=== PATIENT | female | born 1955 | race Caucasian/White ===

== ENCOUNTER 2017-09-12 19:40 | Emergency (ER) | payer OTHER ==
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
--- NOTE | 2017-09-12 21:08 | ER ---
Nurse's Notes [facility] Name: Michelle Saavedra Age: 62 yrs Sex: Female : 1955 Arrival Date: 09/12/2017 Time: 19:41 Bed 5 Private MD: HERB SANCHEZ Diagnosis: Superficial injury of head;Contusion of right hand;Contusion of right forearm Presentation: 09/12 19:47 Presenting complaint: Patient states: Reports bruise to forehead that occurred 2 nights aj ago when patient hit head on a wall. Denies LOC. Patient also reports right forearm pain. Transition of care: patient was not received from another setting of care. Onset of symptoms was September 10, 2017. Risk Assessment: Do you want to hurt yourself or someone else? Patient reports no desire to harm self or others. Care prior to arrival: None. 19:47 Method Of Arrival: Ambulatory aj 19:47 Acuity: JAKUB 3 aj 21:13 Initial Sepsis Screen: Does the patient meet any 2 criteria? No. Patient's initial jd3 sepsis screen is negative. Does the patient have a suspected source of infection? No. Patient's initial sepsis screen is negative. Triage Assessment: 19:50 General: Appears in no apparent distress. comfortable, Behavior is calm, cooperative, aj appropriate for age. Pain: Complains of pain in forehead and right arm. Neuro: Level of Consciousness is awake, alert, obeys commands, Oriented to person, place, time, situation, Appropriate for age. Neuro:. Respiratory: Airway is patent Respiratory effort is even, unlabored, Respiratory pattern is regular, symmetrical. Derm: Skin is intact, is healthy with good turgor, Skin is pink, warm \T\ dry. normal. Historical: - Allergies: 19:50 Morphine; aj - Home Meds: 19:50 Ambien Oral [Active]; aspirin 81 mg Oral tab 1 tab once daily [Active]; atorvastatin 20 aj mg Oral tab 1 tab once daily [Active]; Coumadin 2.5 mg Oral tab 1 tab once daily [Active]; pantoprazole Oral [Active]; Sotalol Oral [Active]; [place] 7.5-325 mg Oral tab 1 tab every 4 hours [Active]; - PMHx: 19:50 Atrial Fib; GERD; Hypertension; mechanical heart valve; Back pain; aj - PSHx: 19:50 Heart Surgery; aj - Immunization history:: Adult Immunizations up to date. - Social history:: Smoking status: Patient/guardian denies using tobacco. - Ebola Screening: : Patient negative for fever greater than or equal to 101.5 degrees Fahrenheit, and additional compatible Ebola Virus Disease symptoms. Screenin:12 Abuse screen: Denies threats or abuse. Nutritional screening: No deficits noted. jd3 Tuberculosis screening: No symptoms or risk factors identified. Fall Risk Fall in past 12 months (25 points). Mental Status- Oriented to own ability (0 pts). Total Fay Fall Scale indicates Low Risk Score (25-44 pts). Fall prevention measures have been instituted. Side Rails Up X 2 Placed close to Nursing Station Frequent Obs/Assesments occuring. Assessment: 20:19 General: Appears in no apparent distress. uncomfortable, Behavior is calm, cooperative, jd3 appropriate for age. Pain: Complains of pain in forehead Pain does not radiate. Quality of pain is described as aching, pressure, Pain began 2-3 days ago. Neuro: Level of Consciousness is awake, alert, obeys commands, Oriented to person, place, time, situation, Appropriate for age Subcontracts Manager are equal bilaterally Moves all extremities. Speech is normal, Facial symmetry appears normal, Pupils are PERRLA, Intact. Cardiovascular: Heart tones S1 S2 present Capillary refill < 3 seconds Patient's skin is warm and dry. Respiratory: Airway is patent Respiratory effort is even, unlabored, Respiratory pattern is regular, symmetrical, Breath sounds are clear bilaterally. GI: Abdomen is round Bowel sounds present X 4 quads. Abd is soft and non tender X 4 quads. Reports nausea. : No signs and/or symptoms were reported regarding the genitourinary system. EENT: No signs and/or symptoms were reported regarding the EENT system. Derm: Skin is intact, Skin is dry, Skin is normal, Skin temperature is warm Bruising that is dark purple, on forehead. Musculoskeletal: Circulation, motion, and sensation intact. Range of motion: intact in all extremities. 21:13 Reassessment: Patient appears in no apparent distress at this time. Patient and/or jd3 family updated on plan of care and expected duration. Pain level reassessed. Patient is alert, oriented x 3, equal unlabored respirations, skin warm/dry/pink. 21:24 Reassessment: Patient appears in no apparent distress at this time. Patient and/or jd3 family updated on plan of care and expected duration. Pain level reassessed. Patient is alert, oriented x 3, equal unlabored respirations, skin warm/dry/pink. pt reporting understanding of discharge instructions, pt assisted to front of ER with wheelchair. Vital Signs: 19:50 BP 193 / 77; Pulse 73; Resp 16; Temp 98.5; Pulse Ox 99% on R/A; Weight 50.8 kg; Height aj 5 ft. 3 in. (160.02 cm); 21:12 BP 168 / 69; Pulse 63; Resp 17 S; Pulse Ox 99% on R/A; jd3 19:50 Body Mass Index 19.84 (50.80 kg, 160.02 cm) ED Course: 19:41 Patient arrived in ED. am2 19:42 HERB SANCHEZ is Private Physician. am2 19:48 Triage completed. aj 19:51 Arm band placed on left wrist. Patient placed in an exam room. aj 19:54 You Vo, RN is Primary Nurse. jd3 19:54 Edilberto Saavedra NP is PHCP. pm1 19:54 Blaine Jarvis MD is Attending Physician. pm1 20:22 X-ray completed. Portable x-ray completed in exam room. Patient tolerated procedure ml well. 20:24 Hand Right 3 View XRAY In Process Unspecified. EDMS 20:24 Forearm Right XRAY In Process Unspecified. EDMS 20:[address] via wheelchair. eh 20:28 CT completed. Patient tolerated procedure well. Patient moved back from CT. eh 20:29 CT Head C Spine In Process Unspecified. EDMS 21:06 HERB SANCHEZ is Referral Physician. pm1 21:13 Patient has correct armband on for positive identification. Bed in low position. Call jd3 light in reach. Side rails up X2. 21:13 No provider procedures requiring assistance completed. Patient did not have IV access jd3 during this emergency room visit. Administered Medications: No medications were administered Outcome: 21:07 Discharge ordered by MD. pm1 21:24 Discharged to home ambulatory, with family. jd3 21:24 Condition: stable 21:24 Discharge instructions given to patient, family, Instructed on discharge instructions, follow up and referral plans. Demonstrated understanding of instructions, follow-up care. 21:25 Patient left the ED. jd3 Signatures: Dispatcher [employer] Cadence Aguila, PHILLIP Power, Claudia Peres Patrick, BARNDON FOREST OFFICER pm1 Cadence Coombs am2 You Vo RN RN jd3 Corrections: (The following items were deleted from the chart) 19:51 19:47 Acuity: JAKUB 4 didier velásquez
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
[2017-09-12 21:30] VITALS: TEMP 98.5; O2SAT 99
[2017-09-12 21:31] VITALS: BP 168/69
== END 2017-09-12 21:25 | disposition home or self-care (01) ==
LOC: ER 19:40
DX: S00.90XA Unspecified superficial injury of unspecified part of head, initial encounter (principal); S60.221A Contusion of right hand, initial encounter; S50.11XA Contusion of right forearm, initial encounter; W50.0XXA Accidental hit or strike by another person, initial encounter; Y93.9 Activity, unspecified; Y92.9 Unspecified place or not applicable; Z79.01 Long term (current) use of anticoagulants; Z79.82 Long term (current) use of aspirin; Z95.4 Presence of other heart-valve replacement; I10 Essential (primary) hypertension; I48.91 Unspecified atrial fibrillation
CPT/HCPCS: 70450; 72125; 99284

== ENCOUNTER 2018-04-04 23:54 | Observation (INO) | payer OTHER ==
[2018-04-05 00:50] LABS: Absolute Lymphocytes (CBC) 0.7 K/uL (0.7-4.9); Absolute Monocytes 0.1 K/uL (0.1-1.3); Absolute Neutrophil 4.4 K/uL (1.8-8.0); Basophils % 0.6 % (0-1.3); Hematocrit 34.6 % (36.0-45.0); Lymphocytes % 12.8 % (15.3-44.8); MPV 9.7 fL (7.6-11.3); Monocytes % 1.6 % (3.3-12.3); RBC Red Blood Cell Count 3.63 M/uL (3.86-4.86)
[2018-04-05 00:58] LABS: Protime INR 2.36
[2018-04-05 01:11] LABS: ALT/SGPT 30 U/L (12-78); AST/SGOT 22 U/L (15-37); Alkaline Phosphatase 83 U/L (45-117); BUN Blood Urea Nitrogen 12 mg/dL (7-18); Bicarbonate 27 mmol/L (21-32); Bilirubin Direct 0.1 mg/dL (0-0.2); Bilirubin Total 0.4 mg/dL (0.2-1.0); Glucose Level 221 mg/dL (74-106); Lipase 133 U/L (73-393); NT PRO-BNP 1854 pg/mL (<125); Potassium 4.4 mmol/L (3.5-5.1); Protein, Total 7.9 g/dL (6.4-8.2); Sodium Level 138 mmol/L (136-145); Troponin (Emerg Dept Use Only) < 0.02 ng/mL (0.0-0.045)
[2018-04-05] MEDS ORDERED: ASPIRIN 81 MG CHEWABLE TABLET ONE (01:42)
[2018-04-05] MEDS ORDERED: PANTOPRAZOLE 40 MG INJ ONE (01:42)
[2018-04-05] MEDS ORDERED: METOPROLOL TARTRATE 5 MG/5 ML INJ IV ONE (01:43)
[2018-04-05] MEDS ORDERED: FENTANYL CITR 100 MCG/2 ML ONE (02:03)
[2018-04-05] MEDS ORDERED: MORPHINE 4 MG/ML SYR IV PRN (02:44)
[2018-04-05] MEDS ORDERED: ALPRAZOLAM 0.25 MG TABLET PO PRN (02:44)
[2018-04-05] MEDS ORDERED: ACETAMINOPHEN 500 MG TAB PO PRN (02:44)
--- NOTE | 2018-04-05 02:51 | ER ---
Nurse's Notes [facility] Name: Michelle Saavedra Age: 62 yrs Sex: Female : 1955 Arrival Date: 04/04/2018 Time: 23:57 Bed 18 Private MD: Diagnosis: Chest pain, unspecified Presentation: 04/05 00:32 Presenting complaint: Patient states: chest pain that started at around 8 PM, pt ea reports chest pain does not radiate, pt reports headache. Transition of care: patient was not received from another setting of care. Onset of symptoms was April 05, 2018. Risk Assessment: Do you want to hurt yourself or someone else? Patient reports no desire to harm self or others. Initial Sepsis Screen: Does the patient meet any 2 criteria? No. Patient's initial sepsis screen is negative. Does the patient have a suspected source of infection? No. Patient's initial sepsis screen is negative. Care prior to arrival: None. 00:32 Method Of Arrival: Wheelchair ea 00:32 Acuity: JAKUB 3 ea Triage Assessment: 00:36 General: Appears in no apparent distress. uncomfortable, Behavior is calm, cooperative, ea appropriate for age. Pain: Complains of pain in anterior aspect of left upper chest and left breast Pain does not radiate. Pain currently is 10 out of 10 on a pain scale. Quality of pain is described as aching. Neuro: Level of Consciousness is awake, alert, obeys commands, Oriented to person, place, time, situation. Cardiovascular: Heart tones S1 S2 present Patient's skin is warm and dry. Respiratory: Airway is patent Respiratory effort is even, unlabored, Respiratory pattern is regular, symmetrical. Derm: Skin is pink, warm \T\ dry. Historical: - Allergies: 00:36 Morphine; ea - Home Meds: 00:36 Ambien Oral [Active]; atorvastatin 20 mg Oral tab 1 tab once daily [Active]; aspirin 81 ea mg Oral tab 1 tab once daily [Active]; Coumadin 2.5 mg Oral tab 1 tab once daily [Active]; [place] 7.5-325 mg Oral tab 1 tab every 4 hours [Active]; pantoprazole Oral [Active]; sotalol Oral [Active]; - PMHx: 00:36 Atrial Fib; Back pain; GERD; Hypertension; mechanical heart valve; ea - PSHx: 00:36 Heart Surgery; ea - Immunization history:: Adult Immunizations up to date. - Social history:: Smoking status: Patient/guardian denies using tobacco. - Ebola Screening: : No symptoms or risks identified at this time. Screenin:33 Abuse screen: Denies threats or abuse. Nutritional screening: No deficits noted. ea Tuberculosis screening: No symptoms or risk factors identified. Fall Risk None identified. Assessment: 00:36 Reassessment: see triage assessment. ea 01:40 Reassessment: Patient and/or family updated on plan of care and expected duration. Pain ea level reassessed. Patient is alert, oriented x 3, equal unlabored respirations, skin warm/dry/pink. 02:47 Reassessment: Patient and/or family updated on plan of care and expected duration. Pain ea level reassessed. Patient is alert, oriented x 3, equal unlabored respirations, skin warm/dry/pink. 03:45 Reassessment: Patient and/or family updated on plan of care and expected duration. Pain ea level reassessed. Patient is alert, oriented x 3, equal unlabored respirations, skin warm/dry/pink. Report called to Basilio FISHER on second floor. 04:20 Reassessment: Patient and/or family updated on plan of care and expected duration. Pain ea level reassessed. Patient is alert, oriented x 3, equal unlabored respirations, skin warm/dry/pink. Vital Signs: 00:33 BP 132 / 93; Pulse 122; Resp 15; Temp 97.2; Pulse Ox 99% ; Weight 50.8 kg; Height 5 ft. ea 3 in. (160.02 cm); Pain 10/10; 01:00 BP 128 / 63; Pulse 57; Resp 18; Pulse Ox 99% ; ea 02:30 BP 128 / 59; Pulse 57; Resp 18; Pulse Ox 99% ; ea 03:00 BP 131 / 66; Pulse 62; Resp 18; Pulse Ox 99% ; ea 04:18 BP 150 / 52; Pulse 60; Resp 20; Pulse Ox 99% on R/A; ea 00:33 Body Mass Index 19.84 (50.80 kg, 160.02 cm) ea ED Course: 04/04 23:57 Patient arrived in ED. ag3 04/05 00:02 Gab Pollock PA is PHCP. cp 00:02 Gab Del Real MD is Attending Physician. cp 00:22 Cora Brush RN is Primary Nurse. ea 00:32 Arm band placed on right wrist. Patient placed in an exam room, on a stretcher, on ea cashier assistant, on pulse oximetry. 00:32 Patient maintains SpO2 saturation greater than 95% on room air. ea 00:33 Triage completed. ea 00:34 Patient has correct armband on for positive identification. Bed in low position. Call ea light in reach. Side rails up X2. engineering group leader on. Pulse ox on. NIBP on. 00:49 X-ray completed. Portable x-ray completed in exam room. Patient tolerated procedure sg4 well. 00:56 XRAY Chest (1 view) In Process Unspecified. EDMS 01:54 Notified ED physician of a critical lab result(s). DDimer [id number] Dr Del Real notified. bb 02:50 Cruz Sabillon MD is Hospitalizing Provider. cp 03:12 No provider procedures requiring assistance completed. Patient admitted, IV remains in ea place. 04:21 CT completed. Patient tolerated procedure well. Patient moved to CT via stretcher. Patient moved back from CT. Administered Medications: 01:00 Drug: Aspirin Chewable Tablet 324 mg Route: PO; ea 01:30 Follow up: Response: No adverse reaction ea 01:00 Drug: ProTONIX 40 mg Route: IVP; Site: left antecubital; ea 01:30 Follow up: Response: No adverse reaction ea 01:30 Drug: Lopressor 5 mg Route: IVP; Site: left antecubital; ea 03:10 Follow up: Response: Other; HR at 57, provider notified. ea 01:49 CANCELLED (Physician Discretion): morphine 2 mg IVP once cp 02:00 Drug: fentaNYL (PF) 25 mcg Route: IVP; Site: left antecubital; cc3 02:30 Follow up: Response: No adverse reaction; Pain is decreased ea Outcome: 02:50 Decision to Hospitalize by Provider. cp 03:13 Instructed on the need for admit. ea 04:24 Admitted to Med/surg accompanied by tech, via wheelchair, room 208, with oxygen, with ea chart, Report called to Basilio FISHER 04:24 Condition: stable 04:25 Patient left the ED. ea Signatures: Dispatcher [employer] EDStuart Torresard, Radha, RN RN Gab El PA PA cp Antunez, Elena, RN RN ea Cordel, Charlene cc3 Fior Patel3 Sade Dinero sg4 Corrections: (The following items were deleted from the chart) 02:02 02:02 Aspirin Chewable Tablet 324 mg PO marietta mcmanus
--- NOTE | 2018-04-05 02:51 | EDPHYS ---
Physician Documentation [facility] Name: Michelle Saavedra Age: 62 yrs Sex: Female : 1955 Arrival Date: 04/04/2018 Time: 23:57 Bed 18 Private MD: ED Physician Gab Del Real HPI: 04/05 00:24 This 62 yrs old Female presents to ER via Unassigned with complaints of Chest cp Pain. 00:24 The patient or guardian reports chest pain that is located primarily in the anterior cp chest wall. Onset: tonight about 1900. The pain does not radiate. Associated signs and symptoms: Pertinent negatives: cough, diaphoresis, dizziness, headache, lower extremity pain, lower extremity swelling, recent travel, vomiting. Duration: The patient or guardian reports multiple episodes, that are intermittent. Historical: - Allergies: 00:36 Morphine; ea - Home Meds: 00:36 Ambien Oral [Active]; atorvastatin 20 mg Oral tab 1 tab once daily [Active]; aspirin 81 ea mg Oral tab 1 tab once daily [Active]; Coumadin 2.5 mg Oral tab 1 tab once daily [Active]; Walton 7.5-325 mg Oral tab 1 tab every 4 hours [Active]; pantoprazole Oral [Active]; sotalol Oral [Active]; - PMHx: 00:36 Atrial Fib; Back pain; GERD; Hypertension; mechanical heart valve; ea - PSHx: 00:36 Heart Surgery; ea - Immunization history:: Adult Immunizations up to date. - Social history:: Smoking status: Patient/guardian denies using tobacco. - Ebola Screening: : No symptoms or risks identified at this time. ROS: 00:30 Constitutional: Negative for body aches, chills, fever, poor PO intake. cp 00:30 Eyes: Negative for injury, pain, redness, and discharge. cp 00:30 ENT: Negative for drainage from ear(s), ear pain, sore throat, difficulty swallowing, difficulty handling secretions. 00:30 Neck: Negative for pain with movement, pain at rest, stiffness. 00:30 Cardiovascular: Positive for chest pain, palpitations, Negative for edema. 00:30 Respiratory: Negative for cough, shortness of breath, wheezing. 00:30 Abdomen/GI: Negative for abdominal pain, nausea, vomiting, and diarrhea, constipation, anorexia, dysphagia, black/tarry stool, rectal bleeding. 00:30 Back: Negative for pain at rest, pain with movement, radiated pain. 00:30 Skin: Negative for cellulitis, rash. 00:30 Neuro: Positive for headache, Negative for altered mental status, weakness. 00:30 All other systems are negative. Exam: 00:12 ECG was reviewed by the Attending Physician. cp 00:35 Constitutional: The patient appears in no acute distress, alert, awake, cp non-diaphoretic, non-toxic, well developed, well nourished. 00:35 Head/Face: Normocephalic, atraumatic. cp 00:35 Eyes: Periorbital structures: appear normal, Conjunctiva: normal, no exudate, no injection, Sclera: no appreciated abnormality, Lids and lashes: appear normal, bilaterally. 00:35 ENT: External ear(s): are unremarkable, Ear canal(s): are normal, clear, TM's: are normal, no evidence of bulging, no erythema, Nose: is normal, Mouth: is normal, Posterior pharynx: is normal, airway is patent, no erythema, no exudate. 00:35 Neck: ROM/movement: is normal, is supple, without pain, no range of motions limitations, no meningismus, no nuchal rigidity. 00:35 Chest/axilla: Inspection: normal, Palpation: is normal, no crepitus, no tenderness. 00:35 Cardiovascular: Rate: tachycardic, Rhythm: regular, Pulses: Pulses are 2+ in right radial artery and left radial artery. Edema: is not appreciated, JVD: is not appreciated. 00:35 Respiratory: the patient does not display signs of respiratory distress, Respirations: normal, no use of accessory muscles, no retractions, no splinting, no tachypnea, labored breathing, is not present, Breath sounds: are clear throughout, no decreased breath sounds, no stridor, no wheezing. 00:35 Abdomen/GI: Inspection: abdomen appears normal, Bowel sounds: active, all quadrants, Palpation: soft, in all quadrants, mild abdominal tenderness, in the right upper quadrant and left upper quadrant, rebound tenderness, is not appreciated, involuntary guarding, is not appreciated. 00:35 Back: pain, is absent, ROM is normal. 00:35 Skin: cellulitis, is not appreciated, no rash present. 00:35 Neuro: Orientation: to person, place \T\ time. Mentation: is normal, Cerebellar function: is grossly normal, Motor: moves all fours, strength is normal, Sensation: is normal, Gait: is steady. Vital Signs: 00:33 BP 132 / 93; Pulse 122; Resp 15; Temp 97.2; Pulse Ox 99% ; Weight 50.8 kg; Height 5 ft. ea 3 in. (160.02 cm); Pain 10/10; 01:00 BP 128 / 63; Pulse 57; Resp 18; Pulse Ox 99% ; ea 02:30 BP 128 / 59; Pulse 57; Resp 18; Pulse Ox 99% ; ea 03:00 BP 131 / 66; Pulse 62; Resp 18; Pulse Ox 99% ; ea 04:18 BP 150 / 52; Pulse 60; Resp 20; Pulse Ox 99% on R/A; ea 00:33 Body Mass Index 19.84 (50.80 kg, 160.02 cm) ea MDM: 00:02 Patient medically screened. cp 00:30 Differential diagnosis: acute myocardial infarction, acute pericarditis, chest wall cp pain, myocarditis, pancreatitis, pericarditis, pneumonia, pneumothorax, pulmonary embolus, stable angina, thoracic aortic disection, unstable angina. 02:43 Physician consultation: Cruz Sabillon MD was contacted at 02:43, regarding admission, cp to the telemetry unit. patient's condition. 02:45 The patient was given aspirin in the Emergency Department. cp 02:45 Data reviewed: vital signs, nurses notes, lab test result(s), EKG, radiologic studies, cp plain films. Test interpretation: by ED physician or midlevel provider: ECG, plain radiologic studies. 04/05 00:17 Order name: Basic Metabolic Panel; Complete Time: : cp 04/05 00:17 Order name: CBC with Diff; Complete Time: cp 04/05 01:48 Interpretation: Normal except: RBC 3.63; HGB 11.8; HCT 34.6; DENISSE% 85.0; LYM% 12.8; MN% cp 1.6. 04/05 00:17 Order name: LFT's; Complete Time: cp 04/05 00:17 Order name: Magnesium; Complete Time: cp 04/05 00:17 Order name: NT PRO-BNP; Complete Time: 01:27 04/05 00:17 Order name: PT-INR; Complete Time: 01:48 04/05 00:17 Order name: Troponin (emerg Dept Use Only); Complete Time: 01:27 04/05 00:22 Order name: Urine Microscopic Only 04/05 00:30 Order name: Lipase; Complete Time: 01:27 EDIL 04/05 01:30 Order name: LAB Add On 04/05 01:33 Order name: D-Dimer; Complete Time: 01:48 EDIL 04/05 02:51 Order name: Basic Metabolic Panel [facility] 04/05 02:51 Order name: Basic Metabolic Panel [facility] 04/05 00:17 Order name: XRAY Chest (1 view) 04/05 00:17 Order name: EKG; Complete Time: 00:18 04/05 01:49 Order name: CT Chest For PE Angio 04/05 02:51 Order name: Echo with Doppler [facility] 04/05 02:51 Order name: CBC with Automated Diff [facility] 04/05 02:51 Order name: CBC with Automated Diff [facility] 04/05 02:51 Order name: Lipid Profile [facility] 04/05 02:51 Order name: Lipid Profile [facility] 04/05 02:51 Order name: Troponin I [facility] 04/05 02:51 Order name: Troponin I [facility] 04/05 02:51 Order name: Troponin I [facility] 04/05 00:17 Order name: Cardiac monitoring; Complete Time: 01:39 04/05 00:17 Order name: EKG - Nurse/Tech; Complete Time: 00:29 04/05 00:17 Order name: IV Saline Lock; Complete Time: 00:32 04/05 00:17 Order name: Labs collected and sent; Complete Time: 00:32 04/05 00:17 Order name: O2 Per Protocol; Complete Time: 00:31 04/05 00:17 Order name: O2 Sat Monitoring; Complete Time: 00:31 04/05 00:22 Order name: Urine Dipstick-Ancillary (obtain specimen); Complete Time: 00:31 04/05 02:51 Order name: CONS Physician Consult [facility] 04/05 02:51 Order name: Heart Healthy [facility] 04/05 02:51 Order name: EKG Electrocardiogram [facility] 04/05 02:51 Order name: EKG Electrocardiogram EDIL EC:12 Rate is 117 beats/min. Rhythm is regular. AK interval is shortened at 96 msec. QRS cp interval is prolonged at 100 msec. QT interval is normal. Interpreted by me. Reviewed by me. Administered Medications: 01:00 Drug: Aspirin Chewable Tablet 324 mg Route: PO; ea 01:30 Follow up: Response: No adverse reaction ea 01:00 Drug: ProTONIX 40 mg Route: IVP; Site: left antecubital; ea 01:30 Follow up: Response: No adverse reaction ea 01:30 Drug: Lopressor 5 mg Route: IVP; Site: left antecubital; ea 03:10 Follow up: Response: Other; HR at 57, provider notified. ea 01:49 CANCELLED (Physician Discretion): morphine 2 mg IVP once cp 02:00 Drug: fentaNYL (PF) 25 mcg Route: IVP; Site: left antecubital; cc3 02:30 Follow up: Response: No adverse reaction; Pain is decreased ea Disposition: 04/05/18 02:50 Hospitalization ordered by rCuz Sabillon for Observation. Preliminary diagnosis is Chest pain, unspecified. - Bed requested for Telemetry/MedSurg (observation). - Status is Observation. ea - Condition is Stable. - Problem is new. - Symptoms have improved. UTI on Admission? No Addendum: 04/15/2018 11:15 Co-signature as Attending Physician, Gab Del Real MD I agree with the assessment and c alford plan of care. Signatures: Dispatcher [employer] [facility] Gab Del Real MD MD cha Page, Corey, PA PA cp Garcia, Cindy, RN RN cg Cora Brush RN RN ea Cordel, Charlene cc3 Corrections: (The following items were deleted from the chart) 04/05 00:30 00:22 LIPASE+C.LAB.BRZ ordered. [facility] 01:49 00:21 morphine 2 mg IVP once ordered. cp cp 03:08 02:50 Hospitalization Ordered by Cruz Sabillon MD for Observation. Preliminary cg diagnosis is Chest pain, unspecified. Bed requested for Telemetry/MedSurg (observation). Status is Observation. Condition is Stable. Problem is new. Symptoms have improved. UTI on Admission? No. cp 04:25 03:08 04/05/2018 02:50 Hospitalization Ordered by Cruz Sabillon MD for Observation. ea Preliminary diagnosis is Chest pain, unspecified. Bed requested for Telemetry/MedSurg (observation). Status is Observation. Condition is Stable. Problem is new. Symptoms have improved. UTI on Admission? No. cg
[2018-04-05] MEDS ORDERED: HYDROCODONE/APAP 10/325 TAB PO PRN (03:25)
[2018-04-05] MEDS ORDERED: HYDROMORPHONE HCL 1 MG/ML INJ IV PRN ×2 (03:25→05:05)
[2018-04-05 05:04] VITALS: BMI 19.9
[2018-04-05] MEDS ORDERED: HYDROMORPHONE HCL 1 MG/ML INJ ONE (05:07)
[2018-04-05 06:31] LABS: HDL Cholesterol 84 mg/dL (40-60); LDL Cholesterol, Calculated 98 (<130); Troponin I < 0.02 ng/mL (0.0-0.045)
--- NOTE | 2018-04-05 08:07 | RAD REPORT ---
EXAM DESCRIPTION: CT - Chest For Pe Angio - 04/05/2018 6:53 am CLINICAL HISTORY: Chest pain COMPARISON: April 2017 TECHNIQUE: Dynamically enhanced axial 3 mm thick images of the chest were obtained during administra tion of <100> mL Isovue 370 IV contrast. Coronal and oblique reconstruction images were generated and reviewed. Exam utilizes a protocol for optimal evaluation of pulmonary arterial tree.A preliminary a estela report generated by virtual radiologic and reviewed prior to dictation Maximum intensity projections 3D imaging was utilized All CT scans are performed using dose optimization technique as appropriate and may include automated exposure control or mA/KV adjustment according to patient size. FINDINGS: A pulmonary embolus is not seen. A 4 centimeter descending thoracic aortic aneurysm is unchanged. 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 Aortic valve repair A pleural effusion is not seen. A pericardial effusion is not seen. A lung consolidation is not present. Small hiatal hernia. Mild thickening distal esophageal wall IMPRESSION: Negative for a pulmonary embolism. Two mild thickening of the wall of the distal esophagus may indicate esophagitis
[2018-04-05 08:49] LABS: Urine Appearance CLEAR; Urine Bilirubin NEGATIVE (NEG); Urine Blood 2+ (NEG); Urine Color YELLOW; Urine Glucose NEGATIVE (NEG); Urine Protein NEGATIVE (NEG); Urine Specific Gravity >=1.030 (1.005-1.030); Urine Urobilinogen 0.2 mg/dL (0.2-1.0)
--- NOTE | 2018-04-05 08:53 | P.HP ---
Certification for Inpatient Patient admitted to: Observation With expected LOS: <2 Midnights Patient will require the following post-hospital care: None Practitioner: I am a practitioner with admitting privileges, knowledge of patient current condition, hospital course, and medical plan of care. Services: Services provided to patient in accordance with Admission requirements found in Title 42 Section 412.3 of the Code of Federal Regulations Patient History Date of Service: 04/05/18 Reason for admission: Chest pain rule out acute coronary syndrome History of Present Illness: Patient is a 62-year-old female came to the hospital with chest pain. Pain was mainly in the sternal region. The was no radiation. Patient states she was short of breath and had diaphoresis. Patient had a history of aortic valve repair. Initial workup in the ER was unremarkable. Troponins are negative. At this time will go ahead and work patient up rule out for acute coronary syndrome. Allergies morphine Allergy (Intermediate, Verified 04/05/18 04:34) panic ATTACK; shaking fentanyl Allergy (Verified 04/05/18 04:34) Itching Home Medications: Zolpidem Tartrate [Ambien*] 10 mg PO BEDTIME 07/07/13 Pantoprazole [Protonix Tab*] 40 mg PO DAILYAC #30 tab 06/16/15 Aspirin Chewable [Aspirin Chewable*] 81 mg PO DAILY 04/30/17 Atorvastatin Calcium 40 mg PO BEDTIME 04/30/17 Sotalol HCl [Betapace] 80 mg PO BID #60 tab 05/17/17 Warfarin Sodium [Coumadin*] 2.5 mg PO BEDTIME 04/05/18 - Past Medical/Surgical History Has patient received pneumonia vaccine in the past: Yes Diabetic: No -: chronic back pain -: depression -: gallstones -: kidney infection -: GERD -: mechanical aorta -: palpitations -: Atrial fibrillation -: aortic valve replacement -: cardioversion -: tubal ligation - Family History Brother Medical History: Cancer Notes: heart attack Father Medical History: Heart disease, Other (see notes) Notes: mother and siblings as well Mother Medical History: Heart disease, Diabetes Notes: of heart attack Sister Medical History: Heart disease, Diabetes, Cancer Notes: sisters x2 - DM. sister x1 - heart attack. sister- lung cancer - Social History Smoking Status: Never smoker Alcohol use: No CD- Drugs: No Caffeine use: Yes Place of Residence: Home Review of Systems 10-point ROS is otherwise unremarkable Physical Examination - Vital Signs Temperature: 98.0 F Blood Pressure: 163/74 Pulse: 67 Respirations: 18 Pulse Ox (%): 98 - Physical Exam General: Alert, In no apparent distress, Oriented x3 HEENT: Atraumatic, PERRLA, Mucous membr. moist/pink, EOMI, Sclerae nonicteric Neck: Supple, 2+ carotid pulse no bruit, No LAD, Without JVD or thyroid abnormality Respiratory: Clear to auscultation bilaterally, Normal air movement Cardiovascular: Regular rate/rhythm, Normal S1 S2, Systolic murmur Gastrointestinal: Normal bowel sounds, Soft and benign, Non-distended, No tenderness Musculoskeletal: No clubbing, No swelling, No tenderness Integumentary: No rashes Neurological: Normal gait, Normal speech, Normal strength at 5/5 x4 extr, Normal tone, Sensation intact, Cranial nerves 3-12 intact, Normal affect Lymphatics: No axilla or inguinal lymphadenopathy - Studies Laboratory Data (last 24 hrs) 04/05/18 00:40: PT 28.1 H, INR 2.36 04/05/18 00:40: WBC 5.2, Hgb 11.8 L, Hct 34.6 L, Plt Count 182 04/05/18 00:40: Sodium 138, Potassium 4.4, BUN 12, Creatinine 1.14, Glucose 221 H, Magnesium 2.0, Total Bilirubin 0.4, AST 22, ALT 30, Alkaline Phosphatase 83, Lipase 133 04/05/18 00:21: Lipase Cancelled Assessment & Plan - Problems (Diagnosis) (1) Atrial fibrillation with rapid ventricular response Onset Date: 06/28/14 Current Visit: No Status: Acute (2) Chest pain Onset Date: 06/15/15 Current Visit: No Status: Acute Qualifiers: Chest pain type: chest pain on breathing Qualified Code(s): R07.1 - Chest pain on breathing (3) H/O aortic valve repair Current Visit: No Status: Acute (4) Shortness of breath Onset Date: 05/15/17 Current Visit: No Status: Acute - Plan 1. Serial troponins and EKG 2. Cardiology consultation 3. Echocardiogram was done earlier this year; no significant abnormalities; patient had cardioversion earlier this year as well. Sinus rhythm on sotalol 4. Anti-platelet therapy, anti coagulation, beta-poornima, statin, and O2 as needed 5. IV pain medication 6. GI and DVT prophylax Discharge Plan: Home Plan to discharge in: Greater than 2 days - Advance Directives Does patient have a Living Will: No Does patient have a Durable POA for Healthcare: No - Code Status/Comfort Care Code Status Assessed: Yes Code Status: Full Code Critical Care: No Time Spent Managing PTS Care (In Minutes): 50
[2018-04-05 09:00] LABS: Urine Microscopic Reflex ORDER UMIC
[2018-04-05] MEDS ORDERED: SOTALOL HCL 80 MG TAB PO SCH (09:00)
[2018-04-05] MEDS ORDERED: METOPROLOL TAR 50 MG TAB PO SCH (09:00)
[2018-04-05] MEDS ORDERED: ENOXAPARIN 40 MG/0.4 ML SQ SCH (09:00)
[2018-04-05] MEDS ORDERED: ASPIRIN EC 81 MG TAB PO SCH (09:00)
[2018-04-05 09:16] LABS: Urine Bacteria >50 /HPF (<20); Urine Culture Reflex Order REFLEXED; Urine RBC 20-50 /HPF (NONE SEEN)
--- NOTE | 2018-04-05 09:51 | RAD REPORT ---
EXAM DESCRIPTION: Phyllis Single View04/05/2018 12:55 am CLINICAL HISTORY: Chest pain COMPARISON: April 2017 FINDINGS: The lungs appear clear of acute infiltrate. The heart is mildly enlarged. Postsurgical changes involve the chest. IMPRESSION: No acute abnormalities displayed
[2018-04-05] MEDS ORDERED: INFLUENZA VACCINE (for 3y+) 0.5 ML DOSE IMVAC ONE (13:00)
[2018-04-05] MEDS ORDERED: PNEUMOCOCCAL VACCINE 0.5 ML IMVAC ONE (13:00)
[2018-04-05 15:02] VITALS: O2SAT 98
--- NOTE | 2018-04-05 16:09 | EKG ---
Test Date: 2018-04-05 Test Time: 00:05:41 Radio Host: ELFEGO MEASUREMENT RESULTS: Intervals: Rate: 117 WI: 96 QRSD: 100 QT: 336 QTc: 468 [place]: P: 93 WI: 96 QRS: 49 T: 158 INTERPRETIVE STATEMENTS: Sinus tachycardia with short WI with premature supraventricular complexes Marked ST abnormality, possible inferolateral subendocardial injury Abnormal ECG Compared to ECG 05/16/2017 12:52:10 Atrial premature complex(es) now present Short WI interval now present Sinus rhythm no longer present Sinus arrhythmia no longer present ST (T wave) deviation still present Electronically Signed On 04-05-18 16:08:04 ACCOUNT DEVELOPMENT REPRESENTATIVE by Soren Carter
[2018-04-05 17:53] VITALS: BP 137/65; TEMP 97.9
[2018-04-05] MEDS ORDERED: WARFARIN SODIUM 2.5 MG TAB PO SCH (21:00)
[2018-04-05] MEDS ORDERED: ATORVASTATIN 40 MG TAB PO SCH (21:00)
[2018-04-05] MEDS ORDERED: ZOLPIDEM TARTRATE 5 MG TABLET PO SCH (21:00)
[2018-04-06] MEDS ORDERED: PANTOPRAZOLE 40MG TABLET PO SCH (07:30)
--- NOTE | 2018-04-07 01:55 | CON ---
Date of Consultation: 04/05/2018 The patient was admitted to Dr. Freeman's service on 04/05/2018. She was seen on 04/05/2018. Reason For Consultation: Chest pain and palpitations. History Of Present Illness: Ms. Saavedra is very well known to us from previous office visits and admi ssions. She has a history of atrial fibrillation, has a history of mechanical aortic valve replaceme nt, I believe in 1988. She has a history of atrial fibrillation status post cardioversion in April of 2017, has chronic back pain, hypertension, gastroesophageal reflux disease. She has a history of dyslipidemia. She is on Coumadin for her aortic valve and atrial fibrillation. She came in mostly with palpitation rather than chest pain. The chest pain was sharp, stabbing. No fevers or chills or cough. No relationship to exertion. Chest pain has resolved by the time I saw her. An echocardiog shantell in April of 2017 was normal. Chest x-ray is negative. She had a CT angiogram of the chest samuel wing esophagitis. Allergies: SHE IS ALLERGIC TO MORPHINE AND FENTANYL. Review of Systems: Negative. Social History: Negative. Family History: Noncontributory. Medications: At home include aspirin, Lipitor, Protonix, sotalol, Coumadin, and Ambien. Physical Examination: General: She was pleasant, in no acute distress. Vital Signs: Stable. She was in sinus rhythm. HEENT: Negative. Neck: Supple with no bruit. Chest: Clear to auscultation and percussion. Cardiac: Exam reveals a regular rhythm and rate with a crisp aortic valve sound. No gallops or rubs . Abdomen: Benign. Extremities: Revealed no clubbing, cyanosis, or edema. Diagnostic Data: Her D-dimer was 794. INR 2.36, glucose of 221. BNP is 1854. Troponin is negative . Impression And Plan: 1.Atypical chest pain, most likely esophagitis by CT angio. Myocardial infarction has ruled out. S he had normal coronaries when she had her aortic valve replacement in the past. Her last echo in Apr showed normally functioning prosthetic valve. I suggested an outpatient Lexiscan when s he goes home. She follows up with Dr. Dan in [place]. 2.Atrial fibrillation and sinus rhythm, right now on Coumadin and sotalol. 3.Dyslipidemia, on Lipitor. 4.Hypertension, well controlled. 5.Gastroesophageal reflux disease. 6.Chronic back pain. As stated earlier, I will continue present regimen. Consider increasing Richard nix. Outpatient Lexiscan recommended with Dr. Dan as an outpatient. PANCHITO/WILIAML Voice ID: [id number] Report ID: [id number]
== END 2018-04-05 18:06 | disposition home or self-care (01) ==
LOC: ER 23:54 → ERHOLD 04-05 02:45 → 2ND 04-05 04:13
PROVIDERS: ADMIT Hospitalist; ATTEND Hospitalist
DX: I48.91 Unspecified atrial fibrillation (principal); R07.9 Chest pain, unspecified; K21.9 Gastro-esophageal reflux disease without esophagitis; F32.9 Major depressive disorder, single episode, unspecified; E78.5 Hyperlipidemia, unspecified; M54.9 Dorsalgia, unspecified; Z79.01 Long term (current) use of anticoagulants; Z95.2 Presence of prosthetic heart valve; Z23 Encounter for immunization
CPT/HCPCS: 36415; 71045; 71275; 80048; 80061; 80076; 81003; 81015; 83690; 83735; 83880; 84484; 85025; 85379; 85610; 87077; 87086; 87088; 87186; 90670; 93005; 96374; 96375; 99285; C9113; G0008; G0009; G0378; J1170; J3010; Q2035; Q9967

== ENCOUNTER 2018-04-20 20:00 | Emergency (ER) | payer OTHER ==
[2018-04-20] MEDS ORDERED: MECLIZINE HCL 12.5 MG TAB ONE (21:01)
[2018-04-20] MEDS ORDERED: NA CHLORIDE 0.9% 1,000 ML ONE (21:02)
--- NOTE | 2018-04-20 21:11 | RAD REPORT ---
EXAM DESCRIPTION: RAD - Chest Single View - 04/20/2018 9:01 pm CLINICAL HISTORY: CHEST PAIN Chest pain. COMPARISON: Chest Single View dated 04/05/2018; Chest Single View dated 05/14/2017; Chest Single View dated 04/30/2017; Chest Single View dated 03/31/2017 FINDINGS: Portable technique limits examination quality. The lungs are grossly clear. The heart is mildly enlarged in size. Thoracolumbar scoliosis is present .Sternotomy wires are present. IMPRESSION: No acute intrathoracic process suspected.
--- NOTE | 2018-04-20 21:13 | RAD REPORT ---
EXAM DESCRIPTION: CT - Head Brain Wo Cont - 04/20/2018 9:03 pm CLINICAL HISTORY: DIZZINESS Headache, drowsiness COMPARISON: Facial Bones W/ Mpr dated 02/10/2017; HEAD BRAIN W O CONTRAST dated 06/14/2015; Head C Spi ne Mpr Wo Con dated 09/12/2017 TECHNIQUE: All CT scans are performed using dose optimization technique as appropriate and may inclu de automated exposure control or mA/KV adjustment according to patient size. FINDINGS: No intracranial hemorrhage, hydrocephalus or extra-axial fluid collection.No areas of brai n edema or evidence of midline shift. The paranasal sinuses and mastoids are clear. The calvarium is intact. IMPRESSION: No acute intracranial abnormality.
[2018-04-20 21:25] LABS: Absolute Lymphocytes (CBC) 1.8 K/uL (0.7-4.9); Absolute Monocytes 0.6 K/uL (0.1-1.3); Absolute Neutrophil 1.8 K/uL (1.8-8.0); Basophils % 1.2 % (0-1.3); Eosinophils % 4.9 % (0-4.4); Hematocrit 32.6 % (36.0-45.0); Lymphocytes % 39.8 % (15.3-44.8); MPV 8.7 fL (7.6-11.3); RBC Red Blood Cell Count 3.35 M/uL (3.86-4.86)
[2018-04-20 21:48] LABS: Protime INR 5.4
[2018-04-20] MEDS ORDERED: MORPHINE 4 MG/ML SYR ONE (21:54)
[2018-04-20] MEDS ORDERED: ONDANSETRON 4 MG/2 ML VIAL ONE (21:54)
[2018-04-20 21:56] LABS: ALT/SGPT 30 U/L (12-78); AST/SGOT 30 U/L (15-37); Albumin 3.7 g/dL (3.4-5.0); Alkaline Phosphatase 70 U/L (45-117); BUN Blood Urea Nitrogen 8 mg/dL (7-18); Bicarbonate 30 mmol/L (21-32); Bilirubin Direct 0.1 mg/dL (0-0.2); Bilirubin Total 0.3 mg/dL (0.2-1.0); Glucose Level 71 mg/dL (74-106); Magnesium 2.1 mg/dL (1.8-2.4); NT PRO-BNP 754 pg/mL (<125); Potassium 3.9 mmol/L (3.5-5.1); Protein, Total 7.1 g/dL (6.4-8.2); Sodium Level 144 mmol/L (136-145); Troponin (Emerg Dept Use Only) < 0.02 ng/mL (0.0-0.045)
[2018-04-20] MEDS ORDERED: MEPERIDINE HCL 25 MG/0.5 ML ONE (22:01)
[2018-04-20] MEDS ORDERED: VITAMIN K (ADULT) 10 MG/ML ONE (23:17)
--- NOTE | 2018-04-21 00:58 | ER ---
Nurse's Notes [facility] Name: Michelle Saavedra Age: 62 yrs Sex: Female : 1955 Arrival Date: 04/20/2018 Time: 20:03 Bed 5 Private MD: None, None Diagnosis: Chest pain. Coumadin toxicity Presentation: 04/20 20:14 Presenting complaint: Patient states: felt heart racing yesterday, woke up this morning lp1 with fatigue, dull pain to chest, generalized weakness, and headache. Transition of care: patient was not received from another setting of care. Onset of symptoms was April 20, 2018. Risk Assessment: Do you want to hurt yourself or someone else? Patient reports no desire to harm self or others. Initial Sepsis Screen: Does the patient meet any 2 criteria? No. Patient's initial sepsis screen is negative. Does the patient have a suspected source of infection? No. Patient's initial sepsis screen is negative. Care prior to arrival: None. 20:14 Method Of Arrival: Wheelchair lp1 20:14 Acuity: JAKUB 3 lp1 Historical: - Allergies: 20:20 Morphine; lp1 20:20 Fentanyl; lp1 - Home Meds: 20:20 Ambien Oral [Active]; aspirin 81 mg Oral tab 1 tab once daily [Active]; atorvastatin 20 lp1 mg Oral tab 1 tab once daily [Active]; sotalol 80 mg oral tab 2 times per day [Active]; Coumadin 2.5 mg Oral tab 1 tab once daily [Active]; [place] 7.5-325 mg Oral tab 1 tab every 4 hours [Active]; pantoprazole Oral [Active]; - PMHx: 20:20 Atrial Fib; Back pain; GERD; Hypertension; mechanical heart valve; Hyperlipidemia; lp1 - PSHx: 20:20 Tubal ligation; lp1 - Immunization history:: Adult Immunizations up to date. - Social history:: Smoking status: Patient/guardian denies using tobacco. - Ebola Screening: : No symptoms or risks identified at this time. Screenin:20 Abuse screen: Denies threats or abuse. Denies injuries from another. Nutritional lp1 screening: No deficits noted. Tuberculosis screening: No symptoms or risk factors identified. 20:53 Fall Risk Ambulatory Aid- None/Bed Rest/Nurse Assist (0 pts). Gait- Normal/Bed jd3 Rest/Wheelchair (0 pts) Mental Status- Oriented to own ability (0 pts). Total Fay Fall Scale indicates No Risk (0-24 pts). Assessment: 20:49 General: Appears in no apparent distress. uncomfortable, Behavior is calm, cooperative, jd3 appropriate for age. Pain: Complains of pain in chest Pain does not radiate. Quality of pain is described as aching, pressure, Pain began 1 day ago. Neuro: Level of Consciousness is awake, alert, obeys commands, Oriented to person, place, time, situation, Appropriate for age. Cardiovascular: Reports chest pain, Capillary refill < 3 seconds Patient's skin is warm and dry. Rhythm is regular Parent/caregiver reports patient has had pt with history of artificial heart valve. Respiratory: Reports shortness of breath Airway is patent Respiratory effort is even, unlabored, Respiratory pattern is regular, symmetrical, Breath sounds are clear bilaterally. GI: Abdomen is round non-distended, Bowel sounds present X 4 quads. Abd is soft Abdomen is tender to palpation X 4 quads. Reports lower abdominal pain, upper abdominal pain, nausea, vomiting. : No signs and/or symptoms were reported regarding the genitourinary system. EENT: No signs and/or symptoms were reported regarding the EENT system. Derm: Skin is intact, Skin is dry, Skin is normal, Skin temperature is warm. Musculoskeletal: Circulation, motion, and sensation intact. Range of motion: intact in all extremities. 21:45 Reassessment: Patient appears in no apparent distress at this time. No changes from jd3 previously documented assessment. Patient and/or family updated on plan of care and expected duration. Pain level reassessed. Patient is alert, oriented x 3, equal unlabored respirations, skin warm/dry/pink. 22:45 Reassessment: Patient appears in no apparent distress at this time. No changes from jd3 previously documented assessment. Patient and/or family updated on plan of care and expected duration. Pain level reassessed. Patient is alert, oriented x 3, equal unlabored respirations, skin warm/dry/pink. 23:11 Reassessment: Patient appears in no apparent distress at this time. No changes from jd3 previously documented assessment. Patient and/or family updated on plan of care and expected duration. Pain level reassessed. Patient is alert, oriented x 3, equal unlabored respirations, skin warm/dry/pink. 04/21 00:14 Reassessment: Patient appears in no apparent distress at this time. Patient and/or jd3 family updated on plan of care and expected duration. Pain level reassessed. Patient is alert, oriented x 3, equal unlabored respirations, skin warm/dry/pink. 01:27 Reassessment: Patient and/or family updated on plan of care and expected duration. Pain ea level reassessed. Patient is alert, oriented x 3, equal unlabored respirations, skin warm/dry/pink. Discharge instructions given to patient, verbalized the understanding of instruction. Vital Signs: 04/20 20:17 BP 152 / 54; Pulse 49; Resp 18; Temp 98.7(O); Pulse Ox 100% on R/A; Weight 50.8 kg; lp1 Height 5 ft. 3 in. (160.02 cm); Pain 8/10; 21:48 Pulse 53; Resp 17 S; Pulse Ox 100% on R/A; jd3 23:11 BP 137 / 48; Pulse 54; Resp 17 S; Pulse Ox 100% on R/A; jd3 04/21 00:15 BP 128 / 51; Pulse 53; Resp 17 S; Pulse Ox 100% on R/A; jd3 01:00 BP 126 / 45; Pulse 54; Resp 19; Pulse Ox 97% ; ea 04/20 20:17 Body Mass Index 19.84 (50.80 kg, 160.02 cm) lp1 ED Course: 04/20 20:03 Patient arrived in ED. mr 20:03 None, None is Private Physician. mr 20:16 Triage completed. lp1 20:18 Arm band placed on left wrist. lp1 20:20 Patient maintains SpO2 saturation greater than 95% on room air. lp1 20:40 David Merida MD is Attending Physician. pkl 20:45 You Vo RN is Primary Nurse. jd3 20:53 Patient has correct armband on for positive identification. Placed in gown. Bed in low jd3 position. Call light in reach. Side rails up X 1. monitoring tech on. Pulse ox on. NIBP on. 20:59 X-ray completed. Portable x-ray completed in exam room. Patient tolerated procedure sg4 well. 21:00 XRAY Chest (1 view) In Process Unspecified. EDMS 21:04 CT Head Brain wo Cont In Process Unspecified. EDMS 21:04 CT completed. Patient tolerated procedure well. Patient moved back from CT. bq 21:15 Inserted saline lock: 20 gauge in left antecubital area, using aseptic technique. Blood jd3 collected. 21:55 Notified ED physician of a critical lab result(s). INR of 5.4 Dr Merida notified. bb 04/21 01:12 No provider procedures requiring assistance completed. ea 01:15 IV discontinued, intact, bleeding controlled, No redness/swelling at site. Pressure ea dressing applied. Administered Medications: 04/20 20:59 Drug: Antivert 25 mg Route: PO; ea 23:27 Follow up: Response: No adverse reaction jd3 21:25 Drug: NS 0.9% 1000 ml Route: IV; Rate: 100 ml/hr; Site: left antecubital; jd3 04/21 01:00 Follow up: Response: No adverse reaction; IV Intake: 400ml ea 04/20 21:57 Drug: Demerol 25 mg Route: IVP; Site: left antecubital; jd3 23:28 Follow up: Response: No adverse reaction jd3 21:58 Drug: Zofran 4 mg Route: IVP; Site: left antecubital; jd3 23:28 Follow up: Response: No adverse reaction jd3 23:15 Drug: Vitamin K1 10 mg Route: Sub-Q; Site: right lower abdomen; ea 04/21 00:17 Follow up: Response: No adverse reaction jd3 Intake: 01:00 IV: 400ml; Total: 400ml. ea Outcome: 00:58 Discharge ordered by . christy 01:30 Discharged to home ambulatory. ea 01:30 Condition: stable 01:30 Discharge instructions given to patient, Instructed on discharge instructions, follow up and referral plans. Demonstrated understanding of instructions, follow-up care. 01:31 Patient left the ED. ea Signatures: Dispatcher [employer] David Cameron MD MD pkl RiveraKathrin Betty Radha Sarmiento RN RN bb Pena, Laura, RN RN lp1 Cora Brush RN RN ea Davies, Jonathon, RN RN jd3 Garcia, Susana sg4 Corrections: (The following items were deleted from the chart) 04/20 23:13 21:48 Pulse 54bpm; Resp 17bpm; Spontaneous; Pulse Ox 100% RA; jd3 jd3
--- NOTE | 2018-04-21 00:59 | EDPHYS ---
Physician Documentation [facility] Name: Michelle Saavedra Age: 62 yrs Sex: Female : 1955 Arrival Date: 04/20/2018 Time: 20:03 Bed 5 Private MD: None, None ED Physician David Merida HPI: 04/20 20:49 This 62 yrs old Female presents to ER via Wheelchair with complaints of Chest pkl Pain, Dizziness. 20:49 The patient or guardian reports chest pain that is located primarily in the substernal pkl area. Onset: this morning. The pain does not radiate. Associated signs and symptoms: Pertinent positives: dizziness, headache. The chest pain is described as dull. The patient has been recently been admitted at [facility], was discharged last week, for similar complaints. Historical: - Allergies: 20:20 Morphine; lp1 20:20 Fentanyl; lp1 - Home Meds: 20:20 Ambien Oral [Active]; aspirin 81 mg Oral tab 1 tab once daily [Active]; atorvastatin 20 lp1 mg Oral tab 1 tab once daily [Active]; sotalol 80 mg oral tab 2 times per day [Active]; Coumadin 2.5 mg Oral tab 1 tab once daily [Active]; [place] 7.5-325 mg Oral tab 1 tab every 4 hours [Active]; pantoprazole Oral [Active]; - PMHx: 20:20 Atrial Fib; Back pain; GERD; Hypertension; mechanical heart valve; Hyperlipidemia; lp1 - PSHx: 20:20 Tubal ligation; lp1 - Immunization history:: Adult Immunizations up to date. - Social history:: Smoking status: Patient/guardian denies using tobacco. - Ebola Screening: : No symptoms or risks identified at this time. ROS: 20:49 Eyes: Negative for injury, pain, redness, and discharge, ENT: Negative for injury, pkl pain, and discharge, Neck: Negative for injury, pain, and swelling. 20:49 Cardiovascular: Positive for chest pain. 20:49 Respiratory: Negative for cough, shortness of breath. 20:49 Abdomen/GI: Negative for abdominal pain, nausea, vomiting, and diarrhea. 20:49 Back: Negative for acute changes. 20:49 : Negative for urinary symptoms. 20:49 MS/extremity: Negative for acute changes. 20:49 Skin: Negative for rash. 20:49 Neuro: Positive for dizziness, headache. Exam: 20:49 Head/Face: Normocephalic, atraumatic. Eyes: Pupils equal round and reactive to light, pkl extra-ocular motions intact. Lids and lashes normal. Conjunctiva and sclera are non-icteric and not injected. Cornea within normal limits. Periorbital areas with no swelling, redness, or edema. ENT: Nares patent. No nasal discharge, no septal abnormalities noted. Tympanic membranes are normal and external auditory canals are clear. Oropharynx with no redness, swelling, or masses, exudates, or evidence of obstruction, uvula midline. Mucous membranes moist. Neck: Trachea midline, no thyromegaly or masses palpated, and no cervical lymphadenopathy. Supple, full range of motion without nuchal rigidity, or vertebral point tenderness. No Meningismus. Chest/axilla: Normal chest wall appearance and motion. Nontender with no deformity. No lesions are appreciated. Cardiovascular: Regular rate and rhythm with a normal S1 and S2. No gallops, murmurs, or rubs. Normal PMI, no JVD. No pulse deficits. Respiratory: Lungs have equal breath sounds bilaterally, clear to auscultation and percussion. No rales, rhonchi or wheezes noted. No increased work of breathing, no retractions or nasal flaring. Abdomen/GI: Soft, non-tender, with normal bowel sounds. No distension or tympany. No guarding or rebound. No evidence of tenderness throughout. Back: No spinal tenderness. No costovertebral tenderness. Full range of motion. Skin: Warm, dry with normal turgor. Normal color with no rashes, no lesions, and no evidence of cellulitis. MS/ Extremity: Pulses equal, no cyanosis. Neurovascular intact. Full, normal range of motion. Neuro: Awake and alert, GCS 15, oriented to person, place, time, and situation. Cranial nerves II-XII grossly intact. Motor strength 5/5 in all extremities. Sensory grossly intact. Cerebellar exam normal. Normal gait. Vital Signs: 20:17 BP 152 / 54; Pulse 49; Resp 18; Temp 98.7(O); Pulse Ox 100% on R/A; Weight 50.8 kg; lp1 Height 5 ft. 3 in. (160.02 cm); Pain 8/10; 21:48 Pulse 53; Resp 17 S; Pulse Ox 100% on R/A; jd3 23:11 BP 137 / 48; Pulse 54; Resp 17 S; Pulse Ox 100% on R/A; jd3 07 00:15 BP 128 / 51; Pulse 53; Resp 17 S; Pulse Ox 100% on R/A; jd3 01:00 BP 126 / 45; Pulse 54; Resp 19; Pulse Ox 97% ; ea 04/20 20:17 Body Mass Index 19.84 (50.80 kg, 160.02 cm) lp1 MDM: 04/20 20:40 Patient medically screened. pkl 04/21 00:52 Data reviewed: vital signs, nurses notes, lab test result(s), EKG, radiologic studies, pkl plain films. ED course: Discussed lab, EKG and X' rays results with patient. TO hold Coumadin tomorrow. Follow up with Dr. Dan ( Hydrometeorologist ) in 1 to 2 days. Patient understood instructions. 04/20 20:46 Order name: Basic Metabolic Panel; Complete Time: 22:49 pkl 04/20 20:46 Order name: CBC with Diff; Complete Time: 22:49 pkl 04/20 20:46 Order name: LFT's; Complete Time: 22:49 pkl 04/20 20:46 Order name: Magnesium; Complete Time: 22:49 pkl 04/20 20:46 Order name: NT PRO-BNP; Complete Time: 22:49 pkl 04/20 20:46 Order name: PT-INR; Complete Time: 22:49 pkl 04/20 20:46 Order name: Troponin (emerg Dept Use Only); Complete Time: 22:49 pkl 04/20 20:46 Order name: XRAY Chest (1 view); Complete Time: 22:49 pkl 04/20 20:49 Order name: CT Head Brain wo Cont; Complete Time: 22:49 pkl 04/20 21:26 Order name: D-Dimer; Complete Time: 22:49 EDMS 04/20 22:54 Order name: Troponin (emerg Dept Use Only); Complete Time: 00:51 pkl 04/20 20:38 Order name: EKG - Nurse/Tech; Complete Time: 20:38 lp1 04/20 20:38 Order name: EKG; Complete Time: 20:39 lp1 04/20 20:46 Order name: Cardiac monitoring; Complete Time: 21:24 pkl 04/20 20:46 Order name: IV Saline Lock; Complete Time: 21:18 pkl 04/20 20:46 Order name: Labs collected and sent; Complete Time: 21:18 pkl 04/20 20:46 Order name: O2 Per Protocol; Complete Time: 20:54 pkl 04/20 20:46 Order name: O2 Sat Monitoring; Complete Time: 20:54 pkl 04/20 22:54 Order name: EKG; Complete Time: 22:54 pkl Administered Medications: 04/20 20:59 Drug: Antivert 25 mg Route: PO; ea 23:27 Follow up: Response: No adverse reaction jd3 21:25 Drug: NS 0.9% 1000 ml Route: IV; Rate: 100 ml/hr; Site: left antecubital; jd3 04/21 01:00 Follow up: Response: No adverse reaction; IV Intake: 400ml 04/20 21:57 Drug: Demerol 25 mg Route: IVP; Site: left antecubital; jd3 23:28 Follow up: Response: No adverse reaction jd3 21:58 Drug: Zofran 4 mg Route: IVP; Site: left antecubital; jd3 23:28 Follow up: Response: No adverse reaction jd3 23:15 Drug: Vitamin K1 10 mg Route: Sub-Q; Site: right lower abdomen; ea 04/21 00:17 Follow up: Response: No adverse reaction jd3 Disposition: 04/21/18 00:58 Discharged to Home. Impression: Chest pain. Coumadin toxicity. - Condition is Stable. - Medication Reconciliation Form, Thank You Letter, Antibiotic Education, Prescription Opioid Use form. - Follow up: Private Physician; When: 1 - 2 days; Reason: Re-evaluation by your physician. - Problem is new. - Symptoms have improved. Signatures: Dispatcher [employer] David Cameron MD MD pkCarmen Yeh, RN RN lp1 Cora Brush RN You Fishman ea RN RN jd3 Corrections: (The following items were deleted from the chart) 04/20 21:26 20:48 D-DIMER+COAG.LAB.BRZ ordered. ED EDMS 04/21 01:31 00:58 04/21/2018 00:58 Discharged to Home. Impression: Chest pain. Coumadin toxicity. ea Condition is Stable. Forms are Medication Reconciliation Form, Thank You Letter, Antibiotic Education, Prescription Opioid Use. Follow up: Private Physician; When: 1 - 2 days; Reason: Re-evaluation by your physician. Problem is new. Symptoms have improved. pkl
[2018-04-21 01:56] VITALS: TEMP 98.7
[2018-04-21 02:03] VITALS: BP 126/45; O2SAT 97
--- NOTE | 2018-04-21 06:25 | EKG ---
Test Date: 2018-04-21 Test Time: 00:14:35 Production Machinist: SELENE MEASUREMENT RESULTS: Intervals: Rate: 53 MA: 186 QRSD: 86 QT: 490 QTc: 459 [place]: P: 91 MA: 186 QRS: 49 T: 66 INTERPRETIVE STATEMENTS: Sinus bradycardia Nonspecific ST and T wave abnormality Abnormal ECG Compared to ECG 04/20/2018 20:28:48 ST (T wave) deviation now present Electronically Signed On 04-21-18 06:16:47 ASPNET DEVELOPER by Vishnu Huitron
--- NOTE | 2018-04-21 06:26 | EKG ---
Test Date: 2018-04-20 Test Time: 20:28:48 Gunner'S Mate G: DAYNA MEASUREMENT RESULTS: Intervals: Rate: 47 MS: 188 QRSD: 90 QT: 498 QTc: 440 Point: P: 96 MS: 188 QRS: 64 T: 63 INTERPRETIVE STATEMENTS: Sinus bradycardia Otherwise normal ECG Compared to ECG 04/05/2018 00:05:41 Sinus tachycardia no longer present Atrial premature complex(es) no longer present Short MS interval no longer present ST (T wave) deviation no longer present Electronically Signed On 04-21-18 06:17:12 EQUIPMENT MAINTENANCE ENGINEER by Vishnu Huitron
== END 2018-04-21 01:31 | disposition home or self-care (01) ==
LOC: ER 20:00
DX: R07.9 Chest pain, unspecified (principal); R94.31 Abnormal electrocardiogram [ECG] [EKG]; T45.515A Adverse effect of anticoagulants, initial encounter; E78.5 Hyperlipidemia, unspecified; I48.91 Unspecified atrial fibrillation; I10 Essential (primary) hypertension; K21.9 Gastro-esophageal reflux disease without esophagitis; Z79.82 Long term (current) use of aspirin; Z79.01 Long term (current) use of anticoagulants; Z79.899 Other long term (current) drug therapy; Z95.2 Presence of prosthetic heart valve
CPT/HCPCS: 36415; 70450; 71045; 80048; 80076; 83735; 83880; 84484; 85025; 85379; 85610; 93005; 96372; 96374; 96375; 99285; J2175; J2405; J3430; J7030

== ENCOUNTER 2019-03-02 12:23 | Observation (INO) | payer OTHER ==
--- OUTSIDE RECORDS SUMMARY | 2019-03-02 12:25 | XMS REPORT ---
:1955 [facility] Address [address] [place] [address] Care Team Providers Name Role Phone Unavailable Unavailable Unavailable Problems This patient has no known problems. Allergies, Adverse Reactions, Alerts This patient has no known allergies or adverse reactions. Medications This patient has no known medications.
--- OUTSIDE RECORDS SUMMARY | 2019-03-02 12:25 | XMS REPORT | Summary of Care ---
:1955 Author Organization [facility] - Health Address [address] [place] [id number] Care Team Providers Name Role Phone Manuel Contrerashanie Ricci Primary Care Provider Nurse, Babak Johnson Unavailable Unavailable Encounter Details Date Type Department Care Team Description 11/08/2018 Orders Only [facility] Doctor Unassigned, No [address] [facility] [place] [address] [address] [place] [address] Allergies Active Allergy Reactions Severity Noted Date Comments Morphine Shortness of Breath High 04/29/2006 documented as of this encounter (statuses as of 11/18/2018) Medications Medication Sig Dispensed Refills Start Date End Date Status NITROGLYCERIN 0.4 MG SL 1 Tab SL Q5MIN 30 0 04/30/2006 Active SUBL PRN aspirin 81 mg chewable Take 1 tablet by 30 tablet 3 02/08/2016 Active tablet mouth daily. ferrous sulfate 325 mg Take 1 tablet by 90 tablet 3 02/08/2016 Active (65 mg iron) tablet mouth 3 (three) times daily with meals. pantoprazole 40 mg EC 0 07/27/2016 Active tablet zolpidem 10 mg tablet 0 08/03/2016 Active gabapentin 300 mg Take by mouth 0 08/03/2016 Active capsule daily. HYDROcodone-acetaminoph 0 08/03/2016 Active en 10-325 mg tablet lidocaine 5 % (700 0 08/03/2016 Active mg/patch) patch atorvastatin 40 mg Take 1 tablet by 90 tablet 2 06/02/2018 Active tabletIndications: mouth at bedtime. Mixed hyperlipidemia warfarin 2.5 mg Take as directed 15 tablet 0 10/27/2018 Active tabletIndications: PAF by AntiCoag (paroxysmal atrial Clinic based on fibrillation) INR results. sotalol 80 mg tablet Take 1 tablet by 60 tablet 3 10/27/2018 Active mouth 2 (two) times daily. documented as of this encounter (statuses as of 11/18/2018) Active Problems Problem Noted Date Mixed hyperlipidemia 12/02/2017 Essential hypertension 12/02/2017 Anticoagulated 12/02/2017 Coronary artery disease involving [place] coronary artery of [place] heart 12/02 without angina pectoris Coronary artery disease involving [place] heart without angina pectoris, 2017 unspecified vessel or lesion type Atrial flutter 07/16/2016 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] 02/10/2016 Chest pain with high risk for cardiac etiology 02/04/2016 documented as of this encounter (statuses as of 11/18/2018) Social History Tobacco Use Types Packs/Day Years Used Date Never Smoker Smokeless Tobacco: Never Used Sex Assigned at Date Recorded Not on file Job Start Date Occupation Industry Not on file Not on file Not on file Travel History Travel Start Travel End No recent travel history available. documented as of this encounter Last Filed Vital Signs Not on filedocumented in this encounter Plan of Treatment Date Type Specialty Care Team Description 01/05/2019 Office Visit Cardiology Jamaica Dan MD [address] [place] [id number] [phone] Health Maintenance Due Date Last Done Comments HEPATITIS C (HCV) SCREEN 1955 DTaP,Tdap,and Td Vaccines (1 - Tdap) 1972 MAMMOGRAM 1993 COLONOSCOPY 2003 Zoster Recombinant Vaccine (SHINGRIX) (1 of 2) 2003 Medicare Wellness Visit 2018 Osteoporosis Screening 2018 PNEUMOCOCCAL VACCINES 65+ (1 of 2 - PCV13) 2018 INFLUENZA VACCINE 12/14/2018 documented as of this encounter Procedures Procedure Name Priority Date/Time Associated Diagnosis Comments SCANNED LAB RESULTS Routine 11/08/2018 12:01 AM CDT documented in this encounter Results SCANNED LAB RESULTS (11/08/2018 12:01 AM CDT) Specimen Performing Organization Address City/State/Zipcode Phone Number HIM documented in this encounter Insurance Payer Benefit Plan Subscriber ID Effective Phone Address Type / Group Dates MEDICARE MEDICARE PART xxxxxxxxxxx 2018-[place] [phone] Medicare [place] [id number] [place] [id number] [facility] xxxxxxxxx 2013-[place] Medicaid [facility] STAR PLUS nt PLAN - MANAGED MEDICAID documented as of this encounter
--- OUTSIDE RECORDS SUMMARY | 2019-03-02 12:26 | XMS REPORT | Summary of Care ---
:1955 Author Organization [facility] Address [address] [place] [id number] Care Team Providers Name Role Phone Eliane Contreras Primary Care Provider Nurse, Babak Johnson Unavailable Unavailable Reason for Visit Reason Comments TEST RESULTS [facility] PT[facility]r Encounter Details Date Type Department Care Team Description 11/26/2018 Telephone [facility] [place] Dan MD TEST RESULTS ([facility]- [address] PTinr) [address] [facility] [place] [id number] Allergies Active Allergy Reactions Severity Noted Date Comments Morphine Shortness of Breath High 04/29/2006 documented as of this encounter (statuses as of 11/26/2018) Medications Medication Sig Dispensed Refills Start Date [...] Active tabletIndications: mouth at bedtime. Mixed hyperlipidemia sotalol 80 mg tablet Take 1 tablet by 60 tablet 3 10/27/2018 Active mouth 2 (two) times daily. warfarin 2.5 mg Take as directed 30 tablet 1 11/20/2018 Active tabletIndications: PAF by AntiCoag (paroxysmal atrial Clinic based on fibrillation) INR results. documented as of this encounter (statuses as of 11/26/2018) Active Problems Problem Noted Date Mixed hyperlipidemia 12/02/2017 Essential hypertension 12/02/2017 Anticoagulated 12/02/2017 Coronary artery disease involving [place] coronary artery of [place] heart 12/02 without angina pectoris Coronary artery disease involving [place] heart without angina pectoris, 2017 unspecified vessel or lesion type Atrial flutter 07/16/2016 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] 02/10/2016 Chest pain with high risk for cardiac etiology 02/04/2016 documented as of this encounter (statuses as of 11/26/2018) Social History Tobacco Use Types Packs/Day Years [...] 01/05/2019 Office Visit Cardiology [place] Dan MD [address] [place] [phone] Health Maintenance Due Date Last Done Comments HEPATITIS C (HCV) SCREEN 1955 DTaP,Tdap,and Td Vaccines (1 - Tdap) 1972 MAMMOGRAM 1993 COLONOSCOPY 2003 Zoster Recombinant Vaccine (SHINGRIX) (1 of 2) 2003 Medicare Wellness Visit 2018 Osteoporosis Screening 2018 PNEUMOCOCCAL VACCINES 65+ (1 of 2 - PCV13) 2018 INFLUENZA VACCINE 12/14/2018 documented as of this encounter Results Not on filedocumented in this encounter Insurance Payer Benefit Plan Subscriber ID Effective Phone Address Type / Group Dates MEDICARE MEDICARE PART xxxxxxxxxxx 2018-[place] [phone] Medicare A & B nt [id number] [place] [id number] [facility] xxxxxxxxx 2013-[place] Medicaid HEALTHCARE COMM STAR PLUS nt PLAN - MANAGED MEDICAID documented as of this encounter
--- OUTSIDE RECORDS SUMMARY | 2019-03-02 12:26 | XMS REPORT | Summary of Care ---
:1955 Author Organization [facility] - Health Address [address] [place] [id number] Care Team Providers Name Role Phone Eliane Contreras Primary Care Provider Nurse, Babak Johnson Unavailable Unavailable Reason for Visit Reason Comments Anticoagulation Encounter Details Date Type Department Care Team Description 11/17/2018 Telephone [facility] Cardiology- [place] Dan MD Anticoagulation [place] [address] [facility] [address] [facility], [address] [place] [address] [place] [address] Allergies Active Allergy Reactions Severity Noted Date Comments Morphine Shortness of Breath High 04/29/2006 documented as of this encounter (statuses as of 11/19/2018) Medications Medication Sig Dispensed Refills Start Date [...] as of this encounter (statuses as of 11/19/2018) Active Problems Problem Noted Date Mixed hyperlipidemia 12/02/2017 Essential hypertension 12/02/2017 Anticoagulated 12/02/2017 Coronary artery disease involving hopi coronary artery of hopi heart 12/02 without angina pectoris Coronary artery disease involving hopi heart without angina pectoris, 2017 unspecified vessel or lesion type Atrial flutter 07/16/2016 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] 02/10/2016 Chest pain with high risk for cardiac etiology 02/04/2016 documented as of this encounter (statuses as of 11/19/2018) Social History Tobacco Use Types Packs/Day Years [...] 01/05/2019 Office Visit Cardiology Jamaica Dan MD [address] [place] [address] [place] [address] [id number] Health Maintenance Due Date Last Done Comments [...] BOX Medicare A & B nt [id number] [place] [phone] [facility] xxxxxxxxx 2013-[place] Medicaid HEALTHCARE COMM STAR PLUS nt PLAN - MANAGED MEDICAID documented as of this encounter
--- OUTSIDE RECORDS SUMMARY | 2019-03-02 12:26 | XMS REPORT | Summary of Care ---
:1955 Author Organization [facility] - [facility] Address [address] [place] [id number] Care Team Providers Name Role Phone Eliane Contreras Primary Care Provider Nurse, Babak Johnson Unavailable Unavailable Reason for Visit Reason Comments Refill Request Warfarin Encounter Details Date Type Department Care Team Description 11/20/2018 Refill [facility] Cardiology- Jamaica Dan MD Refill Request [address] (Warfarin) [address] [place] [address], [address] [place] [address] [place], [place] [id number] Allergies Active Allergy Reactions Severity Noted Date Comments Morphine Shortness of Breath High 04/29/2006 documented as of this encounter (statuses as of 11/20/2018) Medications Medication Sig Dispensed Refills Start Date End Date Status NITROGLYCERIN 0.4 MG 1 Tab SL Q5MIN 30 0 04/30/2006 Active SL SUBL PRN aspirin 81 mg Take 1 tablet 30 tablet 3 02/08/2016 Active chewable tablet by mouth daily. ferrous sulfate 325 Take 1 tablet 90 tablet 3 02/08/2016 Active mg (65 mg iron) by mouth 3 tablet (three) times daily with meals. pantoprazole 40 mg 0 07/27/2016 Active EC tablet zolpidem 10 mg 0 08/03/2016 Active tablet gabapentin 300 mg Take by mouth 0 08/03/2016 Active capsule daily. HYDROcodone-acetamin 0 08/03/2016 Active ophen 10-325 mg tablet lidocaine 5 % (700 0 08/03/2016 Active mg/patch) patch atorvastatin 40 mg Take 1 tablet 90 tablet 2 06/02/2018 Active tabletIndications: by mouth at Mixed hyperlipidemia bedtime. sotalol 80 mg tablet Take 1 tablet 60 tablet 3 10/27/2018 Active by mouth 2 (two) times daily. warfarin 2.5 mg Take as 30 tablet 1 11/20/2018 Active tabletIndications: directed by PAF (paroxysmal AntiCoag atrial fibrillation) Clinic based on INR results. warfarin 2.5 mg Take as 15 tablet 0 10/27/2018 Discontinued tabletIndications: directed by 9 PAF (paroxysmal AntiCoag atrial fibrillation) Clinic based on INR results. documented as of this encounter (statuses as of 11/20/2018) Active Problems Problem Noted Date Mixed hyperlipidemia 12/02/2017 Essential hypertension 12/02/2017 Anticoagulated 12/02/2017 Coronary artery disease involving wichita coronary artery of [place]ichita heart 12/02 without angina pectoris Coronary artery disease involving [place]ita heart without angina pectoris, 2017 unspecified vessel or lesion type Atrial flutter 07/16/2016 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] 02/10/2016 Chest pain with high risk for cardiac etiology 02/04/2016 documented as of this encounter (statuses as of 11/20/2018) Social History Tobacco Use Types Packs/Day Years [...] 01/05/2019 Office Visit Cardiology Jamaica Dan MD [address] [place] [address] [place] [address] [phone] Health Maintenance Due Date Last Done Comments HEPATITIS C (HCV) SCREEN 1955 DTaP,Tdap,and Td Vaccines (1 - Tdap) 1972 MAMMOGRAM 1993 COLONOSCOPY 2003 Zoster Recombinant Vaccine (SHINGRIX) (1 of 2) 2003 Medicare Wellness Visit 2018 Osteoporosis Screening 2018 PNEUMOCOCCAL VACCINES 65+ (1 of 2 - PCV13) 2018 INFLUENZA VACCINE 12/14/2018 documented as of this encounter Results Not on filedocumented in this encounter Visit Diagnoses Diagnosis PAF (paroxysmal atrial fibrillation) Atrial fibrillation documented in this encounter Insurance Payer Benefit Plan Subscriber ID Effective Phone Address Type / Group Dates MEDICARE MEDICARE PART xxxxxxxxxxx 2018-[place] [phone] Medicare A & B nt [id number] [place] [phone] [facility] xxxxxxxxx 2013-[place] Medicaid HEALTHCARE COMM STAR PLUS nt PLAN - MANAGED MEDICAID documented as of this encounter
[2019-03-02 13:22] LABS: Absolute Lymphocytes (CBC) 1.7 K/uL (0.7-4.9); Basophils % 1.1 % (0-1.3); Hematocrit 26.9 % (36.0-45.0); Lymphocytes % 34.1 % (15.3-44.8); MPV 9.9 fL (7.6-11.3); RBC Red Blood Cell Count 3.13 M/uL (3.86-4.86)
[2019-03-02 13:31] LABS: Protime INR 4.69
[2019-03-02 13:39] LABS: ALT/SGPT 27 U/L (12-78); AST/SGOT 25 U/L (15-37); Alkaline Phosphatase 99 U/L (45-117); BUN Blood Urea Nitrogen 14 mg/dL (7-18); Bicarbonate 30 mmol/L (21-32); Bilirubin Total 0.4 mg/dL (0.2-1.0); Glucose Level 83 mg/dL (74-106); Magnesium 2.1 mg/dL (1.8-2.4); NT PRO-BNP 1576 pg/mL (<125); Potassium 3.9 mmol/L (3.5-5.1); Protein, Total 7.3 g/dL (6.4-8.2); Sodium Level 143 mmol/L (136-145); Troponin (Emerg Dept Use Only) < 0.02 ng/mL (0.0-0.045)
--- NOTE | 2019-03-02 14:02 | RAD REPORT ---
EXAM DESCRIPTION: RAD - Chest Single View - 03/02/2019 1:04 pm CLINICAL HISTORY: Left-sided chest pain, shortness of breath COMPARISON: April 2018 TECHNIQUE: AP portable chest image was obtained 1256 hours . FINDINGS: Mild chronic interstitial lung disease is present matching comparison. No focal mass or co nsolidation. Heart size is upper normal, similar to comparison. No acute vascular engorgement. Trache a is midline. Sternotomy wires are in place. No measurable pleural effusion and no pneumothorax. No a cute bony abnormality seen. No acute aortic findings suspected. IMPRESSION: No acute cardiopulmonary process. No significant change from comparison.
[2019-03-02] MEDS ORDERED: KETOROLAC 30 MG/ML INJ ONE (14:18)
--- NOTE | 2019-03-02 14:30 | EDPHYS ---
Physician Documentation [facility] Name: Michelle Saavedra Age: 63 yrs Sex: Female : 1955 Arrival Date: 03/02/2019 Time: 12:26 Bed 23 Private MD: ED Physician Jamie Deng HPI: 03/02 12:41 This 63 yrs old Female presents to ER via Ambulatory with complaints of Chest ps1 Pain, Dizziness. 12:41 patient states symptoms started last night while at the stove cooking. She states that ps1 she had left sided chest pain that has been persistent since then. She is a patient of Dr. Dan in [place]. Does not remember the last cath or stress performed. She believes within the last year. She has a history of mechanical heart valve replacement. Pain is rated as moderate and fluctuating. Described as pressure and non-radiating. . Historical: - Allergies: 12:30 Fentanyl; hb 12:30 Morphine; hb - PMHx: 12:30 Atrial Fib; GERD; Hyperlipidemia; Back pain; Hypertension; mechanical heart valve; hb - PSHx: 12:30 Tubal ligation; hb - Immunization history:: Adult Immunizations up to date. - Social history:: Smoking status: Patient/guardian denies using tobacco. - Ebola Screening: : No symptoms or risks identified at this time. ROS: 12:41 Constitutional: Negative for fever, chills, and weight loss, Eyes: Negative for injury, ps1 pain, redness, and discharge, Respiratory: Negative for shortness of breath, cough, wheezing, and pleuritic chest pain, Abdomen/GI: Negative for abdominal pain, nausea, vomiting, diarrhea, and constipation, MS/Extremity: Negative for injury and deformity, Skin: Negative for injury, rash, and discoloration, Neuro: Negative for headache, weakness, numbness, tingling, and seizure. 12:41 Cardiovascular: Positive for chest pain, of the anterior aspect of left upper chest, atrial fibrillation. Exam: 12:41 Constitutional: This is a well developed, well nourished patient who is awake, alert, ps1 and in no acute distress. Head/Face: Normocephalic, atraumatic. Eyes: Pupils equal round and reactive to light, extra-ocular motions intact. Lids and lashes normal. Conjunctiva and sclera are non-icteric and not injected. Cardiovascular: Regular rate and rhythm. No gallops, murmurs, or rubs. Normal PMI, no JVD. No pulse deficits. Respiratory: Lungs have equal breath sounds bilaterally, clear to auscultation and percussion. No rales, rhonchi or wheezes noted. No increased work of breathing, no retractions or nasal flaring. Abdomen/GI: Soft, non-tender, with normal bowel sounds. No distension or tympany. No guarding or rebound. No evidence of tenderness throughout. Skin: Warm, dry with normal turgor. Normal color with no rashes, no lesions, and no evidence of cellulitis. Neuro: Awake and alert, GCS 15, oriented to person, place, time, and situation. Cranial nerves II-XII grossly intact. Sensory grossly intact. 12:41 Chest/axilla: Inspection: scar from midline sternotomy, Palpation: is normal. Vital Signs: 12:30 BP 169 / 48; Pulse 51; Resp 16; Temp 97.2; Pulse Ox 98% on R/A; Weight 50.8 kg; Height hb 5 ft. 3 in. (160.02 cm); Pain 10/10; 13:30 BP 162 / 56; Pulse 50; Resp 18; Pulse Ox 98% on R/A; aj1 14:30 BP 178 / 64; Pulse 50; Resp 18; Pulse Ox 98% on R/A; aj1 15:30 BP 146 / 55; Pulse 51; Resp 18; Pulse Ox 100% on R/A; aj1 16:11 BP 134 / 62; Pulse 50; Resp 18; Pulse Ox 97% on R/A; aj1 12:30 Body Mass Index 19.84 (50.80 kg, 160.02 cm) hb MDM: 13:26 Patient medically screened. ps1 14:28 Differential diagnosis: abnormal EKG, acute myocardial infarction, anxiety, coronary ps1 artery disease chest wall pain, congestive heart failure costochondritis, pneumonia, pneumothorax, unstable angina. Data reviewed: vital signs. Counseling: I had a detailed discussion with the patient and/or guardian regarding: the historical points, exam findings, and any diagnostic results supporting the discharge/admit diagnosis, the presence of at least one elevated blood pressure reading (>120/80) during this emergency department visit, lab results, radiology results, the need for further work-up and treatment in the hospital. ED course: Admitted patient and transferred care at [address] Reddy. . 03/02 12:40 Order name: CBC with Diff; Complete Time: 13:26 [facility] 03/02 13:27 Interpretation: Abnormal: HGB 8.8; MCV 85.9; Normocytic anemia. [facility] 03/02 12:40 Order name: Magnesium; Complete Time: 13:45 [facility] 03/02 12:40 Order name: NT PRO-BNP; Complete Time: 13:45 [facility] 03/02 13:46 Interpretation: Abnormal: NT PRO-BNP 1576. [facility] 03/02 12:40 Order name: PT-INR; Complete Time: 13:45 [facility] 03/02 13:46 Interpretation: Abnormal: INR 4.69. [facility] 03/02 12:40 Order name: Troponin (emerg Dept Use Only); Complete Time: 13:45 [facility] 03/02 12:40 Order name: CMP; Complete Time: 13:45 [facility] 03/02 15:13 Order name: CBC with Automated Diff [facility] 03/02 15:13 Order name: CBC with Automated Diff [facility] 03/02 15:13 Order name: CKMB Creatine Kinase MB [facility] 03/02 15:13 Order name: CKMB Creatine Kinase MB [facility] 03/02 15:13 Order name: CKMB Creatine Kinase MB [facility] 03/02 15:13 Order name: CKMB Creatine Kinase MB [facility] 03/02 15:13 Order name: Comprehensive Metabolic Panel [facility] 03/02 15:13 Order name: Comprehensive Metabolic Panel [facility] 03/02 12:40 Order name: XRAY Chest (1 view); Complete Time: 14:23 [facility] 03/02 12:40 Order name: EKG; Complete Time: 12:41 [facility] 03/02 15:13 Order name: CONS Pharmacy Consult [facility] 03/02 15:13 Order name: CONS Physician Consult [facility] 03/02 15:13 Order name: Creatine Phosphokinase [facility] 03/02 15:13 Order name: Creatine Phosphokinase [facility] 03/02 15:13 Order name: Creatine Phosphokinase [facility] 03/02 15:13 Order name: Creatine Phosphokinase [facility] 03/02 15:13 Order name: Lipid Profile [facility] 03/02 15:13 Order name: Lipid Profile [facility] 03/02 15:13 Order name: Troponin I [facility] 03/02 15:13 Order name: Troponin I [facility] 03/02 15:13 Order name: Troponin I [facility] 03/02 15:23 Order name: CT-HEAD/BRAIN W/O CONTRAST [facility] 03/02 15:48 Order name: CT; Complete Time: 15:54 [facility] 03/02 12:40 Order name: Cardiac monitoring; Complete Time: 12:46 [facility] 03/02 12:40 Order name: EKG - Nurse/Tech; Complete Time: 12:46 [facility] 03/02 12:40 Order name: IV Saline Lock; Complete Time: 13:04 [facility] 03/02 12:40 Order name: Labs collected and sent; Complete Time: 13:04 [facility] 03/02 12:40 Order name: O2 Per Protocol; Complete Time: 12:46 [facility] 03/02 12:40 Order name: O2 Sat Monitoring; Complete Time: 12:47 [facility] 03/02 15:13 Order name: Heart Healthy EDCT EC:03 Rate is 50 beats/min. Rhythm is regular. QRS [place] is Normal. SC interval is normal. QRS ps1 interval is normal. QT interval is normal. No Q waves. T waves are Normal. No ST changes noted. Clinical impression: Sinus bradycardia. Interpreted by me. Administered Medications: 14:21 Drug: TORadol 30 mg Route: IVP; Site: left antecubital; aj1 Disposition: 03/02/19 14:28 Hospitalization ordered by Dale Reddy for Observation. Preliminary diagnosis are Other chest pain, history of atrial fibrillation, Elevated INR, Normocytic anemia, elevated BNP, history of prosthetic valve repair. - Bed requested for Telemetry/MedSurg (observation). - Status is Observation. aj1 - Condition is Stable. - Problem is new. - Symptoms are unchanged. UTI on Admission? No Signatures: Dispatcher [employer] EDMS FelisaMarli dial Ileana Oswald RN RN aj1 Seema Bruno RN RN hb Singer, Phillip, MD MD ps1 Corrections: (The following items were deleted from the chart) 13:27 13:26 Abnormal: HGB 8.8. ps1 ps1 15:31 14:28 Hospitalization Ordered by Dale Reddy MD for Observation. Preliminary bd diagnosis is Other chest pain; history of atrial fibrillation; Elevated INR; Normocytic anemia; elevated BNP; history of prosthetic valve repair. Bed requested for Telemetry/MedSurg (observation). Status is Observation. Condition is Stable. Problem is new. Symptoms are unchanged. UTI on Admission? No. ps1 16:19 15:31 03/02/2019 14:28 Hospitalization Ordered by Dale Reddy MD for Observation. aj1 Preliminary diagnosis is Other chest pain; history of atrial fibrillation; Elevated INR; Normocytic anemia; elevated BNP; history of prosthetic valve repair. Bed requested for Telemetry/MedSurg (observation). Status is Observation. Condition is Stable. Problem is new. Symptoms are unchanged. UTI on Admission? No. bd 16:59 16:19 03/02/2019 14:28 Hospitalization Ordered by Dale Reddy MD for Observation. aj1 Preliminary diagnosis is Other chest pain; history of atrial fibrillation; Elevated INR; Normocytic anemia; elevated BNP; history of prosthetic valve repair. Bed requested for Telemetry/MedSurg (observation). Status is Observation. Condition is Stable. Problem is new. Symptoms are unchanged. UTI on Admission? No. aj1
--- NOTE | 2019-03-02 14:30 | ER ---
Nurse's Notes [facility] Name: Michelle Saavedra Age: 63 yrs Sex: Female : 1955 Arrival Date: 03/02/2019 Time: 12:26 Bed 23 Private MD: Diagnosis: Other chest pain;history of atrial fibrillation;Elevated INR;Normocytic anemia;elevated BNP;history of prosthetic valve repair Presentation: 03/02 12:28 Presenting complaint: Left sided chest pressure and SOB that started last night while hb cooking dinner. Denies fever/N/V/cough. Transition of care: patient was not received from another setting of care. Onset of symptoms was March 01, 2019. Risk Assessment: Do you want to hurt yourself or someone else? Patient reports no desire to harm self or others. Initial Sepsis Screen: Does the patient meet any 2 criteria? No. Patient's initial sepsis screen is negative. Does the patient have a suspected source of infection? No. Patient's initial sepsis screen is negative. Care prior to arrival: None. 12:28 Method Of Arrival: Ambulatory hb 12:28 Acuity: JAKUB 3 hb Historical: - Allergies: 12:30 Fentanyl; hb 12:30 Morphine; hb - PMHx: 12:30 Atrial Fib; GERD; Hyperlipidemia; Back pain; Hypertension; mechanical heart valve; hb - PSHx: 12:30 Tubal ligation; hb - Immunization history:: Adult Immunizations up to date. - Social history:: Smoking status: Patient/guardian denies using tobacco. - Ebola Screening: : No symptoms or risks identified at this time. Screenin:44 Abuse screen: Denies threats or abuse. Denies injuries from another. Nutritional aj1 screening: No deficits noted. Tuberculosis screening: No symptoms or risk factors identified. 16:18 Fall Risk No fall in past 12 months (0 pts). No secondary diagnosis (0 pts). IV access aj1 (20 points). Ambulatory Aid- None/Bed Rest/Nurse Assist (0 pts). Gait- Normal/Bed Rest/Wheelchair (0 pts) Mental Status- Oriented to own ability (0 pts). Total Fay Fall Scale indicates No Risk (0-24 pts). Assessment: 12:44 General: Appears in no apparent distress. comfortable, Behavior is calm, cooperative, aj1 appropriate for age. Pain: Complains of pain in chest Pain does not radiate. Pain currently is 10 out of 10 on a pain scale. Pain began 1 day ago. Neuro: Level of Consciousness is awake, alert, obeys commands, Oriented to person, place, time, situation, Speech is normal, Facial symmetry appears normal, Reports dizziness. Cardiovascular: Reports chest pain, lightheadedness, shortness of breath, Heart tones S1 S2 present Murmur present Patient's skin is warm and dry. Respiratory: Airway is patent Respiratory effort is even, unlabored, Respiratory pattern is regular, symmetrical, Breath sounds are clear bilaterally. GI: No signs and/or symptoms were reported involving the gastrointestinal system. : No signs and/or symptoms were reported regarding the genitourinary system. EENT: No signs and/or symptoms were reported regarding the EENT system. Derm: No signs and/or symptoms reported regarding the dermatologic system. Skin is pink, warm \T\ dry. normal. Musculoskeletal: No signs and/or symptoms reported regarding the musculoskeletal system. Circulation, motion, and sensation intact. 13:45 Reassessment: Patient appears in no apparent distress at this time. No changes from aj1 previously documented assessment. Patient and/or family updated on plan of care and expected duration. Pain level reassessed. Patient is alert, oriented x 3, equal unlabored respirations, skin warm/dry/pink. 14:20 Reassessment: Patient states that she is having pain because she has a bad back and aj1 would like some pain medication. Notified Dr. Deng. Order received. 15:30 Reassessment: Patient and/or family updated on plan of care and expected duration. Pain aj1 level reassessed. General: Appears in no apparent distress. comfortable, Behavior is calm, cooperative, appropriate for age. Neuro: Level of Consciousness is awake, alert, obeys commands, Oriented to person, place, time, situation, Speech is normal, Facial symmetry appears normal. Cardiovascular: Patient's skin is warm and dry. Rhythm is sinus tachycardia. Respiratory: Airway is patent Respiratory effort is even, unlabored, Respiratory pattern is regular, symmetrical. EENT: No signs and/or symptoms were reported regarding the EENT system. Derm: No signs and/or symptoms reported regarding the dermatologic system. Skin is pink, warm \T\ dry. normal. 16:10 Reassessment: Attempted to call report to 4th floor, receiving nurse Paz is with a aj1 patient and will call back. 16:18 Reassessment: Patient appears in no apparent distress at this time. No changes from aj1 previously documented assessment. Patient and/or family updated on plan of care and expected duration. Pain level reassessed. Patient is alert, oriented x 3, equal unlabored respirations, skin warm/dry/pink. Vital Signs: 12:30 BP 169 / 48; Pulse 51; Resp 16; Temp 97.2; Pulse Ox 98% on R/A; Weight 50.8 kg; Height hb 5 ft. 3 in. (160.02 cm); Pain 10/10; 13:30 BP 162 / 56; Pulse 50; Resp 18; Pulse Ox 98% on R/A; aj1 14:30 BP 178 / 64; Pulse 50; Resp 18; Pulse Ox 98% on R/A; aj1 15:30 BP 146 / 55; Pulse 51; Resp 18; Pulse Ox 100% on R/A; aj1 16:11 BP 134 / 62; Pulse 50; Resp 18; Pulse Ox 97% on R/A; aj1 12:30 Body Mass Index 19.84 (50.80 kg, 160.02 cm) hb ED Course: 12:26 Patient arrived in ED. mr 12:29 Triage completed. hb 12:30 Arm band placed on. hb 12:32 Ileana Navarrete, RN is Primary Nurse. aj1 12:32 Jamie Deng MD is Attending Physician. ps1 12:44 Patient has correct armband on for positive identification. bench inspector on. Pulse aj1 ox on. NIBP on. 12:44 No provider procedures requiring assistance completed. Patient maintains SpO2 aj1 saturation greater than 95% on room air. 13:01 Initial lab(s) drawn, by al, sent to lab. Inserted saline lock: 18 gauge in left bb antecubital area, using aseptic technique. Blood collected. 13:06 XRAY Chest (1 view) In Process Unspecified. EDMS 13:06 EKG done, by operating room surgical technician. reviewed by Jamie Deng MD. at1 14:27 Dale Reddy MD is Hospitalizing Provider. ps1 15:[address] via stretcher. nj 16:19 Primary Nurse role handed off by Ileana Navarrete, RN aj1 16:25 Ileana Navarrete, RN is Primary Nurse. aj1 16:26 Patient admitted, IV remains in place. aj1 Administered Medications: 14:21 Drug: TORadol 30 mg Route: IVP; Site: left antecubital; aj1 Outcome: 14:28 Decision to Hospitalize by Provider. ps1 16:19 Patient left the ED. aj1 16:27 Admitted to Tele accompanied by tech, via wheelchair, with chart, Report called to aj PHILLIP Mullen on 4th floor 16:27 Condition: stable 16:27 Discharge instructions given to patient, Instructed on the need for admit, Demonstrated understanding of instructions. 16:59 Patient left the ED. aj1 Signatures: Dispatcher [employer] EDMS Ileana Navarrete, PHILLIP FISHER aj Kathrin Billy Brenda, RN RN bb Gonzales, Amanda, baked and graphite inspector EKG Tat1 Seema Bruno RN RN hb Jordan, Jamie Godinez MD MD ps1
[2019-03-02] MEDS ORDERED: ACETAMINOPHEN 500 MG TAB PO PRN (15:08)
[2019-03-02] MEDS ORDERED: ONDANSETRON 4 MG/2 ML VIAL IV PRN (15:08)
[2019-03-02] MEDS ORDERED: ALBUTEROL 2.5 MG/3 ML NEB SOL NEB PRN (15:08)
--- NOTE | 2019-03-02 15:08 | EKG ---
Test Date: 2019-03-02 Test Time: 13:03:02 Laboratory Cureman: CHRISTINE MEASUREMENT RESULTS: Intervals: Rate: 50 WA: 196 QRSD: 90 QT: 478 QTc: 435 Clemons: P: 88 WA: 196 QRS: 60 T: 67 INTERPRETIVE STATEMENTS: Sinus bradycardia Otherwise normal ECG Compared to ECG 04/21/2018 00:14:35 ST (T wave) deviation no longer present Electronically Signed On 03-02-19 15:07:27 GASFITTER by Vishnu Huitron
--- NOTE | 2019-03-02 15:19 | P.HP ---
Certification for Inpatient Patient admitted to: Observation With expected LOS: <2 Midnights Patient will require the following post-hospital care: None Practitioner: I am a practitioner with admitting privileges, knowledge of patient current condition, hospital course, and medical plan of care. Services: Services provided to patient in accordance with Admission requirements found in Title 42 Section 412.3 of the Code of Federal Regulations Patient History Date of Service: 03/02/19 Reason for admission: CHEST PAIN History of Present Illness: 59-year-old female with past medical history of atrial fibrillation, Aortic Valve replacement, on chronic Coumadin therapy, chronic pain syndrome, depression, anxiety was brought to ER with chest pain which started yesterday. Patient states that this pain is retrosternal with radiation to the left not associated with any diaphoresis or shortness of breath. Patient denies any fever or chills No sick contacts No nausea vomiting or diarrhea She also complains of some dizziness which has been going on for the last 2 days. No syncope or presyncope episode Patient was assessed in the ER. Vitals were stable. Chest pain slightly better with medication. Patient is admitted for to rule out ACS Allergies morphine Allergy (Intermediate, Verified 04/05/18 04:34) panic ATTACK; shaking fentanyl Allergy (Verified 04/05/18 04:34) Itching Home medications list reviewed: Yes Home Medications: Zolpidem Tartrate [Ambien*] 10 mg PO BEDTIME 07/07/13 Pantoprazole [Protonix Tab*] 40 mg PO DAILYAC #30 tab 06/16/15 Aspirin Chewable [Aspirin Chewable*] 81 mg PO BEDTIME 04/30/17 Atorvastatin Calcium 40 mg PO BEDTIME 04/30/17 Sotalol HCl [Betapace*] 80 mg PO BID #60 tab 05/17/17 Warfarin Sodium [Coumadin*] 2.5 mg PO BEDTIME 04/05/18 Hydrocodone Bit/Acetaminophen [Hydrocodon-Acetaminoph 7.5-325] 1 pill PO TID PRN 03/02/19 Lidocaine 4% Patch [Lidoderm 5% Patch*] 1 patch TOP BEDTIME PRN 03/02/19 - Past Medical/Surgical History Diabetic: No Past Medical History: Reviewed- Non-Contributory -: chronic back pain -: depression -: gallstones -: kidney infection -: GERD -: mechanical aorta -: palpitations -: Atrial fibrillation Past Surgical History: Reviewed- Non-Contributory -: aortic valve replacement -: cardioversion -: tubal ligation - Family History Family History: Reviewed- Non-Contributory - Family History Brother -: Cancer Notes: heart attack Father -: Heart disease, Other (see notes) Notes: mother and siblings as well Mother -: Heart disease, Diabetes Notes: of heart attack Sister -: Heart disease, Diabetes, Cancer Notes: sisters x2 - DM. sister x1 - heart attack. sister- lung cancer - Social History Smoking Status: Never smoker Alcohol use: No CD- Drugs: No Caffeine use: Yes Review of Systems 10-point ROS is otherwise unremarkable General: Unremarkable ENT: Unremarkable Physical Examination - Vital Signs Temperature: 97.4 F Blood Pressure: 199/90 Pulse: 76 Respirations: 16 - Physical Exam General: Alert, In no apparent distress, Oriented x3 HEENT: Atraumatic, Normocephalic Neck: Supple Respiratory: Clear to auscultation bilaterally, Normal air movement Cardiovascular: No edema, Irregular heart rate/rhythm Capillary refill: <2 Seconds Gastrointestinal: Soft and benign, W/out hepatosplenomegaly Musculoskeletal: No clubbing, No swelling Integumentary: No rashes Neurological: Normal speech, Normal strength at 5/5 x4 extr Lymphatics: No axilla or inguinal lymphadenopathy Urinary: Other (NO BLADDER DISTENTION) External genitalia: Deferred Rectal: Deferred - Studies Laboratory Data (last 24 hrs) 03/02/19 12:55: PT 52.1 H, INR 4.69 H* 03/02/19 12:55: Sodium 143, Potassium 3.9, BUN 14, Creatinine 0.98, Glucose 83, Magnesium 2.1, Total Bilirubin 0.4, AST 25, ALT 27, Alkaline Phosphatase 99 03/02/19 12:55: WBC 5.1, Hgb 8.8 L, Hct 26.9 L, Plt Count 182 Assessment and Plan - Problems (Diagnosis) (1) Chest pain Onset Date: 06/15/15 Current Visit: No Status: Acute Plan: Chest pain to rule out ACS Will monitor under telemetry Trend cardiac enzymes Cardiology consult Continue home medications and titrate as needed Qualifiers: (2) Dizziness Current Visit: Yes Status: Acute Plan: Will get a CT of the head Monitor under telemetry (3) Hypercoagulable state Current Visit: Yes Status: Acute Plan: Will hold Coumadin for today Check INR in a.m. (4) Atrial fibrillation with rapid ventricular response Onset Date: 06/28/14 Current Visit: No Status: Chronic Plan: Patient is on sotalol Will monitor under telemetry Rate control at this time Will get an echocardiogram (5) H/O aortic valve repair Current Visit: No Status: Chronic Plan: Continue home medication Titrate Coumadin to inr (6) Headache Current Visit: No Status: Acute Plan: Will get a CT of the brain Pain control Monitor closely (7) Accelerated hypertension Current Visit: Yes Status: Acute Plan: Will titrate antihypertensives Hydralazine p.r.n. Discharge Plan: Home Plan to discharge in: 24 Hours - Advance Directives Does patient have a Living Will: No Does patient have a Durable POA for Healthcare: No Time Spent Managing Pts Care (In Minutes): 45
--- NOTE | 2019-03-02 15:43 | RAD REPORT ---
EXAM DESCRIPTION: CT - Head Brain Wo Cont - 03/02/2019 3:35 pm CLINICAL HISTORY: dizziness Headache, drowsiness COMPARISON: Head Brain Wo Cont dated 04/20/2018; Facial Bones W/ Mpr dated 02/10/2017; Head C Spine Mp r Wo Con dated 09/12/2017 TECHNIQUE: All CT scans are performed using dose optimization technique as appropriate and may inclu de automated exposure control or mA/KV adjustment according to patient size. FINDINGS: No intracranial hemorrhage, hydrocephalus or extra-axial fluid collection.No areas of brai n edema or evidence of midline shift. The paranasal sinuses and mastoids are clear. The calvarium is intact. IMPRESSION: No acute intracranial abnormality.
[2019-03-02] MEDS: MEPERIDINE HCL 25 MG/0.5 ML IV PRN ×2 (17:40→21:22)
[2019-03-02] MEDS ORDERED: HYDRALAZINE HCL 20 MG/ML VIAL IV PRN (18:37)
[2019-03-02 18:48] LABS: CKMB Creatine Kinase MB < 1.0 ng/mL (0.3-3.6); Creatine Phosphokinase 99 U/L (26-192); Troponin I < 0.02 ng/mL (0.0-0.045)
[2019-03-02] MEDS ORDERED: INFLUENZA VACCINE (for 3y+) 0.5 ML DOSE IMVAC ONE (19:00)
[2019-03-02] MEDS ORDERED: PNEUMOCOCCAL VACCINE 0.5 ML IMVAC ONE (19:00)
[2019-03-02] MEDS ORDERED: LIDOCAINE 4% PATCH TOP PRN (19:05)
[2019-03-02] MEDS: ALBUTEROL 2.5 MG/3 ML NEB SOL NEB SCH ×2 (20:10→23:50)
[2019-03-02] MEDS: IPRATROPIUM BROM 0.5MG/2.5ML NEB SCH ×2 (20:10→23:50)
[2019-03-02] MEDS ORDERED: ZOLPIDEM TARTRATE 5 MG TABLET PO SCH (21:00)
[2019-03-02] MEDS ORDERED: SOTALOL HCL 80 MG TAB PO SCH (21:00)
[2019-03-02] MEDS ORDERED: ATORVASTATIN 40 MG TAB PO SCH (21:00)
[2019-03-02] MEDS: HYDROCODONE/APAP 7.5/325 MG TAB PO PRN (22:40)
[2019-03-02 23:11] LABS: CKMB Creatine Kinase MB < 1.0 ng/mL (0.3-3.6); Creatine Phosphokinase 97 U/L (26-192)
[2019-03-03] MEDS: MEPERIDINE HCL 25 MG/0.5 ML IV PRN ×4 (00:56→14:32)
[2019-03-03] MEDS: IPRATROPIUM BROM 0.5MG/2.5ML NEB SCH ×2 (04:25→08:00)
[2019-03-03] MEDS: ALBUTEROL 2.5 MG/3 ML NEB SOL NEB SCH ×2 (04:25→08:00)
[2019-03-03 04:38] VITALS: BMI 19.8
[2019-03-03 05:15] LABS: Absolute Lymphocytes (CBC) 1.6 K/uL (0.7-4.9); Basophils % 1.1 % (0-1.3); Hematocrit 23.2 % (36.0-45.0); Lymphocytes % 38.4 % (15.3-44.8); MPV 9.8 fL (7.6-11.3); RBC Red Blood Cell Count 2.68 M/uL (3.86-4.86)
[2019-03-03 05:22] LABS: CKMB Creatine Kinase MB < 1.0 ng/mL (0.3-3.6); Creatine Phosphokinase 86 U/L (26-192); Protime INR 2.88
[2019-03-03 05:24] LABS: Albumin 3.3 g/dL (3.4-5.0); Bilirubin Total 0.4 mg/dL (0.2-1.0); Protein, Total 6.1 g/dL (6.4-8.2)
[2019-03-03] MEDS: HYDROCODONE/APAP 7.5/325 MG TAB PO PRN (06:03)
[2019-03-03] MEDS ORDERED: PANTOPRAZOLE 40MG TABLET PO SCH (06:30)
[2019-03-03] MEDS ORDERED: NA CHLORIDE 0.9% 250 ML ONE (07:35)
[2019-03-03] MEDS ORDERED: SOTALOL HCL 80 MG TAB PO SCH (08:10)
[2019-03-03 08:56] LABS: Urine Appearance SL CLOUDY; Urine Bacteria LOADED /HPF (<20); Urine Bilirubin NEGATIVE (NEG); Urine Blood 2+ (NEG); Urine Color YELLOW; Urine Culture Reflex Order REFLEXED; Urine Glucose NEGATIVE (NEG); Urine Protein NEGATIVE (NEG); Urine RBC <5 /HPF (NONE SEEN); Urine Urobilinogen 0.2 mg/dL (0.2-1.0); Urine pH 5.5 (5.0-7.0)
[2019-03-03] MEDS ORDERED: ASPIRIN 81 MG CHEWABLE TABLET PO SCH (09:00)
[2019-03-03] MEDS ORDERED: IPRATROPIUM BROM 0.5MG/2.5ML NEB PRN (09:13)
[2019-03-03 12:46] VITALS: TEMP 97.7
--- NOTE | 2019-03-03 15:01 | P.DS ---
Admission Date: 03/02/19 Discharge Date: 03/04/19 Disposition: ROUTINE DISCHARGE Discharge Condition: GOOD Reason for Admission: CHEST PAIN - Problems (1) Chest pain Onset Date: 06/15/15 Status: Acute Qualifiers: (2) Dizziness Status: Acute (3) Hypercoagulable state Status: Acute (4) Atrial fibrillation with rapid ventricular response Onset Date: 06/28/14 Status: Chronic (5) H/O aortic valve repair Status: Chronic (6) Headache Status: Acute (7) Accelerated hypertension Status: Acute Brief History of Present Illness: 59-year-old female with past medical history of atrial fibrillation, Aortic Valve replacement, on chronic Coumadin therapy, chronic pain syndrome, depression, anxiety was brought to ER with chest pain which started yesterday. Patient states that this pain is retrosternal with radiation to the left not associated with any diaphoresis or shortness of breath. Patient denies any fever or chills No sick contacts No nausea vomiting or diarrhea She also complains of some dizziness which has been going on for the last 2 days. No syncope or presyncope episode Patient was assessed in the ER. Vitals were stable. Chest pain slightly better with medication. Patient is admitted for to rule out ACS Hospital Course: Patient was admitted and was monitor under telemetry. Cardiac enzymes were trended and were within normal limits. Patient was found to have hypercoagulability with INR of more than 4.6. Coumadin was held for today and restarted on lower dose. She was found to have anemia for which 1 unit blood transfusion was given. Posttransfusion H&H was stable. Cardiology was consulted. Cardiology recommended outpatient follow up with conservative management . the dosage for sotalol was reduced as the patient had a bradycardic episodes and the patient was advised to follow up with PCP as early as possible for INR check. Patient verbalized understanding and wanted to go home and is being discharged home today in a stable condition with advice to follow up with PCP in 1 week and also with Cardiology in 1-2 weeks Vital Signs/Physical Exam: Temp Pulse Resp BP Pulse Ox 97.7 F 44 L 16 133/53 L 97 03/03/19 12:00 03/03/19 12:00 03/03/19 14:32 03/03/19 12:00 03/03/19 14:32 General: Alert, In no apparent distress HEENT: Atraumatic, Normocephalic Neck: 2+ carotid pulse no bruit Respiratory: Clear to auscultation bilaterally, Normal air movement Cardiovascular: Irregular heart rate/rhythm, Systolic murmur, Diastolic murmur Capillary refill: <2 Seconds Gastrointestinal: Soft and benign, W/out hepatosplenomegaly Laboratory Data at Discharge: WBC 4.2 K/uL (4.3-10.9) L D 03/03/19 04:48 Hgb 7.4 g/dL (12.0-15.0) L* 03/03/19 04:48 Hct 23.2 % (36.0-45.0) L 03/03/19 04:48 Plt Count 144 K/uL (152-406) L D 03/03/19 04:48 PT 32.6 SECONDS (9.5-12.5) H 03/03/19 04:48 INR 2.88 03/03/19 04:48 Sodium 142 mmol/L (136-145) 03/03/19 04:48 Potassium 4.0 mmol/L (3.5-5.1) 03/03/19 04:48 BUN 18 mg/dL (7-18) 03/03/19 04:48 Creatinine 0.94 mg/dL (0.55-1.3) 03/03/19 04:48 Glucose 78 mg/dL (74-106) 03/03/19 04:48 Magnesium 2.1 mg/dL (1.8-2.4) 03/02/19 12:55 Total Bilirubin 0.4 mg/dL (0.2-1.0) 03/03/19 04:48 AST 22 U/L (15-37) 03/03/19 04:48 ALT 22 U/L (12-78) 03/03/19 04:48 Alkaline Phosphatase 85 U/L (45-117) 03/03/19 04:48 Troponin I < 0.02 ng/mL (0.0-0.045) 03/02/19 22:45 Triglycerides 92 mg/dL (<150) 03/03/19 04:48 Cholesterol 126 mg/dL (<200) 03/03/19 04:48 HDL Cholesterol 60 mg/dL (40-60) 03/03/19 04:48 Cholesterol/HDL Ratio 2.10 03/03/19 04:48 Home Medications: Zolpidem Tartrate [Ambien*] 10 mg PO BEDTIME 07/07/13 Pantoprazole [Protonix Tab*] 40 mg PO DAILYAC #30 tab 06/16/15 Aspirin Chewable [Aspirin Chewable*] 81 mg PO BEDTIME 04/30/17 Atorvastatin Calcium 40 mg PO BEDTIME 04/30/17 Hydrocodone Bit/Acetaminophen [Hydrocodon-Acetaminoph 7.5-325] 1 pill PO TID PRN 03/02/19 Lidocaine 4% Patch [Lidoderm 5% Patch*] 1 patch TOP BEDTIME PRN 03/02/19 Iron Ag,Ps/C/Fa6/B12/Zn/SA/Sto [Niferex Tablet] 1 each PO DAILY #30 tablet 03/03 Sotalol HCl [Betapace*] 40 mg PO BID 6AM 6PM #30 tab 03/03/19 Warfarin Sodium [Coumadin] 2 mg PO DAILY #30 tablet 03/03/19 New Medications: Iron Ag,Ps/C/Fa6/B12/Zn/SA/Sto [Niferex Tablet] 1 each PO DAILY #30 tablet Sotalol HCl [Betapace*] 40 mg PO BID 6AM 6PM #30 tab Warfarin Sodium [Coumadin] 2 mg PO DAILY #30 tablet Diet: AHA Activity: Ad fransisco Followup: Soren Carter MD [ACTIVE - CAN ADMIT] - 1-2 Weeks (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
[2019-03-03 15:38] LABS: Hematocrit 26.8 % (36.0-45.0)
[2019-03-03] MEDS ORDERED: PNEUMOCOCCAL VACCINE 0.5 ML IMVAC ONE (16:00)
[2019-03-03] MEDS ORDERED: INFLUENZA VACCINE (for 3y+) 0.5 ML DOSE IMVAC ONE (16:00)
[2019-03-03 16:30] VITALS: O2SAT 98
[2019-03-03 16:55] VITALS: BP 144/63
--- NOTE | 2019-03-04 03:22 | CON ---
Date of Consultation: 03/03/[address] Reddy on 03/02/2019. I saw the patient on 03/03/2019. Reason For Consultation: Chest pain and dizziness. History Of Present Illness: Ms. Saavedra is a 63-year-old white woman. She is known to have a mechani tyrone aortic valve replacement, has a history of atrial fibrillation status post cardioversion on 2017. She is in sinus rhythm now. At that time she had a normal echocardiogram showing normal m echanical aortic valve. She has hypertension, dyslipidemia, gastroesophageal reflux disease. The time I saw her here she was supposed to get a Lexiscan by Dr. Dan, but she refused to do so and cal sheridan is still refusing to have a stress test now. Her main complaint is dizziness rather than chest vidhya n. Denied fevers, chills, cough, or trauma. Denies any nausea, vomiting, diaphoresis, PND, orthopne a, pedal edema, palpitations, or syncope. So far, her BNP is 1576. Her hemoglobin is 8.9. She was very hypertensive at 199/90. She was bradycardic in the 40s. Her INR was 4.69. Allergies: MORPHINE AND FENTANYL. Past Medical History: As stated above. Review of Systems: Negative. Social History: Negative. Family History: Negative. Medications: At home include aspirin, Coumadin, Lipitor, Protonix, and sotalol 80 mg b.i.d. Physical Examination: Vital Signs: Blood pressure was 199/90. She is in no acute distress. Heart rate was 40. HEENT: Negative. Neck: Supple with no bruit. Chest: Clear. Cardiac: Revealed a regular rhythm and rate with a sharp aortic valve crisp sound. No aortic regurg itation. Abdomen: Benign. Extremities: Revealed no clubbing, cyanosis, or edema. Diagnostic Studies: Her EKG was negative. CT of her head was negative. Chest x-ray was negative. Impression And Plan: 1.Dizziness and chest pain, most likely secondary to severe bradycardia. I will decrease her sotalo l to 40 mg b.i.d. 2.Hypertension, may resolve with her heart rate improving. She is anemic and receiving a blood schroeder sfusion that may help her pressure as well and may help her dizziness as well. 3.Elevated INR. Coumadin needs to be held for now. 4.Status post mechanical aortic valve. We will get another echocardiogram. 5.History of atrial fibrillation that has resolved after cardioversion since February of 2018. 6.Dyslipidemia. 7.Gastroesophageal reflux disease. I would like to state that at the time she had her mechanical va lve. She had no coronary artery disease. We will see what her heart rate does with the sotalol decr eased. We will see what her echocardiogram shows. We will watch her INR. We will watch her hemoglo bin. We will continue to follow her. PANCHITO/DANE Voice ID: [id number] Report ID: [id number]
--- NOTE | 2019-03-04 08:14 | ECHO ---
HEIGHT: 5 ft 3 in WEIGHT: 112 lb 0 oz DATE OF STUDY: 03/03/[address]: Pavel Reddy DO 2-DIMENSIONAL: YES M.MODE: YES DOPPLER: YES COLOR FLOW: YES TDS: NO PORTABLE: NO DEFINITY: NO BUBBLE STUDY: NO DIAGNOSIS: HISTORY OF AORTIC VALVE REPLACEMENT CARDIAC HISTORY: CATHERIZATION: YES SURGERY: YES PROSTHETIC VALVE: YES PACEMAKER: NO MEASUREMENTS (cm) DIASTOLIC (NORMALS) SYSTOLIC (NORMALS) IVSd 1.0 (0.6-1.2) LA Diam 3.6 (1.9-4.0) LVEF 65% LVIDd 3.9 (3.5-5.7) LVIDs 2.5 (2.0-3.5) %FS 35% LVPWd 1.0 (0.6-1.2) Ao Diam 2.4 (2.0-3.7) 2 DIMENSIONAL ASSESSMENT: RIGHT ATRIUM: NORMAL LEFT ATRIUM: NORMAL RIGHT VENTRICLE: NORMAL LEFT VENTRICLE: NORMAL TRICUSPID VALVE: NORMAL MITRAL VALVE: NORMAL PULMONIC VALVE: NORMAL AORTIC VALVE: STATUS POST AVR PERICARDIAL EFFUSION: NONE AORTIC ROOT: NORMAL LEFT VENTRICULAR WALL MOTION: DOPPLER/COLOR FLOW: MILD TO MODERATE MITRAL REGURGITATION. MODERATE AORTIC STENOSIS 1.2 CENTIMETERS. STATUS POST MECHANICAL AORTIC VALVE REPLACEMENT. COMMENTS: MODERATE AORTIC STENOSIS OF MECHANICAL AORTIC VALVE, 1.2 CENTIMETERS. MILD TO MODERATE MITRAL REGURGITATION. NORMAL LEFT VENTRICULAR EJECTION FRACTION. NO WALL MOTION ABNORMALITY. NO EFFUSION. TECHNOLOGIST: Guido JAIN
== END 2019-03-03 16:50 | disposition home or self-care (01) ==
LOC: ER 12:23 → ERHOLD 15:09 → 4TH 16:30
PROVIDERS: ADMIT Family Medicine; ATTEND Family Medicine
DX: I48.20 Chronic atrial fibrillation, unspecified (principal); R00.1 Bradycardia, unspecified; K21.9 Gastro-esophageal reflux disease without esophagitis; I10 Essential (primary) hypertension; R42 Dizziness and giddiness; R51 Headache; F41.8 Other specified anxiety disorders; Z95.4 Presence of other heart-valve replacement; Z79.01 Long term (current) use of anticoagulants
CPT/HCPCS: 36430; 93005; 93306; 87088; 85025 ×2; 81001; 87086; 36415; 86900; 83735; 86850; 82550 ×3; 85610 ×2; 80061; 86901; 87077; 87186; 85018; 85014; 84484 ×3; 82553 ×3; 80053 ×2; 83880; 70450; 71045; 90471; 94760 ×2; 96374; 99285; Q2035; J2175 ×6; G0378 ×3; P9016; J7030

== ENCOUNTER 2019-11-08 23:09 | Observation (INO) | payer OTHER ==
--- OUTSIDE RECORDS SUMMARY | 2019-11-08 23:11 | XMS REPORT | Continuity of Care Document ---
:1955 Author Organization [facility] t Address [address] [place] [address] Care Team Providers Name Role Phone Radiology Attending Clinician Unavailable Doctor Unassigned, Name Attending Clinician Unavailable Pob, Lab Main Attending Clinician Unavailable Sy LOVELL Attending Clinician 1, Lab Attending Clinician Unavailable Problems This patient has no known problems. Allergies, Adverse Reactions, Alerts This patient has no known allergies or adverse reactions. Medications This patient has no known medications. Procedures This patient has no known procedures. 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 Andre Osei [facility] [id number] 09:34:52 09:49:52 Visit Lab Main Yehuda [id number] [place] [id number] [place] [phone] [address] 2019-10-20 2019-10-20 Orders Doctor JOHANN [id number] 00:00:00 00:00:00 Only Unassigned, MIKE [id number] [place] [facility] [id number] [id number] 2019-10-20 2019-10-20 Telephone [facility], [facility] [id number] 00:00:00 00:00:00 Qiamerjun [place] [id number] [place] [id number] [place] [phone] [address] 2019-09-30 2019-09-30 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 Farnaz, [facility] [id number] 08:27:19 08:42:19 Visit Lab Main [place] [id number] [place] [id number] [place] [phone] [address] 2019-09-30 2019-09-30 Telephone [facility], [facility] [id number] 00:00:00 00:00:00 Catrinangjun [place] [id number] [place] [id number] Profess[place] [phone] [address] 2019-09-08 2019-09-08 Telemedici [facility], [facility] [id number] 08:02:58 08:17:58 ne Visit Catrinamerzaheer [place] [id number] [place] [id number] [place] [phone] [address] 2019-09-03 2019-09-03 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 Farnaz, [facility] [id number] 08:53:22 09:08:22 Visit Lab Main [place] [id number] [place] [id number] [place] [phone] [address] 2019-09-03 2019-09-03 Telephone [facility], [facility] [id number] 00:00:00 00:00:00 Qiangjun [place] [id number] [place] [id number] [place] [phone] [address] 2019-09-02 2019-09-02 Telephone Sy, [facility] [id number] 00:00:00 00:00:00 Catrinamerzaheer [place] [id number] [place] [id number] [place] [phone] [address] 2019-09-02 2019-09-02 Telephone Sy, [facility] [id number] 00:00:00 00:00:00 Qiamerzaheer [place] [id number] [place] [id number] [place] [phone] [address] 2019-08-26 2019-08-26 Refill Sy, [facility] [id number] 00:00:00 00:00:00 [place] [id number] [place] [id number] [place] [phone] [address] 2019-07-31 2019-07-31 Refill Sy, [facility] [id number] 00:00:00 00:00:00 [place] [id number] [place] [id number] [place] [phone] [address] 2019-07-24 2019-07-24 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 1, Adc Lab [facility] [id number] 11:42:42 11:57:42 Visit [place] [id number] [place] [id number] [place] [phone] [facility] 2019-07-24 2019-07-24 Telephone Sy, [facility] [id number] 00:00:00 00:00:00 [facility] [id number] [place] [id number] [place] [phone] [address] 2019-06-30 2019-06-30 Refill Sy, [facility] [id number] 00:00:00 00:00:00 [place] [id number] [place] [id number] Profess[place] [phone] [facility] [address] 2019-04-27 2019-04-27 Telephone Sy MDKALEIGH [id number] 00:00:00 00:00:00 Catrinamerzaheer [place] [id number] [place] [id number] [facility] [phone] [facility]9 [facility] Results This patient has no known results.
--- OUTSIDE RECORDS SUMMARY | 2019-11-08 23:12 | XMS REPORT | Summary of Care ---
:1955 Author Organization [facility] Address [address] [place] [address] Care Team Providers Name Role Phone Ricci Contreras Primary Care Provider Nurse, Anticoag Unavailable Unavailable Reason for Visit Reason Comments LAB WORK Auth/Cert Status Reason Specialty Diagnoses / Procedures Referred By Ricci ontact Referred To Contact Phlebotomy Diagnoses PAF (paroxysmal atrial fibrillation) Adc Pob Lab Draw Procedures PT/INR Professional Office Building [address] [place] [address] , [address] [place] [address] Phone: Fax: Encounter Details Date Type Department Care Team Description 09/03/2019 Local Superintendent Visit [facility] Jamaica Dan MD [address] [facility] [facility] [place] [address] Paroxysmal atrial Professional Office Pob, Adc Lab Main fibrillation Building Phlebotomy Lab [facility] Building [address] [place] [address] , [address] [place] [address] Allergies Active Allergy Reactions Severity Noted Date Comments Morphine Shortness of Breath High 04/29/2006 documented as of this encounter (statuses as of 09/03/2019) Medications Medication Sig Dispensed Refills Start Date [...] by mouth 0 08/03/2016 Active capsule daily. HYDROcodone-acetaminophe 0 08/03/2016 Active n 10-325 mg tablet lidocaine 5 % (700 0 08/03/2016 Active mg/patch) patch warfarin 1 mg tablet 2 mg 6 days/week 45 tablet 1 07/27/2019 Active and 1 mg 1 day/week atorvastatin 40 mg Take 1 tablet by 90 tablet 1 07/31/2019 Active tabletIndications: Mixed mouth at hyperlipidemia bedtime. sotalol 80 mg tablet Take 1 tablet by 60 tablet 5 07/31/2019 Active mouth 2 (two) times daily. documented as of this encounter (statuses as of 09/03/2019) Active Problems Problem Noted Date Mixed hyperlipidemia 12/02/2017 Essential hypertension 12/02/2017 Anticoagulated 12/02/2017 Coronary artery disease involving [place] coronary [place] heart 12/02/2017 without angina pectoris Coronary artery disease involving [place] heart without angina pectoris, 06/04/2017 unspecified vessel or lesion type Atrial flutter 07/16/2016 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] 02/10/2016 Chest pain with high risk for cardiac etiology 016 documented as of this encounter (statuses as of 09/03/2019) Social History Tobacco Use Types Packs/Day Years [...] Treatment Date Type Specialty Care Team Description 09/08/2019 Telemedicine Visit Cardiology [place] Dan MD [address] [place] [address] 15 [phone] Health Maintenance Due Date Last Done Comments HEPATITIS C (HCV) SCREEN 1955 DTaP,Tdap,and Td Vaccines (1 - Tdap) 1964 Breast Cancer Screening (MAMMOGRAM) 1993 COLONOSCOPY 2003 Zoster Recombinant Vaccine (SHINGRIX) (1 of 2) 2003 Medicare Wellness Visit 2018 Osteoporosis Screening 2018 PNEUMOCOCCAL VACCINES 65+ (1 of 2 - PCV13) 2018 INFLUENZA VACCINE (Season Ended) 2019 documented as of this encounter Procedures Procedure Name Priority Date/Time Associated Diagnosis Comme nts PROTHROMBIN TIME / Routine 09/03/2019 9:09 Paroxysmal atrial Results for this INR AM CDT fibrillation procedure are i n the results section. documented in this encounter Results PROTHROMBIN TIME / INR (09/03/2019 9:09 AM CDT) PROTIME PATIENT 28.9 (H) 12.0 - 14.7 [facility] LABORATORY INR 2.9Comment: Normal [facility] INR <1.1; Warfarin [facility] Therapeutic range LABORATORY 2.0 to 3.0 or 2.5 to 3.5, depending upon the indications. Specimen Blood Performing Organization Address City/State/Zipcode Phone Number [facility] CLIA: [id number], [address] [place], [place] [address] documented in this encounter Visit Diagnoses Diagnosis Paroxysmal atrial fibrillation Atrial fibrillation documented in this encounter Insurance Payer Benefit Plan / Subscriber ID Effective Phone Address T e Group [facility] [id number] 2018-Prese Medic are Adv HEALTHCARE - HEALTHCARE DUAL [place] MANA[place]ED COMPLETE HMO MEDICARE [place] xxxxxxxxx 2013-Prese Medicaid HEALTHCARE COMM PLUS nt PLAN - MANAGED MEDICAID documented as of this encounter
--- OUTSIDE RECORDS SUMMARY | 2019-11-08 23:12 | XMS REPORT | Summary of Care ---
:1955 Author Organization [facility] - [facility] Address [address] [place] [address] Care Team Providers Name Role Phone Ricci Contreras Primary Care Provider Nurse, Anticoag Unavailable Unavailable Reason for Visit Reason Comments Assessment Encounter Details Date Type Department Care Team Description 09/02/2019 Telephone [facility] Cardiology- Catrina Dan MD Assessment [address] [facility], [address] [place] [address] [place] [address] [phone] Allergies Active Allergy Reactions Severity Noted Date Comments Morphine Shortness of Breath High 04/29/2006 documented as of this encounter (statuses as of 09/03/2019) Medications Medication Sig Dispensed Refills Start Date End Date Status NITROGLYCERIN 0.4 MG 1 Tab SL 30 0 04/30/2006 Active SL SUBL Q5MIN PRN aspirin 81 mg Take 1 30 tablet 3 02/08/2016 Activ e chewable tablet tablet by mouth daily. ferrous sulfate 325 Take 1 90 tablet 3 02/08/2016 Active mg (65 mg iron) tablet by tablet mouth 3 (three) times daily with meals. pantoprazole 40 mg 0 07/27/2016 Active EC tablet zolpidem 10 mg 0 08/03/2016 Acti ve tablet gabapentin 300 mg Take by 0 08/03/2016 A ctive capsule mouth daily. HYDROcodone-acetamin 0 08/03/2016 Active ophen 10-325 mg tablet lidocaine 5 % (700 0 08/03/2016 Active mg/patch) patch atorvastatin 40 mg Take 1 90 tablet 1 07/31/2019 Active tabletIndications: tablet by Mixed hyperlipidemia mouth at bedtime. sotalol 80 mg tablet Take 1 60 tablet 5 07/31/2019 Active tablet by mouth 2 (two) times daily. warfarin 1 mg tablet 2 mg 6 45 tablet 0 09/03/2019 Active days/week and 1 mg 1 day/week warfarin 1 mg tablet 2 mg 6 45 tablet 1 07/27/2019 09/03/19 2 Discontinued days/week 0 (Reorder) and 1 mg 1 day/week documented as of this encounter (statuses as of 09/03/2019) Active Problems Problem Noted Date Mixed hyperlipidemia 12/02/2017 Essential hypertension 12/02/2017 Anticoagulated 12/02/2017 Coronary artery disease involving [place] coronary delgado ry of [place] heart 12/02/2017 without angina pectoris Coronary artery disease involving [place] heart without angina pectoris, 06/04/2017 unspecified vessel [...] 09/08/2019 Telemedicine Visit Cardiology Jamaica Dan MD [address] [place] [address] [place] [address] [phone] Health Maintenance Due Date Last Done Comments HEPATITIS C (HCV) SCREEN 1955 DTaP,Tdap,and Td Vaccines (1 - Tdap) 1964 Breast Cancer Screening (MAMMOGRAM) 1993 COLONOSCOPY 2003 Zoster Recombinant Vaccine (SHINGRIX) (1 of 2) 2003 Medicare Wellness Visit 2018 Osteoporosis Screening 2018 PNEUMOCOCCAL VACCINES 65+ (1 of 2 - PCV13) 2018 INFLUENZA VACCINE (Season Ended) 2019 documented as of this encounter Results Not on filedocumented in this encounter Insurance Payer Benefit Plan / Subscriber ID Effective Phone Address T e [facility] [id number] 2018-Prese Medic are Adv HEALTHCARE - HEALTHCARE DUAL nt H MO MANAGED COMPLETE O MEDICARE [place] [place] xxxxxxxxx 2013-Prese Medicaid HEALTHCARE COMM PLUS nt PLAN - MANAGED MEDICAID documented as of this encounter
--- OUTSIDE RECORDS SUMMARY | 2019-11-08 23:12 | XMS REPORT | Summary of Care ---
:1955 Author Organization [facility] - [facility] Address [address] [place] [address] Care Team Providers Name Role Phone Ricci Contreras Primary Care Provider Nurse, Anticoag Unavailable Unavailable Reason for Visit Reason Comments Refill Request Encounter Details Date Type Department Care Team Description 08/26/2019 Refill [facility] Cardiology- Catrina Dan MD Refill Request [place] [address] [facility] 146 [facility], [address] [place] [address] [place] [address] [phone] Allergies Active Allergy Reactions Severity Noted Date Comments Morphine Shortness of Breath High 04/29/2006 documented as of this encounter (statuses as of 09/02/2019) Medications Medication Sig Dispensed Refills Start Date [...] as of this encounter (statuses as of 09/02/2019) Active Problems Problem Noted Date Mixed hyperlipidemia 12/02/2017 Essential hypertension 12/02/2017 Anticoagulated 12/02/2017 Coronary artery disease involving [place] coronary delgado ry of [place] heart 12/02/2017 without angina pectoris Coronary artery disease involving [place] heart without angina pectoris, 06/04/2017 unspecified vessel or lesion type Atrial flutter 07/16/2016 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 [place] STAR xxxxxxxxx 2013-Pres Saad schwarz HEALTHCARE PLUS ent COMM PLAN - MANAGED MEDICAID [place] MED[place] xxxxxxxxx 2019-Pres [phone] P O MATT miller [place] ent [id number] [place] [address] documented as of this encounter
--- OUTSIDE RECORDS SUMMARY | 2019-11-08 23:12 | XMS REPORT | Summary of Care ---
:1955 Author Organization [facility] - [facility] Address [address] [place] [address] Care Team Providers Name Role Phone Ricci Contreras Primary Care Provider Nurse, Anticoag Unavailable Unavailable Reason for Visit Reason Comments Orders INR Encounter Details Date Type Department Care Team Description 09/02/2019 Telephone [facility] Cardiology- Catrina Dan MD Orders (INR) [address] [facility], [address] [place] [address] [place] [address] [phone] Allergies Active Allergy Reactions Severity Noted Date [...] 12/02/2017 Anticoagulated 12/02/2017 Coronary artery disease involving [place] coronary delgado ry of [place] heart 12/02/2017 without angina pectoris Coronary artery disease involving [place] heart without angina pectoris, 06/04/2017 unspecified vessel [...] filedocumented in this encounter Plan of Treatment Name Type Priority Associated Diagnoses Order S chedule PROTHROMBIN TIME / INR LAB Routine PAF (paroxysmal at rial Expected: 09/02/2019, fibrillation) Expires: 09/01 Health Maintenance Due Date Last Done Comments [...] Visit Diagnoses Diagnosis PAF (paroxysmal atrial fibrillation) - P rimary Atrial fibrillation documented in this encounter Insurance Payer Benefit Plan / Subscriber ID Effective Phone Address T ype Group Dates [facility] [id number] 2018-Pres Medica re HEALTHCARE - HEALTHCARE ent Adv HM O MANAGED DUAL COMPLETE MEDICARE [facility] STAR xxxxxxxxx 2013-Pres M edicaid HEALTHCARE PLUS ent COMM PLAN - MANAGED MEDICAID [facility] MEDICAID OF xxxxxxxxx 2019-Pres [phone] [address] [facility] ent [id number] [place] [address] documented as of this encounter
--- OUTSIDE RECORDS SUMMARY | 2019-11-08 23:13 | XMS REPORT | Summary of Care ---
:1955 Author Organization [facility] - [facility] Address [address] [place] [address] Care Team Providers Name Role Phone Nurse, Anticoag Unavailable Unavailable Ceasar Dobson Primary Care Provider Encounter Details Date Type Department Care Team Description 10/20/2019 Orders Only [facility] Doctor Unassigned, [address] [facility] [place] [address] [address] [place] [address] Allergies Active Allergy Reactions Severity Noted Date Comments Morphine Shortness of Breath High 04/29/2006 documented as of this encounter (statuses as of 10/20/2019) Medications Medication Sig Dispensed Refills Start Date [...] 07/31/2019 Active mouth 2 (two) times daily. warfarin 2 mg Take 1 tablet by 30 tablet 1 10/05/2019 Active tabletIndications: mouth every Atrial flutter, evening. 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 COVID-19 Exposure Response Date Recorded In the last month, have you been in contact with No / Unsure 10/19/2019 11:46 AM CDT someone who 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 documented as of this encounter Last Filed Vital Signs Not on filedocumented in this encounter Plan of Treatment Date Type Specialty Care Team Description 10/30/2019 Appointment Radiology Radiology [address] [place] [address] Health Maintenance Due Date Last Done Comments HEPATITIS C (HCV) SCREEN 1955 DTaP,Tdap,and Td Vaccines (1 - Tdap) 1964 Depression Screening 1965 Breast Cancer Screening (MAMMOGRAM) 1993 COLONOSCOPY 2003 Zoster Recombinant Vaccine (SHINGRIX) (1 of 2) 2003 Medicare Wellness Visit 2018 Osteoporosis Screening 2018 PNEUMOCOCCAL VACCINES 65+ (1 of 2 - PCV13) 2018 INFLUENZA VACCINE (#1) 2019 documented as of this encounter Procedures Procedure Name Priority Date/Time Associated Diagnosis Comme nts ASSIGNMENT OF BENEFITS Routine 10/20/2019 9:35 AM CDT documented in this encounter Results Not on filedocumented in this encounter Insurance Payer Benefit Plan / Subscriber ID Effective Phone Address T [facility] [id number] 2018-Suman Medic are Adv HEALTHCARE - HEALTHCARE DUAL nt H MO MANAGED COMPLETE O MEDICARE [place] xxxxxxxxx 2013-Prese Medicaid HEALTHCARE COMM PLUS nt PLAN - MANAGED MEDICAID documented as of this encounter
--- OUTSIDE RECORDS SUMMARY | 2019-11-08 23:13 | XMS REPORT | Summary of Care ---
:1955 Author Organization [facility] Address [address] [place] [address] Care Team Providers Name Role Phone Nurse, Anticoag Unavailable Unavailable Dobson, E Primary Care Provider Reason for Visit Reason Comments Anticoagulation Encounter Details Date Type Department Care Team Description 09/30/2019 Telephone [facility] Cardiology- Catrina Dan MD Anticoagulation [place] 146 [facility] 146 [facility], [address] [place] [address] [place] [address] [phone] Allergies Active Allergy Reactions Severity Noted Date Comments Morphine Shortness of Breath High 04/29/2006 documented as of this encounter (statuses as of 10/05/2019) Medications Medication Sig Dispensed Refills Start Date [...] 08/03/2016 Active gabapentin 300 mg Take by 0 08/03/2016 A ctive capsule mouth daily. HYDROcodone-acetamino 0 08/03/2016 Active phen 10-325 mg tablet lidocaine 5 % (700 0 08/03/2016 Active mg/patch) patch atorvastatin 40 mg Take 1 90 tablet 1 07/31/2019 Active tabletIndications: tablet by Mixed hyperlipidemia mouth at bedtime. sotalol 80 mg tablet Take 1 60 tablet 5 07/31/2019 Active tablet by mouth 2 (two) times daily. warfarin 2 mg Take 1 30 tablet 1 10/05/2019 Activ e tabletIndications: tablet by Atrial flutter, mouth every unspecified type evening. 2 mg 6 days/week and 1 mg 1 day/week warfarin 1 mg 2 mg 6 60 tablet 1 09/08/2019 10/05/2019 Disc ontinued tabletIndications: days/week Atrial flutter, and 1 mg 1 unspecified type day/week documented as of this encounter (statuses as of 10/05/2019) Active Problems Problem Noted Date Mixed hyperlipidemia 12/02/2017 Essential hypertension 12/02/2017 Anticoagulated 12/02/2017 Coronary artery disease involving [place] coronary delgado ry of [place] heart 12/02/2017 without angina pectoris Coronary artery disease involving [place] heart without angina pectoris, 06/04/2017 unspecified vessel or lesion type Atrial flutter 07/16/2016 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] 02/10/2016 Chest pain with high risk for cardiac etiology 016 documented as of this encounter (statuses as of 10/05/2019) Social History Tobacco Use Types Packs/Day Years [...] filedocumented in this encounter Visit Diagnoses Diagnosis Atrial flutter, unspecified type documented in this encounter Insurance Payer Benefit Plan / Subscriber ID Effective Phone Address T e [facility] [id number] 2018-Suman Medic are Adv HEALTHCARE - HEALTHCARE DUAL nt H MO MANAGED COMPLETE HMO MEDICARE [employer] [place] xxxxxxxxx 2013-[place] Medicaid HEALTHCARE COMM PLUS nt PLAN - MANAGED MEDICAID documented as of this encounter
--- OUTSIDE RECORDS SUMMARY | 2019-11-08 23:13 | XMS REPORT | Summary of Care ---
:1955 Author Organization [facility] - [facility] Address [address] [place] [address] Care Team Providers Name Role Phone Ricci Contreras Primary Care Provider Nurse, Alex Unavailable Unavailable Reason for Visit Reason Comments Follow-up Encounter Details Date Type Department Care Team Description 09/08/2019 Telemedicine Visit [facility] Sy, [place], Atrial flutter, unspecified type (Primary Dx); Cardiology- MD Mixed hyperlipidemia; [place] [address] Essential hypertension; [address] [facility] Coronary artery disease involving [place] coronary artery of [place] heart without angina pectoris; [facility], [address] 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]; [place], [place] Anticoagulated [id number] [phone] Allergies Active Allergy Reactions Severity Noted Date Comments Morphine Shortness of Breath High 04/29/2006 documented as of this encounter (statuses as of 09/08/2019) Medications Medication Sig Dispensed Refills Start Date [...] 2 (two) times daily. warfarin 1 mg 2 mg 6 60 tablet 1 09/08/2019 Activ e tabletIndications: days/week Atrial flutter, and 1 mg 1 unspecified type day/week warfarin 1 mg tablet 2 mg 6 45 tablet 0 09/03/2019 09/08/19 2 Discontinued days/week 0 (Reorder) and 1 mg 1 day/week documented as of this encounter (statuses as of 09/08/2019) Active Problems Problem Noted Date Mixed hyperlipidemia 12/02/2017 Essential hypertension 12/02/2017 Anticoagulated 12/02/2017 Coronary artery disease involving [place] coronary delgado ry of [place] heart 12/02/2017 without angina pectoris Coronary artery disease involving [place] heart without angina pectoris, 06/04/2017 unspecified vessel or lesion type Atrial flutter 07/16/2016 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] 02/10/2016 Chest pain with high risk for cardiac etiology 016 documented as of this encounter (statuses as of 09/08/2019) Social History Tobacco Use Types Packs/Day Years Used Date Never Smoker Smokeless Tobacco: Never Used Sex Assigned at Date Recorded Not on file Job Start Date Occupation Industry Not on file Not on file Not on file Travel History Travel Start Travel End No recent travel history available. documented as of this encounter Last Filed Vital Signs Not on filedocumented in this encounter Progress Notes [place] Dan MD - 09/08/2019 3:20 PM CDT CARDIOLOGY CLINIC NOTE 09/08/2019 Reason for Referral/Presenting Complaint: Atrial Flutter, CAD, HTN, HLD and AVR History of Present Illness: Michelle Saavedra is a 64 years old female with PMH of HTN, HLD, mechanical AVR, descending thoracic aorta aneurysm, atrial flutter and CAD presenting to clinic for follow up. She underwent mechanical AVR in 1989 in [facility] for possible AR. On warfarin with INR goal 2.5-3.5. On ASA as well. No bleeding. Atrial flutter s/p DCC x 3. First time in 2011 in [facility]. 2nd time in 07/2016 in [place]. Most recent one in 04/[address] [facility]. Currently she is on sotalol. On 04/20/2018 she went to [facility] ER for palpitations and racing heart. EKG showed 2:1 Aflutter. She also had chest pain, weakness, and dizziness lasting for hours. Since last visit, no major palpitations. Stable weight. BP is normal. No bleeding. Past Medical History: Past Medical History: Diagnosis Date Aortic valve replaced 1989 CAD (coronary artery disease) Hyperlipidemia Hypertension Family History: Family History Problem Relation Age of Onset Diabetes Unknown T2DM, multiple family members Diabetes Mother Diabetes Sister Current Medication: Current Outpatient Medications Medication Sig Dispense Refill warfarin 1 mg tablet 2 mg 6 days/week and 1 mg 1 day/week 60 tablet 1 atorvastatin 40 mg tablet Take 1 tablet by mouth at bedtime. 90 tablet 1 sotalol 80 mg tablet Take 1 tablet by mouth 2 (two) times daily. 60 tablet 5 gabapentin 300 mg capsule Take by mouth daily. HYDROcodone-acetaminophen 10-325 mg tablet lidocaine 5 % (700 mg/patch) patch pantoprazole 40 mg EC tablet zolpidem 10 mg tablet aspirin 81 mg chewable tablet Take 1 tablet by mouth daily. 30 tablet 3 ferrous sulfate 325 mg (65 mg iron) tablet Take 1 tablet by mouth 3 (three) times daily with meals. 90 tablet 3 NITROGLYCERIN 0.4 MG SL SUBL 1 Tab SL Q5MIN PRN 30 0 No current facility-administered medications for this visit. Allergies: Allergies Allergen Reactions Morphine Shortness of Breath Social History: Social History Socioeconomic History Marital status: Spouse name: Not on file Number of children: Not on file Years of education: Not on file Highest education level: Not on file Occupational History Not on file Social Needs Financial resource strain: Not on file Food insecurity: Worry: Not on file Inability: Not on file Transportation needs: Medical: Not on file Non-medical: Not on file Tobacco Use Smoking status: Never Smoker Smokeless tobacco: Never Used Substance and Sexual Activity Alcohol use: Not on file Drug use: Not on file Sexual activity: Not on file Lifestyle Physical activity: Days per week: Not on file Minutes per session: Not on file Stress: Not on file Relationships Social connections: Talks on phone: Not on file Gets together: Not on file Attends jehovah's witness service: Not on file Active member of club or organization: Not on file Attends meetings of clubs or organizations: Not on file Relationship status: Not on file Intimate partner violence: Fear of current or ex partner: Not on file Emotionally abused: Not on file Physically abused: Not on file Forced sexual activity: Not on file Other Topics Concern Not on file Social History Narrative Not on file Review of Systems: (-)=Negative,(+)=Positive General: negative Skin: negative HEENT: negative Neck: negative Heme: negative Resp: negative Cardio: negative GI: Abdominal pain. : negative Endo: negative Neuro: negative Back: negative GEN: negative Psych: negative Physical Examination: Constitutional: Alert and in no distress Respiratory: Breathing comfortably Neurology: Answers questions appropriately EKG: NSR, non-specific ST-T changes, HR 63 04/25/2018--Sinus bradycardia, HR 51 bpm 01/05/2019--Sinus bradycardia, HR 48 bpm LABS / DATA: CBC WBC x10^3 (/CMM) Date Value 12/14/2010 6.5 WBC (10*3/L) Date Value 07/18/2016 5.91 RBC x10^6 (/CMM) Date Value 12/14/2010 3.99 RBC (10*6/L) Date Value 07/18/2016 3.48 (L) PLT x10^3 (/CMM) Date Value 12/14/2010 238 PLT (10*3/L) Date Value 07/18/2016 250 HGB Date Value 07/18/2016 9.1 g/dL (L) 12/14/2010 11.9 G/DL HCT (%) Date Value 07/18/2016 30.5 (L) 12/14/2010 38.0 BMP NA Date Value 07/18/2016 140 mmol/L 12/14/2010 141 MMOL/L K Date Value 07/18/2016 4.1 mmol/L 12/14/2010 4.7 MMOL/L CALCIUM Date Value 07/18/2016 9.4 mg/dL 12/14/2010 9.3 MG/DL CL Date Value 07/18/2016 103 mmol/L 12/14/2010 102 MMOL/L BUN Date Value 07/18/2016 12 mg/dL 12/14/2010 15 MG/DL CREATININE Date Value 07/18/2016 0.97 mg/dL 12/14/2010 1.00 MG/DL GLUCOSE Date Value 07/18/2016 85 mg/dL 12/14/2010 90 MG/DL CO2 TOTAL Date Value 07/18/2016 27 mmol/L 12/14/2010 29 MMOL/L Hepatic Function Panel ALBUMIN Date Value 03/12/2016 4.0 g/dL 12/11/2010 4.5 G/DL T PROTEIN Date Value 03/12/2016 7.0 g/dL 12/11/2010 8.4 G/DL (H) TOTAL BILI Date Value 03/12/2016 0.4 mg/dL 12/11/2010 0.8 MG/DL BILI UNCON Date Value 03/12/2016 0.1 mg/dL 12/11/2010 0.6 MG/DL BILI CONJ Date Value 03/12/2016 0.0 mg/dL 12/11/2010 0.0 MG/DL ALT(SGPT) (U/L) Date Value 03/12/2016 24 12/11/2010 19 AST(SGOT) (U/L) Date Value 03/12/2016 24 12/11/2010 26 ALK PHOS (U/L) Date Value 03/12/2016 79 12/11/2010 118 Lipid Panel: CHOL Date Value 10/29/2018 146 mg/dL 12/11/2010 272 MG/DL (H) LDL CHOL Date Value 10/29/2018 55 mg/dL 12/11/2010 192 MG/DL (H) HDL CHOL (MG/DL) Date Value 12/11/2010 61 HDL (mg/dL) Date Value 10/29/2018 62 TRIG Date Value 10/29/2018 144 mg/dL 12/11/2010 96 MG/DL Thyroid Panel : TSH Date Value 07/16/2016 1.51 mIU/L 12/11/2010 1.92 uIU/mL No results found for: T4 No results found for: T3 Chest X-Ray: COMPARISON: CR chest 12/11/2010 FINDINGS: The lungs are clear. Mild pleural thickening is noted within the lung apices. No radiographic evidence of pneumothorax, focal consolidation or pleural effusion. The heart size is normal. Atherosclerotic calcifications of the aortic arch are present. Median sternotomy changes are present. No acute osseous abnormality is identified. Moderate degenerative changes of the thoracic spine are present. Echocardiogram: MARGA 07/18/16 Left Ventricle The left ventricular ejection fraction is normal. Right Ventricle A small soft tissue density is seen in the RV, most likely part of the moderator band. The right ventricular systolic function is normal. Atria The interatrial septum is intact with no evidence for an atrial septal defect. The left atrium is enlarged. No thrombus is detected in the left atrial appendage. The right atrium is normal. Mitral Valve The mitral valve leaflets appear normal. There is no evidence of stenosis, fluttering, or prolapse. There is mild mitral regurgitation. Tricuspid Valve The tricuspid valve is normal. There is trivial tricuspid regurgitation. Aortic Valve The mean aortic valve gradient measures 8.2 mmHg. The peak to peak aortic valve gradient measures 17.7 mmHg. There is trivial aortic insufficiency. There is a mechanical prosthesis in the aortic position. The prosthetic aortic valve is not well visualized. The prosthetic aortic valve is well-seated. The gradient is normal for this prosthetic aortic valve. Pulmonic Valve The pulmonic valve is normal. Vessels Mild atherosclerotic plaque(s) in the ascending aorta. Pericardium The pericardium is normal. Therer is no pericardial effusion. Interpretation Summary A complete transesophagel echocardiogram was performed (2D, Doppler and color flow Doppler). MARGA probe was placed without any difficulty. There 07/18/2016 were no complications. The study was technically adequate. There is no comparison study available. No thrombus is detected in the left atrial appendage. Cruz Ragsdale MD Reading Physician: 02/06/16 Left Ventricle The left ventricular size is normal. There is normal left ventricular wall thickness. Left ventricular systolic function is normal. Ejection Fraction = 60-65%. Diastolic function is pseudonormal. Left ventricular filling presure is normal. The left ventricularwall motion is normal. Right Ventricle The right ventricular size and function are normal. Atria The left atrium is mildly dilated. The left atrium index volume is 34 ml/m^2. The right atrium is normal. Mitral Valve The mitral valve is mildly thickened. There is mild mitral regurgitation. Tricuspid Valve The tricuspid valve is normal. There is mild tricuspid regurgitation. Estimated RA pressure is 0-5 mmHg. Right ventricular systolic pressure is elevated at 35 -40 mmHg. Aortic Valve Prosthetic AoV is visualized , not well visualized, but appears to be opening well. The mean aortic valve gradient measures 28.3 mmHg. The peak to peak aortic valve gradient measures 50.9 mmHg. DVI is 0.29 ( normal >0.25) suggestive of flow across the valve with out any obstruction. No aortic regurgitation is present. Pulmonic Valve The pulmonic valve is normal. Great Vessels The aortic root is normal size. Pericardium/Pleural There is no pericardial effusion. Interpretation Summary The study was technically adequate. Compared to prior study, changes are noted. Normal LV systolic function. DIastolic function is pseudonormal. Mild PHTN. AoV appears to be prosthetic with mean gradient of 28 mmHg and DVI of 0.29 suggestive of normal flow across the valve with out any Obstruction. Cardiac Cath: 02/08/16 FINDINGS: LEFT CORONARY ARTERY: DOMINANCE: Co-Dominant Left Main Artery: Short, patent. LAD: Large vessel, proximal mild LI, mid 20-30% disease, then 40% disease at the level of D2 bifurcation,distal vessel is tortuous with mild LI. Diagonal 1: Medium vessel, mild LI. Diagonal 2: Ostial 60-70% disease, tortuous vessel. Circumflex: Large, proximal 20% disease, mid to distal mild LI. OM 1: Large, mild LI. Lt. PDA: Small and patent. DOMINANCE: Co-Dominant LV FINDINGS: LV Elevated EDP : 26 mmHg COMPLICATIONS: None DIAGNOSTIC IMPRESSION: Non-obstructive disease. Elevated LVEDP. PLANS: 1. Monitor on Telemetry floor 2. ASA for life 3. Aggressive/Optimal medical management 4. If patient continues to have symptoms then FFR+/- PCI of m-dLAD/D1 5. Findings and plan discussed with patient. Family not available. Stress Test: 02/06/16 Findings: The overall quality of the study was good. SPECT images demonstrate very small in size, mild perfusion defect of inferoapical wall on stress images which reverses at rest. Gated SPECT images demonstrate normal systolic function Left ventricular ejection fraction was calculated to be 70% at rest and 88% post-stress. Impression: Abnormal myocardial perfusion scan with very small and mild reversible defect of inferoapical wall suggests ischemia. [facility] E[facility]--Aflutter 2:1 AVB ECHO--Normal LVEF Assessment/Plan: ICD-10-CM ICD-9-CM 1. Atrial flutter, unspecified type I48.92 427.32 2. Mixed hyperlipidemia E78.2 272.2 3. Essential hypertension I10 401.9 4. Coronary artery disease involving [place] coronary artery of [place] heart without angina pectoris I25.10 414.01 5. 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] Z95.2 V43.3 6. Anticoagulated Z79.01 V58.61 Atrial Flutter--s/p DCC x 3. Now on sotalol. On Warfarin. No major episode of palpitations. Discussed refer to EP for ablation consideration but she declined. On warfarin. INR has been in range. No bleeding. Mechanical AVR--On ASA and warfarin. Goal INR 2.5-3.5. Coronary artery disease--Stable. Moderate mLAD disease and ostial D1 disease. Patient declined FFR +/- PCI. She wants medical management for now. Continue ASA and Statin. NO angina. Hypertension--BP is controlled. On sotalol. Hyperlipidemia--On lipitor 40 mg. LDL 211 in 02/2018. LDL 55 in 10/2018. RTC - 6 months. Telehealth service ? Verbal consent obtained from patient Michelle Saavedra for telehealth sevice provided ? My location: [facility] cardiology clinic ? Patient location: Home ? Format: Communication with patient was conducted via Facetime video call ? A total of 45 minutes spent on the video call with the patient/chart review/documentation [place] Dan MD, FACC, FACP, CHANDNI Furniture Repairer, Division of Cardiology [facility] documented in this encounter Plan of Treatment Health [...] Visit Diagnoses Diagnosis Atrial flutter, unspecified type - Prima ry Mixed hyperlipidemia Essential hypertension Unspecified essential hypertension Coronary artery disease involving [place] coronary artery of [place] heart without angina pectoris 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] Heart valve replaced by other means Anticoagulated Encounter for long-term (current) use of anticoagulants documented in this encounter Insurance Payer Benefit Plan / Subscriber ID Effective Phone Address T ype Group [facility] [id number] 2018-Prese Medic are Adv HEALTHCARE - HEALTHCARE DUAL nt H MO MANAGED COMPLETE O MEDICARE [place] [place] xxxxxxxxx 2013-Prese Medicaid HEALTHCARE COMM PLUS nt PLAN - MANAGED MEDICAID documented as of this encounter
--- OUTSIDE RECORDS SUMMARY | 2019-11-08 23:13 | XMS REPORT | Summary of Care ---
:1955 Author Organization [facility] Address [address] [place] [address] Care Team Providers Name Role Phone Nurse, Anticoag Unavailable Unavailable Ceasar Dobson Primary Care Provider Reason for Visit Reason Comments LAB WORK Auth/Cert Status Reason Specialty Diagnoses / Procedures Referred By Ricci abreu Referred To Contact Phlebotomy Diagnoses PAF (paroxysmal atrial fibrillation) PAF (paroxysmal atrial fibrillation) Adc Pob Lab Draw Procedures PROTHROMBIN TIME / INR PT/INR Professional Office Building [address] [place] [address] , [address] [place] [address] Phone: Fax: Encounter Details Date Type Department Care Team Description 09/30/2019 [employer] Professional Visit [facility] [place] Dan MD [address] [facility] [address] [place] [address] Atrial flutter, Professional Office Pob, Adc Lab Main unspecified type Building Phlebotomy Lab Professional Office Building [address] [place] [address] , [address] [place] [address] Allergies Active Allergy Reactions Severity Noted Date Comments Morphine Shortness of Breath High 04/29/2006 documented as of this encounter (statuses as of 09/30/2019) Medications Medication Sig Dispensed Refills Start Date [...] Active mouth 2 (two) times daily. warfarin 1 mg 2 mg 6 days/week 60 tablet 1 09/08/2019 Active tabletIndications: and 1 mg 1 Atrial flutter, day/week unspecified type documented as of this encounter (statuses as of 09/30/2019) Active Problems Problem Noted Date Mixed hyperlipidemia 12/02/2017 Essential hypertension 12/02/2017 Anticoagulated 12/02/2017 Coronary artery disease involving [place] coronary delgado ry of [place] heart 12/02/2017 without angina pectoris Coronary artery disease involving [place] heart without angina pectoris, 06/04/2017 unspecified vessel or lesion type Atrial flutter 07/16/2016 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] 02/10/2016 Chest pain with high risk for cardiac etiology 016 documented as of this encounter (statuses as of 09/30/2019) Social History Tobacco Use Types Packs/Day Years [...] Diagnosis Comme nts PROTHROMBIN TIME / Routine 09/30/2019 8:29 Atrial flutter, Re sults for this INR AM CDT unspecified type procedure a re in the results section. documented in this encounter Results PROTHROMBIN TIME / INR (09/30/2019 8:29 AM CDT) PROTIME PATIENT 22.8 (H) 12.0 - 14.7 [facility] LABORATORY INR 2.1Comment: Normal [facility] INR <1.1; Warfarin [facility] Therapeutic range LABORATORY 2.0 to 3.0 or 2.5 to 3.5, depending upon the indications. Specimen Blood - ARM, LEFT Performing Organization Address City/State/Zipcode Phone Number [facility] CLIA: [id number], [address] [place], [place] [address] documented in this encounter Visit Diagnoses Diagnosis Atrial flutter, unspecified type documented in this encounter Insurance Payer Benefit Plan / Subscriber ID Effective Phone Address T e [facility] [id number] 2018-Prese Medic are Adv HEALTHCARE - HEALTHCARE DUAL nt H MO MANAGED COMPLETE HMO MEDICARE [place] [employer] [place] xxxxxxxxx 2013-Prese Medicaid HEALTHCARE COMM PLUS nt PLAN - MANAGED MEDICAID documented as of this encounter
--- OUTSIDE RECORDS SUMMARY | 2019-11-08 23:13 | XMS REPORT | Summary of Care ---
:1955 Author Organization [facility] - [facility] Address [address] [place] [address] Care Team Providers Name Role Phone Ricci Contreras Primary Care Provider Nurse, Anticoag Unavailable Unavailable Reason for Visit Reason Comments Anticoagulation Encounter Details Date Type Department Care Team Description 09/03/2019 Telephone [facility] Cardiology- Catrina Dan MD Anticoagulation [address] [facility], [address] [place] [address] [place] [address] [phone] Allergies Active Allergy Reactions Severity Noted Date [...] tablet 2 mg 6 days/week 45 tablet 0 09/03/2019 Active and 1 mg 1 day/week documented as of this encounter (statuses as of 09/03/2019) Active Problems Problem Noted Date Mixed hyperlipidemia 12/02/2017 Essential hypertension 12/02/2017 Anticoagulated 12/02/2017 Coronary artery disease involving [place] coronary delgado ry of [place] heart 12/02/2017 without angina pectoris Coronary artery disease involving [place] heart without angina pectoris, 06/04/2017 unspecified vessel [...] 09/08/2019 Telemedicine Visit Cardiology [place] Dan MD [address] [place] [address] [phone] Health Maintenance Due Date Last Done Comments [...] Effective Phone Address T ype Group Dates [facility] [id number] 2018-[place] Medic are Adv HEALTHCARE - HEALTHCARE DUAL nt H MO MANAGED COMPLETE O MEDICARE [place] xxxxxxxxx 2013-[place] Medicaid HEALTHCARE COMM PLUS nt PLAN - MANAGED MEDICAID documented as of this encounter
--- OUTSIDE RECORDS SUMMARY | 2019-11-08 23:14 | XMS REPORT | Summary of Care ---
:1955 Author Organization [facility] Address [address] [place] [address] Care Team Providers Name Role Phone Nurse, Alex Unavailable Unavailable Ceasar Dobson Primary Care Provider Reason for Referral Radiology Services (Routine) Status Reason Specialty Diagnoses / Referred By Referred To Procedures Contact Contact Closed Diagnostic Diagnoses Visit for screening mammogram Dionisio, Radiology Procedures BI SCREENING MAMMOGRAM BILATERAL [place] [address] [place] [address] Reason for Visit Radiology Services (Routine) Status Reason Specialty Diagnoses / Referred By Referred To Procedures Contact Contact Closed Diagnostic Diagnoses Visit for screening mammogram Dionisio, Radiology Procedures BI SCREENING MAMMOGRAM BILATERAL Reh[place] [address] [place] [address] Encounter Details Date Type Department Care Team Description 10/30/2019 Hospital Encounter [facility] Radiolog y Arrived [facility] [id number] [place] [phone] Allergies Active Allergy Reactions Severity Noted Date Comments Morphine Shortness of Breath High 04/29/2006 documented as of this encounter (statuses as of 10/31/2019) Medications Medication Sig Dispensed Refills Start Date [...] as of this encounter (statuses as of 10/31/2019) Active Problems Problem Noted Date Mixed hyperlipidemia 12/02/2017 Essential hypertension 12/02/2017 Anticoagulated 12/02/2017 Coronary artery disease involving [place] coronary delgado ry of [place] heart 12/02/2017 without angina pectoris Coronary artery disease involving [place] heart without angina pectoris, 06/04/2017 unspecified vessel or lesion type Atrial flutter 07/16/2016 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] 02/10/2016 Chest pain with high risk for cardiac etiology 016 documented as of this encounter (statuses as of 10/31/2019) Social History Tobacco Use Types Packs/Day Years [...] been in contact with No / Unsure 10/30/2019 10:07 AM CDT someone who was confirmed or [...] Name Priority Date/Time Associated Diagnosis Comme nts BI SCREENING Routine 10/30/2019 10:57 AM Visit for screening R esults for this MAMMOGRAM BILATERAL CDT mammogram procedur e are in the results section. documented in this encounter Results BI SCREENING MAMMOGRAM BILATERAL (10/30/2019 10:57 AM CDT) Specimen Narrative Performed At This result has an attachment that is no t available. Examination: PACS BI SCREENING MAMMOGRAM BILATERAL History: Patient is 64 year old and is seen for: Visit for sc reening mammogram. Computer-aided detection (CAD) utilized. Comparisons : None available Findings: The breasts are almost entirely fatty. There is no neal dence of suspicious masses, calcifications, or other abnormal findings. Impression: No mammographic evidence of malignancy. Recommendation: Annual mammographic follow-up BI-RADS Category: Both 1 - Negative Performing Organization Address City/State/Zipcode Phone Number PACS documented in this encounter Visit Diagnoses Diagnosis Visit for screening mammogram Other screening mammogram documented in this encounter Insurance Payer Benefit Plan / Subscriber ID Effective Phone Address T ype Group Dates [facility] [id number] 2018-Prese Medic are Adv HEALTHCARE - HEALTHCARE DUAL nt H MO MANAGED COMPLETE HMO MEDIC[place] [employer] [place] xxxxxxxxx 2013-Prese Medicaid HEALTHCARE COMM PLUS nt PLAN - MANAGED MEDICAID documented as of this encounter
--- OUTSIDE RECORDS SUMMARY | 2019-11-08 23:14 | XMS REPORT | Summary of Care ---
:1955 Author Organization [facility] Address [address] [place] [address] Care Team Providers Name Role Phone Nurse, Anticoag Unavailable Unavailable Ceasar Dobson Primary Care Provider Encounter Details Date Type Department Care Team Description 10/30/2019 Orders Only [facility] Doctor Unassigned, No [address] [facility] [place] [address] [address] [place] [address] Allergies Active Allergy Reactions Severity Noted Date Comments Morphine Shortness of Breath High 04/29/2006 documented as of this encounter (statuses as of 10/30/2019) Medications Medication Sig Dispensed Refills Start Date [...] as of this encounter (statuses as of 10/30/2019) Active Problems Problem Noted Date Mixed hyperlipidemia 12/02/2017 Essential hypertension 12/02/2017 Anticoagulated 12/02/2017 Coronary artery disease involving [place] coronary delgado ry of [place] heart 12/02/2017 without angina pectoris Coronary artery disease involving [place] heart without angina pectoris, 06/04/2017 unspecified vessel or lesion type Atrial flutter 07/16/2016 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] 02/10/2016 Chest pain with high risk for cardiac etiology 016 documented as of this encounter (statuses as of 10/30/2019) Social History Tobacco Use Types Packs/Day Years [...] Care Team Description 10/30/2019 Appointment Radiology Radiology [address] [place] [id number] Health Maintenance Due Date Last Done Comments [...] Diagnosis Comme nts ASSIGNMENT OF BENEFITS Routine 10/30/2019 10:04 AM CDT documented in this encounter Results Not on filedocumented in this encounter Insurance Payer Benefit Plan / Subscriber ID Effective Phone Address T [facility] [id number] 2018-[place]uman Medic are Adv HEALTHCARE - HEALTHCARE DUAL nt H [place] MANAGED COMPLETE O MEDICARE [place] [place] xxxxxxxxx 2013-Prese Medicaid HEALTHCARE COMM PLUS nt PLAN - MANAGED MEDICAID documented as of this encounter
--- OUTSIDE RECORDS SUMMARY | 2019-11-08 23:14 | XMS REPORT | Summary of Care ---
:1955 Author Organization [facility] Address [address] [place] [address] Care Team Providers Name Role Phone Nurse, Anticoag Unavailable Unavailable Ceasar Dobson Primary Care Provider Reason for Visit Reason Comments LAB WORK Auth/Cert Status Reason Specialty Diagnoses / Procedures Referred By Ricci abreu Referred To Contact Phlebotomy Diagnoses Z00.00 Adc Pob Lab Draw Procedures LIPID PANEL (11329)(TOTAL CHOLESTEROL, TRIGLYCERIDES, HDL) Professional Office Building [address] [facility] , [address] [place] [address] Phone: Fax: Encounter Details Date Type Department Care Team Description 10/20/2019 Chairman Of The Board Visit [facility] Conrad Lancaster MD [address] [facility] [address] [place] [address] Routine general medical examination at a health care facility (Primary Dx); Professional Office Pob, Adc Lab Main PAF (paroxysmal atrial fibrillation) Building Phlebotomy Lab Professional Office Building [address] [facility] , [address] [place] [address] Allergies Active Allergy Reactions Severity [...] 12/02/2017 Anticoagulated 12/02/2017 Coronary artery disease involving [place] coronary delgado ry of [place] heart 12/02/2017 without angina pectoris Coronary artery disease involving [place] heart without angina pectoris, 06/04/2017 unspecified vessel [...] Care Team Description 10/30/2019 Appointment Radiology Radiology [address] [place] [address] [place] [address] Name Type Priority Associated Diagnoses Date/Ti me CBC WITH DIFF LAB Routine Routine general medical 10/2019 9:54 AM examination at a health CDT care facility THYROID STIMULATING LAB Routine Routine general medic al 10/20/2019 9:54 AM HORMONE examination at a health T care facility FREE T4 LAB Routine Routine general medical 10/2019 9:54 AM examination at a health T care facility LIPID PANEL (82918)(TOTAL LAB Routine Routine general medical 10/20/2019 9:54 AM CHOLESTEROL, examination at a [facility] TRIGLYCERIDES, HDL) care facility COMP. METABOLIC PANEL LAB Routine Routine general med ical 10/20/2019 9:54 AM (45516) [facility] GLYCOSYLATED HEMOGLOBIN LAB Routine Routine general m edical 10/20/2019 9:54 AM (A1C) [facility] MICROALBUMIN URINE LAB Routine Routine general medica l 10/20/2019 9:53 AM [facility] CREATININE, URINE RANDOM LAB Routine Routine general medical 10/20/2019 9:53 AM examination at a health T care facility PROTHROMBIN TIME / INR LAB Routine PAF (paroxysmal at rial 10/20/2019 9:54 AM fibrillation) CDT CBC WITH DIFFERENTIAL LAB Routine Routine general med ical 10/20/2019 9:54 [facility] BILI UNCONJUGATED/BILI LAB Routine Routine general me dical 10/20/2019 9:54 AM CONJUG examination at a health T care facility Name Type Priority Associated Diagnoses Order S chedule CBC WITH DIFF LAB Routine Routine general medical Exp ected: 10/20/2019, examination at a health Expi res: 10/19/2020 care facility THYROID STIMULATING LAB Routine Routine general medic al Expected: 10/20/2019, HORMONE examination at a health Expi res: 10/19/2020 care facility FREE T4 LAB Routine Routine general medical Expe cted: 10/20/2019, examination at a health Expi res: 10/19/2020 care facility LIPID PANEL (04175)(TOTAL LAB Routine Routine general medical Expected: 10/20/2019, CHOLESTEROL, examination at a health Expi res: 10/19/2020 TRIGLYCERIDES, HDL) care facility COMP. METABOLIC PANEL LAB Routine Routine general med ical Expected: 10/20/2019, (99107) examination at a health Expi res: 10/19/2020 care facility GLYCOSYLATED HEMOGLOBIN LAB Routine Routine general m edical Expected: 10/20/2019, (A1C) examination at a health Expi res: 10/19/2020 care facility MICROALBUMIN URINE LAB Routine Routine general medica l Expected: 10/20/2019, examination at a health Expi res: 10/19/2020 care facility CREATININE, URINE RANDOM LAB Routine Routine general medical Expected: 10/20/2019, examination at a health Expi res: 10/19/2020 care facility BILI UNCONJUGATED/BILI LAB Routine Routine general me dical Expected: 10/20/2019, CONJUG examination at a health Expi res: 10/19/2020 care facility Health Maintenance Due Date Last Done Comments HEPATITIS C (HCV) SCREEN 1955 DTaP,Tdap,and Td Vaccines (1 - Tdap) 1964 Depression Screening 1965 Breast Cancer Screening (MAMMOGRAM) 1993 COLONOSCOPY 2003 Zoster Recombinant Vaccine (SHINGRIX) (1 of 2) 2003 Medicare Wellness Visit 2018 Osteoporosis Screening 2018 PNEUMOCOCCAL VACCINES 65+ (1 of 2 - PCV13) 2018 INFLUENZA VACCINE (#1) 2019 documented as of this encounter Results Not on filedocumented in this encounter Visit Diagnoses Diagnosis Routine general medical examination at a health care facility - Primary PAF (paroxysmal atrial fibrillation) Atrial fibrillation documented in this encounter Insurance Payer Benefit Plan / Subscriber ID Effective Phone Address T e Group Dates [facility] [id number] 2018-Prese Medic are Adv HEALTHCARE - HEALTHCARE DUAL nt H MO MANAGED COMPLETE HMO MEDICARE documented as of this encounter
--- OUTSIDE RECORDS SUMMARY | 2019-11-08 23:14 | XMS REPORT | Summary of Care ---
:1955 Author Organization [facility] Address [address] [place] [address] Care Team Providers Name Role Phone Nurse, Anticoag Unavailable Unavailable Olya, E Primary Care Provider Reason for Visit Reason Comments Anticoagulation Encounter Details Date Type Department Care Team Description 10/20/2019 Telephone [facility] Cardiology- Catrina Dan MD Anticoagulation [place] [address] [facility] [address] [facility], [address] [place] [address] [place] [address] [phone] Allergies Active Allergy Reactions Severity Noted Date [...] 12/02/2017 Anticoagulated 12/02/2017 Coronary artery disease involving [place] coronary delgado ry of [place] heart 12/02/2017 without angina pectoris Coronary artery disease involving [place] heart without angina pectoris, 06/04/2017 unspecified vessel [...] Care Team Description 10/30/2019 Appointment Radiology Radiology [address] [place] [address] [address] [facility] [place] [address] Name Type Priority Associated Diagnoses Order S chedule PROTHROMBIN TIME / INR LAB Routine Atrial flutter, 60 Occurrences starting unspecified type 10/20/2019 until 10/19/2020 Health Maintenance Due Date Last Done Comments [...] Atrial flutter, unspecified type - Prima ry documented in this encounter Insurance Payer Benefit Plan / Subscriber ID Effective Phone Address T e Group Dates [facility] [id number] 2018-Prese Medic are Adv HEALTHCARE - HEALTHCARE DUAL nt H MO MANAGED COMPLETE O MEDICARE [place] xxxxxxxxx 2013-Prese Medicaid HEALTHCARE COMM PLUS nt PLAN - MANAGED MEDICAID documented as of this encounter
[2019-11-09 01:19] LABS: Absolute Lymphocytes (CBC) 1.5 K/uL (0.7-4.9); Basophils % 1.1 % (0-1.3); Hematocrit 33.4 % (36.0-45.0); Lymphocytes % 29.5 % (15.3-44.8); MPV 9.8 fL (7.6-11.3); Protime INR 2.05; RBC Red Blood Cell Count 3.49 M/uL (3.86-4.86)
[2019-11-09] MEDS ORDERED: ACETAMINOPHEN 500 MG TAB ONE (01:30)
[2019-11-09] MEDS ORDERED: LIDOCAINE VISCOUS 2% SOLN 15 ML UDC ONE (01:30)
[2019-11-09] MEDS ORDERED: MAGNE/ALUM HYDROXD 30 ML UCUP ONE (01:30)
[2019-11-09 01:42] LABS: ALT/SGPT 15 U/L (12-78); AST/SGOT 19 U/L (15-37); Alkaline Phosphatase 94 U/L (45-117); BUN Blood Urea Nitrogen 10 mg/dL (7-18); Bicarbonate 30 mmol/L (21-32); Bilirubin Direct 0.1 mg/dL (0-0.2); Bilirubin Total 0.4 mg/dL (0.2-1.0); Glucose Level 91 mg/dL (74-106); Magnesium 2.1 mg/dL (1.8-2.4); NT PRO-BNP 1086 pg/mL (<125); Potassium 3.5 mmol/L (3.5-5.1); Protein, Total 7.8 g/dL (6.4-8.2); Sodium Level 144 mmol/L (136-145)
[2019-11-09 01:56] LABS: Troponin (Emerg Dept Use Only) < 0.02 ng/mL (0.0-0.045)
[2019-11-09] MEDS ORDERED: FENTANYL CITR 100 MCG/2 ML ONE (02:27)
--- NOTE | 2019-11-09 04:46 | ER ---
Nurse's Notes [facility] Name: Michelle Saavedra Age: 64 yrs Sex: Female : 1955 Arrival Date: 11/08/2019 Time: 23:11 Bed 7 Private MD: Diagnosis: Other chest pain Presentation: 11/07 23:39 Chief complaint: Patient states: Chest pain since this morning; States pain to middle lp1 of chest; Denies nausea, vomiting. Coronavirus screen: Patient denies a cough. Patient denies shortness of breath or difficulty breathing. Patient denies measured and/or subjective temperature greater than 100.4F prior to today's visit. Patient denies travel on a cruise ship or to a country the [facility] currently lists as an affected area. Patient denies contact with known and/or suspected case of COVID-19. Proceed with normal triage. Ebola Screen: No symptoms or risks identified at this time. Initial Sepsis Screen: Does the patient meet any 2 criteria? No. Patient's initial sepsis screen is negative. Does the patient have a suspected source of infection? No. Patient's initial sepsis screen is negative. Risk Assessment: Do you want to hurt yourself or someone else? Patient reports no desire to harm self or others. Onset of symptoms was November 08, 2019. 23:39 Method Of Arrival: Ambulatory lp1 23:39 Acuity: AJKUB 3 lp1 Historical: - Allergies: 23:42 Morphine; lp1 11/08 02:23 Fentanyl; itching; jd3 - Home Meds: 11/07 23:42 Coumadin 2.5 mg Oral tab 1 tab once daily [Active]; sotalol 80 mg Oral tab 2 times per lp1 day [Active]; atorvastatin 20 mg Oral tab 1 tab once daily [Active]; pantoprazole Oral [Active]; aspirin 81 mg Oral tab 1 tab once daily [Active]; [place] 7.5-325 mg Oral tab 1 tab every 4 hours [Active]; gabapentin oral oral [Active]; - PMHx: 23:42 Atrial Fib; Back pain; GERD; Hyperlipidemia; Hypertension; mechanical heart valve; lp1 - PSHx: 23:42 Mechanical heart valve; lp1 - Immunization history:: Adult Immunizations up to date. - Social history:: Smoking status: Patient denies any tobacco usage or history of. Screenin:42 Abuse screen: Denies threats or abuse. Denies injuries from another. Nutritional lp1 screening: No deficits noted. Tuberculosis screening: No symptoms or risk factors identified. 11/08 01:03 Fall Risk Ambulatory Aid- Crutches/Cane/Walker (15 pts). Gait- Weak (10 pts.). Mental jd3 Status- Oriented to own ability (0 pts). Total Fay Fall Scale indicates Low Risk Score (25-44 pts). Fall prevention measures have been instituted. Side Rails Up X 2 Placed close to Nursing Station Frequent Obs/Assesments occuring. Assessment: 00:30 General: Appears in no apparent distress. uncomfortable, Behavior is calm, cooperative, jd3 appropriate for age. Pain: Complains of pain in chest Pain does not radiate. Quality of pain is described as pressure, sharp, Pain began gradually. Neuro: Level of Consciousness is awake, alert, obeys commands, Oriented to person, place, time, situation. Cardiovascular: Capillary refill < 3 seconds Patient's skin is warm and dry. Rhythm is sinus bradycardia. Respiratory: Airway is patent Respiratory effort is even, unlabored, Respiratory pattern is regular, symmetrical, Denies cough, shortness of breath. GI: No signs and/or symptoms were reported involving the gastrointestinal system. : No signs and/or symptoms were reported regarding the genitourinary system. EENT: No signs and/or symptoms were reported regarding the EENT system. Derm: Skin is intact, Skin is dry, Skin is normal, Skin temperature is warm. Musculoskeletal: Circulation, motion, and sensation intact. Range of motion: intact in all extremities. 01:04 Reassessment: Patient appears in no apparent distress at this time. No changes from jd3 previously documented assessment. Patient and/or family updated on plan of care and expected duration. Pain level reassessed. Patient is alert, oriented x 3, equal unlabored respirations, skin warm/dry/pink. 02:23 Reassessment: Patient appears in no apparent distress at this time. Patient and/or jd3 family updated on plan of care and expected duration. Pain level reassessed. Patient is alert, oriented x 3, equal unlabored respirations, skin warm/dry/pink. 03:39 Reassessment: Patient appears in no apparent distress at this time. Patient and/or jd3 family updated on plan of care and expected duration. Pain level reassessed. Patient is alert, oriented x 3, equal unlabored respirations, skin warm/dry/pink. 04:33 Reassessment: Patient appears in no apparent distress at this time. No changes from jd3 previously documented assessment. Patient and/or family updated on plan of care and expected duration. Pain level reassessed. Patient is alert, oriented x 3, equal unlabored respirations, skin warm/dry/pink. 05:49 Reassessment: Patient appears in no apparent distress at this time. Patient and/or jd3 family updated on plan of care and expected duration. Pain level reassessed. Patient is alert, oriented x 3, equal unlabored respirations, skin warm/dry/pink. awaiting admission orders. Vital Signs: 11/07 23:39 BP 195 / 64; Pulse 51; Resp 18; Temp 98(O); Pulse Ox 99% on R/A; Weight 49.9 kg (R); lp1 Height 5 ft. 3 in. (160.02 cm); Pain 8/10; 11/08 01:04 BP 167 / 57; Pulse 47; Resp 17 S; Pulse Ox 100% on R/A; jd3 02:23 BP 189 / 62; Pulse 45; Resp 15 S; Pulse Ox 99% on R/A; jd3 03:39 BP 165 / 67; Pulse 46; Resp 20 S; Pulse Ox 100% on R/A; jd3 04:33 BP 137 / 72; Pulse 44; Resp 16 S; Pulse Ox 100% on R/A; jd3 05:50 BP 174 / 60; Pulse 43; Resp 19 S; Pulse Ox 98% on R/A; jd3 11/07 23:39 Body Mass Index 19.49 (49.90 kg, 160.02 cm) lp1 ED Course: 11/07 23:11 Patient arrived in ED. ds1 23:41 Triage completed. lp1 23:41 Arm band placed on. lp1 11/08 00:24 Blaine Jarvis MD is Attending Physician. tw4 00:29 You Vo RN is Primary Nurse. jd3 00:48 XRAY Chest (1 view) In Process Unspecified. EDMS 01:02 Inserted saline lock: 20 gauge in left antecubital area, using aseptic technique. Blood jd3 collected. Patient maintains SpO2 saturation greater than 95% on room air. 01:03 Patient has correct armband on for positive identification. Placed in gown. Bed in low jd3 position. Call light in reach. Side rails up X 1. convex grinder operator on. Pulse ox on. NIBP on. 04:45 Torres Arvizu is Hospitalizing Provider. tw4 08:03 No provider procedures requiring assistance completed. Patient admitted, IV remains in sv place. intact. Administered Medications: 01:45 Not Given (Patient Refused): GI Cocktail without - (Maalox Suspension 30 ml, jd3 Lidocaine Liquid 2 % 15 ml) PO once 01:45 Not Given (Patient Refused): Tylenol 1000 mg PO once jd3 02:22 Drug: fentaNYL (PF) 12.5 mcg Route: IVP; Site: left antecubital; jd3 03:20 Follow up: Response: No adverse reaction; RASS: Alert and Calm (0) jd3 Outcome: 04:45 Decision to Hospitalize by Provider. tw4 08:03 Admitted to Tele accompanied by 2-Observe, via wheelchair, room 225, with chart, Report sv called to ASTRID RN 08:03 Condition: stable 08:03 Instructed on the need for admit. 08:04 Patient left the ED. sv Signatures: Dispatcher [employer] Eliane Meza, RN RN Marika Gutierrez ds1 Carmen Andres RN RN lpYou Bolivar RN RN Blaine Andrews MD MD tw4 Corrections: (The following items were deleted from the chart) 02:23 11/07 23:42 Allergies: Fentanyl; lp1 jd3
--- NOTE | 2019-11-09 04:46 | EDPHYS ---
Physician Documentation [facility] Name: Michelle Saavedra Age: 64 yrs Sex: Female : 1955 Arrival Date: 11/08/2019 Time: 23:11 Bed 7 Private MD: ED Physician Blaine Jarvis HPI: 11/08 02:32 This 64 yrs old Female presents to ER via Ambulatory with complaints of Chest tw4 Pain. 02:32 The patient or guardian reports chest pain that is located primarily in the anterior tw4 chest wall. Onset: today. The pain does not radiate. Associated signs and symptoms: Pertinent positives: abdominal pain. The chest pain is described as dull. Duration: The patient or guardian reports a single episode. Modifying factors: The symptoms are alleviated by nothing. the symptoms are aggravated by nothing. Severity of pain: At its worst the pain was moderate in the emergency department the pain is unchanged. Historical: - Allergies: 11/07 23:42 Morphine; lp1 11/08 02:23 Fentanyl; itching; jd3 - Home Meds: 11/07 23:42 Coumadin 2.5 mg Oral tab 1 tab once daily [Active]; sotalol 80 mg Oral tab 2 times per lp1 day [Active]; atorvastatin 20 mg Oral tab 1 tab once daily [Active]; pantoprazole Oral [Active]; aspirin 81 mg Oral tab 1 tab once daily [Active]; [place] 7.5-325 mg Oral tab 1 tab every 4 hours [Active]; gabapentin oral oral [Active]; - PMHx: 23:42 Atrial Fib; Back pain; GERD; Hyperlipidemia; Hypertension; mechanical heart valve; lp1 - PSHx: 23:42 Mechanical heart valve; lp1 - Immunization history:: Adult Immunizations up to date. - Social history:: Smoking status: Patient denies any tobacco usage or history of. ROS: 11/08 02:32 Constitutional: Negative for fever, chills, and weight loss, Eyes: Negative for injury, tw4 pain, redness, and discharge, Respiratory: Negative for shortness of breath, cough, wheezing, and pleuritic chest pain, Abdomen/GI: Negative for abdominal pain, nausea, vomiting, diarrhea, and constipation, Back: Negative for injury and pain, MS/Extremity: Negative for injury and deformity, Skin: Negative for injury, rash, and discoloration, Neuro: Negative for headache, weakness, numbness, tingling, and seizure. Cardiovascular: Positive for chest pain, Negative for edema, orthopnea, palpitations, paroxysmal nocturnal dyspnea. Exam: 02:32 Constitutional: This is a well developed, well nourished patient who is awake, alert, tw4 and in no acute distress. Head/Face: Normocephalic, atraumatic. Chest/axilla: Normal chest wall appearance and motion. Nontender with no deformity. No lesions are appreciated. Cardiovascular: Regular rate and rhythm with a normal S1 and S2. No gallops, murmurs, or rubs. Normal PMI, no JVD. No pulse deficits. Respiratory: Lungs have equal breath sounds bilaterally, clear to auscultation and percussion. No rales, rhonchi or wheezes noted. No increased work of breathing, no retractions or nasal flaring. Abdomen/GI: Soft, non-tender, with normal bowel sounds. No distension or tympany. No guarding or rebound. No evidence of tenderness throughout. Back: No spinal tenderness. No costovertebral tenderness. Full range of motion. MS/ Extremity: Pulses equal, no cyanosis. Neurovascular intact. Full, normal range of motion. Neuro: Awake and alert, GCS 15, oriented to person, place, time, and situation. Cranial nerves II-XII grossly intact. Motor strength 5/5 in all extremities. Sensory grossly intact. Cerebellar exam normal. Normal gait. Vital Signs: 11/07 23:39 BP 195 / 64; Pulse 51; Resp 18; Temp 98(O); Pulse Ox 99% on R/A; Weight 49.9 kg (R); lp1 Height 5 ft. 3 in. (160.02 cm); Pain 8/10; 11/08 01:04 BP 167 / 57; Pulse 47; Resp 17 S; Pulse Ox 100% on R/A; jd3 02:23 BP 189 / 62; Pulse 45; Resp 15 S; Pulse Ox 99% on R/A; jd3 03:39 BP 165 / 67; Pulse 46; Resp 20 S; Pulse Ox 100% on R/A; jd3 04:33 BP 137 / 72; Pulse 44; Resp 16 S; Pulse Ox 100% on R/A; jd3 05:50 BP 174 / 60; Pulse 43; Resp 19 S; Pulse Ox 98% on R/A; jd3 11/07 23:39 Body Mass Index 19.49 (49.90 kg, 160.02 cm) lp1 MDM: 00:28 Patient medically screened. tw4 05:42 Differential diagnosis: acute pericarditis, coronary artery disease chest wall pain, tw4 pulmonary embolus, stable angina, thoracic aortic disection. HEART Score: History: Moderately Suspicious (1), ECG: Non specific repolarization disturbance / LBTB / PM (1), Age: > or = 65 years (2), Risk Factors: 1 or 2 risk factors (1), Troponin: < or = 1 x Normal Limit (0), Total Score = 5. Data reviewed: vital signs, nurses notes. Data reviewed: lab test result(s), cardiac enzymes, CBC, electrolytes, EKG, radiologic studies, plain films. Data interpreted: Pulse oximetry: Interpretation: normal. Counseling: I had a detailed discussion with the patient and/or guardian regarding: the historical points, exam findings, and any diagnostic results supporting the discharge/admit diagnosis, lab results, radiology results. Physician consultation: Torres Arvizu regarding admission, to the telemetry unit. patient's condition, and will see patient in ED. 11/08 00:25 Order name: Basic Metabolic Panel; Complete Time: :11/08 01:59 Interpretation: Normal except: CL 109; GFR 62. 11/08 00:25 Order name: CBC with Diff; Complete Time: 11/08 01:59 Interpretation: Normal except: RBC 3.49; HGB 11.0; HCT 33.4; MCV 95.6; MCH 31.5. 11/08 00:25 Order name: LFT's; Complete Time: :11/08 01:59 Interpretation: Normal except: GLOB 3.8. 11/08 00:25 Order name: Magnesium; Complete Time: :59 11/08 01:59 Interpretation: Within normal limits: MG 2.1. 11/08 00:25 Order name: NT PRO-BNP; Complete Time: :58 11/08 01:59 Interpretation: Abnormal: NT PRO-BNP 1086. 11/08 00:25 Order name: PT-INR; Complete Time: 01:58 11/08 01:59 Interpretation: Abnormal: PT 23.8. 11/08 00:25 Order name: Troponin (emerg Dept Use Only); Complete Time: 01:59 11/08 00:25 Order name: XRAY Chest (1 view) 11/08 00:25 Order name: EKG; Complete Time: 00:26 11/08 00:25 Order name: Cardiac monitoring; Complete Time: 00:30 11/08 00:25 Order name: EKG - Nurse/Tech; Complete Time: 00:49 11/08 00:25 Order name: IV Saline Lock; Complete Time: 00:49 11/08 00:25 Order name: Labs collected and sent; Complete Time: 00:49 11/08 00:25 Order name: O2 Per Protocol; Complete Time: 00:30 11/08 00:25 Order name: O2 Sat Monitoring; Complete Time: 00:30 EC:34 Rate is 48 beats/min. Rhythm is regular. QRS [place] is Normal. FL interval is normal. QRS tw4 interval is normal. QT interval is normal. No Q waves. T waves are Flattened in leads aVL, V5, V6. No ST changes noted. Clinical impression: Sinus bradycardia. Interpreted by me. Reviewed by me. Administered Medications: 01:45 Not Given (Patient Refused): GI Cocktail without - (Maalox Suspension 30 ml, jd3 Lidocaine Liquid 2 % 15 ml) PO once 01:45 Not Given (Patient Refused): Tylenol 1000 mg PO once jd3 02:22 Drug: fentaNYL (PF) 12.5 mcg Route: IVP; Site: left antecubital; jd3 03:20 Follow up: Response: No adverse reaction; RASS: Alert and Calm (0) jd3 Disposition: 11/09/19 04:45 Hospitalization ordered by Torres Arvizu for Observation. Preliminary diagnosis is Other chest pain. - Bed requested for Telemetry/MedSurg (observation). - Status is Observation. sv - Condition is Stable. - Problem is new. - Symptoms have improved. Signatures: Dispatcher [employer] EDEliane Cerda RN RN sv Carmen Andres RN RN lp1 Merary Dinero RN RN cg You Vo, RN RN jd3 Blaine Jarvis MD MD tw4 Corrections: (The following items were deleted from the chart) 02:23 11/07 23:42 Allergies: Fentanyl; lp1 jd3 11/08 06:44 04:45 Hospitalization Ordered by Torres Arvizu for Observation. Preliminary diagnosis cg is Other chest pain. Bed requested for Telemetry/MedSurg (observation). Status is Observation. Condition is Stable. Problem is new. Symptoms have improved. tw4 08:04 06:44 11/09/2019 04:45 Hospitalization Ordered by Torres Arvizu for Observation. sv Preliminary diagnosis is Other chest pain. Bed requested for Telemetry/MedSurg (observation). Status is Observation. Condition is Stable. Problem is new. Symptoms have improved. cg
--- NOTE | 2019-11-09 06:30 | P.HP ---
Certification for Inpatient Patient admitted to: Observation With expected LOS: <2 Midnights Practitioner: I am a practitioner with admitting privileges, knowledge of patient current condition, hospital course, and medical plan of care. Services: Services provided to patient in accordance with Admission requirements found in Title 42 Section 412.3 of the Code of Federal Regulations Patient History Date of Service: 11/09/19 Reason for admission: Chest pain History of Present Illness: 64-year-old woman with a history of aortic valve replacement, atrial fibrillation, present to the emergency room with a complaint of chest pain of 1 day duration, rated as 6/10, located in the anterior chest, described as pressure-like sensation, no radiation, no relieving or aggravating factors. Patient also has chronic back pain and was complaining of back pain too. EKG done in the ED demonstrated marked sinus bradycardia with nonspecific ST-T changes. Initial troponin is negative. Patient is on Coumadin for prosthetic aortic valve. Her INR is therapeutic. Patient is placed under observation for ACS rule out. Allergies morphine Allergy (Intermediate, Verified 04/05/18 04:34) panic ATTACK; shaking fentanyl Allergy (Verified 04/05/18 04:34) Itching Home Medications: Zolpidem Tartrate [Ambien*] 10 mg PO BEDTIME 07/07/13 Pantoprazole [Protonix Tab*] 40 mg PO DAILYAC #30 tab 06/16/15 Aspirin Chewable [Aspirin Chewable*] 81 mg PO BEDTIME 04/30/17 Atorvastatin Calcium 40 mg PO BEDTIME 04/30/17 Hydrocodone Bit/Acetaminophen [Hydrocodon-Acetaminoph 7.5-325] 1 pill PO TID PRN 03/02/19 Lidocaine 4% Patch [Lidoderm 5% Patch*] 1 patch TOP BEDTIME PRN 03/02/19 Iron Ag,Ps/C/Fa6/B12/Zn/SA/Sto [Niferex Tablet] 1 each PO DAILY #30 tablet 03/03/19 Sotalol HCl [Betapace*] 40 mg PO BID 6AM 6PM #30 tab 03/03/19 Warfarin Sodium [Coumadin] 2 mg PO DAILY #30 tablet 03/03/19 - Past Medical/Surgical History Diabetic: No -: chronic back pain -: depression -: gallstones -: kidney infection -: GERD -: mechanical aorta -: palpitations -: Atrial fibrillation -: aortic valve replacement -: cardioversion -: tubal ligation - Family History Brother -: Cancer Notes: heart attack Father -: Heart disease, Other (see notes) Notes: mother and siblings as well Mother -: Heart disease, Diabetes Notes: of heart attack Sister -: Heart disease, Diabetes, Cancer Notes: sisters x2 - DM. sister x1 - heart attack. sister- lung cancer - Social History Alcohol use: No CD- Drugs: No Caffeine use: Yes Review of Systems Other: Except as documented, all other systems reviewed and negative. Physical Examination - Physical Exam General: Alert, In no apparent distress, Oriented x3 HEENT: Mucous membr. moist/pink, Sclerae nonicteric Neck: Supple, JVD not distended Respiratory: Clear to auscultation bilaterally, Normal air movement Cardiovascular: No edema, Regular rate/rhythm, Normal S1 S2, Other (Mechanical S2 sound) Capillary refill: <2 Seconds Gastrointestinal: Normal bowel sounds, Soft and benign, Non-distended, No tenderness Musculoskeletal: No swelling, No erythema Integumentary: No rashes Neurological: Normal strength at 5/5 x4 extr, Cranial nerves 3-12 intact - Studies Laboratory Data (last 24 hrs) 11/09/19 00:46: PT 23.8 H, INR 2.05 11/09/19 00:46: WBC 5.2, Hgb 11.0 L, Hct 33.4 L, Plt Count 217 11/09/19 00:46: Sodium 144, Potassium 3.5, BUN 10, Creatinine 0.91, Glucose 91, Magnesium 2.1, Total Bilirubin 0.4, AST 19, ALT 15, Alkaline Phosphatase 94 Assessment and Plan - Problems (Diagnosis) (1) Chronic atrial fibrillation Current Visit: Yes Status: Acute (2) Bradycardia Onset Date: 06/15/15 Current Visit: No Status: Acute (3) Chest pain Onset Date: 06/15/15 Current Visit: No Status: Acute Qualifiers: (4) H/O aortic valve repair Current Visit: No Status: Chronic - Plan Place under observation. Trend troponin Continue Coumadin Add aspirin Avoid beta-blockers given significant bradycardia. Get echocardiogram. Pain management-IV hydromorphone. - Advance Directives Does patient have a Living Will: No Does patient have a Durable POA for Healthcare: No
--- NOTE | 2019-11-09 08:18 | RAD REPORT ---
EXAM DESCRIPTION: RAD - Chest Single View - 11/09/2019 12:48 am CLINICAL HISTORY: CHEST PAIN COMPARISON: February 2019 TECHNIQUE: AP portable chest image was obtained 11/09/2019 12:48 am . FINDINGS: No peripheral mass or consolidation. Chronic interstitial opacification matches comparison . Cardiac silhouette is enlarged but stable. Vasculature within normal limits. Trachea is midline. St ernotomy wires are in place. No measurable pleural effusion and no pneumothorax. No acute bony abnorm ality seen. No acute aortic findings suspected. IMPRESSION: No acute cardiopulmonary process. Chronic interstitial pattern matches comparison. Severity of chronic disease could potentially mask e arliest stages of edema or infiltrate.
[2019-11-09] MEDS ORDERED: NITROGLYCERIN 0.4 MG/TAB SL PRN (08:28)
[2019-11-09] MEDS ORDERED: ZOLPIDEM TARTRATE 5 MG TABLET PO PRN (08:28)
[2019-11-09 09:12] LABS: HDL Cholesterol 76 mg/dL (40-60); LDL Cholesterol, Calculated 55 (<130); Troponin I < 0.02 ng/mL (0.0-0.045)
[2019-11-09 09:31] VITALS: BMI 18.4
[2019-11-09] MEDS: HYDROMORPHONE HCL 1 MG/ML INJ IV PRN ×4 (09:49→21:44)
[2019-11-09] MEDS: ASPIRIN EC 81 MG TAB PO SCH (09:49)
[2019-11-09] MEDS ORDERED: PNEUMOCOCCAL VACCINE 0.5 ML IMVAC ONE (10:00)
[2019-11-09] MEDS ORDERED: LIDOCAINE 4% PATCH TOP PRN (18:10)
[2019-11-09] MEDS ORDERED: HYDROCODONE/APAP 7.5/325 MG TAB PO PRN (18:10)
[2019-11-09] MEDS ORDERED: ZOLPIDEM TARTRATE 5 MG TABLET PO SCH (21:00)
[2019-11-09] MEDS ORDERED: ATORVASTATIN 40 MG TAB PO SCH (21:00)
[2019-11-10 05:51] LABS: Absolute Lymphocytes (CBC) 1.6 K/uL (0.7-4.9); Basophils % 1.1 % (0-1.3); Hematocrit 29.5 % (36.0-45.0); Lymphocytes % 26.9 % (15.3-44.8); MPV 9.5 fL (7.6-11.3); RBC Red Blood Cell Count 3.08 M/uL (3.86-4.86)
[2019-11-10 06:15] LABS: Potassium 3.5 mmol/L (3.5-5.1)
[2019-11-10] MEDS ORDERED: PANTOPRAZOLE 40MG TABLET PO SCH (06:30)
[2019-11-10] MEDS: ASPIRIN EC 81 MG TAB PO SCH (08:34)
[2019-11-10] MEDS ORDERED: [UNRECOGNIZED DRUG - OTHER] PO SCH (09:00)
[2019-11-10] MEDS ORDERED: WARFARIN SODIUM 2 MG TAB PO SCH ×2 (09:00→17:00)
[2019-11-10] MEDS ORDERED: GABAPENTIN 100 MG CAP PO SCH (09:00)
--- NOTE | 2019-11-10 10:42 | ECHO ---
HEIGHT: 5 ft 3.5 in WEIGHT: 106 lb 0 oz DATE OF STUDY: 11/09/[address]: ventura jackson 2-DIMENSIONAL: YES M.MODE: YES DOPPLER: YES COLOR FLOW: YES TDS: NO PORTABLE: NO DEFINITY: NO BUBBLE STUDY: NO DIAGNOSIS: CHEST PAIN, AVR CARDIAC HISTORY: CATHERIZATION: YES SURGERY: YES PROSTHETIC VALVE: YES PACEMAKER: NO MEASUREMENTS (cm) DIASTOLIC (NORMALS) SYSTOLIC (NORMALS) IVSd 1.0 (0.6-1.2) LA Diam 3.8 (1.9-4.0) LVEF 78% LVIDd 3.9 (3.5-5.7) LVIDs 2.1 (2.0-3.5) %FS 46% LVPWd 0.9 (0.6-1.2) Ao Diam 2.2 (2.0-3.7) 2 DIMENSIONAL ASSESSMENT: RIGHT ATRIUM: NORMAL LEFT ATRIUM: ENLARGED RIGHT VENTRICLE: NORMAL LEFT VENTRICLE: NORMAL TRICUSPID VALVE: MITRAL VALVE: PULMONIC VALVE: AORTIC VALVE: PERICARDIAL EFFUSION: NONE AORTIC ROOT: NORMAL LEFT VENTRICULAR WALL MOTION: NORMAL DOPPLER/COLOR FLOW: AORTIC VALVE DVI IS 0.48 COMMENTS: NORMAL LEFT VENTRICULAR EJECTION FRACTION 55-60% WITH NORMAL WALL MOTION. AORTIC VALVE PROSTHESIS IN GOOD POSITION, FUNCTIONING WELL WITH NORMAL DVI OF 0.48. MODERATE MITRAL VALVE REGURGITATION WITH SEVERE LEFT ATRIAL ENLARGEMENT. MILD TRICUSPID REGURGITATION. MILD PULMONARY INSUFFICIENCY. TECHNOLOGIST: Danna ZAMORA
[2019-11-10 10:45] VITALS: O2SAT 97
[2019-11-10] MEDS: HYDROMORPHONE HCL 1 MG/ML INJ IV PRN (12:09)
--- NOTE | 2019-11-10 13:25 | P.DS ---
Admission Date: 11/09/19 Discharge Date: 11/11/19 Disposition: ROUTINE DISCHARGE Discharge Condition: GOOD Reason for Admission: Chest pain Brief History of Present Illness: 64-year-old woman with a history of aortic valve replacement, atrial fibrillation, present to the emergency room with a complaint of chest pain of 1 day duration, rated as 6/10, located in the anterior chest, described as pressure-like sensation, no radiation, no relieving or aggravating factors. Patient also has chronic back pain and was complaining of back pain too. EKG done in the ED demonstrated marked sinus bradycardia with nonspecific ST-T changes. Initial troponin is negative. Patient is on Coumadin for prosthetic aortic valve. Her INR is therapeutic. Patient is placed under observation for ACS rule out. Hospital Course: The patient was admitted and was monitored closely under telemetry. Cardiac enzymes were trended and was within normal limits. Patient underwent an echocardiogram which showed no regional wall motion abnormality. Continued home medications and titrate as needed. Patient was chest pain-free and wanted to go home and is being discharged home today in a stable condition with advice to fol low up with PCP in 1 week also with Cardiology in 1-2 weeks. Vital Signs/Physical Exam: Temp Pulse Resp BP Pulse Ox 97.3 F 49 L 19 150/65 H 97 11/10/19 08:00 11/10/19 08:00 11/10/19 12:09 11/10/19 08:00 11/10/19 12:09 General: Alert, In no apparent distress HEENT: Atraumatic, Normocephalic Neck: Supple Respiratory: Clear to auscultation bilaterally Cardiovascular: Regular rate/rhythm, Normal S1 S2 Capillary refill: <2 Seconds Gastrointestinal: Soft and benign, W/out hepatosplenomegaly Musculoskeletal: No clubbing Integumentary: No rashes Neurological: Normal speech, Normal strength at 5/5 x4 extr Lymphatics: No axilla or inguinal lymphadenopathy Laboratory Data at Discharge: WBC 5.9 K/uL (4.3-10.9) 11/10/19 05:28 Hgb 9.8 g/dL (12.0-15.0) L 11/10/19 05:28 Hct 29.5 % (36.0-45.0) L 11/10/19 05:28 Plt Count 170 K/uL (152-406) D 11/10/19 05:28 PT 23.8 SECONDS (9.5-12.5) H 11/09/19 00:46 INR 2.05 11/09/19 00:46 Sodium 142 mmol/L (136-145) 11/10/19 05:28 Potassium 3.5 mmol/L (3.5-5.1) 11/10/19 05:28 BUN 12 mg/dL (7-18) 11/10/19 05:28 Creatinine 0.76 mg/dL (0.55-1.3) 11/10/19 05:28 Glucose 82 mg/dL (74-106) 11/10/19 05:28 Magnesium 2.1 mg/dL (1.8-2.4) 11/09/19 00:46 Total Bilirubin 0.4 mg/dL (0.2-1.0) 11/09/19 00:46 AST 19 U/L (15-37) 11/09/19 00:46 ALT 15 U/L (12-78) 11/09/19 00:46 Alkaline Phosphatase 94 U/L (45-117) 11/09/19 00:46 Troponin I < 0.02 ng/mL (0.0-0.045) 11/09/19 12:19 Triglycerides 87 mg/dL (<150) 11/09/19 08:43 Cholesterol 148 mg/dL (<200) 11/09/19 08:43 HDL Cholesterol 76 mg/dL (40-60) H 11/09/19 08:43 Cholesterol/HDL Ratio 1.95 11/09/19 08:43 Home Medications: Zolpidem Tartrate [Ambien*] 10 mg PO BEDTIME 07/07/13 Pantoprazole [Protonix Tab*] 40 mg PO DAILYAC #30 tab 06/16/15 Aspirin Chewable [Aspirin Chewable*] 81 mg PO BEDTIME 04/30/17 Atorvastatin Calcium 40 mg PO BEDTIME 04/30/17 Hydrocodone Bit/Acetaminophen [Hydrocodon-Acetaminoph 7.5-325] 1 pill PO TID PRN 03/02/19 Lidocaine 4% Patch [Lidoderm 5% Patch*] 1 patch TOP BEDTIME PRN 03/02/19 Iron Ag,Ps/C/Fa6/B12/Zn/SA/Sto [Niferex Tablet] 1 each PO DAILY #30 tablet 03/03/19 Sotalol HCl [Betapace*] 40 mg PO BID 6AM 6PM #30 tab 03/03/19 Warfarin Sodium [Coumadin] 2 mg PO DAILY #30 tablet 03/03/19 Gabapentin [Neurontin*] 1 cap PO DAILY 11/09/19 Codeine/APAP [Tylenol W/Codeine #3 tab] 1 tab PO Q6HP PRN #20 tab 11/10/19 Nitroglycerin [Nitrostat*] 0.4 mg SL UD PRN #30 tab 11/10/19 New Medications: Nitroglycerin [Nitrostat*] 0.4 mg SL UD PRN #30 tab PRN Reason: Pain Scale 2-4 (Mild) Codeine/APAP [Tylenol W/Codeine #3 tab] 1 tab PO Q6HP PRN #20 tab PRN Reason: Pain Followup: Soren Carter MD [ACTIVE - CAN ADMIT] - Time spent managing pt's care (in minutes): 40
[2019-11-10 13:52] VITALS: BP 150/64; TEMP 97.9
[2019-11-10] MEDS ORDERED: ZOLPIDEM TARTRATE 10 MG TABLET PO SCH (21:00)
[2019-11-10] MEDS ORDERED: ENSURE ENLIVE 237 ML CAN PO SCH (21:00)
--- NOTE | 2019-11-12 07:38 | EKG ---
Test Date: 2019-11-09 Test Time: 01:00:22 Cheesemaking Laborer: YOBANI MEASUREMENT RESULTS: Intervals: Rate: 48 AR: 196 QRSD: 98 QT: 534 QTc: 477 Bellamy: P: 99 AR: 196 QRS: 67 T: 64 INTERPRETIVE STATEMENTS: Marked sinus bradycardia with sinus arrhythmia Nonspecific ST abnormality Abnormal ECG Compared to ECG 03/02/2019 13:03:02 ST (T wave) deviation now present Electronically Signed On 11-12-19 07:33:08 CDT by Soren Carter
== END 2019-11-10 14:32 | disposition home or self-care (01) ==
LOC: ER 23:09 → ERHOLD 11-09 06:44 → 2ND 11-09 07:19
PROVIDERS: ADMIT Internal Medicine; ATTEND Family Medicine
DX: I48.20 Chronic atrial fibrillation, unspecified (principal); K21.9 Gastro-esophageal reflux disease without esophagitis; M54.9 Dorsalgia, unspecified; G89.29 Other chronic pain; Z11.59 Encounter for screening for other viral diseases; E78.5 Hyperlipidemia, unspecified; I10 Essential (primary) hypertension; I07.1 Rheumatic tricuspid insufficiency; J98.4 Other disorders of lung; I34.0 Nonrheumatic mitral (valve) insufficiency; I51.7 Cardiomegaly; R94.31 Abnormal electrocardiogram [ECG] [EKG]; R00.1 Bradycardia, unspecified; Z79.01 Long term (current) use of anticoagulants; Z79.899 Other long term (current) drug therapy; Z95.2 Presence of prosthetic heart valve; Z82.49 Family history of ischemic heart disease and other diseases of the circulatory system; Z79.82 Long term (current) use of aspirin
CPT/HCPCS: 93005; 93306; 85025 ×2; 80048 ×2; 36415 ×2; 83735; 85610; 80061; 80076; 84484 ×3; 83880; 71045; 94760 ×3; 96374; 99285; U0002; J3010; J1170 ×5; G0378 ×3

== ENCOUNTER 2020-03-07 19:36 | Emergency (ER) | payer OTHER ==
--- OUTSIDE RECORDS SUMMARY | 2020-03-07 19:40 | XMS REPORT | Summary of Care ---
:1955 Author Organization [facility] Address [address] [place] [id number] Care Team Providers Name Role Phone Nurse, Anticoag Unavailable Unavailable Ceasar Dobson Primary Care Provider Reason for Visit Reason Comments LAB WORK Auth/Cert Status Reason Specialty Diagnoses / Procedures Referred By C ontact Referred To Contact Phlebotomy Diagnoses Atrial flutter, unspecified type Atrial flutter, unspecified type Adc Pob Lab Draw Procedures POCT PT/INR-ANTICOAG PT/INR Professional [facility] Building [address] [place] [address] , [address] [place] [address] Phone: Fax: Encounter Details Date Type Department Care Team Description 12/17/2019 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 [facility] SyJamaica MD [address] [place] [address] Atrial flutter, Professional Office Pob, Adc Lab Main unspecified type Building Phlebotomy Lab Professional [facility] Building [address] [place] [address] , [address] [place] [address] Allergies Active Allergy Reactions Severity Noted Date Comments Morphine Shortness of Breath High 04/29/2006 documented as of this encounter (statuses as of 12/17/2019) Medications Medication Sig Dispensed Refills Start Date [...] Take 1 tablet by 30 tablet 1 12/01/2019 Active tabletIndications: mouth every Atrial flutter, evening. 2 mg 4 unspecified type days/week and 1 mg 3 day/week documented as of this encounter (statuses as of 12/17/2019) Active Problems Problem Noted Date Mixed hyperlipidemia 12/02/2017 Essential hypertension 12/02/2017 Anticoagulated 12/02/2017 Coronary artery disease involving shoshone-bannock coronary delgado ry of shoshone-bannock heart 12/02/2017 without angina pectoris Coronary artery disease involving shoshone-bannock heart without angina pectoris, 06/04/2017 unspecified vessel or lesion type Atrial flutter 07/16/2016 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] 02/10/2016 Chest pain with high risk for cardiac etiology 016 documented as of this encounter (statuses as of 12/17/2019) Social History Tobacco Use Types Packs/Day Years Used Date Never Smoker Smokeless Tobacco: Never Used Sex Assigned at Date Recorded Not on file documented as of this encounter Last Filed Vital Signs Not on filedocumented in this encounter Nursing Notes Jocelin Rodriguez - 12/17/2019 11:00 AM CDT Venipuncture collection performed by clean technique on the left forearm(s). Total of 1 attempts were made. Slight pressure and a bandage/dressing were applied to the site(s). The patient experienced no complications. The following specimens were processed according to instructions and sent to [facility] per lab order on 12/17/19: 1 LT BLUE SST RED LAV PPT DK GREEN (LiHep) DK GREEN (SodH) KONG DK BLUE (K2) DK BLUE (S) ACD Blood Culture NIPT/NTD documented in this encounter Plan of Treatment Name Type Priority Associated Diagnoses Date/Ti me PROTHROMBIN TIME / INR LAB Routine Atrial flutter, 10:58 AM CDT unspecified type Health Maintenance Due Date Last Done Comments HEPATITIS C (HCV) SCREEN 1955 Depression Screening 1965 DTaP,Tdap,and Td Vaccines (1 - Tdap) 1972 COLON CANCER SCREENING FIT DNA EVERY 3 YEARS 2003 COLON CANCER SCREENING SIGMOIDOSCOPY EVERY 5 YEARS 2003 COLONOSCOPY 2003 Zoster Recombinant Vaccine (SHINGRIX) (1 of 2) 2003 COLON CANCER SCREENING ANNUAL FIT/FOBT 02/05/2017 6 Colorectal Cancer Screening 02/05/2017 Medicare Wellness Visit 2018 Osteoporosis Screening 2018 PNEUMOCOCCAL VACCINES 65+ (1 of 1 - PPSV23) 2018 INFLUENZA VACCINE (#1) 2019 Breast Cancer Screening (MAMMOGRAM) 10/29/2020 10/30/2019 documented as of this encounter Results Not on filedocumented in this encounter Visit Diagnoses Diagnosis Atrial flutter, unspecified type documented in this encounter Insurance Payer Benefit Plan / Subscriber ID Effective Phone Address T ype Group Dates [facility] [id number] 2018-Prese Medic are Adv HEALTHCARE - HEALTHCARE DUAL [place] MANAGED COMPLETE O MEDICARE [place] [place] [id number] 2013-Prese Medicaid HEALTHCARE COMM PLUS nt PLAN - MANAGED MEDICAID documented as of this encounter
--- OUTSIDE RECORDS SUMMARY | 2020-03-07 19:40 | XMS REPORT | Summary of Care ---
:1955 Author Organization [facility] Address [address] [place] [address] Care Team Providers Name Role Phone Nurse, Alex Unavailable Unavailable Ceasar Dobson Primary Care Provider Reason for Visit Reason Comments Anticoagulation Encounter Details Date Type Department Care Team Description 12/17/2019 Telephone [facility] Cardiology- Catrina Dan MD Anticoagulation [place] [address] [address] [place] [address] [place] [address] [phone] Allergies Active Allergy Reactions Severity Noted Date [...] 2 mg Take 1 30 tablet 1 12/17/2019 Activ e tabletIndications: tablet by Atrial flutter, mouth every unspecified type evening. 2 mg 3 days/week and 1 mg 4 day/week warfarin 2 mg Take 1 30 tablet 1 12/01/2019 12/17/2019 Disc ontinued tabletIndications: tablet by Atrial flutter, mouth every unspecified type evening. 2 mg 4 days/week and 1 mg 3 day/week documented as of this encounter (statuses as of 12/17/2019) Active Problems Problem Noted Date Mixed hyperlipidemia 12/02/2017 Essential hypertension 12/02/2017 Anticoagulated 12/02/2017 Coronary artery disease involving [place] coronary delgado ry of [place] heart 12/02/2017 without angina pectoris Coronary artery disease involving [place] heart without angina pectoris, 06/04/2017 unspecified vessel [...] Signs Not on filedocumented in this encounter Miscellaneous Notes Telephone Encounter - Carmen Reyes RN - 12/17/2019 4:14 PM CDTPatient notified of results/recommendations, understanding was verbalized via teach back. INR 3.6. Hold Warfarin for 2 days. Then change to 2 mg 3 days a week and 1 mg 4 days a wk (alternating). INR 2 wks. elephone Encounter - [place] Dan MD - 12/17/2019 12:40 PM CDTINR 3.6. Hold Warfarin for 2 days. Then change to 2 mg 3 days a week and 1 mg 4 days a wk (alternating). INR 2 wks. documented in this encounter Plan of Treatment [...] ID Effective Phone Address T ype [facility] [id number] 2018-Prese Medic are Adv HEALTHCARE - HEALTHCARE DUAL nt H MO MANAGED COMPLETE O MEDICARE [place] [place] [id number] 2013-Prese Medicaid HEALTHCARE COMM PLUS nt PLAN - MANAGED MEDICAID documented as of this encounter
--- OUTSIDE RECORDS SUMMARY | 2020-03-07 19:40 | XMS REPORT | Summary of Care ---
:1955 Author Organization [facility] Address [address] [place] [address] Care Team Providers Name Role Phone Nurse, Alex Unavailable Unavailable Ceasar Dobson Primary Care Provider Reason for Visit Reason Comments LAB WORK Auth/Cert Status Reason Specialty Diagnoses / Procedures Referred By C ontact Referred To Contact Phlebotomy Diagnoses Atrial flutter, unspecified type Adc Pob Lab Draw Procedures pt inr Professional [facility] Building [address] [place] [address] , [address] [place] [address] Phone: Fax: Encounter Details Date Type Department Care Team Description 01/11/2020 Apprenticeship [facility] [address] [facility] [address] [place] [address] Atrial flutter, Professional Office Pob, Adc Lab Main unspecified type Building Phlebotomy Lab [facility] Building [address] [place] [address] , [address] [place] [address] Allergies Active Allergy Reactions Severity Noted Date Comments Morphine Shortness of Breath High 04/29/2006 documented as of this encounter (statuses as of 01/11/2020) Medications Medication Sig Dispensed Refills Start Date [...] Take 1 tablet by 30 tablet 1 12/17/2019 Active tabletIndications: mouth every Atrial flutter, evening. 2 mg 3 unspecified type days/week and 1 mg 4 day/week documented as of this encounter (statuses as of 01/11/2020) Active Problems Problem Noted Date Mixed hyperlipidemia 12/02/2017 Essential hypertension 12/02/2017 Anticoagulated 12/02/2017 Coronary artery disease involving [place] coronary delgado ry of [place] heart 12/02/2017 without angina pectoris Coronary artery disease involving [place] heart without angina pectoris, 06/04/2017 unspecified vessel or lesion type Atrial flutter 07/16/2016 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] 02/10/2016 Chest pain with high risk for cardiac etiology 016 documented as of this encounter (statuses as of 01/11/2020) Social History Tobacco Use Types Packs/Day Years Used Date Never Smoker Smokeless Tobacco: Never Used Sex Assigned at Date Recorded Not on file COVID-19 Exposure Response Date Recorded In the last month, have you been in contact with No / Unsure 01/11/2020 12:41 PM CDT someone who 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 documented as of this encounter Last Filed Vital Signs Not on filedocumented in this encounter Nursing Notes Shante Jacobsen - 01/11/2020 12:45 PM CDT Venipuncture collection performed by clean technique on the right anticubitus. Total of 1 attempts were made. Slight pressure and a bandage/dressing were applied to the site(s). The patient experiencedno complications. The following specimens were processed according to instructions and sent to [facility] laboratories per lab order on : 1 LT BLUE SST RED LAV PPT DK GREEN (LiHep) DK GREEN (SodH) KONG DK BLUE (K2) DK BLUE (S) ACD Blood Culture NIPT/NTD documented in this encounter Plan of Treatment Name Type Priority Associated Diagnoses Date/Ti me PROTHROMBIN TIME / INR LAB Routine Atrial flutter, 12:59 PM CDT unspecified type Health Maintenance Due Date [...] Subscriber ID Effective Phone Address T e [facility] [id number] 2018-Prese Medic are Adv HEALTHCARE - HEALTHCARE DUAL nt H MO MANAGED COMPLETE O MEDICARE [place] [place] [id number] 2013-Prese Medicaid HEALTHCARE COMM PLUS nt PLAN - MANAGED MEDICAID documented as of this encounter
--- OUTSIDE RECORDS SUMMARY | 2020-03-07 19:40 | XMS REPORT | Summary of Care ---
:1955 Author Organization [facility] Address [address] [place] [address] Care Team Providers Name Role Phone Nurse, Alex Unavailable Unavailable Ceasar Dobson Primary Care Provider Reason for Visit Reason Comments Anticoagulation Results Encounter Details Date Type Department Care Team Description 01/12/2020 Telephone [facility] Roger Dan MD Anticoagulation; and Clinics [address] [place] [address] [facility] [address] [place], [place] [address] [phone] Allergies Active Allergy Reactions Severity Noted Date Comments Morphine Shortness of Breath High 04/29/2006 documented as of this encounter (statuses as of 01/13/2020) Medications Medication Sig Dispensed Refills Start Date [...] as of this encounter (statuses as of 01/13/2020) Active Problems Problem Noted Date Mixed hyperlipidemia 12/02/2017 Essential hypertension 12/02/2017 Anticoagulated 12/02/2017 Coronary artery disease involving [place] coronary delgado ry of [place] heart 12/02/2017 without angina pectoris Coronary artery disease involving [place] heart without angina pectoris, 06/04/2017 unspecified vessel or lesion type Atrial flutter 07/16/2016 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] 02/10/2016 Chest pain with high risk for cardiac etiology 016 documented as of this encounter (statuses as of 01/13/2020) Social History Tobacco Use Types Packs/Day Years [...] Telephone Encounter - Carmen Reyes RN - 01/13/2020 10:49 AM CDTPatient notified of results/recommendations, understanding was verbalized via teach back. Telephone Encounter - Meaghan Vasquez RN - 01/12/2020 3:08 PM CDTAttempted to call patient to inform. No answer. Message left to return call to clinic. Telephone Encounter - Dickson Avalos - 01/12/2020 2:45 PM CDTPatient calling to hear blood work results. Please advise. elephone Encounter - [place] Dan MD - 01/12/2020 8:29 AM CDTINR is better but still bit high 3.2. Change to 2 mg 2 days a week and 1 mg 5 days a wk. INR 2-3 wks. documented in this encounter Plan of [...] Effective Phone Address T e Group Dates [facility] [id number] 2018-Prese Medic are Adv HEALTHCARE - HEALTHCARE DUAL nt H MO MANAGED COMPLETE O MEDICARE [place] [place] [id number] 2013-Prese Medicaid HEALTHCARE COMM PLUS nt PLAN - MANAGED MEDICAID documented as of this encounter
--- OUTSIDE RECORDS SUMMARY | 2020-03-07 19:40 | XMS REPORT | Summary of Care ---
:1955 Author Organization [facility] Address [address] [place] [address] Care Team Providers Name Role Phone Nurse, Anticowillie Unavailable Unavailable Arvin Dobson Primary Care Provider Reason for Visit Reason Comments Refill Request Encounter Details Date Type Department Care Team Description 11/24/2019 Refill [facility] Cardiology- Catrina Dan MD Refill Request [place] [address] [facility] 146 [facility], [address] [place] [address] [place] [address] [phone] Allergies Active Allergy Reactions Severity Noted Date Comments Morphine Shortness of Breath High 04/29/2006 documented as of this encounter (statuses as of 01/01/2020) Medications Medication Sig Dispensed Refills Start Date [...] mg Take 1 30 tablet 1 10/05/2019 11/27/2019 Disc ontinued tabletIndications: tablet by Atrial flutter, mouth every unspecified type evening. 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 Notified patient that we need current INR results as her last INR was high. Advised MD had recommended to recheck her INR late October. Patient states that she still has some coumadin left. Patient states that she will try to get her labs done tomorrow. Informed her thatonce we get the labs, we will send a script in if there is no changes to be made. Patient verbalized understanding. documented in this encounter Plan of Treatment [...] ID Effective Phone Address T e Group [facility] [id number] 2018-Presarvin Medic are Adv HEALTHCARE - HEALTHCARE DUAL nt H MO MANAGED COMPLETE O MEDICARE [place] [place] [id number] 2013-Prese Medicaid HEALTHCARE COMM PLUS nt PLAN - MANAGED MEDICAID documented as of this encounter
--- OUTSIDE RECORDS SUMMARY | 2020-03-07 19:40 | XMS REPORT | Summary of Care ---
:1955 Author Organization [facility] Address [address] [place] [address] Care Team Providers Name Role Phone Nurse, Anticowillie Unavailable Unavailable Ceasar Dobson Primary Care Provider Reason for Visit Reason Comments Refill Request Encounter Details Date Type Department Care Team Description 01/21/2020 Refill [facility] Cardiology- Catrina Dan MD Refill Request [place] [address] [facility] 146 [facility], [address] [place] [address] [place] [address] [phone] Allergies Active Allergy Reactions Severity Noted Date Comments Morphine Shortness of Breath High 04/29/2006 documented as of this encounter (statuses as of 01/22/2020) Medications Medication Sig Dispensed Refills Start Date [...] (700 0 08/03/2016 Active mg/patch) patch warfarin 2 mg Take 1 30 tablet 1 12/17/2019 Activ e tabletIndications: tablet by Atrial flutter, mouth every unspecified type evening. 2 mg 3 days/week and 1 mg 4 day/week atorvastatin 40 mg Take 1 30 tablet 0 01/22/2020 Active tabletIndications: tablet by Mixed hyperlipidemia mouth at bedtime. sotaloL 80 mg tablet Take 1 60 tablet 0 01/22/2020 Active tablet by mouth 2 (two) times daily. atorvastatin 40 mg Take 1 90 tablet 1 07/31/2019 Discontinued tabletIndications: tablet by 0 ( Reorder) Mixed hyperlipidemia mouth at bedtime. sotalol 80 mg tablet Take 1 60 tablet 5 07/31/2019 01/22/20 2 Discontinued tablet by 0 (Reorder) mouth 2 (two) times daily. 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] 02/10/2016 Chest pain with high risk for cardiac etiology 016 documented as of this encounter (statuses as of 01/22/2020) Social History Tobacco Use Types Packs/Day Years [...] filedocumented in this encounter Visit Diagnoses Diagnosis Mixed hyperlipidemia documented in this encounter Insurance Payer Benefit Plan / Subscriber ID Effective Phone Address T ype Group Dates [facility] [id number] 2018-Prese Medic are Adv HEALTHCARE - HEALTHCARE DUAL nt H MO MANAGED COMPLETE HMO MEDICARE [place] [place] [id number] 2013-Prese Medicaid HEALTHCARE COMM PLUS nt PLAN - MANAGED MEDICAID documented as of this encounter
--- OUTSIDE RECORDS SUMMARY | 2020-03-07 19:40 | XMS REPORT | Continuity of Care Document ---
:1955 Author Organization [facility] t Address [address] [place] [address] Care Team Providers Name Role Phone Sy LOVELL Attending Clinician Pob, Lab Main Attending Clinician Unavailable Radiology Attending Clinician Unavailable Doctor Unassigned, Name Attending Clinician Unavailable 1, Lab Attending Clinician Unavailable Problems This patient has no known problems. Allergies, Adverse Reactions, Alerts This patient has no known allergies or adverse reactions. Medications This patient has no known medications. Procedures This patient has no known procedures. Encounters Start End Encounter Admission Attending Care Care Encounter Source Date/Time Date/Time Type Type Clinicians Facility Department ID 2020-03-01 2020-03-01 Refill Sy NJKALEIGH [id number] 00:00:00 00:00:00 Jamacia Blackman [id number] [place] 4.2.7.2.686 [facility] [phone] [address] 2020-02-18 2020-02-18 Telephone Shahid Dan [id number] 00:00:00 00:00:00 [place] [facility] [id number] s and [id number] Adult [phone] [address] [facility] 2020-02-17 2020-02-17 Shaper Set Up Operator Andre Osei [facility] [id number] 09:15:01 09:30:01 Visit Lab Main [place] [id number] [place] [id number] Professio [phone] [address] 2020-02-11 2020-02-11 Refill [facility] [id number] 00:00:00 00:00:00 Rogerzaheer [place] [id number] [place] 4.2.7.2.686 Professio [phone] [address] 2020-01-21 2020-01-21 Refill [facility] [id number] 00:00:00 00:00:00 [place] Yehuda [id number] [place] 4.2.7.2.686 Professio [phone] [address] 2020-01-12 2020-01-12 Telephone JOHANN Dan [id number] 00:00:00 00:00:00 [place] MIKE [id number] [facility] 4.2.7.2.686 [phone] [facility] 2020-01-11 2020-01-11 Shaper Set Up Operator Farnaz, [facility] [id number] 12:41:31 12:56:31 Visit Lab Main [place] [id number] [place] 4.2.7.2.686 Professio [phone] [address] 2019-12-17 2019-12-17 Shaper Set Up Operator Farnaz, [facility] [id number] 10:54:25 11:09:25 Visit Lab Main [place] [id number] [place] 4.2.7.2.686 Professio [phone] [address] 2019-12-17 2019-12-17 Telephone Shahid Dan [id number] 00:00:00 00:00:00 [place] [facility] [id number] s and 4.2.7.2.686 Adult [phone] [address] 2019-11-30 2019-11-30 Telephone Sy [facility] [id number] 00:00:00 00:00:00 [place] 350.1.13.10 [place] 4.2.7.2.686 Professio [phone] [facility] 2019-11-26 2019-11-26 Shaper Set Up Operator Farnaz [facility] [id number] 12:40:21 12:55:21 Visit Lab Main [place] [id number] [place] 4.2.7.2.686 Professio [phone] [address] 2019-11-26 2019-11-26 [facility] [id number] 00:00:00 00:00:00 Catrinamerzaheer [place] 350.1.13.10 [place] 4.2.7.2.686 Professio [phone] [address] 2019-11-24 2019-11-24 Refill [facility] 1.2.840.114 [id number] 00:00:00 00:00:00 [place] Campton 350.1.13.10 [place] 4.2.7.2.686 Professio [phone] [address] 2019-10-30 2019-10-30 Hospital Radiology [facility] [id number] 10:09:00 23:59:00 Encounter Yehuda 350.1.13.10 [place] 4.2.7.2.686 [place] [phone] 800 2019-10-30 2019-10-30 Orders Doctor WILLS 1.2.840.114 [id number] 00:00:00 00:00:00 Only Unassigned, MIKE 350.1.13.10 [place] [facility] [phone] 009 2019-10-20 2019-10-20 Shaper Set Up Operator Farnaz, [facility] 1.2.840.114 [id number] 09:34:52 09:49:52 Visit Lab Main [place] [id number] [place] 4.2.7.2.686 Profess[place] [phone] [address] 2019-10-20 2019-10-20 Orders Doctor WILLS [id number] 00:00:00 00:00:00 Only Unassigned, MIKE 350.1.13.10 [place] [facility] 4.2.7.2.686 [id number] [facility] 2019-10-20 2019-10-20 Telephone [facility], [facility] [id number] 00:00:00 00:00:00 [place] Blackman 350.1.13.10 [place] 4.2.7.2.686 Professio [phone] [address] 2019-09-30 2019-09-30 Shaper Set Up Operator Farnaz, [facility] 1.2.840.114 [id number] 08:27:19 08:42:19 Visit Lab Main [place] 350.1.13.10 [place] 4.2.7.2.686 Profess[place] [phone] [address] 2019-09-30 2019-09-30 Telephone [facility], [facility] [id number] 00:00:00 00:00:00 [place] Blackman 350.1.13.10 [place] 4.2.7.2.686 Professio [phone] [address] 2019-09-08 2019-09-08 Telemedici [facility] 1.2.840.114 [id number] 08:02:58 08:17:58 ne Visit [place] Blackman 350.1.13.10 [place] 4.2.7.2.686 Professio [phone] [address] 2019-09-03 2019-09-03 Shaper Set Up Operator Farnaz, [facility] 1.2.840.114 [id number] 08:53:22 09:08:22 Visit Lab Main [place] 350.1.13.10 [place] 4.2.7.2.686 Profess[place] [phone] [address] 2019-09-03 2019-09-03 Telephone [facility] [id number] 00:00:00 00:00:00 [place] Campton 350.1.13.10 [place] 4.2.7.2.686 Professio [phone] [address] 2019-09-02 2019-09-02 Telephone [facility] [id number] 00:00:00 00:00:00 Qiangjun [place] 350.1.13.10 [place] 4.2.7.2.686 Professio [phone] [address] 2019-09-02 2019-09-02 Telephone [facility], [facility] [id number] 00:00:00 00:00:00 Qiangjun [place] 350.1.13.10 [place] 4.2.7.2.686 Professio [phone] [address] 2019-08-26 2019-08-26 Refill [facility], [facility] 1.2.840.114 [id number] 00:00:00 00:00:00 Qiangjun [place] 350.1.13.10 [place] 4.2.7.2.686 Professio [phone] [address] 2019-07-31 2019-07-31 Refill [facility] 1.2.840.114 [id number] 00:00:00 00:00:00 Qiangjun [place] 350.1.13.10 [place] 4.2.7.2.686 Professio [phone] [address] 2019-07-24 2019-07-24 Shaper Set Up Operator 1, Adc Lab [facility] 1.2.840.114 [id number] 11:42:42 11:57:42 Visit [place] 350.1.13.10 [place] 4.2.7.2.686 [place] [phone] [facility] 2019-07-24 2019-07-24 Telephone [facility] [id number] 00:00:00 00:00:00 [place] [facility] 350.1.13.10 [place] 4.2.7.2.686 [place] [phone] [place] [address] Office [facility] 2019-06-30 2019-06-30 Refill [facility] 1.2.840.114 [id number] 00:00:00 00:00:00 Qiangjun [place] 350.1.13.10 [place] 4.2.7.2.686 Professio [phone] [address] 2019-04-27 2019-04-27 Telephone [facility] [id number] 00:00:00 00:00:00 Jamacia Blackman 350.1.13.10 [place] 4.2.7.2.686 Profess[place] [phone] [facility] Building Results This patient has no known results.
--- OUTSIDE RECORDS SUMMARY | 2020-03-07 19:41 | XMS REPORT | Summary of Care ---
:1955 Author Organization [facility] Address [address] [place] [address] Care Team Providers Name Role Phone Nurse, Anticoag Unavailable Unavailable Ceasar Dobson Primary Care Provider Reason for Visit Reason Comments Refill Request Encounter Details Date Type Department Care Team Description 02/11/2020 Refill [facility] Cardiology- Catrina Dan MD Refill Request [place] 146 [facility] 146 [facility], [address] [place] [address] [place] [address] [phone] Allergies Active Allergy Reactions Severity Noted Date Comments Morphine Shortness of Breath High 04/29/2006 documented as of this encounter (statuses as of 02/12/2020) Medications Medication Sig Dispensed Refills Start Date [...] mg/patch) patch atorvastatin 40 mg Take 1 30 tablet 0 01/22/2020 Active tabletIndications: tablet by Mixed hyperlipidemia mouth at bedtime. sotaloL 80 mg tablet Take 1 60 tablet 0 01/22/2020 Active tablet by mouth 2 (two) times daily. warfarin 2 mg Take 1 30 tablet 1 02/12/2020 Activ e tabletIndications: tablet by Atrial flutter, mouth every unspecified type evening. 2 mg 3 days/week and 1 mg 4 day/week warfarin 2 mg Take 1 30 tablet 1 12/17/2019 Disco ntinued tabletIndications: tablet by 0 ( Reorder) Atrial flutter, mouth every unspecified type evening. 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 documented in this encounter Plan of Treatment Date Type Specialty Care Team Description 02/24/2020 Office Visit Cardiology [place] Dan M D [address] [place] [address] [phone] Health Maintenance Due Date Last Done Comments [...] Effective Phone Address T ype Group Dates [facility] [id number] 2018-Prese Medic are Adv HEALTHCARE - HEALTHCARE DUAL nt H MO MANAGED COMPLETE O MEDICARE [place] [place] [id number] 2013-Prese Medicaid HEALTHCARE COMM PLUS nt PLAN - MANAGED MEDICAID documented as of this encounter
--- OUTSIDE RECORDS SUMMARY | 2020-03-07 19:41 | XMS REPORT | Summary of Care ---
:1955 Author Organization [facility] Address [address] [place] [address] Care Team Providers Name Role Phone Nurse, Alex Unavailable Unavailable Ceasar Dobson Primary Care Provider Reason for Visit Reason Comments LAB WORK Auth/Cert Status Reason Specialty Diagnoses / Procedures Referred By C ontact Referred To Contact Phlebotomy Diagnoses PAF (paroxysmal atrial fibrillation) Adc Pob Lab Draw Procedures PT INR Professional Office Building [address] [place] [address] , [address] [place] [address] Phone: Fax: Encounter Details Date Type Department Care Team Description 02/17/2020 Supervisor Mixing Visit [facility] Jamaica Dan MD [address] [facility] [address] [place] [address] Atrial flutter, Professional Office Pob, Adc Lab Main unspecified type Building Phlebotomy Lab Professional Office Building [address] [place] [address] , [address] [place] [address] Allergies Active Allergy Reactions Severity Noted Date Comments Morphine Shortness of Breath High 04/29/2006 documented as of this encounter (statuses as of 02/17/2020) Medications Medication Sig Dispensed Refills Start Date [...] atorvastatin 40 mg Take 1 tablet by 30 tablet 0 01/22/2020 Active tabletIndications: Mixed mouth at hyperlipidemia bedtime. sotaloL 80 mg tablet Take 1 tablet by 60 tablet 0 01/22/2020 Active mouth 2 (two) times daily. warfarin 2 mg Take 1 tablet by 30 tablet 1 02/12/2020 Active tabletIndications: mouth every Atrial flutter, evening. 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 Total of 1 attempts were made. Slight pressure and a bandage/dressing were applied to the site(s). The patient experienced no complications. The following specimens were processed according to instructions and sent to [facility] laboratories per lab order on today: LT BLUE 1 SST RED LAV PPT DK GREEN (LiHep) DK GREEN (SodH) KONG DK BLUE (K2) DK BLUE (S) ACD Blood Culture NIPT/NTD FIELD PUMPER documented in this encounter Plan of Treatment Date Type Specialty Care Team Description 02/24/2020 Office Visit Cardiology Jamaica Dan M D [address] [facility] [address] [place] [id number] [phone] Health Maintenance Due Date Last Done Comments [...] 10/29/2020 10/30/2019 documented as of this encounter Procedures Procedure Name Priority Date/Time Associated Diagnosis Comme nts PROTHROMBIN TIME / Routine 02/17/2020 9:24 Atrial flutter, Re sults for this INR AM OIL FIELD PUMPER unspecified type procedure a re in the results section. documented in this encounter Results PROTHROMBIN TIME / INR (02/17/2020 9:24 AM OIL FIELD PUMPER) PROTIME PATIENT 33.5 (H) 12.0 - 14.7 [facility] LABORATORY INR 3.5Comment: Normal [facility] INR <1.1; Warfarin HOSPITAL Therapeutic range LABORATORY 2.0 to 3.0 or 2.5 to 3.5, depending upon the indications. Specimen Blood Performing Organization Address City/State/Zipcode Phone Number [facility] CLIA: [id number] [place] [address] documented in this encounter Visit Diagnoses Diagnosis Atrial flutter, unspecified type documented in this encounter Insurance Payer Benefit Plan / Subscriber ID Effective Phone Address T ype Group Dates [facility] [id number] 2018-Prese Medic are Adv HEALTHCARE - HEALTHCARE DUAL nt H MO MANAGED COMPLETE HMO MEDICARE [facility] STAR [id number] 2013-Prese Medicaid HEALTHCARE COMM PLUS nt PLAN - MANAGED MEDICAID documented as of this encounter
--- OUTSIDE RECORDS SUMMARY | 2020-03-07 19:41 | XMS REPORT | Summary of Care ---
:1955 Author Organization [facility] Address [address] [place] [address] Care Team Providers Name Role Phone Nurse, Anticoag Unavailable Unavailable Olya, Ceasar Primary Care Provider Reason for Visit Reason Comments Refill Request lipitor, sotalol Encounter Details Date Type Department Care Team Description 03/01/2020 Refill [facility] Cardiology- Catrina Dan MD Refill Request [address] (lipitor, sotalol ) [address] [place] [address], [address] [place] [address] [place] [address] [phone] Allergies Active Allergy Reactions Severity Noted Date Comments Morphine Shortness of Breath High 04/29/2006 documented as of this encounter (statuses as of 03/01/2020) Medications Medication Sig Dispensed Refills Start Date [...] 2 mg Take 1 30 tablet 1 02/18/2020 Activ e tabletIndications: tablet by Atrial flutter, mouth every unspecified type evening. 2 mg 1 days/week and 1 mg 6 day/week sotaloL 80 mg tablet Take 1 60 tablet 5 03/01/2020 Active tablet by mouth 2 (two) times daily. atorvastatin 40 mg Take 1 30 tablet 5 03/01/2020 Active tabletIndications: tablet by Mixed hyperlipidemia mouth at bedtime. atorvastatin 40 mg Take 1 30 tablet 0 01/22/2020 Discontinued tabletIndications: tablet by 0 ( Reorder) Mixed hyperlipidemia mouth at bedtime. sotaloL 80 mg tablet Take 1 60 tablet 0 01/22/2020 03/01/20 2 Discontinued tablet by 0 (Reorder) mouth 2 (two) times daily. 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 Refill sent to pharmacy of choice. Patient is compliant as per [facility] Cardiology Protocol. 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
--- OUTSIDE RECORDS SUMMARY | 2020-03-07 19:41 | XMS REPORT | Summary of Care ---
:1955 Author Organization [facility] Address [address] [place] [address] Care Team Providers Name Role Phone Nurse, Alex Unavailable Unavailable Ceasar Dobson Primary Care Provider Reason for Visit Reason Comments Anticoagulation Encounter Details Date Type Department Care Team Description 02/18/2020 Telephone [facility] Cardiology- Catrina Dan MD Anticoagulation [place] [address] [address] [place] [address] [place] [address] [phone] Allergies Active Allergy Reactions Severity Noted Date Comments Morphine Shortness of Breath High 04/29/2006 documented as of this encounter (statuses as of 02/18/2020) Medications Medication Sig Dispensed Refills Start Date [...] 1 days/week and 1 mg 6 day/week warfarin 2 mg Take 1 30 tablet 1 02/12/2020 02/18/2020 Disc ontinued tabletIndications: tablet by Atrial flutter, mouth every unspecified type evening. 2 mg 3 days/week and 1 mg 4 day/week documented as of this encounter (statuses as of 02/18/2020) Active Problems Problem Noted Date Mixed hyperlipidemia 12/02/2017 Essential hypertension 12/02/2017 Anticoagulated 12/02/2017 Coronary artery disease involving [place] coronary delgado ry of [place] heart 12/02/2017 without angina pectoris Coronary artery disease involving [place] heart without angina pectoris, 06/04/2017 unspecified vessel or lesion type Atrial flutter 07/16/2016 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] 02/10/2016 Chest pain with high risk for cardiac etiology 016 documented as of this encounter (statuses as of 02/18/2020) Social History Tobacco Use Types Packs/Day Years Used Date Never Smoker Smokeless Tobacco: Never Used Sex Assigned at Date Recorded Not on file documented as of this encounter Last Filed Vital Signs Not on filedocumented in this encounter Miscellaneous Notes Telephone Encounter - Carmen Reyes RN - 02/18/2020 2:31 PM CSTPatients INR is 3.5 on 02/17/20. Verified current warfarin dose: 2 mg 4 day/week, 1 mg 3day/week. Dr. Dan recommends for patient to Change dose to 2 mg 1 day/week, 1 mg 6 day/week and recheck in 2-3weeks. Patient verbalized understanding via [employer]. 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 Change warfarin to 2 mg 1day a week and 1 mg 6days a wk. INR 2-3 wks. 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
[2020-03-07] MEDS ORDERED: MEPERIDINE HCL 25 MG/ML SYR ONE (21:15)
[2020-03-07] MEDS ORDERED: ONDANSETRON 4 MG/2 ML VIAL ONE (21:15)
[2020-03-07] MEDS ORDERED: NA CHLORIDE 0.9% 1,000 ML ONE (21:15)
[2020-03-07 21:36] LABS: Absolute Lymphocytes (CBC) 1.6 K/uL (0.7-4.9); Basophils % 1.5 % (0-1.3); Hematocrit 30.1 % (36.0-45.0); Lymphocytes % 26.9 % (15.3-44.8); MPV 8.8 fL (7.6-11.3); RBC Red Blood Cell Count 3.25 M/uL (3.86-4.86)
[2020-03-07 21:52] LABS: Protime INR 4.42
[2020-03-07 21:55] LABS: ALT/SGPT 22 U/L (12-78); AST/SGOT 20 U/L (15-37); Albumin 3.8 g/dL (3.4-5.0); Alkaline Phosphatase 110 U/L (45-117); BUN Blood Urea Nitrogen 9 mg/dL (7-18); Bicarbonate 34 mmol/L (21-32); Bilirubin Direct 0.1 mg/dL (0-0.2); Bilirubin Total 0.5 mg/dL (0.2-1.0); Glucose Level 87 mg/dL (74-106); Lipase 101 U/L (73-393); Magnesium 2.2 mg/dL (1.8-2.4); NT PRO-BNP 1104 pg/mL (<125); Potassium 3.7 mmol/L (3.5-5.1); Protein, Total 7.6 g/dL (6.4-8.2); Sodium Level 144 mmol/L (136-145); Troponin (Emerg Dept Use Only) < 0.02 ng/mL (0.0-0.045)
[2020-03-07] MEDS ORDERED: VITAMIN K (ADULT) 10 MG/ML ONE (22:29)
[2020-03-07] MEDS ORDERED: NA CHLORIDE 0.9% 100 ML ONE (22:35)
[2020-03-07 22:51] LABS: Urine Blood 1+ (NEG); Urine Glucose NEGATIVE (NEG); Urine Protein NEGATIVE (NEG); Urine Specific Gravity 1.015 (1.005-1.030)
[2020-03-08] MEDS ORDERED: MEPERIDINE HCL 25 MG/ML SYR ONE (00:02)
--- NOTE | 2020-03-08 00:57 | ER ---
Nurse's Notes [facility] Name: Michelle Saavedra Age: 64 yrs Sex: Female : 1955 Arrival Date: 03/07/2020 Time: 19:45 Bed 8 Private MD: Saurabh Dobson E Diagnosis: Chest pain. Degenerative arthritis neck and back. Coumadin toxicity. Thoracic aneurysm. Cholelithiasis Presentation: 03/07 20:02 Chief complaint: Patient states: Chest pressure and stomach feels bloated but I don't dm5 eat that much. I have been feeling bad for a couple of weeks but I was taking care of my dying so I couldn't come up here. Coronavirus screen: Client denies travel out of the [place] in the last 14 days. difficulty breathing, Client presents with at least one sign or symptom that may indicate coronavirus-19. Standard/surgical mask placed on the client. Ebola Screen: Patient negative for fever greater than or equal to 101.5 degrees Fahrenheit, and additional compatible Ebola Virus Disease symptoms Patient denies exposure to infectious person. Patient denies travel to an Ebola-affected area in the 21 days before illness onset. No symptoms or risks identified at this time. Initial Sepsis Screen: Does the patient meet any 2 criteria? No. Patient's initial sepsis screen is negative. Does the patient have a suspected source of infection? No. Patient's initial sepsis screen is negative. Risk Assessment: Do you want to hurt yourself or someone else? Patient reports no desire to harm self or others. Note pt states she has been depressed since her on 02/25. Onset of symptoms was February 2020. 20:02 Method Of Arrival: Ambulatory dm5 20:02 Acuity: JAKUB 3 dm5 Historical: - Allergies: 20:05 Morphine; dm5 20:05 Fentanyl; itching; dm5 - Immunization history:: Adult Immunizations up to date. - Social history:: Smoking status: Patient reports the use of cigarette tobacco products. Screenin:55 Abuse screen: Denies threats or abuse. Nutritional screening: No deficits noted. em Tuberculosis screening: No symptoms or risk factors identified. Fall Risk None identified. Assessment: 20:56 General: Appears in no apparent distress. Behavior is calm, cooperative, appropriate ea for age. Pain: Complains of pain in abdomen. Neuro: Level of Consciousness is awake, alert, obeys commands, Oriented to person, place, time. Cardiovascular: Patient's skin is warm and dry. Respiratory: Airway is patent Respiratory effort is even, unlabored, Respiratory pattern is regular, symmetrical. GI: Abdomen is non-distended. Derm: Skin is dry, Skin is normal, Skin temperature is warm. 22:30 Reassessment: Patient and/or family updated on plan of care and expected duration. Pain ea level reassessed. Patient is alert, oriented x 3, equal unlabored respirations, skin warm/dry/pink. 03/08 00:28 Reassessment: Patient and/or family updated on plan of care and expected duration. Pain ea level reassessed. Patient is alert, oriented x 3, equal unlabored respirations, skin warm/dry/pink. 00:46 Reassessment: Patient and/or family updated on plan of care and expected duration. Pain ea level reassessed. Patient is alert, oriented x 3, equal unlabored respirations, skin warm/dry/pink. Provider at bedside updating pt on plan of care. 01:00 Reassessment: Patient and/or family updated on plan of care and expected duration. Pain ea level reassessed. Patient is alert, oriented x 3, equal unlabored respirations, skin warm/dry/pink. Discharge instruction given to patient, verbalized the understanding of instruction. Pt left ED via wheelchair per ED staff. Pt family awaiting at [facility]. Vital Signs: 03/07 20:02 BP 171 / 60; Pulse 50; Resp 20; Temp 97.6; Pulse Ox 99% on R/A; Weight 48.08 kg; Height dm5 5 ft. 3 in. (160.02 cm); Pain 9/10; 21:26 BP 165 / 65; Pulse 54; Resp 20; Pulse Ox 98% on R/A; ea 03/08 00:47 BP 179 / 59; Pulse 55; Resp 18; Pulse Ox 100% on R/A; ea 03/07 20:02 Body Mass Index 18.78 (48.08 kg, 160.02 cm) dm5 ED Course: 03/07 19:45 Patient arrived in ED. am2 19:46 Saurabh Dobson MD is Private Physician. am2 20:05 Triage completed. dm5 20:39 David Merida MD is Attending Physician. pkl 20:47 Jaime Palacios, RN is Primary Nurse. em 20:55 Patient has correct armband on for positive identification. Bed in low position. Call em light in reach. Side rails up X2. Pulse ox on. NIBP on. 20:57 Arm band placed on right wrist. Patient placed in an exam room, on a stretcher, on ea pulse oximetry. 21:14 XRAY Chest (1 view) In Process Unspecified. EDMS 21:20 Inserted saline lock: 20 gauge in left antecubital area, using aseptic technique. Blood ea collected. 21:52 Notified ED physician of a critical lab result(s). INR 4.42, D-dimer 1225 Notified ca1 primary nurse of. 22:[address] Merida read trace positive. ea 22:45 CT C Spine In Process Unspecified. EDMS 23:01 CT Chest For PE Angio In Process Unspecified. EDMS 23:01 CT Abd/Pelvis - IV Contrast Only In Process Unspecified. EDMS 23:50 EKG done, by ED staff, reviewed by Jaime Palacios RN. em 11 00:58 No provider procedures requiring assistance completed. IV discontinued, intact, ea bleeding controlled, No redness/swelling at site. Pressure dressing applied. Administered Medications: 03/07 21:20 Drug: Zofran (Ondansetron) 4 mg Route: IVP; Site: left antecubital; ea 03/08 00:00 Follow up: Response: No adverse reaction ea 03/07 21:23 Drug: Demerol 25 mg {Note: rass 0.} Route: IVP; Site: left antecubital; ea 03/08 00:00 Follow up: Response: No adverse reaction; Pain is decreased ea 03/07 21: Drug: NS 0.9% 1000 ml Route: IV; Rate: 100 ml/hr; Site: left antecubital; ea : Drug: NS 0.9% 500 ml Route: IV; Rate: bolus; Site: left antecubital; ea 03/08 00:00 Follow up: Response: No adverse reaction; IV Status: Completed infusion; IV Intake: ea 500ml 03/07 22:31 Drug: Vitamin K1 10 mg, misc 10 mg Route: IV; Rate: 1 calculated rate; Site: left ea antecubital; 03/08 00:00 Follow up: Response: No adverse reaction; IV Status: Completed infusion ea 03/07 23:58 Drug: Demerol 25 mg Route: IVP; Site: left antecubital; ea 03/08 00:30 Follow up: Response: No adverse reaction; Pain is decreased; RASS: Alert and Calm (0) ea Intake: 00:00 IV: 500ml; Total: 500ml. ea Outcome: 00:56 Discharge ordered by . pkjared 00:58 Discharged to home ambulatory, with family. ea 00:58 Condition: stable 00:58 Discharge instructions given to patient, Instructed on discharge instructions, follow up and referral plans. Demonstrated understanding of instructions, follow-up care. 01:02 Patient left the ED. ea Signatures: Dispatcher [employer] Mary Mejia, RN RN [email or web address] David Merida MD MD pkl Munoz, Edgar RN RN Cadence Mullins Elena RN Radha Ochoa ea RN RN ca1 Corrections: (The following items were deleted from the chart) 00:59 00:58 Discharge instructions given to patient, Instructed on discharge instructions, ea follow up and referral plans. Demonstrated understanding of instructions, follow-up care, ea :59 00:58 Discharged to home ambulatory, ea ea
--- NOTE | 2020-03-08 00:57 | EDPHYS ---
Physician Documentation [facility] Name: Michelle Saavedra Age: 64 yrs Sex: Female : 1955 Arrival Date: 03/07/2020 Time: 19:45 Bed 8 Private MD: Saurabh Dobson E ED Physician David Merida HPI: 03/07 21:00 This 64 yrs old Female presents to ER via Ambulatory with complaints of pkl Abdominal Distention, Chest Pressure, Leg Pain - contusion. 21:00 The patient or guardian reports chest pain that is located primarily in the substernal pkl area. Onset: 2 week(s) ago. The pain does not radiate. Associated signs and symptoms: Pertinent positives: abdomen feels bloated. The chest pain is described as dull. Historical: - Allergies: 20:05 Morphine; dm5 20:05 Fentanyl; itching; dm5 - Immunization history:: Adult Immunizations up to date. - Social history:: Smoking status: Patient reports the use of cigarette tobacco products. ROS: 21:00 Eyes: Negative for injury, pain, redness, and discharge, ENT: Negative for injury, pkl pain, and discharge. 21:00 Neck: Positive for pain with movement. 21:00 Cardiovascular: Positive for chest pain, of the substernal. 21:00 Respiratory: Negative for cough, shortness of breath. 21:00 Abdomen/GI: Positive for abdominal distension. 21:00 Back: Negative for pain with movement. 21:00 : Negative for urinary symptoms. 21:00 MS/extremity: Negative for acute changes. 21:00 Skin: Negative for rash. 21:00 Neuro: Negative for altered mental status, loss of consciousness. Exam: 21:00 Head/Face: Normocephalic, atraumatic. Eyes: Pupils equal round and reactive to light, pkl extra-ocular motions intact. Lids and lashes normal. Conjunctiva and sclera are non-icteric and not injected. Cornea within normal limits. Periorbital areas with no swelling, redness, or edema. ENT: Nares patent. No nasal discharge, no septal abnormalities noted. Tympanic membranes are normal and external auditory canals are clear. Oropharynx with no redness, swelling, or masses, exudates, or evidence of obstruction, uvula midline. Mucous membranes moist. Neck: Trachea midline, no thyromegaly or masses palpated, and no cervical lymphadenopathy. Supple, full range of motion without nuchal rigidity, or vertebral point tenderness. No Meningismus. Chest/axilla: Normal chest wall appearance and motion. Nontender with no deformity. No lesions are appreciated. Cardiovascular: Regular rate and rhythm with a normal S1 and S2. No gallops, murmurs, or rubs. Normal PMI, no JVD. No pulse deficits. Respiratory: Lungs have equal breath sounds bilaterally, clear to auscultation and percussion. No rales, rhonchi or wheezes noted. No increased work of breathing, no retractions or nasal flaring. 21:00 Abdomen/GI: Inspection: mild distention, Palpation: abdomen is soft and non-tender, in all quadrants. 21:00 Back: Exam negative for acute changes. 21:00 : Exam negative for acute changes. 21:00 Musculoskeletal/extremity: Exam is negative for acute changes. 21:00 Skin: Exam negative for rash. 21:00 Neuro: Orientation: is normal, Mentation: is normal, Cranial nerves: grossly normal, Motor: is normal. Vital Signs: 20:02 BP 171 / 60; Pulse 50; Resp 20; Temp 97.6; Pulse Ox 99% on R/A; Weight 48.08 kg; Height dm5 5 ft. 3 in. (160.02 cm); Pain 9/10; 21:26 BP 165 / 65; Pulse 54; Resp 20; Pulse Ox 98% on R/A; ea 03/08 00:47 BP 179 / 59; Pulse 55; Resp 18; Pulse Ox 100% on R/A; ea 03/07 20:02 Body Mass Index 18.78 (48.08 kg, 160.02 cm) dm5 MDM: 03/07 20:39 Patient medically screened. pkl 22:11 Data reviewed: vital signs, nurses notes, lab test result(s), EKG, radiologic studies, pkl CT scan, plain films. ED course: PT 50.7, INR 4.42 Rectal exam done. Stool for occult blood ( Trace positive ). 03/08 00:39 ED course: Patient feeling better. Discussed lab and imaging studies with patient. pkl Advised to follow up with her Blasting Cap Assembler in 2 to 3 days. To hold her Coumadin for [address] Dan ( her Blasting Cap Assembler ) advise her on resuming the Coumadin . Patient understood instruction . 03/07 20:58 Order name: Basic Metabolic Panel; Complete Time: 21:59 pkl 03/07 20:58 Order name: CBC with Diff; Complete Time: 21:48 pkl 03/07 20:58 Order name: LFT's; Complete Time: 21:59 pkl 03/07 20:58 Order name: Magnesium; Complete Time: 21:59 pkl 03/07 20:58 Order name: NT PRO-BNP; Complete Time: 21:59 pkl 03/07 20:58 Order name: PT-INR; Complete Time: 21:55 pkl 03/07 20:58 Order name: Troponin (emerg Dept Use Only); Complete Time: 21:59 pkl 03/07 20:58 Order name: XRAY Chest (1 view) [facility] 03/07 20:58 Order name: D-Dimer; Complete Time: 21:55 pkl 03/07 20:58 Order name: Lipase; Complete Time: 21:59 pkl 03/07 21:47 Order name: Urine Dipstick--Ancillary (enter results); Complete Time: 23:31 tt3 03/07 22:16 Order name: CT C Spine pk 03/07 22:16 Order name: CT Chest For PE Angio [facility] 03/07 23:46 Order name: Troponin (emerg Dept Use Only); Complete Time: 00:39 ea 03/07 20:58 Order name: EKG; Complete Time: 20:59 pkl 03/07 20:58 Order name: Cardiac monitoring; Complete Time: 21:10 pk 03/07 20:58 Order name: EKG - Nurse/Tech; Complete Time: 21:10 pk 03/07 20:58 Order name: IV Saline Lock; Complete Time: 21:27 pkl 03/07 20:58 Order name: Labs collected and sent; Complete Time: 21:27 pkl 03/07 20:58 Order name: O2 Per Protocol; Complete Time: 21:10 pkl 03/07 20:58 Order name: O2 Sat Monitoring; Complete Time: 21:10 pkl 03/07 22:16 Order name: CT Abd/Pelvis - IV Contrast Only [facility] 03/07 23:46 Order name: EKG; Complete Time: 23:47 ea 03/07 23:46 Order name: EKG - Nurse/Tech; Complete Time: 23:54 ea Administered Medications: 03/07 21:20 Drug: Zofran (Ondansetron) 4 mg Route: IVP; Site: left antecubital; 03/08 00:00 Follow up: Response: No adverse reaction 03/07 21:23 Drug: Demerol 25 mg {Note: rass 0.} Route: IVP; Site: left antecubital; 03/08 00:00 Follow up: Response: No adverse reaction; Pain is decreased 03/07 21:25 Drug: NS 0.9% 1000 ml Route: IV; Rate: 100 ml/hr; Site: left antecubital; : Drug: NS 0.9% 500 ml Route: IV; Rate: bolus; Site: left antecubital; 03/08 00:00 Follow up: Response: No adverse reaction; IV Status: Completed infusion; IV Intake: ea 500ml 03/07 22:31 Drug: Vitamin K1 10 mg, misc 10 mg Route: IV; Rate: 1 calculated rate; Site: left ea antecubital; 03/08 00:00 Follow up: Response: No adverse reaction; IV Status: Completed infusion 03/07 23:58 Drug: Demerol 25 mg Route: IVP; Site: left antecubital; 03/08 00:30 Follow up: Response: No adverse reaction; Pain is decreased; RASS: Alert and Calm (0) Disposition: 03/08/20 00:56 Discharged to Home. Impression: Chest pain. Degenerative arthritis neck and back. Coumadin toxicity. Thoracic aneurysm. Cholelithiasis. - Condition is Stable. - Medication Reconciliation Form, Thank You Letter, Antibiotic Education, Prescription Opioid Use form. - Follow up: Private Physician; When: 2 - 3 days; Reason: Re-evaluation by your physician. - Problem is new. - Symptoms have improved. Signatures: Dispatcher [employer] Mary Mejia RN RN dm5 David Merida MD MD pkl Antunez, Elena, RN RN ea Corrections: (The following items were deleted from the chart) 01:02 00:56 03/08/2020 00:56 Discharged to Home. Impression: Chest pain. Degenerative ea arthritis neck and back. Coumadin toxicity. Thoracic aneurysm. Cholelithiasis. Condition is Stable. Forms are Medication Reconciliation Form, Thank You Letter, Antibiotic Education, Prescription Opioid Use. Follow up: Private Physician; When: 2 - 3 days; Reason: Re-evaluation by your physician. Problem is new. Symptoms have improved. pkl
--- NOTE | 2020-03-08 06:57 | RAD REPORT ---
EXAM DESCRIPTION: RAD - Chest Single View - 03/07/2020 9:14 pm CLINICAL HISTORY: CHEST PAIN, chest pressure COMPARISON: November 08 TECHNIQUE: AP portable chest image was obtained 03/07/2020 9:14 pm . FINDINGS: No focal mass or consolidation. Sternotomy wires are in place. Prominent interstitial rory ryan is present matching comparison. No acute failure or volume overload findings. Heart and vasculatu re are normal. No measurable pleural effusion and no pneumothorax. No acute bony abnormality seen. No acute aortic findings suspected. IMPRESSION: Chronic interstitial lung disease is present. No acute findings seen and no significant change
[2020-03-08 07:38] VITALS: TEMP 97.6
[2020-03-08 07:41] VITALS: BP 179/59; O2SAT 100
--- NOTE | 2020-03-08 11:10 | RAD REPORT ---
EXAM DESCRIPTION: CT - C Spine Wo Con - 03/08/2020 6:37 am CLINICAL HISTORY: PAIN COMPARISON: 09/12/2017 TECHNIQUE: Axial CT of the cervical spine obtained without contrast. FINDINGS: Straightening of the cervical lordosis may be secondary to patient positioning. The atla ntoaxial, atlantodental, and occipitoatlantal intervals are preserved. No fracture identified. Vert ebral body height preserved. Prevertebral soft tissues are unremarkable. Hnam-gc-khnvqumy multilevel loss of intervertebral disc height with endplate spondylosis, uncovertebr al spurring, and facet arthropathy. Visualized skull base is intact. No fracture of the visualized facial bones. Visualized mastoid air cells and paranasal sinuses are well aerated. Visualized thyroid is unremarkable. No cervical lymphadenopathy. No pneumothorax in the visualized lung apices. Carotid artery atherosclerosis. IMPRESSION: 1. No acute fracture or subluxation of the cervical spine. 2. Multilevel degenerative change of the cervical spine. This exam was performed according to our departmental dose-optimization program, which includes autom ated exposure control, adjustment of the mA and/or kV according to patient size and/or use of iterati ve reconstruction technique. Electronically signed by: Sean Taylor 03/07/2020 10:53 PM HEAD OF BIOLOGY Due to temporary technical issues with the PACS/Fluency reporting system, reports are being signed by the in house radiologists without review as a courtesy to insure prompt reporting. The interpreting radiologist is fully responsible for the content of the report.
--- NOTE | 2020-03-08 11:12 | RAD REPORT ---
EXAM DESCRIPTION: CT - Chest For Pe Angio - 03/08/2020 6:35 am CLINICAL HISTORY: 64 years Female CHEST PAIN COMPARISON: CT abdomen and pelvis study from 01/19/2020. TECHNIQUE: Contiguous axial images obtained through the chest during the infusion of IV contrast. Re formatted images obtained. MIP reformatted images obtained. This exam was performed according to our department optimization program which includes automated exp osure control, adjustment of the mA and/or kv according to patient size and/or use of iterative recon struction technique. FINDINGS: There are gallstones in the gallbladder. There is right renal cortical scarring. Small hiatal hernia. There are changes from previous sternotomy and aortic valve replacement. There is mild enlargement of the cardiac chambers. The mediastinum appears unremarkable. There are marked atherosclerotic calcifications. There is aneurysmal dilatation of the mid descending thoracic aorta measuring 3.8 cm in diameter. No pulmonary emboli are identified. Mild scarring/atelectasis in the lungs. No consolidating infiltrates or pleural effusions. No pneum othorax. There is mild central compression at T5 and there is mild compression fracture at T7. These fractures are most likely chronic. Old L1 compression fracture. IMPRESSION: No pulmonary emboli are identified. Atherosclerotic changes with aneurysmal dilatation of the mid descending thoracic aorta measuring 3.8 cm in diameter. Cholelithiasis. Electronically signed by: Harjit Bartlett MD 03/07/2020 11:33 PM MARBLEIZING MACHINE TENDER Due to temporary technical issues with the PACS/Fluency reporting system, reports are being signed by the in house radiologists without review as a courtesy to insure prompt reporting. The interpreting radiologist is fully responsible for the content of the report.
--- NOTE | 2020-03-08 11:14 | RAD REPORT ---
EXAM DESCRIPTION: CT - Abdomen Pelvis W Contrast - 03/08/2020 6:37 am CLINICAL HISTORY: 64 years Female ABD PAIN COMPARISON: 01/19/2020. TECHNIQUE: Contiguous axial images obtained through the abdomen and pelvis following IV contrast. Re formatted images obtained. This exam was performed according to our department optimization program which includes automated exp osure control, adjustment of the mA and/or kv according to patient size and/or use of iterative recon struction technique. FINDINGS: Mild scarring/atelectasis in the lower lungs. Small hiatal hernia. The liver appears unremarkable. The spleen and pancreas appear unremarkable. No adrenal masses. There is right renal cortical scarring similar compared to the prior study. No hydronephrosis. There are gallstones in the gallbladder. Atherosclerotic calcifications. No aneurysmal dilatation of the aorta. No bowel obstruction. The appendix appears unremarkable. There is a probable left ovarian cyst measuring 1.5 cm in diameter. There is minimal free fluid in th e pelvis. The gonadal veins are slightly prominent and clinical correlation is recommended to exclude the possibility of pelvic congestion syndrome. Mild curvature in the lower thoracic and lumbar spine convex left. There is an old compression fractu re at L1 with retropulsion of the superior endplate fracture fragment. The appearance is stable sabina red to the prior study. There are degenerative changes in the lumbar spine. There are severe degenera tive changes in the right hip. IMPRESSION: Cholelithiasis. There is a probable left ovarian cyst measuring 1.5 cm. Sonographic evaluation is recommended. Small amount of free fluid in the pelvis. The gonadal veins are slightly prominent and clinical correlation is recommended to exclude the possi bility of pelvic congestion syndrome. Old L1 compression fracture deformity which appears similar compared to the prior study. Severe degenerative changes in the right hip. Electronically signed by: Harjit Bartlett MD 03/07/2020 11:23 PM SALESPERSON SEWING MACHINES Due to temporary technical issues with the PACS/Fluency reporting system, reports are being signed by the in house radiologists without review as a courtesy to insure prompt reporting. The interpreting radiologist is fully responsible for the content of the report.
--- NOTE | 2020-03-08 18:13 | EKG ---
Test Date: 2020-03-07 Test Time: 23:50:51 Solar Installation Supervisor: GINA MEASUREMENT RESULTS: Intervals: Rate: 56 PA: 208 QRSD: 92 QT: 480 QTc: 463 [place]: P: 71 PA: 208 QRS: 59 T: 51 INTERPRETIVE STATEMENTS: Sinus bradycardia ST abnormality, possible digitalis effect Abnormal ECG Compared to ECG 11/09/2019 01:00:22 Sinus arrhythmia no longer present ST (T wave) deviation still present Electronically Signed On 03-08-20 18:11:21 SHIPPING INSPECTOR by Soren Carter
--- NOTE | 2020-03-08 18:13 | EKG ---
Test Date: 2020-03-07 Test Time: 21:05:54 Medical Lab Tech Instructor: SELENE MEASUREMENT RESULTS: Intervals: Rate: 49 OH: 174 QRSD: 104 QT: 480 QTc: 433 [place]: P: 72 OH: 174 QRS: 48 T: 58 INTERPRETIVE STATEMENTS: Marked sinus bradycardia ST abnormality, possible digitalis effect Abnormal ECG Compared to ECG 11/09/2019 01:00:22 Sinus arrhythmia no longer present ST (T wave) deviation still present Electronically Signed On 03-08-20 18:11:23 BREAKING MACHINE OPERATOR by Soren Carter
== END 2020-03-08 01:02 | disposition home or self-care (01) ==
LOC: ER 19:36
DX: K80.20 Calculus of gallbladder without cholecystitis without obstruction (principal); M19.09 Primary osteoarthritis, other specified site; I71.2 Thoracic aortic aneurysm, without rupture; T45.511A Poisoning by anticoagulants, accidental (unintentional), initial encounter; Z72.0 Tobacco use; Z88.5 Allergy status to narcotic agent
CPT/HCPCS: 96365; 96361; 93005 ×2; 85025; 80048; 36415; 83735; 85610; 85379; 80076; 81003; 84484 ×2; 83690; 83880; 72125; 71275; 74177; 71045; 96375; 99284; Q9967; J3430; J2175; J7030; J2405

== ENCOUNTER 2020-03-11 16:00 | Observation (INO) | payer OTHER ==
--- OUTSIDE RECORDS SUMMARY | 2020-03-11 16:02 | XMS REPORT | Continuity of Care Document ---
:1955 Author Organization [facility] t Address [address] [place] [address] Care Team Providers Name Role Phone Sy [...] Facility Department ID 2020-03-01 2020-03-01 Refill Sy SDKALEIGH [id number] 00:00:00 00:00:00 [place] Blackman [id number] [facility] [phone] [address] 2020-02-18 2020-02-18 Telephone Shahid Dan [id number] 00:00:00 00:00:00 [place] [facility] [id number] s and 4.2.7.2.686 Adult [phone] [address] [facility] 2020-02-17 2020-02-17 Commodity Supervisor Andre Osei SDKALEIGH 1.2.840.114 [id number] 09:15:01 09:30:01 Visit Lab Main [place] 350.1.13.10 [place] 4.2.7.2.686 Professio [phone] [address] 2020-02-11 2020-02-11 Refill [facility] [id number] 00:00:00 00:00:00 Qiamerzaheer Campton 350.1.13.10 [place] 4.2.7.2.686 Professio [phone] [address] 2020-01-21 2020-01-21 Refill [facility] [id number] 00:00:00 00:00:00 Qiamerzaheer [place] 350.1.13.10 [place] 4.2.7.2.686 Professio [phone] [address] 2020-01-12 2020-01-12 Telephone JOHANN Dan [id number] 00:00:00 00:00:00 [place] MIKE [id number] [facility] 4.2.7.2.686 [id number] [facility] 2020-01-11 2020-01-11 Commodity Supervisor Farnaz, [facility] 1.2.840.114 [id number] 12:41:31 12:56:31 Visit Lab Main Yehuda 350.1.13.10 [place] 4.2.7.2.686 Professio [phone] [address] 2019-12-17 2019-12-17 Commodity Supervisor Farnaz, [facility] [id number] 10:54:25 11:09:25 Visit Lab Main [place] 350.1.13.10 [place] 4.2.7.2.686 Professio [phone] [address] 2019-12-17 2019-12-17 Telephone Shahid Dan [id number] 00:00:00 00:00:00 [place] [facility] 350.1.13.10 s and 4.2.7.2.686 Adult [phone] [address] 2019-11-30 2019-11-30 Telephone Sy [facility] [id number] 00:00:00 00:00:00 [place] Campton 350.1.13.10 [place] 4.2.7.2.686 Professio [id number] [address] 2019-11-26 2019-11-26 Commodity Supervisor Farnaz [facility] 1.2.840.114 [id number] 12:40:21 12:55:21 Visit Lab Main [place] 350.1.13.10 [place] 4.2.7.2.686 Professio [phone] [address] 2019-11-26 2019-11-26 [facility] [id number] 00:00:00 00:00:00 [place] Leroy 350.1.13.10 [place] 4.2.7.2.686 Professio [phone] [address] 2019-11-24 2019-11-24 Refill [facility] 1.2.840.114 [id number] 00:00:00 00:00:00 Catrinafallon Blackman 350.1.13.10 [place] 4.2.7.2.686 Professio [phone] [address] 2019-10-30 2019-10-30 Hospital Radiology [facility] 1.2.840.114 [id number] 10:09:00 23:59:00 Encounter Yehuda 350.1.13.10 [place] 4.2.7.2.686 [place] [id number] [id number] 2019-10-30 2019-10-30 Orders Doctor WILLS 1.2.840.114 [id number] 00:00:00 00:00:00 Only Unassigned, MIKE 350.1.13.10 Corazon [facility] 4.2.7.2.686 [id number] 009 2019-10-20 2019-10-20 Commodity Supervisor Farnaz [facility] 1.2.840.114 [id number] 09:34:52 09:49:52 Visit Lab Main [place] 350.1.13.10 [place] 4.2.7.2.686 Professio [phone] [address] 2019-10-20 2019-10-20 Orders Doctor WILLS 1.2.840.114 [id number] 00:00:00 00:00:00 Only Unassigned, MIKE 350.1.13.10 Corazon [facility] 4.2.7.2.686 [id number] [facility] 2019-10-20 2019-10-20 [address] [facility], [facility] [id number] 00:00:00 00:00:00 [place] Blackman 350.1.13.10 [place] 4.2.7.2.686 Professio [phone] [address] 2019-09-30 2019-09-30 Commodity Supervisor Farnaz [facility] 1.2.840.114 [id number] 08:27:19 08:42:19 Visit Lab Main [place] 350.1.13.10 [place] 4.2.7.2.686 Professio [phone] [address] 2019-09-30 2019-09-30 Telephone [facility] [id number] 00:00:00 00:00:00 [place] Blackman 350.1.13.10 [place] 4.2.7.2.686 Professio [id number] [address] 2019-09-08 2019-09-08 Telemedici [facility] 1.2.840.114 [id number] 08:02:58 08:17:58 nj Visit [place] Blackman 350.1.13.10 [place] 4.2.7.2.686 Professio [phone] [address] 2019-09-03 2019-09-03 Commodity Supervisor Farnaz [facility] 1.2.840.114 [id number] 08:53:22 09:08:22 Visit Lab Main [place] 350.1.13.10 [place] 4.2.7.2.686 Professio [phone] [address] 2019-09-03 2019-09-03 Telephone [facility] [id number] 00:00:00 00:00:00 [place] Blackman 350.1.13.10 [place] 4.2.7.2.686 Professio [phone] [address] 2019-09-02 2019-09-02 Telephone [facility] [id number] 00:00:00 00:00:00 Qiangjun [place] 350.1.13.10 [place] 4.2.7.2.686 Professio [phone] [address] 2019-09-02 2019-09-02 [address] [facility], [facility] [id number] 00:00:00 00:00:00 Qiangjun Ler[place] 350.1.13.10 [place] 4.2.7.2.686 Professio [phone] [address] 2019-08-26 2019-08-26 [address] [facility], [facility] 1.2.840.114 [id number] 00:00:00 00:00:00 Qiangjun Ler[place] 350.1.13.10 [place] 4.2.7.2.686 Professio [phone] [address] 2019-07-31 2019-07-31 Refill [facility] 1.2.840.114 [id number] 00:00:00 00:00:00 Qiangjun [place] 350.1.13.10 [place] 4.2.7.2.686 Professio [phone] [address] 2019-07-24 2019-07-24 Commodity Supervisor 1, Adc Lab [facility] 1.2.840.114 [id number] 11:42:42 11:57:42 Visit [place] 350.1.13.10 [place] 4.2.7.2.686 [place] [id number] [facility] 2019-07-24 2019-07-24 Telephone [facility] [id number] 00:00:00 00:00:00 [place] [facility] 350.1.13.10 [place] 4.2.7.2.686 [place] [phone] [place] [address] [facility] 2019-06-30 2019-06-30 Refill [facility] 1.2.840.114 [id number] 00:00:00 00:00:00 Qiangjun Ler[place] 350.1.13.10 [place] 4.2.7.2.686 Professio [phone] [address] 2019-04-27 2019-04-27 Telephone [facility] [id number] 00:00:00 00:00:00 [place] Blackman 350.1.13.10 Bhavya 4.2.7.2.686 Profess [phone] [facility] Building Results This patient has no known results.
[2020-03-11 16:49] LABS: Protime INR 1.03
[2020-03-11] MEDS ORDERED: METOPROLOL TARTRATE 5 MG/5 ML INJ IV ONE ×3 (16:49→17:20)
[2020-03-11 16:55] LABS: Absolute Lymphocytes (CBC) 1.5 K/uL (0.7-4.9); Basophils % 1.3 % (0-1.3); Hematocrit 33.7 % (36.0-45.0); Lymphocytes % 26.4 % (15.3-44.8); MPV 8.9 fL (7.6-11.3); RBC Red Blood Cell Count 3.59 M/uL (3.86-4.86)
[2020-03-11 17:01] LABS: ALT/SGPT 25 U/L (12-78); AST/SGOT 28 U/L (15-37); Albumin 3.8 g/dL (3.4-5.0); Alkaline Phosphatase 115 U/L (45-117); BUN Blood Urea Nitrogen 13 mg/dL (7-18); Bicarbonate 30 mmol/L (21-32); Bilirubin Direct < 0.1 mg/dL (0-0.2); Bilirubin Total 0.4 mg/dL (0.2-1.0); Glucose Level 148 mg/dL (74-106); Magnesium 1.9 mg/dL (1.8-2.4); NT PRO-BNP 226 pg/mL (<125); Potassium 3.4 mmol/L (3.5-5.1); Protein, Total 7.7 g/dL (6.4-8.2); Sodium Level 142 mmol/L (136-145); Troponin (Emerg Dept Use Only) < 0.02 ng/mL (0.0-0.045)
[2020-03-11] MEDS ORDERED: MEPERIDINE HCL 25 MG/ML SYR ONE (17:26)
--- NOTE | 2020-03-11 17:38 | RAD REPORT ---
EXAM DESCRIPTION: Phyllis Single View03/11/2020 5:04 pm CLINICAL HISTORY: Chest pain COMPARISON: March 07, 2020 FINDINGS: The lungs appear clear of acute infiltrate. The heart is mildly to moderately enlarged. Postsurgical changes involve the chest. IMPRESSION: No acute abnormalities displayed
[2020-03-11] MEDS ORDERED: dilTIAZem HCL 25 MG/5 ML VIAL IV ONE (17:45)
[2020-03-11] MEDS ORDERED: DILTIAZEM HCL 60 MG TAB ONE (18:09)
--- NOTE | 2020-03-11 18:58 | EDPHYS ---
Physician Documentation [facility] Name: Michelle Saavedra Age: 64 yrs Sex: Female : 1955 Arrival Date: 03/11/2020 Time: 16:02 Bed 3 Private MD: Saurabh Dobson E ED Physician Cruz Benoit HPI: 03/11 16:30 This 64 yrs old Female presents to ER via Wheelchair with complaints of Chest m Pain. 16:30 The patient or guardian reports chest pain that is located primarily in the anterior [facility] chest wall. Onset: acutely, 30 minute(s) ago. The pain does not radiate. Associated signs and symptoms: Pertinent positives: palpitations. The chest pain is described as aching, a pressure, sharp. Duration: The patient or guardian reports a single episode. Modifying factors: The symptoms are alleviated by nothing. the symptoms are aggravated by nothing. The patient has experienced similar episodes in the past. Historical: - Allergies: 16:33 Fentanyl; itching; iw 16:33 Morphine; iw - Home Meds: 16:38 aspirin 81 mg Oral tab 1 tab once daily [Active]; atorvastatin 20 mg Oral tab 1 tab iw once daily [Active]; Coumadin 2.5 mg Oral tab 1 tab once daily [Active]; gabapentin Oral [Active]; [place] 7.5-325 mg Oral tab 1 tab every 4 hours [Active]; pantoprazole Oral [Active]; sotalol 80 mg Oral tab 2 times per day [Active]; - PMHx: 16:33 Atrial Fib; GERD; Hyperlipidemia; Hypertension; mechanical heart valve; Back pain; iw - Immunization history:: Adult Immunizations up to date. - Social history:: Smoking status: Patient denies any tobacco usage or history of. ROS: 16:30 Constitutional: Negative for fever, chills, and weight loss. jmm 16:30 Respiratory: Negative for shortness of breath, cough, wheezing, and pleuritic chest pain, Abdomen/GI: Negative for abdominal pain, nausea, vomiting, diarrhea, and constipation. 16:30 Cardiovascular: Positive for chest pain. 16:30 All other systems are negative. Exam: 16:30 Head/Face: atraumatic. Eyes: EOMI, no conjunctival erythema appreciated ENT: Moist jmm Mucus Membranes Neck: Trachea midline, Supple Chest/axilla: Normal chest wall appearance and motion. 16:30 Abdomen/GI: Non distended, soft Back: Normal ROM Skin: General appearance color normal MS/ Extremity: Moves all extremities, no obvious deformities appreciated, no edema noted to the lower extremities Neuro: Awake and alert, normal gait Psych: Behavior is normal, Mood is normal, Patient is cooperative and pleasant 16:30 Constitutional: The patient appears alert, awake, comatose, uncomfortable. 16:30 Cardiovascular: Rate: tachycardic, Rhythm: regular. 16:30 Cardiovascular: Rate: 16:30 Respiratory: the patient does not display signs of respiratory distress, Respirations: normal, Breath sounds: are clear throughout. 16:30 Abdomen/GI: Inspection: abdomen appears normal, Bowel sounds: normal, Palpation: abdomen is soft and non-tender. Vital Signs: 16:28 BP 134 / 80; Pulse 153; Resp 16 S; Temp 97.7; Pulse Ox 97% ; Weight 48.08 kg; Height 5 iw ft. 3 in. (160.02 cm); Pain 10/10; 16:35 BP 143 / 82; Pulse 152; Resp 17; Pulse Ox 99% on R/A; hb 16:49 BP 130 / 89; Pulse 129; Resp 14; Pulse Ox 100% on R/A; hb 17:00 BP 113 / 91; Pulse 140; Resp 14; Pulse Ox 98% on R/A; hb 17:15 BP 125 / 107; Pulse 132; Resp 15; Pulse Ox 99% on R/A; Pain 9/10; hb 17:35 BP 120 / 70; Pulse 82; Resp 16; Pulse Ox 100% on R/A; hb 17:57 BP 112 / 59; Pulse 100; Resp 16; Pulse Ox 99% on R/A; Pain 5/10; hb 18:15 BP 127 / 58; Pulse 93; Resp 16; Pulse Ox 100% on R/A; hb 18:57 BP 150 / 88; Pulse 118; Resp 17; Pulse Ox 98% on R/A; hb 16:28 Body Mass Index 18.78 (48.08 kg, 160.02 cm) iw MDM: 16:33 Patient medically screened. alen 18:54 Data reviewed: vital signs, nurses notes. Counseling: I had a detailed discussion with alen the patient and/or guardian regarding: the historical points, exam findings, and any diagnostic results supporting the discharge/admit diagnosis, lab results, radiology results, the need for further work-up and treatment in the hospital. ED course: I discussed the patient with Armaan Aguilar whom accepted the patient to Dr. Dumont's service. . 03/11 16:27 Order name: Basic Metabolic Panel; Complete Time: 17:06 03/11 16:27 Order name: CBC with Diff; Complete Time: 17:12 03/11 16:27 Order name: LFT's; Complete Time: 17:06 03/11 16:27 Order name: Magnesium; Complete Time: 17:06 03/11 16:27 Order name: NT PRO-BNP; Complete Time: 17:06 03/11 16:27 Order name: PT-INR; Complete Time: 17:12 03/11 16:27 Order name: Troponin (emerg Dept Use Only); Complete Time: 17:06 03/11 16:27 Order name: XRAY Chest (1 view); Complete Time: 17:40 03/11 19:12 Order name: Protime (+INR) [facility] 03/11 19:12 Order name: Protime (+INR) [facility] 03/11 19:12 Order name: Protime (+INR) [facility] 03/11 19:12 Order name: Protime (+INR) [facility] 03/11 19:12 Order name: Protime (+INR) [facility] 03/11 19:12 Order name: Protime (+INR) [facility] 03/11 16:27 Order name: EKG; Complete Time: 16:28 03/11 16:27 Order name: Cardiac monitoring; Complete Time: 16:30 03/11 16:27 Order name: EKG - Nurse/Tech; Complete Time: 16:30 03/11 16:27 Order name: IV Saline Lock; Complete Time: 16:34 03/11 16:27 Order name: Labs collected and sent; Complete Time: 16:34 03/11 16:27 Order name: O2 Per Protocol; Complete Time: 16:34 03/11 16:27 Order name: O2 Sat Monitoring; Complete Time: 16:34 Administered Medications: 16:37 Drug: Metoprolol 5 mg Route: IVP; Site: left antecubital; hb 16:53 Follow up: Response: No adverse reaction hb 16:49 Drug: Metoprolol 5 mg Route: IVP; Site: left antecubital; hb 17:16 Follow up: Response: No adverse reaction hb 17:09 Drug: Metoprolol 5 mg Route: IVP; Site: left antecubital; hb 17:20 Follow up: Response: No adverse reaction hb 17:16 Drug: Demerol 25 mg Route: IVP; Site: left antecubital; hb 18:14 Follow up: Response: No adverse reaction hb 17:35 Drug: Diltiazem 10 mg Route: IVP; Site: left antecubital; hb 18:14 Follow up: Response: No adverse reaction hb 18:13 CANCELLED (switched to PO per BEBO Echavarria): Diltiazem 5 mg/hr IV at calculated rate hb continuous; (standard dilution 125 mg diltiazem mixed in 100mL NS; final concentration 1mg/mL) 18:14 Drug: Diltiazem 60 mg Route: PO; hb 18:56 Follow up: Response: No adverse reaction hb 18:45 Not Given (will give bolus): Diltiazem 5 mg/hr IV at calculated rate continuous; jmm (standard dilution 125 mg diltiazem mixed in 100mL NS; final concentration 1mg/mL) 18:55 Drug: Lovenox 1 mg/kg Route: Sub-Q; Site: abdomen; hb 20:00 Follow up: Response: No adverse reaction ll2 18:56 Drug: Betapace 80 mg Route: PO; hb Disposition: 03/11/20 18:57 Hospitalization ordered by Evin Dumont for Inpatient Admission. Preliminary diagnosis are Chest pain, unspecified, Unspecified atrial fibrillation and atrial flutter. - Bed requested for Telemetry/MedSurg (Inpatient). - Status is Inpatient Admission. ll2 - Condition is Stable. - Problem is an acute exacerbation. - Symptoms have improved. Addendum: 03/15/2020 03:33 Co-signature as Attending Physician, Cruz Benoit MD. m a2 Signatures: Dispatcher [employer] EDMS Albertina Watkins RN RN Jericho Cavazos PA PA jmm Williams, Irene, RN RN Seema Bruno RN RN hb Alzahri, Mohammad, MD MD ma2 Maryam Quinones, RN RN ll2 Corrections: (The following items were deleted from the chart) 03/11 18:13 17:51 Diltiazem 5 mg/hr IV at calculated rate continuous; (standard dilution 125 mg hb diltiazem mixed in 100mL NS; final concentration 1mg/mL) ordered. [facility] 19:07 18:57 Hospitalization Ordered by Evin Dumont MD for Inpatient Admission. Preliminary diagnosis is Chest pain, unspecified; Unspecified atrial fibrillation and atrial flutter. Bed requested for Telemetry/MedSurg (Inpatient). Status is Inpatient Admission. Condition is Stable. Problem is an acute exacerbation. Symptoms have improved. [facility] 21:17 19:07 03/11/2020 18:57 Hospitalization Ordered by Evin Dumont MD for Inpatient ll2 Admission. Preliminary diagnosis is Chest pain, unspecified; Unspecified atrial fibrillation and atrial flutter. Bed requested for Telemetry/MedSurg (Inpatient). Status is Inpatient Admission. Condition is Stable. Problem is an acute exacerbation. Symptoms have improved. mw
--- NOTE | 2020-03-11 18:58 | ER ---
Nurse's Notes [facility] Name: iMchelle Saavedra Age: 64 yrs Sex: Female : 1955 Arrival Date: 03/11/2020 Time: 16:02 Bed 3 Private MD: Saurabh Dobson E Diagnosis: Chest pain, unspecified;Unspecified atrial fibrillation and atrial flutter Presentation: 03/11 16:28 Chief complaint: Patient states: has been feeling bad all day, chest pains today, felt iw her heart racing about an hour ago, has hx of afib , on sotalol and warfarin, had to be cardioverted last time this happened. Coronavirus screen: At this time, the client does not indicate any symptoms associated with coronavirus-19. Ebola Screen: Patient negative for fever greater than or equal to 101.5 degrees Fahrenheit, and additional compatible Ebola Virus Disease symptoms Patient denies exposure to infectious person. Patient denies travel to an Ebola-affected area in the 21 days before illness onset. No symptoms or risks identified at this time. Initial Sepsis Screen: Does the patient meet any 2 criteria? No. Patient's initial sepsis screen is negative. Does the patient have a suspected source of infection? No. Patient's initial sepsis screen is negative. Risk Assessment: Do you want to hurt yourself or someone else? Patient reports no desire to harm self or others. Onset of symptoms was March 11, 2020. 16:28 Method Of Arrival: Wheelchair iw 16:28 Acuity: JAKUB 2 iw Historical: - Allergies: 16:33 Fentanyl; itching; iw 16:33 Morphine; iw - Home Meds: 16:38 aspirin 81 mg Oral tab 1 tab once daily [Active]; atorvastatin 20 mg Oral tab 1 tab iw once daily [Active]; Coumadin 2.5 mg Oral tab 1 tab once daily [Active]; gabapentin Oral [Active]; [place] 7.5-325 mg Oral tab 1 tab every 4 hours [Active]; pantoprazole Oral [Active]; sotalol 80 mg Oral tab 2 times per day [Active]; - PMHx: 16:33 Atrial Fib; GERD; Hyperlipidemia; Hypertension; mechanical heart valve; Back pain; iw - Immunization history:: Adult Immunizations up to date. - Social history:: Smoking status: Patient denies any tobacco usage or history of. Screenin:38 Abuse screen: Denies threats or abuse. Denies injuries from another. iw 17:00 Nutritional screening: No deficits noted. Tuberculosis screening: No symptoms or risk ll2 factors identified. 19:30 Fall Risk None identified. ll2 Assessment: 16:30 General: Appears in no apparent distress. uncomfortable, Behavior is cooperative, hb anxious. Pain: Complains of pain in chest Pain does not radiate. Pain currently is 5 out of 10 on a pain scale. Pain began suddenly, 2 hours ago. Neuro: Level of Consciousness is awake, alert, obeys commands, Oriented to person, place, time, situation. Cardiovascular: Capillary refill < 3 seconds Patient's skin is warm and dry. Rhythm is atrial fibrillation with rapid ventricular response. Respiratory: Airway is patent Respiratory effort is even, unlabored, Respiratory pattern is regular, symmetrical, Breath sounds are clear bilaterally. GI: No signs and/or symptoms were reported involving the gastrointestinal system. : No signs and/or symptoms were reported regarding the genitourinary system. EENT: No signs and/or symptoms were reported regarding the EENT system. Derm: Skin is pink, warm \T\ dry. Musculoskeletal: No signs and/or symptoms reported regarding the musculoskeletal system. 17:17 Reassessment: Pt c/o chest pain 12/23. BEBO Echavarria notified, Demerol administered as ordered.hb 18:15 Reassessment: Patient appears in no apparent distress at this time. No changes from hb previously documented assessment. Patient and/or family updated on plan of care and expected duration. Pain level reassessed. 19:40 Reassessment: No changes from previously documented assessment. Patient and/or family ll2 updated on plan of care and expected duration. Pain level reassessed. tried to call report told nurse unable to receive at the moment. 19:42 Reassessment: tried to call report to upstairs, denied being able to receive at this ll2 time. will call back shortly. 20:09 Cardiovascular: Rhythm is sinus bradycardia. rv 20:09 Reassessment: ekg done, and showed it to BEBO Degroot. vital signs stable. patient is rv feeling better. 21:15 Reassessment: report given to PHILLIP avalos. ll2 Vital Signs: 16:28 BP 134 / 80; Pulse 153; Resp 16 S; Temp 97.7; Pulse Ox 97% ; Weight 48.08 kg; Height 5 iw ft. 3 in. (160.02 cm); Pain 10/10; 16:35 BP 143 / 82; Pulse 152; Resp 17; Pulse Ox 99% on R/A; hb 16:49 BP 130 / 89; Pulse 129; Resp 14; Pulse Ox 100% on R/A; hb 17:00 BP 113 / 91; Pulse 140; Resp 14; Pulse Ox 98% on R/A; hb 17:15 BP 125 / 107; Pulse 132; Resp 15; Pulse Ox 99% on R/A; Pain 9/10; hb 17:35 BP 120 / 70; Pulse 82; Resp 16; Pulse Ox 100% on R/A; hb 17:57 BP 112 / 59; Pulse 100; Resp 16; Pulse Ox 99% on R/A; Pain 5/10; hb 18:15 BP 127 / 58; Pulse 93; Resp 16; Pulse Ox 100% on R/A; hb 18:57 BP 150 / 88; Pulse 118; Resp 17; Pulse Ox 98% on R/A; hb 16:28 Body Mass Index 18.78 (48.08 kg, 160.02 cm) iw ED Course: 16:02 Patient arrived in ED. mr 16:02 Saurabh Dobson MD is Private Physician. mr 16:22 [facility] jmm 16:22 Cruz Benoit MD is Attending Physician. jmm 16:26 EKG done, by ED staff, reviewed by Cruz Benoit MD. dh3 16:33 Triage completed. iw 16:34 Inserted saline lock: 18 gauge in left antecubital area, using aseptic technique. Blood ec1 collected. 16:34 Arm band placed on. iw 16:43 Seema Bruno, PHILLIP is Primary Nurse. hb 17:03 XRAY Chest (1 view) In Process Unspecified. EDMS 18:56 Evin Dumont MD is Hospitalizing Provider. jmm 19:30 Patient has correct armband on for positive identification. Placed in gown. Bed in low ll2 position. Call light in reach. Side rails up X 1. security monitor on. Pulse ox on. NIBP on. 20:00 EKG done. ll2 21:16 No provider procedures requiring assistance completed. Patient admitted, IV remains in ll2 place. Patient maintains SpO2 saturation greater than 95% on room air. Administered Medications: 16:37 Drug: Metoprolol 5 mg Route: IVP; Site: left antecubital; hb 16:53 Follow up: Response: No adverse reaction hb 16:49 Drug: Metoprolol 5 mg Route: IVP; Site: left antecubital; hb 17:16 Follow up: Response: No adverse reaction hb 17:09 Drug: Metoprolol 5 mg Route: IVP; Site: left antecubital; hb 17:20 Follow up: Response: No adverse reaction hb 17:16 Drug: Demerol 25 mg Route: IVP; Site: left antecubital; hb 18:14 Follow up: Response: No adverse reaction hb 17:35 Drug: Diltiazem 10 mg Route: IVP; Site: left antecubital; hb 18:14 Follow up: Response: No adverse reaction hb 18:13 CANCELLED (switched to PO per BEBO Echavarria): Diltiazem 5 mg/hr IV at calculated rate hb continuous; (standard dilution 125 mg diltiazem mixed in 100mL NS; final concentration 1mg/mL) 18:14 Drug: Diltiazem 60 mg Route: PO; hb 18:56 Follow up: Response: No adverse reaction hb 18:45 Not Given (will give bolus): Diltiazem 5 mg/hr IV at calculated rate continuous; [facility] (standard dilution 125 mg diltiazem mixed in 100mL NS; final concentration 1mg/mL) 18:55 Drug: Lovenox 1 mg/kg Route: Sub-Q; Site: abdomen; hb 20:00 Follow up: Response: No adverse reaction ll2 18:56 Drug: Betapace 80 mg Route: PO; hb Outcome: 18:57 Decision to Hospitalize by Provider. alen 21:16 Admitted to Med/surg accompanied by nurse, via wheelchair, Report called to phillip avalos 2 21:16 Condition: stable 21:16 Instructed on the need for admit. 21:17 Patient left the ED. ll2 Signatures: Dispatcher [employer] EDMS Jericho Cavazos PA PA jmm Rivera, Mary mr Williams, Irene, RN RN Seema Bruno RN RN Claudia Velasquez [facility] Fahad Haley, RN RN rv Maryam Quinones, RN RN ll2 Adenike Vasquez, RN RN ec1
[2020-03-11] MEDS ORDERED: SOTALOL HCL 80 MG TAB ONE (19:06)
[2020-03-11] MEDS ORDERED: ENOXAPARIN 60 MG/0.6 ML SQ ONE (19:07)
[2020-03-11] MEDS ORDERED: ACETAMINOPHEN 500 MG TAB PO PRN (21:51)
[2020-03-11 21:59] VITALS: BMI 18.3
[2020-03-11] MEDS: MEPERIDINE HCL 25 MG/ML SYR IV PRN (22:37)
[2020-03-12] MEDS ORDERED: POTASSIUM 25 MEQ EFFERV TAB PO ONE (00:05)
[2020-03-12] MEDS ORDERED: ZOLPIDEM TARTRATE 10 MG TABLET PO PRN (01:25)
--- NOTE | 2020-03-12 01:44 | P.HP ---
Certification for Inpatient Patient admitted to: Observation With expected LOS: <2 Midnights Patient will require the following post-hospital care: None Practitioner: I am a practitioner with admitting privileges, knowledge of patient current condition, hospital course, and medical plan of care. Services: Services provided to patient in accordance with Admission requirements found in Title 42 Section 412.3 of the Code of Federal Regulations <Scott Degroot - Last Filed: 03/12/20 01:38> Patient History Date of Service: 03/12/20 Primary Care Provider: Dr. Dobson Reason for admission: Chest Pain, Atrial Fib with RVR History of Present Illness: This is a 64-year-old female that presented to the emergency room after feeling not well all day. Stated that she has had chest pain today and felt her heart racing about an hr prior to arrival. Patient has a history of atrial fibrillation and is currently on sotalol 80 mg twice daily and warfarin for heart valve replacement. Other notable history is hyperlipidemia, hypertension, acid reflux, chronic pain. Patient was worked up in the emergency room and found to be in atrial fibrillation with rapid ventricular rate. Patient stated that she took her morning sotalol. As such emergency room started her on Lopressor IV in for 3 rounds with unchanged rate. They then switched to Cardizem IV and p.o. which seemed to bring the heart rate down. Patient was given her nighttime sotalol dose in the emergency room. Medicine was consulted at that point for admission. Upon assessment in the emergency room patient was now normotensive and with a normal rate. Home medications list reviewed: Yes - Past Medical/Surgical History Has patient received pneumonia vaccine in the past: Yes Diabetic: No -: chronic back pain -: depression -: gallstones -: kidney infection -: GERD -: mechanical aorta -: palpitations -: Atrial fibrillation -: aortic valve replacement -: cardioversion -: tubal ligation - Family History Brother -: Heart disease, Cancer Notes: heart attack Mother -: Heart disease, Diabetes Notes: of heart attack Father -: Heart disease Notes: of heart attack Sister -: Heart disease, Diabetes, Cancer Notes: sisters x2 - DM. sister x1 - heart attack. sister- lung cancer - Social History Smoking Status: Never smoker Smoking therapy provided: No Alcohol use: No CD- Drugs: No Caffeine use: Yes Place of Residence: Home <Scott Degroot - Last Filed: 03/12/20 01:38> Date of Service: 03/16/20 <Evin Dumont - Last Filed: 03/16/20 10:35> Allergies morphine Allergy (Intermediate, Verified 04/05/18 04:34) panic ATTACK; shaking fentanyl Allergy (Verified 04/05/18 04:34) Itching Home Medications: Zolpidem Tartrate [Ambien*] 10 mg PO BEDTIME 07/07/13 Aspirin Chewable [Aspirin Chewable*] 81 mg PO BEDTIME 04/30/17 Atorvastatin Calcium 40 mg PO BEDTIME 04/30/17 Hydrocodone Bit/Acetaminophen [Hydrocodon-Acetaminoph 7.5-325] 1 pill PO TID PRN 03/02/19 Lidocaine 4% Patch [Lidoderm 5% Patch*] 2 patch TOP BEDTIME PRN 03/02/19 Gabapentin [Neurontin*] 300 mg PO TID 11/09/19 Nitroglycerin [Nitrostat*] 0.4 mg SL UD PRN #30 tab 11/10/19 Alendronate Sodium 35 mg PO EVERY 7TH DAY 03/11/20 Ascorbic Acid [Vitamin C] 500 mg PO BEDTIME 03/11/20 Diclofenac Sodium 1 coreen TOP DAILY PRN 03/11/20 Multivit-Min/Iron/Folic Acid/K [Adults Multivitamin Tablet] 1 each PO BEDTIME 03/11/20 Pantoprazole [Protonix Tab*] 40 mg PO BIDAC 03/11/20 Sotalol HCl [Betapace*] 80 mg PO BID 03/11/20 Warfarin Sodium [Coumadin] 2 mg PO DAILY AT SUPPER 03/11/20 Review of Systems General: Unremarkable Eyes: Unremarkable ENT: Unremarkable Respiratory: Unremarkable Cardiovascular: Chest Pain, Palpitations Gastrointestinal: Unremarkable Musculoskeletal: Unremarkable Integumentary: Unremarkable Neurological: Unremarkable Lymphatics: Unremarkable <Scott Degroot - Last Filed: 03/12/20 01:38> Physical Examination - Vital Signs Temperature: 98.9 F Blood Pressure: 135/58 Pulse: 49 Respirations: 16 Pulse Ox (%): 99 - Physical Exam General: Alert, In no apparent distress, Oriented x3, Cooperative HEENT: PERRLA, Mucous membr. moist/pink, EOMI Neck: Supple, 2+ carotid pulse no bruit, JVD not distended, No Thyromegaly Respiratory: Clear to auscultation bilaterally, Normal air movement Cardiovascular: No edema, Normal pulses, No gallops, No rubs, No murmurs, Irregular heart rate/rhythm Capillary refill: <2 Seconds Gastrointestinal: Normal bowel sounds, Soft and benign, Non-distended, No ascites, No tenderness, No masses, No rebound, No guarding Musculoskeletal: No clubbing, No swelling, No contractures, No erythema, No tenderness, No warmth Integumentary: No rashes, No breakdown, No significant lesion, No tenderness/swelling, No erythema, No warmth, No cyanosis Neurological: Normal speech, Normal strength at 5/5 x4 extr, Normal tone, Sensation intact, Cranial nerves 3-12 intact, Normal affect Lymphatics: No axilla or inguinal lymphadenopathy - Studies Laboratory Data (last 24 hrs) 03/11/20 16:30: PT 12.1, INR 1.03 03/11/20 16:30: WBC 5.8, Hgb 11.4 L, Hct 33.7 L, Plt Count 224 03/11/20 16:30: Sodium 142, Potassium 3.4 L, BUN 13, Creatinine 0.85, Glucose 148 H, Magnesium 1.9, Total Bilirubin 0.4, AST 28, ALT 25, Alkaline Phosphatase 115 <Scott Degroot - Last Filed: 03/12/20 01:38> Assessment and Plan - Problems (Diagnosis) (1) Atrial fibrillation with rapid ventricular response Onset Date: 05/01/17 Status: Acute (2) Chest pain Onset Date: 06/15/15 Status: Acute Qualifiers: Chest pain type: unspecified Qualified Code(s): R07.9 - Chest pain, uns pecified (3) Mechanical heart valve present Onset Date: 05/01/17 Status: Chronic (4) Palpitations Onset Date: 06/28/14 Status: Acute - Plan 1. Patient admitted to telemetry for further cardiac monitoring. 2. Patient will continue on her sotalol dose for her atrial fibrillation. Patient now bradycardic to normal normal rate. Cardiology will be consulted for further assessment secondary to the atrial fibrillation with rapid ventricular rate to see if they wanted to a dose adjustment. 3. Patient will have blood pressure controlled for systolic greater than 160 diastolic greater than 110. 4. Patient was not therapeutically coagulated on her current warfarin dose. As such patient was started on Lovenox. We will continue to monitor her INR. 5. Patient will have serial troponins drawn wall admitted for her current chest pain. Diagnosis to ensure that she does not elevate and become a NSTEMI. Now that patient is rate controlled. We will continue to coagulate her and trend her enzymes. Will wait for cardiology for further evaluation. If patient remains stable and rate controlled patient should be able to go home in the next day. Discharge Plan: Home Plan to discharge in: 24 Hours - Advance Directives Does patient have a Living Will: No Does patient have a Durable POA for Healthcare: No - Code Status/Comfort Care Code Status Assessed: No Critical Care: No Time Spent Managing Pts Care (In Minutes): 70 <Scott Degroot - Last Filed: 03/12/20 01:38> - Plan Patient seen and examined on 03/12, agree with plan as outlined above by Scott Degroot, please refer to my note on same date for further details. Patient in sinus bradycardia / normal sinus now, continue home sotalol, monitor on telemetry, trend troponin, if stable, likely dc home later today <Evin Dumont - Last Filed: 03/16/20 10:35>
[2020-03-12 05:47] LABS: Absolute Lymphocytes (CBC) 1.5 K/uL (0.7-4.9); Basophils % 1.1 % (0-1.3); Hematocrit 29.7 % (36.0-45.0); Lymphocytes % 25.6 % (15.3-44.8); MPV 9.1 fL (7.6-11.3); RBC Red Blood Cell Count 3.17 M/uL (3.86-4.86)
[2020-03-12 05:47] LABS: Protime INR 1.23
[2020-03-12] MEDS: SOTALOL HCL 80 MG TAB PO SCH ×2 (06:00→12:16)
[2020-03-12] MEDS ORDERED: PANTOPRAZOLE 40MG TABLET PO SCH ×2 (06:30→16:30)
[2020-03-12] MEDS: ENOXAPARIN 60 MG/0.6 ML SQ SCH ×2 (07:04→07:05)
[2020-03-12] MEDS: MEPERIDINE HCL 25 MG/ML SYR IV PRN (08:26)
[2020-03-12] MEDS ORDERED: LIDOCAINE 4% PATCH TOP PRN (08:52)
[2020-03-12] MEDS ORDERED: HYDROCODONE/APAP 7.5/325 MG TAB PO PRN (08:52)
[2020-03-12] MEDS ORDERED: DICLOFENAC SODIUM TOP PRN (08:52)
[2020-03-12] MEDS ORDERED: ASPIRIN EC 81 MG TAB PO SCH (09:00)
[2020-03-12] MEDS: GABAPENTIN 300 MG CAP PO SCH ×2 (10:16→14:37)
[2020-03-12 12:18] VITALS: O2SAT 98
--- NOTE | 2020-03-12 14:41 | P.DS ---
Admission Date: 03/11/20 Discharge Date: 03/12/20 Primary Care Provider: Dr. Dobson Disposition: ROUTINE DISCHARGE Discharge Condition: GOOD Reason for Admission: Chest Pain, Atrial Fib with RVR Consultations: Cardiology - Dr. Bolanos Procedures: CXR (03/11): Lungs appear clear of acute infiltrate. Heart is mildly to moderately enlarged. Postsurgical changes about the chest. Problem list Paroxysmal atrial fibrillation s/p mechanical aortic valve replacement, on Coumadin GERD Depression Chronic back pain Brief History of Present Illness: 64yo F, presented to ED due to chest pain and felt her heart racing for ~1 hour prior to arrival. She was found to be in afib with RVR. She received IV Lopressor x3, IV cardizem and PO cardizem, then given her sotalol home dose, which improved her heart rate. She was admitted for further evaluation. Hospital Course: The patient was continued on her sotalol. Overnight she converted to sinus rhythm. She no longer had chest pain or palpitations. Cardiology was consulted, and felt the patient did not require any further evaluation at of her chest pain since that resolved after conversion to sinus rhythm and troponins remained negative x3. Patient's INR was noted to be 1.03 on admission. On further discussion, patient reported she was recently seen in the ED noted to have an INR> 5, and was given vitamin-K. In addition to this, patient went out of town for Thanksgiving and forgot her medications (Coumadin and sotalol) for at least 2 days. This was likely the cause of her to be in AFib with RVR as well. She was discharged home to continue her Coumadin, and advised to have an INR checked this coming week in 2-3 days. Patient did report some slight abdominal discomfort that has been chronic for several months. She tolerated her diet without issue here, and sleeping comfortably off and on throughout the day. Review of EMR reveals patient presented to the ED on 03/[address] C-spine, chest, abdomen/pelvis which did not show any acute process. It was recommended that she follow up with her PCP. Vital Signs/Physical Exam: Temp Pulse Resp BP Pulse Ox 98.3 F 56 15 132/62 98 03/12/20 12:00 03/12/20 12:00 03/12/20 12:00 03/12/20 12:00 03/12/20 12:00 General: Alert, In no apparent distress HEENT: Sclerae nonicteric Respiratory: Clear to auscultation bilaterally Cardiovascular: No edema, Regular rate/rhythm, Systolic murmur Gastrointestinal: Soft and benign, Non-distended Musculoskeletal: No tenderness Integumentary: No rashes Neurological: Normal speech, Normal affect Laboratory Data at Discharge: WBC 5.8 K/uL (4.3-10.9) 03/12/20 05:07 Hgb 10.0 g/dL (12.0-15.0) L 03/12/20 05:07 Hct 29.7 % (36.0-45.0) L 03/12/20 05:07 Plt Count 205 K/uL (152-406) 03/12/20 05:07 PT 14.4 SECONDS (9.5-12.5) H 03/12/20 05:02 INR 1.23 03/12/20 05:02 Sodium 143 mmol/L (136-145) 03/12/20 05:07 Potassium 4.0 mmol/L (3.5-5.1) 03/12/20 05:07 BUN 14 mg/dL (7-18) 03/12/20 05:07 Creatinine 0.74 mg/dL (0.55-1.3) 03/12/20 05:07 Glucose 118 mg/dL (74-106) H 03/12/20 05:07 Magnesium 1.9 mg/dL (1.8-2.4) 03/11/20 16:30 Total Bilirubin 0.4 mg/dL (0.2-1.0) 03/11/20 16:30 AST 28 U/L (15-37) 03/11/20 16:30 ALT 25 U/L (12-78) 03/11/20 16:30 Alkaline Phosphatase 115 U/L (45-117) 03/11/20 16:30 Troponin I < 0.02 ng/mL (0.0-0.045) 03/12/20 01:59 Home Medications: Zolpidem Tartrate [Ambien*] 10 mg PO BEDTIME 07/07/13 Aspirin Chewable [Aspirin Chewable*] 81 mg PO BEDTIME 04/30/17 Atorvastatin Calcium 40 mg PO BEDTIME 04/30/17 Hydrocodone Bit/Acetaminophen [Hydrocodon-Acetaminoph 7.5-325] 1 pill PO TID PRN 03/02/19 Lidocaine 4% Patch [Lidoderm 5% Patch*] 2 patch TOP BEDTIME PRN 03/02/19 Gabapentin [Neurontin*] 300 mg PO TID 11/09/19 Nitroglycerin [Nitrostat*] 0.4 mg SL UD PRN #30 tab 11/10/19 Alendronate Sodium 35 mg PO EVERY 7TH DAY 03/11/20 Ascorbic Acid [Vitamin C] 500 mg PO BEDTIME 03/11/20 Diclofenac Sodium 1 coreen TOP DAILY PRN 03/11/20 Multivit-Min/Iron/Folic Acid/K [Adults Multivitamin Tablet] 1 each PO BEDTIME 03/11/20 Pantoprazole [Protonix Tab*] 40 mg PO BIDAC 03/11/20 Sotalol HCl [Betapace*] 80 mg PO BID 03/11/20 Warfarin Sodium [Coumadin] 2 mg PO DAILY AT SUPPER 03/11/20 Patient Discharge Instructions: follow up with PCP within 1 week. get your INR checked in 2-3 days. Continue home medications as prescribed, no changes made. Diet: AHA Activity: Ad fransisco Followup: Saurabh Dobson MD [Primary Care Provider] - Time spent managing pt's care (in minutes): 45
--- NOTE | 2020-03-12 15:25 | CON ---
Date of Consultation: 03/12/2020 Reason For Consultation: Atrial fibrillation with rapid ventricular response. History Of Present Illness: This is a 64-year-old female with known history of mechanical aortic savannah ve, possible severe Coumadin, however, her INR on Saturday in the ER was at 5 and she was given vitamin K as per report, and she held 2 doses. She has history of atrial fibrillation. She presented to [facility] emergency room with palpitations, some chest discomfort. She was in RVR. She was given multiple d oses of Lopressor and then Cardizem as well as sotalol and now she is back in sinus rhythm and sinus thor, has no chest pain anymore. Does not have any further complaints. Past Medical History: As outlined above in the HPI, history of atrial fibrillation, aortic valve rep lacement, depression. Medication: Refer to reconciliation sheet for detailed list. Allergies: MORPHINE AND FENTANYL. Family History: No premature coronary artery disease or cancer. Social History: Does not smoke or drink. Does not use any drugs. Review of Systems: All systems were reviewed and they were negative except what mentioned in the HPI. Physical Examination: Vital Signs: Temperature is 98.3, pulse 65, breathing at 15, blood pressure 132/62, saturating 98% o n room air. General: Pleasant middle-aged female, in no apparent distress. Head and neck: Pupils are equal and reactive to light. Intact eye movements. No JVD. No cervical lymphadenopathy. Neck: Supple. Thyroid is not enlarged. Lungs: Clear to auscultation bilaterally. No rhonchi, rales, or crackles. No accessory muscle use. Heart: Regular rate and rhythm. No extra sounds with mechanical sounds of aortic valve that appears to be functioning well. Lungs: Clear to auscultation bilaterally. No rhonchi, rales, or crackles. No accessory muscle use. Abdomen: Soft, nontender. Bowel sounds positive. No organomegaly. No masses or hernia. No rigidi ty or rebound. Extremities: No edema, clubbing, or cyanosis. Intact pulses. Skin: No rashes. Neurologic: Alert, awake, oriented x3. No acute focal deficits appreciated. Investigations: Cardiac enzymes x3 were negative. Creatinine is normal. White blood cell count 5.8 , hemoglobin is 10.0. Assessment/plan: Atrial fibrillation with rapid ventricular response. Now she is back in sinus. Re sume sotalol at the original dose and resume Coumadin to get INR therapeutic. At this point, no furt her chest pain. Adjust medications as required. Check TSH if that was not done and the patient stay s hemodynamically stable from the cardiac standpoint, she can be released home and follow up as an ou tpatient. SR/MODL Voice ID: [id number] Report ID: [id number]
[2020-03-12 15:57] VITALS: BP 120/58; TEMP 98
[2020-03-12] MEDS ORDERED: ATORVASTATIN 40 MG TAB PO SCH (21:00)
== END 2020-03-12 16:25 | disposition home or self-care (01) ==
LOC: ER 16:00 → INTOOBSV 18:55 → ERHOLD 18:55 → 2ND 21:18
PROVIDERS: ADMIT Hospitalist; ATTEND Hospitalist
DX: I48.0 Paroxysmal atrial fibrillation (principal); Z95.2 Presence of prosthetic heart valve; F32.9 Major depressive disorder, single episode, unspecified; K21.9 Gastro-esophageal reflux disease without esophagitis; M54.9 Dorsalgia, unspecified; G89.29 Other chronic pain; Z20.828 Contact with and (suspected) exposure to other viral communicable diseases; Z79.82 Long term (current) use of aspirin; I10 Essential (primary) hypertension; E78.5 Hyperlipidemia, unspecified; R07.9 Chest pain, unspecified; R94.31 Abnormal electrocardiogram [ECG] [EKG]
CPT/HCPCS: 93005 ×3; 85025 ×2; 80048 ×2; 36415 ×2; 83735; 84132; 85610 ×2; 80076; 84484 ×3; 83880; 71045; 96375; 96372; 96374; 99285; U0002; J1650 ×2; J2175 ×3; G0378

== ENCOUNTER 2020-03-31 23:44 | Observation (INO) | payer OTHER ==
--- OUTSIDE RECORDS SUMMARY | 2020-04-01 00:38 | XMS REPORT | Continuity of Care Document ---
:1955 Author Organization [facility] t Address [address] [place] [address] Care Team Providers Name Role Phone Sy LOVELL Attending Clinician Problems This patient has no known problems. Allergies, Adverse Reactions, Alerts This patient has no known allergies or adverse reactions. Medications This patient has no known medications. Procedures This patient has no known procedures. Encounters Start End Encounter Admission Attending Care Care Encounter Source Date/Time Date/Time Type Type Clinicians Facility Department ID 2020-03-29 2020-03-29 Office MELODY Dan [id number] 14:32:40 15:25:41 Visit Jamaica Blackman [id number] Bhavya [id number] Lonnie [id number] nal 059 Building Results This patient has no known results.
--- OUTSIDE RECORDS SUMMARY | 2020-04-01 00:39 | XMS REPORT | Summary of Care ---
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 Visit [facility] Jamaica Dan MD [address] [facility] [address] [place] [address] Atrial flutter, Professional Office Pob, Adc Lab Main unspecified type Building Phlebotomy Lab Professional Office Building [address] [place] [address] , [address] [place] [address] Allergies Active Allergy Reactions Severity Noted Date Comments Morphine Shortness of Breath High 04/29/2006 documented as of this encounter (statuses as of 03/22/2020) Medications Medication Sig Dispensed Refills Start Date [...] % (700 0 08/03/2016 Active mg/patch) patch sotaloL 80 mg tablet Take 1 tablet by 60 tablet 5 03/01/2020 Active mouth 2 (two) times daily. atorvastatin 40 mg Take 1 tablet by 30 tablet 5 03/01/2020 Active tabletIndications: Mixed mouth at hyperlipidemia bedtime. warfarin 2 mg Take 1 tablet by 30 tablet 1 03/17/2020 Active tabletIndications: mouth every Atrial flutter, evening. Take 3 unspecified type mg on T & and 2 mg 5 day/week documented as of this encounter (statuses as of 03/22/2020) Active Problems Problem Noted Date Mixed hyperlipidemia 12/02/2017 Essential hypertension 12/02/2017 Anticoagulated 12/02/2017 Coronary artery disease involving [place] coronary delgado ry of [place] heart 12/02/2017 without angina pectoris Coronary artery disease involving [place] heart without angina pectoris, 06/04/2017 unspecified vessel or lesion type Atrial flutter 07/16/2016 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] 02/10/2016 Chest pain with high risk for cardiac etiology 016 documented as of this encounter (statuses as of 03/22/2020) Social History Tobacco Use Types Packs/Day Years Used Date Never Smoker Smokeless Tobacco: Never Used Sex Assigned at Date Recorded Not on file COVID-19 Exposure Response Date Recorded In the last month, have you been in contact with No / Unsure 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 documented as of this encounter Last Filed Vital Signs Not on filedocumented in this encounter Nursing Notes Shante Jacobsen - 03/22/2020 3:30 PM CST Venipuncture collection performed by clean technique on the right anticubitus. Total of 1 attempts were made. Slight pressure and a bandage/dressing were applied to the site(s). The patient experiencedno complications. 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
--- OUTSIDE RECORDS SUMMARY | 2020-04-01 00:39 | XMS REPORT | Summary of Care ---
:1955 Author Organization [facility] Address [address] [place] [address] Care Team Providers Name Role Phone Nurse, Alex Unavailable Unavailable Ceasar Dobson Primary Care Provider Reason for Visit Reason Comments LAB WORK Auth/Cert Status Reason Specialty Diagnoses / Procedures Referred By Ricci abreu Referred To Contact Phlebotomy Diagnoses I48.92 Adc Pob Lab Draw Procedures PT/INR Professional Office Building [address] [place] [address] , [address] [place] [address] Phone: Fax: Encounter Details Date Type Department Care Team Description 03/15/2020 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 Visit [facility] Jamaica Dan MD [address] [facility] [address] [place] [address] Atrial flutter, Professional Office Pob, Adc Lab Main unspecified type Building Phlebotomy Lab Professional Office Building [address] [place] [address] , [address] [place] [address] Allergies Active Allergy Reactions Severity Noted Date Comments Morphine Shortness of Breath High 04/29/2006 documented as of this encounter (statuses as of 03/15/2020) Medications Medication Sig Dispensed Refills Start Date [...] mg/patch) patch warfarin 2 mg Take 1 tablet by 30 tablet 1 02/18/2020 Active tabletIndications: mouth every Atrial flutter, evening. 2 mg 1 unspecified type days/week and 1 mg 6 day/week sotaloL 80 mg tablet Take 1 tablet by 60 tablet 5 03/01/2020 Active mouth 2 (two) times daily. atorvastatin 40 mg Take 1 tablet by 30 tablet 5 03/01/2020 Active tabletIndications: Mixed mouth at hyperlipidemia bedtime. documented as of this encounter (statuses as of 03/15/2020) Active Problems Problem Noted Date Mixed hyperlipidemia 12/02/2017 Essential hypertension 12/02/2017 Anticoagulated 12/02/2017 Coronary artery disease involving [place] coronary delgado ry of [place] heart 12/02/2017 without angina pectoris Coronary artery disease involving [place] heart without angina pectoris, 06/04/2017 unspecified vessel or lesion type Atrial flutter 07/16/2016 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] 02/10/2016 Chest pain with high risk for cardiac etiology 016 documented as of this encounter (statuses as of 03/15/2020) Social History Tobacco Use Types Packs/Day Years Used Date Never Smoker Smokeless Tobacco: Never Used Sex Assigned at Date Recorded Not on file documented as of this encounter Last Filed Vital Signs Not on filedocumented in this encounter Nursing Notes Flavio Verduzco N - 03/15/2020 11:15 AM CST Venipuncture collection performed by clean technique on the left anticubitus. Total of 1 attempts were made. Slight pressure and a bandage/dressing were applied to the site(s). The patient experienced no complications. The following specimens were processed according to instructions and sent to [facility] laboratories per lab order on today: LT BLUE 1 SST RED LAV PPT DK GREEN (LiHep) DK GREEN (SodH) KONG DK BLUE (K2) DK BLUE (S) ACD Blood Culture NIPT/NTD documented in this encounter Plan of Treatment Date Type Specialty Care Team Description 03/29/2020 Office Visit Cardiology Jamaica Dan M D [address] [place] [address] [place] [address] [phone] Name Type Priority Associated Diagnoses Date/Ti me PROTHROMBIN TIME / INR LAB Routine Atrial flutter, 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
--- OUTSIDE RECORDS SUMMARY | 2020-04-01 00:39 | XMS REPORT | Summary of Care ---
:1955 Author Organization [facility] Address [address] [place] [address] Care Team Providers Name Role Phone Nurse, Alex Unavailable Unavailable Ceasar Dobson Primary Care Provider Reason for Visit Reason Comments Anticoagulation Encounter Details Date Type Department Care Team Description 03/15/2020 Telephone [facility] Cardiology- Catrina Dan MD Anticoagulation [place] [address] [facility] [address] [facility], [address] [place] [address] [place] [address] [phone] Allergies Active Allergy Reactions Severity Noted Date Comments Morphine Shortness of Breath High 04/29/2006 documented as of this encounter (statuses as of 03/17/2020) Medications Medication Sig Dispensed Refills Start Date [...] patch sotaloL 80 mg tablet Take 1 60 tablet 5 03/01/2020 Active tablet by mouth 2 (two) times daily. atorvastatin 40 mg Take 1 30 tablet 5 03/01/2020 Active tabletIndications: tablet by Mixed hyperlipidemia mouth at bedtime. warfarin 2 mg Take 1 30 tablet 1 03/17/2020 Activ e tabletIndications: tablet by Atrial flutter, mouth every unspecified type evening. Take 3 mg on T & TH and 2 mg 5 day/week warfarin 2 mg Take 1 30 tablet 1 02/18/2020 03/17/2020 Disc ontinued tabletIndications: tablet by Atrial flutter, mouth every unspecified type evening. 2 mg 1 days/week and 1 mg 6 day/week documented as of this encounter (statuses as of 03/17/2020) Active Problems Problem Noted Date Mixed hyperlipidemia 12/02/2017 Essential hypertension 12/02/2017 Anticoagulated 12/02/2017 Coronary artery disease involving [place] coronary delgado ry of [place] heart 12/02/2017 without angina pectoris Coronary artery disease involving [place] heart without angina pectoris, 06/04/2017 unspecified vessel or lesion type Atrial flutter 07/16/2016 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] 02/10/2016 Chest pain with high risk for cardiac etiology 016 documented as of this encounter (statuses as of 03/17/2020) Social History Tobacco Use Types Packs/Day Years Used Date Never Smoker Smokeless Tobacco: Never Used Sex Assigned at Date Recorded Not on file documented as of this encounter Last Filed Vital Signs Not on filedocumented in this encounter Miscellaneous Notes Telephone Encounter - Carmen Reyes RN - 03/17/2020 9:29 AM CSTPatients INR is 1.7 on 03/15/20. Verified current warfarin dose: [address] Dan recommends for patient to increase dose to 3mg T & TH and 2 mg 5 days a week and recheckin 2-3 weeks. Patient verbalized understanding SHAKER Telephone Encounter - Jamaica Dan MD - 03/16/2020 3:43 PM CSTThe dose is different from what we documented. Ok, change to 3 mg T/T, and 2 mg the other 5 days. INR 2-3 weeks. elephone Encounter - Carmen Reyes RN - 03/16/2020 1:44 PM FROG SHAKER Patients INR is 1.7 on 03/15/20. Verified current warfarin dose: [address] Dan recommends for patient to increase dose and recheck in 2-3 weeks. SHAKER Telephone Encounter - Jamaica Dan MD - 03/15/2020 11:50 PM CSTINR is 1.7, low. Change warfarin to 2 [id number] a week and 1 [id number] a wk.INR 2-3wks. SHAKER documented in this encounter Plan of Treatment Date Type Specialty Care Team Description 03/29/2020 Office Visit Cardiology Jamaica Dan M D [address] [place] [address] 15 [phone] Health Maintenance Due Date Last Done Comments [...] Effective Phone Address T ype Group Dates [facility] [id number] 2018-Prese Medic are Adv HEALTHCARE - HEALTHCARE DUAL nt H [place] MANAGED COMPLETE O MEDICARE [place] [employer] [place] [id number] 2013-Prese Medicaid HEALTHCARE COMM PLUS nt PLAN - MANAGED MEDICAID documented as of this encounter
--- OUTSIDE RECORDS SUMMARY | 2020-04-01 00:39 | XMS REPORT | Summary of Care ---
:1955 Author Organization [facility] Address [address] [place] [address] Care Team Providers Name Role Phone Nurse, Anticoag Unavailable Unavailable Ceasar Dobson Primary Care Provider Encounter Details Date Type Department Care Team Description 03/22/2020 Orders Only [facility] Doctor Unassigned, No [address] [facility] [place] [address] [address] [place] [address] Allergies Active Allergy Reactions Severity Noted Date [...] 3 unspecified type mg on T & TH and 2 mg 5 day/week documented as of this encounter (statuses as of 03/22/2020) Active Problems Problem Noted Date Mixed hyperlipidemia 12/02/2017 Essential hypertension 12/02/2017 Anticoagulated 12/02/2017 Coronary artery disease involving [place] coronary delgado ry of [place] heart 12/02/2017 without angina pectoris Coronary artery disease involving [place] heart without angina pectoris, 06/04/2017 unspecified vessel [...] with No / Unsure 03/22/2020 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 documented as of this encounter Last Filed Vital Signs Not on filedocumented in this encounter Plan of Treatment Date Type Specialty Care Team Description 03/22/2020 [employer] Visit Phlebotomy Jamaica Dan MD [address] [place] [address] [phone] Pofredy, Andre Lab Main 03/29/2020 Office Visit Cardiology Jamaica Dan M D [address] [place] [address] 15 [phone] Health Maintenance Due Date Last Done Comments [...] Diagnosis Comme nts ASSIGNMENT OF BENEFITS Routine 03/22/2020 3:14 PM GLUE SPECIALTY SUPERVISOR documented in this encounter Results Not on filedocumented in this encounter Insurance Payer Benefit Plan / Subscriber ID Effective Phone Address T ype Group Dates [facility] [id number] 2018-Prese Medic are Adv HEALTHCARE - HEALTHCARE DUAL nt H [place] MANAG[place] COMPLETE HMO MEDIC[place] [place] [id number] 2013-Prese Medicaid HEALTHCARE COMM PLUS nt PLAN - MANAGED MEDICAID documented as of this encounter
--- OUTSIDE RECORDS SUMMARY | 2020-04-01 00:40 | XMS REPORT | Summary of Care ---
:1955 Author Organization [facility] Address [address] [place] [address] Care Team Providers Name Role Phone Nurse, Alex Unavailable Unavailable Ceasar Dobson Primary Care Provider Reason for Visit Reason Comments Anticoagulation Encounter Details Date Type Department Care Team Description 03/23/2020 Telephone [facility] Cardiology- Catrina Dan MD Anticoagulation [place] [address] [facility] 146 [facility], [address] [place] [address] [place] [address] [phone] Allergies Active Allergy Reactions Severity Noted Date Comments Morphine Shortness of Breath High 04/29/2006 documented as of this encounter (statuses as of 03/24/2020) Medications Medication Sig Dispensed Refills Start Date [...] as of this encounter (statuses as of 03/24/2020) Active Problems Problem Noted Date Mixed hyperlipidemia 12/02/2017 Essential hypertension 12/02/2017 Anticoagulated 12/02/2017 Coronary artery disease involving sycuan coronary delgado ry of sycuan heart 12/02/2017 without angina pectoris Coronary artery disease involving sycuan heart without angina pectoris, 06/04/2017 unspecified vessel or lesion type Atrial flutter 07/16/2016 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] 02/10/2016 Chest pain with high risk for cardiac etiology 016 documented as of this encounter (statuses as of 03/24/2020) Social History Tobacco Use Types Packs/Day Years Used Date Never Smoker Smokeless Tobacco: Never Used Sex Assigned at Date Recorded Not on file COVID-19 Exposure Response Date Recorded In the last month, have you been in contact with No / Unsure 03/22/2020 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 documented as of this encounter Last Filed Vital Signs Not on filedocumented in this encounter Miscellaneous Notes Telephone Encounter - Carmen Reyes RN - 03/24/2020 8:58 AM CSTPatients INR is 3.4 on 03.23.20. Verified current warfarin dose: 3 mg T/T, and 2 mg the other [address] Dan recommends for patient to 3mg 1 day a week and 2 mg 6 days a week and recheck in 2-3 weeks.Patient verbalized understanding via Teach-Back. OR SITE MANAGER Telephone Encounter - Carmen Reyes RN - 03/23/2020 3:00 PM CSTAttempted to contact patient regarding below results and recommendations. LVM to return call to clinic. OR SITE MANAGER Telephone Encounter - Carmen Reyes RN - 03/23/2020 1:25 PM CSTAttempted to contact patient regarding below results and recommendations. LVM to return call to clinic. OR SITE MANAGER Telephone Encounter - Jamaica Dan MD - 03/23/2020 9:00 AM CSTINR 3.4. High. Hold warfarin for 1 day. Then: 3mg 1 day a week and 2 mg 6 days a weekand recheck in 2-3weeks. documented in this encounter Plan of Treatment Date Type Specialty Care Team Description 03/29/2020 Office Visit Cardiology Jamaica Dan M D [address] [place] [address] 15 [phone] Health Maintenance Due Date Last Done Comments [...] Subscriber ID Effective Phone Address T e [facility] [id number] 2018-Prese Medic are Adv HEALTHCARE - HEALTHCARE DUAL nt H MO MANAGED COMPLETE HMO MEDICARE [place] [employer] [place] [id number] 2013-Prese Medicaid HEALTHCARE COMM PLUS nt PLAN - MANAGED MEDICAID documented as of this encounter
--- OUTSIDE RECORDS SUMMARY | 2020-04-01 00:40 | XMS REPORT | Summary of Care ---
:1955 Author Organization [facility] Address [address] [place] [address] Care Team Providers Name Role Phone Nurse, Alex Unavailable Unavailable Ceasar Dobson Primary Care Provider Reason for Referral (Routine) Status Reason Specialty Diagnoses / Referred By Referred To Procedures Contact Contact New Request Orthopedic Surgery Diagnoses Right shoulder pain, unspecified chronicity Jamaica Dan, Procedures CONSULT ORTHOPAEDIC SURGERY [address] [place] [address] [address] [place] [address] Reason for Visit Reason Comments Follow-up 7mo Medical Records [facility] Encounter Details Date Type Department Care Team Description 03/29/2020 Office Visit [facility] Jamaica Dan M D Atrial flutter, unspecified type (Primar y Dx); Cardiology- [address] Essential hypertension; [address] [place] [address] Mixed hyperlipidemia; Drive, [address] Coronary artery disease involving point hope ira coronary artery of [place] heart without angina pectoris; [place] [address] 15 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]; [id number] Anticoagulated; [phone] Dilation of descending aorta; Right shoulder pain, unspecified chronicity Allergies Active Allergy Reactions Severity Noted Date Comments Morphine Shortness of Breath High 04/29/2006 documented as of this encounter (statuses as of 03/29/2020) Medications Medication Sig Dispensed Refills Start Date [...] as of this encounter (statuses as of 03/29/2020) Active Problems Problem Noted Date Mixed hyperlipidemia 12/02/2017 Essential hypertension 12/02/2017 Anticoagulated 12/02/2017 Coronary artery disease involving point hope ira coronary delgado ry of point hope ira heart 12/02/2017 without angina pectoris Coronary artery disease involving [place] ira heart without angina pectoris, 06/04/2017 unspecified vessel or lesion type Atrial flutter 07/16/2016 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] 02/10/2016 Chest pain with high risk for cardiac etiology 016 documented as of this encounter (statuses as of 03/29/2020) Social History Tobacco Use Types Packs/Day Years Used Date Never Smoker Smokeless Tobacco: Never Used Sex Assigned at Date Recorded Not on file COVID-19 Exposure Response Date Recorded In the last month, have you been in contact with No / Unsure 03/29/2020 2: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 documented as of this encounter Last Filed Vital Signs Vital Sign Reading Time Taken Comments Blood Pressure 127/61 03/29/2020 3:02 PM WINDOWS AND DOORS INSTALLER Pulse 58 03/29/2020 3:02 PM WINDOWS AND DOORS INSTALLER Temperature - - Respiratory Rate 19 03/29/2020 3:02 PM WINDOWS AND DOORS INSTALLER Oxygen Saturation 98% 03/29/2020 3:02 PM WINDOWS AND DOORS INSTALLER Inhaled Oxygen Concentration - - Weight 47.4 kg (104 lb 8 oz) 03/29/2020 3:02 PM WINDOWS AND DOORS INSTALLER Height 161.4 cm (5' 3.56") 03/29/2020 3:02 PM WINDOWS AND DOORS INSTALLER Body Mass Index 18.19 03/29/2020 3:02 PM WINDOWS AND DOORS INSTALLER documented in this encounter Progress Notes Jamaica Dan MD - 03/29/2020 2:40 PM CST CARDIOLOGY CLINIC NOTE 03/29/2020 Reason for Referral/Presenting Complaint: Atrial Flutter, CAD, HTN, HLD and AVR History of Present Illness: Michelle Saavedra is a 64 years old female with PMH of HTN, HLD, mechanical AVR, descending thoracic aorta aneurysm, atrial flutter and CAD presenting to clinic for follow up. She underwent mechanical AVR in [address] [facility] for possible AR. On warfarin with INR goal 2.5-3.5. On ASA as well. No bleeding. Atrial flutter s/p DCC x 3. First time in [address] [facility]. 2nd time in 07/2016 in [place]. Most recent one in 04/2017 in [facility]. Currently she is on sotalol. On 04/20/2018 she went to [facility] ER for palpitations and racing heart. EKG showed 2:1 Aflutter. She also had chest pain, weakness, and dizziness lasting for hours. In 02/2020 she was admitted to [facility] for Afib RVR--she was off sotalol and warfarin for a few days. It converted after sotalol. CT showed descending thoracic aorta 3.8 cm. Lost a few lbs. Past Medical History: Past Medical History: Diagnosis Date Aortic valve replaced 1989 CAD (coronary artery disease) Hyperlipidemia Hypertension Family History: Family History Problem Relation Age of Onset Diabetes Unknown T2DM, multiple family members Diabetes Mother Diabetes Sister Current Medication: Current Outpatient Medications Medication Sig Dispense Refill warfarin 2 mg tablet Take 1 tablet by mouth every evening. Take 3 mg on T & TH and 2 mg 5 day/week 30 tablet 1 atorvastatin 40 mg tablet Take 1 tablet by mouth at bedtime. 30 tablet 5 sotaloL 80 mg tablet Take 1 tablet by mouth 2 (two) times daily. 60 tablet 5 gabapentin 300 mg capsule Take by mouth daily. lidocaine 5 % (700 mg/patch) patch pantoprazole 40 mg EC tablet zolpidem 10 mg tablet aspirin 81 mg chewable tablet Take 1 tablet by mouth daily. 30 tablet 3 ferrous sulfate 325 mg (65 mg iron) tablet Take 1 tablet by mouth 3 (three) times daily with meals. 90 tablet 3 HYDROcodone-acetaminophen 10-325 mg tablet NITROGLYCERIN 0.4 MG SL SUBL 1 Tab [...] Financial resource strain: Not on file Food insecurity Worry: Not on file Inability: Not on file Transportation needs Medical: Not on file Non-medical: Not on file Tobacco Use Smoking status: Never Smoker Smokeless tobacco: Never Used Substance and Sexual Activity Alcohol use: Not on file Drug use: Not on file Sexual activity: Not on file Lifestyle Physical activity Days per week: Not on file Minutes per session: Not on file Stress: Not on file Relationships Social connections Talks on phone: Not on file Gets together: Not on file Attends congregation service: Not on file Active member of club or organization: Not on file Attends meetings of clubs or organizations: Not on file Relationship status: Not on file Intimate partner violence Fear of current or ex partner: Not [...] negative GEN: negative Psych: negative Physical Examination: Vitals: 03/29/20 1502 BP: 127/61 BP Location: Left arm Patient Position: Sitting BP CUFF SIZE: Adult Small Pulse: 58 Resp: 19 SpO2: 98% Weight: 104 lb 8 oz (47.4 kg) Height: 5' 3.56" (1.614 m) Constitutional: alert and oriented x 3 (person, place and date/time); no apparent distress ENT: normocephalic atraumatic, supple, no lymphadenopathy, no bruits, no JVD Lungs: clear to auscultation bilaterally Cardiovascular: S1, S2 normal, regular; no murmurs, rubs or gallops GI: soft; non-tender; non-distended; normoactive bowel sounds : not examined Musculoskeletal: Extremities: no clubbing, cyanosis, or edema Skin: no rashes Neuro: no focal deficits EKG: NSR, non-specific ST-T changes, HR 63 04/25/2018--Sinus bradycardia, HR 51 bpm 01/05/2019--Sinus bradycardia, HR 48 bpm LABS / DATA: CBC WBC x10^3 (/CMM) Date Value 12/14/2010 6.5 WBC (10*3/L) Date Value 10/20/2019 4.77 RBC x10^6 (/CMM) Date Value 12/14/2010 3.99 RBC (10*6/L) Date Value 10/20/2019 3.57 (L) PLT x10^3 (/CMM) Date Value 12/14/2010 238 PLT (10*3/L) Date Value 10/20/2019 203 HGB Date Value 10/20/2019 11.2 g/dL (L) 12/14/2010 11.9 G/DL HCT (%) Date Value 10/20/2019 35.6 (L) 12/14/2010 38.0 BMP NA Date Value 10/20/2019 140 mmol/L 12/14/2010 141 MMOL/L K Date Value 10/20/2019 4.0 mmol/L 12/14/2010 4.7 MMOL/L CALCIUM Date Value 10/20/2019 9.3 mg/dL 12/14/2010 9.3 MG/DL CL Date Value 10/20/2019 104 mmol/L 12/14/2010 102 MMOL/L BUN Date Value 10/20/2019 12 mg/dL 12/14/2010 15 MG/DL CREATININE Date Value 10/20/2019 0.85 mg/dL 12/14/2010 1.00 MG/DL GLUCOSE Date Value 10/20/2019 88 mg/dL 12/14/2010 90 MG/DL CO2 TOTAL Date Value 10/20/2019 31 mmol/L 12/14/2010 29 MMOL/L Hepatic Function Panel ALBUMIN Date Value 10/20/2019 3.9 g/dL 12/11/2010 4.5 G/DL T PROTEIN Date Value 10/20/2019 6.9 g/dL 12/11/2010 8.4 G/DL (H) TOTAL BILI Date Value 10/20/2019 0.6 mg/dL 12/11/2010 0.8 MG/DL BILI UNCON Date Value 10/20/2019 0.8 mg/dL 12/11/2010 0.6 MG/DL BILI CONJ Date Value 10/20/2019 0.0 mg/dL 12/11/2010 0.0 MG/DL ALT(SGPT) (U/L) Date Value 03/12/2016 24 12/11/2010 19 ALTv (U/L) Date Value 10/20/2019 10 AST(SGOT) (U/L) Date Value 10/20/2019 23 12/11/2010 26 ALK PHOS (U/L) Date Value 10/20/2019 78 12/11/2010 118 Lipid Panel: CHOL Date Value 10/20/2019 149 mg/dL 12/11/2010 272 MG/DL (H) LDL CHOL Date Value 10/20/2019 61 mg/dL 12/11/2010 192 MG/DL (H) HDL CHOL (MG/DL) Date Value 12/11/2010 61 HDL (mg/dL) Date Value 10/20/2019 57 TRIG Date Value 10/20/2019 153 mg/dL 12/11/2010 96 MG/DL Thyroid Panel : TSH Date Value 10/20/2019 0.03 mIU/L (L) 12/11/2010 1.92 uIU/mL No results found for: [...] defect of inferoapical wall suggests ischemia. [facility] records 05/2017 EKG--Aflutter 2:1 AVB ECHO--Normal LVEF Assessment/Plan: ICD-10-CM ICD-9-CM 1. Atrial flutter, unspecified type I48.92 427.32 2. Essential hypertension I10 401.9 3. Mixed hyperlipidemia E78.2 272.2 4. Coronary artery disease involving point hope ira coronary artery of point hope ira heart without angina rsexabgcD63.10 414.01 5. 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] Z95.2 V43.3 6. Anticoagulated Z79.01 V58.61 7. Dilation of descending aorta I77.819 447.70 8. Right shoulder pain, unspecified chronicity M25.511 719.41 Atrial Flutter--s/p DCC x 3. Now on sotalol. On Warfarin. Last episode of Afib in 02/2020. Converted. Discussed refer to EP for ablation consideration [...] 211 in 02/2018. LDL 55 in 10/2018. Dilated descending thoracic aorta--will get periodic followed. R shoulder pain--refer to orthopaedic medicine. RTC - 6 months. Jamaica Dan MD, [facility] [place] Director Outcomes, Division of Cardiology [facility] documented in this encounter Plan of Treatment Date Type Specialty Care Team Description 04/01/2020 Office Visit Orthopedic Surgery Amber Chavez MD [address] [place] [address] [phone] 09/27/2020 Office Visit Cardiology Jamaica Dan M D [address] [facility] [address] [place] [address] 15 Name Type Priority Associated Diagnoses Order S chedule EKG-12 LEAD ROUTINE HEART STATION Routine Essential hypertensi on Ordered: 03/29/2020 Health Maintenance Due Date Last Done Comments [...] 2019 Breast Cancer Screening (MAMMOGRAM) 10/29/2020 10/30/2019 Depression Screening 03/29/2021 03/29/2020 documented as of this encounter Results Not on filedocumented in this encounter Visit Diagnoses Diagnosis Atrial flutter, unspecified type - Prima ry Essential hypertension Unspecified essential hypertension Mixed hyperlipidemia Coronary artery disease involving point hope ira coronary artery of point hope ira heart without angina pectoris 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] Heart valve replaced by other means Anticoagulated Encounter for long-term (current) use of anticoagulants Dilation of descending aorta Right shoulder pain, unspecified chronic ity documented in this encounter Insurance Payer Benefit Plan / Subscriber ID Effective Phone Address T e Group [facility] [id number] 2018-Prese Medic are Adv HEALTHCARE - HEALTHCARE DUAL nt H MO MANAGED COMPLETE O MEDICARE [place] [place] [id number] 2013-Prese Medicaid HEALTHCARE COMM PLUS nt PLAN - MANAGED MEDICAID documented as of this encounter
--- OUTSIDE RECORDS SUMMARY | 2020-04-01 00:41 | XMS REPORT | Summary of Care ---
:1955 Author Organization [facility] Address [address] [place] [address] Care Team Providers Name Role Phone Nurse, Alex Unavailable Unavailable Ceasar Dobson Primary Care Provider Reason for Referral (Routine) Status Reason Specialty Diagnoses / Referred By Referred To Procedures Contact Contact New Request Orthopedic Surgery Diagnoses Right shoulder pain, unspecified chronicity Jamaica Dan, Procedures CONSULT ORTHOPAEDIC SURGERY [address] [place] [address] [address] [place] [address] Reason for Visit Reason Comments Follow-up 7mo Medical Records [facility] Encounter Details Date Type Department Care Team Description 03/29/2020 Office Visit [facility] Jamaica Dan M D Atrial flutter, unspecified type (Primar y Dx); Cardiology- [address] Essential hypertension; [address] [place] [address] Mixed hyperlipidemia; [address] Coronary artery disease involving pokagon coronary artery of pokagon heart without angina pectoris; [place] [address] 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]; [id number] Anticoagulated; [phone] Dilation of descending aorta; Right shoulder pain, [...] 12/02/2017 Anticoagulated 12/02/2017 Coronary artery disease involving pokagon coronary delgado ry of pokagon heart 12/02/2017 without angina pectoris Coronary artery disease involving pokagon heart without angina pectoris, 06/04/2017 unspecified vessel [...] with No / Unsure 03/29/2020 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 documented as of this encounter Last Filed Vital Signs Vital Sign Reading Time Taken Comments Blood Pressure 127/61 03/29/2020 3:02 PM DRYWALL WORKER Pulse 58 03/29/2020 3:02 PM DRYWALL WORKER Temperature - - Respiratory Rate 19 03/29/2020 3:02 PM DRYWALL WORKER Oxygen Saturation 98% 03/29/2020 3:02 PM DRYWALL WORKER Inhaled Oxygen Concentration - - Weight 47.4 kg (104 lb 8 oz) 03/29/2020 3:02 PM DRYWALL WORKER Height 161.4 cm (5' 3.56") 03/29/2020 3:02 PM DRYWALL WORKER Body Mass Index 18.19 03/29/2020 3:02 PM DRYWALL WORKER documented in this encounter Progress Notes Jamaica [...] She underwent mechanical AVR in 1989 in [facility] for possible AR. On warfarin with INR goal 2.5-3.5. On ASA as well. No bleeding. Atrial flutter s/p DCC x 3. First time in 2011 in [facility]. 2nd time in 07/2016 in [place]. Most recent one in 04/[address] [facility]. Currently she is on sotalol. On 04/20/2018 she went to [facility] ER for palpitations and racing heart. EKG showed 2:1 Aflutter. She also had chest pain, weakness, and dizziness lasting for hours. In 02/2020 she was admitted to [facility] for Afib RVR--she was off sotalol and [...] file Gets together: Not on file Attends scientology service: Not on file Active member of [...] E78.2 272.2 4. Coronary artery disease involving pokagon coronary artery of pokagon heart without angina [id number] 414.01 5. 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] Z95.2 [...] RTC - 6 months. Jamaica Dan MD, [facility] [place] Site Supervising Technical Operator, Division of Cardiology [facility] documented in this encounter Plan of Treatment Date Type Specialty Care Team Description 04/01/2020 Office Visit Orthopedic Surgery Amber Chavez MD [address] [place] [address] [phone] 09/27/2020 Office Visit Cardiology Jamaica Dan M D [address] [facility] [address] [place] [address] 15 Name Type Priority Associated Diagnoses Order [...] hypertension Mixed hyperlipidemia Coronary artery disease involving pokagon coronary artery of pokagon heart without angina pectoris 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] Heart valve replaced by other means Anticoagulated Encounter for long-term (current) use of anticoagulants Dilation of descending aorta Right shoulder pain, unspecified chronic ity documented in this encounter Insurance Payer Benefit Plan / Subscriber ID Effective Phone Address T e Group [facility] [id number] 2018-Prese Medic are Adv HEALTHCARE - HEALTHCARE DUAL nt H MO MANAGED COMPLETE O MEDICARE [place] [id number] 2013-Prese Medicaid HEALTHCARE COMM PLUS nt PLAN - MANAGED MEDICAID documented as of this encounter
[2020-04-01 02:35] LABS: Absolute Lymphocytes (CBC) 1.5 K/uL (0.7-4.9); Basophils % 1.1 % (0-1.3); Hematocrit 32.7 % (36.0-45.0); Lymphocytes % 25.5 % (15.3-44.8); MPV 9.4 fL (7.6-11.3)
[2020-04-01 02:44] LABS: Protime INR 3.97
[2020-04-01 03:21] LABS: ALT/SGPT 22 U/L (12-78); AST/SGOT 24 U/L (15-37); Albumin 3.8 g/dL (3.4-5.0); Alkaline Phosphatase 107 U/L (45-117); BUN Blood Urea Nitrogen 15 mg/dL (7-18); Bicarbonate 32 mmol/L (21-32); Bilirubin Direct 0.1 mg/dL (0-0.2); Bilirubin Total 0.3 mg/dL (0.2-1.0); Glucose Level 87 mg/dL (74-106); Lipase 99 U/L (73-393); Magnesium 2.1 mg/dL (1.8-2.4); NT PRO-BNP 661 pg/mL (<125); Potassium 4.2 mmol/L (3.5-5.1); Protein, Total 7.9 g/dL (6.4-8.2); Sodium Level 144 mmol/L (136-145); Troponin (Emerg Dept Use Only) < 0.02 ng/mL (0.0-0.045)
[2020-04-01] MEDS ORDERED: PROMETHAZINE INJ 25 MG/ML AMP ONE (05:23)
[2020-04-01] MEDS ORDERED: MEPERIDINE HCL 25 MG/ML SYR ONE ×2 (05:24→11:56)
--- NOTE | 2020-04-01 05:37 | P.HP ---
Certification for Inpatient Patient admitted to: Observation With expected LOS: <2 Midnights Patient will require the following post-hospital care: None Practitioner: I am a practitioner with admitting privileges, knowledge of patient current condition, hospital course, and medical plan of care. 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 Patient was worked up in the emergency room for the chest pain. 1st troponin was negative. EKG without acute changes and chest x-ray without acute changes. Sodium 144, potassium 4.2, chloride 107, bicarb 32, BUN 15, creatinine 0.97, glucose 87. White cell count 5.9. Mild anemia present with a hemoglobin of 10.8 and hematocrit 37.7 with a platelet of 210. INR 3.97. Patient is on warfarin cur rently and daily aspirin for mechanical heart valve. Patient with mild pain that persists in the emergency room. Medicine consult at that time for chest pain admission and further workup. Home medications list reviewed: Yes - Past Medical/Surgical History Diabetic: No -: chronic back pain -: depression -: gallstones -: kidney infection -: GERD -: mechanical aorta -: palpitations -: Atrial fibrillation -: aortic valve replacement -: cardioversion -: tubal ligation - Family History Brother -: Heart disease, Cancer Notes: heart attack Mother -: Heart disease, Diabetes Notes: of heart attack Father -: Heart disease Notes: of heart attack Sister -: Heart disease, Diabetes, Cancer Notes: sisters x2 - DM. sister x1 - heart attack. sister- lung cancer - Social History Smoking Status: Never smoker Smoking therapy provided: No Alcohol use: No CD- Drugs: No Caffeine use: Yes Place of Residence: Home <Scott Degroot - Last Filed: 04/01/20 05:31> Date of Service: 03/31/20 <SabillonJamie herreramarie Kathy - Last Filed: 04/06/20 16:25> Allergies morphine Allergy (Intermediate, Verified 04/05/18 04:34) panic ATTACK; shaking fentanyl Allergy (Verified 04/05/18 04:34) Itching Home Medications: Zolpidem Tartrate [Ambien*] 10 mg PO BEDTIME 07/07/13 Aspirin Chewable [Aspirin Chewable*] 81 mg PO BEDTIME 04/30/17 Atorvastatin Calcium 40 mg PO BEDTIME 04/30/17 Hydrocodone Bit/Acetaminophen [Hydrocodon-Acetaminoph 7.5-325] 1 pill PO TID PRN 03/02/19 Lidocaine 4% Patch [Lidoderm 5% Patch*] 2 patch TOP BEDTIME PRN 03/02/19 Gabapentin [Neurontin*] 300 mg PO TID 11/09/19 Nitroglycerin [Nitrostat*] 0.4 mg SL UD PRN #30 tab 11/10/19 Alendronate Sodium 35 mg PO EVERY 7TH DAY 03/11/20 Ascorbic Acid [Vitamin C] 500 mg PO BEDTIME 03/11/20 Diclofenac Sodium 1 coreen TOP DAILY PRN 03/11/20 Multivit-Min/Iron/Folic Acid/K [Adults Multivitamin Tablet] 1 each PO BEDTIME 03/11/20 Pantoprazole [Protonix Tab*] 40 mg PO BIDAC 03/11/20 Sotalol HCl [Betapace*] 80 mg PO BID 03/11/20 Warfarin Sodium [Coumadin] 2 mg PO DAILY AT SUPPER 03/11/20 Cyclobenzaprine HCl [Flexeril] 5 mg PO Q8H #30 tablet 04/01/20 Methylprednisolone [Medrol dosepack] 4 mg PO DIRECTED #1 violetta 04/01/20 Review of Systems General: Unremarkable Eyes: Unremarkable ENT: Unremarkable Respiratory: Shortness of Breath Cardiovascular: Chest Pain Gastrointestinal: Unremarkable Genitourinary: Unremarkable Musculoskeletal: Shoulder Pain, Back Pain Integumentary: Unremarkable Neurological: Unremarkable Lymphatics: Unremarkable <Scott Degroot - Last Filed: 04/01/20 05:31> Physical Examination - Vital Signs Temperature: 98 F Blood Pressure: 128/54 Pulse: 67 Respirations: 60 Pulse Ox (%): 95 (Room air) - Physical Exam General: Alert, In no apparent distress, Oriented x3, Cooperative HEENT: PERRLA, Mucous membr. moist/pink, EOMI Neck: Supple, 2+ carotid pulse no bruit, JVD not distended, No Thyromegaly Respiratory: Clear to auscultation bilaterally, Normal air movement Cardiovascular: No edema, Normal pulses, Regular rate/rhythm, Abnormal S1 S2, Systolic murmur Capillary refill: <2 Seconds Gastrointestinal: Normal bowel sounds, Soft and benign, Non-distended, No ascites, No tenderness, No masses, No rebound, No guarding Musculoskeletal: No clubbing, No swelling, No contractures, No erythema, No tenderness, No warmth Integumentary: No rashes, No breakdown, No significant lesion, No tenderness/swelling, No erythema, No warmth, No cyanosis Neurological: Normal speech, Normal strength at 5/5 x4 extr, Normal tone, Sensation intact, Cranial nerves 3-12 intact, Normal affect Lymphatics: No axilla or inguinal lymphadenopathy - Studies Laboratory Data (last 24 hrs) 04/01/20 02:00: PT 45.6 H, INR 3.97 04/01/20 02:00: WBC 5.9, Hgb 10.8 L, Hct 32.7 L, Plt Count 210 04/01/20 02:00: Sodium 144, Potassium 4.2, BUN 15, Creatinine 0.97, Glucose 87, Magnesium 2.1, Total Bilirubin 0.3, AST 24, ALT 22, Alkaline Phosphatase 107, Lipase 99 <Scott Degroot - Last Filed: 04/01/20 05:31> Assessment and Plan - Problems (Diagnosis) (1) Chest pain Onset Date: 06/15/15 Status: Acute Qualifiers: Chest pain type: unspecified (2) Palpitations Onset Date: 05/01/17 Status: Acute (3) Mechanical heart valve present Onset Date: 05/01/17 Status: Chronic - Plan 1. Patient admitted to telemetry floor for further monitoring of chest pain 2. Serial troponins will be drawn for further assessment of the chest pain to ensure they do not increase 3. EKGs as necessary 4. Pain medicine and nausea medicine given for the chest pain 5. Will monitor the INR as she is slightly hyper therapeutic. Should be in range between 2.5 and 3.5 based on mechanical heart valve. Will adjust as needed 6. Cardiology has been consulted for the chest pain. Will wait for further assessment 7. Recheck labs in the morning for chemistry stability and to ensure CBC has not changed. Discharge Plan: Home Plan to discharge in: 24 Hours - Advance Directives Does patient have a Living Will: No Does patient have a Durable POA for Healthcare: No - Code Status/Comfort Care Code Status Assessed: No Critical Care: No Time Spent Managing Pts Care (In Minutes): 70 <Scott Degroot - Last Filed: 04/01/20 05:31> Date of Service: 03/31/20 Events of the past 24 hours has been noted. Agree with findings as mentioned above. Serial troponins and monitor EKG with possible discharge in the next 24 hours. <Cruz Sabillon - Last Filed: 04/06/20 16:25>
[2020-04-01 07:37] VITALS: BMI 19.0
[2020-04-01] MEDS ORDERED: MEPERIDINE HCL 25 MG/ML SYR IV PRN (07:44)
[2020-04-01] MEDS ORDERED: ONDANSETRON 4 MG/2 ML VIAL IV PRN (07:44)
[2020-04-01] MEDS ORDERED: PROMETHAZINE INJ 25 MG/ML AMP IV PRN (07:44)
[2020-04-01] MEDS ORDERED: ASPIRIN EC 81 MG TAB PO ONE (08:25)
[2020-04-01 08:44] LABS: Protime INR 4.29
--- NOTE | 2020-04-01 08:50 | RAD REPORT ---
EXAM DESCRIPTION: RAD - Chest Single View - 04/01/2020 7:24 am CLINICAL HISTORY: CHEST PAIN COMPARISON: March 11 TECHNIQUE: AP portable chest image was obtained 04/01/2020 7:24 am . FINDINGS: Interstitial fibrotic lung pattern is present matching comparison. No peripheral mass, con solidation or failure finding. Sternotomy wires are in place. Trachea is midline. Heart and vasculature are normal. No measurable pl eural effusion and no pneumothorax. No acute bone finding identified. S shaped thoracolumbar scoliosi s present. Lumbar component is only partially imaged. . No acute aortic findings suspected. IMPRESSION: Chronic interstitial lung disease similar to comparison. No acute finding.
[2020-04-01] MEDS ORDERED: ASPIRIN EC 81 MG TAB PO SCH (09:00)
[2020-04-01] MEDS ORDERED: ONDANSETRON 4 MG/2 ML VIAL ONE (11:55)
[2020-04-01 12:07] VITALS: BP 121/49; TEMP 97.9
[2020-04-01 12:28] VITALS: O2SAT 100
--- NOTE | 2020-04-01 12:53 | P.DS ---
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 Patient was worked up in the emergency room for the chest pain. 1st troponin was negative. EKG without acute changes and chest x-ray without acute changes. Sodium 144, po tassium 4.2, chloride 107, bicarb 32, BUN 15, creatinine 0.97, glucose 87. White cell count 5.9. Mild anemia present with a hemoglobin of 10.8 and hematocrit 37.7 with a platelet of 210. INR 3.97. Patient is on warfarin currently and daily aspirin for mechanical heart valve. Patient with mild pain that persists in the emergency room. Medicine consult at that time for chest pain admission and further workup. Hospital Course: Patient troponins have been negative. She will follow with cardiology as an outpatient for further intervention. She may need further testing including echocardiogram or stress test. At this time she is stable for discharge home. Vital Signs/Physical Exam: Temp Pulse Resp BP Pulse Ox 97.9 F 49 L 18 121/49 L 97 04/01/20 12:00 04/01/20 12:00 04/01/20 12:00 04/01/20 12:00 04/01/20 12:00 General: Alert, In no apparent distress, Oriented x3 Laboratory Data at Discharge: WBC 5.9 K/uL (4.3-10.9) 04/01/20 02:00 Hgb 10.8 g/dL (12.0-15.0) L 04/01/20 02:00 Hct 32.7 % (36.0-45.0) L 04/01/20 02:00 Plt Count 210 K/uL (152-406) 04/01/20 02:00 PT 49.2 SECONDS (9.5-12.5) H 04/01/20 08:16 INR 4.29 H* 04/01/20 08:16 Sodium 144 mmol/L (136-145) 04/01/20 02:00 Potassium 4.2 mmol/L (3.5-5.1) 04/01/20 02:00 BUN 15 mg/dL (7-18) 04/01/20 02:00 Creatinine 0.97 mg/dL (0.55-1.3) 04/01/20 02:00 Glucose 87 mg/dL (74-106) 04/01/20 02:00 Magnesium 2.1 mg/dL (1.8-2.4) 04/01/20 02:00 Total Bilirubin 0.3 mg/dL (0.2-1.0) 04/01/20 02:00 AST 24 U/L (15-37) 04/01/20 02:00 ALT 22 U/L (12-78) 04/01/20 02:00 Alkaline Phosphatase 107 U/L (45-117) 04/01/20 02:00 Troponin I < 0.02 ng/mL (0.0-0.045) 04/01/20 08:16 Lipase 99 U/L (73-393) 04/01/20 02:00 Home Medications: Zolpidem Tartrate [Ambien*] 10 mg PO BEDTIME 07/07/13 Aspirin Chewable [Aspirin Chewable*] 81 mg PO BEDTIME 04/30/17 Atorvastatin Calcium 40 mg PO BEDTIME 04/30/17 Hydrocodone Bit/Acetaminophen [Hydrocodon-Acetaminoph 7.5-325] 1 pill PO TID PRN 03/02/19 Lidocaine 4% Patch [Lidoderm 5% Patch*] 2 patch TOP BEDTIME PRN 03/02/19 Gabapentin [Neurontin*] 300 mg PO TID 11/09/19 Nitroglycerin [Nitrostat*] 0.4 mg SL UD PRN #30 tab 11/10/19 Alendronate Sodium 35 mg PO EVERY 7TH DAY 03/11/20 Ascorbic Acid [Vitamin C] 500 mg PO BEDTIME 03/11/20 Diclofenac Sodium 1 coreen TOP DAILY PRN 03/11/20 Multivit-Min/Iron/Folic Acid/K [Adults Multivitamin Tablet] 1 each PO BEDTIME 03/11/20 Pantoprazole [Protonix Tab*] 40 mg PO BIDAC 03/11/20 Sotalol HCl [Betapace*] 80 mg PO BID 03/11/20 Warfarin Sodium [Coumadin] 2 mg PO DAILY AT SUPPER 03/11/20 Cyclobenzaprine HCl [Flexeril] 5 mg PO Q8H #30 tablet 04/01/20 Methylprednisolone [Medrol dosepack] 4 mg PO DIRECTED #1 violetta 04/01/20 New Medications: Cyclobenzaprine HCl [Flexeril] 5 mg PO Q8H #30 tablet Methylprednisolone [Medrol dosepack] 4 mg PO DIRECTED #1 violetta Patient Discharge Instructions: OK TO DC IV AND DC HOME. FOLLOW-UP WITH PRIMARY CARE PROVIDER IN 1-2 WEEKS. FOLLOW-UP WITH CARDIOLOGY IN 1-2 WEEKS. RETURN TO THE ER IF symptoms worsen. CALL or TEXT DR. RAMIREZ AT [phone] IF ANY QUESTIONS REGARDING HOSPITAL STAY. PLEASE CALL THE FLOOR AT [phone] IF ANY MEDICATION OR NURSING QUESTIONS. Diet: AHA Activity: Fall precautions Followup: Saurabh Dobson MD [Primary Care Provider] - Time spent managing pt's care (in minutes): 25
--- NOTE | 2020-04-02 14:01 | EKG ---
Test Date: 2020-04-01 Test Time: 00:41:52 Hospitality Services Manager: RV MEASUREMENT RESULTS: Intervals: Rate: 68 AR: 202 QRSD: 98 QT: 498 QTc: 529 [place]: P: 90 AR: 202 QRS: 75 T: 71 INTERPRETIVE STATEMENTS: Normal sinus rhythm Prolonged QT Abnormal ECG Compared to ECG 03/12/2020 08:33:23 Prolonged QT interval now present Sinus bradycardia no longer present ST (T wave) deviation no longer present Electronically Signed On 04-02-20 13:58:44 RADIOGRAPHER CARDIAC CATHETERIZATION by Soren Carter
== END 2020-04-01 14:11 | disposition home or self-care (01) ==
LOC: ER 23:44 → ERHOLD 04-01 05:06
PROVIDERS: ADMIT Hospitalist; ATTEND Hospitalist
DX: R07.89 Other chest pain (principal); R06.02 Shortness of breath; R00.2 Palpitations; I48.91 Unspecified atrial fibrillation; I10 Essential (primary) hypertension; Z20.828 Contact with and (suspected) exposure to other viral communicable diseases; E78.5 Hyperlipidemia, unspecified; Z95.2 Presence of prosthetic heart valve; M54.9 Dorsalgia, unspecified; G89.29 Other chronic pain; F32.9 Major depressive disorder, single episode, unspecified; K21.9 Gastro-esophageal reflux disease without esophagitis; R94.31 Abnormal electrocardiogram [ECG] [EKG]
CPT/HCPCS: 93005 ×2; 85025; 80048; 36415; 83735; 85610 ×2; 80076; 84484 ×3; 83690; 83880; 71045; U0003; J2550; J2175 ×2; J2405; 96374; 96375; 99285; G0378

== ENCOUNTER 2020-04-27 10:53 | Observation (INO) | payer OTHER ==
--- OUTSIDE RECORDS SUMMARY | 2020-04-27 10:56 | XMS REPORT | Continuity of Care Document ---
:1955 Author Organization [facility] t Address [address] [place] [address] Care Team Providers Name Role Phone Farnaz, Mikaela Main Attending Clinician Unavailable Sy LOVELL Attending Clinician Problems This patient has no known problems. Allergies, Adverse Reactions, Alerts This patient has no known allergies or adverse reactions. Medications This patient has no known medications. Procedures This patient has no known procedures. Encounters Start End Encounter Admission Attending Care Care Encounter Source Date/Time Date/Time Type Type Clinicians Facility Department ID 2020-04-27 2020-04-27 Hand Cigar Maker Andre Osei [facility] [id number] 08:24:03 08:39:03 Visit Lab Main [place] [id number] [place] [id number] Lon[place] [id number] formerly [facility] 2020-04-20 2020-04-20 Refill Sy IAKALEIGH [id number] 00:00:00 00:00:00 Rogerzaheer Yehuda [id number] [place] [id number] [place] [id number] formerly [facility] 2020-03-29 2020-03-29 Office Sy IAKALEIGH [id number] 14:32:40 15:25:41 Visit [place] Blackman [id number] [place] [id number] [place] [id number] formerly [facility] 059 Building Results This patient has no known results.
--- OUTSIDE RECORDS SUMMARY | 2020-04-27 10:58 | XMS REPORT | Summary of Care ---
:1955 Author Organization [facility] Address [address] [place] [address] Care Team Providers Name Role Phone Nurse, Alex Unavailable Unavailable Ceasar Dobson Primary Care Provider Reason for Visit Reason Comments Refill Request Encounter Details Date Type Department Care Team Description 04/20/2020 Refill [facility] Cardiology- Catrina Dan MD Refill Request [place] [address] [facility] 146 [facility], [address] [place] [address] [place] [address] [phone] Allergies Active Allergy Reactions Severity Noted Date Comments Morphine Shortness of Breath High 04/29/2006 documented as of this encounter (statuses as of 04/21/2020) Medications Medication Sig Dispensed Refills Start Date [...] 2 mg Take 1 30 tablet 1 04/21/2020 Activ e tabletIndications: tablet by Atrial flutter, mouth every unspecified type evening. Take 3 mg on T & TH and 2 mg 5 day/week warfarin 2 mg Take 1 30 tablet 1 03/17/2020 Disco ntinued tabletIndications: tablet by 1 ( Reorder) Atrial flutter, mouth every unspecified type evening. Take 3 mg on T & TH and 2 mg 5 day/week documented as of this encounter (statuses as of 04/21/2020) Active Problems Problem Noted Date Mixed hyperlipidemia 12/02/2017 Essential hypertension 12/02/2017 Anticoagulated 12/02/2017 Coronary artery disease involving torres martinez coronary delgado ry of torres martinez heart 12/02/2017 without angina pectoris Coronary artery disease involving torres martinez heart without angina pectoris, 06/04/2017 unspecified vessel or lesion type Atrial flutter 07/16/2016 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] 02/10/2016 Chest pain with high risk for cardiac etiology 016 documented as of this encounter (statuses as of 04/21/2020) Social History Tobacco Use Types Packs/Day Years Used Date Never Smoker Smokeless Tobacco: Never Used Sex Assigned at Date Recorded Not on file COVID-19 Exposure Response Date Recorded In the last month, have you been in contact with No / Unsure 03/29/2020 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 documented as of this encounter Last Filed Vital Signs Not on filedocumented in this encounter Plan of Treatment Date Type Specialty Care Team Description 09/27/2020 Office Visit Cardiology [place] Dan M D [address] [place] [address] 15 Health Maintenance Due Date Last Done Comments [...] ID Effective Phone Address T e Group [facility] [id number] 2018-Prese Medic are Adv HEALTHCARE - HEALTHCARE DUAL nt H MO MANAGED COMPLETE O MEDICARE [place] [employer] [place] [id number] 2013-Prese Medicaid HEALTHCARE COMM PLUS nt PLAN - MANAGED MEDICAID documented as of this encounter
--- OUTSIDE RECORDS SUMMARY | 2020-04-27 10:58 | XMS REPORT | Summary of Care ---
:1955 Author Organization [facility] Address [address] [place] [address] Care Team Providers Name Role Phone Nurse, Anticoag Unavailable Unavailable Ceasar Dobson Primary Care Provider Reason for Visit Reason Comments LAB WORK Auth/Cert Status Reason Specialty Diagnoses / Procedures Referred By Ricci abreu Referred To Contact Phlebotomy Diagnoses I48.92 Adc Pob Lab Draw Procedures pt/ inr Professional Office Building [address] [place] [address] , [address] [place] [address] Phone: Fax: Encounter Details Date Type Department Care Team Description 04/27/2020 Tipple Boss Visit [facility] SyJamaica MD [address] [place] [address] [address] [place] [address] Atrial flutter, Professional Office Pob, Adc Lab Main unspecified type Building Phlebotomy Lab Professional Office Building [address] [place] [address] , [address] [place] [address] Allergies Active Allergy Reactions Severity Noted Date Comments Morphine Shortness of Breath High 04/29/2006 documented as of this encounter (statuses as of 04/27/2020) Medications Medication Sig Dispensed Refills Start Date [...] Take 1 tablet by 30 tablet 1 04/21/2020 Active tabletIndications: mouth every Atrial flutter, evening. 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 documented as of this encounter Last Filed Vital Signs Not on filedocumented in this encounter Nursing Notes Flavio Verduzco - 04/27/2020 8:30 AM CST Venipuncture collection performed by clean technique on the left anticubitus. Total of 1 attempts were made. Slight pressure and a bandage/dressing were applied to the site(s). The patient experienced no complications. The following specimens were processed according to instructions and sent to [facility] laboratories per lab order on today: LT BLUE 1 SST RED LAV PPT DK GREEN (LiHep) DK GREEN (SodH) KONG DK BLUE (K2) DK BLUE (S) ACD Blood Culture NIPT/NTD documented in this encounter Plan of Treatment Date Type Specialty Care Team Description 09/27/2020 Office Visit Cardiology [place] Dan M D [address] [place] [address] [phone] Name Type Priority Associated Diagnoses Date/Ti me PROTHROMBIN TIME / INR LAB Routine Atrial flutter, 8:31 AM PHARMACY TECHNICIAN PROGRAM DIRECTOR unspecified type Health Maintenance Due Date Last [...] Effective Phone Address T ype Group Dates [facility] [id number] 2018-Prese Medic are Adv HEALTHCARE - HEALTHCARE DUAL nt H MO MANAGED COMPLETE O MEDIC[place] [place] [id number] 2013-Prese Medicaid HEALTHCARE COMM PLUS nt PLAN - MANAGED MEDICAID documented as of this encounter
--- NOTE | 2020-04-27 11:42 | RAD REPORT ---
EXAM DESCRIPTION: RAD - Shoulder Right 2 View - 04/27/2020 11:26 am CLINICAL HISTORY: PAIN COMPARISON: No comparisons FINDINGS: The bones are mildly osteopenic. No acute fracture or dislocation.
[2020-04-27 11:48] LABS: Absolute Lymphocytes (CBC) 1.5 K/uL (0.7-4.9); Basophils % 0.3 % (0-1.3); Hematocrit 31.3 % (36.0-45.0); Lymphocytes % 29.3 % (15.3-44.8); MPV 8.8 fL (7.6-11.3); RBC Red Blood Cell Count 3.33 M/uL (3.86-4.86)
[2020-04-27] MEDS ORDERED: NA CHLORIDE 0.9% 500 ML ONE (11:56)
[2020-04-27] MEDS ORDERED: MEPERIDINE HCL 25 MG/ML SYR ONE ×2 (11:56→18:21)
--- NOTE | 2020-04-27 12:09 | RAD REPORT ---
EXAM DESCRIPTION: CTAbdomen Pelvis W Contrast - 04/27/2020 11:49 am CLINICAL HISTORY: Abdominal pain. HEMATURIA COMPARISON: Abdomen Pelvis W Contrast dated 03/07/2020; Abdomen Pelvis W Contrast dated 6; CT ABD PELVIS W CONTRAST dated 07/06/2013 TECHNIQUE: Biphasic CT imaging of the abdomen and pelvis was performed with 100 ml non-ionic IV cont rast. All CT scans are performed using dose optimization technique as appropriate and may include automated exposure control or mA/KV adjustment according to patient size. FINDINGS: The lung bases are clear.Small hiatal hernia is present. The liver, spleen, pancreas, adrenal glands and kidneys are within normal limits. Cholelithiasis. No bowel obstruction, free air, free fluid or abscess. Aortoiliac atherosclerosis. The appendix is no rmal. No evidence of significant lymphadenopathy. Advanced right hip osteoarthritis. IMPRESSION: Cholelithiasis. Advanced right hip osteoarthritis.
[2020-04-27 12:12] LABS: Protime INR 7.26
[2020-04-27] MEDS ORDERED: VITAMIN K (ADULT) 10 MG/ML ONE (13:00)
[2020-04-27 13:43] LABS: Urine Blood 3+ (NEG); Urine Glucose NEGATIVE (NEG); Urine Protein 2+ (NEG); Urine pH 7.5 (5.0-7.0)
--- NOTE | 2020-04-27 13:46 | ER ---
Nurse's Notes [facility] Name: Michelle Saavedra Age: 64 yrs Sex: Female : 1955 Arrival Date: 04/27/2020 Time: 10:54 Bed 19 Private MD: Saurabh Dobson E Diagnosis: Hematuria, unspecified;Supratherapuetic INR Presentation: 04/27 11:02 Chief complaint: Patient states: Bright red blood in urine since this morning, denies jl7 burning, denies pain with urination. Reports Right shoulder pain x 2 weeks. Coronavirus screen: Client denies travel out of the [place] in the last 14 days. At this time, the client does not indicate any symptoms associated with coronavirus-19. Ebola Screen: No symptoms or risks identified at this time. Initial Sepsis Screen: Does the patient meet any 2 criteria? No. Patient's initial sepsis screen is negative. Does the patient have a suspected source of infection? No. Patient's initial sepsis screen is negative. Risk Assessment: Do you want to hurt yourself or someone else? Patient reports no desire to harm self or others. Onset of symptoms was April 27, 2020. Care prior to arrival: None. 11:02 Method Of Arrival: Wheelchair jl7 11:02 Acuity: JAKUB 3 jl7 Triage Assessment: 11:05 General: Appears in no apparent distress. uncomfortable, Behavior is cooperative, jl7 anxious. Pain: Complains of pain in right shoulder Pain currently is 9 out of 10 on a pain scale. Historical: - Allergies: 11:05 Fentanyl; itching; jl7 11:05 Morphine; jl7 - Home Meds: 11:05 aspirin 81 mg Oral tab 1 tab once daily [Active]; atorvastatin 20 mg Oral tab 1 tab jl7 once daily [Active]; Coumadin 2.5 mg Oral tab 1 tab once daily [Active]; gabapentin Oral [Active]; Mary D 7.5-325 mg Oral tab 1 tab every 4 hours [Active]; sotalol 80 mg Oral tab 2 times per day [Active]; pantoprazole Oral [Active]; - PMHx: 11:05 Atrial Fib; Back pain; GERD; Hyperlipidemia; Hypertension; mechanical heart valve; jl7 - PSHx: 11:05 aortic valve surgery; jl7 - Immunization history:: Adult Immunizations unknown. - Social history:: Smoking status: Patient denies any tobacco usage or history of. Screenin:36 Abuse screen: Denies threats or abuse. Nutritional screening: No deficits noted. jd3 Tuberculosis screening: No symptoms or risk factors identified. Fall Risk Ambulatory Aid- None/Bed Rest/Nurse Assist (0 pts). Gait- Normal/Bed Rest/Wheelchair (0 pts) Mental Status- Oriented to own ability (0 pts). Total Fay Fall Scale indicates No Risk (0-24 pts). Assessment: 11:35 General: Appears in no apparent distress. uncomfortable, Behavior is calm, cooperative, jd3 appropriate for age. Pain: Complains of pain in right arm Quality of pain is described as aching. Neuro: Level of Consciousness is awake, alert, obeys commands, Oriented to person, place, time, situation. Cardiovascular: Denies chest pain, Capillary refill < 3 seconds Patient's skin is warm and dry. Respiratory: Airway is patent Respiratory effort is even, unlabored, Respiratory pattern is regular, symmetrical, Denies cough, shortness of breath. GI: No signs and/or symptoms were reported involving the gastrointestinal system. : Reports blood in urine. EENT: No signs and/or symptoms were reported regarding the EENT system. Derm: Skin is intact, Skin is dry, Skin is normal, Skin temperature is warm. Musculoskeletal: Circulation, motion, and sensation intact. Range of motion: intact in all extremities. 13:54 Reassessment: Patient appears in no apparent distress at this time. No changes from jd3 previously documented assessment. Patient and/or family updated on plan of care and expected duration. Pain level reassessed. Patient is alert, oriented x 3, equal unlabored respirations, skin warm/dry/pink. 15:03 Reassessment: Patient appears in no apparent distress at this time. Patient and/or jd3 family updated on plan of care and expected duration. Pain level reassessed. Patient is alert, oriented x 3, equal unlabored respirations, skin warm/dry/pink. 18:22 Reassessment: Patient appears in no apparent distress at this time. Patient and/or jd3 family updated on plan of care and expected duration. Pain level reassessed. Patient is alert, oriented x 3, equal unlabored respirations, skin warm/dry/pink. pt eating dinner. reporting pain, medicated per [facility] PRN order. charting continued in [facility]. 19:25 General: Appears in no apparent distress. comfortable, Behavior is calm, cooperative, rr5 appropriate for age, admitted with diagnosis of hematuria supratherapeutic INR, awaiting for bed assignment. Neuro: Level of Consciousness is awake, alert, obeys commands, Oriented to person, place, time, situation. Cardiovascular: Capillary refill < 3 seconds Patient's skin is warm and dry. Respiratory: Airway is patent Respiratory effort is even, unlabored, Respiratory pattern is regular, symmetrical. 20:30 Reassessment: Patient appears in no apparent distress at this time. Patient is alert, rr5 oriented x 3, equal unlabored respirations, skin warm/dry/pink. blanket given. 21:30 Reassessment: Patient appears in no apparent distress at this time. Patient is alert, rr5 oriented x 3, equal unlabored respirations, skin warm/dry/pink. resting eyes closed breathing spontaneously at room air. 22:29 Reassessment: Patient appears in no apparent distress at this time. Patient is alert, rr5 oriented x 3, equal unlabored respirations, skin warm/dry/pink. for transfer to room [facility]. 22:30 Reassessment: report given to landy FISHER. rr5 Vital Signs: 11:02 BP 176 / 72; Pulse 57; Resp 17; Temp 97.7; Pulse Ox 99% ; Weight 46.72 kg; Height 5 ft. jl7 3 in. (160.02 cm); Pain 9/10; 12:48 BP 205 / 66; Pulse 56; Resp 18; Temp 97.8(O); Pulse Ox 100% on R/A; mh5 12:54 BP 181 / 72; Pulse 55; Resp 17 S; Pulse Ox 100% on R/A; zb 13:54 BP 150 / 73; Pulse 52; Resp 17 S; Pulse Ox 100% on R/A; jd3 15:03 BP 179 / 68; Pulse 54; Resp 16 S; Pulse Ox 100% on R/A; jd3 16:07 BP 98 / 80; Pulse 53; Resp 17 S; Pulse Ox 100% on R/A; jd3 18:23 BP 145 / 95; Pulse 56; Resp 16 S; Pulse Ox 100% on R/A; jd3 19:30 BP 169 / 99; Pulse 65; Resp 18; Temp 98.2; Pulse Ox 99% ; rr5 20:30 BP 156 / 95; Pulse 57; Resp 17; Pulse Ox 100% ; rr5 21:30 BP 166 / 80; Pulse 60; Resp 17; Pulse Ox 98% ; rr5 22:27 BP 162 / 84; Pulse 61; Resp 20; Temp 97.8; Pulse Ox 100% ; rr5 11:02 Body Mass Index 18.25 (46.72 kg, 160.02 cm) jl7 ED Course: 10:54 Patient arrived in ED. ag5 10:54 Saurabh Dobson MD is Private Physician. ag5 11:03 Zahida Espinal FNP-C [facility]. kb 11:03 Ean Dumont MD is Attending Physician. kb 11:04 Triage completed. jl7 11:05 Arm band placed on right wrist. 7 11:16 You Vo, PHILLIP is Primary Nurse. jd3 11:27 Shoulder Right (2 View) XRAY In Process Unspecified. EDMS 11:36 Patient has correct armband on for positive identification. Bed in low position. Call jd3 light in reach. Side rails up X 1. Adult w/ patient. Pulse ox on. NIBP on. 11:45 Inserted saline lock: 20 gauge in left antecubital area, using aseptic technique. Blood jd3 collected. 11:49 CT Abd/Pelvis - IV Contrast Only In Process Unspecified. EDMS 12:50 Warm blanket given. 5 13:45 Cruz Sabillon MD is Hospitalizing Provider. kb 15:49 COVID-19 Sent. 5 17:59 CBC with Automated Diff Sent. 5 18:23 No provider procedures requiring assistance completed. Patient admitted, IV remains in jd3 place. Administered Medications: 11:38 Not Given (Patient Refused): Mary D 10 mg-325 mg 1 tabs PO once; RASS on ADMIN: Combtv4, kb Very Agttd3, Agttd2, Rstlss1, AlertClm0, Drwsy-1, Lt Sdtn-2, Mod Sdtn-3, Dp Sdtn-4, UnArsble-5 11:44 Drug: NS 0.9% 500 ml Route: IV; Rate: bolus; Site: left antecubital; jd3 12:40 Follow up: Response: No adverse reaction; IV Status: Completed infusion; IV Intake: jd3 500ml 11:45 Drug: Demerol 25 mg Route: IVP; Site: left antecubital; jd3 12:45 Follow up: Response: No adverse reaction; RASS: Alert and Calm (0) jd3 12:54 Drug: Vitamin K1 5 mg Route: IM; Site: left deltoid; zb 13:50 Follow up: Response: No adverse reaction jd3 Intake: 12:40 IV: 500ml; Total: 500ml. jd3 Outcome: 13:45 Decision to Hospitalize by Provider. kb 18:23 Admitted to ER Hold. [facility] jd3 18:23 Condition: stable 18:23 Instructed on the need for admit, Demonstrated understanding of instructions. 23:08 Patient left the ED. jacyb Signatures: Dispatcher [employer] EDZahida Madrid, HEMANT-C WOODWORKING MACHINE OPERATOR-eLonor Dong 5 Negro Roa RN RN [email or web address] You Vo RN RN jd3 Evin Chowdhury, PHILLIP RN rr5 Gina Machado [place], RN RN zb
--- NOTE | 2020-04-27 13:46 | EDPHYS ---
Physician Documentation [facility] Name: Michelle Saavedra Age: 64 yrs Sex: Female : 1955 Arrival Date: 04/27/2020 Time: 10:54 Bed 19 Private MD: Saurabh Dobson E ED Physician Ean Dumont HPI: 04/27 14:11 This 64 yrs old Female presents to ER via Wheelchair with complaints of kb Shoulder Pain, Blood In Urine. 14:11 The patient presents with urinary symptoms, hematuria. Onset: The symptoms/episode kb began/occurred this morning. Modifying factors: The symptoms are alleviated by nothing, the symptoms are aggravated by nothing. Associated signs and symptoms: Pertinent positives: hematuria, Pertinent negatives: dysuria, fever, urinary frequency. Severity of symptoms: At their worst the symptoms were moderate, in the emergency department the symptoms are unchanged. The patient has not experienced similar symptoms in the past. The patient has not recently seen a physician. Pt reports hematuria that started this morning. Went to PCP and was sent here due to gross blood in urine. Pt also reports right shoulder pain that started 2 weeks ago. States she had fallen a few days prior to the pain starting but doesn't think she injured it at that time. Historical: - Allergies: 11:05 Fentanyl; itching; jl7 11:05 Morphine; jl7 - Home Meds: 11:05 aspirin 81 mg Oral tab 1 tab once daily [Active]; atorvastatin 20 mg Oral tab 1 tab jl7 once daily [Active]; Coumadin 2.5 mg Oral tab 1 tab once daily [Active]; gabapentin Oral [Active]; Brady 7.5-325 mg Oral tab 1 tab every 4 hours [Active]; sotalol 80 mg Oral tab 2 times per day [Active]; pantoprazole Oral [Active]; - PMHx: 11:05 Atrial Fib; Back pain; GERD; Hyperlipidemia; Hypertension; mechanical heart valve; jl7 - PSHx: 11:05 aortic valve surgery; jl7 - Immunization history:: Adult Immunizations unknown. - Social history:: Smoking status: Patient denies any tobacco usage or history of. ROS: 13:50 Constitutional: Negative for fever, chills, and weight loss, Cardiovascular: Negative kb for chest pain, palpitations, and edema, Respiratory: Negative for shortness of breath, cough, wheezing, and pleuritic chest pain, Abdomen/GI: Negative for abdominal pain, nausea, vomiting, diarrhea, and constipation, MS/Extremity: Negative for injury and deformity, Skin: Negative for injury, rash, and discoloration, Neuro: Negative for headache, weakness, numbness, tingling, and seizure. 13:50 : Positive for hematuria. Exam: 13:50 Constitutional: This is a well developed, well nourished patient who is awake, alert, kb and in no acute distress. Head/Face: Normocephalic, atraumatic. Chest/axilla: Normal chest wall appearance and motion. Nontender with no deformity. No lesions are appreciated. Cardiovascular: Regular rate and rhythm with a normal S1 and S2. No gallops, murmurs, or rubs. Normal PMI, no JVD. No pulse deficits. Respiratory: Lungs have equal breath sounds bilaterally, clear to auscultation and percussion. No rales, rhonchi or wheezes noted. No increased work of breathing, no retractions or nasal flaring. Abdomen/GI: Soft, non-tender, with normal bowel sounds. No distension or tympany. No guarding or rebound. No evidence of tenderness throughout. Vital Signs: 11:02 BP 176 / 72; Pulse 57; Resp 17; Temp 97.7; Pulse Ox 99% ; Weight 46.72 kg; Height 5 ft. jl7 3 in. (160.02 cm); Pain 9/10; 12:48 BP 205 / 66; Pulse 56; Resp 18; Temp 97.8(O); Pulse Ox 100% on R/A; mh5 12:54 BP 181 / 72; Pulse 55; Resp 17 S; Pulse Ox 100% on R/A; zb 13:54 BP 150 / 73; Pulse 52; Resp 17 S; Pulse Ox 100% on R/A; jd3 15:03 BP 179 / 68; Pulse 54; Resp 16 S; Pulse Ox 100% on R/A; jd3 16:07 BP 98 / 80; Pulse 53; Resp 17 S; Pulse Ox 100% on R/A; jd3 18:23 BP 145 / 95; Pulse 56; Resp 16 S; Pulse Ox 100% on R/A; jd3 19:30 BP 169 / 99; Pulse 65; Resp 18; Temp 98.2; Pulse Ox 99% ; rr5 20:30 BP 156 / 95; Pulse 57; Resp 17; Pulse Ox 100% ; rr5 21:30 BP 166 / 80; Pulse 60; Resp 17; Pulse Ox 98% ; rr5 22:27 BP 162 / 84; Pulse 61; Resp 20; Temp 97.8; Pulse Ox 100% ; rr5 11:02 Body Mass Index 18.25 (46.72 kg, 160.02 cm) jl7 MDM: 11:08 Patient medically screened. kb 11:38 Data reviewed: vital signs, nurses notes. Data interpreted: Pulse oximetry: on room air kb is 99 %. Interpretation: normal. ED course: Pt reports she is having same pain as she normally does, sees pain management for chronic pain and takes norco. Pt requests pain medication for chronic pain at this time. Brady ordered. Pt requested a different provider because she wants demerol and "they always give it to me when I'm here." . 13:42 Counseling: I had a detailed discussion with the patient and/or guardian regarding: the kb historical points, exam findings, and any diagnostic results supporting the discharge/admit diagnosis, lab results, radiology results, the need for further work-up and treatment in the hospital. Physician consultation: Cruz Sabillon MD was contacted at 13:42, regarding admission, to the medical/surgical unit. patient's condition, and will see patient in ED, immediately. 04/27 11:12 Order name: CBC with Diff; Complete Time: 11:58 kb 04/27 11:12 Order name: Basic Metabolic Panel; Complete Time: 12:03 kb 04/27 11:12 Order name: Protime (+inr); Complete Time: 12:12 kb 04/27 11:12 Order name: Ptt, Activated; Complete Time: 12:12 kb 04/27 11:12 Order name: Urine Microscopic Only; Complete Time: 14:06 kb 04/27 12:27 Order name: CREATININE WHOLE BLOOD; Complete Time: 12:27 EDMS 04/27 12:54 Order name: Urine Dipstick--Ancillary (enter results); Complete Time: 13:46 bd 04/27 14:06 Order name: CBC with Automated Diff EDMS 04/27 14:06 Order name: CBC with Automated Diff EDMS 04/27 14:06 Order name: Comprehensive Metabolic Panel EDMS 04/27 14:06 Order name: Comprehensive Metabolic Panel EDMS 04/27 14:06 Order name: Protime (+INR) EDMS 04/27 14:06 Order name: Protime (+INR) EDMS 04/27 14:06 Order name: CBC with Automated Diff EDMS 04/27 11:07 Order name: Urine Dipstick-Ancillary (obtain specimen); Complete Time: 19:17 kb 04/27 11:07 Order name: Shoulder Right (2 View) XRAY; Complete Time: 11:43 kb 04/27 11:12 Order name: IV Start; Complete Time: 11:35 kb 04/27 11:12 Order name: CT Abd/Pelvis - IV Contrast Only; Complete Time: 12:11 kb 04/27 14:06 Order name: CONS Pharmacy Consult EDND 04/27 14:06 Order name: Regular EDMS 04/27 15:08 Order name: COVID-19 aa 04/27 15:49 Order name: Diet Regular; Complete Time: 15:50 [facility] 04/27 16:00 Order name: CORONAVIRUS EDND 04/27 16:47 Order name: SARS-COV-2 RT PCR; Complete Time: 16:58 EDMS Administered Medications: 11:38 Not Given (Patient Refused): Brady 10 mg-325 mg 1 tabs PO once; RASS on ADMIN: Combtv4, kb Very Agttd3, Agttd2, Rstlss1, AlertClm0, Drwsy-1, Lt Sdtn-2, Mod Sdtn-3, Dp Sdtn-4, UnArsble-5 11:44 Drug: NS 0.9% 500 ml Route: IV; Rate: bolus; Site: left antecubital; jd3 12:40 Follow up: Response: No adverse reaction; IV Status: Completed infusion; IV Intake: jd3 500ml 11:45 Drug: Demerol 25 mg Route: IVP; Site: left antecubital; jd3 12:45 Follow up: Response: No adverse reaction; RASS: Alert and Calm (0) jd3 12:54 Drug: Vitamin K1 5 mg Route: IM; Site: left deltoid; zb 13:50 Follow up: Response: No adverse reaction jd3 Disposition: 01/14 17:47 Co-signature as Attending Physician, Ean Dumont MD. rn Disposition: 04/27/20 13:45 Hospitalization ordered by Cruz Sabillon for Observation. Preliminary diagnosis are Hematuria, unspecified, Supratherapuetic INR. - Bed requested for Telemetry/MedSurg (observation). - Status is Observation. zb - Condition is Stable. - Problem is new. - Symptoms are unchanged. Signatures: Dispatcher [employer] EDMS Zahida Espinal, SCALP TREATMENT SPECIALIST-C SCALP TREATMENT SPECIALIST-Ckb Maite Sanchez, RN RN Ean Malcolm MD MD rn Leal, Jahala, RN RN jl7 You Vo, RN RN Jennifer Duvall, RN RN zb Corrections: (The following items were deleted from the chart) 04/27 22:04 13:45 Hospitalization Ordered by Cruz Sabillon MD for Observation. Preliminary dw diagnosis is Hematuria, unspecified; Supratherapuetic INR. Bed requested for Telemetry/MedSurg (observation). Status is Observation. Condition is Stable. Problem is new. Symptoms are unchanged. kb 23:08 22:04 04/27/2020 13:45 Hospitalization Ordered by Cruz Sabillon MD for Observation. zb Preliminary diagnosis is Hematuria, unspecified; Supratherapuetic INR. Bed requested for Telemetry/MedSurg (observation). Status is Observation. Condition is Stable. Problem is new. Symptoms are unchanged. dw
[2020-04-27 13:56] LABS: Urine Bacteria <20 /HPF (<20); Urine RBC TNTC /HPF (NONE SEEN)
[2020-04-27] MEDS ORDERED: ONDANSETRON 4 MG/2 ML VIAL IV PRN (14:03)
[2020-04-27] MEDS ORDERED: ACETAMINOPHEN 500 MG TAB PO PRN (14:03)
[2020-04-27] MEDS ORDERED: MORPHINE 2 MG/ML SYR IV PRN (14:03)
[2020-04-27] MEDS: MEPERIDINE HCL 25 MG/ML SYR IVP PRN ×2 (18:11→23:57)
[2020-04-27] MEDS: NA CHLORIDE 0.9% 1,000 ML IV SCH (18:11)
[2020-04-27] MEDS ORDERED: NA CHLORIDE 0.9% 1,000 ML ONE (18:21)
[2020-04-27 18:22] LABS: Absolute Lymphocytes (CBC) 1.7 K/uL (0.7-4.9); Basophils % 0.8 % (0-1.3); Hematocrit 31.8 % (36.0-45.0); Lymphocytes % 34.7 % (15.3-44.8); MPV 9.6 fL (7.6-11.3)
[2020-04-27 23:29] VITALS: BMI 17.6
[2020-04-28] MEDS: NA CHLORIDE 0.9% 1,000 ML IV SCH ×4 (04:20→20:39)
[2020-04-28 04:31] LABS: Absolute Lymphocytes (CBC) 1.3 K/uL (0.7-4.9); Hematocrit 31.8 % (36.0-45.0); Lymphocytes % 14.7 % (15.3-44.8); MPV 8.9 fL (7.6-11.3); Protime INR 3.41; RBC Red Blood Cell Count 3.36 M/uL (3.86-4.86)
[2020-04-28 04:54] LABS: Albumin 3.6 g/dL (3.4-5.0); Bilirubin Total 0.7 mg/dL (0.2-1.0); Potassium 3.8 mmol/L (3.5-5.1); Protein, Total 7.3 g/dL (6.4-8.2)
[2020-04-28] MEDS: MEPERIDINE HCL 25 MG/ML SYR IVP PRN ×2 (08:32→15:42)
--- NOTE | 2020-04-28 09:23 | P.HP ---
Certification for Inpatient Patient admitted to: Observation With expected LOS: <2 Midnights Patient will require the following post-hospital care: None Practitioner: I am a practitioner with admitting privileges, knowledge of patient current condition, hospital course, and medical plan of care. Services: Services provided to patient in accordance with Admission requirements found in Title 42 Section 412.3 of the Code of Federal Regulations Patient History Date of Service: 04/27/20 Reason for admission: Coagulopathy History of Present Illness: Patient is a 64-year-old female came to the hospital with coagulopathy. She also noticed hematuria. She came to the emergency room for further evaluation. In the ER she has had very little hematuria. She has been tested for elevated INR. Nurse practitioner gave vitamin K. INR will be rechecked in a.m.. No signs of active bleeding. Will monitor for observation. Anticipate discharge in the morning. Allergies morphine Allergy (Intermediate, Verified 04/27/20 23:29) panic ATTACK; shaking fentanyl Allergy (Verified 04/27/20 23:29) Itching Home Medications: Zolpidem Tartrate [Ambien*] 10 mg PO BEDTIME 07/07/13 Aspirin Chewable [Aspirin Chewable*] 81 mg PO BEDTIME 04/30/17 Atorvastatin Calcium 40 mg PO BEDTIME 04/30/17 Hydrocodone Bit/Acetaminophen [Hydrocodon-Acetaminoph 7.5-325] 7.5 mg PO TID PRN 03/02/19 Lidocaine 4% Patch [Lidoderm 5% Patch*] 2 patch TOP BEDTIME PRN 03/02/19 Gabapentin [Neurontin*] 300 mg PO TID 11/09/19 Alendronate Sodium 35 mg PO EVERY 7TH DAY 03/11/20 Ascorbic Acid [Vitamin C] 500 mg PO BEDTIME 03/11/20 Diclofenac Sodium 1 coreen TOP DAILY PRN 03/11/20 Multivit-Min/Iron/Folic Acid/K [Adults Multivitamin Tablet] 1 each PO BEDTIME 03/11/20 Pantoprazole [Protonix Tab*] 40 mg PO BIDAC 03/11/20 Sotalol HCl [Betapace*] 80 mg PO BID 03/11/20 Warfarin Sodium [Coumadin] 2 mg PO DAILY AT SUPPER 03/11/20 Cyclobenzaprine HCl [Flexeril] 5 mg PO Q8H #30 tablet 04/01/20 - Past Medical/Surgical History Has patient received pneumonia vaccine in the past: Yes Diabetic: No -: chronic back pain -: depression -: gallstones -: kidney infection -: GERD -: mechanical aorta -: palpitations -: Atrial fibrillation -: aortic valve replacement -: cardioversion -: tubal ligation - Family History Brother Medical History: Heart disease, Cancer Notes: heart attack Mother Medical History: Heart disease, Diabetes Notes: of heart attack Father Medical History: Heart disease Notes: of heart attack Sister Medical History: Heart disease, Diabetes, Cancer Notes: sisters x2 - DM. sister x1 - heart attack. sister- lung cancer - Social History Smoking Status: Never smoker Alcohol use: No CD- Drugs: No Caffeine use: Yes Place of Residence: Home Review of Systems 10-point ROS is otherwise unremarkable Physical Examination - Vital Signs Temperature: 97.6 F Blood Pressure: 143/69 Pulse: 63 Respirations: 16 Pulse Ox (%): 97 - Physical Exam General: Alert, In no apparent distress, Oriented x3 HEENT: Atraumatic, PERRLA, Mucous membr. moist/pink, EOMI, Sclerae nonicteric Neck: Supple, 2+ carotid pulse no bruit, No LAD, Without JVD or thyroid abnormality Respiratory: Diminished Cardiovascular: Regular rate/rhythm, Normal S1 S2, No murmurs Gastrointestinal: Normal bowel sounds, Soft and benign, Non-distended, No tenderness Musculoskeletal: No clubbing, No swelling, No tenderness Neurological: Normal gait, Normal speech, Normal strength at 5/5 x4 extr, Normal tone, Sensation intact, Cranial nerves 3-12 intact, Normal affect Lymphatics: No axilla or inguinal lymphadenopathy - Studies Laboratory Data (last 24 hrs) 04/27/20 11:30: PT 82.4 H, INR 7.26 H*, APTT 62.3 H 04/27/20 11:30: Sodium 140, Potassium 4.0, BUN 12, Creatinine 0.88, Glucose 79 04/27/20 11:30: WBC 5.0, Hgb 10.1 L, Hct 31.3 L, Plt Count 241 Assessment & Plan - Problems (Diagnosis) (1) Chronic atrial fibrillation Current Visit: No Status: Acute (2) Hypercoagulable state Current Visit: No Status: Acute (3) H/O aortic valve repair Current Visit: No Status: Chronic (4) Elevated INR (international normalized ratio) due to prior anticoagulant medication ingestion Current Visit: Yes Status: Acute - Plan Plan: 1. Monitor H&H 2. Check INR 3. Resume anti coagulation at a lower dose 4. Mid Level Business Analyst patient regarding monitor INR level at home 5. GI and DVT prophylaxis Discharge Plan: Home Plan to discharge in: 24 Hours - Advance Directives Does patient have a Living Will: No Does patient have a Durable POA for Healthcare: No - Code Status/Comfort Care Code Status Assessed: Yes Code Status: Full Code Critical Care: No Time Spent Managing PTS Care (In Minutes): 35
[2020-04-28] MEDS ORDERED: INFLUENZA VACCINE (for 3y+) 0.5 ML DOSE IMVAC ONE (11:00)
[2020-04-28] MEDS ORDERED: Lidocaine 4% Patch TOP PRN (14:23)
[2020-04-28] MEDS ORDERED: HYDROCODONE/APAP 7.5/325 MG TAB PO PRN (14:23)
[2020-04-28] MEDS ORDERED: HOME MED 1 EA UNK (Cyclobenzaprine Hcl [Flexeril] 5 MG Tablet) PO SCH (14:30)
[2020-04-28] MEDS: PANTOPRAZOLE 40MG TABLET PO SCH (15:42)
[2020-04-28] MEDS: CYCLOBENZAPRINE 10 MG TAB PO SCH (16:24)
[2020-04-28] MEDS: SOTALOL HCL 80 MG TAB PO SCH ×2 (17:34→20:40)
[2020-04-28] MEDS: GABAPENTIN 300 MG CAP PO SCH (20:39)
[2020-04-28] MEDS ORDERED: ZOLPIDEM TARTRATE 10 MG TABLET PO SCH (21:00)
[2020-04-28] MEDS ORDERED: [UNRECOGNIZED DRUG - OTHER] PO SCH (21:00)
[2020-04-28] MEDS ORDERED: ATORVASTATIN 40 MG TAB PO SCH (21:00)
[2020-04-28] MEDS ORDERED: ASCORBIC ACID 250 MG PO SCH (21:00)
[2020-04-29] MEDS: CYCLOBENZAPRINE 10 MG TAB PO SCH ×3 (01:00→09:46)
[2020-04-29 06:06] LABS: Absolute Lymphocytes (CBC) 1.2 K/uL (0.7-4.9); Lymphocytes % 20.4 % (15.3-44.8); RBC Red Blood Cell Count 3.11 M/uL (3.86-4.86)
[2020-04-29 06:39] LABS: Protime INR 1.36
[2020-04-29] MEDS: NA CHLORIDE 0.9% 1,000 ML IV SCH (07:00)
[2020-04-29] MEDS: SOTALOL HCL 80 MG TAB PO SCH (09:47)
[2020-04-29] MEDS: GABAPENTIN 300 MG CAP PO SCH (09:47)
[2020-04-29] MEDS: PANTOPRAZOLE 40MG TABLET PO SCH (09:47)
[2020-04-29 12:00] VITALS: BP 126/54; TEMP 97.4
[2020-04-29 12:09] VITALS: O2SAT 99
[2020-04-29] MEDS ORDERED: WARFARIN SODIUM 2 MG TAB PO SCH (17:00)
--- NOTE | 2020-05-04 04:29 | P.PN ---
Subjective Date of Service: 04/28/20 Subjective: Improving (Patient denies any complaints.) Review of Systems 10-point ROS is otherwise unremarkable Physical Examination - Vital Signs Temperature: 97.4 F Blood Pressure: 126/54 Pulse: 61 Respirations: 18 Pulse Ox (%): 99 - Physical Exam General: Alert, In no apparent distress, Oriented x3 HEENT: Atraumatic, PERRLA, EOMI Neck: Supple, JVD not distended Respiratory: Clear to auscultation bilaterally, Normal air movement Cardiovascular: Regular rate/rhythm, Normal S1 S2 Gastrointestinal: Normal bowel sounds, No tenderness Musculoskeletal: No tenderness Integumentary: No rashes Neurological: Normal speech, Normal tone, Normal affect Lymphatics: No axilla or inguinal lymphadenopathy - Studies Medications List Reviewed: Yes Assessment & Plan - Problems (Diagnosis) (1) Chronic atrial fibrillation Status: Acute (2) Hypercoagulable state Status: Acute (3) H/O aortic valve repair Status: Chronic (4) Elevated INR (international normalized ratio) due to prior anticoagulant medication ingestion Status: Acute - Plan Plan: Continue with plan of care as mentioned below. Patient continues to improve 1. Monitor H&H 2. Check INR 3. Resume anti coagulation at a lower dose 4. 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 GI and DVT prophylaxis Discharge Plan: Home Plan to discharge in: Greater than 2 days - Advance Directives Does patient have a Living Will: No Does patient have a Durable POA for Healthcare: No - Code Status/Comfort Care Code Status: Full Code Critical Care: No Time Spent Managing PTS Care (In Minutes): 35
--- NOTE | 2020-05-04 04:30 | P.DS ---
Discharge Date: 04/29/20 Disposition: ROUTINE DISCHARGE Discharge Condition: GOOD Reason for Admission: Coagulopathy - Problems (1) Chronic atrial fibrillation Status: Acute (2) Hypercoagulable state Status: Acute (3) H/O aortic valve repair Status: Chronic (4) Elevated INR (international normalized ratio) due to prior anticoagulant medication ingestion Status: Acute Brief History of Present Illness: Patient is a 64-year-old female came to the hospital with coagulopathy. She also noticed hematuria. She came to the emergency room for further evaluation. In the ER she has had very little hematuria. She has been tested for elevated INR. Nurse practitioner gave vitamin K. INR will be rechecked in a.m.. No signs of active bleeding. Will monitor for observation. Anticipate discharge in the morning. Hospital Course: Patient is doing well. Patient is stable for discharge and outpatient followup with neurology. Continue outpatient follow up with a urologist as well. Vital Signs/Physical Exam: Temp Pulse Resp BP Pulse Ox 97.4 F 61 18 126/54 L 99 05/04/20 04:28 05/04/20 04:28 05/04/20 04:28 05/04/20 04:28 05/04/20 04:28 General: Alert, In no apparent distress, Oriented x3 Laboratory Data at Discharge: WBC 5.8 K/uL (4.3-10.9) D 04/29/20 05:37 Hgb 9.5 g/dL (12.0-15.0) L 04/29/20 05:37 Hct 29.0 % (36.0-45.0) L 04/29/20 05:37 Plt Count 193 K/uL (152-406) 04/29/20 05:37 PT 16.0 SECONDS (9.5-12.5) H 04/29/20 05:37 INR 1.36 04/29/20 05:37 APTT 62.3 SECONDS (24.3-36.9) H 04/27/20 11:30 Sodium 142 mmol/L (136-145) 04/28/20 04:08 Potassium 3.8 mmol/L (3.5-5.1) 04/28/20 04:08 BUN 11 mg/dL (7-18) 04/28/20 04:08 Creatinine 0.74 mg/dL (0.55-1.3) 04/28/20 04:08 Glucose 91 mg/dL (74-106) 04/28/20 04:08 Total Bilirubin 0.7 mg/dL (0.2-1.0) 04/28/20 04:08 AST 25 U/L (15-37) 04/28/20 04:08 ALT 18 U/L (12-78) 04/28/20 04:08 Alkaline Phosphatase 106 U/L (45-117) 04/28/20 04:08 Home Medications: Zolpidem Tartrate [Ambien*] 10 mg PO BEDTIME 07/07/13 Atorvastatin Calcium 40 mg PO BEDTIME 04/30/17 Hydrocodone Bit/Acetaminophen [Hydrocodon-Acetaminoph 7.5-325] 7.5 mg PO TID PRN 03/02/19 Lidocaine 4% Patch [Lidoderm 5% Patch*] 2 patch TOP BEDTIME PRN 03/02/19 Gabapentin [Neurontin*] 300 mg PO TID 11/09/19 Alendronate Sodium 35 mg PO EVERY 7TH DAY 03/11/20 Ascorbic Acid [Vitamin C] 500 mg PO BEDTIME 03/11/20 Diclofenac Sodium 1 coreen TOP DAILY PRN 03/11/20 Multivit-Min/Iron/Folic Acid/K [Adults Multivitamin Tablet] 1 each PO BEDTIME 03/11/20 Pantoprazole [Protonix Tab*] 40 mg PO BIDAC 03/11/20 Sotalol HCl [Betapace*] 80 mg PO BID 03/11/20 Cyclobenzaprine HCl [Flexeril] 5 mg PO Q8H #30 tablet 04/01/20 Warfarin Sodium [Coumadin*] 1 mg PO DAILY 5 PM #45 tab 04/29/20 New Medications: Warfarin Sodium [Coumadin*] 1 mg PO DAILY 5 PM #45 tab Patient Discharge Instructions: OK TO DC IV AND DC HOME. FOLLOW-UP WITH PRIMARY CARE PROVIDER IN 1-2 WEEKS. FOLLOW-UP WITH CARDIOLOGY IN 1-2 WEEKS. Please have patient check INR Saturday and . Patient needs to follow-up with Urology in 1-2 weeks; please give patient our local urology's number. RETURN TO THE ER IF symptoms worsen. CALL or TEXT DR. RAMIREZ AT [phone] IF ANY QUESTIONS REGARDING HOSPITAL STAY. PLEASE CALL THE FLOOR AT [phone] IF ANY MEDICATION OR NURSING QUESTIONS. Diet: AHA Activity: Fall precautions Followup: Saurabh Dobson MD [Primary Care Provider] - Jeff De Jesus [COURTESY - CAN ADMIT] - Time spent managing pt's care (in minutes): 35
[2020-05-05] MEDS ORDERED: Alendronate Sodium [Alendronate Sodium] 35 MG Tablet PO SCH (09:00)
== END 2020-04-29 12:35 | disposition home or self-care (01) ==
LOC: ER 10:53 → ERHOLD 14:03 → 2ND 22:25
PROVIDERS: ADMIT Hospitalist; ATTEND Hospitalist
DX: R79.1 Abnormal coagulation profile (principal); R31.9 Hematuria, unspecified; T45.515A Adverse effect of anticoagulants, initial encounter; I48.20 Chronic atrial fibrillation, unspecified; Z20.822 Contact with and (suspected) exposure to COVID-19; Z95.2 Presence of prosthetic heart valve; M54.9 Dorsalgia, unspecified; G89.29 Other chronic pain; F32.9 Major depressive disorder, single episode, unspecified; K21.9 Gastro-esophageal reflux disease without esophagitis; M25.511 Pain in right shoulder; R10.9 Unspecified abdominal pain; M16.11 Unilateral primary osteoarthritis, right hip; K80.20 Calculus of gallbladder without cholecystitis without obstruction
CPT/HCPCS: 96361; 85025 ×4; 80048; 36415 ×2; 85610 ×3; 82565; 85730; 80053; 74177; 73030; 96372; 96374; 99285; U0003; Q9967; J3430; J2175 ×5; J7040; J7030 ×3; 81003; 81015

== ENCOUNTER 2020-08-10 22:12 | Emergency (ER) | payer OTHER ==
--- OUTSIDE RECORDS SUMMARY | 2020-08-10 22:15 | XMS REPORT | Continuity of Care Document ---
:1955 Author Organization [facility] t Address [address] [place] [address] Care Team Providers Name Role Phone Pob, Lab Main Attending Clinician Unavailable Doctor Unassigned, Name Attending Clinician Unavailable Sy LOVELL Attending Clinician Problems This patient has no known problems. Allergies, Adverse Reactions, Alerts This patient has no known allergies or adverse reactions. Medications This patient has no known medications. Procedures This patient has no known procedures. Encounters Start End Encounter Admission Attending Care Care Encounter Source Date/Time Date/Time Type Type Clinicians Facility Department ID 2020-08-08 2020-08-08 Bridge Contractor Andre Osei IDKALEIGH [id number] 11:14:44 11:29:44 Visit Lab Main Yehuda [id number] [facility] [id number] Profess [phone] [address] 2020-08-08 2020-08-08 Orders Doctor JOHANN [id number] 00:00:00 00:00:00 Only UnassignedMIKE [id number] [place] [facility] [id number] 009 2020-08-08 2020-08-08 Telephone Sy IDKALEIGH [id number] 00:00:00 00:00:00 Qiangjun Brainard [id number] [facility] [id number] Professio [phone] [address] 2020-07-25 2020-07-25 Telephone [facility], [facility] [id number] 00:00:00 00:00:00 [place] Brainard [id number] [facility] [id number] Professio [phone] [address] 2020-07-20 2020-07-20 Bridge Contractor Farnaz, [facility] [id number] 10:37:03 10:52:03 Visit Lab Main Brainard [id number] [facility] [id number] Professio [phone] [address] 2020-07-20 2020-07-20 Orders Doctor JOHANN [id number] 00:00:00 00:00:00 Only Unassigned, MIKE [id number] [place] [facility] [phone] [facility] 2020-07-20 2020-07-20 Telephone [facility] [id number] 00:00:00 00:00:00 [place] [id number] [facility] [id number] Professio [phone] [address] 2020-07-13 2020-07-13 Bridge Contractor Farnaz, [facility] [id number] 09:23:20 09:38:20 Visit Lab Main [place] [id number] [facility] [id number] Professio [phone] [address] 2020-07-13 2020-07-13 Telephone [facility] [id number] 00:00:00 00:00:00 [place] [id number] [facility] [id number] Professio [phone] [address] 2020-06-19 2020-06-19 Telephone [facility] [id number] 00:00:00 00:00:00 [place] [id number] [facility] [id number] Professio [phone] [address] 2020-06-17 2020-06-17 Bridge Contractor Farnaz, [facility] [id number] 09:22:55 09:37:55 Visit Lab Main [place] [id number] [facility] [id number] Professio [phone] [address] 2020-06-08 2020-06-08 Telephone [facility] [id number] 00:00:00 00:00:00 [place] [id number] [facility] [id number] Professio [phone] [address] 2020-06-07 2020-06-07 Bridge Contractor Farnaz, [facility] [id number] 08:57:47 09:12:47 Visit Lab Main [place] [id number] [facility] [id number] Professio [phone] [address] 2020-05-16 2020-05-16 Bridge Contractor Farnaz, [facility] [id number] 11:09:17 11:24:17 Visit Lab Main [place] [id number] [facility] [id number] Professio [phone] [address] 2020-05-16 2020-05-16 Orders Doctor JOHANN [id number] 00:00:00 00:00:00 Only Unassigned, MIKE 350.1.13.10 [place] [facility] [phone] [facility] 2020-05-16 2020-05-16 Telephone [facility] [id number] 00:00:00 00:00:00 Catrinamerzaheer [place] [id number] [facility] [id number] Professio [phone] [address] 2020-05-11 2020-05-11 Bridge Contractor Farnaz, [facility] [place] [id number] 09:25:07 09:40:07 Visit Lab Main [place] [id number] [facility] [id number] Professio [phone] [address] 2020-05-11 2020-05-11 Telephone [facility], [facility] [id number] 00:00:00 00:00:00 [place] [id number] [facility] [id number] Professio [phone] [address] 2020-05-11 2020-05-11 Telephone [facility], [facility] [id number] 00:00:00 00:00:00 [place] [id number] [facility] [id number] Professio [phone] [address] 2020-05-04 2020-05-04 Telephone [facility], [facility] [id number] 00:00:00 00:00:00 [place] [id number] [facility] [id number] Professio [phone] [address] 2020-05-03 2020-05-03 Bridge Contractor Farnaz, [facility] [place] [id number] 10:05:00 10:20:00 Visit Lab Main [place] 350.1.13.10 [facility] [id number] Professio [phone] [address] 2020-05-03 2020-05-03 Orders Doctor JOHANN [id number] 00:00:00 00:00:00 Only Unassigned, MIKE 350.1.13.10 [place] [facility] 4.2.7.2.686 [id number] [id number] 2020-04-27 2020-04-27 Bridge Contractor Farnaz, [facility] [place] [id number] 08:24:03 08:39:03 Visit Lab Main [place] [id number] [facility] [id number] Professio [phone] nal [address] [facility] 2020-04-27 2020-04-27 Telephone [facility] [id number] 00:00:00 00:00:00 [place] Blackman 350.1.13.10 [facility] [id number] Professio [phone] [facility] 059 [facility] 2020-04-20 2020-04-20 Refill [facility] [id number] 00:00:00 00:00:00 [place] Blackman 350.1.13.10 [facility] [id number] Professio [phone] [facility] 059 [facility] 2020-03-29 2020-03-29 Office [facility] [id number] 14:32:40 15:25:41 Visit [place] Blackman [id number] [facility] [id number] Professio [phone] [address] Results This patient has no known results.
[2020-08-11 00:01] LABS: Urine Blood Negative (Negative); Urine Glucose Negative (Negative); Urine Protein Trace (Negative); Urine pH 8.5 (5.0-7.0)
[2020-08-11 00:18] LABS: Absolute Lymphocytes (CBC) 1.1 K/uL (0.7-4.9); Basophils % 0.9 % (0-1.3); Hematocrit 28.3 % (36.0-45.0); Lymphocytes % 10.4 % (15.3-44.8); MPV 9.6 fL (7.6-11.3); RBC Red Blood Cell Count 2.89 M/uL (3.86-4.86)
[2020-08-11 00:19] LABS: Protime INR 2.69
[2020-08-11 00:32] LABS: ALT/SGPT 21 U/L (12-78); AST/SGOT 18 U/L (15-37); Albumin 2.9 g/dL (3.4-5.0); Alkaline Phosphatase 92 U/L (45-117); BUN Blood Urea Nitrogen 11 mg/dL (7-18); Bicarbonate 31 mmol/L (21-32); Bilirubin Direct 0.1 mg/dL (0-0.2); Bilirubin Total 0.3 mg/dL (0.2-1.0); Glucose Level 110 mg/dL (74-106); Lipase 81 U/L (73-393); Magnesium 1.8 mg/dL (1.8-2.4); NT PRO-BNP 1321 pg/mL (<125); Potassium 3.7 mmol/L (3.5-5.1); Protein, Total 6.1 g/dL (6.4-8.2); Sodium Level 143 mmol/L (136-145); Troponin (Emerg Dept Use Only) < 0.02 ng/mL (0.0-0.045)
[2020-08-11] MEDS ORDERED: MEPERIDINE HCL 25 MG/ML SYR ONE (00:45)
--- NOTE | 2020-08-11 01:05 | ER ---
Nurse's Notes [facility] Name: Michelle Saavedra Age: 65 yrs Sex: Female : 1955 Arrival Date: 08/10/2020 Time: 22:15 Bed 16 Private MD: Diagnosis: Generalized abdominal pain;Chest pain, unspecified;Adverse effect of other systemic antibiotics Presentation: 08/10 22:25 Chief complaint: Patient states: around 1800 tonight she started having chest and bb abdominal pain denies vomiting or diarrhea, the chest pain does not radiate. Coronavirus screen: At this time, the client does not indicate any symptoms associated with coronavirus-19. Ebola Screen: No symptoms or risks identified at this time. Initial Sepsis Screen: Does the patient meet any 2 criteria? No. Patient's initial sepsis screen is negative. Does the patient have a suspected source of infection? No. Patient's initial sepsis screen is negative. Risk Assessment: Do you want to hurt yourself or someone else? Patient reports no desire to harm self or others. Onset of symptoms was August 10, 2020. 22:25 Method Of Arrival: Ambulatory bb 22:25 Acuity: JAKUB 3 bb 22:28 Note pt now states she just started levofloxacin and has taken it once a day for 2 days bb and she thinks that may be making her feel sick. Historical: - Allergies: 22:28 Fentanyl; itching; bb 22:28 Morphine; bb - Home Meds: 22:28 aspirin 81 mg Oral tab 1 tab once daily [Active]; atorvastatin 20 mg Oral tab 1 tab bb once daily [Active]; Coumadin 2.5 mg Oral tab 1 tab once daily [Active]; gabapentin Oral [Active]; [place] 7.5-325 mg Oral tab 1 tab every 4 hours [Active]; pantoprazole Oral [Active]; sotalol 80 mg Oral tab 2 times per day [Active]; - PMHx: 22:28 Atrial Fib; Back pain; GERD; Hyperlipidemia; Hypertension; mechanical heart valve; bb - PSHx: 22:28 mechanical heart valve; bb - Immunization history:: Adult Immunizations up to date. - Social history:: Smoking status: Patient denies any tobacco usage or history of. Screenin:46 Abuse screen: Denies threats or abuse. Denies injuries from another. Nutritional jm8 screening: No deficits noted. Tuberculosis screening: No symptoms or risk factors identified. Fall Risk None identified. Assessment: 22:47 General: Appears in no apparent distress. uncomfortable, Behavior is calm, cooperative, jm8 appropriate for age. Pain: Complains of pain in chest and abdomen Pain currently is 9.5 out of 10 on a pain scale. Pain began 10 hours ago Aggravated by taking a new antibiotic. Neuro: No deficits noted. Level of Consciousness is awake, alert, obeys commands, Oriented to person, place, time. Cardiovascular: Reports chest pain, Chest pain is described as Pain is 9.5 out of 10 on a pain scale. quality is is located in epigastric area. 22:49 Respiratory: No deficits noted. GI: No deficits noted. Bowel sounds present X 4 quads. jm8 Abd is soft and non tender Abdomen is tender to palpation X 4 quads. GI: Reports lower abdominal pain, upper abdominal pain, nausea. 22:50 : No deficits noted. EENT: No deficits noted. Derm: No deficits noted. jm8 Musculoskeletal: No deficits noted. Vital Signs: 22:25 BP 114 / 62; Pulse 64; Resp 16 S; Temp 98.6(O); Pulse Ox 100% on R/A; Weight 46.27 kg bb (R); Height 5 ft. 3 in. (160.02 cm) (R); Pain 9/10; 08/11 00:53 BP 123 / 43; Pulse 55; Resp 16; Pulse Ox 100% on R/A; 8 01:46 BP 109 / 52; Pulse 58; Resp 16; Pulse Ox 99% on R/A; [facility] 08/10 22:25 Body Mass Index 18.07 (46.27 kg, 160.02 cm) ED Course: 08/10 22:15 Patient arrived in ED. cf2 22:26 Triage completed. 22:28 Arm band placed on Patient placed in an exam room, on a stretcher, on pulse oximetry. bb 22:50 Patient has correct armband on for positive identification. Bed in low position. Call [facility] light in reach. Side rails up X 1. 23:32 Armaan Degroot PA is PHCP. [facility] 23:32 David Merida MD is Attending Physician. [facility] 23:50 XRAY Chest (1 view) Sent. jm8 23:54 XRAY Chest (1 view) In Process Unspecified. EDMS 08/11 00:00 Inserted saline lock: 20 gauge in left antecubital area, using aseptic technique. jm8 01:45 IV discontinued, intact, bleeding controlled, No redness/swelling at site. jm8 01:46 Urine Dipstick-Ancillary Sent. jm8 Administered Medications: 00:27 Drug: Demerol (meperidine) 25 mg Route: IVP; Site: left antecubital; jm8 01:46 Follow up: Response: No adverse reaction; Pain is decreased jm8 Outcome: 01:05 Discharge ordered by . damaso 01:47 Patient left the ED. jm8 Signatures: Dispatcher [employer] EDRadha Mclaughlin RN RN bb Armaan Degroot PA PA jr8 Nanette Glaser cf2 Torres Pascual RN RN jm8 Corrections: (The following items were deleted from the chart) 08/10 22:49 22:47 Cardiovascular: Reports chest pain, Chest pain is described as Pain is 9.5 out of jm8 10 on a pain scale. quality is is located in epigastric area jm8
--- NOTE | 2020-08-11 01:05 | EDPHYS ---
Physician Documentation [facility] Name: Michelle Saavedra Age: 65 yrs Sex: Female : 1955 Arrival Date: 08/10/2020 Time: 22:15 Bed 16 Private MD: ED Physician David Merida HPI: 08/11 00:26 This 65 yrs old Female presents to ER via Ambulatory with complaints of jr8 Abdominal Pain, Chest Pain. 00:26 Patient presented to ED with complaints of chest pain and abdominal pain. Stated that jr8 she has had this in the past several times without any diagnosis. Started with same symptoms tonight . Severity of symptoms: At their worst the symptoms were moderate in the emergency department the symptoms are unchanged. The patient has experienced similar episodes in the past, several times. The patient has not recently seen a physician. Historical: - Allergies: 08/10 22:28 Fentanyl; itching; bb 22:28 Morphine; bb - Home Meds: 22:28 aspirin 81 mg Oral tab 1 tab once daily [Active]; atorvastatin 20 mg Oral tab 1 tab bb once daily [Active]; Coumadin 2.5 mg Oral tab 1 tab once daily [Active]; gabapentin Oral [Active]; [place] 7.5-325 mg Oral tab 1 tab every 4 hours [Active]; pantoprazole Oral [Active]; sotalol 80 mg Oral tab 2 times per day [Active]; - PMHx: 22:28 Atrial Fib; Back pain; GERD; Hyperlipidemia; Hypertension; mechanical heart valve; bb - PSHx: 22:28 mechanical heart valve; bb - Immunization history:: Adult Immunizations up to date. - Social history:: Smoking status: Patient denies any tobacco usage or history of. ROS: 08/11 00:26 Eyes: Negative for injury, pain, redness, and discharge, ENT: Negative for injury, jr8 pain, and discharge, Neck: Negative for injury, pain, and swelling, Respiratory: Negative for shortness of breath, cough, wheezing, and pleuritic chest pain, Back: Negative for injury and pain, MS/Extremity: Negative for injury and deformity, Skin: Negative for injury, rash, and discoloration, Neuro: Negative for headache, weakness, numbness, tingling, and seizure. Cardiovascular: Positive for chest pain, Negative for edema, orthopnea, palpitations, paroxysmal nocturnal dyspnea. Abdomen/GI: Positive for abdominal pain, Negative for nausea, vomiting, and diarrhea, abdominal distension, hematemesis, black/tarry stool, rectal pain, rectal bleeding, bowel incontinence, flatulence. Exam: 00:26 Eyes: Pupils equal round and reactive to light, extra-ocular motions intact. Lids and jr8 lashes normal. Conjunctiva and sclera are non-icteric and not injected. Cornea within normal limits. Periorbital areas with no swelling, redness, or edema. ENT: Nares patent. No nasal discharge, no septal abnormalities noted. Tympanic membranes are normal and external auditory canals are clear. Oropharynx with no redness, swelling, or masses, exudates, or evidence of obstruction, uvula midline. Mucous membranes moist. Neck: Trachea midline, no thyromegaly or masses palpated, and no cervical lymphadenopathy. Supple, full range of motion without nuchal rigidity, or vertebral point tenderness. No Meningismus. Respiratory: Lungs have equal breath sounds bilaterally, clear to auscultation and percussion. No rales, rhonchi or wheezes noted. No increased work of breathing, no retractions or nasal flaring. Back: No spinal tenderness. No costovertebral tenderness. Full range of motion. Skin: Warm, dry with normal turgor. Normal color with no rashes, no lesions, and no evidence of cellulitis. MS/ Extremity: Pulses equal, no cyanosis. Neurovascular intact. Full, normal range of motion. Neuro: Awake and alert, GCS 15, oriented to person, place, time, and situation. Cranial nerves II-XII grossly intact. Motor strength 5/5 in all extremities. Sensory grossly intact. Cerebellar exam normal. Normal gait. 00:26 Cardiovascular: Rate: normal, Rhythm: irregular, Pulses: Pulses are 2+ in right radial artery and left radial artery. Heart sounds: murmur, systolic, grade 4 over 6, heard in the aortic area, Edema: is not appreciated, JVD: is not appreciated. Vital Signs: 08/10 22:25 BP 114 / 62; Pulse 64; Resp 16 S; Temp 98.6(O); Pulse Ox 100% on R/A; Weight 46.27 kg bb (R); Height 5 ft. 3 in. (160.02 cm) (R); Pain 9/10; 08/11 00:53 BP 123 / 43; Pulse 55; Resp 16; Pulse Ox 100% on R/A; 8 01:46 BP 109 / 52; Pulse 58; Resp 16; Pulse Ox 99% on R/A; 8 08/10 22:25 Body Mass Index 18.07 (46.27 kg, 160.02 cm) bb MDM: 08/10 23:35 Patient medically screened. [facility] 08/11 01:02 Data reviewed: vital signs, nurses notes, lab test result(s), EKG, radiologic studies, [facility] plain films. Data interpreted: Pulse oximetry: on room air is 100 %. Interpretation: normal. Counseling: I had a detailed discussion with the patient and/or guardian regarding: the historical points, exam findings, and any diagnostic results supporting the discharge/admit diagnosis, lab results, radiology results, the need for outpatient follow up, a family practitioner, to return to the emergency department if symptoms worsen or persist or if there are any questions or concerns that arise at home. ED course: Patient hemodynamically stable. Feeling better. No acute findings on labs, ecg, or CXR. After discussing this with patient, she did say she is on Abx for UTI and wonders if that was the problem. Neglected to discuss this with me earlier. Explained to her that Levaquin can cause GI upset. Will switch her to Macrobid to see if that helps. Needs to f/u with PCP. Patient good with this . 08/10 23:36 Order name: Basic Metabolic Panel [facility] 08/10 23:36 Order name: CBC with Diff [facility] 08/10 23:36 Order name: LFT's; Complete Time: 00:35 [facility] 08/10 23:36 Order name: Magnesium; Complete Time: 00:35 [facility] 08/10 23:36 Order name: NT PRO-BNP; Complete Time: 00:35 [facility] 08/10 23:36 Order name: PT-INR; Complete Time: 00:30 [facility] 08/10 23:36 Order name: Troponin (emerg Dept Use Only); Complete Time: 00:35 [facility] 08/10 23:36 Order name: XRAY Chest (1 view) [facility] 08/10 23:36 Order name: Lipase; Complete Time: 00:35 [facility] 08/10 23:36 Order name: Basic Metabolic Panel; Complete Time: 00:35 [facility] 08/10 23:36 Order name: CBC with Automated Diff; Complete Time: 00:30 [facility] 08/11 00:01 Order name: Urine Dipstick-Ancillary; Complete Time: 00:10 EDMD 08/11 00:03 Order name: Urine Dipstick-Ancillary; Complete Time: 03:07 [facility] 08/10 23:36 Order name: EKG; Complete Time: 23:37 [facility] 08/10 23:36 Order name: Cardiac monitoring; Complete Time: 23:50 8 08/10 23:36 Order name: EKG - Nurse/Tech; Complete Time: 23:50 8 08/10 23:36 Order name: IV Saline Lock; Complete Time: :50 [facility] 08/10 23:36 Order name: Labs collected and sent; Complete Time: :50 8 08/10 23:36 Order name: O2 Per Protocol; Complete Time: 23:50 [facility] 08/10 23:36 Order name: O2 Sat Monitoring; Complete Time: :50 [facility] 08/11 00:01 Order name: Urine Dipstick-Ancillary (obtain specimen); Complete Time: 01:46 [facility] Administered Medications: 00:27 Drug: Demerol (meperidine) 25 mg Route: IVP; Site: left antecubital; [facility] 01:46 Follow up: Response: No adverse reaction; Pain is decreased [facility] Disposition: 03:06 Co-signature as Attending Physician, David Merida MD. christy Disposition: 08/11/20 01:05 Discharged to Home. Impression: Generalized abdominal pain, Chest pain, unspecified, Adverse effect of other systemic antibiotics. - Condition is Stable. - Discharge Instructions: Abdominal Pain, Adult, Nonspecific Chest Pain. - Prescriptions for Macrobid 100 mg Oral Capsule - take 1 capsule by ORAL route every 12 hours for 7 days; 14 capsule. - Medication Reconciliation Form, Thank You Letter, Antibiotic Education, Prescription Opioid Use form. - Follow up: Private Physician; When: 2 - 3 days; Reason: Recheck today's complaints, Continuance of care, Re-evaluation by your physician. - Problem is new. - Symptoms have improved. - Notes: Discontinue Levaquin Signatures: Dispatcher [facility] David Merida MD MD pkl Ballard, Brenda, RN RN Armaan Piedra PA PA jr8 Torres Pascual RN RN jm8 Corrections: (The following items were deleted from the chart) 01:47 01:05 08/11/2020 01:05 Discharged to Home. Impression: Generalized abdominal pain; jm8 Chest pain, unspecified; Adverse effect of other systemic antibiotics. Condition is Stable. Forms are Medication Reconciliation Form, Thank You Letter, Antibiotic Education, Prescription Opioid Use. Follow up: Private Physician; When: 2 - 3 days; Reason: Recheck today's complaints, Continuance of care, Re-evaluation by your physician. Problem is new. Symptoms have improved. jr8
[2020-08-11 02:12] VITALS: TEMP 98.6
[2020-08-11 02:15] VITALS: BP 109/52; O2SAT 99
--- NOTE | 2020-08-11 08:50 | RAD REPORT ---
EXAM DESCRIPTION: RAD - Chest Single View - 08/10/2020 11:55 pm CLINICAL HISTORY: CHEST PAIN Chest pain. COMPARISON: Chest Single View dated 04/01/2020; Chest Single View dated 03/11/2020; Chest Single Vie w dated 03/07/2020; Chest Single View dated 11/09/2019 FINDINGS: Portable technique limits examination quality. The lungs are grossly clear. The heart is mildly enlarged with sternotomy wires present. No displaced fractures. IMPRESSION: No acute intrathoracic process suspected.
== END 2020-08-11 01:47 | disposition home or self-care (01) ==
LOC: ER 22:12
DX: R10.84 Generalized abdominal pain (principal); T36.8X5A Adverse effect of other systemic antibiotics, initial encounter; I10 Essential (primary) hypertension; I48.91 Unspecified atrial fibrillation; Z79.01 Long term (current) use of anticoagulants; Z79.82 Long term (current) use of aspirin; Z95.2 Presence of prosthetic heart valve; Z88.5 Allergy status to narcotic agent
CPT/HCPCS: 93005; 85025; 80048; 36415; 83735; 85610; 80076; 81003; 84484; 83690; 83880; 71045; 96374; 99284; J2175

== ENCOUNTER 2021-01-18 18:49 | Inpatient (IN) | payer OTHER ==
[2021-01-18 19:13] LABS: Urine Blood Trace-lysed (Negative); Urine Glucose Negative (Negative); Urine Protein Negative (Negative); Urine Specific Gravity 1.015 (1.005-1.030)
[2021-01-18] MEDS ORDERED: NA CHLORIDE 0.9% 1,000 ML ONE (19:46)
[2021-01-18] MEDS ORDERED: NA CHLORIDE 0.9% 250 ML ONE (19:46)
[2021-01-18 19:51] LABS: Urine Bacteria <20 /HPF (<20); Urine RBC <5 /HPF (NONE SEEN)
[2021-01-18 19:57] LABS: Protime INR 1.88
[2021-01-18] MEDS ORDERED: ONDANSETRON 4 MG/2 ML VIAL ONE (20:03)
[2021-01-18] MEDS ORDERED: MORPHINE 4 MG/ML SYR ONE (20:03)
--- NOTE | 2021-01-18 20:03 | RAD REPORT ---
EXAM DESCRIPTION: RAD - Chest Single View - 01/18/2021 7:55 pm CLINICAL HISTORY: CHEST PAIN Chest pain. COMPARISON: Chest Single View dated 08/10/2020; Chest Single View dated 04/01/2020; Chest Single View dated 03/11/2020; Chest Single View dated 03/07/2020 FINDINGS: Portable technique limits examination quality. Mild interstitial pulmonary edema. The heart is moderately enlarged. Sternotomy wires present. IMPRESSION: Mild CHF.
[2021-01-18] MEDS ORDERED: HYDROMORPHONE HCL 1 MG/ML INJ ONE ×2 (20:06→22:58)
[2021-01-18 20:09] LABS: Absolute Lymphocytes (CBC) 0.6 K/uL (0.7-4.9); Basophils % 0.6 % (0-1.3); Hematocrit 25.1 % (36.0-45.0); Lymphocytes % 24.2 % (15.3-44.8); MPV 9.3 fL (7.6-11.3); RBC Red Blood Cell Count 2.56 M/uL (3.86-4.86)
--- NOTE | 2021-01-18 20:36 | RAD REPORT ---
EXAM DESCRIPTION: CTAbdomen Pelvis W Contrast - 01/18/2021 8:22 pm CLINICAL HISTORY: Abdominal pain. ABD PAIN COMPARISON: Abdomen Pelvis W Contrast dated 10/12/2020; Abdomen Pelvis W Contrast dated 04/27/2020 ; Abdomen Pelvis W Contrast dated 03/07/2020; Abdomen Pelvis W Contrast dated 09/26/2015 TECHNIQUE: Biphasic CT imaging of the abdomen and pelvis was performed with 100 ml non-ionic IV cont rast. All CT scans are performed using dose optimization technique as appropriate and may include automated exposure control or mA/KV adjustment according to patient size. FINDINGS: Trace left pleural effusion.Moderate hiatal hernia noted. The liver, spleen, pancreas, adrenal glands and kidneys are within normal limits. Cholelithiasis. No bowel obstruction, free air, or abscess. Moderate stool is present throughout the colon with sigmo id diverticulosis coli noted. The appendix is normal. Mild free fluid is seen in the pelvis. No evide nce of significant lymphadenopathy. Advanced degenerative changes present in right hip. Moderate lumbar degenerative changes are present. Moderate L1 compression fracture is present, appearing chronic. IMPRESSION: Mild pelvic free fluid is present. Cholelithiasis. Moderate stool is present throughout the colon. Trace left pleural effusion with moderate hiatal hernia.
[2021-01-18 20:38] LABS: ALT/SGPT 28 U/L (12-78); AST/SGOT 35 U/L (15-37); Albumin 3.4 g/dL (3.4-5.0); Alkaline Phosphatase 79 U/L (45-117); Amylase 60 U/L (25-115); BUN Blood Urea Nitrogen 8 mg/dL (7-18); Bicarbonate 29 mmol/L (21-32); Bilirubin Direct 0.1 mg/dL (0-0.2); Bilirubin Total 0.3 mg/dL (0.2-1.0); Creatine Phosphokinase 64 U/L (26-192); Glucose Level 95 mg/dL (74-106); Lipase 91 U/L (73-393); Potassium 3.3 mmol/L (3.5-5.1); Protein, Total 6.5 g/dL (6.4-8.2); Sodium Level 139 mmol/L (136-145); Troponin (Emerg Dept Use Only) < 0.02 ng/mL (0.0-0.045)
[2021-01-18 20:39] LABS: CKMB Creatine Kinase MB < 1.0 ng/mL (1.0-3.6)
[2021-01-18] MEDS ORDERED: ASPIRIN 81 MG CHEWABLE TABLET ONE (20:57)
[2021-01-18] MEDS ORDERED: CEFTRIAXONE 1000 MG/VIAL ONE (20:57)
[2021-01-18 21:05] LABS: Blood Morphology Comment NOT SEEN (NOT SEEN); Platelet Estimate DECR
--- NOTE | 2021-01-18 21:36 | EDPHYS ---
Physician Documentation [facility] Name: Michelle Saavedra Age: 65 yrs Sex: Female : 1955 Arrival Date: 01/18/2021 Time: 18:53 Bed 13 Private MD: ED Physician Cruz Benoit HPI: 01/18 20:24 This 65 yrs old Female presents to ER via Ambulatory with complaints of ma2 Fever, Chest Pain, Urinary Problem. 20:24 The patient reports fever, not measured (subjective). Onset: The symptoms/episode ma2 began/occurred gradually, 2 day(s) ago. Associated signs and symptoms: Pertinent negatives: altered mental status, backache, cough, diarrhea, myalgias, nausea, runny nose, skin rash. Severity of symptoms: At their worst the symptoms were moderate in the emergency department the symptoms are unchanged. The patient has not experienced similar symptoms in the past. 20:25 Patient had UTI yesterday at her PCP, was prescribed nitrofurantoin, she has allergic ma2 reaction to this antibiotic.. Historical: - Allergies: 19:00 Fentanyl; itching; jl7 19:00 Morphine; jl7 - Home Meds: 19:00 aspirin 81 mg Oral tab 1 tab once daily [Active]; atorvastatin 20 mg Oral tab 1 tab jl7 once daily [Active]; Coumadin 2.5 mg Oral tab 1 tab once daily [Active]; gabapentin Oral [Active]; [place] 7.5-325 mg Oral tab 1 tab every 4 hours [Active]; pantoprazole Oral [Active]; sotalol 80 mg Oral tab 2 times per day [Active]; - PMHx: 19:00 Atrial Fib; Back pain; GERD; Hyperlipidemia; Hypertension; mechanical heart valve; jl7 - PSHx: 19:00 Aortic valve replacement; jl7 - Immunization history:: Adult Immunizations not up to date, Client reports having NOT received the Covid vaccine. - Social history:: Smoking status: Patient denies any tobacco usage or history of. Patient/guardian denies using alcohol, street drugs, The patient lives with family. - Family history:: not pertinent. - Hospitalizations: : No recent hospitalization is reported. ROS: 20:24 Constitutional: Negative for fever, chills, and weight loss, Cardiovascular: Negative ma2 for chest pain, palpitations, and edema, Respiratory: Negative for shortness of breath, cough, wheezing, and pleuritic chest pain, Abdomen/GI: Negative for abdominal pain, nausea, diarrhea, and constipation, MS/Extremity: Negative for injury and deformity, Skin: Negative for injury, rash, and discoloration. 20:24 All other systems are negative. Exam: 20:24 Constitutional: This is a well developed, well nourished patient who is awake, alert, ma2 and in no acute distress. Head/Face: Normocephalic, atraumatic. Eyes: Pupils equal round and reactive to light, extra-ocular motions intact. Lids and lashes normal. Conjunctiva and sclera are non-icteric and not injected. Cornea within normal limits. Periorbital areas with no swelling, redness, or edema. ENT: Nares patent. No nasal discharge, no septal abnormalities noted. Tympanic membranes are normal and external auditory canals are clear. Oropharynx with no redness, swelling, or masses, exudates, or evidence of obstruction, uvula midline. Mucous membranes moist. Neck: Trachea midline, no thyromegaly or masses palpated, and no cervical lymphadenopathy. Supple, full range of motion without nuchal rigidity, or vertebral point tenderness. No Meningismus. Chest/axilla: Normal chest wall appearance and motion. Nontender with no deformity. No lesions are appreciated. Cardiovascular: Regular rate and rhythm with a normal S1 and S2. No gallops, murmurs, or rubs. Normal PMI, no JVD. No pulse deficits. Respiratory: Lungs have equal breath sounds bilaterally, clear to auscultation and percussion. No rales, rhonchi or wheezes noted. No increased work of breathing, no retractions or nasal flaring. Abdomen/GI: Soft, non-tender, with normal bowel sounds. No distension or tympany. No guarding or rebound. No evidence of tenderness throughout. Skin: Warm, dry with normal turgor. Normal color with no rashes, no lesions, and no evidence of cellulitis. MS/ Extremity: Pulses equal, no cyanosis. Neurovascular intact. Full, normal range of motion. Neuro: Awake and alert, GCS 15, oriented to person, place, time, and situation. Cranial nerves II-XII grossly intact. Motor strength 5/5 in all extremities. Sensory grossly intact. Cerebellar exam normal. Normal gait. Vital Signs: 18:57 BP 142 / 55; Pulse 81; Resp 17; Temp 99.9(O); Pulse Ox 93% ; Weight 45.36 kg; Height 5 jl7 ft. 3 in. (160.02 cm); Pain 8/10; 19:30 BP 130 / 68; Pulse 86; Resp 18; Pulse Ox 95% on R/A; Pain 9/10; df1 20:56 BP 129 / 86; Pulse 87; Resp 18; Pulse Ox 97% on R/A; df1 22:34 BP 115 / 55; Pulse 57; Resp 18; Pulse Ox 95% on R/A; Pain 8/10; df1 23:08 BP 105 / 58; Pulse 59; Resp 19; Pulse Ox 95% on R/A; df1 01/19 00:30 BP 100 / 45; Pulse 55; Resp 18; Pulse Ox 96% on R/A; Pain 0/10; df1 01/18 18:57 Body Mass Index 17.71 (45.36 kg, 160.02 cm) jl7 MDM: 01/18 19:11 Patient medically screened. ma2 20:24 Differential diagnosis: viral Infection, bacterial infection, URI, pneumonia UTI, ma2 gastroenteritis. 21:34 Data reviewed: vital signs, nurses notes, EMS record. Counseling: I had a detailed ma2 discussion with the patient and/or guardian regarding: the historical points, exam findings, and any diagnostic results supporting the discharge/admit diagnosis, the presence of at least one elevated blood pressure reading (>120/80) during this emergency department visit, the need for outpatient follow up. Response to treatment: the patient's symptoms have markedly improved after treatment. Admission orders: after a detailed discussion of the patient's condition and case, the admit orders are written by me. Admission orders: after a detailed discussion of the patient's condition and case, the admit orders are written by me. ED course: Patient has with A. fib unremarkable otherwise no ischemic changes, she has partially treated UTI with leukopenia, no other component for SIRS,. 01/18 19:14 Order name: Urine Dipstick-Ancillary; Complete Time: 19:14 EDMS 01/18 19:14 Order name: Amylase, Serum ma2 01/18 19:14 Order name: Basic Metabolic Panel ma2 01/18 19:14 Order name: Blood Culture Adult (2) ma2 01/18 19:14 Order name: CBC with Diff; Complete Time: 21:31 ma2 01/18 19:14 Order name: CPK; Complete Time: 21:31 ma2 01/18 19:14 Order name: Ckmb; Complete Time: 21:31 ma2 01/18 19:14 Order name: LFT's; Complete Time: 21:31 ma2 01/18 19:14 Order name: Lactate; Complete Time: 21:31 ma2 01/18 19:14 Order name: Lipase; Complete Time: 21:31 ma2 01/18 19:14 Order name: Procalcitonin; Complete Time: 21:31 ma2 01/18 19:14 Order name: Protime (+inr); Complete Time: 20:28 ma2 01/18 19:14 Order name: Ptt, Activated; Complete Time: 20:28 wv2 01/18 19:14 Order name: Troponin (emerg Dept Use Only); Complete Time: 21:31 ma2 01/18 19:14 Order name: Urine Microscopic Only; Complete Time: 19:52 ma2 01/18 19:15 Order name: Amylase; Complete Time: 21:31 EDMS 01/18 19:15 Order name: Basic Metabolic Panel; Complete Time: 21:31 EDMS 01/18 19:15 Order name: Blood Culture EDMS 01/18 19:38 Order name: Glucose, Ancillary Testing; Complete Time: 19:52 EDMS 01/18 19:39 Order name: Glucose, Ancillary Testing; Complete Time: 19:52 EDMS 01/18 21:05 Order name: Manual Differential; Complete Time: 21:31 EDMS 01/18 21:57 Order name: CREATININE WHOLE BLOOD; Complete Time: 22:14 EDMS 01/18 22:27 Order name: COVID-19 : Document "Date of Symptom Onset" if Symptomatic. wg 01/18 23:23 Order name: CORONAVIRUS EDMS 01/19 00:06 Order name: SARS-COV-2 RT PCR EDMS 01/19 06:44 Order name: Protime (+INR) EDMS 01/19 06:44 Order name: PTT, Activated Partial Thromb EDMS 01/19 06:48 Order name: Troponin I EDMS 01/19 06:51 Order name: CBC with Automated Diff EDMS 01/19 07:19 Order name: Comprehensive Metabolic Panel EDMS 01/18 19:14 Order name: Chest Single View XRAY; Complete Time: 20:28 ma2 01/18 19:14 Order name: Accucheck; Complete Time: 19:28 ma2 01/18 19:14 Order name: Cardiac monitoring; Complete Time: 19:19 ma2 01/18 19:14 Order name: EKG - Nurse/Tech; Complete Time: 19:19 ma2 01/18 19:14 Order name: IV Saline Lock - Large Bore; Complete Time: 19:28 ma2 01/18 19:14 Order name: Labs collected and sent; Complete Time: 19:28 ma2 01/18 19:14 Order name: O2 Per Protocol; Complete Time: 19:19 ma2 01/18 19:14 Order name: O2 Sat Monitoring; Complete Time: 19:19 ma2 01/18 19:14 Order name: Urine Dipstick-Ancillary (obtain specimen); Complete Time: 19:19 ma2 01/18 19:15 Order name: CT Abd/Pelvis - IV Contrast Only; Complete Time: 21:31 ma2 01/18 21:54 Order name: CONS Physician Consult; Complete Time: 23:16 EDMS 01/19 07:19 Order name: Phosphorus EDMS 01/19 07:19 Order name: Troponin I EDMS 01/19 07:19 Order name: NT PRO-BNP EDMS 01/19 07:19 Order name: Lipid Profile EDMS 01/19 07:19 Order name: T4 Free EDMS 01/19 07:19 Order name: Magnesium EDMS 01/19 07:19 Order name: Thyroid Stimulating Hormone EDMS 01/19 07:19 Order name: Transferrin Sat/Iron Binding EDMS 01/19 07:19 Order name: Ferritin EDMS 01/19 07:19 Order name: Folic Acid, (Folate) EDMS 01/19 07:19 Order name: Vitamin B12 Level EDMS 01/19 08:33 Order name: CBC Smear Scan EDMS Administered Medications: 19:51 Drug: NS 0.9% (30 ml/kg) 30 ml/kg Route: IV; Rate: bolus; Site: right forearm; df1 19:53 Drug: Zofran (Ondansetron) 4 mg Route: IVP; Site: right forearm; df1 22:46 Follow up: Response: Nausea is decreased df1 19:53 Drug: Dilaudid (HYDROmorphone) 1 mg Route: IVP; Site: right forearm; df1 22:45 Follow up: Response: No adverse reaction df1 22:46 Follow up: Response: Pain is decreased df1 20:55 Drug: Rocephin (cefTRIAXone) 1 grams Route: IV; Rate: calculated rate; Site: right df1 forearm; 20:55 Drug: Aspirin Chewable Tablet 324 mg Route: PO; df1 22:45 Follow up: Response: No adverse reaction df1 22:44 Drug: Dilaudid (HYDROmorphone) 1 mg Route: IVP; Site: right forearm; df1 Disposition Summary: 01/18/21 21:35 Hospitalization Ordered Hospitalization Status: Observation ma2 Provider: Kam Bartlett Condition: Stable ma2 Problem: new ma2 Symptoms: are unchanged ma2 Bed/Room Type: Standard [facility] Location: Telemetry/MedSurg (observation)(01/19/21 07:23) em1 Room Assignment: 407(01/19/21 07:23) em1 Diagnosis - Acute cystitis ma2 - Chest pain, unspecified ma2 Forms: - Medication Reconciliation Form ma2 - SBAR form ma2 Signatures: Dispatcher [employer] EDRadha Mclaughlin RN RN bb Martinez, Eric em1 Negro Roa RN RN jl7 Cruz Benoit MD MD ma2 Edel Sheridan df1 Corrections: (The following items were deleted from the chart) 01/19 00:52 01/18 21:35 Telemetry/MedSurg (observation) ma2 bb 01/19 00:52 01/18 21:35 ma2 bb 01/19 07:23 00:52 [facility] ER HOLD bb em1 00:52 ERHOLD- bb em1
--- NOTE | 2021-01-18 21:36 | ER ---
Nurse's Notes [facility] Name: Michelle Saavedra Age: 65 yrs Sex: Female : 1955 Arrival Date: 01/18/2021 Time: 18:53 Bed 13 Private MD: Diagnosis: Acute cystitis;Chest pain, unspecified Presentation: 01/18 18:57 Chief complaint: Patient states: Being treated for UTI since yesterday, Dr. barakat, 7 reports abdominal pain since taking the Macrobid, reports left sided chest pain, non-radiating, palpitations x 3 days. Coronavirus screen: At this time, the client does not indicate any symptoms associated with coronavirus-19. Ebola Screen: No symptoms or risks identified at this time. Initial Sepsis Screen: Does the patient meet any 2 criteria? No. Patient's initial sepsis screen is negative. Does the patient have a suspected source of infection? No. Patient's initial sepsis screen is negative. Risk Assessment: Do you want to hurt yourself or someone else? Patient reports no desire to harm self or others. Onset of symptoms was January 15, 2021. 18:57 Method Of Arrival: Ambulatory [facility] 18:57 Acuity: JAKUB 2 jl7 23:06 Note Admitting provider approved pt to eat. Pt given water and snack. Unable to verify df1 home medications and dosages. Admitting provider notified and approved [facility] to be contacted in the morning at [phone]. Triage Assessment: 19:00 General: Appears in no apparent distress. uncomfortable, Behavior is calm, cooperative, jl7 appropriate for age. Pain: Complains of pain in left breast Pain does not radiate. Pain currently is 8 out of 10 on a pain scale. Cardiovascular: Patient's skin is warm and dry. Historical: - Allergies: 19:00 Fentanyl; itching; jl7 19:00 Morphine; jl7 - Home Meds: 19:00 aspirin 81 mg Oral tab 1 tab once daily [Active]; atorvastatin 20 mg Oral tab 1 tab jl7 once daily [Active]; Coumadin 2.5 mg Oral tab 1 tab once daily [Active]; gabapentin Oral [Active]; [place] 7.5-325 mg Oral tab 1 tab every 4 hours [Active]; pantoprazole Oral [Active]; sotalol 80 mg Oral tab 2 times per day [Active]; - PMHx: 19:00 Atrial Fib; Back pain; GERD; Hyperlipidemia; Hypertension; mechanical heart valve; jl7 - PSHx: 19:00 Aortic valve replacement; jl7 - Immunization history:: Adult Immunizations not up to date, Client reports having NOT received the Covid vaccine. - Social history:: Smoking status: Patient denies any tobacco usage or history of. Patient/guardian denies using alcohol, street drugs, The patient lives with family. - Family history:: not pertinent. - Hospitalizations: : No recent hospitalization is reported. Screenin:59 Abuse screen: Denies threats or abuse. Nutritional screening: No deficits noted. df1 Tuberculosis screening: No symptoms or risk factors identified. Fall Risk None identified. Assessment: 20:01 General: Appears in no apparent distress. Behavior is calm, cooperative. Pain: df1 Complains of pain in chest Pain radiates to back Pain began gradually. Neuro: No deficits noted. Cardiovascular: Reports chest pain. Respiratory: Airway is patent Respiratory effort is even, unlabored, Respiratory pattern is regular, Breath sounds are clear bilaterally. GI: Reports cramping. Vital Signs: 18:57 BP 142 / 55; Pulse 81; Resp 17; Temp 99.9(O); Pulse Ox 93% ; Weight 45.36 kg; Height 5 7 ft. 3 in. (160.02 cm); Pain 8/10; 19:30 BP 130 / 68; Pulse 86; Resp 18; Pulse Ox 95% on R/A; Pain 9/10; df1 20:56 BP 129 / 86; Pulse 87; Resp 18; Pulse Ox 97% on R/A; df1 22:34 BP 115 / 55; Pulse 57; Resp 18; Pulse Ox 95% on R/A; Pain 8/10; df1 23:08 BP 105 / 58; Pulse 59; Resp 19; Pulse Ox 95% on R/A; df1 07 00:30 BP 100 / 45; Pulse 55; Resp 18; Pulse Ox 96% on R/A; Pain 0/10; df1 01/18 18:57 Body Mass Index 17.71 (45.36 kg, 160.02 cm) [facility] ED Course: 01/18 18:53 Patient arrived in ED. as 19:00 Triage completed. jl7 19:00 Arm band placed on right wrist. jl7 19:11 Cruz Benoit MD is Attending Physician. ma2 19:17 Edel Sheridan is Primary Nurse. df1 19:28 Urine Microscopic Only Sent. ld1 19:41 Inserted saline lock: 20 gauge in right forearm, using aseptic technique. Blood dh4 collected. 19:50 Basic Metabolic Panel Sent. df1 19:50 Blood Culture Sent. df1 19:50 Amylase Sent. df1 19:50 Amylase, Serum Sent. df1 19:51 Basic Metabolic Panel Sent. df1 19:51 Blood Culture Adult (2) Sent. df1 19:51 Chest Single View XRAY Sent. df1 19:51 CBC with Diff Sent. df1 19:51 CPK Sent. df1 19:51 Ckmb Sent. df1 19:51 LFT's Sent. df1 19:51 Lipase Sent. df1 19:51 Procalcitonin Sent. df1 19:51 Lactate Sent. df1 19:51 Protime (+inr) Sent. df1 19:51 Ptt, Activated Sent. df1 19:51 Urine Microscopic Only Sent. df1 19:51 Troponin (emerg Dept Use Only) Sent. df1 19:55 Chest Single View XRAY In Process Unspecified. EDMS 20:00 Patient has correct armband on for positive identification. Placed in gown. Bed in low df1 position. Call light in reach. Side rails up X 1. cardiac monitor on. Pulse ox on. NIBP on. 20:00 No provider procedures requiring assistance completed. Patient maintains SpO2 df1 saturation greater than 95% on room air. 20:21 CT Abd/Pelvis - IV Contrast Only In Process Unspecified. EDMS 21:35 Kam Bartlett DO is Hospitalizing Provider. ma2 22:53 COVID-19 : Document "Date of Symptom Onset" if Symptomatic. Sent. df1 Administered Medications: 19:51 Drug: NS 0.9% (30 ml/kg) 30 ml/kg Route: IV; Rate: bolus; Site: right forearm; df1 19:53 Drug: Zofran (Ondansetron) 4 mg Route: IVP; Site: right forearm; df1 22:46 Follow up: Response: Nausea is decreased df1 19:53 Drug: Dilaudid (HYDROmorphone) 1 mg Route: IVP; Site: right forearm; df1 22:45 Follow up: Response: No adverse reaction df1 22:46 Follow up: Response: Pain is decreased df1 20:55 Drug: Rocephin (cefTRIAXone) 1 grams Route: IV; Rate: calculated rate; Site: right df1 forearm; 20:55 Drug: Aspirin Chewable Tablet 324 mg Route: PO; df1 22:45 Follow up: Response: No adverse reaction df1 22:44 Drug: Dilaudid (HYDROmorphone) 1 mg Route: IVP; Site: right forearm; df1 Outcome: 21:35 Decision to Hospitalize by Provider. ma2 01/19 08:47 Patient left the ED. iw Signatures: Dispatcher [employer] Eunice Tatum Irene, RN PHILLIP iw Negro Roa RN RN jl7 Cruz Benoit MD MD ct2 Mateo Yepez 4 Leticia Carrera RN RN 1 Edel Sheridan df1
--- NOTE | 2021-01-18 22:40 | P.HP ---
Certification for Inpatient Patient admitted to: Observation With expected LOS: <2 Midnights Patient will require the following post-hospital care: None Practitioner: I am a practitioner with admitting privileges, knowledge of patient current condition, hospital course, and medical plan of care. Services: Services provided to patient in accordance with Admission requirements found in Title 42 Section 412.3 of the Code of Federal Regulations <Emerson Navarrete - Last Filed: 01/18/21 22:34> Patient History Date of Service: 01/18/21 Reason for admission: chest pain History of Present Illness: Ms. Saavedra is a 65 yo F with CHF, afib, HLD, HTN, AoVr on coumadin who presents with 2 days of worsening constant 9/10 left-sided chest pressure beginning at rest. She also reports SOB, subjective fevers, dizziness. Denies nausea and vomiting. She was prescribed nitrofurantoin yesterday for a UTI but she says that it has been making her feel sick. She sees her psychologists every 6 months, with no abnormal findings at that time. Initial troponin wnl. She received a fluid bolus, dilaudid, rocephin and aspirin in the ED. H/H 8.2, plt 127, K 3.3. CXR IMPRESSION: Mild CHF. CTAP IMPRESSION: Mild pelvic free fluid is present. Cholelithiasis. Moderate stool is present throughout the colon. Trace left pleural effusion with moderate hiatal hernia. - Past Medical/Surgical History Diabetic: No -: chronic back pain -: depression -: gallstones -: kidney infection -: GERD -: mechanical aorta -: palpitations -: Atrial fibrillation -: aortic valve replacement -: cardioversion -: tubal ligation - Family History Brother -: Heart disease, Cancer Notes: heart attack Mother -: Heart disease, Diabetes Notes: of heart attack Father -: Heart disease Notes: of heart attack Sister -: Heart disease, Diabetes, Cancer Notes: sisters x2 - DM. sister x1 - heart attack. sister- lung cancer - Social History Smoking Status: Never smoker Alcohol use: No CD- Drugs: No Caffeine use: No Place of Residence: Home <Emerson Navarrete Judi - Last Filed: 01/18/21 22:34> Date of Service: 01/18/21 <Cruz Sabillon - Last Filed: 01/19/21 07:19> Allergies morphine Allergy (Intermediate, Verified 04/27/20 23:29) panic ATTACK; shaking fentanyl Allergy (Verified 04/27/20 23:29) Itching Home Medications: Zolpidem Tartrate [Ambien*] 10 mg PO BEDTIME 07/07/13 Atorvastatin Calcium 40 mg PO BEDTIME 04/30/17 Hydrocodone Bit/Acetaminophen [Hydrocodon-Acetaminoph 7.5-325] 7.5 mg PO TID PRN 03/02/19 Lidocaine 4% Patch [Lidoderm 5% Patch*] 2 patch TOP BEDTIME PRN 03/02/19 Gabapentin [Neurontin*] 300 mg PO TID 11/09/19 Alendronate Sodium 35 mg PO EVERY 7TH DAY 03/11/20 Ascorbic Acid [Vitamin C] 500 mg PO BEDTIME 03/11/20 Diclofenac Sodium 1 coreen TOP DAILY PRN 03/11/20 Multivit-Min/Iron/Folic Acid/K [Adults Multivitamin Tablet] 1 each PO BEDTIME 03/11/20 Pantoprazole [Protonix Tab*] 40 mg PO BIDAC 03/11/20 Sotalol HCl [Betapace*] 80 mg PO BID 03/11/20 Cyclobenzaprine HCl [Flexeril] 5 mg PO Q8H #30 tablet 04/01/20 Warfarin Sodium [Coumadin*] 1 mg PO DAILY 5 PM #45 tab 04/29/20 Review of Systems 10-point ROS is otherwise unremarkable General: Fever, Chills, Sweats, Malaise Respiratory: Shortness of Breath Cardiovascular: Chest Pain, Light Headedness <Emerson Navarrete - Last Filed: 01/18/21 22:34> Physical Examination - Physical Exam General: Alert, In no apparent distress HEENT: Atraumatic, PERRLA, Mucous membr. moist/pink, EOMI, Sclerae nonicteric Neck: Supple, 2+ carotid pulse no bruit, No LAD, Without JVD or thyroid abnormality Respiratory: Normal air movement Cardiovascular: No edema, Regular rate/rhythm, Normal S1 S2 Gastrointestinal: Normal bowel sounds, No tenderness Musculoskeletal: No tenderness Integumentary: No rashes Neurological: Normal speech, Normal strength at 5/5 x4 extr, Normal tone, Normal affect Lymphatics: No axilla or inguinal lymphadenopathy - Studies Laboratory Data (last 24 hrs) 01/18/21 19:35: PT 21.7 H, INR 1.88, APTT 38.5 H 01/18/21 19:35: WBC 2.40 L, Hgb 8.2 L, Hct 25.1 L, Plt Count 127 L 01/18/21 19:35: Sodium 139, Potassium 3.3 L, BUN 8, Creatinine 0.83, Glucose 95, Total Bilirubin 0.3, AST 35, ALT 28, Alkaline Phosphatase 79, Amylase 60, Lipase 91 <Emerson Navarrete - Last Filed: 01/18/21 22:34> - Studies Laboratory Data (last 24 hrs) 01/18/21 19:35: PT 21.7 H, INR 1.88, APTT 38.5 H 01/18/21 19:35: WBC 2.40 L, Hgb 8.2 L, Hct 25.1 L, Plt Count 127 L 01/18/21 19:35: Sodium 139, Potassium 3.3 L, BUN 8, Creatinine 0.83, Glucose 95, Total Bilirubin 0.3, AST 35, ALT 28, Alkaline Phosphatase 79, Amylase 60, Lipase 91 <Cruz Sabillon - Last Filed: 01/19/21 07:19> Assessment and Plan - Problems (Diagnosis) (1) CHF (congestive heart failure) Current Visit: Yes Status: Chronic Qualifiers: Heart failure type: unspecified Heart failure chronicity: chronic Qualified Code(s): I50.9 - Heart failure, unspecified (2) HLD (hyperlipidemia) Current Visit: Yes Status: Chronic Qualifiers: Hyperlipidemia type: unspecified Qualified Code(s): E78.5 - Hyperlipidemia, unspecified (3) HTN (hypertension) Current Visit: Yes Status: Chronic Qualifiers: Hypertension type: primary hypertension Qualified Code(s): I10 - Essential (primary) hypertension (4) Anemia of chronic disease Onset Date: 05/01/17 Current Visit: No Status: Chronic (5) Chest pain Onset Date: 06/15/15 Current Visit: No Status: Acute Qualifiers: Chest pain type: unspecified (6) Chronic atrial fibrillation Current Visit: No Status: Chronic (7) Hypokalemia Onset Date: 01/19/14 Current Visit: No Status: Acute (8) H/O aortic valve repair Current Visit: No Status: Chronic - Plan cardiology consulted, on tele trend troponins, repeat EKG daily ASA, BB, statin, prn NTG repeat INR in the AM potassium replacement repeat urinalyis reconcile and continue home medications DVT ppx Discharge Plan: Home Plan to discharge in: 24 Hours - Advance Directives Does patient have a Living Will: No Does patient have a Durable POA for Healthcare: No - Code Status/Comfort Care Code Status Assessed: Yes (full code ) Critical Care: No Time Spent Managing Pts Care (In Minutes): 70 <Emerson Navarrete - Last Filed: 01/18/21 22:34> Date of Service: 01/18/21 Subjective: Agree with plan of care as mentioned above Physical Examination: Vitals: Afebrile vital signs are stable Physical exam: Cardiovascular: Within normal limits. Lungs: Within normal limits Abdomen: Within normal limits Neuro: Awake, alert, oriented to person place and time Assessment: 1. Chest pain/abdominal pain 2. Dyspnea Plan: 1. Continue with current plan of care <Cruz Sabillon - Last Filed: 01/19/21 07:19>
[2021-01-19] MEDS ORDERED: ONDANSETRON 4 MG/2 ML VIAL IV PRN (01:20)
[2021-01-19] MEDS ORDERED: NITROGLYCERIN 0.4 MG/TAB SL PRN (01:20)
[2021-01-19] MEDS ORDERED: DOCUSATE NA 100 MG CAP PO PRN (01:20)
[2021-01-19] MEDS ORDERED: ACETAMINOPHEN 500 MG TAB PO PRN (01:20)
[2021-01-19] MEDS: KCL 20 MEQ/100 mL IVPB 20 MEQ/100 ML BAG IV SCH ×2 (02:27→05:16)
[2021-01-19] MEDS ORDERED: KCL 20 MEQ/100 mL IVPB 20 MEQ/100 ML BAG IV ONE ×2 (02:38→05:20)
[2021-01-19] MEDS ORDERED: NA CHLORIDE 0.9% 250 ML ONE ×4 (02:39→14:19)
[2021-01-19 06:41] LABS: Absolute Lymphocytes (CBC) 0.6 K/uL (0.7-4.9); Basophils % 1.1 % (0-1.3); Hematocrit 23.2 % (36.0-45.0); Lymphocytes % 24.6 % (15.3-44.8); MPV 9.6 fL (7.6-11.3); RBC Red Blood Cell Count 2.34 M/uL (3.86-4.86)
[2021-01-19 06:42] LABS: Protime INR 2.29
[2021-01-19 07:19] LABS: ALT/SGPT 32 U/L (12-78); AST/SGOT 50 U/L (15-37); Albumin 2.8 g/dL (3.4-5.0); Alkaline Phosphatase 67 U/L (45-117); BUN Blood Urea Nitrogen 9 mg/dL (7-18); Bicarbonate 30 mmol/L (21-32); Bilirubin Total 0.2 mg/dL (0.2-1.0); Ferritin 100.7 ng/mL (8-388); Folic Acid, (Folate) > 20.0 ng/mL (3.1-17.5); Glucose Level 122 mg/dL (74-106); HDL Cholesterol 59 mg/dL (40-60); LDL Cholesterol, Calculated 29 (<130); Magnesium 1.6 mg/dL (1.8-2.4); NT PRO-BNP 2118 pg/mL (<125); Phosphorus 3.5 mg/dL (2.5-4.9); Potassium 3.9 mmol/L (3.5-5.1); Protein, Total 5.6 g/dL (6.4-8.2); Sodium Level 141 mmol/L (136-145); Transferrin 198 mg/dL (200-360); Troponin I < 0.02 ng/mL (0.0-0.045)
--- NOTE | 2021-01-19 07:21 | P.PN ---
Subjective Date of Service: 01/19/21 Patient with pancytopenia. Patient with multiple complaints. With her history of mechanical valve he needs to continue on anticoagulation. However she severely anemic as well. Consult Cardiology and probably needs blood transfusion as well. Review of Systems 10-point ROS is otherwise unremarkable Physical Examination - Vital Signs Temperature: 99 F Blood Pressure: 102/41 Pulse: 58 Respirations: 18 Pulse Ox (%): 97 - Physical Exam General: Alert, In no apparent distress HEENT: Atraumatic, PERRLA, EOMI Neck: Supple, JVD not distended Respiratory: Clear to auscultation bilaterally, Normal air movement Cardiovascular: Regular rate/rhythm, Normal S1 S2 Gastrointestinal: Normal bowel sounds, No tenderness Musculoskeletal: No tenderness Integumentary: No rashes Neurological: Normal speech, Normal tone, Normal affect Lymphatics: No axilla or inguinal lymphadenopathy - Studies Laboratory Data (last 24 hrs) 01/18/21 19:35: PT 21.7 H, INR 1.88, APTT 38.5 H 01/18/21 19:35: WBC 2.40 L, Hgb 8.2 L, Hct 25.1 L, Plt Count 127 L 01/18/21 19:35: Sodium 139, Potassium 3.3 L, BUN 8, Creatinine 0.83, Glucose 95, Total Bilirubin 0.3, AST 35, ALT 28, Alkaline Phosphatase 79, Amylase 60, Lipase 91 Medications List Reviewed: Yes Assessment & Plan - Problems (Diagnosis) (1) CHF (congestive heart failure) Status: Chronic Qualifiers: Heart failure type: unspecified Heart failure chronicity: chronic Qualified Code(s): I50.9 - Heart failure, unspecified (2) HLD (hyperlipidemia) Status: Chronic Qualifiers: Hyperlipidemia type: unspecified Qualified Code(s): E78.5 - Hyperlipidemia, unspecified (3) HTN (hypertension) Status: Chronic Qualifiers: Hypertension type: primary hypertension Qualified Code(s): I10 - Essential (primary) hypertension (4) Atrial fibrillation with rapid ventricular response Onset Date: 05/01/17 Status: Acute (5) Chronic atrial fibrillation Status: Chronic (6) H/O aortic valve repair Status: Chronic (7) Mechanical heart valve present Onset Date: 05/01/17 Status: Chronic - Plan 1. Echocardiogram 2. Start patient on an ARB 3. Start patient on a Beta poornima 4. Cardiology consultation 5. Aggressive diuresis 6. Strict I's and O's 7. Repeat CXR 8. Daily weights 9. Education regarding diet and treatment of congestive heart failure - Advance Directives Does patient have a Living Will: No Does patient have a Durable POA for Healthcare: No - Code Status/Comfort Care Code Status Assessed: Yes Code Status: Full Code Critical Care: No Time Spent Managing PTS Care (In Minutes): 35
[2021-01-19] MEDS ORDERED: Magnesium Sulfate 2gm IVPB 2 G/50 ML BAG IV ONE ×2 (07:28→08:09)
[2021-01-19 08:32] LABS: Anisocytosis 1+; Blood Morphology Comment NOTED (NOT SEEN); Platelet Estimate DECR; Polychromasia 1+; White Blood Cell Scan OK (OK)
[2021-01-19] MEDS ORDERED: INFLUENZA VACCINE (for 6+ mo) 0.5 ML DOSE IMVAC ONE (09:00)
[2021-01-19] MEDS: SOTALOL HCL 80 MG TAB PO SCH ×2 (09:56→19:47)
[2021-01-19] MEDS: ASPIRIN EC 81 MG TAB PO SCH (09:56)
[2021-01-19 10:45] VITALS: BMI 17.9
[2021-01-19] MEDS ORDERED: WARFARIN SODIUM 1 MG TAB PO SCH (17:00)
[2021-01-19] MEDS ORDERED: WARFARIN SODIUM 2 MG TAB PO SCH (17:20)
--- NOTE | 2021-01-19 18:35 | CON ---
Date of Consultation: 01/19/2021 Reason For Consultation: Chest pain. History Of Present Illness: This is a 65-year-old female with history of CHF, AFib, hypertension, hy perlipidemia, presents for 2 days worsening of chest pain on the left side along with cough and short ness of breath. Troponins have been negative. Past Medical History: As outlined above in the HPI. Medications: Refer to reconciliation sheet for detailed list. Allergies: MORPHINE AND FENTANYL. Family History: No premature coronary artery disease or cancer. Social History: Does not smoke or drink. Does not use any drugs. Review of Systems: All systems reviewed and they were negative except for what mentioned in the HPI. Physical Examination: Vital Signs: Temperature is 99.1, pulse 58, breathing at 18, blood pressure 130/63, saturating 92%. General: Pleasant middle-aged female, no apparent distress. Head and Neck: Pupils are equal, reactive to light. Intact eye movements. No JVD. No cervical lym phadenopathy. Neck: Supple. Thyroid is not enlarged. Lungs: Clear to auscultation bilaterally. No rhonchi, rales, or crackles. No accessory muscle use. Heart: Regular rate and rhythm. No extra sounds. Abdomen: Soft, nontender. Bowel sounds positive. No organomegaly. No masses or hernias. No rigid ity or rebound. Extremities: No clubbing or cyanosis. Intact pulses. Skin: No rash. Neurologic: Alert, awake, oriented x3. No acute focal deficits appreciated. Investigations: Troponin 3 sets are negative. Creatinine is 0.8. Hemoglobin is 7.6. INR is 2.29. Assessment And Recommendations: 1.Paroxysmal atrial fibrillation, on sotalol. Rate is controlled. INR is therapeutic; however, she has chronic anemia. I recommend left atrial appendage closure to allow her to come off the Coumadin due to significant anemia. We can arrange for this to be done as an outpatient. 2.Chest pain. Cardiac enzymes are negative. Recommend Lexiscan nuclear stress test to further eval uate the presence of ischemia. Thank you for the consult. /MODL Voice ID: [id number] Report ID: [id number]
[2021-01-19] MEDS: ATORVASTATIN 40 MG TAB PO SCH (19:47)
[2021-01-19] MEDS: HYDROMORPHONE HCL 0.5 MG/0.5 ML INJ IV PRN (20:14)
[2021-01-19] MEDS ORDERED: HYDROMORPHONE HCL 0.5 MG/0.5 ML INJ ONE (20:27)
[2021-01-19 20:46] LABS: Hematocrit 34.9 % (36.0-45.0)
[2021-01-19] MEDS ORDERED: ATORVASTATIN 40 MG TAB PO SCH (21:00)
[2021-01-19] MEDS: MELATONIN 5 MG TABLET PO SCH (21:57)
[2021-01-19] MEDS: LIDOCAINE 4% PATCH TOP SCH (21:57)
[2021-01-20] MEDS: HYDROMORPHONE HCL 0.5 MG/0.5 ML INJ IV PRN ×4 (00:12→21:28)
[2021-01-20] MEDS: ASPIRIN EC 81 MG TAB PO SCH (08:11)
[2021-01-20] MEDS: SOTALOL HCL 80 MG TAB PO SCH ×2 (08:11→21:24)
[2021-01-20 11:44] LABS: Absolute Lymphocytes (CBC) 0.6 K/uL (0.7-4.9); Basophils % 0.6 % (0-1.3); Hematocrit 35.3 % (36.0-45.0); Lymphocytes % 19.2 % (15.3-44.8); MPV 9.1 fL (7.6-11.3); RBC Red Blood Cell Count 3.79 M/uL (3.86-4.86)
[2021-01-20 11:57] LABS: Phosphorus 2.4 mg/dL (2.5-4.9); Potassium 3.8 mmol/L (3.5-5.1)
[2021-01-20] MEDS: METHYLPREDNISOLONE 125 MG INJ IV SCH ×2 (14:50→17:16)
[2021-01-20] MEDS ORDERED: POTASSIUM CL SA 10 MEQ TAB PO ONE (15:00)
[2021-01-20] MEDS ORDERED: WARFARIN SODIUM 1 MG TAB PO SCH (17:00)
[2021-01-20] MEDS: WARFARIN SODIUM 2 MG TAB PO SCH (18:38)
[2021-01-20] MEDS ORDERED: FAMOTIDINE 20 MG TAB PO ONE (20:00)
[2021-01-20] MEDS: LIDOCAINE 4% PATCH TOP SCH ×2 (21:00→21:23)
[2021-01-20] MEDS: ATORVASTATIN 40 MG TAB PO SCH (21:24)
[2021-01-21] MEDS: METHYLPREDNISOLONE 125 MG INJ IV SCH ×5 (00:08→23:49)
[2021-01-21] MEDS: HYDROMORPHONE HCL 0.5 MG/0.5 ML INJ IV PRN ×4 (01:58→22:38)
[2021-01-21] MEDS: ASPIRIN EC 81 MG TAB PO SCH (08:17)
[2021-01-21] MEDS: SOTALOL HCL 80 MG TAB PO SCH ×2 (08:17→21:02)
[2021-01-21] MEDS ORDERED: DIPHENOX/ATROP SULF 1 TAB PO PRN (12:21)
[2021-01-21] MEDS: WARFARIN SODIUM 2 MG TAB PO SCH (17:18)
[2021-01-21] MEDS: ENSURE ENLIVE 237 ML CAN PO SCH (21:00)
[2021-01-21] MEDS: LIDOCAINE 4% PATCH TOP SCH (21:00)
[2021-01-21] MEDS: MELATONIN 5 MG TABLET PO SCH (21:01)
[2021-01-21] MEDS: ATORVASTATIN 40 MG TAB PO SCH (21:02)
[2021-01-22] MEDS: HYDROMORPHONE HCL 0.5 MG/0.5 ML INJ IV PRN ×2 (02:29→06:22)
[2021-01-22] MEDS: METHYLPREDNISOLONE 125 MG INJ IV SCH (06:22)
[2021-01-22 07:29] LABS: Absolute Lymphocytes (CBC) 0.5 K/uL (0.7-4.9); Basophils % 0.3 % (0-1.3); Hematocrit 38.7 % (36.0-45.0); Lymphocytes % 8.8 % (15.3-44.8); MPV 10.2 fL (7.6-11.3); RBC Red Blood Cell Count 4.05 M/uL (3.86-4.86)
[2021-01-22 07:54] LABS: C-Reactive Protein 44.7 mg/L (<3.00); Magnesium 2.2 mg/dL (1.8-2.4)
[2021-01-22] MEDS: SOTALOL HCL 80 MG TAB PO SCH (08:25)
[2021-01-22] MEDS: ENSURE ENLIVE 237 ML CAN PO SCH (08:25)
[2021-01-22] MEDS: ASPIRIN EC 81 MG TAB PO SCH (08:25)
[2021-01-22 10:39] VITALS: O2SAT 92
--- NOTE | 2021-01-28 11:49 | EKG ---
Test Date: 2021-01-20 Test Time: 16:53:54 Tactical Response Group Officer: CONNOR MEASUREMENT RESULTS: Intervals: Rate: 60 [place]: 180 QRSD: 84 QT: 482 QTc: 482 [place]: P: 85 NJ: 180 QRS: 106 T: 93 INTERPRETIVE STATEMENTS: Normal sinus rhythm Rightward axis ST abnormality, possible digitalis effect Abnormal ECG Compared to ECG 01/18/2021 19:12:35 Right-axis deviation now present ST (T wave) deviation still present Electronically Signed On 01-28-21 11:45:46 CDT by Soren Carter
[2021-01-30 15:54] VITALS: BP 102/41; TEMP 99
--- NOTE | 2021-01-30 15:56 | P.PN ---
Date of Service: 01/20/21 Subjective Patient still with some comfort but respirations are improving. Overall patient feels better. Waiting for blood transfusion Review of Systems 10-point ROS is otherwise unremarkable Physical Examination - Vital Signs Reviewed - Physical Exam General: Alert, In no apparent distress Respiratory: Clear to auscultation bilaterally, Normal air movement Cardiovascular: Regular rate/rhythm, Normal S1 S2 Gastrointestinal: Normal bowel sounds, No tenderness Neurological: Normal speech, Normal tone, Normal affect Assessment & Plan - Problems (Diagnosis) (1) CHF (congestive heart failure) Status: Chronic Qualifiers: Heart failure type: unspecified Heart failure chronicity: chronic Qualified Code(s): I50.9 - Heart failure, unspecified (2) HLD (hyperlipidemia) Status: Chronic Qualifiers: Hyperlipidemia type: unspecified Qualified Code(s): E78.5 - Hyperlipidemia, unspecified (3) HTN (hypertension) Status: Chronic Qualifiers: Hypertension type: primary hypertension Qualified Code(s): I10 - Essential (primary) hypertension (4) Atrial fibrillation with rapid ventricular response Onset Date: 05/01/17 Status: Acute (5) Chronic atrial fibrillation Status: Chronic (6) H/O aortic valve repair Status: Chronic (7) Mechanical heart valve present Onset Date: 05/01/17 Status: Chronic - Plan Continue with plan of care as mentioned below: 1. Echocardiogram 2. Transfuse PRBCs 3. Continue beta-poornima therapy 4. Cardiology consultation appreciated 5. Aggressive diuresis 6. Strict I's and O's 7. Repeat CXR 8. Daily weights 9. Education regarding diet and treatment of congestive heart failure
--- NOTE | 2021-01-30 15:57 | P.PN ---
Date of Service: 01/21/21 Subjective Patient is feeling better. Respiratory status is improving. If labs remain stable then anticipate discharge in the morning. Review of Systems 10-point ROS is otherwise unremarkable Physical Examination - Vital Signs Reviewed - Physical Exam General: Alert, In no apparent distress Respiratory: Clear to auscultation bilaterally, Normal air movement Cardiovascular: Regular rate/rhythm, Normal S1 S2 Gastrointestinal: Normal bowel sounds, No tenderness Neurological: Normal speech, Normal tone, Normal affect Assessment & Plan - Problems (Diagnosis) (1) CHF (congestive heart failure) Status: Chronic Qualifiers: Heart failure type: unspecified Heart failure chronicity: chronic Qualified Code(s): I50.9 - Heart failure, unspecified (2) HLD (hyperlipidemia) Status: Chronic Qualifiers: Hyperlipidemia type: unspecified Qualified Code(s): E78.5 - Hyperlipidemia, unspecified (3) HTN (hypertension) Status: Chronic Qualifiers: Hypertension type: primary hypertension Qualified Code(s): I10 - Essential (primary) hypertension (4) Atrial fibrillation with rapid ventricular response Onset Date: 05/01/17 Status: Acute (5) Chronic atrial fibrillation Status: Chronic (6) H/O aortic valve repair Status: Chronic (7) Mechanical heart valve present Onset Date: 05/01/17 Status: Chronic - Plan Continue with plan of care as mentioned below: 1. Echocardiogram did not show any remarkable abnormalities 2. Hemoglobin has stabilized 3. Continue beta-poornima therapy 4. Cardiology consultation appreciated 5. Aggressive diuresis 6. Strict I's and O's 7. Repeat CXR 8. Daily weights 9. Education regarding diet and treatment of congestive heart failure
--- NOTE | 2021-01-30 16:12 | P.DS ---
Discharge Date: 01/22/21 Disposition: ROUTINE DISCHARGE Discharge Condition: GOOD Reason for Admission: chest pain - Problems (1) CHF (congestive heart failure) Status: Chronic Qualifiers: Heart failure type: unspecified Heart failure chronicity: chronic Qualified Code(s): I50.9 - Heart failure, unspecified (2) HLD (hyperlipidemia) Status: Chronic Qualifiers: Hyperlipidemia type: unspecified Qualified Code(s): E78.5 - Hyperlipidemia, unspecified (3) HTN (hypertension) Status: Chronic Qualifiers: Hypertension type: primary hypertension Qualified Code(s): I10 - Essential (primary) hypertension (4) Atrial fibrillation with rapid ventricular response Onset Date: 05/01/17 Status: Acute (5) Chronic atrial fibrillation Status: Chronic (6) H/O aortic valve repair Status: Chronic (7) Mechanical heart valve present Onset Date: 05/01/17 Status: Chronic Brief History of Present Illness: Ms. Saavedra is a 65 yo F with CHF, afib, HLD, HTN, AoVr on coumadin who presents with 2 days of worsening constant 9/10 left-sided chest pressure beginning at rest. She also reports SOB, subjective fevers, dizziness. Denies nausea and vomiting. She was prescribed nitrofurantoin yesterday for a UTI but she says that it has been making her feel sick. She sees her lead mechanic every 6 months, with no abnormal findings at that time. Initial troponin wnl. She received a fluid bolus, dilaudid, rocephin and aspirin in the ED. H/H 8.2, plt 127, K 3.3. Hospital Course: Patient was diuresed and patient was also transfuse 2 units of packed red blood cells. Patient's clinical symptoms improved during hospital stay. Patient is clinically doing much better at this time. Patient is stable for discharge home. Vital Signs/Physical Exam: Temp Pulse Resp BP Pulse Ox 99 F 58 18 102/41 L 97 01/30/21 15:54 01/30/21 15:54 01/30/21 15:54 01/30/21 15:54 01/30/21 15:54 General: Alert, In no apparent distress, Oriented x3 Laboratory Data at Discharge: WBC 5.30 K/uL (4.3-10.9) D 01/22/21 07:05 Hgb 12.5 g/dL (12.0-15.0) 01/22/21 07:05 Hct 38.7 % (36.0-45.0) 01/22/21 07:05 Plt Count 148 K/uL (152-406) L D 01/22/21 07:05 PT 26.6 SECONDS (9.5-12.5) H 01/19/21 06:00 INR 2.29 01/19/21 06:00 APTT 38.6 SECONDS (24.3-36.9) H 01/19/21 06:00 Sodium 141 mmol/L (136-145) 01/20/21 11:30 Potassium 4.4 mmol/L (3.5-5.1) 01/20/21 20:24 BUN 8 mg/dL (7-18) 01/20/21 11:30 Creatinine 0.74 mg/dL (0.55-1.3) 01/20/21 11:30 Glucose 110 mg/dL (74-106) H 01/20/21 11:30 Phosphorus 2.4 mg/dL (2.5-4.9) L 01/20/21 11:30 Magnesium 2.2 mg/dL (1.8-2.4) 01/22/21 07:05 Total Bilirubin 0.2 mg/dL (0.2-1.0) 01/19/21 06:00 AST 50 U/L (15-37) H 01/19/21 06:00 ALT 32 U/L (12-78) 01/19/21 06:00 Alkaline Phosphatase 67 U/L (45-117) 01/19/21 06:00 Troponin I 0.28 ng/mL (0.0-0.045) H 01/21/21 03:59 Triglycerides 89 mg/dL (<150) 01/19/21 06:00 Cholesterol 106 mg/dL (<200) 01/19/21 06:00 HDL Cholesterol 59 mg/dL (40-60) 01/19/21 06:00 Cholesterol/HDL Ratio 1.80 01/19/21 06:00 Amylase 60 U/L (25-115) 01/18/21 19:35 Lipase 91 U/L (73-393) 01/18/21 19:35 Home Medications: Atorvastatin Calcium [Lipitor*] 40 mg PO DAILY 01/25/21 Gabapentin 300 mg PO DAILY 01/25/21 Pantoprazole [Protonix Tab*] 40 mg PO DAILY 01/25/21 Amiodarone HCl [Cordarone*] 400 mg PO SEECOM #72 tab 01/29/21 Ascorbic Acid [Vitamin C*] 500 mg PO TID #90 tablet 01/29/21 Cholecalciferol (Vitamin D3) [Vitamin D 1000 Iu Tab*] 2,000 unit PO DAILY #60 tab 01/29/21 Ensure Enlive 237 ml PO BID #60 can 01/29/21 Metoprolol Tartrate [Lopressor*] 12.5 mg PO BID 6AM 6PM #60 tab 01/29/21 Thiamine HCl [Vitamin B-1*] 100 mg PO DAILY #30 tablet 01/29/21 Warfarin Sodium [Coumadin*] 1 mg PO DAILY 5 PM #30 tab 01/29/21 Zinc Sulfate [Zinc Sulfate*] 220 mg PO DAILY #30 cap 01/29/21 Physician Discharge Instructions: OK TO DC IV AND DC HOME FOLLOW-UP WITH PRIMARY CARE PROVIDER IN 1-2 WEEKS FOLLOW-UP WITH Hematology IN 1-2 WEEKS Follow-up with Cardiology for possible atrial appendage RETURN TO THE ER if symptoms worsen CALL or TEXT DR. RAMIREZ AT [phone] IF ANY QUESTIONS REGARDING HOSPITAL STAY. PLEASE CALL THE FLOOR AT [phone] IF ANY MEDICATION OR NURSING QUESTIONS. Diet: AHA Activity: Fall precautions Followup: [facility] [Provider Group] (Follow up with your lead mechanic OR call to schedule an appointment with [facility] ) Saurabh Dobson MD [Primary Care Provider] - 1-2 Weeks (PCP- call to schedule an appointment ) Time spent managing pt's care (in minutes): 35
--- OUTSIDE RECORDS SUMMARY | 2021-02-23 05:28 | XMS REPORT | Continuity of Care Document ---
:1955 Author Organization [facility] t Address [address] [place] [address] Care Team Providers Name Role Phone Dobson, E Primary Care Physician ALETHA Attending Clinician Unavailable Pob, Lab Main Attending Clinician Unavailable Aletha LOVELL Attending Clinician Doctor Unassigned, Name Attending Clinician Unavailable Franco FISHER Attending Clinician Unavailable WALLY Attending Clinician Unavailable Singer HOLM Attending Clinician iLonel DO Attending Clinician Wally LOVELL Attending Clinician Alejandrina MCDOWELL Attending Clinician Unavailable Ricarda IZQUIERDO Attending Clinician Unavailable RADIOLOGY Attending Clinician Unavailable SHARRON Attending Clinician Unavailable WALLY Admitting Clinician Unavailable Wally LOVELL Admitting Clinician Payers Payer Name Policy Type Policy Number Effective Date Expiration Date Judi laughlinjosé miguel MARCELLA/[facility] DUAL [id number] 2020 COMP HMO D SNP 00:00:00 [facility] STAR [id number] 2013 PLUS 00:00:00 MEDICAID [facility] [id number] 2021 00:00:00 Problems Condition Condition Condition Status Onset Resolution Last Treating Co mments Source Name Details Category Date Date Treatment Clinician Date Elevated Elevated Disease Active 2020-04 Un[facility] rs brain brain 0-24 ity of natriureti natriureti 00:[place] c peptide c peptide 00 Medi tyrone (BNP) (BNP) Branch level level Lab test Lab test Disease Active 2020-04 Unive rs positive positive 0-24 ity of for for 00:00: [place] detection detection 00 Medi tyrone of of Branch COVID-19 COVID-19 virus virus Acute on Acute on Disease Active 2020-04 Unive rs chronic chronic 0-24 ity of diastolic diastolic 00:00: Jose Elias s CHF CHF 00 Medical (congestiv (congestiv Br anch e heart e heart failure), failure), NYHA class NYHA class 3 3 Mixed Mixed Disease Active Univers hyperlipid hyperlipid 8-20 it y of emia emia 00:00: [place] 00 Medical Branch Essential Essential Disease Active Uni vers hypertensi hypertensi 8-20 it y of on on 00:00: [place] [facility] Anticoagul Anticoagul Disease Active U sylvesterers ated ated 8-20 ity of 00:00: [place] 00 Medical Branch Coronary Coronary Disease Active Unive rs artery artery 8-20 ity of disease disease 00:00: [place] involving involving 00 Medi [place] coronary coronary artery of artery of [place] 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 2-20 ity of disease disease 00:00: [place] involving involving 00 Medi tyrone [place] Branch heart heart without without angina angina pectoris, pectoris, unspecifie unspecifie d vessel d vessel or lesion or lesion type type Atrial Atrial Disease Active Univers flutter flutter 4-03 ity of 00:00: [place] 00 Medical Branch Aortic Aortic Disease Active 2015-04 Univers valve valve 0-28 ity of replaced replaced 00:00: [place] [Z95.2] [Z95.2] 00 Medical Branch Chest pain Chest pain Disease Active 2015-04 U nivers with high with high 0-22 ity of risk for risk for 00:00: [place] cardiac cardiac 00 Medical etiology etiology Branch Allergies, Adverse Reactions, Alerts Allergy Allergy Status Severity Reaction(s) Onset Inactive Treating Comm ents Source Name Type Date Date Clinician MORPHINE DRUG Active High SOB 2006- Univers INGREDI 1-15 ity of 00:00: [place] 00 Medical Branch Morphine Propensi Active Shortness of 2007-0 Univers ty to Breath 1-15 ity of adverse 00:00: [place] reaction 00 Medical s to Branch drug Social History Social Habit Start Date Stop Date Quantity Comments Source Exposure to Unable to assess Univers ity of SARS-CoV-2 [place] Medical (event) Branch Tobacco use and 2017-06-04 2017-06-04 Never used Universit y of exposure 00:00:00 00:00:00 [facility] Sex Ass[birth year] At [birth year] Universit y of 00:00:00 00:00:00 [facility] Smoking Status Start Date Stop Date Source Never smoker [facility] Medications Ordered Filled Start Stop Current Ordering Indication Dosage Frequency Signature Comments Components Source Medication Medication Date Date Medication? Clinician (SIG) Name Name warfarin 2 2020-04 Yes [id number] Take 1 [facility] mg tablet 1-03 tablet by ity o f 00:00: mouth 5 [place] 00 days a Medical week. Then Branch .5 tab (1 mg) 2 days per week. warfarin 2 2020-04 Yes [id number] 2mg Take 1 [facility] mg tablet 0-29 tablet by ity o f 00:00: mouth [place] 00 every Mon, Medical Wed, Fri Branch and Sun in the evening. Take 1 tablet by mouth 7 days a week. polyethylen 2020-04 Yes [id number] 17g Take 1 Univers e glycol 0-29 Packet by ity of 3350 17 00:00: mouth [place] gram powder 00 daily. Medica l Branch warfarin 2 2020-04 Yes [id number] 2mg Take 1 [facility] mg tablet 0-29 tablet by ity o f 00:00: mouth [place] 00 every Mon, Medical Wed, Fri Branch and Sun in the evening. Take 1 tablet by mouth 7 days a week. polyethylen 2020-04 Yes [id number] 17g Take 1 Univers e glycol 0-29 Packet by ity of 3350 17 00:00: mouth [place] gram powder 00 daily. Medica l Branch warfarin 2 2020-04 Yes [id number] 2mg Take 1 [facility] mg tablet 0-29 tablet by ity o f 00:00: mouth [place] 00 every Mon, Medical Wed, Fri Branch and Sun in the evening. Take 1 tablet by mouth 7 days a week. polyethylen 2020-04 Yes [id number] 17g Take 1 Univers e glycol 0-29 Packet by ity of 3350 17 00:00: mouth [place] gram powder 00 daily. Medica l Branch warfarin 2 2020-04 Yes [id number] 2mg Take 1 [facility] mg tablet 0-29 tablet by ity o f 00:00: mouth [place] 00 every Mon, Medical Wed, Fri Branch and Sun in the evening. Take 1 tablet by mouth 7 days a week. polyethylen 2020-04 Yes [id number] 17g Take 1 Univers e glycol 0-29 Packet by ity of 3350 17 00:00: mouth [place] gram powder 00 daily. Medica l Branch polyethylen 2020-04 Yes [id number] 17g Take 1 Univers e glycol 0-29 Packet by ity of 3350 17 00:00: mouth [place] gram powder 00 daily. Medica l Branch digoxin 125 2020-04- Yes [id number] .125mg Take 1 Univers mcg tablet 0-29 11-29 tablet by ity of 00:00: 05:59 mouth [place] 00 :00 daily for Medical 30 days. Branch digoxin 125 2020-04- Yes [id number] .125mg Take 1 Univers mcg tablet 0-29 11-29 tablet by ity of 00:00: 05:59 mouth [place] 00 :00 daily for Medical 30 days. Branch digoxin 125 2020-04- Yes [id number] .125mg Take 1 Univers mcg tablet 0-29 11-29 tablet by ity of 00:00: 05:59 mouth [place] 00 :00 daily for Medical 30 days. Branch digoxin 125 2020-04- Yes [id number] .125mg Take 1 Univers mcg tablet 0-29 11-29 tablet by ity of 00:00: 05:59 mouth [place] 00 :00 daily for Medical 30 days. Branch digoxin 125 2020-04- Yes [id number] .125mg Take 1 Univers mcg tablet 0-29 11-29 tablet by ity of 00:00: 05:59 mouth [place] 00 :00 daily for Medical 30 days. Branch warfarin 2 2020-04- No [id number] 2mg Take 1 U nivers mg tablet 0-29 11-03 tablet by ity of 00:00: 00:00 mouth [place] 00 :00 every Mon, Medical Sat, Sat Branch and Sun in the evening. Take 1 tablet by mouth 7 days a week. warfarin 2020-04- Yes 3mg 3 mg, Univers (COUMADIN) 0-09 02- Oral, ONCE it y of tablet 3 mg 22:00: 09:59 AT 1700, 1 [place] 00 :00 dose, On Medical [facility] 02/09/21 at 1700, Routine
INR Goal Range: 2.5-3.5&lt ;br>INDICA TION (More than one indication for warfarin can be selected): Mechanical AVR, Atrial fibrillati on/flutter polyethylen 2020-04 Yes 17g 17 g, Unive rs e glycol 0-28 Oral, ity of 3350 powder 14:15: DAILY, [place] 17 g 00 First dose Medical on [facility] 02/09/21 at 0915, Until Discontinu ed, Routine docusate 2020-04 Yes 100mg 100 mg, Unive rs (COLACE) 0- Oral, BID, ity o f capsule 100 14:15: First dose [place] mg 00 on [facility] 02/09/21 Branch at 0915, Until Discontinu ed, Routine bisacodyL 2020-04 Yes 10mg 10 mg, Univer s (DULCOLAX) 0- Rectal, ity of suppository 14:01: QDAILYPRN, [place] 10 mg 41 Starting Medical on [facility] 02/09/21 at 0901, Until Discontinu ed, Routine, Constipati on unresolved by oral medication s metoprolol 2020-04- No 25mg Take 25 mg Univers tartrate 25 0-09 02-28 by mouth 2 i ty of mg tablet 12:39: 00:00 (two) [place] 48 :00 times Medical daily. Branch amiodarone 2020-04- No 200mg Take 200 U nivers HCl 0-28 10-28 mg by ity of (AMIODARONE 12:39: 00:00 mouth 2 [place] ORAL) 48 :00 (two) Medical times [place] daily. magnesium 2020-04 Yes 400mg 400 mg, Univ ers oxide 0-28 Oral, BID, ity of (MAG-OX 01:00: [place] 400) tablet 00 (after Medica l 400 mg last Branch modificati on) on Sat02/08/21 at 1999, Until Discontinu ed, Routine docusate 2020-04 Yes [id number] 100mg Take 1 U nivers 100 mg 0-28 capsule by ity of capsule 00:00: mouth 2 [place] 00 (two) Medical times Branch daily. docusate 2020-04 Yes [id number] 100mg Take 1 U nivers 100 mg 0-28 capsule by ity of capsule 00:00: mouth 2 [place] 00 (two) Medical times Branch daily. docusate 2020-04 Yes [id number] 100mg Take 1 U nivers 100 mg 0-28 capsule by ity of capsule 00:00: mouth 2 [place] 00 (two) Medical times Branch daily. docusate 2020-04 Yes [id number] 100mg Take 1 U nivers 100 mg 0-28 capsule by ity of capsule 00:00: mouth 2 [place] 00 (two) Medical times Branch daily. docusate 2020-04 Yes [id number] 100mg Take 1 U nivers 100 mg 0-28 capsule by ity of capsule 00:00: mouth 2 [place] 00 (two) Medical times Branch daily. metoprolol 2020-04- Yes [id number] 50mg Take 1 Univers tartrate 50 0-28 11-28 tablet by it y of mg tablet 00:00: 05:59 mouth 2 [place] 00 :00 (two) Medical times Branch daily for 30 days. warfarin 3 2020-04- Yes [id number] 3mg Take 1 Univers mg tablet 0-28 11-28 tablet by ity of 00:00: 05:59 mouth [place] 00 :00 every Medical Saturday, Branch and Saturday in the evening for 30 days. furosemide 2020-04- Yes [id number] 20mg Take 1 Univers 20 mg 0-28 11-28 tablet by ity of tablet 00:00: 05:59 mouth 2 [place] 00 :00 (two) Medical times Branch daily for 30 days. magnesium 2020-04- Yes [id number] 400mg Take 400 Univers oxide 420 0-28 11-28 mg by ity of mg Tab 00:00: 05:59 mouth [place] 00 :00 daily for Medical 30 days. Branch KCL 10 mEq 2020-04- Yes [id number] 10meq Take 1 Univers tablet 0-28 11-28 tablet by ity of 00:00: 05:59 mouth [place] 00 :00 daily for Medical 30 days. Branch metoprolol 2020-04- Yes [id number] 50mg Take 1 Univers tartrate 50 0-28 11-28 tablet by it y of mg tablet 00:00: 05:59 mouth 2 [place] 00 :00 (two) Medical times [place] daily for 30 days. warfarin 3 2020-04- Yes [id number] 3mg Take 1 Univers mg tablet 0-28 11-28 tablet by ity of 00:00: 05:59 mouth [place] 00 :00 every Medical Saturday, Branch and Saturday in the evening for 30 days. furosemide 2020-04- Yes [id number] 20mg Take 1 Univers 20 mg 0-28 11-28 tablet by ity of tablet 00:00: 05:59 mouth 2 [place] 00 :00 (two) Medical times [place] daily for 30 days. magnesium 2020-04- Yes [id number] 400mg Take 400 Univers oxide 420 0-28 11-28 mg by ity of mg Tab 00:00: 05:59 mouth [place] 00 :00 daily for Medical 30 days. Branch KCL 10 mEq 2020-04- Yes [id number] 10meq Take 1 Univers tablet 0-28 11-28 tablet by ity of 00:00: 05:59 mouth [place] 00 :00 daily for Medical 30 days. Branch metoprolol 2020-04- Yes [id number] 50mg Take 1 Univers tartrate 50 0-28 11-28 tablet by it y of mg tablet 00:00: 05:59 mouth 2 [place] 00 :00 (two) Medical times [place] daily for 30 days. warfarin 3 2020-04- Yes [id number] 3mg Take 1 Univers mg tablet 0-28 11-28 tablet by ity of 00:00: 05:59 mouth [place] 00 :00 every Medical Saturday, Branch and Saturday in the evening for 30 days. furosemide 2020-04- Yes [id number] 20mg Take 1 Univers 20 mg 0-28 11-28 tablet by ity of tablet 00:00: 05:59 mouth 2 [place] 00 :00 (two) Medical times Branch daily for 30 days. magnesium 2020-04- Yes [id number] 400mg Take 400 Univers oxide 420 0-28 11-28 mg by ity of mg Tab 00:00: 05:59 mouth [place] 00 :00 daily for Medical 30 days. Branch KCL 10 mEq 2020-04- Yes [id number] 10meq Take 1 Univers tablet 0-28 11-28 tablet by ity of 00:00: 05:59 mouth [place] 00 :00 daily for Medical 30 days. Branch metoprolol 2020-04- Yes [id number] 50mg Take 1 Univers tartrate 50 0-28 11-28 tablet by it y of mg tablet 00:00: 05:59 mouth 2 [place] 00 :00 (two) Medical times [place] daily for 30 days. warfarin 3 2020-04- Yes [id number] 3mg Take 1 Univers mg tablet 0-28 11-28 tablet by ity of 00:00: 05:59 mouth [place] 00 :00 every Medical Saturday, Branch and Saturday in the evening for 30 days. furosemide 2020-04- Yes [id number] 20mg Take 1 Univers 20 mg 0-28 11-28 tablet by ity of tablet 00:00: 05:59 mouth 2 [place] 00 :00 (two) Medical times Branch daily for 30 days. magnesium 2020-04- Yes [id number] 400mg Take 400 Univers oxide 420 0-28 11-28 mg by ity of mg Tab 00:00: 05:59 mouth [place] 00 :00 daily for Medical 30 days. Branch KCL 10 mEq 2020-04- Yes [id number] 10meq Take 1 Univers tablet 0-28 11-28 tablet by ity of 00:00: 05:59 mouth [place] 00 :00 daily for Medical 30 days. Branch metoprolol 2020-04- Yes [id number] 50mg Take 1 Univers tartrate 50 0-28 11-28 tablet by it y of mg tablet 00:00: 05:59 mouth 2 [place] 00 :00 (two) Medical times Branch daily for 30 days. furosemide 2020-04- Yes [id number] 20mg Take 1 Univers 20 mg 0-28 11-28 tablet by ity of tablet 00:00: 05:59 mouth 2 [place] 00 :00 (two) Medical times Branch daily for 30 days. magnesium 2020-04- Yes [id number] 400mg Take 400 Univers oxide 420 0-28 11-28 mg by ity of mg Tab 00:00: 05:59 mouth [place] 00 :00 daily for Medical 30 days. Branch KCL 10 mEq 2020-04- Yes [id number] 10meq Take 1 Univers tablet 0-28 11-28 tablet by ity of 00:00: 05:59 mouth [place] 00 :00 daily for Medical 30 days. Branch warfarin 3 2020-04- No [id number] 3mg Take 1 Univers mg tablet 0-28 11-03 tablet by ity of 00:00: 00:00 mouth [place] 00 :00 every Medical Saturday, Branch and Saturday in the evening for 30 days. warfarin 2020-04- No 2mg 2 mg, Univers (COUMADIN) 0-27 10-27 Oral, ONCE it y of tablet 2 mg 22:00: 23:49 AT 1700, 1 [place] 00 :00 dose, On [facility] Sat [place] 02/08/21 at 1700, Routine
INR Goal Range: 2.5-3.5&lt ;br>INDICA TION (More than one indication for warfarin can be selected): Mechanical AVR, Atrial fibrillati on/flutter magnesium 2020-04- No 400mg 400 mg, Uni vers oxide 0-27 10-27 Oral, ity of (MAG-OX 14:00: 22:26 DAILY, [place] 400) tablet 00 :14 First dose Me dical 400 mg on Sat [place] 02/08/21 at 0900, Until Discontinu ed, Routine warfarin 2020-04- No 2mg 2 mg, Univers (COUMADIN) 0-26 10-26 Oral, ONCE it y of tablet 2 mg 22:00: 22:17 AT 1700, 1 [place] 00 :00 dose, On [facility] Sat [place] 02/07/21 at 1700, Routine
INR Goal Range: 2.5-3.5&lt ;br>INDICA TION (More than one indication for warfarin can be selected): Mechanical AVR, Atrial fibrillati on/flutter digoxin 2020-04 Yes 125ug 125 mcg, Unive rs (LANOXIN) 0-26 Oral, ity of tablet 125 14:00: DAILY, [place] mcg 00 First dose Medical on [facility] 02/07/21 at 0900, Until Discontinu ed, Routine digoxin 2020-04- No 250ug 250 mcg, Univ ers (LANOXIN) 0-25 10-25 Intravenou ity of injection 21:00: 21:10 s, ONCE, 1 [place] 250 mcg 00 :00 dose, On [facility] 02/06/21 at 1600, Routine digoxin 2020-04- No .5mg 500 mcg Univer s (LANOXIN) 0-25 10-25 (0.5 mg), ity of injection 14:45: 15:00 Intravenou [place] 500 mcg 00 :00 s, ONCE, 1 Medica l dose, On [facility] 02/06/21 at 0945, Routine atorvastati 2020-04 Yes 40mg 40 mg, Univ ers n (LIPITOR) 0-25 Oral, QHS, it y of tablet 40 02:00: First dose [place] mg 00 on [facility] 02/05/21 Branch at 2100, Until Discontinu ed, Routine metoprolol 2020-04 Yes 50mg 50 mg, Unive rs tartrate 0-25 Oral, BID, ity o f (LOPRESSOR) 01:00: First dose [place] tablet 50 00 (after Medical mg last Branch modificati on) on [place] 02/05/21 at 2000, Until Discontinu ed, Routine pantoprazol 2020-04 Yes 40mg 40 mg, Univ ers e 0-24 Oral, ity of (PROTONIX) 14:00: DAILY, [place] EC tablet 00 First dose Medi tyrone 40 mg on [facility] 02/05/21 at 0900, Until Discontinu ed, Routine lidocaine 2020-04 Yes 1{patch 1 Patch, U nivers (LIDODERM) 0-24 } Topical, ity o f 5 % (700 14:00: Administer Babak as mg/patch) 00 over 12 Medical patch 1 Hours, Branch Patch DAILY, First dose on [place] 02/05/21 at 0900, Until Discontinu ed, Routine aspirin 2020-04 Yes 81mg 81 mg, Univers chewable 0-24 Oral, ity of tablet 81 14:00: DAILY, [place] mg 00 First dose Medical on [facility] 02/05/21 at 0900, Until Discontinu ed, Routine furosemide 2020-04 Yes 20mg 20 mg, Unive rs (LASIX) 0-24 Slow IV ity of injection 13:45: Push, [place] 20 mg 00 Q12H, Medical First dose Branch on [place] 02/05/21 at 0845, Until Discontinu ed, Routine gabapentin 2020-04 Yes 300mg 300 mg, Uni vers (NEURONTIN) 0-24 Oral, TID, it y of capsule 300 13:00: First dose [place] mg 00 on [place] [facility] 02/05/21 Branch at 0800, Until Discontinu ed, Routine metoprolol 2020-04- No 25mg 25 mg, Univ ers tartrate 0-24 10-24 Oral, BID, ity of (LOPRESSOR) 13:00: 15:33 First dose [place] tablet 25 00 :46 on [place] Medical mg 02/05/21 Branch at 0800, Until Discontinu ed, Routine FENTanyl PF 2020-04- No 50ug 50 mcg, Un [facility]ong (SUBLIMAZE 0-24 - Slow IV ity o f (PF)) 07:18: 14:00 Push, [place] injection 28 :56 Q4HPRN, Medical 50 mcg Starting Branch on [place] 02/05/21 at 0218, Until [place] 02/09/21 at 0900, Routine, breakthrou gh iohexol 2020-04- No [id number] 100mL 100 mL, [facility] (OMNIPAQUE 0-24 10-24 Intravenou it y of 350 07:15: 07:03 s, ONCE, 1 [place] BULK-100 00 :00 dose, On Medical mL) [facility] injection 02/05/21 100 mL at 0215, Routine HYDROcodone 2020-04 Yes 1{tbl} 1 tablet, Univers -acetaminop 0-24 Oral, ity of hen (NORCO) 06:07: Q6HPRN, [place] as 10-325 mg 25 Starting Medica l tablet 1 on [facility] tablet 02/05/21 at 0107, Until Discontinu ed, Routine, Pain (scale 7-10) warfarin 2 Yes [id number] 2mg Take 1 [facility]ong mg tablet 9-20 tablet by ity o f 00:00: mouth [place] 00 every Medical evening. Branch Take 1 tablet by mouth 7 days a week. warfarin 2 2020- No [id number] 2mg Take 1 U nivers mg tablet 01-02- tablet by ity of 00:00: 00:00 mouth [place] 00 :00 every Medical evening. Branch Take 1 tablet by mouth 7 days a week. atorvastati Yes [id number] 40mg Take 1 Univers n 40 mg 6-25 tablet by ity of tablet 00:00: mouth at [place] 00 bedtime. Medical Branch atorvastati Yes [id number] 40mg Take 1 Univers n 40 mg 6-25 tablet by ity of tablet 00:00: mouth at [place] 00 bedtime. Medical Branch atorvastati Yes [id number] 40mg Take 1 Univers n 40 mg 6-25 tablet by ity of tablet 00:00: mouth at [place] 00 bedtime. Medical Branch atorvastati Yes [id number] 40mg Take 1 Univers n 40 mg 6-25 tablet by ity of tablet 00:00: mouth at [place] 00 bedtime. Medical Branch atorvastati Yes [id number] 40mg Take 1 Univers n 40 mg 6-25 tablet by ity of tablet 00:00: mouth at [place] 00 bedtime. Medical Branch atorvastati Yes [id number] 40mg Take 1 Univers n 40 mg 6-25 tablet by ity of tablet 00:00: mouth at [place] 00 bedtime. Medical Branch atorvastati Yes [id number] 40mg Take 1 Univers n 40 mg 6-25 tablet by ity of tablet 00:00: mouth at [place] 00 bedtime. Medical Branch atorvastati Yes [id number] 40mg Take 1 Univers n 40 mg 6-25 tablet by ity of tablet 00:00: mouth at [place] 00 bedtime. Medical Branch atorvastati Yes [id number] 40mg Take 1 Univers n 40 mg 6-25 tablet by ity of tablet 00:00: mouth at [place] 00 bedtime. Medical Branch atorvastati Yes [id number] 40mg Take 1 Univers n 40 mg 6-25 tablet by ity of tablet 00:00: mouth at [place] 00 bedtime. Medical Branch atorvastati 0 Yes [id number] 40mg Take 1 Univers n 40 mg 6-25 tablet by ity of tablet 00:00: mouth at 00 bedtime. Medical Branch sotaloL 80 2020-0 Yes 80mg Take 1 Unive rs mg tablet 5-26 tablet by ity o f 00:00: mouth 2 (two) Medical times Branch daily. sotaloL 80 2020-0 Yes 80mg Take 1 Unive rs mg tablet 5-26 tablet by ity o f 00:00: mouth 2 (two) Medical times Branch daily. sotaloL 80 2020-0 Yes 80mg Take 1 Unive rs mg tablet 5-26 tablet by ity o f 00:00: mouth 2 (two) Medical times Branch daily. sotaloL 80 0 Yes 80mg Take 1 Unive rs mg tablet 5-26 tablet by ity o f 00:00: mouth 2 (two) Medical times Branch daily. sotaloL 80 2020-0 Yes 80mg Take 1 Unive rs mg tablet 5-26 tablet by ity o f 00:00: mouth 2 (two) Medical times Branch daily. sotaloL 80 2020-0 Yes 80mg Take 1 Unive rs mg tablet 5-26 tablet by ity o f 00:00: mouth (two) Medical times Branch daily. sotaloL 80 2020- No 80mg Take 1 Univ ers mg tablet 5-26 10-28 tablet by ity of 00:00: 00:00 mouth 2 [place] 00 :00 (two) Medical times Branch daily. warfarin 2 Yes Atrial 2mg Take 1 Uni vers mg tablet 4-08 flutter, tablet by i ty of 00:00: unspecified mouth [place] 00 type every Medical evening. Branch Take 1 tablet by mouth 7 days a week. warfarin 2 2020-0 Yes [id number] 2mg Take 1 Un chong mg tablet 4-08 tablet by ity o f 00:00: mouth [place] 00 every Medical evening. Branch Take 1 tablet by mouth 7 days a week. warfarin 2 2020- Yes [id number] 2mg Take 1 Un chong mg tablet 4-08 tablet by ity o f 00:00: mouth [place] 00 every Medical evening. Branch Take 1 tablet by mouth 7 days a week. warfarin 2 2020-0 Yes [id number] 2mg Take 1 Un chong mg tablet 4-08 tablet by ity o f 00:00: mouth [place] 00 every Medical evening. Branch Take 1 tablet by mouth 7 days a week. warfarin 2 2020-0 Yes [id number] 2mg Take 1 Un chong mg tablet 4-08 tablet by ity o f 00:00: mouth [place] 00 every Medical evening. Branch Take 1 tablet by mouth 7 days a week. warfarin 2 2020-0 Yes [id number] 2mg Take 1 Un chong mg tablet 4-08 tablet by ity o f 00:00: mouth [place] 00 every Medical evening. Branch Take 1 tablet by mouth 7 days a week. warfarin 2 2020-0 2020- No [id number] 2mg Take 1 U nivers mg tablet 4-08 09-20 tablet by ity of 00:00: 00:00 mouth [place] 00 :00 every Medical evening. Branch Take 1 tablet by mouth 7 days a week. sotaloL 80 2019- Yes 80mg Take 1 Unive rs mg tablet 1-17 tablet by ity o f 00:00: mouth 2 (two) Medical times Branch daily. atorvastati 2019-04 Yes Mixed 40mg Take 1 Uni vers n 40 mg 1-17 hyperlipide tablet by ity of tablet 00:00: darion mouth at [place] 00 bedtime. Medical Branch gabapentin Yes Take by Uni vers 300 mg 4-21 mouth ity of capsule 00:00: daily. [place] [facility] Branch HYDROcodone 2016- Yes Univer s -acetaminop 4-21 ity of hen 10-325 00:00: [place] mg tablet 00 Medical Branch lidocaine 5 2016- Yes Univer s % (700 4-21 ity of mg/patch) 00:00: [place] patch Medical Branch zolpidem 10 2016- Yes Univer s mg tablet 4-21 ity of 00:00: [place] Medical Branch gabapentin 2016- Yes Take by Uni vers 300 mg 4-21 mouth ity of capsule 00:00: daily. [place] Medical Branch HYDROcodone Yes Univer s -acetaminop 4-21 ity of hen 10-325 00:00: [place] mg tablet 00 Medical Branch lidocaine 5 2016- Yes Univer s % (700 4-21 ity of mg/patch) 00:00: [place] patch 00 Medical Branch zolpidem 10 2017-0 Yes Univer s mg tablet 4-21 ity of 00:00: Medical Branch gabapentin 2017-0 Yes Take by Uni vers 300 mg 4-21 mouth ity of capsule 00:00: daily. Medical Branch HYDROcodone 2017-0 Yes Univer s -acetaminop 4-21 ity of hen 10-325 00:00: [place] mg tablet 00 Medical Branch lidocaine 5 2017-0 Yes Univer s % (700 4-21 ity of mg/patch) 00:00: [place] patch Medical Branch zolpidem 10 2017-0 Yes Univer s mg tablet 4-21 ity of 00:00: Medical Branch gabapentin 2017-0 Yes Take by Uni vers 300 mg 4-21 mouth ity of capsule 00:00: daily. Medical Branch HYDROcodone 2017-0 Yes Univer s -acetaminop 4-21 ity of hen 10-325 00:00: [place] mg tablet Medical Branch lidocaine 5 2017-0 Yes Univer s % (700 4-21 ity of mg/patch) 00:00: [place] patch Medical Branch zolpidem 10 2017-0 Yes Univer s mg tablet 4-21 ity of 00:00: [place] Medical Branch gabapentin 2017-0 Yes Take by Uni vers 300 mg 4-21 mouth ity of capsule 00:00: daily. Medical Branch HYDROcodone 2017-0 Yes Univer s -acetaminop 4-21 ity of hen 10-325 00:00: [place] mg tablet Medical Branch lidocaine 5 2017-0 Yes Univer s % (700 4-21 ity of mg/patch) 00:00: [place] patch Medical Branch zolpidem 10 2017-0 Yes Univer s mg tablet 4-21 ity of 00:00: [place] [facility] gabapentin 2017-0 Yes Take by Uni vers 300 mg 4-21 mouth ity of capsule 00:00: daily. [place] [facility] HYDROcodone 2017-0 Yes Univer s -acetaminop 4-21 ity of hen 10-325 00:00: [place] mg tablet 00 Medical Branch lidocaine 5 2017-0 Yes Univer s % (700 4-21 ity of mg/patch) 00:00: [place] patch Medical [facility] zolpidem 10 2017-0 Yes Univer s mg tablet 4-21 ity of 00:00: [place] 00 [facility] Branch gabapentin 2017-0 Yes Take by Uni vers 300 mg 4-21 mouth ity of capsule 00:00: daily. Medical Branch HYDROcodone 2017-0 Yes Univer s -acetaminop 4-21 ity of hen 10-325 00:00: [place] mg tablet 00 Medical Branch lidocaine 5 2017-0 Yes Univer s % (700 4-21 ity of mg/patch) 00:00: [place] patch 00 Medical Branch gabapentin 2017-0 Yes Take by Uni vers 300 mg 4-21 mouth ity of capsule 00:00: daily. Medical Branch lidocaine 5 2017-0 Yes Univer s % (700 4-21 ity of mg/patch) 00:00: [place] patch [facility] gabapentin 2017-0 Yes Take by Uni vers 300 mg 4-21 mouth ity of capsule 00:00: daily. Medical Branch lidocaine 5 2017-0 Yes Univer s % (700 4-21 ity of mg/patch) 00:00: [place] patch Medical Branch gabapentin 2017-0 Yes Take by Uni vers 300 mg 4-21 mouth ity of capsule 00:00: daily. Medical Branch lidocaine 5 2017-0 Yes Univer s % (700 4-21 ity of mg/patch) 00:00: [place] patch 00 Medical Branch gabapentin 2017-0 Yes Take by Uni vers 300 mg 4-21 mouth ity of capsule 00:00: daily. Medical Branch lidocaine 5 2017-0 Yes Univer s % (700 4-21 ity of mg/patch) 00:00: [place] patch 00 Medical Branch gabapentin 2017-0 Yes Take by Uni vers 300 mg 4-21 mouth ity of capsule 00:00: daily. [place] [facility] lidocaine 5 2017-0 Yes Univer s % (700 4-21 ity of mg/patch) 00:00: [place] patch 00 Medical Branch zolpidem 10 2017-0 Yes Univer s mg tablet 4-21 ity of 00:00: Medical Branch zolpidem 10 2016-0 1- No Unive rs mg tablet 4-21 10-28 ity of 00:00: 00:00 [place] 00 :00 [facility] Branch HYDROcodone 2017-0 2020- No Unive rs -acetaminop 4-21 10-28 ity of hen 10-325 00:00: 00:00 [place] mg tablet 00 :00 Medical Branch pantoprazol 2017-0 Yes Univer s e 40 mg EC 4-14 ity of tablet 00:00: [place] [facility] pantoprazol 2017-0 Yes Univer s e 40 mg EC 4-14 ity of tablet 00:00: [place] [facility] pantoprazol 2017-0 Yes Univer s e 40 mg EC 4-14 ity of tablet 00:00: [place] [facility] pantoprazol 2017-0 Yes Univer s e 40 mg EC 4-14 ity of tablet 00:00: [place] [facility] pantoprazol 2017-0 Yes Univer s e 40 mg EC 4-14 ity of tablet 00:00: [place] [facility] pantoprazol 2017-0 Yes Univer s e 40 mg EC 4-14 ity of tablet 00:00: [place] [facility] pantoprazol 2017-0 Yes Univer s e 40 mg EC 4-14 ity of tablet 00:00: [place] [facility] pantoprazol 2017-0 Yes Univer s e 40 mg EC 4-14 ity of tablet 00:00: [place] [facility] pantoprazol 2017-0 Yes Univer s e 40 mg EC 4-14 ity of tablet 00:00: [place] [facility] pantoprazol 2017-0 Yes Univer s e 40 mg EC 4-14 ity of tablet 00:00: [place] [facility] pantoprazol 2017-0 Yes Univer s e 40 mg EC 4-14 ity of tablet 00:00: [place] [facility] pantoprazol 2017-0 Yes Univer s e 40 mg EC 4-14 ity of tablet 00:00: [place] 00 [facility] aspirin 81 2015-04 Yes 81mg Take 1 Unive rs mg chewable 0-26 tablet by ity of tablet 00:00: mouth [place] 00 daily. Medical Branch ferrous 2015-04 Yes 325mg Take 1 Univers sulfate 325 0-26 tablet by ity of mg (65 mg 00:00: mouth 3 [place] iron) 00 (three) Medical tablet times Branch daily with meals. aspirin 81 2015-04 Yes 81mg Take 1 Unive rs mg chewable 0-26 tablet by ity of tablet 00:00: mouth [place] 00 daily. Medical Branch ferrous 2015-04 Yes 325mg Take 1 Univers sulfate 325 0-26 tablet by ity of mg (65 mg 00:00: mouth 3 [place] iron) 00 (three) Medical tablet times Branch daily with meals. aspirin 81 2015-04 Yes 81mg Take 1 Unive rs mg chewable 0-26 tablet by ity of tablet 00:00: mouth [place] 00 daily. Medical Branch ferrous 2015-04 Yes 325mg Take 1 Univers sulfate 325 0-26 tablet by ity of mg (65 mg 00:00: mouth 3 [place] iron) 00 (three) Medical tablet times Branch daily with meals. aspirin 81 2015-04 Yes 81mg Take 1 Unive rs mg chewable 0-26 tablet by ity of tablet 00:00: mouth [place] 00 daily. Medical Branch ferrous 2015-04 Yes 325mg Take 1 Univers sulfate 325 0-26 tablet by ity of mg (65 mg 00:00: mouth 3 [place] iron) 00 (three) Medical tablet times Branch daily with meals. aspirin 81 2015-04 Yes 81mg Take 1 Unive rs mg chewable 0-26 tablet by ity of tablet 00:00: mouth [place] 00 daily. Medical Branch ferrous 2015-04 Yes 325mg Take 1 Univers sulfate 325 0-26 tablet by ity of mg (65 mg 00:00: mouth 3 [place] iron) 00 (three) Medical tablet times Branch daily with meals. aspirin 81 2015-04 Yes 81mg Take 1 Unive rs mg chewable 0-26 tablet by ity of tablet 00:00: mouth [place] 00 daily. Medical Branch ferrous 2015-04 Yes 325mg Take 1 Univers sulfate 325 0-26 tablet by ity of mg (65 mg 00:00: mouth 3 [place] iron) 00 (three) Medical tablet times Branch daily with meals. aspirin 81 2015-04 Yes 81mg Take 1 Unive rs mg chewable 0-26 tablet by ity of tablet 00:00: mouth [place] 00 daily. Medical Branch ferrous 2015-04 Yes 325mg Take 1 Univers sulfate 325 0-26 tablet by ity of mg (65 mg 00:00: mouth 3 [place] iron) 00 (three) Medical tablet times Branch daily with meals. aspirin 81 2015-04 Yes 81mg Take 1 Unive rs mg chewable 0-26 tablet by ity of tablet 00:00: mouth [place] 00 daily. Medical Branch aspirin 81 2015-04 Yes 81mg Take 1 Unive rs mg chewable 0-26 tablet by ity of tablet 00:00: mouth 00 daily. Medical Branch aspirin 81 2015-04 Yes 81mg Take 1 Unive rs mg chewable 0-26 tablet by ity of tablet 00:00: mouth 00 daily. Medical Branch aspirin 81 2015-04 Yes 81mg Take 1 Unive rs mg chewable 0-26 tablet by ity of tablet 00:00: mouth 00 daily. Medical Branch aspirin 81 2015-04 Yes 81mg Take 1 Unive rs mg chewable 0-26 tablet by ity of tablet 00:00: mouth 00 daily. Medical Branch ferrous 2015-04- No 325mg Take 1 Univer s sulfate 325 0-26 10-28 tablet by it y of mg (65 mg 00:00: 00:00 [place] iron) 00 :00 (three) Medical tablet times Branch daily with meals. NITROGLYCER Yes 1 Tab SL Un chong IN 0.4 MG 1-16 Q5MIN PRN ity o f SL SUBL 00:00: [place] 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 2006-0 Yes 1 Tab SL Un chong IN 0.4 MG 1-16 Q5MIN PRN ity o f SL SUBL 00:00: [place] 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 2006-0 Yes 1 Tab SL Un chong IN 0.4 MG 1-16 Q5MIN PRN ity o f SL SUBL 00:00: [place] 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 2006-0 Yes 1 Tab SL Un chong IN 0.4 MG 1-16 Q5MIN PRN ity o f SL SUBL 00:00: [place] 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 2007-0 Yes 1 Tab SL Un chong IN 0.4 MG 1-16 Q5MIN PRN ity o f SL SUBL 00:00: [place] 00 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 2006-0 Yes 1 Tab SL Un chong IN 0.4 MG 1-16 Q5MIN PRN ity o f SL SUBL 00:00: [place] 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 2006-0 Yes 1 Tab SL Un chong IN 0.4 MG 1-16 Q5MIN PRN ity o f SL SUBL 00:00: [place] 00 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 2006-0 2020- No 1 Tab SL U nivers IN 0.4 MG 1-16 10-28 Q5MIN PRN ity of SL SUBL 00:00: 00:00 [place] 00 :00 [facility] Vital Signs Vital Name Observation Time Observation Value Comments Source Systolic blood 2021-02-09 17:00:00 112 mm[facility]Hg[facility] Diastolic blood 2021-02-09 17:00:00 67 mm[Hg] [facility] Heart rate 2021-02-09 17:00:00 78 /min [facility] Respiratory rate 2021-02-09 17:00:00 28 /min [facility] Oxygen saturation in 2021-02-09 17:00:00 72 /min [facility] Arterial blood by [facility] Pulse oximetry [place] Body temperature 2021-02-09 16:31:00 35.61 Allie [facility] Body height 2021-02-09 10:00:00 160 cm [facility] Body weight 2021-02-09 10:00:00 48.49 kg [facility] BMI 2021-02-09 10:00:00 18.94 kg/m2 [facility] Procedures Procedure Date / Time Performing Clinician Source Performed ASSIGNMENT OF BENEFITS 2021-02-15 14:42:35 Doctor Unassigned, Un [facility] [place] [facility] MAGNESIUM 2021-02-09 10:11:00 Wally [facility] BASIC METABOLIC PANEL 2021-02-09 10:11[facility] (NA, K, CL, CO2, GLUCOSE, Medica l Branch BUN, CREATININE, CA) PROTHROMBIN TIME / INR 2021-02-09 10:11:00 Jennifer Lo [facility] PROTHROMBIN TIME / INR 2021-02-08 09:28:00 Yadira Ga [facility] MAGNESIUM 2021-02-08 09:27:00 sabino [facility] BASIC METABOLIC PANEL 2021-02-08 09:27:[facility] (NA, K, CL, CO2, GLUCOSE, Medica l Branch BUN, CREATININE, CA) N-TERMINAL PRO-BNP 2021-02-08 09:27:00 [place], [facility] FERRITIN SERUM 2021-02-07 20:45:00 Wally [facility] IRON 2021-02-07 20:45:00 Wally [facility] TOTAL IRON BINDING 2021-02-07 20:45:00 Wally [facility] MAGNESIUM 2021-02-07 09:33:00 Wally [facility] BASIC METABOLIC PANEL 2021-02-07 09:33:00 Wally [facility] (NA, K, CL, CO2, GLUCOSE, Medica l Branch BUN, CREATININE, CA) CBC WITHOUT DIFF 2021-02-07 09:33:00 Wally [facility] PROTHROMBIN TIME / INR 2021-02-07 09:33:00 Wally [facility] N-TERMINAL PRO-BNP 2021-02-07 09:33:00 Wally [facility] MAGNESIUM 2021-02-06 10:12:00 Wally [facility] BASIC METABOLIC PANEL 2021-02-06 10:12:00 Wally [facility] (NA, K, CL, CO2, GLUCOSE, Medica l Branch BUN, CREATININE, CA) PROTHROMBIN TIME / INR 2021-02-06 10:12:00 Jennifer Lo [facility] MAGNESIUM 2021-02-05 16:00:00 Wally [facility] BASIC METABOLIC PANEL 2021-02-05 16:00:00 Wally [facility] (NA, K, CL, CO2, GLUCOSE, Medica l Branch BUN, CREATININE, CA) CBC WITHOUT DIFF 2021-02-05 15:59:00 Wally [facility] PROTHROMBIN TIME / INR 2021-02-05 15:59:00 Wally [facility] COVID-19 (MOLECULAR 2021-02-05 10:56:00 [facility] [place] TESTING Medical Branch NUCLEIC ACID AMPLIFICATION) LAB ONLY COVID 2021-02-05 10:56:00 Wilber Flowers [facility] INTERPRETATION [facility] ABDOMEN PELVIS W 2021-02-05 07:11:10 Wilber Flowers [facility] CONTRAST [facility] MRSA / MSSA SCREEN BY 2021-02-05 06:39:00 Wilber Flowers [facility] (ID NOW RAPID 2021-02-05 03:51:[address] [facility] [place] [facility] TEST[facility]) Medical Branch LAB ONLY COVID 2021-02-05 03:51:00 [facility] XR CHEST 1 VW 2021-02-05 02:16:33 [facility] LIPASE 2021-02-05 02:10:00 [facility] MAGNESIUM 2021-02-05 02:10:00 [facility] TROPONIN I 2021-02-05 02:10:00 [facility] COMP. METABOLIC PANEL 2021-02-05 02:10:00 Singer [facility] ([id number]) [facility] CBC WITH DIFF 2021-02-05 02:10:00 [facility] PROTHROMBIN TIME / INR 2021-02-05 02:10:00 [facility] N-TERMINAL PRO-BNP 2021-02-05 02:10:00 Jamie Deng [facility] HB ECG ROUTINE & RHYTHM 2021-02-05 01:58:06 Singer [facility] STRIP [facility] ASSIGNMENT OF BENEFITS 2021-01-02 16:35:43 Doctor Unassigned, Un [facility] [place] [facility] Plan of Care Planned Activity Planned Date Details Comments Source Future Scheduled 2021-03-29 Depression screening Uni [facility] Test 00:00:00 (procedure) [code = Medical Branch 490157089] Future Scheduled 2020-12-14 INFLUENZA VACCINE [facility] Test 00:00:00 (Season Ended) [code = [facility] INFLUENZA VACCINE (Season Ended)] Future Scheduled 2020-10-29 Screening for [facility] Test 00:00:00 malignant neoplasm of Medica l Branch breast (procedure) [code = 255793237] Future Scheduled 2018 Medicare Annual [facility] Test 00:00:00 Wellness Visit Medical [facility] h (procedure) [code = 038547599444321] Future Scheduled 2018 Screening for [facility] Test 00:00:00 osteoporosis Medical Branch (procedure) [code = 375934393] Future Scheduled 2018 PNEUMOCOCCAL VACCINES Un [facility] Test 00:00:00 65+ (1 of 1 - PPSV23) Medica l Branch [code = PNEUMOCOCCAL VACCINES 65+ (1 of 1 - PPSV23)] Future Scheduled 2017-02-05 Screening for occult Uni [facility] Test 00:00:00 blood in feces Medical [facility] h (procedure) [code = 349623210] Future Scheduled 2017-02-05 Screening for [facility] Test 00:00:00 malignant neoplasm of Medica l Branch colon (procedure) [code = 030721104] Future Scheduled 2003 Stool DNA-based [facility] Test 00:00:00 colorectal cancer Medical Br anch screening (procedure) [code = 642169747788469] Future Scheduled [address] [facility] Test 00:00:00 sigmoidoscopy Medical Branch (procedure) [code = 38646746] Future Scheduled 2003 Screening for [facility] Test 00:00:00 malignant neoplasm of Medica l Branch colon (procedure) [code = 395009499] Future Scheduled 2003 Zoster Recombinant Unive [facility] [place] [facility] Test 00:00:00 Vaccine (SHINGRIX) (1 Medica l Branch of 2) [code = Zoster Recombinant Vaccine (SHINGRIX) (1 of 2)] Future Scheduled 1972 DTaP,Tdap,and Td Univers [facility] Test 00:00:00 Vaccines (1 - Tdap) Medical Branch [code = DTaP,Tdap,and Td Vaccines (1 - Tdap)] Future Scheduled 1971 [facility] (procedure) [code = Medical Branch 393671382] Future Scheduled 1969 SARS-CoV-2 (COVID-19) [facility] [place] Test 00:00:00 Vaccine (1) [code = Medical Branch SARS-CoV-2 (COVID-19) Vaccine (1)] Encounters Start End Encounter Admission Attending Care Care Encounter Source Date/Time Date/Time Type Type Clinicians Facility Department ID 2021-05-26 2021-05-26 Outpatient R [facility] [id number] Univers 10:20:00 10:20:00 [place] [id number] ity o [facility] 2021-05-26 2021-05-26 Outpatient R [facility] [id number] Univers 10:20:00 10:20:00 CATRINAJUAN tylery o [facility] 2021-02-15 2021-02-15 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, Andre Lab Main [facility] 1.2.8 40.114 [id number] Univers 09:47:39 10:02:39 Visit [place] Dan [id number] ity of [place] [id number] [phone] Hi dical NAL 353 [facility] 2021-02-15 2021-02-15 Outpatient R [facility] [id number] Univers 09:45:00 09:45:00 [id number] ity of [facility] 2021-02-15 2021-02-15 Outpatient R [facility] [id number] Univers 09:45:00 09:45:00 [place] perez o [facility] 2021-02-15 2021-02-15 Orders Doctor JOHANN 1.2.840.114 [id number] Univers 00:00:00 00:00:00 Only Unassigned, MIKE [id number] ity of [place] [facility] [id number] Babak as [phone] [address] 2021-02-15 2021-02-15 Telephone [facility] [id number] Univers 00:00:00 00:00:00 [place] ARANDA [id number] [id number] [phone] Me dical NAL 059 Branch [facility] 2021-02-10 2021-02-10 Transition ALESIA Gamez [id number] Univers 00:00:00 00:00:00 of Care Georgie SAMANIEGO [id number] it y of [id number] [phone] [facility] 403 Branch 2021-02-04 2021-02-09 Inpatient X WALLY [facility] BERENICE [id number] Univers 20:57:00 13:26:00 JENNIFER ity of [facility] 2021-02-04 2021-02-09 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 Andre Osei Lab Main [facility] 1.2.8 40.114 [id number] Univers 11:35:12 11:50:12 Visit [place] Dan [id number] ity [place] [id number] essdeacon [phone] Hi dical nal 353 [facility] 2021-01-02 2021-01-02 Outpatient R [facility] [id number] Univers 11:45:00 11:45:00 [id number] ity of [facility] 2021-01-02 2021-01-02 [facility] [id number] Univers 11:45:00 11:45:00 [place] perez o f [facility] 2021-01-02 2021-01-02 Orders Doctor JOHANN 1.2.840.114 [id number] Univers 00:00:00 00:00:00 Only Unassigned, MIKE [id number] ity of [place] [facility] [id number] Babak as [phone] [facility] 009 Branch 2021-01-02 2021-01-02 Telephone [facility] [id number] Univers 00:00:00 00:00:00 [place] [id number] ity of [id number] [phone] [place] [id number] [facility] 2021-01-02 2021-01-02 Refill [facility] 1.2.840.114 [id number] Univers 00:00:00 00:00:00 [place] [id number] ity of [id number] Profess[place] [phone] [address] 2020-12-07 2020-12-07 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, Adc Lab Main [facility] 1.2.8 40.114 [id number] Univers 08:05:37 08:20:37 Visit [place] [id number] ity of [id number] [phone] [facility] 353 [facility] 2020-12-07 2020-12-07 Outpatient [facility] [id number] Univers 08:00:00 08:00:00 [id number] ity of [facility] 2020-12-07 2020-12-07 [facility] [id number] Univers 08:00:00 08:00:00 ROGERZAHEER ana o [facility] 2020-12-07 2020-12-07 Telephone [facility] [id number] Univers 00:00:00 00:00:00 Catrinairiszaheer Aranda [id number] ity [id number] [phone] [address] 2020-11-23 2020-11-23 Outpatient [facility] [id number] Univers 13:37:45 23:59:00 [place] perez o f [facility] 2020-11-23 2020-11-23 Outpatient [facility] [id number] Univers 14:00:00 14:00:00 [place] [id number] ity o [facility] 2020-11-14 2020-11-14 Outpatient R ALETHA, [facility] [id number] Univers 13:40:00 13:40:00 CATRINAIRISZAHEER [id number] ity o [facility] 2020-11-14 2020-11-14 Outpatient R ALETHA, [facility] [id number] Univers 13:40:00 13:40:00 [place] perez o [facility] 2020-10-12 2020-10-12 Outpatient R [facility] [id number] Univers 08:00:00 08:00:00 [id number] [facility] 2020-10-12 2020-10-12 Outpatient R ALETHA, [facility] [id number] Univers 08:00:00 08:00:00 [place] perez o [facility] 2020-09-27 2020-09-27 Outpatient R ALETHA, [facility] [id number] Univers 13:00:00 13:00:00 CATRINAIRISZAHEER [id number] y o [facility] 2020-09-27 2020-09-27 Outpatient R ALETHA, [facility] [id number] Univers 13:00:00 13:00:00 [place] perez o [facility] 2020-09-22 2020-09-22 Outpatient R [facility] [id number] Univers 09:30:00 09:30:00 [id number] [facility] 2020-09-22 2020-09-22 Outpatient R ALETHA, [facility] [id number] Univers 09:30:00 09:30:00 [place] perez o [facility] 2020-09-07 2020-09-07 Outpatient R [facility] [id number] Univers 08:45:00 08:45:00 [id number] [facility] 2020-09-07 2020-09-07 Outpatient R ALETHA, [facility] [id number] Univers 08:45:00 08:45:00 [place] perez o [facility] 2020-08-19 2020-08-19 Outpatient R [facility] [id number] Univers 08:45:00 08:45:00 [id number] [facility] 2020-08-19 2020-08-19 Outpatient R ALETHA [facility] [id number] Univers 08:45:00 08:45:00 [place] hayes [facility] 2020-08-15 2020-08-15 Outpatient [facility] [id number] Univers 10:45:00 10:45:00 [id number] [facility] 2020-08-15 2020-08-15 Outpatient R ALETHA, [facility] [id number] Univers 10:45:00 10:45:00 [place] jimenes [facility] 2020-08-08 2020-08-08 Outpatient R [facility] [id number] Univers 11:45:00 11:45:00 [id number] [facility] 2020-08-08 2020-08-08 Outpatient [facility] [id number] Univers 11:45:00 11:45:00 [place] hayes [facility] 2020-08-08 2020-08-08 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 2020-08-08 2020-08-08 Telephone [facility] [id number] 00:00:00 00:00:00 [place] Aranda [id number] [place] [id number] Professio [phone] nal 059 [facility] 2020-07-25 2020-07-25 Telephone [facility] [id number] 00:00:00 00:00:00 [place] [id number] [place] [id number] Professio [phone] nal 059 [facility] 2020-07-20 2020-07-20 Outpatient R [facility] [id number] [facility] 11:45:00 11:45:00 [id number] [facility] 2020-07-20 2020-07-20 Outpatient [facility] [id number] Univers 11:45:00 11:45:00 [place] perez o f [facility] 2020-07-20 2020-07-20 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 2020-07-20 2020-07-20 Telephone [facility] CENTER [id number] [id number] 00:00:00 00:00:00 Catrinajuan [place] 350.1.13.10 [place] 4.2.7.2.686 Professio [phone] nal 059 [facility] 2020-07-13 2020-07-13 Outpatient R [facility] [id number] -[id number] [facility] 10:15:00 10:15:00 [id number] [facility] 2020-07-13 2020-07-13 [facility] [id number] Univers 10:15:00 10:15:00 [place] perez o f [facility] 2020-07-13 2020-07-13 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 [facility] [place] 1.2.840.114 [id number] 09:23:20 09:38:20 Visit Lab Main [place] 350.1.13.10 [place] 4.2.7.2.686 Professio [phone] [address] 2020-07-13 2020-07-13 Telephone [facility] [id number] 00:00:00 00:00:00 Qiajuan [place] 350.1.13.10 [place] 4.2.7.2.686 Professio [phone] [address] 2020-06-19 2020-06-19 [facility] 1..[id number] 00:00:00 00:00:00 Qiairiszaheer [place] 350.1.13.10 [place] 4.2.7.2.686 Professio [phone] [address] 2020-06-17 2020-06-17 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 [facility] [place] 1..840.114 [id number] 09:22:55 09:37:55 Visit Lab Main [place] 350.1.13.10 [place] 4.2.7.2.686 Professio [phone] [address] 2020-06-17 2020-06-17 Outpatient R [facility] [id number] -[id number] Univers 09:30:00 09:30:00 [id number] ity [facility] 2020-06-17 2020-06-17 Outpatient [facility] [id number] Univers 09:30:00 09:30:00 [place] perez o f [facility] 2020-06-08 2020-06-08 Telephone [facility] ..[phone] 00:00:00 00:00:00 Catrinairiszaheer [place] 350.1.13.10 [place] 4.2.7.2.686 Professio [phone] 2020-06-07 2020-06-07 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 [facility] [place] 1.2.840.114 [id number] 08:57:47 09:12:47 Visit Lab Main [place] 350.1.13.10 [place] 4.2.7.2.686 Professio [phone] [address] 2020-06-07 2020-06-07 Outpatient R [facility] [id number] -[id number] Univers 09:00:00 09:00:00 [id number] [facility] 2020-06-07 2020-06-07 Outpatient R ALETHA [facility] [id number] Univers 09:00:00 09:00:00 [place] hayes [facility] 2020-05-23 2020-05-23 Outpatient R [facility] [id number] -[id number] Univers 09:15:00 09:15:00 [id number] [facility] 2020-05-23 2020-05-23 Outpatient R ALETHA [facility] [id number] Univers 09:15:00 09:15:00 [place] hayes [facility] 2020-05-16 2020-05-16 Outpatient R [facility] [id number] -[id number] Univers 11:30:00 11:30:00 [id number] [facility] 2020-05-16 2020-05-16 Outpatient R ALETHA [facility] [id number] Univers 11:30:00 11:30:00 [place] hayes [facility] 2020-05-16 2020-05-16 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, [facility] 1.2.840.114 [id number] 11:09:17 11:24:17 Visit Lab Main Yehuda 350.1.13.10 [place] 4.2.7.2.686 Professio [phone] [facility] 353 [facility] 2020-05-16 2020-05-16 Orders Doctor JOHANN 1.2.840.114 [id number] 00:00:00 00:00:00 Only Unassigned, MIKE 350.1.13.10 [place] [facility] 4.2.7.2.686 [id number] 009 2020-05-16 2020-05-16 Telephone Aletha [facility] 1..[id number] 00:00:00 00:00:00 [place] Aranda 350.1.13.10 [place] 4.2.7.2.686 Professio [phone] [facility] 059 [facility] 2020-05-11 2020-05-11 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 [facility] [place] 1.2.840.114 [id number] 09:25:07 09:40:07 Visit Lab Main [place] 350.1.13.10 [place] 4.2.7.2.686 Professio [phone] nal 353 [facility] 2020-05-11 2020-05-11 Outpatient R [facility] [id number] -[id number] [facility] 09:30:00 09:30:00 [id number] [facility] 2020-05-11 2020-05-11 [facility] [id number] Univers 09:30:00 09:30:00 SENDIL [facility] 2020-05-11 2020-05-11 Telephone [facility] [id number] [id number] 00:00:00 00:00:00 [place] Campton 350.1.13.10 [place] 4.2.7.2.686 Professio [phone] nal 059 [facility] 2020-05-11 2020-05-11 [facility]phone [facility] 1.2.147.364 [id number] 00:00:00 00:00:00 [place] 350.1.13.10 [place] 4.2.7.2.686 Professio [phone] [facility] 059 [facility] 2020-05-04 2020-05-04 [facility]phone [facility] 1.2.841.641 [id number] 00:00:00 00:00:00 Rogerzaheer [place] 350.1.13.10 [place] 4.2.7.2.686 Professio [phone] [facility] [address] [place] [address] 2020-05-03 2020-05-03 Outpatient R [facility] [id number] -[id number] [facility] 11:30:00 11:30:00 [id number] [facility] 2020-05-03 2020-05-03 Outpatient [facility] [id number] Univers 11:30:00 11:30:00 [place] perez o f [facility] 2020-05-03 2020-05-03 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 Andre Osei [facility] 1.2.840.114 [id number] 10:05:00 10:20:00 Visit Lab Main [place] 350.1.13.10 [place] 4.2.7.2.686 Professio [phone] nal 353 [facility] 2020-05-03 2020-05-03 Orders Doctor JOHANN 1.2.840.114 [id number] 00:00:00 00:00:00 Only Unassigned, MIKE 350.1.13.10 [facility] 4.2.7.2.686 [id number] 009 2020-04-27 2020-04-27 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 Andre Osei [facility] 1.2.840.114 [id number] 08:24:03 08:39:03 Visit Lab Main Yehuda 350.1.13.10 [place] 4.2.7.2.686 Professio [phone] [facility] 353 [facility] 2020-04-27 2020-04-27 Outpatient R [facility] [id number] -[id number] Univers 08:30:00 08:30:00 [id number] [facility] 2020-04-27 2020-04-27 Outpatient [facility] [id number] Univers 08:30:00 08:30:00 [place] perez o f [facility] 2020-04-27 2020-04-27 Telephone [facility] [id number] 00:00:00 00:00:00 [place] Aranda 350.1.13.10 [place] 4.2.7.2.[phone] 2020-04-20 2020-04-20 Refill [facility] 1.2.840.114 [id number] 00:00:00 00:00:00 [place] Cam[place] 350.1.13.10 [place] 4.2.7.2.[phone] 2020-04-01 2020-04-01 Outpatient R TIMBO [facility] [id number] Univers 10:15:00 10:15:00 NICK [id number] [facility] 2020-04-01 2020-04-01 Outpatient R TIMBO [facility] [id number] Univers 10:15:00 10:15:00 NICK [facility] 2020-03-29 2020-03-29 Office Aletha, [facility] 1.2.840.114 [id number] 14:32:40 15:25:41 Visit [place] Yehuda 350.1.13.10 Bhav[place] 4.2.7.2.686 [place] [phone] nal 059 [facility] 2020-03-29 2020-03-29 Outpatient R ALETHA, [facility] [id number] -[id number] Univers 14:40:00 14:40:00 [place] [id number] tylery o [facility] 2020-03-29 2020-03-29 Outpatient R ALETHA, [facility] [id number] Univers 14:40:00 14:40:00 CATRINAJUAN scotty o [facility] 2020-03-22 2020-03-22 Outpatient R [facility] [id number] -[id number] Univers 15:30:00 15:30:00 ity [facility] 2020-03-22 2020-03-22 Outpatient R ALETHA, [facility] [id number] Univers 15:30:00 15:30:00 [place] jimenes [facility] 2020-03-15 2020-03-15 Outpatient R [facility] [id number] -[id number] Univers 11:15:00 11:15:00 [facility] 2020-03-15 2020-03-15 Outpatient R ALETHA, [facility] [id number] Univers 11:15:00 11:15:00 [place] ana o [facility] 2020-02-24 2020-02-24 Outpatient R ALETHA, [facility] [id number] -[id number] Univers 08:40:00 08:40:00 [place] [id number] tylery o [facility] 2020-02-24 2020-02-24 Outpatient R ALETHA, [facility] [id number] Univers 08:40:00 08:40:00 ROGERZAHEER perez o [facility] 2020-02-17 2020-02-17 Outpatient R [facility] [id number] -[id number] Univers 09:15:00 09:15:00 ity [facility] 2020-02-17 2020-02-17 Outpatient R ALETHA, [facility] [id number] Univers 09:15:00 09:15:00 [place] perez o f [facility] 2020-01-11 2020-01-11 Outpatient R [facility] [id number] -[id number] Univers 12:45:00 12:45:00 [id number] ity of [facility] 2020-01-11 2020-01-11 Outpatient R ALETHA, [facility] [id number] Univers 12:45:00 12:45:00 [place] scotty o f [facility] 2019-12-17 2019-12-17 Outpatient R [facility] [id number] -[id number] Univers 11:00:00 11:00:00 ity of [facility] 2019-12-17 2019-12-17 Outpatient R ALETHA, [facility] [id number] Univers 11:00:00 11:00:00 [place] perez o abigail [facility] 2019-11-26 2019-11-26 Outpatient R [facility] [id number] -[id number] Univers 12:45:00 12:45:00 [id number] ity [facility] 2019-11-26 2019-11-26 Outpatient R ALETHA, [facility] [id number] Univers 12:45:00 12:45:00 [place] perez o [facility] 2019-10-30 2019-10-30 Outpatient R RADIOLOGY [facility] [id number] Univers 10:40:00 10:40:00 [id number] ity [facility] 2019-10-30 2019-10-30 Outpatient R RADIOLOGY [facility] [id number] Univers 00:00:00 00:00:00 ity of [facility] 2019-10-20 2019-10-20 Outpatient R [facility] [id number] -[id number] Univers 09:30:00 09:30:00 ity of [facility] 2019-10-20 2019-10-20 Outpatient R MCDERMOTTMUSAN [facility] [id number] Univers 09:30:00 09:30:00 ity of [facility] 2019-09-30 2019-09-30 Outpatient R [facility] [id number] -[id number] Univers 08:30:00 08:30:00 [id number] ity [facility] 2019-09-30 2019-09-30 Outpatient R ALETHA, [facility] [id number] Univers 08:30:00 08:30:00 [place] jimenes [facility] 2019-09-08 2019-09-08 Outpatient R ALETHA, [facility] [id number] -[id number] Univers 15:20:00 15:20:00 [place] [id number] ana [facility] 2019-09-08 2019-09-08 Outpatient R ALETHA, [facility] [id number] Univers 15:20:00 15:20:00 [place] perez [facility] 2019-09-03 2019-09-03 Outpatient R [facility] [id number] -[id number] Univers 09:00:00 09:00:00 [id number] [facility] 2019-09-03 2019-09-03 Outpatient R ALETHA, [facility] [id number] Univers 09:00:00 09:00:00 [place] perez [facility] 2019-07-24 2019-07-24 Outpatient R [facility] [id number] -[id number] Univers 11:45:00 11:45:00 [facility] 2019-07-24 2019-07-24 Outpatient R ALETHA, [facility] [id number] Univers 11:45:00 11:45:00 [place] perez [facility] 2019-06-22 2019-06-22 Outpatient R [facility] [id number] -[id number] Univers 13:30:00 13:30:00 [facility] 2019-06-22 2019-06-22 Outpatient R ALETHA, [facility] [id number] Univers 13:30:00 13:30:00 [facility] [facility] Test Description Test Time Test Comments Results Result Comments Source BASIC METABOLIC PANEL (NA, K, CL, CO2, GLUCOSE, BUN, 2021-01 11:54:47 CREATININE, CA) Test Item Value Reference Range Interpretation Comme nts NA (test code = 4437579669) 132 mmol/L 135-145 L K (test code = 2147870308) 4.2 mmol/L 3.5-5.0 CL (test code = 7051461646) 89 mmol/L 98-108 L CO2 TOTAL (test code = 2465138187) 37 mmol/L 23-31 H AGAP (test code = 4328949732) 2-16 BUN (test code = 4238891463) 31 mg/dL 7-23 H GLUCOSE (test code = 7867619003) 109 mg/dL 70-110 CREATININE (test code = 0.95 mg/dL 0.50-1.04 1766845672) CALCIUM (test code = 1429645021) 9.7 mg/dL 8.6-10.6 eGFR (test code = 7155870983) mL/min/1.73m2 ROBERT (test code = ROBERT) Association of Glomerular Filtration Rate (GFR) and Staging of Kidney Disease* + +-------- + ------+| GFR (mL/min/1.73 m2) ?| With Kidney Damage ?| ?Without Kidney Damage+ +-- + +| ?>90 ?| ?Stage one ?| ? Normal ?+ +------- + -------+| ?60-89 ?| ?Stage two ?| ? Decreased GFR ? + +-------- + ------+| ?30-59 ?| ?Stage three ?| ? Stage three ? + +-------- + ------+| ?15-29 ?| ?Stage four ? | ? Stage four ?+ +------- + -------+| ?<15 (or dialysis) ? ?| ?Stage five ? | ? Stage five ?+ +------- + -------+ *Each stage assumes the associated GFR level has been in effect for at least three months. ?Stages 1 to 5, with or without kidney disease, indicate chronic kidney disease. Notes: Determination of stages one and two (with eGFR >59mL/min/1.73 m2) requires estimation of kidney damage for at least three months as defined by structural or functional abnormalities of the kidney, manifested by either:Pathological abnormalities or Markers of kidney damage (including abnormalities in the composition of the blood or urine or abnormalities in imaging tests). Lab Interpretation (test code = Abnormal 92706-5) [facility]2021[facility]28 11:45:27 Test Item Value Reference Range Interpretation Comments MAGNESIUM (test code = 6408083992) 2.0 mg/dL 1.7-2.4 Lab Interpretation (test code = Normal 16448-0) [facility] CampusPROTHROMBIN TIME / [id number] 11:34:42 Test Item Value Reference Range Interpretation Comments PROTIME PATIENT (test See_Comment H [Auto mated message] code = 5964-2) The system wh ich generated this result transmitted ref erence range: 12.0 - 1 4.7 Seconds. The reference range was not used to int erpret this result as normal/abnormal . INR (test code = 6301-6) Nor mal INR <1.1; Warfarin Therap eutic range 2.0 to 3. 0 or 2.5 to 3.5, dep ending upon the indica tions. Lab Interpretation (test Abnormal code = 66121-2) [facility] CampusN-[facility]MINAL [id number] 12:01:34 Test Item Value Reference Range Interpretation Comments NT-proBNP (test code 1700 pg/mL See_Comment H [Autom ated = 7677493508) message] The system which generated this result transmitted reference range : <=125. The reference range was not used to interpret this result as normal/abnormal . ROBERT (test code = ROBERT) Biotin has been reported to cause a negative bias, interpret results relative to patient's use of biotin. Lab Interpretation Abnormal (test code = 56191-9) [facility]2021-10-27 11:56:11 Test Item Value Reference Range Interpretation Comments MAGNESIUM (test code = 1484625242) 1.5 mg/dL 1.7-2.4 L Lab Interpretation (test code = Abnormal 61923-4) [facility] CampusBAS[facility] METABOLIC PANEL (NA, K, CL, CO2, GLUCOSE, BUN, CREATININE, CA)2021-02-08 11:55:56 Test Item Value Reference Range Interpretation Comments NA (test code = 132 mmol/L 135-145 L 5506634737) K (test code = 4.2 mmol/L 3.5-5.0 1460401797) CL (test code = 91 mmol/L 98-108 L 0677998114) CO2 TOTAL (test code = 34 mmol/L 23-31 H 1166965561) AGAP (test code = 2-16 9043915221) BUN (test code = 30 mg/dL 7-23 H 4776015350) GLUCOSE (test code = 165 mg/dL 70-110 H 1830220222) CREATININE (test code = 1.05 mg/dL 0.50-1.04 H 5349413889) CALCIUM (test code = 9.9 mg/dL 8.6-10.6 0226233273) eGFR (test code = mL/min/1.73m2 7383817425) ROBERT (test code = ROBERT) Association of Glomerular Filtration Rate (GFR) and Staging of Kidney Disease* + --+ --+ ------+| GFR (mL/min/1.73 m2) ?| With Kidney Damage ?| ?Without Kidney Damage+ --------+ --------+ +| ?>90 ?| ?Stage one ?| ? Normal ?+ ---+ ---+ -------+| ?60-89 ?| ?Stage two ?| ? Decreased GFR ? + --+ --+ ------+| ?30-59 ?| ?Stage three ?| ? Stage three ? + --+ --+ ------+| ?15-29 ?| ?Stage four ? | ? Stage four ?+ ---+ ---+ -------+| ?<15 (or dialysis) ? ?| ?Stage five ? | ? Stage five ?+ ---+ ---+ -------+ *Each stage assumes the associated GFR level has been in effect for at least three months. ?Stages 1 to 5, with or without kidney disease, indicate chronic kidney disease. Notes: Determination of stages one and two (with eGFR >59mL/min/1.73 m2) requires estimation of kidney damage for at least three months as defined by structural or functional abnormalities of the kidney, manifested by either:Pathological abnormalities or Markers of kidney damage (including abnormalities in the composition of the blood or urine or abnormalities in imaging tests). Lab Interpretation Abnormal (test code = 37188-0) [facility] CampusPROTHROMBIN TIME / [id number] 11:44:10 Test Item Value Reference Range Interpretation Comments PROTIME PATIENT (test See_Comment H [Auto mated message] code = 5964-2) The system [employer] generated this result transmitted ref erence range: 12.0 - 1 4.7 Seconds. The reference range was not used to int erpret this result as normal/abnormal . INR (test code = 6301-6) Nor mal INR <1.1; Warfarin Therap eutic range 2.0 to 3. 0 or 2.5 to 3.5, dep ending upon the indica tions. Lab Interpretation (test Abnormal code = 99543-2) [facility] CampusFERRITIN [id number] 22:03:37 Test Item Value Reference Range Interpretation Comments FERRITIN (test code = 157.0 ng/mL 11.0-264.0 0024653221) ROBERT (test code = ROBERT) Biotin has been reported to cause a negative bias, interpret results relative to patient's use of biotin. Lab Interpretation (test Normal code = 32578-8) [facility] CampusTO[facility] IRON BINDING [id number] 21:36:54 Test Item Value Reference Range Interpretation Comments TIBC (test code = 1437753384) 340 ug/dL 250-410 % FE SAT (test code = 1035827226) 15 % 20-50 L Lab Interpretation (test code = Abnormal 84211-1) [facility] CampusIRON2021-10-26 21:27:49 Test Item Value Reference Range Interpretation Comments IRON (test code = 6454438172) 50 ug/dL 50-160 Lab Interpretation (test code = Normal 32173-0) [facility] METABOLIC PANEL (NA, K, CL, CO2, GLUCOSE, BUN, CREATININE, CA)2021-02-07 12:20:00 Test Item Value Reference Range Interpretation Comments NA (test code = 133 mmol/L 135-145 L 2029788709) K (test code = 4.3 mmol/L 3.5-5.0 5859171679) CL (test code = 94 mmol/L 98-108 L 5510185695) CO2 TOTAL (test code = 34 mmol/L 23-31 H 8352732562) AGAP (test code = 2-16 5040207029) BUN (test code = 29 mg/dL 7-23 H 0487853728) GLUCOSE (test code = 113 mg/dL 70-110 H 0810758185) CREATININE (test code = 0.94 mg/dL 0.50-1.04 4073016138) CALCIUM (test code = 10.0 mg/dL 8.6-10.6 9338459797) eGFR (test code = mL/min/1.73m2 3985396501) ROBERT (test code = ROBERT) Association of Glomerular Filtration Rate (GFR) and Staging of Kidney Disease* + --+ --+ ------+| GFR (mL/min/1.73 m2) ?| With Kidney Damage ?| ?Without Kidney Damage+ --------+ --------+ +| ?>90 ?| ?Stage one ?| ? Normal ?+ ---+ ---+ -------+| ?60-89 ?| ?Stage two ?| ? Decreased GFR ? + --+ --+ ------+| ?30-59 ?| ?Stage three ?| ? Stage three ? + --+ --+ ------+| ?15-29 ?| ?Stage four ? | ? Stage four ?+ ---+ ---+ -------+| ?<15 (or dialysis) ? ?| ?Stage five ? | ? Stage five ?+ ---+ ---+ -------+ *Each stage assumes the associated GFR level has been in effect for at least three months. ?Stages 1 to 5, with or without kidney disease, indicate chronic kidney disease. Notes: Determination of stages one and two (with eGFR >59mL/min/1.73 m2) requires estimation of kidney damage for at least three months as defined by structural or functional abnormalities of the kidney, manifested by either:Pathological abnormalities or Markers of kidney damage (including abnormalities in the composition of the blood or urine or abnormalities in imaging tests). Lab Interpretation Abnormal (test code = 24273-7) [facility] CampusN-TERMINAL [id number] 11:47:15 Test Item Value Reference Range Interpretation Comments NT-proBNP (test code 1560 pg/mL See_Comment H [Autom ated = 7201138470) message] The system which generated this result transmitted reference range : <=125. The reference range was not used to interpret this result as normal/abnormal . ROBERT (test code = ROBERT) Biotin has been reported to cause a negative bias, interpret results relative to patient's use of biotin. Lab Interpretation Abnormal (test code = 82399-3) [facility] CampusMAGNESIUM2021-10-26 11:42:12 Test Item Value Reference Range Interpretation Comments MAGNESIUM (test code = 3317673735) 1.7 mg/dL 1.7-2.4 Lab Interpretation (test code = Normal 49554-3) [facility] CampusPROTHROMBIN TIME / [id number] 11:12:08 Test Item Value Reference Range Interpretation Comments PROTIME PATIENT (test See_Comment H [Auto mated message] code = 5964-2) The system [employer] generated this result transmitted ref erence range: 12.0 - 1 4.7 Seconds. The reference range was not used to int erpret this result as normal/abnormal . INR (test code = 6301-6) Nor mal INR <1.1; Warfarin Therap eutic range 2.0 to 3. 0 or 2.5 to 3.5, dep ending upon the indica tions. Lab Interpretation (test Abnormal code = 47220-8) [facility] CampusCBC WITHOUT [id number] 11:03:09 Test Item Value Reference Range Interpretation Comments WBC (test code = 6690-2) See_Comment [A utomated message] The system [employer] generated this result transmit bandar reference range : 4.30 - 11.10 10*3/?L. The reference range was not used to interpret this result as normal/abnormal . RBC (test code = 789-8) See_Comment L [Au tomated message] The system [employer] generated this result transmit bandar reference range : 3.93 - 5.25 10* 6/?L. The reference r tali was not used to interpret this result as normal/abnormal . HGB (test code = 718-7) 10.9 g/dL 11.6-15.0 L HCT (test code = 4544-3) 34.0 % 35.7-45.2 L MCH (test code = 785-6) 30.4 pg 25.9-32.8 MCV (test code = 787-2) 94.7 fL 80.6-95.5 MCHC (test code = 786-4) 32.1 g/dL 31.6-35.1 PLT (test code = 777-3) See_Comment [Au tomated message] The system [employer] generated this result transmit bandar reference range : 166 - 358 10*3/?L. The reference range was not used to interpret this result as normal/abnormal . MPV (test code = 10.6 fL 9.5-12.9 70408-4) RDW-CV (test code = 14.0 % 12.0-15.5 788-0) RDW-SD (test code = 48.5 fL 39.0-49.9 57645-7) NRBC x10^3 (test code = <0.01 See_Comment [Au tomated message] 5503291325) The system Is[employer]alk[employer] h generated this result transmit bandar reference range : 10*3/?L. The reference range was not used to interpret this result as normal/abnormal . NRBC/100 WBC (test code See_Comment [Au tomated message] = 9019085064) The system [employer] generated this result transmit bandar reference range : 0.0 - 10.0 /100 WBC s. The reference r tali was not used to interpret this result as normal/abnormal . IPF % (test code = 2674456454) Lab Interpretation (test Abnormal code = 62382-9) [facility] / [id number] 11:50:01 Test Item Value Reference Range Interpretation Comments PROTIME PATIENT (test See_Comment H [Auto mated message] code = 5964-2) The system [facility] generated this result transmitted ref erence range: 12.0 - 1 4.7 Seconds. The reference range was not used to int erpret this result as normal/abnormal . INR (test code = 6301-6) Nor mal INR <1.1; Warfarin Therap eutic range 2.0 to 3. 0 or 2.5 to 3.5, dep ending upon the indica tions. Lab Interpretation (test Abnormal code = 67508-3) [facility]20[facility]-25 11:25:39 Test Item Value Reference Range Interpretation Comments MAGNESIUM (test code = 4677829897) 1.7 mg/dL 1.7-2.4 Lab Interpretation (test code = Normal 56250-4) [facility] METABOLIC PANEL (NA, K, CL, CO2, GLUCOSE, BUN, CREATININE, CA)2021-02-06 11:25:19 Test Item Value Reference Range Interpretation Comments NA (test code = 136 mmol/L 135-145 6870340558) K (test code = 3.6 mmol/L 3.5-5.0 7889156017) CL (test code = 98 mmol/L 98-108 5216986407) CO2 TOTAL (test code = 36 mmol/L 23-31 H 6839456037) AGAP (test code = 2-16 7380684219) BUN (test code = 24 mg/dL 7-23 H 2459161451) GLUCOSE (test code = 101 mg/dL 70-110 7340646801) CREATININE (test code = 1.01 mg/dL 0.50-1.04 3419663822) CALCIUM (test code = 9.8 mg/dL 8.6-10.6 4034850618) eGFR (test code = mL/min/1.73m2 5488563829) ROBERT (test code = ROBERT) Association of Glomerular Filtration Rate (GFR) and Staging of Kidney Disease* + --+ --+ ------+| GFR (mL/min/1.73 m2) ?| With Kidney Damage ?| ?Without Kidney Damage+ --------+ --------+ +| ?>90 ?| ?Stage one ?| ? Normal ?+ ---+ ---+ -------+| ?60-89 ?| ?Stage two ?| ? Decreased GFR ? + --+ --+ ------+| ?30-59 ?| ?Stage three ?| ? Stage three ? + --+ --+ ------+| ?15-29 ?| ?Stage four ? | ? Stage four ?+ ---+ ---+ -------+| ?<15 (or dialysis) ? ?| ?Stage five ? | ? Stage five ?+ ---+ ---+ -------+ *Each stage assumes the associated GFR level has been in effect for at least three months. ?Stages 1 to 5, with or without kidney disease, indicate chronic kidney disease. Notes: Determination of stages one and two (with eGFR >59mL/min/1.73 m2) requires estimation of kidney damage for at least three months as defined by structural or functional abnormalities of the kidney, manifested by either:Pathological abnormalities or Markers of kidney damage (including abnormalities in the composition of the blood or urine or abnormalities in imaging tests). Lab Interpretation Abnormal (test code = 80476-6) [facility] / [id number] 17:29:39 Test Item Value Reference Range Interpretation Comments PROTIME PATIENT (test See_Comment H [Auto mated message] code = 5964-2) The system [employer] generated this result transmitted ref erence range: 12.0 - 1 4.7 Seconds. The reference range was not used to int erpret this result as normal/abnormal . INR (test code = 6301-6) [facility] Nor mal INR <1.1; Warfarin Therap eutic range 2.0 to 3. 0 or 2.5 to 3.5, dep ending upon the indica tions. Lab Interpretation (test Abnormal code = 10969-6) [facility] METABOLIC PANEL (NA, K, CL, CO2, GLUCOSE, BUN, CREATININE, CA)2021-02-05 16:50:13 Test Item Value Reference Range Interpretation Comments NA (test code = 137 mmol/L 135-145 4783199548) K (test code = 3.9 mmol/L 3.5-5.0 1779461882) CL (test code = 101 mmol/L 98-108 5144698053) CO2 TOTAL (test code = 37 mmol/L 23-31 H 1316774968) AGAP (test code = <1 2-16 L 2796775887) BUN (test code = 20 mg/dL 7-23 7332966859) GLUCOSE (test code = 89 mg/dL 70-110 6368602222) CREATININE (test code = 0.85 mg/dL 0.50-1.04 6938398045) CALCIUM (test code = 9.7 mg/dL 8.6-10.6 6765651445) eGFR (test code = mL/min/1.73m2 1953715588) ROBERT (test code = ROBERT) Association of Glomerular Filtration Rate (GFR) and Staging of Kidney Disease* + --+ --+ ------+| GFR (mL/min/1.73 m2) ?| With Kidney Damage ?| ?Without Kidney Damage+ --------+ --------+ +| ?>90 ?| ?Stage one ?| ? Normal ?+ ---+ ---+ -------+| ?60-89 ?| ?Stage two ?| ? Decreased GFR ? + --+ --+ ------+| ?30-59 ?| ?Stage three ?| ? Stage three ? + --+ --+ ------+| ?15-29 ?| ?Stage four ? | ? Stage four ?+ ---+ ---+ -------+| ?<15 (or dialysis) ? ?| ?Stage five ? | ? Stage five ?+ ---+ ---+ -------+ *Each stage assumes the associated GFR level has been in effect for at least three months. ?Stages 1 to 5, with or without kidney disease, indicate chronic kidney disease. Notes: Determination of stages one and two (with eGFR >59mL/min/1.73 m2) requires estimation of kidney damage for at least three months as defined by structural or functional abnormalities of the kidney, manifested by either:Pathological abnormalities or Markers of kidney damage (including abnormalities in the composition of the blood or urine or abnormalities in imaging tests). Lab Interpretation Abnormal (test code = 13827-9) [facility]2021-[facility]-24 16:45:11 Test Item Value Reference Range Interpretation Comments MAGNESIUM (test code = 7075329371) 1.8 mg/dL 1.7-2.4 Lab Interpretation (test code = Normal 47874-2) [facility] WITHOUT [id number] 16:19:28 Test Item Value Reference Range Interpretation Comments WBC (test code = 6690-2) See_Comment [A utomated message] The system [employer] generated this result transmit bandar reference range : 4.30 - 11.10 10*3/?L. The reference range was not used to interpret this result as normal/abnormal . RBC (test code = 789-8) See_Comment L [Au tomated message] The system [employer] generated this result transmit bandar reference range : 3.93 - 5.25 10* 6/?L. The reference r tali was not used to interpret this result as normal/abnormal . HGB (test code = 718-7) 9.6 g/dL 11.6-15.0 L HCT (test code = 4544-3) 30.6 % 35.7-45.2 L MCH (test code = 785-6) 30.5 pg 25.9-32.8 MCV (test code = 787-2) 97.1 fL 80.6-95.5 H MCHC (test code = 786-4) 31.4 g/dL 31.6-35.1 L PLT (test code = 777-3) See_Comment [Au tomated message] The system [employer] generated this result transmit bandar reference range : 166 - 358 10*3/?L. The reference range was not used to interpret this result as normal/abnormal . MPV (test code = 10.0 fL 9.5-12.9 73415-6) RDW-CV (test code = 14.6 % 12.0-15.5 788-0) RDW-SD (test code = 51.8 fL 39.0-49.9 H 78273-7) NRBC x10^3 (test code = <0.01 See_Comment [Au tomated message] 6856019125) The system [employer] generated this result transmit bandar reference range : 10*3/?L. The reference range was not used to interpret this result as normal/abnormal . NRBC/100 WBC (test code See_Comment [Au tomated message] = 0560554599) The system [employer] generated this result transmit bandar reference range : 0.0 - 10.0 /100 WBC s. The reference r tali was not used to interpret this result as normal/abnormal . IPF % (test code = 1844203510) Lab Interpretation (test Abnormal code = 26594-2) [facility] [id number] 02:55:44 Test Item Value Reference Interpretation Comments Range TROPONIN I (test 0.005 ng/mL See_Comment [Automated code = 0057698499) message] The system which generated this result transmitted reference range : <=0.034. The reference range was not used to interpret this result as normal/abnormal . ROBERT (test code = Reference (Normal) ROBERT) Range (defined by the 99th percentile reference limit): <= 0.034 ng/mL Note: Cardiac troponin begins to rise 3-4 hours after the onset of ischemia. Repeat in 4-6 hours if the sample was drawn within 3-4 hours of the onset of the symptom and found normal. Diagnosis of myocardial injury is made with acute changes in cTn concentrations with at least one serial sample above the 99th percentile upper reference limit (URL), taken together with the patient's clinical presentation. Biotin has been reported to cause a negative bias, interpret results relative to patient's use of biotin. Lab Interpretation Normal (test code = 84622-8) [facility]N-[facility]MINAL [id number] 02:52:43 Test Item Value Reference Range Interpretation Comments NT-proBNP (test code 1650 pg/mL See_Comment H [Autom ated = 5296498188) message] The system which generated this result transmitted reference range : <=125. The reference range was not used to interpret this result as normal/abnormal . ROBERT (test code = ROBERT) Biotin has been reported to cause a negative bias, interpret results relative to patient's use of biotin. Lab Interpretation Abnormal (test code = 69623-1) [facility]2021-[facility]-24 02:44:06 Test Item Value Reference Range Interpretation Comments MAGNESIUM (test code = 5692430244) 1.8 mg/dL 1.7-2.4 Lab Interpretation (test code = Normal 55969-0) [facility] CampusCOMP. METABOLIC PANEL (46623)2021-02-05 02:43:45 Test Item Value Reference Range Interpretation Comments NA (test code = 142 mmol/L 135-145 1220376243) K (test code = 3.6 mmol/L 3.5-5.0 8457029152) CL (test code = 103 mmol/L 98-108 6599056097) CO2 TOTAL (test code = 35 mmol/L 23-31 H 4751739969) AGAP (test code = 2-16 4752951721) BUN (test code = 22 mg/dL 7-23 3944198806) GLUCOSE (test code = 108 mg/dL 70-110 0450790148) CREATININE (test code = 0.83 mg/dL 0.50-1.04 0564211160) TOTAL BILI (test code = 0.4 mg/dL 0.1-1.9 5056061872) CALCIUM (test code = 10.3 mg/dL 8.6-10.6 8705933826) T PROTEIN (test code = 6.7 g/dL 6.3-8.2 6855712156) ALBUMIN (test code = 3.4 g/dL 3.5-5.0 L 7014775096) ALK PHOS (test code = 74 U/L 34-122 2172686136) ALTv (test code = 34 U/L 5-35 1742-6) AST(SGOT) (test code = 42 U/L 13-40 H 8364107523) eGFR (test code = mL/min/1.73m2 5949311574) ROBERT (test code = ROBERT) Association of Glomerular Filtration Rate (GFR) and Staging of Kidney Disease* + --+ --+ ------+| GFR (mL/min/1.73 m2) ?| With Kidney Damage ?| ?Without Kidney Damage+ --------+ --------+ +| ?>90 ?| ?Stage one ?| ? Normal ?+ ---+ ---+ -------+| ?60-89 ?| ?Stage two ?| ? Decreased GFR ? + --+ --+ ------+| ?30-59 ?| ?Stage three ?| ? Stage three ? + --+ --+ ------+| ?15-29 ?| ?Stage four ? | ? Stage four ?+ ---+ ---+ -------+| ?<15 (or dialysis) ? ?| ?Stage five ? | ? Stage five ?+ ---+ ---+ -------+ *Each stage assumes the associated GFR level has been in effect for at least three months. ?Stages 1 to 5, with or without kidney disease, indicate chronic kidney disease. Notes: Determination of stages one and two (with eGFR >59mL/min/1.73 m2) requires estimation of kidney damage for at least three months as defined by structural or functional abnormalities of the kidney, manifested by either:Pathological abnormalities or Markers of kidney damage (including abnormalities in the composition of the blood or urine or abnormalities in imaging tests). Lab Interpretation Abnormal (test code = 98849-7) [facility] CampusLIP[facility]2021-10-[facility] 02:43:45 Test Item Value Reference Range Interpretation Comments LIPASE (test code = 3527256529) 212 U/L 0-220 Lab Interpretation (test code = Normal 36431-7) [facility] CampusPROTHROM[facility] TIME / [id number] 02:36:53 Test Item Value Reference Range Interpretation Comments PROTIME PATIENT (test See_Comment H [Auto mated message] code = 5964-2) The system [employer] generated this result transmitted ref erence range: 12.0 - 1 4.7 Seconds. The reference range was not used to int erpret this result as normal/abnormal . INR (test code = 6301-6) [facility] Nor mal INR <1.1; Warfarin Therap eutic range 2.0 to 3. 0 or 2.5 to 3.5, dep ending upon the indica tions. Lab Interpretation (test Abnormal code = 38171-5) [facility] WITH [id number] 02:23:44 Test Item Value Reference Range Interpretation Comments WBC (test code = See_Comment [Automated 6690-2) message] The sy stem which generated this result transmitted reference range : 4.30 - 11.10 10*3/?L. The reference range was not used to interpret this result as normal/abnormal . RBC (test code = See_Comment L [Automated 789-8) message] The sy stem which generated this result transmitted reference range : 3.93 - 5.25 10*6/?L. The reference range was not used to interpret this result as normal/abnormal . HGB (test code = 10.6 g/dL 11.6-15.0 L 718-7) HCT (test code = 34.3 % 35.7-45.2 L 4544-3) MCV (test code = 96.9 fL 80.6-95.5 H 787-2) MCH (test code = 29.9 pg 25.9-32.8 785-6) MCHC (test code = 30.9 g/dL 31.6-35.1 L 786-4) RDW-SD (test code = 51.9 fL 39.0-49.9 H 82329-2) RDW-CV (test code = 14.4 % 12.0-15.5 788-0) PLT (test code = See_Comment [Automated 777-3) message] The sy stem which generated this result transmitted reference range : 166 - 358 10*3/ ?L. The reference r tali was not used to interpret this result as normal/abnormal . MPV (test code = 9.9 fL 9.5-12.9 29256-6) NRBC/100 WBC (test See_Comment [Automat ed code = 3521920896) message] The system which generated this result transmitted reference range : 0.0 - 10.0 /100 WBCs. The refer ence range was not u sed to interpret th is result as normal/abnormal . NRBC x10^3 (test code <0.01 See_Comment [Auto mated = 3048162175) message] The s ystem which generated this result transmitted reference range : 10*3/?L. The reference range was not used to interpret this result as normal/abnormal . GRAN MAT (NEUT) % 70.6 % (test code = 770-8) IMM GRAN % (test code 0.50 % = 4681082629) LYMPH % (test code = 15.7 % 736-9) MONO % (test code = 11.0 % 5905-5) EOS % (test code = 1.3 % 713-8) BASO % (test code = 0.9 % 706-2) GRAN MAT x10^3(ANC) 5.63 10*3/uL 1.88-7.09 (test code = 5258581881) IMM GRAN x10^3 (test 0.04 10*3/uL 0.00-0.06 code = 0453222336) LYMPH x10^3 (test code 1.25 10*3/uL 1.32-3.29 L = 731-0) MONO x10^3 (test code 0.88 10*3/uL 0.33-0.92 = 742-7) EOS x10^3 (test code = 0.10 10*3/uL 0.03-0.39 711-2) BASO x10^3 (test code 0.07 10*3/uL 0.01-0.07 = 704-7) Lab Interpretation Abnormal (test code = 22041-5) [facility]"
== END 2021-01-22 11:45 | disposition home or self-care (01) | DRG 291 ==
LOC: ER 18:49 → ERHOLD 21:55 → 4TH 01-19 08:30 → OBSVTOIN 01-19 12:39
PROVIDERS: ADMIT Hospitalist; ATTEND Hospitalist
PROC: 30233N1 Transfusion of Nonautologous Red Blood Cells into Peripheral Vein, Percutaneous Approach (ICD-10-PCS; principal; 2021-01-19)
DX: I11.0 Hypertensive heart disease with heart failure (principal); I50.31 Acute diastolic (congestive) heart failure; N39.0 Urinary tract infection, site not specified; D61.818 Other pancytopenia; I48.0 Paroxysmal atrial fibrillation; D63.8 Anemia in other chronic diseases classified elsewhere; E87.6 Hypokalemia; E78.5 Hyperlipidemia, unspecified; Z95.2 Presence of prosthetic heart valve; Z79.01 Long term (current) use of anticoagulants; Z20.822 Contact with and (suspected) exposure to COVID-19
CPT/HCPCS: 36415; 36430; 71045; 74177; 80048; 80053; 80061; 80076; 81003; 81015; 82150; 82550; 82553; 82565; 82607; 82728; 82746; 82947; 83540; 83605; 83690; 83735; 83880; 84100; 84132; 84145; 84439; 84443; 84466; 84484; 85014; 85018; 85025; 85610; 85730; 86140; 86850; 86900; 86901; 87040; 93005; 94760; 96374; 96375; 99285; G0378; J1170; J2405; J2930; J3475; J3480; J7030; J7050; P9016; Q2035; Q9967; U0003

== ENCOUNTER 2021-01-24 16:40 | Inpatient (IN) | payer OTHER ==
[2021-01-24 18:00] LABS: Protime INR 3.55
[2021-01-24 18:02] LABS: Absolute Lymphocytes (CBC) 0.3 K/uL (0.7-4.9); Basophils % 0.5 % (0-1.3); Hematocrit 44.7 % (36.0-45.0); Lymphocytes % 2.3 % (15.3-44.8); MPV 9.8 fL (7.6-11.3); RBC Red Blood Cell Count 4.75 M/uL (3.86-4.86)
[2021-01-24 18:17] LABS: Bilirubin Direct 0.4 mg/dL (0-0.2); Bilirubin Total 1.2 mg/dL (0.2-1.0); Potassium 3.6 mmol/L (3.5-5.1); Protein, Total 7.1 g/dL (6.4-8.2); Troponin (Emerg Dept Use Only) 0.02 ng/mL (0.0-0.045)
[2021-01-24] MEDS ORDERED: dilTIAZem HCL 25 MG/5 ML VIAL IV ONE ×2 (18:19→19:16)
--- NOTE | 2021-01-24 18:24 | ER ---
Nurse's Notes [facility] Name: Michelle Saavedra Age: 65 yrs Sex: Female : 1955 Arrival Date: 01/24/2021 Time: 16:43 Bed 13 Private MD: Saurabh Dobson E Diagnosis: Persistent atrial fibrillation-With rapid ventricular response Presentation: 01/24 17:01 Chief complaint: Patient's son or daughter states: per pts daughter, pt has been acting ss 'spacey' since this morning. pt c/o cp since yesterday. upon assessment pt aox3. pt was +COVID a few days ago and was admitted then released two days ago. pt was also diagnosed with a UTI. pt reports that she had this 9/10 CP since admission to hospital. pt has a hx of afib and has fluctuating pulse, 30s-160s. EKG completed. afib RVR. Coronavirus screen: Client denies travel out of the [place] in the last 14 days. Client presents with at least one sign or symptom that may indicate coronavirus-19. Standard/surgical mask placed on the client. Provider contacted for isolation considerations. Client reports previous positive COVID test result. Ebola Screen: No symptoms or risks identified at this time. Initial Sepsis Screen:. Initial Sepsis Screen: Does the patient meet any 2 criteria? No. Patient's initial sepsis screen is negative. Does the patient have a suspected source of infection? Yes: Other: +covid. Risk Assessment: Do you want to hurt yourself or someone else? Patient reports no desire to harm self or others. Onset of symptoms is unknown. 17:01 Method Of Arrival: Wheelchair ss 17:01 Acuity: JAKUB 3 ss 18:53 Acuity: JAKUB 2 iw Triage Assessment: 17:31 General: Appears in no apparent distress. comfortable, slender, Behavior is calm, tr6 cooperative, appropriate for age. Pain: Complains of pain in midsternal CP since 2 days ago, prior to being discharged. EENT: No deficits noted. Neuro: Level of Consciousness is awake, alert, obeys commands, Oriented to person, place, time, situation, Appropriate for age Speech is normal. Cardiovascular: Reports chest pain, fatigue, Rhythm is pt has a history of afib. is on coumadin at home. Respiratory: Airway is patent Respiratory effort is even, unlabored. GI: No deficits noted. : No signs and/or symptoms were reported regarding the genitourinary system. Derm: No deficits noted. Musculoskeletal: No deficits noted. Historical: - Allergies: 17:06 Fentanyl; itching; ss 17:06 Morphine; ss - Home Meds: 17:06 aspirin 81 mg Oral tab 1 tab once daily [Active]; atorvastatin 20 mg Oral tab 1 tab ss once daily [Active]; Coumadin 2.5 mg Oral tab 1 tab once daily [Active]; gabapentin Oral [Active]; [place] 7.5-325 mg Oral tab 1 tab every 4 hours [Active]; pantoprazole Oral [Active]; sotalol 80 mg Oral tab 2 times per day [Active]; - PMHx: 17:06 mechanical heart valve; Hypertension; Hyperlipidemia; GERD; Back pain; Atrial Fib; ss - PSHx: 17:06 Aortic valve replacement; ss - Immunization history:: Adult Immunizations up to date, Client reports having NOT received the Covid vaccine. - Social history:: Smoking status: Patient denies any tobacco usage or history of. Screenin:25 Abuse screen: Denies threats or abuse. Denies injuries from another. Nutritional tr6 screening: No deficits noted. Tuberculosis screening: No symptoms or risk factors identified. Fall Risk Fall in past 12 months (25 points). Assessment: 17:26 Reassessment: daughter no longer at bedside. pts daughter states she will return later. tr6 Vital Signs: 17:01 BP 104 / 68; Pulse 91; Resp 18; Temp 98.3(O); Pulse Ox 95% on R/A; Height 5 ft. 3 in. ss (160.02 cm); 17:50 BP 102 / 75; Pulse 169; Resp 23; Pulse Ox 97% on R/A; ap3 19:00 BP 98 / 67; Pulse 115; Resp 26; Pulse Ox 94% on R/A; bs2 19:10 BP 101 / 73; Pulse 129; Resp 22; Pulse Ox 92% ; bs2 19:20 BP 103 / 59; Pulse 117; Resp 26; Pulse Ox 93% on R/A; bs2 19:30 BP 96 / 58; Pulse 108; Resp 25; Pulse Ox 92% on R/A; bs2 19:40 BP 81 / 53; Pulse 112; Resp 24; Pulse Ox 94% on R/A; bs2 19:50 BP 93 / 54; Pulse 111; Resp 20; Pulse Ox 96% on R/A; bs2 20:00 BP 92 / 59; Pulse 118; Resp 26; Pulse Ox 96% on R/A; bs2 20:10 BP 84 / 52; Pulse 123; Resp 26; Pulse Ox 96% on R/A; bs2 ED Course: 16:43 Patient arrived in ED. mr 16:44 Saurabh Dobson MD is Private Physician. mr 17:06 Triage completed. ss 17:17 Jesús Ravi MD is Attending Physician. kdr 17:22 Cristy Cam RN is Primary Nurse. es2 17:25 Resting quietly. Awaiting ED provider evaluation. tr6 17:25 Patient has correct armband on for positive identification. Placed in gown. Bed in low tr6 position. Call light in reach. Side rails up X2. agribusiness professor on. Pulse ox on. NIBP on. Door closed. Noise minimized. Visitors limited. Lights dimmed. Moved to private room. Warm blanket given. 17:25 No provider procedures requiring assistance completed. tr6 17:33 Patient placed in an exam room. EKG completed in triage. Results shown to MD. tr6 17:40 Inserted saline lock: 22 gauge in right antecubital area, using aseptic technique. tr6 Blood collected. 18:04 XRAY Chest (1 view) In Process Unspecified. EDMS 18:23 Kam Bartlett DO is Hospitalizing Provider. kdr 18:42 Attending Physician role handed off by Jesús Ravi MD milton 18:42 Gab Del Real MD is Attending Physician. milton 20:28 Patient admitted, IV remains in place. bs2 Administered Medications: 17:57 Drug: Diltiazem 10 mg Route: IVP; Site: right antecubital; tr6 19:45 Follow up: Response: No adverse reaction bs2 18:57 Drug: Diltiazem 15 mg Route: IVP; Site: right antecubital; es2 19:45 Follow up: Response: No adverse reaction bs2 19:30 Drug: Cardizem (diltiazem) 5 mg/hr Route: IV; Rate: calculated rate; Site: right bs2 forearm; 20:55 Follow up: IV Status: Infusion continued upon admission bs2 19:40 Drug: NS 0.9% 1000 ml Route: IV; Rate: 75 ml/hr; Site: right forearm; bs2 20:55 Follow up: IV Status: Infusion continued upon admission bs2 19:40 Drug: NS 0.9% 500 ml Route: IV; Rate: bolus; Site: right forearm; bs2 20:22 Follow up: IV Status: Completed infusion; IV Intake: 500ml bs2 19:43 CANCELLED (Other Intervention Used): Potassium Chloride 20 mEq IV at calculated rate la1 once; administer over 1-2 hours 20:15 Drug: NS 0.9% 500 ml Route: IV; Rate: bolus; Site: right forearm; bs2 20:55 Follow up: IV Status: Completed infusion; IV Intake: 500ml bs2 Intake: 20:22 IV: 500ml; Total: 500ml. bs2 20:55 IV: 500ml; Total: 1000ml. bs2 Outcome: 18:24 Decision to Hospitalize by Provider. kdr 20:54 Admitted to ICU accompanied by nurse, via stretcher, room 4, on monitor, with chart. bs2 20:54 Condition: stable 20:54 Instructed on the need for admit. 21:31 Patient left the ED. bb Signatures: Dispatcher [employer] EDGab Coffey MD MD cha Rittger, Kevin, MD MD kdr Rivera, Kathrin mr PandeyRadha RN Johnna Roberts RN RN iw Smirch, Shelby, RN RN ss Prokisch, Amanda, RN RN ap3 Naomy Montoya RN RN tr6 Precious Cam RN RN bs2 Cristy Cam RN RN solange2 Farshad Roman [employer] Corrections: (The following items were deleted from the chart) 17:07 17:01 BP 143 / 124; Pulse 91bpm; Resp 18bpm; Pulse Ox 95% RA; Temp 98.3F Oral; Height 5 ss ft. 3 in.; ss 17:08 17:01 BP 104 / 68; Pulse 91bpm; Resp 18bpm; Pulse Ox 95% RA; Temp 98.3F Oral; Height 5 ss ft. 3 in.; ss 17:25 17:01 Chief complaint: Patient's son or daughter states: has been acting 'spacey' since tr6 this morning. pt c/o cp since yesterday. pt was +COVID a few days ago and was admitted and released two days ago. pt was also diagnosed with a UTI. ss
--- NOTE | 2021-01-24 18:24 | EDPHYS ---
Physician Documentation [facility] Name: Michelle Saavedra Age: 65 yrs Sex: Female : 1955 Arrival Date: 01/24/2021 Time: 16:43 Bed 13 Private MD: Saurabh Dobson E ED Physician Gab Del Real HPI: 01/25 18:03 This 65 yrs old Female presents to ER via Wheelchair with complaints of kdr Decreased Appetite, Confused. 17:16 Patient's daughter relates that patient has been "spacey" since this morning. The kdr patient had also complained of some chest pain briefly yesterday. Today the patient appears to be alert and oriented x3 on initial presentation. Patient was diagnosed with Covid a few days ago. At that time she was admitted briefly and then released about 2 days prior to today. Patient is also had a urinary tract infection recently. Patient continues to complain of intermittent chest discomfort since her original admission. Finally, she has a history of A. fib and her pulse has been erratic with a rate between 50 and 160s . Onset: The symptoms/episode began/occurred 2 day(s) ago. Severity of symptoms: At their worst the symptoms were mild just prior to arrival, moderate in the emergency department the symptoms are unchanged. The patient has not experienced similar symptoms in the past. The patient has been recently seen by a physician: As noted above. Historical: - Allergies: 01/24 17:06 Fentanyl; itching; ss 17:06 Morphine; ss - Home Meds: 17:06 aspirin 81 mg Oral tab 1 tab once daily [Active]; atorvastatin 20 mg Oral tab 1 tab ss once daily [Active]; Coumadin 2.5 mg Oral tab 1 tab once daily [Active]; gabapentin Oral [Active]; [place] 7.5-325 mg Oral tab 1 tab every 4 hours [Active]; pantoprazole Oral [Active]; sotalol 80 mg Oral tab 2 times per day [Active]; - PMHx: 17:06 mechanical heart valve; Hypertension; Hyperlipidemia; GERD; Back pain; Atrial Fib; ss - PSHx: 17:06 Aortic valve replacement; ss - Immunization history:: Adult Immunizations up to date, Client reports having NOT received the Covid vaccine. - Social history:: Smoking status: Patient denies any tobacco usage or history of. ROS: 01/25 17:16 Constitutional: Negative for fever, chills, and weight loss, Eyes: Negative for injury, kdr pain, redness, and discharge, Neck: Negative for injury, pain, and swelling, Respiratory: Negative for shortness of breath, cough, wheezing, and pleuritic chest pain, Abdomen/GI: Negative for abdominal pain, nausea, vomiting, diarrhea, and constipation, Back: Negative for injury and pain, : Negative for injury, bleeding, discharge, and swelling, MS/Extremity: Negative for injury and deformity, Skin: Negative for injury, rash, and discoloration, Psych: Negative for depression, anxiety, suicide ideation, homicidal ideation, and hallucinations, Allergy/Immunology: Negative for hives, rash, and allergies, Endocrine: Negative for neck swelling, polydipsia, polyuria, polyphagia, and marked weight changes, Hematologic/Lymphatic: Negative for swollen nodes, abnormal bleeding, and unusual bruising. Cardiovascular: Positive for chest pain, Negative for edema, orthopnea, palpitations. Neuro: Positive for altered mental status, hearing loss. Exam: 18:02 Constitutional: This is a well developed, well nourished patient who is awake, alert, kdr and in no acute distress. Head/Face: Normocephalic, atraumatic. Eyes: Pupils equal round and reactive to light, extra-ocular motions intact. Lids and lashes normal. Conjunctiva and sclera are non-icteric and not injected. Cornea within normal limits. Periorbital areas with no swelling, redness, or edema. Neck: Trachea midline, no thyromegaly or masses palpated, and no cervical lymphadenopathy. Supple, full range of motion without nuchal rigidity, or vertebral point tenderness. No Meningismus. Chest/axilla: Normal chest wall appearance and motion. Nontender with no deformity. No lesions are appreciated. Cardiovascular: Regular rate and rhythm with a normal S1 and S2. No gallops, murmurs, or rubs. Normal PMI, no JVD. No pulse deficits. Respiratory: Lungs have equal breath sounds bilaterally, clear to auscultation and percussion. No rales, rhonchi or wheezes noted. No increased work of breathing, no retractions or nasal flaring. Abdomen/GI: Soft, non-tender, with normal bowel sounds. No distension or tympany. No guarding or rebound. No evidence of tenderness throughout. Back: No spinal tenderness. No costovertebral tenderness. Full range of motion. Skin: Warm, dry with normal turgor. Normal color with no rashes, no lesions, and no evidence of cellulitis. MS/ Extremity: Pulses equal, no cyanosis. Neurovascular intact. Full, normal range of motion. Psych: Awake, alert, with orientation to person, place and time. Behavior, mood, and affect are within normal limits. 18:02 Neuro: Orientation: to person, Not oriented to time, situation, Cranial nerves: no acute changes, Motor: moves all fours, Sensation: no obvious gross deficits. Vital Signs: 01/24 17:01 BP 104 / 68; Pulse 91; Resp 18; Temp 98.3(O); Pulse Ox 95% on R/A; Height 5 ft. 3 in. ss (160.02 cm); 17:50 BP 102 / 75; Pulse 169; Resp 23; Pulse Ox 97% on R/A; ap3 19:00 BP 98 / 67; Pulse 115; Resp 26; Pulse Ox 94% on R/A; bs2 19:10 BP 101 / 73; Pulse 129; Resp 22; Pulse Ox 92% ; bs2 19:20 BP 103 / 59; Pulse 117; Resp 26; Pulse Ox 93% on R/A; bs2 19:30 BP 96 / 58; Pulse 108; Resp 25; Pulse Ox 92% on R/A; bs2 19:40 BP 81 / 53; Pulse 112; Resp 24; Pulse Ox 94% on R/A; bs2 19:50 BP 93 / 54; Pulse 111; Resp 20; Pulse Ox 96% on R/A; bs2 20:00 BP 92 / 59; Pulse 118; Resp 26; Pulse Ox 96% on R/A; bs2 20:10 BP 84 / 52; Pulse 123; Resp 26; Pulse Ox 96% on R/A; bs2 MDM: 18:24 Patient medically screened. kdr 01/25 18:02 Data reviewed: vital signs, nurses notes, lab test result(s), radiologic studies. kdr Counseling: I had a detailed discussion with the patient and/or guardian regarding: the historical points, exam findings, and any diagnostic results supporting the discharge/admit diagnosis, lab results, radiology results, the need for outpatient follow up. 01/24 17:18 Order name: Basic Metabolic Panel; Complete Time: 18:23 kdr 01/24 17:18 Order name: CBC with Diff; Complete Time: 18:42 kdr 01/24 17:18 Order name: LFT's; Complete Time: 18:23 kdr 01/24 17:18 Order name: Magnesium; Complete Time: 18:23 kdr 01/24 17:18 Order name: NT PRO-BNP; Complete Time: 18:23 kdr 01/24 17:18 Order name: PT-INR; Complete Time: 18:23 kdr 01/24 17:18 Order name: Troponin (emerg Dept Use Only); Complete Time: 18:23 kdr 01/24 17:18 Order name: XRAY Chest (1 view); Complete Time: 18:29 kdr 01/24 18:23 Order name: Urine Microscopic Only la1 01/24 18:39 Order name: CBC Smear Scan; Complete Time: 18:42 EDMS 01/24 18:43 Order name: TSH milton 01/24 19:56 Order name: CRP la1 01/24 21:06 Order name: C-Reactive Protein EDMS 01/24 17:11 Order name: EKG - Nurse/Tech; Complete Time: 17:23 tw5 01/24 17:18 Order name: EKG; Complete Time: 17:18 kdr 01/24 17:18 Order name: Cardiac monitoring; Complete Time: 17:23 kdr 01/24 17:18 Order name: IV Saline Lock; Complete Time: 17:23 kdr 01/24 17:18 Order name: Labs collected and sent; Complete Time: 17:30 kdr 01/24 17:18 Order name: O2 Per Protocol; Complete Time: 17:23 kdr 01/24 17:18 Order name: O2 Sat Monitoring; Complete Time: 17:23 kdr 01/24 18:23 Order name: Urine Dipstick-Ancillary (obtain specimen) la1 Administered Medications: 01/24 17:57 Drug: Diltiazem 10 mg Route: IVP; Site: right antecubital; tr6 19:45 Follow up: Response: No adverse reaction bs2 18:57 Drug: Diltiazem 15 mg Route: IVP; Site: right antecubital; es2 19:45 Follow up: Response: No adverse reaction bs2 19:30 Drug: Cardizem (diltiazem) 5 mg/hr Route: IV; Rate: calculated rate; Site: right bs2 forearm; 20:55 Follow up: IV Status: Infusion continued upon admission bs2 19:40 Drug: NS 0.9% 1000 ml Route: IV; Rate: 75 ml/hr; Site: right forearm; bs2 20:55 Follow up: IV Status: Infusion continued upon admission bs2 19:40 Drug: NS 0.9% 500 ml Route: IV; Rate: bolus; Site: right forearm; bs2 20:22 Follow up: IV Status: Completed infusion; IV Intake: 500ml bs2 19:43 CANCELLED (Other Intervention Used): Potassium Chloride 20 mEq IV at calculated rate la1 once; administer over 1-2 hours 20:15 Drug: NS 0.9% 500 ml Route: IV; Rate: bolus; Site: right forearm; bs2 20:55 Follow up: IV Status: Completed infusion; IV Intake: 500ml bs2 Disposition Summary: 01/24/21 18:24 Hospitalization Ordered Hospitalization Status: Inpatient Admission kdr Provider: Kam Bartlett kdr Condition: Fair kdr Problem: an acute exacerbation kdr Symptoms: have improved kdr Bed/Room Type: Standard kdr Location: Intensive Care Unit(01/24/21 20:07) mw Room Assignment: 4-(01/24/21 20:44) mw Diagnosis - Persistent atrial fibrillation - With rapid ventricular response kdr Forms: - Medication Reconciliation Form kdr - SBAR form kdr Signatures: Dispatcher [employer] EDMS Albertina Watkins RN RN mw Anderson, Corey, MD MD cha Rittger, Kevin, MD MD kdr Ballard, Brenda, RN RN bb Smirch, Shelby, RN RN ss Attema, Lee, HEAMNT-C PRIMARY CARE NURSE PRACTITIONER-Cla1 Naomy Montoya RN RN tr6 Precious Cam RN RN bs2 Cristy Cam RN RN es2 Naomy Blanton tw5 Corrections: (The following items were deleted from the chart) 19:43 19:42 Potassium Chloride 20 mEq IV at calculated rate once; administer over 1-2 hours la1 ordered. la1 20:07 18:24 Telemetry/MedSurg (Inpatient) kdr 20:07 18:24 kdr 20:44 20:07 7- mw mw
--- NOTE | 2021-01-24 18:28 | RAD REPORT ---
EXAM DESCRIPTION: RAD - Chest Single View - 01/24/2021 6:04 pm CLINICAL HISTORY: ABDOMINAL DISTENTION COMPARISON: Chest Single View dated 01/18/2021; Chest Single View dated 08/10/2020; Chest Single View dated 04/01/2020; Chest Single View dated 03/11/2020; Abdomen Pelvis W Contrast dated 01/18/2021 FINDINGS: Lines: None. Lungs: No evidence of edema or pneumonia. Prominence of the interstitial markings in left mid lung ar e similar to prior. This may be reflection of radiographic technique. Pleural: No significant pleural effusions or pneumothorax. Cardiac: Cardiomegaly. Sternotomy. Atherosclerosis. Bones: No acute fractures. Thoracolumbar curvature. Other: IMPRESSION: No acute cardiopulmonary disease.
[2021-01-24 18:39] LABS: Blood Morphology Comment NOT SEEN (NOT SEEN); Platelet Estimate ADEQ; White Blood Cell Scan OK (OK)
[2021-01-24] MEDS ORDERED: DILTIAZEM 125 MG in NS 125 ML IVPB SCH (19:00)
[2021-01-24] MEDS ORDERED: DILTIAZEM INJ 125 MG in NA CHLORIDE 0.9% 100 ML IV SCH ×3 (19:00→22:13)
[2021-01-24] MEDS ORDERED: DILTIAZEM INJ 125 MG in NA CHLORIDE 0.9% 100 ML IV PRN (19:00)
[2021-01-24] MEDS ORDERED: NA CHLORIDE 0.9% 100 ML ONE (19:30)
[2021-01-24] MEDS ORDERED: NA CHLORIDE 0.9% 1,000 ML ONE ×2 (19:47→20:38)
--- NOTE | 2021-01-24 20:14 | P.HP ---
Certification for Inpatient Patient admitted to: Inpatient With expected LOS: >2 Midnights Patient will require the following post-hospital care: None Practitioner: I am a practitioner with admitting privileges, knowledge of patient current condition, hospital course, and medical plan of care. Services: Services provided to patient in accordance with Admission requirements found in Title 42 Section 412.3 of the Code of Federal Regulations Patient History Date of Service: 01/24/21 Primary Care Provider: Dr. Dobson Reason for admission: A. fib RVR History of Present Illness: 65-year-old female with history of atrial fibrillation on chronic anticoagulation therapy with warfarin, aortic valve replacement, chronic [place] stolic congestive heart failure, hypertension, hyperlipidemia who recently tested positive for Covid 01/19/2021. Family reports patient has not been eating well and has not been acting herself for the past couple of days, patient also complained of some intermittent chest pain and palpitations. Upon arrival to the emergency department patient was noted to be tachycardic with A. fib RVR rate around 160. Patient was given Cardizem IV push followed by initiation of Cardizem drip, rate has improved currently with rate around 120 A. fib blood pressure around 105 systolic. Other labs unremarkable, chest x-ray without any acute changes or sign of Covid pneumonia, saturations within normal limits at this time. ED provider is to admit for further evaluation and management of A. fib RVR. Allergies morphine Allergy (Intermediate, Verified 04/27/20 23:29) panic ATTACK; shaking fentanyl Allergy (Verified 04/27/20 23:29) Itching Home Medications: Zolpidem Tartrate [Ambien*] 10 mg PO BEDTIME 07/07/13 Atorvastatin Calcium 40 mg PO BEDTIME 04/30/17 Hydrocodone Bit/Acetaminophen [Hydrocodon-Acetaminoph 7.5-325] 7.5 mg PO TID PRN 03/02/19 Lidocaine 4% Patch [Lidoderm 5% Patch*] 2 patch TOP BEDTIME PRN 03/02/19 Gabapentin [Neurontin*] 300 mg PO TID 11/09/19 Alendronate Sodium 35 mg PO EVERY 7TH DAY 03/11/20 Ascorbic Acid [Vitamin C] 500 mg PO BEDTIME 03/11/20 Diclofenac Sodium 1 coreen TOP DAILY PRN 03/11/20 Multivit-Min/Iron/Folic Acid/K [Adults Multivitamin Tablet] 1 each PO BEDTIME 03/11/20 Pantoprazole [Protonix Tab*] 40 mg PO BIDAC 03/11/20 Sotalol HCl [Betapace*] 80 mg PO BID 03/11/20 Warfarin Sodium [Jantoven] 2 mg PO DAILY 01/20/21 Diphenox/Atropine [Lomotil*] 1 tab PO Q12HP #14 tab 01/22/21 Warfarin Sodium [Coumadin*] 2 mg PO DAILY 5 PM #30 tab 01/22/21 predniSONE [Deltasone] 20 mg PO DAILY #5 tab 01/22/21 - Past Medical/Surgical History Diabetic: No -: chronic back pain -: depression -: GERD -: mechanical aortic valve -: Atrial fibrillation on warfarin -: aortic valve replacement -: cardioversion -: tubal ligation Psychosocial/ Personal History: Patient lives at home with her children - Family History Brother -: Heart disease, Cancer Notes: heart attack Mother -: Heart disease, Diabetes Notes: of heart attack Father -: Heart disease Notes: of heart attack Sister -: Heart disease, Diabetes, Cancer Notes: sisters x2 - DM. sister x1 - heart attack. sister- lung cancer - Social History Smoking Status: Never smoker Alcohol use: No CD- Drugs: No Caffeine use: No Place of Residence: Home Review of Systems 10-point ROS is otherwise unremarkable General: Chills, Weakness, Malaise Cardiovascular: Chest Pain, Palpitations Physical Examination - Physical Exam General: Alert, In no apparent distress, Oriented x3 HEENT: Atraumatic, PERRLA, Other (Mucous membranes dry), EOMI, Sclerae nonicteric Neck: Supple, 2+ carotid pulse no bruit, No LAD, Without JVD or thyroid abnormality Respiratory: Clear to auscultation bilaterally, Normal air movement Cardiovascular: Regular rate/rhythm, Normal S1 S2 Capillary refill: <2 Seconds Gastrointestinal: Normal bowel sounds, No tenderness Musculoskeletal: No tenderness Integumentary: No rashes Neurological: Normal speech, Normal strength at 5/5 x4 extr, Normal tone, Normal affect - Studies Laboratory Data (last 24 hrs) 01/24/21 17:37: PT 41.3 H, INR 3.55 01/24/21 17:37: WBC 11.20 H D, Hgb 14.3, Hct 44.7 D, Plt Count 173 01/24/21 17:37: Sodium 137, Potassium 3.6, BUN 15, Creatinine 0.80, Glucose 93, Magnesium 2.0, Total Bilirubin 1.2 H, AST 35, ALT 36, Alkaline Phosphatase 90 Assessment and Plan - Plan Assessment: A. fib RVR with history of A. fib and mechanical aortic valve replacement on chronic anticoagulation therapy COVID-19 positive Chronic diastolic congestive heart failure Hypertension Hyperlipidemia Plan: A. fib RVR with history of A. fib and mechanical aortic valve replacement on chronic anticoagulation therapy: Patient was given Cardizem IV push followed by Cardizem drip in the emergency department, rate currently better controlled with a rate of around 120 blood pressure around 100 systolic. We will continue gentle hydration with IV fluids and Cardizem drip throughout the evening. Case was discussed with cardiology, patient may require cardioversion for any change in stability. Continue Coumadin, monitor INR daily. COVID-19 positive: Saturation stable this time will continue with daily room air saturations, oral supplements. Patient not hypoxic, no need for steroids at this time. Will trend CRP/ferritin. Chronic diastolic congestive heart failure: Previous echocardiogram from last year with normal ejection fraction, no complications with mechanical valve. We will continue monitor closely will provide fluids as patient does appear dry and has been dehydrated/without appetite. Hypertension: Blood pressure soft at this time we will hold medications. Hyperlipidemia: Obtain and continue home medication. DVT PPX: Continue warfarin 2.5 mg p.o. daily Code status: Full code Discharge Plan: Home Plan to discharge in: 48 Hours - Advance Directives Does patient have a Living Will: No Does patient have a Durable POA for Healthcare: No - Code Status/Comfort Care Code Status Assessed: Yes (Full code) Critical Care: No Time Spent Managing Pts Care (In Minutes): 55
[2021-01-24 20:18] LABS: Thyroid Stimulating Hormone 0.903 uIU/mL (0.360-3.740)
[2021-01-24] MEDS ORDERED: ONDANSETRON 4 MG/2 ML VIAL IV PRN (22:13)
[2021-01-24] MEDS: ASCORBIC ACID 500 MG TABLET PO SCH (22:13)
[2021-01-24] MEDS ORDERED: NA CHLORIDE 0.9% 500 ML IV ONE (22:28)
[2021-01-24] MEDS ORDERED: NA CHLORIDE 0.9% 500 ML ONE (22:48)
[2021-01-25 01:38] LABS: Urine Appearance CLEAR (Clear); Urine Bilirubin NEGATIVE (Negative); Urine Blood TRACE (Negative); Urine Color YELLOW (Yellow); Urine Glucose NEGATIVE (Negative); Urine Protein NEGATIVE (Negative)
[2021-01-25 01:54] LABS: Urine Microscopic Reflex ORDER UMIC
[2021-01-25 02:19] LABS: Urine Bacteria <20 /HPF (<20); Urine Urothelial Cells <5 /HPF (NONE SEEN)
[2021-01-25 05:26] LABS: Absolute Lymphocytes (CBC) 0.4 K/uL (0.7-4.9); Basophils % 0.3 % (0-1.3); Hematocrit 38.4 % (36.0-45.0); Lymphocytes % 4.8 % (15.3-44.8); MPV 9.8 fL (7.6-11.3)
[2021-01-25 05:27] LABS: Protime INR 3.52
[2021-01-25 05:51] LABS: ALT/SGPT 29 U/L (12-78); AST/SGOT 32 U/L (15-37); Albumin 2.5 g/dL (3.4-5.0); Alkaline Phosphatase 75 U/L (45-117); BUN Blood Urea Nitrogen 13 mg/dL (7-18); Bicarbonate 23 mmol/L (21-32); Bilirubin Total 0.8 mg/dL (0.2-1.0); Glucose Level 68 mg/dL (74-106); HDL Cholesterol 60 mg/dL (40-60); LDL Cholesterol, Calculated 62 (<130); Magnesium 1.8 mg/dL (1.8-2.4); Potassium 3.3 mmol/L (3.5-5.1); Protein, Total 6.2 g/dL (6.4-8.2); Sodium Level 140 mmol/L (136-145)
--- NOTE | 2021-01-25 05:58 | P.PN ---
Subjective Date of Service: 01/25/21 Primary Care Provider: Dr. Dobson; Cardiology-Dr. Dan Chief Complaint: A. fib RVR Subjective: Other (Patient stable at this time. Patient remains in atrial fibrillation with rate around 100-115) Physical Examination - Vital Signs Temperature: 97.7 F Blood Pressure: 116/71 Pulse: 120 Respirations: 30 Pulse Ox (%): 91 - Studies Laboratory Data (last 24 hrs) 01/24/21 17:37: PT 41.3 H, INR 3.55 01/24/21 17:37: WBC 11.20 H D, Hgb 14.3, Hct 44.7 D, Plt Count 173 01/24/21 17:37: Sodium 137, Potassium 3.6, BUN 15, Creatinine 0.80, Glucose 93, Magnesium 2.0, Total Bilirubin 1.2 H, AST 35, ALT 36, Alkaline Phosphatase 90 Assessment & Plan Discharge Plan: Home Plan to discharge in: 72 Hours Physician Review Additional Text: COVID: Positive CXR: COMPARISON: Chest Single View dated 01/18/2021; Chest Single View dated 08/11/19; Chest Single View dated 04/01/2020; Chest Single View dated 03/11/2020; Abdomen Pelvis W Contrast dated 01/18/2021 FINDINGS: Lines: None. Lungs: No evidence of edema or pneumonia. Prominence of the interstitial markings in left mid lung are similar to prior. This may be reflection of radiographic technique. Pleural: No significant pleural effusions or pneumothorax. Cardiac: Cardiomegaly. Sternotomy. Atherosclerosis. Bones: No acute fractures. Thoracolumbar curvature. IMPRESSION: No acute cardiopulmonary disease. Physical exam: General: Patient alert, cooperative HEENT: Neck supple Respiratory: Clear bilateral on room air Cardiovascular: Irregular regular with rate around 100-115 Capillary refill: <2 Seconds Gastrointestinal: Normal bowel sounds, No tenderness Musculoskeletal: No tenderness Integumentary: No rashes Neurological: Normal speech, Normal strength at 5/5 x4 extr, Normal tone, Normal affect Impression: A. fib RVR with history of A. fib and mechanical aortic valve replacement on chronic anticoagulation therapy COVID-19 positive Chronic diastolic congestive heart failure Hypertension Hyperlipidemia Plan: A. fib RVR with history of A. fib and mechanical aortic valve replacement on chronic anticoagulation therapy: Patient remains on IV Cardizem drip. Will discuss with cardiology about plan of care. Continue with Coumadin. Will monitor closely. Await recommendations from Cardiology. COVID-19 positive: Saturation stable this time will continue with daily room air saturations, oral supplements. Patient not hypoxic, no need for steroids at this time. Will trend CRP/ferritin. Chronic diastolic congestive heart failure: Previous echocardiogram from last year with normal ejection fraction, no complications with mechanical valve. Will monitor. Hypertension: Obtain and verify home meds. Will make adjustments accordingly. Will discuss with cardiology Hyperlipidemia: Obtain and continue home medication. DVT PPX: Continue warfarin Code status: Full code Discharge Plan: Home at discharge Time Spent Managing Pts Care (In Minutes): 55
[2021-01-25] MEDS ORDERED: MAGNESIUM SULFATE 1 gm IVPB 1 GM/100 ML BAG IV ONE (06:09)
[2021-01-25] MEDS: THIAMINE HCL 100 MG TABLET PO SCH (07:47)
[2021-01-25] MEDS: VITAMIN D 1000 UNIT TAB PO SCH (07:47)
[2021-01-25] MEDS: ZINC SULFATE 220 MG CAP PO SCH (07:47)
[2021-01-25] MEDS: ASCORBIC ACID 500 MG TABLET PO SCH ×4 (07:47→21:00)
[2021-01-25] MEDS ORDERED: POTASSIUM CL SA 10 MEQ TAB PO ONE (07:51)
[2021-01-25] MEDS: LOPERAMIDE HCL 2 MG CAPSULE PO PRN ×3 (10:14→20:44)
[2021-01-25] MEDS ORDERED: AMIODARONE HCL 150 MG in D5W 100 ML IV STA (11:59)
[2021-01-25] MEDS ORDERED: AMIODARONE HCL 900 MG in Dextrose 5%-Water 482 ML IV SCH ×3 (12:00→18:30)
[2021-01-25 14:17] LABS: C.diff Antigen/Toxin Ag neg : Tox neg (NEG : NEG)
--- NOTE | 2021-01-25 16:39 | EKG ---
Test Date: 2021-01-24 Test Time: 17:15:46 Solutions Sales Executive: TTR MEASUREMENT RESULTS: Intervals: Rate: 147 NE: QRSD: 80 QT: 308 QTc: 482 [place]: P: NE: QRS: 57 T: 95 INTERPRETIVE STATEMENTS: Atrial fibrillation with rapid ventricular response Nonspecific ST abnormality Abnormal ECG Compared to ECG 01/18/2021 19:12:35 Sinus rhythm no longer present ST (T wave) deviation still present Electronically Signed On 01-25-21 16:35:49 CDT by Soren Carter
[2021-01-25] MEDS: WARFARIN SODIUM 2.5 MG TAB PO SCH (17:06)
[2021-01-26] MEDS: TRAMADOL HCL 50 MG TAB PO PRN ×2 (03:09→21:01)
[2021-01-26 05:29] LABS: Absolute Lymphocytes (CBC) 0.5 K/uL (0.7-4.9); Basophils % 0.7 % (0-1.3); Lymphocytes % 6.6 % (15.3-44.8); Protime INR 4.74; RBC Red Blood Cell Count 3.98 M/uL (3.86-4.86)
[2021-01-26 05:42] LABS: Albumin 2.3 g/dL (3.4-5.0); Bilirubin Total 0.7 mg/dL (0.2-1.0); Ferritin 736.4 ng/mL (8-388); Magnesium 1.9 mg/dL (1.8-2.4); Potassium 3.4 mmol/L (3.5-5.1); Protein, Total 5.9 g/dL (6.4-8.2)
--- NOTE | 2021-01-26 05:49 | P.PN ---
Subjective Date of Service: 01/26/21 Primary Care Provider: Dr. Dobson; Cardiology-Dr. Dan Chief Complaint: A. fib RVR Subjective: Improving, Other (Amiodarone was adjusted last night for better rate control) Physical Examination - Vital Signs Temperature: 98 F Blood Pressure: 116/76 Pulse: 115 Respirations: 22 Pulse Ox (%): 92 Assessment & Plan Discharge Plan: Home Plan to discharge in: 48 Hours Physician Review Additional Text: COVID: Positive CXR: COMPARISON: Chest Single View dated 01/18/2021; Chest Single View dated 08/10/2020; Chest Single View dated 04/01/2020; Chest Single View dated 03/11/2020; Abdomen Pelvis W Contrast dated 01/18/2021 FINDINGS: Lines: None. Lungs: No evidence of edema or pneumonia. Prominence of the interstitial m arkings in left mid lung are similar to prior. This may be reflection of radiographic technique. Pleural: No significant pleural effusions or pneumothorax. Cardiac: Cardiomegaly. Sternotomy. Atherosclerosis. Bones: No acute fractures. Thoracolumbar curvature. IMPRESSION: No acute cardiopulmonary disease. Physical exam: General: Patient alert, cooperative HEENT: Neck supple Respiratory: Clear bilateral on room air Cardiovascular: Irregular regular with rate around 100-115 Capillary refill: <2 Seconds Gastrointestinal: Normal bowel sounds, No tenderness Musculoskeletal: No tenderness Integumentary: No rashes Neurological: Normal speech, Normal strength at 5/5 x4 extr, Normal tone, Normal affect Impression: A. fib RVR with history of A. fib and mechanical aortic valve replacement on chronic anticoagulation therapy COVID-19 positive Chronic diastolic congestive heart failure Hypertension Hyperlipidemia Plan: A. fib RVR with history of A. fib and mechanical aortic valve replacement on chronic anticoagulation therapy: Amiodarone was started yesterday. Cardizem discontinued. Amiodarone was increased yesterday night for better rate control. Heart rate around 100-115. Patient on Coumadin. Maintain INR between 2.5 and 3.5. Hold Coumadin if greater than 3.5. Spoke with cardiology yesterday. Patient may require cardioversion if the patient remains in continued A. fib with RVR. COVID-19 positive: Patient stable at this time. No need for steroids. Chronic diastolic congestive heart failure: Previous echocardiogram from last year with normal ejection fraction, no complications with mechanical valve. Will monitor. Hypertension: Blood pressure stable. Will obtain and verify home medication Hyperlipidemia: Obtain and verify home medication DVT PPX: Coumadin Code status: Full code Discharge Plan: Home at discharge Time Spent Managing Pts Care (In Minutes): 55
--- NOTE | 2021-01-26 07:24 | ECHO ---
HEIGHT: 5 ft 3.5 in WEIGHT: 98 lb 0 oz DATE OF STUDY: 01/25/[address]: Soren Carter MD 2-DIMENSIONAL: YES M.MODE: YES DOPPLER: YES COLOR FLOW: YES TDS: NO PORTABLE: YES DEFINITY: NO BUBBLE STUDY: NO DIAGNOSIS: ATRIAL FIBRILLATION CARDIAC HISTORY: CATHERIZATION: SURGERY: PROSTHETIC VALVE: PACEMAKER: MEASUREMENTS (cm) DIASTOLIC (NORMALS) SYSTOLIC (NORMALS) IVSd 1.0 (0.6-1.2) LA Diam 4.1 (1.9-4.0) LVEF 83% LVIDd 3.4 (3.5-5.7) LVIDs 1.7 (2.0-3.5) %FS 51% LVPWd 0.9 (0.6-1.2) Ao Diam 2.1 (2.0-3.7) 2 DIMENSIONAL ASSESSMENT: RIGHT ATRIUM: NORMAL LEFT ATRIUM: DILATED RIGHT VENTRICLE: NORMAL LEFT VENTRICLE: NORMAL TRICUSPID VALVE: NORMAL MITRAL VALVE: NORMAL PULMONIC VALVE: NORMAL AORTIC VALVE: NORMAL PERICARDIAL EFFUSION: NONE AORTIC ROOT: NORMAL LEFT VENTRICULAR WALL MOTION: NORMAL DOPPLER/COLOR FLOW: MILD TRICUSPID REGURGITATION. NORMAL RIGHT VENTRICULAR SYSTOLIC PRESSURE. COMMENTS: ATRIAL FIBRILLATION. NORMAL LEFT VENTRICULAR SIZE AND FUNCTION. NO THROMBUS. LEFT ATRIAL ENLARGEMENT. MILD TRICUSPID REGURGITATION. TECHNOLOGIST: Danna ZAMORA
[2021-01-26] MEDS: INFLUENZA VACCINE (for 6+ mo) 0.5 ML DOSE IMVAC ONE (08:00)
[2021-01-26] MEDS ORDERED: POTASSIUM CL SA 10 MEQ TAB PO ONE (08:00)
[2021-01-26] MEDS: VITAMIN D 1000 UNIT TAB PO SCH (09:02)
[2021-01-26] MEDS: ASCORBIC ACID 500 MG TABLET PO SCH ×4 (09:02→21:01)
[2021-01-26] MEDS: THIAMINE HCL 100 MG TABLET PO SCH (09:02)
[2021-01-26] MEDS: ZINC SULFATE 220 MG CAP PO SCH (09:02)
[2021-01-26] MEDS ORDERED: AMIODARONE HCL 900 MG in Dextrose 5%-Water 482 ML IV SCH ×4 (12:30)
[2021-01-26] MEDS ORDERED: PANTOPRAZOLE 40 MG INJ IVP ONE (14:28)
[2021-01-26] MEDS ORDERED: SODIUM CHLORIDE 0.9% 10ML INJ IV PRN (14:28)
[2021-01-26] MEDS: WARFARIN SODIUM 2.5 MG TAB PO SCH (16:08)
[2021-01-26] MEDS: ENSURE ENLIVE 237 ML CAN PO SCH (21:03)
[2021-01-27 05:25] LABS: Protime INR 7.95
[2021-01-27 05:36] LABS: Absolute Lymphocytes (CBC) 0.6 K/uL (0.7-4.9); Basophils % 0.7 % (0-1.3); Hematocrit 38.2 % (36.0-45.0); Lymphocytes % 12.5 % (15.3-44.8); MPV 9.1 fL (7.6-11.3); RBC Red Blood Cell Count 4.09 M/uL (3.86-4.86)
[2021-01-27] MEDS: PANTOPRAZOLE 40MG TABLET PO SCH (05:49)
[2021-01-27] MEDS: TRAMADOL HCL 50 MG TAB PO PRN ×3 (05:49→21:59)
[2021-01-27 05:51] LABS: Albumin 2.4 g/dL (3.4-5.0); Bilirubin Total 0.5 mg/dL (0.2-1.0); Ferritin 749.8 ng/mL (8-388); Magnesium 1.8 mg/dL (1.8-2.4); Potassium 4.1 mmol/L (3.5-5.1); Protein, Total 6.1 g/dL (6.4-8.2)
--- NOTE | 2021-01-27 05:53 | P.PN ---
Subjective Date of Service: 01/27/21 Primary Care Provider: Dr. Dobson; Cardiology-Dr. Dan Chief Complaint: A. fib RVR Subjective: Other (Patient remains on IV amiodarone. Rate around 100-1 15.) Physical Examination - Vital Signs Temperature: 97.2 F Blood Pressure: 145/82 Pulse: 106 Respirations: 21 Pulse Ox (%): 95 Assessment & Plan Discharge Plan: Home Plan to discharge in: 48 Hours Physician Review Additional Text: COVID: Positive CXR: COMPARISON: Chest Single View dated 01/18/2021; Chest Single View dated 08/10/2020; Chest Single View dated 04/01/2020; Chest Single View dated 03/11/2020; Abdomen Pelvis W Contrast dated 01/18/2021 FINDINGS: Lines: None. Lungs: No evidence of edema or pneumonia. Prominence of the interstitial markings in left mid lung are similar to prior. This may be reflection of radiographic technique. Pleural: No significant pleural effusions or pneumothorax. Cardiac: Cardiomegaly. Sternotomy. Atherosclerosis. Bones: No acute fractures. Thoracolumbar curvature. IMPRESSION: No acute cardiopulmonary disease. ECHO: MEASUREMENTS (cm) DIASTOLIC (NORMALS) SYSTOLIC (NORMALS) IVSd 1.0 (0.6-1.2) LA Diam 4.1 (1.9-4.0) LVEF 83% LVIDd 3.4 (3.5-5.7) LVIDs 1.7 (2.0-3.5) %FS 51% LVPWd 0.9 (0.6-1.2) Ao Diam 2.1 (2.0-3.7) 2 DIMENSIONAL ASSESSMENT: RIGHT ATRIUM: NORMAL LEFT ATRIUM: DILATED RIGHT VENTRICLE: NORMAL LEFT VENTRICLE: NORMAL TRICUSPID VALVE: NORMAL MITRAL VALVE: NORMAL PULMONIC VALVE: NORMAL AORTIC VALVE: NORMAL PERICARDIAL EFFUSION: NONE AORTIC ROOT: NORMAL LEFT VENTRICULAR WALL MOTION: NORMAL DOPPLER/COLOR FLOW: MILD TRICUSPID REGURGITATION. NORMAL RIGHT VENTRICULAR SYSTOLIC PRESSURE. COMMENTS: ATRIAL FIBRILLATION. NORMAL LEFT VENTRICULAR SIZE AND FUNCTION. NO THROMBUS. LEFT ATRIAL ENLARGEMENT. MILD TRICUSPID REGURGITATION. Physical exam: General: Patient alert, cooperative HEENT: Neck supple Respiratory: Clear bilateral on room air Cardiovascular: Irregular regular with rate around 100-115 Capillary refill: <2 Seconds Gastrointestinal: Normal bowel sounds, No tenderness Musculoskeletal: No tenderness Integumentary: No rashes Neurological: Normal speech, Normal strength at 5/5 x4 extr, Normal tone, Normal affect Impression: A. fib RVR with history of A. fib and mechanical aortic valve replacement on chronic anticoagulation therapy COVID-19 positive Chronic diastolic congestive heart failure Hypertension Hyperlipidemia GERD Plan: A. fib RVR with history of A. fib and mechanical aortic valve replacement on chronic anticoagulation therapy: She remains on IV amiodarone. Rate still around 100-1 15. Coumadin adjusted since the patient is on amiodarone. Pharmacy recommends to decrease Coumadin by half. Continue to hold Coumadin if greater than 3.5. Will discuss with cardiology about plan of care. Patient may require cardioversion. Await recommendations from cardiology. COVID-19 positive: Patient stable at this time. No need for steroids. Chronic diastolic congestive heart failure: Overall stable. Ejection fraction 83%. Hypertension: Blood pressure stable. Will monitor closely. If elevated will consider additional medication Hyperlipidemia: Continue medicationLipitor GERD: Continue Protonix DVT PPX: Coumadin Code status: Full code Discharge Plan: Home at discharge Time Spent Managing Pts Care (In Minutes): 55
[2021-01-27] MEDS ORDERED: MAGNESIUM SULFATE 1 gm IVPB 1 GM/100 ML BAG IV ONE (07:00)
[2021-01-27] MEDS ORDERED: AMIODARONE HCL 900 MG in Dextrose 5%-Water 482 ML IV SCH ×2 (08:00→17:00)
[2021-01-27] MEDS: ASCORBIC ACID 500 MG TABLET PO SCH ×4 (08:01→19:52)
[2021-01-27] MEDS: ZINC SULFATE 220 MG CAP PO SCH (08:01)
[2021-01-27] MEDS: THIAMINE HCL 100 MG TABLET PO SCH (08:01)
[2021-01-27] MEDS: VITAMIN D 1000 UNIT TAB PO SCH (08:02)
[2021-01-27] MEDS: ENSURE ENLIVE 237 ML CAN PO SCH ×2 (08:03→19:53)
[2021-01-27] MEDS ORDERED: LORazepam 2 MG/ML VIAL IV ONE (19:49)
[2021-01-27] MEDS: AMIODARONE HCL 200 MG TAB PO SCH (19:52)
[2021-01-27] MEDS: ATORVASTATIN 40 MG TAB PO SCH (19:52)
[2021-01-28 05:37] LABS: Absolute Lymphocytes (CBC) 0.7 K/uL (0.7-4.9); Basophils % 0.4 % (0-1.3); Hematocrit 37.7 % (36.0-45.0); MPV 9.1 fL (7.6-11.3); RBC Red Blood Cell Count 4.06 M/uL (3.86-4.86)
[2021-01-28 05:47] LABS: Protime INR 5.8
[2021-01-28] MEDS: TRAMADOL HCL 50 MG TAB PO PRN ×2 (05:50→21:28)
[2021-01-28] MEDS: PANTOPRAZOLE 40MG TABLET PO SCH (05:51)
--- NOTE | 2021-01-28 05:53 | P.PN ---
Subjective Date of Service: 01/28/21 Primary Care Provider: Dr. Dobson; Cardiology-Dr. Dan Chief Complaint: A. fib RVR Subjective: Improving, Doing well Physical Examination - Vital Signs Temperature: 97.9 F Blood Pressure: 121/64 Pulse: 118 Respirations: 21 Pulse Ox (%): 93 Assessment & Plan Discharge Plan: Home Plan to discharge in: 24 Hours Physician Review Additional Text: COVID: Positive CXR: COMPARISON: Chest Single View dated 01/18/2021; Chest Single View dated 08/10/2020; Chest Single View dated 04/01/2020; Chest Single View dated 0; Abdomen Pelvis W Contrast dated 01/18/2021 FINDINGS: Lines: None. Lungs: No evidence of edema or pneumonia. Prominence of the interstitial markings in left mid lung are similar to prior. This may be reflection of radiographic technique. Pleural: No significant pleural effusions or pneumothorax. Cardiac: Cardiomegaly. Sternotomy. Atherosclerosis. Bones: No acute fractures. Thoracolumbar curvature. IMPRESSION: No acute cardiopulmonary disease. ECHO: MEASUREMENTS (cm) DIASTOLIC (NORMALS) SYSTOLIC (NORMALS) IVSd 1.0 (0.6-1.2) LA Diam 4.1 (1.9-4.0) LVEF 83% LVIDd 3.4 (3.5-5.7) LVIDs 1.7 (2.0-3.5) %FS 51% LVPWd 0.9 (0.6-1.2) Ao Diam 2.1 (2.0-3.7) 2 DIMENSIONAL ASSESSMENT: RIGHT ATRIUM: NORMAL LEFT ATRIUM: DILATED RIGHT VENTRICLE: NORMAL LEFT VENTRICLE: NORMAL TRICUSPID VALVE: NORMAL MITRAL VALVE: NORMAL PULMONIC VALVE: NORMAL AORTIC VALVE: NORMAL PERICARDIAL EFFUSION: NONE AORTIC ROOT: NORMAL LEFT VENTRICULAR WALL MOTION: NORMAL DOPPLER/COLOR FLOW: MILD TRICUSPID REGURGITATION. NORMAL RIGHT VENTRICULAR SYSTOLIC PRESSURE. COMMENTS: ATRIAL FIBRILLATION. NORMAL LEFT VENTRICULAR SIZE AND FUNCTION. NO THROMBUS. LEFT ATRIAL ENLARGEMENT. MILD TRICUSPID REGURGITATION. Physical exam: General: Patient alert, cooperative HEENT: Neck supple Respiratory: Clear bilateral on room air Cardiovascular: Irregular regular with rate around 100-115 Capillary refill: <2 Seconds Gastrointestinal: Normal bowel sounds, No tenderness Musculoskeletal: No tenderness Integumentary: No rashes Neurological: Normal speech, Normal strength at 5/5 x4 extr, Normal tone, Normal affect Impression: A. fib RVR with history of A. fib and mechanical aortic valve replacement on chronic anticoagulation therapy COVID-19 positive Chronic diastolic congestive heart failure Hypertension Hyperlipidemia GERD Plan: A. fib RVR with history of A. fib and mechanical aortic valve replacement on chronic anticoagulation therapy: Patient remains in A. fib. Case discussed at length with cardiology yesterday. Rate around 100-115. Patient has been transitioned from IV amiodarone to oral amiodarone 400 mg 1 pill twice daily. We will add metoprolol 12.5 mg for better rate control. Coumadin adjusted since the patient is on amiodarone. Pharmacy recommends to decrease Coumadin by half. Continue to hold Coumadin if greater than 3.5. No cardioversion required. Patient has failed multiple therapies including sotalol as an outpatient. Cardiology recommends cardiac ablation in the near future. Anticipate discharge likely tomorrow on oral medication and close follow-up with cardiology so that cardiac ablation can be done with electrophysiology. COVID-19 positive: Patient stable at this time. No need for steroids. Chronic diastolic congestive heart failure: Overall stable. Ejection fraction 83%. Hypertension: Metoprolol added this morning for better blood pressure and rate control. Hyperlipidemia: Continue medicationLipitor GERD: Continue Protonix DVT PPX: Coumadin Code status: Full code Discharge Plan: Home at discharge Time Spent Managing Pts Care (In Minutes): 55
[2021-01-28] MEDS: METOPROLOL TAR 25 MG TAB PO SCH ×2 (05:56→17:46)
[2021-01-28 05:57] LABS: Albumin 2.3 g/dL (3.4-5.0); Bilirubin Total 0.4 mg/dL (0.2-1.0); C-Reactive Protein 67.3 mg/L (<3.00); Ferritin 571.3 ng/mL (8-388); Magnesium 1.5 mg/dL (1.8-2.4); Protein, Total 5.9 g/dL (6.4-8.2)
[2021-01-28 06:21] VITALS: BMI 16.4
[2021-01-28] MEDS ORDERED: METOPROLOL TAR 25 MG TAB ONE (06:21)
[2021-01-28] MEDS ORDERED: Magnesium Sulfate 2gm IVPB 2 G/50 ML BAG IV ONE (07:00)
[2021-01-28] MEDS: VITAMIN D 1000 UNIT TAB PO SCH (08:21)
[2021-01-28] MEDS: THIAMINE HCL 100 MG TABLET PO SCH (08:21)
[2021-01-28] MEDS: AMIODARONE HCL 200 MG TAB PO SCH ×2 (08:22→21:27)
[2021-01-28] MEDS: ASCORBIC ACID 500 MG TABLET PO SCH ×4 (08:22→21:28)
[2021-01-28] MEDS: ENSURE ENLIVE 237 ML CAN PO SCH ×2 (08:23→21:37)
[2021-01-28] MEDS: ZINC SULFATE 220 MG CAP PO SCH (08:26)
[2021-01-28 10:44] VITALS: O2SAT 95
[2021-01-28] MEDS ORDERED: WARFARIN SODIUM 1 MG TAB PO SCH (17:00)
[2021-01-28] MEDS: ATORVASTATIN 40 MG TAB PO SCH (21:27)
[2021-01-29 05:08] LABS: Absolute Lymphocytes (CBC) 0.8 K/uL (0.7-4.9); Basophils % 0.6 % (0-1.3); Hematocrit 35.2 % (36.0-45.0); Lymphocytes % 11.7 % (15.3-44.8); MPV 9.1 fL (7.6-11.3); RBC Red Blood Cell Count 3.79 M/uL (3.86-4.86)
[2021-01-29 05:12] LABS: Protime INR 3.9
[2021-01-29 05:33] LABS: ALT/SGPT 37 U/L (12-78); AST/SGOT 37 U/L (15-37); Albumin 2.3 g/dL (3.4-5.0); Alkaline Phosphatase 77 U/L (45-117); BUN Blood Urea Nitrogen 16 mg/dL (7-18); Bicarbonate 32 mmol/L (21-32); Bilirubin Total 0.4 mg/dL (0.2-1.0); Glucose Level 90 mg/dL (74-106); Magnesium 1.8 mg/dL (1.8-2.4); Potassium 4.1 mmol/L (3.5-5.1); Protein, Total 5.9 g/dL (6.4-8.2); Sodium Level 139 mmol/L (136-145)
[2021-01-29] MEDS ORDERED: MAGNESIUM SULFATE 1 gm IVPB 1 GM/100 ML BAG IV ONE (05:43)
--- NOTE | 2021-01-29 05:56 | P.DS ---
Admission Date: 01/24/21 Discharge Date: 01/29/21 Primary Care Provider: Dr. Dobson; Cardiology-Dr. Dan Disposition: DC HOME/HOME HEALTH CARE Discharge Condition: GOOD Reason for Admission: A. fib RVR Consultations: Cardiology-Dr. Carter Procedures: COVID: Positive CXR: COMPARISON: Chest Single View dated 01/18/2021; Chest Single View dated 08/10/2020; Chest Single View dated 04/01/2020; Chest Single View dated 03/11/2020; Abdomen Pelvis W Contrast dated 01/18/2021 FINDINGS: Lines: None. Lungs: No evidence of edema or pneumonia. Prominence of the interstitial markings in left mid lung are similar to prior. This may be reflection of radiographic technique. Pleural: No significant pleural effusions or pneumothorax. Cardiac: Cardiomegaly. Sternotomy. Atherosclerosis. Bones: No acute fractures. Thoracolumbar curvature. IMPRESSION: No acute cardiopulmonary disease. ECHO: MEASUREMENTS (cm) DIASTOLIC (NORMALS) SYSTOLIC (NORMALS) IVSd 1.0 (0.6-1.2) LA Diam 4.1 (1.9-4.0) LVEF 83% LVIDd 3.4 (3.5-5.7) LVIDs 1.7 (2.0-3.5) %FS 51% LVPWd 0.9 (0.6-1.2) Ao Diam 2.1 (2.0-3.7) 2 DIMENSIONAL ASSESSMENT: RIGHT ATRIUM: NORMAL LEFT ATRIUM: DILATED RIGHT VENTRICLE: NORMAL LEFT VENTRICLE: NORMAL TRICUSPID VALVE: NORMAL MITRAL VALVE: NORMAL PULMONIC VALVE: NORMAL AORTIC VALVE: NORMAL PERICARDIAL EFFUSION: NONE AORTIC ROOT: NORMAL LEFT VENTRICULAR WALL MOTION: NORMAL DOPPLER/COLOR FLOW: MILD TRICUSPID REGURGITATION. NORMAL RIGHT VENTRICULAR SYSTOLIC PRESSURE. COMMENTS: ATRIAL FIBRILLATION. NORMAL LEFT VENTRICULAR SIZE AND FUNCTION. NO THROMBUS. LEFT ATRIAL ENLARGEMENT. MILD TRICUSPID REGURGITATION. Medical Problem List: A. fib RVR with history of A. fib and mechanical aortic valve replacement on chronic anticoagulation therapy COVID-19 positive Chronic diastolic congestive heart failure Hypertension Hyperlipidemia GERD Chronic pain and neuropathy Brief History of Present Illness: 65-year-old female with history of atrial fibrillation on chronic anticoagulation therapy with warfarin, aortic valve replacement, chronic diastolic congestive heart failure, hypertension, hyperlipidemia who recently tested positive for Covid 01/19/2021. Family reports patient has not been eating well and has not been acting herself for the past couple of days. Patient reported chest pain and palpitations. In the ER patient was found to have atrial fibrillation with RVR. Rate in the 160s. Patient was started on IV Cardizem drip. Patient admitted for treatment. Patient has been taking sotalol for A. fib. Hospital Course: Patient presented with atrial fibrillation with RVR. Patient with history of atrial fibrillation and mechanical aortic valve replacement on chronic anticoagulation therapyCoumadin. During the course of her stay patient was treated with IV diltiazem. Patient previously on sotalol. Cardiology was consulted to further address. Diltiazem was discontinued. This was switched over to IV amiodarone. Sotalol was discontinued. During the course of her stay patient was transitioned off IV amiodarone to oral amiodarone. Additional medication included metoprolol for rate control. Her condition improved. Cardi ology recommends to continue with sotalol. At discharge patient remains in atrial fibrillation with rate control. At discharge the patient will continue with amiodarone 400 mg twice daily for 7 days then 200 mg twice daily. The patient will also continue with metoprolol 12.5 mg 1 pill twice daily. For her Coumadin, this was decreased since she is on amiodarone. At discharge she will continue with Coumadin at 1 mg at bedtime. Recommend to recheck INR in 1 week. Recommend to maintain INR between 2.5 and 3.5. Recommend follow-up with cardiology within the next 3 to 5 days. Cardiology plans to send patient to cardiac [facility] health [facility] for cardiac ablation as an outpatient. This will need to be done up in [place]. Patient should follow-up with cardiology to further address her amiodarone, INR checks and cardiac ablation. Recommend follow-up with her PCP within 1 week to [place] hospitalization and continue her care. Patient with COVID-19. Patient was positive for COVID-19. Patient appeared asymptomatic. Patient did not require any oxygen. Patient remains on room air. At discharge patient will continue with vitamin supplementation including vitamin C 500 mg 1 pill 3 times a day, vitamin D 2000 units daily, thiamine 100 mg daily, and zinc 220 mg daily. Recommend to continue CDC guidelines on COVID- 19 isolation for at least 10 days, handwashing, facemask use, social distancing. Recommend to continue incentive spirometer, proning and lying on her side. Recommend follow-up with her PCP within 1 week to follow-up her care. Patient with history of chronic diastolic CHF. Overall stable. Ejection fraction around 83%. Patient may continue with a 1500 cc/day fluid restriction. Patient with hypertension. As mentioned above patient now on metoprolol. At discharge we will continue with metoprolol 12.5 mg 1 pill twice daily. Recommend to maintain blood pressure less than 130/80. If blood pressure remains above 140/90, medication may need to be further adjusted. This can be done with the help of her PCP. Recommend to hold metoprolol if blood pressure less than 110 or heart rate less than 60. Recommend follow-up with her PCP or cardiology to further address. Patient with hyperlipidemia. At discharge patient will continue with Lipitor 40 mg daily. Patient with chronic pain and neuropathy. At discharge she will continue with gabapentin 300 mg daily. Patient with GERD. At discharge we will continue with Protonix 40 mg daily. Vital Signs/Physical Exam: Temp Pulse Resp BP Pulse Ox 99.3 F 99 H 18 109/68 98 01/29/21 00:00 01/29/21 04:00 01/29/21 04:00 01/29/21 04:00 01/29/21 04:00 General: Alert, In no apparent distress, Oriented x3, Cooperative HEENT: Atraumatic Neck: Supple Respiratory: Clear to auscultation bilaterally, Normal air movement Cardiovascular: Irregular heart rate/rhythm (Atrial fibrillation rate controlled) Gastrointestinal: No tenderness, No masses, No rebound, No guarding Musculoskeletal: No erythema, No tenderness, No warmth Integumentary: No tenderness/swelling, No erythema, No warmth, No cyanosis Neurological: Normal speech, Normal strength at 5/5 x4 extr, Normal tone, Normal affect Laboratory Data at Discharge: WBC 6.90 K/uL (4.3-10.9) 01/29/21 04:36 Hgb 11.7 g/dL (12.0-15.0) L 01/29/21 04:36 Hct 35.2 % (36.0-45.0) L 01/29/21 04:36 Plt Count 231 K/uL (152-406) 01/29/21 04:36 PT 45.5 SECONDS (9.5-12.5) H 01/29/21 04:36 INR 3.90 01/29/21 04:36 Sodium 139 mmol/L (136-145) 01/29/21 04:36 Potassium 4.1 mmol/L (3.5-5.1) 01/29/21 04:36 BUN 16 mg/dL (7-18) 01/29/21 04:36 Creatinine 0.63 mg/dL (0.55-1.3) 01/29/21 04:36 Glucose 90 mg/dL (74-106) 01/29/21 04:36 Magnesium 1.8 mg/dL (1.8-2.4) 01/29/21 04:36 Total Bilirubin 0.4 mg/dL (0.2-1.0) 01/29/21 04:36 AST 37 U/L (15-37) 01/29/21 04:36 ALT 37 U/L (12-78) 01/29/21 04:36 Alkaline Phosphatase 77 U/L (45-117) 01/29/21 04:36 Triglycerides 103 mg/dL (<150) 01/25/21 04:58 Cholesterol 143 mg/dL (<200) 01/25/21 04:58 HDL Cholesterol 60 mg/dL (40-60) 01/25/21 04:58 Cholesterol/HDL Ratio 2.38 01/25/21 04:58 Home Medications: Atorvastatin Calcium [Lipitor*] 40 mg PO DAILY 01/25/21 Gabapentin 300 mg PO DAILY 01/25/21 Pantoprazole [Protonix Tab*] 40 mg PO DAILY 01/25/21 Amiodarone HCl [Cordarone*] 400 mg PO SEECOM #72 tab 01/29/21 Ascorbic Acid [Vitamin C*] 500 mg PO TID #90 tablet 01/29/21 Cholecalciferol (Vitamin D3) [Vitamin D 1000 Iu Tab*] 2,000 unit PO DAILY #60 tab 01/29/21 Ensure Enlive 237 ml PO BID #60 can 01/29/21 Metoprolol Tartrate [Lopressor*] 12.5 mg PO BID 6AM 6PM #60 tab 01/29/21 Thiamine HCl [Vitamin B-1*] 100 mg PO DAILY #30 tablet 01/29/21 Warfarin Sodium [Coumadin*] 1 mg PO DAILY 5 PM #30 tab 01/29/21 Zinc Sulfate [Zinc Sulfate*] 220 mg PO DAILY #30 cap 01/29/21 New Medications: Amiodarone HCl [Cordarone*] 400 mg PO SEECOM #72 tab Warfarin Sodium [Coumadin*] 1 mg PO DAILY 5 PM #30 tab Ensure Enlive 237 ml PO BID #60 can Metoprolol Tartrate [Lopressor*] 12.5 mg PO BID 6AM 6PM #60 tab Thiamine HCl [Vitamin B-1*] 100 mg PO DAILY #30 tablet Ascorbic Acid [Vitamin C*] 500 mg PO TID #90 tablet Cholecalciferol (Vitamin D3) [Vitamin D 1000 Iu Tab*] 2,000 unit PO DAILY #60 tab Zinc Sulfate [Zinc Sulfate*] 220 mg PO DAILY #30 cap Physician Discharge Instructions: Patient presented with atrial fibrillation with RVR. Patient with history of atrial fibrillation and mechanical aortic valve replacement on chronic anticoagulation therapyCoumadin. During the course of her stay patient was treated with IV diltiazem. Patient previously on sotalol. Cardiology was consulted to further address. Diltiazem was discontinued. This was switched over to IV amiodarone. Sotalol was discontinued. During the course of her stay patient was transitioned off IV amiodarone to oral amiodarone. Additional medication included metoprolol for rate control. Her condition improved. Cardiology recommends to continue with sotalol. At discharge patient remains in atrial fibrillation with rate control. At discharge the patient will continue with amiodarone 400 mg twice daily for 7 days then 200 mg twice daily. The patient will also continue with metoprolol 12.5 mg 1 pill twice daily. For her Coumadin, this was decreased since she is on amiodarone. At discharge she will continue with Coumadin at 1 mg at bedtime. Recommend to recheck INR in 1 week. Recommend to maintain INR between 2.5 and 3.5. Recommend follow-up with cardiology within the next 3 to 5 days. Cardiology plans to send patient to cardiac public health dentist for cardiac ablation as an outpatient. This will need to be done up in [place]. Patient should follow-up with cardiology to further address her amiodarone, INR checks and cardiac ablation. Recommend follow-up with her PCP within 1 week to [place] hospitalization and continue her care. Patient with COVID-19. Patient was positive for COVID-19. Patient appeared asymptomatic. Patient did not require any oxygen. Patient remains on room air. At discharge patient will continue with vitamin supplementation including vitamin C 500 mg 1 pill 3 times a day, vitamin D 2000 units daily, thiamine 100 mg daily, and zinc 220 mg daily. Recommend to continue CDC guidelines on COVID- 19 isolation for at least 10 days, handwashing, facemask use, social distancing. Recommend to continue incentive spirometer, proning and lying on her side. Recommend follow-up with her PCP within 1 week to follow-up her care. Patient with history of chronic diastolic CHF. Overall stable. Ejection fraction around 83%. Patient may continue with a 1500 cc/day fluid restriction. Patient with hypertension. As mentioned above patient now on metoprolol. At discharge we will continue with metoprolol 12.5 mg 1 pill twice daily. Recommend to maintain blood pressure less than 130/80. If blood pressure remains above 140/90, medication may need to be further adjusted. This can be done with the help of her PCP. Recommend to hold metoprolol if blood pressure less than 110 or heart rate less than 60. Recommend follow-up with her PCP or cardiology to further address. Patient with hyperlipidemia. At discharge patient will continue with Lipitor 40 mg daily. Patient with chronic pain and neuropathy. At discharge she will continue with gabapentin 300 mg daily. Patient with GERD. At discharge we will continue with Protonix 40 mg daily. Diet: AHA Activity: Ad fransisco Followup: Saurabh Dobson MD [Primary Care Provider] - Time spent managing pt's care (in minutes): 55
[2021-01-29] MEDS: PANTOPRAZOLE 40MG TABLET PO SCH (06:00)
[2021-01-29] MEDS: METOPROLOL TAR 25 MG TAB PO SCH (06:00)
[2021-01-29] MEDS: THIAMINE HCL 100 MG TABLET PO SCH (08:24)
[2021-01-29] MEDS: VITAMIN D 1000 UNIT TAB PO SCH (08:24)
[2021-01-29] MEDS: ASCORBIC ACID 500 MG TABLET PO SCH (08:24)
[2021-01-29] MEDS: ENSURE ENLIVE 237 ML CAN PO SCH (08:24)
[2021-01-29] MEDS: ZINC SULFATE 220 MG CAP PO SCH (08:24)
[2021-01-29] MEDS: AMIODARONE HCL 200 MG TAB PO SCH (08:24)
[2021-01-29 09:39] VITALS: TEMP 98.9
[2021-01-29 10:20] VITALS: BP 113/66
[2021-01-29] MEDS: INFLUENZA VACCINE (for 6+ mo) 0.5 ML DOSE IMVAC ONE (10:58)
--- NOTE | 2021-01-29 11:29 | CON ---
Date of Consultation: 01/25/2021 Reason For Consultation: Atrial fibrillation with rapid ventricular response in the setting of COVID pneumonia. History Of Present Illness: Ms. Saavedra is 65, known to us from previous office visits, was just seen by Dr. Bolanos Recently. Has a history of chronic atrial fibrillation, congestive heart failure, hyp ertension, and dyslipidemia. Came in with COVID pneumonia, rapid ventricular response, shortness of breath. No PND, orthopnea, pedal edema, or syncope. Denied any chills. Has had fever and has had c ough. Past Medical History: As stated above. Allergies: SHE IS ALLERGIC TO MORPHINE AND FENTANYL. Medications: At home are listed by Dr. Bartlett. Physical Examination: Vital Signs: She was in atrial fibrillation, rate of 130. She was afebrile. Other vital signs are stable. HEENT: Negative. Chest: Revealed rales both bases. Cardiac: Revealed atrial fibrillation. Abdomen: Benign, Extremities: Revealed no clubbing, cyanosis. She had trace edema. Diagnostic Data: Her EKG showed atrial fibrillation. White count is 11. INR 3.52. Potassium 3.3. Positive COVID. Increased CRP, ferritin, and BNP. Impression And Plan: Rapid atrial fibrillation. The patient has been given IV Cardizem and sotalol has been held. Echocardiogram is pending. The patient is on Coumadin. Dr. Bolanos had recommended a blation, possible Watchman procedure because of her anemia and multiple risk factors. I would person ally start her on IV amiodarone at this point and see how she does with that. We can always give her a dose of digoxin and we can always add metoprolol. We will discontinue the IV Cardizem for now. We will see what her echo shows. PANCHITO/MODL Voice ID: [id number] Report ID: [id number]
== END 2021-01-29 11:25 | disposition home health service (06) | DRG 308 ==
LOC: ER 16:40 → ERHOLD 20:06 → 3RD-ICU 21:17
PROVIDERS: ADMIT Family Medicine; ATTEND Family Medicine
DX: I48.19 Other persistent atrial fibrillation (principal); U07.1 COVID-19; I50.32 Chronic diastolic (congestive) heart failure; I11.0 Hypertensive heart disease with heart failure; K21.9 Gastro-esophageal reflux disease without esophagitis; G89.29 Other chronic pain; G62.9 Polyneuropathy, unspecified; E78.5 Hyperlipidemia, unspecified; Z88.5 Allergy status to narcotic agent; Z79.82 Long term (current) use of aspirin; Z79.01 Long term (current) use of anticoagulants; Z79.899 Other long term (current) drug therapy; Z95.2 Presence of prosthetic heart valve; Z79.52 Long term (current) use of systemic steroids; Z98.51 Tubal ligation status
CPT/HCPCS: 36415; 71045; 80048; 80053; 80061; 80076; 81003; 81015; 82728; 83735; 83880; 84132; 84443; 84484; 85025; 85610; 86140; 87324; 87449; 93005; 93306; 96365; 96375; 99285; C9113; J0282; J3475; J7030; J7040; J7060

== ENCOUNTER 2021-01-31 21:12 | Observation (INO) | payer OTHER ==
[2021-01-31 22:20] LABS: Absolute Lymphocytes (CBC) 0.8 K/uL (0.7-4.9); Basophils % 0.3 % (0-1.3); Hematocrit 34.1 % (36.0-45.0); Lymphocytes % 8.5 % (15.3-44.8); MPV 8.5 fL (7.6-11.3); Protime INR 2.86; RBC Red Blood Cell Count 3.67 M/uL (3.86-4.86)
[2021-01-31 22:25] LABS: ALT/SGPT 37 U/L (12-78); Albumin 2.6 g/dL (3.4-5.0); Alkaline Phosphatase 81 U/L (45-117); BUN Blood Urea Nitrogen 14 mg/dL (7-18); Bicarbonate 29 mmol/L (21-32); Bilirubin Direct 0.1 mg/dL (0-0.2); Bilirubin Total 0.3 mg/dL (0.2-1.0); Glucose Level 110 mg/dL (74-106); NT PRO-BNP 3899 pg/mL (<125); Sodium Level 143 mmol/L (136-145); Troponin (Emerg Dept Use Only) < 0.02 ng/mL (0.0-0.045)
[2021-01-31 22:26] LABS: AST/SGOT 43 U/L (15-37); Potassium 4.3 mmol/L (3.5-5.1)
[2021-01-31 22:27] LABS: Magnesium 1.9 mg/dL (1.8-2.4)
[2021-01-31] MEDS ORDERED: METOPROLOL TAR 25 MG TAB ONE (22:53)
--- NOTE | 2021-02-01 00:38 | ER ---
Nurse's Notes [facility] Name: Michelle Saavedra Age: 65 yrs Sex: Female : 1955 Arrival Date: 01/31/2021 Time: 21:17 Bed 25 Private MD: Diagnosis: Unspecified combined systolic (congestive) and diastolic (congestive) heart failure;Unspecified atrial flutter;Chest pain, unspecified Presentation: 01/31 21:19 Chief complaint: Patient states: Midsternal CP and palpitations since Saturday, recently sj1 discharged from hosp, denies nausea, vomiting, and sob. Coronavirus screen: Vaccine status: Patient reports being unvaccinated. Ebola Screen: No symptoms or risks identified at this time. Onset of symptoms was January 29, 2021. 21:19 Method Of Arrival: Wheelchair [facility] 21:19 Acuity: JAKUB 2 [facility] 21:24 Initial Sepsis Screen: Does the patient meet any 2 criteria? No. Patient's initial 1 sepsis screen is negative. Does the patient have a suspected source of infection? No. Patient's initial sepsis screen is negative. Risk Assessment: Do you want to hurt yourself or someone else? Patient reports no desire to harm self or others. Triage Assessment: 21:20 General: Appears in no apparent distress. Behavior is calm, cooperative, appropriate sj for age. Pain: Complains of pain in chest Pain radiates to back Pain currently is 9 out of 10 on a pain scale. Quality of pain is described as pressure Pain began 2-3 days ago. Neuro: No deficits noted. Cardiovascular: Reports chest pain. Respiratory: No deficits noted. GI: Reports diarrhea. : No deficits noted. Derm: No deficits noted. Musculoskeletal: No deficits noted. Historical: - Allergies: 21:20 Fentanyl; itching; sj1 21:20 Morphine; sj1 - Home Meds: 21:20 Unable to obtain [Active]; sj1 - PMHx: 21:20 Atrial Fib; Back pain; GERD; Hyperlipidemia; Hypertension; mechanical heart valve; sj1 - PSHx: 21:20 Aortic valve replacement; sj1 - Immunization history:: Client reports having NOT received the Covid vaccine. - Social history:: Smoking status: Patient denies any tobacco usage or history of. Screenin:23 Abuse screen: Denies threats or abuse. Denies injuries from another. Nutritional sj1 screening: No deficits noted. Tuberculosis screening: No symptoms or risk factors identified. Fall Risk None identified. Assessment: 21:50 General: Appears uncomfortable, slender, unkempt, Behavior is anxious, anxious because dc2 she doesn't understand why she was discharged on Saturday feeling the same way, very talkative about how bad she is feeling. . 21:50 Pain: Complains of pain in midsternal area Pain at worst was 7 out of 10 on a pain dc2 scale. Quality of pain is described as burning. Neuro: No deficits noted. Denies dizziness, headache. Cardiovascular: Capillary refill < 3 seconds Patient's skin is warm and dry. Rhythm is atrial flutter Chest pain quality is burning. Respiratory: No deficits noted. Reports My heart is racing " Airway is patent Breath sounds are clear bilaterally. GI: No deficits noted. No signs and/or symptoms were reported involving the gastrointestinal system. : No signs and/or symptoms were reported regarding the genitourinary system. Derm: Skin is fragile, is thin. Musculoskeletal: No deficits noted. 02/01 00:24 Reassessment: Pt complain of headache and back pain, requesting something for pain, dc2 will notify MD. 00:59 Reassessment: Pt up to use BSC. Pt appears weak, states she feels weak. Instructed to dc2 call for assistance before getting up by herself. 03:20 Reassessment: Registration called to [facility] emergency department room. dc2 03:25 Reassessment: Attempt to call report, states that the nurse Valeria is with a patient dc2 and will call back for report. 03:31 Reassessment: Registration states no order for admit, will call provider to make aware. dc2 03:43 Reassessment: Joni Glasgow made aware that pt states at this time that she took her meds dc2 pritor to arrival to the ER. Will not give ordered dose at this time. Vital Signs: 01/31 21:20 BP 133 / 89; Pulse 67; Resp 18; Temp 98.3; Pulse Ox 96% on R/A; Weight 45.36 kg; Height sj1 5 ft. 3 in. (160.02 cm); Pain 9/10; 22:13 BP 151 / 85; Pulse 99; Resp 17; Temp 98.2; Pulse Ox 98% ; Pain 8/10; dc2 02/01 00:00 BP 133 / 75; Pulse 104; Resp 20; Pulse Ox 95% ; Pain 8/10; dc2 01:00 BP 149 / 75; Pulse 96; Resp 18; Pulse Ox 99% ; Pain 5/10; dc2 02:30 BP 139 / 68; Pulse 94; Resp 18; Temp 98.1; Pulse Ox 97% ; Pain 4/10; dc2 03:15 BP 124 / 86; Pulse 74; Resp 18; Pulse Ox 100% ; Pain 3/10; dc2 01/31 21:20 Body Mass Index 17.71 (45.36 kg, 160.02 cm) sj1 Gray Coma Score: 01/31 22:13 Eye Response: spontaneous(4). Verbal Response: oriented(5). Motor Response: obeys dc2 commands(6). Total: 15. ED Course: 21:17 Patient arrived in ED. cf2 21:20 Triage completed. sj1 21:20 Arm band placed on left wrist. sj1 21:23 Patient has correct armband on for positive identification. sj1 21:46 Inserted saline lock: 20 gauge in right forearm, using aseptic technique. ,using vg1 aseptic technique. completed by Danyell FISHER Blood collected. 21:50 Basic Metabolic Panel Sent. dc2 21:50 Basic Metabolic Panel Sent. dc2 21:50 CBC with Diff Sent. dc2 21:50 LFT's Sent. dc2 21:50 Magnesium Sent. dc2 21:50 NT PRO-BNP Sent. dc2 21:50 PT-INR Sent. dc2 21:50 Troponin (emerg Dept Use Only) Sent. dc2 22:00 Patient has correct armband on for positive identification. Allergy band placed. Placed dc2 in gown. Bed in low position. Call light in reach. Side rails up X 1. patient monitor on. Pulse ox on. NIBP on. 22:04 Callie Garcia RN is Primary Nurse. dc2 22:14 No provider procedures requiring assistance completed. dc2 22:16 Gab Pollock PA is PHCP. cp 22:16 Jaycob Cano MD is Attending Physician. cp 22:25 XRAY Chest (1 view) In Process Unspecified. EDMS 23:00 No apparent distress. Resting quietly. Awaiting lab results, Awaiting disposition. dc2 02/01 00:36 Torres Arvizu is Hospitalizing Provider. cp 02:30 Awaiting disposition. Consulted physician to see patient. dc2 02:46 IV is patent, is intact, with fluids infusing freely, Flushed Converted IV to saline dc2 lock on right antecubital area Patient admitted, IV remains in place. Administered Medications: 01/31 22:30 Drug: Metoprolol 25 mg Route: PO; dc2 02/01 02:32 Follow up: Response: Blood pressure is lowered dc2 01/31 22:30 Drug: Lopressor (metoprolol) 5 mg Route: IVP; Site: left antecubital; dc2 02/01 02:32 Follow up: Response: Blood pressure is lowered dc2 00:25 Drug: Lasix (furosemide) 20 mg Route: IVP; Site: left antecubital; dc2 02:32 Follow up: Response: No adverse reaction dc2 Outcome: 00:37 Decision to Hospitalize by Provider. cp 02:48 Instructed on the need for admit, Demonstrated understanding of admit status dc2 03:39 Admitted to Med/surg accompanied by nurse, via wheelchair, room 406, Report called to bridgette2 PHILLIP Shaw 03:39 Condition: stable 03:54 Patient left the ED. dc2 Signatures: Dispatcher [employer] EDMS Gab Pollock PA PA cp Nanette Glaser cf2 Genoveva Dinero RN RN vg1 Callie Garcia RN RN dc2 Danyell Navarrete RN RN sj1 Corrections: (The following items were deleted from the chart) 00:27 00:25 CORONAVIRUS+ drawn and sent. dc2 EDMS 03:43 02:47 amiodarone 400 mg PO dc2 dc2
--- NOTE | 2021-02-01 00:38 | EDPHYS ---
Physician Documentation [facility] Name: Michelle Saavedra Age: 65 yrs Sex: Female : 1955 Arrival Date: 01/31/2021 Time: 21:17 Bed 25 Private MD: ED Physician Jaycob Cano HPI: 01/31 22:00 This 65 yrs old Female presents to ER via Wheelchair with complaints of cp Palpitations. 22:00 The patient presents with a history of heart racing. Context: The symptoms occur at cp rest. 22:00 Onset: The symptoms/episode began/occurred today. cp 22:00 Associated signs and symptoms: Pertinent positives: chest pain, SOB, Pertinent cp negatives: fever. Severity of symptoms: in the emergency department the symptoms are unchanged despite home interventions. Patient reports recent discharge from [facility] this past Saturday. Patient reports she is unsure why she was hospitalized but reports she was not discharged with medications. Review of Records show patient was hospitalized for atrial fibrillation. Historical: - Allergies: 21:20 Fentanyl; itching; sj1 21:20 Morphine; sj1 - Home Meds: 21:20 Unable to obtain [Active]; sj1 - PMHx: 21:20 Atrial Fib; Back pain; GERD; Hyperlipidemia; Hypertension; mechanical heart valve; sj1 - PSHx: 21:20 Aortic valve replacement; sj1 - Immunization history:: Client reports having NOT received the Covid vaccine. - Social history:: Smoking status: Patient denies any tobacco usage or history of. ROS: 22:05 Constitutional: Negative for body aches, chills, fever, poor PO intake. cp 22:05 Eyes: Negative for injury, pain, redness, and discharge. cp 22:05 ENT: Negative for ear pain, sore throat, difficulty swallowing, difficulty handling secretions. 22:05 Cardiovascular: Positive for chest pain, palpitations, Negative for edema. 22:05 Respiratory: Positive for shortness of breath, at rest. Negative for cough, wheezing. 22:05 Abdomen/GI: Negative for abdominal pain, nausea, vomiting, and diarrhea. 22:05 Back: Positive for radiated pain. 22:05 MS/extremity: Negative for injury or acute deformity, decreased range of motion. 22:05 Neuro: Negative for altered mental status, headache, syncope, weakness. 22:05 All other systems are negative. Exam: 21:33 ECG was reviewed by the Attending Physician. cp 22:10 Constitutional: The patient appears in no acute distress, alert, awake, cp non-diaphoretic, non-toxic, well developed, well nourished, frail. 22:10 Head/Face: Normocephalic, atraumatic. cp 22:10 Eyes: Periorbital structures: appear normal, Conjunctiva: normal, no exudate, no injection, Sclera: no appreciated abnormality, Lids and lashes: appear normal, bilaterally. 22:10 ENT: External ear(s): are unremarkable, Nose: is normal, Mouth: Lips: moist, Oral mucosa: pink and intact, moist, Posterior pharynx: Airway: no evidence of obstruction, patent. 22:10 Neck: ROM/movement: is normal, is supple, without pain, no range of motions limitations. 22:10 Chest/axilla: Inspection: normal, Palpation: is normal, no crepitus, no tenderness. 22:10 Cardiovascular: Rate: tachycardic, Edema: is not appreciated, JVD: is not appreciated. 22:10 Respiratory: the patient does not display signs of respiratory distress, Respirations: labored breathing, that is mild, Breath sounds: decreased breath sounds, that are moderate, throughout, stridor, is not appreciated, wheezing: is not appreciated. 22:10 Abdomen/GI: Inspection: abdomen appears normal, Palpation: abdomen is soft and non-tender, in all quadrants. 22:10 Back: pain, ROM is normal. 22:10 Skin: cellulitis, is not appreciated, no rash present. 22:10 Neuro: Orientation: to person, place \T\ time. Mentation: is normal, Motor: moves all fours, strength is normal, Sensation: is normal. Vital Signs: 21:20 BP 133 / 89; Pulse 67; Resp 18; Temp 98.3; Pulse Ox 96% on R/A; Weight 45.36 kg; Height sj1 5 ft. 3 in. (160.02 cm); Pain 9/10; 22:13 BP 151 / 85; Pulse 99; Resp 17; Temp 98.2; Pulse Ox 98% ; Pain 8/10; dc2 02/01 00:00 BP 133 / 75; Pulse 104; Resp 20; Pulse Ox 95% ; Pain 8/10; dc2 01:00 BP 149 / 75; Pulse 96; Resp 18; Pulse Ox 99% ; Pain 5/10; dc2 02:30 BP 139 / 68; Pulse 94; Resp 18; Temp 98.1; Pulse Ox 97% ; Pain 4/10; dc2 03:15 BP 124 / 86; Pulse 74; Resp 18; Pulse Ox 100% ; Pain 3/10; dc2 01/31 21:20 Body Mass Index 17.71 (45.36 kg, 160.02 cm) sj1 Alexander Coma Score: 01/31 22:13 Eye Response: spontaneous(4). Verbal Response: oriented(5). Motor Response: obeys dc2 commands(6). Total: 15. MDM: 22:17 Patient medically screened. cp 02/01 00:35 Data reviewed: vital signs, nurses notes, lab test result(s), EKG, radiologic studies, cp plain films. 00:35 Test interpretation: by ED physician or midlevel provider: ECG, plain radiologic cp studies. Counseling: I had a detailed discussion with the patient and/or guardian regarding: the historical points, exam findings, and any diagnostic results supporting the discharge/admit diagnosis, lab results, radiology results. Response to treatment: the patient's symptoms have mildly improved after treatment, and as a result, I will admit patient. Physician consultation: Emerson LAGUNAS was called at 00:30, was contacted at 00:30, regarding admission, to the telemetry unit. patient's condition, and will see patient in ED, shortly. 01/31 21:45 Order name: Basic Metabolic Panel [facility] 01/31 21:45 Order name: CBC with Diff; Complete Time: 00:07 [facility] 02/01 00:07 Interpretation: Normal except: WBC 9.20; RBC 3.67; HGB 11.2; HCT 34.1; PLT 313; RDW cp 16.0; DENISSE% 79.9; LYM% 8.5. 01/31 21:45 Order name: LFT's; Complete Time: 00:07 [facility] 01/31 21:45 Order name: Magnesium; Complete Time: 00:07 [facility] 01/31 21:45 Order name: NT PRO-BNP; Complete Time: 00:07 [facility] 10/20 00:08 Interpretation: Abnormal: NT PRO-BNP 3899. cp 01/31 21:45 Order name: PT-INR; Complete Time: 00:07 1 02/01 00:11 Interpretation: Abnormal: PT 33.2. cp 01/31 21:45 Order name: Troponin (emerg Dept Use Only); Complete Time: 00:07 vg1 01/31 21:45 Order name: XRAY Chest (1 view); Complete Time: 21:42 vg1 01/31 21:46 Order name: Basic Metabolic Panel; Complete Time: 00:07 EDMS 02/01 00:27 Order name: SARS-COV-2 RT PCR; Complete Time: 21:42 EDMS 01/31 21:45 Order name: EKG; Complete Time: 21:46 vg1 01/31 21:45 Order name: Cardiac monitoring; Complete Time: 21:51 vg1 01/31 21:45 Order name: EKG - Nurse/Tech; Complete Time: 21:45 1 01/31 21:45 Order name: IV Saline Lock; Complete Time: 21:46 1 01/31 21:45 Order name: Labs collected and sent; Complete Time: 21:46 1 01/31 21:45 Order name: O2 Per Protocol; Complete Time: 21:46 vg1 01/31 21:45 Order name: O2 Sat Monitoring; Complete Time: 21:46 vg1 EC/19 21:33 Rate is 100 beats/min. Rhythm is irregular. QRS interval is normal. QT interval is cp normal. T waves are Inverted in leads aVL, aVR. Interpreted by me. Reviewed by me. Administered Medications: 22:30 Drug: Metoprolol 25 mg Route: PO; dc2 02/01 02:32 Follow up: Response: Blood pressure is lowered dc2 01/31 22:30 Drug: Lopressor (metoprolol) 5 mg Route: IVP; Site: left antecubital; dc2 02/01 02:32 Follow up: Response: Blood pressure is lowered dc2 00:25 Drug: Lasix (furosemide) 20 mg Route: IVP; Site: left antecubital; dc2 02:32 Follow up: Response: No adverse reaction dc2 Disposition: 07:29 Co-signature as Attending Physician, Jaycob Cano MD. [email or web address] Disposition Summary: 02/01/21 00:37 Hospitalization Ordered Hospitalization Status: Inpatient Admission cp Provider: Torres Arvizu cp Location: Telemetry/MedSurg (Inpatient) cp Condition: Fair cp Problem: an acute exacerbation cp Symptoms: have improved cp Bed/Room Type: Standard cp Room Assignment: 406(02/01/21 03:23) eb1 Diagnosis - Unspecified combined systolic (congestive) and diastolic (congestive) heart failure cp - Unspecified atrial flutter cp - Chest pain, unspecified cp Forms: - Medication Reconciliation Form cp - SBAR form cp Signatures: Dispatcher [employer] EDMS Gab Pollock PA PA cp Adenike Metcalf RN RN eb1 Genoveva Dinero RN RN vg1 Jaycob Cano MD MD [id number] Callie Garcia RN RN dc2 Danyell Navarrete RN RN sj1 Corrections: (The following items were deleted from the chart) 00:07 00:07 Normal except: WBC 9.20; RBC 3.67; HGB 11.2; HCT 34.1; PLT 313; RDW 16.0; DENISSE% cp 79.9. cp 00:27 00:11 CORONAVIRUS+MR.LAB.BRZ ordered. EDMS EDMS 03:23 00:37 cp eb1
[2021-02-01] MEDS ORDERED: FUROSEMIDE 20 MG/ 2ML VIAL ONE (00:47)
[2021-02-01] MEDS ORDERED: ACETAMINOPHEN 325 MG TABLET ONE (00:55)
[2021-02-01] MEDS ORDERED: AMIODARONE HCL 200 MG TAB ONE (03:13)
--- NOTE | 2021-02-01 03:24 | P.HP ---
Certification for Inpatient Patient admitted to: Observation With expected LOS: <2 Midnights Patient will require the following post-hospital care: None Practitioner: I am a practitioner with admitting privileges, knowledge of patient current condition, hospital course, and medical plan of care. Services: Services provided to patient in accordance with Admission requirements found in Title 42 Section 412.3 of the Code of Federal Regulations Patient History Date of Service: 02/01/21 Reason for admission: palpitations, chest pain History of Present Illness: Ms. Saavedra is a 65 yo F with afib, CHF who was recently discharged from the hospital on 01/29 with plans to schedule a cardiac ablation in [place]. She returns today for midsternal chest pain and palpitations. HR was in the 120s upon arrival, but responded well to PO metoprolol. She was started on PO amiodarone, metoprolol and her warfarin dose was changed at discharge. She was unable to fruit or nut picker her medications on Saturday because the pharmacy was closed, so she picked up her medications tonight. She also reports headache and SOB. She has been COVID+ since 01/18/2021. BNP 3899. Allergies morphine Allergy (Intermediate, Verified 04/27/20 23:29) panic ATTACK; shaking fentanyl Allergy (Verified 04/27/20 23:29) Itching Home Medications: Atorvastatin Calcium [Lipitor*] 40 mg PO DAILY 01/25/21 Gabapentin 300 mg PO DAILY 01/25/21 Pantoprazole [Protonix Tab*] 40 mg PO DAILY 01/25/21 Amiodarone HCl [Cordarone*] 400 mg PO SEECOM #72 tab 01/29/21 Ascorbic Acid [Vitamin C*] 500 mg PO TID #90 tablet 01/29/21 Cholecalciferol (Vitamin D3) [Vitamin D 1000 Iu Tab*] 2,000 unit PO DAILY #60 tab 01/29/21 Ensure Enlive 237 ml PO BID #60 can 01/29/21 Metoprolol Tartrate [Lopressor*] 12.5 mg PO BID 6AM 6PM #60 tab 01/29/21 Thiamine HCl [Vitamin B-1*] 100 mg PO DAILY #30 tablet 01/29/21 Warfarin Sodium [Coumadin*] 1 mg PO DAILY 5 PM #30 tab 01/29/21 Zinc Sulfate [Zinc Sulfate*] 220 mg PO DAILY #30 cap 01/29/21 - Past Medical/Surgical History Diabetic: No -: chronic back pain -: depression -: gallstones -: kidney infection -: GERD -: mechanical aortic valve -: palpitations -: Atrial fibrillation on warfarin -: aortic valve replacement -: cardioversion -: tubal ligation Psychosocial/ Personal History: Patient lives at home with her children - Family History Brother -: Heart disease, Cancer Notes: heart attack Mother -: Heart disease, Diabetes Notes: of heart attack Father -: Heart disease Notes: of heart attack Sister -: Heart disease, Diabetes, Cancer Notes: sisters x2 - DM. sister x1 - heart attack. sister- lung cancer - Social History Smoking Status: Never smoker Alcohol use: No CD- Drugs: No Caffeine use: No Place of Residence: Home Review of Systems 10-point ROS is otherwise unremarkable General: Unremarkable Eyes: Unremarkable ENT: Unremarkable Respiratory: Shortness of Breath Cardiovascular: Chest Pain, Palpitations Gastrointestinal: Unremarkable Genitourinary: Unremarkable Musculoskeletal: Unremarkable Integumentary: Unremarkable Neurological: Unremarkable Lymphatics: Unremarkable Physical Examination - Physical Exam General: Alert, In no apparent distress HEENT: Atraumatic, PERRLA, Mucous membr. moist/pink, EOMI, Sclerae nonicteric Neck: Supple, 2+ carotid pulse no bruit, No LAD, Without JVD or thyroid abnormality Respiratory: Normal air movement, Rhonchi/gurgles Cardiovascular: Normal S1 S2, Irregular heart rate/rhythm Gastrointestinal: Normal bowel sounds, No tenderness Musculoskeletal: No tenderness Integumentary: No rashes Neurological: Normal speech, Normal strength at 5/5 x4 extr, Normal tone, Normal affect Lymphatics: No axilla or inguinal lymphadenopathy - Studies Laboratory Data (last 24 hrs) 01/31/21 21:45: PT 33.2 H, INR 2.86 01/31/21 21:45: WBC 9.20 D, Hgb 11.2 L, Hct 34.1 L, Plt Count 313 D 01/31/21 21:45: Sodium 143, Potassium 4.3, BUN 14, Creatinine 0.77, Glucose 110 H, Magnesium 1.9, Total Bilirubin 0.3, AST 43 H, ALT 37, Alkaline Phosphatase 81 Assessment and Plan - Problems (Diagnosis) (1) Atrial fibrillation with rapid ventricular response Onset Date: 05/01/17 Current Visit: No Status: Acute (2) Chest pain Onset Date: 06/15/15 Current Visit: No Status: Acute Qualifiers: Chest pain type: unspecified (3) Palpitations Onset Date: 06/28/14 Current Visit: No Status: Acute (4) SOB (shortness of breath) Onset Date: 04/06/18 Current Visit: No Status: Acute (5) CHF (congestive heart failure) Current Visit: No Status: Chronic Qualifiers: Heart failure type: unspecified Heart failure chronicity: chronic Qualified Code(s): I50.9 - Heart failure, unspecified (6) H/O aortic valve repair Current Visit: No Status: Chronic (7) HLD (hyperlipidemia) Current Visit: No Status: Chronic Qualifiers: Hyperlipidemia type: unspecified Qualified Code(s): E78.5 - Hyperlipidemia, unspecified (8) HTN (hypertension) Current Visit: No Status: Chronic Qualifiers: Hypertension type: primary hypertension Qualified Code(s): I10 - Essential (primary) hypertension - Plan patient unaware of need to call cardiology to arrange for cardiac ablation in [place] patient giving different stories about whether or not she has obtained her home medications, lives with family, may need further home assistance for better compliance with medications trend troponins, repeat EKG reconcile and continue home medications fluid restrict social work consulted DVT ppx Discharge Plan: Home Plan to discharge in: 24 Hours - Advance Directives Does patient have a Living Will: No Does patient have a Durable POA for Healthcare: No - Code Status/Comfort Care Code Status Assessed: Yes (full code ) Critical Care: No Time Spent Managing Pts Care (In Minutes): 70
[2021-02-01] MEDS ORDERED: ONDANSETRON 4 MG/2 ML VIAL IV PRN (03:49)
[2021-02-01] MEDS ORDERED: ACETAMINOPHEN 500 MG TAB PO PRN (03:49)
[2021-02-01 05:13] VITALS: BMI 17.4
[2021-02-01] MEDS ORDERED: METOPROLOL TAR 25 MG TAB PO SCH (06:00)
--- NOTE | 2021-02-01 07:49 | RAD REPORT ---
EXAM DESCRIPTION: Phyllis Single View01/31/2021 10:25 pm CLINICAL HISTORY: Chest pain COMPARISON: January 24, 2021 FINDINGS: Mild to moderate bilateral patchy lung opacities. The heart is mildly to moderately enlarg ed. Postsurgical changes involve the chest IMPRESSION: Mild to moderate bilateral patchy lung opacities may represent pulmonary edema or pneum onia
[2021-02-01] MEDS: ASCORBIC ACID 500 MG TABLET PO SCH ×2 (08:38→14:00)
[2021-02-01] MEDS ORDERED: VITAMIN D 1000 UNIT TAB PO SCH ×2 (09:00)
[2021-02-01] MEDS ORDERED: THIAMINE HCL 100 MG TABLET PO SCH ×2 (09:00)
[2021-02-01] MEDS ORDERED: ENSURE ENLIVE 237 ML CAN PO SCH (09:00)
[2021-02-01] MEDS ORDERED: PANTOPRAZOLE 40MG TABLET PO SCH (09:00)
[2021-02-01] MEDS ORDERED: AMIODARONE HCL 200 MG TAB PO SCH (09:00)
[2021-02-01] MEDS ORDERED: ZINC SULFATE 220 MG CAP PO SCH (09:00)
[2021-02-01] MEDS ORDERED: GABAPENTIN 300 MG CAP PO SCH (09:00)
[2021-02-01] MEDS ORDERED: ASCORBIC ACID 500 MG TABLET PO SCH (09:00)
[2021-02-01 10:03] VITALS: O2SAT 94
--- NOTE | 2021-02-01 11:39 | P.DS ---
Admission Date: 02/01/21 Discharge Date: 02/01/21 Disposition: ROUTINE DISCHARGE Discharge Condition: FAIR Reason for Admission: palpitations, chest pain - Problems (1) Atrial fibrillation with rapid ventricular response Onset Date: 05/01/17 Status: Acute (2) H/O aortic valve repair Status: Chronic (3) HTN (hypertension) Status: Chronic Qualifiers: Hypertension type: primary hypertension Qualified Code(s): I10 - Essential (primary) hypertension (4) Mechanical heart valve present Onset Date: 05/01/17 Status: Chronic (5) Chronic diastolic heart failure Status: Acute Brief History of Present Illness: Ms. Saavedra is a 65 yo F with afib, CHF recently discharged from the hospital on 01/29 with plans to follow with cardiology for arrangement for cardiac ablation in [place]. She returned to the ED for midsternal chest pain and palpitations. HR was in the 120s upon arrival, but responded well to PO metoprolol. She was started on PO amiodarone, metoprolol and her warfarin dose was changed at discharge. She was unable to nut picker her medications on Saturday because the pharmacy was closed, so she picked up her medications tonight. She has been COVID+ since 01/18/2021. BNP 3899. Chest x-ray showed mild to moderate bilateral infiltrate suggestive of pulmonary edema versus pneumonia. Patient hospitalized for further management. Hospital Course: Patient placed under observation on the medical floor. Troponin trended negative. Her heart rate was controlled on amiodarone 400 mg b.i.d. and metoprolol 12.5 mg b.i.d. her INR therapeutic. No changes made in her medications. Patient's heart rate has been stable. She is informed she is supposed to follow with Dr. Bolanos in his office for arrangement for cardiac ablation in [place]. She declined physical therapy assessment today. Patient deemed clinically stable for discharge. Vital Signs/Physical Exam: Temp Pulse Resp BP Pulse Ox 97.7 F 90 16 137/88 95 02/01/21 08:00 02/01/21 08:00 02/01/21 08:00 02/01/21 08:00 02/01/21 08:00 General: Alert, In no apparent distress, Oriented x3 HEENT: Mucous membr. moist/pink Neck: JVD not distended Respiratory: Clear to auscultation bilaterally, Normal air movement Cardiovascular: No edema, Normal S1 S2, Irregular heart rate/rhythm Gastrointestinal: Soft and benign, Non-distended, No tenderness Musculoskeletal: No swelling Integumentary: No rashes Neurological: Normal strength at 5/5 x4 extr Laboratory Data at Discharge: WBC 9.20 K/uL (4.3-10.9) D 01/31/21 21:45 Hgb 11.2 g/dL (12.0-15.0) L 01/31/21 21:45 Hct 34.1 % (36.0-45.0) L 01/31/21 21:45 Plt Count 313 K/uL (152-406) D 01/31/21 21:45 PT 33.2 SECONDS (9.5-12.5) H 01/31/21 21:45 INR 2.86 01/31/21 21:45 Sodium 143 mmol/L (136-145) 01/31/21 21:45 Potassium 4.3 mmol/L (3.5-5.1) 01/31/21 21:45 BUN 14 mg/dL (7-18) 01/31/21 21:45 Creatinine 0.77 mg/dL (0.55-1.3) 01/31/21 21:45 Glucose 110 mg/dL (74-106) H 01/31/21 21:45 Magnesium 1.9 mg/dL (1.8-2.4) 01/31/21 21:45 Total Bilirubin 0.3 mg/dL (0.2-1.0) 01/31/21 21:45 AST 43 U/L (15-37) H 01/31/21 21:45 ALT 37 U/L (12-78) 01/31/21 21:45 Alkaline Phosphatase 81 U/L (45-117) 01/31/21 21:45 Troponin I < 0.02 ng/mL (0.0-0.045) 02/01/21 09:08 Home Medications: Atorvastatin Calcium [Lipitor*] 40 mg PO DAILY 01/25/21 Gabapentin 300 mg PO DAILY 01/25/21 Pantoprazole [Protonix Tab*] 40 mg PO DAILY 01/25/21 Amiodarone HCl [Cordarone*] 400 mg PO SEECOM #72 tab 01/29/21 Ascorbic Acid [Vitamin C*] 500 mg PO TID #90 tablet 01/29/21 Cholecalciferol (Vitamin D3) [Vitamin D 1000 Iu Tab*] 2,000 unit PO DAILY #60 tab 01/29/21 Ensure Enlive 237 ml PO BID #60 can 01/29/21 Metoprolol Tartrate [Lopressor*] 12.5 mg PO BID 6AM 6PM #60 tab 01/29/21 Thiamine HCl [Vitamin B-1*] 100 mg PO DAILY #30 tablet 01/29/21 Warfarin Sodium [Coumadin*] 1 mg PO DAILY 5 PM #30 tab 01/29/21 Zinc Sulfate [Zinc Sulfate*] 220 mg PO DAILY #30 cap 01/29/21 Diet: AHA Activity: Ad [place] Followup: Saurabh Dobson MD [Primary Care Provider] - 1-2 Weeks (Call to schedule follow up appointment) Jam Bolanos MD [ACTIVE - CAN ADMIT] - 1 Week (For arrangment for Cardiac Ablation in [place].)
[2021-02-01] MEDS ORDERED: WARFARIN SODIUM 1 MG TAB PO SCH (17:00)
[2021-02-01 17:05] VITALS: BP 135/79; TEMP 98
[2021-02-01] MEDS ORDERED: ATORVASTATIN 40 MG TAB PO SCH (21:00)
== END 2021-02-01 16:50 | disposition home or self-care (01) ==
LOC: ER 21:12 → 4TH 02-01 03:35
PROVIDERS: ADMIT Internal Medicine; ATTEND Internal Medicine
DX: I48.91 Unspecified atrial fibrillation (principal); I11.0 Hypertensive heart disease with heart failure; I50.32 Chronic diastolic (congestive) heart failure; U07.1 COVID-19; E78.5 Hyperlipidemia, unspecified; K21.9 Gastro-esophageal reflux disease without esophagitis; M54.9 Dorsalgia, unspecified; G89.29 Other chronic pain; K80.80 Other cholelithiasis without obstruction; F32.A Depression, unspecified; Z95.2 Presence of prosthetic heart valve; Z79.01 Long term (current) use of anticoagulants; Z88.6 Allergy status to analgesic agent; Z98.51 Tubal ligation status; Z82.49 Family history of ischemic heart disease and other diseases of the circulatory system; Z80.9 Family history of malignant neoplasm, unspecified; Z83.3 Family history of diabetes mellitus
CPT/HCPCS: 93005; 85025; 80048; 36415; 83735; 85610; 80076; 84484 ×3; 83880; 71045; 97116; 97161; 94760 ×2; 96375; 96374; 99285; U0003; J1940; G0378 ×2

== ENCOUNTER 2021-02-25 15:58 | Emergency (ER) | payer OTHER ==
[2021-02-25] MEDS ORDERED: NA CHLORIDE 0.9% 1,000 ML ONE (16:54)
[2021-02-25] MEDS ORDERED: NA CHLORIDE 0.9% 500 ML ONE (16:54)
--- NOTE | 2021-02-25 17:11 | RAD REPORT ---
EXAM DESCRIPTION: CT - Head C Spine Cap Wo Con - 02/25/2021 4:41 pm CLINICAL HISTORY: PAIN, trip and fall, left-sided head neck chest pain, abdominal pain COMPARISON: No comparisonsAbdomen Pelvis W Contrast dated 01/18/2021 TECHNIQUE: Axial [address] head images were obtained. Axial [address] cervical spine images were obtain ed with sagittal and coronal reconstruction images reviewed. Axial 5 mm images of the chest, abdomen and pelvis were obtained. All CT scans are performed using dose optimization technique as appropriate and may include automated exposure control or mA/KV adjustment according to patient size. FINDINGS: No intracranial hemorrhage, mass or edema. No midline shift or abnormal fluid collection. Mastoid air cells and paranasal sinuses are clear. No skull fracture. Cervical bodies are normal in height and alignment. No fracture or acute bone finding.C4-5 and C5-6 a nd C6-7 disc space narrowing present. Facet degenerative changes are present. There is mild left fora coretta stenosis at C3-4, C4-5 and C5-6. Dense carotid bulb calcifications are present.No prevertebral soft tissue thickening or paraspinal mass.Central canal detail is inherently limited on CT imaging. CT chest shows no pneumothorax, pulmonary contusion or pleural fluid collection. Minimal scarring milton nges are present. No mediastinal hematoma is present. Aortic valve surgical changes are present. Th ere is dense calcification of the thoracic aorta. The innominate artery is dilated to 2.2 cm. Aortic arch is dilated to 3.6 cm. Mid descending thoracic aorta is dilated to 3.8 cm. No centrally displaced calcification. Vascular assessment is limited in the absence of IV contrast. Prominent bronchial wal l calcifications are present. No chest will mass or abnormal axillary finding. No displaced rib fract ures are seen. Old rib injury noted anterior left third and fourth ribs. CT abdomen and pelvis show no injury to solid abdominal viscera. Gallstones are present without acute gallbladder finding. No biliary tree dilatation. No bowel injury or significant finding. No free air , free fluid or abnormal stranding. No hernia, mass or bulky lymphadenopathy. No urinary bladder abn ormality. Severe right hip joint degenerative changes are present. No proximal femur or bony pelvic fracture. S I joint degenerative changes are present. The 50% wedge compression fracture deformity of the L1 body is old. There is slight concavity to the superior endplate T7. Age is uncertain. No acute fracture l janie are confirmed. There is no paraspinal mass or hematoma. IMPRESSION: No significant CT Head finding. Cervical spine degenerative changes are present without acute finding. Dense carotid bulb calcificati ons are present. No acute traumatic injury seen in the chest. Thoracic aortic aneurysmal dilatation present as detaile d. No centrally displaced calcification or suspicion for acute aortic injury. Assessment is limited i n the absence of contrast. No acute CT abdomen or pelvis finding. 50% L1 compression fracture is old. Slight wedging of the T7 body is of uncertain date but favored to be old.
[2021-02-25 17:15] LABS: Absolute Lymphocytes (CBC) 0.9 K/uL (0.7-4.9); Basophils % 0.5 % (0-1.3); Hematocrit 32.3 % (36.0-45.0); Lymphocytes % 7.3 % (15.3-44.8); MPV 8.2 fL (7.6-11.3); RBC Red Blood Cell Count 3.33 M/uL (3.86-4.86)
--- NOTE | 2021-02-25 17:20 | RAD REPORT ---
EXAM DESCRIPTION: RAD - Chest Single View - 02/25/2021 5:01 pm CLINICAL HISTORY: Cough;Chest pain COMPARISON: January 31 TECHNIQUE: AP portable chest image was obtained 02/25/2021 5:01 pm . FINDINGS: Chronic interstitial lung disease is present less pronounced than seen previously. No dens e mass or consolidation confirmed. No free air under the diaphragm. Chronic interstitial pattern coul d mask early edema or infiltrate. Sternotomy wires are in place. Mild cardiomegaly is present. Vasculature within normal limits. No measurable pleural effusion and no pneumothorax. No acute bony abnormality seen. No acute aortic findings suspected. IMPRESSION: Chronic interstitial lung disease present potentially masking mild edema or infiltrate.
--- NOTE | 2021-02-25 17:20 | RAD REPORT ---
EXAM DESCRIPTION: RAD - Shoulder Left 2 View - 02/25/2021 5:01 pm CLINICAL HISTORY: PAIN, fall, shoulder pain COMPARISON: <Comparisons> TECHNIQUE: Internal and external rotation views of the left shoulder were obtained. FINDINGS: There is no fracture or dislocation. AC joint is normal in appearance. No acute or suspici ous findings. IMPRESSION: Negative two-view left shoulder examination for acute findings.
[2021-02-25 17:25] LABS: Urine Blood Negative (Negative); Urine Glucose Negative (Negative); Urine Protein Negative (Negative); Urine Specific Gravity >=1.030 (1.005-1.030)
[2021-02-25 17:32] LABS: ALT/SGPT 26 U/L (12-78); AST/SGOT 20 U/L (15-37); Albumin 3.6 g/dL (3.4-5.0); Alkaline Phosphatase 94 U/L (45-117); BUN Blood Urea Nitrogen 17 mg/dL (7-18); Bicarbonate 27 mmol/L (21-32); Bilirubin Direct 0.1 mg/dL (0-0.2); Bilirubin Total 0.3 mg/dL (0.2-1.0); Glucose Level 186 mg/dL (74-106); Magnesium 2.2 mg/dL (1.8-2.4); NT PRO-BNP 4693 pg/mL (<125); Potassium 3.9 mmol/L (3.5-5.1); Protein, Total 8.1 g/dL (6.4-8.2); Sodium Level 141 mmol/L (136-145); Troponin (Emerg Dept Use Only) < 0.02 ng/mL (0.0-0.045)
[2021-02-25] MEDS ORDERED: HYDROMORPHONE HCL 0.5 MG/0.5 ML INJ ONE (17:40)
[2021-02-25] MEDS ORDERED: ONDANSETRON 4 MG/2 ML VIAL ONE (17:41)
[2021-02-25 17:46] LABS: Protime INR 7.51
--- NOTE | 2021-02-25 18:54 | ER ---
Nurse's Notes [facility] Name: Michelle Saavedra Age: 65 yrs Sex: Female : 1955 Arrival Date: 02/25/2021 Time: 15:59 Bed 10 Private MD: Diagnosis: Chronic atrial fibrillation;Fall on same level, unspecified;Contusion of left shoulder;Adverse effect of anticoagulant antagonists, vitamin K and other coagulants-INR 7.5;Unspecified kidney failure;Acute kidney failure, unspecified-MILD;Anemia, unspecified;Bradycardia, unspecified Presentation: 02/25 16:06 Chief complaint: Patient states: Pt was in backyard and trip and fell back onto Left vg1 shoulder. States hit head, denies LOC. States dizziness, headache and Left side rib pain. Pt does take Coumadin. Denies nausea or vomiting. Incident occurred around 1400 today. Coronavirus screen: Vaccine status: Patient reports being unvaccinated. Client denies travel out of the [place] in the last 14 days. Ebola Screen: Patient negative for fever greater than or equal to 101.5 degrees Fahrenheit, and additional compatible Ebola Virus Disease symptoms. Initial Sepsis Screen: Does the patient meet any 2 criteria? No. Patient's initial sepsis screen is negative. Does the patient have a suspected source of infection? No. Patient's initial sepsis screen is negative. Risk Assessment: Do you want to hurt yourself or someone else? Patient reports no desire to harm self or others. Onset of symptoms was February 25, 2021. 16:06 Method Of Arrival: Wheelchair vg1 16:06 Acuity: JAKUB 3 vg1 Triage Assessment: 16:09 General: Appears in no apparent distress. uncomfortable, Behavior is calm, cooperative. vg1 Pain: Complains of pain in left shoulder, left arm, left side of ribs. Historical: - Allergies: 16:09 Fentanyl; itching; vg1 16:09 Morphine; vg1 - Home Meds: 16:09 aspirin 81 mg Oral tab 1 tab once daily [Active]; atorvastatin 20 mg Oral tab 1 tab vg1 once daily [Active]; Coumadin 2.5 mg Oral tab 1 tab once daily [Active]; gabapentin Oral [Active]; [place] 7.5-325 mg Oral tab 1 tab every 4 hours [Active]; pantoprazole Oral [Active]; sotalol 80 mg Oral tab 2 times per day [Active]; - PMHx: 16:09 Atrial Fib; Back pain; GERD; Hyperlipidemia; Hypertension; mechanical heart valve; vg1 - PSHx: 16:09 Aortic valve replacement; vg1 - Immunization history:: Client reports having NOT received the Covid vaccine. - Social history:: Smoking status: Patient denies any tobacco usage or history of. Screenin:37 Abuse screen: Denies threats or abuse. Denies injuries from another. Nutritional jt3 screening: No deficits noted. Tuberculosis screening: No symptoms or risk factors identified. Fall Risk Fall in past 12 months (25 points). Assessment: 17:37 General: Appears in no apparent distress. Behavior is calm, cooperative. Pain: jt3 Complains of pain in left arm and posterior aspect of left shoulder and anterior aspect of left shoulder Pain does not radiate. Pain currently is 10 out of 10 on a pain scale. Neuro: No deficits noted. Cardiovascular: No deficits noted. Respiratory: No deficits noted. : No deficits noted. Musculoskeletal: Reports pain in back Pt. reports left shoulder pain. Sensation intact. Pt. alert and oriented x4. Pt. able to move arm. No deformities noted. Pt. also reports chronic lower back pain. 18:10 General:. jt3 18:22 Reassessment: Pt. reports pain is better. Alert and oriented x4. Denies needs at this jt3 time. Vital Signs: 16:06 BP 131 / 73; Pulse 118; Resp 16; Temp 97.6; Pulse Ox 100% ; Weight 45.36 kg; Height 5 vg1 ft. 3 in. (160.02 cm); Pain 9/10; 17:48 BP 118 / 50; Pulse 56; Resp 16; Pulse Ox 100% on R/A; jt3 18:46 BP 124 / 61; Pulse 57; Resp 16; Pulse Ox 98% on R/A; jt3 16:06 Body Mass Index 17.71 (45.36 kg, 160.02 cm) vg1 [place] Coma Score: 18:27 Eye Response: spontaneous(4). Verbal Response: oriented(5). Motor Response: obeys milton commands(6). Total: 15. ED Course: 15:59 Patient arrived in ED. as 16:09 Triage completed. vg1 16:09 Arm band placed on. vg1 16:19 Gab Del Real MD is Attending Physician. [facility] 16:20 Dimas Vila, RN is Primary Nurse. jt3 16:41 CT Traumagram (Head C Spine CAP wo con) In Process Unspecified. EDMS 17:00 XRAY Chest (1 view) In Process Unspecified. EDMS 17:01 Shoulder Left (2 View) XRAY In Process Unspecified. EDMS 17:23 EKG done, by ED staff, reviewed by Gba Del Real MD. dh3 17:37 Patient has correct armband on for positive identification. Placed in gown. Bed in low jt3 position. Side rails up X2. 17:37 No provider procedures requiring assistance completed. Inserted saline lock: 20 gauge jt3 in right antecubital area, using aseptic technique. Blood collected. 18:53 Jitendra Nelson MD is Referral Physician. [facility] 19:05 IV discontinued, intact, bleeding controlled, No redness/swelling at site. Pressure jt3 dressing applied. Administered Medications: 17:07 Drug: NS 0.9% 500 ml Route: IV; Rate: bolus; Site: right antecubital; jt3 19:10 Follow up: IV Intake: 500ml jt3 17:09 Drug: NS 0.9% 1000 ml Route: IV; Rate: 125 ml/hr; Site: right antecubital; jt3 17:48 Drug: Dilaudid (HYDROmorphone) 0.5 mg Route: IVP; Site: right antecubital; jt3 18:09 Follow up: Response: No adverse reaction; Pain is decreased jt3 17:48 Drug: Zofran (Ondansetron) 4 mg Route: IVP; Site: right antecubital; jt3 18:09 Follow up: Response: No adverse reaction jt3 Intake: 19:10 IV: 500ml; Total: 500ml. jt3 Outcome: 18:53 Discharge ordered by . [facility] 19:06 Discharged to home via wheelchair. jt3 19:06 Condition: stable 19:06 Discharge instructions given to patient, Instructed on discharge instructions, follow up and referral plans. Demonstrated understanding of instructions, medications, Prescriptions given X 1. 19:10 Patient left the ED. jt3 Signatures: Dispatcher [employer] Gab Nation MD MD cha Martinez, Amelia as Falcon, Claudia dh3 Genoveva Dinero, RN RN vg1 TeDimas cerrato RN RN jt3
--- NOTE | 2021-02-25 18:55 | EDPHYS ---
Physician Documentation [facility] Name: Michelle Saavedra Age: 65 yrs Sex: Female : 1955 Arrival Date: 02/25/2021 Time: 15:59 Bed 10 Private MD: ED Physician Gab Del Real HPI: 02/25 16:25 This 65 yrs old Female presents to ER via Wheelchair with complaints of Fall milton Injury, Shoulder Pain. 16:25 Details of fall: The patient fell from an upright position, while walking. Onset: The milton symptoms/episode began/occurred just prior to arrival. Associated injuries: The patient sustained injury to the head, anterior aspect of left shoulder and posterior aspect of left shoulder, decreased range of motion, painful injury, left scapular area. Severity of symptoms: At their worst the symptoms were moderate, in the emergency department the symptoms are unchanged. The patient has not experienced similar symptoms in the past. Historical: - Allergies: 16:09 Fentanyl; itching; vg1 16:09 Morphine; vg1 - Home Meds: 16:09 aspirin 81 mg Oral tab 1 tab once daily [Active]; atorvastatin 20 mg Oral tab 1 tab vg1 once daily [Active]; Coumadin 2.5 mg Oral tab 1 tab once daily [Active]; gabapentin Oral [Active]; [place] 7.5-325 mg Oral tab 1 tab every 4 hours [Active]; pantoprazole Oral [Active]; sotalol 80 mg Oral tab 2 times per day [Active]; - PMHx: 16:09 Atrial Fib; Back pain; GERD; Hyperlipidemia; Hypertension; mechanical heart valve; vg1 - PSHx: 16:09 Aortic valve replacement; vg1 - Immunization history:: Client reports having NOT received the Covid vaccine. - Social history:: Smoking status: Patient denies any tobacco usage or history of. ROS: 16:26 Constitutional: Negative for fever, chills, and weight loss, Eyes: Negative for injury, milton pain, redness, and discharge, ENT: Negative for injury, pain, and discharge, Neck: Negative for injury, pain, and swelling, Respiratory: Negative for shortness of breath, cough, wheezing, and pleuritic chest pain, Abdomen/GI: Negative for abdominal pain, nausea, vomiting, diarrhea, and constipation, : Negative for injury, bleeding, discharge, and swelling, Skin: Negative for injury, rash, and discoloration, Neuro: Negative for headache, weakness, numbness, tingling, and seizure, Psych: Negative for depression, anxiety, suicide ideation, homicidal ideation, and hallucinations, Allergy/Immunology: Negative for hives, rash, and allergies, Endocrine: Negative for neck swelling, polydipsia, polyuria, polyphagia, and marked weight changes, Hematologic/Lymphatic: Negative for swollen nodes, abnormal bleeding, and unusual bruising. 16:26 Cardiovascular: Positive for chest pain, palpitations. 16:26 Back: Positive for decreased range of motion, pain at rest, of the left scapular area. 16:26 MS/extremity: Positive for decreased range of motion, pain, of the anterior aspect of left shoulder and posterior aspect of left shoulder. Exam: 16:26 Constitutional: This is a well developed, well nourished patient who is awake, alert, milton and in no acute distress. Head/Face: Normocephalic, atraumatic. Eyes: Pupils equal round and reactive to light, extra-ocular motions intact. Lids and lashes normal. Conjunctiva and sclera are non-icteric and not injected. Cornea within normal limits. Periorbital areas with no swelling, redness, or edema. ENT: Nares patent. No nasal discharge, no septal abnormalities noted. Tympanic membranes are normal and external auditory canals are clear. Oropharynx with no redness, swelling, or masses, exudates, or evidence of obstruction, uvula midline. Mucous membranes moist. Neck: Trachea midline, no thyromegaly or masses palpated, and no cervical lymphadenopathy. Supple, full range of motion without nuchal rigidity, or vertebral point tenderness. No Meningismus. Chest/axilla: Normal chest wall appearance and motion. Nontender with no deformity. No lesions are appreciated. Cardiovascular: Regular rate and rhythm with a normal S1 and S2. No gallops, murmurs, or rubs. Normal PMI, no JVD. No pulse deficits. Respiratory: Lungs have equal breath sounds bilaterally, clear to auscultation and percussion. No rales, rhonchi or wheezes noted. No increased work of breathing, no retractions or nasal flaring. Abdomen/GI: Soft, non-tender, with normal bowel sounds. No distension or tympany. No guarding or rebound. No evidence of tenderness throughout. Neuro: Awake and alert, GCS 15, oriented to person, place, time, and situation. Cranial nerves II-XII grossly intact. Motor strength 5/5 in all extremities. Sensory grossly intact. Cerebellar exam normal. Normal gait. Psych: Awake, alert, with orientation to person, place and time. Behavior, mood, and affect are within normal limits. 16:26 Back: pain, that is moderate, ROM is painful, normal spinal alignment noted, CVA tenderness, is absent, vertebral tenderness, is not appreciated, muscle spasm, is appreciated in the left scapular area, left subscapular area and left mid back. 16:31 Musculoskeletal/extremity: ROM: limited active range of motion due to pain, limited milton passive range of motion due to pain, in the anterior aspect of left shoulder and posterior aspect of left shoulder, Circulation is intact in all extremities. Sensation intact. Compartment Syndrome exam of affected extremity: is normal. Weight bearing: able to fully bear weight, Tendon exam: specific tendon testing normal through active and passive range of motion DVT Exam: No signs of deep vein thrombosis. no pain, no swelling, no tenderness, negative Homans' sign noted on exam, no appreciated bluish discoloration, no erythema, no increased warmth. 16:31 Neuro: Orientation: is normal, appropriate for stated age, no acute changes, Mentation: appropriate for stated age, no acute changes, Memory: appropriate for stated age, no acute changes, Cranial nerves: grossly normal, is grossly normal based on the patient's age, no acute changes, Cerebellar function: is grossly normal, is grossly normal based on the patient's age, no acute changes, Motor: is normal, is grossly normal based on the patient's age, Sensation: no obvious gross deficits, appropriate no acute changes, Gait: not applicable Babinski testing is normal, seizure activity, is not displayed by the patient. Vital Signs: 16:06 BP 131 / 73; Pulse 118; Resp 16; Temp 97.6; Pulse Ox 100% ; Weight 45.36 kg; Height 5 vg1 ft. 3 in. (160.02 cm); Pain 9/10; 17:48 BP 118 / 50; Pulse 56; Resp 16; Pulse Ox 100% on R/A; jt3 18:46 BP 124 / 61; Pulse 57; Resp 16; Pulse Ox 98% on R/A; jt3 16:06 Body Mass Index 17.71 (45.36 kg, 160.02 cm) vg1 [place] Coma Score: 18:27 Eye Response: spontaneous(4). Verbal Response: oriented(5). Motor Response: obeys milton commands(6). Total: 15. MDM: 16:19 Patient medically screened. milton 18:27 Differential diagnosis: Contusion of Hematoma on Intracranial bleed- Concussion humeral milton head fracture, glenoid fracture, DJD, tendonitis. Differential diagnosis: closed head injury, contusion, fracture, multiple trauma, sprain, strain. Data reviewed: vital signs, nurses notes, lab test result(s), EKG, radiologic studies, CT scan, plain films. Data interpreted: radiation monitor: rate is 56 beats/min, rhythm is regular, Pulse oximetry: on room air is 100 %. Test interpretation: by ED physician or midlevel provider: ECG, plain radiologic studies. Counseling: I had a detailed discussion with the patient and/or guardian regarding: the historical points, exam findings, and any diagnostic results supporting the discharge/admit diagnosis, lab results, radiology results, the need for outpatient follow up. Physician consultation: Soren Carter MD was contacted at 18:30, regarding patient's condition, need to come to ED to see patient, outpatient follow-up, in 2-3 days, next week, OK TO DC , HOLD COUMADIN X 2 DAYS, FALL PERCAUTIONS. 02/25 16:24 Order name: Basic Metabolic Panel; Complete Time: 18:53 [facility] 02/25 16:24 Order name: CBC with Diff [facility] 02/25 16:24 Order name: LFT's; Complete Time: 18:53 [facility] 02/25 16:24 Order name: Magnesium; Complete Time: 18:53 [facility] 02/25 16:24 Order name: NT PRO-BNP; Complete Time: 18:53 [facility] 02/25 16:24 Order name: PT-INR; Complete Time: 17:56 [facility] 02/25 16:24 Order name: Troponin (emerg Dept Use Only); Complete Time: 18:53 [facility] 02/25 16:24 Order name: XRAY Chest (1 view); Complete Time: 17:23 [facility] 02/25 16:24 Order name: CT Traumagram (Head C Spine CAP wo con); Complete Time: 17:23 [facility] 02/25 16:24 Order name: Shoulder Left (2 View) XRAY; Complete Time: 17:23 [facility] 02/25 17:25 Order name: Urine Dipstick-Ancillary; Complete Time: 17:33 EDMS 02/25 18:13 Order name: LAB Add On eb 02/25 18:19 Order name: Digoxin Level; Complete Time: 18:53 [facility] 02/25 16:24 Order name: EKG; Complete Time: 16:25 [facility] 02/25 16:24 Order name: Cardiac monitoring; Complete Time: 17:07 [facility] 02/25 16:24 Order name: EKG - Nurse/Tech; Complete Time: 17:07 [facility] 02/25 16:24 Order name: IV Saline Lock; Complete Time: 17:07 [facility] 02/25 16:24 Order name: Labs collected and sent; Complete Time: 17:07 [facility] 02/25 16:24 Order name: O2 Per Protocol; Complete Time: 17:07 [facility] 02/25 16:24 Order name: O2 Sat Monitoring; Complete Time: 17:07 [facility] 02/25 16:24 Order name: Urine Dipstick-Ancillary (obtain specimen); Complete Time: 18:31 [facility] 02/25 16:33 Order name: Sling; Complete Time: 19:10 milton Administered Medications: 17:07 Drug: NS 0.9% 500 ml Route: IV; Rate: bolus; Site: right antecubital; jt3 19:10 Follow up: IV Intake: 500ml jt3 17:09 Drug: NS 0.9% 1000 ml Route: IV; Rate: 125 ml/hr; Site: right antecubital; jt3 17:48 Drug: Dilaudid (HYDROmorphone) 0.5 mg Route: IVP; Site: right antecubital; jt3 18:09 Follow up: Response: No adverse reaction; Pain is decreased jt3 17:48 Drug: Zofran (Ondansetron) 4 mg Route: IVP; Site: right antecubital; jt3 18:09 Follow up: Response: No adverse reaction jt3 Disposition Summary: 02/25/21 18:53 Discharge Ordered Location: Home milton Problem: new milton Symptoms: have improved milton Condition: Stable milton Diagnosis - Chronic atrial fibrillation milton - Fall on same level, unspecified milton - Contusion of left shoulder milton - Adverse effect of anticoagulant antagonists, vitamin K and other coagulants - INR milton 7.5 - Unspecified kidney failure milton - Acute kidney failure, unspecified - MILD milton - Anemia, unspecified milton - Bradycardia, unspecified milton Followup: milton - With: Private Physician - When: 2 - 3 days - Reason: Recheck today's complaints, Continuance of care, Re-evaluation by your physician Followup: milton - With: - When: 2 - 3 days - Reason: Recheck today's complaints, Re-evaluation by your physician Discharge Instructions: - Discharge Summary Sheet milton - Atrial Fibrillation milton - Contusion milton - Fall Prevention in the Home, Adult milton - Shoulder Pain milton - Bradycardia, Adult milton - Shoulder Pain, [id number] milton - Contusion, [id number] milton - Fall Prevention in the Home, Adult, [id number] milton - Shoulder Sprain milton - Acute Kidney Injury, Adult milton - Warfarin Information milton Forms: - Medication Reconciliation Form milton - Thank You Letter milton - Antibiotic Education milton - Prescription Opioid Use milton Prescriptions: - Tylenol 325 mg Oral Tablet - take 2 tablets by ORAL route every 6 hours as needed; 1 bottle; Refills: 0, milton Product Selection Permitted Signatures: Dispatcher [employer] Gab Nation MD MD cha Garcia, Victoria, RN RN vg1 Dimas Vila RN RN jt3
[2021-02-25 19:14] VITALS: TEMP 97.6
[2021-02-25 19:17] VITALS: BP 124/61; O2SAT 98
[2021-02-25 19:24] LABS: Anisocytosis 2+; Blood Morphology Comment NOTED (NOT SEEN); Platelet Estimate ADEQ; Polychromasia 1+; White Blood Cell Scan OK (OK)
--- OUTSIDE RECORDS SUMMARY | 2021-02-26 00:15 | XMS REPORT | Continuity of Care Document ---
:1955 Author Organization [facility] [place] t Address [address] [place] [address] Care Team Providers Name Role Phone Dobson, E Primary Care Physician ALETHA Attending Clinician Unavailable Pob, Lab Main Attending Clinician Unavailable Aletha LOVELL Attending Clinician Doctor Unassigned, Name Attending Clinician Unavailable Franco FISHER Attending Clinician Unavailable WALLY Attending Clinician Unavailable DO Attending Clinician Lionel DO Attending Clinician Wally LOVELL Attending Clinician Alejandrina MCDOWELL Attending Clinician Unavailable Ricarda IZQUIERDO Attending Clinician Unavailable RADIOLOGY Attending Clinician Unavailable SHARRON Attending Clinician Unavailable WALLY Admitting Clinician Unavailable Wally LOVELL Admitting Clinician Payers Payer Name Policy Type Policy Number Effective Date Expiration Date S alfonso [facility] DUAL [id number] 2020 COMP HMO D SNP 00:00:00 [facility] [id number] 2013 PLUS 00:00:00 MEDICAID [facility] [id number] 2021 00:00:00 Problems Condition Condition Condition Status [...] positive 0-24 ity of for for 00:00: [place] detection detection 00 Medi tyorne of of Branch COVID-19 COVID-19 virus virus Acute on Acute on Disease Active 2020-04 Unive rs chronic chronic 0-24 ity of diastolic diastolic 00:00: Jose Elias s CHF CHF 00 Medical (congestiv (congestiv Br anch e heart e heart failure), failure), NYHA class NYHA class 3 3 Mixed Mixed Disease Active Univers hyperlipid hyperlipid 8-20 it y of emia emia 00:00: [place] [facility] Essential Essential Disease Active Uni vers hypertensi hypertensi 8-20 it y of on on 00:00: [place] [facility] Anticoagul Anticoagul Disease Active U nivers ated ated 8-20 ity of 00:00: [place] 00 Medical Branch Coronary Coronary Disease Active Unive rs artery artery 8-20 ity of disease disease 00:00: [place] involving involving 00 [place] Branch coronary coronary artery of artery of [place] 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 2-20 ity of disease disease 00:00: [place] involving involving 00 Medi [place] Branch heart heart without without angina angina pectoris, pectoris, unspecifie unspecifie d vessel d vessel or lesion or lesion type type Atrial Atrial Disease Active Univers flutter flutter 4-03 ity of 00:00: [place] 00 Medical Branch Aortic Aortic Disease Active 2015-04 Univers valve valve 0-28 ity of replaced replaced 00:00: [place] [Z95.2] [Z95.2] 00 Medical Branch Chest pain [...] Unable to assess Univers ity of SARS-CoV-2 [place] Medical (event) Branch Tobacco use and 2017-06-04 2017-06-04 Never used Universit y of exposure 00:00:00 00:00:00 [facility] Sex Ass[birth year] At [birth year] Universit y of 00:00:00 00:00:00 [facility] Smoking Status Start Date Stop Date Source Never smoker [facility] Medications Ordered Filled Start Stop Current Ordering Indication Dosage Frequency Signature Comments Components Source Medication Medication Date Date Medication? Clinician (SIG) Name Name warfarin 2 2020-04 Yes [id number] Take 1 [facility] mg tablet 1-03 tablet by ity o f 00:00: mouth 5 days a Medical week. Then Branch .5 tab (1 mg) 2 days per week. warfarin 2 2020-04 Yes [id number] Take 1 [place] mg tablet 1-03 tablet by ity o f 00:00: mouth 5 00 days a Medical week. Then Branch .5 tab (1 mg) 2 days per week. warfarin 2 2020-04 Yes [id number] Take 1 [place] mg tablet 1-03 tablet by ity o f 00:00: mouth 5 days a Medical week. Then Branch .5 tab (1 mg) 2 days per week. warfarin 2 2020-04 Yes [id number] Take 1 [place] mg tablet 1-03 tablet by ity o f 00:00: mouth 5 [place] 00 days a Medical week. Then Branch .5 tab (1 mg) 2 days per week. warfarin 2 2020-04 Yes [id number] Take 1 [facility] [place] mg tablet 1-03 tablet by ity o f 00:00: mouth 5 [place] 00 days a Medical week. Then Branch .5 tab (1 mg) 2 days per week. warfarin 2 2020-04 Yes [id number] 2mg Take 1 [facility] [place] mg tablet 0-29 tablet by ity o f 00:00: mouth [place] 00 every Mon, Medical Wed, Sat Branch and Sun in the evening. Take 1 tablet by mouth 7 days a week. polyethylen 2020-04 Yes [id number] 17g Take 1 Univers e glycol 0-29 Packet by ity of 3350 17 00:00: mouth [place] gram powder 00 daily. Medica l Branch warfarin 2 2020-04 Yes [id number] 2mg Take 1 [place] mg tablet 0-29 tablet by ity o f 00:00: mouth [place] 00 every Mon, Medical Wed, Sat Branch and Sun in the evening. Take 1 tablet by mouth 7 days a week. polyethylen 2020-04 Yes [id number] 17g Take 1 Univers e glycol 0-29 Packet by ity of 3350 17 00:00: mouth [place] gram powder 00 daily. Medica l Branch warfarin 2 2020-04 Yes [id number] 2mg Take 1 [facility] mg tablet 0-29 tablet by ity o f 00:00: mouth [place] 00 every Mon, Medical Wed, Sat Branch and Sun in the evening. Take 1 tablet by mouth 7 days a week. polyethylen 2020-04 Yes [id number] 17g Take 1 Univers e glycol 0-29 Packet by ity of 3350 17 00:00: mouth [place] gram powder 00 daily. Medica l Branch warfarin 2 2020-04 Yes [id number] 2mg Take 1 [facility] mg tablet 0-29 tablet by ity o f 00:00: mouth [place] 00 every Mon, Medical Wed, Fri Branch and Sun in the evening. Take 1 tablet by mouth 7 days a week. polyethylen 2020-04 Yes [id number] 17g Take 1 Univers e glycol 0-29 Packet by ity of 3350 17 00:00: mouth [place] gram powder 00 daily. Medica l Branch polyethylen 2020-04 Yes [id number] 17g Take 1 Univers e glycol 0-29 Packet by ity of 3350 17 00:00: mouth [place] gram powder 00 daily. Medica l Branch polyethylen 2020-04 Yes [id number] 17g Take 1 Univers e glycol 0-29 Packet by ity of 3350 17 00:00: mouth [place] gram powder 00 daily. Medica l Branch polyethylen 2020-04 Yes [id number] 17g Take 1 Univers e glycol 0-29 Packet by ity of 3350 17 00:00: mouth [place] gram powder 00 daily. Medica l Branch polyethylen 2020-04 Yes [id number] 17g Take 1 Univers e glycol 0-29 Packet by ity of 3350 17 00:00: mouth [place] gram powder 00 daily. Medica l Branch polyethylen 2020-04 Yes [id number] 17g Take 1 Univers e glycol 0-29 Packet by ity of 3350 17 00:00: mouth [place] gram powder 00 daily. Medica l Branch digoxin 125 2020-04- Yes [id number] .125mg Take 1 Univers mcg tablet 0-29 11-29 tablet by ity of 00:00: 05:59 mouth [place] 00 :00 daily for Medical 30 days. Branch digoxin 125 2020-04- Yes [id number] .125mg Take 1 Univers mcg tablet 0-29 11-29 tablet by ity of 00:00: 05:59 mouth [place] 00 :00 daily for Medical 30 days. Branch digoxin 125 2020-04- Yes [id number] .125mg Take 1 Univers mcg tablet 0-29 11-29 tablet by ity of 00:00: 05:59 mouth [place] 00 :00 daily for Medical 30 days. Branch digoxin 125 2020-04- Yes [id number] .125mg Take 1 Univers mcg tablet 0-29 11-29 tablet by ity of 00:00: 05:59 mouth [place] 00 :00 daily for Medical 30 days. Branch digoxin 125 2020-04- Yes [id number] .125mg Take 1 Univers mcg tablet 0-29 11-29 tablet by ity of 00:00: 05:59 mouth [place] 00 :00 daily for Medical 30 days. Branch digoxin 125 2020-04- Yes [id number] .125mg Take 1 Univers mcg tablet 0-29 11-29 tablet by ity of 00:00: 05:59 mouth [place] 00 :00 daily for Medical 30 days. Branch digoxin 125 2020-04- Yes [id number] .125mg Take 1 Univers mcg tablet 0-29 11-29 tablet by ity of 00:00: 05:59 mouth [place] 00 :00 daily for Medical 30 days. Branch digoxin 125 2020-04- Yes [id number] .125mg Take 1 Univers mcg tablet 0-29 11-29 tablet by ity of 00:00: 05:59 mouth [place] 00 :00 daily for Medical 30 days. Branch digoxin 125 2020-04- Yes [id number] .125mg Take 1 Univers mcg tablet 03-13 tablet by ity of 00:00: 05:59 mouth [place] 00 :00 daily for Medical 30 days. Branch warfarin 2 2020-04- No [id number] 2mg Take 1 U nivers mg tablet -03 tablet by ity of 00:00: 00:00 mouth [place] 00 :00 every Sat, Medical Sat, Sat Branch and Sun in the evening. Take 1 tablet by mouth 7 days a week. warfarin 2020-04- Yes 3mg 3 mg, Univers (COUMADIN) - Oral, ONCE it y of tablet 3 mg 22:00: 09:59 AT 1700, 1 [place] 00 :00 dose, On Medical [facility] 02/09/21 at 1700, Routine
INR Goal Range: 2.5-3.5&lt ;br>INDICA TION (More than one indication for warfarin can be selected): Mechanical AVR, Atrial fibrillati on/flutter polyethylen 2020-04 Yes 17g 17 g, Unive rs e glycol 0- Oral, ity of 3350 powder 14:15: DAILY, [place] 17 g 00 First dose Medical on [facility] 02/09/21 at 0915, Until Discontinu ed, Routine docusate 2020-04 Yes 100mg 100 mg, Unive rs (COLACE) 0- Oral, BID, ity o f capsule 100 14:15: First dose [place] mg 00 on [facility] 02/09/21 Branch at 0915, Until Discontinu ed, Routine bisacodyL 2020-04 Yes 10mg 10 mg, Univer s (DULCOLAX) 0-28 Rectal, ity of suppository 14:01: QDAILYPRN, [place] 10 mg 41 Starting Medical on [facility] 02/09/21 at 0901, Until Discontinu ed, Routine, Constipati on unresolved by oral medication s metoprolol 2020-04- No 25mg Take 25 mg Univers tartrate 25 - by mouth 2 i ty of mg tablet 12:39: 00:00 (two) [place] 48 :00 times Medical daily. Branch amiodarone 2020-04- No 200mg Take 200 U nivers HCl 0-28 10-28 mg by ity of (AMIODARONE 12:39: 00:00 mouth 2 [place] ORAL) 48 :00 (two) Medical times Branch daily. magnesium 2020-04 Yes 400mg 400 mg, Univ ers oxide 0-28 Oral, BID, ity of (MAG-OX 01:00: [place] dose [place] 400[place] tablet 00 (after Medica l 400 mg last Branch modificati on) on Sat02/08/21 at 1999, Until Discontinu ed, Routine docusate 2020-04 Yes [id number] 100mg Take 1 U nivers 100 mg 0-28 capsule by ity of capsule 00:00: mouth [place] (two) Medical times Branch daily. docusate 2020-04 Yes [id number] 100mg Take 1 U nivers 100 mg 0-28 capsule by ity of capsule 00:00: mouth [place] (two) Medical times Branch daily. docusate 2020-04 Yes [id number] 100mg Take 1 U nivers 100 mg 0-28 capsule by ity of capsule 00:00: mouth [place] (two) Medical times Branch daily. docusate 2020-04 Yes [id number] 100mg Take 1 U nivers 100 mg 0-28 capsule by ity of capsule 00:00: mouth [place] (two) Medical times Branch daily. docusate 2020-04 Yes [id number] 100mg Take 1 U nivers 100 mg 0-28 capsule by ity of capsule 00:00: mouth [place] (two) Medical times Branch daily. docusate 2020-04 Yes [id number] 100mg Take 1 U nivers 100 mg 0-28 capsule by ity of capsule 00:00: mouth [place] (two) Medical times Branch daily. docusate 2020-04 Yes [id number] 100mg Take 1 U nivers 100 mg 0-28 capsule by ity of capsule 00:00: mouth 2 [place] (two) Medical times Branch daily. docusate 2020-04 Yes [id number] 100mg Take 1 U nivers 100 mg 0-28 capsule by ity of capsule 00:00: mouth 2 [place] (two) Medical times Branch daily. docusate 2020-04 Yes [id number] 100mg Take 1 U nivers 100 mg 0-28 capsule by ity of capsule 00:00: mouth 2 [place] 00 (two) Medical times Branch daily. metoprolol 2020-04- Yes [id number] 50mg Take 1 Univers tartrate 50 0-28 11-28 tablet by it y of mg tablet 00:00: 05:59 mouth 2 [place] 00 :00 (two) Medical times Branch daily for 30 days. warfarin 3 2020-04- Yes [id number] 3mg Take 1 Univers mg tablet 0-28 11-28 tablet by ity of 00:00: 05:59 mouth [place] 00 :00 every Medical Saturday, Branch and Saturday in the evening for 30 days. furosemide 2020-04- Yes [id number] 20mg Take 1 Univers 20 mg 0-28 11-28 tablet by ity of tablet 00:00: 05:59 mouth 2 [place] 00 :00 (two) Medical times Branch daily for 30 days. magnesium 2020-04- Yes [id number] 400mg Take 400 Univers oxide 420 0-28 11-28 mg by ity of mg Tab 00:00: 05:59 mouth [place] 00 :00 daily for Medical 30 days. Branch KCL 10 mEq 2020-04- Yes [id number] 10meq Take 1 Univers tablet 0-28 11-28 tablet by ity of 00:00: 05:59 mouth [place] 00 :00 daily for Medical 30 days. Branch metoprolol 2020-04- Yes [id number] 50mg Take 1 Univers tartrate 50 0-28 11-28 tablet by it y of mg tablet 00:00: 05:59 mouth 2 [place] 00 :00 (two) Medical times Branch daily for 30 days. warfarin 3 2020-04- Yes [id number] 3mg Take 1 Univers mg tablet 0-28 11-28 tablet by ity of 00:00: 05:59 mouth [place] 00 :00 every Medical Saturday, Branch and Saturday in the evening for 30 days. furosemide 2020-04- Yes [id number] 20mg Take 1 Univers 20 mg 0-28 11-28 tablet by ity of tablet 00:00: 05:59 mouth 2 [place] 00 :00 (two) Medical times Branch daily for 30 days. magnesium 2020-04- Yes [id number] 400mg Take 400 Univers oxide 420 0-28 11-28 mg by ity of mg Tab 00:00: 05:59 mouth [place] 00 :00 daily for Medical 30 days. Branch KCL 10 mEq 2020-04- Yes [id number] 10meq Take 1 Univers tablet 0-28 11-28 tablet by ity of 00:00: 05:59 mouth [place] 00 :00 daily for Medical 30 days. Branch metoprolol 2020-04- Yes [id number] 50mg Take 1 Univers tartrate 50 0-28 11-28 tablet by it y of mg tablet 00:00: 05:59 mouth 2 [place] 00 :00 (two) Medical times [place] daily for 30 days. warfarin 3 2020-04- Yes [id number] 3mg Take 1 Univers mg tablet 0-28 11-28 tablet by ity of 00:00: 05:59 mouth [place] 00 :00 every Medical Saturday, Branch and Saturday in the evening for 30 days. furosemide 2020-04- Yes [id number] 20mg Take 1 Univers 20 mg 0-28 11-28 tablet by ity of tablet 00:00: 05:59 mouth 2 [place] 00 :00 (two) Medical times [place] daily for 30 days. magnesium 2020-04- Yes [id number] 400mg Take 400 Univers oxide 420 0-28 11-28 mg by ity of mg Tab 00:00: 05:59 mouth [place] 00 :00 daily for Medical 30 days. Branch KCL 10 mEq 2020-04- Yes [id number] 10meq Take 1 Univers tablet 0-28 11-28 tablet by ity of 00:00: 05:59 mouth [place] 00 :00 daily for Medical 30 days. Branch metoprolol 2020-04- Yes [id number] 50mg Take 1 Univers tartrate 50 0-28 11-28 tablet by it y of mg tablet 00:00: 05:59 mouth 2 [place] 00 :00 (two) Medical times [place] daily for 30 days. warfarin 3 2020-04- Yes [id number] 3mg Take 1 Univers mg tablet 0-28 11-28 tablet by ity of 00:00: 05:59 mouth [place] 00 :00 every Medical Saturday, Branch and Saturday in the evening for 30 days. furosemide 2020-04- Yes [id number] 20mg Take 1 Univers 20 mg 0-28 11-28 tablet by ity of tablet 00:00: 05:59 mouth 2 [place] 00 :00 (two) Medical times Branch daily for 30 days. magnesium 2020-04- Yes [id number] 400mg Take 400 Univers oxide 420 0-28 11-28 mg by ity of mg Tab 00:00: 05:59 mouth [place] 00 :00 daily for Medical 30 days. Branch KCL 10 mEq 2020-04- Yes [id number] 10meq Take 1 Univers tablet 0-28 11-28 tablet by ity of 00:00: 05:59 mouth [place] 00 :00 daily for Medical 30 days. Branch metoprolol 2020-04- Yes [id number] 50mg Take 1 Univers tartrate 50 0-28 11-28 tablet by it y of mg tablet 00:00: 05:59 mouth 2 [place] 00 :00 (two) Medical times Branch daily for 30 days. furosemide 2020-04- Yes [id number] 20mg Take 1 Univers 20 mg 0-28 11-28 tablet by ity of tablet 00:00: 05:59 mouth 2 [place] 00 :00 (two) Medical times Branch daily for 30 days. magnesium 2020-04- Yes [id number] 400mg Take 400 Univers oxide 420 0-28 11-28 mg by ity of mg Tab 00:00: 05:59 mouth [place] 00 :00 daily for Medical 30 days. Branch KCL 10 mEq 2020-04- Yes [id number] 10meq Take 1 Univers tablet 0-28 11-28 tablet by ity of 00:00: 05:59 mouth [place] 00 :00 daily for Medical 30 days. Branch metoprolol 2020-04- Yes [id number] 50mg Take 1 Univers tartrate 50 0-28 11-28 tablet by it y of mg tablet 00:00: 05:59 mouth 2 [place] 00 :00 (two) Medical times Branch daily for 30 days. furosemide 2020-04- Yes [id number] 20mg Take 1 Univers 20 mg 0-28 11-28 tablet by ity of tablet 00:00: 05:59 mouth 2 [place] 00 :00 (two) Medical times Branch daily for 30 days. magnesium 2020-04- Yes [id number] 400mg Take 400 Univers oxide 420 0-28 11-28 mg by ity of mg Tab 00:00: 05:59 mouth [place] 00 :00 daily for Medical 30 days. Branch KCL 10 mEq 2020-04- Yes [id number] 10meq Take 1 Univers tablet 0-28 11-28 tablet by ity of 00:00: 05:59 mouth [place] 00 :00 daily for Medical 30 days. Branch metoprolol 2020-04- Yes [id number] 50mg Take 1 Univers tartrate 50 0-28 11-28 tablet by it y of mg tablet 00:00: 05:59 mouth 2 [place] 00 :00 (two) Medical times Branch daily for 30 days. furosemide 2020-04- Yes [id number] 20mg Take 1 Univers 20 mg 0-28 11-28 tablet by ity of tablet 00:00: 05:59 mouth 2 [place] 00 :00 (two) Medical times Branch daily for 30 days. magnesium 2020-04- Yes [id number] 400mg Take 400 Univers oxide 420 0-28 11-28 mg by ity of mg Tab 00:00: 05:59 mouth [place] 00 :00 daily for Medical 30 days. Branch KCL 10 mEq 2020-04- Yes [id number] 10meq Take 1 Univers tablet 0-28 11-28 tablet by ity of 00:00: 05:59 mouth [place] 00 :00 daily for Medical 30 days. Branch metoprolol 2020-04- Yes [id number] 50mg Take 1 Univers tartrate 50 0-28 11-28 tablet by it y of mg tablet 00:00: 05:59 mouth 2 [place] 00 :00 (two) Medical times Branch daily for 30 days. furosemide 2020-04- Yes [id number] 20mg Take 1 Univers 20 mg 0-28 11-28 tablet by ity of tablet 00:00: 05:59 mouth 2 [place] 00 :00 (two) Medical times Branch daily for 30 days. magnesium 2020-04- Yes [id number] 400mg Take 400 Univers oxide 420 0-28 11-28 mg by ity of mg Tab 00:00: 05:59 mouth [place] 00 :00 daily for Medical 30 days. Branch KCL 10 mEq 2020-04- Yes [id number] 10meq Take 1 Univers tablet 0-12 03- tablet by ity of 00:00: 05:59 mouth [place] 00 :00 daily for Medical 30 days. Branch metoprolol 2020-04- Yes [id number] 50mg Take 1 Univers tartrate 50 0-12 03- tablet by it y of mg tablet 00:00: 05:59 mouth 2 [place] 00 :00 (two) Medical times [place] daily for 30 days. furosemide 2020-04- Yes [id number] 20mg Take 1 Univers 20 mg 0-12 03- tablet by ity of tablet 00:00: 05:59 mouth 2 [place] 00 :00 (two) Medical times [place] daily for 30 days. magnesium 2020-04- Yes [id number] 400mg Take 400 Univers oxide 420 0-12 03- mg by ity of mg Tab 00:00: 05:59 mouth [place] 00 :00 daily for Medical 30 days. Branch KCL 10 mEq 2020-04- Yes [id number] 10meq Take 1 Univers tablet 0- tablet by ity of 00:00: 05:59 mouth [place] 00 :00 daily for Medical 30 days. Branch warfarin 3 2020-04- No [id number] 3mg Take 1 Univers mg tablet 0- tablet by ity of 00:00: 00:00 mouth [place] 00 :00 every Medical Saturday, Branch and Saturday in the evening for 30 days. warfarin 2020-04- No 2mg 2 mg, Univers (COUMADIN) 0-02-08 Oral, ONCE it y of tablet 2 mg 22:00: 23:49 AT 1700, 1 [place] 00 :00 dose, On Medical Sat Branch 02/08/21 at 1700, Routine
INR Goal Range: 2.5-3.5&lt ;br>INDICA TION (More than one indication for warfarin can be selected): Mechanical AVR, Atrial fibrillati on/flutter magnesium 2020-04- No 400mg 400 mg, Uni vers oxide 0-08 02- Oral, ity of (MAG-OX 14:00: 22:26 DAILY, [place] 400) tablet 00 :14 First dose Me dical 400 mg on [facility] Branch 02/08/21 at 0900, Until Discontinu ed, Routine warfarin 2020-04- No 2mg 2 mg, Univers (COUMADIN) 0-26 10-26 Oral, ONCE it y of tablet 2 mg 22:00: 22:17 AT 1700, 1 [place] 00 :00 dose, On [facility] 02/07/21 at 1700, Routine
INR Goal Range: 2.5-3.5&lt ;br>INDICA TION (More than one indication for warfarin can be selected): Mechanical AVR, Atrial fibrillati on/flutter digoxin 2020-04 Yes 125ug 125 mcg, Unive rs (LANOXIN) 0-26 Oral, ity of tablet 125 14:00: DAILY, [place] mcg 00 First dose Medical on Sat Branch 02/07/21 at 0900, Until Discontinu ed, Routine digoxin 2020-04- No 250ug 250 mcg, Univ ers (LANOXIN) 0-25 10-25 Intravenou ity of injection 21:00: 21:10 s, ONCE, 1 [place] 250 mcg 00 :00 dose, On [facility] 02/06/21 at 1600, Routine digoxin 2020-04- No .5mg 500 mcg Univer s (LANOXIN) 0-25 10-25 (0.5 mg), ity of injection 14:45: 15:00 Intravenou [place] 500 mcg 00 :00 s, ONCE, 1 Medica l dose, On Branch [facility] 02/06/21 at 0945, Routine atorvastati 2020-04 Yes 40mg 40 mg, Univ ers n (LIPITOR) 0-25 Oral, QHS, it y of tablet 40 02:00: First dose [place] mg 00 on [facility] 02/05/21 Branch at 2100, Until Discontinu ed, Routine metoprolol 2020-04 Yes 50mg 50 mg, Unive rs tartrate 0-25 Oral, BID, ity o f (LOPRESSOR) 01:00: First dose [place] tablet 50 00 (after Medical mg last Branch modificati on) on [place] 02/05/21 at 2000, Until Discontinu ed, Routine pantoprazol 2020-04 Yes 40mg 40 mg, Univ ers e 0-24 Oral, ity of (PROTONIX) 14:00: DAILY, [place] EC tablet 00 First dose Medi tyrone 40 mg on [facility] 02/05/21 at 0900, Until Discontinu ed, Routine lidocaine 2020-04 Yes 1{patch 1 Patch, U nivers (LIDODERM) 0-24 } Topical, ity o f 5 % (700 14:00: Administer Babak as mg/patch) 00 over 12 Medical patch 1 Hours, Branch Patch DAILY, First dose on [place] 02/05/21 at 0900, Until Discontinu ed, Routine aspirin 2020-04 Yes 81mg 81 mg, Univers chewable 0-24 Oral, ity of tablet 81 14:00: DAILY, [place] mg 00 First dose Medical on [facility] 02/05/21 at 0900, Until Discontinu ed, Routine furosemide 2020-04 Yes 20mg 20 mg, Unive rs (LASIX) 0-24 Slow IV ity of injection 13:45: Push, [place] 20 mg 00 Q12H, Medical First dose Branch on [place] 02/05/21 at 0845, Until Discontinu ed, Routine gabapentin 2020-04 Yes 300mg 300 mg, Uni vers (NEURONTIN) 0-24 Oral, TID, it y of capsule 300 13:00: First dose [place] mg 00 on [facility] 02/05/21 Branch at 0800, Until Discontinu ed, Routine metoprolol 2020-04- No 25mg 25 mg, Univ ers tartrate 0-24 10-24 Oral, BID, ity of (LOPRESSOR) 13:00: 15:33 First dose [place] tablet 25 00 :46 on [facility] mg 02/05/21 Branch at 0800, Until Discontinu ed, Routine FENTanyl PF 2020-04- No 50ug 50 mcg, Un [facility]ong (SUBLIMAZE 0-24 10- Slow IV ity o f (PF)) 07:18: 14:00 Push, [place] injection 28 :56 Q4HPRN, Medical 50 mcg Starting Branch on [place] 02/05/21 at 0218, Until [place] 02/09/21 at 0900, Routine, breakthrou gh iohexol 2020-04- No [id number] 100mL 100 mL, [facility] (OMNIPAQUE 0-24 10-24 Intravenou it y of 350 07:15: 07:03 s, ONCE, 1 [place] BULK-100 00 :00 dose, On Medical mL) [place] Branch injection 02/05/21 100 mL at 0215, Routine HYDROcodone 2020-04 Yes 1{tbl} 1 tablet, Univers -acetaminop 0-24 Oral, ity of hen (NORCO) 06:07: Q6HPRN, [place] as 10-325 mg 25 Starting Medica l tablet 1 on [place] Branch tablet 02/05/21 at 0107, Until Discontinu ed, Routine, Pain (scale 7-10) warfarin 2 Yes [id number] 2mg Take 1 [facility] mg tablet 9-20 tablet by ity o f 00:00: mouth [place] 00 every Medical evening. Branch Take 1 tablet by mouth 7 days a week. warfarin 2 2020- No [id number] 2mg Take 1 U nivers mg tablet 9-20 10-28 tablet by ity of 00:00: 00:00 mouth [place] 00 :00 every Medical evening. Branch Take 1 tablet by mouth 7 days a week. atorvastati Yes [id number] 40mg Take 1 Univers n 40 mg 6-25 tablet by ity of tablet 00:00: mouth at [place] [address] bedtime. Medical Branch atorvastati Yes [id number] 40mg Take 1 Univers n 40 mg 6-25 tablet by ity of tablet 00:00: mouth at [place] [address] bedtime. Medical Branch atorvastati Yes [id number] 40mg Take 1 Univers n 40 mg 6-25 tablet by ity of tablet 00:00: mouth at [place] [address] bedtime. Medical Branch atorvastati Yes [id number] 40mg Take 1 Univers n 40 mg 6-25 tablet by ity of tablet 00:00: mouth at [place] [address] bedtime. Medical Branch atorvastati Yes [id number] 40mg Take 1 Univers n 40 mg 6-25 tablet by ity of tablet 00:00: mouth at [place] [address] bedtime. Medical Branch atorvastati Yes [id number] 40mg Take 1 Univers n 40 mg 6-25 tablet by ity of tablet 00:00: mouth at [place] [address] bedtime. Medical Branch atorvastati Yes [id number] 40mg Take 1 Univers n 40 mg 6-25 tablet by ity of tablet 00:00: mouth at [place] [address] bedtime. Medical Branch atorvastati 0 Yes [id number] 40mg Take 1 Univers n 40 mg 6-25 tablet by ity of tablet 00:00: mouth at [place] bedtime. Medical Branch atorvastati 0 Yes [id number] 40mg Take 1 Univers n 40 mg 6-25 tablet by ity of tablet 00:00: mouth at [place] bedtime. Medical Branch atorvastati Yes [id number] 40mg Take 1 Univers n 40 mg 6-25 tablet by ity of tablet 00:00: mouth at [place] bedtime. Medical Branch atorvastati Yes [id number] 40mg Take 1 Univers n 40 mg 6-25 tablet by ity of tablet 00:00: mouth at [place] bedtime. Medical Branch atorvastati Yes [id number] 40mg Take 1 Univers n 40 mg 6-25 tablet by ity of tablet 00:00: mouth at [place] bedtime. Medical Branch atorvastati Yes [id number] 40mg Take 1 Univers n 40 mg 6-25 tablet by ity of tablet 00:00: mouth at [place] [place] bedtime. [facility] Branch atorvastati Yes [id number] 40mg Take 1 Univers n 40 mg 6-25 tablet by ity of tablet 00:00: mouth at [place] bedtime. Medical Branch atorvastati Yes [id number] 40mg Take 1 Univers n 40 mg 6-25 tablet by ity of tablet 00:00: mouth at [place] [address] bedtime. Medical Branch sotaloL 80 2020-0 Yes [...] Medical times Branch daily. sotaloL 80 2020-0 2020- No 80mg Take 1 Univ ers mg tablet 5-26 10-28 tablet by ity of 00:00: 00:00 mouth 2 00 :00 (two) Medical times Branch daily. warfarin 2 Yes Atrial 2mg Take 1 Uni vers mg tablet 4-08 flutter, tablet by i ty of 00:00: unspecified mouth 00 type every Medical evening. Branch Take 1 tablet by mouth 7 days a week. warfarin 2 2020- Yes [id number] 2mg Take 1 Un chong mg tablet 4-08 tablet by ity o f 00:00: mouth [place] 00 every Medical evening. Branch Take 1 tablet by mouth 7 days a week. warfarin 2 2020- Yes [id number] 2mg Take 1 Un chong mg tablet 4-08 tablet by ity o f 00:00: mouth [place] 00 every Medical evening. Branch Take 1 tablet by mouth 7 days a week. warfarin 2 2020-0 Yes [id number] 2mg Take 1 Un chong mg tablet 4-08 tablet by ity o f 00:00: mouth [place] 00 every Medical evening. Branch Take 1 tablet by mouth 7 days a week. warfarin 2 2020-0 Yes [id number] 2mg Take 1 Un chong mg tablet 4-08 tablet by ity o f 00:00: mouth [place] 00 every Medical evening. Branch Take 1 tablet by mouth 7 days a week. warfarin 2 2020-0 Yes [id number] 2mg Take 1 Un chong mg tablet 4-08 tablet by ity o f 00:00: mouth [place] 00 every Medical evening. Branch Take 1 tablet by mouth 7 days a week. warfarin 2 0 2020- No [id number] 2mg Take 1 U nivers mg tablet 07-21-20 tablet by ity of 00:00: 00:00 mouth [place] 00 :00 every Medical evening. Branch Take 1 tablet by mouth 7 days a week. sotaloL 80 2019-04 Yes 80mg Take 1 Unive rs mg tablet 1-17 tablet by ity o f 00:00: mouth 2 (two) Medical times Branch daily. atorvastati 2019-04 Yes Mixed 40mg Take 1 Uni vers n 40 mg 1-17 hyperlipide tablet by ity of tablet 00:00: darion mouth at [place] 00 bedtime. Medical Branch gabapentin 2016- Yes Take by Uni vers 300 mg 4-21 mouth ity of capsule 00:00: daily. [place] [facility] HYDROcodone 2016-0 Yes Univer s -acetaminop 4-21 ity of hen 10-325 00:00: [place] mg tablet 00 Medical Branch lidocaine 5 2016-0 Yes Univer s % (700 4-21 ity of mg/patch) 00:00: [place] patch 00 Medical Branch zolpidem 10 2016-0 Yes Univer s mg tablet 4-21 ity of 00:00: [place] 00 Medical Branch gabapentin 2017-0 Yes Take by Uni vers 300 mg 4-21 mouth ity of capsule 00:00: daily. [place] [facility] HYDROcodone 2017-0 Yes Univer s -acetaminop 4-21 ity of hen 10-325 00:00: [place] mg tablet 00 Medical Branch lidocaine 5 2017-0 Yes Univer s % (700 4-21 ity of mg/patch) 00:00: [place] patch 00 Medical Branch zolpidem 10 2017-0 Yes Univer s mg tablet 4-21 ity of 00:00: [place] [facility] gabapentin 2017-0 Yes Take by Uni vers 300 mg 4-21 mouth ity of capsule 00:00: daily. [place] [facility] HYDROcodone 2017-0 Yes Univer s -acetaminop 4-21 ity of hen 10-325 00:00: [place] mg tablet 00 Medical Branch lidocaine 5 2017-0 Yes Univer s % (700 4-21 ity of mg/patch) 00:00: [place] patch 00 Medical Branch zolpidem 10 2017-0 Yes Univer s mg tablet 4-21 ity of 00:00: [place] [facility] gabapentin 2017-0 Yes Take by [...] mg tablet 4-21 ity of 00:00: [place] [facility] Branch gabapentin 2017-0 Yes Take by Uni vers 300 mg 4-21 mouth ity of capsule 00:00: daily. Medical Branch HYDROcodone 2017-0 Yes Univer s -acetaminop 4-21 ity of hen 10-325 00:00: [place] mg tablet Medical Branch lidocaine 5 2017-0 Yes Univer s % (700 4-21 ity of mg/patch) 00:00: [place] patch Medical Branch zolpidem 10 2016-0 Yes Univer s mg tablet 4-21 ity of 00:00: [place] [facility] Branch gabapentin 2017-0 Yes Take by [...] s mg tablet 4-21 ity of 00:00: [place] [facility] gabapentin 2017-0 Yes Take by [...] 4-21 mouth ity of capsule 00:00: daily. [place] [facility] lidocaine 5 2017-0 Yes Univer s % (700 4-21 ity of mg/patch) 00:00: [place] patch 00 Medical Branch gabapentin 2017-0 Yes Take by Uni vers 300 mg 4-21 mouth ity of capsule 00:00: daily. [place] [facility] lidocaine 5 2017-0 Yes Univer s % (700 4-21 ity of mg/patch) 00:00: [place] patch 00 Medical Branch gabapentin 2017-0 Yes Take by Uni vers 300 mg 4-21 mouth ity of capsule 00:00: daily. [place] [facility] lidocaine 5 2017-0 Yes Univer s % (700 4-21 ity of mg/patch) 00:00: [place] patch Medical Branch gabapentin 2017-0 Yes Take by Uni vers 300 mg 4-21 mouth ity of capsule 00:00: daily. [place] [facility] lidocaine 5 2017-0 Yes Univer s % (700 4-21 ity of mg/patch) 00:00: [place] patch Medical Branch gabapentin 2017-0 Yes Take by Uni vers 300 mg 4-21 mouth ity of capsule 00:00: daily. [place] [facility] lidocaine 5 2017-0 Yes Univer s % (700 4-21 ity of mg/patch) 00:00: [place] patch Medical Branch gabapentin 2017-0 Yes Take by Uni vers 300 mg 4-21 mouth ity of capsule 00:00: daily. [place] [facility] lidocaine 5 2017-0 Yes Univer s % (700 4-21 ity of mg/patch) 00:00: [place] patch Medical Branch gabapentin 2017-0 Yes Take by Uni vers 300 mg 4-21 mouth ity of capsule 00:00: daily. [place] [facility] lidocaine 5 2017-0 Yes Univer s % (700 4-21 ity of mg/patch) 00:00: [place] patch 00 Medical Branch gabapentin 2017-0 Yes Take by Uni vers 300 mg 4-21 mouth ity of capsule 00:00: daily. [place] [facility] lidocaine 5 2017-0 Yes Univer s % (700 4-21 ity of mg/patch) 00:00: [place] patch 00 Medical Branch zolpidem 10 2016-0 Yes Univer s mg tablet 08-03 ity of 00:00: [place] 00 Medical Branch zolpidem 10 2016-0 2020- No Unive rs mg tablet 08-03 ity of 00:00: 00:00 [place] 00 :00 Medical Branch HYDROcodone 2017-0 2020- No Unive rs -acetaminop 08-03 ity of hen 10-325 00:00: 00:00 [place] mg tablet 00 :00 Medical Branch pantoprazol 2017-0 Yes Univer s e 40 mg EC 4-14 ity of tablet 00:00: [place] 00 Medical Branch pantoprazol 2017-0 Yes Univer s e 40 mg EC 4-14 ity of tablet 00:00: [place] [facility] pantoprazol 2017-0 Yes Univer s e 40 mg EC 4-14 ity of tablet 00:00: [place] [id number] Medical Branch pantoprazol 2017-0 Yes Univer s e 40 mg EC 4-14 ity of tablet 00:00: [place] [facility] pantoprazol 2017-0 Yes Univer s e 40 mg EC 4-14 ity of tablet 00:00: [place] 00 Medical Branch pantoprazol 2017-0 Yes Univer s e 40 mg EC 4-14 ity of tablet 00:00: [place] [facility] pantoprazol 2017-0 Yes Univer s e 40 mg EC 4-14 ity of tablet 00:00: [place] [facility] pantoprazol 2017-0 Yes Univer s e 40 mg EC 4-14 ity of tablet 00:00: [place] [facility] pantoprazol 2017-0 Yes Univer s e 40 mg EC 4-14 ity of tablet 00:00: [place] 00 Medical Branch pantoprazol 2017-0 Yes Univer s e 40 mg EC 4-14 ity of tablet 00:00: [place] [facility] pantoprazol 2017-0 Yes Univer s e 40 mg EC 4-14 ity of tablet 00:00: [place] [facility] pantoprazol 2017-0 Yes Univer s e 40 mg EC 4-14 ity of tablet 00:00: [place] [facility] pantoprazol 2017-0 Yes Univer s e 40 mg EC 4-14 ity of tablet 00:00: [place] 00 Medical Branch pantoprazol 2017-0 Yes Univer s e 40 mg EC 4-14 ity of tablet 00:00: [place] 00 Medical Branch pantoprazol 2017-0 Yes Univer s e 40 mg EC 4-14 ity of tablet 00:00: [place] 00 Medical Branch pantoprazol 2017-0 Yes Univer s e 40 mg EC 4-14 ity of tablet 00:00: [place] 00 Medical Branch aspirin 81 2015-04 Yes [...] [place] 00 daily. Medical Branch aspirin 81 2016 Yes 81mg Take 1 Unive rs mg [...] mouth [place] 00 daily. Medical Branch ferrous 2015-2020- No 325mg Take 1 Univer s sulfate 325 0-26 10-28 tablet by it y of mg (65 mg 00:00: 00:00 [place] 3 [place] iron) 00 :00 (three) Medical tablet times Branch daily with meals. NITROGLYCER Yes 1 Tab SL Un chong IN 0.4 MG 1-16 Q5MIN PRN ity o f SL SUBL 00:00: [place] 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 Yes 1 Tab SL Un chong IN 0.4 MG 1-16 Q5MIN PRN ity o f SL SUBL 00:00: [place] 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 Yes 1 Tab SL Un chong IN 0.4 MG 1-16 Q5MIN PRN ity o f SL SUBL 00:00: [place] 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 Yes 1 Tab SL Un chong IN 0.4 MG 1-16 Q5MIN PRN ity o f SL SUBL 00:00: [place] 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 Yes 1 Tab SL Un chong IN 0.4 MG 1-16 Q5MIN PRN ity o f SL SUBL 00:00: [place] 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 Yes 1 Tab SL Un chong IN 0.4 MG 1-16 Q5MIN PRN ity o f SL SUBL 00:00: [place] 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 Yes 1 Tab SL Un chong IN 0.4 MG 1-16 Q5MIN PRN ity o f SL SUBL 00:00: [place] 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 2006-2020- No 1 Tab SL U nivers IN 0.4 MG 1-16 10-28 Q5MIN PRN ity of SL SUBL 00:00: 00:00 [place] 00 :00 Medical Branch Vital Signs Vital Name Observation Time Observation Value Comments Source Systolic blood 2021-02-09 17:00:00 112 mm[Hg] Univer sity of pressure [facility] Diastolic blood 2021-02-09 17:00:00 67 mm[Hg] Unive rsity of pressure [facility] Heart rate 2021-02-09 17:00:00 78 /min Universi ty [facility] Respiratory rate 2021-02-09 17:00:00 28 /min Univ ersity [facility] Oxygen saturation in 2021-02-09 17:00:00 72 /min [facility] Arterial blood by [facility] Pulse oximetry Branch Body temperature 2021-02-09 16:31:00 35.61 Allie [facility] Body height 2021-02-09 10:00:00 160 cm [facility] Body weight 2021-02-09 10:00:00 48.49 kg [facility] BMI 2021-02-09 10:00:00 18.94 kg/m2 [facility] Procedures Procedure Date / Time Performing Clinician Source Performed PROTHROMBIN TIME / INR 2021-02-24 15:42:00 [place] Dan [facility] ASSIGNMENT OF BENEFITS 2021-02-15 14:42:35 Doctor Unassigned, Un [facility] Angus [facility] MAGNESIUM 2021-02-09 10:11:00 Wally [facility] BASIC METABOLIC PANEL 2021-02-09 10:11:00 Jayshree [facility] (NA, K, CL, CO2, GLUCOSE, Medica l Branch BUN, CREATININE, CA) PROTHROMBIN TIME / INR 2021-02-09 10:11:00 Jennifer Lo [facility] PROTHROMBIN TIME / INR 2021-02-08 09:28:00 Yadira Ga [facility] MAGNESIUM 2021-02-08 09:27:00 Wally [facility] [place] [facility] BASIC METABOLIC PANEL 2021-02-08 09:27:00 Jayshree [facility] (NA, K, CL, CO2, GLUCOSE, Medica l Branch BUN, CREATININE, CA) N-TERMINAL PRO-BNP 2021-02-08 09:27:[address] [facility] FERRITIN SERUM 2021-02-07 20:45:00 Wally [facility] [place] [facility] IRON 2021-02-07 20:45:00 Wally [facility] [place] [facility] TOTAL IRON BINDING 2021-02-07 20:45:00 Wally [facility] MAGNESIUM 2021-02-07 09:33:00 Wally [facility] [place] [facility] BASIC METABOLIC PANEL 2021-02-07 09:33:00 Wally [facility] (NA, K, CL, CO2, GLUCOSE, Medica l Branch BUN, CREATININE, CA) CBC WITHOUT DIFF 2021-02-07 09:33:00 Wally [facility] PROTHROMBIN TIME / INR 2021-02-07 09:33:00 Wlaly [facility] N-TERMINAL PRO-BNP 2021-02-07 09:33:[address] [facility] MAGNESIUM 2021-02-06 10:12:00 Wally [facility] [place] [facility] BASIC METABOLIC PANEL 2021-02-06 10:12:00 Wally [facility] (NA, K, CL, CO2, GLUCOSE, Medica l Branch BUN, CREATININE, CA) PROTHROMBIN TIME / INR 2021-02-06 10:12:00 Wally [facility] MAGNESIUM 2021-02-05 16:00:00 Wally [facility] [place] [facility] BASIC METABOLIC PANEL 2021-02-05 16:00:00 Wally [facility] (NA, K, CL, CO2, GLUCOSE, Medica l Branch BUN, CREATININE, CA) CBC WITHOUT DIFF 2021-02-05 15:59:00 Wally [facility] PROTHROMBIN TIME / INR 2021-02-05 15:59:00 Wally [facility] COVID-19 (MOLECULAR 2021-02-05 10:56:[address] [facility] NUCLEIC ACID AMPLIFICATION) LAB ONLY COVID 2021-02-05 10:56:00 Wilber Flowers [facility] CT ABDOMEN PELVIS W 2021-02-05 07:11:10 Wilber Flowers [facility] CONTRAST [facility] MRSA / MSSA SCREEN BY 2021-02-05 06:39:00 Wilber Flowers [facility] PCR, [facility] [place] COVID-19 (ID NOW RAPID 2021-02-05 03:51:00 Jamie Deng [facility] TESTING) Medical Branch LAB ONLY COVID 2021-02-05 03:51:00 Singer [facility] INTERPRETATION [facility] XR CHEST 1 VW 2021-02-05 02:16:33 Singer [facility] Medical [place] LIPASE 2021-02-05 02:10:[address] [facility] MAGNESIUM 2021-02-05 02:10:[address] [facility] TROPONIN I 2021-02-05 02:10:[address] [facility] COMP. METABOLIC PANEL 2021-02-05 02:10:00 Singer [facility] ([id number]) [facility] CBC WITH DIFF 2021-02-05 02:10:[address] [facility] PROTHROMBIN TIME / INR 2021-02-05 02:10:00 Singer [facility] N-TERMINAL PRO-BNP 2021-02-05 02:10:00 Singer [facility] ECG ROUTINE & RHYTHM 2021-02-05 01:58:06 Singer [facility] ASSIGNMENT OF BENEFITS 2021-01-02 16:35:43 Doctor Unassigned, Un [facility] Angus Medical Branch Plan of Care Planned Activity Planned Date Details Comments Source Future Scheduled 2021-03-29 [facility] (procedure) [code = Medical Branch 425444278] Future Scheduled 2020-12-14 INFLUENZA VACCINE [facility] Test 00:00:00 (Season Ended) [code = Medic al Branch INFLUENZA VACCINE (Season Ended)] Future Scheduled 2020-10-29 Screening for [facility] Test 00:00:00 malignant neoplasm of Medica l Branch breast (procedure) [code = 112623235] Future Scheduled 2018 Medicare Annual [facility] Test 00:00:00 Wellness Visit Medical [facility] h (procedure) [code = 258660601256845] Future Scheduled 2018 Screening for [facility] Test 00:00:00 osteoporosis Medical Branch (procedure) [code = 229773449] Future Scheduled 2018 PNEUMOCOCCAL VACCINES Un [facility] Test 00:00:00 65+ (1 of 1 - PPSV23) Medica l Branch [code = PNEUMOCOCCAL VACCINES 65+ (1 of 1 - PPSV23)] Future Scheduled 2017-02-05 Screening for occult Uni [facility] Test 00:00:00 blood in feces Medical [facility] h (procedure) [code = 348958642] Future Scheduled 2017-02-05 Screening for [facility] Test 00:00:00 malignant neoplasm of Medica l Branch colon (procedure) [code = 663392972] Future Scheduled 2003 Stool DNA-based [facility] Test 00:00:00 colorectal cancer Medical Br anch screening (procedure) [code = 240592180143848] Future Scheduled 2003 Flexible fiberoptic Univ [facility] Test 00:00:00 sigmoidoscopy Medical Branch (procedure) [code = 31510693] Future Scheduled 2003 Screening for [facility] Test 00:00:00 malignant neoplasm of Medica l Branch colon (procedure) [code = 728552277] Future Scheduled 2003 [facility] Re[facility] Test 00:00:00 Vaccine (SHINGRIX) (1 Medica l Branch of 2) [code = Zoster Recombinant Vaccine (SHINGRIX) (1 of 2)] Future Scheduled 1972 DTaP,Tdap,and Td [facility] Test 00:00:00 Vaccines (1 - Tdap) Medical Branch [code = DTaP,Tdap,and Td Vaccines (1 - Tdap)] Future Scheduled 1971 [facility] (procedure) [code = Medical Branch 404059715] Future Scheduled 1969 SARS-[facility]-2 (COVID-19) [facility]:00 Vaccine (1) [code = Medical Branch SARS-CoV-2 (COVID-19) Vaccine (1)] Encounters Start End Encounter Admission Attending Care Care Encounter Source Date/Time Date/Time Type Type Clinicians Facility Department ID 2021-05-26 2021-05-26 Outpatient R [facility] [id number] Univers 10:20:00 10:20:00 [place] [id number] ity o f [facility] 2021-05-26 2021-05-26 Outpatient R [facility] [id number] Univers 10:20:00 10:20:00 [place] scotty o f [facility] 2021-02-24 2021-02-24 Outpatient R [facility] [id number] Univers 10:45:00 10:45:00 [id number] ity of [facility] 2021-02-24 2021-02-24 [facility] [id number] Univers 10:45:00 10:45:00 [place] scot[place] o f [facility] 2021-02-24 2021-02-24 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, Adc Lab Main [facility] 1.2.8 [id number] [id number] Univers 09:17:46 09:32:46 Visit [place] DanJAVIER [id number] ity of [id number] [phone] Ne dical [facility] 353 [facility] 2021-02-24 2021-02-24 Telephone [facility] [id number] Univers 00:00:00 00:00:00 [place] CAMPTON [id number] ity [id number] [phone] Ne dicwa NAL [address] [place] [address] 2021-02-24 2021-02-24 Telephone [facility] [id number] Univers 00:00:00 00:00:00 Catrinairiszaheer [place] [id number] ity of [place] [id number] [phone] Ne dical NAL [address] [place] [address] 2021-02-24 2021-02-24 Telephone [facility] [id number] Univers 00:00:00 00:00:00 [place] CAM[place] [id number] [place]y [id number] [phone] Ne dical NAL [address] [place] [address] 2021-02-15 2021-02-15 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, Adc Lab Main [facility] 1.2.8 40.114 [id number] Univers 09:47:39 10:02:39 Visit Aletha [place] ARANDA [id number] ity [facility] [id number] [phone] Ne dical NAL 353 [facility] 2021-02-15 2021-02-15 Outpatient R [facility] [id number] Univers 09:45:00 09:45:00 [id number] ity of [facility] 2021-02-15 2021-02-15 [facility] [id number] Univers 09:45:00 09:45:00 [place] scotty o f [facility] 2021-02-15 2021-02-15 Orders Doctor JOHANN [id number] [id number] Univers 00:00:00 00:00:00 Only Unassigned, MIKE [id number] ity of Angus [facility] [id number] Babak as [phone] [facility] 009 [place] 2021-02-15 2021-02-15 Telephone AlethaRUST [id number] Univers 00:00:00 00:00:00 [place] ARANDA [id number] ity [facility] [id number] [phone] Ne dical NAL 059 [facility] 2021-02-10 2021-02-10 Transition DONNY GamezYandy 1.2.840.114 [id number] Univers 00:00:00 00:00:00 of Care Georgie SAMANIEGO [id number] [id number] [phone] [facility] 403 Branch 2021-02-04 2021-02-09 Inpatient X WALLY [facility] BERENICE [id number] Univers 20:57:00 13:26:00 JENNIFER ity of [facility] 2021-02-04 2021-02-09 [facility] Jamie Deng [facility] [id number] Univers 20:57:00 13:26:00 Encounter Wilber Flowers [id number] ity of [place] [id number] [facility] [phone] [facility] 080 [place] 2021-01-02 2021-01-02 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, Adc Lab Main [facility] 1.2.8 40.114 [id number] Univers 11:35:12 11:50:12 Visit [place] Dan [id number] it[place] of [id number] [phone] Ne dical nal 353 [facility] 2021-01-02 2021-01-02 Outpatient R [facility] [id number] Univers 11:45:00 11:45:00 [id number] ity of [facility] 2021-01-02 2021-01-02 [facility] [id number] Univers 11:45:00 11:45:00 [place] scotty o f [facility] 2021-01-02 2021-01-02 Orders Doctor JOHANN [id number] [id number] Univers 00:00:00 00:00:00 Only Unassigned, MIKE [id number] ity of Angus [facility] [id number] Babak as [phone] [facility] 009 [place] 2021-01-02 2021-01-02 Telephone AlethaRUST [id number] Univers 00:00:00 00:00:00 [place] Aranda [id number] [id number] [phone] Ne dical nal 059 [facility] 2021-01-02 2021-01-02 Refill AlethaRUST 1.2.840.114 [id number] Univers 00:00:00 00:00:00 [place] Aranda [id number] [place] of [id number] [phone] Ne dical nal 059 [facility] 2020-12-07 2020-12-07 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, Adc Lab Main [facility] 1.2.8 40.114 [id number] Univers 08:05:37 08:20:37 Visit [place] Dan [id number] ity of [id number] [phone] Ne dical nal 353 [facility] 2020-12-07 2020-12-07 Outpatient [facility] [id number] Univers 08:00:00 08:00:00 [id number] ity [facility] 2020-12-07 2020-12-07 Outpatient R ALETHA, [facility] [id number] Univers 08:00:00 08:00:00 [place] perez o [facility] 2020-12-07 2020-12-07 Telephone Aletha, [facility] [id number] Univers 00:00:00 00:00:00 [place] [id number] ity [facility] [id number] [phone] [facility] 059 [facility] 2020-11-23 2020-11-23 Outpatient R ALETHA, [facility] [id number] Univers 13:37:45 23:59:00 [place] perez o [facility] 2020-11-23 2020-11-23 Outpatient R ALETHA, [facility] [id number] Univers 14:00:00 14:00:00 [place] [id number] tylery o [facility] 2020-11-14 2020-11-14 Outpatient R ALETHA, [facility] [id number] Univers 13:40:00 13:40:00 [place] [id number] ity o [facility] 2020-11-14 2020-11-14 Outpatient R ALETHA, [facility] [id number] Univers 13:40:00 13:40:00 CATRINAJUAN scotty o [facility] 2020-10-12 2020-10-12 Outpatient R [facility] [id number] Univers 08:00:00 08:00:00 [id number] ity [facility] 2020-10-12 2020-10-12 Outpatient R ALETHA, [facility] [id number] Univers 08:00:00 08:00:00 [place] perez o [facility] 2020-09-27 2020-09-27 Outpatient R ALETHA, [facility] [id number] Univers 13:00:00 13:00:00 [place] [id number] tylery o [facility] 2020-09-27 2020-09-27 Outpatient R ALETHA, [facility] [id number] Univers 13:00:00 13:00:00 [place] perez o [facility] 2020-09-22 2020-09-22 Outpatient R [facility] [id number] Univers 09:30:00 09:30:00 [id number] [facility] 2020-09-22 2020-09-22 Outpatient R ALETHA, [facility] [id number] Univers 09:30:00 09:30:00 [place] perez o [facility] 2020-09-07 2020-09-07 Outpatient R [facility] [id number] Univers 08:45:00 08:45:00 [id number] [facility] 2020-09-07 2020-09-07 Outpatient R ALETHA, [facility] [id number] Univers 08:45:00 08:45:00 [place] perez o [facility] 2020-08-19 2020-08-19 Outpatient R [facility] [id number] Univers 08:45:00 08:45:00 [id number] [facility] 2020-08-19 2020-08-19 Outpatient R ALETHA, [facility] [id number] Univers 08:45:00 08:45:00 [place] perez o [facility] 2020-08-15 2020-08-15 Outpatient [facility] [id number] Univers 10:45:00 10:45:00 [id number] [facility] 2020-08-15 2020-08-15 Outpatient R ALETHA, [facility] [id number] Univers 10:45:00 10:45:00 [place] perez o [facility] 2020-08-08 2020-08-08 Outpatient R [facility] [id number] -[id number] Univers 11:45:00 11:45:00 [id number] [facility] 2020-08-08 2020-08-08 [facility] [id number] Univers 11:45:00 11:45:00 [place] hayes [facility] 2020-08-08 2020-08-08 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 Andre Osei [facility] 1.2.840.114 [id number] 11:14:44 11:29:44 Visit Lab Main [place] 350.1.13.10 [place] 4.2.7.2.686 Professio [phone] nal 353 [facility] 2020-08-08 2020-08-08 Orders Doctor JOHANN 1.2.840.114 [id number] 00:00:00 00:00:00 Only Unassigned, MIKE 350.1.13.10 Angus [facility] 4.2.7.2.686 [id number] 009 2020-08-08 2020-08-08 Telephone [facility] 1.2.178.474 [id number] 00:00:00 00:00:00 [place] 350.1.13.10 [place] 4.2.7.2.686 Professio [phone] [facility] 059 [facility] 2020-07-25 2020-07-25 Telephone [facility] [id number] 00:00:00 00:00:00 [place] 350.1.13.10 [place] 4.2.7.2.686 Professio [phone] nal 059 [facility] 2020-07-20 2020-07-20 Outpatient R [facility] [id number] -20 Univers 11:45:00 11:45:00 [id number] [facility] 2020-07-20 2020-07-20 [facility] [id number] Univers 11:45:00 11:45:00 CATRINAIRISZAHEER ana hayes [facility] 2020-07-20 2020-07-20 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 [facility] 1.2.840.114 [id number] 10:37:03 10:52:03 Visit Lab Main [place] 350.1.13.10 [place] 4.2.7.2.686 Professio [phone] nal 353 [facility] 2020-07-20 2020-07-20 Orders Doctor JOHANN 1.2.840.114 [id number] 00:00:00 00:00:00 Only Unassigned, MIKE 350.1.13.10 Angus [facility] 4.2.7.2.686 [id number] 009 2020-07-20 2020-07-20 Telephone AlethaRUST 1.2.384.711 [id number] 00:00:00 00:00:00 [place] Ar[place] 350.1.13.10 [place] 4.2.7.2.686 Professio [phone] [address] 2020-07-13 2020-07-13 Outpatient R [facility] [id number] -20 Univers 10:15:00 10:15:00 [id number] ity [facility] 2020-07-13 2020-07-13 [facility] [id number] Univers 10:15:00 10:15:00 [place] perez o f [facility] 2020-07-13 2020-07-13 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, [facility] 1.2.840.114 [id number] 09:23:20 09:38:20 Visit Lab Main Yehuda 350.1.13.10 Bhavya 4.2.7.2.686 Professio [phone] [address] 2020-07-13 2020-07-13 Telephone AlethaRUST [id number] 00:00:00 00:00:00 [place] Ar[place] 350.1.13.10 [place] 4.2.7.2.686 Professio [phone] [address] 2020-06-19 2020-06-19 Telephone Aletha [facility] [id number] 00:00:00 00:00:00 [place] Ar[place] 350.1.13.10 [place] 4.2.7.2.686 Professio [phone] [address] 2020-06-17 2020-06-17 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13.10 [place] 4.2.7.2.686 Professio [phone] nal 059 [facility] 2020-06-07 2020-06-07 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 Andre Osei [facility] 1.2.840.114 [id number] 08:57:47 09:12:47 Visit Lab Main [place] 350.1.13.10 [place] 4.2.7.2.686 Professio [phone] nal 353 [facility] 2020-06-07 2020-06-07 Outpatient R [facility] [id number] -20 Univers 09:00:00 09:00:00 [id number] [facility] 2020-06-07 2020-06-07 [facility] [id number] Univers 09:00:00 09:00:00 [place] perez o [facility] 2020-05-23 2020-05-23 Outpatient R [facility] [id number] Univers 09:15:00 09:15:00 [id number] [facility] 2020-05-23 2020-05-23 [facility] [id number] Univers 09:15:00 09:15:00 ROGERZAHEER tylery o [facility] 2020-05-16 2020-05-16 Outpatient R [facility] [id number] Univers 11:30:00 11:30:00 [id number] [facility] 2020-05-16 2020-05-16 Outpatient R ALETHA [facility] [id number] Univers 11:30:00 11:30:00 [place] perez o f [facility] 2020-05-16 2020-05-16 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 [facility] 1.2.840.114 [id number] 11:09:17 11:24:17 Visit Lab Main [place] 350.1.13.10 [place] 4.2.7.2.686 Professio [phone] nal 353 [facility] 2020-05-16 2020-05-16 Orders Doctor JOHANN 1.2.840.114 [id number] 00:00:00 00:00:00 Only Unassigned, MIKE 350.1.13.10 Angus [facility] 4.2.7.2.686 [id number] 009 2020-05-16 2020-05-16 Telephone Aletha [facility] 1.2.159.442 [id number] 00:00:00 00:00:00 [place] Ar[place] 350.1.13.10 [place] 4.2.7.2.686 Professio [phone] nal 059 [facility] 2020-05-11 2020-05-11 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 [facility] 1.2.840.114 [id number] 09:25:07 09:40:07 Visit Lab Main [place] 350.1.13.10 [place] 4.2.7.2.686 Professio [phone] [facility] 353 [facility] 2020-05-11 2020-05-11 Outpatient R [facility] [id number] -20 Univers 09:30:00 09:30:00 [id number] [facility] 2020-05-11 2020-05-11 Outpatient R JEREMIAS [facility] [id number] Univers 09:30:00 09:30:00 SENDIL [facility] 2020-05-11 2020-05-11 Telephone AlethaRUST 1.2.203.702 [id number] 00:00:00 00:00:00 [place] Ar[place] 350.1.13.10 [place] 4.2.7.2.686 Professio [phone] [facility] 2020-05-11 2020-05-11 Telephone [facility] [id number] 00:00:00 00:00:00 [place] 350.1.13.10 [place] 4.2.7.2.686 Professio [phone] [address] 2020-05-04 2020-05-04 Telephone [facility] 1.2.049.074 [id number] 00:00:00 00:00:00 [place] 350.1.13.10 [place] 4.2.7.2.686 Professio [phone] [address] 2020-05-03 2020-05-03 Outpatient R [facility] [id number] -[id number] Univers 11:30:00 11:30:00 [id number] ity [facility] 2020-05-03 2020-05-03 [facility] [id number] 007 [facility] 11:30:00 11:30:00 [place] perez o f [facility] 2020-05-03 2020-05-03 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 [facility] 1.2.840.114 [id number] 10:05:00 10:20:00 Visit Lab Main [place] 350.1.13.10 [place] 4.2.7.2.686 Professio [phone] [address] 2020-05-03 2020-05-03 Orders Doctor JOHANN 1.2.840.114 [id number] 00:00:00 00:00:00 Only Unassigned, MIKE 350.1.13.10 [facility] 4.2.7.2.686 [id number] 009 2020-04-27 2020-04-27 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 [facility] 1.2.840.114 [id number] 08:24:03 08:39:03 Visit Lab Main [place] 350.1.13.10 [place] 4.2.7.2.686 Professio [phone] [address] 2020-04-27 2020-04-27 Outpatient R [facility] [id number] -[id number] Univers 08:30:00 08:30:00 [id number] [facility] 2020-04-27 2020-04-27 Outpatient R ALETHA [facility] [id number] Univers 08:30:00 08:30:00 [place] perez o [facility] 2020-04-27 2020-04-27 Telephone AlethaRUST [id number] 00:00:00 00:00:00 Rogerzaheer Yeh[place] 350.1.13.10 [place] 4.2.7.2.686 Professio [phone] nal 059 [facility] 2020-04-20 2020-04-20 Refill AlethaRUST 1.2.840.114 [id number] 00:00:00 00:00:00 Rogerzaheer Yeh[place] 350.1.13.10 [place] 4.2.7.2.686 Professio [phone] nal 059 [facility] 2020-04-01 2020-04-01 [facility] [id number] Univers 10:15:00 10:15:00 NICK [id number] [facility] 2020-04-01 2020-04-01 [facility] [id number] Univers 10:15:00 10:15:00 [facility] 2020-03-29 2020-03-29 Office AlethaRUST 1.2.840.114 [id number] 14:32:40 15:25:41 Visit [place] 350.1.13.10 [place] 4.2.7.2.686 Professio [phone] nal 9 [facility] 2020-03-29 2020-03-29 Outpatient R ALETHA [facility] [id number] -[id number] Univers 14:40:00 14:40:00 [place] [id number] [facility] 2020-03-29 2020-03-29 [facility] [id number] Univers 14:40:00 14:40:00 [place] scottjake o [facility] 2020-03-22 2020-03-22 Outpatient R [facility] [id number] -[id number] Univers 15:30:00 15:30:00 ity [facility] 2020-03-22 2020-03-22 Outpatient R ALETHA, [facility] [id number] Univers 15:30:00 15:30:00 [place] perez o [facility] 2020-03-15 2020-03-15 Outpatient R [facility] [id number] -[id number] Univers 11:15:00 11:15:00 ity [facility] 2020-03-15 2020-03-15 Outpatient R ALETHA, [facility] [id number] Univers 11:15:00 11:15:00 [place] perez o [facility] 2020-02-24 2020-02-24 Outpatient R ALETHA, [facility] [id number] -[id number] Univers 08:40:00 08:40:00 [place] [id number] tylery o [facility] 2020-02-24 2020-02-24 Outpatient R ALETHA, [facility] [id number] Univers 08:40:00 08:40:00 [place] perez o [facility] 2020-02-17 2020-02-17 Outpatient R [facility] [id number] -[id number] Univers 09:15:00 09:15:00 ity [facility] 2020-02-17 2020-02-17 Outpatient R ALETHA, [facility] [id number] Univers 09:15:00 09:15:00 [place] jimenes [facility] 2020-01-11 2020-01-11 Outpatient R [facility] [id number] -[id number] Univers 12:45:00 12:45:00 [id number] ity [facility] 2020-01-11 2020-01-11 Outpatient R ALETHA, [facility] [id number] Univers 12:45:00 12:45:00 [place] scotty o [facility] 2019-12-17 2019-12-17 Outpatient R [facility] [id number] -[id number] Univers 11:00:00 11:00:00 ity [facility] 2019-12-17 2019-12-17 Outpatient R ALETHA, [facility] [id number] Univers 11:00:00 11:00:00 [place] perez o [facility] 2019-11-26 2019-11-26 Outpatient R [facility] [id number] -[id number] Univers 12:45:00 12:45:00 [id number] ity of [facility] 2019-11-26 2019-11-26 Outpatient R ALETHA, [facility] [id number] Univers 12:45:00 12:45:00 [place] ity o f [facility] 2019-10-30 2019-10-30 Outpatient R RADIOLOGY [facility] [id number] Univers 10:40:00 10:40:00 [id number] ity [facility] 2019-10-30 2019-10-30 Outpatient R RADIOLOGY [facility] [id number] Univers 00:00:00 00:00:00 ity of [facility] 2019-10-20 2019-10-20 Outpatient R [facility] [id number] -[id number] Univers 09:30:00 09:30:00 ity [facility] 2019-10-20 2019-10-20 Outpatient R MCDERMOTTALICJA STRANGE [facility] [id number] Univers 09:30:00 09:30:00 ity of [facility] 2019-09-30 2019-09-30 Outpatient R [facility] [id number] -[id number] Univers 08:30:00 08:30:00 [id number] ity of [facility] 2019-09-30 2019-09-30 Outpatient R ALETHA, [facility] [id number] Univers 08:30:00 08:30:00 [place] scotty o f [facility] 2019-09-08 2019-09-08 Outpatient R ALETHA, [facility] [id number] -[id number] Univers 15:20:00 15:20:00 [place] [id number] ity o f [facility] 2019-09-08 2019-09-08 Outpatient R ALETHA, [facility] [id number] Univers 15:20:00 15:20:00 [place] ity o f [facility] 2019-09-03 2019-09-03 Outpatient R [facility] [id number] -[id number] Univers 09:00:00 09:00:00 [id number] ity of [facility] 2019-09-03 2019-09-03 Outpatient R ALETHA, [facility] [id number] Univers 09:00:00 09:00:00 ROGERJUN ity o f [facility] 2019-07-24 2019-07-24 Outpatient R [facility] [id number] -[id number] Univers 11:45:00 11:45:00 ana [facility] 2019-07-24 2019-07-24 Outpatient R ALETHA [facility] [id number] Univers 11:45:00 11:45:00 [place] hayes [facility] 2019-06-22 2019-06-22 Outpatient R [facility] [id number] -[id number] Univers 13:30:00 13:30:00 [facility] 2019-06-22 2019-06-22 Outpatient R ALETHA [facility] [id number] Univers 13:30:00 13:30:00 [place] hayes [facility] Results Test Description Test Time Test Comments Results Result Comments Source PROTHROMBIN TIME / INR 2021-02-24 16:32:36 Test Item Value Reference Range Interpretation Comme nts PROTIME PATIENT (test code = See_Comment H [Automated message] The system 5964-2) which generated this result transmitted ref erence range: 12.0 - 14.7 Sec onds. The reference range was not used to interpret this result as normal/abnormal . INR (test code = 6301-6) HH Nor mal INR <1.1; Warfarin Therapeutic ran ge 2.0 to 3.0 or 2.5 to 3.5, dep ending upon the indications. Lab Interpretation (test code Abnormal = 67402-2) [facility] (NA, K, CL, CO2, GLUCOSE, BUN, CREATININE, CA)2021-02-09 11:54:47 Test Item Value Reference Range Interpretation Comments NA (test code = 132 mmol/L 135-145 L 2485430909) K (test code = 4.2 mmol/L 3.5-5.0 9445962124) CL (test code = 89 mmol/L 98-108 L 6466072488) CO2 TOTAL (test code = 37 mmol/L 23-31 H 4943160214) AGAP (test code = 2-16 8260737399) BUN (test code = 31 mg/dL 7-23 H 9494106192) GLUCOSE (test code = 109 mg/dL 70-110 3305182767) CREATININE (test code = 0.95 mg/dL 0.50-1.04 2710630658) CALCIUM (test code = 9.7 mg/dL 8.6-10.6 8658725791) eGFR (test code = mL/min/1.73m2 1655136991) ROBERT (test code = ROBERT) Association of [...] tests). Lab Interpretation Abnormal (test code = 88954-4) [facility]2021-10-28 11:45:27 Test Item Value Reference Range Interpretation Comments MAGNESIUM (test code = 8102712401) 2.0 mg/dL 1.7-2.4 Lab Interpretation (test code = Normal 02190-4) [facility] TylerPROTHROM[facility] / [id number] 11:34:42 Test Item Value Reference Range Interpretation [...] tions. Lab Interpretation (test Abnormal code = 22169-1) [facility]MINAL [id number] 12:01:34 Test Item Value Reference Range Interpretation Comments NT-proBNP (test code 1700 pg/mL See_Comment H [Autom ated = 8015209249) message] The system which generated this result transmitted reference range : <=125. The reference range was not used to interpret this result as normal/abnormal . ROBERT (test code = ROBERT) Biotin has been reported to cause a negative bias, interpret results relative to patient's use of biotin. Lab Interpretation Abnormal (test code = 75799-9) [facility]2021-10-27 11:56:11 Test Item Value Reference Range Interpretation Comments MAGNESIUM (test code = 7740994275) 1.5 mg/dL 1.7-2.4 L Lab Interpretation (test code = Abnormal 42942-4) [facility] METABOLIC PANEL (NA, K, CL, CO2, GLUCOSE, BUN, CREATININE, CA)2021-02-08 11:55:56 Test Item Value Reference Range Interpretation Comments NA (test code = 132 mmol/L 135-145 L 1221814083) K (test code = 4.2 mmol/L 3.5-5.0 3650733946) CL (test code = 91 mmol/L 98-108 L 6171094569) CO2 TOTAL (test code = 34 mmol/L 23-31 H 0629934727) AGAP (test code = 2-16 9938283470) BUN (test code = 30 mg/dL 7-23 H 8708227480) GLUCOSE (test code = 165 mg/dL 70-110 H 2982593588) CREATININE (test code = 1.05 mg/dL 0.50-1.04 H 4308694249) CALCIUM (test code = 9.9 mg/dL 8.6-10.6 0695420625) eGFR (test code = mL/min/1.73m2 3297646450) ROBERT (test code = ROBERT) Association of [...] tests). Lab Interpretation Abnormal (test code = 30275-0) [facility] TylerPROTHROMBIN TIME / [id number] 11:44:10 Test Item Value Reference Range Interpretation Comments PROTIME PATIENT (test See_Comment H [Auto mated message] code = 5964-2) The system [employer] generated this result transmitted ref erence range: 12.0 - 1 4.7 Seconds. The reference range was not used to int erpret this result as normal/abnormal . INR (test code = 6301-6) Nor mal INR <1.1; Warfarin Therap eutic range 2.0 to 3. 0 or 2.5 to 3.5, dep ending upon the indica tions. Lab Interpretation (test Abnormal code = 82495-5) [facility] TylerFERRITIN [id number] 22:03:37 Test Item Value Reference Range Interpretation Comments FERRITIN (test code = 157.0 ng/mL 11.0-264.0 3384969333) ROBERT (test code = ROBERT) Biotin has been reported to cause a negative bias, interpret results relative to patient's use of biotin. Lab Interpretation (test Normal code = 09309-1) [facility] IRON BINDING [id number] 21:36:54 Test Item Value Reference Range Interpretation Comments TIBC (test code = 4396682530) 340 ug/dL 250-410 % FE SAT (test code = 4127638370) 15 % 20-50 L Lab Interpretation (test code = Abnormal 98416-2) [facility] TylerIRON2021-10-26 21:27:49 Test Item Value Reference Range Interpretation Comments IRON (test code = 3182894266) 50 ug/dL 50-160 Lab Interpretation (test code = Normal 04202-2) [facility] METABOLIC PANEL (NA, K, CL, CO2, GLUCOSE, BUN, CREATININE, CA)2021-02-07 12:20:00 Test Item Value Reference Range Interpretation Comments NA (test code = 133 mmol/L 135-145 L 0765672124) K (test code = 4.3 mmol/L 3.5-5.0 2247220584) CL (test code = 94 mmol/L 98-108 L 9008031795) CO2 TOTAL (test code = 34 mmol/L 23-31 H 2323373569) AGAP (test code = 2-16 1813557954) BUN (test code = 29 mg/dL 7-23 H 0419379699) GLUCOSE (test code = 113 mg/dL 70-110 H 3412125337) CREATININE (test code = 0.94 mg/dL 0.50-1.04 1947958849) CALCIUM (test code = 10.0 mg/dL 8.6-10.6 0359523047) eGFR (test code = mL/min/1.73m2 8551651299) ROBERT (test code = ROBERT) Association of [...] tests). Lab Interpretation Abnormal (test code = 40529-7) [facility]MIN[facility] [id number] 11:47:15 Test Item Value Reference Range Interpretation Comments NT-proBNP (test code 1560 pg/mL See_Comment H [Autom ated = 1982268707) message] The system which generated this result transmitted reference range : <=125. The reference range was not used to interpret this result as normal/abnormal . ROBERT (test code = ROBERT) Biotin has been reported to cause a negative bias, interpret results relative to patient's use of biotin. Lab Interpretation Abnormal (test code = 24038-6) [facility]2021-10-26 11:42:12 Test Item Value Reference Range Interpretation Comments MAGNESIUM (test code = 5654244539) 1.7 mg/dL 1.7-2.4 Lab Interpretation (test code = Normal 61632-0) [facility]PROT[facility]OM[facility] / [id number] 11:12:08 Test Item Value Reference Range Interpretation Comments PROTIME PATIENT (test See_Comment H [Auto mated message] code = 5964-2) The system [employer] generated this result transmitted ref erence range: 12.0 - 1 4.7 Seconds. The reference range was not used to int erpret this result as normal/abnormal . INR (test code = 6301-6) Nor mal INR <1.1; Warfarin Therap eutic range 2.0 to 3. 0 or 2.5 to 3.5, dep ending upon the indica tions. Lab Interpretation (test Abnormal code = 04815-3) [facility] WITHOUT [id number] 11:03:09 Test Item Value Reference Range Interpretation Comments WBC (test code = 6690-2) See_Comment [A utomated message] The system [employer] generated this result transmit bandar reference range : 4.30 - 11.10 10*3/?L. The reference range was not used to interpret this result as normal/abnormal . RBC (test code = 789-8) See_Comment L [Au tomated message] The system [employer] generated this result transmit bandar reference range [...] 777-3) See_Comment [Au tomated message] The system [employer] generated this result transmit bandar reference range : 166 - 358 10*3/?L. The reference range was not used to interpret this result as normal/abnormal . MPV (test code = 10.6 fL 9.5-12.9 00088-0) RDW-CV (test code = 14.0 % 12.0-15.5 788-0) RDW-SD (test code = 48.5 fL 39.0-49.9 61435-2) NRBC x10^3 (test code = <0.01 See_Comment [Au tomated message] 6173819604) The system [employer] h generated this result transmit bandar reference range : 10*3/?L. The reference range was not used to interpret this result as normal/abnormal . NRBC/100 WBC (test code See_Comment [Au tomated message] = 7070544223) The system i ch generated this result transmit bandar reference range : 0.0 - 10.0 /100 WBC s. The reference r tali was not used to interpret this result as normal/abnormal . IPF % (test code = 2007585951) Lab Interpretation (test Abnormal code = 07556-7) [facility]PROTHROMBIN [facility] / [id number] 11:50:01 Test Item Value Reference Range Interpretation Comments PROTIME PATIENT (test See_Comment H [Auto mated message] code = 5964-2) The system ich generated this result transmitted ref erence range: 12.0 - 1 4.7 Seconds. The reference range was not used to int erpret this result as normal/abnormal . INR (test code = 6301-6) Nor mal INR <1.1; Warfarin Therap eutic range 2.0 to 3. 0 or 2.5 to 3.5, dep ending upon the indica tions. Lab Interpretation (test Abnormal code = 89578-5) [facility]2021-10-25 11:25:39 Test Item Value Reference Range Interpretation Comments MAGNESIUM (test code = 6982097828) 1.7 mg/dL 1.7-2.4 Lab Interpretation (test code = Normal 02473-1) [facility] METABOLIC PAN[facility] (NA, K, CL, CO2, GLUCOSE, BUN, CREATININE, CA)2021-02-06 11:25:19 Test Item Value Reference Range Interpretation Comments NA (test code = 136 mmol/L 135-145 8703950133) K (test code = 3.6 mmol/L 3.5-5.0 5225885817) CL (test code = 98 mmol/L 98-108 6221372569) CO2 TOTAL (test code = 36 mmol/L 23-31 H 2076483610) AGAP (test code = 2-16 0807290540) BUN (test code = 24 mg/dL 7-23 H 0196917609) GLUCOSE (test code = 101 mg/dL 70-110 4672154261) CREATININE (test code = 1.01 mg/dL 0.50-1.04 4877341410) CALCIUM (test code = 9.8 mg/dL 8.6-10.6 6241205891) eGFR (test code = mL/min/1.73m2 9275456356) ROBERT (test code = ROBERT) Association of [...] tests). Lab Interpretation Abnormal (test code = 36195-8) [facility]PROTHROMBIN TIME / [id number] 17:29:39 Test Item Value Reference Range Interpretation Comments PROTIME PATIENT (test See_Comment H [Auto mated message] code = 5964-2) The system [employer] generated this result transmitted ref erence range: 12.0 - 1 4.7 Seconds. The reference range was not used to int erpret this result as normal/abnormal . INR (test code = 6301-6) HH Nor mal INR <1.1; Warfarin Therap eutic range 2.0 to 3. 0 or 2.5 to 3.5, dep ending upon the indica tions. Lab Interpretation (test Abnormal code = 39902-0) [facility] (NA, K, CL, CO2, GLUCOSE, BUN, CREATININE, CA)2021-02-05 16:50:13 Test Item Value Reference Range Interpretation Comments NA (test code = 137 mmol/L 135-145 [id number]) K (test code = 3.9 mmol/L 3.5-5.0 [id number]) CL (test code = 101 mmol/L 98-108 [id number]) CO2 TOTAL (test code = 37 mmol/L 23-31 H [id number]) AGAP (test code = <1 2-16 L [id number]) BUN (test code = 20 mg/dL 7-23 [id number]) GLUCOSE (test code = 89 mg/dL 70-110 [id number]) CREATININE (test code = 0.85 mg/dL 0.50-1.04 8503156542) CALCIUM (test code = 9.7 mg/dL 8.6-10.6 7961475049) eGFR (test code = mL/min/1.73m2 8378964588) ROBERT (test code = ROBERT) Association of [...] tests). Lab Interpretation Abnormal (test code = 19059-4) [facility] 16:45:11 Test Item Value Reference Range Interpretation Comments MAGNESIUM (test code = 6888501723) 1.8 mg/dL 1.7-2.4 Lab Interpretation (test code = Normal 95228-4) [facility]CBC WITHOUT [id number] 16:19:28 Test Item Value Reference Range Interpretation Comments WBC (test code = 6690-2) See_Comment [A utomated message] The system [employer] generated this result transmit bandar reference range : 4.30 - 11.10 10*3/?L. The reference range was not used to interpret this result as normal/abnormal . RBC (test code = 789-8) See_Comment L [Au tomated message] The system [employer] generated this result transmit bandar reference range [...] 777-3) See_Comment [Au tomated message] The system [employer] generated this result transmit bandar reference range : 166 - 358 10*3/?L. The reference range was not used to interpret this result as normal/abnormal . MPV (test code = 10.0 fL 9.5-12.9 99098-4) RDW-CV (test code = 14.6 % 12.0-15.5 788-0) RDW-SD (test code = 51.8 fL 39.0-49.9 H 51771-0) NRBC x10^3 (test code = <0.01 See_Comment [Au tomated message] [id number]) The system [employer] generated this result transmit bandar reference range : 10*3/?L. The reference range was not used to interpret this result as normal/abnormal . NRBC/100 WBC (test code See_Comment [Au tomated message] = 8017976153) The system [facility] generated this result transmit bandar reference range : 0.0 - 10.0 /100 WBC s. The reference r tali was not used to interpret this result as normal/abnormal . IPF % (test code = 0323278671) Lab Interpretation (test Abnormal code = 58741-8) [facility] [id number] 02:55:44 Test Item Value Reference Interpretation Comments Range TROPONIN I (test 0.005 ng/mL See_Comment [Automated code = 0983363702) message] The system which generated this result [...] biotin. Lab Interpretation Normal (test code = 04782-8) [facility] [id number] 02:52:43 Test Item Value Reference Range Interpretation Comments NT-proBNP (test code 1650 pg/mL See_Comment H [Autom ated = 8239632624) message] The system which generated this result transmitted reference range : <=125. The reference range was not used to interpret this result as normal/abnormal . ROBERT (test code = ROBERT) Biotin has been reported to cause a negative bias, interpret results relative to patient's use of biotin. Lab Interpretation Abnormal (test code = 08072-7) [facility]-24 02:44:06 Test Item Value Reference Range Interpretation Comments MAGNESIUM (test code = 3786634721) 1.8 mg/dL 1.7-2.4 Lab Interpretation (test code = Normal 90051-5) [facility]. METABOLIC PANEL (90048)2021-02-05 02:43:45 Test Item Value Reference Range Interpretation Comments NA (test code = 142 mmol/L 135-145 2313776881) K (test code = 3.6 mmol/L 3.5-5.0 2194872412) CL (test code = 103 mmol/L 98-108 6922735064) CO2 TOTAL (test code = 35 mmol/L 23-31 H 9247187071) AGAP (test code = 2-16 8830562904) BUN (test code = 22 mg/dL 7-23 5002650374) GLUCOSE (test code = 108 mg/dL 70-110 1751209692) CREATININE (test code = 0.83 mg/dL 0.50-1.04 4188456820) TOTAL BILI (test code = 0.4 mg/dL 0.1-1.1 7487824335) CALCIUM (test code = 10.3 mg/dL 8.6-10.6 4612511018) T PROTEIN (test code = 6.7 g/dL 6.3-8.2 4498337896) ALBUMIN (test code = 3.4 g/dL 3.5-5.0 L 6183061633) ALK PHOS (test code = 74 U/L 34-122 0182749311) ALTv (test code = 34 U/L 5-35 1742-6) AST(SGOT) (test code = 42 U/L 13-40 H 7084086808) eGFR (test code = mL/min/1.73m2 3128251489) ROBERT (test code = ROBERT) Association of [...] tests). Lab Interpretation Abnormal (test code = 86084-4) [facility] 02:43:45 Test Item Value Reference Range Interpretation Comments LIPASE (test code = 5005874970) 212 U/L 0-220 Lab Interpretation (test code = Normal 08020-1) [facility] TylerPROTHROMBIN TIME / [id number] 02:36:53 Test Item Value Reference Range Interpretation Comments PROTIME PATIENT (test See_Comment H [Auto mated message] code = 5964-2) The system [employer] generated this result transmitted ref erence range: 12.0 - 1 4.7 Seconds. The reference range was not used to int erpret this result as normal/abnormal . INR (test code = 6301-6) [facility] Nor mal INR <1.1; Warfarin Therap eutic range 2.0 to 3. 0 or 2.5 to 3.5, dep ending upon the indica tions. Lab Interpretation (test Abnormal code = 92145-4) [facility] WITH [id number] 02:23:44 Test Item Value Reference Range Interpretation [...] (test code = 51.9 fL 39.0-49.9 H 07180-9) RDW-CV (test code = 14.4 % 12.0-15.5 788-0) PLT (test code = See_Comment [Automated 777-3) message] The sy stem which generated this result transmitted reference range : 166 - 358 10*3/ ?L. The reference r tali was not used to interpret this result as normal/abnormal . MPV (test code = 9.9 fL 9.5-12.9 54686-7) NRBC/100 WBC (test See_Comment [Automat ed code = 0447068976) message] The system which generated this result transmitted reference range : 0.0 - 10.0 /100 WBCs. The refer ence range was not u sed to interpret th is result as normal/abnormal . NRBC x10^3 (test code <0.01 See_Comment [Auto mated = 3952433640) message] The s ystem which generated this result transmitted reference range : 10*3/?L. The reference range was not used to interpret this result as normal/abnormal . GRAN MAT (NEUT) % 70.6 % (test code = 770-8) IMM GRAN % (test code 0.50 % = 0470411812) LYMPH % (test code = 15.7 % 736-9) MONO % (test code = 11.0 % 5905-5) EOS % (test code = 1.3 % 713-8) BASO % (test code = 0.9 % 706-2) GRAN MAT x10^3(ANC) 5.63 10*3/uL 1.88-7.09 (test code = 2985578319) IMM GRAN x10^3 (test 0.04 10*3/uL 0.00-0.06 code = 8592080933) LYMPH x10^3 (test code 1.25 10*3/uL 1.32-3.29 L = 731-0) MONO x10^3 (test code 0.88 10*3/uL 0.33-0.92 = 742-7) EOS x10^3 (test code = 0.10 10*3/uL 0.03-0.39 711-2) BASO x10^3 (test code 0.07 10*3/uL 0.01-0.07 = 704-7) Lab Interpretation Abnormal (test code = 94130-9) [facility]"
== END 2021-02-25 19:10 | disposition home or self-care (01) ==
LOC: ER 15:58
DX: S40.012A Contusion of left shoulder, initial encounter (principal); I48.20 Chronic atrial fibrillation, unspecified; T45.7X5A Adverse effect of anticoagulant antagonists, vitamin K and other coagulants, initial encounter; D64.9 Anemia, unspecified; R00.1 Bradycardia, unspecified; N17.9 Acute kidney failure, unspecified; W18.30XA Fall on same level, unspecified, initial encounter; Z95.4 Presence of other heart-valve replacement; Z79.01 Long term (current) use of anticoagulants; Z79.82 Long term (current) use of aspirin; Z88.5 Allergy status to narcotic agent
CPT/HCPCS: 93005; 85025; 80048; 36415; 83735; 85610; 80162; 80076; 81003; 84484; 83880; 70450; 71250; 72125; 71045; 73030; 96375; 96374; 99284; J1170; J7040; J7030; J2405

== ENCOUNTER 2021-05-29 20:28 | Observation (INO) | payer OTHER ==
--- OUTSIDE RECORDS SUMMARY | 2021-05-29 20:32 | XMS REPORT | Continuity of Care Document ---
:1955 Author Organization [facility] t Address [address] [place] [address] Care Team Providers Name Role Phone Olya E Primary Care Physician BENITO RODRÍGUEZ Attending Clinician Unavailable Benito Ibarra Attending Clinician Pob, Lab Main Attending Clinician Unavailable Aletha LOVELL Attending Clinician ALETHA Attending Clinician Unavailable Hima LOVELL Attending Clinician HIMA Attending Clinician Unavailable Doctor Unassigned, Name Attending Clinician Unavailable Payers Payer Name Policy Type Policy Number Effective Date Expiration Date Judi hamilton [facility] DUAL [id number] 2020 00:00:00 COMP HMO D SNP [facility] ST[facility] [id number] 2013 00:00:00 PLUS Problems Condition Condition Condition Status Onset Resolution Last Treating Co mments Source Name Details Category Date Date Treatment Clinician Date E44.0 E44.0 Disease Active 2020-04 Univers Moderate Moderate 1-19 ity of protein protein 00:00: [place] calorie calorie 00 Medical malnutriti malnutriti Br anch on on Other Other Disease Active 2020-04 Univers chest pain chest pain 1-19 it y of 00:00: [place] 00 Medical Branch Chest pain Chest pain Disease Active 2020-04 U nivers 1-17 ity of 00:00: [place] 00 Medical Branch Elevated Elevated Disease Active 2020-04 Unive rs brain brain 0-24 ity of natriure[place] natriureti [place] c peptide c peptide 00 Medi tyrone (BNP) (BNP) Branch level level Lab test Lab test Disease Active 2020-04 Unive rs positive positive 0-24 ity of for for 00:00: [place] detection detection 00 Medi tyrone of of Branch COVID-19 COVID-19 virus virus Acute on Acute on Disease Active 2020-04 Unive rs chronic chronic 0-24 ity of diastolic diastolic 00:00: [place] CHF CHF 00 Medical (congestiv (congestiv Br anch e heart e heart failure), failure), NYHA class NYHA class 3 3 Mixed Mixed Disease Active Univers hyperlipid hyperlipid 8-20 it y of emia emia 00:00: [place] 00 Medical Branch Essential Essential Disease Active Uni vers hypertensi hypertensi 8-20 it y of on on 00:00: [place] Medical Branch Anticoagul Anticoagul Disease Active U nivers ated ated 8-20 ity of 00:00: [place] 00 Medical Branch Coronary Coronary Disease Active Unive rs artery artery 8-20 ity of disease disease 00:00: [place] involving involving 00 Medi tyrone [place] [facility] coronary coronary artery of artery of [place] 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 2-20 ity of disease disease 00:00: [place] involving involving 00 Medi tyrone [place] [facility] heart heart without without angina angina [...] Medical Branch Morphine Propensi Active Shortness of Univers ty to Breath 1-15 ity of adverse 00:00: [place] reaction 00 Medical s to Branch drug NO KNOWN Drug Active Univers ALLERGIE Class ity of S [facility] Social History Social Habit Start Date Stop Date Quantity Comments Source Exposure to Unable to assess Univers ity of SARS-CoV-2 [facility] (event) [place] Alcohol intake 2021-04-28 2021-04-28 Current drinker Unive rsity of 00:00:00 00:00:00 of alcohol [facility] (finding) [place] Tobacco use and 2017-06-04 2017-06-04 Never used Universit y of exposure 00:00:00 00:00:00 [facility] Sex Ass[birth year] Universit y of 00:00:00 00:00:00 [facility] Smoking Status Start Date Stop Date Source [facility]ations Ordered Filled Start Stop Current Ordering Indication Dosage Frequency Signature Comments Components Source Medication Medication Date Date Medication? Clinician (SIG) Name Name NaCl 0.9% 2021- No 500mL at 999 Univ ers (NS) bolus 05-27-12 mL/hr, 500 it y of infusion 02:30: 02:28 mL, IV [place] 500 mL 00 :00 Infusion, Medical ONCE, 1 Branch dose, On Sat05/26/21 at 2030, STAT HYDROcodone 2021- No 1{tbl} 1 tablet, Univers -acetaminop 05-27 Oral, ity of hen (NORCO) 02:00: 01:23 ONCE, 1 [place] 10-325 mg 00 :00 dose, On Medica l tablet 1 Fri Branch tablet 05/26/21 at 2000, Routine NaCl 0.9% 2021- No 500mL at 999 Univ ers (NS) bolus -03 16-12 mL/hr, 500 it y of infusion 00:45: 00:57 mL, IV [place] 500 mL 00 :00 Infusion, Medical ONCE, 1 Branch dose, On Sat05/26/21 at 1845, STAT warfarin 1 Yes [id number] 1 mg MW, 2 Univers mg tablet 1-25 mg ity of 00:00: T/T/F/S/S Medical Branch warfarin 1 2021-0 Yes [id number] 1 mg MW, 2 Univers mg tablet 1-25 mg ity of 00:00: T/T/F/S/S Medical Branch warfarin 1 2021-0 Yes [id number] 1 mg MW, 2 Univers mg tablet 1-25 mg ity of 00:00: /T/F/S/S Medical Branch warfarin 1 2021-0 Yes [id number] 1 mg MW, 2 Univers mg tablet 1-25 mg ity of 00:00: T/T/F/S/S Medical Branch warfarin 1 2021-0 Yes [id number] 1 mg MW, 2 Univers mg tablet 1-25 mg ity of 00:00: T/T/F/S/S [place] Medical Branch atorvastati Yes 80mg Take 1 Univ ers n 80 mg 1-20 tablet by ity of tablet 00:00: mouth at [place] [address] bedtime. Medical Branch atorvastati Yes 80mg Take 1 Univ ers n 80 mg 1-20 tablet by ity of tablet 00:00: mouth at [place] [address] bedtime. Medical Branch atorvastati Yes 80mg Take 1 Univ ers n 80 mg 1-20 tablet by ity of tablet 00:00: mouth at [place] bedtime. Medical Branch atorvastati Yes 80mg Take 1 Univ ers n 80 mg 1-20 tablet by ity of tablet 00:00: mouth at [place] bedtime. Medical Branch atorvastati 0 Yes 80mg Take 1 Univ ers n 80 mg 1-20 tablet by ity of tablet 00:00: mouth at [place] bedtime. Medical Branch atorvastati 0 Yes 80mg Take 1 Univ ers n 80 mg 1-20 tablet by ity of tablet 00:00: mouth at [place] [address] bedtime. Medical Branch atorvastati 2020-04 Yes [id number] 40mg Take 1 Univers n 40 mg 2-17 tablet by ity of tablet 00:00: mouth at [place] [address] bedtime. Medical Please Branch have fasting lab work done for cholestero l level. atorvastati 2020-04 Yes [id number] 40mg Take 1 Univers n 40 mg 2-17 tablet by ity of tablet 00:00: mouth at [place] [address] bedtime. Medical Please Branch have fasting lab work done for cholestero l level. atorvastati 2020-04 Yes [id number] 40mg Take 1 Univers n 40 mg 2-17 tablet by ity of tablet 00:00: mouth at [place] [address] bedtime. Medical Please Branch have fasting lab work done for cholestero l level. atorvastati 2020-04 Yes [id number] 40mg Take 1 Univers n 40 mg 2-17 tablet by ity of tablet 00:00: mouth at [place] [address] bedtime. Medical Please Branch have fasting lab work done for cholestero l level. atorvastati 2020-04 Yes [id number] 40mg Take 1 Univers n 40 mg 2-17 tablet by ity of tablet 00:00: mouth at [place] [address] bedtime. Medical Please Branch have fasting lab work done for cholestero l level. atorvastati 2020-04 Yes [id number] 40mg Take 1 Univers n 40 mg 2-17 tablet by ity of tablet 00:00: mouth at [place] [address] bedtime. Medical Please Branch have fasting lab work done for cholestero l level. atorvastati 2020-04 Yes [id number] 40mg Take 1 Univers n 40 mg 2-17 tablet by ity of tablet 00:00: mouth at [place] [address] bedtime. Medical Please Branch have fasting lab work done for cholestero l level. atorvastati 2020-04 Yes [id number] 40mg Take 1 Univers n 40 mg 2-17 tablet by ity of tablet 00:00: mouth at [place] [address] bedtime. Medical Please Branch have fasting lab work done for cholestero l level. warfarin 2020-04 Yes [id number] 1 mg Uni vers mg tablet 2-15 M/W/F, 2 ity of 00:00: mg T/T/S/S Medical Branch furosemide 2020-04 Yes [id number] 40 mg AM Univers 20 mg 2-15 02 and 20 mg ity of tablet 00:00: PM Medical Branch metoprolol 2020-04 Yes [id number] 25mg Take 1 U nivers tartrate 25 2-15 tablet by ity of mg tablet 00:00: mouth 2 [place] (two) Medical times Branch daily. warfarin 1 2020-04 Yes [id number] 1 mg Uni vers mg tablet 2-15 M/W/F, 2 ity of 00:00: mg T/T/S/S [place] [facility] Branch furosemide 2020-04 Yes [id number] 40 mg AM Univers 20 mg 2-15 02 and 20 mg ity of tablet 00:00: PM [place] [facility] Branch metoprolol 2020-04 Yes [id number] 25mg Take 1 U nivers tartrate 25 2-15 tablet by ity of mg tablet 00:00: mouth 2 [place] (two) Medical times [place] daily. warfarin 1 2020-04 Yes [id number] 1 mg Uni vers mg tablet 2-15 M/W/F, 2 ity of 00:00: mg T/T/S/S [place] [facility] Branch furosemide 2020-04 Yes [id number] 40 mg AM Univers 20 mg 2-15 02 and 20 mg ity of tablet 00:00: PM [place] [facility] metoprolol 2020-04 Yes [id number] 25mg Take 1 U nivers tartrate 25 2-15 tablet by ity of mg tablet 00:00: mouth [place] ([facility]) Medical times [place] daily. furosemide 2020-04 Yes [id number] 40 mg AM Univers 20 mg 2-15 02 and 20 mg ity of tablet 00:00: PM [address] metoprolol 2020-04 Yes [id number] 25mg Take 1 U nivers tartrate 25 2-15 tablet by ity of mg tablet 00:00: mouth [place] ([facility]) Medical times [place] daily. furosemide 2020-04 Yes [id number] 40 mg AM Univers 20 mg 2-15 02 and 20 mg ity of tablet 00:00: PM [address] metoprolol 2020-04 Yes [id number] 25mg Take 1 U nivers tartrate 25 2-15 tablet by ity of mg tablet 00:00: mouth [place] ([facility]) Medical times [place] daily. furosemide 2020-04 Yes [id number] 40 mg AM Univers 20 mg 2-15 02 and 20 mg ity of tablet 00:00: PM [address] metoprolol 2020-04 Yes [id number] 25mg Take 1 U nivers tartrate 25 2-15 tablet by ity of mg tablet 00:00: mouth 2 (two) Medical times Branch daily. furosemide 2020-04 Yes [id number] 40 mg AM Univers 20 mg 2-15 02 and 20 mg ity of tablet 00:00: PM Medical Branch metoprolol 2020-04 Yes [id number] 25mg Take 1 U nivers tartrate 25 2-15 tablet by ity of mg tablet 00:00: mouth 2 [place] (two) Medical times Branch daily. furosemide 2020-04 Yes [id number] 40 mg AM Univers 20 mg 2-15 02 and 20 mg ity of tablet 00:00: PM Medical Branch metoprolol 2020-04 Yes [id number] 25mg Take 1 U nivers tartrate 25 2-15 tablet by ity of mg tablet 00:00: mouth 2 [place] (two) Medical times Branch daily. warfarin 1 2020-04- No [id number] 1 mg Un chong mg tablet 05-30 M/W/F, 2 ity o f 00:00: 00:00 mg T/T/S/S [place] 00 :00 [facility] Branch polyethylen 2020-04 Yes [id number] 17g Take 1 Univers e glycol 0-29 Packet by ity of 3350 17 00:00: mouth [place] gram powder 00 daily. Medica l Branch polyethylen 2020-04 Yes [id number] 17g Take 1 Univers e glycol 0-29 Packet by ity of 3350 17 00:00: mouth [place] gram powder 00 daily. Medica l Branch polyethylen 2020-04 Yes [id number] 17g Take 1 Univers e glycol 0-29 Packet by ity of 3350 17 00:00: mouth [place] gram powder 00 daily. Medica l Branch polyethylen 2020-04 Yes [id number] 17g Take 1 Univers e glycol 0-29 Packet by ity of 3350 17 00:00: mouth [place] gram powder 00 daily. Medica l Branch polyethylen 2020-04 Yes [id number] 17g Take 1 Univers e glycol 0-29 Packet by ity of 3350 17 00:00: mouth [place] gram powder 00 daily. Medica l Branch polyethylen 2020-04 Yes [id number] 17g Take 1 Univers e glycol 0-29 Packet by ity of 3350 17 00:00: mouth [place] gram powder 00 daily. Medica l Branch polyethylen 2020-04 Yes [id number] 17g Take 1 Univers e glycol 0-29 Packet by ity of 3350 17 00:00: mouth [place] gram powder 00 daily. Medica l Branch polyethylen 2020-04 Yes [id number] 17g Take 1 Univers e glycol 0-29 Packet by ity of 3350 17 00:00: mouth [place] gram powder 00 daily. Medica l Branch docusate 2020-04 Yes [id number] 100mg Take 1 U nivers 100 mg 0-28 capsule by ity of capsule 00:00: [place] (two) Medical times Branch daily. docusate 2020-04 Yes [id number] 100mg Take 1 U nivers 100 mg 0-28 capsule by ity of capsule 00:00: [place] (two) Medical times Branch daily. docusate 2020-04 Yes [id number] 100mg Take 1 U nivers 100 mg 0-28 capsule by ity of capsule 00:00: [place] (two) Medical times Branch daily. docusate 2020-04 Yes [id number] 100mg Take 1 U nivers 100 mg 0-28 capsule by ity of capsule 00:00: [place] (two) Medical times Branch daily. docusate 2020-04 Yes [id number] 100mg Take 1 U nivers 100 mg 0-28 capsule by ity of capsule 00:00: [place] (two) Medical times Branch daily. docusate 2020-04 Yes [id number] 100mg Take 1 U nivers 100 mg 0-28 capsule by ity of capsule 00:00: [place] (two) Medical times Branch daily. docusate 2020-04 Yes [id number] 100mg Take 1 U nivers 100 mg 0-28 capsule by ity of capsule 00:00: [place] (two) Medical times Branch daily. docusate 2020-04 Yes [id number] 100mg Take 1 U nivers 100 mg 0-28 capsule by ity of capsule 00:00: mouth 2 (two) Medical times Branch daily. warfarin Yes Atrial 2mg Take 1 Uni vers mg tablet 07-21 flutter, tablet by i ty of 00:00: unspecified mouth 00 type every Medical evening. Branch Take 1 tablet by mouth 7 days a week. sotaloL 80 2019- Yes 80mg Take 1 Unive rs mg tablet 1-17 tablet by ity o f 00:00: mouth 2 [place] (two) Medical times Branch daily. atorvastati 2019-04 Yes Mixed 40mg Take 1 Uni vers n 40 mg 1-17 hyperlipide tablet by ity of tablet 00:00: darion mouth at [place] [address] bedtime. Medical Branch gabapentin 2017-0 Yes Take by Uni vers 300 mg 4-21 mouth ity of capsule 00:00: daily. [place] Medical Branch HYDROcodone 2017-0 Yes Univer s -acetaminop 4-21 ity of hen 10-325 00:00: [place] mg tablet 00 Medical Branch lidocaine 5 2017-0 Yes Univer s % (700 4-21 ity of mg/patch) 00:00: [place] patch 00 Medical Branch gabapentin 2017-0 Yes Take by Uni vers 300 mg 4-21 mouth ity of capsule 00:00: daily. [place] Medical Branch lidocaine 5 2017-0 Yes Univer s % (700 4-21 ity of mg/patch) 00:00: [place] patch 00 Medical Branch gabapentin 2017-0 Yes Take by Uni vers 300 mg 4-21 mouth ity of capsule 00:00: daily. [place] Medical Branch lidocaine 5 2017-0 Yes Univer s % (700 4-21 ity of mg/patch) 00:00: [place] patch 00 Medical Branch gabapentin 2017-0 Yes Take by Uni vers 300 mg 4-21 mouth ity of capsule 00:00: daily. [place] Medical Branch lidocaine 5 2017-0 Yes Univer s % (700 4-21 ity of mg/patch) 00:00: [place] patch 00 Medical Branch gabapentin 2017-0 Yes Take by Uni vers 300 mg 4-21 mouth ity of capsule 00:00: daily. [place] Medical Branch lidocaine 5 2017-0 Yes Univer s % (700 4-21 ity of mg/patch) 00:00: [place] patch 00 Medical Branch gabapentin 2017-0 Yes Take by Uni vers 300 mg 4-21 mouth ity of capsule 00:00: daily. [place] [address] Medical Branch lidocaine 5 2017-0 Yes Univer s % (700 4-21 ity of mg/patch) 00:00: [place] patch 00 Medical Branch gabapentin 2017-0 Yes Take by Uni vers 300 mg 4-21 mouth ity of capsule 00:00: daily. [place] Medical Branch lidocaine 5 2017-0 Yes Univer s % (700 4-21 ity of mg/patch) 00:00: [place] patch Medical Branch gabapentin 2017-0 Yes Take by Uni vers 300 mg 4-21 mouth ity of capsule 00:00: daily. [place] Medical Branch lidocaine 5 2017-0 Yes Univer s % (700 4-21 ity of mg/patch) 00:00: [place] patch Medical Branch gabapentin 2017-0 Yes Take by Uni vers 300 mg 4-21 mouth ity of capsule 00:00: daily. [place] Medical Branch lidocaine 5 2017-0 Yes Univer s % (700 4-21 ity of mg/patch) 00:00: [place] patch Medical Branch zolpidem 10 2016-0 Yes Univer s mg tablet 4-21 ity of 00:00: [place] Medical Branch pantoprazol 2017-0 Yes Univer s e 40 mg EC 4-14 ity of tablet 00:00: [place] Medical Branch pantoprazol 2017-0 Yes Univer s e 40 mg EC 4-14 ity of tablet 00:00: [place] [address] Medical Branch pantoprazol 2017-0 Yes Univer s e 40 mg EC 4-14 ity of tablet 00:00: [place] Medical Branch pantoprazol 2017-0 Yes Univer s e 40 mg EC 4-14 ity of tablet 00:00: [place] [address] Medical Branch pantoprazol 2017-0 Yes Univer s e 40 mg EC 4-14 ity of tablet 00:00: [place] Medical Branch pantoprazol 2017-0 Yes Univer s e 40 mg EC 4-14 ity of tablet 00:00: [place] [address] Medical Branch pantoprazol 2017-0 Yes Univer s e 40 mg EC 4-14 ity of tablet 00:00: [place] Medical Branch pantoprazol 2017-0 Yes Univer s e 40 mg EC 4-14 ity of tablet 00:00: [place] Medical Branch pantoprazol 2017-0 Yes Univer s e 40 mg EC 4-14 ity of tablet 00:00: [place] [address] Medical Branch aspirin 81 2016-1 Yes 81mg Take 1 Unive rs mg chewable 0-26 tablet by ity of tablet 00:00: mouth [place] 00 daily. Medical Branch ferrous 2015-04 Yes [...] 00:00: mouth [place] 00 daily. 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 2006-0 Yes 1 Tab SL Un chong IN 0.4 MG 1-16 Q5MIN PRN ity o f SL SUBL 00:00: [place] 00 Medical Branch Immunizations Ordered Filled Immunization Date Status Comments [facility] e Immunization Name Name Influenza Virus 2021-03-06 Completed Universit y of Vaccine,quad 00:00:00 [place] Medica l Im,preserve Free [place] 65+ Influenza Virus 2021-03-06 Completed Universit y of Vaccine,quad 00:00:00 [place] Medica l Im,preserve Free [place] 65+ Influenza Virus 2021-03-06 Completed Universit y of Vaccine,quad 00:00:00 [place] Medica l Im,preserve Free [place] 65+ Influenza Virus 2021-03-06 Completed Universit y of Vaccine,quad 00:00:00 [place] Medica l Im,preserve Free Branch 65+ Influenza Virus 2021-03-06 Completed Universit y of Vaccine,quad 00:00:00 [place] Medica l Im,preserve Free Branch 65+ Influenza Virus 2021-03-06 Completed Universit y of Vaccine,quad 00:00:00 [place] Medica l Im,preserve Free Branch 65+ Influenza Virus 2021-03-06 Completed Universit y of Vaccine,quad 00:00:00 [place] Medica l Im,preserve Free Branch 65+ Influenza Virus 2021-03-06 Completed Universit y of Vaccine,quad 00:00:00 [place] Medica l Im,preserve Free Branch 65+ Vital Signs Vital Name Observation Time Observation Value Comments Source Systolic blood 2021-05-27 02:15:00 164 mm[Hg] Univer sity of pressure [facility] Diastolic blood 2021-05-27 02:15:00 61 mm[Hg] Unive rsity of pressure [facility] Heart rate 2021-05-27 02:15:00 65 /min [facility] Respiratory rate 2021-05-27 02:15:00 25 /min [facility] Oxygen saturation in 2021-05-27 02:15:00 98 /min [facility] Arterial blood by [facility] Pulse oximetry [place] Body temperature 2021-05-26 23:26:00 37 Allie [facility] Body weight 2021-05-26 23:26:00 44.906 kg [facility] BMI 2021-05-26 23:26:00 17.54 kg/m2 [facility] Systolic blood 2021-04-28 14:55:00 159 mm[Hg] Univer sity of pressure [facility] Diastolic blood 2021-04-28 14:55:00 64 mm[Hg] Unive rsity of pressure [facility] Heart rate 2021-04-28 14:50:00 64 /min [facility] Respiratory rate 2021-04-28 14:50:00 18 /[facility] 2021-04-28 14:50:00 160 cm [facility] Body weight 2021-04-28 14:50:00 44.997 kg [facility] BMI 2021-04-28 14:50:00 17.57 kg/m2 [facility] Oxygen saturation in 2021-04-28 14:50:00 98 /min [facility] blood by [facility] Pulse oximetry Branch Procedures Procedure Date / Time Performing Clinician Source Performed PROTHROMBIN TIME / INR 2021-05-27 00:54:00 [facility] LIPASE 2021-05-26 23:47:00 Ricky Rodríguez [facility] MAGNESIUM 2021-05-26 23:47:00 Ricky Rodríguez [facility] TROPONIN I 2021-05-26 23:47:00 Ricky Rodríguez [facility] COMP. METABOLIC PANEL 2021-05-26 23:47:00 Ricky Rodríguez [facility] ([id number]) [facility] CBC WITH DIFF 2021-05-26 23:47:00 Ricky Rodríguez [facility] URINALYSIS 2021-05-26 23:47:00 Jake, K [facility] COVID-19 (ID NOW RAPID 2021-05-26 23:47:00 Ricky Rodríguez [facility] TESTING) [facility] NOTICE OF PRIVACY 2021-05-26 23:21:35 Doctor Unassigned, No Univ [facility] PRACTICES Name [facility] CONSENT/REFUSAL FOR 2021-05-26 23:21:08 [facility] Name [facility] PROTHROMBIN TIME / INR 2021-05-10 16:13:00 [place] [facility] Plan of Care Planned Activity Planned Date Details Comments Source Future Scheduled 2021-03-29 Depression screening Uni [facility] Test 00:00:00 (procedure) [code = Medical Branch 319561922] Future Scheduled 2020-12-14 INFLUENZA VACCINE [facility] Test 00:00:00 (Season Ended) [code = Medic al Branch INFLUENZA VACCINE (Season Ended)] Future Scheduled 2020-10-29 Screening for [facility] Test 00:00:00 malignant neoplasm of Medica l Branch breast (procedure) [code = 558035056] Future Scheduled [address] [facility] Test 00:00:00 Wellness Visit Medical [facility] h (procedure) [code = 218942753630553] Future Scheduled 2018 Screening for [facility] Test 00:00:00 osteoporosis Medical Branch (procedure) [code = 567081556] Future Scheduled 2018 PNEUMOCOCCAL VACCINES [facility] Test 00:00:00 65+ (1 of 1 - PPSV23) Medica l Branch [code = PNEUMOCOCCAL VACCINES 65+ (1 of 1 - PPSV23)] Future Scheduled 2017-02-05 [facility] 00:[facility]:00 blood in feces Medical [facility] h (procedure) [code = 756512834] Future Scheduled 2017-02-05 Screening for University [facility] Test 00:00:00 malignant neoplasm of Medica l Branch colon (procedure) [code = 395722073] Future Scheduled [address]ool DNA-based [facility] Test 00:00:00 colorectal cancer Medical Br anch screening (procedure) [code = 061659982208533] Future Scheduled 2003 Flexible fiberoptic [facility] Test 00:00:00 sigmoidoscopy Medical Branch (procedure) [code = 09224947] Future Scheduled 2003 Screening for [facility] Test 00:00:00 malignant neoplasm of Medica l Branch colon (procedure) [code = 097243452] Future Scheduled 2003 Zoster Recombinant Unive [facility] Test 00:00:00 Vaccine (SHINGRIX) (1 Medica l Branch of 2) [code = Zoster Recombinant Vaccine (SHINGRIX) (1 of 2)] Future Scheduled 1972 DTaP,Tdap,and Td Univers [facility] Test 00:00:00 Vaccines (1 - Tdap) Medical Branch [code = DTaP,Tdap,and Td Vaccines (1 - Tdap)] Future Scheduled 1971 Hepatitis C [facility] Test 00:00:00 (procedure) [code = Medical Branch [id number]] Future Scheduled 1969 SARS-CoV-2 (COVID-19) [facility] 00:[facility]:00 Vaccine (1) [code = Medical Branch SARS-CoV-2 (COVID-19) Vaccine (1)] Encounters Start End Encounter Admission Attending Care Care Encounter Source Date/Time Date/Time Type Type Clinicians Facility Department ID 2021-05-26 2021-05-26 Emergency X Ricky RODRÍGUEZ [facility] ERT [id number] Univers 17:30:00 20:34:00 ity of [facility] 2021-05-26 2021-05-26 Emergency Ricky Rodríguez [facility] [id number] [facility] 17:30:00 20:34:00 Benito BLACKMAN [id number] i ty of [place] [id number] [id number] [address] 2021-05-10 2021-05-10 [employer] Andre Osei Lab Main [facility] [id number] Univers 08:15:00 08:30:00 Visit [place] Dan [id number] ity of [facility] [id number] [place] PROFESS[place] [id number] Al dical NAL [address] [facility] 2021-05-10 2021-05-10 Outpatient [facility] [id number] Univers 08:15:00 08:15:00 [id number] ity of [facility] 2021-05-10 2021-05-10 [facility] [id number] Univers 08:15:00 08:15:00 [place] perez o f [facility] 2021-05-10 2021-05-10 [facility] [id number] Univers 00:00:00 00:00:00 [place] BLACKMAN [id number] ity of [facility] [place] [phone] Al dical NAL 059 [facility] 2021-05-10 2021-05-10 Telephone [facility] [id number] Univers 00:00:00 00:00:00 Jamiaca BLACKMAN 350.1.13.10 ity of [place] [phone] Al dical NAL 059 [facility] 2021-05-09 2021-05-09 Refnata Dan [facility] 1.2.840.114 [id number] Univers 00:00:00 00:00:00 Qiafallon BLACKMAN 350.1.13.10 ity of [facility] [place] [phone] [place] [id number] [facility] 2021-05-04 2021-05-04 Refnata Dan [facility] 1.2.840.114 [id number] Univers 00:00:00 00:00:00 Qiafallon BLACKMAN 350.1.13.10 ity of [place] [phone] [address] 2021-04-28 2021-04-28 Office Hima [facility] 1.2.840.114 [id number] Univers 08:40:00 09:19:00 Visit Mine ROSI 350.1.13.10 i ty of [facility] [place].2.[place].2.[place] [phone] [address] 2021-04-28 2021-04-28 Outpatient R [facility] [id number] [address] 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 Andre Osei [facility] 1.2.840.114 [id number] 11:14:44 11:29:44 Visit Lab Main Rosi 350.1.13.10 [place] 4.2.7.2.686 Professio [phone] [address] 2020-08-08 2020-08-08 Orders Doctor JOHANN 1.2.840.114 [id number] 00:00:00 00:00:00 Only Unassigned, MIKE 350.1.13.10 [facility] 4.2.7.2.686 [id number] 009 2020-08-08 2020-08-08 Fabrice Dan [facility] 1.2.669.341 [id number] 00:00:00 00:00:00 Qiamerjun Ragland 350.1.13.10 [place] 4.2.7.2.686 Professio [phone] [address] 2020-07-25 2020-07-25 Telephone [facility] 1.2.389.611 [id number] 00:00:00 00:00:00 Qiangjun Ragland 350.1.13.10 [place] 4.2.7.2.686 Professio [phone] [address] 2020-07-20 2020-07-20 [employer]ove [employer] Inspector Farnaz [facility] 1.2.840.114 [id number] 10:37:03 10:52:03 Visit Lab Main Ragland 350.1.13.10 [place] 4.2.7.2.686 Professio [phone] [address] 2020-07-20 2020-07-20 Orders Doctor JOHANN 1.2.840.114 [id number] 00:00:00 00:00:00 Only Unassigned, MIKE 350.1.13.10 [place] [facility] 4.2.7.2.686 [id number] [facility][note 3] 2020-07-20 2020-07-20 Telephone [facility] [id number] 00:00:00 00:00:00 Catrinamerzaheer Ragland 350.1.13.10 [place] 4.2.7.2.686 Professio [phone] [address] 2020-07-13 2020-07-13 [employer] Inspector Farnaz, [facility] 1.2.840.114 [id number] 09:23:20 09:38:20 Visit Lab Main Ragland 350.1.13.10 [place] 4.2.7.2.686 Professio [phone] [address] 2020-07-13 2020-07-13 Telephone [facility] [id number] 00:00:00 00:00:00 Qiamerzaheer Ragland 350.1.13.10 [place] 4.2.7.2.686 Professio [phone] [address] 2020-06-19 2020-06-19 Telephone [facility], [facility] [id number] 00:00:00 00:00:00 Rogerzaheer Campton 350.1.13.10 [place] 4.2.7.2.686 Professio [phone] [address] 2020-06-17 2020-06-17 [employer]ove [employer] Inspector Pofredy, [facility] 1.2.840.114 [id number] 09:22:55 09:37:55 Visit Lab Main Ragland 350.1.13.10 [place] 4.2.7.2.686 Professio [phone] [address] 2020-06-08 2020-06-08 Telephone [facility], [facility] 1.2.031.740 [id number] 00:00:00 00:00:00 [place] Ragland 350.1.13.10 [place] 4.2.7.2.686 Professio [phone] [address] 2020-06-07 2020-06-07 [employer] Inspector Farnaz, [facility] 1.2.840.114 [id number] 08:57:47 09:12:47 Visit Lab Main Ragland 350.1.13.10 [place] 4.2.7.2.686 Professio [phone] [address] 2020-05-16 2020-05-16 [employer]ove [employer] Inspector Farnaz, [facility] 1.2.840.114 [id number] 11:09:17 11:24:17 Visit Lab Main Ragland 350.1.13.10 [place] 4.2.7.2.686 Professio [phone] [address] 2020-05-16 2020-05-16 Orders Doctor JOHANN 1.2.840.114 [id number] 00:00:00 00:00:00 Only Unassigned, MIKE 350.1.13.10 [place] [facility] 4.2.7.2.686 [id number] [facility][note 3] 2020-05-16 2020-05-16 Telephone [facility], [facility] [id number] 00:00:00 00:00:00 [place] Ragland 350.1.13.10 [place] 4.2.7.2.686 Professio [phone] [facility] 059 [facility] 2020-05-11 2020-05-11 [employer] Inspector Farnaz, [facility] 1.2.840.114 [id number] 09:25:07 09:40:07 Visit Lab Main Ragland 350.1.13.10 [place] 4.2.7.2.686 Professio [phone] [address] 2020-05-11 2020-05-11 Telephone [facility], [facility] [id number] 00:00:00 00:00:00 [place] Campton 350.1.13.10 [place] 4.2.7.2.686 Professio [phone] [address] 2020-05-11 2020-05-11 Telephone [facility], [facility] 1.2.320.634 [id number] 00:00:00 00:00:00 Rogerzaheer Campton 350.1.13.10 [place] 4.2.7.2.686 Professio [phone] [address] 2020-05-04 2020-05-04 Telephone [facility], [facility] 1.2.038.602 [id number] 00:00:00 00:00:00 [place] Campton 350.1.13.10 [place] 4.2.7.2.686 Professio [phone] [address] 2020-05-03 2020-05-03 [employer] Inspector Farnaz, [facility] 1.2.840.114 [id number] 10:05:00 10:20:00 Visit Lab Main Ragland 350.1.13.10 [place] 4.2.7.2.686 Professio [phone] [address] 2020-05-03 2020-05-03 Orders Doctor JOHANN 1.2.840.114 [id number] 00:00:00 00:00:00 Only Unassigned, MIKE 350.1.13.10 [place] [facility] 4.2.7.2.686 [id number] 009 2020-04-27 2020-04-27 [employer] Inspector Farnaz, [facility] 1.2.840.114 [id number] 08:24:03 08:39:03 Visit Lab Main Rosi 350.1.13.10 [place] 4.2.7.2.686 Professio [phone] [facility] 353 [facility] 2020-04-27 2020-04-27 Telephone [facility] 1.2.183.322 [id number] 00:00:00 00:00:00 [place] Blackman 350.1.13.10 [place] 4.2.7.2.686 Professio [phone] [facility] 059 [facility] 2020-04-20 2020-04-20 Refill [facility] 1.2.840.114 [id number] 00:00:00 00:00:00 [place] Blackman 350.1.13.10 [place] 4.2.7.2.686 Professio [phone] [facility] 059 [facility] 2020-03-29 2020-03-29 Office [facility] 1.2.840.114 [id number] 14:32:40 15:25:41 Visit [place] Blackman 350.1.13.10 [place] 4.2.7.2.686 Professio [phone] [address] Results Test Description Test Time Test Comments Results Result Comments Source PROTHROMBIN TIME / INR 2021-05-27 01:13:26 Test Item Value Reference Range Interpretation Comme nts PROTIME PATIENT (test code = See_Comment H [Automated message] The system 5964-2) which generated this result transmitted ref erence range: 12.0 - 14.7 Sec onds. The reference range was not used to interpret this result as normal/abnormal . INR (test code = 6301-6) Nor mal INR <1.1; Warfarin Therapeutic ran ge 2.0 to 3.0 or 2.5 to 3.5, dep ending upon the indications. Lab Interpretation (test code Abnormal = 45185-2) [facility] [id number] 00:37:00 Test Item Value Reference Interpretation Comments Range TROPONIN I (test 0.005 ng/mL See_Comment [Automated code = 0537736537) message] The system which generated this result [...] biotin. Lab Interpretation Normal (test code = 71403-1) [facility]. METABOLIC PANEL (48860)2021-05-27 00:25:55 Test Item Value Reference Range Interpretation Comments NA (test code = 140 mmol/L 135-145 6403382766) K (test code = 4.1 mmol/L 3.5-5.0 8356420117) CL (test code = 103 mmol/L 98-108 1174886192) CO2 TOTAL (test code = 33 mmol/L 23-31 H 1337532842) AGAP (test code = 2-16 5218840523) BUN (test code = 33 mg/dL 7-23 H 8426070643) GLUCOSE (test code = 128 mg/dL 70-110 H 2162664823) CREATININE (test code = 1.19 mg/dL 0.50-1.04 H 7490400464) TOTAL BILI (test code = 0.4 mg/dL 0.1-1.0 3772590555) CALCIUM (test code = 9.1 mg/dL 8.6-10.6 6143553675) T PROTEIN (test code = 7.1 g/dL 6.3-8.2 4204913791) ALBUMIN (test code = 4.3 g/dL 3.5-5.0 1993331057) ALK PHOS (test code = 86 U/L 34-122 1780462803) ALTv (test code = 22 U/L 5-35 1742-6) AST(SGOT) (test code = 36 U/L 13-40 3462065611) eGFR (test code = mL/min/1.73m2 3324845685) ROBERT (test code = ROBERT) Association of [...] tests). Lab Interpretation Abnormal (test code = 19178-3) [facility] 00:25:55 Test Item Value Reference Range Interpretation Comments MAGNESIUM (test code = 0348473695) 1.9 mg/dL 1.7-2.4 Lab Interpretation (test code = Normal 40307-3) [facility]22[facility] 00:25:39 Test Item Value Reference Range Interpretation Comments LIPASE (test code = 8379727791) 222 U/L 0-220 H Lab Interpretation (test code = Abnormal 32203-7) [facility] WITH [id number] 00:06:31 Test Item Value Reference Range Interpretation Comments WBC (test code = See_Comment [Automated 3590-2) message] The sy stem which generated this [...] as normal/abnormal . HGB (test code = 9.8 g/dL 11.6-15.0 L 718-7) HCT (test code = 32.0 % 35.7-45.2 L 4544-3) MCV (test code = 100.9 fL 80.6-95.5 H 787-2) MCH (test code = 30.9 pg 25.9-32.8 785-6) MCHC (test code = 30.6 g/dL 31.6-35.1 L 786-4) RDW-SD (test code = 55.1 fL 39.0-49.9 H 12637-0) RDW-CV (test code = 14.9 % 12.0-15.5 788-0) PLT (test code = See_Comment [Automated 777-3) message] The sy stem which generated this result transmitted reference range : 166 - 358 10*3/ ?L. The reference r tali was not used to interpret this result as normal/abnormal . MPV (test code = 10.1 fL 9.5-12.9 37912-5) NRBC/100 WBC (test See_Comment [Automat ed code = 6034776186) message] The system which generated this result transmitted reference range : 0.0 - 10.0 /100 WBCs. The refer ence range was not u sed to interpret th is result as normal/abnormal . NRBC x10^3 (test code <0.01 See_Comment [Auto mated = 4721454429) message] The s ystem which generated this result transmitted reference range : 10*3/?L. The reference range was not used to interpret this result as normal/abnormal . GRAN MAT (NEUT) % 83.2 % (test code = 770-8) IMM GRAN % (test code 0.70 % = 9663658195) LYMPH % (test code = 7.5 % 736-9) MONO % (test code = 8.5 % 5905-5) EOS % (test code = 0.0 % 713-8) BASO % (test code = 0.1 % 706-2) GRAN MAT x10^3(ANC) 8.93 10*3/uL 1.88-7.09 H (test code = 1442832616) IMM GRAN x10^3 (test 0.08 10*3/uL 0.00-0.06 H code = 3630389940) LYMPH x10^3 (test code 0.81 10*3/uL 1.32-3.29 L = 731-0) MONO x10^3 (test code 0.91 10*3/uL 0.33-0.92 = 742-7) EOS x10^3 (test code = <0.03 0.03-0.39 L 711-2) BASO x10^3 (test code <0.03 0.01-0.07 = 704-7) Lab Interpretation Abnormal (test code = 58292-9) [facility] / [id number] 16:13:36 Test Item Value Reference Range Interpretation Comments PROTIME PATIENT (test See_Comment H [Auto mated message] code = 5964-2) The system [employer] generated this result transmitted ref erence range: 12.0 - 1 4.7 Seconds. The reference range was not used to int erpret this result as normal/abnormal . INR (test code = 6301-6) Nor mal INR <1.1; Warfarin Therap eutic range 2.0 to 3. 0 or 2.5 to 3.5, dep ending upon the indica tions. Lab Interpretation (test Abnormal code = 63799-0) [facility]"
[2021-05-29] MEDS ORDERED: HYDROMORPHONE HCL 0.5 MG/0.5 ML INJ ONE (21:09)
[2021-05-29] MEDS ORDERED: ONDANSETRON 4 MG/2 ML VIAL ONE (21:09)
[2021-05-29] MEDS ORDERED: NS KCL 20MEQ 1,000 ML IV ONE (21:10)
[2021-05-29] MEDS ORDERED: FAMOTIDINE 20 MG/2 ML VIAL IV ONE (21:10)
[2021-05-29 21:18] LABS: Absolute Lymphocytes (CBC) 1.1 K/uL (0.7-4.9); Hematocrit 33.1 % (36.0-45.0); Lymphocytes % 13.1 % (15.3-44.8); RBC Red Blood Cell Count 3.47 M/uL (3.86-4.86)
[2021-05-29 21:20] LABS: Protime INR 2.78
[2021-05-29 21:33] LABS: Potassium 3.7 mmol/L (3.5-5.1); Sodium Level 139 mmol/L (136-145)
[2021-05-29 21:42] LABS: ALT/SGPT 31 U/L (12-78); AST/SGOT 22 U/L (15-37); Albumin 3.5 g/dL (3.4-5.0); Alkaline Phosphatase 79 U/L (45-117); BUN Blood Urea Nitrogen 22 mg/dL (7-18); Bicarbonate 31 mmol/L (21-32); Bilirubin Direct < 0.1 mg/dL (0-0.2); Bilirubin Total 0.3 mg/dL (0.2-1.0); Glucose Level 120 mg/dL (74-106); Phosphorus 3.6 mg/dL (2.5-4.9); Protein, Total 7.1 g/dL (6.4-8.2)
[2021-05-29 21:49] LABS: NT PRO-BNP 2039 pg/mL (<125)
--- NOTE | 2021-05-29 22:07 | RAD REPORT ---
EXAM DESCRIPTION: RAD - Chest Single View - 05/29/2021 9:13 pm CLINICAL HISTORY: CHEST PAIN Chest pain. COMPARISON: Chest Single View dated 02/25/2021; Chest Single View dated 01/31/2021; Chest Single Vie w dated 01/24/2021; Chest Single View dated 01/18/2021 FINDINGS: Portable technique limits examination quality. The lungs are emphysematous but grossly clear. The heart is moderately enlarged. No displaced fractur es.Sternotomy wires present. Aortic atherosclerosis. IMPRESSION: COPD.
[2021-05-29 22:22] LABS: Urine Blood Trace-lysed (Negative); Urine Glucose Negative (Negative); Urine Protein Negative (Negative)
--- NOTE | 2021-05-29 22:26 | ER ---
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 Torres told the patient to come to [facility] the ER for a low potassium level this morning. She took 1 potassium pill she bought from [employer] at 1pm today . She states she is having chest burning and pressure that started today. Coronavirus screen: Vaccine status: Patient reports being unvaccinated. Client denies travel out of the [place] in the last 14 days. Ebola Screen: No symptoms or risks identified at this time. Initial Sepsis Screen: Does the patient meet any 2 criteria? No. Patient's initial sepsis screen is negative. Risk Assessment: Do you want to hurt yourself or someone else? Patient reports no desire to harm self or others. Onset of symptoms was May 29, 2021. 20:36 Method Of Arrival: Ambulatory st1 20:36 Acuity: JAKUB 3 st1 Triage Assessment: 20:40 General: Appears in no apparent distress. comfortable, slender, well groomed, Behavior st1 is calm, cooperative. Pain: Complains of pain in chest Pain does not radiate. Pain currently is 9 out of 10 on a pain scale. Quality of pain is described as burning. EENT: No deficits noted. Neuro: No deficits noted. Respiratory: No deficits noted. Musculoskeletal: No deficits noted. Historical: - Allergies: 20:39 Fentanyl; itching; st1 20:39 Morphine; st1 - Home Meds: 20:39 aspirin 81 mg Oral tab 1 tab once daily [Active]; atorvastatin 20 mg Oral tab 1 tab st1 once daily [Active]; Coumadin 2.5 mg Oral tab 1 tab once daily [Active]; gabapentin Oral [Active]; [place] 7.5-325 mg Oral tab 1 tab every 4 hours [Active]; pantoprazole Oral [Active]; sotalol 80 mg Oral tab 2 times per day [Active]; - PMHx: 20:39 Atrial Fib; Back pain; GERD; Hyperlipidemia; Hypertension; mechanical heart valve; st1 - PSHx: 20:39 Aortic valve replacement; st1 - Immunization history:: Adult Immunizations up to date, Client reports having NOT received the Covid vaccine. Pneumococcal vaccine is up to date, Flu vaccine is up to date. - Social history:: Smoking status: Patient denies any tobacco usage or history of. Patient/guardian denies using alcohol, street drugs, tobacco products. - Family history:: not pertinent. - Code Status:: Full code. Screenin:00 Abuse screen: Denies threats or abuse. Denies injuries from another. Nutritional tk1 screening: No deficits noted. Tuberculosis screening: No symptoms or risk factors identified. Fall Risk None identified. Assessment: 21:00 General: Appears distressed, uncomfortable, slender, Behavior is calm, cooperative, tk1 appropriate for age. Pain: Complains of pain in chest Pain does not radiate. Pain currently is 9 out of 10 on a pain scale. Quality of pain is described as aching, Pain began 1 day ago. Is continuous, Aggravated by coughing. Pain: Is. Neuro: Level of Consciousness is awake, alert, obeys commands, Oriented to person, place, time, Latin American Studies Director are equal bilaterally Moves all extremities. Full function Gait is steady, Speech is normal, Facial symmetry appears normal, Reports. Cardiovascular: Reports chest pain, Denies Heart tones S1 S2 Rhythm is sinus rhythm. Respiratory: Reports cough that is Airway is patent Trachea midline Respiratory effort is even, unlabored, Respiratory pattern is regular, Breath sounds are diminished bilaterally. in left lower lobe and right lower lobe. GI: No deficits noted. No signs and/or symptoms were reported involving the gastrointestinal system. : No deficits noted. No signs and/or symptoms were reported regarding the genitourinary system. EENT: No deficits noted. No signs and/or symptoms were reported regarding the EENT system. 22:23 Reassessment: Patient appears in no apparent distress at this time. No changes from tk1 previously documented assessment. Patient and/or family updated on plan of care and expected duration. Pain level reassessed. Patient is alert, oriented x 3, equal unlabored respirations, skin warm/dry/pink. 23:53 Reassessment: Patient appears in no apparent distress at this time. No changes from tk1 previously documented assessment. Patient and/or family updated on plan of care and expected duration. Pain level reassessed. Patient is alert, oriented x 3, equal unlabored respirations, skin warm/dry/pink. Vital Signs: 20:36 BP 167 / 66; Pulse 57; Resp 16; Temp 97.4; Pulse Ox 100% ; Weight 45.36 kg; Height 5 st1 ft. 3 in. (160.02 cm); Pain 9/10; 21:00 BP 138 / 47 RA Supine (auto/reg); Pulse 57 MON; Resp 20 S; Temp 97.8(O); Pulse Ox 100% tk1 ; Pain 9/10; 22:00 BP 167 / 57 RA Supine (auto/reg); Pulse 55 MON; Resp 18 S; Temp 98(O); Pulse Ox 100% ; tk1 Pain 6/10; 22:11 Pain 6/10; tk1 23:00 BP 136 / 52 RA Supine (auto/reg); Pulse 5; Resp 20 S; Temp 98.3; Pulse Ox 99% on R/A; tk1 23:45 BP 140 / 49 RA Supine (auto/reg); Pulse 50 MON; Resp 20 S; Pulse Ox 99% on R/A; tk1 20:36 Body Mass Index 17.71 (45.36 kg, 160.02 cm) st1 Vitals: 23:00 Cardiac Rhythm Assessment Regular Sinus thor. tk1 ED Course: 20:32 Patient arrived in ED. ja2 20:39 Triage completed. st1 20:42 Arm band placed on left wrist. st1 20:44 Gab Del Real MD is Attending Physician. [facility] 20:50 Samantha Mcdaniels is Primary Nurse. tk1 20:58 Missed attempt(s): 18 gauge in right forearm. 20 gauge in right forearm. Bleeding tk1 controlled, band aid applied, catheter tip intact. 20:59 Basic Metabolic Panel Sent. tk1 21:00 Patient has correct armband on for positive identification. Bed in low position. Call tk1 light in reach. Side rails up X2. erco machine operator on. Pulse ox on. NIBP on. Warm blanket given. 21:00 CBC with Diff Sent. tk1 21:00 LFT's Sent. tk1 21:00 Magnesium Sent. tk1 21:00 NT PRO-BNP Sent. tk1 21:00 PT-INR Sent. tk1 21:00 Troponin HS Sent. tk1 21:00 No provider procedures requiring assistance completed. Patient maintains SpO2 tk1 saturation greater than 95% on room air. 21:11 Inserted saline lock: 20 gauge in left antecubital area, using aseptic technique. lt3 21:11 Flu and/or RSV swab sent to lab. lt3 21:11 SARS-COV-2 RT PCR (Document "Date of Onset" if Symptomatic) Sent. tk1 21:13 XRAY Chest (1 view) In Process Unspecified. EDMS 21:16 EKG done, by ED staff, reviewed by Gab Del Real MD. lt3 21:17 SARS-COV-2 RT PCR (Document "Date of Onset" if Symptomatic) Sent. lt3 21:22 TSH Sent. tk1 21:23 Phosphorus Sent. tk1 21:23 Basic Metabolic Panel Sent. tk1 21:23 LFT's Sent. tk1 21:23 Magnesium Sent. tk1 21:23 NT PRO-BNP Sent. tk1 21:23 Troponin HS Sent. tk1 22:00 IV is patent, is intact. tk1 22:25 Evin Dumont MD is Hospitalizing Provider. milton 23:45 IV is patent, is intact. tk1 Administered Medications: 21:40 Discontinued: NS 0.9% with KCl 20 mEq/L 1000 ml IV at 125 ml/hr continuous milton 21:21 Drug: Zofran (Ondansetron) 4 mg Route: IVP; Rate: bolus; Infused Over: 2 mins; Site: tk1 left antecubital; 22:10 Follow up: Response: Nausea is decreased tk1 21:22 Drug: NS 0.9% with KCl 20 mEq/L 1000 ml Route: IV; Rate: 125 ml/hr; Site: left tk1 antecubital; Delivery: Primary tubing; 21:22 Drug: Pepcid (famotidine) 20 mg Route: IVP; Rate: bolus; Infused Over: 2 mins; Site: tk1 left antecubital; 22:12 Follow up: Response: No adverse reaction tk1 21:22 Drug: Dilaudid (HYDROmorphone) 0.5 mg Route: IVP; Rate: bolus; Infused Over: 2 mins; tk1 Site: left antecubital; 22:11 Follow up: Pain 6/10 Adult; Response: Pain is decreased tk1 22:10 Drug: NS 0.9% with KCl 20 mEq/L 1000 ml Route: IV; Rate: 30 ml/hr; Site: left tk1 antecubital; Delivery: Primary tubing; Output: 22:00 Urine: 250ml (Voided); Total: 250ml. tk1 Outcome: 22:26 Decision to Hospitalize by Provider. milton 23:56 Admitted to ICU accompanied by kirk, via wheelchair, room 1, with chart, Report called tk1 to PHILLIP Munguia 23:56 Condition: stable 05/30 00:16 Patient left the ED. tk1 Signatures: Dispatcher [employer] EDGab Coffey MD MD cha Alexander, Jessica ja2 Kaleigh Blum 3 Samantha Mcdaniels tk1 Kinjal Ferrari RN RN st1 Corrections: (The following items were deleted from the chart) 05/29 20:42 20:36 Chief complaint: Patient states: the patients Dr. Torres told the patient to come st1 to the ER for a low potassium level this morning. She took 1 potassium pill she bought from [employer] at 1pm today st1 21:14 21:11 PHOSPHORUS+C.LAB.BRZ drawn and sent. tk1 EDMS 21:25 21:00 Pulse 57bpm; MonitorResp 20bpm; Spontaneous; Pulse Ox 100%; Temp 97.8F Oral; Pain tk1 12/23; tk1
--- NOTE | 2021-05-29 22:27 | EDPHYS ---
Physician Documentation [facility] Name: Michelle Saavedra Age: 66 yrs Sex: Female : 1955 Arrival Date: 05/29/2021 Time: 20:32 Bed 20 Private MD: ED Physician Gab Del Real HPI: 05/29 20:52 This 66 yrs old Female presents to ER via Ambulatory with complaints of Chest milton Pain, POTASSIUM LOW. 20:52 The patient or guardian reports chest pain that is located primarily in the substernal milton area. Onset: 10 hour(s) ago. The pain does not radiate. Associated signs and symptoms: The patient has no apparent associated signs or symptoms. The chest pain is described as a heaviness, a pressure. Duration: The patient or guardian reports a single episode, that is still ongoing. Severity of pain: At its worst the pain was mild moderate in the emergency department the pain is unchanged. Historical: - Allergies: 20:39 Fentanyl; itching; st1 20:39 Morphine; st1 - Home Meds: 20:39 aspirin 81 mg Oral tab 1 tab once daily [Active]; atorvastatin 20 mg Oral tab 1 tab st1 once daily [Active]; Coumadin 2.5 mg Oral tab 1 tab once daily [Active]; gabapentin Oral [Active]; [place] 7.5-325 mg Oral tab 1 tab every 4 hours [Active]; pantoprazole Oral [Active]; sotalol 80 mg Oral tab 2 times per day [Active]; - PMHx: 20:39 Atrial Fib; Back pain; GERD; Hyperlipidemia; Hypertension; mechanical heart valve; st1 - PSHx: 20:39 Aortic valve replacement; st1 - Immunization history:: Adult Immunizations up to date, Client reports having NOT received the Covid vaccine. Pneumococcal vaccine is up to date, Flu vaccine is up to date. - Social history:: Smoking status: Patient denies any tobacco usage or history of. Patient/guardian denies using alcohol, street drugs, tobacco products. - Family history:: not pertinent. - Code Status:: Full code. ROS: 20:52 Constitutional: Negative for fever, chills, and weight loss, Eyes: Negative for injury, milton pain, redness, and discharge, ENT: Negative for injury, pain, and discharge, Neck: Negative for injury, pain, and swelling, Respiratory: Negative for shortness of breath, cough, wheezing, and pleuritic chest pain, Abdomen/GI: Negative for abdominal pain, nausea, vomiting, diarrhea, and constipation, Back: Negative for injury and pain, : Negative for injury, bleeding, discharge, and swelling, MS/Extremity: Negative for injury and deformity, Skin: Negative for injury, rash, and discoloration, Neuro: Negative for headache, weakness, numbness, tingling, and seizure, Psych: Negative for depression, anxiety, suicide ideation, homicidal ideation, and hallucinations, Allergy/Immunology: Negative for hives, rash, and allergies, Endocrine: Negative for neck swelling, polydipsia, polyuria, polyphagia, and marked weight changes, Hematologic/Lymphatic: Negative for swollen nodes, abnormal bleeding, and unusual bruising. 20:52 Cardiovascular: Positive for chest pain, of the chest. Exam: 20:52 Constitutional: This is a well developed, well nourished patient who is awake, alert, milton and in no acute distress. Head/Face: Normocephalic, atraumatic. Eyes: Pupils equal round and reactive to light, extra-ocular motions intact. Lids and lashes normal. Conjunctiva and sclera are non-icteric and not injected. Cornea within normal limits. Periorbital areas with no swelling, redness, or edema. ENT: Nares patent. No nasal discharge, no septal abnormalities noted. Tympanic membranes are normal and external auditory canals are clear. Oropharynx with no redness, swelling, or masses, exudates, or evidence of obstruction, uvula midline. Mucous membranes moist. Neck: Trachea midline, no thyromegaly or masses palpated, and no cervical lymphadenopathy. Supple, full range of motion without nuchal rigidity, or vertebral point tenderness. No Meningismus. Chest/axilla: Normal chest wall appearance and motion. Nontender with no deformity. No lesions are appreciated. Cardiovascular: Regular rate and rhythm with a normal S1 and S2. No gallops, murmurs, or rubs. Normal PMI, no JVD. No pulse deficits. Respiratory: Lungs have equal breath sounds bilaterally, clear to auscultation and percussion. No rales, rhonchi or wheezes noted. No increased work of breathing, no retractions or nasal flaring. Abdomen/GI: Soft, non-tender, with normal bowel sounds. No distension or tympany. No guarding or rebound. No evidence of tenderness throughout. Back: No spinal tenderness. No costovertebral tenderness. Full range of motion. Female : Normal external genitalia. Skin: Warm, dry with normal turgor. Normal color with no rashes, no lesions, and no evidence of cellulitis. MS/ Extremity: Pulses equal, no cyanosis. Neurovascular intact. Full, normal range of motion. Neuro: Awake and alert, GCS 15, oriented to person, place, time, and situation. Cranial nerves II-XII grossly intact. Motor strength 5/5 in all extremities. Sensory grossly intact. Cerebellar exam normal. Normal gait. Psych: Awake, alert, with orientation to person, place and time. Behavior, mood, and affect are within normal limits. 20:52 Musculoskeletal/extremity: DVT Exam: No signs of deep vein thrombosis. no pain, no swelling, no tenderness, negative Homans' sign noted on exam, no appreciated bluish discoloration, no erythema, no increased warmth. 21:18 ECG was reviewed by the Attending Physician. [facility] Vital Signs: 20:36 BP 167 / 66; Pulse 57; Resp 16; Temp 97.4; Pulse Ox 100% ; Weight 45.36 kg; Height 5 st1 ft. 3 in. (160.02 cm); Pain 9/10; 21:00 BP 138 / 47 RA Supine (auto/reg); Pulse 57 MON; Resp 20 S; Temp 97.8(O); Pulse Ox 100% tk1 ; Pain 9/10; 22:00 BP 167 / 57 RA Supine (auto/reg); Pulse 55 MON; Resp 18 S; Temp 98(O); Pulse Ox 100% ; tk1 Pain 6/10; 22:11 Pain 6/10; tk1 23:00 BP 136 / 52 RA Supine (auto/reg); Pulse 5; Resp 20 S; Temp 98.3; Pulse Ox 99% on R/A; tk1 23:45 BP 140 / 49 RA Supine (auto/reg); Pulse 50 MON; Resp 20 S; Pulse Ox 99% on R/A; tk1 20:36 Body Mass Index 17.71 (45.36 kg, 160.02 cm) st1 MDM: 20:44 Patient medically screened. milton 20:55 Differential diagnosis: abnormal EKG, anxiety, chest wall pain, cholecystitis, milton Cholelithiasis costochondritis, esophagitis, hiatal hernia, pancreatitis, pleurisy, stable angina. HEART Score: History: Moderately Suspicious (1), ECG: Normal (0), Age: > or = 65 years (2), Risk Factors: > or = 3 Risk factors for atherosclerotic disease (2), [Hypercholesterolemia] [Hypertension] [DM] [+ Family HX] Troponin: < or = 1 x Normal Limit (0). The patient was not given aspirin in the Emergency Department. Not indicated due to patient's past medical history. The patient's deep vein thrombosis risk score was calculated as follows: Total Score: 0. This patient was found to be at low risk for a deep vein thrombosis by using the Well's assessment criteria. The patient's pulmonary embolism risk score was calculated as follows: Total Score: 0-2 points. This patient was found to be at low risk for a pulmonary embolism by using the Well's assessment criteria. ADELE Risk Score: 1 - patient's age is greater or equal to 65 years, 1 - Three or more CAD risk factors, 1- Known CAD, TOTAL SCORE = 3. Data reviewed: vital signs, nurses notes, lab test result(s), EKG, radiologic studies, plain films. Data interpreted: engine monitor: rate is 57 beats/min, rhythm is regular, Pulse oximetry: on room air is 100 %. Test interpretation: by ED physician or midlevel provider: ECG, plain radiologic studies. Counseling: I had a detailed discussion with the patient and/or guardian regarding: the historical points, exam findings, and any diagnostic results supporting the discharge/admit diagnosis, lab results, radiology results, the need for further work-up and treatment in the hospital. 05/29 20:46 Order name: Basic Metabolic Panel; Complete Time: 22:23 milton 05/29 20:46 Order name: CBC with Diff; Complete Time: 21:39 milton 05/29 20:46 Order name: LFT's; Complete Time: 22:23 milton 05/29 20:46 Order name: Magnesium; Complete Time: 22:23 milton 05/29 20:46 Order name: NT PRO-BNP; Complete Time: 21:58 [facility] 05/29 20:46 Order name: PT-INR; Complete Time: 21:35 [facility] 05/29 20:46 Order name: Troponin HS; Complete Time: 22:23 [facility] 05/29 20:46 Order name: XRAY Chest (1 view); Complete Time: 22:23 [facility] 05/29 20:46 Order name: TSH; Complete Time: 22:23 [facility] 05/29 20:52 Order name: SARS-COV-2 RT PCR (Document "Date of Onset" if Symptomatic); Complete Time: milton :05/29 21:14 Order name: Phosphorus; Complete Time: 22: EDDC 05/29 22:22 Order name: Urine Dipstick-Ancillary; Complete Time: 22:23 [facility] 05/29 20:46 Order name: EKG; Complete Time: 20:46 [facility] 05/29 20:46 Order name: Cardiac monitoring; Complete Time: 20:59 [facility] 05/29 20:46 Order name: EKG - Nurse/Tech; Complete Time: 20:59 [facility] 05/29 20:46 Order name: IV Saline Lock; Complete Time: 20:59 [facility] 05/29 20:46 Order name: Labs collected and sent; Complete Time: 20:59 [facility] 05/29 20:46 Order name: O2 Per Protocol; Complete Time: 20:51 [facility] 05/29 20:46 Order name: O2 Sat Monitoring; Complete Time: 20:51 [facility] 05/29 20:46 Order name: Urine Dipstick-Ancillary (obtain specimen); Complete Time: 22:11 milton EC:18 Rate is 52 beats/min. Rhythm is regular. QRS Victor is Normal. PA interval is normal. QRS milton interval is normal. QT interval is normal. No Q waves. T waves are Normal. No ST changes noted. Clinical impression: Normal ECG, Sinus bradycardia, and No evidence of ischemia. Interpreted by me. Reviewed by me. Administered Medications: 21:40 Discontinued: NS 0.9% with KCl 20 mEq/L 1000 ml IV at 125 ml/hr continuous milton 21:21 Drug: Zofran (Ondansetron) 4 mg Route: IVP; Rate: bolus; Infused Over: 2 mins; Site: tk1 left antecubital; 22:10 Follow up: Response: Nausea is decreased tk1 21:22 Drug: NS 0.9% with KCl 20 mEq/L 1000 ml Route: IV; Rate: 125 ml/hr; Site: left tk1 antecubital; Delivery: Primary tubing; 21:22 Drug: Pepcid (famotidine) 20 mg Route: IVP; Rate: bolus; Infused Over: 2 mins; Site: tk1 left antecubital; 22:12 Follow up: Response: No adverse reaction tk1 21:22 Drug: Dilaudid (HYDROmorphone) 0.5 mg Route: IVP; Rate: bolus; Infused Over: 2 mins; tk1 Site: left antecubital; 22:11 Follow up: Pain 6/10 Adult; Response: Pain is decreased tk1 22:10 Drug: NS 0.9% with KCl 20 mEq/L 1000 ml Route: IV; Rate: 30 ml/hr; Site: left tk1 antecubital; Delivery: Primary tubing; Disposition Summary: 05/29/21 22:26 Hospitalization Ordered Hospitalization Status: Observation milton Provider: Evin Dumont cha Condition: Stable milton Problem: new milton Symptoms: have improved milton Bed/Room Type: Standard [facility] Location: Intensive Care Unit(05/29/21 23:27) Room Assignment: 1-(05/29/21 23:27) Diagnosis - Chest pain, unspecified milton - Cardiomegaly milton - [facility] (current) use of anticoagulants milton Forms: - Medication Reconciliation Form milton - SBAR form milton Signatures: Dispatcher [employer] EDMS Albertina Watkins RN RN Gab March MD MD cha Attema, Lee, DIETETIC AIDE-C DIETETIC AIDE-Cla1 Samantha Mcdaniels tk1 Kinjal Ferrari, RN RN st1 Corrections: (The following items were deleted from the chart) 21:14 21:00 PHOSPHORUS+C.LAB.BRZ ordered. EDDC EDDC 23: 22:26 Telemetry/MedSurg (observation) [facility] 23: 22:26 milton
--- NOTE | 2021-05-29 23:43 | P.HP ---
Certification for Inpatient Patient admitted to: Observation With expected LOS: <2 Midnights Patient will require the following post-hospital care: None Practitioner: I am a practitioner with admitting privileges, knowledge of patient current condition, hospital course, and medical plan of care. Services: Services provided to patient in accordance with Admission requirements found in Title 42 Section 412.3 of the Code of Federal Regulations Patient History Date of Service: 05/29/21 Primary Care Provider: Dr. Dobson Reason for admission: Chest pain History of Present Illness: 66-year-old female with history of mechanical aortic valve on chronic anticoagulation, atrial fibrillation, chronic diastolic heart failure, hypertension, hyperlipidemia, GERD and chronic pain presented to the emergency department for chest pain and reports that her potassium was low. Patient reports pressure-like chest pain radiating to the left arm intermittently over the course of the last 24 hours. Patient was evaluated in the emergency department her labs were significant for hemoglobin 10.6 medical 33.1 INR 2.78 sodium 139 GFR 51 glucose 120 BNP 2039 initial troponin negative EKG without acute changes, ED provider wishes to admit under observation for chest pain. Allergies morphine Allergy (Intermediate, Verified 04/27/20 23:29) panic ATTACK; shaking fentanyl Allergy (Verified 04/27/20 23:29) Itching Home Medications: Atorvastatin Calcium [Lipitor*] 40 mg PO DAILY 01/25/21 Gabapentin 300 mg PO DAILY 01/25/21 Pantoprazole [Protonix Tab*] 40 mg PO DAILY 01/25/21 Amiodarone HCl [Cordarone*] 400 mg PO SEECOM #72 tab 01/29/21 Ascorbic Acid [Vitamin C*] 500 mg PO TID #90 tablet 01/29/21 Cholecalciferol (Vitamin D3) [Vitamin D 1000 Iu Tab*] 2,000 unit PO DAILY #60 tab 01/29/21 Ensure Enlive 237 ml PO BID #60 can 01/29/21 Metoprolol Tartrate [Lopressor*] 12.5 mg PO BID 6AM 6PM #60 tab 01/29/21 Thiamine HCl [Vitamin B-1*] 100 mg PO DAILY #30 tablet 01/29/21 Warfarin Sodium [Coumadin*] 1 mg PO DAILY 5 PM #30 tab 01/29/21 Zinc Sulfate [Zinc Sulfate*] 220 mg PO DAILY #30 cap 01/29/21 - Past Medical/Surgical History Diabetic: No -: chronic back pain -: depression -: gallstones -: kidney infection -: GERD -: mechanical aortic valve -: palpitations -: Atrial fibrillation on warfarin -: Chronic diastolic congestive heart failure -: aortic valve replacement -: cardioversion -: tubal ligation Psychosocial/ Personal History: Patient lives at home with her children - Family History Brother -: Heart disease, Cancer Notes: heart attack Mother -: Heart disease, Diabetes Notes: of heart attack Father -: Heart disease Notes: of heart attack Sister -: Heart disease, Diabetes, Cancer Notes: sisters x2 - DM. sister x1 - heart attack. sister- lung cancer - Social History Alcohol use: No CD- Drugs: No Caffeine use: No Place of Residence: Home Review of Systems 10-point ROS is otherwise unremarkable Cardiovascular: Chest Pain Physical Examination - Physical Exam General: Alert, In no apparent distress, Oriented x3 HEENT: Atraumatic, PERRLA, Mucous membr. moist/pink, EOMI, Sclerae nonicteric Neck: Supple, 2+ carotid pulse no bruit, No LAD, Without JVD or thyroid abnormality Respiratory: Clear to auscultation bilaterally, Normal air movement Cardiovascular: Regular rate/rhythm, Normal S1 S2 Gastrointestinal: Normal bowel sounds, No tenderness Musculoskeletal: No tenderness Integumentary: No rashes Neurological: Normal gait, Normal speech, Normal strength at 5/5 x4 extr, Normal tone, Normal affect Lymphatics: No axilla or inguinal lymphadenopathy - Studies Laboratory Data (last 24 hrs) 05/29/21 21:05: PT 32.3 H, INR 2.78 05/29/21 21:05: WBC 8.40, Hgb 10.6 L, Hct 33.1 L, Plt Count 303 05/29/21 21:05: Sodium 139, Potassium 3.7, BUN 22 H, Creatinine 1.07, Glucose 120 H, Phosphorus 3.6, Magnesium 2.0, Total Bilirubin 0.3, AST 22, ALT 31, Alkaline Phosphatase 79 05/29/21 21:00: Phosphorus Cancelled Assessment and Plan - Plan Assessment: Chest pain rule out ACS Chronic diastolic congestive heart failure History of mechanical aortic valve/atrial fibrillation on chronic anticoagulation with warfarintherapeutic INR Hypertension Chronic pain hyperlipidemia Plan: Chest pain rule out ACS: Trend troponin, cardiology consult in place. Continue medications including beta-poornima, atorvastatin, aspirin. Chronic diastolic congestive heart failure: Obtain and continue medication no signs of significant overload at this time. History of mechanical aortic valve/atrial fibrillation on chronic antic oagulation with warfarintherapeutic INR: Continue home dose of Coumadin, will need to confirm patient believes it is 2.5 mg p.o. daily. Hypertension: Obtain and continue medications Chronic pain:Obtain and continue medications hyperlipidemia:Obtain and continue medications DVT PPX: Continue Coumadin Code status: Full Discharge Plan: Home Plan to discharge in: 24 Hours - Advance Directives Does patient have a Living Will: No Does patient have a Durable POA for Healthcare: No - Code Status/Comfort Care Code Status Assessed: Yes (Full code) Critical Care: No Time Spent Managing Pts Care (In Minutes): 55
[2021-05-30] MEDS ORDERED: TRAMADOL HCL 50 MG TAB PO PRN (00:38)
[2021-05-30 00:52] VITALS: O2SAT 99
[2021-05-30 01:08] VITALS: BMI 13.6
[2021-05-30] MEDS: HYDROMORPHONE HCL 0.5 MG/0.5 ML INJ IV PRN ×2 (02:47→08:24)
[2021-05-30] MEDS ORDERED: ONDANSETRON 4 MG/2 ML VIAL IV PRN (03:00)
[2021-05-30 05:15] LABS: Protime INR 2.87
[2021-05-30 05:18] LABS: Absolute Lymphocytes (CBC) 1.2 K/uL (0.7-4.9); Hematocrit 31.4 % (36.0-45.0); Lymphocytes % 13.2 % (15.3-44.8); MPV 8.5 fL (7.6-11.3); RBC Red Blood Cell Count 3.27 M/uL (3.86-4.86)
[2021-05-30 05:35] LABS: Albumin 3.2 g/dL (3.4-5.0); Bilirubin Total 0.3 mg/dL (0.2-1.0); Potassium 4.4 mmol/L (3.5-5.1); Protein, Total 6.7 g/dL (6.4-8.2); Troponin High Sensitivity 11.3 pg/mL (<58.9)
[2021-05-30] MEDS ORDERED: METOPROLOL TAR 25 MG TAB PO SCH (06:00)
[2021-05-30] MEDS ORDERED: ASPIRIN EC 81 MG TAB PO SCH (09:00)
[2021-05-30] MEDS ORDERED: GABAPENTIN 300 MG CAP PO SCH (09:00)
[2021-05-30] MEDS ORDERED: ATORVASTATIN 40 MG TAB PO SCH (09:00)
[2021-05-30] MEDS ORDERED: PANTOPRAZOLE 40MG TABLET PO SCH (09:00)
--- NOTE | 2021-05-30 10:15 | EKG ---
Test Date: 2021-05-29 Test Time: 21:16:41 Member Of Congress: JEANETTET MEASUREMENT RESULTS: Intervals: Rate: 52 UT: 168 QRSD: 96 QT: 450 QTc: 418 [place]: P: 74 UT: 168 QRS: 37 T: 56 INTERPRETIVE STATEMENTS: Sinus bradycardia Otherwise normal ECG Compared to ECG 02/25/2021 17:22:51 Junctional rhythm no longer present ST (T wave) deviation no longer present Electronically Signed On 05-30-21 10:14:28 CLINICAL ACCOUNT EXECUTIVE by Soren Carter
[2021-05-30 11:04] VITALS: TEMP 97.9
[2021-05-30 12:11] VITALS: BP 137/52
[2021-05-30] MEDS ORDERED: WARFARIN SODIUM 2.5 MG TAB PO SCH (17:00)
[2021-05-30] MEDS ORDERED: WARFARIN SODIUM 2 MG TAB PO SCH (17:00)
--- NOTE | 2021-05-30 18:37 | P.DS ---
Admission Date: 05/29/21 Discharge Date: 05/30/21 Primary Care Provider: Dr. Dobson Disposition: ROUTINE DISCHARGE Discharge Condition: GOOD Reason for Admission: Chest pain Consultations: Cardiology - Dr. Carter Procedures: Problem list Chest pain / L shoulder pain Chronic diastolic congestive heart failure History of mechanical aortic valve/atrial fibrillation on chronic anticoagulation with warfarintherapeutic INR Hypertension Chronic pain hyperlipidemia Brief History of Present Illness: 66-year-old female with history of mechanical aortic valve on chronic anticoagulation, atrial fibrillation, chronic diastolic heart failure, hypertension, hyperlipidemia, GERD and chronic pain presented to the emergency department for chest pain and reports that her potassium was low. Patient reports pressure-like chest pain radiating to the left arm intermittently over the course of the last 24 hours. Patient was evaluated in the emergency department her labs were significant for hemoglobin 10.6 medical 33.1 INR 2.78 sodium 139 GFR 51 glucose 120 BNP 2039 initial troponin negative EKG without acute changes, ED provider wishes to admit under observation for chest pain. Hospital Course: Patient's chest pain was evaluated by EKG, serial troponin levels, telemetry, chest x-ray which were all negative for any acute process. ACS was effectively ruled out. Cardiology was consulted, recommended outpatient stress test. Patient stated she has an appointment with her multi site leasing consultant tomorrow and will further discuss with them. Patient seemed to have left shoulder discomfort, stated this is been ongoing for a few months since she felt like she pulled it. Recommended follow-up with sports medicine physician No changes in medications on discharge. Vital Signs/Physical Exam: Temp Pulse Resp BP Pulse Ox 97.9 F 59 17 137/52 L 98 05/30/21 08:00 05/30/21 11:00 05/30/21 11:00 05/30/21 11:05/30/21 10:00 General: Alert, In no apparent distress, Oriented x3 HEENT: Sclerae nonicteric Neck: Supple Respiratory: Clear to auscultation bilaterally, Normal air movement Cardiovascular: No edema, Regular rate/rhythm Gastrointestinal: Soft and benign, Non-distended, No tenderness Musculoskeletal: Other (mild discomfort with L shoulder ROM) Integumentary: No significant lesion Neurological: Normal speech, Normal affect Laboratory Data at Discharge: WBC 8.80 K/uL (4.3-10.9) 05/30/21 04:55 Hgb 10.0 g/dL (12.0-15.0) L 05/30/21 04:55 Hct 31.4 % (36.0-45.0) L 05/30/21 04:55 Plt Count 287 K/uL (152-406) 05/30/21 04:55 PT 33.3 SECONDS (9.5-12.5) H 05/30/21 04:55 INR 2.87 05/30/21 04:55 Sodium 137 mmol/L (136-145) 05/30/21 04:55 Potassium 4.4 mmol/L (3.5-5.1) 05/30/21 04:55 BUN 23 mg/dL (7-18) H 05/30/21 04:55 Creatinine 1.02 mg/dL (0.55-1.3) 05/30/21 04:55 Glucose 107 mg/dL (74-106) H 05/30/21 04:55 Phosphorus 3.6 mg/dL (2.5-4.9) 05/29/21 21:05 Magnesium 2.0 mg/dL (1.8-2.4) 05/30/21 04:55 Total Bilirubin 0.3 mg/dL (0.2-1.0) 05/30/21 04:55 AST 19 U/L (15-37) 05/30/21 04:55 ALT 29 U/L (12-78) 05/30/21 04:55 Alkaline Phosphatase 78 U/L (45-117) 05/30/21 04:55 Home Medications: Atorvastatin Calcium [Lipitor*] 80 mg PO DAILY 01/25/21 Gabapentin 300 mg PO BID 01/25/21 Pantoprazole [Protonix Tab*] 40 mg PO BID 01/25/21 Metoprolol Tartrate [Lopressor*] 12.5 mg PO BID 6AM 6PM #60 tab 01/29/21 Aspirin [Aspirin EC 81 MG] 1 tab PO DAILY 05/30/21 Warfarin Sodium [Coumadin*] 1 mg PO SEECOM 05/30/21 Warfarin Sodium [Coumadin*] 2 mg PO SEECOM 05/30/21 Physician Discharge Instructions: PROBLEM: Chest Pain GOAL: Clear understanding of disease process INSTRUCTIONS: No new prescriptions at this time. Continue current medications as prescribed. Please follow up with Cardiology as instructed. Follow up with PCP in 1-2 weeks. If symptoms worsen, please go to the ER or call 911. If you have any questions regarding hospital stay, feel free to call . Diet: Heart Healthy Activity: As Tolerated DME DME: Date Ordered: Name of Company: [employer] Services Needed: None Name of Company: Date or Referral: IMMUNIZATION Influenza Vaccine Indicated: No Influenza Vaccine Given: Date Given: Pneumonia Vaccine Indicated: No Pneumonia Vaccine Given: Date Given: Followup: Soren Carter MD [ACTIVE - CAN ADMIT] - Saurabh Dobson MD [Primary Care Provider] - Time spent managing pt's care (in minutes): 45
[2021-05-30] MEDS ORDERED: ATORVASTATIN 20 MG TAB PO SCH (21:00)
[2021-05-31] MEDS ORDERED: WARFARIN SODIUM 1 MG TAB PO SCH (17:00)
--- NOTE | 2021-06-02 15:13 | CON ---
Date of Consultation: 05/30/2021 Reason For Consultation: Admitted on 05/29/[address] Dumont's service for chest pain. I saw the pa dennis on 05/30/2021. History Of Present Illness: Ms. Saavedra is [address] Dan, has recently had a catheterization, was told she has a very small blood vessel that is unacceptable as far as an intervention. She has had a history of atrial fibrillation. She was in sinus rhythm after cardioversion. She failed beta blockers, failed sotalol. She has a history of mechanical aortic valve replacement for which she eliceo es Coumadin. She has a normal echocardiogram in February 2021 with a normally functioning prosthetic valve. Comes in with atypical chest pain. No nausea, vomiting, diaphoresis, PND, orthopnea, pedal edema, palpitation, or syncope. TN is ruled out. EKG is unremarkable. Chest x-ray is negative. BN P is 2038. INR 2.87, hemoglobin of 10. Past Medical History: Includes hypertension, dyslipidemia, gastroesophageal reflux, mechanical aorti c valve replacement and coronary artery disease as well as atrial fibrillation. Medications: Include aspirin, Lipitor, metoprolol, Neurontin, Protonix, and Coumadin. Allergies: MORPHINE AND FENTANYL. Review of Systems: Negative. Social History: Negative. Family History: Noncontributory. Physical Examination: Vital Signs: Stable. Afebrile. HEENT: Negative. Neck: Supple. No bruit. Chest: Clear to auscultation and percussion. Cardiac: Exam revealed a regular rhythm and rate. No murmurs, gallops, or rubs. Abdomen: Benign. Extremities: Revealed no clubbing, cyanosis, or edema. Diagnostic Data: Listed earlier. Impression And Plan: 1.Atypical chest pain, possibly related to coronary artery disease from previous catheterization and accessible with angioplasty and stent. She is on metoprolol. She is on Lipitor. She is on aspirin . I would increase the metoprolol on an as-needed basis. Continue other regimen, have her follow up with Dr. Dan in the near future. 2.Hypertension, well controlled. 3.Dyslipidemia, well controlled. 4.Gastroesophageal reflux, controlled. 5.History of aortic valve replacement, mechanical, on Coumadin. Adequate INR. Normal echo in 2020. 6.Lastly, she has atrial fibrillation, showed that she is in sinus rhythm, now on metoprolol, Coumad in, and aspirin. She has failed cardioversion in the past, on beta-blockers and sotalol, but she is in sinus rhythm now. Ms. Saavedra can go home whenever it is okay with Dr. Dumont. Follow up with Dr. Dan in the next week o r two. PANCHITO/DANE Voice ID: [id number] Report ID: [id number]
== END 2021-05-30 12:06 | disposition home or self-care (01) ==
LOC: ER 20:28 → ERHOLD 22:42 → 3RD-ICU 05-30 00:10
PROVIDERS: ADMIT Hospitalist; ATTEND Hospitalist
DX: R07.9 Chest pain, unspecified (principal); M25.512 Pain in left shoulder; I11.0 Hypertensive heart disease with heart failure; I50.32 Chronic diastolic (congestive) heart failure; I48.20 Chronic atrial fibrillation, unspecified; Z79.01 Long term (current) use of anticoagulants; Z95.2 Presence of prosthetic heart valve; G89.29 Other chronic pain; E78.5 Hyperlipidemia, unspecified; Z20.822 Contact with and (suspected) exposure to COVID-19
CPT/HCPCS: 93005; 85025 ×2; 80048; 36415; 83735 ×2; 84100; 85610 ×2; 80076; 84443; 81003; 84484 ×2; 80053; 83880; 71045; 96375; 96374; 99285; U0003; J1170 ×3; J2405; J3480; G0378 ×2

== ENCOUNTER 2021-09-28 23:36 | Observation (INO) | payer OTHER ==
--- OUTSIDE RECORDS SUMMARY | 2021-09-28 23:38 | XMS REPORT | Continuity of Care Document ---
:1955 Author Organization [facility] t Address [address] [place] [address] Care Team Providers Name Role Phone Dobson, E Primary Care Physician Dobson, E Attending Clinician Unavailable HIMA Attending Clinician Unavailable Pob, Lab Main Attending Clinician Unavailable Aletha LOVELL Attending Clinician ALETHA Attending Clinician Unavailable Doctor Unassigned, Name Attending Clinician Unavailable Payers Payer Name Policy Type Policy Number Effective Date Expiration Date S alfonso [facility] DUAL [id number] 2020 00:00:00 COMP HMO D SNP FORMERLY [facility] [id number] 2013 00:00:00 PLUS Problems Condition Condition Condition Status Onset Resolution Last Treating Co mments Source Name Details Category Date Date Treatment Clinician Date E44.0 E44.0 Disease Active 2020-04 Univers Moderate Moderate 1-19 ity of protein protein 00:00: [place] calorie calorie 00 Medical malnutriti malnutriti Br anch on on Other Other Disease Active 2020-04 Univers chest pain chest pain 1-19 it y of 00:00: [place] 00 Medical Branch Chest pain Chest pain Disease Active 2020-04 U nivers 1-17 ity of 00:00: [place] 00 Medical Branch Elevated Elevated Disease Active [...] ity of diastolic diastolic 00:00: Jose Elias manzo CHF CHF 00 Medical (congestiv (congestiv Br anch e heart e heart failure), failure), NYHA class NYHA class 3 3 Mixed Mixed Disease Active Univers hyperlipid hyperlipid 8-20 it y of emia emia 00:00: [place] 00 Medical Branch Essential Essential Disease Active Uni vers hypertensi hypertensi 8-20 it y of on on 00:00: [place] Medical Branch Anticoagul Anticoagul Disease Active U nivers ated ated 8-20 ity of 00:00: [place] Medical Branch Coronary Coronary Disease Active Unive rs artery artery 8-20 ity of disease disease 00:00: [place] involving involving 00 Medi [place] coronary coronary artery of artery of [place] 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 2-20 ity of disease disease 00:00: [place] involving involving 00 Medi [place] Branch heart heart without without angina angina pectoris, pectoris, unspecifie unspecifie d vessel d vessel or lesion or lesion type type Atrial Atrial Disease Active Univers flutter flutter 4-03 ity of 00:00: [place] 00 Medical Branch Aortic Aortic Disease Active 2015-04 Univers valve valve 0-28 ity of replaced replaced 00:00: [place] [Z95.2] [Z95.2] 00 Medical Branch Chest pain Chest pain Disease Active 2015-04 U nivers with high with high 0-22 ity of risk for risk for 00:00: [place] cardiac cardiac 00 Medical etiology etiology Branch Allergies, Adverse Reactions, Alerts Allergy Allergy Status Severity Reaction(s) Onset Inactive Treating Comm ents Source Name Type Date Date Clinician Morphine Propensi Active Shortness of 2006-0 Univers ty to Breath 1-15 ity of adverse 00:00: [place] reaction 00 Medical s to Branch drug MORPHINE DRUG Active High SOB 2006-0 Univers INGREDI 1-15 ity of 00:00: [place] 00 Medical Branch Social History Social Habit Start Date Stop Date Quantity Comments Source Exposure to 2021-08-18 2021-08-28 Not sure [facility] SARS-CoV-2 00:00:00 10:26:00 [facility] (event) Branch Alcohol intake 2021-08-28 2021-08-28 Current drinker Unive rsity of 00:00:00 00:00:00 of alcohol [facility] (finding) Branch Tobacco use and 2017-06-04 2017-06-04 Never used Universit y of exposure 00:00:00 00:00:00 [facility] Sex [birth year] Universit y of 00:00:00 00:00:00 [facility] Smoking Status Start Date Stop Date Source Never smoker [facility] Medications Ordered Filled Start Stop Current Ordering Indication Dosage Frequency Signature Comments Components Source Medication Medication Date Date Medication? Clinician (SIG) Name Name warfarin 2 Yes [id number] 2mg Take 1 U nivers mg tablet 6-09 tablet by ity o f 00:00: mouth [place] 00 every Medical evening. Branch warfarin 2 Yes [id number] 2mg Take 1 U nivers mg tablet 6-09 tablet by ity o f 00:00: mouth [place] 00 every Medical evening. Branch warfarin 2 Yes [id number] 2mg Take 1 U nivers mg tablet 6-09 tablet by ity o f 00:00: mouth [place] 00 every Medical evening. Branch warfarin 2 Yes [id number] 2mg Take 1 U nivers mg tablet 6-09 tablet by ity o f 00:00: mouth [place] 00 every Medical evening. Branch ezetimibe Yes 10mg Take 1 Univer s (ZETIA) 10 5-20 tablet by ity of mg tablet 00:00: mouth [place] 00 daily. Medical Branch ezetimibe Yes 10mg Take 1 Univer s (ZETIA) 10 5-20 tablet by ity of mg tablet 00:00: mouth [place] 00 daily. Medical Branch ezetimibe Yes 10mg Take 1 Univer s (ZETIA) 10 5-20 tablet by ity of mg tablet 00:00: mouth [place] 00 daily. Medical Branch ezetimibe 0 Yes 10mg Take 1 Univer s (ZETIA) 10 5-20 tablet by ity of mg tablet 00:00: mouth [place] 00 daily. Medical Branch ezetimibe 0 Yes 10mg Take 1 Univer s (ZETIA) 10 5-20 tablet by ity of mg tablet 00:00: mouth [place] 00 daily. Medical Branch warfarin 2 0 Yes [id number] 2mg Take 1 U nivers mg tablet 4-20 tablet by ity o f 00:00: mouth [place] 00 every Medical evening. Branch warfarin 2 0 Yes [id number] 2mg Take 1 U nivers mg tablet 4-20 tablet by ity o f 00:00: mouth [place] 00 every Medical evening. Branch warfarin 2 2021- No [id number] 2mg Take 1 Univers mg tablet 4-20 06-09 tablet by ity of 00:00: 00:00 mouth [place] 00 :00 every Medical evening. Branch furosemide 0 Yes [id number] 40mg Take 2 Univers 20 mg 2-16 02 tablets by ity of tablet 00:00: mouth [place] 00 daily. Medical Branch furosemide 0 Yes [id number] 40mg Take 2 Univers 20 mg 2-16 02 tablets by ity of tablet 00:00: mouth [place] 00 daily. Medical Branch furosemide 0 Yes [id number] 40mg Take 2 Univers 20 mg 2-16 02 tablets by ity of tablet 00:00: mouth [place] 00 daily. Medical Branch furosemide 2021-0 Yes [id number] 40mg Take 2 Univers 20 mg 2-16 02 tablets by ity of tablet 00:00: mouth [place] 00 daily. Medical Branch furosemide 2021-0 Yes [id number] 40mg Take 2 Univers 20 mg 2-16 02 tablets by ity of tablet 00:00: mouth [place] 00 daily. Medical Branch furosemide 2021-0 Yes [id number] 40mg Take 2 Univers 20 mg 2-16 02 tablets by ity of tablet 00:00: mouth [place] 00 daily. Medical Branch atorvastati 2021-0 Yes 80mg Take 1 Univ ers n 80 mg 1-20 tablet by ity of tablet 00:00: mouth at [place] 00 bedtime. Medical Branch atorvastati Yes 80mg Take 1 Univ ers n 80 mg 1-20 tablet by ity of tablet 00:00: mouth at [place] bedtime. Medical Branch atorvastati Yes 80mg Take 1 Univ ers n 80 mg 1-20 tablet by ity of tablet 00:00: mouth at [place] bedtime. Medical Branch atorvastati Yes 80mg Take 1 Univ ers n 80 mg 1-20 tablet by ity of tablet 00:00: mouth at [place] bedtime. Medical Branch atorvastati Yes 80mg Take 1 Univ ers n 80 mg 1-20 tablet by ity of tablet 00:00: mouth at [place] bedtime. Medical Branch atorvastati Yes 80mg Take 1 Univ ers n 80 mg 1-20 tablet by ity of tablet 00:00: mouth at [place] bedtime. Medical Branch metoprolol 2020-04 Yes [id number] 25mg Take 1 U nivers tartrate 25 2-15 tablet by ity of mg tablet 00:00: mouth (two) Medical times Branch daily. metoprolol 2020-04 Yes [id number] 25mg Take 1 U nivers tartrate 25 2-15 tablet by ity of mg tablet 00:00: mouth (two) Medical times Branch daily. metoprolol 2020-04 Yes [id number] 25mg Take 1 U nivers tartrate 25 2-15 tablet by ity of mg tablet 00:00: mouth (two) Medical times Branch daily. metoprolol 2020-04 Yes [id number] 25mg Take 1 U nivers tartrate 25 2-15 tablet by ity of mg tablet 00:00: mouth (two) Medical times Branch daily. metoprolol 2020-04 Yes [id number] 25mg Take 1 U nivers tartrate 25 2-15 tablet by ity of mg tablet 00:00: mouth (two) Medical times Branch daily. metoprolol 2020-04 Yes [id number] 25mg Take 1 U nivers tartrate 25 2-15 tablet by ity of mg tablet 00:00: mouth [place] (two) Medical times Branch daily. polyethylen 2020-04 Yes [id number] 17g Take 1 Univers e glycol 0-29 Packet by ity of 3350 17 00:00: mouth [place] gram powder 00 daily. Medica l Branch polyethylen 2020-04 Yes [id number] 17g Take 1 Univers e glycol 0-29 Packet by ity of 3350 17 00:00: mouth [place] gram powder 00 daily. Medica l Branch polyethylen 2020-04 Yes [id number] 17g Take 1 Univers e glycol 0-29 Packet by ity of 3350 17 00:00: mouth [place] gram powder 00 daily. Medica l Branch polyethylen 2020-04 Yes [id number] 17g Take 1 Univers e glycol 0-29 Packet by ity of 3350 17 00:00: mouth [place] gram powder 00 daily. Medica l Branch polyethylen 2020-04 Yes [id number] 17g Take 1 Univers e glycol 0-29 Packet by ity of 3350 17 00:00: mouth [place] gram powder 00 daily. Medica l Branch polyethylen 2020-04 Yes [id number] 17g Take 1 Univers e glycol 0-29 Packet by ity of 3350 17 00:00: mouth [place] gram powder 00 daily. Medica l Branch docusate 2020-04 Yes [id number] 100mg Take 1 U nivers 100 mg 0-28 capsule by ity of capsule 00:00: mouth 2 (two) Medical times Branch daily. docusate 2020-04 Yes [id number] 100mg Take 1 U nivers 100 mg 0-28 capsule by ity of capsule 00:00: mouth 2 (two) Medical times Branch daily. docusate 2020-04 Yes [id number] 100mg Take 1 U nivers 100 mg 0-28 capsule by ity of capsule 00:00: mouth 2 (two) Medical times Branch daily. docusate 2020-04 Yes [id number] 100mg Take 1 U nivers 100 mg 0-28 capsule by ity of capsule 00:00: mouth 2 (two) Medical times Branch daily. docusate 2020-04 Yes [id number] 100mg Take 1 U nivers 100 mg 0-28 capsule by ity of capsule 00:00: mouth 2 (two) Medical times Branch daily. docusate 2020-04 Yes [id number] 100mg Take 1 U nivers 100 mg 0-28 capsule by ity of capsule 00:00: mouth 2 [place] (two) Medical times Branch daily. warfarin 2 Yes Atrial 2mg Take 1 Uni vers mg tablet 4-08 flutter, tablet by i ty of 00:00: unspecified mouth 00 type every Medical evening. Branch Take 1 tablet by mouth 7 days a week. sotaloL 80 2019-04 Yes 80mg Take 1 Unive rs mg tablet 1-17 tablet by ity o f 00:00: mouth 2 [place] (two) Medical times Branch daily. atorvastati 2019-04 Yes Mixed 40mg Take 1 Uni vers n 40 mg 1-17 hyperlipide tablet by ity of tablet 00:00: darion mouth at [place] [address] bedtime. Medical Branch zolpidem 10 Yes Univer s mg tablet 4-21 ity of 00:00: [place] Medical Branch gabapentin 2016-0 Yes Take by Uni vers 300 mg 4-21 mouth ity of capsule 00:00: daily. [place] Medical Branch HYDROcodone 2017-0 Yes Univer s -acetaminop 4-21 ity of hen 10-325 00:00: [place] mg tablet 00 Medical Branch lidocaine 5 2016-0 Yes Univer s % (700 4-21 ity of mg/patch) 00:00: [place] patch Medical Branch gabapentin 2017-0 Yes Take by Uni vers 300 mg 4-21 mouth ity of capsule 00:00: daily. [place] Medical Branch lidocaine 5 2016-0 Yes Univer s % (700 4-21 ity of mg/patch) 00:00: [place] patch Medical Branch gabapentin 2017-0 Yes Take by Uni vers 300 mg 4-21 mouth ity of capsule 00:00: daily. [place] Medical Branch lidocaine 5 2017-0 Yes Univer s % (700 4-21 ity of mg/patch) 00:00: [place] patch Medical Branch gabapentin 2017-0 Yes Take by Uni vers 300 mg 4-21 mouth ity of capsule 00:00: daily. [place] Medical Branch lidocaine 5 2017-0 Yes Univer s % (700 4-21 ity of mg/patch) 00:00: [place] patch Medical Branch gabapentin 2017-0 Yes Take by Uni vers 300 mg 4-21 mouth ity of capsule 00:00: daily. [place] Medical Branch lidocaine 5 2017-0 Yes Univer s % (700 4-21 ity of mg/patch) 00:00: [place] patch 00 Medical Branch gabapentin 2016-0 Yes Take by Uni vers 300 mg 4-21 mouth ity of capsule 00:00: daily. [place] Medical Branch lidocaine 5 2016-0 Yes Univer s % (700 4-21 ity of mg/patch) 00:00: [place] patch 00 Medical Branch gabapentin 2016-0 Yes Take by Uni vers 300 mg 4-21 mouth ity of capsule 00:00: daily. Medical Branch lidocaine 5 2016-0 Yes Univer s % (700 4-21 ity of mg/patch) 00:00: [place] patch 00 Medical Branch pantoprazol 2016-0 Yes Univer s e 40 mg EC 4-14 ity of tablet 00:00: [place] 00 Medical Branch pantoprazol 2016-0 Yes Univer s e 40 mg EC 4-14 ity of tablet 00:00: [place] 00 Medical Branch pantoprazol 2016-0 Yes Univer s e 40 mg EC 4-14 ity of tablet 00:00: [place] 00 Medical Branch pantoprazol 2016-0 Yes Univer s e 40 mg EC 4-14 ity of tablet 00:00: [place] 00 Medical Branch pantoprazol 2017-0 Yes Univer s e 40 mg EC 4-14 ity of tablet 00:00: [place] 00 Medical Branch pantoprazol 2017-0 Yes Univer s e 40 mg EC 4-14 ity of tablet 00:00: [place] 00 Medical Branch pantoprazol 2017-0 Yes Univer s e 40 mg EC 4-14 ity of tablet 00:00: [place] 00 Medical Branch aspirin 81 2015-04 Yes [...] mouth [place] 00 daily. 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 Plan of Care Planned Activity Planned Date Details Comments Source Future Scheduled 2021-03-29 Depression screening Uni versity of [place] Test 00:00:00 (procedure) [code = Medical Branch 590894630] Future Scheduled 2020-12-14 INFLUENZA VACCINE Univer [facility] Test 00:00:00 (Season Ended) [code = Medic al Branch INFLUENZA VACCINE (Season Ended)] Future Scheduled 2020-10-29 Screening for [facility] [place] Test 00:00:00 malignant neoplasm of Medica l Branch breast (procedure) [code = 796290236] Future Scheduled 2018 Medicare Annual [facility] Test 00:00:00 Wellness Visit Medical [facility] h (procedure) [code = 339955136221262] Future Scheduled 2018 Screening for [facility] Test 00:00:00 osteoporosis Medical Branch (procedure) [code = 004401348] Future Scheduled 2018 [facility]00 65+ (1 of 1 - PPSV23) Medica l Branch [code = PNEUMOCOCCAL VACCINES 65+ (1 of 1 - PPSV23)] Future Scheduled 2017-02-05 [facility]00 blood in feces Medical [facility] h (procedure) [code = 217538862] Future Scheduled 2017-02-05 Screening for [facility] Test 00:00:00 malignant neoplasm of Medica l Branch colon (procedure) [code = 546431952] Future Scheduled 2003 Stool DNA-based [facility] Test 00:00:00 colorectal cancer Medical Br anch screening (procedure) [code = 888955218369852] Future Scheduled 2003 Flexible fiberoptic [facility] Test 00:00:00 sigmoidoscopy Medical Branch (procedure) [code = 90644745] Future Scheduled 2003 Screening for [facility] Test 00:00:00 malignant neoplasm of Medica l Branch colon (procedure) [code = 973028731] Future Scheduled 2003 Zoster Recombinant Unive [facility] Test 00:00:00 Vaccine (SHINGRIX) (1 Medica l Branch of 2) [code = Zoster Recombinant Vaccine (SHINGRIX) (1 of 2)] Future Scheduled 1972 DTaP,Tdap,and Td Univers [facility] Test 00:00:00 Vaccines (1 - Tdap) Medical Branch [code = DTaP,Tdap,and Td Vaccines (1 - Tdap)] Future Scheduled 1971 Hepatitis C [facility] 00:00:00 (procedure) [code = Medical Branch 685315849] Future Scheduled 1969 SARS-CoV-2 (COVID-19) [facility] 00:[facility]:00 Vaccine (1) [code = Medical Branch SARS-CoV-2 (COVID-19) Vaccine (1)] Encounters Start End Encounter Admission Attending Care Care Encounter Source Date/Time Date/Time Type Type Clinicians Facility Department ID 2021-09-21 Outpatient Dobson, STLMLC [facility] [id number] Common 10:27:03 Saurabh [id number] [facility] 2021-11-03 2021-11-03 Outpatient R HIMA [facility] [id number] Univers 11:00:00 11:00:00 [facility] [id number] ity [facility] 2021-11-03 2021-11-03 [facility] [id number] Univers 11:00[facility]00 [facility]-09[facility]27 2021-09-27 Nursing Information Systems Coordinator Andre Osei Lab Main [facility] [id number] Univers 10:15:00 10:30:00 Visit [place] [id number] [facility]y [facility] [place] [phone] [place] dical NAL 353 [facility] 2021-09-27 2021-09-27 Outpatient R [facility] [id number] -[id number] Univers 10:15:00 10:15:00 [id number] ity [facility] 2021-09-27 2021-09-27 Outpatient R ALETHA [facility] [id number] Univers 10:15:00 10:15:00 [place] perez o f [facility] 2021-09-27 2021-09-27 Telephone [facility] [id number] Univers 00:00:00 00:00:00 [place] BLACKMAN [id number] ity of [place] 4.2.7.2.686 [place] PROF[place] [phone] [place] dical NAL 059 [facility] 2021-09-27 2021-09-27 Telephone [facility] [id number] Univers 00:00:00 00:00:00 Qiangjun [place] [id number] ity of [place] 4.2.7.2.686 [place] [phone] [place] [id number] [facility] 2021-09-21 2021-09-21 Refill [facility] [id number] Univers 00:00:00 00:00:00 Qiamerjun [place] 350.1.13.10 ity of [place] 4.2.7.2.686 [place] [phone] [address] 2021-09-01 2021-09-01 Telephone [facility] [id number] Univers 00:00:00 00:00:00 [place] [id number] ity [facility] 4.2.7.[place] [phone] [address] 2021-08-30 2021-08-30 [facility] [id number] Univers 00:00:00 00:00:00 [place] 350.1.13.10 ity of [facility] 4.2.7.2.[place] [phone] [address] 2020-08-08 2020-08-08 Nursing Information Systems Coordinator Andre Osei [facility] 1.2.840.114 [id number] 11:14:44 11:29:44 Visit Lab Main [place] 350.1.13.10 [place] 4.2.7.2.686 Professio [phone] [address] 2020-08-08 2020-08-08 Orders Doctor JOHANN 1.2.840.114 [id number] 00:00:00 00:00:00 Only Unassigned, MIKE 350.1.13.10 [place] [facility] 4.2.7.2.686 [id number] 009 2020-08-08 2020-08-08 Telephone [facility] [id number] 00:00:00 00:00:00 Qiamerjun [place] 350.1.13.10 [place] 4.2.7.2.686 Professio [phone] [facility]9 [facility] 2020-07-25 2020-07-25 Telephone Aletha, [facility] [id number] 00:00:00 00:00:00 Catrinamerzaheer [place] 350.1.13.10 [place] 4.2.7.2.686 Professio [phone] [address] 2020-07-20 2020-07-20 Nursing Information Systems Coordinator Fanraz, [facility] 1.2.840.114 [id number] 10:37:03 10:52:03 Visit Lab Main [place] 350.1.13.10 [place] 4.2.7.2.686 Professio [phone] [address] 2020-07-20 2020-07-20 Orders Doctor JOHANN 1.2.840.114 [id number] 00:00:00 00:00:00 Only Unassigned, MIKE 350.1.13.10 [place] [facility] 4.2.7.2.[id number] [facility] 2020-07-20 2020-07-20 Telephone [facility], [facility] [id number] 00:00:00 00:00:00 Rogerzaheer [place] 350.1.13.10 [place] 4.2.7.2.686 Professio [phone] [address] 2020-07-13 2020-07-13 Nursing Information Systems Coordinator Farnaz, [facility] 1.2.840.114 [id number] 09:23:20 09:38:20 Visit Lab Main [place] 350.1.13.10 [place] 4.2.7.2.686 Professio [phone] [address] 2020-07-13 2020-07-13 Telephone Aletha, [facility] [id number] 00:00:00 00:00:00 [place] 350.1.13.10 [place] 4.2.7.2.686 Professio [phone] [address] 2020-06-19 2020-06-19 Telephone Aletha, [facility] [id number] 00:00:00 00:00:00 [place] 350.1.13.10 [place] 4.2.7.2.686 Professio [phone] [address] 2020-06-17 2020-06-17 Nursing Information Systems Coordinator Farnaz, [facility] 1.2.840.114 [id number] 09:22:55 09:37:55 Visit Lab Main [place] 350.1.13.10 [place] 4.2.7.2.686 Professio [phone] [address] 2020-06-08 2020-06-08 Telephone Aletha [facility] 1.2.197.793 [id number] 00:00:00 00:00:00 [place] 350.1.13.10 [place] 4.2.7.2.686 Professio [phone] [address] 2020-06-07 2020-06-07 Nursing Information Systems Coordinator Farnaz, [facility] 1.2.840.114 [id number] 08:57:47 09:12:47 Visit Lab Main [place] 350.1.13.10 [place] 4.2.7.2.686 Professio [phone] [address] 2020-05-16 2020-05-16 Nursing Information Systems Coordinator Farnaz, [facility] 1.2.840.114 [id number] 11:09:17 11:24:17 Visit Lab Main [place] 350.1.13.10 [place] 4.2.7.2.686 Professio [phone] [address] 2020-05-16 2020-05-16 Telephone [facility] 1.2.684.140 [id number] 00:00:00 00:00:00 [place] 350.1.13.10 [place] 4.2.7.2.686 Professio [phone] [address] 2020-05-16 2020-05-16 Orders Doctor WILLS 1.2.840.114 [id number] 00:00:00 00:00:00 Only Unassigned, MIKE 350.1.13.10 [place] [facility] 4.2.7.2.686 [id number] [id number] 2020-05-11 2020-05-11 Nursing Information Systems Coordinator aFrnaz, [facility] [place] 1.2.840.114 [id number] 09:25:07 09:40:07 Visit Lab Main [place] 350.1.13.10 [place] 4.2.7.2.686 Professio [phone] [address] 2020-05-11 2020-05-11 Telephone [facility], [facility] [id number] 00:00:00 00:00:00 Qiangzaheer [place] 350.1.13.10 [place] 4.2.7.2.686 Professio [phone] [address] 2020-05-11 2020-05-11 Telephone [facility], [facility] [id number] 00:00:00 00:00:00 Qiafallon [place] 350.1.13.10 [place] 4.2.7.2.686 Professio [phone] [address] 2020-05-04 2020-05-04 Telephone [facility], [facility] [id number] 00:00:00 00:00:00 [place] 350.1.13.10 [place] 4.2.7.2.686 Professio [phone] [address] 2020-05-03 2020-05-03 Nursing Information Systems Coordinator Farnaz, [facility] 1.2.840.114 [id number] 10:05:00 10:20:00 Visit Lab Main [place] 350.1.13.10 [place] 4.2.7.2.686 Professio [phone] [address] 2020-05-03 2020-05-03 Orders Doctor JOHANN 1.2.840.114 [id number] 00:00:00 00:00:00 Only Unassigned, MIKE 350.1.13.10 [place] [facility] 4.2.7.2.[id number] [facility] 2020-04-27 2020-04-27 Nursing Information Systems Coordinator Farnaz, [facility] 1.2.840.114 [id number] 08:24:03 08:39:03 Visit Lab Main [place] 350.1.13.10 [place] 4.2.7.2.686 Professio [phone] [facility] 353 [facility] 2020-04-27 2020-04-27 Telephone [facility] [id number] 00:00:00 00:00:00 [place] 350.1.13.10 [place] 4.2.7.2.686 Professio [phone] [facility] 059 [facility] 2020-04-20 2020-04-20 Refill [facility] 1.2.840.114 [id number] 00:00:00 00:00:00 [place] 350.1.13.10 [place] 4.2.7.2.686 Professio [phone] [facility]9 [facility] 2020-03-29 2020-03-29 Office [facility] 1.2.840.114 [id number] 14:32:40 15:25:41 Visit [place] 350.1.13.10 [place] 4.2.7.2.686 Professio [phone] [address] Results This patient has no known results.
[2021-09-29] MEDS ORDERED: ONDANSETRON 4 MG/2 ML VIAL ONE (01:01)
[2021-09-29 01:24] LABS: Urine Blood 2+ (Negative); Urine Glucose Negative (Negative); Urine Protein Negative (Negative)
[2021-09-29] MEDS ORDERED: HYDROMORPHONE HCL 0.5 MG/0.5 ML INJ ONE ×2 (01:27→03:08)
--- NOTE | 2021-09-29 01:30 | ER ---
Nurse's Notes [facility] Name: Michelle Saavedra Age: 66 yrs Sex: Female : 1955 Arrival Date: 09/28/2021 Time: 23:49 Bed 18 Private MD: Diagnosis: Chest pain, unspecified-HX of AVR;prison (current) use of anticoagulants Presentation: 09/29 00:33 Chief complaint: Patient states: "My chest and stomach has been hurting since vc1 yesterday, but my main concern is the chest pain.". Coronavirus screen: Vaccine status: Patient reports being unvaccinated. At this time, the client does not indicate any symptoms associated with coronavirus-19. Ebola Screen: No symptoms or risks identified at this time. Initial Sepsis Screen: Does the patient meet any 2 criteria? No. Patient's initial sepsis screen is negative. Does the patient have a suspected source of infection? No. Patient's initial sepsis screen is negative. Risk Assessment: Do you want to hurt yourself or someone else? Patient reports no desire to harm self or others. Onset of symptoms was September 27, 2021. 00:33 Method Of Arrival: Ambulatory vc1 00:33 Acuity: JAKUB 3 vc1 Triage Assessment: 00:36 General: Appears in no apparent distress. Behavior is calm, cooperative, appropriate vc1 for age. Pain: Complains of pain in chest and abdomen Pain does not radiate. Pain currently is 5 out of 10 on a pain scale. Neuro: Level of Consciousness is awake, alert, obeys commands, Oriented to person, place, time, situation, Appropriate for age. Cardiovascular: Reports chest pain. Respiratory: Airway is patent Respiratory effort is even, unlabored, Respiratory pattern is regular, symmetrical. GI: Reports lower abdominal pain, upper abdominal pain. : No deficits noted. Derm: No deficits noted. Musculoskeletal: No deficits noted. Historical: - Allergies: 00:36 Fentanyl; itching; vc1 00:36 Morphine; vc1 - Home Meds: 00:36 aspirin 81 mg Oral tab 1 tab once daily [Active]; atorvastatin 20 mg Oral tab 1 tab vc1 once daily [Active]; gabapentin Oral [Active]; Coumadin 2.5 mg Oral tab 1 tab once daily [Active]; [place] 7.5-325 mg Oral tab 1 tab every 4 hours [Active]; pantoprazole Oral [Active]; sotalol 80 mg Oral tab 2 times per day [Active]; - PMHx: 00:36 Atrial Fib; Back pain; GERD; Hyperlipidemia; Hypertension; mechanical heart valve; vc1 - PSHx: 00:36 Aortic valve replacement; vc1 - Immunization history:: Adult Immunizations up to date, Client reports having NOT received the Covid vaccine. Pneumococcal vaccine is up to date, Flu vaccine is up to date. - Social history:: Smoking status: Patient denies any tobacco usage or history of. - Family history:: not pertinent. Screenin:38 Abuse screen: Denies threats or abuse. Nutritional screening: No deficits noted. vc1 Tuberculosis screening: No symptoms or risk factors identified. Fall Risk None identified. Assessment: 00:38 Pain: Pain began gradually, 1 day ago. vc1 01:30 Reassessment: Patient and/or family updated on plan of care and expected duration. Pain vc1 level reassessed. Patient is alert, oriented x 3, equal unlabored respirations, skin warm/dry/pink. Patient states symptoms have not improved. 02:30 Reassessment: Patient and/or family updated on plan of care and expected duration. Pain vc1 level reassessed. Patient is alert, oriented x 3, equal unlabored respirations, skin warm/dry/pink. Patient states feeling better. Vital Signs: 00:33 BP 147 / 67; Pulse 59; Resp 15; Temp 98.3; Pulse Ox 100% ; Weight 46.72 kg; Height 5 vc1 ft. 3 in. (160.02 cm); Pain 5/10; 00:33 Body Mass Index 18.25 (46.72 kg, 160.02 cm) vc1 ED Course: 0616 23:49 Patient arrived in ED. ag3 17 00:16 Gab Del Real MD is Attending Physician. milton 00:36 Triage completed. vc1 00:37 Arm band placed on right wrist. vc1 00:38 XRAY Chest (1 view) In Process Unspecified. EDMS 00:38 Patient has correct armband on for positive identification. Bed in low position. Call vc1 light in reach. Client placed on continuous cardiac and pulse oximetry monitoring. NIBP monitoring applied. 00:38 Patient maintains SpO2 saturation greater than 95% on room air. vc1 00:58 Alena Camilo, PHILLIP is Primary Nurse. vc1 01:00 Inserted saline lock: 20 gauge in right forearm, using aseptic technique. Blood vc1 collected. 01:28 Torres Arvizu is Hospitalizing Provider. [facility] 03:31 No provider procedures requiring assistance completed. Patient admitted, IV remains in vc1 place. Administered Medications: 00:50 Drug: Zofran (Ondansetron) 4 mg Route: IVP; Site: right forearm; vc1 02:00 Follow up: Response: No adverse reaction; Nausea is decreased vc1 00:59 Not Given (Allergyy): morphine 2 mg IVP or IV at per protocol once; (PAIN>8) RASS on vc1 ADMN: Combtv4, Very Agttd3, Agttd2, Rstlss1, AlertClm0, Drwsy-1, LtSdtn-2, ModSdtn-3, DpSdtn-4, UnArsble-5 x2 01:25 Drug: Dilaudid (HYDROmorphone) 0.5 mg Route: IVP; Site: right forearm; vc1 02:00 Follow up: Response: No adverse reaction; Pain is decreased; RASS: Alert and Calm (0) vc1 02:30 Drug: NS 0.9% 1000 ml Route: IV; Rate: 75 ml/hr; Site: right forearm; vc1 03:30 Follow up: IV Status: Infusion continued upon admission vc1 03:13 Drug: Dilaudid (HYDROmorphone) 0.5 mg Route: IVP; Site: right forearm; vc1 03:30 Follow up: Response: No adverse reaction; Pain is decreased; RASS: Alert and Calm (0) vc1 Medication: 03:32 VIS not applicable for this client. vc1 Outcome: 01:30 Decision to Hospitalize by Provider. milton 03:32 Admitted to Med/surg accompanied by tech, via wheelchair, room 205, Report called to [facility] 03:32 Condition: good 03:32 Instructed on the need for admit. 03:32 Patient left the ED. vc1 Signatures: Dispatcher [employer] EDGab Coffey MD MD cha Gomez, Alice 3 Alena Camilo, PHILLIP RN vc1
--- NOTE | 2021-09-29 01:30 | EDPHYS ---
Physician Documentation [facility] Name: Michelle Saavedra Age: 66 yrs Sex: Female : 1955 Arrival Date: 09/28/2021 Time: 23:49 Bed 18 Private MD: ED Physician Gab Del Real HPI: 09/29 00:23 This 66 yrs old Female presents to ER via Unassigned with complaints of Chest milton Pain. 00:23 The patient or guardian reports chest pain that is located primarily in the substernal milton area, anterior chest wall, bilaterally. Onset: last night. The pain does not radiate. Associated signs and symptoms: The patient has no apparent associated signs or symptoms. The chest pain is described as a heaviness, a pressure. Duration: The patient or guardian reports a single episode, that is still ongoing. Modifying factors: The symptoms are alleviated by nothing. the symptoms are aggravated by nothing. Severity of pain: At its worst the pain was mild moderate in the emergency department the pain is unchanged. The patient has experienced similar episodes in the past, a few times. Historical: - Allergies: 00:36 Fentanyl; itching; vc1 00:36 Morphine; vc1 - Home Meds: 00:36 aspirin 81 mg Oral tab 1 tab once daily [Active]; atorvastatin 20 mg Oral tab 1 tab vc1 once daily [Active]; gabapentin Oral [Active]; Coumadin 2.5 mg Oral tab 1 tab once daily [Active]; [place] 7.5-325 mg Oral tab 1 tab every 4 hours [Active]; pantoprazole Oral [Active]; sotalol 80 mg Oral tab 2 times per day [Active]; - PMHx: 00:36 Atrial Fib; Back pain; GERD; Hyperlipidemia; Hypertension; mechanical heart valve; vc1 - PSHx: 00:36 Aortic valve replacement; vc1 - Immunization history:: Adult Immunizations up to date, Client reports having NOT received the Covid vaccine. Pneumococcal vaccine is up to date, Flu vaccine is up to date. - Social history:: Smoking status: Patient denies any tobacco usage or history of. - Family history:: not pertinent. ROS: 00:23 Constitutional: Negative for fever, chills, and weight loss, Eyes: Negative for injury, milton pain, redness, and discharge, ENT: Negative for injury, pain, and discharge, Neck: Negative for injury, pain, and swelling, Respiratory: Negative for shortness of breath, cough, wheezing, and pleuritic chest pain, Abdomen/GI: Negative for abdominal pain, nausea, vomiting, diarrhea, and constipation, Back: Negative for injury and pain, : Negative for injury, bleeding, discharge, and swelling, MS/Extremity: Negative for injury and deformity, Skin: Negative for injury, rash, and discoloration, Neuro: Negative for headache, weakness, numbness, tingling, and seizure, Psych: Negative for depression, anxiety, suicide ideation, homicidal ideation, and hallucinations, Allergy/Immunology: Negative for hives, rash, and allergies, Endocrine: Negative for neck swelling, polydipsia, polyuria, polyphagia, and marked weight changes. 00:23 Cardiovascular: Positive for chest pain, palpitations. Exam: 00:23 Constitutional: This is a well developed, well nourished patient who is awake, alert, milton and in no acute distress. Head/Face: Normocephalic, atraumatic. Eyes: Pupils equal round and reactive to light, extra-ocular motions intact. Lids and lashes normal. Conjunctiva and sclera are non-icteric and not injected. Cornea within normal limits. Periorbital areas with no swelling, redness, or edema. ENT: Nares patent. No nasal discharge, no septal abnormalities noted. Tympanic membranes are normal and external auditory canals are clear. Oropharynx with no redness, swelling, or masses, exudates, or evidence of obstruction, uvula midline. Mucous membranes moist. Neck: Trachea midline, no thyromegaly or masses palpated, and no cervical lymphadenopathy. Supple, full range of motion without nuchal rigidity, or vertebral point tenderness. No Meningismus. Chest/axilla: Normal chest wall appearance and motion. Nontender with no deformity. No lesions are appreciated. Cardiovascular: Regular rate and rhythm with a normal S1 and S2. No gallops, murmurs, or rubs. Normal PMI, no JVD. No pulse deficits. Respiratory: Lungs have equal breath sounds bilaterally, clear to auscultation and percussion. No rales, rhonchi or wheezes noted. No increased work of breathing, no retractions or nasal flaring. Abdomen/GI: Soft, non-tender, with normal bowel sounds. No distension or tympany. No guarding or rebound. No evidence of tenderness throughout. Back: No spinal tenderness. No costovertebral tenderness. Full range of motion. Female : Normal external genitalia. Skin: Warm, dry with normal turgor. Normal color with no rashes, no lesions, and no evidence of cellulitis. MS/ Extremity: Pulses equal, no cyanosis. Neurovascular intact. Full, normal range of motion. Neuro: Awake and alert, GCS 15, oriented to person, place, time, and situation. Cranial nerves II-XII grossly intact. Motor strength 5/5 in all extremities. Sensory grossly intact. Cerebellar exam normal. Normal gait. Psych: Awake, alert, with orientation to person, place and time. Behavior, mood, and affect are within normal limits. 01:15 ECG was reviewed by the Attending Physician. milton Vital Signs: 00:33 BP 147 / 67; Pulse 59; Resp 15; Temp 98.3; Pulse Ox 100% ; Weight 46.72 kg; Height 5 vc1 ft. 3 in. (160.02 cm); Pain 5/10; 00:33 Body Mass Index 18.25 (46.72 kg, 160.02 cm) vc1 MDM: 00:16 Patient medically screened. milton 00:25 Differential diagnosis: abnormal EKG, acute myocardial infarction, acute pericarditis, milton coronary artery disease chest wall pain, congestive heart failure cholecystitis, costochondritis, hiatal hernia, pancreatitis, pericarditis, pleurisy, pneumonia, pulmonary embolus, stable angina, unstable angina. HEART Score: History: Slightly Suspicious (0), ECG: Normal (0), Age: > or = 65 years (2), Risk Factors: > or = 3 Risk factors for atherosclerotic disease (2), [Hypercholesterolemia] [Hypertension] [DM] [+ Family HX]. The patient was not given aspirin in the Emergency Department. The patient's deep vein thrombosis risk score was calculated as follows: Total Score: 0. This patient was found to be at low risk for a deep vein thrombosis by using the Well's assessment criteria. The patient's pulmonary embolism risk score was calculated as follows: Total Score: 0-2 points. This patient was found to be at low risk for a pulmonary embolism by using the Well's assessment criteria. ADELE Risk Score: 1 - patient's age is greater or equal to 65 years, 1 - Three or more CAD risk factors, 1- Known CAD, TOTAL SCORE = 3. Data reviewed: vital signs, nurses notes, lab test result(s), EKG, radiologic studies, plain films. Data interpreted: preventive medicine specialist: rate is 85 beats/min, rhythm is regular, Pulse oximetry: on room air is 99 %. Test interpretation: by ED physician or midlevel provider: ECG, plain radiologic studies. Counseling: I had a detailed discussion with the patient and/or guardian regarding: the historical points, exam findings, and any diagnostic results supporting the discharge/admit diagnosis, lab results, radiology results, the need for further work-up and treatment in the hospital. 09/29 00:22 Order name: Basic Metabolic Panel; Complete Time: 02:36 [facility] 09/29 00:22 Order name: CBC with Diff; Complete Time: 01:47 [facility] 09/29 00:22 Order name: LFT's; Complete Time: 02:36 [facility] 09/29 00:22 Order name: Magnesium; Complete Time: 02:36 [facility] 09/29 00:22 Order name: NT PRO-BNP; Complete Time: 02:36 [facility] 09/29 00:22 Order name: PT-INR; Complete Time: 01:47 [facility] 09/29 00:22 Order name: Troponin HS; Complete Time: 02:36 [facility] 09/29 00:22 Order name: XRAY Chest (1 view) [facility] 09/29 00:22 Order name: Urinalysis [facility] 09/29 00:22 Order name: SARS-COV-2 RT PCR (Document "Date of Onset" if Symptomatic); Complete Time: [facility] :36 09/29 01:24 Order name: Urine Dipstick-Ancillary; Complete Time: 01:27 [facility] 09/29 01:28 Order name: Lipase; Complete Time: 02:10 [facility] 09/29 00:22 Order name: EKG; Complete Time: 00:22 [facility] 09/29 00:22 Order name: Cardiac monitoring; Complete Time: 01:26 [facility] 09/29 00:22 Order name: EKG - Nurse/Tech; Complete Time: 01:25 [facility] 09/29 00:22 Order name: IV Saline Lock; Complete Time: :25 [facility] 09/29 00:22 Order name: Labs collected and sent; Complete Time: [facility] 06/17 00:22 Order name: O2 Per Protocol; Complete Time: milton 09/29 00:22 Order name: O2 Sat Monitoring; Complete Time: [facility] EC:15 Rate is 56 beats/min. Rhythm is regular. QRS [place] is Normal. NC interval is normal. QRS milton interval is normal. QT interval is normal. No Q waves. T waves are Normal. No ST changes noted. Clinical impression: Sinus bradycardia and No evidence of ischemia. Interpreted by me. Reviewed by me. Administered Medications: 00:50 Drug: Zofran (Ondansetron) 4 mg Route: IVP; Site: right forearm; vc1 02:00 Follow up: Response: No adverse reaction; Nausea is decreased vc1 00:59 Not Given (Allergyy): morphine 2 mg IVP or IV at per protocol once; (PAIN>8) RASS on vc1 ADMN: Combtv4, Very Agttd3, Agttd2, Rstlss1, AlertClm0, Drwsy-1, LtSdtn-2, ModSdtn-3, DpSdtn-4, UnArsble-5 x2 01:25 Drug: Dilaudid (HYDROmorphone) 0.5 mg Route: IVP; Site: right forearm; vc1 02:00 Follow up: Response: No adverse reaction; Pain is decreased; RASS: Alert and Calm (0) vc1 02:30 Drug: NS 0.9% 1000 ml Route: IV; Rate: 75 ml/hr; Site: right forearm; vc1 03:30 Follow up: IV Status: Infusion continued upon admission vc1 03:13 Drug: Dilaudid (HYDROmorphone) 0.5 mg Route: IVP; Site: right forearm; vc1 03:30 Follow up: Response: No adverse reaction; Pain is decreased; RASS: Alert and Calm (0) vc1 Disposition Summary: 09/29/21 01:30 Hospitalization Ordered Hospitalization Status: Observation milton Provider: Torres Arvizu cha Location: Telemetry/MedSurg (observation) milton Condition: Fair milton Problem: new milton Symptoms: have improved milton Bed/Room Type: Standard milton Room Assignment: 205(09/29/21 02:37) mw Diagnosis - Chest pain, unspecified - HX of AVR milton - [place] (current) use of anticoagulants milton Forms: - Medication Reconciliation Form milton - SBAR form milton Signatures: Dispatcher [employer] EDAlbertina Roberto RN RN mw Anderson, Corey, MD MD cha Calcote, Vanessa, RN RN vc1 Lucila Shields PA PA sb3 Corrections: (The following items were deleted from the chart) 02:37 01:30 [place]
[2021-09-29 01:38] LABS: Hematocrit 30.2 % (36.0-45.0); Lymphocytes % 11.3 % (15.3-44.8); MPV 8.3 fL (7.6-11.3); Protime INR 2.68; RBC Red Blood Cell Count 3.25 M/uL (3.86-4.86)
[2021-09-29 02:12] LABS: Albumin 3.4 g/dL (3.4-5.0); Bilirubin Direct 0.1 mg/dL (0-0.2); Bilirubin Total 0.4 mg/dL (0.2-1.0); Potassium 3.5 mmol/L (3.5-5.1); Protein, Total 6.8 g/dL (6.4-8.2); Troponin High Sensitivity 24.3 pg/mL (<58.9)
[2021-09-29] MEDS ORDERED: LOPERAMIDE HCL 2 MG CAPSULE PO PRN (02:32)
--- NOTE | 2021-09-29 02:32 | P.HP ---
Certification for Inpatient Patient admitted to: Observation With expected LOS: <2 Midnights Patient will require the following post-hospital care: None Practitioner: I am a practitioner with admitting privileges, knowledge of patient current condition, hospital course, and medical plan of care. Services: Services provided to patient in accordance with Admission requirements found in Title 42 Section 412.3 of the Code of Federal Regulations Patient History Date of Service: 09/29/21 Primary Care Provider: Olya Reason for admission: Chest Pain History of Present Illness: Patient is a 66-year-old female with history of mechanical aortic valve on Warfarin, atrial fibrillation, chronic diastolic heart failure, hypertension, h yperlipidemia, GERD and chronic pain who presented to the emergency department with complaints of chest pain x 24 hours. She also states she has been experiencing back pain, fatigue, headache, and diarrhea. She reports that on Saturday, she had her INR checked at her PCP office and it was 6. She was instructed to stop taking her warfarin until her INR was to be rechecked on Saturday. INR in ED is 2.68, troponin negative, BNP 900, AST/ALT elevated. EKG with nonspecific ST changes. CXR negative. ED provider wishes to admit patient for observation. Allergies morphine Allergy (Intermediate, Verified 05/30/21 00:39) panic ATTACK; shaking fentanyl Allergy (Verified 05/30/21 00:39) Itching Home Medications: Atorvastatin Calcium [Lipitor*] 80 mg PO DAILY 01/25/21 Gabapentin 300 mg PO BID 01/25/21 Pantoprazole [Protonix Tab*] 40 mg PO BID 01/25/21 Metoprolol Tartrate [Lopressor*] 12.5 mg PO BID 6AM 6PM #60 tab 01/29/21 Aspirin [Aspirin EC 81 MG] 1 tab PO DAILY 05/30/21 Warfarin Sodium [Coumadin*] 1 mg PO SEECOM 05/30/21 Warfarin Sodium [Coumadin*] 2 mg PO SEECOM 05/30/21 - Past Medical/Surgical History Diabetic: No -: Atrial fibrillation on warfarin -: depression -: HTN -: Chronic diastolic congestive heart failure -: GERD -: mechanical aortic valve -: aortic valve replacement -: cardioversion -: tubal ligation Psychosocial/ Personal History: Patient lives at home with her children - Family History Brother -: Heart disease, Cancer Notes: heart attack Mother -: Heart disease, Diabetes Notes: of heart attack Father -: Heart disease Notes: of heart attack Sister -: Heart disease, Diabetes, Cancer Notes: sisters x2 - DM. sister x1 - heart attack. sister- lung cancer - Social History Smoking Status: Never smoker Alcohol use: No CD- Drugs: No Caffeine use: No Place of Residence: Home Review of Systems Cardiovascular: Chest Pain Gastrointestinal: Abdominal Pain, Diarrhea Musculoskeletal: Shoulder Pain Physical Examination - Physical Exam General: Alert, In no apparent distress HEENT: Atraumatic, PERRLA, EOMI, Sclerae nonicteric Neck: Supple, 2+ carotid pulse no bruit, No LAD, Without JVD or thyroid abnormality Respiratory: Clear to auscultation bilaterally, Normal air movement Cardiovascular: No edema, Regular rate/rhythm, Normal S1 S2 Gastrointestinal: Normal bowel sounds, No tenderness Musculoskeletal: No tenderness Integumentary: No rashes Neurological: Normal speech, Normal strength at 5/5 x4 extr, Normal tone, Normal affect - Studies Laboratory Data (last 24 hrs) 09/29/21 01:09: Lipase 176 09/29/21 01:09: PT 30.1 H, INR 2.68 09/29/21 01:09: WBC 8.9, Hgb 10.1 L, Hct 30.2 L, Plt Count 213 09/29/21 01:09: Sodium 141, Potassium 3.5, BUN 13, Creatinine 0.97, Glucose 113 H, Magnesium 2.0, Total Bilirubin 0.4, AST 153 H, ALT 142 H, Alkaline Ph osphatase 76 Assessment and Plan - Problems (Diagnosis) (1) Chest pain Current Visit: Yes Status: Acute Qualifiers: Chest pain type: unspecified Qualified Code(s): R07.9 - Chest pain, unspecified (2) On warfarin therapy Current Visit: Yes Status: Chronic (3) Elevated liver enzymes Current Visit: Yes Status: Acute (4) Chronic diastolic heart failure Current Visit: Yes Status: Chronic (5) Chronic atrial fibrillation Current Visit: No Status: Chronic (6) HTN (hypertension) Current Visit: No Status: Chronic Qualifiers: Hypertension type: primary hypertension Qualified Code(s): I10 - Essential (primary) hypertension (7) Mechanical heart valve present Current Visit: Yes Status: Chronic - Plan -Cardiology consult. Per chart review, patient was supposed to have a stress test but patient refusing. -INR currently therapeutic but has been off warfarin for about 48 hours. Home dose ordered for AM. INR daily. -Initial troponin negative, will trend. Monitor on telemetry. -Cause of elevated liver enzymes unknown. Patient reported mild abdominal pain and diarrhea. Recheck in morning & consider further workup. -Lipid panel and TSH ordered for morning. -Continue daily aspirin and atorvastatin. -Reconcile and continue home medications -Warfarin for VTE ppx -Full code Discharge Plan: Home Plan to discharge in: 24 Hours - Advance Directives Does patient have a Living Will: No Does patient have a Durable POA for Healthcare: No - Code Status/Comfort Care Code Status Assessed: Yes (Full) Critical Care: No Time Spent Managing Pts Care (In Minutes): 50
[2021-09-29] MEDS ORDERED: NA CHLORIDE 0.9% 1,000 ML ONE (02:40)
[2021-09-29] MEDS ORDERED: ONDANSETRON 4 MG/2 ML VIAL IV PRN (03:14)
[2021-09-29] MEDS ORDERED: ACETAMINOPHEN 500 MG TAB PO PRN (03:14)
[2021-09-29 03:49] VITALS: O2SAT 100
[2021-09-29 04:35] VITALS: BMI 18.2
[2021-09-29 07:29] LABS: Hematocrit 32.4 % (36.0-45.0); MPV 8.2 fL (7.6-11.3); RBC Red Blood Cell Count 3.46 M/uL (3.86-4.86)
[2021-09-29] MEDS: HYDROMORPHONE HCL 0.5 MG/0.5 ML INJ IV PRN ×2 (07:30→11:32)
[2021-09-29 07:36] LABS: Protime INR 2.27
[2021-09-29 07:54] LABS: Albumin 3.5 g/dL (3.4-5.0); Bilirubin Total 0.6 mg/dL (0.2-1.0); Potassium 3.6 mmol/L (3.5-5.1); Protein, Total 7.1 g/dL (6.4-8.2); Thyroid Stimulating Hormone 2.17 uIU/mL (0.360-3.740); Troponin High Sensitivity 19.2 pg/mL (<58.9)
--- NOTE | 2021-09-29 10:02 | P.DS ---
Admission Date: 09/29/21 Discharge Date: 09/29/21 Primary Care Provider: Olya Disposition: ROUTINE DISCHARGE Discharge Condition: FAIR Reason for Admission: Chest Pain - Problems (1) Chest pain Current Visit: Yes Status: Acute Qualifiers: Chest pain type: unspecified Qualified Code(s): R07.9 - Chest pain, unspecified (2) Chronic diastolic heart failure Current Visit: Yes Status: Chronic (3) Mechanical heart valve present Current Visit: Yes Status: Chronic (4) Chronic atrial fibrillation Current Visit: No Status: Chronic Brief History of Present Illness: Patient is a 66-year-old female with history of mechanical aortic valve on Warfarin, atrial fibrillation, chronic diastolic heart failure, hypertension, hyperlipidemia, GERD and chronic pain who presented to the emergency department with complaints of chest pain x 24 hours. She also stated she had been experiencing back pain, fatigue, headache, and diarrhea. She reported that, she had her INR checked 2 days prior at her PCP office and it was 6. She was instructed to stop taking her warfarin until her INR was to be rechecked on Saturday. INR in ED is 2.68, troponin negative, BNP 900, AST/ALT elevated. EKG with nonspecific ST changes. CXR negative. Patient placed under observation for ACS rule out. Hospital Course: Troponin trended negative. Patient was asymptomatic during the hospital stay. Repeat INR was 2.2. Patient seen by Dr. Carter will suspect her chest pain is related to her atrial fibrillation or GI. She has a history of GERD on Protonix. Patient deemed stable for discharge by cardiology. Vital Signs/Physical Exam: Temp Pulse Resp BP Pulse Ox 97.5 F 50 16 122/56 L 100 09/29/21 08:00 09/29/21 08:00 09/29/21 08:00 09/29/21 08:00 09/29/21 08:00 General: Alert, In no apparent distress, Oriented x3 HEENT: Mucous membr. moist/pink Neck: JVD not distended Respiratory: Clear to auscultation bilaterally, Normal air movement Cardiovascular: No edema, Normal S1 S2, Irregular heart rate/rhythm Gastrointestinal: Normal bowel sounds, Soft and benign, Non-distended, No tenderness Musculoskeletal: No swelling Integumentary: No rashes Neurological: Normal strength at 5/5 x4 extr Laboratory Data at Discharge: WBC 9.1 K/uL (4.3-10.9) 09/29/21 07:12 Hgb 10.8 g/dL (12.0-15.0) L 09/29/21 07:12 Hct 32.4 % (36.0-45.0) L 09/29/21 07:12 Plt Count 238 K/uL (152-406) 09/29/21 07:12 PT 25.4 SECONDS (9.5-12.5) H 09/29/21 07:12 INR 2.27 09/29/21 07:12 Sodium 141 mmol/L (136-145) 09/29/21 07:12 Potassium 3.6 mmol/L (3.5-5.1) 09/29/21 07:12 BUN 14 mg/dL (7-18) 09/29/21 07:12 Creatinine 0.88 mg/dL (0.55-1.3) 09/29/21 07:12 Glucose 100 mg/dL (74-106) 09/29/21 07:12 Magnesium 2.0 mg/dL (1.8-2.4) 09/29/21 01:09 Total Bilirubin 0.6 mg/dL (0.2-1.0) 09/29/21 07:12 AST 147 U/L (15-37) H 09/29/21 07:12 ALT 140 U/L (12-78) H 09/29/21 07:12 Alkaline Phosphatase 81 U/L (45-117) 09/29/21 07:12 Triglycerides 93 mg/dL (<150) 09/29/21 07:12 Cholesterol 184 mg/dL (<200) 09/29/21 07:12 HDL Cholesterol 83 mg/dL (40-60) H 09/29/21 07:12 Cholesterol/HDL Ratio 2.22 09/29/21 07:12 Lipase 176 U/L (73-393) 09/29/21 01:09 Home Medications: Atorvastatin Calcium [Lipitor*] 80 mg PO DAILY 01/25/21 Gabapentin 300 mg PO BID 01/25/21 Pantoprazole [Protonix Tab*] 40 mg PO BID 01/25/21 Metoprolol Tartrate [Lopressor*] 12.5 mg PO BID 6AM 6PM #60 tab 01/29/21 Hydrocodone Bit/Acetaminophen [[place] 7.5-325 Tablet] 1 tab PO TID PRN 09/29/21 Warfarin Sodium [Coumadin*] 2 mg PO DAILY #30 tab 09/29/21 Zolpidem Tartrate [Ambien] 1 tab PO BEDTIME 09/29/21 New Medications: Warfarin Sodium [Coumadin*] 2 mg PO DAILY #30 tab Diet: AHA Activity: Ad fransisco Followup: Saurabh Dobson MD [Primary Care Provider] - 1-2 Weeks
--- NOTE | 2021-09-29 12:03 | RAD REPORT ---
EXAM DESCRIPTION: RAD - Chest Single View - 09/29/2021 12:37 am CLINICAL HISTORY: The patient is 66 years old and is Female; CHEST PAIN TECHNIQUE: Frontal view of the chest. COMPARISON: No relevant prior studies available. FINDINGS: Lungs: Unremarkable. No consolidation. Pleural space: Unremarkable. No pneumothorax. Heart: Unremarkable. Mediastinum: Unremarkable. Bones/joints: Median sternotomy wires. IMPRESSION: No acute findings in the chest. Electronically signed by: Terry Street MD 09/29/2021 12:55 AM CDT Due to temporary technical issues with the PACS/Fluency reporting system, reports are being signed by the in house radiologist without review as a courtesy to ensure prompt reporting. The interpreting r adiologist is fully responsible for the content of the report.
[2021-09-29 12:36] VITALS: BP 114/53; TEMP 97.7
--- NOTE | 2021-09-29 16:18 | CON ---
Date of Consultation: 09/29/[address] Arvizu on 09/29/2021. I saw the patient on 09/29/2021. Reason For Consultation: Chest pain. History Of Present Illness: Ms. Saavedra is a 66-year-old, has a history of coronary artery disease th at apparently is inoperable according to her by Dr. Dan. She has a history of mechanical aortic valv e that she has had for more than 20 years. Has paroxysmal atrial fibrillation, hypertension, dyslipi demia, and gastroesophageal reflux disease. Came in with chest pain. Although she points mostly to her midepigastric region, she is tender to touch on her skin. Denies PND, orthopnea, pedal edema, pa lpitations, or syncope. She has mildly elevated liver function tests. BNP of 923, negative troponin , negative EKG, negative chest x-ray and negative BNP. She wants to go home. Past Medical History: As stated above. Allergies: NONE. Review of Systems: Negative. Social History: Negative. Family History: Noncontributory. Physical Examination: General: She is pleasant, no acute distress. Vital Signs: Stable. Afebrile. HEENT: Negative. Neck: Supple without any bruit, lymphadenopathy, JVD, or thyromegaly. Chest: Clear to auscultation and percussion. Cardiac: Revealed a loud aortic valve replacement sound and a click without any murmurs, gallops, or rubs. Abdomen: Benign. Extremities: Revealed no clubbing, cyanosis, or edema. Diagnostic Data: Listed earlier. The INR is 2.68, which is appropriate. Impression And Plan: 1.Atypical chest pain, most likely gastric. I think she can go home. No cardiac workup recommended now. Follow up with Dr. Dan soon. 2.Paroxysmal atrial fibrillation, on Coumadin and metoprolol. Her INR is adequate. Apparently ther e was some consideration for ablation down the road. I recommend that she increase her metoprolol on as-needed basis. 3.Mechanical aortic valve replacement over 20 years old, sounds well, seated without any regurgitati on. Needs echo followup according to Dr. Dan. 4.Her other problems including hypertension, dyslipidemia, gastroesophageal reflux disease, and willie nary artery disease are stable. I am not so sure what her coronary status is. She said that she has had a catheterization. She was told she did not need any intervention. I do not believe her sympto ms are coronary at this point. She can go home whenever it is okay with Dr. Arvizu. PANCHITO/DANE Voice ID: [id number] Report ID: [id number]
[2021-09-29] MEDS ORDERED: WARFARIN SODIUM 2.5 MG TAB PO SCH (17:00)
--- NOTE | 2021-09-30 08:56 | EKG ---
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
== END 2021-09-29 12:58 | disposition home or self-care (01) ==
LOC: ER 23:36 → ERHOLD 09-29 02:23 → 2ND 09-29 03:06
PROVIDERS: ADMIT Internal Medicine; ATTEND Internal Medicine
DX: R07.89 Other chest pain (principal); I48.0 Paroxysmal atrial fibrillation; I25.10 Atherosclerotic heart disease of native coronary artery without angina pectoris; I11.0 Hypertensive heart disease with heart failure; I50.32 Chronic diastolic (congestive) heart failure; E78.5 Hyperlipidemia, unspecified; K21.9 Gastro-esophageal reflux disease without esophagitis; R74.8 Abnormal levels of other serum enzymes; G89.29 Other chronic pain; R19.7 Diarrhea, unspecified; R10.9 Unspecified abdominal pain; M25.519 Pain in unspecified shoulder; R51.9 Headache, unspecified; M54.9 Dorsalgia, unspecified; F32.A Depression, unspecified; Z53.29 Procedure and treatment not carried out because of patient's decision for other reasons; Z95.2 Presence of prosthetic heart valve; Z79.01 Long term (current) use of anticoagulants; Z79.82 Long term (current) use of aspirin; Z79.899 Other long term (current) drug therapy; Z88.5 Allergy status to narcotic agent; Z20.822 Contact with and (suspected) exposure to COVID-19; Z82.49 Family history of ischemic heart disease and other diseases of the circulatory system; Z83.3 Family history of diabetes mellitus; Z80.1 Family history of malignant neoplasm of trachea, bronchus and lung
CPT/HCPCS: 96361; 93005; 85025; 80048; 36415; 83735; 85610 ×2; 80061; 80076; 84443; 81003; 85027; 84484 ×2; 83690; 80053; 83880; 71045; 96375; 96374; 99285; U0003; J1170 ×4; J7030; J2405; G0378 ×2

== ENCOUNTER 2021-10-09 00:10 | Observation (INO) | payer OTHER ==
--- OUTSIDE RECORDS SUMMARY | 2021-10-09 00:15 | XMS REPORT | Continuity of Care Document ---
:1955 Author Organization [facility] t Address [address] [place] [address] Care Team Providers Name Role Phone Dobson, E Primary Care Physician Dobson, E Attending Clinician Unavailable HIMA Attending Clinician Unavailable Pob, Lab Main Attending Clinician Unavailable Aletha LOVELL Attending Clinician ALETHA Attending Clinician Unavailable Doctor Unassigned, Name Attending Clinician Unavailable Payers Payer Name Policy Type Policy Number Effective Date Expiration Date S alfonso [facility] DUAL [id number] 2020 00:00:00 COMP HMO D SNP [facility] [id number] 2013 00:00:00 PLUS Problems Condition Condition Condition Status Onset Resolution Last Treating Co mments Source Name Details Category Date Date Treatment Clinician Date E44.0 E44.0 Disease Active 2020-04 Univers Moderate Moderate 1-19 ity of protein protein 00:00: [place] calorie calorie 00 Medical malnutriti malnutriti Br anch on on Other Other Disease Active 2020-04 Univers chest pain chest pain 1-19 it y of 00:00: [place] 00 Medical Branch Chest pain Chest pain Disease Active 2020-04 U nivers 1-17 ity of 00:00: [place] 00 Medical Branch Elevated Elevated Disease Active [...] 8-20 it y of emia emia 00:00: [place] 00 Medical Branch Essential Essential Disease Active Uni vers hypertensi hypertensi 8-20 it y of on on 00:00: [place] [facility] Anticoagul Anticoagul Disease Active U nivers ated ated 8-20 ity of 00:00: [place] [facility] Coronary Coronary Disease Active Unive rs artery artery 8-20 ity of disease disease 00:00: [place] involving involving 00 [place] coronary coronary artery of artery of [place] 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 2-20 ity of disease disease 00:00: [place] involving involving 00 Medi [place] Branch heart heart without without angina angina pectoris, pectoris, unspecifie unspecifie d vessel d vessel or lesion or lesion type type Atrial Atrial Disease Active Univers flutter flutter 4-03 ity of 00:00: [place] 00 Medical Branch Aortic Aortic Disease Active 2015-04 Univers valve valve 0-28 ity of replaced replaced 00:00: [place] [Z95.2] [Z95.2] 00 Medical Branch Chest pain [...] Source Exposure to 2021-08-18 2021-08-28 Not sure [facility] SARS-CoV-2 00:00:00 10:26:00 [facility] (event) Branch Alcohol intake 2021-08-28 2021-08-28 Current drinker Unive rsity of 00:00:00 00:00:00 of alcohol [facility] (finding) Branch Tobacco use and 2017-06-04 2017-06-04 Never used Universit y of exposure 00:00:00 00:00:00 [facility] Sex Ass[birth year] Universit y of 00:00:00 00:00:00 [facility] Smoking Status Start Date Stop Date Source Never smoker [facility] Medications Ordered Filled Start Stop Current Ordering Indication Dosage Frequency Signature Comments Components Source Medication Medication Date Date Medication? Clinician (SIG) Name Name warfarin 2 Yes [id number] 2mg Take 1 U nivers mg tablet 6-09 tablet by ity o f 00:00: mouth [place] 00 every Medical evening. Branch warfarin 2 Yes [id number] 2mg Take 1 U nivers mg tablet 6-09 tablet by ity o f 00:00: mouth [place] 00 every Medical evening. Branch warfarin 2 Yes [id number] 2mg Take 1 U nivers mg tablet 6-09 tablet by ity o f 00:00: mouth [place] 00 every Medical evening. Branch warfarin 2 Yes [id number] 2mg Take 1 U nivers mg tablet [...] daily. Medical Branch warfarin 2 0 Yes [id number] 2mg Take 1 U nivers mg tablet 4-20 tablet by ity o f 00:00: mouth [place] 00 every Medical evening. Branch warfarin 2 0 Yes [id number] 2mg Take 1 U nivers mg tablet 4-20 tablet by ity o f 00:00: mouth [place] 00 every Medical evening. Branch warfarin 2 2021- No [id number] 2mg Take 1 Univers mg tablet 4-20 06-09 tablet by ity of 00:00: 00:00 mouth [place] 00 :00 every Medical evening. Branch furosemide 0 Yes [id number] 40mg Take 2 Univers 20 mg 2-16 02 tablets by ity of tablet 00:00: mouth [place] 00 daily. Medical Branch furosemide 0 Yes [id number] 40mg Take 2 Univers 20 mg 2-16 02 tablets by ity of tablet 00:00: mouth [place] 00 daily. Medical Branch furosemide 0 Yes [id number] 40mg Take 2 Univers 20 mg 2-16 02 tablets by ity of tablet 00:00: mouth [place] 00 daily. Medical Branch furosemide 2021-0 Yes [id number] 40mg Take 2 Univers 20 mg 2-16 02 tablets by ity of tablet 00:00: mouth [place] 00 daily. Medical Branch furosemide 2021-0 Yes [id number] 40mg Take 2 Univers 20 mg 2-16 02 tablets by ity of tablet 00:00: mouth [place] 00 daily. Medical Branch furosemide 2021-0 Yes [id number] 40mg Take 2 Univers 20 mg 2-16 [...] by ity of tablet 00:00: mouth at [place] bedtime. Medical Branch atorvastati Yes 80mg Take 1 Univ ers n 80 mg 1-20 tablet by ity of tablet 00:00: mouth at [place] bedtime. Medical Branch atorvastati Yes 80mg Take 1 Univ ers n 80 mg 1-20 tablet by ity of tablet 00:00: mouth at [place] bedtime. Medical Branch atorvastati Yes 80mg Take 1 Univ ers n 80 mg 1-20 tablet by ity of tablet 00:00: mouth at [place] bedtime. Medical Branch atorvastati Yes 80mg Take 1 Univ ers n 80 mg 1-20 tablet by ity of tablet 00:00: mouth at [place] bedtime. Medical Branch metoprolol 2020-04 Yes [id number] 25mg Take 1 U nivers tartrate 25 2-15 tablet by ity of mg tablet 00:00: mouth (two) Medical times Branch daily. metoprolol 2020-04 Yes [id number] 25mg Take 1 U nivers tartrate 25 2-15 tablet by ity of mg tablet 00:00: mouth (two) Medical times Branch daily. metoprolol 2020-04 Yes [id number] 25mg Take 1 U nivers tartrate 25 2-15 tablet by ity of mg tablet 00:00: mouth (two) Medical times Branch daily. metoprolol 2020-04 Yes [id number] 25mg Take 1 U nivers tartrate 25 2-15 tablet by ity of mg tablet 00:00: mouth (two) Medical times Branch daily. metoprolol 2020-04 Yes [id number] 25mg Take 1 U nivers tartrate 25 2-15 tablet by ity of mg tablet 00:00: mouth (two) Medical times Branch daily. metoprolol 2020-04 Yes [id number] 25mg Take 1 U nivers tartrate 25 2-15 tablet by ity of mg tablet 00:00: mouth [place] (two) Medical times Branch daily. polyethylen 2020-04 Yes [id number] 17g Take 1 Univers e glycol 0-29 Packet by ity of 3350 17 00:00: mouth [place] gram powder 00 daily. Medica l Branch polyethylen 2020-04 Yes [id number] 17g Take 1 Univers e glycol 0-29 Packet by ity of 3350 17 00:00: mouth [place] gram powder 00 daily. Medica l Branch polyethylen 2020-04 Yes [id number] 17g Take 1 Univers e glycol 0-29 Packet by ity of 3350 17 00:00: mouth [place] gram powder 00 daily. Medica l Branch polyethylen 2020-04 Yes [id number] 17g Take 1 Univers e glycol 0-29 Packet by ity of 3350 17 00:00: mouth [place] gram powder 00 daily. Medica l Branch polyethylen 2020-04 Yes [id number] 17g Take 1 Univers e glycol 0-29 Packet by ity of 3350 17 00:00: mouth [place] gram powder 00 daily. Medica l Branch polyethylen 2020-04 Yes [id number] 17g Take 1 Univers e glycol 0-29 Packet by ity of 3350 17 00:00: mouth [place] gram powder 00 daily. Medica l Branch docusate 2020-04 Yes [id number] 100mg Take 1 U nivers 100 mg 0-28 capsule by ity of capsule 00:00: mouth 2 (two) Medical times Branch daily. docusate 2020-04 Yes [id number] 100mg Take 1 U nivers 100 mg 0-28 capsule by ity of capsule 00:00: mouth 2 (two) Medical times Branch daily. docusate 2020-04 Yes [id number] 100mg Take 1 U nivers 100 mg 0-28 capsule by ity of capsule 00:00: mouth 2 (two) Medical times Branch daily. docusate 2020-04 Yes [id number] 100mg Take 1 U nivers 100 mg 0-28 capsule by ity of capsule 00:00: mouth 2 (two) Medical times Branch daily. docusate 2020-04 Yes [id number] 100mg Take 1 U nivers 100 mg 0-28 capsule by ity of capsule 00:00: mouth 2 (two) Medical times Branch daily. docusate 2020-04 Yes [id number] 100mg Take 1 U nivers 100 mg 0-28 capsule by ity of capsule 00:00: mouth 2 [place] (two) Medical times Branch daily. warfarin 2 Yes Atrial 2mg Take 1 Uni vers mg tablet 4-08 flutter, tablet by i ty of 00:00: unspecified mouth 00 type every Medical evening. Branch Take 1 tablet by mouth 7 days a week. sotaloL 80 2019-04 Yes 80mg Take 1 Unive rs mg tablet 1-17 tablet by ity o f 00:00: mouth 2 [place] (two) Medical times Branch daily. atorvastati 2019-04 Yes Mixed 40mg Take 1 Uni vers n 40 mg 1-17 hyperlipide tablet by ity of tablet 00:00: darion mouth at [place] [address] bedtime. Medical Branch zolpidem 10 Yes Univer s mg tablet 4-21 ity of 00:00: [place] [facility] gabapentin 2016-0 Yes Take by Uni vers 300 mg 4-21 mouth ity of capsule 00:00: daily. [place] [facility] HYDROcodone 2017-0 Yes Univer s -acetaminop 4-21 ity of hen 10-325 00:00: [place] mg tablet 00 Medical Branch lidocaine 5 2016-0 Yes Univer s % (700 4-21 ity of mg/patch) 00:00: [place] patch Medical Branch gabapentin 2017-0 Yes Take by Uni vers 300 mg 4-21 mouth ity of capsule 00:00: daily. [place] [facility] lidocaine 5 2016-0 Yes Univer s % (700 4-21 ity of mg/patch) 00:00: [place] patch Medical Branch gabapentin 2017-0 Yes Take by Uni vers 300 mg 4-21 mouth ity of capsule 00:00: daily. [place] [facility] lidocaine 5 2017-0 Yes Univer s % (700 4-21 ity of mg/patch) 00:00: [place] patch Medical Branch gabapentin 2017-0 Yes Take by Uni vers 300 mg 4-21 mouth ity of capsule 00:00: daily. [place] [facility] lidocaine 5 2017-0 Yes Univer s % (700 4-21 ity of mg/patch) 00:00: [place] patch Medical Branch gabapentin 2017-0 Yes Take by Uni vers 300 mg 4-21 mouth ity of capsule 00:00: daily. [place] [facility] lidocaine 5 2017-0 Yes Univer s % (700 4-21 ity of mg/patch) 00:00: [place] patch 00 Medical Branch gabapentin 2016-0 Yes Take by Uni vers 300 mg 4-21 mouth ity of capsule 00:00: daily. [place] [facility] lidocaine 5 2016-0 Yes Univer [...] mg EC 4-14 ity of tablet 00:00: [place] 00 Medical Branch pantoprazol 2016-0 Yes Univer s e 40 mg EC 4-14 ity of tablet 00:00: [place] 00 Medical Branch pantoprazol 2016-0 Yes Univer s e 40 mg EC 4-14 ity of tablet 00:00: [place] 00 Medical Branch pantoprazol 2016-0 Yes Univer s e 40 mg EC 4-14 ity of tablet 00:00: [place] 00 Medical Branch pantoprazol 2017-0 Yes Univer s e 40 mg EC 4-14 ity of tablet 00:00: [place] 00 Medical Branch pantoprazol 2017-0 Yes Univer s e 40 mg EC 4-14 ity of tablet 00:00: [place] 00 Medical Branch pantoprazol 2017-0 Yes Univer s e 40 mg EC 4-14 ity of tablet 00:00: [place] 00 Medical Branch aspirin 81 2015-04 Yes [...] Immunizations Ordered Filled Immunization Date Status Comments [facility] e Immunization Name Name Influenza Virus [...] Test 00:00:00 (procedure) [code = Medical Branch 507322539] Future Scheduled 2020-12-14 INFLUENZA VACCINE Univer [facility] [place] [facility] Test 00:00:00 (Season Ended) [code = Medic al Branch INFLUENZA VACCINE (Season Ended)] Future Scheduled 2020-10-29 Screening for [facility] [place] Test 00:00:00 malignant neoplasm of Medica l Branch breast (procedure) [code = 224489053] Future Scheduled 2018 Medicare Annual [facility] Test 00:00:00 Wellness Visit Medical [facility] h (procedure) [code = 564052340338521] Future Scheduled 2018 Screening for [facility] Test 00:00:00 osteoporosis Medical Branch (procedure) [code = 815665176] Future Scheduled 2018 PNEUMOCOCCAL VACCINES [facility] Test 00:00:00 65+ (1 of 1 - PPSV23) Medica l Branch [code = PNEUMOCOCCAL VACCINES 65+ (1 of 1 - PPSV23)] Future Scheduled 2017-02-05 Screening for occult [facility] Test 00:00:00 blood in feces Medical [facility] h (procedure) [code = 910810734] Future Scheduled 2017-02-05 Screening for [facility] Test 00:00:00 malignant neoplasm of Medica l Branch colon (procedure) [code = 804034355] Future Scheduled 2003 Stool DNA-based [facility] Test 00:00:00 colorectal cancer Medical Br anch screening (procedure) [code = 977922502225854] Future Scheduled 2003 Flexible fiberoptic [facility] Test 00:00:00 sigmoidoscopy Medical Branch (procedure) [code = 85337128] Future Scheduled 2003 Screening for [facility] Test 00:00:00 malignant neoplasm of Medica l Branch colon (procedure) [code = 502496150] Future Scheduled 2003 Zoster Recombinant Unive [facility] Test 00:00:00 Vaccine (SHINGRIX) (1 Medica l Branch of 2) [code = Zoster Recombinant Vaccine (SHINGRIX) (1 of 2)] Future Scheduled 1972 DTaP,Tdap,and Td Univers [facility] Test 00:00:00 Vaccines (1 - Tdap) Medical Branch [code = DTaP,Tdap,and Td Vaccines (1 - Tdap)] Future Scheduled 1971 Hepatitis C screening [facility] Test 00:00:00 (procedure) [code = Medical Branch 159693698] Future Scheduled 1969 SARS-CoV-2 (COVID-19) [facility] Test 00:00:00 Vaccine (1) [code = Medical Branch SARS-CoV-2 (COVID-19) Vaccine (1)] Encounters Start End Encounter Admission Attending Care Care Encounter Source Date/Time Date/Time Type Type Clinicians Facility Department ID 2021-09-21 Outpatient Dobson, STLMLC [facility] [id number] Common 10:27:03 Saurabh [address] [facility] 2021-11-03 2021-11-03 Outpatient R HIMA [facility] [id number] Univers 11:00:00 11:00:00 [facility] [id number] ity [facility] 2021-11-03 2021-11-03 [id number] Univers 11:00[facility]00 [facility] 2021-09-27 2021-09-27 Horticultural Agent Andre Osei Lab Main [facility] [id number] Univers 10:15:00 10:30:00 Visit [place] [id number] ity [facility] 4[place] [phone] Pa dical NAL 353 [facility] 2021-09-27 2021-09-27 Outpatient R [facility] [id number] Univers 10:15:00 10:15:[id number] [facility] 2021-09-27 2021-09-27 Outpatient R ALETHA [facility] [id number] Univers 10:15:00 10:15:00 [place] perez o f [facility] 2021-09-27 2021-09-27 Telephone [facility] [id number] Univers 00:00:00 00:00:00 [place] BLACK[place] [id number] ity of [place] 4[place]7.2.[place] [phone] Pa dical NAL 059 [facility] 2021-09-27 2021-09-27 Telephone [facility] [id number] Univers 00:00:00 00:00:00 Qiangjun [place] [id number] ity of [place] 4[place]2.7.2.686 [phone] [place] [address] [facility] 2021-09-21 2021-09-21 Refill [facility] 1.2.840.114 [id number] Univers 00:00:00 00:00:00 Qiamerjun [place] [id number] ity [place] 4[place] [phone] [address] 2021-09-01 2021-09-01 Telephone [facility] [id number] Univers 00:00:00 00:00:00 [place] [id number] ity of [facility] 4.2.[place] [phone] [address] 2021-08-30 2021-08-30 [facility] [id number] Univers 00:00:00 00:00:00 [place] [id number] ity of [facility] 4.2.7.2.[place] [phone] [address] 2020-08-08 2020-08-08 Horticultural Agent Andre Osei [facility] 1.2.840.114 [id number] 11:14:44 11:29:44 Visit Lab Main [place] 350.1.13.10 [place] 4.2.7.2.686 Professio [phone] [address] 2020-08-08 2020-08-08 Orders Doctor JOHANN 1.2.840.114 [id number] 00:00:00 00:00:00 Only Unassigned, MIKE 350.1.13.10 [place] [facility] 4.2.7.2.686 [id number] 009 2020-08-08 2020-08-08 Telephone [facility] [id number] 00:00:00 00:00:00 Qiamerjun [place] 350.1.13.10 [place] 4.2.7.2.686 Professio [phone] [facility] 2020-07-25 2020-07-25 Telephone Aletha, [facility] [id number] 00:00:00 00:00:00 Catrinamerzaheer [place] 350.1.13.10 [place] 4.2.7.2.686 Professio [phone] [address] 2020-07-20 2020-07-20 Horticultural Agent Farnaz, [facility] 1.2.840.114 [id number] 10:37:03 10:52:03 Visit Lab Main [place] 350.1.13.10 [place] 4.2.7.2.686 Professio [phone] [address] 2020-07-20 2020-07-20 Orders Doctor JOHANN 1.2.840.114 [id number] 00:00:00 00:00:00 Only Unassigned, MIKE 350.1.13.10 [place] [facility] 4.2.7.2.686 [phone] [facility] 2020-07-20 2020-07-20 Telephone [facility], [facility] [id number] 00:00:00 00:00:00 Rogerzaheer [place] 350.1.13.10 [place] 4.2.7.2.686 Professio [phone] [address] 2020-07-13 2020-07-13 Horticultural Agent Farnaz, [facility] 1.2.840.114 [id number] 09:23:20 09:38:20 Visit Lab Main [place] 350.1.13.10 [place] 4.2.7.2.686 Professio [phone] [address] 2020-07-13 2020-07-13 Telephone Aletha, [facility] [id number] [id number] 00:00:00 00:00:00 [place] 350.1.13.10 [place] 4.2.7.2.686 Professio [phone] [address] 2020-06-19 2020-06-19 Telephone Aletha, [facility] [id number] 00:00:00 00:00:00 Catrinamerzaheer [place] 350.1.13.10 [place] 4.2.7.2.686 Professio [phone] [address] 2020-06-17 2020-06-17 Horticultural Agent Farnaz, [facility] 1.2.840.114 [id number] 09:22:55 09:37:55 Visit Lab Main [place] 350.1.13.10 [place] 4.2.7.2.686 Professio [phone] [address] 2020-06-08 2020-06-08 [facility] [id number] [id number] 00:00:00 00:00:00 Catrinamerzaheer [place] 350.1.13.10 [place] 4.2.7.2.686 Professio [phone] [address] 2020-06-07 2020-06-07 Horticultural Agent Farnaz, [facility] 1.2.840.114 [id number] 08:57:47 09:12:47 Visit Lab Main [place] 350.1.13.10 [place] 4.2.7.2.686 Professio [phone] [address] 2020-05-16 2020-05-16 Horticultural Agent Farnaz, [facility] 1.2.840.114 [id number] 11:09:17 11:24:17 Visit Lab Main [place] 350.1.13.10 [place] 4.2.7.2.686 Professio [phone] [address] 2020-05-16 2020-05-16 Orders Doctor JOHANN 1.2.840.114 [id number] 00:00:00 00:00:00 Only Unassigned, MIKE 350.1.13.10 [place] [facility] 4.2.7.2.686 [id number] [facility] 2020-05-16 2020-05-16 Telephone [facility] [id number] [id number] 00:00:00 00:00:00 Catrinamerzaheer [place] 350.1.13.10 [place] 4.2.7.2.686 Professio [phone] [address] 2020-05-11 2020-05-11 Horticultural Agent Farnaz, [facility] 1.2.840.114 [id number] 09:25:07 09:40:07 Visit Lab Main [place] 350.1.13.10 [place] 4.2.7.2.686 Professio [phone] [address] 2020-05-11 2020-05-11 Telephone [facility], [facility] [id number] 00:00:00 00:00:00 Qiangzaheer [place] 350.1.13.10 [place] 4.2.7.2.686 Professio [phone] [address] 2020-05-11 2020-05-11 Telephone [facility], [facility] [id number] 00:00:00 00:00:00 Qiafallon [place] 350.1.13.10 [place] 4.2.7.2.686 Professio [phone] [address] 2020-05-04 2020-05-04 Telephone [facility], [facility] [id number] [id number] 00:00:00 00:00:00 [place] 350.1.13.10 [place] 4.2.7.2.686 Professio [phone] [address] 2020-05-03 2020-05-03 Horticultural Agent Farnaz, [facility] 1.2.840.114 [id number] 10:05:00 10:20:00 Visit Lab Main [place] 350.1.13.10 [place] 4.2.7.2.686 Professio [phone] [address] 2020-05-03 2020-05-03 Orders Doctor JOHANN 1.2.840.114 [id number] 00:00:00 00:00:00 Only Unassigned, MIKE 350.1.13.10 [place] [facility] 4.2.7.2.686 [id number] [facility] 2020-04-27 2020-04-27 Horticultural Agent Farnaz, [facility] 1.2.840.114 [id number] 08:24:03 08:39:03 Visit Lab Main [place] 350.1.13.10 [place] 4.2.7.2.686 Professio [phone] [facility] 2020-04-27 2020-04-27 Telephone [facility] [id number] 00:00:00 00:00:00 [place] 350.1.13.10 [place] 4.2.7.2.686 Professio [phone] [facility]59 [facility] 2020-04-20 2020-04-20 Refill [facility] 1.2.840.114 [id number] 00:00:00 00:00:00 [place] Black[place] 350.1.13.10 [place] 4.2.7.2.686 Professio [phone] [facility] 2020-03-29 2020-03-29 Office [facility] 1.2.840.114 [id number] 14:32:40 15:25:41 Visit [place] Blackman 350.1.13.10 [place] 4.2.7.2.686 Professio [phone] [address] Results This patient has no known results.
[2021-10-09 04:49] LABS: Absolute Lymphocytes (CBC) 1.4 K/uL (0.7-4.9); Hematocrit 35.4 % (36.0-45.0); Lymphocytes % 23.5 % (15.3-44.8); MPV 7.9 fL (7.6-11.3); RBC Red Blood Cell Count 3.85 M/uL (3.86-4.86)
[2021-10-09] MEDS ORDERED: METOPROLOL TARTRATE 5 MG/5 ML INJ IV ONE (04:56)
[2021-10-09 05:12] LABS: Potassium 3.2 mmol/L (3.5-5.1)
[2021-10-09] MEDS ORDERED: HYDROMORPHONE HCL 1 MG/ML INJ ONE (05:38)
[2021-10-09 06:08] LABS: Magnesium 1.7 mg/dL (1.8-2.4)
--- NOTE | 2021-10-09 06:52 | ER ---
Nurse's Notes [facility] Name: Michelle Saavedra Age: 66 yrs Sex: Female : 1955 Arrival Date: 10/09/2021 Time: 00:11 Bed 19 Private MD: Diagnosis: Chest pain, unspecified;Unspecified atrial fibrillation Presentation: 10/09 01:25 Chief complaint: Patient states: "My chest is beating really fast, I feel like I can vc1 barely breath.". Coronavirus screen: Vaccine status: Patient reports being unvaccinated. At this time, the client does not indicate any symptoms associated with coronavirus-19. Ebola Screen: No symptoms or risks identified at this time. Initial Sepsis Screen: Does the patient meet any 2 criteria? No. Patient's initial sepsis screen is negative. Does the patient have a suspected source of infection? No. Patient's initial sepsis screen is negative. Risk Assessment: Do you want to hurt yourself or someone else? Patient reports no desire to harm self or others. Onset of symptoms is unknown. 01:25 Method Of Arrival: Ambulatory vc1 01:25 Acuity: JAKUB 3 vc1 Triage Assessment: 01:38 General: Appears in no apparent distress. uncomfortable, Behavior is calm, cooperative, vc1 appropriate for age. Pain: Complains of pain in chest. Neuro: Level of Consciousness is awake, alert, obeys commands, Oriented to person, place, time, situation, Appropriate for age. Cardiovascular: Capillary refill < 3 seconds Patient's skin is warm and dry. Respiratory: Airway is patent Respiratory effort is even, unlabored, Respiratory pattern is regular, symmetrical. GI: No signs and/or symptoms were reported involving the gastrointestinal system. : No signs and/or symptoms were reported regarding the genitourinary system. Derm: No signs and/or symptoms reported regarding the dermatologic system. Musculoskeletal: No signs and/or symptoms reported regarding the musculoskeletal system. Historical: - Allergies: 01:38 Fentanyl; itching; vc1 01:38 Morphine; vc1 - Home Meds: 01:38 aspirin 81 mg Oral tab 1 tab once daily [Active]; atorvastatin 20 mg Oral tab 1 tab vc1 once daily [Active]; Coumadin 2.5 mg Oral tab 1 tab once daily [Active]; gabapentin Oral [Active]; [place] 7.5-325 mg Oral tab 1 tab every 4 hours [Active]; pantoprazole Oral [Active]; sotalol 80 mg Oral tab 2 times per day [Active]; - PMHx: 01:38 Atrial Fib; Back pain; GERD; Hyperlipidemia; Hypertension; mechanical heart valve; vc1 - PSHx: 01:38 Aortic valve replacement; vc1 - Immunization history:: Adult Immunizations up to date, Client reports having NOT received the Covid vaccine. - Social history:: Smoking status: Patient denies any tobacco usage or history of. Screenin:43 Abuse screen: Denies threats or abuse. Nutritional screening: No deficits noted. bb Tuberculosis screening: No symptoms or risk factors identified. Fall Risk None identified. Assessment: 04:43 General: Appears uncomfortable, emaciated, Behavior is cooperative, anxious. Pain: bb Complains of pain in chest Pain does not radiate. Pain currently is 9 out of 10 on a pain scale. Pain began suddenly. Neuro: Level of Consciousness is awake, alert, obeys commands, Oriented to person, place, time, situation. Cardiovascular: Heart tones S1 S2 present Capillary refill < 3 seconds Patient's skin is warm and dry. Rhythm is atrial fibrillation with rapid ventricular response. Respiratory: Reports shortness of breath Respiratory effort is unlabored. GI: No signs and/or symptoms were reported involving the gastrointestinal system. Derm: Skin is fragile, Wound noted right arm. Musculoskeletal: Circulation, motion, and sensation intact. 05:36 Reassessment: Patient is alert, oriented x 3, equal unlabored respirations, skin bb warm/dry/pink. IV site intact, patent with no erythema or edema noted. Vital Signs: 01:25 BP 128 / 74; Pulse 54; Resp 17; Temp 98.1; Pulse Ox 100% ; Weight 46.72 kg; Height 5 vc1 ft. 3 in. (160.02 cm); Pain 9/10; 04:45 BP 119 / 80; Pulse 125; Resp 18 S; Pulse Ox 100% on R/A; bb 05:37 BP 124 / 73; Pulse 111; Resp 16 S; Pulse Ox 94% on R/A; bb 01:25 Body Mass Index 18.25 (46.72 kg, 160.02 cm) [facility] ED Course: 00:11 Patient arrived in ED. bp1 01:27 Triage completed. vc1 01:40 Arm band placed on left wrist. vc1 04:08 Jaycob Cano MD is Attending Physician. 7 04:36 XRAY Chest (1 view) In Process Unspecified. EDMS 04:43 Radha Pandey, RN is Primary Nurse. bb 04:43 Patient has correct armband on for positive identification. Bed in low position. Call bb light in reach. Side rails up X 1. Client placed on continuous cardiac and pulse oximetry monitoring. NIBP monitoring applied. Warm blanket given. 04:43 Initial lab(s) drawn, by ak, sent to lab. Inserted saline lock: 20 gauge in left bb antecubital area, using aseptic technique. Blood collected. Patient maintains SpO2 saturation greater than 95% on room air. 06:50 Evin Dumont MD is Hospitalizing Provider. [facility] 09:26 Primary Nurse role handed off by Radha Pandey, RN sr5 09:30 Rachelle Ziegler, PHILLIP is Primary Nurse. 9 16:48 No provider procedures requiring assistance completed. j9 16:48 IV discontinued. jg9 Administered Medications: 04:54 Drug: Metoprolol 5 mg {Note: BP 121/85 HR 123.} Route: IVP; Site: left antecubital; bb 05:00 Drug: Metoprolol 5 mg {Note: BP 129/72 HR 86.} Route: IVP; Site: left antecubital; bb 05:06 Drug: Metoprolol 5 mg {Note: BP 133/68 HR 93.} Route: IVP; Site: left antecubital; bb 05:36 Follow up: Response: No adverse reaction bb 05:36 Drug: Dilaudid (HYDROmorphone) 1 mg Route: IVP; Site: left antecubital; bb 06:24 Follow up: Response: Pain is decreased bb 09:30 Drug: Magnesium Sulfate 1 grams Route: IVPB; Infused Over: 1 hrs; Site: left 9 antecubital; 09:30 Drug: Potassium Effervescent Tablet 50 mEq Route: PO; jg9 Medication: 16:48 VIS not applicable for this client. jg9 Outcome: 06:51 Decision to Hospitalize by Provider. [facility] 16:48 [place] [facility] [place]:48 Condition: stable 16:48 Admitted to ER Hold. Please see [facility] for further documentation. jg9 16:48 Patient left the ED. jg9 Signatures: Dispatcher [employer] EDRadha Mclaughlin RN RN bb Romeo Chavarria RN RN sr5 Jeannie Rivas Maurice, MD MD mh7 Rachelle Ziegler RN RN jg9 Alena Camilo RN RN vc1
--- NOTE | 2021-10-09 06:52 | EDPHYS ---
Physician Documentation [facility] Name: Michelle Saavedra Age: 66 yrs Sex: Female : 1955 Arrival Date: 10/09/2021 Time: 00:11 Bed 19 Private MD: ED Physician Jaycob Cano HPI: 10/09 04:30 This 66 yrs old Female presents to ER via Ambulatory with complaints of Chest mh7 Pain > 30 y/o. 04:30 The patient or guardian reports chest pain that is located primarily in the anterior mh7 chest wall, left. 04:30 Onset: last night. mh7 04:30 The pain does not radiate. Associated signs and symptoms: Pertinent positives: nausea, mh7 palpitations, shortness of breath, Pertinent negatives: abdominal pain, cough, diaphoresis, dizziness, headache, lower extremity pain, lower extremity swelling, lightheadedness, near syncope, recent travel, syncope, vomiting. The chest pain is described as a pressure. Duration: The patient or guardian reports multiple episodes, that are intermittent, that wax and wane, with no pattern. Modifying factors: The symptoms are alleviated by nothing. the symptoms are aggravated by nothing. Severity of pain: At its worst the pain was moderate last night, in the emergency department the pain has improved mildly. Historical: - Allergies: 01:38 Fentanyl; itching; vc1 01:38 Morphine; vc1 - Home Meds: 01:38 aspirin 81 mg Oral tab 1 tab once daily [Active]; atorvastatin 20 mg Oral tab 1 tab vc1 once daily [Active]; Coumadin 2.5 mg Oral tab 1 tab once daily [Active]; gabapentin Oral [Active]; [place] 7.5-325 mg Oral tab 1 tab every 4 hours [Active]; pantoprazole Oral [Active]; sotalol 80 mg Oral tab 2 times per day [Active]; - PMHx: 01:38 Atrial Fib; Back pain; GERD; Hyperlipidemia; Hypertension; mechanical heart valve; vc1 - PSHx: 01:38 Aortic valve replacement; vc1 - Immunization history:: Adult Immunizations up to date, Client reports having NOT received the Covid vaccine. - Social history:: Smoking status: Patient denies any tobacco usage or history of. ROS: 04:30 Constitutional: Negative for fever, chills, and weight loss, Eyes: Negative for injury, mh7 pain, redness, and discharge, ENT: Negative for injury, pain, and discharge, Neck: Negative for injury, pain, and swelling, Back: Negative for injury and pain, : Negative for injury, bleeding, discharge, and swelling, MS/Extremity: Negative for injury and deformity, Skin: Negative for injury, rash, and discoloration, Neuro: Negative for headache, weakness, numbness, tingling, and seizure, Psych: Negative for depression, anxiety, suicide ideation, homicidal ideation, and hallucinations, Allergy/Immunology: Negative for hives, rash, and allergies, Endocrine: Negative for neck swelling, polydipsia, polyuria, polyphagia, and marked weight changes, Hematologic/Lymphatic: Negative for swollen nodes, abnormal bleeding, and unusual bruising. Exam: 04:30 Constitutional: This is a well developed, well nourished patient who is awake, alert, mh7 and in no acute distress. Head/Face: Normocephalic, atraumatic. Eyes: Pupils equal round and reactive to light, extra-ocular motions intact. Lids and lashes normal. Conjunctiva and sclera are non-icteric and not injected. Cornea within normal limits. Periorbital areas with no swelling, redness, or edema. Neck: Trachea midline, no thyromegaly or masses palpated, and no cervical lymphadenopathy. Supple, full range of motion without nuchal rigidity, or vertebral point tenderness. No Meningismus. Chest/axilla: Normal chest wall appearance and motion. Nontender with no deformity. No lesions are appreciated. 04:30 Respiratory: Lungs have equal breath sounds bilaterally, clear to auscultation and percussion. No rales, rhonchi or wheezes noted. No increased work of breathing, no retractions or nasal flaring. Abdomen/GI: Soft, non-tender, with normal bowel sounds. No distension or tympany. No guarding or rebound. No evidence of tenderness throughout. Back: No spinal tenderness. No costovertebral tenderness. Full range of motion. Skin: Warm, dry with normal turgor. Normal color with no rashes, no lesions, and no evidence of cellulitis. MS/ Extremity: Pulses equal, no cyanosis. Neurovascular intact. Full, normal range of motion. Neuro: Awake and alert, GCS 15, oriented to person, place, time, and situation. Cranial nerves II-XII grossly intact. Motor strength 5/5 in all extremities. Sensory grossly intact. Cerebellar exam normal. Normal gait. Psych: Awake, alert, with orientation to person, place and time. Behavior, mood, and affect are within normal limits. 04:30 Cardiovascular: Rate: tachycardic, Rhythm: irregularly irregular, Pulses: no pulse deficits are appreciated, Heart sounds: normal, normal S1and S2, Edema: is not appreciated, JVD: is not appreciated. Vital Signs: 01:25 BP 128 / 74; Pulse 54; Resp 17; Temp 98.1; Pulse Ox 100% ; Weight 46.72 kg; Height 5 vc1 ft. 3 in. (160.02 cm); Pain 9/10; 04:45 BP 119 / 80; Pulse 125; Resp 18 S; Pulse Ox 100% on R/A; bb 05:37 BP 124 / 73; Pulse 111; Resp 16 S; Pulse Ox 94% on R/A; bb 01:25 Body Mass Index 18.25 (46.72 kg, 160.02 cm) vc1 MDM: 06:49 Differential diagnosis: abnormal EKG, acute myocardial infarction, acute pericarditis, 7 anxiety, coronary artery disease chest wall pain, congestive heart failure costochondritis, pneumonia, pneumothorax. HEART Score: History: Moderately Suspicious (1), ECG: Non specific repolarization disturbance / LBTB / PM (1), Age: > or = 65 years (2), Risk Factors: 1 or 2 risk factors (1), [Hypercholesterolemia] [Hypertension] Troponin: < or = 1 x Normal Limit (0), Total Score = 5. Data reviewed: vital signs, nurses notes, old medical records, lab test result(s), cardiac enzymes, CBC, electrolytes, EKG, radiologic studies, plain films. Data interpreted: Pulse oximetry: on room air is 96 %. Interpretation: normal. Counseling: I had a detailed discussion with the patient and/or guardian regarding: the historical points, exam findings, and any diagnostic results supporting the discharge/admit diagnosis, lab results, radiology results, the need for further work-up and treatment in the hospital. Response to treatment: the patient's symptoms have mildly improved after treatment. 06:51 Patient medically screened. [facility] 10/09 04:13 Order name: Basic Metabolic Panel; Complete Time: 06:19 10/09 04:13 Order name: CBC with Diff; Complete Time: 05:58 10/09 04:13 Order name: Troponin HS; Complete Time: 06:19 10/09 04:51 Order name: NT PRO-BNP; Complete Time: 06:19 EDMS 10/09 06:05 Order name: Magnesium; Complete Time: 06:19 EDMS 10/09 08:11 Order name: T4 Free; Complete Time: 12:51 EDMS 10/09 08:11 Order name: Thyroid Stimulating Hormone; Complete Time: 12:51 EDMS 10/09 08:11 Order name: Urinalysis EDMS 10/09 08:12 Order name: CBC with Automated Diff EDMS 10/09 08:12 Order name: CBC with Automated Diff EDMS 10/09 08:12 Order name: Comprehensive Metabolic Panel [facility]OK 10/09 08:12 Order name: Comprehensive Metabolic Panel [facility] 10/09 04:13 Order name: XRAY Chest (1 view) 10/09 08:12 Order name: Lipid Profile [facility] 10/09 08:12 Order name: Lipid Profile [facility] 10/09 08:12 Order name: Magnesium [facility] 10/09 08:12 Order name: Magnesium [facility] 10/09 08:12 Order name: Troponin High Sensitivity [facility] 10/09 08:12 Order name: Troponin High Sensitivity [facility] 10/09 08:12 Order name: Troponin High Sensitivity [facility] 10/09 08:13 Order name: COVID-19 SARS RT PCR (Document "Date of Onset" if Symptomatic); Complete bd Time: 12:51 10/09 08:24 Order name: Protime (+INR); Complete Time: 12:51 [facility]OK 10/09 14:24 Order name: Urinalysis [facility] 10/09 14:54 Order name: Urine Microscopic Only [facility] 10/09 04:13 Order name: EKG; Complete Time: 04:14 10/09 04:13 Order name: Cardiac monitoring; Complete Time: 04:46 10/09 04:13 Order name: EKG - Nurse/Tech; Complete Time: 04:13 10/09 04:13 Order name: IV Saline Lock; Complete Time: 04:46 10/09 04:13 Order name: Labs collected and sent; Complete Time: 04:46 10/09 04:13 Order name: O2 Per Protocol; Complete Time: 04:46 10/09 04:13 Order name: O2 Sat Monitoring; Complete Time: 04:46 10/09 07:42 Order name: EKG Electrocardiogram [facility] 10/09 08:09 Order name: CONS Physician Consult [facility] 10/09 08:11 Order name: Heart Healthy EDMS Administered Medications: 04:54 Drug: Metoprolol 5 mg {Note: BP 121/85 HR 123.} Route: IVP; Site: left antecubital; bb 05:00 Drug: Metoprolol 5 mg {Note: BP 129/72 HR 86.} Route: IVP; Site: left antecubital; bb 05:06 Drug: Metoprolol 5 mg {Note: BP 133/68 HR 93.} Route: IVP; Site: left antecubital; bb 05:36 Follow up: Response: No adverse reaction bb 05:36 Drug: Dilaudid (HYDROmorphone) 1 mg Route: IVP; Site: left antecubital; bb 06:24 Follow up: Response: Pain is decreased bb 09:30 Drug: Magnesium Sulfate 1 grams Route: IVPB; Infused Over: 1 hrs; Site: left jg9 antecubital; 09:30 Drug: Potassium Effervescent Tablet 50 mEq Route: PO; jg9 Disposition Summary: 10/09/21 06:51 Hospitalization Ordered Hospitalization Status: Inpatient Admission [facility] Provider: Evin Dumont Condition: Stable [facility] Problem: an acute exacerbation [facility] Symptoms: have improved [facility] Bed/Room Type: Standard [facility] Location: [facility] ER HOLD(10/09/21 15:14) Room Assignment: ERHOLD-(10/09/21 15:14) Diagnosis - Chest pain, unspecified 7 - Unspecified atrial fibrillation [facility] Forms: - Medication Reconciliation Form 7 - SBAR form 7 Signatures: Dispatcher [employer] Radha Mclaughlin RN RN bb Williams, Irene, RN RN Ean Dumont MD MD rn Holmes, Maurice, MD MD Rachelle Mane RN RN jg9 Alena Camilo RN RN vc1 Corrections: (The following items were deleted from the chart) 04:50 04:44 PROBNP+C.LAB.BRZ ordered. EDMS EDMS 06:05 05:59 MAGNESIUM+C.LAB.BRZ [facility] 06[facility]urg (Inpatient) [facility] 15: 06:51 [facility]
[2021-10-09] MEDS ORDERED: ONDANSETRON 4 MG/2 ML VIAL IV PRN (08:07)
[2021-10-09] MEDS ORDERED: METOPROLOL TAR 25 MG TAB PO SCH (08:15)
[2021-10-09] MEDS ORDERED: HYDROCODONE/APAP 7.5/325 MG TAB PO PRN (08:15)
--- NOTE | 2021-10-09 08:21 | P.HP ---
Certification for Inpatient Patient admitted to: Observation With expected LOS: <2 Midnights Practitioner: I am a practitioner with admitting privileges, knowledge of patient current condition, hospital course, and medical plan of care. Services: Services provided to patient in accordance with Admission requirements found in Title 42 Section 412.3 of the Code of Federal Regulations Patient History Date of Service: 10/10/21 Reason for admission: afib RVR History of Present Illness: 66yo F, PMH: paroxysmal afib, chronic pain, mech valve on coumadin Presents to ED due to palpitations, felt heart racing. States no change in medications recently, in usual state of health. No fever/chills. ~2 days ago she was scratched on right arm by her dog, no purulent drainage. Nothing in particular has aggravated or alleviated her palpitations. States she has been taking her metoprolol, unable to tell me dosage. In the ED, noted to have afib with RVR, HR: 120-130s. Given IV metoprolol x3 with some improvement. ED physician requests admission for further management. troponin ok. Allergies morphine Allergy (Intermediate, Verified 05/30/21 00:39) panic ATTACK; shaking fentanyl Allergy (Verified 05/30/21 00:39) Itching Home Medications: Atorvastatin Calcium [Lipitor*] 80 mg PO DAILY 01/25/21 Gabapentin 300 mg PO BID 01/25/21 Pantoprazole [Protonix Tab*] 40 mg PO BID 01/25/21 Metoprolol Tartrate [Lopressor*] 12.5 mg PO BID 6AM 6PM #60 tab 01/29/21 Hydrocodone Bit/Acetaminophen [[place] 7.5-325 Tablet] 1 tab PO TID PRN 09/29/21 Warfarin Sodium [Coumadin*] 2 mg PO DAILY #30 tab 09/29/21 Zolpidem Tartrate [Ambien] 1 tab PO BEDTIME 09/29/21 Amiodarone HCl [Cordarone*] 1 tab PO SEECOM #50 tab 10/09/21 Amoxicillin/Potassium Clav [Augmentin 500-125 Tablet] 1 each PO BID 10 Days #20 tablet 10/09/21 - Past Medical/Surgical History Diabetic: No -: Atrial fibrillation on warfarin -: depression -: HTN -: Chronic diastolic congestive heart failure -: GERD -: mechanical aortic valve -: palpitations -: Atrial fibrillation on warfarin -: Chronic diastolic congestive heart failure -: aortic valve replacement -: cardioversion -: tubal ligation Psychosocial/ Personal History: Patient lives at home with her children - Family History Brother -: Heart disease, Cancer Notes: heart attack Mother -: Heart disease, Diabetes Notes: of heart attack Father -: Heart disease Notes: of heart attack Sister -: Heart disease, Diabetes, Cancer Notes: sisters x2 - DM. sister x1 - heart attack. sister- lung cancer - Social History Smoking Status: Former smoker Alcohol use: No CD- Drugs: No Caffeine use: No Review of Systems 10-point ROS is otherwise unremarkable Physical Examination - Physical Exam General: Alert, In no apparent distress, Oriented x3 HEENT: EOMI, Sclerae nonicteric Respiratory: Clear to auscultation bilaterally, Normal air movement Cardiovascular: No edema, Irregular heart rate/rhythm Gastrointestinal: Soft and benign, Non-distended, No tenderness Musculoskeletal: No contractures, No erythema Integumentary: No rashes, No significant lesion Neurological: Normal speech, Normal affect - Studies Laboratory Data (last 24 hrs) 10/09/21 05:58: Magnesium Cancelled 10/09/21 04:36: WBC 5.9 D, Hgb 11.8 L, Hct 35.4 L, Plt Count 266 10/09/21 04:36: Sodium 139, Potassium 3.2 L, BUN 11, Creatinine 1.00, Glucose 105, Magnesium 1.7 L Assessment and Plan - Advance Directives Does patient have a Living Will: No Does patient have a Durable POA for Healthcare: No Physician Review Additional Text: Problem List Afib w/ RVR chest pain cellulitis - RUE laceration chronic pain GERD HTN mech Valve on coumadin 2mg daily denies changes in medications, reports she has been compliant afib possibly triggered from cellulitis - superficial laceration from dog on RUE, no purulent drainage, no abscess, with surrounding erythema cover with augmentin, avoid QTc prolonging medications patient with chronic pain on [place] 7.5 TID, COMPONENTS ENGINEER reviewed, no red flags. Despite on this medication for a long time, states it doesn't help and wants dilaudid - states she always gets dilaudid in the hospital, or fentanyl states she "expects to be pain free when in the hospital", became agitated when not given more dilaudid continue home dose of norco, will not continue dilaudid s/p IV metoprolol with some improvement, but still tachycardic 110s-120s restart home metoprolol -states she thinks she takes 25mg bid but not sure check INR confirm home meds, restart as appropriate cardiology consulted, patient has been prescribed amiodarone in past, doesn't seem she ever picked up prescription; restart amiodarone VTE: coumadin Code: full Dispo: home, ~1 day Time Spent Managing Pts Care (In Minutes): 75
[2021-10-09] MEDS ORDERED: PANTOPRAZOLE 40MG TABLET PO SCH (09:00)
[2021-10-09] MEDS ORDERED: AMOX/K CLAV 875 MG TAB PO SCH (09:00)
[2021-10-09] MEDS ORDERED: GABAPENTIN 300 MG CAP PO SCH (09:00)
[2021-10-09] MEDS ORDERED: POTASSIUM 25 MEQ EFFERV TAB ONE (09:14)
[2021-10-09] MEDS ORDERED: MAGNESIUM SULFATE 1 gm IVPB 1 GM/100 ML BAG IV ONE (09:14)
[2021-10-09] MEDS ORDERED: AMIODARONE HCL 200 MG TAB PO SCH (10:00)
[2021-10-09] MEDS ORDERED: GABAPENTIN 300 MG CAP ONE (10:03)
[2021-10-09] MEDS ORDERED: PANTOPRAZOLE 40MG TABLET PO ONE (10:03)
[2021-10-09] MEDS ORDERED: AMOX/K CLAV 875 MG TAB ONE (10:03)
[2021-10-09] MEDS ORDERED: METOPROLOL TAR 25 MG TAB ONE (10:04)
[2021-10-09 10:41] VITALS: O2SAT 94
[2021-10-09 11:25] VITALS: BMI 18.2
[2021-10-09] MEDS ORDERED: AMIODARONE HCL 200 MG TAB ONE (11:38)
[2021-10-09 12:16] VITALS: BP 108/50
[2021-10-09 12:45] LABS: Protime INR 6.17
[2021-10-09 12:50] LABS: Thyroid Stimulating Hormone 1.79 uIU/mL (0.360-3.740)
[2021-10-09] MEDS ORDERED: PNEUMOCOCCAL VACCINE 0.5 ML IMVAC ONE (13:00)
[2021-10-09 14:24] LABS: Urine Appearance Clear (Clear); Urine Bilirubin Negative (Negative); Urine Blood 2+ (Negative); Urine Color Yellow (Yellow); Urine Glucose Negative (Negative); Urine Protein Negative (Negative); Urine Urobilinogen 0.2 mg/dL (0.2-1.0); Urine pH 6.5 (5.0-7.0)
--- NOTE | 2021-10-09 14:39 | EKG ---
Test Date: 2021-10-09 Test Time: 01:30:50 Air Battle Manager: ANGE MEASUREMENT RESULTS: Intervals: Rate: 98 [place]: QRSD: 92 QT: 380 QTc: 485 [place]: P: IL: QRS: 61 T: 60 INTERPRETIVE STATEMENTS: Atrial fibrillation Nonspecific ST and T wave abnormality Abnormal ECG Compared to ECG 10/09/2021 01:30:14 Possible ischemia no longer present ST (T wave) deviation still present Electronically Signed On 10-09-21 14:37:31 CDT by Jam Bolanos
--- NOTE | 2021-10-09 14:39 | EKG ---
Test Date: 2021-10-09 Test Time: 01:30:14 Die Out Worker: ANGE MEASUREMENT RESULTS: Intervals: Rate: 97 [place]: QRSD: 90 QT: 332 QTc: 421 [place]: P: IA: QRS: 63 T: 59 INTERPRETIVE STATEMENTS: Atrial fibrillation ST & T wave abnormality, consider inferior ischemia Abnormal ECG Compared to ECG 09/29/2021 01:06:32 Possible ischemia now present Sinus bradycardia no longer present ST (T wave) deviation still present Electronically Signed On 10-09-21 14:37:35 CDT by Jam Bolanos
[2021-10-09 14:51] LABS: Urine Microscopic Reflex ORDER UMIC
[2021-10-09 14:53] LABS: Urine Bacteria NONE SEEN /HPF (<20)
[2021-10-09] MEDS ORDERED: HYDROCODONE/APAP 7.5/325 MG TAB ONE (16:09)
[2021-10-09] MEDS ORDERED: WARFARIN SODIUM 2 MG TAB PO SCH (17:00)
[2021-10-09 17:12] VITALS: TEMP 98.1
--- NOTE | 2021-10-09 18:42 | RAD REPORT ---
EXAM DESCRIPTION: RAD - Chest Single View - 10/09/2021 4:33 am CLINICAL HISTORY: CHEST PAIN COMPARISON: 09/29/2021. TECHNIQUE: XR CHEST 1 VIEW 10/09/2021 4:13 AM CDT FINDINGS: The heart is mildly enlarged. Sternotomy was performed. Lungs are clear without consolidat ion, atelectasis, mass or edema. There is no pleural effusion. There is no pneumothorax. There are no acute osseous findings. IMPRESSION: No change. No definite pneumonia. Electronically signed by: Vitaly Montanez MD 10/09/2021 5:27 AM CDT Due to temporary technical issues with the PACS/Fluency reporting system, reports are being signed by the in house radiologists without. review as a courtesy to insure prompt reporting. The interpreting radiologist is fully responsible for the content of the report
[2021-10-09] MEDS ORDERED: ATORVASTATIN 80 MG TAB PO SCH (21:00)
== END 2021-10-09 16:49 | disposition home or self-care (01) ==
LOC: ER 00:10 → ERHOLD 08:07
PROVIDERS: ADMIT Hospitalist; ATTEND Hospitalist
DX: I48.91 Unspecified atrial fibrillation (principal); R07.9 Chest pain, unspecified; S41.111A Laceration without foreign body of right upper arm, initial encounter; L03.113 Cellulitis of right upper limb; G89.29 Other chronic pain; K21.9 Gastro-esophageal reflux disease without esophagitis; I11.0 Hypertensive heart disease with heart failure; I50.32 Chronic diastolic (congestive) heart failure; E78.5 Hyperlipidemia, unspecified; F32.A Depression, unspecified; Z95.2 Presence of prosthetic heart valve; Z79.01 Long term (current) use of anticoagulants; Z79.899 Other long term (current) drug therapy; Z88.5 Allergy status to narcotic agent; Z87.891 Personal history of nicotine dependence; Z98.51 Tubal ligation status; Z28.310 Unvaccinated for COVID-19; Z20.822 Contact with and (suspected) exposure to COVID-19; Z82.49 Family history of ischemic heart disease and other diseases of the circulatory system; Z83.3 Family history of diabetes mellitus; Z80.1 Family history of malignant neoplasm of trachea, bronchus and lung
CPT/HCPCS: 93005 ×2; 85025; 80048; 36415; 83735; 85610; 84443; 84484 ×2; 84439; 83880; 71045; 94760; U0003; J3475; J1170; 81003; 81015; 96374; 96375; 99285; G0378

== ENCOUNTER 2021-12-24 20:49 | Observation (INO) | payer OTHER ==
--- OUTSIDE RECORDS SUMMARY | 2021-12-24 20:54 | XMS REPORT | Continuity of Care Document ---
:1955 Author Organization [facility] t Address [address] [place] [address] Care Team Providers Name Role Phone Saurabh Dobson Primary Care Physician Saurabh Dobson Attending Clinician Unavailable JAMAICA POMPA Attending Clinician Unavailable [place] Pompa MD Attending Clinician Pob, Andre Lab Main Attending Clinician Unavailable Doctor Unassigned, [place] Attending Clinician Unavailable Payers Payer Name Policy Type Policy Number Effective Date Expiration Date S alfonso [facility] [id number] 2013 00:00:00 [facility] [id number] 2020 00:00:00 COMP HMO D SNP Problems Condition Condition Condition Status Onset Resolution Last Treating Co mments Source Name Details Category Date Date Treatment Clinician Date Atrial Atrial Disease Active Univers fibrillati fibrillati 8-11 it y of on on 00:00: [place] 00 Medical Branch E44.0 E44.0 Disease Active 2020-04 Univers Moderate Moderate 1-19 ity of protein protein 00:00: [place] calorie calorie 00 Medical malnutriti malnutriti Br anch on on Other Other Disease Active 2020-04 Univers chest pain chest pain 1-19 it y of 00:00: [place] 00 Medical Branch Chest pain Chest pain Disease Active 2020-04 U nivers 1-17 ity of 00:00: [place] [facility] Elevated Elevated Disease Active 2020-04 [...] 8-20 it y of emia emia 00:00: [place] [facility] Essential Essential Disease Active Uni vers hypertensi hypertensi 8-20 it y of on on 00:00: [place] [facility] Anticoagul Anticoagul Disease Active U nivers ated ated 8-20 ity of 00:00: [place] [facility] Coronary Coronary Disease Active Unive rs artery artery 8-20 ity of disease disease 00:00: [place] involving involving 00 Medi tyrone [place] Branch coronary coronary artery of artery of [place] 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 2-20 ity of disease disease 00:00: [place] involving involving 00 Medi tyrone [place] Branch heart heart without without angina angina pectoris, pectoris, unspecifie unspecifie d vessel d vessel or lesion or lesion type type Atrial Atrial Disease Active Univers flutter flutter 4-03 ity of 00:00: [place] [facility] Aortic Aortic Disease Active 2015-04 Univers valve valve 0-28 ity of replaced replaced 00:00: [place] [Z95.2] [Z95.2] 00 Medical Branch Chest pain Chest pain Disease Active 2015-04 U nivers with high with high 0-22 ity of risk for risk for 00:00: [place] cardiac cardiac 00 Medical etiology etiology Branch Allergies, Adverse Reactions, Alerts Allergy Allergy Status Severity Reaction(s) Onset Inactive Treating Comm ents Source Name Type Date Date Clinician Morphine Propensi Active Shortness of Univers ty to Breath 1-15 ity of adverse 00:00: [place] reaction 00 Medical s to Branch drug MORPHINE DRUG Active High SOB Univers INGREDI 1-15 ity of 00:00: [place] 00 Medical Branch Social History Social Habit Start Date Stop Date Quantity Comments Source Exposure to 2021-12-04 2021-12-14 Not sure [facility]-CoV-2 00:00:00 12:03:00 [facility] (event) Branch Alcohol intake 2021-11-23 2021-11-23 Current drinker Unive rsity of 00:00:00 00:00:00 of alcohol [facility] (finding) [place] Tobacco use and 2017-06-04 2017-06-04 Smokeless tobacco Un iversity of exposure 00:00:00 00:00:00 non-[address] [facility] Sex Ass[birth year] At [birth year] Universit y of 00:00:00 00:00:[address] [facility] Smoking Status Start Date Stop Date Source Never smoked tobacco [facility] Medications Ordered Filled Start Stop Current Ordering Indication Dosage Frequency Signature Comments Components Source Medication Medication Date Date Medication? Clinician (SIG) Name Name ezetimibe Yes 10mg Take 1 Univer s (ZETIA) 10 9-02 tablet by ity of mg tablet 00:[place] the Medical morning. Branch warfarin Yes [id number] 1mg Take 1 Univers mg tablet 8-24 tablet by ity o f 00:00: mouth [place] 00 every Medical evening. Branch Alternate take 1mg x2days, then 2mg x 1 day warfarin Yes [id number] 1mg Take 1 Univers mg tablet 8-24 tablet by ity o f 00:00: mouth [place] 00 every Medical evening. Branch Alternate take 1mg x2days, then 2mg x 1 day warfarin Yes [id number] 1mg Take 1 Univers mg tablet 8-24 tablet by ity o f 00:00: mouth [place] 00 every Medical evening. Branch Alternate take 1mg x2days, then 2mg x 1 day warfarin 1 Yes [id number] 1mg Take 1 Univers mg tablet 8-24 tablet by ity o f 00:00: mouth [place] 00 every Medical evening. Branch Alternate take 1mg x2days, then 2mg x 1 day warfarin 1 Yes [id number] 1mg Take 1 Univers mg tablet 8-24 tablet by ity o f 00:00: mouth [place] 00 every Medical evening. Branch Alternate take 1mg x2days, then 2mg x 1 day warfarin 1 Yes [id number] 1mg Take 1 Univers mg tablet 8-24 tablet by ity o f 00:00: mouth [place] 00 every Medical evening. Branch Alternate take 1mg x2days, then 2mg x 1 day warfarin 1 2021- No [id number] 2mg Take 2 Univers mg tablet 8- 08-24 tablets by ity of 00:00: 00:00 mouth [place] 00 :00 every Medical evening. Branch dofetilide 2021- Yes [id number] 125ug Take 1 Univers 125 mcg 8-19 08-27 capsule by ity o f capsule 00:00: 04:59 mouth [place] 00 :00 every 12 Medical (twelve) Branch hours for 7 days. dofetilide 2021- Yes [id number] 125ug Take 1 Univers 125 mcg 8-19 08-27 capsule by ity o f capsule 00:00: 04:59 mouth [place] 00 :00 every 12 Medical (twelve) Branch hours for 7 days. dofetilide 2021- Yes [id number] 125ug Take 1 Univers 125 mcg 8-17 11-16 capsule by ity o f capsule 00:00: 05:59 mouth [place] 00 :00 every 12 Medical (twelve) Branch hours for 90 days. dofetilide 2021- Yes [id number] 125ug Take 1 Univers 125 mcg 8-17 11-16 capsule by ity o f capsule 00:00: 05:59 mouth [place] 00 :00 every 12 Medical (twelve) Branch hours for 90 days. dofetilide 2021- Yes [id number] 125ug Take 1 Univers 125 mcg 8-17 11-16 capsule by ity o f capsule 00:00: 05:59 mouth [place] 00 :00 every 12 Medical (twelve) Branch hours for 90 days. dofetilide 2021- Yes [id number] 125ug Take 1 Univers 125 mcg 8-17 11-16 capsule by ity o f capsule 00:00: 05:59 mouth [place] 00 :00 every 12 Medical (twelve) Branch hours for 90 days. dofetilide 2021- Yes [id number] 125ug Take 1 Univers 125 mcg 8-17 11-16 capsule by ity o f capsule 00:00: 05:59 mouth [place] 00 :00 every 12 Medical (twelve) Branch hours for 90 days. dofetilide 2021- Yes [id number] 125ug Take 1 Univers 125 mcg 8-17 11-16 capsule by ity o f capsule 00:00: 05:59 mouth [place] 00 :00 every 12 Medical (twelve) Branch hours for 90 days. dofetilide 2021- Yes [id number] 125ug Take 1 Univers 125 mcg 8-17 11-16 capsule by ity o f capsule 00:00: 05:59 mouth [place] 00 :00 every 12 Medical (twelve) Branch hours for 90 days. atorvastati Yes 80mg Take 1 Univ ers n 80 mg 7-12 tablet by ity of tablet 00:00: mouth at [place] [address] bedtime. Medical Branch atorvastati Yes 80mg Take 1 Univ ers n 80 mg 7-12 tablet by ity of tablet 00:00: mouth at [place] [address] bedtime. Medical Branch atorvastati Yes 80mg Take 1 Univ ers n 80 mg 7-12 tablet by ity of tablet 00:00: mouth at [place] [address] bedtime. Medical Branch atorvastati 0 Yes 80mg Take 1 Univ ers n 80 mg 7-12 tablet by ity of tablet 00:00: mouth at [place] [address] bedtime. Medical Branch atorvastati 0 Yes 80mg Take 1 Univ ers n 80 mg 7-12 tablet by ity of tablet 00:00: mouth at [place] 00 bedtime. Medical Branch atorvastati 0 Yes 80mg Take 1 Univ ers n 80 mg 7-12 tablet by ity of tablet 00:00: mouth at [place] [address] bedtime. Medical Branch atorvastati 0 Yes 80mg Take 1 Univ ers n 80 mg 7-12 tablet by ity of tablet 00:00: mouth at [place] 00 bedtime. Medical Branch ezetimibe 0 Yes 10mg Take 1 Univer s (ZETIA) 10 5-20 tablet by ity of mg tablet 00:00: mouth [place] 00 daily. Medical Branch ezetimibe 2021-0 Yes 10mg Take 1 Univer s (ZETIA) 10 5-20 tablet by ity of mg tablet 00:00: mouth [place] 00 daily. Medical Branch ezetimibe 2021-0 Yes 10mg Take 1 Univer s (ZETIA) 10 5-20 tablet by ity of mg tablet 00:00: mouth [place] 00 daily. Medical Branch ezetimibe 2021-0 Yes 10mg Take 1 Univer s (ZETIA) 10 5-20 tablet by ity of mg tablet 00:00: mouth [place] 00 daily. Medical Branch ezetimibe 2021-0 Yes 10mg Take 1 Univer s (ZETIA) 10 5-20 tablet by ity of mg tablet 00:00: mouth [place] 00 daily. Medical Branch ezetimibe 0 Yes 10mg Take 1 Univer s (ZETIA) 10 5-20 tablet by ity of mg tablet 00:00: mouth [place] 00 daily. Medical Branch ezetimibe 2021- No 10mg Take 1 Unive rs (ZETIA) 10 5-20 09-02 tablet by ity of mg tablet 00:00: 00:00 mouth [place] 00 :00 daily. Medical Branch furosemide 0 Yes [id number] 40mg Take 2 Univers 20 mg 2-16 02 tablets by ity of tablet 00:00: mouth [place] 00 daily. Medical Branch furosemide 2021-0 Yes [id number] 40mg Take 2 Univers 20 mg 2-16 02 tablets by ity of tablet 00:00: mouth [place] 00 daily. Medical Branch furosemide 2021-0 Yes [id number] 40mg Take 2 Univers 20 mg 2-16 02 tablets by ity of tablet 00:00: mouth [place] 00 daily. Medical Branch furosemide 2021-0 Yes [id number] 40mg Take 2 Univers 20 mg 2-16 02 tablets by ity of tablet 00:00: mouth [place] 00 daily. Medical Branch furosemide 2021-0 Yes [id number] 40mg Take 2 Univers 20 mg 2-16 02 tablets by ity of tablet 00:00: mouth [place] 00 daily. Medical Branch furosemide Yes [id number] 40mg Take 2 Univers 20 mg 2-16 02 tablets by ity of tablet 00:00: mouth 00 daily. Medical Branch furosemide Yes [id number] 40mg Take 2 Univers 20 mg 2-16 02 tablets by ity of tablet 00:00: mouth 00 daily. Medical Branch metoprolol 2020-04 Yes [id number] 25mg Take 1 U nivers tartrate 25 2-15 tablet by ity of mg tablet 00:00: mouth (two) Medical times Branch daily. metoprolol 2020-04 Yes [id number] 25mg Take 1 U nivers tartrate 25 2-15 tablet by ity of mg tablet 00:00: mouth (two) Medical times Branch daily. metoprolol 2020-04 Yes [id number] 25mg Take 1 U nivers tartrate 25 2-15 tablet by ity of mg tablet 00:00: mouth (two) Medical times Branch daily. metoprolol 2020-04 Yes [id number] 25mg Take 1 U nivers tartrate 25 2-15 tablet by ity of mg tablet 00:00: mouth (two) Medical times Branch daily. metoprolol 2020-04 Yes [id number] 25mg Take 1 U nivers tartrate 25 2-15 tablet by ity of mg tablet 00:00: mouth (two) Medical times Branch daily. metoprolol 2020-04 Yes [id number] 25mg Take 1 U nivers tartrate 25 2-15 tablet by ity of mg tablet 00:00: mouth (two) Medical times Branch daily. metoprolol 2020-04 Yes [id number] 25mg Take 1 U nivers tartrate 25 2-15 tablet by ity of mg tablet 00:00: mouth (two) Medical times Branch daily. polyethylen 2020-04 Yes [id number] 17g Take 1 Univers e glycol 0-29 Packet by ity of 3350 17 00:00: mouth [place] gram powder 00 daily. Medica l Branch polyethylen 2020-04 Yes [id number] 17g Take 1 Univers e glycol 0-29 Packet by ity of 3350 17 00:00: mouth [place] gram powder 00 daily. Medica l Branch polyethylen 2020-04 Yes [id number] 17g Take 1 Univers e glycol 0-29 Packet by ity of 3350 17 00:00: mouth [place] gram powder 00 daily. Medica l Branch polyethylen 2020-04 Yes [id number] 17g Take 1 Univers e glycol 0-29 Packet by ity of 3350 17 00:00: mouth [place] gram powder 00 daily. Medica l Branch polyethylen 2020-04 Yes [id number] 17g Take 1 Univers e glycol 0-29 Packet by ity of 3350 17 00:00: mouth [place] gram powder 00 daily. Medica l Branch polyethylen 2020-04 Yes [id number] 17g Take 1 Univers e glycol 0-29 Packet by ity of 3350 17 00:00: mouth [place] gram powder 00 daily. Medica l Branch polyethylen 2020-04 Yes [id number] 17g Take 1 Univers e glycol 0-29 Packet by ity of 3350 17 00:00: mouth [place] gram powder 00 daily. Medica l Branch docusate 2020-04 Yes [id number] 100mg Take 1 U nivers 100 mg 0-28 capsule by ity of capsule 00:00: mouth 2 (two) Medical times Branch daily. docusate 2020-04 Yes [id number] 100mg Take 1 U nivers 100 mg 0-28 capsule by ity of capsule 00:00: mouth 2 (two) Medical times Branch daily. docusate 2020-04 Yes [id number] 100mg Take 1 U nivers 100 mg 0-28 capsule by ity of capsule 00:00: mouth 2 (two) Medical times Branch daily. docusate 2020-04 Yes [id number] 100mg Take 1 U nivers 100 mg 0-28 capsule by ity of capsule 00:00: mouth 2 (two) Medical times Branch daily. docusate 2020-04 Yes [id number] 100mg Take 1 U nivers 100 mg 0-28 capsule by ity of capsule 00:00: mouth 2 (two) Medical times Branch daily. docusate 2020-04 Yes [id number] 100mg Take 1 U nivers 100 mg 0-28 capsule by ity of capsule 00:00: mouth 2 (two) Medical times Branch daily. docusate 2020-04 Yes [id number] 100mg Take 1 U nivers 100 mg 0-28 capsule by ity of capsule 00:00: mouth 2 (two) Medical times Branch daily. warfarin 2 [...] ity of tablet 00:00: darion mouth at [place] [address] bedtime. Medical Branch zolpidem 10 Yes Univer s mg tablet 4-21 ity of 00:00: [place] [facility] gabapentin 2017-0 Yes Take by Univ ers 300 mg 4-21 mouth ity of capsule 00:00: daily. Medical Branch HYDROcodone 2017-0 Yes Univer s -acetaminop 4-21 ity of hen 10-325 00:00: [place] mg tablet 00 Medical Branch lidocaine 5 2016- Yes Univer s % (700 4-21 ity of mg/patch) 00:00: [place] patch Medical Branch gabapentin 2017-0 Yes Take by Univ ers 300 mg 4-21 mouth ity of capsule 00:00: daily. Medical Branch lidocaine 5 2017-0 Yes Univer s % (700 4-21 ity of mg/patch) 00:00: [place] patch Medical Branch gabapentin 2017-0 Yes Take by Univ ers 300 mg 4-21 mouth ity of capsule 00:00: daily. [place] [facility] lidocaine 5 2017-0 Yes Univer s % (700 4-21 ity of mg/patch) 00:00: [place] patch Medical Branch gabapentin 2017-0 Yes Take by Univ ers 300 mg 4-21 mouth ity of capsule 00:00: daily. [place] [facility] lidocaine 5 2017-0 Yes Univer s % (700 4-21 ity of mg/patch) 00:00: [place] patch Medical Branch gabapentin 2017-0 Yes Take by Univ ers 300 mg 4-21 mouth ity of capsule 00:00: daily. Medical Branch lidocaine 5 2017-0 Yes Univer s % (700 4-21 ity of mg/patch) 00:00: [place] patch 00 Medical Branch gabapentin 2017-0 Yes Take by Univ ers 300 mg 4-21 mouth ity of capsule 00:00: daily. Medical Branch lidocaine 5 2017-0 Yes Univer s % (700 4-21 ity of mg/patch) 00:00: [place] patch Medical Branch gabapentin 2017-0 Yes Take by Univ ers 300 mg 4-21 mouth ity of capsule 00:00: daily. Medical Branch lidocaine 5 2017-0 Yes Univer s % (700 4-21 ity of mg/patch) 00:00: [place] patch Medical Branch gabapentin 2017-0 Yes Take by Univ ers 300 mg 4-21 mouth ity of capsule 00:00: daily. Medical Branch lidocaine 5 2017-0 Yes Univer s % (700 4-21 ity of mg/patch) 00:00: [place] patch Medical Branch pantoprazol 2017-0 Yes Univer s e 40 mg EC 4-14 ity of tablet 00:00: [place] [facility] pantoprazol 2017-0 Yes Univer s e 40 mg EC 4-14 ity of tablet 00:00: [place] [facility] pantoprazol 2017-0 Yes Univer s e 40 mg EC 4-14 ity of tablet 00:00: Medical Branch pantoprazol 2017-0 Yes Univer s e 40 mg EC 4-14 ity of tablet 00:00: [place] [facility] pantoprazol 2017-0 Yes Univer s e 40 mg EC 4-14 ity of tablet 00:00: Medical Branch pantoprazol 2017-0 Yes Univer s e 40 mg EC 4-14 ity of tablet 00:00: [place] [facility] pantoprazol 2017-0 Yes Univer s e 40 mg EC 4-14 ity of tablet 00:00: [place] [facility] pantoprazol 2017-0 Yes Univer s e 40 mg EC 4-14 ity of tablet 00:00: [place] [facility] aspirin 81 2015- Yes 81mg Take 1 Unive rs mg chewable 0-26 tablet by ity of tablet 00:00: mouth daily. Medical Branch ferrous 2015-04 Yes 325mg [...] Immunizations Ordered Filled Immunization Date Status Comments [facility] Immunization Name Name Influenza Virus 2021-03-06 [...] Medica l Im,preserve Free Branch 65+ Procedures Procedure Date / Time Performed Performing Clinician Sour e ASSIGNMENT OF BENEFITS 2021-12-14 17:04:14 Doctor Unassigned, No [facility] HOSPITAL ADMISSION 2021-11-23 05:01:00 Doctor Unassigned, No Uni versity of [facility] Medical [place] Plan of Care Planned Activity Planned Date Details Comments Source Future Scheduled 2021-03-29 Depression screening Uni [facility] Test 00:00:00 (procedure) [code = Medical Branch 752599789] Future Scheduled 2020-12-14 INFLUENZA VACCINE [facility] Test 00:00:00 (Season Ended) [code = Medic al Branch INFLUENZA VACCINE (Season Ended)] Future Scheduled 2020-10-29 Screening for [facility] Test 00:00:00 malignant neoplasm of Medica l Branch breast (procedure) [code = 777659434] Future Scheduled 2018 Medicare Annual [facility] Test 00:00:00 Wellness Visit Medical Bran h (procedure) [code = 984419439819481] Future Scheduled 2018 Screening for [facility] Test 00:00:00 osteoporosis Medical Branch (procedure) [code = 905094134] Future Scheduled 2018 [facility]00 65+ (1 of 1 - PPSV23) Medica l Branch [code = PNEUMOCOCCAL VACCINES 65+ (1 of 1 - PPSV23)] Future Scheduled 2017-02-05 [facility]ening [facility]00 blood in feces Medical Bran h (procedure) [code = 354658392] Future Scheduled 2017-02-05 Screening for University [facility] Test 00:00:00 malignant neoplasm of Medica l Branch colon (procedure) [code = 166139901] Future Scheduled 2003 Stool DNA-based [facility] Test 00:00:00 colorectal cancer Medical Br anch screening (procedure) [code = 876543520431020] Future Scheduled 2003 Flexible fiberoptic [facility] 00:[facility]:00 sigmoidoscopy Medical Branch (procedure) [code = 99791638] Future Scheduled 2003 Screening for University [facility] Test 00:00:00 malignant neoplasm of Medica l Branch colon (procedure) [code = 467512968] Future Scheduled 2003 Zoster Recombinant Unive [facility] Test 00:00:00 Vaccine (SHINGRIX) (1 Medica l Branch of 2) [code = Zoster Recombinant Vaccine (SHINGRIX) (1 of 2)] Future Scheduled 1972 DTaP,Tdap,and Td [facility] Vaccines (1 - Tdap) Medical Branch [code = DTaP,Tdap,and Td Vaccines (1 - Tdap)] Future Scheduled 1971 [facility] (procedure) [code = Medical Branch 547483167] Future Scheduled 1969 [facility]COVID-19) [facility] Vaccine (1) [code = Medical Branch SARS-CoV-2 (COVID-19) Vaccine (1)] Encounters Start End Encounter Admission Attending Care Care Encounter Source Date/Time Date/Time Type Type Clinicians Facility Department ID 2021-09-21 Outpatient Dobson, [facility] [id number] Common 10:27:03 Saurabh [facility] 2022-02-28 2022-02-28 [facility] [id number] Univers 13:00:00 13:00:00 [place] ity o f [facility] 2021-12-15 2021-12-15 Telephone [facility] [id number] Univers 00:00:00 00:00:00 [place] ARANDA [id number] ity of [place] [id number] Jose Elias REYES [phone] [address] 2021-12-15 2021-12-15 Telephone [facility] [id number] Univers 00:00:00 00:00:00 [place] ARANDA [id number] [facility] [id number] [id number] Md dical NAL 059 [facility] 2021-12-15 2021-12-15 [facility] [id number] Univers 00:00:00 00:00:00 [place] ARANDA [id number] ity [facility] [id number] [phone] Md dical NAL 059 [facility] 2021-12-14 2021-12-14 Insurance Office Manager Farnaz, Adc Lab Main [facility] [id number] Univers 12:30:00 12:45:00 Visit [place] Pompa [id number] ity of [place] [id number] [phone] Md dical NAL 353 [facility] 2021-12-14 2021-12-14 Outpatient R [facility] [id number] Univers 12:30:00 12:30:[id number] [facility] 2021-12-14 2021-12-14 [facility] [id number] Univers 12:30:00 12:30:00 [place] perez o [facility] 2021-12-14 2021-12-14 Orders Doctor JOHANN [id number] Univers 00:00:00 00:00:00 Only Unassigned, MIKE [id number] [facility] [id number] Babak as [phone] [address] 2021-12-04 2021-12-04 Outpatient [facility] [id number] Univers 14:15:00 14:15:00 [place] perez o f [facility] 2021-12-04 2021-12-04 Telephone [facility] [id number] Univers 00:00:00 00:00:00 [place] ARANDA [id number] ity [facility] [id number] [phone] Md dical [facility] 059 [facility] 2021-11-23 2021-11-23 Orders Doctor JOHANN [id number] Univers 00:00:00 00:00:00 Only Unassigned, MIKE [id number] ity of [place] [facility] [id number] Babak as [phone] [address] 2021-02-27 2021-02-27 Outpatient R [facility] [id number] [facility] 11:20:00 11:44:55 [place] ity o f [facility] 2020-08-08 2020-08-08 Insurance Office Manager Farnaz, [facility] [id number] 11:14:44 11:29:44 Visit Lab Main [place] [id number] [place] [id number] Professio [phone] [address] 2020-08-08 2020-08-08 Orders Doctor JOHANN [id number] 00:00:00 00:00:00 Only Unassigned, MIKE [id number] [place] [facility] [id number] [facility] 2020-08-08 2020-08-08 [facility] [id number] 00:00:00 00:00:00 [place] Berkley [id number] [place] [id number] Professio [phone] [address] 2020-07-25 2020-07-25 Telephone [facility] [id number] 00:00:00 00:00:00 [place] Berkley [id number] [place] [id number] Professio [phone] [address] 2020-07-20 2020-07-20 Insurance Office Manager Farnaz, [facility] [id number] 10:37:03 10:52:03 Visit Lab Main [place] [id number] [place] [id number] Professio [phone] [address] 2020-07-20 2020-07-20 Orders Doctor JOHANN [id number] 00:00:00 00:00:00 Only Unassigned, MIKE [id number] [place] [facility] [id number] 2020-07-20 2020-07-20 Telephone [facility], [facility] [id number] 00:00:00 00:00:00 [place] [id number] [place] [id number] Professio [phone] [address] 2020-07-13 2020-07-13 Insurance Office Manager Farnaz, [facility] [id number] 09:23:20 09:38:20 Visit Lab Main [place] [id number] [place] [id number] Professio [phone] [address] 2020-07-13 2020-07-13 Telephone [facility], [facility] [id number] 00:00:00 00:00:00 [place] [id number] [place] [id number] Professio [phone] [address] 2020-06-19 2020-06-19 Telephone [facility], [facility] [id number] 00:00:00 00:00:00 [place] [id number] [place] [id number] Professio [phone] [address] 2020-06-17 2020-06-17 Insurance Office Manager Farnaz, [facility] [id number] 09:22:55 09:37:55 Visit Lab Main [place] [id number] [place] [id number] Professio [phone] [address] 2020-06-08 2020-06-08 Telephone [facility], [facility] [id number] 00:00:00 00:00:00 Qiangjun [place] [id number] [place] [id number] Professio [phone] [address] 2020-06-07 2020-06-07 Insurance Office Manager Farnaz, [facility] [id number] 08:57:47 09:12:47 Visit Lab Main [place] [id number] [place] [id number] Professio [phone] [address] 2020-05-16 2020-05-16 Insurance Office Manager Farnaz, [facility] [id number] 11:09:17 11:24:17 Visit Lab Main [place] [id number] [place] [id number] Professio [phone] [address] 2020-05-16 2020-05-16 Orders Doctor JOHANN [id number] 00:00:00 00:00:00 Only Unassigned, MIKE [id number] [place] [facility] [id number] [phone] [facility] 2020-05-16 2020-05-16 Telephone [facility] [id number] 00:00:00 00:00:00 [place] [id number] [place] [id number] Professio [phone] [address] 2020-05-11 2020-05-11 [facility] [id number] 09:25:07 09:40:07 Visit Lab Main [place] [id number] [place] [id number] Professio [phone] [address] 2020-05-11 2020-05-11 Telephone [facility] [id number] 00:00:00 00:00:00 Catrinamerzaheer [place] [id number] [place] [id number] Professio [phone] [address] 2020-05-11 2020-05-11 Telephone [facility] [id number] 00:00:00 00:00:00 Catrinafallon [place] [id number] [place] [id number] Professio [phone] [facility], [facility]–1983 059 [facility] 2020-05-04 2020-05-04 Telephone [facility] [id number] 00:00:00 00:00:00 Catrinamerzaheer [place] [id number] [place] [id number] Professio [phone] [address] 2020-05-03 2020-05-03 Insurance Office Manager Farnaz [facility] [id number] 10:05:00 10:20:00 Visit Lab Main [place] [id number] [place] [id number] Professio [phone] [address] 2020-05-03 2020-05-03 Orders Doctor JOHANN [id number] 00:00:00 00:00:00 Only Unassigned, MIKE [id number] [place] [facility] [id number] [phone] [facility] 2020-04-27 2020-04-27 Insurance Office Manager Farnaz [facility] [id number] 08:24:03 08:39:03 Visit Lab Main [place] [id number] [place] [id number] Professio [phone] [address] 2020-04-27 2020-04-27 [facility] [id number] 00:00:00 00:00:00 Catrinamerzaheer [place] [id number] [place] [id number] Professio [phone] [address] 2020-04-20 2020-04-20 Refill [facility] [id number] 00:00:00 00:00:00 Rogerzaheer [place] [id number] [place] [id number] Professio [phone] [facility] 2020-03-29 2020-03-29 [facility] [id number] 14:32:40 15:25:41 Visit [place] Aranda [id number] [place] [id number] [facility] [phone] [facility] Results This patient has no known results.
[2021-12-24] MEDS ORDERED: ASPIRIN 81 MG CHEWABLE TABLET ONE (21:38)
--- NOTE | 2021-12-24 21:52 | RAD REPORT ---
EXAM DESCRIPTION: RAD - Chest Single View - 12/24/2021 9:44 pm CLINICAL HISTORY: CHEST PAIN Chest pain. COMPARISON: Chest Single View dated 10/09/2021; Chest Single View dated 09/29/2021; Chest Single View dated 05/29/2021; Chest Single View dated 02/25/2021 FINDINGS: Portable technique limits examination quality. The lungs are grossly clear. The heart is moderately enlarged. No displaced fractures.Sternotomy wire s. IMPRESSION: No acute intrathoracic process suspected.
[2021-12-24 21:55] LABS: Absolute Lymphocytes (CBC) 1.2 K/uL (0.7-4.9); Hematocrit 24.6 % (36.0-45.0); Lymphocytes % 23.8 % (15.3-44.8); MCV 88.6 fL (80-100); MPV 8.7 fL (7.6-11.3); RBC Red Blood Cell Count 2.78 M/uL (3.86-4.86)
[2021-12-24 22:19] LABS: Protime INR 2.91
[2021-12-24 22:22] LABS: Magnesium 1.8 mg/dL (1.8-2.4); Potassium 3.1 mmol/L (3.5-5.1); Troponin High Sensitivity 10.6 pg/mL (<58.9)
[2021-12-24] MEDS ORDERED: HYDROMORPHONE HCL 0.5 MG/0.5 ML INJ ONE (22:47)
--- NOTE | 2021-12-24 22:54 | ER ---
Nurse's Notes [facility] Name: Michelle Saavedra Age: 66 yrs Sex: Female : 1955 Arrival Date: 12/24/2021 Time: 20:53 Bed 2 Private MD: Diagnosis: Chest pain, unspecified;Anemia, unspecified;Tachycardia, unspecified Presentation: 12/24 20:58 Chief complaint: Patient states: my chest has been hurting since yesterday. also, I ha1 feel dizzy, nausea, and shortness of breath. Coronavirus screen: Vaccine status: Patient reports being unvaccinated. Ebola Screen: No symptoms or risks identified at this time. Initial Sepsis Screen: Does the patient meet any 2 criteria? No. Patient's initial sepsis screen is negative. Does the patient have a suspected source of infection? No. Patient's initial sepsis screen is negative. Risk Assessment: Do you want to hurt yourself or someone else? Patient reports no desire to harm self or others. Onset of symptoms was December 23, 2021. 20:58 Method Of Arrival: Wheelchair ha1 20:58 Acuity: JAKUB 3 ha1 Triage Assessment: 21:02 General: Appears in no apparent distress. Behavior is calm, cooperative. Pain: ha1 Complains of pain in chest Pain began 1 day ago. Neuro: Level of Consciousness is awake, alert, obeys commands, Oriented to person, place, time, situation, Speech is normal. Cardiovascular: Patient's skin is warm and dry. Rhythm is atrial flutter. Respiratory: Airway is patent Trachea midline Respiratory effort is even, unlabored, Respiratory pattern is regular, symmetrical. Historical: - Allergies: 21:02 Morphine; ha1 - Immunization history:: Adult Immunizations up to date. - Social history:: Smoking status: Patient denies any tobacco usage or history of. Screenin:13 Abuse screen: Denies threats or abuse. Denies injuries from another. Nutritional aa9 screening: No deficits noted. Tuberculosis screening: No symptoms or risk factors identified. Fall Risk None identified. Assessment: 21:45 General: Appears ill, slender, Behavior is cooperative, quiet. Neuro: Level of aa9 Consciousness is awake, alert, obeys commands, Oriented to person, place, time, situation. Respiratory: Airway is patent Trachea midline Respiratory effort is even, unlabored, Respiratory pattern is regular, symmetrical. 23:58 Pain: Pain does not radiate. aa9 Vital Signs: 20:58 BP 145 / 70; Pulse 122; Resp 18; Temp 98.5; Pulse Ox 98% on R/A; Weight 45.36 kg; ha1 Height 5 ft. 3 in. (160.02 cm); Pain 9/10; 21:30 BP 128 / 85; Pulse 119; Resp 20 S; Pulse Ox 99% on R/A; aa9 22:12 BP 116 / 67; Pulse 109; Pulse Ox 98% on R/A; aa9 23:54 BP 126 / 51; Pulse 59; Resp 16 S; Pulse Ox 99% on R/A; aa9 20:58 Body Mass Index 17.71 (45.36 kg, 160.02 cm) ha1 ED Course: 20:53 Patient arrived in ED. ag3 20:57 Jesus Alberto Edwards DO is Attending Physician. ms3 21:02 Triage completed. ha1 21:02 Arm band placed on left wrist. ha1 21:08 Lexx Santoro, RN is Primary Nurse. as6 21:35 Inserted saline lock: 20 gauge in left antecubital area, using aseptic technique. Blood aa9 collected. 21:44 Client placed on continuous cardiac and pulse oximetry monitoring. NIBP monitoring aa9 applied. 21:45 Basic Metabolic Panel Sent. aa9 21:45 CBC with Diff Sent. aa9 21:45 Magnesium Sent. aa9 21:45 Troponin HS Sent. aa9 21:45 PT-INR Sent. aa9 22:13 Patient has correct armband on for positive identification. Bed in low position. Call aa9 light in reach. Side rails up X2. 22:44 Door closed. Lights dimmed. Warm blanket given. aa9 22:51 Torres Arvizu is Hospitalizing Provider. ms3 23:58 No provider procedures requiring assistance completed. Patient maintains SpO2 aa9 saturation greater than 95% on room air. 23:58 Patient admitted, IV remains in place. aa9 12/25 00:44 RAD In Process Unspecified. EDMS Administered Medications: 12/24 21:45 Drug: Aspirin Chewable Tablet 324 mg Route: PO; aa9 22:42 Follow up: Response: No adverse reaction aa9 22:42 Drug: Dilaudid (HYDROmorphone) 0.5 mg Route: IVP; Site: left antecubital; aa9 23:50 Follow up: Response: No adverse reaction; RASS: Alert and Calm (0) aa9 Medication: 23:58 VIS not applicable for this client. aa9 Outcome: 22:54 Decision to Hospitalize by Provider. ms3 12/25 00:10 Admitted to Tele accompanied by nurse, via wheelchair, room 425, with chart, Report aa9 called to Hiral RN Condition: stable Instructed on the need for admit. 00:42 Patient left the ED. as6 Signatures: Dispatcher [employer] EDMS Fior Patel ag3 Jesus Alberto Edwards DO DO ms3 Lexx Santoor RN RN as6 Mariama Horan RN RN aa9 Lizzie Main RN RN ha1 Corrections: (The following items were deleted from the chart) 12/24 21:03 21:02 PMHx: Atrial Fib; ha1 ha1 21:03 21:02 PMHx: Hypertension; ha1 ha1 21:03 21:02 PMHx: GERD; ha1 ha1 21:03 21:02 PMHx: mechanical heart valve; ha1 ha1 21:03 21:02 PMHx: Back pain; ha1 ha1 21:03 21:02 PMHx: Hyperlipidemia; ha1 ha1 21:03 21:02 PSHx: Aortic valve replacement; ha1 ha1 21:50 21:49 BP 128 / 85; Pulse 119bpm; Resp 20bpm; Spontaneous; Pulse Ox 99% RA; aa9 aa9
--- NOTE | 2021-12-24 22:54 | EDPHYS ---
Physician Documentation [facility] Name: Michelle Saavedra Age: 66 yrs Sex: Female : 1955 Arrival Date: 12/24/2021 Time: 20:53 Bed 2 Private MD: ED Physician Jesus Alberto Edwards HPI: 12/24 21:02 This 66 yrs old Female presents to ER via Unassigned with complaints of Chest ms3 Pain. 21:02 58-year-old female with past medical history of aortic valve replacement presents for ms3 chest pain that began last night. Patient rates her pain a 9/10 and describes it as sharp. Patient endorses dizziness, nausea, shortness of breath. Patient denies sweats. Patient denies alleviating or inciting factors. Patient states she is on Coumadin.. Historical: - Allergies: 21:02 Morphine; ha1 - Immunization history:: Adult Immunizations up to date. - Social history:: Smoking status: Patient denies any tobacco usage or history of. ROS: 21:02 Constitutional: Negative for fever, and chills. Neck: Negative for injury, pain, and ms3 swelling. 21:02 Abdomen/GI: Negative for abdominal pain, nausea, vomiting, diarrhea, and constipation, Skin: Negative for injury, rash, and discoloration, Neuro: Negative for headache, weakness, numbness, tingling. 21:02 Cardiovascular: Positive for chest pain. 21:02 Respiratory: Positive for shortness of breath. 21:02 All other systems are negative. Exam: 21:01 ECG was reviewed by the Attending Physician. ms3 21:02 Constitutional: This is a well developed, well nourished patient who is awake, alert, ms3 and in no acute distress. Eyes: Pupils equal round and reactive to light, extra-ocular motions intact. Lids and lashes normal. Conjunctiva and sclera are non-icteric and not injected. Periorbital areas with no swelling, redness, or edema. Neck: Trachea midline, no cervical lymphadenopathy. Supple, full range of motion without nuchal rigidity, or vertebral point tenderness. No Meningismus. Chest/axilla: Normal chest wall appearance and motion. Nontender with no deformity. Cardiovascular: Regular rate and rhythm with a normal S1 and S2. No gallops, murmurs, or rubs. Normal PMI, no JVD. No pulse deficits. Respiratory: Lungs have equal breath sounds bilaterally, clear to auscultation and percussion. No rales, rhonchi or wheezes noted. No increased work of breathing, no retractions or nasal flaring. Abdomen/GI: Soft, non-tender, with normal bowel sounds. No distension or tympany. No guarding or rebound. No evidence of tenderness throughout. Skin: Warm, dry with normal turgor. Normal color with no rashes, no lesions, and no evidence of cellulitis. MS/ Extremity: Pulses equal, no cyanosis. Neurovascular intact. Full, normal range of motion. Psych: Awake, alert, with orientation to person, place and time. Behavior, mood, and affect are within normal limits. Vital Signs: 20:58 BP 145 / 70; Pulse 122; Resp 18; Temp 98.5; Pulse Ox 98% on R/A; Weight 45.36 kg; ha1 Height 5 ft. 3 in. (160.02 cm); Pain 9/10; 21:30 BP 128 / 85; Pulse 119; Resp 20 S; Pulse Ox 99% on R/A; aa9 22:12 BP 116 / 67; Pulse 109; Pulse Ox 98% on R/A; aa9 23:54 BP 126 / 51; Pulse 59; Resp 16 S; Pulse Ox 99% on R/A; aa9 20:58 Body Mass Index 17.71 (45.36 kg, 160.02 cm) ha1 MDM: 21:01 Patient medically screened. ms3 21:02 Differential diagnosis: abnormal EKG, acute myocardial infarction, coronary artery ms3 disease stable angina. 23:10 HEART Score: History: Slightly Suspicious (0), ECG: Normal (0), Age: > or = 65 years ms3 (2), Risk Factors: 1 or 2 risk factors (1), Troponin: < or = 1 x Normal Limit (0), Total Score = 3. The patient was given aspirin in the Emergency Department. Data reviewed: vital signs, nurses notes, lab test result(s), EKG, radiologic studies, and as a result, I will admit patient. Data interpreted: satellite project site monitor: rate is 58 beats/min, rhythm is normal sinus rhythm, regular, with no ectopy, Interpretation: normal rate, normal rhythm. Counseling: I had a detailed discussion with the patient and/or guardian regarding: the historical points, exam findings, and any diagnostic results supporting the discharge/admit diagnosis, lab results, radiology results, the need for further work-up and treatment in the hospital. ED course: Discussed plan for observation with patient. Patient stands agrees with plan. Discussed case with Camryn Shields PA-C, and she accepts patient on behalf of Dr. Arvizu.. 12/24 20:57 Order name: Basic Metabolic Panel ms3 12/24 20:57 Order name: CBC with Diff ms3 12/24 20:57 Order name: Magnesium ms3 12/24 20:57 Order name: Troponin HS ms3 12/24 21:02 Order name: PT-INR ms3 12/24 22:03 Order name: CBC with Automated Diff EDMS 12/24 20:57 Order name: XRAY Chest (1 view) ms3 12/24 21:53 Order name: RAD EDMS 12/24 22:19 Order name: Protime (+INR) EDMS 12/24 22:22 Order name: Basic Metabolic Panel EDMS 12/24 22:22 Order name: Troponin High Sensitivity EDMS 12/24 22:22 Order name: Magnesium EDMS 12/24 22:47 Order name: SARS RAPID mw2 12/24 23:26 Order name: SARS-COV-2 Antigen Rapid EDMS 12/24 20:57 Order name: EKG; Complete Time: 20:58 ms3 12/24 20:57 Order name: Cardiac monitoring; Complete Time: 21:45 ms3 12/24 20:57 Order name: EKG - Nurse/Tech; Complete Time: 21:12 ms3 12/24 20:57 Order name: IV Saline Lock; Complete Time: 21:45 ms3 12/24 20:57 Order name: Labs collected and sent; Complete Time: 21:45 ms3 12/24 20:57 Order name: O2 Per Protocol; Complete Time: 21:45 ms3 12/24 20:57 Order name: O2 Sat Monitoring; Complete Time: 21:50 ms3 EC:01 Rate is 109 beats/min. Rhythm is irregularly irregular. QRS [place] is Normal. QT interval ms3 is normal. Clinical impression: Atrial Flutter. Interpreted by me. Reviewed by me. Administered Medications: 21:45 Drug: Aspirin Chewable Tablet 324 mg Route: PO; aa9 22:42 Follow up: Response: No adverse reaction aa9 22:42 Drug: Dilaudid (HYDROmorphone) 0.5 mg Route: IVP; Site: left antecubital; aa9 23:50 Follow up: Response: No adverse reaction; RASS: Alert and Calm (0) aa9 Disposition Summary: 12/24/21 22:54 Hospitalization Ordered Hospitalization Status: Observation ms3 Provider: Torres Arvizu ms3 Location: Telemetry/MedSurg (observation) ms3 Condition: Stable ms3 Problem: new ms3 Symptoms: are unchanged ms3 Bed/Room Type: Standard ms3 Room Assignment: 425(12/24/21 23:44) mw Diagnosis - Chest pain, unspecified ms3 - Anemia, unspecified ms3 - Tachycardia, unspecified ms3 Forms: - Medication Reconciliation Form ms3 - SBAR form ms3 Signatures: Dispatcher [employer] EDMS Albertina Watkins RN RN Jesus Alberto Edwards DO DO ms3 Lucila Shields PA PA sb3 Mariama Horan RN RN aa9 Lizzie Main RN RN ha1 Corrections: (The following items were deleted from the chart) 21:03 21:02 PMHx: Atrial Fib; ha1 ha1 21:03 21:02 PMHx: Hypertension; ha1 ha1 21:03 21:02 PMHx: GERD; ha1 ha1 21:03 21:02 PMHx: mechanical heart valve; ha1 ha1 21:03 21:02 PMHx: Back pain; ha1 ha1 21:03 21:02 PMHx: Hyperlipidemia; ha1 ha1 21:03 21:02 PSHx: Aortic valve replacement; ha1 ha1 23:44 22:54 ms3 mw
[2021-12-24 23:25] LABS: SARS-CoV-2 Antigen Rapid Res Negative (Negative)
--- NOTE | 2021-12-24 23:57 | P.HP ---
Certification for Inpatient Patient admitted to: Observation With expected LOS: <2 Midnights Patient will require the following post-hospital care: None Practitioner: I am a practitioner with admitting privileges, knowledge of patient current condition, hospital course, and medical plan of care. Services: Services provided to patient in accordance with Admission requirements found in Title 42 Section 412.3 of the Code of Federal Regulations Patient History Date of Service: 12/25/21 Primary Care Provider: Olya Reason for admission: Chest Pain History of Present Illness: Patient is a 66-year-old female with history of mechanical aortic valve on Warfarin, atrial fibrillation, chronic diastolic heart failure, hypertension, h yperlipidemia, GERD and chronic pain who presented to the emergency department with complaints of chest pain. She reports her chest pain began last night and was severe but she did not come in because her BP and HR were okay. She denies any changes in medications. EKG shows afib. Labs significant for hgb 7.9, hct 24.9, PT 32, INR 2.9, potassium 3.1, trop 10. Chest xray negative for acute processes. She was given 324 mg aspirin and dilaudid in ED. Her pain persists. ED provider wishes to admit patient for observation. Allergies morphine Allergy (Intermediate, Verified 05/30/21 00:39) panic ATTACK; shaking fentanyl Allergy (Verified 05/30/21 00:39) Itching Home medications list reviewed: Yes Home Medications: Atorvastatin Calcium [Lipitor*] 80 mg PO DAILY 01/25/21 Gabapentin 300 mg PO BID 01/25/21 Pantoprazole [Protonix Tab*] 40 mg PO BID 01/25/21 Metoprolol Tartrate [Lopressor*] 12.5 mg PO BID 6AM 6PM #60 tab 01/29/21 Hydrocodone Bit/Acetaminophen [[place] 7.5-325 Tablet] 1 tab PO TID PRN 09/29/21 Warfarin Sodium [Coumadin*] 2 mg PO DAILY #30 tab 09/29/21 Zolpidem Tartrate [Ambien] 1 tab PO BEDTIME 09/29/21 Amiodarone HCl [Cordarone*] 1 tab PO SEECOM #50 tab 10/09/21 Amoxicillin/Potassium Clav [Augmentin 500-125 Tablet] 1 each PO BID 10 Days #20 tablet 10/09/21 - Past Medical/Surgical History Diabetic: No -: Atrial fibrillation on warfarin -: depression -: HTN -: Chronic diastolic congestive heart failure -: GERD -: mechanical aortic valve -: palpitations -: aortic valve replacement -: cardioversion -: tubal ligation Psychosocial/ Personal History: Patient lives at home with her children - Family History Brother -: Heart disease, Cancer Notes: heart attack Mother -: Heart disease, Diabetes Notes: of heart attack Father -: Heart disease Notes: of heart attack Sister -: Heart disease, Diabetes, Cancer Notes: sisters x2 - DM. sister x1 - heart attack. sister- lung cancer - Social History Smoking Status: Never smoker Alcohol use: No CD- Drugs: No Caffeine use: No Place of Residence: Home Review of Systems Respiratory: Shortness of Breath Cardiovascular: Chest Pain Gastrointestinal: Nausea Neurological: Other (Dizziness) Physical Examination - Physical Exam General: Alert, In no apparent distress HEENT: Atraumatic, PERRLA, EOMI, Sclerae nonicteric Neck: Supple, 2+ carotid pulse no bruit, No LAD, Without JVD or thyroid abnormality Respiratory: Clear to auscultation bilaterally, Normal air movement Cardiovascular: Regular rate/rhythm, Normal S1 S2 Gastrointestinal: Normal bowel sounds, No tenderness Musculoskeletal: No tenderness Integumentary: No rashes Neurological: Normal speech, Normal strength at 5/5 x4 extr, Normal tone, Normal affect - Studies Laboratory Data (last 24 hrs) 12/24/21 21:38: PT 32.7 H, INR 2.91 12/24/21 21:38: WBC 4.90, Hgb 7.9 L, Hct 24.6 L, Plt Count 227 12/24/21 21:38: Sodium 143, Potassium 3.1 L, BUN 7, Creatinine 1.28, Glucose 100, Magnesium 1.8 Assessment and Plan - Problems (Diagnosis) (1) Chest pain Current Visit: Yes Status: Acute Qualifiers: Chest pain type: unspecified Qualified Code(s): R07.9 - Chest pain, unspecified (2) Hypokalemia Current Visit: Yes Status: Acute (3) Anemia of chronic disease Current Visit: Yes Status: Chronic (4) CHF (congestive heart failure) Current Visit: Yes Status: Chronic Qualifiers: Heart failure type: diastolic Heart failure chronicity: chronic Qualified Code(s): I50.32 - Chronic diastolic (congestive) heart failure (5) Chronic atrial fibrillation Current Visit: Yes Status: Chronic (6) H/O aortic valve repair Current Visit: Yes Status: Chronic (7) HLD (hyperlipidemia) Current Visit: Yes Status: Chronic Qualifiers: Hyperlipidemia type: unspecified Qualified Code(s): E78.5 - Hyperlipidemia, unspecified (8) HTN (hypertension) Current Visit: Yes Status: Chronic Qualifiers: Hypertension type: primary hypertension Qualified Code(s): I10 - Essential (primary) hypertension (9) On warfarin therapy Current Visit: Yes Status: Chronic - Plan -Cardiology consult. Per chart review, patient was supposed to have a stress test but patient refusing. -INR currently therapeutic. Continue warfarin. -Initial troponin negative, will trend. Monitor on telemetry. -Echo in 2020 showed afib, normal left ventricular size and function. no thrombus. left atrial enlargement. mild tricuspid regurgitation -Hgb is 7.9 (11.8 2.5 months ago). Patient denies any melena or hematemesis. Will need GI follow up. -Lipid panel and TSH ordered for morning. -Continue daily aspirin and atorvastatin. -Reconcile and continue home medications -Warfarin for VTE ppx -Full code Discharge Plan: Home Plan to discharge in: 24 Hours - Advance Directives Does patient have a Living Will: No Does patient have a Durable POA for Healthcare: No - Code Status/Comfort Care Code Status Assessed: Yes (Full) Critical Care: No Time Spent Managing Pts Care (In Minutes): 50
[2021-12-25] MEDS ORDERED: ACETAMINOPHEN 500 MG TAB PO PRN (01:14)
[2021-12-25] MEDS ORDERED: ONDANSETRON 4 MG/2 ML VIAL IV PRN (01:14)
[2021-12-25 01:16] VITALS: BMI 18.2
[2021-12-25] MEDS: HYDROMORPHONE HCL 0.5 MG/0.5 ML INJ IV PRN ×4 (02:43→15:00)
[2021-12-25 03:45] LABS: Absolute Lymphocytes (CBC) 1.3 K/uL (0.7-4.9); Hematocrit 22.2 % (36.0-45.0); Lymphocytes % 28.6 % (15.3-44.8); MCV 89.1 fL (80-100); MPV 8.7 fL (7.6-11.3)
[2021-12-25 04:07] VITALS: O2SAT 99
[2021-12-25 04:13] LABS: Magnesium 1.6 mg/dL (1.8-2.4); Phosphorus 3.6 mg/dL (2.5-4.9); Potassium 3.2 mmol/L (3.5-5.1)
[2021-12-25 04:15] LABS: Thyroid Stimulating Hormone 3.78 uIU/mL (0.360-3.740)
[2021-12-25] MEDS ORDERED: MAGNESIUM SULFATE 1 gm IVPB 1 GM/100 ML BAG IV ONE (07:00)
[2021-12-25] MEDS ORDERED: POTASSIUM CL SA 10 MEQ TAB PO ONE (07:00)
--- NOTE | 2021-12-25 07:12 | CON ---
Date of Consultation: 12/25/2021 Reason For Consultation: Chest pain. History Of Present Illness: Ms. Saavedra is 66. She is known to us from previous office visits and ad missions. She has a history of aortic valve replacement that is mechanical for which she takes Couma din. At that time, she had aortic valve replacement, her heart catheterization showed normal coronar ies. She has also had an echocardiogram within this year that was normal. She has a history of dysl ipidemia, gastroesophageal reflux disease, hypertension, neuropathy, and atrial fibrillation. The visit she was here, she was placed on amiodarone and has been in sinus rhythm since. She came in with left-sided lateral chest pain that is severe, stabbing, nonexertional, nonradiating without any nausea, vomiting, diaphoresis, PND, orthopnea, pedal edema, palpitation, or syncope. She has had occ asional rapid heartbeat and occasional hypertension. Past Medical History: As stated above. Allergies: SHE IS ALLERGIC TO MORPHINE AND FENTANYL. Review of Systems: Negative. Social History: Negative. Family History: Noncontributory. Medications: At home include Coumadin, amiodarone, Lipitor, Protonix, metoprolol, and Neurontin. Physical Examination: Vital Signs: Stable. She is in sinus rhythm. She is afebrile. HEENT: Negative. Neck: Supple with no bruit. Chest: Clear. Cardiac: Revealed a crisp aortic valve sound. Regular rhythm and rate. No murmurs, gallops, or rub s. Abdomen: Benign. Extremities: Revealed no clubbing, cyanosis, or edema. Skin: Dry and intact. Neurologic: She was nonfocal. Pulses were present distally bilaterally. Diagnostic Data: Her EKG is nonspecific. Chest x-ray is negative. Her INR is 2.91. Potassium is 3 .2. Her hemoglobin is 7.1. Impression And Plan: 1.Atypical chest pain, noncardiac, pleuritic. 2.Severe anemia, needs to be addressed. She may need to have some transfusion. 3.Hypokalemia, needs to be supplemented. 4.Atrial fibrillation, in sinus rhythm, on amiodarone and Coumadin. I would continue that. She has adequate INR. She can certainly take another amiodarone if she has tachycardia as an outpatient. H er other issues include dyslipidemia, hypertension, neuropathy, gastroesophageal reflux disease all t hese are stable. Again for now, I would focus on her anemia and her hypokalemia, consider blood schroeder sfusion, consider a stress test sometime down the road as an outpatient. PANCHITO/DANE Voice ID: [id number] Report ID: [id number]
[2021-12-25] MEDS ORDERED: NA CHLORIDE 0.9% 250 ML IV SCH (08:00)
[2021-12-25] MEDS ORDERED: ASPIRIN EC 81 MG TAB PO SCH (09:00)
[2021-12-25] MEDS ORDERED: NA CHLORIDE 0.9% 250 ML ONE (10:56)
--- NOTE | 2021-12-25 15:07 | EKG ---
Test Date: 2021-12-24 Test Time: 20:58:33 Infant Lead Teacher: EN[employer] MEASUREMENT RESULTS: Intervals: Rate: 120 AK: QRSD: 100 QT: 356 QTc: 503 Harris: P: AK: QRS: 70 T: -68 INTERPRETIVE STATEMENTS: Atrial fibrillation with rapid ventricular response ST & T wave abnormality, consider inferolateral ischemia Abnormal ECG Compared to ECG 10/09/2021 01:30:50 Possible ischemia now present ST (T wave) deviation still present Electronically Signed On 12-25-21 15:06:29 CDT by Jam Bolanos
[2021-12-25 16:30] VITALS: BP 125/55; TEMP 97.4
--- NOTE | 2021-12-25 16:55 | P.DS ---
Admission Date: 12/24/21 Discharge Date: 12/25/21 Primary Care Provider: Olya Disposition: ROUTINE DISCHARGE Discharge Condition: FAIR Reason for Admission: Chest Pain - Problems (1) Chest pain Current Visit: Yes Status: Acute Qualifiers: Chest pain type: unspecified Qualified Code(s): R07.9 - Chest pain, unspecified (2) Anemia of chronic disease Current Visit: Yes Status: Chronic (3) Chronic atrial fibrillation Current Visit: Yes Status: Chronic (4) Mechanical heart valve present Current Visit: No Status: Chronic Brief History of Present Illness: Patient is a 66-year-old female with history of mechanical aortic valve on Warfarin, atrial fibrillation, chronic diastolic heart failure, hypertension, hyperlipidemia, GERD and chronic pain who presented to the emergency department with complaints of chest pain. She reports her chest pain began last night and was severe but she did not come in because her BP and HR were okay. She denies any changes in medications. EKG shows afib. Labs significant for hgb 7.9, hct 24.9, PT 32, INR 2.9, potassium 3.1, trop 10. Chest xray negative for acute processes. She was given 324 mg aspirin and dilaudid in ED. Her pain persists. Patient hospitalized for further management. Hospital Course: Patient placed under observation on the medical floor. Troponin was negative. Please seen and evaluated by cardiology. Patient's chest pain considered to be musculoskeletal and reproducible by palpation. Cardiology recommended blood transfusion. Patient transfused 1 unit PRBC. Hb increased from 7.1 to 8.7. Coumadin for mechanical aortic valve anticoagulation. No active GI bleed. Cause of anemia is unknown and patient will need GI work-up. Dr. Gonzalez contacted to follow-up patient in the office for further evaluation. Her INR was therapeutic. Same dose Coumadin resumed on discharge. Vital Signs/Physical Exam: Temp Pulse Resp BP Pulse Ox 97.4 F 58 16 125/55 L 97 12/25/21 16:00 12/25/21 16:00 12/25/21 16:00 12/25/21 16:00 12/25/21 16:00 General: Alert, In no apparent distress, Oriented x3 HEENT: Mucous membr. moist/pink Neck: Supple, JVD not distended Respiratory: Clear to auscultation bilaterally, Normal air movement Cardiovascular: No edema, Regular rate/rhythm, Normal S1 S2 Gastrointestinal: Soft and benign, Non-distended, No tenderness Musculoskeletal: No swelling Integumentary: No rashes, No cyanosis Neurological: Normal strength at 5/5 x4 extr Laboratory Data at Discharge: WBC 4.50 K/uL (4.3-10.9) 12/25/21 03:11 Hgb 8.7 g/dL (12.0-15.0) L 12/25/21 15:37 Hct 27.0 % (36.0-45.0) L D 12/25/21 15:37 Plt Count 196 K/uL (152-406) 12/25/21 03:11 PT 32.7 SECONDS (9.5-12.5) H 12/24/21 21:38 INR 2.91 12/24/21 21:38 Sodium 143 mmol/L (136-145) 12/25/21 03:11 Potassium 3.8 mmol/L (3.5-5.1) 12/25/21 15:37 BUN 9 mg/dL (7-18) 12/25/21 03:11 Creatinine 1.04 mg/dL (0.55-1.3) 12/25/21 03:11 Glucose 103 mg/dL (74-106) 12/25/21 03:11 Phosphorus 3.6 mg/dL (2.5-4.9) 12/25/21 03:11 Magnesium 1.6 mg/dL (1.8-2.4) L 12/25/21 03:11 Triglycerides 79 mg/dL (<150) 12/25/21 03:11 Cholesterol 118 mg/dL (<200) 12/25/21 03:11 HDL Cholesterol 60 mg/dL (40-60) 12/25/21 03:11 Cholesterol/HDL Ratio 1.97 12/25/21 03:11 Home Medications: Alendronate Sodium 70 mg PO EVERY 7TH DAY 12/25/21 Atorvastatin Calcium 40 mg PO DAILY 12/25/21 Furosemide [Lasix*] 20 mg PO DAILY 12/25/21 Gabapentin 300 mg PO BID 12/25/21 Metoprolol Tartrate [Lopressor*] 12.5 mg PO BID 12/25/21 Pantoprazole [Protonix Tab*] 40 mg PO BID 12/25/21 Warfarin Sodium [Coumadin*] 2 mg PO DAILY 12/25/21 Zolpidem Tartrate [Ambien*] 10 mg PO BEDTIME 12/25/21 traMADol HCL [Ultram*] 50 mg PO TID PRN #12 tab 12/25/21 New Medications: traMADol HCL [Ultram*] 50 mg PO TID PRN #12 tab PRN Reason: Pain Diet: AHA Activity: Ad fr[place]isco Followup: Soren Carter MD [ACTIVE - CAN ADMIT] - 1-2 Weeks (Call to schedule coreen ointment.) Saurabh Gonzalez MD [ASSOCIATE-ACTIVE - CAN ADMIT] - 1-2 Weeks (Call to schedule appointment.)
== END 2021-12-25 18:33 | disposition home or self-care (01) ==
LOC: ER 20:49 → 4TH 23:38
PROVIDERS: ADMIT Internal Medicine; ATTEND Internal Medicine
DX: R07.89 Other chest pain (principal); E87.6 Hypokalemia; D64.9 Anemia, unspecified; I48.91 Unspecified atrial fibrillation; I50.32 Chronic diastolic (congestive) heart failure; E78.5 Hyperlipidemia, unspecified; I10 Essential (primary) hypertension; Z20.822 Contact with and (suspected) exposure to COVID-19; Z88.6 Allergy status to analgesic agent; Z79.01 Long term (current) use of anticoagulants; Z95.4 Presence of other heart-valve replacement; Z88.8 Allergy status to other drugs, medicaments and biological substances
CPT/HCPCS: 36430; 93005; 85025 ×2; 80048 ×2; 36415; 86900; 83735 ×2; 86850; 84100; 84132; 85610; 80061; 86901; 84443; 85018; 85014; 84484; 84439; 71045; 97116; 97161; 96374; 99285; 87811; J3475; J1170 ×5; P9016; J7050; G0378 ×2; P9021

== ENCOUNTER 2022-01-31 17:54 | Emergency (ER) | payer OTHER ==
--- OUTSIDE RECORDS SUMMARY | 2022-01-31 18:00 | XMS REPORT | Continuity of Care Document ---
:1955 Author Organization [facility] t Address [address] [place] [address] Care Team Providers Name Role Phone Saurabh Dobson Primary Care Physician RONAL HODGE Attending Clinician Unavailable RONAL HODGE Attending Clinician Unavailable Saurabh Dobson Attending Clinician Unavailable JAMAICA POMPA Attending Clinician Unavailable Jamaica Pompa MD Attending Clinician Pob, [facility] Attending Clinician Unavailable Yolande Love MD Attending Clinician YOLANDE LOVE Attending Clinician Unavailable Doctor Unassigned, [place] Attending Clinician Unavailable Georgie Gamez RN Attending Clinician Unavailable Wayne Rabago MD Attending Clinician Carmen Abernathy MD Attending Clinician WAYNE RABAGO Attending Clinician Unavailable Ricky RODRÍGUEZ Attending Clinician Unavailable Ricky Ibarra Attending Clinician JOSE VILLA Attending Clinician Unavailable Jose Garduno Attending Clinician CALEB HICKS Attending Clinician Unavailable Jamie Deng DO Attending Clinician Caleb Hicks MD Attending Clinician JENNIFER LO Attending Clinician Unavailable Wilber Flowers DO Attending Clinician Jennifer Lo MD Attending Clinician ALISHA MCDOWELL Attending Clinician Unavailable NICK IZQUIERDO Attending Clinician Unavailable RADIOLOGY Attending Clinician Unavailable ALICJA MCDERMOTT Attending Clinician Unavailable WAYNE RABAGO Admitting Clinician Unavailable RONAL HODGE Admitting Clinician Unavailable CALEB HICKS Admitting Clinician Unavailable Caleb Hicks MD Admitting Clinician JENNIFER LO Admitting Clinician Unavailable Jennifer Lo MD Admitting Clinician Payers Payer Name Policy Type Policy Number Effective Date Expiration Date S alfonso [facility] DUAL [id number] 2020 COMP HMO D SNP 00:00:00 [facility] [id number] 2013 PLUS 00:00:00 [place]ICAID [place] [id number] 2022 00:00:00 Problems Condition Condition Condition Status Onset Resolution Last Treating Co mments Source Name Details Category Date Date Treatment Clinician Date Atrial Atrial Disease Active Univers fibrillati fibrillati 8-11 it y of on on 00:00: [place] 00 [facility] E44.0 E44.0 Disease Active 2020-04 Univers Moderate Moderate 1-19 ity of protein protein 00:00: [place] calorie calorie 00 Medical malnutriti malnutriti Br anch on on Other Other Disease Active 2020-04 Univers chest pain chest pain 1-19 it y of 00:00: [place] 00 [facility] Branch Chest pain Chest pain Disease Active 2020-04 U nivers 1-17 ity of 00:00: [address] Elevated Elevated Disease Active 2020-04 Unive rs brain brain 0-24 ity of natriureti natriureti 00:[place] c peptide c peptide 00 Medi tyrone (BNP) (BNP) Branch level level Lab test Lab test Disease Active 2020-04 Unive rs positive positive 0-24 ity of for for 00:00: [place] detection detection 00 Medi tyrone of of Branch COVID-19 COVID-19 virus virus Acute on Acute on Disease Active 2020-04 Unive rs chronic chronic 0-24 [place] [place] diastolic diastolic [place]F 00 Medical (congestiv (congestiv Br anch e heart e heart failure), failure), NYHA class NYHA class 3 3 Mixed Mixed Disease Active Univers hyperlipid hyperlipid 8-20 it y of emia emia 00:00: [place] [facility] Essential Essential Disease Active Uni vers hypertensi hypertensi 8-20 it y of on on 00:00: [place] [facility] Anticoagul Anticoagul Disease Active U nivers ated ated 8-20 ity of 00:00: [place] [facility] Coronary Coronary Disease Active Unive rs artery artery 8-20 ity of disease disease 00:00: [place] involving involving 00 Medi [place] [facility] coronary coronary artery of artery of [place] 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 2-20 ity of disease disease 00:00: [place] involving involving 00 Medi tyrone [place] Branch heart heart without without angina angina [...] Branch drug MORPHINE DRUG Active High SOB 2006- Univers INGREDI 1-15 ity of 00:00: [place] 00 Medical Branch Social History Social Habit Start Date Stop Date Quantity Comments Source Exposure to 2021-12-18 2021-12-28 Not sure University of SARS-CoV-2 00:00:00 10:23:00 [facility] (event) Branch Alcohol intake 2021-11-23 2021-11-23 Current drinker Unive rsity of 00:00:00 00:00:00 of alcohol [facility] (finding) Branch Tobacco use and 2017-06-04 2017-06-04 Smokeless tobacco Un iversity of exposure 00:00:00 00:00:00 non-user [facility] Sex Ass[birth year] At [birth year] Universit y of 00:00:00 00:00:00 [facility] Smoking Status Start Date Stop Date Source Never smoked tobacco [facility] Medications Ordered Filled Start Stop Current Ordering Indication Dosage Frequency Signature Comments Components Source Medication Medication Date Date Medication? Clinician (SIG) Name Name warfarin 2021-04 Yes [id number] 1mg Take 1 Univers mg tablet 0-17 tablet by ity o f 00:00: mouth [place] 00 every Medical evening. Branch Alternate take 1mg x4 days, then 2mg x 3 days ezetimibe 2021-0 Yes 10mg Take 1 Univer s (ZETIA) 10 9-02 tablet by ity of mg tablet 00:00[place] 00 the Medical morning. Branch ezetimibe 2021-0 Yes 10mg Take 1 Univer s (ZETIA) 10 9-02 tablet by ity of mg tablet 00:00: [place] 00 the Medical morning. Branch ezetimibe 2021-0 Yes 10mg Take 1 Univer s (ZETIA) 10 9-02 tablet by ity of mg tablet 00:00: [place] 00 the Medical morning. Branch ezetimibe 2021-0 Yes 10mg Take 1 Univer s (ZETIA) 10 9-02 tablet by ity of mg tablet 00:00: [place] 00 the Medical morning. Branch ezetimibe 2-0 Yes 10mg Take 1 Univer s (ZETIA) 10 9-02 tablet by ity of mg tablet 00:00: [place] 00 the Medical morning. Branch ezetimibe 2021-0 Yes 10mg Take 1 Univer s (ZETIA) 10 9-02 tablet by ity of mg tablet 00:00: [place] 00 the Medical morning. Branch ezetimibe 2022-0 Yes 10mg Take 1 Univer s (ZETIA) 10 9-02 tablet by ity of mg tablet 00:00: [place] 00 the Medical morning. Branch ezetimibe 0 Yes 10mg Take 1 Univer s (ZETIA) 10 9-02 tablet by ity of mg tablet 00:00: [place] 00 the Medical morning. Branch ezetimibe 0 Yes 10mg Take 1 Univer s (ZETIA) 10 9-02 tablet by ity of mg tablet 00:00: [place] 00 the Medical morning. Branch warfarin Yes [id number] 1mg Take 1 Univers mg tablet 8-24 tablet by ity o f 00:00: mouth [place] 00 every Medical evening. Branch Alternate take 1mg x2days, then 2mg x 1 day warfarin Yes [id number] 1mg Take 1 Univers mg tablet 8-24 tablet by ity o f 00:00: mouth [place] 00 every Medical evening. Branch Alternate take 1mg x2days, then 2mg x 1 day warfarin Yes [id number] 1mg Take 1 Univers mg tablet 8-24 tablet by ity o f 00:00: mouth [place] 00 every Medical evening. Branch Alternate take 1mg x2days, then 2mg x 1 day warfarin Yes [id number] 1mg Take 1 Univers mg tablet 8-24 tablet by ity o f 00:00: mouth [place] 00 every Medical evening. Branch Alternate take 1mg x2days, then 2mg x 1 day warfarin Yes [id number] 1mg Take 1 Univers mg tablet 8-24 tablet by ity o f 00:00: mouth [place] 00 every Medical evening. Branch Alternate take 1mg x2days, then 2mg x 1 day warfarin Yes [id number] 1mg Take 1 Univers mg tablet 8-24 tablet by ity o f 00:00: mouth [place] 00 every Medical evening. Branch Alternate take 1mg x2days, then 2mg x 1 day warfarin Yes [id number] 1mg Take 1 Univers mg tablet 8-24 tablet by ity o f 00:00: mouth [place] 00 every Medical evening. Branch Alternate take 1mg x2days, then 2mg x 1 day warfarin 1 Yes [id number] 1mg Take 1 Univers mg tablet 8-24 tablet by ity o f 00:00: mouth [place] 00 every Medical evening. Branch Alternate take 1mg x2days, then 2mg x 1 day warfarin 1 Yes [id number] 1mg Take 1 Univers mg tablet 8-24 tablet by ity o f 00:00: mouth [place] 00 every Medical evening. Branch Alternate take 1mg x2days, then 2mg x 1 day warfarin Yes [id number] 1mg Take 1 Univers mg tablet 8-24 tablet by ity o f 00:00: mouth [place] 00 every Medical evening. Branch Alternate take 1mg x2days, then 2mg x 1 day warfarin 1 Yes [id number] 1mg Take 1 Univers mg tablet 8-24 tablet by ity o f 00:00: mouth [place] 00 every Medical evening. Branch Alternate take 1mg x2days, then 2mg x 1 day warfarin Yes [id number] 1mg Take 1 Univers mg tablet 8-24 tablet by ity o f 00:00: mouth [place] 00 every Medical evening. Branch Alternate take 1mg x2days, then 2mg x 1 day warfarin Yes [id number] 1mg Take 1 Univers mg tablet 8-24 tablet by ity o f 00:00: mouth [place] 00 every Medical evening. Branch Alternate take 1mg x2days, then 2mg x 1 day warfarin 1 2021- No [id number] 1mg Take 1 Univers mg tablet 8-24 10-17 tablet by ity of 00:00: 00:00 mouth [place] 00 :00 every Medical evening. Branch Alternate take 1mg x2days, then 2mg x 1 day warfarin 1 2021- No [id number] 2mg Take 2 Univers mg tablet 8-23 08-24 tablets by ity of 00:00: 00:00 mouth [place] 00 :00 every Medical evening. [place] dofetilide 2021- Yes [id number] 125ug Take 1 Univers 125 mcg 8-12-09 capsule by ity o f capsule 00:00: 04:59 mouth [place] 00 :00 every 12 Medical (twelve) Branch hours for 7 days. dofetilide 2021- Yes [id number] 125ug Take 1 Univers 125 mcg 8-19 08-27 capsule by ity o f capsule 00:00: 04:59 mouth [place] 00 :00 every 12 Medical (twelve) Branch hours for 7 days. dofetilide 2021- Yes [id number] 125ug Take 1 Univers 125 mcg 8-17 11-16 capsule by ity o f capsule 00:00: 05:59 mouth [place] 00 :00 every 12 Medical (twelve) Branch hours for 90 days. dofetilide 2021- Yes [id number] 125ug Take 1 Univers 125 mcg 8-17 11-16 capsule by ity o f capsule 00:00: 05:59 mouth [place] 00 :00 every 12 Medical (twelve) Branch hours for 90 days. dofetilide 2021- Yes [id number] 125ug Take 1 Univers 125 mcg 8-17 11-16 capsule by ity o f capsule 00:00: 05:59 mouth [place] 00 :00 every 12 Medical (twelve) Branch hours for 90 days. dofetilide 2021- Yes [id number] 125ug Take 1 Univers 125 mcg 8-17 11-16 capsule by ity o f capsule 00:00: 05:59 mouth [place] 00 :00 every 12 Medical (twelve) Branch hours for 90 days. dofetilide 2021- Yes [id number] 125ug Take 1 Univers 125 mcg 8-17 11-16 capsule by ity o f capsule 00:00: 05:59 mouth [place] 00 :00 every 12 Medical (twelve) Branch hours for 90 days. dofetilide 2021- Yes [id number] 125ug Take 1 Univers 125 mcg 8-17 11-16 capsule by ity o f capsule 00:00: 05:59 mouth [place] 00 :00 every 12 Medical (twelve) Branch hours for 90 days. dofetilide 2021- Yes [id number] 125ug Take 1 Univers 125 mcg 8-17 11-16 capsule by ity o f capsule 00:00: 05:59 mouth [place] 00 :00 every 12 Medical (twelve) Branch hours for 90 days. dofetilide 2021- Yes [id number] 125ug Take 1 Univers 125 mcg 8-17 11-16 capsule by ity o f capsule 00:00: 05:59 mouth [place] 00 :00 every 12 Medical (twelve) Branch hours for 90 days. dofetilide 2021- Yes [id number] 125ug Take 1 Univers 125 mcg 8-17 11-16 capsule by ity o f capsule 00:00: 05:59 mouth [place] 00 :00 every 12 Medical (twelve) Branch hours for 90 days. dofetilide 2021- Yes [id number] 125ug Take 1 Univers 125 mcg 8-17 11-16 capsule by ity o f capsule 00:00: 05:59 mouth [place] 00 :00 every 12 Medical (twelve) Branch hours for 90 days. dofetilide 2021- Yes [id number] 125ug Take 1 Univers 125 mcg 8-17 11-16 capsule by ity o f capsule 00:00: 05:59 mouth [place] 00 :00 every 12 Medical (twelve) Branch hours for 90 days. dofetilide 2021- Yes [id number] 125ug Take 1 Univers 125 mcg 8-17 11-16 capsule by ity o f capsule 00:00: 05:59 mouth [place] 00 :00 every 12 Medical (twelve) Branch hours for 90 days. dofetilide 2021- Yes [id number] 125ug Take 1 Univers 125 mcg 8-17 11-16 capsule by ity o f capsule 00:00: 05:59 mouth [place] 00 :00 every 12 Medical (twelve) Branch hours for 90 days. dofetilide 2021- Yes [id number] 125ug Take 1 Univers 125 mcg 8-17 11-16 capsule by ity o f capsule 00:00: 05:59 mouth [place] 00 :00 every 12 Medical (twelve) Branch hours for 90 days. dofetilide 2021- Yes [id number] 125ug Take 1 Univers 125 mcg 8-17 11-16 capsule by ity o f capsule 00:00: 05:59 mouth [place] 00 :00 every 12 Medical (twelve) Branch hours for 90 days. atorvastati Yes 80mg Take 1 Univ ers n 80 mg 7-12 tablet by ity of tablet 00:00: mouth at [place] 00 bedtime. Medical Branch atorvastati Yes 80mg Take 1 Univ ers n 80 mg 7-12 tablet by ity of tablet 00:00: mouth at [place] 00 bedtime. Medical Branch atorvastati 2022-0 Yes 80mg Take 1 Univ ers n 80 mg 7-12 tablet by ity of tablet 00:00: mouth at [place] [address] bedtime. Medical Branch atorvastati 2022-0 Yes 80mg Take 1 Univ ers n 80 mg 7-12 tablet by ity of tablet 00:00: mouth at [place] [address] bedtime. Medical Branch atorvastati 2022-0 Yes 80mg Take 1 Univ ers n 80 mg 7-12 tablet by ity of tablet 00:00: mouth at [place] bedtime. Medical Branch atorvastati 2022-0 Yes 80mg Take 1 Univ ers n 80 mg 7-12 tablet by ity of tablet 00:00: mouth at [place] [address] bedtime. Medical Branch atorvastati 2022-0 Yes 80mg Take 1 Univ ers n 80 mg 7-12 tablet by ity of tablet 00:00: mouth at [place] [address] bedtime. Medical Branch atorvastati 2022-0 Yes 80mg Take 1 Univ ers n 80 mg 7-12 tablet by ity of tablet 00:00: mouth at [place] [address] bedtime. Medical Branch atorvastati 2022-0 Yes 80mg Take 1 Univ ers n 80 mg 7-12 tablet by ity of tablet 00:00: mouth at [place] [address] bedtime. Medical Branch atorvastati 2022-0 Yes 80mg Take 1 Univ ers n 80 mg 7-12 tablet by ity of tablet 00:00: mouth at [place] [address] bedtime. Medical Branch atorvastati 2022-0 Yes 80mg Take 1 Univ ers n 80 mg 7-12 tablet by ity of tablet 00:00: mouth at [place] [address] bedtime. Medical Branch atorvastati 2022-0 Yes 80mg Take 1 Univ ers n 80 mg 7-12 tablet by ity of tablet 00:00: mouth at [place] [address] bedtime. Medical Branch atorvastati 2022-0 Yes 80mg Take 1 Univ ers n 80 mg 7-12 tablet by ity of tablet 00:00: mouth at [place] [address] bedtime. Medical Branch atorvastati 2022-0 Yes 80mg Take 1 Univ ers n 80 mg 7-12 tablet by ity of tablet 00:00: mouth at [place] [address] bedtime. Medical Branch atorvastati 2022-0 Yes 80mg Take 1 Univ ers n 80 mg 7-12 tablet by ity of tablet 00:00: mouth at [place] 00 bedtime. Medical Branch ezetimibe 2021-0 Yes 10mg Take [...] mg tablet 00:00: mouth [place] 00 daily. [facility] Branch ezetimibe 2021- No 10mg Take 1 Unive rs (ZETIA) 10 5-20 09-02 tablet by ity of mg tablet 00:00: 00:00 mouth [place] 00 :00 daily. Medical Branch furosemide 2021-0 Yes [id number] 40mg Take 2 Univers 20 mg 2-16 02 tablets by ity of tablet 00:00: mouth [place] 00 daily. Medical Branch furosemide 2021-0 Yes [id number] 40mg Take 2 Univers 20 mg 2-16 02 tablets by ity of tablet 00:00: mouth [place] 00 daily. Medical Branch furosemide 2021-0 Yes [id number] 40mg Take 2 Univers 20 mg 2-16 02 tablets by ity of tablet 00:00: mouth [place] 00 daily. Medical Branch furosemide 2021-0 Yes [id number] 40mg Take 2 Univers 20 mg 2-16 02 tablets by ity of tablet 00:00: mouth [place] 00 daily. Medical Branch furosemide 2021-0 Yes [id number] 40mg Take 2 Univers 20 mg 2-16 02 tablets by ity of tablet 00:00: mouth [place] 00 daily. Medical Branch furosemide 2021-0 Yes [id number] 40mg Take 2 Univers 20 mg 2-16 02 tablets by ity of tablet 00:00: mouth [place] 00 daily. Medical Branch furosemide 0 Yes [id number] 40mg Take 2 Univers 20 mg 2-16 02 tablets by ity of tablet 00:00: mouth [place] 00 daily. Medical Branch furosemide 0 Yes [id number] 40mg Take 2 Univers 20 mg 2-16 02 tablets by ity of tablet 00:00: mouth [place] 00 daily. Medical Branch furosemide 0 Yes [id number] 40mg Take 2 Univers 20 mg 2-16 02 tablets by ity of tablet 00:00: mouth [place] 00 daily. Medical Branch furosemide 0 Yes [id number] 40mg Take 2 Univers 20 mg 2-16 02 tablets by ity of tablet 00:00: mouth [place] 00 daily. Medical Branch furosemide 0 Yes [id number] 40mg Take 2 Univers 20 mg 2-16 02 tablets by ity of tablet 00:00: mouth [place] 00 daily. Medical Branch furosemide 0 Yes [id number] 40mg Take 2 Univers 20 mg 2-16 02 tablets by ity of tablet 00:00: mouth [place] 00 daily. Medical Branch furosemide 0 Yes [id number] 40mg Take 2 Univers 20 mg 2-16 02 tablets by ity of tablet 00:00: mouth [place] 00 daily. Medical Branch furosemide 2021-0 Yes [id number] 40mg Take 2 Univers 20 mg 2-16 02 tablets by ity of tablet 00:00: mouth [place] 00 daily. Medical Branch furosemide 0 Yes [id number] 40mg Take 2 Univers 20 mg 2-16 02 tablets by ity of tablet 00:00: mouth [place] 00 daily. Medical Branch metoprolol 2020-04 Yes [id number] 25mg Take 1 U nivers tartrate 25 2-15 tablet by ity of mg tablet 00:00: mouth 2 [place] 00 (two) Medical times Branch daily. metoprolol 2020-04 Yes [id number] 25mg Take 1 U nivers tartrate 25 2-15 tablet by ity of mg tablet 00:00: mouth 2 [place] 00 (two) Medical times Branch daily. metoprolol 2020-04 Yes [id number] 25mg Take 1 U nivers tartrate 25 2-15 tablet by ity of mg tablet 00:00: mouth (two) Medical times Branch daily. metoprolol 2020-04 Yes [id number] 25mg Take 1 U nivers tartrate 25 2-15 tablet by ity of mg tablet 00:00: mouth (two) Medical times Branch daily. metoprolol 2020-04 Yes [id number] 25mg Take 1 U nivers tartrate 25 2-15 tablet by ity of mg tablet 00:00: mouth (two) Medical times Branch daily. metoprolol 2020-04 Yes [id number] 25mg Take 1 U nivers tartrate 25 2-15 tablet by ity of mg tablet 00:00: mouth (two) Medical times Branch daily. metoprolol 2020-04 Yes [id number] 25mg Take 1 U nivers tartrate 25 2-15 tablet by ity of mg tablet 00:00: mouth (two) Medical times Branch daily. metoprolol 2020-04 Yes [id number] 25mg Take 1 U nivers tartrate 25 2-15 tablet by ity of mg tablet 00:00: mouth (two) Medical times Branch daily. metoprolol 2020-04 Yes [id number] 25mg Take 1 U nivers tartrate 25 2-15 tablet by ity of mg tablet 00:00: mouth (two) Medical times Branch daily. metoprolol 2020-04 Yes [id number] 25mg Take 1 U nivers tartrate 25 2-15 tablet by ity of mg tablet 00:00: mouth (two) Medical times Branch daily. metoprolol 2020-04 Yes [id number] 25mg Take 1 U nivers tartrate 25 2-15 tablet by ity of mg tablet 00:00: mouth (two) Medical times Branch daily. metoprolol 2020-04 Yes [id number] 25mg Take 1 U nivers tartrate 25 2-15 tablet by ity of mg tablet 00:00: mouth (two) Medical times Branch daily. metoprolol 2020-04 Yes [id number] 25mg Take 1 U nivers tartrate 25 2-15 tablet by ity of mg tablet 00:00: mouth 2 00 (two) Medical times Branch daily. metoprolol 2020-04 Yes [id number] 25mg Take 1 U nivers tartrate 25 2-15 tablet by ity of mg tablet 00:00: mouth 2 00 (two) Medical times Branch daily. metoprolol 2020-04 Yes [id number] 25mg Take 1 U nivers tartrate 25 2-15 tablet by ity of mg tablet 00:00: mouth 2 00 (two) Medical times Branch daily. polyethylen 2020-04 Yes [id number] 17g Take 1 Univers e glycol 0-29 Packet by ity of 3350 17 00:00: mouth [place] gram powder 00 daily. Medica l Branch polyethylen 2020-04 Yes [id number] 17g Take 1 Univers e glycol 0-29 Packet by ity of 3350 17 00:00: mouth [place] gram powder 00 daily. Medica l Branch polyethylen 2020-04 Yes [id number] 17g Take 1 Univers e glycol 0-29 Packet by ity of 3350 17 00:00: mouth [place] gram powder 00 daily. Medica l Branch polyethylen 2020-04 Yes [id number] 17g Take 1 Univers e glycol 0-29 Packet by ity of 3350 17 00:00: mouth [place] gram powder 00 daily. Medica l Branch polyethylen 2020-04 Yes [id number] 17g Take 1 Univers e glycol 0-29 Packet by ity of 3350 17 00:00: mouth [place] gram powder 00 daily. Medica l Branch polyethylen 2020-04 Yes [id number] 17g Take 1 Univers e glycol 0-29 Packet by ity of 3350 17 00:00: mouth [place] gram powder 00 daily. Medica l Branch polyethylen 2020-04 Yes [id number] 17g Take 1 Univers e glycol 0-29 Packet by ity of 3350 17 00:00: mouth [place] gram powder 00 daily. Medica l Branch polyethylen 2020-04 Yes [id number] 17g Take 1 Univers e glycol 0-29 Packet by ity of 3350 17 00:00: mouth [place] gram powder 00 daily. Medica l Branch polyethylen 2020-04 Yes [id number] 17g Take 1 Univers e glycol 0-29 Packet by ity of 3350 17 00:00: mouth [place] gram powder 00 daily. Medica l Branch polyethylen 2020-04 Yes [id number] 17g Take 1 Univers e glycol 0-29 Packet by ity of 3350 17 00:00: mouth [place] gram powder 00 daily. Medica l Branch polyethylen 2020-04 Yes [id number] 17g Take 1 Univers e glycol 0-29 Packet by ity of 3350 17 00:00: mouth [place] gram powder 00 daily. Medica l Branch polyethylen 2020-04 Yes [id number] 17g Take 1 Univers e glycol 0-29 Packet by ity of 3350 17 00:00: mouth [place] gram powder 00 daily. Medica l Branch polyethylen 2020-04 Yes [id number] 17g Take 1 Univers e glycol 0-29 Packet by ity of 3350 17 00:00: mouth [place] gram powder 00 daily. Medica l Branch polyethylen 2020-04 Yes [id number] 17g Take 1 Univers e glycol 0-29 Packet by ity of 3350 17 00:00: mouth [place] gram powder 00 daily. Medica l Branch polyethylen 2020-04 Yes [id number] 17g Take 1 Univers e glycol 0-29 Packet by ity of 3350 17 00:00: mouth [place] gram powder 00 daily. Medica l Branch docusate 2020-04 Yes [id number] 100mg Take 1 U nivers 100 mg 0-28 capsule by ity of capsule 00:00: mouth 2 (two) Medical times Branch daily. docusate 2020-04 Yes [id number] 100mg Take 1 U nivers 100 mg 0-28 capsule by ity of capsule 00:00: mouth 2 00 (two) Medical times Branch daily. docusate 2020-04 Yes [id number] 100mg Take 1 U nivers 100 mg 0-28 capsule by ity of capsule 00:00: mouth 2 00 (two) Medical times Branch daily. docusate 2020-04 Yes [id number] 100mg Take 1 U nivers 100 mg 0-28 capsule by ity of capsule 00:00: mouth 2 (two) Medical times Branch daily. docusate 2020-04 Yes [id number] 100mg Take 1 U nivers 100 mg 0-28 capsule by ity of capsule 00:00: mouth (two) Medical times Branch daily. docusate 2020-04 Yes [id number] 100mg Take 1 U nivers 100 mg 0-28 capsule by ity of capsule 00:00: mouth (two) Medical times Branch daily. docusate 2020-04 Yes [id number] 100mg Take 1 U nivers 100 mg 0-28 capsule by ity of capsule 00:00: mouth (two) Medical times Branch daily. docusate 2020-04 Yes [id number] 100mg Take 1 U nivers 100 mg 0-28 capsule by ity of capsule 00:00: mouth (two) Medical times Branch daily. docusate 2020-04 Yes [id number] 100mg Take 1 U nivers 100 mg 0-28 capsule by ity of capsule 00:00: mouth (two) Medical times Branch daily. docusate 2020-04 Yes [id number] 100mg Take 1 U nivers 100 mg 0-28 capsule by ity of capsule 00:00: mouth (two) Medical times Branch daily. docusate 2020-04 Yes [id number] 100mg Take 1 U nivers 100 mg 0-28 capsule by ity of capsule 00:00: mouth (two) Medical times Branch daily. docusate 2020-04 Yes [id number] 100mg Take 1 U nivers 100 mg 0-28 capsule by ity of capsule 00:00: mouth (two) Medical times Branch daily. docusate 2020-04 Yes [id number] 100mg Take 1 U nivers 100 mg 0-28 capsule by ity of capsule 00:00: mouth (two) Medical times Branch daily. docusate 2020-04 Yes [id number] 100mg Take 1 U nivers 100 mg 0-28 capsule by ity of capsule 00:00: mouth (two) Medical times Branch daily. docusate 2020-04 Yes [id number] 100mg Take 1 U nivers 100 mg 0-28 capsule by ity of capsule 00:00: mouth (two) Medical times Branch daily. warfarin Yes [...] ity of tablet 00:00: [place] mouth at [place] [address] bedtime. Medical Branch zolpidem 10 2016-0 Yes Univer s mg tablet 4-21 ity of 00:00: [place] Medical Branch gabapentin 2017-0 Yes Take by [...] 4-21 mouth ity of capsule 00:00: daily. [place] Medical [facility] lidocaine 5 2017-0 Yes Univer s % (700 4-21 ity of mg/patch) 00:00: [place] patch Medical Branch gabapentin 2017-0 Yes Take by Univ ers 300 mg 4-21 mouth ity of capsule 00:00: daily. [place] Medical Branch lidocaine 5 2017-0 Yes Univer s % (700 4-21 ity of mg/patch) 00:00: [place] patch Medical Branch gabapentin 2017-0 Yes Take by Univ ers 300 mg 4-21 mouth ity of capsule 00:00: daily. [place] Medical Branch lidocaine 5 2017-0 Yes Univer s % (700 4-21 ity of mg/patch) 00:00: [place] patch Medical Branch gabapentin 2017-0 Yes Take by Univ ers 300 mg 4-21 mouth ity of capsule 00:00: daily. [place] Medical [facility] lidocaine 5 2017-0 Yes Univer [...] 4-21 mouth ity of capsule 00:00: daily. [place] Medical Branch lidocaine 5 2017-0 Yes Univer s % (700 4-21 ity of mg/patch) 00:00: [place] patch 00 Medical Branch gabapentin 2017-0 Yes Take by Univ ers 300 mg 4-21 mouth ity of capsule 00:00: daily. [place] [facility] lidocaine 5 2017-0 Yes Univer s % (700 4-21 ity of mg/patch) 00:00: [place] patch Medical Branch pantoprazol 2017-0 Yes Univer s e 40 mg EC 4-14 ity of tablet 00:00: [place] [facility] pantoprazol 2017-0 Yes Univer s e 40 mg EC 4-14 ity of tablet 00:00: [place] [facility] pantoprazol 2017-0 Yes Univer s e 40 mg EC 4-14 ity of tablet 00:00: [place] [facility] pantoprazol 2017-0 Yes Univer s e 40 mg EC 4-14 ity of tablet 00:00: [place] [facility] pantoprazol 2017-0 Yes Univer s e 40 mg EC 4-14 ity of tablet 00:00: [place] [facility] pantoprazol 2017-0 Yes Univer s e 40 mg EC 4-14 ity of tablet 00:00: [place] [facility] pantoprazol 2017-0 Yes Univer s e 40 mg EC 4-14 ity of tablet 00:00: [place] [facility] pantoprazol 2017-0 Yes Univer s e 40 mg EC 4-14 ity of tablet 00:00: [place] [facility] pantoprazol 2017-0 Yes Univer s e 40 mg EC 4-14 ity of tablet 00:00: [place] [facility] pantoprazol 2017-0 Yes Univer s e 40 mg EC 4-14 ity of tablet 00:00: [place] [facility] pantoprazol 2017-0 Yes Univer s e 40 mg EC 4-14 ity of tablet 00:00: [place] [facility] pantoprazol 2017-0 Yes Univer s e 40 mg EC 4-14 ity of tablet 00:00: [place] [facility] pantoprazol 2017-0 Yes Univer s [...] [place] 00 daily. Medical Branch aspirin 81 2015- Yes 81mg [...] mouth [place] 00 daily. 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 2007-0 Yes 1 Tab SL Un chong IN 0.4 MG 1-16 Q5MIN PRN ity o f SL SUBL 00:00: [place] 00 Medical Branch Immunizations Ordered Filled Immunization Date Status Comments [facility] e Immunization Name Name Influenza Virus [...] Procedure Date / Time Performed Performing Clinician [facility] e ASSIGNMENT OF BENEFITS 2021-12-14 17:04:14 Doctor Unassigned, No [facility] HOSPITAL ADMISSION 2021-11-23 05:01:00 Doctor Unassigned, No [facility] Plan of Care Planned Activity Planned Date Details Comments Source Future Scheduled 2021-03-29 Depression screening Uni [facility] Test 00:00:00 (procedure) [code = Medical Branch 869698778] Future Scheduled 2020-12-14 INFLUENZA VACCINE [facility] Test 00:00:00 (Season Ended) [code = Medic al Branch INFLUENZA VACCINE (Season Ended)] Future Scheduled 2020-10-29 Screening for [facility] Test 00:00:00 malignant neoplasm of Medica l Branch breast (procedure) [code = 395559371] Future Scheduled 2018 Medicare Annual [facility] Test 00:00:00 Wellness Visit Medical [facility] h (procedure) [code = 385392272692776] Future Scheduled 2018 Screening for [facility] Test 00:00:00 osteoporosis Medical Branch (procedure) [code = 788654742] Future Scheduled 2018 PNEUMOCOCCAL VACCINES [facility] [place] Test 00:00:00 65+ (1 of 1 - PPSV23) Medica l Branch [code = PNEUMOCOCCAL VACCINES 65+ (1 of 1 - PPSV23)] Future Scheduled 2017-02-05 [facility] blood in feces [facility] h (procedure) [code = 305747273] Future Scheduled 2017-02-05 Screening for [facility] Test 00:00:00 malignant neoplasm of Medica l Branch colon (procedure) [code = 150147684] Future Scheduled 2003 Stool DNA-based [facility] Test 00:00:00 colorectal cancer Medical Br anch screening (procedure) [code = 492599550950906] Future Scheduled 2003 Flexible fiber[facility]00 sigmoidoscopy Medical Branch (procedure) [code = 40808953] Future Scheduled 2003 Screening for [facility] Test 00:00:00 malignant neoplasm of Medica l Branch colon (procedure) [code = 337422544] Future Scheduled 2003 Zoster Recom[facility]00 Vaccine (SHINGRIX) (1 Medica l Branch of 2) [code = Zoster Recombinant Vaccine (SHINGRIX) (1 of 2)] Future Scheduled 1972 DTaP,Tdap,and Td [facility] Test 00:00:00 Vaccines (1 - Tdap) Medical Branch [code = DTaP,Tdap,and Td Vaccines (1 - Tdap)] Future Scheduled 1971 Hepatitis C screening [facility] [place] Test 00:00:00 (procedure) [code = Medical Branch 419321828] Future Scheduled 1969 SARS-CoV-2 (COVID-19) [facility] [place] Test 00:00:00 Vaccine (1) [code = Medical Branch SARS-CoV-2 (COVID-19) Vaccine (1)] Encounters Start End Encounter Admission Attending Care Care Encounter Source Date/Time Date/Time Type Type Clinicians Facility Department ID 2021-11-20 Inpatient [facility] [id number] Univers 15:24:28 RONAL HODGE i of [facility] 2021-09-21 Outpatient Dobson, [facility] [employer] [id number] Common 10:27:03 Saurabh [id number] [facility] 2022-02-28 2022-02-28 Outpatient R SY, [facility] [id number] Univers 13:00:00 13:00:00 [place] jimenes [facility] 2022-02-28 2022-02-28 Outpatient R SY, [facility] [id number] Univers 13:00:00 13:00:00 [place] jimenes [facility] 2022-02-28 2022-02-28 Outpatient R SY, [facility] [id number] Univers 13:00:00 13:00:00 [place] jimenes [facility] 2022-02-28 2022-02-28 Outpatient R SY, [facility] [id number] Univers 13:00:00 13:00:00 [place] jimenes [facility] 2022-01-27 2022-01-27 Telephone Sy, [facility] [id number] [id number] Univers 00:00:00 00:00:00 [place] ARANDA 350.1.13.10 ity of [place] [id number] [place] dical NAL 059 [facility] 2022-01-25 2022-01-25 Lathe Winder Farnaz, Adc Lab Main [facility] 1.2.8 40.114 [id number] Univers 08:45:00 09:00:00 Visit [place] Pompa 350.1.13.10 ity of [place] 4.2.7.2.[place] [phone] [place] dical NAL 353 [facility] 2022-01-25 2022-01-25 Outpatient R SY, [facility] [id number] Univers 08:45:00 08:45:00 [place] jimenes [facility] 2022-01-19 2022-01-19 Lathe Winder Farnaz, Adc Lab Main [facility] 1.2.8 40.114 [id number] Univers 12:30:00 12:45:00 Visit [place] 350.1.13.10 ity of [place] 4.2.7.2.[place] [id number] W[place] dical NAL [address] [place] [address] 2022-01-19 2022-01-19 [facility] [id number] Univers 12:30:00 12:30:00 [place] scotty o f [facility] 2022-01-19 2022-01-19 Telephone [facility] 1.2.547.331 [id number] Univers 00:00:00 00:00:00 [place] ARANDA 350.1.13.10 it[place] of [place].2.[place] [id number] [facility] NAL [address] [place] [address] 2022-01-17 2022-01-17 Lathe Winder Farnaz, Adc Lab Main [facility] 1.2.8 40.114 [id number] Univers 08:45:00 09:00:00 Visit [place] 350.1.13.10 [place] of [place].2.7.2.[place] [id number] [place] dicwa NAL [address] [place] [address] 2022-01-17 2022-01-17 [facility] [id number] Univers 08:45:00 08:45:00 [place] perez o f [facility] 2022-01-17 2022-01-17 Telephone [facility] 1.2.384.429 [id number] Univers 00:00:00 00:00:00 [place] ARANDA 350.1.13.10 ity of [place].2.7.2.[place] [phone] W[place] dical NAL [address] [place] [address] 2021-12-28 2021-12-28 Lathe Winder Farnaz, Adc Lab Main [facility] 1.2.8 40.114 [id number] Univers 10:30:00 10:45:00 Visit Vivjaylendylan Yolande ROSI 350.1.13.10 ity of [place] 4.2.7.2.[place] [id number] W[place] dical NAL [address] [place] [address] 2021-12-28 2021-12-28 Outpatient R IVAN, [facility] [id number] Univers 10:30:00 10:30:00 YOLANDE ity of [facility] 2021-12-28 2021-12-28 Telephone SyYANY 1.2.625.640 [id number] Univers 00:00:00 00:00:00 Qiangjun PEDIATRIC 350.1.13.10 it[place] of [place].2.[place] [phone] [address] 2021-12-15 2021-12-15 [facility] 1.2.548.187 [id number] Univers 00:00:00 00:00:00 Qiamerjun [place] 350.1.13.10 ity of [place] 4.2.7.2.[place] [id number] [place] dic[address] 2021-12-15 2021-12-15 [facility]phone [facility] 1.2.181.191 [id number] Univers 00:00:00 00:00:00 [place] 350.1.13.10 ity of [place] 4.2.7.2.[place] [id number] [place] dical NAL 9 [facility] 2021-12-15 2021-12-15 [facility] 1.2.840.114 [id number] Univers 00:00:00 00:00:00 [place] 350.1.13.10 ity of [place] 4.2.7.2.[place] [id number] [place] dical NAL 9 [facility] 2021-12-14 2021-12-14 Lathe Winder Farnaz, Andre Lab Main [facility] 1.2.8 40.114 [id number] Univers 12:30:00 12:45:00 Visit [place] 350.1.13.10 ity of [place] 4.2.7.2.[place] [id number] [facility] 353 [facility] 2021-12-14 2021-12-14 [facility] [id number] Univers 12:30:00 12:30:00 [place] scotty o f [facility] 2021-12-14 2021-12-14 Orders Doctor JOHANN 1.2.840.114 [id number] Univers 00:00:00 00:00:00 Only Unassigned, MIKE 350.1.13.10 ity of [place] [facility] 4.2.7.2.686 Babak as [phone] [facility] 009 Branch 2021-12-04 2021-12-04 Lathe Winder Farnaz, Adc Lab Main [facility] 1.2.8 40.114 [id number] Univers 14:15:00 14:30:00 Visit Sy [place] ARANDA 350.1.13.10 ity [facility] 4.2.7.2.[place] [id number] [place] dical NAL 353 Branch [facility] 2021-12-04 2021-12-04 Outpatient R [facility] [id number] Univers 14:15:00 14:15:00 [place] scotty o [facility] 2021-12-04 2021-12-04 Outpatient R [facility] [id number] Univers 14:15:00 14:15:00 CATRINAZAHEER scotty o [facility] 2021-12-04 2021-12-04 Transition ALESIA Gamez 1.2.840.114 [id number] Univers 00:00:00 00:00:00 of Care Georgie MARIAY 350.1.13.10 it y of [place]2.7.2.[place] [id number] [facility] 403 Branch 2021-12-04 2021-12-04 [facility]phone [facility] 1.2.911.002 [id number] Univers 00:00:00 00:00:00 [place] ARANDA 350.1.13.10 ity of [place] 4.2.7.2.[place] [id number] W[place] dical NAL 059 Branch BUILDING 2021-11-23 2021-12-01 Inpatient R [facility] [id number] Univers 15:31:00 14:11:00 RONAL HODGE ity of [facility] 2021-11-23 2021-12-01 [facility] SHAYAN Hodge 1.2.067.774 [id number] Univers 15:31:00 14:11:00 Encounter Ammelony MCKEON 350.1.13.10 ity of [facility] 4.2.7.2.686 Babak as [id number] [facility] [address] [place] 2021-12-01 2021-12-01 Telephone [facility] 1.2.747.286 [id number] Univers 00:00:00 00:00:00 Wayne ROSI 350.1.13.10 i ty of [place] 4.2.7.2.[place] [id number] W[place] dical NAL 059 [facility] 2021-11-23 2021-11-23 Orders Doctor JOHANN 1.2.840.114 [id number] Univers 00:00:00 00:00:00 Only Unassigned, MIKE 350.1.13.10 ity of [place] [facility] 4.2.7.2.686 Babak as [id number] [facility] [address] [place] 2021-11-22 2021-11-22 Lathe Winder Farnaz, Adc Lab Main [facility] 1.2.8 40.114 [id number] Univers 07:45:00 08:00:00 Visit [place] 350.1.13.10 ity of [place] 4.2.7.2.[place] [id number] [place] dical NAL 353 [facility] 2021-11-22 2021-11-22 Outpatient R [facility] [id number] Univers 07:45:00 07:45:00 [place] scotty o f [facility] 2021-11-22 2021-11-22 Outpatient R [facility] [id number] Univers 07:45:00 07:45:00 [place] scotty o f [facility] 2021-11-20 2021-11-20 Telephone [facility] 1.2.982.201 [id number] Univers 00:00:00 00:00:00 [place] ARANDA 350.1.13.10 ity of [place] 4.2.7.2.686 [place] [id number] [place] dical NAL 9 [facility] 2021-11-10 2021-11-10 Lathe Winder Farnaz, Adc Lab Main [facility] 1.2.8 40.114 [id number] Univers 16:45:00 17:00:00 Visit [place] Pom[place] ROSI 350.1.13.10 ity of [place] 4.2.7.2.[place] [id number] [address] 2021-11-10 2021-11-10 Outpatient R SY, [facility] [id number] Univers 16:45:00 16:45:00 [place] ity o f [facility] 2021-11-10 2021-11-10 Outpatient R SY, [facility] [id number] Univers 16:45:00 16:45:00 [place] scotty o f [facility] 2021-11-10 2021-11-10 [facility]phone [facility] 1.2.163.209 [id number] Univers 00:00:00 00:00:00 [place] ARANDA 350.1.13.10 ity of [place] 4.2.7.2.[place] [id number] [address] 2021-11-07 2021-11-07 Telephone [facility] 1.2.840.114 [id number] Univers 00:00:00 00:00:00 h, Tar HEALTH 350.1.13.10 i ty of [place].2.7.2.686 [place] [id number] [place] [address] Branch OFFICE BUILDING 2021-11-06 2021-11-06 Lathe Winder Farnaz, Adc Lab Main [facility] 1.2.8 40.114 [id number] Univers 13:15:00 13:30:00 Visit Sy Rogerzaheer ROSI 350.1.13.10 ity of [place] 4.2.7.2.686 [place] [id number] [place] dic[address] 2021-11-06 2021-11-06 Outpatient R SY, [facility] [id number] Univers 13:15:00 13:15:00 [place] scotty o f [facility] 2021-11-06 2021-11-06 Outpatient R SY [facility] [id number] Univers 13:15:00 13:15:00 [place] scotty o f [facility] 2021-11-06 2021-11-06 Telephone Sy [facility] 1.2.356.132 [id number] Univers 00:00:00 00:00:00 Rogerzaheer [place] 350.1.13.10 ity [facility] 4.2.7.2.[place] [id number] W[place] dical NAL [address] [place] [address] 2021-11-06 2021-11-06 Telephone [facility] 1.2.006.127 [id number] Univers 00:00:00 00:00:00 Wayne HEALTH 350.1.13.10 it y of [place] 4[place]2.7.2.[place] [id number] [address] OFFICE BUILDING 2021-11-03 2021-11-03 Outpatient R VIDYALEONILA [facility] [id number] Univers 15:00:00 15:40:28 WAYNE ity [facility] 2021-11-03 2021-11-03 Outpatient R VIDYALEONILA [facility] [id number] Univers 15:00:00 15:40:28 WAYNE ity [facility] 2021-11-03 2021-11-03 Office [facility] 1.2.840.114 [id number] Univers 15:00:00 15:20:00 Visit Wayne ROSI 350.1.13.10 i ty of [facility] 4.2.7.2.[place] [id number] [place] dic[address] 2021-11-03 2021-11-03 [facility] [id number] Univers 15:00:00 15:00:00 WAYNE ity [facility] 2021-11-03 2021-11-03 Lathe Winder Farnaz, Adc Lab Main [facility] 1.2.8 40.114 [id number] Univers 14:30:00 14:45:00 Visit Sy Qiangjun [place] 350.1.13.10 ity of [place] 4.2.7.2.686 [place] PROFESS[place] [id number] W[place] dical NAL 353 [facility] 2021-11-03 2021-11-03 Outpatient R HIMA, [facility] [id number] Univers 11:00:00 11:00:00 WAYNE ity of [facility] 2021-11-03 2021-11-03 Outpatient R HIMA, [facility] [id number] Univers 11:00:00 11:00:00 WAYNE ity of [facility] 2021-11-03 2021-11-03 Outpatient R HIMA, [facility] [id number] Univers 11:00:00 11:00:00 WAYNE ity [facility] 2021-11-03 2021-11-03 Telephone [facility] 1.2.595.552 [id number] Univers 00:00:00 00:00:00 [place] 350.1.13.10 ity [facility] 4.2.7.2.[place] [id number] [place] dical NAL 059 [facility] 2021-10-25 2021-10-25 [facility]ill [facility] 1.2.840.114 [id number] Univers 00:00:00 00:00:00 [place] 350.1.13.10 ity of [place] 4.2.7.2.[place] PROF[place] [id number] W[place] dical NAL [address] [place] [address] 2021-10-23 2021-10-23 Lathe Winder Farnaz, Andre Lab Main [facility] 1.2.8 40.114 [id number] Univers 10:15:00 10:30:00 Visit Sy [place] AR[place]DA 350.1.13.10 ity of [place] 4.2.7.2.[place] [id number] W[place] dical NAL [address] [place] [address] 2021-10-23 2021-10-23 [facility] [id number] Univers 10:15:00 10:15:00 [place] scotty o f [facility] 2021-10-23 2021-10-23 [facility] [id number] Univers 10:15:00 10:15:00 CATRINAJUAN ana o f [facility] 2021-10-23 2021-10-23 Orders Doctor JOHANN 1.2.840.114 [id number] Univers 00:00:00 00:00:00 Only Unassigned, MIKE 350.1.13.10 ity of [place] [facility] 4.2.7.2.686 Babak as [id number] [address] 2021-10-23 2021-10-23 [facility]ill [facility] 1.2.840.114 [id number] Univers 00:00:00 00:00:00 [place] ARANDA 350.1.13.10 ity of [place] 4.2.7.2.[place] [id number] W[place] dical NAL 059 [facility] 2021-10-23 2021-10-23 Telephone [facility] 1.2.243.196 [id number] 1983 [facility] 00:00:00 00:00:00 [place] ARANDA 350.1.13.10 ity of [place] 4.2.7.2.[place] [id number] W[place] dical NAL 059 [facility] 2021-10-18 2021-10-18 Lathe Winder Farnaz, Andre Lab Main [facility] 1.2.8 40.114 [id number] [facility] 09:30:00 09:45:00 Visit Sy Rogerzaheer ROSI 350.1.13.10 ity [facility] 4.2.7.2.[place] [id number] W[place] dical NAL 353 [facility] 2021-10-18 2021-10-18 Outpatient R SY [facility] [id number] Univers 09:30:00 09:30:00 [place] perez o abigail [facility] 2021-10-18 2021-10-18 Outpatient R SY [facility] [id number] Univers 09:30:00 09:30:00 [place] perez o abigail [facility] 2021-10-18 2021-10-18 Telephone [facility] 1.2.284.360 [id number] Univers 00:00:00 00:00:00 [place] 350.1.13.10 ity of [place] 4.2.7.2.[place] [id number] W[place] dical NAL 059 [facility] 2021-10-13 2021-10-13 Lathe Winder Farnaz, Adc Lab Main [facility] 1.2.8 40.114 [id number] Univers 10:45:00 11:00:00 Visit [place]paTON 350.1.13.10 ity of [place] 4.2.7.2.[place] [id number] W[place] dical NAL [address] [place] [address] 2021-10-13 2021-10-13 [facility] [id number] Univers 10:45:00 10:45:00 ROGERZAHEER ity o [facility] 2021-10-13 2021-10-13 Outpatient R [facility] [id number] Univers 10:45:00 10:45:00 CATRINAJUAN scotty o [facility] 2021-10-13 2021-10-13 Telephone [facility] 1.2.707.913 [id number] Univers 00:00:00 00:00:00 [place] 350.1.13.10 ity of [place] 4.2.7.2.[place] [id number] W[place] dical NAL 059 [facility] 2021-09-27 2021-09-27 Lathe Winder Farnaz, Adc Lab Main [facility] 1.2.8 40.114 [id number] Univers 10:15:00 10:30:00 Visit [place] 350.1.13.10 ity of [place] 4.2.7.2.[place] [id number] W[place] dical NAL [address] [place] [address] 2021-09-27 2021-09-27 [facility] [id number] Univers 10:15:00 10:15:00 QIAMERZAHEER ity o [facility] 2021-09-27 2021-09-27 [facility] [id number] Univers 10:15:00 10:15:00 QIAMERZAHEER ity o f [facility] 2021-09-27 2021-09-27 Telephone [facility] 1.2.282.221 [id number] Univers 00:00:00 00:00:00 Qiajuan [place] 350.1.13.10 ity of [place] 4.2.7.2.[place] [id number] [place] dicwa NAL 9 [facility] 2021-09-27 2021-09-27 Telephone [facility] 1.2.103.449 [id number] Univers 00:00:00 00:00:00 Qiajuan [place] 350.1.13.10 ity of [place] 4.2.7.2.[place] [id number] W[place] dicwa NAL [address] [place] [address] 2021-09-21 2021-09-21 Refill [facility] 1.2.840.114 [id number] Univers 00:00:00 00:00:00 Qiajuan [place] 350.1.13.10 ity of [place] 4.2.7.2.[place] [id number] W[place] dical NAL 059 [facility] 2021-09-01 2021-09-01 [facility] 1.2.146.488 [id number] Univers 00:00:00 00:00:00 [place] 350.1.13.10 ity of [place] 4.2.7.2.[place] [id number] Wv dical NAL 059 [facility] 2021-08-30 2021-08-30 Lathe Winder Farnaz, Andre Lab Main [facility] 1.2.8 40.114 [id number] Univers 09:00:00 09:15:00 Visit [place] 350.1.13.10 ity of [place] 4.2.7.2.[place] [id number] W[place] dical NAL 353 [facility] 2021-08-30 2021-08-30 Outpatient R SY [facility] [id number] Univers 09:00:00 09:00:00 [place] perez o f [facility] 2021-08-30 2021-08-30 Outpatient R SY, [facility] [id number] Univers 09:00:00 09:00:00 [place] perez o f [facility] 2021-08-30 2021-08-30 Orders Doctor JOHANN 1.2.840.114 [id number] Univers 00:00:00 00:00:00 Only Unassigned, MIKE 350.1.13.10 ity of [place] [facility] 4.2.7.2.686 Babak as [phone] [address] 2021-08-30 2021-08-30 Telephone [facility] 1.2.418.863 [id number] Univers 00:00:00 00:00:00 Catrinamerzaheer ROSI 350.1.13.10 [facility] 4.2.[place] [id number] W[place] dical NAL [address] [place] [address] 2021-08-28 2021-08-28 [facility] [id number] Univers 10:40:00 10:49:42 Visit [place] ARANDA [id number] [facility] [id number] [phone] [place] dic[address] 2021-08-28 2021-08-28 Outpatient R SY, [facility] [id number] Univers 10:40:00 10:49:42 [place] perez o [facility] 2021-08-28 2021-08-28 Outpatient R SY, [facility] [id number] Univers 10:40:00 10:40:00 [place] perez o [facility] 2021-08-28 2021-08-28 Outpatient R SY, [facility] [id number] Univers 10:40:00 10:40:00 [place] perez o [facility] 2021-08-16 2021-08-16 Lathe Winder Farnaz, [facility] Main [facility] [id number] Univers 12:15:00 12:30:00 Visit [place] Pom[place] [id number] ity of [id number] [phone] [place] N[place] [address] [facility] 2021-08-16 2021-08-16 Outpatient R SY, [facility] [id number] Univers 12:15:00 12:15:00 QIANGJUN ity o f [facility] 2021-08-16 2021-08-16 Outpatient R SY, [facility] [id number] Univers 12:15:00 12:15:00 QIANGJUN ana o [facility] 2021-08-16 2021-08-16 Orders Doctor JOHANN [id number] Univers 00:00:00 00:00:00 Only Unassigned, MIKE [id number] ity of [facility][1] [id number] [place]ak as [phone] [address] 2021-08-16 2021-08-16 [facility] 1.2.034.652 [id number] Univers 00:00:00 00:00:00 [place] ARANDA 350.1.13.10 [place] [facility] [place] [phone] [place] dical NAL 059 [facility] 2021-08-02 2021-08-02 Lathe Winder Farnaz, Andre Lab Main [facility] 1.2.8 40.114 [id number] Univers 09:00:00 09:15:00 Visit Catrina Pompamerzaheer ROSI 350.1.13.10 ity of [facility] 4.2.[place] [id number] [place] dical NAL 353 [facility] 2021-08-02 2021-08-02 Outpatient R SY, [facility] [id number] Univers 09:00:00 09:00:00 [place] perez o f [facility] 2021-08-02 2021-08-02 Outpatient R SY, [facility] [id number] Univers 09:00:00 09:00:00 [place] perez o [facility] 2021-08-02 2021-08-02 Orders Doctor WILLS 1.2.840.114 [id number] Univers 00:00:00 00:00:00 Only Unassigned, MIKE 350.1.13.10 ity of [place] [facility] 4.2.7.2.686 Babak as [phone] [address] 2021-08-02 2021-08-02 [facility]phone [facility] 1.2.504.011 [id number] Univers 00:00:00 00:00:00 [place] 350.1.13.10 ity of [facility] 4.2.[place] [phone] [place] dical NAL 059 [facility] 2021-07-10 2021-07-10 Refill [facility] 1.2.840.114 [id number] Univers 00:00:00 00:00:00 Qiamerzaheer [place] 350.1.13.10 ity of [facility] 4.2.[place] [phone] [place] dical NAL 059 [facility] 2021-07-05 2021-07-05 Lathe Winder Farnaz, Adc Lab Main [facility] 1.2.8 40.114 [id number] [facility] 09:30:00 09:45:00 Visit Sy Rogerzaheer KENANTON 350.1.13.10 ity of [facility] 4.2.[place].2.[place] [phone] [place] dical NAL 353 [facility] 2021-07-05 2021-07-05 Outpatient R [facility] [id number] Univers 09:30:00 09:30:00 ROGERJUN ity o f [facility] 2021-07-05 2021-07-05 Outpatient R [facility] [id number] Univers 09:30:00 09:30:00 ROGERJUN ity o f [facility] 2021-07-05 2021-07-05 Telephone [facility] 1.2.038.173 [id number] [facility] 00:00:00 00:00:00 Rogerzaheer KENANTON 350.1.13.10 ity of [facility] 4.2.7.2.[place] [phone] [place] dical NAL 059 [facility] 2021-06-15 2021-06-15 Lathe Winder Farnaz, Adc Lab Main [facility] 1.2.8 40.114 [id number] Univers 09:45:00 10:00:00 Visit [place] Pompa 350.1.13.10 ity of [place] 4.2.[place].2.[place] [phone] [place] dical [facility] 353 [facility] 2021-06-15 2021-06-15 [facility] [id number] Univers 09:45:00 09:23:22 QIANGJUN ity o f [facility] 2021-06-15 2021-06-15 Outpatient R [facility] [id number] Univers 09:45:00 09:23:22 QIAMERJUN ity o f [facility] 2021-06-15 2021-06-15 Orders Doctor JOHANN 1.2.840.114 [id number] Univers 00:00:00 00:00:00 Only Unassigned, MIKE 350.1.13.10 ity of [place] [facility] 4.2.7.2.686 Babak as [phone] [facility] [address] 2021-06-15 2021-06-15 Telephone YANY Pom[place] 1.2.951.273 [id number] Univers 00:00:00 00:00:00 [place] PEDIATRIC 350.1.13.10 [place]2.[place].2.[place] [phone] [facility] PRIMARY 059 [facility] 2021-05-31 2021-05-31 Lathe Winder Farnaz, Adc Lab Main [facility] 1.2.8 40.114 [id number] Univers 10:45:00 11:00:00 Visit [place] Pom[place] 350.1.13.10 ity of [place] 4.2.7.2.[place] [phone] [place] dical NAL 353 [facility] 2021-05-31 2021-05-31 Office Sy [facility] 1.2.840.114 [id number] Univers 10:00:00 10:33:12 Visit [place] ARANDA 350.1.13.10 ity of [place] 4.2.7.2.[place] [phone] [place] dical NAL 059 [facility] 2021-05-31 2021-05-31 Outpatient R SY, [facility] [id number] Univers 10:00:00 10:33:12 [place] ity o [facility] 2021-05-31 2021-05-31 Outpatient R SY, [facility] [id number] Univers 10:00:00 10:00:00 [place] scotty o [facility] 2021-05-31 2021-05-31 Telephone Sy, [facility] 1.2.765.830 [id number] Univers 00:00:00 00:00:00 [place] ARANDA 350.1.13.10 ity of [facility] 4.2.7.2.[place] [phone] [place] [id number] [facility] 2021-05-26 2021-05-26 Emergency X JAKE, K [facility] ERT [id number] Univers 17:30:00 20:34:00 ity of [facility] 2021-05-26 2021-05-26 Emergency Jake, K [facility] 1.2.840.114 [id number] Univers 17:30:00 20:34:00 Myah ARANDA 350.1.13.10 i ty of [facility] 4.2.7.2.[place] [phone] [facility] [address] 2021-05-26 2021-05-26 Outpatient R SY, [facility] [id number] Univers 10:20:00 10:20:00 [place] perez o [facility] 2021-05-26 2021-05-26 Outpatient R SY, [facility] [id number] Univers 10:20:00 10:20:00 [place] scotty o [facility] 2021-05-10 2021-05-10 Lathe Winder Farnaz, Andre Lab Main [facility] 1.2.8 40.114 [id number] Univers 08:15:00 08:30:00 Visit Catrina Pompamerzaheer ROSI 350.1.13.10 ity of [place] 4.2.7.2.[place] [phone] [facility] 353 [facility] 2021-05-10 2021-05-10 Outpatient R SY, [facility] [id number] Univers 08:15:00 08:15:00 [place] ity o f [facility] 2021-05-10 2021-05-10 Outpatient R SY, [facility] [id number] Univers 08:15:00 08:15:00 QIAJUAN ity o f [facility] 2021-05-10 2021-05-10 Telephone [facility] 1.2.642.914 [id number] Univers 00:00:00 00:00:00 Qiajuan [place] 350.1.13.10 ity of [place] 4.2.7.2.[place] [phone] [address] 2021-05-10 2021-05-10 Telephone [facility] 1.2.900.297 [id number] Univers 00:00:00 00:00:00 Qiamerjun [place] 350.1.13.10 ity of [place] 4.2.7.2.[place] [phone] [facility] NAL [address] [place] [address] 2021-05-09 2021-05-09 Refill [facility] 1.2.840.114 [id number] Univers 00:00:00 00:00:00 Qiajuan [place] 350.1.13.10 ity of [place] 4.2.7.2.[place] [phone] [address] 2021-05-04 2021-05-04 [facility] 1.2.840.114 [id number] Univers 00:00:00 00:00:00 Qiajuan [place] 350.1.13.10 ity of [place] 4.2.7.2.[place] [phone] [address] 2021-04-28 2021-04-28 [facility] [id number] Univers 08:40:00 09:19:00 WAYNE ity of [facility] 2021-04-28 2021-04-28 Office [facility] 1.2.840.114 [id number] Univers 08:40:00 09:19:00 Visit Wayne ROSI 350.1.13.10 i ty of [place] 4.2.7.2.[place] [phone] [facility] 059 [facility] 2021-04-28 2021-04-28 Outpatient R HIMA [facility] [id number] Univers 08:40:00 09:19:00 WAYNE ity of [facility] 2021-04-28 2021-04-28 Lathe Winder Farnaz, Adc Lab Main [facility] 1.2.8 40.114 [id number] Univers 08:00:00 08:15:00 Visit [place] Pom[place] 350.1.13.10 ity of [facility] 4.2.7.2.[place] [phone] [facility] 353 [facility] 2021-04-27 2021-04-27 Lathe Winder Farnaz, Adc Lab Main [facility] 1.2.8 40.114 [id number] Univers 10:45:00 11:00:00 Visit [place] 350.1.13.10 ity of [place] 4.2.7.2.[place] [id number] [address] 2021-04-27 2021-04-27 Outpatient R SY [facility] [id number] Univers 10:45:00 10:45:00 [place] scotty o f [facility] 2021-04-27 2021-04-27 Outpatient R SY [facility] [id number] Univers 10:45:00 10:45:00 ROGERJUN ity o f [facility] 2021-04-27 2021-04-27 Telephone YANY [place] 1.2.618.079 [id number] Univers 00:00:00 00:00:00 [place] PEDIATRIC 350.1.13.10 [place] of [place]2.7.2.[place] [id number] [place] 447839 [facility] 2021-04-25 2021-04-25 Outpatient R HIMA [facility] [id number] Univers 10:20:00 10:20:00 WAYNE ity of [facility] 2021-04-25 2021-04-25 Outpatient R HIMA, [facility] [id number] Univers 10:20:00 10:20:00 WAYNE ity [facility] 2021-04-12 2021-04-12 Lathe Winder Farnaz, Adc Lab Main [facility] 1.2.8 40.114 [id number] Univers 09:30:00 09:45:00 Visit [place] 350.1.13.10 ity of [place] 4.2.7.2.[place] [phone] Me dical NAL 353 [facility] 2021-04-12 2021-04-12 Outpatient R SY [facility] [id number] Univers 09:30:00 09:30:00 [place] tylerjake jimenes [facility] 2021-04-12 2021-04-12 [facility] [id number] Univers 09:30:00 09:30:00 [place] perez jalil [facility] 2021-04-12 2021-04-12 Orders Doctor JOHANN 1.2.840.114 [id number] Univers 00:00:00 00:00:00 Only Unassigned, MIKE 350.1.13.10 ity of [place] [facility] 4.2.7.2.686 Babak as [phone] [address] 2021-04-12 2021-04-12 Telephone Sy [facility] 1.2.135.441 [id number] Univers 00:00:00 00:00:00 [place] ARANDA 350.1.13.10 ity [facility] 4.2.7.2.[place] [phone] [place] dical NAL 059 [facility] 2021-03-29 2021-03-29 [facility] [id number] Univers 11:20:00 11:20:58 ROGERZAHEER ana jalil [facility] 2021-03-29 2021-03-29 Office [facility] 1.2.840.114 [id number] Univers 11:20:00 11:20:58 Visit [place] ARANDA 350.1.13.10 ity [facility] 4.2.7.2.[place] [phone] [place] dical NAL 059 [facility] 2021-03-28 2021-03-28 Lathe Winder Farnaz, Andre Lab Main [facility] 1.2.8 40.114 [id number] Univers 12:13:20 12:28:20 Visit [place] Pom[place] 350.1.13.10 ity of [place] 4.2.7.2.[place] [phone] [place] dical NAL 353 [facility] 2021-03-28 2021-03-28 Outpatient R [facility] [id number] Univers 12:15:00 12:15:00 [place] perez o [facility] 2021-03-28 2021-03-28 [facility] [id number] Univers 12:15:00 12:15:00 [place] perez o [facility] 2021-03-28 2021-03-28 Orders Doctor JOHANN 1.2.840.114 [id number] Univers 00:00:00 00:00:00 Only Unassigned, MIKE 350.1.13.10 ity of [place] [facility] 4.2.7.2.686 Babak as [id number] [address] 2021-03-28 2021-03-28 [facility]phone [facility] 1.2.751.626 [id number] Univers 00:00:00 00:00:00 [place] ARANDA 350.1.13.10 it[facility] 4.2.7.2.[place] [phone] [place] dical NAL 9 [facility] 2021-03-28 2021-03-28 [facility]ill [facility] 1.2.840.114 [id number] Univers 00:00:00 00:00:00 [place] ARANDA 350.1.13.10 ity [facility] 4.2.7.2.[place] [phone] [place] dical NAL 059 [facility] 2021-03-20 2021-03-20 [facility] [id number] Univers 13:45:00 13:45:00 [place] perez o f [facility] 2021-03-20 2021-03-20 Outpatient R SY [facility] [id number] Univers 13:45:00 13:45:00 [place] perez o f [facility] 2021-03-20 2021-03-20 Lathe Winder Farnaz, Adc Lab Main [facility] 1.2.8 40.114 [id number] Univers 11:58:29 12:13:29 Visit Sy [place] AR[place]DA 350.1.13.10 ity [facility] 4.2.7.2.[place] [id number] [place] dical NAL 353 [facility] 2021-03-20 2021-03-20 Telephone [facility] 1.2.214.345 [id number] Univers 00:00:00 00:00:00 [place] ARANDA 350.1.13.10 ity of [facility] 4.2.7.2.[place] [phone] [place] dical NAL 059 [facility] 2021-03-15 2021-03-15 Outpatient [facility] [id number] Univers 09:15:00 09:15:00 JOSE perez [facility] 2021-03-15 2021-03-15 Outpatient Joan [facility] [id number] Univers 09:15:00 09:15:00 JOSE perez [facility] 2021-03-15 2021-03-15 Lathe Winder Farnaz, Adc Lab Main [facility] 1.2.8 40.114 [id number] Univers 08:14:37 08:29:37 Visit Jose Villa ROSI 350.1.13. 10 ity [facility] 4.2.7.2.[place] [id number] [place] dical NAL 353 [facility] 2021-03-15 2021-03-15 Orders Doctor WILLS 1.2.840.114 [id number] Univers 00:00:00 00:00:00 Only Unassigned, MIKE 350.1.13.10 ity of [place] [facility] 4.2.7.2.686 Babak as [id number] [address] 2021-03-15 2021-03-15 Telephone [facility] 1.2.071.046 [id number] Univers 00:00:00 00:00:00 Rogerzaheer CAMPJAVIRE 350.1.13.10 ity of [place] 4.2.7.2.[place] [phone] [place] dical NAL [address] [facility] 2021-03-07 2021-03-07 Transition ALESIA Gamez 1.2.840.114 [id number] Univers 00:00:00 00:00:00 of Care Georgie SAMANIEGO 350.1.13.10 it y of [place] 4[place]2.7.2.[place] [phone] [facility] [address] 2021-03-01 2021-03-06 Inpatient X LILIA [facility] BERENICE [id number] Univers 11:31:00 15:17:00 CALEB perez [facility] 2021-03-01 2021-03-06 [facility] Jamie Deng [facility] 1.2.840.1 14 [id number] Univers 11:31:00 15:17:00 Encounter Lilia Caleb ARANDA 350.1.13.10 ity [facility] 4.2.7.2.[place] [id number] [facility] [address] 2021-03-01 2021-03-01 Outpatient X [facility] BERENICE [id number] Univers 11:31:00 11:31:00 CALEB perez [facility] 2021-02-27 2021-02-27 Outpatient R SY, [facility] [id number] Univers 11:20:00 11:44:55 [place] perez o [facility] 2021-02-27 2021-02-27 Outpatient R SY, [facility] [id number] Univers 11:20:00 11:44:55 [place] perez o [facility] 2021-02-27 2021-02-27 Outpatient R SY, [facility] [id number] Univers 11:20:00 11:44:55 [place] perez o [facility] 2021-02-27 2021-02-27 Outpatient R SY, [facility] [id number] Univers 11:20:00 11:44:55 [place] scotty o f [facility] 2021-02-27 2021-02-27 Office [facility] 1.2.840.114 [id number] Univers 10:54:32 11:44:55 Visit [place] ARANDA 350.1.13.10 ity [facility] 4.2.7.2.[place] [id number] W[place] dical NAL 059 [facility] 2021-02-27 2021-02-27 Outpatient R [facility] [id number] Univers 10:30:00 10:30:00 [place] perez o abigail [facility] 2021-02-27 2021-02-27 Outpatient R [facility] [id number] Univers 10:30:00 10:30:00 [place] perez o abigail [facility] 2021-02-27 2021-02-27 Lathe Winder Farnaz, Adc Lab Main [facility] 1.2.8 40.114 [id number] Univers 09:52:58 10:07:58 Visit [place] Pom[place] 350.1.13.10 ity of [facility] 4.2.7.2.[place] [phone] [place] dical [facility] 353 [facility] 2021-02-27 2021-02-27 Orders Doctor JOHANN 1.2.840.114 [id number] Univers 00:00:00 00:00:00 Only Unassigned, MIKE 350.1.13.10 ity of [place] [facility] 4.2.7.2.686 Babak as [phone] [address] 2021-02-27 2021-02-27 Telephone [facility] 1.2.654.723 [id number] Univers 00:00:00 00:00:00 Catrinamerzaheer ROSI 350.1.13.10 ity of [place] 4.2.7.2.[place] [phone] W[place] dical NAL 059 [facility] 2021-02-24 2021-02-24 Outpatient R [facility] [id number] Univers 10:45:00 10:45:00 [place] perez o abigail [facility] 2021-02-24 2021-02-24 [facility] [id number] Univers 10:45:00 10:45:00 [place] perez o f [facility] 2021-02-24 2021-02-24 Lathe Winder Farnaz, Adc Lab Main [facility] 1.2.8 40.114 [id number] Univers 09:17:46 09:32:46 Visit [place] Pompa 350.1.13.10 ity of [place] 4.2.7.2.[place] [id number] [place] dical NAL 353 [facility] 2021-02-24 2021-02-24 Telephone [facility] 1.2.715.433 [id number] Univers 00:00:00 00:00:00 [place] CAMPTON 350.1.13.10 ity of [place] 4.2.7.2.[place] [id number] W[place] dical NAL 059 [facility] 2021-02-24 2021-02-24 Telephone [facility] 1.2.533.943 [id number] Univers 00:00:00 00:00:00 [place] CAMPTON 350.1.13.10 ity of [place] 4.2.7.2.[place] [id number] [place] dical NAL 059 [facility] 2021-02-24 2021-02-24 [facility] 1.2.565.798 [id number] Univers 00:00:00 00:00:00 [place] CAMPTON 350.1.13.10 ity of [place] 4.2.7.2.[place] [id number] W[place] dical NAL 059 [facility] 2021-02-15 2021-02-15 Lathe Winder Farnaz, Adc Lab Main [facility] 1.2.8 40.114 [id number] Univers 09:47:39 10:02:39 Visit [place] Pom[place] 350.1.13.10 ity of [place] 4.2.7.2.[place] [phone] W[place] dical NAL 353 [facility] 2021-02-15 2021-02-15 Outpatient R SY [facility] [id number] Univers 09:45:00 09:45:00 [place] perez o f [facility] 2021-02-15 2021-02-15 Outpatient Joan OPMPA [facility] [id number] Univers 09:45:00 09:45:00 [place] perez o f [facility] 2021-02-15 2021-02-15 Orders Doctor JOHANN 1.2.840.114 [id number] Univers 00:00:00 00:00:00 Only Unassigned, MIKE 350.1.13.10 ity of [place] [facility] 4.2.7.2.686 Babak as [id number] [facility] [address] 2021-02-15 2021-02-15 [facility]phone [facility] 1.2.695.313 [id number] Univers 00:00:00 00:00:00 [place] ARANDA 350.1.13.10 ity [facility] 4.2.7.2.[place] [id number] [place] dical NAL 059 [facility] 2021-02-10 2021-02-10 Transition ALESIA Gamez 1.2.840.114 [id number] Univers 00:00:00 00:00:00 of Care Georgie MARIAY 350.1.13.10 it y of [place] 4.2.7.2.[place] [id number] [facility] [address] 2021-02-04 2021-02-09 Inpatient X MIG[facility]EL [facility] [id number] Univers 20:57:00 13:26:00 JENNIFER ity of [facility] 2021-02-04 2021-02-09 [facility] Jamie Deng [facility] 1.2.840.1 14 [id number] Univers 20:57:00 13:26:00 Encounter Wilber Flowers 350.1.13.10 ity of [place] 4.2.7.2.686 [facility] [id number] [facility] [address] 2021-01-02 2021-01-02 Lathe Winder Farnaz, Andre Lab Main [facility] 1.2.8 40.114 [id number] Univers 11:35:12 11:50:12 Visit [place] Pom[place]on 350.1.13.10 ity of [place].2.7.2.[place] Profess[place] [phone] W[place] dical nal 353 [facility] 2021-01-02 2021-01-02 Outpatient R [facility] [id number] Univers 11:45:00 11:45:00 [place] ity o f [facility] 2021-01-02 2021-01-02 Outpatient R [facility] [id number] Univers 11:45:00 11:45:00 [place] perez o f [facility] 2021-01-02 2021-01-02 Orders Doctor JOHANN 1.2.840.114 [id number] Univers 00:00:00 00:00:00 Only Unassigned, MIKE 350.1.13.10 ity of [place] [facility] 4.2.7.2.686 Babak as [phone] [address] 2021-01-02 2021-01-02 Telephone [facility] 1.2.250.751 [id number] Univers 00:00:00 00:00:00 [place] Aranda 350.1.13.10 ity of [place].2.[place] [phone] Wv dicwa nal 059 [facility] 2021-01-02 2021-01-02 Refill [facility] 1.2.840.114 [id number] Univers 00:00:00 00:00:00 [place] Aranda 350.1.13.10 ity of [place].2.[place] Profess[place] [phone] [place] dical nal 059 [facility] 2020-12-07 2020-12-07 Lathe Winder Andre Osei Lab Main [facility] 1.2.8 40.114 [id number] Univers 08:05:37 08:20:37 Visit [place] Pompa Rosi 350.1.13.10 ity of [place] 4.2.7.2.[place] Profess[place] [phone] [place] dical nal 353 [facility] 2020-12-07 2020-12-07 Outpatient R SY, [facility] [id number] Univers 08:00:00 08:00:00 [place] jimenes [facility] 2020-12-07 2020-12-07 Outpatient R SY, [facility] [id number] Univers 08:00:00 08:00:00 [place] jimenes [facility] 2020-12-07 2020-12-07 Telephone Sy, [facility] [id number] Univers 00:00:00 00:00:00 [place] Aranda [id number] ity kendra [place] [id number] Jose Elias Fleming [phone] [place] 059 [facility] 2020-11-23 2020-11-23 Outpatient R SY, [facility] [id number] Univers 13:37:45 23:59:00 [place] jimenes [facility] 2020-11-23 2020-11-23 Outpatient R SY, [facility] [id number] Univers 13:37:45 23:59:00 [place] jimenes [facility] 2020-11-14 2020-11-14 Outpatient R SY, [facility] [id number] Univers 13:40:00 13:40:00 [place] perez [facility] 2020-10-12 2020-10-12 Outpatient R SY, [facility] [id number] Univers 08:00:00 08:00:00 [place] jimenes [facility] 2020-09-27 2020-09-27 Outpatient R SY, [facility] [id number] Univers 13:00:00 13:00:00 [place] jimenes [facility] 2020-09-22 2020-09-22 Outpatient R SY, [facility] [id number] Univers 09:30:00 09:30:00 [place] jimenes [facility] 2020-09-07 2020-09-07 Outpatient R YS, [facility] [id number] Univers 08:45:00 08:45:00 [place] jimenes [facility] 2020-08-192020-08-19 Outpatient R SY, [facility] [id number] Univers 08:45:00 08:45:00 [place] hayes [facility] 2020-08-15 2020-08-15 Outpatient R SY, [facility] [id number] Univers 10:45:00 10:45:00 [place] perez o abigail [facility] 2020-08-08 2020-08-08 Outpatient R SY, [facility] [id number] Univers 11:45:00 11:45:00 [place] perez o [facility] 2020-08-08 2020-08-08 Lathe Winder Farnaz, Andre [facility] [id number] 11:14:44 11:29:44 Visit Lab Main Rosi [id number] [place] [id number] Professio [phone] [facility] 353 [facility] 2020-08-08 2020-08-08 Orders Doctor JOHANN [id number] 00:00:00 00:00:00 Only Unassigned, MIKE [id number] [place] [facility] 4.2.7.2.[id number] [facility] 2020-08-08 2020-08-08 Telephone [facility] [id number] 00:00:00 00:00:00 Catrinamerzaheer Aranda 350.1.13.10 [employer] 4.2.7.2.686 Professio [phone] [facility] 059 [facility] 2020-07-25 2020-07-25 Telephone [facility] [id number] 00:00:00 00:00:00 Catrinamerzaheer Aranda 350.1.13.10 [employer] 4.2.7.2.686 Professio [phone] [facility] 059 [facility] 2020-07-20 2020-07-20 Outpatient R [facility] [id number] Univers 11:45:00 11:45:00 [place] jimenes [facility] 2020-07-20 2020-07-20 Lathe Winder Andre Osei [facility] 1.2.840.114 [id number] 10:37:03 10:52:03 Visit Lab Main [place] 350.1.13.10 [employer] 4.2.7.2.686 Professio [phone] [facility] 353 [facility] 2020-07-20 2020-07-20 Orders Doctor JOHANN 1.2.840.114 [id number] 00:00:00 00:00:00 Only Unassigned, MIKE 350.1.13.10 [place] [facility] 4.2.7.2.686 [id number] [id number] 2020-07-20 2020-07-20 Telephone [facility] [id number] 00:00:00 00:00:00 [place] Aranda 350.1.13.10 [place] 4.2.7.2.686 Professio [phone] [address] 2020-07-13 2020-07-13 Out[facility] [id number] Univers 10:15:00 10:15:00 [place] perez o f [facility] 2020-07-13 2020-07-13 Lathe Winder Farnaz [facility] 1.2.840.114 [id number] 09:23:20 09:38:20 Visit Lab Main [place] 350.1.13.10 [employer] 4.2.7.2.686 Professio [phone] [address] 2020-07-13 2020-07-13 Telephone [facility] [id number] 00:00:00 00:00:00 [place] Aranda 350.1.13.10 [employer] 4.2.7.2.686 Professio [phone] [facility] [address] [place] [address] 2020-06-19 2020-06-19 Telephone [facility] [id number] 00:00:00 00:00:00 [place] 350.1.13.10 [employer] 4.2.7.2.686 Professio [phone] [address] 2020-06-17 2020-06-17 Lathe Winder Farnaz [facility] 1.2.840.114 [id number] 09:22:55 09:37:55 Visit Lab Main [place] 350.1.13.10 [place] 4.2.7.2.686 Professio [phone] [address] 2020-06-17 2020-06-17 Outpatient [facility] [id number] Univers 09:30:00 09:30:00 [place] jimenes [facility] 2020-06-08 2020-06-08 Telephone [facility] [id number] 00:00:00 00:00:00 [place] 350.1.13.10 [facility] 4.2.7.2.686 Professio [phone] [address] 2020-06-07 2020-06-07 Lathe Winder Farnaz, [facility] 1.2.840.114 [id number] 08:57:47 09:12:47 Visit Lab Main [place] 350.1.13.10 Mariael[place] 4.2.7.2.686 Professio [phone] [address] 2020-06-07 2020-06-07 Outpatient R [facility] [id number] Univers 09:00:00 09:00:00 [place] jimenes [facility] 2020-05-23 2020-05-23 Out[facility] [id number] Univers 09:15:00 09:15:00 [place] jimenes [facility] 2020-05-16 2020-05-16 Outpatient [facility] [id number] Univers 11:30:00 11:30:00 [place] jimenes [facility] 2020-05-16 2020-05-16 Lathe Winder Farnaz, [facility] ..840.114 [id number] 11:09:17 11:24:17 Visit Lab Main [place] 350.1.13.10 Mariaelena 4.2.7.2.686 Professio [phone] [address] 2020-05-16 2020-05-16 Orders Doctor WILLS 1.2.840.114 [id number] 00:00:00 00:00:00 Only Unassigned, MIKE 350.1.13.10 [place] [facility] 4.2.7.2.686 [id number] [id number] 2020-05-16 2020-05-16 Telephone [facility] [id number] 00:00:00 00:00:00 Rogerzaheer [place] 350.1.13.10 [facility] 4.2.7.2.686 Professio [phone] [facility] 059 [facility] 2020-05-11 2020-05-11 Lathe Winder Andre Osei [facility] 1.2.840.114 [id number] 09:25:07 09:40:07 Visit Lab Main [place] 350.1.13.10 [employer] 4.2.7.2.686 Professio [phone] [facility] 353 [facility] 2020-05-11 2020-05-11 Outpatient R JEREMIAS, [facility] [id number] Univers 09:30:00 09:30:00 SENDIL ana [facility] 2020-05-11 2020-05-11 Telephone [facility] [id number] 00:00:00 00:00:00 [place] Aranda 350.1.13.10 [employer] 4.2.7.2.686 Professio [phone] [address] 2020-05-11 2020-05-11 Telephone [facility] [id number] 00:00:00 00:00:00 [place] Aranda 350.1.13.10 [employer] 4.2.7.2.686 Professio [phone] [address] 2020-05-04 2020-05-04 Telephone [facility] [id number] 00:00:00 00:00:00 [place] 350.1.13.10 [employer] 4.2.7.2.686 Professio [phone] [address] 2020-05-03 2020-05-03 Outpatient R [facility] [id number] Univers 11:30:00 11:30:00 [place] perez o f [facility] 2020-05-03 2020-05-03 Lathe Winder Farnaz, [facility] 1.2.840.114 [id number] 10:05:00 10:20:00 Visit Lab Main [place] 350.1.13.10 [employer] 4.2.7.2.686 Professio [phone] [address] 2020-05-03 2020-05-03 Orders Doctor JOHANN 1.2.840.114 [id number] 00:00:00 00:00:00 Only Unassigned, MIKE 350.1.13.10 [place] [facility] 4.2.7.2.686 [id number] [id number] 2020-04-27 2020-04-27 Lathe Winder Farnaz, [facility] 1.2.840.114 [id number] 08:24:03 08:39:03 Visit Lab Main [place] 350.1.13.10 [employer] 4.2.7.2.686 Professio [phone] [address] 2020-04-27 2020-04-27 Outpatient R [facility] [id number] Univers 08:30:00 08:30:00 [place] perez o f [facility] 2020-04-27 2020-04-27 Telephone [facility] [id number] 00:00:00 00:00:00 Rogerzaheer [place] 350.1.13.10 [employer] 4.2.7.2.686 Professio [phone] [address] 2020-04-20 2020-04-20 [facility] 1.2.840.114 [id number] 00:00:00 00:00:00 Rogerzaheer [place] 350.1.13.10 [employer] 4.2.7.2.686 Professio [phone] [address] 2020-04-01 2020-04-01 Outpatient R TIMBO [facility] [id number] Univers 10:15:00 10:15:00 NICK perez [facility] 2020-03-29 2020-03-29 [facility] 1.2.840.114 [id number] 14:32:40 15:25:41 Visit [place] Aranda 350.1.13.10 [employer] 4.2.7.2.686 Lonnie [phone] nal 059 Building 2020-03-29 2020-03-29 Outpatient R SY, [facility] [id number] Univers 14:40:00 14:40:00 [place] scotty o [facility] 2020-03-22 2020-03-22 Outpatient R SY, [facility] [id number] Univers 15:30:00 15:30:00 [place] ity o [facility] 2020-03-15 2020-03-15 Outpatient R SY, [facility] [id number] Univers 11:15:00 11:15:00 [place] ity o [facility] 2020-02-24 2020-02-24 Outpatient R SY, [facility] [id number] Univers 08:40:00 08:40:00 [place] scotty o [facility] 2020-02-17 2020-02-17 Outpatient R SY, [facility] [id number] Univers 09:15:00 09:15:00 [place] scotty o [facility] 2020-01-11 2020-01-11 Outpatient R SY, [facility] [id number] Univers 12:45:00 12:45:00 [place] ity o [facility] 2019-12-17 2019-12-17 Outpatient R SY, [facility] [id number] Univers 11:00:00 11:00:00 [place] ity o [facility] 2019-11-26 2019-11-26 Outpatient R SY, [facility] [id number] Univers 12:45:00 12:45:00 [place] scotty o [facility] 2019-10-30 2019-10-30 Outpatient R RADIOLOGY [facility] [id number] Univers 00:00:00 00:00:00 y [facility] 2019-10-20 2019-10-20 Outpatient R MCDERMOTT, ALICJA [facility] [id number] Univers 09:30:00 09:30:00 ity [facility] 2019-09-30 2019-09-30 Outpatient R SY, [facility] [id number] Univers 08:30:00 08:30:00 [facility] 2019-09-08 2019-09-08 Outpatient R SY, [facility] [id number] Univers 15:20:00 15:20:00 [facility] 2019-09-03 2019-09-03 Outpatient R SY, [facility] [id number] Univers 09:00:00 09:00:00 [facility] 2019-07-24 2019-07-24 Outpatient R SY, [facility] [id number] Univers 11:45:00 11:45:00 [facility] 2019-06-22 2019-06-22 [facility] [id number] Univers 13:30:00 13:30:00 [facility] Results This patient has no known results.
[2022-01-31 18:44] LABS: Absolute Lymphocytes (CBC) 1.2 K/uL (0.7-4.9); Hematocrit 27.5 % (36.0-45.0); Lymphocytes % 22.5 % (15.3-44.8); MCV 87.5 fL (80-100); MPV 8.4 fL (7.6-11.3); RBC Red Blood Cell Count 3.14 M/uL (3.86-4.86)
--- NOTE | 2022-01-31 18:54 | RAD REPORT ---
EXAM DESCRIPTION: RAD - Chest Single View - 01/31/2022 6:44 pm CLINICAL HISTORY: CHEST PAIN Chest pain. COMPARISON: Chest Single View dated 12/24/2021; Chest Single View dated 10/09/2021; Chest Single View dated 09/29/2021; Chest Single View dated 05/29/2021 FINDINGS: Portable technique limits examination quality. The lungs are mildly emphysematous but grossly clear. The heart is moderately enlarged. No displaced fractures.Aortic atherosclerosis with sternotomy wires. IMPRESSION: No acute intrathoracic process suspected.
[2022-01-31 19:01] LABS: Potassium 3.8 mmol/L (3.5-5.1)
[2022-01-31] MEDS ORDERED: FENTANYL CITR 100 MCG/2 ML ONE ×2 (19:26→23:25)
--- NOTE | 2022-01-31 20:25 | RAD REPORT ---
EXAM DESCRIPTION: US - Extrem Venous W Compress Yves - 01/31/2022 8:13 pm CLINICAL HISTORY: SWELLING Bilateral leg edema and swelling. COMPARISON: <Comparisons> TECHNIQUE: Real-time sonographic interrogation of the left and right lower extremity deep venous sys tems was performed. FINDINGS: Normal compressibility, flow augmentation, phasic flow and spontaneous flow is identified in both the left and right lower extremity deep venous systems. IMPRESSION: No sonographic evidence of left or right lower extremity deep venous thrombosis.
[2022-01-31 20:36] LABS: Urine Blood 1+ (Negative); Urine Glucose Negative (Negative); Urine Protein Negative (Negative); Urine Specific Gravity 1.025 (1.005-1.030); Urine pH 6.5 (5.0-7.0)
[2022-01-31 20:54] LABS: Urine Mucus Slight /HPF (None Seen)
[2022-01-31] MEDS ORDERED: NA CHLORIDE 0.9% 500 ML ONE (20:58)
--- NOTE | 2022-01-31 21:13 | RAD REPORT ---
EXAM DESCRIPTION: CT - Chest For Pe Angio - 01/31/2022 9:03 pm CLINICAL HISTORY: Chest pain. chest pain COMPARISON: Chest For Pe Angio dated 03/07/2020 TECHNIQUE: CT angiogram of the pulmonary arteries was performed with MIP. All CT scans are performed using dose optimization technique as appropriate and may include automated exposure control or mA/KV adjustment according to patient size. FINDINGS: No evidence of pulmonary thromboembolism. Contrast opacification of thoracic aorta is limited, limiting assessment. There is heavy atherosclero sis seen of the thoracic aorta with aneurysmal dilatation of midthoracic descending aorta to 4.3 cm. The lungs are clear. No significant pericardial or pleural fluid. No concerning bony finding. Small hiatal hernia. IMPRESSION: No evidence of pulmonary thromboembolism. Heavy atherosclerosis of the thoracic aorta with 4.3 cm descending thoracic aortic aneurysm. Intralum inal assessment is very limited by lack of contrast within the aorta.
[2022-01-31 22:10] LABS: Urine Specific Gravity/Preg 1.025 (1.005-1.030)
--- NOTE | 2022-02-01 00:56 | EDPHYS ---
Physician Documentation [facility] Name: Michelle Saavedra Age: 66 yrs Sex: Female : 1955 Arrival Date: 01/31/2022 Time: 17:57 Bed 12 Private MD: Saurabh Dobson E ED Physician Gab Del Real HPI: 01/31 18:20 This 66 yrs old Female presents to ER via Ambulatory with complaints of Chest cp Pressure, Doesn't Feel Right, Abnormal Lab Results. 18:20 The patient or guardian reports chest pain that is located primarily in the anterior cp chest wall, bilaterally. 18:20 Onset: yesterday. The pain does not radiate. Associated signs and symptoms: Pertinent cp negatives: abdominal pain, diaphoresis, dizziness, lower extremity pain, lower extremity swelling, shortness of breath, syncope. The chest pain is described as a pressure. Duration: The patient or guardian reports a single episode, that is still ongoing, and unchanged. Patient reports she was referred to ED by pcp with concern for low hemoglobin. Patient reports history of anemia in the past and has had blood transfusion. Denies black stools, denies gross blood in stools. Reports chest pressure since yesterday and "not feeling right". Historical: - Allergies: 18:12 Morphine; ld1 - Home Meds: 18:12 Coumadin 1 mg Oral tab 1 tab once daily [Active]; ld1 - PMHx: 18:12 None; ld1 - PSHx: 18:12 None; ld1 - Immunization history:: Adult Immunizations up to date, Client reports receiving the 2nd dose of the Covid vaccine. - Social history:: Smoking status: Patient denies any tobacco usage or history of. Patient/guardian denies using alcohol. ROS: 18:25 Constitutional: Negative for body aches, chills, fever, poor PO intake. cp 18:25 Eyes: Negative for injury, pain, redness, and discharge. cp 18:25 ENT: Negative for drainage from ear(s), ear pain, sore throat, difficulty swallowing, difficulty handling secretions. 18:25 Cardiovascular: Positive for chest pressure, Negative for edema, palpitations. 18:25 Respiratory: Negative for cough, shortness of breath, wheezing. 18:25 Abdomen/GI: Negative for abdominal pain, nausea, vomiting, and diarrhea, black/tarry stool, rectal bleeding. 18:25 Back: Negative for pain at rest, pain with movement. 18:25 Neuro: Positive for weakness, Negative for altered mental status, headache, loss of consciousness, syncope. 18:25 All other systems are negative. Exam: 18:27 ECG was reviewed by the Attending Physician. cp 18:30 Constitutional: The patient appears in no acute distress, alert, awake, cp non-diaphoretic, non-toxic, well developed, well nourished, thin 18:30 Head/Face: Normocephalic, atraumatic. cp 18:30 Eyes: Periorbital structures: appear normal, Conjunctiva: normal, no exudate, no injection, Sclera: no appreciated abnormality, Lids and lashes: appear normal, bilaterally. 18:30 ENT: External ear(s): are unremarkable, Ear canal(s): are normal, clear, TM's: dullness, bilaterally, Nose: is normal, Mouth: Lips: moist, Oral mucosa: pink and intact, moist, Posterior pharynx: Airway: no evidence of obstruction, patent. 18:30 Neck: ROM/movement: is normal, is supple, without pain, no range of motions limitations. 18:30 Chest/axilla: Inspection: normal. 18:30 Cardiovascular: Rate: bradycardic, Rhythm: regular, Edema: is not appreciated, JVD: is not appreciated. 18:30 Respiratory: the patient does not display signs of respiratory distress, Respirations: normal, no use of accessory muscles, no retractions, labored breathing, is not present, Breath sounds: are clear throughout, no decreased breath sounds, no stridor, no wheezing. 18:30 Abdomen/GI: Inspection: abdomen appears normal, Palpation: soft, in all quadrants, mild abdominal tenderness, in the right lower quadrant and left lower quadrant, rebound tenderness, is not appreciated, involuntary guarding, is not appreciated. 18:30 Back: pain, that is moderate, ROM is painful, with all movement. 18:30 Skin: cellulitis, is not appreciated, no rash present. 18:30 Neuro: Orientation: to person, place \\T\\ time. Mentation: is normal, Motor: moves all fours, strength is normal. Vital Signs: 18:11 BP 163 / 64; Pulse 94; Resp 18; Temp 97.7(O); Pulse Ox 99% on R/A; Weight 46.27 kg; ld1 Height 5 ft. 3 in. (160.02 cm); Pain 9/10; 18:30 BP 127 / 66; Pulse 58; Resp 13; Pulse Ox 100% on R/A; em6 19:30 BP 135 / 62; Pulse 56; Resp 16; Pulse Ox 100% on R/A; em6 20:30 BP 152 / 42; Pulse 54; Resp 15; Pulse Ox 100% on R/A; em6 23:30 BP 134 / 56; Pulse 54; Resp 16; Pulse Ox 100% ; em6 02/01 01:17 BP 122 / 62; Pulse 60; Resp 16; Pulse Ox 100% on R/A; em6 01/31 18:11 Body Mass Index 18.07 (46.27 kg, 160.02 cm) ld1 01/31 23:30 notified provider of the vital signs before giving fentanyl. he approved to give em6 fentanyl MDM: 18:21 Patient medically screened. [facility] 02/01 00:55 Data reviewed: vital signs, nurses notes, lab test result(s), EKG, radiologic studies, cp CT scan, plain films. 00:55 Test interpretation: by ED physician or midlevel provider: ECG, plain radiologic cp studies. Counseling: I had a detailed discussion with the patient and/or guardian regarding: the historical points, exam findings, and any diagnostic results supporting the discharge/admit diagnosis, lab results, radiology results. Special discussion: Based on the patient's history, exam, and Dx evaluation, there is no indication for emergent intervention or inpatient Tx. It is understood by the patient/guardian that if the Sx's persist or worsen they need to return immediately for re-evaluation. ED course: Low suspicion for cardiac cause of symptoms. Anemia stable and not requiring blood transfusion at this time. Patient does not report that she was tested for low iron level and is not currently taking iron supplement. Recommend f/u with pcp for reevaluation of anemia. 01/31 18:14 Order name: Basic Metabolic Panel; Complete Time: 19:03 ld1 01/31 19:03 Interpretation: Normal except: GLUC 163; CRE 1.50; GFR 38; CA 8.3. cp 01/31 18:14 Order name: CBC with Diff; Complete Time: 19:03 ld1 01/31 19:04 Interpretation: Normal except: RBC 3.14; HGB 8.8; HCT 27.5; MCHC 31.8; RDW 16.8; cp EOSINOPHIL % 4.5; BASO% 1.5. 01/31 18:14 Order name: Troponin HS; Complete Time: 19:03 ld1 01/31 18:29 Order name: D-Dimer; Complete Time: 20:44 ld1 01/31 20:44 Interpretation: Abnormal: D-DIMER 1027. cp 01/31 19:06 Order name: Urine Microscopic Only; Complete Time: 21:46 cp 01/31 21:46 Interpretation: Reviewed. cp 01/31 20:36 Order name: Urine --Ancillary (enter results); Complete Time: 22:39 mw2 01/31 18:14 Order name: XRAY Chest (1 view); Complete Time: 19:03 ld1 01/31 19:06 Order name: US Extremity Venous W Compression Yves; Complete Time: 20:44 cp 01/31 20:36 Order name: Urine Dipstick-Ancillary; Complete Time: 20:44 EDMS 01/31 20:45 Order name: CT Chest For PE Angio; Complete Time: 21:46 cp 01/31 23:04 Order name: Troponin High Sensitivity; Complete Time: 00:27 cp 01/31 18:14 Order name: EKG; Complete Time: 18:15 ld1 01/31 18:14 Order name: EKG - Nurse/Tech; Complete Time: 18:16 ld1 01/31 18:14 Order name: IV Saline Lock; Complete Time: 18:24 ld1 01/31 18:14 Order name: Labs collected and sent; Complete Time: 18:24 ld1 01/31 18:14 Order name: O2 Per Protocol; Complete Time: 18:16 ld1 01/31 18:14 Order name: O2 Sat Monitoring; Complete Time: 18:16 ld1 01/31 19:06 Order name: Urine Dipstick-Ancillary (obtain specimen); Complete Time: 20:36 cp EC/19 18:27 Rate is 59 beats/min. Rhythm is regular. AK interval is normal. QRS interval is normal. cp QT interval is normal. T waves are Inverted in lead aVR. Interpreted by me. Reviewed by me. Administered Medications: 19:48 Drug: fentaNYL (PF) 25 mcg Route: IVP; Site: right antecubital; em6 20:39 Follow up: Response: No adverse reaction; RASS: Alert and Calm (0) em6 21:19 Drug: NS 0.9% 500 ml Route: IV; Rate: bolus; Site: right antecubital; em6 22:30 Follow up: Response: No adverse reaction; IV Status: Completed infusion; IV Intake: em6 500ml 23:36 Drug: fentaNYL (PF) 25 mcg Route: IVP; Site: right antecubital; em6 Disposition Summary: 02/01/22 00:55 Discharge Ordered Location: Home cp Problem: new cp Symptoms: have improved cp Condition: Stable cp Diagnosis - Chest pain, unspecified cp - Anemia, unspecified cp Followup: cp - With: Private Physician - When: 1 - 2 days - Reason: Recheck today's complaints Discharge Instructions: - Discharge Summary Sheet cp - Anemia cp - Nonspecific Chest Pain, Adult cp Forms: - Medication Reconciliation Form cp - Thank You Letter cp - Antibiotic Education cp - Prescription Opioid Use cp Signatures: Dispatcher [employer] EDMS Gab Del Real MD MD cha Page, Corey PA PA cp Leticia Carrera RN RN ld1 Leonor Villalobos RN RN em6 Corrections: (The following items were deleted from the chart) 19:03 19:03 Normal except: GLUC 163; CRE 1.50; GFR 38. cp cp 02/01 23:31 01/31 18:25 Abdomen/GI: Negative for abdominal pain, nausea, vomiting, and diarrhea, cp cp
--- NOTE | 2022-02-01 00:56 | ER ---
Nurse's Notes [facility] Name: Michelle Saavedra Age: 66 yrs Sex: Female : 1955 Arrival Date: 01/31/2022 Time: 17:57 Bed 12 Private MD: Saurabh Dobson E Diagnosis: Chest pain, unspecified;Anemia, unspecified Presentation: 01/31 18:11 Chief complaint: Patient states: Chest pressure and feeling disoriented since ld1 yesterday. Family doctor reports HGB low - possible need for transfussion. Coronavirus screen: At this time, the client does not indicate any symptoms associated with coronavirus-19. Ebola Screen: No symptoms or risks identified at this time. Initial Sepsis Screen: Does the patient meet any 2 criteria? No. Patient's initial sepsis screen is negative. Does the patient have a suspected source of infection? No. Patient's initial sepsis screen is negative. Risk Assessment: Do you want to hurt yourself or someone else? Patient reports no desire to harm self or others. Onset of symptoms was January 31, 2022. 18:11 Method Of Arrival: Ambulatory ld1 18:11 Acuity: JAKUB 3 ld1 Triage Assessment: 18:12 General: Appears in no apparent distress. comfortable, Behavior is calm, cooperative, ld1 appropriate for age. Pain: Complains of pain in chest Pain does not radiate. Pain currently is 9 out of 10 on a pain scale. Quality of pain is described as pressure, throbbing, Pain began 1 day ago. Is continuous. EENT: No signs and/or symptoms were reported regarding the EENT system. Neuro: Level of Consciousness is awake, alert, obeys commands, Oriented to person, place, time, situation, Appropriate for age. Cardiovascular: Capillary refill < 3 seconds Patient's skin is warm and dry. Chest pain is described as. Respiratory: Airway is patent Respiratory effort is even, unlabored. GI: Abdomen is flat, non-distended. : No signs and/or symptoms were reported regarding the genitourinary system. Derm: No signs and/or symptoms reported regarding the dermatologic system. Musculoskeletal: No signs and/or symptoms reported regarding the musculoskeletal system. Historical: - Allergies: 18:12 Morphine; ld1 - Home Meds: 18:12 Coumadin 1 mg Oral tab 1 tab once daily [Active]; ld1 - PMHx: 18:12 None; ld1 - PSHx: 18:12 None; ld1 - Immunization history:: Adult Immunizations up to date, Client reports receiving the 2nd dose of the Covid vaccine. - Social history:: Smoking status: Patient denies any tobacco usage or history of. Patient/guardian denies using alcohol. Screenin:30 Abuse screen: Denies threats or abuse. Nutritional screening: No deficits noted. em6 Tuberculosis screening: No symptoms or risk factors identified. Fall Risk IV access (20 points). Total Fay Fall Scale indicates No Risk (0-24 pts). Assessment: 18:30 Reassessment: see triage assessment. Pain: Complains of pain in chest Quality of pain em6 is described as pressure. 19:30 Reassessment: Patient appears in no apparent distress at this time. Patient and/or em6 family updated on plan of care and expected duration. Pain level reassessed. Patient is alert, oriented x 3, equal unlabored respirations, skin warm/dry/pink. 20:30 Reassessment: Patient appears in no apparent distress at this time. Patient and/or em6 family updated on plan of care and expected duration. Pain level reassessed. Patient is alert, oriented x 3, equal unlabored respirations, skin warm/dry/pink. 21:30 Reassessment: Patient appears in no apparent distress at this time. Patient and/or em6 family updated on plan of care and expected duration. Pain level reassessed. Patient is alert, oriented x 3, equal unlabored respirations, skin warm/dry/pink. 22:30 Reassessment: Patient appears in no apparent distress at this time. Patient and/or em6 family updated on plan of care and expected duration. Pain level reassessed. Patient is alert, oriented x 3, equal unlabored respirations, skin warm/dry/pink. 23:25 Reassessment: Patient and/or family updated on plan of care and expected duration. Pain em6 level reassessed. Patient is alert, oriented x 3, equal unlabored respirations, skin warm/dry/pink. patient states back pain/ chest pressure. notified provider new order given. 02/01 01:17 Reassessment: Patient appears in no apparent distress at this time. Patient and/or em6 family updated on plan of care and expected duration. Pain level reassessed. Patient is alert, oriented x 3, equal unlabored respirations, skin warm/dry/pink. Vital Signs: 01/31 18:11 BP 163 / 64; Pulse 94; Resp 18; Temp 97.7(O); Pulse Ox 99% on R/A; Weight 46.27 kg; ld1 Height 5 ft. 3 in. (160.02 cm); Pain 9/10; 18:30 BP 127 / 66; Pulse 58; Resp 13; Pulse Ox 100% on R/A; em6 19:30 BP 135 / 62; Pulse 56; Resp 16; Pulse Ox 100% on R/A; em6 20:30 BP 152 / 42; Pulse 54; Resp 15; Pulse Ox 100% on R/A; em6 23:30 BP 134 / 56; Pulse 54; Resp 16; Pulse Ox 100% ; em6 02/01 01:17 BP 122 / 62; Pulse 60; Resp 16; Pulse Ox 100% on R/A; em6 01/31 18:11 Body Mass Index 18.07 (46.27 kg, 160.02 cm) ld1 01/31 23:30 notified provider of the vital signs before giving fentanyl. he approved to give em6 fentanyl ED Course: 17:57 Patient arrived in ED. am2 17:57 Saurabh Dobson MD is Private Physician. am2 18:12 Triage completed. ld1 18:12 Arm band placed on right wrist. ld1 18:19 [facility] cp 18:19 Gab Del Real MD is Attending Physician. cp 18:24 Inserted saline lock: 20 gauge in left antecubital area, using aseptic technique. Blood ld1 collected. 18:30 Bed in low position. Call light in reach. Side rails up X2. panel monitor on. Pulse em6 ox on. NIBP on. Warm blanket given. 18:39 Leonor Villalobos, RN is Primary Nurse. em6 18:46 XRAY Chest (1 view) In Process Unspecified. EDMS 20:12 US Extremity Venous W Compression Yves In Process Unspecified. EDMS 20:38 Patient maintains SpO2 saturation greater than 95% on room air. em6 20:39 Urine Microscopic Only Sent. em6 21:05 CT Chest For PE Angio In Process Unspecified. EDMS 23:36 Troponin High Sensitivity Sent. em6 Administered Medications: 19:48 Drug: fentaNYL (PF) 25 mcg Route: IVP; Site: right antecubital; em6 20:39 Follow up: Response: No adverse reaction; RASS: Alert and Calm (0) em6 21:19 Drug: NS 0.9% 500 ml Route: IV; Rate: bolus; Site: right antecubital; em6 22:30 Follow up: Response: No adverse reaction; IV Status: Completed infusion; IV Intake: em6 500ml 23:36 Drug: fentaNYL (PF) 25 mcg Route: IVP; Site: right antecubital; em6 Intake: 22:30 IV: 500ml; Total: 500ml. em6 Outcome: 02/01 00:55 Discharge ordered by . carlos 02:00 Patient left the ED. kl Signatures: Dispatcher [employer] EDMS Meaghan Cyr RN RN Gab Stafford PA PA cp Moreno, Amanda am2 Leticia Carrera RN RN ld1 Leonor Villalobos RN RN em6 Corrections: (The following items were deleted from the chart) 01/31 21:06 20:30 BP 152 / 42; Pulse 100bpm; Resp 15bpm; Pulse Ox 100% RA; em6 em6
[2022-02-01 02:06] VITALS: TEMP 97.7
[2022-02-01 02:07] VITALS: O2SAT 100
[2022-02-01 02:12] VITALS: BP 122/62
--- NOTE | 2022-02-01 16:15 | EKG ---
Test Date: 2022-01-31 Test Time: 18:17:49 Studio Designer: RAÚL MEASUREMENT RESULTS: Intervals: Rate: 60 AL: 206 QRSD: 90 QT: 474 QTc: 474 [place]: P: 73 AL: 206 QRS: 84 T: 38 INTERPRETIVE STATEMENTS: Normal sinus rhythm ST abnormality, possible digitalis effect Abnormal ECG Compared to ECG 12/24/2021 20:58:33 Atrial fibrillation no longer present Possible ischemia no longer present ST (T wave) deviation still present Electronically Signed On 02-01-22 16:14:15 CDT by Jam Bolanos
--- NOTE | 2022-02-03 16:59 | EKG ---
Test Date: 2022-01-31 Test Time: 18:20:47 Buffer Copper: RAÚL MEASUREMENT RESULTS: Intervals: Rate: 59 DC: 192 QRSD: 86 QT: 438 QTc: 433 [place]: P: 98 DC: 192 QRS: 82 T: 54 INTERPRETIVE STATEMENTS: Sinus bradycardia ST abnormality, possible digitalis effect Abnormal ECG Compared to ECG 01/31/2022 18:17:49 Sinus rhythm no longer present ST (T wave) deviation still present Electronically Signed On 02-03-22 16:55:00 CDT by Jam Bolanos
== END 2022-02-01 02:00 | disposition home or self-care (01) ==
LOC: ER 17:54
DX: R07.89 Other chest pain (principal); D64.9 Anemia, unspecified; R53.1 Weakness; Z88.5 Allergy status to narcotic agent; Z79.01 Long term (current) use of anticoagulants
CPT/HCPCS: 96361; 93005 ×2; 85025; 80048; 36415; 81025; 85379; 84484 ×2; 71275; 71045; 93970; 96374; 99285; Q9967; J3010 ×2; J7040; 81003; 81015

== ENCOUNTER 2022-03-25 19:46 | Inpatient (IN) | payer OTHER ==
--- OUTSIDE RECORDS SUMMARY | 2022-03-25 19:53 | XMS REPORT | Continuity of Care Document ---
:1955 Author Organization [facility] t Address [address] [place] [address] Care Team Providers Name Role Phone Saurabh Dobson Primary Care Physician REBECA HODGE Attending Clinician Unavailable REBECA HODGE Attending Clinician Unavailable Saurabh Dobson Attending Clinician Unavailable JAMAICA POMPA Attending Clinician Unavailable WAYNE RABAGO Attending Clinician Unavailable Wayne Rabago MD Attending Clinician Doctor Unassigned, [place] Attending Clinician Unavailable Jamaica Pompa MD Attending Clinician 1, [facility] Attending Clinician Unavailable Pob, [facility] Main Attending Clinician Unavailable Yolande Love MD Attending Clinician YOLANDE LOVE Attending Clinician Unavailable Georgie Gamez RN Attending Clinician Unavailable Josemanuel LOVELL, Carmen Attending Clinician Ricky RODRÍGUEZ Attending Clinician Unavailable Ricky Ibarra [...] Clinician Unavailable WAYNE RABAGO Admitting Clinician Unavailable REBECA HODGE Admitting Clinician Unavailable CALEB HICKS Admitting Clinician Unavailable Caleb Hicks MD Admitting Clinician JENNIFER LO Admitting Clinician Unavailable Jennifer Lo MD Admitting Clinician Payers Payer Name Policy Type Policy Number Effective Date Expiration Date S alfonso [facility] DUAL [id number] 2020 00:00:00 COMP HMO D SNP [facility] [id number] 2013 00:00:00 PLUS Problems Condition Condition Condition Status Onset Resolution Last Treating Co mments Source Name Details Category Date Date Treatment Clinician Date Atrial Atrial Disease Active [facility] fibrillati fibrillati 8-11 it y of on on 00:00: [place] [address] Medical Branch E44.0 E44.0 Disease Active 2020-04 [facility] Moderate Moderate 1-19 ity of protein protein 00:00: [place] calorie calorie 00 Medical malnutriti malnutriti Br anch on on Other Other Disease Active 2020-04 [facility] chest pain chest pain 1-19 it y of 00:00: [place] [address] Medical Branch Chest pain Chest pain Disease Active 2020-04 U nivers 1-17 ity of 00:00: [place] [address] Medical Branch Elevated Elevated Disease Active 2020-04 Unive rs brain brain 0-24 ity of natriureti natriureti 00:00[place] c peptide c peptide 00 Medi tyrone (BNP) (BNP) Branch level level Lab test Lab test Disease Active 2020-04 Unive rs positive positive 0-24 ity of for for 00:00: [place] detection detection 00 Medi tyrone of of [...] 8-20 it y of emia emia 00:00: [place] 00 Medical Branch Essential Essential Disease Active Uni vers hypertensi hypertensi 8-20 it y of on on 00:00: [place] [facility] Anticoagul Anticoagul Disease Active U nivers ated ated 8-20 ity of 00:00: [place] [facility] Coronary Coronary Disease Active Unive rs artery artery 8-20 ity of disease disease 00:00: [place] involving involving 00 Medi tyrone torres martinez torres martinez Branch coronary coronary artery of artery of torres martinez torres martinez 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 2-20 ity of disease disease 00:00: [place] involving involving 00 Medi tyrone torres martinez tor[facility] mart[facility] Branch heart heart without without angina angina pectoris, pectoris, unspecifie unspecifie d vessel d vessel or lesion or lesion type type Atrial Atrial Disease Active Univers flutter flutter 4-03 ity of 00:00: [place] 00 Medical Branch Aortic Aortic Disease Active 2015-04 [facility] valve valve 0-28 ity of replaced replaced 00:00: [place] [Z95.2] [Z95.2] 00 Medical Branch Chest pain [...] to Breath 1-15 ity of adverse 00:00: [place] reaction 00 Medical s to Branch drug MORPHINE DRUG Active High SOB 2006- Univers INGREDI 1-15 ity of 00:00: [place] 00 Medical Branch Social History Social Habit Start Date Stop Date Quantity Comments Source Exposure to 2022-02-18 2022-02-28 Not sure University of SARS-CoV-2 00:00:00 12:57:00 [place] Medical (event) Branch Alcohol intake 2021-11-23 2021-11-23 Current drinker Unive rsity of 00:00:00 00:00:00 of alcohol [facility] (finding) [place] Tobacco use and 2017-06-04 2017-06-04 Smokeless tobacco Un iversity of exposure 00:00:00 00:00:00 non-user [facility] Sex Ass[birth year] Universit y of 00:00:00 00:00:00 [facility] Smoking Status Start Date Stop Date Source Never smoked tobacco [facility] Medications Ordered Filled Start Stop Current Ordering Indication Dosage Frequency Signature Comments Components Source Medication Medication Date Date Medication? Clinician (SIG) Name Name warfarin 2021-04 Yes [id number] 1mg Take 1 Univers mg tablet 2-01 tablet by ity o f 00:00: mouth [place] 00 every Medical evening. Branch Alternate take 1mg x3 days, then 2mg x 4 days warfarin 2021-04 Yes [id number] 1mg Take 1 Univers mg tablet 2-01 tablet by ity o f 00:00: mouth [place] 00 every Medical evening. Branch Alternate take 1mg x3 days, then 2mg x 4 days dofetilide 2021-04 Yes [id number] 125ug Take 1 Univers 125 mcg 2-01 capsule by ity of capsule 00:00: mouth [place] 00 every 12 Medical (twelve) Branch hours. warfarin 2021-04 Yes [id number] 1mg Take 1 Univers mg tablet 2-01 tablet by ity o f 00:00: mouth [place] 00 every Medical evening. Branch Alternate take 1mg x3 days, then 2mg x 4 days dofetilide 2021-04 Yes [id number] 125ug Take 1 Univers 125 mcg 2-01 capsule by ity of capsule 00:00: mouth [place] 00 every 12 Medical (twelve) Branch hours. warfarin 2021-04 Yes [id number] 1mg Take 1 Univers mg tablet 1-01 tablet by ity o f 00:00: mouth [place] 00 every Medical evening. Branch Alternate take 1mg x4 days, then 2mg x 3 days warfarin 1 2021-04 Yes [id number] 1mg Take 1 Univers mg tablet 1-01 tablet by ity o f 00:00: mouth [place] 00 every Medical evening. Branch Alternate take 1mg x4 days, then 2mg x 3 days warfarin 2021-04 Yes [id number] 1mg Take 1 Univers mg tablet 1-01 tablet by ity o f 00:00: mouth [place] 00 every Medical evening. Branch Alternate take 1mg x4 days, then 2mg x 3 days warfarin 2021-04 Yes [id number] 1mg Take 1 Univers mg tablet 1-01 tablet by ity o f 00:00: mouth [place] 00 every Medical evening. Branch Alternate take 1mg x4 days, then 2mg x 3 days warfarin 2021-04 Yes [id number] 1mg Take 1 Univers mg tablet 1-01 tablet by ity o f 00:00: mouth [place] 00 every Medical evening. Branch Alternate take 1mg x4 days, then 2mg x 3 days warfarin 2021-04 Yes [id number] 1mg Take 1 Univers mg tablet 1-01 tablet by ity o f 00:00: mouth [place] 00 every Medical evening. Branch Alternate take 1mg x4 days, then 2mg x 3 days warfarin 2021-04 Yes [id number] 1mg Take 1 Univers mg tablet 1-01 tablet by ity o f 00:00: mouth [place] 00 every Medical evening. Branch Alternate take 1mg x4 days, then 2mg x 3 days warfarin 2021-04 Yes [id number] 1mg Take 1 Univers mg tablet 1-01 tablet by ity o f 00:00: mouth [place] 00 every Medical evening. Branch Alternate take 1mg x4 days, then 2mg x 3 days warfarin 2021-04 Yes [id number] 1mg Take 1 Univers mg tablet 1-01 tablet by ity o f 00:00: mouth [place] 00 every Medical evening. Branch Alternate take 1mg x4 days, then 2mg x 3 days warfarin 2021-04 Yes [id number] 1mg Take 1 Univers mg tablet 1-01 tablet by ity o f 00:00: mouth [place] 00 every Medical evening. Branch Alternate take 1mg x4 days, then 2mg x 3 days warfarin 2021-04 Yes [id number] 1mg Take 1 Univers mg tablet 1-01 tablet by ity o f 00:00: mouth [place] 00 every Medical evening. Branch Alternate take 1mg x4 days, then 2mg x 3 days warfarin 2021-04 [id number] 1mg Take 1 Univers mg tablet 04-15 tablet by ity of 00:00: 00:00 mouth [place] 00 :00 every Medical evening. Branch Alternate take 1mg x4 days, then 2mg x 3 days warfarin 2021-04 Yes [id number] 1mg Take 1 Univers mg tablet 0-17 tablet by ity o f 00:00: mouth [place] 00 every Medical evening. Branch Alternate take 1mg x4 days, then 2mg x 3 days warfarin 2021-04- No [id number] 1mg Take 1 Univers mg tablet 0-17 02-13 tablet by ity of 00:00: 00:00 mouth [place] 00 :00 every Medical evening. Branch Alternate take 1mg x4 days, then 2mg x 3 days ezetimibe 2022-0 Yes 10mg Take 1 Univer [...] s 00 the Medical morning. Branch warfarin 1 0 Yes [id number] 1mg Take 1 Univers mg tablet 8-24 tablet by ity o f 00:00: mouth [place] 00 every Medical evening. Branch Alternate take 1mg x2days, then 2mg x 1 day warfarin 1 0 Yes [id number] 1mg Take 1 Univers mg tablet 8-24 tablet by ity o f 00:00: mouth [place] 00 every Medical evening. Branch Alternate take 1mg x2days, then 2mg x 1 day warfarin 1 2021-0 Yes [id number] 1mg Take 1 Univers mg tablet 8-24 tablet by ity o f 00:00: mouth [place] 00 every Medical evening. Branch Alternate take 1mg x2days, then 2mg x 1 day warfarin 1 2021-0 Yes [id number] 1mg Take 1 Univers mg tablet 8-24 tablet by ity o f 00:00: mouth [place] 00 every Medical evening. Branch Alternate take 1mg x2days, then 2mg x 1 day warfarin 1 2021-0 Yes [id number] 1mg Take 1 Univers mg tablet 8-24 tablet by ity o f 00:00: mouth [place] 00 every Medical evening. Branch Alternate take 1mg x2days, then 2mg x 1 day warfarin 1 2021-0 Yes [id number] 1mg Take 1 Univers mg tablet 8-24 tablet by ity o f 00:00: mouth [place] 00 every Medical evening. Branch Alternate take 1mg x2days, then 2mg x 1 day warfarin 1 Yes [id number] 1mg Take 1 Univers mg tablet 8-24 tablet by ity o f 00:00: mouth [place] 00 every Medical evening. Branch Alternate take 1mg x2days, then 2mg x 1 day warfarin Yes [id number] 1mg Take 1 Univers mg tablet 8-24 tablet by ity o f 00:00: mouth [place] 00 every Medical evening. Branch Alternate take 1mg x2days, then 2mg x 1 day warfarin 1 Yes [id number] 1mg Take 1 Univers mg tablet 8-24 tablet by ity o f 00:00: mouth [place] 00 every Medical evening. Branch Alternate take 1mg x2days, then 2mg x 1 day warfarin 1 Yes [id number] 1mg Take 1 Univers mg tablet 8-24 tablet by ity o f 00:00: mouth [place] 00 every Medical evening. Branch Alternate take 1mg x2days, then 2mg x 1 day warfarin Yes [id number] 1mg Take 1 Univers mg tablet 8-24 tablet by ity o f 00:00: mouth [place] 00 every Medical evening. Branch Alternate take 1mg x2days, then 2mg x 1 day warfarin Yes [id number] 1mg Take 1 Univers mg tablet 8-24 tablet by ity o f 00:00: mouth [place] 00 every Medical evening. Branch Alternate take 1mg x2days, then 2mg x 1 day warfarin Yes [id number] 1mg Take 1 Univers mg tablet 8-24 tablet by ity o f 00:00: mouth [place] 00 every Medical evening. Branch Alternate take 1mg x2days, then 2mg x 1 day warfarin 1 2021- No [id number] 1mg Take 1 Univers mg tablet 8-24 10-17 tablet by ity of 00:00: 00:00 mouth [place] 00 :00 every Medical evening. Branch Alternate take 1mg x2days, then 2mg x 1 day warfarin 1 2021- No [id number] 2mg Take 2 Univers mg tablet 8-23 08-24 tablets by ity of 00:00: 00:00 mouth [place] 00 :00 every Medical evening. Branch dofetilide 2021- No [id number] 125ug Take 1 Univers 125 mcg 8-19 08-27 capsule by ity o f capsule 00:00: 04:59 mouth [place] 00 :00 every 12 Medical (twelve) Branch hours for 7 days. dofetilide 2021- No [id number] 125ug Take 1 Univers 125 mcg 8-19 08-27 capsule by ity o f capsule 00:00: 04:59 mouth [place] 00 :00 every 12 Medical (twelve) Branch hours for 7 days. dofetilide 2021- No [id number] 125ug Take 1 Univers 125 mcg 8-17 11-16 capsule by ity o f capsule 00:00: 05:59 mouth [place] 00 :00 every 12 Medical (twelve) Branch hours for 90 days. dofetilide 2021- No [id number] 125ug Take 1 Univers 125 mcg 8-17 11-16 capsule by ity o f capsule 00:00: 05:59 mouth [place] 00 :00 every 12 Medical (twelve) Branch hours for 90 days. dofetilide 2021- No [id number] 125ug Take 1 Univers 125 mcg 8-17 11-16 capsule by ity o f capsule 00:00: 05:59 mouth [place] 00 :00 every 12 Medical (twelve) Branch hours for 90 days. dofetilide 2021- No [id number] 125ug Take 1 Univers 125 mcg 8-17 11-16 capsule by ity o f capsule 00:00: 05:59 mouth [place] 00 :00 every 12 Medical (twelve) Branch hours for 90 days. dofetilide 2021- No [id number] 125ug Take 1 Univers 125 mcg 8-17 11-16 capsule by ity o f capsule 00:00: 05:59 mouth [place] 00 :00 every 12 Medical (twelve) Branch hours for 90 days. dofetilide 2021- No [id number] 125ug Take 1 Univers 125 mcg 8-17 11-16 capsule by ity o f capsule 00:00: 05:59 mouth [place] 00 :00 every 12 Medical (twelve) Branch hours for 90 days. dofetilide 2021- No [id number] 125ug Take 1 Univers 125 mcg 8-17 11-16 capsule by ity o f capsule 00:00: 05:59 mouth [place] 00 :00 every 12 Medical (twelve) Branch hours for 90 days. dofetilide 2021- No [id number] 125ug Take 1 Univers 125 mcg 8-17 11-16 capsule by ity o f capsule 00:00: 05:59 mouth [place] 00 :00 every 12 Medical (twelve) Branch hours for 90 days. dofetilide 2021- No [id number] 125ug Take 1 Univers 125 mcg 8-17 11-16 capsule by ity o f capsule 00:00: 05:59 mouth [place] 00 :00 every 12 Medical (twelve) Branch hours for 90 days. dofetilide 2021- No [id number] 125ug Take 1 Univers 125 mcg 8-17 11-16 capsule by ity o f capsule 00:00: 05:59 mouth [place] 00 :00 every 12 Medical (twelve) Branch hours for 90 days. dofetilide 2021- No [id number] 125ug Take 1 Univers 125 mcg 8-17 11-16 capsule by ity o f capsule 00:00: 05:59 mouth [place] 00 :00 every 12 Medical (twelve) Branch hours for 90 days. dofetilide 2021- No [id number] 125ug Take 1 Univers 125 mcg 8-17 11-16 capsule by ity o f capsule 00:00: 05:59 mouth [place] 00 :00 every 12 Medical (twelve) Branch hours for 90 days. dofetilide 2021- No [id number] 125ug Take 1 Univers 125 mcg 8-17 11-16 capsule by ity o f capsule 00:00: 05:59 mouth [place] 00 :00 every 12 Medical (twelve) Branch hours for 90 days. dofetilide 2021- No [id number] 125ug Take 1 Univers 125 mcg 8-17 11-16 capsule by ity o f capsule 00:00: 05:59 mouth [place] 00 :00 every 12 Medical (twelve) Branch hours for 90 days. dofetilide 2021- No [id number] 125ug Take 1 Univers 125 mcg 8-17 11-16 capsule by ity o f capsule 00:00: 05:59 mouth [place] 00 :00 every 12 Medical (twelve) Branch hours for 90 days. dofetilide 2021-2- No [id number] 125ug Take 1 Univers 125 mcg 8-17 11-16 capsule by ity o f capsule 00:00: 05:59 mouth [place] 00 :00 every 12 Medical (twelve) Branch hours for 90 days. dofetilide 2021-0 2- No [id number] 125ug Take 1 Univers 125 mcg 8-17 11-16 capsule by ity o f capsule 00:00: 05:59 mouth [place] 00 :00 every 12 Medical (twelve) Branch hours for 90 days. dofetilide 2021-0 2- No [id number] 125ug Take 1 Univers 125 mcg 8-17 11-16 capsule by ity o f capsule 00:00: 05:59 mouth [place] 00 :00 every 12 Medical (twelve) Branch hours for 90 days. dofetilide 2021-2- No [id number] 125ug Take 1 Univers 125 mcg 8-17 11-16 capsule by ity o f capsule 00:00: 05:59 mouth [place] 00 :00 every 12 Medical (twelve) Branch hours for 90 days. dofetilide 2021-2- No [id number] 125ug Take 1 Univers 125 mcg 8-17 11-16 capsule by ity o f capsule 00:00: 05:59 mouth [place] 00 :00 every 12 Medical (twelve) Branch hours for 90 days. atorvastati Yes 80mg Take 1 Univ ers n 80 mg 7-12 tablet by ity of tablet 00:00: mouth at [place] [address] bedtime. Medical Branch atorvastati 0 Yes 80mg Take 1 Univ ers n 80 mg 7-12 tablet by ity of tablet 00:00: mouth at [place] [address] bedtime. Medical Branch atorvastati 0 Yes 80mg Take 1 Univ ers n 80 mg 7-12 tablet by ity of tablet 00:00: mouth at [place] [address] bedtime. Medical Branch atorvastati 0 Yes 80mg Take 1 Univ ers n 80 mg 7-12 tablet by ity of tablet 00:00: mouth at [place] [address] bedtime. Medical Branch atorvastati 0 Yes 80mg Take 1 Univ ers n 80 mg 7-12 tablet by ity of tablet 00:00: mouth at [place] [address] bedtime. Medical Branch atorvastati 2022-0 Yes 80mg Take 1 Univ ers n 80 mg 7-12 tablet by ity of tablet 00:00: mouth at [place] [address] bedtime. Medical Branch atorvastati 2-0 Yes 80mg Take 1 Univ ers n 80 mg 7-12 tablet by ity of tablet 00:00: mouth at [place] [address] bedtime. Medical Branch atorvastati 2022-0 Yes 80mg Take 1 Univ ers n 80 mg 7-12 tablet by ity of tablet 00:00: mouth at [place] bedtime. Medical Branch atorvastati 2-0 Yes 80mg Take 1 Univ ers n 80 mg 7-12 tablet by ity of tablet 00:00: mouth at [place] [address] bedtime. Medical Branch atorvastati 2-0 Yes 80mg Take 1 Univ ers n 80 mg 7-12 tablet by ity of tablet 00:00: mouth at [place] [address] bedtime. Medical Branch atorvastati 2-0 Yes 80mg Take 1 Univ ers n 80 mg 7-12 tablet by ity of tablet 00:00: mouth at [place] [address] bedtime. Medical Branch atorvastati 2-0 Yes 80mg Take 1 Univ ers n 80 mg 7-12 tablet by ity of tablet 00:00: mouth at [place] [address] bedtime. Medical Branch atorvastati 2-0 Yes 80mg Take 1 Univ ers n 80 mg 7-12 tablet by ity of tablet 00:00: mouth at [place] [address] bedtime. Medical Branch atorvastati 2022-0 Yes 80mg Take 1 Univ ers n 80 mg 7-12 tablet by ity of tablet 00:00: mouth at [place] [address] bedtime. Medical Branch atorvastati 2022-0 Yes 80mg Take 1 Univ ers n 80 mg 7-12 tablet by ity of tablet 00:00: mouth at [place] [address] bedtime. Medical Branch atorvastati 2022-0 Yes 80mg Take 1 Univ ers n 80 mg 7-12 tablet by ity of tablet 00:00: mouth at [place] [address] bedtime. Medical Branch atorvastati 2022-0 Yes 80mg Take 1 Univ ers n 80 mg 7-12 tablet by ity of tablet 00:00: mouth at [place] [address] bedtime. Medical Branch atorvastati 2022-0 Yes 80mg Take 1 Univ ers n 80 mg 7-12 tablet by ity of tablet 00:00: mouth at [place] [address] bedtime. Medical Branch atorvastati 2-0 Yes 80mg Take 1 Univ ers n 80 mg 7-12 tablet by ity of tablet 00:00: mouth at [place] [address] bedtime. Medical Branch atorvastati 2021-0 Yes 80mg Take 1 Univ ers n 80 mg 7-12 tablet by ity of tablet 00:00: mouth at [place] [address] bedtime. Medical Branch atorvastati 2021-0 Yes 80mg Take 1 Univ ers n 80 mg 7-12 tablet by ity of tablet 00:00: mouth at [place] [address] bedtime. Medical Branch atorvastati 2021-0 Yes 80mg Take 1 Univ ers n 80 mg 7-12 tablet by ity of tablet 00:00: mouth at [place] [address] bedtime. Medical Branch atorvastati 2021-0 Yes 80mg Take 1 Univ ers n 80 mg 7-12 tablet by ity of tablet 00:00: mouth at [place] [address] bedtime. Medical Branch atorvastati 2021-0 Yes 80mg Take 1 Univ ers n 80 mg 7-12 tablet by ity of tablet 00:00: mouth at [place] [address] bedtime. Medical Branch atorvastati 2021-0 Yes 80mg Take 1 Univ ers n 80 mg 7-12 tablet by ity of tablet 00:00: mouth at [place] [address] bedtime. Medical Branch atorvastati 2-0 Yes 80mg Take 1 Univ ers n 80 mg 7-12 tablet by ity of tablet 00:00: mouth at [place] [address] bedtime. Medical Branch atorvastati 2-0 Yes 80mg Take 1 Univ ers n 80 mg 7-12 tablet by ity of tablet 00:00: mouth at [place] [address] bedtime. Medical Branch atorvastati 2-0 Yes 80mg Take 1 Univ ers n 80 mg 7-12 tablet by ity of tablet 00:00: mouth at [place] [address] bedtime. Medical Branch atorvastati 2-0 Yes 80mg Take 1 Univ ers n 80 mg 7-12 tablet by ity of tablet 00:00: mouth at [place] [address] bedtime. Medical Branch ezetimibe 2-0 Yes 10mg Take 1 Univer s (ZETIA) 10 5-20 tablet by ity of mg tablet 00:00: mouth [place] 00 daily. Medical Branch ezetimibe 0 Yes [...] mg tablet 00:00: mouth [place] 00 daily. [facility] Branch ezetimibe 2021-0 Yes 10mg Take 1 Univer s (ZETIA) 10 5-20 tablet by ity of mg tablet 00:00: mouth [place] 00 daily. [facility] Branch ezetimibe 0 Yes 10mg Take 1 Univer s (ZETIA) 10 5-20 tablet by ity of mg tablet 00:00: mouth [place] 00 daily. [facility] Branch ezetimibe 2021- No 10mg Take 1 Unive rs (ZETIA) 10 5-20 09-02 tablet by ity of mg tablet 00:00: 00:00 mouth [place] 00 :00 daily. Medical Branch furosemide 2021-0 Yes [id number] 40mg Take 2 Univers 20 mg 2-16 02 tablets by ity of tablet 00:00: mouth [place] 00 daily. Medical Branch furosemide 2021-0 Yes [id number] 40mg Take 2 Univers 20 mg 2-16 02 tablets by ity of tablet 00:00: mouth [place] 00 daily. Medical Branch furosemide 2021-0 Yes [id number] 40mg Take 2 Univers 20 mg 2-16 02 tablets by ity of tablet 00:00: mouth [place] 00 daily. Medical Branch furosemide 2021-0 Yes [id number] 40mg Take 2 Univers 20 mg 2-16 02 tablets by ity of tablet 00:00: mouth [place] 00 daily. [facility] Branch furosemide 2021-0 Yes [id number] 40mg Take 2 Univers 20 mg 2-16 02 tablets by ity of tablet 00:00: mouth [place] 00 daily. [facility] Branch furosemide 2021-0 Yes [id number] 40mg Take 2 Univers 20 mg 2-16 02 tablets by ity of tablet 00:00: mouth [place] 00 daily. Medical Branch furosemide 2021-0 Yes [id number] 40mg Take 2 Univers 20 mg 2-16 02 tablets by ity of tablet 00:00: mouth [place] 00 daily. Medical Branch furosemide 2021-0 Yes [id number] 40mg Take 2 Univers 20 mg 2-16 02 tablets by ity of tablet 00:00: mouth [place] 00 daily. Medical Branch furosemide 2021-0 Yes [id number] 40mg Take 2 Univers 20 mg 2-16 02 tablets by ity of tablet 00:00: mouth [place] 00 daily. Medical Branch furosemide 2021-0 Yes [id number] 40mg Take 2 Univers 20 mg 2-16 02 tablets by ity of tablet 00:00: mouth [place] 00 daily. Medical Branch furosemide 2021-0 Yes [id number] 40mg Take 2 Univers 20 mg 2-16 02 tablets by ity of tablet 00:00: mouth [place] 00 daily. Medical Branch furosemide 2021-0 Yes [id number] 40mg Take 2 Univers 20 mg 2-16 02 tablets by ity of tablet 00:00: mouth [place] 00 daily. Medical Branch furosemide 2021-0 Yes [id number] 40mg Take 2 Univers 20 mg 2-16 02 tablets by ity of tablet 00:00: mouth [place] 00 daily. Medical Branch furosemide 2021-0 Yes [id number] 40mg Take 2 Univers 20 mg 2-16 02 tablets by ity of tablet 00:00: mouth [place] 00 daily. Medical Branch furosemide 2021-0 Yes [id number] 40mg Take 2 Univers 20 mg 2-16 02 tablets by ity of tablet 00:00: mouth [place] 00 daily. Medical Branch furosemide 2021-0 Yes [id number] 40mg Take 2 [facility] 20 mg 2-16 02 tablets by ity of tablet 00:00: mouth [place] 00 daily. Medical Branch furosemide 2021-0 Yes [id number] 40mg Take 2 Univers 20 mg 2-16 02 tablets by ity of tablet 00:00: mouth [place] 00 daily. Medical Branch furosemide 2021-0 Yes [id number] 40mg Take 2 Univers 20 mg 2-16 02 tablets by ity of tablet 00:00: mouth [place] 00 daily. Medical Branch furosemide 2021-0 Yes [id number] 40mg Take 2 Univers 20 mg 2-16 02 tablets by ity of tablet 00:00: mouth [place] 00 daily. Medical Branch furosemide 2021-0 Yes [id number] 40mg Take 2 Univers 20 mg 2-16 02 tablets by ity of tablet 00:00: mouth [place] 00 daily. Medical Branch furosemide 2021-0 Yes [id number] 40mg Take 2 Univers 20 mg 2-16 02 tablets by ity of tablet 00:00: mouth [place] 00 daily. Medical Branch furosemide 2021-0 Yes [id number] 40mg Take 2 Univers 20 mg 2-16 02 tablets by ity of tablet 00:00: mouth [place] 00 daily. Medical Branch furosemide 0 Yes [id number] 40mg Take 2 Univers 20 mg 2-16 02 tablets by ity of tablet 00:00: mouth [place] 00 daily. Medical Branch furosemide 0 Yes [id number] 40mg Take 2 Univers 20 mg 2-16 02 tablets by ity of tablet 00:00: mouth [place] 00 daily. Medical Branch furosemide 0 Yes [id number] 40mg Take 2 Univers 20 mg 2-16 02 tablets by ity of tablet 00:00: mouth [place] 00 daily. Medical Branch furosemide 0 Yes [id number] 40mg Take 2 Univers 20 mg 2-16 02 tablets by ity of tablet 00:00: mouth [place] 00 daily. Medical Branch furosemide 0 Yes [id number] 40mg Take 2 Univers 20 mg 2-16 02 tablets by ity of tablet 00:00: mouth [place] 00 daily. Medical Branch furosemide 0 Yes [id number] 40mg Take 2 Univers 20 mg 2-16 02 tablets by ity of tablet 00:00: mouth [place] 00 daily. Medical Branch furosemide 0 Yes [id number] 40mg Take 2 Univers 20 mg 2-16 02 tablets by ity of tablet 00:00: mouth [place] 00 daily. Medical Branch metoprolol 2020-04 Yes [id number] 25mg Take 1 U nivers tartrate 25 2-15 tablet by ity of mg tablet 00:00: mouth 2 00 (two) Medical times Branch daily. metoprolol 2020-04 Yes [id number] 25mg Take 1 U nivers tartrate 25 2-15 tablet by ity of mg tablet 00:00: mouth 2 00 (two) Medical times Branch daily. metoprolol 2020-04 Yes [id number] 25mg Take 1 U nivers tartrate 25 2-15 tablet by ity of mg tablet 00:00: mouth (two) Medical times Branch daily. metoprolol 2020-04 Yes [id number] 25mg Take 1 U nivers tartrate 25 2-15 tablet by ity of mg tablet 00:00: mouth (two) Medical times Branch daily. metoprolol 2020-04 Yes [id number] 25mg Take 1 U nivers tartrate 25 2-15 tablet by ity of mg tablet 00:00: mouth (two) Medical times Branch daily. metoprolol 2020-04 Yes [id number] 25mg Take 1 U nivers tartrate 25 2-15 tablet by ity of mg tablet 00:00: mouth (two) Medical times Branch daily. metoprolol 2020-04 Yes [id number] 25mg Take 1 U nivers tartrate 25 2-15 tablet by ity of mg tablet 00:00: mouth (two) Medical times Branch daily. metoprolol 2020-04 Yes [id number] 25mg Take 1 U nivers tartrate 25 2-15 tablet by ity of mg tablet 00:00: mouth (two) Medical times Branch daily. metoprolol 2020-04 Yes [id number] 25mg Take 1 U nivers tartrate 25 2-15 tablet by ity of mg tablet 00:00: mouth (two) Medical times Branch daily. metoprolol 2020-04 Yes [id number] 25mg Take 1 U nivers tartrate 25 2-15 tablet by ity of mg tablet 00:00: mouth (two) Medical times Branch daily. metoprolol 2020-04 Yes [id number] 25mg Take 1 U nivers tartrate 25 2-15 tablet by ity of mg tablet 00:00: mouth (two) Medical times Branch daily. metoprolol 2020-04 Yes [id number] 25mg Take 1 U nivers tartrate 25 2-15 tablet by ity of mg tablet 00:00: mouth (two) Medical times Branch daily. metoprolol 2020-04 Yes [id number] 25mg Take 1 U nivers tartrate 25 2-15 tablet by ity of mg tablet 00:00: mouth (two) Medical times Branch daily. metoprolol 2020-04 Yes [id number] 25mg Take 1 U nivers tartrate 25 2-15 tablet by ity of mg tablet 00:00: mouth (two) Medical times Branch daily. metoprolol 2020-04 Yes [id number] 25mg Take 1 U nivers tartrate 25 2-15 tablet by ity of mg tablet 00:00: mouth (two) Medical times Branch daily. metoprolol 2020-04 Yes [id number] 25mg Take 1 U nivers tartrate 25 2-15 tablet by ity of mg tablet 00:00: mouth (two) Medical times Branch daily. metoprolol 2020-04 Yes [id number] 25mg Take 1 U nivers tartrate 25 2-15 tablet by ity of mg tablet 00:00: mouth (two) Medical times Branch daily. metoprolol 2020-04 Yes [id number] 25mg Take 1 U nivers tartrate 25 2-15 tablet by ity of mg tablet 00:00: mouth (two) Medical times Branch daily. metoprolol 2020-04 Yes [id number] 25mg Take 1 U nivers tartrate 25 2-15 tablet by ity of mg tablet 00:00: mouth (two) Medical times Branch daily. metoprolol 2020-04 Yes [id number] 25mg Take 1 U nivers tartrate 25 2-15 tablet by ity of mg tablet 00:00: mouth (two) Medical times Branch daily. metoprolol 2020-04 Yes [id number] 25mg Take 1 U nivers tartrate 25 2-15 tablet by ity of mg tablet 00:00: mouth (two) Medical times Branch daily. metoprolol 2020-04 Yes [id number] 25mg Take 1 U nivers tartrate 25 2-15 tablet by ity of mg tablet 00:00: mouth (two) Medical times Branch daily. metoprolol 2020-04 Yes [id number] 25mg Take 1 U nivers tartrate 25 2-15 tablet by ity of mg tablet 00:00: mouth (two) Medical times Branch daily. metoprolol 2020-04 Yes [id number] 25mg Take 1 U nivers tartrate 25 2-15 tablet by ity of mg tablet 00:00: mouth 2 (two) Medical times Branch daily. metoprolol 2020-04 Yes [id number] 25mg Take 1 U nivers tartrate 25 2-15 tablet by ity of mg tablet 00:00: mouth 2 (two) Medical times Branch daily. metoprolol 2020-04 Yes [id number] 25mg Take 1 U nivers tartrate 25 2-15 tablet by ity of mg tablet 00:00: mouth (two) Medical times Branch daily. metoprolol 2020-04 Yes [id number] 25mg Take 1 U nivers tartrate 25 2-15 tablet by ity of mg tablet 00:00: mouth (two) Medical times Branch daily. metoprolol 2020-04 Yes [id number] 25mg Take 1 U nivers tartrate 25 2-15 tablet by ity of mg tablet 00:00: mouth (two) Medical times Branch daily. metoprolol 2020-04 Yes [id number] 25mg Take 1 U nivers tartrate 25 2-15 tablet by ity of mg tablet 00:00: mouth (two) Medical times Branch daily. polyethylen 2020-04 Yes [id number] 17g Take 1 Univers e glycol 0-29 Packet by ity of 3350 17 00:00: mouth [place] gram powder 00 daily. Medica l Branch polyethylen 2020-04 Yes [id number] 17g Take 1 Univers e glycol 0-29 Packet by ity of 3350 17 00:00: mouth [place] gram powder 00 daily. Medica l Branch polyethylen 2020-04 Yes [id number] 17g Take 1 Univers e glycol 0-29 Packet by ity of 3350 17 00:00: mouth [place] gram powder 00 daily. Medica l Branch polyethylen 2020-04 Yes [id number] 17g Take 1 Univers e glycol 0-29 Packet by ity of 3350 17 00:00: mouth [place] gram powder 00 daily. Medica l Branch polyethylen 2020-04 Yes [id number] 17g Take 1 Univers e glycol 0-29 Packet by ity of 3350 17 00:00: mouth [place] gram powder 00 daily. Medica l Branch polyethylen 2020-04 Yes [id number] 17g Take 1 Univers e glycol 0-29 Packet by ity of 3350 17 00:00: mouth [place] gram powder 00 daily. Medica l Branch polyethylen 2020-04 Yes [id number] 17g Take 1 Univers e glycol 0-29 Packet by ity of 3350 17 00:00: mouth [place] gram powder 00 daily. Medica l Branch polyethylen 2020-04 Yes [id number] 17g Take 1 Univers e glycol 0-29 Packet by ity of 3350 17 00:00: mouth [place] gram powder 00 daily. Medica l Branch polyethylen 2020-04 Yes [id number] 17g Take 1 Univers e glycol 0-29 Packet by ity of 3350 17 00:00: mouth [place] gram powder 00 daily. Medica l Branch polyethylen 2020-04 Yes [id number] 17g Take 1 Univers e glycol 0-29 Packet by ity of 3350 17 00:00: mouth [place] gram powder 00 daily. Medica l Branch polyethylen 2020-04 Yes [id number] 17g Take 1 Univers e glycol 0-29 Packet by ity of 3350 17 00:00: mouth [place] gram powder 00 daily. Medica l Branch polyethylen 2020-04 Yes [id number] 17g Take 1 Univers e glycol 0-29 Packet by ity of 3350 17 00:00: mouth [place] gram powder 00 daily. Medica l Branch polyethylen 2020-04 Yes [id number] 17g Take 1 Univers e glycol 0-29 Packet by ity of 3350 17 00:00: mouth [place] gram powder 00 daily. Medica l Branch polyethylen 2020-04 Yes [id number] 17g Take 1 Univers e glycol 0-29 Packet by ity of 3350 17 00:00: mouth [place] gram powder 00 daily. Medica l Branch polyethylen 2020-04 Yes [id number] 17g Take 1 Univers e glycol 0-29 Packet by ity of 3350 17 00:00: mouth [place] gram powder 00 daily. Medica l Branch polyethylen 2020-04 Yes [id number] 17g Take 1 Univers e glycol 0-29 Packet by ity of 3350 17 00:00: mouth [place] gram powder 00 daily. Medica l Branch polyethylen 2020-04 Yes [id number] 17g Take 1 Univers e glycol 0-29 Packet by ity of 3350 17 00:00: mouth [place] gram powder 00 daily. Medica l Branch polyethylen 2020-04 Yes [id number] 17g Take 1 Univers e glycol 0-29 Packet by ity of 3350 17 00:00: mouth [place] gram powder 00 daily. Medica l Branch polyethylen 2020-04 Yes [id number] 17g Take 1 Univers e glycol 0-29 Packet by ity of 3350 17 00:00: mouth [place] gram powder 00 daily. Medica l Branch polyethylen 2020-04 Yes [id number] 17g Take 1 Univers e glycol 0-29 Packet by ity of 3350 17 00:00: mouth [place] gram powder 00 daily. Medica l Branch polyethylen 2020-04 Yes [id number] 17g Take 1 Univers e glycol 0-29 Packet by ity of 3350 17 00:00: mouth [place] gram powder 00 daily. Medica l Branch polyethylen 2020-04 Yes [id number] 17g Take 1 Univers e glycol 0-29 Packet by ity of 3350 17 00:00: mouth [place] gram powder 00 daily. Medica l Branch polyethylen 2020-04 Yes [id number] 17g Take 1 Univers e glycol 0-29 Packet by ity of 3350 17 00:00: mouth [place] gram powder 00 daily. Medica l Branch polyethylen 2020-04 Yes [id number] 17g Take 1 Univers e glycol 0-29 Packet by ity of 3350 17 00:00: mouth [place] gram powder 00 daily. Medica l Branch polyethylen 2020-04 Yes [id number] 17g Take 1 Univers e glycol 0-29 Packet by ity of 3350 17 00:00: mouth [place] gram powder 00 daily. Medica l Branch polyethylen 2020-04 Yes [id number] 17g Take 1 Univers e glycol 0-29 Packet by ity of 3350 17 00:00: mouth [place] gram powder 00 daily. Medica l Branch polyethylen 2020-04 Yes [id number] 17g Take 1 Univers e glycol 0-29 Packet by ity of 3350 17 00:00: mouth [place] gram powder 00 daily. Medica l Branch polyethylen 2020-04 Yes [id number] 17g Take 1 Univers e glycol 0-29 Packet by ity of 3350 17 00:00: mouth [place] gram powder 00 daily. Medica l Branch polyethylen 2020-04 Yes [id number] 17g Take 1 Univers e glycol 0-29 Packet by ity of 3350 17 00:00: mouth [place] gram powder 00 daily. Medica l Branch docusate 2020-04 Yes [id number] 100mg Take 1 U nivers 100 mg 0-28 capsule by ity of capsule 00:00: mouth (two) Medical times Branch daily. docusate 2020-04 Yes [id number] 100mg Take 1 U nivers 100 mg 0-28 capsule by ity of capsule 00:00: mouth 2 (two) Medical times Branch daily. docusate 2020-04 Yes [id number] 100mg Take 1 U nivers 100 mg 0-28 capsule by ity of capsule 00:00: mouth (two) Medical times Branch daily. docusate 2020-04 Yes [id number] 100mg Take 1 U nivers 100 mg 0-28 capsule by ity of capsule 00:00: mouth (two) Medical times Branch daily. docusate 2020-04 Yes [id number] 100mg Take 1 U nivers 100 mg 0-28 capsule by ity of capsule 00:00: mouth (two) Medical times Branch daily. docusate 2020-04 Yes [id number] 100mg Take 1 U nivers 100 mg 0-28 capsule by ity of capsule 00:00: mouth (two) Medical times Branch daily. docusate 2020-04 Yes [id number] 100mg Take 1 U nivers 100 mg 0-28 capsule by ity of capsule 00:00: mouth (two) Medical times Branch daily. docusate 2020-04 Yes [id number] 100mg Take 1 U nivers 100 mg 0-28 capsule by ity of capsule 00:00: mouth (two) Medical times Branch daily. docusate 2020-04 Yes [id number] 100mg Take 1 U nivers 100 mg 0-28 capsule by ity of capsule 00:00: mouth 2 (two) Medical times Branch daily. docusate 2020-04 Yes [id number] 100mg Take 1 U nivers 100 mg 0-28 capsule by ity of capsule 00:00: mouth (two) Medical times Branch daily. docusate 2020-04 Yes [id number] 100mg Take 1 U nivers 100 mg 0-28 capsule by ity of capsule 00:00: mouth (two) Medical times Branch daily. docusate 2020-04 Yes [id number] 100mg Take 1 U nivers 100 mg 0-28 capsule by ity of capsule 00:00: mouth (two) Medical times Branch daily. docusate 2020-04 Yes [id number] 100mg Take 1 U nivers 100 mg 0-28 capsule by ity of capsule 00:00: mouth (two) Medical times Branch daily. docusate 2020-04 Yes [id number] 100mg Take 1 U nivers 100 mg 0-28 capsule by ity of capsule 00:00: mouth (two) Medical times Branch daily. docusate 2020-04 Yes [id number] 100mg Take 1 U nivers 100 mg 0-28 capsule by ity of capsule 00:00: mouth (two) Medical times Branch daily. docusate 2020-04 Yes [id number] 100mg Take 1 U nivers 100 mg 0-28 capsule by ity of capsule 00:00: mouth (two) Medical times Branch daily. docusate 2020-04 Yes [id number] 100mg Take 1 U nivers 100 mg 0-28 capsule by ity of capsule 00:00: mouth (two) Medical times Branch daily. docusate 2020-04 Yes [id number] 100mg Take 1 U nivers 100 mg 0-28 capsule by ity of capsule 00:00: mouth (two) Medical times Branch daily. docusate 2020-04 Yes [id number] 100mg Take 1 U nivers 100 mg 0-28 capsule by ity of capsule 00:00: mouth (two) Medical times Branch daily. docusate 2020-04 Yes [id number] 100mg Take 1 U nivers 100 mg 0-28 capsule by ity of capsule 00:00: mouth (two) Medical times Branch daily. docusate 2020-04 Yes [id number] 100mg Take 1 U nivers 100 mg 0-28 capsule by ity of capsule 00:00: mouth (two) Medical times Branch daily. docusate 2020-04 Yes [id number] 100mg Take 1 U nivers 100 mg 0-28 capsule by ity of capsule 00:00: mouth (two) Medical times Branch daily. docusate 2020-04 Yes [id number] 100mg Take 1 U nivers 100 mg 0-28 capsule by ity of capsule 00:00: mouth (two) Medical times Branch daily. docusate 2020-04 Yes [id number] 100mg Take 1 U nivers 100 mg 0-28 capsule by ity of capsule 00:00: mouth (two) Medical times Branch daily. docusate 2020-04 Yes [id number] 100mg Take 1 U nivers 100 mg 0-28 capsule by ity of capsule 00:00: mouth (two) Medical times Branch daily. docusate 2020-04 Yes [id number] 100mg Take 1 U nivers 100 mg 0-28 capsule by ity of capsule 00:00: mouth (two) Medical times Branch daily. docusate 2020-04 Yes [id number] 100mg Take 1 U nivers 100 mg 0-28 capsule by ity of capsule 00:00: mouth (two) Medical times Branch daily. docusate 2020-04 Yes [id number] 100mg Take 1 U nivers 100 mg 0-28 capsule by ity of capsule 00:00: mouth (two) Medical times Branch daily. docusate 2020-04 Yes [id number] 100mg Take 1 U nivers 100 mg 0-28 capsule by ity of capsule 00:00: mouth (two) Medical times Branch daily. warfarin 2 Yes Atrial 2mg Take 1 Uni vers mg tablet 4-08 flutter, tablet by i ty of 00:00: unspecified mouth type every Medical evening. Branch Take 1 tablet by mouth 7 days a week. sotaloL 80 2019-04 Yes 80mg Take 1 Unive rs mg tablet 1-17 tablet by ity o f 00:00: mouth (two) Medical times Branch daily. atorvastati 2019-04 Yes Mixed 40mg Take 1 Uni vers n 40 mg 1-17 hyperlipide tablet by ity of tablet 00:00: dar[place] mouth at [place] 00 bedtime. Medical Branch zolpidem 10 2016-0 Yes Univer s mg tablet 4-21 ity of 00:00: [place] [facility] gabapentin 2017-0 Yes Take by [...] 4-21 mouth ity of capsule 00:00: daily. [place] [facility] lidocaine 5 2016-0 Yes Univer s % (700 4-21 ity of mg/patch) 00:00: [place] patch Medical Branch gabapentin 2017-0 Yes Take by Univ ers 300 mg 4-21 mouth ity of capsule 00:00: daily. [place] [facility] lidocaine 5 2017-0 Yes Univer s % (700 4-21 ity of mg/patch) 00:00: [place] patch Medical Branch gabapentin 2017-0 Yes Take by Univ ers 300 mg 4-21 mouth ity of capsule 00:00: daily. [place] [facility] lidocaine 5 2017-0 Yes Univer s % (700 4-21 ity of mg/patch) 00:00: [place] patch Medical Branch gabapentin 2017-0 Yes Take by Univ ers 300 mg 4-21 mouth ity of capsule 00:00: daily. [place] [facility] lidocaine 5 2017-0 Yes Univer s % (700 4-21 ity of mg/patch) 00:00: [place] patch Medical Branch gabapentin 2017-0 Yes Take by Univ ers 300 mg 4-21 mouth ity of capsule 00:00: daily. [place] [facility] lidocaine 5 2017-0 Yes Univer s % (700 4-21 ity of mg/patch) 00:00: [place] patch Medical Branch gabapentin 2017-0 Yes Take by Univ ers 300 mg 4-21 mouth ity of capsule 00:00: daily. [place] [facility] lidocaine 5 2017-0 Yes Univer s % (700 4-21 ity of mg/patch) 00:00: [place] patch 00 Medical Branch gabapentin 2017-0 Yes Take by Univ ers 300 mg 4-21 mouth ity of capsule 00:00: daily. [place] [facility] lidocaine 5 2017-0 Yes Univer s % (700 4-21 ity of mg/patch) 00:00: [place] patch 00 Medical Branch gabapentin 2017-0 Yes Take by Univ ers 300 mg 4-21 mouth ity of capsule 00:00: daily. [place] [facility] lidocaine 5 2017-0 Yes Univer s % (700 4-21 ity of mg/patch) 00:00: [place] patch Medical Branch gabapentin 2017-0 Yes Take by Univ ers 300 mg 4-21 mouth ity of capsule 00:00: daily. [place] [facility] lidocaine 5 2017-0 Yes Univer s % (700 4-21 ity of mg/patch) 00:00: [place] patch Medical Branch gabapentin 2017-0 Yes Take by Univ ers 300 mg 4-21 mouth ity of capsule 00:00: daily. [place] [facility] lidocaine 5 2017-0 Yes Univer s % (700 4-21 ity of mg/patch) 00:00: [place] patch Medical Branch gabapentin 2017-0 Yes Take by Univ ers 300 mg 4-21 mouth ity of capsule 00:00: daily. [place] [facility] lidocaine 5 2017-0 Yes Univer s % (700 4-21 ity of mg/patch) 00:00: [place] patch Medical Branch gabapentin 2017-0 Yes Take by Univ ers 300 mg 4-21 mouth ity of capsule 00:00: daily. [place] [facility] lidocaine 5 2017-0 Yes Univer s % (700 4-21 ity of mg/patch) 00:00: [place] patch Medical Branch gabapentin 2017-0 Yes Take by Univ ers 300 mg 4-21 mouth ity of capsule 00:00: daily. [place] [facility] lidocaine 5 2017-0 Yes Univer s % (700 4-21 ity of mg/patch) 00:00: [place] patch 00 Medical Branch gabapentin 2017-0 Yes Take by Univ ers 300 mg 4-21 mouth ity of capsule 00:00: daily. [place] [facility] lidocaine 5 2017-0 Yes Univer [...] 4-21 mouth ity of capsule 00:00: daily. [place] [facility] lidocaine 5 2017-0 Yes Univer s % (700 4-21 ity of mg/patch) 00:00: [place] patch Medical Branch gabapentin 2017-0 Yes Take by Univ ers 300 mg 4-21 mouth ity of capsule 00:00: daily. [place] [facility] lidocaine 5 2017-0 Yes Univer [...] mg EC 4-14 ity of tablet 00:00: [place] [facility] pantoprazol 2017-0 Yes Univer s e 40 mg EC 4-14 ity of tablet 00:00: [place] [facility] Branch pantoprazol 2017-0 Yes Univer s e 40 mg EC 4-14 ity of tablet 00:00: [place] [facility] Branch pantoprazol 2017-0 Yes Univer s e 40 mg EC 4-14 ity of tablet 00:00: [place] [facility] Branch pantoprazol 2017-0 Yes Univer s e 40 mg EC 4-14 ity of tablet 00:00: [place] [facility] pantoprazol 2017-0 Yes Univer s e 40 mg EC 4-14 ity of tablet 00:00: [place] [facility] pantoprazol 2017-0 Yes Univer s e 40 mg EC 4-14 ity of tablet 00:00: [place] [facility] pantoprazol 2017-0 Yes Univer s e 40 mg EC 4-14 ity of tablet 00:00: [place] [facility] pantoprazol 2017-0 Yes Univer s e 40 mg EC 4-14 ity of tablet 00:00: [address] pantoprazol 2017-0 Yes Univer s e 40 mg EC 4-14 ity of tablet 00:00: [address] pantoprazol 2017-0 Yes Univer s e 40 mg EC 4-14 ity of tablet 00:00: [place] [facility] Branch pantoprazol 2017-0 Yes Univer s e 40 mg EC 4-14 ity of tablet 00:00: [place] [facility] Branch pantoprazol 2017-0 Yes Univer s e 40 mg EC 4-14 ity of tablet 00:00: [place] [facility] Branch pantoprazol 2017-0 Yes Univer s e 40 mg EC 4-14 ity of tablet 00:00: [place] [facility] pantoprazol 2017-0 Yes Univer s e 40 mg EC 4-14 ity of tablet 00:00: [place] [facility] Branch pantoprazol 2017-0 Yes Univer s e 40 mg EC 4-14 ity of tablet 00:00: [address] Branch pantoprazol 2017-0 Yes Univer s e 40 mg EC 4-14 ity of tablet 00:00: [place] [facility] Branch pantoprazol 2017-0 Yes Univer s e [...] 00:00: [place] 00 Medical Branch aspirin 81 2016- Yes 81mg Take 1 Unive rs mg chewable 0-26 tablet by ity of tablet 00:00: mouth [place] 00 daily. Medical Branch aspirin 81 2016- Yes 81mg Take 1 Unive rs mg chewable 0-26 tablet by ity of tablet 00:00: mouth [place] 00 daily. Medical Branch aspirin 81 2016- Yes 81mg Take 1 Unive rs mg chewable 0-26 tablet by ity of tablet 00:00: mouth [place] 00 daily. Medical Branch aspirin 81 2016- Yes 81mg Take 1 Unive rs mg chewable 0-26 tablet by ity of tablet 00:00: mouth [place] 00 daily. Medical Branch aspirin 81 2016- Yes 81mg Take 1 Unive rs mg chewable 0-26 tablet by ity of tablet 00:00: mouth [place] 00 daily. Medical Branch aspirin 81 2016- Yes 81mg Take 1 Unive rs mg chewable 0-26 tablet by ity of tablet 00:00: mouth [place] 00 daily. Medical Branch aspirin 81 2016-1 Yes 81mg [...] tablet times Branch daily with meals. NITROGLYCER 2006-0 Yes 1 Tab SL Un chong IN 0.4 MG 1-16 Q5MIN PRN ity o f SL SUBL 00:00: [place] 00 Medical Branch Immunizations Ordered Filled Immunization Date Status Comments [facility] e Immunization Name Name Influenza Virus [...] Time Observation Value Comments Source Systolic blood 2022-02-28 19:10:00 161 mm[Hg] Univer sity of pressure [facility] Diastolic blood 2022-02-28 19:10:00 59 mm[Hg] Unive rsity of pressure [facility] Heart rate 2022-02-28 19:10:00 50 /min Universi ty of [facility] Oxygen saturation in 2022-02-28 19:10:00 100 /min [facility] Arterial blood by [facility] [place] [facility] Pulse oximetry Branch Body temperature 2022-02-28 19:08:00 36.11 [facility] Respiratory rate 2022-02-28 19:08:00 16 /min [facility] Body weight 2022-02-28 19:08:00 49.125 kg [facility] BMI 2022-02-28 19:08:00 19.18 kg/m2 [facility] Procedures Procedure Date / Time Performed Performing Clinician Sour e ASSIGNMENT OF BENEFITS 2022-03-14 15:15:00 Doctor Unassigned, No [facility] CONSENT/REFUSAL FOR 2022-02-28 18:42:52 Doctor Unassigned, No Un iversity [facility] DIAGNOSIS AND Name Medical Branch TREATMENT CONSENT/REFUSAL FOR 2022-02-14 14:32:17 [facility] Branch TREATMENT ASSIGNMENT OF BENEFITS 2022-02-14 14:32:04 Doctor Unassigned, No [facility] ASSIGNMENT OF BENEFITS 2021-12-14 17:04:14 Doctor Unassigned, No [facility] HOSPITAL ADMISSION 2021-11-23 05:01:00 Doctor Unassigned, No [facility] Plan of Care Planned Activity Planned Date Details Comments Source Future Scheduled 2021-03-29 Depression screening [facility] Test 00:00:00 (procedure) [code = Medical Branch 810504299] Future Scheduled 2020-12-14 INFLUENZA VACCINE [facility] Test 00:00:00 (Season Ended) [code = Medic al Branch INFLUENZA VACCINE (Season Ended)] Future Scheduled 2020-10-29 Screening for [facility] Test 00:00:00 [facility]) [code = 879678346] Future Scheduled 2018 Medicare Annual [facility] Test 00:00:00 Wellness Visit Medical [facility] h (procedure) [code = 773694534982665] Future Scheduled 2018 Screening for [facility] Test 00:00:00 osteoporosis Medical Branch (procedure) [code = 132762186] Future Scheduled 2018 [facility]00 65+ (1 of 1 - PPSV23) Medica l Branch [code = PNEUMOCOCCAL VACCINES 65+ (1 of 1 - PPSV23)] Future Scheduled 2017-02-05 [facility]00 blood in feces Medical [facility] h (procedure) [code = 432133556] Future Scheduled 2017-02-05 Screening for University [facility] Test 00:00:00 malignant neoplasm of Medica l Branch colon (procedure) [code = 203338119] Future Scheduled 2003 Stool DNA-based Universi [facility] Test 00:00:00 colorectal cancer Medical Br anch screening (procedure) [code = 262949197222518] Future Scheduled 2003 Flexible [facility]00 sigmoidoscopy Medical Branch (procedure) [code = 96221467] Future Scheduled 2003 Screening for University [facility] Test 00:00:00 malignant neoplasm of Medica l Branch colon (procedure) [code = 104873921] Future Scheduled 2003 Zoster Recombinant Unive [facility] Test 00:00:00 Vaccine (SHINGRIX) (1 Medica l Branch of 2) [code = Zoster Recombinant Vaccine (SHINGRIX) (1 of 2)] Future Scheduled 1972 DTaP,Tdap,and Td Univers [facility] Test 00:00:00 Vaccines (1 - Tdap) Medical Branch [code = DTaP,Tdap,and Td Vaccines (1 - Tdap)] Future Scheduled 1971 [facility]atitis [facility]00 (procedure) [code = Medical Branch [id number]] Future Scheduled 1969 SARS-CoV-2 (COVID-19) [facility] Vaccine (1) [code = Medical Branch SARS-CoV-2 (COVID-19) Vaccine (1)] Encounters Start End Encounter Admission Attending Care Care Encounter Source Date/Time Date/Time Type Type Clinicians Facility Department ID 2021-11-20 Inpatient R REBECA HODGE [facility] [id number] Univers 15:24:28 REBECA HODGE i ty of [facility] 2021-09-21 Out[facility] [place] [id number] Common 10:27:03 Saurabh [id number] [facility] 2022-08-28 2022-08-28 Outpatient R SY [facility] [id number] Univers 13:00:00 13:00:00 ROGERZAHEER ana jimenes f [facility] 2022-04-12 2022-04-12 Outpatient R HIMA [facility] [id number] Univers 11:00:00 11:00:00 WAYNE ity of [facility] 2022-03-15 2022-03-15 [facility] [id number] Univers 00:00:00 00:00:00 Wayne ROSI [id number] i ty of [id number] [id number] Vt dicvt NAL 9 [facility] 2022-03-14 2022-03-14 [facility] [id number] Univers 09:30:00 09:30:00 [place] jimenes abigail [facility] 2022-03-14 2022-03-14 Orders Doctor JOHANN [id number] Univers 00:00:00 00:00:00 Only Unassigned, MIKE [id number] ity of [facility] [id number] Babak as [id number] [facility] 009 [place] 2022-03-14 2022-03-14 Telephone [facility] 1.2.973.467 [id number] Univers 00:00:00 00:00:00 [place] ARANDA 350.1.13.10 ity of [place] [phone] Vt dicvt NAL 9 [facility] 2022-02-28 2022-02-28 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, 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 [phone] Vt dical NAL 059 [facility] 2022-02-28 2022-02-28 Outpatient R [facility], [facility] [id number] Univers 13:00:00 13:00:00 [place] jimenes [facility] 2022-02-28 2022-02-28 Outpatient R [facility], [facility] [id number] Univers 13:00:00 13:00:00 [place] jimenes [facility] 2022-02-28 2022-02-28 Outpatient R [facility], [facility] [id number] Univers 13:00:00 13:00:00 [facility] 2022-02-28 2022-02-28 Orders Doctor JOHANN 1.2.840.114 [id number] Univers 00:00:00 00:00:00 Only Unassigned, MIKE 350.1.13.10 [facility] 4.2.7.2.686 Babak as [phone] [address] 2022-02-28 2022-02-28 Telephone [facility] 1.2.264.971 [id number] Univers 00:00:00 00:00:00 [place] ARANDA 350.1.13.10 [facility] 4.[place] [phone] Vt dical NAL 059 [facility] 2022-02-14 2022-02-14 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, Adc Lab Main [facility] 1.2.8 40.114 [id number] Univers 09:45:00 10:00:00 Visit Catrina Pompamerzaheer ROSI 350.1.13.10 it[facility] 4.2.7.2.[place] [id number] Vt dical NAL 353 [facility] 2022-02-14 2022-02-14 Outpatient [facility] [id number] Univers 09:45:00 09:45:00 [place] ity o f [facility] 2022-02-14 2022-02-14 Orders Doctor JOHANN 1.2.840.114 [id number] Univers 00:00:00 00:00:00 Only Unassigned, MIKE 350.1.13.10 ity of [facility] 4.2.7.2.686 Babak as [phone] [address] 2022-02-14 2022-02-14 Telephone [facility] 1.2.264.482 [id number] Univers 00:00:00 00:00:00 [place] CAMPTON 350.1.13.10 ity of [place] [phone] Vt dical NAL 059 [facility] 2022-02-13 2022-02-13 [facility]ill [facility] 1.2.840.114 [id number] Univers 00:00:00 00:00:00 [place] ARANDA 350.1.13.10 ity of [place] 4.[place].2.[place] [phone] Vt dical NAL 059 [facility] 2022-01-27 2022-01-27 Telephone [facility] 1.2.643.808 [id number] Univers 00:00:00 00:00:00 [place] CAMPTON 350.1.13.10 ity of [place] 4.2.7.2.[place] [phone] Vt dical NAL 059 [facility] 2022-01-25 2022-01-25 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, Andre Lab Main [facility] 1.2.8 40.114 [id number] Univers 08:45:00 09:00:00 Visit [place] Pompa 350.1.13.10 ity of [place] 4.2.7.2.[place] [phone] Vt dical NAL 353 [facility] 2022-01-25 2022-01-25 Outpatient [facility] [id number] Univers 08:45:00 08:45:00 QIAJUAN ity o f [facility] 2022-01-19 2022-01-19 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, Adc Lab Main [facility] 1.2.8 40.114 [id number] Univers 12:30:00 12:45:00 Visit [place] PompaTON 350.1.13.10 ity of [place] 4.2.7.2.[place] [phone] Vt dical NAL [address] [place] [address] 2022-01-19 2022-01-19 Outpatient [facility] [id number] Univers 12:30:00 12:30:00 QIANGJUN ity o f [facility] 2022-01-19 2022-01-19 Telephone [facility] 1.2.970.788 [id number] Univers 00:00:00 00:00:00 Qiangjun [place] 350.1.13.10 ity of [place] 4.2.7.2.[place] [phone] Vt dical NAL [address] [place] [address] 2022-01-17 2022-01-17 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, Adc Lab Main [facility] 1.2.8 40.114 [id number] Univers 08:45:00 09:00:00 Visit [place] Pompa 350.1.13.10 ity of [place] 4.2.7.2.[place] [phone] Vt dical NAL [address] [place] [address] 2022-01-17 2022-01-17 Outpatient [facility] [id number] Univers 08:45:00 08:45:00 QIANGJUN ity o f [facility] 2022-01-17 2022-01-17 Telephone [facility] 1.2.637.312 [id number] Univers 00:00:00 00:00:00 Qiangjun [place] 350.1.13.10 ity of [place] 4.2.7.2.[place] [id number] Vt dical NAL [address] [place] [address] 2021-12-28 2021-12-28 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, Adc Lab Main [facility] 1.2.8 40.114 [id number] Univers 10:30:00 10:45:00 Visit Yolande Love 350.1.13.10 ity of [place] 4.2.7.2.[place] [phone] [facility] 353 [facility] 2021-12-28 2021-12-28 Outpatient R IVAN, [facility] [id number] Univers 10:30:00 10:30:00 YOLANDE itjake [facility] 2021-12-28 2021-12-28 Telephone YANY [place] 1.2.892.397 [id number] Univers 00:00:00 00:00:00 Qiangjun PEDIATRIC 350.1.13.10 [place] of [place]2.[place].2.[place] [phone] [address] 2021-12-15 2021-12-15 Telephone [facility] 1.2.943.412 [id number] Univers 00:00:00 00:00:00 [place] 350.1.13.10 ity of [place] 4.2.7.2.[place] [phone] Vt dic[address] 2021-12-15 2021-12-15 Telephone [facility] 1.2.999.789 [id number] Univers 00:00:00 00:00:00 [place] ARANDA 350.1.13.10 ity of [place] 4.2.7.2.[place] [id number] Vt dical [address] 2021-12-15 2021-12-15 Refill [facility] 1.2.840.114 [id number] Univers 00:00:00 00:00:00 Qiajuan ARANDA 350.1.13.10 ity of [place] 4.2.[place].2.[place] [phone] Vt dical [address] 2021-12-14 2021-12-14 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, Adc Lab Main [facility] 1.2.8 40.114 [id number] [facility] 12:30:00 12:45:00 Visit [place] Pompa 350.1.13.10 ity of [place] 4.2.7.2.[place] [id number] Vt dical [facility] 353 [facility] 2021-12-14 2021-12-14 Outpatient R SY, [facility] [id number] Univers 12:30:00 12:30:00 QIANGJUN ity o f [facility] 2021-12-14 2021-12-14 Orders Doctor JOHANN 1.2.840.114 [id number] Univers 00:00:00 00:00:00 Only Unassigned, MIKE 350.1.13.10 ity of [facility] 4.2.7.2.686 Babak as [phone] [facility] [address] 2021-12-04 2021-12-04 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, Andre Lab Main [facility] 1.2.8 40.114 [id number] Univers 14:15:00 14:30:00 Visit Sy, [place] ARANDA 350.1.13.10 ity of [place] 4.2.7.2.[place] [id number] [address] 2021-12-04 2021-12-04 Outpatient R SY, [facility] [id number] Univers 14:15:00 14:15:00 [place] scotty o [facility] 2021-12-04 2021-12-04 Outpatient R SY, [facility] [id number] Univers 14:15:00 14:15:00 ROGERZAHEER tylery o [facility] 2021-12-04 2021-12-04 Transition ALESIA Gamez 1.2.840.114 [id number] Univers 00:00:00 00:00:00 of Care Georgie MARIAY 350.1.13.10 it y of [place]2.7.2.[place] [phone] [facility] [address] 2021-12-04 2021-12-04 Telephone Sy, [facility] 1.2.661.907 [id number] Univers 00:00:00 00:00:00 [place] ARANDA 350.1.13.10 ity of [place] 4.2.7.2.[place] [phone] Vt dical NAL 059 [facility] 2021-11-23 2021-12-01 Inpatient R REBECA HODGE [facility] 10 [id number] Univers 15:31:00 14:11:00 REBECA HODGE ity of [facility] 2021-11-23 2021-12-01 Hospital SHAYAN Hodge 1.2.209.816 [id number] Univers 15:31:00 14:11:00 Encounter Rebeca MCKEON 350.1.13.10 [facility] 4.2.7.2.686 Babak as [phone] [facility] [address] 2021-12-01 2021-12-01 Telephone [facility] 1.2.882.641 [id number] Univers 00:00:00 00:00:00 Wayneabigail ARANDA 350.1.13.10 i ty of [place] 4.2.7.2.[place] [phone] Vt dical NAL 059 [facility] 2021-11-23 2021-11-23 Orders Doctor JOHANN 1.2.840.114 [id number] Univers 00:00:00 00:00:00 Only Unassigned, MIKE 350.1.13.10 ity of [facility] 4.2.7.2.686 Babak as [phone] [facility] [address] 2021-11-22 2021-11-22 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, Andre Lab Main [facility] 1.2.8 40.114 [id number] Univers 07:45:00 08:00:00 Visit [place] Pompa 350.1.13.10 ity of [place] 4.2.7.2.[place] [phone] Vt dical NAL 353 [facility] 2021-11-22 2021-11-22 Outpatient R SY [facility] [id number] Univers 07:45:00 07:45:00 [place] perez o f [facility] 2021-11-22 2021-11-22 Outpatient R SY [facility] [id number] Univers 07:45:00 07:45:00 [place] perez o f [facility] 2021-11-20 2021-11-20 Telephone [facility] 1.2.836.655 [id number] Univers 00:00:00 00:00:00 [place] CAMPTON 350.1.13.10 ity of [place] 4.2.7.2.[place] [phone] [place] 168709 [facility] 2021-11-10 2021-11-10 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, Adc Lab Main [facility] 1.2.8 40.114 [id number] Univers 16:45:00 17:00:00 Visit [place] Pompa 350.1.13.10 ity of [place] 4.2.7.2.[place] [phone] [address] 2021-11-10 2021-11-10 Outpatient R [facility] [id number] Univers 16:45:00 16:45:00 [place] scotty o f [facility] 2021-11-10 2021-11-10 Outpatient R [facility], [facility] [id number] Univers 16:45:00 16:45:00 [place] scotty o [facility] 2021-11-10 2021-11-10 Telephone [facility] 1.2.810.564 [id number] Univers 00:00:00 00:00:00 Rogerzaheer KENANT[place] 350.1.13.10 ity of [place] 4.2.7.2.[place] [id number] [address] 2021-11-07 2021-11-07 [facility] 1.2.840.114 [id number] Univers 00:00:00 00:00:00 h, [employer] [facility] 350.1.13.10 i ty of [place].2.[place] [id number] [address] BUILDING 2021-11-06 2021-11-06 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, Adc Lab Main [facility] 1.2.8 40.114 [id number] Univers 13:15:00 13:30:00 Visit Catrina Pompamerzaheer CAMPJAVIER 350.1.13.10 ity of [place] 4.2.7.2.[place] [phone] [facility] 353 [facility] 2021-11-06 2021-11-06 Outpatient R SY, [facility] [id number] Univers 13:15:00 13:15:00 [place] scotty o f [facility] 2021-11-06 2021-11-06 Outpatient R SY, [facility] [id number] Univers 13:15:00 13:15:00 [place] scotty o f [facility] 2021-11-06 2021-11-06 Telephone [facility] 1.2.558.352 [id number] Univers 00:00:00 00:00:00 [place] [facility] 350.1.13.10 ity of [facility] 4.2.7.2.[place] [phone] [address] 2021-11-06 2021-11-06 Telephone [facility] 1.2.089.767 [id number] Univers 00:00:00 00:00:00 Wayne HEALTH 350.1.13.10 it y of [place].7.2.[place] [id number] [address] OFFICE BUILDING 2021-11-03 2021-11-03 Outpatient [facility] [id number] Univers 15:00:00 15:40:28 WAYNE ity [facility] 2021-11-03 2021-11-03 Outpatient [facility] [id number] Univers 15:00:00 15:40:28 WAYNE ity [facility] 2021-11-03 2021-11-03 Office [facility] 1.2.840.114 [id number] Univers 15:00:00 15:20:00 Visit Wayne [place] 350.1.13.10 i ty of [facility] 4.2.7.2.[place] [id number] [address] 2021-11-03 2021-11-03 Outpatient [facility] [id number] Univers 15:00:00 15:00:00 WAYNE ity of [facility] 2021-11-03 2021-11-03 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, Adc Lab Main [facility] 1.2.8 40.114 [id number] Univers 14:30:00 14:45:00 Visit Sy [place] ARANDA 350.1.13.10 ity of [place] 4.2.7.2.[place] [id number] Vt dical NAL 353 [facility] 2021-11-03 2021-11-03 Outpatient R HIMA, [facility] [id number] Univers 11:00:00 11:00:00 WAYNE ity [facility] 2021-11-03 2021-11-03 Outpatient R HIMA, [facility] [id number] Univers 11:00:00 11:00:00 WAYNE ity [facility] 2021-11-03 2021-11-03 Outpatient R HIMA [facility] [id number] Univers 11:00:00 11:00:00 WAYNE ity [facility] 2021-11-03 2021-11-03 Telephone [facility] 1.2.615.592 [id number] Univers 00:00:00 00:00:00 [place] CAMPTON 350.1.13.10 ity of [place] 4.2.7.2.[place] [phone] Vt dicvt NAL 059 [facility] 2021-10-25 2021-10-25 Refill [facility] 1.2.840.114 [id number] Univers 00:00:00 00:00:00 [place] 350.1.13.10 ity of [place] 4.2.7.2.[place] [phone] Vt dical NAL 059 [facility] 2021-10-23 2021-10-23 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, Adc Lab Main [facility] 1.2.8 40.114 [id number] Univers 10:15:00 10:30:00 Visit Sy [place] CAMPT[place] 350.1.13.10 ity of [place] 4.2.7.2.[place] [phone] Vt dical NAL 353 [facility] 2021-10-23 2021-10-23 Outpatient R SY, [facility] [id number] Univers 10:15:00 10:15:00 CATRINAJUAN ana o f [facility] 2021-10-23 2021-10-23 Outpatient R SY, [facility] [id number] Univers 10:15:00 10:15:00 [place] perez o f [facility] 2021-10-23 2021-10-23 Orders Doctor JOHANN 1.2.840.114 [id number] Univers 00:00:00 00:00:00 Only Unassigned, MIKE 350.1.13.10 ity of [facility] 4.2.7.2.686 Babak as [phone] [address] 2021-10-23 2021-10-23 Refill [facility] 1.2.840.114 [id number] Univers 00:00:00 00:00:00 [place] ARANDA 350.1.13.10 ity [facility] 4.2.7.2.[place] [phone] Vt dical NAL 059 [facility] 2021-10-23 2021-10-23 Telephone [facility] 1.2.828.009 [id number] Univers 00:00:00 00:00:00 [place] AARNDA 350.1.13.10 ity of [place] 4.2.7.2.[place] [phone] Vt dical NAL 059 [facility] 2021-10-18 2021-10-18 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 Andre Osei Lab Main [facility] 1.2.8 40.114 [id number] Univers 09:30:00 09:45:00 Visit Sy Rogerzaheer ROSI 350.1.13.10 ity of [facility] 4.2.7.2.[place] [phone] Vt dical NAL 353 [facility] 2021-10-18 2021-10-18 Outpatient R SY, [facility] [id number] Univers 09:30:00 09:30:00 [place] perez o f [facility] 2021-10-18 2021-10-18 Outpatient R SY, [facility] [id number] Univers 09:30:00 09:30:00 [place] ity o f [facility] 2021-10-18 2021-10-18 Telephone [facility] 1.2.156.810 [id number] Univers 00:00:00 00:00:00 [place] CAMPT[place] 350.1.13.10 ity of [place] 4.2.7.2.[place] [phone] Vt dical NAL [address] [place] [address] 2021-10-13 2021-10-13 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, Adc Lab Main [facility] 1.2.8 40.114 [id number] Univers 10:45:00 11:00:00 Visit [place] PompaTON 350.1.13.10 ity of [place] 4.2.7.2.[place] [phone] [address] 2021-10-13 2021-10-13 Outpatient R SY, [facility] [id number] Univers 10:45:00 10:45:00 [place] ity o [facility] 2021-10-13 2021-10-13 Outpatient R SY, [facility] [id number] Univers 10:45:00 10:45:00 [place] ity o [facility] 2021-10-13 2021-10-13 Telephone [facility] 1.2.310.504 [id number] Univers 00:00:00 00:00:00 Catrinajuan [place] 350.1.13.10 ity of [place] 4.2.7.2.[place] [phone] Vt dical NAL [address] [place] [address] 2021-09-27 2021-09-27 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, Adc Lab Main [facility] 1.2.8 40.114 [id number] Univers 10:15:00 10:30:00 Visit [place] PompaTON 350.1.13.10 ity of [place] 4.2.7.2.[place] [id number] Vt dical NAL [address] [place] [address] 2021-09-27 2021-09-27 Outpatient R SY, [facility] [id number] Univers 10:15:00 10:15:00 ROGERZAHEER ity o f [facility] 2021-09-27 2021-09-27 Outpatient R SY, [facility] [id number] Univers 10:15:00 10:15:00 ROGERZAHEER ity o f [facility] 2021-09-27 2021-09-27 Telephone [facility] 1.2.741.686 [id number] Univers 00:00:00 00:00:00 Qiamerjun [place] 350.1.13.10 ity of [place] 4.2.7.2.[place] [phone] Vt dical NAL [address] [place] [address] 2021-09-27 2021-09-27 Telephone [facility] 1.2.157.747 [id number] Univers 00:00:00 00:00:00 Qiajuan [place] 350.1.13.10 ity of [place] 4.2.7.2.[place] [phone] Vt dical NAL [address] [place] [address] 2021-09-21 2021-09-21 Refill [facility] 1.2.840.114 [id number] Univers 00:00:00 00:00:00 [place] 350.1.13.10 ity of [place] 4.2.7.2.[place] [phone] Vt dical NAL [address] [place] [address] 2021-09-01 2021-09-01 [facility] 1.2.837.597 [id number] Univers 00:00:00 00:00:00 [place] 350.1.13.10 ity of [place] 4.2.7.2.[place] [phone] Vt dical NAL [address] [place] [address] 2021-08-30 2021-08-30 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, Andre Lab Main [facility] 1.2.8 40.114 [id number] Univers 09:00:00 09:15:00 Visit Sy [place] ARANDA 350.1.13.10 ity of [place] 4.2.[place].2.[place] [phone] Vt dical NAL 353 [facility] 2021-08-30 2021-08-30 Outpatient R SY, [facility] [id number] Univers 09:00:00 09:00:00 [place] perez o f [facility] 2021-08-30 2021-08-30 Outpatient R SY, [facility] [id number] Univers 09:00:00 09:00:00 [place] scotty o [facility] 2021-08-30 2021-08-30 Orders Doctor JOHANN 1.2.840.114 [id number] Univers 00:00:00 00:00:00 Only Unassigned, MIKE 350.1.13.10 ity of [facility] 4.2.7.2.686 Babak as [phone] [address] 2021-08-30 2021-08-30 [facility]phone [facility] 1.2.626.677 [id number] Univers 00:00:00 00:00:00 Rogerzaheer ROSI 350.1.13.10 ity [facility] 4.2.[place] [phone] Vt dical NAL 9 [facility] 2021-08-28 2021-08-28 Office [facility] 1.2.840.114 [id number] Univers 10:40:00 10:49:42 Visit Catrinajuan ARANDA 350.1.13.10 ity [facility] 4.2.[place] [phone] Vt dical NAL 9 [facility] 2021-08-28 2021-08-28 Outpatient R SY, [facility] [id number] Univers 10:40:00 10:49:42 [place] scotty o [facility] 2021-08-28 2021-08-28 Outpatient R SY, [facility] [id number] Univers 10:40:00 10:40:00 [place] scotty o [facility] 2021-08-28 2021-08-28 Outpatient R SY, [facility] [id number] Univers 10:40:00 10:40:00 [place] tylery o [facility] 2021-08-16 2021-08-16 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, Adc Lab Main [facility] 1.2.8 40.114 [id number] Univers 12:15:00 12:30:00 Visit [place] Pompa 350.1.13.10 ity [facility] 4.2.7.2.[place] [phone] Vt dical [facility] 353 [facility] 2021-08-16 2021-08-16 Outpatient R [facility], [facility] [id number] Univers 12:15:00 12:15:00 [place] scotty o [facility] 2021-08-16 2021-08-16 Outpatient R [facility], [facility] [id number] Univers 12:15:00 12:15:00 [place] scotty o [facility] 2021-08-16 2021-08-16 Orders Doctor JOHANN 1.2.840.114 [id number] Univers 00:00:00 00:00:00 Only Unassigned, MIKE 350.1.13.10 [facility] 4.2.7.2.686 Babak as [phone] [address] 2021-08-16 2021-08-16 Telephone [facility] [id number] Univers 00:00:00 00:00:00 [place] CAMPJAVIER [id number] [facility] 4.2.7.2.[place] [phone] Vt dical NAL 059 [facility] 2021-08-02 2021-08-02 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, Adc Lab Main [facility] 1.2.8 40.114 [id number] Univers 09:00:00 09:15:00 Visit [place] Pompa [id number] [facility] 4.2.7.2.[place] [phone] Vt dical NAL 353 [facility] 2021-08-02 2021-08-02 Outpatient R [facility], [facility] [id number] Univers 09:00:00 09:00:00 [place] perez o [facility] 2021-08-02 2021-08-02 Outpatient R [facility] [id number] Univers 09:00:00 09:00:00 QIAMERJUN ity o f [facility] 2021-08-02 2021-08-02 Orders Doctor JOHANN 1.2.840.114 [id number] Univers 00:00:00 00:00:00 Only Unassigned, MIKE [id number] ity of [facility] 4.2.7.2.686 Babak as [phone] [address] 2021-08-02 2021-08-02 Telephone [facility] [id number] [facility] 00:00:00 00:00:00 Qiajuan [place] 350.1.13.10 ity of [facility] 4.2.7.2.[place] [phone] Vt dical NAL 059 [facility] 2021-07-10 2021-07-10 [facility] 1.2.840.114 [id number] Univers 00:00:00 00:00:00 [place] CAMPTON [id number] ity of [facility] 4.2.7.2.[place] [phone] Vt dical NAL 059 [facility] 2021-07-05 2021-07-05 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, Andre Lab Main [facility] 1.2.8 40.114 [id number] [facility] 09:30:00 09:45:00 Visit Sy [place] ARANDA 350.1.13.10 ity [facility] 4.2.7.2.[place] [phone] Vt dical NAL 353 [facility] 2021-07-05 2021-07-05 [facility] [id number] Univers 09:30:00 09:30:00 ROGERJUN ity o f [facility] 2021-07-05 2021-07-05 [facility] [id number] Univers 09:30:00 09:30:00 ROGERJUN ity o f [facility] 2021-07-05 2021-07-05 Telephone [facility] 1.2.906.427 [id number] Univers 00:00:00 00:00:00 [place] ARANDA 350.1.13.10 ity of [place] [phone] Vt dical NAL 059 [facility] 2021-06-15 2021-06-15 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, Adc Lab Main [place] 1.2.8 40.114 [id number] Univers 09:45:00 10:00:00 Visit Sy [place] ARANDA 350.1.13.10 ity [facility] 4.2.7.[place] [phone] [facility] 353 [facility] 2021-06-15 2021-06-15 Outpatient R [facility] [id number] Univers 09:45:00 09:23:22 [place] perez o f [facility] 2021-06-15 2021-06-15 Outpatient R [facility] [id number] Univers 09:45:00 09:23:22 [place] perez o f [facility] 2021-06-15 2021-06-15 Orders Doctor JOHANN 1.2.840.114 [id number] Univers 00:00:00 00:00:00 Only Unassigned, MIKE 350.1.13.10 ity of [place] [facility] 4.2.7.2.686 Babak as [phone] [facility] [address] 2021-06-15 2021-06-15 Telephone YANY Pom[place] 1.2.244.504 [id number] Univers 00:00:00 00:00:00 [place] PEDIATRIC 350.1.13.10 [place] [phone] [facility] PRIMARY [address] CARE [facility] 2021-05-31 2021-05-31 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, Adc Lab Main [place] 1.2.8 40.114 [id number] Univers 10:45:00 11:00:00 Visit Sy [place] ARANDA 350.1.13.10 ity of [facility] 4.2.7.[place] [phone] [facility] 353 [facility] 2021-05-31 2021-05-31 Office [facility] 1.2.840.114 [id number] Univers 10:00:00 10:33:12 Visit [place] ARANDA 350.1.13.10 ity of [place] 4.[place].7.2.[place] [phone] Vt dical NAL 9 [facility] 2021-05-31 2021-05-31 Outpatient R SY, [facility] [id number] Univers 10:00:00 10:33:12 QIANGJUN ity o [facility] 2021-05-31 2021-05-31 Outpatient R SY, [facility] [id number] Univers 10:00:00 10:00:00 QIAJUAN ity o [facility] 2021-05-31 2021-05-31 Telephone Sy, [facility] 1.2.871.152 [id number] Univers 00:00:00 00:00:00 [place] ARANDA 350.1.13.10 ity of [place] [phone] Vt dical NAL [address] [place] [address] 2021-05-26 2021-05-26 Emergency X JAKE, K [facility] ERT [id number] Univers 17:30:00 20:34:00 ity of [facility] 2021-05-26 2021-05-26 Emergency Jake, K [facility] 1.2.840.114 [id number] Univers 17:30:00 20:34:00 Myah ARANDA 350.1.13.10 i ty of [facility] 4.2.7.2.[place] [phone] [facility] [address] [place] 2021-05-26 2021-05-26 Outpatient R SY, [facility] [id number] Univers 10:20:00 10:20:00 QIANGJUN ity o [facility] 2021-05-26 2021-05-26 Outpatient R SY, [facility] [id number] Univers 10:20:00 10:20:00 QIANGJUN ity o f [facility] 2021-05-10 2021-05-10 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, Adc Lab Main [facility] 1.2.8 40.114 [id number] Univers 08:15:00 08:30:00 Visit [place] 350.1.13.10 ity of [place] 4.[place].7.2.[place] [phone] Vt dical NAL 353 [facility] 2021-05-10 2021-05-10 Outpatient R [facility], [facility] [id number] Univers 08:15:00 08:15:00 QIAMERZAHEER ity o f [facility] 2021-05-10 2021-05-10 Outpatient R [facility], [facility] [id number] Univers 08:15:00 08:15:00 CATRINAJUAN ity o f [facility] 2021-05-10 2021-05-10 Telephone [facility] 1.2.554.191 [id number] Univers 00:00:00 00:00:00 [place] CAMPT[place] 350.1.13.10 ity of [place] 4.2.7.2.[place] [phone] [facility] NAL 059 [facility] 2021-05-10 2021-05-10 Telephone [facility] 1.2.240.253 [id number] Univers 00:00:00 00:00:00 Qiajuan [place] 350.1.13.10 ity of [place] 4.2.7.[place] [phone] [place] 168[address] [facility] 2021-05-09 2021-05-09 Refill [facility] 1.2.840.114 [id number] Univers 00:00:00 00:00:00 [place] CAMPTON 350.1.13.10 ity of [place] 4[place] [phone] Vt dical NAL 9 [facility] 2021-05-04 2021-05-04 Refill [facility] 1.2.840.114 [id number] Univers 00:00:00 00:00:00 Qiajuan [place] 350.1.13.10 ity of [place] 4.[place].7.[place] [phone] [facility] NAL 9 [facility] 2021-04-28 2021-04-28 Outpatient R HIMA [facility] [id number] Univers 08:40:00 09:19:00 WAYNE ity [facility] 2021-04-28 2021-04-28 Office [facility] 1.2.840.114 [id number] Univers 08:40:00 09:19:00 Visit Wayneabigail ARANDA 350.1.13.10 i ty of [facility] 4.2.7.2.[place] [phone] Vt dical NAL 059 [facility] 2021-04-28 2021-04-28 Outpatient R HIMA [facility] [id number] Univers 08:40:00 09:19:00 WAYNE ity [facility] 2021-04-28 2021-04-28 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, Adc Lab Main [facility] 1.2.8 40.114 [id number] Univers 08:00:00 08:15:00 Visit [place] Pom[place] 350.1.13.10 ity of [facility] 4.2.7.2.[place] [phone] Vt dical NAL 353 [facility] 2021-04-27 2021-04-27 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, Adc Lab Main [facility] 1.2.8 40.114 [id number] Univers 10:45:00 11:00:00 Visit [place] Pom[place] 350.1.13.10 ity of [place] 4.2.7.2.[place] [phone] Vt dical NAL 353 [facility] 2021-04-27 2021-04-27 Outpatient R SY, [facility] [id number] Univers 10:45:00 10:45:00 ROGERJUN ity o f [facility] 2021-04-27 2021-04-27 Outpatient R SY, [facility] [id number] Univers 10:45:00 10:45:00 ROGERJUN ity o f [facility] 2021-04-27 2021-04-27 Telephone YANY [place] 1.2.641.755 [id number] Univers 00:00:00 00:00:00 [place] PEDIATRIC 350.1.13.10 [place] [phone] [facility] PRIMARY [address] CARE CLINIC 2021-04-25 2021-04-25 Outpatient R HIMA [facility] [id number] Univers 10:20:00 10:20:00 WAYNE ity [facility] 2021-04-25 2021-04-25 Outpatient R HIMA [facility] [id number] Univers 10:20:00 10:20:00 [facility] 2021-04-12 2021-04-12 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, Adc Lab Main [facility] 1.2.8 40.114 [id number] Univers 09:30:00 09:45:00 Visit [place] Pom[place] 350.1.13.10 ity of [place] 4.2.7.2.[place] [phone] [facility] 353 [facility] 2021-04-12 2021-04-12 [facility] [id number] Univers 09:30:00 09:30:00 [place] perez o [facility] 2021-04-12 2021-04-12 Outpatient R [facility] [id number] Univers 09:30:00 09:30:00 [place] perez o [facility] 2021-04-12 2021-04-12 Orders Doctor JOHANN 1.2.840.114 [id number] Univers 00:00:00 00:00:00 Only Unassigned, MIKE 350.1.13.10 ity of [place] [facility] 4.2.7.2.686 Babak as [phone] [facility] [address] 2021-04-12 2021-04-12 [facility]phone [facility] 1.2.228.961 [id number] Univers 00:00:00 00:00:00 [place] ARANDA 350.1.13.10 ity of [facility] 4.2.7.2.[place] [phone] Vt dical NAL 059 [facility] 2021-03-29 2021-03-29 [facility] [id number] Univers 11:20:00 11:20:58 [place] perez o f [facility] 2021-03-29 2021-03-29 Office [facility] 1.2.840.114 [id number] Univers 11:20:00 11:20:58 Visit [place] ARANDA 350.1.13.10 ity of [place] 4.[place].2.[place] [phone] [facility] 059 [facility] 2021-03-28 2021-03-28 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, 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 Lab Main [facility] 1.2.8 40.114 [id number] Univers 12:13:20 12:28:20 Visit [place] Pompa 350.1.13.10 ity of [facility] 4.2.7.2.[place] [phone] [facility] 353 [facility] 2021-03-28 2021-03-28 Outpatient R [facility] [id number] Univers 12:15:00 12:15:00 [place] jimenes [facility] 2021-03-28 2021-03-28 Outpatient R [facility] [id number] Univers 12:15:00 12:15:00 [place] perez o [facility] 2021-03-28 2021-03-28 Orders Doctor JOHANN 1.2.840.114 [id number] Univers 00:00:00 00:00:00 Only Unassigned, MIKE 350.1.13.10 ity of [facility] 4.2.7.2.686 Babak as [phone] [address] 2021-03-28 2021-03-28 Telephone [facility] 1.2.031.445 [id number] Univers 00:00:00 00:00:00 [place] ARANDA 350.1.13.10 ity of [place] [phone] [address] 2021-03-28 2021-03-28 Refill [facility] 1.2.840.114 [id number] Univers 00:00:00 00:00:00 Catrinamerzaheer ARANDA 350.1.13.10 ity of [place] 4.[place] [phone] Vt dical NAL 059 [facility] 2021-03-20 2021-03-20 Outpatient R SY [facility] [id number] Univers 13:45:00 13:45:00 [place] ity o f [facility] 2021-03-20 2021-03-20 Outpatient R SY [facility] [id number] Univers 13:45:00 13:45:00 [place] ity o f [facility] 2021-03-20 2021-03-20 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, Adc Lab Main [facility] 1.2.8 40.114 [id number] Univers 11:58:29 12:13:29 Visit Sy [place] AR[place]DA 350.1.13.10 ity of [place] 4.2.[place].2.[place] [phone] Vt dical NAL 353 [facility] 2021-03-20 2021-03-20 [facility]phone [facility] 1.2.105.095 [id number] Univers 00:00:00 00:00:00 [place] ARANDA 350.1.13.10 ity of [facility] 4.2.7.2.[place] [phone] Vt dical NAL 059 [facility] 2021-03-15 2021-03-15 Outpatient [facility] [id number] Univers 09:15:00 09:15:00 JOSE perez [facility] 2021-03-15 2021-03-15 Outpatient [facility] [id number] Univers 09:15:00 09:15:00 JOSE itjake [facility] 2021-03-15 2021-03-15 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 10 ity of [facility] 4.2.7.2.[place] [phone] Vt dical NAL 353 [facility] 2021-03-15 2021-03-15 Orders Doctor JOHANN 1.2.840.114 [id number] Univers 00:00:00 00:00:00 Only Unassigned, MIKE 350.1.13.10 ity of [facility] 4.2.7.2.686 Babak as [phone] [facility] [address] 2021-03-15 2021-03-15 [facility]phone [facility] 1.2.845.283 [id number] Univers 00:00:00 00:00:00 [place] ARANDA 350.1.13.10 ity of [place] 4.2.7.2.[place] [facility] [phone] [facility] [address] [facility] 2021-03-07 2021-03-07 Transition ALESIA Gamez 1.2.840.114 [id number] Univers 00:00:00 00:00:00 of Care Georgie SAMANIEGO 350.1.13.10 it y of [place] 4.2.7.2.[place] [phone] [facility] [address] 2021-03-01 2021-03-06 Inpatient X FABIOLA [facility] BERENICE [id number] Univers 11:31:00 15:17:00 CALEB perez [facility] 2021-03-01 2021-03-06 [facility] Jamie [facility] 1.2.840.1 14 [id number] Univers 11:31:00 15:17:00 Encounter Caleb Hicks 350.1.13.10 ity of [place] 4.2.7.2.[place] [phone] [facility] [address] 2021-03-01 2021-03-01 [facility] B[facility] [id number] Univers 11:31:00 11:31:00 CALEB perez [facility] 2021-02-27 2021-02-27 Outpatient R SY [facility] [id number] Univers 11:20:00 11:44:55 [place] perez o [facility] 2021-02-27 2021-02-27 Outpatient R SY [facility] [id number] Univers 11:20:00 11:44:55 [place] perez o f [facility] 2021-02-27 2021-02-27 Outpatient R SY, [facility] [id number] Univers 11:20:00 11:44:55 [place] perez o abigail [facility] 2021-02-27 2021-02-27 Outpatient R SY, [facility] [id number] Univers 11:20:00 11:44:55 [place] perez o [facility] 2021-02-27 2021-02-27 Office [facility] 1.2.840.114 [id number] Univers 10:54:32 11:44:55 Visit [place] ARANDA 350.1.13.10 ity of [facility] 4.2.7.2.[place] [phone] Vt dical NAL 059 [facility] 2021-02-27 2021-02-27 Outpatient R [facility] [id number] Univers 10:30:00 10:30:00 [place] jimenes [facility] 2021-02-27 2021-02-27 Outpatient R [facility] [id number] [facility] 10:30:00 10:30:00 [place] jimenes [facility] 2021-02-27 2021-02-27 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 aFrnaz, Andre Lab Main [facility] 1.2.8 40.114 [id number] Univers 09:52:58 10:07:58 Visit [place] PompaJAVIER 350.1.13.10 ity of [facility] 4.2.7.2.[place] [phone] Vt dical NAL 353 [facility] 2021-02-27 2021-02-27 Orders Doctor JOHANN 1.2.840.114 [id number] Univers 00:00:00 00:00:00 Only Unassigned, MIKE 350.1.13.10 ity of [facility] 4.2.7.2.686 Babak as [phone] [address] 2021-02-27 2021-02-27 Telephone [facility] 1.2.735.058 [id number] Univers 00:00:00 00:00:00 Rogerzaheer ROSI 350.1.13.10 ity of [place] 4.2.[place].2.[place] [phone] Vt dical NAL 059 [facility] 2021-02-24 2021-02-24 Outpatient R SY, [facility] [id number] Univers 10:45:00 10:45:00 QIAMERJUN ity o f [facility] 2021-02-24 2021-02-24 Outpatient R SY, [facility] [id number] Univers 10:45:00 10:45:00 QIANGJUN ity o f [facility] 2021-02-24 2021-02-24 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, Adc Lab Main [facility] 1.2.8 40.114 [id number] [facility] 09:17:46 09:32:46 Visit Sy [place] AR[place]DA 350.1.13.10 ity of [facility] 4.2.7.2.[place] [id number] Vt dical NAL 353 [facility] 2021-02-24 2021-02-24 Telephone [facility] 1.2.036.434 [id number] Univers 00:00:00 00:00:00 [place] CAMPT[place] 350.1.13.10 ity of [facility] 4.2.7.2.[place] [phone] Vt dical NAL 9 [facility] 2021-02-24 2021-02-24 Telephone [facility] 1.2.773.322 [id number] Univers 00:00:00 00:00:00 [place] 350.1.13.10 ity of [facility] 4.2.7.2.[place] [phone] Vt dical NAL 059 [facility] 2021-02-24 2021-02-24 Telephone [facility] 1.2.303.717 [id number] Univers 00:00:00 00:00:00 Qiamerjun [place] 350.1.13.10 ity of [facility] 4.2.7.2.[place] [phone] Vt dical NAL 059 [facility] 2021-02-15 2021-02-15 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, Adc Lab Main [facility] 1.2.8 40.114 [id number] Univers 09:47:39 10:02:39 Visit Sy [place] ARANDA 350.1.13.10 ity [facility] 4.2.7.2.[place] [phone] Vt dical NAL 353 [facility] 2021-02-15 2021-02-15 Outpatient R [facility] [id number] Univers 09:45:00 09:45:00 [place] perez o f [facility] 2021-02-15 2021-02-15 Outpatient R [facility], [facility] [id number] Univers 09:45:00 09:45:00 [place] tylerjake o f [facility] 2021-02-15 2021-02-15 Orders Doctor JOHANN 1.2.840.114 [id number] Univers 00:00:00 00:00:00 Only Unassigned, MIKE 350.1.13.10 ity of [facility] 4.2.7.2.686 Babak as [phone] [facility] [address] [place] 2021-02-15 2021-02-15 Telephone [facility] 1.2.131.383 [id number] Univers 00:00:00 00:00:00 [place] ARANDA 350.1.13.10 ity [facility] 4.2.7.2.[place] [phone] Vt dical NAL 059 [facility] 2021-02-10 2021-02-10 Transition ALESIA Gamez 1.2.840.114 [id number] Univers 00:00:00 00:00:00 of Care Georgie SAMANIEGO 350.1.13.10 it y of [place].2.[place] [phone] [facility] [address] 2021-02-04 2021-02-09 Inpatient X MIGUEL [facility] BER[facility]ICE [id number] Univers 20:57:00 13:26:00 JENNIFER ity of [facility] 2021-02-04 2021-02-09 [facility] Jamie Deng [facility] 1.2.840.1 14 [id number] Univers 20:57:00 13:26:00 Encounter Wilber Flowers 350.1.13.10 ity of [place] 4.2.7.2.686 [facility] [phone] [facility] [address] [place] 2021-01-02 2021-01-02 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, Adc Lab Main [facility] 1.2.8 40.114 [id number] Univers 11:35:12 11:50:12 Visit [place] Pom[place] 350.1.13.10 ity of [place] Profess[place] [phone] Vt dical nal 353 [facility] 2021-01-02 2021-01-02 Outpatient R [facility], [facility] [id number] Univers 11:45:00 11:45:00 CATRINAJUAN tylery o f [facility] 2021-01-02 2021-01-02 Outpatient R [facility], [facility] [id number] Univers 11:45:00 11:45:00 ROGERZAHEER ana o [facility] 2021-01-02 2021-01-02 Orders Doctor JOHANN 1.2.840.114 [id number] Univers 00:00:00 00:00:00 Only Unassigned, MIKE 350.1.13.10 ity of [facility] 4.2.7.2.686 Babak as [phone] [facility] [address] [place] 2021-01-02 2021-01-02 [facility]phone [facility] 1.2.651.878 [id number] Univers 00:00:00 00:00:00 [place] Aranda 350.1.13.10 ity of [place].2.[place] [phone] Vt dical nal 059 [facility] 2021-01-02 2021-01-02 [facility]ill [facility] 1.2.840.114 [id number] Univers 00:00:00 00:00:00 [place] Aranda 350.1.13.10 ity of [place] [phone] Vt dical nal 059 [facility] 2020-12-07 2020-12-07 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, Adc Lab Main [facility] 1.2.8 40.114 [id number] Univers 08:05:37 08:20:37 Visit Sy, [place] Aranda 350.1.13.10 ity of [place].2.[place] [phone] Vt dical nal 353 [facility] 2020-12-07 2020-12-07 Outpatient R SY, [facility] [id number] Univers 08:00:00 08:00:00 [place] perez o [facility] 2020-12-07 2020-12-07 Outpatient R SY, [facility] [id number] Univers 08:00:00 08:00:00 [place] jimenes [facility] 2020-12-07 2020-12-07 Telephone Sy, [facility] 1.2.803.280 [id number] Univers 00:00:00 00:00:00 [place] Aranda 350.1.13.10 ity of [place].2.[place] [phone] Vt dical nal 059 [facility] 2020-11-23 2020-11-23 Outpatient R SY, [facility] [id number] Univers 13:37:45 23:59:00 [place] perez [facility] 2020-11-23 2020-11-23 Outpatient R SY, [facility] [id number] Univers 13:37:45 23:59:00 [place] perez o [facility] 2020-11-14 2020-11-14 Outpatient R SY, [facility] [id number] Univers 13:40:00 13:40:00 [place] perez o [facility] 2020-10-12 2020-10-12 Outpatient R SY, [facility] [id number] Univers 08:00:00 08:00:00 [place] perez o [facility] 2020-09-27 2020-09-27 Outpatient R SY, [facility] [id number] Univers 13:00:00 13:00:00 [place] perez o [facility] 2020-09-22 2020-09-22 Outpatient R SY, [facility] [id number] Univers 09:30:00 09:30:00 J[place] hayes [facility] 2020-09-07 2020-09-07 Outpatient R SY, [facility] [id number] Univers 08:45:00 08:45:00 [place] jimenes [facility] 2020-08-19 2020-08-19 Outpatient R SY, [facility] [id number] Univers 08:45:00 08:45:00 [place] jimenes [facility] 2020-08-15 2020-08-15 Outpatient R SY, [facility] [id number] Univers 10:45:00 10:45:00 [place] jimenes [facility] 2020-08-08 2020-08-08 Outpatient R SY, [facility] [id number] Univers 11:45:00 11:45:00 [place] jimenes [facility] 2020-08-08 2020-08-08 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, [facility] 1.2.840.114 [id number] 11:14:44 11:29:44 Visit Lab Main Rosi 350.1.13.10 [place] 4.2.7.2.686 Professio [phone] [facility] 353 [facility] 2020-08-08 2020-08-08 Orders Doctor JOHANN 1.2.840.114 [id number] 00:00:00 00:00:00 Only Unassigned, MIKE 350.1.13.10 [facility] 4.2.7.2.686 [id number] 2020-08-08 2020-08-08 Telephone [facility] [id number] 00:00:00 00:00:00 [place] Aranda [id number] [place] 4.2.7.2.686 Professio [phone] nal 059 [facility] 2020-07-25 2020-07-25 Telephone [facility] [id number] 00:00:00 00:00:00 [place] Aranda [id number] [place] 4.2.7.2.686 Professio [phone] nal 059 [facility] 2020-07-20 2020-07-20 [facility] [id number] [employer] 11:45:00 11:45:00 [place] jimenes abigail [facility] 2020-07-20 2020-07-20 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 [facility] [id number] 10:37:03 10:52:03 Visit Lab Main [place] 350.1.13.10 [place] 4.2.7.2.686 Professio [phone] [facility] 353 [facility] 2020-07-20 2020-07-20 Orders Doctor JOHANN 1.2.840.114 [id number] 00:00:00 00:00:00 Only Unassigned, MIKE 350.1.13.10 [facility] 4.2.7.2.686 [id number] 2020-07-20 2020-07-20 Telephone [facility] [id number] 00:00:00 00:00:00 [place] 350.1.13.10 [place] 4.2.7.2.686 Professio [phone] [address] 2020-07-13 2020-07-13 [facility] [id number] [facility] 10:15:00 10:15:00 [place] jimenes abigail [facility] 2020-07-13 2020-07-13 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 [facility] [id number] 09:23:20 09:38:20 Visit Lab Main [place] [id number] [place] [id number] Professio [phone] [facility] 353 [facility] 2020-07-13 2020-07-13 Telephone [facility] [id number] 00:00:00 00:00:00 [place] [id number] [place] [id number] Professio [phone] [facility] 059 [facility] 2020-06-19 2020-06-19 Telephone [facility] [id number] 00:00:00 00:00:00 Qiangjun [place] [id number] [place] [id number] Professio [phone] [facility] [address] [place] [address] 2020-06-17 2020-06-17 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, [facility] [id number] 09:22:55 09:37:55 Visit Lab Main [place] [id number] [place] [id number] Professio [phone] [address] 2020-06-17 2020-06-17 [facility] [id number] Univers 09:30:00 09:30:00 [place] jimenes [facility] 2020-06-08 2020-06-08 [facility]phone [facility] [id number] 00:00:00 00:00:00 [place] [id number] [place] 4.2.7.2.686 Professio [phone] [address] 2020-06-07 2020-06-07 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, [facility] [id number] 08:57:47 09:12:47 Visit Lab Main [place] [id number] [place] 4.2.7.2.686 Professio [phone] [address] 2020-06-07 2020-06-07 [facility] [id number] Univers 09:00:00 09:00:00 [place] perez o [facility] 2020-05-23 2020-05-23 [facility] [id number] Univers 09:15:00 09:15:00 [place] perez o [facility] 2020-05-16 2020-05-16 Outpatient [facility] [id number] Univers 11:30:00 11:30:00 [place] perez o [facility] 2020-05-16 2020-05-16 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, [facility] [id number] 11:09:17 11:24:17 Visit Lab Main [place] [id number] [place] [id number] Professio [phone] [facility] 353 [facility] 2020-05-16 2020-05-16 Orders Doctor JOHANN [id number] 00:00:00 00:00:00 Only Unassigned, MIKE 350.1.13.10 [place] 4.2.7.2.686 [id number] [id number] 2020-05-16 2020-05-16 Telephone [facility] [id number] 00:00:00 00:00:00 [place] Ar[place] [id number] [place] 4.2.7.2.686 Professio [phone] [address] 2020-05-11 2020-05-11 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 [facility] [id number] 09:25:07 09:40:07 Visit Lab Main [place] 350.1.13.10 [place] 4.2.7.2.686 Professio [phone] [address] 2020-05-11 2020-05-11 Outpatient R JEREMIAS, [facility] [id number] Univers 09:30:00 09:30:00 SENDIL ana of [facility] 2020-05-11 2020-05-11 Telephone [facility] [id number] 00:00:00 00:00:00 [place] 350.1.13.10 [place] 4.2.7.2.686 Professio [phone] [address] 2020-05-11 2020-05-11 Telephone [facility] [id number] 00:00:00 00:00:00 [place] Ar[place] 350.1.13.10 [place] 4.2.7.2.686 Professio [phone] [address] 2020-05-04 2020-05-04 Telephone [facility] [id number] 00:00:00 00:00:00 [place] Aranda 350.1.13.10 [place] 4.2.7.2.686 Professio [phone] [facility] 059 [facility] 2020-05-03 2020-05-03 Outpatient [facility] [id number] [facility] 11:30:00 11:30:00 [place] perez o [facility] 2020-05-03 2020-05-03 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 [facility] 1.2.840.114 [id number] 10:05:00 10:20:00 Visit Lab Main [place] 350.1.13.10 [place] 4.2.7.2.686 Professio [phone] [address] 2020-05-03 2020-05-03 Orders Doctor JOHANN 1.2.840.114 [id number] 00:00:00 00:00:00 Only Unassigned, MIKE 350.1.13.10 [facility] 4.2.7.2.686 [id number] [id number] 2020-04-27 2020-04-27 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 [facility] 1.2.840.114 [id number] 08:24:03 08:39:03 Visit Lab Main [place] 350.1.13.10 [place] 4.2.7.2.686 Professio [phone] [address] 2020-04-27 2020-04-27 Outpatient [facility] [id number] Univers 08:30:00 08:30:00 [place] jimenes [facility] 2020-04-27 2020-04-27 Telephone [facility] [id number] 00:00:00 00:00:00 [place] 350.1.13.10 [place] 4.2.7.2.686 Professio [phone] [address] 2020-04-20 2020-04-20 [facility]ill [facility] [id number] 00:00:00 00:00:00 Rogerzaheer [place] 350.1.13.10 [place] 4.2.7.2.686 Professio [phone] [address] 2020-04-01 2020-04-01 [facility] [id number] Univers 10:15:00 10:15:00 NICK perez [facility] 2020-03-29 2020-03-29 Office Sy, [facility] [id number] 14:32:40 15:25:41 Visit [place] Ar[place] 350.1.13.10 [place] 4.2.7.2.686 [place] [phone] [place] 059 [facility] 2020-03-29 2020-03-29 Outpatient R SY, [facility] [id number] Univers 14:40:00 14:40:00 [place] jimenes [facility] 2020-03-22 2020-03-22 Outpatient R SY, [facility] [id number] Univers 15:30:00 15:30:00 [place] jimenes [facility] 2020-03-15 2020-03-15 Outpatient R SY, [facility] [id number] Univers 11:15:00 11:15:00 [place] jimenes [facility] 2020-02-24 2020-02-24 Outpatient R SY, [facility] [id number] Univers 08:40:00 08:40:00 [place] jimenes [facility] 2020-02-17 2020-02-17 Outpatient R SY, [facility] [id number] Univers 09:15:00 09:15:00 [place] jimenes [facility] 2020-01-11 2020-01-11 Outpatient R SY, [facility] [id number] Univers 12:45:00 12:45:00 [place] jimenes [facility] 2019-12-17 2019-12-17 Outpatient R SY, [facility] [id number] Univers 11:00:00 11:00:00 [place] jimenes [facility] 2019-11-26 2019-11-26 Outpatient R SY, [facility] [id number] Univers 12:45:00 12:45:00 [place] jimenes [facility] 2019-10-30 2019-10-30 Outpatient R RADIOLOGY [facility] [id number] Univers 00:00:00 00:00:00 ity [facility] 2019-10-20 2019-10-20 Outpatient R MCDERMOTTALICJA STRANGE [facility] [id number] Univers 09:30:00 09:30:00 ity [facility] 2019-09-30 2019-09-30 Outpatient R SY, [facility] [id number] Univers 08:30:00 08:30:00 [facility] 2019-09-08 2019-09-08 Outpatient R SY, [facility] [id number] Univers 15:20:00 15:20:00 [facility] 2019-09-03 2019-09-03 Outpatient R SY, [facility] [id number] Univers 09:00:00 09:00:00 [facility] 2019-07-24 2019-07-24 Outpatient R SY, [facility] [id number] Univers 11:45:00 11:45:00 [facility] 2019-06[facility] 2019-06-22 Outpatient R SY, [facility] [id number] Univers 13:30:00 13:30:00 [facility] Results This patient has no known results.
[2022-03-25] MEDS ORDERED: FENTANYL CITR 100 MCG/2 ML ONE (20:41)
[2022-03-25 20:58] LABS: Absolute Lymphocytes (CBC) 1.2 K/uL (0.7-4.9); Hematocrit 27.5 % (36.0-45.0); Lymphocytes % 22.4 % (15.3-44.8); MCV 92.6 fL (80-100); MPV 8.8 fL (7.6-11.3); RBC Red Blood Cell Count 2.97 M/uL (3.86-4.86)
[2022-03-25 21:10] LABS: ALT/SGPT 27 U/L (13-56); AST/SGOT 27 U/L (15-37); Albumin 3.3 g/dL (3.4-5.0); Alkaline Phosphatase 75 U/L (45-117); BUN Blood Urea Nitrogen 8 mg/dL (7-18); Bicarbonate 30 mmol/L (21-32); Bilirubin Total 0.3 mg/dL (0.2-1.0); Glomerular Filtration Rate 74 ml/min (=/>90); Glucose Level 88 mg/dL (74-106); Lipase 117 U/L (73-393); Magnesium 1.6 mg/dL (1.6-2.4); NT PRO-BNP 1368 pg/mL (<125); Potassium 3.4 mmol/L (3.5-5.1); Protein, Total 6.4 g/dL (6.4-8.2); Sodium Level 139 mmol/L (136-145)
[2022-03-25 21:12] LABS: Protime INR 5.37
[2022-03-25 21:14] LABS: Bilirubin Direct < 0.1 mg/dL (0-0.2)
[2022-03-25 21:34] LABS: SARS-COV-2 RT PCR NEGATIVE (NEGATIVE)
--- NOTE | 2022-03-25 21:54 | RAD REPORT ---
EXAM DESCRIPTION: RAD - Chest Single View - 03/25/2022 9:42 pm CLINICAL HISTORY: CHEST PAIN COMPARISON: 01/31/2022 FINDINGS: Lines: None. Lungs: No evidence of edema or pneumonia. Pleural: No significant pleural effusions or pneumothorax. Cardiac: Cardiomegaly. Mediastinum: Within normal limits. Bones: No acute fractures. Sternotomy Other: None IMPRESSION: No acute cardiopulmonary disease.
[2022-03-25 23:24] LABS: Urine Blood 2+ (Negative); Urine Glucose Negative (Negative); Urine Protein Negative (Negative); Urine Specific Gravity 1.015 (1.005-1.030)
[2022-03-25 23:28] LABS: Urine Bacteria <20 /HPF (<20)
[2022-03-25] MEDS ORDERED: HYDROMORPHONE HCL 0.5 MG/0.5 ML INJ ONE (23:48)
[2022-03-26] MEDS ORDERED: POTASSIUM 25 MEQ EFFERV TAB ONE (00:46)
[2022-03-26] MEDS ORDERED: POTASSIUM CL SA 10 MEQ TAB PO ONE (01:05)
--- NOTE | 2022-03-26 01:15 | ER ---
Nurse's Notes [facility] Name: Michelle Saavedra Age: 66 yrs Sex: Female : 1955 Arrival Date: 03/25/2022 Time: 19:48 Bed 6 Private MD: Diagnosis: Chest pain, unspecified;Abnormal coagulation profile Presentation: 03/25 20:21 Chief complaint: Patient states: My chest started to hurt real bad about an hour ago kd3 today. My stomach and back also hurts but my back always hurts. Coronavirus screen: Vaccine status: Patient reports being unvaccinated. Ebola Screen: No symptoms or risks identified at this time. Initial Sepsis Screen: Does the patient meet any 2 criteria? No. Patient's initial sepsis screen is negative. Does the patient have a suspected source of infection? No. Patient's initial sepsis screen is negative. Risk Assessment: Do you want to hurt yourself or someone else? Patient reports no desire to harm self or others. Onset of symptoms was March 25, 2022. 20:21 Method Of Arrival: Ambulatory kd3 20:21 Acuity: JAKUB 3 kd3 Triage Assessment: 20:23 General: Appears in no apparent distress. Behavior is cooperative. Pain: Complains of kd3 pain in chest. Pain: Complains of pain in back. Neuro: Level of Consciousness is awake, alert, obeys commands, Oriented to person, place, time, situation. Cardiovascular: Patient's skin is warm and dry. Respiratory: Airway is patent Trachea midline Respiratory effort is even, unlabored, Respiratory pattern is regular, symmetrical. Historical: - Allergies: 20:23 Morphine; kd3 - Home Meds: 20:23 Coumadin 1 mg Oral tab 1 tab once daily [Active]; kd3 - Immunization history:: Adult Immunizations not up to date. - Social history:: Smoking status: unknown. Screenin:24 Abuse screen: Denies threats or abuse. Denies injuries from another. Nutritional kd3 screening: No deficits noted. Tuberculosis screening: No symptoms or risk factors identified. 21:52 [facility] ED Fall Risk Assessment (Adult) History of falling in the last 3 months, kd3 including since admission No falls in past 3 months (0 pts) Confusion or Disorientation No (0 pts) Intoxicated or Sedated No (0 pts) Impaired Gait No (0 pts) Mobility Assist Device Used No (0 pt) Altered Elimination No (0 pt) Score/Fall Risk Level 0 - 2 = Low Risk. Humpty Dumpty Scale Fall Assessment Tool (age< 18yrs) Age 13 years and above (1 pt) Gender Female (1 pt) Diagnosis Other diagnosis (1 pt) Cognitive Impairments Oriented to own ability (1 pt) Environmental Factors Patient placed in bed (2 pts) Response to Surgery/Sedation/Anesthesia More than 48 hours/None (1 pt) Medication Usage Other medications/ None (1 pt) Fall Risk Score/ Level Low Fall Risk: < 11 points. Fall Risk No fall in past 12 months (0 pts). No secondary diagnosis (0 pts). IV access (20 points). Ambulatory Aid- None/Bed Rest/Nurse Assist (0 pts). Gait- Normal/Bed Rest/Wheelchair (0 pts) Mental Status- Oriented to own ability (0 pts). Total Fay Fall Scale indicates No Risk (0-24 pts). Assessment: 20:25 Pain: Pain does not radiate. Pain began gradually. kd3 20:30 General: Appears in no apparent distress. uncomfortable, well developed, Behavior is pf1 calm, cooperative, appropriate for age, quiet. 20:30 Pain: Complains of pain in chest Pain began gradually, 1 day ago. Neuro: No deficits pf1 noted. Level of Consciousness is awake, alert, obeys commands, Oriented to person, place, time, situation. Cardiovascular: Chest pain is described as Pain is 10 out of 10 on a pain scale. Respiratory: Airway is patent Respiratory effort is even, unlabored, Respiratory pattern is regular, symmetrical, Breath sounds are clear bilaterally. GI: Abdomen is flat, non-distended, Bowel sounds present X 4 quads. Reports Patient reports chronic generalized abdominal pain. : No deficits noted. No signs and/or symptoms were reported regarding the genitourinary system. EENT: No deficits noted. No signs and/or symptoms were reported regarding the EENT system. Derm: No deficits noted. No signs and/or symptoms reported regarding the dermatologic system. Musculoskeletal: Reports pain in Patient C/O chronic back pain. 22:51 General: Patient ambulated with steady gait to restroom. pf1 23:56 General: Patient taken to [facility]. pf1 Vital Signs: 20:21 BP 165 / 51; Pulse 74; Resp 21; Temp 98.1; Pulse Ox 100% on R/A; Weight 45.36 kg; Pain kd3 10/10; 21:52 BP 133 / 41; Pulse 50; Resp 16; Pulse Ox 97% on R/A; kd3 22:30 BP 142 / 58; Pulse 66; Resp 15; Temp 98; Pulse Ox 97% ; Pain 8/10; pf1 23:30 BP 142 / 43; Pulse 52; Resp 15; Temp 98.2; Pulse Ox 100% ; Pain 9/10; pf1 12/ 00:26 BP 130 / 49; Pulse 51; Resp 13; Pulse Ox 94% on R/A; kd3 01:32 BP 142 / 56; Pulse 49; Resp 13; Pulse Ox 98% on R/A; kd3 01:40 BP 135 / 51; Pulse 57; Resp 19; Pulse Ox 99% ; kd3 ED Course: 03/25 19:48 Patient arrived in ED. as 19:58 Gab Pollock PA is PHCP. cp 19:58 Ean Dumont MD is Attending Physician. cp 20:13 Radha Solorzano, PHILLIP is Primary Nurse. kd3 20:23 Triage completed. kd3 20:23 Arm band placed on right wrist. kd3 20:24 Patient has correct armband on for positive identification. Placed in gown. Bed in low kd3 position. Client placed on continuous cardiac and pulse oximetry monitoring. NIBP monitoring applied. 20:24 No provider procedures requiring assistance completed. Patient maintains SpO2 kd3 saturation greater than 95% on room air. 20:35 Inserted saline lock: 20 gauge in left antecubital area, using aseptic technique. Blood pf1 collected. 20:47 COVID-19/FLU A+B Sent. pf1 20:47 Basic Metabolic Panel Sent. pf1 20:47 CBC with Diff Sent. pf1 20:47 LFT's Sent. pf1 20:47 Magnesium Sent. pf1 20:47 NT PRO-BNP Sent. pf1 20:47 PT-INR Sent. pf1 20:47 Troponin HS Sent. pf1 21:08 XRAY Chest (1 view) In Process Unspecified. EDMS 21:12 Notified Nurse Practitioner and/or Physician Document Control Clerk of a critical lab result(s), INR kl [id number]. 12/12 00:13 Angio Aorta For Dissection In Process Unspecified. EDMS 01:13 Milton Schroeder MD is Hospitalizing Provider. cp 01:14 Patient admitted, IV remains in place. pf1 Administered Medications: 03/25 20:40 Drug: fentaNYL (PF) 25 mcg Route: IVP; Site: left antecubital; pf1 22:30 Follow up: Response: RASS: Alert and Calm (0) pf1 22:36 Follow up: Response: No adverse reaction; Pain is decreased pf1 23:24 CANCELLED (Physician Discretion): fentaNYL (PF) 25 mcg IVP once cp 23:50 Drug: Dilaudid (HYDROmorphone) 0.5 mg Route: IVP; Site: left antecubital; pf1 03/26 00:50 Follow up: Response: Pain is decreased; RASS: Alert and Calm (0) pf1 00:50 Follow up: Response: RASS: Alert and Calm (0) pf1 01:00 Not Given (Patient Refused): Potassium Effervescent Tablet 25 mEq PO once; dissolve in kd3 4 ounces of water or juice 01:08 Drug: Potassium Chloride 20 mEq Route: PO; kd3 01:40 Follow up: Response: No adverse reaction kd3 01:39 Drug: Dilaudid (HYDROmorphone) 1 mg Route: IVP; Site: left antecubital; kd3 02:30 Follow up: Response: No adverse reaction; Pain is decreased pf1 02:30 Follow up: Response: RASS: Alert and Calm (0) pf1 01:39 Drug: Aspirin Chewable Tablet 324 mg Route: PO; kd3 02:30 Follow up: Response: No adverse reaction; Pain is decreased pf1 02:30 Follow up: Response: RASS: Alert and Calm (0) pf1 Medication: 03/25 20:25 VIS not applicable for this client. kd3 Outcome: 03/26 01:14 Decision to Hospitalize by Provider. cp 01:14 Admitted to ER Hold. Please see [facility] for further documentation. pf1 01:14 Condition: stable pf1 01:14 Instructed on the need for admit, Demonstrated understanding of instructions. 18:19 Patient left the ED. ll1 Signatures: Dispatcher [employer] EDMS Meaghan Cyr RN RN kl Martinez, Amelia as Page, Corey, PA PA cp Ger, Lynsay, RN RN ll1 Radha Solorzano RN RN kd3 Babita schneider RN RN pf1 Corrections: (The following items were deleted from the chart) 03/25 22:41 20:30 GI: No deficits noted. No signs and/or symptoms were reported involving the pf1 gastrointestinal system. pf1
--- NOTE | 2022-03-26 01:15 | EDPHYS ---
Physician Documentation [facility] Name: Michelle Saavedra Age: 66 yrs Sex: Female : 1955 Arrival Date: 03/25/2022 Time: 19:48 Bed 6 Private MD: ED Physician Ean Dumont HPI: 03/25 20:40 This 66 yrs old Female presents to ER via Ambulatory with complaints of Chest cp Pain, Abdominal Pain, Back Pain. 20:40 The patient or guardian reports chest pain that is located primarily in the anterior cp chest wall. 20:40 Onset: today. The pain radiates to left back. Associated signs and symptoms: Pertinent cp positives: abdominal pain, Pertinent negatives: cough, lower extremity pain, lower extremity swelling. Historical: - Allergies: 20:23 Morphine; kd3 - Home Meds: 20:23 Coumadin 1 mg Oral tab 1 tab once daily [Active]; kd3 - Immunization history:: Adult Immunizations not up to date. - Social history:: Smoking status: unknown. ROS: 20:45 Constitutional: Negative for body aches, chills, fever, poor PO intake. cp 20:45 Cardiovascular: Positive for chest pain, Negative for edema, palpitations. cp 20:45 Respiratory: Negative for cough, shortness of breath, wheezing. cp 20:45 Eyes: Negative for injury, pain, redness, and discharge. cp 20:45 ENT: Negative for drainage from ear(s), ear pain, sore throat, difficulty swallowing, difficulty handling secretions. 20:45 Abdomen/GI: Positive for abdominal pain, Negative for vomiting, diarrhea, constipation. 20:45 Back: Positive for radiated pain. 20:45 : Negative for urinary symptoms. 20:45 Neuro: Negative for altered mental status, dizziness, headache, numbness, syncope, weakness. 20:45 All other systems are negative. Exam: 20:33 ECG was reviewed by the Attending Physician. cp 20:50 Constitutional: The patient appears in no acute distress, alert, awake, cp non-diaphoretic, non-toxic, well developed, well nourished. 20:50 Head/Face: Normocephalic, atraumatic. cp 20:50 Eyes: Periorbital structures: appear normal, Conjunctiva: normal, no exudate, no injection, Sclera: no appreciated abnormality, Lids and lashes: appear normal, bilaterally. 20:50 ENT: External ear(s): are unremarkable, Nose: is normal, Mouth: Lips: moist, Oral mucosa: pink and intact, moist, Posterior pharynx: Airway: no evidence of obstruction, patent. 20:50 Neck: ROM/movement: is normal, is supple, without pain, no range of motions limitations, no nuchal rigidity. 20:50 Chest/axilla: Inspection: normal, Palpation: is normal, no crepitus, no tenderness. 20:50 Cardiovascular: Rate: normal, Rhythm: regular, Edema: is not appreciated, JVD: is not appreciated. 20:50 Respiratory: the patient does not display signs of respiratory distress, Respirations: normal, no use of accessory muscles, no retractions, labored breathing, is not present, Breath sounds: are clear throughout, no decreased breath sounds, no stridor, no wheezing. 20:50 Abdomen/GI: Inspection: abdomen appears normal, Bowel sounds: active, all quadrants, Palpation: soft, in all quadrants, moderate abdominal tenderness, in all quadrants, rebound tenderness, is not appreciated, involuntary guarding, is not appreciated. 20:50 Back: CVA tenderness, is absent. 20:50 Skin: cellulitis, is not appreciated, no rash present. 20:50 Neuro: Orientation: to person, place \T\ time. Mentation: is normal, Motor: moves all fours, strength is normal, Sensation: is normal. 23:34 ECG was reviewed by the Attending Physician. cp Vital Signs: 20:21 BP 165 / 51; Pulse 74; Resp 21; Temp 98.1; Pulse Ox 100% on R/A; Weight 45.36 kg; Pain kd3 10/10; 21:52 BP 133 / 41; Pulse 50; Resp 16; Pulse Ox 97% on R/A; kd3 22:30 BP 142 / 58; Pulse 66; Resp 15; Temp 98; Pulse Ox 97% ; Pain 8/10; pf1 23:30 BP 142 / 43; Pulse 52; Resp 15; Temp 98.2; Pulse Ox 100% ; Pain 9/10; pf1 12/12 00:26 BP 130 / 49; Pulse 51; Resp 13; Pulse Ox 94% on R/A; kd3 01:32 BP 142 / 56; Pulse 49; Resp 13; Pulse Ox 98% on R/A; kd3 01:40 BP 135 / 51; Pulse 57; Resp 19; Pulse Ox 99% ; kd3 MDM: 03/25 20:04 Patient medically screened. cp 21:00 Differential diagnosis: abnormal EKG, acute myocardial infarction, pericarditis, cp pleurisy, pneumonia, pneumothorax, pulmonary embolus, stable angina, thoracic aortic disection, unstable angina. 03/26 01:45 Data reviewed: vital signs, nurses notes, lab test result(s), EKG, radiologic studies, cp CT scan, plain films, I have discussed the patient's presentation/case with the attending Emergency Department Physician; and as a result, I will admit patient. 01:45 The patient was given aspirin in the Emergency Department. Test interpretation: by ED cp physician or midlevel provider: ECG, plain radiologic studies. 03/25 20:34 Order name: Basic Metabolic Panel; Complete Time: 21:49 03/25 21:49 Interpretation: Normal except: K 3.4; GFR 74; CA 8.4. 03/25 20:34 Order name: CBC with Diff; Complete Time: 21:49 03/25 21:50 Interpretation: Normal except: RBC 2.97; HGB 8.9; HCT 27.5; RDW 19.2; NEUT A 3.5. 03/25 20:34 Order name: LFT's; Complete Time: 21:49 03/25 21:50 Interpretation: Normal except: ALB 3.3. 03/25 20:34 Order name: Magnesium; Complete Time: 21:49 03/25 20:34 Order name: NT PRO-BNP; Complete Time: 21:49 03/25 21:51 Interpretation: Abnormal: NT PRO-BNP 1368. 03/25 20:34 Order name: PT-INR; Complete Time: 21:49 cp 03/25 21:50 Interpretation: Abnormal: PT 59.1; INR 5.37. 03/25 20:34 Order name: Troponin HS; Complete Time: 21:49 cp 03/25 20:34 Order name: Lipase; Complete Time: 21:49 cp 03/25 20:34 Order name: Ptt, Activated; Complete Time: 21:49 03/25 20:41 Order name: COVID-19/FLU A+B; Complete Time: 21:49 03/25 23:10 Order name: Urine Microscopic Only; Complete Time: 23:39 03/25 23:39 Interpretation: Abnormal: URBC 11-20. 03/25 23:24 Order name: Urine Dipstick-Ancillary; Complete Time: 23:27 [facility] 03/26 01:59 Order name: CKMB Creatine Kinase MB [facility] 03/26 01:59 Order name: CKMB Creatine Kinase MB [facility] 03/25 20:34 Order name: XRAY Chest (1 view); Complete Time: 21:55 03/25 21:55 Interpretation: Report review. 03/25 23:27 Order name: CT Aorta for Dissection 03/25 23:46 Order name: Angio Aorta For Dissection [facility] 03/26 01:59 Order name: CKMB Creatine Kinase MB [facility] 03/26 01:59 Order name: CKMB Creatine Kinase MB [facility] 03/26 01:59 Order name: Creatine Phosphokinase [facility] 03/26 01:59 Order name: Creatine Phosphokinase [facility] 03/26 01:59 Order name: Creatine Phosphokinase [facility] 03/26 01:59 Order name: Creatine Phosphokinase [facility] 03/26 02:00 Order name: Troponin High Sensitivity [facility] 03/26 11:23 Order name: Troponin High Sensitivity [facility] 03/25 20:34 Order name: EKG; Complete Time: 20:34 03/25 20:34 Order name: Cardiac monitoring; Complete Time: 20:37 03/25 20:34 Order name: EKG - Nurse/Tech; Complete Time: 20:37 03/25 20:34 Order name: IV Saline Lock; Complete Time: 20:37 03/25 20:34 Order name: Labs collected and sent; Complete Time: 20:43 03/25 20:34 Order name: O2 Per Protocol; Complete Time: 20:37 03/25 20:34 Order name: O2 Sat Monitoring; Complete Time: 20:37 03/25 23:10 Order name: Urine Dipstick-Ancillary (obtain specimen); Complete Time: 23:37 03/26 01:59 Order name: Heart Healthy EDMS EC/11 20:33 Rate is 49 beats/min. Rhythm is regular. ME interval is prolonged at 202 msec. QRS cp interval is normal. QT interval is normal at 500 msec. T waves are Inverted in lead aVR. Interpreted by me. Reviewed by me. 23:34 Rate is 52 beats/min. Rhythm is regular. ME interval is prolonged at 208 msec. QRS cp interval is prolonged at 108 msec. QT interval is normal. T waves are Inverted in lead aVR. Interpreted by me. Reviewed by me. Administered Medications: 20:40 Drug: fentaNYL (PF) 25 mcg Route: IVP; Site: left antecubital; pf1 22:30 Follow up: Response: RASS: Alert and Calm (0) pf1 22:36 Follow up: Response: No adverse reaction; Pain is decreased pf1 23:24 CANCELLED (Physician Discretion): fentaNYL (PF) 25 mcg IVP once cp 23:50 Drug: Dilaudid (HYDROmorphone) 0.5 mg Route: IVP; Site: left antecubital; pf1 03/26 00:50 Follow up: Response: Pain is decreased; RASS: Alert and Calm (0) pf1 00:50 Follow up: Response: RASS: Alert and Calm (0) pf1 01:00 Not Given (Patient Refused): Potassium Effervescent Tablet 25 mEq PO once; dissolve in kd3 4 ounces of water or juice 01:08 Drug: Potassium Chloride 20 mEq Route: PO; kd3 01:40 Follow up: Response: No adverse reaction kd3 01:39 Drug: Dilaudid (HYDROmorphone) 1 mg Route: IVP; Site: left antecubital; kd3 02:30 Follow up: Response: No adverse reaction; Pain is decreased pf1 02:30 Follow up: Response: RASS: Alert and Calm (0) pf1 01:39 Drug: Aspirin Chewable Tablet 324 mg Route: PO; kd3 02:30 Follow up: Response: No adverse reaction; Pain is decreased pf1 02:30 Follow up: Response: RASS: Alert and Calm (0) pf1 Disposition: 22:32 Co-signature as Attending Physician, Ean Dumont MD. rn Disposition Summary: 03/26/22 01:14 Hospitalization Ordered Hospitalization Status: Observation cp Provider: Milton Schroeder cp Condition: Stable cp Problem: new cp Symptoms: have improved cp Bed/Room Type: Standard cp Location: Telemetry/MedSurg (observation)(03/26/22 16:14) bd Room Assignment: 210(03/26/22 16:14) bd Diagnosis - Chest pain, unspecified cp - Abnormal coagulation profile cp Forms: - Medication Reconciliation Form cp - SBAR form cp Signatures: Dispatcher [employer] EDRashmi Sandraara Ean Dorantes MD MD rn Page, Corey, PA PA cp Garcia, Cindy, RN RN cg Radha Solorzano, PHILLIP RN kd3 Babita schneider RN RN pf1 Corrections: (The following items were deleted from the chart) 03/25 21:50 21:49 Normal except: RBC 2.97; HGB 8.9; HCT 27.5; RDW 19.2. cp cp 21:50 21:50 Normal except: RBC 2.97; HGB 8.9; HCT 27.5; NEUT A 3.5; RDW 19.2. cp cp 23:24 23:22 fentaNYL (PF) 25 mcg IVP once ordered. cp cp 03/26 00:45 03/25 20:33 Rate is 49 beats/min. Rhythm is regular. ME interval is prolonged at 202 cp msec. QRS interval is normal. QT interval is normal at 500 msec. T waves are Inverted in lead aVR. Interpreted by me. Reviewed by me. cp 03/26 02:18 01:14 Telemetry/MedSurg (observation) cp cg 02:18 01:14 cp cg 16:14 02:18 [facility] ER HOLD cg bd 16:14 02:18 ERHOLD- cg bd
[2022-03-26] MEDS ORDERED: HYDROMORPHONE HCL 1 MG/ML INJ ONE (01:32)
[2022-03-26] MEDS ORDERED: ASPIRIN 81 MG CHEWABLE TABLET ONE (01:39)
[2022-03-26] MEDS ORDERED: ACETAMINOPHEN 325 MG TABLET PO PRN (01:53)
[2022-03-26] MEDS ORDERED: ONDANSETRON 4 MG/2 ML VIAL IV PRN (01:53)
--- NOTE | 2022-03-26 01:59 | P.HP ---
Certification for Inpatient Patient admitted to: Observation With expected LOS: <2 Midnights Practitioner: I am a practitioner with admitting privileges, knowledge of patient current condition, hospital course, and medical plan of care. Services: Services provided to patient in accordance with Admission requirements found in Title 42 Section 412.3 of the Code of Federal Regulations Patient History Date of Service: 03/26/22 Reason for admission: Chest pain. History of Present Illness: 60 female patient with medical history significant for hypertension, atrial fibrillation, status post aortic valve replacement, hyperlipidemia, history of diastolic CHF was evaluated in the emergency for episode of chest pain. Chest pain is rated 10 out of 10 in intensity and is located in the retrosternal region. No radiation to the jaw or left arm. No association with exertion, no fever, chills, rigor, nausea, vomiting, shortness of breath episode at rest. Labs revealed elevated BNP and anemia with hemoglobin of 8.9. She was asked evaluated for ACS work-up. Allergies morphine Allergy (Intermediate, Verified 12/25/21 01:15) panic ATTACK; shaking fentanyl Allergy (Verified 12/25/21 01:15) Itching Home Medications: Alendronate Sodium 70 mg PO EVERY 7TH DAY 12/25/21 Atorvastatin Calcium 40 mg PO DAILY 12/25/21 Furosemide [Lasix*] 20 mg PO DAILY 12/25/21 Gabapentin 300 mg PO BID 12/25/21 Metoprolol Tartrate [Lopressor*] 12.5 mg PO BID 12/25/21 Pantoprazole [Protonix Tab*] 40 mg PO BID 12/25/21 Warfarin Sodium [Coumadin*] 2 mg PO DAILY 12/25/21 Zolpidem Tartrate [Ambien*] 10 mg PO BEDTIME 12/25/21 traMADol HCL [Ultram*] 50 mg PO TID PRN #12 tab 12/25/21 - Past Medical/Surgical History Diabetic: No -: Atrial fibrillation on warfarin -: depression -: HTN -: Chronic diastolic congestive heart failure -: GERD -: mechanical aortic valve -: palpitations -: Atrial fibrillation on warfarin -: Chronic diastolic congestive heart failure -: aortic valve replacement -: cardioversion -: tubal ligation Psychosocial/ Personal History: Patient lives at home with her children - Family History Brother -: Heart disease, Cancer Notes: heart attack Mother -: Heart disease, Diabetes Notes: of heart attack Father -: Heart disease Notes: of heart attack Sister -: Heart disease, Diabetes, Cancer Notes: sisters x2 - DM. sister x1 - heart attack. sister- lung cancer - Social History Smoking Status: Never smoker Alcohol use: Yes CD- Drugs: No Caffeine use: No Review of Systems General: Unremarkable Eyes: Unremarkable ENT: Unremarkable Respiratory: Unremarkable Cardiovascular: Chest Pain Gastrointestinal: Unremarkable Genitourinary: Unremarkable Musculoskeletal: Unremarkable Neurological: Unremarkable Lymphatics: Unremarkable Physical Examination - Physical Exam General: Alert, Oriented x3 HEENT: Atraumatic, Normocephalic Neck: Supple Respiratory: Normal air movement Cardiovascular: Normal pulses, Regular rate/rhythm Gastrointestinal: Soft and benign Neurological: Normal speech, Normal strength at 5/5 x4 extr - Studies Laboratory Data (last 24 hrs) 03/25/22 20:30: PT 59.1 H, INR 5.37 H*, APTT 49.9 H 03/25/22 20:30: WBC 5.50, Hgb 8.9 L, Hct 27.5 L, Plt Count 198 03/25/22 20:30: Sodium 139, Potassium 3.4 L, BUN 8, Creatinine 0.86, Glucose 88, Magnesium 1.6, Total Bilirubin 0.3, AST 27, ALT 27, Alkaline Phosphatase 75, Lipase 117 Assessment and Plan - Plan Chest pain: Concerning for ACS. Initial troponin is normal. Continue telemetry monitoring and trend cardiac markers. Will obtain echocardiogram to assess cardiac function. Will obtain lipid panel and continue aspirin and statin therapy. Cardiology to evaluate as needed. Atrial fibrillation: On warfarin with supratherapeutic INR 5.3 per Will hold for adjustment Monitor INR daily. Hypertension: We will monitor vital signs per unit protocol and continue antihypertensive medications. Anemia: Hemoglobin is low at 8.9. Monitor on daily labs. Prophylaxis: Supratherapeutic INR will suffice for DVT prophylaxis. SCDs to be continued. CODE STATUS: Full code Disposition: We will work-up ACS and discharge when she is clinically stable. - Advance Directives Does patient have a Living Will: No Does patient have a Durable POA for Healthcare: No
[2022-03-26 03:23] LABS: Creatine Phosphokinase 96 U/L (26-192)
[2022-03-26 03:24] VITALS: BMI 17.6
[2022-03-26 03:28] LABS: CKMB Creatine Kinase MB < 1.0 ng/mL (1.0-3.6)
[2022-03-26] MEDS ORDERED: HYDROMORPHONE HCL 0.5 MG/0.5 ML INJ IV PRN (03:35)
[2022-03-26] MEDS ORDERED: MAGNES/ALUMIN/SIMET 30ML UCUP PO PRN (03:36)
[2022-03-26] MEDS ORDERED: MAGNES/ALUMIN/SIMET 30ML UCUP ONE (04:00)
[2022-03-26] MEDS ORDERED: HYDROMORPHONE HCL 0.5 MG/0.5 ML INJ ONE ×2 (04:01→09:59)
[2022-03-26] MEDS ORDERED: HYDROCODONE/APAP 7.5/325 MG TAB ONE (08:37)
[2022-03-26] MEDS: HYDROCODONE/APAP 7.5/325 MG TAB PO PRN ×2 (08:49→21:18)
[2022-03-26 08:54] VITALS: O2SAT 96
[2022-03-26] MEDS: HYDROMORPHONE HCL 0.5 MG/0.5 ML INJ IV PRN ×2 (10:09→16:04)
--- NOTE | 2022-03-26 14:56 | EKG ---
Test Date: 2022-03-25 Test Time: 20:27:37 Cutting And Splicing Supervisor: RV MEASUREMENT RESULTS: Intervals: Rate: 49 NV: 202 QRSD: 96 QT: 500 QTc: 451 [place]: P: 98 NV: 202 QRS: 73 T: 59 INTERPRETIVE STATEMENTS: Sinus bradycardia Nonspecific ST abnormality Abnormal ECG Compared to ECG 03/25/2022 20:25:35 No significant changes Electronically Signed On 03-26-22 14:55:10 WILDLIFE TECHNICIAN by Jam Bolanos
--- NOTE | 2022-03-26 14:56 | EKG ---
Test Date: 2022-03-25 Test Time: 23:30:11 Construction Or Leak Gang Laborer: VISHAL MEASUREMENT RESULTS: Intervals: Rate: 52 AR: 208 QRSD: 108 QT: 484 QTc: 450 [place]: P: 55 AR: 208 QRS: 98 T: 22 INTERPRETIVE STATEMENTS: Sinus bradycardia Rightward axis Nonspecific ST abnormality Abnormal ECG Compared to ECG 03/25/2022 20:27:37 Right-axis deviation now present ST (T wave) deviation still present Electronically Signed On 03-26-22 14:54:59 CONSERVATION POLICY ANALYST by Jam Bolanos
--- NOTE | 2022-03-26 14:57 | EKG ---
Test Date: 2022-03-25 Test Time: 20:25:35 Reproducer: RV MEASUREMENT RESULTS: Intervals: Rate: 53 NH: 206 QRSD: 96 QT: 502 QTc: 471 [place]: P: 74 NH: 206 QRS: 74 T: 30 INTERPRETIVE STATEMENTS: Sinus bradycardia Nonspecific ST abnormality Abnormal ECG Compared to ECG 01/31/2022 18:20:47 No significant changes Electronically Signed On 03-26-22 14:55:12 CONCRETE PIPE MACHINE OPERATOR by Jma Bolanos
--- NOTE | 2022-03-26 17:28 | P.PN ---
Date of Service: 03/26/22 Patient seen on rounds. Reports having 2 pains: 1 - she labels as "indigestion" which was moderate-severe last night and has resolved 2 - substernal and left sided, still persists She does have cardiac history and at risk for ACS Troponin negative so far, continue to trend Cardiology consulted - Dr. Bolanos recommends stress test tomorrow
--- NOTE | 2022-03-26 18:23 | RAD REPORT ---
EXAM DESCRIPTION: CT - Angio Aorta For Dissection - 03/26/2022 6:58 am CLINICAL HISTORY: 66 years, Female, chest pain COMPARISON: 01/31/2022. TECHNIQUE: Multiple transaxial tomograms from the thoracic and abdominal aorta from the lung apex to the ischial tuberosities performed before and after the administration of large bolus of IV contrast for complete opacification of the thoracic, abdominal aorta and iliac arteries utilizing 3 mm slice thickness at 3 mm interval reconstruction. 2-D and 3-D multiplanar reformats, volume rendering technique and maximum intensity projection images were generated and reviewed. This exam was performed according to our departmental dose-optimization protocol, which includes auto mated exposure control, adjustment of the mA and/or kV according to patient size and/or use of iterat ivon reconstruction technique. FINDINGS: Thoracic aorta: The thoracic aorta demonstrate diffuse atherosclerotic disease. Findings just perhaps previous ascend ing thoracic aortic repair. No definitive evidence for dissection. No significant aneurysm. The desce nding thoracic aorta measured 3.9 x 3.7 cm on axial image 55 and sagittal image 80/139. There is normal branching pattern of the great vessels with no evidence for significant stenosis/or p roximal occlusion Abdominal aorta: The abdominal aorta demonstrate minimal atherosclerotic disease. No evidence for dissection/or aneury sm. Bilateral iliac arteries demonstrate minimal atheromatous plaque dimension with no evidence for s tenosis/or occlusion. The celiac trunk, superior mesenteric artery and inferior mesenteric artery demonstrate to be patent. No evidence for significant stenosis/or occlusion. There are single bilateral renal arteries with minimal atherosclerotic disease at the ostium although no significant stenosis is identified. Chest: The lung parenchyma demonstrate to be clear. No pulmonary nodules and/or masses. The trachea mainstem bronchus demonstrate to be unremarkable. There is no pleural/or pericardial effusions. The heart is normal in size. No significant coronary artery calcifications. There is no significant mediastinal and/or hilar lymphadenopathy. The axillary regions demonstrate to be clear. The bone windows demonstrate no significant skeletal lesions. Abdomen and pelvis: The liver, spleen, adrenal glands, pancreas demonstrate to be unremarkable. There is cholelithiasis. The kidneys demonstrate no evidence for nephrolithiasis/or hydronephrosis. There is a small hiatal hernia. Grossly the unopacified stomach, small bowel and large bowel demonstr ate to be unremarkable. There is no evidence for bowel dilatation/or free air. There is diverticulosi s within the sigmoid colon. The urinary bladder demonstrate to unremarkable. The uterus is normal. There is no adnexal masses. Th ere is no retroperitoneal lymphadenopathy. There is no evidence for ascites. The bone windows demonst rate diffuse bony osteopenia. There is superior compression deformity at L1 with loss of at least 50% vertebral body height. No evidence for retropulsion. IMPRESSION: Diffuse atherosclerotic disease of the thoracic and abdominal aorta with no evidence for dissection and/or aneurysm. Findings suggest perhaps previous ascending thoracic aortic repair. Again there is mild dilatation de scending thoracic aorta with a maximum diameter of 3.9 cm. Cholelithiasis. Small hiatal hernia. Sigmoid diverticulosis without evidence for acute diverticulitis. Diffuse bony osteopenia with superior compression deformity at L1 with loss of at least 50% vertebral body height. Electronically signed by: David Wilson MD 03/26/2022 12:55 AM JEWEL INSERTER Due to temporary technical issues with the PACS/Fluency reporting system, reports are being signed by the in house radiologists without review as a courtesy to insure prompt reporting. The interpreting radiologist is fully responsible for the content of the report.
[2022-03-26] MEDS: METOPROLOL TAR 25 MG TAB PO SCH (20:25)
[2022-03-26] MEDS: GABAPENTIN 300 MG CAP PO SCH (20:26)
[2022-03-26] MEDS: PANTOPRAZOLE 40MG TABLET PO SCH (20:26)
[2022-03-26] MEDS: ZOLPIDEM TARTRATE 10 MG TABLET PO SCH (20:26)
[2022-03-27] MEDS: HYDROMORPHONE HCL 0.5 MG/0.5 ML INJ IV PRN ×3 (04:34→18:50)
[2022-03-27 06:00] LABS: Hematocrit 26.4 % (36.0-45.0); MCV 92.5 fL (80-100); MPV 8.6 fL (7.6-11.3); RBC Red Blood Cell Count 2.86 M/uL (3.86-4.86)
[2022-03-27 06:20] LABS: Magnesium 2.1 mg/dL (1.6-2.4); Potassium 3.9 mmol/L (3.5-5.1)
[2022-03-27] MEDS: METOPROLOL TAR 25 MG TAB PO SCH ×2 (07:39→21:13)
[2022-03-27] MEDS: ATORVASTATIN 40 MG TAB PO SCH (08:02)
[2022-03-27] MEDS: HYDROCODONE/APAP 7.5/325 MG TAB PO PRN ×2 (08:02→23:01)
[2022-03-27] MEDS: PANTOPRAZOLE 40MG TABLET PO SCH ×2 (08:02→21:13)
[2022-03-27] MEDS: GABAPENTIN 300 MG CAP PO SCH ×2 (08:02→21:09)
[2022-03-27] MEDS ORDERED: REGADENOSON 0.4 MG/5 ML SYR IV ONE (09:36)
--- NOTE | 2022-03-27 12:20 | RAD REPORT ---
EXAM DESCRIPTION: NM - Rest Stress Cardiac Imaging - 03/27/2022 12:11 pm CLINICAL HISTORY: Chest pain COMPARISON: None. TECHNIQUE: The patient was administered 9.8 mCi of Tc 99m Sestamibi prior to resting SPECT imaging o f the heart. The patient was then administered 32.1 mCi of Tc 99m Sestamibi following exercise or pha rmacologic stress. Multiplanar SPECT images were reviewed. FINDINGS: The end diastolic volume is 65 ml, the end systolic volume is 13 ml, and the ejection frac tion is 81 %. No stress-induced ischemic changes are identifiable. There is a small fixed defect along the anterior wall near the apex unchanged between rest and stress imaging. Moderately large inferolateral fixed d efect is also seen. The inferolateral defect is suspected to be artifact from the diaphragm rather th an scarring. The anterior wall defect is less certain but could potentially be breast attenuation. A small focus of scarring is possible. Significance scarring is unlikely given the high value ejection fraction. IMPRESSION: No stress-induced ischemic change identifiable. Inferolateral moderate-sized fixed defects suspected to be diaphragmatic attenuation artifact rather than scarring. Small anterior wall fixed defect that is less definitive for scarring versus attenuation artifact. Si gnificant left ventricular scarring is unlikely given an 81% ejection fraction.
--- NOTE | 2022-03-27 19:09 | P.PN ---
Subjective Date of Service: 03/27/22 Chief Complaint: Chest pain. Patient denies any chest pain. No issues overnight. Physical Examination - Vital Signs Temperature: 97.6 F Blood Pressure: 132/59 Pulse: 63 Respirations: 18 Pulse Ox (%): 95 - Studies Laboratory Data (last 24 hrs) 03/27/22 05:42: Sodium 141, Potassium 3.9, BUN 8, Creatinine 0.88, Glucose 86, Magnesium 2.1 03/27/22 05:42: WBC 4.30, Hgb 8.5 L, Hct 26.4 L, Plt Count 180 Assessment And Plan - Current Problems (Diagnosis) (1) Chest pain Current Visit: No Status: Acute Qualifiers: Chest pain type: unspecified Qualified Code(s): R07.9 - Chest pain, unspecified (2) Anemia of chronic disease Current Visit: No Status: Chronic (3) Chronic atrial fibrillation Current Visit: No Status: Chronic (4) HTN (hypertension) Current Visit: No Status: Chronic Qualifiers: Hypertension type: primary hypertension Qualified Code(s): I10 - Essential (primary) hypertension (5) Supratherapeutic INR Current Visit: Yes Status: Acute - Plan Physical Exam General: Alert, Oriented x3 HEENT: Atraumatic, Normocephalic Neck: Supple Respiratory: Normal air movement Cardiovascular: Normal pulses, Regular rate/rhythm Gastrointestinal: Soft and benign Neurological: Normal speech, Normal strength at 5/5 x4 extr Plan: Currently asymptomatic. Nuclear stress test shows no reversible ischemia. It does report some fixed defect. Case discussed with Dr. Bolanos cardiology. Dr. Bolanos recommended echocardiogram which is ordered. Coumadin is on hold due to supratherapeutic INR. Monitor INR daily and resume Coumadin once INR is 2 or less. Continue metoprolol. Add aspirin once INR is therapeutic. Hemoglobin has been stable. Continue to monitor CBC.
[2022-03-27] MEDS: ZOLPIDEM TARTRATE 10 MG TABLET PO SCH (21:13)
[2022-03-28] MEDS: HYDROMORPHONE HCL 0.5 MG/0.5 ML INJ IV PRN ×3 (01:45→14:07)
[2022-03-28 05:03] LABS: Absolute Lymphocytes (CBC) 1.3 K/uL (0.7-4.9); Hematocrit 29.7 % (36.0-45.0); Lymphocytes % 21.9 % (15.3-44.8); MCV 93.6 fL (80-100); MPV 8.8 fL (7.6-11.3); RBC Red Blood Cell Count 3.17 M/uL (3.86-4.86)
[2022-03-28 05:06] LABS: Protime INR 2.92
[2022-03-28 05:19] LABS: Potassium 3.8 mmol/L (3.5-5.1)
[2022-03-28 07:01] LABS: Phosphorus 4.5 mg/dL (2.5-4.9)
--- NOTE | 2022-03-28 07:45 | TREADPHA ---
DX: CHEST PAIN Date of Study: 03/27/2022 Ht: 5' 3 " Wt: 100 lb 0 oz Consulting Physician: BERENICE MEDICATIONS: TYLENOL, NORCO, LIPITOR, NEURONTIN, LOPRESSOR, ZOFRAN, PROTONIX, AMBIEN HISTORY: PHYSICIAL EXAMINATION: RESTING B.P.: 148/68 RESTING H.R.: 59 RESTING EKG: NORMAL SINUS RHYTHM, DIFFUSE ST DEPRESSION PROTOCOL: PHARMACOLOGIC EXERCISE TIME: 3:30 B.P. AT [facility] STRESS: 121/60 IMPRESSION: LEXISCAN INJECTED. CARDIOLITE INJECTED (SEE NUCLEAR MEDICINE REPORT). NO VENTRICULAR TACHYCARDIA/ SUPRAVENTRICULAR TACHYCARDIA. COMPLAINTS OF NAUSEA/ ABDOMINAL PAIN/ KIHGT HEADED. NO CHEST PAIN. NO PREMATURE VENTRICULAR COMPLEXES NOTED DURING TEST. NON-DIAGNOSTIC ELECTROCARDIOGRAM PORTION OF THE TEST.
[2022-03-28] MEDS: GABAPENTIN 300 MG CAP PO SCH (08:02)
[2022-03-28] MEDS: PANTOPRAZOLE 40MG TABLET PO SCH (08:02)
[2022-03-28] MEDS: ATORVASTATIN 40 MG TAB PO SCH (08:02)
[2022-03-28] MEDS: METOPROLOL TAR 25 MG TAB PO SCH (08:08)
[2022-03-28] MEDS ORDERED: POTASSIUM CL SA 10 MEQ TAB PO ONE (09:00)
[2022-03-28 17:37] VITALS: BP 136/61; TEMP 97
--- NOTE | 2022-03-28 17:46 | P.DS ---
Admission Date: 03/27/22 Discharge Date: 03/28/22 Disposition: ROUTINE DISCHARGE Discharge Condition: FAIR Reason for Admission: Chest pain. - Problems (1) Chest pain Current Visit: No Status: Acute Qualifiers: Chest pain type: unspecified Qualified Code(s): R07.9 - Chest pain, unspecified (2) Anemia of chronic disease Current Visit: No Status: Chronic (3) Chronic atrial fibrillation Current Visit: No Status: Chronic (4) HTN (hypertension) Current Visit: No Status: Chronic Qualifiers: Hypertension type: primary hypertension Qualified Code(s): I10 - Essential (primary) hypertension (5) Supratherapeutic INR Current Visit: Yes Status: Acute Brief History of Present Illness: 60 female patient with medical history significant for hypertension, atrial fibr illation, status post aortic valve replacement, hyperlipidemia, history of diastolic CHF was evaluated in the emergency for episode of chest pain. Chest pain rated at 10 out of 10 in intensity and is located in the retrosternal region. No radiation to the jaw or left arm. No association with exertion, no fever, chills, rigor, nausea, vomiting, shortness of breath episode at rest. Labs revealed elevated BNP and anemia with hemoglobin of 8.9. Initial troponin negative, chest x-ray unremarkable. She was placed under observation for ACS rule out. Hospital Course: Patient admitted to the medical floor, troponin trended negative. She was seen and evaluated by cardiology Dr. Bolanos recommended stress test. Stress test demonstrated fixed defect, no reversible ischemia. Echocardiogram done and the result is pending. Patient chest pain appears atypical. She was complaining of pain all over, pain more pronounced on bilateral shoulders. Her pain was relieved with [place]. Patient is on chronic warfarin therapy. Her INR was elevated to 5.3. Warfarin was held during the hospital stay. INR has decreased to 2.9 which is therapeutic level. Patient was on warfarin 2 mg daily at home. Warfarin dose decreased to 1 mg daily and patient informed to check her INR within 3 days for Coumadin dose adjustment by her PCP. Patient also prescribed aspirin for CAD. Continue metoprolol. Her hemoglobin was stable. Vitals are stable. Patient is deemed clinically stable for discharge. Vital Signs/Physical Exam: Temp Pulse Resp BP Pulse Ox 97.0 F 64 18 136/61 96 03/28/22 16:00 03/28/22 16:00 03/28/22 16:00 03/28/22 16:00 03/28/22 16:00 General: Alert, In no apparent distress, Oriented x3 HEENT: Mucous membr. moist/pink Neck: Supple, JVD not distended Respiratory: Clear to auscultation bilaterally, Normal air movement Cardiovascular: No edema, Normal S1 S2 Gastrointestinal: Soft and benign, Non-distended Musculoskeletal: No swelling Integumentary: No rashes Neurological: Normal strength at 5/5 x4 extr Laboratory Data at Discharge: WBC 6.00 K/uL (4.3-10.9) 03/28/22 04:33 Hgb 9.6 g/dL (12.0-15.0) L D 03/28/22 04:33 Hct 29.7 % (36.0-45.0) L 03/28/22 04:33 Plt Count 237 K/uL (152-406) D 03/28/22 04:33 PT 32.1 SECONDS (9.5-12.5) H 03/28/22 04:33 INR 2.92 03/28/22 04:33 APTT 49.9 SECONDS (24.3-36.9) H 03/25/22 20:30 Sodium 141 mmol/L (136-145) 03/28/22 04:53 Potassium 3.8 mmol/L (3.5-5.1) 03/28/22 04:53 BUN 10 mg/dL (7-18) 03/28/22 04:53 Creatinine 0.90 mg/dL (0.55-1.02) 03/28/22 04:53 Glucose 99 mg/dL (74-106) 03/28/22 04:53 Phosphorus 4.5 mg/dL (2.5-4.9) 03/28/22 04:53 Magnesium 2.1 mg/dL (1.6-2.4) 03/27/22 05:42 Total Bilirubin 0.3 mg/dL (0.2-1.0) 03/25/22 20:30 AST 27 U/L (15-37) 03/25/22 20:30 ALT 27 U/L (13-56) 03/25/22 20:30 Alkaline Phosphatase 75 U/L (45-117) 03/25/22 20:30 Lipase 117 U/L (73-393) 03/25/22 20:30 Home Medications: Alendronate Sodium 70 mg PO EVERY 7TH DAY 12/25/21 Atorvastatin Calcium 40 mg PO DAILY 12/25/21 Furosemide [Lasix*] 20 mg PO DAILY 12/25/21 Gabapentin 300 mg PO BID 12/25/21 Metoprolol Tartrate [Lopressor*] 12.5 mg PO BID 12/25/21 Pantoprazole [Protonix Tab*] 40 mg PO BID 12/25/21 Zolpidem Tartrate [Ambien*] 10 mg PO BEDTIME 12/25/21 traMADol HCL [Ultram*] 50 mg PO TID PRN #12 tab 12/25/21 Aspirin [Aspirin EC 81 MG] 81 mg PO DAILY #30 tab 03/28/22 Ensure Enlive 237 ml PO BID #30 can 03/28/22 Warfarin Sodium 1 mg PO DAILY #30 tab 03/28/22 New Medications: Aspirin [Aspirin EC 81 MG] 81 mg PO DAILY #30 tab Ensure Enlive 237 ml PO BID #30 can Warfarin Sodium 1 mg PO DAILY #30 tab Physician Discharge Instructions: Please check your INR within 3 days and call your PCP with result for warfarin dose adjustment. Diet: AHA Activity: Ad fransisco Followup: Saurabh Dobson MD [Primary Care Provider] - 1-2 Weeks Jam Bolanos MD [ACTIVE - CAN ADMIT] - (Within 2-4 weeks.) Time spent managing pt's care (in minutes): 36
[2022-03-28] MEDS: HYDROCODONE/APAP 7.5/325 MG TAB PO PRN (18:08)
[2022-03-28] MEDS ORDERED: ENSURE ENLIVE 237 ML CAN PO SCH (21:00)
--- NOTE | 2022-03-29 08:07 | EKG ---
Test Date: 2022-03-27 Test Time: 18:35:51 Sorting Machine Attendant: DEIDRE MEASUREMENT RESULTS: Intervals: Rate: 136 ND: QRSD: 100 QT: 322 QTc: 484 [place]: P: ND: QRS: 51 T: 184 INTERPRETIVE STATEMENTS: Atrial fibrillation with rapid ventricular response Marked ST abnormality, possible inferior subendocardial injury Abnormal ECG Compared to ECG 03/25/2022 23:30:11 Sinus bradycardia no longer present Right-axis deviation no longer present ST (T wave) deviation still present Electronically Signed On 03-29-22 08:02:17 SPEECH PATHOLOGY SUPERVISOR by Soren Carter
--- NOTE | 2022-03-29 08:25 | ECHO ---
HEIGHT: 5 ft 3 in WEIGHT: 100 lb 0 oz DATE OF STUDY: 03/28/[address]: Torres Arvizu MD 2-DIMENSIONAL: YES M.MODE: YES DOPPLER: YES COLOR FLOW: YES TDS: PORTABLE: YES DEFINITY: BUBBLE STUDY: DIAGNOSIS: CHEST PAIN CARDIAC HISTORY: CATHERIZATION: SURGERY: YES PROSTHETIC VALVE: AVR PACEMAKER: MEASUREMENTS (cm) DIASTOLIC (NORMALS) SYSTOLIC (NORMALS) IVSd 1.0 (0.6-1.2) LA Diam 3.4 (1.9-4.0) LVEF 85% LVIDd 4.0 (3.5-5.7) LVIDs 1.8 (2.0-3.5) %FS 54% LVPWd 0.9 (0.6-1.2) Ao Diam 2.1 (2.0-3.7) 2 DIMENSIONAL ASSESSMENT: RIGHT ATRIUM: NORMAL LEFT ATRIUM: NORMAL RIGHT VENTRICLE: NORMAL LEFT VENTRICLE: NORMAL TRICUSPID VALVE: NORMAL MITRAL VALVE: NORMAL PULMONIC VALVE: NORMAL AORTIC VALVE: NORMAL PERICARDIAL EFFUSION: NONE AORTIC ROOT: NORMAL LEFT VENTRICULAR WALL MOTION: NORMAL DOPPLER/COLOR FLOW: MILD MITRAL REGURGITATION, TRICUSPID REGURGITATION COMMENTS: 1. NORMAL LEFT VENTRICULAR SIZE AND FUNCTION 2. MILD MITRAL REGURGITATION, TRICUSPID REGURGITATION 3. EJECTION FRACTION 85% TECHNOLOGIST: COREEN ZAMOAR
== END 2022-03-28 18:53 | disposition home or self-care (01) | DRG 313 ==
LOC: ER 19:46 → ERHOLD 03-26 02:11 → 2ND 03-26 16:53 → OBSVTOIN 03-27 15:00
PROVIDERS: ADMIT Internal Medicine Nephrology; ATTEND Internal Medicine
DX: R07.9 Chest pain, unspecified (principal); I48.20 Chronic atrial fibrillation, unspecified; I50.32 Chronic diastolic (congestive) heart failure; Z68.1 Body mass index [BMI] 19.9 or less, adult; I11.0 Hypertensive heart disease with heart failure; D64.9 Anemia, unspecified; K30 Functional dyspepsia; K21.9 Gastro-esophageal reflux disease without esophagitis; R79.1 Abnormal coagulation profile; Z20.822 Contact with and (suspected) exposure to COVID-19; Z79.01 Long term (current) use of anticoagulants; R63.6 Underweight
CPT/HCPCS: 0240U; 36415; 71045; 71275; 74175; 78452; 80048; 80076; 81003; 81015; 82550; 82553; 83690; 83735; 83880; 84100; 84484; 85025; 85027; 85610; 85730; 93005; 93017; 93306; 96374; 96375; 99285; A9500; G0378; J1170; J2785; J3010; Q9967

== ENCOUNTER 2022-05-13 17:30 | Emergency (ER) | payer OTHER ==
--- OUTSIDE RECORDS SUMMARY | 2022-05-13 17:40 | XMS REPORT | Continuity of Care Document ---
:1955 Author Organization [facility] Address [address] [place] [address] Care Team Providers Name Role Phone Saurabh Dobson Primary Care Physician REBECA HODGE Attending Clinician Unavailable REBECA HODGE Attending Clinician Unavailable Saurabh Dobson Attending Clinician Unavailable WAYNE RABAGO Attending Clinician Unavailable JAMAICA POMPA Attending Clinician Unavailable Wayne Rabago MD Attending Clinician Pob, [facility] Main Attending Clinician Unavailable Jamaica Pompa MD Attending Clinician Doctor Unassigned, [place] Attending Clinician Unavailable 1, [facility] Attending Clinician Unavailable Yolande Love MD Attending [...] Number Effective Date Expiration Date S alfonso [facility] DUAL [id number] 2020 00:00:00 COMP HMO D SNP [facility] [id number] 2013 00:00:00 PLUS Problems Condition Condition Condition Status Onset Resolution Last Treating Co mments Source Name Details Category Date Date Treatment Clinician Date Atrial Atrial Disease Active [facility] fibrillati fibrillati 8-11 it y of on on 00:00: [place] [address] Medical Branch E44.0 E44.0 Disease Active 2020-04 Univers Moderate Moderate 1-19 ity of protein protein 00:00: [place] calorie calorie 00 Medical malnutriti malnutriti Br anch on on Other Other Disease Active 2020-04 Univers chest pain chest pain 1-19 it y of 00:00: [place] [address] Medical Branch Chest pain Chest pain Disease Active 2020-04 U nivers 1-17 ity of 00:00: [place] [address] Medical Branch Elevated Elevated Disease Active 2020-04 Unive rs brain brain 0-24 ity of natriureti natriureti 00:00: [place] c peptide c peptide 00 Medi tyrone (BNP) (BNP) Branch level level Lab test Lab test Disease Active 2020-04 Unive rs positive positive 0-24 ity of for for 00:00: [place] detection detection 00 Medi tyrone of of [...] disease 00:00: [place] involving involving 00 Medi tyrnoe quinault quinault Branch coronary coronary artery of artery of quinault quinault 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 2-20 ity of disease disease 00:00: [place] involving involving 00 Medi tyrone quina[place] quinault Branch heart heart without without angina angina pectoris, pectoris, unspecifie unspecifie d vessel d vessel or lesion or lesion type type Atrial Atrial Disease Active Univers flutter flutter 4-03 ity of 00:00: [place] 00 Medical Branch Aortic Aortic Disease Active 2015-04 Univers valve valve 0-28 ity of replaced replaced 00:00: [place] [Z95.2] [Z95.2] 00 Medical Branch Chest pain Chest pain Disease Active 2015-04 U nivers with high with high 0-22 ity of risk for risk for 00:00: [place] cardiac cardiac 00 Medical etiology etiology Branch Allergies, Adverse Reactions, Alerts Allergy Allergy Status Severity Reaction(s) Onset Inactive Treating Comm ents Source Name Type Date Date Clinician Morphine Propensi Active Shortness of Univers ty to Breath 1-15 ity of adverse 00:00: [place] reaction 00 Medical s to Branch drug MORPHINE DRUG Active High SOB 2006- Univers INGREDI 1-15 ity of 00:00: [place] 00 Medical Branch Social History Social Habit Start Date Stop Date Quantity Comments Source Exposure to 2022-04-30 2022-05-10 Not sure University of SARS-CoV-2 00:00:00 11:03:00 [place] [facility] (event) Branch Alcohol intake 2022-05-10 2022-05-10 Current drinker Unive rsity of 00:00:00 00:00:00 of alcohol [facility] (finding) Branch Tobacco use and 2017-06-04 2017-06-04 Smokeless tobacco Un iversity of exposure 00:00:00 00:00:00 non-user [facility] Sex Ass[birth year] At [birth year] Universit y of 00:00:00 00:00:00 [facility] Smoking Status Start Date Stop Date Source Never smoked tobacco [facility] Medications Ordered Filled Start Stop Current Ordering Indication Dosage Frequency Signature Comments Components Source Medication Medication Date Date Medication? Clinician (SIG) Name Name metoprolol 2022- Yes [id number] 25mg Take 1 Univers succinate -08 08-27 tablet by ity of XL (TOPROL 00:00: 04:59 mouth in [place] XL) 25 mg 00 :00 the Medical 24 hr morning Branch tablet for 90 days. metoprolol 2022- Yes [id number] 25mg Take 1 Univers succinate -08 08-27 tablet by ity of XL (TOPROL 00:00: 04:59 mouth [place] XL) 25 mg 00 :00 the Medical 24 hr morning Branch tablet for 90 days. ezetimibe 2021-04 Yes 10mg Take 1 Univer s (ZETIA) 10 2-19 tablet by ity of mg tablet 00:00[place] the Medical morning. Branch metoprolol 2021-04 Yes [id number] 25mg Take 1 U nivers tartrate 25 2-19 tablet by [place]y of mg tablet 00:00: [place] the Medical morning Branch and 1 tablet in the evening. ezetimibe 2021-04 Yes 10mg Take 1 Univer s (ZETIA) 10 2-19 tablet by ity of mg tablet 00:00: [place] the Medical morning. Branch metoprolol 2021-04 Yes [id number] 25mg Take 1 U nivers tartrate 25 2-19 tablet by ity of mg tablet 00:00: [place] the Medical morning Branch and 1 tablet in the evening. ezetimibe 2021-04 Yes 10mg Take 1 Univer s (ZETIA) 10 2-19 tablet by [place] of mg tablet 00:00: [place] the Medical morning. Branch metoprolol 2021-04 Yes [id number] 25mg Take 1 U nivers tartrate 25 2-19 tablet by [place]y of mg tablet 00:00: [place] 00 the Medical morning Branch and 1 tablet in the evening. ezetimibe 2021-04 Yes 10mg Take 1 Univer s (ZETIA) 10 2-19 tablet by ity of mg tablet 00:00: [place] 00 the Medical morning. Branch metoprolol 2021-04 Yes [id number] 25mg Take 1 U nivers tartrate 25 2-19 tablet by ity of mg tablet 00:00: [place] 00 the Medical morning Branch and 1 tablet in the evening. ezetimibe 2021-04 Yes 10mg Take 1 Univer s (ZETIA) 10 2-19 tablet by ity of mg tablet 00:00: [place] 00 the Medical morning. Branch metoprolol 2021-04 Yes [id number] 25mg Take 1 U nivers tartrate 25 2-19 tablet by ity of mg tablet 00:00: [place] 00 the Medical morning Branch and 1 tablet in the evening. ezetimibe 2021-04 Yes 10mg Take 1 Univer s (ZETIA) 10 2-19 tablet by ity of mg tablet 00:00: [place] 00 the Medical morning. Branch metoprolol 2021-04 Yes [id number] 25mg Take 1 U nivers tartrate 25 2-19 tablet by ity of mg tablet 00:00: [place] 00 the Medical morning Branch and 1 tablet in the evening. ezetimibe 2021-04 Yes 10mg Take 1 Univer s (ZETIA) 10 2-19 tablet by ity of mg tablet 00:00: [place] 00 the Medical morning. Branch metoprolol 2021-04 Yes [id number] 25mg Take 1 U nivers tartrate 25 2-19 tablet by ity of mg tablet 00:00: [place] 00 the Medical morning Branch and 1 tablet in the evening. ezetimibe 2021- Yes 10mg Take 1 Univer s (ZETIA) 10 2-19 tablet by ity of mg tablet 00:00: [place] 00 the Medical morning. Branch ezetimibe 2021-04 Yes 10mg Take 1 Univer s (ZETIA) 10 2-19 tablet by ity of mg tablet 00:00: [place] 00 the Medical morning. Branch metoprolol 2021-04- No [id number] 25mg Take 1 [facility] tartrate 25 2-03 05- tablet by it y of mg tablet 00:00: 00:00 mouth [place] 00 :00 the Medical morning Branch and 1 tablet in the evening. metoprolol 2021-04- No [id number] 25mg Take 1 Univers tartrate 25 -03 05- tablet by it y of mg tablet 00:00: 00:00 mouth in [place] 00 :00 the Medical morning Branch and 1 tablet in the evening. warfarin 2021-04 Yes [id number] 1mg Take 1 Univers mg tablet 2-01 tablet by ity o f 00:00: mouth [place] 00 every Medical evening. Branch Alternate take 1mg x3 days, then 2mg x 4 days warfarin 2021-04 Yes [id number] 1mg Take 1 Univers mg tablet 2-01 tablet by ity o f 00:00: mouth [place] 00 every Medical evening. Branch Alternate take 1mg x3 days, then 2mg x 4 days dofetilide 2021-04 Yes [id number] 125ug Take 1 Univers 125 mcg 2-01 capsule by ity of capsule 00:00: mouth [place] 00 every 12 Medical (twelve) Branch hours. warfarin 2021-04 Yes [id number] 1mg Take 1 Univers mg tablet 2-01 tablet by ity o f 00:00: mouth [place] 00 every Medical evening. Branch Alternate take 1mg x3 days, then 2mg x 4 days dofetilide 2021-04 Yes [id number] 125ug Take 1 Univers 125 mcg 2-01 capsule by ity of capsule 00:00: mouth [place] 00 every 12 Medical (twelve) Branch hours. warfarin 2021-04 Yes [id number] 1mg Take 1 Univers mg tablet 2-01 tablet by ity o f 00:00: mouth [place] 00 every Medical evening. Branch Alternate take 1mg x3 days, then 2mg x 4 days dofetilide 2021-04 Yes [id number] 125ug Take 1 Univers 125 mcg 2-01 capsule by ity of capsule 00:00: mouth [place] 00 every 12 Medical (twelve) Branch hours. warfarin 2021-04 Yes [id number] 1mg Take 1 Univers mg tablet 2-01 tablet by ity o f 00:00: mouth [place] 00 every Medical evening. Branch Alternate take 1mg x3 days, then 2mg x 4 days dofetilide 2021-04 Yes [id number] 125ug Take 1 Univers 125 mcg 2-01 capsule by ity of capsule 00:00: mouth [place] 00 every 12 Medical (twelve) Branch hours. warfarin 2021-04 Yes [id number] 1mg Take 1 Univers mg tablet 2-01 tablet by ity o f 00:00: mouth [place] 00 every Medical evening. Branch Alternate take 1mg x3 days, then 2mg x 4 days dofetilide 2021-04 Yes [id number] 125ug Take 1 Univers 125 mcg 2-01 capsule by ity of capsule 00:00: mouth [place] 00 every 12 Medical (twelve) Branch hours. warfarin 2021-04 Yes [id number] 1mg Take 1 Univers mg tablet 2-01 tablet by ity o f 00:00: mouth [place] 00 every Medical evening. Branch Alternate take 1mg x3 days, then 2mg x 4 days dofetilide 2021-04 Yes [id number] 125ug Take 1 Univers 125 mcg 2-01 capsule by ity of capsule 00:00: mouth [place] 00 every 12 Medical (twelve) Branch hours. warfarin 2021-04 Yes [id number] 1mg Take 1 Univers mg tablet 2-01 tablet by ity o f 00:00: mouth [place] 00 every Medical evening. Branch Alternate take 1mg x3 days, then 2mg x 4 days dofetilide 2021-04 Yes [id number] 125ug Take 1 Univers 125 mcg 2-01 capsule by ity of capsule 00:00: mouth [place] 00 every 12 Medical (twelve) Branch hours. warfarin 2021-04 Yes [id number] 1mg Take 1 Univers mg tablet 2-01 tablet by ity o f 00:00: mouth [place] 00 every Medical evening. Branch Alternate take 1mg x3 days, then 2mg x 4 days dofetilide 2021-04 Yes [id number] 125ug Take 1 Univers 125 mcg 2-01 capsule by ity of capsule 00:00: mouth [place] 00 every 12 Medical (twelve) Branch hours. warfarin 2021-04 Yes [id number] 1mg Take 1 Univers mg tablet 2-01 tablet by ity o f 00:00: mouth [place] 00 every Medical evening. Branch Alternate take 1mg x3 days, then 2mg x 4 days dofetilide 2021-04 Yes [id number] 125ug Take 1 Univers 125 mcg 2-01 capsule by ity of capsule 00:00: mouth [place] 00 every 12 Medical (twelve) Branch hours. warfarin 2021-04 Yes [id number] 1mg Take 1 Univers mg tablet 2-01 tablet by ity o f 00:00: mouth [place] 00 every Medical evening. Branch Alternate take 1mg x3 days, then 2mg x 4 days dofetilide 2021-04 Yes [id number] 125ug Take 1 Univers 125 mcg 2-01 capsule by ity of capsule 00:00: mouth [place] 00 every 12 Medical (twelve) Branch hours. warfarin 2021-04 Yes [id number] 1mg Take 1 Univers mg tablet 2-01 tablet by ity o f 00:00: mouth [place] 00 every Medical evening. Branch Alternate take 1mg x3 days, then 2mg x 4 days dofetilide 2021-04 Yes [id number] 125ug Take 1 Univers 125 mcg 2-01 capsule by ity of capsule 00:00: mouth [place] 00 every 12 Medical (twelve) Branch hours. warfarin 2021-04 Yes [id number] 1mg Take 1 Univers mg tablet 1-01 tablet by ity o f 00:00: mouth [place] 00 every Medical evening. Branch Alternate take 1mg x4 days, then 2mg x 3 days warfarin 2021-04 Yes [id number] 1mg Take 1 Univers mg tablet 1-01 tablet by ity o f 00:00: mouth [place] 00 every Medical evening. Branch Alternate take 1mg x4 days, then 2mg x 3 days warfarin 2021-04 Yes [id number] 1mg Take 1 Univers mg tablet 1-01 tablet by ity o f 00:00: mouth [place] 00 every Medical evening. Branch Alternate take 1mg x4 days, then 2mg x 3 days warfarin 2021-04 Yes [id number] 1mg Take 1 Univers mg tablet 1-01 tablet by ity o f 00:00: mouth [place] 00 every Medical evening. Branch Alternate take 1mg x4 days, then 2mg x 3 days warfarin 2021-04 Yes [id number] 1mg Take 1 Univers mg tablet 1-01 tablet by ity o f 00:00: mouth [place] 00 every Medical evening. Branch Alternate take 1mg x4 days, then 2mg x 3 days warfarin 2021-04 Yes [id number] 1mg Take 1 Univers mg tablet 1-01 tablet by ity o f 00:00: mouth [place] 00 every Medical evening. Branch Alternate take 1mg x4 days, then 2mg x 3 days warfarin 2021-04 Yes [id number] 1mg Take 1 Univers mg tablet 1-01 tablet by ity o f 00:00: mouth [place] 00 every Medical evening. Branch Alternate take 1mg x4 days, then 2mg x 3 days warfarin 2021-04 Yes [id number] 1mg Take 1 Univers mg tablet 1- tablet by ity o f 00:00: mouth [place] 00 every Medical evening. Branch Alternate take 1mg x4 days, then 2mg x 3 days warfarin 2021-04 Yes [id number] 1mg Take 1 Univers mg tablet 1-01 tablet by ity o f 00:00: mouth [place] 00 every Medical evening. Branch Alternate take 1mg x4 days, then 2mg x 3 days warfarin 2021-04 Yes [id number] 1mg Take 1 Univers mg tablet 1-01 tablet by ity o f 00:00: mouth [place] 00 every Medical evening. Branch Alternate take 1mg x4 days, then 2mg x 3 days warfarin 2021-04 Yes [id number] 1mg Take 1 Univers mg tablet 1-01 tablet by ity o f 00:00: mouth [place] 00 every Medical evening. Branch Alternate take 1mg x4 days, then 2mg x 3 days warfarin 2021-04- No [id number] 1mg Take 1 Univers mg tablet 1- 12- tablet by ity of 00:00: 00:00 mouth [place] 00 :00 every Medical evening. Branch Alternate take 1mg x4 days, then 2mg x 3 days warfarin 2021-04 Yes [id number] 1mg Take 1 Univers mg tablet 0-17 tablet by ity o f 00:00: mouth [place] 00 every Medical evening. Branch Alternate take 1mg x4 days, then 2mg x 3 days warfarin 1 2021-04- No [id number] 1mg Take 1 Univers mg tablet 0-17 [...] 10mg Take 1 Univer s (ZETIA) 10 9- tablet by ity of mg tablet 00:00: [place] 00 the Medical morning. Branch ezetimibe 0 2021- No 10mg Take 1 Unive rs (ZETIA) 10 9- 12-19 tablet by ity of mg tablet 00:00: 00:00 mouth in [place] 00 :00 the Medical morning. Branch warfarin 1 Yes [id number] 1mg Take 1 Univers mg tablet 8-24 tablet by ity o f 00:00: mouth [place] 00 every Medical evening. Branch Alternate take 1mg x2days, then 2mg x 1 day warfarin Yes [id number] 1mg Take 1 Univers mg tablet 8-24 tablet by ity o f 00:00: mouth [place] 00 every Medical evening. Branch Alternate take 1mg x2days, then 2mg x 1 day warfarin 1 Yes [id number] 1mg Take 1 Univers mg tablet 8-24 tablet by ity o f 00:00: mouth [place] 00 every Medical evening. Branch Alternate take 1mg x2days, then 2mg x 1 day warfarin 1 Yes [id number] 1mg Take 1 Univers mg tablet 8-24 tablet by ity o f 00:00: mouth [place] 00 every Medical evening. Branch Alternate take 1mg x2days, then 2mg x 1 day warfarin Yes [id number] 1mg Take 1 Univers mg tablet 8-24 tablet by ity o f 00:00: mouth [place] 00 every Medical evening. Branch Alternate take 1mg x2days, then 2mg x 1 day warfarin 1 Yes [id number] 1mg Take 1 Univers mg tablet 8-24 tablet by ity o f 00:00: mouth [place] 00 every Medical evening. Branch Alternate take 1mg x2days, then 2mg x 1 day warfarin 1 Yes [id number] 1mg Take 1 Univers mg tablet 8-24 tablet by ity o f 00:00: mouth [place] 00 every Medical evening. Branch Alternate take 1mg x2days, then 2mg x 1 day warfarin 1 Yes [id number] 1mg Take 1 Univers mg tablet 8-24 tablet by ity o f 00:00: mouth [place] 00 every Medical evening. Branch Alternate take 1mg x2days, then 2mg x 1 day warfarin Yes [id number] 1mg Take 1 Univers mg tablet 8-24 tablet by ity o f 00:00: mouth [place] 00 every Medical evening. Branch Alternate take 1mg x2days, then 2mg x 1 day warfarin 1 Yes [id number] 1mg Take 1 Univers mg tablet 8-24 tablet by ity o f 00:00: mouth [place] 00 every Medical evening. Branch Alternate take 1mg x2days, then 2mg x 1 day warfarin Yes [id number] 1mg Take 1 Univers mg tablet 8-24 tablet by ity o f 00:00: mouth [place] 00 every Medical evening. Branch Alternate take 1mg x2days, then 2mg x 1 day warfarin 1 Yes [id number] 1mg Take 1 Univers mg tablet 8-24 tablet by ity o f 00:00: mouth [place] 00 every Medical evening. Branch Alternate take 1mg x2days, then 2mg x 1 day warfarin 1 Yes [id number] 1mg Take 1 Univers mg tablet 8-24 tablet by ity o f 00:00: mouth [place] 00 every Medical evening. Branch Alternate take 1mg x2days, then 2mg x 1 day warfarin 1 2021- No [id number] 1mg Take 1 Univers mg tablet 8-24 10-17 tablet by ity of 00:00: 00:00 mouth [place] 00 :00 every Medical evening. Branch Alternate take 1mg x2days, then 2mg x 1 day warfarin 1 2021- No [id number] 2mg Take 2 Univers mg tablet 8-23 08-24 tablets by ity of 00:00: 00:00 mouth [place] 00 :00 every Medical evening. [place] dofetilide 2021- No [id number] 125ug Take 1 Univers 125 mcg 8-19 08-27 capsule by ity o f capsule 00:00: 04:59 mouth [place] 00 :00 every 12 Medical (twelve) Branch hours for 7 days. dofetilide 2021- No [id number] 125ug Take 1 Univers 125 mcg 8-19 08-27 capsule by ity o f capsule 00:00: 04:59 mouth [place] 00 :00 every 12 Medical (twelve) Branch hours for 7 days. dofetilide 2021- No [id number] 125ug Take 1 Univers 125 mcg 8-17 11-16 capsule by ity o f capsule 00:00: 05:59 mouth [place] 00 :00 every 12 Medical (twelve) Branch hours for 90 days. dofetilide 2021- No [id number] 125ug Take 1 Univers 125 mcg 8-17 11-16 capsule by ity o f capsule 00:00: 05:59 mouth [place] 00 :00 every 12 Medical (twelve) Branch hours for 90 days. dofetilide 2021- No [id number] 125ug Take 1 Univers 125 mcg 8-17 11-16 capsule by ity o f capsule 00:00: 05:59 mouth [place] 00 :00 every 12 Medical (twelve) Branch hours for 90 days. dofetilide 2021- No [id number] 125ug Take 1 Univers 125 mcg 8-17 11-16 capsule by ity o f capsule 00:00: 05:59 mouth [place] 00 :00 every 12 Medical (twelve) Branch hours for 90 days. dofetilide 2021- No [id number] 125ug Take 1 Univers 125 mcg 8-17 11-16 capsule by ity o f capsule 00:00: 05:59 mouth [place] 00 :00 every 12 Medical (twelve) Branch hours for 90 days. dofetilide 2021- No [id number] 125ug Take 1 Univers 125 mcg 8-17 11-16 capsule by ity o f capsule 00:00: 05:59 mouth [place] 00 :00 every 12 Medical (twelve) Branch hours for 90 days. dofetilide 2021- No [id number] 125ug Take 1 Univers 125 mcg 8-17 11-16 capsule by ity o f capsule 00:00: 05:59 mouth [place] 00 :00 every 12 Medical (twelve) Branch hours for 90 days. dofetilide 2021- No [id number] 125ug Take 1 Univers 125 mcg 8-17 11-16 capsule by ity o f capsule 00:00: 05:59 mouth [place] 00 :00 every 12 Medical (twelve) Branch hours for 90 days. dofetilide 2- No [id number] 125ug Take 1 Univers 125 mcg 8-17 11-16 capsule by ity o f capsule 00:00: 05:59 mouth [place] 00 :00 every 12 Medical (twelve) Branch hours for 90 days. dofetilide 2021- No [id number] 125ug Take 1 Univers 125 mcg 8-17 11-16 capsule by ity o f capsule 00:00: 05:59 mouth [place] 00 :00 every 12 Medical (twelve) Branch hours for 90 days. dofetilide 2021- No [id number] 125ug Take 1 Univers 125 mcg 8-17 11-16 capsule by ity o f capsule 00:00: 05:59 mouth [place] 00 :00 every 12 Medical (twelve) Branch hours for 90 days. dofetilide 2021- No [id number] 125ug Take 1 Univers 125 mcg 8-17 11-16 capsule by ity o f capsule 00:00: 05:59 mouth [place] 00 :00 every 12 Medical (twelve) Branch hours for 90 days. dofetilide 2021- No [id number] 125ug Take 1 Univers 125 mcg 8-17 11-16 capsule by ity o f capsule 00:00: 05:59 mouth [place] 00 :00 every 12 Medical (twelve) Branch hours for 90 days. dofetilide 2021- No [id number] 125ug Take 1 Univers 125 mcg 8-17 11-16 capsule by ity o f capsule 00:00: 05:59 mouth [place] 00 :00 every 12 Medical (twelve) Branch hours for 90 days. dofetilide 2021- No [id number] 125ug Take 1 Univers 125 mcg 8-17 11-16 capsule by ity o f capsule 00:00: 05:59 mouth [place] 00 :00 every 12 Medical (twelve) Branch hours for 90 days. dofetilide 2- No [id number] 125ug Take 1 Univers 125 mcg 8-17 11-16 capsule by ity o f capsule 00:00: 05:59 mouth [place] 00 :00 every 12 Medical (twelve) Branch hours for 90 days. dofetilide 2021- No [id number] 125ug Take 1 Univers 125 mcg 8-17 11-16 capsule by ity o f capsule 00:00: 05:59 mouth [place] 00 :00 every 12 Medical (twelve) Branch hours for 90 days. dofetilide 2021- No [id number] 125ug Take 1 Univers 125 mcg 8-17 11-16 capsule by ity o f capsule 00:00: 05:59 mouth [place] 00 :00 every 12 Medical (twelve) Branch hours for 90 days. dofetilide 2021- No [id number] 125ug Take 1 Univers 125 mcg 8-17 11-16 capsule by ity o f capsule 00:00: 05:59 mouth [place] 00 :00 every 12 Medical (twelve) Branch hours for 90 days. dofetilide 2021- No [id number] 125ug Take 1 Univers 125 mcg 8-17 11-16 capsule by ity o f capsule 00:00: 05:59 mouth [place] 00 :00 every 12 Medical (twelve) Branch hours for 90 days. atorvastati Yes 80mg Take 1 Univ ers n 80 mg 7-12 tablet by ity of tablet 00:00: mouth at [place] [address] bedtime. Medical Branch atorvastati Yes 80mg Take 1 Univ ers n 80 mg 7-12 tablet by ity of tablet 00:00: mouth at [place] [address] bedtime. Medical Branch atorvastati 0 Yes 80mg Take 1 Univ ers n 80 mg 7-12 tablet by ity of tablet 00:00: mouth at [place] [address] bedtime. Medical Branch atorvastati 0 Yes 80mg Take 1 Univ ers n 80 mg 7-12 tablet by ity of tablet 00:00: mouth at [place] [address] bedtime. Medical Branch atorvastati 0 Yes 80mg Take 1 Univ ers n 80 mg 7-12 tablet by ity of tablet 00:00: mouth at [place] [address] bedtime. Medical Branch atorvastati 0 Yes 80mg Take 1 Univ ers n 80 mg 7-12 tablet by ity of tablet 00:00: mouth at [place] [address] bedtime. Medical Branch atorvastati 2-0 Yes 80mg Take 1 Univ ers n 80 mg 7-12 tablet by ity of tablet 00:00: mouth at [place] [address] bedtime. Medical Branch atorvastati 2-0 Yes 80mg Take 1 Univ ers n 80 mg 7-12 tablet by ity of tablet 00:00: mouth at [place] bedtime. Medical Branch atorvastati 2-0 Yes 80mg Take 1 Univ ers n 80 mg 7-12 tablet by ity of tablet 00:00: mouth at [place] bedtime. Medical Branch atorvastati 2-0 Yes 80mg Take 1 Univ ers n 80 mg 7-12 tablet by ity of tablet 00:00: mouth at [place] bedtime. Medical Branch atorvastati 2-0 Yes 80mg Take 1 Univ ers n 80 mg 7-12 tablet by ity of tablet 00:00: mouth at [place] [address] bedtime. Medical Branch atorvastati 2-0 Yes 80mg Take 1 Univ ers n 80 mg 7-12 tablet by ity of tablet 00:00: mouth at [place] [address] bedtime. Medical Branch atorvastati 2-0 Yes 80mg Take 1 Univ ers n 80 mg 7-12 tablet by ity of tablet 00:00: mouth at [place] [address] bedtime. Medical Branch atorvastati 2-0 Yes 80mg Take 1 Univ ers n 80 mg 7-12 tablet by ity of tablet 00:00: mouth at [place] [address] bedtime. Medical Branch atorvastati 2-0 Yes 80mg Take 1 Univ ers n 80 mg 7-12 tablet by ity of tablet 00:00: mouth at [place] [address] bedtime. Medical Branch atorvastati 2-0 Yes 80mg Take 1 Univ ers n 80 mg 7-12 tablet by ity of tablet 00:00: mouth at [place] [address] bedtime. Medical Branch atorvastati 2-0 Yes 80mg Take 1 Univ ers n 80 mg 7-12 tablet by ity of tablet 00:00: mouth at [place] [address] bedtime. Medical Branch atorvastati 2022-0 Yes 80mg Take 1 Univ ers n 80 mg 7-12 tablet by ity of tablet 00:00: mouth at [place] [address] bedtime. Medical Branch atorvastati 2022-0 Yes 80mg Take 1 Univ ers n 80 mg 7-12 tablet by ity of tablet 00:00: mouth at [place] [address] bedtime. Medical Branch atorvastati 2-0 Yes 80mg Take 1 Univ ers n 80 mg 7-12 tablet by ity of tablet 00:00: mouth at [place] [address] bedtime. Medical Branch atorvastati 2-0 Yes 80mg Take 1 Univ ers n 80 mg 7-12 tablet by ity of tablet 00:00: mouth at [place] [address] bedtime. Medical Branch atorvastati 2-0 Yes 80mg Take 1 Univ ers n 80 mg 7-12 tablet by ity of tablet 00:00: mouth at [place] [address] bedtime. Medical Branch atorvastati 2-0 Yes 80mg Take 1 Univ ers n 80 mg 7-12 tablet by ity of tablet 00:00: mouth at [place] [address] bedtime. Medical Branch atorvastati 2-0 Yes 80mg Take 1 Univ ers n 80 mg 7-12 tablet by ity of tablet 00:00: mouth at [place] [address] bedtime. Medical Branch atorvastati 2-0 Yes 80mg Take 1 Univ ers n 80 mg 7-12 tablet by ity of tablet 00:00: mouth at [place] [address] bedtime. Medical Branch atorvastati 2-0 Yes 80mg Take 1 Univ ers n 80 mg 7-12 tablet by ity of tablet 00:00: mouth at [place] [address] bedtime. Medical Branch atorvastati 2-0 Yes 80mg Take 1 [facility] n 80 mg 7-12 tablet by [facility] of tablet 00:00: mouth at [place] [address] bedtime. Medical Branch atorvastati 2-0 Yes 80mg Take 1 [facility] n 80 mg 7-12 tablet by [facility] of tablet 00:00: mouth at [place] [address] bedtime. Medical Branch atorvastati 2022-0 Yes 80mg Take 1 [facility] n 80 mg 7-12 tablet by [facility] of tablet 00:00: mouth at [place] [address] bedtime. [facility] atorvastati 2022-0 Yes 80mg Take 1 [facility] n 80 mg 7-12 tablet by [facility] of tablet 00:00: mouth at [place] [address] bedtime. [facility] atorvastati 2022-0 Yes 80mg Take 1 [facility] n 80 mg 7-12 tablet by [facility] of tablet 00:00: mouth at [place] bedtime. Medical [facility] atorvastati 2022-0 Yes 80mg Take 1 [facility] n 80 mg 7-12 tablet by [facility] of tablet 00:00: mouth at [place] bedtime. [facility] atorvastati 2022-0 Yes 80mg Take 1 [facility] n 80 mg 7-12 tablet by [facility] of tablet 00:00: mouth at [place] bedtime. Medical [facility] atorvastati 2022-0 Yes 80mg Take 1 [facility] n 80 mg 7-12 tablet by [facility] of tablet 00:00: mouth at [place] bedtime. [facility] atorvastati 2-0 Yes 80mg Take 1 [facility] n 80 mg 7-12 tablet by [facility] of tablet 00:00: mouth at [place] bedtime. [facility] atorvastati 2-0 Yes 80mg Take 1 [facility] n 80 mg 7-12 tablet by [facility] of tablet 00:00: mouth at [place] bedtime. [facility] atorvastati 2-0 Yes 80mg Take 1 [facility] n 80 mg 7-12 tablet by [facility] of tablet 00:00: mouth at [place] bedtime. Medical [facility] atorvastati 2-0 Yes 80mg Take 1 [facility] n 80 mg 7-12 tablet by [facility] of tablet 00:00: mouth at [place] bedtime. Medical [facility] ezetimibe 2-0 Yes 10mg Take 1 [facility] (ZETIA) 10 5-20 tablet by [facility] mg tablet 00:00: mouth daily. [facility] ezetimibe 2022-0 Yes 10mg Take 1 [facility] (ZETIA) 10 5-20 tablet by [facility] mg tablet 00:00: mouth daily. Medical [facility] ezetimibe 2022-0 Yes 10mg Take 1 [facility] (ZETIA) 10 5-20 tablet by [facility] mg tablet 00:00: mouth daily. [facility] ezetimibe 2022-0 Yes 10mg Take 1 [facility] (ZETIA) 10 5-20 tablet by [facility] mg tablet 00:00: mouth daily. [facility] ezetimibe 2022-0 Yes 10mg Take 1 [facility] (ZETIA) 10 5-20 tablet by [facility] mg tablet 00:00: mouth daily. [facility] ezetimibe 2021-0 Yes 10mg Take 1 [facility] (ZETIA) 10 5-20 tablet by [facility] mg tablet 00:00: mouth [place] 00 daily. [facility] ezetimibe 0 2021- No 10mg Take 1 [facility] (ZETIA) 10 5-20 09-02 tablet by [facility] mg tablet 00:00: 00:00 mouth [place] 00 :00 daily. [facility] furosemide 2021-0 Yes [id number] 40mg Take 2 [facility] 20 mg 2-16 02 tablets by [facility] of tablet 00:00: mouth [place] 00 daily. [facility] furosemide 0 Yes [id number] 40mg Take 2 [facility] 20 mg 2-16 02 tablets by [facility] of tablet 00:00: mouth [place] 00 daily. [facility] furosemide 0 Yes [id number] 40mg Take 2 [facility] 20 mg 2-16 02 tablets by [facility] of tablet 00:00: mouth [place] 00 daily. [facility] furosemide 2021-0 Yes [id number] 40mg Take 2 [facility] 20 mg 2-16 02 tablets by [facility] of tablet 00:00: mouth [place] 00 daily. [facility] furosemide 0 Yes [id number] 40mg Take 2 [facility] 20 mg 2-16 02 tablets by [facility] of tablet 00:00: mouth [place] 00 daily. [facility] furosemide 2021-0 Yes [id number] 40mg Take 2 [facility] 20 mg 2-16 02 tablets by [facility] of tablet 00:00: mouth [place] 00 daily. [facility] furosemide 2021-0 Yes [id number] 40mg Take 2 [facility] 20 mg 2-16 02 tablets by [facility] of tablet 00:00: mouth [place] 00 daily. [facility] furosemide 0 Yes [id number] 40mg Take 2 [facility] 20 mg 2-16 02 tablets by [facility] of tablet 00:00: mouth [place] 00 daily. [facility] furosemide 2021-0 Yes [id number] 40mg Take 2 [facility] 20 mg 2-16 02 tablets by [facility] of tablet 00:00: mouth [place] 00 daily. [facility] furosemide 2021-0 Yes [id number] 40mg Take 2 [facility] 20 mg 2-16 02 tablets by [facility] of tablet 00:00: mouth [place] 00 daily. [facility] furosemide 2021-0 Yes [id number] 40mg Take 2 [facility] 20 mg 2-16 02 tablets by [facility] of tablet 00:00: mouth [place] 00 daily. [facility] furosemide 2021-0 Yes [id number] 40mg Take 2 [facility] 20 mg 2-16 02 tablets by [facility] of tablet 00:00: mouth [place] 00 daily. [facility] furosemide 2021-0 Yes [id number] 40mg Take 2 [facility] 20 mg 2-16 02 tablets by [facility] of tablet 00:00: mouth [place] 00 daily. [facility] furosemide 2021-0 Yes [id number] 40mg Take 2 [facility] 20 mg 2-16 02 tablets by [facility] of tablet 00:00: mouth [place] 00 daily. [facility] furosemide 2021-0 Yes [id number] 40mg Take 2 [facility] 20 mg 2-16 02 tablets by [facility] of tablet 00:00: mouth [place] 00 daily. [facility] furosemide 0 Yes [id number] 40mg Take 2 [facility] 20 mg 2-16 02 tablets by [facility] of tablet 00:00: mouth [place] 00 daily. [facility] furosemide 0 Yes [id number] 40mg Take 2 [facility] 20 mg 2-16 02 tablets by [facility] of tablet 00:00: mouth [place] 00 daily. [facility] furosemide 2021-0 Yes [id number] 40mg Take 2 [facility] 20 mg 2-16 02 tablets by [facility] of tablet 00:00: mouth [place] 00 daily. [facility] furosemide 2021-0 Yes [id number] 40mg Take 2 [facility] 20 mg 2-16 02 tablets by [facility] of tablet 00:00: mouth [place] 00 daily. [facility] furosemide 2021-0 Yes [id number] 40mg Take 2 [facility] 20 mg 2-16 02 tablets by [facility] of tablet 00:00: mouth [place] 00 daily. [facility] furosemide 2021-0 Yes [id number] 40mg Take 2 [facility] 20 mg 2-16 02 tablets by [facility] of tablet 00:00: mouth [place] 00 daily. [facility] furosemide 2021-0 Yes [id number] 40mg Take 2 [facility] 20 mg 2-16 02 tablets by [facility] of tablet 00:00: mouth [place] 00 daily. [facility] furosemide 2021-0 Yes [id number] 40mg Take 2 [facility] 20 mg 2-16 02 tablets by [facility] of tablet 00:00: mouth [place] 00 daily. [facility] furosemide 2021-0 Yes [id number] 40mg Take 2 [facility] 20 mg 2-16 02 tablets by [facility] of tablet 00:00: mouth [place] 00 daily. [facility] furosemide 2021-0 Yes [id number] 40mg Take 2 [facility] 20 mg 2-16 02 tablets by [facility] of tablet 00:00: mouth [place] 00 daily. [facility] furosemide 2021-0 Yes [id number] 40mg Take 2 [facility] 20 mg 2-16 02 tablets by [facility] of tablet 00:00: mouth [place] 00 daily. [facility] furosemide 2021-0 Yes [id number] 40mg Take 2 [facility] 20 mg 2-16 02 tablets by [facility] of tablet 00:00: mouth [place] 00 daily. [facility] furosemide 2021-0 Yes [id number] 40mg Take 2 [facility] 20 mg 2-16 02 tablets by [facility] of tablet 00:00: mouth [place] 00 daily. [facility] furosemide 2021-0 Yes [id number] 40mg Take 2 [facility] 20 mg 2-16 02 tablets by [facility] of tablet 00:00: mouth [place] 00 daily. [facility] furosemide 2021-0 Yes [id number] 40mg Take 2 [facility] 20 mg 2-16 02 tablets by [facility] of tablet 00:00: mouth [place] 00 daily. [facility] furosemide 2021-0 Yes [id number] 40mg Take 2 [facility] 20 mg 2-16 02 tablets by [facility] of tablet 00:00: mouth [place] 00 daily. [facility] furosemide 2021-0 Yes [id number] 40mg Take 2 [facility] 20 mg 2-16 02 tablets by [facility] of tablet 00:00: mouth [place] 00 daily. [facility] furosemide 2021-0 Yes [id number] 40mg Take 2 [facility] 20 mg 2-16 02 tablets by [facility] of tablet 00:00: mouth [place] 00 daily. [facility] furosemide 2021-0 Yes [id number] 40mg Take 2 [facility] 20 mg 2-16 02 tablets by [facility] of tablet 00:00: mouth [place] 00 daily. [facility] furosemide 2021-0 Yes [id number] 40mg Take 2 [facility] 20 mg 2-16 02 tablets by [facility] of tablet 00:00: mouth [place] 00 daily. [facility] furosemide 2021-0 Yes [id number] 40mg Take 2 [facility] 20 mg 2-16 02 tablets by [facility] of tablet 00:00: mouth [place] 00 daily. [facility] furosemide Yes [id number] 40mg Take 2 [facility] 20 mg 2-16 02 tablets by [facility] of tablet 00:00: mouth daily. [facility] Branch furosemide Yes [id number] 40mg Take 2 [facility] 20 mg 2-16 02 tablets by [facility] of tablet 00:00: mouth daily. Medical Branch metoprolol 2020-04 Yes [id number] 25mg Take 1 [facility] tartrate 25 2-15 tablet by [facility] of mg tablet 00:00: mouth (two) Medical times Branch daily. metoprolol 2020-04 Yes [id number] 25mg Take 1 [facility] tartrate 25 2-15 tablet by [facility] of mg tablet 00:00: mouth (two) Medical times Branch daily. metoprolol 2020-04 Yes [id number] 25mg Take 1 [facility] tartrate 25 2-15 tablet by [facility] of mg tablet 00:00: mouth (two) Medical times Branch daily. metoprolol 2020-04 Yes [id number] 25mg Take 1 [facility] tartrate 25 2-15 tablet by [facility] of mg tablet 00:00: mouth (two) Medical times Branch daily. metoprolol 2020-04 Yes [id number] 25mg Take 1 [facility] tartrate 25 2-15 tablet by [facility] of mg tablet 00:00: mouth (two) Medical times Branch daily. metoprolol 2020-04 Yes [id number] 25mg Take 1 [facility] tartrate 25 2-15 tablet by [facility] of mg tablet 00:00: mouth (two) Medical times Branch daily. metoprolol 2020-04 Yes [id number] 25mg Take 1 [facility] tartrate 25 2-15 tablet by [facility] of mg tablet 00:00: mouth (two) Medical times Branch daily. metoprolol 2020-04 Yes [id number] 25mg Take 1 [facility] tartrate 25 2-15 tablet by [facility] of mg tablet 00:00: mouth (two) Medical times Branch daily. metoprolol 2020-04 Yes [id number] 25mg Take 1 [facility] tartrate 25 2-15 tablet by [facility] of mg tablet 00:00: mouth (two) Medical times Branch daily. metoprolol 2020-04 Yes [id number] 25mg Take 1 [facility] tartrate 25 2-15 tablet by [facility] of mg tablet 00:00: mouth (two) Medical times Branch daily. metoprolol 2020-04 Yes [id number] 25mg Take 1 [facility] tartrate 25 2-15 tablet by [facility] of mg tablet 00:00: mouth (two) Medical times Branch daily. metoprolol 2020-04 Yes [id number] 25mg Take 1 [facility] tartrate 25 2-15 tablet by [facility] of mg tablet 00:00: mouth (two) Medical times Branch daily. metoprolol 2020-04 Yes [id number] 25mg Take 1 [facility] tartrate 25 2-15 tablet by [facility] of mg tablet 00:00: mouth (two) Medical times Branch daily. metoprolol 2020-04 Yes [id number] 25mg Take 1 [facility] tartrate 25 2-15 tablet by [facility] of mg tablet 00:00: mouth (two) Medical times Branch daily. metoprolol 2020-04 Yes [id number] 25mg Take 1 [facility] tartrate 25 2-15 tablet by [facility] of mg tablet 00:00: mouth (two) Medical times Branch daily. metoprolol 2020-04 Yes [id number] 25mg Take 1 [facility] tartrate 25 2-15 tablet by [facility] of mg tablet 00:00: mouth (two) Medical times Branch daily. metoprolol 2020-04 Yes [id number] 25mg Take 1 [facility] tartrate 25 2-15 tablet by [facility] of mg tablet 00:00: mouth (two) Medical times Branch daily. metoprolol 2020-04 Yes [id number] 25mg Take 1 [facility] tartrate 25 2-15 tablet by [facility] of mg tablet 00:00: mouth (two) Medical times Branch daily. metoprolol 2020-04 Yes [id number] 25mg Take 1 [facility] tartrate 25 2-15 tablet by [facility] of mg tablet 00:00: mouth (two) Medical times Branch daily. metoprolol 2020-04 Yes [id number] 25mg Take 1 [facility] tartrate 25 2-15 tablet by [facility] of mg tablet 00:00: mouth (two) Medical times Branch daily. metoprolol 2020-04 Yes [id number] 25mg Take 1 [facility] n[facility] tartrate 25 2-15 tablet by [facility] of mg tablet 00:00: mouth (two) Medical times Branch daily. metoprolol 2020-04 Yes [id number] 25mg Take 1 [facility] tartrate 25 2-15 tablet by [facility] of mg tablet 00:00: mouth (two) Medical times Branch daily. metoprolol 2020-04 Yes [id number] 25mg Take 1 [facility] tartrate 25 2-15 tablet by [facility]y of mg tablet 00:00: mouth (two) Medical times Branch daily. metoprolol 2020-04 Yes [id number] 25mg Take 1 [facility] tartrate 25 2-15 tablet by [facility]y of mg tablet 00:00: mouth (two) Medical times Branch daily. metoprolol 2020-04 Yes [id number] 25mg Take 1 [facility] tartrate 25 2-15 tablet by ity of mg tablet 00:00: mouth (two) Medical times Branch daily. metoprolol 2020-04 Yes [id number] 25mg Take 1 [facility] n[facility] tartrate 25 2-15 tablet by ity of mg tablet 00:00: [facility] [place] (two) Medical times Branch daily. metoprolol 2020-04 Yes [id number] 25mg Take 1 [facility] nivers tartrate 25 2-15 tablet by ity of mg tablet 00:00: mouth [place] (two) Medical times Branch daily. metoprolol 2020-04 Yes [id number] 25mg Take 1 [facility] nivers tartrate 25 2-15 tablet by ity of mg tablet 00:00: mouth (two) Medical times Branch daily. metoprolol 2020-04 Yes [id number] 25mg Take 1 [facility] n[facility] tartrate 25 2-15 tablet by ity of mg tablet 00:00: mouth [place] (two) Medical times Branch daily. metoprolol 2020-04- No [id number] 25mg Take 1 [facility] tartrate 25 2-15 12-19 tablet by it y of mg tablet 00:00: 00:[place] 2 [place] (two[place] Medical times Branch daily. polyethylen 2020-04 Yes [id number] 17g Take 1 [facility] e glycol 0-29 Packet by ity of 3350 17 00:00: mouth [place] gram powder 00 daily. Medica l Branch polyethylen 2020-04 Yes [id number] 17g Take 1 [facility] e glycol 0-29 Packet by ity of 3350 17 00:00: mouth [place] gram powder 00 daily. Medica l Branch polyethylen 2020-04 Yes [id number] 17g Take 1 [facility] e glycol 0-29 Packet by ity of 3350 17 00:00: mouth [place] gram powder 00 daily. Medica l Branch polyethylen 2020-04 Yes [id number] 17g Take 1 [facility] e glycol 0-29 Packet by ity of 3350 17 00:00: mouth [place] gram powder 00 daily. Medica l Branch polyethylen 2020-04 Yes [id number] 17g Take 1 [facility] e glycol 0-29 Packet by ity of 3350 17 00:00: mouth [place] gram powder 00 daily. Medica l Branch polyethylen 2020-04 Yes [id number] 17g Take 1 [facility] e glycol 0-29 Packet by ity of 3350 17 00:00: mouth [place] gram powder 00 daily. Medica l Branch polyethylen 2020-04 Yes [id number] 17g Take 1 [facility] e glycol 0-29 Packet by ity of 3350 17 00:00: mouth [place] gram powder 00 daily. Medica l Branch polyethylen 2020-04 Yes [id number] 17g Take 1 [facility] e glycol 0-29 Packet by ity of 3350 17 00:00: mouth [place] gram powder 00 daily. Medica l Branch polyethylen 2020-04 Yes [id number] 17g Take 1 [facility] e glycol 0-29 Packet by ity of 3350 17 00:00: mouth [place] gram powder 00 daily. Medica l Branch polyethylen 2020-04 Yes [id number] 17g Take 1 [facility] e glycol 0-29 Packet by ity of 3350 17 00:00: mouth [place] gram powder 00 daily. Medica l Branch polyethylen 2020-04 Yes [id number] 17g Take 1 [facility] e glycol 0-29 Packet by ity of 3350 17 00:00: mouth [place] gram powder 00 daily. Medica l Branch polyethylen 2020-04 Yes [id number] 17g Take 1 [facility] e glycol 0-29 Packet by ity of 3350 17 00:00: mouth [place] gram powder 00 daily. Medica l Branch polyethylen 2020-04 Yes [id number] 17g Take 1 [facility] e glycol 0-29 Packet by ity of 3350 17 00:00: mouth [place] gram powder 00 daily. Medica l Branch polyethylen 2020-04 Yes [id number] 17g Take 1 [facility] e glycol 0-29 Packet by ity of 3350 17 00:00: mouth [place] gram powder 00 daily. Medica l Branch polyethylen 2020-04 Yes [id number] 17g Take 1 [facility] e glycol 0-29 Packet by ity of 3350 17 00:00: mouth [place] gram powder 00 daily. Medica l Branch polyethylen 2020-04 Yes [id number] 17g Take 1 [facility] e glycol 0-29 Packet by ity of 3350 17 00:00: mouth [place] gram powder 00 daily. Medica l Branch polyethylen 2020-04 Yes [id number] 17g Take 1 [facility] e glycol 0-29 Packet by ity of 3350 17 00:00: mouth [place] gram powder 00 daily. Medica l Branch polyethylen 2020-04 Yes [id number] 17g Take 1 [facility] e glycol 0-29 Packet by ity of 3350 17 00:00: mouth [place] gram powder 00 daily. Medica l Branch polyethylen 2020-04 Yes [id number] 17g Take 1 [facility] e glycol 0-29 Packet by ity of 3350 17 00:00: mouth [place] gram powder 00 daily. Medica l Branch polyethylen 2020-04 Yes [id number] 17g Take 1 [facility] e glycol 0-29 Packet by ity of 3350 17 00:00: mouth [place] gram powder 00 daily. Medica l Branch polyethylen 2020-04 Yes [id number] 17g Take 1 [facility] e glycol 0-29 Packet by ity of 3350 17 00:00: mouth [place] gram powder 00 daily. Medica l Branch polyethylen 2020-04 Yes [id number] 17g Take 1 [facility] e glycol 0-29 Packet by ity of 3350 17 00:00: mouth [place] gram powder 00 daily. Medica l Branch polyethylen 2020-04 Yes [id number] 17g Take 1 [facility] e glycol 0-29 Packet by ity of 3350 17 00:00: mouth [place] gram powder 00 daily. Medica l Branch polyethylen 2020-04 Yes [id number] 17g Take 1 [facility] e glycol 0-29 Packet by ity of 3350 17 00:00: mouth [place] gram powder 00 daily. Medica l Branch polyethylen 2020-04 Yes [id number] 17g Take 1 [facility] e glycol 0-29 Packet by ity of 3350 17 00:00: mouth [place] gram powder 00 daily. Medica l Branch polyethylen 2020-04 Yes [id number] 17g Take 1 [facility] e glycol 0-29 Packet by ity of 3350 17 00:00: mouth [place] gram powder 00 daily. Medica l Branch polyethylen 2020-04 Yes [id number] 17g Take 1 [facility] e glycol 0-29 Packet by ity of 3350 17 00:00: mouth [place] gram powder 00 daily. Medica l Branch polyethylen 2020-04 Yes [id number] 17g Take 1 [facility] e glycol 0-29 Packet by ity of 3350 17 00:00: mouth [place] gram powder 00 daily. Medica l Branch polyethylen 2020-04 Yes [id number] 17g Take 1 [facility] e glycol 0-29 Packet by ity of 3350 17 00:00: mouth [place] gram powder 00 daily. Medica l Branch polyethylen 2020-04 Yes [id number] 17g Take 1 [facility] e glycol 0-29 Packet by ity of 3350 17 00:00: mouth [place] gram powder 00 daily. Medica l Branch polyethylen 2020-04 Yes [id number] 17g Take 1 [facility] e glycol 0-29 Packet by ity of 3350 17 00:00: mouth [place] gram powder 00 daily. Medica l Branch polyethylen 2020-04 Yes [id number] 17g Take 1 [facility] e glycol 0-29 Packet by ity of 3350 17 00:00: mouth [place] gram powder 00 daily. Medica l Branch polyethylen 2020-04 Yes [id number] 17g Take 1 [facility] e glycol 0-29 Packet by ity of 3350 17 00:00: mouth [place] gram powder 00 daily. Medica l Branch polyethylen 2021-1 Yes [id number] 17g Take 1 [facility] e glycol 0-29 Packet by ity of 3350 17 00:00: mouth [place] gram powder 00 daily. Medica l Branch polyethylen 2020-04 Yes [id number] 17g Take 1 [facility] e glycol 0-29 Packet by ity of 3350 17 00:00: mouth [place] gram powder 00 daily. Medica l Branch polyethylen 2020-04 Yes [id number] 17g Take 1 [facility] e glycol 0-29 Packet by ity of 3350 17 00:00: mouth [place] gram powder 00 daily. Medica l Branch polyethylen 2020-04 Yes [id number] 17g Take 1 [facility] e glycol 0-29 Packet by ity of 3350 17 00:00: mouth [place] gram powder 00 daily. Medica l Branch polyethylen 2020-04 Yes [id number] 17g Take 1 [facility] e glycol 0-29 Packet by ity of 3350 17 00:00: mouth [place] gram powder 00 daily. Medica l Branch docusate 2020-04 Yes [id number] 100mg Take 1 [facility] nivers 100 mg 0-28 capsule by ity of capsule 00:00: mouth 2 (two) Medical times Branch daily. docusate 2020-04 Yes [id number] 100mg Take 1 [facility] nivers 100 mg 0-28 capsule by ity of capsule 00:00: mouth 2 (two) Medical times Branch daily. docusate 2020-04 Yes [id number] 100mg Take 1 [facility] nivers 100 mg 0-28 capsule by ity of capsule 00:00: mouth 2 (two) Medical times Branch daily. docusate 2020-04 Yes [id number] 100mg Take 1 [facility] nivers 100 mg 0-28 capsule by ity of capsule 00:00: mouth 2 (two) Medical times Branch daily. docusate 2020-04 Yes [id number] 100mg Take 1 [facility] nivers 100 mg 0-28 capsule by ity of capsule 00:00: mouth 2 (two) Medical times Branch daily. docusate 2020-04 Yes [id number] 100mg Take 1 [facility] nivers 100 mg 0-28 capsule by ity of capsule 00:00: mouth 2 (two) Medical times Branch daily. docusate 2020-04 Yes [id number] 100mg Take 1 U nivers 100 mg 0-28 capsule by ity of capsule 00:00: mouth (two) Medical times Branch daily. docusate 2020-04 Yes [id number] 100mg Take 1 U nivers 100 mg 0-28 capsule by ity of capsule 00:00: mouth (two) Medical times Branch daily. docusate 2020-04 Yes [id number] 100mg Take 1 U nivers 100 mg 0-28 capsule by ity of capsule 00:00: mouth (two) Medical times Branch daily. docusate 2020-04 Yes [id number] 100mg Take 1 U nivers 100 mg 0-28 capsule by ity of capsule 00:00: mouth (two) Medical times Branch daily. docusate 2020-04 Yes [id number] 100mg Take 1 U nivers 100 mg 0-28 capsule by ity of capsule 00:00: mouth (two) Medical times Branch daily. docusate 2020-04 Yes [id number] 100mg Take 1 U nivers 100 mg 0-28 capsule by ity of capsule 00:00: mouth (two) Medical times Branch daily. docusate 2020-04 Yes [id number] 100mg Take 1 U nivers 100 mg 0-28 capsule by ity of capsule 00:00: mouth (two) Medical times Branch daily. docusate 2020-04 Yes [id number] 100mg Take 1 U nivers 100 mg 0-28 capsule by ity of capsule 00:00: mouth (two) Medical times Branch daily. docusate 2020-04 Yes [id number] 100mg Take 1 U nivers 100 mg 0-28 capsule by ity of capsule 00:00: mouth (two) Medical times Branch daily. docusate 2020-04 Yes [id number] 100mg Take 1 U nivers 100 mg 0-28 capsule by ity of capsule 00:00: mouth (two) Medical times Branch daily. docusate 2020-04 Yes [id number] 100mg Take 1 U nivers 100 mg 0-28 capsule by ity of capsule 00:00: mouth (two) Medical times Branch daily. docusate 2020-04 Yes [id number] 100mg Take 1 U nivers 100 mg 0-28 capsule by ity of capsule 00:00: mouth (two) Medical times Branch daily. docusate 2020-04 Yes [id number] 100mg Take 1 U nivers 100 mg 0-28 capsule by ity of capsule 00:00: mouth (two) Medical times Branch daily. docusate 2020-04 Yes [id number] 100mg Take 1 U nivers 100 mg 0-28 capsule by ity of capsule 00:00: mouth (two) Medical times Branch daily. docusate 2020-04 Yes [id number] 100mg Take 1 U nivers 100 mg 0-28 capsule by ity of capsule 00:00: mouth (two) Medical times Branch daily. docusate 2020-04 Yes [id number] 100mg Take 1 U nivers 100 mg 0-28 capsule by ity of capsule 00:00: mouth (two) Medical times Branch daily. docusate 2020-04 Yes [id number] 100mg Take 1 [facility] nivers 100 mg 0-28 capsule by ity of capsule 00:00: mouth (two) Medical times Branch daily. docusate 2020-04 Yes [id number] 100mg Take 1 U nivers 100 mg 0-28 capsule by ity of capsule 00:00: mouth (two) Medical times Branch daily. docusate 2020-04 Yes [id number] 100mg Take 1 [facility] nivers 100 mg 0-28 capsule by ity of capsule 00:00: mouth (two) Medical times Branch daily. docusate 2020-04 Yes [id number] 100mg Take 1 [facility] nivers 100 mg 0-28 capsule by ity of capsule 00:00: mouth (two) Medical times Branch daily. docusate 2020-04 Yes [id number] 100mg Take 1 [facility] nivers 100 mg 0-28 capsule by ity of capsule 00:00: mouth (two) Medical times Branch daily. docusate 2020-04 Yes [id number] 100mg Take 1 U nivers 100 mg 0-28 capsule by ity of capsule 00:00: mouth (two) Medical times Branch daily. docusate 2020-04 Yes [id number] 100mg Take 1 [facility] nivers 100 mg 0-28 capsule by ity of capsule 00:00: mouth (two) Medical times Branch daily. docusate 2020-04 Yes [id number] 100mg Take 1 [facility] nivers 100 mg 0-28 capsule by ity of capsule 00:00: mouth (two) Medical times Branch daily. docusate 2020-04 Yes [id number] 100mg Take 1 [facility] nivers 100 mg 0-28 capsule by ity of capsule 00:00: mouth (two) Medical times Branch daily. docusate 2020-04 Yes [id number] 100mg Take 1 U nivers 100 mg 0-28 capsule by ity of capsule 00:00: mouth (two) Medical times Branch daily. docusate 2020-04 Yes [id number] 100mg Take 1 U nivers 100 mg 0-28 capsule by ity of capsule 00:00: mouth (two) Medical times Branch daily. docusate 2020-04 Yes [id number] 100mg Take 1 U nivers 100 mg 0-28 capsule by ity of capsule 00:00: mouth (two) Medical times Branch daily. docusate 2020-04 Yes [id number] 100mg Take 1 [facility] nivers 100 mg 0-28 capsule by ity of capsule 00:00: mouth (two) Medical times Branch daily. docusate 2020-04 Yes [id number] 100mg Take 1 U nivers 100 mg 0-28 capsule by ity of capsule 00:00: mouth (two) Medical times Branch daily. docusate 2020-04 Yes [id number] 100mg Take 1 U nivers 100 mg 0-28 capsule by ity of capsule 00:00: mouth (two) Medical times Branch daily. docusate 2020-04 Yes [id number] 100mg Take 1 U nivers 100 mg 0-28 capsule by ity of capsule 00:00: mouth (two) Medical times Branch daily. warfarin 2 Yes Atrial 2mg Take 1 Uni vers mg tablet -08 flutter, tablet by i ty of 00:00: unspecified mouth 00 type every Medical evening. Branch Take 1 tablet by mouth 7 days a week. sotaloL 80 2019- Yes 80mg Take 1 [facility] rs mg tablet 1-17 tablet by ity o f 00:00: mouth 2 (two) Medical times Branch daily. atorvastati 2019- Yes Mixed 40mg Take 1 Uni vers n 40 mg 1-17 hyperlipide tablet by ity of tablet 00:00: [place] mouth at [place] [id number] bedtime. Medical Branch zolpidem 10 2016-0 Yes [...] of capsule 00:00: daily. [place] [facility] gabapentin 2017-0 Yes Take [...] mg/patch) 00:00: [place] patch 00 Medical Branch HYDROcodone 2017-0 Yes [facility] s -acetaminop 4-21 ity of hen 10-325 00:00: [place] mg tablet 00 Medical Branch lidocaine 5 2017-0 Yes [facility] % (700 4-21 ity of mg/patch) 00:00: [place] patch 00 Medical Branch pantoprazol 2017-0 Yes Univer [...] EC 4-14 ity of tablet 00:00: [place] 00 [facility] pantoprazol 2017-0 Yes Univer s e 40 mg EC 4-14 ity of tablet 00:00: [place] [facility] pantoprazol 2017-0 Yes Univer s e 40 mg EC 4-14 ity of tablet 00:00: [place] [facility] pantoprazol 2017-0 Yes Univer s e 40 mg EC 4-14 ity of tablet 00:00: [place] [facility] pantoprazol 2017-0 Yes Univer s e 40 mg EC 4-14 ity of tablet 00:00: [place] [facility] pantoprazol 2017-0 Yes Univer s e 40 mg EC 4-14 ity of tablet 00:00: [place] [facility] pantoprazol 2017-0 Yes Univer s e 40 mg EC 4-14 ity of tablet 00:00: [address] pantoprazol 2017-0 Yes Univer s e 40 mg EC 4-14 ity of tablet 00:00: [facility] pantoprazol 2017-0 Yes Univer s e 40 mg EC 4-14 ity of tablet 00:00: [address] pantoprazol 2017-0 Yes Univer s e 40 mg EC 4-14 ity of tablet 00:00: [place] [facility] pantoprazol 2017-0 Yes Univer s e 40 mg EC 4-14 ity of tablet 00:00: [facility] pantoprazol 2017-0 Yes Univer s e 40 mg EC 4-14 ity of tablet 00:00: [facility] pantoprazol 2017-0 Yes Univer s e 40 mg EC 4-14 ity of tablet 00:00: [facility] pantoprazol 2017-0 Yes Univer s e 40 mg EC 4-14 ity of tablet 00:00: [facility] pantoprazol 2017-0 Yes Univer s e 40 mg EC 4-14 ity of tablet 00:00: [facility] pantoprazol 2017-0 Yes Univer s e 40 mg EC 4-14 ity of tablet 00:00: [facility] pantoprazol 2017-0 Yes Univer s e 40 mg EC 4-14 ity of tablet 00:00: [place] [facility] pantoprazol 2017-0 Yes Univer s e 40 [...] Immunizations Ordered Filled Immunization Date Status Comments [facility] e Immunization Name Name Influenza Virus 2021-03-06 [...] Time Observation Value Comments Source Systolic blood 2022-05-10 17:56:00 153 mm[Hg] Univer sity of pressure [facility] Diastolic blood 2022-05-10 17:56:00 47 mm[Hg] Unive rsity of pressure [facility] Heart rate 2022-05-10 17:54:00 68 /min [facility] Respiratory rate 2022-05-10 17:54:00 20 /min Univ ersity of [facility] Body height 2022-05-10 17:54:00 160 cm [facility] Body weight 2022-05-10 17:54:00 46.085 kg [facility] [place] [facility] BMI 2022-05-10 17:54:00 18.00 kg/m2 Universi ty [facility] Medical Branch Oxygen saturation in 2022-05-10 17:54:00 99 /min University of Arterial blood by [facility] Pulse oximetry Branch Systolic blood 2022-02-28 19:10:00 161 mm[Hg] Univer sity of pressure [facility] Diastolic blood 2022-02-28 19:10:00 59 mm[Hg] Unive rsity of pressure [facility] Heart rate 2022-02-28 19:10:00 50 /min [facility] [place] [facility] Oxygen saturation in 2022-02-28 19:10:00 100 /min University of Arterial blood by [facility] Pulse oximetry Branch Body temperature 2022-02-28 19:08:00 36.11 [facility] Res[facility] rate 2022-02-28 19:08:00 16 /min [facility] Body weight 2022-02-28 19:08:00 49.125 kg Universi ty [facility] Medical Branch BMI 2022-02-28 19:08:00 19.18 kg/m2 Universi [facility] [place] Procedures Procedure Date / Time Performed Performing Clinician Sour e ASSIGNMENT OF BENEFITS 2022-05-09 16:12:36 Doctor Unassigned, No [facility] ASSIGNMENT OF BENEFITS 2022-04-11 15:35:52 Doctor Unassigned, No [facility] ASSIGNMENT OF BENEFITS 2022-03-14 15:15:00 Doctor Unassigned, No [facility] CONSENT/REFUSAL FOR 2022-02-28 18:42:52 Doctor Unassigned, No Un iversity [facility] DIAGNOSIS AND [facility] Medical Branch TREATMENT CONSENT/REFUSAL FOR 2022-02-14 14:32:17 Doctor Unassigned, No [facility] Medical Branch TREATMENT ASSIGNMENT OF BENEFITS 2022-02-14 14:32:04 Doctor Unassigned, No [facility] Branch ASSIGNMENT OF BENEFITS 2021-12-14 17:04:14 Doctor Unassigned, No [facility] HOSPITAL ADMISSION 2021-11-23 05:01:00 Doctor Unassigned, No Uni [facility]ity [facility] [place] Name Medical Branch Plan of Care Planned Activity Planned Date Details Comments Source Future Scheduled 2021-03-[address] [facility] Test 00:00:00 (procedure) [code = Medical Branch 987042587] Future Scheduled 2020-12-14 INFLUENZA VACCINE Univer sity [facility] Test 00:00:00 (Season Ended) [code = Medic al Branch INFLUENZA VACCINE (Season Ended)] Future Scheduled 2020-10-[address] [facility] Test 00:00:00 malignant neoplasm of Medica l Branch breast (procedure) [code = 996585970] Future Scheduled 2018 Medicare Annual [facility] Test 00:00:00 Wellness Visit Medical [facility] (procedure) [code = 292381009183661] Future Scheduled [address] [facility] Test 00:00:00 osteoporosis Medical Branch (procedure) [code = 541330735] Future Scheduled 2018 PNEUM[address]OCCAL VACCINES [facility] Test 00:00:00 65+ (1 of 1 - PPSV23) Medica l Branch [code = PNEUMOCOCCAL VACCINES 65+ (1 of 1 - PPSV23)] Future Scheduled 2017-02-05 Screening for occult Uni [facility] Test 00:00:00 blood in feces Medical [facility] h (procedure) [code = 411174229] Future Scheduled 2017-02-[address] [facility] Test 00:00:00 malignant neoplasm of Medica l Branch colon (procedure) [code = 550911163] Future Scheduled 2003 Stool DNA-based [facility] Test 00:00:00 colorectal cancer Medical Br anch screening (procedure) [code = 192869776985188] Future Scheduled 2003 Flexible fiberoptic [facility] Test 00:00:00 sigmoidoscopy Medical Branch (procedure) [code = 20660928] Future Scheduled [address] [facility] Test 00:00:00 malignant neoplasm of Medica l Branch colon (procedure) [code = 312776288] Future Scheduled 2003 Zoster Recombinant Unive [facility] Test 00:00:00 Vaccine (SHINGRIX) (1 Medica l Branch of 2) [code = Zoster Recombinant Vaccine (SHINGRIX) (1 of 2)] Future Scheduled 1972 DTaP,Tdap,and Td Univers ity [facility] Test 00:00:00 Vaccines (1 - Tdap) [facility] [code = DTaP,Tdap,and Td Vaccines (1 - Tdap)] Future Scheduled 1971 Hepatitis C screening [facility] Test 00:00:00 (procedure) [code = Medical Branch [id number]] Future Scheduled 1969 SARS-CoV-2 (COVID-19) Un iversity [facility] Test 00:00:00 Vaccine (1) [code = Medical Branch SARS-CoV-2 (COVID-19) Vaccine (1)] Encounters Start End Encounter Admission Attending Care Care Encounter Source Date/Time Date/Time Type Type Clinicians Facility Department ID 2021-11-20 Inpatient R REBECA HODGE [facility] [id number] Univers 15:24:28 REBECA HODGE i ty of [facility] 2021-09-21 Outpatient Dobson, STLMLC STLC [id number] Common 10:27:03 Saurabh [facility] 2022-11-08 2022-11-[address] [facility] [id number] Univers 08:00:00 08:00:00 WAYNE ity [facility] 2022-08-28 2022-08-[address] [facility] [id number] Univers 13:00:00 13:00:00 [place] scotty o f [facility] 2022-05-10 2022-05-[address] [facility] [id number] Univers 11:40:00 12:05:03 WAYNE ity [facility] 2022-05-10 2022-05-10 [facility] 1.2.840.114 [id number] Univers 11:40:00 12:00:00 Visit Wayne ARANDA 350.1.13.10 i ty [facility] 4.2.7.2.686 Jose Elias REYES [phone] Tx dical [facility] 059 Branch [facility] 2022-05-09 2022-05-09 Crate Opener Farnaz, Andre Lab Main [facility] 1.2.8 40.114 [id number] Univers 10:30:00 10:45:00 Visit [place] Pompa 350.1.13.10 ity [facility] [place].2.[place] [phone] Tx dical NAL 353 [facility] 2022-05-09 2022-05-09 [facility] [id number] Univers 10:30:00 10:30:00 [place] perez o f [facility] 2022-05-09 2022-05-09 Orders Doctor WILLS 1.2.840.114 [id number] Univers 00:00:00 00:00:00 Only Unassigned, MIKE 350.1.13.10 ity of [place] [facility] 4.2.7.2.686 Babak as [phone] [address] 2022-05-09 2022-05-09 [facility] 1.2.479.113 [id number] Univers 00:00:00 00:00:00 [place] ARANDA 350.1.13.10 ity of [place]7.2.[place] [phone] Tx dical NAL 059 [facility] 2022-04-12 2022-04-12 [facility] [id number] Univers 11:00:00 11:00:00 WAYNE ity [facility] 2022-04-12 2022-04-12 [facility]patient [facility] [id number] Univers 11:00:00 11:00:00 WAYNE ity [facility] 2022-04-11 2022-04-11 Crate Opener Farnaz, Andre Lab Main [facility] 1.2.8 40.114 [id number] Univers 09:45:00 10:00:00 Visit [place] Pompa 350.1.13.10 ity [facility] 4.2.7.2.[place] [phone] Tx dical NAL 353 [facility] 2022-04-11 2022-04-11 Outpatient [facility] [id number] Univers 09:45:00 09:45:00 [place] perez o f [facility] 2022-04-11 2022-04-11 Orders Doctor WILLS 1.2.840.114 [id number] Univers 00:00:00 00:00:00 Only Unassigned, MIKE 350.1.13.10 ity of [place] [facility] 4.2.7.2.686 Babak as [phone] [facility] 009 [place] 2022-04-11 2022-04-11 Telephone [facility] 1.2.695.850 [id number] Univers 00:00:00 00:00:00 Qiajuan [place] 350.1.13.10 ity [facility] 4.2.7.[place] [phone] Tx dic[address] 2022-03-30 2022-03-30 [facility]ill [facility] 1.2.840.114 [id number] Univers 00:00:00 00:00:00 [place] 350.1.13.10 ity of [place] 4[place].7.2.[place] [phone] [address] 2022-03-15 2022-03-15 Telephone [facility] 1.2.688.241 [id number] [facility] 00:00:00 00:00:00 Wayne ROSI 350.1.13.10 i ty [facility] 4.2.[place] [phone] [address] 2022-03-14 2022-03-14 Outpatient [facility] [id number] Univers 09:30:00 09:30:00 [place] perez o f [facility] 2022-03-14 2022-03-14 Orders Doctor WILLS 1.2.840.114 [id number] Univers 00:00:00 00:00:00 Only Unassigned, MIKE 350.1.13.10 ity of [place] [facility] 4.2.7.2.686 Babak as [phone] [address] 2022-03-14 2022-03-14 Telephone [facility] 1.2.996.865 [id number] Univers 00:00:00 00:00:00 [place] 350.1.13.10 ity [facility] 4.2.7.[place] [phone] Tx dical NAL 059 [facility] 2022-02-28 2022-02-28 Crate Opener 1, Adc Lab [facility] 1.2.840.114 [id number] Univers 13:30:00 13:45:00 Visit [place] Pom[place] 350.1.13.10 ity of [facility] 4.2.7.2.[place] [phone] [facility] 353 [place] 2022-02-28 2022-02-28 Outpatient R SY, [facility] [id number] Univers 13:00:00 13:20:24 [facility] 2022-02-28 2022-02-28 Office Sy, [facility] 1.2.840.114 [id number] Univers 13:00:00 13:20:24 Visit [place] CAMPJAVIER 350.1.13.10 ity of [place] 4[place]2.7.2.[place] [phone] Tx dical NAL 9 [facility] 2022-02-28 2022-02-28 Outpatient R SY, [facility] [id number] Univers 13:00:00 13:00:00 [place] perez o [facility] 2022-02-28 2022-02-28 Outpatient R SY, [facility] [id number] Univers 13:00:00 13:00:00 [place] perez o [facility] 2022-02-28 2022-02-28 Outpatient R SY, [facility] [id number] Univers 13:00:00 13:00:00 [place] perez o [facility] 2022-02-28 2022-02-28 Orders Doctor JOHANN 1.2.840.114 [id number] Univers 00:00:00 00:00:00 Only Unassigned, MIKE 350.1.13.10 [facility] 4.2.7.2.686 Babak as [phone] [facility] 009 [place] 2022-02-28 2022-02-28 Telephone Sy, [facility] 1.2.268.654 [id number] Univers 00:00:00 00:00:00 Qiangjun [place] 350.1.13.10 ity of [place] 4.2.7.2.[place] [phone] Tx dical NAL 059 [facility] 2022-02-14 2022-02-14 Crate Opener Farnaz, Adc Lab Main [facility] 1.2.8 40.114 [id number] Univers 09:45:00 10:00:00 Visit Sy Rogerzaheer [place] 350.1.13.10 ity of [place] 4.2.7.2.[place] [phone] Tx dical NAL 353 [facility] 2022-02-14 2022-02-14 Outpatient [facility] [id number] Univers 09:45:00 09:45:00 [place] ity o f [facility] 2022-02-14 2022-02-14 Orders Doctor JOHANN 1.2.840.114 [id number] Univers 00:00:00 00:00:00 Only Unassigned, MIKE 350.1.13.10 [facility] 4.2.7.2.686 Babak as [phone] [address] 2022-02-14 2022-02-14 Telephone [facility] 1.2.574.131 [id number] Univers 00:00:00 00:00:00 Qiamerjun [place] 350.1.13.10 ity of [place] 4.2.7.2.686 [place] [phone] Tx dical NAL 059 [facility] 2022-02-13 2022-02-13 [facility] 1.2.840.114 [id number] Univers 00:00:00 00:00:00 Qiangjun [place] 350.1.13.10 ity of [place] 4[place]2.7.2.[place] [phone] Tx dical NAL 059 [facility] 2022-01-27 2022-01-27 Telephone [facility] 1.2.852.042 [id number] Univers 00:00:00 00:00:00 Qiamerjun [place] 350.1.13.10 ity of [place] 4[place]2.7.2.[place] [phone] Tx dical NAL 059 [facility] 2022-01-25 2022-01-25 Crate Opener Farnaz, Adc Lab Main [facility] 1.2.8 40.114 [id number] Univers 08:45:00 09:00:00 Visit [place] 350.1.13.10 ity of [place] 4.2.7.2.[place] [phone] Tx dical NAL [address] [place] [address] 2022-01-25 2022-01-25 Outpatient [facility] [id number] Univers 08:45:00 08:45:00 [place] ity o f [facility] 2022-01-19 2022-01-19 Crate Opener Farnaz, Adc Lab Main [facility] 1.2.8 40.114 [id number] Univers 12:30:00 12:45:00 Visit SyJamaicaTON 350.1.13.10 ity of [place] 4.2.7.2.686 [place] [id number] [facility] NAL [address] [place] [address] 2022-01-19 2022-01-19 Outpatient [facility] [id number] Univers 12:30:00 12:30:00 [place] tylerjake o f [facility] 2022-01-19 2022-01-19 Telephone [facility] 1.2.432.865 [id number] Univers 00:00:00 00:00:00 [place] 350.1.13.10 ity of [place] 4.2.7.2.[place] [phone] Tx dical NAL [address] [place] [address] 2022-01-17 2022-01-17 Crate Opener Farnaz, Adc Lab Main [facility] 1.2.8 40.114 [id number] Univers 08:45:00 09:00:00 Visit SyJamaicaTON 350.1.13.10 ity of [place] 4.2.7.2.[place] [phone] Tx dical NAL [address] [place] [address] 2022-01-17 2022-01-17 Outpatient R [facility] [id number] Univers 08:45:00 08:45:00 QIANGJUN ity o f [facility] 2022-01-17 2022-01-17 [facility] 1.2.158.137 [id number] Univers 00:00:00 00:00:00 Qiangjun [place] 350.1.13.10 ity of [place] 4.2.7.2.[place] [phone] Tx dical NAL 9 [facility] 2021-12-28 2021-12-28 Crate Opener Farnaz, Adc Lab Main [facility] 1.2.8 40.114 [id number] Univers 10:30:00 10:45:00 Visit Yolande Love 350.1.13.10 ity of [place] 4.2.7.2.[place] [id number] Tx dical [facility] 353 [facility] 2021-12-28 2021-12-[address] [facility] [id number] Univers 10:30:00 10:30:00 YOLANDE perez [facility] 2021-12-28 2021-12-28 Telephone YANY [place] 1.2.820.046 [id number] Univers 00:00:00 00:00:00 Catrinangjun PEDIATRIC 350.1.13.10 [place] of [place].2.[place] [phone] [address] 2021-12-15 2021-12-15 [facility]phone [facility] 1.2.767.128 [id number] Univers 00:00:00 00:00:00 Qiangjun [place] 350.1.13.10 ity of [place] 4.2.7.2.[place] [phone] Tx dical NAL [address] [place] [address] 2021-12-15 2021-12-15 [facility]phone [facility] 1.2.726.757 [id number] Univers 00:00:00 00:00:00 Qiangjun [place] 350.1.13.10 ity of [place] 4.2.7.2.[place] [phone] Tx dical NAL [address] [place] [address] 2021-12-15 2021-12-15 [facility]ill [facility] 1.2.840.114 [id number] Univers 00:00:00 00:00:00 Rogerzaheer ROSI 350.1.13.10 it[facility] 4.2.7.2.[place] [phone] Tx dical NAL 059 [facility] 2021-12-14 2021-12-14 Crate Opener Farnaz, Adc Lab Main [facility] 1.2.8 40.114 [id number] Univers 12:30:00 12:45:00 Visit [place] PompaJAVIER 350.1.13.10 ity [facility] 4.2.7.2.[place] [id number] Tx dical NAL 353 [facility] 2021-12-14 2021-12-14 Outpatient R [facility] [id number] Univers 12:30:00 12:30:00 [place] perez o f [facility] 2021-12-14 2021-12-14 Orders Doctor JOHANN 1.2.840.114 [id number] Univers 00:00:00 00:00:00 Only Unassigned, MIKE 350.1.13.10 ity of [place] [facility] 4.2.7.2.686 Babak as [phone] [address] 2021-12-04 2021-12-04 Crate Opener Farnaz, Adc Lab Main [facility] 1.2.8 40.114 [id number] Univers 14:15:00 14:30:00 Visit [place] Pom[place] 350.1.13.10 ity [facility] 4.2.7.2.[place] [phone] Tx dical NAL 353 [facility] 2021-12-04 2021-12-04 Outpatient [facility] [id number] Univers 14:15:00 14:15:00 [place] scotty o f [facility] 2021-12-04 2021-12-04 Outpatient [facility] [id number] Univers 14:15:00 14:15:00 [place] scotty o f [facility] 2021-12-04 2021-12-04 Transition ALESIA Gamez 1.2.840.114 [id number] Univers 00:00:00 00:00:00 of Care Georgie SAMANIEGO 350.1.13.10 it y of [place] 4[place]2.7.2.[place] [phone] [facility] [address] 2021-12-04 2021-12-04 Telephone Sy [facility] 1.2.530.191 [id number] Univers 00:00:00 00:00:00 [place] ARANDA 350.1.13.10 ity of [place] 4.2.7.2.[place] [phone] Tx dicsd NAL 9 [facility] 2021-11-23 2021-12-01 Inpatient R [facility] [id number] Univers 15:31:00 14:11:00 REBECA HODGE ity of [facility] 2021-11-23 2021-12-01 [facility] SHAYAN Hodge 1.2.008.881 [id number] Univers 15:31:00 14:11:00 Encounter Rebeca MCKEON 350.1.13.10 ity of [facility] 4.2.7.2.686 Babak as [phone] [facility] 089 [place] 2021-12-01 2021-12-01 Telephone Hima [facility] 1.2.027.167 [id number] Univers 00:00:00 00:00:00 Wayne ARANDA 350.1.13.10 i ty of [place] 4[place]2.7.2.[place] [phone] Tx dical NAL 059 [facility] 2021-11-23 2021-11-23 Orders Doctor JOHANN 1.2.840.114 [id number] Univers 00:00:00 00:00:00 Only Unassigned, MIKE 350.1.13.10 ity of [place] [facility] 4.2.7.2.686 Babak as [phone] [facility] 009 Branch 2021-11-22 2021-11-22 Crate Opener Farnaz, Adc Lab Main [facility] 1.2.8 40.114 [id number] Univers 07:45:00 08:00:00 Visit Sy, Qiangjun [place] 350.1.13.10 ity of [place] 4.2.7.2.[place] [phone] Tx dical [address] 2021-11-22 2021-11-22 Outpatient R SY, [facility] [id number] Univers 07:45:00 07:45:00 QIAJUAN ity o f [facility] 2021-11-22 2021-11-22 Outpatient R SY, [facility] [id number] Univers 07:45:00 07:45:00 QIANGZAHEER ity o [facility] 2021-11-20 2021-11-20 [facility] 1.2.709.205 [id number] Univers 00:00:00 00:00:00 [place] 350.1.13.10 ity of [place] 4[place].7.2.[place] [phone] [address] 2021-11-10 2021-11-10 Crate Opener Farnaz, Adc Lab Main [facility] 1.2.8 40.114 [id number] Univers 16:45:00 17:00:00 Visit [place] PompaTON 350.1.13.10 ity of [place] 4.2.7.2.[place] [phone] [address] 2021-11-10 2021-11-10 Outpatient R SY, [facility] [id number] Univers 16:45:00 16:45:00 [place] scotty o [facility] 2021-11-10 2021-11-10 Outpatient R SY, [facility] [id number] Univers 16:45:00 16:45:00 [place] ity o [facility] 2021-11-10 2021-11-10 Telephone [facility] 1.2.143.689 [id number] Univers 00:00:00 00:00:00 [place] 350.1.13.10 ity of [place] 4[place]2.7.2.[place] [phone] [address] 2021-11-07 2021-11-07 Telephone Stefanie [facility] 1.2.840.114 [id number] Univers 00:00:00 00:00:00 h, Tareq HEALTH 350.1.13.10 i ty of [place]2.7.2.[place] [id number] [address] 2021-11-06 2021-11-06 Crate Opener Farnaz, Andre Lab Main [facility] 1.2.8 40.114 [id number] Univers 13:15:00 13:30:00 Visit [place] 350.1.13.10 ity of [place] 4.2.7.2.[place] [phone] [facility] 353 [facility] 2021-11-06 2021-11-[address] [facility] [id number] Univers 13:15:00 13:15:00 ROGERZAHEER ana [facility] [place] 2021-11-06 2021-11-[address] [facility] [id number] Univers 13:15:00 13:15:00 ROGERZAHEER ana o [facility] 2021-11-06 2021-11-06 [facility] 1.2.635.672 [id number] Univers 00:00:00 00:00:00 Rogerzaheer KENANJAVIER 350.1.13.10 ity of [place] 4.2.7.2.[place] [phone] [address] 2021-11-06 2021-11-06 [facility]phone [facility] [id number] Univers 00:00:00 00:00:00 Wayne HEALTH [id number] [id number] [id number] [address] 2021-11-03 2021-11-[address] [facility] [id number] Univers 15:00:00 15:40:28 WAYNE ity of [facility] 2021-11-03 2021-11-03 [facility] [id number] Univers 15:00:00 15:40:28 WAYNE ity of [facility] 2021-11-03 2021-11-03 Office [facility] [id number] Univers 15:00:00 15:20:00 Visit Wayne ROSI [id number] i ty [facility] [id number] [id number] [place] dical NAL 9 [facility] 2021-11-03 2021-11-03 [facility]patient [facility] [id number] Univers 15:00:00 15:00:00 WAYNE ity [facility] 2021-11-03 2021-11-03 Crate Opener Farnaz, Andre [facility] [id number] Univers 14:30:00 14:45:00 Visit [place] [id number] ity of [id number] [phone] [place] [facility]ical [facility] WAYNE 353 [facility] 2021-11-03 2021-11-03 Outpatient [facility] [id number] Univers 11:00:00 11:00:00 WAYNE ity of [facility] 2021-11-03 2021-11-03 Outpatient R [facility] [id number] Univers 11:00:00 11:00:00 WAYNE ity of [facility] 2021-11-03 2021-11-03 Outpatient R [facility] [id number] Univers 11:00:00 11:00:00 WAYNE ity of [facility] 2021-11-03 2021-11-03 [facility] 1.2.256.557 [id number] Univers 00:00:00 00:00:00 Rogerjun [place] 350.1.13.10 ity of [place] [phone] Tx dical NAL [address] [place] [address] 2021-10-25 2021-10-25 [facility] 1.2.840.114 [id number] Univers 00:00:00 00:00:00 Qiangjun [place] 350.1.13.10 ity of [place] [phone] Tx dical NAL 059 [facility] 2021-10-23 2021-10-23 Crate Opener Farnaz, Adc Lab Main [facility] 1.2.8 40.114 [id number] Univers 10:15:00 10:30:00 Visit Sy Rogerzaheer ROSI 350.1.13.10 [facility] 4[place] [phone] Tx dical NAL 353 [facility] 2021-10-23 2021-10-23 Outpatient R [facility] [id number] Univers 10:15:00 10:15:00 ROGERZAHEER ana o f [facility] 2021-10-23 2021-10-23 Outpatient R [facility] [id number] Univers 10:15:00 10:15:00 ROGERZAHEER ana o [facility] 2021-10-23 2021-10-23 Orders Doctor JOHANN 1.2.840.114 [id number] Univers 00:00:00 00:00:00 Only Unassigned, MIKE 350.1.13.10 ity of [place] [facility] 4.2.7.2.686 Babka as [phone] [address] 2021-10-23 2021-10-23 Refill [facility] 1.2.840.114 [id number] Univers 00:00:00 00:00:00 [place] 350.1.13.10 ity of [place] [phone] Tx dical NAL 059 [facility] 2021-10-23 2021-10-23 [facility]phone [facility] 1.2.501.800 [id number] Univers 00:00:00 00:00:00 [place] 350.1.13.10 it[place] of [place] [phone] Tx dical NAL 059 [facility] 2021-10-18 2021-10-18 Crate Opener Farnaz, Adc Lab Main [facility] 1.2.8 40.114 [id number] Univers 09:30:00 09:45:00 Visit [place] PompaTON 350.1.13.10 ity of [place] [phone] Tx dical [facility] 2021-10-18 2021-10-18 Outpatient R SY, [facility] [id number] Univers 09:30:00 09:30:00 QIANGJUN ity o f [facility] 2021-10-18 2021-10-18 Outpatient R SY, [facility] [id number] Univers 09:30:00 09:30:00 QIANGJUN ity o f [facility] 2021-10-18 2021-10-18 Telephone Sy, [facility] 1.2.408.636 [id number] Univers 00:00:00 00:00:00 Qiajuan [place] 350.1.13.10 ity of [place] [phone] [facility] 059 [facility] 2021-10-13 2021-10-13 Crate Opener Farnaz, Adc Lab Main [facility] 1.2.8 40.114 [id number] Univers 10:45:00 11:00:00 Visit [place] 350.1.13.10 ity of [place] [phone] [facility] 353 [facility] 2021-10-13 2021-10-13 Outpatient R SY, [facility] [id number] Univers 10:45:00 10:45:00 QIANGJUN ity o f [facility] 2021-10-13 2021-10-13 Outpatient R SY, [facility] [id number] Univers 10:45:00 10:45:00 QIANGJUN ity o f [facility] 2021-10-13 2021-10-13 Telephone Sy, [facility] 1.2.487.336 [id number] Univers 00:00:00 00:00:00 Qiajuan [place] 350.1.13.10 ity of [place] [phone] Tx dical NAL 059 [facility] 2021-09-27 2021-09-27 Crate Opener Farnaz, Andre Lab Main [facility] 1.2.8 40.114 [id number] Univers 10:15:00 10:30:00 Visit Catrina Pompamerzaheer ROSI 350.1.13.10 ity of [place] [phone] Tx dical NAL 353 [facility] 2021-09-27 2021-09-27 Outpatient R SY, [facility] [id number] Univers 10:15:00 10:15:00 CATRINAJUAN ity o f [facility] 2021-09-27 2021-09-27 Outpatient R SY, [facility] [id number] Univers 10:15:00 10:15:00 ROGERZAHEER tylery o f [facility] 2021-09-27 2021-09-27 Telephone [facility] 1.2.068.473 [id number] Univers 00:00:00 00:00:00 Rogerzaheer [place] 350.1.13.10 ity of [place] [phone] Tx dicsd NAL [address] [place] [address] 2021-09-27 2021-09-27 Telephone [facility] 1.2.003.580 [id number] Univers 00:00:00 00:00:00 Rogerzaheer [place] 350.1.13.10 ity of [place] [phone] Tx dical NAL [address] [place] [address] 2021-09-21 2021-09-21 Refill [facility] 1.2.840.114 [id number] Univers 00:00:00 00:00:00 Qiamerjun [place] 350.1.13.10 ity of [place] [phone] Tx dical NAL [address] [place] [address] 2021-09-01 2021-09-01 Telephone [facility] 1.2.461.338 [id number] Univers 00:00:00 00:00:00 [place] ARANDA 350.1.13.10 [facility] 4.2.7.[place] [phone] Tx dical NAL 059 [facility] 2021-08-30 2021-08-30 Crate Opener Farnaz, Adc Lab Main [facility] 1.2.8 40.114 [id number] Univers 09:00:00 09:15:00 Visit [place] Pom[place] 350.1.13.10 [facility] 4.2.[place] [phone] Tx dical NAL 353 [facility] 2021-08-30 2021-08-30 [facility] [id number] Univers 09:00:00 09:00:00 ROGERZAHEER ana o [facility] 2021-08-30 2021-08-30 [facility]patient [facility] [id number] Univers 09:00:00 09:00:00 [place] perez o [facility] 2021-08-30 2021-08-30 Orders Doctor JOHANN 1.2.840.114 [id number] Univers 00:00:00 00:00:00 Only Unassigned, MIKE 350.1.13.10 ity of [place] [facility] 4.2.7.2.686 Babak as [phone] [address] 2021-08-30 2021-08-30 [facility] 1.2.687.584 [id number] Univers 00:00:00 00:00:00 Rogerzaheer ARANDA 350.1.13.10 it[place] of [place] [phone] Tx dical NAL 9 [facility] 2021-08-28 2021-08-28 Office [facility] 1.2.840.114 [id number] Univers 10:40:00 10:49:42 Visit [place] ARANDA 350.1.13.10 [facility] 4.2.7.[place] [phone] Tx richaal NAL 9 [facility] 2021-08-28 2021-08-28 Outpatient R SY, [facility] [id number] Univers 10:40:00 10:49:42 [place] hayes [facility] 2021-08-28 2021-08-28 Outpatient R SY, [facility] [id number] Univers 10:40:00 10:40:00 [place] perez o abigail [facility] 2021-08-28 2021-08-28 Outpatient R SY, [facility] [id number] Univers 10:40:00 10:40:00 [place] perez o [facility] 2021-08-16 2021-08-16 Crate Opener Farnaz, Adc Lab Main [facility] 1.2.8 40.114 [id number] Univers 12:15:00 12:30:00 Visit [place] 350.1.13.10 ity of [place] [phone] Tx dical NAL 353 [facility] 2021-08-16 2021-08-16 Outpatient R SY, [facility] [id number] Univers 12:15:00 12:15:00 [place] jimenes [facility] 2021-08-16 2021-08-16 Outpatient R SY, [facility] [id number] Univers 12:15:00 12:15:00 AJMAICA jimenes [facility] 2021-08-16 2021-08-16 Orders Doctor WILLS 1.2.840.114 [id number] Univers 00:00:00 00:00:00 Only Unassigned, MIKE 350.1.13.10 [facility] 4.2.7.2.686 Babak as [phone] [address] 2021-08-16 2021-08-16 Telephone Sy, [facility] 1.2.715.937 [id number] Univers 00:00:00 00:00:00 Rogerzaheer ROSI 350.1.13.10 ity of [place] [phone] Tx dical NAL 059 [facility] 2021-08-02 2021-08-02 Crate Opener Farnaz, Adc Lab Main [facility] 1.2.8 40.114 [id number] Univers 09:00:00 09:15:00 Visit [place] 350.1.13.10 [facility] 4.2.7.[place] [phone] Tx dical NAL 353 [facility] 2021-08-02 2021-08-02 Outpatient R [facility] [id number] Univers 09:00:00 09:00:00 QIAMERJUN ity o f [facility] 2021-08-02 2021-08-02 Outpatient R [facility] [id number] Univers 09:00:00 09:00:00 QIAJUAN scotty o f [facility] 2021-08-02 2021-08-02 Orders Doctor JOHANN 1.2.840.114 [id number] Univers 00:00:00 00:00:00 Only Unassigned, MIKE 350.1.13.10 it[place] of [place] [facility] 4.2.7.2.686 Babak as [phone] [address] 2021-08-02 2021-08-02 Telephone [facility] 1.2.476.635 [id number] Univers 00:00:00 00:00:00 Rogerzaheer [place] 350.1.13.10 ity of [place] [phone] Tx dical NAL 059 [facility] 2021-07-10 2021-07-10 Refill [facility] 1.2.840.114 [id number] Univers 00:00:00 00:00:00 [place] 350.1.13.10 ity of [place] [phone] Tx dical NAL 059 [facility] 2021-07-05 2021-07-05 Crate Opener Andre Osei Lab Main [facility] 1.2.8 40.114 [id number] Univers 09:30:00 09:45:00 Visit [place] 350.1.13.10 [facility] 4.2.7.[place] [phone] Tx dical NAL 353 [facility] 2021-07-05 2021-07-05 Outpatient R SY, [facility] [id number] Univers 09:30:00 09:30:00 [place] ity o f [facility] 2021-07-05 2021-07-05 Outpatient R SY, [facility] [id number] Univers 09:30:00 09:30:00 [place] perez o f [facility] 2021-07-05 2021-07-05 [facility] 1.2.038.770 [id number] Univers 00:00:00 00:00:00 [place] ARANDA 350.1.13.10 [facility] 4.2.7.[place] [phone] Tx dickirk [facility] 059 [facility] 2021-06-15 2021-06-15 Crate Opener Farnaz, Adc Lab Main [facility] 1.2.8 40.114 [id number] Univers 09:45:00 10:00:00 Visit [place] 350.1.13.10 [facility] 4.2.7.[place] [phone] Tx dical [facility] 353 [facility] 2021-06-15 2021-06-15 Outpatient R [facility] [id number] Univers 09:45:00 09:23:22 [place] ity o [facility] 2021-06-15 2021-06-15 Outpatient R SY, [facility] [id number] Univers 09:45:00 09:23:22 [place] scotty o [facility] 2021-06-15 2021-06-15 Orders Doctor JOHANN 1.2.840.114 [id number] Univers 00:00:00 00:00:00 Only Unassigned, MIKE 350.1.13.10 it[place] of [place] [facility] 4.2.7.2.686 Babak as [phone] [address] 2021-06-15 2021-06-15 Telephone Sy YANY 1.2.012.173 [id number] Univers 00:00:00 00:00:00 [place] PEDIATRIC 350.1.13.10 [place] [phone] [facility] PRIMARY 059 [facility]IC 2021-05-31 2021-05-31 Crate Opener Farnaz, Andre Lab Main [facility] 1.2.8 40.114 [id number] Univers 10:45:00 11:00:00 Visit Sy [place] ARANDA 350.1.13.10 [facility] 4.2.7.[place] [phone] [facility] 353 [facility] 2021-05-31 2021-05-31 Office [facility] 1.2.840.114 [id number] Univers 10:00:00 10:33:12 Visit [place] ARANDA 350.1.13.10 it[facility] 4.2.7.[place] [phone] [place] 150969 [facility] 2021-05-31 2021-05-31 Outpatient R [facility] [id number] Univers 10:00:00 10:33:12 [place] perez o [facility] 2021-05-31 2021-05-31 Outpatient R [facility] [id number] Univers 10:00:00 10:00:00 [place] perez o [facility] 2021-05-31 2021-05-31 Telephone [facility] 1.2.057.272 [id number] Univers 00:00:00 00:00:00 [place] ARANDA 350.1.13.10 [facility] 4.2.7.[place] [phone] T[place] dic[address] 2021-05-26 2021-05-26 Emergency X JAKE, K [facility] ERT [id number] Univers 17:30:00 20:34:00 ity of [facility] 2021-05-26 2021-05-26 Emergency JakeRicky [facility] 1.2.840.114 [id number] Univers 17:30:00 20:34:00 Myah ARADNA 350.1.13.10 i ty of [place] 4[place]2.7.2.[place] [phone] [facility] 084 [place] 2021-05-26 2021-05-26 Outpatient R SY, [facility] [id number] Univers 10:20:00 10:20:00 [place] perez o [facility] 2021-05-26 2021-05-26 Outpatient R SY, [facility] [id number] Univers 10:20:00 10:20:00 [place] perez o [facility] 2021-05-10 2021-05-10 Crate Opener Farnaz, Adc Lab Main [facility] 1.2.8 40.114 [id number] Univers 08:15:00 08:30:00 Visit Sy, [place] KENANTON 350.1.13.10 [facility] 4.2.7.2.[place] [phone] [facility] 353 [facility] 2021-05-10 2021-05-10 Outpatient R SY, [facility] [id number] Univers 08:15:00 08:15:00 [place] perez o [facility] 2021-05-10 2021-05-10 Outpatient R SY, [facility] [id number] Univers 08:15:00 08:15:00 [place] scotty o [facility] 2021-05-10 2021-05-10 Telephone [facility] 1.2.276.287 [id number] Univers 00:00:00 00:00:00 Rogerjun [place] 350.1.13.10 [facility] 4.2.7.[place] [id number] [facility] 059 [facility] 2021-05-10 2021-05-10 Telephone [facility] 1.2.318.721 [id number] Univers 00:00:00 00:00:00 Qiangjun [place] 350.1.13.10 [facility] 4.2.7.2.[place] [phone] Tx dicsd NAL 059 [facility] 2021-05-09 2021-05-09 Refill [facility] 1.2.840.114 [id number] Univers 00:00:00 00:00:00 Qiangjun [place] 350.1.13.10 it[facility] 4.2.7.2.[place] [phone] Tx dicsd NAL [address] [place] [address] 2021-05-04 2021-05-04 Refill Sy [facility] 1.2.840.114 [id number] Univers 00:00:00 00:00:00 Qiajuan [place] 350.1.13.10 ity of [place] 4[place].2.[place] [phone] [address] 2021-04-28 2021-04-28 Outpatient [facility] [id number] Univers 08:40:00 09:19:00 WAYNE ity of [facility] 2021-04-28 2021-04-28 Office [facility] 1.2.840.114 [id number] Univers 08:40:00 09:19:00 Visit Wayne ROSI 350.1.13.10 i ty [facility] 4.2.7.[place] [phone] [address] 2021-04-28 2021-04-28 Outpatient R [facility] [id number] Univers 08:40:00 09:19:00 WAYNE ity of [facility] 2021-04-28 2021-04-28 Crate Opener Farnaz, Adc Lab Main [facility] 1.2.8 40.114 [id number] Univers 08:00:00 08:15:00 Visit [place] Pompa ROSI 350.1.13.10 ity [facility] 4.2.7.2.[place] [phone] Tx dical NAL [address] [place] [address] 2021-04-27 2021-04-27 Crate Opener Farnaz, Adc Lab Main [facility] 1.2.8 40.114 [id number] Univers 10:45:00 11:00:00 Visit [place] PompaJAVIER 350.1.13.10 ity of [place] 4.2.7.2.[place] [phone] Tx dicsd NAL [address] [place] [address] 2021-04-27 2021-04-[address] [facility] [id number] Univers 10:45:00 10:45:00 [place] perez o f [facility] 2021-04-27 2021-04-27 Outpatient R SY, [facility] [id number] Univers 10:45:00 10:45:00 [place] scotty o f [facility] 2021-04-27 2021-04-27 Telephone YANY [place] 1.2.211.530 [id number] Univers 00:00:00 00:00:00 [place] PEDIATRIC 350.1.13.10 [place] [phone] [place] [id number] [facility] 2021-04-25 2021-04-[address] [facility] [id number] Univers 10:20:00 10:20:00 WAYNE ity [facility] 2021-04-25 2021-04-[address] [facility] [id number] Univers 10:20:00 10:20:00 WAYNE ity [facility] 2021-04-12 2021-04-12 Crate Opener Farnaz, Adc Lab Main [facility] 1.2.8 40.114 [id number] Univers 09:30:00 09:45:00 Visit [place] Pompa ROSI 350.1.13.10 ity of [place].7.2.[place] [phone] Tx dical [facility] [address] [facility] 2021-04-12 2021-04-[address] [facility] [id number] Univers 09:30:00 09:30:00 [place] scotty o [facility] 2021-04-12 2021-04-[address] [facility] [id number] Univers 09:30:00 09:30:00 [place] scotty o [facility] 2021-04-12 2021-04-12 Orders Doctor WILLS 1.2.840.114 [id number] Univers 00:00:00 00:00:00 Only Unassigned, MIKE 350.1.13.10 ity of [place] [facility] 4.2.7.2.686 Babak as [phone] [address] 2021-04-12 2021-04-12 Telephone [facility] 1.2.175.472 [id number] Univers 00:00:00 00:00:00 [place] ARANDA 350.1.13.10 ity of [place].7.2.[place] [phone] Tx dical NAL 059 [facility] 2021-03-29 2021-03-29 Outpatient R [facility] [id number] Univers 11:20:00 11:20:58 [place] scotty o f [facility] 2021-03-29 2021-03-29 Office [facility] 1.2.840.114 [id number] Univers 11:20:00 11:20:58 Visit [place] ARANDA 350.1.13.10 [facility] 4.2.7.2.[place] [phone] Tx dical NAL 059 [facility] 2021-03-28 2021-03-28 Crate Opener Farnaz, Adc Lab Main [facility] 1.2.8 40.114 [id number] Univers 12:13:20 12:28:20 Visit [place] Pompa 350.1.13.10 [facility] 4.2.7.2.[place] [id number] Tx dical NAL 353 [facility] 2021-03-28 2021-03-28 Outpatient R [facility] [id number] Univers 12:15:00 12:15:00 [place] scotty o abigail [facility] 2021-03-28 2021-03-28 Outpatient R [facility] [id number] Univers 12:15:00 12:15:00 [place] tylery o f [facility] 2021-03-28 2021-03-28 Orders Doctor WILLS 1.2.840.114 [id number] Univers 00:00:00 00:00:00 Only Unassigned, MIKE 350.1.13.10 ity of [place] [facility] 4.2.7.2.686 Babak as [phone] [address] 2021-03-28 2021-03-28 [facility] 1.2.451.251 [id number] Univers 00:00:00 00:00:00 [place] 350.1.13.10 ity of [place] 4[place] [phone] [facility] 059 [facility] 2021-03-28 2021-03-28 [facility] 1.2.840.114 [id number] Univers 00:00:00 00:00:00 [place] CMAP[place] 350.1.13.10 ity of [place].2.[place]ESS[place] [id number] [address] 2021-03-20 2021-03-20 Outpatient [facility] [id number] Univers 13:45:00 13:45:00 [place] perez o [facility] 2021-03-20 2021-03-20 Outpatient [facility] [id number] Univers 13:45:00 13:45:00 ROGERZAHEER tylerjake o [facility] 2021-03-20 2021-03-20 Crate Opener Farnaz, [facility] Lab Main [facility] 1.2.8 40.114 [id number] Univers 11:58:29 12:13:29 Visit [place] 350.1.13.10 ity of [place] 4[place]2.7.2.[place] [phone] [facility] 353 [facility] 2021-03-20 2021-03-20 [facility]phone [facility] 1.2.975.891 [id number] Univers 00:00:00 00:00:00 [place] 350.1.13.10 ity of [place] 4[place].2.[place] [phone] [place] dic[address] 2021-03-15 2021-03-15 Outpatient [facility] [id number] Univers 09:15:00 09:15:00 JOSE itjake of [facility] 2021-03-15 2021-03-15 Outpatient Joan [facility] [id number] Univers 09:15:00 09:15:00 JOSE ity of [facility] 2021-03-15 2021-03-15 Crate Opener Andre Osei Lab Main [facility] 1.2.8 40.114 [id number] Univers 08:14:37 08:29:37 Visit Jose Villa ROSI 350.1.13. 10 [facility] 4.2.7.2.[place] [phone] Tx dical NAL 353 [facility] 2021-03-15 2021-03-15 Orders Doctor JOHANN 1.2.840.114 [id number] Univers 00:00:00 00:00:00 Only Unassigned, MIKE 350.1.13.10 ity of [place] [facility] 4.2.7.2.686 Babak as [phone] [facility] 00[address] [place] 2021-03-15 2021-03-15 [place] [facility] 1.2.979.548 [id number] Univers 00:00:00 00:00:00 [place] ARANDA 350.1.13.10 it[place] of [place] [phone] [place] dical NAL 059 [facility] 2021-03-07 2021-03-07 Transition Franco DONNYYandy 1.2.840.114 [id number] Univers 00:00:00 00:00:00 of Care Georgie SAMANIEGO 350.1.13.10 it y [place] [phone] [facility] [address] 2021-03-01 2021-03-06 Inpatient X FABIOLA [facility] BERENICE [id number] Univers 11:31:00 15:17:00 CALEB perez of [facility] 2021-03-01 2021-03-06 Hospital Jamie Deng [facility] 1.2.840.1 [id number] Univers 11:31:00 15:17:00 Encounter Caleb Hicks 350.1.13.10 [facility] [place] [phone] [facility] [address] 2021-03-01 2021-03-01 Outpatient X FABIOLA, [facility] BERENICE [id number] Univers 11:31:00 11:31:00 CALEBEL perez [facility] 2021-02-27 2021-02-27 Outpatient R SY, [facility] [id number] Univers 11:20:00 11:44:55 [place] perez o [facility] 2021-02-27 2021-02-27 Outpatient R SY, [facility] [id number] Univers 11:20:00 11:44:55 [place] perez o [facility] 2021-02-27 2021-02-27 Outpatient R SY, [facility] [id number] Univers 11:20:00 11:44:55 [place] perez o [facility] 2021-02-27 2021-02-27 Outpatient R SY, [facility] [id number] Univers 11:20:00 11:44:55 [place] jimenes [facility] 2021-02-27 2021-02-27 Office Sy, [facility] 1.2.840.114 [id number] Univers 10:54:32 11:44:55 Visit [place] ROSI 350.1.13.10 [place] [phone] [place] dical NAL 059 [facility] 2021-02-27 2021-02-27 Outpatient R SY, [facility] [id number] Univers 10:30:00 10:30:00 [place] jimenes [facility] 2021-02-27 2021-02-27 Outpatient R SY, [facility] [id number] Univers 10:30:00 10:30:00 [place] perez o [facility] 2021-02-27 2021-02-27 Crate Opener Farnaz, Adc Lab Main [facility] 1.2.8 40.114 [id number] Univers 09:52:58 10:07:58 Visit [place] Pom[place] ROSI 350.1.13.10 it[place] of [place] [phone] [place] dical NAL 353 [facility] 2021-02-27 2021-02-27 Orders Doctor JOHANN 1.2.840.114 [id number] Univers 00:00:00 00:00:00 Only Unassigned, MIKE 350.1.13.10 ity of [place] [facility] 4.2.7.2.686 Babak as [phone] [address] 2021-02-27 2021-02-27 Telephone [facility] 1.2.932.866 [id number] Univers 00:00:00 00:00:00 [place] ARANDA 350.1.13.10 [facility] [place] [phone] [place] dical NAL 059 [facility] 2021-02-24 2021-02-24 Outpatient R [facility] [id number] Univers 10:45:00 10:45:00 [place] perez o [facility] 2021-02-24 2021-02-24 Outpatient R [facility] [id number] Univers 10:45:00 10:45:00 [place] perez o f [facility] 2021-02-24 2021-02-24 Crate Opener Farnaz, Andre Lab Main [facility] 1.2.8 40.114 [id number] Univers 09:17:46 09:32:46 Visit [place] 350.1.13.10 [facility] [place] [phone] [place] dical NAL 353 [facility] 2021-02-24 2021-02-24 Telephone [facility] 1.2.171.865 [id number] Univers 00:00:00 00:00:00 [place] CAMPTON 350.1.13.10 it[place] of [place] [phone] [place] dical NAL 059 [facility] 2021-02-24 2021-02-24 Telephone [facility] 1.2.835.881 [id number] Univers 00:00:00 00:00:00 [place] CAMPTON 350.1.13.10 [facility] [place] [phone] Tx dical NAL 059 [facility] 2021-02-24 2021-02-24 Telephone [facility] 1.2.663.956 [id number] Univers 00:00:00 00:00:00 [place] ARANDA 350.1.13.10 it[place] of [place] [phone] Tx dical NAL 059 [facility] 2021-02-15 2021-02-15 Crate Opener Farnaz, Adc Lab Main [facility] 1.2.8 40.114 [id number] Univers 09:47:39 10:02:39 Visit [place] 350.1.13.10 ity of [place] [phone] Tx dical NAL 353 [facility] 2021-02-15 2021-02-15 Outpatient R [facility] [id number] Univers 09:45:00 09:45:00 [place] perez o [facility] 2021-02-15 2021-02-15 Outpatient R [facility] [id number] Univers 09:45:00 09:45:00 [place] perez o [facility] 2021-02-15 2021-02-15 Orders Doctor JOHANN 1.2.840.114 [id number] Univers 00:00:00 00:00:00 Only Unassigned, MIKE 350.1.13.10 ity of [place] [facility] 4.2.7.2.686 Babak as [phone] [address] 2021-02-15 2021-02-15 Telephone [facility] 1.2.171.066 [id number] Univers 00:00:00 00:00:00 [place] ARANDA 350.1.13.10 [facility] [place] [phone] Tx dical NAL 059 [facility] 2021-02-10 2021-02-10 Transition ALESIA Gamez 1.2.840.114 [id number] Univers 00:00:00 00:00:00 of Care Georgie SAMANIEGO 350.1.13.10 it y of [place]2.[place] [phone] [facility] [address] 2021-02-04 2021-02-09 Inpatient X MIGUEL [facility] BERENICE [id number] Univers 20:57:00 13:26:00 JENNIFER ity of [facility] 2021-02-04 2021-02-09 Hospital Drew Dengip [facility] 1.2.840.1 14 [id number] Univers 20:57:00 13:26:00 Encounter Wilber Flowers 350.1.13.10 ity of [place] 4.2.7.2.686 [facility] [phone] [facility] [address] 2021-01-02 2021-01-02 Crate Opener Farnaz, Adc Lab Main [facility] 1.2.8 40.114 [id number] Univers 11:35:12 11:50:12 Visit [place] 350.1.13.10 ity of [place] [phone] Tx dical [facility] 353 [facility] 2021-01-02 2021-01-02 Outpatient R [facility] [id number] Univers 11:45:00 11:45:00 [place] perez o [facility] 2021-01-02 2021-01-02 Outpatient R SY, [facility] [id number] Univers 11:45:00 11:45:00 [place] perez o f [facility] 2021-01-02 2021-01-02 Orders Doctor JOHANN 1.2.840.114 [id number] Univers 00:00:00 00:00:00 Only Unassigned, MIKE 350.1.13.10 ity of [place] [facility] 4.2.7.2.686 Babak as [phone] [facility] [address] 2021-01-02 2021-01-02 Telephone Sy [facility] 1.2.707.474 [id number] Univers 00:00:00 00:00:00 [place] Aranda 350.1.13.10 ity of [place] [phone] Tx dical nal 059 [facility] 2021-01-02 2021-01-02 [facility] 1.2.840.114 [id number] Univers 00:00:00 00:00:00 [place] 350.1.13.10 ity of [place] [phone] [facility] nal 9 [facility] 2020-12-07 2020-12-07 Crate Opener Farnaz, Adc Lab Main [facility] 1.2.8 40.114 [id number] Univers 08:05:37 08:20:37 Visit Sy Catrinajuan Rosi 350.1.13.10 ity of [place] [phone] [facility] 353 [facility] 2020-12-07 2020-12-07 Outpatient R [facility] [id number] Univers 08:00:00 08:00:00 [place] perez o [facility] 2020-12-07 2020-12-07 Outpatient R [facility] [id number] Univers 08:00:00 08:00:00 [place] perez o [facility] 2020-12-07 2020-12-07 [facility] 1.2.568.470 [id number] Univers 00:00:00 00:00:00 [place] Aranda 350.1.13.10 ity of [place] [phone] [facility] nal [address] [place] [address] 2020-11-23 2020-11-23 Outpatient R [facility] [id number] Univers 13:37:45 23:59:00 [place] perez o [facility] 2020-11-23 2020-11-23 Outpatient R SY, [facility] [id number] Univers 13:37:45 23:59:00 [place] perez o [facility] 2020-11-14 2020-11-14 Outpatient R [facility] [id number] Univers 13:40:00 13:40:00 [place] jimenes [facility] 2020-10-12 2020-10-12 Outpatient R SY, [facility] [id number] Univers 08:00:00 08:00:00 [place] jimenes [facility] 2020-09-27 2020-09-27 Outpatient R SY, [facility] [id number] Univers 13:00:00 13:00:00 [place] jimenes [facility] 2020-09-22 2020-09-22 Outpatient R SY, [facility] [id number] Univers 09:30:00 09:30:00 [place] jimenes [facility] 2020-09-07 2020-09-07 Outpatient R SY, [facility] [id number] Univers 08:45:00 08:45:00 [place] jimenes [facility] 2020-08-19 2020-08-19 Outpatient R SY, [facility] [id number] Univers 08:45:00 08:45:00 [place] jimenes [facility] 2020-08-15 2020-08-15 Outpatient R SY, [facility] [id number] Univers 10:45:00 10:45:00 [facility] 2020-08-08 2020-08-08 Outpatient R SY, [facility] [id number] Univers 11:45:00 11:45:00 [facility] 2020-08-08 2020-08-08 Crate Opener Andre Osei [facility] ..840.114 [id number] 11:14:44 11:29:44 Visit Lab Main Rosi 350.1.13.10 [place] 4.2.7.2.686 Professio [phone] nal 353 Building 2020-08-08 2020-08-08 Orders Doctor JOHANN 1.2.840.114 [id number] 00:00:00 00:00:00 Only Unassigned, MIKE 350.1.13.10 [place] [facility] [id number] 009 2020-08-08 2020-08-08 Telephone Sy, [facility] 1.2.329.955 [id number] 00:00:00 00:00:00 Rogerzaheer [place] 350.1.13.10 [place] 4.2.7.2.686 Professio [phone] [facility] 059 [facility] 2020-07-25 2020-07-25 Telephone [facility] 1.2.188.796 [id number] 00:00:00 00:00:00 [place] 350.1.13.10 [place] 4.2.7.2.686 Professio [phone] [address] 2020-07-20 2020-07-20 Outpatient R [facility] [id number] Univers 11:45:00 11:45:00 [place] jimenes [facility] 2020-07-20 2020-07-20 Crate Opener Farnaz, [facility] 1.2.840.114 [id number] 10:37:03 10:52:03 Visit Lab Main [place] 350.1.13.10 [place] 4.2.7.2.686 Professio [phone] [address] 2020-07-20 2020-07-20 Orders Doctor JOHANN 1.2.840.114 [id number] 00:00:00 00:00:00 Only Unassigned, MIKE 350.1.13.10 [place] [facility] 4.2.7.2.686 [phone] [facility] 2020-07-20 2020-07-20 [facility] 1.2.057.814 [id number] 00:00:00 00:00:00 [place] 350.1.13.10 [place] 4.2.7.2.686 Professio [phone] [address] 2020-07-13 2020-07-13 Outpatient R [facility] [id number] Univers 10:15:00 10:15:00 [place] jimenes [facility] 2020-07-13 2020-07-13 Crate Opener Farnaz [facility] 1.2.840.114 [id number] 09:23:20 09:38:20 Visit Lab Main [place] 350.1.13.10 [place] 4.2.7.2.686 Professio [phone] [address] 2020-07-13 2020-07-13 Telephone [facility] 1.2.104.026 [id number] 00:00:00 00:00:00 Qiajuan [place] 350.1.13.10 [place] 4.2.7.2.686 Professio [phone] [address] 2020-06-19 2020-06-19 Telephone [facility] 1.2.590.160 [id number] 00:00:00 00:00:00 Qiamerzaheer [place] 350.1.13.10 [place] 4.2.7.2.686 Professio [phone] [address] 2020-06-17 2020-06-17 Crate Opener Farnaz, [facility] 1.2.840.114 [id number] 09:22:55 09:37:55 Visit Lab Main [place] 350.1.13.10 [place] 4.2.7.2.686 Professio [phone] [address] 2020-06-17 2020-06-17 Outpatient R [facility] [id number] Univers 09:30:00 09:30:00 [place] perez o [facility] 2020-06-08 2020-06-08 Telephone [facility] 12.321.115 [id number] 00:00:00 00:00:00 Rogerzaheer [place] 350.1.13.10 [place] 4.2.7.2.686 Professio [phone] [address] 2020-06-07 2020-06-07 Crate Opener Farnaz, [facility] 12.840.114 [id number] 08:57:47 09:12:47 Visit Lab Main [place] 350.1.13.10 [place] 4.2.7.2.686 Professio [phone] [address] 2020-06-07 2020-06-07 Outpatient R [facility] [id number] Univers 09:00:00 09:00:00 [place] perez o [facility] 2020-05-23 2020-05-23 Outpatient R SY, [facility] [id number] Univers 09:15:00 09:15:00 [place] hayes [facility] 2020-05-16 2020-05-16 Outpatient R [facility] [id number] Univers 11:30:00 11:30:00 [place] perez o abigail [facility] 2020-05-16 2020-05-16 Crate Opener Farnaz [facility] 1.2.840.114 [id number] 11:09:17 11:24:17 Visit Lab Main [place] 350.1.13.10 [place] 4.2.7.2.686 Professio [phone] [facility] 353 [facility] 2020-05-16 2020-05-16 Orders Doctor JOHANN 1.2.840.114 [id number] 00:00:00 00:00:00 Only Unassigned, MIKE 350.1.13.10 [place] [facility] 4.2.7.2.686 [id number] 009 2020-05-16 2020-05-16 [facility] 1.2.118.930 [id number] 00:00:00 00:00:00 Catrinamerzaheer [place] 350.1.13.10 [place] 4.2.7.2.686 Professio [phone] [facility] 059 [facility] 2020-05-11 2020-05-11 Crate Opener Farnaz [facility] 1.2.840.114 [id number] 09:25:07 09:40:07 Visit Lab Main [place] 350.1.13.10 [place] 4.2.7.2.686 Professio [phone] [facility] 353 [facility] 2020-05-11 2020-05-11 Outpatient R MCDOWELL, [facility] [id number] Univers 09:30:00 09:30:00 SENDIL ity [facility] 2020-05-11 2020-05-11 Telephone [facility] 1.2.833.184 [id number] 00:00:00 00:00:00 Catrinamerzaheer [place] 350.1.13.10 [place] 4.2.7.2.686 Professio [phone] nal [address] [address] 2020-05-11 2020-05-11 Telephone [facility] 1.2.340.226 [id number] 00:00:00 00:00:00 [place] 350.1.13.10 [place] 4.2.7.2.686 Professio [phone] [address] 2020-05-04 2020-05-04 Telephone [facility] 1.2.467.704 [id number] 00:00:00 00:00:00 [place] Aranda 350.1.13.10 [place] 4.2.7.2.686 Professio [phone] [address] 2020-05-03 2020-05-03 Outpatient R [facility] [id number] Univers 11:30:00 11:30:00 [place] perez [facility] 2020-05-03 2020-05-03 [facility] 1.2.840.114 [id number] 10:05:00 10:20:00 Visit Lab Main [place] 350.1.13.10 [place] 4.2.7.2.686 Professio [phone] [address] 2020-05-03 2020-05-03 Orders Doctor JOHANN 1.2.840.114 [id number] 00:00:00 00:00:00 Only Unassigned, MIKE 350.1.13.10 [place] [facility] 4.2.7.2.686 [id number] [id number] 2020-04-27 2020-04-27 [facility] 1.2.840.114 [id number] 08:24:03 08:39:03 Visit Lab Main [place] 350.1.13.10 [place] 4.2.7.2.686 Professio [phone] [address] 2020-04-27 2020-04-27 Outpatient R [facility] [id number] Univers 08:30:00 08:30:00 [place] perez [facility] 2020-04-27 2020-04-27 Telephone [facility] 1.2.763.402 [id number] 00:00:00 00:00:00 [place] Aranda 350.1.13.10 [place] 4.2.7.2.686 Professio [phone] nal 059 [facility] 2020-04-20 2020-04-20 Refill Sy, [facility] 1.2.840.114 [id number] 00:00:00 00:00:00 [place] Ar[place] 350.1.13.10 [place] 4.2.7.2.686 Professio [phone] [address] 2020-04-01 2020-04-01 Outpatient R IZQUIERDO, [facility] [id number] Univers 10:15:00 10:15:00 NICK ana [facility] 2020-03-29 2020-03-29 Office Sy, [facility] 1.2.840.114 [id number] 14:32:40 15:25:41 Visit [place] Ar[place] 350.1.13.10 [place] 4.2.7.2.686 Professio [phone] [address] 2020-03-29 2020-03-29 Outpatient R SY, [facility] [id number] Univers 14:40:00 14:40:00 [place] perez o [facility] 2020-03-22 2020-03-22 Outpatient R SY, [facility] [id number] Univers 15:30:00 15:30:00 [place] perez o [facility] 2020-03-15 2020-03-15 Outpatient R SY, [facility] [id number] Univers 11:15:00 11:15:00 [place] scotty o [facility] 2020-02-24 2020-02-24 Outpatient R SY, [facility] [id number] Univers 08:40:00 08:40:00 [place] scotty o [facility] 2020-02-17 2020-02-17 Outpatient R SY, [facility] [id number] Univers 09:15:00 09:15:00 [place] scotty o [facility] 2020-01-11 2020-01-11 Outpatient R SY, [facility] [id number] Univers 12:45:00 12:45:00 [place] ity o [facility] 2019-12-17 2019-12-17 Outpatient R SY, [facility] [id number] Univers 11:00:00 11:00:00 [place] ity o [facility] 2019-11-26 2019-11-26 Outpatient R SY, [facility] [id number] Univers 12:45:00 12:45:00 QIAJUAN ity o [facility] 2019-10-30 2019-10-[address] [facility] [id number] Univers 00:00:00 00:00:00 y [facility] 2019-10-20 2019-10-[address] [facility] [id number] Univers 09:30:00 09:30:00 [facility] 2019-09-30 2019-09-30 Outpatient R SY, [facility] [id number] Univers 08:30:00 08:30:00 [place] ity o [facility] 2019-09-08 2019-09-08 Outpatient R SY, [facility] [id number] Univers 15:20:00 15:20:00 [place] scotty o [facility] 2019-09-03 2019-09-03 Outpatient R SY, [facility] [id number] Univers 09:00:00 09:00:00 [place] scotty o [facility] 2019-07-24 2019-07-24 Outpatient R SY, [facility] [id number] Univers 11:45:00 11:45:00 [place] ity o [facility] 2019-06-22 2019-06-22 Outpatient R SY, [facility] [id number] Univers 13:30:00 13:30:00 QIAJUAN ity o [facility] Results This patient has no known results.
--- NOTE | 2022-05-13 19:49 | RAD REPORT ---
EXAM DESCRIPTION: CT - CTHCSPWOC - 05/13/2022 7:35 pm CLINICAL HISTORY: Trauma, head and neck injury. fall on coumadin COMPARISON: C Spine Wo Con dated 03/07/2020; Head C Spine Mpr Wo Con dated 09/12/2017; Head C Spine M pr Wo Con dated 03/31/2017; Head C Spine Mpr Wo Con dated 02/10/2017 TECHNIQUE: Axial 5 mm thick images of the head were obtained. Axial 2 mm thick images of the cervical spine were obtained with sagittal and coronal reconstruction images generated and reviewed. All CT scans are performed using dose optimization technique as appropriate and may include automated exposure control or mA/KV adjustment according to patient size. FINDINGS: CT HEAD WITHOUT CONTRAST: No acute hemorrhage, hydrocephalus or extra-axial collection is identified.No areas of brain edema or midline shift. The paranasal sinuses and mastoids are clear.The calvarium is intact. CT CERVICAL SPINE WITHOUT CONTRAST: No fracture or subluxation.No prevertebral soft tissues swelling is identified. Multilevel degenerati ve changes are present in the spine. IMPRESSION: No acute intracranial or cervical spine findings.
--- NOTE | 2022-05-13 21:03 | EDPHYS ---
Physician Documentation [facility] Name: Michelle Saavedra Age: 66 yrs Sex: Female : 1955 Arrival Date: 05/13/2022 Time: 17:34 Bed 12 Private MD: ED Physician Gab Del Real HPI: 05/13 19:08 This 66 yrs old Female presents to ER via Wheelchair with complaints of snw Laceration To Arm, Fall Injury. 19:08 The patient has a laceration related to: playing with pet dog and was scratched, it snw continues to ooze. Pt fell yesterday per report, no LOC but on warfarin for mechanical valve. The laceration(s) is(are) located on the right temporal area and left arm. Historical: - Allergies: 17:45 Morphine; ko1 - Home Meds: 17:45 Coumadin 1 mg Oral tab 1 tab once daily [Active]; ko1 - Immunization history:: Adult Immunizations up to date, Client reports having NOT received the Covid vaccine. Last tetanus immunization: < 5 years ago Pneumococcal vaccine is up to date, Flu vaccine is up to date. - Social history:: Smoking status: Patient denies any tobacco usage or history of. ROS: 19:06 Eyes: Negative for injury, pain, redness, and discharge, ENT: Negative for injury, snw pain, and discharge, Neck: Negative for injury, pain, and swelling, Cardiovascular: Negative for chest pain, palpitations, and edema, Respiratory: Negative for shortness of breath, cough, wheezing, and pleuritic chest pain, Abdomen/GI: Negative for abdominal pain, nausea, vomiting, diarrhea, and constipation, Back: Negative for injury and pain, : Negative for injury, bleeding, discharge, and swelling, MS/Extremity: Negative for injury and deformity. 19:06 Constitutional: Positive for body aches. 19:06 Skin: Positive for bleeding. 19:06 Neuro: Positive for headache, of the right temporal area. Exam: 19:04 Constitutional: This is a well developed, well nourished patient who is awake, alert, snw and in no acute distress. 19:04 Eyes: Pupils equal round and reactive to light, extra-ocular motions intact. Lids and lashes normal. Conjunctiva and sclera are non-icteric and not injected. Cornea within normal limits. Periorbital areas with no swelling, redness, or edema. ENT: Nares patent. No nasal discharge, no septal abnormalities noted. Tympanic membranes are normal and external auditory canals are clear. Oropharynx with no redness, swelling, or masses, exudates, or evidence of obstruction, uvula midline. Mucous membranes moist. Neck: Trachea midline, no thyromegaly or masses palpated, and no cervical lymphadenopathy. Supple, full range of motion without nuchal rigidity, or vertebral point tenderness. No Meningismus. Chest/axilla: Normal chest wall appearance and motion. Nontender with no deformity. No lesions are appreciated. 19:04 Respiratory: Lungs have equal breath sounds bilaterally, clear to auscultation and percussion. No rales, rhonchi or wheezes noted. No increased work of breathing, no retractions or nasal flaring. Abdomen/GI: Soft, non-tender, with normal bowel sounds. No distension or tympany. No guarding or rebound. No evidence of tenderness throughout. Back: No spinal tenderness. No costovertebral tenderness. Full range of motion. 19:04 Head/face: Noted is tenderness, that is moderate, of the right temporal area. 19:04 Cardiovascular: Rate: normal, Rhythm: regular, Pulses: no pulse deficits are appreciated, Heart sounds: murmur, grade 4 over 6, mechanical heart valve, takes coumadin, last INR 2.6. 19:04 Skin: Appearance: normal except for affected area, injury, abrasion(s), very small abrasion noted, per dog claws about a week ago but area continues to ooze with little provocation. Vital Signs: 17:43 BP 143 / 53; Pulse 58; Resp 18; Temp 98; Pulse Ox 97% ; Weight 45.81 kg; Height 5 ft. 3 ko1 in. (160.02 cm); 20:12 BP 154 / 61; Pulse 61; Resp 16; Pulse Ox 99% ; Pain 7/10; mb9 21:24 BP 159 / 66; Pulse 60; Resp 15; Pulse Ox 98% ; vc1 17:43 Body Mass Index 17.89 (45.81 kg, 160.02 cm) ko1 Gray Coma Score: 19:04 Eye Response: spontaneous(4). Verbal Response: oriented(5). Motor Response: obeys snw commands(6). Total: 15. MDM: 17:52 Patient medically screened. snw 19:07 Differential diagnosis: superficial laceration, CHI, intracerebral or subdural snw hemorrhage. Data reviewed: vital signs, nurses notes. 19:30 ED course: Pt to CT via W/C. snw 05/13 19:02 Order name: CT Head C Spine; Complete Time: 20:28 snw 05/13 19:02 Order name: Wound Care: xeroform and mild pressure; Complete Time: 20:24 snw Administered Medications: 21:20 Drug: fentaNYL (PF) 25 mcg Route: IM; Site: right deltoid; vc1 Disposition Summary: 05/13/22 21:02 Discharge Ordered Location: Home snw Condition: Stable snw Diagnosis - Fall on same level from slipping, tripping and stumbling with subsequent striking snw against object - Unspecified injury of head, initial encounter snw - Puncture wound without foreign body of forearm snw Followup: snw - With: Emergency Department - When: As needed - Reason: Worsening of condition Followup: snw - With: Private Physician - When: 2 - 3 days - Reason: Recheck today's complaints, Continuance of care, Re-evaluation by your physician Discharge Instructions: - Discharge Summary Sheet snw - Delayed Wound Closure snw - Head Injury, Adult snw - Fall Prevention in the Home, Adult snw - Wound Care, Adult snw Forms: - Medication Reconciliation Form snw - Thank You Letter snw - Antibiotic Education snw - Prescription Opioid Use snw Signatures: Dispatcher [employer] EDMS Micki Mejia FNP-C [employer] MACHINE OPERATOR-Csnw Alena Camilo RN RN vc1 Gay Castro, RN RN ko1
--- NOTE | 2022-05-13 21:03 | ER ---
Nurse's Notes [facility] Name: Michelle Saavedra Age: 66 yrs Sex: Female : 1955 Arrival Date: 05/13/2022 Time: 17:34 Bed 12 Private MD: Diagnosis: Fall on same level from slipping, tripping and stumbling with subsequent striking against object;Unspecified injury of head, initial encounter;Puncture wound without foreign body of forearm Presentation: 05/13 17:43 Chief complaint: Patient states: dog scratched her arm about 3 days ago and it wont ko1 stop bleeding. She is on blood thinners. Coronavirus screen: At this time, the client does not indicate any symptoms associated with coronavirus-19. Ebola Screen: No symptoms or risks identified at this time. Complicating Factors: scratch from dog. Initial Sepsis Screen: Does the patient meet any 2 criteria? No. Patient's initial sepsis screen is negative. Does the patient have a suspected source of infection? No. Patient's initial sepsis screen is negative. Risk Assessment: Do you want to hurt yourself or someone else? Patient reports no desire to harm self or others. Onset of symptoms was May 13, 2022. 17:43 Method Of Arrival: Wheelchair ko1 17:43 Acuity: JAKUB 3 ko1 Triage Assessment: 17:45 General: Appears in no apparent distress. comfortable, Behavior is calm, cooperative, ko1 appropriate for age. Pain: Denies pain. Injury Description: Laceration sustained to dorsal aspect of left forearm. Historical: - Allergies: 17:45 Morphine; ko1 - Home Meds: 17:45 Coumadin 1 mg Oral tab 1 tab once daily [Active]; ko1 - Immunization history:: Adult Immunizations up to date, Client reports having NOT received the Covid vaccine. Last tetanus immunization: < 5 years ago Pneumococcal vaccine is up to date, Flu vaccine is up to date. - Social history:: Smoking status: Patient denies any tobacco usage or history of. Screenin:45 [facility] ED Fall Risk Assessment (Adult) History of falling in the last 3 months, mb9 including since admission No falls in past 3 months (0 pts) Confusion or Disorientation No (0 pts) Intoxicated or Sedated No (0 pts) Impaired Gait No (0 pts) Mobility Assist Device Used No (0 pt) Altered Elimination No (0 pt) Score/Fall Risk Level 0 - 2 = Low Risk Oriented to surroundings, Maintained a safe environment, Educated pt \T\ family on fall prevention, incl call for assistance when getting out of bed. Abuse screen: Denies threats or abuse. Nutritional screening: No deficits noted. Tuberculosis screening: No symptoms or risk factors identified. Assessment: 19:36 Reassessment: pt brought back to ER 12. mb9 19:45 General: Appears comfortable, Behavior is calm, cooperative, appropriate for age. Pain: mb9 Complains of pain in right temporal area and left arm Pain currently is 7 out of 10 on a pain scale. Quality of pain is described as aching. Neuro: Level of Consciousness is awake, alert, obeys commands, Oriented to person, place, time, situation, Appropriate for age. 19:45 Cardiovascular: Capillary refill < 3 seconds is brisk Patient's skin is warm and dry. mb9 Respiratory: Airway is patent Respiratory effort is even, unlabored, Respiratory pattern is regular, symmetrical. Derm: Wound noted dorsal aspect of left forearm no active bleeding noted. Musculoskeletal: Range of motion: intact in all extremities. 21:24 Reassessment: No changes from previously documented assessment. Patient and/or family vc1 updated on plan of care and expected duration. Pain level reassessed. 21:25 Injury Description: Laceration is jagged, superficial, bleeding moderately. vc1 21:25 Reassessment: waiting on shot time before patient leaves ER. vc1 21:42 Reassessment: No changes from previously documented assessment. Patient and/or family mb9 updated on plan of care and expected duration. Pain level reassessed. Patient is alert, oriented x 3, equal unlabored respirations, skin warm/dry/pink. Patient states feeling better. Patient states symptoms have improved. Vital Signs: 17:43 BP 143 / 53; Pulse 58; Resp 18; Temp 98; Pulse Ox 97% ; Weight 45.81 kg; Height 5 ft. 3 ko1 in. (160.02 cm); 20:12 BP 154 / 61; Pulse 61; Resp 16; Pulse Ox 99% ; Pain 7/10; mb9 21:24 BP 159 / 66; Pulse 60; Resp 15; Pulse Ox 98% ; vc1 17:43 Body Mass Index 17.89 (45.81 kg, 160.02 cm) ko1 Gray Coma Score: 19:04 Eye Response: spontaneous(4). Verbal Response: oriented(5). Motor Response: obeys snw commands(6). Total: 15. ED Course: 17:34 Patient arrived in ED. rg4 17:45 Triage completed. ko1 17:45 Arm band placed on left wrist. Patient placed in waiting room, Patient notified of wait ko1 time. Bandage applied. Pressure dressing applied. 17:51 Micki Mejia FNP-C [facility]. snw 17:51 Gab Del Real MD is Attending Physician. snw 19:36 Bed in low position. Call light in reach. Side rails up X 1. Client placed on mb9 continuous cardiac and pulse oximetry monitoring. NIBP monitoring applied. 19:37 CT Head C Spine In Process Unspecified. EDMS 20:14 No provider procedures requiring assistance completed. Patient did not have IV access mb9 during this emergency room visit. Administered Medications: 21:20 Drug: fentaNYL (PF) 25 mcg Route: IM; Site: right deltoid; vc1 Medication: 20:14 VIS not applicable for this client. mb9 Outcome: 21:02 Discharge ordered by . snw 21:25 Condition: good vc1 21:25 Discharge instructions given to patient, Instructed on discharge instructions, follow up and referral plans. medication usage, Demonstrated understanding of instructions, follow-up care. 21:42 Patient left the ED. mb9 Signatures: Dispatcher [employer] EDMS Micki Mejia FNP-C FNP-Beulah Koenig rg4 Alena Camilo RN RN vc1 Gay Castro, RN RN ko1 Kathrin Lund RN RN mb9
[2022-05-13] MEDS ORDERED: FENTANYL CITR 100 MCG/2 ML ONE (21:19)
[2022-05-13 22:21] VITALS: TEMP 98
[2022-05-13 22:24] VITALS: BP 159/66; O2SAT 98
== END 2022-05-13 21:42 | disposition home or self-care (01) ==
LOC: ER 17:30
DX: S51.831A Puncture wound without foreign body of right forearm, initial encounter (principal); S09.90XA Unspecified injury of head, initial encounter; W01.10XA Fall on same level from slipping, tripping and stumbling with subsequent striking against unspecified object, initial encounter; Z88.5 Allergy status to narcotic agent; Z79.01 Long term (current) use of anticoagulants
CPT/HCPCS: 70450; 72125; J3010; 96372; 99283

== ENCOUNTER 2022-05-17 21:05 | Inpatient (IN) | payer OTHER ==
--- OUTSIDE RECORDS SUMMARY | 2022-05-17 21:14 | XMS REPORT | Continuity of Care Document ---
:1955 Author Organization [facility] t Address [address] [place] [address] Care Team Providers Name Role Phone Saurabh Dobson Primary Care Physician REBECA HODGE Attending Clinician Unavailable REBECA HODGE Attending Clinician Unavailable Saurabh Dobson Attending Clinician Unavailable WAYNE RABAGO Attending Clinician Unavailable JAMAICA POMPA Attending Clinician Unavailable Wayne Rabago MD Attending Clinician Pob, [facility] Main Attending Clinician Unavailable Jamaica Pompa MD Attending Clinician Doctor Unassigned, [place] Attending Clinician Unavailable 1, [facility] Attending [...] Number Effective Date Expiration Date S alfonso [facility] DUAL [id number] 2020 00:00:00 COMP HMO D SNP [facility] [id number] 2013 00:00:00 PLUS Problems Condition Condition Condition Status Onset Resolution Last Treating Co mments Source Name Details Category Date Date Treatment Clinician Date Atrial Atrial Disease Active Univers fibrillati fibrillati 8-11 it y of on on 00:00: [place] [address] Medical Branch E44.0 E44.0 Disease Active 2020-04 Univers Moderate Moderate 1-19 ity of protein protein 00:00: [place] calorie calorie 00 Medical malnutriti malnutriti Br anch on on Other Other Disease Active 2020-04 Univers chest pain chest pain 1-19 it y of 00:00: [place] [address] Medical Branch Chest pain Chest pain Disease Active 2020-04 U nivers 1-17 ity of 00:00: [place] [address] Medical Branch Elevated Elevated Disease Active 2020-04 [...] 8-20 it y of emia emia 00:00: [place] [facility] Essential Essential Disease Active Uni vers hypertensi hypertensi 8-20 it y of on on 00:00: [place] [facility] Anticoagul Anticoagul Disease Active U nivers ated ated 8-20 ity of 00:00: [place] [facility] Coronary Coronary Disease Active Unive rs artery artery 8-20 ity of disease disease 00:00: [place] involving involving 00 Medi tyrone [place] Branch coronary coronary artery of artery of [place] 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 2-20 ity of disease disease 00:00: [place] involving involving 00 Medi tyrone [place] Branch heart heart without without angina angina pectoris, pectoris, unspecifie unspecifie d vessel d vessel or lesion or lesion type type Atrial Atrial Disease Active Univers flutter flutter 4-03 ity of 00:00: [place] 00 Medical Branch Aortic Aortic Disease Active 2015-04 Univers valve valve 0-28 ity of replaced replaced 00:00: [place] [Z95.2] [Z95.2] 00 Medical Branch Chest pain Chest pain Disease Active 2015-04 U nivers with high with high 0-22 ity of risk for risk for 00:00: [place] cardiac cardiac 00 Medical etiology etiology Branch Allergies, Adverse Reactions, Alerts Allergy Allergy Status Severity Reaction(s) Onset Inactive Treating Comm ents Source Name Type Date Date Clinician Morphine Propensi Active Shortness of Univers ty to Breath 1-15 ity of adverse 00:00: [place] reaction 00 Medical s to Branch drug MORPHINE DRUG Active High SOB 2006- Univers INGREDI 1-15 ity of 00:00: [place] 00 Medical Branch Social History Social Habit Start Date Stop Date Quantity Comments Source Exposure to 2022-04-30 2022-05-10 Not sure University of SARS-CoV-2 00:00:00 11:03:00 [place] [facility] (event) Branch Alcohol intake 2022-05-10 2022-05-10 Current drinker Unive rsity of 00:00:00 00:00:00 of alcohol [facility] (finding) Branch Tobacco use and 2017-06-04 2017-06-04 Smokeless tobacco Un iversity of exposure 00:00:00 00:00:00 non-user [facility] Sex Assigned At [birth year] Universit y of 00:00:00 00:00:00 [facility] Smoking Status Start Date Stop Date Source Never smoked tobacco [facility] Medications Ordered Filled Start Stop Current Ordering Indication Dosage Frequency Signature Comments Components Source Medication Medication Date Date Medication? Clinician (SIG) Name Name metoprolol 2022- Yes [id number] 25mg Take 1 Univers succinate -08 08-27 tablet by ity of XL (TOPROL 00:00: 04:59 mouth in [place] XL) 25 mg 00 :00 the Medical 24 hr morning Branch tablet for 90 days. metoprolol 2022- Yes [id number] 25mg Take 1 Univers succinate -08 08-27 [...] the Medical morning. Branch metoprolol 2021-04 Yes [id number] 25mg Take 1 U nivers tartrate 25 2-19 tablet by ity of mg tablet 00:00: [place] the Medical morning Branch and 1 tablet in the evening. ezetimibe 2021-04 Yes 10mg Take 1 Univer s (ZETIA) 10 2-19 tablet by ity of mg tablet 00:00: [place] 00 the Medical morning. Branch metoprolol 2021-04 Yes [id number] 25mg Take 1 U nivers tartrate 25 2-19 tablet by ity of mg tablet 00:00: [place] 00 the Medical morning Branch and 1 tablet in the evening. ezetimibe 2021-04 Yes 10mg Take 1 Univer s (ZETIA) 10 2-19 tablet by ity of mg tablet 00:00: [place] 00 the Medical morning. Branch metoprolol 2021-04 Yes [id number] 25mg Take 1 U nivers tartrate 25 2-19 tablet by ity of mg tablet 00:00: [place] 00 the Medical morning Branch and 1 tablet in the evening. ezetimibe 2021-04 Yes 10mg Take 1 Univer s (ZETIA) 10 2-19 tablet by ity of mg tablet 00:00: [place] 00 the Medical morning. Branch metoprolol 2021-04 Yes [id number] 25mg Take 1 U nivers tartrate 25 2-19 tablet by ity of mg tablet 00:00: [place] 00 the Medical morning Branch and 1 tablet in the evening. ezetimibe 2021-04 Yes 10mg Take 1 Univer s (ZETIA) 10 2-19 tablet by ity of mg tablet 00:00: [place] 00 the Medical morning. Branch metoprolol 2021-04 Yes [id number] 25mg Take 1 U nivers tartrate 25 2-19 tablet by ity of mg tablet 00:00: [place] 00 the Medical morning Branch and 1 tablet in the evening. ezetimibe 2021-04 Yes 10mg Take 1 Univer s (ZETIA) 10 2-19 tablet by ity of mg tablet 00:00: [place] 00 the Medical morning. Branch metoprolol 2021-04 Yes [id number] 25mg Take 1 U nivers tartrate 25 2-19 tablet by ity of mg tablet 00:00: [place] 00 the Medical morning Branch and 1 tablet in the evening. ezetimibe 2021-04 Yes 10mg Take 1 Univer s (ZETIA) 10 2-19 tablet by ity of mg tablet 00:00: [place] 00 the Medical morning. Branch metoprolol 2021-04 Yes [id number] 25mg Take 1 U nivers tartrate 25 [...] the Medical morning. Branch metoprolol 2021-04- No [id number] 25mg Take 1 Univers tartrate 25 2-03 05- tablet by it y of mg tablet 00:00: 00:00 mouth in [place] 00 :00 the Medical morning Branch and 1 tablet in the evening. metoprolol 2021-04- No [id number] 25mg Take 1 Univers tartrate 25 -03 05- tablet by it y of mg tablet 00:00: 00:00 mouth in [place] 00 :00 the Medical morning Branch and 1 tablet in the evening. warfarin 2021-04 Yes [id number] 1mg Take 1 Univers mg tablet 2-01 tablet by ity o f 00:00: mouth [place] 00 every Medical evening. Branch Alternate take 1mg x3 days, then 2mg x 4 days warfarin 2021-04 Yes [id number] 1mg Take 1 Univers mg tablet 2-01 tablet by ity o f 00:00: mouth [place] 00 every Medical evening. Branch Alternate take 1mg x3 days, then 2mg x 4 days dofetilide 2021-04 Yes [id number] 125ug Take 1 Univers 125 mcg 2-01 capsule by ity of capsule 00:00: mouth [place] 00 every 12 Medical (twelve) Branch hours. warfarin 2021-04 Yes [id number] 1mg Take 1 Univers mg tablet 2-01 tablet by ity o f 00:00: mouth [place] 00 every Medical evening. Branch Alternate take 1mg x3 days, then 2mg x 4 days dofetilide 2021-04 Yes [id number] 125ug Take 1 Univers 125 mcg 2-01 capsule by ity of capsule 00:00: mouth [place] 00 every 12 Medical (twelve) Branch hours. warfarin 2021-04 Yes [id number] 1mg Take 1 Univers mg tablet 2-01 tablet by ity o f 00:00: mouth [place] 00 every Medical evening. Branch Alternate take 1mg x3 days, then 2mg x 4 days dofetilide 2021-04 Yes [id number] 125ug Take 1 Univers 125 mcg 2-01 capsule by ity of capsule 00:00: mouth [place] 00 every 12 Medical (twelve) Branch hours. warfarin 2021-04 Yes [id number] 1mg Take 1 Univers mg tablet 2-01 tablet by ity o f 00:00: mouth [place] 00 every Medical evening. Branch Alternate take 1mg x3 days, then 2mg x 4 days dofetilide 2021-04 Yes [id number] 125ug Take 1 Univers 125 mcg 2-01 capsule by ity of capsule 00:00: mouth [place] 00 every 12 Medical (twelve) Branch hours. warfarin 2021-04 Yes [id number] 1mg Take 1 Univers mg tablet 2-01 tablet by ity o f 00:00: mouth [place] 00 every Medical evening. Branch Alternate take 1mg x3 days, then 2mg x 4 days dofetilide 2021-04 Yes [id number] 125ug Take 1 Univers 125 mcg 2-01 capsule by ity of capsule 00:00: mouth [place] 00 every 12 Medical (twelve) Branch hours. warfarin 2021-04 Yes [id number] 1mg Take 1 Univers mg tablet 2-01 tablet by ity o f 00:00: mouth [place] 00 every Medical evening. Branch Alternate take 1mg x3 days, then 2mg x 4 days dofetilide 2021-04 Yes [id number] 125ug Take 1 Univers 125 mcg 2-01 capsule by ity of capsule 00:00: mouth [place] 00 every 12 Medical (twelve) Branch hours. warfarin 2021-04 Yes [id number] 1mg Take 1 Univers mg tablet 2-01 tablet by ity o f 00:00: mouth [place] 00 every Medical evening. Branch Alternate take 1mg x3 days, then 2mg x 4 days dofetilide 2021-04 Yes [id number] 125ug Take 1 Univers 125 mcg 2-01 capsule by ity of capsule 00:00: mouth [place] 00 every 12 Medical (twelve) Branch hours. warfarin 2021-04 Yes [id number] 1mg Take 1 Univers mg tablet 2-01 tablet by ity o f 00:00: mouth [place] 00 every Medical evening. Branch Alternate take 1mg x3 days, then 2mg x 4 days dofetilide 2021-04 Yes [id number] 125ug Take 1 Univers 125 mcg 2-01 capsule by ity of capsule 00:00: mouth [place] 00 every 12 Medical (twelve) Branch hours. warfarin 2021-04 Yes [id number] 1mg Take 1 Univers mg tablet 2-01 tablet by ity o f 00:00: mouth [place] 00 every Medical evening. Branch Alternate take 1mg x3 days, then 2mg x 4 days dofetilide 2021-04 Yes [id number] 125ug Take 1 Univers 125 mcg 2-01 capsule by ity of capsule 00:00: mouth [place] 00 every 12 Medical (twelve) Branch hours. warfarin 2021-04 Yes [id number] 1mg Take 1 Univers mg tablet 2-01 tablet by ity o f 00:00: mouth [place] 00 every Medical evening. Branch Alternate take 1mg x3 days, then 2mg x 4 days dofetilide 2021-04 Yes [id number] 125ug Take 1 Univers 125 mcg 2-01 capsule by ity of capsule 00:00: mouth [place] 00 every 12 Medical (twelve) Branch hours. warfarin 2021-04 Yes [id number] 1mg Take 1 Univers mg tablet 2-01 tablet by ity o f 00:00: mouth [place] 00 every Medical evening. Branch Alternate take 1mg x3 days, then 2mg x 4 days dofetilide 2021-04 Yes [id number] 125ug Take 1 Univers 125 mcg 2-01 capsule by ity of capsule 00:00: mouth [place] 00 every 12 Medical (twelve) Branch hours. warfarin 2021-04 Yes [id number] 1mg Take 1 Univers mg tablet 1-01 tablet by ity o f 00:00: mouth [place] 00 every Medical evening. Branch Alternate take 1mg x4 days, then 2mg x 3 days warfarin 2021-04 Yes [id number] 1mg Take 1 Univers mg tablet 1-01 tablet by ity o f 00:00: mouth [place] 00 every Medical evening. Branch Alternate take 1mg x4 days, then 2mg x 3 days warfarin 2021-04 Yes [id number] 1mg Take 1 Univers mg tablet 1-01 tablet by ity o f 00:00: mouth [place] 00 every Medical evening. Branch Alternate take 1mg x4 days, then 2mg x 3 days warfarin 2021-04 Yes [id number] 1mg Take 1 Univers mg tablet 1-01 tablet by ity o f 00:00: mouth [place] 00 every Medical evening. Branch Alternate take 1mg x4 days, then 2mg x 3 days warfarin 2021-04 Yes [id number] 1mg Take 1 Univers mg tablet 1-01 tablet by ity o f 00:00: mouth [place] 00 every Medical evening. Branch Alternate take 1mg x4 days, then 2mg x 3 days warfarin 2021-04 Yes [id number] 1mg Take 1 Univers mg tablet 1-01 tablet by ity o f 00:00: mouth [place] 00 every Medical evening. Branch Alternate take 1mg x4 days, then 2mg x 3 days warfarin 2021-04 Yes [id number] 1mg Take 1 Univers mg tablet 1-01 tablet by ity o f 00:00: mouth [place] 00 every Medical evening. Branch Alternate take 1mg x4 days, then 2mg x 3 days warfarin 2021-04 Yes [id number] 1mg Take 1 Univers mg tablet 1- tablet by ity o f 00:00: mouth [place] 00 every Medical evening. Branch Alternate take 1mg x4 days, then 2mg x 3 days warfarin 2021-04 Yes [id number] 1mg Take 1 Univers mg tablet 1-01 tablet by ity o f 00:00: mouth [place] 00 every Medical evening. Branch Alternate take 1mg x4 days, then 2mg x 3 days warfarin 2021-04 Yes [id number] 1mg Take 1 Univers mg tablet 1-01 tablet by ity o f 00:00: mouth [place] 00 every Medical evening. Branch Alternate take 1mg x4 days, then 2mg x 3 days warfarin 2021-04 Yes [id number] 1mg Take 1 Univers mg tablet 1-01 tablet by ity o f 00:00: mouth [place] 00 every Medical evening. Branch Alternate take 1mg x4 days, then 2mg x 3 days warfarin 2021-04- No [id number] 1mg Take 1 Univers mg tablet 1- 12- tablet by ity of 00:00: 00:00 mouth [place] 00 :00 every Medical evening. Branch Alternate take 1mg x4 days, then 2mg x 3 days warfarin 2021-04 Yes [id number] 1mg Take 1 Univers mg tablet 0-17 tablet by ity o f 00:00: mouth [place] 00 every Medical evening. Branch Alternate take 1mg x4 days, then 2mg x 3 days warfarin 1 2021-04- No [id number] 1mg Take 1 Univers mg tablet 0-17 [...] the Medical morning. Branch warfarin 1 Yes [id number] 1mg Take 1 Univers mg tablet 8-24 tablet by ity o f 00:00: mouth [place] 00 every Medical evening. Branch Alternate take 1mg x2days, then 2mg x 1 day warfarin Yes [id number] 1mg Take 1 Univers mg tablet 8-24 tablet by ity o f 00:00: mouth [place] 00 every Medical evening. Branch Alternate take 1mg x2days, then 2mg x 1 day warfarin 1 Yes [id number] 1mg Take 1 Univers mg tablet 8-24 tablet by ity o f 00:00: mouth [place] 00 every Medical evening. Branch Alternate take 1mg x2days, then 2mg x 1 day warfarin 1 Yes [id number] 1mg Take 1 Univers mg tablet 8-24 tablet by ity o f 00:00: mouth [place] 00 every Medical evening. Branch Alternate take 1mg x2days, then 2mg x 1 day warfarin Yes [id number] 1mg Take 1 Univers mg tablet 8-24 tablet by ity o f 00:00: mouth [place] 00 every Medical evening. Branch Alternate take 1mg x2days, then 2mg x 1 day warfarin 1 Yes [id number] 1mg Take 1 Univers mg tablet 8-24 tablet by ity o f 00:00: mouth [place] 00 every Medical evening. Branch Alternate take 1mg x2days, then 2mg x 1 day warfarin 1 Yes [id number] 1mg Take 1 Univers mg tablet 8-24 tablet by ity o f 00:00: mouth [place] 00 every Medical evening. Branch Alternate take 1mg x2days, then 2mg x 1 day warfarin 1 Yes [id number] 1mg Take 1 Univers mg tablet 8-24 tablet by ity o f 00:00: mouth [place] 00 every Medical evening. Branch Alternate take 1mg x2days, then 2mg x 1 day warfarin Yes [id number] 1mg Take 1 Univers mg tablet 8-24 tablet by ity o f 00:00: mouth [place] 00 every Medical evening. Branch Alternate take 1mg x2days, then 2mg x 1 day warfarin 1 Yes [id number] 1mg Take 1 Univers mg tablet 8-24 tablet by ity o f 00:00: mouth [place] 00 every Medical evening. Branch Alternate take 1mg x2days, then 2mg x 1 day warfarin Yes [id number] 1mg Take 1 Univers mg tablet 8-24 tablet by ity o f 00:00: mouth [place] 00 every Medical evening. Branch Alternate take 1mg x2days, then 2mg x 1 day warfarin 1 Yes [id number] 1mg Take 1 Univers mg tablet 8-24 tablet by ity o f 00:00: mouth [place] 00 every Medical evening. Branch Alternate take 1mg x2days, then 2mg x 1 day warfarin 1 Yes [id number] 1mg Take 1 Univers mg tablet 8-24 tablet by ity o f 00:00: mouth [place] 00 every Medical evening. Branch Alternate take 1mg x2days, then 2mg x 1 day warfarin 1 2021- No [id number] 1mg Take 1 Univers mg tablet 8-24 10-17 tablet by ity of 00:00: 00:00 mouth [place] 00 :00 every Medical evening. Branch Alternate take 1mg x2days, then 2mg x 1 day warfarin 1 2021- No [id number] 2mg Take 2 Univers mg tablet 8-23 08-24 tablets by ity of 00:00: 00:00 mouth [place] 00 :00 every Medical evening. [place] dofetilide 2021- No [id number] 125ug Take 1 Univers 125 mcg 8-19 08-27 capsule by ity o f capsule 00:00: 04:59 mouth [place] 00 :00 every 12 Medical (twelve) Branch hours for 7 days. dofetilide 2021- No [id number] 125ug Take 1 Univers 125 mcg 8-19 08-27 capsule by ity o f capsule 00:00: 04:59 mouth [place] 00 :00 every 12 Medical (twelve) Branch hours for 7 days. dofetilide 2021- No [id number] 125ug Take 1 Univers 125 mcg 8-17 11-16 capsule by ity o f capsule 00:00: 05:59 mouth [place] 00 :00 every 12 Medical (twelve) Branch hours for 90 days. dofetilide 2021- No [id number] 125ug Take 1 Univers 125 mcg 8-17 11-16 capsule by ity o f capsule 00:00: 05:59 mouth [place] 00 :00 every 12 Medical (twelve) Branch hours for 90 days. dofetilide 2021- No [id number] 125ug Take 1 Univers 125 mcg 8-17 11-16 capsule by ity o f capsule 00:00: 05:59 mouth [place] 00 :00 every 12 Medical (twelve) Branch hours for 90 days. dofetilide 2021- No [id number] 125ug Take 1 Univers 125 mcg 8-17 11-16 capsule by ity o f capsule 00:00: 05:59 mouth [place] 00 :00 every 12 Medical (twelve) Branch hours for 90 days. dofetilide 2021- No [id number] 125ug Take 1 Univers 125 mcg 8-17 11-16 capsule by ity o f capsule 00:00: 05:59 mouth [place] 00 :00 every 12 Medical (twelve) Branch hours for 90 days. dofetilide 2021- No [id number] 125ug Take 1 Univers 125 mcg 8-17 11-16 capsule by ity o f capsule 00:00: 05:59 mouth [place] 00 :00 every 12 Medical (twelve) Branch hours for 90 days. dofetilide 2021- No [id number] 125ug Take 1 Univers 125 mcg 8-17 11-16 capsule by ity o f capsule 00:00: 05:59 mouth [place] 00 :00 every 12 Medical (twelve) Branch hours for 90 days. dofetilide 2021- No [id number] 125ug Take 1 Univers 125 mcg 8-17 11-16 capsule by ity o f capsule 00:00: 05:59 mouth [place] 00 :00 every 12 Medical (twelve) Branch hours for 90 days. dofetilide 2- No [id number] 125ug Take 1 Univers 125 mcg 8-17 11-16 capsule by ity o f capsule 00:00: 05:59 mouth [place] 00 :00 every 12 Medical (twelve) Branch hours for 90 days. dofetilide 2021- No [id number] 125ug Take 1 Univers 125 mcg 8-17 11-16 capsule by ity o f capsule 00:00: 05:59 mouth [place] 00 :00 every 12 Medical (twelve) Branch hours for 90 days. dofetilide 2021- No [id number] 125ug Take 1 Univers 125 mcg 8-17 11-16 capsule by ity o f capsule 00:00: 05:59 mouth [place] 00 :00 every 12 Medical (twelve) Branch hours for 90 days. dofetilide 2021- No [id number] 125ug Take 1 Univers 125 mcg 8-17 11-16 capsule by ity o f capsule 00:00: 05:59 mouth [place] 00 :00 every 12 Medical (twelve) Branch hours for 90 days. dofetilide 2021- No [id number] 125ug Take 1 Univers 125 mcg 8-17 11-16 capsule by ity o f capsule 00:00: 05:59 mouth [place] 00 :00 every 12 Medical (twelve) Branch hours for 90 days. dofetilide 2021- No [id number] 125ug Take 1 Univers 125 mcg 8-17 11-16 capsule by ity o f capsule 00:00: 05:59 mouth [place] 00 :00 every 12 Medical (twelve) Branch hours for 90 days. dofetilide 2021- No [id number] 125ug Take 1 Univers 125 mcg 8-17 11-16 capsule by ity o f capsule 00:00: 05:59 mouth [place] 00 :00 every 12 Medical (twelve) Branch hours for 90 days. dofetilide 2- No [id number] 125ug Take 1 Univers 125 mcg 8-17 11-16 capsule by ity o f capsule 00:00: 05:59 mouth [place] 00 :00 every 12 Medical (twelve) Branch hours for 90 days. dofetilide 2021- No [id number] 125ug Take 1 Univers 125 mcg 8-17 11-16 capsule by ity o f capsule 00:00: 05:59 mouth [place] 00 :00 every 12 Medical (twelve) Branch hours for 90 days. dofetilide 2021- No [id number] 125ug Take 1 Univers 125 mcg 8-17 11-16 capsule by ity o f capsule 00:00: 05:59 mouth [place] 00 :00 every 12 Medical (twelve) Branch hours for 90 days. dofetilide 2021- No [id number] 125ug Take 1 Univers 125 mcg 8-17 11-16 capsule by ity o f capsule 00:00: 05:59 mouth [place] 00 :00 every 12 Medical (twelve) Branch hours for 90 days. dofetilide 2021- No [id number] 125ug Take 1 Univers 125 mcg 8-17 11-16 capsule by ity o f capsule 00:00: 05:59 mouth [place] 00 :00 every 12 Medical (twelve) Branch hours for 90 days. atorvastati Yes 80mg Take 1 Univ ers n 80 mg 7-12 tablet by ity of tablet 00:00: mouth at [place] [address] bedtime. Medical Branch atorvastati Yes 80mg Take 1 Univ ers n 80 mg 7-12 tablet by ity of tablet 00:00: mouth at [place] [address] bedtime. Medical Branch atorvastati 0 Yes 80mg Take 1 Univ ers n 80 mg 7-12 tablet by ity of tablet 00:00: mouth at [place] [address] bedtime. Medical Branch atorvastati 0 Yes 80mg Take 1 Univ ers n 80 mg 7-12 tablet by ity of tablet 00:00: mouth at [place] [address] bedtime. Medical Branch atorvastati 0 Yes 80mg Take 1 Univ ers n 80 mg 7-12 tablet by ity of tablet 00:00: mouth at [place] [address] bedtime. Medical Branch atorvastati 0 Yes 80mg Take 1 Univ ers n 80 mg 7-12 tablet by ity of tablet 00:00: mouth at [place] [address] bedtime. Medical Branch atorvastati 2-0 Yes 80mg Take 1 Univ ers n 80 mg 7-12 tablet by ity of tablet 00:00: mouth at [place] [address] bedtime. Medical Branch atorvastati 2-0 Yes 80mg Take 1 Univ ers n 80 mg 7-12 tablet by ity of tablet 00:00: mouth at [place] bedtime. Medical Branch atorvastati 2-0 Yes 80mg Take 1 Univ ers n 80 mg 7-12 tablet by ity of tablet 00:00: mouth at [place] bedtime. Medical Branch atorvastati 2-0 Yes 80mg Take 1 Univ ers n 80 mg 7-12 tablet by ity of tablet 00:00: mouth at [place] bedtime. Medical Branch atorvastati 2-0 Yes 80mg Take 1 Univ ers n 80 mg 7-12 tablet by ity of tablet 00:00: mouth at [place] [address] bedtime. Medical Branch atorvastati 2-0 Yes 80mg Take 1 Univ ers n 80 mg 7-12 tablet by ity of tablet 00:00: mouth at [place] [address] bedtime. Medical Branch atorvastati 2-0 Yes 80mg Take 1 Univ ers n 80 mg 7-12 tablet by ity of tablet 00:00: mouth at [place] [address] bedtime. Medical Branch atorvastati 2-0 Yes 80mg Take 1 Univ ers n 80 mg 7-12 tablet by ity of tablet 00:00: mouth at [place] [address] bedtime. Medical Branch atorvastati 2-0 Yes 80mg Take 1 Univ ers n 80 mg 7-12 tablet by ity of tablet 00:00: mouth at [place] [address] bedtime. Medical Branch atorvastati 2-0 Yes 80mg Take 1 Univ ers n 80 mg 7-12 tablet by ity of tablet 00:00: mouth at [place] [address] bedtime. Medical Branch atorvastati 2-0 Yes 80mg Take 1 Univ ers n 80 mg 7-12 tablet by ity of tablet 00:00: mouth at [place] [address] bedtime. Medical Branch atorvastati 2022-0 Yes 80mg Take 1 Univ ers n 80 mg 7-12 tablet by ity of tablet 00:00: mouth at [place] [address] bedtime. Medical Branch atorvastati 2022-0 Yes 80mg Take 1 Univ ers n 80 mg 7-12 tablet by ity of tablet 00:00: mouth at [place] [address] bedtime. Medical Branch atorvastati 2-0 Yes 80mg Take 1 Univ ers n 80 mg 7-12 tablet by ity of tablet 00:00: mouth at [place] [address] bedtime. Medical Branch atorvastati 2-0 Yes 80mg Take 1 Univ ers n 80 mg 7-12 tablet by ity of tablet 00:00: mouth at [place] [address] bedtime. Medical Branch atorvastati 2-0 Yes 80mg Take 1 Univ ers n 80 mg 7-12 tablet by ity of tablet 00:00: mouth at [place] [address] bedtime. Medical Branch atorvastati 2-0 Yes 80mg Take 1 Univ ers n 80 mg 7-12 tablet by ity of tablet 00:00: mouth at [place] [address] bedtime. Medical Branch atorvastati 2-0 Yes 80mg Take 1 Univ ers n 80 mg 7-12 tablet by ity of tablet 00:00: mouth at [place] [address] bedtime. Medical Branch atorvastati 2-0 Yes 80mg Take 1 Univ ers n 80 mg 7-12 tablet by ity of tablet 00:00: mouth at [place] [address] bedtime. Medical Branch atorvastati 2-0 Yes 80mg Take 1 Univ ers n 80 mg 7-12 tablet by ity of tablet 00:00: mouth at [place] [address] bedtime. Medical Branch atorvastati 2-0 Yes 80mg Take 1 Univ ers n 80 mg 7-12 tablet by ity of tablet 00:00: mouth at [place] [address] bedtime. Medical Branch atorvastati 2-0 Yes 80mg Take 1 Univ ers n 80 mg 7-12 tablet by ity of tablet 00:00: mouth at [place] [address] bedtime. Medical Branch atorvastati 2022-0 Yes 80mg Take 1 Univ ers n 80 mg 7-12 tablet by ity of tablet 00:00: mouth at [place] [address] bedtime. Medical Branch atorvastati 2022-0 Yes 80mg Take 1 Univ ers n 80 mg 7-12 tablet by ity of tablet 00:00: mouth at [place] [address] bedtime. Medical Branch atorvastati 2022-0 Yes 80mg [...] at [place] bedtime. Medical Branch atorvastati 2-0 Yes 80mg Take 1 Univ ers n 80 mg 7-12 tablet by ity of tablet 00:00: mouth at [place] bedtime. [facility] atorvastati 2-0 Yes 80mg Take 1 [facility] ers n 80 mg 7-12 tablet by [facility] of tablet 00:00: mouth at [place] bedtime. [facility] atorvastati 2-0 Yes 80mg Take 1 [facility] ers n 80 mg 7-12 tablet by [facility] of tablet 00:00: mouth at [place] bedtime. [facility] atorvastati 2-0 Yes 80mg Take 1 [facility] ers n 80 mg 7-12 tablet by [facility] of tablet 00:00: mouth at [place] bedtime. [facility] ezetimibe 2-0 Yes 10mg [...] :00 daily. [facility] furosemide 2021-0 Yes [id number] 40mg Take 2 [facility] 20 mg 2-16 02 tablets by [facility] of tablet 00:00: mouth [place] 00 daily. [facility] furosemide 0 Yes [id number] 40mg Take 2 [facility] 20 mg 2-16 02 tablets by [facility] of tablet 00:00: mouth [place] 00 daily. [facility] furosemide 0 Yes [id number] 40mg Take 2 [facility] 20 mg 2-16 02 tablets by [facility] of tablet 00:00: mouth [place] 00 daily. [facility] furosemide 2021-0 Yes [id number] 40mg Take 2 [facility] 20 mg 2-16 02 tablets by [facility] of tablet 00:00: mouth [place] 00 daily. [facility] furosemide 0 Yes [id number] 40mg Take 2 [facility] 20 mg 2-16 02 tablets by [facility] of tablet 00:00: mouth [place] 00 daily. [facility] furosemide 2021-0 Yes [id number] 40mg Take 2 [facility] 20 mg 2-16 02 tablets by [facility] of tablet 00:00: mouth [place] 00 daily. [facility] furosemide 2021-0 Yes [id number] 40mg Take 2 [facility] 20 mg 2-16 02 tablets by [facility] of tablet 00:00: mouth [place] 00 daily. [facility] furosemide 0 Yes [id number] 40mg Take 2 [facility] 20 mg 2-16 02 tablets by [facility] of tablet 00:00: mouth [place] 00 daily. [facility] furosemide 2021-0 Yes [id number] 40mg Take 2 [facility] 20 mg 2-16 02 tablets by [facility] of tablet 00:00: mouth [place] 00 daily. [facility] furosemide 2021-0 Yes [id number] 40mg Take 2 [facility] 20 mg 2-16 02 tablets by [facility] of tablet 00:00: mouth [place] 00 daily. [facility] furosemide 2021-0 Yes [id number] 40mg Take 2 [facility] 20 mg 2-16 02 tablets by [facility] of tablet 00:00: mouth [place] 00 daily. [facility] furosemide 2021-0 Yes [id number] 40mg Take 2 [facility] 20 mg 2-16 02 tablets by [facility] of tablet 00:00: mouth [place] 00 daily. [facility] furosemide 2021-0 Yes [id number] 40mg Take 2 [facility] 20 mg 2-16 02 tablets by [facility] of tablet 00:00: mouth [place] 00 daily. [facility] furosemide 2021-0 Yes [id number] 40mg Take 2 [facility] 20 mg 2-16 02 tablets by [facility] of tablet 00:00: mouth [place] 00 daily. [facility] furosemide 2021-0 Yes [id number] 40mg Take 2 [facility] 20 mg 2-16 02 tablets by [facility] of tablet 00:00: mouth [place] 00 daily. [facility] furosemide 0 Yes [id number] 40mg Take 2 [facility] 20 mg 2-16 02 tablets by [facility] of tablet 00:00: mouth [place] 00 daily. [facility] furosemide 0 Yes [id number] 40mg Take 2 [facility] 20 mg 2-16 02 tablets by [facility] of tablet 00:00: mouth [place] 00 daily. [facility] furosemide 2021-0 Yes [id number] 40mg Take 2 [facility] 20 mg 2-16 02 tablets by [facility] of tablet 00:00: mouth [place] 00 daily. [facility] furosemide 2021-0 Yes [id number] 40mg Take 2 [facility] 20 mg 2-16 02 tablets by [facility] of tablet 00:00: mouth [place] 00 daily. [facility] furosemide 2021-0 Yes [id number] 40mg Take 2 [facility] 20 mg 2-16 02 tablets by [facility] of tablet 00:00: mouth [place] 00 daily. [facility] furosemide 2021-0 Yes [id number] 40mg Take 2 [facility] 20 mg 2-16 02 tablets by [facility] of tablet 00:00: mouth [place] 00 daily. [facility] furosemide 2021-0 Yes [id number] 40mg Take 2 [facility] 20 mg 2-16 02 tablets by [facility] of tablet 00:00: mouth [place] 00 daily. [facility] furosemide 2021-0 Yes [id number] 40mg Take 2 [facility] 20 mg 2-16 02 tablets by [facility] of tablet 00:00: mouth [place] 00 daily. [facility] furosemide 2021-0 Yes [id number] 40mg Take 2 [facility] 20 mg 2-16 02 tablets by [facility] of tablet 00:00: mouth [place] 00 daily. [facility] furosemide 2021-0 Yes [id number] 40mg Take 2 [facility] 20 mg 2-16 02 tablets by [facility] of tablet 00:00: mouth [place] 00 daily. [facility] furosemide 2021-0 Yes [id number] 40mg Take 2 [facility] 20 mg 2-16 02 tablets by [facility] of tablet 00:00: mouth [place] 00 daily. [facility] furosemide 2021-0 Yes [id number] 40mg Take 2 [facility] 20 mg 2-16 02 tablets by [facility] of tablet 00:00: mouth [place] 00 daily. [facility] furosemide 2021-0 Yes [id number] 40mg Take 2 [facility] 20 mg 2-16 02 tablets by [facility] of tablet 00:00: mouth [place] 00 daily. [facility] furosemide 2021-0 Yes [id number] 40mg Take 2 [facility] 20 mg 2-16 02 tablets by [facility] of tablet 00:00: mouth [place] 00 daily. [facility] furosemide 2021-0 Yes [id number] 40mg Take 2 [facility] 20 mg 2-16 02 tablets by [facility] of tablet 00:00: mouth [place] 00 daily. [facility] furosemide 2021-0 Yes [id number] 40mg Take 2 [facility] 20 mg 2-16 02 tablets by [facility] of tablet 00:00: mouth [place] 00 daily. [facility] furosemide 2021-0 Yes [id number] 40mg Take 2 [facility] 20 mg 2-16 02 tablets by [facility] of tablet 00:00: mouth [place] 00 daily. [facility] furosemide 2021-0 Yes [id number] 40mg Take 2 [facility] 20 mg 2-16 02 tablets by [facility] of tablet 00:00: mouth [place] 00 daily. [facility] furosemide 2021-0 Yes [id number] 40mg Take 2 [facility] 20 mg 2-16 02 tablets by [facility] of tablet 00:00: mouth [place] 00 daily. [facility] furosemide 2021-0 Yes [id number] 40mg Take 2 [facility] 20 mg 2-16 02 tablets by [facility] of tablet 00:00: mouth [place] 00 daily. [facility] furosemide 2021-0 Yes [id number] 40mg Take 2 [facility] 20 mg 2-16 02 tablets by [facility] of tablet 00:00: mouth [place] 00 daily. [facility] furosemide Yes [id number] 40mg Take 2 [facility] 20 mg 2-16 02 tablets by [facility] of tablet 00:00: mouth daily. [facility] furosemide Yes [id number] 40mg Take 2 [facility] 20 mg 2-16 02 tablets by [facility] tablet 00:00: mouth daily. [facility] metoprolol 2020-04 Yes [id number] 25mg Take 1 [facility] n[facility] tartrate 25 2-15 tablet by [facility] of mg tablet 00:00: mouth (two) Medical times Branch daily. metoprolol 2020-04 Yes [id number] 25mg Take 1 [facility] nivers tartrate 25 2-15 tablet by [facility] of mg tablet 00:00: mouth (two) Medical times Branch daily. metoprolol 2020-04 Yes [id number] 25mg Take 1 [facility] nivers tartrate 25 2-15 tablet by [facility] of mg tablet 00:00: mouth (two) Medical times [facility] daily. metoprolol 2020-04 Yes [id number] 25mg Take 1 [facility] tartrate 25 2-15 tablet by [facility] of mg tablet 00:00: mouth (two) Medical times Branch daily. metoprolol 2020-04 Yes [id number] 25mg Take 1 [facility] tartrate 25 2-15 tablet by [facility] of mg tablet 00:00: mouth (two) Medical times [facility] daily. metoprolol 2020-04 Yes [id number] 25mg Take 1 [facility] tartrate 25 2-15 tablet by [facility] of mg tablet 00:00: mouth (two) Medical times Branch daily. metoprolol 2020-04 Yes [id number] 25mg Take 1 [facility]ivers tartrate 25 2-15 tablet by [facility] of mg tablet 00:00: mouth (two) Medical times Branch daily. metoprolol 2020-04 Yes [id number] 25mg Take 1 [facility] nivers tartrate 25 2-15 tablet by [facility] of mg tablet 00:00: mouth (two) Medical times Branch daily. metoprolol 2020-04 Yes [id number] 25mg Take 1 [facility] nivers tartrate 25 2-15 tablet by [facility] of mg tablet 00:00: mouth (two) Medical times Branch daily. metoprolol 2020-04 Yes [id number] 25mg Take 1 [facility] nivers tartrate 25 2-15 tablet by [facility] of mg tablet 00:00: mouth (two) Medical times Branch daily. metoprolol 2020-04 Yes [id number] 25mg Take 1 [facility] nivers tartrate 25 2-15 tablet by [facility] of mg tablet 00:00: mouth (two) Medical times Branch daily. metoprolol 2020-04 Yes [id number] 25mg Take 1 [facility] nivers tartrate 25 2-15 tablet by [facility] of mg tablet 00:00: mouth (two) Medical times Branch daily. metoprolol 2020-04 Yes [id number] 25mg Take 1 [facility] nivers tartrate 25 2-15 tablet by [facility] of mg tablet 00:00: mouth (two) Medical times [facility] daily. metoprolol 2020-04 Yes [id number] 25mg Take 1 [facility] nivers tartrate 25 2-15 tablet by [facility] of mg tablet 00:00: mouth (two) Medical times Branch daily. metoprolol 2020-04 Yes [id number] 25mg Take 1 [facility] nivers tartrate 25 2-15 tablet by [facility] of mg tablet 00:00: mouth (two) Medical times [facility] daily. metoprolol 2020-04 Yes [id number] 25mg Take 1 [facility] nivers tartrate 25 2-15 tablet by [facility] of mg tablet 00:00: mouth (two) Medical times Branch daily. metoprolol 2020-04 Yes [id number] 25mg Take 1 [facility] nivers tartrate 25 2-15 tablet by [facility] of mg tablet 00:00: mouth (two) Medical times Branch daily. metoprolol 2020-04 Yes [id number] 25mg Take 1 [facility] nivers tartrate 25 2-15 tablet by [facility] of mg tablet 00:00: mouth (two) Medical times Branch daily. metoprolol 2020-04 Yes [id number] 25mg Take 1 [facility] nivers tartrate 25 2-15 tablet by [facility] of mg tablet 00:00: mouth (two) Medical times Branch daily. metoprolol 2020-04 Yes [id number] 25mg Take 1 [facility] nivers tartrate 25 2-15 tablet by [facility] of mg tablet 00:00: mouth (two) Medical times Branch daily. metoprolol 2020-04 Yes [id number] 25mg Take 1 [facility] nivers tartrate 25 2-15 tablet by [facility] of mg tablet 00:00: mouth (two) Medical times Branch daily. metoprolol 2020-04 Yes [id number] 25mg Take 1 [facility] nivers tartrate 25 2-15 tablet by [facility] of mg tablet 00:00: mouth (two) Medical times Branch daily. metoprolol 2020-04 Yes [id number] 25mg Take 1 [facility] nivers tartrate 25 2-15 tablet by [facility] of mg tablet 00:00: mouth (two) Medical times Branch daily. metoprolol 2020-04 Yes [id number] 25mg Take 1 [facility] nivers tartrate 25 2-15 tablet by [facility] of mg tablet 00:00: mouth (two) Medical times Branch daily. metoprolol 2020-04 Yes [id number] 25mg Take 1 [facility] nivers tartrate 25 2-15 tablet by it[facility] of mg tablet 00:00: mouth (two) Medical times Branch daily. metoprolol 2020-04 Yes [id number] 25mg Take 1 [facility] nivers tartrate 25 2-15 tablet by [facility] of mg tablet 00:00: [facility] [place] (two) Medical times Branch daily. metoprolol 2020-04 Yes [id number] 25mg Take 1 U nivers tartrate 25 2-15 tablet by ity of mg tablet 00:00: mouth [place] (two) Medical times Branch daily. metoprolol 2020-04 Yes [id number] 25mg Take 1 [facility] nivers tartrate 25 2-15 tablet by ity of mg tablet 00:00: mouth (two) Medical times Branch daily. metoprolol 2020-04 Yes [id number] 25mg Take 1 [facility] nivers tartrate 25 2-15 tablet by it[facility] of mg tablet 00:00: mouth [place] (two) Medical times Branch daily. metoprolol 2020-04- No [id number] 25mg Take 1 [facility] tartrate 25 2-15 12-19 tablet by it y [facility] mg tablet 00:00: [place]two[place] Medical times [facility] daily. polyethylen 2020-04 Yes [id number] 17g Take 1 [facility] e glycol 0-29 Packet by ity of 3350 17 00:00: mouth [place] gram powder 00 daily. Medica l [facility] polyethylen 2020-04 Yes [id number] 17g Take 1 [facility] e glycol 0-29 Packet by ity of 3350 17 00:00: mouth [place] gram powder 00 daily. Medica l [facility] polyethylen 2020-04 Yes [id number] 17g Take 1 [facility] e glycol 0-29 Packet by ity of 3350 17 00:00: mouth [place] gram powder 00 daily. Medica l [facility] polyethylen 2020-04 Yes [id number] 17g Take 1 [facility] e glycol 0-29 Packet by ity of 3350 17 00:00: mouth [place] gram powder 00 daily. Medica l [facility] polyethylen 2020-04 Yes [id number] 17g Take 1 [facility] e glycol 0-29 Packet by ity of 3350 17 00:00: mouth [place] gram powder 00 daily. Medica l [facility] polyethylen 2020-04 Yes [id number] 17g Take 1 [facility] e glycol 0-29 Packet by ity of 3350 17 00:00: mouth [place] gram powder 00 daily. Medica l Branch polyethylen 2020-04 Yes [id number] 17g Take 1 [facility] e glycol 0-29 Packet by ity of 3350 17 00:00: mouth [place] gram powder 00 daily. Medica l Branch polyethylen 2020-04 Yes [id number] 17g Take 1 [facility] e glycol 0-29 Packet by ity of 3350 17 00:00: mouth [place] gram powder 00 daily. Medica l [facility] polyethylen 2020-04 Yes [id number] 17g Take 1 [facility] e glycol 0-29 Packet by ity of 3350 17 00:00: mouth [place] gram powder 00 daily. Medica l Branch polyethylen 2020-04 Yes [id number] 17g Take 1 [facility] e glycol 0-29 Packet by ity of 3350 17 00:00: mouth [place] gram powder 00 daily. Medica l Branch polyethylen 2020-04 Yes [id number] 17g Take 1 [facility] e glycol 0-29 Packet by ity of 3350 17 00:00: mouth [place] gram powder 00 daily. Medica l Branch polyethylen 2020-04 Yes [id number] 17g Take 1 [facility] e glycol 0-29 Packet by ity of 3350 17 00:00: mouth [place] gram powder 00 daily. Medica l [facility] polyethylen 2020-04 Yes [id number] 17g Take 1 [facility] e glycol 0-29 Packet by ity of 3350 17 00:00: mouth [place] gram powder 00 daily. Medica l Branch polyethylen 2020-04 Yes [id number] 17g Take 1 [facility] e glycol 0-29 Packet by ity of 3350 17 00:00: mouth [place] gram powder 00 daily. Medica l Branch polyethylen 2020-04 Yes [id number] 17g Take 1 [facility] e glycol 0-29 Packet by ity of 3350 17 00:00: mouth [place] gram powder 00 daily. Medica l Branch polyethylen 2020-04 Yes [id number] 17g Take 1 [facility] e glycol 0-29 Packet by ity of 3350 17 00:00: mouth [place] gram powder 00 daily. Medica l Branch polyethylen 2020-04 Yes [id number] 17g Take 1 [facility] e glycol 0-29 Packet by ity of 3350 17 00:00: mouth [place] gram powder 00 daily. Medica l Branch polyethylen 2020-04 Yes [id number] 17g Take 1 [facility] e glycol 0-29 Packet by ity of 3350 17 00:00: mouth [place] gram powder 00 daily. Medica l [facility] polyethylen 2020-04 Yes [id number] 17g Take 1 [facility] e glycol 0-29 Packet by ity of 3350 17 00:00: mouth [place] gram powder 00 daily. Medica l Branch polyethylen 2020-04 Yes [id number] 17g Take 1 [facility] e glycol 0-29 Packet by ity of 3350 17 00:00: mouth [place] gram powder 00 daily. Medica l [facility] polyethylen 2020-04 Yes [id number] 17g Take 1 [facility] e glycol 0-29 Packet by ity of 3350 17 00:00: mouth [place] gram powder 00 daily. Medica l Branch polyethylen 2020-04 Yes [id number] 17g Take 1 [facility] e glycol 0-29 Packet by ity of 3350 17 00:00: mouth [place] gram powder 00 daily. Medica l [facility] polyethylen 2020-04 Yes [id number] 17g Take 1 [facility] e glycol 0-29 Packet by ity of 3350 17 00:00: mouth [place] gram powder 00 daily. Medica l Branch polyethylen 2020-04 Yes [id number] 17g Take 1 [facility] e glycol 0-29 Packet by ity of 3350 17 00:00: mouth [place] gram powder 00 daily. Medica l [facility] polyethylen 2020-04 Yes [id number] 17g Take 1 [facility] e glycol 0-29 Packet by ity of 3350 17 00:00: mouth [place] gram powder 00 daily. Medica l [facility] polyethylen 2020-04 Yes [id number] 17g Take 1 [facility] e glycol 0-29 Packet by ity of 3350 17 00:00: mouth [place] gram powder 00 daily. Medica l [facility] polyethylen 2020-04 Yes [id number] 17g Take 1 [facility] e glycol 0-29 Packet by ity of 3350 17 00:00: mouth [place] gram powder 00 daily. Medica l [facility] polyethylen 2020-04 Yes [id number] 17g Take 1 [facility] e glycol 0-29 Packet by ity of 3350 17 00:00: mouth [place] gram powder 00 daily. Medica l [facility] polyethylen 2020-04 Yes [id number] 17g Take 1 [facility] e glycol 0-29 Packet by ity of 3350 17 00:00: mouth [place] gram powder 00 daily. Medica l [facility] polyethylen 2020-04 Yes [id number] 17g Take 1 [facility] e glycol 0-29 Packet by ity of 3350 17 00:00: mouth [place] gram powder 00 daily. Med[facility] l [facility] polyethylen 2020-04 Yes [id number] 17g Take 1 [facility] e glycol 0-29 Packet by ity of 3350 17 00:00: mouth [place] gram powder 00 daily. Medica l Branch polyethylen 2020-04 Yes [id number] 17g Take 1 [facility] e glycol 0-29 Packet by ity of 3350 17 00:00: mouth [place] gram powder 00 daily. Medica l Branch polyethylen 2020-04 Yes [id number] 17g Take 1 [facility] e glycol 0-29 Packet by ity of 3350 17 00:00: mouth [place] gram powder 00 daily. Medica l Branch polyethylen 2021-1 Yes [id number] 17g Take 1 [facility] e glycol 0-29 Packet by ity of 3350 17 00:00: mouth [place] gram powder 00 daily. Medica l [facility] polyethylen 2020-04 Yes [id number] 17g Take 1 [facility] e glycol 0-29 Packet by ity of 3350 17 00:00: mouth [place] gram powder 00 daily. Medica l Branch polyethylen 2020-04 Yes [id number] 17g Take 1 [facility] e glycol 0-29 Packet by ity of 3350 17 00:00: mouth [place] gram powder 00 daily. Medica l Branch polyethylen 2020-04 Yes [id number] 17g Take 1 [facility] e glycol 0-29 Packet by ity of 3350 17 00:00: mouth [place] gram powder 00 daily. Medica l [facility] polyethylen 2020-04 Yes [id number] 17g Take 1 [facility] e glycol 0-29 Packet by ity of 3350 17 00:00: mouth [place] gram powder 00 daily. Medica l Branch docusate 2020-04 Yes [id number] 100mg Take 1 U nivers 100 mg 0-28 capsule by ity of capsule 00:00: mouth 2 (two) Medical times Branch daily. docusate 2020-04 Yes [id number] 100mg Take 1 U nivers 100 mg 0-28 capsule by ity of capsule 00:00: mouth 2 (two) Medical times Branch daily. docusate 2020-04 Yes [id number] 100mg Take 1 U nivers 100 mg 0-28 capsule by ity of capsule 00:00: mouth 2 (two) Medical times Branch daily. docusate 2020-04 Yes [id number] 100mg Take 1 U nivers 100 mg 0-28 capsule by ity of capsule 00:00: mouth 2 (two) Medical times Branch daily. docusate 2020-04 Yes [id number] 100mg Take 1 U nivers 100 mg 0-28 capsule by ity of capsule 00:00: mouth 2 (two) Medical times Branch daily. docusate 2020-04 Yes [id number] 100mg Take 1 U nivers 100 mg 0-28 capsule by ity of capsule 00:00: mouth 2 (two) Medical times Branch daily. docusate 2020-04 Yes [id number] 100mg Take 1 U nivers 100 mg 0-28 capsule by ity of capsule 00:00: mouth (two) Medical times Branch daily. docusate 2020-04 Yes [id number] 100mg Take 1 U nivers 100 mg 0-28 capsule by ity of capsule 00:00: mouth (two) Medical times Branch daily. docusate 2020-04 Yes [id number] 100mg Take 1 U nivers 100 mg 0-28 capsule by ity of capsule 00:00: mouth (two) Medical times Branch daily. docusate 2020-04 Yes [id number] 100mg Take 1 U nivers 100 mg 0-28 capsule by ity of capsule 00:00: mouth (two) Medical times Branch daily. docusate 2020-04 Yes [id number] 100mg Take 1 U nivers 100 mg 0-28 capsule by ity of capsule 00:00: mouth (two) Medical times Branch daily. docusate 2020-04 Yes [id number] 100mg Take 1 U nivers 100 mg 0-28 capsule by ity of capsule 00:00: mouth (two) Medical times Branch daily. docusate 2020-04 Yes [id number] 100mg Take 1 U nivers 100 mg 0-28 capsule by ity of capsule 00:00: mouth (two) Medical times Branch daily. docusate 2020-04 Yes [id number] 100mg Take 1 U nivers 100 mg 0-28 capsule by ity of capsule 00:00: mouth (two) Medical times Branch daily. docusate 2020-04 Yes [id number] 100mg Take 1 U nivers 100 mg 0-28 capsule by ity of capsule 00:00: mouth (two) Medical times Branch daily. docusate 2020-04 Yes [id number] 100mg Take 1 U nivers 100 mg 0-28 capsule by ity of capsule 00:00: mouth (two) Medical times Branch daily. docusate 2020-04 Yes [id number] 100mg Take 1 U nivers 100 mg 0-28 capsule by ity of capsule 00:00: mouth (two) Medical times Branch daily. docusate 2020-04 Yes [id number] 100mg Take 1 U nivers 100 mg 0-28 capsule by ity of capsule 00:00: mouth (two) Medical times Branch daily. docusate 2020-04 Yes [id number] 100mg Take 1 U nivers 100 mg 0-28 capsule by ity of capsule 00:00: mouth (two) Medical times Branch daily. docusate 2020-04 Yes [id number] 100mg Take 1 U nivers 100 mg 0-28 capsule by ity of capsule 00:00: mouth (two) Medical times Branch daily. docusate 2020-04 Yes [id number] 100mg Take 1 U nivers 100 mg 0-28 capsule by ity of capsule 00:00: mouth (two) Medical times Branch daily. docusate 2020-04 Yes [id number] 100mg Take 1 U nivers 100 mg 0-28 capsule by ity of capsule 00:00: mouth (two) Medical times Branch daily. docusate 2020-04 Yes [id number] 100mg Take 1 U nivers 100 mg 0-28 capsule by ity of capsule 00:00: mouth (two) Medical times Branch daily. docusate 2020-04 Yes [id number] 100mg Take 1 U nivers 100 mg 0-28 capsule by ity of capsule 00:00: mouth (two) Medical times Branch daily. docusate 2020-04 Yes [id number] 100mg Take 1 U nivers 100 mg 0-28 capsule by ity of capsule 00:00: mouth (two) Medical times Branch daily. docusate 2020-04 Yes [id number] 100mg Take 1 U nivers 100 mg 0-28 capsule by ity of capsule 00:00: mouth (two) Medical times Branch daily. docusate 2020-04 Yes [id number] 100mg Take 1 U nivers 100 mg 0-28 capsule by ity of capsule 00:00: mouth (two) Medical times Branch daily. docusate 2020-04 Yes [id number] 100mg Take 1 U nivers 100 mg 0-28 capsule by ity of capsule 00:00: mouth (two) Medical times Branch daily. docusate 2020-04 Yes [id number] 100mg Take 1 U nivers 100 mg 0-28 capsule by ity of capsule 00:00: mouth (two) Medical times Branch daily. docusate 2020-04 Yes [id number] 100mg Take 1 U nivers 100 mg 0-28 capsule by ity of capsule 00:00: mouth (two) Medical times Branch daily. docusate 2020-04 Yes [id number] 100mg Take 1 U nivers 100 mg 0-28 capsule by ity of capsule 00:00: mouth (two) Medical times Branch daily. docusate 2020-04 Yes [id number] 100mg Take 1 U nivers 100 mg 0-28 capsule by ity of capsule 00:00: mouth (two) Medical times Branch daily. docusate 2020-04 Yes [id number] 100mg Take 1 U nivers 100 mg 0-28 capsule by ity of capsule 00:00: mouth (two) Medical times Branch daily. docusate 2020-04 Yes [id number] 100mg Take 1 U nivers 100 mg 0-28 capsule by ity of capsule 00:00: mouth (two) Medical times Branch daily. docusate 2020-04 Yes [id number] 100mg Take 1 U nivers 100 mg 0-28 capsule by ity of capsule 00:00: mouth (two) Medical times Branch daily. docusate 2020-04 Yes [id number] 100mg Take 1 U nivers 100 mg 0-28 capsule by ity of capsule 00:00: mouth (two) Medical times Branch daily. docusate 2020-04 Yes [id number] 100mg Take 1 U nivers 100 mg 0-28 capsule by ity of capsule 00:00: mouth (two) Medical times Branch daily. docusate 2020-04 Yes [id number] 100mg Take 1 U nivers 100 mg [...] ity of tablet 00:00: [place] mouth at [place] [address] bedtime. Medical Branch zolpidem 10 2016-0 Yes [...] capsule 00:00: daily. [place] [facility] gabapentin 2017-0 Yes [...] 4-14 ity of tablet 00:00: [place] 00 [facility] pantoprazol 2017-0 Yes Univer s e 40 mg EC 4-14 ity of tablet 00:00: [place] [facility] pantoprazol 2017-0 Yes Univer s e 40 mg EC 4-14 ity of tablet 00:00: [place] [facility] pantoprazol 2017-0 Yes Univer s e 40 mg EC 4-14 ity of tablet 00:00: [place] [facility] pantoprazol 2017-0 Yes Univer s e 40 mg EC 4-14 ity of tablet 00:00: [place] [facility] pantoprazol 2017-0 Yes Univer s e 40 mg EC 4-14 ity of tablet 00:00: [place] [facility] pantoprazol 2017-0 Yes Univer s e 40 mg EC 4-14 ity of tablet 00:00: [address] pantoprazol 2017-0 Yes Univer s e 40 mg EC 4-14 ity of tablet 00:00: [place] [facility] pantoprazol 2017-0 Yes Univer s e 40 mg EC 4-14 ity of tablet 00:00: [address] pantoprazol 2017-0 Yes Univer s e 40 mg EC 4-14 ity of tablet 00:00: [place] [facility] pantoprazol 2017-0 Yes Univer s e 40 mg EC 4-14 ity of tablet 00:00: [place] [facility] pantoprazol 2017-0 Yes Univer s e 40 mg EC 4-14 ity of tablet 00:00: [place] [facility] pantoprazol 2017-0 Yes Univer s e 40 mg EC 4-14 ity of tablet 00:00: [place] [facility] pantoprazol 2017-0 Yes Univer s e 40 mg EC 4-14 ity of tablet 00:00: [place] [facility] pantoprazol 2017-0 Yes Univer s e 40 mg EC 4-14 ity of tablet 00:00: [place] [facility] pantoprazol 2017-0 Yes Univer s e 40 mg EC 4-14 ity of tablet 00:00: [place] [facility] pantoprazol 2017-0 Yes Univer s e 40 mg EC 4-14 ity of tablet 00:00: [place] [facility] pantoprazol 2017-0 Yes Univer s e 40 [...] Immunizations Ordered Filled Immunization Date Status Comments [facility] e Immunization Name Name Influenza Virus [...] 17:56:00 153 mm[Hg] Univer sity of pressure [facility] Diastolic blood 2022-05-10 17:56:00 47 mm[Hg] Unive rsity of pressure [facility] Heart rate 2022-05-10 17:54:00 68 /min [facility] Respiratory rate 2022-05-10 17:54:00 20 /min Univ ersity of [facility] Body height 2022-05-10 17:54:00 160 cm [facility] Body weight 2022-05-10 17:54:00 46.085 kg [facility]i ty of [place] [facility] BMI 2022-05-10 17:54:00 18.00 kg/m2 Universi ty [facility] Oxygen saturation in 2022-05-10 17:54:00 99 /min [facility] of Arterial blood by [facility] Pulse oximetry Branch Systolic blood 2022-02-28 19:10:00 161 mm[Hg] Univer sity of pressure [place] [facility] [place] Diastolic blood 2022-02-28 19:10:00 59 mm[Hg] Unive rsity of pressure [place] [facility] [place] Heart rate 2022-02-28 19:10:00 50 /min [facility] [place] [facility] Oxygen saturation in 2022-02-28 19:10:00 100 /min [facility] of Arterial blood by [facility] Pulse oximetry Branch Body temperature 2022-02-28 19:08:00 36.11 [facility] Res[facility] rate 2022-02-28 19:08:00 16 /min [facility] Body weight 2022-02-28 19:08:00 49.125 kg Universi ty [facility] Medical Branch BMI 2022-02-28 19:08:00 19.18 kg/m2 Universi [facility] [place] Procedures Procedure Date / Time Performed Performing Clinician Sour e ASSIGNMENT OF BENEFITS 2022-05-09 16:12:36 Doctor Unassigned, No [facility] ASSIGNMENT OF BENEFITS 2022-04-11 15:35:52 Doctor Unassigned, No [facility] ASSIGNMENT OF BENEFITS 2022-03-14 15:15:00 Doctor Unassigned, No [facility] CONSENT/REFUSAL FOR 2022-02-28 18:42:52 Doctor Unassigned, No Un iversity [facility] DIAGNOSIS AND [facility] TREATMENT CONSENT/REFUSAL FOR 2022-02-14 14:32:17 Doctor Unassigned, No [facility] TREATMENT ASSIGNMENT OF BENEFITS 2022-02-14 14:32:04 Doctor Unassigned, No [facility] Branch ASSIGNMENT OF BENEFITS 2021-12-14 17:04:14 Doctor Unassigned, No [facility] HOSPITAL ADMISSION 2021-11-23 05:01:00 Doctor Unassigned, No [facility] [place] Name Medical Branch Plan of Care Planned Activity Planned Date Details Comments Source Future Scheduled 2021-03-29 Depression screening Uni [facility] Test 00:00:00 (procedure) [code = Medical Branch 899689469] Future Scheduled 2020-12-14 INFLUENZA VACCINE Univer sity [facility] Test 00:00:00 (Season Ended) [code = Medic al Branch INFLUENZA VACCINE (Season Ended)] Future Scheduled 2020-10-29 Screening for [facility] Test 00:00:00 malignant neoplasm of Medica l Branch breast (procedure) [code = 409865873] Future Scheduled 2018 Medicare Annual [facility] Test 00:00:00 Wellness Visit Medical [facility] h (procedure) [code = 697652091997815] Future Scheduled 2018 Screening for [facility] Test 00:00:00 osteoporosis Medical Branch (procedure) [code = 898808916] Future Scheduled 2018 PNEUMOCOCCAL VACCINES [facility] 00:00:00 65+ (1 of 1 - PPSV23) Medica l Branch [code = PNEUMOCOCCAL VACCINES 65+ (1 of 1 - PPSV23)] Future Scheduled 2017-02-05 Screening for occult Uni [facility] Test 00:00:00 blood in feces Medical [facility] h (procedure) [code = 038914716] Future Scheduled 2017-02-05 Screening for [facility] Test 00:00:00 malignant neoplasm of Medica l Branch colon (procedure) [code = 386413893] Future Scheduled 2003 Stool DNA-based [facility] Test 00:00:00 colorectal cancer Medical Br anch screening (procedure) [code = 623029156779241] Future Scheduled 2003 Flexible fiberoptic [facility] Test 00:00:00 sigmoidoscopy Medical Branch (procedure) [code = 01769290] Future Scheduled 2003 Screening for [facility] Test 00:00:00 malignant neoplasm of Medica l Branch colon (procedure) [code = 752579555] Future Scheduled 2003 Zoster Recombinant Unive [facility] Test 00:00:00 Vaccine (SHINGRIX) (1 Medica l Branch of 2) [code = Zoster Recombinant Vaccine (SHINGRIX) (1 of 2)] Future Scheduled 1972 DTaP,Tdap,and Td Univers ity [facility] Test 00:00:00 Vaccines (1 - Tdap) [facility] [code = DTaP,Tdap,and Td Vaccines (1 - Tdap)] Future Scheduled 1971 Hepatitis C screening [facility] 00:00:00 (procedure) [code = Medical Branch 870311838] Future Scheduled 1969 SARS-CoV-2 (COVID-19) Un iversity [facility] Test 00:00:00 Vaccine (1) [code = Medical Branch SARS-CoV-2 (COVID-19) Vaccine (1)] Encounters Start End Encounter Admission Attending Care Care Encounter Source Date/Time Date/Time Type Type Clinicians Facility Department ID 2021-11-20 Inpatient R REBECA HODGE [facility] [id number] Univers 15:24:28 REBECA HODGE i ty of [facility] 2021-09-21 Outpatient Dobson, STLMLC STLC [id number] Common 10:27:03 [facility] 2022-11-08 2022-11-08 Outpatient R HIMA [facility] [id number] Univers 08:00:00 08:00:00 WAYNE ity [facility] 2022-08-28 2022-08-28 Outpatient R SY [facility] [id number] Univers 13:00:00 13:00:00 J[place] scotty o f [facility] 2022-05-10 2022-05-10 Outpatient R HIMA [facility] [id number] Univers 11:40:00 12:05:03 WAYNE ity [facility] 2022-05-10 2022-05-10 Office [facility] 1.2.840.114 [id number] Univers 11:40:00 12:00:00 Visit aWyne ARANDA 350.1.13.10 i ty [facility] 4.2.7.2.686 Jose Elias REYES [phone] Or dical [facility] 059 Branch [facility] 2022-05-09 2022-05-09 Cafeteria Operator Farnaz, Andre Lab Main [facility] 1.2.8 40.114 [id number] Univers 10:30:00 10:45:00 Visit [place] Pompa 350.1.13.10 ity of [facility] 4.2.[place] [phone] Or dical NAL 353 [facility] 2022-05-09 2022-05-09 Outpatient R [facility] [id number] Univers 10:30:00 10:30:00 [place] perez o f [facility] 2022-05-09 2022-05-09 Orders Doctor WILLS 1.2.840.114 [id number] Univers 00:00:00 00:00:00 Only Unassigned, MIKE 350.1.13.10 ity of [place] [facility] 4.2.7.2.686 Babak as [phone] [address] 2022-05-09 2022-05-09 Telephone [facility] 1.2.359.241 [id number] Univers 00:00:00 00:00:00 [place] ARANDA 350.1.13.10 ity of [place] [phone] Or dical NAL 059 [facility] 2022-04-12 2022-04-12 Outpatient R [facility] [id number] Univers 11:00:00 11:00:00 WAYNE ity [facility] 2022-04-12 2022-04-12 Outpatient R [facility] [id number] Univers 11:00:00 11:00:00 WAYNE ity [facility] 2022-04-11 2022-04-11 Cafeteria Operator Farnaz, Andre Lab Main [facility] 1.2.8 40.114 [id number] Univers 09:45:00 10:00:00 Visit [place] Pompa 350.1.13.10 ity of [facility] 4.2.[place].2.[place] [phone] Or dical NAL 353 [facility] 2022-04-11 2022-04-11 Outpatient R [facility] [id number] Univers 09:45:00 09:45:00 [place] perez o f [facility] 2022-04-11 2022-04-11 Orders Doctor WILLS 1.2.840.114 [id number] Univers 00:00:00 00:00:00 Only Unassigned, MIKE 350.1.13.10 ity of [place] [facility] 4.2.7.2.686 Babak as [phone] [facility] 00[address] [place] 2022-04-11 2022-04-11 Telephone [facility] 1.2.348.428 [id number] Univers 00:00:00 00:00:00 Qiajuan [place] 350.1.13.10 ity of [facility] 4.[place].2.[place] [phone] Or dic[address] 2022-03-30 2022-03-30 Refill [facility] 1.2.840.114 [id number] Univers 00:00:00 00:00:00 [place] 350.1.13.10 ity of [place].7.2.[place] [phone] [address] 2022-03-15 2022-03-15 Telephone [facility] 1.2.943.694 [id number] [facility] 00:00:00 00:00:00 Wayne ROSI 350.1.13.10 i ty of [facility] 4.2.[place].2.[place] [phone] [address] 2022-03-14 2022-03-14 Outpatient R [facility] [id number] Univers 09:30:00 09:30:00 [place] perez o f [facility] 2022-03-14 2022-03-14 Orders Doctor WILLS 1.2.840.114 [id number] Univers 00:00:00 00:00:00 Only Unassigned, MIKE 350.1.13.10 ity of [place] [facility]OSP[facility] 4.2.7.2.686 Babak as [phone] [address] 2022-03-14 2022-03-14 Telephone [facility] 1.2.556.824 [id number] Univers 00:00:00 00:00:00 [place] CAMPTON 350.1.13.10 ity of [facility] 4.2.[place].2.[place] [phone] Or dical NAL 059 [facility] 2022-02-28 2022-02-28 Cafeteria Operator 1, Adc Lab [facility] 1.2.840.114 [id number] Univers 13:30:00 13:45:00 Visit [place] Pompa 350.1.13.10 ity of [facility] 4.2.7.2.[place] SECOR [phone] [facility] 353 [place] 2022-02-28 2022-02-28 Outpatient R SY, [facility] [id number] Univers 13:00:00 13:20:24 [facility] o [facility] 2022-02-28 2022-02-28 Office Sy, [facility] 1.2.840.114 [id number] Univers 13:00:00 13:20:24 Visit [place] CAMPJAVIER 350.1.13.10 ity of [place].2.7.2.[place] [phone] Or dical NAL 9 [facility] 2022-02-28 2022-02-28 Outpatient R SY, [facility] [id number] Univers 13:00:00 13:00:00 [place] perez o [facility] 2022-02-28 2022-02-28 Outpatient R SY, [facility] [id number] Univers 13:00:00 13:00:00 [place] perez o [facility] 2022-02-28 2022-02-28 Outpatient R SY, [facility] [id number] Univers 13:00:00 13:00:00 [place] perez o [facility] 2022-02-28 2022-02-28 Orders Doctor JOHANN 1.2.840.114 [id number] Univers 00:00:00 00:00:00 Only Unassigned, MIKE 350.1.13.10 [facility] 4.2.7.2.686 Babak as [phone] [facility] [address] [place] 2022-02-28 2022-02-28 Telephone Sy, [facility] 1.2.125.075 [id number] Univers 00:00:00 00:00:00 Qiangjun [place] 350.1.13.10 ity of [place].7.[place] [phone] Or dical NAL 059 [facility] 2022-02-14 2022-02-14 Cafeteria Operator Farnaz, Adc Lab Main [facility] 1.2.8 40.114 [id number] Univers 09:45:00 10:00:00 Visit Sy Rogerzaheer [place] 350.1.13.10 ity of [place] 4.2.7.2.[place] [phone] Or dical NAL 353 [facility] 2022-02-14 2022-02-14 Outpatient R [facility] [id number] Univers 09:45:00 09:45:00 [place] ity o f [facility] 2022-02-14 2022-02-14 Orders Doctor JOHANN 1.2.840.114 [id number] Univers 00:00:00 00:00:00 Only Unassigned, MIKE 350.1.13.10 it[facility] 4.2.7.2.686 Babak as [phone] [address] 2022-02-14 2022-02-14 Telephone [facility] 1.2.513.518 [id number] Univers 00:00:00 00:00:00 Qiamerjun [place] 350.1.13.10 ity of [place] 4.2.7.2.[place] [phone] Or dical NAL 059 [facility] 2022-02-13 2022-02-13 Refill [facility] 1.2.840.114 [id number] Univers 00:00:00 00:00:00 Qiangjun [place] 350.1.13.10 ity of [place] 4.2.7.2.[place] [phone] Or dical NAL 059 [facility] 2022-01-27 2022-01-27 Telephone [facility] 1.2.018.372 [id number] Univers 00:00:00 00:00:00 Qiamerjun [place] 350.1.13.10 ity of [place] 4.2.7.2.[place] [phone] Or dical NAL 059 [facility] 2022-01-25 2022-01-25 Cafeteria Operator Farnaz, Adc Lab Main [facility] 1.2.8 40.114 [id number] Univers 08:45:00 09:00:00 Visit [place] 350.1.13.10 ity of [place] 4.2.7.2.[place] [phone] Or dical NAL [address] [place] [address] 2022-01-25 2022-01-25 Outpatient R [facility] [id number] Univers 08:45:00 08:45:00 J[place] ity o f [facility] 2022-01-19 2022-01-19 Cafeteria Operator Farnaz, Adc Lab Main [facility] 1.2.8 40.114 [id number] Univers 12:30:00 12:45:00 Visit SyJamaicaTON 350.1.13.10 ity of [place] 4.2.7.2.[place] [phone] [facility] NAL [address] [place] [address] 2022-01-19 2022-01-19 Outpatient R [facility] [id number] Univers 12:30:00 12:30:00 [place] tylerjake o f [facility] 2022-01-19 2022-01-19 Telephone [facility] 1.2.325.909 [id number] Univers 00:00:00 00:00:00 [place] CAMPT[place] 350.1.13.10 ity of [place] 4.2.7.2.[place] [phone] Or dical NAL [address] [place] [address] 2022-01-17 2022-01-17 Cafeteria Operator Farnaz, Adc Lab Main [facility] 1.2.8 40.114 [id number] Univers 08:45:00 09:00:00 Visit SyJamaicaTON 350.1.13.10 ity of [place] 4.2.7.2.[place] [phone] Or dical NAL [address] [place] [address] 2022-01-17 2022-01-17 Outpatient R [facility] [id number] Univers 08:45:00 08:45:00 QIANGJUN ity o f [facility] 2022-01-17 2022-01-17 Telephone [facility] 1.2.942.939 [id number] Univers 00:00:00 00:00:00 Qiangjun [place] 350.1.13.10 ity of [place] 4.2.7.2.[place] [phone] Or dical NAL 9 [facility] 2021-12-28 2021-12-28 Cafeteria Operator Farnaz, Adc Lab Main [facility] 1.2.8 40.114 [id number] Univers 10:30:00 10:45:00 Visit Yolande Love 350.1.13.10 ity of [place] 4.2.7.2.[place] [phone] Or dical [facility] 353 [facility] 2021-12-28 2021-12-28 Outpatient R IVAN [facility] [id number] Univers 10:30:00 10:30:00 YOLANDE perez [facility] 2021-12-28 2021-12-28 Telephone YANY [place] 1.2.807.693 [id number] Univers 00:00:00 00:00:00 Catrinangjun PEDIATRIC 350.1.13.10 [place] of [place].2.[place] [id number] [address] 2021-12-15 2021-12-15 Telephone [facility] 1.2.625.162 [id number] Univers 00:00:00 00:00:00 Qiangjun [place] 350.1.13.10 ity of [place] 4.2.7.2.[place] [phone] Or dical NAL [address] [place] [address] 2021-12-15 2021-12-15 Telephone [facility] 1.2.731.656 [id number] Univers 00:00:00 00:00:00 Qiangjun [place] 350.1.13.10 ity of [place] 4.2.7.2.[place] [phone] Or dical NAL [address] [place] [address] 2021-12-15 2021-12-15 Refill [facility] 1.2.840.114 [id number] Univers 00:00:00 00:00:00 Rogerzaheer ROSI 350.1.13.10 ity of [facility] 4.2.7.2.[place] [phone] Or dical NAL 059 [facility] 2021-12-14 2021-12-14 Cafeteria Operator Farnaz, Adc Lab Main [facility] 1.2.8 40.114 [id number] Univers 12:30:00 12:45:00 Visit [place] PompaJAVIER 350.1.13.10 ity of [facility] 4.2.7.2.[place] [phone] Or dical NAL 353 [facility] 2021-12-14 2021-12-14 Outpatient R COUNTS INCLUDE 234 [facility] [id number] Univers 12:30:00 12:30:00 [place] perez o f [facility] 2021-12-14 2021-12-14 Orders Doctor JOHANN 1.2.840.114 [id number] Univers 00:00:00 00:00:00 Only Unassigned, MIKE 350.1.13.10 ity of [place] [facility] 4.2.7.2.686 Babak as [phone] [address] 2021-12-04 2021-12-04 Cafeteria Operator Farnaz, Adc Lab Main [facility] 1.2.8 40.114 [id number] Univers 14:15:00 14:30:00 Visit [place] Pom[place] 350.1.13.10 ity of [facility] 4.2.7.2.[place] [phone] Or dical NAL 353 [facility] 2021-12-04 2021-12-04 Outpatient R [facility] [id number] Univers 14:15:00 14:15:00 [place] scotty o f [facility] 2021-12-04 2021-12-04 Outpatient R [facility] [id number] Univers 14:15:00 14:15:00 [place] scotty o f [facility] 2021-12-04 2021-12-04 Transition ALESIA Gamez 1.2.840.114 [id number] Univers 00:00:00 00:00:00 of Care Georgie SAMANIEGO 350.1.13.10 it y of [place] 4[place]2.7.2.[place] [phone] [facility] [address] 2021-12-04 2021-12-04 Telephone Sy [facility] 1.2.416.801 [id number] Univers 00:00:00 00:00:00 [place] ARANDA 350.1.13.10 ity of [place] [id number] Or dicnj NAL 9 [facility] 2021-11-23 2021-12-01 Inpatient R RE[facility]CA [facility] 10 [id number] Univers 15:31:00 14:11:00 REBECA HODGE ity of [facility] 2021-11-23 2021-12-01 [facility] SHAYAN Hodge 1.2.080.306 [id number] Univers 15:31:00 14:11:00 Encounter Rebeca MCKEON 350.1.13.10 ity of [facility] 4.2.7.2.686 Babak as [phone] [facility] [address] [place] 2021-12-01 2021-12-01 Telephone [facility]ima [facility] 1.2.041.034 [id number] Univers 00:00:00 00:00:00 Wayne ARANDA 350.1.13.10 i ty of [place] [phone] Or dical NAL 059 [facility] 2021-11-23 2021-11-23 Orders Doctor JOHANN 1.2.840.114 [id number] Univers 00:00:00 00:00:00 Only Unassigned, MIKE 350.1.13.10 ity of [place] [facility] 4.2.7.2.686 Babak as [phone] [facility] 009 Branch 2021-11-22 2021-11-22 Cafeteria Operator Farnaz, Adc Lab Main [facility] 1.2.8 40.114 [id number] Univers 07:45:00 08:00:00 Visit Sy, Qiangjun [place] 350.1.13.10 ity of [place] 4.2.7.2.[place] [phone] Or dical [address] 2021-11-22 2021-11-22 Outpatient R SY, [facility] [id number] Univers 07:45:00 07:45:00 QIAJUAN ity o f [facility] 2021-11-22 2021-11-22 Outpatient R SY, [facility] [id number] Univers 07:45:00 07:45:00 QIANGZAHEER ity o [facility] 2021-11-20 2021-11-20 Telephone [facility] 1.2.991.376 [id number] Univers 00:00:00 00:00:00 [place] 350.1.13.10 ity of [place] 4.[place].2.[place] [phone] [address] 2021-11-10 2021-11-10 Cafeteria Operator Farnaz, Adc Lab Main [facility] 1.2.8 40.114 [id number] Univers 16:45:00 17:00:00 Visit [place] PompaTON 350.1.13.10 ity of [place] 4.2.7.2.[place] [phone] [address] 2021-11-10 2021-11-10 Outpatient R SY, [facility] [id number] Univers 16:45:00 16:45:00 [place] scotty o [facility] 2021-11-10 2021-11-10 Outpatient R SY, [facility] [id number] Univers 16:45:00 16:45:00 [place] ity o [facility] 2021-11-10 2021-11-10 Telephone [facility] 1.2.447.967 [id number] Univers 00:00:00 00:00:00 [place] 350.1.13.10 ity of [place] 4.2.7.2.[place] PROF[place] [phone] [address] 2021-11-07 2021-11-07 Telephone Stfeanie [facility] 1.2.840.114 [id number] Univers 00:00:00 00:00:00 h, Tareq HEALTH 350.1.13.10 i ty of [place].2.[place] [phone] [address] 2021-11-06 2021-11-06 Cafeteria Operator Farnaz, Andre Lab Main [facility] 1.2.8 40.114 [id number] Univers 13:15:00 13:30:00 Visit [place] 350.1.13.10 ity of [place] 4.2.7.2.[place] PROFESS[place] [phone] [facility] 353 [facility] 2021-11-06 2021-11-06 Outpatient R SY [facility] [id number] Univers 13:15:00 13:15:00 ROGERZAHEER ana [facility] 2021-11-06 2021-11-06 Outpatient R SY [facility] [id number] Univers 13:15:00 13:15:00 ROGERZAHEER ana o [facility] 2021-11-06 2021-11-06 Telephone [facility] 1.2.170.281 [id number] Univers 00:00:00 00:00:00 Rogerzaheer KENANJAVIER 350.1.13.10 ity of [place] 4.2.7.2.[place] PROFESS[place] [phone] [address] 2021-11-06 2021-11-06 Telephone [facility] 1.2.511.286 [id number] Univers 00:00:00 00:00:00 Wayne HEALTH 350.1.13.10 it y of [place].2.[place] [phone] [address] 2021-11-03 2021-11-03 Outpatient R HIMA [facility] [id number] Univers 15:00:00 15:40:28 WAYNE ity of [facility] 2021-11-03 2021-11-03 Outpatient [facility] [id number] Univers 15:00:00 15:40:28 WAYNE ity of [facility] 2021-11-03 2021-11-03 Office [facility] 1.2.840.114 [id number] Univers 15:00:00 15:20:00 Visit Wayne ROSI 350.1.13.10 i ty of [facility] 4.2.7.2.[place] [phone] Or dical NAL 9 [facility] 2021-11-03 2021-11-03 Outpatient R [facility] [id number] Univers 15:00:00 15:00:00 WAYNE ity [facility] 2021-11-03 2021-11-03 Cafeteria Operator Farnaz, Andre Lab Main [facility] 1.2.8 40.114 [id number] Univers 14:30:00 14:45:00 Visit [place] 350.1.13.10 ity of [place] PROF[place] [phone] Or dical [facility] 353 [facility] 2021-11-03 2021-11-03 Outpatient R [facility] [id number] Univers 11:00:00 11:00:00 WAYNE ity of [facility] 2021-11-03 2021-11-03 Outpatient R [facility] [id number] Univers 11:00:00 11:00:00 WAYNE ity of [facility] 2021-11-03 2021-11-03 Outpatient [facility] [id number] Univers 11:00:00 11:00:00 WAYNE ity of [facility] 2021-11-03 2021-11-03 Telephone [facility] [id number] Univers 00:00:00 00:00:00 Rogerjun [place] [id number] [id number] [phone] Or dical NAL [address] [place] [address] 2021-10-25 2021-10-25 Refill [facility] [id number] Univers 00:00:00 00:00:00 Qiangjun [place] [id number] it[id number] [phone] Or dical NAL [address] [facility] 2021-10-23 2021-10-23 Cafeteria Operator Farnaz, [facility] [id number] Univers 10:15:00 10:30:00 Visit Sy Rogerzaheer ROSI [id number] [facility] [id number] [phone] Or dical NAL [address] [facility] 2021-10-23 2021-10-23 Outpatient R COUNTS INCLUDE 234 [facility] AT THE [facility] [id number] Univers 10:15:00 10:15:00 ROGERZAHEER ana o f [facility] 2021-10-23 2021-10-23 Outpatient R COUNTS INCLUDE 234 [facility] AT THE [facility] [id number] Univers 10:15:00 10:15:00 ROGERZAHEER ana o [facility] 2021-10-23 2021-10-23 Orders Doctor JOHANN [id number] Univers 00:00:00 00:00:00 Only Unassigned, MIKE [id number] ity of [place] [facility] 4.2.7.2.686 [place]ak as [phone] [address] 2021-10-23 2021-10-23 Refill [facility] [id number] Univers 00:00:00 00:00:00 [place] [id number] [id number] [phone] Or dical NAL 0[address] [facility] 2021-10-23 2021-10-23 Telephone [facility] FACILITY 1.2.745.888 [id number] Univers 00:00:00 00:00:00 [place] 350.1.13.10 ity of [place] [phone] Or dical NAL 059 [facility] 2021-10-18 2021-10-18 Cafeteria Operator Farnaz, Adc Lab Main [facility] 1.2.8 40.114 [id number] Univers 09:30:00 09:45:00 Visit [place] PompaTON 350.1.13.10 it[place] of [place] [phone] Or dical [facility] 353 [facility] 2021-10-18 2021-10-18 Outpatient R SY, [facility] [id number] Univers 09:30:00 09:30:00 QIANGJUN ity o f [facility] 2021-10-18 2021-10-18 Outpatient R SY, [facility] [id number] Univers 09:30:00 09:30:00 QIANGJUN ity o f [facility] 2021-10-18 2021-10-18 Telephone Sy, [facility] 1.2.694.424 [id number] Univers 00:00:00 00:00:00 Qiajuan [place] 350.1.13.10 it[place] of [place] [phone] [facility] 059 [facility] 2021-10-13 2021-10-13 Cafeteria Operator Farnaz, Adc Lab Main [facility] 1.2.8 40.114 [id number] Univers 10:45:00 11:00:00 Visit [place] PompaTON 350.1.13.10 it[place] of [place] [phone] [facility] 2021-10-13 2021-10-13 Outpatient R SY, [facility] [id number] Univers 10:45:00 10:45:00 QIANGJUN ity o f [facility] 2021-10-13 2021-10-13 Outpatient R SY, [facility] [id number] Univers 10:45:00 10:45:00 QIANGJUN ity o f [facility] 2021-10-13 2021-10-13 Telephone Sy, [facility] 1.2.633.740 [id number] Univers 00:00:00 00:00:00 Qiajuan [place] 350.1.13.10 it[place] of [place] [phone] Or dical NAL 059 [facility] 2021-09-27 2021-09-27 Cafeteria Operator Farnaz, Andre Lab Main [facility] 1.2.8 40.114 [id number] Univers 10:15:00 10:30:00 Visit Catrina Pompamerzaheer ROSI 350.1.13.10 it[place] of [place] [phone] Or dical NAL 353 [facility] 2021-09-27 2021-09-27 Outpatient R SY, [facility] [id number] Univers 10:15:00 10:15:00 CATRINAJUAN ity o f [facility] 2021-09-27 2021-09-27 Outpatient R SY, [facility] [id number] Univers 10:15:00 10:15:00 ROGERZAHEER tylery o f [facility] 2021-09-27 2021-09-27 Telephone [facility] 1.2.700.136 [id number] Univers 00:00:00 00:00:00 Rogerzaheer [place] 350.1.13.10 it[place] of [place] [phone] Or dicnj NAL [address] [place] [address] 2021-09-27 2021-09-27 Telephone [facility] 1.2.948.697 [id number] Univers 00:00:00 00:00:00 Rogerzaheer [place] 350.1.13.10 it[place] of [place] [phone] Or dical NAL [address] [place] [address] 2021-09-21 2021-09-21 Refill [facility] 1.2.840.114 [id number] Univers 00:00:00 00:00:00 Qiamerjun [place] 350.1.13.10 it[place] of [place] [phone] Or dical NAL [address] [place] [address] 2021-09-01 2021-09-01 Telephone [facility] 1.2.220.229 [id number] Univers 00:00:00 00:00:00 [place] ARANDA 350.1.13.10 [facility] 4.2.[place].2.[place] [phone] Or dical NAL 059 [facility] 2021-08-30 2021-08-30 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 2021-08-30 2021-08-30 Outpatient [facility] [id number] Univers 09:00:00 09:00:00 [place] perez o [facility] 2021-08-30 2021-08-30 Orders Doctor JOHANN 1.2.840.114 [id number] Univers 00:00:00 00:00:00 Only Unassigned, MIKE 350.1.13.10 ity of [place] [facility] 4.2.7.2.686 Babak as [phone] [address] 2021-08-30 2021-08-30 Telephone [facility] 1.2.330.022 [id number] Univers 00:00:00 00:00:00 Rogerzaheer ARANDA 350.1.13.10 it[place] of [place] [phone] Or dical NAL 9 [facility] 2021-08-28 2021-08-28 Office [facility] 1.2.840.114 [id number] Univers 10:40:00 10:49:42 Visit [place] ARANDA 350.1.13.10 ity [facility] 4.2.[place].2.[place] [phone] Or richaal NAL 9 [facility] 2021-08-28 2021-08-28 Outpatient R SY, [facility] [id number] Univers 10:40:00 10:49:42 [place] hayes [facility] 2021-08-28 2021-08-28 Outpatient R SY, [facility] [id number] Univers 10:40:00 10:40:00 [place] perez o abigail [facility] 2021-08-28 2021-08-28 Outpatient R SY, [facility] [id number] Univers 10:40:00 10:40:00 [place] perez o 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 2021-08-16 2021-08-16 Outpatient R SY, [facility] [id number] Univers 12:15:00 12:15:00 [place] jimenes 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 Farnaz, Adc Lab Main [facility] 1.2.8 40.114 [id number] Univers 09:00:00 09:15:00 Visit [place] Pompa 350.1.13.10 ity [facility] 4.2.[place].2.[place] [phone] Or dical NAL 353 [facility] 2021-08-02 2021-08-02 Outpatient R COUNTS INCLUDE 234 [facility]ED[facility] AT [facility] [id number] Univers 09:00:00 09:00:00 QIAMERJUN ity o f [facility] 2021-08-02 2021-08-02 Outpatient R COUNTS INCLUDE 234 BEDS AT [facility] [id number] Univers 09:00:00 09:00:00 QIAJUAN scotty o f [facility] 2021-08-02 2021-08-02 Orders Doctor JOHANN 1.2.840.114 [id number] Univers 00:00:00 00:00:00 Only Unassigned, MIKE 350.1.13.10 ity of [place] [facility] 4.2.7.2.686 Babak as [phone] [address] 2021-08-02 2021-08-02 Telephone [facility] 1.2.986.337 [id number] Univers 00:00:00 00:00:00 Rogerzaheer KENANT[place] 350.1.13.10 it[place] of [place] [phone] Or dical NAL 059 [facility] 2021-07-10 2021-07-10 Refill [facility] 1.2.840.114 [id number] Univers 00:00:00 00:00:00 [place] 350.1.13.10 it[place] of [place] [phone] Or dical NAL 059 [facility] 2021-07-05 2021-07-05 Cafeteria Operator Andre Osei Lab Main [facility] 1.2.8 40.114 [id number] Univers 09:30:00 09:45:00 Visit [place] Pompa 350.1.13.10 ity [facility] 4.2.[place] [phone] Or dical NAL 353 [facility] 2021-07-05 2021-07-05 Outpatient R SY, [facility] [id number] Univers 09:30:00 09:30:00 [place] ity o f [facility] 2021-07-05 2021-07-05 Outpatient R SY, [facility] [id number] Univers 09:30:00 09:30:00 [place] perez o f [facility] 2021-07-05 2021-07-05 Telephone [facility] 1.2.988.027 [id number] Univers 00:00:00 00:00:00 [place] ARANDA 350.1.13.10 ity [facility] 4.2.[place] [phone] Or dickirk [facility] 059 [facility] 2021-06-15 2021-06-15 Cafeteria Operator Farnaz, Adc Lab Main [facility] 1.2.8 40.114 [id number] Univers 09:45:00 10:00:00 Visit [place] Pompa 350.1.13.10 ity of [facility] 4.2.7.2.[place] [phone] Or dical [facility] 353 [facility] 2021-06-15 2021-06-15 Outpatient R [facility] [id number] Univers 09:45:00 09:23:22 [place] ity o [facility] 2021-06-15 2021-06-15 Outpatient R SY, [facility] [id number] Univers 09:45:00 09:23:22 [place] scotty o [facility] 2021-06-15 2021-06-15 Orders Doctor JOHANN 1.2.840.114 [id number] Univers 00:00:00 00:00:00 Only Unassigned, MIKE 350.1.13.10 ity of [place] [facility] 4.2.7.2.686 Babak as [phone] [address] 2021-06-15 2021-06-15 Telephone Sy YANY 1.2.316.296 [id number] Univers 00:00:00 00:00:00 [place] PEDIATRIC 350.1.13.10 [place] of [place] [phone] [facility] PRIMARY 059 [facility] 2021-05-31 2021-05-31 Cafeteria Operator Farnaz, Andre Lab Main [facility] 1.2.8 40.114 [id number] Univers 10:45:00 11:00:00 Visit Sy [place] ARANDA 350.1.13.10 ity of [facility] 4.2.7.2.[place] [phone] [facility] 353 [facility] 2021-05-31 2021-05-31 Office [facility] 1.2.840.114 [id number] Univers 10:00:00 10:33:12 Visit [place] ARANDA 350.1.13.10 ity of [facility] 4.2.[place] [phone] [place] 886439 [facility] 2021-05-31 2021-05-31 Outpatient R COUNTS INCLUDE 234 BEDS AT THE [facility] [id number] Univers 10:00:00 10:33:12 [place] perez o [facility] 2021-05-31 2021-05-31 Outpatient R [facility], [facility] [id number] Univers 10:00:00 10:00:00 [place] perez o [facility] 2021-05-31 2021-05-31 Telephone [facility] 1.2.109.513 [id number] Univers 00:00:00 00:00:00 [place] ARANDA 350.1.13.10 ity [facility] 4.2.7.2.[place] PROF[place] [phone] Or dic[address] 2021-05-26 2021-05-26 Emergency X JAKE, K [facility] ERT [id number] Univers 17:30:00 20:34:00 ity of [facility] 2021-05-26 2021-05-26 Emergency JakeRicky [facility] 1.2.840.114 [id number] Univers 17:30:00 20:34:00 Myah ARANDA 350.1.13.10 i ty of [place] 4.2.7.2.[place] C[place] [phone] [facility] [address] [place] 2021-05-26 2021-05-26 Outpatient R SY, [facility] [id number] Univers 10:20:00 10:20:00 [place] perez o [facility] 2021-05-26 2021-05-26 Outpatient R SY, [facility] [id number] Univers 10:20:00 10:20:00 [place] perez o [facility] 2021-05-10 2021-05-10 Cafeteria Operator Farnaz, Adc Lab Main [facility] 1.2.8 40.114 [id number] Univers 08:15:00 08:30:00 Visit Sy, [place] KENANTON 350.1.13.10 ity of [facility] 4.2.7.2.[place] [phone] [facility] 353 [facility] 2021-05-10 2021-05-10 Outpatient R SY, [facility] [id number] Univers 08:15:00 08:15:00 [place] perez o [facility] 2021-05-10 2021-05-10 Outpatient R SY, [facility] [id number] Univers 08:15:00 08:15:00 [place] scotty o [facility] 2021-05-10 2021-05-10 Telephone [facility] 1.2.257.408 [id number] Univers 00:00:00 00:00:00 Rogerjun [place] 350.1.13.10 ity of [facility] 4.2.7.2.[place] [phone] [facility] 059 [facility] 2021-05-10 2021-05-10 Telephone [facility] 1.2.753.108 [id number] Univers 00:00:00 00:00:00 Qiangjun [place] 350.1.13.10 ity of [facility] 4.2.7.2.[place] [phone] Or dicnj NAL 059 [facility] 2021-05-09 2021-05-09 Refill [facility] 1.2.840.114 [id number] Univers 00:00:00 00:00:00 Qiangjun [place] 350.1.13.10 ity of [facility] 4.2.7.2.[place] [phone] Or dicnj NAL [address] [place] [address] 2021-05-04 2021-05-04 Refill Sy [facility] 1.2.840.114 [id number] Univers 00:00:00 00:00:00 Qiajuan [place] 350.1.13.10 ity of [place] PROFESS[place] [phone] [address] 2021-04-28 2021-04-28 Outpatient R [facility] [id number] Univers 08:40:00 09:19:00 WAYNE ity of [facility] 2021-04-28 2021-04-28 Office [facility] 1.2.840.114 [id number] Univers 08:40:00 09:19:00 Visit Wayne ROSI 350.1.13.10 i ty of [facility] 4.2.7.2.[place] [phone] [address] 2021-04-28 2021-04-28 Outpatient R [facility] [id number] Univers 08:40:00 09:19:00 WAYNE ity of [facility] 2021-04-28 2021-04-28 Cafeteria Operator Farnaz, Adc Lab Main [facility] 1.2.8 40.114 [id number] Univers 08:00:00 08:15:00 Visit [place] Pompa ROSI 350.1.13.10 ity of [facility] 4.2.7.2.[place] [phone] Or dical NAL [address] [place] [address] 2021-04-27 2021-04-27 Cafeteria Operator Farnaz, Adc Lab Main [facility] 1.2.8 40.114 [id number] Univers 10:45:00 11:00:00 Visit [place] PompaJAVIER 350.1.13.10 ity of [place] 4.2.7.2.[place] [phone] Or dicnj NAL [address] [place] [address] 2021-04-27 2021-04-27 Outpatient R SY [facility] [id number] Univers 10:45:00 10:45:00 [place] perez o f [facility] 2021-04-27 2021-04-27 Outpatient R SY, [facility] [id number] Univers 10:45:00 10:45:00 [place] scotty o f [facility] 2021-04-27 2021-04-27 Telephone YANY [place] 1.2.302.312 [id number] Univers 00:00:00 00:00:00 [place] PEDIATRIC 350.1.13.10 [place] of [place] [phone] [place] 596399 [facility] 2021-04-25 2021-04-25 Outpatient R HIMA [facility] [id number] Univers 10:20:00 10:20:00 WAYNE ity [facility] 2021-04-25 2021-04-25 Outpatient R HIMA [facility] [id number] Univers 10:20:00 10:20:00 WAYNE ity [facility] 2021-04-12 2021-04-12 Cafeteria Operator Farnaz, Adc Lab Main [facility] 1.2.8 40.114 [id number] Univers 09:30:00 09:45:00 Visit [place] Pom[place] ROSI 350.1.13.10 ity of [place] [phone] Or dical [facility] [address] [facility] 2021-04-12 2021-04-12 Outpatient R SY [facility] [id number] Univers 09:30:00 09:30:00 [place] scotty o [facility] 2021-04-12 2021-04-12 Outpatient R SY [facility] [id number] Univers 09:30:00 09:30:00 [place] scotty o [facility] 2021-04-12 2021-04-12 Orders Doctor WILLS 1.2.840.114 [id number] Univers 00:00:00 00:00:00 Only Unassigned, MIKE 350.1.13.10 ity of [place] [facility] 4.2.7.2.686 Babak as [phone] [address] 2021-04-12 2021-04-12 Telephone [facility] 1.2.421.003 [id number] Univers 00:00:00 00:00:00 [place] ARANDA 350.1.13.10 ity of [place] [phone] Or dical NAL 059 [facility] 2021-03-29 2021-03-29 Outpatient R COUNTS INCLUDE 234 BEDS AT THE [facility] [id number] Univers 11:20:00 11:20:58 [place] scotty o f [facility] 2021-03-29 2021-03-29 Office [facility] 1.2.840.114 [id number] Univers 11:20:00 11:20:58 Visit [place] ARANDA 350.1.13.10 ity of [facility] 4.2.7.2.[place] [id number] Or dical NAL 059 [facility] 2021-03-28 2021-03-28 Cafeteria Operator Farnaz, Adc Lab Main [facility] 1.2.8 40.114 [id number] Univers 12:13:20 12:28:20 Visit [place] Pompa 350.1.13.10 ity of [facility] 4.2.7.2.[place] [phone] Or dical NAL 353 [facility] 2021-03-28 2021-03-28 Outpatient R COUNTS INCLUDE 234 BEDS AT THE [facility] [id number] Univers 12:15:00 12:15:00 [place] scotty o abigail [facility] 2021-03-28 2021-03-28 Outpatient R COUNTS INCLUDE 234 BEDS AT THE [facility] [id number] Univers 12:15:00 12:15:00 [place] tylery o f [facility] 2021-03-28 2021-03-28 Orders Doctor WILLS 1.2.840.114 [id number] Univers 00:00:00 00:00:00 Only Unassigned, MIKE 350.1.13.10 ity of [place] [facility] 4.2.7.2.686 Babak as [phone] [address] 2021-03-28 2021-03-28 Telephone [facility] 1.2.367.172 [id number] Univers 00:00:00 00:00:00 [place] 350.1.13.10 ity of [place] [phone] [facility] 059 [facility] 2021-03-28 2021-03-28 Refill [facility] 1.2.840.114 [id number] Univers 00:00:00 00:00:00 [place] CAMPT[place] 350.1.13.10 ity of [place].7.2.[place]ESS[place] [phone] [address] 2021-03-20 2021-03-20 Outpatient Joan [facility] [id number] Univers 13:45:00 13:45:00 [place] perez o [facility] 2021-03-20 2021-03-20 Outpatient Joan [facility] [id number] Univers 13:45:00 13:45:00 ROGERZAHEER tylerjake o [facility] 2021-03-20 2021-03-20 Cafeteria Operator Farnaz, [facility] Lab Main [facility] 1.2.8 40.114 [id number] Univers 11:58:29 12:13:29 Visit [place] Pom[place] 350.1.13.10 ity of [place] [phone] [facility] 353 [facility] 2021-03-20 2021-03-20 Telephone [facility] 1.2.275.006 [id number] Univers 00:00:00 00:00:00 [place] CAM[place] 350.1.13.10 ity of [place].2.[place] PROFESSIO [phone] Or dic[address] 2021-03-15 2021-03-15 Outpatient Joan [facility] [id number] Univers 09:15:00 09:15:00 JOSE itjake of [facility] 2021-03-15 2021-03-15 Outpatient Joan [facility] [id number] Univers 09:15:00 09:15:00 JOSE ity of [facility] 2021-03-15 2021-03-15 Cafeteria Operator Andre Osei Lab Main [facility] 1.2.8 40.114 [id number] Univers 08:14:37 08:29:37 Visit Jose Villa ROSI 350.1.13. 10 ity of [facility] 4.2.7.2.[place] [phone] Or dical NAL 353 [facility] 2021-03-15 2021-03-15 Orders Doctor JOHANN 1.2.840.114 [id number] Univers 00:00:00 00:00:00 Only Unassigned, MIKE 350.1.13.10 ity of [place] [facility] 4.2.7.2.686 Babak as [phone] [facility] [address] [place] 2021-03-15 2021-03-15 [place] [facility] 1.2.222.271 [id number] Univers 00:00:00 00:00:00 [place] ARANDA 350.1.13.10 ity of [place] [phone] Or dical NAL 059 [facility] 2021-03-07 2021-03-07 Transition Franco DONNYYandy 1.2.840.114 [id number] Univers 00:00:00 00:00:00 of Care Georgie SAMANIEGO 350.1.13.10 it y of [place].2.[place] [phone] [facility] [address] 2021-03-01 2021-03-06 Inpatient X FABIOLA [facility] BERENICE [id number] Univers 11:31:00 15:17:00 CALEB perez of [facility] 2021-03-01 2021-03-06 Hospital Jamie Deng [facility] 1.2.840.1 14 [id number] Univers 11:31:00 15:17:00 Encounter Caleb Hicks 350.1.13.10 ity of [facility] 4.2.7.2.[place] [id number] [facility] [address] 2021-03-01 2021-03-01 Outpatient X FABIOLA, [facility] BERENICE [id number] Univers 11:31:00 11:31:00 CALEBEL perez [facility] 2021-02-27 2021-02-27 Outpatient R SY, [facility] [id number] Univers 11:20:00 11:44:55 [place] perez o [facility] 2021-02-27 2021-02-27 Outpatient R SY, [facility] [id number] Univers 11:20:00 11:44:55 [place] perez o [facility] 2021-02-27 2021-02-27 Outpatient R SY, [facility] [id number] Univers 11:20:00 11:44:55 [place] perez o [facility] 2021-02-27 2021-02-27 Outpatient R SY, [facility] [id number] Univers 11:20:00 11:44:55 [place] jimenes [facility] 2021-02-27 2021-02-27 Office Sy, [facility] [id number] Univers 10:54:32 11:44:55 Visit [place] ROSI [id number] [id number] [id number] Or dical NAL 059 [facility] 2021-02-27 2021-02-27 Outpatient R SY, [facility] [id number] Univers 10:30:00 10:30:00 [place] jimenes [facility] 2021-02-27 2021-02-27 Outpatient R SY, [facility] [id number] Univers 10:30:00 10:30:00 [place] perez o [facility] 2021-02-27 2021-02-27 Cafeteria Operator Farnaz, [facility] 1.2.8 40.114 [id number] Univers 09:52:58 10:07:58 Visit [place] ROSI [id number] [id number] [id number] Or dical NAL 353 [facility] 2021-02-27 2021-02-27 Orders Doctor JOHANN [id number] Univers 00:00:00 00:00:00 Only Unassigned, MIKE [id number] ity of [place] [facility] 4.2.7.2.686 Babak as [id number] [address] 2021-02-27 2021-02-27 Telephone [facility] [id number] Univers 00:00:00 00:00:00 [place] ARANDA [id number] [facility] [id number] [id number] Or dical NAL 059 [facility] 2021-02-24 2021-02-24 Outpatient R COUNTS INCLUDE 234 [facility] AT [facility] [id number] Univers 10:45:00 10:45:00 [place] perez o [facility] 2021-02-24 2021-02-24 [facility] [id number] Univers 10:45:00 10:45:00 [place] perez o f [facility] 2021-02-24 2021-02-24 Cafeteria Operator Farnaz, Andre [facility] 1.2.8 40.114 [id number] Univers 09:17:46 09:32:46 Visit [place] Pompa 350.1.13.10 [facility] [facility] [place] [phone] Or dical NAL 353 [facility] 2021-02-24 2021-02-24 Telephone [facility] 1.2.019.201 [id number] Univers 00:00:00 00:00:00 [place] CAMPTON 350.1.13.10 it[place] of [place] [phone] Or dical NAL 059 [facility] 2021-02-24 2021-02-24 Telephone [facility] 1.2.624.139 [id number] Univers 00:00:00 00:00:00 [place] CAMPTON 350.1.13.10 it[place] [facility] [place] [phone] Or dical NAL 059 [facility] 2021-02-24 2021-02-24 Telephone [facility] 1.2.204.462 [id number] Univers 00:00:00 00:00:00 [place] ARANDA 350.1.13.10 it[place] of [place] [phone] Or dical NAL 059 [facility] 2021-02-15 2021-02-15 Cafeteria Operator Farnaz, Adc Lab Main [facility] 1.2.8 40.114 [id number] Univers 09:47:39 10:02:39 Visit [place] Pom[place] 350.1.13.10 it[place] [phone] Or dical NAL 353 [facility] 2021-02-15 2021-02-15 [facility] [id number] Univers 09:45:00 09:45:00 [place] perez o [facility] 2021-02-15 2021-02-15 Outpatient R [facility] [id number] Univers 09:45:00 09:45:00 [place] perez o [facility] 2021-02-15 2021-02-15 Orders Doctor JOHANN 1.2.840.114 [id number] Univers 00:00:00 00:00:00 Only Unassigned, MIKE 350.1.13.10 ity of [place] [facility] 4.2.7.2.686 Babak as [phone] [address] 2021-02-15 2021-02-15 Telephone [facility] 1.2.617.826 [id number] Univers 00:00:00 00:00:00 [place] ARANDA 350.1.13.10 [place] [facility] [place] [phone] Or dical NAL 059 [facility] 2021-02-10 2021-02-10 Transition ALESIA Gamez 1.2.840.114 [id number] Univers 00:00:00 00:00:00 of Care Georgie SAMANIEGO 350.1.13.10 it [place] [phone] [facility] [address] 2021-02-04 2021-02-09 Inpatient X MIGUEL [facility] BERENICE [id number] Univers 20:57:00 13:26:00 JENNIFER ity of [facility] 2021-02-04 2021-02-09 Hospital Drew Dengip [facility] 1.2.840.1 14 [id number] Univers 20:57:00 13:26:00 Encounter Wilber Flowers 350.1.13.10 ity of [place] 4.2.7.2.686 [facility] [phone] [facility] [address] 2021-01-02 2021-01-02 Cafeteria Operator Farnaz, Adc Lab Main [facility] 1.2.8 40.114 [id number] Univers 11:35:12 11:50:12 Visit [place] Pom[place] 350.1.13.10 ity of [place] [phone] Or dical formerly [facility] 353 [facility] 2021-01-02 2021-01-02 Outpatient R [facility] [id number] Univers 11:45:00 11:45:00 [place] perez o [facility] 2021-01-02 2021-01-02 Outpatient R SY, [facility] [id number] Univers 11:45:00 11:45:00 [place] perez o f [facility] 2021-01-02 2021-01-02 Orders Doctor JOHANN 1.2.840.114 [id number] Univers 00:00:00 00:00:00 Only Unassigned, MIKE 350.1.13.10 [place]y of [place] [facility] 4.2.7.2.686 Babak as [phone] [facility] [address] 2021-01-02 2021-01-02 Telephone Sy [facility] 1.2.655.371 [id number] Univers 00:00:00 00:00:00 [place] Aranda 350.1.13.10 [place] of [place] [phone] Or dical nal 059 [facility] 2021-01-02 2021-01-02 [facility] 1.2.840.114 [id number] Univers 00:00:00 00:00:00 [place] Campton 350.1.13.10 [place] of [place] [phone] [facility] nal 9 [facility] 2020-12-07 2020-12-07 Cafeteria Operator Farnaz, Adc Lab Main [facility] 1.2.8 40.114 [id number] Univers 08:05:37 08:20:37 Visit Sy Catrinajuan Rosi 350.1.13.10 it[place] of [place] [phone] [facility] 353 [facility] 2020-12-07 2020-12-07 Outpatient R [facility] [id number] Univers 08:00:00 08:00:00 [place] perez o [facility] 2020-12-07 2020-12-07 Outpatient R [facility] [id number] Univers 08:00:00 08:00:00 [place] perez o [facility] 2020-12-07 2020-12-07 Telephone [facility] 1.2.935.022 [id number] Univers 00:00:00 00:00:00 [place] Aranda 350.1.13.10 [place] of [place] [phone] [facility] nal [address] [place] [address] 2020-11-23 2020-11-23 Outpatient R [facility] [id number] Univers 13:37:45 23:59:00 [place] perez o [facility] 2020-11-23 2020-11-23 Outpatient R SY, [facility] [id number] Univers 13:37:45 23:59:00 [place] perez o [facility] 2020-11-14 2020-11-14 Outpatient R [facility] [id number] Univers 13:40:00 13:40:00 [place] jimenes [facility] 2020-10-12 2020-10-12 Outpatient R SY, [facility] [id number] Univers 08:00:00 08:00:00 [place] jimenes [facility] 2020-09-27 2020-09-27 Outpatient R SY, [facility] [id number] Univers 13:00:00 13:00:00 [place] jimenes [facility] 2020-09-22 2020-09-22 Outpatient R SY, [facility] [id number] Univers 09:30:00 09:30:00 [place] jimenes [facility] 2020-09-07 2020-09-07 Outpatient R SY, [facility] [id number] Univers 08:45:00 08:45:00 [place] jimenes [facility] 2020-08-19 2020-08-19 Outpatient R SY, [facility] [id number] Univers 08:45:00 08:45:00 [place] jimenes [facility] 2020-08-15 2020-08-15 Outpatient R SY, [facility] [id number] Univers 10:45:00 10:45:00 [facility] 2020-08-08 2020-08-08 Outpatient R SY, [facility] [id number] Univers 11:45:00 11:45:00 [facility] 2020-08-08 2020-08-08 Cafeteria Operator Andre Osei [facility] ..840.114 [id number] 11:14:44 11:29:44 Visit Lab Main Rosi 350.1.13.10 [place] 4.2.7.2.686 Professio [phone] nal 353 Building 2020-08-08 2020-08-08 Orders Doctor JOHANN 1.2.840.114 [id number] 00:00:00 00:00:00 Only Unassigned, MIKE 350.1.13.10 [place] [facility] 4.2.7.2.686 [phone] [id number] 2020-08-08 2020-08-08 Telephone Sy, [facility] 1.2.968.676 [id number] 00:00:00 00:00:00 Rogerzaheer [place] 350.1.13.10 [place] 4.2.7.2.686 Professio [phone] formerly [facility] 059 [facility] 2020-07-25 2020-07-25 Telephone [facility] 1.2.450.384 [id number] 00:00:00 00:00:00 [place] 350.1.13.10 [place] 4.2.7.2.[address] Professio [phone] 2020-07-20 2020-07-20 Outpatient R COUNTS INCLUDE 234 [facility] AT [facility] [id number] Univers 11:45:00 11:45:00 [place] jimenes [facility] 2020-07-20 2020-07-20 Cafeteria Operator Farnaz, [facility] 1.2.840.114 [id number] 10:37:03 10:52:03 Visit Lab Main [place] 350.1.13.10 [place] 4.2.7.2.686 Professio [phone] [address] 2020-07-20 2020-07-20 Orders Doctor JOHANN 1.2.840.114 [id number] 00:00:00 00:00:00 Only Unassigned, MIKE 350.1.13.10 [place] [facility] 4.2.7.2.686 [phone] [facility] 2020-07-20 2020-07-20 [facility] 1.2.454.292 [id number] 00:00:00 00:00:00 [place] Campton 350.1.13.10 [place] 4.2.7.2.686 Professio [phone] [address] 2020-07-13 2020-07-13 Outpatient R COUNTS INCLUDE 234 [facility] AT [facility] [id number] Univers 10:15:00 10:15:00 [place] jimenes [facility] 2020-07-13 2020-07-13 Cafeteria Operator Farnaz [facility] 1.2.840.114 [id number] 09:23:20 09:38:20 Visit Lab Main [place] 350.1.13.10 [place] 4.2.7.2.686 Professio [phone] [address] 2020-07-13 2020-07-13 Telephone [facility] 1.2.605.062 [id number] 00:00:00 00:00:00 Qiajuan [place] 350.1.13.10 [place] 4.2.7.2.686 Professio [phone] [address] 2020-06-19 2020-06-19 Telephone [facility] 1.2.445.203 [id number] 00:00:00 00:00:00 Qiamerzaheer [place] 350.1.13.10 [place] 4.2.7.2.686 Professio [phone] [address] 2020-06-17 2020-06-17 Cafeteria Operator Farnaz, [facility] 1.2.840.114 [id number] 09:22:55 09:37:55 Visit Lab Main [place] 350.1.13.10 [place] 4.2.7.2.686 Professio [phone] [address] 2020-06-17 2020-06-17 Outpatient R [facility] [id number] Univers 09:30:00 09:30:00 [place] perez o [facility] 2020-06-08 2020-06-08 Telephone [facility] 12.542.001 [id number] 00:00:00 00:00:00 Rogerzaheer [place] 350.1.13.10 [place] 4.2.7.2.686 Professio [phone] [address] 2020-06-07 2020-06-07 Cafeteria Operator Farnaz, [facility] 12.840.114 [id number] 08:57:47 09:12:47 Visit Lab Main [place] 350.1.13.10 [place] 4.2.7.2.686 Professio [phone] [address] 2020-06-07 2020-06-07 Outpatient R [facility] [id number] Univers 09:00:00 09:00:00 [place] perez o 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 [facility] 1.2.840.114 [id number] 11:09:17 11:24:17 Visit Lab Main [place] 350.1.13.10 [place] 4.2.7.2.686 Professio [phone] formerly [facility] 353 [facility] 2020-05-16 2020-05-16 Orders Doctor JOHANN 1.2.840.114 [id number] 00:00:00 00:00:00 Only Unassigned, MIKE 350.1.13.10 [place] [facility] 4.2.7.2.686 [id number] [id number] 2020-05-16 2020-05-16 Telephone [facility] 1.2.268.469 [id number] 00:00:00 00:00:00 Catrinamerzaheer [place] 350.1.13.10 [place] 4.2.7.2.686 Professio [phone] formerly [facility] 059 [facility] 2020-05-11 2020-05-11 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686 Professio [phone] nal [address] [place] [address] 2020-05-11 2020-05-11 Telephone [facility] 1.2.526.823 [id number] 00:00:00 00:00:00 [place] Cam[place] 350.1.13.10 [place] 4.2.7.2.686 Professio [phone] [address] 2020-05-04 2020-05-04 Telephone [facility] 1.2.498.395 [id number] 00:00:00 00:00:00 [place] Aranda 350.1.13.10 [place] 4.2.7.2.686 Professio [phone] [address] 2020-05-03 2020-05-03 Outpatient R [facility] [id number] Univers 11:30:00 11:30:00 [place] perez [facility] 2020-05-03 2020-05-03 [facility] 1.2.840.114 [id number] 10:05:00 10:20:00 Visit Lab Main [place] 350.1.13.10 [place] 4.2.7.2.686 Professio [phone] [address] 2020-05-03 2020-05-03 Orders Doctor JOHANN 1.2.840.114 [id number] 00:00:00 00:00:00 Only Unassigned, MIKE 350.1.13.10 [place] [facility] 4.2.7.2.686 [id number] [id number] 2020-04-27 2020-04-27 [facility] 1.2.840.114 [id number] 08:24:03 08:39:03 Visit Lab Main [place] 350.1.13.10 [place] 4.2.7.2.686 Professio [phone] [address] 2020-04-27 2020-04-27 Outpatient R [facility] [id number] Univers 08:30:00 08:30:00 [place] perez [facility] 2020-04-27 2020-04-27 Telephone [facility] 1.2.200.541 [id number] 00:00:00 00:00:00 [place] Aranda 350.1.13.10 [place] 4.2.7.2.686 Professio [phone] nal 059 [facility] 2020-04-20 2020-04-20 Refill Sy, [facility] 1.2.840.114 [id number] 00:00:00 00:00:00 [place] Aranda 350.1.13.10 [place] 4.2.7.2.686 Professio [phone] [address] 2020-04-01 2020-04-01 Outpatient R IZQUIERDO, [facility] [id number] Univers 10:15:00 10:15:00 NICK ana [facility] 2020-03-29 2020-03-29 Office Sy, [facility] 1.2.840.114 [id number] 14:32:40 15:25:41 Visit [place] Aranda 350.1.13.10 [place] 4.2.7.2.686 Professio [phone] [address] 2020-03-29 2020-03-29 Outpatient R SY, [facility] [id number] Univers 14:40:00 14:40:00 [place] perez o [facility] 2020-03-22 2020-03-22 Outpatient R SY, [facility] [id number] Univers 15:30:00 15:30:00 [place] perez o [facility] 2020-03-15 2020-03-15 Outpatient R SY, [facility] [id number] Univers 11:15:00 11:15:00 [place] scotty o [facility] 2020-02-24 2020-02-24 Outpatient R SY, [facility] [id number] Univers 08:40:00 08:40:00 [place] scotty o [facility] 2020-02-17 2020-02-17 Outpatient R SY, [facility] [id number] Univers 09:15:00 09:15:00 [place] scotty o [facility] 2020-01-11 2020-01-11 Outpatient R SY, [facility] [id number] Univers 12:45:00 12:45:00 [place] ity o [facility] 2019-12-17 2019-12-17 Outpatient R SY, [facility] [id number] Univers 11:00:00 11:00:00 [place] ity o [facility] 2019-11-26 2019-11-26 Outpatient R SY, [facility] [id number] Univers 12:45:00 12:45:00 QIAJUAN ity o [facility] 2019-10-30 2019-10-30 Outpatient R RADIOLOGY [facility] [id number] Univers 00:00:00 00:00:00 y [facility] 2019-10-20 2019-10-20 Outpatient R MCDERMOTTALICJA [facility] [id number] Univers 09:30:00 09:30:00 [facility] 2019-09-30 2019-09-30 Outpatient R SY, [facility] [id number] Univers 08:30:00 08:30:00 [place] ity o [facility] 2019-09-08 2019-09-08 Outpatient R SY, [facility] [id number] Univers 15:20:00 15:20:00 [place] scotty o [facility] 2019-09-03 2019-09-03 Outpatient R SY, [facility] [id number] Univers 09:00:00 09:00:00 [place] scotty o [facility] 2019-07-24 2019-07-24 Outpatient R SY, [facility] [id number] Univers 11:45:00 11:45:00 [place] ity o [facility] 2019-06-22 2019-06-22 Outpatient R SY, [facility] [id number] Univers 13:30:00 13:30:00 QIAJUAN ity o [facility] Results This patient has no known results.
[2022-05-17] MEDS ORDERED: FENTANYL CITR 100 MCG/2 ML ONE (21:52)
[2022-05-17 22:21] LABS: Absolute Lymphocytes (CBC) 1.1 K/uL (0.7-4.9); Hematocrit 24.6 % (36.0-45.0); Lymphocytes % 9.6 % (15.3-44.8); MCV 94.4 fL (80-100); MPV 8.6 fL (7.6-11.3); RBC Red Blood Cell Count 2.61 M/uL (3.86-4.86)
[2022-05-17 22:46] LABS: Urine Blood 3+ (Negative); Urine Glucose Negative (Negative); Urine Protein 1+ (Negative); Urine pH 5.5 (5.0-7.0)
[2022-05-17 22:56] LABS: Albumin 3.3 g/dL (3.4-5.0); Bilirubin Total 0.6 mg/dL (0.2-1.0); Potassium 3.6 mmol/L (3.5-5.1); Protein, Total 6.6 g/dL (6.4-8.2); Troponin High Sensitivity 7.6 pg/mL (<58.9)
[2022-05-17 23:10] LABS: Urine Bacteria <20 /HPF (<20); Urine Mucus Slight /HPF (None Seen); Urine RBC >50 /HPF (None Seen); Urine WBC Clump Rare /HPF (None Seen)
[2022-05-17 23:26] LABS: Protime INR 22.92
[2022-05-18] MEDS ORDERED: FENTANYL CITR 100 MCG/2 ML ONE (00:37)
[2022-05-18] MEDS ORDERED: VITAMIN K (ADULT) 10 MG/ML ONE (00:37)
--- NOTE | 2022-05-18 01:13 | EDPHYS ---
Physician Documentation [facility] Name: Michelle Saavedra Age: 66 yrs Sex: Female : 1955 Arrival Date: 05/17/2022 Time: 21:06 Bed 16 Private MD: ED Physician Eugene Dooley HPI: 05/18 02:12 This 66 yrs old Female presents to ER via Wheelchair with complaints of Chest rt Pain, Abdominal Pain, Jaw Pain. 02:12 Patient presents to the ED with multiple complaints. Patient was seen here several days rt ago after a fall in which she hit her head, CT scans were unremarkable at that time. Patient noted to be on Coumadin. She states that she has had worsening bruising, pain to her jaw and states that it is difficult for her to open her mouth to take pills. The patient also complains of a chest pain, abdominal pain. Denies nausea, vomiting. Denies other acute complaints at this time. Symptoms are severe in severity, no other aggravating or alleviating factors.. Historical: - Allergies: 05/17 21:18 Morphine; kd3 - Home Meds: 21:18 Coumadin 1 mg Oral tab 1 tab once daily [Active]; kd3 - Immunization history:: Adult Immunizations up to date. - Social history:: Smoking status: Patient denies any tobacco usage or history of. - Family history:: not pertinent. ROS: 05/18 02:12 Constitutional: Negative for fever, chills, and weight loss, Eyes: Negative for injury, rt pain, redness, and discharge, Respiratory: Negative for shortness of breath, cough, wheezing, and pleuritic chest pain, MS/Extremity: Negative for injury and deformity, Skin: Negative for injury, rash, and discoloration, Neuro: Negative for headache, weakness, numbness, tingling, and seizure, Psych: Negative for depression, anxiety, suicide ideation, homicidal ideation, and hallucinations. ENT: Positive for Pain, difficulty swallowing. Neck: Positive for Pain, bruising. Cardiovascular: Positive for chest pain. Abdomen/GI: Positive for abdominal pain. Exam: 02:12 Constitutional: This is a well developed, well nourished patient who is awake, alert, rt and in no acute distress. Head/Face: Normocephalic, atraumatic. Chest/axilla: Normal chest wall appearance and motion. Nontender with no deformity. No lesions are appreciated. Cardiovascular: Regular rate and rhythm with a normal S1 and S2. No gallops, murmurs, or rubs. Normal PMI, no JVD. No pulse deficits. Respiratory: Lungs have equal breath sounds bilaterally, clear to auscultation and percussion. No rales, rhonchi or wheezes noted. No increased work of breathing, no retractions or nasal flaring. Skin: Warm, dry with normal turgor. Normal color with no rashes, no lesions, and no evidence of cellulitis. MS/ Extremity: Pulses equal, no cyanosis. Neurovascular intact. Full, normal range of motion. Neuro: Awake and alert, GCS 15, oriented to person, place, time, and situation. Cranial nerves II-XII grossly intact. Motor strength 5/5 in all extremities. Sensory grossly intact. Cerebellar exam normal. Normal gait. Psych: Awake, alert, with orientation to person, place and time. Behavior, mood, and affect are within normal limits. 02:12 ENT: No posterior pharyngeal erythema, uvula is midline, no stridor. 02:12 Neck: Bruising noted along right anterior neck. 02:12 Abdomen/GI: Moderate tenderness diffusely with guarding, no rebound, distention. Vital Signs: 05/17 21:10 BP 154 / 54; Pulse 74; Resp 19; Temp 97.7(O); Pulse Ox 99% on R/A; Weight 45.81 kg; kd3 Height 5 ft. 3 in. (160.02 cm); Pain 10/10; 22:30 BP 111 / 55; Pulse 72; Resp 14; Pulse Ox 100% ; pf1 23:30 BP 122 / 63; Pulse 95; Resp 20; Pulse Ox 100% on R/A; pf1 05/18 00:30 BP 118 / 59; Pulse 76; Resp 18; Pulse Ox 100% on R/A; pf1 01:30 BP 110 / 50; Pulse 75; Resp 19; Pulse Ox 100% on R/A; Pain 7/10; pf1 02:30 BP 96 / 58; Pulse 77; Resp 18; Temp 98; Pulse Ox 100% on R/A; Pain 7/10; pf1 03:30 BP 102 / 56; Pulse 82; Resp 20; Pulse Ox 100% on R/A; Pain 7/10; pf1 05/17 21:10 Body Mass Index 17.89 (45.81 kg, 160.02 cm) kd3 MDM: 05/17 21:34 Patient medically screened. rt 05/18 02:12 Differential diagnosis: Vascular injury, expansile mass, airway compromise. Data rt reviewed: vital signs, nurses notes, lab test result(s), EKG, radiologic studies. Consideration of Admission/Observation Patient was admitted/placed on observation. I considered the following discharge prescriptions or medication management in the emergency department Medications were administered in the Emergency Department. See MAR. Independent interpretation of the following test(s) in the Emergency Department CT Scan: My interpretation is No airway compromise, obvious vascular injury. 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 05/17 21:44 Order name: CBC with Diff; Complete Time: 23:26 rt 05/17 21:44 Order name: CMP; Complete Time: 23:26 rt 05/17 21:44 Order name: PT-INR; Complete Time: 23:26 rt 05/17 21:44 Order name: Troponin High Sensitivity; Complete Time: 23:26 rt 05/17 21:44 Order name: Lipase; Complete Time: 23:26 rt 05/17 22:46 Order name: Urine Dipstick-Ancillary; Complete Time: 23:26 EDMS 05/17 22:46 Order name: Urine Culture ll3 05/17 22:46 Order name: Urine Microscopic Only; Complete Time: 23:26 ll3 05/17 23:52 Order name: Lactate w/ 2H reflex if indic.; Complete Time: 01:54 rt 05/18 01:20 Order name: SARS RAPID; Complete Time: 01:54 ll3 05/18 03:35 Order name: CBC with Automated Diff; Complete Time: 03:37 EDMS 05/18 03:36 Order name: Protime (+INR); Complete Time: 03:37 EDMS 05/18 03:38 Order name: Basic Metabolic Panel; Complete Time: 03:41 EDMS 05/18 03:38 Order name: Troponin High Sensitivity; Complete Time: 03:41 EDMS 05/17 21:44 Order name: EKG; Complete Time: 21:45 rt 05/17 21:44 Order name: EKG - Nurse/Tech; Complete Time: 22:23 rt 05/17 21:44 Order name: Neck Angio CT rt 05/17 21:44 Order name: CT Abd/Pelvis - IV Contrast Only rt 05/17 21:44 Order name: Urine Dipstick-Ancillary (obtain specimen); Complete Time: 23:01 rt 05/18 05:43 Order name: Type and Screen EDMS Administered Medications: 05/17 22:05 Drug: fentaNYL (PF) 100 mcg Route: IVP; Site: left antecubital; pf1 22:33 Follow up: Response: No adverse reaction; Pain is decreased; RASS: Alert and Calm (0) pf1 05/18 00:40 Drug: Vitamin K1 (phytonadione) 10 mg Route: IM; Site: left deltoid; ll3 01:26 Follow up: Response: No adverse reaction pf1 00:48 Drug: fentaNYL (PF) 100 mcg Route: IVP; Site: left antecubital; ll3 01:25 Follow up: Response: No adverse reaction; Pain is decreased; RASS: Alert and Calm (0) pf1 Disposition: 02:12 Critical Care:. rt Disposition Summary: 05/18/22 01:12 Hospitalization Ordered Hospitalization Status: Observation rt Provider: James Hartman rt Condition: Stable rt Problem: an acute exacerbation rt Symptoms: are unchanged rt Bed/Room Type: Standard rt Location: [facility] ER HOLD(05/18/22 02:23) cg Room Assignment: ERHOLD-(05/18/22 02:23) cg Diagnosis - Supratherapeutic INR rt - Contusion of neck rt - Intractable abdominal pain rt Forms: - Medication Reconciliation Form rt - SBAR form rt Critical care time excluding procedures: 02:12 Critical care time: Bedside Care: 30 minutes, Consultation: 10 minutes. Total time: 40 rt minutes Signatures: Dispatcher [employer] EDMS Farshad Roman FNP-C RN FAMILY-Cla1 Merary Dinero RN RN cg Jaimie Thompson RN RN natalia3 Radha Solorzano RN RN kd3 Eugene Dooley MD MD rt Babita schneider RN RN pf1 Corrections: (The following items were deleted from the chart) 01:12 Telemetry/MedSurg (observation) rt cg 01:12 rt cg
--- NOTE | 2022-05-18 01:13 | ER ---
Nurse's Notes [facility] Name: Michelle Saavedra Age: 66 yrs Sex: Female : 1955 Arrival Date: 05/17/2022 Time: 21:06 Bed 16 Private MD: Diagnosis: Supratherapeutic INR;Contusion of neck;Intractable abdominal pain Presentation: 05/17 21:16 Chief complaint: Patient states: My pain started last night. I wasn't doing anything in kd3 particular and my stomach hurts too. I have a sore throat and i can hardly open my mouth. My stomach hurts just as bad as my chest, maybe even worse but i am feeling pressure in my chest so i figured i had better come in. Coronavirus screen: Vaccine status: Patient reports being unvaccinated. Ebola Screen: No symptoms or risks identified at this time. Initial Sepsis Screen: Does the patient meet any 2 criteria? No. Patient's initial sepsis screen is negative. Does the patient have a suspected source of infection? No. Patient's initial sepsis screen is negative. Risk Assessment: Do you want to hurt yourself or someone else? Patient reports no desire to harm self or others. Onset of symptoms was May 17, 2022. 21:16 Method Of Arrival: Wheelchair kd3 21:16 Acuity: JAKUB 3 kd3 Triage Assessment: 21:18 General: Appears uncomfortable, unkempt, malnourished, Behavior is anxious. Pain: kd3 Complains of pain in chest, abdomen and neck. Cardiovascular: Patient's skin is warm and dry. Rhythm is regular. Historical: - Allergies: 21:18 Morphine; kd3 - Home Meds: 21:18 Coumadin 1 mg Oral tab 1 tab once daily [Active]; kd3 - Immunization history:: Adult Immunizations up to date. - Social history:: Smoking status: Patient denies any tobacco usage or history of. - Family history:: not pertinent. Screenin/03 01:30 [facility] ED Fall Risk Assessment (Adult) History of falling in the last 3 months, pf1 including since admission Yes- single mechanical fall (1 pt) Confusion or Disorientation No (0 pts) Intoxicated or Sedated No (0 pts) Impaired Gait No (0 pts) Mobility Assist Device Used No (0 pt) Altered Elimination No (0 pt) Score/Fall Risk Level 0 - 2 = Low Risk Oriented to surroundings, Maintained a safe environment, Educated pt \T\ family on fall prevention, incl call for assistance when getting out of bed, Assessed \T\ reinforced patient's understanding of fall precautions, Provided non-skid footwear, Hourly rounding (assess needs \T\ fall precautionary measures) done, Used ambulatory aids as needed (educated on \T\ assisted with), Used gait belt as appropriate. Abuse screen: Denies threats or abuse. Nutritional screening: No deficits noted. Tuberculosis screening: No symptoms or risk factors identified. Assessment: 05/17 21:30 General: Appears in no apparent distress. uncomfortable, well groomed, well developed, pf1 Behavior is calm, cooperative, appropriate for age, quiet. 21:30 Pain: Complains of pain in abdomen and chest Pain currently is 10 out of 10 on a pain pf1 scale. Pain began Last night. Neuro: No deficits noted. Level of Consciousness is awake, alert, obeys commands, Oriented to person, place, time, situation. Cardiovascular: Capillary refill < 3 seconds Patient's skin is warm and dry. Chest pain quality is pressure. Respiratory: No deficits noted. Airway is patent Trachea midline Respiratory effort is even, unlabored, Respiratory pattern is regular, symmetrical, Breath sounds are clear bilaterally. GI: Abdomen is flat, non-distended, Bowel sounds present X 4 quads. Reports lower abdominal pain, upper abdominal pain. : No deficits noted. No signs and/or symptoms were reported regarding the genitourinary system. EENT: No deficits noted. No signs and/or symptoms were reported regarding the EENT system. 21:30 Pain: Pain does not radiate. pf1 22:30 Reassessment: Patient appears in no apparent distress at this time. Patient and/or pf1 family updated on plan of care and expected duration. Pain level reassessed. Patient is alert, oriented x 3, equal unlabored respirations, skin warm/dry/pink. Patient states symptoms have improved. 23:30 Reassessment: Patient appears in no apparent distress at this time. Patient and/or pf1 family updated on plan of care and expected duration. Pain level reassessed. Patient is alert, oriented x 3, equal unlabored respirations, skin warm/dry/pink. Patient states feeling better. Patient states symptoms have improved. 05/18 00:30 Reassessment: Patient appears in no apparent distress at this time. Patient and/or pf1 family updated on plan of care and expected duration. Pain level reassessed. Patient is alert, oriented x 3, equal unlabored respirations, skin warm/dry/pink. Patient states feeling better. Patient states symptoms have improved. 01:31 Reassessment: Patient appears in no apparent distress at this time. Patient and/or pf1 family updated on plan of care and expected duration. Pain level reassessed. Patient is alert, oriented x 3, equal unlabored respirations, skin warm/dry/pink. Patient states feeling better. Patient states symptoms have improved. patient verbalized admission instructions understanding.. 04:25 General:. tw5 04:25 General: Farshad MARCOS initiated transfer to [facility]. Spoke with zach Valentino at 0424. . Vital Signs: 05/17 21:10 BP 154 / 54; Pulse 74; Resp 19; Temp 97.7(O); Pulse Ox 99% on R/A; Weight 45.81 kg; kd3 Height 5 ft. 3 in. (160.02 cm); Pain 10/10; 22:30 BP 111 / 55; Pulse 72; Resp 14; Pulse Ox 100% ; pf1 23:30 BP 122 / 63; Pulse 95; Resp 20; Pulse Ox 100% on R/A; pf1 / 00:30 BP 118 / 59; Pulse 76; Resp 18; Pulse Ox 100% on R/A; pf1 01:30 BP 110 / 50; Pulse 75; Resp 19; Pulse Ox 100% on R/A; Pain 7/10; pf1 02:30 BP 96 / 58; Pulse 77; Resp 18; Temp 98; Pulse Ox 100% on R/A; Pain 7/10; pf1 03:30 BP 102 / 56; Pulse 82; Resp 20; Pulse Ox 100% on R/A; Pain 7/10; pf1 02/02 21:10 Body Mass Index 17.89 (45.81 kg, 160.02 cm) kd3 ED Course: 05/17 21:06 Patient arrived in ED. as 21:18 Triage completed. kd3 21:18 Arm band placed on left wrist. kd3 21:28 Eugene Dooley MD is Attending Physician. rt 21:30 Client placed on continuous cardiac and pulse oximetry monitoring. NIBP monitoring pf1 applied. school lunch monitor on. 21:45 Babita schneider, PHILLIP is Primary Nurse. pf1 21:55 Missed attempt(s): 20 gauge in right antecubital area. pf1 22:00 Patient has correct armband on for positive identification. Placed in gown. Bed in low pf1 position. Call light in reach. Side rails up X2. 22:00 No provider procedures requiring assistance completed. Inserted saline lock: 22 gauge pf1 in left antecubital area, using aseptic technique. Blood collected. 22:23 Troponin High Sensitivity Sent. pf1 22:23 PT-INR Sent. pf1 22:23 CMP Sent. pf1 22:23 Lipase Sent. pf1 23:[address] In Process Unspecified. EDMS 23:32 CT Abd/Pelvis - IV Contrast Only In Process Unspecified. EDMS 02 00:00 Patient maintains SpO2 saturation greater than 95% on room air. pf1 01:11 James Hartman MD is Hospitalizing Provider. rt 01:25 Lactate w/ 2H reflex if indic. Sent. pf1 02:23 Patient admitted, IV remains in place. pf1 04:58 Inserted saline lock: 22 gauge in left antecubital area, using aseptic technique. oe 05:01 Pt was accepted for transfer to [facility] by Dr Graham. kd3 Accepting Rep Chicho Cleary [phone]. pt will go to [address] [place] [address] bed 10. Administered Medications: 05/17 22:05 Drug: fentaNYL (PF) 100 mcg Route: IVP; Site: left antecubital; pf1 22:33 Follow up: Response: No adverse reaction; Pain is decreased; RASS: Alert and Calm (0) pf1 05/18 00:40 Drug: Vitamin K1 (phytonadione) 10 mg Route: IM; Site: left deltoid; ll3 01:26 Follow up: Response: No adverse reaction pf1 00:48 Drug: fentaNYL (PF) 100 mcg Route: IVP; Site: left antecubital; ll3 01:25 Follow up: Response: No adverse reaction; Pain is decreased; RASS: Alert and Calm (0) pf1 Medication: 05/17 22:00 VIS not applicable for this client. pf1 Outcome: 05/18 01:12 Decision to Hospitalize by Provider. rt 02:23 Condition: improved pf1 02:23 Admitted to ER Hold. Please see [facility] for further documentation. pf1 02:23 Instructed on the need for admit, Demonstrated understanding of instructions. 07:47 Patient left the ED. eb Signatures: Dispatcher [employer] EDMS Eunice Villalobos Orlando oe Botello, Elizabeth eb Wood, Tiffany 5 Jaimie Thompson RN RN ll3 Radha Solorzano RN RN kd3 Eugene Dooley MD MD rt Babita schneider RN RN pf1 Corrections: (The following items were deleted from the chart) 05/17 22:22 22:22 Missed attempt(s): 20 gauge in right antecubital area. pf1 pf1
[2022-05-18 01:51] LABS: SARS-CoV-2 Antigen Rapid Res Negative (Negative)
--- NOTE | 2022-05-18 02:29 | P.HP ---
Certification for Inpatient Patient admitted to: Inpatient With expected LOS: >2 Midnights Patient will require the following post-hospital care: None Practitioner: I am a practitioner with admitting privileges, knowledge of patient current condition, hospital course, and medical plan of care. Services: Services provided to patient in accordance with Admission requirements found in Title 42 Section 412.3 of the Code of Federal Regulations <Farshad Roman - Last Filed: 05/18/22 05:18> Patient History Date of Service: 05/18/22 History of Present Illness: 66-year-old female with history of atrial fibrillation/aortic valve replacement on warfarin, hyperlipidemia, chronic diastolic congestive heart failure, hypertension presents to the emergency department for chest pain, abdominal pain. She is noted to have significant bruising to the right neck/face after a fall on Saturday. She was evaluated in the emergency department her labs were significant for mild leukocytosis with a white blood cell count of 11.4 hemoglobin of 8.0 which is similar to patient's baseline her INR was markedly elevated 22.9 to. Patient reports that she takes 1 mg of warfarin 3-4 times a week and 2 mg of warfarin the other days of the week although she does not keep track of which days she takes each dose, she reports her last INR was about a week and a half ago outpatient and the value was 2.6 per her report. She sees Dr. Dan who helps manage her Coumadin. She denies any changes in her medications or diet recently. There is no signs of active bleeding noted, she was given IM vitamin K in the emergency department. She had CT of the neck angiogram performed in the emergency department which showed partial evaluation of aneurysmal dilatation of the aortic arch measuring approximately 3.4 cm which was present on prior exam, aneurysmal dilatation of the origin of the great vessels, no cervical flow-limiting stenosis, mild calcification bilateral ca rotid bulbs. She has CT of the abdomen and pelvis performed as well with contrast which showed abnormal mucosal thickening distal small bowel loops with edema of the distal mesenteric root findings could correspond to enteritis, less likely Crohn's disease and remote possibility of less likely mesenteric ischemia. Atherosclerotic disease of the abdominal aorta with minimal atheromatous plaque at the ostium superior mesenteric artery, celiac trunk and inferior mesenteric artery. Small amount of free fluid posterior cul-de-sac. Cholelithiasis, small hiatal hernia, superior compression deformity L1. Lactate was obtained in the emergency department which was not elevated bili of 1.5. ED provider wishes to admit patient for further evaluation and management of supratherapeutic INR, chest pain, abdominal pain with possible enteritis/UTI. - Past Medical/Surgical History Diabetic: No -: Atrial fibrillation/mechanical aortic valve on warfarin -: depression -: HTN -: Chronic diastolic congestive heart failure -: GERD -: mechanical aortic valve -: palpitations -: Thoracic aortic aneurysm -: Chronic diastolic congestive heart failure -: HLD -: anemia -: aortic valve replacement -: cardioversion -: tubal ligation Psychosocial/ Personal History: Patient lives at home with her children - Family History Brother -: Heart disease, Cancer Notes: heart attack Mother -: Heart disease, Diabetes Notes: of heart attack Father -: Heart disease Notes: of heart attack Sister -: Heart disease, Diabetes, Cancer Notes: sisters x2 - DM. sister x1 - heart attack. sister- lung cancer - Social History Smoking Status: Never smoker Alcohol use: Yes CD- Drugs: No Caffeine use: No Place of Residence: Home <Farshad Roman - Last Filed: 05/18/22 05:18> Date of Service: 05/18/22 <James Hartman - Last Filed: 05/18/22 09:50> Allergies morphine Allergy (Intermediate, Verified 12/25/21 01:15) panic ATTACK; shaking Home Medications: Alendronate Sodium 70 mg PO EVERY 7TH DAY 12/25/21 Atorvastatin Calcium 40 mg PO DAILY 12/25/21 Furosemide [Lasix*] 20 mg PO DAILY 12/25/21 Gabapentin 300 mg PO BID 12/25/21 Metoprolol Tartrate [Lopressor*] 12.5 mg PO BID 12/25/21 Pantoprazole [Protonix Tab*] 40 mg PO BID 12/25/21 Zolpidem Tartrate [Ambien*] 10 mg PO BEDTIME 12/25/21 traMADol HCL [Ultram*] 50 mg PO TID PRN #12 tab 12/25/21 Aspirin [Aspirin EC 81 MG] 81 mg PO DAILY #30 tab 03/28/22 Ensure Enlive 237 ml PO BID #30 can 03/28/22 Warfarin Sodium 1 mg PO DAILY #30 tab 12/14/22 Review of Systems 10-point ROS is otherwise unremarkable Cardiovascular: Chest Pain Gastrointestinal: Abdominal Pain <Farshad Roman - Last Filed: 05/18/22 05:18> Physical Examination - Physical Exam General: Alert, In no apparent distress, Oriented x3 HEENT: Atraumatic, PERRLA, Mucous membr. moist/pink, EOMI, Sclerae nonicteric Neck: Supple, 2+ carotid pulse no bruit, No LAD, Without JVD or thyroid abnormality Respiratory: Clear to auscultation bilaterally, Normal air movement Cardiovascular: Regular rate/rhythm, Normal S1 S2 Gastrointestinal: Normal bowel sounds, Tenderness (Mild lower abdominal tenderness) Musculoskeletal: No tenderness Integumentary: Other (Ecchymosis of right jaw, right neck) Neurological: Normal speech, Normal strength at 5/5 x4 extr, Normal tone, Normal affect Lymphatics: No axilla or inguinal lymphadenopathy - Studies Laboratory Data (last 24 hrs) 05/17/22 22:54: PT 252.1 H, INR 22.92 H* 05/17/22 22:05: Sodium 139, Potassium 3.6, BUN 12, Creatinine 1.13 H, Glucose 134 H, Total Bilirubin 0.6, AST 21, ALT 22, Alkaline Phosphatase 72, Lipase 72 L 05/17/22 22:05: WBC 11.40 H, Hgb 8.0 L, Hct 24.6 L, Plt Count 203 <Farshad Roman - Last Filed: 05/18/22 05:18> - Studies Laboratory Data (last 24 hrs) 05/17/22 22:54: PT 252.1 H, INR 22.92 H* 05/17/22 22:05: Sodium 139, Potassium 3.6, BUN 12, Creatinine 1.13 H, Glucose 134 H, Total Bilirubin 0.6, AST 21, ALT 22, Alkaline Phosphatase 72, Lipase 72 L 05/17/22 22:05: WBC 11.40 H, Hgb 8.0 L, Hct 24.6 L, Plt Count 203 <James Hartman - Last Filed: 05/18/22 09:50> Assessment and Plan - Plan Assessment: Supratherapeutic INR without bleeding History of atrial fibrillation/aortic valve replacement on chronic anticoagulation with warfarin History of thoracic aortic aneurysm-stable with previous repair in 1989 during valve replacement Chest pain rule out ACS Abdominal pain/tenderness Hypertension Hyperlipidemia Plan: Supratherapeutic INR without bleeding: Markedly elevated INR, patient denies change in her dose of warfarin, initiation of new medications or changes in her diet recently. She was given a dose of vitamin K10 mg IM in emergency department, will trend INR daily and hold warfarin, monitor other drugs given in hospital closely for effects on INR/warfarin. Will order one unit FFP now given significantly elevated INR. History of atrial fibrillation/aortic valve replacement on chronic anticoagulation with warfarin: EKG with normal sinus rhythm at this time, currently holding warfarin given markedly supratherapeutic INR. Monitor on telemetry. Daily INR. History of thoracic aortic aneurysm-stable with previous repair in 1989 during valve replacement: These findings are stable from previous. Chest pain rule out ACS: Trend troponins, monitor on telemetry, cardiology consult in place. Patient with stress test in March 2022 which was negative. Appreciate further input from cardiology. Abdominal pain/tenderness: CT findings show abnormal mucosal thickening distal small bowel loops with edema of the distal mesenteric root findings could correspond to enteritis, less likely Crohn's disease and remote possibility of less likely mesenteric ischemia, lactate normal 1.5. Patient with primarily lower abdominal pain. Hypertension: Continue home medications Hyperlipidemia: Continue home medications. DVT PPX:none-markedly supratherapeutic INR, monitor INR daily. Code status: Full Discharge Plan: Home Plan to discharge in: Greater than 2 days - Advance Directives Does patient have a Living Will: No Does patient have a Durable POA for Healthcare: No - Code Status/Comfort Care Code Status Assessed: Yes (Full code) Critical Care: No Time Spent Managing Pts Care (In Minutes): 70 <Farshad Roman - Last Filed: 05/18/22 05:18> Physician Review: Patient Assessed, Agree with Above Assessment and Plan <James Hartman - Last Filed: 05/18/22 09:50>
[2022-05-18] MEDS ORDERED: HYDROMORPHONE HCL 0.5 MG/0.5 ML INJ IV PRN (02:35)
[2022-05-18] MEDS ORDERED: ONDANSETRON 4 MG/2 ML VIAL IV PRN (02:35)
[2022-05-18 03:27] LABS: Lymphocytes % 9.8 % (15.3-44.8); MCV 94.7 fL (80-100); MPV 8.8 fL (7.6-11.3); RBC Red Blood Cell Count 2.22 M/uL (3.86-4.86)
[2022-05-18 03:35] LABS: Protime INR 22.07
[2022-05-18 03:38] LABS: Potassium 3.8 mmol/L (3.5-5.1); Troponin High Sensitivity 11.3 pg/mL (<58.9)
[2022-05-18 03:55] VITALS: BMI 17.9
[2022-05-18] MEDS ORDERED: NA CHLORIDE 0.9% 250 ML IV SCH ×2 (04:00)
[2022-05-18] MEDS ORDERED: NA CHLORIDE 0.9% 500 ML ONE (05:05)
--- NOTE | 2022-05-18 05:25 | P.DS ---
Admission Date: 05/18/22 Discharge Date: 05/18/22 Disposition: TRANSFER TO [facility] Discharge Condition: SERIOUS Brief History of Present Illness: 66-year-old female with history of atrial fibrillation/aortic valve replacement on warfarin, hyperlipidemia, chronic diastolic congestive heart failure, hypertension presents to the emergency department for chest pain, abdominal pain. She is noted to have significant bruising to the right neck/face after a fall on Saturday. She was evaluated in the emergency department her labs were significant for mild leukocytosis with a white blood cell count of 11.4 hemoglobin of 8.0 which is similar to patient's baseline her INR was markedly elevated 22.9 to. Patient reports that she takes 1 mg of warfarin 3-4 times a week and 2 mg of warfarin the other days of the week although she does not keep track of which days she takes each dose, she reports her last INR was about a week and a half ago outpatient and the value was 2.6 per her report. She sees Dr. Dan who helps manage her Coumadin. She denies any changes in her medications or diet recently. There is no signs of active bleeding noted, she was given IM vitamin K in the emergency department. She had CT of the neck angiogram performed in the emergency department which showed partial evaluation of aneurysmal dilatation of the aortic arch measuring approximately 3.4 cm which was present on prior exam, aneurysmal dilatation of the origin of the great vessels, no cervical flow-limiting stenosis, mild calcification bilateral carotid bulbs. She has CT of the abdomen and pelvis performed as well with contrast which showed abnormal mucosal thickening distal small bowel loops with edema of the distal mesenteric root findings could correspond to enteritis, less likely Crohn's disease and remote possibility of less likely mesenteric ischemia. Atherosclerotic disease of the abdominal aorta with minimal atheromatous plaque at the ostium superior mesenteric artery, celiac trunk and inferior mesenteric artery. Small amount of free fluid posterior cul-de-sac. Cholelithiasis, small hiatal hernia, superior compression deformity L1. Lactate was obtained in the emergency department which was not elevated bili of 1.5. ED provider wishes to admit patient for further evaluation and management of supratherapeutic INR, chest pain, abdominal pain with possible enteritis/UTI. Hospital Course: Patient was initially admitted for supratherapeutic INR, chest pain, abdominal pain without any bleeding noted, she was given vitamin K in the ER and FFP's were ordered given significantly elevated INR. Approximately 2 hours after admission patient had a bowel movement with melena, shortly thereafter her hemoglobin returned decreasing from 8.0-6.9. Given this finding and her severely elevated INR transfer was immediately initiated with [facility] ICU. She was graciously excepted by Dr. Graham the remittance clerk at [facility] ICU. She is in the process of receiving FFP, PRBC at this time. Vital signs are stable. Continue with further care at [facility]. General: Alert, In no apparent distress, Oriented x3 HEENT: Atraumatic, PERRLA, EOMI Neck: Supple, JVD not distended Respiratory: Clear to auscultation bilaterally, Normal air movement Cardiovascular: Regular rate/rhythm, Normal S1 S2 Capillary refill: <2 Seconds Gastrointestinal: Normal bowel sounds, Tenderness (Mild lower abd tenderness) Musculoskeletal: No tenderness Integumentary: No rashes Neurological: Normal speech, Normal tone, Normal affect Laboratory Data at Discharge: WBC 10.50 K/uL (4.3-10.9) 05/18/22 02:50 Hgb 6.9 g/dL (12.0-15.0) L* D 05/18/22 02:50 Hct 21.0 % (36.0-45.0) L 05/18/22 02:50 Plt Count 184 K/uL (152-406) 05/18/22 02:50 PT 242.8 SECONDS (9.5-12.5) H 05/18/22 02:50 INR 22.07 H* 05/18/22 02:50 Sodium 141 mmol/L (136-145) 05/18/22 02:50 Potassium 3.8 mmol/L (3.5-5.1) 05/18/22 02:50 BUN 13 mg/dL (7-18) 05/18/22 02:50 Creatinine 0.97 mg/dL (0.55-1.02) 05/18/22 02:50 Glucose 139 mg/dL (74-106) H 05/18/22 02:50 Total Bilirubin 0.6 mg/dL (0.2-1.0) 05/17/22 22:05 AST 21 U/L (15-37) 05/17/22 22:05 ALT 22 U/L (13-56) 05/17/22 22:05 Alkaline Phosphatase 72 U/L (45-117) 05/17/22 22:05 Lipase 72 U/L (73-393) L 05/17/22 22:05 Home Medications: Alendronate Sodium 70 mg PO EVERY 7TH DAY 12/25/21 Atorvastatin Calcium 40 mg PO DAILY 12/25/21 Furosemide [Lasix*] 20 mg PO DAILY 12/25/21 Gabapentin 300 mg PO BID 12/25/21 Metoprolol Tartrate [Lopressor*] 12.5 mg PO BID 12/25/21 Pantoprazole [Protonix Tab*] 40 mg PO BID 12/25/21 Zolpidem Tartrate [Ambien*] 10 mg PO BEDTIME 12/25/21 traMADol HCL [Ultram*] 50 mg PO TID PRN #12 tab 12/25/21 Aspirin [Aspirin EC 81 MG] 81 mg PO DAILY #30 tab 03/28/22 Ensure Enlive 237 ml PO BID #30 can 03/28/22 Warfarin Sodium 1 mg PO DAILY #30 tab 03/28/22 Diet: NPO Followup: Saurabh Dobson MD [Primary Care Provider] - Time spent managing pt's care (in minutes): 25
[2022-05-18 06:37] VITALS: BP 111/57; TEMP 98.2
[2022-05-18 08:13] VITALS: O2SAT 100
--- NOTE | 2022-05-18 10:19 | RAD REPORT ---
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 In addition multiplanar reformats in the coronal and sagittal plane were obtained and reviewed. This exam was performed according to our departmental dose-optimization protocol, which includes auto mated exposure control, adjustment of the mA and/or kV according to patient size and/or use of iterat ivon reconstruction technique. FINDINGS: The lung bases demonstrate to be clear. Sternotomy wires suggest previous aortic valvular replacement. There is a small hiatal hernia. The liver, pancreas, spleen and adrenal glands demonstrate to be unremarkable, no focal lesions are n oted. The gallbladder demonstrated presence of layering high density material corresponding to cholelithias is. No biliary duct dilatation. The kidneys demonstrate normal uptake of contrast media. No evidence for nephrolithiasis and/or hydro nephrosis. Grossly the unopacified stomach demonstrate to be within normal limits. There is abnormal abnormal mucosal thickening distal small bowel loops with edema of the distal mesen teric root on axial image 44/83-65/83, findings could correspond to enteritis, less likely Crohn's di sease and remote possibility of less likely mesenteric ischemia. The appendix was not visualized. T he left site colon is decompressed with no gross abnormalities. The urinary bladder demonstrate to be unremarkable. The uterus demonstrate to be within normal limi ts. There are no Masses. The aorta demonstrate diffuse atherosclerotic disease. There is atheromatous plaque formati on origin of the superior mesenteric artery no definitive significant stenosis. There is atherosclero tic disease origin of the inferior mesenteric artery. The celiac trunk demonstrate minimal atheromato us plaque with no definitive significant stenosis. There is no retroperitoneal lymphadenopathy. The re is small amount of free fluid posterior cul-de-sac. The bone windows demonstrate mild diffuse bony neutropenia. Degenerative disc disease at L5/S1. Super ior compression deformity at L1. IMPRESSION: Abnormal abnormal mucosal thickening distal small bowel loops with edema of the distal m esenteric root, findings could correspond to enteritis, less likely Crohn's disease and remote possib ility of less likely mesenteric ischemia. Atherosclerotic disease of the abdominal aorta with minimal atheromatous plaque at the ostium superio r mesenteric artery, celiac trunk and inferior mesenteric artery. Small amount of free fluid posterior cul-de-sac. Cholelithiasis. Small hiatal hernia. Superior compression deformity at L1. Electronically signed by: David Wilson MD 05/17/2022 11:47 PM TRACK REPAIRER HELPER Due to temporary technical issues with the PACS/Fluency reporting system, reports are being signed by the in house radiologists without review as a courtesy to insure prompt reporting. The interpreting radiologist is fully responsible for the content of the report.
--- NOTE | 2022-05-18 11:50 | RAD REPORT ---
EXAM DESCRIPTION: CT Angiography Neck With Intravenous Contrast CLINICAL HISTORY: The patient is 66 years old and is Female; hematoma, diff swallowing TECHNIQUE: Routine carotid CT angiography protocol was performed with intravenous contrast. Nascet criteria using the distal ICAs for comparison were used for evaluation of stenoses. This CT exam w as performed using one or more of the following dose reduction techniques: automated exposure contr ol, adjustment of the mA and/or kV according to patient size, and/or use of iterative reconstruction technique. MIP reconstructed images were created and reviewed. DLP: 759 mGy*cm COMPARISON: CT head and cervical spine dated 05/13/2022 and CTA chest dated 03/07/2020. FINDINGS: VASCULATURE: RIGHT COMMON CAROTID ARTERY: No occlusion or significant stenosis. No dissection. RIGHT INTERNAL CAROTID ARTERY: Extracranial segment is patent with no occlusion or significant marilee nosis. No dissection. RIGHT EXTERNAL CAROTID ARTERY: No occlusion. RIGHT VERTEBRAL ARTERY: No occlusion or significant stenosis. No dissection. LEFT COMMON CAROTID ARTERY: No occlusion or significant stenosis. No dissection. LEFT INTERNAL CAROTID ARTERY: Extracranial segment is patent with no occlusion or significant sten osis. No dissection. LEFT EXTERNAL CAROTID ARTERY: No occlusion. LEFT VERTEBRAL ARTERY: No occlusion or significant stenosis. No dissection. AORTA: Partial evaluation of aneurysmal dilatation of the aortic arch measuring approximately 3.4 cm which was present on prior exam. Aneurysmal dilatation of the origin of the great vessels. NECK: BONES/JOINTS: Osteopenia and multilevel generative changes of the cervical spine. SOFT TISSUES: Unremarkable. LUNG APICES: Visualized lung zones are clear. CAROTID STENOSIS REFERENCE USING NASCET CRITERIA: % ICA stenosis = (1 - narrowest ICA diameter/diameter of distal cervical ICA) x 100. Mild - <50% stenosis. Moderate - 50-69% stenosis. Severe - 70-94% stenosis. Near occlusion - 95-99% stenosis. Occluded - 100% stenosis. IMPRESSION: 1. Partial evaluation of aneurysmal dilatation of the aortic arch measuring approximat faustino 3.4 cm which was present on prior exam. Aneurysmal dilatation of the origin of the great vessels. 2. No cervical flow limiting stenosis. 3. Mild calcification of the bilateral carotid bulbs. Electronically signed by: Gregorio Live DO 05/17/2022 11:44 PM FLOOR WAXER Due to temporary technical issues with the PACS/Fluency reporting system, reports are being signed by the in house radiologists without review as a courtesy to insure prompt reporting. The interpreting radiologist is fully responsible for the content of the report.
== END 2022-05-18 07:33 | disposition short-term general hospital (02) | DRG 948 ==
LOC: ER 21:05 → ERHOLD 05-18 02:02
PROVIDERS: ADMIT Internal Medicine; ATTEND Internal Medicine
PROC: 30233N1 Transfusion of Nonautologous Red Blood Cells into Peripheral Vein, Percutaneous Approach (ICD-10-PCS; principal; 2022-05-18)
DX: R79.1 Abnormal coagulation profile (principal); D62 Acute posthemorrhagic anemia; I50.32 Chronic diastolic (congestive) heart failure; K92.1 Melena; N39.0 Urinary tract infection, site not specified; K52.9 Noninfective gastroenteritis and colitis, unspecified; I11.0 Hypertensive heart disease with heart failure; E78.5 Hyperlipidemia, unspecified; I48.91 Unspecified atrial fibrillation; K21.9 Gastro-esophageal reflux disease without esophagitis; I71.9 Aortic aneurysm of unspecified site, without rupture; S10.93XA Contusion of unspecified part of neck, initial encounter; D72.829 Elevated white blood cell count, unspecified; Z79.01 Long term (current) use of anticoagulants; Z95.2 Presence of prosthetic heart valve; Z88.5 Allergy status to narcotic agent; Z79.82 Long term (current) use of aspirin; Z98.51 Tubal ligation status; Z79.899 Other long term (current) drug therapy; Z20.822 Contact with and (suspected) exposure to COVID-19; W18.30XA Fall on same level, unspecified, initial encounter; Y92.9 Unspecified place or not applicable
CPT/HCPCS: 36415; 70498; 74177; 80048; 80053; 81003; 81015; 83605; 83690; 84484; 85025; 85610; 86850; 86900; 86901; 87077; 87086; 87088; 87186; 87811; 93005; 96372; 96374; 99285; J3010; J3430; J7040; P9016; P9059; Q9967

== ENCOUNTER 2022-08-20 21:39 | Observation (INO) | payer OTHER ==
--- OUTSIDE RECORDS SUMMARY | 2022-08-20 21:55 | XMS REPORT | Continuity of Care Document ---
:1955 Author Organization [facility] t Address [address] [facility] [address] [place] [address] Care Team Providers Name Role Phone Saurabh Dobson Primary Care Physician DANIEL IBRAHIM Attending Clinician Unavailable Saurabh Dobson Attending Clinician Unavailable MARIIA CARDONA Attending Clinician Unavailable MARIIA CARDONA Attending Clinician Unavailable REBECA HOLCOMB Attending Clinician Unavailable REBECA HOLCOMB Attending Clinician Unavailable WAYNE RABAGO Attending Clinician Unavailable JAMAICA DAN Attending Clinician Unavailable JOSEPH CORTES Attending Clinician Unavailable Joseph Cortes MD Attending Clinician Jamaica Dan MD Attending Clinician Pob, [facility] Main Attending Clinician Unavailable Doctor Unassigned, [place] Attending Clinician Unavailable Isaak FISHER, Jeremy Ricardo Attending Clinician Unavailable Wayne Rabago MD Attending Clinician Santos LOVELL, Sean Granda Attending Clinician [phone] Vinayak Cook MD Attending Clinician Lynnette LOVELL, Shadi Jhaveri Attending Clinician [phone] Justo Pagan MD, Franc Calles Attending Clinician Angela LOVELL, Purnima Attending Clinician Benedicto LOVELL, Benjamin Attending Clinician Meaghan Montana MD Attending Clinician MEAGHAN MON[place]NA Attending Clinician Unavailable 1, [facility] Attending Clinician Unavailable Yolande Santacruz MD Attending Clinician YOLANDE SANTACRUZ Attending Clinician Unavailable Franco FISHER, Georgie Attending Clinician Unavailable Josemanuel LOVELL, Carmen Attending Clinician Ricky RODRÍGUEZ Attending Clinician Unavailable Ricky Ibarra Attending Clinician JOSE VILLA Attending Clinician Unavailable Jose Garduno Attending Clinician CALEB RODRIGUES Attending Clinician Unavailable Jamie Deng DO Attending Clinician Caleb Rodrigues MD Attending Clinician JENNIFER LO Attending Clinician Unavailable Wilber Flowers DO Attending Clinician Jennifer Lo MD Attending Clinician ALISHA MCDOWELL Attending Clinician Unavailable NICK IZQUIERDO Attending Clinician Unavailable RADIOLOGY Attending Clinician Unavailable ALICJA MCDERMOTT Attending Clinician Unavailable WAYNE RABAGO Admitting Clinician Unavailable MARIIA CARDONA Admitting Clinician Unavailable VINAYAK COOK Admitting Clinician Unavailable REBECA HOLCOMB Admitting Clinician Unavailable CALEB RODRIGUES Admitting Clinician Unavailable Caleb Rodrigues MD Admitting Clinician JENNIFER LO Admitting Clinician Unavailable Jennifer Lo MD Admitting Clinician Payers Payer Name Policy Type Policy Number Effective Date Expiration Date Judi hamilton [facility] DUAL [id number] 2020 COMP HMO D SNP 00:00:00 [facility] [id number] 2013 PLUS 00:00:00 [place] [id number] 2022 00:00:00 Problems Condition Condition Condition Status Onset Resolution Last Treating Co mments Source Name Details Category Date Date Treatment Clinician Date 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 S/P AVR S/P AVR Disease Recurre [facility] ([facility] ([facility]07 [facility] valve valve 00:00: Medical replacemen replacemen 00 Ce nter t) t) Acute Acute Disease Active [facility] blood loss blood loss 2-07 [facility] anemia anemia 00:00: [facility] 00 Center Suprathera Suprathera Disease Active [facility] peutic INR peutic INR 2-07 [facility]ady kes 00:00: [facility] 00 Center Fall Fall Disease Active [facility] 00:00: [facility] 00 Center Acute Acute Disease Active [facility] upper GI upper GI 2-03 [facility] bleed bleed 00:00: [facility] 00 Center GI bleed GI bleed Disease Active [facility] 00:00: Medical 00 Center Atrial Atrial Disease Active Univers fibrillati fibrillati 8-11 it y of on on 00:00: [place] 00 Medical Branch E44.0 E44.0 Disease Active 2020-04 Univers Moderate Moderate 1-19 ity of protein protein 00:00: [place] calorie calorie 00 Medical malnutriti malnutriti Br anch on on Other Other Disease Active 2020-04 Univers chest pain chest pain 1-19 it y of 00:00: [place] 00 Medical Branch Chest pain Chest pain Disease Active 2020-04 U nivers 1-17 ity of 00:00: [place] 00 Medical Branch Elevated Elevated Disease Active [...] nivers ated ated 8-20 ity of 00:00: [place] [facility] Coronary Coronary Disease Active Unive rs artery artery 8-20 ity of disease disease 00:00: [place] involving involving 00 Medi [facility] coronary coronary artery of artery of [facility] 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 8-20 ity of disease disease 00:00: [place] involving involving 00 Medi tyrone [facility] coronary coronary artery of artery of [facility] 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 2-20 ity of disease disease 00:00: [place] involving involving 00 Medi tyrone [facility] Branch heart heart without without angina angina [...] Source Name Type Date Date Clinician Morphine Drug Active Pt [facility] Int[facility]-03 [facility] 00:[facility]: feeling Medical 00 shaky Center with morphine MORPHINE Allergy Active [facility] 00:[facility]: Medical 00 Center Morphine Propensi Active Shortness of 2007-0 Univers ty to Breath 1-15 ity of adverse 00:00: [place] reaction 00 Medical s to Branch drug MORPHINE DRUG Active High SOB 2006-0 Univers INGREDI 1-15 ity of 00:00: [place] 00 Medical Branch Family History Family Member Diagnosis Comments Start Date Stop Date Source Natural mother Diabetes [facility] [place] [facility] Natural mother Heart [facility] [place] [facility] Other Diabetes [facility] [place] [facility] Natural sister Cancer [facility] [place] [facility] Natural sister Diabetes [facility] [place] [facility] Social History Social Habit Start Date Stop Date Quantity Comments Source History SDOH Social Unive rsity of Connections Get [place] Med ical Together Branch History SDOH Social Unive rsity of Connections [facility] Medical Branch History SDOH Social Unive rsity of Connections [place] [facility] Membership Branch History SDOH Social Unive rsity of Connections [place] [facility] Meetings Branch Exposure to 2022-06-15 2022-06-25 Not sure University of SARS-CoV-2 (event) 00:00:00 10:27:00 [place] [facility] History SDOH 2022-06-07 2022-06-07 1 University o f Alcohol Frequency 00:00:00 00:00:00 [place] M edical Branch History SDOH 2022-06-07 2022-06-07 0 University o f Alcohol Std Drinks 00:00:00 00:00:00 [place] [facility] History SDOH 2022-06-07 2022-06-07 1 University o f Alcohol Binge 00:00:00 00:00:00 [place] Medic al Branch History SDOH Social 2022-06-07 2022-06-07 5 Unive rsity of Connections Phone 00:00:00 00:00:00 [place] M edical Branch History SDOH Social 2022-06-07 2022-06-07 4 Unive rsity of Connections Living 00:00:00 00:00:00 [place] [facility] History SDOH 2022-06-07 2022-06-07 0 University o f Physical Activity 00:00:00 00:00:00 [place] M edical DPW Branch History SDOH 2022-06-07 2022-06-07 0 University o f Physical Activity 00:00:00 00:00:00 [place] M edical MPS Branch History SDOH 2022-06-07 2022-06-07 5 University o f Financial 00:00:00 00:00:00 [place] [facility] History SDOH Food 2022-06-07 2022-06-07 1 Univers ity of Worry 00:00:00 00:00:00 [place] [facility] [place] History SDOH Food 2022-06-07 2022-06-07 1 Univers ity of Scarcity 00:00:00 00:00:00 [place] [facility] [place] History SDOH 2022-06-07 2022-06-07 2 University o f Transport Med 00:00:00 00:00:00 [place] Medic al Branch History SDOH 2022-06-07 2022-06-07 2 University o f Transport Non-Med 00:00:00 00:00:00 [place] M edical Branch Education 2022-06-06 2022-06-06 14 University of 00:00:00 00:00:00 [facility] Tobacco use and 2022-05-19 2022-05-[address] [facility] [address] [facility] exposure 00:00:00 00:00:00 tobacco non-user Medical Center Alcohol intake 2022-05-19 2022-05-19 Ex-drinker [facility] 00:00:00 00:00:00 (finding) Medical Center History [facility] 2022-05-18 2022-05-[address] [facility] Unable to 00:00:00 00:00:00 Medical Center Pay History [facility] 2022-05-18 2022-05-[address] [facility] Housing Places 00:00:00 00:00:00 Medical Ce nter Lived History [facility] 2022-05-18 2022-05-[address] [facility] Housing Homeless 00:00:00 00:00:00 Medical Center Last Year Sex Assigned At [address] [facility] 00:00:00 00:00:00 Medical Center Smoking Status Start Date Stop Date Source Never smoked tobacco [facility] Medications Ordered Filled Start Stop Current Ordering Indication Dosage Frequency Signature Comments Components Source Medication Medication Date Date Medication? Clinician (SIG) Name Name ezetimibe Yes [id number] 10mg Take 1 U nivers (ZETIA) 10 4-18 tablet by ity of mg tablet 00:[place] the Medical morning. Branch ezetimibe Yes [id number] 10mg Take 1 U nivers (ZETIA) 10 4-18 tablet by ity of mg tablet 00:[place] the [place] morning. Branch ezetimibe 2022-0 Yes [id number] 10mg Take 1 U nivers (ZETIA) 10 4-18 tablet by ity of mg tablet 00:00[place] the Medical morning. Branch ezetimibe 2022-0 Yes [id number] 10mg Take 1 U nivers (ZETIA) 10 4-18 tablet by ity of mg tablet 00:00[place] the Medical morning. Branch ezetimibe 2022-0 Yes [id number] 10mg Take 1 U nivers (ZETIA) 10 4-18 tablet by ity of mg tablet 00:00[place] the Medical morning. Branch ezetimibe 2022-0 Yes [id number] 10mg Take 1 U nivers (ZETIA) 10 4-18 tablet by ity of mg tablet 00:00: [place] the Medical morning. Branch alendronate Yes 70mg 70 mg, Univ ers (FOSAMAX) 06-13 Oral, ity of tablet 70 06:00: QWEEKLY, [place] mg 00 First dose Medical on Sat Branch 06/13/22 at 0000, Until Discontinu ed, Routine magnesium 2022-0 2022- No 400mg 400 mg, Uni vers oxide 06-12 Oral, ity of (MAG-OX 14:45: 14:19 ONCE, 1 [place] 400) tablet 00 :00 dose, On Medi tyrone 400 mg Sat Branch 06/12/22 at 0845, Routine HYDROcodone 2022-0 Yes 1 tablet Un chong -acetaminop 2-28 as needed ity of hen 7.5-325 12:24: [place] mg per 55 Medical tablet Branch HYDROcodone 2022-0 Yes 1 tablet Un chong -acetaminop 2-28 as needed ity of hen 7.5-325 12:24: [place] mg per 55 Medical tablet Branch HYDROcodone 2022-0 Yes 1 tablet Un chong -acetaminop 2-28 as needed ity of hen 7.5-325 12:24: [place] mg per 55 Medical tablet Branch HYDROcodone 2022-0 Yes 1 tablet Un chong -acetaminop 2-28 as needed ity of hen 7.5-325 12:24: [place] mg per 55 Medical tablet Branch HYDROcodone 2022-0 Yes 1 tablet Un chong -acetaminop 2-28 as needed ity of hen 7.5-325 12:24: [place] mg per 55 Medical tablet Branch HYDROcodone 0 Yes 1 tablet Un chong -acetaminop 2-28 as needed ity of hen 7.5-325 12:24: [place] mg per 55 Medical tablet Branch HYDROcodone 0 Yes 1 tablet Un chong -acetaminop 2-28 as needed ity of hen 7.5-325 12:24: [place] mg per 55 Medical tablet Branch HYDROcodone 0 Yes 1 tablet Un chong -acetaminop 2-28 as needed ity of hen 7.5-325 12:24: [place] mg per 55 Medical tablet Branch HYDROcodone 0 Yes 1 tablet Un chong -acetaminop 2-28 as needed ity of hen 7.5-325 12:24: [place] mg per 55 Medical tablet Branch HYDROcodone 0 Yes 1 tablet Un chong -acetaminop 2-28 as needed ity of hen 7.5-325 12:24: [place] mg per 55 Medical tablet Branch HYDROcodone 0 Yes 1 tablet Un chong -acetaminop 2-28 as needed ity of hen 7.5-325 12:24: [place] mg per 55 Medical tablet Branch HYDROcodone 2022-0 Yes 1 tablet Un chong -acetaminop 2-28 as needed ity of hen 7.5-325 12:24: [place] mg per 55 Medical tablet Branch HYDROcodone 2022-0 Yes 1 tablet Un chong -acetaminop 2-28 as needed ity of hen 7.5-325 12:24: [place] mg per 55 Medical tablet Branch HYDROcodone 2022-0 Yes 1 tablet Un chong -acetaminop 2-28 as needed ity of hen 7.5-325 12:24: [place] mg per 55 Medical tablet Branch HYDROcodone 2022-0 Yes 1 tablet Un chong -acetaminop 2-28 as needed ity of hen 7.5-325 12:24: [place] mg per 55 Medical tablet Branch HYDROcodone 2022-0 Yes 1 tablet Un chong -acetaminop 2-28 as needed ity of hen 7.5-325 12:24: [place] mg per 55 Medical tablet Branch HYDROcodone 0 Yes 1 tablet Un chong -acetaminop 2-28 as needed ity of hen 7.5-325 12:24: [place] mg per 55 Medical tablet Branch HYDROcodone 0 Yes 1 tablet Un chong -acetaminop 2-28 as needed ity of hen 7.5-325 12:24: [place] mg per 55 Medical tablet Branch HYDROcodone 0 Yes 1 tablet Un chong -acetaminop 2-28 as needed ity of hen 7.5-325 12:24: [place] mg per 55 Medical tablet Branch HYDROcodone 0 Yes 1 tablet Un chong -acetaminop 2-28 as needed ity of hen 7.5-325 12:24: [place] mg per 55 Medical tablet Branch HYDROcodone 0 Yes 1 tablet Un chong -acetaminop 2-28 as needed ity of hen 7.5-325 12:24: [place] mg per 55 Medical tablet Branch HYDROcodone 0 Yes 1 tablet Un chong -acetaminop 2-28 as needed ity of hen 7.5-325 12:24: [place] mg per 55 Medical tablet Branch HYDROcodone 0 Yes 1 tablet Un chong -acetaminop 2-28 as needed ity of hen 7.5-325 12:24: [place] mg per 55 Medical tablet Branch Fesoterodin 0 2022- No 1 tablet U nivers e (TOVIAZ) 06-11 ity of 4 mg tablet 16:41: 00:00 [place] 38 :00 Medical Branch Fesoterodin 2022-0 2022- No 1 tablet U nivers e (TOVIAZ) 06-11 ity of 4 mg tablet 16:41: 00:00 [place] 38 :00 Medical Branch Fesoterodin 2022-0 2022- No 1 tablet U nivers e (TOVIAZ) 06-11 ity of 4 mg tablet 16:41: 00:00 [place] 38 :00 Medical Branch Fesoterodin 2022-0 2022- No 1 tablet U nivers e (TOVIAZ) 06-11 ity of 4 mg tablet 16:41: 00:00 [place] 38 :00 Medical Branch Fesoterodin 2022- No 1 tablet U nivers e (TOVIAZ) 06-11 ity of 4 mg tablet 16:41: 00:00 [place] 38 :00 Medical Branch HYDROcodone Yes 1 tablet Un chong -acetaminop 06-11 as needed ity of hen 7.5-325 16:41: [place] mg per 35 Medical tablet Branch NaCl 0.9% Yes [id number] 250mL at 20 U nivers (NS) IV 2-27 mL/hr, IV ity of infusion 16:15: [place], [place] 250 [place] 00 CONTINUOUS Medical , Starting Branch on [facility] 06/11/22 at 1015, Until Discontinu ed, Routine&lt ;br>KVO
lidocaine 2022- No [id number] 15mL 15 mL, Univers 2% viscous 06-11 9107 Oral, ity of (LIDOCAINE 16:15: 16:15 ONCE, 1 [place] as VISCOUS) 2 00 :00 dose, On Medic al % solution [facility] 15 mL 06/11/22 at 1015, Routine FENTanyl PF 2022- No [id number] 50ug 50 mcg, Univers (SUBLIMAZE 06-11 9107 Slow IV ity o f (PF)) 16:15: 16:15 Push, [place] injection 00 :00 ONCE, 1 Medical 50 mcg dose, On Branch [facility] 06/11/22 at 1015, Routine midazolam 2022- No [id number] 1mg 1 mg, IV Univers (VERSED) 06-11 9107 Push, ity of injection 1 16:15: 16:15 ONCE, 1 [place] mg 00 :00 dose, On Medical [facility] 06/11/22 at 1015, Routine warfarin 1 Yes [id number] 2mg Take 2 Univers mg tablet 2-27 tablets by ity of 00:00: mouth [place] 00 every Medical evening. Branch Alternate take 1mg x3 days, then 2mg x 4 days warfarin 1 Yes [id number] 2mg Take 2 Univers mg tablet 2-27 tablets by ity of 00:00: mouth [place] 00 every Medical evening. Branch Alternate take 1mg x3 days, then 2mg x 4 days warfarin 1 Yes [id number] 2mg Take 2 Univers mg tablet 2-27 tablets by ity of 00:00: mouth [place] 00 every Medical evening. Branch Alternate take 1mg x3 days, then 2mg x 4 days warfarin 1 2022-0 Yes [id number] 2mg Take 2 Univers mg tablet 2-27 tablets by ity of 00:00: mouth [place] 00 every Medical evening. Branch Alternate take 1mg x3 days, then 2mg x 4 days warfarin 1 2022-0 Yes [id number] 2mg Take 2 Univers mg tablet 2-27 tablets by ity of 00:00: mouth [place] 00 every Medical evening. Branch Alternate take 1mg x3 days, then 2mg x 4 days warfarin 0 Yes [id number] 2mg Take 2 Univers mg tablet 2-27 tablets by ity of 00:00: mouth [place] 00 every Medical evening. Branch Alternate take 1mg x3 days, then 2mg x 4 days warfarin Yes [id number] 2mg Take 2 Univers mg tablet 2-27 tablets by ity of 00:00: mouth [place] 00 every Medical evening. Branch Alternate take 1mg x3 days, then 2mg x 4 days warfarin 0 Yes [id number] 2mg Take 2 Univers mg tablet 2-27 tablets by ity of 00:00: mouth [place] 00 every Medical evening. Branch Alternate take 1mg x3 days, then 2mg x 4 days warfarin 1 0 Yes [id number] 2mg Take 2 Univers mg tablet 2-27 tablets by ity of 00:00: mouth [place] 00 every Medical evening. Branch Alternate take 1mg x3 days, then 2mg x 4 days warfarin 0 Yes [id number] 2mg Take 2 Univers mg tablet 2-27 tablets by ity of 00:00: mouth [place] 00 every Medical evening. Branch Alternate take 1mg x3 days, then 2mg x 4 days warfarin 1 2022-0 Yes [id number] 2mg Take 2 Univers mg tablet 2-27 tablets by ity of 00:00: mouth [place] 00 every Medical evening. Branch Alternate take 1mg x3 days, then 2mg x 4 days warfarin 1 2022-0 Yes [id number] 2mg Take 2 Univers mg tablet 2-27 tablets by ity of 00:00: mouth [place] 00 every Medical evening. Branch Alternate take 1mg x3 days, then 2mg x 4 days warfarin 1 0 Yes [id number] 2mg Take 2 Univers mg tablet 2-27 tablets by ity of 00:00: mouth [place] 00 every Medical evening. Branch Alternate take 1mg x3 days, then 2mg x 4 days warfarin 1 0 Yes [id number] 2mg Take 2 Univers mg tablet 2-27 tablets by ity of 00:00: mouth [place] 00 every Medical evening. Branch Alternate take 1mg x3 days, then 2mg x 4 days warfarin 0 Yes [id number] 2mg Take 2 Univers mg tablet 2-27 tablets by ity of 00:00: mouth [place] 00 every Medical evening. Branch Alternate take 1mg x3 days, then 2mg x 4 days warfarin 1 Yes [id number] 2mg Take 2 Univers mg tablet 2-27 tablets by ity of 00:00: mouth [place] 00 every Medical evening. Branch Alternate take 1mg x3 days, then 2mg x 4 days warfarin Yes [id number] 2mg Take 2 Univers mg tablet 2-27 tablets by ity of 00:00: mouth [place] 00 every Medical evening. Branch Alternate take 1mg x3 days, then 2mg x 4 days warfarin 0 Yes [id number] 2mg Take 2 Univers mg tablet 2-27 tablets by ity of 00:00: mouth [place] 00 every Medical evening. Branch Alternate take 1mg x3 days, then 2mg x 4 days warfarin 0 Yes [id number] 2mg Take 2 Univers mg tablet 2-27 tablets by ity of 00:00: mouth [place] 00 every Medical evening. Branch Alternate take 1mg x3 days, then 2mg x 4 days warfarin 0 Yes [id number] 2mg Take 2 Univers mg tablet 2-27 tablets by ity of 00:00: mouth [place] 00 every Medical evening. Branch Alternate take 1mg x3 days, then 2mg x 4 days warfarin 1 2022-0 Yes [id number] 2mg Take 2 Univers mg tablet 2-27 tablets by ity of 00:00: mouth [place] 00 every Medical evening. Branch Alternate take 1mg x3 days, then 2mg x 4 days warfarin 1 2022-0 Yes [id number] 2mg Take 2 Univers mg tablet 2-27 tablets by ity of 00:00: mouth [place] 00 every Medical evening. Branch Alternate take 1mg x3 days, then 2mg x 4 days warfarin 1 Yes [id number] 2mg Take 2 Univers mg tablet 2-27 tablets by ity of 00:00: mouth [place] 00 every Medical evening. Branch Alternate take 1mg x3 days, then 2mg x 4 days warfarin 1 Yes [id number] 2mg Take 2 Univers mg tablet 2-27 tablets by ity of 00:00: mouth [place] 00 every Medical evening. Branch Alternate take 1mg x3 days, then 2mg x 4 days dofetilide 2022- Yes [id number] 250ug Take 1 Univers 250 mcg 2-27 05-29 capsule by ity o f capsule 00:00: 04:59 mouth [place] 00 :00 every 12 Medical (twelve) Branch hours for 90 days. dofetilide 2022- Yes [id number] 250ug Take 1 Univers 250 mcg 2-27 05-29 capsule by ity o f capsule 00:00: 04:59 mouth [place] 00 :00 every 12 Medical (twelve) Branch hours for 90 days. dofetilide 2022- Yes [id number] 250ug Take 1 Univers 250 mcg 2-27 05-29 capsule by ity o f capsule 00:00: 04:59 mouth [place] 00 :00 every 12 Medical (twelve) Branch hours for 90 days. dofetilide 2022- Yes [id number] 250ug Take 1 Univers 250 mcg 2-27 05-29 capsule by ity o f capsule 00:00: 04:59 mouth [place] 00 :00 every 12 Medical (twelve) Branch hours for 90 days. dofetilide 2022- Yes [id number] 250ug Take 1 Univers 250 mcg 2-27 05-29 capsule by ity o f capsule 00:00: 04:59 mouth [place] 00 :00 every 12 Medical (twelve) Branch hours for 90 days. dofetilide 2022- Yes [id number] 250ug Take 1 Univers 250 mcg 2-27 05-29 capsule by ity o f capsule 00:00: 04:59 mouth [place] 00 :00 every 12 Medical (twelve) Branch hours for 90 days. dofetilide 2022- Yes [id number] 250ug Take 1 Univers 250 mcg 2-27 05-29 capsule by ity o f capsule 00:00: 04:59 mouth [place] 00 :00 every 12 Medical (twelve) Branch hours for 90 days. dofetilide 2022- Yes [id number] 250ug Take 1 Univers 250 mcg 2-27 05-29 capsule by ity o f capsule 00:00: 04:59 mouth [place] 00 :00 every 12 Medical (twelve) Branch hours for 90 days. dofetilide 2022- Yes [id number] 250ug Take 1 Univers 250 mcg 2-27 05-29 capsule by ity o f capsule 00:00: 04:59 mouth [place] 00 :00 every 12 Medical (twelve) Branch hours for 90 days. dofetilide 2022- Yes [id number] 250ug Take 1 Univers 250 mcg 2-27 05-29 capsule by ity o f capsule 00:00: 04:59 mouth [place] 00 :00 every 12 Medical (twelve) Branch hours for 90 days. dofetilide 2022- Yes [id number] 250ug Take 1 Univers 250 mcg 2-27 05-29 capsule by ity o f capsule 00:00: 04:59 mouth [place] 00 :00 every 12 Medical (twelve) Branch hours for 90 days. dofetilide 2022- Yes [id number] 250ug Take 1 Univers 250 mcg 2-27 05-29 capsule by ity o f capsule 00:00: 04:59 mouth [place] 00 :00 every 12 Medical (twelve) Branch hours for 90 days. dofetilide 2022- Yes [id number] 250ug Take 1 Univers 250 mcg 2-27 05-29 capsule by ity o f capsule 00:00: 04:59 mouth [place] 00 :00 every 12 Medical (twelve) Branch hours for 90 days. dofetilide 2022- Yes [id number] 250ug Take 1 Univers 250 mcg 2-27 05-29 capsule by ity o f capsule 00:00: 04:59 mouth [place] 00 :00 every 12 Medical (twelve) Branch hours for 90 days. dofetilide 2022- Yes [id number] 250ug Take 1 Univers 250 mcg 2-27 05-29 capsule by ity o f capsule 00:00: 04:59 mouth [place] 00 :00 every 12 Medical (twelve) Branch hours for 90 days. dofetilide 2022- Yes [id number] 250ug Take 1 Univers 250 mcg 2-27 05-29 capsule by ity o f capsule 00:00: 04:59 mouth [place] 00 :00 every 12 Medical (twelve) Branch hours for 90 days. dofetilide 2022- Yes [id number] 250ug Take 1 Univers 250 mcg 2-27 05-29 capsule by ity o f capsule 00:00: 04:59 mouth [place] 00 :00 every 12 Medical (twelve) Branch hours for 90 days. dofetilide 2022- Yes [id number] 250ug Take 1 Univers 250 mcg 2-27 05-29 capsule by ity o f capsule 00:00: 04:59 mouth [place] 00 :00 every 12 Medical (twelve) Branch hours for 90 days. dofetilide 2022- Yes [id number] 250ug Take 1 Univers 250 mcg 2-27 05-29 capsule by ity o f capsule 00:00: 04:59 mouth [place] 00 :00 every 12 Medical (twelve) Branch hours for 90 days. dofetilide 2022- Yes [id number] 250ug Take 1 Univers 250 mcg 2-27 05-29 capsule by ity o f capsule 00:00: 04:59 mouth [place] 00 :00 every 12 Medical (twelve) Branch hours for 90 days. dofetilide 2022- Yes [id number] 250ug Take 1 Univers 250 mcg 2-27 05-29 capsule by ity o f capsule 00:00: 04:59 mouth [place] 00 :00 every 12 Medical (twelve) Branch hours for 90 days. dofetilide 2022- Yes [id number] 250ug Take 1 Univers 250 mcg 2-27 05-29 capsule by ity o f capsule 00:00: 04:59 mouth [place] 00 :00 every 12 Medical (twelve) Branch hours for 90 days. dofetilide 2022- Yes [id number] 250ug Take 1 Univers 250 mcg 2-27 05-29 capsule by ity o f capsule 00:00: 04:59 mouth [place] 00 :00 every 12 Medical (twelve) Branch hours for 90 days. dofetilide 2022- Yes [id number] 250ug Take 1 Univers 250 mcg 06-11- capsule by ity o f capsule 00:00: 04:59 mouth [place] 00 :00 every 12 Medical (twelve) Branch hours for 90 days. enoxaparin 2022- Yes [id number] 40mg inject 0.4 Univers 40 mg/0.4 2-27 03-05 mL under ity o f mL 00:00: 05:59 the skin [place] injection 00 :00 in the [facility] Branch for 5 days. enoxaparin 2022- Yes [id number] 40mg inject 0.4 Univers 40 mg/0.4 2-27 03-05 mL under ity o f mL 00:00: 05:59 the skin [place] injection 00 :00 in the [facility] Branch for 5 days. enoxaparin 2022- Yes [id number] 40mg inject 0.4 [facility] 40 mg/0.4 2-27 03-05 mL under ity o f mL 00:00: 05:59 the skin [place] injection 00 :00 in the [facility] for 5 days. enoxaparin 2022- No [id number] 40mg inject 0.4 [facility] 40 mg/0.4 2-27 03-05 mL under ity o f mL 00:00: 05:59 the skin [place] injection 00 :00 in the [facility] for 5 days. enoxaparin 2022- No [id number] 40mg inject 0.4 [facility] 40 mg/0.4 2-27 03-05 mL under ity o f mL 00:00: 05:59 the skin [place] injection 00 :00 in the [facility] for 5 days. enoxaparin 2022- No [id number] 40mg inject 0.4 [facility] 40 mg/0.4 2-27 03-05 mL under ity o f mL 00:00: 05:59 the skin [place] injection 00 :00 in the [facility] for 5 days. enoxaparin 2022- No [id number] 40mg inject 0.4 [facility] 40 mg/0.4 2-27 03- mL under ity o f mL 00:00: 05:59 the skin [place] injection 00 :00 in the Medical morning Branch for 5 days. dofetilide 2022- Yes [id number] 250ug Take 1 [facility] 250 mcg 06-11 capsule by ity o f capsule 00:00: 05:59 mouth [place] 00 :00 every 12 Medical (twelve) Branch hours for 2 days. warfarin 2 2022- Yes [id number] 2mg Take 1 [facility] mg tablet 06-11 tablet by ity of 00:00: 05:59 mouth [place] 00 :00 every Medical evening Branch for 2 days. dofetilide 2022- Yes [id number] 250ug Take 1 [facility] 250 mcg 06-11 capsule by ity o f capsule 00:00: 05:59 mouth [place] 00 :00 every 12 Medical (twelve) Branch hours for 2 days. warfarin 2022- Yes [id number] 2mg Take 1 [facility] mg tablet 06-11 tablet by ity of 00:00: 05:59 mouth [place] 00 :00 every Medical evening Branch for 2 days. warfarin 2 2022- Yes [id number] 2mg Take 1 [facility] mg tablet 06-11 tablet by ity of 00:00: 05:59 mouth [place] 00 :00 every Medical evening Branch for 2 days. warfarin 2 2022- No [id number] 2mg Take 1 [facility] mg tablet 06-11 tablet by ity of 00:00: 05:59 mouth [place] 00 :00 every Medical evening Branch for 2 days. warfarin 2 2022- No [id number] 2mg Take 1 [facility] mg tablet 06-11- tablet by ity of 00:00: 05:59 mouth [place] 00 :00 every Medical evening Branch for 2 days. warfarin 2 2022- No [id number] 2mg Take 1 [facility] mg tablet 06-11 tablet by ity of 00:00: 05:59 mouth [place] 00 :00 every Medical evening Branch for 2 days. warfarin 2 2022- No [id number] 2mg Take 1 [facility] mg tablet 2-27 03-03 tablet by ity of 00:00: 05:59 mouth [place] 00 :00 every Medical evening Branch for 2 days. enoxaparin 2022- Yes [id number] 40mg inject 0.4 [facility] 40 mg/0.4 06-11 03-02 mL under ity o f mL 00:00: 05:59 the skin [place] injection 00 :00 in the Medical morning Branch for 2 days. enoxaparin 2022- Yes [id number] 40mg inject 0.4 [facility] 40 mg/0.4 2 03-02 mL under ity o f mL 00:00: 05:59 the skin [place] injection 00 :00 in the Medical morning Branch for 2 days. dofetilide 2022- Yes [id number] 250ug Take 1 [facility] 250 mcg 06-11- capsule by ity o f capsule 00:00: 05:59 mouth [place] 00 :00 every 12 [facility] Branch hours for 2 days. enoxaparin 2022- Yes [id number] 40mg inject 0.4 [facility] 40 mg/0.4 06-11 03-02 mL under ity o f mL 00:00: 05:59 the skin [place] injection 00 :00 in the [facility] morning Branch for 2 days. dofetilide 2022- No [id number] 250ug Take 1 [facility] 250 mcg 06-11- capsule by ity o f capsule 00:00: 05:59 mouth [place] 00 :00 every 12 [facility] Branch hours for 2 days. enoxaparin 2022- No [id number] 40mg inject 0.4 [facility] 40 mg/0.4 06-11 03-02 mL under ity o f mL 00:00: 05:59 the skin [place] injection 00 :00 in the [facility] morning Branch for 2 days. dofetilide 2022- No [id number] 250ug Take 1 [facility] 250 mcg 2- capsule by ity o f capsule 00:00: 05:59 mouth [place] 00 :00 every 12 Medical (twelve) Branch hours for 2 days. enoxaparin 2022- No [id number] 40mg inject 0.4 [facility] 40 mg/0.4 - 03-02 mL under ity o f mL 00:00: 05:59 the skin [place] injection 00 :00 in the Medical morning Branch for 2 days. dofetilide 2022- No [id number] 250ug Take 1 [facility] 250 mcg 06-11 capsule by ity o f capsule 00:00: 05:59 mouth [place] 00 :00 every 12 Medical (twelve) Branch hours for 2 days. enoxaparin 2022- No [id number] 40mg inject 0.4 [facility] 40 mg/0.4 06-11 mL under ity o f mL 00:00: 05:59 the skin [place] injection 00 :00 in the Medical morning Branch for 2 days. dofetilide 2022- No [id number] 250ug Take 1 [facility] 250 mcg 06-11 capsule by ity o f capsule 00:00: 05:59 mouth [place] 00 :00 every 12 Medical (twelve) Branch hours for 2 days. enoxaparin No [id number] 40mg inject 0.4 [facility] 40 mg/0.4 06-11 mL under ity o f mL 00:00: 05:59 the skin [place] injection 00 :00 in the Medical morning Branch for 2 days. warfarin Yes 2mg 2 mg, [facility] (COUMADIN) 06-10 Oral, ity of tablet 2 mg 23:00: DAILY AT [place] 00 1700, Medical First dose Branch (after last modificati on) on 06/10/22 at 1700, Until Discontinu ed, Routine
INR Goal Range: 2-3
IND ICATION (More than one indication for warfarin can be selected): Atrial fibrillati on/flutter magnesium 2022- No 800mg 800 mg, Uni vers oxide 06-10 Oral, ity of (MAG-OX 14:15: 14:30 ONCE, 1 [place] 400) tablet 00 :00 dose, On Medi tyrone 800 mg [place] Branch 06/10/22 at 0815, Routine magnesium 2022- No 2g 2 g, IV Univ ers sulfate in 06-10 Piggyback, it y of water 2 09:45: 10:41 Administer Babak as gram/50 mL 00 :00 over 60 Medica l (4 %) Minutes, Branch infusion 2 ONCE, 1 g dose, On 06/10/22 at 0345, Routine methocarbam 2022-0 Yes 500mg 500 mg, [facility] oL 2-26 Oral, BID, ity of (ROBAXIN) 02:00: First dose [place] tablet 500 00 on Sat Medical mg 06/09/22 at Branch 2000, Until Discontinu ed, Routine gabapentin 2022-0 Yes 200mg 200 mg, Uni vers (NEURONTIN) 2-25 Oral, TID, it y of capsule 200 20:00: First dose [place] mg 00 on Sat Medical 06/09/22 at Branch 1400, Until Discontinu ed, Routine acetaminoph 2022-0 Yes 500mg 500 mg, [place] en 2-25 Oral, TID, ity of (TYLENOL) 20:00: First dose [place] tablet 500 00 (after Medical mg last Branch modificati on) on 06/09/22 at 1400, Until Discontinu ed, Routine heparin 2022-0 2022- No 80U/kg 3,560 Univer s 1000 2-25 02-25 Units (80 ity of unit/mL 16:30: 17:49 Units/kg [place] injection 00 :00 ?44.5 kg), Medi tyrone Soln 3,560 IV Push, Branc h Units ONCE, 1 dose, On 06/09/22 at 1030, Routine heparin 2022-0 Yes 0U/h 0-2,350 [facility] 25,000 2-25 Units/hr ity of Units/250 16:27: (0-23.5 [place] mL 15 mL/hr), IV Medical (Premixed Infusion, Branc h Bag) in TITRATE, 0.45 % NS Parameters in Admin. Instr., Starting on 06/09/22 at 1027
In itiate dosing:&nb sp; & nbsp;&nbsp ; -Patient 73 kg or under: 800 Units/hr (Calculate d dose at 18 units/kg/h r) &n bsp; &nbs p; -Patient over 73 k,300 units/hr&n bsp;DO NOT Exceed the MAXIMUM 1,300 units/hr for initiation of heparin drip.&nbsp ; CAU TION - If LMWH given in ER, AVOID bolus and start next dose/drip 12 hrs after ER dosage.&nb sp; M ust program rate using programmab le infusion pump.&nbsp ; Linda ck with the ordering provider first prior to any administra tion should the patient be on existing/a dditional anticoagul ant therapy. Rang e, Dosing and Testing: DO NOT ADJUST INITIAL BOLUS OR INITIAL INFUSION RATE.&nbsp ; _ &nb sp;[facility], [facility], AND [facility] ONLY &nbs p; - aPTT < 35: & nbsp;Bolus 5000 units, increase rate 300 units/hr&n bsp; - aPTT 35-44:&nbs p; Nate ashutosh 3000 units, increase rate 200 units/hr&n bsp; - aPTT 45-54:&nbs p; In crease rate 100 units/hr&n bsp; - aPTT 55-85:&amp ;nbsp;&nbs p;NO CHANGE&nbs p; - aPTT 86-95:&nbs p; De crease rate 100 units/hr&n bsp; - aPTT 96-120:&nb sp; H old 30 minutes, decrease rate 150 units/hr&n bsp; - aPTT > 120: Hold 60 minutes, decrease rate 200 units/hr&n bsp; Check aPTT 6 hours after initiation , then Q6H after every change, aPTT Q12H once therapeuti c levels are reached.&n bsp; &nbs p; __ &n bsp;FOR [facility] ONLY - aPTT < 40: & nbsp;Bolus 5000 units, increase rate 300 units/hr&n bsp; - aPTT 40-49:&nbs p; Nate ashutosh 3000 units, increase rate 200 units/hr&n bsp; - aPTT 50-59:&nbs p; In crease rate 100 units/hr&n bsp; - aPTT 60-85:&nbs p; NO CHANGE&nbs p; - aPTT 86-95:&nbs p;&nbs p;Decrease rate 100 units/hr&n bsp; - aPTT 96-120:&nb sp; H old 30 minutes, decrease rate 150 units/hr&n bsp; - aPTT > 120: Hold 60 minutes, decrease rate 200 units/hr&n bsp; Check aPTT 6 hours after initiation , then Q6H after every change, aPTT Q12H once therapeuti c levels are reached.<b r> heparin Yes 3000U FOR Univers (1,000 2-25 REBOLUSING ity of unit/mL, 10 16:27: , Starting [place] mL vial) 12 on [facility] Medical 06/09/22 at Branch 1027, Until Discontinu ed, Routine
Dosing based on aPTT testing parameters (refer to continuous heparin drip order)
magnesium 2022- No 400mg 400 mg, Uni vers oxide -25 02-25 Oral, ity of (MAG-OX 15:00: 15:14 ONCE, 1 [place] 400) tablet 00 :00 dose, On Medi tyrone 400 mg Sat Branch 06/09/22 at 0900, Routine FENTanyl PF Yes 25ug 25 mcg, Uni vers (SUBLIMAZE 2-24 Slow IV ity of (PF)) 17:36: Push, [place] injection 01 Q6HPRN, Medical 25 mcg Starting Branch on Sat06/08/22 at 1136, Until Discontinu ed, Routine, Pain (scale 7-10) magnesium 2022- No 2g 2 g, IV Univ ers sulfate in 06-08 Piggyback, it y of water 2 12:45: 13:13 Administer Babak as gram/50 mL 00 :00 over 60 Medica l (4 %) Minutes, Branch infusion 2 ONCE, 1 g dose, On Sat06/08/22 at 0645, Routine dofetilide Yes 250ug 250 mcg, [facility] (TIKOSYN) 06-08 Oral, ity of capsule 250 02:00: Q12H, [place] mcg 00 First dose Medical (after Branch last modificati on) on [place] 06/07/22 at 2000, Until Discontinu ed, Routine
produce production team member approving Restricted medication : MARIIA CARDONA warfarin 2022- No 1.5mg 1.5 mg, Univ ers (COUMADIN) 06-07 Oral, ity of tablet 1.5 23:00: 13:52 DAILY AT [place] mg 00 :32 1700, Medical First dose Branch (after last modificati on) on [place] 06/07/22 at 1700, Until Discontinu ed, Routine
INR Goal Range: 2-3
IND ICATION (More than one indication for warfarin can be selected): Atrial fibrillati on/flutter pantoprazol Yes 40mg 40 mg, Univ ers e 06-07 Oral, ity of (PROTONIX) 15:00: DAILY, [place] EC tablet 00 First dose Medi tyrone 40 mg on [place] Branch 06/07/22 at 0900, Until Discontinu ed, Routine ezetimibe Yes 10mg 10 mg, Univer s (ZETIA) 06-07 Oral, ity of tablet 10 15:00: DAILY, [place] mg 00 First dose Medical on [facility] Branch 06/07/22 at 0900, Until Discontinu ed, Routine furosemide 2022- No 40mg 40 mg, Univ ers (LASIX) 06-07 Oral, ity of tablet 40 15:00: 20:50 DAILY, [place] mg 00 :38 First dose Medical on [place] Branch 06/07/22 at 0900, Until Discontinu ed, Routine aspirin No 81mg 81 mg, Univers chewable 06-07 Oral, ity of tablet 81 15:00: 15:25 DAILY, [place] mg 00 :24 First dose Medical on [facility] Branch 06/07/22 at 0900, Until Discontinu ed, Routine HYDROcodone 0 Yes 1{tbl} 1 tablet, Univers -acetaminop 06-07 Oral, ity of hen (NORCO) 14:58: Q6HPRN, Babak as 10-325 mg 30 Starting Medica l tablet 1 on [facility] tablet 06/07/22 at 0858, Until Discontinu ed, Routine, Pain (scale 7-10), Pain (scale 4-6) gabapentin 2022- No 300mg 300 mg, [facility] (NEURONTIN) 06-07 Oral, ity of capsule 300 07:45: 07:14 ONCE, 1 [place] mg 00 :00 dose, On [facility] 06/07/22 at 0145, Routine KCL No 20meq 20 mEq, Univers (KLOR-CON 06-07 Oral, ity of M20) tablet 05:00: 06:48 ONCE, 1 [place] 20 mEq 00 :00 dose, On [facility] 06/06/22 at 2315, Routine magnesium 2022- No 2g 2 g, IV Univ ers sulfate in 06-07 Piggyback, it y of water 2 05:00: 08:15 Administer Babak as gram/50 mL 00 :00 over 60 Medica l (4 %) Minutes, Branch infusion 2 ONCE, 1 g dose, On [facility] 06/06/22 at 2315, Routine atorvastati Yes 80mg 80 mg, Univ ers n (LIPITOR) 06-07 Oral, QHS, it y of tablet 80 03:00: First dose [place] mg 00 on [facility] 06/06/22 at Branch 2100, Until Discontinu ed, Routine dofetilide 2022- No 125ug 125 mcg, U nivers (TIKOSYN) 06-07 Oral, ity of capsule 125 02:00: 16:35 Q12H, [place] mcg 00 :11 First dose Medical on Sat Branch 06/06/22 at 2000, Until Discontinu ed, Routine
produce production team member approving Restricted medication : KIRK MARIIA CONNELL lidocaine Yes 1{patch 1 Patch, U nivers (LIDODERM) 06-07 } Topical, ity o f 5 % (700 01:00: Administer Babak as mg/patch) 00 over 12 Medical patch 1 Hours, Branch Patch DAILY, First dose (after last modificati on) on Sat06/06/22 at 1900, Until Discontinu ed, Routine warfarin 2022- No 1mg 1 mg, Univers (COUMADIN) 06-07 Oral, ity of tablet 1 mg 01:00: 16:41 DAILY AT [place] 00 :04 1700, Medical First dose Branch (after last modificati on) on Sat06/06/22 at 1900, Until Discontinu ed, Routine
INR Goal Range: 2-3
IND ICATION (More than one indication for warfarin can be selected): Atrial fibrillati on/flutter FENTanyl PF 2022- No 12.5ug 12.5 mcg, Univers (SUBLIMAZE 06-07 Slow IV ity o f (PF)) 00:17: 00:39 Push, [place] injection 00 :00 ONCE, 1 Medical 12.5 mcg dose, On Branch Sat06/06/22 at 1830, Routine zolpidem Yes 5mg 5 mg, Univers (AMBIEN) 06-07 Oral, ity of tablet 5 mg 00:13: QHSPRN, Babak as 38 Starting Medical on Sat Branch 06/06/22 at 1813, Until Discontinu ed, Routine, Insomnia HYDROcodone 2022- No 1{tbl} 1 tablet, Univers -acetaminop 06-07 Oral, ity of hen (NORCO) 00:07: 14:37 Q6HPRN, [place] 10-325 mg 12 :32 Starting Medica l tablet 1 on Sat Branch tablet 06/06/22 at 1807, Until [place] 06/07/22 at 0837, Routine, Pain (scale 7-10) Fesoterodin Yes 1 tablet [place] e (TOVIAZ) 2-22 ity of 4 mg tablet 18:17: [place] [id number] Medical Branch HYDROcodone Yes 1 tablet [facility] [place] -acetaminop 2-22 as needed ity of hen 7.5-325 18:17: [place] mg per Medical tablet Branch furosemide 2023- Yes 20mg QD Take [address] [facility] (LASIX) 20 2-13 02-13 tablet (20 Yady kes MG tablet 00:00: 23:59 mg total) Me dical 00 :00 by mouth Center daily. furosemide 2023- Yes 20mg QD Take [address] [facility] (LASIX) 20 2-13 02-13 tablet (20 Yady kes MG tablet 00:00: 23:59 mg total) Me dical 00 :00 by mouth Center daily. furosemide 2023- Yes 20mg QD Take [address] [facility] (LASIX) 20 2-13 02-13 tablet (20 Yady kes MG tablet 00:00: 23:59 mg total) Me dical 00 :00 by mouth Center daily. warfarin Yes 1mg QD Take [address] [facility] (COUMADIN, 2-12 by mouth [facility]) 1 16:44: daily. Medi tyrone MG tablet 11 [place] warfarin Yes 1mg QD Take [address] [facility] (COUMADIN, 2-12 by mouth [facility]) 1 16:44: daily. Medi tyrone MG tablet 11 [place] warfarin Yes 1mg QD Take [address] [facility] (COUMADIN, 2-12 by mouth [facility]) 1 16:44: daily. Medi tyrone MG tablet 11 [place] amiodarone Yes Take [address] [facility] (PACERONE) 2-12 PO BID x 1 [place] 200 MG 00:00: month then Medic al tablet 00 decrease Center to 1 tab daily. amiodarone Yes Take [address] [facility] (PACERONE) 2-12 PO BID x 1 [place] 200 MG 00:00: month then Medic al tablet 00 decrease Center to 1 tab daily. amiodarone Yes Take [address] [facility] (PACERONE) 2-12 PO BID x 1 [place] 200 MG 00:00: month then Medic al tablet 00 decrease Center to 1 tab daily. atorvastati 2023- Yes 80mg QD Take [address] [facility] (LIPITOR) 05-27- tablet (80 [place] 80 MG 00:00: 23:59 mg total) Medica l tablet 00 :00 by mouth Center nightly. metoprolol 2023- Yes 12.5mg Q.5D Take 0.[address] [facility] tartrate 05-27- tablets [facility] (LOPRESSOR) 00:00: 23:59 (12.5 mg M edical 25 MG 00 :00 total) by Center tablet mouth 2 (two) times daily. atorvastati 2023- Yes 80mg QD Take [address] [facility] (LIPITOR) 05-27- tablet (80 [place] 80 MG 00:00: 23:59 mg total) Medica l tablet 00 :00 by mouth Center nightly. metoprolol 2023- Yes 12.5mg Q.5D Take 0.[address] [facility] tartrate 05-27- tablets [facility] (LOPRESSOR) 00:00: 23:59 (12.5 mg M edical 25 MG 00 :00 total) by Center tablet mouth 2 (two) times daily. atorvastati 2023- Yes 80mg QD Take [address] [facility] (LIPITOR) 05-27 tablet (80 [place] 80 MG 00:00: 23:59 mg total) Medica l tablet 00 :00 by mouth Center nightly. metoprolol 2023- Yes 12.5mg Q.5D Take 0.[address] [facility] tartrate 05-27- tablets [facility] (LOPRESSOR) 00:00: 23:59 (12.5 mg M edical 25 MG 00 :00 total) by Center tablet mouth 2 (two) times daily. metoprolol 2022- No 1 tablet [facility] tartrate 25 05-27 with food it y of mg tablet 00:00: 00:00 [place] 00 :00 Medical Branch metoprolol 2022- No 1 tablet [place] tartrate 25 05-27 with food it y of mg tablet 00:00: 00:00 [place] 00 :00 Medical Branch metoprolol 2023-0 2023- No 1 tablet [place] tartrate 25 2-12 06-06 with food it y of mg tablet 00:00: 00:00 [place] 00 : Medical Branch warfarin 2022-0 Yes 1mg QD Take [address] [facility] (COUMADIN, 2-04 by mouth [facility]) 1 13:52: daily. Medi tyrone MG tablet 50 [place] warfarin 2022-0 Yes 1mg QD Take [address] [facility] (COUMADIN, 2-04 by mouth [facility]) 1 13:52: daily. Medi tyrone MG tablet 50 [place] warfarin 2022-0 Yes 1mg QD Take [address] [facility] (COUMADIN, 2-04 by mouth [facility]) 1 13:52: daily. Medi tyrone MG tablet 50 [place] warfarin 2022-0 Yes 1mg QD Take [address] [facility] (COUMADIN, 2-04 by mouth [facility]) 1 13:52: daily. Medi tyrone MG tablet 50 [place] alendronate 0 Yes Univer s 70 mg 1-26 ity of tablet 00:00: Medical Branch zolpidem 10 2022-0 Yes 1 tablet [place] mg tablet 1-26 at bedtime ity of 00:00: as needed Medical Branch alendronate 2022-0 Yes Univer s 70 mg 1-26 ity of tablet 00:00: Medical Branch zolpidem 10 2022-0 Yes 1 tablet [place] mg tablet 1-26 at bedtime ity of 00:00: as needed Medical Branch alendronate 2022-0 Yes Univer s 70 mg 1-26 ity of tablet 00:00: Medical Branch zolpidem 10 2022-0 Yes 1 tablet [place] mg tablet 1-26 at bedtime ity of 00:00: as needed Medical Branch alendronate 2022-0 Yes Univer s 70 mg 1-26 ity of tablet 00:00: Medical Branch zolpidem 10 2022-0 Yes 1 tablet [place] mg tablet 1-26 at bedtime ity of 00:00: as needed Medical Branch alendronate 2022-0 Yes Univer s 70 mg 1-26 ity of tablet 00:00: [place] [address] Medical Branch zolpidem 10 2022-0 Yes 1 tablet [facility] mg tablet 1-26 at bedtime ity of 00:00: as needed Medical Branch alendronate 0 Yes Univer s 70 mg 1-26 ity of tablet 00:00: Medical Branch zolpidem 10 0 Yes 1 tablet [place] mg tablet 1-26 at bedtime ity of 00:00: as needed Medical Branch alendronate 0 Yes Univer s 70 mg 1-26 ity of tablet 00:00: [place] Medical Branch zolpidem 10 0 Yes 1 tablet [place] mg tablet 1-26 at bedtime ity of 00:00: as needed Medical Branch alendronate 0 Yes Univer s 70 mg 1-26 ity of tablet 00:00: [place] Medical Branch zolpidem 10 0 Yes 1 tablet [place] mg tablet 1-26 at bedtime ity of 00:00: as needed Medical Branch alendronate 0 Yes Univer s 70 mg 1-26 ity of tablet 00:00: [place] Medical Branch zolpidem 10 0 Yes 1 tablet [place] mg tablet 1-26 at bedtime ity of 00:00: as needed [place] Medical Branch alendronate 0 Yes Univer s 70 mg 1-26 ity of tablet 00:00: [place] Medical Branch zolpidem 10 0 Yes 1 tablet [place] mg tablet 1-26 at bedtime ity of 00:00: as needed Medical Branch alendronate 0 Yes Univer s 70 mg 1-26 ity of tablet 00:00: Medical Branch zolpidem 10 0 Yes 1 tablet [place] mg tablet 1-26 at bedtime ity of 00:00: as needed Medical Branch alendronate 2022-0 Yes Univer s 70 mg 1-26 ity of tablet 00:00: [place] Medical Branch zolpidem 10 2022-0 Yes 1 tablet [place] mg tablet 1-26 at bedtime ity of 00:00: as needed Medical Branch alendronate 2022-0 Yes Univer s 70 mg 1-26 ity of tablet 00:00: [place] [address] Medical Branch zolpidem 10 0 Yes 1 tablet [place] mg tablet 1-26 at bedtime ity of 00:00: as needed [place] Medical Branch alendronate 2022-0 Yes Univer s 70 mg 1-26 ity of tablet 00:00: [place] Medical Branch zolpidem 10 2022-0 Yes 1 tablet [place] mg tablet 1-26 at bedtime ity of 00:00: as needed [place] Medical Branch alendronate 2022-0 Yes Univer s 70 mg 1-26 ity of tablet 00:00: [place] Medical Branch zolpidem 10 2022-0 Yes 1 tablet [place] mg tablet 1-26 at bedtime ity of 00:00: as needed [place] Medical Branch alendronate 2022-0 Yes Univer s 70 mg 1-26 ity of tablet 00:00: [place] [address] Medical Branch zolpidem 10 2022-0 Yes 1 tablet [place] mg tablet 1-26 at bedtime ity of 00:00: as needed [place] Medical Branch alendronate 2022-0 Yes Univer s 70 mg 1-26 ity of tablet 00:00: [place] [address] Medical Branch zolpidem 10 2022-0 Yes 1 tablet [place] mg tablet 1-26 at bedtime ity of 00:00: as needed [place] Medical Branch alendronate 2022-0 Yes Univer s 70 mg 1-26 ity of tablet 00:00: [place] [address] Medical Branch zolpidem 10 2022-0 Yes 1 tablet [place] mg tablet 1-26 at bedtime ity of 00:00: as needed Medical Branch alendronate 2022-0 Yes Univer s 70 mg 1-26 ity of tablet 00:00: [place] [address] Medical Branch zolpidem 10 2022-0 Yes 1 tablet [place] mg tablet 1-26 at bedtime ity of 00:00: as needed [place] Medical Branch alendronate 2022-0 Yes Univer s 70 mg 1-26 ity of tablet 00:00: [place] [address] Medical Branch zolpidem 10 2022-0 Yes 1 tablet [place] mg tablet 1-26 at bedtime ity of 00:00: as needed [place] Medical Branch alendronate 2022-0 Yes Univer s 70 mg 1-26 ity of tablet 00:00: [place] Medical Branch zolpidem 10 0 Yes 1 tablet [place] mg tablet 1-26 at bedtime ity of 00:00: as needed Medical Branch alendronate Yes Univer s 70 mg 1-26 ity of tablet 00:00: [place] Medical Branch zolpidem 10 0 Yes 1 tablet [place] mg tablet 1-26 at bedtime ity of 00:00: as needed Medical Branch alendronate Yes Univer s 70 mg 1-26 ity of tablet 00:00: [place] Medical Branch zolpidem 10 0 Yes 1 tablet [place] mg tablet 1-26 at bedtime ity of 00:00: as needed [place] Medical Branch alendronate Yes Univer s 70 mg 1-26 ity of tablet 00:00: [place] Medical Branch zolpidem 10 Yes 1 tablet [place] mg tablet 1-26 at bedtime ity of 00:00: as needed [place] Medical Branch alendronate Yes Univer s 70 mg 1-26 ity of tablet 00:00: [place] [facility] Branch zolpidem 10 Yes 1 tablet [place] mg tablet 1-26 at bedtime ity of 00:00: as needed [place] [address] Medical Branch metoprolol 2022- No [id number] 25mg Take 1 [facility] succinate 1-26 -27 tablet by ity of XL (TOPROL 00:00: 04:59 mouth [place] XL) 25 mg 00 :00 the Medical 24 hr morning Branch tablet for 90 days. metoprolol 2022- No [id number] 25mg Take 1 [facility] succinate 1-26 -27 tablet by ity of XL (TOPROL 00:00: 04:59 mouth [place] XL) 25 mg 00 :00 the Medical 24 hr morning Branch tablet for 90 days. metoprolol 2022- No [id number] 25mg Take 1 [facility] succinate 1-26 -27 tablet by ity of XL (TOPROL 00:00: 04:59 mouth in [place] XL) 25 mg 00 :00 the Medical 24 hr morning Branch tablet for 90 days. metoprolol 2022- No [id number] 25mg Take 1 [facility] succinate 1-26 04-27 tablet by ity of XL (TOPROL 00:00: 04:59 mouth in [place] XL) 25 mg 00 :00 the Medical 24 hr morning Branch tablet for 90 days. metoprolol 2022- No [id number] 25mg Take 1 [facility] succinate 1-26 04-27 tablet by ity of XL (TOPROL 00:00: 04:59 mouth in [place] XL) 25 mg 00 :00 the Medical 24 hr morning Branch tablet for 90 days. metoprolol 2022- No [id number] 25mg Take 1 [facility] succinate 1-26 -27 tablet by ity of XL (TOPROL 00:00: 04:59 mouth in [place] XL) 25 mg 00 :00 the Medical 24 hr morning Branch tablet for 90 days. metoprolol 2022- No [id number] 25mg Take 1 [facility] succinate 1-26 -27 tablet by ity of XL (TOPROL 00:00: 00:00 mouth in [place] XL) 25 mg 00 :00 the Medical 24 hr morning Branch tablet for 90 days. metoprolol 2022- No [id number] 25mg Take 1 [facility] succinate 1-10 06-27 tablet by ity of XL (TOPROL 00:00: 00:00 mouth in [place] XL) 25 mg 00 :00 the Medical 24 hr morning Branch tablet for 90 days. metoprolol 2022- No [id number] 25mg Take 1 [facility] succinate 1-26 -27 tablet by ity of XL (TOPROL 00:00: 00:00 mouth in [place] XL) 25 mg 00 :00 the Medical 24 hr morning Branch tablet for 90 days. metoprolol 2022- No [id number] 25mg Take 1 [facility] succinate 1-26 -27 tablet by ity of XL (TOPROL 00:00: 00:00 mouth [place] XL) 25 mg 00 :00 the Medical 24 hr morning Branch tablet for 90 days. metoprolol 2022- No [id number] 25mg Take 1 [facility] succinate 1-26 -27 tablet by ity of XL (TOPROL 00:00: 00:00 mouth [place] XL) 25 mg 00 :00 the Medical 24 hr morning Branch tablet for 90 days. Diclofenac Yes Univers Sodium 1 % 1-25 ity of gel 00:00: [place] 00 Medical Branch Diclofenac 3-0 2023- No Univer s Sodium 1 % 1-25 -27 ity of gel 00:00: 00:00 [place] 00 :00 [facility] Diclofenac 2022-0 2023- No [facility] Sodium 1 % 1-25 -27 [facility] gel 00:00: 00:00 [place] 00 :00 [facility] Diclofenac 3-0 2023- No [facility] Sodium 1 % 1-25 -27 [facility] of gel 00:00: 00:00 [place] 00 :00 [facility] Diclofenac 2022-0 3- No [facility] Sodium 1 % 1-25 - ity of gel 00:00: 00:00 [place] 00 :00 [facility] Diclofenac 2022-0 2022- No [facility] Sodium 1 % 125 - ity of gel 00:00: 00:00 [place] 00 :00 [facility] Branch ezetimibe 2021-04 Yes 10mg Take 1 [facility] (ZETIA) 10 2-19 tablet by [facility] mg tablet 00:00: mouth [place] 00 the Medical morning. Branch metoprolol 2021-04 Yes [id number] 25mg Take 1 [facility] tartrate 25 2-19 tablet by [facility] mg tablet 00:00: mouth [place] 00 the Medical morning Branch and 1 tablet in the evening. ezetimibe 2021-04 Yes 10mg Take 1 [facility] (ZETIA) 10 2-19 tablet by [facility] mg tablet 00:00: mouth [place] 00 the Medical morning. Branch metoprolol 2021-04 Yes [id number] 25mg Take 1 [facility] tartrate 25 2-19 tablet by [facility] mg tablet 00:00: mouth [place] 00 the Medical morning Branch and 1 tablet in the evening. ezetimibe 2021-04 Yes 10mg Take 1 [facility] (ZETIA) 10 2-19 tablet by [facility] mg tablet 00:00: mouth [place] 00 the Medical morning. Branch metoprolol 2021-04 Yes [id number] 25mg Take 1 [facility] tartrate 25 2-19 tablet by [facility] mg tablet 00:00: mouth [place] 00 the Medical morning Branch and 1 tablet in the evening. ezetimibe 2021-04 Yes 10mg Take 1 [facility] (ZETIA) 10 2-19 tablet by [facility] mg tablet 00:00: mouth [place] 00 the Medical morning. Branch metoprolol 2021-04 Yes [id number] 25mg Take 1 [facility] tartrate 25 2-19 tablet by [facility] mg tablet 00:00: mouth [place] 00 the Medical morning Branch and 1 tablet in the evening. ezetimibe 2021-04 Yes 10mg Take 1 [facility] (ZETIA) 10 2-19 tablet by [facility] mg tablet 00:00: mouth [place] 00 the Medical morning. Branch metoprolol 2021-04 Yes [id number] 25mg Take 1 [facility] tartrate 25 2-19 tablet by [facility] mg tablet 00:00: mouth [place] 00 the Medical morning Branch and 1 tablet in the evening. ezetimibe 2021-04 Yes 10mg Take 1 [facility] (ZETIA) 10 2-19 tablet by [facility] mg tablet 00:00: mouth [place] 00 the Medical morning. Branch metoprolol 2021-04 Yes [id number] 25mg Take 1 [facility] tartrate 25 2-19 tablet by [facility] mg tablet 00:00: mouth [place] 00 the Medical morning Branch and 1 tablet in the evening. ezetimibe 2021-04 Yes 10mg Take 1 [facility] (ZETIA) 10 2-19 tablet by [facility] mg tablet 00:00: mouth [place] 00 the Medical morning. Branch metoprolol 2021-04 Yes [id number] 25mg Take 1 [facility] tartrate 25 [...] s 00 the Medical morning. Branch ezetimibe 2021- Yes 10mg Take 1 [facility] (ZETIA) 10 2-19 tablet by [facility] mg tablet 00:00: mouth [place] 00 the Medical morning. Branch ezetimibe 2021- Yes 10mg Take 1 [facility] [...] s 00 the Medical morning. Branch ezetimibe 2021- Yes 10mg Take 1 [facility] (ZETIA) 10 2-19 tablet by [facility] mg tablet 00:00: mouth [place] 00 the Medical morning. Branch ezetimibe 2021-1 Yes 10mg Take 1 [facility] (ZETIA) 10 2-19 tablet by [facility] mg tablet 00:00: mouth [place] 00 the Medical morning. Branch ezetimibe 2021-04- No 10mg Take 1 [facility] (ZETIA) 10 2-19 04-18 tablet by [facility] of mg tablet 00:00: 00:00 mouth in [place] 00 :00 the Medical morning. Branch metoprolol 2021-04- No [id number] 25mg Take 1 [facility] tartrate 25 2-03 05-26 tablet by it y of mg tablet 00:00: 00:00 mouth in [place] 00 :00 the Medical morning Branch and 1 tablet in the evening. metoprolol 2021-04- No [id number] 25mg Take 1 [facility] tartrate 25 06-03- tablet by it y of mg tablet 00:00: 00:00 mouth in [place] 00 :00 the Medical morning Branch and 1 tablet in the evening. warfarin 2021-04 Yes [id number] 1mg Take 1 [facility] mg tablet 2-01 tablet by ity o f 00:00: mouth [place] 00 every Medical evening. Branch Alternate take 1mg x3 days, then 2mg x 4 days warfarin 2021-04 Yes [id number] 1mg Take 1 [facility] mg tablet 2-01 tablet by ity o f 00:00: mouth [place] 00 every Medical evening. Branch Alternate take 1mg x3 days, then 2mg x 4 days dofetilide 2021-04 Yes [id number] 125ug Take 1 [facility] 125 mcg 2-01 capsule by [facility] of capsule 00:00: mouth [place] 00 every 12 Medical (twelve) Branch hours. warfarin 2021-04 Yes [id number] 1mg Take 1 [facility] mg tablet 2-01 tablet by ity o f 00:00: mouth [place] 00 every Medical evening. Branch Alternate take 1mg x3 days, then 2mg x 4 days dofetilide 2021-04 Yes [id number] 125ug Take 1 [facility] 125 mcg 2-01 capsule by [facility] of capsule 00:00: mouth [place] 00 every 12 Medical (twelve) Branch hours. warfarin 2021-04 Yes [id number] 1mg Take 1 [facility] mg tablet 2-01 tablet by ity o f 00:00: mouth [place] 00 every Medical evening. Branch Alternate take 1mg x3 days, then 2mg x 4 days dofetilide 2021-04 Yes [id number] 125ug Take 1 [facility] 125 mcg 2-01 capsule by [facility] of capsule 00:00: mouth [place] 00 every 12 Medical (twelve) Branch hours. warfarin 2021-04 Yes [id number] 1mg Take 1 [facility] mg tablet 2-01 tablet by ity o f 00:00: mouth [place] 00 every Medical evening. Branch Alternate take 1mg x3 days, then 2mg x 4 days dofetilide 2021-04 Yes [id number] 125ug Take 1 [facility] 125 mcg 2-01 capsule by [facility] of capsule 00:00: mouth [place] 00 every 12 Medical (twelve) Branch hours. warfarin 2021-04 Yes [id number] 1mg Take 1 [facility] mg tablet 2-01 tablet by ity o f 00:00: mouth [place] 00 every Medical evening. Branch Alternate take 1mg x3 days, then 2mg x 4 days dofetilide 2021-04 Yes [id number] 125ug Take 1 [facility] 125 mcg 2-01 capsule by [facility] of capsule 00:00: mouth [place] 00 every 12 Medical (twelve) Branch hours. warfarin 2021-04 Yes [id number] 1mg Take 1 [facility] mg tablet 2-01 tablet by ity o f 00:00: mouth [place] 00 every Medical evening. Branch Alternate take 1mg x3 days, then 2mg x 4 days dofetilide 2021-04 Yes [id number] 125ug Take 1 [facility] 125 mcg 2-01 capsule by [facility]y of capsule 00:00: mouth [place] 00 every 12 Medical (twelve) Branch hours. warfarin 2021-04 Yes [id number] 1mg Take 1 [facility] mg tablet 2-01 tablet by ity o f 00:00: mouth [place] 00 every Medical evening. Branch Alternate take 1mg x3 days, then 2mg x 4 days dofetilide 2021-04 Yes [id number] 125ug Take 1 [facility] 125 mcg 2-01 capsule by [facility] of capsule 00:00: mouth [place] 00 every 12 Medical (twelve) Branch hours. warfarin 2021-04 Yes [id number] 1mg Take 1 [facility] mg tablet 2-01 tablet by ity o f 00:00: mouth [place] 00 every Medical evening. Branch Alternate take 1mg x3 days, then 2mg x 4 days dofetilide 2021-04 Yes [id number] 125ug Take 1 [facility] 125 mcg 2-01 capsule by [facility] of capsule 00:00: mouth [place] 00 every 12 Medical (twelve) Branch hours. warfarin 2021-04 Yes [id number] 1mg Take 1 [facility] mg tablet 2-01 tablet by ity o f 00:00: mouth [place] 00 every Medical evening. Branch Alternate take 1mg x3 days, then 2mg x 4 days dofetilide 2021-04 Yes [id number] 125ug Take 1 [facility] 125 mcg 2-01 capsule by [facility]y of capsule 00:00: mouth [place] 00 every 12 Medical (twelve) Branch hours. warfarin 2021-04 Yes [id number] 1mg Take 1 [facility] mg tablet 2-01 tablet by ity o f 00:00: mouth [place] 00 every Medical evening. Branch Alternate take 1mg x3 days, then 2mg x 4 days dofetilide 2021-04 Yes [id number] 125ug Take 1 [facility] 125 mcg 2-01 capsule by [facility]y of capsule 00:00: mouth [place] 00 every 12 Medical (twelve) Branch hours. warfarin 2021-04 Yes [id number] 1mg Take 1 [facility] mg tablet 2-01 tablet by ity o f 00:00: mouth [place] 00 every Medical evening. Branch Alternate take 1mg x3 days, then 2mg x 4 days dofetilide 2021-04 Yes [id number] 125ug Take 1 [facility] 125 mcg 2-01 capsule by [facility]y of capsule 00:00: mouth [place] 00 every 12 Medical (twelve) Branch hours. warfarin 2021-04 Yes [id number] 1mg Take 1 [facility] mg tablet 2-01 tablet by ity o f 00:00: mouth [place] 00 every Medical evening. Branch Alternate take 1mg x3 days, then 2mg x 4 days dofetilide 2021-04 Yes [id number] 125ug Take 1 [facility] 125 mcg 2-01 capsule by [facility] of capsule 00:00: mouth [place] 00 every 12 Medical (twelve) Branch hours. warfarin 2021-04 Yes [id number] 1mg Take 1 [facility] mg tablet 2-01 tablet by ity o f 00:00: mouth [place] 00 every Medical evening. Branch Alternate take 1mg x3 days, then 2mg x 4 days dofetilide 2021-04 Yes [id number] 125ug Take 1 [facility] 125 mcg 2-01 capsule by [facility] of capsule 00:00: mouth [place] 00 every 12 Medical (twelve) Branch hours. warfarin 2021-04 Yes [id number] 1mg Take 1 [facility] mg tablet 2-01 tablet by ity o f 00:00: mouth [place] 00 every Medical evening. Branch Alternate take 1mg x3 days, then 2mg x 4 days dofetilide 2021-04 Yes [id number] 125ug Take 1 [facility] 125 mcg 2-01 capsule by [facility]y of capsule 00:00: mouth [place] 00 every 12 Medical (twelve) Branch hours. warfarin 2021-04 Yes [id number] 1mg Take 1 [facility] mg tablet 2- tablet by ity o f 00:00: mouth [place] 00 every Medical evening. Branch Alternate take 1mg x3 days, then 2mg x 4 days dofetilide 2021-04 Yes [id number] 125ug Take 1 [facility] 125 mcg 2-01 capsule by [facility]y of capsule 00:00: mouth [place] 00 every 12 Medical (twelve) Branch hours. warfarin 2021-04- No [id number] 1mg Take 1 [facility] mg tablet 2-04 16- tablet by ity of 00:00: 00:00 mouth [place] 00 :00 every Medical evening. Branch Alternate take 1mg x3 days, then 2mg x 4 days dofetilide 2021-04- No [id number] 125ug Take 1 [facility] 125 mcg 2-04 16- capsule by ity o f capsule 00:00: 00:00 mouth [place] 00 :00 every 12 Medical (twelve) Branch hours. warfarin 2021-04- No [id number] 1mg Take 1 [facility] mg tablet 2-04 16- tablet by ity of 00:00: 00:00 mouth [place] 00 :00 every Medical evening. Branch Alternate take 1mg x3 days, then 2mg x 4 days dofetilide 2021-04- No [id number] 125ug Take 1 [facility] 125 mcg 2-04 16- capsule by ity o f capsule 00:00: 00:00 mouth [place] 00 :00 every 12 Medical (twelve) Branch hours. warfarin 2021-04- No [id number] 1mg Take 1 [facility] mg tablet 2-04 16- tablet by ity of 00:00: 00:00 mouth [place] 00 :00 every Medical evening. Branch Alternate take 1mg x3 days, then 2mg x 4 days dofetilide 2021-04- No [id number] 125ug Take 1 [facility] 125 mcg 05-16 capsule by ity o f capsule 00:00: 00:00 mouth [place] 00 :00 every 12 Medical (twelve) Branch hours. warfarin 2021-04- No [id number] 1mg Take 1 [facility] mg tablet 05-16 tablet by ity of 00:00: 00:00 mouth [place] 00 :00 every Medical evening. Branch Alternate take 1mg x3 days, then 2mg x 4 days dofetilide 2021-04- No [id number] 125ug Take 1 [facility] 125 mcg 05-16 capsule by ity o f capsule 00:00: 00:00 mouth [place] 00 :00 every 12 Medical (twelve) Branch hours. warfarin 2021-04- No [id number] 1mg Take 1 [facility] mg tablet 05-16 tablet by ity of 00:00: 00:00 mouth [place] 00 :00 every Medical evening. Branch Alternate take 1mg x3 days, then 2mg x 4 days dofetilide 2021-04- No [id number] 125ug Take 1 [facility] 125 mcg 05-16 capsule by ity o f capsule 00:00: 00:00 mouth [place] 00 :00 every 12 Medical (twelve) Branch hours. warfarin 2021-04 Yes [id number] 1mg Take 1 [facility] mg tablet 1-01 tablet by ity o f 00:00: mouth [place] 00 every Medical evening. Branch Alternate take 1mg x4 days, then 2mg x 3 days warfarin 2021-04 Yes [id number] 1mg Take 1 [facility] mg tablet 1-01 tablet by ity o f 00:00: mouth [place] 00 every Medical evening. Branch Alternate take 1mg x4 days, then 2mg x 3 days warfarin 2021-04 Yes [id number] 1mg Take 1 [facility] mg tablet 1-01 tablet by ity o f 00:00: mouth [place] 00 every Medical evening. Branch Alternate take 1mg x4 days, then 2mg x 3 days warfarin 2021-04 Yes [id number] 1mg Take 1 [facility] mg tablet 1-01 tablet by ity o f 00:00: mouth [place] 00 every Medical evening. Branch Alternate take 1mg x4 days, then 2mg x 3 days warfarin 2021-04 Yes [id number] 1mg Take 1 [facility] mg tablet 1-01 tablet by ity o f 00:00: mouth [place] 00 every Medical evening. Branch Alternate take 1mg x4 days, then 2mg x 3 days warfarin 2021-04 Yes [id number] 1mg Take 1 [facility] mg tablet 1-01 tablet by ity o f 00:00: mouth [place] 00 every Medical evening. Branch Alternate take 1mg x4 days, then 2mg x 3 days warfarin 2021-04 Yes [id number] 1mg Take 1 [facility] mg tablet 1-01 tablet by ity o f 00:00: mouth [place] 00 every Medical evening. Branch Alternate take 1mg x4 days, then 2mg x 3 days warfarin 2021-04 Yes [id number] 1mg Take 1 [facility] mg tablet 1-01 tablet by ity o f 00:00: mouth [place] 00 every Medical evening. Branch Alternate take 1mg x4 days, then 2mg x 3 days warfarin 2021-04 Yes [id number] 1mg Take 1 [facility] mg tablet 1-01 tablet by ity o f 00:00: mouth [place] 00 every Medical evening. Branch Alternate take 1mg x4 days, then 2mg x 3 days warfarin 2021-04 Yes [id number] 1mg Take 1 [facility] mg tablet 1-01 tablet by ity o f 00:00: mouth [place] 00 every Medical evening. Branch Alternate take 1mg x4 days, then 2mg x 3 days warfarin 2021-04 Yes [id number] 1mg Take 1 [facility] mg tablet 1-01 tablet by ity o f 00:00: mouth [place] 00 every Medical evening. Branch Alternate take 1mg x4 days, then 2mg x 3 days warfarin 2021-04 No [id number] 1mg Take 1 [facility] mg tablet 1-01 12- tablet by ity of 00:00: 00:00 mouth [place] 00 :00 every Medical evening. Branch Alternate take 1mg x4 days, then 2mg x 3 days warfarin 2021-04 Yes [id number] 1mg Take 1 [facility] mg tablet 0-17 tablet by ity o f 00:00: mouth [place] 00 every Medical evening. Branch Alternate take 1mg x4 days, then 2mg x 3 days warfarin 2021-04- No [id number] 1mg Take 1 [facility] mg tablet 0-17 11- tablet by ity of 00:00: 00:00 mouth [...] 00 :00 the Medical morning. Branch warfarin Yes [id number] 1mg Take 1 [facility] mg tablet 8-24 tablet by ity o f 00:00: mouth [place] 00 every Medical evening. Branch Alternate take 1mg x2days, then 2mg x 1 day warfarin 1 Yes [id number] 1mg Take 1 [facility] mg tablet 8-24 tablet by ity o f 00:00: mouth [place] 00 every Medical evening. Branch Alternate take 1mg x2days, then 2mg x 1 day warfarin 1 Yes [id number] 1mg Take 1 [facility] mg tablet 8-24 tablet by ity o f 00:00: mouth [place] 00 every Medical evening. Branch Alternate take 1mg x2days, then 2mg x 1 day warfarin 1 0 Yes [id number] 1mg Take 1 [facility] mg tablet 8-24 tablet by ity o f 00:00: mouth [place] 00 every Medical evening. Branch Alternate take 1mg x2days, then 2mg x 1 day warfarin 1 Yes [id number] 1mg Take 1 [facility] mg tablet 8-24 tablet by ity o f 00:00: mouth [place] 00 every Medical evening. Branch Alternate take 1mg x2days, then 2mg x 1 day warfarin 1 Yes [id number] 1mg Take 1 [facility] mg tablet 8-24 tablet by ity o f 00:00: mouth [place] 00 every Medical evening. Branch Alternate take 1mg x2days, then 2mg x 1 day warfarin 1 Yes [id number] 1mg Take 1 [facility] mg tablet 8-24 tablet by ity o f 00:00: mouth [place] 00 every Medical evening. Branch Alternate take 1mg x2days, then 2mg x 1 day warfarin 1 Yes [id number] 1mg Take 1 [facility] mg tablet 8-24 tablet by ity o f 00:00: mouth [place] 00 every Medical evening. Branch Alternate take 1mg x2days, then 2mg x 1 day warfarin 1 Yes [id number] 1mg Take 1 [facility] mg tablet 8-24 tablet by ity o f 00:00: mouth [place] 00 every Medical evening. Branch Alternate take 1mg x2days, then 2mg x 1 day warfarin 1 Yes [id number] 1mg Take 1 [facility] mg tablet 8-24 tablet by ity o f 00:00: mouth [place] 00 every Medical evening. Branch Alternate take 1mg x2days, then 2mg x 1 day warfarin 1 Yes [id number] 1mg Take 1 [facility] mg tablet 8-24 tablet by ity o f 00:00: mouth [place] 00 every Medical evening. Branch Alternate take 1mg x2days, then 2mg x 1 day warfarin 1 Yes [id number] 1mg Take 1 [facility] mg tablet 8-24 tablet by ity o f 00:00: mouth [place] 00 every Medical evening. Branch Alternate take 1mg x2days, then 2mg x 1 day warfarin 1 Yes [id number] 1mg Take 1 [facility] mg tablet 8-24 tablet by ity o f 00:00: mouth [place] 00 every Medical evening. Branch Alternate take 1mg x2days, then 2mg x 1 day warfarin 1 0 2021- No [id number] 1mg Take 1 [facility] mg tablet 8-24 10-17 tablet by ity of 00:00: 00:00 mouth [place] 00 :00 every Medical evening. Branch Alternate take 1mg x2days, then 2mg x 1 day warfarin 1 2021- No [id number] 2mg Take 2 [facility] mg tablet 8-23 08-24 tablets by ity of 00:00: 00:00 mouth [place] 00 :00 every Medical evening. Branch dofetilide 2021- No [id number] 125ug Take 1 [facility] 125 mcg 8-19 08-27 capsule by ity o f capsule 00:00: 04:59 mouth [place] 00 :00 every 12 Medical (twelve) Branch hours for 7 days. dofetilide 2021- No [id number] 125ug Take 1 [facility] 125 mcg 8-19 08-27 capsule by ity o f capsule 00:00: 04:59 mouth [place] 00 :00 every 12 Medical (twelve) Branch hours for 7 days. dofetilide 2021- No [id number] 125ug Take 1 [facility] 125 mcg 8-17 11-16 capsule by ity o f capsule 00:00: 05:59 mouth [place] 00 :00 every 12 Medical (twelve) Branch hours for 90 days. dofetilide 2021- No [id number] 125ug Take 1 [facility] 125 mcg 8-17 11-16 capsule by ity o f capsule 00:00: 05:59 mouth [place] 00 :00 every 12 Medical (twelve) Branch hours for 90 days. dofetilide 2021- No [id number] 125ug Take 1 [facility] 125 mcg 8-17 11-16 capsule by ity o f capsule 00:00: 05:59 mouth [place] 00 :00 every 12 Medical (twelve) Branch hours for 90 days. dofetilide 2021- No [id number] 125ug Take 1 [facility] 125 mcg 8-17 11-16 capsule by ity o f capsule 00:00: 05:59 mouth [place] 00 :00 every 12 Medical (twelve) Branch hours for 90 days. dofetilide 2021- No [id number] 125ug Take 1 [facility] 125 mcg 8-17 11-16 capsule by ity o f capsule 00:00: 05:59 mouth [place] 00 :00 every 12 Medical (twelve) Branch hours for 90 days. dofetilide 2021- No [id number] 125ug Take 1 [facility] 125 mcg 8-17 11-16 capsule by ity o f capsule 00:00: 05:59 mouth [place] 00 :00 every 12 Medical (twelve) Branch hours for 90 days. dofetilide 2021- No [id number] 125ug Take 1 [facility] 125 mcg 8-17 11-16 capsule by ity o f capsule 00:00: 05:59 mouth [place] 00 :00 every 12 Medical (twelve) Branch hours for 90 days. dofetilide 2021- No [id number] 125ug Take 1 [facility] 125 mcg 8-17 11-16 capsule by ity o f capsule 00:00: 05:59 mouth [place] 00 :00 every 12 Medical (twelve) Branch hours for 90 days. dofetilide 2- No [id number] 125ug Take 1 [facility] 125 mcg 8-17 11-16 capsule by ity o f capsule 00:00: 05:59 mouth [place] 00 :00 every 12 Medical (twelve) Branch hours for 90 days. dofetilide 2021- No [id number] 125ug Take 1 [facility] 125 mcg 8-17 11-16 capsule by ity o f capsule 00:00: 05:59 mouth [place] 00 :00 every 12 Medical (twelve) Branch hours for 90 days. dofetilide 2- No [id number] 125ug Take 1 [facility] 125 mcg 8-17 11-16 capsule by ity o f capsule 00:00: 05:59 mouth [place] 00 :00 every 12 Medical (twelve) Branch hours for 90 days. dofetilide 2021- No [id number] 125ug Take 1 [facility] 125 mcg 8-17 11-16 capsule by ity o f capsule 00:00: 05:59 mouth [place] 00 :00 every 12 Medical (twelve) Branch hours for 90 days. dofetilide 2- No [id number] 125ug Take 1 [facility] 125 mcg 8-17 11-16 capsule by ity o f capsule 00:00: 05:59 mouth [place] 00 :00 every 12 Medical (twelve) Branch hours for 90 days. dofetilide 2021- No [id number] 125ug Take 1 [facility] 125 mcg 8-17 11-16 capsule by ity o f capsule 00:00: 05:59 mouth [place] 00 :00 every 12 Medical (twelve) Branch hours for 90 days. dofetilide 2- No [id number] 125ug Take 1 [facility] 125 mcg 8-17 11-16 capsule by ity o f capsule 00:00: 05:59 mouth [place] 00 :00 every 12 Medical (twelve) Branch hours for 90 days. dofetilide 2021- No [id number] 125ug Take 1 [facility] 125 mcg 8-17 11-16 capsule by ity o f capsule 00:00: 05:59 mouth [place] 00 :00 every 12 Medical (twelve) Branch hours for 90 days. dofetilide 2021- No [id number] 125ug Take 1 [facility] 125 mcg 8-17 11-16 capsule by ity o f capsule 00:00: 05:59 mouth [place] 00 :00 every 12 Medical (twelve) Branch hours for 90 days. dofetilide 2021- No [id number] 125ug Take 1 [facility] 125 mcg 8-17 11-16 capsule by ity o f capsule 00:00: 05:59 mouth [place] 00 :00 every 12 Medical (twelve) Branch hours for 90 days. dofetilide 2021- No [id number] 125ug Take 1 [facility] 125 mcg 8-17 11-16 capsule by ity o f capsule 00:00: 05:59 mouth [place] 00 :00 every 12 Medical (twelve) Branch hours for 90 days. dofetilide 2021- No [id number] 125ug Take 1 [facility] 125 mcg 8-17 11-16 capsule by ity o f capsule 00:00: 05:59 mouth [place] 00 :00 every 12 Medical (twelve) Branch hours for 90 days. atorvastati Yes 80mg Take 1 [facility] ers n 80 mg 7-12 tablet by ity of tablet 00:00: mouth at [place] [id number] bedtime. Medical Branch atorvastati Yes 80mg Take 1 [facility] ers n 80 mg 7-12 tablet by ity of tablet 00:00: mouth at [place] [id number] bedtime. Medical Branch atorvastati Yes 80mg Take 1 [facility] ers n 80 mg 7-12 tablet by ity of tablet 00:00: mouth at [place] 00 bedtime. Medical Branch atorvastati Yes 80mg Take 1 [facility] ers n 80 mg 7-12 tablet by ity of tablet 00:00: mouth at [place] [id number] bedtime. Medical Branch atorvastati Yes 80mg Take 1 [facility] ers n 80 mg 7-12 tablet by ity of tablet 00:00: mouth at [place] [address] bedtime. Medical Branch atorvastati 2022-0 Yes 80mg Take 1 [facility] ers n 80 mg 7-12 tablet by ity of tablet 00:00: mouth at [place] [address] bedtime. Medical Branch atorvastati 2-0 Yes 80mg Take 1 [facility] ers n 80 mg 7-12 tablet by ity of tablet 00:00: mouth at [place] [address] bedtime. Medical Branch atorvastati 2-0 Yes 80mg Take 1 [facility] ers n 80 mg 7-12 tablet by ity of tablet 00:00: mouth at [place] [address] bedtime. Medical Branch atorvastati 2-0 Yes 80mg Take 1 [facility] ers n 80 mg 7-12 tablet by ity of tablet 00:00: mouth at [place] [address] bedtime. Medical Branch atorvastati 2-0 Yes 80mg Take 1 [facility] ers n 80 mg 7-12 tablet by ity of tablet 00:00: mouth at [place] [address] bedtime. Medical Branch atorvastati 2-0 Yes 80mg Take 1 [facility] ers n 80 mg 7-12 tablet by ity of tablet 00:00: mouth at [place] [address] bedtime. Medical Branch atorvastati 2-0 Yes 80mg Take 1 [facility] ers n 80 mg 7-12 tablet by ity of tablet 00:00: mouth at [place] [address] bedtime. Medical Branch atorvastati 2-0 Yes 80mg Take 1 [facility] ers n 80 mg 7-12 tablet by ity of tablet 00:00: mouth at [place] [address] bedtime. Medical Branch atorvastati 2-0 Yes 80mg Take 1 [facility] ers n 80 mg 7-12 tablet by ity of tablet 00:00: mouth at [place] [address] bedtime. Medical Branch atorvastati 2-0 Yes 80mg Take 1 [facility] ers n 80 mg 7-12 tablet by ity of tablet 00:00: mouth at [place] [address] bedtime. Medical Branch atorvastati 2022-0 Yes 80mg Take 1 [facility] ers n 80 mg 7-12 tablet by ity of tablet 00:00: mouth at [place] [address] bedtime. Medical Branch atorvastati 2022-0 Yes 80mg Take 1 [facility] ers n 80 mg 7-12 tablet by ity of tablet 00:00: mouth at [place] [address] bedtime. Medical Branch atorvastati 2022-0 Yes 80mg Take 1 [facility] ers n 80 mg 7-12 tablet by ity of tablet 00:00: mouth at [place] [address] bedtime. Medical Branch atorvastati 2-0 Yes 80mg Take 1 [facility] ers n 80 mg 7-12 tablet by ity of tablet 00:00: mouth at [place] [address] bedtime. Medical Branch atorvastati 2-0 Yes 80mg Take 1 [facility] ers n 80 mg 7-12 tablet by ity of tablet 00:00: mouth at [place] [address] bedtime. Medical Branch atorvastati 2-0 Yes 80mg Take 1 [facility] ers n 80 mg 7-12 tablet by ity of tablet 00:00: mouth at [place] bedtime. Medical Branch atorvastati 2-0 Yes 80mg Take 1 [facility] ers n 80 mg 7-12 tablet by ity of tablet 00:00: mouth at [place] [address] bedtime. Medical Branch atorvastati 2-0 Yes 80mg Take 1 [facility] ers n 80 mg 7-12 tablet by ity of tablet 00:00: mouth at [place] [address] bedtime. Medical Branch atorvastati 2-0 Yes 80mg Take 1 [facility] ers n 80 mg 7-12 tablet by ity of tablet 00:00: mouth at [place] [address] bedtime. Medical Branch atorvastati 2-0 Yes 80mg Take 1 [facility] ers n 80 mg 7-12 tablet by it[facility] of tablet 00:00: mouth at [place] [address] bedtime. Medical Branch atorvastati 2-0 Yes 80mg Take 1 [facility] ers n 80 mg 7-12 tablet by ity of tablet 00:00: mouth at [place] [address] bedtime. Medical Branch atorvastati 2-0 Yes 80mg Take 1 [facility] ers n 80 mg 7-12 tablet by it[facility] of tablet 00:00: mouth at [place] [address] bedtime. Medical Branch atorvastati 2-0 Yes 80mg Take 1 [facility] ers n 80 mg 7-12 tablet by it[facility] of tablet 00:00: mouth at [place] [address] bedtime. Medical Branch atorvastati 2-0 Yes 80mg Take 1 [facility] ers n 80 mg 7-12 tablet by ity of tablet 00:00: mouth at [place] [address] bedtime. Medical Branch atorvastati 2022-0 Yes 80mg Take 1 [facility] ers n 80 mg 7-12 tablet by ity of tablet 00:00: mouth at [place] [address] bedtime. Medical Branch atorvastati 2022-0 Yes 80mg Take 1 [facility] ers n 80 mg 7-12 tablet by ity of tablet 00:00: mouth at [place] [address] bedtime. Medical Branch atorvastati 2-0 Yes 80mg Take 1 [facility] n 80 mg 7-12 tablet by [facility] tablet 00:00: mouth at [place] [address] bedtime. [facility] atorvastati 2-0 Yes 80mg Take 1 [facility] 80 mg 7-12 tablet by [facility] of tablet 00:00: mouth at [place] [address] bedtime. [facility] atorvastati 2-0 Yes 80mg Take 1 [facility] n 80 mg 7-12 tablet by [facility] of tablet 00:00: mouth at [place] [address] bedtime. [facility] atorvastati 2-0 Yes 80mg Take 1 [facility] 80 mg 7-12 tablet by [facility] of tablet 00:00: mouth at [place] [address] bedtime. [facility] atorvastati 2-0 Yes 80mg Take 1 [facility] 80 mg 7-12 tablet by [facility] of tablet 00:00: mouth at [place] [address] bedtime. [facility] atorvastati 2-0 Yes 80mg Take 1 [facility] n 80 mg 7-12 tablet by [facility] of tablet 00:00: mouth at [place] [address] bedtime. [facility] atorvastati 2-0 Yes 80mg Take 1 [facility] n 80 mg 7-12 tablet by [facility] of tablet 00:00: mouth at [place] [address] bedtime. [facility] atorvastati 2-0 Yes 80mg Take 1 [facility] 80 mg 7-12 tablet by [facility] of tablet 00:00: mouth at [place] [address] bedtime. [facility] atorvastati 2-0 Yes 80mg Take 1 [facility] 80 mg 7-12 tablet by [facility] of tablet 00:00: mouth at [place] [address] bedtime. [facility] atorvastati 2022-0 Yes 80mg Take 1 [facility] n 80 mg 7-12 tablet by [facility] of tablet 00:00: mouth at [place] [address] bedtime. [facility] atorvastati 2022-0 Yes 80mg Take 1 [facility] n 80 mg 7-12 tablet by [facility] of tablet 00:00: mouth at [place] [address] bedtime. [facility] atorvastati 2022-0 Yes 80mg Take 1 [facility] 80 mg 7-12 tablet by [facility] of tablet 00:00: mouth at [place] [address] bedtime. [facility] atorvastati 2-0 Yes 80mg Take 1 [facility] 80 mg 7-12 tablet by [facility] of tablet 00:00: mouth at [place] [address] bedtime. [facility] atorvastati 2-0 Yes 80mg Take 1 [facility] 80 mg 7-12 tablet by [facility] of tablet 00:00: mouth at [place] [address] bedtime. [facility] atorvastati 2-0 Yes 80mg Take 1 [facility] 80 mg 7-12 tablet by [facility] of tablet 00:00: mouth at [place] bedtime. [facility] atorvastati 2-0 Yes 80mg Take 1 [facility] 80 mg 7-12 tablet by [facility] of tablet 00:00: mouth at [place] [address] bedtime. [facility] atorvastati 2-0 Yes 80mg Take 1 [facility] 80 mg 7-12 tablet by [facility] of tablet 00:00: mouth at [place] [address] bedtime. [facility] atorvastati 2-0 Yes 80mg Take 1 [facility] 80 mg 7-12 tablet by [facility] of tablet 00:00: mouth at [place] [address] bedtime. [facility] atorvastati 2-0 Yes 80mg Take 1 [facility] 80 mg 7-12 tablet by [facility] of tablet 00:00: mouth at [place] [address] bedtime. [facility] atorvastati 2-0 Yes 80mg Take 1 [facility] 80 mg 7-12 tablet by [facility] of tablet 00:00: mouth at [place] [address] bedtime. [facility] atorvastati 2-0 Yes 80mg Take 1 [facility] 80 mg 7-12 tablet by [facility] of tablet 00:00: mouth at [place] [address] bedtime. [facility] atorvastati 2-0 Yes 80mg Take 1 [facility] 80 mg 7-12 tablet by [facility] of tablet 00:00: mouth at [place] [address] bedtime. [facility] atorvastati 2-0 Yes 80mg Take 1 [facility] 80 mg 7-12 tablet by [facility] of tablet 00:00: mouth at [place] [address] bedtime. [facility] atorvastati 2022-0 Yes 80mg Take 1 [facility] 80 mg 7-12 tablet by [facility] of tablet 00:00: mouth at [place] [address] bedtime. [facility] atorvastati 2-0 Yes 80mg Take 1 [facility] 80 mg 7-12 tablet by [facility] of tablet 00:00: mouth at [place] [address] bedtime. [facility] atorvastati 2-0 Yes 80mg Take 1 [facility] 80 mg 7-12 tablet by [facility] of tablet 00:00: mouth at [place] [address] bedtime. [facility] atorvastati 2-0 Yes 80mg Take 1 [facility] 80 mg 7-12 tablet by [facility] of tablet 00:00: mouth at [place] [address] bedtime. [facility] atorvastati 2-0 Yes 80mg Take 1 [facility] 80 mg 7-12 tablet by [facility] of tablet 00:00: mouth at [place] [address] bedtime. [facility] atorvastati 2-0 Yes 80mg Take 1 [facility] 80 mg 7-12 tablet by [facility] of tablet 00:00: mouth at [place] [address] bedtime. [facility] atorvastati 2-0 Yes 80mg Take 1 [facility] 80 mg 7-12 tablet by [facility] of tablet 00:00: mouth at [place] [address] bedtime. [facility] atorvastati 2-0 Yes 80mg Take 1 [facility] 80 mg 7-12 tablet by [facility] of tablet 00:00: mouth at [place] [address] bedtime. [facility] atorvastati 2-0 Yes 80mg Take 1 [facility] 80 mg 7-12 tablet by [facility] of tablet 00:00: mouth at [place] [address] bedtime. [facility] atorvastati 2-0 Yes 80mg Take 1 [facility] 80 mg 7-12 tablet by [facility] of tablet 00:00: mouth at [place] [address] bedtime. [facility] atorvastati 2-0 Yes 80mg Take 1 [facility] 80 mg 7-12 tablet by [facility] of tablet 00:00: mouth at [place] [address] bedtime. [facility] atorvastati 2-0 Yes 80mg Take 1 [facility] 80 mg 7-12 tablet by [facility] of tablet 00:00: mouth at [place] [address] bedtime. [facility] ezetimibe 2-0 Yes 10mg Take 1 [facility] (ZETIA) 10 5-20 tablet by ity of mg tablet 00:00: mouth [place] daily. [facility] ezetimibe 2-0 Yes 10mg Take [...] mg tablet 00:00: mouth [place] 00 daily. [facility] ezetimibe 2022- No 10mg Take 1 [facility] rs (ZETIA) 10 5-20 09-02 tablet by ity of mg tablet 00:00: 00:00 mouth [place] 00 :00 daily. [facility] furosemide 0 Yes [id number] 40mg Take 2 [facility] 20 mg 2-16 02 tablets by it[facility] of tablet 00:00: mouth [place] 00 daily. [facility] furosemide 2021-0 Yes [id number] 40mg Take 2 [facility] 20 mg 2-16 02 tablets by it[facility] of tablet 00:00: mouth [place] 00 daily. [facility] furosemide 2021-0 Yes [id number] 40mg Take 2 [facility] 20 mg 2-16 02 tablets by it[facility] of tablet 00:00: mouth [place] 00 daily. [facility] furosemide 2021-0 Yes [id number] 40mg Take 2 [facility] 20 mg 2-16 02 tablets by [facility] of tablet 00:00: mouth [place] 00 daily. [facility] furosemide 2021-0 Yes [id number] 40mg Take 2 [facility] 20 mg 2-16 02 tablets by it[facility] of tablet 00:00: mouth [place] 00 daily. [facility] furosemide 2021-0 Yes [id number] 40mg Take 2 [facility] 20 mg 2-16 02 tablets by ity of tablet 00:00: mouth [place] 00 daily. [facility] Branch furosemide 2021-0 Yes [id number] 40mg Take 2 [facility] 20 mg 2-16 02 tablets by it[facility] of tablet 00:00: mouth [place] 00 daily. [facility] furosemide 2021-0 Yes [id number] 40mg Take 2 [facility] 20 mg 2-16 02 tablets by ity of tablet 00:00: mouth [place] 00 daily. [facility] furosemide 2021-0 Yes [id number] 40mg Take 2 [facility] 20 mg 2-16 02 tablets by [facility] of tablet 00:00: mouth [place] 00 daily. [facility] furosemide 2021-0 Yes [id number] 40mg Take 2 [facility] 20 mg 2-16 02 tablets by it[facility] of tablet 00:00: mouth [place] 00 daily. [facility] furosemide 2021-0 Yes [id number] 40mg Take 2 [facility] 20 mg 2-16 02 tablets by ity of tablet 00:00: mouth [place] 00 daily. [facility] furosemide 2021-0 Yes [id number] 40mg Take 2 [facility] 20 mg 2-16 02 tablets by ity of tablet 00:00: mouth [place] 00 daily. [facility] furosemide 2021-0 Yes [id number] 40mg Take 2 [facility] 20 mg 2-16 02 tablets by it[facility] of tablet 00:00: mouth [place] 00 daily. [facility] furosemide 2021-0 Yes [id number] 40mg Take 2 [facility] 20 mg 2-16 02 tablets by ity of tablet 00:00: mouth [place] 00 daily. [facility] furosemide 2021-0 Yes [id number] 40mg Take 2 [facility] 20 mg 2-16 02 tablets by [facility] of tablet 00:00: mouth [place] 00 daily. [facility] furosemide 2021-0 Yes [id number] 40mg Take 2 [facility] 20 mg 2-16 02 tablets by [facility] of tablet 00:00: mouth [place] 00 daily. [facility] furosemide 2021-0 Yes [id number] 40mg Take 2 [facility] 20 mg 2-16 02 tablets by [facility] of tablet 00:00: mouth [place] 00 daily. [facility] furosemide 2021-0 Yes [id number] 40mg Take 2 [facility] 20 mg 2-16 02 tablets by [facility] of tablet 00:00: mouth [place] 00 daily. [facility] furosemide 2021-0 Yes [id number] 40mg Take 2 [facility] 20 mg 2-16 02 tablets by [facility] of tablet 00:00: mouth [place] 00 daily. [facility] furosemide 2021-0 Yes [id number] 40mg Take 2 [facility] 20 mg 2-16 02 tablets by [facility] of tablet 00:00: mouth [place] 00 daily. [facility] furosemide 2021-0 Yes [id number] 40mg Take 2 [facility] 20 mg 2-16 02 tablets by [facility] of tablet 00:00: mouth [place] 00 daily. [facility] furosemide 2021-0 Yes [id number] 40mg Take 2 [facility] 20 mg 2-16 02 tablets by [facility] of tablet 00:00: mouth [place] 00 daily. [facility] furosemide 2021-0 Yes [id number] 40mg Take 2 [facility] 20 mg 2-16 02 tablets by [facility] of tablet 00:00: mouth [place] 00 daily. [facility] furosemide 2021-0 Yes [id number] 40mg Take 2 [facility] 20 mg 2-16 02 tablets by ity of tablet 00:00: mouth [place] 00 daily. [facility] furosemide 2021-0 Yes [id number] 40mg Take 2 [facility] 20 mg 2-16 02 tablets by it[facility] of tablet 00:00: mouth [place] 00 daily. [facility] furosemide 2021-0 Yes [id number] 40mg Take 2 [facility] 20 mg 2-16 02 tablets by it[facility] of tablet 00:00: mouth [place] 00 daily. [facility] furosemide 2021-0 Yes [id number] 40mg Take 2 [facility] 20 mg 2-16 02 tablets by ity of tablet 00:00: mouth [place] 00 daily. [facility] furosemide 2021-0 Yes [id number] 40mg Take 2 [facility] 20 mg 2-16 02 tablets by ity of tablet 00:00: mouth [place] 00 daily. [facility] furosemide 2021-0 Yes [id number] 40mg Take 2 [facility] 20 mg 2-16 02 tablets by ity of tablet 00:00: mouth [place] 00 daily. [facility] furosemide 2021-0 Yes [id number] 40mg Take 2 [facility] 20 mg 2-16 02 tablets by ity of tablet 00:00: mouth [place] 00 daily. [facility] furosemide 2021-0 Yes [id number] 40mg Take 2 [facility] 20 mg 2-16 02 tablets by it[facility] of tablet 00:00: mouth [place] 00 daily. [facility] furosemide 2021-0 Yes [id number] 40mg Take 2 [facility] 20 mg 2-16 02 tablets by it[facility] of tablet 00:00: mouth [place] 00 daily. [facility] furosemide 2021-0 Yes [id number] 40mg Take 2 [facility] 20 mg 2-16 02 tablets by [facility] of tablet 00:00: mouth [place] 00 daily. [facility] furosemide 0 Yes [id number] 40mg Take 2 [facility] 20 mg 2-16 02 tablets by it[facility] of tablet 00:00: mouth [place] 00 daily. [facility] furosemide 0 Yes [id number] 40mg Take 2 [facility] 20 mg 2-16 02 tablets by it[facility] of tablet 00:00: mouth [place] 00 daily. [facility] furosemide 0 Yes [id number] 40mg Take 2 [facility] 20 mg 2-16 02 tablets by it[facility] of tablet 00:00: mouth [place] 00 daily. [facility] furosemide 0 Yes [id number] 40mg Take 2 [facility] 20 mg 2-16 02 tablets by ity of tablet 00:00: mouth [place] 00 daily. [facility] furosemide 0 Yes [id number] 40mg Take 2 [facility] 20 mg 2-16 02 tablets by ity of tablet 00:00: mouth [place] 00 daily. [facility] furosemide 0 Yes [id number] 40mg Take 2 [facility] 20 mg 2-16 02 tablets by ity of tablet 00:00: mouth [place] 00 daily. [facility] furosemide 0 Yes [id number] 40mg Take 2 [facility] 20 mg 2-16 02 tablets by ity of tablet 00:00: mouth [place] 00 daily. [facility] Branch furosemide 0 Yes [id number] 40mg Take 2 [facility] 20 mg 2-16 02 tablets by it[facility] of tablet 00:00: mouth [place] 00 daily. [facility] Branch furosemide 0 Yes [id number] 40mg Take 2 [facility] 20 mg 2-16 02 tablets by ity of tablet 00:00: mouth [place] 00 daily. [facility] furosemide 2021-0 2022- No [id number] 40mg Take 2 [facility] 20 mg 2-16 02-27 02 tablets by ity of tablet 00:00: 00:00 mouth [place] 00 :00 daily. [facility] Branch furosemide 2021-0 2022- No [id number] 40mg Take 2 [facility] 20 mg 2-16 02-27 02 tablets by ity of tablet 00:00: 00:00 mouth [place] 00 :00 daily. [facility] Branch furosemide 2021-0 3- No [id number] 40mg Take 2 [facility] 20 mg 2-16 02-27 02 tablets by ity of tablet 00:00: 00:00 mouth [place] 00 :00 daily. [facility] Branch furosemide 2022- No [id number] 40mg Take 2 [facility] 20 mg 2-16 - 02 tablets by ity of tablet 00:00: 00:00 mouth [place] 00 :00 daily. [facility] Branch furosemide 2022- No [id number] 40mg Take 2 [facility] 20 mg 2-16 06-11 02 tablets by it[facility] of tablet 00:00: 00:00 mouth [place] 00 :00 daily. [facility] Branch metoprolol 2020-04 Yes [id number] 25mg Take 1 U nivers tartrate 25 2-15 tablet by ity of mg tablet 00:00: [facility] [place] (two) Medical times Branch daily. metoprolol 2020-04 Yes [id number] 25mg Take 1 U nivers tartrate 25 2-15 tablet by ity of mg tablet 00:00: [facility] [place] (two) Medical times Branch daily. metoprolol 2020-04 Yes [id number] 25mg Take 1 U nivers tartrate 25 2-15 tablet by ity of mg tablet 00:00: [facility] [place] (two) Medical times Branch daily. metoprolol 2020-04 Yes [id number] 25mg Take 1 U nivers tartrate 25 2-15 tablet by ity of mg tablet 00:00: [facility] [place] (two) Medical times Branch daily. metoprolol 2020-04 Yes [id number] 25mg Take 1 U nivers tartrate 25 2-15 tablet by ity of mg tablet 00:00: [facility] [place] (two) Medical times Branch daily. metoprolol 2020-04 Yes [id number] 25mg Take 1 U nivers tartrate 25 2-15 tablet by ity of mg tablet 00:00: [facility] [place] (two) Medical times Branch daily. metoprolol 2020-04 Yes [id number] 25mg Take 1 U nivers tartrate 25 2-15 tablet by ity of mg tablet 00:00: mouth [place] (two) Medical times Branch daily. metoprolol 2020-04 Yes [id number] 25mg Take 1 U nivers tartrate 25 2-15 tablet by ity of mg tablet 00:00: [facility] [place] (two) Medical times Branch daily. metoprolol 2020-04 Yes [id number] 25mg Take 1 U nivers tartrate 25 2-15 tablet by ity of mg tablet 00:00: mouth (two) Medical times Branch daily. metoprolol 2020-04 Yes [id number] 25mg Take 1 U nivers tartrate 25 2-15 tablet by ity of mg tablet 00:00: mouth (two) Medical times Branch daily. metoprolol 2020-04 Yes [id number] 25mg Take 1 [facility] nivers tartrate 25 2-15 tablet by ity of mg tablet 00:00: mouth (two) Medical times Branch daily. metoprolol 2020-04 Yes [id number] 25mg Take 1 U nivers tartrate 25 2-15 tablet by ity of mg tablet 00:00: mouth (two) Medical times Branch daily. metoprolol 2020-04 Yes [id number] 25mg Take 1 U nivers tartrate 25 2-15 tablet by ity of mg tablet 00:00: mouth (two) Medical times Branch daily. metoprolol 2020-04 Yes [id number] 25mg Take 1 U nivers tartrate 25 2-15 tablet by ity of mg tablet 00:00: mouth (two) Medical times Branch daily. metoprolol 2020-04 Yes [id number] 25mg Take 1 U nivers tartrate 25 2-15 tablet by ity of mg tablet 00:00: mouth (two) Medical times Branch daily. metoprolol 2020-04 Yes [id number] 25mg Take 1 U nivers tartrate 25 2-15 tablet by ity of mg tablet 00:00: mouth (two) Medical times Branch daily. metoprolol 2020-04 Yes [id number] 25mg Take 1 U nivers tartrate 25 2-15 tablet by ity of mg tablet 00:00: mouth (two) Medical times Branch daily. metoprolol 2020-04 Yes [id number] 25mg Take 1 U nivers tartrate 25 2-15 tablet by ity of mg tablet 00:00: mouth (two) Medical times Branch daily. metoprolol 2020-04 Yes [id number] 25mg Take 1 U nivers tartrate 25 2-15 tablet by ity of mg tablet 00:00: mouth (two) Medical times Branch daily. metoprolol 2020-04 Yes [id number] 25mg Take 1 U nivers tartrate 25 2-15 tablet by ity of mg tablet 00:00: mouth (two) Medical times Branch daily. metoprolol 2020-04 Yes [id number] 25mg Take 1 U nivers tartrate 25 2-15 tablet by ity of mg tablet 00:00: mouth (two) Medical times Branch daily. metoprolol 2020-04 Yes [id number] 25mg Take 1 [facility] nivers tartrate 25 2-15 tablet by ity of mg tablet 00:00: mouth (two) Medical times Branch daily. metoprolol 2020-04 Yes [id number] 25mg Take 1 [facility] nivers tartrate 25 2-15 tablet by ity of mg tablet 00:00: mouth (two) Medical times Branch daily. metoprolol 2020-04 Yes [id number] 25mg Take 1 [facility] nivers tartrate 25 2-15 tablet by ity of mg tablet 00:00: mouth (two) Medical times Branch daily. metoprolol 2020-04 Yes [id number] 25mg Take 1 [facility] nivers tartrate 25 2-15 tablet by ity of mg tablet 00:00: mouth (two) Medical times Branch daily. metoprolol 2020-04 Yes [id number] 25mg Take 1 [facility] nivers tartrate 25 2-15 tablet by ity of mg tablet 00:00: mouth (two) Medical times Branch daily. metoprolol 2020-04 Yes [id number] 25mg Take 1 U nivers tartrate 25 2-15 tablet by ity of mg tablet 00:00: mouth (two) Medical times Branch daily. metoprolol 2020-04 Yes [id number] 25mg Take 1 U nivers tartrate 25 2-15 tablet by ity of mg tablet 00:00: mouth (two) Medical times Branch daily. metoprolol 2020-04 Yes [id number] 25mg Take 1 [facility] nivers tartrate 25 2-15 tablet by ity of mg tablet 00:00: mouth (two) Medical times Branch daily. metoprolol 2020-04- No [id number] 25mg Take 1 [facility] tartrate 25 2-15 12-19 tablet by it y of mg tablet 00:00: 00:[place] mouth [place] Medical times Branch daily. polyethylen 2020-04 Yes [id number] 17g Take 1 [facility] e glycol 0-29 Packet by ity of 3350 17 00:00: mouth [place] gram powder 00 daily. Medica l Branch polyethylen 2020-04 Yes [id number] 17g Take 1 [facility] e glycol 0-29 Packet by ity of 3350 17 00:00: mouth [place] gram powder 00 daily. Medica l Branch polyethylen 2020-04 Yes [id number] 17g Take 1 [facility] e glycol 0-29 Packet by ity of 3350 17 00:00: mouth [place] gram powder 00 daily. Medica l Branch polyethylen 2020-04 Yes [id number] 17g Take 1 [facility] e glycol 0-29 Packet by ity of 3350 17 00:00: mouth [place] gram powder 00 daily. Medica l Branch polyethylen 2020-04 Yes [id number] 17g Take 1 [facility] e glycol 0-29 Packet by ity of 3350 17 00:00: mouth [place] gram powder 00 daily. Medica l Branch polyethylen 2020-04 Yes [id number] 17g Take 1 [facility] e glycol 0-29 Packet by ity of 3350 17 00:00: mouth [place] gram powder 00 daily. Medica l Branch polyethylen 2020-04 Yes [id number] 17g Take 1 [facility] e glycol 0-29 Packet by ity of 3350 17 00:00: mouth [place] gram powder 00 daily. Medica l Branch polyethylen 2020-04 Yes [id number] 17g Take 1 [facility] e glycol 0-29 Packet by ity of 3350 17 00:00: mouth [place] gram powder 00 daily. Medica l Branch polyethylen 2020-04 Yes [id number] 17g Take 1 [facility] e glycol 0-29 Packet by ity of 3350 17 00:00: mouth [place] gram powder 00 daily. Medica l Branch polyethylen 2020-04 Yes [id number] 17g Take 1 [facility] e glycol 0-29 Packet by ity of 3350 17 00:00: mouth [place] gram powder 00 daily. Medica l Branch polyethylen 2020-04 Yes [id number] 17g Take 1 [facility] e glycol 0-29 Packet by ity of 3350 17 00:00: mouth [place] gram powder 00 daily. Medica l Branch polyethylen 2020-04 Yes [id number] 17g Take 1 [facility] e glycol 0-29 Packet by ity of 3350 17 00:00: mouth [place] gram powder 00 daily. Medica l Branch polyethylen 2020-04 Yes [id number] 17g Take 1 [facility] e glycol 0-29 Packet by ity of 3350 17 00:00: mouth [place] gram powder 00 daily. Medica l Branch polyethylen 2020-04 Yes [id number] 17g Take 1 [facility] e glycol 0-29 Packet by ity of 3350 17 00:00: mouth [place] gram powder 00 daily. Medica l Branch polyethylen 2020-04 Yes [id number] 17g Take 1 [facility] e glycol 0-29 Packet by ity of 3350 17 00:00: mouth [place] gram powder 00 daily. Medica l Branch polyethylen 2020-04 Yes [id number] 17g Take 1 [facility] e glycol 0-29 Packet by ity of 3350 17 00:00: mouth [place] gram powder 00 daily. Medica l Branch polyethylen 2020-04 Yes [id number] 17g Take 1 [facility] e glycol 0-29 Packet by ity of 3350 17 00:00: mouth [place] gram powder 00 daily. Medica l Branch polyethylen 2020-04 Yes [id number] 17g Take 1 [facility] e glycol 0-29 Packet by ity of 3350 17 00:00: mouth [place] gram powder 00 daily. Medica l Branch polyethylen 2020-04 Yes [id number] 17g Take 1 [facility] e glycol 0-29 Packet by ity of 3350 17 00:00: mouth [place] gram powder 00 daily. Medica l Branch polyethylen 2020-04 Yes [id number] 17g Take 1 [facility] e glycol 0-29 Packet by ity of 3350 17 00:00: mouth [place] gram powder 00 daily. Medica l Branch polyethylen 2020-04 Yes [id number] 17g Take 1 [facility] e glycol 0-29 Packet by ity of 3350 17 00:00: mouth [place] gram powder 00 daily. Medica l Branch polyethylen 2020-04 Yes [id number] 17g Take 1 [facility] e glycol 0-29 Packet by ity of 3350 17 00:00: mouth [place] gram powder 00 daily. Medica l Branch polyethylen 2020-04 Yes [id number] 17g Take 1 [facility] e glycol 0-29 Packet by ity of 3350 17 00:00: mouth [place] gram powder 00 daily. Medica l [facility] polyethylen 2020-04 Yes [id number] 17g Take 1 [facility] e glycol 0-29 Packet by ity of 3350 17 00:00: mouth [place] gram powder 00 daily. Medica l Branch polyethylen 2020-04 Yes [id number] 17g Take 1 [facility] e glycol 0-29 Packet by ity of 3350 17 00:00: mouth [place] gram powder 00 daily. Medica l [facility] polyethylen 2020-04 Yes [id number] 17g Take 1 [facility] e glycol 0-29 Packet by ity of 3350 17 00:00: mouth [place] gram powder 00 daily. Medica l [facility] polyethylen 2020-04 Yes [id number] 17g Take 1 [facility] e glycol 0-29 Packet by ity of 3350 17 00:00: mouth [place] gram powder 00 daily. Medica l Branch polyethylen 2020-04 Yes [id number] 17g Take 1 [facility] e glycol 0-29 Packet by ity of 3350 17 00:00: mouth [place] gram powder 00 daily. Medica l Branch polyethylen 2020-04 Yes [id number] 17g Take 1 [facility] e glycol 0-29 Packet by ity of 3350 17 00:00: mouth [place] gram powder 00 daily. Medica l [facility] polyethylen 2020-04 Yes [id number] 17g Take 1 [facility] e glycol 0-29 Packet by ity of 3350 17 00:00: mouth [place] gram powder 00 daily. Medica l Branch polyethylen 2020-04 Yes [id number] 17g Take 1 [facility] e glycol 0-29 Packet by ity of 3350 17 00:00: mouth [place] gram powder 00 daily. Medica l Branch polyethylen 2020-04 Yes [id number] 17g Take 1 [facility] e glycol 0-29 Packet by ity of 3350 17 00:00: mouth [place] gram powder 00 daily. Medica l Branch polyethylen 2021-1 Yes [id number] 17g Take 1 [facility] e glycol 0-29 Packet by ity of 3350 17 00:00: mouth [place] gram powder 00 daily. Medica l [facility] polyethylen 2020-04 Yes [id number] 17g Take 1 [facility] e glycol 0-29 Packet by ity of 3350 17 00:00: mouth [place] gram powder 00 daily. Medica l [facility] polyethylen 2020-04 Yes [id number] 17g Take 1 [facility] e glycol 0-29 Packet by ity of 3350 17 00:00: mouth [place] gram powder 00 daily. Medica l [facility] polyethylen 2020-04 Yes [id number] 17g Take 1 [facility] e glycol 0-29 Packet by ity of 3350 17 00:00: mouth [place] gram powder 00 daily. Medica l Branch polyethylen 2020-04 Yes [id number] 17g Take 1 [facility] e glycol 0-29 Packet by ity of 3350 17 00:00: mouth [place] gram powder 00 daily. Medica l Branch polyethylen 2020-04 Yes [id number] 17g Take 1 [facility] e glycol 0-29 Packet by ity of 3350 17 00:00: mouth [place] gram powder 00 daily. Medica l Branch polyethylen 2020-04 Yes [id number] 17g Take 1 [facility] e glycol 0-29 Packet by ity of 3350 17 00:00: mouth [place] gram powder 00 daily. Medica l Branch polyethylen 2020-04 Yes [id number] 17g Take 1 [facility] e glycol 0-29 Packet by ity of 3350 17 00:00: mouth [place] gram powder 00 daily. Medica l [facility] polyethylen 2020-04 Yes [id number] 17g Take 1 [facility] e glycol 0-29 Packet by ity of 3350 17 00:00: mouth [place] gram powder 00 daily. Medica l Branch polyethylen 2020-04- No [id number] 17g Take 1 [facility] e glycol 0-29 02-22 Packet by ity o f 3350 17 00:00: 00:00 mouth [place] gram powder 00 :00 daily. Medica l Branch polyethylen 2020-04- No [id number] 17g Take 1 [facility] e glycol 0-29 02-22 Packet by ity o f 3350 17 00:00: 00:00 mouth [place] gram powder 00 :00 daily. Medica l Branch polyethylen 2020-043- No [id number] 17g Take 1 [facility] e glycol 0-29 02-22 Packet by ity o f 3350 17 00:00: 00:00 mouth [place] gram powder 00 :00 daily. Medica l Branch docusate 2020-04 Yes [id number] 100mg Take 1 U nivers 100 mg 0-28 capsule by ity of capsule 00:00: mouth (two) Medical times Branch daily. docusate 2020-04 Yes [id number] 100mg Take 1 U nivers 100 mg 0-28 capsule by ity of capsule 00:00: mouth (two) Medical times Branch daily. docusate 2020-04 Yes [id number] 100mg Take 1 U nivers 100 mg 0-28 capsule by ity of capsule 00:00: mouth (two) Medical times Branch daily. docusate 2020-04 Yes [id number] 100mg Take 1 U nivers 100 mg 0-28 capsule by ity of capsule 00:00: mouth (two) Medical times Branch daily. docusate 2020-04 Yes [id number] 100mg Take 1 U nivers 100 mg 0-28 capsule by ity of capsule 00:00: mouth (two) Medical times Branch daily. docusate 2020-04 Yes [id number] 100mg Take 1 U nivers 100 mg 0-28 capsule by ity of capsule 00:00: mouth (two) Medical times Branch daily. docusate 2020-04 Yes [id number] 100mg Take 1 U nivers 100 mg 0-28 capsule by ity of capsule 00:00: mouth (two) Medical times Branch daily. docusate 2020-04 Yes [id number] 100mg Take 1 U nivers 100 mg 0-28 capsule by ity of capsule 00:00: mouth (two) Medical times Branch daily. docusate 2020-04 Yes [id number] 100mg Take 1 U nivers 100 mg 0-28 capsule by [facility] of capsule 00:00: mouth (two) Medical times Branch daily. docusate 2020-04 Yes [id number] 100mg Take 1 [facility] nivers 100 mg 0-28 capsule by ity of capsule 00:00: mouth (two) Medical times Branch daily. docusate 2020-04 Yes [id number] 100mg Take 1 [facility] nivers 100 mg 0-28 capsule by ity of capsule 00:00: mouth (two) Medical times Branch daily. docusate 2020-04 Yes [id number] 100mg Take 1 [facility] nivers 100 mg 0-28 capsule by ity of capsule 00:00: mouth (two) Medical times Branch daily. docusate 2020-04 Yes [id number] 100mg Take 1 [facility] nivers 100 mg 0-28 capsule by ity of capsule 00:00: mouth (two) Medical times Branch daily. docusate 2020-04 Yes [id number] 100mg Take 1 [facility]ivers 100 mg 0-28 capsule by ity of capsule 00:00: mouth (two) Medical times Branch daily. docusate 2020-04 Yes [id number] 100mg Take 1 [facility]ivers 100 mg 0-28 capsule by ity of capsule 00:00: mouth (two) Medical times Branch daily. docusate 2020-04 Yes [id number] 100mg Take 1 [facility]ivers 100 mg 0-28 capsule by ity of capsule 00:00: mouth (two) Medical times Branch daily. docusate 2020-04 Yes [id number] 100mg Take 1 [facility]ivers 100 mg 0-28 capsule by ity of capsule 00:00: mouth (two) Medical times Branch daily. docusate 2020-04 Yes [id number] 100mg Take 1 [facility]ivers 100 mg 0-28 capsule by ity of capsule 00:00: mouth (two) Medical times Branch daily. docusate 2020-04 Yes [id number] 100mg Take 1 [facility]ivers 100 mg 0-28 capsule by ity of capsule 00:00: mouth (two) Medical times Branch daily. docusate 2020-04 Yes [id number] 100mg Take 1 [facility] 100 mg 0-28 capsule by ity of capsule 00:00: mouth (two) Medical times Branch daily. docusate 2020-04 Yes [id number] 100mg Take 1 [facility] 100 mg 0-28 capsule by ity of capsule 00:00: mouth (two) Medical times Branch daily. docusate 2020-04 Yes [id number] 100mg Take 1 [facility] 100 mg 0-28 capsule by ity of capsule 00:00: mouth (two) Medical times Branch daily. docusate 2020-04 Yes [id number] 100mg Take 1 [facility]ivers 100 mg 0-28 capsule by ity of capsule 00:00: mouth (two) Medical times Branch daily. docusate 2020-04 Yes [id number] 100mg Take 1 [facility] 100 mg 0-28 capsule by ity of capsule 00:00: mouth (two) Medical times Branch daily. docusate 2020-04 Yes [id number] 100mg Take 1 [facility] 100 mg 0-28 capsule by ity of capsule 00:00: mouth (two) Medical times Branch daily. docusate 2020-04 Yes [id number] 100mg Take 1 [facility] 100 mg 0-28 capsule by ity of capsule 00:00: mouth (two) Medical times Branch daily. docusate 2020-04 Yes [id number] 100mg Take 1 [facility] 100 mg 0-28 capsule by ity of capsule 00:00: mouth (two) Medical times Branch daily. docusate 2020-04 Yes [id number] 100mg Take 1 [facility]ivers 100 mg 0-28 capsule by ity of capsule 00:00: mouth (two) Medical times Branch daily. docusate 2020-04 Yes [id number] 100mg Take 1 [facility] 100 mg 0-28 capsule by ity of capsule 00:00: mouth (two) Medical times Branch daily. docusate 2020-04 Yes [id number] 100mg Take 1 [facility] 100 mg 0-28 capsule by ity of capsule 00:00: mouth (two) Medical times Branch daily. docusate 2020-04 Yes [id number] 100mg Take 1 [facility] 100 mg 0-28 capsule by ity of capsule 00:00: mouth (two) Medical times Branch daily. docusate 2020-04 Yes [id number] 100mg Take 1 [facility] 100 mg 0-28 capsule by ity of capsule 00:00: mouth [place] (two) Medical times Branch daily. docusate 2020-04 Yes [id number] 100mg Take 1 [facility]ivers 100 mg 0-28 capsule by ity of capsule 00:00: mouth 2 [place] (two) Medical times Branch daily. docusate 2020-04 Yes [id number] 100mg Take 1 [facility] 100 mg 0-28 capsule by ity of capsule 00:00: mouth [place] (two) Medical times Branch daily. docusate 2020-04 Yes [id number] 100mg Take 1 [facility] 100 mg 0-28 capsule by ity of capsule 00:00: mouth [place] (two) Medical times Branch daily. docusate 2020-04 Yes [id number] 100mg Take 1 [facility] 100 mg 0-28 capsule by ity of capsule 00:00: mouth [place] (two) Medical times Branch daily. docusate 2020-04 Yes [id number] 100mg Take 1 [facility] 100 mg 0-28 capsule by ity of capsule 00:00: mouth [place] (two) Medical times Branch daily. docusate 2020-04 Yes [id number] 100mg Take 1 [facility]ivers 100 mg 0-28 capsule by ity of capsule 00:00: mouth [place] (two) Medical times Branch daily. docusate 2020-04 Yes [id number] 100mg Take 1 [facility]ivers 100 mg 0-28 capsule by ity of capsule 00:00: mouth [address] [place] [address] (two) Medical times Branch daily. docusate 2020-04 Yes [id number] 100mg Take 1 [facility] nivers 100 mg 0-28 capsule by ity of capsule 00:00: mouth 2 [place] (two) Medical times Branch daily. docusate 2020-04 Yes [id number] 100mg Take 1 [facility]ivers 100 mg 0-28 capsule by ity of capsule 00:00: mouth 2 [place] (two) Medical times Branch daily. docusate 2020-043- No [id number] 100mg Take 1 [facility] 100 mg 0-28 02-22 capsule by ity of capsule 00:00: 00:00 mouth 2 [place] 00 :00 (two) Medical times Branch daily. docusate 2020-04- No [id number] 100mg Take 1 [facility] 100 mg 0-28 - capsule by ity of capsule 00:00: 00:00 mouth 2 [place] 00 :00 (two) Medical times Branch daily. docusate 2020-04- No [id number] 100mg Take 1 [facility] 100 mg 0-28 - capsule by ity of capsule 00:00: 00:00 mouth 2 [place] 00 :00 (two) Medical times Branch daily. gabapentin 2017-0 Yes Take by [facility] ers 300 mg 4-21 mouth ity of capsule 00:00: daily. [place] [facility] lidocaine 5 2017-0 Yes Univer s % (700 4-21 ity of mg/patch) 00:00: [place] patch [facility] gabapentin 2017-0 Yes Take by [facility] ers 300 mg 4-21 mouth ity of capsule 00:00: daily. [place] [facility] lidocaine 5 2017-0 Yes Univer s % (700 4-21 ity of mg/patch) 00:00: [place] patch [facility] gabapentin 2017-0 Yes Take by [facility] ers 300 mg 4-21 mouth ity of capsule 00:00: daily. [place] [facility] lidocaine 5 2017-0 Yes Univer s % (700 4-21 ity of mg/patch) 00:00: [place] patch [facility] gabapentin 2017-0 Yes Take by [facility] 300 mg 4-21 mouth ity of capsule 00:00: daily. [place] [facility] lidocaine 5 2017-0 Yes Univer s % (700 4-21 ity of mg/patch) 00:00: [place] patch [facility] gabapentin 2017-0 Yes Take by [facility] ers 300 mg 4-21 mouth ity of capsule 00:00: daily. [place] [facility] lidocaine 5 2017-0 Yes Univer s % (700 4-21 ity of mg/patch) 00:00: [place] patch [facility] gabapentin 2017-0 Yes Take by [facility] 300 mg 4-21 mouth ity of capsule 00:00: daily. [place] [facility] lidocaine 5 2017-0 Yes Univer [...] 4-21 mouth ity of capsule 00:00: daily. [place] [facility] lidocaine 5 2017-0 Yes Univer s % (700 4-21 ity of mg/patch) 00:00: [place] patch [facility] gabapentin 2017-0 Yes Take by [facility] 300 mg 4-21 mouth ity of capsule 00:00: daily. [place] [facility] lidocaine 5 2017-0 Yes Univer s % (700 4-21 ity of mg/patch) 00:00: [place] patch [facility] gabapentin 2017-0 Yes Take by [facility] ers 300 mg 4-21 mouth ity of capsule 00:00: daily. [place] [facility] lidocaine 5 2017-0 Yes Univer [...] 4-21 mouth ity of capsule 00:00: daily. [place] [facility] lidocaine 5 2017-0 Yes Univer s % (700 4-21 ity of mg/patch) 00:00: [place] patch 00 [facility] Branch gabapentin 2017-0 Yes Take by [facility] 300 mg 4-21 mouth ity of capsule 00:00: daily. [place] [facility] lidocaine 5 2017-0 Yes Univer s % (700 4-21 ity of mg/patch) 00:00: [place] patch 00 [facility] gabapentin 2017-0 Yes Take by [facility] 300 mg 4-21 mouth ity of capsule 00:00: daily. [place] [facility] lidocaine 5 2017-0 Yes Univer s % (700 4-21 ity of mg/patch) 00:00: [place] patch 00 [facility] gabapentin 2017-0 Yes Take by [facility] 300 mg 4-21 mouth ity of capsule 00:00: daily. [place] [facility] lidocaine 5 2017-0 Yes Univer s % (700 4-21 ity of mg/patch) 00:00: [place] patch [facility] gabapentin 2017-0 Yes Take by [facility] 300 mg 4-21 mouth ity of capsule 00:00: daily. [place] [facility] lidocaine 5 2017-0 Yes Univer s % (700 4-21 ity of mg/patch) 00:00: [place] patch [facility] gabapentin 2017-0 Yes Take by [facility] ers 300 mg 4-21 mouth ity of capsule 00:00: daily. [place] [facility] lidocaine 5 2017-0 Yes Univer s % (700 4-21 ity of mg/patch) 00:00: [place] patch [facility] gabapentin 2017-0 Yes Take by [facility] 300 mg 4-21 mouth ity of capsule 00:00: daily. [place] [facility] lidocaine 5 2017-0 Yes Univer s % (700 4-21 ity of mg/patch) 00:00: [place] patch [facility] gabapentin 2017-0 Yes Take by [facility] 300 mg 4-21 mouth ity of capsule 00:00: daily. [place] [facility] lidocaine 5 2017-0 Yes Univer s % (700 4-21 ity of mg/patch) 00:00: [place] patch [facility] gabapentin 2017-0 Yes Take by [facility] 300 mg 4-21 mouth ity of capsule 00:00: daily. [place] [facility] lidocaine 5 2017-0 Yes Univer s % (700 4-21 ity of mg/patch) 00:00: [place] patch [facility] gabapentin 2017-0 Yes Take by [facility] 300 mg 4-21 mouth ity of capsule 00:00: daily. [place] [facility] lidocaine 5 2017-0 Yes Univer [...] 4-21 mouth ity of capsule 00:00: daily. [place] [facility] lidocaine 5 2017-0 Yes Univer s % (700 4-21 ity of mg/patch) 00:00: [place] patch [facility] gabapentin 2017-0 Yes Take by [facility] ers 300 mg 4-21 mouth ity of capsule 00:00: daily. [place] [facility] lidocaine 5 2017-0 Yes Univer s % (700 4-21 ity of mg/patch) 00:00: [place] patch [facility] gabapentin 2017-0 Yes Take by [facility] ers 300 mg 4-21 mouth ity of capsule 00:00: daily. [place] [facility] lidocaine 5 2017-0 Yes Univer s % (700 4-21 ity of mg/patch) 00:00: [place] patch [facility] gabapentin 2017-0 Yes Take by [facility] 300 mg 4-21 mouth ity of capsule 00:00: daily. [place] [facility] lidocaine 5 2017-0 Yes Univer s % (700 4-21 ity of mg/patch) 00:00: [place] patch [facility] gabapentin 2017-0 Yes Take by [facility] ers 300 mg 4-21 mouth ity of capsule 00:00: daily. [place] [facility] lidocaine 5 2017-0 Yes Univer s % (700 4-21 ity of mg/patch) 00:00: [place] patch [facility] gabapentin 2017-0 Yes Take by [facility] ers 300 mg 4-21 mouth ity of capsule 00:00: daily. [place] [facility] lidocaine 5 2017-0 Yes Univer [...] 4-21 mouth ity of capsule 00:00: daily. [place] [facility] lidocaine 5 2017-0 Yes Univer s % (700 4-21 ity of mg/patch) 00:00: [place] patch [facility] gabapentin 2017-0 Yes Take by [facility] ers 300 mg 4-21 mouth ity of capsule 00:00: daily. [place] [facility] lidocaine 5 2017-0 Yes Univer s % (700 4-21 ity of mg/patch) 00:00: [place] patch [facility] gabapentin 2017-0 Yes Take by [facility] ers 300 mg 4-21 mouth ity of capsule 00:00: daily. [place] [facility] lidocaine 5 2017-0 Yes Univer [...] 4-21 mouth ity of capsule 00:00: daily. [place] [facility] lidocaine 5 2017-0 Yes Univer s % (700 4-21 ity of mg/patch) 00:00: [place] patch 00 [facility] Branch gabapentin 2017-0 Yes Take by [facility] ers 300 mg 4-21 mouth ity of capsule 00:00: daily. [place] [facility] lidocaine 5 2017-0 Yes Univer s % (700 4-21 ity of mg/patch) 00:00: [place] patch 00 [facility] Branch gabapentin 2017-0 Yes Take by [facility] ers 300 mg 4-21 mouth ity of capsule 00:00: daily. [place] [facility] lidocaine 5 2017-0 Yes Univer s % (700 4-21 ity of mg/patch) 00:00: [place] patch 00 [facility] Branch gabapentin 2017-0 Yes Take by [facility] 300 mg 4-21 mouth ity of capsule 00:00: daily. [place] [facility] lidocaine 5 2017-0 Yes Univer s % (700 4-21 ity of mg/patch) 00:00: [place] patch [facility] gabapentin 2017-0 Yes Take by [facility] ers 300 mg 4-21 mouth ity of capsule 00:00: daily. [place] [facility] lidocaine 5 2017-0 Yes Univer s % (700 4-21 ity of mg/patch) 00:00: [place] patch [facility] gabapentin 2017-0 Yes Take by [facility] ers 300 mg 4-21 mouth ity of capsule 00:00: daily. [place] [facility] lidocaine 5 2017-0 Yes Univer s % (700 4-21 ity of mg/patch) 00:00: [place] patch [facility] gabapentin 2017-0 Yes Take by [facility] 300 mg 4-21 mouth ity of capsule 00:00: daily. [place] [facility] lidocaine 5 2017-0 Yes Univer s % (700 4-21 ity of mg/patch) 00:00: [place] patch [facility] gabapentin 2017-0 Yes Take by [facility] 300 mg 4-21 mouth ity of capsule 00:00: daily. [place] [facility] lidocaine 5 2017-0 Yes Univer s % (700 4-21 ity of mg/patch) 00:00: [place] patch [facility] gabapentin 2017-0 Yes Take by [facility] 300 mg 4-21 mouth ity of capsule 00:00: daily. [place] [facility] lidocaine 5 2017-0 Yes Univer s % (700 4-21 ity of mg/patch) 00:00: [place] patch [facility] gabapentin 2017-0 Yes Take by [facility] ers 300 mg 4-21 mouth ity of capsule 00:00: daily. [place] [facility] lidocaine 5 2017-0 Yes Univer [...] 4-21 mouth ity of capsule 00:00: daily. [place] [facility] lidocaine 5 2017-0 Yes Univer s % (700 4-21 ity of mg/patch) 00:00: [place] patch [facility] gabapentin 2017-0 Yes Take by [facility] ers 300 mg 4-21 mouth ity of capsule 00:00: daily. [place] [facility] lidocaine 5 2017-0 Yes Univer s % (700 4-21 ity of mg/patch) 00:00: [place] patch [facility] gabapentin 2017-0 Yes Take by [facility] ers 300 mg 4-21 mouth ity of capsule 00:00: daily. [place] [facility] lidocaine 5 2017-0 Yes Univer s % (700 4-21 ity of mg/patch) 00:00: [place] patch [facility] gabapentin 2017-0 Yes Take by [facility] ers 300 mg 4-21 mouth ity of capsule 00:00: daily. [place] [facility] lidocaine 5 2017-0 Yes Univer s % (700 4-21 ity of mg/patch) 00:00: [place] patch [facility] gabapentin 2017-0 Yes Take by [facility] ers 300 mg 4-21 mouth ity of capsule 00:00: daily. [place] [facility] lidocaine 5 2017-0 Yes Univer s % (700 4-21 ity of mg/patch) 00:00: [place] patch [facility] gabapentin 2017-0 Yes Take by [facility] ers 300 mg 4-21 mouth ity of capsule 00:00: daily. [place] [facility] lidocaine 5 2017-0 Yes Univer [...] 4-21 mouth ity of capsule 00:00: daily. [place] [facility] lidocaine 5 2017-0 Yes Univer s % (700 4-21 ity of mg/patch) 00:00: [place] patch [facility] gabapentin 2017-0 Yes Take by [facility] ers 300 mg 4-21 mouth ity of capsule 00:00: daily. [place] [facility] lidocaine 5 2017-0 Yes Univer s % (700 4-21 ity of mg/patch) 00:00: [place] patch [facility] gabapentin 2017-0 Yes Take by Univ ers 300 mg 4-21 mouth ity of capsule 00:00: daily. [place] [facility] lidocaine 5 2017-0 Yes Univer [...] 4-21 mouth ity of capsule 00:00: daily. [place] [facility] lidocaine 5 2017-0 Yes Univer s % (700 4-21 ity of mg/patch) 00:00: [place] patch 00 [facility] Branch gabapentin 2017-0 Yes Take by Univ ers 300 mg 4-21 mouth ity of capsule 00:00: daily. [place] [facility] lidocaine 5 2017-0 Yes Univer s % (700 4-21 ity of mg/patch) 00:00: [place] patch 00 [facility] Branch pantoprazol 2017-0 Yes Univer s e 40 mg EC 4-14 ity of tablet 00:00: [place] [facility] pantoprazol 2017-0 Yes Univer s e 40 mg EC 4-14 ity of tablet 00:00: [place] [facility] pantoprazol 2017-0 Yes Univer s e 40 mg EC 4-14 ity of tablet 00:00: [place] [facility] pantoprazol 2017-0 Yes Univer s e 40 mg EC 4-14 ity of tablet 00:00: [place] [facility] pantoprazol 2017-0 Yes Univer s e 40 mg EC 4-14 ity of tablet 00:00: [place] [facility] pantoprazol 2017-0 Yes Univer s e 40 mg EC 4-14 ity of tablet 00:00: [place] [facility] pantoprazol 2017-0 Yes Univer s e 40 mg EC 4-14 ity of tablet 00:00: [place] [facility] pantoprazol 2017-0 Yes Univer s e 40 mg EC 4-14 ity of tablet 00:00: [place] [facility] pantoprazol 2017-0 Yes Univer s e 40 mg EC 4-14 ity of tablet 00:00: [place] [facility] pantoprazol 2017-0 Yes Univer s e 40 mg EC 4-14 ity of tablet 00:00: [place] [facility] pantoprazol 2017-0 Yes Univer s e 40 mg EC 4-14 ity of tablet 00:00: [place] [facility] pantoprazol 2017-0 Yes Univer s e 40 mg EC 4-14 ity of tablet 00:00: [place] [facility] pantoprazol 2017-0 Yes Univer s e 40 mg EC 4-14 ity of tablet 00:00: [place] [facility] pantoprazol 2017-0 Yes Univer s e 40 mg EC 4-14 ity of tablet 00:00: [place] [facility] pantoprazol 2017-0 Yes Univer s e 40 mg EC 4-14 ity of tablet 00:00: [place] 00 Medical Branch pantoprazol 2017-0 Yes Univer s e 40 mg EC 4-14 ity of tablet 00:00: [place] [facility] pantoprazol 2017-0 Yes Univer s e 40 mg EC 4-14 ity of tablet 00:00: [place] [facility] pantoprazol 2017-0 Yes Univer s e 40 mg EC 4-14 ity of tablet 00:00: [place] [facility] pantoprazol 2017-0 Yes Univer s e 40 mg EC 4-14 ity of tablet 00:00: [place] [facility] pantoprazol 2017-0 Yes Univer s e 40 mg EC 4-14 ity of tablet 00:00: [place] [facility] Branch pantoprazol 2017-0 Yes Univer s e 40 mg EC 4-14 ity of tablet 00:00: [place] [facility] Branch pantoprazol 2017-0 Yes Univer s e 40 mg EC 4-14 ity of tablet 00:00: [place] [facility] Branch pantoprazol 2017-0 Yes Univer s e 40 mg EC 4-14 ity of tablet 00:00: [address] Branch pantoprazol 2017-0 Yes Univer s e 40 mg EC 4-14 ity of tablet 00:00: [place] [facility] Branch pantoprazol 2017-0 Yes Univer s e 40 mg EC 4-14 ity of tablet 00:00: [place] [facility] Branch pantoprazol 2017-0 Yes Univer s e 40 mg EC 4-14 ity of tablet 00:00: [place] [facility] pantoprazol 2017-0 Yes Univer s e 40 mg EC 4-14 ity of tablet 00:00: [place] [facility] pantoprazol 2017-0 Yes Univer s e 40 mg EC 4-14 ity of tablet 00:00: [place] [address] Medical Branch pantoprazol 2017-0 Yes Univer s e 40 mg EC 4-14 ity of tablet 00:00: [place] [facility] pantoprazol 2017-0 Yes Univer s e 40 mg EC 4-14 ity of tablet 00:00: [place] [facility] pantoprazol 2017-0 Yes Univer s e 40 mg EC 4-14 ity of tablet 00:00: [place] [facility] pantoprazol 2017-0 Yes Univer s e 40 mg EC 4-14 ity of tablet 00:00: [place] 00 Medical Branch pantoprazol 2017-0 Yes Univer s e 40 mg EC 4-14 ity of tablet 00:00: [place] [facility] pantoprazol 2017-0 Yes Univer s e 40 mg EC 4-14 ity of tablet 00:00: [place] [facility] pantoprazol 2017-0 Yes Univer s e 40 mg EC 4-14 ity of tablet 00:00: [place] [facility] Branch pantoprazol 2017-0 Yes Univer s e 40 mg EC 4-14 ity of tablet 00:00: [place] [facility] Branch pantoprazol 2017-0 Yes Univer s e 40 mg EC 4-14 ity of tablet 00:00: [place] [facility] pantoprazol 2017-0 Yes Univer s e 40 mg EC 4-14 ity of tablet 00:00: [address] pantoprazol 2017-0 Yes Univer s e 40 mg EC 4-14 ity of tablet 00:00: [place] [facility] pantoprazol 2017-0 Yes Univer s e 40 mg EC 4-14 ity of tablet 00:00: [address] pantoprazol 2017-0 Yes Univer s e 40 mg EC 4-14 ity of tablet 00:00: [address] Branch pantoprazol 2017-0 Yes Univer s e 40 mg EC 4-14 ity of tablet 00:00: [address] pantoprazol 2017-0 Yes Univer s e 40 mg EC 4-14 ity of tablet 00:00: [address] Branch pantoprazol 2017-0 Yes Univer s e 40 mg EC 4-14 ity of tablet 00:00: [place] [facility] Branch pantoprazol 2017-0 Yes Univer s e 40 mg EC 4-14 ity of tablet 00:00: [place] [facility] Branch pantoprazol 2017-0 Yes Univer s e 40 mg EC 4-14 ity of tablet 00:00: [place] [facility] Branch pantoprazol 2017-0 Yes Univer s e 40 mg EC 4-14 ity of tablet 00:00: [place] [facility] pantoprazol 2017-0 Yes Univer s e 40 mg EC 4-14 ity of tablet 00:00: [place] [facility] Branch pantoprazol 2017-0 Yes Univer s e 40 mg EC 4-14 ity of tablet 00:00: [place] [facility] pantoprazol 2017-0 Yes Univer s e 40 mg EC 4-14 ity of tablet 00:00: [place] [facility] pantoprazol 2017-0 Yes Univer s e 40 mg EC 4-14 ity of tablet 00:00: [place] [facility] pantoprazol 2017-0 Yes Univer s e 40 mg EC 4-14 ity of tablet 00:00: [place] [facility] pantoprazol 2017-0 Yes Univer s e 40 mg EC 4-14 ity of tablet 00:00: [place] [facility] pantoprazol 2017-0 Yes Univer s e 40 mg EC 4-14 ity of tablet 00:00: [place] [facility] pantoprazol 2017-0 Yes Univer s e 40 mg EC 4-14 ity of tablet 00:00: [place] [facility] pantoprazol 2017-0 Yes Univer s e 40 mg EC 4-14 ity of tablet 00:00: [place] [facility] pantoprazol 2017-0 Yes Univer s e 40 mg EC 4-14 ity of tablet 00:00: [place] [facility] pantoprazol 2017-0 Yes Univer s e 40 mg EC 4-14 ity of tablet 00:00: [place] [facility] pantoprazol 2017-0 Yes Univer s e 40 mg EC 4-14 ity of tablet 00:00: [place] [facility] pantoprazol 2017-0 Yes Univer s e 40 mg EC 4-14 ity of tablet 00:00: [place] [facility] pantoprazol 2017-0 Yes Univer s e 40 mg EC 4-14 ity of tablet 00:00: [place] [facility] pantoprazol 2017-0 Yes Univer s e 40 mg EC 4-14 ity of tablet 00:00: [place] [facility] Branch pantoprazol 2017-0 Yes Univer s e 40 mg EC 4-14 ity of tablet 00:00: [place] [facility] pantoprazol 2017-0 Yes Univer s e 40 mg EC 4-14 ity of tablet 00:00: [place] [facility] pantoprazol 2017-0 Yes Univer s e 40 mg EC 4-14 ity of tablet 00:00: [place] [facility] pantoprazol 2017-0 Yes Univer s e 40 mg EC 4-14 ity of tablet 00:00: [address] aspirin 81 2016-1 Yes 81mg Take 1 [...] [place] 00 daily. Medical Branch aspirin 81 2015-04- No 81mg Take 1 Univ ers mg chewable 0-26 02-27 tablet by it y of tablet 00:00: 00:00 mouth [place] 00 :00 daily. Medical Branch aspirin 81 2015-04- No 81mg Take 1 [facility] ers mg chewable 0-26 02-27 tablet by it y of tablet 00:00: 00:00 mouth [place] 00 :00 daily. Medical Branch aspirin 81 2015-04- No 81mg Take 1 Univ ers mg chewable 0-26 02-27 tablet by it y of tablet 00:00: 00:00 mouth [place] 00 :00 daily. Medical Branch aspirin 81 2015-04- No 81mg Take 1 Univ ers mg chewable 0-26 02-27 tablet by it y of tablet 00:00: 00:00 mouth [place] 00 :00 daily. Medical Branch aspirin 81 2015-04- No 81mg Take 1 Univ ers mg chewable 0-26 02-27 tablet by it y of tablet 00:00: 00:00 mouth [place] 00 :00 daily. Medical Branch Immunizations Ordered Filled Immunization Date [...] Time Observation Value Comments Source Systolic blood 2022-06-25 15:38:00 137 mm[Hg] Univer sity of pressure [facility] Diastolic blood 2022-06-25 15:38:00 46 mm[Hg] Unive rsity of pressure [facility] Heart rate 2022-06-25 15:38:00 56 /[facility] Body temperature 2022-06-25 15:38:00 36.11 [facility] 2022-06-25 15:38:00 17 /min [facility] Body height 2022-06-25 15:38:00 160 cm [facility] [place] [facility] Body weight 2022-06-25 15:38:00 46.494 kg [facility] [place] [facility] BMI 2022-06-25 15:38:00 18.16 kg/m2 [facility] [place] [facility] Systolic blood 2022-06-12 13:39:00 124 mm[Hg] Univer sity of pressure [place] [facility] Diastolic blood 2022-06-12 13:39:00 56 mm[Hg] Unive rsity of pressure [facility] Branch Heart rate 2022-06-12 13:39:00 74 /min [facility] [place] [facility] Body temperature 2022-06-12 13:39:00 36.67 Allie [facility] ersity of [facility] Respiratory rate 2022-06-12 13:39:00 18 /min Univ ersity of [facility] Branch Oxygen saturation in 2022-06-12 13:39:00 100 /min [facility] of Arterial blood by [facility] Pulse oximetry Branch Body weight 2022-06-12 10:12:00 46.494 kg [facility] [place] [facility] BMI 2022-06-12 10:12:00 18.16 kg/m2 [facility] [place] [facility] Body height 2022-06-06 23:33:00 160 cm [facility] [place] [facility] HEIGHT 2022-05-18 09:00:00 160 cm WEIGHT 2022-05-18 09:00:00 47.9 kg HEIGHT 2022-05-18 09:00:00 160 cm WEIGHT 2022-05-18 09:00:00 47.9 kg HEIGHT 2022-05-18 09:00:00 160 cm WEIGHT 2022-05-18 09:00:00 47.9 kg Systolic blood 2022-05-10 17:56:00 153 mm[Hg] Univer sity of pressure [facility] Diastolic blood 2022-05-10 17:56:00 47 mm[Hg] Unive rsity of pressure [facility] Heart rate 2022-05-10 17:54:00 68 /min [facility] [place] [facility] Respiratory rate 2022-05-10 17:54:00 20 /min [facility] Body height 2022-05-10 17:54:00 160 cm [facility] Body weight 2022-05-10 17:54:00 46.085 kg [facility] BMI 2022-05-10 17:54:00 18.00 kg/m2 [facility] Oxygen saturation in 2022-05-10 17:54:00 99 /min University of Arterial blood by [facility] Pulse oximetry Branch Systolic blood 2022-02-28 19:10:00 161 mm[Hg] Univer [facility]ity [facility] Diastolic blood 2022-02-28 19:10:00 59 mm[Hg] Unive rsity of [facility] Heart rate 2022-02-28 19:10:00 50 /min [facility] Oxygen saturation in 2022-02-28 19:10:00 100 /min [facility] of Arterial blood by [facility] Pulse oximetry Branch Body temperature 2022-02-28 19:08:00 36.11 Allie [facility] Respiratory rate 2022-02-28 19:08:00 16 /min [facility] Body weight 2022-02-28 19:08:00 49.125 kg [facility] BMI 2022-02-28 19:08:00 19.18 kg/m2 [facility] Systolic blood 2022-06-25 15:38:00 137 mm[Hg] [facility] Diastolic blood 2022-06-25 15:38:00 46 mm[Hg] Unive [facility]ity [facility] Heart rate 2022-06-25 15:38:00 56 /min [facility] Body temperature 2022-06-25 15:38:00 36.11 Allie [facility] Respiratory rate 2022-06-25 15:38:00 17 /min [facility] Body height 2022-06-25 15:38:00 160 cm [facility] Body weight 2022-06-25 15:38:00 46.494 kg [facility] BMI 2022-06-25 15:38:00 18.16 kg/m2 [facility] Systolic blood 2022-06-12 13:39:00 124 mm[Hg] [facility] Diastolic blood 2022-06-12 13:39:00 56 mm[Hg] Unive [facility]ity of [facility] Heart rate 2022-06-12 13:39:00 74 /min Universi [facility] Body temperature 2022-06-12 13:39:00 36.67 Allie [facility] 2022-06-12 13:39:00 18 /min [facility] O[facility] saturation in 2022-06-12 13:39:00 100 /min University Arterial blood by [facility] Pulse oximetry Branch Body weight 2022-06-12 10:12:[address] [facility] BMI 2022-06-12 10:12:00 18.16 kg/m2 [facility] Body height 2022-06-06 23:33:[address] [facility] Systolic blood 2022-05-27 16:06:00 109 mm[Hg] [facility] Diastolic blood 2022-05-27 16:06:00 53 mm[Hg] [facility] Heart rate 2022-05-27 16:03:00 69 /min [facility] Body temperature 2022-05-27 16:03:00 37.11 Allie [facility] Respiratory rate 2022-05-27 16:03:00 17 /min [facility] Oxygen saturation in 2022-05-27 16:03:00 96 /min [facility] Arterial blood by Medical Ce nter Pulse oximetry Systolic blood 2022-05-24 07:00:00 117 mm[Hg] [facility] Diastolic blood 2022-05-24 07:00:00 73 mm[Hg] [facility] S [facility] Heart rate 2022-05-24 07:00:00 81 /min [facility] Body temperature 2022-05-24 07:00:00 36.67 Allie [facility] Respiratory rate 2022-05-24 07:00:00 15 /min [facility] Oxygen saturation in 2022-05-24 07:00:00 96 /min [facility] Arterial blood by Medical Ce [facility]ter Pulse oximetry Systolic blood 2022-05-22 08:00:00 126 mm[Hg] [facility] Diastolic blood 2022-05-22 08:00:00 62 mm[Hg] [facility] Heart rate 2022-05-22 08:00:00 63 /min [facility] Respiratory rate 2022-05-22 08:00:00 24 /min [facility] Oxygen saturation in 2022-05-22 08:00:00 98 /min [facility] Arterial blood by Medical Ce [facility]ter Pulse oximetry Body temperature 2022-05-21 16:00:00 36.67 Allie [facility] Systolic blood 2022-05-21 08:23:00 127 mm[Hg] [facility] Diastolic blood 2022-05-21 08:23:00 65 mm[Hg] [facility] Heart rate 2022-05-21 07:30:00 76 /min [facility] Respiratory rate 2022-05-21 07:30:00 17 /min [facility] Oxygen saturation in 2022-05-21 07:30:00 98 /min [facility] Arterial blood by Medical Ce [facility]ter Pulse oximetry Body temperature 2022-05-21 00:00:00 36.17 Allie [facility] Body height 2022-05-18 09:00:00 160 cm [facility] Body weight 2022-05-18 09:00:00 47.9 kg [facility] BMI 2022-05-18 09:00:00 18.71 kg/m2 [facility] Procedures Procedure Date / Time Performing Clinician Source Performed XR HIPS 2 VW RIGHT 2022-08-01 15:29:05 Joseph Cortes [facility] CONSENT/REFUSAL FOR 2022-08-01 15:11:45 Doctor Unassigned, No Un [facility] DIAGNOSIS AND TREATMENT [facility] ASSIGNMENT OF BENEFITS 2022-08-01 15:11:28 Doctor Unassigned, No [facility] Name [facility] PROTHROMBIN TIME / INR 2022-07-10 14:51:00 Jamaica Dan [facility] CONSENT/REFUSAL FOR 2022-07-10 14:37:14 Doctor Unassigned, No Un iversity [facility] DIAGNOSIS AND TREATMENT Name [facility] CONSENT/REFUSAL FOR 2022-07-10 14:37:14 [facility] ASSIGNMENT OF BENEFITS 2022-07-10 14:36:56 Doctor Unassigned, No [facility] ASSIGNMENT OF BENEFITS 2022-07-10 14:36:56 Doctor Unassigned, No [facility] PROTHROMBIN TIME / INR 2022-06-25 15:22:00 Jamaica Dan [facility] PROTHROMBIN TIME / INR 2022-06-12 08:34:00 [facility] 2022-06-12 08:34:00 [facility] BASIC METABOLIC PANEL 2022-06-12 08:34:00 Omkar eda [facility] (NA, K, CL, CO2, GLUCOSE, Medica l Branch BUN, CREATININE, CA) CBC WITH DIFF 2022-06-12 08:34:00 Omkar eda [facility] ACTIVATED PARTIAL 2022-06-12 08:34:00 Demond [facility] MAGNESIUM 2022-06-12 08:34:00 [facility] BASIC METABOLIC PANEL 2022-06-12 08:34:00 Leslie Espitia [facility] (NA, K, CL, CO2, GLUCOSE, Medica l Branch BUN, CREATININE, CA) CBC WITH DIFF 2022-06-12 08:34:00 Omkar eda [facility] PROTHROMBIN TIME / INR 2022-06-12 08:34:00 [facility] 2022-06-12 08:34[facility]00 [facility] 2022-06-12 02:29:00 Demond [facility] ACTIVATED PARTIAL 2022-06-12 02:29:00 Demond [facility] EXTRA TUBE LT. GREEN 2022-06-12 00:00:00 Mariia Cardona [facility] EXTRA TUBE LT. GREEN 2022-06-12 00:00:00 Mariia Cardona [facility] BLOOD CULTURE SCREEN 2022-06-11 19:48:00 Leslie Espitia [facility] BLOOD CULTURE SCREEN 2022-06-11 19:48:00 Leslie Espitia [facility] BLOOD CULTURE SCREEN 2022-06-11 19:42:00 Leslie Espitia [facility] BLOOD CULTURE SCREEN 2022-06-11 19:42:00 Leslie Espitia [facility] TRANSESOPHAGEAL ECHO 2022-06-11 15:58:00 Juan Francisco [facility] (MARGA) COMPLETE W/ DOPPLER [facility] AND COLOR TRANSESOPHAGEAL ECHO 2022-06-11 15:58:00 Juan Francisco [facility] (MAR[place]) COMPLETE W/ DOPPLER [facility] AND COLOR ACTIVATED PARTIAL 2022-06-11 14:52:00 Demond [facility] ACTIVATED PARTIAL 2022-06-11 14:52:00 Demond [facility] PROTHROMBIN TIME / INR 2022-06-11 08:57:00 Mariia Cardona [facility] BASIC METABOLIC PANEL 2022-06-11 08:57:00 Les Ortega [facility] (NA, K, CL, CO2, GLUCOSE, Medica l Branch BUN, CREATININE, CA) MAGNESIUM 2022-06-11 08:57:00 Les Ortega [facility] ACTIVATED PARTIAL 2022-06-11 08:57:00 Demond [facility] MAGNESIUM 2022-06-11 08:57:00 Les Ortega [facility] BASIC METABOLIC PANEL 2022-06-11 08:57:00 Les Ortega [facility] (NA, K, CL, CO2, GLUCOSE, Medica l Branch BUN, CREATININE, CA) PROTHROMBIN TIME / INR 2022-06-11 08:57:00 Mariia Cardona [facility] ACTIVATED PARTIAL 2022-06-11 08:57:00 Demond [facility] HB ECG ROUTINE & RHYTHM 2022-06-11 07:47:48 Jordan [facility] ACTIVATED PARTIAL 2022-06-10 20:19:00 Demond [facility] ACTIVATED PARTIAL 2022-06-10 20:19:00 Demond [facility] HB ECG ROUTINE & RHYTHM 2022-06-10 16:35:44 Jordan [facility] HB ECG ROUTINE & RHYTHM 2022-06-10 16:35:44 Jordan [facility] MAGNESIUM 2022-06-10 08:20:00 Leslie Espitia [facility] BASIC METABOLIC PANEL 2022-06-10 08:20:00 Leslie Espitia [facility] (NA, K, CL, CO2, GLUCOSE, Medica l Branch BUN, CREATININE, CA) CBC WITH DIFF 2022-06-10 08:20:00 Leslie Espitia [facility] PROTHROMBIN TIME / INR 2022-06-10 08:20:00 Leslie Espitia [facility] ACTIVATED PARTIAL 2022-06-10 08:20:00 Demond [facility] MAGNESIUM 2022-06-10 08:20:00 Leslie Espitia [facility] BASIC METABOLIC PANEL 2022-06-10 08:20:00 Leslie Espitia [facility] (NA, K, CL, CO2, GLUCOSE, Medica l Branch BUN, CREATININE, CA) CBC WITH DIFF 2022-06-10 08:20:00 Leslie Espitia [facility] PROTHROMBIN TIME / INR 2022-06-10 08:20:00 Leslie Espitia [facility] ACTIVATED PARTIAL 2022-06-10 08:20:00 Demond [facility] EKG-12 LEAD 2022-06-10 04:08:10 [facility] 2022-06-09 23:33:00 Demond, [facility] ACTIVATED PARTIAL 2022-06-09 23:33:00 Demond, [facility] ACTIVATED PARTIAL 2022-06-09 22:22:00 Demond, [facility] ACTIVATED PARTIAL 2022-06-09 22:22:00 Demond, [facility] BASIC METABOLIC PANEL 2022-06-09 20:19:00 Demond [facility] (NA, K, CL, CO2, GLUCOSE, Medica l Branch BUN, CREATININE, CA) BASIC METABOLIC PANEL 2022-06-09 20:19:00 Demond [facility] (NA, K, CL, CO2, GLUCOSE, Medica l Branch BUN, CREATININE, CA) HB ECG ROUTINE & RHYTHM 2022-06-09 16:45:40 Demond [facility] HB ECG ROUTINE & RHYTHM 2022-06-09 16:45:40 Demond [facility] MAGNESIUM 2022-06-09 10:03:00 Leslie Espitia [facility] BASIC METABOLIC PANEL 2022-06-09 10:03:00 Omkar eda [facility] (NA, K, CL, CO2, GLUCOSE, Medica l Branch BUN, CREATININE, CA) CBC WITH DIFF 2022-06-09 10:03:00 Leslie Espitia [facility] PROTHROMBIN TIME / INR 2022-06-09 10:03:00 Mari[facility] 2022-06-09 10:03:00 Leslie Espitia [facility] BASIC METABOLIC PANEL 2022-06-09 10:03:00 [facility] ([facility], K, CL, CO2, GLUCOSE, Medica l Branch BUN, CREATININE, CA) CBC WITH DIFF 2022-06-09 10:03:00 [facility] 2022-06-09 10:03:[address] [facility] EKG-12 LEAD 2022-06-09 04:12:20 [facility] 2022-06-09 04:12:20 Kirk Hemyari, [facility] PROTHROMBIN TIME / INR 2022-06-08 17:35:00 Leslie Espitia [facility] PROTHROMBIN TIME / INR 2022-06-08 17:35:00 Leslie Espitia [facility] EKG-12 LEAD 2022-06-08 17:18:35 [facility] 2022-06-08 17:18:35 Kirk Hemyari, [facility] MAGNESIUM 2022-06-08 10:46:00 Leslie Espitia [facility] BASIC METABOLIC PANEL 2022-06-08 10:46:00 [facility] (NA, K, CL, CO2, GLUCOSE, Medica l Branch BUN, CREATININE, CA) CBC WITH DIFF 2022-06-08 10:46:00 Leslie Espitia [facility] MAGNESIUM 2022-06-08 10:46:00 Omkar eda [facility] BASIC METABOLIC PANEL 2022-06-08 10:46:00 Leslie Espitia [facility] (NA, K, CL, CO2, GLUCOSE, Medica l Branch BUN, CREATININE, CA) CBC WITH DIFF 2022-06-08 10:46:00 Leslie Espitiahe [facility] EKG-12 LEAD 2022-06-08 03:55:51 Kirk Connell [facility] EKG-12 LEAD 2022-06-08 03:55:51 Kirk Connell [facility] TRANSTHORACIC ECHO (TTE) 2022-06-07 17:56:10 Kirk Ambrosioadriana [facility] TRANSTHORACIC ECHO (TTE) 2022-06-07 17:56:10 Kirk Connell [facility] HB ECG ROUTINE & RHYTHM 2022-06-07 15:36:46 Leslie Espitia [facility] HB ECG ROUTINE & RHYTHM 2022-06-07 15:36:46 Leslie Espitia [facility] URINE DRUG (LCMSMS) - 2022-06-07 15:01:00 Opal Yen [facility] COMPREHENSIVE DRUG [facility]ly [facility] URINE DRUG (LCMSMS) - 2022-06-07 15:01:00 Opal Yen [facility] COMPREHENSIVE DRUG [facility] CBC WITH DIFF 2022-06-07 10:51:00 Opal Yen [facility] BASIC METABOLIC PANEL 2022-06-07 10:51:00 Opal Yen [facility] (NA, K, CL, CO2, GLUCOSE, Medica l Branch BUN, CREATININE, CA) IRON PANEL 2022-06-07 10:51:00 Opal Yen [facility] BASIC METABOLIC PANEL 2022-06-07 10:51:00 Opal Yen [facility] (NA, K, CL, CO2, GLUCOSE, Medica l Branch BUN, CREATININE, CA) IRON PANEL 2022-06-07 10:51:00 Opal Yen [facility] CBC WITH DIFF 2022-06-07 10:51:00 Opal Yen [facility] BASIC METABOLIC PANEL 2022-06-07 02:29:00 Opal Yen [facility] (NA, K, CL, CO2, GLUCOSE, Medica l Branch BUN, CREATININE, CA) HEPATIC FUNCTION PANEL 2022-06-07 02:29:00 Opal Yen [facility] ([id number]) (ALB,T.PRO,BILI Medical Branch T,BU/BC,ALT,AST,ALK PHOS) MAGNESIUM 2022-06-07 02:29:00 Opal Yen [facility] FOLATE 2022-06-07 02:29:00 Opal Yen [facility] MAGNESIUM 2022-06-07 02:29:00 Opal Yen [facility] FOLATE 2022-06-07 02:29:00 Opal Yen [facility] HEPATIC FUNCTION PANEL 2022-06-07 02:29:00 Opal Yen [facility] ([id number]) (ALB,T.PRO,BILI Medical Branch T,BU/BC,ALT,AST,ALK PHOS) BASIC METABOLIC PANEL 2022-06-07 02:29:00 Opal Yen [facility] (NA, K, CL, CO2, GLUCOSE, Medica l Branch BUN, CREATININE, CA) HB ECG ROUTINE & RHYTHM 2022-06-07 00:50:00 Opal Yen [facility] PROTHROMBIN TIME / INR 2022-06-07 00:33:00 [facility] ACTIVATED PARTIAL 2022-06-07 00:33:00 Opal Yen [facility] CBC WITH DIFF 2022-06-07 00:33:00 Opal Yen [facility] FERRITIN SERUM 2022-06-07 00:33:00 Opal Yen [facility] VITAMIN B12, LEVEL 2022-06-07 00:33:00 Opal Yen [facility] FERRITIN SERUM 2022-06-07 00:33:00 Opal Yen [facility] VITAMIN B12, LEVEL 2022-06-07 00:33:00 Opal Yen [facility] CBC WITH DIFF 2022-06-07 00:33:00 Opal Yen [facility] PROTHROMBIN TIME / INR 2022-06-07 00:33:00 Opal Yen Unive [facility] ACTIVATED PARTIAL 2022-06-07 00:33:00 Opal Yen [facility] PROTHROMBIN TIME / INR 2022-06-06 16:10:00 SyJamaica Ciara [facility]ity [facility] HOSPITAL ADMISSION 2022-06-06 06:01:00 Doctor Unassigned, No Uni versity of [facility] CBC W/PLT COUNT & AUTO 2022-05-27 04:37:00 Rick, [facility] DIFFERENTIAL [place] PROTHROMBIN TIME/INR 2022-05-27 04:37:00 Rick [facility] MAGNESIUM 2022-05-27 04:37:00 [facility]OL[facility] PANEL 2022-05-27 04:37:00 Rubén Meaghanmindy [facility] CBC W/PLT COUNT & AUTO 2022-05-27 04:37:00 Rick, [facility] DIFFERENTIAL [place] APTT 2022-05-26 09:28:00 [facility] [place] CBC W/PLT COUNT & AUTO 2022-05-26 06:27:00 Rick, [facility] PROTHROMBIN TIME/INR 2022-05-26 06:27:00 Rick [facility] MAGNESIUM 2022-05-26 06:27:[address] [facility] BASIC METABOLIC PANEL 2022-05-26 06:27:00 Meaghan [facility] APTT 2022-05-26 06:27:00 [facility] [place] CBC W/PLT COUNT & AUTO 2022-05-26 06:27:00 Rick, [facility] DIFFERENTIAL Center APTT 2022-05-26 00:28:00 [facility] [place] [facility] 2022-05-25 22:25:00 [facility] AP[facility] 2022-05-25 14:41:00 Efrain[facility] AP[facility] 2022-05-25 12:13:00 Efrain, [facility] BASIC METABOLIC PANEL 2022-05-25 07:29:[address] [facility] MAGNESIUM 2022-05-25 07:29:00 Robert, [facility] ECG 12-LEAD 2022-05-25 06:42:59 Unknown, [facility] ECG 12-LEAD 2022-05-25 06:42:59 Robert, [facility] ECG 12-LEAD 2022-05-25 06:42:59 Unknown, [facility] APTT 2022-05-25 05:57:00 [facility] 2022-05-25 04:47:00 Efrain [facility] CBC W/PLT COUNT & AUTO 2022-05-25 03:20:00 Rick, [facility] PROTHROMBIN TIME/INR 2022-05-25 03:20:00 Rick [facility] APTT 2022-05-25 03:20:00 Meaghan [facility] CBC W/PLT COUNT & AUTO 2022-05-25 03:20:00 Rick, [facility] APTT 2022-05-24 20:02:00 Efrain [facility] APTT 2022-05-24 17:36:00 [facility] 2022-05-24 10:31:00 Rick, [facility] APTT 2022-05-24 03:41:00 [facility] AP[facility] 2022-05-24 01:14:00 Efrain [facility] CBC W/PLT COUNT & AUTO 2022-05-24 01:14:00 Rick, [facility] BASIC METABOLIC PANEL 2022-05-24 01:14:00 Rick, [facility] MAGNESIUM 2022-05-24 01:14:00 Rick, [facility] PHOSPHORUS 2022-05-24 01:14:00 Rick, [facility] PROTHROMBIN TIME/INR 2022-05-24 01:14:00 Rick, [facility] CBC W/PLT COUNT & AUTO 2022-05-24 01:14:00 Rick, [facility] APTT 2022-05-23 18:18:[address] [facility] APTT 2022-05-23 16:11:[address] [facility] APTT 2022-05-23 08:24:[address] [facility] CBC W/PLT COUNT & AUTO 2022-05-23 04:23:00 Rick, [facility] BASIC METABOLIC PANEL 2022-05-23 04:23:00 Rick, [facility] MAGNESIUM 2022-05-23 04:23:00 Rick, [facility] PHOSPHORUS 2022-05-23 04:23:00 Rick, [facility] PROTHROMBIN TIME/INR 2022-05-23 04:23:00 Rick, [facility] APTT 2022-05-23 04:23:00 [facility] CBC W/PLT COUNT & AUTO 2022-05-23 04:23:00 Rick, [facility] APTT 2022-05-22 20:49:00 Efrain [facility] HEMOGLOBIN AND HEMATOCRIT 2022-05-22 17:54:00 Rick, [facility] APTT 2022-05-22 13:59:00 [facility] CBC W/PLT COUNT & AUTO 2022-05-22 02:47:00 Rick, [facility] BASIC METABOLIC PANEL 2022-05-22 02:47:00 [facility]-05-22 02:47:00 [facility] PHOS[facility]US 2022-05-22 02:47:00 Rick, [facility] PROTHROMBIN TIME/INR 2022-05-22 02:47:00 Rick [facility] APTT 2022-05-22 02:47:00 SereniBertrand jimenes [facility] Verterra [place] CBC W/PLT COUNT & AUTO 2022-05-22 02:47:00 Rick, [facility] PREPARE RBC 2022-05-21 23:54:00 Vinayak Cook [facility] HEMOGLOBIN AND HEMATOCRIT 2022-05-21 21:35:00 Rick [facility] PROTHROMBIN TIME/INR 2022-05-21 14:45:00 Rick, [facility] APTT 2022-05-21 14:45:00 [facility]D ECHO W/ DOPPLER 2022-05-21 13:06:46 Vitaly Flores [facility] (CW/PW/COLOR) [place] HEMOGLOBIN AND HEMATOCRIT 2022-05-21 12:50:00 Rick [facility] TSH/FREE T4 IF INDICATED 2022-05-21 12:50:00 Efrain [facility] APTT 2022-05-21 08:34:00 [facility] CBC W/PLT COUNT & AUTO 2022-05-21 05:00:00 Rick, [facility] BASIC METABOLIC PANEL 2022-05-21 05:00:00 Rick [facility] MAGNESIUM 2022-05-21 05:00:00 Rick, [facility] PHOSPHORUS 2022-05-21 05:00:00 Rick, [facility] CBC W/PLT COUNT & AUTO 2022-05-21 05:00:00 Rick, [facility] PROTHROMBIN TIME/INR 2022-05-21 01:15:00 Rick, [facility] APTT 2022-05-21 01:15:00 Efrain [facility] HEMOGLOBIN AND HEMATOCRIT 2022-05-20 20:25:00 Rick [facility] PROTHROMBIN TIME/INR 2022-05-20 17:07:00 Rick, [facility] APTT 2022-05-20 17:07:00 [facility] HEMOGLOBIN AND HEMATOCRIT 2022-05-20 13:03:00 Rick, [facility] APTT 2022-05-20 13:02:00 [facility] TRANSFUSE LEUKO-REDUCED 2022-05-20 08:38:00 Damir Joyce [facility] RED BLOOD CELLS Center PREPARE RBC 2022-05-20 08:19:00 AdhiVinayak [facility] APTT 2022-05-20 05:03:00 Efrain [facility] CBC W/PLT COUNT & AUTO 2022-05-20 03:36:00 Rick [facility] BASIC METABOLIC PANEL 2022-05-20 03:36:00 Rick [facility] MAGNESIUM 2022-05-20 03:36:00 Rick, [facility] PHOSPHORUS 2022-05-20 03:36:00 Rick, [facility] PROTHROMBIN TIME/INR 2022-05-20 03:36:00 Rick, [facility] CBC W/PLT COUNT & AUTO 2022-05-20 03:36:00 Rick, [facility] APTT 2022-05-19 22:59:00 Efrain [facility] HEMOGLOBIN AND HEMATOCRIT 2022-05-19 21:17:00 Rio Cabreraine [facility] PROTHROMBIN TIME/INR 2022-05-19 17:05:00 Rick [facility] APTT 2022-05-19 17:05:00 [facility] HEMOGLOBIN AND HEMATOCRIT 2022-05-19 12:11:00 Rick, [facility] PROT[facility]OMBIN TIME/INR 2022-05-19 12:11:00 Efrain [facility] ECG 12-LEAD 2022-05-19 11:39:33 Unknown, Hl7 [facility] ECG 12-LEAD 2022-05-19 11:39:33 Vitaly Flores [facility] ECG 12-LEAD 2022-05-19 11:39:33 Unknown, [facility] POCT-GLUCOSE METER 2022-05-19 05:28:00 Shadi Church [facility] Emilio [place] CBC W/PLT COUNT & AUTO 2022-05-19 03:08:00 Rick [facility] DIFFERENTIAL [place] CBC W/PLT COUNT & AUTO 2022-05-19 03:08:00 Rick [facility] BASIC METABOLIC PANEL 2022-05-19 03:07:00 Rick [facility] MAGNESIUM 2022-05-19 03:07:00 Rick [facility] PHOSPHORUS 2022-05-19 03:07:00 Rick [facility] PROTHROMBIN TIME/INR 2022-05-19 03:07:00 Rick [facility] POCT-GLUCOSE METER 2022-05-18 23:02:00 Vinayak Cook [facility] ECG 12-LEAD 2022-05-18 21:08:01 Unknown, [facility] ECG 12-LEAD 2022-05-18 21:08:01 Claudette Bolden [facility] ECG 12-LEAD 2022-05-18 21:08:01 Unknown, [facility] BUN AND CREATININE 2022-05-18 20:38:00 [facility] W/RATIO [facility] POTASSIUM 2022-05-18 20:38:00 Bandeal [facility] MAGNESIUM 2022-05-18 [facility]:38[facility]ATOCRIT 2022-05-18 20:01:00 Rick [facility] POCT-GLUCOSE METER 2022-05-18 18:56:00 AdhiVinayak [facility] CTA ABDOMEN & PELVIS 2022-05-18 17:42:00 Rick [facility] URINALYSIS W/ REFLEX 2022-05-18 15:23:00 Rick [facility] URINE CULTURE [place] PROTHROMBIN TIME/INR 2022-05-18 15:23:00 Rick [facility] HIGH SENSITIVITY TROPONIN 2022-05-18 15:23:00 Rick [facility] URINE CULTURE 2022-05-18 15:23:00 Rick [facility] CBC (HEMOGRAM ONLY) 2022-05-18 13:05:00 Rick [facility] CALCIUM, IONIZED 2022-05-18 13:05:00 Rick [facility] POCT-GLUCOSE METER 2022-05-18 12:55:00 Sean Graham [facility] Jesus Alberto [place] ABORH, MANUAL 2022-05-18 11:55:00 Floridalma Monsalve [facility] TYPE AND SCREEN, 2022-05-18 11:02:00 Rick [facility] AUTOMATED [place] COMPREHENSIVE METABOLIC 2022-05-18 11:01:00 Rick [facility] PANEL Center MAGNESIUM 2022-05-18 11:01:00 Rick, [facility] PHOSPHORUS 2022-05-18 11:01:00 Rick, [facility] LACTIC ACID, VENOUS 2022-05-18 11:01:00 Rick, [facility] LIPASE 2022-05-18 11:01:00 Rick, [facility] B-TYPE NATRIURETIC FACTOR 2022-05-18 11:01:00 Rick, [facility] (BNP) [place] PT/APTT 2022-05-18 11:00:00 Rick, [facility] FIBRINOGEN 2022-05-18 11:00:00 Rick, [facility] ECG 12-LEAD 2022-05-18 10:34:14 Unknown, Hl7 [facility] ECG 12-LEAD 2022-05-18 10:34:14 Rick, [facility] ECG 12-LEAD 2022-05-18 10:34:14 Unknown, Hl7 [facility] HB ECG ROUTINE & RHYTHM 2022-05-10 17:51:[address] [facility] PROTHROMBIN TIME / INR 2022-05-09 16:24:00 [facility]REF[facility] FOR 2022-05-09 16:13:00 [facility] ASSIGNMENT OF BENEFITS 2022-05-09 16:12:36 Doctor Unassigned, No [facility] [place] ASSIGNMENT OF BENEFITS 2022-05-09 16:12:36 Doctor Unassigned, No [facility] PROTHROMBIN TIME / INR 2022-04-11 15:46:00 [place] Dan [facility] CONSENT/REFUSAL FOR 2022-04-11 15:36:05 [facility] ASSIGNMENT OF BENEFITS 2022-04-11 15:35:52 Doctor Unassigned, No [facility] ASSIGNMENT OF BENEFITS 2022-04-11 15:35:52 Doctor Unassigned, No [facility] MEDICATION CORRESPONDENCE 2022-03-18 06:01:00 Doctor Unassigned, No [facility] PROTHROMBIN TIME / INR 2022-03-14 15:29:00 SyJamaica Ciara [facility] CONSENT/REFUSAL FOR 2022-03-14 15:15:12 [facility] [place] ASSIGNMENT OF BENEFITS 2022-03-14 15:15:00 Doctor Unassigned, No [facility] ASSIGNMENT OF BENEFITS 2022-03-14 15:15:00 Doctor Unassigned, No [facility] CONSENT/REFUSAL FOR 2022-02-28 18:42:52 Doctor Unassigned, No Un iversity [facility] DIAGNOSIS AND TREATMENT [facility] [place] CONSENT/REFUSAL FOR 2022-02-14 14:32:17 [facility]igned, [facility] ASSIGNMENT OF BENEFITS 2022-02-14 14:32:04 Doctor Unassigned, No [facility] ASSIGNMENT OF BENEFITS 2021-12-14 17:04:14 Doctor Unassigned, No [facility] HOSPITAL ADMISSION 2021-11-23 05:01:00 Doctor Unassigned, No Uni [facility] Plan of Care Planned Activity Planned Date Details Comments Source Future Scheduled 2023-05-[address] [facility] Scre[facility] (12+) [code = Tobacco Cessation Counseling and Screening (12+)] Future Scheduled 2023-05-[address] [facility] 00:00:00 [facility] Screening (12+) [code = Tobacco Cessation Counseling and Screening (12+)] Future Scheduled 2023-05-[address] [facility] 00:00:00 [facility] Screening (12+) [code = Tobacco Cessation Counseling and Screening (12+)] Future Scheduled 2023-05-[address] [facility] 00:00:00 [facility] Medical Cent[facility] r Screening (12+) [code = Tobacco Cessation Counseling and Screening (12+)] Future Scheduled 2023-05-[address] [facility] 00:00:00 [facility]ing [facility] Medical Cent[facility] r Screening (12+) [code = Tobacco Cessation Counseling and Screening (12+)] Future Scheduled 2023-05-[address] [facility] 00:00:00 [facility] Medical Cente r Screening (12+) [code = Tobacco Cessation Counseling and Screening (12+)] Future Scheduled 2023-05-[address] [facility] 00:00:00 Counseling [facility] Medical Cente r Screening (12+) [code = Tobacco Cessation Counseling and Screening (12+)] Future Scheduled 2022-12-[address] [facility] 00:00:00 (Season Ended) [code = Medic al Center INFLUENZA VACCINE (Season Ended)] Future Scheduled 2022-12-[address] [facility] 00:00:00 (Season Ended) [code = Medic al Center INFLUENZA VACCINE (Season Ended)] Future Scheduled 2022-04-[address] [facility] 00:00:00 (12+) [code = Medical Center DEPRESSION SCREENING (12+)] Future Scheduled 2022-04-15 FALLS RISK SCREENING [facility] 00:00:00 [code = FALLS RISK Medical C enter SCREENING] Future Scheduled 2022-04-[address] [facility] 00:00:00 (12+) [code = Medical Center DEPRESSION SCREENING (12+)] Future Scheduled 2022-04-15 FALLS RISK SCREENING [facility] 00:00:00 [code = FALLS RISK Medical C enter SCREENING] Future Scheduled 2022-04-[address] [facility] 00:00:00 (12+) [code = Medical Center DEPRESSION SCREENING (12+)] Future Scheduled 2022-04-15 FALLS RISK SCREENING [facility] 00:00:00 [code = FALLS RISK Medical C enter SCREENING] Future Scheduled 2022-04-[address] [facility] 00:00:00 (12+) [code = Medical Center DEPRESSION SCREENING (12+)] Future Scheduled 2022-04-15 FALLS RISK SCREENING [facility] 00:00:00 [code = FALLS RISK Medical C enter SCREENING] Future Scheduled 2022-04-[address] [facility] 00:00:00 (12+) [code = Medical Center DEPRESSION SCREENING (12+)] Future Scheduled 2022-04-15 FALLS RISK SCREENING [facility] 00:00:00 [code = FALLS RISK Medical C enter SCREENING] Future Scheduled 2022-04-[address] [facility] 00:00:00 (12+) [code = Medical Center DEPRESSION SCREENING (12+)] Future Scheduled 2022-04-15 FALLS RISK SCREENING [facility] 00:00:00 [code = FALLS RISK Medical C enter SCREENING] Future Scheduled 2022-04-[address] [facility] 00:00:00 (12+) [code = Medical Center DEPRESSION SCREENING (12+)] Future Scheduled 2022-04-15 FALLS RISK SCREENING [facility] 00:00:00 [code = FALLS RISK Medical C enter SCREENING] Future Scheduled 2021-12-14 INFLUENZA VACCINE (#1) [facility]00 [code = INFLUENZA Medical Ce nter VACCINE (#1)] Future Scheduled 2021-12-14 INFLUENZA VACCINE (#1) [facility]:00:00 [code = INFLUENZA Medical Ce nter VACCINE (#1)] Future Scheduled 2021-12-14 INFLUENZA VACCINE (#1) [facility] 00:00:00 [code = INFLUENZA Medical Ce nter VACCINE (#1)] Future Scheduled 2021-12-14 INFLUENZA VACCINE (#1) [facility] 00:00:00 [code = INFLUENZA Medical Ce nter VACCINE (#1)] Future Scheduled 2021-12-14 INFLUENZA VACCINE (#1) [facility] 00:00:00 [code = INFLUENZA Medical Ce nter VACCINE (#1)] Future Scheduled 2021-04-[address] [facility]:00 WELLNESS (YEAR 2 or Medical Center FIRST YEAR if no IPPE) [code = MEDICARE ANNUAL WELLNESS (YEAR 2 or FIRST YEAR if no IPPE)] Future Scheduled 2021-04-[address] [facility] 00:00:00 WELLNESS (YEAR 2 or Medical Center FIRST YEAR if no IPPE) [code = MEDICARE ANNUAL WELLNESS (YEAR 2 or FIRST YEAR if no IPPE)] Future Scheduled 2021-04-[address] [facility] 00:00:00 WELLNESS (YEAR 2 or Medical Center FIRST YEAR if no IPPE) [code = MEDICARE ANNUAL WELLNESS (YEAR 2 or FIRST YEAR if no IPPE)] Future Scheduled 2021-04-[address] [facility] 00:00:00 WELLNESS (YEAR 2 or Medical Center FIRST YEAR if no IPPE) [code = MEDICARE ANNUAL WELLNESS (YEAR 2 or FIRST YEAR if no IPPE)] Future Scheduled 2021-04-[address] [facility] 00:00:00 WELLNESS (YEAR 2 or Medical Center FIRST YEAR if no IPPE) [code = MEDICARE ANNUAL WELLNESS (YEAR 2 or FIRST YEAR if no IPPE)] Future Scheduled 2021-04-[address] [facility] 00:00:00 WELLNESS (YEAR 2 or Medical Center FIRST YEAR if no IPPE) [code = MEDICARE ANNUAL WELLNESS (YEAR 2 or FIRST YEAR if no IPPE)] Future Scheduled 2021-04-[address] [facility] 00:00:00 WELLNESS (YEAR 2 or Medical Center FIRST YEAR if no IPPE) [code = MEDICARE ANNUAL WELLNESS (YEAR 2 or FIRST YEAR if no IPPE)] Future Scheduled 2018 PNEUMOCOCCAL 65+ YRS ([address] [facility] 00:00:00 - PCV) [code = Medical Cente r PNEUMOCOCCAL 65+ YRS (1 - PCV)] Future Scheduled 2018 PNEUMOCOCCAL 65+ YRS ([address] [facility] 00:00:00 - PCV) [code = Medical Cente r PNEUMOCOCCAL 65+ YRS (1 - PCV)] Future Scheduled 2018 PNEUMOCOCCAL 65+ YRS ([address] [facility] 00:00:00 - PCV) [code = Medical Cente r PNEUMOCOCCAL 65+ YRS (1 - PCV)] Future Scheduled 2018 PNEUMOCOCCAL 65+ YRS ([address] [facility] 00:00:00 - PCV) [code = Medical Cente r PNEUMOCOCCAL 65+ YRS (1 - PCV)] Future Scheduled 2018 PNEUMOCOCCAL 65+ YRS ([address] [facility] 00:00:00 - PCV) [code = Medical Cente r PNEUMOCOCCAL 65+ YRS (1 - PCV)] Future Scheduled 2018 PNEUMOCOCCAL 65+ YRS ([address] [facility] 00:00:00 - PCV) [code = Medical Cente r PNEUMOCOCCAL 65+ YRS (1 - PCV)] Future Scheduled 2018 PNEUMOCOCCAL 65+ YRS ([address] [facility] 00:00:00 - PCV) [code = Medical Cente r PNEUMOCOCCAL 65+ YRS (1 - PCV)] Future Scheduled 2003 SHINGLES VACCINES ([address] [facility] 00:00:00 2) [code = SHINGLES Medical Center VACCINES (1 of 2)] Future Scheduled 2003 SHINGLES VACCINES ([address] [facility] 00:00:00 2) [code = SHINGLES Medical Center VACCINES (1 of 2)] Future Scheduled 2003 SHINGLES VACCINES ([address] [facility] 00:00:00 2) [code = SHINGLES Medical Center VACCINES (1 of 2)] Future Scheduled 2003 SHINGLES VACCINES ([address] [facility] 00:00:00 2) [code = SHINGLES Medical Center VACCINES (1 of 2)] Future Scheduled 2003 SHINGLES VACCINES ([address] [facility] 00:00:00 2) [code = SHINGLES Medical Center VACCINES (1 of 2)] Future Scheduled 2003 SHINGLES VACCINES ([address] [facility] 00:00:00 2) [code = SHINGLES Medical Center VACCINES (1 of 2)] Future Scheduled 2003 SHINGLES VACCINES ([address] [facility] 00:00:00 2) [code = SHINGLES Medical Center VACCINES (1 of 2)] Future Scheduled 1972 DTAP/TDAP/TD [facility]ACCINES [facility]:00 (1 - Tdap) [code = Medical C enter DTAP/TDAP/TD VACCINES (1 - Tdap)] Future Scheduled 1972 DTAP/TDAP/TD [facility]ACCINES [facility] 00:00:00 (1 - Tdap) [code = Medical C enter DTAP/TDAP/TD VACCINES (1 - Tdap)] Future Scheduled 1972 DTAP/TDAP/TD [facility]ACCINES [facility] 00:00:00 (1 - Tdap) [code = Medical C enter DTAP/TDAP/TD VACCINES (1 - Tdap)] Future Scheduled 1972 DTAP/TDAP/TD VACCINES [facility] 00:00:00 (1 - Tdap) [code = Medical C enter DTAP/TDAP/TD VACCINES (1 - Tdap)] Future Scheduled 1972 DTAP/TDAP/TD VACCINES [facility] 00:00:00 (1 - Tdap) [code = Medical C enter DTAP/TDAP/TD VACCINES (1 - Tdap)] Future Scheduled 1972 DTAP/TDAP/TD VACCINES [facility] 00:00:00 (1 - Tdap) [code = Medical C enter DTAP/TDAP/TD VACCINES (1 - Tdap)] Future Scheduled 1972 DTAP/TDAP/TD VACCINES [facility] 00:00:00 (1 - Tdap) [code = Medical C enter DTAP/TDAP/TD VACCINES (1 - Tdap)] Future Scheduled 1971 HEPATITIS C [facility]CRE[facility]ING [facility]00 [code = HEPATITIS C Medical Center SCREENING] Future Scheduled 1971 HEPATITIS C [facility]CRE[facility]ING [facility]:00:00 [code = HEPATITIS C Medical Center SCREENING] Future Scheduled 1971 HEPATITIS C [facility]ING [facility]:00:00 [code = HEPATITIS C Medical Center SCREENING] Future Scheduled 1971 HEPATITIS C [facility]ING [facility] 00:00:00 [code = HEPATITIS C Medical Center SCREENING] Future Scheduled 1971 HEPATITIS C [facility]ING [facility] 00:00:00 [code = HEPATITIS C Medical Center SCREENING] Future Scheduled 1971 HEPATITIS C [facility]ING [facility] 00:00:00 [code = HEPATITIS C Medical Center SCREENING] Future Scheduled 1971 HEPATITIS C [facility]ING [facility]:00:00 [code = HEPATITIS C Medical Center SCREENING] Future Scheduled 1953 COVID-19 VACCINE (#1) [facility]:00 [code = COVID-[address] VACCINE (#1)] Future Scheduled 1953 COVID-19 VACCINE (#1) [facility]:00:00 [code = COVID-[address] VACCINE (#1)] Future Scheduled 1953 COVID-19 VACCINE (#1) [facility]:00:00 [code = COVID-[address] VACCINE (#1)] Future Scheduled 1953 COVID-19 VACCINE (#1) [facility] 00:00:00 [code = COVID-[address] VACCINE (#1)] Future Scheduled 1953 COVID-19 VACCINE (#1) [facility] 00:00:00 [code = COVID-[address] VACCINE (#1)] Future Scheduled 1953 COVID-19 VACCINE (#1) [facility] 00:00:00 [code = COVID-[address] VACCINE (#1)] Future Scheduled 1953 COVID-19 VACCINE (#1) [facility] 00:00:00 [code = COVID-[address] VACCINE (#1)] Future Scheduled 1953 Screening for malignant [facility] 00:00:00 neoplasm of breast Medical C enter (procedure) [code = 499046676] Future Scheduled 1953 CT Colonography (combo) [facility] 00:00:00 [code = CT Colonography [facility] (combo)] Future Scheduled 1953 Screening for malignant [facility] 00:00:00 neoplasm of colon Medical Ce nter (procedure) [code = 085858039] Future Scheduled 1953 Screening for malignant [facility] 00:00:00 neoplasm of colon Medical Ce nter (procedure) [code = 858607058] Future Scheduled 1953 DXA SCAN [code = DXA [facility] 00:00:00 SCAN] [facility] Future Scheduled 1953 Screening for malignant [facility] 00:00:00 neoplasm of colon Medical Ce nter (procedure) [code = 681853661] Future Scheduled 1953 Screening for malignant [facility] 00:00:00 neoplasm of colon Medical Ce nter (procedure) [code = 149403029] Future Scheduled 1953 Sigmoidoscopy [code = [facility] Future Scheduled 1953 Screening for malignant [facility] 00:00:00 neoplasm of breast Medical C enter (procedure) [code = 042251947] Future Scheduled 1953 CT Colonography (combo) [facility] 00:00:00 [code = CT Colonography [facility] (combo)] Future Scheduled 1953 Screening for malignant [facility] 00:00:00 neoplasm of colon Medical Ce nter (procedure) [code = 977885236] Future Scheduled 1953 Screening for malignant [facility] 00:00:00 neoplasm of colon Medical Ce nter (procedure) [code = 584464128] Future Scheduled 1953 DXA SCAN [code = DXA [facility] 00:00:00 SCAN] [facility] Future Scheduled 1953 Screening for malignant [facility] 00:00:00 neoplasm of colon Medical Ce nter (procedure) [code = 414176451] Future Scheduled 1953 Screening for malignant [facility] 00:00:00 neoplasm of colon Medical Ce nter (procedure) [code = 225197720] Future Scheduled 1953 Sigmoidoscopy [code = [facility] Future Scheduled 1953 Screening for malignant [facility] 00:00:00 neoplasm of breast Medical C enter (procedure) [code = 970966090] Future Scheduled 1953 CT Colonography (combo) [facility] 00:00:00 [code = CT Colonography [facility] (combo)] Future Scheduled 1953 Screening for malignant [facility] 00:00:00 neoplasm of colon Medical Ce nter (procedure) [code = 969825682] Future Scheduled 1953 Screening for malignant [facility] 00:00:00 neoplasm of colon Medical Ce nter (procedure) [code = 663083078] Future Scheduled 1953 DXA SCAN [code = DXA [facility] 00:00:00 SCAN] [facility] Future Scheduled 1953 Screening for malignant [facility] 00:00:00 neoplasm of colon Medical Ce nter (procedure) [code = 967041541] Future Scheduled 1953 Screening for malignant [facility] 00:00:00 neoplasm of colon Medical Ce nter (procedure) [code = 877434240] Future Scheduled 1953 Sigmoidoscopy [code = [facility] 1953 Screening for malignant [facility] 00:00:00 neoplasm of breast Medical C enter (procedure) [code = 213598786] Future Scheduled 1953 CT Colonography (combo) [facility] 00:00:00 [code = CT Colonography [facility] (combo)] Future Scheduled 1953 Screening for malignant [facility] 00:00:00 neoplasm of colon Medical Ce nter (procedure) [code = 904773607] Future Scheduled 1953 Screening for malignant [facility] 00:00:00 neoplasm of colon Medical Ce nter (procedure) [code = 565383750] Future Scheduled 1953 DXA SCAN [code = DXA [facility] 00:00:00 SCAN] [facility] Future Scheduled 1953 Screening for malignant [facility] 00:00:00 neoplasm of colon Medical Ce nter (procedure) [code = 025892956] Future Scheduled 1953 Screening for malignant [facility] 00:00:00 neoplasm of colon Medical Ce nter (procedure) [code = 273906133] Future Scheduled 1953 Sigmoidoscopy [code = [facility]] [facility] Future Scheduled 1953 Screening for malignant [facility] 00:00:00 neoplasm of breast Medical C enter (procedure) [code = 043615835] Future Scheduled 1953 CT Colonography (combo) [facility] 00:00:00 [code = CT Colonography [facility] (combo)] Future Scheduled 1953 Screening for malignant [facility] 00:00:00 neoplasm of colon Medical Ce nter (procedure) [code = 988633623] Future Scheduled 1953 Screening for malignant [facility] 00:00:00 neoplasm of colon Medical Ce nter (procedure) [code = 990405293] Future Scheduled 1953 DXA SCAN [code = DXA [facility] 00:00:00 SCAN] [facility] Future Scheduled 1953 Screening for malignant [facility] 00:00:00 neoplasm of colon Medical Ce nter (procedure) [code = 970633897] Future Scheduled 1953 Screening for malignant [facility] 00:00:00 neoplasm of colon Medical Ce nter (procedure) [code = 066903400] Future Scheduled 1953 Sigmoidoscopy [code = [facility]] [facility] 1953 Screening for malignant [facility] 00:00:00 neoplasm of breast Medical C enter (procedure) [code = 998198114] Future Scheduled 1953 CT Colonography (combo) [facility] 00:00:00 [code = CT Colonography [facility] (combo)] Future Scheduled 1953 Screening for malignant [facility] 00:00:00 neoplasm of colon Medical Ce nter (procedure) [code = 659798694] Future Scheduled 1953 Screening for malignant [facility] 00:00:00 neoplasm of colon Medical Ce nter (procedure) [code = 229107385] Future Scheduled 1953 DXA SCAN [code = DXA [facility] 00:00:00 SCAN] [facility] Future Scheduled 1953 Screening for malignant [facility] 00:00:00 neoplasm of colon Medical Ce nter (procedure) [code = 036817682] Future Scheduled 1953 Screening for malignant [facility] 00:00:00 neoplasm of colon Medical Ce nter (procedure) [code = 100836385] Future Scheduled 1953 Sigmoidoscopy [code = [facility]] [facility] Future [facility] 1953 Screening for malignant [facility] 00:00:00 neoplasm of breast Medical C enter (procedure) [code = 469328506] Future Scheduled 1953 CT Colonography (combo) [facility] 00:00:00 [code = CT Colonography [facility] (combo)] Future Scheduled 1953 Screening for malignant [facility] 00:00:00 neoplasm of colon Medical Ce nter (procedure) [code = 170739576] Future Scheduled 1953 Screening for malignant [facility] 00:00:00 neoplasm of colon Medical Ce nter (procedure) [code = 137342174] Future Scheduled 1953 DXA SCAN [code = DXA [facility] 00:00:00 SCAN] [facility] Center Future Scheduled 1953 Screening for malignant [facility] 00:00:00 neoplasm of colon Medical Ce nter (procedure) [code = 781746506] Future Scheduled 1953 Screening for malignant [facility] 00:00:00 neoplasm of colon Medical Ce nter (procedure) [code = 448130980] Future Scheduled 1953 Sigmoidoscopy [code = [facility] Start End Encounter Admission Attending Care Care Encounter Source Date/Time Date/Time Type Type Clinicians Facility Department ID 2022-08-16 [facility] [id number] Common 12:00:01 DANIEL [id number] [facility] 2022-08-15 Outpatient IBRAHIM, STLMLC [facility] [id number] Common 15:12:01 DANIEL [id number] [facility] 2022-08-14 Outpatient Dobson[facility] [id number] Common 08:50:01 Saurabh [id number] [facility] 2022-06-05 Inpatient R MARIIA CARDONA [facility] [id number] Univers 07:56:00 MARIIA CARDONA itjake [facility] 2021-11-20 Inpatient R REBECA HOLCOMB [facility] [id number] Univers 15:24:28 REBECA HOLCOMB i [facility] 2021-09-21 Outpatient Dobson[facility] [id number] Common 10:27:03 Saurabh [id number] [facility] 2022-11-08 2022-11-08 Outpatient R HIMA [facility] [id number] Univers 08:00:00 08:00:00 WAYNE ity of [facility] 2022-08-28 2022-08-28 [facility] [id number] Univers 13:00:00 13:00:00 ROGERZAHEER ity o f [facility] 2022-08-01 2022-08-01 [facility] [id number] Univers 10:11:06 23:59:00 JOSEPH ity of [facility] 2022-08-01 2022-08-01 [facility] [id number] Univers 10:11:06 23:59:00 Encounter Joseph Judi ROSI [id number] [id number] [id number] [facility] [address] 2022-08-01 2022-08-01 Office [facility] [id number] Univers 15:50:00 16:00:00 Visit Rogerzaheer KENANTON [id number] [id number] [id number] Nj dical NAL 059 [facility] 2022-08-01 2022-08-01 Visual Aid Expert Farnaz, Adc Lab Main [facility] [id number] [facility] 11:00:00 11:15:00 Visit Sy [place] ARANDA [id number] [id number] [id number] Nj dical NAL 353 [facility] 2022-08-01 2022-08-01 Telephone [facility] [id number] Univers 00:00:00 00:00:00 Rogerzaheer [place] 350.1.13.10 ity of [place] [id number] N[place] dical NAL 059 [facility] 2022-07-31 2022-07-31 Telephone [facility] 1.2.831.184 [id number] Univers 00:00:00 00:00:00 Qiajuan [place] 350.1.13.10 ity of [place].686 [place] [id number] Nj dical NAL 059 [facility] 2022-07-10 2022-07-10 Office Sy, 1.2.840.4 [id number] Univers 13:00:00 14:24:58 Visit [place] 00151.1.1 ity of 3.104.2.7 [place] .3.780340 Medica l .8 [place] 2022-07-10 2022-07-10 Outpatient R SY, [facility] [id number] Univers 13:00:00 13:00:00 [place] perez o f [facility] 2022-07-10 2022-07-10 Visual Aid Expert [place] Dan 1.2.840.1 [id number] Univers 10:00:00 10:15:00 Visit Pob, Adc Lab Main 80930.1.1 ity of 3.104.2.7 [place] .3.836600 Medica l .8 [place] 2022-07-10 2022-07-10 Orders Doctor 1.2.840.4 [id number] Univers 00:00:00 00:00:00 Only Unassigned, 47589.1.1 ity of [place] 3.104.2.7 [place] .3.079747 Medica l .8 [place] 2022-07-10 2022-07-10 Telephone Sy, 1.2.840.0 [id number] Univers 00:00:00 00:00:00 [place] 19150.1.1 ity of 3.104.2.7 [place] .3.763339 Medica l .8 [place] 2022-06-25 2022-06-25 Outpatient R SY, [facility] [id number] Univers 15:40:00 16:09:43 [place] perez o f [facility] 2022-06-25 2022-06-25 Office Sy, 1.2.840.2 [id number] Univers 15:40:00 16:09:43 Visit [place] 39045.1.1 ity of 3.104.2.7 [place] .3.753444 Medica l .8 [place] 2022-06-25 2022-06-25 Visual Aid Expert [place] Dan 1.2.840.1 [id number] [facility] 11:45:00 12:00:00 Visit Farnaz, [facility] Lab Main 97087.1.1 ity of 3.104.2.7 [place] .3.488596 Medica l .8 Branch 2022-06-25 2022-06-25 Office Sy, 1.2.840.6 [id number] 76024 6222 [facility] 11:20:00 11:20:00 Visit [place] 69051.1.1 ity of 3.104.2.7 [place] .3.426105 Medica l .8 Branch 2022-06-25 2022-06-25 Telephone Sy, 1.2.840.2 [id number] Univers 00:00:00 00:00:00 [place] 15274.1.1 ity of 3.104.2.7 [place] .3.679302 Medica l .8 Branch 2022-06-25 2022-06-25 Travel 1.2.840.1 1.2.094.726 [id number] [id number] Univers 00:00:00 00:00:00 36840.1.1 350.1.13.10 ity of 3.104.2.7 4.2.7.3.698 [place] .3.201925 084.8 Medica l .8 Branch 2022-06-13 2022-06-13 Transition Isaak, 1.2.840.2 [id number] Univers 00:00:00 00:00:00 of Care Jeremy A 33043.1.1 it y of 3.104.2.7 [place] .3.329232 Medica l .8 Branch 2022-06-06 2022-06-12 Inpatient R MARIIA CARDONA [facility] [id number] [facility] 17:19:00 12:24:00 MARIIA CARDONA ity of [facility] 2022-06-06 2022-06-12 Hospital Kirk Connell, 1.2.840.8 [id number] Univers 17:19:00 12:24:00 Encounter Mariia 05516.1.1 it y of 3.104.2.7 [place] .3.445757 Medica l .8 Branch 2022-06-06 2022-06-06 Visual Aid Expert [place] Dan 1.2.840.1 [id number] [facility] 10:15:00 10:30:00 Visit Pob, Adc Lab Main 27451.1.1 ity of [place], [place] 3.104.2.7 [place] .3.535951 Medica l .8 Branch 2022-06-06 2022-06-06 Telephone Sy, 1.2.840.7 [id number] Univers 00:00:00 00:00:00 [place] 39876.1.1 ity of 3.104.2.7 [place] .3.550414 Medica l .8 Branch 2022-06-06 2022-06-06 Travel 1.2.840.1 1.2.075.876 [id number] Univers 00:00:00 00:00:00 41965.1.1 350.1.13.10 ity of 3.104.2.7 4.2.7.3.698 [place] .3.256543 084.8 Medica l .8 Branch 2022-06-05 2022-06-05 Telephone Sewani, 1.2.840.5 [id number] 100 [id number] Univers 00:00:00 00:00:00 Wayne 86033.1.1 ity of 3.104.2.7 [place] .3.538662 Medica l .8 Branch 2022-05-29 2022-05-29 Telephone Sewani, 1.2.840.6 [id number] Univers 00:00:00 00:00:00 [place] 26791.1.1 ity of 3.104.2.7 [place] .3.977926 Medica l .8 Branch 2022-05-18 2022-05-27 [facility] Sean Graham [facility] [id number] [facility] 08:42:00 16:40:00 Encounter Adhi, Vinayak Evans [facility], [facility], [facility], [facility] Benjamin Diane Kimberly Ann 2022-05-18 2022-05-27 Inpatient ER RUBÉN, [facility] Medical ICU 5 [id number] [facility] 08:42:00 16:40:00 MEAGHAN 2022-05-18 2022-05-27 Hospital ER Sean Graham [facility] [id number] [facility] 08:42:00 16:40:00 Encounter Adhi, Vinayak Evans [facility], [facility], [facility], Benjamin Modi Kimberly Ann 2022-05-19 2022-05-19 Travel [facility] [id number] [facility] 00:[facility] 00:00:00 [facility] 2022-05-19 2022-05-19 Travel [facility] [id number] [facility] 00:[facility] 00:00:00 [facility] 2022-05-18 2022-05-[address] [facility] [id number] 00:00:00 00:00:00 Only [facility] 2022-05-18 2022-05-[address] [facility] [id number] 00:00:00 00:00:00 [facility] 2022-05-18 2022-05-[address] [facility] [id number] 00:00:00 00:00:00 Only [facility] 2022-05-18 2022-05-[address] [facility] [id number] 00:00:00 00:00:00 [facility] 2022-05-10 2022-05-10 Outpatient R HIMA [facility] [id number] Univers 11:40:00 12:05:03 WAYNE jake [facility] 2022-05-10 2022-05-10 Office [facility], 1.2.840.3 [id number] Univers 11:40:00 12:05:03 Visit Wayne 21427.1.1 ity of 3.104.2.7 [place] .3.510877 Medica l .8 [place] 2022-05-10 2022-05-10 Travel 1.2.840.1 1.2.791.525 [id number] [id number] Univers 00:00:00 00:00:00 79862.1.1 350.1.13.10 ity of 3.104.2.7 4.2.7.3.698 [place] .3.982078 084.8 Medica l .8 [place] 2022-05-09 2022-05-09 Visual Aid Expert [place] 1.2.840.1 [id number] Univers 10:30:00 10:45:00 Visit Pob, Adc Lab Main 53443.1.1 ity of 3.104.2.7 [place] .3.013035 Medica l .8 [place] 2022-05-09 2022-05-09 [facility] [id number] Univers 10:30:00 10:30:00 [place] perez o f [facility] 2022-05-09 2022-05-09 Orders Doctor 1.2.840.4 [id number] Univers 00:00:00 00:00:00 Only Unassigned, 31560.1.1 ity of [place] 3.104.2.7 [place] .3.403813 Medica l .8 [place] 2022-05-09 2022-05-09 Telephone Sy 1.2.840.9 [id number] Univers 00:00:00 00:00:00 [place] 13265.1.1 ity of 3.104.2.7 [place] .3.174794 Medica l .8 [place] 2022-04-12 2022-04-12 Outpatient Joan [facility] [id number] Univers 11:00:00 11:00:00 WAYNE ity of [facility] 2022-04-12 2022-04-12 Outpatient R [facility] [id number] Univers 11:00:00 11:00:00 WAYNE ity of [facility] 2022-04-11 2022-04-11 Visual Aid Expert [place] 1.2.840.1 [id number] Univers 09:45:00 10:00:00 Visit Pob, Adc Lab Main 35322.1.1 ity of 3.104.2.7 [place] .3.319543 Medica l .8 [place] 2022-04-11 2022-04-11 Outpatient R SY [facility] [id number] Univers 09:45:00 09:45:00 [place] ity o f [facility] 2022-04-11 2022-04-11 Orders Doctor 1.2.840.6 [id number] Univers 00:00:00 00:00:00 Only Unassigned, 94661.1.1 ity of [place] 3.104.2.7 [place] .3.153767 Medica l .8 [place] 2022-04-11 2022-04-11 Telephone Sy, 1.2.840.4 [id number] Univers 00:00:00 00:00:00 Qiangzaheer 69520.1.1 ity of 3.104.2.7 [place] .3.616776 Medica l .8 [place] 2022-03-30 2022-03-30 Refill Sy, 1.2.840.1 [id number] Univers 00:00:00 00:00:00 [place] 16568.1.1 ity of 3.104.2.7 [place] .3.533829 Medica l .8 [place] 2022-03-15 2022-03-15 Telephone Sewani, 1.2.840.3 [id number] [id number] Univers 00:00:00 00:00:00 [place] 66213.1.1 ity of 3.104.2.7 [place] .3.078299 Medica l .8 [place] 2022-03-14 2022-03-14 Visual Aid Expert [place] 1.2.840.1 [id number] Univers 09:30:00 09:45:00 Visit Pob, Adc Lab Main 72632.1.1 ity of 3.104.2.7 [place] .3.781681 Medica l .8 [place] 2022-03-14 2022-03-14 Outpatient R SY, [facility] [id number] Univers 09:30:00 09:30:00 [place] scotty o f [facility] 2022-03-14 2022-03-14 Orders Doctor 1.2.840.7 [id number] Univers 00:00:00 00:00:00 Only Unassigned, 16343.1.1 ity of [place] 3.104.2.7 [place] .3.674723 Medica l .8 [place] 2022-03-14 2022-03-14 Telephone Sy, 1.2.840.1 [id number] Univers 00:00:00 00:00:00 Qiajuan 63044.1.1 ity of 3.104.2.7 [place] .3.324823 Medica l .8 [place] 2022-02-28 2022-02-28 Visual Aid Expert 1, Adc Lab [facility] 1.2.840.114 [id number] Univers 13:30:00 13:45:00 Visit [place] DanJAVIER 350.1.13.10 ity of [place] 4.2.7.2.686 [facility] [place] [phone] [address] 2022-02-28 2022-02-28 Outpatient R SY, [facility] [id number] Univers 13:00:00 13:20:24 CATRINAMERZAHEER ana o f [facility] 2022-02-28 2022-02-28 Office Sy, [facility] 1.2.840.114 [id number] Univers 13:00:00 13:20:24 Visit Catrinamerzaheer GRAYSONJAVIER 350.1.13.10 ity of [facility] 4.2.7.2.686 [facility] [phone] Nj dical NAL 059 [facility] 2022-02-28 2022-02-28 Outpatient R SY, [facility] [id number] Univers 13:00:00 13:00:00 [place] scotty o f [facility] 2022-02-28 2022-02-28 Outpatient R [facility] [id number] Univers 13:00:00 13:00:00 [place] perez o abigail [facility] 2022-02-28 2022-02-28 Outpatient [facility] [id number] Univers 13:00:00 13:00:00 [place] perez o abigail [facility] 2022-02-28 2022-02-28 Orders Doctor JOHANN 1.2.840.114 [id number] Univers 00:00:00 00:00:00 Only Unassigned, MIKE 350.1.13.10 ity of [place] [facility] 4.2.7.2.686 Babak as [id number] [address] 2022-02-28 2022-02-28 Telephone [facility] 1.2.698.717 [id number] Univers 00:00:00 00:00:00 [place] ROSI 350.1.13.10 ity [facility] 4.2.7.2.[place] [id number] Nj dical NAL 059 [facility] 2022-02-14 2022-02-14 Visual Aid Expert Farnaz, Adc Lab Main [facility] 1.2.8 40.114 [id number] Univers 09:45:00 10:00:00 Visit [place] Dan 350.1.13.10 ity of [facility] 4.2.7.2.[place] [phone] Nj dical NAL 353 [facility] 2022-02-14 2022-02-14 Outpatient R [facility] [id number] Univers 09:45:00 09:45:00 [place] hayes [facility] 2022-02-14 2022-02-14 Orders Doctor JOHANN 1.2.840.114 [id number] Univers 00:00:00 00:00:00 Only Unassigned, MIKE 350.1.13.10 ity of [place] [facility] 4.2.7.2.686 Babak as [id number] [address] 2022-02-14 2022-02-14 Telephone [facility] 1.2.942.004 [id number] Univers 00:00:00 00:00:00 Qiajuan [place] 350.1.13.10 ity of [place] 4.2.7.2.[place] [phone] Nj dickirk NAL 059 [facility] 2022-02-13 2022-02-13 Refill [facility] 1.2.840.114 [id number] Univers 00:00:00 00:00:00 Qiangzaheer [place] 350.1.13.10 ity of [place] 4[place]2.7.2.[place] [id number] [facility] NAL 9 [facility] 2022-01-27 2022-01-27 Telephone [facility] 1.2.105.070 [id number] Univers 00:00:00 00:00:00 Qiajuan [place] 350.1.13.10 ity of [place] 4.2.7.2.[place] [id number] [facility] NAL 9 [facility] 2022-01-25 2022-01-25 Visual Aid Expert Farnaz, Adc Lab Main [facility] 1.2.8 40.114 [id number] Univers 08:45:00 09:00:00 Visit [place] Dan 350.1.13.10 ity of [place] 4.2.7.2.[place] [id number] [address] 2022-01-25 2022-01-25 Outpatient R [facility] [id number] Univers 08:45:00 08:45:00 [place] scotty o f [facility] 2022-01-19 2022-01-19 Visual Aid Expert Farnaz, Adc Lab Main [facility] 1.2.8 40.114 [id number] Univers 12:30:00 12:45:00 Visit [place] Dan 350.1.13.10 ity of [place] 4.2.7.2.[place] [phone] Nj dical NAL [address] [place] [address] 2022-01-19 2022-01-19 Outpatient R [facility] [id number] Univers 12:30:00 12:30:00 [place] ity o f [facility] 2022-01-19 2022-01-19 [facility] 1.2.875.414 [id number] Univers 00:00:00 00:00:00 Qiamerzaheer [place] 350.1.13.10 ity of [place] 4.2.7.2.[place] [id number] [place] 919849 [facility] 2022-01-17 2022-01-17 Visual Aid Expert Farnaz, Adc Lab Main [facility] 1.2.8 40.114 [id number] Univers 08:45:00 09:00:00 Visit Sy [place] ARANDA 350.1.13.10 ity of [place] 4.2.7.2.686 [place] [id number] [address] 2022-01-17 2022-01-17 Outpatient R [facility] [id number] Univers 08:45:00 08:45:00 [place] perez o f [facility] 2022-01-17 2022-01-17 [facility] 1.2.973.407 [id number] Univers 00:00:00 00:00:00 [place]YS[place] 350.1.13.10 ity of [place] 4.2.7.2.[place] [id number] [address] 2021-12-28 2021-12-28 Visual Aid Expert Farnaz, Adc Lab Main [facility] 1.2.8 40.114 [id number] Univers 10:30:00 10:45:00 Visit Yolande Santacruz 350.1.13.10 ity of [place] 4.2.7.2.[place] [id number] [address] 2021-12-28 2021-12-28 Outpatient R [facility] [id number] Univers 10:30:00 10:30:00 YOLANDE itjake [facility] 2021-12-28 2021-12-28 Telephone YANY Dan 1.2.960.603 [id number] Univers 00:00:00 00:00:00 [place] PEDIATRIC 350.1.13.10 [place] of [place]2.7.2.686 [place] [id number] [facility] [address] [facility] 2021-12-15 2021-12-15 Telephone [facility] 1.2.241.069 [id number] Univers 00:00:00 00:00:00 Catrinajuan [place] 350.1.13.10 ity of [place] 4.2.7.2.[place] [id number] Nj dical NAL 9 [facility] 2021-12-15 2021-12-15 Telephone [facility] 1.2.806.490 [id number] Univers 00:00:00 00:00:00 [place] 350.1.13.10 ity of [place] 4.2.7.2.686 [place] [id number] Nj dic[address] 2021-12-15 2021-12-15 Refill [facility] 1.2.840.114 [id number] Univers 00:00:00 00:00:00 [place] 350.1.13.10 ity of [place] 4.2.7.2.[place] [id number] [place] 919849 [facility] 2021-12-14 2021-12-14 Visual Aid Expert Farnaz, Adc Lab Main [facility] 1.2.8 40.114 [id number] Univers 12:30:00 12:45:00 Visit [place] Dan 350.1.13.10 ity of [place] 4.2.7.2.686 [place] [id number] [facility] 353 [facility] 2021-12-14 2021-12-14 Outpatient R [facility] [id number] Univers 12:30:00 12:30:00 [place] perez o f [facility] 2021-12-14 2021-12-14 Orders Doctor WILLS 1.2.840.114 [id number] Univers 00:00:00 00:00:00 Only Unassigned, MIKE 350.1.13.10 ity of [place] [facility] 4.2.7.2.686 Babak as [id number] [facility] [address] 2021-12-04 2021-12-04 Visual Aid Expert Farnaz, Adc Lab Main [facility] 1.2.8 40.114 [id number] Univers 14:15:00 14:30:00 Visit Sy [place] ARANDA 350.1.13.10 ity of [place] 4.2.7.2.[place] [id number] Nj dical NAL 353 [facility] 2021-12-04 2021-12-04 Outpatient R [facility] [id number] Univers 14:15:00 14:15:00 QIAJUAN ity o f [facility] 2021-12-04 2021-12-04 Outpatient R [facility] [id number] Univers 14:15:00 14:15:00 QIANGZAHEER ity o f [facility] 2021-12-04 2021-12-04 Transition ALESIA Gamez 1.2.840.114 [id number] Univers 00:00:00 00:00:00 of Thao SAMANIEGO 350.1.13.10 it y of [place] 4.2.7.2.[place] [id number] [facility] [address] 2021-12-04 2021-12-04 [facility] 1.2.480.080 [id number] Univers 00:00:00 00:00:00 [place] ARANDA 350.1.13.10 ity of [place] 4.2.7.2.[place] [id number] Nj dical NAL 059 [facility] 2021-11-23 2021-12-01 Inpatient R REBECA HOLCOMB [facility] 10 [id number] Univers 15:31:00 14:11:00 REBECA HOLCOMB ity of [facility] 2021-11-23 2021-12-01 [facility] SHAYAN Holcomb 1.2.358.371 [id number] Univers 15:31:00 14:11:00 Encounter Rebeca MCKEON 350.1.13.10 ity of [facility] 4.2.7.2.686 Babak as [id number] [facility] [address] 2021-12-01 2021-12-01 Telephone [facility] 1.2.771.472 [id number] Univers 00:00:00 00:00:00 [place] ROSI 350.1.13.10 i ty of [facility] 4.2.7.2.[place] [id number] Nj dical NAL 059 [facility] 2021-11-23 2021-11-23 Orders Doctor JOHANN 1.2.840.114 [id number] Univers 00:00:00 00:00:00 Only Unassigned, MIKE 350.1.13.10 ity of [place] [facility] 4.2.7.2.686 Babak as [id number] [address] 2021-11-22 2021-11-22 Visual Aid Expert Farnaz, Adc Lab Main [facility] 1.2.8 40.114 [id number] Univers 07:45:00 08:00:00 Visit [place] Dan 350.1.13.10 ity of [facility] 4.2.7.2.[place] [id number] Nj dical NAL 353 [facility] 2021-11-22 2021-11-22 Outpatient R SY, [facility] [id number] Univers 07:45:00 07:45:00 ROGERZAHEER tylery o [facility] 2021-11-22 2021-11-22 Outpatient R SY, [facility] [id number] Univers 07:45:00 07:45:00 [place] scotty o f [facility] 2021-11-20 2021-11-20 Telephone [facility] 1.2.809.902 [id number] Univers 00:00:00 00:00:00 [place] ARANDA 350.1.13.10 ity of [facility] 4.2.7.2.[place] [id number] Nj dical NAL 059 [facility] 2021-11-10 2021-11-10 Visual Aid Expert Farnaz, Adc Lab Main [facility] 1.2.8 40.114 [id number] Univers 16:45:00 17:00:00 Visit [place] Dan 350.1.13.10 ity of [facility] 4.2.7.2.[place] [id number] Nj dical [facility] [address] [facility] 2021-11-10 2021-11-10 Outpatient R SY, [facility] [id number] Univers 16:45:00 16:45:00 [place] perez o [facility] 2021-11-10 2021-11-10 Outpatient R SY, [facility] [id number] Univers 16:45:00 16:45:00 CATRINAJUAN scottjake o [facility] 2021-11-10 2021-11-10 [facility]phone [facility] 1.2.971.639 [id number] Univers 00:00:00 00:00:00 [place] ARANDA 350.1.13.10 ity of [place] 4.2.7.2.[place] [id number] [place] 919849 [facility] 2021-11-07 2021-11-07 Telephone [facility] 1.2.840.114 [id number] Univers 00:00:00 00:00:00 h, Tareq HEALTH 350.1.13.10 i ty of [place]2.7.2.[place] [phone] [place] [address] Branch OFFICE BUILDING 2021-11-06 2021-11-06 Visual Aid Expert Andre Osei Lab Main [facility] 1.2.8 40.114 [id number] Univers 13:15:00 13:30:00 Visit Sy [place] ARANDA 350.1.13.10 ity of [place] 4.2.7.2.[place] [id number] [facility] 353 [facility] 2021-11-06 2021-11-06 Outpatient R SY, [facility] [id number] Univers 13:15:00 13:15:00 ROGERZAHEER ana o [facility] 2021-11-06 2021-11-06 Outpatient R SY, [facility] [id number] Univers 13:15:00 13:15:00 ROGERZAHEER ana o [facility] 2021-11-06 2021-11-06 Telephone [facility] 1.2.147.615 [id number] Univers 00:00:00 00:00:00 Qiangjun [place] 350.1.13.10 ity of [place] 4.2.7.2.[place] [phone] Nj dical NAL 059 [facility] 2021-11-06 2021-11-06 Telephone [facility] 1.2.903.177 [id number] Univers 00:00:00 00:00:00 Wayne HEALTH 350.1.13.10 it y of [place].2.[place] [id number] [address] OFFICE BUILDING 2021-11-03 2021-11-03 Outpatient [facility] [id number] Univers 15:00:00 15:40:28 WAYNE ity [facility] 2021-11-03 2021-11-03 Outpatient [facility] [id number] Univers 15:00:00 15:40:28 WAYNE ity [facility] 2021-11-03 2021-11-03 [facility] [id number] Univers 15:00:00 15:20:00 [facility].1.13.10 [facility] [id number] [phone] [address] 2021-11-03 2021-11-03 Outpatient [facility] [id number] Univers 15:00:00 15:00:00 WAYNE ity [facility] 2021-11-03 2021-11-03 Visual Aid Expert Farnaz, Andre Lab Main [facility] 1.2.8 40.114 [id number] Univers 14:30:00 14:45:00 Visit [place] Dan [id number] it[place] [phone] [facility] 353 [facility] 2021-11-03 2021-11-03 Outpatient [facility] [id number] Univers 11:00:00 11:00:00 WAYNE ity [facility] 2021-11-03 2021-11-03 Outpatient R HIM[facility] [id number] Univers 11:00:00 11:00:00 WAYNE ity of [facility] 2021-11-03 2021-11-03 Outpatient R HIMA [facility] [id number] Univers 11:00:00 11:00:00 WAYNE ity of [facility] 2021-11-03 2021-11-03 [facility]phone [facility] [id number] Univers 00:00:00 00:00:00 [place] ARANDA [id number] ity [facility] 4[place] [phone] Nj dical NAL [address] [place] [address] 2021-10-25 2021-10-25 [facility]ill [facility] [id number] Univers 00:00:00 00:00:00 [place] [id number] it[place] [phone] Nj dical NAL 9 [facility] 2021-10-23 2021-10-23 Visual Aid Expert Farnaz, Adc Lab Main [facility] 1.2.8 40.114 [id number] Univers 10:15:00 10:30:00 Visit Sy [place] ARANDA 350.1.13.10 it[place] [phone] Nj dical [facility] 353 [facility] 2021-10-23 2021-10-23 Outpatient [facility] [id number] Univers 10:15:00 10:15:00 [place] perez o f [facility] 2021-10-23 2021-10-23 Outpatient R [facility] [id number] Univers 10:15:00 10:15:00 [place] scotty o f [facility] 2021-10-23 2021-10-23 Orders Doctor WILLS [id number] [id number] Univers 00:00:00 00:00:00 Only Unassigned, MIKE 350.1.13.10 ity of [place] [facility] 4.2.7.2.686 Babak as [phone] [address] 2021-10-23 2021-10-23 Refill [facility] 1.2.840.114 [id number] Univers 00:00:00 00:00:00 [place] 350.1.13.10 it[place] [phone] Nj dical NAL 059 [facility] 2021-10-23 2021-10-23 Telephone [facility] 1.2.440.612 [id number] 1983 [facility] 00:00:00 00:00:00 Qiangjun [place] 350.1.13.10 ity of [place] [id number] Nj dicia NAL [address] [place] [address] 2021-10-18 2021-10-18 Visual Aid Expert Farnaz, Adc Lab Main [facility] 1.2.8 40.114 [id number] Univers 09:30:00 09:45:00 Visit [place] 350.1.13.10 ity of [facility] 4.2.7.2.[place] [id number] Nj dicia NAL 353 [facility] 2021-10-18 2021-10-18 Outpatient R [facility] [id number] Univers 09:30:00 09:30:00 ROGERZAHEER ity o [facility] 2021-10-18 2021-10-18 Outpatient R [facility] [id number] Univers 09:30:00 09:30:00 QIAMERJUN ity o [facility] 2021-10-18 2021-10-18 Telephone [facility] 1.2.178.785 [id number] 1327 [facility] 00:00:00 00:00:00 Qiamerjun [place] 350.1.13.10 it[place] of [place] [id number] Nj dical NAL 059 [facility] 2021-10-13 2021-10-13 Visual Aid Expert Farnaz, Adc Lab Main [facility] 1.2.8 40.114 [id number] Univers 10:45:00 11:00:00 Visit [place] DanTON 350.1.13.10 ity of [place] [phone] Nj dical [address] 2021-10-13 2021-10-13 Outpatient R SY, [facility] [id number] Univers 10:45:00 10:45:00 QIANGJUN ity o f [facility] 2021-10-13 2021-10-13 Outpatient R SY, [facility] [id number] Univers 10:45:00 10:45:00 QIANGJUN ity o f [facility] 2021-10-13 2021-10-13 [facility]phone [facility] 1.2.076.936 [id number] Univers 00:00:00 00:00:00 Qiajuan [place] 350.1.13.10 it[place] of [place] [phone] [address] 2021-09-27 2021-09-27 Visual Aid Expert Farnaz, Adc Lab Main [facility] 1.2.8 40.114 [id number] Univers 10:15:00 10:30:00 Visit [place] Dan[place] 350.1.13.10 ity of [place] 4[place] [phone] [address] 2021-09-27 2021-09-27 Outpatient R SY, [facility] [id number] Univers 10:15:00 10:15:00 QIAMERJUN ity o f [facility] 2021-09-27 2021-09-27 Outpatient R SY, [facility] [id number] Univers 10:15:00 10:15:00 QIANGJUN ity o f [facility] 2021-09-27 2021-09-27 Telephone [facility] 1.2.947.335 [id number] Univers 00:00:00 00:00:00 Qiajuan [place] 350.1.13.10 it[place] of [place] 4.[place] [phone] Nj dicia NAL [address] [place] [address] 2021-09-27 2021-09-27 Telephone [facility] 1.2.613.381 [id number] Univers 00:00:00 00:00:00 [place] 350.1.13.10 ity of [place] 4.2.7.2.[place] [phone] Nj dical NAL [address] [place] [address] 2021-09-21 2021-09-21 [facility]ill [facility] 1.2.840.114 [id number] Univers 00:00:00 00:00:00 [place] ARANDA 350.1.13.10 ity of [place] 4.2.7.2.[place] [phone] Nj dical NAL [address] [place] [address] 2021-09-01 2021-09-01 [facility] 1.2.138.167 [id number] Univers 00:00:00 00:00:00 [place] ARANDA 350.1.13.10 it[place] of [place] 4.2.[place] [phone] Nj dickirk BURGESS [address] [place] [address] 2021-08-30 2021-08-30 Visual Aid Expert Farnaz, Adc Lab Main [facility] 1.2.8 40.114 [id number] Univers 09:00:00 09:15:00 Visit [place] Dan 350.1.13.10 ity of [place] 4.2.7.2.[place] [id number] Nj dickirk [facility] 353 [facility] 2021-08-30 2021-08-30 Outpatient R SY [facility] [id number] 964 [facility] 09:00:00 09:00:00 [place] perez o f [facility] 2021-08-30 2021-08-30 Outpatient R SY [facility] [id number] Univers 09:00:00 09:00:00 [place] perez o f [facility] 2021-08-30 2021-08-30 Orders Doctor WILLS 1.2.840.114 [id number] Univers 00:00:00 00:00:00 Only Unassigned, MIKE 350.1.13.10 ity of [place] [facility] 4.2.7.2.686 Babak as [phone] [address] 2021-08-30 2021-08-30 Telephone Sy, [facility] 1.2.299.265 [id number] Univers 00:00:00 00:00:00 [place] ARANDA 350.1.13.10 ity of [facility] 4.2.7.2.[place] [phone] [place] 919849 [facility] 2021-08-28 2021-08-28 Office Sy, [facility] 1.2.840.114 [id number] Univers 10:40:00 10:49:42 Visit [place] ARANDA 350.1.13.10 ity of [place] 4.2.7.2.[place] [phone] [place] 919849 [facility] 2021-08-28 2021-08-28 Outpatient R SY, [facility] [id number] Univers 10:40:00 10:49:42 [place] perez o [facility] 2021-08-28 2021-08-28 Outpatient R SY, [facility] [id number] Univers 10:40:00 10:40:00 [place] perez [facility] 2021-08-28 2021-08-28 Outpatient R SY, [facility] [id number] Univers 10:40:00 10:40:00 [place] perez o [facility] 2021-08-16 2021-08-16 Visual Aid Expert Farnaz, Adc Lab Main [facility] 1.2.8 40.114 [id number] Univers 12:15:00 12:30:00 Visit [place] Dan 350.1.13.10 ity of [facility] 4.2.7.2.[place] [phone] [facility] 353 [facility] 2021-08-16 2021-08-16 Outpatient R SY, [facility] [id number] Univers 12:15:00 12:15:00 [place] scotty o [facility] 2021-08-16 2021-08-16 Outpatient R SY, [facility] [id number] Univers 12:15:00 12:15:00 QIANGJUN ity o f [facility] 2021-08-16 2021-08-16 Orders Doctor JOHANN 1.2.840.114 [id number] Univers 00:00:00 00:00:00 Only Unassigned, MIKE 350.1.13.10 ity of [place] [facility] 4.2.7.2.686 Babak as [phone] [address] 2021-08-16 2021-08-16 Telephone [facility] 1.2.994.748 [id number] Univers 00:00:00 00:00:00 Catrinamerzaheer [place] 350.1.13.10 ity of [place] 4[place] [phone] Nj dical NAL 059 [facility] 2021-08-02 2021-08-02 Visual Aid Expert Farnaz, Adc Lab Main [facility] 1.2.8 40.114 [id number] Univers 09:00:00 09:15:00 Visit Sy [place] ARANDA 350.1.13.10 ity of [place] 4.2.7.[place] [id number] Nj dical NAL 353 [facility] 2021-08-02 2021-08-02 Outpatient R [facility] [id number] Univers 09:00:00 09:00:00 [place] ity o f [facility] 2021-08-02 2021-08-02 Outpatient R [facility], [facility] [id number] Univers 09:00:00 09:00:00 QIANGJUN ity o f [facility] 2021-08-02 2021-08-02 Orders Doctor JOHANN 1.2.840.114 [id number] Univers 00:00:00 00:00:00 Only Unassigned, MIKE 350.1.13.10 ity of [place] [facility] 4.2.7.2.686 Babak as [phone] [address] 2021-08-02 2021-08-02 Telephone [facility] 1.2.385.424 [id number] Univers 00:00:00 00:00:00 [place] 350.1.13.10 ity of [place] [phone] Nj dical NAL 059 [facility] 2021-07-10 2021-07-10 [facility] 1.2.840.114 [id number] Univers 00:00:00 00:00:00 [place] 350.1.13.10 ity of [place] 4[place] [phone] Nj dical NAL [address] [place] [address] 2021-07-05 2021-07-05 Visual Aid Expert Farnaz, Adc Lab Main [facility] 1.2.8 40.114 [id number] Univers 09:30:00 09:45:00 Visit [place] Dan 350.1.13.10 ity of [facility] 4.2.7.2.[place] [phone] [address] 2021-07-05 2021-07-05 Outpatient R [facility] [id number] Univers 09:30:00 09:30:00 ROGERZAHEER ity o f [facility] 2021-07-05 2021-07-05 Outpatient R [facility] [id number] Univers 09:30:00 09:30:00 [place] ity o f [facility] 2021-07-05 2021-07-05 Telephone [facility] 1.2.861.759 [id number] 9363 [facility] 00:00:00 00:00:00 [place] ARANDA 350.1.13.10 ity of [place] [phone] Nj dical NAL [address] [place] [address] 2021-06-15 2021-06-15 Visual Aid Expert Farnaz, Adc Lab Main [facility] 1.2.8 40.114 [id number] Univers 09:45:00 10:00:00 Visit Sy [place] ARANDA 350.1.13.10 ity of [place] 4.2.[place].2.[place] [phone] Nj dical NAL [address] [place] [address] 2021-06-15 2021-06-15 [facility] [id number] Univers 09:45:00 09:23:22 JAAMICA scotty o f [facility] 2021-06-15 2021-06-15 Out[facility] [id number] Univers 09:45:00 09:23:22 [place] scotty o f [facility] 2021-06-15 2021-06-15 Orders Doctor JOHANN 1.2.840.114 [id number] Univers 00:00:00 00:00:00 Only Unassigned, MIKE 350.1.13.10 ity of [place] [facility] 4.2.7.2.686 Babak as [phone] [facility] [address] 2021-06-15 2021-06-15 Telephone SyY[facility] 1.2.155.635 [id number] Univers 00:00:00 00:00:00 [place] PEDIATRIC 350.1.13.10 [place] [id number] [facility] PRIMARY [address] [facility] 2021-05-31 2021-05-31 Visual Aid Expert Farnaz, Adc Lab Main [facility] 1.2.8 40.114 [id number] Univers 10:45:00 11:00:00 Visit [place] Dan 350.1.13.10 ity of [place] 4[place]2.7.2.[place] [phone] Nj dical NAL 353 [facility] 2021-05-31 2021-05-31 Office [facility] 1.2.840.114 [id number] Univers 10:00:00 10:33:12 Visit [place] ARANDA 350.1.13.10 ity of [place] 4[place].2.[place] [phone] Nj dical NAL 059 [facility] 2021-05-31 2021-05-31 Outpatient R SY [facility] [id number] Univers 10:00:00 10:33:12 ROGERZAHEER tylery o f [facility] 2021-05-31 2021-05-31 Outpatient R SY [facility] [id number] Univers 10:00:00 10:00:00 ROGERZAHEER jimenes [facility] 2021-05-31 2021-05-31 Telephone Sy, [facility] 1.2.019.746 [id number] Univers 00:00:00 00:00:00 [place] ARANDA 350.1.13.10 ity [facility] [place]2.7.2.[place] [id number] Nj dical NAL [address] [facility] 2021-05-26 2021-05-26 Emergency X JAKE, K [facility] ERT [id number] Univers 17:30:00 20:34:00 ity of [facility] 2021-05-26 2021-05-26 Emergency Jake, Ricky [facility] 1.2.840.114 [id number] Univers 17:30:00 20:34:00 Myah ARANDA 350.1.13.10 i ty [facility] [place]7.2.[place] [id number] [facility] [address] 2021-05-26 2021-05-26 Outpatient R SY, [facility] [id number] Univers 10:20:00 10:20:00 [place] perez [facility] 2021-05-26 2021-05-26 Outpatient R SY, [facility] [id number] Univers 10:20:00 10:20:00 [place] perez [facility] 2021-05-10 2021-05-10 Visual Aid Expert Farnaz, Adc Lab Main [facility] 1.2.8 40.114 [id number] Univers 08:15:00 08:30:00 Visit Sy [place] ARANDA 350.1.13.10 ity [facility] 4[place]2.7.2.[place] [phone] Nj dical NAL 353 [facility] 2021-05-10 2021-05-10 Outpatient R SY, [facility] [id number] Univers 08:15:00 08:15:00 [place] perez [facility] 2021-05-10 2021-05-10 Outpatient R SY, [facility] [id number] Univers 08:15:00 08:15:00 [place] perez [facility] 2021-05-10 2021-05-10 Telephone Sy, [facility] 1.2.085.706 [id number] Univers 00:00:00 00:00:00 Qiajuan [place] 350.1.13.10 ity of [facility] 4.2.7.2.[place] [phone] [address] 2021-05-10 2021-05-10 Telephone [facility] 1.2.753.469 [id number] Univers 00:00:00 00:00:00 Qiamerjun [place] 350.1.13.10 ity of [facility] 4.2.7.2.[place] [id number] [address] 2021-05-09 2021-05-09 Refill [facility] 1.2.840.114 [id number] Univers 00:00:00 00:00:00 Qiajuan [place] 350.1.13.10 ity of [facility] 4.2.7.2.[place] [phone] [address] 2021-05-04 2021-05-04 [facility] 1.2.840.114 [id number] Univers 00:00:00 00:00:00 Qiajuan [place] 350.1.13.10 ity of [facility] 4.2.7.2.[place] [phone] [address] 2021-04-28 2021-04-28 Outpatient R HIMA [facility] [id number] Univers 08:40:00 09:19:00 WAYNE ity of [facility] 2021-04-28 2021-04-28 Office [facility] 1.2.840.114 [id number] Univers 08:40:00 09:19:00 Visit Wayne ROSI 350.1.13.10 i ty of [facility] 4.2.7.2.[place] [phone] [address] 2021-04-28 2021-04-28 Outpatient R [facility] [id number] Univers 08:40:00 09:19:00 WAYNE ity [facility] 2021-04-28 2021-04-28 Visual Aid Expert Farnaz, Adc Lab Main [facility] 1.2.8 40.114 [id number] Univers 08:00:00 08:15:00 Visit [place] Dan 350.1.13.10 ity of [facility] 4.2.7.2.[place] [phone] Nj dic[address] 2021-04-27 2021-04-27 Visual Aid Expert Farnaz, Adc Lab Main [facility] 1.2.8 40.114 [id number] Univers 10:45:00 11:00:00 Visit [place] Dan 350.1.13.10 ity of [facility] 4.2.7.2.[place] [id number] [address] 2021-04-27 2021-04-27 Outpatient R [facility] [id number] Univers 10:45:00 10:45:00 ROGERZAHEER tylery o f [facility] 2021-04-27 2021-04-27 Outpatient R SY, [facility] [id number] Univers 10:45:00 10:45:00 [place] perez o f [facility] 2021-04-27 2021-04-27 Telephone YANY Dan 1.2.039.495 [id number] Univers 00:00:00 00:00:00 [place] PEDIATRIC 350.1.13.10 [place] [id number] [place] 9520[address] [facility] 2021-04-25 2021-04-25 Outpatient R HIMA [facility] [id number] Univers 10:20:00 10:20:00 WAYNE ity [facility] 2021-04-25 2021-04-25 Outpatient R HIMA [facility] [id number] Univers 10:20:00 10:20:00 WAYNE ity [facility] 2021-04-12 2021-04-12 Visual Aid Expert Farnaz, Adc Lab Main [facility] 1.2.8 40.114 [id number] Univers 09:30:00 09:45:00 Visit [place] Dan 350.1.13.10 ity of [place] 4.2.7.2.[place] [phone] Nj dical NAL 353 [facility] 2021-04-12 2021-04-12 Outpatient R [facility] [id number] Univers 09:30:00 09:30:00 [place] perez o f [facility] 2021-04-12 2021-04-12 Outpatient R [facility] [id number] Univers 09:30:00 09:30:00 [place] scotty o f [facility] 2021-04-12 2021-04-12 Orders Doctor JOHANN 1.2.840.114 [id number] Univers 00:00:00 00:00:00 Only Unassigned, MIKE 350.1.13.10 ity of [place] [facility] 4.2.7.2.686 Babak as [id number] [address] 2021-04-12 2021-04-12 Telephone [facility] 1.2.152.946 [id number] Univers 00:00:00 00:00:00 [place] ARANDA 350.1.13.10 ity of [place] 4.2.7.2.[place] [id number] Nj dical NAL 059 [facility] 2021-03-29 2021-03-29 Outpatient R [facility] [id number] Univers 11:20:00 11:20:58 [place] perez o abigail [facility] 2021-03-29 2021-03-29 Office [facility] 1.2.840.114 [id number] Univers 11:20:00 11:20:58 Visit [place] ARANDA 350.1.13.10 ity of [place] 4.2.7.2.[place] [phone] Nj dical NAL 059 [facility] 2021-03-28 2021-03-28 Visual Aid Expert Farnaz, Adc Lab Main [facility] 1.2.8 40.114 [id number] Univers 12:13:20 12:28:20 Visit [place] Dan 350.1.13.10 ity of [place] 4.2.7.2.[place] [id number] Nj dical NAL 353 [facility] 2021-03-28 2021-03-28 Outpatient R SY, [facility] [id number] Univers 12:15:00 12:15:00 [place] ity o [facility] 2021-03-28 2021-03-28 Outpatient R [facility] [id number] Univers 12:15:00 12:15:00 [place] scotty o [facility] 2021-03-28 2021-03-28 Orders Doctor JOHANN 1.2.840.114 [id number] Univers 00:00:00 00:00:00 Only Unassigned, MIKE 350.1.13.10 [place] [facility] [place] 4.2.7.2.686 Babak as [phone] [address] 2021-03-28 2021-03-28 [facility]phone [facility] 1.2.504.989 [id number] Univers 00:00:00 00:00:00 [place] ARANDA 350.1.13.10 ity of [place].7.2.[place] [id number] Nj dical NAL 059 [facility] 2021-03-28 2021-03-28 [facility] 1.2.840.114 [id number] Univers 00:00:00 00:00:00 [place] ARANDA 350.1.13.10 ity of [place] 4[place].7.2.[place] [phone] Nj dical NAL 059 [facility] 2021-03-20 2021-03-20 Outpatient R SY, [facility] [id number] Univers 13:45:00 13:45:00 [place] ity o [facility] 2021-03-20 2021-03-20 Outpatient R SY, [facility] [id number] Univers 13:45:00 13:45:00 [place] ity o [facility] 2021-03-20 2021-03-20 Visual Aid Expert Farnaz, Andre Lab Main [facility] 1.2.8 40.114 [id number] Univers 11:58:29 12:13:29 Visit Catrina Danjuan ARANDA 350.1.13.10 ity [facility] 4.2.7.2.[place] [phone] Nj dical NAL 353 [facility] 2021-03-20 2021-03-20 Telephone [facility] 1.2.080.043 [id number] Univers 00:00:00 00:00:00 Rogerzaheer ROSI 350.1.13.10 ity of [facility] 4.2.7.2.[place] [id number] Nj dical NAL 059 [facility] 2021-03-15 2021-03-15 Outpatient Joan VILLA [facility] [id number] Univers 09:15:00 09:15:00 JOSE [facility] 2021-03-15 2021-03-15 Outpatient Joan VILLA [facility] [id number] Univers 09:15:00 [facility]:15[facility]-15 2021-03-15 Visual Aid Expert Farnaz, Andre Lab Main [facility] 1.2.8 40.114 [id number] Univers 08:14:37 08:29:37 Visit Jl Villaya Luly ARANDA 350.1.13. 10 ity [facility] 4.2.7.2.[place] [id number] Nj dical NAL 353 [facility] 2021-03-15 2021-03-15 Orders Doctor JOHANN 1.2.840.114 [id number] Univers 00:00:00 00:00:00 Only Unassigned, MIKE 350.1.13.10 ity of [place] [facility] 4.2.7.2.686 Babak as [id number] [address] 2021-03-15 2021-03-15 Telephone [facility] 1.2.452.208 [id number] Univers 00:00:00 00:00:00 [place] GRAYSONJAVIER 350.1.13.10 ity of [facility] 4.2.7.2.[place] [phone] Nj dical NAL 059 [facility] 2021-03-07 2021-03-07 Transition Gamez, SHEARN 1.2.840.114 [id number] Univers 00:00:00 00:00:00 of Thao Georgie MARIAY 350.1.13.10 it y of [place]2.[place].2.[place] [id number] [facility] [address] 2021-03-01 2021-03-06 Inpatient X FABIOLA [facility] BERENICE [id number] Univers 11:31:00 15:17:00 CALEB ana [facility] 2021-03-01 2021-03-06 [facility] Jamie Deng [facility] 1.2.840.1 14 [id number] Univers 11:31:00 15:17:00 Encounter Caleb Rodrigues 350.1.13.10 ity of [place]2.7.2.[place] [phone] [facility] [address] 2021-03-01 2021-03-01 [facility] [id number] Univers 11:31:00 11:31:00 CALEBEL perez [facility] 2021-02-27 2021-02-27 Outpatient R SY, [facility] [id number] Univers 11:20:00 11:44:55 [place] tylerjake o [facility] 2021-02-27 2021-02-27 Outpatient R SY, [facility] [id number] Univers 11:20:00 11:44:55 CATRINAJUAN ana o [facility] 2021-02-27 2021-02-27 Outpatient R SY, [facility] [id number] Univers 11:20:00 11:44:55 CATRINAJUAN ana o [facility] 2021-02-27 2021-02-27 Outpatient R SY, [facility] [id number] Univers 11:20:00 11:44:55 CATRINAJUAN ana o [facility] 2021-02-27 2021-02-27 Office Sy, [facility] 1.2.840.114 [id number] Univers 10:54:32 11:44:55 Visit [place] ARANDA 350.1.13.10 ity of [place] 4.2.7.2.[place] [id number] Nj dical NAL 059 [facility] 2021-02-27 2021-02-27 Outpatient R SY, [facility] [id number] Univers 10:30:00 10:30:00 QIAMERJUN ity o f [facility] 2021-02-27 2021-02-27 Outpatient R SY, [facility] [id number] Univers 10:30:00 10:30:00 QIANGJUN ity o [facility] 2021-02-27 2021-02-27 Visual Aid Expert Farnaz, Adc Lab Main [facility] 1.2.8 40.114 [id number] Univers 09:52:58 10:07:58 Visit Sy [place] ARANDA 350.1.13.10 it[place] [id number] [place] dical NAL 353 [facility] 2021-02-27 2021-02-27 Orders Doctor JOHANN 1.2.840.114 [id number] Univers 00:00:00 00:00:00 Only Unassigned, MIKE 350.1.13.10 ity of [place] [facility] 4.2.7.2.686 [place]ak as [id number] [address] 2021-02-27 2021-02-27 Telephone yS, [facility] 1.2.290.093 [id number] Univers 00:00:00 00:00:00 [place] ARANDA 350.1.13.10 [place] [id number] N[place] dical NAL 059 [facility] 2021-02-24 2021-02-24 Outpatient R SY, [facility] [id number] Univers 10:45:00 10:45:00 QIANGJUN ity o [facility] 2021-02-24 2021-02-24 Outpatient R SY, [facility] [id number] Univers 10:45:00 10:45:00 QIANGJUN ity o [facility] 2021-02-24 2021-02-24 Visual Aid Expert Farnaz, Adc Lab Main [facility] 1.2.8 40.114 [id number] Univers 09:17:46 09:32:46 Visit [place] Dan 350.1.13.10 ity of [place] [phone] Nj dickirk B[place] 353 [facility] 2021-02-24 2021-02-24 Telephone [facility] 1.2.125.641 [id number] Univers 00:00:00 00:00:00 [place] ARANDA 350.1.13.10 it[place] [phone] Nj dickirk NAL 059 [facility] 2021-02-24 2021-02-24 Telephone [facility] [id number] [facility] 00:00:00 00:00:00 [place] ARANDA 350.1.13.10 ity [place] [id number] N[place] dickirk [place] 9 [facility] 2021-02-24 2021-02-24 Telephone [facility] 1.2.120.272 [id number] Univers 00:00:00 00:00:00 [place] ARANDA 350.1.13.10 it[place] [phone] Nj dickirk [place] 9 [facility] 2021-02-15 2021-02-15 Visual Aid Expert Farnaz, Adc Lab Main [facility] 1.2.8 40.114 [id number] Univers 09:47:39 10:02:39 Visit [place] Dan 350.1.13.10 it[place] [phone] N[place] dickirk [place] 353 [facility] 2021-02-15 2021-02-15 Outpatient R SY [facility] [id number] Univers 09:45:00 09:45:00 [place] perez o [facility] 2021-02-15 2021-02-15 Outpatient R SY [facility] [id number] Univers 09:45:00 09:45:00 [place] perez o [facility] 2021-02-15 2021-02-15 Orders Doctor JOHANN 1.2.840.114 [id number] Univers 00:00:00 00:00:00 Only Unassigned, MIKE 350.1.13.10 ity of [place] [facility] 4.2.7.2.686 Babak as [phone] [facility] [address] 2021-02-15 2021-02-15 Telephone Sy [facility] 1.2.630.207 [id number] Univers 00:00:00 00:00:00 [place] ARANDA 350.1.13.10 [facility] [place] [phone] N[place] dical NAL 059 Branch [facility] 2021-02-10 2021-02-10 Transition ALESIA Gamez 1.2.840.114 [id number] Univers 00:00:00 00:00:00 of Care Georgie SAMANIEGO 350.1.13.10 it y of [place] [phone] [facility] [address] 2021-02-04 2021-02-09 Inpatient X MIGUEL [facility] BERENICE [id number] Univers 20:57:00 13:26:00 JENNIFER ity of [facility] 2021-02-04 2021-02-09 [facility] Jamie Deng [facility] 1.2.840.1 14 [id number] Univers 20:57:00 13:26:00 Encounter Wilber Flowers 350.1.13.10 ity of [place] 4.2.7.2.686 [facility] [phone] [facility] [address] 2021-01-02 2021-01-02 Visual Aid Expert Farnaz, Andre Lab Main [facility] 1.2.8 40.114 [id number] Univers 11:35:12 11:50:12 Visit [place] Dan 350.1.13.10 ity of [place] [phone] N[place] dical nal 353 [facility] 2021-01-02 2021-01-02 Outpatient R SY [facility] [id number] Univers 11:45:00 11:45:00 [place] scotty o f [facility] 2021-01-02 2021-01-02 Outpatient R SY [facility] [id number] Univers 11:45:00 11:45:00 [place] scotty o f [facility] 2021-01-02 2021-01-02 Orders Doctor JOHANN 1.2.840.114 [id number] Univers 00:00:00 00:00:00 Only Unassigned, MIKE 350.1.13.10 ity of [facility] 4.2.7.2.686 Babak as [phone] [address] 2021-01-02 2021-01-02 [facility] 1.2.814.468 [id number] Univers 00:00:00 00:00:00 [place] Aranda 350.1.13.[address] [place]2.7.2.[place] [phone] Nj dical nal 059 [facility] 2021-01-02 2021-01-02 [facility] 1.2.840.114 [id number] Univers 00:00:00 00:00:00 [place] Aranda 350.1.13.[address] [place] [phone] Nj dical nal 059 [facility] 2020-12-07 2020-12-07 Visual Aid Expert Farnaz, Adc Lab Main [facility] 1.2.8 40.114 [id number] Univers 08:05:37 08:20:37 Visit Sy [place] Aranda 350.1.13.[address] [place].2.[place] [phone] Nj dical nal 353 [facility] 2020-12-07 2020-12-07 Outpatient R SY [facility] [id number] Univers 08:00:00 08:00:00 CATRINAJUAN ana o abigail [facility] 2020-12-07 2020-12-07 Outpatient R SY [facility] [id number] Univers 08:00:00 08:00:00 [place] perez jalil [facility] 2020-12-07 2020-12-07 Telephone Sy, [facility] 1.2.334.019 [id number] Univers 00:00:00 00:00:00 [place] Aranda 350.1.13.10 [place] 4.2.7.2.686 Jose Elias Fleming [phone] [place] [id number] [facility] 2020-11-23 2020-11-23 Outpatient R SY, [facility] [id number] Univers 13:37:45 23:59:00 [place] jimenes [facility] 2020-11-23 2020-11-23 Outpatient R SY, [facility] [id number] Univers 13:37:45 23:59:00 [place] jimenes [facility] 2020-11-14 2020-11-14 Outpatient R SY, [facility] [id number] Univers 13:40:00 13:40:00 [place] perez [facility] 2020-10-12 2020-10-12 Outpatient R SY, [facility] [id number] Univers 08:00:00 08:00:00 [place] jimenes [facility] 2020-09-27 2020-09-27 Outpatient R SY, [facility] [id number] Univers 13:00:00 13:00:00 [place] jimenes [facility] 2020-09-22 2020-09-22 Outpatient R SY, [facility] [id number] Univers 09:30:00 09:30:00 [place] jimenes [facility] 2020-09-07 2020-09-07 Outpatient R SY, [facility] [id number] Univers 08:45:00 08:45:00 [place] jimenes [facility] 2020-08-19 2020-08-19 Outpatient R SY, [facility] [id number] Univers 08:45:00 08:45:00 [place] jimenes [facility] 2020-08-15 2020-08-15 Outpatient R SY, [facility] [id number] Univers 10:45:00 10:45:00 [place] perez [facility] 2020-08-08 2020-08-08 Outpatient R [facility] [id number] Univers 11:45:00 11:45:00 [place] hayes [facility] 2020-08-08 2020-08-08 Visual Aid Expert Farnaz [facility] 1.2.840.114 [id number] 11:14:44 11:29:44 Visit Lab Main [place] 350.1.13.[address] 4.2.7.2.686 Professio [phone] nal 353 [facility] 2020-08-08 2020-08-08 Orders Doctor JOHANN 1.2.840.114 [id number] 00:00:00 00:00:00 Only Unassigned, MIKE 350.1.13.10 [place] [facility] 4.2.7.2.686 [id number] 009 2020-08-08 2020-08-08 Telephone [facility] 1.2.031.762 [id number] 00:00:00 00:00:00 [place] [address].13.[address] 4.2.7.2.686 Professio [phone] [facility] 059 [facility] 2020-07-25 2020-07-25 Telephone [facility] 1.2.937.472 [id number] 00:00:00 00:00:00 [place] [address] 4.2.7.2.686 Professio [phone] [facility] 059 [facility] 2020-07-20 2020-07-20 [facility] [id number] Univers 11:45:00 11:45:00 [place] hayes [facility] 2020-07-20 2020-07-20 Visual Aid Expert Farnaz [facility] 1.2.840.114 [id number] 10:37:03 10:52:03 Visit Lab Main [place] 350.1.13.[address] 4.2.7.2.686 Professio [phone] [facility] 353 [facility] 2020-07-20 2020-07-20 Orders Doctor JOHANN 1.2.840.114 [id number] 00:00:00 00:00:00 Only Unassigned, MIKE 350.1.13.10 [place] [facility] 4.2.7.2.686 [id number] 009 2020-07-20 2020-07-20 Telephone [facility] 1.2.231.004 [id number] 00:00:00 00:00:00 [place] [address] 4.2.7.2.686 Professio [phone] [address] 2020-07-13 2020-07-13 Outpatient R [facility] [id number] Univers 10:15:00 10:15:00 [place] perez o [facility] 2020-07-13 2020-07-13 Visual Aid Expert Farnaz, [facility] 1.2.840.114 [id number] 09:23:20 09:38:20 Visit Lab Main [place] 350.1.13.[address] 4.2.7.2.686 Professio [phone] [address] 2020-07-13 2020-07-13 Telephone [facility] 1.2.421.049 [id number] 00:00:00 00:00:00 [place] [address] 4.2.7.2.686 Professio [phone] [address] 2020-06-19 2020-06-19 Telephone [facility] 1.2.133.240 [id number] 00:00:00 00:00:00 Rogerzaheer [place] [address] 4.2.7.2.686 Professio [phone] [address] 2020-06-17 2020-06-17 Visual Aid Expert Farnaz [facility] 1.2.840.114 [id number] 09:22:55 09:37:55 Visit Lab Main [place] 350.1.13.[address] 4.2.7.2.686 Professio [phone] [address] 2020-06-17 2020-06-17 Outpatient R [facility] [id number] Univers 09:30:00 09:30:00 [place] ity o [facility] 2020-06-08 2020-06-08 Telephone [facility] [id number] [id number] 00:00:00 00:00:00 Catrinamerzaheer Ar[place] [address] 4.2.7.2.686 Professio [phone] nal 059 [facility] 2020-06-07 2020-06-07 Visual Aid Expert Farnaz [facility] 1.2.840.114 [id number] 08:57:47 09:12:47 Visit Lab Main Rosi 350.1.13.[address] 4.2.7.2.686 Professio [phone] [facility] 353 [facility] 2020-06-07 2020-06-07 [facility] R [facility] [id number] Univers 09:00:00 09:00:00 [place] jimenes [facility] 2020-05-23 2020-05-23 Outpatient R [facility] [id number] Univers 09:15:00 09:15:00 [place] jimenes [facility] 2020-05-16 2020-05-16 Outpatient R [facility] [id number] Univers 11:30:00 11:30:00 [place] jimenes [facility] 2020-05-16 2020-05-16 [facility] 1..840.114 [id number] 11:09:17 11:24:17 Visit Lab Main Rosi 350.1.13.[address] 4.2.7.2.686 Professio [phone] [facility] 353 [facility] 2020-05-16 2020-05-16 Orders Doctor JOHANN 1.2.840.114 [id number] 00:00:00 00:00:00 Only Unassigned, MIKE 350.1.13.10 [place] [facility] 4.2.7.2.686 [id number] 009 2020-05-16 2020-05-16 Telephone [facility] 1.2.042.623 [id number] 00:00:00 00:00:00 Catrinamerzaheer Aranda [address] 4.2.7.2.686 Professio [phone] nal 059 [facility] 2020-05-11 2020-05-11 Visual Aid Expert Andre Osei [facility] 1.2.840.114 [id number] 09:25:07 09:40:07 Visit Lab Main [place] [address].13.[address] 4.2.7.2.686 Professio [phone] 2020-05-11 2020-05-11 Outpatient R [facility] [id number] Univers 09:30:00 09:30:00 SENDIL ity [facility] 2020-05-11 2020-05-11 Telephone [facility] 1.2.086.393 [id number] 00:00:00 00:00:00 [place] [address] 4.2.7.2.686 Professio [phone] [address] 2020-05-11 2020-05-11 Telephone [facility] 1.2.453.889 [id number] 00:00:00 00:00:00 Qiamerjun [place] [address] 4.2.7.2.686 Professio [phone] [address] 2020-05-04 2020-05-04 [facility] 1.2.994.748 [id number] 00:00:00 00:00:00 Qiamerjun [place] [address] 4.2.7.2.686 Professio [phone] [address] 2020-05-03 2020-05-03 Outpatient R [facility] [id number] Univers 11:30:00 11:30:00 [place] perez o [facility] 2020-05-03 2020-05-03 Visual Aid Expert Farnaz [facility] 1.2.840.114 [id number] 10:05:00 10:20:00 Visit Lab Main [place] [address].13.[address] 4.2.7.2.686 Professio [phone] [address] 2020-05-03 2020-05-03 Orders Doctor WILLS 1.2.840.114 [id number] 00:00:00 00:00:00 Only Unassigned, MIKE 350.1.13.10 [place] [facility] 4.2.7.2.686 [id number] 009 2020-04-27 2020-04-27 Visual Aid Expert Andre Osei [facility] 1.2.840.114 [id number] 08:24:03 08:39:03 Visit Lab Main Rosi 350.1.13.[address] 4.2.7.2.686 Professio [phone] [facility] 353 [facility] 2020-04-27 2020-04-27 Outpatient R [facility] [id number] Univers 08:30:00 08:30:00 [place] hayes [facility] 2020-04-27 2020-04-27 Telephone [facility] 1.2.684.770 [id number] 00:00:00 00:00:00 [place] 350.1.13.10 [place] 4.2.7.2.686 Professio [phone] [address] 2020-04-20 2020-04-20 Refill [facility] 1.2.840.114 [id number] 00:00:00 00:00:00 [place] Aranda 350.1.13.10 [place] 4.2.7.2.686 Professio [phone] [address] 2020-04-01 2020-04-01 Outpatient R [facility] [id number] Univers 10:15:00 10:15:00 NICK perez [facility] 2020-03-29 2020-03-29 Office [facility] 1.2.840.114 [id number] 14:32:40 15:25:41 Visit [place] 350.1.13.10 [place] 4.2.7.2.686 Professio [phone] [address] 2020-03-29 2020-03-29 Outpatient R [facility] [id number] Univers 14:40:00 14:40:00 [place] hayes [facility] 2020-03-22 2020-03-22 Outpatient R [facility] [id number] Univers 15:30:00 15:30:00 QIANGJUN ity o f [facility] 2020-03-15 2020-03-15 Outpatient R SY, [facility] [id number] Univers 11:15:00 11:15:00 QIANGJUN ity o f [facility] 2020-02-24 2020-02-24 Outpatient R SY, [facility] [id number] Univers 08:40:00 08:40:00 QIANGJUN ity o f [facility] 2020-02-17 2020-02-17 Outpatient R SY, [facility] [id number] Univers 09:15:00 09:15:00 QIANGJUN ity o f [facility] 2020-01-11 2020-01-11 Outpatient R SY, [facility] [id number] Univers 12:45:00 12:45:00 QIANGJUN ity o f [facility] 2019-12-17 2019-12-17 Outpatient R SY, [facility] [id number] Univers 11:00:00 11:00:00 QIANGJUN ity o f [facility] 2019-11-26 2019-11-26 Outpatient R SY, [facility] [id number] Univers 12:45:00 12:45:00 QIANGJUN ity o [facility] 2019-10-30 2019-10-30 Outpatient R RADIOLOGY [facility] [id number] Univers 00:00:00 00:00:00 ity [facility] 2019-10-20 2019-10-20 Outpatient R MCDERMOTT, ALICJA [facility] [id number] Univers 09:30:00 09:30:00 ity [facility] 2019-09-30 2019-09-30 Outpatient R SY, [facility] [id number] Univers 08:30:00 08:30:00 QIANGJUN ity o f [facility] 2019-09-08 2019-09-08 Outpatient R SY, [facility] [id number] Univers 15:20:00 15:20:00 QIANGJUN ity o f [facility] 2019-09-03 2019-09-03 Outpatient R SY, [facility] [id number] Univers 09:00:00 09:00:00 QIANGJUN ity o f [facility] 2019-07-24 2019-07-24 Outpatient Joan DAN [facility] [id number] Univers 11:45:00 11:45:00 [place] perez o abigail [facility] 2019-06-22 2019-06-22 Outpatient Joan DAN [facility] [id number] Univers 13:30:00 13:30:00 [place] hayes [facility] Results Test Description Test Time Test Comments Results Result Comments Source PROTHROMBIN TIME / INR 2022-07-10 15:08:40 Test Item Value Reference Range Interpretation Comme nts PROTIME PATIENT (test code = 24.8 See_Comment H [Automated message] The system 5964-2) which generated this result transmitted ref erence range: 12.0 - 14.7 Sec onds. The reference range was not used to interpret this result as normal/abnormal . INR (test code = 6301-6) 2.3 Nor mal INR <1.1; Warfarin Therapeutic ran ge 2.0 to 3.0 or 2.5 to 3.5, dep ending upon the indications. Lab Interpretation (test code Abnormal = 22395-7) [facility] / [id number] 15:08:40 Test Item Value Reference Range Interpretation Comments PROTIME PATIENT (test 24.8 See_Comment H [Auto mated message] code = 5964-2) The system Archy generated this result transmitted ref erence range: 12.0 - 1 4.7 Seconds. The reference range was not used to int erpret this result as normal/abnormal . INR (test code = 6301-6) 2.3 Nor mal INR <1.1; Warfarin Therap eutic range 2.0 to 3. 0 or 2.5 to 3.5, dep ending upon the indica tions. Lab Interpretation (test Abnormal code = 41640-4) [facility]PROT[facility] / [id number] 15:08:40 Test Item Value Reference Range Interpretation Comments PROTIME PATIENT (test 24.8 See_Comment H [Auto mated message] code = 5964-2) The system Archy generated this result transmitted ref erence range: 12.0 - 1 4.7 Seconds. The reference range was not used to int erpret this result as normal/abnormal . INR (test code = 6301-6) 2.3 Nor mal INR <1.1; Warfarin Therap eutic range 2.0 to 3. 0 or 2.5 to 3.5, dep ending upon the indica tions. Lab Interpretation (test Abnormal code = 92786-6) [facility] CampusPROTHROM[facility] TIME / [id number] 18:32:10 Test Item Value Reference Range Interpretation Comments PROTIME PATIENT (test 24.4 See_Comment H [Auto mated message] code = 5964-2) The system [employer] generated this result transmitted ref erence range: 12.0 - 1 4.7 Seconds. The reference range was not used to int erpret this result as normal/abnormal . INR (test code = 6301-6) 2.2 Nor mal INR <1.1; Warfarin Therap eutic range 2.0 to 3. 0 or 2.5 to 3.5, dep ending upon the indica tions. Lab Interpretation (test Abnormal code = 17225-8) [facility]Trans[facility] (MARGA)2022-06-11 22:45:29 Test Item Value Reference Range Interpretation Comments Height (test code = 63 in 3376953734) Weight (test code = 102 lbs 0466815191) Systolic BP (test 123 mmHg code = 6258994462) Diastolic BP (test 64 mmHg code = 6597600782) Heart Rate (test code 61 bpm = 4183606549) LVOT peak amrita (test 114.0 cm/s code = 7990379931) LVOT mn grad (test 3.0 mmHg code = 2870702919) Aortic valve mean 209.0 cm/s velocity (test code = 0295590935) Ao peak amrita (test 333.0 cm/s code = 6915704771) Ao VTI (test code = 71.7 cm 5038016038) AV LVOT peak gradient 5.2 mmHg (test code = 7221466721) LVOT peak VTI (test 29.0 cm code = 9005132087) AV Doppler amrita index 0.34 ratio VTI (test code = 9630212097) LV V1 mean (test code 82.60 cm/s = 3213989804) Ao max PG (test code 44.40 mm[Hg] = 0170721132) AV peak gradient 44.4 mmHg (test code = 3369349330) AV mean gradient 21.0 mmHg (test code = 6188636783) Radiology Study observation (narrative) (test code = 37546-1) ROBERT (test code = ROBERT) ?Aortic?Valve: Mechanical valve. ( [address] [facility]cy aortic valve conduit). Leaflets are not well visualized, but is likely a single tilting disc. Appears well seated. No transvalvular regurgitation. Trace paravalvular regurgitation. AV mean gradient is 21.0 mmHg. AV peak velocity is 333.0 cm/s. BP 120/60 and HR 62 bpm. DVI 0.41. AT 70 ms. Normal prosthetic aortic valve. Microcavitation is noted in the LVOT. No vegetations on this prosthetic aortic valve. Left VentricleLeft ventricle size is normal. Increased wall thickness. Normal systolic function.Right VentricleRight ventricle is normal in size and function.Left AtriumLeft atrium is dilated. Normal appendage flow velocity. No thrombus in left atrial appendage.Right AtriumRight atrium size is normal.IVC/SVCIVC was not assessed.Mitral ValveMildly thickened leaflets. Mild transvalvular regurgitation.Tricuspid ValveTricuspid valve structure is normal. Mild transvalvular regurgitation.Aortic ValveMechanical valve. ( [address] [facility]cy aortic valve conduit). Leaflets are not well visualized, but is likely a single tilting disc. Appears well seated. No transvalvular regurgitation. Trace paravalvular regurgitation. AV mean gradient is 21.0 mmHg. AV peak velocity is 333.0 cm/s. BP 120/60 and HR 62 bpm. DVI 0.41. AT 70 ms. Normal prosthetic aortic valve. Microcavitation is noted in the LVOT. No vegetations on this prosthetic aortic valve.Pulmonic ValveNot well visualized.Ascending AortaNormal sized sinus of Valsalva s/p [place]. Atherosclerosis of the aortic arch and descending aorta with moderate thickening.PericardiumTr ivial pericardial effusion present.Study DetailsA complete transesophageal echocardiogram was performed using complete 2D, color flow Doppler, spectral Doppler and complete 3D. During the study the esophageal view was captured. The probe was inserted by the vaccines solutions specialist. Probe in 0930. Probe out 0940. Moderate sedation was given. 4% Lidocaine was used for local oropharyngeal anesthesia. 1 mg of midazolam and 50 mcg of Fentanyl were administered during the study. There were no complications during the procedure. Based on abnormal findings of 2D echocardiogram, 3D was performed on an acquisition scanner for further assessment of the aortic valve. PHILLIP OQUENDO [facility] METABOLIC PANEL (NA, K, CL, CO2, GLUCOSE, BUN, CREATININE, CA)2022-06-11 09:30:25 Test Item Value Reference Range Interpretation Comments NA (test code = 137 mmol/L 135-145 0335694893) K (test code = 4.3 mmol/L 3.5-5.0 9758308642) CL (test code = 104 mmol/L 98-108 9052108747) CO2 TOTAL (test code = 30 mmol/L 23-31 4378414887) AGAP (test code = 3 2-16 8902874329) BUN (test code = 19 mg/dL 7-23 7952101467) GLUCOSE (test code = 102 mg/dL 70-110 8782514890) CREATININE (test code = 0.93 mg/dL 0.50-1.04 2264118106) CALCIUM (test code = 8.5 mg/dL 8.6-10.6 L 4985355832) eGFR (test code = 59.8 mL/min/1.73m2 9373516252) ROBERT (test code = ROBERT) Association of [...] tests). Lab Interpretation Abnormal (test code = 69512-8) [facility]MAGNESIUM2023-02-27 09:30:25 Test Item Value Reference Range Interpretation Comments MAGNESIUM (test code = 9079565477) 2.1 mg/dL 1.7-2.4 Lab Interpretation (test code = Normal 88792-6) [facility] CampusProthrombin Time / [id number] 09:18:08 Test Item Value Reference Range Interpretation Comments PROTIME PATIENT (test 19.8 See_Comment H [Auto mated message] code = 5964-2) The system Arch[employer] generated this result transmitted ref erence range: 10.1 - 1 2.6 Seconds. The reference range was not used to int erpret this result as normal/abnormal . INR (test code = 6301-6) 1.8 Nor mal INR <1.1; Warfarin Therap eutic range 2.0 to 3. 0 or 2.5 to 3.5, dep ending upon the indica tions. Lab Interpretation (test Abnormal code = 63092-4) [facility] CampusaPTT2023-02-27 09:18:08 Test Item Value Reference Range Interpretation Comments APTT Patient (test code 89 See_Comment H [Au tomated message] = 3173-2) The system [employer] generated this result transmitted ref erence range: 26 - 36 Seconds. The reference range was not used to int erpret this result as normal/abnormal . Lab Interpretation (test Abnormal code = 74883-8) [facility] 08[facility]57[facility]55 Test Item Value Reference Range Interpretation Comments MAGNESIUM (test code = 6711801107) 1.8 mg/dL 1.7-2.4 Lab Interpretation (test code = Normal 96234-1) [facility] CampusBAS[facility] METABOLIC PANEL (NA, K, CL, CO2, GLUCOSE, BUN, CREATININE, CA)2022-06-10 08:57:55 Test Item Value Reference Range Interpretation Comments NA (test code = 137 mmol/L 135-145 2225595449) K (test code = 4.0 mmol/L 3.5-5.0 6868710485) CL (test code = 100 mmol/L 98-108 0308559786) CO2 TOTAL (test code = 32 mmol/L 23-31 H 6420135139) AGAP (test code = 5 2-16 2455343086) BUN (test code = 24 mg/dL 7-23 H 4388364842) GLUCOSE (test code = 116 mg/dL 70-110 H 8808056984) CREATININE (test code = 1.00 mg/dL 0.50-1.04 6648275657) CALCIUM (test code = 9.1 mg/dL 8.6-10.6 4832847791) eGFR (test code = 55.0 mL/min/1.73m2 3346130321) ROBERT (test code = ROBERT) Association of [...] tests). Lab Interpretation Abnormal (test code = 48191-8) [facility] CampusProthrombin Time / [id number] 08:46:38 Test Item Value Reference Range Interpretation Comments PROTIME PATIENT (test 17.4 See_Comment H [Auto mated message] code = 5964-2) The system ich generated this result transmitted ref erence range: 10.1 - 1 2.6 Seconds. The reference range was not used to int erpret this result as normal/abnormal . INR (test code = 6301-6) 1.6 Nor mal INR <1.1; Warfarin Therap eutic range 2.0 to 3. 0 or 2.5 to 3.5, dep ending upon the indica tions. Lab Interpretation (test Abnormal code = 97966-3) [facility]PTT2023-02-26 08:46:38 Test Item Value Reference Range Interpretation Comments APTT Patient (test code 85 See_Comment H [Au tomated message] = 4863-2) The system ic h generated this result transmitted ref erence range: 26 - 36 Seconds. The reference range was not used to int erpret this result as normal/abnormal . Lab Interpretation (test Abnormal code = 87191-2) [facility] WITH [id number] 08:39:15 Test Item Value Reference Range Interpretation Comments WBC (test code = 4.75 See_Comment [Automated 6690-2) message] The sy stem which generated this result transmitted reference range : 4.30 - 11.10 10*3/?L. The reference range was not used to interpret this result as normal/abnormal . RBC (test code = 3.55 See_Comment L [Automated 449-8) message] The sy stem which generated this result transmitted reference range : 3.93 - 5.25 10*6/?L. The reference range was not used to interpret this result as normal/abnormal . HGB (test code = 11.0 g/dL 11.6-15.0 L 718-7) HCT (test code = 35.0 % 35.7-45.2 L 4544-3) MCV (test code = 98.6 fL 80.6-95.5 H 787-2) MCH (test code = 31.0 pg 25.9-32.8 785-6) MCHC (test code = 31.4 g/dL 31.6-35.1 L 786-4) RDW-SD (test code = 58.1 fL 39.0-49.9 H 23849-2) RDW-CV (test code = 16.1 % 12.0-15.5 H 788-0) PLT (test code = 197 See_Comment [Automated 777-3) message] The sy stem which generated this result transmitted reference range : 166 - 358 10*3/ ?L. The reference r tali was not used to interpret this result as normal/abnormal . MPV (test code = 10.2 fL 9.5-12.9 57137-5) NRBC/100 WBC (test 0.0 See_Comment [Automat ed code = 6063579035) message] The system which generated this result transmitted reference range : 0.0 - 10.0 /100 WBCs. The refer ence range was not u sed to interpret th is result as normal/abnormal . NRBC x10^3 (test code See_Comment [Auto mated = 9183907171) message] The s ystem which generated this result transmitted reference range : 10*3/?L. The reference range was not used to interpret this result as normal/abnormal . GRAN MAT (NEUT) % 58.4 % (test code = 770-8) IMM GRAN % (test code 0.20 % = 0007730216) LYMPH % (test code = 24.2 % 736-9) MONO % (test code = 10.9 % 5905-5) EOS % (test code = 5.5 % 713-8) BASO % (test code = 0.8 % 706-2) GRAN MAT x10^3(ANC) 2.77 10*3/uL 1.88-7.09 (test code = 9589640004) IMM GRAN x10^3 (test 0.00-0.06 code = 7686629827) LYMPH x10^3 (test code 1.15 10*3/uL 1.32-3.29 L = 731-0) MONO x10^3 (test code 0.52 10*3/uL 0.33-0.92 = 742-7) EOS x10^3 (test code = 0.26 10*3/uL 0.03-0.39 711-2) BASO x10^3 (test code 0.04 10*3/uL 0.01-0.07 = 704-7) Lab Interpretation Abnormal (test code = 11612-1) [facility]MAGN[facility]IUM2023-[facility]-25 10:39:27 Test Item Value Reference Range Interpretation Comments MAGNESIUM (test code = 7388988509) 1.6 mg/dL 1.7-2.4 L Lab Interpretation (test code = Abnormal 24815-4) [facility] (NA, K, CL, CO2, GLUCOSE, BUN, CREATININE, CA)2022-06-09 10:39:27 Test Item Value Reference Range Interpretation Comments NA (test code = 139 mmol/L 135-145 6628149052) K (test code = 4.1 mmol/L 3.5-5.0 2235891354) CL (test code = 96 mmol/L 98-108 L 0577185395) CO2 TOTAL (test code = 36 mmol/L 23-31 H 3627456518) AGAP (test code = 7 2-16 8125568267) BUN (test code = 27 mg/dL 7-23 H 1936920080) GLUCOSE (test code = 116 mg/dL 70-110 H 7378328559) CREATININE (test code = 1.21 mg/dL 0.50-1.04 H 5470135389) CALCIUM (test code = 9.3 mg/dL 8.6-10.6 9529606105) eGFR (test code = 44.1 mL/min/1.73m2 5488647664) ROBERT (test code = ROBERT) Association of [...] tests). Lab Interpretation Abnormal (test code = 53619-1) [facility] CampusProthrombin Time / [id number] 10:26:27 Test Item Value Reference Range Interpretation Comments PROTIME PATIENT (test 18.7 See_Comment H [Auto mated message] code = 5964-2) The system wh ich generated this result transmitted ref erence range: 10.1 - 1 2.6 Seconds. The reference range was not used to int erpret this result as normal/abnormal . INR (test code = 6301-6) 1.7 Nor mal INR <1.1; Warfarin Therap eutic range 2.0 to 3. 0 or 2.5 to 3.5, dep ending upon the indica tions. Lab Interpretation (test Abnormal code = 88244-8) [facility]CB WITH [id number] 10:16:07 Test Item Value Reference Range Interpretation Comments WBC (test code = 7.65 See_Comment [Automated 0290-2) message] The sy stem which generated this result transmitted reference range : 4.30 - 11.10 10*3/?L. The reference range was not used to interpret this result as normal/abnormal . RBC (test code = 3.99 See_Comment [Automated 043-8) message] The sy stem which generated this result transmitted reference range : 3.93 - 5.25 10*6/?L. The reference range was not used to interpret this result as normal/abnormal . HGB (test code = 12.1 g/dL 11.6-15.0 718-7) HCT (test code = 38.8 % 35.7-45.2 4544-3) MCV (test code = 97.2 fL 80.6-95.5 H 787-2) MCH (test code = 30.3 pg 25.9-32.8 785-6) MCHC (test code = 31.2 g/dL 31.6-35.1 L 786-4) RDW-SD (test code = 58.8 fL 39.0-49.9 H 86300-1) RDW-CV (test code = 16.3 % 12.0-15.5 H 788-0) PLT (test code = 244 See_Comment [Automated 777-3) message] The sy stem which generated this result transmitted reference range : 166 - 358 10*3/ ?L. The reference r tali was not used to interpret this result as normal/abnormal . MPV (test code = 10.1 fL 9.5-12.9 92228-9) NRBC/100 WBC (test 0.0 See_Comment [Automat ed code = 1220688051) message] The system which generated this result transmitted reference range : 0.0 - 10.0 /100 WBCs. The refer ence range was not u sed to interpret th is result as normal/abnormal . NRBC x10^3 (test code See_Comment [Auto mated = 1264358696) message] The s ystem which generated this result transmitted reference range : 10*3/?L. The reference range was not used to interpret this result as normal/abnormal . GRAN MAT (NEUT) % 75.8 % (test code = 770-8) IMM GRAN % (test code 0.30 % = 0434179723) LYMPH % (test code = 12.5 % 736-9) MONO % (test code = 8.5 % 5905-5) EOS % (test code = 2.0 % 713-8) BASO % (test code = 0.9 % 706-2) GRAN MAT x10^3(ANC) 5.80 10*3/uL 1.88-7.09 (test code = 7339893721) IMM GRAN x10^3 (test 0.00-0.06 code = 3433667620) LYMPH x10^3 (test code 0.96 10*3/uL 1.32-3.29 L = 731-0) MONO x10^3 (test code 0.65 10*3/uL 0.33-0.92 = 742-7) EOS x10^3 (test code = 0.15 10*3/uL 0.03-0.39 711-2) BASO x10^3 (test code 0.07 10*3/uL 0.01-0.07 = 704-7) Lab Interpretation Abnormal (test code = 39331-6) [facility] CampusTransthoracic echo (TTE)2022-06-07 21:12:16 Test Item Value Reference Range Interpretation Comments Height (test code = 63 in 0638251717) Weight (test code = 101 lbs 3758164382) Systolic BP (test code 127 mmHg = 6570577605) Diastolic BP (test code 43 mmHg = 0059585667) Heart Rate (test code = 50 bpm 6734095977) BSA (test code = 1.45 m2 4244700768) LVOT diameter (test 1.62 cm code = 2123480499) LVOT area (test code = 2.05 cm2 9788765022) Ao root diam (test code 2.34 cm = 7387142754) Aortic root (test code 2.34 cm = 0933133572) Ao root annulus (test 2.34 cm code = 0692254679) LA size (test code = 4.9 cm 8531530689) TR Peak Amrita (test code 209.0 cm/s = 6980341721) Triscuspid Valve 17.5 mmHg Regurgitation Peak Gradient (test code = 4373452929) PV REGURGITATION PEAK 8.9 mmHg GRADIENT (test code = 5217310332) PI dec slope (test code 81.30 cm/s2 = 9709647136) E wave decelartion time 0.26 s (test code = 6778588749) MV Peak A Amrita (test 58.0 cm/s code = 4334127495) MV Peak E Amrita (test 116.0 cm/s code = 8583254806) E/A ratio (test code = 2.00 ratio 6038472569) MR max PG (test code = 125.90 mm[Hg] 4972645664) MR max amrita (test code = 561.00 cm/s 7006149499) Mr max amrita (test code = 561.0 m/s 6909448493) MV Prop V (test code = 33.60 cm/s 6738797152) LAV(MOD-sp4) (test code 50.40 mL = 0683892174) MV E/e' septal (test 5.1 cm/s code = 0155816699) Tapse (test code = 1.37 cm 5411038910) LVOT stroke volume 42.60 cm3 (test code = 3790067695) LVOT peak amrita (test 96.3 cm/s code = 0896281161) LVOT mn grad (test code 1.6 mmHg = 3692101887) AV LVOT peak gradient 3.7 mmHg (test code = 2724711814) LVOT peak VTI (test 20.8 cm code = 9492074546) LV V1 mean (test code = 59.50 cm/s 9768012004) LA Volume Index (BP) 39.6 mL/m2 (test code = 6669005691) LA volume (BP) (test 57.2 mL code = 6681574673) LAV(MOD-sp2) (test code 59.90 mL = 0083500014) AV regurgitation 482.7 ms pressure 1/2 time (test code = 1618144829) AI dec slope (test code 212.30 cm/s2 = 9766860901) AI max amrita (test code = 349.90 cm/s 8918281480) AI max PG (test code = 49.00 mm[Hg] 0080118637) LVIDD (test code = 3.90 cm 5326642299) Left Ventricular End 66.7 mL Diastolic Volume by Teichholz Method (test code = 7430625) EF(Teich) (test code = 67.60 % 2372576721) FS (test code = 37 % 5449172789) EF - 2D (test code = 67.60 % 30839368) IVS (test code = 1.22 cm 8953472570) Interventricular Septum 1.22 cm Diastolic Thickness by 2D (test code = 7176547) LVPWD (test code = 1.12 cm 0927047989) PW (test code = 1.12 cm 0.6-1.7 9741400451) LVIDS (test code = 2.47 cm 4935047835) Left Ventricular End 21.6 mL Systolic Volume by Teichholz Method (test code = 0634568) Aortic valve mean 210.4 cm/s velocity (test code = 0528121521) Ao peak amrita (test code 307.4 cm/s = 2323370583) Ao VTI (test code = 68.2 cm 1158845298) AV area by cont VTI 0.6 cm2 (test code = 0468472256) AV area peak amrita (test 0.6 cm2 code = 5371980523) Ao max PG (test code = 37.80 mm[Hg] 5718119652) AV peak gradient (test 37.8 mmHg code = 3535625885) AV valve area (test 0.63 cm2 code = 0752057752) AV mean gradient (test 19.8 mmHg code = 8109196968) Radiology Study observation (narrative) (test code = 46474-5) ROBERT (test code = ROBERT) ?Left?Ventricle: Left ventricle size is normal. There is mild concentric hypertrophy. Septal motion is consistent with post-operative status. No regional wall motion abnormalities. Normal systolic function with a visually estimated EF of greater than 65%. There is grade 3 diastolic dysfunction and restrictive diastolic dysfunction. Elevated left ventricular filling pressure. ?Left?Atrium: Left atrium is mildly dilated. Left atrium volume index is 39.6 mL/m2. ?Mitral?Valve: Thickened MV, consider myxomatous degeneration. Cosndier MARGA for further assesmsent. Mild transvalvular regurgitation. ?Aortic?Valve: Mechanical valve. Leaflets are not visualized. Mild to moderate transvalvular regurgitation. AV mean gradient is 22.1 mmHg. AV peak velocity is 329.5 cm/s. BP 120/43 and HR 53 bpm. DVI 0.29 and AT 50 ms. EOA 0.6 cm2 and EOAi 0.41 cm2/m2. Findings are abnormal. Recommend MARGA to assess for PPM versus obstruction. There is a highly mobile filamentous structure seen moving independently in and out the LVOT. Cannot rule out a vegetation vs. suture vs. thrombus. Left VentricleLeft ventricle size is normal. There is mild concentric hypertrophy. Septal motion is consistent with post-operative status. No regional wall motion abnormalities. Normal systolic function with a visually estimated EF of greater than 65%. There is grade 3 diastolic dysfunction and restrictive diastolic dysfunction. Elevated left ventricular filling pressure.Right VentricleRight ventricle is normal in size and function.Left AtriumLeft atrium is mildly dilated. Left atrium volume index is 39.6 mL/m2.Right AtriumRight atrium size is normal.IVC/SVCIVC diameter is less than or equal to 21 mm and decreases greater than 50% during inspiration; therefore the estimated right atrial pressure is normal (~0-5 mmHg). IVC normal in size and respiratory variation.Mitral ValveThickened MV, consider myxomatous degeneration. Cosndier MARGA for further assesmsent. Mild transvalvular regurgitation.Tricuspi d ValveTricuspid valve structure is normal. Mild transvalvular regurgitation. RVSP equals 18 mmHg + RAP.Aortic ValveMechanical valve. Leaflets are not visualized. Mild to moderate transvalvular regurgitation. AV mean gradient is 22.1 mmHg. AV peak velocity is 329.5 cm/s. BP 120/43 and HR 53 bpm. DVI 0.29 and AT 50 ms. EOA 0.6 cm2 and EOAi 0.41 cm2/m2. Findings are abnormal. Recommend MARGA to assess for PPM versus obstruction. There is a highly mobile filamentous structure seen moving independently in and out the LVOT. Cannot rule out a vegetation vs. suture vs. thrombus.Pulmonic ValveValve structure is normal. Mild transvalvular regurgitation.Ascendin g AortaNot well visualized.Pericardium Trivial pericardial effusion present.Study DetailsStudy quality was good. A complete echocardiogram was performed using 2D, color flow Doppler and spectral Doppler. [facility] METABOLIC [id number] 05:06:36 Test Item Value Reference Range Interpretation Comments SODIUM (BEAKER) 136 meq/L 136-145 (test code = 381) POTASSIUM 4.5 meq/L 3.5-5.1 Specimen slight ly (BEAKER) (test hemolyzed code = 379) CHLORIDE (BEAKER) 104 meq/L 98-107 (test code = 382) CO2 (BEAKER) 24 meq/L 22-29 (test code = 355) BLOOD UREA 26 mg/dL 7-21 H NITROGEN (BEAKER) (test code = 354) CREATININE 0.73 mg/dL 0.57-1.25 Specimen slight ly (BEAKER) (test hemolyzed code = 358) GLUCOSE RANDOM 89 mg/dL 70-105 (BEAKER) (test code = 652) CALCIUM (BEAKER) 9.1 mg/dL 8.4-10.2 (test code = 697) EGFR (BEAKER) 90 Interpretatio n of eGFR (test code = mL/min/1.73 values Stage De scription 1092) sq m Result G1 Stephy l or high >=90 G2 Mildly decreased 60-89 G3a Mildl y to moderately 45-5 9 G3b Moderately to s everely 30-44 G4 Severl y decreased 15-29 G5 Kidney failure <15Reported eGF R is based on the CKD-EPI 2020 equation that d oes not use a race coefficientEsti mated GFR is not as accur ate as Creatinine Rose [place] in predicting glom erular filtration rate . Estimated GFR is not appl icable for dialysis patien ts [employer] Loader ID - PIAYA [id number] 05:06:35 Test Item Value Reference Range Interpretation Comments MAGNESIUM (BEAKER) 1.7 mg/dL 1.6-2.6 Specimen slightly (test code = 627) hemolyzed [employer] Loader ID - ARMAND LPROTHROMBIN [id number] 04:57:12 Test Item Value Reference Range Interpretation Comments PROTIME (BEAKER) (test code = 29.3 seconds 11.9-14.2 H 759) INR (BEAKER) (test code = 370) 2.99 <=5.90 RECOMMENDED COUMADIN/WARFARIN INR THERAPY RANGESSTANDARD DOSE: 2.0 - 3.0 Includes: PROPHYLAXIS for venous thrombosis, systemic embolization; TREATMENT for venous thrombosis and/or pulmonary embolus.HIGH RISK: Target INR is 2.5-3.5 for patients with mechanical heart valves.CBC W/PLT COUNT & AUTO [id number] 04:49:51 Test Item Value Reference Range Interpretation Comments WHITE BLOOD CELL COUNT (BEAKER) 5.9 K/ L 3.5-10.5 (test code = 775) RED BLOOD CELL COUNT (BEAKER) 3.05 M/ L 3.93-5.22 L (test code = 761) HEMOGLOBIN (BEAKER) (test code = 9.3 GM/DL 11.2-15.7 L 410) HEMATOCRIT (BEAKER) (test code = 29.7 % 34.1-44.9 L 411) MEAN CORPUSCULAR VOLUME (BEAKER) 97 fL 79-95 H (test code = 753) MEAN CORPUSCULAR HEMOGLOBIN 30.5 pg 25.6-32.2 (BEAKER) (test code = 751) MEAN CORPUSCULAR HEMOGLOBIN CONC 31.3 GM/DL 32.2-35.5 L (BEAKER) (test code = 752) RED CELL DISTRIBUTION WIDTH 17.3 % 11.7-14.4 H (BEAKER) (test code = 412) PLATELET COUNT (BEAKER) (test 270 K/CU MM 150-450 code = 756) MEAN PLATELET VOLUME (BEAKER) 10.0 fL 9.4-12.3 (test code = 754) NUCLEATED RED BLOOD CELLS 0 /100 WBC 0-0 (BEAKER) (test code = 413) NEUTROPHILS RELATIVE PERCENT 61 % (BEAKER) (test code = 429) LYMPHOCYTES RELATIVE PERCENT 18 % (BEAKER) (test code = 430) MONOCYTES RELATIVE PERCENT 14 % (BEAKER) (test code = 431) EOSINOPHILS RELATIVE PERCENT 6 % (BEAKER) (test code = 432) BASOPHILS RELATIVE PERCENT 1 % (BEAKER) (test code = 437) NEUTROPHILS ABSOLUTE COUNT 3.55 K/ L 1.56-6.13 (BEAKER) (test code = 670) LYMPHOCYTES ABSOLUTE COUNT 1.05 K/ L 1.18-3.74 L (BEAKER) (test code = 414) MONOCYTES ABSOLUTE COUNT (BEAKER) 0.82 K/ L 0.24-0.36 H (test code = 415) EOSINOPHILS ABSOLUTE COUNT 0.34 K/ L 0.04-0.36 (BEAKER) (test code = 416) BASOPHILS ABSOLUTE COUNT (BEAKER) 0.07 K/ L 0.01-0.08 (test code = 417) IMMATURE GRANULOCYTES-RELATIVE 0.30 % 0.00-1.00 PERCENT (BEAKER) (test code = 2801) [id number] 10:05:40 Test Item Value Reference Range Interpretation Comments PARTIAL THROMBOPLASTIN TIME 49.3 seconds 22.5-36.0 H (BEAKER) (test code = 760) [id number] 07:34:27 Test Item Value Reference Range Interpretation Comments PARTIAL THROMBOPLASTIN TIME > seconds 22.5-36.0 HH (BEAKER) (test code = 760) [id number] 07:21:03 Test Item Value Reference Range Interpretation Comments MAGNESIUM (BEAKER) (test code = 2.0 mg/dL 1.6-2.6 627) [employer] Loader ID - ARMAND LBASIC METABOLIC [id number] 07:21:02 Test Item Value Reference Range Interpretation Comments SODIUM (BEAKER) 139 meq/L 136-145 (test code = 381) POTASSIUM 4.4 meq/L 3.5-5.1 (BEAKER) (test code = 379) CHLORIDE (BEAKER) 107 meq/L 98-107 (test code = 382) CO2 (BEAKER) 25 meq/L 22-29 (test code = 355) BLOOD UREA 20 mg/dL 7-21 NITROGEN (BEAKER) (test code = 354) CREATININE 0.75 mg/dL 0.57-1.25 (BEAKER) (test code = 358) GLUCOSE RANDOM 100 mg/dL 70-105 (BEAKER) (test code = 652) CALCIUM (BEAKER) 9.6 mg/dL 8.4-10.2 (test code = 697) EGFR (BEAKER) 87 Interpretatio n of eGFR (test code = mL/min/1.73 values Stage De scription 1092) sq m Result G1 Stephy l or high >=90 G2 Mildly decreased 60-89 G3a Mildl y to moderately 45-5 9 G3b Moderately to s everely 30-44 G4 Severl y decreased 15-29 G5 Kidney failure <15Reported eGF R is based on the CKD-EPI 2020 equation that d oes not use a race coefficientEsti mated GFR is not as accur ate as Creatinine Rose osborne in predicting glom erular filtration rate . Estimated GFR is not appl icable for dialysis patien ts [employer] Loader ID - ARMAND LPROTHROMBIN [id number] 07:11:04 Test Item Value Reference Range Interpretation Comments PROTIME (BEAKER) (test code = 21.7 seconds 11.9-14.2 H 759) INR (BEAKER) (test code = 370) 2.03 <=5.90 RECOMMENDED COUMADIN/WARFARIN INR THERAPY RANGESSTANDARD DOSE: 2.0 - 3.0 Includes: PROPHYLAXIS for venous thrombosis, systemic embolization; TREATMENT for venous thrombosis and/or pulmonary embolus.HIGH RISK: Target INR is 2.5-3.5 for patients with mechanical heart valves.CBC W/PLT COUNT & AUTO [id number] 06:42:15 Test Item Value Reference Range Interpretation Comments WHITE BLOOD CELL COUNT (BEAKER) 7.2 K/ L 3.5-10.5 (test code = 775) RED BLOOD CELL COUNT (BEAKER) 3.20 M/ L 3.93-5.22 L (test code = 761) HEMOGLOBIN (BEAKER) (test code = 9.6 GM/DL 11.2-15.7 L 410) HEMATOCRIT (BEAKER) (test code = 30.8 % 34.1-44.9 L 411) MEAN CORPUSCULAR VOLUME (BEAKER) 96 fL 79-95 H (test code = 753) MEAN CORPUSCULAR HEMOGLOBIN 30.0 pg 25.6-32.2 (BEAKER) (test code = 751) MEAN CORPUSCULAR HEMOGLOBIN CONC 31.2 GM/DL 32.2-35.5 L (BEAKER) (test code = 752) RED CELL DISTRIBUTION WIDTH 17.5 % 11.7-14.4 H (BEAKER) (test code = 412) PLATELET COUNT (BEAKER) (test 259 K/CU MM 150-450 code = 756) MEAN PLATELET VOLUME (BEAKER) 10.3 fL 9.4-12.3 (test code = 754) NUCLEATED RED BLOOD CELLS 0 /100 WBC 0-0 (BEAKER) (test code = 413) NEUTROPHILS RELATIVE PERCENT 67 % (BEAKER) (test code = 429) LYMPHOCYTES RELATIVE PERCENT 16 % (BEAKER) (test code = 430) MONOCYTES RELATIVE PERCENT 12 % (BEAKER) (test code = 431) EOSINOPHILS RELATIVE PERCENT 4 % (BEAKER) (test code = 432) BASOPHILS RELATIVE PERCENT 1 % (BEAKER) (test code = 437) NEUTROPHILS ABSOLUTE COUNT 4.77 K/ L 1.56-6.13 (BEAKER) (test code = 670) LYMPHOCYTES ABSOLUTE COUNT 1.17 K/ L 1.18-3.74 L (BEAKER) (test code = 414) MONOCYTES ABSOLUTE COUNT (BEAKER) 0.82 K/ L 0.24-0.36 H (test code = 415) EOSINOPHILS ABSOLUTE COUNT 0.31 K/ L 0.04-0.36 (BEAKER) (test code = 416) BASOPHILS ABSOLUTE COUNT (BEAKER) 0.06 K/ L 0.01-0.08 (test code = 417) IMMATURE GRANULOCYTES-RELATIVE 0.40 % 0.00-1.00 PERCENT (BEAKER) (test code = 2801) [id number] 01:06:03 Test Item Value Reference Range Interpretation Comments PARTIAL THROMBOPLASTIN TIME 90.3 seconds 22.5-36.0 H (BEAKER) (test code = 760) [id number] 23:34:15 Test Item Value Reference Range Interpretation Comments PARTIAL THROMBOPLASTIN TIME > seconds 22.5-36.0 HH (BEAKER) (test code = 760) [id number] 14:56:56 Test Item Value Reference Range Interpretation Comments PARTIAL THROMBOPLASTIN TIME 40.2 seconds 22.5-36.0 H (BEAKER) (test code = 760) [id number] 12:49:04 Test Item Value Reference Range Interpretation Comments PARTIAL THROMBOPLASTIN TIME 139.9 seconds 22.5-36.0 H (BEAKER) (test code = 760) [id number] 08:00:43 Test Item Value Reference Range Interpretation Comments MAGNESIUM (BEAKER) (test code = 1.5 mg/dL 1.6-2.6 L 627) [employer] Loader ID - MARCOBASIC METABOLIC [id number] 08:00:42 Test Item Value Reference Range Interpretation Comments SODIUM (BEAKER) 137 meq/L 136-145 (test code = 381) POTASSIUM 4.1 meq/L 3.5-5.1 (BEAKER) (test code = 379) CHLORIDE (BEAKER) 104 meq/L 98-107 (test code = 382) CO2 (BEAKER) 28 meq/L 22-29 (test code = 355) BLOOD UREA 19 mg/dL 7-21 NITROGEN (BEAKER) (test code = 354) CREATININE 0.82 mg/dL 0.57-1.25 (BEAKER) (test code = 358) GLUCOSE RANDOM 103 mg/dL 70-105 (BEAKER) (test code = 652) CALCIUM (BEAKER) 9.5 mg/dL 8.4-10.2 (test code = 697) EGFR (BEAKER) 78 Interpretatio n of eGFR (test code = mL/min/1.73 values Stage De scription 1092) sq m Result G1 Stephy l or high >=90 G2 Mildly decreased 60-89 G3a Mildl y to moderately 45-5 9 G3b Moderately to s everely 30-44 G4 Severl y decreased 15-29 G5 Kidney failure <15Reported eGF R is based on the CKD-EPI 2020 equation that d oes not use a race coefficientEsti mated GFR is not as accur ate as Creatinine Rose [place] in predicting glom erular filtration rate . Estimated GFR is not appl icable for dialysis patien ts [employer] Loader ID - [id number] 06:54:28 Test Item Value Reference Range Interpretation Comments PARTIAL THROMBOPLASTIN TIME 180.9 seconds 22.5-36.0 HH (BEAKER) (test code = 760) [id number] 06:30:25 Test Item Value Reference Range Interpretation Comments PARTIAL THROMBOPLASTIN TIME 61.3 seconds 22.5-36.0 H (BEAKER) (test code = 760) [id number] 04:16:14 Test Item Value Reference Range Interpretation Comments PARTIAL THROMBOPLASTIN TIME > seconds 22.5-36.0 HH (BEAKER) (test code = 760) PROTHROMBIN [id number] 03:42:33 Test Item Value Reference Range Interpretation Comments PROTIME (BEAKER) (test code = 16.6 seconds 11.9-14.2 H 759) INR (BEAKER) (test code = 370) 1.38 <=5.90 RECOMMENDED COUMADIN/WARFARIN INR THERAPY RANGESSTANDARD DOSE: 2.0 - 3.0 Includes: PROPHYLAXIS for venous thrombosis, systemic embolization; TREATMENT for venous thrombosis and/or pulmonary embolus.HIGH RISK: Target INR is 2.5-3.5 for patients with mechanical heart valves.CBC W/PLT COUNT & AUTO [id number] 03:35:52 Test Item Value Reference Range Interpretation Comments WHITE BLOOD CELL COUNT (BEAKER) 7.4 K/ L 3.5-10.5 (test code = 775) RED BLOOD CELL COUNT (BEAKER) 3.25 M/ L 3.93-5.22 L (test code = 761) HEMOGLOBIN (BEAKER) (test code = 9.9 GM/DL 11.2-15.7 L 410) HEMATOCRIT (BEAKER) (test code = 31.7 % 34.1-44.9 L 411) MEAN CORPUSCULAR VOLUME (BEAKER) 98 fL 79-95 H (test code = 753) MEAN CORPUSCULAR HEMOGLOBIN 30.5 pg 25.6-32.2 (BEAKER) (test code = 751) MEAN CORPUSCULAR HEMOGLOBIN CONC 31.2 GM/DL 32.2-35.5 L (BEAKER) (test code = 752) RED CELL DISTRIBUTION WIDTH 17.2 % 11.7-14.4 H (BEAKER) (test code = 412) PLATELET COUNT (BEAKER) (test 223 K/CU MM 150-450 code = 756) MEAN PLATELET VOLUME (BEAKER) 10.4 fL 9.4-12.3 (test code = 754) NUCLEATED RED BLOOD CELLS 0 /100 WBC 0-0 (BEAKER) (test code = 413) NEUTROPHILS RELATIVE PERCENT 66 % (BEAKER) (test code = 429) LYMPHOCYTES RELATIVE PERCENT 17 % (BEAKER) (test code = 430) MONOCYTES RELATIVE PERCENT 12 % (BEAKER) (test code = 431) EOSINOPHILS RELATIVE PERCENT 4 % (BEAKER) (test code = 432) BASOPHILS RELATIVE PERCENT 1 % (BEAKER) (test code = 437) NEUTROPHILS ABSOLUTE COUNT 4.94 K/ L 1.56-6.13 (BEAKER) (test code = 670) LYMPHOCYTES ABSOLUTE COUNT 1.23 K/ L 1.18-3.74 (BEAKER) (test code = 414) MONOCYTES ABSOLUTE COUNT (BEAKER) 0.86 K/ L 0.24-0.36 H (test code = 415) EOSINOPHILS ABSOLUTE COUNT 0.30 K/ L 0.04-0.36 (BEAKER) (test code = 416) BASOPHILS ABSOLUTE COUNT (BEAKER) 0.06 K/ L 0.01-0.08 (test code = 417) IMMATURE GRANULOCYTES-RELATIVE 0.70 % 0.00-1.00 PERCENT (BEAKER) (test code = 2801) [id number] 20:27:00 Test Item Value Reference Range Interpretation Comments PARTIAL THROMBOPLASTIN TIME 53.4 seconds 22.5-36.0 H (BEAKER) (test code = 760) [id number] 18:26:32 Test Item Value Reference Range Interpretation Comments PARTIAL THROMBOPLASTIN TIME 112.2 seconds 22.5-36.0 H (BEAKER) (test code = 760) [id number] 10:53:07 Test Item Value Reference Range Interpretation Comments PARTIAL THROMBOPLASTIN TIME 48.7 seconds 22.5-36.0 H (BEAKER) (test code = 760) [id number] 04:20:11 Test Item Value Reference Range Interpretation Comments PARTIAL THROMBOPLASTIN TIME 50.2 seconds 22.5-36.0 H (BEAKER) (test code = 760) [id number] 02:16:45 Test Item Value Reference Range Interpretation Comments PARTIAL THROMBOPLASTIN TIME 120.7 seconds 22.5-36.0 H (BEAKER) (test code = 760) [id number] 01:49:02 Test Item Value Reference Range Interpretation Comments MAGNESIUM (BEAKER) (test code = 1.7 mg/dL 1.6-2.6 627) [employer] ID - [id number] 01:49:02 Test Item Value Reference Range Interpretation Comments PHOSPHORUS (BEAKER) (test code = 4.7 mg/dL 2.3-4.7 604) [employer] ID - BSBASIC METABOLIC [id number] 01:49:01 Test Item Value Reference Range Interpretation Comments SODIUM (BEAKER) 137 meq/L 136-145 (test code = 381) POTASSIUM 4.5 meq/L 3.5-5.1 (BEAKER) (test code = 379) CHLORIDE (BEAKER) 101 meq/L 98-107 (test code = 382) CO2 (BEAKER) 25 meq/L 22-29 (test code = 355) BLOOD UREA 17 mg/dL 7-21 NITROGEN (BEAKER) (test code = 354) CREATININE 0.81 mg/dL 0.57-1.25 (BEAKER) (test code = 358) GLUCOSE RANDOM 110 mg/dL 70-105 H (BEAKER) (test code = 652) CALCIUM (BEAKER) 10.1 mg/dL 8.4-10.2 (test code = 697) EGFR (BEAKER) 79 Interpretatio n of eGFR (test code = mL/min/1.73 values Stage De scription 1092) sq m Result G1 Stephy l or high >=90 G2 Mildly decreased 60-89 G3a Mildl y to moderately 45-5 9 G3b Moderately to s everely 30-44 G4 Severl y decreased 15-29 G5 Kidney failure <15Reported eGF R is based on the CKD-EPI 2020 equation that d oes not use a race coefficientEsti mated GFR is not as accur ate as Creatinine [place] in predicting glom erular filtration rate . Estimated GFR is not appl icable for dialysis patien ts [employer] Loader ID - BSPROTHROMBIN TIME/[id number] 01:46:19 Test Item Value Reference Range Interpretation Comments PROTIME (BEAKER) (test code = 14.3 seconds 11.9-14.2 H 759) INR (BEAKER) (test code = 370) 1.18 <=5.90 RECOMMENDED COUMADIN/WARFARIN INR THERAPY RANGESSTANDARD DOSE: 2.0 - 3.0 Includes: PROPHYLAXIS for venous thrombosis, systemic embolization; TREATMENT for venous thrombosis and/or pulmonary embolus.HIGH RISK: Target INR is 2.5-3.5 for patients with mechanical heart valves.CBC W/PLT COUNT & AUTO [id number] 01:29:16 Test Item Value Reference Range Interpretation Comments WHITE BLOOD CELL COUNT (BEAKER) 8.3 K/ L 3.5-10.5 (test code = 775) RED BLOOD CELL COUNT (BEAKER) 3.19 M/ L 3.93-5.22 L (test code = 761) HEMOGLOBIN (BEAKER) (test code = 9.6 GM/DL 11.2-15.7 L 410) HEMATOCRIT (BEAKER) (test code = 30.6 % 34.1-44.9 L 411) MEAN CORPUSCULAR VOLUME (BEAKER) 96 fL 79-95 H (test code = 753) MEAN CORPUSCULAR HEMOGLOBIN 30.1 pg 25.6-32.2 (BEAKER) (test code = 751) MEAN CORPUSCULAR HEMOGLOBIN CONC 31.4 GM/DL 32.2-35.5 L (BEAKER) (test code = 752) RED CELL DISTRIBUTION WIDTH 17.5 % 11.7-14.4 H (BEAKER) (test code = 412) PLATELET COUNT (BEAKER) (test 229 K/CU MM 150-450 code = 756) MEAN PLATELET VOLUME (BEAKER) 10.0 fL 9.4-12.3 (test code = 754) NUCLEATED RED BLOOD CELLS 0 /100 WBC 0-0 (BEAKER) (test code = 413) NEUTROPHILS RELATIVE PERCENT 70 % (BEAKER) (test code = 429) LYMPHOCYTES RELATIVE PERCENT 15 % (BEAKER) (test code = 430) MONOCYTES RELATIVE PERCENT 9 % (BEAKER) (test code = 431) EOSINOPHILS RELATIVE PERCENT 4 % (BEAKER) (test code = 432) BASOPHILS RELATIVE PERCENT 1 % (BEAKER) (test code = 437) NEUTROPHILS ABSOLUTE COUNT 5.84 K/ L 1.56-6.13 (BEAKER) (test code = 670) LYMPHOCYTES ABSOLUTE COUNT 1.24 K/ L 1.18-3.74 (BEAKER) (test code = 414) MONOCYTES ABSOLUTE COUNT (BEAKER) 0.74 K/ L 0.24-0.36 H (test code = 415) EOSINOPHILS ABSOLUTE COUNT 0.32 K/ L 0.04-0.36 (BEAKER) (test code = 416) BASOPHILS ABSOLUTE COUNT (BEAKER) 0.06 K/ L 0.01-0.08 (test code = 417) IMMATURE GRANULOCYTES-RELATIVE 1.30 % 0.00-1.00 H PERCENT (BEAKER) (test code = 2801) [id number] 18:43:50 Test Item Value Reference Range Interpretation Comments PARTIAL THROMBOPLASTIN TIME 56.0 seconds 22.5-36.0 H (BEAKER) (test code = 760) [id number] 16:49:50 Test Item Value Reference Range Interpretation Comments PARTIAL THROMBOPLASTIN TIME 123.0 seconds 22.5-36.0 H (BEAKER) (test code = 760) [id number] 08:57:26 Test Item Value Reference Range Interpretation Comments PARTIAL THROMBOPLASTIN TIME 48.3 seconds 22.5-36.0 H (BEAKER) (test code = 760) [id number] 05:52:08 Test Item Value Reference Range Interpretation Comments PARTIAL THROMBOPLASTIN TIME 134.4 seconds 22.5-36.0 H (BEAKER) (test code = 760) PROTHROMBIN TIME/[id number] 05:18:02 Test Item Value Reference Range Interpretation Comments PROTIME (BEAKER) (test code = 14.1 seconds 11.9-14.2 759) INR (BEAKER) (test code = 370) 1.16 <=5.90 RECOMMENDED COUMADIN/WARFARIN INR THERAPY RANGESSTANDARD DOSE: 2.0 - 3.0 Includes: PROPHYLAXIS for venous thrombosis, systemic embolization; TREATMENT for venous thrombosis and/or pulmonary embolus.HIGH RISK: Target INR is 2.5-3.5 for patients with mechanical heart valves.[id number] 05:06:39 Test Item Value Reference Range Interpretation Comments PHOSPHORUS (BEAKER) (test code = 4.9 mg/dL 2.3-4.7 H 604) [employer] ID - BSBASIC METABOLIC [id number] 05:06:38 Test Item Value Reference Range Interpretation Comments SODIUM (BEAKER) 139 meq/L 136-145 (test code = 381) POTASSIUM 4.3 meq/L 3.5-5.1 (BEAKER) (test code = 379) CHLORIDE (BEAKER) 103 meq/L 98-107 (test code = 382) CO2 (BEAKER) 26 meq/L 22-29 (test code = 355) BLOOD UREA 17 mg/dL 7-21 NITROGEN (BEAKER) (test code = 354) CREATININE 0.78 mg/dL 0.57-1.25 (BEAKER) (test code = 358) GLUCOSE RANDOM 100 mg/dL 70-105 (BEAKER) (test code = 652) CALCIUM (BEAKER) 9.7 mg/dL 8.4-10.2 (test code = 697) EGFR (BEAKER) 83 Interpretatio n of eGFR (test code = mL/min/1.73 values Stage De scription 1092) sq m Result G1 Stephy l or high >=90 G2 Mildly decreased 60-89 G3a Mildl y to moderately 45-5 9 G3b Moderately to s everely 30-44 G4 Severl y decreased 15-29 G5 Kidney failure <15Reported eGF R is based on the CKD-EPI 2021 equation that d oes not use a race coefficientEsti mated GFR is not as accur ate as Creatinine [place] in predicting glom erular filtration rate . Estimated GFR is not appl icable for dialysis patien ts [employer] Loader ID - [id number] 05:06:38 Test Item Value Reference Range Interpretation Comments MAGNESIUM (BEAKER) (test code = 1.7 mg/dL 1.6-2.6 627) [employer]er ID - BSCBC W/PLT COUNT & AUTO [id number] 04:48:51 Test Item Value Reference Range Interpretation Comments WHITE BLOOD CELL COUNT (BEAKER) 5.8 K/ L 3.5-10.5 (test code = 775) RED BLOOD CELL COUNT (BEAKER) 3.34 M/ L 3.93-5.22 L (test code = 761) HEMOGLOBIN (BEAKER) (test code = 10.0 GM/DL 11.2-15.7 L 410) HEMATOCRIT (BEAKER) (test code = 32.8 % 34.1-44.9 L 411) MEAN CORPUSCULAR VOLUME (BEAKER) 98 fL 79-95 H (test code = 753) MEAN CORPUSCULAR HEMOGLOBIN 29.9 pg 25.6-32.2 (BEAKER) (test code = 751) MEAN CORPUSCULAR HEMOGLOBIN CONC 30.5 GM/DL 32.2-35.5 L (BEAKER) (test code = 752) RED CELL DISTRIBUTION WIDTH 17.6 % 11.7-14.4 H (BEAKER) (test code = 412) PLATELET COUNT (BEAKER) (test 224 K/CU MM 150-450 code = 756) MEAN PLATELET VOLUME (BEAKER) 10.4 fL 9.4-12.3 (test code = 754) NUCLEATED RED BLOOD CELLS 0 /100 WBC 0-0 (BEAKER) (test code = 413) NEUTROPHILS RELATIVE PERCENT 62 % (BEAKER) (test code = 429) LYMPHOCYTES RELATIVE PERCENT 21 % (BEAKER) (test code = 430) MONOCYTES RELATIVE PERCENT 10 % (BEAKER) (test code = 431) EOSINOPHILS RELATIVE PERCENT 6 % (BEAKER) (test code = 432) BASOPHILS RELATIVE PERCENT 1 % (BEAKER) (test code = 437) NEUTROPHILS ABSOLUTE COUNT 3.56 K/ L 1.56-6.13 (BEAKER) (test code = 670) LYMPHOCYTES ABSOLUTE COUNT 1.23 K/ L 1.18-3.74 (BEAKER) (test code = 414) MONOCYTES ABSOLUTE COUNT (BEAKER) 0.58 K/ L 0.24-0.36 H (test code = 415) EOSINOPHILS ABSOLUTE COUNT 0.32 K/ L 0.04-0.36 (BEAKER) (test code = 416) BASOPHILS ABSOLUTE COUNT (BEAKER) 0.05 K/ L 0.01-0.08 (test code = 417) IMMATURE GRANULOCYTES-RELATIVE 0.50 % 0.00-1.00 PERCENT (BEAKER) (test code = 2801) [id number] 21:33:18 Test Item Value Reference Range Interpretation Comments PARTIAL THROMBOPLASTIN TIME 51.5 seconds 22.5-36.0 H (BEAKER) (test code = 760) HEMOGLOBIN AND [id number] 18:35:26 Test Item Value Reference Range Interpretation Comments HEMOGLOBIN (BEAKER) (test code = 9.5 GM/DL 11.2-15.7 L 410) HEMATOCRIT (BEAKER) (test code = 30.9 % 34.1-44.9 L 411) [employer] Loader ID - [id number] 14:30:55 Test Item Value Reference Range Interpretation Comments PARTIAL THROMBOPLASTIN TIME 59.3 seconds 22.5-36.0 H (BEAKER) (test code = 760) [id number] 06:21:11 Test Item Value Reference Range Interpretation Comments PARTIAL THROMBOPLASTIN TIME 62.1 seconds 22.5-36.0 H (BEAKER) (test code = 760) PROTHROMBIN TIME/[id number] 03:22:14 Test Item Value Reference Range Interpretation Comments PROTIME (BEAKER) (test code = 14.8 seconds 11.9-14.2 H 759) INR (BEAKER) (test code = 370) 1.23 <=5.90 RECOMMENDED COUMADIN/WARFARIN INR THERAPY RANGESSTANDARD DOSE: 2.0 - 3.0 Includes: PROPHYLAXIS for venous thrombosis, systemic embolization; TREATMENT for venous thrombosis and/or pulmonary embolus.HIGH RISK: Target INR is 2.5-3.5 for patients with mechanical heart valves.[id number] 03:16:55 Test Item Value Reference Range Interpretation Comments MAGNESIUM (BEAKER) (test code = 2.2 mg/dL 1.6-2.6 627) [employer]er ID - [id number] 03:16:55 Test Item Value Reference Range Interpretation Comments PHOSPHORUS (BEAKER) (test code = 3.8 mg/dL 2.3-4.7 604) [employer] Loader ID - BSBASIC METABOLIC [id number] 03:16:54 Test Item Value Reference Range Interpretation Comments SODIUM (BEAKER) 139 meq/L 136-145 (test code = 381) POTASSIUM 4.4 meq/L 3.5-5.1 (BEAKER) (test code = 379) CHLORIDE (BEAKER) 105 meq/L 98-107 (test code = 382) CO2 (BEAKER) 26 meq/L 22-29 (test code = 355) BLOOD UREA 10 mg/dL 7-21 NITROGEN (BEAKER) (test code = 354) CREATININE 0.70 mg/dL 0.57-1.25 (BEAKER) (test code = 358) GLUCOSE RANDOM 102 mg/dL 70-105 (BEAKER) (test code = 652) CALCIUM (BEAKER) 8.9 mg/dL 8.4-10.2 (test code = 697) EGFR (BEAKER) 94 Interpretatio n of eGFR (test code = mL/min/1.73 values Stage De scription 1092) sq m Result G1 Norm al or high >=90 G2 Mildly decreased 60-89 G3a Mildl y to moderately 45-5 9 G3b Moderately to s everely 30-44 G4 Severl y decreased 15-29 G5 Kidney failure <15Reported eGF R is based on the CKD-EPI 2020 equation that d oes not use a race coefficientEsti mated GFR is not as accur ate as Creatinine Rose [place] in predicting glom erular filtration rate . Estimated GFR is not appl icable for dialysis patien ts [employer] Loader ID - BSCBC W/PLT COUNT & AUTO [id number] 02:57:48 Test Item Value Reference Range Interpretation Comments WHITE BLOOD CELL COUNT (BEAKER) 5.6 K/ L 3.5-10.5 (test code = 775) RED BLOOD CELL COUNT (BEAKER) 2.97 M/ L 3.93-5.22 L (test code = 761) HEMOGLOBIN (BEAKER) (test code = 9.0 GM/DL 11.2-15.7 L 410) HEMATOCRIT (BEAKER) (test code = 28.5 % 34.1-44.9 L 411) MEAN CORPUSCULAR VOLUME (BEAKER) 96 fL 79-95 H (test code = 753) MEAN CORPUSCULAR HEMOGLOBIN 30.3 pg 25.6-32.2 (BEAKER) (test code = 751) MEAN CORPUSCULAR HEMOGLOBIN CONC 31.6 GM/DL 32.2-35.5 L (BEAKER) (test code = 752) RED CELL DISTRIBUTION WIDTH 17.6 % 11.7-14.4 H (BEAKER) (test code = 412) PLATELET COUNT (BEAKER) (test 192 K/CU MM 150-450 code = 756) MEAN PLATELET VOLUME (BEAKER) 10.4 fL 9.4-12.3 (test code = 754) NUCLEATED RED BLOOD CELLS 0 /100 WBC 0-0 (BEAKER) (test code = 413) NEUTROPHILS RELATIVE PERCENT 64 % (BEAKER) (test code = 429) LYMPHOCYTES RELATIVE PERCENT 20 % (BEAKER) (test code = 430) MONOCYTES RELATIVE PERCENT 10 % (BEAKER) (test code = 431) EOSINOPHILS RELATIVE PERCENT 5 % (BEAKER) (test code = 432) BASOPHILS RELATIVE PERCENT 1 % (BEAKER) (test code = 437) NEUTROPHILS ABSOLUTE COUNT 3.55 K/ L 1.56-6.13 (BEAKER) (test code = 670) LYMPHOCYTES ABSOLUTE COUNT 1.12 K/ L 1.18-3.74 L (BEAKER) (test code = 414) MONOCYTES ABSOLUTE COUNT (BEAKER) 0.58 K/ L 0.24-0.36 H (test code = 415) EOSINOPHILS ABSOLUTE COUNT 0.27 K/ L 0.04-0.36 (BEAKER) (test code = 416) BASOPHILS ABSOLUTE COUNT (BEAKER) 0.03 K/ L 0.01-0.08 (test code = 417) IMMATURE GRANULOCYTES-RELATIVE 0.20 % 0.00-1.00 PERCENT (BEAKER) (test code = 2801) Prepare [id number] 23:54:00 Test Item Value Reference Range Interpretation Comments CROSSMATCH (test code = 2264) COMPATIBLE Unit ABO (test code = A Pos 7019999) UNIT NUMBER (test code = [id number] 934-0) Status (test code = 0714601) TX_TIMEINCHART Blood Bank Product (test code RED BLOOD CELLS = 2263) PRODUCT CODE (test code = [id number] 933-2) [facility] [id number] 23:54:00 Test Item Value Reference Range Interpretation Comments CROSSMATCH (test code = 2264) COMPATIBLE Unit ABO (test code = A Pos 7481968) UNIT NUMBER (test code = [id number] 934-0) Status (test code = 4797550) TX_TIMEINCHART Blood Bank Product (test code RED BLOOD CELLS = 2263) PRODUCT CODE (test code = [id number] 933-2) [facility] [id number] 23:54:00 Test Item Value Reference Range Interpretation Comments CROSSMATCH (test code = 2264) COMPATIBLE Unit ABO (test code = A Pos 2660495) UNIT NUMBER (test code = [id number] 934-0) Status (test code = 7420707) TX_TIMEINCHART Blood Bank Product (test code RED BLOOD CELLS = 2263) PRODUCT CODE (test code = [id number] 933-2) [facility] [id number] 23:54:00 Test Item Value Reference Range Interpretation Comments CROSSMATCH (test code = 2264) COMPATIBLE Unit ABO (test code = A Pos 5502452) UNIT NUMBER (test code = [id number] 934-0) Status (test code = 0301179) TX_TIMEINCHART Blood Bank Product (test code RED BLOOD CELLS = 2263) PRODUCT CODE (test code = [id number] 933-2) [facility] [id number] 23:54:00 Test Item Value Reference Range Interpretation Comments CROSSMATCH (test code = 2264) COMPATIBLE Unit ABO (test code = A Pos 7810658) UNIT NUMBER (test code = [id number] 934-0) Status (test code = 6617346) TX_TIMEINCHART Blood Bank Product (test code RED BLOOD CELLS = 2263) PRODUCT CODE (test code = [id number] 933-2) [facility] [id number] 21:46:53 Test Item Value Reference Range Interpretation Comments HEMOGLOBIN ([facility]) (test code = 9.0 GM/DL 11.2-15.7 L 410) HEMATOCRIT ([facility]) (test code = 30.5 % 34.1-44.9 L 411) [employer] Loader ID - [id number] Echo W/Doppler(CW/PW/Color)2022-05-21 18:02:14Ejection FractionSLE ECHO HEARTLAB [facility] Echo W/Doppler(CW/PW/Color)2022-05-21 18:02:14Ejection FractionSLEH ECHO [facility]ARTLAB [facility] Echo W/Doppler(CW/PW/Color) 2022-05-21 18:02:14Ejection FractionSLE ECHO [facility] Echo W/Doppler(CW/PW/Color)2022-05-21 18:02:14Ejection FractionSLEH ECHO [facility] Echo W/Doppler(CW/PW/Color)2022-05-21 18:02:14[facility] 15:07:17 Test Item Value Reference Range Interpretation Comments PARTIAL THROMBOPLASTIN TIME 68.4 seconds 22.5-36.0 H ([facility]) (test code = 760) PROTHROMBIN TIME/[id number] 15:05:56 Test Item Value Reference Range Interpretation Comments PROTIME ([facility]) (test code = 15.5 seconds 11.9-14.2 H 759) INR ([facility]) (test code = 370) 1.31 <=5.90 RECOMMENDED COUMADIN/WARFARIN INR THERAPY RANGESSTANDARD DOSE: 2.0 - 3.0 Includes: PROPHYLAXIS for venous thrombosis, systemic embolization; TREATMENT for venous thrombosis and/or pulmonary embolus.HIGH RISK: Target INR is 2.5-3.5 for patients with mechanical heart valves.TSH/FREE T4 IF [id number] 13:50:00 Test Item Value Reference Range Interpretation Comments THYROID STIMULATING HORMONE 1.746 uIU/mL 0.350-4.940 (AKER) (test code = 772) [employer] Loader ID - ARMAND LHEMOGLOBIN AND [id number] 13:00:10 Test Item Value Reference Range Interpretation Comments HEMOGLOBIN (BEAKER) (test code = 9.0 GM/DL 11.2-15.7 L 410) HEMATOCRIT (BEAKER) (test code = 29.3 % 34.1-44.9 L 411) [employer] Loader ID - [id number] 08:55:39 Test Item Value Reference Range Interpretation Comments PARTIAL THROMBOPLASTIN TIME 70.0 seconds 22.5-36.0 H (BEAKER) (test code = 760) [id number] 05:39:20 Test Item Value Reference Range Interpretation Comments PHOSPHORUS (BEAKER) (test code = 3.3 mg/dL 2.3-4.7 604) [employer] Loader ID - MARCOBASIC METABOLIC [id number] 05:39:19 Test Item Value Reference Range Interpretation Comments SODIUM (BEAKER) 138 meq/L 136-145 (test code = 381) POTASSIUM 4.4 meq/L 3.5-5.1 (BEAKER) (test code = 379) CHLORIDE (BEAKER) 107 meq/L 98-107 (test code = 382) CO2 (BEAKER) 25 meq/L 22-29 (test code = 355) BLOOD UREA 9 mg/dL 7-21 NITROGEN (BEAKER) (test code = 354) CREATININE 0.78 mg/dL 0.57-1.25 (BEAKER) (test code = 358) GLUCOSE RANDOM 119 mg/dL 70-105 H (BEAKER) (test code = 652) CALCIUM (BEAKER) 8.8 mg/dL 8.4-10.2 (test code = 697) EGFR (BEAKER) 83 Interpretatio n of eGFR (test code = mL/min/1.73 values Stage De scription 1092) sq m Result G1 Stephy l or high >=90 G2 Mildly decreased 60-89 G3a Mildl y to moderately 45-5 9 G3b Moderately to s everely 30-44 G4 Severl y decreased 15-29 G5 Kidney failure <15Reported eGF R is based on the CKD-EPI 2020 equation that d oes not use a race coefficientEsti mated GFR is not as accur ate as Creatinine Rose [place] in predicting glom erular filtration rate . Estimated GFR is not appl icable for dialysis patien ts [employer] Loader ID - [id number] 05:39:19 Test Item Value Reference Range Interpretation Comments MAGNESIUM (BEAKER) (test code = 1.6 mg/dL 1.6-2.6 627) [employer] Loader ID - MARCOCBC W/PLT COUNT & AUTO [id number] 05:18:48 Test Item Value Reference Range Interpretation Comments WHITE BLOOD CELL COUNT (BEAKER) 6.2 K/ L 3.5-10.5 (test code = 775) RED BLOOD CELL COUNT (BEAKER) 2.93 M/ L 3.93-5.22 L (test code = 761) HEMOGLOBIN (BEAKER) (test code = 8.8 GM/DL 11.2-15.7 L 410) HEMATOCRIT (BEAKER) (test code = 28.6 % 34.1-44.9 L 411) MEAN CORPUSCULAR VOLUME (BEAKER) 98 fL 79-95 H (test code = 753) MEAN CORPUSCULAR HEMOGLOBIN 30.0 pg 25.6-32.2 (BEAKER) (test code = 751) MEAN CORPUSCULAR HEMOGLOBIN CONC 30.8 GM/DL 32.2-35.5 L (BEAKER) (test code = 752) RED CELL DISTRIBUTION WIDTH 18.2 % 11.7-14.4 H (BEAKER) (test code = 412) PLATELET COUNT (BEAKER) (test 181 K/CU MM 150-450 code = 756) MEAN PLATELET VOLUME (BEAKER) 10.6 fL 9.4-12.3 (test code = 754) NUCLEATED RED BLOOD CELLS 0 /100 WBC 0-0 (BEAKER) (test code = 413) NEUTROPHILS RELATIVE PERCENT 74 % (BEAKER) (test code = 429) LYMPHOCYTES RELATIVE PERCENT 13 % (BEAKER) (test code = 430) MONOCYTES RELATIVE PERCENT 8 % (BEAKER) (test code = 431) EOSINOPHILS RELATIVE PERCENT 4 % (BEAKER) (test code = 432) BASOPHILS RELATIVE PERCENT 1 % (BEAKER) (test code = 437) NEUTROPHILS ABSOLUTE COUNT 4.57 K/ L 1.56-6.13 (BEAKER) (test code = 670) LYMPHOCYTES ABSOLUTE COUNT 0.82 K/ L 1.18-3.74 L (BEAKER) (test code = 414) MONOCYTES ABSOLUTE COUNT (BEAKER) 0.48 K/ L 0.24-0.36 H (test code = 415) EOSINOPHILS ABSOLUTE COUNT 0.26 K/ L 0.04-0.36 (BEAKER) (test code = 416) BASOPHILS ABSOLUTE COUNT (BEAKER) 0.04 K/ L 0.01-0.08 (test code = 417) IMMATURE GRANULOCYTES-RELATIVE 0.30 % 0.00-1.00 PERCENT (BEAKER) (test code = 2801) [id number] 01:34:38 Test Item Value Reference Range Interpretation Comments PARTIAL THROMBOPLASTIN TIME 94.3 seconds 22.5-36.0 H (BEAKER) (test code = 760) PROTHROMBIN TIME/[id number] 01:32:54 Test Item Value Reference Range Interpretation Comments PROTIME (BEAKER) (test code = 15.8 seconds 11.9-14.2 H 759) INR (BEAKER) (test code = 370) 1.35 <=5.90 RECOMMENDED COUMADIN/WARFARIN INR THERAPY RANGESSTANDARD DOSE: 2.0 - 3.0 Includes: PROPHYLAXIS for venous thrombosis, systemic embolization; TREATMENT for venous thrombosis and/or pulmonary embolus.HIGH RISK: Target INR is 2.5-3.5 for patients with mechanical heart valves.HEMOGLOBIN AND [id number] 20:48:52 Test Item Value Reference Range Interpretation Comments HEMOGLOBIN (BEAKER) (test code = 8.6 GM/DL 11.2-15.7 L 410) HEMATOCRIT (BEAKER) (test code = 27.9 % 34.1-44.9 L 411) [employer] ID - [id number] 17:34:13 Test Item Value Reference Range Interpretation Comments PARTIAL THROMBOPLASTIN TIME 53.7 seconds 22.5-36.0 H (BEAKER) (test code = 760) PROTHROMBIN TIME/[id number] 17:33:32 Test Item Value Reference Range Interpretation Comments PROTIME (BEAKER) (test code = 16.0 seconds 11.9-14.2 H 759) INR (BEAKER) (test code = 370) 1.37 <=5.90 RECOMMENDED COUMADIN/WARFARIN INR THERAPY RANGESSTANDARD DOSE: 2.0 - 3.0 Includes: PROPHYLAXIS for venous thrombosis, systemic embolization; TREATMENT for venous thrombosis and/or pulmonary embolus.HIGH RISK: Target INR is 2.5-3.5 for patients with mechanical heart valves.[id number] 13:24:26 Test Item Value Reference Range Interpretation Comments PARTIAL THROMBOPLASTIN TIME 70.7 seconds 22.5-36.0 H (BEAKER) (test code = 760) HEMOGLOBIN AND [id number] 13:10:45 Test Item Value Reference Range Interpretation Comments HEMOGLOBIN (BEAKER) (test code = 8.4 GM/DL 11.2-15.7 L 410) HEMATOCRIT (BEAKER) (test code = 27.0 % 34.1-44.9 L 411) [employer]er ID - [id number] 08:19:00 Test Item Value Reference Range Interpretation Comments CROSSMATCH (test code = 2264) COMPATIBLE Unit ABO (test code = A Pos [id number]) UNIT NUMBER (test code = [id number] 934-0) Status (test code = 3859611) ISSUED Blood Bank Product (test code RED BLOOD CELLS = 2263) PRODUCT CODE (test code = [id number] 933-2) [id number] 08:19:00 Test Item Value Reference Range Interpretation Comments CROSSMATCH (test code = 2264) COMPATIBLE Unit ABO (test code = A Pos [id number]) UNIT NUMBER (test code = [id number] 934-0) Status (test code = 6456734) ISSUED Blood Bank Product (test code RED BLOOD CELLS = 2263) PRODUCT CODE (test code = [id number] 933-2) [id number] 05:24:24 Test Item Value Reference Range Interpretation Comments PARTIAL THROMBOPLASTIN TIME 91.6 seconds 22.5-36.0 H (BEAKER) (test code = 760) [id number] 04:22:23 Test Item Value Reference Range Interpretation Comments MAGNESIUM (BEAKER) (test code = 1.8 mg/dL 1.6-2.6 627) [employer] ID - PIAYA [id number] 04:22:23 Test Item Value Reference Range Interpretation Comments PHOSPHORUS (BEAKER) (test code = 4.1 mg/dL 2.3-4.7 604) [employer] ID Alonso ACUNA LBASIC METABOLIC [id number] 04:22:22 Test Item Value Reference Range Interpretation Comments SODIUM (BEAKER) 140 meq/L 136-145 (test code = 381) POTASSIUM 4.1 meq/L 3.5-5.1 (BEAKER) (test code = 379) CHLORIDE (BEAKER) 109 meq/L 98-107 H (test code = 382) CO2 (BEAKER) 20 meq/L 22-29 L (test code = 355) BLOOD UREA 9 mg/dL 7-21 NITROGEN (BEAKER) (test code = 354) CREATININE 0.73 mg/dL 0.57-1.25 (BEAKER) (test code = 358) GLUCOSE RANDOM 97 mg/dL 70-105 (BEAKER) (test code = 652) CALCIUM (BEAKER) 8.2 mg/dL 8.4-10.2 L (test code = 697) EGFR (BEAKER) 90 Interpretatio n of eGFR (test code = mL/min/1.73 values Stage De scription 1092) sq m Result G1 Stephy l or high >=90 G2 Mildly decreased 60-89 G3a Mildl y to moderately 45-5 9 G3b Moderately to s everely 30-44 G4 Severl y decreased 15-29 G5 Kidney failure <15Reported eGF R is based on the CKD-EPI 2020 equation that d oes not use a race coefficientEsti mated GFR is not as accur ate as Creatinine [place] in predicting glom erular filtration rate . Estimated GFR is not appl icable for dialysis patien ts S[employer] Or Barg[employer] Loader ID - ARMAND LPROTHROMBIN TIME/[id number] 03:58:55 Test Item Value Reference Range Interpretation Comments PROTIME (BEAKER) (test code = 17.1 seconds 11.9-14.2 H 759) INR (BEAKER) (test code = 370) 1.43 <=5.90 RECOMMENDED COUMADIN/WARFARIN INR THERAPY RANGESSTANDARD DOSE: 2.0 - 3.0 Includes: PROPHYLAXIS for venous thrombosis, systemic embolization; TREATMENT for venous thrombosis and/or pulmonary embolus.HIGH RISK: Target INR is 2.5-3.5 for patients with mechanical heart valves.CBC W/PLT COUNT & AUTO [id number] 03:54:23 Test Item Value Reference Range Interpretation Comments WHITE BLOOD CELL COUNT (BEAKER) 4.5 K/ L 3.5-10.5 (test code = 775) RED BLOOD CELL COUNT (BEAKER) 2.29 M/ L 3.93-5.22 L (test code = 761) HEMOGLOBIN (BEAKER) (test code = 7.0 GM/DL 11.2-15.7 L 410) HEMATOCRIT (BEAKER) (test code = 23.0 % 34.1-44.9 L 411) MEAN CORPUSCULAR VOLUME (BEAKER) 100 fL 79-95 H (test code = 753) MEAN CORPUSCULAR HEMOGLOBIN 30.6 pg 25.6-32.2 (BEAKER) (test code = 751) MEAN CORPUSCULAR HEMOGLOBIN CONC 30.4 GM/DL 32.2-35.5 L (BEAKER) (test code = 752) RED CELL DISTRIBUTION WIDTH 17.2 % 11.7-14.4 H (BEAKER) (test code = 412) PLATELET COUNT (BEAKER) (test 156 K/CU MM 150-450 code = 756) MEAN PLATELET VOLUME (BEAKER) 10.6 fL 9.4-12.3 (test code = 754) NUCLEATED RED BLOOD CELLS 0 /100 WBC 0-0 (BEAKER) (test code = 413) NEUTROPHILS RELATIVE PERCENT 57 % (BEAKER) (test code = 429) LYMPHOCYTES RELATIVE PERCENT 27 % (BEAKER) (test code = 430) MONOCYTES RELATIVE PERCENT 12 % (BEAKER) (test code = 431) EOSINOPHILS RELATIVE PERCENT 3 % (BEAKER) (test code = 432) BASOPHILS RELATIVE PERCENT 1 % (BEAKER) (test code = 437) NEUTROPHILS ABSOLUTE COUNT 2.53 K/ L 1.56-6.13 (BEAKER) (test code = 670) LYMPHOCYTES ABSOLUTE COUNT 1.20 K/ L 1.18-3.74 (BEAKER) (test code = 414) MONOCYTES ABSOLUTE COUNT (BEAKER) 0.55 K/ L 0.24-0.36 H (test code = 415) EOSINOPHILS ABSOLUTE COUNT 0.15 K/ L 0.04-0.36 (BEAKER) (test code = 416) BASOPHILS ABSOLUTE COUNT (BEAKER) 0.03 K/ L 0.01-0.08 (test code = 417) IMMATURE GRANULOCYTES-RELATIVE 0.20 % 0.00-1.00 PERCENT (BEAKER) (test code = 2801) [id number] 23:23:33 Test Item Value Reference Range Interpretation Comments PARTIAL THROMBOPLASTIN TIME 63.2 seconds 22.5-36.0 H (BEAKER) (test code = 760) HEMOGLOBIN AND [id number] 21:26:00 Test Item Value Reference Range Interpretation Comments HEMOGLOBIN (BEAKER) (test code = 7.6 GM/DL 11.2-15.7 L 410) HEMATOCRIT (BEAKER) (test code = 24.8 % 34.1-44.9 L 411) S[employer] Loader ID - [id number] 17:30:54 Test Item Value Reference Range Interpretation Comments PARTIAL THROMBOPLASTIN TIME 37.0 seconds 22.5-36.0 H (BEAKER) (test code = 760) PROTHROMBIN [id number] 17:29:53 Test Item Value Reference Range Interpretation Comments PROTIME (BEAKER) (test code = 18.3 seconds 11.9-14.2 H 759) INR (BEAKER) (test code = 370) 1.62 <=5.90 RECOMMENDED COUMADIN/WARFARIN INR THERAPY RANGESSTANDARD DOSE: 2.0 - 3.0 Includes: PROPHYLAXIS for venous thrombosis, systemic embolization; TREATMENT for venous thrombosis and/or pulmonary embolus.HIGH RISK: Target INR is 2.5-3.5 for patients with mechanical heart valves.PROTHROMBIN TIME/[id number] 12:31:00 Test Item Value Reference Range Interpretation Comments PROTIME (BEAKER) (test code = 18.7 seconds 11.9-14.2 H 759) INR (BEAKER) (test code = 370) 1.61 <=5.90 RECOMMENDED COUMADIN/WARFARIN INR THERAPY RANGESSTANDARD DOSE: 2.0 - 3.0 Includes: PROPHYLAXIS for venous thrombosis, systemic embolization; TREATMENT for venous thrombosis and/or pulmonary embolus.HIGH RISK: Target INR is 2.5-3.5 for patients with mechanical heart valves.HEMOGLOBIN AND [id number] 12:24:20 Test Item Value Reference Range Interpretation Comments HEMOGLOBIN (BEAKER) (test code = 7.4 GM/DL 11.2-15.7 L 410) HEMATOCRIT (BEAKER) (test code = 23.7 % 34.1-44.9 L 411) [employer]arg[employer] Loader ID - [id number]-Glucose [id number] 05:40:23 Test Item Value Reference Range Interpretation Comments POC-Glucose Meter (test 78 mg/dL 70-110 : TE STED AT [facility] code = 1538) [address] [place] [address], 770 30: Ships Or Barges Loader/Techni valarie ID = [id number] for Yumi, James Lab Interpretation (test Normal code = 53110-9) [facility] [id number] 05:40:23 Test Item Value Reference Range Interpretation Comments POC-Glucose Meter (test 78 mg/dL 70-110 : TE STED AT [facility] code = 1538) [address] [place] [address], [facility] 30: S[employer] Or Barges Loader/Techni valarie ID = [id number] for Yumi, James Lab Interpretation (test Normal code = 43367-0) [facility] [id number] 05:40:23 Test Item Value Reference Range Interpretation Comments POC-Glucose Meter (test 78 mg/dL 70-110 : TE STED AT [facility] code = 1538) [address] [place] [address], 770 30: S[employer] Barges Loader/Techni valarie ID = [id number] for Yumi, James Lab Interpretation (test Normal code = 78832-6) [facility] [id number] 05:40:23 Test Item Value Reference Range Interpretation Comments POC-Glucose Meter (test 78 mg/dL 70-110 : TE STED AT [facility] code = 1538) [address] [place] [address], 770 30: S[employer] Barg[employer] Loader/Techni valarie ID = [id number] for Yumi, James Lab Interpretation (test Normal code = 53546-9) [facility] [id number] 05:40:23 Test Item Value Reference Range Interpretation Comments POC-Glucose Meter (test 78 mg/dL 70-110 : TE STED AT [facility] code = 1538) [address] [place] [address], 770 30: S[employer] Barges Loader/Techni valarie ID = [id number] for Yumi, James Lab Interpretation (test Normal code = 46694-0) [facility] [id number] 05:40:23 Test Item Value Reference Range Interpretation Comments POC-Glucose Meter (test 78 mg/dL 70-110 : TE STED AT [facility] code = 1538) [address] [facility], 770 30: S[employer] Barg[employer] Loader/Techni valarie ID = [id number] for James Eason Lab Interpretation (test Normal code = 08377-6) [facility]-Glucose [id number] 05:40:23 Test Item Value Reference Range Interpretation Comments POC-Glucose Meter (test 78 mg/dL 70-110 : TE STED AT [facility] code = 1538) [address] [facility], 770 30: S[employer]arg[employer] Loader/Techni valarie ID = [id number] for James Eason Lab Interpretation (test Normal code = 73600-1) [facility]-GLUCOSE [id number] 05:40:23 Test Item Value Reference Range Interpretation Comments POC-GLUCOSE METER 78 mg/dL 70-110 : TESTED A T [facility] 6720 (BEAKER) (test code = [facility], 1538) [address]: S[employer] Barg[employer] Loader/Techni valarie ID = [id number] for James Cisneros [id number] 04:23:09 Test Item Value Reference Range Interpretation Comments MAGNESIUM (BEAKER) (test code = 2.1 mg/dL 1.6-2.6 627) [employer] Loader ID - ARMAND [id number] 04:23:09 Test Item Value Reference Range Interpretation Comments PHOSPHORUS (BEAKER) (test code = 1.9 mg/dL 2.3-4.7 L 604) [employer] Loader ID - ARMAND LBASIC METABOLIC [id number] 04:23:08 Test Item Value Reference Range Interpretation Comments SODIUM (BEAKER) 139 meq/L 136-145 (test code = 381) POTASSIUM 4.3 meq/L 3.5-5.1 (BEAKER) (test code = 379) CHLORIDE (BEAKER) 108 meq/L 98-107 H (test code = 382) CO2 (BEAKER) 26 meq/L 22-29 (test code = 355) BLOOD UREA 9 mg/dL 7-21 NITROGEN (BEAKER) (test code = 354) CREATININE 0.76 mg/dL 0.57-1.25 (BEAKER) (test code = 358) GLUCOSE RANDOM 89 mg/dL 70-105 (BEAKER) (test code = 652) CALCIUM (BEAKER) 8.5 mg/dL 8.4-10.2 (test code = 697) EGFR (BEAKER) 85 Interpretatio n of eGFR (test code = mL/min/1.73 values Stage De scription 1092) sq m Result G1 Stephy l or high >=90 G2 Mildly decreased 60-89 G3a Mildl y to moderately 45-5 9 G3b Moderately to s everely 30-44 G4 Severl y decreased 15-29 G5 Kidney failure <15Reported eGF R is based on the CKD-EPI 2020 equation that d oes not use a race coefficientEsti mated GFR is not as accur ate as Creatinine Rose [place] in predicting glom erular filtration rate . Estimated GFR is not appl icable for dialysis patien ts [employer] Loader ID - PIAYA LPROTHROMBIN TIME/[id number] 04:07:24 Test Item Value Reference Range Interpretation Comments PROTIME (BEAKER) (test code = 22.9 seconds 11.9-14.2 H 759) INR (BEAKER) (test code = 370) 2.09 <=5.90 RECOMMENDED COUMADIN/WARFARIN INR THERAPY RANGESSTANDARD DOSE: 2.0 - 3.0 Includes: PROPHYLAXIS for venous thrombosis, systemic embolization; TREATMENT for venous thrombosis and/or pulmonary embolus.HIGH RISK: Target INR is 2.5-3.5 for patients with mechanical heart valves.CBC W/PLT COUNT & AUTO [id number] 04:00:27 Test Item Value Reference Range Interpretation Comments WHITE BLOOD CELL COUNT (BEAKER) 6.6 K/ L 3.5-10.5 (test code = 775) RED BLOOD CELL COUNT (BEAKER) 2.35 M/ L 3.93-5.22 L (test code = 761) HEMOGLOBIN (BEAKER) (test code = 7.2 GM/DL 11.2-15.7 L 410) HEMATOCRIT (BEAKER) (test code = 22.7 % 34.1-44.9 L 411) MEAN CORPUSCULAR VOLUME (BEAKER) 97 fL 79-95 H (test code = 753) MEAN CORPUSCULAR HEMOGLOBIN 30.6 pg 25.6-32.2 (BEAKER) (test code = 751) MEAN CORPUSCULAR HEMOGLOBIN CONC 31.7 GM/DL 32.2-35.5 L (BEAKER) (test code = 752) RED CELL DISTRIBUTION WIDTH 17.7 % 11.7-14.4 H (BEAKER) (test code = 412) PLATELET COUNT (BEAKER) (test 143 K/CU MM 150-450 L code = 756) MEAN PLATELET VOLUME (BEAKER) 10.8 fL 9.4-12.3 (test code = 754) NUCLEATED RED BLOOD CELLS 0 /100 WBC 0-0 (BEAKER) (test code = 413) NEUTROPHILS RELATIVE PERCENT 70 % (BEAKER) (test code = 429) LYMPHOCYTES RELATIVE PERCENT 15 % (BEAKER) (test code = 430) MONOCYTES RELATIVE PERCENT 13 % (BEAKER) (test code = 431) EOSINOPHILS RELATIVE PERCENT 1 % (BEAKER) (test code = 432) BASOPHILS RELATIVE PERCENT 1 % (BEAKER) (test code = 437) NEUTROPHILS ABSOLUTE COUNT 4.61 K/ L 1.56-6.13 (BEAKER) (test code = 670) LYMPHOCYTES ABSOLUTE COUNT 0.99 K/ L 1.18-3.74 L (BEAKER) (test code = 414) MONOCYTES ABSOLUTE COUNT (BEAKER) 0.84 K/ L 0.24-0.36 H (test code = 415) EOSINOPHILS ABSOLUTE COUNT 0.07 K/ L 0.04-0.36 (BEAKER) (test code = 416) BASOPHILS ABSOLUTE COUNT (BEAKER) 0.05 K/ L 0.01-0.08 (test code = 417) IMMATURE GRANULOCYTES-RELATIVE 0.30 % 0.00-1.00 PERCENT (BEAKER) (test code = 2801) POCT-GLUCOSE [id number] 23:14:02 Test Item Value Reference Range Interpretation Comments POC-GLUCOSE METER 86 mg/dL 70-110 : TESTED A T [facility] 6720 (BEAKER) (test code = [place] [place], 1538) [address]: S[employer] Barg[employer] Loader/Techni valarie ID = [id number] for Yoav herreraFatemeh goldeny BUN AND CREATININE [id number] 21:02:50 Test Item Value Reference Range Interpretation Comments BLOOD UREA 10 mg/dL 7-21 NITROGEN (BEAKER) (test code = 354) CREATININE 0.79 mg/dL 0.57-1.25 (BEAKER) (test code = 358) BUN/CREAT RATIO 13 For a normal individual on (BEAKER) (test a normal diet , the code = reference inter [place] for the [id number]) mass ratio rang es between 12:1 and 20:1 ( BUN in mg/dL/creatinin e in mg/dL) EGFR (BEAKER) 81 Interpretatio n of eGFR (test code = mL/min/1.73 values Stage De scription 1092) sq m Result G1 Stephy l or high >=90 G2 Mildly decreased 60-89 G3a Mildl y to moderately 45-5 9 G3b Moderately to s everely 30-44 G4 Severl y decreased 15-29 G5 Kidney failure <15Reported eGF R is based on the CKD-EPI 2020 equation that d oes not use a race coefficientEsti mated GFR is not as accur ate as Creatinine Rose [place] in predicting glom erular filtration rate . Estimated GFR is not appl icable for dialysis patien ts [employer] Loader ID - [id number] 21:02:49 Test Item Value Reference Range Interpretation Comments MAGNESIUM (BEAKER) (test code = 2.1 mg/dL 1.6-2.6 627) [employer] Loader ID - [id number] 21:02:49 Test Item Value Reference Range Interpretation Comments POTASSIUM (BEAKER) (test code = 3.7 meq/L 3.5-5.1 379) S[employer] Loader ID - BSHEMOGLOBIN AND [id number] 20:18:40 Test Item Value Reference Range Interpretation Comments HEMOGLOBIN (BEAKER) (test code = 7.5 GM/DL 11.2-15.7 L 410) HEMATOCRIT (BEAKER) (test code = 23.4 % 34.1-44.9 L 411) S[employer] Barg[employer] Loader ID - [id number], CTA [id number] 19:41:00Unlisted Reason for Exam - Click Yes and Enter Reason Below->YesUnlisted Reason for Exam->Looking for mesenteric ischemia. [facility] : 1955 Sex: FFINAL REPORT CLINICAL HISTORY: Mesenteric ischemia. Comparison:None. TECHNIQUE: CTA of the abdomen and pelvis with coronal and sagittal reformations. Precontrast and delayed imaging also performed. 3-D volumetric reformatted images were created at a dedicated workstation. This exam was performed according to our departmental dose-optimization program, which includes automated exposure control, adjustment of the mA and/or kV according to patient size and/or use of the iterative reconstruction technique. FINDINGS: LOWER THORAX: Unremarkable. HEPATOBILIARY: No focal hepatic lesions. Gallbladder continued gallstone without associated inflammatory changes. No biliary ductal dilatation.SPLEEN: No splenomegaly.PANCREAS: No focal masses or ductal dilatation. ADRENALS: No adrenal nodules.KIDNEYS/URETERS: No hydronephrosis, stones, or masses.PELVIC ORGANS/BLADDER: Excreted contrast present within the decompressed bladder from a prior exam. PERITONEUM/RETROPERITONEUM: There is small volume of free fluid containing layering blood products with scattered mesenteric edema. No organized collection. No free air. No retroperitoneal hematoma.LYMPH NODES: No lymphadenopathy.VASCULAR: There is no aortic dissection or aneurysm. No periaortic hematoma is present. Moderate atherosclerosis of the aorta and branching vessels. No branch vessel occlusion. The celiac axis and SMA are patent. There are single renal arteries bilaterally with marked atherosclerosis stenosis of the proximal left renal artery.The DOMINGO, aortic and iliac bifurcations are patent. No active extravasation. GI TRACT: There is a segment of small bowel in the lower mid abdomen with abnormally thickened tucker compatible with enteritis. There is no bowel obstruction. No pneumatosis intestinalis. Normal appendix. There is a moderate sliding hiatal hernia. There are a few noninflamed sigmoid diverticula of the sigmoid colon. BONES ANDSOFT TISSUES: Bones are osteopenic. There is a chronic appearing compression deformity of L1 with approximately 50% height loss and retropulsion of the superior endplate of 0.7 cm. Severe degenerative changes of the right hip with joint space loss and subchondral cystic changes. Moderate rotoscoliosis. Soft tissues are unremarkable. IMPRESSION: 1. Moderate atherosclerosis of the aorta and branching vessels without aneurysmal dilatation or branch vessel occlusion. There is marked atherosclerosis stenosis of the proximal left mid renal artery. 2. There is a small volume of hemoperitoneum. No discretesource of hemorrhage identified. 3. The abnormal wall thickening of the small bowel within the lower abdomen is compatible with enteritis with infectious, inflammatory, and ischemic etiologies considered. 4. Cholelithiasis. 5. Mild sigmoid diverticulosis. 6. Chronic appearing compression deformity of L1 with 0.7 cm retropulsion of the superior endplate. No evidence of high-grade spinal canal stenosisgiven lack of intrathecal contrast. The findings were discussed with nurse Robles on 05/18/2022 at the time of dictation who will relay them to the physician. Signed: Ayden Goff MDReport Verified Date/Time: 05/18/2022 19:41:16 POCT-GLUCOSE [id number] 19:08:28 Test Item Value Reference Range Interpretation Comments POC-GLUCOSE METER 91 mg/dL 70-110 : TESTED A T [facility] 6720 ([facility]) (test code = [facility], 1538) [address]: S[employer] Or Barg[employer] Loader/Techni valarie ID = [id number] for Scarlet Maravilla HIGH SENSITIVITY TROPONIN [id number] 16:22:26 Test Item Value Reference Range Interpretation Comments HIGH SENSITIVITY TROPONIN I (test 9 pg/ml <=17 code = 5919796) S[employer] B[employer] Loader ID - BSThe SOLUTION DESIGN AND ANALYSIS MANAGER STAT High Sensitivity Troponin-I results should be used in conjunctionwith other diagnostic information such as ECG, clinical observations and information, and patient symptoms to aid in the diagnosis of [place].Urinalysis w/Microscopic + Reflex to [id number] 16:12:56 Test Item Value Reference Range Interpretation Comments Color, UA (test code Yellow = 5778-6) Clarity, UA (test Hazy code = 5767-9) Specific Franklin, UA 1.045 1.001-1.035 H (test code = 5811-5) pH, UA (test code = 6.5 5.0-8.0 5803-2) Protein, UA (test 20 mg/dL Negative A code = 39421-8) Glucose, UA (test Negative Negative code = 365) Ketones, UA (test Negative Negative code = 2514-8) Bilirubin, UA (test Negative Negative code = 94855-4) Blood, UA (test code Moderate Negative A = 75590-2) Nitrite, UA (test Negative Negative code = 5802-4) Leukocytes, UA (test Large Negative A code = 5799-2) Urobilinogen, UA 0.2 0.2-1.0 (test code = 81896-3) RBC, UA (test code = 34 See_Comment [Autom ated 88850-7) message] The system which generated this result transmit bandar reference range : /HPF. The reference range was not used to interpret this result as normal/abnormal . WBC, UA (test code = 212 See_Comment [Autom ated 5821-4) message] The system which generated this result transmit bandar reference range : /HPF. The reference range was not used to interpret this result as normal/abnormal . Bacteria, UA (test Few code = 15802-1) Squam Epithel, UA <1 See_Comment [Automate d (test code = 98714-1) messag e] The system which generated this result transmit bandar reference range : /HPF. The reference range was not used to interpret this result as normal/abnormal . Specimen Source (test code = 2795) ROBERT (test code = ROBERT) S[employer] Barg[employer] Loader ID - [auto]S[employer] Or Barges Loader ID - tech Lab Interpretation Abnormal (test code = 59240-0) [facility] Culture 2022-05-18 16:12:56 Test Item Value Reference Range Interpretation Comments Color, UA (test code Yellow = 5778-6) Clarity, UA (test Hazy code = 5767-9) Specific [place], UA 1.045 1.001-1.035 H (test code = 5811-5) pH, UA (test code = 6.5 5.0-8.0 5803-2) Protein, UA (test 20 mg/dL Negative A code = 46821-8) Glucose, UA (test Negative Negative code = 365) Ketones, UA (test Negative Negative code = 2514-8) Bilirubin, UA (test Negative Negative code = 28212-2) Blood, UA (test code Moderate Negative A = 32860-4) Nitrite, UA (test Negative Negative code = 5802-4) Leukocytes, UA (test Large Negative A code = 5799-2) Urobilinogen, UA 0.2 0.2-1.0 (test code = 93330-6) RBC, UA (test code = 34 See_Comment [Autom ated 38493-7) message] The system which generated this result transmit bandar reference range : /HPF. The reference range was not used to interpret this result as normal/abnormal . WBC, UA (test code = 212 See_Comment [Autom ated 5821-4) message] The system which generated this result transmit bandar reference range : /HPF. The reference range was not used to interpret this result as normal/abnormal . Bacteria, UA (test Few code = 67656-4) Squam Epithel, UA <1 See_Comment [Automate d (test code = 93980-3) messag e] The system which generated this result transmit bandar reference range : /HPF. The reference range was not used to interpret this result as normal/abnormal . Specimen Source (test code = 2795) ROBERT (test code = ROBERT) S[employer] B[employer] Loader ID - [auto]S[employer] Or Barges Loader ID - tech Lab Interpretation Abnormal (test code = 40887-2) [facility] Reflex to Culture 2022-05-18 16:12:56 Test Item Value Reference Range Interpretation Comments Color, UA (test code Yellow = 5778-6) Clarity, UA (test Hazy code = 5767-9) Specific [place], UA 1.045 1.001-1.035 H (test code = 5811-5) pH, UA (test code = 6.5 5.0-8.0 5803-2) Protein, UA (test 20 mg/dL Negative A code = 44230-1) Glucose, UA (test Negative Negative code = 365) Ketones, UA (test Negative Negative code = 2514-8) Bilirubin, UA (test Negative Negative code = 82415-2) Blood, UA (test code Moderate Negative A = 92742-8) Nitrite, UA (test Negative Negative code = 5802-4) Leukocytes, UA (test Large Negative A code = 5799-2) Urobilinogen, UA 0.2 0.2-1.0 (test code = 45332-8) RBC, UA (test code = 34 See_Comment [Autom ated 04251-8) message] The system which generated this result transmit bandar reference range : /HPF. The reference range was not used to interpret this result as normal/abnormal . WBC, UA (test code = 212 See_Comment [Autom ated 5821-4) message] The system which generated this result transmit bandar reference range : /HPF. The reference range was not used to interpret this result as normal/abnormal . Bacteria, UA (test Few code = 82647-7) Squam Epithel, UA <1 See_Comment [Automate d (test code = 24092-1) messag e] The system which generated this result transmit bandar reference range : /HPF. The reference range was not used to interpret this result as normal/abnormal . Specimen Source (test code = 2795) ROBERT (test code = ROBERT) S[employer] B[employer] Loader ID - [auto]S[employer] Or Barges Loader ID - tech Lab Interpretation Abnormal (test code = 89152-7) [facility] Reflex to Culture 2022-05-18 16:12:56 Test Item Value Reference Range Interpretation Comments Color, UA (test code Yellow = 5778-6) Clarity, UA (test Hazy code = 5767-9) Specific [place], UA 1.045 1.001-1.035 H (test code = 5811-5) pH, UA (test code = 6.5 5.0-8.0 5803-2) Protein, UA (test 20 mg/dL Negative A code = 20006-7) Glucose, UA (test Negative Negative code = 365) Ketones, UA (test Negative Negative code = 2514-8) Bilirubin, UA (test Negative Negative code = 59689-3) Blood, UA (test code Moderate Negative A = 52380-0) Nitrite, UA (test Negative Negative code = 5802-4) Leukocytes, UA (test Large Negative A code = 5799-2) Urobilinogen, UA 0.2 0.2-1.0 (test code = 06812-9) RBC, UA (test code = 34 See_Comment [Autom ated 31148-2) message] The system which generated this result transmit bandar reference range : /HPF. The reference range was not used to interpret this result as normal/abnormal . WBC, UA (test code = 212 See_Comment [Autom ated 5821-4) message] The system which generated this result transmit bandar reference range : /HPF. The reference range was not used to interpret this result as normal/abnormal . Bacteria, UA (test Few code = 38364-8) Squam Epithel, UA <1 See_Comment [Automate d (test code = 45239-7) messag e] The system which generated this result transmit bandar reference range : /HPF. The reference range was not used to interpret this result as normal/abnormal . Specimen Source (test code = 2795) ROBERT (test code = ROBERT) S[employer] B[employer] Loader ID - [auto]S[employer] Or Barges Loader ID - tech Lab Interpretation Abnormal (test code = 58884-7) [facility] Reflex to Culture 2022-05-18 16:12:56 Test Item Value Reference Range Interpretation Comments Color, UA (test code Yellow = 5778-6) Clarity, UA (test Hazy code = 5767-9) Specific [place], UA 1.045 1.001-1.035 H (test code = 5811-5) pH, UA (test code = 6.5 5.0-8.0 5803-2) Protein, UA (test 20 mg/dL Negative A code = 33221-7) Glucose, UA (test Negative Negative code = 365) Ketones, UA (test Negative Negative code = 2514-8) Bilirubin, UA (test Negative Negative code = 70769-8) Blood, UA (test code Moderate Negative A = 05087-9) Nitrite, UA (test Negative Negative code = 5802-4) Leukocytes, UA (test Large Negative A code = 5799-2) Urobilinogen, UA 0.2 0.2-1.0 (test code = 31476-1) RBC, UA (test code = 34 See_Comment [Autom ated 35895-2) message] The system which generated this result transmit bandar reference range : /HPF. The reference range was not used to interpret this result as normal/abnormal . WBC, UA (test code = 212 See_Comment [Autom ated 5821-4) message] The system which generated this result transmit bandar reference range : /HPF. The reference range was not used to interpret this result as normal/abnormal . Bacteria, UA (test Few code = 51159-3) Squam Epithel, UA <1 See_Comment [Automate d (test code = 77159-1) messag e] The system which generated this result transmit bandar reference range : /HPF. The reference range was not used to interpret this result as normal/abnormal . Specimen Source (test code = 2795) ROBERT (test code = ROBERT) [employer] ID - [auto][employer] Loader ID - tech Lab Interpretation Abnormal (test code = 55363-8) [facility]18 16:12:56 Test Item Value Reference Range Interpretation Comments Color, UA (test code Yellow = 5778-6) Clarity, UA (test Hazy code = 5767-9) Specific Franklin, UA 1.045 1.001-1.035 H (test code = 5811-5) pH, UA (test code = 6.5 5.0-8.0 5803-2) Protein, UA (test 20 mg/dL Negative A code = 61536-2) Glucose, UA (test Negative Negative code = 365) Ketones, UA (test Negative Negative code = 2514-8) Bilirubin, UA (test Negative Negative code = 20284-8) Blood, UA (test code Moderate Negative A = 41171-6) Nitrite, UA (test Negative Negative code = 5802-4) Leukocytes, UA (test Large Negative A code = 5799-2) Urobilinogen, UA 0.2 0.2-1.0 (test code = 26165-0) RBC, UA (test code = 34 See_Comment [Autom ated 15202-2) message] The system which generated this result transmit bandar reference range : /HPF. The reference range was not used to interpret this result as normal/abnormal . WBC, UA (test code = 212 See_Comment [Autom ated 5821-4) message] The system which generated this result transmit bandar reference range : /HPF. The reference range was not used to interpret this result as normal/abnormal . Bacteria, UA (test Few code = 52788-7) Squam Epithel, UA See_Comment [Automate d (test code = 87114-8) messag e] The system which generated this result transmit bandar reference range : /HPF. The reference range was not used to interpret this result as normal/abnormal . Specimen Source (test code = 2795) ROBERT (test code = ROBERT) [employer] ID - [auto][employer] Loader ID - tech Lab Interpretation Abnormal (test code = 99759-3) [facility] Culture 2022-05-18 16:12:56 Test Item Value Reference Range Interpretation Comments Color, UA (test code Yellow = 5778-6) Clarity, UA (test Hazy code = 5767-9) Specific Franklin, UA 1.045 1.001-1.035 H (test code = 5811-5) pH, UA (test code = 6.5 5.0-8.0 5803-2) Protein, UA (test 20 mg/dL Negative A code = 87616-6) Glucose, UA (test Negative Negative code = 365) Ketones, UA (test Negative Negative code = 2514-8) Bilirubin, UA (test Negative Negative code = 84418-7) Blood, UA (test code Moderate Negative A = 65811-8) Nitrite, UA (test Negative Negative code = 5802-4) Leukocytes, UA (test Large Negative A code = 5799-2) Urobilinogen, UA 0.2 0.2-1.0 (test code = 58104-0) RBC, UA (test code = 34 See_Comment [Autom ated 98768-2) message] The system which generated this result transmit bandar reference range : /HPF. The reference range was not used to interpret this result as normal/abnormal . WBC, UA (test code = 212 See_Comment [Autom ated 5821-4) message] The system which generated this result transmit bandar reference range : /HPF. The reference range was not used to interpret this result as normal/abnormal . Bacteria, UA (test Few code = 01830-8) Squam Epithel, UA See_Comment [Automate d (test code = 57491-7) messag e] The system which generated this result transmit bandar reference range : /HPF. The reference range was not used to interpret this result as normal/abnormal . Specimen Source (test code = 2795) ROBERT (test code = ROBERT) [employer] ID - [auto][employer] Loader ID - tech Lab Interpretation Abnormal (test code = 77067-8) [facility] [id number] 16:12:56 Test Item Value Reference Range Interpretation Comments COLOR (BEAKER) (test code = 470) Yellow CLARITY (BEAKER) (test code = 469) Hazy SPECIFIC GRAVITY UA (BEAKER) (test 1.045 1.001-1.035 H code = 468) PH UA (BEAKER) (test code = 467) 6.5 5.0-8.0 PROTEIN UA (BEAKER) (test code = 20 mg/dL Negative A 464) GLUCOSE UA (BEAKER) (test code = Negative Negative 365) KETONES UA (BEAKER) (test code = Negative Negative 371) BILIRUBIN UA (BEAKER) (test code = Negative Negative 462) BLOOD UA (BEAKER) (test code = 461) Moderate Negative A NITRITE UA (BEAKER) (test code = Negative Negative 465) LEUKOCYTE ESTERASE UA (BEAKER) (test Large Negative A code = 466) UROBILINOGEN UA (BEAKER) (test code 0.2 0.2-1.0 = 463) RBC UA (BEAKER) (test code = 519) 34 /HPF WBC UA (BEAKER) (test code = 520) 212 /HPF BACTERIA (BEAKER) (test code = 517) Few SQUAMOUS EPITHELIAL (BEAKER) (test < /HPF code = 516) SOURCE(BEAKER) (test code = 2795) [employer] ID - [auto][employer] Loader ID - techPROTHROMBIN [id number] 16:02:01 Test Item Value Reference Range Interpretation Comments PROTIME (BEAKER) (test code = 25.8 seconds 11.9-14.2 H 759) INR (BEAKER) (test code = 370) 2.54 <=5.90 RECOMMENDED COUMADIN/WARFARIN INR THERAPY RANGESSTANDARD DOSE: 2.0 - 3.0 Includes: PROPHYLAXIS for venous thrombosis, systemic embolization; TREATMENT for venous thrombosis and/or pulmonary embolus.HIGH RISK: Target INR is 2.5-3.5 for patients with mechanical heart valves.CALCIUM, [id number] 13:31:38 Test Item Value Reference Range Interpretation Comments CALCIUM IONIZED (BEAKER) (test 1.04 mmol/L 1.12-1.27 L code = 698) PH, BLOOD (BEAKER) (test code = 7.41 1810) CBC (HEMOGRAM ONLY)2022-05-18 13:17:31 Test Item Value Reference Range Interpretation Comments WHITE BLOOD CELL COUNT (BEAKER) 9.5 K/ L 3.5-10.5 (test code = 775) RED BLOOD CELL COUNT (BEAKER) 2.65 M/ L 3.93-5.22 L (test code = 761) HEMOGLOBIN (BEAKER) (test code = 8.1 GM/DL 11.2-15.7 L 410) HEMATOCRIT (BEAKER) (test code = 25.5 % 34.1-44.9 L 411) MEAN CORPUSCULAR VOLUME (BEAKER) 96 fL 79-95 H (test code = 753) MEAN CORPUSCULAR HEMOGLOBIN 30.6 pg 25.6-32.2 (BEAKER) (test code = 751) MEAN CORPUSCULAR HEMOGLOBIN CONC 31.8 GM/DL 32.2-35.5 L (BEAKER) (test code = 752) RED CELL DISTRIBUTION WIDTH 16.5 % 11.7-14.4 H (BEAKER) (test code = 412) PLATELET COUNT (BEAKER) (test 151 K/CU MM 150-450 code = 756) MEAN PLATELET VOLUME (BEAKER) 10.7 fL 9.4-12.3 (test code = 754) NUCLEATED RED BLOOD CELLS 0 /100 WBC 0-0 (BEAKER) (test code = 413) POCT-GLUCOSE [id number] 13:07:25 Test Item Value Reference Range Interpretation Comments POC-GLUCOSE METER 81 mg/dL 70-110 : TESTED A T [facility] 6720 (BEAKER) (test code = JOSELITO BURRELL ME, 1538) 20480: [employer] Loader/Techni valarie ID = [id number] for Scarlet Maravilla B-TYPE NATRIURETIC FACTOR (BNP)2022-05-18 11:38:06 Test Item Value Reference Range Interpretation Comments B-TYPE NATRIURETIC PEPTIDE (BEAKER) 97 pg/mL 0-100 (test code = 700) [employer]er ID - FANTASMA [id number] 11:34:39 Test Item Value Reference Range Interpretation Comments FIBRINOGEN LEVEL (BEAKER) (test 440 mg/dl 225-434 H code = 658) [id number] 11:32:28 Test Item Value Reference Range Interpretation Comments LIPASE (BEAKER) (test code = 749) 13 U/L 8-78 [employer] Loader ID - FANTASMA BCOMPREHENSIVE METABOLIC [id number] 11:32:27 Test Item Value Reference Range Interpretation Comments TOTAL PROTEIN 5.6 gm/dL 6.0-8.3 L (BEAKER) (test code = 770) ALBUMIN (BEAKER) 3.3 g/dL 3.5-5.0 L (test code = 1145) ALKALINE 59 U/L 40-150 PHOSPHATASE (BEAKER) (test code = 346) BILIRUBIN TOTAL 1.5 mg/dL 0.2-1.2 H (BEAKER) (test code = 377) SODIUM (BEAKER) 141 meq/L 136-145 (test code = 381) POTASSIUM (BEAKER) 3.6 meq/L 3.5-5.1 (test code = 379) CHLORIDE (BEAKER) 106 meq/L 98-107 (test code = 382) CO2 (BEAKER) (test 29 meq/L 22-29 code = 355) BLOOD UREA 11 mg/dL 7-21 NITROGEN (BEAKER) (test code = 354) CREATININE 0.84 mg/dL 0.57-1.25 (BEAKER) (test code = 358) GLUCOSE RANDOM 100 mg/dL 70-105 (BEAKER) (test code = 652) CALCIUM (BEAKER) 8.3 mg/dL 8.4-10.2 L (test code = 697) AST (SGOT) 16 U/L 5-34 (BEAKER) (test code = 353) ALT (SGPT) 10 U/L 6-55 (BEAKER) (test code = 347) EGFR (BEAKER) 76 Interpretatio n of eGFR (test code = 1092) mL/min/1.[address] age Description sq m Result G1 Stephy l or high >=90 G2 Mildly decreased 60-89 G3a Mildl y to moderately 45-5 9 G3b Moderately to s everely 30-44 G4 Severl y decreased 15-29 G5 Kidne y failure <15Reported eGF R is based on the CKD-EPI 2020 equation that d oes not use a race coefficientEsti mated GFR is not as accur ate as Creatinine [place] in predicting glom erular filtration rate . Estimated GFR is not appl icable for dialysis patien ts [employer] Loader ID - FANTASMA [id number] 11:32:27 Test Item Value Reference Range Interpretation Comments MAGNESIUM (BEAKER) (test code = 1.7 mg/dL 1.6-2.6 627) [employer] Loader ID - FANTASMA [id number] 11:32:27 Test Item Value Reference Range Interpretation Comments PHOSPHORUS (BEAKER) (test code = 2.9 mg/dL 2.3-4.7 604) [employer] Loader ID - FANTASMA [id number] 11:21:21 Test Item Value Reference Range Interpretation Comments PROTIME (BEAKER) (test code = 29.0 seconds 11.9-14.2 H 759) INR (BEAKER) (test code = 370) 2.95 <=5.90 PARTIAL THROMBOPLASTIN TIME 48.2 seconds 22.5-36.0 H (BEAKER) (test code = 760) RECOMMENDED COUMADIN/WARFARIN INR THERAPY RANGESSTANDARD DOSE: 2.0 - 3.0 Includes: PROPHYLAXIS for venous thrombosis, systemic embolization; TREATMENT for venous thrombosis and/or pulmonary embolus.HIGH RISK: Target INR is 2.5-3.5 for patients with mechanical heart valves.LACTIC ACID, [id number] 11:20:59 Test Item Value Reference Range Interpretation Comments LACTATE BLOOD VENOUS (2) (BEAKER) 1.40 mmol/L 0.50-2.20 (test code = 2872) [employer] Loader ID - FANTASMA Luke"
[2022-08-20] MEDS ORDERED: FAMOTIDINE 20 MG/2 ML VIAL IV ONE (22:39)
[2022-08-20] MEDS ORDERED: NA CHLORIDE 0.9% 1,000 ML ONE (22:39)
[2022-08-20] MEDS ORDERED: ONDANSETRON 4 MG/2 ML VIAL ONE (22:39)
[2022-08-20 23:20] LABS: Absolute Lymphocytes (CBC) 1.2 K/uL (0.7-4.9); Hematocrit 31.3 % (36.0-45.0); Lymphocytes % 16.3 % (15.3-44.8); MPV 8.9 fL (7.6-11.3)
[2022-08-20 23:22] LABS: Protime INR 3.63
[2022-08-20 23:27] LABS: Specific Gravity 1.005 (1.005-1.030); Urine Bacteria <20 /HPF (<20); Urine Bilirubin NEGATIVE (Negative); Urine Blood 2+ (Negative); Urine Clarity Clear (Clear); Urine Color Colorless (Yellow); Urine Glucose NEGATIVE (Negative); Urine Mucus Slight /HPF (None Seen); Urine Protein NEGATIVE (Negative); Urine RBC <5 /HPF (None Seen); Urine Urobilinogen Normal (Normal)
[2022-08-20 23:44] LABS: Albumin 3.7 g/dL (3.4-5.0); Bilirubin Total 0.4 mg/dL (0.2-1.0); Potassium 3.6 mEq/L (3.5-5.1); Protein, Total 7.2 g/dL (6.4-8.2); Troponin High Sensitivity 10.4 pg/mL (<58.9)
[2022-08-21] MEDS ORDERED: FENTANYL CITR 100 MCG/2 ML ONE (01:56)
[2022-08-21] MEDS ORDERED: PROMETHAZINE 25 MG TABLET ONE (01:56)
--- NOTE | 2022-08-21 02:15 | ER ---
Nurse's Notes [facility] Name: Michelle Saavedra Age: 67 yrs Sex: Female : 1955 Arrival Date: 08/20/2022 Time: 21:39 Bed 7 Private MD: Diagnosis: Atypical chest pain, symptomatic bradycardia, dizziness Presentation: 08/20 22:07 Chief complaint: Patient states: I was about to go to bed and i felt real sick with kd3 dizziness and nausea. I feel real weak. Coronavirus screen: Vaccine status: Patient reports being unvaccinated. Ebola Screen: No symptoms or risks identified at this time. Initial Sepsis Screen: Does the patient meet any 2 criteria? No. Patient's initial sepsis screen is negative. Does the patient have a suspected source of infection? No. Patient's initial sepsis screen is negative. Risk Assessment: Do you want to hurt yourself or someone else? Patient reports no desire to harm self or others. Onset of symptoms was August 20, 2022. 22:07 Method Of Arrival: Ambulatory kd3 22:07 Acuity: JAKUB 3 kd3 Triage Assessment: 22:09 General: Appears uncomfortable, ill, slender, Behavior is calm, cooperative. Pain: kd3 Denies pain. Neuro: Level of Consciousness is awake, alert, obeys commands, Oriented to person, place, time, situation. Respiratory: Airway is patent Trachea midline Respiratory effort is even, unlabored, Respiratory pattern is regular, symmetrical. Historical: - Allergies: 22:09 Morphine; kd3 - Home Meds: 22:09 Coumadin 1 mg Oral tab 1 tab once daily [Active]; kd3 - PMHx: 22:09 Atrial fibrillation; Hypercholesterolemia; mechanical valve; Hypertensive disorder; kd3 - Immunization history:: Adult Immunizations up to date. - Social history:: Smoking status: Patient denies any tobacco usage or history of. - Family history:: not pertinent. Screenin:08 [facility] ED Fall Risk Assessment (Adult) History of falling in the last 3 months, lg3 including since admission No falls in past 3 months (0 pts). Abuse screen: Denies threats or abuse. Denies injuries from another. Nutritional screening: No deficits noted. Tuberculosis screening: No symptoms or risk factors identified. Assessment: 23:08 General: Appears in no apparent distress. comfortable, Behavior is cooperative, fussy. lg3 Pain: Complains of pain in abdomen, all over. Neuro: No deficits noted. Whitney Agitation-Sedation Scale (RASS): 0 - Alert and Calm Level of Consciousness is awake, alert, obeys commands, Oriented to person, place, time, situation. Cardiovascular: No deficits noted. Capillary refill < 3 seconds Clubbing of nail beds is absent JVD is absent Patient's skin is warm and dry. Respiratory: No deficits noted. Airway is patent Respiratory effort is even, unlabored, Respiratory pattern is regular, symmetrical. GI: No deficits noted. Abdomen is flat, non-distended, Bowel sounds present X 4 quads. Reports lower abdominal pain, upper abdominal pain, nausea. : No deficits noted. No signs and/or symptoms were reported regarding the genitourinary system. EENT: No deficits noted. No signs and/or symptoms were reported regarding the EENT system. Derm: No deficits noted. No signs and/or symptoms reported regarding the dermatologic system. Skin is intact, is thin, Skin is dry, Skin is normal, Skin temperature is warm. Musculoskeletal: No deficits noted. Circulation, motion, and sensation intact. Range of motion: intact in all extremities. 08/21 00:13 Reassessment: Patient appears in no apparent distress at this time. No changes from lg3 previously documented assessment. Patient and/or family updated on plan of care and expected duration. Pain level reassessed. Patient is alert, oriented x 3, equal unlabored respirations, skin warm/dry/pink. 01:53 Reassessment: Patient appears in no apparent distress at this time. No changes from lg3 previously documented assessment. Patient and/or family updated on plan of care and expected duration. Pain level reassessed. Patient is alert, oriented x 3, equal unlabored respirations, skin warm/dry/pink. Patient states symptoms have not improved. 02:48 General: per desk staff, nurse not avaliable to take report due to recently receiving lg3 another patient and she will call back. . Vital Signs: 08/20 22:07 BP 153 / 63; Pulse 72; Resp 19; Temp 98(TE); Pulse Ox 100% ; Weight 45.36 kg; Height 5 kd3 ft. 3 in. ; 23:08 BP 149 / 58; Pulse 64; Resp 18 S; Pulse Ox 100% on R/A; lg3 08/21 00:46 BP 144 / 61; Pulse 63; Resp 17 S; Pulse Ox 100% on R/A; lg3 01:53 BP 132 / 56; Pulse 71; Resp 18 S; Pulse Ox 100% on R/A; lg3 08/20 22:07 Body Mass Index 17.71 (45.36 kg, 160.02 cm) kd3 ED Course: 08/20 21:43 Patient arrived in ED. jj6 21:47 Juan Yoder MD is Attending Physician. sp4 22:09 Triage completed. kd3 22:09 Arm band placed on left wrist. kd3 23:04 Maryam Shafer, RN is Primary Nurse. lg3 23:04 Inserted saline lock: 22 gauge in left antecubital area, using aseptic technique. Blood lg3 collected. 23:05 Ptt, Activated Sent. lg3 23:05 PT-INR Sent. lg3 23:05 BNP Sent. lg3 23:05 Troponin HS Sent. lg3 23:05 CBC with Diff Sent. lg3 23:05 CMP Sent. lg3 23:05 Lipase Sent. lg3 23:05 Urinalysis w/ reflexes Sent. lg3 23:08 Patient has correct armband on for positive identification. Placed in gown. Bed in low lg3 position. Call light in reach. Side rails up X 1. Client placed on continuous cardiac and pulse oximetry monitoring. NIBP monitoring applied. Door closed. Noise minimized. Warm blanket given. 08/21 02:14 James Hartman MD is Hospitalizing Provider. sp4 02:50 No provider procedures requiring assistance completed. Patient admitted, IV remains in lg3 place. intact, No redness/swelling at site. Administered Medications: 08/20 23:05 Drug: Famotidine IVP 20 mg Route: IVP; Site: left antecubital; lg3 23:05 Drug: Ondansetron IVP 4 mg Route: IVP; Site: left antecubital; lg3 23:05 Drug: NS 0.9% IV 1000 ml Route: IV; Rate: 125 ml/hr; Site: left antecubital; lg3 08/21 01:52 Drug: Promethazine PO 25 mg Route: PO; lg3 01:53 Drug: fentaNYL (PF) IVP 50 mcg Route: IVP; Site: left antecubital; lg3 Medication: 02:50 VIS not applicable for this client. lg3 Outcome: 02:15 Decision to Hospitalize by Provider. sp4 02:50 Condition: stable lg3 02:50 Instructed on the need for admit, Demonstrated understanding of instructions. 03:14 Admitted to Med/surg accompanied by tech, via wheelchair, room 221, Report called to 3 Elizabeth 03:55 Patient left the ED. kd3 Signatures: Maryam Shafer, RN RN lg3 Rachelle Tinajero6 Radha Solorzano RN RN kd3 Juan Yoder MD MD sp4 Corrections: (The following items were deleted from the chart) 02:10 01:53 BP 152 / 56; Pulse 71bpm; Resp 18bpm; Spontaneous; Pulse Ox 100% RA; lg3 lg3
--- NOTE | 2022-08-21 02:15 | EDPHYS ---
Physician Documentation [facility] Name: Michelle Saavedra Age: 67 yrs Sex: Female : 1955 Arrival Date: 08/20/2022 Time: 21:39 Bed 7 Private MD: ED Physician Juan Yoder HPI: 08/20 21:47 This 67 yrs old Female presents to ER via Unassigned with complaints of sp4 Dizziness, General Weakness. 22:13 67-year-old female with prior history of atrial fibrillation, hypercholesterolemia, sp4 mechanical valve, hypertension presents with acute onset of generalized weakness, dizziness, nausea starting this morning. Patient denied any chest pain or abdominal pain, denied vomiting, denied fever. Historical: - Allergies: 22:09 Morphine; kd3 - Home Meds: 22:09 Coumadin 1 mg Oral tab 1 tab once daily [Active]; kd3 - PMHx: 22:09 Atrial fibrillation; Hypercholesterolemia; mechanical valve; Hypertensive disorder; kd3 - Immunization history:: Adult Immunizations up to date. - Social history:: Smoking status: Patient denies any tobacco usage or history of. - Family history:: not pertinent. ROS: 22:13 Constitutional: Negative for fever, chills, and weight loss, positive generalized sp4 weakness, positive dizziness, positive feeling unwell, positive nausea Eyes: Negative for injury, pain, redness, and discharge, ENT: Negative for injury, pain, and discharge, Neck: Negative for injury, pain, and swelling, Cardiovascular: Negative for chest pain, palpitations, and edema, Respiratory: Negative for shortness of breath, cough, wheezing, and pleuritic chest pain, Abdomen/GI: Negative for abdominal pain, vomiting, diarrhea, and constipation, positive for nausea Back: Negative for injury and pain, : Negative for injury, bleeding, discharge, and swelling, MS/Extremity: Negative for injury and deformity, Skin: Negative for injury, rash, and discoloration, Neuro: Negative for headache, weakness, numbness, tingling, and seizure, Psych: Negative for depression, anxiety, Allergy/Immunology: Negative for hives, rash, and allergies Endocrine: Negative for neck swelling, polydipsia, polyuria, polyphagia, and weight changes Hematologic/Lymphatic: Negative for swollen nodes, abnormal bleeding, and unusual bruising Exam: 08/21 02:05 Constitutional: This is a well developed, well nourished patient who is awake, alert, sp4 and in no acute distress. Thin female uncomfortable appearing Head/Face: Normocephalic, atraumatic. Eyes: Pupils equal round and reactive to light, extra-ocular motions intact. Lids and lashes normal. Conjunctiva and sclera are not injected. Cornea within normal limits. Periorbital areas with no swelling, redness, or edema. ENT: Nares patent. No nasal discharge, no septal abnormalities noted. Tympanic membranes are normal and external auditory canals are clear. Oropharynx with no redness, swelling, or masses, exudates, or evidence of obstruction, uvula midline. Mucous membranes moist. Neck: Trachea midline, no thyromegaly or masses palpated, and no cervical lymphadenopathy. Supple, full range of motion without nuchal rigidity, or vertebral point tenderness. No Meningismus. Chest/axilla: Normal chest wall appearance and motion. Nontender with no deformity. No lesions are appreciated. Cardiovascular: Regular rate and rhythm with a normal S1 and S2. No gallops, murmurs, or rubs. Normal PMI, no JVD. No pulse deficits. Respiratory: Lungs have equal breath sounds bilaterally, clear to auscultation and percussion. No rales, rhonchi or wheezes noted. No increased work of breathing, no retractions or nasal flaring. Abdomen/GI: Soft, non-tender, with normal bowel sounds. No distension or tympany. No guarding or rebound. No evidence of tenderness throughout. Back: No spinal tenderness. No costovertebral tenderness. Skin: Warm, dry with normal turgor. Normal color with no rashes, no lesions, and no evidence of cellulitis. MS/ Extremity: Pulses equal, no cyanosis. Neurovascular intact. Full, normal range of motion. Neuro: Awake and alert, GCS 15, oriented to person, place, time, and situation. Cranial nerves II-XII grossly intact. Motor strength 5/5 in all extremities. Sensory grossly intact. Psych: Awake, alert, with orientation to person, place and time. Behavior, mood, and affect are within normal limits 02:05 ECG was reviewed by the Attending Physician. EKG reveals sinus bradycardia with sp4 frequent premature atrial contractions. Rate 56, EKG time 2327 Vital Signs: 08/20 22:07 BP 153 / 63; Pulse 72; Resp 19; Temp 98(TE); Pulse Ox 100% ; Weight 45.36 kg; Height 5 kd3 ft. 3 in. ; 23:08 BP 149 / 58; Pulse 64; Resp 18 S; Pulse Ox 100% on R/A; lg3 08/21 00:46 BP 144 / 61; Pulse 63; Resp 17 S; Pulse Ox 100% on R/A; lg3 01:53 BP 132 / 56; Pulse 71; Resp 18 S; Pulse Ox 100% on R/A; lg3 08/20 22:07 Body Mass Index 17.71 (45.36 kg, 160.02 cm) kd3 MDM: 08/20 21:48 Patient medically screened. [facility] 08/21 02:08 Differential diagnosis: cardiac arrhythmia, generalized weakness, head injury, sp4 hypovolemia, near-syncope, sepsis, vertigo. Data reviewed: vital signs, nurses notes, old medical records, EKG, radiologic studies, plain films. Consideration of Admission/Observation Patient was admitted/placed on observation. Escalation of care including admission/observation considered. Management of patient was discussed with the following: Hospitalist: Admitting Hospitalist . ED course: EKG reveals sinus bradycardia with frequent PACs, patient complains of persistent chest pain left-sided moderate pain. . 02:14 ED course: Labs additionally reveal support she had above therapeutic INR. [facility] 08/20 22:12 Order name: CBC with Diff; Complete Time: 01:10 [facility] 08/20 22:12 Order name: CMP; Complete Time: 01:10 [facility] 08/20 22:12 Order name: Lipase; Complete Time: 01: 4 08/20 22:12 Order name: Urinalysis w/ reflexes; Complete Time: 01:10 [facility] 08/20 22:12 Order name: Troponin HS; Complete Time: 01:10 [facility] 08/20 22:12 Order name: BNP; Complete Time: 01:10 [facility] 08/20 22:58 Order name: PT-INR; Complete Time: 01:10 3 08/20 22:58 Order name: Ptt, Activated; Complete Time: 01: 3 08/20 23:43 Order name: Urine Culture [facility] 08/21 01:35 Order name: Troponin High Sensitivity [facility] 08/21 02:13 Order name: Chest Single View XRAY sp4 08/20 22:12 Order name: EKG; Complete Time: 22:12 sp4 08/20 22:12 Order name: IV Saline Lock; Complete Time: 23:05 sp4 08/20 22:12 Order name: Labs collected and sent; Complete Time: 23:05 sp4 EC:05 Rate is 56 beats/min. Rhythm is irregular, Sinus bradycardia with PACs. QRS [place] is sp4 Normal. T waves are Normal. No ST changes noted. Clinical impression: No evidence of ischemia. Interpreted by me. Administered Medications: 08/20 23:05 Drug: Famotidine IVP 20 mg Route: IVP; Site: left antecubital; lg3 23:05 Drug: Ondansetron IVP 4 mg Route: IVP; Site: left antecubital; lg3 23:05 Drug: NS 0.9% IV 1000 ml Route: IV; Rate: 125 ml/hr; Site: left antecubital; lg3 08/21 01:52 Drug: Promethazine PO 25 mg Route: PO; lg3 01:53 Drug: fentaNYL (PF) IVP 50 mcg Route: IVP; Site: left antecubital; lg3 Disposition Summary: 08/21/22 02:15 Hospitalization Ordered Hospitalization Status: Observation sp4 Provider: James Hartman sp4 [facility] sp4 Condition: Stable sp4 Problem: new sp4 Symptoms: have improved sp4 Bed/Room Type: Standard sp4 Room Assignment: [facility](08/21/22 02:19) Diagnosis - Atypical chest pain, symptomatic bradycardia, dizziness sp4 Forms: - Medication Reconciliation Form sp4 - SBAR form sp4 Signatures: Dispatcher [employer] EDAlbertina Roberto RN RN Maryam Merchant RN RN [id number] Radha Solorzano RN RN 3 Juan Yoder MD MD sp4 Corrections: (The following items were deleted from the chart) 02:19 02:15 sp4 mw
[2022-08-21] MEDS ORDERED: TRAMADOL HCL 50 MG TAB PO PRN (03:12)
--- NOTE | 2022-08-21 03:13 | P.HP ---
Certification for Inpatient Patient admitted to: Observation With expected LOS: <2 Midnights Patient will require the following post-hospital care: None Practitioner: I am a practitioner with admitting privileges, knowledge of patient current condition, hospital course, and medical plan of care. Services: Services provided to patient in accordance with Admission requirements found in Title 42 Section 412.3 of the Code of Federal Regulations <Farshad Roman - Last Filed: 08/21/22 03:10> Patient History Date of Service: 08/21/22 History of Present Illness: 67-year-old female with history of mechanical aortic valve/atrial fibrillation on chronic anticoagulation therapy presents emergency department with chief complaint of chest pain. She reports the chest pain began while lying in bed described as pressure-like nonradiating. She was evaluated in the emergency department initial high-sensitivity troponin 10.4 INR 3.63. EKG without STEMI criteria. ED provider wishes to admit interpretation for ACS rule out. - Past Medical/Surgical History Diabetic: No -: Atrial fibrillation/mechanical aortic valve on warfarin -: Hyperlipidemia -: HTN -: Chronic diastolic congestive heart failure -: GERD -: aortic valve replacement -: cardioversion -: tubal ligation Psychosocial/ Personal History: Patient lives at home with her children - Family History Brother -: Heart disease, Cancer Notes: heart attack Mother -: Heart disease, Diabetes Notes: of heart attack Father -: Heart disease Notes: of heart attack Sister -: Heart disease, Diabetes, Cancer Notes: sisters x2 - DM. sister x1 - heart attack. sister- lung cancer - Social History Smoking Status: Never smoker Alcohol use: Yes CD- Drugs: No Caffeine use: No Place of Residence: Home <Farshad Roman - Last Filed: 08/21/22 03:10> Date of Service: 08/21/22 <James Hartman - Last Filed: 08/21/22 11:01> Allergies morphine Allergy (Intermediate, Verified 12/25/21 01:15) panic ATTACK; shaking Home Medications: Alendronate Sodium 70 mg PO EVERY 7TH DAY 12/25/21 Atorvastatin Calcium 80 mg PO BEDTIME 12/25/21 Furosemide [Lasix*] 20 mg PO DAILY 12/25/21 Gabapentin 300 mg PO TID 12/25/21 Metoprolol Tartrate [Lopressor*] 25 mg PO BID 12/25/21 Pantoprazole [Protonix Tab*] 40 mg PO BID 12/25/21 Zolpidem Tartrate [Ambien*] 10 mg PO BEDTIME 12/25/21 Aspirin [Aspirin EC 81 MG] 81 mg PO DAILY #30 tab 03/28/22 Dofetilide 125 mcg PO BID 08/21/22 Ezetimibe [Zetia*] 10 mg PO DAILY 08/21/22 Hydrocodone Bit/Acetaminophen [Hydrocodon-Acetaminoph 7.5-325] 1 each PO BID PRN 08/21/22 Warfarin Sodium 2 mg PO DAILY 08/21/22 Review of Systems 10-point ROS is otherwise unremarkable Cardiovascular: Chest Pain <Farshad Roman - Last Filed: 08/21/22 03:10> Physical Examination - Physical Exam General: Alert, In no apparent distress, Oriented x3 HEENT: Atraumatic, PERRLA, Mucous membr. moist/pink, EOMI, Sclerae nonicteric Neck: Supple, 2+ carotid pulse no bruit, No LAD, Without JVD or thyroid abnormality Respiratory: Clear to auscultation bilaterally, Normal air movement Cardiovascular: Regular rate/rhythm, Normal S1 S2 Gastrointestinal: Normal bowel sounds, No tenderness Musculoskeletal: No tenderness Integumentary: No rashes Neurological: Normal speech, Normal strength at 5/5 x4 extr, Normal tone, Normal affect - Studies Laboratory Data (last 24 hrs) 08/20/22 22:52: PT 39.9 H, INR 3.63, APTT 44.5 H 08/20/22 22:52: Sodium 138, Potassium 3.6, BUN 16, Creatinine 1.07 H, Glucose 94, Total Bilirubin 0.4, AST 27, ALT 36, Alkaline Phosphatase 81, Lipase 43 08/20/22 22:52: WBC 7.10, Hgb 10.3 L, Hct 31.3 L, Plt Count 209 <Farshad Roman - Last Filed: 08/21/22 03:10> - Studies Laboratory Data (last 24 hrs) 08/20/22 22:52: PT 39.9 H, INR 3.63, APTT 44.5 H 08/20/22 22:52: Sodium 138, Potassium 3.6, BUN 16, Creatinine 1.07 H, Glucose 94, Total Bilirubin 0.4, AST 27, ALT 36, Alkaline Phosphatase 81, Lipase 43 08/20/22 22:52: WBC 7.10, Hgb 10.3 L, Hct 31.3 L, Plt Count 209 <James Hartman - Last Filed: 08/21/22 11:01> Assessment and Plan - Plan Assessment: Chest pain rule out ACS History of atrial fibrillation/mechanical aortic valve on chronic an ticoagulation with warfarin-mildly supratherapeutic INR Chronic diastolic ingestive heart failure Hyperlipidemia Plan: Chest pain rule out ACS Trend troponin, cardiology consult in place. Echocardiogram/stress test last performed March 2022 both normal. Continue home medications including. History of atrial fibrillation/mechanical aortic valve on chronic anticoagulation with warfarin-mildly supratherapeutic INR INR 3.65, will trend INR level, continue home dose warfarin once confirmed. Chronic diastolic ingestive heart failure Appears euvolemic at this time, continue medications. Hyperlipidemia Continue home meds. DVT PPX: Mildly supratherapeutic INR, monitor INR daily continue warfarin as appropriate. Code status: Full Discharge Plan: Home Plan to discharge in: 24 Hours - Advance Directives Does patient have a Living Will: No Does patient have a Durable POA for Healthcare: No - Code Status/Comfort Care Code Status Assessed: Yes (Full code) Critical Care: No Time Spent Managing Pts Care (In Minutes): 55 <Farshad Roman - Last Filed: 08/21/22 03:10> Physician Review: Patient Assessed, Agree with Above Assessment and Plan <James Hartman - Last Filed: 08/21/22 11:01>
[2022-08-21 04:55] VITALS: BMI 17.6
[2022-08-21] MEDS ORDERED: FENTANYL CITR 100 MCG/2 ML IV PRN (08:00)
[2022-08-21 08:12] VITALS: BP 106/56
[2022-08-21 08:14] VITALS: TEMP 97.9
[2022-08-21 08:19] LABS: Albumin 3.2 g/dL (3.4-5.0); Bilirubin Direct 0.1 mg/dL (0-0.2); Bilirubin Total 0.3 mg/dL (0.2-1.0); Protein, Total 6.3 g/dL (6.4-8.2); Troponin High Sensitivity 10.6 pg/mL (<58.9)
[2022-08-21 08:59] VITALS: O2SAT 98
[2022-08-21] MEDS ORDERED: ASPIRIN EC 81 MG TAB PO SCH (09:00)
[2022-08-21] MEDS ORDERED: ATORVASTATIN 40 MG TAB PO SCH (09:00)
[2022-08-21] MEDS ORDERED: METOPROLOL TAR 25 MG TAB PO SCH (09:00)
--- NOTE | 2022-08-21 09:26 | RAD REPORT ---
EXAM DESCRIPTION: CT - Chest For Pe Angio - 08/21/2022 9:03 am CLINICAL HISTORY: Chest pain. elevated d-dimer COMPARISON: Chest For Pe Angio dated 01/31/2022 TECHNIQUE: CT angiogram of the pulmonary arteries was performed with MIP. All CT scans are performed using dose optimization technique as appropriate and may include automated exposure control or mA/KV adjustment according to patient size. FINDINGS: No evidence of pulmonary thromboembolism. Heavy atherosclerosis of the thoracic aorta. Thoracic aorta is suboptimally contrast opacified for fu ll assessment. Descending thoracic aorta measures up to 4 cm in maximum dimension. Emphysema, [id number] in severity. No significant pericardial or pleural fluid. The heart is mildly enlarged. No concerning bony finding. IMPRESSION: No evidence of pulmonary thromboembolism. Mild to moderate COPD. Full thoracic aortic assessment is limited due to contrast bolus timing. 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
--- NOTE | 2022-08-21 10:02 | RAD REPORT ---
EXAM DESCRIPTION: US - Extrem Venous W Compress Yves - 08/21/2022 9:21 am CLINICAL HISTORY: elevated d-dimer Bilateral leg edema and swelling. COMPARISON: Extrem Venous W Compress Yves dated 01/31/2022 TECHNIQUE: Real-time sonographic interrogation of the left and right lower extremity deep venous sys tems was performed. FINDINGS: Normal compressibility, flow augmentation, phasic flow and spontaneous flow is identified in both the left and right lower extremity deep venous systems. IMPRESSION: No sonographic evidence of left or right lower extremity deep venous thrombosis.
--- NOTE | 2022-08-21 11:02 | P.DS ---
Admission Date: 08/21/22 Discharge Date: 08/21/22 Primary Care Provider: Dr. Roa Disposition: ROUTINE DISCHARGE Discharge Condition: GOOD Reason for Admission: Chest Pain Consultations: 1. Cardiology Hospital Course: DIAGNOSES: # Chest Pain, likely non-cardiac # Aortic Valvulopathy s/p Mechanical Aortic Valve Replacement on Warfarin # Chronic Compensated Diastolic Congestive Heart Failure # Atrial Fibrillation s/p Cardioversion # Hypertension # Hyperlipidemia # Gastroesophageal Reflux Disease HOSPITAL COURSE: Ms. Michelle Saavedra is a 67 year old female with a past medical history significant for atrial fibrillation s/p cardioversion, aortic valvulopathy s/p mechanical aortic valve replacement on warfarin, chronic diastolic congestive heart failure, hypertension, hyperlipidemia, and gastroesophageal reflux disease who was admitted to the [facility] on 08/21/2022 for chest discomfort. She was admitted to the Medicine service. Upon further evaluation, her EKG was reportedly without STEMI criteria. Her troponin trend was 10.4, 13.5, and 10.6, respectively. Her D-dimer returned mildly elevated at 848. A CT chest angiogram revealed, "no evidence of pulmonary thromboembolism. Mild to moderate COPD. Full thoracic aortic assessment is limited due to contrast bolus timing. 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 Cardiology was consulted and she was seen by Dr. Carter. He has cleared her for discharge with outpatient follow-up. She was informed of the 4 cm descending thoracic aortic aneurysm and was advised to follow-up with Dr. Carter for further evaluation. She verbalized understanding and agreed to make this appointment. On 08/21/2022, she was seen on morning rounds and deemed medically stable for discharge. She was discharged with instructions to schedule follow-up appointments with her PCP (Dr. Roa), with her Hat Model (Dr. Carter), and with her Pain Medicine (Dr. Meza). She was given the opportunity to ask questions and reported no further questions. Furthermore, all questions were answered to the best of my ability. A copy of this discharge summary will be sent to the above providers to facilitate continuity of care. Today, I personally spent 25 minutes on her case, of which greater than 50% of the time was spent in patient education, counseling, and coordination of care as described above. Vital Signs/Physical Exam: Temp Pulse Resp BP Pulse Ox 97.9 F 55 18 106/56 L 98 08/21/22 08:00 08/21/22 08:10 08/21/22 08:31 08/21/22 08:10 08/21/22 08:31 General: Alert, In no apparent distress, Oriented x3 HEENT: Atraumatic, Mucous membr. moist/pink, Sclerae nonicteric Neck: JVD not distended Respiratory: Clear to auscultation bilaterally, Normal air movement Cardiovascular: No edema, Regular rate/rhythm, Other (mechanical valve click noted) Gastrointestinal: Normal bowel sounds, Soft and benign, Non-distended, No tenderness, No rebound, No guarding Musculoskeletal: No clubbing Integumentary: No rashes Neurological: Normal speech, Normal affect Laboratory Data at Discharge: WBC 7.10 thou/uL (4.3-10.9) 08/20/22 22:52 Hgb 10.3 g/dL (12.0-15.0) L 08/20/22 22:52 Hct 31.3 % (36.0-45.0) L 08/20/22 22:52 Plt Count 209 thou/uL (152-406) 08/20/22 22:52 PT 39.9 SECONDS (9.5-12.5) H 08/20/22 22:52 INR 3.63 08/20/22 22:52 APTT 44.5 SECONDS (24.3-36.9) H 08/20/22 22:52 Sodium 138 mEq/L (136-145) 08/20/22 22:52 Potassium 3.6 mEq/L (3.5-5.1) 08/20/22 22:52 BUN 16 mg/dL (7-18) 08/20/22 22:52 Creatinine 1.07 mg/dL (0.55-1.02) H 08/20/22 22:52 Glucose 94 mg/dL (74-106) 08/20/22 22:52 Total Bilirubin 0.3 mg/dL (0.2-1.0) 08/21/22 07:34 AST 24 U/L (15-37) 08/21/22 07:34 ALT 31 U/L (13-56) 08/21/22 07:34 Alkaline Phosphatase 70 U/L (45-117) 08/21/22 07:34 Lipase 43 U/L (13-75) 08/20/22 22:52 Home Medications: Alendronate Sodium 70 mg PO EVERY 7TH DAY 12/25/21 Atorvastatin Calcium 80 mg PO BEDTIME 12/25/21 Furosemide [Lasix*] 20 mg PO DAILY 12/25/21 Gabapentin 300 mg PO TID 12/25/21 Metoprolol Tartrate [Lopressor*] 25 mg PO BID 12/25/21 Pantoprazole [Protonix Tab*] 40 mg PO BID 12/25/21 Zolpidem Tartrate [Ambien*] 10 mg PO BEDTIME 12/25/21 Aspirin [Aspirin EC 81 MG] 81 mg PO DAILY #30 tab 03/28/22 Dofetilide 125 mcg PO BID 08/21/22 Ezetimibe [Zetia*] 10 mg PO DAILY 08/21/22 Hydrocodone Bit/Acetaminophen [Hydrocodon-Acetaminoph 7.5-325] 1 each PO BID PRN 08/21/22 Warfarin Sodium 2 mg PO DAILY 08/21/22 Physician Discharge Instructions: 1. Please call and schedule a follow-up appointment with your PCP (Dr. Roa) in 3-5 days 2. Please call and schedule a follow-up appointment with Cardiology (Dr. Carter) in 5-7 days - As we discussed, please have him follow-up on the aneurysm of your aorta 3. Please call and schedule a follow-up appointment with your Pain Medicine specialist (Dr. Meza) in 5-7 days Diet: AHA Activity: Ad fransisco Followup: Soren Carter MD [ACTIVE - CAN ADMIT] - (call to schedule an appointment in 5-7 days.) Shar Roa MD [Primary Care Provider] - (call to schdeule an appointment in 3-5 days) Joseph Meza DO [ACTIVE - CAN ADMIT] - (call to schedule an appointment in 5-7 days) Time spent managing pt's care (in minutes): 25
--- NOTE | 2022-08-21 15:35 | RAD REPORT ---
EXAM DESCRIPTION: Chest Single View CLINICAL HISTORY: 67 years Female CHEST PAIN COMPARISON: Chest x-ray 10/09/2021 FINDINGS: Median sternotomy changes again noted. Lung volumes adequate. Cardiac silhouette is unchanged. Unchanged biapical scarring. No pneumothorax. No large pleural effusion. Unchanged coarse perihilar interstitial markings. No focal consolidation. No acute bony finding. IMPRESSION: No acute cardiopulmonary findings. Electronically signed by: Alivia Mcgill MD 08/21/2022 6:37 AM CDT Due to temporary technical issues with the PACS/Fluency reporting system, reports are being signed by the in house radiologists without review as a courtesy to insure prompt reporting. The interpreting radiologist is fully responsible for the content of the report.
--- NOTE | 2022-08-21 15:36 | EKG ---
Test Date: 2022-08-20 Test Time: 23:25:16 Movie Theater Manager: MARLON MEASUREMENT RESULTS: Intervals: Rate: 68 ND: 250 QRSD: 108 QT: 528 QTc: 561 Criders: P: 64 ND: 250 QRS: 55 T: -54 INTERPRETIVE STATEMENTS: Sinus rhythm with 1st degree AV block with premature atrial complexes ST & T wave abnormality, consider inferior ischemia Prolonged QT Abnormal ECG Compared to ECG 07/31/2022 17:11:22 Atrial premature complex(es) now present ST (T wave) deviation now present Possible ischemia now present Electronically Signed On 08-21-22 15:34:24 CDT by Soren Carter
--- NOTE | 2022-08-22 10:36 | ECHO ---
HEIGHT: 5 ft 3 in WEIGHT: 100 lb 0 oz DATE OF STUDY: 08/21/[address]: Soren Carter MD 2-DIMENSIONAL: YES M.MODE: YES DOPPLER: YES COLOR FLOW: YES TDS: NO PORTABLE: YES DEFINITY: NO BUBBLE STUDY: NO DIAGNOSIS: CHEST PAIN, AORTIC VALVE REPLACEMENT CARDIAC HISTORY: CATHERIZATION: NO SURGERY: YES PROSTHETIC VALVE: YES PACEMAKER: NO MEASUREMENTS (cm) DIASTOLIC (NORMALS) SYSTOLIC (NORMALS) IVSd 1.0 (0.6-1.2) LA Diam 3.9 (1.9-4.0) LVEF 85% LVIDd 3.9 (3.5-5.7) LVIDs 1.8 (2.0-3.5) %FS 53% LVPWd 0.9 (0.6-1.2) Ao Diam 2.0 (2.0-3.7) 2 DIMENSIONAL ASSESSMENT: RIGHT ATRIUM: NORMAL LEFT ATRIUM: NORMAL RIGHT VENTRICLE: NORMAL LEFT VENTRICLE: NORMAL TRICUSPID VALVE: NORMAL MITRAL VALVE: NORMAL PULMONIC VALVE: NORMAL AORTIC VALVE: S/P AVR PERICARDIAL EFFUSION: NONE AORTIC ROOT: NORMAL LEFT VENTRICULAR WALL MOTION: NORMAL DOPPLER/COLOR FLOW: MILD MITRAL AND TRICUSPID REGURGITATION. COMMENTS: 1. MILD MITRAL AND TRICUSPID REGURGITATION. 2. NORMAL AORTIC VALVE REPLACEMENT FUNCTION. 3. NORMAL LEFT VENTRICULAR SIZE AND FUNCTION. TECHNOLOGIST: Danna ZAMORA
--- NOTE | 2022-08-22 12:44 | CON ---
Date of Consultation: 08/21/2022 Reason For Consultation: Atypical chest pain. History Of Present Illness: Ms. Saavedra is 67. Has a history of mechanical aortic valve replacement, at which time she had normal coronary. She has a history of hypertension, gastroesophageal reflux d isease, dyslipidemia as well as atrial fibrillation. Recently, had a negative cardiac workup includi ng echos and Lexiscan. She comes in with atypical chest pain, sharp, stabbing, left-sided, worse whe n she takes a deep breath, nonexertional. No fever or chills. No nausea, vomiting, diaphoresis. De nied PND, orthopnea, pedal edema, palpitations, or syncope. Her BNP was 472. EKG was unremarkable. Her INR is 3.63, otherwise everything else was normal. Allergies: SHE IS ALLERGIC TO MORPHINE. Review of Systems: Negative. Social History: Negative. Family History: Negative. Medications: At home include aspirin, Coumadin, Lipitor, Tikosyn, Zetia, Lasix, and metoprolol. Physical Examination: General: She looks a lot older than her stated age. Vital Signs: She is in normal rhythm, afebrile. HEENT: Negative. Neck: Supple with no bruit. Chest: Clear. Cardiac: Revealed crisp aortic valve sound. No murmurs, gallops, or rubs. Abdomen: Benign. Extremities: Revealed no clubbing, cyanosis, or edema. Diagnostic Data: Earlier normal. Impression And Plan: 1.Noncardiac chest pain most likely musculoskeletal. 2.Hypertension. 3.Dyslipidemia. 4.Paroxysmal atrial fibrillation, on Tikosyn. 5.Gastroesophageal reflux disease. 6.Anticoagulation therapy. The patient is known to have normal coronaries by catheterization in the past. Another echocardiogram is pending. She will go home after that. We will see her in the [facility] as an outpatient. PANCHITO/DANE Voice ID: [id number] Report ID: [id number]
--- NOTE | 2022-08-22 16:01 | EKG ---
Test Date: 2022-08-20 Test Time: 23:27:24 Senior Sales Executive: MARLON MEASUREMENT RESULTS: Intervals: Rate: 56 MO: QRSD: 114 QT: 528 QTc: 509 [place]: P: MO: QRS: 57 T: 17 INTERPRETIVE STATEMENTS: Atrial fibrillation Incomplete left bundle branch block ST abnormality, possible digitalis effect Prolonged QT Abnormal ECG Compared to ECG 08/20/2022 23:25:16 Left bundle-branch block now present Sinus rhythm no longer present Atrial premature complex(es) no longer present First degree AV block no longer present Possible ischemia no longer present ST (T wave) deviation still present Electronically Signed On 08-22-22 15:57:43 CDT by Soren Carter
== END 2022-08-21 10:58 | disposition home or self-care (01) ==
LOC: ER 21:39 → 2ND 08-21 02:26
PROVIDERS: ADMIT Internal Medicine; ATTEND Internal Medicine
DX: R07.9 Chest pain, unspecified (principal); I35.8 Other nonrheumatic aortic valve disorders; I50.32 Chronic diastolic (congestive) heart failure; I48.11 Longstanding persistent atrial fibrillation; I10 Essential (primary) hypertension; K21.9 Gastro-esophageal reflux disease without esophagitis; E78.5 Hyperlipidemia, unspecified; Z79.01 Long term (current) use of anticoagulants; Z95.4 Presence of other heart-valve replacement
CPT/HCPCS: 93005; 93306; 87088; 85025; 81001; 87086; 36415; 85610; 85379; 80076; 85730; 84484 ×3; 83690; 80053; 83880; 71275; 71045; 93970; Q9967; Q0169; J3010 ×2; J2405; J7030; G0378

== ENCOUNTER 2022-08-23 23:17 | Emergency (ER) | payer OTHER ==
--- OUTSIDE RECORDS SUMMARY | 2022-08-23 23:32 | XMS REPORT | Continuity of Care Document ---
:1955 Author Organization [facility] t Address [address] [place] [address] Care Team Providers Name Role Phone Saurabh Dobson Primary Care Physician DANIEL IBRAHIM Attending Clinician Unavailable Saurabh Dobson Attending Clinician Unavailable MARIIA CARDONA Attending Clinician Unavailable MARIIA CARDONA Attending Clinician Unavailable REBECA HOLCOMB Attending Clinician Unavailable REBECA HOLCOMB Attending Clinician Unavailable WAYNE RABAGO Attending Clinician Unavailable JAMAICA DAN Attending Clinician Unavailable Sy LOVELL, [place] Attending Clinician JOSEPH CORTES Attending Clinician Unavailable Joseph Cortes MD Attending Clinician Pob, [facility] Main Attending Clinician Unavailable Doctor Unassigned, [place] Attending Clinician Unavailable Isaak FISHER, Jeremy Ricardo Attending Clinician Unavailable Rito Rabago MDf Attending Clinician Santos LOVELL, Sean Granda Attending Clinician [phone] Vinayak Cook MD Attending Clinician Lynnette LOVELL, Shadi Jhaveri Attending Clinician [phone] Justo Pagan MD, Franc Calles Attending Clinician [...] Number Effective Date Expiration Date Judi [facility] [id number] 2020 COMP HMO D SNP 00:00:00 [facility] [id number] 2013 PLUS 00:00:00 [place]ID [place] [id number] 2022 00:00:00 Problems Condition Condition Condition Status [...] loss 2-07 [facility] anemia anemia 00:00: [facility] 00 Center Suprathera Suprathera Disease Active [facility] peutic INR peutic INR 2-07 Yady kes 00:00: [facility] 00 Center Fall Fall Disease Active [facility]: [facility] 00 Center Acute Acute Disease Active [facility] bleed bleed 00:00: [facility] 00 Center GI bleed GI bleed Disease [facility] 00:[facility]: [facility] 00 Center Atrial Atrial Disease Active Univers fibrillati fibrillati 8-11 it y of on on 00:00: [place] 00 Medical Branch E44.0 E44.0 Disease Active 2020-04 Univers Moderate Moderate 1-19 ity of protein protein 00:00: [place] calorie calorie 00 Medical malnutriti malnutriti Br anch on on Other Other Disease Active 2020-04 Univers chest pain chest pain 1-19 it y of 00:00: [place] 00 Medical Branch Chest pain Chest pain Disease Active 2020-04 U nivers 1-17 ity of 00:00: [place] 00 Medical Branch Elevated Elevated Disease Active [...] ated ated 8-20 ity of 00:00: [place] [facility] Coronary Coronary Disease Active Unive rs artery artery 8-20 ity of disease disease 00:00: [place] involving involving 00 [place] coronary coronary artery of artery of [place] 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 8-20 ity of disease disease 00:00: [place] involving involving 00 Medi [place] coronary coronary artery of artery of [place] 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 2-20 ity of disease disease 00:00: [place] involving involving 00 Medi [place] Branch heart heart without without angina angina [...] Date Stop Date Source Natural mother Diabetes [facility] Natural mother Heart [facility] Other Diabetes [facility] Natural sister Cancer [facility] Natural sister Diabetes [facility] Social History Social Habit Start Date Stop Date Quantity Comments Source History SDOH Social Unive rsity of Connections Get [place] [facility] ical Together Branch History SDOH Social Unive rsity of Connections [facility] Medical Branch History SDOH Social Unive rsity of Connections [place] [facility] Membership Branch History SDOH Social Unive rsity of Connections [place] [facility] Meetings Branch Exposure to 2022-06-15 2022-06-25 Not sure University of SARS-CoV-2 (event) 00:00:00 10:27:00 [place] [facility] History SDOH 2022-06-07 2022-06-07 1 [...] 5 University o f Financial 00:00:00 00:00:00 [place] [facility] History SDOH Food 2022-06-07 2022-06-07 1 Univers ity of Worry 00:00:00 00:00:00 [place] [facility] [place] History SDOH Food 2022-06-07 2022-06-07 1 Univers ity of Scarcity 00:00:00 00:00:00 [place] [facility] [place] History SDOH 2022-06-07 2022-06-07 2 University o f Transport Med 00:00:00 00:00:00 [place] Medic al Branch History SDOH 2022-06-07 2022-06-07 2 University o f Transport Non-Med 00:00:00 00:00:00 [place] M edical Branch Education 2022-06-06 2022-06-06 14 University of 00:00:00 00:00:00 [facility] Tobacco use and 2022-05-19 2022-05-[address] [facility] k[facility] exposure 00:00:00 00:00:00 tobacco non-user Medical Center Alcohol intake 2022-05-19 2022-05-19 Ex-drinker [facility] 00:00[facility]00 00:00:00 (finding) Medical Center History [facility] 2022-05-18 2022-05-[address] [facility] Housing Unable to 00:00:00 00:00:00 Medical Center Pay History [facility] 2022-05-18 2022-05-[address] [facility] Housing Places 00:00:00 00:00:00 Medical Ce nter Lived History [facility] 2022-05-18 2022-05-[address] [facility] Housing Homeless 00:00:00 00:00:00 Medical Center Last Year Sex Assigned At [address] [facility] 00:00:00 00:00:00 Medical Center Smoking Status Start Date Stop Date Source Never smoked tobacco [facility] Medications Ordered Filled Start Stop Current Ordering Indication Dosage Frequency Signature Comments Components Source Medication Medication Date Date Medication? Clinician (SIG) Name Name ezetimibe Yes [id number] 10mg Take 1 U nivers (ZETIA) 10 4-18 tablet by ity of mg tablet 00:[place] the Medical morning. Branch ezetimibe Yes [id number] 10mg Take 1 U nivers (ZETIA) 10 4-18 tablet by [place]y of mg tablet 00:00[place] the Medical morning. [place] ezetimibe 2022-0 Yes [id number] 10mg Take 1 U nivers (ZETIA) 10 4-18 tablet by ity of mg tablet 00:00: [place] the Medical morning. [place] ezetimibe 2022-0 Yes [id number] 10mg Take 1 U nivers (ZETIA) 10 4-18 tablet by ity of mg tablet 00:00: [place] the Medical morning. [place] ezetimibe 2022-0 Yes [id number] 10mg Take 1 U nivers (ZETIA) 10 4-18 tablet by ity of mg tablet 00:00: [place] the Medical morning. [place] ezetimibe 2022-0 Yes [id number] 10mg Take 1 U nivers (ZETIA) 10 4-18 tablet by [place]y of mg tablet 00:00: [place] the Medical morning. [place] ezetimibe 0 Yes [id number] 10mg Take 1 U nivers (ZETIA) 10 4-18 tablet by ity of mg tablet 00:00: [place] the Medical morning. [place] ezetimibe 0 Yes [id number] 10mg Take 1 U nivers (ZETIA) 10 4-18 tablet by ity of mg tablet 00:00: [place] the Medical morning. [place] alendronate Yes 70mg 70 mg, Univ ers (FOSAMAX) 06-13 Oral, ity of tablet 70 06:00: QWEEKLY, [place] mg 00 First dose Medical on Sat [place] 06/13/22 at 0000, Until Discontinu ed, Routine magnesium 2022-0 2022- No 400mg 400 mg, Uni vers oxide 06-12 Oral, ity of (MAG-OX 14:45: 14:19 ONCE, 1 [place] 400) tablet 00 :00 dose, On Medi tyrone 400 mg Sat [place] 06/12/22 at 0845, Routine HYDROcodone 0 Yes 1 tablet Un chong -acetaminop 06-12 as needed ity of hen 7.5-325 12:24: [...] mg per 55 Medical tablet Branch HYDROcodone Yes 1 tablet Un [place]ong -acetaminop 2-28 [...] mg per 55 Medical tablet Branch Fesoterodin 2022- No 1 tablet U [...] 35 Medical tablet Branch NaCl 0.9% Yes [id number] 250mL at 20 U nivers (NS) IV 2 mL/hr, IV ity of infusion 16:15: [place]fusion, [place] 250 [place] 00 CONTINUOUS Medical , Starting Branch on 06/11/22 at 1015, Until Discontinu ed, Routine&lt ;br>KVO
lidocaine 2022- No [id number] 15mL 15 mL, Univers 2% viscous 06-11 9107 Oral, ity of (LIDOCAINE 16:15: 16:15 ONCE, 1 [place]ak as VISCOUS) 2 00 :00 dose, On Medic al % solution Mon Branch 15 mL 06/11/22 at 1015, Routine FENTanyl PF 2022- No [id number] 50ug 50 mcg, Univers (SUBLIMAZE 06-11 9107 Slow IV ity o f (PF)) 16:15: 16:15 Push, [place] injection 00 :00 ONCE, 1 Medical 50 mcg dose, On Branch 06/11/22 at 1015, Routine midazolam 2022- No [id number] 1mg 1 mg, IV Univers (VERSED) 06-11 9107 Push, ity of injection 1 16:15: 16:15 ONCE, 1 [place] mg 00 :00 dose, On Medical Mon [place] 06/11/22 at 1015, Routine warfarin 1 Yes [id number] 2mg Take 2 Univers mg tablet 2-27 tablets by ity of 00:00: mouth [place] 00 every Medical evening. Branch Alternate take 1mg x3 days, then 2mg x 4 days warfarin Yes [id number] 2mg Take 2 Univers mg tablet 2-27 tablets by ity of 00:00: mouth [place] 00 every Medical evening. Branch Alternate take 1mg x3 days, then 2mg x 4 days warfarin Yes [id number] 2mg Take 2 Univers mg tablet 2-27 tablets by ity of 00:00: mouth [place] 00 every Medical evening. Branch Alternate take 1mg x3 days, then 2mg x 4 days warfarin Yes [id number] 2mg Take 2 Univers mg tablet 2-27 tablets by ity of 00:00: mouth [place] 00 every Medical evening. Branch Alternate take 1mg x3 days, then 2mg x 4 days warfarin Yes [id number] 2mg Take 2 Univers mg tablet 2-27 tablets by ity of 00:00: mouth [place] 00 every Medical evening. Branch Alternate take 1mg x3 days, then 2mg x 4 days warfarin 1 Yes [id number] 2mg Take 2 Univers mg tablet 2-27 tablets by ity of 00:00: mouth [place] 00 every Medical evening. Branch Alternate take 1mg x3 days, then 2mg x 4 days warfarin Yes [id number] 2mg Take 2 Univers mg tablet 2-27 tablets by ity of 00:00: mouth [place] 00 every Medical evening. Branch Alternate take 1mg x3 days, then 2mg x 4 days warfarin Yes [id number] 2mg Take 2 Univers mg tablet 2-27 tablets by ity of 00:00: mouth [place] 00 every Medical evening. Branch Alternate take 1mg x3 days, then 2mg x 4 days warfarin 1 Yes [id number] 2mg Take 2 Univers mg tablet 2-27 tablets by ity of 00:00: mouth [place] 00 every Medical evening. Branch Alternate take 1mg x3 days, then 2mg x 4 days warfarin 1 0 Yes [id number] 2mg Take 2 Univers mg tablet 2-27 tablets by ity of 00:00: mouth [place] 00 every Medical evening. Branch Alternate take 1mg x3 days, then 2mg x 4 days warfarin 2022-0 Yes [id number] 2mg Take 2 Univers mg tablet 2-27 tablets by ity of 00:00: mouth [place] 00 every Medical evening. Branch Alternate take 1mg x3 days, then 2mg x 4 days warfarin Yes [id number] 2mg Take 2 Univers mg tablet 2-27 tablets by ity of 00:00: mouth [place] 00 every Medical evening. Branch Alternate take 1mg x3 days, then 2mg x 4 days warfarin Yes [id number] 2mg Take 2 Univers mg tablet 2-27 tablets by ity of 00:00: mouth [place] 00 every Medical evening. Branch Alternate take 1mg x3 days, then 2mg x 4 days warfarin 1 Yes [id number] 2mg Take 2 Univers mg tablet 2-27 tablets by ity of 00:00: mouth [place] 00 every Medical evening. Branch Alternate take 1mg x3 days, then 2mg x 4 days warfarin 1 0 Yes [id number] 2mg Take 2 Univers mg tablet 2-27 tablets by ity of 00:00: mouth [place] 00 every Medical evening. Branch Alternate take 1mg x3 days, then 2mg x 4 days warfarin 0 Yes [id number] 2mg Take 2 Univers mg tablet 2-27 tablets by ity of 00:00: mouth [place] 00 every Medical evening. Branch Alternate take 1mg x3 days, then 2mg x 4 days warfarin 1 0 Yes [id number] 2mg Take 2 Univers mg tablet 2-27 tablets by ity of 00:00: mouth [place] 00 every Medical evening. Branch Alternate take 1mg x3 days, then 2mg x 4 days warfarin 1 2022-0 Yes [id number] 2mg Take 2 Univers mg tablet 2-27 tablets by ity of 00:00: mouth [place] 00 every Medical evening. Branch Alternate take 1mg x3 days, then 2mg x 4 days warfarin 1 Yes [id number] 2mg Take 2 Univers mg tablet 2-27 tablets by ity of 00:00: mouth [place] 00 every Medical evening. Branch Alternate take 1mg x3 days, then 2mg x 4 days warfarin 1 Yes [id number] 2mg Take 2 Univers mg tablet 2-27 tablets by ity of 00:00: mouth [place] 00 every Medical evening. Branch Alternate take 1mg x3 days, then 2mg x 4 days warfarin 1 Yes [id number] 2mg Take 2 Univers mg tablet 2-27 tablets by ity of 00:00: mouth [place] 00 every Medical evening. Branch Alternate take 1mg x3 days, then 2mg x 4 days warfarin 1 Yes [id number] 2mg Take 2 Univers mg tablet 2-27 tablets by ity of 00:00: mouth [place] 00 every Medical evening. Branch Alternate take 1mg x3 days, then 2mg x 4 days warfarin 1 Yes [id number] 2mg Take 2 Univers mg tablet 2-27 tablets by ity of 00:00: mouth [place] 00 every Medical evening. Branch Alternate take 1mg x3 days, then 2mg x 4 days warfarin 1 Yes [id number] 2mg Take 2 Univers mg tablet 2-27 tablets by ity of 00:00: mouth [place] 00 every Medical evening. Branch Alternate take 1mg x3 days, then 2mg x 4 days warfarin 1 Yes [id number] 2mg Take 2 Univers mg tablet 2-27 tablets by ity of 00:00: mouth [place] 00 every Medical evening. Branch Alternate take 1mg x3 days, then 2mg x 4 days warfarin 1 Yes [id number] 2mg Take 2 Univers mg tablet 2-27 tablets by ity of 00:00: mouth [place] 00 every Medical evening. Branch Alternate take 1mg x3 days, then 2mg x 4 days dofetilide 2022- Yes [id number] 250ug Take 1 Univers 250 mcg 2-27 -29 capsule by ity o f capsule 00:00: 04:59 mouth [place] 00 :00 every 12 Medical (twelve) Branch hours for 90 days. dofetilide 2022- Yes [id number] 250ug Take 1 Univers 250 mcg 2-27 05-29 capsule by ity o f capsule 00:00: 04:59 mouth [place] 00 :00 every 12 Medical (twelve) Branch hours for 90 days. dofetilide 2022- Yes [id number] 250ug Take 1 Univers 250 mcg 2-27 05-29 capsule by ity o f capsule 00:00: 04:59 mouth [place] 00 :00 every 12 Medical (twelve) Branch hours for 90 days. dofetilide 2022- Yes [id number] 250ug Take 1 Univers 250 mcg 2-27 05-29 capsule by ity o f capsule 00:00: 04:59 mouth [place] 00 :00 every 12 Medical (twelve) Branch hours for 90 days. dofetilide 2022- Yes [id number] 250ug Take 1 Univers 250 mcg 2-27 05-29 capsule by ity o f capsule 00:00: 04:59 mouth [place] 00 :00 every 12 Medical (twelve) Branch hours for 90 days. dofetilide 2022- Yes [id number] 250ug Take 1 Univers 250 mcg 2-27 05-29 capsule by ity o f capsule 00:00: 04:59 mouth [place] 00 :00 every 12 Medical (twelve) Branch hours for 90 days. dofetilide 2022- Yes [id number] 250ug Take 1 Univers 250 mcg 2-27 05-29 capsule by ity o f capsule 00:00: 04:59 mouth [place] 00 :00 every 12 Medical (twelve) Branch hours for 90 days. dofetilide 2022- Yes [id number] 250ug Take 1 Univers 250 mcg 2-27 05-29 capsule by ity o f capsule 00:00: 04:59 mouth [place] 00 :00 every 12 Medical (twelve) Branch hours for 90 days. dofetilide 2022- Yes [id number] 250ug Take 1 Univers 250 mcg 2-27 05-29 capsule by ity o f capsule 00:00: 04:59 mouth [place] 00 :00 every 12 Medical (twelve) Branch hours for 90 days. dofetilide 2022- Yes [id number] 250ug Take 1 Univers 250 mcg 2-27 05-29 capsule by ity o f capsule 00:00: 04:59 mouth [place] 00 :00 every 12 Medical (twelve) Branch hours for 90 days. dofetilide 2022- Yes [id number] 250ug Take 1 Univers 250 mcg 2-27 05-29 capsule by ity o f capsule 00:00: 04:59 mouth [place] 00 :00 every 12 Medical (twelve) Branch hours for 90 days. dofetilide 2022- Yes [id number] 250ug Take 1 Univers 250 mcg 2-27 05-29 capsule by ity o f capsule 00:00: 04:59 mouth [place] 00 :00 every 12 Medical (twelve) Branch hours for 90 days. dofetilide 2022- Yes [id number] 250ug Take 1 Univers 250 mcg 2-27 05-29 capsule by ity o f capsule 00:00: 04:59 mouth [place] 00 :00 every 12 Medical (twelve) Branch hours for 90 days. dofetilide 2022- Yes [id number] 250ug Take 1 Univers 250 mcg 2-27 05-29 capsule by ity o f capsule 00:00: 04:59 mouth [place] 00 :00 every 12 Medical (twelve) Branch hours for 90 days. dofetilide 2022- Yes [id number] 250ug Take 1 Univers 250 mcg 2-27 05-29 capsule by ity o f capsule 00:00: 04:59 mouth [place] 00 :00 every 12 Medical (twelve) Branch hours for 90 days. dofetilide 2022- Yes [id number] 250ug Take 1 Univers 250 mcg 2-27 05-29 capsule by ity o f capsule 00:00: 04:59 mouth [place] 00 :00 every 12 Medical (twelve) Branch hours for 90 days. dofetilide 2022- Yes [id number] 250ug Take 1 Univers 250 mcg 2-27 05-29 capsule by ity o f capsule 00:00: 04:59 mouth [place] 00 :00 every 12 Medical (twelve) Branch hours for 90 days. dofetilide 2022- Yes [id number] 250ug Take 1 Univers 250 mcg 2-27 05-29 capsule by ity o f capsule 00:00: 04:59 mouth [place] 00 :00 every 12 Medical (twelve) Branch hours for 90 days. dofetilide 2022- Yes [id number] 250ug Take 1 Univers 250 mcg 2-27 05-29 capsule by ity o f capsule 00:00: 04:59 mouth [place] 00 :00 every 12 Medical (twelve) Branch hours for 90 days. dofetilide 2022- Yes [id number] 250ug Take 1 Univers 250 mcg 2-27 05-29 capsule by ity o f capsule 00:00: 04:59 mouth [place] 00 :00 every 12 Medical (twelve) Branch hours for 90 days. dofetilide 2022- Yes [id number] 250ug Take 1 Univers 250 mcg 2-27 05-29 capsule by ity o f capsule 00:00: 04:59 mouth [place] 00 :00 every 12 Medical (twelve) Branch hours for 90 days. dofetilide 2022- Yes [id number] 250ug Take 1 Univers 250 mcg 2-27 05-29 capsule by ity o f capsule 00:00: 04:59 mouth [place] 00 :00 every 12 Medical (twelve) Branch hours for 90 days. dofetilide 2022- Yes [id number] 250ug Take 1 Univers 250 mcg 2-27 05-29 capsule by ity o f capsule 00:00: 04:59 mouth [place] 00 :00 every 12 Medical (twelve) Branch hours for 90 days. dofetilide 2022- Yes [id number] 250ug Take 1 Univers 250 mcg 2-27 05-29 capsule by ity o f capsule 00:00: 04:59 mouth [place] 00 :00 every 12 Medical (twelve) Branch hours for 90 days. dofetilide 2022- Yes [id number] 250ug Take 1 Univers 250 mcg 2-27 05-29 capsule by ity o f capsule 00:00: 04:59 mouth [place] 00 :00 every 12 Medical (twelve) Branch hours for 90 days. dofetilide 2022- Yes [id number] 250ug Take 1 Univers 250 mcg 2-27 05-29 capsule by ity o f capsule 00:00: 04:59 mouth [place] 00 :00 every 12 Medical (twelve) Branch hours for 90 days. enoxaparin 2022- Yes [id number] 40mg inject 0.4 Univers 40 mg/0.4 2- 03-05 mL under ity o f mL 00:00: 05:59 the skin [place] injection 00 :00 in the [facility] Branch for 5 days. enoxaparin 2022- Yes [id number] 40mg inject 0.4 Univers 40 mg/0.4 2-27 03-05 mL under ity o f mL 00:00: 05:59 the skin [place] injection 00 :00 in the [facility] for 5 days. enoxaparin 2022- Yes [id number] 40mg inject 0.4 Univers 40 mg/0.4 2- 03-05 mL under ity o f mL 00:00: 05:59 the skin [place] injection 00 :00 in the [facility] for 5 days. enoxaparin 2022- No [id number] 40mg inject 0.4 Univers 40 mg/0.4 2- 03-05 mL under ity o f mL 00:00: 05:59 the skin [place] injection 00 :00 in the [facility] for 5 days. enoxaparin 2022- No [id number] 40mg inject 0.4 Univers 40 mg/0.4 06-11 03-05 mL under ity o f mL 00:00: 05:59 the skin [place] injection 00 :00 in the [facility] for 5 days. enoxaparin 2022- No [id number] 40mg inject 0.4 Univers 40 mg/0.4 06-11 03-05 mL under ity o f mL 00:00: 05:59 the skin [place] injection 00 :00 in the [facility] for 5 days. enoxaparin 2022- No [id number] 40mg inject 0.4 Univers 40 mg/0.4 - 03-05 mL under ity o f mL 00:00: 05:59 the skin [place] injection 00 :00 in the [facility] for 5 days. dofetilide 2022- Yes [id number] 250ug Take 1 Univers 250 mcg 06-11- capsule by ity o f capsule 00:00: 05:59 mouth [place] 00 :00 every 12 Medical (twelve) Branch hours for 2 days. warfarin 2 2022- Yes [id number] 2mg Take 1 Univers mg tablet 06-11 tablet by ity of 00:00: 05:59 mouth [place] 00 :00 every Medical evening Branch for 2 days. dofetilide 2022- Yes [id number] 250ug Take 1 Univers 250 mcg 06-11 capsule by ity o f capsule 00:00: 05:59 mouth [place] 00 :00 every 12 Medical (twelve) Branch hours for 2 days. warfarin 2 2022- Yes [id number] 2mg Take 1 Univers mg tablet 06-11 tablet by ity of 00:00: 05:59 mouth [place] 00 :00 every Medical evening Branch for 2 days. warfarin 2 2022- Yes [id number] 2mg Take 1 Univers mg tablet 06-11 tablet by ity of 00:00: 05:59 mouth [place] 00 :00 every Medical evening Branch for 2 days. warfarin 2 2022- No [id number] 2mg Take 1 Univers mg tablet 06-11 tablet by ity of 00:00: 05:59 mouth [place] 00 :00 every Medical evening Branch for 2 days. warfarin 2 2022- No [id number] 2mg Take 1 Univers mg tablet 06-11 tablet by ity of 00:00: 05:59 mouth [place] 00 :00 every Medical evening Branch for 2 days. warfarin 2 2022- No [id number] 2mg Take 1 Univers mg tablet 06-11 tablet by ity of 00:00: 05:59 mouth [place] 00 :00 every Medical evening Branch for 2 days. warfarin 2 2022- No [id number] 2mg Take 1 Univers mg tablet 06-11 tablet by ity of 00:00: 05:59 mouth [place] 00 :00 every Medical evening Branch for 2 days. enoxaparin 2022- Yes [id number] 40mg inject 0.4 Univers 40 mg/0.4 06-11-02 mL under ity o f mL 00:00: 05:59 the skin [place] injection 00 :00 in the Medical morning Branch for 2 days. enoxaparin 2022- Yes [id number] 40mg inject 0.4 Univers 40 mg/0.4 06-11-02 mL under ity o f mL 00:00: 05:59 the skin [place] injection 00 :00 in the [facility] Branch for 2 days. dofetilide 2022- Yes [id number] 250ug Take 1 Univers 250 mcg 06-11- capsule by ity o f capsule 00:00: 05:59 mouth [place] 00 :00 every 12 [facility]) Branch hours for 2 days. enoxaparin 2022- Yes [id number] 40mg inject 0.4 Univers 40 mg/0.4 06-11- mL under ity o f mL 00:00: 05:59 the skin [place] injection 00 :00 in the [facility] Branch for 2 days. dofetilide 2022- No [id number] 250ug Take 1 Univers 250 mcg 06-11- capsule by ity o f capsule 00:00: 05:59 mouth [place] 00 :00 every 12 [facility] hours for 2 days. enoxaparin 2022- No [id number] 40mg inject 0.4 Univers 40 mg/0.4 06-11- mL under ity o f mL 00:00: 05:59 the skin [place] injection 00 :00 in the [facility] for 2 days. dofetilide 2022- No [id number] 250ug Take 1 Univers 250 mcg 06-11 capsule by ity o f capsule 00:00: 05:59 mouth [place] 00 :00 every 12 [facility] hours for 2 days. enoxaparin 2022- No [id number] 40mg inject 0.4 Univers 40 mg/0.4 06-11- mL under ity o f mL 00:00: 05:59 the skin [place] injection 00 :00 in the [facility] Branch for 2 days. dofetilide 2022- No [id number] 250ug Take 1 Univers 250 mcg 06-11- capsule by ity o f capsule 00:00: 05:59 mouth [place] 00 :00 every 12 [facility]) [place] hours for 2 days. enoxaparin 2022- No [id number] 40mg inject 0.4 Univers 40 mg/0.4 06-11 mL under ity o f mL 00:00: 05:59 the skin [place] injection 00 :00 in the Medical morning Branch for 2 days. dofetilide 2022- No [id number] 250ug Take 1 Univers 250 mcg 06-11 capsule by ity o f capsule 00:00: 05:59 mouth [place] 00 :00 every 12 Medical (twelve) Branch hours for 2 days. enoxaparin No [id number] 40mg inject 0.4 Univers 40 mg/0.4 06-11 [...] can be selected): Atrial fibrillati on/flutter magnesium No 800mg 800 mg, Uni vers oxide 06-10 Oral, ity of (MAG-OX 14:15: 14:30 ONCE, 1 [place] 400) tablet 00 :00 dose, On Medi tyrone 800 mg [facility] 06/10/22 at 0815, Routine magnesium No 2g 2 g, IV Univ ers sulfate in 06-10 Piggyback, it y of water 2 09:45: 10:41 Administer Babak as gram/50 mL 00 :00 over 60 Medica l (4 %) Minutes, Branch infusion 2 ONCE, 1 g dose, On 06/10/22 at 0345, Routine methocarbam Yes 500mg 500 mg, Un chong oL 06-10 Oral, BID, ity of (ROBAXIN) 02:00: First dose [place] tablet 500 00 on Sat Medical mg 06/09/22 at Branch 2000, Until Discontinu ed, Routine gabapentin Yes 200mg 200 mg, Uni vers (NEURONTIN) 2-25 Oral, TID, it y of capsule 200 20:00: First dose [place] mg 00 on Sat Medical 06/09/22 at Branch 1400, Until Discontinu ed, Routine acetaminoph Yes 500mg 500 mg, Un chong en 2-25 Oral, TID, ity of (TYLENOL) 20:00: First dose [place] tablet 500 00 (after Medical mg last Branch modificati on) on 06/09/22 at 1400, Until Discontinu ed, Routine heparin 0 2022- No 80U/kg 3,560 Univer s 1000 2-25 02-25 Units (80 ity of unit/mL 16:30: 17:49 Units/kg [place] injection 00 :00 ?44.5 kg), Medi tyrone Soln 3,560 IV Push, Branc h Units ONCE, 1 dose, On 06/09/22 at 1030, Routine heparin Yes 0U/h 0-2,350 Univers 25,000 2-25 Units/hr [...] INITIAL INFUSION RATE.&nbsp ; _ &nb sp;[place] [facility] ONLY &nbs p; - aPTT < 35: & nbsp;Bolus 5000 units, increase rate 300 units/hr&n bsp; - aPTT 35-44:&nbs p; Nate ashutosh 3000 units, increase rate 200 units/hr&n bsp; - aPTT 45-54:&nbs p; In crease rate 100 units/hr&n bsp; - aPTT 55-85:&nbs p; NO CHANGE&nbs p; - aPTT 86-95:&nbs p; De [...] r> heparin Yes 3000U FOR Univers (1,000 06-09 REBOLUSING ity of unit/mL, 10 16:27: , Starting [place] mL vial) 12 on [facility] Medical 06/09/22 at Branch 1027, Until Discontinu ed, Routine
Dosing based on aPTT testing parameters (refer to continuous heparin drip order)
magnesium 2022- No 400mg 400 mg, Uni vers oxide 06-09 Oral, ity of (MAG-OX 15:00: 15:14 ONCE, 1 [place] 400) tablet 00 :00 dose, On Medi tyrone 400 mg [place] 06/09/22 at 0900, Routine FENTanyl PF Yes 25ug 25 mcg, Uni vers (SUBLIMAZE 06-08 Slow IV ity of (PF)) 17:36: Push, [...] 06/07/22 at 2000, Until Discontinu ed, Routine
[employer] team member approving Restricted medication : MARIIA [...] [place] mg 00 First dose Medical on [facility] Branch 06/07/22 at 0900, Until Discontinu ed, Routine furosemide 2022- No 40mg 40 mg, Univ ers (LASIX) 06-07 Oral, ity of tablet 40 15:00: 20:50 DAILY, [place] mg 00 :38 First dose Medical on [place] [facility] 06/07/22 at 0900, Until Discontinu ed, Routine aspirin 2022- No 81mg 81 mg, Univers chewable 06-07 Oral, ity of tablet 81 15:00: 15:25 DAILY, [place] mg 00 :24 First dose Medical on [place] [facility] 06/07/22 at 0900, Until Discontinu ed, Routine HYDROcodone 0 Yes 1{tbl} 1 tablet, Univers -acetaminop 06-07 Oral, ity of hen (NORCO) 14:58: Q6HPRN, [place] 10-325 mg 30 Starting Medica l tablet 1 on [place] Branch tablet 06/07/22 at 0858, Until Discontinu ed, Routine, Pain (scale 7-10), Pain (scale 4-6) gabapentin 2022- No 300mg 300 mg, [facility] [place] (NEURONTIN) 06-07 Oral, ity of capsule 300 07:45: 07:14 ONCE, 1 [place] mg 00 :00 dose, On Medical [place] [facility] 06/07/22 at 0145, Routine KCL 2022- No 20meq 20 mEq, Univers (KLOR-CON 06-07 Oral, ity of M20) tablet 05:00: 06:48 ONCE, 1 [place] 20 mEq 00 :00 dose, On Medical [facility] Branch 06/06/22 at 2315, Routine magnesium 2022- No 2g 2 g, IV Univ ers sulfate in 06-07 Piggyback, it y of water 2 05:00: 08:15 Administer [place] gram/50 mL 00 :00 over 60 Medica l (4 %) Minutes, Branch infusion 2 ONCE, 1 g dose, On [facility] 06/06/22 at 2315, Routine atorvastati Yes 80mg 80 mg, Univ ers n (LIPITOR) 06-07 Oral, QHS, it y of tablet 80 03:00: First dose [place] mg 00 on [facility] Medical 06/06/22 at Branch 2100, Until Discontinu ed, Routine dofetilide 2022- No 125ug 125 mcg, U nivers (TIKOSYN) 06-07 Oral, ity of capsule 125 02:00: 16:35 Q12H, [place] mcg 00 :11 First dose Medical on [facility] 06/06/22 at 2000, Until Discontinu ed, Routine
[employer] team member approving Restricted medication : MARIIA CARDONA lidocaine Yes 1{patch 1 Patch, U nivers [...] tablet 1 mg 01:00: 16:41 DAILY AT [place] 00 :04 1700, Medical First dose [...] at 0837, Routine, Pain (scale 7-10) Fesoterodin 0 Yes 1 tablet [place] e (TOVIAZ) 06-06 ity of 4 mg tablet 18:17: [place] 48 Medical Branch HYDROcodone 0 Yes 1 tablet [place] -acetaminop 06-06 as needed ity of hen 7.5-325 18:17: [place] mg per 48 Medical tablet Branch furosemide 0 2023- Yes 20mg QD Take [address] [facility] (LASIX) 20 05-28 tablet (20 Yady kes MG tablet 00:00: 23:59 mg total) Me dical 00 :00 by mouth Center daily. furosemide 0 2023- Yes 20mg QD Take 1 [facility] [...] 16:44: daily. Medi tyrone MG tablet 11 Center warfarin Yes 1mg QD Take [address] [facility] (COUMADIN, 2-12 by mouth [facility]) 1 16:44: daily. Medi tyrone MG tablet 11 Center warfarin 0 Yes 1mg QD Take [address] [facility] (COUMADIN, 2-12 by mouth [facility]) 1 16:44: daily. Medi tyrone MG tablet 11 Center warfarin Yes 1mg QD Take [address] [facility] (COUMADIN, 2-12 by mouth [facility]) 1 16:44: daily. Medi tyrone MG tablet 11 Center amiodarone Yes Take 1 tab C HI [...] QD Take [address] [facility] n (LIPITOR) 05-27-12 tablet (80 L u[facility] 80 MG 00:00: [...] 12.5mg Q.5D Take 0.[address] [facility] tartrate 05-27-12 tablets [facility] (LOPRESSOR) 00:00: 23:59 (12.5 mg M edical 25 MG 00 :00 total) by Center tablet mouth 2 (two) times daily. atorvastati 2023- Yes 80mg QD Take [address] [facility] n (LIPITOR) 2-12 tablet (80 L u[facility] 80 MG 00:00: 23:59 mg total) Medica l tablet 00 :00 by mouth Center nightly. metoprolol 0 2023- Yes 12.5mg Q.5D Take 0.[address] [facility] tartrate 05-27- tablets [facility] (LOPRESSOR) 00:00: 23:59 (12.5 mg M edical 25 MG 00 :00 total) by Center tablet mouth 2 (two) times daily. metoprolol 0 2022- No 1 tablet [place] tartrate 25 05-27 with food it y of mg tablet 00:00: 00:00 [place] 00 :00 Medical Branch metoprolol 0 2022- No 1 tablet [place] tartrate 25 05-27 with food it y of mg tablet 00:00: 00:00 [place] 00 :00 [facility] Branch metoprolol 0 2022- No 1 tablet [place] tartrate 25 05-27 with food it y of mg tablet 00:00: 00:00 [place] 00 :00 [facility] Branch warfarin 0 Yes 1mg QD Take [address] [facility] (COUMADIN, 2-04 by mouth [facility]) 1 13:52: daily. Medi tyrone MG tablet 50 [place] warfarin 0 Yes 1mg QD Take [address] [facility] (COUMADIN, 2-04 by mouth [facility]) 1 13:52: daily. Medi tyrone MG tablet 50 [place] warfarin 0 Yes 1mg QD Take [address] [facility] (COUMADIN, 2-04 by mouth [facility]) 1 13:52: daily. Medi tyrone MG tablet 50 [place] warfarin 0 Yes 1mg QD Take [address] [facility] (COUMADIN, 2-04 by mouth [facility]) 1 13:52: daily. Medi tyrone MG tablet 50 Center alendronate 2022-0 Yes Univer s 70 mg 1-26 ity of tablet 00:00: [facility] zolpidem 10 2022-0 Yes 1 tablet [place] mg tablet 1-26 at bedtime ity of 00:00: as needed [facility] alendronate 2022-0 Yes Univer s 70 mg 1-26 ity of tablet 00:00: [facility] zolpidem 10 2022-0 Yes 1 tablet Un [...] 70 mg 1-26 ity of tablet 00:00: [place] [facility] zolpidem 10 2022-0 Yes 1 tablet [place] mg tablet 1-26 at bedtime ity of 00:00: as needed [place] [facility] alendronate 2022-0 Yes Univer s 70 mg 1-26 ity of tablet 00:00: [place] [facility] zolpidem 10 2022-0 Yes 1 tablet [place] mg tablet 1-26 at bedtime ity of 00:00: as needed Medical Branch alendronate 2022-0 Yes Univer s 70 mg 1-26 ity of tablet 00:00: [place] [facility] zolpidem 10 2022-0 Yes 1 tablet [place] mg tablet 1-26 at bedtime ity of 00:00: as needed [place] [facility] alendronate 2022-0 Yes Univer s 70 mg 1-26 ity of tablet 00:00: [place] [facility] zolpidem 10 2022-0 Yes 1 tablet [place] mg tablet 1-26 at bedtime ity of 00:00: as needed Medical Branch alendronate 2022-0 Yes Univer s 70 mg 1-26 ity of tablet 00:00: [place] [facility] zolpidem 10 2022-0 Yes 1 tablet [place] mg tablet 1-26 at bedtime ity of 00:00: as needed Medical Branch alendronate 2022-0 Yes Univer s 70 mg 1-26 ity of tablet 00:00: [place] [facility] zolpidem 10 2022-0 Yes 1 tablet [place] mg tablet 1-26 at bedtime ity of 00:00: as needed [place] [facility] alendronate 2022-0 Yes Univer s 70 mg 1-26 ity of tablet 00:00: [place] [facility] zolpidem 10 2023-0 Yes 1 tablet [place] mg tablet 1-26 at bedtime ity of 00:00: as needed Medical Branch alendronate 2022-0 Yes Univer s 70 mg 1-26 ity of tablet 00:00: [place] [facility] zolpidem 10 2022-0 Yes 1 tablet [place] mg tablet 1-26 at bedtime ity of 00:00: as needed Medical Branch alendronate 2022-0 Yes Univer s 70 mg 1-26 ity of tablet 00:00: [place] [facility] zolpidem 10 0 Yes 1 tablet [place] mg tablet 1-26 at bedtime ity of 00:00: as needed [place] [facility] alendronate 2022-0 Yes Univer s 70 mg 1-26 ity of tablet 00:00: [place] [address] Medical Branch zolpidem 10 0 Yes 1 tablet [place] mg tablet 1-26 at bedtime ity of 00:00: as needed [place] [facility] alendronate 2022-0 Yes Univer s 70 mg 1-26 ity of tablet 00:00: [place] [address] Medical Branch zolpidem 10 2022-0 Yes 1 tablet [place] mg tablet 1-26 at bedtime ity of 00:00: as needed [place] [facility] alendronate 2022-0 Yes Univer s 70 mg 1-26 ity of tablet 00:00: [place] [address] Medical Branch zolpidem 10 2022-0 Yes 1 tablet [place] mg tablet 1-26 at bedtime ity of 00:00: as needed [place] [facility] alendronate 2022-0 Yes Univer s 70 mg 1-26 ity of tablet 00:00: [place] [address] Medical Branch zolpidem 10 2022-0 Yes 1 tablet [place] mg tablet 1-26 at bedtime ity of 00:00: as needed [place] [facility] alendronate 2022-0 Yes Univer s 70 mg 1-26 ity of tablet 00:00: [place] [address] Medical Branch zolpidem 10 2022-0 Yes 1 tablet [place] mg tablet 1-26 at bedtime ity of 00:00: as needed [place] [facility] alendronate 2022-0 Yes Univer s 70 mg 1-26 ity of tablet 00:00: [place] [address] Medical Branch zolpidem 10 2022-0 Yes 1 tablet [place] mg tablet 1-26 at bedtime ity of 00:00: as needed Medical Branch alendronate 2022-0 Yes Univer s 70 mg 1-26 ity of tablet 00:00: [place] [facility] zolpidem 10 2022-0 Yes 1 tablet [place] mg tablet 1-26 at bedtime ity of 00:00: as needed [place] [facility] alendronate 2022-0 Yes Univer s 70 mg 1-26 ity of tablet 00:00: [place] [facility] zolpidem 10 2022-0 Yes 1 tablet [place] mg tablet 1-26 at bedtime ity of 00:00: as needed [place] [facility] alendronate 2022-0 Yes Univer s 70 mg 1-26 ity of tablet 00:00: [place] [address] Medical Branch zolpidem 10 2022-0 Yes 1 tablet [place] mg tablet 1-26 at bedtime ity of 00:00: as needed [place] [facility] Branch alendronate 2022-0 Yes Univer s 70 mg 1-26 ity of tablet 00:00: [place] [address] Medical Branch zolpidem 10 2022-0 Yes 1 tablet [place] mg tablet 1-26 at bedtime ity of 00:00: as needed [place] [facility] alendronate 2022-0 Yes Univer s 70 mg 1-26 ity of tablet 00:00: [place] [address] Medical Branch zolpidem 10 2022-0 Yes 1 tablet [place] mg tablet 1-26 at bedtime ity of 00:00: as needed [place] [facility] Branch alendronate 2022-0 Yes Univer s 70 mg 1-26 ity of tablet 00:00: [place] [address] Medical Branch zolpidem 10 2022-0 Yes 1 tablet [place] mg tablet 1-26 at bedtime ity of 00:00: as needed [place] [facility] alendronate 2022-0 Yes Univer s 70 mg 1-26 ity of tablet 00:00: [place] [address] Medical Branch zolpidem 10 2022-0 Yes 1 tablet [place] mg tablet 1-26 at bedtime ity of 00:00: as needed [place] [facility] Branch alendronate 2022-0 Yes Univer s 70 mg 1-26 ity of tablet 00:00: [place] [facility] Branch zolpidem 10 2022- Yes 1 tablet [place] mg tablet 1-26 at bedtime ity of 00:00: as needed [address] Branch alendronate 2022- Yes Univer s 70 mg 1-26 ity of tablet 00:00: [address] Branch zolpidem 10 2022-0 Yes 1 tablet [place] mg tablet 1-26 at bedtime ity of 00:00: as needed [address] Branch metoprolol 2022- No [id number] 25mg Take 1 [facility] succinate 1-26 04-27 tablet by ity of XL (TOPROL 00:00: 04:59 mouth in [place] XL) 25 mg 00 :00 the Medical 24 hr morning Branch tablet for 90 days. metoprolol 2022- No [id number] 25mg Take 1 [facility] succinate 1-26 04-27 tablet by ity of XL (TOPROL 00:00: 04:59 mouth in [place] XL) 25 mg 00 :00 the Medical 24 hr morning Branch tablet for 90 days. metoprolol 2022- No [id number] 25mg Take 1 [facility] succinate 1-26 04-27 tablet by ity of XL (TOPROL 00:00: 04:59 mouth in [place] XL) 25 mg 00 :00 the Medical 24 hr morning Branch tablet for 90 days. metoprolol 2022- No [id number] 25mg Take 1 [facility] succinate 1-26 04-27 tablet by ity of XL (TOPROL 00:00: 04:59 mouth in [place] XL) 25 mg 00 :00 the Medical 24 hr morning Branch tablet for 90 days. metoprolol 2022- No [id number] 25mg Take 1 [facility] succinate 1-26 04-27 tablet by ity of XL (TOPROL 00:00: 04:59 mouth in [place] XL) 25 mg 00 :00 the Medical 24 hr morning Branch tablet for 90 days. metoprolol 2022- No [id number] 25mg Take 1 [facility] succinate 1-26 04-27 tablet by ity of XL (TOPROL 00:00: 04:59 mouth in [place] XL) 25 mg 00 :00 the Medical 24 hr morning Branch tablet for 90 days. metoprolol 2022- No [id number] 25mg Take 1 [facility] succinate 05-10- tablet by ity of XL (TOPROL 00:00: 00:00 mouth in [place] XL) 25 mg 00 :00 the Medical 24 hr morning Branch tablet for 90 days. metoprolol 2022- No [id number] 25mg Take 1 [facility] succinate 05-10- tablet by ity of XL (TOPROL 00:00: 00:00 mouth in [place] XL) 25 mg 00 :00 the Medical 24 hr morning Branch tablet for 90 days. metoprolol 2022- No [id number] 25mg Take 1 [facility] succinate 05-10- tablet by ity of XL (TOPROL 00:00: 00:00 mouth in [place] XL) 25 mg 00 :00 the Medical 24 hr morning Branch tablet for 90 days. metoprolol 2022- No [id number] 25mg Take 1 [facility] succinate 05-10- tablet by ity of XL (TOPROL 00:00: 00:00 mouth in [place] XL) 25 mg 00 :00 the Medical 24 hr morning Branch tablet for 90 days. metoprolol 2022- No [id number] 25mg Take 1 [facility] succinate 05-10- tablet by ity of XL (TOPROL 00:00: 00:00 mouth in [place] XL) 25 mg 00 :00 the Medical 24 hr morning Branch tablet for 90 days. Diclofenac Yes Univers Sodium 1 % 1-25 ity of gel 00:00: [place] 00 Medical Branch Diclofenac 2022-0 3- No Univer s Sodium 1 % 1-25 -27 ity of gel 00:00: 00:00 [place] 00 :00 Medical Branch Diclofenac 2022-0 2023- No Univer s Sodium 1 % 1-25 -27 ity of gel 00:00: 00:00 [place] 00 :00 Medical Branch Diclofenac 2022-0 3- No Univer s Sodium 1 % 1-25 -27 ity of gel 00:00: 00:00 [place] 00 :00 Medical Branch Diclofenac 2022-0 2023- No Univer s Sodium 1 % 1-25 -27 ity of gel 00:00: 00:00 00 :00 Medical Branch Diclofenac 3-0 2022- No Univer s Sodium 1 % 05-09 ity of gel 00:00: 00:00 00 :00 Medical Branch ezetimibe 2021-04 Yes 10mg Take 1 Univer s (ZETIA) 10 2-19 tablet by ity of mg tablet 00:00: mouth [place] 00 the Medical morning. Branch metoprolol 2021-04 Yes [id number] 25mg Take 1 U nivers tartrate 25 2-19 tablet by ity of mg tablet 00:00: mouth [place] 00 the Medical morning Branch and 1 tablet in the evening. ezetimibe 2021-04 Yes 10mg Take 1 Univer s (ZETIA) 10 2-19 tablet by ity of mg tablet 00:00: mouth [place] 00 the Medical morning. Branch metoprolol 2021-04 Yes [id number] 25mg Take 1 U nivers tartrate 25 2-19 tablet by ity of mg tablet 00:00: mouth [place] 00 the Medical morning Branch and 1 tablet in the evening. ezetimibe 2021-04 Yes 10mg Take 1 Univer s (ZETIA) 10 2-19 tablet by ity of mg tablet 00:00: mouth [place] 00 the Medical morning. Branch metoprolol 2021-04 Yes [id number] 25mg Take 1 U nivers tartrate 25 2-19 tablet by ity of mg tablet 00:00: mouth [place] 00 the Medical morning Branch and 1 tablet in the evening. ezetimibe 2021-04 Yes 10mg Take 1 Univer s (ZETIA) 10 2-19 tablet by ity of mg tablet 00:00: mouth [place] 00 the Medical morning. Branch metoprolol 2021-04 Yes [id number] 25mg Take 1 U nivers tartrate 25 2-19 tablet by ity of mg tablet 00:00: mouth [place] 00 the Medical morning Branch and 1 tablet in the evening. ezetimibe 2021-04 Yes 10mg Take 1 Univer s (ZETIA) 10 2-19 tablet by ity of mg tablet 00:00: mouth [place] 00 the Medical morning. Branch metoprolol 2021-04 Yes [id number] 25mg Take 1 U nivers tartrate 25 2-19 tablet by ity of mg tablet 00:00: mouth [place] 00 the Medical morning Branch and 1 tablet in the evening. ezetimibe 2021-04 Yes 10mg Take 1 Univer s (ZETIA) 10 2-19 tablet by ity of mg tablet 00:00: mouth [place] 00 the Medical morning. Branch metoprolol 2021-04 Yes [id number] 25mg Take 1 U nivers tartrate 25 2-19 tablet by ity of mg tablet 00:00: mouth [place] 00 the Medical morning Branch and 1 tablet in the evening. ezetimibe 2021-04 Yes 10mg Take 1 Univer s (ZETIA) 10 2-19 tablet by ity of mg tablet 00:00: mouth [place] 00 the Medical morning. Branch metoprolol 2021-04 Yes [id number] 25mg Take 1 U nivers tartrate 25 [...] 00 :00 the Medical morning. Branch metoprolol 2021-2022- No [id number] 25mg Take 1 Univers tartrate 25 2-03 05-26 tablet by it y of mg tablet 00:00: 00:00 mouth in [place] 00 :00 the Medical morning Branch and 1 tablet in the evening. metoprolol 2021-2022- No [id number] 25mg Take 1 [facility] tartrate 25 2-19 -26 tablet by it y of mg tablet 00:00: 00:00 mouth in [place] 00 :00 the Medical morning Branch and 1 tablet in the evening. warfarin 2021-04 Yes [id number] 1mg Take 1 Univers mg tablet 2-01 tablet by ity o f 00:00: mouth [place] 00 every Medical evening. Branch Alternate take 1mg x3 days, then 2mg x 4 days warfarin 2021-04 Yes [id number] 1mg Take 1 Univers mg tablet 2-01 tablet by ity o f 00:00: mouth [place] 00 every Medical evening. Branch Alternate take 1mg x3 days, then 2mg x 4 days dofetilide 2021-04 Yes [id number] 125ug Take 1 [facility] 125 mcg 2-01 capsule by ity of capsule 00:00: mouth [place] 00 every 12 Medical (twelve) Branch hours. warfarin 2021-04 Yes [id number] 1mg Take 1 [facility] mg tablet 2-01 tablet by ity o f 00:00: mouth [place] 00 every Medical evening. Branch Alternate take 1mg x3 days, then 2mg x 4 days dofetilide 2021-04 Yes [id number] 125ug Take 1 [facility] 125 mcg 2-01 capsule by ity of capsule 00:00: mouth [place] 00 every 12 Medical (twelve) Branch hours. warfarin 2021-04 Yes [id number] 1mg Take 1 [facility] mg tablet 2-01 tablet by ity o f 00:00: mouth [place] 00 every Medical evening. Branch Alternate take 1mg x3 days, then 2mg x 4 days dofetilide 2021-04 Yes [id number] 125ug Take 1 [facility] 125 mcg 2-01 capsule by ity of capsule 00:00: mouth [place] 00 every 12 Medical (twelve) Branch hours. warfarin 2021-04 Yes [id number] 1mg Take 1 [facility] mg tablet 2-01 tablet by ity o f 00:00: mouth [place] 00 every Medical evening. Branch Alternate take 1mg x3 days, then 2mg x 4 days dofetilide 2021-04 Yes [id number] 125ug Take 1 [facility] 125 mcg 2-01 capsule by ity of capsule 00:00: mouth [place] 00 every 12 Medical (twelve) Branch hours. warfarin 2021-04 Yes [id number] 1mg Take 1 Univers mg tablet 2-01 tablet by ity o f 00:00: mouth [place] 00 every Medical evening. Branch Alternate take 1mg x3 days, then 2mg x 4 days dofetilide 2021-04 Yes [id number] 125ug Take 1 [facility] 125 mcg 2-01 capsule by ity of capsule 00:00: mouth [place] 00 every 12 Medical (twelve) Branch hours. warfarin 2021-04 Yes [id number] 1mg Take 1 Univers mg tablet 2-01 tablet by ity o f 00:00: mouth [place] 00 every Medical evening. Branch Alternate take 1mg x3 days, then 2mg x 4 days dofetilide 2021-04 Yes [id number] 125ug Take 1 [facility] 125 mcg 2-01 capsule by ity of capsule 00:00: mouth [place] 00 every 12 Medical (twelve) Branch hours. warfarin 2021-04 Yes [id number] 1mg Take 1 Univers mg tablet 2-01 tablet by ity o f 00:00: mouth [place] 00 every Medical evening. Branch Alternate take 1mg x3 days, then 2mg x 4 days dofetilide 2021-04 Yes [id number] 125ug Take 1 [facility] 125 mcg 2-01 capsule by ity of capsule 00:00: mouth [place] 00 every 12 Medical (twelve) Branch hours. warfarin 2021-04 Yes [id number] 1mg Take 1 [facility] mg tablet 2-01 tablet by ity o f 00:00: mouth [place] 00 every Medical evening. Branch Alternate take 1mg x3 days, then 2mg x 4 days dofetilide 2021-04 Yes [id number] 125ug Take 1 [facility] 125 mcg 2-01 capsule by ity of capsule 00:00: mouth [place] 00 every 12 Medical (twelve) Branch hours. warfarin 2021-04 Yes [id number] 1mg Take 1 [facility] mg tablet 2-01 tablet by ity o f 00:00: mouth [place] 00 every Medical evening. Branch Alternate take 1mg x3 days, then 2mg x 4 days dofetilide 2021-04 Yes [id number] 125ug Take 1 [facility] 125 mcg 2-01 capsule by ity of capsule 00:00: mouth [place] 00 every 12 Medical (twelve) Branch hours. warfarin 2021-04 Yes [id number] 1mg Take 1 [facility] mg tablet 2-01 tablet by ity o f 00:00: mouth [place] 00 every Medical evening. Branch Alternate take 1mg x3 days, then 2mg x 4 days dofetilide 2021-04 Yes [id number] 125ug Take 1 [facility] 125 mcg 2-01 capsule by ity of capsule 00:00: mouth [place] 00 every 12 Medical (twelve) Branch hours. warfarin 2021-04 Yes [id number] 1mg Take 1 [facility] mg tablet 2-01 tablet by ity o f 00:00: mouth [place] 00 every Medical evening. Branch Alternate take 1mg x3 days, then 2mg x 4 days dofetilide 2021-04 Yes [id number] 125ug Take 1 [facility] 125 mcg 2-01 capsule by ity of capsule 00:00: mouth [place] 00 every 12 Medical (twelve) Branch hours. warfarin 2021-04 Yes [id number] 1mg Take 1 Univers mg tablet 2-01 tablet by ity o f 00:00: mouth [place] 00 every Medical evening. Branch Alternate take 1mg x3 days, then 2mg x 4 days dofetilide 2021-04 Yes [id number] 125ug Take 1 Univers 125 mcg 2-01 capsule by ity of capsule 00:00: mouth [place] 00 every 12 Medical (twelve) Branch hours. warfarin 2021-04 Yes [id number] 1mg Take 1 Univers mg tablet 2-01 tablet by ity o f 00:00: mouth [place] 00 every Medical evening. Branch Alternate take 1mg x3 days, then 2mg x 4 days dofetilide 2021-04 Yes [id number] 125ug Take 1 Univers 125 mcg 2-01 capsule by ity of capsule 00:00: mouth [place] 00 every 12 Medical (twelve) Branch hours. warfarin 2021-04 Yes [id number] 1mg Take 1 Univers mg tablet 2-01 tablet by ity o f 00:00: mouth [place] 00 every Medical evening. Branch Alternate take 1mg x3 days, then 2mg x 4 days dofetilide 2021-04 Yes [id number] 125ug Take 1 [facility] 125 mcg 2-01 capsule by ity of capsule 00:00: mouth [place] 00 every 12 Medical (twelve) Branch hours. warfarin 2021-04 Yes [id number] 1mg Take 1 Univers mg tablet 2-01 tablet by ity o f 00:00: mouth [place] 00 every Medical evening. Branch Alternate take 1mg x3 days, then 2mg x 4 days dofetilide 2021-04 Yes [id number] 125ug Take 1 Univers 125 mcg 05-16 capsule by ity of capsule 00:00: mouth [place] 00 every 12 Medical (twelve) Branch hours. warfarin 1 2021-04- No [id number] 1mg Take 1 Univers mg tablet 05-16 tablet by ity of 00:00: 00:00 mouth [place] 00 :00 every Medical evening. Branch Alternate take 1mg x3 days, then 2mg x 4 days dofetilide 2021-04- No [id number] 125ug Take 1 Univers 125 mcg 05-16 capsule by ity o f capsule 00:00: 00:00 mouth [place] 00 :00 every 12 Medical (twelve) Branch hours. warfarin 1 2021-04- No [id number] 1mg Take 1 Univers mg tablet 05-16 tablet by ity of 00:00: 00:00 mouth [place] 00 :00 every Medical evening. Branch Alternate take 1mg x3 days, then 2mg x 4 days dofetilide 2021-04- No [id number] 125ug Take 1 Univers 125 mcg 05-16 capsule by ity o f capsule 00:00: 00:00 mouth [place] 00 :00 every 12 Medical (twelve) Branch hours. warfarin 1 2021-04- No [id number] 1mg Take 1 Univers mg tablet 05-16 tablet by ity of 00:00: 00:00 mouth [place] 00 :00 every Medical evening. Branch Alternate take 1mg x3 days, then 2mg x 4 days dofetilide 2021-04- No [id number] 125ug Take 1 Univers 125 mcg 05-16 capsule by ity o f capsule 00:00: 00:00 mouth [place] 00 :00 every 12 Medical (twelve) Branch hours. warfarin 1 2021-04- No [id number] 1mg Take 1 [facility] mg tablet 05-16 tablet by ity of 00:00: 00:00 mouth [place] 00 :00 every Medical evening. Branch Alternate take 1mg x3 days, then 2mg x 4 days dofetilide 2021-04- No [id number] 125ug Take 1 Univers 125 mcg 05-16 capsule by ity o f capsule 00:00: 00:00 mouth [place] 00 :00 every 12 Medical (twelve) Branch hours. warfarin 2021-04- No [id number] 1mg Take 1 [facility] mg tablet 05-16 tablet by ity of 00:00: 00:00 mouth [place] 00 :00 every Medical evening. Branch Alternate take 1mg x3 days, then 2mg x 4 days dofetilide 2021-04- No [id number] 125ug Take 1 Univers 125 mcg 05-16 capsule by ity o f capsule 00:00: 00:00 mouth [place] 00 :00 every 12 Medical (twelve) Branch hours. warfarin 2021-04 Yes [id number] 1mg Take 1 [facility] mg tablet 1-01 tablet by ity o f 00:00: mouth [place] 00 every Medical evening. Branch Alternate take 1mg x4 days, then 2mg x 3 days warfarin 2021-04 Yes [id number] 1mg Take 1 [facility] mg tablet 1- tablet by ity o f 00:00: mouth [place] 00 every Medical evening. Branch Alternate take 1mg x4 days, then 2mg x 3 days warfarin 2021-04 Yes [id number] 1mg Take 1 [facility] mg tablet 1-01 tablet by ity o f 00:00: mouth [place] 00 every Medical evening. Branch Alternate take 1mg x4 days, then 2mg x 3 days warfarin 2021-04 Yes [id number] 1mg Take 1 [facility] mg tablet 1-01 tablet by ity o f 00:00: mouth [place] 00 every Medical evening. Branch Alternate take 1mg x4 days, then 2mg x 3 days warfarin 2021-04 Yes [id number] 1mg Take 1 [facility] mg tablet 1-01 tablet by ity o f 00:00: mouth [place] 00 every Medical evening. Branch Alternate take 1mg x4 days, then 2mg x 3 days warfarin 2021-04 Yes [id number] 1mg Take 1 [facility]-01 tablet by [facility] f 00:00: mouth [place] 00 every Medical evening. Branch Alternate take 1mg x4 days, then 2mg x 3 days warfarin 2021-04 Yes [id number] 1mg Take 1 [facility] tablet 1-01 tablet by [facility] f 00:00: mouth [place] 00 every Medical evening. Branch Alternate take 1mg x4 days, then 2mg x 3 days warfarin 2021-04 Yes [id number] 1mg Take 1 [facility] mg tablet 1- tablet by [facility] f 00:00: mouth [place] 00 every Medical evening. Branch Alternate take 1mg x4 days, then 2mg x 3 days warfarin 2021-04 Yes [id number] 1mg Take 1 [facility] mg tablet 1- tablet by [facility] f 00:00: mouth [place] 00 every Medical evening. Branch Alternate take 1mg x4 days, then 2mg x 3 days warfarin 2021-04 Yes [id number] 1mg Take 1 [facility] mg tablet 1- tablet by [facility] f 00:00: mouth [place] 00 every Medical evening. Branch Alternate take 1mg x4 days, then 2mg x 3 days warfarin 2021-04 Yes [id number] 1mg Take 1 [facility] mg tablet 04-15 tablet by [facility] f 00:00: mouth [place] 00 every Medical evening. Branch Alternate take 1mg x4 days, then 2mg x 3 days warfarin 2021-04- No [id number] 1mg Take 1 [facility] mg tablet 103-15 tablet by [facility] of 00:00: 00:00 mouth [place] 00 :00 every Medical evening. Branch Alternate take 1mg x4 days, then 2mg x 3 days warfarin 2021-04 Yes [id number] 1mg Take 1 [facility] mg tablet 0-17 tablet by [facility] f 00:00: mouth [place] 00 every Medical evening. Branch Alternate take 1mg x4 days, then 2mg x 3 days warfarin 2021-04- No [id number] 1mg Take 1 [facility] mg tablet 0-17 - tablet by [facility] of 00:00: 00:00 mouth [place] 00 :00 every Medical evening. Branch Alternate take 1mg x4 days, then 2mg x 3 days ezetimibe 0 Yes 10mg Take 1 [facility] (ZETIA) 10 9-02 tablet by [facility] mg tablet 00:00: mouth [place] the Medical morning. [place] ezetimibe Yes 10mg Take 1 [facility] [...] 00 the Medical morning. Branch ezetimibe 2022-0 2022- No 10mg Take 1 [facility] (ZETIA) 10 9-02 12-19 tablet by [facility] mg tablet 00:00: 00:00 mouth in [place] 00 :00 the Medical morning. Branch warfarin Yes [id number] 1mg Take 1 [facility] mg tablet 8-24 tablet by [facility] f 00:00: mouth [place] 00 every Medical evening. Branch Alternate take 1mg x2days, then 2mg x 1 day warfarin 1 Yes [id number] 1mg Take 1 [facility] mg tablet 8-24 tablet by [facility] f 00:00: mouth [place] 00 every Medical evening. Branch Alternate take 1mg x2days, then 2mg x 1 day warfarin Yes [id number] 1mg Take 1 [facility] mg tablet 8-24 tablet by [facility] f 00:00: mouth [place] 00 every Medical evening. Branch Alternate take 1mg x2days, then 2mg x 1 day warfarin Yes [id number] 1mg Take 1 [facility] mg tablet 8-24 tablet by [facility] f 00:00: mouth [place] 00 every Medical evening. Branch Alternate take 1mg x2days, then 2mg x 1 day warfarin Yes [id number] 1mg Take 1 [facility] mg tablet 8-24 tablet by [facility] f 00:00: mouth [place] 00 every Medical evening. Branch Alternate take 1mg x2days, then 2mg x 1 day warfarin Yes [id number] 1mg Take 1 [facility] mg tablet 8-24 tablet by [facility] f 00:00: mouth [place] 00 every Medical evening. Branch Alternate take 1mg x2days, then 2mg x 1 day warfarin Yes [id number] 1mg Take 1 [facility] mg tablet 8-24 tablet by [facility] o f 00:00: mouth [place] 00 every Medical evening. Branch Alternate take 1mg x2days, then 2mg x 1 day warfarin Yes [id number] 1mg Take 1 [facility] mg tablet 8-24 tablet by [facility] f 00:00: mouth [place] 00 every Medical evening. Branch Alternate take 1mg x2days, then 2mg x 1 day warfarin 1 Yes [id number] 1mg Take 1 [facility] mg tablet 8-24 tablet by [facility] o f 00:00: mouth [place] 00 every Medical evening. Branch Alternate take 1mg x2days, then 2mg x 1 day warfarin 1 Yes [id number] 1mg Take 1 [facility] mg tablet 8-24 tablet by [facility] f 00:00: mouth [place] 00 every Medical evening. Branch Alternate take 1mg x2days, then 2mg x 1 day warfarin 1 Yes [id number] 1mg Take 1 [facility] mg tablet 8-24 tablet by [facility] f 00:00: mouth [place] 00 every Medical evening. Branch Alternate take 1mg x2days, then 2mg x 1 day warfarin 1 Yes [id number] 1mg Take 1 [facility] mg tablet 8-24 tablet by [facility] o f 00:00: mouth [place] 00 every Medical evening. Branch Alternate take 1mg x2days, then 2mg x 1 day warfarin 1 Yes [id number] 1mg Take 1 [facility] mg tablet 8-24 tablet by [facility] o f 00:00: mouth [place] 00 every Medical evening. Branch Alternate take 1mg x2days, then 2mg x 1 day warfarin 1 2021- No [id number] 1mg Take 1 [facility] mg tablet 8-24 10-17 tablet by [facility] of 00:00: 00:00 mouth [place] 00 :00 every Medical evening. Branch Alternate take 1mg x2days, then 2mg x 1 day warfarin 1 2021- No [id number] 2mg Take 2 [facility] mg tablet 8-23 08-24 tablets by [facility] of 00:00: 00:00 mouth [place] 00 :00 every Medical evening. [place] dofetilide 2021- No [id number] 125ug Take 1 [facility] 125 mcg 8-19 08-27 capsule by [facility] o f capsule 00:00: 04:59 mouth [place] 00 :00 every 12 Medical (twelve) Branch hours for 7 days. dofetilide 2021- No [id number] 125ug Take 1 [facility] 125 mcg 8-19 08-27 capsule by [facility] o f capsule 00:00: 04:59 mouth [place] 00 :00 every 12 Medical (twelve) Branch hours for 7 days. dofetilide 2021- No [id number] 125ug Take 1 [facility] 125 mcg 8-17 11-16 capsule by [facility] o f capsule 00:00: 05:59 mouth [place] 00 :00 every 12 Medical (twelve) Branch hours for 90 days. dofetilide 2021- No [id number] 125ug Take 1 [facility] 125 mcg 8-17 11-16 capsule by [facility] o f capsule 00:00: 05:59 mouth [place] 00 :00 every 12 Medical (twelve) Branch hours for 90 days. dofetilide 2021- No [id number] 125ug Take 1 [facility] 125 mcg 8-17 11-16 capsule by [facility] o f capsule 00:00: 05:59 mouth [place] 00 :00 every 12 Medical (twelve) Branch hours for 90 days. dofetilide 2021- No [id number] 125ug Take 1 [facility] 125 mcg 8-17 11-16 capsule by [facility] o f capsule 00:00: 05:59 mouth [place] 00 :00 every 12 Medical (twelve) Branch hours for 90 days. dofetilide 2021- No [id number] 125ug Take 1 [facility] 125 mcg 8-17 11-16 capsule by [facility] o f capsule 00:00: 05:59 mouth [place] 00 :00 every 12 Medical (twelve) Branch hours for 90 days. dofetilide 2021- No [id number] 125ug Take 1 [facility] 125 mcg 8-17 11-16 capsule by [facility] o f capsule 00:00: 05:59 mouth [place] 00 :00 every 12 Medical (twelve) Branch hours for 90 days. dofetilide 2021- No [id number] 125ug Take 1 [facility] 125 mcg 8-17 11-16 capsule by [facility] o f capsule 00:00: 05:59 mouth [place] 00 :00 every 12 Medical (twelve) Branch hours for 90 days. dofetilide 2021- No [id number] 125ug Take 1 [facility] 125 mcg 8-17 11-16 capsule by [facility] o f capsule 00:00: 05:59 mouth [place] 00 :00 every 12 Medical (twelve) Branch hours for 90 days. dofetilide 2021- No [id number] 125ug Take 1 [facility] 125 mcg 8-17 11-16 capsule by [facility] o f capsule 00:00: 05:59 mouth [place] 00 :00 every 12 Medical (twelve) Branch hours for 90 days. dofetilide 2021- No [id number] 125ug Take 1 [facility] 125 mcg 8-17 11-16 capsule by [facility] o f capsule 00:00: 05:59 mouth [place] 00 :00 every 12 Medical (twelve) Branch hours for 90 days. dofetilide 2- No [id number] 125ug Take 1 [facility] 125 mcg 8-17 11-16 capsule by [facility] o f capsule 00:00: 05:59 mouth [place] 00 :00 every 12 Medical (twelve) Branch hours for 90 days. dofetilide 2- No [id number] 125ug Take 1 [facility] 125 mcg 8-17 11-16 capsule by [facility] o f capsule 00:00: 05:59 mouth [place] 00 :00 every 12 Medical (twelve) Branch hours for 90 days. dofetilide 2021- No [id number] 125ug Take 1 [facility] 125 mcg 8-17 11-16 capsule by [facility] o f capsule 00:00: 05:59 mouth [place] 00 :00 every 12 Medical (twelve) Branch hours for 90 days. dofetilide 2- No [id number] 125ug Take 1 [facility] 125 mcg 8-17 11-16 capsule by [facility] o f capsule 00:00: 05:59 mouth [place] 00 :00 every 12 Medical (twelve) Branch hours for 90 days. dofetilide 2- No [id number] 125ug Take 1 [facility] 125 mcg 8-17 11-16 capsule by [facility] o f capsule 00:00: 05:59 mouth [place] 00 :00 every 12 Medical (twelve) Branch hours for 90 days. dofetilide 2- No [id number] 125ug Take 1 [facility] 125 mcg 8-17 11-16 capsule by [facility] o f capsule 00:00: 05:59 mouth [place] 00 :00 every 12 Medical (twelve) Branch hours for 90 days. dofetilide 2- No [id number] 125ug Take 1 [facility] 125 mcg 8-17 11-16 capsule by [facility] o f capsule 00:00: 05:59 mouth [place] 00 :00 every 12 Medical (twelve) Branch hours for 90 days. dofetilide 2- No [id number] 125ug Take 1 [facility] 125 mcg 8-17 11-16 capsule by [facility] o f capsule 00:00: 05:59 mouth [place] 00 :00 every 12 Medical (twelve) Branch hours for 90 days. dofetilide 2- No [id number] 125ug Take 1 [facility] 125 mcg 8-17 11-16 capsule by [facility] o f capsule 00:00: 05:59 mouth [place] 00 :00 every 12 Medical (twelve) Branch hours for 90 days. dofetilide 2021-0 2021- No [id number] 125ug Take 1 [facility] 125 mcg 8-17 11-16 capsule by [facility] o f capsule 00:00: 05:59 mouth [place] 00 :00 every 12 Medical (twelve) Branch hours for 90 days. atorvastati 2021-0 Yes 80mg Take 1 [facility] ers n 80 mg 7-12 tablet by [facility] of tablet 00:00: mouth at [place] [address] bedtime. Medical Branch atorvastati 2021-0 Yes 80mg Take 1 [facility] ers n 80 mg 7-12 tablet by [facility] of tablet 00:00: mouth at [place] [address] bedtime. Medical Branch atorvastati 2021-0 Yes 80mg Take 1 [facility] n 80 mg 7-12 tablet by [facility] of tablet 00:00: mouth at [place] [address] bedtime. Medical Branch atorvastati 2021-0 Yes 80mg Take 1 [facility] ers n 80 mg 7-12 tablet by [facility] of tablet 00:00: mouth at [place] [address] bedtime. Medical Branch atorvastati 2021-0 Yes 80mg Take 1 [facility] ers n 80 mg 7-12 tablet by [facility] of tablet 00:00: mouth at [place] [address] bedtime. Medical Branch atorvastati 2021-0 Yes 80mg Take 1 [facility] n 80 mg 7-12 tablet by [facility] of tablet 00:00: mouth at [place] [address] bedtime. Medical Branch atorvastati 2021-0 Yes 80mg Take 1 [facility] n 80 mg 7-12 tablet by [facility] of tablet 00:00: mouth at [place] [address] bedtime. Medical Branch atorvastati 2021-0 Yes 80mg Take 1 [facility] n 80 mg 7-12 tablet by [facility] of tablet 00:00: mouth at [place] [address] bedtime. Medical Branch atorvastati 2021-0 Yes 80mg Take 1 [facility] n 80 mg 7-12 tablet by [facility] of tablet 00:00: mouth at [place] [address] bedtime. Medical Branch atorvastati 2021-0 Yes 80mg Take 1 [facility] n 80 mg 7-12 tablet by [facility] of tablet 00:00: mouth at [place] [address] bedtime. Medical Branch atorvastati 2022-0 Yes 80mg Take 1 [facility] n 80 mg 7-12 tablet by [facility] of tablet 00:00: mouth at [place] [address] bedtime. Medical Branch atorvastati 2-0 Yes 80mg Take 1 [facility] ers n 80 mg 7-12 tablet by [facility] of tablet 00:00: mouth at [place] [address] bedtime. Medical Branch atorvastati 2022-0 Yes 80mg Take 1 [facility] ers n 80 mg 7-12 tablet by [facility] of tablet 00:00: mouth at [place] bedtime. Medical Branch atorvastati 2-0 Yes 80mg Take 1 [facility] ers n 80 mg 7-12 tablet by [facility] of tablet 00:00: mouth at [place] [address] bedtime. Medical Branch atorvastati 2-0 Yes 80mg Take 1 [facility] n 80 mg 7-12 tablet by [facility] of tablet 00:00: mouth at [place] [address] bedtime. Medical Branch atorvastati 2-0 Yes 80mg Take 1 [facility] n 80 mg 7-12 tablet by [facility] of tablet 00:00: mouth at [place] [address] bedtime. Medical Branch atorvastati 2-0 Yes 80mg Take 1 [facility] n 80 mg 7-12 tablet by [facility] of tablet 00:00: mouth at [place] [address] bedtime. Medical Branch atorvastati 2-0 Yes 80mg Take 1 [facility] n 80 mg 7-12 tablet by [facility] of tablet 00:00: mouth at [place] [address] bedtime. Medical Branch atorvastati 2022-0 Yes 80mg Take 1 [facility] n 80 mg 7-12 tablet by [facility] of tablet 00:00: mouth at [place] [address] bedtime. Medical Branch atorvastati 2022-0 Yes 80mg Take 1 [facility] n 80 mg 7-12 tablet by [facility] of tablet 00:00: mouth at [place] [address] bedtime. Medical Branch atorvastati 2022-0 Yes 80mg Take 1 [facility] n 80 mg 7-12 tablet by [facility] of tablet 00:00: mouth at [place] [address] bedtime. Medical Branch atorvastati 2022-0 Yes 80mg Take 1 [facility] n 80 mg 7-12 tablet by [facility] of tablet 00:00: mouth at [place] [address] bedtime. Medical Branch atorvastati 2022-0 Yes 80mg Take 1 [facility] n 80 mg 7-12 tablet by [facility] of tablet 00:00: mouth at [place] [address] bedtime. Medical Branch atorvastati 2-0 Yes 80mg Take 1 [facility] n 80 mg 7-12 tablet by [facility] of tablet 00:00: mouth at [place] [address] bedtime. Medical Branch atorvastati 2-0 Yes 80mg Take 1 [facility] n 80 mg 7-12 tablet by [facility] of tablet 00:00: mouth at [place] [address] bedtime. Medical Branch atorvastati 2-0 Yes 80mg Take 1 [facility] n 80 mg 7-12 tablet by [facility] of tablet 00:00: mouth at [place] [address] bedtime. Medical Branch atorvastati 2-0 Yes 80mg Take 1 [facility] n 80 mg 7-12 tablet by [facility] of tablet 00:00: mouth at [place] [address] bedtime. Medical Branch atorvastati 2-0 Yes 80mg Take 1 [facility] n 80 mg 7-12 tablet by [facility] of tablet 00:00: mouth at [place] [address] bedtime. Medical Branch atorvastati 2-0 Yes 80mg Take 1 [facility] n 80 mg 7-12 tablet by [facility] of tablet 00:00: mouth at [place] [address] bedtime. Medical Branch atorvastati 2-0 Yes 80mg Take 1 [facility] n 80 mg 7-12 tablet by [facility] of tablet 00:00: mouth at [place] [address] bedtime. Medical Branch atorvastati 2-0 Yes 80mg Take 1 [facility] n 80 mg 7-12 tablet by [facility] of tablet 00:00: mouth at [place] [address] bedtime. Medical Branch atorvastati 2-0 Yes 80mg Take 1 [facility] n 80 mg 7-12 tablet by [facility] of tablet 00:00: mouth at [place] [address] bedtime. Medical Branch atorvastati 2-0 Yes 80mg Take 1 [facility] n 80 mg 7-12 tablet by [facility] of tablet 00:00: mouth at [place] [address] bedtime. Medical Branch atorvastati 2-0 Yes 80mg Take 1 [facility] 80 mg 7-12 tablet by [facility] of tablet 00:00: mouth at [place] [address] bedtime. Medical Branch atorvastati 2-0 Yes 80mg Take 1 [facility] 80 mg 7-12 tablet by [facility] of tablet 00:00: mouth at [place] [address] bedtime. Medical Branch atorvastati 2022-0 Yes 80mg Take 1 [facility] n 80 mg 7-12 tablet by [facility] of tablet 00:00: mouth at [place] [address] bedtime. Medical Branch atorvastati 2-0 Yes 80mg Take 1 [facility] n 80 mg 7-12 tablet by [facility] of tablet 00:00: mouth at [place] [address] bedtime. Medical Branch atorvastati 2022-0 Yes 80mg Take 1 [facility] n 80 mg 7-12 tablet by [facility] of tablet 00:00: mouth at [place] bedtime. Medical Branch atorvastati 2-0 Yes 80mg Take 1 [facility] n 80 mg 7-12 tablet by [facility] of tablet 00:00: mouth at [place] [address] bedtime. Medical Branch atorvastati 2-0 Yes 80mg Take 1 [facility] n 80 mg 7-12 tablet by [facility] of tablet 00:00: mouth at [place] [address] bedtime. Medical Branch atorvastati 2-0 Yes 80mg Take 1 [facility] n 80 mg 7-12 tablet by [facility] of tablet 00:00: mouth at [place] [address] bedtime. Medical Branch atorvastati 2-0 Yes 80mg Take 1 [facility] n 80 mg 7-12 tablet by [facility] of tablet 00:00: mouth at [place] [address] bedtime. Medical Branch atorvastati 2-0 Yes 80mg Take 1 [facility] n 80 mg 7-12 tablet by [facility] of tablet 00:00: mouth at [place] [address] bedtime. Medical Branch atorvastati 2022-0 Yes 80mg Take 1 [facility] n 80 mg 7-12 tablet by [facility] of tablet 00:00: mouth at [place] [address] bedtime. Medical Branch atorvastati 2022-0 Yes 80mg Take 1 [facility] n 80 mg 7-12 tablet by [facility] of tablet 00:00: mouth at [place] [address] bedtime. Medical Branch atorvastati 2022-0 Yes 80mg Take 1 [facility] 80 mg 7-12 tablet by [facility] of tablet 00:00: mouth at [place] [address] bedtime. Medical Branch atorvastati 2022-0 Yes 80mg Take 1 [facility] n 80 mg 7-12 tablet by [facility] of tablet 00:00: mouth at [place] [address] bedtime. Medical Branch atorvastati 2022-0 Yes 80mg Take 1 [facility] n 80 mg 7-12 tablet by [facility] of tablet 00:00: mouth at [place] [address] bedtime. Medical Branch atorvastati 2-0 Yes 80mg Take 1 [facility] 80 mg 7-12 tablet by [facility] of tablet 00:00: mouth at [place] [address] bedtime. Medical Branch atorvastati 2-0 Yes 80mg Take 1 [facility] 80 mg 7-12 tablet by [facility] of tablet 00:00: mouth at [place] [address] bedtime. [facility] Branch atorvastati 2-0 Yes 80mg Take 1 [facility] 80 mg 7-12 tablet by [facility] of tablet 00:00: mouth at [place] [address] bedtime. Medical Branch atorvastati 2-0 Yes 80mg Take 1 [facility] 80 mg 7-12 tablet by [facility] of tablet 00:00: mouth at [place] [address] bedtime. Medical Branch atorvastati 2-0 Yes 80mg Take 1 [facility] 80 mg 7-12 tablet by [facility] of tablet 00:00: mouth at [place] [address] bedtime. Medical Branch atorvastati 2-0 Yes 80mg Take 1 [facility] 80 mg 7-12 tablet by [facility] tablet 00:00: mouth at [place] [address] bedtime. [facility] Branch atorvastati 2-0 Yes 80mg Take 1 [facility] 80 mg 7-12 tablet by [facility] tablet 00:00: mouth at [place] [address] bedtime. Medical Branch atorvastati 2-0 Yes 80mg Take 1 [facility] 80 mg 7-12 tablet by [facility] tablet 00:00: mouth at [place] [address] bedtime. [facility] Branch atorvastati 2-0 Yes 80mg Take 1 [facility] 80 mg 7-12 tablet by [facility] tablet 00:00: mouth at [place] [address] bedtime. [facility] Branch atorvastati 2-0 Yes 80mg Take 1 [facility] 80 mg 7-12 tablet by [facility] tablet 00:00: mouth at [place] [address] bedtime. [facility] Branch atorvastati 2-0 Yes 80mg Take 1 [facility] 80 mg 7-12 tablet by [facility] tablet 00:00: mouth at [place] [address] bedtime. [facility] Branch atorvastati 2-0 Yes 80mg Take 1 [facility] n 80 mg 7-12 tablet by [facility] tablet 00:00: mouth at [place] [address] bedtime. [facility] Branch atorvastati 2-0 Yes 80mg Take 1 [facility] n 80 mg 7-12 tablet by [facility] tablet 00:00: mouth at [place] bedtime. [facility] Branch atorvastati 2-0 Yes 80mg Take 1 [facility] n 80 mg 7-12 tablet by [facility] tablet 00:00: mouth at [place] bedtime. [facility] Branch atorvastati 2-0 Yes 80mg Take 1 [facility] n 80 mg 7-12 tablet by [facility] tablet 00:00: mouth at [place] bedtime. [facility] Branch atorvastati 2-0 Yes 80mg Take 1 [facility] 80 mg 7-12 tablet by [facility] tablet 00:00: mouth at [place] bedtime. [facility] Branch atorvastati 2-0 Yes 80mg Take 1 [facility] n 80 mg 7-12 tablet by [facility] tablet 00:00: mouth at [place] bedtime. [facility] Branch atorvastati 2-0 Yes 80mg Take 1 [facility] n 80 mg 7-12 tablet by [facility] tablet 00:00: mouth at [place] bedtime. [facility] atorvastati 2-0 Yes 80mg Take 1 [facility] n 80 mg 7-12 tablet by [facility] tablet 00:00: mouth at [place] bedtime. [facility] Branch atorvastati 2-0 Yes 80mg Take 1 [facility] n 80 mg 7-12 tablet by [facility] tablet 00:00: mouth at [place] bedtime. [facility] Branch ezetimibe 2-0 Yes 10mg Take 1 [facility] (ZETIA) 10 5-20 tablet by [facility] mg tablet 00:00: mouth daily. [facility] ezetimibe 2-0 Yes 10mg Take 1 [facility] (ZETIA) 10 5-20 tablet by [facility] mg tablet 00:00: mouth daily. [facility] ezetimibe 2022-0 Yes 10mg Take 1 [facility] (ZETIA) 10 5-20 tablet by [facility] mg tablet 00:00: mouth daily. [facility] Branch ezetimibe 2-0 Yes 10mg [...] [place] 00 :00 daily. [facility] Branch furosemide Yes [id number] 40mg Take 2 [facility] 20 mg 2-16 02 tablets by [facility] tablet 00:00: mouth [place] 00 daily. [facility] Branch furosemide Yes [id number] 40mg Take 2 [facility] 20 mg 2-16 02 tablets by [facility] tablet 00:00: mouth [place] 00 daily. [facility] Branch furosemide 0 Yes [id number] 40mg Take 2 [facility] 20 mg 2-16 02 tablets by [facility] tablet 00:00: mouth [place] 00 daily. [facility] Branch furosemide 0 Yes [id number] 40mg Take 2 [facility] 20 mg 2-16 02 tablets by [facility] tablet 00:00: mouth [place] 00 daily. [facility] Branch furosemide 0 Yes [id number] 40mg Take 2 [facility] 20 mg 2-16 02 tablets by [facility] tablet 00:00: mouth [place] 00 daily. [facility] Branch furosemide 0 Yes [id number] 40mg Take 2 [facility] 20 mg 2-16 02 tablets by [facility] tablet 00:00: mouth [place] 00 daily. [facility] Branch furosemide 0 Yes [id number] 40mg Take 2 [facility] 20 mg 2-16 02 tablets by [facility] tablet 00:00: mouth [place] 00 daily. [facility] furosemide 0 Yes [id number] 40mg Take 2 [facility] 20 mg 2-16 02 tablets by [facility] tablet 00:00: mouth [place] 00 daily. [facility] furosemide 0 Yes [id number] 40mg Take 2 [facility] 20 mg 2-16 02 tablets by [facility] tablet 00:00: mouth [place] 00 daily. [facility] Branch furosemide 0 Yes [id number] 40mg Take 2 [facility] 20 mg 2-16 02 tablets by [facility] tablet 00:00: mouth [place] 00 daily. [facility] furosemide 2021-0 Yes [id number] 40mg Take 2 [facility] 20 mg 2-16 02 tablets by [facility] tablet 00:00: mouth [place] 00 daily. [facility] furosemide 2021-0 Yes [id number] 40mg Take 2 [facility] 20 mg 2-16 02 tablets by [facility] tablet 00:00: mouth [place] 00 daily. [facility] furosemide 2021-0 Yes [id number] 40mg Take 2 [facility] 20 mg 2-16 02 tablets by [facility] tablet 00:00: mouth [place] 00 daily. [facility] furosemide 2021-0 Yes [id number] 40mg Take 2 [facility] 20 mg 2-16 02 tablets by [facility] tablet 00:00: mouth [place] 00 daily. [facility] furosemide 2021-0 Yes [id number] 40mg Take 2 [facility] 20 mg 2-16 02 tablets by [facility] tablet 00:00: mouth [place] 00 daily. [facility] furosemide 2021-0 Yes [id number] 40mg Take 2 [facility] 20 mg 2-16 02 tablets by [facility] tablet 00:00: mouth [place] 00 daily. [facility] furosemide 2021-0 Yes [id number] 40mg Take 2 [facility] 20 mg 2-16 02 tablets by [facility] tablet 00:00: mouth [place] 00 daily. [facility] furosemide 2021-0 Yes [id number] 40mg Take 2 [facility] 20 mg 2-16 02 tablets by [facility] tablet 00:00: mouth [place] 00 daily. [facility] furosemide 2021-0 Yes [id number] 40mg Take 2 [facility] 20 mg 2-16 02 tablets by [facility] tablet 00:00: mouth [place] 00 daily. [facility] furosemide 2021-0 Yes [id number] 40mg Take 2 [facility] 20 mg 2-16 02 tablets by [facility] tablet 00:00: mouth [place] 00 daily. [facility] furosemide 2021-0 Yes [id number] 40mg Take 2 [facility] 20 mg 2-16 02 tablets by [facility] tablet 00:00: mouth [place] 00 daily. [facility] furosemide 2021-0 Yes [id number] 40mg Take 2 [facility] 20 mg 2-16 02 tablets by [facility] tablet 00:00: mouth [place] 00 daily. [facility] furosemide 2021-0 Yes [id number] 40mg Take 2 [facility] 20 mg 2-16 02 tablets by [facility] tablet 00:00: mouth [place] 00 daily. [facility] furosemide 2021-0 Yes [id number] 40mg Take 2 [facility] 20 mg 2-16 02 tablets by [facility] tablet 00:00: mouth [place] 00 daily. [facility] furosemide 2021-0 Yes [id number] 40mg Take 2 [facility] 20 mg 2-16 02 tablets by [facility] tablet 00:00: mouth [place] 00 daily. [facility] furosemide 2021-0 Yes [id number] 40mg Take 2 [facility] 20 mg 2-16 02 tablets by [facility] tablet 00:00: mouth [place] 00 daily. [facility] furosemide 0 Yes [id number] 40mg Take 2 [facility] 20 mg 2-16 02 tablets by [facility] tablet 00:00: mouth [place] 00 daily. [facility] furosemide 0 Yes [id number] 40mg Take 2 [facility] 20 mg 2-16 02 tablets by [facility] tablet 00:00: mouth [place] 00 daily. [facility] furosemide 0 Yes [id number] 40mg Take 2 [facility] 20 mg 2-16 02 tablets by [facility] tablet 00:00: mouth [place] 00 daily. [facility] furosemide 2021-0 Yes [id number] 40mg Take 2 [facility] 20 mg 2-16 02 tablets by [facility] tablet 00:00: mouth [place] 00 daily. [facility] furosemide 2021-0 Yes [id number] 40mg Take 2 [facility] 20 mg 2-16 02 tablets by [facility] tablet 00:00: mouth [place] 00 daily. [facility] furosemide 2021-0 Yes [id number] 40mg Take 2 [facility] 20 mg 2-16 02 tablets by [facility] tablet 00:00: mouth [place] 00 daily. [facility] furosemide 2021-0 Yes [id number] 40mg Take 2 [facility] 20 mg 2-16 02 tablets by [facility] tablet 00:00: mouth [place] 00 daily. [facility] furosemide 2021-0 Yes [id number] 40mg Take 2 [facility] 20 mg 2-16 02 tablets by [facility] tablet 00:00: mouth [place] 00 daily. [facility] furosemide 2021-0 Yes [id number] 40mg Take 2 [facility] 20 mg 2-16 02 tablets by [facility] tablet 00:00: mouth [place] 00 daily. [facility] furosemide 2022-0 Yes [id number] 40mg Take 2 [facility] 20 mg 2-16 02 tablets by [facility] tablet 00:00: mouth [place] 00 daily. [facility] furosemide Yes [id number] 40mg Take 2 [facility] 20 mg 2-16 02 tablets by [facility] tablet 00:00: mouth [place] 00 daily. [facility] furosemide Yes [id number] 40mg Take 2 [facility] 20 mg 2-16 02 tablets by [facility] tablet 00:00: mouth [place] 00 daily. [facility] furosemide Yes [id number] 40mg Take 2 [facility] 20 mg 2-16 02 tablets by [facility] tablet 00:00: mouth [place] 00 daily. [facility] furosemide Yes [id number] 40mg Take 2 [facility] 20 mg 2-16 02 tablets by [facility] tablet 00:00: mouth [place] 00 daily. [facility] furosemide Yes [id number] 40mg Take 2 [facility] 20 mg 2-16 02 tablets by [facility] tablet 00:00: mouth [place] 00 daily. [facility] furosemide Yes [id number] 40mg Take 2 [facility] 20 mg 2-16 02 tablets by [facility] tablet 00:00: mouth [place] 00 daily. [facility] furosemide 2022- No [id number] 40mg Take 2 [facility] 20 mg 2-16 02-27 02 tablets by [facility] tablet 00:00: 00:00 mouth [place] 00 :00 daily. [facility] furosemide 2021-2022- No [id number] 40mg Take 2 [facility] 20 mg 2-16 02-27 02 tablets by ity of tablet 00:00: 00:00 mouth [place] 00 :00 daily. [facility] furosemide 3- No [id number] 40mg Take 2 [facility] 20 mg 2-16 02-27 02 tablets by ity of tablet 00:00: 00:00 mouth [place] 00 :00 daily. [facility] furosemide 2021-3- No [id number] 40mg Take 2 [facility] 20 mg 2-16 02-27 02 tablets by ity of tablet 00:00: 00:00 mouth [place] 00 :00 daily. [facility] furosemide 2021-3- No [id number] 40mg Take 2 [facility] 20 mg 2-16 02-27 02 tablets by ity of tablet 00:00: 00:00 mouth [place] 00 :00 daily. [facility] metoprolol 2020-04 Yes [id number] 25mg Take 1 [facility] tartrate 25 2-15 tablet by [facility] of mg tablet 00:00: mouth (two) Medical times Branch daily. metoprolol 2020-04 Yes [id number] 25mg Take 1 [facility] tartrate 25 2-15 tablet by [facility] of mg tablet 00:00: mouth (two) Medical times Branch daily. metoprolol 2020-04 Yes [id number] 25mg Take 1 [facility] tartrate 25 2-15 tablet by [facility] of mg tablet 00:00: mouth (two) Medical times Branch daily. metoprolol 2020-04 Yes [id number] 25mg Take 1 [facility] tartrate 25 2-15 tablet by [facility] of mg tablet 00:00: mouth (two) Medical times Branch daily. metoprolol 2020-04 Yes [id number] 25mg Take 1 [facility] tartrate 25 2-15 tablet by [facility] of mg tablet 00:00: mouth (two) Medical times Branch daily. metoprolol 2020-04 Yes [id number] 25mg Take 1 [facility] tartrate 25 2-15 tablet by [facility] of mg tablet 00:00: mouth (two) Medical times Branch daily. metoprolol 2020-04 Yes [id number] 25mg Take 1 [facility] tartrate 25 2-15 tablet by [facility] of mg tablet 00:00: mouth (two) Medical times Branch daily. metoprolol 2020-04 Yes [id number] 25mg Take 1 [facility]ivers tartrate 25 2-15 tablet by [facility] of mg tablet 00:00: mouth (two) Medical times Branch daily. metoprolol 2020-04 Yes [id number] 25mg Take 1 [facility] tartrate 25 2-15 tablet by [facility] of mg tablet 00:00: mouth (two) Medical times Branch daily. metoprolol 2020-04 Yes [id number] 25mg Take 1 [facility] tartrate 25 2-15 tablet by [facility] of mg tablet 00:00: mouth (two) Medical times Branch daily. metoprolol 2020-04 Yes [id number] 25mg Take 1 [facility] tartrate 25 2-15 tablet by [facility] of mg tablet 00:00: mouth (two) Medical times Branch daily. metoprolol 2020-04 Yes [id number] 25mg Take 1 [facility]ivers tartrate 25 2-15 tablet by [facility] of mg tablet 00:00: mouth (two) Medical times Branch daily. metoprolol 2020-04 Yes [id number] 25mg Take 1 [facility] tartrate 25 2-15 tablet by [facility] of mg tablet 00:00: mouth (two) Medical times Branch daily. metoprolol 2020-04 Yes [id number] 25mg Take 1 [facility] tartrate 25 2-15 tablet by [facility] of mg tablet 00:00: mouth (two) Medical times Branch daily. metoprolol 2020-04 Yes [id number] 25mg Take 1 [facility] tartrate 25 2-15 tablet by [facility] of mg tablet 00:00: mouth (two) Medical times Branch daily. metoprolol 2020-04 Yes [id number] 25mg Take 1 [facility] tartrate 25 2-15 tablet by [facility] of mg tablet 00:00: mouth (two) Medical times Branch daily. metoprolol 2020-04 Yes [id number] 25mg Take 1 [facility] tartrate 25 2-15 tablet by [facility] of mg tablet 00:00: mouth (two) Medical times Branch daily. metoprolol 2020-04 Yes [id number] 25mg Take 1 [facility] tartrate 25 2-15 tablet by [facility] of mg tablet 00:00: mouth (two) Medical times Branch daily. metoprolol 2020-04 Yes [id number] 25mg Take 1 [facility] tartrate 25 2-15 tablet by [facility] of mg tablet 00:00: mouth (two) Medical times Branch daily. metoprolol 2020-04 Yes [id number] 25mg Take 1 [facility]ivers tartrate 25 2-15 tablet by [facility] of mg tablet 00:00: mouth (two) Medical times Branch daily. metoprolol 2020-04 Yes [id number] 25mg Take 1 [facility]ivers tartrate 25 2-15 tablet by [facility] of mg tablet 00:00: mouth (two) Medical times Branch daily. metoprolol 2020-04 Yes [id number] 25mg Take 1 [facility] tartrate 25 2-15 tablet by [facility] of mg tablet 00:00: mouth (two) Medical times Branch daily. metoprolol 2020-04 Yes [id number] 25mg Take 1 [facility] tartrate 25 2-15 tablet by [facility] of mg tablet 00:00: mouth [place] (two) Medical times Branch daily. metoprolol 2020-04 Yes [id number] 25mg Take 1 [facility] nivers tartrate 25 2-15 tablet by [facility] of mg tablet 00:00: mouth (two) Medical times Branch daily. metoprolol 2020-04 Yes [id number] 25mg Take 1 [facility]ivers tartrate 25 2-15 tablet by [facility] of mg tablet 00:00: mouth [place] (two) Medical times Branch daily. metoprolol 2020-04 Yes [id number] 25mg Take 1 [facility] tartrate 25 2-15 tablet by [facility] of mg tablet 00:00: mouth [place] (two) Medical times Branch daily. metoprolol 2020-04 Yes [id number] 25mg Take 1 [facility] tartrate 25 2-15 tablet by [facility] of mg tablet 00:00: mouth [place] (two) Medical times Branch daily. metoprolol 2020-04 Yes [id number] 25mg Take 1 [facility] tartrate 25 2-15 tablet by [facility] of mg tablet 00:00: mouth [place] (two) Medical times Branch daily. metoprolol 2020-04 Yes [id number] 25mg Take 1 [facility] tartrate 25 2-15 tablet by [facility] of mg tablet 00:00: mouth [place] (two) Medical times Branch daily. metoprolol 2020-04- No [id number] 25mg Take 1 [facility] tartrate 25 2-15 12-19 tablet by it y [facility] mg tablet 00:00: 00:[place] [facility] times [facility] daily. polyethylen 2020-04 Yes [id number] 17g Take 1 [facility] e glycol 0-29 Packet by ity of 3350 17 00:00: mouth [place] gram powder 00 daily. [facility] polyethylen 2020-04 Yes [id number] 17g Take 1 [facility] e glycol 0-29 Packet by ity of 3350 17 00:00: mouth [place] gram powder 00 daily. [facility] polyethylen 2020-04 Yes [id number] 17g Take 1 [facility] e glycol 0-29 Packet by ity of 3350 17 00:00: mouth [place] gram powder 00 daily. [facility] polyethylen 2020-04 Yes [id number] 17g Take 1 [facility] e glycol 0-29 Packet by ity of 3350 17 00:00: mouth [place] gram powder 00 daily. [facility] polyethylen 2020-04 Yes [id number] 17g Take 1 [facility] e glycol 0-29 Packet by ity of 3350 17 00:00: mouth [place] gram powder 00 daily. [facility] polyethylen 2020-04 Yes [id number] 17g Take 1 [facility] e glycol 0-29 Packet by ity of 3350 17 00:00: mouth [place] gram powder 00 daily. [facility] polyethylen 2020-04 Yes [id number] 17g Take 1 [facility] glycol 0-29 Packet by ity of 3350 17 00:00: mouth [place] gram powder 00 daily. [facility] polyethylen 2020-04 Yes [id number] 17g Take 1 [facility] e glycol 0-29 Packet by ity of 3350 17 00:00: mouth [place] gram powder 00 daily. [facility] polyethylen 2020-04 Yes [id number] 17g Take 1 [facility] e glycol 0-29 Packet by ity of 3350 17 00:00: mouth [place] gram powder 00 daily. [facility] polyethylen 2020-04 Yes [id number] 17g Take 1 [facility] glycol 0-29 Packet by ity of 3350 17 00:00: mouth [place] gram powder 00 daily. [facility] polyethylen 2020-04 Yes [id number] 17g Take 1 [facility] glycol 0-29 Packet by ity of 3350 17 00:00: mouth [place] gram powder 00 daily. [facility] polyethylen 2020-04 Yes [id number] 17g Take 1 [facility] glycol 0-29 Packet by ity of 3350 17 00:00: mouth [place] gram powder 00 daily. [facility] polyethylen 2020-04 Yes [id number] 17g Take 1 [facility] glycol 0-29 Packet by ity of 3350 17 00:00: mouth [place] gram powder 00 daily. [facility] polyethylen 2020-04 Yes [id number] 17g Take 1 [facility] glycol 0-29 Packet by ity of 3350 17 00:00: mouth [place] gram powder 00 daily. [facility] polyethylen 2020-04 Yes [id number] 17g Take 1 [facility] glycol 0-29 Packet by ity of 3350 17 00:00: mouth [place] gram powder 00 daily. [facility] polyethylen 2020-04 Yes [id number] 17g Take 1 [facility] glycol 0-29 Packet by ity of 3350 17 00:00: mouth [place] gram powder 00 daily. [facility] polyethylen 2020-04 Yes [id number] 17g Take 1 [facility] glycol 0-29 Packet by ity of 3350 17 00:00: mouth [place] gram powder 00 daily. [facility] polyethylen 2020-04 Yes [id number] 17g Take 1 [facility] glycol 0-29 Packet by ity of 3350 17 00:00: mouth [place] gram powder 00 daily. [facility] polyethylen 2020-04 Yes [id number] 17g Take 1 [facility] glycol 0-29 Packet by ity of 3350 17 00:00: mouth [place] gram powder 00 daily. [facility] polyethylen 2020-04 Yes [id number] 17g Take 1 [facility] glycol 0-29 Packet by ity of 3350 17 00:00: mouth [place] gram powder 00 daily. [facility] polyethylen 2020-04 Yes [id number] 17g Take 1 [facility] glycol 0-29 Packet by ity of 3350 17 00:00: mouth [place] gram powder 00 daily. [facility] polyethylen 2020-04 Yes [id number] 17g Take 1 [facility] glycol 0-29 Packet by ity of 3350 17 00:00: mouth [place] gram powder 00 daily. [facility] polyethylen 2020-04 Yes [id number] 17g Take 1 [facility] glycol 0-29 Packet by ity of 3350 17 00:00: mouth [place] gram powder 00 daily. [facility] polyethylen 2020-04 Yes [id number] 17g Take 1 [facility] glycol 0-29 Packet by ity of 3350 17 00:00: mouth [place] gram powder 00 daily. [facility] polyethylen 2020-04 Yes [id number] 17g Take 1 [facility] glycol 0-29 Packet by ity of 3350 17 00:00: mouth [place] gram powder 00 daily. [facility] polyethylen 2020-04 Yes [id number] 17g Take 1 [facility] glycol 0-29 Packet by ity of 3350 17 00:00: mouth [place] gram powder 00 daily. [facility] polyethylen 2020-04 Yes [id number] 17g Take 1 [facility] glycol 0-29 Packet by ity of 3350 17 00:00: mouth [place] gram powder 00 daily. [facility] polyethylen 2020-04 Yes [id number] 17g Take 1 [facility] glycol 0-29 Packet by ity of 3350 17 00:00: mouth [place] gram powder 00 daily. [facility] polyethylen 2020-04 Yes [id number] 17g Take 1 [facility] glycol 0-29 Packet by ity of 3350 17 00:00: mouth [place] gram powder 00 daily. [facility] polyethylen 2020-04 Yes [id number] 17g Take 1 [facility] glycol 0-29 Packet by ity of 3350 17 00:00: mouth [place] gram powder 00 daily. [facility] polyethylen 2020-04 Yes [id number] 17g Take 1 [facility] glycol 0-29 Packet by ity of 3350 17 00:00: mouth [place] gram powder 00 daily. [facility] polyethylen 2020-04 Yes [id number] 17g Take 1 [facility] glycol 0-29 Packet by ity of 3350 17 00:00: mouth [place] gram powder 00 daily. [facility] polyethylen 2020-04 Yes [id number] 17g Take 1 [facility] glycol 0-29 Packet by ity of 3350 17 00:00: mouth [place] gram powder 00 daily. [facility] polyethylen 2020-04 Yes [id number] 17g Take 1 [facility] glycol 0-29 Packet by ity of 3350 17 00:00: mouth [place] gram powder 00 daily. [facility] polyethylen 2020-04 Yes [id number] 17g Take 1 [facility] glycol 0-29 Packet by ity of 3350 17 00:00: mouth [place] gram powder 00 daily. [facility] polyethylen 2020-04 Yes [id number] 17g Take 1 [facility] glycol 0-29 Packet by ity of 3350 17 00:00: mouth [place] gram powder 00 daily. [facility] polyethylen 2020-04 Yes [id number] 17g Take 1 [facility] glycol 0-29 Packet by ity of 3350 17 00:00: mouth [place] gram powder 00 daily. [facility] polyethylen 2020-04 Yes [id number] 17g Take 1 [facility] glycol 0-29 Packet by ity of 3350 17 00:00: mouth [place] gram powder 00 daily. [facility] polyethylen 2020-04 Yes [id number] 17g Take 1 [facility] glycol 0-29 Packet by ity of 3350 17 00:00: mouth [place] gram powder 00 daily. [facility] polyethylen 2020-04 Yes [id number] 17g Take 1 [facility] glycol 0-29 Packet by ity of 3350 17 00:00: mouth [place] gram powder 00 daily. [facility] polyethylen 2020-04 Yes [id number] 17g Take 1 [facility] glycol 0-29 Packet by ity of 3350 17 00:00: mouth [place] gram powder 00 daily. [facility] polyethylen 2020-04- No [id number] 17g Take 1 [facility] glycol 0-29 02-22 Packet by ity o f 3350 17 00:00: 00:00 mouth [place] gram powder 00 :00 daily. [facility] polyethylen 2020-04- No [id number] 17g Take 1 [facility] glycol 0-29 02-22 Packet by ity o f 3350 17 00:00: 00:00 mouth [place] gram powder 00 :00 daily. [facility] polyethylen 2020-04- No [id number] 17g Take 1 [facility] glycol 0-29 02-22 Packet by ity o f 3350 17 00:00: 00:00 mouth [place] gram powder 00 :00 daily. [facility] docusate 2020-04 Yes [id number] 100mg Take 1 [facility] 100 mg 0-28 capsule by ity of capsule 00:00: mouth 2 [place] 00 (two) Medical times Branch daily. docusate 2020-04 Yes [id number] 100mg Take 1 [facility] 100 mg 0-28 capsule by ity of capsule 00:00: mouth (two) Medical times Branch daily. docusate 2020-04 Yes [id number] 100mg Take 1 [facility] 100 mg 0-28 capsule by ity of capsule 00:00: mouth (two) Medical times Branch daily. docusate 2020-04 Yes [id number] 100mg Take 1 [facility] 100 mg 0-28 capsule by ity of capsule 00:00: mouth (two) Medical times Branch daily. docusate 2020-04 Yes [id number] 100mg Take 1 [facility] 100 mg 0-28 capsule by ity of capsule 00:00: mouth (two) Medical times Branch daily. docusate 2020-04 Yes [id number] 100mg Take 1 [facility] 100 mg 0-28 capsule by ity of capsule 00:00: mouth (two) Medical times Branch daily. docusate 2020-04 Yes [id number] 100mg Take 1 [facility] 100 mg 0-28 capsule by ity of capsule 00:00: mouth (two) Medical times Branch daily. docusate 2020-04 Yes [id number] 100mg Take 1 [facility] 100 mg 0-28 capsule by ity of capsule 00:00: mouth (two) Medical times Branch daily. docusate 2020-04 Yes [id number] 100mg Take 1 [facility] 100 mg 0-28 capsule by ity of capsule 00:00: mouth (two) Medical times Branch daily. docusate 2020-04 Yes [id number] 100mg Take 1 [facility] 100 mg 0-28 capsule by ity of capsule 00:00: mouth (two) Medical times Branch daily. docusate 2020-04 Yes [id number] 100mg Take 1 [facility] 100 mg 0-28 capsule by ity of capsule 00:00: mouth (two) Medical times Branch daily. docusate 2020-04 Yes [id number] 100mg Take 1 [facility] 100 mg 0-28 capsule by ity of capsule 00:00: mouth (two) Medical times Branch daily. docusate 2020-04 Yes [id number] 100mg Take 1 [facility] 100 mg 0-28 capsule by ity of capsule 00:00: mouth (two) Medical times Branch daily. docusate 2020-04 Yes [id number] 100mg Take 1 [facility] 100 mg 0-28 capsule by ity of capsule 00:00: mouth (two) Medical times Branch daily. docusate 2020-04 Yes [id number] 100mg Take 1 [facility] 100 mg 0-28 capsule by ity of capsule 00:00: mouth (two) Medical times Branch daily. docusate 2020-04 Yes [id number] 100mg Take 1 [facility] 100 mg 0-28 capsule by ity of capsule 00:00: mouth (two) Medical times Branch daily. docusate 2020-04 Yes [id number] 100mg Take 1 [facility] 100 mg 0-28 capsule by ity of capsule 00:00: mouth [place] (two) Medical times Branch daily. docusate 2020-04 Yes [id number] 100mg Take 1 [facility] 100 mg 0-28 capsule by ity of capsule 00:00: mouth [place] (two) Medical times Branch daily. docusate 2020-04 Yes [id number] 100mg Take 1 [facility] 100 mg 0-28 capsule by ity of capsule 00:00: mouth [place] (two) Medical times Branch daily. docusate 2020-04 Yes [id number] 100mg Take 1 [facility] 100 mg 0-28 capsule by ity of capsule 00:00: mouth [place] (two) Medical times Branch daily. docusate 2020-04 Yes [id number] 100mg Take 1 [facility] 100 mg 0-28 capsule by ity of capsule 00:00: mouth [place] (two) Medical times Branch daily. docusate 2020-04 Yes [id number] 100mg Take 1 [facility] 100 mg 0-28 capsule by ity of capsule 00:00: mouth 2 [place] (two) Medical times Branch daily. docusate 2020-04 Yes [id number] 100mg Take 1 [facility] 100 mg 0-28 capsule by ity of capsule 00:00: mouth 2 [place] 00 (two) Medical times Branch daily. docusate 2020-04 Yes [id number] 100mg Take 1 [facility] nivers 100 mg 0-28 capsule by ity of capsule 00:00: mouth (two) Medical times Branch daily. docusate 2020-04 Yes [id number] 100mg Take 1 [facility] 100 mg 0-28 capsule by ity of capsule 00:00: mouth (two) Medical times Branch daily. docusate 2020-04 Yes [id number] 100mg Take 1 [facility] 100 mg 0-28 capsule by ity of capsule 00:00: mouth (two) Medical times Branch daily. docusate 2020-04 Yes [id number] 100mg Take 1 [facility] 100 mg 0-28 capsule by ity of capsule 00:00: mouth (two) Medical times Branch daily. docusate 2020-04 Yes [id number] 100mg Take 1 [facility] 100 mg 0-28 capsule by ity of capsule 00:00: mouth (two) Medical times Branch daily. docusate 2020-04 Yes [id number] 100mg Take 1 [facility] 100 mg 0-28 capsule by ity of capsule 00:00: mouth (two) Medical times Branch daily. docusate 2020-04 Yes [id number] 100mg Take 1 [facility] 100 mg 0-28 capsule by ity of capsule 00:00: mouth (two) Medical times Branch daily. docusate 2020-04 Yes [id number] 100mg Take 1 [facility] 100 mg 0-28 capsule by ity of capsule 00:00: mouth (two) Medical times Branch daily. docusate 2020-04 Yes [id number] 100mg Take 1 [facility] 100 mg 0-28 capsule by ity of capsule 00:00: mouth (two) Medical times Branch daily. docusate 2020-04 Yes [id number] 100mg Take 1 [facility] 100 mg 0-28 capsule by ity of capsule 00:00: mouth (two) Medical times Branch daily. docusate 2020-04 Yes [id number] 100mg Take 1 [facility] nivers 100 mg 0-28 capsule by ity of capsule 00:00: mouth 2 [place] (two) Medical times Branch daily. docusate 2020-04 Yes [id number] 100mg Take 1 [facility] n[facility] 100 mg 0-28 capsule by ity of capsule 00:00: mouth 2 [place] 00 (two) Medical times Branch daily. docusate 2020-04 Yes [id number] 100mg Take 1 [facility] nivers 100 mg 0-28 capsule by ity of capsule 00:00: mouth 2 [place] 00 (two) Medical times Branch daily. docusate 2020-04 Yes [id number] 100mg Take 1 [facility] 100 mg 0-28 capsule by ity of capsule 00:00: mouth 2 [place] (two) Medical times Branch daily. docusate 2020-04 Yes [id number] 100mg Take 1 [facility] 100 mg 0-28 capsule by ity of capsule 00:00: mouth 2 [place] (two) Medical times Branch daily. docusate 2020-04 Yes [id number] 100mg Take 1 [facility] 100 mg 0-28 capsule by ity of capsule 00:00: mouth 2 [place] (two) Medical times Branch daily. docusate 2020-04 Yes [id number] 100mg Take 1 [facility] n[facility] 100 mg 0-28 capsule by ity of capsule 00:00: mouth 2 [place] (two) Medical times Branch daily. docusate 2020-04 Yes [id number] 100mg Take 1 [facility] nivers 100 mg 0-28 capsule by ity of capsule 00:00: mouth 2 [place] (two) Medical times Branch daily. docusate 2020-04- No [id number] 100mg Take 1 [facility] 100 mg 0-28 02-22 capsule by ity of capsule 00:00: 00:00 mouth 2 [place] 00 :00 (two) Medical times Branch daily. docusate 2020-04- No [id number] 100mg Take 1 [facility] 100 mg 0-28 02-22 capsule by ity of capsule 00:00: 00:00 mouth 2 [place] 00 :00 (two) Medical times Branch daily. docusate 2020-04- No [id number] 100mg Take 1 [facility] 100 mg 0-28 [...] 4-21 mouth ity of capsule 00:00: daily. [place] [address] Medical Branch lidocaine 5 2017-0 Yes Univer [...] 4-21 mouth ity of capsule 00:00: daily. [place] 00 Medical Branch lidocaine 5 2017-0 Yes [...] EC 4-14 ity of tablet 00:00: [place] 00 Medical Branch pantoprazol 2017-0 Yes Univer s e 40 mg EC 4-14 ity of tablet 00:00: [place] [facility] pantoprazol 2017-0 Yes Univer s e 40 mg EC 4-14 ity of tablet 00:00: [place] [facility] pantoprazol 2017-0 Yes Univer s e 40 mg EC 4-14 ity of tablet 00:00: [place] [facility] Branch pantoprazol 2017-0 Yes Univer s e 40 mg EC 4-14 ity of tablet 00:00: [place] [facility] pantoprazol 2017-0 Yes Univer s e 40 mg EC 4-14 ity of tablet 00:00: [place] [facility] pantoprazol 2017-0 Yes Univer s e 40 mg EC 4-14 ity of tablet 00:00: [place] [facility] pantoprazol 2017-0 Yes Univer s e 40 mg EC 4-14 ity of tablet 00:00: [place] [facility] pantoprazol 2017-0 Yes Univer s e 40 mg EC 4-14 ity of tablet 00:00: [place] [facility] pantoprazol 2017-0 Yes Univer s e 40 mg EC 4-14 ity of tablet 00:00: [place] [facility] pantoprazol 2017-0 Yes Univer s e 40 mg EC 4-14 ity of tablet 00:00: [place] [facility] pantoprazol 2017-0 Yes Univer s e 40 mg EC 4-14 ity of tablet 00:00: [place] [facility] pantoprazol 2017-0 Yes Univer s e 40 mg EC 4-14 ity of tablet 00:00: [place] [facility] pantoprazol 2017-0 Yes Univer s e 40 mg EC 4-14 ity of tablet 00:00: [place] [facility] pantoprazol 2017-0 Yes Univer s e 40 mg EC 4-14 ity of tablet 00:00: [place] [facility] pantoprazol 2017-0 Yes Univer s e 40 mg EC 4-14 ity of tablet 00:00: [place] [facility] pantoprazol 2017-0 Yes Univer s e 40 mg EC 4-14 ity of tablet 00:00: [place] [facility] pantoprazol 2017-0 Yes Univer s e 40 mg EC 4-14 ity of tablet 00:00: [place] [facility] Branch pantoprazol 2017-0 Yes Univer s e 40 mg EC 4-14 ity of tablet 00:00: [place] [facility] pantoprazol 2017-0 Yes Univer s e 40 mg EC 4-14 ity of tablet 00:00: [place] [facility] Branch pantoprazol 2017-0 Yes Univer s e 40 mg EC 4-14 ity of tablet 00:00: [place] [facility] pantoprazol 2017-0 Yes Univer s e 40 mg EC 4-14 ity of tablet 00:00: [place] [facility] pantoprazol 2017-0 Yes Univer s e 40 mg EC 4-14 ity of tablet 00:00: [place] [facility] pantoprazol 2017-0 Yes Univer s e 40 mg EC 4-14 ity of tablet 00:00: [place] [facility] pantoprazol 2017-0 Yes Univer s e 40 mg EC 4-14 ity of tablet 00:00: [place] [facility] pantoprazol 2017-0 Yes Univer s e 40 mg EC 4-14 ity of tablet 00:00: [place] [facility] pantoprazol 2017-0 Yes Univer s e 40 mg EC 4-14 ity of tablet 00:00: [address] pantoprazol 2017-0 Yes Univer s e 40 mg EC 4-14 ity of tablet 00:00: [place] [facility] pantoprazol 2017-0 Yes Univer s e 40 mg EC 4-14 ity of tablet 00:00: [place] [facility] pantoprazol 2017-0 Yes Univer s e 40 mg EC 4-14 ity of tablet 00:00: [place] [facility] pantoprazol 2017-0 Yes Univer s e 40 mg EC 4-14 ity of tablet 00:00: [place] [facility] Branch pantoprazol 2017-0 Yes Univer s e 40 mg EC 4-14 ity of tablet 00:00: [place] [facility] pantoprazol 2017-0 Yes Univer s e 40 mg EC 4-14 ity of tablet 00:00: [place] [facility] Branch pantoprazol 2017-0 Yes Univer s e 40 mg EC 4-14 ity of tablet 00:00: [place] [facility] pantoprazol 2017-0 Yes Univer s e 40 mg EC 4-14 ity of tablet 00:00: [place] 00 Medical Branch pantoprazol 2017-0 Yes Univer s e 40 mg EC 4-14 ity of tablet 00:00: [place] [facility] pantoprazol 2017-0 Yes Univer s e 40 mg EC 4-14 ity of tablet 00:00: [place] [facility] pantoprazol 2017-0 Yes Univer s e 40 mg EC 4-14 ity of tablet 00:00: [place] [facility] pantoprazol 2017-0 Yes Univer s e 40 mg EC 4-14 ity of tablet 00:00: [place] [facility] Branch pantoprazol 2017-0 Yes Univer s e 40 mg EC 4-14 ity of tablet 00:00: [place] [facility] pantoprazol 2017-0 Yes Univer s e 40 mg EC 4-14 ity of tablet 00:00: [place] [facility] pantoprazol 2017-0 Yes Univer s e 40 mg EC 4-14 ity of tablet 00:00: [place] [facility] pantoprazol 2017-0 Yes Univer s e 40 mg EC 4-14 ity of tablet 00:00: [place] [facility] Branch pantoprazol 2017-0 Yes Univer s e 40 mg EC 4-14 ity of tablet 00:00: [address] pantoprazol 2017-0 Yes Univer s e 40 mg EC 4-14 ity of tablet 00:00: [address] pantoprazol 2017-0 Yes Univer s e 40 mg EC 4-14 ity of tablet 00:00: [address] Branch pantoprazol 2017-0 Yes Univer s e 40 mg EC 4-14 ity of tablet 00:00: [place] [facility] Branch pantoprazol 2017-0 Yes Univer s e 40 mg EC 4-14 ity of tablet 00:00: [place] [facility] Branch pantoprazol 2017-0 Yes Univer s e 40 mg EC 4-14 ity of tablet 00:00: [place] [facility] Branch pantoprazol 2017-0 Yes Univer s e 40 mg EC 4-14 ity of tablet 00:00: [place] [facility] pantoprazol 2017-0 Yes Univer s e 40 mg EC 4-14 ity of tablet 00:00: [place] [facility] pantoprazol 2017-0 Yes Univer s e [...] 00 :00 daily. Medical Branch aspirin 81 2015-2022- No 81mg Take 1 [facility] ers mg [...] Immunizations Ordered Filled Immunization Date Status Comments [facility] e Immunization Name Name Influenza Virus [...] 15:38:00 137 mm[Hg] Univer sity of pressure [place] [facility] Diastolic blood 2022-06-25 15:38:00 46 mm[Hg] Unive rsity of pressure [place] [facility] Heart rate 2022-06-25 15:38:00 56 /min [facility] Body temperature 2022-06-25 15:38:00 36.11 [place] [facility] Respiratory rate 2022-06-25 15:38:00 17 /min [facility] Body height 2022-06-25 15:38:00 160 cm [facility] Body weight 2022-06-25 15:38:00 46.494 kg [facility] BMI 2022-06-25 15:38:00 18.16 kg/m2 [facility] Systolic blood 2022-06-12 13:39:00 124 mm[Hg] Univer sity of [facility] Diastolic blood 2022-06-12 13:39:00 56 mm[Hg] Unive rsity of pressure [facility] Heart rate 2022-06-12 13:39:00 74 /min [facility] Body temperature 2022-06-12 13:39:00 36.67 Allie [facility] Respiratory rate 2022-06-12 13:39:00 18 /min [facility] Oxygen saturation in 2022-06-12 13:39:00 100 /min [facility] Arterial blood by [facility] Pulse oximetry Branch Body weight 2022-06-12 10:12:00 46.494 kg [facility] BMI 2022-06-12 10:12:00 18.16 kg/m2 [facility] Body height 2022-06-06 23:33:00 160 cm [facility] HEIGHT 2022-05-18 09:00:00 160 cm WEIGHT 2022-05-18 09:00:00 47.9 kg HEIGHT 2022-05-18 09:00:00 160 cm WEIGHT 2022-05-18 09:00:00 47.9 kg HEIGHT 2022-05-18 09:00:00 160 cm WEIGHT 2022-05-18 09:00:00 47.9 kg Systolic blood 2022-05-10 17:56:00 153 mm[Hg] [facility] Diastolic blood 2022-05-10 17:56:00 47 mm[Hg] [facility] Heart rate 2022-05-10 17:54:00 68 /min [facility] Respiratory rate 2022-05-10 17:54:00 20 /min [facility] Body height 2022-05-10 17:54:00 160 cm [facility] Body weight 2022-05-10 17:54:00 46.085 kg [facility] BMI 2022-05-10 17:54:00 18.00 kg/m2 [facility] Oxygen saturation in 2022-05-10 17:54:00 99 /min University of Arterial blood by [facility] Pulse oximetry Branch Systolic blood 2022-02-28 19:10:00 161 mm[Hg] [facility] Diastolic blood 2022-02-28 19:10:00 59 mm[Hg] [facility] Heart rate 2022-02-28 19:10:00 50 /min [facility] Oxygen saturation in 2022-02-28 19:10:00 100 /min University of Arterial blood by [facility] Pulse oximetry Branch Body temperature 2022-02-28 19:08:00 36.11 Allie [facility] Respiratory rate 2022-02-28 19:08:00 16 /min [facility] Body weight 2022-02-28 19:08:00 49.125 kg [facility] BMI 2022-02-28 19:08:00 19.18 kg/m2 [facility] Systolic blood 2022-06-25 15:38:00 137 mm[Hg] [facility] Diastolic blood 2022-06-25 15:38:00 46 mm[Hg] [facility] Heart rate 2022-06-25 15:38:00 56 /min [facility] Body temperature 2022-06-25 15:38:00 36.11 Allie [facility] Respiratory rate 2022-06-25 15:38:00 17 /min [facility] Body height 2022-06-25 15:38:00 160 cm [facility] Body weight 2022-06-25 15:38:00 46.494 kg [facility] BMI 2022-06-25 15:38:00 18.16 kg/m2 [facility] Systolic blood 2022-06-12 13:39:00 124 mm[Hg] Univer sity of pressure [facility] Diastolic blood 2022-06-12 13:39:00 56 mm[Hg] Unive rsity of [facility] Heart rate 2022-06-12 13:39:00 74 /min [facility] Body temperature 2022-06-12 13:39:00 36.67 Allie [facility] Respiratory rate 2022-06-12 13:39:00 18 /min [facility] O[facility] saturation in 2022-06-12 13:39:00 100 /min [facility] Arterial blood by [facility] Pulse oximetry Branch Body weight 2022-06-12 10:12:00 46.494 kg [facility] BMI 2022-06-12 10:12:00 18.16 kg/m2 [facility] Body height 2022-06-06 23:33:00 160 cm Universi ty [facility] Systolic blood 2022-05-27 16:06:00 109 mm[Hg] [facility] Diastolic blood 2022-05-27 16:06:00 53 mm[Hg] [facility] Heart rate 2022-05-27 16:03:00 69 /min [facility] Body temperature 2022-05-27 16:03:00 37.11 Allie [facility] Respiratory rate 2022-05-27 16:03:00 17 /min [facility] Oxygen saturation in 2022-05-27 16:03:00 96 /min [facility] Arterial blood by Medical nter Pulse oximetry Systolic blood 2022-05-24 07:00:00 117 mm[Hg] [facility] Diastolic blood 2022-05-24 07:00:00 73 mm[Hg] [facility] Heart rate 2022-05-24 07:00:00 81 /min [facility] Body temperature 2022-05-24 07:00:00 36.67 Allie [facility] Respiratory rate 2022-05-24 07:00:00 15 /min [facility] Oxygen saturation in 2022-05-24 07:00:00 96 /min [facility] Arterial blood by Medical Ce nter Pulse oximetry Systolic blood 2022-05-22 08:00:00 126 mm[Hg] [facility] Diastolic blood 2022-05-22 08:00:00 62 mm[Hg] [facility] Heart rate 2022-05-22 08:00:00 63 /min [facility] Respiratory rate 2022-05-22 08:00:00 24 /min [facility] Oxygen saturation in 2022-05-22 08:00:00 98 /min [facility] Arterial blood by Medical Ce [facility]ter Pulse oximetry Body temperature 2022-05-21 16:00:00 36.67 Allie [facility] Systolic blood 2022-05-21 08:23:00 127 mm[Hg] [facility] Diastolic blood 2022-05-21 08:23:00 65 mm[Hg] [facility] Heart rate 2022-05-21 07:30:00 76 /min [facility] Respiratory rate 2022-05-21 07:30:00 17 /min [facility] Oxygen saturation in 2022-05-21 07:30:00 98 /min [facility] Arterial blood by Medical Ce nter Pulse oximetry Body temperature 2022-05-21 00:00:00 36.17 Allie [facility] Body height 2022-05-18 09:00:00 160 cm [facility] Body weight 2022-05-18 09:00:00 47.9 kg [facility] BMI 2022-05-18 09:00:00 18.71 kg/m2 [facility] Procedures Procedure Date / Time Performing Clinician Source Performed XR HIPS 2 VW RIGHT 2022-08-01 15:29:05 Joseph Cortes [facility] CONSENT/REFUSAL FOR 2022-08-01 15:11:45 [facility] Unassigned, [facility] ASSIGNMENT OF BENEFITS 2022-08-01 15:11:28 Doctor Unassigned, No [facility] PROTHROMBIN TIME / INR 2022-07-10 14:51:00 [place] [facility] CONSENT/REFUSAL FOR 2022-07-10 14:37:14 Doctor Unassigned, No [facility] CONSENT/REFUSAL FOR 2022-07-10 14:37:14 [facility] ASSIGNMENT OF BENEFITS 2022-07-10 14:36:56 Doctor Unassigned, No [facility] ASSIGNMENT OF BENEFITS 2022-07-10 14:36:56 Doctor Unassigned, No [facility] PROTHROMBIN TIME / INR 2022-06-25 15:22:00 [place] [facility] PROTHROMBIN TIME / INR 2022-06-12 08:34:00 Mariia Cardona [facility] 2022-06-12 08:34:00 Leslie Espitia [facility] BASIC METABOLIC PANEL 2022-06-12 08:34:00 Leslie Espitai [facility] (NA, K, CL, CO2, GLUCOSE, Medica l Branch BUN, CREATININE, CA) CBC WITH DIFF 2022-06-12 08:34:00 Leslie Espitia [facility] ACTIVATED PARTIAL 2022-06-12 08:34:00 Shawanda Lagos [facility] MAG[facility] 2022-06-12 08:34:00 Leslie Espitia [facility] BASIC METABOLIC PANEL 2022-06-12 08:34:00 Leslie Espitia [facility] (NA, K, CL, CO2, GLUCOSE, Medica l Branch BUN, CREATININE, CA) CBC WITH DIFF 2022-06-12 08:34:00 Leslie Espitia [facility] PROTHROMBIN TIME / INR 2022-06-12 08:34:00 Mariia Cardona Un [facility] ACTIVATED PARTIAL 2022-06-12 08:34:00 Demond [facility] ACTIVATED PARTIAL 2022-06-12 02:29:00 Demond [facility] ACTIVATED PARTIAL 2022-06-12 02:29:00 Demond [facility] EXTRA TUBE LT. GREEN 2022-06-12 00:00:00 Mariia Cardona [facility] EXTRA TUBE LT. GREEN 2022-06-12 00:00:00 [facility] 2022-06-11 19:48:00 Leslie Espitia [facility] BLOOD CULTURE SCREEN 2022-06-11 19:48:00 Leslie Espitia [facility] BLOOD CULTURE SCREEN 2022-06-11 19:42:00 Leslie Espitia [facility] BLOOD CULTURE SCREEN 2022-06-11 19:42:00 Leslie Espitia [facility] TRANSESOPHAGEAL ECHO 2022-06-11 15:58:00 Siddharth Chicas [facility] (MAR[place]) COMPLETE W/ DOPPLER [facility]ando R[facility] AND COLOR TRANSESOPHAGEAL ECHO 2022-06-11 15:58:00 Juan Francisco Siddharth [facility] ([place]) COMPLETE W/ DOPPLER [facility] AND COLOR ACTIVATED PARTIAL 2022-06-11 14:52:00 Demond [facility] ACTIVATED PARTIAL 2022-06-11 14:52:00 Demond [facility] PROTHROMBIN TIME / INR 2022-06-11 08:57:[address] [facility] BASIC METABOLIC PANEL 2022-06-11 08:57:00 Les Ortega [facility] (NA, K, CL, CO2, GLUCOSE, Medica l Branch BUN, CREATININE, CA) MAGNESIUM 2022-06-11 08:57:00 Les Ortega [facility] ACTIVATED PARTIAL 2022-06-11 08:57:00 Demond [facility] MAGNESIUM 2022-06-11 08:57:00 Les Ortega [facility] BASIC METABOLIC PANEL 2022-06-11 08:57:00 Les Ortega [facility] (NA, K, CL, CO2, GLUCOSE, Medica l Branch BUN, CREATININE, CA) PROTHROMBIN TIME / INR 2022-06-11 08:57:[address] [facility] ACTIVATED PARTIAL 2022-06-11 08:57:00 Demond [facility] HB ECG ROUTINE & RHYTHM 2022-06-11 07:47:48 Jordan [facility] ACTIVATED PARTIAL 2022-06-10 20:19:00 Demond [facility] ACTIVATED PARTIAL 2022-06-10 20:19:00 Demond [facility] HB ECG ROUTINE & RHYTHM 2022-06-10 16:35:44 Jordan [facility] HB ECG ROUTINE & RHYTHM 2022-06-10 16:35:44 Jordan [facility] MAGNESIUM 2022-06-10 08:20:00 Leslie Espitia [facility] BASIC METABOLIC PANEL 2022-06-10 08:20:00 Leslie Espitia [facility] (NA, K, CL, CO2, GLUCOSE, Medica l Branch BUN, CREATININE, CA) CBC WITH DIFF 2022-06-10 08:20:00 Leslie Espitia [facility] PROTHROMBIN TIME / INR 2022-06-10 08:20:00 [facility] 2022-06-10 08:20:00 Demond [facility] MAGNESIUM 2022-06-10 08:20:00 Omkar eda [facility] BASIC METABOLIC PANEL 2022-06-10 08:20:00 Omkar eda [facility] (NA, K, CL, CO2, GLUCOSE, Medica l Branch BUN, CREATININE, CA) CBC WITH DIFF 2022-06-10 08:20:00 Leslie Espitia [facility] PROTHROMBIN TIME / INR 2022-06-10 08:20:00 Leslie Espitia [facility] ACTIVATED PARTIAL 2022-06-10 08:20:00 Demond, [facility] EKG-12 LEAD 2022-06-10 04:08:10 Aicha melony [facility] ACTIVATED PARTIAL 2022-06-09 23:33:00 Demond, [facility] ACTIVATED PARTIAL 2022-06-09 23:33:00 Demond, [facility] ACTIVATED PARTIAL 2022-06-09 22:22:00 Demond, [facility] ACTIVATED PARTIAL 2022-06-09 22:22:00 Demond, [facility] BASIC METABOLIC PANEL 2022-06-09 20:19:00 Demond [facility] (NA, K, CL, CO2, GLUCOSE, Medica l Branch BUN, CREATININE, CA) BASIC METABOLIC PANEL 2022-06-09 20:19:00 Demond [facility] (NA, K, CL, CO2, GLUCOSE, Medica l Branch BUN, CREATININE, CA) HB ECG ROUTINE & RHYTHM 2022-06-09 16:45:40 Demond [facility] HB ECG ROUTINE & RHYTHM 2022-06-09 16:45:40 Demond [facility] MAGNESIUM 2022-06-09 10:03:00 Leslie Espitia [facility] BASIC METABOLIC PANEL 2022-06-09 10:03:00 [facility] (NA, K, CL, CO2, GLUCOSE, Medica l Branch BUN, CREATININE, CA) CBC WITH DIFF 2022-06-09 10:03:00 Leslie Espitia [facility] PROTHROMBIN TIME / INR 2022-06-09 10:03:[address] [facility] MAGNESIUM 2022-06-09 10:03:00 Leslie Espitia [facility] BASIC METABOLIC PANEL 2022-06-09 10:03:00 Leslie Espitia [facility] (NA, K, CL, CO2, GLUCOSE, Medica l Branch BUN, CREATININE, CA) CBC WITH DIFF 2022-06-09 10:03:[address] [facility] / INR 2022-06-09 10:03:[address] [facility] EKG-12 LEAD 2022-06-09 04:12:20 Taylor HemMariia wright [facility] EKG-12 LEAD 2022-06-09 04:12:20 Taylor Hemyari [facility] PROTHROMBIN TIME / INR 2022-06-08 17:35:00 Leslie Espitia [facility] PROTHROMBIN TIME / INR 2022-06-08 17:35:00 Leslie Espitia [facility] EKG-12 LEAD 2022-06-08 17:18:35 Taylor Hemyamarcello [facility] EKG-12 LEAD 2022-06-08 17:18:35 Taylor HemMariia wright [facility] MAGNESIUM 2022-06-08 10:46:[address] [facility] BAS[facility] MET[facility]OLIC PANEL 2022-06-08 10:46:00 Leslie Espitia [facility] (NA, K, CL, CO2, GLUCOSE, Medica l Branch BUN, CREATININE, CA) CBC WITH DIFF 2022-06-08 10:46:00 Leslie Espitia [facility] MAGNESIUM 2022-06-08 10:46:00 Leslie Espitia [facility] BASIC METABOLIC PANEL 2022-06-08 10:46:00 Omkar eda [facility] (NA, K, CL, CO2, GLUCOSE, Medica l Branch BUN, CREATININE, CA) CBC WITH DIFF 2022-06-08 10:46:00 Leslie Espitia [facility] EKG-12 LEAD 2022-06-08 03:55:51 Taylor Connell [facility] EKG-12 LEAD 2022-06-08 03:55:51 Taylor Connell [facility] TRANSTHORACIC ECHO (TTE) 2022-06-07 17:56:10 Taylor Connell [facility] TRANSTHORACIC ECHO (TTE) 2022-06-07 17:56:10 Taylor Connell [facility] HB ECG ROUTINE & RHYTHM 2022-06-07 15:36:46 Leslie Espitia [facility] HB ECG ROUTINE & RHYTHM 2022-06-07 15:36:46 Leslie Espitia [facility] URINE DRUG (LCMSMS) - 2022-06-07 15:01:00 Opal Yen [facility] COMPREHENSIVE DRUG PANEL Medical Branch URINE DRUG (LCMSMS) - 2022-06-07 15:01:00 Opal Yen [facility] COMPREHENSIVE DRUG PANEL Medical Branch CBC WITH DIFF 2022-06-07 10:51:00 Opal Yen [facility] BASIC METABOLIC PANEL 2022-06-07 10:51:00 Opal Yen [facility] (NA, K, CL, CO2, GLUCOSE, Medica l Branch BUN, CREATININE, CA) IRON PANEL 2022-06-07 10:51:00 Opal Yen [facility] BASIC METABOLIC PANEL 2022-06-07 10:51:00 [facility] (NA, K, CL, CO2, GLUCOSE, Medica l Branch BUN, CREATININE, CA) IRON PANEL 2022-06-07 10:51:00 Opal Yen [facility] CBC WITH DIFF 2022-06-07 10:51:00 Opal Yen [facility] BASIC METABOLIC PANEL 2022-06-07 02:29:00 Opal Yen [facility] (NA, K, CL, CO2, GLUCOSE, Medica l Branch BUN, CREATININE, CA) HEPATIC FUNCTION PANEL 2022-06-07 02:29:00 Opal Yen [facility] ([id number]) (ALB,T.PRO,BILI Medical Branch T,BU/BC,ALT,AST,ALK PHOS) MAGNESIUM 2022-06-07 02:29:00 Opal Yen [facility] FOLATE 2022-06-07 02:29:00 Opal Yen [facility] MAGNESIUM 2022-06-07 02:29:00 Opal Yen [facility] FOLATE 2022-06-07 02:29:00 Opal Yen [facility] HEPATIC FUNCTION PANEL 2022-06-07 02:29:00 Opal Yen [facility] ([id number]) (ALB,T.PRO,BILI Medical Branch T,BU/BC,ALT,AST,ALK PHOS) BASIC METABOLIC PANEL 2022-06-07 02:29:00 Opal Yen [facility] (NA, K, CL, CO2, GLUCOSE, Medica l Branch BUN, CREATININE, CA) HB ECG ROUTINE & RHYTHM 2022-06-07 00:50:00 Opal Yen [facility] PROTHROMBIN TIME / INR 2022-06-07 00:33:00 Opal Yen [facility] ACTIVATED PARTIAL 2022-06-07 00:33:00 Opal Yen [facility] WITH DIFF 2022-06-07 00:33:00 Opal Yen [facility] FERRITIN SERUM 2022-06-07 00:33:00 Opal Yen [facility] VITAMIN B12, LEVEL 2022-06-07 00:33:00 FarshadOpal [facility] FERRITIN SERUM 2022-06-07 00:33:00 FarshadOpal [facility] VITAMIN B12, LEVEL 2022-06-07 00:33:00 FarshadOpal [facility] CBC WITH DIFF 2022-06-07 00:33:00 FarshadOpal [facility] PROTHROMBIN TIME / INR 2022-06-07 00:33:00 FarshadOpal [facility]IVATED PART[facility] 2022-06-07 00:33:00 FarshadOpal [facility] / INR 2022-06-06 16:10:00 Jamaica Dan [facility] HOSPITAL ADMISSION 2022-06-06 06:01:00 Doctor Unassigned, No Uni versity [facility] CBC W/PLT COUNT & AUTO 2022-05-27 04:37:00 Rick [facility] PROTHROMBIN TIME/INR 2022-05-27 04:37:[address] [facility] MAGNESIUM 2022-05-27 04:37:00 [facility] BASIC METABOLIC PANEL 2022-05-27 04:37:00 Rubén Me[facility]hanmindy [facility] CBC W/PLT COUNT & AUTO 2022-05-27 04:37:00 Rick [facility] APTT 2022-05-26 09:28:00 [facility] W/PLT COUNT & AUTO 2022-05-26 06:27:00 Rick [facility] PROTHROMBIN TIME/INR 2022-05-26 06:27:[address] [facility] MAGNESIUM 2022-05-26 06:27:00 Rubén [facility] BASIC METABOLIC PANEL 2022-05-26 06:27:00 Meaghan [facility] APTT 2022-05-26 06:27:00 Efrain [facility] CBC W/PLT COUNT & AUTO 2022-05-26 06:27:00 [facility] APTT 2022-05-26 00:28:00 [employer], [facility] APTT 2022-05-25 22:25:00 Efrain, [facility] APTT 2022-05-25 14:41:00 [employer], [facility] APTT 2022-05-25 12:13:00 [employer], [facility] BASIC METABOLIC PANEL 2022-05-25 07:29:00 Robert [facility] MAGNESIUM 2022-05-25 07:29:00 Robert, [facility] ECG 12-LEAD 2022-05-25 06:42:59 Unknown, [facility] ECG 12-LEAD 2022-05-25 06:42:59 Robert, [facility] ECG 12-LEAD 2022-05-25 06:42:59 Unknown, [facility] APTT 2022-05-25 05:57:00 [employer], [facility] APTT 2022-05-25 04:47:00 Efrain [facility] CBC W/PLT COUNT & AUTO 2022-05-25 03:20:00 Rick, [facility] PROTHROMBIN TIME/INR 2022-05-25 03:20:00 Rick, [facility] APTT 2022-05-25 03:20:00 Meaghan [place] [facility] CBC W/PLT COUNT & AUTO 2022-05-25 03:20:00 Rick [facility] APTT 2022-05-24 20:02:00 Efrain [facility] APTT 2022-05-24 17:36:00 [employer], [facility] APTT 2022-05-24 10:31:00 Rick, [facility] APTT 2022-05-24 03:41:00 [employer], [facility] APTT 2022-05-24 01:14:00 [employer], [facility] CBC W/PLT COUNT & AUTO 2022-05-24 01:14:00 Rick, [facility] BASIC METABOLIC PANEL 2022-05-24 01:14:00 Rick, [facility] MAGNESIUM 2022-05-24 01:14:00 Rick, [facility] PHOSPHORUS 2022-05-24 01:14:00 Rick, [facility] PROTHROMBIN TIME/INR 2022-05-24 01:14:00 Rick, [facility] CBC W/PLT COUNT & AUTO 2022-05-24 01:14:00 Rick, [facility] APTT 2022-05-23 18:18:[address] [facility] ([place], [place]) APTT 2022-05-23 16:11:[address] [facility] ([place] [place] APTT 2022-05-23 08:24:[address] [facility] [place] CBC W/PLT COUNT & AUTO 2022-05-23 04:23:00 Rick, [facility] BASIC METABOLIC PANEL 2022-05-23 04:23:00 Rick, [facility] MAGNESIUM 2022-05-23 04:23:00 Rick, [facility] PHOSPHORUS 2022-05-23 04:23:00 Rick, [facility] PROTHROMBIN TIME/INR 2022-05-23 04:23:00 Rick, [facility] APTT 2022-05-23 04:23:00 [employer], [facility] [place] CBC W/PLT COUNT & AUTO 2022-05-23 04:23:00 Rick, [facility] APTT 2022-05-22 20:49:00 Efrain [facility] HEMOGLOBIN AND HEMATOCRIT 2022-05-22 17:54:00 Rick, [facility] APTT 2022-05-22 13:59:00 Efrain [facility] CBC W/PLT COUNT & AUTO 2022-05-22 02:47:00 Rick, [facility] BASIC METABOLIC PANEL 2022-05-22 02:47:00 Rick, [facility] MAGNESIUM 2022-05-22 02:47:00 Rick, [facility] PHOSPHORUS 2022-05-22 02:47:00 Rcik, [facility] PROTHROMBIN TIME/INR 2022-05-22 02:47:00 Rick, [facility] APTT 2022-05-22 02:47:00 SereniBertrand jimenes [facility] [place] CBC W/PLT COUNT & AUTO 2022-05-22 02:47:00 Rick, [facility] PREPARE RBC 2022-05-21 23:54:00 AdhiVinayak [facility] HEMOGLOBIN AND HEMATOCRIT 2022-05-21 21:35:00 Rick, [facility] PROTHROMBIN TIME/INR 2022-05-21 14:45:00 Rick, [facility] APTT 2022-05-21 14:45:00 [employer] [facility] 2D ECHO W/ DOPPLER 2022-05-21 13:06:46 Vitaly Flores [facility] (CW/PW/COLOR) [place] HEMOGLOBIN AND HEMATOCRIT 2022-05-21 12:50:00 Rick, [facility] TSH/FREE T4 IF INDICATED 2022-05-21 12:50:00 Efrain [facility] APTT 2022-05-21 08:34:00 [facility] W/PLT COUNT & AUTO 2022-05-21 05:00:00 [facility]io [facility] BASIC METABOLIC PANEL 2022-05-21 05:00:00 [facility] 2022-05-21 05:00:00 RickKatarina [facility] PHOSPHORUS 2022-05-21 05:00:00 [facility] CBC W/PLT COUNT & AUTO 2022-05-21 05:00:00 Rick, [facility] PROTHROMBIN TIME/INR 2022-05-21 01:15:00 Rick, [facility] APTT 2022-05-21 01:15:00 Efrain [facility] HEMOGLOBIN AND HEMATOCRIT 2022-05-20 20:25:00 RickRio [facility] [facility] PROTHROMBIN TIME/INR 2022-05-20 17:07:00 Rick, [facility] APTT 2022-05-20 17:07:00 Shadi Church [facility] HEMOGLOBIN AND HEMATOCRIT 2022-05-20 13:03:[address] [facility] AP[facility] 2022-05-20 13:02:00 Lynnette Hsu [facility] TRANSFUSE LEUKO-REDUCED 2022-05-20 08:38:00 Damir Joyce [facility] RED BLOOD CELLS Center PREPARE RBC 2022-05-20 08:19:00 Vinayak Cook [facility] APTT 2022-05-20 05:03:00 Efrain [facility] CBC W/PLT COUNT & AUTO 2022-05-20 03:36:00 Rick, [facility] BASIC METABOLIC PANEL 2022-05-20 03:36:00 [facility] MAGNESIUM 2022-05-20 03:36:00 [facility] PHOSPHORUS 2022-05-20 03:36:00 Rick, [facility] PROTHROMBIN TIME/INR 2022-05-20 03:36:00 Rick, [facility] CBC W/PLT COUNT & AUTO 2022-05-20 03:36:00 Rick [facility] APTT 2022-05-19 22:59:00 [facility] 2022-05-19 21:17:00 Rick, [facility] PROTHROMBIN TIME/INR 2022-05-19 17:05:00 Rick, [facility] APTT 2022-05-19 17:05:00 [facility] HEMO[facility] HEMATOCRIT 2022-05-19 12:11:00 Rick, [facility] PROTHROMBIN TIME/INR 2022-05-19 12:11:00 [facility]-LEAD 2022-05-19 11:39:33 Unknown, Hl[facility] ECG 12-LEAD 2022-05-19 11:39:33 Vitaly Flores [facility] ECG 12-LEAD 2022-05-19 11:39:33 Unknown, Hl[facility] POCT-GLUCOSE METER 2022-05-19 05:28:00 Shadi Church [facility] Emilio [place] CBC W/PLT COUNT & AUTO 2022-05-19 03:08:00 Rick [facility] CBC W/PLT COUNT & AUTO 2022-05-19 03:08:00 Rick, [facility] BASIC METABOLIC PANEL 2022-05-19 03:07:00 Rick, [facility] MAGNESIUM 2022-05-19 03:07:[address] [facility] PHOSPHORUS 2022-05-19 03:07:00 Rick, [facility] PROTHROMBIN TIME/INR 2022-05-19 03:07:00 Rick, [facility] POCT-GLUCOSE METER 2022-05-18 23:02:00 Adhdanii [facility] ECG 12-LEAD 2022-05-18 21:08:01 Unknown, Hl7 [facility] ECG 12-LEAD 2022-05-18 21:08:01 [facility] 2022-05-18 21:08:01 Unknown, Hl7 [facility] BUN AND CREATININE 2022-05-18 20:38:00 [facility] W/RATIO [facility] POTASSIUM 2022-05-18 20:38:00 [facility] MAGNESIUM 2022-05-18 20:38:00 [facility] HEMOGLOBIN AND HEMATOCRIT 2022-05-18 20:01:00 Rick [facility] POCT-GLUCOSE METER 2022-05-18 18:56:00 Adhdanii [facility] CTA ABDOMEN & PELVIS 2022-05-18 17:42:00 Rick, [facility] URINALYSIS W/ REFLEX 2022-05-18 15:23:00 Rick [facility] URINE CULTURE Center PROTHROMBIN TIME/INR 2022-05-18 15:23:[address] [facility] HIGH SENSITIVITY TROPONIN 2022-05-18 15:23:00 Rick [facility] URINE CULTURE 2022-05-18 15:23:[address] [facility] CBC (HEMOGRAM ONLY) 2022-05-18 13:05:00 Rick [facility] CALCIUM, IONIZED 2022-05-18 13:05:00 Rick [facility] POCT-GLUCOSE METER 2022-05-18 12:55:00 Sean Graham [facility] Jesus Alber[facility] ABORH, MANUAL 2022-05-18 11:55:00 Floridalma Monsalve [facility] TYPE AND SCREEN, 2022-05-18 11:02:00 Rick, [facility] AUTOMATED [place] COMPREHENSIVE METABOLIC 2022-05-18 11:01:00 Rick, [facility] PANEL Center MAGNESIUM 2022-05-18 11:01:00 Rick, [facility] PHOSPHORUS 2022-05-18 11:01:00 Rick, [facility] LACTIC ACID, VENOUS 2022-05-18 11:01:00 Rick, [facility] LIPASE 2022-05-18 11:01:00 Rick, [facility] B-TYPE NATRIURETIC FACTOR 2022-05-18 11:01:00 Rick, [facility] (BNP) [place] PT/APTT 2022-05-18 11:00:00 Rick, [facility] FIBRINOGEN 2022-05-18 11:00:00 Rick, [facility] ECG 12-LEAD 2022-05-18 10:34:14 Unknown, Hl7 [facility] ECG 12-LEAD 2022-05-18 10:34:14 Rick, [facility] ECG 12-LEAD 2022-05-18 10:34:14 Unknown, Hl7 [facility] HB ECG ROUTINE & RHYTHM 2022-05-10 17:51:31 Wayne Rabago [facility] PROTHROMBIN TIME / INR 2022-05-09 16:24:00 [place] Dan [facility] CONSENT/REFUSAL FOR 2022-05-09 16:13:00 Doctor Unassigned, No [facility] DIAGNOSIS AND TREATMENT [facility] Medical Branch ASSIGNMENT OF BENEFITS 2022-05-09 16:12:36 Doctor Unassigned, No [facility] Medical Branch ASSIGNMENT OF BENEFITS 2022-05-09 16:12:36 Doctor Unassigned, No [facility] PROTHROMBIN TIME / INR 2022-04-11 15:46:00 [place] [facility] CONSENT/REFUSAL FOR 2022-04-11 15:36:05 Doctor Unassigned, No [facility] Medical Branch ASSIGNMENT OF BENEFITS 2022-04-11 15:35:52 Doctor Unassigned, No [facility] Medical Branch ASSIGNMENT OF BENEFITS 2022-04-11 15:35:52 Doctor Unassigned, No [facility] MEDICATION CORRESPONDENCE 2022-03-18 06:01:00 Doctor Unassigned, No [facility] PROTHROMBIN TIME / INR 2022-03-14 15:29:00 [place] [facility] CONSENT/REFUSAL FOR 2022-03-14 15:15:12 Doctor Unassigned, No [facility] TREATMENT [facility] Medical Branch ASSIGNMENT OF BENEFITS 2022-03-14 15:15:00 Doctor Unassigned, No [facility] ASSIGNMENT OF BENEFITS 2022-03-14 15:15:00 Doctor Unassigned, No [facility] CONSENT/REFUSAL FOR 2022-02-28 18:42:52 Doctor Unassigned, No [facility] [place] DI[facility]NOSIS [facility] TREATMENT [facility] Medical Branch CONSENT/REFUSAL FOR 2022-02-14 14:32:17 Doctor Unassigned, No [facility] [place] DIAGNOSIS AND TREATMENT [facility] Medical Branch ASSIGNMENT OF BENEFITS 2022-02-14 14:32:04 Doctor Unassigned, No [facility] ASSIGNMENT OF BENEFITS 2021-12-14 17:04:14 Doctor Unassigned, No [facility] HOSPITAL ADMISSION 2021-11-23 05:01:00 Doctor Unassigned, No [facility] Plan of Care Planned Activity [facility] Future Scheduled 2003 SHINGLES VACCINES ([address] [facility] 00:00:00 2) [facility])] Future Scheduled 2003 SHINGLES VACCINES ([address] [facility] Test 00:00:00 2) [facility])] Future [...] breast Medical C enter (procedure) [code = 956825184] Future Scheduled 1953 CT Colonography (combo) [facility] Test 00:00:00 [code = [facility] Future Scheduled 1953 Screening for malignant [facility] Test 00:00:00 neoplasm of colon Medical Ce nter (procedure) [code = 743680538] Future Scheduled 1953 Screening for malignant [facility] Test 00:00:00 neoplasm of colon Medical Ce nter (procedure) [code = 339673803] Future Scheduled 1953 DXA SCAN [code = DXA [facility] Test 00:00:00 SCAN] [facility] Future Scheduled 1953 Screening for malignant [facility] Test 00:00:00 neoplasm of colon Medical Ce nter (procedure) [code = 487903126] Future Scheduled 1953 Screening for malignant [facility] Test 00:00:00 neoplasm of colon Medical Ce nter (procedure) [code = 710428089] Future Scheduled 1953 Sigmoidoscopy [code = [facility]:00 Sigmoidoscopy] [facility] Future Scheduled 1953 Screening for malignant [facility] Test 00:00:00 neoplasm of breast Medical C enter (procedure) [code = 903573537] Future Scheduled 1953 CT Colonography (combo) [facility] Test 00:00:00 [code = CT Colonography [facility] (combo)] Future Scheduled 1953 Screening for malignant [facility] Test 00:00:00 neoplasm of colon Medical Ce nter (procedure) [code = 270214133] Future Scheduled 1953 Screening for malignant [facility] Test 00:00:00 neoplasm of colon Medical Ce nter (procedure) [code = 010631955] Future Scheduled 1953 DXA SCAN [code = DXA [facility] Test 00:00:00 SCAN] [facility] Future Scheduled 1953 Screening for malignant [facility] Test 00:00:00 neoplasm of colon Medical Ce nter (procedure) [code = 312248834] Future Scheduled 1953 Screening for malignant [facility] Test 00:00:00 neoplasm of colon Medical Ce nter (procedure) [code = 015595024] Future Scheduled 1953 Sigmoidoscopy [facility]code = [facility] 00:00:00 S[facility]oidoscopy] [facility] Future Scheduled 1953 Screening for malignant [facility] Test 00:00:00 neoplasm of breast Medical C enter (procedure) [code = 156913878] Future Scheduled 1953 CT Colonography (combo) [facility] Test 00:00:00 [code = CT Colonography [facility] (combo)] Future Scheduled 1953 Screening for malignant [facility] Test 00:00:00 neoplasm of colon Medical Ce nter (procedure) [code = 679862643] Future Scheduled 1953 Screening for malignant [facility] Test 00:00:00 neoplasm of colon Medical Ce nter (procedure) [code = 232255125] Future Scheduled 1953 DXA SCAN [code = DXA [facility] Test 00:00:00 SCAN] [facility] Future Scheduled 1953 Screening for malignant [facility] Test 00:00:00 neoplasm of colon Medical Ce nter (procedure) [code = 496014186] Future Scheduled 1953 Screening for malignant [facility] Test 00:00:00 neoplasm of colon Medical Ce nter (procedure) [code = 070043646] Future Scheduled 1953 Sigmoidoscopy [facility]code [facility] Scre[facility] malignant [facility] Test 00:00:00 neoplasm of breast Medical C enter (procedure) [code = 071648546] Future Scheduled 1953 CT Colonography (combo) [facility] Test 00:00:00 [code = CT Colonography [facility] (combo)] Future Scheduled 1953 Screening for malignant [facility] Test 00:00:00 neoplasm of colon Medical Ce nter (procedure) [code = 521872283] Future Scheduled 1953 Screening for malignant [facility] Test 00:00:00 neoplasm of colon Medical Ce nter (procedure) [code = 581231463] Future Scheduled 1953 DXA SCAN [code = DXA [facility] Test 00:00:00 SCAN] [facility] Future Scheduled 1953 Screening for malignant [facility] Test 00:00:00 neoplasm of colon Medical Ce nter (procedure) [code = 502772011] Future Scheduled 1953 Screening for malignant [facility] Test 00:00:00 neoplasm of colon Medical Ce nter (procedure) [code = 571003018] Future Scheduled 1953 Sigmoidoscopy [facility]code = [facility] Screening for malignant [facility] Test 00:00:00 neoplasm of breast Medical C enter (procedure) [code = 403529244] Future Scheduled 1953 CT Colonography (combo) [facility] Test 00:00:00 [code = CT Colonography [facility] (combo)] Future Scheduled 1953 Screening for malignant [facility] Test 00:00:00 neoplasm of colon Medical Ce nter (procedure) [code = 052210141] Future Scheduled 1953 Screening for malignant [facility] Test 00:00:00 neoplasm of colon Medical Ce nter (procedure) [code = 453979464] Future Scheduled 1953 DXA SCAN [code = DXA [facility] Test 00:00:00 SCAN] [facility] Future Scheduled 1953 Screening for malignant [facility] Test 00:00:00 neoplasm of colon Medical Ce nter (procedure) [code = 712175796] Future Scheduled 1953 Screening for malignant [facility] Test 00:00:00 neoplasm of colon Medical Ce nter (procedure) [code = 454974785] Future Scheduled 1953 Sigmoidoscopy [code = [facility] 00:00:[facility] Sigmoidoscopy] [facility] Future Scheduled 1953 Screening for malignant [facility] Test 00:00:00 neoplasm of breast Medical C enter (procedure) [code = 521776474] Future Scheduled 1953 CT Colonography (combo) [facility] Test 00:00:00 [code = CT Colonography [facility] (combo)] Future Scheduled 1953 Screening for malignant [facility] Test 00:00:00 neoplasm of colon Medical Ce nter (procedure) [code = 600484242] Future Scheduled 1953 Screening for malignant [facility] Test 00:00:00 neoplasm of colon Medical Ce nter (procedure) [code = 429505886] Future Scheduled 1953 DXA SCAN [code = DXA [facility] Test 00:00:00 SCAN] [facility] Future Scheduled 1953 Screening for malignant [facility] Test 00:00:00 neoplasm of colon Medical Ce nter (procedure) [code = 379059235] Future Scheduled 1953 Screening for malignant [facility] Test 00:00:00 neoplasm of colon Medical Ce nter (procedure) [code = 007556324] Future Scheduled 1953 Sigmoidoscopy [code = [facility] 00:00:00 [facility]] [facility] 1953 Screening for malignant [facility] Test 00:00:00 neoplasm of breast Medical C enter (procedure) [code = 469285150] Future Scheduled 1953 CT Colonography (combo) [facility] Test 00:00:00 [code = CT Colonography [facility] (combo)] Future Scheduled 1953 Screening for malignant [facility] Test 00:00:00 neoplasm of colon Medical Ce nter (procedure) [code = 779493113] Future Scheduled 1953 Screening for malignant [facility] Test 00:00:00 neoplasm of colon Medical Ce nter (procedure) [code = 092391290] Future Scheduled 1953 DXA SCAN [code = DXA [facility] Test 00:00:00 SCAN] [facility] Future Scheduled 1953 Screening for malignant [facility] Test 00:00:00 neoplasm of colon Medical Ce nter (procedure) [code = 837735809] Future Scheduled 1953 Screening for malignant [facility] Test 00:00:00 neoplasm of colon Medical Ce nter (procedure) [code = 613445301] Future Scheduled 1953 Sigmoidoscopy [code = [facility] 00:00:00 Sigmoidoscopy] [facility] Future Scheduled 1953 Screening for malignant [facility] Test 00:00:00 neoplasm of breast Medical C enter (procedure) [code = 171554052] Future Scheduled 1953 CT Colonography (combo) [facility] Test 00:00:00 [code = CT Colonography [facility] (combo)] Future Scheduled 1953 Screening for malignant [facility] Test 00:00:00 neoplasm of colon Medical Ce nter (procedure) [code = 999930452] Future Scheduled 1953 Screening for malignant [facility] Test 00:00:00 neoplasm of colon Medical Ce nter (procedure) [code = 535938643] Future Scheduled 1953 DXA SCAN [code = DXA [facility] Test 00:00:00 SCAN] [facility] Future Scheduled 1953 Screening for malignant [facility] Test 00:00:00 neoplasm of colon Medical Ce nter (procedure) [code = 193131960] Future Scheduled 1953 Screening for malignant [facility] Test 00:00:00 neoplasm of colon Medical Ce nter (procedure) [code = 271829713] Future Scheduled 1953 Sigmoidoscopy [code = CH I [facility] Test 00:00:00 Sigmoidoscopy] Medical Cente r Encounters Start End Encounter Admission Attending Care Care Encounter Source Date/Time Date/Time Type Type Clinicians Facility Department ID 2022-08-16 Outpatient IBRAHIM, STLMLC [place] [id number] Common 12:00:[id number] [facility] 2022-08-15 Outpatient IBRAHIM, STLM[place] [id number] Common 15:12:[id number] [facility] 2022-08-14 Outpatient Odbson, [place] [id number] Common 08:50:[id number] [facility] 2022-06-05 Inpatient R [facility] PEORIAMALA [facility] [id number] Univers 07:56:00 [facility]-20 Inpatient R REBECA HOLCOMB [facility] [id number] Univers 15:24:28 REBECA HOLCOMB i ty [facility] 2021-09-21 Outpatient Dobson, [place] [id number] Common 10:27:[id number] [facility] 2022-11-08 2022-11-08 [facility] [id number] Univers 08:00:00 08:00:00 WAYNE ity [facility] 2022-08-28 2022-08-28 [facility] [id number] Univers 13:00:00 13:00:00 [place] perez o f [facility] 2022-08-22 2022-08-22 [facility]phone [facility] 1.2.024.649 [id number] Univers 00:00:00 00:00:00 [place] ARANDA 350.1.13.[address] [facility] 4.2.7.2.686 Jose Elias manzo PROFESSIO [phone] [place] [id number] [facility] 2022-08-01 2022-08-01 Outpatient R [facility] [id number] Univers 10:11:06 23:59:00 JOSEPH ity of [facility] 2022-08-01 2022-08-01 [facility] Sebastian, [facility] 1.2.840.114 [id number] Univers 10:11:06 23:59:00 Encounter Joseph ARANDA 350.1.13.10 [place] [id number] [facility] [address] [place] 2022-08-01 2022-08-01 Office [facility] 1.2.840.114 [id number] [facility] 15:50:00 16:00:00 Visit [place] ARANDA 350.1.13.10 [place] PROF[place] [id number] Ri dical NAL 059 [facility] 2022-08-01 2022-08-01 Inspector Mechanical Farnaz, Adc Lab Main [facility] 1.2.8 40.114 [id number] Univers 11:00:00 11:15:00 Visit [place] aDn 350.1.13.10 [place] PROFESS[place] [id number] Ri dical NAL 353 [facility] 2022-08-01 2022-08-01 Telephone [facility] 1.2.336.120 [id number] Univers 00:00:00 00:00:00 [place] ARANDA 350.1.13.10 it[place] PROFESS[place] [id number] Ri dical NAL 059 [facility] 2022-07-31 2022-07-31 Telephone [facility] 1.2.648.593 [id number] Univers 00:00:00 00:00:00 [place] GRAYSONTON 350.1.13.10 it[place] of [place] PROFESS[place] [id number] Ri dical NAL 059 [facility] 2022-07-10 2022-07-10 Office Sy, 2.840.1 [id number] Univers 13:00:00 14:24:58 Visit [place] 70345.1.1 ity of 3.104.2.7 [place] .3.638210 Medica l .[address] [place] 2022-07-10 2022-07-10 Outpatient R SY, [facility] [id number] Univers 13:00:00 13:00:00 [place] perez o f [facility] 2022-07-10 2022-07-10 Inspector Mechanical [place] Dan 1.2.840.1 [id number] Univers 10:00:00 10:15:00 Visit Farnaz, Adc Lab Main 18571.1.1 ity of 3.104.2.7 [place] .3.227571 Medica l .[place] 2022-07-10 2022-07-10 Orders Doctor 1.2.840.3 [id number] Univers 00:00:00 00:00:00 Only Unassigned, 02149.1.1 ity of [place] 3.104.2.7 [place] .3.090665 Medica l .[address] [place] 2022-07-10 2022-07-10 Telephone Sy, 1.2.840.2 [id number] Univers 00:00:00 00:00:00 [place] 26627.1.1 ity of 3.104.2.7 [place] .3.595106 Medica l .8 [place] 2022-06-25 2022-06-25 Outpatient R SY, [facility] [id number] Univers 15:40:00 16:09:43 [place] perez o f [facility] 2022-06-25 2022-06-25 Office Sy, 1.2.840.1 [id number] Univers 15:40:00 16:09:43 Visit [place] 15452.1.1 ity of 3.104.2.7 [place] .3.463190 Medica l .[place] 2022-06-25 2022-06-25 Inspector Mechanical [place] Dan 1.2.840.1 [id number] Univers 11:45:00 12:00:00 Visit Farnaz, Adc Lab Main 93098.1.1 ity of 3.104.2.7 [place] .3.786120 Medica l .8 Branch 2022-06-25 2022-06-25 Office Sy, 1.2.840.6 [id number] Univers 11:20:00 11:20:00 Visit [place] 74851.1.1 ity of 3.104.2.7 [place] .3.024639 Medica l .8 Branch 2022-06-25 2022-06-25 Telephone Sy, 1.2.840.0 [id number] Univers 00:00:00 00:00:00 Qiangzaheer 95139.1.1 ity of 3.104.2.7 [place] .3.491183 Medica l .8 Branch 2022-06-25 2022-06-25 Travel 1.2.840.1 1.2.300.043 [id number] Univers 00:00:00 00:00:00 52983.1.1 350.1.13.10 ity of 3.104.2.7 4[place]7.3.698 [place] .3.170164 084.8 Medica l .8 Branch 2022-06-13 2022-06-13 Transition Isaak, 1.2.840.5 [id number] Univers 00:00:00 00:00:00 of Care Jeremy Ricardo 31855.1.1 it y of 3.104.2.7 [place] .3.370128 Medica l .8 Branch 2022-06-06 2022-06-12 Inpatient R MARIIA CARDONA [facility] [id number] Univers 17:19:00 12:24:00 MARIIA CARDONA ity of [facility] 2022-06-06 2022-06-12 Hospital Taylor Connell, 1.2.840.0 [id number] Univers 17:19:00 12:24:00 Encounter Mariia 15812.1.1 it y of 3.104.2.7 [place] .3.759301 Medica l .8 Branch 2022-06-06 2022-06-06 Inspector Mechanical [place] Dan 1.2.840.1 [id number] [facility] 10:15:00 10:30:00 Visit Pob, [facility] Lab Main 93003.1.1 ity of [place] 3.104.2.7 [place] .3.556288 Medica l .8 Branch 2022-06-06 2022-06-06 Telephone Sy, 1.2.840.0 [id number] Univers 00:00:00 00:00:00 Qiangjun 19478.1.1 ity of 3.104.2.7 [place] .3.482386 Medica l .8 Branch 2022-06-06 2022-06-06 Travel 1.2.840.1 1.2.250.902 [id number] Univers 00:00:00 00:00:00 61102.1.1 350.1.13.10 ity of 3.104.2.7 4.2.7.3.698 [place] .3.342431 084.8 Medica l .8 Branch 2022-06-05 2022-06-05 Telephone Sewani, 1.2.840.4 [id number] Univers 00:00:00 00:00:00 Wayne 28595.1.1 ity of 3.104.2.7 [place] .3.905644 Medica l .8 Branch 2022-05-29 2022-05-29 Telephone Sewani, 1.2.840.4 [id number] Univers 00:00:00 00:00:00 [place] 33482.1.1 ity of 3.104.2.7 [place] .3.612774 Medica l .8 Branch 2022-05-18 2022-05-27 [facility] Sean Graham [facility] [id number] [facility] 08:42:00 16:40:00 Encounter Vinayak Cook Muhammad [facility] [place] Angela, Purnima Diane, Meaghan Leyva 2022-05-18 2022-05-27 [facility] [id number] [facility] 08:42:00 16:40:00 MEAGHAN 2022-05-18 2022-05-27 Hospital ER Santos Adalbertocora Astudillous [facility] [id number] [facility] 08:42:00 16:40:00 Encounter Vinayak Cook [facility], [facility] Purnima Diane, Meaghan Leyva 2022-05-19 2022-05-19 Travel [facility] [id number] [facility] 00:[facility] 00:00:00 [facility] 2022-05-19 2022-05-19 Travel [facility] [id number] [facility] 00:[facility] 00:00:00 [facility] 2022-05-18 2022-05-18 Orders [facility] [id number] 00:00:00 00:00:00 Only [facility] 2022-05-18 2022-05-18 [facility] [id number] 00:[facility]00 00:00:00 [facility] 2022-05-18 2022-05-18 Orders [facility] [id number] 00:00:00 00:00:00 [facility] 2022-05-18 2022-05-18 [facility] [id number] 00:00:00 00:00:00 [facility] 2022-05-10 2022-05-10 Outpatient R HIMA, [facility] [id number] Univers 11:40:00 12:05:03 WAYNE ity of [facility] 2022-05-10 2022-05-10 Office [facility], 1.2.840.2 [id number] Univers 11:40:00 12:05:03 Visit Wayne 32014.1.1 ity of 3.104.2.7 [place] [id number] 2022-05-10 2022-05-10 Travel 1.2.840.1 1.2.920.930 [id number] Univers 00:00:00 00:00:00 43274.1.1 350.1.13.10 ity of 3.104.2.7 4[place].7.3.698 [place] .3.199848 084.8 Medica l .[place] 2022-05-09 2022-05-09 Inspector Mechanical [place] Dan 1.2.840.1 [id number] Univers 10:30:00 10:45:00 Visit Po, Adc Lab Main 43198.1.1 ity of 3.104.2.7 [place] .3.072161 Medica l .8 [place] 2022-05-09 2022-05-09 [facility] [id number] Univers 10:30:00 10:30:00 [place] perez o f [facility] 2022-05-09 2022-05-09 Orders Doctor 1.2.840.3 [id number] Univers 00:00:00 00:00:00 Only Unassigned, 95752.1.1 ity of [place] 3.104.2.7 [place] .3.026418 Medica l .[address] [place] 2022-05-09 2022-05-09 Telephone Sy 1.2.840.9 [id number] Univers 00:00:00 00:00:00 [place] 08394.1.1 ity of 3.104.2.7 [place] .3.360133 Medica l .8 [place] 2022-04-12 2022-04-12 [facility]patient [id number] Univers 11:00:00 11:00:00 WAYNE ity of [facility] 2022-04-12 2022-04-12 Outpatient [facility] [id number] Univers 11:00:00 11:00:00 WAYNE ity [facility] 2022-04-11 2022-04-11 Inspector Mechanical [place] Dan 1.2.840.1 [id number] Univers 09:45:00 10:00:00 Visit Po, Adc Lab Main 20842.1.1 ity of 3.104.2.7 [place] .3.584914 Medica l .8 Branch 2022-04-11 2022-04-11 Outpatient R SY [facility] [id number] Univers 09:45:00 09:45:00 [place] perez o f [facility] 2022-04-11 2022-04-11 Orders Doctor 1.2.840.8 [id number] Univers 00:00:00 00:00:00 Only Unassigned, 85555.1.1 ity of [place] 3.104.2.7 [place] .3.626071 Medica l .8 [place] 2022-04-11 2022-04-11 Telephone Sy, 1.2.840.1 [id number] Univers 00:00:00 00:00:00 Qiangjun 33523.1.1 ity of 3.104.2.7 [place] .3.047716 Medica l .8 [place] 2022-03-30 2022-03-30 Refill Sy, 1.2.840.9 [id number] Univers 00:00:00 00:00:00 Qiangzaheer 20336.1.1 ity of 3.104.2.7 [place] .3.633837 Medica l .8 [place] 2022-03-15 2022-03-15 Telephone Sewani, 1.2.840.8 [id number] Univers 00:00:00 00:00:00 Wayne 07403.1.1 ity of 3.104.2.7 [place] .3.992580 Medica l .8 [place] 2022-03-14 2022-03-14 Inspector Mechanical [place] Dan 1.2.840.1 [id number] Univers 09:30:00 09:45:00 Visit Pob, Adc Lab Main 59137.1.1 ity of 3.104.2.7 [place] .3.271725 Medica l .8 [place] 2022-03-14 2022-03-14 Outpatient R SY [facility] [id number] Univers 09:30:00 09:30:00 [place] perez o f [facility] 2022-03-14 2022-03-14 Orders Doctor 1.2.840.7 [id number] Univers 00:00:00 00:00:00 Only Unassigned, 74024.1.1 ity of [place] 3.104.2.7 [place] .3.414482 Medica l .8 [place] 2022-03-14 2022-03-14 Telephone Sy, 1.2.840.8 [id number] Univers 00:00:00 00:00:00 Qiangjun 47723.1.1 ity of 3.104.2.7 [place] .3.600833 Medica l .8 [place] 2022-02-28 2022-02-28 Inspector Mechanical 1, Adc Lab [facility] 1.2.840.114 [id number] Univers 13:30:00 13:45:00 Visit [place] DanJAVIER 350.1.13.10 ity of [place] 4.2.7.2.686 [facility] [phone] [facility] [address] 2022-02-28 2022-02-28 [facility] [id number] Univers 13:00:00 13:20:24 [place] perez o [facility] 2022-02-28 2022-02-28 Office Sy, [facility] 1.2.840.114 [id number] Univers 13:00:00 13:20:24 Visit [place] ROSI 350.1.13.10 ity of [place] 4.2.7.2.686 [facility] [id number] Ri dical NAL 059 [facility] 2022-02-28 2022-02-28 Outpatient R SY, [facility] [id number] Univers 13:00:00 13:00:00 J[place] tylerjake o [facility] 2022-02-28 2022-02-28 Outpatient R SY, [facility] [id number] Univers 13:00:00 13:00:00 [place] perez o abigail [facility] 2022-02-28 2022-02-28 Outpatient R SY, [facility] [id number] Univers 13:00:00 13:00:00 [place] perez o f [facility] 2022-02-28 2022-02-28 Orders Doctor JOHANN 1.2.840.114 [id number] Univers 00:00:00 00:00:00 Only Unassigned, MIKE 350.1.13.10 ity of [place] [facility] 4.2.7.2.686 Babak as [phone] [address] 2022-02-28 2022-02-28 Telephone [facility] 1.2.961.934 [id number] Univers 00:00:00 00:00:00 [place] ARANDA 350.1.13.10 ity [facility] 4.2.7.2.[place] [phone] Ri dical NAL 059 [facility] 2022-02-14 2022-02-14 Inspector Mechanical Farnaz, Adc Lab Main [facility] 1.2.8 40.114 [id number] Univers 09:45:00 10:00:00 Visit [place] Dan 350.1.13.10 ity of [place] 4.2.7.2.[place] [phone] Ri dical NAL 353 [facility] 2022-02-14 2022-02-14 [facility] [id number] Univers 09:45:00 09:45:00 [place] jimenes f [facility] 2022-02-14 2022-02-14 Orders Doctor JOHANN 1.2.840.114 [id number] Univers 00:00:00 00:00:00 Only Unassigned, MIKE 350.1.13.10 ity of [place] [facility] 4.2.7.2.686 Babak as [phone] [address] 2022-02-14 2022-02-14 Telephone [facility] 1.2.030.881 [id number] Univers 00:00:00 00:00:00 [place] ARANDA 350.1.13.10 ity [facility] 4.2.7.2.[place] [phone] Ri dical NAL 059 [facility] 2022-02-13 2022-02-13 [facility] 1.2.840.114 [id number] Univers 00:00:00 00:00:00 Qiamerjun [place] 350.1.13.10 ity of [place] 4.2.7.2.[place] [phone] Ri dicwv NAL 059 [facility] 2022-01-27 2022-01-27 Telephone [facility] 1.2.442.633 [id number] Univers 00:00:00 00:00:00 Qiangjun [place] 350.1.13.10 ity of [place] 4.2.7.2.[place] [phone] Ri dicwv NAL 9 [facility] 2022-01-25 2022-01-25 Inspector Mechanical Farnaz, Adc Lab Main [facility] 1.2.8 40.114 [id number] Univers 08:45:00 09:00:00 Visit [place] DanTON 350.1.13.10 ity of [place] 4.2.7.2.[place] [phone] [facility] 353 [facility] 2022-01-25 2022-01-25 Outpatient R SY, [facility] [id number] Univers 08:45:00 08:45:00 ROGERJUN ity o f [facility] 2022-01-19 2022-01-19 Inspector Mechanical Farnaz, Adc Lab Main [facility] 1.2.8 40.114 [id number] Univers 12:30:00 12:45:00 Visit [place] DanTON 350.1.13.10 ity of [place] 4.2.7.2.[place] [phone] Ri dicwv NAL [address] [place] [address] 2022-01-19 2022-01-19 Outpatient R SY, [facility] [id number] Univers 12:30:00 12:30:00 QIANGJUN ity o f [facility] 2022-01-19 2022-01-19 Telephone [facility] 1.2.609.124 [id number] Univers 00:00:00 00:00:00 Qiangjun [place] 350.1.13.10 ity of [place] 4.2.7.2.[place] [phone] Ri dical NAL 9 [facility] 2022-01-17 2022-01-17 Inspector Mechanical Farnaz, Adc Lab Main [facility] 1.2.8 40.114 [id number] Univers 08:45:00 09:00:00 Visit Sy [place] ARANDA 350.1.13.10 ity of [place] 4.2.7.2.[place] [phone] Ri dic[address] 2022-01-17 2022-01-17 Outpatient R SY [facility] [id number] Univers 08:45:00 08:45:00 [place] scotty o f [facility] 2022-01-17 2022-01-17 [facility] 1.2.208.819 [id number] Univers 00:00:00 00:00:00 [place] ARANDA 350.1.13.10 it[place] of [place] 4.2.7.2.[place] [phone] [address] 2021-12-28 2021-12-28 Inspector Mechanical Farnaz, Adc Lab Main [facility] 1.2.8 40.114 [id number] Univers 10:30:00 10:45:00 Visit Yolande Santacruz 350.1.13.10 ity of [place] 4.2.7.2.[place] [phone] [address] 2021-12-28 2021-12-28 Outpatient R IVAN [facility] [id number] Univers 10:30:00 10:30:00 YOLANDE perez [facility] 2021-12-28 2021-12-28 Telephone YANY Dan 1.2.949.467 [id number] Univers 00:00:00 00:00:00 [place] PEDIATRIC 350.1.13.10 [place] of [place]2.7.2.[place] [phone] [address] 2021-12-15 2021-12-15 Telephone Sy [facility] 1.2.484.831 [id number] Univers 00:00:00 00:00:00 [place] ARANDA 350.1.13.10 ity of [place] 4.2.7.2.[place] [phone] Ri dical NAL 059 [facility] 2021-12-15 2021-12-15 [facility] 1.2.740.786 [id number] Univers 00:00:00 00:00:00 Qiajuan [place] 350.1.13.10 ity of [place] 4.2.7.2.[place] [phone] Ri dicwv NAL 059 [facility] 2021-12-15 2021-12-15 Refill [facility] 1.2.840.114 [id number] Univers 00:00:00 00:00:00 [place] ARANDA 350.1.13.10 ity [facility] 4.2.7.2.[place] [phone] [facility] 059 [facility] 2021-12-14 2021-12-14 Inspector Mechanical Farnaz, Adc Lab Main [facility] 1.2.8 40.114 [id number] Univers 12:30:00 12:45:00 Visit Sy [place] ARANDA 350.1.13.10 ity of [place] 4.2.7.2.[place] [phone] [facility] 353 [facility] 2021-12-14 2021-12-14 [facility] [id number] [facility] 12:30:00 12:30:00 [place] perez o f [facility] 2021-12-14 2021-12-14 Orders Doctor JOHANN 1.2.840.114 [id number] Univers 00:00:00 00:00:00 Only Unassigned, MIKE 350.1.13.10 ity of [place] [facility] 4.2.7.2.686 Babak as [phone] [address] 2021-12-04 2021-12-04 Inspector Mechanical Farnaz, Adc Lab Main [facility] 1.2.8 40.114 [id number] Univers 14:15:00 14:30:00 Visit Sy [place] ARANDA 350.1.13.10 ity of [place] 4.2.7.2.[place] [phone] Ri dical NAL 353 [facility] 2021-12-04 2021-12-04 Outpatient R SY, [facility] [id number] Univers 14:15:00 14:15:00 QIAJUAN ity o f [facility] 2021-12-04 2021-12-04 Outpatient R SY, [facility] [id number] Univers 14:15:00 14:15:00 QIANGJUN ity o f [facility] 2021-12-04 2021-12-04 Transition ALESIA Gamez 1.2.840.114 [id number] Univers 00:00:00 00:00:00 of Thao Yeeet DANET[place] 350.1.13.10 it y of [place] 4[place]2.7.2.[place] [phone] [facility] [address] 2021-12-04 2021-12-04 Telephone Sy [facility] 1.2.396.609 [id number] Univers 00:00:00 00:00:00 [place] ARANDA 350.1.13.10 ity of [place] 4.2.7.2.[place] [phone] Ri dicwv NAL 059 [facility] 2021-11-23 2021-12-01 Inpatient R REBECA HOLCOMB [facility] MCA 10 [id number] Univers 15:31:00 14:11:00 REBECA HOLCOMB ity of [facility] 2021-11-23 2021-12-01 [facility] SHAYAN Holcomb 1.2.212.600 [id number] Univers 15:31:00 14:11:00 Encounter Rebeca MCKEON 350.1.13.10 ity of [facility] 4.2.7.2.686 Babak as [phone] [facility] [address] 2021-12-01 2021-12-01 Telephone [facility] 1.2.409.438 [id number] Univers 00:00:00 00:00:00 Wayne ARANDA 350.1.13.10 i ty of [place] 4[place]2.7.2.[place] [phone] [place] [address] [facility] 2021-11-23 2021-11-23 Orders Doctor JOHANN 1.2.840.114 [id number] Univers 00:00:00 00:00:00 Only Unassigned, MIKE 350.1.13.10 ity of [place] [facility] 4.2.7.2.686 Babak as [phone] [address] 2021-11-22 2021-11-22 Inspector Mechanical Farnaz, Adc Lab Main [facility] 1.2.8 40.114 [id number] Univers 07:45:00 08:00:00 Visit [place] DanJAVIER 350.1.13.10 ity of [place] 4.2.7.2.[place] [phone] [address] 2021-11-22 2021-11-22 Outpatient R SY, [facility] [id number] Univers 07:45:00 07:45:00 CATRINAJUAN perez o [facility] 2021-11-22 2021-11-22 Outpatient R SY, [facility] [id number] Univers 07:45:00 07:45:00 ROGERZAHEER scotty o [facility] 2021-11-20 2021-11-20 Telephone [facility] 1.2.752.675 [id number] Univers 00:00:00 00:00:00 Rogerzaheer ROSI 350.1.13.10 ity of [facility] 4.2.7.2.[place] [phone] [address] 2021-11-10 2021-11-10 Inspector Mechanical Fanraz, Adc Lab Main [facility] 1.2.8 40.114 [id number] Univers 16:45:00 17:00:00 Visit SyJamaica 350.1.13.10 ity of [facility] 4.2.7.2.[place] [phone] [address] 2021-11-10 2021-11-10 [facility] [id number] Univers 16:45:00 16:45:00 ROGERZAHEER ity o [facility] 2021-11-10 2021-11-10 Outpatient R SY, [facility] [id number] Univers 16:45:00 16:45:00 [place] ity o f [facility] 2021-11-10 2021-11-10 [facility] 1.2.391.474 [id number] Univers 00:00:00 00:00:00 Qiajuan [place] 350.1.13.10 ity of [place] 4.2.7.2.[place] [phone] Ri dical NAL [facility] Branch [facility] 2021-11-07 2021-11-07 Telephone Stefanie [facility] 1.2.840.114 [id number] Univers 00:00:00 00:00:00 h, [facility] 350.1.13.10 i ty of [place]2.7.2.[place] [id number] [address] OFFICE BUILDING 2021-11-06 2021-11-06 Inspector Mechanical Farnaz, Adc Lab Main [facility] 1.2.8 40.114 [id number] Univers 13:15:00 13:30:00 Visit Catrina Danmerzaheer KENANJAVIER 350.1.13.10 ity of [place] 4.2.7.2.[place] [phone] Ri dical [facility] 353 [facility] 2021-11-06 2021-11-06 Outpatient R [facility] [id number] Univers 13:15:00 13:15:00 ROGERZAHEER ity o f [facility] 2021-11-06 2021-11-06 Outpatient R [facility] [id number] Univers 13:15:00 13:15:00 ROGERZAHEER ity o f [facility] 2021-11-06 2021-11-06 Telephone [facility] 1.2.264.383 [id number] Univers 00:00:00 00:00:00 Catrinamerzaheer [place] 350.1.13.10 ity of [place] 4.2.7.2.[place] [phone] Ri dical NAL 9 [facility] 2021-11-06 2021-11-06 Telephone [facility] 1.2.548.957 [id number] Univers 00:00:00 00:00:00 Wayne HEALTH 350.1.13.10 it y of [place]2.7.2.[place] [phone] [facility] [address] OFFICE BUILDING 2021-11-03 2021-11-03 [facility] [id number] Univers 15:00:00 15:40:28 WAYNE ity of [facility] 2021-11-03 2021-11-03 [facility] [id number] Univers 15:00:00 15:40:28 WAYNE ity of [facility] 2021-11-03 2021-11-03 Office [facility] 1.2.840.114 [id number] Univers 15:00:00 15:20:00 Visit Wayne ROSI 350.1.13.10 i ty of [facility] 4.2.7.2.686 [place] [phone] Ri dical NAL 059 [facility] 2021-11-03 2021-11-03 [facility] [id number] Univers 15:00:00 15:00:00 WAYNE ity [facility] 2021-11-03 2021-11-03 Inspector Mechanical Farnaz, Andre Lab Main [facility] 1.2.8 40.114 [id number] Univers 14:30:00 14:45:00 Visit [place] Dan 350.1.13.10 ity of [facility] 4.2.7.2.686 [place] [id number] Ri dical NAL 353 [facility] 2021-11-03 2021-11-03 Outpatient [facility] [id number] Univers 11:00:00 11:00:00 WAYNE ity of [facility] 2021-11-03 2021-11-03 Outpatient [facility] [id number] Univers 11:00:00 11:00:00 WAYNE ity of [facility] 2021-11-03 2021-11-03 [facility] [id number] Univers 11:00:00 11:00:00 WAYNE ity of [facility] 2021-11-03 2021-11-03 Telephone [facility] 1.2.501.148 [id number] Univers 00:00:00 00:00:00 [place] ARANDA 350.1.13.10 ity of [facility] 4.2.7.2.686 [place] [phone] Ri dical NAL 059 [facility] 2021-10-25 2021-10-25 [facility] 1.2.840.114 [id number] Univers 00:00:00 00:00:00 [place] ARANDA 350.1.13.10 ity of [place] 4.2.7.2.[place] [phone] Ri dical NAL 059 [facility] 2021-10-23 2021-10-23 Inspector Mechanical Farnaz, Adc Lab Main [facility] 1.2.8 40.114 [id number] Univers 10:15:00 10:30:00 Visit [place] Dan 350.1.13.10 ity of [place] 4.2.7.2.[place] [phone] Ri dical NAL 353 [facility] 2021-10-23 2021-10-23 Outpatient R SY, [facility] [id number] Univers 10:15:00 10:15:00 [place] perez o [facility] 2021-10-23 2021-10-23 Outpatient R SY, [facility] [id number] Univers 10:15:00 10:15:00 [place] perez o [facility] 2021-10-23 2021-10-23 Orders Doctor JOHANN 1.2.840.114 [id number] Univers 00:00:00 00:00:00 Only Unassigned, MIKE 350.1.13.10 ity of [place] [facility] 4.2.7.2.686 Babak as [phone] [address] 2021-10-23 2021-10-23 [facility] 1.2.840.114 [id number] Univers 00:00:00 00:00:00 [place] ARANDA 350.1.13.10 ity of [facility] 4.2.7.2.[place] [phone] Ri dical NAL 9 [facility] 2021-10-23 2021-10-23 Telephone [facility] 1.2.712.617 [id number] Univers 00:00:00 00:00:00 [place] ARANDA 350.1.13.10 ity of [facility] 4.2.7.2.[place] [phone] Ri dicwv NAL [address] [place] [address] 2021-10-18 2021-10-18 Inspector Mechanical Farnaz, Adc Lab Main [facility] 1.2.8 40.114 [id number] Univers 09:30:00 09:45:00 Visit [place] Dna 350.1.13.10 ity of [place] 4.2.7.2.686 [place] [phone] Ri dicwv NAL [address] [place] [address] 2021-10-18 2021-10-18 Outpatient R SY, [facility] [id number] Univers 09:30:00 09:30:00 ROGERZAHEER tylery o [facility] 2021-10-18 2021-10-18 Outpatient R SY, [facility] [id number] Univers 09:30:00 09:30:00 [place] scotty o [facility] 2021-10-18 2021-10-18 Telephone [facility] 1.2.604.312 [id number] Univers 00:00:00 00:00:00 [place] ARANDA 350.1.13.10 ity of [place] 4.2.7.2.[place] [phone] Ri dicwv NAL [address] [place] [address] 2021-10-13 2021-10-13 Inspector Mechanical Farnaz, Adc Lab Main [facility] 1.2.8 40.114 [id number] Univers 10:45:00 11:00:00 Visit [place] Dan 350.1.13.10 ity of [facility] 4.2.7.2.[place] [phone] Ri dical NAL [address] [place] [address] 2021-10-13 2021-10-13 Outpatient R SY, [facility] [id number] Univers 10:45:00 10:45:00 [place] scotty o f [facility] 2021-10-13 2021-10-13 Outpatient R SY, [facility] [id number] Univers 10:45:00 10:45:00 QIAJUAN ity o f [facility] 2021-10-13 2021-10-13 Telephone [facility] 1.2.076.733 [id number] Univers 00:00:00 00:00:00 Qiamerjun [place] 350.1.13.10 ity of [place] 4.2.7.2.[place] [phone] Ri dical NAL 059 [facility] 2021-09-27 2021-09-27 Inspector Mechanical Farnaz, Adc Lab Main [facility] 1.2.8 40.114 [id number] Univers 10:15:00 10:30:00 Visit Sy [place] 350.1.13.10 ity of [place] 4.2.7.2.[place] [phone] Ri dical NAL 353 [facility] 2021-09-27 2021-09-27 Outpatient R SY, [facility] [id number] Univers 10:15:00 10:15:00 CATRINAJUAN scotty o [facility] 2021-09-27 2021-09-27 Outpatient R SY, [facility] [id number] Univers 10:15:00 10:15:00 CATRINAJUAN scotty o f [facility] 2021-09-27 2021-09-27 Telephone [facility] 1.2.272.931 [id number] Univers 00:00:00 00:00:00 [place] 350.1.13.10 ity of [place] 4.2.7.2.[place] [phone] Ri dical NAL 059 [facility] 2021-09-27 2021-09-27 Telephone [facility] 1.2.801.163 [id number] Univers 00:00:00 00:00:00 Qiajuan [place] 350.1.13.10 ity of [place] 4.2.7.2.[place] [phone] Ri dical NAL 059 [facility] 2021-09-21 2021-09-21 [facility] 1.2.840.114 [id number] Univers 00:00:00 00:00:00 [place] ARANDA 350.1.13.10 ity [facility] 4.2.7.2.[place] [phone] Ri dical NAL 059 [facility] 2021-09-01 2021-09-01 Telephone [facility] 1.2.899.127 [id number] Univers 00:00:00 00:00:00 [place] ARANDA [id number] [facility]y [facility] [id number] [phone] Ri dical NAL 9 [facility] 2021-08-30 2021-08-30 Inspector Mechanical Farnaz, Adc Lab Main [facility] 1.2.8 [id number] [id number] Univers 09:00:00 09:15:00 Visit [place] Dan [id number] ity [facility] [id number] [phone] [facility] 353 [facility] 2021-08-30 2021-08-30 [id number] Univers 09:00:00 09:00:00 [place] perez o f [facility] 2021-08-30 2021-08-30 Outpatient R SY, [facility] [id number] Univers 09:00:00 09:00:00 [place] scotty o f [facility] 2021-08-30 2021-08-30 Orders Doctor JOHANN [id number] Univers 00:00:00 00:00:00 Only Unassigned, MIKE 350.1.13.10 [facility] 4.2.7.2.686 [place] as [phone] [address] 2021-08-30 2021-08-30 Telephone [facility] [id number] Univers 00:00:00 00:00:00 [place] ARANDA [id number] [id number] [phone] Ri dical NAL 9 [facility] 2021-08-28 2021-08-28 [facility] [id number] Univers 10:40:00 10:49:42 Visit [place] ARANDA [id number] [id number] [phone] Ri richawv NAL [address] [place] [address] 2021-08-28 2021-08-28 Outpatient R SY, [facility] [id number] Univers 10:40:00 10:49:42 [place] jimenes [facility] 2021-08-28 2021-08-28 Outpatient R SY, [facility] [id number] Univers 10:40:00 10:40:00 [place] perez o [facility] 2021-08-28 2021-08-28 Outpatient R SY, [facility] [id number] Univers 10:40:00 10:40:00 [place] jimenes [facility] 2021-08-16 2021-08-16 Inspector Mechanical Farnaz, Adc Lab Main [facility] 1.2.8 40.114 [id number] Univers 12:15:00 12:30:00 Visit [place] Dan [id number] [id number] [phone] [facility] 353 [facility] 2021-08-16 2021-08-16 Outpatient R SY, [facility] [id number] Univers 12:15:00 12:15:00 [place] jimenes [facility] 2021-08-16 2021-08-16 Outpatient R SY, [facility] [id number] Univers 12:15:00 12:15:00 [place] [facility]enes [facility] [facility] 2021-08-16 2021-08-16 Orders Doctor WILLS 1.2.840.114 [id number] Univers 00:00:00 00:00:00 Only Unassigned, MIKE 350.1.13.10 [facility] 4.2.7.2.686 Babak as [phone] [address] 2021-08-16 2021-08-16 Telephone [facility] 1.2.268.838 [id number] Univers 00:00:00 00:00:00 [place] ARANDA 350.1.13.10 ity [facility] 4.2.7.2.[place] [phone] Ri dical NAL 059 [facility] 2021-08-02 2021-08-02 Inspector Mechanical Farnaz, Adc Lab Main [facility] 1.2.8 40.114 [id number] Univers 09:00:00 09:15:00 Visit [place] Dan 350.1.13.10 ity of [place] 4.2.7.2.[place] [phone] [facility] 353 [facility] 2021-08-02 2021-08-02 Outpatient R [facility] [id number] Univers 09:00:00 09:00:00 [place] perez o [facility] 2021-08-02 2021-08-02 Outpatient R [facility] [id number] Univers 09:00:00 09:00:00 [place] perez o [facility] 2021-08-02 2021-08-02 Orders Doctor JOHANN 1.2.840.114 [id number] Univers 00:00:00 00:00:00 Only Unassigned, MIKE 350.1.13.10 ity of [facility] 4.2.7.2.686 Babak as [phone] [address] 2021-08-02 2021-08-02 Telephone [facility] 1.2.583.148 [id number] Univers 00:00:00 00:00:00 [place] ARANDA 350.1.13.10 ity of [facility] 4.2.7.2.[place] [phone] Ri dical NAL [address] [place] [address] 2021-07-10 2021-07-10 [facility] 1.2.840.114 [id number] Univers 00:00:00 00:00:00 [place] ARANDA 350.1.13.10 ity of [place] 4.2.7.2.[place] [phone] Ri dical NAL 059 [facility] 2021-07-05 2021-07-05 Inspector Mechanical Farnaz, Adc Lab Main [facility] 1.2.8 40.114 [id number] Univers 09:30:00 09:45:00 Visit [place] Dan 350.1.13.10 ity of [place] 4.2.7.2.[place] [phone] Ri dical NAL 353 [facility] 2021-07-05 2021-07-05 [facility] [id number] Univers 09:30:00 09:30:00 [place] scotty o [facility] 2021-07-05 2021-07-05 [facility] [id number] Univers 09:30:00 09:30:00 [place] perez o [facility] 2021-07-05 2021-07-05 Telephone [facility] 1.2.977.412 [id number] Univers 00:00:00 00:00:00 [place] ARANDA 350.1.13.10 ity of [place] 4.2.7.2.[place] [phone] Ri dical NAL 059 [facility] 2021-06-15 2021-06-15 Inspector Mechanical Farnaz, Adc Lab Main [facility] 1.2.8 40.114 [id number] Univers 09:45:00 10:00:00 Visit [place] Dan 350.1.13.10 ity of [place] 4.2.7.2.[place] [phone] Ri dical NAL 353 [facility] 2021-06-15 2021-06-15 Outpatient R [facility] [id number] Univers 09:45:00 09:23:22 J[place] ity o [facility] 2021-06-15 2021-06-15 Out[facility] [id number] Univers 09:45:00 09:23:22 CATRINAJUAN ity o [facility] 2021-06-152021-06-15 Orders Doctor JOHANN 1.2.840.114 [id number] Univers 00:00:00 00:00:00 Only Unassigned, MIKE 350.1.13.10 ity of [place] [facility] 4.2.7.2.686 Babak as [phone] [facility] [address] 2021-06-15 2021-06-15 Telephone SyYANY 1.2.077.806 [id number] Univers 00:00:00 00:00:00 [place] PEDIATRIC 350.1.13.10 [place] of [place]2.7.2.[place] [phone] [facility] PRIMARY 059 [facility] 2021-05-31 2021-05-31 Inspector Mechanical Farnaz, Andre Lab Main [facility] 1.2.8 40.114 [id number] Univers 10:45:00 11:00:00 Visit [place] Dan 350.1.13.10 ity of [facility] 4.2.7.2.686 [place] [phone] [facility] 353 [facility] 2021-05-31 2021-05-31 Office [facility] 1.2.840.114 [id number] Univers 10:00:00 10:33:12 Visit [place] ARANDA 350.1.13.10 ity of [place] 4.2.7.2.[place] [phone] Ri dicwv NAL 059 [facility] 2021-05-31 2021-05-31 Outpatient [facility] [id number] Univers 10:00:00 10:33:12 [place] perez o f [facility] 2021-05-31 2021-05-31 Outpatient R [facility] [id number] Univers 10:00:00 10:00:00 [place] perez o f [facility] 2021-05-31 2021-05-31 Telephone [facility] 1.2.171.548 [id number] Univers 00:00:00 00:00:00 [place] ARANDA 350.1.13.10 ity [address] [facility] 4.2.7.2.686 [place] [phone] Ri dical NAL 059 [facility] 2021-05-26 2021-05-26 Emergency X JAKE, K [facility] ERT [id number] Univers 17:30:00 20:34:00 ity of [facility] 2021-05-26 2021-05-26 Emergency Jake, K [facility] 1.2.840.114 [id number] Univers 17:30:00 20:34:00 Myah ARANDA 350.1.13.10 i ty of [place] 4.2.7.2.[place] [phone] [facility] tyrone [address] 2021-05-26 2021-05-26 Outpatient R SY, [facility] [id number] Univers 10:20:00 10:20:00 QIAJUAN ity o [facility] 2021-05-26 2021-05-26 Outpatient R SY, [facility] [id number] Univers 10:20:00 10:20:00 ROGERZAHEER tylery o [facility] 2021-05-10 2021-05-10 Inspector Mechanical Farnaz, Adc Lab Main [facility] 1.2.8 40.114 [id number] Univers 08:15:00 08:30:00 Visit [place] Dan 350.1.13.10 ity of [place] 4.2.7.2.[place] [phone] Ri dical NAL 353 [facility] 2021-05-10 2021-05-10 Outpatient R SY, [facility] [id number] Univers 08:15:00 08:15:00 ROGERJUN ity o [facility] 2021-05-10 2021-05-10 Outpatient R SY, [facility] [id number] Univers 08:15:00 08:15:00 ROGERZAHEER ity o [facility] 2021-05-10 2021-05-10 Telephone [facility] 1.2.212.979 [id number] Univers 00:00:00 00:00:00 [place] ARANDA 350.1.13.10 ity [facility] 4.2.7.2.686 [place] [phone] Ri dical NAL [address] [place] [address] 2021-05-10 2021-05-10 [facility]phone [facility] 1.2.683.799 [id number] Univers 00:00:00 00:00:00 Rogerzaheer KENANTON 350.1.13.10 ity of [place] 4.2.7.2.[place] [phone] Ri dicwv NAL [address] [place] [address] 2021-05-09 2021-05-09 Refill [facility] 1.2.840.114 [id number] Univers 00:00:00 00:00:00 Qiamerzaheer [place] 350.1.13.10 ity of [place] 4.2.7.2.[place] [phone] [address] 2021-05-04 2021-05-04 Refill [facility] 1.2.840.114 [id number] Univers 00:00:00 00:00:00 [place] ARANDA 350.1.13.10 ity of [place] 4.2.7.2.[place] [phone] [address] 2021-04-28 2021-04-28 [facility] [id number] Univers 08:40:00 09:19:00 WAYNE ity [facility] 2021-04-28 2021-04-28 Office [facility] 1.2.840.114 [id number] Univers 08:40:00 09:19:00 Visit Wayne ROSI 350.1.13.10 i ty of [place] 4.2.7.2.[place] [phone] [address] 2021-04-28 2021-04-28 [facility] [id number] Univers 08:40:00 09:19:00 WAYNE ity [facility] 2021-04-28 2021-04-28 Inspector Mechanical Farnaz, Andre Lab Main [facility] 1.2.8 40.114 [id number] Univers 08:00:00 08:15:00 Visit [place] Dan 350.1.13.10 ity of [place] 4.2.7.2.[place] [phone] Ri dical [address] 2021-04-27 2021-04-27 Inspector Mechanical Farnaz, Adc Lab Main [facility] 1.2.8 40.114 [id number] Univers 10:45:00 11:00:00 Visit [place] Dan 350.1.13.10 ity of [facility] 4.2.7.2.686 [place] [phone] [address] 2021-04-27 2021-04-27 [facility] [id number] Univers 10:45:00 10:45:00 QIAMERJUN ity o f [facility] 2021-04-27 2021-04-27 Out[facility] [id number] Univers 10:45:00 10:45:00 QIANGJUN ity o f [facility] 2021-04-27 2021-04-27 Telephone YANY Dan 1.2.776.747 [id number] Univers 00:00:00 00:00:00 Qiamerjun PEDIATRIC 350.1.13.10 [place] of [place].2.[place] [phone] [address] 2021-04-25 2021-04-25 [facility] [id number] Univers 10:20:00 10:20:00 WAYNE ity [facility] 2021-04-25 2021-04-25 Outpatient R HIMA [facility] [id number] Univers 10:20:00 10:20:00 WAYNE ity [facility] 2021-04-12 2021-04-12 Inspector Mechanical Farnaz, Adc Lab Main [facility] 1.2.8 40.114 [id number] Univers 09:30:00 09:45:00 Visit [place] Dan 350.1.13.10 ity of [place] 4.2.7.2.686 [place] [phone] Ri dic[address] 2021-04-12 2021-04-12 Outpatient [facility] [id number] Univers 09:30:00 09:30:00 J[place] perez o abigail [facility] 2021-04-12 2021-04-12 Outpatient R [facility] [id number] Univers 09:30:00 09:30:00 [place] perez o [facility] 2021-04-12 2021-04-12 Orders Doctor JOHANN 1.2.840.114 [id number] Univers 00:00:00 00:00:00 Only Unassigned, MIKE 350.1.13.10 [facility] 4.2.7.2.686 Babak as [phone] [address] 2021-04-12 2021-04-12 Telephone [facility] 1.2.160.925 [id number] Univers 00:00:00 00:00:00 [place] ARANDA 350.1.13.10 ity of [facility] 4.2.7.2.686 [place] [phone] Ri dical NAL 059 [facility] 2021-03-29 2021-03-29 Outpatient R [facility] [id number] Univers 11:20:00 11:20:58 [place] jimenes [facility] 2021-03-29 2021-03-29 Office [facility] 1.2.840.114 [id number] Univers 11:20:00 11:20:58 Visit [place] ARANDA 350.1.13.10 ity of [facility] 4.2.7.2.686 [place] [phone] Ri dical NAL 059 [facility] 2021-03-28 2021-03-28 Inspector Mechanical Farnaz, Adc Lab Main [facility] 1.2.8 40.114 [id number] Univers 12:13:20 12:28:20 Visit SyJamaicaJAVIER 350.1.13.10 ity of [facility] 4.2.7.2.686 [place] [phone] Ri dical NAL 353 [facility] 2021-03-28 2021-03-28 Outpatient R [facility] [id number] Univers 12:15:00 12:15:00 J[place] hayes [facility] 2021-03-28 2021-03-28 Outpatient R [facility] [id number] Univers 12:15:00 12:15:00 [place] perez o [facility] 2021-03-28 2021-03-28 Orders Doctor JOHANN 1.2.840.114 [id number] Univers 00:00:00 00:00:00 Only Unassigned, MIKE 350.1.13.10 ity of [place] [facility] 4.2.7.2.686 Babak as [phone] [address] 2021-03-28 2021-03-28 Telephone [facility] 1.2.731.973 [id number] Univers 00:00:00 00:00:00 [place] ARANDA 350.1.13.10 ity of [facility] 4.2.7.2.686 [place] [phone] Ri dical NAL 059 [facility] 2021-03-28 2021-03-28 [facility] 1.2.840.114 [id number] Univers 00:00:00 00:00:00 [place] ARANDA 350.1.13.10 ity of [facility] 4.2.7.2.686 [place] [phone] Ri dical NAL 059 [facility] 2021-03-20 2021-03-20 Outpatient R [facility] [id number] Univers 13:45:00 13:45:00 CATRINAJUAN perez o [facility] 2021-03-20 2021-03-20 Outpatient R [facility] [id number] Univers 13:45:00 13:45:00 ROGERZAHEER ana o [facility] 2021-03-20 2021-03-20 Inspector Mechanical Farnaz, Andre Lab Main [facility] 1.2.8 40.114 [id number] Univers 11:58:29 12:13:29 Visit Sy [place] ARANDA 350.1.13.10 ity of [facility] 4.2.7.2.686 [place] [phone] Ri dical NAL 353 [facility] 2021-03-20 2021-03-20 Telephone [facility] 1.2.627.613 [id number] Univers 00:00:00 00:00:00 [place] ARANDA 350.1.13.10 ity of [facility] 4.2.7.2.686 [place] [phone] Ri dical NAL 059 [facility] 2021-03-15 2021-03-15 Outpatient Joan DAISY [facility] [id number] Univers 09:15:00 09:15:00 JOSE itjake [facility] 2021-03-15 2021-03-15 Outpatient R DAISY [facility] [id number] Univers 09:15:00 09:15:00 JOSE ity [facility] 2021-03-15 2021-03-15 Inspector Mechanical Farnaz, Andre Lab Main [facility] 1.2.8 40.114 [id number] Univers 08:14:37 08:29:37 Visit DaisyJose 350.1.13. 10 ity of [place] 4.2.7.2.[place] [phone] [facility] 353 [facility] 2021-03-15 2021-03-15 Orders Doctor JOHANN 1.2.840.114 [id number] Univers 00:00:00 00:00:00 Only Unassigned, MIKE 350.1.13.10 ity of [place] [facility] 4.2.7.2.686 Babak as [phone] [facility] [address] 2021-03-15 2021-03-15 Telephone [facility] 1.2.193.384 [id number] Univers 00:00:00 00:00:00 [place] ARANDA 350.1.13.10 ity of [facility] 4.2.7.2.[place] [phone] Ri dical NAL 059 [facility] 2021-03-07 2021-03-07 Transition ALESIA Gamez 1.2.840.114 [id number] Univers 00:00:00 00:00:00 of Care Georgie SAMANIEGO 350.1.13.10 it y of [place]2.7.2.[place] [phone] [facility] [address] 2021-03-01 2021-03-06 Inpatient X FABIOLA [facility] BERENICE [id number] Univers 11:31:00 15:17:00 CALEB perez [facility] 2021-03-01 2021-03-06 [facility] Jamie Deng [facility] 1.2.840.1 14 [id number] Univers 11:31:00 15:17:00 Encounter Kaley Rodriguesjavier ARANDA 350.1.13.[address] [facility] 4.2.7.2.686 [place] [phone] [facility] [address] 2021-03-01 2021-03-01 Outpatient X FABIOLA [facility] BERENICE [id number] Univers 11:31:00 11:31:00 CALEB perez [facility] 2021-02-27 2021-02-27 Outpatient R SY, [facility] [id number] Univers 11:20:00 11:44:55 [place] tylerjake o [facility] 2021-02-27 2021-02-27 Outpatient R SY, [facility] [id number] Univers 11:20:00 11:44:55 [place] ana o [facility] 2021-02-27 2021-02-27 Outpatient R SY, [facility] [id number] Univers 11:20:00 11:44:55 [place] tylerjake o [facility] 2021-02-27 2021-02-27 Outpatient R SY, [facility] [id number] Univers 11:20:00 11:44:55 [place] tylerjake o [facility] 2021-02-27 2021-02-27 Office Sy, [facility] 1.2.840.114 [id number] Univers 10:54:32 11:44:55 Visit [place] ARANDA 350.1.13.[address] [facility] 4.2.7.2.686 [facility] [phone] [address] 2021-02-27 2021-02-27 Outpatient R SY, [facility] [id number] Univers 10:30:00 10:30:00 [place] perez o [facility] 2021-02-27 2021-02-27 Outpatient R SY, [facility] [id number] Univers 10:30:00 10:30:00 [place] perez o f [facility] 2021-02-27 2021-02-27 Inspector Mechanical Farnaz, Adc Lab Main [facility] 1.2.8 40.114 [id number] Univers 09:52:58 10:07:58 Visit [place] Dan 350.1.13.10 ity of [facility] 4.2.7.2.686 [place] [phone] Ri dical NAL 353 [facility] 2021-02-27 2021-02-27 Orders Doctor JOHANN 1.2.840.114 [id number] Univers 00:00:00 00:00:00 Only Unassigned, MIKE 350.1.13.10 ity of [place] [facility] 4.2.7.2.686 Babak as [phone] [address] 2021-02-27 2021-02-27 Telephone [facility] 1.2.331.777 [id number] Univers 00:00:00 00:00:00 [place] ARANDA 350.1.13.10 ity of [facility] 4.2.7.2.686 [place] [phone] Ri dical NAL 059 [facility] 2021-02-24 2021-02-24 Outpatient R [facility] [id number] Univers 10:45:00 10:45:00 [place] perez o abigail [facility] 2021-02-24 2021-02-24 Outpatient R SY, [facility] [id number] Univers 10:45:00 10:45:00 [place] scotty o abigail [facility] 2021-02-24 2021-02-24 Inspector Mechanical Farnaz, Adc Lab Main [facility] 1.2.8 40.114 [id number] Univers 09:17:46 09:32:46 Visit [place] Dan 350.1.13.10 ity of [facility] 4.2.7.2.686 [place] [phone] Ri dical NAL 353 [facility] 2021-02-24 2021-02-24 Telephone [facility] 1.2.115.123 [id number] Univers 00:00:00 00:00:00 [place] 350.1.13.10 ity of [place] 4.2.7.2.[place] [phone] Ri dical NAL 059 [facility] 2021-02-24 2021-02-24 Telephone [facility] 1.2.774.050 [id number] Univers 00:00:00 00:00:00 Qiajuan [place] 350.1.13.10 ity of [place] 4.2.7.2.[place] [phone] Ri dical NAL 059 [facility] 2021-02-24 2021-02-24 [facility] 1.2.538.066 [id number] Univers 00:00:00 00:00:00 Qiajuan [place] 350.1.13.10 ity [address] [facility] 4.2.7.2.686 [place] [phone] Ri dical NAL 059 [facility] 2021-02-15 2021-02-15 Inspector Mechanical Farnaz, Adc Lab Main [facility] 1.2.8 40.114 [id number] Univers 09:47:39 10:02:39 Visit SyJamaica 350.1.13.10 ity of [place] 4.2.7.2.[place] [phone] [facility] 353 [facility] 2021-02-15 2021-02-15 Outpatient R SY [facility] [id number] Univers 09:45:00 09:45:00 [place] scotty o f [facility] 2021-02-15 2021-02-15 Outpatient R SY [facility] [id number] Univers 09:45:00 09:45:00 [place] perez o [facility] 2021-02-15 2021-02-15 Orders Doctor JOHANN 1.2.840.114 [id number] Univers 00:00:00 00:00:00 Only Unassigned, MIKE 350.1.13.10 ity of [place] [facility] 4.2.7.2.686 Babak as [phone] [address] 2021-02-15 2021-02-15 [facility]phone [facility] 1.2.050.337 [id number] Univers 00:00:00 00:00:00 [place] ARANDA 350.1.13.10 ity of [place].2.7.2.[place] [phone] Ri dical NAL [address] [facility] 2021-02-10 2021-02-10 Transition ALESIA Gamez 1.2.840.114 [id number] Univers 00:00:00 00:00:00 of Care Georgie SAMANIEGO 350.1.13.10 it y of [place] 4[place]2.7.2.[place] [id number] [facility] [address] 2021-02-04 2021-02-09 Inpatient X MIGUEL [facility] [id number] Univers 20:57:00 13:26:00 JENNIFER ity [facility] 2021-02-04 2021-02-09 [facility] Jamie Deng [facility] 1.2.840.1 14 [id number] Univers 20:57:00 13:26:00 Encounter Wilber Flowers 350.1.13.10 ity of [place] 4.2.7.2.686 [facility] [phone] [facility] [address] 2021-01-02 2021-01-02 Inspector Mechanical Farnaz, Andre Lab Main [facility] 1.2.8 40.114 [id number] Univers 11:35:12 11:50:12 Visit [place] Dan 350.1.13.10 ity of [place] [phone] Ri dical nal 353 [facility] 2021-01-02 2021-01-02 Outpatient R SY [facility] [id number] Univers 11:45:00 11:45:00 [place] perez o f [facility] 2021-01-02 2021-01-02 Outpatient R SY [facility] [id number] Univers 11:45:00 11:45:00 [place] perez o [facility] 2021-01-02 2021-01-02 Orders Doctor JOHANN 1.2.840.114 [id number] Univers 00:00:00 00:00:00 Only Unassigned, MIKE 350.1.13.10 ity of [place] [facility] 4.2.7.2.686 Babak as [phone] [address] 2021-01-02 2021-01-02 Telephone [facility] 1.2.790.309 [id number] Univers 00:00:00 00:00:00 [place] Aranda 350.1.13.10 ity of [place].2.[place] [phone] Ri dical nal 059 [facility] 2021-01-02 2021-01-02 [facility] 1.2.840.114 [id number] Univers 00:00:00 00:00:00 [place] Aranda 350.1.13.10 ity of [place].2.[place] [phone] Ri dical nal 059 [facility] 2020-12-07 2020-12-07 Inspector Mechanical Farnaz, Adc Lab Main [facility] 1.2.8 40.114 [id number] Univers 08:05:37 08:20:37 Visit SyJamaica 350.1.13.10 ity of [place] 4.2.7.2.686 [place] [phone] Ri dical nal 353 [facility] 2020-12-07 2020-12-07 [facility] [id number] Univers 08:00:00 08:00:00 [place] perez o f [facility] 2020-12-07 2020-12-07 [facility] [id number] Univers 08:00:00 08:00:00 [place] perez o f [facility] 2020-12-07 2020-12-07 [facility]phone [facility] [id number] Univers 00:00:00 00:00:00 [place] Aranda [id number] [id number] [phone] Ri dical nal 059 [facility] 2020-11-23 2020-11-23 Outpatient R SY, [facility] [id number] Univers 13:37:45 23:59:00 [place] perez o [facility] 2020-11-23 2020-11-23 Outpatient R SY, [facility] [id number] Univers 13:37:45 23:59:00 [place] perez o [facility] 2020-11-14 2020-11-14 Outpatient R SY, [facility] [id number] Univers 13:40:00 13:40:00 [place] perez o [facility] 2020-10-12 2020-10-12 Outpatient R YS, [facility] [id number] Univers 08:00:00 08:00:00 [place] perez [facility] 2020-09-27 2020-09-27 Outpatient R SY, [facility] [id number] Univers 13:00:00 13:00:00 [place] perez [facility] 2020-09-22 2020-09-22 Outpatient R SY, [facility] [id number] Univers 09:30:00 09:30:00 CATRINAZAHEER perez [facility] 2020-09-07 2020-09-07 Outpatient R SY, [facility] [id number] Univers 08:45:00 08:45:00 [place] perez o [facility] 2020-08-19 2020-08-19 Outpatient R SY, [facility] [id number] Univers 08:45:00 08:45:00 [place] perez o [facility] 2020-08-15 2020-08-15 Outpatient R SY, [facility] [id number] Univers 10:45:00 10:45:00 [place] perez [facility] 2020-08-08 2020-08-08 Outpatient R SY, [facility] [id number] Univers 11:45:00 11:45:00 [facility] 2020-08-08 2020-08-08 Inspector Mechanical Farnaz, Andre [facility] 1.2.840.114 [id number] 11:14:44 11:29:44 Visit Lab Main [place] 350.1.13.10 [place] 4.2.7.2.686 Professio [phone] [facility] 353 [facility] 2020-08-08 2020-08-08 Orders Doctor JOHANN 1.2.840.114 [id number] 00:00:00 00:00:00 Only Unassigned, MIKE 350.1.13.10 [place] [facility] 4.2.7.2.686 [id number] [id number] 2020-08-08 2020-08-08 Telephone [facility] 1.2.211.019 [id number] 00:00:00 00:00:00 [place] 350.1.13.10 [place] 4.2.7.2.686 Professio [phone] [address] 2020-07-25 2020-07-25 [facility] [id number] 00:00:00 00:00:00 [place] Aranda 350.1.13.10 [place] 4.2.7.2.686 Professio [phone] [address] 2020-07-20 2020-07-20 Outpatient R [facility] [id number] Univers 11:45:00 11:45:00 JAMAICA perez o f [facility] 2020-07-20 2020-07-20 Inspector Mechanical Andre Osei [facility] 1.2.840.114 [id number] 10:37:03 10:52:03 Visit Lab Main [place] 350.1.13.10 [place] 4.2.7.2.686 Professio [phone] [address] 2020-07-20 2020-07-20 Orders Doctor JOHANN 1.2.840.114 [id number] 00:00:00 00:00:00 Only Unassigned, MIKE 350.1.13.10 [place] [facility] 4.2.7.2.[id number] [facility] 2020-07-20 2020-07-20 Telephone [facility] 1.2.075.620 [id number] 00:00:00 00:00:00 Qiangjun [place] 350.1.13.10 [place] 4.2.7.2.686 Professio [phone] [facility] 059 [facility] 2020-07-13 2020-07-13 Outpatient R SY, [facility] [id number] Univers 10:15:00 10:15:00 ROGERZAHEER ana o [facility] 2020-07-13 2020-07-13 Inspector Mechanical Farnaz, [facility] 1.2.840.114 [id number] 09:23:20 09:38:20 Visit Lab Main [place] 350.1.13.10 [place] 4.2.7.2.686 Professio [phone] [facility] 353 [facility] 2020-07-13 2020-07-13 [facility] 1.2.009.790 [id number] 00:00:00 00:00:00 [place] 350.1.13.10 [place] 4.2.7.2.686 Professio [phone] [address] 2020-06-19 2020-06-19 [facility] 1.2.323.560 [id number] 00:00:00 00:00:00 [place] 350.1.13.10 [place] 4.2.7.2.686 Professio [phone] [address] 2020-06-17 2020-06-17 Inspector Mechanical Franaz [facility] 1.2.840.114 [id number] 09:22:55 09:37:55 Visit Lab Main [place] 350.1.13.10 [place] 4.2.7.2.686 Professio [phone] [facility] 353 [facility] 2020-06-17 2020-06-17 Outpatient R SY, [facility] [id number] Univers 09:30:00 09:30:00 JAMAICA perez o [facility] 2020-06-08 2020-06-08 [facility] 1.2.199.203 [id number] 00:00:00 00:00:00 [place] 350.1.13.10 [place] 4.2.7.2.686 Professio [phone] [address] 2020-06-07 2020-06-07 Inspector Mechanical Farnaz, [facility] 1.2.840.114 [id number] 08:57:47 09:12:47 Visit Lab Main [place] 350.1.13.10 [place] 4.2.7.2.686 Professio [phone] [address] 2020-06-07 2020-06-07 Outpatient R [facility] [id number] Univers 09:00:00 09:00:00 JAMAICA jimenes [facility] 2020-05-23 2020-05-23 Outpatient R [facility] [id number] Univers 09:15:00 09:15:00 J[place]ICA jimenes [facility] 2020-05-16 2020-05-16 Outpatient R [facility] [id number] Univers 11:30:00 11:30:00 [place] jimenes [facility] 2020-05-16 2020-05-16 Inspector Mechanical Farnaz, [facility] 1.2.840.114 [id number] 11:09:17 11:24:17 Visit Lab Main [place] 350.1.13.10 [place] 4.2.7.2.686 Professio [phone] [address] 2020-05-16 2020-05-16 Orders Doctor JOHANN 1.2.840.114 [id number] 00:00:00 00:00:00 Only Unassigned, MIKE 350.1.13.10 [place] [facility] 4.2.7.2.686 [id number] [id number] 2020-05-16 2020-05-16 Telephone [facility] 1.2.489.351 [id number] 00:00:00 00:00:00 Catrinamerzaheer [place] 350.1.13.10 [place] 4.2.7.2.686 Professio [phone] [address] 2020-05-11 2020-05-11 Inspector Mechanical Farnaz, [facility] 1.2.840.114 [id number] 09:25:07 09:40:07 Visit Lab Main [place] 350.1.13.10 [place] 4.2.7.2.686 Professio [phone] [address] 2020-05-11 2020-05-11 Outpatient R JEREMIAS, [facility] [id number] Univers 09:30:00 09:30:00 SENDIL ity of [facility] 2020-05-11 2020-05-11 Telephone [facility] 1.2.140.873 [id number] 00:00:00 00:00:00 [place] 350.1.13.10 [place] 4.2.7.2.686 Professio [phone] [address] 2020-05-11 2020-05-11 Telephone [facility] 1.2.780.393 [id number] 00:00:00 00:00:00 [place] 350.1.13.10 [place] 4.2.7.2.686 Professio [phone] [address] 2020-05-04 2020-05-04 Telephone [facility] 1.2.520.732 [id number] 00:00:00 00:00:00 [place] 350.1.13.10 [place] 4.2.7.2.686 Professio [phone] [address] 2020-05-03 2020-05-03 [id number] [facility] 11:30:00 11:30:00 JAMAICA perez o f [facility] 2020-05-03 2020-05-03 Inspector Mechanical Farnaz [facility] 1.2.840.114 [id number] 10:05:00 10:20:00 Visit Lab Main [place] 350.1.13.10 [place] 4.2.7.2.686 Professio [phone] [address] 2020-05-03 2020-05-03 Orders Doctor JOHANN 1.2.840.114 [id number] 00:00:00 00:00:00 Only Unassigned, MIKE 350.1.13.10 [place] [facility] 4.2.7.2.686 [id number] [id number] 2020-04-27 2020-04-27 Inspector Mechanical Farnaz [facility] 1.2.840.114 [id number] 08:24:03 08:39:03 Visit Lab Mukul [place] 350.1.13.10 [place] 4.2.7.2.686 Professio [phone] [facility] 353 [facility] 2020-04-27 2020-04-27 Outpatient R SY, [facility] [id number] Univers 08:30:00 08:30:00 JAMAICA perez o [facility] 2020-04-27 2020-04-27 Telephone [facility] [id number] 00:00:00 00:00:00 [place] 350.1.13.10 [place] 4.2.7.2.686 Professio [phone] [facility] 059 [facility] 2020-04-20 2020-04-20 Refill [facility] 1.2.840.114 [id number] 00:00:00 00:00:00 [place] 350.1.13.10 [place] 4.2.7.2.686 Professio [phone] [address] 2020-04-01 2020-04-01 Outpatient R TIMBO, [facility] [id number] Univers 10:15:00 10:15:00 NICK perez [facility] 2020-03-29 2020-03-29 Office [facility] 1.2.840.114 [id number] 14:32:40 15:25:41 Visit [place] 350.1.13.10 [place] 4.2.7.2.686 Professio [phone] [address] 2020-03-29 2020-03-29 Outpatient R SY, [facility] [id number] Univers 14:40:00 14:40:00 CATRINAJUAN perez o [facility] 2020-03-22 2020-03-22 Outpatient R SY, [facility] [id number] Univers 15:30:00 15:30:00 CATRINAJUAN perez o [facility] 2020-03-15 2020-03-15 Outpatient R SY, [facility] [id number] Univers 11:15:00 11:15:00 ROGERZAHEER perez o [facility] 2020-02-24 2020-02-24 Outpatient R SY, [facility] [id number] Univers 08:40:00 08:40:00 QIANGJUN ity o f [facility] 2020-02-17 2020-02-17 Outpatient R SY, [facility] [id number] Univers 09:15:00 09:15:00 QIANGJUN ity o f [facility] 2020-01-11 2020-01-11 Outpatient R SY, [facility] [id number] Univers 12:45:00 12:45:00 QIANGJUN ity o f [facility] 2019-12-17 2019-12-17 Outpatient R SY, [facility] [id number] Univers 11:00:00 11:00:00 QIANGJUN ity o [facility] 2019-11-26 2019-11-26 Outpatient R SY, [facility] [id number] Univers 12:45:00 12:45:00 QIANGJUN ity o [facility] 2019-10-30 2019-10-30 Outpatient R RADIOLOGY [facility] [id number] Univers 00:00:00 00:00:00 ity [facility] 2019-10-20 2019-10-20 Outpatient R MCDERMOTT, ALICJA [facility] [id number] Univers 09:30:00 09:30:00 ity [facility] 2019-09-30 2019-09-30 Outpatient R SY, [facility] [id number] Univers 08:30:00 08:30:00 QIANGJUN ity o [facility] 2019-09-08 2019-09-08 Outpatient R SY, [facility] [id number] Univers 15:20:00 15:20:00 QIANGJUN ity o [facility] 2019-09-03 2019-09-03 Outpatient R SY, [facility] [id number] Univers 09:00:00 09:00:00 QIANGJUN ity o [facility] 2019-07-24 2019-07-24 Outpatient R SY, [facility] [id number] Univers 11:45:00 11:45:00 QIANGJUN ity o f [facility] 2019-06-22 2019-06-22 Outpatient R SY, [facility] [id number] Univers 13:30:00 13:30:00 QIANGJUN ana jimenes f [facility] Results Test Description Test Time Test Comments [...] indications. Lab Interpretation (test code Abnormal = 09931-4) [facility] / [id number] 15:08:40 Test Item Value Reference Range Interpretation Comments PROTIME PATIENT (test 24.8 See_Comment H [Auto mated message] code = 5964-2) The system [employer] generated this result transmitted ref erence range: 12.0 - 1 4.7 Seconds. The reference range was not used to int erpret this result as normal/abnormal . INR (test code = 6301-6) 2.3 Nor mal INR <1.1; Warfarin Therap eutic range 2.0 to 3. 0 or 2.5 to 3.5, dep ending upon the indica tions. Lab Interpretation (test Abnormal code = 25482-4) [facility] / [id number] 15:08:40 Test Item Value Reference Range Interpretation Comments PROTIME PATIENT (test 24.8 See_Comment H [Auto mated message] code = 5964-2) The system [employer] generated this result transmitted ref erence range: 12.0 - 1 4.7 Seconds. The reference range was not used to int erpret this result as normal/abnormal . INR (test code = 6301-6) 2.3 Nor mal INR <1.1; Warfarin Therap eutic range 2.0 to 3. 0 or 2.5 to 3.5, dep ending upon the indica tions. Lab Interpretation (test Abnormal code = 86659-3) [facility] / [id number] 18:32:10 Test Item Value Reference Range Interpretation Comments PROTIME PATIENT (test 24.4 See_Comment H [Auto mated message] code = 5964-2) The system [employer] generated this result transmitted ref erence range: 12.0 - 1 4.7 Seconds. The reference range was not used to int erpret this result as normal/abnormal . INR (test code = 6301-6) 2.2 Nor mal INR <1.1; Warfarin Therap eutic range 2.0 to 3. 0 or 2.5 to 3.5, dep ending upon the indica tions. Lab Interpretation (test Abnormal code = 19921-3) [facility]2022-06-11 22:45:29 Test Item Value Reference Range Interpretation Comments Height (test code = 63 in 5994184969) Weight (test code = 102 lbs 0422516621) Systolic BP (test 123 mmHg code = 9426745233) Diastolic BP (test 64 mmHg code = 4889726725) Heart Rate (test code 61 bpm = 3168917936) LVOT peak amrita (test 114.0 cm/s code = 3051379910) LVOT mn grad (test 3.0 mmHg code = 1585417308) Aortic valve mean 209.0 cm/s velocity (test code = 4661203131) Ao peak amrita (test 333.0 cm/s code = 8567410830) Ao VTI (test code = 71.7 cm 9680183829) AV LVOT peak gradient 5.2 mmHg (test code = 6494833636) LVOT peak VTI (test 29.0 cm code = 0112488615) AV Doppler amrita index 0.34 ratio VTI (test code = 3052028548) LV V1 mean (test code 82.60 cm/s = 7356278439) Ao max PG (test code 44.40 mm[Hg] = 9163011285) AV peak gradient 44.4 mmHg (test code = 1021160975) AV mean gradient 21.0 mmHg (test code = 6501322140) Radiology Study observation (narrative) (test code = 52688-1) ROBERT (test code = ROBERT) ?Aortic?Valve: Mechanical [...] captured. The probe was inserted by the leather skinner. Probe in 0930. Probe out 0940. Moderate sedation was given. 4% Lidocaine was used for local oropharyngeal anesthesia. 1 mg of midazolam and 50 mcg of Fentanyl were administered during the study. There were no complications during the procedure. Based on abnormal findings of 2D echocardiogram, 3D was performed on an acquisition scanner for further assessment of the aortic valve. PHILLPI OQUENDO [facility] METABOLIC PANEL (NA, K, CL, CO2, GLUCOSE, BUN, CREATININE, CA)2022-06-11 09:30:25 Test Item Value Reference Range Interpretation Comments NA (test code = 137 mmol/L 135-145 9421843150) K (test code = 4.3 mmol/L 3.5-5.0 5442591714) CL (test code = 104 mmol/L 98-108 8512228252) CO2 TOTAL (test code = 30 mmol/L 23-31 9819317597) AGAP (test code = 3 2-16 3746439265) BUN (test code = 19 mg/dL 7-23 8134038074) GLUCOSE (test code = 102 mg/dL 70-110 2544767687) CREATININE (test code = 0.93 mg/dL 0.50-1.04 8955469637) CALCIUM (test code = 8.5 mg/dL 8.6-10.6 L 9797265831) eGFR (test code = 59.8 mL/min/1.73m2 5334498509) ROBERT (test code = ROBERT) Association of [...] tests). Lab Interpretation Abnormal (test code = 69214-7) [facility]2023-02-27 09:30:25 Test Item Value Reference Range Interpretation Comments MAGNESIUM (test code = 0888836960) 2.1 mg/dL 1.7-2.4 Lab Interpretation (test code = Normal 33400-9) [facility] / [id number] 09:18:08 Test Item Value Reference Range Interpretation Comments PROTIME PATIENT (test 19.8 See_Comment H [Auto mated message] code = 5964-2) The system [employer] generated this result transmitted ref erence range: 10.1 - 1 2.6 Seconds. The reference range was not used to int erpret this result as normal/abnormal . INR (test code = 6301-6) 1.8 Nor mal INR <1.1; Warfarin Therap eutic range 2.0 to 3. 0 or 2.5 to 3.5, dep ending upon the indica tions. Lab Interpretation (test Abnormal code = 36893-5) [facility]PTT2023-02-27 09:18:08 Test Item Value Reference Range Interpretation Comments APTT Patient (test code 89 See_Comment H [Au tomated message] = 3173-2) The system [employer] generated this result transmitted ref erence range: 26 - 36 Seconds. The reference range was not used to int erpret this result as normal/abnormal . Lab Interpretation (test Abnormal code = 07146-7) [facility] 08[facility]57:55 Test Item Value Reference Range Interpretation Comments MAGNESIUM (test code = 4107267174) 1.8 mg/dL 1.7-2.4 Lab Interpretation (test code = Normal 35302-8) [facility] METABOLIC PANEL (NA, K, CL, CO2, GLUCOSE, BUN, CREATININE, CA)2022-06-10 08:57:55 Test Item Value Reference Range Interpretation Comments NA (test code = 137 mmol/L 135-145 8322148625) K (test code = 4.0 mmol/L 3.5-5.0 0689456694) CL (test code = 100 mmol/L 98-108 2678262437) CO2 TOTAL (test code = 32 mmol/L 23-31 H 9173298169) AGAP (test code = 5 2-16 0559692828) BUN (test code = 24 mg/dL 7-23 H 7721330239) GLUCOSE (test code = 116 mg/dL 70-110 H 0332527724) CREATININE (test code = 1.00 mg/dL 0.50-1.04 3750541287) CALCIUM (test code = 9.1 mg/dL 8.6-10.6 4236490752) eGFR (test code = 55.0 mL/min/1.73m2 9820618377) ROBERT (test code = ROBERT) Association of [...] tests). Lab Interpretation Abnormal (test code = 90838-7) [facility] / [id number] 08:46:38 Test Item Value Reference Range Interpretation [...] tions. Lab Interpretation (test Abnormal code = 42140-5) [facility]2023-[facility]-26 08:46:38 Test Item Value Reference Range Interpretation Comments APTT Patient (test code 85 See_Comment H [Au tomated message] = 0823-2) The system [employer] generated this result transmitted ref erence range: 26 - 36 Seconds. The reference range was not used to int erpret this result as normal/abnormal . Lab Interpretation (test Abnormal code = 03673-8) [facility] WITH [id number] 08:39:15 Test Item Value Reference Range Interpretation Comments WBC (test code = 4.75 See_Comment [Automated 6690-2) message] The sy stem which generated this result transmitted reference range : 4.30 - 11.10 10*3/?L. The reference range was not used to interpret this result as normal/abnormal . RBC (test code = 3.55 See_Comment L [Automated 739-8) message] The sy stem which generated this [...] (test code = 58.1 fL 39.0-49.9 H 67975-5) RDW-CV (test code = 16.1 % 12.0-15.5 H 788-0) PLT (test code = 197 See_Comment [Automated 777-3) message] The sy stem which generated this result transmitted reference range : 166 - 358 10*3/ ?L. The reference r tali was not used to interpret this result as normal/abnormal . MPV (test code = 10.2 fL 9.5-12.9 01595-7) NRBC/100 WBC (test 0.0 See_Comment [Automat ed code = 9151877196) message] The system which generated this result transmitted reference range : 0.0 - 10.0 /100 WBCs. The refer ence range was not u sed to interpret th is result as normal/abnormal . NRBC x10^3 (test code See_Comment [Auto mated = 3075241757) message] The s ystem which generated this result transmitted reference range : 10*3/?L. The reference range was not used to interpret this result as normal/abnormal . GRAN MAT (NEUT) % 58.4 % (test code = 770-8) IMM GRAN % (test code 0.20 % = 8081003006) LYMPH % (test code = 24.2 % 736-9) MONO % (test code = 10.9 % 5905-5) EOS % (test code = 5.5 % 713-8) BASO % (test code = 0.8 % 706-2) GRAN MAT x10^3(ANC) 2.77 10*3/uL 1.88-7.09 (test code = 5611630167) IMM GRAN x10^3 (test 0.00-0.06 code = 8640667280) LYMPH x10^3 (test code 1.15 10*3/uL 1.32-3.29 L = 731-0) MONO x10^3 (test code 0.52 10*3/uL 0.33-0.92 = 742-7) EOS x10^3 (test code = 0.26 10*3/uL 0.03-0.39 711-2) BASO x10^3 (test code 0.04 10*3/uL 0.01-0.07 = 704-7) Lab Interpretation Abnormal (test code = 77968-2) [facility]2023-02-25 10:39:27 Test Item Value Reference Range Interpretation Comments MAGNESIUM (test code = 1970926111) 1.6 mg/dL 1.7-2.4 L Lab Interpretation (test code = Abnormal 79748-5) [facility] METABOLIC PANEL (NA, K, CL, CO2, GLUCOSE, BUN, CREATININE, CA)2022-06-09 10:39:27 Test Item Value Reference Range Interpretation Comments NA (test code = 139 mmol/L 135-145 5241671322) K (test code = 4.1 mmol/L 3.5-5.0 6821944069) CL (test code = 96 mmol/L 98-108 L 3319424356) CO2 TOTAL (test code = 36 mmol/L 23-31 H 1603531685) AGAP (test code = 7 2-16 1360780342) BUN (test code = 27 mg/dL 7-23 H 4633725470) GLUCOSE (test code = 116 mg/dL 70-110 H 0370359967) CREATININE (test code = 1.21 mg/dL 0.50-1.04 H 3538980198) CALCIUM (test code = 9.3 mg/dL 8.6-10.6 4099036364) eGFR (test code = 44.1 mL/min/1.73m2 3401224719) ROBERT (test code = ROBERT) Association of [...] tests). Lab Interpretation Abnormal (test code = 23816-6) [facility] / [id number] 10:26:27 Test Item Value Reference Range Interpretation Comments PROTIME PATIENT (test 18.7 See_Comment H [Auto mated message] code = 5964-2) The system [employer] generated this result transmitted ref erence range: 10.1 - 1 2.6 Seconds. The reference range was not used to int erpret this result as normal/abnormal . INR (test code = 6301-6) 1.7 Nor mal INR <1.1; Warfarin Therap eutic range 2.0 to 3. 0 or 2.5 to 3.5, dep ending upon the indica tions. Lab Interpretation (test Abnormal code = 08904-3) [facility] WITH [id number] 10:16:07 Test Item Value Reference Range Interpretation Comments WBC (test code = 7.65 See_Comment [Automated 8290-2) message] The sy stem which generated this result transmitted reference range : 4.30 - 11.10 10*3/?L. The reference range was not used to interpret this result as normal/abnormal . RBC (test code = 3.99 See_Comment [Automated 749-8) message] The sy stem which generated this [...] (test code = 58.8 fL 39.0-49.9 H 38448-2) RDW-CV (test code = 16.3 % 12.0-15.5 H 788-0) PLT (test code = 244 See_Comment [Automated 777-3) message] The sy stem which generated this result transmitted reference range : 166 - 358 10*3/ ?L. The reference r tali was not used to interpret this result as normal/abnormal . MPV (test code = 10.1 fL 9.5-12.9 98196-1) NRBC/100 WBC (test 0.0 See_Comment [Automat ed code = 0240070472) message] The system which generated this result transmitted reference range : 0.0 - 10.0 /100 WBCs. The refer ence range was not u sed to interpret th is result as normal/abnormal . NRBC x10^3 (test code See_Comment [Auto mated = 4556110517) message] The s ystem which generated this result transmitted reference range : 10*3/?L. The reference range was not used to interpret this result as normal/abnormal . GRAN MAT (NEUT) % 75.8 % (test code = 770-8) IMM GRAN % (test code 0.30 % = 3934169953) LYMPH % (test code = 12.5 % 736-9) MONO % (test code = 8.5 % 5905-5) EOS % (test code = 2.0 % 713-8) BASO % (test code = 0.9 % 706-2) GRAN MAT x10^3(ANC) 5.80 10*3/uL 1.88-7.09 (test code = 5824489214) IMM GRAN x10^3 (test 0.00-0.06 code = 4528417905) LYMPH x10^3 (test code 0.96 10*3/uL 1.32-3.29 L = 731-0) MONO x10^3 (test code 0.65 10*3/uL 0.33-0.92 = 742-7) EOS x10^3 (test code = 0.15 10*3/uL 0.03-0.39 711-2) BASO x10^3 (test code 0.07 10*3/uL 0.01-0.07 = 704-7) Lab Interpretation Abnormal (test code = 18843-6) [facility] ([facility]E)2022-06-07 21:12:16 Test Item Value Reference Range Interpretation Comments Height (test code = 63 in 3427495293) Weight (test code = 101 lbs 4452709049) Systolic BP (test code 127 mmHg = 6279993156) Diastolic BP (test code 43 mmHg = 3827331889) Heart Rate (test code = 50 bpm 5159246662) BSA (test code = 1.45 m2 2376197142) LVOT diameter (test 1.62 cm code = 4505265754) LVOT area (test code = 2.05 cm2 2293839237) Ao root diam (test code 2.34 cm = 8747994422) Aortic root (test code 2.34 cm = 4300375200) Ao root annulus (test 2.34 cm code = 2494092845) LA size (test code = 4.9 cm 2907915928) TR Peak Amrita (test code 209.0 cm/s = 7165637473) Triscuspid Valve 17.5 mmHg Regurgitation Peak Gradient (test code = 3716609301) PV REGURGITATION PEAK 8.9 mmHg GRADIENT (test code = 1162470778) PI dec slope (test code 81.30 cm/s2 = 6956106756) E wave decelartion time 0.26 s (test code = 5371950575) MV Peak A Amrita (test 58.0 cm/s code = 5062159645) MV Peak E Amrita (test 116.0 cm/s code = 2915589396) E/A ratio (test code = 2.00 ratio 5348751711) MR max PG (test code = 125.90 mm[Hg] 5974672810) MR max amrita (test code = 561.00 cm/s 1530320519) Mr max amrita (test code = 561.0 m/s 7941714732) MV Prop V (test code = 33.60 cm/s 6717254540) LAV(MOD-sp4) (test code 50.40 mL = 2245236457) MV E/e' septal (test 5.1 cm/s code = 2918140438) Tapse (test code = 1.37 cm 9997718570) LVOT stroke volume 42.60 cm3 (test code = 8035258521) LVOT peak amrita (test 96.3 cm/s code = 0373703180) LVOT mn grad (test code 1.6 mmHg = 5176829677) AV LVOT peak gradient 3.7 mmHg (test code = 9611322540) LVOT peak VTI (test 20.8 cm code = 1504200503) LV V1 mean (test code = 59.50 cm/s 2806176730) LA Volume Index (BP) 39.6 mL/m2 (test code = 1543242317) LA volume (BP) (test 57.2 mL code = 9505922761) LAV(MOD-sp2) (test code 59.90 mL = 5471705550) AV regurgitation 482.7 ms pressure 1/2 time (test code = 8781004215) AI dec slope (test code 212.30 cm/s2 = 6231292944) AI max amrita (test code = 349.90 cm/s 2355073111) AI max PG (test code = 49.00 mm[Hg] 8318662177) LVIDD (test code = 3.90 cm 3832642988) Left Ventricular End 66.7 mL Diastolic Volume by Teichholz Method (test code = 1248895) EF(Teich) (test code = 67.60 % 4057191957) FS (test code = 37 % 8885201157) EF - 2D (test code = 67.60 % 37953235) IVS (test code = 1.22 cm 7278947227) Interventricular Septum 1.22 cm Diastolic Thickness by 2D (test code = 5531586) LVPWD (test code = 1.12 cm 5407249315) PW (test code = 1.12 cm 0.6-1.7 8357727970) LVIDS (test code = 2.47 cm 0716445582) Left Ventricular End 21.6 mL Systolic Volume by Teichholz Method (test code = 9321682) Aortic valve mean 210.4 cm/s velocity (test code = 5992921187) Ao peak amrita (test code 307.4 cm/s = 0713002521) Ao VTI (test code = 68.2 cm 5181851612) AV area by cont VTI 0.6 cm2 (test code = 2366648558) AV area peak amrita (test 0.6 cm2 code = 9237817999) Ao max PG (test code = 37.80 mm[Hg] 2624037429) AV peak gradient (test 37.8 mmHg code = 7773010654) AV valve area (test 0.63 cm2 code = 8671211805) AV mean gradient (test 19.8 mmHg code = 3839715033) Radiology Study observation (narrative) (test code = 08304-5) ROBERT (test code = ROBERT) ?Left?Ventricle: Left [...] 2D, color flow Doppler and spectral Doppler. [facility] METABOLIC [id number] 05:06:36 Test Item Value Reference Range Interpretation [...] not appl icable for dialysis patien ts Flake Drier ID - ARMAND GASEECDUPY2758-17-01 05:06:35 Test Item Value Reference Range Interpretation Comments MAGNESIUM (BEAKER) 1.7 mg/dL 1.6-2.6 Specimen slightly (test code = 627) hemolyzed Flake Drier ID - ARMAND LPROTHROMBIN TIME/[id number] 04:57:12 Test Item Value Reference Range Interpretation [...] mechanical heart valves.CBC W/PLT COUNT & AUTO [id number] 04:49:51 Test Item Value Reference Range Interpretation [...] 0.00-1.00 PERCENT (BEAKER) (test code = 2801) [id number] 10:05:40 Test Item Value Reference Range Interpretation Comments PARTIAL THROMBOPLASTIN TIME 49.3 seconds 22.5-36.0 H (BEAKER) (test code = 760) [id number] 07:34:27 Test Item Value Reference Range Interpretation Comments PARTIAL THROMBOPLASTIN TIME > seconds 22.5-36.0 HH (BEAKER) (test code = 760) [id number] 07:21:03 Test Item Value Reference Range Interpretation Comments MAGNESIUM (BEAKER) (test code = 2.0 mg/dL 1.6-2.6 627) Flake Drier ID - PIAYA LBASIC METABOLIC [id number] 07:21:02 Test Item Value Reference Range Interpretation [...] not appl icable for dialysis patien ts Flake Drier ID - PIAYA LPROTHROMBIN TIME/[id number] 07:11:04 Test Item Value Reference Range Interpretation [...] mechanical heart valves.CBC W/PLT COUNT & AUTO [id number] 06:42:15 Test Item Value Reference Range Interpretation [...] 0.00-1.00 PERCENT (BEAKER) (test code = 2801) [id number] 01:06:03 Test Item Value Reference Range Interpretation Comments PARTIAL THROMBOPLASTIN TIME 90.3 seconds 22.5-36.0 H (BEAKER) (test code = 760) [id number] 23:34:15 Test Item Value Reference Range Interpretation Comments PARTIAL THROMBOPLASTIN TIME > seconds 22.5-36.0 HH (BEAKER) (test code = 760) [id number] 14:56:56 Test Item Value Reference Range Interpretation Comments PARTIAL THROMBOPLASTIN TIME 40.2 seconds 22.5-36.0 H (BEAKER) (test code = 760) [id number] 12:49:04 Test Item Value Reference Range Interpretation Comments PARTIAL THROMBOPLASTIN TIME 139.9 seconds 22.5-36.0 H (BEAKER) (test code = 760) [id number] 08:00:43 Test Item Value Reference Range Interpretation Comments MAGNESIUM (BEAKER) (test code = 1.5 mg/dL 1.6-2.6 L 627) Flake Drier ID - MARCOBASIC METABOLIC [id number] 08:00:42 Test Item Value Reference Range Interpretation [...] not appl icable for dialysis patien ts Flake Drier ID - [id number] 06:54:28 Test Item Value Reference Range Interpretation Comments PARTIAL THROMBOPLASTIN TIME 180.9 seconds 22.5-36.0 HH (BEAKER) (test code = 760) [id number] 06:30:25 Test Item Value Reference Range Interpretation Comments PARTIAL THROMBOPLASTIN TIME 61.3 seconds 22.5-36.0 H (BEAKER) (test code = 760) [id number] 04:16:14 Test Item Value Reference Range Interpretation Comments PARTIAL THROMBOPLASTIN TIME > seconds 22.5-36.0 HH (BEAKER) (test code = 760) PROTHROMBIN TIME/[id number] 03:42:33 Test Item Value Reference Range Interpretation [...] mechanical heart valves.CBC W/PLT COUNT & AUTO [id number] 03:35:52 Test Item Value Reference Range Interpretation [...] 0.00-1.00 PERCENT (BEAKER) (test code = 2801) [id number] 20:27:00 Test Item Value Reference Range Interpretation Comments PARTIAL THROMBOPLASTIN TIME 53.4 seconds 22.5-36.0 H (BEAKER) (test code = 760) [id number] 18:26:32 Test Item Value Reference Range Interpretation Comments PARTIAL THROMBOPLASTIN TIME 112.2 seconds 22.5-36.0 H (BEAKER) (test code = 760) [id number] 10:53:07 Test Item Value Reference Range Interpretation Comments PARTIAL THROMBOPLASTIN TIME 48.7 seconds 22.5-36.0 H (BEAKER) (test code = 760) [id number] 04:20:11 Test Item Value Reference Range Interpretation Comments PARTIAL THROMBOPLASTIN TIME 50.2 seconds 22.5-36.0 H (BEAKER) (test code = 760) [id number] 02:16:45 Test Item Value Reference Range Interpretation Comments PARTIAL THROMBOPLASTIN TIME 120.7 seconds 22.5-36.0 H (BEAKER) (test code = 760) [id number] 01:49:02 Test Item Value Reference Range Interpretation Comments MAGNESIUM (BEAKER) (test code = 1.7 mg/dL 1.6-2.6 627) Flake Drier ID - [id number] 01:49:02 Test Item Value Reference Range Interpretation Comments PHOSPHORUS (BEAKER) (test code = 4.7 mg/dL 2.3-4.7 604) Flake Drier ID - BSBASIC METABOLIC [id number] 01:49:01 Test Item Value Reference Range Interpretation [...] eGFR (test code = mL/min/1.73 values Stage D escription 1092) sq m Result G1 Stephy l [...] not appl icable for dialysis patien ts Flake Drier ID - BSPROTHROMBIN TIME/[id number] 01:46:19 Test Item Value Reference Range Interpretation [...] mechanical heart valves.CBC W/PLT COUNT & AUTO [id number] 01:29:16 Test Item Value Reference Range Interpretation [...] H PERCENT (BEAKER) (test code = 2801) [id number] 18:43:50 Test Item Value Reference Range Interpretation Comments PARTIAL THROMBOPLASTIN TIME 56.0 seconds 22.5-36.0 H (BEAKER) (test code = 760) [id number] 16:49:50 Test Item Value Reference Range Interpretation Comments PARTIAL THROMBOPLASTIN TIME 123.0 seconds 22.5-36.0 H (BEAKER) (test code = 760) [id number] 08:57:26 Test Item Value Reference Range Interpretation Comments PARTIAL THROMBOPLASTIN TIME 48.3 seconds 22.5-36.0 H (BEAKER) (test code = 760) [id number] 05:52:08 Test Item Value Reference Range Interpretation Comments PARTIAL THROMBOPLASTIN TIME 134.4 seconds 22.5-36.0 H (BEAKER) (test code = 760) PROTHROMBIN TIME/[id number] 05:18:02 Test Item Value Reference Range Interpretation Comments PROTIME (BEAKER) (test code = 14.1 seconds 11.9-14.2 759) INR (BEAKER) (test code = 370) 1.16 <=5.90 RECOMMENDED COUMADIN/WARFARIN INR THERAPY RANGESSTANDARD DOSE: 2.0 - 3.0 Includes: PROPHYLAXIS for venous thrombosis, systemic embolization; TREATMENT for venous thrombosis and/or pulmonary embolus.HIGH RISK: Target INR is 2.5-3.5 for patients with mechanical heart valves.[id number] 05:06:39 Test Item Value Reference Range Interpretation Comments PHOSPHORUS (BEAKER) (test code = 4.9 mg/dL 2.3-4.7 H 604) Flake Drier ID - BSBASIC METABOLIC [id number] 05:06:38 Test Item Value Reference Range Interpretation [...] not appl icable for dialysis patien ts Flake Drier ID - [id number] 05:06:38 Test Item Value Reference Range Interpretation Comments MAGNESIUM (BEAKER) (test code = 1.7 mg/dL 1.6-2.6 627) Flake Drier ID - BSCBC W/PLT COUNT & AUTO [id number] 04:48:51 Test Item Value Reference Range Interpretation [...] 0.00-1.00 PERCENT (BEAKER) (test code = 2801) [id number] 21:33:18 Test Item Value Reference Range Interpretation Comments PARTIAL THROMBOPLASTIN TIME 51.5 seconds 22.5-36.0 H (BEAKER) (test code = 760) HEMOGLOBIN AND [id number] 18:35:26 Test Item Value Reference Range Interpretation Comments HEMOGLOBIN (BEAKER) (test code = 9.5 GM/DL 11.2-15.7 L 410) HEMATOCRIT (BEAKER) (test code = 30.9 % 34.1-44.9 L 411) Flake Drier ID - [id number] 14:30:55 Test Item Value Reference Range Interpretation Comments PARTIAL THROMBOPLASTIN TIME 59.3 seconds 22.5-36.0 H (BEAKER) (test code = 760) [id number] 06:21:11 Test Item Value Reference Range Interpretation Comments PARTIAL THROMBOPLASTIN TIME 62.1 seconds 22.5-36.0 H (BEAKER) (test code = 760) PROTHROMBIN TIME/[id number] 03:22:14 Test Item Value Reference Range Interpretation Comments PROTIME (BEAKER) (test code = 14.8 seconds 11.9-14.2 H 759) INR (BEAKER) (test code = 370) 1.23 <=5.90 RECOMMENDED COUMADIN/WARFARIN INR THERAPY RANGESSTANDARD DOSE: 2.0 - 3.0 Includes: PROPHYLAXIS for venous thrombosis, systemic embolization; TREATMENT for venous thrombosis and/or pulmonary embolus.HIGH RISK: Target INR is 2.5-3.5 for patients with mechanical heart valves.[id number] 03:16:55 Test Item Value Reference Range Interpretation Comments MAGNESIUM (BEAKER) (test code = 2.2 mg/dL 1.6-2.6 627) Flake Drier ID - [id number] 03:16:55 Test Item Value Reference Range Interpretation Comments PHOSPHORUS (BEAKER) (test code = 3.8 mg/dL 2.3-4.7 604) Flake Drier ID - BSBASIC METABOLIC [id number] 03:16:54 Test Item Value Reference Range Interpretation [...] not appl icable for dialysis patien ts Flake Drier ID - BSCBC W/PLT COUNT & AUTO [id number] 02:57:48 Test Item Value Reference Range Interpretation [...] PERCENT (BEAKER) (test code = 2801) Prepare [id number] 23:54:00 Test Item Value Reference Range Interpretation Comments CROSSMATCH (test code = 2264) COMPATIBLE Unit ABO (test code = A Pos 9543387) UNIT NUMBER (test code = [id number] 934-0) Status (test code = 0211543) TX_TIMEINCHART Blood Bank Product (test code RED BLOOD CELLS = 2263) PRODUCT CODE (test code = Z8281S62 933-2) [facility] [id number] 23:54:00 Test Item Value Reference Range Interpretation Comments CROSSMATCH (test code = 2264) COMPATIBLE Unit ABO (test code = A Pos 5370748) UNIT NUMBER (test code = [id number] 934-0) Status (test code = 6335590) TX_TIMEINCHART Blood Bank Product (test code RED BLOOD CELLS = 2263) PRODUCT CODE (test code = E4508G35 933-2) [facility] [id number] 23:54:00 Test Item Value Reference Range Interpretation Comments CROSSMATCH (test code = 2264) COMPATIBLE Unit ABO (test code = A Pos 4778547) UNIT NUMBER (test code = [id number] 934-0) Status (test code = 2164318) TX_TIMEINCHART Blood Bank Product (test code RED BLOOD CELLS = 2263) PRODUCT CODE (test code = O2910B51 933-2) [facility] [id number] 23:54:00 Test Item Value Reference Range Interpretation Comments CROSSMATCH (test code = 2264) COMPATIBLE Unit ABO (test code = A Pos 6965634) UNIT NUMBER (test code = [id number] 934-0) Status (test code = 1738745) TX_TIMEINCHART Blood Bank Product (test code RED BLOOD CELLS = 2263) PRODUCT CODE (test code = I6299Y20 933-2) [facility] [id number] 23:54:00 Test Item Value Reference Range Interpretation Comments CROSSMATCH (test code = 2264) COMPATIBLE Unit ABO (test code = A Pos 8131787) UNIT NUMBER (test code = [id number] 934-0) Status (test code = 2154441) TX_TIMEINCHART Blood Bank Product (test code RED BLOOD CELLS = 2263) PRODUCT CODE (test code = P8657O33 933-2) [facility] [id number] 23:54:00 Test Item Value Reference Range Interpretation Comments CROSSMATCH (test code = 2264) COMPATIBLE Unit ABO (test code = A Pos 6067376) UNIT NUMBER (test code = [id number] 934-0) Status (test code = 4646563) TX_TIMEINCHART Blood Bank Product (test code RED BLOOD CELLS = 2263) PRODUCT CODE (test code = V0836D56 933-2) [facility]MO[facility] [id number] 21:46:53 Test Item Value Reference Range Interpretation Comments HEMOGLOBIN (BEAKER) (test code = 9.0 GM/DL 11.2-15.7 L 410) HEMATOCRIT (BEAKER) (test code = 30.5 % 34.1-44.9 L 411) Flake Drier ID - [id number] Echo W/Doppler(CW/PW/Color)2022-05-21 18:02:14Ejection FractionSLEH ECHO HEARTLAB [facility] Echo W/Doppler(CW/PW/Color)2022-05-21 18:02:14Ejection FractionSLEH ECHO [facility]ARTLAB [facility] Echo W/Doppler(CW/PW/Color) 2022-05-21 18:02:14Ejection FractionSLE ECHO [facility] Echo W/Doppler(CW/PW/Color)2022-05-21 18:02:14Ejection FractionSLEH ECHO [facility] Echo W/Doppler(CW/PW/Color)2022-05-21 18:02:14Ejection [facility]SLE [facility] W/Doppler(CW/PW/Color) 2022-05-21 18:02:14Ejection FractionSLE ECHO [facility] 15:07:17 Test Item Value Reference Range Interpretation Comments PARTIAL THROMBOPLASTIN TIME 68.4 seconds 22.5-36.0 H (BEAKER) (test code = 760) PROTHROMBIN TIME/[id number] 15:05:56 Test Item Value Reference Range Interpretation Comments PROTIME (BEAKER) (test code = 15.5 seconds 11.9-14.2 H 759) INR (BEAKER) (test code = 370) 1.31 <=5.90 RECOMMENDED COUMADIN/WARFARIN INR THERAPY RANGESSTANDARD DOSE: 2.0 - 3.0 Includes: PROPHYLAXIS for venous thrombosis, systemic embolization; TREATMENT for venous thrombosis and/or pulmonary embolus.HIGH RISK: Target INR is 2.5-3.5 for patients with mechanical heart valves.TSH/FREE T4 IF [id number] 13:50:00 Test Item Value Reference Range Interpretation Comments THYROID STIMULATING HORMONE 1.746 uIU/mL 0.350-4.940 (BEAKER) (test code = 772) Flake Drier ID - NIMOAYA LHEMOGLOBIN AND [id number] 13:00:10 Test Item Value Reference Range Interpretation Comments HEMOGLOBIN (BEAKER) (test code = 9.0 GM/DL 11.2-15.7 L 410) HEMATOCRIT (BEAKER) (test code = 29.3 % 34.1-44.9 L 411) Flake Drier ID - [id number] 08:55:39 Test Item Value Reference Range Interpretation Comments PARTIAL THROMBOPLASTIN TIME 70.0 seconds 22.5-36.0 H (BEAKER) (test code = 760) [id number] 05:39:20 Test Item Value Reference Range Interpretation Comments PHOSPHORUS (BEAKER) (test code = 3.3 mg/dL 2.3-4.7 604) Flake Drier ID - MARCOBASIC METABOLIC [id number] 05:39:19 Test Item Value Reference Range Interpretation [...] not appl icable for dialysis patien ts Flake Drier ID - [id number] 05:39:19 Test Item Value Reference Range Interpretation Comments MAGNESIUM (BEAKER) (test code = 1.6 mg/dL 1.6-2.6 627) Flake Drier ID - MARCOCBC W/PLT COUNT & AUTO [id number] 05:18:48 Test Item Value Reference Range Interpretation [...] 0.00-1.00 PERCENT (BEAKER) (test code = 2801) [id number] 01:34:38 Test Item Value Reference Range Interpretation Comments PARTIAL THROMBOPLASTIN TIME 94.3 seconds 22.5-36.0 H (BEAKER) (test code = 760) PROTHROMBIN TIME/[id number] 01:32:54 Test Item Value Reference Range Interpretation Comments PROTIME (BEAKER) (test code = 15.8 seconds 11.9-14.2 H 759) INR (BEAKER) (test code = 370) 1.35 <=5.90 RECOMMENDED COUMADIN/WARFARIN INR THERAPY RANGESSTANDARD DOSE: 2.0 - 3.0 Includes: PROPHYLAXIS for venous thrombosis, systemic embolization; TREATMENT for venous thrombosis and/or pulmonary embolus.HIGH RISK: Target INR is 2.5-3.5 for patients with mechanical heart valves.HEMOGLOBIN AND [id number] 20:48:52 Test Item Value Reference Range Interpretation Comments HEMOGLOBIN (BEAKER) (test code = 8.6 GM/DL 11.2-15.7 L 410) HEMATOCRIT (BEAKER) (test code = 27.9 % 34.1-44.9 L 411) Flake Drier ID - [id number] 17:34:13 Test Item Value Reference Range Interpretation Comments PARTIAL THROMBOPLASTIN TIME 53.7 seconds 22.5-36.0 H (BEAKER) (test code = 760) PROTHROMBIN TIME/[id number] 17:33:32 Test Item Value Reference Range Interpretation Comments PROTIME (BEAKER) (test code = 16.0 seconds 11.9-14.2 H 759) INR (BEAKER) (test code = 370) 1.37 <=5.90 RECOMMENDED COUMADIN/WARFARIN INR THERAPY RANGESSTANDARD DOSE: 2.0 - 3.0 Includes: PROPHYLAXIS for venous thrombosis, systemic embolization; TREATMENT for venous thrombosis and/or pulmonary embolus.HIGH RISK: Target INR is 2.5-3.5 for patients with mechanical heart valves.[id number] 13:24:26 Test Item Value Reference Range Interpretation Comments PARTIAL THROMBOPLASTIN TIME 70.7 seconds 22.5-36.0 H (BEAKER) (test code = 760) HEMOGLOBIN AND [id number] 13:10:45 Test Item Value Reference Range Interpretation Comments HEMOGLOBIN (BEAKER) (test code = 8.4 GM/DL 11.2-15.7 L 410) HEMATOCRIT (BEAKER) (test code = 27.0 % 34.1-44.9 L 411) Flake Drier ID - 6000Prepare [id number] 08:19:00 Test Item Value Reference Range Interpretation Comments CROSSMATCH (test code = 2264) COMPATIBLE Unit ABO (test code = A Pos 5632669) UNIT NUMBER (test code = [id number] 934-0) Status (test code = 6813729) ISSUED Blood Bank Product (test code RED BLOOD CELLS = 2263) PRODUCT CODE (test code = Y2355A97 933-2) [facility] [id number] 08:19:00 Test Item Value Reference Range Interpretation Comments CROSSMATCH (test code = 2264) COMPATIBLE Unit ABO (test code = A Pos 5653202) UNIT NUMBER (test code = [id number] 934-0) Status (test code = 8270783) ISSUED Blood Bank Product (test code RED BLOOD CELLS = 2263) PRODUCT CODE (test code = C8529B91 933-2) [facility] 05:24:24 Test Item Value Reference Range Interpretation Comments PARTIAL THROMBOPLASTIN TIME 91.6 seconds 22.5-36.0 H (BEAKER) (test code = 760) [id number] 04:22:23 Test Item Value Reference Range Interpretation Comments MAGNESIUM (BEAKER) (test code = 1.8 mg/dL 1.6-2.6 627) Flake Drier ID - ARMAND [id number] 04:22:23 Test Item Value Reference Range Interpretation Comments PHOSPHORUS (BEAKER) (test code = 4.1 mg/dL 2.3-4.7 604) Flake Drier ID - ARMAND LBASIC METABOLIC [id number] 04:22:22 Test Item Value Reference Range Interpretation [...] not appl icable for dialysis patien ts Flake Drier ID - ARMAND LPROTHROMBIN TIME/[id number] 03:58:55 Test Item Value Reference Range Interpretation [...] mechanical heart valves.CBC W/PLT COUNT & AUTO [id number] 03:54:23 Test Item Value Reference Range Interpretation [...] 0.00-1.00 PERCENT (BEAKER) (test code = 2801) [id number] 23:23:33 Test Item Value Reference Range Interpretation Comments PARTIAL THROMBOPLASTIN TIME 63.2 seconds 22.5-36.0 H (BEAKER) (test code = 760) HEMOGLOBIN AND [id number] 21:26:00 Test Item Value Reference Range Interpretation Comments HEMOGLOBIN (BEAKER) (test code = 7.6 GM/DL 11.2-15.7 L 410) HEMATOCRIT (BEAKER) (test code = 24.8 % 34.1-44.9 L 411) Flake Drier ID - [id number] 17:30:54 Test Item Value Reference Range Interpretation Comments PARTIAL THROMBOPLASTIN TIME 37.0 seconds 22.5-36.0 H (BEAKER) (test code = 760) PROTHROMBIN TIME/[id number] 17:29:53 Test Item Value Reference Range Interpretation Comments PROTIME (BEAKER) (test code = 18.3 seconds 11.9-14.2 H 759) INR (BEAKER) (test code = 370) 1.62 <=5.90 RECOMMENDED COUMADIN/WARFARIN INR THERAPY RANGESSTANDARD DOSE: 2.0 - 3.0 Includes: PROPHYLAXIS for venous thrombosis, systemic embolization; TREATMENT for venous thrombosis and/or pulmonary embolus.HIGH RISK: Target INR is 2.5-3.5 for patients with mechanical heart valves.PROTHROMBIN TIME/[id number] 12:31:00 Test Item Value Reference Range Interpretation Comments PROTIME (BEAKER) (test code = 18.7 seconds 11.9-14.2 H 759) INR (BEAKER) (test code = 370) 1.61 <=5.90 RECOMMENDED COUMADIN/WARFARIN INR THERAPY RANGESSTANDARD DOSE: 2.0 - 3.0 Includes: PROPHYLAXIS for venous thrombosis, systemic embolization; TREATMENT for venous thrombosis and/or pulmonary embolus.HIGH RISK: Target INR is 2.5-3.5 for patients with mechanical heart valves.HEMOGLOBIN AND [id number] 12:24:20 Test Item Value Reference Range Interpretation Comments HEMOGLOBIN (BEAKER) (test code = 7.4 GM/DL 11.2-15.7 L 410) HEMATOCRIT (BEAKER) (test code = 23.7 % 34.1-44.9 L 411) Flake Drier ID - 6000POC-Glucose snyke6349-70-31 05:40:23 Test Item Value Reference Range Interpretation Comments POC-Glucose Meter (test 78 mg/dL 70-110 : TE STED AT [facility] code = 1538) [address] [place] [address], 770 30: Flake Drier/Techni valarie ID = [id number] for Yumi, James Lab Interpretation (test Normal code = 35353-9) [facility] [id number] 05:40:23 Test Item Value Reference Range Interpretation Comments POC-Glucose Meter (test 78 mg/dL 70-110 : TE STED AT [facility] code = 1538) [address] [place] [address], 770 30: Flake Drier/Techni valarie ID = [id number] for Yumi, James Lab Interpretation (test Normal code = 31082-3) [facility]-Glucose [id number] 05:40:23 Test Item Value Reference Range Interpretation Comments POC-Glucose Meter (test 78 mg/dL 70-110 : TE STED AT [facility] code = 1538) [address] [place] [address], 770 30: Flake Drier/Techni valarie ID = [id number] for Yumi, James Lab Interpretation (test Normal code = 84392-1) [facility] [id number] 05:40:23 Test Item Value Reference Range Interpretation Comments POC-Glucose Meter (test 78 mg/dL 70-110 : TE STED AT [facility] code = 1538) [address] [place] [address], 770 30: Flake Drier/Techni valarie ID = [id number] for Yumi, James Lab Interpretation (test Normal code = 86206-0) [facility] [id number] 05:40:23 Test Item Value Reference Range Interpretation Comments POC-Glucose Meter (test 78 mg/dL 70-110 : TE STED AT [facility] code = 1538) [address] [facility], [address]: Flake Drier/Techni valarie ID = [id number] for YumiJames chirinos Lab Interpretation (test Normal code = 65641-9) [facility]-Glucose [id number] 05:40:23 Test Item Value Reference Range Interpretation Comments POC-Glucose Meter (test 78 mg/dL 70-110 : TE STED AT [facility] code = 1538) [address] [place] [address], [address]: Flake Drier/Techni valarie ID = [id number] for YumiJames Lab Interpretation (test Normal code = 61228-3) [facility]-Glucose [id number] 05:40:23 Test Item Value Reference Range Interpretation Comments POC-Glucose Meter (test 78 mg/dL 70-110 : TE STED AT [facility] code = 1538) [address] [place] [address], [address]: Flake Drier/Techni valarie ID = [id number] for YumiJames chirinos Lab Interpretation (test Normal code = 66827-3) [facility]-Glucose [id number] 05:40:23 Test Item Value Reference Range Interpretation Comments POC-Glucose Meter (test 78 mg/dL 70-110 : TE STED AT [facility] code = 1538) [address] [place] [address], [address]70 30: Flake Drier/Techni valarie ID = [id number] for James Eason Lab Interpretation (test Normal code = 18408-7) [facility]-GLUCOSE [id number] 05:40:23 Test Item Value Reference Range Interpretation Comments POC-GLUCOSE METER 78 mg/dL 70-110 : TESTED A T [facility] 6720 (BEAKER) (test code = JOSELITO Franco [facility], 1538) [address]: Flake Drier/Techni valarie ID = [id number] for Dilo James cuevas [id number] 04:23:09 Test Item Value Reference Range Interpretation Comments MAGNESIUM (BEAKER) (test code = 2.1 mg/dL 1.6-2.6 627) Flake Drier ID - PIAYA [id number] 04:23:09 Test Item Value Reference Range Interpretation Comments PHOSPHORUS (BEAKER) (test code = 1.9 mg/dL 2.3-4.7 L 604) Flake Drier ID - PIDYLAN LBASIC METABOLIC [id number] 04:23:08 Test Item Value Reference Range Interpretation [...] not appl icable for dialysis patien ts Flake Drier ID - PIAYA LPROTHROMBIN [id number] 04:07:24 Test Item Value Reference Range Interpretation [...] mechanical heart valves.CBC W/PLT COUNT & AUTO [id number] 04:00:27 Test Item Value Reference Range Interpretation [...] PERCENT (BEAKER) (test code = 2801) POCT-GLUCOSE [id number] 23:14:02 Test Item Value Reference Range Interpretation Comments POC-GLUCOSE METER 86 mg/dL 70-110 : TESTED A T [facility] 6720 (BEAKER) (test code = [place], 1538) [address]: Flake Drier/Techni valarie ID = [id number] for Robles Hanson BUN AND CREATININE [id number] 21:02:50 Test Item Value Reference Range Interpretation Comments BLOOD UREA 10 mg/dL 7-21 NITROGEN (BEAKER) (test code = 354) CREATININE 0.79 mg/dL 0.57-1.25 (BEAKER) (test code = 358) BUN/CREAT RATIO 13 For a normal individual on (BEAKER) (test a normal diet , the code = reference [place] for the [id number]) mass ratio rang es between 12:1 and [...] not appl icable for dialysis patien ts Flake Drier ID - [id number] 21:02:49 Test Item Value Reference Range Interpretation Comments MAGNESIUM (BEAKER) (test code = 2.1 mg/dL 1.6-2.6 627) Flake Drier ID - [id number] 21:02:49 Test Item Value Reference Range Interpretation Comments POTASSIUM (BEAKER) (test code = 3.7 meq/L 3.5-5.1 379) Flake Drier ID - BSHEMOGLOBIN AND [id number] 20:18:40 Test Item Value Reference Range Interpretation Comments HEMOGLOBIN (BEAKER) (test code = 7.5 GM/DL 11.2-15.7 L 410) HEMATOCRIT (BEAKER) (test code = 23.4 % 34.1-44.9 L 411) Flake Drier ID - [id number], CTA [id number] 19:41:00Unlisted Reason for Exam - Click Yes and Enter Reason Below->YesUnlisted Reason for Exam->Looking for mesenteric ischemia. [facility] : 1955 Sex: FFINAL REPORT [...] them to the physician. Signed: Ayden Goff [facility] Verified Date/Time: 05/18/2022 19:41:16 POCT-GLUCOSE [id number] 19:08:28 Test Item Value Reference Range Interpretation Comments POC-GLUCOSE METER 91 mg/dL 70-110 : TESTED A T [facility] 6720 (BEPOLLY) (test code = [place], 1538) [address]: Flake Drier/Techni valarie ID = [id number] for Sarahl Scarlet nunes HIGH SENSITIVITY TROPONIN [id number] 16:22:26 Test Item Value Reference Range Interpretation Comments HIGH SENSITIVITY TROPONIN I (test 9 pg/ml <=17 code = 5103862) Flake Drier ID - BSThe HEALTH INFORMATION CLERK STAT High Sensitivity Troponin-I results should be used in conjunctionwith other diagnostic information such as ECG, clinical observations and information, and patient symptoms to aid in the diagnosis of [place].Urinalysis w/Microscopic + Reflex to [id number] 16:12:56 Test Item Value Reference Range Interpretation Comments Color, UA (test code Yellow = 5778-6) Clarity, UA (test Hazy code = 5767-9) Specific [place], UA 1.045 1.001-1.035 H (test code = 5811-5) pH, UA (test code = 6.5 5.0-8.0 5803-2) Protein, UA (test 20 mg/dL Negative A code = 32559-5) Glucose, UA (test Negative Negative code = 365) Ketones, UA (test Negative Negative code = 2514-8) Bilirubin, UA (test Negative Negative code = 94755-2) Blood, UA (test code Moderate Negative A = 25272-6) Nitrite, UA (test Negative Negative code = 5802-4) Leukocytes, UA (test Large Negative A code = 5799-2) Urobilinogen, UA 0.2 0.2-1.0 (test code = 40442-9) RBC, UA (test code = 34 See_Comment [Autom ated 73861-4) message] The system which generated this result [...] . Bacteria, UA (test Few code = 59347-6) Squam Epithel, UA <1 See_Comment [Automate d (test code = 98881-4) messag e] The system which generated this result transmit bandar reference range : /HPF. The reference range was not used to interpret this result as normal/abnormal . Specimen Source (test code = 2795) ROBERT (test code = ROBERT) Flake Drier ID - [auto]Flake Drier ID - tech Lab Interpretation Abnormal (test code = 95543-5) [facility] Culture 2022-05-18 16:12:56 Test Item Value Reference Range Interpretation Comments Color, UA (test code Yellow = 5778-6) Clarity, UA (test Hazy code = 5767-9) Specific [place], UA 1.045 1.001-1.035 H (test code = 5811-5) pH, UA (test code = 6.5 5.0-8.0 5803-2) Protein, UA (test 20 mg/dL Negative A code = 84772-3) Glucose, UA (test Negative Negative code = 365) Ketones, UA (test Negative Negative code = 2514-8) Bilirubin, UA (test Negative Negative code = 31570-4) Blood, UA (test code Moderate Negative A = 31467-0) Nitrite, UA (test Negative Negative code = 5802-4) Leukocytes, UA (test Large Negative A code = 5799-2) Urobilinogen, UA 0.2 0.2-1.0 (test code = 40841-9) RBC, UA (test code = 34 See_Comment [Autom ated 99459-2) message] The system which generated this result [...] . Bacteria, UA (test Few code = 79374-8) Squam Epithel, UA <1 See_Comment [Automate d (test code = 37709-4) messag e] The system which generated this result transmit bandar reference range : /HPF. The reference range was not used to interpret this result as normal/abnormal . Specimen Source (test code = 2795) ROBERT (test code = ROBERT) Flake Drier ID - [auto]Flake Drier ID - tech Lab Interpretation Abnormal (test code = 40866-0) [facility] Reflex to Culture 2022-05-18 16:12:56 Test Item Value Reference Range Interpretation Comments Color, UA (test code Yellow = 5778-6) Clarity, UA (test Hazy code = 5767-9) Specific [place], UA 1.045 1.001-1.035 H (test code = 5811-5) pH, UA (test code = 6.5 5.0-8.0 5803-2) Protein, UA (test 20 mg/dL Negative A code = 37324-2) Glucose, UA (test Negative Negative code = 365) Ketones, UA (test Negative Negative code = 2514-8) Bilirubin, UA (test Negative Negative code = 55357-2) Blood, UA (test code Moderate Negative A = 78948-5) Nitrite, UA (test Negative Negative code = 5802-4) Leukocytes, UA (test Large Negative A code = 5799-2) Urobilinogen, UA 0.2 0.2-1.0 (test code = 60873-4) RBC, UA (test code = 34 See_Comment [Autom ated 01561-3) message] The system which generated this result [...] . Bacteria, UA (test Few code = 05187-5) Squam Epithel, UA <1 See_Comment [Automate d (test code = 89859-2) messag e] The system which generated this result transmit bandar reference range : /HPF. The reference range was not used to interpret this result as normal/abnormal . Specimen Source (test code = 2795) ROBERT (test code = ROBERT) Flake Drier ID - [auto]Flake Drier ID - tech Lab Interpretation Abnormal (test code = 59083-1) [facility] + Reflex to Culture 2022-05-18 16:12:56 Test Item Value Reference Range Interpretation Comments Color, UA (test code Yellow = 5778-6) Clarity, UA (test Hazy code = 5767-9) Specific [place], UA 1.045 1.001-1.035 H (test code = 5811-5) pH, UA (test code = 6.5 5.0-8.0 5803-2) Protein, UA (test 20 mg/dL Negative A code = 37166-5) Glucose, UA (test Negative Negative code = 365) Ketones, UA (test Negative Negative code = 2514-8) Bilirubin, UA (test Negative Negative code = 86862-7) Blood, UA (test code Moderate Negative A = 36365-2) Nitrite, UA (test Negative Negative code = 5802-4) Leukocytes, UA (test Large Negative A code = 5799-2) Urobilinogen, UA 0.2 0.2-1.0 (test code = 16278-1) RBC, UA (test code = 34 See_Comment [Autom ated 85051-5) message] The system which generated this result [...] . Bacteria, UA (test Few code = 37212-9) Squam Epithel, UA <1 See_Comment [Automate d (test code = 67678-4) messag e] The system which generated this result transmit bandar reference range : /HPF. The reference range was not used to interpret this result as normal/abnormal . Specimen Source (test code = 2795) ROBERT (test code = ROBERT) Flake Drier ID - [auto]Flake Drier ID - tech Lab Interpretation Abnormal (test code = 54459-0) [facility] + Reflex to Culture 2022-05-18 16:12:56 Test Item Value Reference Range Interpretation Comments Color, UA (test code Yellow = 5778-6) Clarity, UA (test Hazy code = 5767-9) Specific [place], UA 1.045 1.001-1.035 H (test code = 5811-5) pH, UA (test code = 6.5 5.0-8.0 5803-2) Protein, UA (test 20 mg/dL Negative A code = 92293-4) Glucose, UA (test Negative Negative code = 365) Ketones, UA (test Negative Negative code = 2514-8) Bilirubin, UA (test Negative Negative code = 39451-9) Blood, UA (test code Moderate Negative A = 69593-2) Nitrite, UA (test Negative Negative code = 5802-4) Leukocytes, UA (test Large Negative A code = 5799-2) Urobilinogen, UA 0.2 0.2-1.0 (test code = 46206-8) RBC, UA (test code = 34 See_Comment [Autom ated 39335-1) message] The system which generated this result [...] . Bacteria, UA (test Few code = 50046-8) Squam Epithel, UA <1 See_Comment [Automate d (test code = 77773-8) messag e] The system which generated this result transmit bandar reference range : /HPF. The reference range was not used to interpret this result as normal/abnormal . Specimen Source (test code = 2795) ROBERT (test code = ROBERT) Flake Drier ID - [auto]Flake Drier ID - tech Lab Interpretation Abnormal (test code = 42305-3) [facility] + Reflex to Culture 2022-05-18 16:12:56 Test Item Value Reference Range Interpretation Comments Color, UA (test code Yellow = 5778-6) Clarity, UA (test Hazy code = 5767-9) Specific [place], UA 1.045 1.001-1.035 H (test code = 5811-5) pH, UA (test code = 6.5 5.0-8.0 5803-2) Protein, UA (test 20 mg/dL Negative A code = 26054-5) Glucose, UA (test Negative Negative code = 365) Ketones, UA (test Negative Negative code = 2514-8) Bilirubin, UA (test Negative Negative code = 21916-8) Blood, UA (test code Moderate Negative A = 68467-9) Nitrite, UA (test Negative Negative code = 5802-4) Leukocytes, UA (test Large Negative A code = 5799-2) Urobilinogen, UA 0.2 0.2-1.0 (test code = 52718-1) RBC, UA (test code = 34 See_Comment [Autom ated 66186-7) message] The system which generated this result [...] . Bacteria, UA (test Few code = 14352-4) Squam Epithel, UA See_Comment [Automate d (test code = 14528-4) messag e] The system which generated this result transmit bandar reference range : /HPF. The reference range was not used to interpret this result as normal/abnormal . Specimen Source (test code = 2795) ROBERT (test code = ROBERT) Flake Drier ID - [auto]Flake Drier ID - tech Lab Interpretation Abnormal (test code = 62875-3) [facility] + Reflex to Culture 2022-05-18 16:12:56 Test Item Value Reference Range Interpretation Comments Color, UA (test code Yellow = 5778-6) Clarity, UA (test Hazy code = 5767-9) Specific [place], UA 1.045 1.001-1.035 H (test code = 5811-5) pH, UA (test code = 6.5 5.0-8.0 5803-2) Protein, UA (test 20 mg/dL Negative A code = 77009-8) Glucose, UA (test Negative Negative code = 365) Ketones, UA (test Negative Negative code = 2514-8) Bilirubin, UA (test Negative Negative code = 37776-7) Blood, UA (test code Moderate Negative A = 12241-0) Nitrite, UA (test Negative Negative code = 5802-4) Leukocytes, UA (test Large Negative A code = 5799-2) Urobilinogen, UA 0.2 0.2-1.0 (test code = 41700-0) RBC, UA (test code = 34 See_Comment [Autom ated 46144-6) message] The system which generated this result [...] . Bacteria, UA (test Few code = 96090-1) Squam Epithel, UA See_Comment [Automate d (test code = 10196-8) messag e] The system which generated this result transmit bandar reference range : /HPF. The reference range was not used to interpret this result as normal/abnormal . Specimen Source (test code = 2795) ROBERT (test code = ROBERT) Flake Drier ID - [auto]Flake Drier ID - tech Lab Interpretation Abnormal (test code = 88330-7) [facility] + Reflex to Culture 2022-05-18 16:12:56 Test Item Value Reference Range Interpretation Comments Color, UA (test code Yellow = 5778-6) Clarity, UA (test Hazy code = 5767-9) Specific [place], UA 1.045 1.001-1.035 H (test code = 5811-5) pH, UA (test code = 6.5 5.0-8.0 5803-2) Protein, UA (test 20 mg/dL Negative A code = 91328-6) Glucose, UA (test Negative Negative code = 365) Ketones, UA (test Negative Negative code = 2514-8) Bilirubin, UA (test Negative Negative code = 82761-7) Blood, UA (test code Moderate Negative A = 98217-2) Nitrite, UA (test Negative Negative code = 5802-4) Leukocytes, UA (test Large Negative A code = 5799-2) Urobilinogen, UA 0.2 0.2-1.0 (test code = 77799-6) RBC, UA (test code = 34 See_Comment [Autom ated 55893-7) message] The system which generated this result [...] . Bacteria, UA (test Few code = 82838-1) Squam Epithel, UA See_Comment [Automate d (test code = 12462-2) messag e] The system which generated this result transmit bandar reference range : /HPF. The reference range was not used to interpret this result as normal/abnormal . Specimen Source (test code = 2795) ROBERT (test code = ROBERT) Flake Drier ID - [auto]Flake Drier ID - tech Lab Interpretation Abnormal (test code = 98983-1) [facility] UR[facility] [id number] 16:12:56 Test Item Value Reference Range Interpretation [...] = 516) SOURCE(BEAKER) (test code = 2795) Flake Drier ID - [auto]Flake Drier ID - techPROTHROMBIN [id number] 16:02:01 Test Item Value Reference Range Interpretation Comments PROTIME (BEAKER) (test code = 25.8 seconds 11.9-14.2 H 759) INR (BEAKER) (test code = 370) 2.54 <=5.90 RECOMMENDED COUMADIN/WARFARIN INR THERAPY RANGESSTANDARD DOSE: 2.0 - 3.0 Includes: PROPHYLAXIS for venous thrombosis, systemic embolization; TREATMENT for venous thrombosis and/or pulmonary embolus.HIGH RISK: Target INR is 2.5-3.5 for patients with mechanical heart valves.CALCIUM, [id number] 13:31:38 Test Item Value Reference Range Interpretation [...] 0-0 (BEAKER) (test code = 413) POCT-GLUCOSE [id number] 13:07:25 Test Item Value Reference Range Interpretation Comments POC-GLUCOSE METER 81 mg/dL 70-110 : TESTED A T [facility] 6720 (BEAKER) (test code = [place], 1538) [address]: Flake Drier/Techni valarie ID = [id number] Scarlet Avina B-TYPE NATRIURETIC FACTOR (BNP)2022-05-18 11:38:06 Test Item Value Reference Range Interpretation Comments B-TYPE NATRIURETIC PEPTIDE (BEAKER) 97 pg/mL 0-100 (test code = 700) Flake Drier ID - FANTASMA [id number] 11:34:39 Test Item Value Reference Range Interpretation Comments FIBRINOGEN LEVEL (BEAKER) (test 440 mg/dl 225-434 H code = 658) [id number] 11:32:28 Test Item Value Reference Range Interpretation Comments LIPASE (BEAKER) (test code = 749) 13 U/L 8-78 Flake Drier ID - FANTASMA BCOMPREHENSIVE METABOLIC [id number] 11:32:27 Test Item Value Reference Range Interpretation [...] not appl icable for dialysis patien ts Flake Drier ID - FANTASMA [id number] 11:32:27 Test Item Value Reference Range Interpretation Comments MAGNESIUM (BEAKER) (test code = 1.7 mg/dL 1.6-2.6 627) Flake Drier ID - FANTASMA [id number] 11:32:27 Test Item Value Reference Range Interpretation Comments PHOSPHORUS (BEAKER) (test code = 2.9 mg/dL 2.3-4.7 604) Flake Drier ID - FANTASMA [id number] 11:21:21 Test Item Value Reference Range Interpretation [...] for patients with mechanical heart valves.LACTIC ACID, [id number] 11:20:59 Test Item Value Reference Range Interpretation Comments LACTATE BLOOD VENOUS (2) (BEAKER) 1.40 mmol/L 0.50-2.20 (test code = 2872) Flake Drier ID - FANTASMA Butler"
[2022-08-24 01:02] LABS: Protime INR 3.29
[2022-08-24 01:03] LABS: Hematocrit 28.7 % (36.0-45.0); Lymphocytes % 19.1 % (15.3-44.8); MCV 92.3 fL (80-100); MPV 8.6 fL (7.6-11.3); RBC Red Blood Cell Count 3.11 M/uL (3.86-4.86)
[2022-08-24] MEDS ORDERED: NA CHLORIDE 0.9% 500 ML ONE (01:06)
[2022-08-24 01:46] LABS: Potassium 3.9 mEq/L (3.5-5.1)
--- NOTE | 2022-08-24 01:52 | ER ---
Nurse's Notes [facility] Name: Michelle Saavedra Age: 67 yrs Sex: Female : 1955 Arrival Date: 08/23/2022 Time: 23:17 Bed 13 Private MD: Diagnosis: Palpitations;Chronic pain, not elsewhere classified Presentation: 08/23 23:52 Chief complaint: Patient states: "My heart started racing then my chest started vc1 hurting.". Coronavirus screen: Client denies travel out of the [place] in the last 14 days. At this time, the client does not indicate any symptoms associated with coronavirus-19. Ebola Screen: Patient negative for fever greater than or equal to 101.5 degrees Fahrenheit, and additional compatible Ebola Virus Disease symptoms Patient denies exposure to infectious person. Patient denies travel to an Ebola-affected area in the 21 days before illness onset. No symptoms or risks identified at this time. Initial Sepsis Screen: Does the patient meet any 2 criteria? Systolic BP < 90 mmHg. No. Patient's initial sepsis screen is negative. Does the patient have a suspected source of infection? No. Patient's initial sepsis screen is negative. Risk Assessment: Do you want to hurt yourself or someone else? Patient reports no desire to harm self or others. Onset of symptoms was August 23, 2022 at 21:00. 23:52 Method Of Arrival: Ambulatory vc1 23:52 Acuity: JAKUB 3 vc1 Triage Assessment: 23:57 General: Appears in no apparent distress. comfortable, Behavior is cooperative, vc1 appropriate for age. Pain: Complains of pain in anterior aspect of right lateral abdomen and right leg Pain does not radiate. Pain currently is 9 out of 10 on a pain scale. EENT: No deficits noted. No signs and/or symptoms were reported regarding the EENT system. Neuro: Level of Consciousness is awake, alert, obeys commands, Oriented to person, place, time, situation, Appropriate for age. Cardiovascular: Chest pain is described as severe. Respiratory: Airway is patent Respiratory effort is even, unlabored, Respiratory pattern is regular, symmetrical. GI: No deficits noted. No signs and/or symptoms were reported involving the gastrointestinal system. : No deficits noted. No signs and/or symptoms were reported regarding the genitourinary system. Derm: No deficits noted. No signs and/or symptoms reported regarding the dermatologic system. Musculoskeletal: No deficits noted. No signs and/or symptoms reported regarding the musculoskeletal system. Historical: - Allergies: 23:56 Morphine; vc1 - Home Meds: 23:56 Coumadin 1 mg Oral tab 1 tab once daily [Active]; Metoprolol Tartrate Oral [Active]; vc1 - PMHx: 23:56 Atrial fibrillation; Hypercholesterolemia; mechanical valve; vc1 - PSHx: 23:56 None; vc1 - Immunization history:: Client reports having NOT received the Covid vaccine. - Social history:: Smoking status: Patient denies any tobacco usage or history of. - Family history:: not pertinent. - Hospitalizations: : The patient was recently seen at [facility]. Screenin:57 Abuse screen: Denies threats or abuse. Nutritional screening: No deficits noted. vc1 Tuberculosis screening: No symptoms or risk factors identified. 08/24 01:51 [facility] ED Fall Risk Assessment (Adult) History of falling in the last 3 months, kd3 including since admission No falls in past 3 months (0 pts) Confusion or Disorientation No (0 pts) Intoxicated or Sedated No (0 pts) Impaired Gait No (0 pts) Mobility Assist Device Used No (0 pt) Altered Elimination No (0 pt) Score/Fall Risk Level 0 - 2 = Low Risk Maintained a safe environment. Assessment: 01:18 General: Pt states that she is in pain but does not localize the pain. Pt demanded this kd3 RN tell the MD that thee only two things that work for her are Dilaudid and fentanyl. notified. ordered [place]. Pt refused [place] and stated that "If he wont give me medicine that works I am going to leave. I can be in pain at home." notified. . Vital Signs: 08/23 23:52 BP 82 / 70; Pulse 50; Resp 15; Temp 97.4; Pulse Ox 100% ; Weight 45.36 kg; Height 5 ft. vc1 3 in. ; Pain 12/23; 08/24 01:05 BP 159 / 52; Pulse 68; Resp 19; Pulse Ox 100% ; kd3 01:50 BP 139 / 52; Pulse 94; Resp 19; Pulse Ox 100% ; kd3 05/11 23:52 Body Mass Index 17.71 (45.36 kg, 160.02 cm) vc1 08/23 23:52 Pain Scale: Adult vc1 ED Course: 08/23 23:21 Patient arrived in ED. ja2 23:23 Ean Dumont MD is Attending Physician. rn 23:56 Triage completed. vc1 23:57 Arm band placed on left wrist. vc1 08/24 00:19 XRAY Chest (1 view) In Process Unspecified. EDMS 00:30 Missed attempt(s): 20 gauge in left antecubital area. bc6 00:58 Basic Metabolic Panel Sent. bc6 00:58 CBC with Diff Sent. bc6 00:58 NT PRO-BNP Sent. bc6 00:58 PT-INR Sent. bc6 00:58 Troponin HS Sent. bc6 00:58 Inserted saline lock: 22 gauge in right antecubital area, using aseptic technique. bc6 01:01 Radha Solorzano, RN is Primary Nurse. kd3 01:51 Patient has correct armband on for positive identification. kd3 01:51 No provider procedures requiring assistance completed. kd3 02:05 IV discontinued, intact, bleeding controlled, No redness/swelling at site. Pressure kd3 dressing applied. Administered Medications: 01:04 Drug: NS 0.9% IV 500 ml Route: IV; Rate: bolus; Site: right antecubital; kd3 02:06 Follow up: IV Status: Completed infusion kd3 02:04 Not Given (Patient Refused): HYDROcodone-acetaminophen PO 5 mg-325 mg 1 tabs PO once kd3 Medication: 01:51 VIS not applicable for this client. kd3 Outcome: 01:52 Discharge ordered by . rn 02:04 Discharged to home ambulatory. kd3 02:04 Condition: stable 02:04 Discharge instructions given to patient, Instructed on discharge instructions, follow up and referral plans. Demonstrated understanding of instructions, follow-up care. 02:06 Patient left the ED. kd3 Signatures: Dispatcher [employer] EDMN Ean Dumont MD MD rn Alexander, Jessica ja2 Radha Solorzano RN RN kd3 Alena Camilo RN RN vc1 Brandy Berrios bc6
--- NOTE | 2022-08-24 01:52 | EDPHYS ---
Physician Documentation [facility] Name: Michelle Saavedra Age: 67 yrs Sex: Female : 1955 Arrival Date: 08/23/2022 Time: 23:17 Bed 13 Private MD: ED Physician Ean Dumont HPI: 08/23 23:57 This 67 yrs old Female presents to ER via Ambulatory with complaints of rn Palpitations, chest pain. 23:57 The patient presents with a history of heart racing. Context: The symptoms occur at rn rest. Onset: The symptoms/episode began/occurred just prior to arrival. Duration: The patient or guardian reports a single episode, that is now resolved. Modifying factors: The symptoms are aggravated by nothing. The symptoms are alleviated by nothing. Associated signs and symptoms: Pertinent positives: anxiety, chest pain, Pertinent negatives: fever, SOB, syncope, vertigo, vomiting. Severity of symptoms: At their worst the symptoms were moderate in the emergency department the symptoms have improved. The patient has experienced similar episodes in the past. The patient has not recently seen a physician. Historical: - Allergies: 23:56 Morphine; vc1 - Home Meds: 23:56 Coumadin 1 mg Oral tab 1 tab once daily [Active]; Metoprolol Tartrate Oral [Active]; vc1 - PMHx: 23:56 Atrial fibrillation; Hypercholesterolemia; mechanical valve; vc1 - PSHx: 23:56 None; vc1 - Immunization history:: Client reports having NOT received the Covid vaccine. - Social history:: Smoking status: Patient denies any tobacco usage or history of. - Family history:: not pertinent. - Hospitalizations: : The patient was recently seen at [facility]. ROS: 23:57 Constitutional: Negative for fever, chills, and weight loss, Cardiovascular: Negative rn for edema Respiratory: Negative for shortness of breath, cough, wheezing, and pleuritic chest pain Abdomen/GI: Negative for abdominal pain, nausea, vomiting, diarrhea, and constipation, Back: Negative for injury and pain, MS/Extremity: Negative for injury and deformity, Skin: Negative for injury, rash, and discoloration, Neuro: Negative for headache, numbness, tingling, and seizure. Exam: 23:57 Constitutional: Thin female, disheveled, no acute distress Head/Face: Normocephalic, rn atraumatic. ENT: dry MM Cardiovascular: Bradycardic, regular. No pulse deficits. Respiratory: No increased work of breathing, no retractions or nasal flaring. Abdomen/GI: Soft, non-tender Skin: Warm, dry MS/ Extremity: Pulses equal, no cyanosis Neuro: Awake and alert, GCS 15, oriented to person, place, time, and situation. Cranial nerves II-XII grossly intact. Motor strength 5/5 in all extremities. Sensory grossly intact. Cerebellar exam normal. Normal gait. 08/24 01:39 ECG was reviewed by the Attending Physician. rn Vital Signs: 08/23 23:52 BP 82 / 70; Pulse 50; Resp 15; Temp 97.4; Pulse Ox 100% ; Weight 45.36 kg; Height 5 ft. vc1 3 in. ; Pain 9/10; 08/24 01:05 BP 159 / 52; Pulse 68; Resp 19; Pulse Ox 100% ; kd3 01:50 BP 139 / 52; Pulse 94; Resp 19; Pulse Ox 100% ; kd3 08/23 23:52 Body Mass Index 17.71 (45.36 kg, 160.02 cm) vc1 08/23 23:52 Pain Scale: Adult vc1 MDM: 08/23 23:23 Patient medically screened. rn 08/24 01:17 ED course: Pt demanding either fentanyl or dilaudid, we told her that initial BP was rn low and it is not safe to give her such strong pain medication with the possibility of lowering her BP further. She insisted on us taking multiple BP until her BP was better. I offered her norco, she declines. Will wait of further lab results as her palpitations have resolved and BP improved. . 01:51 Differential diagnosis: arrythmia, dehydration, stress disorder. Data reviewed: vital rn signs, nurses notes, lab test result(s), EKG, radiologic studies, plain films. Independent interpretation of the following test(s) in the Emergency Department EKG: See my EKG interpretation above X-Ray: My interpretation is CXR images neg for pneumonia or pneumothorax per my interpretation. Counseling: I had a detailed discussion with the patient and/or guardian regarding: the historical points, exam findings, and any diagnostic results supporting the discharge/admit diagnosis, lab results, radiology results, the need for outpatient follow up, to return to the emergency department if symptoms worsen or persist or if there are any questions or concerns that arise at home. Special discussion: Based on the patient's history, exam, and Dx evaluation, there is no indication for emergent intervention or inpatient Tx. It is understood by the patient/guardian that if the Sx's persist or worsen they need to return immediately for re-evaluation. I discussed with the patient/guardian in detail that at this point there is no indication for admission to the hospital. It is understood, however, that if the symptoms persist or worsen the patient needs to return immediately for re-evaluation. 08/23 23:57 Order name: Basic Metabolic Panel; Complete Time: :50 08/23 23:57 Order name: CBC with Diff; Complete Time: :08/23 23:57 Order name: NT PRO-BNP; Complete Time: :08/23 23:57 Order name: PT-INR; Complete Time: :08/23 23:57 Order name: Troponin HS; Complete Time: :50 08/23 23:57 Order name: XRAY Chest (1 view) 08/23 23:57 Order name: EKG; Complete Time: 23:57 08/23 23:57 Order name: Cardiac monitoring; Complete Time: 00:04 08/23 23:57 Order name: EKG - Nurse/Tech; Complete Time: 00:37 08/23 23:57 Order name: IV Saline Lock; Complete Time: 00:58 08/23 23:57 Order name: Labs collected and sent; Complete Time: 00:58 08/23 23:57 Order name: O2 Per Protocol; Complete Time: 00:04 08/23 23:57 Order name: O2 Sat Monitoring; Complete Time: 00:04 rn EC:39 Rate is 54 beats/min. Rhythm is regular. QRS Jarrell is Normal. FL interval is prolonged rn at 216 msec. QRS interval is normal. QT interval is normal. No Q waves. T waves are Normal. No ST changes noted. Clinical impression: Sinus bradycardia. Interpreted by me. Reviewed by me. Administered Medications: 01:04 Drug: NS 0.9% IV 500 ml Route: IV; Rate: bolus; Site: right antecubital; kd3 02:06 Follow up: IV Status: Completed infusion kd3 02:04 Not Given (Patient Refused): HYDROcodone-acetaminophen PO 5 mg-325 mg 1 tabs PO once kd3 Disposition Summary: 08/24/22 01:52 Discharge Ordered Location: Home rn Problem: new rn Symptoms: have improved rn Condition: Stable rn Diagnosis - Palpitations rn - Chronic pain, not elsewhere classified rn Followup: rn - With: Private Physician - When: As needed - Reason: Recheck today's complaints, Re-evaluation by your physician Discharge Instructions: - Discharge Summary Sheet rn - Chronic Pain, Adult rn - Palpitations rn Forms: - Medication Reconciliation Form rn - Thank You Letter rn - Antibiotic international student counselor - Prescription Opioid Use rn Signatures: Dispatcher [employer] EDMS Ean Dumont MD MD rn Doucette, Kyli, RN RN kd3 Alena Camilo, RN RN vc1
[2022-08-24 02:32] VITALS: TEMP 97.4; O2SAT 100
[2022-08-24 02:35] VITALS: BP 139/52
--- NOTE | 2022-08-24 05:33 | EKG ---
Test Date: 2022-08-24 Test Time: 00:08:37 [employer]: JOHN MEASUREMENT RESULTS: Intervals: Rate: 54 MS: 216 QRSD: 92 QT: 466 QTc: 441 Nicholson: P: 104 MS: 216 QRS: 78 T: 86 INTERPRETIVE STATEMENTS: Sinus bradycardia with marked sinus arrhythmia with 1st degree AV block Nonspecific ST abnormality Abnormal ECG Compared to ECG 08/20/2022 23:27:24 First degree AV block now present Atrial fibrillation no longer present Left bundle-branch block no longer present Prolonged QT interval no longer present ST (T wave) deviation still present Electronically Signed On 08-24-22 05:32:45 CDT by Soren Carter
--- NOTE | 2022-08-28 09:16 | RAD REPORT ---
EXAM DESCRIPTION: RAD - Chest Single View - 08/24/2022 12:17 am COMPARISON: Chest radiograph August 21, 2022 CLINICAL HISTORY: [facility] MAIN PALPITATIONS FINDINGS: A single AP view of the chest demonstrates a normal cardiomediastinal silhouette. Aortic a therosclerosis is present. No pneumothorax or pleural effusion. No consolidation or pulmonary edema. Osseous structures are intact. IMPRESSION: 1. No acute chest process. 2. Aortic atherosclerosis. Electronically signed by: Maynor Woodson MD 08/24/2022 12:28 AM CDT Due to temporary technical issues with the PACS/Fluency reporting system, reports are being signed by the in house radiologist without review as a courtesy to ensure prompt reporting. The interpreting r adiologist is fully responsible for the content of the report.
== END 2022-08-24 02:06 | disposition home or self-care (01) ==
LOC: ER 23:17
DX: R00.2 Palpitations (principal); G89.29 Other chronic pain; I48.91 Unspecified atrial fibrillation; Z79.01 Long term (current) use of anticoagulants; Z88.5 Allergy status to narcotic agent
CPT/HCPCS: 93005; 85025; 80048; 36415; 85610; 84484; 83880; 71045; 96360; 99284; J7040

== ENCOUNTER 2022-09-08 20:10 | Observation (INO) | payer OTHER ==
--- OUTSIDE RECORDS SUMMARY | 2022-09-08 20:29 | XMS REPORT | Continuity of Care Document ---
:1955 Author Organization [facility] t Address [address] [facility] [address] [place] [address] Care Team Providers Name Role Phone Daniel Ibrahim Primary Care Physician DANIEL IBRAHIM Attending Clinician Unavailable Saurabh Dobson Attending Clinician Unavailable MARIIA CARDONA Attending Clinician Unavailable MARIIA CARDONA Attending Clinician Unavailable REBECA HOLCOMB Attending Clinician Unavailable REBECA HOLCOMB Attending Clinician Unavailable JAMAICA DAN Attending Clinician Unavailable WAYNE RABAGO Attending Clinician Unavailable Jamaica Dan MD Attending Clinician Pob, [facility] Main Attending Clinician Unavailable JOSEPH CORTES Attending Clinician Unavailable Joseph Cortes MD Attending Clinician Doctor Unassigned, [place] Attending Clinician Unavailable Isaak FISHER, Jeremy Ricardo Attending Clinician Unavailable Wayne Rabago MD Attending Clinician MEAGHAN MONTANA Attending Clinician Unavailable Santos LOVELL, Sean Granda Attending Clinician [phone] Vinayak Cook MD Attending Clinician Shadi Church MD Attending Clinician [phone] Justo Pagan MD, Franc Calles Attending Clinician Angela LOVELL, Purnima Attending Clinician Benedicto LOVELL, Benjamin Attending Clinician Rubén LOVELL, Meaghan Reilly Attending Clinician 1, [facility] Attending Clinician Unavailable Yolande Santacruz MD Attending Clinician YOLANDE SANTACRUZ Attending Clinician Unavailable Franco FISHER, Georgie Attending Clinician Unavailable Josemanuel LOVELL, Carmen Attending Clinician Ricky RODRÍGUEZ Attending Clinician Unavailable Ricky Ibarra Attending Clinician JOSE VILLA Attending Clinician Unavailable Omero WAHLPJose Attending Clinician CALEB RODRIGUES Attending Clinician Unavailable [...] Policy Number Effective Date Expiration Date Judi alfonso [facility] DUAL [id number] 2020 COMP HMO D SNP 00:00:00 [facility] [id number] 2013 PLUS 00:00:00 [employer] [id number] 2020 00:00:00 [facility] COMM STAR [id number] 2022 PLAN 00:00:00 MEDICAID [facility] [id number] 2022 00:00:00 Problems Condition Condition Condition Status Onset Resolution Last Treating Co mments Source Name Details Category Date Date Treatment Clinician Date 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 00:00: [place] with with 00 Medical preserved preserved Bran ch ejection ejection fraction fraction 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 aorta aorta 00 Medical Branch Ventricula Ventricula Disease Active U terri r r 2-22 ity of fibrillati fibrillati [place] on 00 Medical Branch Acute Acute Disease Active [facility] blood loss blood loss 2-07 [facility] anemia anemia 00:00: [facility] 00 Center Suprathera Suprathera Disease Active [facility] peutic INR peutic INR 2-07 [facility]ady kes 00:00: Medical 00 Center Fall Fall Disease Active [facility] S/P AVR S/P AVR Disease Recurre [facility] (aortic (aortic nce [facility]07 [facility] valve valve 00:00: Medical replacemen replacemen 00 Ce nter t) t) Acute Acute Disease Active [facility] upper GI upper GI 2-03 [facility] bleed bleed 00:00: Medical 00 Center GI bleed GI bleed Disease [facility] Center Atrial Atrial Disease Active Univers fibrillati fibrillati 8-11 it y of on on 00:00: [place] 00 Medical Branch E44.0 E44.0 Disease Active 2020-04 Univers Moderate Moderate 1-19 ity of protein protein 00:00: [place] calorie calorie 00 Medical malnutriti malnutriti Br anch on on Other Other Disease Active 2020-04 Univers chest pain chest pain 1-19 it y of 00:00: [place] 00 Medical Branch Chest pain Chest pain [...] 8-20 it y of emia emia 00:00: [place] 00 Medical Branch Essential Essential Disease Active Uni vers hypertensi hypertensi 8-20 it y of on on 00:00: [place] Medical Branch Anticoagul Anticoagul Disease Active U sylvesterers ated ated 8-20 ity of 00:00: [place] 00 Medical Branch Coronary Coronary Disease Active Unive rs artery artery 8-20 ity of disease disease 00:00: [place] involving involving 00 Medi tyrone cheesh-na cheesh-na Branch coronary coronary artery of artery of cheesh-na cheesh-na 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 8-20 ity of disease disease 00:00: [place] involving involving 00 Medi tyrone cheesh-na cheesh-na Branch coronary coronary artery of artery of cheesh-na cheesh-na 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 2-20 ity of disease disease 00:00: [place] involving involving 00 Medi tyrone cheesh-na cheesh-na Branch heart heart without without angina angina pectoris, pectoris, unspecifie unspecifie d vessel d vessel or lesion or lesion type type Atrial Atrial Disease Active Univers flutter flutter 4-03 ity of 00:00: [place] 00 Medical Branch Aortic Aortic Disease Active 2015-04 Univers valve valve 0-28 ity of replaced replaced 00:00: [place] [Z95.2] [Z95.2] 00 Medical Branch Chest pain Chest pain Disease Active 2016-1 U nivers with high with high 0-22 ity of risk for risk for 00:00: [place] cardiac cardiac 00 Medical etiology etiology Branch Allergies, Adverse Reactions, Alerts Allergy Allergy Status Severity Reaction(s) Onset Inactive Treating Comm ents Source Name Type Date Date Clinician MORPHINE Allergy Active [facility] Center Morphine Drug Active Pt [facility] Intolera 2-03 [facility] n[facility] 00:00: feeling Medical 00 shaky Center with morphine Morphine Propensi Active Shortness of Univers ty to Breath 1-15 ity of adverse 00:00: [place] reaction 00 Medical s to Branch drug MORPHINE DRUG Active High SOB Univers INGREDI 1-15 ity of 00:00: [place] 00 Medical Branch Family History Family Member Diagnosis Comments Start Date Stop Date Source Natural mother Diabetes [facility] Natural mother Heart [facility] Other Diabetes [facility] Natural sister Cancer [facility] Natural sister Diabetes [facility] Social History Social Habit Start Date Stop Date Quantity Comments Source History SDOH Social Unive rsity of Connections [facility] Med ical Together Branch History SDOH Social Unive rsity of Connections [facility] Branch History SDOH Social Unive rsity of Connections [place] [facility] Branch History SDOH Social Unive rsity of Connections [place] [facility] Branch Exposure to 2022-08-18 2022-08-28 Not sure University of SARS-CoV-2 (event) 00:00:00 12:47:00 [place] [facility] History SDOH 2022-06-07 2022-06-07 1 [...] Unive rsity of Connections Living 00:00:00 00:00:00 [place] [facility] History SDDC 2022-06-07 2022-06-07 0 University o f Physical Activity 00:00:00 00:00:00 [place] M edical DPW Branch History SDDC 2022-06-07 2022-06-07 0 University o f Physical Activity 00:00:00 00:00:00 [facility] edical MPS Branch History SDOH 2022-06-07 2022-06-07 5 University o f Financial 00:00:00 00:00:00 [place] [facility] History SDDC Food 2022-06-07 2022-06-07 1 Univers ity of Worry 00:00:00 00:00:00 [place] [facility] History SDDC Food 2022-06-07 2022-06-07 1 Univers ity of Scarcity 00:00:00 00:00:00 [place] [facility] History SDDC 2022-06-07 2022-06-07 2 University o f Transport Med 00:00:00 00:00:00 [place] Medic al Branch History SDDC 2022-06-07 2022-06-07 2 University o f Transport Non-Med 00:00:00 00:00:00 [facility] edical Branch Education 2022-06-06 2022-06-06 14 University of 00:00:00 00:00:00 [place] [facility] Tobacco use and 2022-06-06 2022-06-06 Smokeless Universit y of exposure 00:00:00 00:00:00 tobacco non-user [facility] dical Branch Alcohol intake 2022-05-19 2022-05-19 Ex-drinker [facility] 00:00[facility]00 00:00:00 (finding) Medical Center History [facility] 2022-05-18 2022-05-[address] [facility] Unable to 00:00:00 00:00:00 Medical Center Pay History [facility] 2022-05-18 2022-05-[address] [facility] Housing Places 00:00:00 00:00:00 Medical Ce nter Lived History [facility] 2022-05-18 2022-05-[address] [facility] Housing Homeless 00:00:00 00:00:00 Medical Center Last Year Sex Assigned At [address] [facility] Yady kes 00:00:00 00:00:00 Medical Center Smoking Status Start Date Stop Date Source Never smoked tobacco [facility] Medications Ordered Filled Start Stop Current Ordering Indication Dosage Frequency Signature Comments Components Source Medication Medication Date Date Medication? Clinician (SIG) Name Name ezetimibe 2022-0 Yes [id number] 10mg Take 1 U nivers (ZETIA) 10 4-18 tablet by ity of mg tablet [place] the Medical morning. Branch ezetimibe 3-0 Yes [id number] 10mg Take 1 U nivers (ZETIA) 10 4-18 tablet by ity of mg tablet 00:[place] the Medical morning. Branch ezetimibe 3-0 Yes [id number] 10mg Take 1 U nivers (ZETIA) 10 4-18 tablet by ity of mg tablet 00:00[place] the Medical morning. Branch ezetimibe 3-0 Yes [id number] 10mg Take 1 U nivers (ZETIA) 10 4-18 tablet by ity of mg tablet 00:00[place] the Medical morning. Branch ezetimibe 3-0 Yes [id number] 10mg Take 1 U nivers (ZETIA) 10 4-18 tablet by ity of mg tablet 00:00[place] the Medical morning. Branch ezetimibe 3-0 Yes [id number] 10mg Take 1 U nivers (ZETIA) 10 4-18 tablet by ity of mg tablet 00:00[place] the Medical morning. Branch ezetimibe 3-0 Yes [id number] 10mg Take 1 U nivers (ZETIA) 10 4-18 tablet by ity of mg tablet 00:00[place] the Medical morning. Branch ezetimibe 3-0 Yes [id number] 10mg Take 1 U nivers (ZETIA) 10 4-18 tablet by ity of mg tablet 00:00: [place] 00 the Medical morning. Branch ezetimibe 3-0 Yes [id number] 10mg Take 1 U nivers (ZETIA) 10 4-18 tablet by ity of mg tablet 00:00: [place] 00 the Medical morning. Branch ezetimibe 2022-0 Yes [id number] 10mg Take 1 U nivers (ZETIA) 10 4-18 tablet by ity of mg tablet 00:00: [place] the Medical morning. [place] ezetimibe 2022-0 Yes [id number] 10mg Take 1 U nivers (ZETIA) 10 4-18 tablet by ity of mg tablet 00:00: [place] the Medical morning. [place] ezetimibe 2022-0 Yes [id number] 10mg Take 1 U nivers (ZETIA) 10 4-18 tablet by ity of mg tablet 00:00: [place] 00 the Medical morning. [place] ezetimibe 2022-0 Yes [id number] 10mg Take 1 U nivers (ZETIA) 10 4-18 tablet by ity of mg tablet 00:00: [place] 00 the Medical morning. [place] ezetimibe 2022-0 Yes [id number] 10mg Take 1 U nivers (ZETIA) 10 4-18 tablet by ity of mg tablet 00:00: [place] 00 the Medical morning. [place] ezetimibe 2022-0 Yes [id number] 10mg Take 1 U nivers (ZETIA) 10 4-18 tablet by ity of mg tablet 00:00: [place] 00 the Medical morning. [place] ezetimibe 2022-0 Yes [id number] 10mg Take 1 U nivers (ZETIA) 10 4-18 tablet by ity of mg tablet 00:00: [place] the Medical morning. [place] alendronate 0 Yes 70mg 70 mg, Univ ers (FOSAMAX) 06-13 Oral, ity of tablet 70 06:00: QWEEKLY, [place] mg 00 First dose Medical on Sat [place] 06/13/22 at 0000, Until Discontinu ed, Routine magnesium 2022- No 400mg 400 mg, Uni vers oxide 06-12 Oral, ity of (MAG-OX 14:45: 14:19 ONCE, 1 [place] 400) tablet 00 :00 dose, On Medi tyrone 400 mg Sat [place] 06/12/22 at 0845, Routine HYDROcodone 2022-0 Yes [...] 00:00 [place] 38 :00 Medical Branch Fesoterodin 0 2022- No 1 tablet U nivers e (TOVIAZ) 06-11 ity of 4 mg tablet 16:41: 00:00 [place] 38 :00 Medical Branch Fesoterodin 0 2022- No 1 tablet [...] 35 Medical tablet Branch NaCl 0.9% Yes [id number] 250mL at 20 U nivers (NS) IV 227 mL/hr, IV ity of infusion 16:15: Infusion, [place] 250 mL 00 CONTINUOUS Medical , Starting Branch on Sat06/11/22 at 1015, Until Discontinu ed, Routine&lt ;br>KVO
lidocaine 2022- No [id number] 15mL 15 mL, Univers 2% viscous 06-11 9107 Oral, ity of (LIDOCAINE 16:15: 16:15 ONCE, 1 [place] as VISCOUS) 2 00 :00 dose, On Medic al % solution [facility] Branch 15 mL 06/11/22 at 1015, Routine FENTanyl PF 2022- No [id number] 50ug 50 mcg, Univers (SUBLIMAZE 06-11 Slow IV ity o f (PF)) 16:15: 16:15 Push, [place] injection 00 :00 ONCE, 1 Medical 50 mcg dose, On Branch [facility] 06/11/22 at 1015, Routine midazolam 2022- No [id number] 1mg 1 mg, IV Univers (VERSED) 06-1107 Push, ity of injection 1 16:15: 16:15 ONCE, 1 [place] mg 00 :00 dose, On Medical [facility] Branch 06/11/22 at 1015, Routine warfarin 1 Yes [id number] 2mg Take 2 Univers mg tablet 2-27 tablets by ity of 00:00: mouth [place] 00 every Medical evening. Branch Alternate take 1mg x3 days, then 2mg x 4 days warfarin 1 Yes [id number] 2mg Take 2 Univers mg tablet 2-27 tablets by ity of 00:00: mouth [place] 00 every Medical evening. Branch Alternate take 1mg x3 days, then 2mg x 4 days warfarin 1 2022-0 Yes [id number] 2mg Take 2 Univers mg tablet 2-27 tablets by ity of 00:00: mouth [place] 00 every Medical evening. Branch Alternate take 1mg x3 days, then 2mg x 4 days warfarin 1 2022-0 Yes [id number] 2mg Take 2 Univers mg tablet 2-27 tablets by ity of 00:00: mouth [place] 00 every Medical evening. Branch Alternate take 1mg x3 days, then 2mg x 4 days warfarin 1 2022-0 Yes [id number] 2mg Take 2 Univers mg tablet 2-27 tablets by ity of 00:00: mouth [place] 00 every Medical evening. Branch Alternate take 1mg x3 days, then 2mg x 4 days warfarin 1 2022-0 Yes [id number] 2mg Take 2 Univers mg tablet 2-27 tablets by ity of 00:00: mouth [place] 00 every Medical evening. Branch Alternate take 1mg x3 days, then 2mg x 4 days warfarin 2022-0 Yes [id number] 2mg Take 2 Univers mg tablet 2-27 tablets by ity of 00:00: mouth [place] 00 every Medical evening. Branch Alternate take 1mg x3 days, then 2mg x 4 days warfarin 2022-0 Yes [id number] 2mg Take 2 Univers mg tablet 2-27 tablets by ity of 00:00: mouth [place] 00 every Medical evening. Branch Alternate take 1mg x3 days, then 2mg x 4 days warfarin 2022-0 Yes [id number] 2mg Take 2 Univers mg tablet 2-27 tablets by ity of 00:00: mouth [place] 00 every Medical evening. Branch Alternate take 1mg x3 days, then 2mg x 4 days warfarin 1 2022-0 Yes [id number] 2mg Take 2 Univers mg tablet 2-27 tablets by ity of 00:00: mouth [place] 00 every Medical evening. Branch Alternate take 1mg x3 days, then 2mg x 4 days warfarin 1 2022-0 Yes [id number] 2mg Take 2 Univers mg tablet 2-27 tablets by ity of 00:00: mouth [place] 00 every Medical evening. Branch Alternate take 1mg x3 days, then 2mg x 4 days warfarin 1 2022-0 Yes [id number] 2mg Take 2 Univers mg tablet 2-27 tablets by ity of 00:00: mouth [place] 00 every Medical evening. Branch Alternate take 1mg x3 days, then 2mg x 4 days warfarin 1 2022-0 Yes [id number] 2mg Take 2 Univers mg tablet 2-27 tablets by ity of 00:00: mouth [place] 00 every Medical evening. Branch Alternate take 1mg x3 days, then 2mg x 4 days warfarin 1 2022-0 Yes [id number] 2mg Take 2 Univers mg tablet 2-27 tablets by ity of 00:00: mouth [place] 00 every Medical evening. Branch Alternate take 1mg x3 days, then 2mg x 4 days warfarin 1 2022-0 Yes [id number] 2mg Take 2 Univers mg tablet 2-27 tablets by ity of 00:00: mouth [place] 00 every Medical evening. Branch Alternate take 1mg x3 days, then 2mg x 4 days warfarin 1 2022-0 Yes [id number] 2mg Take 2 Univers mg tablet 2-27 tablets by ity of 00:00: mouth [place] 00 every Medical evening. Branch Alternate take 1mg x3 days, then 2mg x 4 days warfarin 1 0 Yes [id number] 2mg Take 2 Univers mg tablet 2-27 tablets by ity of 00:00: mouth [place] 00 every Medical evening. Branch Alternate take 1mg x3 days, then 2mg x 4 days warfarin 1 0 Yes [id number] 2mg Take 2 Univers mg tablet 2-27 tablets by ity of 00:00: mouth [place] 00 every Medical evening. Branch Alternate take 1mg x3 days, then 2mg x 4 days warfarin 1 2022-0 Yes [id number] 2mg Take 2 Univers mg tablet 2-27 tablets by ity of 00:00: mouth [place] 00 every Medical evening. Branch Alternate take 1mg x3 days, then 2mg x 4 days warfarin 1 2022-0 Yes [id number] 2mg Take 2 Univers mg tablet 2-27 tablets by ity of 00:00: mouth [place] 00 every Medical evening. Branch Alternate take 1mg x3 days, then 2mg x 4 days warfarin 1 2022-0 Yes [id number] 2mg Take 2 Univers mg tablet 2-27 tablets by ity of 00:00: mouth [place] 00 every Medical evening. Branch Alternate take 1mg x3 days, then 2mg x 4 days warfarin 1 2022-0 Yes [id number] 2mg Take 2 Univers mg tablet 2-27 tablets by ity of 00:00: mouth [place] 00 every Medical evening. Branch Alternate take 1mg x3 days, then 2mg x 4 days warfarin 1 2022-0 Yes [id number] 2mg Take 2 Univers mg tablet 2-27 tablets by ity of 00:00: mouth [place] 00 every Medical evening. Branch Alternate take 1mg x3 days, then 2mg x 4 days warfarin 1 2022-0 Yes [id number] 2mg Take 2 Univers mg tablet 2-27 tablets by ity of 00:00: mouth [place] 00 every Medical evening. Branch Alternate take 1mg x3 days, then 2mg x 4 days warfarin 1 2022-0 Yes [id number] 2mg Take 2 Univers mg tablet 2-27 tablets by ity of 00:00: mouth [place] 00 every Medical evening. Branch Alternate take 1mg x3 days, then 2mg x 4 days warfarin 2022-0 Yes [id number] 2mg Take 2 Univers mg tablet 2-27 tablets by ity of 00:00: mouth [place] 00 every Medical evening. Branch Alternate take 1mg x3 days, then 2mg x 4 days warfarin 2022-0 Yes [id number] 2mg Take 2 Univers mg tablet 2-27 tablets by ity of 00:00: mouth [place] 00 every Medical evening. Branch Alternate take 1mg x3 days, then 2mg x 4 days warfarin 1 2022-0 Yes [id number] 2mg Take 2 Univers mg tablet 2-27 tablets by ity of 00:00: mouth [place] 00 every Medical evening. Branch Alternate take 1mg x3 days, then 2mg x 4 days warfarin 1 2022-0 Yes [id number] 2mg Take 2 Univers mg tablet 2-27 tablets by ity of 00:00: mouth [place] 00 every Medical evening. Branch Alternate take 1mg x3 days, then 2mg x 4 days warfarin 1 2022-0 Yes [id number] 2mg Take 2 Univers mg tablet 2-27 tablets by ity of 00:00: mouth [place] 00 every Medical evening. Branch Alternate take 1mg x3 days, then 2mg x 4 days warfarin 1 2022-0 Yes [id number] 2mg Take 2 Univers mg tablet 2-27 tablets by ity of 00:00: mouth [place] 00 every Medical evening. Branch Alternate take 1mg x3 days, then 2mg x 4 days warfarin 1 Yes [id number] 2mg Take 2 Univers mg tablet 2-27 tablets by ity of 00:00: mouth [place] 00 every Medical evening. Branch Alternate take 1mg x3 days, then 2mg x 4 days warfarin 1 Yes [id number] 2mg Take 2 Univers mg tablet 2-27 tablets by ity of 00:00: mouth [place] 00 every Medical evening. Branch Alternate take 1mg x3 days, then 2mg x 4 days warfarin 1 Yes [id number] 2mg Take 2 Univers mg tablet 2-27 tablets by ity of 00:00: mouth [place] 00 every Medical evening. Branch Alternate take 1mg x3 days, then 2mg x 4 days dofetilide 2022- Yes [id number] 250ug Take 1 Univers 250 mcg 2-27 05-29 capsule by ity o f capsule 00:00: 04:59 mouth [place] 00 :00 every 12 Medical (twelve) Branch hours for 90 days. dofetilide 2022- Yes [id number] 250ug Take 1 Univers 250 mcg 2-27 05-29 capsule by ity o f capsule 00:00: 04:59 mouth [place] 00 :00 every 12 Medical (twelve) Branch hours for 90 days. dofetilide 2022- Yes [id number] 250ug Take 1 Univers 250 mcg 2-27 05-29 capsule by ity o f capsule 00:00: 04:59 mouth [place] 00 :00 every 12 Medical (twelve) Branch hours for 90 days. dofetilide 2022- Yes [id number] 250ug Take 1 Univers 250 mcg 2-27 05-29 capsule by ity o f capsule 00:00: 04:59 mouth [place] 00 :00 every 12 Medical (twelve) Branch hours for 90 days. dofetilide 2022- Yes [id number] 250ug Take 1 Univers 250 mcg 2-27 05-29 capsule by ity o f capsule 00:00: 04:59 mouth [place] 00 :00 every 12 Medical (twelve) Branch hours for 90 days. dofetilide 2022- Yes [id number] 250ug Take 1 Univers 250 mcg 2-27 05-29 capsule by ity o f capsule 00:00: 04:59 mouth [place] 00 :00 every 12 Medical (twelve) Branch hours for 90 days. dofetilide 2022- Yes [id number] 250ug Take 1 Univers 250 mcg 2-27 05-29 capsule by ity o f capsule 00:00: 04:59 mouth [place] 00 :00 every 12 Medical (twelve) Branch hours for 90 days. dofetilide 2022- Yes [id number] 250ug Take 1 Univers 250 mcg 2-27 05-29 capsule by ity o f capsule 00:00: 04:59 mouth [place] 00 :00 every 12 Medical (twelve) Branch hours for 90 days. dofetilide 2022- Yes [id number] 250ug Take 1 Univers 250 mcg 2-27 05-29 capsule by ity o f capsule 00:00: 04:59 mouth [place] 00 :00 every 12 Medical (twelve) Branch hours for 90 days. dofetilide 2022- Yes [id number] 250ug Take 1 Univers 250 mcg 2-27 05-29 capsule by ity o f capsule 00:00: 04:59 mouth [place] 00 :00 every 12 Medical (twelve) Branch hours for 90 days. dofetilide 2022- Yes [id number] 250ug Take 1 Univers 250 mcg 2-27 05-29 capsule by ity o f capsule 00:00: 04:59 mouth [place] 00 :00 every 12 Medical (twelve) Branch hours for 90 days. dofetilide 2022- Yes [id number] 250ug Take 1 Univers 250 mcg 2-27 05-29 capsule by ity o f capsule 00:00: 04:59 mouth [place] 00 :00 every 12 Medical (twelve) Branch hours for 90 days. dofetilide 2022- Yes [id number] 250ug Take 1 Univers 250 mcg 2-27 05-29 capsule by ity o f capsule 00:00: 04:59 mouth [place] 00 :00 every 12 Medical (twelve) Branch hours for 90 days. dofetilide 2022- Yes [id number] 250ug Take 1 Univers 250 mcg 2-27 05-29 capsule by ity o f capsule 00:00: 04:59 mouth [place] 00 :00 every 12 Medical (twelve) Branch hours for 90 days. dofetilide 2022- Yes [id number] 250ug Take 1 Univers 250 mcg 2-27 05-29 capsule by ity o f capsule 00:00: 04:59 mouth [place] 00 :00 every 12 Medical (twelve) Branch hours for 90 days. dofetilide 2022- Yes [id number] 250ug Take 1 Univers 250 mcg 2-27 05-29 capsule by ity o f capsule 00:00: 04:59 mouth [place] 00 :00 every 12 Medical (twelve) Branch hours for 90 days. dofetilide 2022- Yes [id number] 250ug Take 1 Univers 250 mcg 2-27 05-29 capsule by ity o f capsule 00:00: 04:59 mouth [place] 00 :00 every 12 Medical (twelve) Branch hours for 90 days. dofetilide 2022- Yes [id number] 250ug Take 1 Univers 250 mcg 2-27 05-29 capsule by ity o f capsule 00:00: 04:59 mouth [place] 00 :00 every 12 Medical (twelve) Branch hours for 90 days. dofetilide 2022- Yes [id number] 250ug Take 1 Univers 250 mcg 2-27 05-29 capsule by ity o f capsule 00:00: 04:59 mouth [place] 00 :00 every 12 Medical (twelve) Branch hours for 90 days. dofetilide 2022- Yes [id number] 250ug Take 1 Univers 250 mcg 2-27 05-29 capsule by ity o f capsule 00:00: 04:59 mouth [place] 00 :00 every 12 Medical (twelve) Branch hours for 90 days. dofetilide 2022- Yes [id number] 250ug Take 1 Univers 250 mcg 2-27 05-29 capsule by ity o f capsule 00:00: 04:59 mouth [place] 00 :00 every 12 Medical (twelve) Branch hours for 90 days. dofetilide 2022- Yes [id number] 250ug Take 1 Univers 250 mcg 2-27 05-29 capsule by ity o f capsule 00:00: 04:59 mouth [place] 00 :00 every 12 Medical (twelve) Branch hours for 90 days. dofetilide 2022- Yes [id number] 250ug Take 1 Univers 250 mcg 2-27 05-29 capsule by ity o f capsule 00:00: 04:59 mouth [place] 00 :00 every 12 Medical (twelve) Branch hours for 90 days. dofetilide 2022- Yes [id number] 250ug Take 1 Univers 250 mcg 2-27 05-29 capsule by ity o f capsule 00:00: 04:59 mouth [place] 00 :00 every 12 Medical (twelve) Branch hours for 90 days. dofetilide 2022- Yes [id number] 250ug Take 1 Univers 250 mcg 2-27 05-29 capsule by ity o f capsule 00:00: 04:59 mouth [place] 00 :00 every 12 Medical (twelve) Branch hours for 90 days. dofetilide 2022- Yes [id number] 250ug Take 1 Univers 250 mcg 2-27 05-29 capsule by ity o f capsule 00:00: 04:59 mouth [place] 00 :00 every 12 Medical (twelve) Branch hours for 90 days. dofetilide 2022- Yes [id number] 250ug Take 1 Univers 250 mcg 2-27 05-29 capsule by ity o f capsule 00:00: 04:59 mouth [place] 00 :00 every 12 Medical (twelve) Branch hours for 90 days. dofetilide 2022- Yes [id number] 250ug Take 1 [facility] 250 mcg 2-27 05-29 capsule by ity o f capsule 00:00: 04:59 mouth [place] 00 :00 every 12 Medical (twelve) Branch hours for 90 days. dofetilide 2022- Yes [id number] 250ug Take 1 [facility] 250 mcg 2-27 05-29 capsule by ity o f capsule 00:00: 04:59 mouth [place] 00 :00 every 12 Medical (twelve) Branch hours for 90 days. dofetilide 2022- Yes [id number] 250ug Take 1 [facility] 250 mcg 2-27 05-29 capsule by ity o f capsule 00:00: 04:59 mouth [place] 00 :00 every 12 Medical (twelve) Branch hours for 90 days. dofetilide 2022- Yes [id number] 250ug Take 1 [facility] 250 mcg 2-27 05-29 capsule by ity o f capsule 00:00: 04:59 mouth [place] 00 :00 every 12 Medical (twelve) Branch hours for 90 days. dofetilide 2022- Yes [id number] 250ug Take 1 [facility] 250 mcg 2-27 05-29 capsule by ity o f capsule 00:00: 04:59 mouth [place] 00 :00 every 12 Medical ([facility]) Branch hours for 90 days. dofetilide 2022- Yes [id number] 250ug Take 1 [facility] 250 mcg 2-27 05-29 capsule by ity o f capsule 00:00: 04:59 mouth [place] 00 :00 every 12 Medical ([facility]) Branch hours for 90 days. dofetilide 2022- Yes [id number] 250ug Take 1 [facility] 250 mcg 2-27 05-29 capsule by ity o f capsule 00:00: 04:59 mouth [place] 00 :00 every 12 Medical ([facility]) Branch hours for 90 days. enoxaparin 2022- Yes [id number] 40mg inject 0.4 [facility] 40 mg/0.4 2-27 03-05 mL under ity o f mL 00:00: 05:59 the skin [place] injection 00 :00 in the [facility] Branch for 5 days. enoxaparin 2022- Yes [id number] 40mg inject 0.4 [facility] 40 mg/0.4 2-27 03-05 mL under ity o f mL 00:00: 05:59 the skin [place] injection 00 :00 in the [facility] Branch for 5 days. enoxaparin 2022- Yes [id number] 40mg inject 0.4 [facility] 40 mg/0.4 2-27 03-05 mL under ity o f mL 00:00: 05:59 the skin [place] injection 00 :00 in the [facility] Branch for 5 days. enoxaparin 2022- No [id number] 40mg inject 0.4 [facility] 40 mg/0.4 2-27 03-05 mL under ity o f mL 00:00: 05:59 the skin [place] injection 00 :00 in the [facility] Branch for 5 days. enoxaparin 2022- No [id number] 40mg inject 0.4 [facility] 40 mg/0.4 2- 03-05 mL under ity o f mL 00:00: 05:59 the skin [place] injection 00 :00 in the Medical morning Branch for 5 days. enoxaparin 2022- No [id number] 40mg inject 0.4 [facility] 40 mg/0.4 - 03-05 mL under ity o f mL 00:00: 05:59 the skin [place] injection 00 :00 in the Medical morning Branch for 5 days. enoxaparin 2022- No [id number] 40mg inject 0.4 [facility] 40 mg/0.4 - 03-05 mL under ity o f mL 00:00: 05:59 the skin [place] injection 00 :00 in the [facility] morning Branch for 5 days. dofetilide 2022- Yes [id number] 250ug Take 1 [facility] 250 mcg 06-11 capsule by ity o f capsule 00:00: 05:59 mouth [place] 00 :00 every 12 [facility]) Branch hours for 2 days. warfarin 2022- Yes [id number] 2mg Take 1 [facility] mg tablet 06-11 tablet by ity of 00:00: 05:59 mouth [place] 00 :00 every Medical evening Branch for 2 days. dofetilide 2022- Yes [id number] 250ug Take 1 [facility] 250 mcg 06-11 capsule by ity o f capsule 00:00: 05:59 mouth [place] 00 :00 every 12 [facility] ([facility]) Branch hours for 2 days. warfarin 2 2022- Yes [id number] 2mg Take 1 [facility] mg tablet 06-11- tablet by ity of 00:00: 05:59 mouth [place] 00 :00 every Medical evening Branch for 2 days. warfarin 2 2022- Yes [id number] 2mg Take 1 [facility] mg tablet 06-11- tablet by ity of 00:00: 05:59 mouth [place] 00 :00 every Medical evening Branch for 2 days. warfarin 2 2022- No [id number] 2mg Take 1 [facility] mg tablet 06-11- tablet by ity of 00:00: 05:59 mouth [place] 00 :00 every Medical evening Branch for 2 days. warfarin 2 2022- No [id number] 2mg Take 1 [facility] mg tablet 06-11 tablet by ity of 00:00: 05:59 mouth [place] 00 :00 every Medical evening Branch for 2 days. warfarin 2 2022- No [id number] 2mg Take 1 [facility] mg tablet 06-11 tablet by ity of 00:00: 05:59 mouth [place] 00 :00 every Medical evening Branch for 2 days. warfarin 2 2022- No [id number] 2mg Take 1 [facility] mg tablet 06-11 tablet by ity of 00:00: 05:59 mouth [place] 00 :00 every Medical evening Branch for 2 days. enoxaparin 2022- Yes [id number] 40mg inject 0.4 [facility] 40 mg/0.4 06-11 mL under ity o f mL 00:00: 05:59 the skin [place] injection 00 :00 in the Medical morning Branch for 2 days. enoxaparin 2022- Yes [id number] 40mg inject 0.4 [facility] 40 mg/0.4 06-11 mL under ity o f mL 00:00: 05:59 the skin [place] injection 00 :00 in the Medical morning Branch for 2 days. dofetilide 2022- Yes [id number] 250ug Take 1 [facility] 250 mcg 06-11 capsule by ity o f capsule 00:00: 05:59 mouth [place] 00 :00 every 12 [facility] ([facility]) Branch hours for 2 days. enoxaparin 2022- Yes [id number] 40mg inject 0.4 [facility] 40 mg/0.4 06-11 mL under ity o f mL 00:00: 05:59 the skin [place] injection 00 :00 in the Medical morning Branch for 2 days. dofetilide 2022- No [id number] 250ug Take 1 [facility] 250 mcg 06-11 capsule by ity o f capsule 00:00: 05:59 mouth [place] 00 :00 every 12 Medical ([facility]) Branch hours for 2 days. enoxaparin 2022- No [id number] 40mg inject 0.4 [facility] 40 mg/0.4 06-11 mL under ity o f mL 00:00: 05:59 the skin [place] injection 00 :00 in the [facility] morning Branch for 2 days. dofetilide No [id number] 250ug Take 1 [facility] 250 mcg 06-11 capsule by ity o f capsule 00:00: 05:59 mouth [place] 00 :00 every 12 [facility] ([facility]) Branch hours for 2 days. enoxaparin No [id number] 40mg inject 0.4 [facility] 40 mg/0.4 06-11 mL under ity o f mL 00:00: 05:59 the skin [place] injection 00 :00 in the [facility] morning Branch for 2 days. dofetilide No [id number] 250ug Take 1 [facility] 250 mcg 06-11 capsule by ity o f capsule 00:00: 05:59 mouth [place] 00 :00 every 12 [facility] ([facility]) Branch hours for 2 days. enoxaparin No [id number] 40mg inject 0.4 [facility] 40 mg/0.4 06-11 mL under ity o f mL 00:00: 05:59 the skin [place] injection 00 :00 in the [facility] Branch for 2 days. dofetilide No [id number] 250ug Take 1 [facility] 250 mcg 06-11 capsule by ity o f capsule 00:00: 05:59 mouth [place] 00 :00 every 12 [facility] ([facility]) Branch hours for 2 days. enoxaparin No [id number] 40mg inject 0.4 [facility] 40 mg/0.4 06-11 mL under ity o f mL 00:00: 05:59 the skin [place] injection 00 :00 in the [facility] Branch for 2 days. warfarin Yes 2mg 2 mg, [facility] (COUMADIN) - Oral, ity of tablet 2 mg 23:00: DAILY AT [place] 00 1700, Medical First dose Branch (after last modificati on) on 06/10/22 at 1700, Until Discontinu ed, Routine
INR Goal Range: 2-3
IND ICATION (More than one indication for warfarin can be selected): Atrial fibrillati on/flutter magnesium 3-0 2022- No 800mg 800 mg, Uni vers oxide 06-10 Oral, ity of (MAG-OX 14:15: 14:30 ONCE, 1 [place] 400) tablet 00 :00 dose, On Medi tyrone 800 mg [facility] 06/10/22 at 0815, Routine magnesium 2022-0 2022- No 2g 2 g, IV Univ ers sulfate in 06-10 Piggyback, it y of water 2 09:45: 10:41 Administer Babak as gram/50 mL 00 :00 over 60 Medica l (4 %) Minutes, Branch infusion 2 ONCE, 1 g dose, On [place] 06/10/22 at 0345, Routine methocarbam 0 Yes 500mg 500 mg, [facility] oL 06-10 Oral, BID, ity of (ROBAXIN) 02:00: First dose [place] tablet 500 00 on [facility] mg 06/09/22 at Branch 2000, Until Discontinu ed, Routine gabapentin 2022-0 Yes 200mg 200 mg, Uni vers (NEURONTIN) 2-25 Oral, TID, it y of capsule 200 20:00: First dose [place] mg 00 on [facility] 06/09/22 at Branch 1400, Until Discontinu ed, Routine acetaminoph 2022-0 Yes 500mg 500 mg, [facility] en 2-25 Oral, TID, ity of (TYLENOL) 20:00: First dose [place] tablet 500 00 (after Medical mg last Branch modificati on) on [facility] 06/09/22 at 1400, Until Discontinu ed, Routine heparin 2022-0 2022- No 80U/kg 3,560 Univer s 1000 2-25 02-25 Units (80 ity of unit/mL 16:30: 17:49 Units/kg [place] injection 00 :00 ?44.5 kg), Medi tyrone Soln 3,560 IV Push, Branc h Units ONCE, 1 dose, On [facility] 06/09/22 at 1030, Routine heparin 2022-0 Yes [...] INITIAL INFUSION RATE.&nbsp ; _ &nb sp;FOR [place], [facility], [facility] ONLY &nbs p; - aPTT < 35: [...] , Starting [place] mL vial) 12 on [facility] 06/09/22 at Branch 1027, Until Discontinu ed, Routine
Dosing based on aPTT testing parameters (refer to continuous heparin drip order)
magnesium 2022-0 2022- No 400mg 400 mg, Uni vers oxide 06-09 Oral, ity of (MAG-OX 15:00: 15:14 ONCE, 1 [place] 400) tablet 00 :00 dose, On Medi tyrone 400 mg Sat Branch 06/09/22 at 0900, Routine FENTanyl PF 2022- Yes 25ug 25 mcg, Uni vers (SUBLIMAZE 06-08 Slow IV ity of (PF)) 17:36: Push, [place] injection 01 Q6HPRN, Medical 25 mcg Starting Branch on Sat06/08/22 at 1136, Until Discontinu ed, Routine, Pain (scale 7-10) magnesium 2022-0 2022- No 2g 2 g, IV Univ [...] 06/07/22 at 2000, Until Discontinu ed, Routine
hotel staff member approving Restricted medication : MARIIA CARDONA [...] can be selected): Atrial fibrillati on/flutter pantoprazol 2022-0 Yes 40mg 40 mg, Univ ers e 06-07 Oral, ity of (PROTONIX) 15:00: DAILY, [place] EC tablet 00 First dose Medi tyrone 40 mg on [place] Branch 06/07/22 at 0900, Until Discontinu ed, Routine ezetimibe Yes 10mg 10 mg, Univer s (ZETIA) 06-07 Oral, ity of tablet 10 15:00: DAILY, [place] mg 00 First dose Medical on [facility] Branch 06/07/22 at 0900, Until Discontinu ed, Routine furosemide 2022- No 40mg 40 mg, Univ ers (LASIX) 06-07 Oral, ity of tablet 40 15:00: 20:50 DAILY, [place] mg 00 :38 First dose Medical on [facility] Branch 06/07/22 at 0900, Until Discontinu ed, Routine aspirin 2022- No 81mg 81 mg, Univers chewable 06-07 Oral, ity of tablet 81 15:00: 15:25 DAILY, [place] mg 00 :24 First dose Medical on [facility] 06/07/22 at 0900, Until Discontinu ed, Routine HYDROcodone Yes 1{tbl} 1 tablet, Univers -acetaminop 06-07 Oral, ity of hen (NORCO) 14:58: Q6HPRN, Babak as 10-325 mg 30 Starting Medica l tablet 1 on [facility] tablet 06/07/22 at 0858, Until Discontinu ed, Routine, Pain (scale 7-10), Pain (scale 4-6) gabapentin 2022- No 300mg 300 mg, [facility] (NEURONTIN) 06-07 Oral, ity of capsule 300 07:45: 07:14 ONCE, 1 [place] mg 00 :00 dose, On [facility] Branch 06/07/22 at 0145, Routine KCL 2022- No 20meq 20 mEq, Univers (KLOR-CON 06-07 Oral, ity of M20) tablet 05:00: 06:48 ONCE, 1 [place] 20 mEq 00 :00 dose, On [facility] Branch 06/06/22 at 2315, Routine magnesium 2022- No 2g 2 g, IV Univ ers sulfate in 06-07 Piggyback, it y of water 2 05:00: 08:15 Administer Babak as gram/50 mL 00 :00 over 60 Medica l (4 %) Minutes, Branch infusion 2 ONCE, 1 g dose, On Sat06/06/22 at 2315, Routine atorvastati Yes 80mg 80 mg, Univ ers n (LIPITOR) 06-07 Oral, QHS, it y of tablet 80 03:00: First dose [place] mg 00 on Sat Medical 06/06/22 at Branch 2100, Until Discontinu ed, Routine dofetilide 2022- No 125ug 125 mcg, U nivers (TIKOSYN) 06-07 Oral, ity of capsule 125 02:00: 16:35 Q12H, [place] mcg 00 :11 First dose Medical on Sat Branch 06/06/22 at 2000, Until Discontinu ed, Routine
hotel staff member approving Restricted medication : MARIIA CARDONA [...] 1 mg 01:00: 16:41 DAILY AT [place] 00 :04 1700, Medical First dose Branch [...] tablet 18:17: [place] 48 Medical Branch HYDROcodone Yes 1 tablet [facility] -acetaminop 06-06 as needed ity of hen 7.5-325 18:17: [place] mg per 48 Medical tablet Branch furosemide 2023- No 20mg QD Take [address] [facility] (LASIX) 20 2-13 02-13 tablet (20 Yady kes MG tablet 00:00: 23:59 mg total) Me dical 00 :00 by mouth Center daily. furosemide 2023- No 20mg QD Take [address] [facility] (LASIX) 20 2-13 02-13 tablet (20 Yady kes MG tablet 00:00: 23:59 mg total) Me dical 00 :00 by mouth Center daily. furosemide 2023- No 20mg QD Take [address] [facility] (LASIX) 20 2-13 02-13 tablet (20 Yady kes MG tablet 00:00: 23:59 mg total) Me dical 00 :00 by mouth Center daily. furosemide 2023- No 20mg QD Take [address] [facility] (LASIX) 20 2-13 02-13 tablet (20 Yady kes MG tablet 00:00: 23:59 mg total) Me dical 00 :00 by mouth Center daily. warfarin 0 Yes 1mg QD Take [address] [facility] (COUMADIN, 2-12 by mouth [facility]) 1 16:44: daily. Medi tyrone MG tablet Center warfarin 0 Yes 1mg QD Take [...] Center to 1 tab daily. atorvastati 2023- No 80mg QD Take [address] [facility] (LIPITOR) 05-27 tablet (80 L [facility] 80 MG 00:00: 23:59 mg total) Medica l tablet 00 :00 by mouth Center nightly. metoprolol 2023- No 12.5mg Q.5D Take 0.[address] [facility] tartrate 05-27 tablets [facility] (LOPRESSOR) 00:00: 23:59 (12.5 mg M edical 25 MG 00 :00 total) by Center tablet mouth 2 (two) times daily. atorvastati 2023- No 80mg QD Take [address] [facility] (LIPITOR) 05-27 tablet (80 [facility] 80 MG 00:00: 23:59 mg total) Medica l tablet 00 :00 by mouth Center nightly. metoprolol 2023- No 12.5mg Q.5D Take 0.[address] [facility] tartrate 05-27- tablets [facility] (LOPRESSOR) 00:00: 23:59 (12.5 mg M edical 25 MG 00 :00 total) by Center tablet mouth 2 (two) times daily. atorvastati 2023- No 80mg QD Take [address] [facility] n (LIPITOR) 05-27- tablet (80 [facility] 80 MG 00:00: 23:59 mg total) Medica l tablet 00 :00 by mouth Center nightly. metoprolol 2023- No 12.5mg Q.5D Take 0.[address] [facility] tartrate 05-27 tablets [facility] (LOPRESSOR) 00:00: 23:59 (12.5 mg M edical 25 MG 00 :00 total) by Center tablet mouth 2 (two) times daily. atorvastati 2023- No 80mg QD Take [address] [facility] (LIPITOR) 05-27 tablet (80 L [facility] 80 MG 00:00: 23:59 mg total) Medica l tablet 00 :00 by mouth Center nightly. metoprolol 2023- No 12.5mg Q.5D Take 0.[address] [facility] tartrate 05-27 tablets [facility] (LOPRESSOR) 00:00: 23:59 (12.5 mg M edical 25 MG 00 :00 total) by Center tablet mouth 2 (two) times daily. metoprolol 2022- No 1 tablet [facility] tartrate 25 05-27 with food it y of mg tablet 00:00: 00:00 [place] 00 :00 Medical Branch metoprolol 2022-0 2022- No 1 tablet [facility] tartrate 25 05-27 with food it y of mg tablet 00:00: 00:00 [place] 00 :00 Medical Branch metoprolol 2022-0 2022- No 1 tablet [facility] tartrate 25 05-27 with food it y of mg tablet 00:00: 00:00 [place] 00 :00 Medical Branch warfarin 2022-0 Yes 1mg QD Take [address] [facility] (COUMADIN, 2-04 by mouth [facility]) 1 13:52: daily. Medi tyrone MG tablet 50 Center warfarin 2023-0 Yes 1mg QD Take [address] [facility] (COUMADIN, 2-04 by mouth [facility]) 1 13:52: daily. Medi tyrone MG tablet 50 [place] warfarin 0 Yes 1mg QD Take [address] [facility] (COUMADIN, 2-04 by mouth [facility]) 1 13:52: daily. Medi tyrone MG tablet 50 [place] warfarin 0 Yes 1mg QD Take [address] [facility] (COUMADIN, 2-04 by mouth [facility]) 1 13:52: daily. Medi tyrone MG tablet 50 [place] alendronate 0 Yes Univer s 70 mg 1-26 ity of tablet 00:00: [place] [address] Medical Branch zolpidem 10 0 Yes 1 tablet [facility] mg tablet 1-26 at bedtime ity of 00:00: as needed [place] [address] Medical Branch alendronate 0 Yes Univer s 70 mg 1-26 ity of tablet 00:00: [place] [address] Medical Branch zolpidem 10 0 Yes 1 tablet [facility] mg tablet 1-26 at bedtime ity of 00:00: as needed [place] [address] Medical Branch alendronate 0 Yes Univer s 70 mg 1-26 ity of tablet 00:00: [place] [address] Medical Branch zolpidem 10 0 Yes 1 tablet [facility] mg tablet 1-26 at bedtime ity of 00:00: as needed [place] [address] Medical Branch alendronate 0 Yes Univer s 70 mg 1-26 ity of tablet 00:00: [place] [address] Medical Branch zolpidem 10 2022-0 Yes 1 tablet [facility] mg tablet 1-26 at bedtime ity of 00:00: as needed [place] [address] Medical Branch alendronate 2022-0 Yes Univer s 70 mg 1-26 ity of tablet 00:00: [place] [address] Medical Branch zolpidem 10 2022-0 Yes 1 tablet [facility] mg tablet 1-26 at bedtime ity of 00:00: as needed [place] [address] Medical Branch alendronate 0 Yes Univer s 70 mg 1-26 ity of tablet 00:00: [place] [address] Medical Branch zolpidem 10 2022-0 Yes 1 tablet [facility] mg tablet 1-26 at bedtime ity of 00:00: as needed [place] [address] Medical Branch alendronate 2022-0 Yes Univer s 70 mg 1-26 ity of tablet 00:00: [place] [facility] Branch zolpidem 10 2022-0 Yes 1 tablet [facility] mg tablet 1-26 at bedtime ity of 00:00: as needed Medical Branch alendronate 2022-0 Yes Univer s 70 mg 1-26 ity of tablet 00:00: [place] [facility] Branch zolpidem 10 2022-0 Yes 1 tablet [facility] mg tablet 1-26 at bedtime ity of 00:00: as needed [place] [facility] Branch alendronate 2022-0 Yes Univer s 70 mg 1-26 ity of tablet 00:00: [place] [facility] zolpidem 10 2022-0 Yes 1 tablet [facility] mg tablet -26 at bedtime ity of 00:00: as needed [place] [facility] Branch alendronate 2022-0 Yes Univer s 70 mg 1-26 ity of tablet 00:00: [place] [facility] Branch zolpidem 10 2022-0 Yes 1 tablet [facility] mg tablet 1-26 at bedtime ity of 00:00: as needed [place] [address] Medical Branch alendronate 2022-0 Yes Univer s 70 mg 1-26 ity of tablet 00:00: [place] [address] Medical Branch zolpidem 10 2022-0 Yes 1 tablet [facility] mg tablet -26 at bedtime ity of 00:00: as needed [place] [facility] alendronate 2022-0 Yes Univer s 70 mg 1-26 ity of tablet 00:00: [place] [facility] zolpidem 10 2022-0 Yes 1 tablet [facility] [place] mg tablet 1-26 at bedtime ity of 00:00: as needed [place] [address] Medical Branch alendronate 2022-0 Yes Univer s 70 mg 1-26 ity of tablet 00:00: [place] [address] Medical Branch zolpidem 10 2022-0 Yes 1 tablet [facility] mg tablet 1-26 at bedtime ity of 00:00: as needed [place] [address] Medical Branch alendronate 2022-0 Yes Univer s 70 mg 1-26 ity of tablet 00:00: [place] [facility] zolpidem 10 2022-0 Yes 1 tablet [facility] mg tablet 1-26 at bedtime ity of 00:00: as needed Medical Branch alendronate 2022-0 Yes Univer s 70 mg 1-26 ity of tablet 00:00: [place] [facility] Branch zolpidem 10 2022-0 Yes 1 tablet [facility] mg tablet 1-26 at bedtime ity of 00:00: as needed Medical Branch alendronate 2022-0 Yes Univer s 70 mg 1-26 ity of tablet 00:00: [place] [facility] zolpidem 10 2022-0 Yes 1 tablet [facility] mg tablet 1-26 at bedtime ity of 00:00: as needed [place] [facility] alendronate 2022-0 Yes Univer s 70 mg 1-26 ity of tablet 00:00: [place] [facility] zolpidem 10 2022-0 Yes 1 tablet [facility] [place] mg tablet 1-26 at bedtime ity of 00:00: as needed Medical Branch alendronate 2022-0 Yes Univer s 70 mg 1-26 ity of tablet 00:00: [place] [facility] zolpidem 10 2022-0 Yes 1 tablet [facility] mg tablet 1-26 at bedtime ity of 00:00: as needed [place] [facility] alendronate 2022-0 Yes Univer s 70 mg 1-26 ity of tablet 00:00: [place] [facility] zolpidem 10 2022-0 Yes 1 tablet [place] mg tablet 1-26 at bedtime ity of 00:00: as needed Medical Branch alendronate 2022-0 Yes Univer s 70 mg 1-26 ity of tablet 00:00: [place] [facility] Branch zolpidem 10 2022-0 Yes 1 tablet [facility] [place] mg tablet 1-26 at bedtime ity of 00:00: as needed Medical Branch alendronate 2022-0 Yes Univer s 70 mg 1-26 ity of tablet 00:00: [place] [address] Medical Branch zolpidem 10 2022-0 Yes 1 tablet [facility] mg tablet 1-26 at bedtime ity of 00:00: as needed [place] [facility] alendronate 2022-0 Yes Univer s 70 mg 1-26 ity of tablet 00:00: [place] [address] Medical Branch zolpidem 10 2022-0 Yes 1 tablet [facility] mg tablet 1-26 at bedtime ity of 00:00: as needed [place] [facility] alendronate 2022-0 Yes Univer s 70 mg 1-26 ity of tablet 00:00: [place] [facility] zolpidem 10 2022-0 Yes 1 tablet [facility] mg tablet 1-26 at bedtime ity of 00:00: as needed [place] [facility] Branch alendronate 2022-0 Yes Univer s 70 mg 1-26 ity of tablet 00:00: [place] [facility] zolpidem 10 2022-0 Yes 1 tablet [facility] mg tablet 1-26 at bedtime ity of 00:00: as needed [place] [facility] Branch alendronate 2022-0 Yes Univer s 70 mg 1-26 ity of tablet 00:00: [place] [address] Medical Branch zolpidem 10 2022-0 Yes 1 tablet [facility] mg tablet 1-26 at bedtime ity of 00:00: as needed [place] [facility] alendronate 2022-0 Yes Univer s 70 mg 1-26 ity of tablet 00:00: [place] [address] Medical Branch zolpidem 10 2022-0 Yes 1 tablet [facility] mg tablet 1-26 at bedtime ity of 00:00: as needed [place] [facility] Branch alendronate 2022-0 Yes Univer s 70 mg 1-26 ity of tablet 00:00: [place] [address] Medical Branch zolpidem 10 2022-0 Yes 1 tablet [facility] mg tablet 1-26 at bedtime ity of 00:00: as needed [place] [facility] alendronate 2022-0 Yes Univer s 70 mg 1-26 ity of tablet 00:00: [place] [address] Medical Branch zolpidem 10 2022-0 Yes 1 tablet [facility] mg tablet 1-26 at bedtime ity of 00:00: as needed [place] [facility] Branch alendronate 2022-0 Yes Univer s 70 mg 1-26 ity of tablet 00:00: [place] [address] Medical Branch zolpidem 10 2022-0 Yes 1 tablet [facility] mg tablet 1-26 at bedtime ity of 00:00: as needed [place] [facility] alendronate 2022-0 Yes Univer s 70 mg 1-26 ity of tablet 00:00: [place] [address] Medical Branch zolpidem 10 0 Yes 1 tablet [facility] mg tablet 1-26 at bedtime ity of 00:00: as needed [place] [facility] alendronate 0 Yes Univer s 70 mg 1-26 ity of tablet 00:00: [place] [facility] zolpidem 10 2022-0 Yes 1 tablet [facility] mg tablet 1-26 at bedtime ity of 00:00: as needed Medical Branch alendronate 0 Yes Univer s 70 mg 1-26 ity of tablet 00:00: [place] [address] Medical Branch zolpidem 10 0 Yes 1 tablet [facility] mg tablet 1-26 at bedtime ity of 00:00: as needed [place] [facility] alendronate 0 Yes Univer s 70 mg 1-26 ity of tablet 00:00: [place] [address] Medical Branch zolpidem 10 0 Yes 1 tablet [facility] mg tablet 1-26 at bedtime ity of 00:00: as needed [place] [facility] alendronate 0 Yes Univer s 70 mg 1-26 ity of tablet 00:00: [place] [address] Medical Branch zolpidem 10 0 Yes 1 tablet [facility] mg tablet 1-26 at bedtime ity of 00:00: as needed [place] [address] Medical Branch alendronate 0 Yes Univer s 70 mg 1-26 ity of tablet 00:00: [place] [address] Medical Branch zolpidem 10 0 Yes 1 tablet [facility] mg tablet 1-26 at bedtime ity of 00:00: as needed [place] [address] Medical Branch metoprolol 2022- No [id number] 25mg Take 1 [facility] succinate 1-26 -27 tablet by ity of XL (TOPROL 00:00: 04:59 mouth in [place] XL) 25 mg 00 :00 the Medical 24 hr morning Branch tablet for 90 days. metoprolol 2022- No [id number] 25mg Take 1 [facility] succinate 1-26 04-27 tablet by ity of XL (TOPROL 00:00: 04:59 mouth in [place] XL) 25 mg 00 :00 the Medical 24 hr morning Branch tablet for 90 days. metoprolol 2022- No [id number] 25mg Take 1 [facility] succinate 1-26 04-27 tablet by ity of XL (TOPROL 00:00: 04:59 mouth in [place] XL) 25 mg 00 :00 the Medical 24 hr morning Branch tablet for 90 days. metoprolol 2022- No [id number] 25mg Take 1 [facility] succinate 1-26 04-27 tablet by ity of XL (TOPROL 00:00: 04:59 mouth in [place] XL) 25 mg 00 :00 the Medical 24 hr morning Branch tablet for 90 days. metoprolol 2022- No [id number] 25mg Take 1 [facility] succinate 1-26 -27 tablet by ity of XL (TOPROL 00:00: 04:59 mouth in [place] XL) 25 mg 00 :00 the Medical 24 hr morning Branch tablet for 90 days. metoprolol 2022- No [id number] 25mg Take 1 [facility] succinate 1-08 08-27 tablet by ity of XL (TOPROL 00:00: 04:59 mouth in [place] XL) 25 mg 00 :00 the Medical 24 hr morning Branch tablet for 90 days. metoprolol 2022- No [id number] 25mg Take 1 [facility] succinate 1-10 06-27 tablet by ity of XL (TOPROL 00:00: 00:00 mouth in [place] XL) 25 mg 00 :00 the Medical 24 hr morning Branch tablet for 90 days. metoprolol 2022- No [id number] 25mg Take 1 [facility] succinate 1-10 06-27 tablet by ity of XL (TOPROL 00:00: 00:00 mouth in [place] XL) 25 mg 00 :00 the Medical 24 hr morning Branch tablet for 90 days. metoprolol 2022- No [id number] 25mg Take 1 [facility] succinate 1-26 -27 tablet by ity of XL (TOPROL 00:00: 00:00 mouth in [place] XL) 25 mg 00 :00 the Medical 24 hr morning Branch tablet for 90 days. metoprolol 2022- No [id number] 25mg Take 1 [facility] succinate 1-26 -27 tablet by ity of XL (TOPROL 00:00: 00:00 mouth in [place] XL) 25 mg 00 :00 the Medical 24 hr morning Branch tablet for 90 days. metoprolol 0 2022- No [id number] 25mg Take 1 [facility] succinate 05-1027 tablet by [facility] of XL (TOPROL 00:00: 00:00 mouth in [place] XL) 25 mg 00 :00 the Medical 24 hr morning Branch tablet for 90 days. Diclofenac 2022-0 Yes [facility] Sodium 1 % 1-25 [facility] of gel 00:00: [place] 00 Medical Branch Diclofenac 2022-0 2023- No [facility] Sodium 1 % 106-11 [facility] of gel 00:00: 00:00 [place] 00 :00 Medical Branch Diclofenac 2022-0 2023- No [facility] Sodium 1 % 25 06-11 [facility] of gel 00:00: 00:00 [place] 00 :00 Medical Branch Diclofenac 2022-0 2022- No [facility] Sodium 1 % 05-09- [facility] of gel 00:00: 00:00 [place] 00 :00 Medical Branch Diclofenac 2022-0 3- No [facility] Sodium 1 % 05-09 [facility] of gel 00:00: 00:00 [place] 00 :00 Medical Branch Diclofenac 2022-0 3- No [facility] Sodium 1 % 106-11 [facility] of gel 00:00: 00:00 [place] 00 :00 Medical Branch ezetimibe 2021-1 Yes 10mg Take 1 [facility] (ZETIA) 10 2-19 tablet by [facility] mg tablet 00:00: mouth [place] 00 the Medical morning. Branch metoprolol 2021- Yes [id number] 25mg Take 1 [facility] tartrate 25 2-19 tablet by [facility] mg tablet 00:00: mouth [place] 00 the Medical morning Branch and 1 tablet in the evening. ezetimibe 2021- Yes 10mg Take 1 [facility] (ZETIA) 10 2-19 tablet by [facility] mg tablet 00:00: mouth [place] 00 the Medical morning. Branch metoprolol 2021-04 Yes [id number] 25mg Take 1 [facility] tartrate 25 2-19 tablet by [facility] mg tablet 00:00: mouth [place] 00 the Medical morning Branch and 1 tablet in the evening. ezetimibe 2022-1 Yes 10mg Take 1 [facility] (ZETIA) 10 2-19 tablet by [facility] mg tablet 00:00: mouth [place] 00 the Medical morning. Branch metoprolol 2021-04 Yes [id number] 25mg Take 1 [facility] tartrate 25 2-19 tablet by [facility] mg tablet 00:00: mouth [place] 00 the Medical morning Branch and 1 tablet in the evening. ezetimibe 2021-04 Yes 10mg Take 1 [facility] (ZETIA) 10 2-19 tablet by [facility] mg tablet 00:00: mouth [place] 00 the Medical morning. Branch metoprolol 2021-04 Yes [id number] 25mg Take 1 [facility] tartrate 25 2-19 tablet by [facility] mg tablet 00:00: mouth [place] 00 the Medical morning Branch and 1 tablet in the evening. ezetimibe 2021-04 Yes 10mg Take 1 [facility] (ZETIA) 10 2-19 tablet by [facility] mg tablet 00:00: mouth [place] 00 the Medical morning. Branch metoprolol 2021-04 Yes [id number] 25mg Take 1 [facility] tartrate 25 2-19 tablet by [facility] mg tablet 00:00: mouth [place] 00 the Medical morning Branch and 1 tablet in the evening. ezetimibe 2021-04 Yes 10mg Take 1 [facility] (ZETIA) 10 2-19 tablet by [facility] mg tablet 00:00: mouth [place] 00 the Medical morning. Branch metoprolol 2021-04 Yes [id number] 25mg Take 1 [facility] tartrate 25 2-19 tablet by [facility] mg tablet 00:00: mouth [place] 00 the Medical morning Branch and 1 tablet in the evening. ezetimibe 2021-04 Yes 10mg Take 1 [facility] (ZETIA) 10 2-19 tablet by [facility] mg tablet 00:00: mouth [place] 00 the Medical morning. Branch metoprolol 2021-04 Yes [id number] 25mg Take 1 [facility] tartrate 25 [...] the Medical morning. Branch metoprolol 2021-04- No [id number] 25mg Take 1 [facility] tartrate 25 2-03 05-26 tablet by it y of mg tablet 00:00: 00:00 mouth in [place] 00 :00 the Medical morning Branch and 1 tablet in the evening. metoprolol 2021-04- No [id number] 25mg Take 1 [facility] tartrate 25 -03 05-26 tablet by [facility] y of mg tablet 00:00: 00:00 mouth in [place] 00 :00 the Medical morning Branch and 1 tablet in the evening. warfarin 2021-04 Yes [id number] 1mg Take 1 [facility] mg tablet 2-01 tablet by it[facility] o f 00:00: mouth [place] 00 every Medical evening. Branch Alternate take 1mg x3 days, then 2mg x 4 days warfarin 2021-04 Yes [id number] 1mg Take 1 [facility] mg tablet 2-01 tablet by ity o f 00:00: mouth [place] 00 every Medical evening. Branch Alternate take 1mg x3 days, then 2mg x 4 days dofetilide 2021-04 Yes [id number] 125ug Take 1 [facility] 125 mcg 2-01 capsule by [facility] of capsule 00:00: mouth [place] 00 every 12 Medical (twelve) Branch hours. warfarin 2021-04 Yes [id number] 1mg Take 1 [facility] mg tablet 2-01 tablet by it[facility] o f 00:00: mouth [place] 00 every Medical evening. Branch Alternate take 1mg x3 days, then 2mg x 4 days dofetilide 2021-04 Yes [id number] 125ug Take 1 [facility] 125 mcg 2-01 capsule by [facility] of capsule 00:00: mouth [place] 00 every 12 Medical (twelve) Branch hours. warfarin 2021-04 Yes [id number] 1mg Take 1 [facility] mg tablet 2-01 tablet by [facility] o f 00:00: mouth [place] 00 every Medical evening. Branch Alternate take 1mg x3 days, then 2mg x 4 days dofetilide 2021-04 Yes [id number] 125ug Take 1 [facility] 125 mcg 2-01 capsule by [facility] of capsule 00:00: mouth [place] 00 every 12 Medical (twelve) Branch hours. warfarin 2021-04 Yes [id number] 1mg Take 1 [facility] mg tablet 2-01 tablet by it[facility] o f 00:00: mouth [place] 00 every Medical evening. Branch Alternate take 1mg x3 days, then 2mg x 4 days dofetilide 2021-04 Yes [id number] 125ug Take 1 [facility] 125 mcg 2-01 capsule by [facility] of capsule 00:00: mouth [place] 00 every 12 Medical (twelve) Branch hours. warfarin 2021-04 Yes [id number] 1mg Take 1 [facility] mg tablet 2-01 tablet by it[facility] o f 00:00: mouth [place] 00 every Medical evening. Branch Alternate take 1mg x3 days, then 2mg x 4 days dofetilide 2021-04 Yes [id number] 125ug Take 1 [facility] 125 mcg 2-01 capsule by [facility] of capsule 00:00: mouth [place] 00 every 12 Medical (twelve) Branch hours. warfarin 2021-04 Yes [id number] 1mg Take 1 [facility] mg tablet 2-01 tablet by [facility] o f 00:00: mouth [place] 00 every Medical evening. Branch Alternate take 1mg x3 days, then 2mg x 4 days dofetilide 2021-04 Yes [id number] 125ug Take 1 [facility] 125 mcg 2-01 capsule by [facility] of capsule 00:00: mouth [place] 00 every 12 Medical (twelve) Branch hours. warfarin 2021-04 Yes [id number] 1mg Take 1 [facility] mg tablet 2-01 tablet by it[facility] o f 00:00: mouth [place] 00 every Medical evening. Branch Alternate take 1mg x3 days, then 2mg x 4 days dofetilide 2021-04 Yes [id number] 125ug Take 1 [facility] 125 mcg 2-01 capsule by [facility] of capsule 00:00: mouth [place] 00 every 12 Medical (twelve) Branch hours. warfarin 2021-04 Yes [id number] 1mg Take 1 [facility] mg tablet 2-01 tablet by [facility] o f 00:00: mouth [place] 00 every Medical evening. Branch Alternate take 1mg x3 days, then 2mg x 4 days dofetilide 2021-04 Yes [id number] 125ug Take 1 [facility] 125 mcg 2-01 capsule by [facility] of capsule 00:00: mouth [place] 00 every 12 Medical (twelve) Branch hours. warfarin 2021-04 Yes [id number] 1mg Take 1 [facility] mg tablet 2-01 tablet by [facility] o f 00:00: mouth [place] 00 every Medical evening. Branch Alternate take 1mg x3 days, then 2mg x 4 days dofetilide 2021-04 Yes [id number] 125ug Take 1 [facility] 125 mcg 2-01 capsule by [facility] of capsule 00:00: mouth [place] 00 every 12 Medical (twelve) Branch hours. warfarin 2021-04 Yes [id number] 1mg Take 1 [facility] mg tablet 2-01 tablet by it[facility] o f 00:00: mouth [place] 00 every Medical evening. Branch Alternate take 1mg x3 days, then 2mg x 4 days dofetilide 2021-04 Yes [id number] 125ug Take 1 [facility] 125 mcg 2-01 capsule by [facility] of capsule 00:00: mouth [place] 00 every 12 Medical (twelve) Branch hours. warfarin 2021-04 Yes [id number] 1mg Take 1 [facility] mg tablet 2-01 tablet by [facility] o f 00:00: mouth [place] 00 every Medical evening. Branch Alternate take 1mg x3 days, then 2mg x 4 days dofetilide 2021-04 Yes [id number] 125ug Take 1 [facility] 125 mcg 2-01 capsule by [facility] of capsule 00:00: mouth [place] 00 every 12 Medical (twelve) Branch hours. warfarin 2021-04 Yes [id number] 1mg Take 1 [facility] mg tablet 2-01 tablet by [facility] o f 00:00: mouth [place] 00 every Medical evening. Branch Alternate take 1mg x3 days, then 2mg x 4 days dofetilide 2021-04 Yes [id number] 125ug Take 1 [facility] 125 mcg 2-01 capsule by [facility] of capsule 00:00: mouth [place] 00 every 12 Medical (twelve) Branch hours. warfarin 2021-04 Yes [id number] 1mg Take 1 [facility] mg tablet 2-01 tablet by [facility] o f 00:00: mouth [place] 00 every Medical evening. Branch Alternate take 1mg x3 days, then 2mg x 4 days dofetilide 2021-04 Yes [id number] 125ug Take 1 [facility] 125 mcg 2-01 capsule by [facility] of capsule 00:00: mouth [place] 00 every 12 Medical (twelve) Branch hours. warfarin 2021-04 Yes [id number] 1mg Take 1 [facility] mg tablet 2-01 tablet by [facility] o f 00:00: mouth [place] 00 every Medical evening. Branch Alternate take 1mg x3 days, then 2mg x 4 days dofetilide 2021-04 Yes [id number] 125ug Take 1 [facility] 125 mcg 2-01 capsule by [facility] of capsule 00:00: mouth [place] 00 every 12 Medical (twelve) Branch hours. warfarin 2021-04 Yes [id number] 1mg Take 1 [facility] mg tablet 2-01 tablet by [facility] o f 00:00: mouth [place] 00 every Medical evening. Branch Alternate take 1mg x3 days, then 2mg x 4 days dofetilide 2021-04 Yes [id number] 125ug Take 1 [facility] 125 mcg 2-01 capsule by [facility] of capsule 00:00: mouth [place] 00 every 12 Medical (twelve) Branch hours. warfarin 2021-04- No [id number] 1mg Take 1 [facility] mg tablet 2-06-11 tablet by [facility] of 00:00: 00:00 mouth [place] 00 :00 every Medical evening. Branch Alternate take 1mg x3 days, then 2mg x 4 days dofetilide 2021-04- No [id number] 125ug Take 1 [facility] 125 mcg 2-04 16- capsule by ity o f capsule 00:00: 00:00 mouth [place] 00 :00 every 12 Medical (twelve) Branch hours. warfarin 2021-04- No [id number] 1mg Take 1 [facility] mg tablet 2-04 16- tablet by [facility] of 00:00: 00:00 mouth [place] 00 :00 every Medical evening. Branch Alternate take 1mg x3 days, then 2mg x 4 days dofetilide 2021-04- No [id number] 125ug Take 1 [facility] 125 mcg 2-04 16- capsule by ity o f capsule 00:00: 00:00 mouth [place] 00 :00 every 12 Medical (twelve) Branch hours. warfarin 2021-04- No [id number] 1mg Take 1 [facility] mg tablet 05-16 tablet by [facility] of 00:00: 00:00 mouth [place] 00 :00 every Medical evening. Branch Alternate take 1mg x3 days, then 2mg x 4 days dofetilide 2021-04- No [id number] 125ug Take 1 [facility] 125 mcg 05-16 capsule by ity o f capsule 00:00: 00:00 mouth [place] 00 :00 every 12 Medical (twelve) Branch hours. warfarin 2021-04- No [id number] 1mg Take 1 [facility] mg tablet 05-16 tablet by [facility] of 00:00: 00:00 mouth [place] 00 :00 every Medical evening. Branch Alternate take 1mg x3 days, then 2mg x 4 days dofetilide 2021-04- No [id number] 125ug Take 1 [facility] 125 mcg 05-16 capsule by ity o f capsule 00:00: 00:00 mouth [place] 00 :00 every 12 Medical (twelve) Branch hours. warfarin 2021-04- No [id number] 1mg Take 1 [facility] mg tablet 05-16 tablet by [facility] of 00:00: 00:00 mouth [place] 00 :00 every Medical evening. Branch Alternate take 1mg x3 days, then 2mg x 4 days dofetilide 2021-04- No [id number] 125ug Take 1 [facility] 125 mcg 05-16 capsule by ity o f capsule 00:00: 00:00 mouth [place] 00 :00 every 12 Medical (twelve) Branch hours. warfarin 2021-04 Yes [id number] 1mg Take 1 [facility] mg tablet - tablet by it[facility] o f 00:00: mouth [place] 00 every Medical evening. Branch Alternate take 1mg x4 days, then 2mg x 3 days warfarin 2021-04 Yes [id number] 1mg Take 1 [facility] mg tablet 04-15 tablet by ity o f 00:00: mouth [place] 00 every Medical evening. Branch Alternate take 1mg x4 days, then 2mg x 3 days warfarin 1 2021-04 Yes [id number] 1mg Take 1 [facility] mg tablet 1-01 tablet by ity o f 00:00: mouth [place] 00 every Medical evening. Branch Alternate take 1mg x4 days, then 2mg x 3 days warfarin 2021-04 Yes [id number] 1mg Take 1 [facility] mg tablet 1-01 tablet by it[facility] o f 00:00: mouth [place] 00 every Medical evening. Branch Alternate take 1mg x4 days, then 2mg x 3 days warfarin 2021-04 Yes [id number] 1mg Take 1 [facility] mg tablet 1-01 tablet by ity o f 00:00: mouth [place] 00 every Medical evening. Branch Alternate take 1mg x4 days, then 2mg x 3 days warfarin 2021-04 Yes [id number] 1mg Take 1 [facility] mg tablet 1- tablet by it[facility] o f 00:00: mouth [place] 00 every Medical evening. Branch Alternate take 1mg x4 days, then 2mg x 3 days warfarin 2021-04 Yes [id number] 1mg Take 1 [facility] mg tablet 1- tablet by it[facility] o f 00:00: mouth [place] 00 every Medical evening. Branch Alternate take 1mg x4 days, then 2mg x 3 days warfarin 2021-04 Yes [id number] 1mg Take 1 [facility] mg tablet 1- tablet by it[facility] o f 00:00: mouth [place] 00 every Medical evening. Branch Alternate take 1mg x4 days, then 2mg x 3 days warfarin 2021-04 Yes [id number] 1mg Take 1 [facility] mg tablet 1- tablet by ity o f 00:00: mouth [place] 00 every Medical evening. Branch Alternate take 1mg x4 days, then 2mg x 3 days warfarin 2021-04 Yes [id number] 1mg Take 1 [facility] mg tablet 1-01 tablet by ity o f 00:00: mouth [place] 00 every Medical evening. Branch Alternate take 1mg x4 days, then 2mg x 3 days warfarin 2021-04 Yes [id number] 1mg Take 1 [facility] mg tablet 1-01 tablet by it[facility] o f 00:00: mouth [place] 00 every Medical evening. Branch Alternate take 1mg x4 days, then 2mg x 3 days warfarin 2021-04- [id number] 1mg Take 1 [facility] mg tablet 1- 12- tablet by [facility] of 00:00: 00:00 mouth [place] 00 :00 every Medical evening. Branch Alternate take 1mg x4 days, then 2mg x 3 days warfarin 2021-04 Yes [id number] 1mg Take 1 [facility] mg tablet 0-17 tablet by ity o f 00:00: mouth [place] 00 every Medical evening. Branch Alternate take 1mg x4 days, then 2mg x 3 days warfarin 2021-04 2022- No [id number] 1mg Take 1 [facility] mg tablet 0-17 [...] 00 the Medical morning. Branch ezetimibe 2021-0 2- No 10mg Take 1 [facility] (ZETIA) 10 9-02 12-19 tablet by [facility] of mg tablet 00:00: 00:00 mouth in [place] 00 :00 the Medical morning. Branch warfarin 1 Yes [id number] 1mg Take 1 [facility] mg tablet 8-24 tablet by it[facility] o f 00:00: mouth [place] 00 every Medical evening. Branch Alternate take 1mg x2days, then 2mg x 1 day warfarin 1 0 Yes [id number] 1mg Take 1 [facility] mg tablet 8-24 tablet by ity o f 00:00: mouth [place] 00 every Medical evening. Branch Alternate take 1mg x2days, then 2mg x 1 day warfarin 1 0 Yes [id number] 1mg Take 1 [facility] mg tablet 8-24 tablet by ity o f 00:00: mouth [place] 00 every Medical evening. Branch Alternate take 1mg x2days, then 2mg x 1 day warfarin 1 2021-0 Yes [id number] 1mg Take 1 [facility] mg tablet 8-24 tablet by ity o f 00:00: mouth [place] 00 every Medical evening. Branch Alternate take 1mg x2days, then 2mg x 1 day warfarin 1 2021-0 Yes [id number] 1mg Take 1 [facility] mg tablet 8-24 tablet by ity o f 00:00: mouth [place] 00 every Medical evening. Branch Alternate take 1mg x2days, then 2mg x 1 day warfarin 1 0 Yes [id number] 1mg Take 1 [facility] mg tablet 8-24 tablet by ity o f 00:00: mouth [place] 00 every Medical evening. Branch Alternate take 1mg x2days, then 2mg x 1 day warfarin 1 Yes [id number] 1mg Take 1 [facility] mg tablet 8-24 tablet by ity o f 00:00: mouth [place] 00 every Medical evening. Branch Alternate take 1mg x2days, then 2mg x 1 day warfarin 1 Yes [id number] 1mg Take 1 [facility] mg tablet 8-24 tablet by ity o f 00:00: mouth [place] 00 every Medical evening. Branch Alternate take 1mg x2days, then 2mg x 1 day warfarin 1 Yes [id number] 1mg Take 1 [facility] mg tablet 8-24 tablet by ity o f 00:00: mouth [place] 00 every Medical evening. Branch Alternate take 1mg x2days, then 2mg x 1 day warfarin 1 Yes [id number] 1mg Take 1 [facility] mg tablet 8-24 tablet by ity o f 00:00: mouth [place] 00 every Medical evening. Branch Alternate take 1mg x2days, then 2mg x 1 day warfarin 1 Yes [id number] 1mg Take 1 [facility] mg tablet 8-24 tablet by ity o f 00:00: mouth [place] 00 every Medical evening. Branch Alternate take 1mg x2days, then 2mg x 1 day warfarin 0 Yes [id number] 1mg Take 1 [facility] mg tablet 8-24 tablet by ity o f 00:00: mouth [place] 00 every Medical evening. Branch Alternate take 1mg x2days, then 2mg x 1 day warfarin 1 0 Yes [id number] 1mg Take 1 [facility] mg tablet 8-24 tablet by ity o f 00:00: mouth [place] 00 every Medical evening. Branch Alternate take 1mg x2days, then 2mg x 1 day warfarin 1 2021- No [id number] 1mg Take 1 [facility] mg tablet 8-24 10-17 tablet by [facility] of 00:00: 00:00 mouth [place] 00 :00 every Medical evening. Branch Alternate take 1mg x2days, then 2mg x 1 day warfarin 1 2021- No [id number] 2mg Take 2 [facility] mg tablet 12-05- tablets by [facility]y of 00:00: 00:00 mouth [place] 00 :00 every Medical evening. Branch dofetilide 2021- No [id number] 125ug Take 1 [facility] 125 mcg 8-19 08-27 capsule by ity o f capsule 00:00: 04:59 mouth [place] 00 :00 every 12 Medical (twelve) Branch hours for 7 days. dofetilide 2021- No [id number] 125ug Take 1 [facility] 125 mcg 8-19 08-27 capsule by ity o f capsule 00:00: 04:59 mouth [place] 00 :00 every 12 Medical (twelve) Branch hours for 7 days. dofetilide 2021- No [id number] 125ug Take 1 [facility] 125 mcg 8-17 11-16 capsule by ity o f capsule 00:00: 05:59 mouth [place] 00 :00 every 12 Medical (twelve) Branch hours for 90 days. dofetilide 2021- No [id number] 125ug Take 1 [facility] 125 mcg 8-17 11-16 capsule by ity o f capsule 00:00: 05:59 mouth [place] 00 :00 every 12 Medical (twelve) Branch hours for 90 days. dofetilide 2021- No [id number] 125ug Take 1 [facility] 125 mcg 8-17 11-16 capsule by ity o f capsule 00:00: 05:59 mouth [place] 00 :00 every 12 Medical (twelve) Branch hours for 90 days. dofetilide 2021- No [id number] 125ug Take 1 [facility] 125 mcg 8-17 11-16 capsule by ity o f capsule 00:00: 05:59 mouth [place] 00 :00 every 12 Medical (twelve) Branch hours for 90 days. dofetilide 2021- No [id number] 125ug Take 1 [facility] 125 mcg 8-17 11-16 capsule by ity o f capsule 00:00: 05:59 mouth [place] 00 :00 every 12 Medical (twelve) Branch hours for 90 days. dofetilide 2021- No [id number] 125ug Take 1 [facility] 125 mcg 8-17 11-16 capsule by ity o f capsule 00:00: 05:59 mouth [place] 00 :00 every 12 Medical (twelve) Branch hours for 90 days. dofetilide 2021- No [id number] 125ug Take 1 [facility] 125 mcg 8-17 11-16 capsule by ity o f capsule 00:00: 05:59 mouth [place] 00 :00 every 12 Medical (twelve) Branch hours for 90 days. dofetilide 2- No [id number] 125ug Take 1 [facility] 125 mcg 8-17 11-16 capsule by ity o f capsule 00:00: 05:59 mouth [place] 00 :00 every 12 Medical (twelve) Branch hours for 90 days. dofetilide 2021- No [id number] 125ug Take 1 [facility] 125 mcg 8-17 11-16 capsule by ity o f capsule 00:00: 05:59 mouth [place] 00 :00 every 12 Medical (twelve) Branch hours for 90 days. dofetilide 2- No [id number] 125ug Take 1 [facility] 125 mcg 8-17 11-16 capsule by ity o f capsule 00:00: 05:59 mouth [place] 00 :00 every 12 Medical (twelve) Branch hours for 90 days. dofetilide 2021- No [id number] 125ug Take 1 [facility] 125 mcg 8-17 11-16 capsule by ity o f capsule 00:00: 05:59 mouth [place] 00 :00 every 12 Medical (twelve) Branch hours for 90 days. dofetilide 2- No [id number] 125ug Take 1 [facility] 125 mcg 8-17 11-16 capsule by ity o f capsule 00:00: 05:59 mouth [place] 00 :00 every 12 Medical (twelve) Branch hours for 90 days. dofetilide 2021- No [id number] 125ug Take 1 [facility] 125 mcg 8-17 11-16 capsule by ity o f capsule 00:00: 05:59 mouth [place] 00 :00 every 12 Medical (twelve) Branch hours for 90 days. dofetilide 2- No [id number] 125ug Take 1 [facility] 125 mcg 8-17 11-16 capsule by ity o f capsule 00:00: 05:59 mouth [place] 00 :00 every 12 Medical (twelve) Branch hours for 90 days. dofetilide 2021- No [id number] 125ug Take 1 [facility] 125 mcg 8-17 11-16 capsule by ity o f capsule 00:00: 05:59 mouth [place] 00 :00 every 12 Medical (twelve) Branch hours for 90 days. dofetilide 2021- No [id number] 125ug Take 1 [facility] 125 mcg 8-17 11-16 capsule by ity o f capsule 00:00: 05:59 mouth [place] 00 :00 every 12 Medical (twelve) Branch hours for 90 days. dofetilide 2021- No [id number] 125ug Take 1 [facility] 125 mcg 8-17 11-16 capsule by ity o f capsule 00:00: 05:59 mouth [place] 00 :00 every 12 Medical (twelve) Branch hours for 90 days. dofetilide 2021- No [id number] 125ug Take 1 [facility] 125 mcg 8-17 11-16 capsule by ity o f capsule 00:00: 05:59 mouth [place] 00 :00 every 12 Medical (twelve) Branch hours for 90 days. dofetilide 2021- No [id number] 125ug Take 1 [facility] 125 mcg 8-17 11-16 capsule by ity o f capsule 00:00: 05:59 mouth [place] 00 :00 every 12 Medical (twelve) Branch hours for 90 days. dofetilide 2021- No [id number] 125ug Take 1 [facility] 125 mcg 8-17 11-16 capsule by ity o f capsule 00:00: 05:59 mouth [place] 00 :00 every 12 Medical (twelve) Branch hours for 90 days. atorvastati Yes 80mg Take 1 [facility] ers n 80 mg 7-12 tablet by [facility] of tablet 00:00: mouth at [place] 00 bedtime. Medical Branch atorvastati 0 Yes 80mg Take 1 [facility] ers n 80 mg 7-12 tablet by ity of tablet 00:00: mouth at [place] 00 bedtime. Medical Branch atorvastati 0 Yes 80mg Take 1 [facility] ers n 80 mg 7-12 tablet by ity of tablet 00:00: mouth at [place] 00 bedtime. Medical Branch atorvastati Yes 80mg Take 1 [facility] ers n 80 mg 7-12 tablet by ity of tablet 00:00: mouth at [place] [address] bedtime. Medical Branch atorvastati 2-0 Yes 80mg Take 1 [facility] ers n 80 mg 7-12 tablet by ity of tablet 00:00: mouth at [place] [address] bedtime. Medical Branch atorvastati 2-0 Yes 80mg Take 1 [facility] ers n 80 mg 7-12 tablet by ity of tablet 00:00: mouth at [place] [address] bedtime. Medical Branch atorvastati 2-0 Yes 80mg Take 1 [facility] ers n 80 mg 7-12 tablet by it[facility] of tablet 00:00: mouth at [place] [address] bedtime. Medical Branch atorvastati 2-0 Yes 80mg Take 1 [facility] ers n 80 mg 7-12 tablet by it[facility] of tablet 00:00: mouth at [place] [address] bedtime. Medical Branch atorvastati 2-0 Yes 80mg Take 1 [facility] ers n 80 mg 7-12 tablet by [facility] of tablet 00:00: mouth at [place] [address] bedtime. Medical Branch atorvastati 2-0 Yes 80mg Take 1 [facility] ers n 80 mg 7-12 tablet by [facility] of tablet 00:00: mouth at [place] [address] bedtime. Medical Branch atorvastati 2-0 Yes 80mg Take 1 [facility] ers n 80 mg 7-12 tablet by ity of tablet 00:00: mouth at [place] [address] bedtime. Medical Branch atorvastati 2-0 Yes 80mg Take 1 [facility] ers n 80 mg 7-12 tablet by ity of tablet 00:00: mouth at [place] [address] bedtime. Medical Branch atorvastati 2-0 Yes 80mg Take 1 [facility] ers n 80 mg 7-12 tablet by ity of tablet 00:00: mouth at [place] [address] bedtime. Medical Branch atorvastati 2-0 Yes 80mg Take 1 [facility] ers n 80 mg 7-12 tablet by ity of tablet 00:00: mouth at [place] [address] bedtime. Medical Branch atorvastati 2-0 Yes 80mg Take 1 [facility] ers n 80 mg 7-12 tablet by ity of tablet 00:00: mouth at [place] [address] bedtime. Medical Branch atorvastati 2022-0 Yes 80mg Take 1 [facility] ers n 80 mg 7-12 tablet by ity of tablet 00:00: mouth at [place] [address] bedtime. Medical Branch atorvastati 2022-0 Yes 80mg Take 1 [facility] ers n 80 mg 7-12 tablet by it[facility] of tablet 00:00: mouth at [place] [address] bedtime. Medical Branch atorvastati 2-0 Yes 80mg Take 1 [facility] ers n 80 mg 7-12 tablet by ity of tablet 00:00: mouth at [place] [address] bedtime. Medical Branch atorvastati 2-0 Yes 80mg Take 1 [facility] ers n 80 mg 7-12 tablet by ity of tablet 00:00: mouth at [place] [address] bedtime. Medical Branch atorvastati 2-0 Yes 80mg Take 1 [facility] ers n 80 mg 7-12 tablet by ity of tablet 00:00: mouth at [place] [address] bedtime. Medical Branch atorvastati 2-0 Yes 80mg Take 1 [facility] ers n 80 mg 7-12 tablet by [facility] of tablet 00:00: mouth at [place] [address] bedtime. Medical Branch atorvastati 2-0 Yes 80mg Take 1 [facility] ers n 80 mg 7-12 tablet by [facility] of tablet 00:00: mouth at [place] [address] bedtime. Medical Branch atorvastati 2-0 Yes 80mg Take 1 [facility] ers n 80 mg 7-12 tablet by it[facility] of tablet 00:00: mouth at [place] [address] bedtime. Medical Branch atorvastati 2-0 Yes 80mg Take 1 [facility] ers n 80 mg 7-12 tablet by [facility] of tablet 00:00: mouth at [place] [address] bedtime. Medical Branch atorvastati 2-0 Yes 80mg Take 1 [facility] ers n 80 mg 7-12 tablet by [facility] of tablet 00:00: mouth at [place] [address] bedtime. Medical Branch atorvastati 2-0 Yes 80mg Take 1 [facility] ers n 80 mg 7-12 tablet by it[facility] of tablet 00:00: mouth at [place] [address] bedtime. Medical Branch atorvastati 2-0 Yes 80mg Take 1 [facility] ers n 80 mg 7-12 tablet by ity of tablet 00:00: mouth at [place] [address] bedtime. Medical Branch atorvastati 2022-0 Yes 80mg Take 1 [facility] ers n 80 mg 7-12 tablet by [facility] of tablet 00:00: mouth at [place] [address] bedtime. Medical Branch atorvastati 2022-0 Yes 80mg Take 1 [facility] ers n 80 mg 7-12 tablet by [facility] of tablet 00:00: mouth at [place] [address] bedtime. Medical Branch atorvastati 2-0 Yes 80mg Take 1 [facility] ers n 80 mg 7-12 tablet by [facility] of tablet 00:00: mouth at [place] [address] bedtime. Medical Branch atorvastati 2-0 Yes 80mg Take 1 [facility] ers n 80 mg 7-12 tablet by [facility]y of tablet 00:00: mouth at [place] [address] bedtime. Medical Branch atorvastati 2-0 Yes 80mg Take 1 [facility] ers n 80 mg 7-12 tablet by [facility] of tablet 00:00: mouth at [place] [address] bedtime. Medical Branch atorvastati 2-0 Yes 80mg Take 1 [facility] 80 mg 7-12 tablet by [facility] tablet 00:00: mouth at [place] [address] bedtime. [facility] atorvastati 2-0 Yes 80mg Take 1 [facility] 80 mg 7-12 tablet by [facility] tablet 00:00: mouth at [place] [address] bedtime. [facility] atorvastati 2-0 Yes 80mg Take 1 [facility] 80 mg 7-12 tablet by [facility] tablet 00:00: mouth at [place] [address] bedtime. [facility] atorvastati 2-0 Yes 80mg Take 1 [facility] 80 mg 7-12 tablet by [facility] tablet 00:00: mouth at [place] [address] bedtime. [facility] atorvastati 2-0 Yes 80mg Take 1 [facility] 80 mg 7-12 tablet by [facility] tablet 00:00: mouth at [place] [address] bedtime. [facility] atorvastati 2-0 Yes 80mg Take 1 [facility] 80 mg 7-12 tablet by [facility] tablet 00:00: mouth at [place] [address] bedtime. [facility] atorvastati 2-0 Yes 80mg Take 1 [facility] 80 mg 7-12 tablet by [facility] tablet 00:00: mouth at [place] [address] bedtime. [facility] atorvastati 2-0 Yes 80mg Take 1 [facility] 80 mg 7-12 tablet by [facility] tablet 00:00: mouth at [place] [address] bedtime. [facility] atorvastati 2022-0 Yes 80mg Take 1 [facility] 80 mg 7-12 tablet by [facility] tablet 00:00: mouth at [place] [address] bedtime. [facility] atorvastati 2022-0 Yes 80mg Take 1 [facility] 80 mg 7-12 tablet by [facility] tablet 00:00: mouth at [place] [address] bedtime. [facility] atorvastati 2-0 Yes 80mg Take 1 [facility] 80 mg 7-12 tablet by [facility] tablet 00:00: mouth at [place] [address] bedtime. [facility] atorvastati 2-0 Yes 80mg Take 1 [facility] 80 mg 7-12 tablet by [facility] tablet 00:00: mouth at [place] [address] bedtime. [facility] atorvastati 2-0 Yes 80mg Take 1 [facility] 80 mg 7-12 tablet by [facility] tablet 00:00: mouth at [place] [address] bedtime. [facility] atorvastati 2-0 Yes 80mg Take 1 [facility] 80 mg 7-12 tablet by [facility] tablet 00:00: mouth at [place] [address] bedtime. [facility] atorvastati 2-0 Yes 80mg Take 1 [facility] 80 mg 7-12 tablet by [facility] tablet 00:00: mouth at [place] [address] bedtime. [facility] atorvastati 2-0 Yes 80mg Take 1 [facility] 80 mg 7-12 tablet by [facility] tablet 00:00: mouth at [place] [address] bedtime. [facility] atorvastati 2-0 Yes 80mg Take 1 [facility] 80 mg 7-12 tablet by [facility] tablet 00:00: mouth at [place] [address] bedtime. [facility] atorvastati 2-0 Yes 80mg Take 1 [facility] 80 mg 7-12 tablet by [facility] tablet 00:00: mouth at [place] [address] bedtime. [facility] atorvastati 2-0 Yes 80mg Take 1 [facility] 80 mg 7-12 tablet by [facility] tablet 00:00: mouth at [place] [address] bedtime. [facility] atorvastati 2-0 Yes 80mg Take 1 [facility] 80 mg 7-12 tablet by [facility] tablet 00:00: mouth at [place] [address] bedtime. [facility] atorvastati 2022-0 Yes 80mg Take 1 [facility] 80 mg 7-12 tablet by [facility] tablet 00:00: mouth at [place] [address] bedtime. [facility] atorvastati 2022-0 Yes 80mg Take 1 [facility] 80 mg 7-12 tablet by [facility] tablet 00:00: mouth at [place] [address] bedtime. [facility] atorvastati 2-0 Yes 80mg Take 1 [facility] 80 mg 7-12 tablet by [facility] tablet 00:00: mouth at [place] [address] bedtime. [facility] atorvastati 2-0 Yes 80mg Take 1 [facility] 80 mg 7-12 tablet by [facility] tablet 00:00: mouth at [place] [address] bedtime. [facility] atorvastati 2-0 Yes 80mg Take 1 [facility] 80 mg 7-12 tablet by [facility] tablet 00:00: mouth at [place] [address] bedtime. [facility] atorvastati 2-0 Yes 80mg Take 1 [facility] 80 mg 7-12 tablet by [facility] tablet 00:00: mouth at [place] [address] bedtime. [facility] atorvastati 2-0 Yes 80mg Take 1 [facility] 80 mg 7-12 tablet by [facility] tablet 00:00: mouth at [place] [address] bedtime. [facility] atorvastati 2-0 Yes 80mg Take 1 [facility] 80 mg 7-12 tablet by [facility] tablet 00:00: mouth at [place] [address] bedtime. [facility] atorvastati 2-0 Yes 80mg Take 1 [facility] 80 mg 7-12 tablet by [facility] tablet 00:00: mouth at [place] [address] bedtime. [facility] atorvastati 2-0 Yes 80mg Take 1 [facility] 80 mg 7-12 tablet by [facility] tablet 00:00: mouth at [place] [address] bedtime. [facility] atorvastati 2-0 Yes 80mg Take 1 [facility] 80 mg 7-12 tablet by [facility] tablet 00:00: mouth at [place] [address] bedtime. [facility] atorvastati 2-0 Yes 80mg Take 1 [facility] 80 mg 7-12 tablet by [facility] tablet 00:00: mouth at [place] [address] bedtime. [facility] atorvastati 2-0 Yes 80mg Take 1 [facility] 80 mg 7-12 tablet by [facility] tablet 00:00: mouth at [place] [address] bedtime. [facility] atorvastati 2022-0 Yes 80mg Take 1 [facility] 80 mg 7-12 tablet by [facility] tablet 00:00: mouth at [place] [address] bedtime. [facility] atorvastati 2022-0 Yes 80mg Take 1 [facility] 80 mg 7-12 tablet by [facility] tablet 00:00: mouth at [place] [address] bedtime. [facility] atorvastati 2021-0 Yes 80mg Take 1 [facility] 80 mg 7-12 tablet by [facility] tablet 00:00: mouth at [place] bedtime. [facility] atorvastati 2021-0 Yes 80mg Take 1 [facility] 80 mg 7-12 tablet by [facility] tablet 00:00: mouth at [place] bedtime. [facility] atorvastati 2021-0 Yes 80mg Take 1 [facility] 80 mg 7-12 tablet by [facility] tablet 00:00: mouth at [place] bedtime. [facility] atorvastati 2021-0 Yes 80mg Take 1 [facility] 80 mg 7-12 tablet by [facility] tablet 00:00: mouth at [place] bedtime. [facility] atorvastati 2021-0 Yes 80mg Take 1 [facility] 80 mg 7-12 tablet by [facility] tablet 00:00: mouth at [place] bedtime. [facility] atorvastati 2021-0 Yes 80mg Take 1 [facility] 80 mg 7-12 tablet by [facility] tablet 00:00: mouth at [place] bedtime. [facility] atorvastati 2021-0 Yes 80mg Take 1 [facility] 80 mg 7-12 tablet by [facility] tablet 00:00: mouth at [place] bedtime. [facility] atorvastati 2-0 Yes 80mg Take 1 [facility] 80 mg 7-12 tablet by [facility] tablet 00:00: mouth at [place] bedtime. [facility] atorvastati 2-0 Yes 80mg Take 1 [facility] 80 mg 7-12 tablet by [facility] tablet 00:00: mouth at [place] bedtime. [facility] ezetimibe 2-0 Yes 10mg [...] :00 daily. [facility] furosemide 0 Yes [id number] 40mg Take 2 [facility] 20 mg 2-16 02 tablets by [facility] tablet 00:00: mouth [place] 00 daily. [facility] furosemide 2021-0 Yes [id number] 40mg Take 2 [facility] 20 mg 2-16 02 tablets by [facility] tablet 00:00: mouth [place] 00 daily. [facility] furosemide 2021-0 Yes [id number] 40mg Take 2 [facility] 20 mg 2-16 02 tablets by [facility] tablet 00:00: mouth [place] 00 daily. [facility] furosemide 2021-0 Yes [id number] 40mg Take 2 [facility] 20 mg 2-16 02 tablets by [facility] tablet 00:00: mouth [place] 00 daily. [facility] furosemide 2021-0 Yes [id number] 40mg Take 2 [facility] 20 mg 2-16 02 tablets by [facility] tablet 00:00: mouth [place] 00 daily. [facility] furosemide 2021-0 Yes [id number] 40mg Take 2 [facility] 20 mg 2-16 02 tablets by [facility] tablet 00:00: mouth [place] 00 daily. [facility] furosemide 2021-0 Yes [id number] 40mg Take 2 [facility] 20 mg 2-16 02 tablets by [facility] tablet 00:00: mouth [place] 00 daily. [facility] furosemide 2021-0 Yes [id number] 40mg Take 2 [facility] 20 mg 2-16 02 tablets by [facility] tablet 00:00: mouth [place] 00 daily. [facility] furosemide 2021-0 Yes [id number] 40mg Take 2 [facility] 20 mg 2-16 02 tablets by [facility] tablet 00:00: mouth [place] 00 daily. [facility] furosemide 2021-0 Yes [id number] 40mg Take 2 [facility] 20 mg 2-16 02 tablets by [facility] tablet 00:00: mouth [place] 00 daily. [facility] furosemide 2021-0 Yes [id number] 40mg Take 2 [facility] 20 mg 2-16 02 tablets by [facility] tablet 00:00: mouth [place] 00 daily. [facility] furosemide 2021-0 Yes [id number] 40mg Take 2 [facility] 20 mg 2-16 02 tablets by [facility] tablet 00:00: mouth [place] 00 daily. [facility] furosemide 2021-0 Yes [id number] 40mg Take 2 [facility] 20 mg 2-16 02 tablets by [facility] tablet 00:00: mouth [place] 00 daily. [facility] furosemide 2021-0 Yes [id number] 40mg Take 2 [facility] 20 mg 2-16 02 tablets by [facility] tablet 00:00: mouth [place] 00 daily. [facility] furosemide 2021-0 Yes [id number] 40mg Take 2 [facility] 20 mg 2-16 02 tablets by [facility] tablet 00:00: mouth [place] 00 daily. [facility] furosemide 2021-0 Yes [id number] 40mg Take 2 [facility] 20 mg 2-16 02 tablets by [facility] tablet 00:00: mouth [place] 00 daily. [facility] furosemide 2021-0 Yes [id number] 40mg Take 2 [facility] 20 mg 2-16 02 tablets by [facility] tablet 00:00: mouth [place] 00 daily. [facility] furosemide 2021-0 Yes [id number] 40mg Take 2 [facility] 20 mg 2-16 02 tablets by [facility] tablet 00:00: mouth [place] 00 daily. [facility] furosemide 2021-0 Yes [id number] 40mg Take 2 [facility] 20 mg 2-16 02 tablets by [facility] tablet 00:00: mouth [place] 00 daily. [facility] furosemide 2021-0 Yes [id number] 40mg Take 2 [facility] 20 mg 2-16 02 tablets by [facility] tablet 00:00: mouth [place] 00 daily. [facility] furosemide 2021-0 Yes [id number] 40mg Take 2 [facility] 20 mg 2-16 02 tablets by [facility] tablet 00:00: mouth [place] 00 daily. [facility] furosemide 2021-0 Yes [id number] 40mg Take 2 [facility] 20 mg 2-16 02 tablets by [facility] tablet 00:00: mouth [place] 00 daily. [facility] furosemide 2021-0 Yes [id number] 40mg Take 2 [facility] 20 mg 2-16 02 tablets by [facility] tablet 00:00: mouth [place] 00 daily. [facility] furosemide 2021-0 Yes [id number] 40mg Take 2 [facility] 20 mg 2-16 02 tablets by [facility] tablet 00:00: mouth [place] 00 daily. [facility] furosemide 2021-0 Yes [id number] 40mg Take 2 [facility] 20 mg 2-16 02 tablets by [facility] tablet 00:00: mouth [place] 00 daily. [facility] furosemide 2021-0 Yes [id number] 40mg Take 2 [facility] 20 mg 2-16 02 tablets by [facility] tablet 00:00: mouth [place] 00 daily. [facility] furosemide 2021-0 Yes [id number] 40mg Take 2 [facility] 20 mg 2-16 02 tablets by [facility] tablet 00:00: mouth [place] 00 daily. [facility] furosemide 2021-0 Yes [id number] 40mg Take 2 [facility] 20 mg 2-16 02 tablets by [facility] tablet 00:00: mouth [place] 00 daily. [facility] furosemide 2021-0 Yes [id number] 40mg Take 2 [facility] 20 mg 2-16 02 tablets by [facility] tablet 00:00: mouth [place] 00 daily. [facility] furosemide 2021-0 Yes [id number] 40mg Take 2 [facility] 20 mg 2-16 02 tablets by [facility] tablet 00:00: mouth [place] 00 daily. [facility] furosemide 2021-0 Yes [id number] 40mg Take 2 [facility] 20 mg 2-16 02 tablets by [facility] tablet 00:00: mouth [place] 00 daily. [facility] furosemide 2021-0 Yes [id number] 40mg Take 2 [facility] 20 mg 2-16 02 tablets by [facility] of tablet 00:00: mouth [place] 00 daily. [facility] furosemide 2021-0 Yes [id number] 40mg Take 2 [facility] 20 mg 2-16 02 tablets by [facility] tablet 00:00: mouth [place] 00 daily. [facility] furosemide 2021-0 Yes [id number] 40mg Take 2 [facility] 20 mg 2-16 02 tablets by [facility] tablet 00:00: mouth [place] 00 daily. [facility] furosemide 0 Yes [id number] 40mg Take 2 [facility] 20 mg 2-16 02 tablets by [facility] of tablet 00:00: mouth [place] 00 daily. [facility] furosemide 0 Yes [id number] 40mg Take 2 [facility] 20 mg 2-16 02 tablets by [facility] of tablet 00:00: mouth [place] 00 daily. [facility] furosemide 0 Yes [id number] 40mg Take 2 [facility] 20 mg 2-16 02 tablets by [facility] of tablet 00:00: mouth [place] 00 daily. [facility] furosemide 0 Yes [id number] 40mg Take 2 [facility] 20 mg 2-16 02 tablets by it[facility] of tablet 00:00: mouth [place] 00 daily. [facility] furosemide Yes [id number] 40mg Take 2 [facility] 20 mg 2-16 02 tablets by it[facility] of tablet 00:00: mouth [place] 00 daily. [facility] furosemide Yes [id number] 40mg Take 2 [facility] 20 mg 2-16 02 tablets by it[facility] of tablet 00:00: mouth [place] 00 daily. [facility] furosemide 0 Yes [id number] 40mg Take 2 [facility] 20 mg 2-16 02 tablets by it[facility] of tablet 00:00: mouth [place] 00 daily. [facility] furosemide 0 Yes [id number] 40mg Take 2 [facility] 20 mg 2-16 02 tablets by it[facility] of tablet 00:00: mouth [place] 00 daily. [facility] furosemide 2022- No [id number] 40mg Take 2 [facility] 20 mg 2-16 02-27 02 tablets by it[facility] of tablet 00:00: 00:00 mouth [place] 00 :00 daily. [facility] furosemide 2021-0 3- No [id number] 40mg Take 2 [facility] 20 mg 2-16 02-27 02 tablets by ity of tablet 00:00: 00:00 mouth [place] 00 :00 daily. [facility] furosemide 0 2022- No [id number] 40mg Take 2 [facility] 20 mg 2-16 02-27 02 tablets by ity of tablet 00:00: 00:00 mouth [place] 00 :00 daily. [facility] furosemide 2021-0 2022- No [id number] 40mg Take 2 [facility] 20 mg 2-16 06-11 02 tablets by ity of tablet 00:00: 00:00 mouth [place] 00 :00 daily. [facility] furosemide 2022- No [id number] 40mg Take 2 [facility] 20 mg 2-16 - 02 tablets by [facility] of tablet 00:00: 00:00 mouth [place] 00 :00 daily. [facility] metoprolol 2020-04 Yes [id number] 25mg Take 1 [facility] n[facility] tartrate 25 2-15 tablet by [facility] of mg tablet 00:00: mouth (two) Medical times Branch daily. metoprolol 2020-04 Yes [id number] 25mg Take 1 [facility] tartrate 25 2-15 tablet by [facility] of mg tablet 00:00: mouth (two) Medical times Branch daily. metoprolol 2020-04 Yes [id number] 25mg Take 1 [facility] nivers tartrate 25 2-15 tablet by [facility] of mg tablet 00:00: mouth (two) Medical times Branch daily. metoprolol 2020-04 Yes [id number] 25mg Take 1 [facility] nivers tartrate 25 2-15 tablet by [facility] of mg tablet 00:00: mouth (two) Medical times Branch daily. metoprolol 2020-04 Yes [id number] 25mg Take 1 [facility]ivers tartrate 25 2-15 tablet by [facility] of mg tablet 00:00: mouth (two) Medical times Branch daily. metoprolol 2020-04 Yes [id number] 25mg Take 1 [facility] tartrate 25 2-15 tablet by [facility] of mg tablet 00:00: mouth (two) Medical times Branch daily. metoprolol 2020-04 Yes [id number] 25mg Take 1 [facility] nivers tartrate 25 2-15 tablet by [facility] of mg tablet 00:00: mouth (two) Medical times Branch daily. metoprolol 2020-04 Yes [id number] 25mg Take 1 [facility]ivers tartrate 25 2-15 tablet by ity of mg tablet 00:00: mouth (two) Medical times Branch daily. metoprolol 2020-04 Yes [id number] 25mg Take 1 [facility]ivers tartrate 25 2-15 tablet by [facility] of mg tablet 00:00: mouth (two) Medical times Branch daily. metoprolol 2020-04 Yes [id number] 25mg Take 1 [facility]ivers tartrate 25 2-15 tablet by it[facility] of mg tablet 00:00: mouth (two) Medical times Branch daily. metoprolol 2020-04 Yes [id number] 25mg Take 1 [facility] nivers tartrate 25 2-15 tablet by ity of mg tablet 00:00: mouth (two) Medical times Branch daily. metoprolol 2020-04 Yes [id number] 25mg Take 1 [facility] nivers tartrate 25 2-15 tablet by [facility] of mg tablet 00:00: mouth (two) Medical times Branch daily. metoprolol 2020-04 Yes [id number] 25mg Take 1 [facility]ivers tartrate 25 2-15 tablet by ity of mg tablet 00:00: mouth (two) Medical times Branch daily. metoprolol 2020-04 Yes [id number] 25mg Take 1 [facility] nivers tartrate 25 2-15 tablet by ity of mg tablet 00:00: mouth (two) Medical times Branch daily. metoprolol 2020-04 Yes [id number] 25mg Take 1 [facility] nivers tartrate 25 2-15 tablet by ity of mg tablet 00:00: mouth () Medical times Branch daily. metoprolol 2020-04 Yes [id number] 25mg Take 1 [facility] nivers tartrate 25 2-15 tablet by ity of mg tablet 00:00: mouth (two) Medical times Branch daily. metoprolol 2020-04 Yes [id number] 25mg Take 1 [facility] nivers tartrate 25 2-15 tablet by ity of mg tablet 00:00: mouth (two) Medical times Branch daily. metoprolol 2020-04 Yes [id number] 25mg Take 1 [facility] nivers tartrate 25 2-15 tablet by ity of mg tablet 00:00: mouth (two) Medical times Branch daily. metoprolol 2020-04 Yes [id number] 25mg Take 1 [facility] nivers tartrate 25 2-15 tablet by ity of mg tablet 00:00: mouth (two) Medical times Branch daily. metoprolol 2020-04 Yes [id number] 25mg Take 1 [facility] nivers tartrate 25 2-15 tablet by ity of mg tablet 00:00: mouth [place] (two) Medical times Branch daily. metoprolol 2020-04 Yes [id number] 25mg Take 1 [facility] nivers tartrate 25 2-15 tablet by ity of mg tablet 00:00: mouth [place] (two) Medical times Branch daily. metoprolol 2020-04 Yes [id number] 25mg Take 1 [facility] nivers tartrate 25 2-15 tablet by ity of mg tablet 00:00: mouth (two) Medical times Branch daily. metoprolol 2020-04 Yes [id number] 25mg Take 1 [facility] nivers tartrate 25 2-15 tablet by ity of mg tablet 00:00: [address] (two) Medical times Branch daily. metoprolol 2020-04 Yes [id number] 25mg Take 1 U nivers tartrate 25 2-15 tablet by ity of mg tablet 00:00: [facility] [place] (two) Medical times Branch daily. metoprolol 2020-04 Yes [id number] 25mg Take 1 [facility] nivers tartrate 25 2-15 tablet by ity of mg tablet 00:00: [facility] (two) Medical times Branch daily. metoprolol 2020-04 Yes [id number] 25mg Take 1 U nivers tartrate 25 2-15 tablet by ity of mg tablet 00:00: [facility] [place] (two) Medical times Branch daily. metoprolol 2020-04 Yes [id number] 25mg Take 1 [facility] nivers tartrate 25 2-15 tablet by ity of mg tablet 00:00: mouth [place] (two) Medical times Branch daily. metoprolol 2020-04 Yes [id number] 25mg Take 1 [facility] nivers tartrate 25 2-15 tablet by ity of mg tablet 00:00: mouth [place] (two) Medical times Branch daily. metoprolol 2020-04 Yes [id number] 25mg Take 1 [facility] nivers tartrate 25 2-15 tablet by ity of mg tablet 00:00: mouth [address] [place] [address] (two) Medical times Branch daily. metoprolol 2020-04- No [id number] 25mg Take 1 [facility] tartrate 25 2-15 12-19 tablet by it y of mg tablet 00:00: 00:00 mouth [place] :[place] (two) Medical times Branch daily. polyethylen 2020-04 Yes [id number] 17g Take 1 [facility] e glycol 0-29 Packet by ity of 3350 17 00:00: mouth [place] gram powder 00 daily. Medica l [facility] polyethylen 2020-04 Yes [id number] 17g Take 1 [facility] e glycol 0-29 Packet by ity of 3350 17 00:00: mouth [place] gram powder 00 daily. Medica l [facility] polyethylen 2020-04 Yes [id number] 17g Take 1 [facility] e glycol 0-29 Packet by ity of 3350 17 00:00: mouth [place] gram powder 00 daily. Medica l [facility] polyethylen 2020-04 Yes [id number] 17g Take 1 [facility] e glycol 0-29 Packet by ity of 3350 17 00:00: mouth [place] gram powder 00 daily. Med[facility] l [facility] polyethylen 2020-04 Yes [id number] 17g Take 1 [facility] e glycol 0-29 Packet by ity of 3350 17 00:00: mouth [place] gram powder 00 daily. Medica l [facility] polyethylen 2020-04 Yes [id number] 17g Take 1 [facility] e glycol 0-29 Packet by ity of 3350 17 00:00: mouth [place] gram powder 00 daily. Medica l [facility] polyethylen 2020-04 Yes [id number] 17g Take 1 [facility] e glycol 0-29 Packet by ity of 3350 17 00:00: mouth [place] gram powder 00 daily. Medica l [facility] polyethylen 2020-04 Yes [id number] 17g Take 1 [facility] e glycol 0-29 Packet by ity of 3350 17 00:00: mouth [place] gram powder 00 daily. Medica [facility] polyethylen 2020-04 Yes [id number] 17g Take 1 [facility] e glycol 0-29 Packet by ity of 3350 17 00:00: mouth [place] gram powder 00 daily. Medica l [facility] polyethylen 2020-04 Yes [id number] 17g Take 1 [facility] e glycol 0-29 Packet by ity of 3350 17 00:00: mouth [place] gram powder 00 daily. Medica [facility] polyethylen 2020-04 Yes [id number] 17g Take 1 [facility] e glycol 0-29 Packet by ity of 3350 17 00:00: mouth [place] gram powder 00 daily. Medica [facility] polyethylen 2020-04 Yes [id number] 17g Take 1 [facility] e glycol 0-29 Packet by ity of 3350 17 00:00: mouth [place] gram powder 00 daily. Medica l [facility] polyethylen 2020-04 Yes [id number] 17g Take 1 [facility] e glycol 0-29 Packet by ity of 3350 17 00:00: mouth [place] gram powder 00 daily. Medica l [facility] polyethylen 2020-04 Yes [id number] 17g Take 1 [facility] e glycol 0-29 Packet by ity of 3350 17 00:00: mouth [place] gram powder 00 daily. Medica l [facility] polyethylen 2020-04 Yes [id number] 17g Take 1 [facility] e glycol 0-29 Packet by ity of 3350 17 00:00: mouth [place] gram powder 00 daily. Medica l [facility] polyethylen 2020-04 Yes [id number] 17g Take 1 [facility] e glycol 0-29 Packet by ity of 3350 17 00:00: mouth [place] gram powder 00 daily. Medica l [facility] polyethylen 2020-04 Yes [id number] 17g Take 1 [facility] e glycol 0-29 Packet by ity of 3350 17 00:00: mouth [place] gram powder 00 daily. Medica [facility] polyethylen 2020-04 Yes [id number] 17g Take 1 [facility] e glycol 0-29 Packet by ity of 3350 17 00:00: mouth [place] gram powder 00 daily. Med[facility] polyethylen 2020-04 Yes [id number] 17g Take 1 [facility] e glycol 0-29 Packet by ity of 3350 17 00:00: mouth [place] gram powder 00 daily. Med[facility] polyethylen 2020-04 Yes [id number] 17g Take 1 [facility] e glycol 0-29 Packet by ity of 3350 17 00:00: mouth [place] gram powder 00 daily. Med[facility] polyethylen 2020-04 Yes [id number] 17g Take 1 [facility] e glycol 0-29 Packet by ity of 3350 17 00:00: mouth [place] gram powder 00 daily. Med[facility] polyethylen 2020-04 Yes [id number] 17g Take 1 [facility] e glycol 0-29 Packet by ity of 3350 17 00:00: mouth [place] gram powder 00 daily. [facility] polyethylen 2020-04 Yes [id number] 17g Take 1 [facility] e glycol 0-29 Packet by ity of 3350 17 00:00: mouth [place] gram powder 00 daily. Med[facility] polyethylen 2020-04 Yes [id number] 17g Take 1 [facility] e glycol 0-29 Packet by ity of 3350 17 00:00: mouth [place] gram powder 00 daily. [facility] polyethylen 2020-04 Yes [id number] 17g Take 1 [facility] e glycol 0-29 Packet by ity of 3350 17 00:00: mouth [place] gram powder 00 daily. [facility] polyethylen 2020-04 Yes [id number] 17g Take 1 [facility] e glycol 0-29 Packet by ity of 3350 17 00:00: mouth [place] gram powder 00 daily. [facility] polyethylen 2020-04 Yes [id number] 17g Take 1 [facility] e glycol 0-29 Packet by ity of 3350 17 00:00: mouth [place] gram powder 00 daily. Med[facility] polyethylen 2020-04 Yes [id number] 17g Take 1 [facility] e glycol 0-29 Packet by ity of 3350 17 00:00: mouth [place] gram powder 00 daily. [facility] polyethylen 2020-04 Yes [id number] 17g Take 1 [facility] e glycol 0-29 Packet by ity of 3350 17 00:00: mouth [place] gram powder 00 daily. [facility] polyethylen 2020-04 Yes [id number] 17g Take 1 [facility] e glycol 0-29 Packet by ity of 3350 17 00:00: mouth [place] gram powder 00 daily. Med[facility] polyethylen 2020-04 Yes [id number] 17g Take 1 [facility] e glycol 0-29 Packet by ity of 3350 17 00:00: mouth [place] gram powder 00 daily. Med[facility] polyethylen 2020-04 Yes [id number] 17g Take 1 [facility] e glycol 0-29 Packet by ity of 3350 17 00:00: mouth [place] gram powder 00 daily. Med[facility] polyethylen 2020-04 Yes [id number] 17g Take 1 [facility] e glycol 0-29 Packet by ity of 3350 17 00:00: mouth [place] gram powder 00 daily. Med[facility] l [facility] polyethylen 2020-04 Yes [id number] 17g Take 1 [facility] e glycol 0-29 Packet by ity of 3350 17 00:00: mouth [place] gram powder 00 daily. [facility] polyethylen 2020-04 Yes [id number] 17g Take 1 [facility] e glycol 0-29 Packet by ity of 3350 17 00:00: mouth [place] gram powder 00 daily. Med[facility] polyethylen 2020-04 Yes [id number] 17g Take 1 [facility] e glycol 0-29 Packet by ity of 3350 17 00:00: mouth [place] gram powder 00 daily. Med[facility] polyethylen 2020-04 Yes [id number] 17g Take 1 [facility] e glycol 0-29 Packet by ity of 3350 17 00:00: mouth [place] gram powder 00 daily. [facility] polyethylen 2020-04 Yes [id number] 17g Take 1 [facility] e glycol 0-29 Packet by ity of 3350 17 00:00: mouth [place] gram powder 00 daily. [facility] polyethylen 2020-04 Yes [id number] 17g Take 1 [facility] e glycol 0-29 Packet by ity of 3350 17 00:00: mouth [place] gram powder 00 daily. Med[facility] polyethylen 2020-04 Yes [id number] 17g Take 1 [facility] e glycol 0-29 Packet by ity of 3350 17 00:00: mouth [place] gram powder 00 daily. [facility] polyethylen 2020-04 Yes [id number] 17g Take 1 [facility] e glycol 0-29 Packet by ity of 3350 17 00:00: mouth [place] gram powder 00 daily. Med[facility] polyethylen 2020-04- No [id number] 17g Take 1 [facility] e glycol 0-29 02-22 Packet by ity o f 3350 17 00:00: 00:00 mouth [place] gram powder 00 :00 daily. Medica l [facility] polyethylen 2020-04- No [id number] 17g Take 1 [facility] e glycol 0-29 02-22 Packet by ity o f 3350 17 00:00: 00:00 mouth [place] gram powder 00 :00 daily. Medica l [facility] polyethylen 2020-04- No [id number] 17g Take 1 [facility] e glycol 0-29 02-22 Packet by ity o f 3350 17 00:00: 00:00 mouth [place] gram powder 00 :00 daily. Medica l Branch docusate 2020-04 Yes [id number] 100mg Take 1 U nivers 100 mg 0-28 capsule by ity of capsule 00:00: mouth (two) Medical times Branch daily. docusate 2020-04 Yes [id number] 100mg Take 1 [facility] 100 mg 0-28 capsule by [facility] capsule 00:00: mouth (two) [facility] times [facility] daily. docusate 2020-04 Yes [id number] 100mg Take 1 [facility] 100 mg 0-28 capsule by [facility] capsule 00:00: mouth (two) Medical times [facility] daily. docusate 2020-04 Yes [id number] 100mg Take 1 [facility] 100 mg 0-28 capsule by [facility] of capsule 00:00: mouth (two) Medical times [facility] daily. docusate 2020-04 Yes [id number] 100mg Take 1 [facility] 100 mg 0-28 capsule by [facility] of capsule 00:00: mouth (two) Medical times [facility] daily. docusate 2020-04 Yes [id number] 100mg Take 1 [facility] 100 mg 0-28 capsule by [facility] of capsule 00:00: mouth (two) Medical times [facility] daily. docusate 2020-04 Yes [id number] 100mg Take 1 [facility] 100 mg 0-28 capsule by [facility] of capsule 00:00: mouth [place] (two) Medical times [facility] daily. docusate 2020-04 Yes [id number] 100mg Take 1 [facility] 100 mg 0-28 capsule by [facility] of capsule 00:00: mouth (two) Medical times [facility] daily. docusate 2020-04 Yes [id number] 100mg Take 1 [facility] 100 mg 0-28 capsule by [facility] of capsule 00:00: mouth [place] (two) Medical times [facility] daily. docusate 2020-04 Yes [id number] 100mg Take 1 [facility] 100 mg 0-28 capsule by [facility] of capsule 00:00: mouth 2 (two) Medical times [facility] daily. docusate 2020-04 Yes [id number] 100mg Take 1 [facility] 100 mg 0-28 capsule by [facility] of capsule 00:00: mouth (two) Medical times [facility] daily. docusate 2020-04 Yes [id number] 100mg Take 1 [facility] 100 mg 0-28 capsule by [facility] of capsule 00:00: mouth (two) Medical times [facility] daily. docusate 2020-04 Yes [id number] 100mg Take 1 [facility] 100 mg 0-28 capsule by [facility] of capsule 00:00: mouth (two) Medical times [facility] daily. docusate 2020-04 Yes [id number] 100mg Take 1 [facility] 100 mg 0-28 capsule by [facility] of capsule 00:00: mouth (two) Medical times [facility] daily. docusate 2020-04 Yes [id number] 100mg Take 1 [facility] 100 mg 0-28 capsule by [facility] of capsule 00:00: mouth (two) Medical times [facility] daily. docusate 2020-04 Yes [id number] 100mg Take 1 [facility] 100 mg 0-28 capsule by [facility] of capsule 00:00: mouth (two) Medical times [facility] daily. docusate 2020-04 Yes [id number] 100mg Take 1 [facility] 100 mg 0-28 capsule by [facility] of capsule 00:00: mouth (two) Medical times [facility] daily. docusate 2020-04 Yes [id number] 100mg Take 1 [facility] 100 mg 0-28 capsule by [facility] of capsule 00:00: mouth (two) Medical times [facility] daily. docusate 2020-04 Yes [id number] 100mg Take 1 [facility] 100 mg 0-28 capsule by [facility] of capsule 00:00: mouth (two) Medical times [facility] daily. docusate 2020-04 Yes [id number] 100mg Take 1 [facility] 100 mg 0-28 capsule by [facility] of capsule 00:00: mouth (two) Medical times [facility] daily. docusate 2020-04 Yes [id number] 100mg Take 1 [facility] 100 mg 0-28 capsule by [facility] of capsule 00:00: mouth (two) Medical times [facility] daily. docusate 2020-04 Yes [id number] 100mg Take 1 [facility] 100 mg 0-28 capsule by [facility] of capsule 00:00: mouth (two) [facility] times [facility] daily. docusate 2020-04 Yes [id number] 100mg Take 1 [facility] 100 mg 0-28 capsule by [facility] of capsule 00:00: mouth (two) Medical times [facility] daily. docusate 2020-04 Yes [id number] 100mg Take 1 [facility] 100 mg 0-28 capsule by [facility] of capsule 00:00: mouth (two) Medical times [facility] daily. docusate 2020-04 Yes [id number] 100mg Take 1 [facility] 100 mg 0-28 capsule by [facility] of capsule 00:00: mouth (two) Medical times [facility] daily. docusate 2020-04 Yes [id number] 100mg Take 1 [facility] 100 mg 0-28 capsule by [facility] of capsule 00:00: mouth (two) [facility] times [facility] daily. docusate 2020-04 Yes [id number] 100mg Take 1 [facility] 100 mg 0-28 capsule by [facility] of capsule 00:00: mouth (two) Medical times [facility] daily. docusate 2020-04 Yes [id number] 100mg Take 1 [facility] 100 mg 0-28 capsule by [facility] of capsule 00:00: mouth (two) [facility] times [facility] daily. docusate 2020-04 Yes [id number] 100mg Take 1 [facility] 100 mg 0-28 capsule by [facility] of capsule 00:00: mouth (two) [facility] times [facility] daily. docusate 2020-04 Yes [id number] 100mg Take 1 [facility] 100 mg 0-28 capsule by [facility] of capsule 00:00: mouth (two) Medical times [facility] daily. docusate 2020-04 Yes [id number] 100mg Take 1 [facility] 100 mg 0-28 capsule by [facility] of capsule 00:00: mouth (two) [facility] times [facility] daily. docusate 2020-04 Yes [id number] 100mg Take 1 [facility] 100 mg 0-28 capsule by [facility] of capsule 00:00: mouth (two) Medical times [facility] daily. docusate 2020-04 Yes [id number] 100mg Take 1 [facility] 100 mg 0-28 capsule by [facility] of capsule 00:00: mouth 2 [place] (two) Medical times [facility] daily. docusate 2020-04 Yes [id number] 100mg Take 1 [facility] 100 mg 0-28 capsule by [facility] of capsule 00:00: mouth 2 [place] (two) Medical times [facility] daily. docusate 2020-04 Yes [id number] 100mg Take 1 [facility] 100 mg 0-28 capsule by [facility] of capsule 00:00: mouth 2 [place] (two) Medical times [facility] daily. docusate 2020-04 Yes [id number] 100mg Take 1 [facility] 100 mg 0-28 capsule by [facility] of capsule 00:00: mouth 2 [place] (two) Medical times [facility] daily. docusate 2020-04 Yes [id number] 100mg Take 1 [facility] 100 mg 0-28 capsule by [facility] of capsule 00:00: mouth [address] [place] [address] (two) Medical times Branch daily. docusate 2020-04 Yes [id number] 100mg Take 1 [facility] 100 mg 0-28 capsule by [facility] of capsule 00:00: mouth [address] [place] [address] (two) Medical times [facility] daily. docusate 2020-04 Yes [id number] 100mg Take 1 [facility] 100 mg 0-28 capsule by [facility] of capsule 00:00: mouth 2 [place] (two) Medical times [facility] daily. docusate 2020-04 Yes [id number] 100mg Take 1 [facility] 100 mg 0-28 capsule by [facility] of capsule 00:00: mouth [address] [place] [address] (two) Medical times [facility] daily. docusate 2020-04 Yes [id number] 100mg Take 1 [facility] 100 mg 0-28 capsule by [facility] of capsule 00:00: mouth 2 [place] (two) Medical times [facility] daily. docusate 2020-04- No [id number] 100mg Take 1 [facility] 100 mg 0-28 02-22 capsule by [facility] of capsule 00:00: 00:00 mouth 2 [place] 00 :00 (two) Medical times [facility] daily. docusate 2020-04- No [id number] 100mg Take 1 [facility] 100 mg 0-28 02-22 capsule by [facility] of capsule 00:00: 00:00 mouth 2 [place] 00 :00 (two) Medical times [facility] daily. docusate 2020-04- No [id number] 100mg Take 1 [facility] 100 mg 0-06-06 capsule by [facility] of capsule 00:00: 00:00 mouth 2 [place] 00 :00 (two) Medical times [facility] daily. gabapentin 2017-0 Yes Take by [facility] 300 mg 4-21 mouth ity of capsule 00:00: daily. [place] [facility] lidocaine 5 2017-0 Yes [facility] % (700 4-21 ity of mg/patch) 00:00: [place] patch 00 [facility] gabapentin 2017-0 Yes Take by [facility] 300 mg 4-21 mouth ity of capsule 00:00: daily. [place] [facility] lidocaine 5 2017-0 Yes [facility] % (700 4-21 ity of mg/patch) 00:00: [place] patch [facility] gabapentin 2017-0 Yes Take by [facility] 300 mg 4-21 mouth ity of capsule 00:00: daily. [place] [facility] lidocaine 5 2017-0 Yes [facility] % (700 4-21 ity of mg/patch) 00:00: [place] patch [facility] gabapentin 2017-0 Yes Take by [facility] 300 mg 4-21 mouth ity of capsule 00:00: daily. [place] [facility] lidocaine 5 2017-0 Yes Un[facility] % (700 4-21 ity of mg/patch) 00:00: [place] patch [facility] gabapentin 2017-0 Yes Take by [facility] 300 mg 4-21 mouth ity of capsule 00:00: daily. [place] [facility] lidocaine 5 2017-0 Yes [facility] % (700 4-21 ity of mg/patch) 00:00: [place] patch [facility] gabapentin 2017-0 Yes Take by [facility] 300 mg 4-21 mouth ity of capsule 00:00: daily. [place] [facility] lidocaine 5 2017-0 Yes Un[facility] % (700 4-21 ity of mg/patch) 00:00: [place] patch 00 [facility] gabapentin 2017-0 Yes Take by [facility] 300 mg 4-21 mouth ity of capsule 00:00: daily. [place] [facility] lidocaine 5 2017-0 Yes Univer [...] 4-21 mouth ity of capsule 00:00: daily. [place] [facility] lidocaine 5 2017-0 Yes [facility] % (700 4-21 ity of mg/patch) 00:00: [place] patch [facility] gabapentin 2017-0 Yes Take by [facility] 300 mg 4-21 mouth ity of capsule 00:00: daily. [place] [facility] lidocaine 5 2017-0 Yes [facility] % (700 4-21 ity of mg/patch) 00:00: [place] patch [facility] gabapentin 2017-0 Yes Take by [facility] 300 mg 4-21 mouth ity of capsule 00:00: daily. [place] [facility] lidocaine 5 2017-0 Yes [facility] % (700 4-21 ity of mg/patch) 00:00: [place] patch [facility] gabapentin 2017-0 Yes Take by [facility] 300 mg 4-21 mouth ity of capsule 00:00: daily. [place] [facility] lidocaine 5 2017-0 Yes [facility] % (700 4-21 ity of mg/patch) 00:00: [place] patch [facility] gabapentin 2017-0 Yes Take by [facility] 300 mg 4-21 mouth ity of capsule 00:00: daily. [place] [facility] lidocaine 5 2017-0 Yes [facility] % (700 4-21 ity of mg/patch) 00:00: [place] patch [facility] gabapentin 2017-0 Yes Take by [facility] 300 mg 4-21 mouth ity of capsule 00:00: daily. [place] [facility] lidocaine 5 2017-0 Yes Univer [...] 4-21 mouth ity of capsule 00:00: daily. [place] [facility] lidocaine 5 2017-0 Yes [facility] % (700 4-21 ity of mg/patch) 00:00: [place] patch [facility] gabapentin 2017-0 Yes Take by [facility] 300 mg 4-21 mouth ity of capsule 00:00: daily. [place] [facility] lidocaine 5 2017-0 Yes [facility] % (700 4-21 ity of mg/patch) 00:00: [place] patch [facility] gabapentin 2017-0 Yes Take by [facility] 300 mg 4-21 mouth ity of capsule 00:00: daily. [place] [facility] lidocaine 5 2017-0 Yes Univer [...] 4-21 mouth ity of capsule 00:00: daily. [place] [facility] lidocaine 5 2017-0 Yes Un[facility] % (700 4-21 ity of mg/patch) 00:00: [place] patch 00 [facility] gabapentin 2017-0 Yes Take by [facility] 300 mg 4-21 mouth ity of capsule 00:00: daily. [place] [facility] lidocaine 5 2017-0 Yes [facility] % (700 4-21 ity of mg/patch) 00:00: [place] patch 00 [facility] gabapentin 2017-0 Yes Take by [facility] 300 mg 4-21 mouth ity of capsule 00:00: daily. [place] [facility] lidocaine 5 2017-0 Yes Un[facility] % (700 4-21 ity of mg/patch) 00:00: [place] patch [facility] gabapentin 2017-0 Yes Take by [facility] 300 mg 4-21 mouth ity of capsule 00:00: daily. [place] [facility] lidocaine 5 2017-0 Yes [facility] % (700 4-21 ity of mg/patch) 00:00: [place] patch [facility] gabapentin 2017-0 Yes Take by [facility] 300 mg 4-21 mouth ity of capsule 00:00: daily. [place] [facility] lidocaine 5 2017-0 Yes Un[facility] % (700 4-21 ity of mg/patch) 00:00: [place] patch [facility] gabapentin 2017-0 Yes Take by [facility] 300 mg 4-21 mouth ity of capsule 00:00: daily. [place] [facility] lidocaine 5 2017-0 Yes Un[facility] % (700 4-21 ity of mg/patch) 00:00: [place] patch [facility] gabapentin 2017-0 Yes Take by [facility] 300 mg 4-21 mouth ity of capsule 00:00: daily. [place] [facility] lidocaine 5 2017-0 Yes Un[facility] % (700 4-21 ity of mg/patch) 00:00: [place] patch [facility] gabapentin 2017-0 Yes Take by [facility] 300 mg 4-21 mouth ity of capsule 00:00: daily. [place] [facility] lidocaine 5 2017-0 Yes Univer [facility] % (700 4-21 ity of mg/patch) 00:00: [place] patch 00 [facility] gabapentin 2017-0 Yes Take by [facility] 300 mg 4-21 mouth ity of capsule 00:00: daily. [place] [facility] lidocaine 5 2017-0 Yes Univer [...] 4-21 mouth ity of capsule 00:00: daily. [place] [facility] lidocaine 5 2017-0 Yes Un[facility] % (700 4-21 ity of mg/patch) 00:00: [place] patch [facility] gabapentin 2017-0 Yes Take by [facility] 300 mg 4-21 mouth ity of capsule 00:00: daily. [place] [facility] lidocaine 5 2017-0 Yes Un[facility] % (700 4-21 ity of mg/patch) 00:00: [place] patch [facility] gabapentin 2017-0 Yes Take by [facility] 300 mg 4-21 mouth ity of capsule 00:00: daily. [place] [facility] lidocaine 5 2017-0 Yes Un[facility] % (700 4-21 ity of mg/patch) 00:00: [place] patch [facility] gabapentin 2017-0 Yes Take by [facility] 300 mg 4-21 mouth ity of capsule 00:00: daily. [place] [facility] lidocaine 5 2017-0 Yes [facility] % (700 4-21 ity of mg/patch) 00:00: [place] patch [facility] gabapentin 2017-0 Yes Take by [facility] 300 mg 4-21 mouth ity of capsule 00:00: daily. [place] [facility] lidocaine 5 2017-0 Yes Un[facility] % (700 4-21 ity of mg/patch) 00:00: [place] patch [facility] gabapentin 2017-0 Yes Take by [facility] 300 mg 4-21 mouth ity of capsule 00:00: daily. [place] [facility] lidocaine 5 2017-0 Yes Univer [...] 4-21 mouth ity of capsule 00:00: daily. [place] [facility] lidocaine 5 2017-0 Yes [facility] % (700 4-21 ity of mg/patch) 00:00: [place] patch [facility] gabapentin 2017-0 Yes Take by [facility] 300 mg 4-21 mouth ity of capsule 00:00: daily. [place] [facility] lidocaine 5 2017-0 Yes Un[facility] % (700 4-21 ity of mg/patch) 00:00: [place] patch [facility] gabapentin 2017-0 Yes Take by [facility] 300 mg 4-21 mouth ity of capsule 00:00: daily. [place] [facility] lidocaine 5 2017-0 Yes Univer [...] 4-21 mouth ity of capsule 00:00: daily. [place] [facility] lidocaine 5 2017-0 Yes Un[facility] % (700 4-21 ity of mg/patch) 00:00: [place] patch 00 [facility] gabapentin 2017-0 Yes Take by [facility] 300 mg 4-21 mouth ity of capsule 00:00: daily. [place] [facility] lidocaine 5 2017-0 Yes Un[facility] % (700 4-21 ity of mg/patch) 00:00: [place] patch 00 [facility] gabapentin 2017-0 Yes Take by [facility] 300 mg 4-21 mouth ity of capsule 00:00: daily. [place] [facility] lidocaine 5 2017-0 Yes Un[facility] % (700 4-21 ity of mg/patch) 00:00: [place] patch [facility] gabapentin 2017-0 Yes Take by [facility] 300 mg 4-21 mouth ity of capsule 00:00: daily. [place] [facility] lidocaine 5 2017-0 Yes Un[facility] % (700 4-21 ity of mg/patch) 00:00: [place] patch [facility] gabapentin 2017-0 Yes Take by [facility] 300 mg 4-21 mouth ity of capsule 00:00: daily. [place] [facility] lidocaine 5 2017-0 Yes Univer s % (700 4-21 ity of mg/patch) 00:00: [place] patch [facility] gabapentin 2017-0 Yes Take by [facility] 300 mg 4-21 mouth ity of capsule 00:00: daily. [place] [facility] lidocaine 5 2017-0 Yes Un[facility] % (700 4-21 ity of mg/patch) 00:00: [place] patch [facility] gabapentin 2017-0 Yes Take by [facility] 300 mg 4-21 mouth ity of capsule 00:00: daily. [place] [facility] lidocaine 5 2017-0 Yes Un[facility] % (700 4-21 ity of mg/patch) 00:00: [place] patch [facility] gabapentin 2017-0 Yes Take by [facility] 300 mg 4-21 mouth ity of capsule 00:00: daily. [place] [facility] lidocaine 5 2017-0 Yes Un[facility] % (700 4-21 ity of mg/patch) 00:00: [place] patch 00 [facility] gabapentin 2017-0 Yes Take by [facility] 300 mg 4-21 mouth ity of capsule 00:00: daily. [place] [facility] lidocaine 5 2017-0 Yes Univer [...] 4-21 mouth ity of capsule 00:00: daily. [place] [facility] lidocaine 5 2017-0 Yes Un[facility] s % (700 4-21 ity of mg/patch) 00:00: [place] patch [facility] gabapentin 2017-0 Yes Take by [facility] 300 mg 4-21 mouth ity of capsule 00:00: daily. [place] [facility] lidocaine 5 2017-0 Yes Univer s % (700 4-21 ity of mg/patch) 00:00: [place] patch [facility] gabapentin 2017-0 Yes Take by [facility] 300 mg 4-21 mouth ity of capsule 00:00: daily. [place] [facility] lidocaine 5 2017-0 Yes Univer s % (700 4-21 ity of mg/patch) 00:00: [place] patch [facility] gabapentin 2017-0 Yes Take by [facility] 300 mg 4-21 mouth ity of capsule 00:00: daily. [place] [facility] lidocaine 5 2017-0 Yes Univer s % (700 4-21 ity of mg/patch) 00:00: [place] patch [facility] gabapentin 2017-0 Yes Take by [facility] 300 mg 4-21 mouth ity of capsule 00:00: daily. [place] [facility] lidocaine 5 2017-0 Yes Univer s % (700 4-21 ity of mg/patch) 00:00: [place] patch [facility] gabapentin 2017-0 Yes Take by [facility] 300 mg 4-21 mouth ity of capsule 00:00: daily. [place] [facility] lidocaine 5 2017-0 Yes Univer [...] 4-21 mouth ity of capsule 00:00: daily. [place] [facility] lidocaine 5 2017-0 Yes Univer s % (700 4-21 ity of mg/patch) 00:00: [place] patch [facility] gabapentin 2017-0 Yes Take by [facility] 300 mg 4-21 mouth ity of capsule 00:00: daily. [place] [facility] lidocaine 5 2017-0 Yes Univer s % (700 4-21 ity of mg/patch) 00:00: [place] patch [facility] gabapentin 2017-0 Yes Take by [facility] 300 mg 4-21 mouth ity of capsule 00:00: daily. [place] [facility] lidocaine 5 2017-0 Yes Univer [...] 4-21 mouth ity of capsule 00:00: daily. [place] [facility] lidocaine 5 2017-0 Yes Univer s % (700 4-21 ity of mg/patch) 00:00: [place] patch 00 [facility] gabapentin 2017-0 Yes Take by [facility] 300 mg 4-21 mouth ity of capsule 00:00: daily. [place] [facility] lidocaine 5 2017-0 Yes Univer s % (700 4-21 ity of mg/patch) 00:00: [place] patch 00 [facility] gabapentin 2017-0 Yes Take by [facility] 300 mg 4-21 mouth ity of capsule 00:00: daily. [place] [facility] lidocaine 5 2017-0 Yes Univer s % (700 4-21 ity of mg/patch) 00:00: [place] patch 00 [facility] pantoprazol 2017-0 Yes Univer s e 40 mg EC 4-14 ity of tablet 00:00: [place] [facility] pantoprazol 2017-0 Yes Univer s e 40 mg EC 4-14 ity of tablet 00:00: [place] [facility] pantoprazol 2017-0 Yes Univer s e 40 mg EC 4-14 ity of tablet 00:00: [place] [facility] pantoprazol 2017-0 Yes Univer s e 40 mg EC 4-14 ity of tablet 00:00: [place] [facility] pantoprazol 2017-0 Yes Univer s e 40 mg EC 4-14 ity of tablet 00:00: [place] [facility] pantoprazol 2017-0 Yes Univer s e 40 mg EC 4-14 ity of tablet 00:00: [place] [facility] pantoprazol 2017-0 Yes Univer s e 40 mg EC 4-14 ity of tablet 00:00: [place] [facility] pantoprazol 2017-0 Yes Univer s e 40 mg EC 4-14 ity of tablet 00:00: [place] [facility] pantoprazol 2017-0 Yes Univer s e 40 mg EC 4-14 ity of tablet 00:00: [place] [facility] pantoprazol 2017-0 Yes Univer s e 40 mg EC 4-14 ity of tablet 00:00: [place] [facility] pantoprazol 2017-0 Yes Univer s e 40 mg EC 4-14 ity of tablet 00:00: [place] [facility] pantoprazol 2017-0 Yes Univer s e 40 mg EC 4-14 ity of tablet 00:00: [place] [facility] pantoprazol 2017-0 Yes Univer s e 40 mg EC 4-14 ity of tablet 00:00: [place] [facility] pantoprazol 2017-0 Yes Univer s e 40 mg EC 4-14 ity of tablet 00:00: [place] [facility] pantoprazol 2017-0 Yes Univer s e 40 mg EC 4-14 ity of tablet 00:00: [place] [facility] pantoprazol 2017-0 Yes Univer s e 40 mg EC 4-14 ity of tablet 00:00: [place] [facility] pantoprazol 2017-0 Yes Univer s e 40 mg EC 4-14 ity of tablet 00:00: [place] [facility] pantoprazol 2017-0 Yes Univer s e 40 mg EC 4-14 ity of tablet 00:00: [place] [facility] pantoprazol 2017-0 Yes Univer s e 40 mg EC 4-14 ity of tablet 00:00: [place] [facility] pantoprazol 2017-0 Yes Univer s e 40 mg EC 4-14 ity of tablet 00:00: [place] [facility] pantoprazol 2017-0 Yes Univer s e 40 mg EC 4-14 ity of tablet 00:00: [address] pantoprazol 2017-0 Yes Univer s e 40 mg EC 4-14 ity of tablet 00:00: [address] pantoprazol 2017-0 Yes Univer s e 40 mg EC 4-14 ity of tablet 00:00: [address] pantoprazol 2017-0 Yes Univer s e 40 mg EC 4-14 ity of tablet 00:00: [place] [facility] pantoprazol 2017-0 Yes Univer s e 40 mg EC 4-14 ity of tablet 00:00: [place] [facility] pantoprazol 2017-0 Yes Univer s e 40 mg EC 4-14 ity of tablet 00:00: [place] [facility] pantoprazol 2017-0 Yes Univer s e 40 mg EC 4-14 ity of tablet 00:00: [place] [facility] pantoprazol 2017-0 Yes Univer s e 40 mg EC 4-14 ity of tablet 00:00: [place] [facility] pantoprazol 2017-0 Yes Univer s e 40 mg EC 4-14 ity of tablet 00:00: [place] [facility] pantoprazol 2017-0 Yes Univer s e 40 mg EC 4-14 ity of tablet 00:00: [place] 00 [facility] pantoprazol 2017-0 Yes Univer s e 40 mg EC 4-14 ity of tablet 00:00: [place] [facility] pantoprazol 2017-0 Yes Univer s e 40 mg EC 4-14 ity of tablet 00:00: [place] [facility] pantoprazol 2017-0 Yes Univer s e 40 mg EC 4-14 ity of tablet 00:00: [place] [facility] pantoprazol 2017-0 Yes Univer s e 40 mg EC 4-14 ity of tablet 00:00: [place] [facility] pantoprazol 2017-0 Yes Univer s e 40 mg EC 4-14 ity of tablet 00:00: [place] [facility] pantoprazol 2017-0 Yes Univer s e 40 mg EC 4-14 ity of tablet 00:00: [address] pantoprazol 2017-0 Yes Univer s e 40 mg EC 4-14 ity of tablet 00:00: [place] [facility] pantoprazol 2017-0 Yes Univer s e 40 mg EC 4-14 ity of tablet 00:00: [address] pantoprazol 2017-0 Yes Univer s e 40 mg EC 4-14 ity of tablet 00:00: [address] pantoprazol 2017-0 Yes Univer s e 40 mg EC 4-14 ity of tablet 00:00: [address] pantoprazol 2017-0 Yes Univer s e 40 mg EC 4-14 ity of tablet 00:00: [address] Branch pantoprazol 2017-0 Yes Univer s e 40 mg EC 4-14 ity of tablet 00:00: [place] [facility] pantoprazol 2017-0 Yes Univer s e 40 mg EC 4-14 ity of tablet 00:00: [place] [facility] pantoprazol 2017-0 Yes Univer s e 40 mg EC 4-14 ity of tablet 00:00: [place] [facility] pantoprazol 2017-0 Yes Univer s e 40 mg EC 4-14 ity of tablet 00:00: [place] [facility] pantoprazol 2017-0 Yes Univer s e 40 mg EC 4-14 ity of tablet 00:00: [place] [facility] pantoprazol 2017-0 Yes Univer s e 40 mg EC 4-14 ity of tablet 00:00: [place] 00 [facility] pantoprazol 2017-0 Yes Univer s e 40 mg EC 4-14 ity of tablet 00:00: [place] 00 [facility] pantoprazol 2017-0 Yes Univer s e 40 mg EC 4-14 ity of tablet 00:00: [place] [facility] pantoprazol 2017-0 Yes Univer s e 40 mg EC 4-14 ity of tablet 00:00: [place] [facility] pantoprazol 2017-0 Yes Univer s e 40 mg EC 4-14 ity of tablet 00:00: [place] [facility] pantoprazol 2017-0 Yes Univer s e 40 mg EC 4-14 ity of tablet 00:00: [place] [facility] pantoprazol 2017-0 Yes Univer s e 40 mg EC 4-14 ity of tablet 00:00: [place] [facility] pantoprazol 2017-0 Yes Univer s e 40 mg EC 4-14 ity of tablet 00:00: [place] [facility] pantoprazol 2017-0 Yes Univer s e 40 mg EC 4-14 ity of tablet 00:00: [place] [facility] pantoprazol 2017-0 Yes Univer s e 40 mg EC 4-14 ity of tablet 00:00: [place] [facility] pantoprazol 2017-0 Yes Univer s e 40 mg EC 4-14 ity of tablet 00:00: [place] [facility] pantoprazol 2017-0 Yes Univer s e 40 mg EC 4-14 ity of tablet 00:00: [place] [facility] pantoprazol 2017-0 Yes Univer s e 40 mg EC 4-14 ity of tablet 00:00: [place] [facility] pantoprazol 2017-0 Yes Univer s e 40 mg EC 4-14 ity of tablet 00:00: [place] [facility] pantoprazol 2017-0 Yes Univer s e 40 mg EC 4-14 ity of tablet 00:00: [place] [facility] pantoprazol 2017-0 Yes Univer s e 40 mg EC 4-14 ity of tablet 00:00: [place] [facility] pantoprazol 2017-0 Yes Univer s e 40 mg EC 4-14 ity of tablet 00:00: [place] [facility] pantoprazol 2017-0 Yes Univer s e 40 mg EC 4-14 ity of tablet 00:00: [place] [facility] pantoprazol 2017-0 Yes Univer s e 40 mg EC 4-14 ity of tablet 00:00: [place] 00 [facility] pantoprazol 2017-0 Yes Univer s e 40 mg EC 4-14 ity of tablet 00:00: [place] 00 [facility] pantoprazol 2017-0 Yes Univer s e 40 mg EC 4-14 ity of tablet 00:00: [place] 00 [facility] pantoprazol 2017-0 Yes Univer s e 40 mg EC 4-14 ity of tablet 00:00: [place] 00 [facility] pantoprazol 2017-0 Yes Univer s e 40 mg EC 4-14 ity of tablet 00:00: [place] 00 [facility] Branch pantoprazol 2017-0 Yes Univer s e 40 mg EC 4-14 ity of tablet 00:00: [place] 00 [facility] pantoprazol 2017-0 Yes Univer s e 40 mg EC 4-14 ity of tablet 00:00: [place] 00 [facility] pantoprazol 2017-0 Yes Univer s e 40 mg EC 4-14 ity of tablet 00:00: [place] 00 [facility] pantoprazol 2017-0 Yes Univer s e 40 mg EC 4-14 ity of tablet 00:00: [place] 00 [facility] pantoprazol 2017-0 Yes Univer s e 40 mg EC 4-14 ity of tablet 00:00: [place] 00 [facility] pantoprazol 2017-0 Yes Univer s e 40 mg EC 4-14 ity of tablet 00:00: [place] 00 [facility] pantoprazol 2017-0 Yes Univer s e 40 mg EC 4-14 ity of tablet 00:00: [place] 00 [facility] aspirin 81 2016- Yes 81mg Take 1 Unive rs mg chewable 0-26 tablet by ity of tablet 00:00: mouth 00 daily. Medical Branch aspirin 81 2016- Yes 81mg Take 1 Unive rs mg chewable 0-26 tablet by ity of tablet 00:00: mouth 00 daily. Medical Branch aspirin 81 2016- Yes 81mg Take 1 Unive rs mg chewable 0-26 tablet by ity of tablet 00:00: mouth 00 daily. Medical Branch aspirin 81 2016- Yes 81mg Take 1 Unive rs mg chewable 0-26 tablet by ity of tablet 00:00: mouth 00 daily. Medical Branch aspirin 81 2016- [...] 00 :00 daily. Medical Branch aspirin 81 2016-1 2023- No 81mg Take 1 Univ ers mg chewable 0-26 02-27 tablet by it y of tablet 00:00: 00:00 mouth [place] 00 :00 daily. Medical Branch aspirin 81 2016- 2023- No 81mg Take 1 Univ ers mg chewable 0-26 02-27 tablet by it y of tablet 00:00: 00:00 mouth [place] 00 :00 daily. Medical Branch Immunizations Ordered Filled Immunization Date Status Comments [facility] e Immunization Name Name Influenza Virus [...] 2021-03-06 Completed Universit y of Vaccine,quad 00:00:00 [place] [facility] Im,preserve Free Branch 65+ Vital Signs Vital Name Observation Time Observation Value Comments Source Systolic blood 2022-08-28 18:09:00 134 mm[Hg] Univer sity of pressure [place] [facility] [place] Diastolic blood 2022-08-28 18:09:00 72 mm[Hg] Unive rsity of pressure [facility] Heart rate 2022-08-28 18:09:00 71 /min Universi ty of [facility] Respiratory rate 2022-08-28 18:09:00 19 /min Univ ersity of [facility] Body height 2022-08-28 18:09:00 160 cm Universi ty of [facility] Body weight 2022-08-28 18:09:00 46.63 kg Universi ty of [facility] BMI 2022-08-28 18:09:00 18.21 kg/m2 Universi ty of [facility] Oxygen saturation in 2022-08-28 18:09:00 98 /min University of Arterial blood by [facility] Pulse oximetry Branch Systolic blood 2022-06-25 15:38:00 137 mm[Hg] Univer sity of pressure [facility] Diastolic blood 2022-06-25 15:38:00 46 mm[Hg] Unive rsity of pressure [facility] Heart rate 2022-06-25 15:38:00 56 /min Universi ty of [place] [facility] [place] Body temperature 2022-06-25 15:38:00 36.11 Allie Univ ersity of [facility] Respiratory rate 2022-06-25 15:38:00 17 /min Univ ersity of [facility] Body height 2022-06-25 15:38:00 160 cm Universi ty of [place] [facility] [place] Body weight 2022-06-25 15:38:00 46.494 kg Universi ty of [facility] BMI 2022-06-25 15:38:00 18.16 kg/m2 Universi ty of [facility] Branch Systolic blood 2022-06-12 13:39:00 124 mm[Hg] Univer sity of pressure [facility] Diastolic blood 2022-06-12 13:39:00 56 mm[Hg] Unive rsity of pressure [facility] Heart rate 2022-06-12 13:39:00 74 /min [facility]i ty [facility] [place] [facility] Body temperature 2022-06-12 13:39:00 36.67 Allie Univ ersity of [place] [facility] Respiratory rate 2022-06-12 13:39:00 18 /min Univ ersity of [place] [facility] Oxygen saturation in 2022-06-12 13:39:00 100 /min University of Arterial blood by [place] [facility] Pulse oximetry Branch Body weight 2022-06-12 10:12:00 46.494 kg Universi ty of [place] [facility] BMI 2022-06-12 10:12:00 18.16 kg/m2 [facility] [place] [facility] Body height 2022-06-06 23:33:00 160 cm Universi ty [facility] [place] [facility] HEIGHT 2022-05-18 09:00:00 160 cm WEIGHT 2022-05-18 09:00:00 47.9 kg HEIGHT 2022-05-18 09:00:00 160 cm WEIGHT 2022-05-18 09:00:00 47.9 kg Systolic blood 2022-05-10 17:56:00 153 mm[Hg] Univer sity of pressure [place] [facility] Diastolic blood 2022-05-10 17:56:00 47 mm[Hg] Unive rsity of pressure [place] [facility] Heart rate 2022-05-10 17:54:00 68 /min [facility]i ty [facility] [place] [facility] Respiratory rate 2022-05-10 17:54:00 20 /min Univ ersity of [place] [facility] Body height 2022-05-10 17:54:00 160 cm Universi ty [facility] [place] [facility] Body weight 2022-05-10 17:54:00 46.085 kg Universi ty of [place] [facility] BMI 2022-05-10 17:54:00 18.00 kg/m2 [facility]i ty [facility] [place] [facility] Oxygen saturation in 2022-05-10 17:54:00 99 /min University of Arterial blood by [place] [facility] Pulse oximetry Branch Systolic blood 2022-02-28 19:10:00 161 mm[Hg] Univer sity of pressure [place] [facility] Diastolic blood 2022-02-28 19:10:00 59 mm[Hg] Unive rsity of pressure [place] [facility] Heart rate 2022-02-28 19:10:00 50 /min Universi ty of [place] [facility] Oxygen saturation in 2022-02-28 19:10:00 100 /min University of Arterial blood by [place] [address] [facility] Pulse oximetry Branch Body temperature 2022-02-28 19:08:00 36.11 Allie Univ ersity of [place] [facility] Respiratory rate 2022-02-28 19:08:00 16 /min Univ ersity of [place] [facility] Body weight 2022-02-28 19:08:00 49.125 kg Universi ty [facility] [place] [facility] BMI 2022-02-28 19:08:00 19.18 kg/m2 [facility] [place] [facility] Systolic blood 2022-06-25 15:38:00 137 mm[Hg] Univer sity of pressure [place] [facility] Diastolic blood 2022-06-25 15:38:00 46 mm[Hg] Unive rsity of pressure [place] [facility] Heart rate 2022-06-25 15:38:00 56 /min Universi ty [facility] [place] [facility] Body temperature 2022-06-25 15:38:00 36.11 Allie Univ ersity of [place] [facility] Respiratory rate 2022-06-25 15:38:00 17 /min Univ ersity of [place] [facility] Body height 2022-06-25 15:38:00 160 cm Universi ty [facility] [place] [facility] Body weight 2022-06-25 15:38:00 46.494 kg Universi ty [facility] [place] [facility] BMI 2022-06-25 15:38:00 18.16 kg/m2 [facility] ty [facility] [place] [facility] Systolic blood 2022-06-12 13:39:00 124 mm[Hg] Univer sity of pressure [place] [facility] Diastolic blood 2022-06-12 13:39:00 56 mm[Hg] Unive rsity of pressure [place] [facility] Heart rate 2022-06-12 13:39:00 74 /min Universi ty [facility] [place] [facility] Body temperature 2022-06-12 13:39:00 36.67 Allie Univ ersity of [place] [facility] Respiratory rate 2022-06-12 13:39:00 18 /min Univ ersity of [place] [facility] Oxygen saturation in 2022-06-12 13:39:00 100 /min University of Arterial blood by [place] [address] [facility] Pulse oximetry Branch Body weight 2022-06-12 10:12:00 46.494 kg Universi ty of [place] [facility] BMI 2022-06-12 10:12:00 18.16 kg/m2 [facility] Body height 2022-06-06 23:33:00 160 cm [facility] Systolic blood 2022-05-27 16:06:00 109 mm[Hg] [facility] Diastolic blood 2022-05-27 16:06:00 53 mm[Hg] [facility] Heart rate 2022-05-27 16:03:00 69 /min [facility] Body temperature 2022-05-27 16:03:00 37.11 Allie [facility] Respiratory rate 2022-05-27 16:03:00 17 /min [facility] Oxygen saturation in 2022-05-27 16:03:00 96 /min [facility] Arterial blood by Medical Ce nter Pulse oximetry Systolic blood 2022-05-24 07:00:00 117 mm[Hg] [facility] Diastolic blood 2022-05-24 07:00:00 73 mm[Hg] [facility] Heart rate 2022-05-24 07:00:00 81 /min [facility] Body temperature 2022-05-24 07:00:00 36.67 Allie [facility] Respiratory rate 2022-05-24 07:00:00 15 /min [facility] Oxygen saturation in 2022-05-24 07:00:00 96 /min [facility] Arterial blood by Medical Ce nter Pulse oximetry Systolic blood 2022-05-22 08:00:00 126 mm[Hg] [facility] Diastolic blood 2022-05-22 08:00:00 62 mm[Hg] [facility] Heart rate 2022-05-22 08:00:00 63 /min [facility] Respiratory rate 2022-05-22 08:00:00 24 /min [facility] Oxygen saturation in 2022-05-22 08:00:00 98 /min [facility] Arterial blood by Medical Ce nter Pulse oximetry Body temperature 2022-05-21 16:00:00 36.67 Allie [facility] Systolic blood 2022-05-21 08:23:00 127 mm[Hg] [facility] Diastolic blood 2022-05-21 08:23:00 65 mm[Hg] [facility] Heart rate 2022-05-21 07:30:00 76 /min [facility] Respiratory rate 2022-05-21 07:30:00 17 /min [facility] Oxygen saturation in 2022-05-21 07:30:00 98 /min [facility] Arterial blood by Medical Ce nter Pulse oximetry Body temperature 2022-05-21 00:00:00 36.17 Allie [facility] Body height 2022-05-18 09:00:00 160 cm [facility] Body weight 2022-05-18 09:00:00 47.9 kg [facility] BMI 2022-05-18 09:00:00 18.71 kg/m2 [facility] Procedures Procedure Date / Time Performing Clinician Source Performed XR HIPS 2 VW RIGHT 2022-08-01 15:29:05 Joseph Cortes [facility] CONSENT/REFUSAL FOR 2022-08-01 15:11:45 Doctor Unassigned, [facility] Name Medical Branch ASSIGNMENT OF BENEFITS 2022-08-01 15:11:28 Doctor Unassigned, No [facility] PROTHROMBIN TIME / INR 2022-07-10 14:51:00 [place] [facility] CONSENT/REFUSAL FOR 2022-07-10 14:37:14 Doctor Unassigned, No [facility] [place] DIAGNOSIS AND TREATMENT [facility] Medical Branch CONSENT/REFUSAL FOR 2022-07-10 14:37:14 Doctor Unassigned, No [facility] [place] DIAGNOSIS AND TREATMENT Name Medical Branch ASSIGNMENT OF BENEFITS 2022-07-10 14:36:56 Doctor Unassigned, No [facility] ASSIGNMENT OF BENEFITS 2022-07-10 14:36:56 Doctor Unassigned, No [facility] PROTHROMBIN TIME / INR 2022-06-25 15:22:00 [place] Dan [facility] PROTHROMBIN TIME / INR 2022-06-12 08:34:00 [facility] 2022-06-12 08:34:00 Leslie Espitia [facility] BASIC METABOLIC PANEL 2022-06-12 08:34:00 Leslie Espitia [facility] (NA, K, CL, CO2, GLUCOSE, Medica l Branch BUN, CREATININE, CA) CBC WITH DIFF 2022-06-12 08:34:00 Leslie Espitia [facility] ACTIVATED PARTIAL 2022-06-12 08:34:00 Demond [facility] MAGNESIUM 2022-06-12 08:34:00 Leslie Espitia [facility] BASIC METABOLIC PANEL 2022-06-12 08:34:00 Leslie Espitia Nilson [facility] (NA, K, CL, CO2, GLUCOSE, Medica l Branch BUN, CREATININE, CA) CBC WITH DIFF 2022-06-12 08:34:00 Leslie Espitia [facility] PROTHROMBIN TIME / INR 2022-06-12 08:34:00 Mariia Cardona Un [facility] ACTIVATED PARTIAL 2022-06-12 08:34:00 Demond [facility] ACTIVATED PARTIAL 2022-06-12 02:29:00 Demond [facility] ACTIVATED PARTIAL 2022-06-12 02:29:00 Demond [facility] EXTRA TUBE LT. GREEN 2022-06-12 00:00:00 Mariia Cardona [facility] EXTRA TUBE LT. GREEN 2022-06-12 00:00:00 Mariia Cardona [facility] BLOOD CULTURE SCREEN 2022-06-11 19:48:00 Leslie [...] Resources TRANSESOPHAGEAL ECHO 2022-06-11 15:58:00 Siddharth Chicas [facility] ([facility]) COMPLETE W/ DOPPLER Nando Rios Medica l Branch AND COLOR TRANSESOPHAGEAL ECHO 2022-06-11 15:58:00 Juan Francisco [facility] ([place]) COMPLETE W/ DOPPLER [facility] AND COLOR ACTIVATED PARTIAL 2022-06-11 14:52:00 Demond [facility] ACTIVATED PARTIAL 2022-06-11 14:52:00 Demond [facility] PROTHROMBIN TIME / INR 2022-06-11 08:57:00 Mariia Cardona [facility] BASIC METABOLIC PANEL 2022-06-11 08:57:00 Les Ortega [facility] (NA, K, CL, CO2, GLUCOSE, Medica l Branch BUN, CREATININE, CA) MAGNESIUM 2022-06-11 08:57:00 Les Ortega [facility] ACTIVATED PARTIAL 2022-06-11 08:57:00 Demond [facility] MAGNESIUM 2022-06-11 08:57:00 Les Ortega [facility] BASIC METABOLIC PANEL 2022-06-11 08:57:00 Les Ortega [facility] (NA, K, CL, CO2, GLUCOSE, Medica l Branch BUN, CREATININE, CA) PROTHROMBIN TIME / INR 2022-06-11 08:57:00 Mariia Cardona Un [facility] ACTIVATED PARTIAL 2022-06-11 08:57:00 Demond [facility] HB ECG ROUTINE & RHYTHM 2022-06-11 07:47:48 Les Ortega [facility] ACTIVATED PARTIAL 2022-06-10 20:19:00 Demond [facility] ACTIVATED PARTIAL 2022-06-10 20:19:00 Shawanda Lagos [facility] HB ECG ROUTINE & RHYTHM 2022-06-10 16:35:44 Jordan [facility] HB ECG ROUTINE & RHYTHM 2022-06-10 16:35:44 [facility] MAGNESIUM 2022-06-10 08:20:00 Leslie Espitia [facility] BASIC METABOLIC PANEL 2022-06-10 08:20:00 Leslie Espitia [facility] (NA, K, CL, CO2, GLUCOSE, Medica l Branch BUN, CREATININE, CA) CBC WITH DIFF 2022-06-10 08:20:00 Leslie Espitia [facility] PROTHROMBIN TIME / INR 2022-06-10 08:20:00 Leslie Espitia [facility] ACTIVATED PARTIAL 2022-06-10 08:20:00 Demond [facility] MAGNESIUM 2022-06-10 08:20:00 Leslie Espitia [facility] BASIC METABOLIC PANEL 2022-06-10 08:20:00 Leslie Espitia [facility] (NA, K, CL, CO2, GLUCOSE, Medica l Branch BUN, CREATININE, CA) CBC WITH DIFF 2022-06-10 08:20:00 Leslie Espitia [facility] PROTHROMBIN TIME / INR 2022-06-10 08:20:00 Leslie Espitia [facility] ACTIVATED PARTIAL 2022-06-10 08:20:00 Demond [facility] EKG-12 LEAD 2022-06-10 04:08:10 Rebeca Holcomb [facility] ACTIVATED PARTIAL 2022-06-09 23:33:00 Demond [facility] ACTIVATED PARTIAL 2022-06-09 23:33:00 Demond [facility] ACTIVATED PARTIAL 2022-06-09 22:22:00 Demond [facility] ACTIVATED PARTIAL 2022-06-09 22:22:00 Demond [facility] BASIC METABOLIC PANEL 2022-06-09 20:19:00 [facility], [facility], CL, CO2, GLUCOSE, Medica l Branch BUN, CREATININE, CA) BASIC METABOLIC PANEL 2022-06-09 20:19:[facility] ([facility], K, CL, CO2, GLUCOSE, Medica l Branch BUN, CREATININE, CA) HB ECG ROUTINE & RHYTHM 2022-06-09 16:45:40 Demond [facility] HB ECG ROUTINE & RHYTHM 2022-06-09 16:45:[facility] 2022-06-09 10:03:00 Omkar eda [facility] BASIC METABOLIC PANEL 2022-06-09 10:03:00 Leslie Espitia [facility] (NA, K, CL, CO2, GLUCOSE, Medica l Branch BUN, CREATININE, CA) CBC WITH DIFF 2022-06-09 10:03:00 Omkar eda [facility] PROTHROMBIN TIME / INR 2022-06-09 10:03:00 Mariia Cardona [facility] MAGNESIUM 2022-06-09 10:03:00 Leslie Espitia [facility] BASIC METABOLIC PANEL 2022-06-09 10:03:00 Leslie Espitia [facility] (NA, K, CL, CO2, GLUCOSE, Medica l Branch BUN, CREATININE, CA) CBC WITH DIFF 2022-06-09 10:03:00 Omkar [facility] PROTHROMBIN TIME / INR 2022-06-09 10:03:00 Mariia Cardona [facility] EKG-12 LEAD 2022-06-09 04:12:20 Mariia Cardona [facility] EKG-12 LEAD 2022-06-09 04:12:20 Kirk Connell [facility] PROTHROMBIN TIME / INR 2022-06-08 17:35:00 Leslei Espitia [facility] PROTHROMBIN TIME / INR 2022-06-08 17:35:00 Leslie Espitia [facility] EKG-12 LEAD 2022-06-08 17:18:35 Kirk Hemlevi [facility] EKG-12 LEAD 2022-06-08 17:18:35 Kirk Hemlevi [facility] MAGNESIUM 2022-06-08 10:46:00 Leslie Espitia [facility] BASIC METABOLIC PANEL 2022-06-08 10:46:00 Leslie Espitia [facility] (NA, K, CL, CO2, GLUCOSE, Medica l Branch BUN, CREATININE, CA) CBC WITH DIFF 2022-06-08 10:46:00 Leslie Espitia [facility] MAGNESIUM 2022-06-08 10:46:00 Leslie Espitia [facility] BASIC METABOLIC PANEL 2022-06-08 10:46:00 Leslie Espitia [facility] (NA, K, CL, CO2, GLUCOSE, Medica l Branch BUN, CREATININE, CA) CBC WITH DIFF 2022-06-08 10:46:00 Leslie Espitia [facility] EKG-12 LEAD 2022-06-08 03:55:51 Kirk Hemlevi [facility] EKG-12 LEAD 2022-06-08 03:55:51 Kirk Hemlevi [facility] TRANSTHORACIC ECHO (TTE) 2022-06-07 17:56:10 Kirk Connell [facility] TRANSTHORACIC ECHO (TTE) 2022-06-07 17:56:10 Kirk Connell [facility] HB ECG ROUTINE & RHYTHM 2022-06-07 15:36:46 Leslie Espitia [facility] HB ECG ROUTINE & RHYTHM 2022-06-07 15:36:46 Leslie Espitia [facility] URINE DRUG (LCMSMS) - 2022-06-07 15:01:00 Opal Yen [facility] COMPREHENSIVE DRUG [facility] Medical Branch URINE DRUG (LCMSMS) - 2022-06-07 15:01:00 Opal Yen [facility] COMPREHENSIVE DRUG PANEL Medical Branch CBC WITH DIFF 2022-06-07 10:51:00 Opal Yen [facility] BASIC METABOLIC PANEL 2022-06-07 10:51:00 Opal Yen [facility] sity [facility] (NA, K, CL, CO2, GLUCOSE, Medica l Branch BUN, CREATININE, CA) IRON PANEL 2022-06-07 10:51:00 Opal Yen [facility] BASIC METABOLIC PANEL 2022-06-07 10:51:00 Opal Yen [facility] sity [facility] (NA, K, CL, CO2, GLUCOSE, Medica l Branch BUN, CREATININE, CA) IRON PANEL 2022-06-07 10:51:00 Opal Yen [facility] CBC WITH DIFF 2022-06-07 10:51:00 Opal Yen [facility] BASIC METABOLIC PANEL 2022-06-07 02:29:00 Opal Yen [facility] (NA, K, CL, CO2, GLUCOSE, Medica l Branch BUN, CREATININE, CA) HEPATIC FUNCTION PANEL 2022-06-07 02:29:00 Opal Yen [facility] ([id number]) ([facility] T,BU/BC,ALT,AST,ALK PHOS) MAGNESIUM 2022-06-07 02:29:00 Opal Yen [facility] FOLATE 2022-06-07 02:29:00 Opal Yen [facility] MAGNESIUM 2022-06-07 02:29:00 Opal Yen [facility] FOLATE 2022-06-07 02:29:00 Opal Yen [facility] HEPATIC FUNCTION PANEL 2022-06-07 02:29:00 Opal Yen [facility] ([id number]) (ALB,T.PRO,BILI Medical Branch T,BU/BC,ALT,AST,ALK PHOS) BASIC METABOLIC PANEL 2022-06-07 02:29:00 Opal Yen [facility] (NA, K, CL, CO2, GLUCOSE, Medica l Branch BUN, CREATININE, CA) HB ECG ROUTINE & RHYTHM 2022-06-07 00:50:00 Opal Yen [facility] PROTHROMBIN TIME / INR 2022-06-07 00:33:00 [facility] ACTIVATED PARTIAL 2022-06-07 00:33:00 Opal Yen [facility] CBC WITH DIFF 2022-06-07 00:33:00 Opal Yen [facility] FERRITIN SERUM 2022-06-07 00:33:00 Farshad Opal Jared [facility] VITAMIN B12, LEVEL 2022-06-07 00:33:00 Opal Yen [facility] FERRITIN SERUM 2022-06-07 00:33:00 Opal Yen [facility] VITAMIN B12, LEVEL 2022-06-07 00:33:00 Opal Yen [facility] CBC WITH DIFF 2022-06-07 00:33:00 Opal Yen [facility] PROTHROMBIN TIME / INR 2022-06-07 00:33:00 Opal [facility] ACTIVATED PARTIAL 2022-06-07 00:33:00 Opal Yen [facility] PROTHROMBIN TIME / INR 2022-06-06 16:10:00 [place] Dan [facility] HOSPITAL ADMISSION 2022-06-06 06:01:00 Doctor Unassigned, No Uni versity of [facility] CBC W/PLT COUNT & AUTO 2022-05-27 04:37:00 Katarina Cabrera [facility] PROTHROMBIN TIME/INR 2022-05-27 04:37:00 Katarina Cabrera [facility] MAGNESIUM 2022-05-27 04:37:00 Meaghan [place] [facility] BASIC METABOLIC PANEL 2022-05-27 04:37:00 Meaghan [place] [facility] CBC W/PLT COUNT & AUTO 2022-05-27 04:37:00 Rick Katarian [facility] Center APTT 2022-05-26 09:28:00 Efrain [facility] CBC W/PLT COUNT & AUTO 2022-05-26 06:27:00 [facility] PROTHROMBIN TIME/INR 2022-05-26 06:27:00 Katarina Cabrera [facility] MAGNESIUM 2022-05-26 06:27:00 Meaghan [place] [facility] BASIC METABOLIC PANEL 2022-05-26 06:27:00 Meaghan [place] [facility] APTT 2022-05-26 06:27:00 Efrain [facility] CBC W/PLT COUNT & AUTO 2022-05-26 06:27:00 Katarina Cabrera [facility] APTT 2022-05-26 00:28:00 Efrain [facility] APTT 2022-05-25 22:25:00 Efrain [facility] APTT 2022-05-25 14:41:00 Efrain [facility] APTT 2022-05-25 12:13:00 Efrain [facility] BASIC METABOLIC PANEL 2022-05-25 07:29:00 Robert, [facility] MAGNESIUM 2022-05-25 07:29:00 Robert, [facility] ECG 12-LEAD 2022-05-25 06:42:59 Robert, [facility] ECG 12-LEAD 2022-05-25 06:42:59 Unknown, H[facility] APTT 2022-05-25 05:57:00 Efrain [facility] APTT 2022-05-25 04:47:00 Efrain, [facility] CBC W/PLT COUNT & AUTO 2022-05-25 03:20:00 Rick, [facility] PROTHROMBIN TIME/INR 2022-05-25 03:20:00 Rick, [facility] APTT 2022-05-25 03:20:00 Meaghan [place] Melba [facility] CBC W/PLT COUNT & AUTO 2022-05-25 03:20:00 Rick, [facility] APTT 2022-05-24 20:02:00 Tarrs, [facility] APTT 2022-05-24 17:36:00 Tarrs, [facility] APTT 2022-05-24 10:31:00 Rick, [facility] APTT 2022-05-24 03:41:00 Tarrs, [facility] APTT 2022-05-24 01:14:00 Efrain, [facility] CBC W/PLT COUNT & AUTO 2022-05-24 01:14:00 Rick, [facility] BASIC METABOLIC PANEL 2022-05-24 01:14:00 Rick, [facility] MAGNESIUM 2022-05-24 01:14:00 Rick, [facility] PHOSPHORUS 2022-05-24 01:14:00 Rick, [facility] PROTHROMBIN TIME/INR 2022-05-24 01:14:00 Rick, [facility] CBC W/PLT COUNT & AUTO 2022-05-24 01:14:00 Rick, [facility] APTT 2022-05-23 18:18:00 Franc [facility] APTT 2022-05-23 16:11:00 Franc [facility] APTT 2022-05-23 08:24:00 Franc Pagan [facility] CBC W/PLT COUNT & AUTO 2022-05-23 04:23:00 Rick, [facility] BASIC METABOLIC PANEL 2022-05-23 04:23:00 Rick, [facility] MAGNESIUM 2022-05-23 04:23:00 Rick, [facility] PHOSPHORUS 2022-05-23 04:23:00 Rick, [facility] PROTHROMBIN TIME/INR 2022-05-23 04:23:00 Rick, [facility] APTT 2022-05-23 04:23:00 Tarrs [facility] CBC W/PLT COUNT & AUTO 2022-05-23 04:23:00 Rick, [facility] APTT 2022-05-22 20:49:00 Tarrs [facility] HEMOGLOBIN AND HEMATOCRIT 2022-05-22 17:54:00 Rick, [facility] APTT 2022-05-22 13:59:00 Tarrs, [facility] CBC W/PLT COUNT & AUTO 2022-05-22 02:47:00 Rick, [facility] BASIC METABOLIC PANEL 2022-05-22 02:47:00 Rick, [facility] MAGNESIUM 2022-05-22 02:47:00 Rick, [facility] PHOSPHORUS 2022-05-22 02:47:00 Rick, [facility] PROTHROMBIN TIME/INR 2022-05-22 02:47:00 Rick, [facility] APTT 2022-05-22 02:47:00 [facility] CBC W/PLT COUNT & AUTO 2022-05-22 02:47:00 Rick, [facility] PREPARE RBC 2022-05-21 23:54:00 Vinayak Cook [facility] HEMOGLOBIN AND HEMATOCRIT 2022-05-21 21:35:00 Rick, [facility] PROTHROMBIN TIME/INR 2022-05-21 14:45:00 Rick, [facility] APTT 2022-05-21 14:45:00 Efrain [facility] 2D ECHO W/ DOPPLER 2022-05-21 13:06:46 Vitaly Flores [facility] (CW/PW/COLOR) Williams HEMOGLOBIN AND HEMATOCRIT 2022-05-21 12:50:00 Rick [facility] TSH/FREE T4 IF INDICATED 2022-05-21 12:50:00 Efrain [facility] APTT 2022-05-21 08:34:00 Efrain [facility] CBC W/PLT COUNT & AUTO 2022-05-21 05:00:[address] [facility] BASIC METABOLIC PANEL 2022-05-21 05:00:00 Rick [facility] MAGNESIUM 2022-05-21 05:00:00 Rick [facility] PHOSPHORUS 2022-05-21 05:00:00 Rick, [facility] CBC W/PLT COUNT & AUTO 2022-05-21 05:00:[address] [facility] PROTHROMBIN TIME/INR 2022-05-21 01:15:00 Rick, [facility] APTT 2022-05-21 01:15:00 Efrain [facility] HEMOGLOBIN AND HEMATOCRIT 2022-05-20 20:25:00 Rick, [facility] PROTHROMBIN TIME/INR 2022-05-20 17:07:00 Rick, [facility] APTT 2022-05-20 17:07:00 Shadi Church [facility] HEMOGLOBIN AND HEMATOCRIT 2022-05-20 13:03:00 Rick, [facility] APTT 2022-05-20 13:02:00 Shadi Church [facility] Emilio Center TRANSFUSE LEUKO-REDUCED 2022-05-20 08:38:00 Damir Joyce [facility] RED BLOOD CELLS Center PREPARE RBC 2022-05-20 08:19:00 Vinayak Cook [facility] APTT 2022-05-20 05:03:00 [facility] W/[facility]T [facility] & AUTO 2022-05-20 03:36:00 Rick, [facility] DIFFERENTIAL Williams BASIC METABOLIC PANEL 2022-05-20 03:36:00 Rick, [facility] MAGNESIUM 2022-05-20 03:36:00 Rick, [facility] PHOSPHORUS 2022-05-20 03:36:00 Rick, [facility] PROTHROMBIN TIME/INR 2022-05-20 03:36:00 Rick, [facility] CBC W/PLT COUNT & AUTO 2022-05-20 03:36:00 Rick, [facility] APTT 2022-05-19 22:59:00 Efrain [facility] HEMOGLOBIN AND HEMATOCRIT 2022-05-19 21:17:00 Rick [facility] PROTHROMBIN TIME/INR 2022-05-19 17:05:00 Rick, [facility] APTT 2022-05-19 17:05:00 Efrain [facility] HEMOGLOBIN AND HEMATOCRIT 2022-05-19 12:11:00 Rick [facility] PROTHROMBIN TIME/INR 2022-05-19 12:11:00 Efrain [facility] ECG 12-LEAD 2022-05-19 11:39:33 Vitaly Flores [facility] ECG 12-LEAD 2022-05-19 11:39:33 Unknown, Hl7 [facility] POCT-GLUCOSE METER 2022-05-19 05:28:00 Shadi Church [facility] Emilio Center CBC W/PLT COUNT & AUTO 2022-05-19 03:08:00 Rick, [facility] DIFFERENTIAL Center CBC W/PLT COUNT & AUTO 2022-05-19 03:08:00 Rick, [facility] DIFFERENTIAL Williams BASIC METABOLIC PANEL 2022-05-19 03:07:00 Rick, [facility] MAGNESIUM 2022-05-19 03:07:00 Rick, [facility] PHOSPHORUS 2022-05-19 03:07:00 Rick, [facility] PROTHROMBIN TIME/INR 2022-05-19 03:07:00 Rick, [facility] POCT-GLUCOSE METER 2022-05-18 23:02:00 Adhi [facility] ECG 12-LEAD 2022-05-18 21:08:01 [facility] 12-LEAD 2022-05-18 21:08:01 Unknown, Hl7 [facility] BUN AND CREATININE 2022-05-18 20:38:00 [facility] W/RATIO [facility] POTASSIUM 2022-05-18 20:38:00 [facility] MAGNESIUM 2022-05-18 20:38:00 [facility] HEMOGLOBIN AND HEMATOCRIT 2022-05-18 20:01:00 Katarina Cabrera [facility] POCT-GLUCOSE METER 2022-05-18 18:56:00 Adhdanii Vinayaklake Evans [facility] CTA ABDOMEN & PELVIS 2022-05-18 17:42:00 Rick [facility] URINALYSIS W/ REFLEX 2022-05-18 15:23:[address] [facility] URINE CULTURE Center PROTHROMBIN TIME/INR 2022-05-18 15:23:00 Rick, [facility] HIGH SENSITIVITY TROPONIN 2022-05-18 15:23:00 Rick [facility] URINE CULTURE 2022-05-18 15:23:00 Rick [facility] CBC (HEMOGRAM ONLY) 2022-05-18 13:05:00 Rick [facility] CALCIUM, IONIZED 2022-05-18 13:05:00 Rick [facility] POCT-GLUCOSE METER 2022-05-18 12:55:00 Sean Graham [facility] ABORH, MANUAL 2022-05-18 11:55:00 Floridalma Monsalve [facility] TYPE AND SCREEN, 2022-05-18 11:02:00 Rick, [facility] AUTOMATED Williams COMPREHENSIVE METABOLIC 2022-05-18 11:01:[address] [facility] PANEL Center MAGNESIUM 2022-05-18 11:01:00 Rick [facility] PHOSPHORUS 2022-05-18 11:01:00 Rick, [facility] LACTIC ACID, VENOUS 2022-05-18 11:01:00 Rick [facility] LIPASE 2022-05-18 11:01:00 Rick, [facility] B-TYPE NATRIURETIC FACTOR 2022-05-18 11:01:00 Rick [facility] ([facility]) Williams PT/APTT 2022-05-18 11:00:00 Rick, [facility] FIBRINOGEN 2022-05-18 11:00:00 Rick, [facility] ECG 12-LEAD 2022-05-18 10:34:14 Rick, [facility] ECG 12-LEAD 2022-05-18 10:34:14 Unknown, Hl7 Doctor [facility] HB ECG ROUTINE & RHYTHM 2022-05-10 17:51:31 Wayne Rabago [facility] PROTHROMBIN TIME / INR 2022-05-09 16:24:00 [place] Dan [facility] Medical Branch CONSENT/REFUSAL FOR 2022-05-09 16:13:00 Doctor Unassigned, No [facility] [place] [facility]AT[facility] Name Medical Branch ASSIGNMENT OF BENEFITS 2022-05-09 16:12:36 Doctor Unassigned, No [facility] Medical Branch ASSIGNMENT OF BENEFITS 2022-05-09 16:12:36 Doctor Unassigned, No [facility] Medical Branch PROTHROMBIN TIME / INR 2022-04-11 15:46:00 [place] Dan [facility] Medical Branch CONSENT/REFUSAL FOR 2022-04-11 15:36:05 Doctor Unassigned, No [facility] [place] [facility]REAT[facility] Name Medical Branch ASSIGNMENT OF BENEFITS 2022-04-11 15:35:52 Doctor Unassigned, No [facility] Medical Branch ASSIGNMENT OF BENEFITS 2022-04-11 15:35:52 Doctor Unassigned, No [facility] Medical Branch MEDICATION CORRESPONDENCE 2022-03-18 06:01:00 Doctor Unassigned, No [facility] Medical Branch PROTHROMBIN TIME / INR 2022-03-14 15:29:00 [place] [facility] CONSENT/REFUSAL FOR 2022-03-14 15:15:12 Doctor Unassigned, No [facility] [place] DIAGNOS[facility] TREATMENT Name Medical Branch ASSIGNMENT OF BENEFITS 2022-03-14 15:15:00 Doctor Unassigned, No [facility] Medical Branch ASSIGNMENT OF BENEFITS 2022-03-14 15:15:00 Doctor Unassigned, No [facility] Medical Branch CONSENT/REFUSAL FOR 2022-02-28 18:42:52 Doctor Unassigned, No [facility] [place] DI[facility]NOSIS [facility] TREATMENT Name Medical Branch CONSENT/REFUSAL FOR 2022-02-14 14:32:17 Doctor Unassigned, No [facility] [place] DIAGNOSIS AND TREATMENT Name Medical Branch ASSIGNMENT OF BENEFITS 2022-02-14 14:32:04 Doctor Unassigned, No [facility] Medical Branch ASSIGNMENT OF BENEFITS 2021-12-14 17:04:14 Doctor Unassigned, No [facility] Medical Branch HOSPITAL ADMISSION 2021-11-23 05:01:00 Doctor Unassigned, No [facility] [place] Plan of Care Planned Activity Planned Date [facility]1 [facility] 2)] Future Scheduled [...] breast Medical C enter (procedure) [code = 132503159] Future Scheduled 1953 CT Colonography (combo) [facility] 00:00:00 [code = CT Colonography [facility] (combo)] Future Scheduled 1953 Screening for malignant [facility] Test 00:00:00 neoplasm of colon Medical Ce nter (procedure) [code = 939834717] Future Scheduled 1953 Screening for malignant [facility] Test 00:00:00 neoplasm of colon Medical Ce nter (procedure) [code = 185692777] Future Scheduled 1953 DXA SCAN [code = DXA [facility] 00:00:00 SCAN] [facility] Future Scheduled 1953 Screening for malignant [facility] Test 00:00:00 neoplasm of colon Medical Ce nter (procedure) [code = 357664061] Future Scheduled 1953 Screening for malignant [facility] Test 00:00:00 neoplasm of colon Medical Ce nter (procedure) [code = 495344742] Future Scheduled 1953 Sigmoidoscopy [facility]code = [facility] Scre[facility] Test 00:00:00 neoplasm of breast Medical C enter (procedure) [code = 337426924] Future Scheduled 1953 CT Colonography (combo) [facility] Test 00:00:00 [code = CT Colonography [facility] (combo)] Future Scheduled 1953 Screening for malignant [facility] Test 00:00:00 neoplasm of colon Medical Ce nter (procedure) [code = 631220010] Future Scheduled 1953 Screening for malignant [facility] Test 00:00:00 neoplasm of colon Medical Ce nter (procedure) [code = 110435818] Future Scheduled 1953 DXA SCAN [code = DXA [facility] 00:00:00 SCAN] [facility] Future Scheduled 1953 Screening for malignant [facility] Test 00:00:00 neoplasm of colon Medical Ce nter (procedure) [code = 697015717] Future Scheduled 1953 Screening for malignant [facility] 00:00:00 neoplasm of colon Medical Ce nter (procedure) [code = 746851837] Future Scheduled 1953 Sigmoidoscopy [facility]code = [facility] Screening for malignant [facility] 00:00:00 neoplasm of breast Medical C enter (procedure) [code = 017191097] Future Scheduled 1953 CT Colonography (combo) [facility] 00:00:00 [code = CT Colonography [facility] (combo)] Future Scheduled 1953 Screening for malignant [facility] Test 00:00:00 neoplasm of colon Medical Ce nter (procedure) [code = 798766667] Future Scheduled 1953 Screening for malignant [facility] Test 00:00:00 neoplasm of colon Medical Ce nter (procedure) [code = 292960274] Future Scheduled 1953 DXA SCAN [code = DXA [facility] Test 00:00:00 SCAN] [facility] Future Scheduled 1953 Screening for malignant [facility] Test 00:00:00 neoplasm of colon Medical Ce nter (procedure) [code = 451559412] Future Scheduled 1953 Screening for malignant [facility] 00:00:00 neoplasm of colon Medical Ce nter (procedure) [code = 987457350] Future Scheduled 1953 Sigmoidoscopy [facility]code = [facility] Future Scheduled 1953 Screening for malignant [facility] Test 00:00:00 neoplasm of breast Medical C enter (procedure) [code = 166874648] Future Scheduled 1953 CT Colonography (combo) [facility] Test 00:00:00 [code = CT Colonography [facility] (combo)] Future Scheduled 1953 Screening for malignant [facility] Test 00:00:00 neoplasm of colon Medical Ce nter (procedure) [code = 823047745] Future Scheduled 1953 Screening for malignant [facility] Test 00:00:00 neoplasm of colon Medical Ce nter (procedure) [code = 532966075] Future Scheduled 1953 DXA SCAN [code = DXA [facility] 00:00:00 SCAN] [facility] Future Scheduled 1953 Screening for malignant [facility] Test 00:00:00 neoplasm of colon Medical Ce nter (procedure) [code = 261362107] Future Scheduled 1953 Screening for malignant [facility] 00:00:00 neoplasm of colon Medical Ce nter (procedure) [code = 092088463] Future Scheduled 1953 Sigmoidoscopy [facility]code = [facility]] [facility] Future Scheduled 1953 Screening for malignant [facility] 00:00:00 neoplasm of breast Medical C enter (procedure) [code = 331075161] Future Scheduled 1953 CT Colonography (combo) [facility] Test 00:00:00 [code = CT Colonography [facility] (combo)] Future Scheduled 1953 Screening for malignant [facility] 00:00:00 neoplasm of colon Medical Ce nter (procedure) [code = 491247482] Future Scheduled 1953 Screening for malignant [facility] 00:00:00 neoplasm of colon Medical Ce nter (procedure) [code = 897902362] Future Scheduled 1953 DXA SCAN [code = DXA [facility] 00:00:00 SCAN] [facility] Future Scheduled 1953 Screening for malignant [facility] 00:00:00 neoplasm of colon Medical Ce nter (procedure) [code = 154817448] Future Scheduled 1953 Screening for malignant [facility] 00:00:00 neoplasm of colon Medical Ce nter (procedure) [code = 894054017] Future Scheduled 1953 Sigmoidoscopy [code = [facility] 00:[facility] S[facility]oidoscopy] [facility] Future Scheduled 1953 Screening for malignant [facility] Test 00:00:00 neoplasm of breast Medical C enter (procedure) [code = 280591337] Future Scheduled 1953 CT Colonography (combo) [facility] Test 00:00:00 [code = CT Colonography [facility] (combo)] Future Scheduled 1953 Screening for malignant [facility] 00:00:00 neoplasm of colon Medical Ce nter (procedure) [code = 409564568] Future Scheduled 1953 Screening for malignant [facility] 00:00:00 neoplasm of colon Medical Ce nter (procedure) [code = 924037063] Future Scheduled 1953 DXA SCAN [code = DXA [facility] 00:00:00 SCAN] [facility] Future Scheduled 1953 Screening for malignant [facility] 00:00:00 neoplasm of colon Medical Ce nter (procedure) [code = 719818225] Future Scheduled 1953 Screening for malignant [facility] 00:00:00 neoplasm of colon Medical Ce nter (procedure) [code = 135456250] Future Scheduled 1953 Sigmoidoscopy [facility]code = [facility] Screening for malignant [facility] Test 00:00:00 neoplasm of breast Medical C enter (procedure) [code = 992319982] Future Scheduled 1953 CT Colonography (combo) [facility] Test 00:00:00 [code = CT Colonography [facility] (combo)] Future Scheduled 1953 Screening for malignant [facility] Test 00:00:00 neoplasm of colon Medical Ce nter (procedure) [code = 694673893] Future Scheduled 1953 Screening for malignant [facility] Test 00:00:00 neoplasm of colon Medical Ce nter (procedure) [code = 399665449] Future Scheduled 1953 DXA SCAN [code = DXA [facility] 00:00:00 SCAN] [facility] Future Scheduled 1953 Screening for malignant [facility] Test 00:00:00 neoplasm of colon Medical Ce nter (procedure) [code = 879103293] Future Scheduled 1953 Screening for malignant [facility] 00:00:00 neoplasm of colon Medical Ce nter (procedure) [code = 631671630] Future Scheduled 1953 Sigmoidoscopy [code = [facility] Screening for malignant [facility] Test 00:00:00 neoplasm of breast Medical C enter (procedure) [code = 130263486] Future Scheduled 1953 CT Colonography (combo) [facility] Test 00:00:00 [code = CT Colonography [facility] (combo)] Future Scheduled 1953 Screening for malignant [facility] Test 00:00:00 neoplasm of colon Medical Ce nter (procedure) [code = 955481108] Future Scheduled 1953 Screening for malignant [facility] Test 00:00:00 neoplasm of colon Medical Ce nter (procedure) [code = 053294781] Future Scheduled 1953 DXA SCAN [code = DXA [facility] Test 00:00:00 SCAN] Medical Center Future Scheduled 1953 Screening for malignant [facility] Test 00:00:00 neoplasm of colon Medical Ce nter (procedure) [code = 732491274] Future Scheduled 1953 Screening for malignant [facility] Test 00:00:00 neoplasm of colon Medical Ce nter (procedure) [code = 965951356] Future Scheduled 1953 Sigmoidoscopy [facility]code = [facility] 00:[facility] S[facility]oscopy] Medical Cente r Encounters Start End Encounter Admission Attending Care Care Encounter Source Date/Time Date/Time Type Type Clinicians Facility Department ID 2022-08-16 Outpatient IBRAHIM, STLMLC [facility] [id number] Common 12:00:01 DANIEL [id number] [facility] 2022-08-15 Outpatient IBRAHIM, STLMLC [facility] [id number] Common 15:12:01 DANIEL [id number] [facility] 2022-08-14 Outpatient Dobson, STLMLC [facility] [id number] Common 08:50:01 Saurabh [id number] [facility] 2022-06-05 Inpatient R [facility]IRK [facility] [id number] Univers 07:56:00 AL SHIVLEVI VASHTIMALA [facility] 2021-11-20 Inpatient R REBECA HOLCOMB [facility] [id number] Univers 15:24:28 REBECA HOLCOMB i [facility] 2021-09-21 Outpatient Dobson, STLMLC [facility] [id number] Common 10:27:03 Saurabh [id number] [facility] 2023-02-28 2023-02-28 Outpatient R SY [facility] [id number] Univers 11:20:00 11:20:00 [place] perez o f [facility] 2022-11-08 2022-11-08 Outpatient R HIMA, [facility] [id number] Univers 08:00:00 08:00:00 WAYNE [facility] 2022-08-29 2022-08-29 [facility]phone [facility] [id number] Univers 00:00:00 00:00:00 [place] ARANDA [id number] [place] [id number] Ma dickirk NAL 059 [facility] 2022-08-29 2022-08-29 Telephone [facility] [id number] Univers 00:00:00 00:00:00 [place] ARANDA [id number] [place] [id number] Ma dickirk BURGESS [address] [place] [address] 2022-08-28 2022-08-28 [facility] [id number] Univers 15:40:00 16:40:51 [place] perez o f [facility] 2022-08-28 2022-08-28 Office [facility] [id number] Univers 15:40:00 16:40:51 Visit Catrinamerzaheer ARANDA [id number] [place] [phone] [facility] [address] [place] [address] 2022-08-28 2022-08-28 Station Mechanic Apprentice Farnaz, Adc Lab Main [facility] 1.2.8 40.114 [id number] Univers 13:30:00 13:45:00 Visit [place] Dan [id number] [place] [id number] Ma natasha BURGESS 353 [facility] 2022-08-28 2022-08-28 Office [facility] [id number] Univers 13:00:00 13:27:01 Visit [place] ARANDA [id number] [place] [id number] Ma dical NAL 059 [facility] 2022-08-22 2022-08-22 Telephone [facility] [id number] Univers 00:00:00 00:00:00 [place] [id number] ity [place] 4[place] [id number] Ma dical NAL 059 [facility] 2022-08-01 2022-08-01 Outpatient R [facility] [id number] Univers 10:11:06 23:59:00 JOSEPH ity of [facility] 2022-08-01 2022-08-01 [facility] [id number] Univers 10:11:06 23:59:00 Encounter Joseph Judi [place] [id number] [place] C[place] [id number] [facility] [address] [place] 2022-08-01 2022-08-01 Office [facility] [id number] Univers 15:50:00 16:00:00 Visit Catrinamerzaheer GRAYSONJAVIER [id number] ity of [place] 4[place] [phone] Ma dicnd NAL 9 [facility] 2022-08-01 2022-08-01 Station Mechanic Apprentice Farnaz, Andre Lab Main [facility] 1.2.8 40.114 [id number] Univers 11:00:00 11:15:00 Visit [place] Dan [id number] [place] [id number] Ma dical NAL 353 [facility] 2022-08-01 2022-08-01 Telephone [facility] [id number] Univers 00:00:00 00:00:00 Catrinamerzaheer [place] 350.1.13.10 [place] [id number] Ma dical NAL 059 [facility] 2022-07-31 2022-07-31 Telephone [facility] [id number] [id number] Univers 00:00:00 00:00:00 [place] 350.1.13.10 ity of [place] [id number] Ma dical NAL 059 [facility] 2022-07-10 2022-07-10 Office Sy, 1.2.840.7 [id number] Univers 13:00:00 14:24:58 Visit [place] 90880.1.1 ity of 3.104.2.7 [place] .3.283102 Medica l .[place] 2022-07-10 2022-07-10 Outpatient R SY, [facility] [id number] Univers 13:00:00 13:00:00 [place] perez o f [facility] 2022-07-10 2022-07-10 Station Mechanic Apprentice [place] Dan 1.2.840.1 [id number] Univers 10:00:00 10:15:00 Visit Farnaz, Adc Lab Main 02233.1.1 ity of 3.104.2.7 [place] .3.489941 Medica l .[place] 2022-07-10 2022-07-10 Orders Doctor 1.2.840.3 [id number] Univers 00:00:00 00:00:00 Only Unassigned, 85708.1.1 ity of [place] 3.104.2.7 [place] .3.937758 Medica l .[place] 2022-07-10 2022-07-10 Telephone Sy, 1.2.840.7 [id number] Univers 00:00:00 00:00:00 [place] 33130.1.1 ity of 3.104.2.7 [place] .3.201660 Medica l .[place] 2022-06-25 2022-06-25 [facility] [id number] Univers 15:40:00 16:09:43 [place] perez o f [facility] 2022-06-25 2022-06-25 Office Sy, 1.2.840.0 [id number] Univers 15:40:00 16:09:43 Visit [place] 19350.1.1 ity of 3.104.2.7 [place] .3.487021 Medica l .8 Branch 2022-06-25 2022-06-25 Station Mechanic Apprentice [place] 1.2.840.1 [id number] Univers 11:45:00 12:00:00 Visit Po, [facility] Lab Main 37936.1.1 ity of 3.104.2.7 [place] .3.596538 Medica l .8 [place] 2022-06-25 2022-06-25 Office Sy, 1.2.840.5 [id number] [facility] 11:20:00 11:20:00 Visit Rogerzaheer 63070.1.1 ity of 3.104.2.7 [place] .3.226502 Medica l .8 Branch 2022-06-25 2022-06-25 Telephone Sy, 1.2.840.2 [id number] Univers 00:00:00 00:00:00 [place] 07619.1.1 ity of 3.104.2.7 [place] .3.207060 Medica l .8 Branch 2022-06-25 2022-06-25 Travel 1.2.840.1 1.2.298.493 1031 [id number] Univers 00:00:00 00:00:00 26996.1.1 350.1.13.10 ity of 3.104.2.7 4.2.7.3.698 [place] .3.208664 084.8 Medica l .8 Branch 2022-06-13 2022-06-13 Transition Isaak, 1.2.840.8 [id number] Univers 00:00:00 00:00:00 of Care Jeremy A 90566.1.1 it y of 3.104.2.7 [place] .3.324835 Medica l .8 Branch 2022-06-06 2022-06-12 Inpatient R MARIIA CARDONA [facility] [id number] Univers 17:19:00 12:24:00 MARIIA CARDONA ity of [facility] 2022-06-06 2022-06-12 Hospital Kirk Connell, 1.2.840.0 [id number] Univers 17:19:00 12:24:00 Encounter Vashtimala 30055.1.1 it y of 3.104.2.7 [place] .3.991275 Medica l .8 Branch 2022-06-06 2022-06-06 Station Mechanic Apprentice Sy [place] 1.2.840.1 [id number] [facility] 10:15:00 10:30:00 Visit Po, [facility] Lab Main 89533.1.1 ity of [place], [place] 3.104.2.7 [place] .3.119995 Medica l .8 Branch 2022-06-06 2022-06-06 Telephone Sy, 1.2.840.2 [id number] Univers 00:00:00 00:00:00 [place] 65202.1.1 ity of 3.104.2.7 [place] .3.457888 Medica l .8 Branch 2022-06-06 2022-06-06 Travel 1.2.840.1 1.2.464.103 8909 [id number] Univers 00:00:00 00:00:00 47143.1.1 350.1.13.10 ity of 3.104.2.7 4.2.7.3.698 [place] .3.340079 084.8 Medica l .8 Branch 2022-06-05 2022-06-05 Telephone Sewani, 1.2.840.0 [id number] 100 [id number] Univers 00:00:00 00:00:00 [place] 54534.1.1 ity of 3.104.2.7 [place] .3.630702 Medica l .8 Branch 2022-05-29 2022-05-29 Telephone Sewani, 1.2.840.9 [id number] Univers 00:00:00 00:00:00 [place] 81054.1.1 ity of 3.104.2.7 [place] .3.096398 Medica l .8 Branch 2022-05-18 2022-05-27 [facility] [id number] [facility] 08:42:00 16:40:00 MEAGHAN 2022-05-18 2022-05-27 Hospital ER Sean Grahamus [facility] [id number] [facility] 08:42:00 16:40:00 Encounter [facility] Angela, Purnima Diane, Benjamin [place], Meaghan Reilly 2022-05-19 2022-05-19 Travel [facility] [id number] [facility] 00:[facility] 00:00:00 [facility] 2022-05-18 2022-05-18 Orders [facility] [id number] 00:00:00 00:00:00 Only [facility] 2022-05-18 2022-05-18 Telephone Santos [facility] [id number] 00:00:00 00:00:[address] [facility] 2022-05-10 2022-05-10 Outpatient R HIMA [facility] [id number] Univers 11:40:00 12:05:03 WAYNE ity of [facility] 2022-05-10 2022-05-10 Office [facility] 1.2.840.6 [id number] Univers 11:40:00 12:05:03 Visit Wayne 43665.1.1 ity of 3.104.2.7 [place] .3.619358 Medica l .8 [place] 2022-05-10 2022-05-10 Travel 1.2.840.1 1.2.794.329 3877 [id number] Univers 00:00:00 00:00:00 44752.1.1 350.1.13.10 ity of 3.104.2.7 4.2.7.3.698 [place] .3.515972 084.8 Medica l .8 [place] 2022-05-09 2022-05-09 Station Mechanic Apprentice [place] Dan 1.2.840.1 [id number] Univers 10:30:00 10:45:00 Visit Farnaz, Andre Lab Main 45603.1.1 ity of 3.104.2.7 [place] .3.843965 Medica l .8 [place] 2022-05-09 2022-05-09 [facility] [id number] Univers 10:30:00 10:30:00 [place] perez o f [facility] 2022-05-09 2022-05-09 Orders Doctor 1.2.840.3 [id number] Univers 00:00:00 00:00:00 Only Unassigned, 12019.1.1 ity of [place] 3.104.2.7 [place] .3.529198 Medica l .8 [place] 2022-05-09 2022-05-09 Telephone Sy, 1.2.840.8 [id number] Univers 00:00:00 00:00:00 [place] 01766.1.1 ity of 3.104.2.7 [place] .3.474978 Medica l .8 [place] 2022-04-12 2022-04-12 [facility]patient [facility] [id number] Univers 11:00:00 11:00:00 WAYNE ity of [facility] 2022-04-12 2022-04-12 Outpatient [facility] [id number] Univers 11:00:00 11:00:00 WAYNE ity [facility] 2022-04-11 2022-04-11 Station Mechanic Apprentice [place] Dan 1.2.840.1 [id number] Univers 09:45:00 10:00:00 Visit Pofredy, Adc Lab Main 85748.1.1 ity of 3.104.2.7 [place] .3.883058 Medica l .8 [place] 2022-04-11 2022-04-11 Outpatient [facility] [id number] Univers 09:45:00 09:45:00 [place] perez o f [facility] 2022-04-11 2022-04-11 Orders Doctor 1.2.840.4 [id number] Univers 00:00:00 00:00:00 Only Unassigned, 58632.1.1 ity of [place] 3.104.2.7 [place] .3.692677 Medica l .8 Branch 2022-04-11 2022-04-11 Telephone Sy, 1.2.840.8 [id number] Univers 00:00:00 00:00:00 Qiajuan 84787.1.1 ity of 3.104.2.7 [place] .3.675278 Medica l .8 [place] 2022-03-30 2022-03-30 Refill Sy, 1.2.840.6 [id number] Univers 00:00:00 00:00:00 Qiangzaheer 83755.1.1 ity of 3.104.2.7 [place] .3.553625 Medica l .8 Branch 2022-03-15 2022-03-15 Telephone Rosarioani, 1.2.840.0 [id number] Univers 00:00:00 00:00:00 [place] 47143.1.1 ity of 3.104.2.7 [place] .3.766612 Medica l .8 [place] 2022-03-14 2022-03-14 Station Mechanic Apprentice [place] 1.2.840.1 [id number] Univers 09:30:00 09:45:00 Visit Pob, [facility] Lab Main 68229.1.1 ity of 3.104.2.7 [place] .3.200267 Medica l .8 [place] 2022-03-14 2022-03-14 Outpatient R SY, [facility] [id number] Univers 09:30:00 09:30:00 [place] ity o f [facility] 2022-03-14 2022-03-14 Orders Doctor 1.2.840.6 [id number] Univers 00:00:00 00:00:00 Only Unassigned, 80679.1.1 ity of [place] 3.104.2.7 [place] .3.172790 Medica l .8 [place] 2022-03-14 2022-03-14 Telephone Sy, 1.2.840.5 [id number] [id number] Univers 00:00:00 00:00:00 [place] 19913.1.1 ity of 3.104.2.7 [place] .3.579603 Medica l .8 [place] 2022-02-28 2022-02-28 Station Mechanic Apprentice 1, Adc Lab [facility] 1.2.840.114 [id number] Univers 13:30:00 13:45:00 Visit [place] Dan 350.1.13.10 ity of [place] 4.2.7.2.686 [facility] [phone] [facility] [address] [place] 2022-02-28 2022-02-28 Outpatient R SY, [facility] [id number] Univers 13:00:00 13:20:24 [place] perez o [facility] 2022-02-28 2022-02-28 Office Sy, [facility] 1.2.840.114 [id number] Univers 13:00:00 13:20:24 Visit [place] ARANDA 350.1.13.10 ity of [facility] 4.2.7.2.686 [facility] [phone] Ma dical NAL 059 [facility] 2022-02-28 2022-02-28 Outpatient R SY, [facility] [id number] Univers 13:00:00 13:00:00 CATRINAZAHEER perez o [facility] 2022-02-28 2022-02-28 Outpatient R SY, [facility] [id number] Univers 13:00:00 13:00:00 [place] perez o [facility] 2022-02-28 2022-02-28 Outpatient R SY, [facility] [id number] Univers 13:00:00 13:00:00 [place] perez o [facility] 2022-02-28 2022-02-28 Orders Doctor JOHANN 1.2.840.114 [id number] Univers 00:00:00 00:00:00 Only Unassigned, MIKE 350.1.13.10 ity of [place] [facility] 4.2.7.2.686 Babak [id number] [facility] 009 Branch 2022-02-28 2022-02-28 Telephone Sy, [facility] 1.2.916.951 [id number] [id number] Univers 00:00:00 00:00:00 [place] GRAYSONJAVIER 350.1.13.10 ity of [place] 4.2.7.2.686 [place] [phone] Ma dical NAL 059 [facility] 2022-02-14 2022-02-14 Station Mechanic Apprentice Farnaz, Andre Lab Main [facility] 1.2.8 40.114 [id number] Univers 09:45:00 10:00:00 Visit [place] Dan 350.1.13.10 ity of [facility] 4.2.7.2.686 [place] [id number] [facility] 353 [facility] 2022-02-14 2022-02-14 Outpatient [facility] [id number] Univers 09:45:00 09:45:00 [place] ity o f [facility] 2022-02-14 2022-02-14 Orders Doctor JOHANN 1.2.840.114 [id number] Univers 00:00:00 00:00:00 Only Unassigned, MIKE 350.1.13.10 ity of [place] [facility] 4.2.7.2.686 Babak as [phone] [address] 2022-02-14 2022-02-14 Telephone [facility] 1.2.933.574 [id number] [id number] Univers 00:00:00 00:00:00 Qiamerjun [place] 350.1.13.10 ity of [facility] 4.2.7.2.686 [place] [id number] Ma dical NAL 059 [facility] 2022-02-13 2022-02-13 [facility] 1.2.840.114 [id number] Univers 00:00:00 00:00:00 Qiangjun [place] 350.1.13.10 ity of [facility] 4.2.7.2.686 [place] [id number] Ma dical NAL 059 [facility] 2022-01-27 2022-01-27 Telephone [facility] 1.2.039.672 [id number] Univers 00:00:00 00:00:00 Qiamerjun [place] 350.1.13.10 ity of [facility] 4.2.7.2.686 [place] [id number] [place] 515979 [facility] 2022-01-25 2022-01-25 Station Mechanic Apprentice Farnaz, Adc Lab Main [facility] 1.2.8 40.114 [id number] Univers 08:45:00 09:00:00 Visit [place] DanTON 350.1.13.10 ity of [place] 4.2.7.2.686 [place] [phone] Ma dical NAL [address] [place] [address] 2022-01-25 2022-01-25 Outpatient R [facility] [id number] Univers 08:45:00 08:45:00 QIANGJUN ity o f [facility] 2022-01-19 2022-01-19 Station Mechanic Apprentice Farnaz, Adc Lab Main [facility] 1.2.8 40.114 [id number] Univers 12:30:00 12:45:00 Visit YsJ[place] 350.1.13.10 ity of [place] 4.2.7.2.686 [place] [phone] Ma dicnd NAL [address] [place] [address] 2022-01-19 2022-01-19 Outpatient [facility] [id number] Univers 12:30:00 12:30:00 QIANGJUN ity o f [facility] 2022-01-19 2022-01-19 Telephone [facility] 1.2.035.436 [id number] Univers 00:00:00 00:00:00 Qiangjun [place] 350.1.13.10 ity of [place] 4.2.7.2.686 [place] [id number] Ma dical NAL [address] [place] [address] 2022-01-17 2022-01-17 Station Mechanic Apprentice Farnaz, Adc Lab Main [facility] 1.2.8 40.114 [id number] Univers 08:45:00 09:00:00 Visit [place] Dan [place] 350.1.13.10 ity of [place] 4.2.7.2.686 [place] [phone] Ma dical NAL [address] [place] [address] 2022-01-17 2022-01-17 Outpatient [facility] [id number] Univers 08:45:00 08:45:00 QIANGJUN ity o f [facility] 2022-01-17 2022-01-17 [facility]phone [facility] 1.2.675.614 [id number] Univers 00:00:00 00:00:00 Catrinamerzaheer KENANJAVIER 350.1.13.10 ity of [place] 4.2.7.2.686 [place] [id number] [address] 2021-12-28 2021-12-28 Station Mechanic Apprentice Farnaz, Andre Lab Main [facility] 1.2.8 40.114 [id number] Univers 10:30:00 10:45:00 Visit Yolande Santacruz 350.1.13.10 ity of [place] 4.2.7.2.686 [place] [phone] [facility] 353 [facility] 2021-12-28 2021-12-28 Outpatient R IVAN [facility] [id number] Univers 10:30:00 10:30:00 YOLANDE perez [facility] 2021-12-28 2021-12-28 Telephone YANY Dan 1.2.020.431 [id number] Univers 00:00:00 00:00:00 [place] PEDIATRIC 350.1.13.10 [place] of [place].2.7.2.686 [place] [phone] [address] 2021-12-15 2021-12-15 [facility]phone [facility] 1.2.009.417 [id number] Univers 00:00:00 00:00:00 [place] GRAYSONJAVIER 350.1.13.10 ity of [place] 4.2.7.2.686 [place] PROF[place] [phone] Ma dic[address] 2021-12-15 2021-12-15 Telephone [facility] 1.2.877.244 [id number] [id number] Univers 00:00:00 00:00:00 Rogerzaheer ROSI 350.1.13.10 ity of [place] 4.2.7.2.686 [place] [phone] Ma dical [address] 2021-12-15 2021-12-15 Refill [facility] 1.2.840.114 [id number] Univers 00:00:00 00:00:00 [place] ARANDA 350.1.13.10 ity of [facility] 4.2.7.2.686 [place] [id number] Ma dical NAL 059 [facility] 2021-12-14 2021-12-14 Station Mechanic Apprentice Farnaz, Adc Lab Main [facility] 1.2.8 40.114 [id number] Univers 12:30:00 12:45:00 Visit [place] Dan 350.1.13.10 ity of [facility] 4.2.7.2.686 [place] [phone] Ma dical [facility] 353 [facility] 2021-12-14 2021-12-14 Outpatient R [facility] [id number] Univers 12:30:00 12:30:00 [place] scotty o f [facility] 2021-12-14 2021-12-14 Orders Doctor WILLS 1.2.840.114 [id number] Univers 00:00:00 00:00:00 Only Unassigned, MIKE 350.1.13.10 ity of [place] [facility] 4.2.7.2.686 Babak as [phone] [address] 2021-12-04 2021-12-04 Station Mechanic Apprentice Farnaz, Adc Lab Main [facility] 1.2.8 40.114 [id number] Univers 14:15:00 14:30:00 Visit [place] Dan 350.1.13.10 ity of [facility] 4.2.7.2.686 [place] [phone] Ma dical NAL 353 [facility] 2021-12-04 2021-12-04 Outpatient [facility] [id number] Univers 14:15:00 14:15:00 [place] scotty o f [facility] 2021-12-04 2021-12-04 Outpatient R SY, [facility] [id number] Univers 14:15:00 14:15:00 [place] scotty o f [facility] 2021-12-04 2021-12-04 Transition ALESIA Gamez 1.2.840.114 [id number] Univers 00:00:00 00:00:00 of Care Georgie SAMANIEGO 350.1.13.10 it y of [place] 4.2.7.2.686 [place] [phone] [facility] [address] 2021-12-04 2021-12-04 Telephone Sy [facility] 1.2.132.978 [id number] Univers 00:00:00 00:00:00 [place] ARANDA 350.1.13.10 ity of [facility] 4.2.7.2.686 [place] [phone] Ma dical NAL 059 [facility] 2021-11-23 2021-12-01 Inpatient R REBECA HOLCOMB [facility] 10 [id number] Univers 15:31:00 14:11:00 REBECA HOLCOMB ity of [facility] 2021-11-23 2021-12-01 Hospital SHAYAN Holcomb 1.2.977.737 [id number] Univers 15:31:00 14:11:00 Encounter Rebeca MCKEON 350.1.13.10 ity of [facility] 4.2.7.2.686 Babak as [id number] [facility] [address] [place] 2021-12-01 2021-12-01 Telephone [facility] 1.2.985.335 [id number] 0453 Univers 00:00:00 00:00:00 Wayneabigail ARANDA 350.1.13.10 i ty of [place] 4.2.7.2.686 [place] [id number] Ma dical NAL 059 [facility] 2021-11-23 2021-11-23 Orders Doctor JOHANN 1.2.840.114 [id number] Univers 00:00:00 00:00:00 Only Unassigned, MIKE 350.1.13.10 ity of [place] [facility] 4.2.7.2.686 Babak as [id number] [facility] 009 [address] 2021-11-22 2021-11-22 Station Mechanic Apprentice Farnaz, Adc Lab Main [facility] 1.2.8 40.114 [id number] Univers 07:45:00 08:00:00 Visit [place] Dan 350.1.13.10 ity of [place] 4.2.7.2.686 [place] [phone] Ma dical NAL 353 [facility] 2021-11-22 2021-11-22 Outpatient R SY, [facility] [id number] Univers 07:45:00 07:45:00 QIANGJUN ity o f [facility] 2021-11-22 2021-11-22 Outpatient R SY, [facility] [id number] Univers 07:45:00 07:45:00 QIANGJUN ity o [facility] 2021-11-20 2021-11-20 Telephone [facility] 1.2.051.476 [id number] Univers 00:00:00 00:00:00 Qiamerjun [place] 350.1.13.10 ity of [place] 4.2.7.2.686 [place] [id number] Ma dical NAL 9 [facility] 2021-11-10 2021-11-10 Station Mechanic Apprentice Farnaz, Adc Lab Main [facility] 1.2.8 40.114 [id number] Univers 16:45:00 17:00:00 Visit Sy [place] 350.1.13.10 ity of [place] 4.2.7.2.686 [place] [phone] Ma dical NAL 353 [facility] 2021-11-10 2021-11-10 Outpatient R SY, [facility] [id number] Univers 16:45:00 16:45:00 QIANGJUN ity o [facility] 2021-11-10 2021-11-10 Outpatient R SY, [facility] [id number] Univers 16:45:00 16:45:00 QIANGJUN ity o [facility] 2021-11-10 2021-11-10 Telephone [facility] 1.2.714.027 [id number] Univers 00:00:00 00:00:00 Qiangjun [place] 350.1.13.10 ity of [place] 4.2.7.2.686 [place] [phone] Ma dical NAL 059 [facility] 2021-11-07 2021-11-07 Telephone [facility] 1.2.840.114 [id number] Univers 00:00:00 00:00:00 h, Tareq HEALTH 350.1.13.10 i ty of [place].2.7.2.686 [place] [id number] [address] 2021-11-06 2021-11-06 Station Mechanic Apprentice Farnaz, Andre Lab Main [facility] 1.2.8 40.114 [id number] Univers 13:15:00 13:30:00 Visit Sy [place] ARANDA 350.1.13.10 ity of [place] 4.2.7.2.686 [place] [id number] [facility] 353 [facility] 2021-11-06 2021-11-06 Outpatient R SY [facility] [id number] Univers 13:15:00 13:15:00 [place] perez o [facility] 2021-11-06 2021-11-06 Outpatient R SY [facility] [id number] Univers 13:15:00 13:15:00 [place] perez o [facility] 2021-11-06 2021-11-06 Telephone [facility] 1.2.073.266 [id number] Univers 00:00:00 00:00:00 [place] ARANDA 350.1.13.10 ity of [facility] 4.2.7.2.686 [place] [id number] [address] 2021-11-06 2021-11-06 Telephone [facility] 1.2.946.721 [id number] Univers 00:00:00 00:00:00 Wayne HEALTH 350.1.13.10 it y of [place] 4.2.7.2.686 [place] [phone] [address] OFFICE [facility] 2021-11-03 2021-11-03 Outpatient R HIMA [facility] [id number] Univers 15:00:00 15:40:28 WAYNE ity [facility] 2021-11-03 2021-11-03 [facility]patient [facility] [id number] Univers 15:00:00 15:40:28 WAYNE ity [facility] 2021-11-03 2021-11-03 Office [facility] 1.2.840.114 [id number] Univers 15:00:00 15:20:00 Visit Wayne ROSI 350.1.13.10 i ty of [facility] 4.2.7.2.686 [place] [id number] [place] 954339 [facility] 2021-11-03 2021-11-03 Outpatient [facility] [id number] Univers 15:00:00 15:00:00 WAYNE ity [facility] 2021-11-03 2021-11-03 Station Mechanic Apprentice Farnaz, Adc Lab Main [facility] 1.2.8 40.114 [id number] Univers 14:30:00 14:45:00 Visit [place] Dan ROSI 350.1.13.10 ity of [place] 4.2.7.2.686 [place] [id number] [facility] 353 [facility] 2021-11-03 2021-11-03 Outpatient [facility] [id number] Univers 11:00:00 11:00:00 WAYNE ity of [facility] 2021-11-03 2021-11-03 Outpatient [facility] [id number] Univers 11:00:00 11:00:00 WAYNE ity [facility] 2021-11-03 2021-11-03 Outpatient [facility] [id number] Univers 11:00:00 11:00:00 WAYNE ity [facility] 2021-11-03 2021-11-03 Telephone [facility] 1.2.452.081 [id number] Univers 00:00:00 00:00:00 [place] ARANDA 350.1.13.10 ity of [facility] 4.2.7.2.686 [place] [id number] Ma dicnd NAL [address] [place] [address] 2021-10-25 2021-10-25 Refill [facility] 1.2.840.114 [id number] Univers 00:00:00 00:00:00 Q[place]jun [place] [id number] ity [facility] [id number] [phone] Ma dical NAL 059 [facility] 2021-10-23 2021-10-23 Station Mechanic Apprentice Farnaz, Adc Lab Main [facility] 1.2.8 40.114 [id number] Univers 10:15:00 10:30:00 Visit Sy, [place] ARANDA [id number] ity of [id number] [phone] Ma dical NAL 353 [facility] 2021-10-23 2021-10-23 Outpatient R [facility] [id number] Univers 10:15:00 10:15:00 CATRINAJUAN ity o f [facility] 2021-10-23 2021-10-23 Outpatient R [facility] [id number] Univers 10:15:00 10:15:00 ROGERZAHEER ana o [facility] 2021-10-23 2021-10-23 Orders Doctor JOHANN [id number] [id number] Univers 00:00:00 00:00:00 Only Unassigned, MIKE 350.1.13.10 [facility] 4.2.7.2.686 Babak as [phone] [address] 2021-10-23 2021-10-23 Refill [facility] 1.2.840.114 [id number] Univers 00:00:00 00:00:00 [place] ARANDA [id number] [facility] [id number] [phone] Ma dical NAL 059 [facility] 2021-10-23 2021-10-23 Telephone [facility] 1.2.555.021 [id number] Univers 00:00:00 00:00:00 [place] ARANDA [id number] ity of [id number] [phone] Ma dical NAL 059 [facility] 2021-10-18 2021-10-18 Station Mechanic Apprentice Farnaz, Adc Lab Main [facility] 1.2.8 40.114 [id number] Univers 09:30:00 09:45:00 Visit [place] DanTON [id number] ity of [id number] [phone] Ma dical NAL 353 [facility] 2021-10-18 2021-10-18 Outpatient R SY, [facility] [id number] Univers 09:30:00 09:30:00 QIANGZAHEER ity o f [facility] 2021-10-18 2021-10-18 Outpatient R SY, [facility] [id number] Univers 09:30:00 09:30:00 QIANGZAHEER ity o f [facility] 2021-10-18 2021-10-18 Telephone [facility] [id number] Univers 00:00:00 00:00:00 Qiajuan [place] [id number] it[place] 4[place].2.[place] [phone] [facility] NAL 059 [facility] 2021-10-13 2021-10-13 Station Mechanic Apprentice Farnaz, Adc Lab Main [facility] 1.2.8 40.114 [id number] Univers 10:45:00 11:00:00 Visit [place] DanTON [id number] it[place] of [place] [id number] [phone] Ma dical NAL 353 [facility] 2021-10-13 2021-10-13 Outpatient R SY, [facility] [id number] Univers 10:45:00 10:45:00 [place]AM[place] ity o f [facility] 2021-10-13 2021-10-13 Outpatient R SY, [facility] [id number] Univers 10:45:00 10:45:00 QIANGZAHEER ity o f [facility] 2021-10-13 2021-10-13 Telephone [facility] 1.2.157.988 [id number] Univers 00:00:00 00:00:00 Qiajuan [place] [id number] it[place] of [place] [id number] [phone] Ma dical NAL 059 [facility] 2021-09-27 2021-09-27 Station Mechanic Apprentice Farnaz, Adc Lab Main [facility] 1.2.8 40.114 [id number] Univers 10:15:00 10:30:00 Visit [place] Dan [place] [id number] [place] [phone] Ma dicnd NAL 353 [facility] 2021-09-27 2021-09-27 Outpatient R SY, [facility] [id number] Univers 10:15:00 10:15:00 QIAJUAN ity o f [facility] 2021-09-27 2021-09-27 Outpatient R SY, [facility] [id number] Univers 10:15:00 10:15:00 ROGERZAHEER ity o f [facility] 2021-09-27 2021-09-27 Telephone [facility] 1.2.480.498 [id number] Univers 00:00:00 00:00:00 Rogerjun [place] 350.1.13.10 it[place] of [place] [phone] [facility] NAL [address] [place] [address] 2021-09-27 2021-09-27 Telephone [facility] 1.2.557.628 [id number] Univers 00:00:00 00:00:00 Qiamerjun [place] 350.1.13.10 it[place] of [place] [id number] Ma dical NAL [address] [place] [address] 2021-09-21 2021-09-21 Refill [facility] 1.2.840.114 [id number] Univers 00:00:00 00:00:00 Qiangjun [place] 350.1.13.10 it[place] of [place] [phone] Ma dical NAL [address] [place] [address] 2021-09-01 2021-09-01 Telephone [facility] 1.2.629.751 [id number] Univers 00:00:00 00:00:00 Qiangjun [place] 350.1.13.10 it[place] of [place] [phone] Ma dical NAL 059 [facility] 2021-08-30 2021-08-30 Station Mechanic Apprentice Andre Osei Lab Main [facility] 1.2.8 40.114 [id number] Univers 09:00:00 09:15:00 Visit Sy Rogerzaheer ROSI 350.1.13.10 it[facility] 4.2.7.2.[place] [phone] Ma dical NAL 353 [facility] 2021-08-30 2021-08-30 Outpatient R [facility] [id number] Univers 09:00:00 09:00:00 [place] perez o f [facility] 2021-08-30 2021-08-30 Outpatient R [facility] [id number] [facility] 09:00:00 09:00:00 [place] perez o [facility] 2021-08-30 2021-08-30 Orders Doctor JOHANN 1.2.840.114 [id number] Univers 00:00:00 00:00:00 Only Unassigned, MIKE 350.1.13.10 ity of [place] [facility] 4.2.7.2.686 Babak as [phone] [address] 2021-08-30 2021-08-30 [facility]phone [facility] 1.2.236.591 [id number] Univers 00:00:00 00:00:00 Rogerzaheer ROSI 350.1.13.10 it[place] of [place] [phone] Ma dical NAL 059 [facility] 2021-08-28 2021-08-28 Office [facility] 1.2.840.114 [id number] Univers 10:40:00 10:49:42 Visit Rogerzaheer ROSI 350.1.13.10 it[place] of [place] [phone] Ma dical NAL 059 [facility] 2021-08-28 2021-08-28 [facility] [id number] Univers 10:40:00 10:49:42 [place] jimenes [facility] 2021-08-28 2021-08-28 Outpatient R SY, [facility] [id number] Univers 10:40:00 10:40:00 [place] jimenes [facility] 2021-08-28 2021-08-28 Outpatient R SY, [facility] [id number] Univers 10:40:00 10:40:00 [place] jimenes [facility] 2021-08-16 2021-08-16 Station Mechanic Apprentice Farnaz, Adc Lab Main [facility] 1.2.8 40.114 [id number] Univers 12:15:00 12:30:00 Visit [place] DanJAVIER 350.1.13.10 ity of [place] [phone] Ma dical NAL 353 [facility] 2021-08-16 2021-08-16 Outpatient R SY, [facility] [id number] Univers 12:15:00 12:15:00 [place] jimenes [facility] 2021-08-16 2021-08-16 Outpatient R SY, [facility] [id number] Univers 12:15:00 12:15:00 [place] perez [facility] 2021-08-16 2021-08-16 Orders Doctor JOHANN 1.2.840.114 [id number] Univers 00:00:00 00:00:00 Only Unassigned, MIKE 350.1.13.10 ity of [place] [facility] 4.2.7.2.686 Babak as [id number] [address] 2021-08-16 2021-08-16 Telephone Sy, [facility] 1.2.428.962 [id number] Univers 00:00:00 00:00:00 [place] ARANDA 350.1.13.10 ity [facility] 4.2.7.2.[place] [phone] Ma dical NAL 059 [facility] 2021-08-02 2021-08-02 Station Mechanic Apprentice Farnaz, Adc Lab Main [facility] 1.2.8 40.114 [id number] Univers 09:00:00 09:15:00 Visit [place] Dan 350.1.13.10 it[place] of [place] [id number] Ma dical NAL 353 [facility] 2021-08-02 2021-08-02 Outpatient R [facility] [id number] Univers 09:00:00 09:00:00 [place] ity o f [facility] 2021-08-02 2021-08-02 Outpatient R [facility] [id number] Univers 09:00:00 09:00:00 [place] scotty o f [facility] 2021-08-02 2021-08-02 Orders Doctor JOHANN 1.2.840.114 [id number] Univers 00:00:00 00:00:00 Only Unassigned, MIKE 350.1.13.10 ity of [place] [facility] 4.2.7.2.686 Babak as [phone] [address] 2021-08-02 2021-08-02 Telephone [facility] 1.2.890.656 [id number] [facility] 00:00:00 00:00:00 [place] 350.1.13.10 it[place] of [place] [phone] Ma dicnd NAL 059 [facility] 2021-07-10 2021-07-10 Refill [facility] 1.2.840.114 [id number] Univers 00:00:00 00:00:00 [place] 350.1.13.10 it[place] of [place] [phone] Ma dical NAL 059 [facility] 2021-07-05 2021-07-05 Station Mechanic Apprentice Farnaz, Andre Lab Main [facility] 1.2.8 40.114 [id number] Univers 09:30:00 09:45:00 Visit [place] Dan 350.1.13.10 it[place] of [place] [phone] Ma dical NAL 353 [facility] 2021-07-052021-07-05 Outpatient R SY, [facility] [id number] Univers 09:30:00 09:30:00 [place] perez o [facility] 2021-07-05 2021-07-05 Outpatient R SY, [facility] [id number] Univers 09:30:00 09:30:00 [place] perez o [facility] 2021-07-05 2021-07-05 Telephone [facility] 1.2.210.147 [id number] Univers 00:00:00 00:00:00 [place] ARANDA 350.1.13.10 ity [facility] 4.2.7.2.[place] [id number] Ma dical NAL 059 [facility] 2021-06-15 2021-06-15 Station Mechanic Apprentice Farnaz, Adc Lab Main [facility] 1.2.8 40.114 [id number] Univers 09:45:00 10:00:00 Visit [place] Dan 350.1.13.10 ity [facility] 4.2.7.2.[place] [id number] Ma dical NAL 353 [facility] 2021-06-15 2021-06-15 Outpatient R [facility] [id number] Univers 09:45:00 09:23:22 [place] perez o [facility] 2021-06-15 2021-06-15 Outpatient R SY, [facility] [id number] Univers 09:45:00 09:23:22 CATRINAJUAN tylerjake o [facility] 2021-06-15 2021-06-15 Orders Doctor JOHANN 1.2.840.114 [id number] Univers 00:00:00 00:00:00 Only Unassigned, MIKE 350.1.13.10 ity of [place] [facility] 4.2.7.2.686 Babak as [phone] [address] 2021-06-15 2021-06-15 Telephone SyYANY 1.2.806.707 [id number] Univers 00:00:00 00:00:00 [place] PEDIATRIC 350.1.13.10 [place] [id number] [facility] PRIMARY [address] [facility] 2021-05-31 2021-05-31 Station Mechanic Apprentice Farnaz, Andre Lab Main [facility] 1.2.8 40.114 [id number] Univers 10:45:00 11:00:00 Visit [place] Dan ROSI 350.1.13.10 ity [facility] 4.2.7.2.[place] [phone] [facility] 353 [facility] 2021-05-31 2021-05-31 Office [facility] 1.2.840.114 [id number] Univers 10:00:00 10:33:12 Visit [place] ARANDA 350.1.13.10 ity of [place]2.[place] [phone] [place] 515979 [facility] 2021-05-31 2021-05-31 Outpatient R [facility] [id number] Univers 10:00:00 10:33:12 [place] scotty o [facility] 2021-05-31 2021-05-31 Outpatient R [facility] [id number] Univers 10:00:00 10:00:00 [place] perez o [facility] 2021-05-31 2021-05-31 Telephone [facility] 1.2.437.771 [id number] Univers 00:00:00 00:00:00 [place] ARANDA 350.1.13.10 ity [facility] 4.2.7.2.[place] [phone] [place] 515979 [facility] 2021-05-26 2021-05-26 Emergency X JAKE, K [facility] ERT [id number] Univers 17:30:00 20:34:[address] [facility] 2021-05-26 2021-05-26 Emergency Jake, K [facility] 1.2.840.114 [id number] Univers 17:30:00 20:34:00 Myah ARANDA 350.1.13.10 i ty of [facility] 4.2.7.2.[place] [phone] [facility] [address] 2021-05-26 2021-05-26 Outpatient R SY, [facility] [id number] Univers 10:20:00 10:20:00 [place] jimenes [facility] 2021-05-26 2021-05-26 Outpatient R SY, [facility] [id number] Univers 10:20:00 10:20:00 [place] perez o [facility] 2021-05-10 2021-05-10 Station Mechanic Apprentice Farnaz, Adc Lab Main [facility] 1.2.8 40.114 [id number] Univers 08:15:00 08:30:00 Visit [place] Dan [place] 350.1.13.10 ity of [place] [phone] [facility] 353 [facility] 2021-05-10 2021-05-10 Outpatient R SY, [facility] [id number] Univers 08:15:00 08:15:00 [place] perez o [facility] 2021-05-10 2021-05-10 Outpatient R SY, [facility] [id number] Univers 08:15:00 08:15:00 [place] perez o [facility] 2021-05-10 2021-05-10 Telephone [facility] 1.2.603.397 [id number] Univers 00:00:00 00:00:00 Qiamerjun [place] 350.1.13.10 it[place] of [place] [phone] Ma dical NAL 059 [facility] 2021-05-10 2021-05-10 Telephone [facility] 1.2.788.022 [id number] Univers 00:00:00 00:00:00 Qiangjun [place] 350.1.13.10 ity of [place] [id number] Ma dical NAL [address] [place] [address] 2021-05-09 2021-05-09 Refill [facility] 1.2.840.114 [id number] Univers 00:00:00 00:00:00 Qiangjun [place] 350.1.13.10 it[place] of [place] [phone] Ma dicnd NAL 059 [facility] 2021-05-04 2021-05-04 [facility]ill [facility] 1.2.840.114 [id number] Univers 00:00:00 00:00:00 [place] 350.1.13.10 ity of [facility] 4.2.7.2.[place] [id number] [address] 2021-04-28 2021-04-28 [facility] [id number] Univers 08:40:00 09:19:00 WAYNE ity of [facility] 2021-04-28 2021-04-28 Office [facility] 1.2.840.114 [id number] Univers 08:40:00 09:19:00 Visit Wayne ROSI 350.1.13.10 i ty of [place] [phone] [address] 2021-04-28 2021-04-28 Out[facility] [id number] Univers 08:40:00 09:19:00 WAYNE ity of [facility] 2021-04-28 2021-04-28 Station Mechanic Apprentice Farnaz, Adc Lab Main [facility] 1.2.8 40.114 [id number] Univers 08:00:00 08:15:00 Visit [place] Dan 350.1.13.10 ity of [facility] 4.2.7.2.[place] [phone] Ma dicnd NAL [address] [place] [address] 2021-04-27 2021-04-27 Station Mechanic Apprentice Farnaz, Adc Lab Main [facility] 1.2.8 40.114 [id number] Univers 10:45:00 11:00:00 Visit [place] Dan 350.1.13.10 ity of [place].2.[place] [phone] Ma dic[address] 2021-04-27 2021-04-27 [facility] [id number] Univers 10:45:00 10:45:00 [place] scotty o f [facility] 2021-04-27 2021-04-27 Outpatient R SY [facility] [id number] Univers 10:45:00 10:45:00 [place] scotty o f [facility] 2021-04-27 2021-04-27 Telephone YANY Dan 1.2.425.074 [id number] Univers 00:00:00 00:00:00 [place] PEDIATRIC 350.1.13.10 [place] of [place] [id number] [facility] PRIMARY 059 [facility] 2021-04-25 2021-04-25 Outpatient R HIMA [facility] [id number] Univers 10:20:00 10:20:00 [facility] 2021-04-25 Outpatient Joan RABAGO [facility] [id number] Univers 10:20:00 10:20:00 [facility] 2021-04-12 2021-04-12 Station Mechanic Apprentice Farnaz, Adc Lab Main [facility] 1.2.8 40.114 [id number] Univers 09:30:00 09:45:00 Visit Sy [place] [facility] 350.1.13.10 ity of [place] 4[place].2.[place] [phone] [address] 2021-04-12 2021-04-12 Outpatient R SY [facility] [id number] Univers 09:30:00 09:30:00 [place] tylery o [facility] 2021-04-12 2021-04-12 Outpatient R SY [facility] [id number] Univers 09:30:00 09:30:00 CATRINAJUAN tylery o [facility] 2021-04-12 2021-04-12 Orders Doctor WILLS 1.2.840.114 [id number] Univers 00:00:00 00:00:00 Only Unassigned, MIKE 350.1.13.10 ity of [place] [facility] 4.2.7.2.686 Babak as [id number] [address] 2021-04-12 2021-04-12 Telephone [facility] 1.2.145.015 [id number] Univers 00:00:00 00:00:00 [place] ARANDA 350.1.13.10 ity [facility] 4.2.7.2.[place] [phone] [facility] 059 [facility] 2021-03-29 2021-03-29 Outpatient R [facility] [id number] Univers 11:20:00 11:20:58 [place] scotty o f [facility] 2021-03-29 2021-03-29 Office [facility] 1.2.840.114 [id number] Univers 11:20:00 11:20:58 Visit [place] ARANDA 350.1.13.10 ity of [facility] 4.2.7.2.[place] [phone] [facility] 059 [facility] 2021-03-28 2021-03-28 Station Mechanic Apprentice Farnaz, Andre Lab Main [facility] 1.2.8 40.114 [id number] Univers 12:13:20 12:28:20 Visit [place] Dan 350.1.13.10 ity of [facility] 4.2.7.2.[place] [phone] [facility] 353 [facility] 2021-03-28 2021-03-28 Outpatient R [facility] [id number] Univers 12:15:00 12:15:00 [place] perez o abigail [facility] 2021-03-28 2021-03-28 Outpatient R [facility] [id number] Univers 12:15:00 12:15:00 [place] perez o f [facility] 2021-03-28 2021-03-28 Orders Doctor WILLS 1.2.840.114 [id number] Univers 00:00:00 00:00:00 Only Unassigned, MIKE 350.1.13.10 ity of [place] [facility] 4.2.7.2.686 Babak as [id number] [address] 2021-03-28 2021-03-28 Telephone [facility] 1.2.635.765 [id number] Univers 00:00:00 00:00:00 [place] 350.1.13.10 ity of [place] [phone] [place] 515979 [facility] 2021-03-28 2021-03-28 [facility]ill [facility] 1.2.840.114 [id number] Univers 00:00:00 00:00:00 [place] 350.1.13.10 it[place] of [place] [id number] [address] 2021-03-20 2021-03-20 [facility] [id number] Univers 13:45:00 13:45:00 CATRINAJUAN perez o [facility] 2021-03-20 2021-03-20 Outpatient Joan [facility] [id number] [facility] 13:45:00 13:45:00 CATRINAJUAN tylerjake o [facility] 2021-03-20 2021-03-20 Station Mechanic Apprentice Farnaz, Adc Lab Main [facility] 1.2.8 40.114 [id number] Univers 11:58:29 12:13:29 Visit [place] Dan 350.1.13.10 ity of [place].2.[place] [phone] [facility] 353 [facility] 2021-03-20 2021-03-20 Telephone [facility] 1.2.629.560 [id number] Univers 00:00:00 00:00:00 [place] 350.1.13.10 ity of [place] [id number] [address] 2021-03-15 2021-03-15 Outpatient [facility] [id number] Univers 09:15:00 09:15:00 JOSE itjake [facility] 2021-03-15 2021-03-15 Outpatient Joan [facility] [id number] Univers 09:15:00 09:15:00 JOSE ity of [facility] 2021-03-15 2021-03-15 Station Mechanic Apprentice Andre Osei Lab Main [facility] 1.2.8 40.114 [id number] Univers 08:14:37 08:29:37 Visit Jose [place] ROSI 350.1.13. 10 ity of [facility] 4.2.7.2.[place] [phone] Ma dical NAL 353 [facility] 2021-03-15 2021-03-15 Orders Doctor JOHANN 1.2.840.114 [id number] Univers 00:00:00 00:00:00 Only Unassigned, MIKE 350.1.13.10 ity of [place] [facility] 4.2.7.2.686 Babak as [phone] [facility] [address] 2021-03-15 2021-03-15 Telephone [facility] 1.2.597.044 [id number] Univers 00:00:00 00:00:00 [place] ARANDA 350.1.13.10 ity of [place].2.[place] [phone] Ma dical NAL 059 [facility] 2021-03-07 2021-03-07 Transition GamezALESIA 1.2.840.114 [id number] Univers 00:00:00 00:00:00 of Care Georgie SAMANIEGO 350.1.13.10 it y of [place]2.7.2.[place] [id number] [facility] [address] 2021-03-01 2021-03-06 Inpatient X FABIOLA [facility] BERENICE [id number] Univers 11:31:00 15:17:00 CALEB perez of [facility] 2021-03-01 2021-03-06 Hospital Jamie Deng [facility] 1.2.840.1 14 [id number] Univers 11:31:00 15:17:00 Encounter Caleb Rodrigues 350.1.13.10 ity of [place].2.[place] [id number] [facility] [address] 2021-03-01 2021-03-01 Outpatient X FABIOLA, [facility] BERENICE [id number] Univers 11:31:00 11:31:00 CALEB itjake of [facility] 2021-02-27 2021-02-27 Outpatient R SY, [facility] [id number] Univers 11:20:00 11:44:55 [place] perez o f [facility] 2021-02-27 2021-02-27 Outpatient R SY, [facility] [id number] Univers 11:20:00 11:44:55 [place] perez o f [facility] 2021-02-27 2021-02-27 Outpatient R SY, [facility] [id number] Univers 11:20:00 11:44:55 [place] perez o [facility] 2021-02-27 2021-02-27 Outpatient R SY, [facility] [id number] Univers 11:20:00 11:44:55 [place] perez o [facility] 2021-02-27 2021-02-27 Office Sy, [facility] 1.2.840.114 [id number] Univers 10:54:32 11:44:55 Visit [place] GRAYSONJAVIER 350.1.13.10 ity of [facility] 4.2.7.2.[place] [id number] Ma dical NAL 059 [facility] 2021-02-27 2021-02-27 Outpatient R SY, [facility] [id number] Univers 10:30:00 10:30:00 [place] perez o [facility] 2021-02-27 2021-02-27 Outpatient R SY, [facility] [id number] Univers 10:30:00 10:30:00 [place] scotty o [facility] 2021-02-27 2021-02-27 Station Mechanic Apprentice Farnaz, Andre Lab Main [facility] 1.2.8 40.114 [id number] Univers 09:52:58 10:07:58 Visit [place] Dan 350.1.13.10 ity of [facility] 4.2.7.2.[place] [id number] Ma dical NAL 353 [facility] 2021-02-27 2021-02-27 Orders Doctor JOHANN 1.2.840.114 [id number] Univers 00:00:00 00:00:00 Only Unassigned, MIKE 350.1.13.10 ity of [place] [facility] 4.2.7.2.686 Babak as [id number] [address] 2021-02-27 2021-02-27 Telephone [facility] 1.2.894.813 [id number] Univers 00:00:00 00:00:00 [place] ARANDA 350.1.13.10 ity of [facility] 4.2.7.2.[place] [id number] Ma dical NAL 9 [facility] 2021-02-24 2021-02-24 Outpatient R [facility] [id number] Univers 10:45:00 10:45:00 [place] perez o [facility] 2021-02-24 2021-02-24 Outpatient R [facility] [id number] Univers 10:45:00 10:45:00 [place] perez o [facility] 2021-02-24 2021-02-24 Station Mechanic Apprentice Farnaz, Adc Lab Main [facility] 1.2.8 40.114 [id number] Univers 09:17:46 09:32:46 Visit [place] Dan 350.1.13.10 ity of [facility] [id number] [phone] Ma dical NAL 353 [facility] 2021-02-24 2021-02-24 Telephone [facility] [id number] Univers 00:00:00 00:00:00 [place] ARANDA 350.1.13.10 it[place] [phone] Ma dical NAL 059 [facility] 2021-02-24 2021-02-24 Telephone [facility] 1.2.569.202 [id number] Univers 00:00:00 00:00:00 [place] [id number] [facility] [id number] [phone] Ma dical NAL 059 [facility] 2021-02-24 2021-02-24 Telephone [facility] [id number] Univers 00:00:00 00:00:00 [place] ARANDA [id number] [facility] [id number] [phone] Ma dicnd NAL 059 [facility] 2021-02-15 2021-02-15 Station Mechanic Apprentice Farnaz, Adc Lab Main [facility] 1.2.8 40.114 [id number] Univers 09:47:39 10:02:39 Visit Sy, [place] ARANDA [id number] it[place] of [place] [phone] [facility] NAL 353 [facility] 2021-02-15 2021-02-15 Outpatient R [facility] [id number] Univers 09:45:00 09:45:00 [place] perez o [facility] 2021-02-15 2021-02-15 Outpatient R [facility] [id number] Univers 09:45:00 09:45:00 [place] perez o [facility] 2021-02-15 2021-02-15 Orders Doctor JOHANN 1.2.840.114 [id number] Univers 00:00:00 00:00:00 Only Unassigned, MIKE 350.1.13.10 ity of [place] [facility] 4.2.7.2.686 Babak as [id number] [address] 2021-02-15 2021-02-15 Telephone [facility] 1.2.063.567 [id number] Univers 00:00:00 00:00:00 [place] ARANDA [id number] [facility] [id number] [phone] Ma dicnd NAL 9 [facility] 2021-02-10 2021-02-10 Transition ALESIA Gamez 1.2.840.114 [id number] Univers 00:00:00 00:00:00 of Care Georgie SAMANIEGO 350.1.13.10 [place] [phone] [facility] [address] 2021-02-04 2021-02-09 Inpatient X MIGUEL SANTA [facility] [id number] Univers 20:57:00 13:26:00 JENNIFER ity of [facility] 2021-02-04 2021-02-09 Hospital Jamie Deng [facility] 1.2.840.1 [id number] Univers 20:57:00 13:26:00 Encounter Wilber Flowers 350.1.13.10 ity of Abhi Lolandanii FERRELL 4.2.7.2.686 [facility] [phone] [facility] 0[address] Branch 2021-01-02 2021-01-02 Station Mechanic Apprentice Farnaz, Adc Lab Main [facility] 1.2.8 40.114 [id number] Univers 11:35:12 11:50:12 Visit [place] 350.1.13.10 [place] [phone] Ma dical [facility] 353 [facility] 2021-01-02 2021-01-02 Outpatient R [facility] [id number] Univers 11:45:00 11:45:00 [place] perez o [facility] 2021-01-02 2021-01-02 Outpatient R SY, [facility] [id number] Univers 11:45:00 11:45:00 [place] perez o [facility] 2021-01-02 2021-01-02 Orders Doctor JOHANN 1.2.840.114 [id number] Univers 00:00:00 00:00:00 Only Unassigned, MIKE 350.1.13.10 ity of [place] [facility] 4.2.7.2.686 Babak as [phone] [facility] [address] 2021-01-02 2021-01-02 Telephone Sy, [facility] 1.2.686.975 [id number] Univers 00:00:00 00:00:00 [place] Aranda 350.1.13.10 [place] [phone] Ma dical nal 059 [facility] 2021-01-02 2021-01-02 [facility] 1.2.840.114 [id number] Univers 00:00:00 00:00:00 [place] 350.1.13.10 [place] [phone] Ma dical nal 059 [facility] 2020-12-07 2020-12-07 Station Mechanic Apprentice Farnaz, Adc Lab Main [facility] 1.2.8 40.114 [id number] Univers 08:05:37 08:20:37 Visit Sy, [place] 350.1.13.10 [place] [phone] [facility] 2020-12-07 2020-12-07 Outpatient R SY, [facility] [id number] Univers 08:00:00 08:00:00 QIANGJUN ity o [facility] 2020-12-07 2020-12-07 Outpatient R SY, [facility] [id number] Univers 08:00:00 08:00:00 [place] scotty o [facility] 2020-12-07 2020-12-07 Telephone [facility] 1.2.578.201 [id number] Univers 00:00:00 00:00:00 [place] 350.1.13.10 [place] [phone] Ma dical nal [address] [place] [address] 2020-11-23 2020-11-23 Outpatient R SY, [facility] [id number] Univers 13:37:45 23:59:00 QIANGJUN ity o [facility] 2020-11-23 2020-11-23 Outpatient R SY, [facility] [id number] Univers 13:37:45 23:59:00 QIANGJUN ity o f [facility] 2020-11-14 2020-11-14 Outpatient R SY, [facility] [id number] Univers 13:40:00 13:40:00 QIANGJUN ity o [facility] 2020-10-12 2020-10-12 Outpatient R SY, [facility] [id number] Univers 08:00:00 08:00:00 [place] perez [facility] 2020-09-27 2020-09-27 Outpatient R SY, [facility] [id number] Univers 13:00:00 13:00:00 [facility] 2020-09-22 2020-09-22 Outpatient R SY, [facility] [id number] Univers 09:30:00 09:30:00 [facility] 2020-09-07 2020-09-07 Outpatient R SY, [facility] [id number] Univers 08:45:00 08:45:00 [facility] 2020-08-19 2020-08-19 Outpatient R SY, [facility] [id number] Univers 08:45:00 08:45:00 [facility] 2020-08-15 2020-08-15 Outpatient R SY, [facility] [id number] Univers 10:45:00 10:45:00 [facility] ana [facility] 2020-08-08 2020-08-08 Outpatient R SY, [facility] [id number] Univers 11:45:00 11:45:00 [facility] ana [facility] 2020-08-08 2020-08-08 Station Mechanic Apprentice Farnaz, Andre [facility] 1.2.840.114 [id number] 11:14:44 11:29:44 Visit Lab Main Rosi 350.1.13.10 [place] 4.2.7.2.686 Professio [phone] [facility] 353 Building 2020-08-08 2020-08-08 Orders Doctor JOHANN 1.2.840.114 [id number] 00:00:00 00:00:00 Only Unassigned, MIKE 350.1.13.10 [place] [facility] 4.2.7.2.686 [id number] 009 2020-08-08 2020-08-08 Telephone Sy, [facility] 1.2.902.497 [id number] 00:00:00 00:00:00 Catrinamerzaheer [place] 350.1.13.10 [place] 4.2.7.2.686 Professio [phone] [facility] 059 [facility] 2020-07-25 2020-07-25 Telephone [facility] 1.2.047.989 [id number] 00:00:00 00:00:00 [place] 350.1.13.10 [place] 4.2.7.2.686 Professio [phone] [address] 2020-07-20 2020-07-20 Outpatient R [facility] [id number] Univers 11:45:00 11:45:00 [place] perez o f [facility] 2020-07-20 2020-07-20 Station Mechanic Apprentice Farnaz [facility] 1.2.840.114 [id number] 10:37:03 10:52:03 Visit Lab Main [place] 350.1.13.10 [place] 4.2.7.2.686 Professio [phone] [address] 2020-07-20 2020-07-20 Orders Doctor JOHANN 1.2.840.114 [id number] 00:00:00 00:00:00 Only Unassigned, MIKE 350.1.13.10 [place] [facility] 4.2.7.2.686 [phone] [facility] 2020-07-20 2020-07-20 [facility] 1.2.052.863 [id number] 00:00:00 00:00:00 Catrinamerzaheer [place] 350.1.13.10 [place] 4.2.7.2.686 Professio [phone] [address] 2020-07-13 2020-07-13 Outpatient R [facility] [id number] Univers 10:15:00 10:15:00 [place] jimenes [facility] 2020-07-13 2020-07-13 Station Mechanic Apprentice Farnaz [facility] 1.2.840.114 [id number] 09:23:20 09:38:20 Visit Lab Main [place] 350.1.13.10 [place] 4.2.7.2.686 Professio [phone] [facility] 353 [facility] 2020-07-13 2020-07-13 Telephone [facility] [id number] 00:00:00 00:00:00 Qiangjun [place] 350.1.13.10 [place] 4.2.7.2.686 Professio [phone] [address] 2020-06-19 2020-06-19 [address]308[address]901 [id number] 9428 00:00:00 00:00:00 Qiangjun [place] 350.1.13.10 [place] 4.2.7.2.686 Professio [phone] [address] 2020-06-17 2020-06-17 Station Mechanic Apprentice Farnaz [address]840.114 [id number] 09:22:55 09:37:55 Visit Lab Main [place] 350.1.13.10 [place] 4.2.7.2.686 Professio [phone] [address] 2020-06-17 2020-06-17 Outpatient R [facility] [id number] Univers 09:30:00 09:30:00 [place] perez o [facility] 2020-06-08 2020-06-08 [address]151.645 [id number] 00:00:00 00:00:00 Qiangjun [place] 350.1.13.10 [place] 4.2.7.2.686 Professio [phone] [address] 2020-06-07 2020-06-07 Station Mechanic Apprentice Farnaz [address]840.114 [id number] 08:57:47 09:12:47 Visit Lab Main [place] 350.1.13.10 [place] 4.2.7.2.686 Professio [phone] [address] 2020-06-07 2020-06-07 [facility] [id number] Univers 09:00:00 09:00:00 QIAJUAN ity o f [facility] 2020-05-23 2020-05-23 [facility] [id number] Univers 09:15:00 09:15:00 [place] perez o abigail [facility] 2020-05-16 2020-05-16 Outpatient R SY [facility] [id number] Univers 11:30:00 11:30:00 [place] perez o abigail [facility] 2020-05-16 2020-05-16 Station Mechanic Apprentice Farnaz [facility] 1.2.840.114 [id number] 11:09:17 11:24:17 Visit Lab Main [place] 350.1.13.10 [place] 4.2.7.2.686 Professio [phone] [facility] 353 [facility] 2020-05-16 2020-05-16 Orders Doctor JOHANN 1.2.840.114 [id number] 00:00:00 00:00:00 Only Unassigned, MIKE 350.1.13.10 [place] [facility] 4.2.7.2.686 [id number] 009 2020-05-16 2020-05-16 Telephone [facility] 1.2.681.220 [id number] 00:00:00 00:00:00 [place] 350.1.13.10 [place] 4.2.7.2.686 Professio [phone] [facility] 2020-05-11 2020-05-11 Station Mechanic Apprentice Farnaz [facility] 1.2.840.114 [id number] 09:25:07 09:40:07 Visit Lab Main [place] 350.1.13.10 [place] 4.2.7.2.686 Professio [phone] [address] 2020-05-11 2020-05-11 Outpatient R JEREMIAS [facility] [id number] Univers 09:30:00 09:30:00 SENDIL ana [facility] 2020-05-11 2020-05-11 Telephone [facility] 1.2.104.633 [id number] 00:00:00 00:00:00 [place] 350.1.13.10 [place] 4.2.7.2.686 Professio [phone] [facility] 059 [facility] 2020-05-11 2020-05-11 Telephone [facility] 1.2.924.085 [id number] 00:00:00 00:00:00 Catrinamerzaheer [place] 350.1.13.10 [place] 4.2.7.2.686 Professio [phone] [facility] 2020-05-04 2020-05-04 [facility] 1.2.043.091 [id number] 00:00:00 00:00:00 [place] 350.1.13.10 [place] 4.2.7.2.686 Professio [phone] [address] 2020-05-03 2020-05-03 Outpatient R [facility] [id number] [facility] 11:30:00 11:30:00 [place] perez [facility] 2020-05-03 2020-05-03 Station [facility]ic Apprent[facility] 1.2.840.114 [id number] 10:05:00 10:20:00 Visit Lab Main [place] 350.1.13.10 [place] 4.2.7.2.686 Professio [phone] [address] 2020-05-03 2020-05-03 Orders Doctor JOHANN 1.2.840.114 [id number] 00:00:00 00:00:00 Only Unassigned, MIKE 350.1.13.10 [place] [facility] 4.2.7.2.686 [id number] 009 2020-04-27 2020-04-27 Station Mechanic Apprentice [facility] 1.2.840.114 [id number] 08:24:03 08:39:03 Visit Lab Main [place] 350.1.13.10 [place] 4.2.7.2.686 Professio [phone] [address] 2020-04-27 2020-04-27 Outpatient R [facility] [id number] Univers 08:30:00 08:30:00 [place] perez o [facility] 2020-04-27 2020-04-27 [facility] 1.2.976.735 [id number] 00:00:00 00:00:00 Qiajuan Aranda 350.1.13.10 [place] 4.2.7.2.686 Professio [phone] nal 059 [facility] 2020-04-20 2020-04-20 Refill [facility] 1.2.840.114 [id number] 00:00:00 00:00:00 [place] 350.1.13.10 [place] 4.2.7.2.686 Professio [phone] [address] 2020-04-01 2020-04-01 Outpatient R IZQUIERDO, [facility] [id number] Univers 10:15:00 10:15:00 NICK ana [facility] 2020-03-29 2020-03-29 Office Sy, [facility] 1.2.840.114 [id number] 14:32:40 15:25:41 Visit [place] 350.1.13.10 [place] 4.2.7.2.686 Professio [phone] [address] 2020-03-29 2020-03-29 Outpatient R SY, [facility] [id number] Univers 14:40:00 14:40:00 [place] perez o [facility] 2020-03-22 2020-03-22 Outpatient R SY, [facility] [id number] Univers 15:30:00 15:30:00 [place] perez o [facility] 2020-03-15 2020-03-15 Outpatient R SY, [facility] [id number] Univers 11:15:00 11:15:00 [place] perez o [facility] 2020-02-24 2020-02-24 Outpatient R SY, [facility] [id number] Univers 08:40:00 08:40:00 [place] perez o [facility] 2020-02-17 2020-02-17 Outpatient R SY, [facility] [id number] Univers 09:15:00 09:15:00 [place] perez o [facility] 2020-01-11 2020-01-11 Outpatient R SY, [facility] [id number] Univers 12:45:00 12:45:00 [place] scotty o [facility] 2019-12-17 2019-12-17 Outpatient R SY, [facility] [id number] Univers 11:00:00 11:00:00 [place] jimenes [facility] 2019-11-26 2019-11-26 Outpatient R SY, [facility] [id number] Univers 12:45:00 12:45:00 [place] perez [facility] 2019-10-30 2019-10-30 Outpatient R RADIOLOGY [facility] [id number] Univers 00:00:00 00:00:00 [facility] 2019-10-20 2019-10-20 Outpatient R MCDERMOTT, ALICJA [facility] [id number] Univers 09:30:00 09:30:00 [facility] 2019-09-30 2019-09-30 Outpatient R SY, [facility] [id number] Univers 08:30:00 08:30:00 CATRINAZAHEER perez [facility] 2019-09-08 2019-09-08 Outpatient R SY, [facility] [id number] Univers 15:20:00 15:20:00 CATRINAZAHEER perez [facility] 2019-09-03 2019-09-03 Outpatient R SY, [facility] [id number] Univers 09:00:00 09:00:00 CATRINAZAHEER perez [facility] 2019-07-24 2019-07-24 Outpatient R SY, [facility] [id number] Univers 11:45:00 11:45:00 [facility] 2019-06-22 2019-06-22 Outpatient R SY, [facility] [id number] Univers 13:30:00 13:30:00 [facility] Results Test Description Test Time Test Comments [...] indications. Lab Interpretation (test code Abnormal = 10681-4) [facility] / [id number] 15:08:40 Test Item Value Reference Range Interpretation Comments PROTIME PATIENT (test 24.8 See_Comment H [Auto mated message] code = 5964-2) The system [employer] generated this result transmitted ref erence range: 12.0 - 1 4.7 Seconds. The reference range was not used to int erpret this result as normal/abnormal . INR (test code = 6301-6) 2.3 Nor mal INR <1.1; Warfarin Therap eutic range 2.0 to 3. 0 or 2.5 to 3.5, dep ending upon the indica tions. Lab Interpretation (test Abnormal code = 53003-4) [facility] / [id number] 15:08:40 Test Item Value Reference Range Interpretation Comments PROTIME PATIENT (test 24.8 See_Comment H [Auto mated message] code = 5964-2) The system [employer] generated this result transmitted ref erence range: 12.0 - 1 4.7 Seconds. The reference range was not used to int erpret this result as normal/abnormal . INR (test code = 6301-6) 2.3 Nor mal INR <1.1; Warfarin Therap eutic range 2.0 to 3. 0 or 2.5 to 3.5, dep ending upon the indica tions. Lab Interpretation (test Abnormal code = 84518-2) [facility] / [id number] 18:32:10 Test Item Value Reference Range Interpretation Comments PROTIME PATIENT (test 24.4 See_Comment H [Auto mated message] code = 5964-2) The system [employer] generated this result transmitted ref erence range: 12.0 - 1 4.7 Seconds. The reference range was not used to int erpret this result as normal/abnormal . INR (test code = 6301-6) 2.2 Nor mal INR <1.1; Warfarin Therap eutic range 2.0 to 3. 0 or 2.5 to 3.5, dep ending upon the indica tions. Lab Interpretation (test Abnormal code = 81214-2) [facility] (MAR[facility])2022-06-11 22:45:29 Test Item Value Reference Range Interpretation Comments Height (test code = 63 in 5835896479) Weight (test code = 102 lbs 1294993111) Systolic BP (test 123 mmHg code = 1947898858) Diastolic BP (test 64 mmHg code = 0167535814) Heart Rate (test code 61 bpm = 8064942251) LVOT peak amrita (test 114.0 cm/s code = 3701124513) LVOT mn grad (test 3.0 mmHg code = 5680112152) Aortic valve mean 209.0 cm/s velocity (test code = 1562202107) Ao peak amrita (test 333.0 cm/s code = 6612323026) Ao VTI (test code = 71.7 cm 9365171558) AV LVOT peak gradient 5.2 mmHg (test code = 1182894856) LVOT peak VTI (test 29.0 cm code = 3076698336) AV Doppler amrita index 0.34 ratio VTI (test code = 5886687612) LV V1 mean (test code 82.60 cm/s = 6497258638) Ao max PG (test code 44.40 mm[Hg] = 9251699412) AV peak gradient 44.4 mmHg (test code = 2059873493) AV mean gradient 21.0 mmHg (test code = 1390847452) Radiology Study observation (narrative) (test code = 83741-1) ROBERT (test code = ROBERT) ?Aortic?Valve: Mechanical [...] captured. The probe was inserted by the field tech. Probe in 0930. Probe out 0940. Moderate sedation was given. 4% Lidocaine was used for local oropharyngeal anesthesia. 1 mg of midazolam and 50 mcg of Fentanyl were administered during the study. There were no complications during the procedure. Based on abnormal findings of 2D echocardiogram, 3D was performed on an acquisition scanner for further assessment of the aortic valve. MR RN [facility] METABOLIC PANEL (NA, K, CL, CO2, GLUCOSE, BUN, CREATININE, CA)2022-06-11 09:30:25 Test Item Value Reference Range Interpretation Comments NA (test code = 137 mmol/L 135-145 0137321806) K (test code = 4.3 mmol/L 3.5-5.0 6150843094) CL (test code = 104 mmol/L 98-108 5780816124) CO2 TOTAL (test code = 30 mmol/L 23-31 2350010784) AGAP (test code = 3 2-16 9862849411) BUN (test code = 19 mg/dL 7-23 5734571752) GLUCOSE (test code = 102 mg/dL 70-110 0101142205) CREATININE (test code = 0.93 mg/dL 0.50-1.04 2757607466) CALCIUM (test code = 8.5 mg/dL 8.6-10.6 L 4729310627) eGFR (test code = 59.8 mL/min/1.73m2 4653835287) ROBERT (test code = ROBERT) Association of [...] tests). Lab Interpretation Abnormal (test code = 81864-6) [facility]2023-02-27 09:30:25 Test Item Value Reference Range Interpretation Comments MAGNESIUM (test code = 4703467177) 2.1 mg/dL 1.7-2.4 Lab Interpretation (test code = Normal 44929-2) [facility] Time / [id number] 09:18:08 Test Item Value Reference Range Interpretation Comments PROTIME PATIENT (test 19.8 See_Comment H [Auto mated message] code = 5964-2) The system [employer] generated this result transmitted ref erence range: 10.1 - 1 2.6 Seconds. The reference range was not used to int erpret this result as normal/abnormal . INR (test code = 6301-6) 1.8 Nor mal INR <1.1; Warfarin Therap eutic range 2.0 to 3. 0 or 2.5 to 3.5, dep ending upon the indica tions. Lab Interpretation (test Abnormal code = 93226-2) [facility]wayaPTT2023-02-27 09:18:08 Test Item Value Reference Range Interpretation Comments APTT Patient (test code 89 See_Comment H [Au tomated message] = 3543-2) The system [employer] generated this result transmitted ref erence range: 26 - 36 Seconds. The reference range was not used to int erpret this result as normal/abnormal . Lab Interpretation (test Abnormal code = 01857-2) [facility]2023-02-26 08:57:55 Test Item Value Reference Range Interpretation Comments MAGNESIUM (test code = 6289453731) 1.8 mg/dL 1.7-2.4 Lab Interpretation (test code = Normal 31655-9) [facility] (NA, K, CL, CO2, GLUCOSE, BUN, CREATININE, CA)2022-06-10 08:57:55 Test Item Value Reference Range Interpretation Comments NA (test code = 137 mmol/L 135-145 0052130054) K (test code = 4.0 mmol/L 3.5-5.0 9416296211) CL (test code = 100 mmol/L 98-108 2482807072) CO2 TOTAL (test code = 32 mmol/L 23-31 H 9250409013) AGAP (test code = 5 2-16 4684351763) BUN (test code = 24 mg/dL 7-23 H 4078320937) GLUCOSE (test code = 116 mg/dL 70-110 H 5402713741) CREATININE (test code = 1.00 mg/dL 0.50-1.04 4046948271) CALCIUM (test code = 9.1 mg/dL 8.6-10.6 2395195987) eGFR (test code = 55.0 mL/min/1.73m2 4458325226) ROBERT (test code = ROBERT) Association of [...] tests). Lab Interpretation Abnormal (test code = 44861-3) [facility] Time / [id number] 08:46:38 Test Item Value Reference Range Interpretation Comments PROTIME PATIENT (test 17.4 See_Comment H [Auto mated message] code = 5964-2) The system [employer] generated this result transmitted ref erence range: 10.1 - 1 2.6 Seconds. The reference range was not used to int erpret this result as normal/abnormal . INR (test code = 6301-6) 1.6 Nor mal INR <1.1; Warfarin Therap eutic range 2.0 to 3. 0 or 2.5 to 3.5, dep ending upon the indica tions. Lab Interpretation (test Abnormal code = 91841-1) [facility]wayaPTT2023-02-26 08:46:38 Test Item Value Reference Range Interpretation Comments APTT Patient (test code 85 See_Comment H [Au tomated message] = 3173-2) The system [employer] generated this result transmitted ref erence range: 26 - 36 Seconds. The reference range was not used to int erpret this result as normal/abnormal . Lab Interpretation (test Abnormal code = 20061-2) [facility] WITH [id number] 08:39:15 Test Item Value Reference Range Interpretation Comments WBC (test code = 4.75 See_Comment [Automated 6690-2) message] The sy stem which generated this result transmitted reference range : 4.30 - 11.10 10*3/?L. The reference range was not used to interpret this result as normal/abnormal . RBC (test code = 3.55 See_Comment L [Automated 789-8) message] The sy [...] (test code = 58.1 fL 39.0-49.9 H 02107-7) RDW-CV (test code = 16.1 % 12.0-15.5 H 788-0) PLT (test code = 197 See_Comment [Automated 777-3) message] The sy stem which generated this result transmitted reference range : 166 - 358 10*3/ ?L. The reference r tali was not used to interpret this result as normal/abnormal . MPV (test code = 10.2 fL 9.5-12.9 43930-5) NRBC/100 WBC (test 0.0 See_Comment [Automat ed code = 8926146219) message] The system which generated this result transmitted reference range : 0.0 - 10.0 /100 WBCs. The refer ence range was not u sed to interpret th is result as normal/abnormal . NRBC x10^3 (test code See_Comment [Auto mated = 5291555475) message] The s ystem which generated this result transmitted reference range : 10*3/?L. The reference range was not used to interpret this result as normal/abnormal . GRAN MAT (NEUT) % 58.4 % (test code = 770-8) IMM GRAN % (test code 0.20 % = 9040011960) LYMPH % (test code = 24.2 % 736-9) MONO % (test code = 10.9 % 5905-5) EOS % (test code = 5.5 % 713-8) BASO % (test code = 0.8 % 706-2) GRAN MAT x10^3(ANC) 2.77 10*3/uL 1.88-7.09 (test code = 5928385610) IMM GRAN x10^3 (test 0.00-0.06 code = 0307255065) LYMPH x10^3 (test code 1.15 10*3/uL 1.32-3.29 L = 731-0) MONO x10^3 (test code 0.52 10*3/uL 0.33-0.92 = 742-7) EOS x10^3 (test code = 0.26 10*3/uL 0.03-0.39 711-2) BASO x10^3 (test code 0.04 10*3/uL 0.01-0.07 = 704-7) Lab Interpretation Abnormal (test code = 32195-8) [facility]2023-02-25 10:39:27 Test Item Value Reference Range Interpretation Comments MAGNESIUM (test code = 0332234003) 1.6 mg/dL 1.7-2.4 L Lab Interpretation (test code = Abnormal 28671-7) [facility] METABOLIC PANEL (NA, K, CL, CO2, GLUCOSE, BUN, CREATININE, CA)2022-06-09 10:39:27 Test Item Value Reference Range Interpretation Comments NA (test code = 139 mmol/L 135-145 [id number]) K (test code = 4.1 mmol/L 3.5-5.0 9916907857) CL (test code = 96 mmol/L 98-108 L [id number]) CO2 TOTAL (test code = 36 mmol/L 23-31 H 1555042781) AGAP (test code = 7 2-16 0458535269) BUN (test code = 27 mg/dL 7-23 H [id number]) GLUCOSE (test code = 116 mg/dL 70-110 H 8882641179) CREATININE (test code = 1.21 mg/dL 0.50-1.04 H 2403111531) CALCIUM (test code = 9.3 mg/dL 8.6-10.6 1420796639) eGFR (test code = 44.1 mL/min/1.73m2 6509173662) ROBERT (test code = ROBERT) Association of [...] tests). Lab Interpretation Abnormal (test code = 05509-9) [facility] [facility]way[facility]throm[facility] Time / [id number] 10:26:27 Test Item Value Reference Range Interpretation [...] tions. Lab Interpretation (test Abnormal code = 28368-4) [facility] WITH [id number] 10:16:07 Test Item Value Reference Range Interpretation Comments WBC (test code = 7.65 See_Comment [Automated 6690-2) message] The sy stem which generated this result transmitted reference range : 4.30 - 11.10 10*3/?L. The reference range was not used to interpret this result as normal/abnormal . RBC (test code = 3.99 See_Comment [Automated 789-8) message] The sy stem which [...] (test code = 58.8 fL 39.0-49.9 H 90500-0) RDW-CV (test code = 16.3 % 12.0-15.5 H 788-0) PLT (test code = 244 See_Comment [Automated 777-3) message] The sy stem which generated this result transmitted reference range : 166 - 358 10*3/ ?L. The reference r tali was not used to interpret this result as normal/abnormal . MPV (test code = 10.1 fL 9.5-12.9 31939-1) NRBC/100 WBC (test 0.0 See_Comment [Automat ed code = 4639324848) message] The system which generated this result transmitted reference range : 0.0 - 10.0 /100 WBCs. The refer ence range was not u sed to interpret th is result as normal/abnormal . NRBC x10^3 (test code See_Comment [Auto mated = 0614049831) message] The s ystem which generated this result transmitted reference range : 10*3/?L. The reference range was not used to interpret this result as normal/abnormal . GRAN MAT (NEUT) % 75.8 % (test code = 770-8) IMM GRAN % (test code 0.30 % = 5643530275) LYMPH % (test code = 12.5 % 736-9) MONO % (test code = 8.5 % 5905-5) EOS % (test code = 2.0 % 713-8) BASO % (test code = 0.9 % 706-2) GRAN MAT x10^3(ANC) 5.80 10*3/uL 1.88-7.09 (test code = 6065918262) IMM GRAN x10^3 (test 0.00-0.06 code = 3472710264) LYMPH x10^3 (test code 0.96 10*3/uL 1.32-3.29 L = 731-0) MONO x10^3 (test code 0.65 10*3/uL 0.33-0.92 = 742-7) EOS x10^3 (test code = 0.15 10*3/uL 0.03-0.39 711-2) BASO x10^3 (test code 0.07 10*3/uL 0.01-0.07 = 704-7) Lab Interpretation Abnormal (test code = 27670-8) [facility] 21:12:16 Test Item Value Reference Range Interpretation Comments Height (test code = 63 in 5774512108) Weight (test code = 101 lbs 9351389009) Systolic BP (test code 127 mmHg = 5132673408) Diastolic BP (test code 43 mmHg = 0136076219) Heart Rate (test code = 50 bpm 2279336735) BSA (test code = 1.45 m2 1083062140) LVOT diameter (test 1.62 cm code = 0441687134) LVOT area (test code = 2.05 cm2 9539602306) Ao root diam (test code 2.34 cm = 3259293357) Aortic root (test code 2.34 cm = 1850757588) Ao root annulus (test 2.34 cm code = 8917735503) LA size (test code = 4.9 cm 4386808508) TR Peak Amrita (test code 209.0 cm/s = 0740037602) Triscuspid Valve 17.5 mmHg Regurgitation Peak Gradient (test code = 3167458727) PV REGURGITATION PEAK 8.9 mmHg GRADIENT (test code = 5998736656) PI dec slope (test code 81.30 cm/s2 = 3821935110) E wave decelartion time 0.26 s (test code = 0689771344) MV Peak A Amrita (test 58.0 cm/s code = 8440834331) MV Peak E Amrita (test 116.0 cm/s code = 9879526151) E/A ratio (test code = 2.00 ratio 3926802387) MR max PG (test code = 125.90 mm[Hg] 9612024912) MR max amrita (test code = 561.00 cm/s 2729323496) Mr max amrita (test code = 561.0 m/s 5804916646) MV Prop V (test code = 33.60 cm/s 3253425693) LAV(MOD-sp4) (test code 50.40 mL = 4380773431) MV E/e' septal (test 5.1 cm/s code = 7297339985) Tapse (test code = 1.37 cm 8636773551) LVOT stroke volume 42.60 cm3 (test code = 9988320703) LVOT peak amrita (test 96.3 cm/s code = 5422802344) LVOT mn grad (test code 1.6 mmHg = 4848331768) AV LVOT peak gradient 3.7 mmHg (test code = 3693979504) LVOT peak VTI (test 20.8 cm code = 7084243376) LV V1 mean (test code = 59.50 cm/s 0533516649) LA Volume Index (BP) 39.6 mL/m2 (test code = 9905063928) LA volume (BP) (test 57.2 mL code = 2991049589) LAV(MOD-sp2) (test code 59.90 mL = 2456857351) AV regurgitation 482.7 ms pressure 1/2 time (test code = 5180232253) AI dec slope (test code 212.30 cm/s2 = 1996805614) AI max amrita (test code = 349.90 cm/s 3812671478) AI max PG (test code = 49.00 mm[Hg] 4947096511) LVIDD (test code = 3.90 cm 2650844864) Left Ventricular End 66.7 mL Diastolic Volume by Teichholz Method (test code = 3360495) EF(Teich) (test code = 67.60 % 2583538003) FS (test code = 37 % 9328949672) EF - 2D (test code = 67.60 % 70816618) IVS (test code = 1.22 cm 7498256359) Interventricular Septum 1.22 cm Diastolic Thickness by 2D (test code = 4967517) LVPWD (test code = 1.12 cm 9430239662) PW (test code = 1.12 cm 0.6-1.6 4689695248) LVIDS (test code = 2.47 cm 7139615372) Left Ventricular End 21.6 mL Systolic Volume by Teichholz Method (test code = 7429261) Aortic valve mean 210.4 cm/s velocity (test code = 9422488730) Ao peak amrita (test code 307.4 cm/s = 5746910650) Ao VTI (test code = 68.2 cm 4573357994) AV area by cont VTI 0.6 cm2 (test code = 3429878855) AV area peak amrita (test 0.6 cm2 code = 5994928762) Ao max PG (test code = 37.80 mm[Hg] 8747115414) AV peak gradient (test 37.8 mmHg code = 0451279871) AV valve area (test 0.63 cm2 code = 2251744142) AV mean gradient (test 19.8 mmHg code = 8434703348) Radiology Study observation (narrative) (test code = 10238-1) ROBERT (test code = ROBERT) ?Left?Ventricle: Left [...] 2D, color flow Doppler and spectral Doppler. [facility] METABOLIC [id number] 05:06:36 Test Item Value Reference Range Interpretation [...] high >=90 G2 Mildly decreased 60-89 G3a Mild ly to moderately 45-5 9 G3b Moderately to [...] not appl icable for dialysis patien ts Consulting Manager ID - PIAYA [id number] 05:06:35 Test Item Value Reference Range Interpretation Comments MAGNESIUM (BEAKER) 1.7 mg/dL 1.6-2.6 Specimen slightly (test code = 627) hemolyzed Consulting Manager ID - ARMAND LPROTHROMBIN TIME/[id number] 04:57:12 Test Item Value Reference Range Interpretation [...] mechanical heart valves.CBC W/PLT COUNT & AUTO [id number] 04:49:51 Test Item Value Reference Range Interpretation [...] 0.00-1.00 PERCENT (BEAKER) (test code = 2801) [id number] 10:05:40 Test Item Value Reference Range Interpretation Comments PARTIAL THROMBOPLASTIN TIME 49.3 seconds 22.5-36.0 H (BEAKER) (test code = 760) [id number] 07:34:27 Test Item Value Reference Range Interpretation Comments PARTIAL THROMBOPLASTIN TIME > seconds 22.5-36.0 HH (BEAKER) (test code = 760) [id number] 07:21:03 Test Item Value Reference Range Interpretation Comments MAGNESIUM (BEAKER) (test code = 2.0 mg/dL 1.6-2.6 627) Consulting Manager ID - PIAYA LBASIC METABOLIC [id number] 07:21:02 Test Item Value Reference Range Interpretation [...] not appl icable for dialysis patien ts Consulting Manager ID - PIAYA LPROTHROMBIN TIME/[id number] 07:11:04 Test Item Value Reference Range Interpretation [...] mechanical heart valves.CBC W/PLT COUNT & AUTO [id number] 06:42:15 Test Item Value Reference Range Interpretation [...] 0.00-1.00 PERCENT (BEAKER) (test code = 2801) [id number] 01:06:03 Test Item Value Reference Range Interpretation Comments PARTIAL THROMBOPLASTIN TIME 90.3 seconds 22.5-36.0 H (BEAKER) (test code = 760) [id number] 23:34:15 Test Item Value Reference Range Interpretation Comments PARTIAL THROMBOPLASTIN TIME > seconds 22.5-36.0 HH (BEAKER) (test code = 760) [id number] 14:56:56 Test Item Value Reference Range Interpretation Comments PARTIAL THROMBOPLASTIN TIME 40.2 seconds 22.5-36.0 H (BEAKER) (test code = 760) [id number] 12:49:04 Test Item Value Reference Range Interpretation Comments PARTIAL THROMBOPLASTIN TIME 139.9 seconds 22.5-36.0 H (BEAKER) (test code = 760) [id number] 08:00:43 Test Item Value Reference Range Interpretation Comments MAGNESIUM (BEAKER) (test code = 1.5 mg/dL 1.6-2.6 L 627) Consulting Manager ID - MARCOBASIC METABOLIC [id number] 08:00:42 Test Item Value Reference Range Interpretation [...] not appl icable for dialysis patien ts Consulting Manager ID - [id number] 06:54:28 Test Item Value Reference Range Interpretation Comments PARTIAL THROMBOPLASTIN TIME 180.9 seconds 22.5-36.0 HH (BEAKER) (test code = 760) [id number] 06:30:25 Test Item Value Reference Range Interpretation Comments PARTIAL THROMBOPLASTIN TIME 61.3 seconds 22.5-36.0 H (BEAKER) (test code = 760) [id number] 04:16:14 Test Item Value Reference Range Interpretation Comments PARTIAL THROMBOPLASTIN TIME > seconds 22.5-36.0 HH (BEAKER) (test code = 760) PROTHROMBIN TIME/[id number] 03:42:33 Test Item Value Reference Range Interpretation [...] mechanical heart valves.CBC W/PLT COUNT & AUTO [id number] 03:35:52 Test Item Value Reference Range Interpretation [...] 0.00-1.00 PERCENT (BEAKER) (test code = 2801) [id number] 20:27:00 Test Item Value Reference Range Interpretation Comments PARTIAL THROMBOPLASTIN TIME 53.4 seconds 22.5-36.0 H (BEAKER) (test code = 760) [id number] 18:26:32 Test Item Value Reference Range Interpretation Comments PARTIAL THROMBOPLASTIN TIME 112.2 seconds 22.5-36.0 H (BEAKER) (test code = 760) [id number] 10:53:07 Test Item Value Reference Range Interpretation Comments PARTIAL THROMBOPLASTIN TIME 48.7 seconds 22.5-36.0 H (BEAKER) (test code = 760) [id number] 04:20:11 Test Item Value Reference Range Interpretation Comments PARTIAL THROMBOPLASTIN TIME 50.2 seconds 22.5-36.0 H (BEAKER) (test code = 760) [id number] 02:16:45 Test Item Value Reference Range Interpretation Comments PARTIAL THROMBOPLASTIN TIME 120.7 seconds 22.5-36.0 H (BEAKER) (test code = 760) [id number] 01:49:02 Test Item Value Reference Range Interpretation Comments MAGNESIUM (BEAKER) (test code = 1.7 mg/dL 1.6-2.6 627) Consulting Manager ID - [id number] 01:49:02 Test Item Value Reference Range Interpretation Comments PHOSPHORUS (BEAKER) (test code = 4.7 mg/dL 2.3-4.7 604) Consulting Manager ID - BSBASIC METABOLIC [id number] 01:49:01 Test Item Value Reference Range Interpretation [...] eGF R is based on the CKD-EPI 1 equation that d oes not use a race coefficientEsti mated GFR is not as accur ate as Creatinine [place] in predicting glom erular filtration rate . Estimated GFR is not appl icable for dialysis patien ts Consulting Manager ID - BSPROTHROMBIN TIME/[id number] 01:46:19 Test Item Value Reference Range Interpretation [...] mechanical heart valves.CBC W/PLT COUNT & AUTO [id number] 01:29:16 Test Item Value Reference Range Interpretation [...] H PERCENT (BEAKER) (test code = 2801) [id number] 18:43:50 Test Item Value Reference Range Interpretation Comments PARTIAL THROMBOPLASTIN TIME 56.0 seconds 22.5-36.0 H (BEAKER) (test code = 760) [id number] 16:49:50 Test Item Value Reference Range Interpretation Comments PARTIAL THROMBOPLASTIN TIME 123.0 seconds 22.5-36.0 H (BEAKER) (test code = 760) [id number] 08:57:26 Test Item Value Reference Range Interpretation Comments PARTIAL THROMBOPLASTIN TIME 48.3 seconds 22.5-36.0 H (BEAKER) (test code = 760) [id number] 05:52:08 Test Item Value Reference Range Interpretation Comments PARTIAL THROMBOPLASTIN TIME 134.4 seconds 22.5-36.0 H (BEAKER) (test code = 760) PROTHROMBIN TIME/[id number] 05:18:02 Test Item Value Reference Range Interpretation Comments PROTIME (BEAKER) (test code = 14.1 seconds 11.9-14.2 759) INR (BEAKER) (test code = 370) 1.16 <=5.90 RECOMMENDED COUMADIN/WARFARIN INR THERAPY RANGESSTANDARD DOSE: 2.0 - 3.0 Includes: PROPHYLAXIS for venous thrombosis, systemic embolization; TREATMENT for venous thrombosis and/or pulmonary embolus.HIGH RISK: Target INR is 2.5-3.5 for patients with mechanical heart valves.[id number] 05:06:39 Test Item Value Reference Range Interpretation Comments PHOSPHORUS (BEAKER) (test code = 4.9 mg/dL 2.3-4.7 H 604) Consulting Manager ID - BSBASIC METABOLIC [id number] 05:06:38 Test Item Value Reference Range Interpretation [...] not appl icable for dialysis patien ts Consulting Manager ID - [id number] 05:06:38 Test Item Value Reference Range Interpretation Comments MAGNESIUM (BEAKER) (test code = 1.7 mg/dL 1.6-2.6 627) Consulting Manager ID - BSCBC W/PLT COUNT & AUTO [id number] 04:48:51 Test Item Value Reference Range Interpretation [...] 0.00-1.00 PERCENT (BEAKER) (test code = 2801) [id number] 21:33:18 Test Item Value Reference Range Interpretation Comments PARTIAL THROMBOPLASTIN TIME 51.5 seconds 22.5-36.0 H (BEAKER) (test code = 760) HEMOGLOBIN AND [id number] 18:35:26 Test Item Value Reference Range Interpretation Comments HEMOGLOBIN (BEAKER) (test code = 9.5 GM/DL 11.2-15.7 L 410) HEMATOCRIT (BEAKER) (test code = 30.9 % 34.1-44.9 L 411) Consulting Manager ID - [id number] 14:30:55 Test Item Value Reference Range Interpretation Comments PARTIAL THROMBOPLASTIN TIME 59.3 seconds 22.5-36.0 H (BEAKER) (test code = 760) [id number] 06:21:11 Test Item Value Reference Range Interpretation Comments PARTIAL THROMBOPLASTIN TIME 62.1 seconds 22.5-36.0 H (BEAKER) (test code = 760) PROTHROMBIN TIME/[id number] 03:22:14 Test Item Value Reference Range Interpretation Comments PROTIME (BEAKER) (test code = 14.8 seconds 11.9-14.2 H 759) INR (BEAKER) (test code = 370) 1.23 <=5.90 RECOMMENDED COUMADIN/WARFARIN INR THERAPY RANGESSTANDARD DOSE: 2.0 - 3.0 Includes: PROPHYLAXIS for venous thrombosis, systemic embolization; TREATMENT for venous thrombosis and/or pulmonary embolus.HIGH RISK: Target INR is 2.5-3.5 for patients with mechanical heart valves.[id number] 03:16:55 Test Item Value Reference Range Interpretation Comments MAGNESIUM (BEAKER) (test code = 2.2 mg/dL 1.6-2.6 627) Consulting Manager ID - [id number] 03:16:55 Test Item Value Reference Range Interpretation Comments PHOSPHORUS (BEAKER) (test code = 3.8 mg/dL 2.3-4.7 604) Consulting Manager ID - BSBASIC METABOLIC [id number] 03:16:54 Test Item Value Reference Range Interpretation [...] decreased 60-89 G3a Mildl y to moderately 45- 59 G3b Moderately to s everely 30-44 G4 Severl y decreased 15-29 G5 Kidney failure <15Reported eGF R is based on the CKD-EPI 2020 equation that d oes not use a race coefficientEsti mated GFR is not as accur ate as Creatinine Rose [place] in predicting glom erular filtration rate . Estimated GFR is not appl icable for dialysis patien ts Consulting Manager ID - BSCBC W/PLT COUNT & AUTO [id number] 02:57:48 Test Item Value Reference Range Interpretation [...] PERCENT (BEAKER) (test code = 2801) Prepare [id number] 23:54:00 Test Item Value Reference Range Interpretation Comments CROSSMATCH (test code = 2264) COMPATIBLE Unit ABO (test code = A Pos 9589031) UNIT NUMBER (test code = [id number] 934-0) Status (test code = 0361496) TX_TIMEINCHART Blood Bank Product (test code RED BLOOD CELLS = 2263) PRODUCT CODE (test code = N3813U73 933-2) [facility] [id number] 23:54:00 Test Item Value Reference Range Interpretation Comments CROSSMATCH (test code = 2264) COMPATIBLE Unit ABO (test code = A Pos 2504408) UNIT NUMBER (test code = [id number] 934-0) Status (test code = 3977160) TX_TIMEINCHART Blood Bank Product (test code RED BLOOD CELLS = 2263) PRODUCT CODE (test code = E6589N07 933-2) [facility] [id number] 23:54:00 Test Item Value Reference Range Interpretation Comments CROSSMATCH (test code = 2264) COMPATIBLE Unit ABO (test code = A Pos 7737776) UNIT NUMBER (test code = [id number] 934-0) Status (test code = 6364980) TX_TIMEINCHART Blood Bank Product (test code RED BLOOD CELLS = 2263) PRODUCT CODE (test code = Y8403V15 933-2) [facility] [id number] 23:54:00 Test Item Value Reference Range Interpretation Comments CROSSMATCH (test code = 2264) COMPATIBLE Unit ABO (test code = A Pos 0089943) UNIT NUMBER (test code = [id number] 934-0) Status (test code = 7987562) TX_TIMEINCHART Blood Bank Product (test code RED BLOOD CELLS = 2263) PRODUCT CODE (test code = U9100M40 933-2) [facility] [id number] 23:54:00 Test Item Value Reference Range Interpretation Comments CROSSMATCH (test code = 2264) COMPATIBLE Unit ABO (test code = A Pos 3673428) UNIT NUMBER (test code = [id number] 934-0) Status (test code = 6138159) TX_TIMEINCHART Blood Bank Product (test code RED BLOOD CELLS = 2263) PRODUCT CODE (test code = B2852E68 933-2) [facility] [id number] 23:54:00 Test Item Value Reference Range Interpretation Comments CROSSMATCH (test code = 2264) COMPATIBLE Unit ABO (test code = A Pos 0601505) UNIT NUMBER (test code = [id number] 934-0) Status (test code = 3057859) TX_TIMEINCHART Blood Bank Product (test code RED BLOOD CELLS = 2263) PRODUCT CODE (test code = J4180C76 933-2) [facility] [id number] 21:46:53 Test Item Value Reference Range Interpretation Comments HEMOGLOBIN (BEAKER) (test code = 9.0 GM/DL 11.2-15.7 L 410) HEMATOCRIT (BEAKER) (test code = 30.5 % 34.1-44.9 L 411) Consulting Manager ID - [id number] Echo W/Doppler(CW/PW/Color)2022-05-21 18:02:14Ejection FractionSLE ECHO HEARTLAB [facility] W/Doppler(CW/PW/Color)2022-05-21 18:02:14Ejection FractionSLEH ECHO HEARTLAB [facility] Echo W/Doppler(CW/PW/Color) 2022-05-21 18:02:14Ejection FractionSLEH ECHO HEARTLAB [facility] Echo W/Doppler(CW/PW/Color)2022-05-21 18:02:14Ejection FractionSLEH ECHO HEARTLAB [facility] Echo W/Doppler(CW/PW/Color)2022-05-21 18:02:14Ejection FractionSLEH ECHO [facility]ARTLAB [facility] Echo W/Doppler(CW/PW/Color) 2022-05-21 18:02:14Ejection FractionSLEH ECHO [facility]ARTLAB [facility] 15:07:17 Test Item Value Reference Range Interpretation Comments PARTIAL THROMBOPLASTIN TIME 68.4 seconds 22.5-36.0 H (BEAKER) (test code = 760) PROTHROMBIN TIME/[id number] 15:05:56 Test Item Value Reference Range Interpretation Comments PROTIME (BEAKER) (test code = 15.5 seconds 11.9-14.2 H 759) INR (BEAKER) (test code = 370) 1.31 <=5.90 RECOMMENDED COUMADIN/WARFARIN INR THERAPY RANGESSTANDARD DOSE: 2.0 - 3.0 Includes: PROPHYLAXIS for venous thrombosis, systemic embolization; TREATMENT for venous thrombosis and/or pulmonary embolus.HIGH RISK: Target INR is 2.5-3.5 for patients with mechanical heart valves.TSH/FREE T4 IF [id number] 13:50:00 Test Item Value Reference Range Interpretation Comments THYROID STIMULATING HORMONE 1.746 uIU/mL 0.350-4.940 (BEAKER) (test code = 772) Consulting Manager ID - ARMAND LHEMOGLOBIN AND [id number] 13:00:10 Test Item Value Reference Range Interpretation Comments HEMOGLOBIN (BEAKER) (test code = 9.0 GM/DL 11.2-15.7 L 410) HEMATOCRIT (BEAKER) (test code = 29.3 % 34.1-44.9 L 411) Consulting Manager ID - [id number] 08:55:39 Test Item Value Reference Range Interpretation Comments PARTIAL THROMBOPLASTIN TIME 70.0 seconds 22.5-36.0 H (BEAKER) (test code = 760) [id number] 05:39:20 Test Item Value Reference Range Interpretation Comments PHOSPHORUS (BEAKER) (test code = 3.3 mg/dL 2.3-4.7 604) Consulting Manager ID - MARCOBASIC METABOLIC [id number] 05:39:19 Test Item Value Reference Range Interpretation [...] not appl icable for dialysis patien ts Consulting Manager ID - TAQHYEUBNUUNNM0248-03-57 05:39:19 Test Item Value Reference Range Interpretation Comments MAGNESIUM (BEAKER) (test code = 1.6 mg/dL 1.6-2.6 627) Consulting Manager ID - MARCOCBC W/PLT COUNT & AUTO [id number] 05:18:48 Test Item Value Reference Range Interpretation [...] 0.00-1.00 PERCENT (BEAKER) (test code = 2801) [id number] 01:34:38 Test Item Value Reference Range Interpretation Comments PARTIAL THROMBOPLASTIN TIME 94.3 seconds 22.5-36.0 H (BEAKER) (test code = 760) PROTHROMBIN TIME/[id number] 01:32:54 Test Item Value Reference Range Interpretation Comments PROTIME (BEAKER) (test code = 15.8 seconds 11.9-14.2 H 759) INR (BEAKER) (test code = 370) 1.35 <=5.90 RECOMMENDED COUMADIN/WARFARIN INR THERAPY RANGESSTANDARD DOSE: 2.0 - 3.0 Includes: PROPHYLAXIS for venous thrombosis, systemic embolization; TREATMENT for venous thrombosis and/or pulmonary embolus.HIGH RISK: Target INR is 2.5-3.5 for patients with mechanical heart valves.HEMOGLOBIN AND [id number] 20:48:52 Test Item Value Reference Range Interpretation Comments HEMOGLOBIN (BEAKER) (test code = 8.6 GM/DL 11.2-15.7 L 410) HEMATOCRIT (BEAKER) (test code = 27.9 % 34.1-44.9 L 411) Consulting Manager ID - [id number] 17:34:13 Test Item Value Reference Range Interpretation Comments PARTIAL THROMBOPLASTIN TIME 53.7 seconds 22.5-36.0 H (BEAKER) (test code = 760) PROTHROMBIN TIME/[id number] 17:33:32 Test Item Value Reference Range Interpretation Comments PROTIME (BEAKER) (test code = 16.0 seconds 11.9-14.2 H 759) INR (BEAKER) (test code = 370) 1.37 <=5.90 RECOMMENDED COUMADIN/WARFARIN INR THERAPY RANGESSTANDARD DOSE: 2.0 - 3.0 Includes: PROPHYLAXIS for venous thrombosis, systemic embolization; TREATMENT for venous thrombosis and/or pulmonary embolus.HIGH RISK: Target INR is 2.5-3.5 for patients with mechanical heart valves.[id number] 13:24:26 Test Item Value Reference Range Interpretation Comments PARTIAL THROMBOPLASTIN TIME 70.7 seconds 22.5-36.0 H (BEAKER) (test code = 760) HEMOGLOBIN AND [id number] 13:10:45 Test Item Value Reference Range Interpretation Comments HEMOGLOBIN (BEAKER) (test code = 8.4 GM/DL 11.2-15.7 L 410) HEMATOCRIT (BEAKER) (test code = 27.0 % 34.1-44.9 L 411) Consulting Manager ID - [id number] 08:19:00 Test Item Value Reference Range Interpretation Comments CROSSMATCH (test code = 2264) COMPATIBLE Unit ABO (test code = A Pos 2588805) UNIT NUMBER (test code = [id number] 934-0) Status (test code = 0388921) ISSUED Blood Bank Product (test code RED BLOOD CELLS = 2263) PRODUCT CODE (test code = P4017K54 933-2) [facility] [id number] 08:19:00 Test Item Value Reference Range Interpretation Comments CROSSMATCH (test code = 2264) COMPATIBLE Unit ABO (test code = A Pos 6179097) UNIT NUMBER (test code = [id number] 934-0) Status (test code = 8230741) ISSUED Blood Bank Product (test code RED BLOOD CELLS = 2263) PRODUCT CODE (test code = B5099N90 933-2) [facility] 05:24:24 Test Item Value Reference Range Interpretation Comments PARTIAL THROMBOPLASTIN TIME 91.6 seconds 22.5-36.0 H (BEAKER) (test code = 760) [id number] 04:22:23 Test Item Value Reference Range Interpretation Comments MAGNESIUM (BEAKER) (test code = 1.8 mg/dL 1.6-2.6 627) Consulting Manager ID - ARMAND [id number] 04:22:23 Test Item Value Reference Range Interpretation Comments PHOSPHORUS (BEAKER) (test code = 4.1 mg/dL 2.3-4.7 604) Consulting Manager ID - ARMAND LBASIC METABOLIC [id number] 04:22:22 Test Item Value Reference Range Interpretation [...] not appl icable for dialysis patien ts Consulting Manager ID - PIAYA LPROTHROMBIN TIME/[id number] 03:58:55 Test Item Value Reference Range Interpretation [...] mechanical heart valves.CBC W/PLT COUNT & AUTO [id number] 03:54:23 Test Item Value Reference Range Interpretation [...] 0.00-1.00 PERCENT (BEAKER) (test code = 2801) [id number] 23:23:33 Test Item Value Reference Range Interpretation Comments PARTIAL THROMBOPLASTIN TIME 63.2 seconds 22.5-36.0 H (BEAKER) (test code = 760) HEMOGLOBIN AND [id number] 21:26:00 Test Item Value Reference Range Interpretation Comments HEMOGLOBIN (BEAKER) (test code = 7.6 GM/DL 11.2-15.7 L 410) HEMATOCRIT (BEAKER) (test code = 24.8 % 34.1-44.9 L 411) Consulting Manager ID - [id number] 17:30:54 Test Item Value Reference Range Interpretation Comments PARTIAL THROMBOPLASTIN TIME 37.0 seconds 22.5-36.0 H (BEAKER) (test code = 760) PROTHROMBIN TIME/[id number] 17:29:53 Test Item Value Reference Range Interpretation Comments PROTIME (BEAKER) (test code = 18.3 seconds 11.9-14.2 H 759) INR (BEAKER) (test code = 370) 1.62 <=5.90 RECOMMENDED COUMADIN/WARFARIN INR THERAPY RANGESSTANDARD DOSE: 2.0 - 3.0 Includes: PROPHYLAXIS for venous thrombosis, systemic embolization; TREATMENT for venous thrombosis and/or pulmonary embolus.HIGH RISK: Target INR is 2.5-3.5 for patients with mechanical heart valves.PROTHROMBIN TIME/[id number] 12:31:00 Test Item Value Reference Range Interpretation Comments PROTIME (BEAKER) (test code = 18.7 seconds 11.9-14.2 H 759) INR (BEAKER) (test code = 370) 1.61 <=5.90 RECOMMENDED COUMADIN/WARFARIN INR THERAPY RANGESSTANDARD DOSE: 2.0 - 3.0 Includes: PROPHYLAXIS for venous thrombosis, systemic embolization; TREATMENT for venous thrombosis and/or pulmonary embolus.HIGH RISK: Target INR is 2.5-3.5 for patients with mechanical heart valves.HEMOGLOBIN AND [id number] 12:24:20 Test Item Value Reference Range Interpretation Comments HEMOGLOBIN (BEAKER) (test code = 7.4 GM/DL 11.2-15.7 L 410) HEMATOCRIT (BEAKER) (test code = 23.7 % 34.1-44.9 L 411) Consulting Manager ID - 6000POC-Glucose [id number] 05:40:23 Test Item Value Reference Range Interpretation Comments POC-Glucose Meter (test 78 mg/dL 70-110 : TE STED AT [facility] code = 1538) [address] [facility], 770 30: Consulting Manager/Techni valarie ID = [id number] for Yumi, James Lab Interpretation (test Normal code = 58004-2) [facility] [id number] 05:40:23 Test Item Value Reference Range Interpretation Comments POC-Glucose Meter (test 78 mg/dL 70-110 : TE STED AT [facility] code = 1538) [address] [place] [address], 770 30: Consulting Manager/Techni valarie ID = [id number] for Yumi, James Lab Interpretation (test Normal code = 04291-7) [facility]-Glucose [id number] 05:40:23 Test Item Value Reference Range Interpretation Comments POC-Glucose Meter (test 78 mg/dL 70-110 : TE STED AT [facility] code = 1538) [address] [place] [address], 770 30: Consulting Manager/Techni valarie ID = [id number] for Yumi, James Lab Interpretation (test Normal code = 80800-2) [facility]-Glucose [id number] 05:40:23 Test Item Value Reference Range Interpretation Comments POC-Glucose Meter (test 78 mg/dL 70-110 : TE STED AT [facility] code = 1538) [address] [place] [address], 770 30: Consulting Manager/Techni valarie ID = [id number] for Yumi, James Lab Interpretation (test Normal code = 93471-5) [facility]-Glucose [id number] 05:40:23 Test Item Value Reference Range Interpretation Comments POC-Glucose Meter (test 78 mg/dL 70-110 : TE STED AT [facility] code = 1538) [address] [place] [address], 770 30: Consulting Manager/Techni valarie ID = [id number] for Yumi, James Lab Interpretation (test Normal code = 78060-2) [facility]-Glucose [id number] 05:40:23 Test Item Value Reference Range Interpretation Comments POC-Glucose Meter (test 78 mg/dL 70-110 : TE STED AT [facility] code = 1538) [address] [place] [address], 770 30: Consulting Manager/Techni valarie ID = [id number] for Yumi, James Lab Interpretation (test Normal code = 69997-9) [facility]-Glucose [id number] 05:40:23 Test Item Value Reference Range Interpretation Comments POC-Glucose Meter (test 78 mg/dL 70-110 : TE STED AT [facility] code = 1538) [address] [facility], 770 30: Consulting Manager/Techni valarie ID = [id number] for James Eason Lab Interpretation (test Normal code = 51156-2) [facility]-Glucose [id number] 05:40:23 Test Item Value Reference Range Interpretation Comments POC-Glucose Meter (test 78 mg/dL 70-110 : TE STED AT [facility] code = 1538) [address] [facility], 770 30: Consulting Manager/Techni valarie ID = [id number] for James Eason Lab Interpretation (test Normal code = 84863-0) [facility]-GLUCOSE [id number] 05:40:23 Test Item Value Reference Range Interpretation Comments POC-GLUCOSE METER 78 mg/dL 70-110 : TESTED A T [facility] 6720 (BEAKER) (test [facility] = [facility], 1538) [address]: Consulting Manager/Techni valarie ID = [id number] for James Cisneros [id number] 04:23:09 Test Item Value Reference Range Interpretation Comments MAGNESIUM (BEAKER) (test code = 2.1 mg/dL 1.6-2.6 627) Consulting Manager ID - ARMAND [id number] 04:23:09 Test Item Value Reference Range Interpretation Comments PHOSPHORUS (BEAKER) (test code = 1.9 mg/dL 2.3-4.7 L 604) Consulting Manager ID - PIAYA LBASIC METABOLIC [id number] 04:23:08 Test Item Value Reference Range Interpretation [...] not appl icable for dialysis patien ts Consulting Manager ID - PIAYA LPROTHROMBIN TIME/[id number] 04:07:24 Test Item Value Reference Range Interpretation [...] mechanical heart valves.CBC W/PLT COUNT & AUTO [id number] 04:00:27 Test Item Value Reference Range Interpretation [...] PERCENT (BEAKER) (test code = 2801) POCT-GLUCOSE [id number] 23:14:02 Test Item Value Reference Range Interpretation Comments POC-GLUCOSE METER 86 mg/dL 70-110 : TESTED Davion T [facility] 6720 (BEAKER) (test code = [place], 1538) [address]: Consulting Manager/Techni valarie ID = [id number] for Vill anueva, Robles BUN AND CREATININE [id number] 21:02:50 Test Item Value Reference Range Interpretation Comments BLOOD UREA 10 mg/dL 7-21 NITROGEN (BEAKER) (test code = 354) CREATININE 0.79 mg/dL 0.57-1.25 (BEAKER) (test code = 358) BUN/CREAT RATIO 13 For a normal individual on (BEAKER) (test a normal diet , the code = reference inter [place] for the 9729021423) mass ratio rang es between 12:1 and [...] not appl icable for dialysis patien ts Consulting Manager ID - [id number] 21:02:49 Test Item Value Reference Range Interpretation Comments MAGNESIUM (BEAKER) (test code = 2.1 mg/dL 1.6-2.6 627) Consulting Manager ID - [id number] 21:02:49 Test Item Value Reference Range Interpretation Comments POTASSIUM (BEAKER) (test code = 3.7 meq/L 3.5-5.1 379) Consulting Manager ID - BSHEMOGLOBIN AND [id number] 20:18:40 Test Item Value Reference Range Interpretation Comments HEMOGLOBIN (BEAKER) (test code = 7.5 GM/DL 11.2-15.7 L 410) HEMATOCRIT (BEAKER) (test code = 23.4 % 34.1-44.9 L 411) Consulting Manager ID - [id number], CTA [id number] 19:41:00Unlisted Reason for Exam - Click Yes and Enter Reason Below->YesUnlisted Reason for Exam->Looking for mesenteric ischemia. [facility] : 1955 Sex: [...] Goff MDReport Verified Date/Time: 05/18/2022 19:41:16 POCT-GLUCOSE [id number] 19:08:28 Test Item Value Reference Range Interpretation Comments POC-GLUCOSE METER 91 mg/dL 70-110 : TESTED A T [facility] 6720 ([facility]) (test code = JOSELITO Joan [facility], 1538) [address]: Consulting Manager/Techni valarie ID = [id number] for Scarlet Maravilla HIGH SENSITIVITY TROPONIN [id number] 16:22:26 Test Item Value Reference Range Interpretation Comments HIGH SENSITIVITY TROPONIN I (test 9 pg/ml <=17 code = 6611408) Consulting Manager ID - BSThe AQUATIC FACILITY MANAGER STAT High Sensitivity Troponin-I results should be used in conjunctionwith other diagnostic information such as ECG, clinical observations and information, and patient symptoms to aid in the diagnosis of [place].Urinalysis w/Microscopic + Reflex to [id number] 16:12:56 Test Item Value Reference Range Interpretation Comments Color, UA (test code Yellow = 5778-6) Clarity, UA (test Hazy code = 5767-9) Specific Sherman, UA 1.045 1.001-1.035 H (test code = 5811-5) pH, UA (test code = 6.5 5.0-8.0 5803-2) Protein, UA (test 20 mg/dL Negative A code = 20903-4) Glucose, UA (test Negative Negative code = 365) Ketones, UA (test Negative Negative code = 2514-8) Bilirubin, UA (test Negative Negative code = 32993-4) Blood, UA (test code Moderate Negative A = 69027-1) Nitrite, UA (test Negative Negative code = 5802-4) Leukocytes, UA (test Large Negative A code = 5799-2) Urobilinogen, UA 0.2 0.2-1.0 (test code = 91365-1) RBC, UA (test code = 34 See_Comment [Autom ated 91889-0) message] The system which generated this result [...] . Bacteria, UA (test Few code = 34163-6) Squam Epithel, UA <1 See_Comment [Automate d (test code = 70121-6) messag e] The system which generated this result transmit bandar reference range : /HPF. The reference range was not used to interpret this result as normal/abnormal . Specimen Source (test code = 2795) ROBERT (test code = ROBERT) Consulting Manager ID - [auto]Consulting Manager ID - tech Lab Interpretation Abnormal (test code = 55496-3) [facility] Reflex to Culture 2022-05-18 16:12:56 Test Item Value Reference Range Interpretation Comments Color, UA (test code Yellow = 5778-6) Clarity, UA (test Hazy code = 5767-9) Specific Sherman, UA 1.045 1.001-1.035 H (test code = 5811-5) pH, UA (test code = 6.5 5.0-8.0 5803-2) Protein, UA (test 20 mg/dL Negative A code = 25857-6) Glucose, UA (test Negative Negative code = 365) Ketones, UA (test Negative Negative code = 2514-8) Bilirubin, UA (test Negative Negative code = 70809-0) Blood, UA (test code Moderate Negative A = 12495-3) Nitrite, UA (test Negative Negative code = 5802-4) Leukocytes, UA (test Large Negative A code = 5799-2) Urobilinogen, UA 0.2 0.2-1.0 (test code = 21756-5) RBC, UA (test code = 34 See_Comment [Autom ated 92482-8) message] The system which generated this result [...] . Bacteria, UA (test Few code = 17592-9) Squam Epithel, UA <1 See_Comment [Automate d (test code = 30212-0) messag e] The system which generated this result transmit bandar reference range : /HPF. The reference range was not used to interpret this result as normal/abnormal . Specimen Source (test code = 2795) RBOERT (test code = ROBERT) Consulting Manager ID - [auto]Consulting Manager ID - tech Lab Interpretation Abnormal (test code = 56110-3) [facility] + Reflex to Culture 2022-05-18 16:12:56 Test Item Value Reference Range Interpretation Comments Color, UA (test code Yellow = 5778-6) Clarity, UA (test Hazy code = 5767-9) Specific Sherman, UA 1.045 1.001-1.035 H (test code = 5811-5) pH, UA (test code = 6.5 5.0-8.0 5803-2) Protein, UA (test 20 mg/dL Negative A code = 18535-7) Glucose, UA (test Negative Negative code = 365) Ketones, UA (test Negative Negative code = 2514-8) Bilirubin, UA (test Negative Negative code = 15688-0) Blood, UA (test code Moderate Negative A = 79413-6) Nitrite, UA (test Negative Negative code = 5802-4) Leukocytes, UA (test Large Negative A code = 5799-2) Urobilinogen, UA 0.2 0.2-1.0 (test code = 85873-3) RBC, UA (test code = 34 See_Comment [Autom ated 44013-1) message] The system which generated this result [...] . Bacteria, UA (test Few code = 80205-6) Squam Epithel, UA <1 See_Comment [Automate d (test code = 98513-9) messag e] The system which generated this result transmit bandar reference range : /HPF. The reference range was not used to interpret this result as normal/abnormal . Specimen Source (test code = 2795) ROBERT (test code = ROBERT) Consulting Manager ID - [auto]Consulting Manager ID - tech Lab Interpretation Abnormal (test code = 10122-0) [facility] + Reflex to Culture 2022-05-18 16:12:56 Test Item Value Reference Range Interpretation Comments Color, UA (test code Yellow = 5778-6) Clarity, UA (test Hazy code = 5767-9) Specific Sherman, UA 1.045 1.001-1.035 H (test code = 5811-5) pH, UA (test code = 6.5 5.0-8.0 5803-2) Protein, UA (test 20 mg/dL Negative A code = 45453-1) Glucose, UA (test Negative Negative code = 365) Ketones, UA (test Negative Negative code = 2514-8) Bilirubin, UA (test Negative Negative code = 45873-6) Blood, UA (test code Moderate Negative A = 05180-5) Nitrite, UA (test Negative Negative code = 5802-4) Leukocytes, UA (test Large Negative A code = 5799-2) Urobilinogen, UA 0.2 0.2-1.0 (test code = 52749-2) RBC, UA (test code = 34 See_Comment [Autom ated 49890-9) message] The system which generated this result [...] . Bacteria, UA (test Few code = 79497-8) Squam Epithel, UA <1 See_Comment [Automate d (test code = 87523-9) messag e] The system which generated this result transmit bandar reference range : /HPF. The reference range was not used to interpret this result as normal/abnormal . Specimen Source (test code = 2795) ROBERT (test code = ROBERT) Consulting Manager ID - [auto]Consulting Manager ID - tech Lab Interpretation Abnormal (test code = 87381-1) [facility]/Micro[facility] + Reflex to Culture 2022-05-18 16:12:56 Test Item Value Reference Range Interpretation Comments Color, UA (test code Yellow = 5778-6) Clarity, UA (test Hazy code = 5767-9) Specific Sherman, UA 1.045 1.001-1.035 H (test code = 5811-5) pH, UA (test code = 6.5 5.0-8.0 5803-2) Protein, UA (test 20 mg/dL Negative A code = 85616-0) Glucose, UA (test Negative Negative code = 365) Ketones, UA (test Negative Negative code = 2514-8) Bilirubin, UA (test Negative Negative code = 92130-4) Blood, UA (test code Moderate Negative A = 72771-6) Nitrite, UA (test Negative Negative code = 5802-4) Leukocytes, UA (test Large Negative A code = 5799-2) Urobilinogen, UA 0.2 0.2-1.0 (test code = 44876-4) RBC, UA (test code = 34 See_Comment [Autom ated 99927-7) message] The system which generated this result [...] . Bacteria, UA (test Few code = 42764-1) Squam Epithel, UA <1 See_Comment [Automate d (test code = 25283-6) messag e] The system which generated this result transmit bandar reference range : /HPF. The reference range was not used to interpret this result as normal/abnormal . Specimen Source (test code = 2795) ROBERT (test code = ROBERT) Consulting Manager ID - [auto]Consulting Manager ID - tech Lab Interpretation Abnormal (test code = 68038-0) [facility] + Reflex to Culture 2022-05-18 16:12:56 Test Item Value Reference Range Interpretation Comments Color, UA (test code Yellow = 5778-6) Clarity, UA (test Hazy code = 5767-9) Specific Sherman, UA 1.045 1.001-1.035 H (test code = 5811-5) pH, UA (test code = 6.5 5.0-8.0 5803-2) Protein, UA (test 20 mg/dL Negative A code = 05843-9) Glucose, UA (test Negative Negative code = 365) Ketones, UA (test Negative Negative code = 2514-8) Bilirubin, UA (test Negative Negative code = 18714-0) Blood, UA (test code Moderate Negative A = 29542-4) Nitrite, UA (test Negative Negative code = 5802-4) Leukocytes, UA (test Large Negative A code = 5799-2) Urobilinogen, UA 0.2 0.2-1.0 (test code = 92850-2) RBC, UA (test code = 34 See_Comment [Autom ated 36824-2) message] The system which generated this result [...] . Bacteria, UA (test Few code = 14080-4) Squam Epithel, UA See_Comment [Automate d (test code = 33417-7) messag e] The system which generated this result transmit bandar reference range : /HPF. The reference range was not used to interpret this result as normal/abnormal . Specimen Source (test code = 2795) ROBERT (test code = ROBERT) Consulting Manager ID - [auto]Consulting Manager ID - tech Lab Interpretation Abnormal (test code = 17961-7) [facility] + Reflex to Culture 2022-05-18 16:12:56 Test Item Value Reference Range Interpretation Comments Color, UA (test code Yellow = 5778-6) Clarity, UA (test Hazy code = 5767-9) Specific Sherman, UA 1.045 1.001-1.035 H (test code = 5811-5) pH, UA (test code = 6.5 5.0-8.0 5803-2) Protein, UA (test 20 mg/dL Negative A code = 91948-0) Glucose, UA (test Negative Negative code = 365) Ketones, UA (test Negative Negative code = 2514-8) Bilirubin, UA (test Negative Negative code = 46189-9) Blood, UA (test code Moderate Negative A = 07211-5) Nitrite, UA (test Negative Negative code = 5802-4) Leukocytes, UA (test Large Negative A code = 5799-2) Urobilinogen, UA 0.2 0.2-1.0 (test code = 19629-9) RBC, UA (test code = 34 See_Comment [Autom ated 68298-2) message] The system which generated this result [...] . Bacteria, UA (test Few code = 92722-4) Squam Epithel, UA See_Comment [Automate d (test code = 32684-4) messag e] The system which generated this result transmit bandar reference range : /HPF. The reference range was not used to interpret this result as normal/abnormal . Specimen Source (test code = 2795) ROBERT (test code = ROBERT) Consulting Manager ID - [auto]Consulting Manager ID - tech Lab Interpretation Abnormal (test code = 51603-4) [facility]opic + Reflex to Culture 2022-05-18 16:12:56 Test Item Value Reference Range Interpretation Comments Color, UA (test code Yellow = 5778-6) Clarity, UA (test Hazy code = 5767-9) Specific Sherman, UA 1.045 1.001-1.035 H (test code = 5811-5) pH, UA (test code = 6.5 5.0-8.0 5803-2) Protein, UA (test 20 mg/dL Negative A code = 77307-1) Glucose, UA (test Negative Negative code = 365) Ketones, UA (test Negative Negative code = 2514-8) Bilirubin, UA (test Negative Negative code = 33247-7) Blood, UA (test code Moderate Negative A = 43608-3) Nitrite, UA (test Negative Negative code = 5802-4) Leukocytes, UA (test Large Negative A code = 5799-2) Urobilinogen, UA 0.2 0.2-1.0 (test code = 32762-7) RBC, UA (test code = 34 See_Comment [Autom ated 30063-8) message] The system which generated this result [...] . Bacteria, UA (test Few code = 62873-8) Squam Epithel, UA See_Comment [Automate d (test code = 09745-2) messag e] The system which generated this result transmit bandar reference range : /HPF. The reference range was not used to interpret this result as normal/abnormal . Specimen Source (test code = 2795) ROBERT (test code = ROBERT) Consulting Manager ID - [auto]Consulting Manager ID - tech Lab Interpretation Abnormal (test code = 03137-2) [facility]FLEX URINE [id number] 16:12:56 Test Item Value Reference Range Interpretation [...] = 516) SOURCE(BEAKER) (test code = 2795) Consulting Manager ID - [auto]Consulting Manager ID - techPROTHROMBIN TIME/[id number] 16:02:01 Test Item Value Reference Range Interpretation Comments PROTIME (BEAKER) (test code = 25.8 seconds 11.9-14.2 H 759) INR (BEAKER) (test code = 370) 2.54 <=5.90 RECOMMENDED COUMADIN/WARFARIN INR THERAPY RANGESSTANDARD DOSE: 2.0 - 3.0 Includes: PROPHYLAXIS for venous thrombosis, systemic embolization; TREATMENT for venous thrombosis and/or pulmonary embolus.HIGH RISK: Target INR is 2.5-3.5 for patients with mechanical heart valves.CALCIUM, [id number] 13:31:38 Test Item Value Reference Range Interpretation [...] 0-0 (BEAKER) (test code = 413) POCT-GLUCOSE [id number] 13:07:25 Test Item Value Reference Range Interpretation Comments POC-GLUCOSE METER 81 mg/dL 70-110 : TESTED A T [facility] 6720 (BEAKER) (test code = JOSELITO Joan [facility], 1538) [address]: Consulting Manager/Techni valarie ID = [id number] for Scarlet Maravilla B-TYPE NATRIURETIC FACTOR (BNP)2022-05-18 11:38:06 Test Item Value Reference Range Interpretation Comments B-TYPE NATRIURETIC PEPTIDE (BEAKER) 97 pg/mL 0-100 (test code = 700) Consulting Manager ID - FANTASMA [id number] 11:34:39 Test Item Value Reference Range Interpretation Comments FIBRINOGEN LEVEL (BEAKER) (test 440 mg/dl 225-434 H code = 658) [id number] 11:32:28 Test Item Value Reference Range Interpretation Comments LIPASE (BEAKER) (test code = 749) 13 U/L 8-78 Consulting Manager ID - FANTASMA BCOMPREHENSIVE METABOLIC [id number] 11:32:27 Test Item Value Reference Range Interpretation [...] (test code = 347) EGFR (BEAKER) 76 Interpretati on of eGFR (test code = 1092) mL/min/1.73 [...] not appl icable for dialysis patien ts Consulting Manager ID - FANTASMA [id number] 11:32:27 Test Item Value Reference Range Interpretation Comments MAGNESIUM (BEAKER) (test code = 1.7 mg/dL 1.6-2.6 627) Consulting Manager ID - FANTASMA [id number] 11:32:27 Test Item Value Reference Range Interpretation Comments PHOSPHORUS (BEAKER) (test code = 2.9 mg/dL 2.3-4.7 604) Consulting Manager ID - FANTASMA BPT/[id number] 11:21:21 Test Item Value Reference Range Interpretation [...] for patients with mechanical heart valves.LACTIC ACID, [id number] 11:20:59 Test Item Value Reference Range Interpretation Comments LACTATE BLOOD VENOUS (2) (BEAKER) 1.40 mmol/L 0.50-2.20 (test code = 2872) Consulting Manager ID - FANTASMA Butler"
[2022-09-08 21:00] LABS: Protime INR 2.55
[2022-09-08] MEDS ORDERED: FENTANYL CITR 100 MCG/2 ML ONE (21:12)
[2022-09-08] MEDS ORDERED: LORAZEPAM 0.5 MG TABLET ONE (21:12)
[2022-09-08] MEDS ORDERED: ONDANSETRON 4 MG (ODT) TAB ONE (21:13)
[2022-09-08 21:20] LABS: Absolute Lymphocytes (CBC) 1.3 K/uL (0.7-4.9); Hematocrit 30.2 % (36.0-45.0); MCV 89.4 fL (80-100); MPV 8.9 fL (7.6-11.3); RBC Red Blood Cell Count 3.38 M/uL (3.86-4.86)
[2022-09-08 21:26] LABS: Albumin 3.7 g/dL (3.4-5.0); Bilirubin Direct 0.2 mg/dL (0-0.2); Bilirubin Indirect, Calculated 0.2 mg/dL (0.2-0.8); Bilirubin Total 0.4 mg/dL (0.2-1.0); Magnesium 1.9 mg/dL (1.6-2.4); Potassium 2.7 mEq/L (3.5-5.1); Protein, Total 7.3 g/dL (6.4-8.2); Troponin High Sensitivity 8.8 pg/mL (<58.9)
--- NOTE | 2022-09-08 21:37 | RAD REPORT ---
EXAM DESCRIPTION: RADChest Single View09/08/2022 9:18 pm CLINICAL HISTORY: CHEST PAIN COMPARISON: Chest Single View dated 08/24/2022; Chest Single View dated 08/21/2022; Chest Single View d ated 07/31/2022; Chest Single View dated 03/25/2022 TECHNIQUE: Portable AP view of the chest. FINDINGS: The lungs are clear. No pneumothorax or effusion. Stable tortuosity of the thoracic aorta with dense atherosclerotic calcifications at the arch. The cardiomediastinal contours are unchanged. IMPRESSION: No acute cardiopulmonary process.
[2022-09-09 00:24] LABS: Blood Morphology Comment NOT SEEN (NOT SEEN); Platelet Estimate ADEQ; White Blood Cell Scan OK (OK)
--- NOTE | 2022-09-09 00:27 | EDPHYS ---
Physician Documentation [facility] Name: Michelle Saavedra Age: 67 yrs Sex: Female : 1955 Arrival Date: 09/08/2022 Time: 20:10 Bed 14 Private MD: ED Physician Juan Yoder HPI: 09/08 20:39 This 67 yrs old Female presents to ER via Unassigned with complaints of sp4 Shortness Of Breath, Chest Pain, Back Pain, Abdominal Pain. 20:51 This patient presents with acute onset of chest pain and abdominal pain starting at sp4 10:30 AM today. Patient on presentation is also arrhythmia on the monitor, atrial fibrillation. Patient complains of moderate midsternal pains. Denied any other symptoms. Denied nausea vomiting diarrhea. Past medical history includes aortic valvuloplasty status post mechanical aortic valve replacement on warfarin, chronic diastolic heart failure, atrial fibrillation, hypertension, hyperlipidemia, GERD. Patient is also history of 4 cm descending aortic aneurysm that was not operable based on last admission record. Patient's last admission was on 08/21/2022. Patient's medications include alendronate. Atorvastatin. Furosemide, gabapentin, metoprolol, pantoprazole, zolpidem, aspirin, dofetilide, ezetimibe, hydrocodone, Coumadin, patient follows up with local finance associate Dr. Emma Doty. Primary MD Dr. Roa . Historical: - Allergies: 20:40 Morphine; nj1 - PMHx: 20:40 Atrial fibrillation; Hypercholesterolemia; Hypertensive disorder; mechanical valve; nj1 - Immunization history:: Client reports having NOT received the Covid vaccine. - Social history:: Smoking status: Patient denies any tobacco usage or history of. - Family history:: not pertinent. ROS: 20:51 Constitutional: Negative for fever, chills, and weight loss, Eyes: Negative for injury, sp4 pain, redness, and discharge, ENT: Negative for injury, pain, and discharge, Neck: Negative for injury, pain, and swelling, Cardiovascular: Negative for , palpitations, and edema, positive for midsternal chest pain. Respiratory: Negative for shortness of breath, cough, wheezing, and pleuritic chest pain, Abdomen/GI: Negative for nausea, vomiting, diarrhea, and constipation, positive for lower abdominal pain. Back: Negative for injury and pain, : Negative for injury, bleeding, discharge, and swelling, MS/Extremity: Negative for injury and deformity, Skin: Negative for injury, rash, and discoloration, Neuro: Negative for headache, weakness, numbness, tingling, and seizure, Psych: Negative for depression, anxiety, Allergy/Immunology: Negative for hives, rash, and allergies Endocrine: Negative for neck swelling, polydipsia, polyuria, polyphagia, and weight changes Hematologic/Lymphatic: Negative for swollen nodes, abnormal bleeding, and unusual bruising Exam: 20:51 Constitutional: This is a well developed, well nourished patient who is awake, alert, sp4 and in no acute distress. Head/Face: Normocephalic, atraumatic. Eyes: Pupils equal round and reactive to light, extra-ocular motions intact. Lids and lashes normal. Conjunctiva and sclera are not injected. Cornea within normal limits. Periorbital areas with no swelling, redness, or edema. ENT: Nares patent. No nasal discharge, no septal abnormalities noted. Tympanic membranes are normal and external auditory canals are clear. Oropharynx with no redness, swelling, or masses, exudates, or evidence of obstruction, uvula midline. Mucous membranes moist. Neck: Trachea midline, no thyromegaly or masses palpated, and no cervical lymphadenopathy. Supple, full range of motion without nuchal rigidity, or vertebral point tenderness. No Meningismus. Chest/axilla: Normal chest wall appearance and motion. Nontender with no deformity. No lesions are appreciated. Cardiovascular: No gallops, murmurs, or rubs. Normal PMI, no JVD. No pulse deficits. Bradycardia by exam irregularly irregular rhythm Respiratory: Lungs have equal breath sounds bilaterally, clear to auscultation and percussion. No rales, rhonchi or wheezes noted. No increased work of breathing, no retractions or nasal flaring. Abdomen/GI: Soft, non-tender, with normal bowel sounds. No distension or tympany. No guarding or rebound. No evidence of tenderness throughout. Back: No spinal tenderness. No costovertebral tenderness. Skin: Warm, dry with normal turgor. Normal color with no rashes, no lesions, and no evidence of cellulitis. MS/ Extremity: Pulses equal, no cyanosis. Neurovascular intact. Full, normal range of motion. Neuro: Awake and alert, GCS 15, oriented to person, place, time, and situation. Cranial nerves II-XII grossly intact. Motor strength 5/5 in all extremities. Sensory grossly intact. Psych: Awake, alert, with orientation to person, place and time. Behavior, mood, and affect are within normal limits 20:51 ECG was reviewed by the Attending Physician. EKG time 2023, there is atrial sp4 fibrillation at the rate of 64. Irregularly irregular rate. No ST elevation or depression. Vital Signs: 20:20 BP 134 / 51; Pulse 64; Resp 14; Temp 98.5; Pulse Ox 99% on R/A; Weight 45.81 kg; Height nj1 5 ft. 3 in. ; Pain 9/10; 22:07 BP 133 / 45; Pulse 51; Resp 15; Pulse Ox 100% on 2 lpm NC; jb4 23:30 BP 137 / 48; Pulse 54; Resp 18; Pulse Ox 100% on 2 lpm NC; jb4 20:20 Body Mass Index 17.89 (45.81 kg, 160.02 cm) nj1 20:20 Pain Scale: Adult nj1 MDM: 20:40 Patient medically screened. 09/09 00:22 Data reviewed: vital signs, nurses notes, lab test result(s), EKG, radiologic studies. sp4 00:22 Differential diagnosis: Anxiety Reaction asthma, Bronchitis CHF exacerbation, Chronic sp4 Obstructive Pulmonary Disease Myocardial Infarction pneumonia, Pneumothorax Psychogenic. ED course: presents with chest pain pressure, patient states she is feeling unwell. Patient has irregular bradycardia consistent with atrial fibrillation. Patient warrants monitoring in hospital on telemetry and troponin trends. . 00:27 ED course: There is also significant hypokalemia with potassium 2.7, plan to replace on sp4 the inpatient basis. 09/08 20:40 Order name: Basic Metabolic Panel; Complete Time: 00: sp4 09/08 20:40 Order name: CBC with Diff; Complete Time: 00: sp4 09/08 20:40 Order name: LFT's; Complete Time: 00: sp4 09/08 20:40 Order name: Magnesium; Complete Time: 00: sp4 09/08 20:40 Order name: NT PRO-BNP; Complete Time: 00: sp4 09/08 20:40 Order name: PT-INR; Complete Time: 23:52 [facility] 09/08 20:40 Order name: Troponin HS; Complete Time: 00:21 [facility] 09/09 00:22 Order name: CBC Smear Scan; Complete Time: 00:26 [facility] 09/08 20:40 Order name: XRAY Chest (1 view); Complete Time: 00:21 [facility] 09/08 20:40 Order name: EKG; Complete Time: 20:41 [facility] 09/08 20:40 Order name: Cardiac monitoring; Complete Time: 20:57 [facility] 09/08 20:40 Order name: EKG - Nurse/Tech; Complete Time: 20:57 [facility] 09/08 20:40 Order name: IV Saline Lock; Complete Time: 20:57 [facility] 09/08 20:40 Order name: Labs collected and sent; Complete Time: 20:57 [facility] 09/08 20:40 Order name: O2 Per Protocol; Complete Time: 20:57 [facility] 09/08 20:40 Order name: O2 Sat Monitoring; Complete Time: 20:57 [facility] EC/27 20:51 Rate is 64 beats/min. Rhythm is irregularly irregular, A fib. No ST changes noted. sp4 Clinical impression: No evidence of ischemia. Interpreted by me. Administered Medications: 21:12 Drug: fentaNYL (PF) IVP 100 mcg Route: IVP; Site: right forearm; 09/09 00:33 Follow up: Response: No adverse reaction rv 09/08 21:12 Drug: LORazepam PO 0.5 mg Route: PO; 09/09 00:32 Follow up: Response: No adverse reaction rv 09/08 21:12 Drug: Ondansetron PO 4 mg Route: PO; 09/09 00:32 Follow up: Response: No adverse reaction rv 00:46 Drug: Potassium Chloride IV 20 mEq Route: IV; Rate: calculated rate; Site: right rv forearm; 01:08 Follow up: IV Status: Infusion continued upon admission rv 00:46 Drug: Potassium PO Effervescent Tablet 50 mEq Route: PO; rv 01:08 Follow up: Response: No adverse reaction rv Disposition Summary: 09/09/22 00:26 Hospitalization Ordered Hospitalization Status: Observation sp4 Provider: Cruz Sabillon Location: Telemetry/MedSurg (observation) sp4 Condition: Stable sp4 Problem: new sp4 Symptoms: have improved sp4 Bed/Room Type: Standard sp4 Room Assignment: 211(09/09/22 00:58) cg Diagnosis - Angina pectoris, unspecified sp4 - Generalized weakness, feeling unwell, exacerbation of pain sp4 - Hypokalemia sp4 Forms: - Medication Reconciliation Form sp4 - SBAR form sp4 Signatures: Dispatcher [employer] EDFarshad Ramirez, MINE MOTOR OPERATOR-C MINE MOTOR OPERATOR-Cla1 Merary Dinero, RN RN Ferny Chavis RN RN jb4 Fahad Haley RN RN rv Potepalov, Sergey, MD MD sp4 Stephy Patel RN RN nj1 Corrections: (The following items were deleted from the chart) 00:58 00:26 sp4 cg
--- NOTE | 2022-09-09 00:27 | ER ---
Nurse's Notes [facility] Name: Michelle Saavedra Age: 67 yrs Sex: Female : 1955 Arrival Date: 09/08/2022 Time: 20:10 Bed 14 Private MD: Diagnosis: Angina pectoris, unspecified;Generalized weakness, feeling unwell, exacerbation of pain;Hypokalemia Presentation: 09/08 20:20 Chief complaint: Patient states: Shortness of breath along with abdominal/low back pain nj1 since this morning, started having chest pain at around 9:30-10:00. Coronavirus screen: Vaccine status: Patient reports being unvaccinated. 20:20 Method Of Arrival: Ambulatory [facility] 20:20 Ebola Screen: Patient denies travel to an Ebola-affected area in the 21 days before [facility] illness onset. Initial Sepsis Screen: Does the patient meet any 2 criteria? No. Patient's initial sepsis screen is negative. Does the patient have a suspected source of infection? No. Patient's initial sepsis screen is negative. Risk Assessment: Do you want to hurt yourself or someone else? Patient reports no desire to harm self or others. Onset of symptoms was September 08, 2022. 20:20 Acuity: JAKUB 3 wv1 Triage Assessment: 09/09 01:08 Respiratory: Reports shortness of breath at rest Onset: The symptoms/episode rv began/occurred gradually, the patient has mild shortness of breath. Historical: - Allergies: 09/08 20:40 Morphine; nj1 - PMHx: 20:40 Atrial fibrillation; Hypercholesterolemia; Hypertensive disorder; mechanical valve; nj1 - Immunization history:: Client reports having NOT received the Covid vaccine. - Social history:: Smoking status: Patient denies any tobacco usage or history of. - Family history:: not pertinent. Screenin/28 01:08 [facility] ED Fall Risk Assessment (Adult) History of falling in the last 3 months, rv including since admission No falls in past 3 months (0 pts). Abuse screen: Denies threats or abuse. Nutritional screening: No deficits noted. Tuberculosis screening: No symptoms or risk factors identified. Assessment: 09/08 20:30 General: Appears in no apparent distress. uncomfortable, Behavior is calm, cooperative, jb4 appropriate for age. Pain: Complains of pain in chest and abdomen Pain radiates to back Pain currently is 10 out of 10 on a pain scale. Neuro: Level of Consciousness is awake, alert, obeys commands, Oriented to person, place, time, situation. Cardiovascular: Patient's skin is warm and dry. Rhythm is irregular. Respiratory: Airway is patent Respiratory effort is even, unlabored. GI: No signs and/or symptoms were reported involving the gastrointestinal system. : No signs and/or symptoms were reported regarding the genitourinary system. EENT: No signs and/or symptoms were reported regarding the EENT system. Derm: Skin is intact, Skin is pink, warm \T\ dry. Musculoskeletal: Circulation, motion, and sensation intact. Range of motion: intact in all extremities. 22:00 Reassessment: Patient appears in no apparent distress at this time. Patient and/or jb4 family updated on plan of care and expected duration. Pain level reassessed. Patient is alert, oriented x 3, equal unlabored respirations, skin warm/dry/pink. 23:00 Reassessment: Pt is resting in bed with eyes closed, respirations are even and jb4 unlabored with no s/s of pain or distress noted. 09/09 00:00 Reassessment: Patient appears in no apparent distress at this time. No changes from jb4 previously documented assessment. Patient and/or family updated on plan of care and expected duration. Pain level reassessed. 01:08 Respiratory: Breath sounds are clear bilaterally. rv Vital Signs: 09/08 20:20 BP 134 / 51; Pulse 64; Resp 14; Temp 98.5; Pulse Ox 99% on R/A; Weight 45.81 kg; Height nj1 5 ft. 3 in. ; Pain 9/10; 22:07 BP 133 / 45; Pulse 51; Resp 15; Pulse Ox 100% on 2 lpm NC; jb4 23:30 BP 137 / 48; Pulse 54; Resp 18; Pulse Ox 100% on 2 lpm NC; jb4 20:20 Body Mass Index 17.89 (45.81 kg, 160.02 cm) nj1 20:20 Pain Scale: Adult [facility] ED Course: 20:12 Patient arrived in ED. jj6 20:39 Juan Yoder MD is Attending Physician. sp4 20:40 Triage completed. nj1 20:40 Arm band placed on. nj1 20:45 Initial lab(s) drawn, by me, sent to lab. Inserted saline lock: 20 gauge in right jb4 forearm, using aseptic technique. Blood collected. 20:57 Ferny Chavis, RN is Primary Nurse. jb4 21:20 XRAY Chest (1 view) In Process Unspecified. EDPR 09/09 00:26 Cruz Sabillon MD is Hospitalizing Provider. sp4 01:08 Patient has correct armband on for positive identification. Client placed on continuous rv cardiac and pulse oximetry monitoring. NIBP monitoring applied. 01:08 No provider procedures requiring assistance completed. Patient admitted, IV remains in rv place. Administered Medications: 09/08 21:12 Drug: fentaNYL (PF) IVP 100 mcg Route: IVP; Site: right forearm; [facility] 09/09 00:33 Follow up: Response: No adverse reaction rv 09/08 21:12 Drug: LORazepam PO 0.5 mg Route: PO; [facility] 09/09 00:32 Follow up: Response: No adverse reaction rv 09/08 21:12 Drug: Ondansetron PO 4 mg Route: PO; [facility] 09/09 00:32 Follow up: Response: No adverse reaction rv 00:46 Drug: Potassium Chloride IV 20 mEq Route: IV; Rate: calculated rate; Site: right rv forearm; 01:08 Follow up: IV Status: Infusion continued upon admission rv 00:46 Drug: Potassium PO Effervescent Tablet 50 mEq Route: PO; rv 01:08 Follow up: Response: No adverse reaction rv Medication: 01:09 VIS not applicable for this client. rv Outcome: 00:26 Decision to Hospitalize by Provider. sp4 01:09 Admitted to Med/surg accompanied by nurse, via wheelchair, room 211, with chart, Report rv called to Tony FISHER 01:09 Condition: good 01:09 Instructed on the need for admit. 01:09 Patient left the ED. rv Signatures: Dispatcher [employer] EDPR Ferny Chavis, RN RN jb4 Fahad Haley RN RN rv Rachelle [id number] Juan Yoder MD MD sp4 Stephy Patel RN RN nj1
[2022-09-09] MEDS ORDERED: KCL 20 MEQ/100 mL IVPB 100 ML IV ONE (00:45)
[2022-09-09] MEDS ORDERED: NA CHLORIDE 0.9% 250 ML ONE (00:45)
[2022-09-09] MEDS ORDERED: POTASSIUM 25 MEQ EFFERV TAB ONE (00:45)
[2022-09-09] MEDS ORDERED: POTASSIUM CL SA 10 MEQ TAB PO ONE (00:48)
[2022-09-09] MEDS ORDERED: HYDROCODONE/APAP 7.5/325 MG TAB PO PRN (01:18)
[2022-09-09] MEDS ORDERED: ONDANSETRON 4 MG/2 ML VIAL IV PRN (01:18)
--- NOTE | 2022-09-09 01:26 | P.HP ---
Certification for Inpatient Patient admitted to: Observation With expected LOS: <2 Midnights Patient will require the following post-hospital care: None Practitioner: I am a practitioner with admitting privileges, knowledge of patient current condition, hospital course, and medical plan of care. Services: Services provided to patient in accordance with Admission requirements found in Title 42 Section 412.3 of the Code of Federal Regulations Patient History Date of Service: 09/09/22 Reason for admission: Hypokalemia, chest pain History of Present Illness: 67-year-old female with history of A-fib on chronic anticoagulation/aortic valve replacement, chronic pain presents to the emergency department chief complaint of chest pain, back pain, abdominal pain. She reports the chest pain is atypical for her but she is also having generalized pain similar to her chronic pain. She is evaluated in the ER EKG without STEMI criteria initial high-sensitivity troponin negative potassium was 2.7 INR was therapeutic at 2.55 mildly increased creatinine 1.3. ED provider wishes to admit under observation for hypokalemia, ACS rule out. Allergies morphine Allergy (Intermediate, Verified 12/25/21 01:15) panic ATTACK; shaking Home Medications: Alendronate Sodium 70 mg PO EVERY 7TH DAY 12/25/21 Atorvastatin Calcium 80 mg PO BEDTIME 12/25/21 Furosemide [Lasix*] 20 mg PO DAILY 12/25/21 Gabapentin 300 mg PO TID 12/25/21 Metoprolol Tartrate [Lopressor*] 25 mg PO BID 12/25/21 Pantoprazole [Protonix Tab*] 40 mg PO BID 12/25/21 Zolpidem Tartrate [Ambien*] 10 mg PO BEDTIME 12/25/21 Aspirin [Aspirin EC 81 MG] 81 mg PO DAILY #30 tab 03/28/22 Dofetilide 125 mcg PO BID 08/21/22 Ezetimibe [Zetia*] 10 mg PO DAILY 08/21/22 Hydrocodone Bit/Acetaminophen [Hydrocodon-Acetaminoph 7.5-325] 1 each PO BID PRN 08/21/22 Warfarin Sodium 2 mg PO DAILY 08/21/22 - Past Medical/Surgical History Diabetic: No -: Atrial fibrillation/mechanical aortic valve on warfarin -: Hyperlipidemia -: HTN -: Chronic diastolic congestive heart failure -: GERD -: mechanical aortic valve -: palpitations -: Thoracic aortic aneurysm -: Chronic diastolic congestive heart failure -: HLD -: anemia -: AFIB with RVR -: aortic valve replacement -: cardioversion -: tubal ligation Psychosocial/ Personal History: Patient lives at home with her children - Family History Brother -: Heart disease, Cancer Notes: heart attack Mother -: Heart disease, Diabetes Notes: of heart attack Father -: Heart disease Notes: of heart attack Sister -: Heart disease, Diabetes, Cancer Notes: sisters x2 - DM. sister x1 - heart attack. sister- lung cancer - Social History Alcohol use: Yes CD- Drugs: No Caffeine use: No Place of Residence: Home Review of Systems 10-point ROS is otherwise unremarkable Cardiovascular: Chest Pain Musculoskeletal: Back Pain Physical Examination - Physical Exam General: Alert, In no apparent distress, Oriented x3 HEENT: Atraumatic, PERRLA, Mucous membr. moist/pink, EOMI, Sclerae nonicteric Neck: Supple, 2+ carotid pulse no bruit, No LAD, Without JVD or thyroid abnormality Respiratory: Clear to auscultation bilaterally, Normal air movement Cardiovascular: Regular rate/rhythm, Normal S1 S2 Gastrointestinal: Normal bowel sounds, No tenderness Musculoskeletal: No tenderness Integumentary: No rashes Neurological: Normal gait, Normal speech, Normal strength at 5/5 x4 extr, Normal tone, Normal affect Lymphatics: No axilla or inguinal lymphadenopathy - Studies Laboratory Data (last 24 hrs) 09/08/22 20:45: PT 28.0 H, INR 2.55 09/08/22 20:45: WBC 6.00, Hgb 10.1 L, Hct 30.2 L, Plt Count 200 09/08/22 20:45: Sodium 139, Potassium 2.7 L, BUN 14, Creatinine 1.38 H, Glucose 86, Magnesium 1.9, Total Bilirubin 0.4, AST 29, ALT 26, Alkaline Phosphatase 79 Assessment and Plan - Plan Assessment: Chest pain rule out ACS Hypokalemia Atrial fibrillation/mechanical valve on chronic anticoagulation with warfarin- therapeutic INR Chronic pain Hypertension Hyperlipidemia Plan: Chest pain rule out ACS Trend troponin, monitor on telemetry. Continue warfarin. Had stress test in March 2022 negative for stress-induced ischemia. CT of the chest was performed on 08/21/2022 negative for PE did show 4 cm descending thoracic aneurysm which patient is aware of. No ripping/tearing pain or significant hypertension currently to suggest dissection. Hypokalemia Replaced in ED, protocol in place, magnesium level normal. Atrial fibrillation/mechanical valve on chronic anticoagulation with warfarin-t herapeutic INR INR is therapeutic. Continue warfarin, monitor on telemetry. Continue other home medications. Chronic pain Patient complaining of pain in her back, abdomen, chest she reports this is typical of her pain she is requesting IV narcotics frequently. She received 100 mcg of fentanyl in the emergency department and was sleeping when I walked into the room, when she awoke she merely began complaining of pain requesting additional IV medications. I have continued her home [place] and gabapentin and instructed her to follow-up with her pain management doctor. Hypertension Hyperlipidemia Continue on medications. Holding metoprolol given relative bradycardia/slow A- fib with rate in the 50s. DVT PPX: Continue warfarin Code status: Full Discharge Plan: Home Plan to discharge in: 24 Hours - Advance Directives Does patient have a Living Will: No Does patient have a Durable POA for Healthcare: No - Code Status/Comfort Care Code Status Assessed: Yes (Full code) Critical Care: No Time Spent Managing Pts Care (In Minutes): 55
[2022-09-09 02:28] VITALS: BMI 17.9
[2022-09-09 07:12] LABS: Absolute Lymphocytes (CBC) 1.1 K/uL (0.7-4.9); Hematocrit 26.3 % (36.0-45.0); MCV 90.4 fL (80-100); MPV 8.6 fL (7.6-11.3); RBC Red Blood Cell Count 2.91 M/uL (3.86-4.86)
[2022-09-09 07:21] LABS: Protime INR 2.86
--- NOTE | 2022-09-09 07:26 | EKG ---
Test Date: 2022-09-08 Test Time: 20:24:49 Interior Decorator Painting: SUAD MEASUREMENT RESULTS: Intervals: Rate: 64 [place]: 224 QRSD: 108 QT: 480 QTc: 495 [place]: P: 75 [place]: 224 QRS: 55 T: 54 INTERPRETIVE STATEMENTS: Sinus rhythm with 1st degree AV block with premature atrial complexes ST abnormality, possible digitalis effect Prolonged QT Abnormal ECG Compared to ECG 08/24/2022 00:08:37 Atrial premature complex(es) now present Prolonged QT interval now present Sinus bradycardia no longer present Sinus arrhythmia no longer present ST (T wave) deviation still present Electronically Signed On 09-09-22 07:25:09 CDT by Soren Carter
[2022-09-09 07:29] LABS: Potassium 4.1 mEq/L (3.5-5.1)
[2022-09-09] MEDS: GABAPENTIN 300 MG CAP PO SCH ×3 (08:23→21:36)
[2022-09-09] MEDS: ASPIRIN EC 81 MG TAB PO SCH (08:24)
[2022-09-09] MEDS: HYDROMORPHONE HCL 1 MG/ML INJ IV SCH ×3 (11:28→23:52)
[2022-09-09] MEDS ORDERED: WARFARIN SODIUM 2 MG TAB PO SCH (17:00)
[2022-09-09] MEDS ORDERED: ATORVASTATIN 40 MG TAB PO SCH (21:00)
[2022-09-10 03:34] LABS: Hematocrit 25.3 % (36.0-45.0); Lymphocytes % 15.4 % (15.3-44.8); MCV 89.8 fL (80-100); MPV 8.8 fL (7.6-11.3); RBC Red Blood Cell Count 2.81 M/uL (3.86-4.86)
[2022-09-10 03:37] LABS: Protime INR 2.53
[2022-09-10 03:51] LABS: Magnesium 1.9 mg/dL (1.6-2.4); Potassium 4.3 mEq/L (3.5-5.1)
[2022-09-10 04:03] VITALS: O2SAT 98
[2022-09-10] MEDS: HYDROMORPHONE HCL 1 MG/ML INJ IV SCH (05:39)
--- NOTE | 2022-09-10 08:13 | P.DS ---
Discharge Date: 09/10/22 Disposition: ROUTINE DISCHARGE Discharge Condition: GOOD Reason for Admission: Hypokalemia, chest pain Vital Signs/Physical Exam: Temp Pulse Resp BP Pulse Ox 97.5 F 58 16 133/63 0 L 09/10/22 04:00 09/10/22 04:00 09/10/22 04:00 09/10/22 04:00 09/10/22 04:00 Laboratory Data at Discharge: WBC 6.20 thou/uL (4.3-10.9) 09/10/22 02:51 Hgb 8.4 g/dL (12.0-15.0) L 09/10/22 02:51 Hct 25.3 % (36.0-45.0) L 09/10/22 02:51 Plt Count 196 thou/uL (152-406) 09/10/22 02:51 PT 27.8 SECONDS (9.5-12.5) H 09/10/22 02:51 INR 2.53 09/10/22 02:51 Sodium 142 mEq/L (136-145) 09/10/22 02:51 Potassium 4.3 mEq/L (3.5-5.1) 09/10/22 02:51 BUN 13 mg/dL (7-18) 09/10/22 02:51 Creatinine 0.93 mg/dL (0.55-1.02) 09/10/22 02:51 Glucose 117 mg/dL (74-106) H 09/10/22 02:51 Magnesium 1.9 mg/dL (1.6-2.4) 09/10/22 02:51 Total Bilirubin 0.4 mg/dL (0.2-1.0) 09/08/22 20:45 AST 29 U/L (15-37) 09/08/22 20:45 ALT 26 U/L (13-56) 09/08/22 20:45 Alkaline Phosphatase 79 U/L (45-117) 09/08/22 20:45 Home Medications: Alendronate Sodium 70 mg PO EVERY 7TH DAY 12/25/21 Atorvastatin Calcium 80 mg PO BEDTIME 12/25/21 Furosemide [Lasix*] 20 mg PO DAILY 12/25/21 Gabapentin 300 mg PO TID 12/25/21 Metoprolol Tartrate [Lopressor*] 25 mg PO BID 12/25/21 Pantoprazole [Protonix Tab*] 40 mg PO BID 12/25/21 Zolpidem Tartrate [Ambien*] 10 mg PO BEDTIME 12/25/21 Aspirin [Aspirin EC 81 MG] 81 mg PO DAILY #30 tab 03/28/22 Dofetilide 125 mcg PO BID 08/21/22 Ezetimibe [Zetia*] 10 mg PO DAILY 08/21/22 Hydrocodone Bit/Acetaminophen [Hydrocodon-Acetaminoph 7.5-325] 1 each PO BID PRN 08/21/22 Warfarin Sodium 2 mg PO DAILY 08/21/22 Physician Discharge Instructions: -DC IV and DC home -Follow-up with PCP in 1 to 2 weeks -Follow-up with Cardiology in 1 to 2 weeks -Please call Dr. Sabillon at [phone] if any questions regarding hospital stay -Please call nursing station at [phone] if any nursing or medication questions -Return to the emergency room if symptoms worsen Diet: AHA Activity: Fall precautions Followup: Shar Roa MD [Primary Care Provider] -
[2022-09-10 09:02] VITALS: BP 129/63; TEMP 97.9
[2022-09-10] MEDS: GABAPENTIN 300 MG CAP PO SCH ×2 (09:53→09:56)
[2022-09-10] MEDS: ASPIRIN EC 81 MG TAB PO SCH (09:54)
== END 2022-09-10 10:45 | disposition home or self-care (01) ==
LOC: ER 20:10 → 2ND 09-09 00:43
PROVIDERS: ADMIT Hospitalist; ATTEND Hospitalist
DX: R07.9 Chest pain, unspecified (principal); E87.6 Hypokalemia; M54.9 Dorsalgia, unspecified; I48.11 Longstanding persistent atrial fibrillation; I10 Essential (primary) hypertension; E78.5 Hyperlipidemia, unspecified; Z95.4 Presence of other heart-valve replacement; G89.29 Other chronic pain; Z82.49 Family history of ischemic heart disease and other diseases of the circulatory system; Z80.9 Family history of malignant neoplasm, unspecified; Z79.01 Long term (current) use of anticoagulants; Z88.6 Allergy status to analgesic agent
CPT/HCPCS: 96365; 93005; 85025 ×3; 80048 ×3; 36415 ×2; 83735 ×3; 85610 ×3; 80076; 84484 ×3; 83880; 71045; 96375; 99285; J3480; Q0162; J3010; J1170 ×4; J7050; G0378 ×3

== ENCOUNTER 2022-10-14 02:30 | Inpatient (IN) | payer OTHER ==
--- OUTSIDE RECORDS SUMMARY | 2022-10-14 02:49 | XMS REPORT | Continuity of Care Document ---
:1955 Author Organization [facility] t Address [address] [place] [address] Care Team Providers Name Role Phone Saurabh [...] Adc Lab Main Attending Clinician Unavailable Yolande Santacruz MD Attending Clinician Doctor Unassigned, Bonita Attending Clinician Unavailable JOSEPH CORTES Attending Clinician Unavailable Joseph Cortes MD Attending Clinician Jeremy Mulligan RN Attending Clinician Unavailable Hima LOVELL, Wayne Attending Clinician MEAGHAN MONTANA Attending Clinician Unavailable Sean Graham MD Attending Clinician [phone] Vinayak Cook MD Attending Clinician Lynnette LOVELL, Shadi Jhaveri Attending Clinician [phone] Latasha LOVELL, Franc Calles Attending Clinician Angela LOVELL, Purnima Attending Clinician Benedicto LOVELL, Benjamin Attending Clinician Rubén LOVELL, Meaghan Reilly Attending Clinician , [facility] Attending Clinician Unavailable YOLANDE SANTACRUZ Attending Clinician Unavailable Franco FISHER, Georgie Attending Clinician Unavailable Josemanuel LOVELL, Carmen Attending Clinician Ricky RODRÍGUEZ Attending Clinician Unavailable Ricky Ibarra Attending Clinician JOSE VILLA Attending Clinician Unavailable Omero WAHLP, Jose Mauricio Attending Clinician CALEB RODRIGUES Attending Clinician Unavailable [...] Number Effective Date Expiration Date Judi hamilton [facility] DUAL [id number] 2020 COMP HMO D SNP 00:00:00 [facility] [id number] 2013 PLUS 00:00:00 [employer]ICARE [id number] 2020 00:00:00 [facility] COMM STAR [id number] 2022 PLAN 00:00:00 [place]ICA[place] [id number] 2022 00:00:00 Problems Condition Condition Condition Status Onset Resolution Last Treating Co mments Source Name Details Category Date Date Treatment Clinician Date 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 00:00: [place] with with 00 Medical preserved preserved Bran ch ejection ejection fraction fraction 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 aorta aorta 00 Medical Branch 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 [place] on 00 Medical Branch Acute Acute Disease Active [facility] blood loss blood loss 2-07 [facility] anemia anemia 00:00: Medical 00 Center Suprathera Suprathera Disease Active C [...] 00:00: [place] involving involving 00 Medi tyrone venetie ira venetie ira 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 ira venetie 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 8-20 ity of disease disease 00:00: [place] involving involving 00 Medi tyrone venetie ira venetie ira 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 ira venetie 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 2-20 ity of disease disease 00:00: [place] involving involving 00 Medi tyrone venetie ira ven[place]ie ira Branch heart heart without without angina angina [...] Date Stop Date Source Natural mother Diabetes [facility] Natural mother Heart [facility] Other Diabetes [facility] Natural sister Cancer [facility] Natural sister Diabetes [facility] Social History Social Habit Start Date Stop Date Quantity Comments Source History SDOH Social Unive rsity of Connections [facility] Med ical Together Branch History SDOH Social Unive rsity of Connections [facility] Medical Branch History SDOH Social Unive rsity of Connections [place] [facility] Membership Branch History SDOH Social Unive rsity of Connections [place] Medical Meetings Branch Exposure to 2022-08-18 2022-08-28 Not sure University of SARS-CoV-2 (event) 00:00:00 12:47:00 [place] [facility] History SDOH 2022-06-07 2022-06-07 [...] Unive rsity of Connections Living 00:00:00 00:00:00 [place] [facility] History SDOH 2022-06-07 2022-06-07 0 University o f Physical Activity 00:00:00 00:00:00 [place] M edical DPW Branch History SDMI 2022-06-07 2022-06-07 0 University o f Physical Activity 00:00:00 00:00:00 [facility] edical MPS Branch History SDOH 2022-06-07 2022-06-07 5 University o f Financial 00:00:00 00:00:00 [place] [facility] History SDMI Food 2022-06-07 2022-06-07 1 Univers ity of Worry 00:00:00 00:00:00 [place] [facility] History SDOH Food 2022-06-07 2022-06-07 1 Univers ity of Scarcity 00:00:00 00:00:00 [place] [facility] History SDMI 2022-06-07 2022-06-07 2 University o f Transport Med 00:00:00 00:00:00 [place] Medic al Branch History SDMI 2022-06-07 2022-06-07 2 University o f Transport Non-Med 00:00:00 00:00:00 [facility] edical Branch Education 2022-06-06 2022-06-06 14 University of 00:00:00 00:00:00 [place] [facility] Tobacco use and 2022-06-06 2022-06-06 Smokeless Universit y of exposure 00:00:00 00:00:00 tobacco non-user [facility] dical Branch Alcohol intake 2022-05-19 2022-05-19 Ex-drinker [facility] 00:00:00 00:00:00 (finding) Medical Center History [facility] 2022-05-18 2022-05-[address] [facility] Unable to 00:00:00 00:00:00 Medical Center Pay History [facility] 2022-05-18 2022-05-[address] [facility] Housing Places 00:00:00 00:00:00 Medical Ce nter Lived History [facility] 2022-05-18 2022-05-[address] [facility] Homeless 00:00:00 00:00:00 Medical Center Last Year Sex Assigned At [address] [facility] kes 00:00:00 00:00:00 Medical Center Smoking Status Start Date Stop Date Source Never smoked tobacco [facility] Medications Ordered Filled Start Stop Current Ordering Indication Dosage Frequency Signature Comments Components Source Medication Medication Date Date Medication? Clinician (SIG) Name Name ezetimibe 3-0 Yes [id number] 10mg Take 1 U nivers (ZETIA) 10 4-18 tablet by ity of mg tablet [place] the Medical morning. Branch ezetimibe 3-0 Yes [id number] 10mg Take 1 U nivers (ZETIA) 10 4-18 tablet by ity of mg tablet [place] the Medical morning. Branch ezetimibe 3-0 Yes [id number] 10mg Take 1 U nivers (ZETIA) 10 4-18 tablet by ity of mg tablet 00:00: [place] the Medical morning. Branch ezetimibe 3-0 Yes [id number] 10mg Take 1 U nivers (ZETIA) 10 4-18 tablet by ity of mg tablet 00:00: [place] the Medical morning. Branch ezetimibe 3-0 Yes [id number] 10mg Take 1 U nivers (ZETIA) 10 4-18 tablet by ity of mg tablet 00:00: [place] 00 the Medical morning. Branch ezetimibe 3-0 Yes [id number] 10mg Take 1 U nivers (ZETIA) 10 4-18 tablet by ity of mg tablet 00:00: [place] the Medical morning. Branch ezetimibe 3-0 Yes [id number] 10mg Take 1 U nivers (ZETIA) 10 4-18 tablet by ity of mg tablet 00:00: [place] the Medical morning. Branch ezetimibe 3-0 Yes [id number] 10mg Take 1 U nivers (ZETIA) 10 4-18 tablet by ity of mg tablet 00:00: [place] 00 the Medical morning. Branch ezetimibe 3-0 Yes [id number] 10mg Take 1 U nivers (ZETIA) 10 4-18 tablet by ity of mg tablet 00:00: [place] 00 the Medical morning. Branch ezetimibe 3-0 Yes [id number] 10mg Take 1 U nivers (ZETIA) 10 4-18 tablet by ity of mg tablet 00:00: [place] 00 the Medical morning. Branch ezetimibe 2023-0 Yes [id number] 10mg Take 1 U nivers (ZETIA) 10 4-18 tablet by ity of mg tablet 00:00: [place] the Medical morning. Branch ezetimibe 2023-0 Yes [id number] 10mg Take 1 U nivers (ZETIA) 10 4-18 tablet by ity of mg tablet 00:00: [place] 00 the Medical morning. Branch ezetimibe 2023-0 Yes [id number] 10mg Take 1 U nivers (ZETIA) 10 4-18 tablet by ity of mg tablet 00:00: [place] 00 the Medical morning. Branch ezetimibe 2023-0 Yes [id number] 10mg Take 1 U nivers (ZETIA) 10 4-18 tablet by ity of mg tablet 00:00: [place] 00 the Medical morning. Branch ezetimibe 3-0 Yes [id number] 10mg Take 1 U nivers (ZETIA) 10 4-18 tablet by ity of mg tablet 00:00: [place] 00 the Medical morning. Branch ezetimibe 3-0 Yes [id number] 10mg Take 1 U nivers (ZETIA) 10 4-18 tablet by ity of mg tablet 00:00: [place] 00 the Medical morning. Branch ezetimibe 2023-0 Yes [id number] 10mg Take 1 U nivers (ZETIA) 10 4-18 tablet by ity of mg tablet 00:00: [place] 00 the Medical morning. Branch ezetimibe 2023-0 Yes [id number] 10mg Take 1 U nivers (ZETIA) 10 4-18 tablet by ity of mg tablet 00:00: [place] 00 the Medical morning. Branch ezetimibe 2023-0 Yes [id number] 10mg Take 1 U nivers (ZETIA) 10 4-18 tablet by ity of mg tablet 00:00: [place] 00 the Medical morning. Branch ezetimibe 2023-0 Yes [id number] 10mg Take 1 U nivers (ZETIA) 10 4-18 tablet by ity of mg tablet 00:00: [place] 00 the Medical morning. Branch ezetimibe 2023-0 Yes [id number] 10mg Take 1 U nivers (ZETIA) 10 4-18 tablet by ity of mg tablet 00:00: [place] 00 the Medical morning. Branch ezetimibe 2023-0 Yes [id number] 10mg Take 1 U nivers (ZETIA) 10 4-18 tablet by ity of mg tablet 00:00: [place] 00 the Medical morning. Branch ezetimibe 202-0 Yes [id number] 10mg Take 1 U nivers (ZETIA) 10 4-18 tablet by ity of mg tablet 00:00: [place] 00 the Medical morning. Branch alendronate 0 Yes 70mg 70 mg, Univ [...] mg per 55 Medical tablet Branch HYDROcodone 3-0 Yes 1 tablet Un chong -acetaminop 2-28 [...] mg per 55 Medical tablet Branch Fesoterodin 2022-0 2022- No 1 tablet U terri e (TOSCOTT) 2-27 02-27 ity of 4 mg tablet 16:41: 00:00 [...] 35 Medical tablet Branch NaCl 0.9% Yes [id number] 250mL at 20 U nivers (NS) IV 2 mL/hr, IV ity of infusion 16:15: [place] 250 [place] 00 CONTINUOUS Medical , Starting Branch on Sat06/11/22 at 1015, Until Discontinu ed, Routine&lt ;br>KVO
lidocaine 2022- No [id number] 15mL 15 mL, Univers 2% viscous 06-11 9107 Oral, ity of (LIDOCAINE 16:15: 16:15 ONCE, 1 [place] as VISCOUS) 2 00 :00 dose, On Medic al % solution Mon Branch 15 mL 06/11/22 at 1015, Routine FENTanyl PF 2022- No [id number] 50ug 50 mcg, Univers (SUBLIMAZE 06-11 9107 Slow IV ity o f (PF)) 16:15: 16:15 Push, [place] injection 00 :00 ONCE, 1 Medical 50 mcg dose, On Branch 06/11/22 at 1015, Routine midazolam 2022- No [id number] 1mg 1 mg, IV Univers (VERSED) 06-11 06-11 9107 Push, ity of injection 1 16:15: 16:15 ONCE, 1 [place] mg 00 :00 dose, On Medical Mon [place] 06/11/22 at 1015, Routine warfarin 1 Yes [id number] 2mg Take 2 Univers mg tablet 2-27 tablets by ity of 00:00: mouth [place] 00 every Medical evening. Branch Alternate take 1mg x3 days, then 2mg x 4 days warfarin Yes [id number] 2mg Take 2 Univers mg tablet 2-27 tablets by ity of 00:00: mouth [place] 00 every Medical evening. Branch Alternate take 1mg x3 days, then 2mg x 4 days warfarin Yes [id number] 2mg Take 2 Univers mg tablet 2-27 tablets by ity of 00:00: mouth [place] 00 every Medical evening. Branch Alternate take 1mg x3 days, then 2mg x 4 days warfarin Yes [id number] 2mg Take 2 Univers mg tablet 2-27 tablets by ity of 00:00: mouth [place] 00 every Medical evening. Branch Alternate take 1mg x3 days, then 2mg x 4 days warfarin Yes [id number] 2mg Take 2 Univers mg tablet 2-27 tablets by ity of 00:00: mouth [place] 00 every Medical evening. Branch Alternate take 1mg x3 days, then 2mg x 4 days warfarin Yes [id number] 2mg Take 2 Univers mg tablet 2-27 tablets by ity of 00:00: mouth [place] 00 every Medical evening. Branch Alternate take 1mg x3 days, then 2mg x 4 days warfarin 1 Yes [id number] 2mg Take 2 Univers mg tablet 2-27 tablets by ity of 00:00: mouth [place] 00 every Medical evening. Branch Alternate take 1mg x3 days, then 2mg x 4 days warfarin Yes [id number] 2mg Take 2 Univers mg tablet 2-27 tablets by ity of 00:00: mouth [place] 00 every Medical evening. Branch Alternate take 1mg x3 days, then 2mg x 4 days warfarin 1 Yes [id number] 2mg Take 2 Univers mg tablet 2-27 tablets by ity of 00:00: mouth [place] 00 every Medical evening. Branch Alternate take 1mg x3 days, then 2mg x 4 days warfarin 1 2022-0 Yes [id number] 2mg Take 2 Univers mg tablet 2-27 tablets by ity of 00:00: mouth [place] 00 every Medical evening. Branch Alternate take 1mg x3 days, then 2mg x 4 days warfarin 1 0 Yes [id number] 2mg Take 2 Univers mg tablet 2-27 tablets by ity of 00:00: mouth [place] 00 every Medical evening. Branch Alternate take 1mg x3 days, then 2mg x 4 days warfarin 1 0 Yes [id number] 2mg Take 2 Univers mg tablet 2-27 tablets by ity of 00:00: mouth [place] 00 every Medical evening. Branch Alternate take 1mg x3 days, then 2mg x 4 days warfarin 1 Yes [id number] 2mg Take 2 Univers mg tablet 2-27 tablets by ity of 00:00: mouth [place] 00 every Medical evening. Branch Alternate take 1mg x3 days, then 2mg x 4 days warfarin Yes [id number] 2mg Take 2 Univers mg tablet 2-27 tablets by ity of 00:00: mouth [place] 00 every Medical evening. Branch Alternate take 1mg x3 days, then 2mg x 4 days warfarin 1 2022-0 Yes [id number] 2mg Take 2 Univers mg tablet 2-27 tablets by ity of 00:00: mouth [place] 00 every Medical evening. Branch Alternate take 1mg x3 days, then 2mg x 4 days warfarin 1 2022-0 Yes [id number] 2mg Take 2 Univers mg tablet 2-27 tablets by ity of 00:00: mouth [place] 00 every Medical evening. Branch Alternate take 1mg x3 days, then 2mg x 4 days warfarin 1 0 Yes [id number] 2mg Take 2 Univers mg tablet 2-27 tablets by ity of 00:00: mouth [place] 00 every Medical evening. Branch Alternate take 1mg x3 days, then 2mg x 4 days warfarin 1 2022-0 Yes [id number] 2mg Take 2 Univers mg tablet 2-27 tablets by ity of 00:00: mouth [place] 00 every Medical evening. Branch Alternate take 1mg x3 days, then 2mg x 4 days warfarin 1 2022-0 Yes [id number] 2mg Take 2 Univers mg tablet 2-27 tablets by ity of 00:00: mouth [place] 00 every Medical evening. Branch Alternate take 1mg x3 days, then 2mg x 4 days warfarin 1 2022-0 Yes [id number] 2mg Take 2 Univers mg tablet 2-27 tablets by ity of 00:00: mouth [place] 00 every Medical evening. Branch Alternate take 1mg x3 days, then 2mg x 4 days warfarin 1 2022-0 Yes [id number] 2mg Take 2 Univers mg tablet 2-27 tablets by ity of 00:00: mouth [place] 00 every Medical evening. Branch Alternate take 1mg x3 days, then 2mg x 4 days warfarin 1 2022-0 Yes [id number] 2mg Take 2 Univers mg tablet 2-27 tablets by ity of 00:00: mouth [place] 00 every Medical evening. Branch Alternate take 1mg x3 days, then 2mg x 4 days warfarin 1 2022-0 Yes [id number] 2mg Take 2 Univers mg tablet 2-27 tablets by ity of 00:00: mouth [place] 00 every Medical evening. Branch Alternate take 1mg x3 days, then 2mg x 4 days warfarin 1 2022-0 Yes [id number] 2mg Take 2 Univers mg tablet 2-27 tablets by ity of 00:00: mouth [place] 00 every Medical evening. Branch Alternate take 1mg x3 days, then 2mg x 4 days warfarin 1 2022-0 Yes [id number] 2mg Take 2 Univers mg tablet 2-27 tablets by ity of 00:00: mouth [place] 00 every Medical evening. Branch Alternate take 1mg x3 days, then 2mg x 4 days warfarin 1 0 Yes [id number] 2mg Take 2 Univers mg tablet 2-27 tablets by ity of 00:00: mouth [place] 00 every Medical evening. Branch Alternate take 1mg x3 days, then 2mg x 4 days warfarin 1 2022-0 Yes [id number] 2mg Take 2 Univers mg tablet 2-27 tablets by ity of 00:00: mouth [place] 00 every Medical evening. Branch Alternate take 1mg x3 days, then 2mg x 4 days warfarin 1 2022-0 Yes [id number] 2mg Take 2 Univers mg tablet 2-27 tablets by ity of 00:00: mouth [place] 00 every Medical evening. Branch Alternate take 1mg x3 days, then 2mg x 4 days warfarin 1 2022-0 Yes [id number] 2mg Take 2 Univers mg tablet 2-27 tablets by ity of 00:00: mouth [place] 00 every Medical evening. Branch Alternate take 1mg x3 days, then 2mg x 4 days warfarin 1 2022-0 Yes [id number] 2mg Take 2 Univers mg tablet 2-27 tablets by ity of 00:00: mouth [place] 00 every Medical evening. Branch Alternate take 1mg x3 days, then 2mg x 4 days warfarin 1 2022-0 Yes [id number] 2mg Take 2 Univers mg tablet 2-27 tablets by ity of 00:00: mouth [place] 00 every Medical evening. Branch Alternate take 1mg x3 days, then 2mg x 4 days warfarin 1 2022-0 Yes [id number] 2mg Take 2 Univers mg tablet 2-27 tablets by ity of 00:00: mouth [place] 00 every Medical evening. Branch Alternate take 1mg x3 days, then 2mg x 4 days warfarin 2022-0 Yes [id number] 2mg Take 2 Univers mg tablet 2-27 tablets by ity of 00:00: mouth [place] 00 every Medical evening. Branch Alternate take 1mg x3 days, then 2mg x 4 days warfarin 2022-0 Yes [id number] 2mg Take 2 Univers mg tablet 2-27 tablets by ity of 00:00: mouth [place] 00 every Medical evening. Branch Alternate take 1mg x3 days, then 2mg x 4 days warfarin 1 2022-0 Yes [id number] 2mg Take 2 Univers mg tablet 2-27 tablets by ity of 00:00: mouth [place] 00 every Medical evening. Branch Alternate take 1mg x3 days, then 2mg x 4 days warfarin 1 2022-0 Yes [id number] 2mg Take 2 Univers mg tablet 2-27 tablets by ity of 00:00: mouth [place] 00 every Medical evening. Branch Alternate take 1mg x3 days, then 2mg x 4 days warfarin 1 2022-0 Yes [id number] 2mg Take 2 Univers mg tablet 2-27 tablets by ity of 00:00: mouth [place] 00 every Medical evening. Branch Alternate take 1mg x3 days, then 2mg x 4 days warfarin 1 2022-0 Yes [id number] 2mg Take 2 Univers mg tablet 2-27 tablets by ity of 00:00: mouth [place] 00 every Medical evening. Branch Alternate take 1mg x3 days, then 2mg x 4 days warfarin 1 2022-0 Yes [id number] 2mg Take 2 Univers mg tablet 2-27 tablets by ity of 00:00: mouth [place] 00 every Medical evening. Branch Alternate take 1mg x3 days, then 2mg x 4 days warfarin 1 2022-0 Yes [id number] 2mg Take 2 Univers mg tablet 2-27 tablets by ity of 00:00: mouth [place] 00 every Medical evening. Branch Alternate take 1mg x3 days, then 2mg x 4 days warfarin 1 0 Yes [id number] 2mg Take 2 Univers mg tablet 2-27 tablets by ity of 00:00: mouth [place] 00 every Medical evening. Branch Alternate take 1mg x3 days, then 2mg x 4 days dofetilide 2022- No [id number] 250ug Take 1 Univers 250 mcg 2-27 05-29 capsule by ity o f capsule 00:00: 04:59 mouth [place] 00 :00 every 12 Medical (twelve) Branch hours for 90 days. dofetilide 2022- No [id number] 250ug Take 1 Univers 250 mcg 2-27 05-29 capsule by ity o f capsule 00:00: 04:59 mouth [place] 00 :00 every 12 Medical (twelve) Branch hours for 90 days. dofetilide 2022- No [id number] 250ug Take 1 Univers 250 mcg 2-27 05-29 capsule by ity o f capsule 00:00: 04:59 mouth [place] 00 :00 every 12 Medical (twelve) Branch hours for 90 days. dofetilide 2022- No [id number] 250ug Take 1 Univers 250 mcg 2-27 05-29 capsule by ity o f capsule 00:00: 04:59 mouth [place] 00 :00 every 12 Medical (twelve) Branch hours for 90 days. dofetilide 2022- No [id number] 250ug Take 1 Univers 250 mcg 2-27 05-29 capsule by ity o f capsule 00:00: 04:59 mouth [place] 00 :00 every 12 Medical (twelve) Branch hours for 90 days. dofetilide 2022- No [id number] 250ug Take 1 Univers 250 mcg 2-27 05-29 capsule by ity o f capsule 00:00: 04:59 mouth [place] 00 :00 every 12 Medical (twelve) Branch hours for 90 days. dofetilide 2022- No [id number] 250ug Take 1 Univers 250 mcg 2-27 05-29 capsule by ity o f capsule 00:00: 04:59 mouth [place] 00 :00 every 12 Medical (twelve) Branch hours for 90 days. dofetilide 2022- No [id number] 250ug Take 1 Univers 250 mcg 2-27 05-29 capsule by ity o f capsule 00:00: 04:59 mouth [place] 00 :00 every 12 Medical (twelve) Branch hours for 90 days. dofetilide 2022- No [id number] 250ug Take 1 Univers 250 mcg 2-27 05-29 capsule by ity o f capsule 00:00: 04:59 mouth [place] 00 :00 every 12 Medical (twelve) Branch hours for 90 days. dofetilide 2022- No [id number] 250ug Take 1 Univers 250 mcg 2-27 05-29 capsule by ity o f capsule 00:00: 04:59 mouth [place] 00 :00 every 12 Medical (twelve) Branch hours for 90 days. dofetilide 2022- No [id number] 250ug Take 1 Univers 250 mcg 2-27 05-29 capsule by ity o f capsule 00:00: 04:59 mouth [place] 00 :00 every 12 Medical (twelve) Branch hours for 90 days. dofetilide 2022- No [id number] 250ug Take 1 Univers 250 mcg 2-27 05-29 capsule by ity o f capsule 00:00: 04:59 mouth [place] 00 :00 every 12 Medical (twelve) Branch hours for 90 days. dofetilide 2022- No [id number] 250ug Take 1 Univers 250 mcg 2-27 05-29 capsule by ity o f capsule 00:00: 04:59 mouth [place] 00 :00 every 12 Medical (twelve) Branch hours for 90 days. dofetilide 2022- No [id number] 250ug Take 1 Univers 250 mcg 2-27 05-29 capsule by ity o f capsule 00:00: 04:59 mouth [place] 00 :00 every 12 Medical (twelve) Branch hours for 90 days. dofetilide 2022- No [id number] 250ug Take 1 Univers 250 mcg 2-27 05-29 capsule by ity o f capsule 00:00: 04:59 mouth [place] 00 :00 every 12 Medical (twelve) Branch hours for 90 days. dofetilide 2022- No [id number] 250ug Take 1 Univers 250 mcg 2-27 05-29 capsule by ity o f capsule 00:00: 04:59 mouth [place] 00 :00 every 12 Medical (twelve) Branch hours for 90 days. dofetilide 2022- No [id number] 250ug Take 1 Univers 250 mcg 2-27 05-29 capsule by ity o f capsule 00:00: 04:59 mouth [place] 00 :00 every 12 Medical (twelve) Branch hours for 90 days. dofetilide 2022- No [id number] 250ug Take 1 Univers 250 mcg 2-27 05-29 capsule by ity o f capsule 00:00: 04:59 mouth [place] 00 :00 every 12 Medical (twelve) Branch hours for 90 days. dofetilide 2022- No [id number] 250ug Take 1 Univers 250 mcg 2-27 05-29 capsule by ity o f capsule 00:00: 04:59 mouth [place] 00 :00 every 12 Medical (twelve) Branch hours for 90 days. dofetilide 2022- No [id number] 250ug Take 1 Univers 250 mcg 2-27 05-29 capsule by ity o f capsule 00:00: 04:59 mouth [place] 00 :00 every 12 Medical (twelve) Branch hours for 90 days. dofetilide 2022- No [id number] 250ug Take 1 Univers 250 mcg 2-27 05-29 capsule by ity o f capsule 00:00: 04:59 mouth [place] 00 :00 every 12 Medical (twelve) Branch hours for 90 days. dofetilide 2022- No [id number] 250ug Take 1 Univers 250 mcg 2-27 05-29 capsule by ity o f capsule 00:00: 04:59 mouth [place] 00 :00 every 12 Medical (twelve) Branch hours for 90 days. dofetilide 2022- No [id number] 250ug Take 1 Univers 250 mcg 2-27 05-29 capsule by ity o f capsule 00:00: 04:59 mouth [place] 00 :00 every 12 Medical (twelve) Branch hours for 90 days. dofetilide 2022- No [id number] 250ug Take 1 Univers 250 mcg 2-27 05-29 capsule by ity o f capsule 00:00: 04:59 mouth [place] 00 :00 every 12 Medical (twelve) Branch hours for 90 days. dofetilide 2022- No [id number] 250ug Take 1 Univers 250 mcg 2-27 05-29 capsule by ity o f capsule 00:00: 04:59 mouth [place] 00 :00 every 12 Medical (twelve) Branch hours for 90 days. dofetilide 2022- No [id number] 250ug Take 1 Univers 250 mcg 2-27 05-29 capsule by ity o f capsule 00:00: 04:59 mouth [place] 00 :00 every 12 Medical (twelve) Branch hours for 90 days. dofetilide 2022- No [id number] 250ug Take 1 Univers 250 mcg 2-27 05-29 capsule by ity o f capsule 00:00: 04:59 mouth [place] 00 :00 every 12 Medical (twelve) Branch hours for 90 days. dofetilide 2022- No [id number] 250ug Take 1 Univers 250 mcg 2-27 05-29 capsule by ity o f capsule 00:00: 04:59 mouth [place] 00 :00 every 12 Medical (twelve) Branch hours for 90 days. dofetilide 2022- No [id number] 250ug Take 1 Univers 250 mcg 2-27 05-29 capsule by ity o f capsule 00:00: 04:59 mouth [place] 00 :00 every 12 Medical (twelve) Branch hours for 90 days. dofetilide 2022- No [id number] 250ug Take 1 Univers 250 mcg 2-27 05-29 capsule by ity o f capsule 00:00: 04:59 mouth [place] 00 :00 every 12 Medical (twelve) Branch hours for 90 days. dofetilide 2022- No [id number] 250ug Take 1 Univers 250 mcg 2-27 05-29 capsule by ity o f capsule 00:00: 04:59 mouth [place] 00 :00 every 12 Medical (twelve) Branch hours for 90 days. dofetilide No [id number] 250ug Take 1 Univers 250 mcg 2-27 05-29 capsule by ity o f capsule 00:00: 04:59 mouth [place] 00 :00 every 12 Medical (twelve) Branch hours for 90 days. dofetilide No [id number] 250ug Take 1 Univers 250 mcg 2-27 05-29 capsule by ity o f capsule 00:00: 04:59 mouth [place] 00 :00 every 12 Medical (twelve) Branch hours for 90 days. dofetilide 2022- No [id number] 250ug Take 1 Univers 250 mcg 2-27 05-29 capsule by ity o f capsule 00:00: 04:59 mouth [place] 00 :00 every 12 Medical ([facility]) Branch hours for 90 days. enoxaparin No [id number] 40mg inject 0.4 Univers 40 mg/0.4 2-27 03-05 mL under ity o f mL 00:00: 05:59 the skin [place] injection 00 :00 in the [facility] Branch for 5 days. enoxaparin No [id number] 40mg inject 0.4 Univers 40 mg/0.4 2-27 03-05 mL under ity o f mL 00:00: 05:59 the skin [place] injection 00 :00 in the [facility] Branch for 5 days. enoxaparin No [id number] 40mg inject 0.4 Univers 40 mg/0.4 2-27 03-05 mL under ity o f mL 00:00: 05:59 the skin [place] injection 00 :00 in the [facility] Branch for 5 days. enoxaparin No [id number] 40mg inject 0.4 Univers 40 mg/0.4 2-27 03-05 mL under ity o f mL 00:00: 05:59 the skin [place] injection 00 :00 in the [facility] Branch for 5 days. enoxaparin 2022- No [id number] 40mg inject 0.4 Univers 40 mg/0.4 - 03-05 mL under ity o f mL 00:00: 05:59 the skin [place] injection 00 :00 in the Medical morning Branch for 5 days. enoxaparin 2022- No [id number] 40mg inject 0.4 Univers 40 mg/0.4 - 03-05 mL under ity o f mL 00:00: 05:59 the skin [place] injection 00 :00 in the Medical morning Branch for 5 days. enoxaparin No [id number] 40mg inject 0.4 Univers 40 mg/0.4 - 03-05 mL under ity o f mL 00:00: 05:59 the skin [place] injection 00 :00 in the [facility] morning Branch for 5 days. dofetilide 2022- No [id number] 250ug Take 1 Univers 250 mcg 06-11 capsule by ity o f capsule 00:00: 05:59 mouth [place] 00 :00 every 12 [facility]) Branch hours for 2 days. warfarin 2 2022- No [id number] 2mg Take 1 Univers mg tablet 06-11 tablet by ity of 00:00: 05:59 mouth [place] 00 :00 every Medical evening Branch for 2 days. dofetilide 2022- No [id number] 250ug Take 1 Univers 250 mcg 06-11 capsule by ity o f capsule 00:00: 05:59 mouth [place] 00 :00 every 12 [facility]) Branch hours for 2 days. warfarin 2 2022- No [id number] 2mg Take 1 Univers mg tablet 06-11- tablet by ity of 00:00: 05:59 mouth [place] 00 :00 every Medical evening Branch for 2 days. warfarin 2 2022- No [id number] 2mg Take 1 Univers mg tablet 06-11- tablet by ity of 00:00: 05:59 mouth [place] 00 :00 every Medical evening Branch for 2 days. warfarin 2 2022- No [id number] 2mg Take 1 Univers mg tablet 06-11 tablet by ity of 00:00: 05:59 mouth [place] 00 :00 every Medical evening Branch for 2 days. warfarin 2 No [id number] 2mg Take 1 Univers mg tablet 06-11 tablet by ity of 00:00: 05:59 mouth [place] 00 :00 every Medical evening Branch for 2 days. warfarin 2 No [id number] 2mg Take 1 Univers mg tablet 06-11 tablet by ity of 00:00: 05:59 mouth [place] 00 :00 every Medical evening Branch for 2 days. warfarin 2 No [id number] 2mg Take 1 Univers mg tablet 06-11 tablet by ity of 00:00: 05:59 mouth [place] 00 :00 every Medical evening Branch for 2 days. enoxaparin No [id number] 40mg inject 0.4 Univers 40 mg/0.4 06-11 mL under ity o f mL 00:00: 05:59 the skin [place] injection 00 :00 in the Medical morning Branch for 2 days. enoxaparin No [id number] 40mg inject 0.4 Univers 40 mg/0.4 06-11- mL under ity o f mL 00:00: 05:59 the skin [place] injection 00 :00 in the Medical morning Branch for 2 days. dofetilide No [id number] 250ug Take 1 Univers 250 mcg 06-11 capsule by ity o f capsule 00:00: 05:59 mouth [place] 00 :00 every 12 [facility] ([facility]) Branch hours for 2 days. enoxaparin No [id number] 40mg inject 0.4 Univers 40 mg/0.4 06-11 mL under ity o f mL 00:00: 05:59 the skin [place] injection 00 :00 in the Medical morning Branch for 2 days. dofetilide No [id number] 250ug Take 1 Univers 250 mcg 06-11 capsule by ity o f capsule 00:00: 05:59 mouth [place] 00 :00 every 12 [facility] ([facility]) Branch hours for 2 days. enoxaparin No [id number] 40mg inject 0.4 Univers 40 mg/0.4 06-11 mL under ity o f mL 00:00: 05:59 the skin [place] injection 00 :00 in the [facility] Branch for 2 days. dofetilide No [id number] 250ug Take 1 Univers 250 mcg 06-11 capsule by ity o f capsule 00:00: 05:59 mouth [place] 00 :00 every 12 [facility] ([facility]) Branch hours for 2 days. enoxaparin No [id number] 40mg inject 0.4 Univers 40 mg/0.4 06-11 mL under ity o f mL 00:00: 05:59 the skin [place] injection 00 :00 in the [facility] Branch for 2 days. dofetilide No [id number] 250ug Take 1 Univers 250 mcg 06-11 capsule by ity o f capsule 00:00: 05:59 mouth [place] 00 :00 every 12 [facility] ([facility]) Branch hours for 2 days. enoxaparin No [id number] 40mg inject 0.4 Univers 40 mg/0.4 06-11 mL under ity o f mL 00:00: 05:59 the skin [place] injection 00 :00 in the [facility] Branch for 2 days. dofetilide No [id number] 250ug Take 1 Univers 250 mcg 06-11 capsule by ity o f capsule 00:00: 05:59 mouth [place] 00 :00 every 12 [facility] ([facility]) Branch hours for 2 days. enoxaparin No [id number] 40mg inject 0.4 Univers 40 mg/0.4 06-11 mL under ity o f mL 00:00: 05:59 the skin [place] injection 00 :00 in the [facility] Branch for 2 days. warfarin Yes 2mg 2 mg, Univers (COUMADIN) 2- Oral, ity of tablet 2 mg 23:00: [...] :00 dose, On Medi tyrone 800 mg [facility] 06/10/22 at 0815, Routine magnesium 2022-0 2022- No 2g 2 g, IV Univ ers sulfate in 06-10 Piggyback, it y of water 2 09:45: 10:41 Administer [place] gram/50 mL 00 :00 over 60 Medica l (4 %) Minutes, Branch infusion 2 ONCE, 1 g dose, On [place] 06/10/22 at 0345, Routine methocarbam 0 Yes 500mg 500 mg, [place] oL 06-10 Oral, BID, ity of (ROBAXIN) 02:00: First dose [place] tablet 500 00 on [facility] Medical mg 06/09/22 at Branch 2000, Until Discontinu ed, Routine gabapentin 2022-0 Yes 200mg 200 mg, Uni vers (NEURONTIN) 2-25 Oral, TID, it y of capsule 200 20:00: First dose [place] mg 00 on [facility] Medical 06/09/22 at Branch 1400, Until Discontinu ed, Routine acetaminoph 2022-0 Yes 500mg 500 mg, [place] en 2-25 Oral, TID, ity of (TYLENOL) 20:00: First dose [place] tablet 500 00 (after Medical mg last Branch modificati on) on [facility] 06/09/22 at 1400, Until Discontinu ed, Routine heparin 2022-0 2022- No 80U/kg 3,560 Univer s 1000 2-25 02-25 Units (80 ity of unit/mL 16:30: 17:49 Units/kg [place] injection 00 :00 ?44.5 kg), Medi tyrone Soln 3,560 IV Push, Branc h Units ONCE, 1 dose, On [facility] 06/09/22 at 1030, Routine heparin 2022-0 Yes [...] INITIAL INFUSION RATE.&nbsp ; _ &nb sp;FOR [facility], AND [facility] ONLY &nbs p; - aPTT < 35: [...] , Starting [place] mL vial) 12 on [facility] 06/09/22 at Branch 1027, Until Discontinu ed, Routine
Dosing based on aPTT testing parameters (refer to continuous heparin drip order)
magnesium 2022-0 2022- No 400mg 400 mg, Uni vers oxide 06-09 Oral, ity of (MAG-OX 15:00: 15:14 ONCE, 1 [place] 400) tablet 00 :00 dose, On Medi tyrnoe 400 mg Sat Branch 06/09/22 at 0900, Routine FENTanyl PF 2022-0 Yes 25ug 25 mcg, Uni vers (SUBLIMAZE [...] 06/07/22 at 2000, Until Discontinu ed, Routine
pricing/signage team member approving Restricted medication : MARIIA [...] [place] mg 00 First dose Medical on [facility] 06/07/22 at 0900, Until Discontinu ed, Routine furosemide 2022- No 40mg 40 mg, Univ ers (LASIX) 06-07 Oral, ity of tablet 40 15:00: 20:50 DAILY, [place] mg 00 :38 First dose Medical on [facility] Branch 06/07/22 at 0900, Until Discontinu ed, Routine aspirin 2022- No 81mg 81 mg, Univers chewable 06-07 Oral, ity of tablet 81 15:00: 15:25 DAILY, [place] mg 00 :24 First dose Medical on [facility] 06/07/22 at 0900, Until Discontinu ed, Routine HYDROcodone Yes 1{tbl} 1 tablet, Univers -acetaminop 06-07 Oral, ity of hen (NORCO) 14:58: Q6HPRN, [place] as 10-325 mg 30 Starting Medica l tablet 1 on [facility] tablet 06/07/22 at 0858, Until Discontinu ed, Routine, Pain (scale 7-10), Pain (scale 4-6) gabapentin 2022- No 300mg 300 mg, [place] (NEURONTIN) 06-07 Oral, ity of capsule 300 07:45: 07:14 ONCE, 1 [place] mg 00 :00 dose, On [facility] Branch 06/07/22 at 0145, Routine KCL 2022- No 20meq 20 mEq, Univers (KLOR-CON 06-07 Oral, ity of M20) tablet 05:00: 06:48 ONCE, 1 [place] 20 mEq 00 :00 dose, On [facility] Branch 06/06/22 at 2315, Routine magnesium 2022- [...] 06/06/22 at 2000, Until Discontinu ed, Routine
pricing/signage team member approving Restricted medication : MARIIA [...] QHSPRN, [place] 38 Starting Medical on 06/06/23 at 1813, Until Discontinu ed, Routine, Insomnia [...] 00 :00 by mouth Center daily. furosemide 2022-2023- No 20mg QD Take [address] [facility] [...] Medi tyrone MG tablet 11 Center warfarin 2022-0 Yes 1mg QD Take 1 [...] tablet mouth 2 (two) times daily. metoprolol 2022-2022- No 1 tablet [place] tartrate 25 [...] 13:52: daily. Medi tyrone MG tablet 50 [facility] warfarin 2022-0 Yes 1mg QD Take [address] [facility] (COUMADIN, 2-04 by mouth [facility]) 1 13:52: daily. Medi tyrone MG tablet 50 [facility] warfarin 2022-0 Yes 1mg QD Take [address] [facility] (COUMADIN, 2-04 by mouth [facility]) 1 13:52: daily. Medi tyrone MG tablet 50 [facility] alendronate 0 Yes Univer s 70 mg 1-26 ity of tablet 00:00: [place] [address] Medical Branch zolpidem 10 0 Yes 1 tablet [place] mg tablet 1-26 at bedtime ity of 00:00: as needed [address] Branch alendronate 0 Yes Univer s 70 mg 1-26 ity of tablet 00:00: [address] Branch zolpidem 10 0 Yes 1 tablet [place] mg tablet 1-26 at bedtime ity of 00:00: as needed [address] Branch alendronate 0 Yes Univer s 70 mg 1-26 ity of tablet 00:00: [address] zolpidem 10 0 Yes 1 tablet [place] mg tablet 1-26 at bedtime ity of 00:00: as needed [address] Branch alendronate 2022-0 Yes Univer s 70 mg 1-26 ity of tablet 00:00: [address] zolpidem 10 2022-0 Yes 1 tablet [place] mg tablet 1-26 at bedtime ity of 00:00: as needed [address] Branch alendronate 2022-0 Yes Univer s 70 mg 1-26 ity of tablet 00:00: [place] [address] Medical [place] zolpidem 10 2022-0 Yes 1 tablet [place] mg tablet 1-26 at bedtime ity of 00:00: as needed [address] Branch alendronate 2022-0 Yes Univer s 70 mg 1-26 ity of tablet 00:00: [address] zolpidem 10 2022-0 Yes 1 tablet [place] mg tablet 1-26 at bedtime ity of 00:00: as needed [place] 00 Medical Branch alendronate 2022-0 Yes Univer s [...] at bedtime ity of 00:00: as needed [place] [address] Medical Branch alendronate 2022-0 Yes Univer s 70 mg 1-26 ity of tablet 00:00: [place] [address] Medical Branch zolpidem 10 2022-0 Yes 1 tablet [place] mg tablet 1-26 at bedtime ity of 00:00: as needed [place] Medical Branch alendronate 2022-0 Yes Univer s 70 mg 1-26 ity of tablet 00:00: [place] Medical Branch zolpidem 10 2022-0 Yes 1 tablet Un ch[place] mg tablet 1-26 at bedtime ity of [...] 70 mg 1-26 ity of tablet 00:00: [place] [address] Medical Branch zolpidem 10 2022-0 Yes 1 tablet [place] mg tablet 1-26 at bedtime ity of 00:00: as needed [place] Medical Branch alendronate 2022-0 Yes Univer s 70 mg 1-26 ity of tablet 00:00: [place] [address] Medical Branch zolpidem 10 2022-0 Yes 1 tablet [place] mg tablet 1-26 at bedtime ity of 00:00: as needed [place] Medical Branch alendronate 2022-0 Yes Univer s 70 mg 1-26 ity of tablet 00:00: [place] [address] Medical Branch zolpidem 10 2022-0 Yes 1 tablet [place] mg tablet 1-26 at bedtime ity of 00:00: as needed [place] Medical Branch alendronate 2022-0 Yes Univer s 70 mg 1-26 ity of tablet 00:00: [place] [address] Medical Branch zolpidem 10 2022-0 Yes 1 tablet [place] mg tablet 1-26 at bedtime ity of 00:00: as needed [place] Medical Branch alendronate 2022-0 Yes Univer s 70 mg 1-26 ity of tablet 00:00: [place] [address] Medical Branch zolpidem 10 2022-0 Yes 1 tablet [place] mg tablet 1-26 at bedtime ity of 00:00: as needed [place] Medical Branch alendronate 2022-0 Yes Univer s 70 mg 1-26 ity of tablet 00:00: [place] [address] Medical Branch zolpidem 10 2022-0 Yes 1 [...] 70 mg 1-26 ity of tablet 00:00: [place] [address] Medical Branch zolpidem 10 2022-0 Yes 1 tablet [place] mg tablet 1-26 at bedtime ity of 00:00: as needed [place] Medical Branch alendronate 2022-0 Yes Univer s 70 mg 1-26 ity of tablet 00:00: [place] [address] Medical Branch zolpidem 10 2022-0 Yes 1 tablet [place] mg tablet 1-26 at bedtime ity of 00:00: as needed [place] Medical Branch alendronate 2022-0 Yes Univer s 70 mg 1-26 ity of tablet 00:00: [place] [address] Medical Branch zolpidem 10 2022-0 Yes 1 tablet [place] mg tablet 1-26 at bedtime ity of 00:00: as needed [place] Medical Branch alendronate 2022-0 Yes Univer s 70 mg 1-26 ity of tablet 00:00: [place] [address] Medical Branch zolpidem 10 2022-0 Yes 1 tablet [place] mg tablet 1-26 at bedtime ity of 00:00: as needed [place] [facility] Branch alendronate 2022-0 Yes Univer s 70 mg 1-26 ity of tablet 00:00: [place] [address] Medical Branch zolpidem 10 2022-0 Yes 1 [...] 00:00: as needed [place] [facility] Branch alendronate Yes Univer s 70 mg 1-26 ity of tablet 00:00: [place] Medical Branch zolpidem 10 0 Yes 1 tablet [place] mg tablet 1-26 at bedtime ity of 00:00: as needed [place] Medical Branch alendronate Yes Univer s 70 mg 1-26 ity of tablet 00:00: [place] [facility] Branch zolpidem 10 0 Yes 1 tablet [place] mg tablet 1-26 at bedtime ity of 00:00: as needed [place] [facility] Branch metoprolol 2022- No [id number] 25mg Take 1 Univers succinate 1-26 -27 tablet by ity of XL (TOPROL 00:00: 04:59 mouth in [place] XL) 25 mg 00 :00 the Medical 24 hr morning Branch tablet for 90 days. metoprolol 2022- No [id number] 25mg Take 1 Univers succinate 1-26 -27 tablet by ity of XL (TOPROL 00:00: 04:59 mouth in [place] XL) 25 mg 00 :00 the Medical 24 hr morning Branch tablet for 90 days. metoprolol 2022- No [id number] 25mg Take 1 Univers succinate 1-26 -27 tablet by ity of XL (TOPROL 00:00: 04:59 mouth in [place] XL) 25 mg 00 :00 the Medical 24 hr morning Branch tablet for 90 days. metoprolol 2022- No [id number] 25mg Take 1 Univers succinate 1-08 08-27 tablet by ity of XL (TOPROL 00:00: 04:59 mouth in [place] XL) 25 mg 00 :00 the Medical 24 hr morning Branch tablet for 90 days. metoprolol 2022- No [id number] 25mg Take 1 Univers succinate 1-26 -27 tablet by ity of XL (TOPROL 00:00: 04:59 mouth in [place] XL) 25 mg 00 :00 the Medical 24 hr morning Branch tablet for 90 days. metoprolol 2022- No [id number] 25mg Take 1 Univers succinate 1-26 -27 tablet by ity of XL (TOPROL 00:00: 04:59 mouth in [place] XL) 25 mg 00 :00 the Medical 24 hr morning Branch tablet for 90 days. metoprolol 2022- No [id number] 25mg Take 1 Univers succinate 1-10 06-27 tablet by ity of XL (TOPROL 00:00: 00:00 mouth in [place] XL) 25 mg 00 :00 the Medical 24 hr morning Branch tablet for 90 days. metoprolol 2022- No [id number] 25mg Take 1 Univers succinate 1-10 06-27 tablet by ity of XL (TOPROL 00:00: 00:00 mouth in [place] XL) 25 mg 00 :00 the Medical 24 hr morning Branch tablet for 90 days. metoprolol 2022- No [id number] 25mg Take 1 Univers succinate 1-10 06-27 tablet by ity of XL (TOPROL 00:00: 00:00 mouth in [place] XL) 25 mg 00 :00 the Medical 24 hr morning Branch tablet for 90 days. metoprolol 2022-0 2022- No [id number] 25mg Take 1 Univers succinate 1-26 -27 tablet by ity of XL (TOPROL 00:00: 00:00 mouth in [place] XL) 25 mg 00 :00 the Medical 24 hr morning Branch tablet for 90 days. metoprolol 2022- No [id number] 25mg Take 1 Univers succinate 1-26 -27 tablet by ity of XL (TOPROL 00:00: 00:00 mouth in [place] XL) 25 mg 00 :00 the Medical 24 hr morning Branch tablet for 90 days. Diclofenac Yes Univers Sodium 1 % 1-25 ity of gel 00:00: [place] 00 Medical Branch Diclofenac 3-0 3- No Univer s Sodium 1 % 1-25 -27 ity of gel 00:00: 00:00 [place] 00 :00 Medical Branch Diclofenac 2022-0 3- No Univer s Sodium 1 % 1-25 -27 ity of gel 00:00: 00:00 [place] 00 :00 Medical Branch Diclofenac 2022-0 2023- No Univer s Sodium 1 % 1-25 -27 ity of gel 00:00: 00:00 [place] 00 :00 Medical Branch Diclofenac 2022-0 2023- No Univer s Sodium 1 % 1-25 -27 ity of gel 00:00: 00:00 [place] 00 :00 Medical Branch Diclofenac 2022-0 2022- No Univer s Sodium 1 % 1-25 -27 ity of gel 00:00: 00:00 [place] 00 :00 Medical Branch ezetimibe 2021-04 Yes 10mg Take 1 Univer s (ZETIA) 10 2-19 tablet by ity of mg tablet 00:00: mouth [place] 00 the Medical morning. Branch metoprolol 2021-04 Yes [id number] 25mg Take 1 U nivers tartrate 25 2-19 tablet by ity of mg tablet 00:00: mouth [place] 00 the Medical morning Branch and 1 tablet in the evening. ezetimibe 2021-04 Yes 10mg Take 1 Univer s (ZETIA) 10 2-19 tablet by ity of mg tablet 00:00: mouth [place] 00 the Medical morning. Branch metoprolol 2021-04 Yes [id number] 25mg Take 1 U nivers tartrate 25 2-19 tablet by ity of mg tablet 00:00: mouth [place] 00 the Medical morning Branch and 1 tablet in the evening. ezetimibe 2021-04 Yes 10mg Take 1 Univer s (ZETIA) 10 2-19 tablet by ity of mg tablet 00:00: mouth [place] 00 the Medical morning. Branch metoprolol 2021-04 Yes [id number] 25mg Take 1 U nivers tartrate 25 2-19 tablet by ity of mg tablet 00:00: mouth [place] 00 the Medical morning Branch and 1 tablet in the evening. ezetimibe 2021-04 Yes 10mg Take 1 Univer s (ZETIA) 10 2-19 tablet by ity of mg tablet 00:00: mouth [place] 00 the Medical morning. Branch metoprolol 2021-04 Yes [id number] 25mg Take 1 U nivers tartrate 25 2-19 tablet by ity of mg tablet 00:00: mouth [place] 00 the Medical morning Branch and 1 tablet in the evening. ezetimibe 2021-04 Yes 10mg Take 1 Univer s (ZETIA) 10 2-19 tablet by ity of mg tablet 00:00: mouth [place] 00 the Medical morning. Branch metoprolol 2021-04 Yes [id number] 25mg Take 1 U nivers tartrate 25 2-19 tablet by ity of mg tablet 00:00: mouth [place] 00 the Medical morning Branch and 1 tablet in the evening. ezetimibe 2021-04 Yes 10mg Take 1 Univer s (ZETIA) 10 2-19 tablet by ity of mg tablet 00:00: mouth [place] 00 the Medical morning. Branch metoprolol 2021-04 Yes [id number] 25mg Take 1 U nivers tartrate 25 2-19 tablet by ity of mg tablet 00:00: mouth [place] 00 the Medical morning Branch and 1 tablet in the evening. ezetimibe 2021-04 Yes 10mg Take 1 Univer s (ZETIA) 10 2-19 tablet by ity of mg tablet 00:00: mouth [place] 00 the Medical morning. Branch metoprolol 2021-04 Yes [id number] 25mg Take 1 U nivers tartrate 25 [...] 10mg Take 1 Univer s (ZETIA) 10 -19 tablet by ity of mg tablet 00:00: mouth [place] 00 the Medical morning. Branch ezetimibe 2021-04- No 10mg Take 1 Unive rs (ZETIA) 10 2-19 04-18 tablet by ity of mg tablet 00:00: 00:00 mouth in [place] 00 :00 the Medical morning. Branch metoprolol 2021-04- No [id number] 25mg Take 1 Univers tartrate 25 -03 05-26 tablet by it y of mg tablet 00:00: 00:00 mouth in [place] 00 :00 the Medical morning Branch and 1 tablet in the evening. metoprolol 2021-04- No [id number] 25mg Take 1 Univers tartrate 25 -03 05- tablet by it y of mg tablet 00:00: 00:00 mouth in [place] 00 :00 the Medical morning Branch and 1 tablet in the evening. warfarin 2021-04 Yes [id number] 1mg Take 1 Univers mg tablet 2-01 tablet by ity o f 00:00: mouth [place] 00 every Medical evening. Branch Alternate take 1mg x3 days, then 2mg x 4 days warfarin 2021-04 Yes [id number] 1mg Take 1 Univers mg tablet 2-01 tablet by ity o f 00:00: mouth [place] 00 every Medical evening. Branch Alternate take 1mg x3 days, then 2mg x 4 days dofetilide 2021-04 Yes [id number] 125ug Take 1 Univers 125 mcg 2-01 capsule by ity of capsule 00:00: mouth [place] 00 every 12 Medical (twelve) Branch hours. warfarin 2021-04 Yes [id number] 1mg Take 1 Univers mg tablet 2-01 tablet by ity o f 00:00: mouth [place] 00 every Medical evening. Branch Alternate take 1mg x3 days, then 2mg x 4 days dofetilide 2021-04 Yes [id number] 125ug Take 1 Univers 125 mcg 2-01 capsule by ity of capsule 00:00: mouth [place] 00 every 12 Medical (twelve) Branch hours. warfarin 2021-04 Yes [id number] 1mg Take 1 Univers mg tablet 2-01 tablet by ity o f 00:00: mouth [place] 00 every Medical evening. Branch Alternate take 1mg x3 days, then 2mg x 4 days dofetilide 2021-04 Yes [id number] 125ug Take 1 Univers 125 mcg 2-01 capsule by ity of capsule 00:00: mouth [place] 00 every 12 Medical (twelve) Branch hours. warfarin 2021-04 Yes [id number] 1mg Take 1 Univers mg tablet 2-01 tablet by ity o f 00:00: mouth [place] 00 every Medical evening. Branch Alternate take 1mg x3 days, then 2mg x 4 days dofetilide 2021-04 Yes [id number] 125ug Take 1 Univers 125 mcg 2-01 capsule by ity of capsule 00:00: mouth [place] 00 every 12 Medical (twelve) Branch hours. warfarin 2021-04 Yes [id number] 1mg Take 1 Univers mg tablet 2-01 tablet by ity o f 00:00: mouth [place] 00 every Medical evening. Branch Alternate take 1mg x3 days, then 2mg x 4 days dofetilide 2021-04 Yes [id number] 125ug Take 1 Univers 125 mcg 2-01 capsule by ity of capsule 00:00: mouth [place] 00 every 12 Medical (twelve) Branch hours. warfarin 2021-04 Yes [id number] 1mg Take 1 Univers mg tablet 2-01 tablet by ity o f 00:00: mouth [place] 00 every Medical evening. Branch Alternate take 1mg x3 days, then 2mg x 4 days dofetilide 2021-04 Yes [id number] 125ug Take 1 Univers 125 mcg 2-01 capsule by ity of capsule 00:00: mouth [place] 00 every 12 Medical (twelve) Branch hours. warfarin 2021-04 Yes [id number] 1mg Take 1 Univers mg tablet 2-01 tablet by ity o f 00:00: mouth [place] 00 every Medical evening. Branch Alternate take 1mg x3 days, then 2mg x 4 days dofetilide 2021-04 Yes [id number] 125ug Take 1 Univers 125 mcg 2-01 capsule by ity of capsule 00:00: mouth [place] 00 every 12 Medical (twelve) Branch hours. warfarin 2021-04 Yes [id number] 1mg Take 1 Univers mg tablet 2-01 tablet by ity o f 00:00: mouth [place] 00 every Medical evening. Branch Alternate take 1mg x3 days, then 2mg x 4 days dofetilide 2021-04 Yes [id number] 125ug Take 1 Univers 125 mcg 2-01 capsule by ity of capsule 00:00: mouth [place] 00 every 12 Medical (twelve) Branch hours. warfarin 2021-04 Yes [id number] 1mg Take 1 Univers mg tablet 2-01 tablet by ity o f 00:00: mouth [place] 00 every Medical evening. Branch Alternate take 1mg x3 days, then 2mg x 4 days dofetilide 2021-04 Yes [id number] 125ug Take 1 Univers 125 mcg 2-01 capsule by ity of capsule 00:00: mouth [place] 00 every 12 Medical (twelve) Branch hours. warfarin 2021-04 Yes [id number] 1mg Take 1 Univers mg tablet 2-01 tablet by ity o f 00:00: mouth [place] 00 every Medical evening. Branch Alternate take 1mg x3 days, then 2mg x 4 days dofetilide 2021-04 Yes [id number] 125ug Take 1 Univers 125 mcg 2-01 capsule by ity of capsule 00:00: mouth [place] 00 every 12 Medical (twelve) Branch hours. warfarin 2021-04 Yes [id number] 1mg Take 1 Univers mg tablet 2-01 tablet by ity o f 00:00: mouth [place] 00 every Medical evening. Branch Alternate take 1mg x3 days, then 2mg x 4 days dofetilide 2021-04 Yes [id number] 125ug Take 1 Univers 125 mcg 2-01 capsule by ity of capsule 00:00: mouth [place] 00 every 12 Medical (twelve) Branch hours. warfarin 2021-04 Yes [id number] 1mg Take 1 Univers mg tablet 2-01 tablet by ity o f 00:00: mouth [place] 00 every Medical evening. Branch Alternate take 1mg x3 days, then 2mg x 4 days dofetilide 2021-04 Yes [id number] 125ug Take 1 Univers 125 mcg 2-01 capsule by ity of capsule 00:00: mouth [place] 00 every 12 Medical (twelve) Branch hours. warfarin 2021-04 Yes [id number] 1mg Take 1 Univers mg tablet 2-01 tablet by ity o f 00:00: mouth [place] 00 every Medical evening. Branch Alternate take 1mg x3 days, then 2mg x 4 days dofetilide 2021-04 Yes [id number] 125ug Take 1 Univers 125 mcg 2-01 capsule by ity of capsule 00:00: mouth [place] 00 every 12 Medical (twelve) Branch hours. warfarin 2021-04 Yes [id number] 1mg Take 1 Univers mg tablet 2-01 tablet by ity o f 00:00: mouth [place] 00 every Medical evening. Branch Alternate take 1mg x3 days, then 2mg x 4 days dofetilide 2021-04 Yes [id number] 125ug Take 1 Univers 125 mcg 2-01 capsule by ity of capsule 00:00: mouth [place] 00 every 12 Medical (twelve) Branch hours. warfarin 2021-04 Yes [id number] 1mg Take 1 Univers mg tablet 2- tablet by [facility] 00:00: mouth [place] 00 every Medical evening. Branch Alternate take 1mg x3 days, then 2mg x 4 days dofetilide 2021-04 Yes [id number] 125ug Take 1 [facility] 125 mcg 2-01 capsule by [facility] capsule 00:00: mouth [place] 00 every 12 Medical (twelve) Branch hours. warfarin 2021-04- No [id number] 1mg Take 1 [facility] mg tablet 2-04 16- tablet by [facility] 00:00: 00:00 mouth [place] 00 :00 every Medical evening. Branch Alternate take 1mg x3 days, then 2mg x 4 days dofetilide 2021-04- No [id number] 125ug Take 1 [facility] 125 mcg 2-06-11 capsule by [facility] capsule 00:00: 00:00 mouth [place] 00 :00 every 12 Medical (twelve) Branch hours. warfarin 2021-04- No [id number] 1mg Take 1 [facility] mg tablet 2-04 16- tablet by [facility] 00:00: 00:00 mouth [place] 00 :00 every Medical evening. Branch Alternate take 1mg x3 days, then 2mg x 4 days dofetilide 2021-04- No [id number] 125ug Take 1 [facility] 125 mcg 2-04 16- capsule by [facility] capsule 00:00: 00:00 mouth [place] 00 :00 every 12 Medical (twelve) Branch hours. warfarin 2021-04- No [id number] 1mg Take 1 [facility] mg tablet 2-04 16-27 tablet by [facility] of 00:00: 00:00 mouth [place] 00 :00 every Medical evening. Branch Alternate take 1mg x3 days, then 2mg x 4 days dofetilide 2021-04- No [id number] 125ug Take 1 [facility] 125 mcg 05-16 capsule by [facility] capsule 00:00: 00:00 mouth [place] 00 :00 every 12 Medical (twelve) Branch hours. warfarin 2021-04- No [id number] 1mg Take 1 [facility] mg tablet 05-16 tablet by [facility] of 00:00: 00:00 mouth [place] 00 :00 every Medical evening. Branch Alternate take 1mg x3 days, then 2mg x 4 days dofetilide 2021-04- No [id number] 125ug Take 1 [facility] 125 mcg 05-16 capsule by [facility] capsule 00:00: 00:00 mouth [place] 00 :00 every 12 Medical (twelve) Branch hours. warfarin 2021-04- No [id number] 1mg Take 1 [facility] mg tablet 05-16 tablet by [facility] of 00:00: 00:00 mouth [place] 00 :00 every Medical evening. Branch Alternate take 1mg x3 days, then 2mg x 4 days dofetilide 2021-04- No [id number] 125ug Take 1 [facility] 125 mcg 05-16 capsule by [facility] capsule 00:00: 00:00 mouth [place] 00 :00 every 12 Medical (twelve) Branch hours. warfarin 2021-04 Yes [id number] 1mg Take 1 [facility] mg tablet 1-01 tablet by [facility] f 00:00: mouth [place] 00 every Medical evening. Branch Alternate take 1mg x4 days, then 2mg x 3 days warfarin 2021-04 Yes [id number] 1mg Take 1 [facility] mg tablet 1-01 tablet by [facility] f 00:00: mouth [place] 00 every Medical evening. Branch Alternate take 1mg x4 days, then 2mg x 3 days warfarin 2021-04 Yes [id number] 1mg Take 1 [facility] mg tablet 1-01 tablet by [facility] f 00:00: mouth [place] 00 every Medical evening. Branch Alternate take 1mg x4 days, then 2mg x 3 days warfarin 2021-04 Yes [id number] 1mg Take 1 [facility] mg tablet 1-01 tablet by [facility] f 00:00: mouth [place] 00 every Medical evening. Branch Alternate take 1mg x4 days, then 2mg x 3 days warfarin 2021-04 Yes [id number] 1mg Take 1 [facility] mg tablet 1-01 tablet by [facility] f 00:00: mouth [place] 00 every Medical evening. Branch Alternate take 1mg x4 days, then 2mg x 3 days warfarin 2021-04 Yes [id number] 1mg Take 1 [facility] mg tablet 1- tablet by [facility] 00:00: mouth [place] 00 every Medical evening. Branch Alternate take 1mg x4 days, then 2mg x 3 days warfarin 2021-04 Yes [id number] 1mg Take 1 [facility] mg tablet 1- tablet by [facility] f 00:00: mouth [place] 00 every Medical evening. Branch Alternate take 1mg x4 days, then 2mg x 3 days warfarin 2021-04 Yes [id number] 1mg Take 1 [facility] mg tablet 1- tablet by [facility] 00:00: mouth [place] 00 every Medical evening. Branch Alternate take 1mg x4 days, then 2mg x 3 days warfarin 2021-04 Yes [id number] 1mg Take 1 [facility] mg tablet 1- tablet by [facility] 00:00: mouth [place] 00 every Medical evening. Branch Alternate take 1mg x4 days, then 2mg x 3 days warfarin 2021-04 Yes [id number] 1mg Take 1 [facility] mg tablet 1- tablet by [facility] 00:00: mouth [place] 00 every Medical evening. Branch Alternate take 1mg x4 days, then 2mg x 3 days warfarin 2021-04 Yes [id number] 1mg Take 1 [facility] mg tablet 1- tablet by [facility] 00:00: mouth [place] 00 every Medical evening. Branch Alternate take 1mg x4 days, then 2mg x 3 days warfarin 2021-04- [id number] 1mg Take 1 [facility] mg tablet 1- 12- tablet by [facility] 00:00: 00:00 mouth [place] 00 :00 every Medical evening. Branch Alternate take 1mg x4 days, then 2mg x 3 days warfarin 2021-04 Yes [id number] 1mg Take 1 [facility] mg tablet 0-17 tablet by [facility] f 00:00: mouth [place] 00 every Medical evening. Branch Alternate take 1mg x4 days, then 2mg x 3 days warfarin 2021-04- No [id number] 1mg Take 1 [facility] mg tablet 0-17 [...] 00 the Medical morning. Branch ezetimibe 2021-0 2021- No 10mg Take 1 [facility] (ZETIA) 10 9- 12-19 tablet by [facility] mg tablet 00:00: 00:00 mouth [place] 00 :00 the Medical morning. Branch warfarin Yes [id number] 1mg Take 1 [facility] mg tablet 8-24 tablet by [facility] f 00:00: mouth [place] 00 every Medical evening. Branch Alternate take 1mg x2days, then 2mg x 1 day warfarin 0 Yes [id number] 1mg Take 1 [facility] mg tablet 8-24 tablet by [facility] f 00:00: mouth [place] 00 every Medical evening. Branch Alternate take 1mg x2days, then 2mg x 1 day warfarin 1 0 Yes [id number] 1mg Take 1 [facility] mg tablet 8-24 tablet by [facility] f 00:00: mouth [place] 00 every Medical evening. Branch Alternate take 1mg x2days, then 2mg x 1 day warfarin 1 0 Yes [id number] 1mg Take 1 [facility] mg tablet 8-24 tablet by [facility] f 00:00: mouth [place] 00 every Medical evening. Branch Alternate take 1mg x2days, then 2mg x 1 day warfarin 1 0 Yes [id number] 1mg Take 1 [facility] mg tablet 8-24 tablet by [facility] f 00:00: mouth [place] 00 every Medical evening. Branch Alternate take 1mg x2days, then 2mg x 1 day warfarin 1 2021-0 Yes [id number] 1mg Take 1 [facility] mg tablet 8-24 tablet by [facility] f 00:00: mouth [place] 00 every Medical evening. Branch Alternate take 1mg x2days, then 2mg x 1 day warfarin 1 Yes [id number] 1mg Take 1 [facility] mg tablet 8-24 tablet by [facility] f 00:00: mouth [place] 00 every Medical evening. Branch Alternate take 1mg x2days, then 2mg x 1 day warfarin 1 Yes [id number] 1mg Take 1 [facility] mg tablet 8-24 tablet by [facility] f 00:00: mouth [place] 00 every Medical evening. Branch Alternate take 1mg x2days, then 2mg x 1 day warfarin 1 Yes [id number] 1mg Take 1 [facility] mg tablet 8-24 tablet by [facility] f 00:00: mouth [place] 00 every Medical evening. Branch Alternate take 1mg x2days, then 2mg x 1 day warfarin 1 Yes [id number] 1mg Take 1 [facility] mg tablet 8-24 tablet by [facility] f 00:00: mouth [place] 00 every Medical evening. Branch Alternate take 1mg x2days, then 2mg x 1 day warfarin Yes [id number] 1mg Take 1 [facility] mg tablet 8-24 tablet by [facility] f 00:00: mouth [place] 00 every Medical evening. Branch Alternate take 1mg x2days, then 2mg x 1 day warfarin 1 Yes [id number] 1mg Take 1 [facility] mg tablet 8-24 tablet by [facility] f 00:00: mouth [place] 00 every Medical evening. Branch Alternate take 1mg x2days, then 2mg x 1 day warfarin 1 Yes [id number] 1mg Take 1 [facility] mg tablet 8-24 tablet by [facility] f 00:00: mouth [place] 00 every Medical evening. Branch Alternate take 1mg x2days, then 2mg x 1 day warfarin 1 2021- No [id number] 1mg Take 1 [facility] mg tablet 8-24 10-17 tablet by [facility] 00:00: 00:00 mouth [place] 00 :00 every Medical evening. Branch Alternate take 1mg x2days, then 2mg x 1 day warfarin 1 2- No [id number] 2mg Take 2 [facility] mg tablet 8-23 08-24 tablets by [facility] 00:00: 00:00 mouth [place] 00 :00 every Medical evening. [place] negronide 2021- No [id number] 125ug Take 1 [facility] 125 mcg 8-19 08-27 capsule by [facility] capsule 00:00: 04:59 mouth [place] 00 :00 every 12 Medical (twelve) Branch hours for 7 days. dofetilide 2021- No [id number] 125ug Take 1 [facility] 125 mcg 8-19 08-27 capsule by [facility] capsule 00:00: 04:59 mouth [place] 00 :00 every 12 Medical (twelve) Branch hours for 7 days. dofetilide 2021- No [id number] 125ug Take 1 [facility] 125 mcg 8-17 11-16 capsule by [facility] capsule 00:00: 05:59 mouth [place] 00 :00 every 12 Medical (twelve) Branch hours for 90 days. dofetilide 2021- No [id number] 125ug Take 1 [facility] 125 mcg 8-17 11-16 capsule by [facility] capsule 00:00: 05:59 mouth [place] 00 :00 every 12 Medical (twelve) Branch hours for 90 days. dofetilide 2021- No [id number] 125ug Take 1 [facility] 125 mcg 8-17 11-16 capsule by [facility] capsule 00:00: 05:59 mouth [place] 00 :00 every 12 Medical (twelve) Branch hours for 90 days. dofetilide 2021- No [id number] 125ug Take 1 [facility] 125 mcg 8-17 11-16 capsule by [facility] capsule 00:00: 05:59 mouth [place] 00 :00 every 12 Medical (twelve) Branch hours for 90 days. dofetilide 2021- No [id number] 125ug Take 1 [facility] 125 mcg 8-17 11-16 capsule by [facility] capsule 00:00: 05:59 mouth [place] 00 :00 every 12 Medical (twelve) Branch hours for 90 days. dofetilide 2021- No [id number] 125ug Take 1 [facility] 125 mcg 8-17 11-16 capsule by [facility] capsule 00:00: 05:59 mouth [place] 00 :00 every 12 Medical (twelve) Branch hours for 90 days. dofetilide 2021- No [id number] 125ug Take 1 [facility] 125 mcg 8-17 11-16 capsule by [facility] capsule 00:00: 05:59 mouth [place] 00 :00 every 12 Medical (twelve) Branch hours for 90 days. dofetilide 2021- No [id number] 125ug Take 1 [facility] 125 mcg 8-17 11-16 capsule by [facility] capsule 00:00: 05:59 mouth [place] 00 :00 every 12 Medical (twelve) Branch hours for 90 days. dofetilide 2- No [id number] 125ug Take 1 [facility] 125 mcg 8-17 11-16 capsule by [facility] capsule 00:00: 05:59 mouth [place] 00 :00 every 12 Medical (twelve) Branch hours for 90 days. dofetilide 2021- No [id number] 125ug Take 1 [facility] 125 mcg 8-17 11-16 capsule by [facility] capsule 00:00: 05:59 mouth [place] 00 :00 every 12 Medical (twelve) Branch hours for 90 days. dofetilide 2- No [id number] 125ug Take 1 [facility] 125 mcg 8-17 11-16 capsule by [facility] f capsule 00:00: 05:59 mouth [place] 00 :00 every 12 Medical (twelve) Branch hours for 90 days. dofetilide 2021- No [id number] 125ug Take 1 [facility] 125 mcg 8-17 11-16 capsule by [facility] f capsule 00:00: 05:59 mouth [place] 00 :00 every 12 Medical (twelve) Branch hours for 90 days. dofetilide 2- No [id number] 125ug Take 1 [facility] 125 mcg 8-17 11-16 capsule by [facility] capsule 00:00: 05:59 mouth [place] 00 :00 every 12 Medical (twelve) Branch hours for 90 days. dofetilide 2021- No [id number] 125ug Take 1 [facility] 125 mcg 8-17 11-16 capsule by [facility] f capsule 00:00: 05:59 mouth [place] 00 :00 every 12 Medical (twelve) Branch hours for 90 days. dofetilide 2021- No [id number] 125ug Take 1 [facility] 125 mcg 8-17 11-16 capsule by [facility] f capsule 00:00: 05:59 mouth [place] 00 :00 every 12 Medical (twelve) Branch hours for 90 days. dofetilide 2021- No [id number] 125ug Take 1 [facility] 125 mcg 8-17 11-16 capsule by [facility] f capsule 00:00: 05:59 mouth [place] 00 :00 every 12 Medical (twelve) Branch hours for 90 days. dofetilide 2- No [id number] 125ug Take 1 [facility] 125 mcg 8-17 11-16 capsule by [facility] f capsule 00:00: 05:59 mouth [place] 00 :00 every 12 Medical (twelve) Branch hours for 90 days. dofetilide 2021- No [id number] 125ug Take 1 [facility] 125 mcg 8-17 11-16 capsule by [facility] capsule 00:00: 05:59 mouth [place] 00 :00 every 12 Medical (twelve) Branch hours for 90 days. dofetilide 2021- No [id number] 125ug Take 1 [facility] 125 mcg 8-17 11-16 capsule by [facility] f capsule 00:00: 05:59 mouth [place] 00 :00 every 12 Medical (twelve) Branch hours for 90 days. dofetilide 2021- No [id number] 125ug Take 1 [facility] 125 mcg 8-17 11-16 capsule by [facility] f capsule 00:00: 05:59 mouth [place] 00 :00 every 12 Medical (twelve) Branch hours for 90 days. atorvastati Yes 80mg Take 1 [facility] ers n 80 mg 7-12 tablet by [facility] tablet 00:00: mouth at [place] [address] bedtime. Medical Branch atorvastati 0 Yes 80mg Take 1 [facility] ers n 80 mg 7-12 tablet by [facility] of tablet 00:00: mouth at [place] [address] bedtime. Medical Branch atorvastati 0 Yes 80mg Take 1 [facility] ers n 80 mg 7-12 tablet by [facility] of tablet 00:00: mouth at [place] 00 bedtime. Medical Branch atorvastati 0 Yes 80mg Take 1 [facility] ers n 80 mg 7-12 tablet by [facility] of tablet 00:00: mouth at [place] [address] bedtime. Medical Branch atorvastati 0 Yes 80mg Take 1 [facility] ers n 80 mg 7-12 tablet by [facility] of tablet 00:00: mouth at [place] [address] bedtime. Medical Branch atorvastati 2022-0 Yes 80mg Take 1 [facility] ers n 80 mg 7-12 tablet by [facility] tablet 00:00: mouth at [place] [address] bedtime. Medical Branch atorvastati 2022-0 Yes 80mg Take 1 [facility] n 80 mg 7-12 tablet by [facility] of tablet 00:00: mouth at [place] [address] bedtime. Medical Branch atorvastati 2022-0 Yes 80mg Take 1 [facility] n 80 mg 7-12 tablet by [facility] of tablet 00:00: mouth at [place] bedtime. Medical Branch atorvastati 2022-0 Yes 80mg Take 1 [facility] ers n 80 mg 7-12 tablet by [facility] tablet 00:00: mouth at [place] [address] bedtime. Medical Branch atorvastati 2022-0 Yes 80mg Take 1 [facility] n 80 mg 7-12 tablet by [facility] of tablet 00:00: mouth at [place] [address] bedtime. Medical Branch atorvastati 2-0 Yes 80mg Take 1 [facility] n 80 mg 7-12 tablet by [facility] of tablet 00:00: mouth at [place] [address] bedtime. Medical Branch atorvastati 2-0 Yes 80mg Take 1 [facility] n 80 mg 7-12 tablet by [facility] of tablet 00:00: mouth at [place] [address] bedtime. Medical Branch atorvastati 2-0 Yes 80mg Take 1 [facility] n 80 mg 7-12 tablet by [facility] tablet 00:00: mouth at [place] [address] bedtime. Medical Branch atorvastati 2022-0 Yes 80mg Take 1 [facility] n 80 mg 7-12 tablet by [facility] of tablet 00:00: mouth at [place] [address] bedtime. Medical Branch atorvastati 2022-0 Yes 80mg Take 1 [facility] n 80 mg 7-12 tablet by [facility] of tablet 00:00: mouth at [place] [address] bedtime. Medical Branch atorvastati 2022-0 Yes 80mg Take 1 [facility] n 80 mg 7-12 tablet by [facility] of tablet 00:00: mouth at [place] [address] bedtime. Medical Branch atorvastati 2022-0 Yes 80mg Take 1 [facility] ers n 80 mg 7-12 tablet by [facility] of tablet 00:00: mouth at [place] [address] bedtime. Medical Branch atorvastati 2022-0 Yes 80mg Take 1 [facility] ers n 80 mg 7-12 tablet by [facility] of tablet 00:00: mouth at [place] [address] bedtime. Medical Branch atorvastati 2022-0 Yes 80mg Take 1 [facility] n 80 mg 7-12 tablet by [facility] of tablet 00:00: mouth at [place] [address] bedtime. Medical Branch atorvastati 2022-0 Yes 80mg Take 1 [facility] n 80 mg 7-12 tablet by [facility] of tablet 00:00: mouth at [place] [address] bedtime. Medical Branch atorvastati 2-0 Yes 80mg Take 1 [facility] n 80 mg 7-12 tablet by [facility] of tablet 00:00: mouth at [place] [address] bedtime. Medical Branch atorvastati 2-0 Yes 80mg Take 1 [facility] n 80 mg 7-12 tablet by [facility] of tablet 00:00: mouth at [place] [address] bedtime. Medical Branch atorvastati 2-0 Yes 80mg Take 1 [facility] n 80 mg 7-12 tablet by [facility] of tablet 00:00: mouth at [place] [address] bedtime. Medical Branch atorvastati 2-0 Yes 80mg Take 1 [facility] n 80 mg 7-12 tablet by [facility] of tablet 00:00: mouth at [place] [address] bedtime. Medical Branch atorvastati 2-0 Yes 80mg Take 1 [facility] n 80 mg 7-12 tablet by [facility] of tablet 00:00: mouth at [place] [address] bedtime. Medical Branch atorvastati 2-0 Yes 80mg Take 1 [facility] n 80 mg 7-12 tablet by [facility] of tablet 00:00: mouth at [place] [address] bedtime. Medical Branch atorvastati 2022-0 Yes 80mg Take 1 [facility] n 80 mg 7-12 tablet by [facility] of tablet 00:00: mouth at [place] [address] bedtime. Medical Branch atorvastati 2022-0 Yes 80mg Take 1 [facility] n 80 mg 7-12 tablet by [facility] of tablet 00:00: mouth at [place] [address] bedtime. Medical Branch atorvastati 2022-0 Yes 80mg Take 1 [facility] n 80 mg 7-12 tablet by [facility] of tablet 00:00: mouth at [place] [address] bedtime. Medical Branch atorvastati 2022-0 Yes 80mg Take 1 [facility] n 80 mg 7-12 tablet by [facility] of tablet 00:00: mouth at [place] [address] bedtime. Medical Branch atorvastati 2022-0 Yes 80mg Take 1 [facility] n 80 mg 7-12 tablet by [facility] of tablet 00:00: mouth at [place] [address] bedtime. Medical Branch atorvastati 2022-0 Yes 80mg Take 1 [facility] n 80 mg 7-12 tablet by [facility] of tablet 00:00: mouth at [place] [address] bedtime. Medical Branch atorvastati 2022-0 Yes 80mg Take 1 [facility] n 80 mg 7-12 tablet by [facility] of tablet 00:00: mouth at [place] bedtime. Medical Branch atorvastati 2022-0 Yes 80mg Take 1 [facility] n 80 mg 7-12 tablet by [facility] of tablet 00:00: mouth at [place] [address] bedtime. Medical Branch atorvastati 2022-0 Yes 80mg Take 1 [facility] n 80 mg 7-12 tablet by [facility] of tablet 00:00: mouth at [place] [address] bedtime. Medical Branch atorvastati 2-0 Yes 80mg Take 1 [facility] n 80 mg 7-12 tablet by [facility] of tablet 00:00: mouth at [place] [address] bedtime. Medical Branch atorvastati 2-0 Yes 80mg Take 1 [facility] n 80 mg 7-12 tablet by [facility] of tablet 00:00: mouth at [place] [address] bedtime. Medical Branch atorvastati 2-0 Yes 80mg Take 1 [facility] n 80 mg 7-12 tablet by [facility] of tablet 00:00: mouth at [place] [address] bedtime. Medical Branch atorvastati 2022-0 Yes 80mg Take 1 [facility] n 80 mg 7-12 tablet by [facility] of tablet 00:00: mouth at [place] [address] bedtime. Medical Branch atorvastati 2022-0 Yes 80mg Take 1 [facility] n 80 mg 7-12 tablet by [facility] of tablet 00:00: mouth at [place] [address] bedtime. Medical Branch atorvastati 2022-0 Yes 80mg Take 1 [facility] n 80 mg 7-12 tablet by [facility] of tablet 00:00: mouth at [place] [address] bedtime. Medical Branch atorvastati 2022-0 Yes 80mg Take 1 [facility] n 80 mg 7-12 tablet by [facility] of tablet 00:00: mouth at [place] [address] bedtime. Medical Branch atorvastati 2022-0 Yes 80mg Take 1 [facility] n 80 mg 7-12 tablet by [facility] of tablet 00:00: mouth at [place] [address] bedtime. Medical Branch atorvastati 2022-0 Yes 80mg Take 1 [facility] n 80 mg 7-12 tablet by [facility] of tablet 00:00: mouth at [place] [address] bedtime. Medical Branch atorvastati 2022-0 Yes 80mg Take 1 [facility] n 80 mg 7-12 tablet by [facility] of tablet 00:00: mouth at [place] [address] bedtime. Medical Branch atorvastati 2-0 Yes 80mg Take 1 [facility] n 80 mg 7-12 tablet by [facility] of tablet 00:00: mouth at [place] [address] bedtime. Medical Branch atorvastati 2-0 Yes 80mg Take 1 [facility] n 80 mg 7-12 tablet by [facility] of tablet 00:00: mouth at [place] [address] bedtime. Medical Branch atorvastati 2-0 Yes 80mg Take 1 [facility] n 80 mg 7-12 tablet by [facility] of tablet 00:00: mouth at [place] [address] bedtime. Medical Branch atorvastati 2-0 Yes 80mg Take 1 [facility] n 80 mg 7-12 tablet by [facility] of tablet 00:00: mouth at [place] [address] bedtime. Medical Branch atorvastati 2-0 Yes 80mg Take 1 [facility] n 80 mg 7-12 tablet by [facility] of tablet 00:00: mouth at [place] [address] bedtime. Medical Branch atorvastati 2-0 Yes 80mg Take 1 [facility] n 80 mg 7-12 tablet by [facility] of tablet 00:00: mouth at [place] [address] bedtime. Medical Branch atorvastati 2022-0 Yes 80mg Take 1 [facility] n 80 mg 7-12 tablet by [facility] of tablet 00:00: mouth at [place] [address] bedtime. Medical Branch atorvastati 2022-0 Yes 80mg Take 1 [facility] n 80 mg 7-12 tablet by [facility] of tablet 00:00: mouth at [place] [address] bedtime. Medical Branch atorvastati 2022-0 Yes 80mg Take 1 [facility] n 80 mg 7-12 tablet by [facility] of tablet 00:00: mouth at [place] [address] bedtime. Medical Branch atorvastati 2022-0 Yes 80mg Take 1 [facility] n 80 mg 7-12 tablet by [facility] of tablet 00:00: mouth at [place] [address] bedtime. Medical Branch atorvastati 2022-0 Yes 80mg Take 1 [facility] n 80 mg 7-12 tablet by [facility] of tablet 00:00: mouth at [place] [address] bedtime. Medical Branch atorvastati 2022-0 Yes 80mg Take 1 [facility] n 80 mg 7-12 tablet by [facility] of tablet 00:00: mouth at [place] [address] bedtime. Medical Branch atorvastati 2022-0 Yes 80mg Take 1 [facility] n 80 mg 7-12 tablet by [facility] of tablet 00:00: mouth at [place] bedtime. Medical Branch atorvastati 2022-0 Yes 80mg Take 1 [facility] n 80 mg 7-12 tablet by [facility] of tablet 00:00: mouth at [place] [address] bedtime. Medical Branch atorvastati 2022-0 Yes 80mg Take 1 [facility] n 80 mg 7-12 tablet by [facility] of tablet 00:00: mouth at [place] [address] bedtime. Medical Branch atorvastati 2-0 Yes 80mg Take 1 [facility] n 80 mg 7-12 tablet by [facility] of tablet 00:00: mouth at [place] [address] bedtime. Medical Branch atorvastati 2-0 Yes 80mg Take 1 [facility] n 80 mg 7-12 tablet by [facility] of tablet 00:00: mouth at [place] [address] bedtime. Medical Branch atorvastati 2-0 Yes 80mg Take 1 [facility] n 80 mg 7-12 tablet by [facility] of tablet 00:00: mouth at [place] [address] bedtime. [facility] Branch atorvastati 2022-0 Yes 80mg Take 1 [facility] n 80 mg 7-12 tablet by [facility] of tablet 00:00: mouth at [place] [address] bedtime. Medical Branch atorvastati 2022-0 Yes 80mg Take 1 [facility] n 80 mg 7-12 tablet by [facility] of tablet 00:00: mouth at [place] [address] bedtime. [facility] Branch atorvastati 2022-0 Yes 80mg Take 1 [facility] n 80 mg 7-12 tablet by [facility] of tablet 00:00: mouth at [place] [address] bedtime. [facility] Branch atorvastati 2022-0 Yes 80mg Take 1 [facility] n 80 mg 7-12 tablet by [facility] of tablet 00:00: mouth at [place] [address] bedtime. Medical Branch atorvastati 2022-0 Yes 80mg Take 1 [facility] n 80 mg 7-12 tablet by [facility] of tablet 00:00: mouth at [place] [address] bedtime. [facility] Branch atorvastati 2022-0 Yes 80mg Take 1 [facility] n 80 mg 7-12 tablet by [facility] of tablet 00:00: mouth at [place] [address] bedtime. Medical Branch atorvastati 2022-0 Yes 80mg Take 1 [facility] n 80 mg 7-12 tablet by [facility] of tablet 00:00: mouth at [place] [address] bedtime. Medical Branch atorvastati 2-0 Yes 80mg Take 1 [facility] n 80 mg 7-12 tablet by [facility] of tablet 00:00: mouth at [place] [address] bedtime. Medical Branch atorvastati 2-0 Yes 80mg Take 1 [facility] n 80 mg 7-12 tablet by [facility] of tablet 00:00: mouth at [place] [address] bedtime. [facility] Branch atorvastati 2-0 Yes 80mg Take 1 [facility] n 80 mg 7-12 tablet by [facility] of tablet 00:00: mouth at [place] [address] bedtime. [facility] Branch atorvastati 2-0 Yes 80mg Take 1 [facility] n 80 mg 7-12 tablet by [facility] of tablet 00:00: mouth at [place] [address] bedtime. [facility] Branch atorvastati 2-0 Yes 80mg Take 1 [facility] n 80 mg 7-12 tablet by [facility] of tablet 00:00: mouth at [place] [address] bedtime. [facility] Branch atorvastati 2-0 Yes 80mg Take 1 [facility] n 80 mg 7-12 tablet by [facility] of tablet 00:00: mouth at [place] [address] bedtime. [facility] Branch atorvastati 2022-0 Yes 80mg Take 1 [facility] n 80 mg 7-12 tablet by [facility] of tablet 00:00: mouth at [place] [address] bedtime. [facility] Branch atorvastati 2022-0 Yes 80mg Take 1 [facility] n 80 mg 7-12 tablet by [facility] of tablet 00:00: mouth at [place] [address] bedtime. [facility] Branch atorvastati 2022-0 Yes 80mg Take 1 [facility] n 80 mg 7-12 tablet by [facility] of tablet 00:00: mouth at [place] [address] bedtime. [facility] Branch atorvastati 2022-0 Yes 80mg Take 1 [facility] n 80 mg 7-12 tablet by [facility] of tablet 00:00: mouth at [place] [address] bedtime. [facility] Branch atorvastati 2022-0 Yes 80mg Take 1 [facility] n 80 mg 7-12 tablet by [facility] of tablet 00:00: mouth at [place] 00 bedtime. [facility] Branch atorvastati 2021-0 Yes 80mg Take 1 [facility] n 80 mg 7-12 tablet by [facility] tablet 00:00: mouth at [place] 00 bedtime. [facility] Branch atorvastati 0 Yes [...] :00 daily. [facility] Branch furosemide 2021-0 Yes [id number] 40mg Take 2 [facility] 20 mg 2-16 02 tablets by [facility] tablet 00:00: mouth [place] 00 daily. [facility] Branch furosemide 2021-0 Yes [id number] 40mg Take 2 [facility] 20 mg 2-16 02 tablets by [facility] tablet 00:00: mouth [place] 00 daily. [facility] Branch furosemide 2021-0 Yes [id number] 40mg Take 2 [facility] 20 mg 2-16 02 tablets by [facility] tablet 00:00: mouth [place] 00 daily. [facility] Branch furosemide 2021-0 Yes [id number] 40mg Take 2 [facility] 20 mg 2-16 02 tablets by [facility] tablet 00:00: mouth [place] 00 daily. [facility] Branch furosemide 2021-0 Yes [id number] 40mg Take 2 [facility] 20 mg 2-16 02 tablets by [facility] tablet 00:00: mouth [place] 00 daily. [facility] Branch furosemide 2021-0 Yes [id number] 40mg Take 2 [facility] 20 mg 2-16 02 tablets by [facility] tablet 00:00: mouth [place] 00 daily. [facility] Branch furosemide 2021-0 Yes [id number] 40mg Take 2 [facility] 20 mg 2-16 02 tablets by [facility] tablet 00:00: mouth [place] 00 daily. [facility] furosemide 2021-0 Yes [id number] 40mg Take 2 [facility] 20 mg 2-16 02 tablets by [facility] tablet 00:00: mouth [place] 00 daily. [facility] furosemide 2021-0 Yes [id number] 40mg Take 2 [facility] 20 mg 2-16 02 tablets by [facility] tablet 00:00: mouth [place] 00 daily. [facility] furosemide 2021-0 Yes [id number] 40mg Take 2 [facility] 20 mg 2-16 02 tablets by [facility] tablet 00:00: mouth [place] 00 daily. [facility] furosemide 2021-0 Yes [id number] 40mg Take 2 [facility] 20 mg 2-16 02 tablets by [facility] tablet 00:00: mouth [place] 00 daily. [facility] furosemide 2021-0 Yes [id number] 40mg Take 2 [facility] 20 mg 2-16 02 tablets by [facility] tablet 00:00: mouth [place] 00 daily. [facility] furosemide 2021-0 Yes [id number] 40mg Take 2 [facility] 2-16 02 tablets by [facility] tablet 00:00: mouth [place] 00 daily. [facility] furosemide 2021-0 Yes [id number] 40mg Take 2 [facility] 20 mg 2-16 02 tablets by [facility] tablet 00:00: mouth [place] 00 daily. [facility] furosemide 2021-0 Yes [id number] 40mg Take 2 [facility] 20 mg 2-16 02 tablets by [facility] tablet 00:00: mouth [place] 00 daily. [facility] furosemide 2021-0 Yes [id number] 40mg Take 2 [facility] 20 mg 2-16 02 tablets by [facility] tablet 00:00: mouth [place] 00 daily. [facility] furosemide 2021-0 Yes [id number] 40mg Take 2 [facility] 20 mg 2-16 02 tablets by [facility] tablet 00:00: mouth [place] 00 daily. [facility] furosemide 2021-0 Yes [id number] 40mg Take 2 [facility] 20 mg 2-16 02 tablets by [facility] tablet 00:00: mouth [place] 00 daily. [facility] furosemide 2021-0 Yes [id number] 40mg Take 2 [facility] 20 mg 2-16 02 tablets by [facility] tablet 00:00: mouth [place] 00 daily. [facility] furosemide 2021-0 Yes [id number] 40mg Take 2 [facility] 20 mg 2-16 02 tablets by [facility] tablet 00:00: mouth [place] 00 daily. [facility] furosemide 2021-0 Yes [id number] 40mg Take 2 [facility] 20 mg 2-16 02 tablets by [facility] tablet 00:00: mouth [place] 00 daily. [facility] furosemide 2021-0 Yes [id number] 40mg Take 2 [facility] 20 mg 2-16 02 tablets by [facility] tablet 00:00: mouth [place] 00 daily. [facility] furosemide 2021-0 Yes [id number] 40mg Take 2 [facility] 20 mg 2-16 02 tablets by [facility] tablet 00:00: mouth [place] 00 daily. [facility] furosemide 2021-0 Yes [id number] 40mg Take 2 [facility] 20 mg 2-16 02 tablets by [facility] tablet 00:00: mouth [place] 00 daily. [facility] furosemide 2021-0 Yes [id number] 40mg Take 2 [facility] 20 mg 2-16 02 tablets by [facility] tablet 00:00: mouth [place] 00 daily. [facility] furosemide 2021-0 Yes [id number] 40mg Take 2 [facility] 20 mg 2-16 02 tablets by [facility] tablet 00:00: mouth [place] 00 daily. [facility] furosemide 2021-0 Yes [id number] 40mg Take 2 [facility] 20 mg 2-16 02 tablets by [facility] tablet 00:00: mouth [place] 00 daily. [facility] furosemide 2021-0 Yes [id number] 40mg Take 2 [facility] 20 mg 2-16 02 tablets by [facility] tablet 00:00: mouth [place] 00 daily. [facility] furosemide 2021-0 Yes [id number] 40mg Take 2 [facility] 20 mg 2-16 02 tablets by [facility] tablet 00:00: mouth [place] 00 daily. [facility] furosemide 2021-0 Yes [id number] 40mg Take 2 [facility] 20 mg 2-16 02 tablets by [facility] tablet 00:00: mouth [place] 00 daily. [facility] furosemide 2021-0 Yes [id number] 40mg Take 2 [facility] 20 mg 2-16 02 tablets by [facility] tablet 00:00: mouth [place] 00 daily. [facility] furosemide 2021-0 Yes [id number] 40mg Take 2 [facility] 20 mg 2-16 02 tablets by [facility] tablet 00:00: mouth [place] 00 daily. [facility] furosemide 2021-0 Yes [id number] 40mg Take 2 [facility] 20 mg 2-16 02 tablets by [facility] tablet 00:00: mouth [place] 00 daily. [facility] furosemide 2021-0 Yes [id number] 40mg Take 2 [facility] 20 mg 2-16 02 tablets by [facility] tablet 00:00: mouth [place] 00 daily. [facility] furosemide 2021-0 Yes [id number] 40mg Take 2 [facility] 20 mg 2-16 02 tablets by [facility] tablet 00:00: mouth [place] 00 daily. [facility] furosemide 2021-0 Yes [id number] 40mg Take 2 [facility] 20 mg 2-16 02 tablets by [facility] tablet 00:00: mouth [place] 00 daily. [facility] furosemide 2021-0 Yes [id number] 40mg Take 2 [facility] 20 mg 2-16 02 tablets by [facility] tablet 00:00: mouth [place] 00 daily. [facility] furosemide 2021-0 Yes [id number] 40mg Take 2 [facility] 20 mg 2-16 02 tablets by [facility] tablet 00:00: mouth [place] 00 daily. [facility] furosemide 2021-0 Yes [id number] 40mg Take 2 [facility] 20 mg 2-16 02 tablets by [facility] tablet 00:00: mouth [place] 00 daily. [facility] furosemide 2021-0 Yes [id number] 40mg Take 2 [facility] 20 mg 2-16 02 tablets by [facility] tablet 00:00: mouth [place] 00 daily. [facility] furosemide 2021-0 Yes [id number] 40mg Take 2 [facility] 20 mg 2-16 02 tablets by [facility] tablet 00:00: mouth [place] 00 daily. [facility] furosemide Yes [id number] 40mg Take 2 [facility] 20 mg 2-16 02 tablets by [facility] tablet 00:00: mouth [place] 00 daily. [facility] furosemide 2022- No [id number] 40mg Take 2 [facility] 20 mg 2-16 -27 02 tablets by [facility] tablet 00:00: 00:00 mouth [place] 00 :00 daily. [facility] furosemide 2022- No [id number] 40mg Take 2 [facility] 20 mg 2-16 -27 02 tablets by [facility] tablet 00:00: 00:00 mouth [place] 00 :00 daily. [facility] furosemide 2022- No [id number] 40mg Take 2 [facility] 20 mg 2-16 -27 02 tablets by [facility] tablet 00:00: 00:00 mouth [place] 00 :00 daily. [facility] furosemide 2022- No [id number] 40mg Take 2 [facility] 20 mg 2-16 -27 02 tablets by [facility] tablet 00:00: 00:00 mouth [place] 00 :00 daily. [facility] furosemide 2022- No [id number] 40mg Take 2 [facility] 20 mg 2-16 -27 02 tablets by [facility] tablet 00:00: 00:00 mouth [place] 00 :00 daily. [facility] metoprolol 2020-04 Yes [id number] 25mg Take 1 [facility] tartrate 25 2-15 tablet by [facility] mg tablet 00:00: mouth [place] 00 (two) Medical times [facility] daily. metoprolol 2020-04 Yes [id number] 25mg Take 1 [facility] tartrate 25 2-15 tablet by [facility] mg tablet 00:00: mouth 2 [place] 00 (two) Medical times [facility] daily. metoprolol 2020-04 Yes [id number] 25mg Take 1 [facility] tartrate 25 2-15 tablet by [facility] mg tablet 00:00: mouth 00 (two) Medical times [facility] daily. metoprolol 2020-04 Yes [id number] 25mg Take 1 [facility] tartrate 25 2-15 tablet by [facility] mg tablet 00:00: mouth (two) [facility] times [facility] daily. metoprolol 2020-04 Yes [id number] 25mg Take 1 [facility] tartrate 25 2-15 tablet by [facility] mg tablet 00:00: mouth (two) [facility] times [facility] daily. metoprolol 2020-04 Yes [id number] 25mg Take 1 [facility] tartrate 25 2-15 tablet by [facility] mg tablet 00:00: mouth (two) [facility] times [facility] daily. metoprolol 2020-04 Yes [id number] 25mg Take 1 [facility] tartrate 25 2-15 tablet by [facility] mg tablet 00:00: mouth (two) Medical times [facility] daily. metoprolol 2020-04 Yes [id number] 25mg Take 1 [facility] tartrate 25 2-15 tablet by [facility] mg tablet 00:00: mouth (two) Medical times [facility] daily. metoprolol 2020-04 Yes [id number] 25mg Take 1 [facility] tartrate 25 2-15 tablet by [facility] mg tablet 00:00: mouth (two) [facility] times [facility] daily. metoprolol 2020-04 Yes [id number] 25mg Take 1 [facility] tartrate 25 2-15 tablet by [facility] mg tablet 00:00: mouth (two) [facility] times [facility] daily. metoprolol 2020-04 Yes [id number] 25mg Take 1 [facility] tartrate 25 2-15 tablet by [facility] mg tablet 00:00: mouth (two) Medical times [facility] daily. metoprolol 2020-04 Yes [id number] 25mg Take 1 [facility] tartrate 25 2-15 tablet by [facility] mg tablet 00:00: mouth (two) [facility] times [facility] daily. metoprolol 2020-04 Yes [id number] 25mg Take 1 [facility] tartrate 25 2-15 tablet by [facility] mg tablet 00:00: mouth (two) [facility] times [facility] daily. metoprolol 2020-04 Yes [id number] 25mg Take 1 [facility] tartrate 25 2-15 tablet by [facility] mg tablet 00:00: mouth (two) Medical times [facility] daily. metoprolol 2020-04 Yes [id number] 25mg Take 1 [facility] tartrate 25 2-15 tablet by [facility] mg tablet 00:00: mouth (two) Medical times [facility] daily. metoprolol 2020-04 Yes [id number] 25mg Take 1 [facility] tartrate 25 2-15 tablet by [facility] mg tablet 00:00: mouth (two) Medical times [facility] daily. metoprolol 2020-04 Yes [id number] 25mg Take 1 [facility] tartrate 25 2-15 tablet by [facility] mg tablet 00:00: mouth (two) Medical times [facility] daily. metoprolol 2020-04 Yes [id number] 25mg Take 1 [facility] tartrate 25 2-15 tablet by [facility] mg tablet 00:00: mouth (two) Medical times [facility] daily. metoprolol 2020-04 Yes [id number] 25mg Take 1 [facility] tartrate 25 2-15 tablet by [facility] mg tablet 00:00: mouth (two) Medical times [facility] daily. metoprolol 2020-04 Yes [id number] 25mg Take 1 [facility] tartrate 25 2-15 tablet by [facility] mg tablet 00:00: mouth (two) Medical times [facility] daily. metoprolol 2020-04 Yes [id number] 25mg Take 1 [facility] tartrate 25 2-15 tablet by [facility] mg tablet 00:00: mouth (two) Medical times [facility] daily. metoprolol 2020-04 Yes [id number] 25mg Take 1 [facility] tartrate 25 2-15 tablet by [facility] mg tablet 00:00: mouth (two) Medical times [facility] daily. metoprolol 2020-04 Yes [id number] 25mg Take 1 [facility] tartrate 25 2-15 tablet by [facility] mg tablet 00:00: mouth (two) Medical times [facility] daily. metoprolol 2020-04 Yes [id number] 25mg Take 1 [facility] tartrate 25 2-15 tablet by [facility] mg tablet 00:00: mouth (two) Medical times [facility] daily. metoprolol 2020-04 Yes [id number] 25mg Take 1 [facility] tartrate 25 2-15 tablet by [facility] mg tablet 00:00: mouth (two) Medical times [facility] daily. metoprolol 2020-04 Yes [id number] 25mg Take 1 [facility] tartrate 25 2-15 tablet by [facility] mg tablet 00:00: mouth 2 00 (two) Medical times [facility] daily. metoprolol 2020-04 Yes [id number] 25mg Take 1 [facility] tartrate 25 2-15 tablet by [facility] mg tablet 00:00: mouth 2 00 (two) Medical times [facility] daily. metoprolol 2020-04 Yes [id number] 25mg Take 1 [facility] tartrate 25 2-15 tablet by [facility] mg tablet 00:00: mouth 2 (two) Medical times [facility] daily. metoprolol 2020-04 Yes [id number] 25mg Take 1 [facility] tartrate 25 2-15 tablet by [facility] mg tablet 00:00: mouth 2 (two) Medical times [facility] daily. metoprolol 2020-04- No [id number] 25mg Take 1 [facility] tartrate 25 2-15 12-19 tablet by [facility] mg tablet 00:00: 00:00 mouth [place] :[place] (two[place] [facility] times [facility] daily. polyethylen 2020-04 Yes [id number] 17g Take 1 [facility] e glycol 0-29 Packet by [facility] of 3350 17 00:00: mouth [place] gram powder 00 daily. [facility] polyethylen 2020-04 Yes [id number] 17g Take 1 [facility] e glycol 0-29 Packet by [facility] of 3350 17 00:00: mouth [place] gram powder 00 daily. [facility] polyethylen 2020-04 Yes [id number] 17g Take 1 [facility] e glycol 0-29 Packet by [facility] of 3350 17 00:00: mouth [place] gram powder 00 daily. [facility] polyethylen 2020-04 Yes [id number] 17g Take 1 [facility] e glycol 0-29 Packet by [facility] of 3350 17 00:00: mouth [place] gram powder 00 daily. [facility] polyethylen 2020-04 Yes [id number] 17g Take 1 [facility] e glycol 0-29 Packet by [facility] of 3350 17 00:00: mouth [place] gram powder 00 daily. [facility] polyethylen 2020-04 Yes [id number] 17g Take 1 [facility] e glycol 0-29 Packet by [facility] of 3350 17 00:00: mouth [place] gram powder 00 daily. [facility] polyethylen 2020-04 Yes [id number] 17g Take 1 [facility] e glycol 0-29 Packet by [facility] of 3350 17 00:00: mouth [place] gram powder 00 daily. [facility] polyethylen 2020-04 Yes [id number] 17g Take 1 [facility] e glycol 0-29 Packet by [facility] of 3350 17 00:00: mouth [place] gram powder 00 daily. [facility] polyethylen 2020-04 Yes [id number] 17g Take 1 [facility] e glycol 0-29 Packet by [facility] of 3350 17 00:00: mouth [place] gram powder 00 daily. [facility] polyethylen 2020-04 Yes [id number] 17g Take 1 [facility] e glycol 0-29 Packet by [facility] of 3350 17 00:00: mouth [place] gram powder 00 daily. [facility] polyethylen 2020-04 Yes [id number] 17g Take 1 [facility] e glycol 0-29 Packet by [facility] of 3350 17 00:00: mouth [place] gram powder 00 daily. [facility] polyethylen 2020-04 Yes [id number] 17g Take 1 [facility] e glycol 0-29 Packet by [facility] of 3350 17 00:00: mouth [place] gram powder 00 daily. [facility] polyethylen 2020-04 Yes [id number] 17g Take 1 [facility] e glycol 0-29 Packet by [facility] of 3350 17 00:00: mouth [place] gram powder 00 daily. [facility] polyethylen 2020-04 Yes [id number] 17g Take 1 [facility] e glycol 0-29 Packet by [facility] of 3350 17 00:00: mouth [place] gram powder 00 daily. [facility] polyethylen 2020-04 Yes [id number] 17g Take 1 [facility] e glycol 0-29 Packet by [facility] of 3350 17 00:00: mouth [place] gram powder 00 daily. [facility] polyethylen 2020-04 Yes [id number] 17g Take 1 [facility] e glycol 0-29 Packet by [facility] of 3350 17 00:00: mouth [place] gram powder 00 daily. [facility] polyethylen 2020-04 Yes [id number] 17g Take 1 [facility] e glycol 0-29 Packet by [facility] of 3350 17 00:00: mouth [place] gram powder 00 daily. [facility] polyethylen 2020-04 Yes [id number] 17g Take 1 [facility] e glycol 0-29 Packet by [facility] of 3350 17 00:00: mouth [place] gram powder 00 daily. [facility] polyethylen 2020-04 Yes [id number] 17g Take 1 [facility] e glycol 0-29 Packet by [facility] of 3350 17 00:00: mouth [place] gram powder 00 daily. [facility] polyethylen 2020-04 Yes [id number] 17g Take 1 [facility] e glycol 0-29 Packet by [facility] of 3350 17 00:00: mouth [place] gram powder 00 daily. [facility] polyethylen 2020-04 Yes [id number] 17g Take 1 [facility] e glycol 0-29 Packet by [facility] of 3350 17 00:00: mouth [place] gram powder 00 daily. [facility] polyethylen 2020-04 Yes [id number] 17g Take 1 [facility] e glycol 0-29 Packet by [facility] of 3350 17 00:00: mouth [place] gram powder 00 daily. [facility] polyethylen 2020-04 Yes [id number] 17g Take 1 [facility] glycol 0-29 Packet by [facility] of 3350 17 00:00: mouth [place] gram powder 00 daily. [facility] polyethylen 2020-04 Yes [id number] 17g Take 1 [facility] glycol 0-29 Packet by [facility] of 3350 17 00:00: mouth [place] gram powder 00 daily. [facility] polyethylen 2020-04 Yes [id number] 17g Take 1 [facility] glycol 0-29 Packet by [facility] of 3350 17 00:00: mouth [place] gram powder 00 daily. [facility] polyethylen 2020-04 Yes [id number] 17g Take 1 [facility] glycol 0-29 Packet by [facility] of 3350 17 00:00: mouth [place] gram powder 00 daily. [facility] polyethylen 2020-04 Yes [id number] 17g Take 1 [facility] glycol 0-29 Packet by [facility] of 3350 17 00:00: mouth [place] gram powder 00 daily. [facility] polyethylen 2020-04 Yes [id number] 17g Take 1 [facility] glycol 0-29 Packet by [facility] of 3350 17 00:00: mouth [place] gram powder 00 daily. [facility] polyethylen 2020-04 Yes [id number] 17g Take 1 [facility] glycol 0-29 Packet by [facility] of 3350 17 00:00: mouth [place] gram powder 00 daily. [facility] polyethylen 2020-04 Yes [id number] 17g Take 1 [facility] glycol 0-29 Packet by [facility] of 3350 17 00:00: mouth [place] gram powder 00 daily. [facility] polyethylen 2020-04 Yes [id number] 17g Take 1 [facility] glycol 0-29 Packet by [facility] of 3350 17 00:00: mouth [place] gram powder 00 daily. [facility] polyethylen 2020-04 Yes [id number] 17g Take 1 [facility] glycol 0-29 Packet by [facility] of 3350 17 00:00: mouth [place] gram powder 00 daily. [facility] polyethylen 2020-04 Yes [id number] 17g Take 1 [facility] e glycol 0-29 Packet by [facility] of 3350 17 00:00: mouth [place] gram powder 00 daily. [facility] polyethylen 2020-04 Yes [id number] 17g Take 1 [facility] e glycol 0-29 Packet by [facility] of 3350 17 00:00: mouth [place] gram powder 00 daily. [facility] polyethylen 2020-04 Yes [id number] 17g Take 1 [facility] glycol 0-29 Packet by [facility] of 3350 17 00:00: mouth [place] gram powder 00 daily. [facility] polyethylen 2020-04 Yes [id number] 17g Take 1 [facility] glycol 0-29 Packet by [facility] of 3350 17 00:00: mouth [place] gram powder 00 daily. [facility] polyethylen 2020-04 Yes [id number] 17g Take 1 [facility] e glycol 0-29 Packet by [facility] of 3350 17 00:00: mouth [place] gram powder 00 daily. [facility] polyethylen 2020-04 Yes [id number] 17g Take 1 [facility] glycol 0-29 Packet by [facility] of 3350 17 00:00: mouth [place] gram powder 00 daily. [facility] polyethylen 2020-04 Yes [id number] 17g Take 1 [facility] e glycol 0-29 Packet by [facility] of 3350 17 00:00: mouth [place] gram powder 00 daily. [facility] polyethylen 2020-04 Yes [id number] 17g Take 1 [facility] glycol 0-29 Packet by [facility] of 3350 17 00:00: mouth [place] gram powder 00 daily. [facility] polyethylen 2020-04 Yes [id number] 17g Take 1 [facility] glycol 0-29 Packet by [facility] of 3350 17 00:00: mouth [place] gram powder 00 daily. [facility] polyethylen 2020-04- No [id number] 17g Take 1 [facility] glycol 0-29 02-22 Packet by ity o f 3350 17 00:00: 00:00 mouth [place] gram powder 00 :00 daily. [facility] polyethylen 2020-04- No [id number] 17g Take 1 [facility] glycol 0-29 02-22 Packet by ity o f 3350 17 00:00: 00:00 mouth [place] gram powder 00 :00 daily. [facility] polyethylen 2020-04- No [id number] 17g Take 1 [facility] glycol 0-29 02-22 Packet by ity o f 3350 17 00:00: 00:00 mouth [place] gram powder 00 :00 daily. [facility] docusate 2020-04 Yes [id number] 100mg Take 1 [facility] 100 mg 0-28 capsule by [facility] of capsule 00:00: mouth 2 (two) Medical times [facility] daily. docusate 2020-04 Yes [id number] 100mg Take 1 [facility] 100 mg 0-28 capsule by [facility] of capsule 00:00: mouth 2 (two) Medical times [facility] daily. docusate 2020-04 Yes [id number] 100mg Take 1 [facility] 100 mg 0-28 capsule by [facility] of capsule 00:00: mouth 2 (two) Medical times [facility] daily. docusate 2020-04 Yes [id number] 100mg Take 1 [facility] 100 mg 0-28 capsule by [facility] of capsule 00:00: mouth 2 (two) Medical times [facility] daily. docusate 2020-04 Yes [id number] 100mg Take 1 [facility] 100 mg 0-28 capsule by [facility] of capsule 00:00: mouth 2 (two) Medical times [facility] daily. docusate 2020-04 Yes [id number] 100mg Take 1 [facility] 100 mg 0-28 capsule by [facility] of capsule 00:00: mouth (two) Medical times [facility] daily. docusate 2020-04 Yes [id number] 100mg Take 1 [facility] 100 mg 0-28 capsule by [facility] of capsule 00:00: mouth (two) Medical times [facility] daily. docusate 2020-04 Yes [id number] 100mg Take 1 [facility] 100 mg 0-28 capsule by [facility] of capsule 00:00: mouth (two) Medical times [facility] daily. docusate 2020-04 Yes [id number] 100mg Take 1 [facility] 100 mg 0-28 capsule by [facility] of capsule 00:00: mouth (two) Medical times [facility] daily. docusate 2020-04 Yes [id number] 100mg Take 1 [facility] 100 mg 0-28 capsule by [facility] of capsule 00:00: mouth (two) Medical times [facility] daily. docusate 2020-04 Yes [id number] 100mg Take 1 [facility] 100 mg 0-28 capsule by [facility] of capsule 00:00: mouth (two) Medical times [facility] daily. docusate 2020-04 Yes [id number] 100mg Take 1 [facility] 100 mg 0-28 capsule by [facility] of capsule 00:00: mouth (two) Medical times [facility] daily. docusate 2020-04 Yes [id number] 100mg Take 1 [facility] 100 mg 0-28 capsule by [facility] of capsule 00:00: mouth (two) Medical times [facility] daily. docusate 2020-04 Yes [id number] 100mg Take 1 [facility] 100 mg 0-28 capsule by [facility] of capsule 00:00: mouth (two) Medical times [facility] daily. docusate 2020-04 Yes [id number] 100mg Take 1 [facility] 100 mg 0-28 capsule by [facility] of capsule 00:00: mouth (two) Medical times [facility] daily. docusate 2020-04 Yes [id number] 100mg Take 1 [facility] 100 mg 0-28 capsule by [facility] of capsule 00:00: mouth (two) Medical times [facility] daily. docusate 2020-04 Yes [id number] 100mg Take 1 [facility] 100 mg 0-28 capsule by [facility] of capsule 00:00: mouth (two) Medical times [facility] daily. docusate 2020-04 Yes [id number] 100mg Take 1 [facility] 100 mg 0-28 capsule by [facility] of capsule 00:00: mouth (two) Medical times [facility] daily. docusate 2020-04 Yes [id number] 100mg Take 1 [facility] 100 mg 0-28 capsule by [facility] of capsule 00:00: mouth (two) Medical times [facility] daily. docusate 2020-04 Yes [id number] 100mg Take 1 [facility] 100 mg 0-28 capsule by [facility] of capsule 00:00: mouth (two) Medical times [facility] daily. docusate 2020-04 Yes [id number] 100mg Take 1 [facility] 100 mg 0-28 capsule by [facility] of capsule 00:00: mouth (two) Medical times [facility] daily. docusate 2020-04 Yes [id number] 100mg Take 1 [facility] 100 mg 0-28 capsule by [facility] of capsule 00:00: mouth (two) Medical times [facility] daily. docusate 2020-04 Yes [id number] 100mg Take 1 [facility] 100 mg 0-28 capsule by [facility] of capsule 00:00: mouth (two) Medical times [facility] daily. docusate 2020-04 Yes [id number] 100mg Take 1 [facility] 100 mg 0-28 capsule by [facility] of capsule 00:00: mouth (two) Medical times [facility] daily. docusate 2020-04 Yes [id number] 100mg Take 1 [facility] 100 mg 0-28 capsule by [facility] of capsule 00:00: mouth (two) Medical times [facility] daily. docusate 2020-04 Yes [id number] 100mg Take 1 [facility] 100 mg 0-28 capsule by [facility] of capsule 00:00: mouth 2 (two) Medical times [facility] daily. docusate 2020-04 Yes [id number] 100mg Take 1 [facility] 100 mg 0-28 capsule by [facility] of capsule 00:00: mouth (two) Medical times [facility] daily. docusate 2020-04 Yes [id number] 100mg Take 1 [facility] 100 mg 0-28 capsule by [facility] of capsule 00:00: mouth (two) Medical times [facility] daily. docusate 2020-04 Yes [id number] 100mg Take 1 [facility] 100 mg 0-28 capsule by [facility] of capsule 00:00: mouth (two) Medical times [facility] daily. docusate 2020-04 Yes [id number] 100mg Take 1 [facility] 100 mg 0-28 capsule by [facility] of capsule 00:00: mouth (two) Medical times [facility] daily. docusate 2020-04 Yes [id number] 100mg Take 1 [facility] 100 mg 0-28 capsule by [facility] of capsule 00:00: mouth (two) Medical times [facility] daily. docusate 2020-04 Yes [id number] 100mg Take 1 [facility] 100 mg 0-28 capsule by [facility] of capsule 00:00: mouth (two) Medical times [facility] daily. docusate 2020-04 Yes [id number] 100mg Take 1 [facility] 100 mg 0-28 capsule by [facility] of capsule 00:00: mouth (two) Medical times [facility] daily. docusate 2020-04 Yes [id number] 100mg Take 1 [facility] 100 mg 0-28 capsule by [facility] of capsule 00:00: mouth (two) Medical times [facility] daily. docusate 2020-04 Yes [id number] 100mg Take 1 [facility] 100 mg 0-28 capsule by [facility] of capsule 00:00: mouth [place] (two) Medical times [facility] daily. docusate 2020-04 Yes [id number] 100mg Take 1 [facility] 100 mg 0-28 capsule by [facility] of capsule 00:00: mouth (two) Medical times [facility] daily. docusate 2020-04 Yes [id number] 100mg Take 1 [facility] 100 mg 0-28 capsule by [facility] of capsule 00:00: mouth 2 (two) Medical times [facility] daily. docusate 2020-04 Yes [id number] 100mg Take 1 [facility] 100 mg 0-28 capsule by [facility] of capsule 00:00: mouth (two) Medical times [facility] daily. docusate 2020-04 Yes [id number] 100mg Take 1 [facility] 100 mg 0-28 capsule by [facility] of capsule 00:00: mouth 2 [place] 00 (two) Medical times Branch daily. docusate 2020-04 Yes [id number] 100mg Take 1 [facility] 100 mg 0-28 capsule by [facility] of capsule 00:00: mouth 2 [place] 00 (two) Medical times Branch daily. docusate 2020-04 Yes [id number] 100mg Take 1 [facility] 100 mg 0-28 capsule by [facility] of capsule 00:00: mouth 2 [place] 00 (two) Medical times Branch daily. docusate 2020-04- No [id number] 100mg Take 1 [facility] 100 mg 0-28 02-22 capsule by [facility] of capsule 00:00: 00:00 mouth 2 [place] 00 :00 (two) Medical times Branch daily. docusate 2020-04- No [id number] 100mg Take 1 [facility] 100 mg 0-28 02-22 capsule by ity of capsule 00:00: 00:00 mouth 2 [place] 00 :00 (two) Medical times Branch daily. docusate 2020-04- No [id number] 100mg Take 1 [facility] 100 mg 0-28 02-22 capsule by ity of capsule 00:00: 00:00 mouth 2 [place] 00 :00 (two) Medical times Branch daily. gabapentin 2017-0 Yes Take by [facility] 300 mg 4-21 mouth ity of capsule 00:00: daily. [place] [address] [facility] Branch lidocaine 5 2017-0 Yes Univer [...] 4-21 mouth ity of capsule 00:00: daily. [place] [address] [facility] Branch lidocaine 5 2017-0 Yes Univer [...] mg EC 4-14 ity of tablet 00:00: [address] Branch pantoprazol 2017-0 Yes Univer s e 40 mg EC 4-14 ity of tablet 00:00: [place] [facility] pantoprazol 2017-0 Yes Un[facility] s e 40 mg EC 4-14 ity of tablet 00:00: [address] Branch pantoprazol 2017-0 Yes Un[facility] s e 40 mg EC 4-14 ity of tablet 00:00: [address] Branch pantoprazol 2017-0 Yes Un[facility] s e 40 mg EC 4-14 ity of tablet 00:00: [address] Branch pantoprazol 2017-0 Yes Un[facility] s e 40 mg EC 4-14 ity of tablet 00:00: [address] Branch pantoprazol 2017-0 Yes Un[facility] s e 40 mg EC 4-14 ity of tablet 00:00: [place] [facility] pantoprazol 2017-0 Yes Un[facility] s e 40 mg EC 4-14 ity of tablet 00:00: [place] [address] [facility] Branch pantoprazol 2017-0 Yes Univer s e 40 mg EC 4-14 ity of tablet 00:00: [place] [address] [facility] Branch pantoprazol 2017-0 Yes Univer s [...] EC 4-14 ity of tablet 00:00: [place] [facility] pantoprazol 2017-0 Yes Univer s e 40 mg EC 4-14 ity of tablet 00:00: [place] [facility] pantoprazol 2017-0 Yes Univer s e 40 mg EC 4-14 ity of tablet 00:00: [place] [facility] pantoprazol 2017-0 Yes Univer s e 40 mg EC 4-14 ity of tablet 00:00: [place] [facility] pantoprazol 2017-0 Yes Univer s e 40 mg EC 4-14 ity of tablet 00:00: [place] [facility] Branch pantoprazol 2017-0 Yes Univer s e 40 mg EC 4-14 ity of tablet 00:00: [address] pantoprazol 2017-0 Yes Univer s e 40 mg EC 4-14 ity of tablet 00:00: [place] [facility] pantoprazol 2017-0 Yes Univer s e 40 mg EC 4-14 ity of tablet 00:00: [address] pantoprazol 2017-0 Yes Univer s e 40 mg EC 4-14 ity of tablet 00:00: [facility] pantoprazol 2017-0 Yes Univer s e 40 mg EC 4-14 ity of tablet 00:00: [facility] pantoprazol 2017-0 Yes Univer s e 40 mg EC 4-14 ity of tablet 00:00: [facility] pantoprazol 2017-0 Yes Univer s e 40 mg EC 4-14 ity of tablet 00:00: [facility] pantoprazol 2017-0 Yes Univer s e 40 mg EC 4-14 ity of tablet 00:00: [facility] pantoprazol 2017-0 Yes Univer s e [...] EC 4-14 ity of tablet 00:00: [facility] pantoprazol 2017-0 Yes Univer s e 40 mg EC 4-14 ity of tablet 00:00: [facility] pantoprazol 2017-0 Yes Univer s e 40 mg EC 4-14 ity of tablet 00:00: [facility] pantoprazol 2017-0 Yes Univer s e 40 mg EC 4-14 ity of tablet 00:00: [facility] pantoprazol 2017-0 Yes Univer s e 40 mg EC 4-14 ity of tablet 00:00: [address] Branch pantoprazol 2017-0 Yes Univer s e 40 mg EC 4-14 ity of tablet 00:00: [facility] pantoprazol 2017-0 Yes Univer s e 40 mg EC 4-14 ity of tablet 00:00: [facility] pantoprazol 2017-0 Yes Univer s e 40 mg EC 4-14 ity of tablet 00:00: [facility] pantoprazol 2017-0 Yes Univer s e 40 mg EC 4-14 ity of tablet 00:00: [facility] pantoprazol 2017-0 Yes Univer s e 40 mg EC 4-14 ity of tablet 00:00: [facility] pantoprazol 2017-0 Yes Univer s e 40 mg EC 4-14 ity of tablet 00:00: [facility] pantoprazol 2017-0 Yes Univer s e [...] EC 4-14 ity of tablet 00:00: [facility] pantoprazol 2017-0 Yes Univer s e 40 mg EC 4-14 ity of tablet 00:00: [facility] pantoprazol 2017-0 Yes Univer s e 40 mg EC 4-14 ity of tablet 00:00: [facility] pantoprazol 2017-0 Yes Univer s e 40 mg EC 4-14 ity of tablet 00:00: [facility] pantoprazol 2017-0 Yes Univer s e 40 mg EC 4-14 ity of tablet 00:00: [facility] pantoprazol 2017-0 Yes Univer s e 40 mg EC 4-14 ity of tablet 00:00: [facility] pantoprazol 2017-0 Yes Univer s e 40 mg EC 4-14 ity of tablet 00:00: [facility] pantoprazol 2017-0 Yes Univer s e 40 mg EC 4-14 ity of tablet 00:00: [address] pantoprazol 2017-0 Yes Univer s e 40 mg EC 4-14 ity of tablet 00:00: [address] pantoprazol 2017-0 Yes Univer s e 40 mg EC 4-14 ity of tablet 00:00: [facility] pantoprazol 2017-0 Yes Univer s e 40 mg EC 4-14 ity of tablet 00:00: [facility] pantoprazol 2017-0 Yes Univer s e 40 mg EC 4-14 ity of tablet 00:00: [facility] pantoprazol 2017-0 Yes Univer s e 40 mg EC 4-14 ity of tablet 00:00: [facility] pantoprazol 2017-0 Yes Univer s e 40 mg EC 4-14 ity of tablet 00:00: [facility] pantoprazol 2017-0 Yes Univer s e 40 mg EC 4-14 ity of tablet 00:00: [address] Branch pantoprazol 2017-0 Yes Univer s e 40 mg EC 4-14 ity of tablet 00:00: [facility] pantoprazol 2017-0 Yes Univer s e [...] Immunizations Ordered Filled Immunization Date Status Comments [facility] e Immunization Name Name Influenza Virus 2021-03-06 [...] 18:09:00 134 mm[Hg] Univer sity of pressure [facility] Diastolic blood 2022-08-28 18:09:00 72 mm[Hg] Unive rsity of pressure [facility] Heart rate 2022-08-28 18:09:00 71 /min [facility] Respiratory rate 2022-08-28 18:09:00 19 /min [facility] ersity of [facility] Body height 2022-08-28 18:09:00 160 cm [facility] Body weight 2022-08-28 18:09:00 46.63 kg [facility] BMI 2022-08-28 18:09:00 18.21 kg/m2 [facility] Oxygen saturation in 2022-08-28 18:09:00 98 /min [facility] Arterial blood by [facility] Pulse oximetry Branch Systolic blood 2022-06-25 15:38:00 137 mm[Hg] Univer sity of pressure [facility] Diastolic blood 2022-06-25 15:38:00 46 mm[Hg] Unive rsity of pressure [facility] Heart rate 2022-06-25 15:38:00 56 /min [facility] Body temperature 2022-06-25 15:38:00 36.11 Allie [facility] ersity of [facility] Respiratory rate 2022-06-25 15:38:00 17 /min [facility] ersity of [facility] Body height 2022-06-25 15:38:00 160 cm [facility]i [facility] Body weight 2022-06-25 15:38:00 46.494 kg [facility] of [facility] BMI 2022-06-25 15:38:00 18.16 kg/m2 [facility] Systolic blood 2022-06-12 13:39:00 124 mm[Hg] Univer sity of pressure [facility] Diastolic blood 2022-06-12 13:39:00 56 mm[Hg] Unive rsity of pressure [facility] Heart rate 2022-06-12 13:39:00 74 /min [facility] Body temperature 2022-06-12 13:39:00 36.67 Allie Univ ersity [facility] Respiratory rate 2022-06-12 13:39:00 18 /min Univ ersity of [facility] Oxygen saturation in 2022-06-12 13:39:00 100 /min University of Arterial blood by [place] [employer] tyrone Pulse oximetry Branch Body weight 2022-06-12 10:12:00 46.494 kg [facility] BMI 2022-06-12 10:12:00 18.16 kg/m2 [facility] Body height 2022-06-06 23:33:00 160 cm [facility] HEIGHT 2022-05-18 09:00:00 160 cm [...] 99 /min University of Arterial blood by [employer] tyrone Pulse oximetry Branch Systolic blood 2022-02-28 19:10:00 161 mm[Hg] Univer sity of pressure [facility] Diastolic blood 2022-02-28 19:10:00 59 mm[Hg] Unive rsity of pressure [facility] Heart rate 2022-02-28 19:10:00 50 /min [facility] Oxygen saturation in 2022-02-28 19:10:00 100 /min University of Arterial blood by [facility] Pulse oximetry Branch Body temperature 2022-02-28 [...] 2022-06-25 15:38:00 36.11 Allie Univ ersity [facility] Respiratory rate 2022-06-25 15:38:00 17 /min Univ ersity [facility] Body height 2022-06-25 15:38:00 160 cm [facility] Body weight 2022-06-25 15:38:00 46.494 kg [facility] BMI 2022-06-25 15:38:00 18.16 kg/m2 [facility] Systolic blood 2022-06-12 13:39:00 124 mm[Hg] Univer sity of pressure [facility] Diastolic blood 2022-06-12 13:39:00 56 mm[Hg] Unive rsity of pressure [facility] Heart rate 2022-06-12 13:39:00 74 /min [facility] Body temperature 2022-06-12 13:39:00 36.67 Allie Univ ersity [facility] Respiratory rate 2022-06-12 13:39:00 18 /min [facility] Oxygen saturation in 2022-06-12 13:39:00 100 /min University Arterial blood by [facility] Pulse oximetry Branch Body weight 2022-06-12 10:12:00 46.494 kg [facility] BMI 2022-06-12 10:12:00 18.16 kg/m2 [facility] Body height 2022-06-06 23:33:00 160 cm [facility] Systolic blood 2022-05-27 16:06:00 109 mm[Hg] [facility] Diastolic blood 2022-05-27 16:06:00 53 mm[Hg] [facility] Heart rate 2022-05-27 16:03:00 69 /min [facility] Body temperature 2022-05-27 16:03:00 37.11 Allie [facility] Respiratory rate 2022-05-27 16:03:00 17 /min [facility] Oxygen saturation in 2022-05-27 16:03:00 96 /min [facility] Arterial blood by Medical Ce nter Pulse oximetry Systolic blood 2022-05-24 07:00:00 117 mm[Hg] [facility] Diastolic blood 2022-05-24 07:00:00 73 mm[Hg] [facility] Heart rate 2022-05-24 07:00:00 81 /min [facility] Body temperature 2022-05-24 07:00:00 36.67 Allie [facility] Respiratory rate 2022-05-24 07:00:00 15 /min [facility] Oxygen saturation in 2022-05-24 07:00:00 96 /min [facility] Arterial blood by Medical Ce [facility]ter Pulse oximetry Systolic blood 2022-05-22 08:00:00 126 mm[Hg] [facility] Diastolic blood 2022-05-22 08:00:00 62 mm[Hg] [facility] Heart rate 2022-05-22 08:00:00 63 /min [facility] Respiratory rate 2022-05-22 08:00:00 24 /min [facility] Oxygen saturation in 2022-05-22 08:00:00 98 /min [facility] Arterial blood by Medical Ce [facility]ter Pulse oximetry Body temperature 2022-05-21 16:00:00 36.67 Allie [facility] Systolic blood 2022-05-21 08:23:00 127 mm[Hg] [facility] Diastolic blood 2022-05-21 08:23:00 65 mm[Hg] [facility] Heart rate 2022-05-21 07:30:00 76 /min [facility] Respiratory rate 2022-05-21 07:30:00 17 /min [facility] Oxygen saturation in 2022-05-21 07:30:00 98 /min [facility] Arterial blood by Medical Ce [facility]ter Pulse oximetry Body temperature 2022-05-21 00:00:00 36.17 Allie [facility] Body height 2022-05-18 09:00:00 160 cm [facility] Body weight 2022-05-18 09:00:00 47.9 kg [facility] BMI 2022-05-18 09:00:00 18.71 kg/m2 [facility] Procedures Procedure Date / Time Performing Clinician Source Performed MEDICAL RELEASE/CLEARANCE 2022-08-23 05:01:00 Doctor Unassigned, No [facility] FORMS [facility] Medical Branch XR HIPS 2 VW RIGHT 2022-08-01 15:29:05 Joseph Cortes [facility] CONSENT/REFUSAL FOR 2022-08-01 15:11:45 Doctor Unassigned, No [facility] [place] [facility] Name Medical Branch ASSIGNMENT OF BENEFITS 2022-08-01 15:11:28 Doctor Unassigned, No [facility] PROTHROMBIN TIME / INR 2022-07-10 14:51:00 [place] [facility] CONSENT/REFUSAL FOR 2022-07-10 14:37:14 [facility]igned, No [facility] CONSENT/REFUSAL FOR 2022-07-10 14:37:14 Doctor Unassigned, No [facility] Name Medical [facility] ASSIGNMENT OF BENEFITS 2022-07-10 14:36:56 Doctor Unassigned, No [facility] ASSIGN[facility] OF BENEFITS 2022-07-10 14:36:56 Doctor Unassigned, No [facility] PROTHROMBIN TIME / INR 2022-06-25 15:22:00 [place] [facility] PROTHROMBIN TIME / INR 2022-06-12 08:34:00 Mariia Cardona Un [facility] MAGNESIUM 2022-06-12 08:34:[address] [facility] BASIC METABOLIC PANEL 2022-06-12 08:34:00 [facility] (NA, K, CL, CO2, GLUCOSE, Medica l Branch BUN, CREATININE, CA) CBC WITH DIFF 2022-06-12 08:34:00 Omkar [facility] ACTIVATED PARTIAL 2022-06-12 08:34:00 Demond [facility] MAGNESIUM 2022-06-12 08:34:00 [facility] BASIC METABOLIC PANEL 2022-06-12 08:34:00 [facility]mkar [facility] (NA, K, CL, CO2, GLUCOSE, Medica l Branch BUN, CREATININE, CA) CBC WITH DIFF 2022-06-12 08:34:[address] [facility] PROTHROMBIN TIME / INR 2022-06-12 08:34:00 Mariia Cardona Un [facility] ACTIVATED PARTIAL 2022-06-12 08:34:00 Demond [facility] ACTIVATED PARTIAL 2022-06-12 02:29:00 Demond [facility] ACTIVATED PARTIAL 2022-06-12 02:29:00 Demond [facility] EXTRA TUBE LT. GREEN 2022-06-12 00:00:00 Mariia Cardona [facility] EXTRA TUBE LT. GREEN 2022-06-12 00:00:00 Mariia Cardona [facility] BLOOD CULTURE SCREEN 2022-06-11 19:48:00 Leslie Espitia [facility] BLOOD CULTURE SCREEN 2022-06-11 19:48:00 Leslie Espitia U [facility] BLOOD CULTURE SCREEN 2022-06-11 19:42:00 Leslie Espitia U [facility] BLOOD CULTURE SCREEN 2022-06-11 19:42:00 Leslie Espitia U [facility] TRANSESOPHAGEAL ECHO 2022-06-11 15:58:00 Juan Francisco [facility] ([place]) COMPLETE W/ DOPPLER [facility] AND COLOR TRANSESOPHAGEAL ECHO 2022-06-11 15:58:00 Juan Francisco [facility] ([place]) COMPLETE W/ DOPPLER [facility] AND COLOR ACTIVATED PARTIAL 2022-06-11 14:52:00 Demond [facility] ACTIVATED PARTIAL 2022-06-11 14:52:00 Demond [facility] PROTHROMBIN TIME / INR 2022-06-11 08:57:00 Mariia Cardona [facility] BASIC METABOLIC PANEL 2022-06-11 08:57:00 Les Ortega [facility] (NA, K, CL, CO2, GLUCOSE, Medica l Branch BUN, CREATININE, CA) MAGNESIUM 2022-06-11 08:57:[address] [facility] ACTIVATED PARTIAL 2022-06-11 08:57:00 Demond [facility] MAGNESIUM 2022-06-11 08:57:[address] [facility] BASIC METABOLIC PANEL 2022-06-11 08:57:00 Jordan Nithisha [facility] (NA, K, CL, CO2, GLUCOSE, Medica l Branch BUN, CREATININE, CA) PROTHROMBIN TIME / INR 2022-06-11 08:57:00 Kirk Mariia Connell Morteza [facility] ACTIVATED PARTIAL 2022-06-11 08:57:00 Demond [facility] HB ECG ROUTINE & RHYTHM 2022-06-11 07:47:48 Jordan [facility] ACTIVATED PARTIAL 2022-06-10 20:19:00 Demond [facility] ACTIVATED PARTIAL 2022-06-10 20:19:00 Demond [facility] HB ECG ROUTINE & RHYTHM 2022-06-10 16:35:44 Jordan [facility] HB ECG ROUTINE & RHYTHM 2022-06-10 16:35:44 Jordan [facility] MAGNESIUM 2022-06-10 08:20:00 [facility]OLIC PANEL 2022-06-10 08:20:00 Leslie Espitia [facility] (NA, K, CL, CO2, GLUCOSE, Medica l Branch BUN, CREATININE, CA) CBC WITH DIFF 2022-06-10 08:20:00 Leslie Espitia [facility] PROTHROMBIN TIME / INR 2022-06-10 08:20:00 Leslie Espitia [facility] ACTIVATED PARTIAL 2022-06-10 08:20:00 Demond [facility] MAGNESIUM 2022-06-10 08:20:00 Leslie Espitia [facility] BASIC METABOLIC PANEL 2022-06-10 08:20:00 Omkar eda [facility] (NA, K, CL, CO2, GLUCOSE, Medica l Branch BUN, CREATININE, CA) CBC WITH DIFF 2022-06-10 08:20:[address] [facility] PROTHROMBIN TIME / INR 2022-06-10 08:20:00 Leslie Espitia [facility] ACTIVATED PARTIAL 2022-06-10 08:20:00 Demond [facility] EKG-12 LEAD 2022-06-10 04:08:10 Aicha melony [facility] ACTIVATED PARTIAL 2022-06-09 23:33:00 Demond, [facility] ACTIVATED PARTIAL 2022-06-09 23:33:00 Demond, [facility] ACTIVATED PARTIAL 2022-06-09 22:22:00 Demond, [facility] ACTIVATED PARTIAL 2022-06-09 22:22:00 Demond, [facility] BASIC METABOLIC PANEL 2022-06-09 20:19:00 Demond [facility] (NA, K, CL, CO2, GLUCOSE, Medica l Branch BUN, CREATININE, CA) BASIC METABOLIC PANEL 2022-06-09 20:19:00 Demond [facility] (NA, K, CL, CO2, GLUCOSE, Medica l Branch BUN, CREATININE, CA) HB ECG ROUTINE & RHYTHM 2022-06-09 16:45:40 Demond [facility] HB ECG ROUTINE & RHYTHM 2022-06-09 16:45:40 [facility] 2022-06-09 10:03:00 Leslie Espitia [facility] BASIC METABOLIC PANEL 2022-06-09 10:03:00 Leslie Espitia [facility] (NA, K, CL, CO2, GLUCOSE, Medica l Branch BUN, CREATININE, CA) CBC WITH DIFF 2022-06-09 10:03:00 Leslie Espitia [facility] PROTHROMBIN TIME / INR 2022-06-09 10:03:00 [facility] 2022-06-09 10:03:00 Leslie Espitia [facility] BASIC METABOLIC PANEL 2022-06-09 10:03:00 Leslie Espitia [facility] (NA, K, CL, CO2, GLUCOSE, Medica l Branch BUN, CREATININE, CA) CBC WITH DIFF 2022-06-09 10:03:00 Leslie Espitia [facility] PROTHROMBIN TIME / INR 2022-06-09 10:03:00 Kirk HemadrianaMariia [facility] EKG-12 LEAD 2022-06-09 04:12:20 Al Hemyari [facility] EKG-12 LEAD 2022-06-09 04:12:20 Kirk Hemyari [facility] PROTHROMBIN TIME / INR 2022-06-08 17:35:00 Leslie Espitia [facility] PROTHROMBIN TIME / INR 2022-06-08 17:35:00 Omkar eda [facility] EKG-12 LEAD 2022-06-08 17:18:35 Kirk Hemadriana [facility] EKG-12 LEAD 2022-06-08 17:18:35 Kirk Hemadriana [facility] MAGNESIUM 2022-06-08 10:46:00 Leslie Espitia [facility] BASIC METABOLIC PANEL 2022-06-08 10:46:00 Leslie Espitia [facility] (NA, K, CL, CO2, GLUCOSE, Medica l Branch BUN, CREATININE, CA) CBC WITH DIFF 2022-06-08 10:46:00 Leslie Espitia [facility] MAGNESIUM 2022-06-08 10:46:00 Leslie Espitia [facility] BASIC METABOLIC PANEL 2022-06-08 10:46:00 Omkar eda [facility] (NA, K, CL, CO2, GLUCOSE, Medica l Branch BUN, CREATININE, CA) CBC WITH DIFF 2022-06-08 10:46:00 [facility]12 LEAD 2022-06-08 03:55:51 Kirk Hemyari [facility] EKG-12 LEAD 2022-06-08 03:55:51 Kirk Ko [facility] TRANSTHORACIC ECHO (TTE) 2022-06-07 17:56:10 Kirk Connell [facility] TRANSTHORACIC ECHO (TTE) 2022-06-07 17:56:10 Kirk Connell [facility] HB ECG ROUTINE & RHYTHM 2022-06-07 15:36:46 Leslie Espitia [facility] HB ECG ROUTINE & RHYTHM 2022-06-07 15:36:46 Leslie Espitia [facility] URINE DRUG (LCMSMS) - 2022-06-07 15:01:00 Opal Yen [facility] DRUG [facility] URINE DRUG (LCWYMS) - 2022-06-07 15:01:00 Opal Yen [facility] COMPREHENSIVE DRUG [facility] CBC WITH DIFF 2022-06-07 10:51:00 Opal Yen [facility] BASIC METABOLIC PANEL 2022-06-07 10:51:00 Opal Yen [facility] (NA, K, CL, CO2, GLUCOSE, Medica l Branch BUN, CREATININE, CA) IRON PANEL 2022-06-07 10:51:00 Opal Yen [facility] BASIC METABOLIC PANEL 2022-06-07 10:51:00 Opal Yen [facility] (NA, K, CL, CO2, GLUCOSE, Medica l Branch BUN, CREATININE, CA) IRON PANEL 2022-06-07 10:51:00 Opal Yen [facility] CBC WITH DIFF 2022-06-07 10:51:00 Opal Yen [facility] BASIC METABOLIC PANEL 2022-06-07 02:29:00 Opal Yen [facility] (NA, K, CL, CO2, GLUCOSE, Medica l Branch BUN, CREATININE, CA) HEPATIC FUNCTION PANEL 2022-06-07 02:29:[address] [facility] ([id number]) (ALB,T.PRO,BILI Medical Branch T,BU/BC,ALT,AST,ALK PHOS) MAGNESIUM 2022-06-07 02:29:00 Opal Yen [facility] FOLATE 2022-06-07 02:29:00 FarshadOpal [facility] MAGNESIUM 2022-06-07 02:29:00 FarshadOpal [facility] FOLATE 2022-06-07 02:29:00 FarshadOpal [facility] HEPATIC FUNCTION PANEL 2022-06-07 02:29:[address] [facility] ([id number]) (ALB,T.PRO,BILI Medical Branch T,BU/BC,ALT,AST,ALK PHOS) BASIC METABOLIC PANEL 2022-06-07 02:29:00 Opal Yen [facility] (NA, K, CL, CO2, GLUCOSE, Medica l Branch BUN, CREATININE, CA) HB ECG ROUTINE & RHYTHM 2022-06-07 00:50:00 Opal Yen [facility] PROTHROMBIN TIME / INR 2022-06-07 00:33:00 Opal Yen [facility] ACTIVATED PARTIAL 2022-06-07 00:33:00 Opal Yen [facility] CBC WITH DIFF 2022-06-07 00:33:00 Farshad Opal Jared [facility] FERRITIN SERUM 2022-06-07 00:33:00 Farshad Opal Jared [facility] VITAMIN B12, LEVEL 2022-06-07 00:33:00 Opal Yen [facility] FERRITIN SERUM 2022-06-07 00:33:00 Farshad Opal Jared [facility] VITAMIN B12, LEVEL 2022-06-07 00:33:00 Opal Yen [facility] CBC WITH DIFF 2022-06-07 00:33:00 Opal Yen [facility] PROTHROMBIN TIME / INR 2022-06-07 00:33:00 Opal Yen [facility] ACTIVATED PARTIAL 2022-06-07 00:33:00 Opal Yen [facility] PROTHROMBIN TIME / INR 2022-06-06 16:10:00 [place] Dan [facility] HOSPITAL ADMISSION 2022-06-06 06:01:00 Doctor Unassigned, No Uni [facility] CBC W/PLT COUNT & AUTO 2022-05-27 04:37:00 [facility] [place] PROTHROMBIN TIME/INR 2022-05-27 04:37[facility]00 [facility] 2022-05-27 04:37:00 Rubén Meaghan Melba [facility] BASIC METABOLIC PANEL 2022-05-27 04:37:00 Meaghan [facility] CBC W/PLT COUNT & AUTO 2022-05-27 04:37:00 Rick, [facility] APTT 2022-05-26 09:28:00 [facility] CBC W/PLT COUNT & AUTO 2022-05-26 06:27:00 Rick [facility] PROTHROMBIN TIME/INR 2022-05-26 06:27:00 Rick [facility] MAGNESIUM 2022-05-26 06:27:00 Rubén Meaghan [facility] BASIC METABOLIC PANEL 2022-05-26 06:27:00 Meaghna [facility] APTT 2022-05-26 06:27:00 E[facility]rain [facility] CBC W/PLT COUNT & AUTO 2022-05-26 06:27:00 Rick, [facility] APTT 2022-05-26 00:28:00 [facility] [place] APTT 2022-05-25 22:25:00 Efrain, [facility] APTT 2022-05-25 14:41:00 Efrain, [facility] APTT 2022-05-25 12:13:00 [place] BASIC METABOLIC PANEL 2022-05-25 07:29:00 Jakob [facility] MAGNESIUM 2022-05-25 07:29:00 [facility] 2022-05-25 06:42:59 Robert, [facility] ECG 12-LEAD 2022-05-25 06:42:59 Unknown, Hl7 [facility] APTT 2022-05-25 05:57:00 [place], [facility] APTT 2022-05-25 04:47:00 Efrain, [facility] CBC W/PLT COUNT & AUTO 2022-05-25 03:20:00 Rick, [facility] PROTHROMBIN TIME/INR 2022-05-25 03:20:00 Rick, [facility] APTT 2022-05-25 03:20:00 Meaghan [facility] CBC W/PLT COUNT & AUTO 2022-05-25 03:20:00 Rick, [facility] APTT 2022-05-24 20:02:00 [place], [facility] APTT 2022-05-24 17:36:00 Efrain, [facility] APTT 2022-05-24 10:31:00 Rick, [facility] APTT 2022-05-24 03:41:00 [place], [facility] APTT 2022-05-24 01:14:00 Efrain, [facility] CBC W/PLT COUNT & AUTO 2022-05-24 01:14:00 Rick, [facility] BASIC METABOLIC PANEL 2022-05-24 01:14:00 Rick, [facility] MAGNESIUM 2022-05-24 01:14:00 Rick, [facility] PHOSPHORUS 2022-05-24 01:14:00 Rick, [facility] [facility] PROTHROMBIN TIME/INR 2022-05-24 01:14:00 Rick, [facility] CBC W/PLT COUNT & AUTO 2022-05-24 01:14:00 Rick, [facility] APTT 2022-05-23 18:18:00 Latasha [facility] APTT 2022-05-23 16:11:00 Latasha [facility] APTT 2022-05-23 08:24:00 Latasha [facility] CBC W/PLT COUNT & AUTO 2022-05-23 04:23:00 Rick, [facility] BASIC METABOLIC PANEL 2022-05-23 04:23:00 Rick, [facility] MAGNESIUM 2022-05-23 04:23:00 Rick, [facility] PHOSPHORUS 2022-05-23 04:23:00 Rick, [facility] PROTHROMBIN TIME/INR 2022-05-23 04:23:00 Rick, [facility] APTT 2022-05-23 04:23:00 Efrain [facility] CBC W/PLT COUNT & AUTO 2022-05-23 04:23:00 Rick, [facility] APTT 2022-05-22 20:49:00 Efrain, [facility] HEMOGLOBIN AND HEMATOCRIT 2022-05-22 17:54:00 Rick, [facility] APTT 2022-05-22 13:59:00 Efrain [facility] CBC W/PLT COUNT & AUTO 2022-05-22 02:47:00 Rick, [facility] BASIC METABOLIC PANEL 2022-05-22 02:47:00 Rick, [facility] MAGNESIUM 2022-05-22 02:47:00 Rick, [facility] PHOSPHORUS 2022-05-22 02:47:00 Rick, [facility] PROTHROMBIN TIME/INR 2022-05-22 02:47:00 [facility] 2022-05-22 02:47:00 SerBertrand willoughby [facility] Verterra [facility] CBC W/PLT COUNT & AUTO 2022-05-22 02:47:00 Rick [facility] PREPARE RBC 2022-05-21 23:54:00 Vinayak Cook [facility] HEMOGLOBIN AND HEMATOCRIT 2022-05-21 21:35:00 Rick, [facility] PROTHROMBIN TIME/INR 2022-05-21 14:45:00 Rick, [facility] APTT 2022-05-21 14:45:00 Efrain [facility] 2D ECHO W/ DOPPLER 2022-05-21 13:06:46 Vitaly Flores [facility] (CW/PW/COLOR) [facility] HEMOGLOBIN AND HEMATOCRIT 2022-05-21 12:50:00 Rick [facility] TSH/FREE T4 IF INDICATED 2022-05-21 12:50:00 Efrain [facility] APTT 2022-05-21 08:34:00 Efrain [facility] CBC W/PLT COUNT & AUTO 2022-05-21 05:00:00 Rick [facility] BASIC METABOLIC PANEL 2022-05-21 05:00:00 Rick, [facility] MAGNESIUM 2022-05-21 05:00:00 Rick, [facility] PHOSPHORUS 2022-05-21 05:00:00 Rick, [facility] CBC W/PLT COUNT & AUTO 2022-05-21 05:00:00 Rick, [facility] PROTHROMBIN TIME/INR 2022-05-21 01:15:00 Rick, [facility] APTT 2022-05-21 01:15:00 Efrain [facility] HEMOGLOBIN AND HEMATOCRIT 2022-05-20 20:25:00 RickKatarina hsu [facility] PROTHROMBIN TIME/INR 2022-05-20 17:07:00 Rick, [facility] APTT 2022-05-20 17:07:00 LynnetteDariond Resnick [facility] HEMOGLOBIN AND HEMATOCRIT 2022-05-20 13:03:00 [facility] 2022-05-20 13:02:00 Lynnette [facility] TRANSFUSE LEUKO-REDUCED 2022-05-20 08:38:00 Damir oJyce [facility] RED BLOOD CELLS Center PREPARE RBC 2022-05-20 08:19:00 AdhiVinayak [facility] APTT 2022-05-20 05:03:00 Efrain [facility] CBC W/PLT COUNT & AUTO 2022-05-20 03:36:00 Rick [facility] BASIC METABOLIC PANEL 2022-05-20 03:36:00 Rick [facility] MAGNESIUM 2022-05-20 03:36:00 Rick [facility] PHOSPHORUS 2022-05-20 03:36:00 Rick [facility] PROTHROMBIN TIME/INR 2022-05-20 03:36:00 Rick [facility] CBC W/PLT COUNT & AUTO 2022-05-20 03:36:00 Rick [facility] APTT 2022-05-19 22:59:00 [place] [facility] HEMOGLOBIN AND HEMATOCRIT 2022-05-19 21:17:00 Rick [facility] PROTHROMBIN TIME/INR 2022-05-19 17:05:00 Rick, [facility] APTT 2022-05-19 17:05:00 Efrain [facility] HEMOGLOBIN AND HEMATOCRIT 2022-05-19 12:11:00 Katarina Cabrera [facility] PROTHROMBIN TIME/INR 2022-05-19 12:11:00 Shanelle Zuniga [facility] Gisele [facility] ECG 12-LEAD 2022-05-19 11:39:33 SandraVitaly dickinsonVivian [facility] ECG 12-LEAD 2022-05-19 11:39:33 Unknown, Hl7 [facility] POCT-GLUCOSE METER 2022-05-19 05:28:00 Shadi Church [facility] Emilio [facility] CBC W/PLT COUNT & AUTO 2022-05-19 03:08:00 Rick, [facility] DIFFERENTIAL [facility] CBC W/PLT COUNT & AUTO 2022-05-19 03:08:00 Rick [facility] DIFFERENTIAL [facility] BASIC METABOLIC PANEL 2022-05-19 03:07:00 Rick [facility] MAGNESIUM 2022-05-19 03:07:00 Rick, [facility] PHOSPHORUS 2022-05-19 03:07:00 Rick, [facility] PROTHROMBIN TIME/INR 2022-05-19 03:07:00 Rick [facility] POCT-GLUCOSE METER 2022-05-18 23:02:00 Vinayak Cook [facility] ECG 12-LEAD 2022-05-18 21:08:01 [facility] ECG 12-LEAD 2022-05-18 21:08:01 Unknown, Hl7 Doctor [facility] BUN AND CREATININE 2022-05-18 20:38:00 [facility] W/RATIO [facility] POTASSIUM 2022-05-18 20:38:00 [facility] MAGNESIUM 2022-05-18 20:38:00 [facility] HEMOGLOBIN AND HEMATOCRIT 2022-05-18 20:01:00 Katarina Cabrera [facility] POCT-GLUCOSE METER 2022-05-18 18:56:00 Adhi, Vinayak Nathan [facility] CTA ABDOMEN & PELVIS 2022-05-18 17:42:00 Rick, [facility] URINALYSIS W/ REFLEX 2022-05-18 15:23:00 Rick, [facility] URINE CULTURE Center PROTHROMBIN TIME/INR 2022-05-18 15:23:00 Rick, [facility] HIGH SENSITIVITY TROPONIN 2022-05-18 15:23:00 [facility], [facility] URINE CULTURE 2022-05-18 15:23:00 Rick, [facility] CBC (HEMOGRAM ONLY) 2022-05-18 13:05:00 [facility], [facility] CALCIUM, IONIZED 2022-05-18 13:05:00 Rick, [facility] POCT-GLUCOSE METER 2022-05-18 12:55:00 Sean Graham [facility] Jesus Alberto Center ABORH, MANUAL 2022-05-18 11:55:00 Floridalma Monsalve [facility] TYPE AND SCREEN, 2022-05-18 11:02:00 Rick, [facility] AUTOMATED [facility] COMPREHENSIVE METABOLIC 2022-05-18 11:01:00 Rick, [facility] PANEL Center MAGNESIUM 2022-05-18 11:01:00 Rick, [facility] PHOSPHORUS 2022-05-18 11:01:00 Rick, [facility] LACTIC ACID, VENOUS 2022-05-18 11:01:00 Rick, [facility] LIPASE 2022-05-18 11:01:00 Rick, [facility] B-TYPE NATRIURETIC FACTOR 2022-05-18 11:01:00 Rick, [facility] ([facility]NP) [facility] PT/APTT 2022-05-18 11:00:00 Rick, [facility] FIBRINOGEN 2022-05-18 11:00:00 Rick, [facility] ECG 12-LEAD 2022-05-18 10:34:14 Katarina Cabrera [facility] ECG 12-LEAD 2022-05-18 10:34:14 Unknown, Hl7 Doctor [facility] HB ECG ROUTINE & RHYTHM 2022-05-10 17:51:31 Wayne Rabago [facility] STRIP Medical Branch PROTHROMBIN TIME / INR 2022-05-09 16:24:[address] [facility] [place] CONSENT/REFUSAL FOR 2022-05-09 16:13:00 Doctor Unassigned, No [facility] [place] [facility] Name Medical Branch ASSIGNMENT OF BENEFITS 2022-05-09 16:12:36 Doctor Unassigned, No [facility] Name Medical Branch ASSIGNMENT OF BENEFITS 2022-05-09 16:12:36 Doctor Unassigned, No [facility] Medical Branch PROTHROMBIN TIME / INR 2022-04-11 15:46:[address] [facility] Medical [place] CONSENT/REFUSAL FOR 2022-04-11 15:36:05 Doctor Unassigned, No [facility] [place] [facility] Name Medical Branch ASSIGNMENT OF BENEFITS 2022-04-11 15:35:52 Doctor Unassigned, No [facility] Medical Branch ASSIGNMENT OF BENEFITS 2022-04-11 15:35:52 Doctor Unassigned, No [facility] Medical Branch MEDICATION CORRESPONDENCE 2022-03-18 06:01:00 Doctor Unassigned, No [facility] Medical Branch PROTHROMBIN TIME / INR 2022-03-14 15:29:[address] [facility] [place] CONSENT/REFUSAL FOR 2022-03-14 15:15:12 Doctor Unassigned, No [facility] [place] [facility] Name Medical Branch ASSIGNMENT OF BENEFITS 2022-03-14 15:15:00 Doctor Unassigned, No [facility] Name Medical Branch ASSIGNMENT OF BENEFITS 2022-03-14 15:15:00 Doctor Unassigned, No [facility] Medical Branch CONSENT/REFUSAL FOR 2022-02-28 18:42:52 Doctor Unassigned, No [facility] [place] [facility] Name Medical Branch CONSENT/REFUSAL FOR 2022-02-14 14:32:17 Doctor [facility]igned, No [facility] [place] ASSIGNMENT OF BENEFITS 2022-02-14 14:32:04 Doctor Unassigned, No [facility] ASSIGNMENT OF BENEFITS 2021-12-14 17:04:14 Doctor Unassigned, No [facility] HOSPITAL ADMISSION 2021-11-23 05:01:00 Doctor Unassigned, No [facility] Plan of Care Planned Activity [...] [facility] Test 00:00:00 (Season Ended) [code = [facility] INFLUENZA VACCINE (Season Ended)] Future Scheduled [...] breast Medical C enter (procedure) [code = 436854517] Future Scheduled 1953 CT Colonography (combo) [facility] Test 00:00:00 [code = CT Colonography [facility] (combo)] Future Scheduled 1953 Screening for malignant [facility] Test 00:00:00 neoplasm of colon Medical Ce nter (procedure) [code = 689102775] Future Scheduled 1953 Screening for malignant [facility] Test 00:00:00 neoplasm of colon Medical Ce nter (procedure) [code = 182780873] Future Scheduled 1953 DXA SCAN [code = DXA [facility] Test 00:00:00 SCAN] [facility] Future Scheduled 1953 Screening for malignant [facility] Test 00:00:00 neoplasm of colon Medical Ce nter (procedure) [code = 522526393] Future Scheduled 1953 Screening for malignant [facility] Test 00:00:00 neoplasm of colon Medical Ce nter (procedure) [code = 531119458] Future Scheduled 1953 Sigmoidoscopy [code = [facility]00 S[facility]oscopy] [facility] Future Scheduled 1953 Screening for malignant [facility] Test 00:00:00 neoplasm of breast Medical C enter (procedure) [code = 211563934] Future Scheduled 1953 CT Colonography (combo) [facility] Test 00:00:00 [code = CT Colonography [facility] (combo)] Future Scheduled 1953 Screening for malignant [facility] Test 00:00:00 neoplasm of colon Medical Ce nter (procedure) [code = 889403051] Future Scheduled 1953 Screening for malignant [facility] Test 00:00:00 neoplasm of colon Medical Ce nter (procedure) [code = 317402322] Future Scheduled 1953 DXA SCAN [code = DXA [facility] Test 00:00:00 SCAN] [facility] Future Scheduled 1953 Screening for malignant [facility] Test 00:00:00 neoplasm of colon Medical Ce nter (procedure) [code = 158717058] Future Scheduled 1953 Screening for malignant [facility] Test 00:00:00 neoplasm of colon Medical Ce nter (procedure) [code = 643919624] Future Scheduled 1953 Sigmoidoscopy [code = [facility] 00:00:00 S[facility]oscopy] [facility] Future Scheduled 1953 Screening for malignant [facility] Test 00:00:00 neoplasm of breast Medical C enter (procedure) [code = 038761921] Future Scheduled 1953 CT Colonography (combo) [facility] Test 00:00:00 [code = CT Colonography [facility] (combo)] Future Scheduled 1953 Screening for malignant [facility] Test 00:00:00 neoplasm of colon Medical Ce nter (procedure) [code = 284504420] Future Scheduled 1953 Screening for malignant [facility] Test 00:00:00 neoplasm of colon Medical Ce nter (procedure) [code = 405879095] Future Scheduled 1953 DXA SCAN [code = DXA [facility] Test 00:00:00 SCAN] [facility] Future Scheduled 1953 Screening for malignant [facility] Test 00:00:00 neoplasm of colon Medical Ce nter (procedure) [code = 406095433] Future Scheduled 1953 Screening for malignant [facility] Test 00:00:00 neoplasm of colon Medical Ce nter (procedure) [code = 520810091] Future Scheduled 1953 Sigmoidoscopy [code = [facility] 00:00:00 Sigmoidoscopy] [facility] Future Scheduled 1953 Screening for malignant [facility] Test 00:00:00 neoplasm of breast Medical C enter (procedure) [code = 594876366] Future Scheduled 1953 CT Colonography (combo) [facility] Test 00:00:00 [code = CT Colonography [facility] (combo)] Future Scheduled 1953 Screening for malignant [facility] Test 00:00:00 neoplasm of colon Medical Ce nter (procedure) [code = 252187041] Future Scheduled 1953 Screening for malignant [facility] Test 00:00:00 neoplasm of colon Medical Ce nter (procedure) [code = 259643280] Future Scheduled 1953 DXA SCAN [code = DXA [facility] Test 00:00:00 SCAN] [facility] Future Scheduled 1953 Screening for malignant [facility] Test 00:00:00 neoplasm of colon Medical Ce nter (procedure) [code = 248528239] Future Scheduled 1953 Screening for malignant [facility] Test 00:00:00 neoplasm of colon Medical Ce nter (procedure) [code = 034036330] Future Scheduled 1953 Sigmoidoscopy [facility]code = [facility] Future [facility] 1953 Screening for malignant [facility] Test 00:00:00 neoplasm of breast Medical C enter (procedure) [code = 914561214] Future Scheduled 1953 CT Colonography (combo) [facility] Test 00:00:00 [code = CT Colonography [facility] (combo)] Future Scheduled 1953 Screening for malignant [facility] Test 00:00:00 neoplasm of colon Medical Ce nter (procedure) [code = 043426176] Future Scheduled 1953 Screening for malignant [facility] Test 00:00:00 neoplasm of colon Medical Ce nter (procedure) [code = 475724100] Future Scheduled 1953 DXA SCAN [code = DXA [facility] Test 00:00:00 SCAN] [facility] Future Scheduled 1953 Screening for malignant [facility] Test 00:00:00 neoplasm of colon Medical Ce nter (procedure) [code = 643901656] Future Scheduled 1953 Screening for malignant [facility] Test 00:00:00 neoplasm of colon Medical Ce nter (procedure) [code = 854321740] Future Scheduled 1953 Sigmoidoscopy [code = [facility] 00:[facility] S[facility]oscopy] [facility] Cent[facility] r Future Scheduled 1953 Screening for malignant [facility] Test 00:00:00 neoplasm of breast Medical C enter (procedure) [code = 578805109] Future Scheduled 1953 CT Colonography (combo) [facility] Test 00:00:00 [code = CT Colonography [facility] (combo)] Future Scheduled 1953 Screening for malignant [facility] Test 00:00:00 neoplasm of colon Medical Ce nter (procedure) [code = 306899120] Future Scheduled 1953 Screening for malignant [facility] Test 00:00:00 neoplasm of colon Medical Ce nter (procedure) [code = 637567238] Future Scheduled 1953 DXA SCAN [code = DXA [facility] Test 00:00:00 SCAN] [facility] Future Scheduled 1953 Screening for malignant [facility] Test 00:00:00 neoplasm of colon Medical Ce nter (procedure) [code = 822983781] Future Scheduled 1953 Screening for malignant [facility] Test 00:00:00 neoplasm of colon Medical Ce nter (procedure) [code = 444939840] Future Scheduled 1953 Sigmoidoscopy [code = [facility] 00:00:00 Sigmoidoscopy] [facility] Future Scheduled 1953 Screening for malignant [facility] Test 00:00:00 neoplasm of breast Medical C enter (procedure) [code = 930488614] Future Scheduled 1953 CT Colonography (combo) [facility] Test 00:00:00 [code = CT Colonography [facility] (combo)] Future Scheduled 1953 Screening for malignant [facility] Test 00:00:00 neoplasm of colon Medical Ce nter (procedure) [code = 113642304] Future Scheduled 1953 Screening for malignant [facility] Test 00:00:00 neoplasm of colon Medical Ce nter (procedure) [code = 181856536] Future Scheduled 1953 DXA SCAN [code = DXA [facility] Test 00:00:00 SCAN] [facility] Future Scheduled 1953 Screening for malignant [facility] Test 00:00:00 neoplasm of colon Medical Ce nter (procedure) [code = 247564146] Future Scheduled 1953 Screening for malignant [facility] Test 00:00:00 neoplasm of colon Medical Ce nter (procedure) [code = 223769487] Future Scheduled 1953 Sigmoidoscopy [code [facility] 1953 Screening for malignant [facility] Test 00:00:00 neoplasm of breast Medical C enter (procedure) [code = 608582446] Future Scheduled 1953 CT Colonography (combo) [facility] Test 00:00:00 [code = CT Colonography [facility] (combo)] Future Scheduled 1953 Screening for malignant [facility] Test 00:00:00 neoplasm of colon Medical Ce nter (procedure) [code = 572523816] Future Scheduled 1953 Screening for malignant [facility] Test 00:00:00 neoplasm of colon Medical Ce nter (procedure) [code = 264475655] Future Scheduled 1953 DXA SCAN [code = DXA [facility] Test 00:00:00 SCAN] [facility] Future Scheduled 1953 Screening for malignant [facility] Test 00:00:00 neoplasm of colon Medical Ce nter (procedure) [code = 804524307] Future Scheduled 1953 Screening for malignant [facility] Test 00:00:00 neoplasm of colon Medical Ce nter (procedure) [code = 192501855] Future Scheduled 1953 Sigmoidoscopy [code [facility] 00:[facility] S[facility]oscopy] Medical Cente r Encounters Start End Encounter Admission Attending Care Care Encounter Source Date/Time Date/Time Type Type Clinicians Facility Department ID 2022-09-13 Outpatient IBRAHIM, STLMLC [facility] [id number] Common 13:24:[id number] [facility] 2022-08-16 Outpatient IBRAHIM, STLMLC [facility] [id number] Common 12:00:[id number] [facility] 2022-08-15 Outpatient IBRAHIM, STLMLC [facility] [id number] Common 15:12:[id number] [facility] 2022-08-14 Outpatient Dobson, STLMLC [facility] [id number] Common 08:50:[id number] [facility] 2022-06-05 Inpatient R MARIIA CARDONA [facility] [id number] Univers 07:56:00 MARIIA CARDONA jake [facility] 2021-11-20 Inpatient R REBECA HOLCOMB [facility] [id number] Univers 15:24:28 REBECA HOLCOMB i ty [facility] 2021-09-21 Outpatient Dobson, STLMLC [facility] [id number] Common 10:27:[id number] [facility] 2023-02-28 2023-02-28 Outpatient R SY, [facility] [id number] Univers 11:20:00 11:20:00 [place] perez o f [facility] 2022-11-08 2022-11-08 Outpatient R SEWANI, [facility] [id number] Univers 08:00:00 08:00:00 WAYNE ity of [facility] 2022-10-04 2022-10-04 Telephone [facility] [id number] Univers 00:00:00 00:00:00 [place] ARANDA [id number] [id number] [phone] Pa dical NAL [address] [place] [address] 2022-10-04 2022-10-04 Telephone [facility] [id number] Univers 00:00:00 00:00:00 [place] ARANDA [id number] [id number] [phone] Pa dical NAL [address] [place] [address] 2022-09-26 2022-09-27 Outpatient R SY, [facility] [id number] Univers 10:00:00 13:19:48 [place] perez o f [facility] 2022-09-26 2022-09-26 [facility] [id number] Univers 10:00:00 10:10:00 Visit [place] ARANDA [id number] [id number] [phone] Pa dical NAL 9 [facility] 2022-09-26 2022-09-26 Legal Billing Analyst Farnaz, Adc Lab Main [facility] 1.2.8 40.114 [id number] Univers 09:45:00 10:00:00 Visit Yolande Santacruz [id number] [id number] [id number] Pa dical NAL 353 [facility] 2022-09-26 2022-09-26 Telephone [facility] [id number] Univers 00:00:00 00:00:00 Qiajuan [place] [id number] it[id number] [phone] Pa dical NAL 9 [facility] 2022-08-29 2022-08-29 Telephone [facility] [id number] Univers 00:00:00 00:00:00 Qiamerjun [place] [id number] [id number] [phone] [facility] NAL [address] [place] [address] 2022-08-29 2022-08-29 [facility] [id number] Univers 00:00:00 00:00:00 [place] [id number] [id number] [phone] [address] 2022-08-28 2022-08-28 [facility] [id number] Univers 15:40:00 16:40:51 [place] perez o f [facility] 2022-08-28 2022-08-28 Office [facility] [id number] Univers 15:40:00 16:40:51 Visit [place] ARANDA [id number] [id number] [phone] Pa dical NAL [address] [place] [address] 2022-08-28 2022-08-28 Legal Billing Analyst Farnaz, Andre Lab Main [facility] 1.2.8 40.114 [id number] Univers 13:30:00 13:45:00 Visit [place] Dan [id number] [id number] [phone] Pa dical NAL 353 [facility] 2022-08-28 2022-08-28 Office [facility] [id number] Univers 13:00:00 13:27:01 Visit [place] ARANDA [id number] [facility] [id number] [phone] Pa dical NAL 059 [facility] 2022-08-23 2022-08-23 Orders Doctor JOHANN [id number] Univers 00:00:00 00:00:00 Only Unassigned, MIKE 350.1.13.10 ity of [place] [facility] 4.2.7.2.686 Babak as [phone] [facility] [address] [place] 2022-08-22 2022-08-22 Telephone [facility] [id number] Univers 00:00:00 00:00:00 [place] ARANDA [id number] ity of [id number] [phone] Pa dical NAL 059 [facility] 2022-08-01 2022-08-01 Outpatient R [facility] [id number] Univers 10:11:06 23:59:00 JOSEPH ity of [facility] 2022-08-01 2022-08-01 [facility] 1.2.840.114 [id number] Univers 10:11:06 23:59:00 Encounter Joseph ARANDA 350.1.13.10 [facility] [id number] [id number] [facility] [address] [place] 2022-08-01 2022-08-01 Office [facility] [id number] Univers 15:50:00 16:00:00 Visit [place] ARANDA 350.1.13.10 ity of [place] [phone] Pa dical NAL 059 [facility] 2022-08-01 2022-08-01 Legal Billing Analyst Farnaz, Adc Lab Main [facility] 1.2.8 40.114 [id number] Univers 11:00:00 11:15:00 Visit Sy [place] ARANDA [id number] [place] [phone] Pa dical NAL 353 [facility] 2022-08-01 2022-08-01 [facility] [id number] Univers 00:00:00 00:00:00 [place] ROSI [id number] [place] [phone] Pa dical NAL 059 [facility] 2022-07-31 2022-07-31 [facility] 1.2.529.207 [id number] Univers 00:00:00 00:00:00 Catrinamerzaheer ARANDA 350.1.13.10 ity of [place].2.7.2.[place] [id number] Pa dical NAL 059 [facility] 2022-07-10 2022-07-10 Office Sy, 1.2.840.0 [id number] Univers 13:00:00 14:24:58 Visit [place] 26070.1.1 ity of 3.104.2.7 [place] .3.599402 Medica l .8 [place] 2022-07-10 2022-07-10 [facility] [id number] Univers 13:00:00 13:00:00 [place] ity o f [facility] 2022-07-10 2022-07-10 Legal Billing Analyst [place] Dan 1.2.840.1 [id number] Univers 10:00:00 10:15:00 Visit Farnaz, Adc Lab Main 46895.1.1 ity of 3.104.2.7 [place] .3.524860 Medica l .8 [place] 2022-07-10 2022-07-10 Orders Doctor 1.2.840.2 [id number] Univers 00:00:00 00:00:00 Only Unassigned, 58726.1.1 ity of [place] 3.104.2.7 [place] .3.321491 Medica l .8 Branch 2022-07-10 2022-07-10 Telephone Sy, 1.2.840.9 [id number] Univers 00:00:00 00:00:00 Catrinajuan 29484.1.1 ity of 3.104.2.7 [place] .3.082443 Medica l .8 [place] 2022-06-25 2022-06-25 Outpatient R SY, [facility] [id number] Univers 15:40:00 16:09:43 [place] ity o f [facility] 2022-06-25 2022-06-25 Office Sy, 1.2.840.5 [id number] 47999 4593 [facility] 15:40:00 16:09:43 Visit [place] 45065.1.1 ity of 3.104.2.7 [place] .3.829275 Medica l .8 [place] 2022-06-25 2022-06-25 Legal Billing Analyst Sy, [place] 1.2.840.1 [id number] Univers 11:45:00 12:00:00 Visit Farnaz, [facility] Lab Main 13034.1.1 ity of 3.104.2.7 [place] .3.780547 Medica l .8 Branch 2022-06-25 2022-06-25 Office Sy, 1.2.840.1 [id number] Univers 11:20:00 11:20:00 Visit [place] 42923.1.1 ity of 3.104.2.7 [place] .3.345817 Medica l .8 Branch 2022-06-25 2022-06-25 Telephone Sy, 1.2.840.1 [id number] Univers 00:00:00 00:00:00 [place] 56414.1.1 ity of 3.104.2.7 [place] .3.541066 Medica l .8 Branch 2022-06-25 2022-06-25 Travel 1.2.840.1 1.2.183.571 [id number] [id number] Univers 00:00:00 00:00:00 19864.1.1 350.1.13.10 ity of 3.104.2.7 4.2.7.3.698 [place] .3.576107 084.8 Medica l .8 Branch 2022-06-13 2022-06-13 Transition Isaak, 1.2.840.1 [id number] Univers 00:00:00 00:00:00 of Care Jeremy Ricardo 61692.1.1 it y of 3.104.2.7 [place] .3.033285 Medica l .8 Branch 2022-06-06 2022-06-12 Inpatient R KIRK JACIPRANAVCARTERMALA [facility] [id number] Univers 17:19:00 12:24:00 KIRK HEMMARIIA SIMS ity of [facility] 2022-06-06 2022-06-12 Hospital Al Hemyari, 1.2.840.3 [id number] Univers 17:19:00 12:24:00 Encounter Mariia 91781.1.1 it y of 3.104.2.7 [place] .3.291514 Medica l .8 Branch 2022-06-06 2022-06-06 Legal Billing Analyst [place] Dan 1.2.840.1 [id number] Univers 10:15:00 10:30:00 Visit Farnaz, [facility] Lab Main 22158.1.1 ity of [place], [place] 3.104.2.7 [place] .3.430195 Medica l .8 Branch 2022-06-06 2022-06-06 Telephone Sy 1.2.840.1 [id number] Univers 00:00:00 00:00:00 [place] 38239.1.1 ity of 3.104.2.7 [place] .3.989119 Medica l .8 Branch 2022-06-06 2022-06-06 Travel 1.2.840.1 1.2.523.496 [id number] [id number] Univers 00:00:00 00:00:00 70834.1.1 350.1.13.10 ity of 3.104.2.7 4.2.7.3.698 [place] .3.638925 084.8 Medica l .8 Branch 2022-06-05 2022-06-05 Telephone Sewani, 1.2.840.6 [id number] 100 [id number] Univers 00:00:00 00:00:00 Wayne 94839.1.1 ity of 3.104.2.7 [place] .3.188251 Medica l .8 Branch 2022-05-29 2022-05-29 Telephone Sewani, 1.2.840.2 [id number] 100 [id number] Univers 00:00:00 00:00:00 Wayne 68802.1.1 ity of 3.104.2.7 [place] .3.054845 Medica l .8 Branch 2022-05-18 2022-05-27 Inpatient ER RUBÉN [facility] Medical ICU [id number] [facility] 08:42:00 16:40:00 MEAGHAN 2022-05-18 2022-05-27 Hospital ER Sean Graham [facility] [id number] [facility] 08:42:00 16:40:00 Encounter Vinay[facility], Franc Calles [facility], Purnima Diane, Meaghan Leyva 2022-05-19 2022-05-19 Travel [facility] [id number] [facility] 00:00:[facility] 00:00:00 [facility] 2022-05-18 2022-05-18 Orders [facility] [id number] 00:00:00 00:00:00 Only [facility] 2022-05-18 2022-05-18 Telephone Santos [facility] [id number] 00:00:00 00:00:00 Sean cheema [facility] 2022-05-10 2022-05-10 Outpatient R HIMA, [facility] [id number] Univers 11:40:00 12:05:03 WAYNE ity of [facility] 2022-05-10 2022-05-10 Office [facility], 1.2.840.0 [id number] Univers 11:40:00 12:05:03 Visit Wayne 84404.1.1 ity of 3.104.2.7 [place] .3.758185 Medica l .8 [place] 2022-05-10 2022-05-10 Travel 1.2.840.1 1.2.672.014 [id number] [id number] Univers 00:00:00 00:00:00 68964.1.1 350.1.13.10 ity of 3.104.2.7 4.2.7.3.698 [place] .3.572040 084.8 Medica l .8 [place] 2022-05-09 2022-05-09 Legal Billing Analyst [place] 1.2.840.1 [id number] Univers 10:30:00 10:45:00 Visit Pob, Adc Lab Main 56136.1.1 ity of 3.104.2.7 [place] .3.737173 Medica l .8 [place] 2022-05-09 2022-05-09 Outpatient R SY [facility] [id number] Univers 10:30:00 10:30:00 [place] scotty o f [facility] 2022-05-09 2022-05-09 Orders Doctor 1.2.840.1 [id number] Univers 00:00:00 00:00:00 Only Unassigned, 66835.1.1 ity of [place] 3.104.2.7 [place] .3.048089 Medica l .8 [place] 2022-05-09 2022-05-09 Telephone Sy 1.2.840.7 [id number] Univers 00:00:00 00:00:00 [place] 55992.1.1 ity of 3.104.2.7 [place] .3.563696 Medica l .8 [place] 2022-04-12 2022-04-12 Outpatient Joan RABAGO [facility] [id number] Univers 11:00:00 11:00:00 WAYNE ity of [facility] 2022-04-12 2022-04-12 Outpatient [facility] [id number] Univers 11:00:00 11:00:00 WAYNE ity of [facility] 2022-04-11 2022-04-11 Legal Billing Analyst [place] 1.2.840.1 [id number] Univers 09:45:00 10:00:00 Visit Andre Osei Lab Main 52065.1.1 ity of 3.104.2.7 [place] .3.235717 Medica l .8 [place] 2022-04-11 2022-04-11 Outpatient R SY, [facility] [id number] Univers 09:45:00 09:45:00 QIAJUAN ity o f [facility] 2022-04-11 2022-04-11 Orders Doctor 1.2.840.1 [id number] Univers 00:00:00 00:00:00 Only Unassigned, 83537.1.1 ity of [place] 3.104.2.7 [place] .3.476814 Medica l .8 [place] 2022-04-11 2022-04-11 Telephone Sy, 1.2.840.8 [id number] [id number] Univers 00:00:00 00:00:00 Qiangzaheer 25823.1.1 ity of 3.104.2.7 [place] .3.142946 Medica l .8 [place] 2022-03-30 2022-03-30 Refill Sy, 1.2.840.4 [id number] Univers 00:00:00 00:00:00 Jmaaica 28445.1.1 ity of 3.104.2.7 [place] .3.376142 Medica l .8 [place] 2022-03-15 2022-03-15 Telephone Sewani, 1.2.840.4 [id number] [id number] Univers 00:00:00 00:00:00 Wayne 28514.1.1 ity of 3.104.2.7 [place] .3.361081 Medica l .8 [place] 2022-03-14 2022-03-14 Legal Billing Analyst [place] 1.2.840.1 [id number] Univers 09:30:00 09:45:00 Visit Andre Osei Lab Main 66164.1.1 ity of 3.104.2.7 [place] .3.264248 Medica l .8 [place] 2022-03-14 2022-03-14 Outpatient R SY, [facility] [id number] Univers 09:30:00 09:30:00 [place] scotty o f [facility] 2022-03-14 2022-03-14 Orders Doctor 1.2.840.7 [id number] Univers 00:00:00 00:00:00 Only Unassigned, 68978.1.1 ity of [place] 3.104.2.7 [place] .3.053305 Medica l .8 [place] 2022-03-14 2022-03-14 Telephone Sy, 1.2.840.0 [id number] Univers 00:00:00 00:00:00 Rogerjun 53458.1.1 ity of 3.104.2.7 [place] .3.912948 Medica l .8 [place] 2022-02-28 2022-02-28 Legal Billing Analyst 1, Adc Lab [facility] 1.2.840.114 [id number] Univers 13:30:00 13:45:00 Visit [place] Dan 350.1.13.10 [facility] 4.2.7.2.686 [facility] [phone] [address] 2022-02-28 2022-02-28 Outpatient R SY, [facility] [id number] Univers 13:00:00 13:20:24 ROGERZAHEER ana o [facility] 2022-02-28 2022-02-28 Office Sy, [facility] 1.2.840.114 [id number] Univers 13:00:00 13:20:24 Visit [place] ARANDA 350.1.13.10 [facility] 4.2.7.2.686 [facility] [phone] Pa dical NAL 059 [facility] 2022-02-28 2022-02-28 Outpatient R SY, [facility] [id number] Univers 13:00:00 13:00:00 [place] perez o f [facility] 2022-02-28 2022-02-28 Outpatient R SY, [facility] [id number] Univers 13:00:00 13:00:00 [place] scotty o f [facility] 2022-02-28 2022-02-28 Outpatient R SY [facility] [id number] Univers 13:00:00 13:00:00 [place] scotty o f [facility] 2022-02-28 2022-02-28 Orders Doctor JOHANN 1.2.840.114 [id number] Univers 00:00:00 00:00:00 Only Unassigned, MIKE 350.1.13.10 ity of [place] [facility] 4.2.7.2.686 Babak as [phone] [address] 2022-02-28 2022-02-28 Telephone [facility] 1.2.865.036 [id number] Univers 00:00:00 00:00:00 [place] ARANDA 350.1.13.10 it[facility] 4.2.7.2.[place] [phone] Pa dical NAL 059 [facility] 2022-02-14 2022-02-14 Legal Billing Analyst Farnaz, Adc Lab Main [facility] 1.2.8 40.114 [id number] Univers 09:45:00 10:00:00 Visit [place] Dan 350.1.13.10 ity of [place] 4.2.7.2.686 [place] [phone] Pa dical NAL 353 [facility] 2022-02-14 2022-02-14 Outpatient R SY [facility] [id number] Univers 09:45:00 09:45:00 [place] scottjake o f [facility] 2022-02-14 2022-02-14 Orders Doctor JOHANN 1.2.840.114 [id number] Univers 00:00:00 00:00:00 Only Unassigned, MIKE 350.1.13.10 ity of [place] [facility] 4.2.7.2.686 Babak as [phone] [address] 2022-02-14 2022-02-14 Telephone [facility] 1.2.516.852 [id number] Univers 00:00:00 00:00:00 Qiangjun [place] 350.1.13.10 ity of [place] 4.2.7.2.686 [place] [phone] Pa natasha BURGESS 9 [facility] 2022-02-13 2022-02-13 Refill [facility] 1.2.840.114 [id number] Univers 00:00:00 00:00:00 Qiamerzaheer [place] 350.1.13.10 ity of [place] 4.2.7.2.686 [place] [phone] [facility] ADITYA [address] [place] [address] 2022-01-27 2022-01-27 Telephone [facility] 1.2.043.343 [id number] Univers 00:00:00 00:00:00 Qiamerzaheer [place] 350.1.13.10 ity of [place] 4.2.7.2.686 [place] [phone] Pa richaut ADITYA [address] [place] [address] 2022-01-25 2022-01-25 Legal Billing Analyst Farnaz, Adc Lab Main [facility] 1.2.8 40.114 [id number] Univers 08:45:00 09:00:00 Visit [place] Dan 350.1.13.10 ity of [place] 4.2.7.2.686 [place] [phone] [facility] B[facility] [address] [place] [address] 2022-01-25 2022-01-25 Outpatient R [facility] [id number] Univers 08:45:00 08:45:00 [place] perez o f [facility] 2022-01-19 2022-01-19 Legal Billing Analyst Farnaz, Adc Lab Main [facility] 1.2.8 40.114 [id number] Univers 12:30:00 12:45:00 Visit [place] DanTON 350.1.13.10 ity of [place] 4.2.7.2.686 [place] [phone] Pa natasha [address] 2022-01-19 2022-01-19 Outpatient R [facility] [id number] Univers 12:30:00 12:30:00 [place] perez o f [facility] 2022-01-19 2022-01-19 Telephone [facility] 1.2.058.930 [id number] Univers 00:00:00 00:00:00 [place] ARANDA 350.1.13.10 ity of [place] 4.2.7.2.686 [place] [phone] [place] 069829 [facility] 2022-01-17 2022-01-17 Legal Billing Analyst Farnaz, Adc Lab Main [facility] 1.2.8 40.114 [id number] Univers 08:45:00 09:00:00 Visit Catrina Danmerzaheer ARANDA 350.1.13.10 ity of [place] 4.2.7.2.686 [place] [phone] [address] 2022-01-17 2022-01-17 Outpatient [facility] [id number] Univers 08:45:00 08:45:00 [place] ity o f [facility] 2022-01-17 2022-01-17 [facility] 1.2.418.884 [id number] Univers 00:00:00 00:00:00 Rogerzaheer ARANDA 350.1.13.10 ity of [place] 4.2.7.2.686 [place] [phone] [address] 2021-12-28 2021-12-28 Legal Billing Analyst Farnaz, Adc Lab Main [facility] 1.2.8 40.114 [id number] Univers 10:30:00 10:45:00 Visit Yolande Santacruz 350.1.13.10 ity of [place] 4.2.7.2.686 [place] [phone] Pa dical [address] 2021-12-28 2021-12-28 Outpatient [facility] [id number] Univers 10:30:00 10:30:00 YOLANDE perez [facility] 2021-12-28 2021-12-28 Telephone SyLINDAIN 1.2.196.019 [id number] Univers 00:00:00 00:00:00 [place] PEDIATRIC 350.1.13.10 [place]y of [place]2.7.2.686 [place] [phone] [facility] PRIMARY 059 [facility] 2021-12-15 2021-12-15 Telephone [facility] 1.2.088.621 [id number] Univers 00:00:00 00:00:00 Qiajuan [place] 350.1.13.10 ity of [place] 4.2.7.2.686 [place] [phone] Pa dical [facility]9 [facility] 2021-12-15 2021-12-15 Telephone [facility] 1.2.499.800 [id number] Univers 00:00:00 00:00:00 Qiamerjun [place] 350.1.13.10 ity of [place] 4.2.7.2.686 [place] PROFESS[place] [id number] Pa dic[address] 2021-12-15 2021-12-15 Refill [facility] 1.2.840.114 [id number] Univers 00:00:00 00:00:00 [place] ARANDA 350.1.13.10 ity of [place] 4.2.7.2.686 [place] [phone] [place] 069829 [facility] 2021-12-14 2021-12-14 Legal Billing Analyst Farnaz, Andre Lab Main [facility] 1.2.8 40.114 [id number] Univers 12:30:00 12:45:00 Visit Sy [place] ARANDA 350.1.13.10 [place]y of [place] 4.2.7.2.686 [place] [phone] [facility] 353 [facility] 2021-12-14 2021-12-14 Outpatient [facility] [id number] Univers 12:30:00 12:30:00 [place] perez o f [facility] 2021-12-14 2021-12-14 Orders Doctor JOHANN 1.2.840.114 [id number] Univers 00:00:00 00:00:00 Only Unassigned, MIKE 350.1.13.10 ity of [place] [facility] 4.2.7.2.686 Babak as [phone] [facility] 009 [address] 2021-12-04 2021-12-04 Legal Billing Analyst Farnaz, Andre Lab Main [facility] 1.2.8 40.114 [id number] Univers 14:15:00 14:30:00 Visit Sy [place] ARANDA 350.1.13.10 ity [facility] 4.2.7.2.[place] [phone] Pa dical NAL 353 [facility] 2021-12-04 2021-12-04 Outpatient [facility] [id number] Univers 14:15:00 14:15:00 QIAJUAN ity o f [facility] 2021-12-04 2021-12-04 Outpatient R [facility], [facility] [id number] Univers 14:15:00 14:15:00 [place] scotty o f [facility] 2021-12-04 2021-12-04 Transition ALESIA Gamez 1.2.840.114 [id number] Univers 00:00:00 00:00:00 of Thao SAMANIE[place] 350.1.13.10 it y of [place] 4.2.7.2.686 [place] [phone] [facility] 403 [place] 2021-12-04 2021-12-04 Telephone Sy [facility] 1.2.899.075 [id number] Univers 00:00:00 00:00:00 [place] ARANDA 350.1.13.10 ity of [place] 4.2.7.2.686 [place] [phone] Pa dical NAL 059 [facility] 2021-11-23 2021-12-01 Inpatient R REBECA HOLCOMB [facility] 10 [id number] Univers 15:31:00 14:11:00 REBECA HOLCOMB ity of [facility] 2021-11-23 2021-12-01 [facility] SHAYAN Holcomb 1.2.178.248 [id number] Univers 15:31:00 14:11:00 Encounter Rebeca MCKEON 350.1.13.10 ity of [facility] 4.2.7.2.686 Babak as [phone] [facility] 089 [place] 2021-12-01 2021-12-01 Telephone [facility] 1.2.162.120 [id number] Univers 00:00:00 00:00:00 [place] 350.1.13.10 i ty [facility] 4.2.7.2.[place] [phone] Pa dicut NAL 059 [facility] 2021-11-23 2021-11-23 Orders Doctor JOHANN 1.2.840.114 [id number] Univers 00:00:00 00:00:00 Only Unassigned, MIKE 350.1.13.10 [facility] 4.2.7.2.686 Babak as [phone] [address] 2021-11-22 2021-11-22 Legal Billing Analyst Farnaz, Adc Lab Main [facility] 1.2.8 40.114 [id number] Univers 07:45:00 08:00:00 Visit [place] Dan 350.1.13.10 ity [facility] 4.2.7.2.[place] [phone] [address] 2021-11-22 2021-11-22 Outpatient R SY, [facility] [id number] Univers 07:45:00 07:45:00 ROGERZAHEER ity o f [facility] 2021-11-22 2021-11-22 Outpatient R SY, [facility] [id number] Univers 07:45:00 07:45:00 [place] ity o f [facility] 2021-11-20 2021-11-20 Telephone Sy, [facility] 1.2.259.237 [id number] Univers 00:00:00 00:00:00 Rogerzaheer [place] 350.1.13.10 ity [facility] 4.2.7.2.[place] [phone] Pa dical NAL 059 [facility] 2021-11-10 2021-11-10 Legal Billing Analyst Farnaz, Adc Lab Main [facility] 1.2.8 40.114 [id number] Univers 16:45:00 17:00:00 Visit Catrina Danmerzaheer [place] 350.1.13.10 ity [facility] 4.2.7.2.[place] [phone] Pa dical NAL [address] BUILDING 2021-11-10 2021-11-10 Outpatient R SY, [facility] [id number] Univers 16:45:00 16:45:00 [place] perez o [facility] 2021-11-10 2021-11-10 Outpatient R SY, [facility] [id number] Univers 16:45:00 16:45:00 CATRINAJUAN scottjake o [facility] 2021-11-10 2021-11-10 Telephone [facility] 1.2.423.499 [id number] Univers 00:00:00 00:00:00 [place] ARANDA 350.1.13.10 ity of [place] 4.2.7.2.686 [place] [phone] [place] 915999 [facility] 2021-11-07 2021-11-07 Telephone [facility] 1.2.840.114 [id number] Univers 00:00:00 00:00:00 h, Tar HEALTH 350.1.13.10 i ty of [place]2.7.2.686 [place] [phone] [place] [address] [address] OFFICE BUILDING 2021-11-06 2021-11-06 Legal Billing Analyst Farnaz, Andre Lab Main [facility] 1.2.8 40.114 [id number] Univers 13:15:00 13:30:00 Visit Sy [place] ARANDA 350.1.13.10 ity of [place] 4.2.7.2.686 [place] [phone] [facility] 353 [facility] 2021-11-06 2021-11-06 Outpatient R SY, [facility] [id number] Univers 13:15:00 13:15:00 ROGERZAHEER ana o [facility] 2021-11-06 2021-11-06 Outpatient R SY, [facility] [id number] Univers 13:15:00 13:15:00 ROGERZAHEER ana o [facility] 2021-11-06 2021-11-06 Telephone [facility] 1.2.829.873 [id number] Univers 00:00:00 00:00:00 Qiangjun [place] 350.1.13.10 ity [facility] 4.2.7.2.[place] [phone] Me dical NAL 059 [facility] 2021-11-06 2021-11-06 [facility] 1.2.741.277 [id number] Univers 00:00:00 00:00:00 Wayne HEALTH 350.1.13.10 it y of [place]2.7.2.[place] [phone] [address] OFFICE BUILDING 2021-11-03 2021-11-03 [facility] [id number] Univers 15:00:00 15:40:28 WAYNE ity of [facility] 2021-11-03 2021-11-03 Outpatient [facility] [id number] Univers 15:00:00 15:40:28 WAYNE ity [facility] 2021-11-03 2021-11-03 [facility] 1.2.840.114 [id number] Univers 15:00:00 15:20:00 Visit [facility] 350.1.13.10 i ty [facility] 4.2.7.2.[place] [phone] Pa dical NAL [address] [place] [address] 2021-11-03 2021-11-03 Outpatient [facility] [id number] Univers 15:00:00 15:00:00 WAYNE ity [facility] 2021-11-03 2021-11-03 Legal Billing Analyst Farnaz, Andre Lab Main [facility] 1.2.8 40.114 [id number] Univers 14:30:00 14:45:00 Visit [place] Dan 350.1.13.10 ity of [facility] [place] [phone] Pa dical NAL 353 [facility] 2021-11-03 2021-11-03 [facility] [id number] Univers 11:00:00 11:00:00 WAYNE ity of [facility] 2021-11-03 2021-11-03 [facility] [id number] Univers 11:00:00 11:00:00 WAYNE ity [facility] 2021-11-03 2021-11-03 Outpatient R HIMA, [facility] [id number] Univers 11:00:00 11:00:00 WAYNE ity [facility] 2021-11-03 2021-11-03 [facility] 1.2.029.000 [id number] Univers 00:00:00 00:00:00 [place] ARANDA 350.1.13.10 [facility]y [facility] 4[place] [phone] Pa dical NAL 059 [facility] 2021-10-25 2021-10-25 [facility] 1.2.840.114 [id number] Univers 00:00:00 00:00:00 [place] ARANDA 350.1.13.10 [facility]y [facility] [place] [phone] Pa dical NAL 059 [facility] 2021-10-23 2021-10-23 Legal Billing Analyst Farnaz, Adc Lab Main [facility] 1.2.8 40.114 [id number] Univers 10:15:00 10:30:00 Visit [place] Dan 350.1.13.10 ity [facility] [place] [phone] Pa dical NAL 353 [facility] 2021-10-23 2021-10-23 Outpatient R SY [facility] [id number] Univers 10:15:00 10:15:00 [place] perez o f [facility] 2021-10-23 2021-10-23 Outpatient R SY [facility] [id number] Univers 10:15:00 10:15:00 [place] perez o f [facility] 2021-10-23 2021-10-23 Orders Doctor WILLS 1.2.840.114 [id number] Univers 00:00:00 00:00:00 Only Unassigned, MIKE 350.1.13.10 ity of [place] [facility] 4.2.7.2.686 [place] as [phone] [address] 2021-10-23 2021-10-23 [facility] 1.2.840.114 [id number] Univers 00:00:00 00:00:00 [place]juan [place] 350.1.13.10 ity of [place] [phone] Pa dical NAL 059 [facility] 2021-10-23 2021-10-23 Telephone [facility] [id number] [facility] 00:00:00 00:00:00 Qiajuan [place] 350.1.13.10 ity of [place] [phone] Pa dicut NAL [address] [place] [address] 2021-10-18 2021-10-18 Legal Billing Analyst Farnaz, Adc Lab Main [facility] 1.2.8 40.114 [id number] Univers 09:30:00 09:45:00 Visit [place] Dan 350.1.13.10 ity of [place] [phone] Pa dical NAL 353 [facility] 2021-10-18 2021-10-18 Outpatient R SY, [facility] [id number] Univers 09:30:00 09:30:00 ROGERZAHEER ity o [facility] 2021-10-18 2021-10-18 Outpatient R SY, [facility] [id number] Univers 09:30:00 09:30:00 [place] ity o [facility] 2021-10-18 2021-10-18 Telephone [facility] 1.2.407.600 [id number] [facility] 00:00:00 00:00:00 [place] 350.1.13.10 ity of [place] [phone] Pa dical NAL 059 [facility] 2021-10-13 2021-10-13 Legal Billing Analyst Farnaz, Adc Lab Main [facility] 1.2.8 40.114 [id number] Univers 10:45:00 11:00:00 Visit Sy, Qiangjun [place] 350.1.13.10 it[place] of [place] [phone] Pa dical NAL [address] [place] [address] 2021-10-13 2021-10-13 Outpatient R SY, [facility] [id number] Univers 10:45:00 10:45:00 QIANGJUN ity o f [facility] 2021-10-13 2021-10-13 Outpatient R SY, [facility] [id number] Univers 10:45:00 10:45:00 QIANGJUN ity o [facility] 2021-10-13 2021-10-13 Telephone [facility] 1.2.400.552 [id number] Univers 00:00:00 00:00:00 [place] 350.1.13.10 it[place] of [place] [phone] [address] 2021-09-27 2021-09-27 Legal Billing Analyst Farnaz, Adc Lab Main [facility] 1.2.8 40.114 [id number] Univers 10:15:00 10:30:00 Visit Sy [place] 350.1.13.10 it[place] of [place] [phone] [address] 2021-09-27 2021-09-27 Outpatient R SY, [facility] [id number] Univers 10:15:00 10:15:00 ROGERZAHEER ity o [facility] 2021-09-27 2021-09-27 Outpatient R SY, [facility] [id number] Univers 10:15:00 10:15:00 ROGERJUN ity o [facility] 2021-09-27 2021-09-27 Telephone [facility] 1.2.627.993 [id number] Univers 00:00:00 00:00:00 [place] 350.1.13.10 it[place] of [place] [phone] [address] 2021-09-27 2021-09-27 Telephone [facility] 1.2.328.980 [id number] Univers 00:00:00 00:00:00 [place] 350.1.13.10 it[place] of [place] [phone] Pa dical NAL 9 [facility] 2021-09-21 2021-09-21 [facility] 1.2.840.114 [id number] Univers 00:00:00 00:00:00 Catrinamerzaheer [place] 350.1.13.10 it[place] of [place] [phone] Pa dical NAL 9 [facility] 2021-09-01 2021-09-01 [facility] 1.2.114.718 [id number] Univers 00:00:00 00:00:00 [place] 350.1.13.10 [facility] 4.2.7.[place] [phone] [place] 9[address]999 [facility] 2021-08-30 2021-08-30 Legal Billing Analyst Farnaz, Adc Lab Main [facility] 1.2.8 40.114 [id number] Univers 09:00:00 09:15:00 Visit Catrina Danmerzaheer ARANDA 350.1.13.10 it[place] of [place] [phone] [facility] 2021-08-30 2021-08-30 Outpatient R [facility] [id number] Univers 09:00:00 09:00:00 [place] scotty o f [facility] 2021-08-30 2021-08-30 Outpatient R [facility] [id number] Univers 09:00:00 09:00:00 [place] scotty o f [facility] 2021-08-30 2021-08-30 Orders Doctor WILLS 1.2.840.114 [id number] Univers 00:00:00 00:00:00 Only Unassigned, MIKE 350.1.13.10 ity of [place] [facility] 4.2.7.2.686 Babak as [phone] [address] 2021-08-30 2021-08-30 Telephone Sy, [facility] 1.2.080.241 [id number] Univers 00:00:00 00:00:00 [place] ARANDA 350.1.13.10 it[place] of [place] [phone] Pa dical NAL 059 [facility] 2021-08-28 2021-08-28 Office Sy, [facility] 1.2.840.114 [id number] Univers 10:40:00 10:49:42 Visit [place] ARANDA 350.1.13.10 [facility] 4.2.7.2.[place] [phone] Pa dical NAL [address] [place] [address] 2021-08-28 2021-08-28 Outpatient R SY, [facility] [id number] Univers 10:40:00 10:49:42 [place] perez o [facility] 2021-08-28 2021-08-28 Outpatient R SY, [facility] [id number] Univers 10:40:00 10:40:00 [place] perez o [facility] 2021-08-28 2021-08-28 Outpatient R SY, [facility] [id number] Univers 10:40:00 10:40:00 [place] scotty o [facility] 2021-08-16 2021-08-16 Legal Billing Analyst Farnaz, Adc Lab Main [facility] 1.2.8 40.114 [id number] Univers 12:15:00 12:30:00 Visit [place] Dan 350.1.13.10 ity of [place] 4.2.7.[place] [phone] Pa dical NAL 353 [facility] 2021-08-16 2021-08-16 Outpatient R SY, [facility] [id number] Univers 12:15:00 12:15:00 QIAJUAN ity o [facility] 2021-08-16 2021-08-16 Outpatient R SY, [facility] [id number] [facility] 12:15:00 12:15:00 QIANGZAHEER ity o [facility] 2021-08-16 2021-08-16 Orders Doctor JOHANN 1.2.840.114 [id number] Univers 00:00:00 00:00:00 Only Unassigned, MIKE 350.1.13.10 ity of [place] [facility] 4.2.7.2.686 Babak as [phone] [address] 2021-08-16 2021-08-16 Telephone [facility] 1.2.587.082 [id number] Univers 00:00:00 00:00:00 [place] ARANDA 350.1.13.10 it[place] of [place] [phone] Pa dical NAL 059 [facility] 2021-08-02 2021-08-02 Legal Billing Analyst Farnaz, Adc Lab Main [facility] 1.2.8 40.114 [id number] Univers 09:00:00 09:15:00 Visit [place] Dan 350.1.13.10 it[facility] 4.2.7.[place] [phone] Pa dical NAL 353 [facility] 2021-08-02 2021-08-02 Outpatient R SY, [facility] [id number] Univers 09:00:00 09:00:00 [place] perez o [facility] 2021-08-02 2021-08-02 Outpatient R SY, [facility] [id number] Univers 09:00:00 09:00:00 [place] perez o [facility] 2021-08-02 2021-08-02 Orders Doctor JOHANN 1.2.840.114 [id number] Univers 00:00:00 00:00:00 Only Unassigned, MIKE 350.1.13.10 ity of [place] [facility] 4.2.7.2.686 Babak as [phone] [address] 2021-08-02 2021-08-02 Telephone [facility] 1.2.625.422 [id number] Univers 00:00:00 00:00:00 [place] ARANDA 350.1.13.10 it[facility] 4.2.7.[place] [phone] Pa dical NAL 9 [facility] 2021-07-10 2021-07-10 [facility] 1.2.840.114 [id number] Univers 00:00:00 00:00:00 [place] ARANDA 350.1.13.10 it[place] of [place] [phone] [facility] NAL [address] [place] [address] 2021-07-05 2021-07-05 Legal Billing Analyst Farnaz, Adc Lab Main [facility] 1.2.8 40.114 [id number] Univers 09:30:00 09:45:00 Visit [place] Dan 350.1.13.10 ity [facility] 4.2.7.[place] [phone] [address] 2021-07-05 2021-07-05 [facility] [id number] Univers 09:30:00 09:30:00 [place] scotty o [facility] 2021-07-05 2021-07-05 Outpatient R [facility] [id number] Univers 09:30:00 09:30:00 [place] perez o [facility] 2021-07-05 2021-07-05 [facility] 1.2.211.798 [id number] Univers 00:00:00 00:00:00 [place] ARANDA 350.1.13.10 ity of [place] 4[place] [phone] [facility] NAL [address] [place] [address] 2021-06-15 2021-06-15 Legal Billing Analyst Farnaz, Adc Lab Main [facility] 1.2.8 40.114 [id number] Univers 09:45:00 10:00:00 Visit Sy [place] ARANDA 350.1.13.10 ity of [place] 4[place]2.7.[place] [phone] Pa dical NAL [address] [place] [address] 2021-06-15 2021-06-15 [facility] [id number] Univers 09:45:00 09:23:22 [place] perez o f [facility] 2021-06-15 2021-06-15 Outpatient R SY, [facility] [id number] Univers 09:45:00 09:23:22 [place] jimenes f [facility] 2021-06-15 2021-06-15 Orders Doctor JOHANN 1.2.840.114 [id number] Univers 00:00:00 00:00:00 Only Unassigned, MIKE 350.1.13.10 ity of [place] [facility] 4.2.7.2.686 Babak as [phone] [place] [address] [address] 2021-06-15 2021-06-15 Telephone YANY Dan 1.2.963.013 [id number] Univers 00:00:00 00:00:00 [place] PEDIATRIC 350.1.13.10 [place] of [place] [phone] [facility] PRIMARY 059 [facility] CLINIC 2021-05-31 2021-05-31 Legal Billing Analyst Farnaz, Andre Lab Main [facility] 1.2.8 40.114 [id number] Univers 10:45:00 11:00:00 Visit Catrina Danmerzaheer ARANDA 350.1.13.10 it[place] of [place] [phone] Pa dical [facility] 353 [facility] 2021-05-31 2021-05-31 [facility] 1.2.840.114 [id number] Univers 10:00:00 10:33:12 Visit Catrinamerzaheer ARANDA 350.1.13.10 ity of [place] [phone] Pa dical NAL 059 [facility] 2021-05-31 2021-05-31 Outpatient R SY [facility] [id number] Univers 10:00:00 10:33:12 ROGERZAHEER tylerjake o f [facility] 2021-05-31 2021-05-31 Outpatient R SY [facility] [id number] Univers 10:00:00 10:00:00 [place] perez o abigail [facility] 2021-05-31 2021-05-31 Telephone [facility] 1.2.040.066 [id number] Univers 00:00:00 00:00:00 [place] ARANDA 350.1.13.10 ity [facility] 4.2.7.2.[place] [facility] [phone] Pa dical NAL 059 [facility] 2021-05-26 2021-05-26 Emergency X JAKE, K [facility] ERT [id number] Univers 17:30:00 20:34:00 ity of [facility] 2021-05-26 2021-05-26 Emergency Jake, Ricky [facility] 1.2.840.114 [id number] Univers 17:30:00 20:34:00 Myah ARANDA 350.1.13.10 i ty [facility] 4.2.7.2.686 [facility] MONTEZUMA [phone] [facility] 084 [place] 2021-05-26 2021-05-26 Outpatient R SY, [facility] [id number] Univers 10:20:00 10:20:00 [place] jimenes [facility] 2021-05-26 2021-05-26 Outpatient R SY, [facility] [id number] Univers 10:20:00 10:20:00 [place] jimenes [facility] 2021-05-10 2021-05-10 Legal Billing Analyst Farnaz, Adc Lab Main [facility] 1.2.8 40.114 [id number] Univers 08:15:00 08:30:00 Visit [place] Dan ROSI 350.1.13.10 ity [facility] 4.2.7.2.[place] [facility] [phone] Pa dical NAL 353 [facility] 2021-05-10 2021-05-10 Outpatient R SY, [facility] [id number] Univers 08:15:00 08:15:00 [place] perez o [facility] 2021-05-10 2021-05-10 Outpatient R SY, [facility] [id number] Univers 08:15:00 08:15:00 [place] perez o [facility] 2021-05-10 2021-05-10 [facility] 1.2.956.778 [id number] Univers 00:00:00 00:00:00 Qiangjun [place] 350.1.13.10 ity of [place] [phone] [address] 2021-05-10 2021-05-10 [facility] 1.2.099.325 [id number] Univers 00:00:00 00:00:00 Qiangjun [place] 350.1.13.10 ity of [place] [phone] [address] 2021-05-09 2021-05-09 [facility] 1.2.840.114 [id number] Univers 00:00:00 00:00:00 Qiamerjun [place] 350.1.13.10 ity of [place].2.[place] [phone] [address] 2021-05-04 2021-05-04 [facility] 1.2.840.114 [id number] Univers 00:00:00 00:00:00 Qiamerjun [place] 350.1.13.10 ity of [place] 4[place].2.[place] [phone] [address] 2021-04-28 2021-04-28 Outpatient R HIMA [facility] [id number] Univers 08:40:00 09:19:00 WAYNE ity of [facility] 2021-04-28 2021-04-28 Office [facility] 1.2.840.114 [id number] Univers 08:40:00 09:19:00 Visit Wayne KENANTON 350.1.13.10 i ty of [place] 4[place]2.7.2.[place] [phone] [address] 2021-04-28 2021-04-28 [facility]patient [facility] [id number] Univers 08:40:00 09:19:00 WAYNE ity of [facility] 2021-04-28 2021-04-28 Legal Billing Analyst Andre Osei Lab Main [facility] 1.2.8 40.114 [id number] Univers 08:00:00 08:15:00 Visit [place] Dan 350.1.13.10 ity of [place].7.2.[place] [phone] Pa dical NAL 353 [facility] 2021-04-27 2021-04-27 Legal Billing Analyst Farnaz, Adc Lab Main [facility] 1.2.8 40.114 [id number] Univers 10:45:00 11:00:00 Visit [place] Dan 350.1.13.10 [facility] 4.2.7.2.[place] [phone] [address] 2021-04-27 2021-04-27 Outpatient [facility] [id number] Univers 10:45:00 10:45:00 ROGERZAHEER tylerjake o f [facility] 2021-04-27 2021-04-27 Outpatient [facility] [id number] Univers 10:45:00 10:45:00 ROGERZAHEER tylerjake o f [facility] 2021-04-27 2021-04-27 Telephone YANY Dan 1.2.040.412 [id number] Univers 00:00:00 00:00:00 Rogerzaheer PEDIATRIC 350.1.13.10 [place] [phone] [address] 2021-04-25 2021-04-25 Outpatient R HIMA [facility] [id number] Univers 10:20:00 10:20:00 WAYNE ity [facility] 2021-04-25 2021-04-25 Outpatient R HIMA [facility] [id number] Univers 10:20:00 10:20:00 WAYNE ity [facility] 2021-04-12 2021-04-12 Legal Billing Analyst Farnaz, Adc Lab Main [facility] 1.2.8 40.114 [id number] Univers 09:30:00 09:45:00 Visit Sy, Qiangjun [place] 350.1.13.10 ity of [place] 4.2.7.2.[place] [phone] Pa dical NAL 353 [facility] 2021-04-12 2021-04-12 Outpatient R [facility] [id number] Univers 09:30:00 09:30:00 [place] perez o f [facility] 2021-04-12 2021-04-12 Outpatient R [facility] [id number] Univers 09:30:00 09:30:00 [place] ity o f [facility] 2021-04-12 2021-04-12 Orders Doctor JOHANN 1.2.840.114 [id number] Univers 00:00:00 00:00:00 Only Unassigned, MIKE 350.1.13.10 ity of [place] [facility] 4.2.7.2.686 Babak as [phone] [address] 2021-04-12 2021-04-12 Telephone [facility] 1.2.959.443 [id number] Univers 00:00:00 00:00:00 Catrinamerzaheer ARANDA 350.1.13.10 ity of [place] 4[place].2.[place] [phone] Pa dical NAL 059 [facility] 2021-03-29 2021-03-29 Outpatient R [facility] [id number] Univers 11:20:00 11:20:58 [place] perez o [facility] 2021-03-29 2021-03-29 Office [facility] 1.2.840.114 [id number] Univers 11:20:00 11:20:58 Visit Catrinamerzaheer ARANDA 350.1.13.10 ity of [place] 4[place]2.7.2.[place] [phone] Pa dical NAL 059 [facility] 2021-03-28 2021-03-28 Legal Billing Analyst Farnaz, Adc Lab Main [facility] 1.2.8 40.114 [id number] Univers 12:13:20 12:28:20 Visit [place] Dan 350.1.13.10 it[facility] 4.2.7.2.[place] [phone] Pa dical NAL 353 [facility] 2021-03-28 2021-03-28 Outpatient R SY, [facility] [id number] Univers 12:15:00 12:15:00 [place] perez o [facility] 2021-03-28 2021-03-28 Outpatient R SY, [facility] [id number] Univers 12:15:00 12:15:00 [place] perez o [facility] 2021-03-28 2021-03-28 Orders Doctor JOHANN 1.2.840.114 [id number] Univers 00:00:00 00:00:00 Only Unassigned, MIKE 350.1.13.10 ity of [place] [facility] 4.2.7.2.686 Babak as [phone] [address] 2021-03-28 2021-03-28 [facility] 1.2.564.086 [id number] Univers 00:00:00 00:00:00 [place] ARANDA 350.1.13.10 ity of [place] 4.2.7.2.[place] [phone] Pa dical NAL 059 [facility] 2021-03-28 2021-03-28 [facility] 1.2.840.114 [id number] Univers 00:00:00 00:00:00 [place] ARANDA 350.1.13.10 ity of [place] 4.2.7.2.[place] [id number] Pa dical NAL 059 [facility] 2021-03-20 2021-03-20 Outpatient R SY, [facility] [id number] Univers 13:45:00 13:45:00 [place] tylerjake o [facility] 2021-03-20 2021-03-20 Outpatient R SY, [facility] [id number] Univers 13:45:00 13:45:00 [place] tylerjake o [facility] 2021-03-20 2021-03-20 Legal Billing Analyst Farnaz, Adc Lab Main [facility] 1.2.8 40.114 [id number] Univers 11:58:29 12:13:29 Visit [place] Dan 350.1.13.10 [facility] 4.2.7.2.[place] [phone] [facility] 353 [facility] 2021-03-20 2021-03-20 Telephone [facility] 1.2.006.754 [id number] Univers 00:00:00 00:00:00 [place] ARANDA 350.1.13.10 ity of [place] 4.2.7.2.[place] [phone] [address] 2021-03-15 2021-03-15 Outpatient [facility] [id number] Univers 09:15:00 09:15:00 JOSE [facility] 2021-03-15 2021-03-15 Outpatient Joan VILLA [facility] [id number] Univers 09:15:00 09:15:00 [facility] 2021-03-15 2021-03-15 Legal Billing Analyst Farnaz, Andre Lab Main [facility] 1.2.8 40.114 [id number] Univers 08:14:37 08:29:37 Visit Jose [place] ROSI 350.1.13. 10 ity of [place].7.2.[place] [phone] [address] 2021-03-15 2021-03-15 Orders Doctor WILLS 1.2.840.114 [id number] Univers 00:00:00 00:00:00 Only Unassigned, MIKE 350.1.13.10 ity of [place] [facility] 4.2.7.2.686 Babak as [phone] [address] 2021-03-15 2021-03-15 Telephone [facility] 1.2.616.832 [id number] Univers 00:00:00 00:00:00 [place] ARANDA 350.1.13.10 ity [facility] 4.2.7.2.[place] [phone] [facility] 059 [facility] 2021-03-07 2021-03-07 Transition ALESIA Gamez 1.2.840.114 [id number] Univers 00:00:00 00:00:00 of Thao SAMANIEGO 350.1.13.10 it y of [place]2.7.2.[place] [phone] [facility] [address] 2021-03-01 2021-03-06 Inpatient X FABIOLA [facility] BERENICE [id number] Univers 11:31:00 15:17:00 CALEB tylerjake [facility] 2021-03-01 2021-03-06 [facility] Jamie Deng [facility] 1.2.840.1 14 [id number] Univers 11:31:00 15:17:00 Encounter Kaley Rodriguesjavier ARANDA 350.1.13.10 ity of [place] 4.2.7.2.686 [place] [phone] [facility] [address] 2021-03-01 2021-03-01 [facility] B[facility] [id number] Univers 11:31:00 11:31:00 CALEBJAVIER perez [facility] 2021-02-27 2021-02-27 Outpatient R SY, [facility] [id number] Univers 11:20:00 11:44:55 [place] perez o [facility] 2021-02-27 2021-02-27 Outpatient R SY, [facility] [id number] Univers 11:20:00 11:44:55 [place] ana o [facility] 2021-02-27 2021-02-27 Outpatient R SY, [facility] [id number] Univers 11:20:00 11:44:55 CATRINAJUAN tylery o [facility] 2021-02-27 2021-02-27 Outpatient R SY, [facility] [id number] Univers 11:20:00 11:44:55 [place] ana o [facility] 2021-02-27 2021-02-27 Office [facility] 1.2.840.114 [id number] Univers 10:54:32 11:44:55 Visit [place] ARANDA 350.1.13.10 ity kendra [place] 4.2.7.2.686 [place] [phone] Pa dical NAL 059 [facility] 2021-02-27 2021-02-27 Outpatient R SY, [facility] [id number] Univers 10:30:00 10:30:00 [place] perez o f [facility] 2021-02-27 2021-02-27 Outpatient R SY, [facility] [id number] Univers 10:30:00 10:30:00 [place] perez o [facility] 2021-02-27 2021-02-27 Legal Billing Analyst Farnza, Adc Lab Main [facility] 1.2.8 40.114 [id number] Univers 09:52:58 10:07:58 Visit [place] Dan ROSI 350.1.13.10 ity of [place] 4.2.7.2.[place] [id number] Pa dical NAL 353 [facility] 2021-02-27 2021-02-27 Orders Doctor JOHANN 1.2.840.114 [id number] Univers 00:00:00 00:00:00 Only Unassigned, MIKE 350.1.13.10 ity of [place] [facility] 4.2.7.2.686 Babak as [phone] [address] 2021-02-27 2021-02-27 Telephone Sy, [facility] 1.2.885.038 [id number] Univers 00:00:00 00:00:00 [place] ARANDA 350.1.13.10 ity of [place] 4.2.7.2.[place] [phone] Pa dical NAL 059 [facility] 2021-02-24 2021-02-24 Outpatient R SY, [facility] [id number] Univers 10:45:00 10:45:00 [place] perez o [facility] 2021-02-24 2021-02-24 Outpatient R SY, [facility] [id number] Univers 10:45:00 10:45:00 [place] perez o [facility] 2021-02-24 2021-02-24 Legal Billing Analyst Farnaz, Adc Lab Main [facility] 1.2.8 40.114 [id number] Univers 09:17:46 09:32:46 Visit [place] Dan ROSI 350.1.13.10 ity of [place].2.[place] [phone] Pa natasha BURGESS [address] [facility] 2021-02-24 2021-02-24 Telephone [facility] [id number] Univers 00:00:00 00:00:00 [place] GRAYSONTON 350.1.13.10 it[place] [phone] [facility] NAL 9 [facility] 2021-02-24 2021-02-24 Telephone [facility] [id number] Univers 00:00:00 00:00:00 Catrinamerzaheer ROSI 350.1.13.10 it[place] [phone] [facility] [address] [place] [address] 2021-02-24 2021-02-24 Telephone [facility] [id number] Univers 00:00:00 00:00:00 Catrinamerzaheer ROSI 350.1.13.10 it[place] [phone] [facility] [address] [place] [address] 2021-02-15 2021-02-15 Legal Billing Analyst Farnaz, Adc Lab Main [facility] 1.2.8 40.114 [id number] Univers 09:47:39 10:02:39 Visit Sy [place] ARANDA 350.1.13.10 it[place] [phone] Pa natasha BURGESS 353 [facility] 2021-02-15 2021-02-15 Outpatient R SY [facility] [id number] Univers 09:45:00 09:45:00 [place] perez o abigail [facility] 2021-02-15 2021-02-15 Outpatient R SY [facility] [id number] Univers 09:45:00 09:45:00 [place] hayes [facility] 2021-02-15 2021-02-15 Orders Doctor JOHANN 1.2.840.114 [id number] Univers 00:00:00 00:00:00 Only Unassigned, MIKE 350.1.13.10 ity of [place] [facility] 4.2.7.2.686 Babak as [phone] [facility] [address] 2021-02-15 2021-02-15 Telephone Sy [facility] 1.2.858.350 [id number] Univers 00:00:00 00:00:00 [place] ARANDA 350.1.13.10 [facility] 4.2.7.2.[place] [phone] Pa dical NAL [address] [facility] 2021-02-10 2021-02-10 Transition ALESIA Gamez 1.2.840.114 [id number] Univers 00:00:00 00:00:00 of Care Georgie SAMANIEGO 350.1.13.10 [place] [phone] [facility] [address] 2021-02-04 2021-02-09 Inpatient X [facility] [id number] Univers 20:57:00 13:26:00 JENNIFER perez [facility] 2021-02-04 2021-02-09 [facility] Jamie Deng [facility] 1.2.840.1 [id number] Univers 20:57:00 13:26:00 Encounter Wilber Flowers 350.1.13.10 ity of Jennifer Lo 4.2.7.2.686 [facility] [phone] [facility] 080 Branch 2021-01-02 2021-01-02 Legal Billing Analyst Farnaz, Andre Lab Main [facility] 1.2.8 40.114 [id number] Univers 11:35:12 11:50:12 Visit [place] Dan 350.1.13.10 ity of [place] [phone] Pa dical nal 353 [facility] 2021-01-02 2021-01-02 Outpatient R SY [facility] [id number] Univers 11:45:00 11:45:00 [place] hayes [facility] 2021-01-02 2021-01-02 [facility] [id number] Univers 11:45:00 11:45:00 [place] jimenes [facility] 2021-01-02 2021-01-02 Orders Doctor JOHANN 1.2.840.114 [id number] Univers 00:00:00 00:00:00 Only Unassigned, MIKE 350.1.13.10 [facility] 4.2.7.2.686 Babak as [phone] [address] 2021-01-02 2021-01-02 Telephone [facility] 1.2.706.031 [id number] Univers 00:00:00 00:00:00 [place] Aranda 350.1.13.10 ity of [place] [phone] Pa dical nal 059 [facility] 2021-01-02 2021-01-02 [facility] 1.2.840.114 [id number] Univers 00:00:00 00:00:00 [place] Aranda 350.1.13.10 ity of [place] [phone] Pa dical nal 059 [facility] 2020-12-07 2020-12-07 Legal Billing Analyst Farnaz, Andre Lab Main [facility] 1.2.8 40.114 [id number] Univers 08:05:37 08:20:37 Visit Sy [place] Aranda 350.1.13.10 ity of [place] [phone] Pa dical nal 353 [facility] 2020-12-07 2020-12-07 Outpatient R SY [facility] [id number] Univers 08:00:00 08:00:00 CATRINAJUAN ana jalil hayes [facility] 2020-12-07 2020-12-07 Outpatient R [facility] [id number] Univers 08:00:00 08:00:00 [place] jimenes abigail [facility] 2020-12-07 2020-12-07 Telephone Sy, [facility] 1.2.519.989 [id number] Univers 00:00:00 00:00:00 [place] Aranda 350.1.13.10 itGrace 4.2.7.2.686 Jose Elias Fleming [phone] [place] [id number] Branch [facility] 2020-11-23 2020-11-23 Outpatient R SY, [facility] [id number] Univers 13:37:45 23:59:00 [place] jimenes [facility] 2020-11-23 2020-11-23 Outpatient R SY, [facility] [id number] Univers 13:37:45 23:59:00 [place] jimenes [facility] 2020-11-14 2020-11-14 Outpatient R SY, [facility] [id number] Univers 13:40:00 13:40:00 [place] jimenes [facility] 2020-10-12 2020-10-12 Outpatient R SY, [facility] [id number] Univers 08:00:00 08:00:00 [place] perez [facility] 2020-09-27 2020-09-27 Outpatient R SY, [facility] [id number] Univers 13:00:00 13:00:00 [place] perez [facility] 2020-09-22 2020-09-22 Outpatient R SY, [facility] [id number] Univers 09:30:00 09:30:00 [place] jimenes [facility] 2020-09-07 2020-09-07 Outpatient R SY, [facility] [id number] Univers 08:45:00 08:45:00 [place] jimenes [facility] 2020-08-19 2020-08-19 Outpatient R SY, [facility] [id number] Univers 08:45:00 08:45:00 [place] perez [facility] 2020-08-15 2020-08-15 Outpatient R SY, [facility] [id number] Univers 10:45:00 10:45:00 [place] perez [facility] 2020-08-08 2020-08-08 Outpatient R SY, [facility] [id number] Univers 11:45:00 11:45:00 [place] perez o f [facility] 2020-08-08 2020-08-08 Legal Billing Analyst Farnaz, [facility] 1.2.840.114 [id number] 11:14:44 11:29:44 Visit Lab Main [place] 350.1.13.10 [place] 4.2.7.2.686 Professio [phone] [facility] 353 [facility] 2020-08-08 2020-08-08 Orders Doctor JOHANN 1.2.840.114 [id number] 00:00:00 00:00:00 Only Unassigned, MIKE 350.1.13.10 [place] [facility] 4.2.7.2.686 [phone] [facility] 2020-08-08 2020-08-08 Telephone [facility] 1.2.433.516 [id number] 00:00:00 00:00:00 [place] 350.1.13.10 [place] 4.2.7.2.686 Professio [phone] [address] 2020-07-25 2020-07-25 Telephone [facility] 1.2.096.742 [id number] 00:00:00 00:00:00 [place] 350.1.13.10 [place] 4.2.7.2.686 Professio [phone] [address] 2020-07-20 2020-07-20 Outpatient R [facility] [id number] Univers 11:45:00 11:45:00 [place] hayes [facility] 2020-07-20 2020-07-20 Legal Billing Analyst Farnaz, [facility] 1.2.840.114 [id number] 10:37:03 10:52:03 Visit Lab Main [place] 350.1.13.10 [place] 4.2.7.2.686 Professio [phone] [address] 2020-07-20 2020-07-20 Orders Doctor JOHANN 1.2.840.114 [id number] 00:00:00 00:00:00 Only Unassigned, MIKE 350.1.13.10 [place] [facility] 4.2.7.2.686 [phone] 009 2020-07-20 2020-07-20 Telephone [facility] 1.2.925.932 [id number] 00:00:00 00:00:00 Catrinamerzaheer [place] 350.1.13.10 [place] 4.2.7.2.686 Professio [phone] [address] 2020-07-13 2020-07-13 Outpatient R [facility] [id number] Univers 10:15:00 10:15:00 [place] perez o [facility] 2020-07-13 2020-07-13 Legal Billing Analyst Farnaz, [facility] 1.2.840.114 [id number] 09:23:20 09:38:20 Visit Lab Main [place] 350.1.13.10 [place] 4.2.7.2.686 Professio [phone] [address] 2020-07-13 2020-07-13 Telephone [facility] 1.2.762.262 [id number] 00:00:00 00:00:00 [place] 350.1.13.10 [place] 4.2.7.2.686 Professio [phone] [address] 2020-06-19 2020-06-19 Telephone [facility] 1.2.862.707 [id number] 00:00:00 00:00:00 [place] 350.1.13.10 [place] 4.2.7.2.686 Professio [phone] [address] 2020-06-17 2020-06-17 Legal Billing Analyst Farnaz, [facility] 1.2.840.114 [id number] 09:22:55 09:37:55 Visit Lab Main [place] 350.1.13.10 [place] 4.2.7.2.686 Professio [phone] [address] 2020-06-17 2020-06-17 Outpatient R [facility] [id number] Univers 09:30:00 09:30:00 [place] perez o f [facility] 2020-06-08 2020-06-08 Telephone [facility] 1.2.282.145 [id number] 00:00:00 00:00:00 [place] 350.1.13.10 [place] 4.2.7.2.686 Professio [phone] [address] 2020-06-07 2020-06-07 Legal Billing Analyst Farnaz [facility] 1.2.840.114 [id number] 08:57:47 09:12:47 Visit Lab Main [place] 350.1.13.10 [place] 4.2.7.2.686 Professio [phone] [address] 2020-06-07 2020-06-07 Outpatient R [facility] [id number] Univers 09:00:00 09:00:00 [place] jimenes [facility] 2020-05-23 2020-05-23 Outpatient R [facility] [id number] Univers 09:15:00 09:15:00 [place] jimenes [facility] 2020-05-16 2020-05-16 Outpatient R [facility] [id number] Univers 11:30:00 11:30:00 [place] jimenes [facility] 2020-05-16 2020-05-16 [facility] 1.2.840.114 [id number] 11:09:17 11:24:17 Visit Lab Main [place] 350.1.13.10 [place] 4.2.7.2.686 Professio [phone] [address] 2020-05-16 2020-05-16 Orders Doctor JOHANN 1.2.840.114 [id number] 00:00:00 00:00:00 Only Unassigned, MIKE 350.1.13.10 [place] [facility] 4.2.7.2.686 [id number] [id number] 2020-05-16 2020-05-16 Telephone [facility] 1.2.560.346 [id number] 00:00:00 00:00:00 [place] 350.1.13.10 [place] 4.2.7.2.686 Professio [phone] [address] 2020-05-11 2020-05-11 Legal Billing Analyst Farnaz, Andre [facility] 1.2.840.114 [id number] 09:25:07 09:40:07 Visit Lab Main [place] 350.1.13.10 [place] 4.2.7.2.686 Professio [phone] [facility] 353 [facility] 2020-05-11 2020-05-11 Outpatient R MCDOWELL, [facility] [id number] Univers 09:30:00 09:30:00 SENDIL ity [facility] 2020-05-11 2020-05-11 Telephone [facility] 1.2.743.924 [id number] 00:00:00 00:00:00 [place] 350.1.13.10 [place] 4.2.7.2.686 Professio [phone] [address] 2020-05-11 2020-05-11 Telephone [facility] 1.2.664.751 [id number] 00:00:00 00:00:00 [place] 350.1.13.10 [place] 4.2.7.2.686 Professio [phone] [address] 2020-05-04 2020-05-04 Telephone [facility] 1.2.230.596 [id number] 00:00:00 00:00:00 [place] 350.1.13.10 [place] 4.2.7.2.686 Professio [phone] [address] 2020-05-03 2020-05-03 Out[facility] [id number] [facility] 11:30:00 11:30:00 [place] perez o f [facility] 2020-05-03 2020-05-03 Legal Billing Analyst Farnaz, [facility] 1.2.840.114 [id number] 10:05:00 10:20:00 Visit Lab Main [place] 350.1.13.10 [place] 4.2.7.2.686 Professio [phone] [address] 2020-05-03 2020-05-03 Orders Doctor WILLS 1.2.840.114 [id number] 00:00:00 00:00:00 Only Unassigned, MIKE 350.1.13.10 [place] [facility] 4.2.7.2.686 [phone] 009 2020-04-27 2020-04-27 Legal Billing Analyst Andre Osei [facility] 1.2.840.114 [id number] 08:24:03 08:39:03 Visit Lab Main [place] 350.1.13.10 [place] 4.2.7.2.686 Professio [phone] [facility] 353 [facility] 2020-04-27 2020-04-27 Outpatient R [facility] [id number] Univers 08:30:00 08:30:00 [place] jimenes [facility] 2020-04-27 2020-04-27 Telephone [facility] 1.2.443.098 [id number] 00:00:00 00:00:00 [place] Aranda 350.1.13.10 [place] 4.2.7.2.686 Professio [phone] [address] 2020-04-20 2020-04-20 Refill [facility] 1.2.840.114 [id number] 00:00:00 00:00:00 [place] 350.1.13.10 [place] 4.2.7.2.686 Professio [phone] [address] 2020-04-01 2020-04-01 [facility] [id number] Univers 10:15:00 10:15:00 NICK perez [facility] 2020-03-29 2020-03-29 Office [facility] 1.2.840.114 [id number] 14:32:40 15:25:41 Visit Rogerzaheer Aranda 350.1.13.10 [place] 4.2.7.2.686 Professio [phone] [address] 2020-03-29 2020-03-29 Outpatient R [facility] [id number] Univers 14:40:00 14:40:00 [place] perez o f [facility] 2020-03-22 2020-03-22 Outpatient R [facility] [id number] Univers 15:30:00 15:30:00 [place] ity o f [facility] 2020-03-15 2020-03-15 Outpatient R SY, [facility] [id number] Univers 11:15:00 11:15:00 QIANGJUN ity o f [facility] 2020-02-24 2020-02-24 Outpatient R SY, [facility] [id number] Univers 08:40:00 08:40:00 QIAMERJUN ity o f [facility] 2020-02-17 2020-02-17 Outpatient R SY, [facility] [id number] Univers 09:15:00 09:15:00 QIAJUAN ity o f [facility] 2020-01-11 2020-01-11 Outpatient R SY, [facility] [id number] Univers 12:45:00 12:45:00 [place] ity o f [facility] 2019-12-17 2019-12-17 Outpatient R SY, [facility] [id number] Univers 11:00:00 11:00:00 [place] ity o [facility] 2019-11-26 2019-11-26 Outpatient R SY, [facility] [id number] Univers 12:45:00 12:45:00 [place] ity o [facility] 2019-10-30 2019-10-30 Outpatient R RADIOLOGY [facility] [id number] Univers 00:00:00 00:00:00 [facility] 2019-10-20 2019-10-20 Outpatient R MCDERMOTT, ALICJA [facility] [id number] Univers 09:30:00 09:30:00 [facility] 2019-09-30 2019-09-30 Outpatient R SY, [facility] [id number] Univers 08:30:00 08:30:00 [place] ity o [facility] 2019-09-08 2019-09-08 Outpatient R SY, [facility] [id number] Univers 15:20:00 15:20:00 QIAMERJUN ity o [facility] 2019-09-03 2019-09-03 Outpatient R SY, [facility] [id number] Univers 09:00:00 09:00:00 QIANGJUN ity o [facility] 2019-07-24 2019-07-24 Outpatient R SY, [facility] [id number] Univers 11:45:00 11:45:00 [place] hayes [facility] 2019-06-22 2019-06-22 Outpatient Joan DAN [facility] [id number] Univers 13:30:00 13:30:00 [place] hayes [facility] Results Test Description Test Time [...] indications. Lab Interpretation (test code Abnormal = 31494-5) [facility] / [id number] 15:08:40 Test Item Value Reference Range Interpretation Comments PROTIME PATIENT (test 24.8 See_Comment H [Auto mated message] code = 5964-2) The system [employer] generated this result transmitted ref erence range: 12.0 - 1 4.7 Seconds. The reference range was not used to int erpret this result as normal/abnormal . INR (test code = 6301-6) 2.3 Nor mal INR <1.1; Warfarin Therap eutic range 2.0 to 3. 0 or 2.5 to 3.5, dep ending upon the indica tions. Lab Interpretation (test Abnormal code = 56717-3) [facility] / [id number] 15:08:40 Test Item Value Reference Range Interpretation Comments PROTIME PATIENT (test 24.8 See_Comment H [Auto mated message] code = 5964-2) The system [employer] generated this result transmitted ref erence range: 12.0 - 1 4.7 Seconds. The reference range was not used to int erpret this result as normal/abnormal . INR (test code = 6301-6) 2.3 Nor mal INR <1.1; Warfarin Therap eutic range 2.0 to 3. 0 or 2.5 to 3.5, dep ending upon the indica tions. Lab Interpretation (test Abnormal code = 20707-5) [facility] / [id number] 18:32:10 Test Item Value Reference Range Interpretation Comments PROTIME PATIENT (test 24.4 See_Comment H [Auto mated message] code = 5964-2) The system [employer] generated this result transmitted ref erence range: 12.0 - 1 4.7 Seconds. The reference range was not used to int erpret this result as normal/abnormal . INR (test code = 6301-6) 2.2 Nor mal INR <1.1; Warfarin Therap eutic range 2.0 to 3. 0 or 2.5 to 3.5, dep ending upon the indica tions. Lab Interpretation (test Abnormal code = 43881-7) [facility]2022-06-11 22:45:29 Test Item Value Reference Range Interpretation Comments Height (test code = 63 in 5950915993) Weight (test code = 102 lbs 1719732317) Systolic BP (test 123 mmHg code = 0739732098) Diastolic BP (test 64 mmHg code = 1381121252) Heart Rate (test code 61 bpm = 1252918985) LVOT peak amrita (test 114.0 cm/s code = 1236538146) LVOT mn grad (test 3.0 mmHg code = 6829809559) Aortic valve mean 209.0 cm/s velocity (test code = 9884795758) Ao peak amrita (test 333.0 cm/s code = 5454425358) Ao VTI (test code = 71.7 cm 8299458858) AV LVOT peak gradient 5.2 mmHg (test code = 2481230649) LVOT peak VTI (test 29.0 cm code = 4522659568) AV Doppler amrita index 0.34 ratio VTI (test code = 2734285425) LV V1 mean (test code 82.60 cm/s = 9031871205) Ao max PG (test code 44.40 mm[Hg] = 5161724825) AV peak gradient 44.4 mmHg (test code = 1628164818) AV mean gradient 21.0 mmHg (test code = 0608729012) Radiology Study observation (narrative) (test code = 38274-5) ROBERT (test code = ROBERT) ?Aortic?Valve: Mechanical [...] captured. The probe was inserted by the screwmaker automatic. Probe in 0930. Probe out 0940. Moderate sedation was given. 4% Lidocaine was used for local oropharyngeal anesthesia. 1 mg of midazolam and 50 mcg of Fentanyl were administered during the study. There were no complications during the procedure. Based on abnormal findings of 2D echocardiogram, 3D was performed on an acquisition scanner for further assessment of the aortic valve. MR, RN [facility] METABOLIC PANEL (NA, K, CL, CO2, GLUCOSE, BUN, CREATININE, CA)2022-06-11 09:30:25 Test Item Value Reference Range Interpretation Comments NA (test code = 137 mmol/L 135-145 1893663261) K (test code = 4.3 mmol/L 3.5-5.0 5840074746) CL (test code = 104 mmol/L 98-108 6257295546) CO2 TOTAL (test code = 30 mmol/L 23-31 3326712528) AGAP (test code = 3 2-16 4661193160) BUN (test code = 19 mg/dL 7-23 1259716881) GLUCOSE (test code = 102 mg/dL 70-110 0074501456) CREATININE (test code = 0.93 mg/dL 0.50-1.04 8585424401) CALCIUM (test code = 8.5 mg/dL 8.6-10.6 L 2254678211) eGFR (test code = 59.8 mL/min/1.73m2 5694242281) ROBERT (test code = ROBERT) Association of [...] tests). Lab Interpretation Abnormal (test code = 67093-3) [facility] 09:30:25 Test Item Value Reference Range Interpretation Comments MAGNESIUM (test code = 7711761023) 2.1 mg/dL 1.7-2.4 Lab Interpretation (test code = Normal 83319-4) [facility] / [id number] 09:18:08 Test Item Value Reference Range Interpretation Comments PROTIME PATIENT (test 19.8 See_Comment H [Auto mated message] code = 5964-2) The system [employer] generated this result transmitted ref erence range: 10.1 - 1 2.6 Seconds. The reference range was not used to int erpret this result as normal/abnormal . INR (test code = 6301-6) 1.8 Nor mal INR <1.1; Warfarin Therap eutic range 2.0 to 3. 0 or 2.5 to 3.5, dep ending upon the indica tions. Lab Interpretation (test Abnormal code = 89040-3) [facility]2023-[facility]-27 09:18:08 Test Item Value Reference Range Interpretation Comments APTT Patient (test code 89 See_Comment H [Au tomated message] = 3173-2) The system [employer] generated this result transmitted ref erence range: 26 - 36 Seconds. The reference range was not used to int erpret this result as normal/abnormal . Lab Interpretation (test Abnormal code = 95395-4) [facility]2023-[facility]-26 08:57:55 Test Item Value Reference Range Interpretation Comments MAGNESIUM (test code = 7984348889) 1.8 mg/dL 1.7-2.4 Lab Interpretation (test code = Normal 97624-3) [facility] METABOLIC PANEL (NA, K, CL, CO2, GLUCOSE, BUN, CREATININE, CA)2022-06-10 08:57:55 Test Item Value Reference Range Interpretation Comments NA (test code = 137 mmol/L 135-145 7268061192) K (test code = 4.0 mmol/L 3.5-5.0 5372246583) CL (test code = 100 mmol/L 98-108 9619922559) CO2 TOTAL (test code = 32 mmol/L 23-31 H 2339209659) AGAP (test code = 5 2-16 4209536301) BUN (test code = 24 mg/dL 7-23 H 7046807923) GLUCOSE (test code = 116 mg/dL 70-110 H 4071678172) CREATININE (test code = 1.00 mg/dL 0.50-1.04 1104550975) CALCIUM (test code = 9.1 mg/dL 8.6-10.6 5752464027) eGFR (test code = 55.0 mL/min/1.73m2 5662085785) ROBERT (test code = ROBERT) Association of [...] tests). Lab Interpretation Abnormal (test code = 72537-0) [facility] / [id number] 08:46:38 Test Item Value Reference Range Interpretation [...] tions. Lab Interpretation (test Abnormal code = 69479-4) [facility] 08:46:38 Test Item Value Reference Range Interpretation Comments APTT Patient (test code 85 See_Comment H [Au tomated message] = 3173-2) The system ic h generated this result transmitted ref erence range: 26 - 36 Seconds. The reference range was not used to int erpret this result as normal/abnormal . Lab Interpretation (test Abnormal code = 26864-1) [facility] WITH [id number] 08:39:15 Test Item Value Reference Range Interpretation Comments WBC (test code = 4.75 See_Comment [Automated 6690-2) message] The sy stem which generated this result transmitted reference range : 4.30 - 11.10 10*3/?L. The reference range was not used to interpret this result as normal/abnormal . RBC (test code = 3.55 See_Comment L [Automated 339-8) message] The sy stem which generated this [...] (test code = 58.1 fL 39.0-49.9 H 95645-4) RDW-CV (test code = 16.1 % 12.0-15.5 H 788-0) PLT (test code = 197 See_Comment [Automated 777-3) message] The sy stem which generated this result transmitted reference range : 166 - 358 10*3/ ?L. The reference r tali was not used to interpret this result as normal/abnormal . MPV (test code = 10.2 fL 9.5-12.9 44841-8) NRBC/100 WBC (test 0.0 See_Comment [Automat ed code = 4667920539) message] The system which generated this result transmitted reference range : 0.0 - 10.0 /100 WBCs. The refer ence range was not u sed to interpret th is result as normal/abnormal . NRBC x10^3 (test code See_Comment [Auto mated = 1423515019) message] The s ystem which generated this result transmitted reference range : 10*3/?L. The reference range was not used to interpret this result as normal/abnormal . GRAN MAT (NEUT) % 58.4 % (test code = 770-8) IMM GRAN % (test code 0.20 % = 2654205021) LYMPH % (test code = 24.2 % 736-9) MONO % (test code = 10.9 % 5905-5) EOS % (test code = 5.5 % 713-8) BASO % (test code = 0.8 % 706-2) GRAN MAT x10^3(ANC) 2.77 10*3/uL 1.88-7.09 (test code = 0355971118) IMM GRAN x10^3 (test 0.00-0.06 code = 1662910428) LYMPH x10^3 (test code 1.15 10*3/uL 1.32-3.29 L = 731-0) MONO x10^3 (test code 0.52 10*3/uL 0.33-0.92 = 742-7) EOS x10^3 (test code = 0.26 10*3/uL 0.03-0.39 711-2) BASO x10^3 (test code 0.04 10*3/uL 0.01-0.07 = 704-7) Lab Interpretation Abnormal (test code = 05493-9) [facility] 10:39:27 Test Item Value Reference Range Interpretation Comments MAGNESIUM (test code = 3387450318) 1.6 mg/dL 1.7-2.4 L Lab Interpretation (test code = Abnormal 54899-7) [facility] METABOLIC PANEL (NA, K, CL, CO2, GLUCOSE, BUN, CREATININE, CA)2022-06-09 10:39:27 Test Item Value Reference Range Interpretation Comments NA (test code = 139 mmol/L 135-145 2979024130) K (test code = 4.1 mmol/L 3.5-5.0 8652483797) CL (test code = 96 mmol/L 98-108 L 9625674419) CO2 TOTAL (test code = 36 mmol/L 23-31 H 1379762351) AGAP (test code = 7 2-16 2288516123) BUN (test code = 27 mg/dL 7-23 H 5296998362) GLUCOSE (test code = 116 mg/dL 70-110 H 4871118999) CREATININE (test code = 1.21 mg/dL 0.50-1.04 H 9227349298) CALCIUM (test code = 9.3 mg/dL 8.6-10.6 4687363909) eGFR (test code = 44.1 mL/min/1.73m2 4838398799) ROBERT (test code = ROBERT) Association of [...] tests). Lab Interpretation Abnormal (test code = 03451-9) [facility] / [id number] 10:26:27 Test Item Value Reference Range Interpretation Comments PROTIME PATIENT (test 18.7 See_Comment H [Auto mated message] code = 5964-2) The system [employer] generated this result transmitted ref erence range: 10.1 - 1 2.6 Seconds. The reference range was not used to int erpret this result as normal/abnormal . INR (test code = 6301-6) 1.7 Nor mal INR <1.1; Warfarin Therap eutic range 2.0 to 3. 0 or 2.5 to 3.5, dep ending upon the indica tions. Lab Interpretation (test Abnormal code = 33405-2) [facility] [id number] 10:16:07 Test Item Value Reference Range Interpretation Comments WBC (test code = 7.65 See_Comment [Automated 9722-2) message] The sy stem which generated this result transmitted reference range : 4.30 - 11.10 10*3/?L. The reference range was not used to interpret this result as normal/abnormal . RBC (test code = 3.99 See_Comment [Automated 847-8) message] The sy stem which generated this [...] (test code = 58.8 fL 39.0-49.9 H 77888-5) RDW-CV (test code = 16.3 % 12.0-15.5 H 788-0) PLT (test code = 244 See_Comment [Automated 777-3) message] The sy stem which generated this result transmitted reference range : 166 - 358 10*3/ ?L. The reference r tali was not used to interpret this result as normal/abnormal . MPV (test code = 10.1 fL 9.5-12.9 04874-9) NRBC/100 WBC (test 0.0 See_Comment [Automat ed code = 0573004736) message] The system which generated this result transmitted reference range : 0.0 - 10.0 /100 WBCs. The refer ence range was not u sed to interpret th is result as normal/abnormal . NRBC x10^3 (test code See_Comment [Auto mated = 6057003258) message] The s ystem which generated this result transmitted reference range : 10*3/?L. The reference range was not used to interpret this result as normal/abnormal . GRAN MAT (NEUT) % 75.8 % (test code = 770-8) IMM GRAN % (test code 0.30 % = 9931051718) LYMPH % (test code = 12.5 % 736-9) MONO % (test code = 8.5 % 5905-5) EOS % (test code = 2.0 % 713-8) BASO % (test code = 0.9 % 706-2) GRAN MAT x10^3(ANC) 5.80 10*3/uL 1.88-7.09 (test code = 6264502770) IMM GRAN x10^3 (test 0.00-0.06 code = 1023910612) LYMPH x10^3 (test code 0.96 10*3/uL 1.32-3.29 L = 731-0) MONO x10^3 (test code 0.65 10*3/uL 0.33-0.92 = 742-7) EOS x10^3 (test code = 0.15 10*3/uL 0.03-0.39 711-2) BASO x10^3 (test code 0.07 10*3/uL 0.01-0.07 = 704-7) Lab Interpretation Abnormal (test code = 65221-8) [facility]16 Test Item Value Reference Range Interpretation Comments Height (test code = 63 in 4354816944) Weight (test code = 101 lbs 4190844342) Systolic BP (test code 127 mmHg = 8133937842) Diastolic BP (test code 43 mmHg = 6073015999) Heart Rate (test code = 50 bpm 0315209268) BSA (test code = 1.45 m2 0674151008) LVOT diameter (test 1.62 cm code = 5678754436) LVOT area (test code = 2.05 cm2 1748096692) Ao root diam (test code 2.34 cm = 2517404513) Aortic root (test code 2.34 cm = 3370501053) Ao root annulus (test 2.34 cm code = 2571381734) LA size (test code = 4.9 cm 0205382705) TR Peak Amrita (test code 209.0 cm/s = 6438049516) Triscuspid Valve 17.5 mmHg Regurgitation Peak Gradient (test code = 8084633001) PV REGURGITATION PEAK 8.9 mmHg GRADIENT (test code = 6250653776) PI dec slope (test code 81.30 cm/s2 = 4226503697) E wave decelartion time 0.26 s (test code = 0698170933) MV Peak A Amrita (test 58.0 cm/s code = 9643049156) MV Peak E Amrita (test 116.0 cm/s code = 9920714525) E/A ratio (test code = 2.00 ratio 2799545943) MR max PG (test code = 125.90 mm[Hg] 0333613088) MR max amrita (test code = 561.00 cm/s 6413680030) Mr max amrita (test code = 561.0 m/s 1901022215) MV Prop V (test code = 33.60 cm/s 0993197592) LAV(MOD-sp4) (test code 50.40 mL = 8106487020) MV E/e' septal (test 5.1 cm/s code = 4267057635) Tapse (test code = 1.37 cm 0040813969) LVOT stroke volume 42.60 cm3 (test code = 4250476479) LVOT peak amrita (test 96.3 cm/s code = 2791634892) LVOT mn grad (test code 1.6 mmHg = 4300328639) AV LVOT peak gradient 3.7 mmHg (test code = 9855587921) LVOT peak VTI (test 20.8 cm code = 7307232107) LV V1 mean (test code = 59.50 cm/s 0516385611) LA Volume Index (BP) 39.6 mL/m2 (test code = 4687007701) LA volume (BP) (test 57.2 mL code = 4784869622) LAV(MOD-sp2) (test code 59.90 mL = 7386508746) AV regurgitation 482.7 ms pressure 1/2 time (test code = 6402020824) AI dec slope (test code 212.30 cm/s2 = 9203715273) AI max amrita (test code = 349.90 cm/s 1673266793) AI max PG (test code = 49.00 mm[Hg] 5801766215) LVIDD (test code = 3.90 cm 9766565979) Left Ventricular End 66.7 mL Diastolic Volume by Teichholz Method (test code = 2097964) EF(Teich) (test code = 67.60 % 2747817579) FS (test code = 37 % 6461279659) EF - 2D (test code = 67.60 % 90834436) IVS (test code = 1.22 cm 3069587607) Interventricular Septum 1.22 cm Diastolic Thickness by 2D (test code = 5590314) LVPWD (test code = 1.12 cm 2003417601) PW (test code = 1.12 cm 0.6-1.8 8266550068) LVIDS (test code = 2.47 cm 6313990340) Left Ventricular End 21.6 mL Systolic Volume by Teichholz Method (test code = 0780460) Aortic valve mean 210.4 cm/s velocity (test code = 1155910751) Ao peak amrita (test code 307.4 cm/s = 5195030044) Ao VTI (test code = 68.2 cm 4833847703) AV area by cont VTI 0.6 cm2 (test code = 1979970469) AV area peak amrita (test 0.6 cm2 code = 4189620023) Ao max PG (test code = 37.80 mm[Hg] 0085059689) AV peak gradient (test 37.8 mmHg code = 8648689272) AV valve area (test 0.63 cm2 code = 5604239782) AV mean gradient (test 19.8 mmHg code = 8280394789) Radiology Study observation (narrative) (test code = 81761-4) ROBERT (test code = ROBERT) ?Left?Ventricle: Left [...] 2D, color flow Doppler and spectral Doppler. [facility] [id number] 05:06:36 Test Item Value Reference Range Interpretation [...] not appl icable for dialysis patien ts Professor Of Radiology ID - ARMAND [id number] 05:06:35 Test Item Value Reference Range Interpretation Comments MAGNESIUM (BEAKER) 1.7 mg/dL 1.6-2.6 Specimen slightly (test code = 627) hemolyzed Professor Of Radiology ID - ARMAND LPROTHROMBIN TIME/[id number] 04:57:12 Test Item Value Reference Range Interpretation [...] mechanical heart valves.CBC W/PLT COUNT & AUTO [id number] 04:49:51 Test Item Value Reference Range Interpretation [...] 0.00-1.00 PERCENT (BEAKER) (test code = 2801) [id number] 10:05:40 Test Item Value Reference Range Interpretation Comments PARTIAL THROMBOPLASTIN TIME 49.3 seconds 22.5-36.0 H (BEAKER) (test code = 760) [id number] 07:34:27 Test Item Value Reference Range Interpretation Comments PARTIAL THROMBOPLASTIN TIME > seconds 22.5-36.0 HH (BEAKER) (test code = 760) [id number] 07:21:03 Test Item Value Reference Range Interpretation Comments MAGNESIUM (BEAKER) (test code = 2.0 mg/dL 1.6-2.6 627) Professor Of Radiology ID - ARMAND LBASIC METABOLIC [id number] 07:21:02 Test Item Value Reference Range Interpretation [...] not appl icable for dialysis patien ts Professor Of Radiology ID - PIDYLAN LPROTHROMBIN TIME/[id number] 07:11:04 Test Item Value Reference Range Interpretation [...] mechanical heart valves.CBC W/PLT COUNT & AUTO [id number] 06:42:15 Test Item Value Reference Range Interpretation [...] 0.00-1.00 PERCENT (BEAKER) (test code = 2801) [id number] 01:06:03 Test Item Value Reference Range Interpretation Comments PARTIAL THROMBOPLASTIN TIME 90.3 seconds 22.5-36.0 H (BEAKER) (test code = 760) [id number] 23:34:15 Test Item Value Reference Range Interpretation Comments PARTIAL THROMBOPLASTIN TIME > seconds 22.5-36.0 HH (BEAKER) (test code = 760) [id number] 14:56:56 Test Item Value Reference Range Interpretation Comments PARTIAL THROMBOPLASTIN TIME 40.2 seconds 22.5-36.0 H (BEAKER) (test code = 760) [id number] 12:49:04 Test Item Value Reference Range Interpretation Comments PARTIAL THROMBOPLASTIN TIME 139.9 seconds 22.5-36.0 H (BEAKER) (test code = 760) [id number] 08:00:43 Test Item Value Reference Range Interpretation Comments MAGNESIUM (BEAKER) (test code = 1.5 mg/dL 1.6-2.6 L 627) Professor Of Radiology ID - MARCOBASIC METABOLIC [id number] 08:00:42 Test Item Value Reference Range Interpretation [...] not appl icable for dialysis patien ts Professor Of Radiology ID - [id number] 06:54:28 Test Item Value Reference Range Interpretation Comments PARTIAL THROMBOPLASTIN TIME 180.9 seconds 22.5-36.0 HH (BEAKER) (test code = 760) [id number] 06:30:25 Test Item Value Reference Range Interpretation Comments PARTIAL THROMBOPLASTIN TIME 61.3 seconds 22.5-36.0 H (BEAKER) (test code = 760) [id number] 04:16:14 Test Item Value Reference Range Interpretation Comments PARTIAL THROMBOPLASTIN TIME > seconds 22.5-36.0 HH (BEAKER) (test code = 760) PROTHROMBIN TIME/[id number] 03:42:33 Test Item Value Reference Range Interpretation [...] mechanical heart valves.CBC W/PLT COUNT & AUTO [id number] 03:35:52 Test Item Value Reference Range Interpretation [...] 0.00-1.00 PERCENT (BEAKER) (test code = 2801) [id number] 20:27:00 Test Item Value Reference Range Interpretation Comments PARTIAL THROMBOPLASTIN TIME 53.4 seconds 22.5-36.0 H (BEAKER) (test code = 760) [id number] 18:26:32 Test Item Value Reference Range Interpretation Comments PARTIAL THROMBOPLASTIN TIME 112.2 seconds 22.5-36.0 H (BEAKER) (test code = 760) [id number] 10:53:07 Test Item Value Reference Range Interpretation Comments PARTIAL THROMBOPLASTIN TIME 48.7 seconds 22.5-36.0 H (BEAKER) (test code = 760) [id number] 04:20:11 Test Item Value Reference Range Interpretation Comments PARTIAL THROMBOPLASTIN TIME 50.2 seconds 22.5-36.0 H (BEAKER) (test code = 760) [id number] 02:16:45 Test Item Value Reference Range Interpretation Comments PARTIAL THROMBOPLASTIN TIME 120.7 seconds 22.5-36.0 H (BEAKER) (test code = 760) [id number] 01:49:02 Test Item Value Reference Range Interpretation Comments MAGNESIUM (BEAKER) (test code = 1.7 mg/dL 1.6-2.6 627) Professor Of Radiology ID - [id number] 01:49:02 Test Item Value Reference Range Interpretation Comments PHOSPHORUS (BEAKER) (test code = 4.7 mg/dL 2.3-4.7 604) Professor Of Radiology ID - BSBASIC METABOLIC [id number] 01:49:01 Test Item Value Reference Range Interpretation [...] G3b Moderately to s everely 30-44 G4 Sever ly decreased 15-29 G5 Kidney failure <15Repo rted eGFR is based on the CKD-EPI 2020 equation t hat does not use a race coefficientEsti mated GFR is not as accur ate as Creatinine [place] in predicting glom erular filtration rate . Estimated GFR is not appl icable for dialysis patien ts Professor Of Radiology ID - BSPROTHROMBIN TIME/[id number] 01:46:19 Test Item Value Reference Range Interpretation [...] mechanical heart valves.CBC W/PLT COUNT & AUTO [id number] 01:29:16 Test Item Value Reference Range Interpretation [...] H PERCENT (BEAKER) (test code = 2801) [id number] 18:43:50 Test Item Value Reference Range Interpretation Comments PARTIAL THROMBOPLASTIN TIME 56.0 seconds 22.5-36.0 H (BEAKER) (test code = 760) [id number] 16:49:50 Test Item Value Reference Range Interpretation Comments PARTIAL THROMBOPLASTIN TIME 123.0 seconds 22.5-36.0 H (BEAKER) (test code = 760) [id number] 08:57:26 Test Item Value Reference Range Interpretation Comments PARTIAL THROMBOPLASTIN TIME 48.3 seconds 22.5-36.0 H (BEAKER) (test code = 760) [id number] 05:52:08 Test Item Value Reference Range Interpretation Comments PARTIAL THROMBOPLASTIN TIME 134.4 seconds 22.5-36.0 H (BEAKER) (test code = 760) PROTHROMBIN TIME/[id number] 05:18:02 Test Item Value Reference Range Interpretation Comments PROTIME (BEAKER) (test code = 14.1 seconds 11.9-14.2 759) INR (BEAKER) (test code = 370) 1.16 <=5.90 RECOMMENDED COUMADIN/WARFARIN INR THERAPY RANGESSTANDARD DOSE: 2.0 - 3.0 Includes: PROPHYLAXIS for venous thrombosis, systemic embolization; TREATMENT for venous thrombosis and/or pulmonary embolus.HIGH RISK: Target INR is 2.5-3.5 for patients with mechanical heart valves.[id number] 05:06:39 Test Item Value Reference Range Interpretation Comments PHOSPHORUS (BEAKER) (test code = 4.9 mg/dL 2.3-4.7 H 604) Professor Of Radiology ID - BSBASIC METABOLIC [id number] 05:06:38 Test Item Value Reference Range Interpretation [...] not appl icable for dialysis patien ts Professor Of Radiology ID - [id number] 05:06:38 Test Item Value Reference Range Interpretation Comments MAGNESIUM (BEAKER) (test code = 1.7 mg/dL 1.6-2.6 627) Professor Of Radiology ID - BSCBC W/PLT COUNT & AUTO [id number] 04:48:51 Test Item Value Reference Range Interpretation [...] 0.00-1.00 PERCENT (BEAKER) (test code = 2801) [id number] 21:33:18 Test Item Value Reference Range Interpretation Comments PARTIAL THROMBOPLASTIN TIME 51.5 seconds 22.5-36.0 H (BEAKER) (test code = 760) HEMOGLOBIN AND [id number] 18:35:26 Test Item Value Reference Range Interpretation Comments HEMOGLOBIN (BEAKER) (test code = 9.5 GM/DL 11.2-15.7 L 410) HEMATOCRIT (BEAKER) (test code = 30.9 % 34.1-44.9 L 411) Professor Of Radiology ID - [id number] 14:30:55 Test Item Value Reference Range Interpretation Comments PARTIAL THROMBOPLASTIN TIME 59.3 seconds 22.5-36.0 H (BEAKER) (test code = 760) [id number] 06:21:11 Test Item Value Reference Range Interpretation Comments PARTIAL THROMBOPLASTIN TIME 62.1 seconds 22.5-36.0 H (BEAKER) (test code = 760) PROTHROMBIN TIME/[id number] 03:22:14 Test Item Value Reference Range Interpretation Comments PROTIME (BEAKER) (test code = 14.8 seconds 11.9-14.2 H 759) INR (BEAKER) (test code = 370) 1.23 <=5.90 RECOMMENDED COUMADIN/WARFARIN INR THERAPY RANGESSTANDARD DOSE: 2.0 - 3.0 Includes: PROPHYLAXIS for venous thrombosis, systemic embolization; TREATMENT for venous thrombosis and/or pulmonary embolus.HIGH RISK: Target INR is 2.5-3.5 for patients with mechanical heart valves.[id number] 03:16:55 Test Item Value Reference Range Interpretation Comments MAGNESIUM (BEAKER) (test code = 2.2 mg/dL 1.6-2.6 627) Professor Of Radiology ID - [id number] 03:16:55 Test Item Value Reference Range Interpretation Comments PHOSPHORUS (BEAKER) (test code = 3.8 mg/dL 2.3-4.7 604) Professor Of Radiology ID - BSBASIC METABOLIC [id number] 03:16:54 Test Item Value Reference Range Interpretation [...] (test code = 697) EGFR (BEAKER) 94 Interpretati on of eGFR (test code = mL/min/1.73 values [...] not appl icable for dialysis patien ts Professor Of Radiology ID - BSCBC W/PLT COUNT & AUTO [id number] 02:57:48 Test Item Value Reference Range Interpretation [...] PERCENT (BEAKER) (test code = 2801) Prepare [id number] 23:54:00 Test Item Value Reference Range Interpretation Comments CROSSMATCH (test code = 2264) COMPATIBLE Unit ABO (test code = A Pos 2780823) UNIT NUMBER (test code = [id number] 934-0) Status (test code = 1552632) TX_TIMEINCHART Blood Bank Product (test code RED BLOOD CELLS = 2263) PRODUCT CODE (test code = G9314B35 933-2) [facility] [id number] 23:54:00 Test Item Value Reference Range Interpretation Comments CROSSMATCH (test code = 2264) COMPATIBLE Unit ABO (test code = A Pos 0257539) UNIT NUMBER (test code = [id number] 934-0) Status (test code = 4750355) TX_TIMEINCHART Blood Bank Product (test code RED BLOOD CELLS = 2263) PRODUCT CODE (test code = R0315C75 933-2) [facility] [id number] 23:54:00 Test Item Value Reference Range Interpretation Comments CROSSMATCH (test code = 2264) COMPATIBLE Unit ABO (test code = A Pos 9109575) UNIT NUMBER (test code = [id number] 934-0) Status (test code = 8702016) TX_TIMEINCHART Blood Bank Product (test code RED BLOOD CELLS = 2263) PRODUCT CODE (test code = U7239A50 933-2) [facility] [id number] 23:54:00 Test Item Value Reference Range Interpretation Comments CROSSMATCH (test code = 2264) COMPATIBLE Unit ABO (test code = A Pos 8111418) UNIT NUMBER (test code = [id number] 934-0) Status (test code = 5268005) TX_TIMEINCHART Blood Bank Product (test code RED BLOOD CELLS = 2263) PRODUCT CODE (test code = C3399S84 933-2) [facility] [id number] 23:54:00 Test Item Value Reference Range Interpretation Comments CROSSMATCH (test code = 2264) COMPATIBLE Unit ABO (test code = A Pos 3965121) UNIT NUMBER (test code = [id number] 934-0) Status (test code = 2662760) TX_TIMEINCHART Blood Bank Product (test code RED BLOOD CELLS = 2263) PRODUCT CODE (test code = F0773X64 933-2) [facility] [id number] 23:54:00 Test Item Value Reference Range Interpretation Comments CROSSMATCH (test code = 2264) COMPATIBLE Unit ABO (test code = A Pos 8516319) UNIT NUMBER (test code = [id number] 934-0) Status (test code = 8964324) TX_TIMEINCHART Blood Bank Product (test code RED BLOOD CELLS = 2263) PRODUCT CODE (test code = V6239S64 933-2) [facility] [id number] 21:46:53 Test Item Value Reference Range Interpretation Comments HEMOGLOBIN (BEAKER) (test code = 9.0 GM/DL 11.2-15.7 L 410) HEMATOCRIT (BEAKER) (test code = 30.5 % 34.1-44.9 L 411) Professor Of Radiology ID - [id number] Echo W/Doppler(CW/PW/Color)2022-05-21 18:02:14Ejection FractionSLEH ECHO [facility] Echo W/Doppler(CW/PW/Color)2022-05-21 18:02:14Ejection FractionSLEH ECHO [facility] Echo W/Doppler(CW/PW/Color) 2022-05-21 18:02:14Ejection FractionSLEH ECHO [facility] Echo W/Doppler(CW/PW/Color)2022-05-21 18:02:14Ejection FractionSLE ECHO [facility] Echo W/Doppler(CW/PW/Color)2022-05-21 18:02:14Ejection FractionSLEH ECHO [facility] Echo W/Doppler(CW/PW/Color) 2022-05-21 18:02:14[facility] 15:07:17 Test Item Value Reference Range Interpretation Comments PARTIAL THROMBOPLASTIN TIME 68.4 seconds 22.5-36.0 H (BEAKER) (test code = 760) PROTHROMBIN TIME/[id number] 15:05:56 Test Item Value Reference Range Interpretation Comments PROTIME (BEAKER) (test code = 15.5 seconds 11.9-14.2 H 759) INR (BEAKER) (test code = 370) 1.31 <=5.90 RECOMMENDED COUMADIN/WARFARIN INR THERAPY RANGESSTANDARD DOSE: 2.0 - 3.0 Includes: PROPHYLAXIS for venous thrombosis, systemic embolization; TREATMENT for venous thrombosis and/or pulmonary embolus.HIGH RISK: Target INR is 2.5-3.5 for patients with mechanical heart valves.TSH/FREE T4 IF [id number] 13:50:00 Test Item Value Reference Range Interpretation Comments THYROID STIMULATING HORMONE 1.746 uIU/mL 0.350-4.940 (BEAKER) (test code = 772) Professor Of Radiology ID - ARMAND LHEMOGLOBIN AND [id number] 13:00:10 Test Item Value Reference Range Interpretation Comments HEMOGLOBIN (BEAKER) (test code = 9.0 GM/DL 11.2-15.7 L 410) HEMATOCRIT (BEAKER) (test code = 29.3 % 34.1-44.9 L 411) Professor Of Radiology ID - [id number] 08:55:39 Test Item Value Reference Range Interpretation Comments PARTIAL THROMBOPLASTIN TIME 70.0 seconds 22.5-36.0 H (BEAKER) (test code = 760) [id number] 05:39:20 Test Item Value Reference Range Interpretation Comments PHOSPHORUS (BEAKER) (test code = 3.3 mg/dL 2.3-4.7 604) Professor Of Radiology ID - MARCOBASIC METABOLIC [id number] 05:39:19 Test Item Value Reference Range Interpretation [...] not appl icable for dialysis patien ts Professor Of Radiology ID - [id number] 05:39:19 Test Item Value Reference Range Interpretation Comments MAGNESIUM (BEAKER) (test code = 1.6 mg/dL 1.6-2.6 627) Professor Of Radiology ID - MARCOCBC W/PLT COUNT & AUTO [id number] 05:18:48 Test Item Value Reference Range Interpretation [...] 0.00-1.00 PERCENT (BEAKER) (test code = 2801) [id number] 01:34:38 Test Item Value Reference Range Interpretation Comments PARTIAL THROMBOPLASTIN TIME 94.3 seconds 22.5-36.0 H (BEAKER) (test code = 760) PROTHROMBIN TIME/[id number] 01:32:54 Test Item Value Reference Range Interpretation Comments PROTIME (BEAKER) (test code = 15.8 seconds 11.9-14.2 H 759) INR (BEAKER) (test code = 370) 1.35 <=5.90 RECOMMENDED COUMADIN/WARFARIN INR THERAPY RANGESSTANDARD DOSE: 2.0 - 3.0 Includes: PROPHYLAXIS for venous thrombosis, systemic embolization; TREATMENT for venous thrombosis and/or pulmonary embolus.HIGH RISK: Target INR is 2.5-3.5 for patients with mechanical heart valves.HEMOGLOBIN AND [id number] 20:48:52 Test Item Value Reference Range Interpretation Comments HEMOGLOBIN (BEAKER) (test code = 8.6 GM/DL 11.2-15.7 L 410) HEMATOCRIT (BEAKER) (test code = 27.9 % 34.1-44.9 L 411) Professor Of Radiology ID - [id number] 17:34:13 Test Item Value Reference Range Interpretation Comments PARTIAL THROMBOPLASTIN TIME 53.7 seconds 22.5-36.0 H (BEAKER) (test code = 760) PROTHROMBIN TIME/[id number] 17:33:32 Test Item Value Reference Range Interpretation Comments PROTIME (BEAKER) (test code = 16.0 seconds 11.9-14.2 H 759) INR (BEAKER) (test code = 370) 1.37 <=5.90 RECOMMENDED COUMADIN/WARFARIN INR THERAPY RANGESSTANDARD DOSE: 2.0 - 3.0 Includes: PROPHYLAXIS for venous thrombosis, systemic embolization; TREATMENT for venous thrombosis and/or pulmonary embolus.HIGH RISK: Target INR is 2.5-3.5 for patients with mechanical heart valves.[id number] 13:24:26 Test Item Value Reference Range Interpretation Comments PARTIAL THROMBOPLASTIN TIME 70.7 seconds 22.5-36.0 H (BEAKER) (test code = 760) HEMOGLOBIN AND [id number] 13:10:45 Test Item Value Reference Range Interpretation Comments HEMOGLOBIN (BEAKER) (test code = 8.4 GM/DL 11.2-15.7 L 410) HEMATOCRIT (BEAKER) (test code = 27.0 % 34.1-44.9 L 411) Professor Of Radiology ID - 6000Prepare [id number] 08:19:00 Test Item Value Reference Range Interpretation Comments CROSSMATCH (test code = 2264) COMPATIBLE Unit ABO (test code = A Pos 6103847) UNIT NUMBER (test code = [id number] 934-0) Status (test code = 4558324) ISSUED Blood Bank Product (test code RED BLOOD CELLS = 2263) PRODUCT CODE (test code = R5564W51 933-2) [facility] [id number] 08:19:00 Test Item Value Reference Range Interpretation Comments CROSSMATCH (test code = 2264) COMPATIBLE Unit ABO (test code = A Pos 7679534) UNIT NUMBER (test code = [id number] 934-0) Status (test code = 7265168) ISSUED Blood Bank Product (test code RED BLOOD CELLS = 2263) PRODUCT CODE (test code = Y5397R20 933-2) [facility] 05:24:24 Test Item Value Reference Range Interpretation Comments PARTIAL THROMBOPLASTIN TIME 91.6 seconds 22.5-36.0 H (BEAKER) (test code = 760) [id number] 04:22:23 Test Item Value Reference Range Interpretation Comments MAGNESIUM (BEAKER) (test code = 1.8 mg/dL 1.6-2.6 627) Professor Of Radiology ID - ARMAND [id number] 04:22:23 Test Item Value Reference Range Interpretation Comments PHOSPHORUS (BEAKER) (test code = 4.1 mg/dL 2.3-4.7 604) Professor Of Radiology ID - PIAYA LBASIC METABOLIC [id number] 04:22:22 Test Item Value Reference Range Interpretation [...] not appl icable for dialysis patien ts Professor Of Radiology ID - ARMAND LPROTHROMBIN TIME/[id number] 03:58:55 Test Item Value Reference Range Interpretation [...] mechanical heart valves.CBC W/PLT COUNT & AUTO [id number] 03:54:23 Test Item Value Reference Range Interpretation [...] 0.00-1.00 PERCENT (BEAKER) (test code = 2801) [id number] 23:23:33 Test Item Value Reference Range Interpretation Comments PARTIAL THROMBOPLASTIN TIME 63.2 seconds 22.5-36.0 H (BEAKER) (test code = 760) HEMOGLOBIN AND [id number] 21:26:00 Test Item Value Reference Range Interpretation Comments HEMOGLOBIN (BEAKER) (test code = 7.6 GM/DL 11.2-15.7 L 410) HEMATOCRIT (BEAKER) (test code = 24.8 % 34.1-44.9 L 411) Professor Of Radiology ID - [id number] 17:30:54 Test Item Value Reference Range Interpretation Comments PARTIAL THROMBOPLASTIN TIME 37.0 seconds 22.5-36.0 H (BEAKER) (test code = 760) PROTHROMBIN TIME/[id number] 17:29:53 Test Item Value Reference Range Interpretation Comments PROTIME (BEAKER) (test code = 18.3 seconds 11.9-14.2 H 759) INR (BEAKER) (test code = 370) 1.62 <=5.90 RECOMMENDED COUMADIN/WARFARIN INR THERAPY RANGESSTANDARD DOSE: 2.0 - 3.0 Includes: PROPHYLAXIS for venous thrombosis, systemic embolization; TREATMENT for venous thrombosis and/or pulmonary embolus.HIGH RISK: Target INR is 2.5-3.5 for patients with mechanical heart valves.PROTHROMBIN TIME/[id number] 12:31:00 Test Item Value Reference Range Interpretation Comments PROTIME (BEAKER) (test code = 18.7 seconds 11.9-14.2 H 759) INR (BEAKER) (test code = 370) 1.61 <=5.90 RECOMMENDED COUMADIN/WARFARIN INR THERAPY RANGESSTANDARD DOSE: 2.0 - 3.0 Includes: PROPHYLAXIS for venous thrombosis, systemic embolization; TREATMENT for venous thrombosis and/or pulmonary embolus.HIGH RISK: Target INR is 2.5-3.5 for patients with mechanical heart valves.HEMOGLOBIN AND [id number] 12:24:20 Test Item Value Reference Range Interpretation Comments HEMOGLOBIN (BEAKER) (test code = 7.4 GM/DL 11.2-15.7 L 410) HEMATOCRIT (BEAKER) (test code = 23.7 % 34.1-44.9 L 411) Professor Of Radiology ID - 6000POC-Glucose [id number] 05:40:23 Test Item Value Reference Range Interpretation Comments POC-Glucose Meter (test 78 mg/dL 70-110 : TE STED AT [facility] code = 1538) [address] [place] [address], [facility] 30: Professor Of Radiology/Techni valarie ID = [id number] for Yumi, James Lab Interpretation (test Normal code = 69742-7) [facility] [id number] 05:40:23 Test Item Value Reference Range Interpretation Comments POC-Glucose Meter (test 78 mg/dL 70-110 : TE STED AT [facility] code = 1538) [address] [place] [place] [address], [facility] 30: Professor Of Radiology/Techni valarie ID = [id number] for Yumi, James Lab Interpretation (test Normal code = 02476-5) [facility]-Glucose [id number] 05:40:23 Test Item Value Reference Range Interpretation Comments POC-Glucose Meter (test 78 mg/dL 70-110 : TE STED AT [facility] code = 1538) [address] [place] [address], [facility] 30: Professor Of Radiology/Techni valarie ID = [id number] for Yumi, James Lab Interpretation (test Normal code = 47063-2) [facility] [id number] 05:40:23 Test Item Value Reference Range Interpretation Comments POC-Glucose Meter (test 78 mg/dL 70-110 : TE STED AT [facility] code = 1538) [address] [place] [address], [facility] 30: Professor Of Radiology/Techni valarie ID = [id number] for Yumi, James Lab Interpretation (test Normal code = 28449-6) [facility]-Glucose [id number] 05:40:23 Test Item Value Reference Range Interpretation Comments POC-Glucose Meter (test 78 mg/dL 70-110 : TE STED AT [facility] code = 1538) [address] [place] [address], 770 30: Professor Of Radiology/Techni valarie ID = [id number] for Yumi, James Lab Interpretation (test Normal code = 02461-0) [facility]-Glucose [id number] 05:40:23 Test Item Value Reference Range Interpretation Comments POC-Glucose Meter (test 78 mg/dL 70-110 : TE STED AT [facility] code = 1538) [address] [place] [place] [address], 770 30: Professor Of Radiology/Techni valarie ID = [id number] for Yumi, James Lab Interpretation (test Normal code = 52625-7) [facility]-Glucose [id number] 05:40:23 Test Item Value Reference Range Interpretation Comments POC-Glucose Meter (test 78 mg/dL 70-110 : TE STED AT [facility] code = 1538) [address] [place] [address], 770 30: Professor Of Radiology/Techni valarie ID = [id number] for YumiJames chirinos Lab Interpretation (test Normal code = 19443-6) [facility]-Glucose [id number] 05:40:23 Test Item Value Reference Range Interpretation Comments POC-Glucose Meter (test 78 mg/dL 70-110 : TE STED AT [facility] code = 1538) [address] [place] [address], 770 30: Professor Of Radiology/Techni valarie ID = [id number] for Yumi, James Lab Interpretation (test Normal code = 32271-1) [facility]-GLUCOSE [id number] 05:40:23 Test Item Value Reference Range Interpretation Comments POC-GLUCOSE METER 78 mg/dL 70-110 : TESTED A T [facility] 6720 (BEAKER) (test code = RIPNE Joan [facility], 1538) [address]: Professor Of Radiology/Techni valarie ID = [id number] for Dilo James cuevas [id number] 04:23:09 Test Item Value Reference Range Interpretation Comments MAGNESIUM (BEAKER) (test code = 2.1 mg/dL 1.6-2.6 627) Professor Of Radiology ID - ARMAND [id number] 04:23:09 Test Item Value Reference Range Interpretation Comments PHOSPHORUS (BEAKER) (test code = 1.9 mg/dL 2.3-4.7 L 604) Professor Of Radiology ID - ARMAND LBASIC METABOLIC [id number] 04:23:08 Test Item Value Reference Range Interpretation [...] not appl icable for dialysis patien ts Professor Of Radiology ID - ARMAND LPROTHROMBIN TIME/[id number] 04:07:24 Test Item Value Reference Range Interpretation [...] mechanical heart valves.CBC W/PLT COUNT & AUTO [id number] 04:00:27 Test Item Value Reference Range Interpretation [...] PERCENT (BEAKER) (test code = 2801) POCT-GLUCOSE [id number] 23:14:02 Test Item Value Reference Range Interpretation Comments POC-GLUCOSE METER 86 mg/dL 70-110 : TESTED A T [facility] 6720 (BEAKER) (test code = [place], 1538) [address]: Professor Of Radiology/Techni valarie ID = [id number] for Robles Hanson BUN AND CREATININE [id number] 21:02:50 Test Item Value Reference Range Interpretation Comments BLOOD UREA 10 mg/dL 7-21 NITROGEN (BEAKER) (test code = 354) CREATININE 0.79 mg/dL 0.57-1.25 (BEAKER) (test code = 358) BUN/CREAT RATIO 13 For a normal individual on (BEAKER) (test a normal diet , the code = reference inter [place] for the [id number]) mass ratio rang es between 12:1 and [...] not appl icable for dialysis patien ts Professor Of Radiology ID - [id number] 21:02:49 Test Item Value Reference Range Interpretation Comments MAGNESIUM (BEAKER) (test code = 2.1 mg/dL 1.6-2.6 627) Professor Of Radiology ID - [id number] 21:02:49 Test Item Value Reference Range Interpretation Comments POTASSIUM (BEAKER) (test code = 3.7 meq/L 3.5-5.1 379) Professor Of Radiology ID - BSHEMOGLOBIN AND [id number] 20:18:40 Test Item Value Reference Range Interpretation Comments HEMOGLOBIN (BEAKER) (test code = 7.5 GM/DL 11.2-15.7 L 410) HEMATOCRIT (BEAKER) (test code = 23.4 % 34.1-44.9 L 411) Professor Of Radiology ID - [id number], CTA [id number] 19:41:00Unlisted Reason for Exam - Click Yes and Enter Reason Below->YesUnlisted Reason for Exam->Looking for mesenteric ischemia. [facility] : 1955 Sex: FFINAL REPORT [...] them to the physician. Signed: Ayden Goff Verified Date/Time: 05/18/2022 19:41:16 POCT-GLUCOSE [id number] 19:08:28 Test Item Value Reference Range Interpretation Comments POC-GLUCOSE METER 91 mg/dL 70-110 : TESTED A T [facility] 6720 (BEAKER) (test code = [place], 1538) [address]: Professor Of Radiology/Techni valarie ID = [id number] for Scarlet Maravilla HIGH SENSITIVITY TROPONIN [id number] 16:22:26 Test Item Value Reference Range Interpretation Comments HIGH SENSITIVITY TROPONIN I (test 9 pg/ml <=17 code = 5592730) Professor Of Radiology ID - BSThe PHYSICS TUTOR STAT High Sensitivity Troponin-I results should be used in conjunctionwith other diagnostic information such as ECG, clinical observations and information, and patient symptoms to aid in the diagnosis of [place].Urinalysis w/Microscopic + Reflex to [id number] 16:12:56 Test Item Value Reference Range Interpretation Comments Color, UA (test code Yellow = 5778-6) Clarity, UA (test Hazy code = 5767-9) Specific [place], UA 1.045 1.001-1.035 H (test code = 5811-5) pH, UA (test code = 6.5 5.0-8.0 5803-2) Protein, UA (test 20 mg/dL Negative A code = 02922-2) Glucose, UA (test Negative Negative code = 365) Ketones, UA (test Negative Negative code = 2514-8) Bilirubin, UA (test Negative Negative code = 38025-1) Blood, UA (test code Moderate Negative A = 76123-8) Nitrite, UA (test Negative Negative code = 5802-4) Leukocytes, UA (test Large Negative A code = 5799-2) Urobilinogen, UA 0.2 0.2-1.0 (test code = 70425-8) RBC, UA (test code = 34 See_Comment [Autom ated 10781-3) message] The system which generated this result [...] . Bacteria, UA (test Few code = 11471-1) Squam Epithel, UA <1 See_Comment [Automate d (test code = 52937-8) messag e] The system which generated this result transmit bandar reference range : /HPF. The reference range was not used to interpret this result as normal/abnormal . Specimen Source (test code = 2795) ROBERT (test code = ROBERT) Professor Of Radiology ID - [auto]Professor Of Radiology ID - tech Lab Interpretation Abnormal (test code = 08997-1) [facility] Reflex to Culture 2022-05-18 16:12:56 Test Item Value Reference Range Interpretation Comments Color, UA (test code Yellow = 5778-6) Clarity, UA (test Hazy code = 5767-9) Specific [place], UA 1.045 1.001-1.035 H (test code = 5811-5) pH, UA (test code = 6.5 5.0-8.0 5803-2) Protein, UA (test 20 mg/dL Negative A code = 39425-0) Glucose, UA (test Negative Negative code = 365) Ketones, UA (test Negative Negative code = 2514-8) Bilirubin, UA (test Negative Negative code = 90592-5) Blood, UA (test code Moderate Negative A = 01908-1) Nitrite, UA (test Negative Negative code = 5802-4) Leukocytes, UA (test Large Negative A code = 5799-2) Urobilinogen, UA 0.2 0.2-1.0 (test code = 04494-8) RBC, UA (test code = 34 See_Comment [Autom ated 97383-3) message] The system which generated this result [...] . Bacteria, UA (test Few code = 11780-7) Squam Epithel, UA <1 See_Comment [Automate d (test code = 76749-4) messag e] The system which generated this result transmit bandar reference range : /HPF. The reference range was not used to interpret this result as normal/abnormal . Specimen Source (test code = 2795) ROBERT (test code = ROBERT) Professor Of Radiology ID - [auto]Professor Of Radiology ID - tech Lab Interpretation Abnormal (test code = 21022-2) [facility] + Reflex to Culture 2022-05-18 16:12:56 Test Item Value Reference Range Interpretation Comments Color, UA (test code Yellow = 5778-6) Clarity, UA (test Hazy code = 5767-9) Specific [place], UA 1.045 1.001-1.035 H (test code = 5811-5) pH, UA (test code = 6.5 5.0-8.0 5803-2) Protein, UA (test 20 mg/dL Negative A code = 77595-4) Glucose, UA (test Negative Negative code = 365) Ketones, UA (test Negative Negative code = 2514-8) Bilirubin, UA (test Negative Negative code = 81201-6) Blood, UA (test code Moderate Negative A = 23280-2) Nitrite, UA (test Negative Negative code = 5802-4) Leukocytes, UA (test Large Negative A code = 5799-2) Urobilinogen, UA 0.2 0.2-1.0 (test code = 51049-1) RBC, UA (test code = 34 See_Comment [Autom ated 07328-8) message] The system which generated this result [...] . Bacteria, UA (test Few code = 81359-5) Squam Epithel, UA <1 See_Comment [Automate d (test code = 08535-6) messag e] The system which generated this result transmit bandar reference range : /HPF. The reference range was not used to interpret this result as normal/abnormal . Specimen Source (test code = 2795) ROBERT (test code = ROBERT) Professor Of Radiology ID - [auto]Professor Of Radiology ID - tech Lab Interpretation Abnormal (test code = 82739-8) [facility] + Reflex to Culture 2022-05-18 16:12:56 Test Item Value Reference Range Interpretation Comments Color, UA (test code Yellow = 5778-6) Clarity, UA (test Hazy code = 5767-9) Specific [place], UA 1.045 1.001-1.035 H (test code = 5811-5) pH, UA (test code = 6.5 5.0-8.0 5803-2) Protein, UA (test 20 mg/dL Negative A code = 13422-5) Glucose, UA (test Negative Negative code = 365) Ketones, UA (test Negative Negative code = 2514-8) Bilirubin, UA (test Negative Negative code = 27385-9) Blood, UA (test code Moderate Negative A = 37759-7) Nitrite, UA (test Negative Negative code = 5802-4) Leukocytes, UA (test Large Negative A code = 5799-2) Urobilinogen, UA 0.2 0.2-1.0 (test code = 42663-8) RBC, UA (test code = 34 See_Comment [Autom ated 95612-8) message] The system which generated this result [...] . Bacteria, UA (test Few code = 85680-7) Squam Epithel, UA <1 See_Comment [Automate d (test code = 01071-5) messag e] The system which generated this result transmit bnadar reference range : /HPF. The reference range was not used to interpret this result as normal/abnormal . Specimen Source (test code = 2795) ROBERT (test code = ROBERT) Professor Of Radiology ID - [auto]Professor Of Radiology ID - tech Lab Interpretation Abnormal (test code = 47472-8) [facility] + Reflex to Culture 2022-05-18 16:12:56 Test Item Value Reference Range Interpretation Comments Color, UA (test code Yellow = 5778-6) Clarity, UA (test Hazy code = 5767-9) Specific [place], UA 1.045 1.001-1.035 H (test code = 5811-5) pH, UA (test code = 6.5 5.0-8.0 5803-2) Protein, UA (test 20 mg/dL Negative A code = 01236-2) Glucose, UA (test Negative Negative code = 365) Ketones, UA (test Negative Negative code = 2514-8) Bilirubin, UA (test Negative Negative code = 14856-9) Blood, UA (test code Moderate Negative A = 20131-1) Nitrite, UA (test Negative Negative code = 5802-4) Leukocytes, UA (test Large Negative A code = 5799-2) Urobilinogen, UA 0.2 0.2-1.0 (test code = 72990-1) RBC, UA (test code = 34 See_Comment [Autom ated 94435-0) message] The system which generated this result [...] . Bacteria, UA (test Few code = 13536-4) Squam Epithel, UA <1 See_Comment [Automate d (test code = 97188-5) messag e] The system which generated this result transmit bandar reference range : /HPF. The reference range was not used to interpret this result as normal/abnormal . Specimen Source (test code = 2795) ROBERT (test code = ROBERT) Professor Of Radiology ID - [auto]Professor Of Radiology ID - tech Lab Interpretation Abnormal (test code = 57314-4) [facility] + Reflex to Culture 2022-05-18 16:12:56 Test Item Value Reference Range Interpretation Comments Color, UA (test code Yellow = 5778-6) Clarity, UA (test Hazy code = 5767-9) Specific [place], UA 1.045 1.001-1.035 H (test code = 5811-5) pH, UA (test code = 6.5 5.0-8.0 5803-2) Protein, UA (test 20 mg/dL Negative A code = 77164-3) Glucose, UA (test Negative Negative code = 365) Ketones, UA (test Negative Negative code = 2514-8) Bilirubin, UA (test Negative Negative code = 45080-1) Blood, UA (test code Moderate Negative A = 07703-7) Nitrite, UA (test Negative Negative code = 5802-4) Leukocytes, UA (test Large Negative A code = 5799-2) Urobilinogen, UA 0.2 0.2-1.0 (test code = 85682-0) RBC, UA (test code = 34 See_Comment [Autom ated 15659-6) message] The system which generated this result [...] . Bacteria, UA (test Few code = 51873-3) Squam Epithel, UA See_Comment [Automate d (test code = 37307-3) messag e] The system which generated this result transmit bandar reference range : /HPF. The reference range was not used to interpret this result as normal/abnormal . Specimen Source (test code = 2795) ROBERT (test code = ROBERT) Professor Of Radiology ID - [auto]Professor Of Radiology ID - tech Lab Interpretation Abnormal (test code = 21296-2) [facility] + Reflex to Culture 2022-05-18 16:12:56 Test Item Value Reference Range Interpretation Comments Color, UA (test code Yellow = 5778-6) Clarity, UA (test Hazy code = 5767-9) Specific [place], UA 1.045 1.001-1.035 H (test code = 5811-5) pH, UA (test code = 6.5 5.0-8.0 5803-2) Protein, UA (test 20 mg/dL Negative A code = 47306-0) Glucose, UA (test Negative Negative code = 365) Ketones, UA (test Negative Negative code = 2514-8) Bilirubin, UA (test Negative Negative code = 91324-0) Blood, UA (test code Moderate Negative A = 18540-3) Nitrite, UA (test Negative Negative code = 5802-4) Leukocytes, UA (test Large Negative A code = 5799-2) Urobilinogen, UA 0.2 0.2-1.0 (test code = 74523-4) RBC, UA (test code = 34 See_Comment [Autom ated 24537-7) message] The system which generated this result [...] . Bacteria, UA (test Few code = 92458-2) Squam Epithel, UA See_Comment [Automate d (test code = 74679-1) messag e] The system which generated this result transmit bandar reference range : /HPF. The reference range was not used to interpret this result as normal/abnormal . Specimen Source (test code = 2795) ROBERT (test code = ROBERT) Professor Of Radiology ID - [auto]Professor Of Radiology ID - tech Lab Interpretation Abnormal (test code = 16110-4) [facility] + Reflex to Culture 2022-05-18 16:12:56 Test Item Value Reference Range Interpretation Comments Color, UA (test code Yellow = 5778-6) Clarity, UA (test Hazy code = 5767-9) Specific [place], UA 1.045 1.001-1.035 H (test code = 5811-5) pH, UA (test code = 6.5 5.0-8.0 5803-2) Protein, UA (test 20 mg/dL Negative A code = 19029-9) Glucose, UA (test Negative Negative code = 365) Ketones, UA (test Negative Negative code = 2514-8) Bilirubin, UA (test Negative Negative code = 16749-6) Blood, UA (test code Moderate Negative A = 04558-5) Nitrite, UA (test Negative Negative code = 5802-4) Leukocytes, UA (test Large Negative A code = 5799-2) Urobilinogen, UA 0.2 0.2-1.0 (test code = 06106-3) RBC, UA (test code = 34 See_Comment [Autom ated 91429-4) message] The system which generated this result [...] . Bacteria, UA (test Few code = 79178-6) Squam Epithel, UA See_Comment [Automate d (test code = 43700-1) messag e] The system which generated this result transmit bandar reference range : /HPF. The reference range was not used to interpret this result as normal/abnormal . Specimen Source (test code = 2795) ROBERT (test code = ROBERT) Professor Of Radiology ID - [auto]Professor Of Radiology ID - tech Lab Interpretation Abnormal (test code = 80384-4) [facility] REFLEX URINE [id number] 16:12:56 Test Item Value Reference Range Interpretation [...] = 516) SOURCE(BEAKER) (test code = 2795) Professor Of Radiology ID - [auto]Professor Of Radiology ID - techPROTHROMBIN TIME/[id number] 16:02:01 Test Item Value Reference Range Interpretation Comments PROTIME (BEAKER) (test code = 25.8 seconds 11.9-14.2 H 759) INR (BEAKER) (test code = 370) 2.54 <=5.90 RECOMMENDED COUMADIN/WARFARIN INR THERAPY RANGESSTANDARD DOSE: 2.0 - 3.0 Includes: PROPHYLAXIS for venous thrombosis, systemic embolization; TREATMENT for venous thrombosis and/or pulmonary embolus.HIGH RISK: Target INR is 2.5-3.5 for patients with mechanical heart valves.CALCIUM, [id number] 13:31:38 Test Item Value Reference Range Interpretation [...] 0-0 (BEAKER) (test code = 413) POCT-GLUCOSE [id number] 13:07:25 Test Item Value Reference Range Interpretation Comments POC-GLUCOSE METER 81 mg/dL 70-110 : TESTED A T [facility] 6720 (BEAKER) (test code = [place], 1538) [address]: Professor Of Radiology/Techni valarie ID = [id number] for Scarlet Maravilla B-TYPE NATRIURETIC FACTOR (BNP)2022-05-18 11:38:06 Test Item Value Reference Range Interpretation Comments B-TYPE NATRIURETIC PEPTIDE (BEAKER) 97 pg/mL 0-100 (test code = 700) Professor Of Radiology ID - FANTASMA [id number] 11:34:39 Test Item Value Reference Range Interpretation Comments FIBRINOGEN LEVEL (BEAKER) (test 440 mg/dl 225-434 H code = 658) [id number] 11:32:28 Test Item Value Reference Range Interpretation Comments LIPASE (BEAKER) (test code = 749) 13 U/L 8-78 Professor Of Radiology ID - FANTASMA BCOMPREHENSIVE METABOLIC [id number] 11:32:27 Test Item Value Reference Range Interpretation [...] not appl icable for dialysis patien ts Professor Of Radiology ID - FANTASMA [id number] 11:32:27 Test Item Value Reference Range Interpretation Comments MAGNESIUM (BEAKER) (test code = 1.7 mg/dL 1.6-2.6 627) Professor Of Radiology ID - FANTASMA [id number] 11:32:27 Test Item Value Reference Range Interpretation Comments PHOSPHORUS (BEAKER) (test code = 2.9 mg/dL 2.3-4.7 604) Professor Of Radiology ID - FANTASMA BPT/[id number] 11:21:21 Test Item Value Reference Range Interpretation [...] for patients with mechanical heart valves.LACTIC ACID, [id number] 11:20:59 Test Item Value Reference Range Interpretation Comments LACTATE BLOOD VENOUS (2) (BEAKER) 1.40 mmol/L 0.50-2.20 (test code = 2872) Professor Of Radiology ID - FANTASMA Luke"
[2022-10-14 03:06] LABS: Absolute Lymphocytes (CBC) 1.7 K/uL (0.7-4.9); Hematocrit 30.5 % (36.0-45.0); Lymphocytes % 20.5 % (15.3-44.8); MPV 8.9 fL (7.6-11.3)
[2022-10-14 03:10] LABS: Protime INR 1.91
[2022-10-14] MEDS ORDERED: METOPROLOL TARTRATE 5 MG/5 ML INJ IV ONE ×2 (03:14→05:21)
[2022-10-14 03:26] LABS: Bilirubin Direct 0.1 mg/dL (0-0.2); Bilirubin Indirect, Calculated 0.3 mg/dL (0.2-0.8); Bilirubin Total 0.4 mg/dL (0.2-1.0); Potassium 4.2 mEq/L (3.5-5.1); Protein, Total 7.2 g/dL (6.4-8.2); Troponin High Sensitivity 6.9 pg/mL (<58.9)
[2022-10-14] MEDS ORDERED: METOPROLOL TAR 25 MG TAB ONE (05:06)
[2022-10-14] MEDS ORDERED: NA CHLORIDE 0.9% 500 ML ONE (05:22)
[2022-10-14] MEDS ORDERED: ENOXAPARIN 60 MG/0.6 ML SQ ONE (05:22)
--- NOTE | 2022-10-14 05:22 | ER ---
Nurse's Notes [facility] Name: Michelle Saavedra Age: 67 yrs Sex: Female : 1955 Arrival Date: 10/14/2022 Time: 02:30 Bed 20 Private MD: Diagnosis: Chronic atrial fibrillation;Atrial fibrillation with RVR, palpitations, premature ventricular contractions, atypical chest pain Presentation: 10/14 02:54 Chief complaint: Patient states: last night I started to feel like my heart was racing as6 and my back hurts. Coronavirus screen: At this time, the client does not indicate any symptoms associated with coronavirus-19. Ebola Screen: No symptoms or risks identified at this time. Initial Sepsis Screen: Does the patient meet any 2 criteria? No. Patient's initial sepsis screen is negative. Does the patient have a suspected source of infection? No. Patient's initial sepsis screen is negative. Risk Assessment: Do you want to hurt yourself or someone else? Patient reports no desire to harm self or others. Onset of symptoms was October 13, 2022. 02:54 Acuity: JAKUB 3 as6 02:54 Method Of Arrival: Ambulatory as6 Triage Assessment: 03:11 General: Appears in no apparent distress. comfortable, Behavior is cooperative. Pain: vc1 Complains of pain in back, chest and right little finger Pain does not radiate. Pain currently is 10 out of 10 on a pain scale. EENT: No deficits noted. No signs and/or symptoms were reported regarding the EENT system. Neuro: Level of Consciousness is awake, alert, obeys commands, Oriented to person, place, time, situation, Appropriate for age. Cardiovascular: Reports chest pain, Chest pain is described as severe, Pain is 10 out of 10 on a pain scale. Respiratory: Airway is patent Respiratory effort is even, unlabored, Respiratory pattern is regular, symmetrical. GI: No deficits noted. No signs and/or symptoms were reported involving the gastrointestinal system. : No deficits noted. No signs and/or symptoms were reported regarding the genitourinary system. Derm: No deficits noted. No signs and/or symptoms reported regarding the dermatologic system. Musculoskeletal: Reports pain in back and chest. Historical: - Allergies: 02:54 Morphine; as6 - PMHx: 02:54 Atrial fibrillation; Hypercholesterolemia; Hypertensive disorder; mechanical valve; as6 - Immunization history:: Adult Immunizations up to date, Client reports having NOT received the Covid vaccine. - Social history:: Smoking status: Patient denies any tobacco usage or history of. Screenin:10 Abuse screen: Denies threats or abuse. Nutritional screening: No deficits noted. vc1 Tuberculosis screening: No symptoms or risk factors identified. 03:12 [facility] ED Fall Risk Assessment (Adult) History of falling in the last 3 months, vc1 including since admission No falls in past 3 months (0 pts) Confusion or Disorientation No (0 pts) Intoxicated or Sedated No (0 pts) Impaired Gait No (0 pts) Mobility Assist Device Used No (0 pt) Altered Elimination No (0 pt) Score/Fall Risk Level 0 - 2 = Low Risk Oriented to surroundings, Maintained a safe environment, Educated pt \\T\\ family on fall prevention, incl call for assistance when getting out of bed. Assessment: 03:00 Reassessment: No changes from previously documented assessment. Patient and/or family vc1 updated on plan of care and expected duration. Pain level reassessed. 03:02 Reassessment: Pt states, "I can't take morphine it makes me jittery, they usually give vc1 me fentanyl or dilantin (dilaudid) for pain.". 03:03 Reassessment: ER doctor explained to pt that her provider does not want her to receive vc1 any narcotics, when leaves the room pt states, "then I ain't gonna stay here that long". 03:10 Reassessment: PT states, "I hope my heart goes down soon because I want to go home, I'm vc1 not going to sit here on this hard bed without any pain meds.". 04:00 Reassessment: No changes from previously documented assessment. Patient and/or family vc1 updated on plan of care and expected duration. Pain level reassessed. 05:00 Reassessment: No changes from previously documented assessment. Patient and/or family vc1 updated on plan of care and expected duration. Pain level reassessed. 05:32 Reassessment: Pt states, "Tell him I can't take the pain to quit being an asshole and vc1 give me some pain medicine, or I'll just go home and go to [facility] tomorrow, they will give me pain medicine.". 05:45 Reassessment: Pt stated, "take this stuff off of me, I'm going home, If I start feeling vc1 worse I will just go to a different hospital.". Vital Signs: 02:53 BP 156 / 96; Pulse 93; Resp 14 S; Temp 97.8(O); Pulse Ox 97% on R/A; Weight 46.27 kg as6 (R); Height 5 ft. 3 in. (R); Pain 10/10; 03:00 BP 130 / 70; Pulse 120; Resp 20; Pulse Ox 98% ; vc1 04:00 BP 114 / 67; Pulse 116; Resp 26; Pulse Ox 100% ; vc1 05:00 BP 96 / 69; Pulse 119; Resp 17; Pulse Ox 99% ; vc1 02:53 Body Mass Index 18.07 (46.27 kg, 160.02 cm) as6 02:53 Pain Scale: Adult as6 ED Course: 02:36 Patient arrived in ED. ja2 02:49 Juan Yoder MD is Attending Physician. sp4 02:50 EKG completed in triage. Results shown to MD. vc1 02:55 Triage completed. as6 02:55 Inserted saline lock: 22 gauge in right antecubital area, using aseptic technique. vc1 Blood collected. 03:01 Basic Metabolic Panel Sent. vc1 03:02 Alena Camilo, RN is Primary Nurse. vc1 03:02 CBC with Diff Sent. vc1 03:02 LFT's Sent. vc1 03:02 NT PRO-BNP Sent. vc1 03:02 PT-INR Sent. vc1 03:02 Troponin HS Sent. vc1 03:11 Arm band placed on right wrist. vc1 03:13 Patient maintains SpO2 saturation greater than 95% on room air. vc1 03:13 Patient has correct armband on for positive identification. Bed in low position. Call vc1 light in reach. Client placed on continuous cardiac and pulse oximetry monitoring. NIBP monitoring applied. Warm blanket given. 03:32 XRAY Chest (1 view) In Process Unspecified. EDMS 05:21 Cruz Sabillon MD is Hospitalizing Provider. sp4 06:01 No provider procedures requiring assistance completed. IV discontinued, intact, vc1 bleeding controlled, No redness/swelling at site. Pressure dressing applied. Administered Medications: 03:09 Drug: Metoprolol IVP 5 mg Route: IVP; Site: right antecubital; vc1 06:04 Follow up: Response: No adverse reaction; No change in condition vc1 04:59 Drug: Metoprolol PO 25 mg Route: PO; vc1 06:04 Follow up: Response: No adverse reaction; No change in condition vc1 05:31 Drug: Albumin IVPB 25 grams Volume: 100 ml; Route: IVPB; Site: right antecubital; vc1 06:03 Follow up: IV Status: Pt left before infusion complete; IV Intake: 50ml vc1 05:31 Drug: NS 0.9% IV 500 ml Route: IV; Rate: bolus; Site: right antecubital; vc1 06:04 Follow up: IV Status: Pt left before infusion complete; IV Intake: 125ml vc1 05:31 Drug: Metoprolol IVP 5 mg Route: IVP; Site: right antecubital; vc1 06:04 Follow up: Response: No adverse reaction; No change in condition vc1 05:31 Drug: Enoxaparin Sub-Q 50 mg Route: Sub-Q; Site: right lower abdomen; vc1 06:04 Follow up: Response: No adverse reaction vc1 Medication: 03:13 VIS not applicable for this client. vc1 Intake: 06:03 IV: 50ml; Total: 50ml. vc1 06:04 IV: 125ml; Total: 175ml. vc1 Outcome: 05:22 Decision to Hospitalize by Provider. sp4 05:46 Discharge ordered by . sp4 06:02 Discharged to home ambulatory. vc1 06:02 Condition: good 06:02 Instructed on the need for admit, PT refused to sign paperwork, but also refused to be admitted 06:03 Patient left the ED. vc1 Signatures: Dispatcher [employer] EDMS Sheela Sahu Ashby, RN RN as6 Alena Camilo RN RN vc1 Juan Yoder MD MD sp4
[2022-10-14] MEDS ORDERED: ALBUMIN HUMAN 25% 50 ML IV ONE (05:23)
--- NOTE | 2022-10-14 05:23 | EDPHYS ---
Physician Documentation [facility] Name: Michelle Saavedra Age: 67 yrs Sex: Female : 1955 Arrival Date: 10/14/2022 Time: 02:30 Bed 20 Private MD: ED Physician Juan Yoder HPI: 10/14 02:50 This 67 yrs old Female presents to ER via Unassigned with complaints of Chest sp4 Pain, Back Pain, Finger Injury. 05:22 67-year-old female presents with complaint of chest pain and palpitations. Patient's sp4 heart rate is elevated on arrival. Patient has history of chronic atrial fibrillation on warfarin anticoagulation. History of aortic valve replacement, chronic pain. Patient associated complaint was diffuse body aches. Patient requested Dilaudid or fentanyl on arrival. Patient reports compliance with her home medications. Patient was admitted here 09/09/2022 for hypokalemia, and evaluation of chest pain. Patient's medications include alendronate, atorvastatin, furosemide, gabapentin, metoprolol, pantoprazole, zolpidem, aspirin, dofetilide,, Zetia, hydrocodone 7.5 p.o. twice daily as needed pain, and warfarin sodium 2 mg daily.. Historical: - Allergies: 02:54 Morphine; as6 - PMHx: 02:54 Atrial fibrillation; Hypercholesterolemia; Hypertensive disorder; mechanical valve; as6 - Immunization history:: Adult Immunizations up to date, Client reports having NOT received the Covid vaccine. - Social history:: Smoking status: Patient denies any tobacco usage or history of. ROS: 05:22 Constitutional: Negative for fever, chills, and weight loss, positive generalized body sp4 aches. Eyes: Negative for injury, pain, redness, and discharge, ENT: Negative for injury, pain, and discharge, Neck: Negative for injury, pain, and swelling, Cardiovascular: Negative for edema, positive for chest pain, positive palpitations. Respiratory: Negative for shortness of breath, cough, wheezing, and pleuritic chest pain, Abdomen/GI: Negative for abdominal pain, nausea, vomiting, diarrhea, and constipation, Back: Negative for injury and pain, : Negative for injury, bleeding, discharge, and swelling, MS/Extremity: Negative for injury and deformity, Skin: Negative for injury, rash, and discoloration, Neuro: Negative for headache, weakness, numbness, tingling, and seizure, Psych: Negative for depression, anxiety, Allergy/Immunology: Negative for hives, rash, and allergies Endocrine: Negative for neck swelling, polydipsia, polyuria, polyphagia, and weight changes Hematologic/Lymphatic: Negative for swollen nodes, abnormal bleeding, and unusual bruising Exam: 05:22 Constitutional: This is a well developed, well nourished patient who is awake, alert, sp4 and in no acute distress. Thin female nontoxic-appearing Head/Face: Normocephalic, atraumatic. Eyes: Pupils equal round and reactive to light, extra-ocular motions intact. Lids and lashes normal. Conjunctiva and sclera are not injected. Cornea within normal limits. Periorbital areas with no swelling, redness, or edema. ENT: Nares patent. No nasal discharge, no septal abnormalities noted. Tympanic membranes are normal and external auditory canals are clear. Oropharynx with no redness, swelling, or masses, exudates, or evidence of obstruction, uvula midline. Mucous membranes moist. Neck: Trachea midline, no thyromegaly or masses palpated, and no cervical lymphadenopathy. Supple, full range of motion without nuchal rigidity, or vertebral point tenderness. Chest/axilla: Normal chest wall appearance and motion. Nontender with no deformity. No lesions are appreciated. Cardiovascular: Regular tachycardia, irregularly irregular rhythm with, no gallops, murmurs, or rubs. Normal PMI, no JVD. No pulse deficits. Respiratory: Lungs have equal breath sounds bilaterally, clear to auscultation and percussion. No rales, rhonchi or wheezes noted. No increased work of breathing, no retractions or nasal flaring. Abdomen/GI: Soft, non-tender, with normal bowel sounds. No distension or tympany. No guarding or rebound. No evidence of tenderness throughout. Back: No spinal tenderness. No costovertebral tenderness. Skin: Warm, dry with normal turgor. Normal color with no rashes, no lesions, and no evidence of cellulitis. MS/ Extremity: Pulses equal, no cyanosis. Neurovascular intact. Full, normal range of motion. Neuro: Awake and alert, GCS 15, oriented to person, place, time, and situation. Cranial nerves II-XII grossly intact. Motor strength 5/5 in all extremities. Sensory grossly intact. Psych: Awake, alert, with orientation to person, place and time. Behavior, mood, and affect are within normal limits 05:22 ECG was reviewed by the Attending Physician. EKG time 0 255, there is atrial sp4 fibrillation with rapid ventricular response at a rate of 105, no ST elevation or depression, there are premature ventricular contractions. Vital Signs: 02:53 BP 156 / 96; Pulse 93; Resp 14 S; Temp 97.8(O); Pulse Ox 97% on R/A; Weight 46.27 kg as6 (R); Height 5 ft. 3 in. (R); Pain 10/10; 03:00 BP 130 / 70; Pulse 120; Resp 20; Pulse Ox 98% ; vc1 04:00 BP 114 / 67; Pulse 116; Resp 26; Pulse Ox 100% ; vc1 05:00 BP 96 / 69; Pulse 119; Resp 17; Pulse Ox 99% ; vc1 02:53 Body Mass Index 18.07 (46.27 kg, 160.02 cm) as6 02:53 Pain Scale: Adult as6 MDM: 03:13 Patient medically screened. sp4 05:22 Differential diagnosis: abnormal EKG, acute pericarditis, anxiety, coronary artery sp4 disease chest wall pain, stable angina, unstable angina. HEART Score: History: Moderately Suspicious (1), ECG: Non specific repolarization disturbance / LBTB / PM (1), Age: > or = 65 years (2), Risk Factors: > or = 3 Risk factors for atherosclerotic disease (2), Troponin: < or = 1 x Normal Limit (0), Total Score = 6. Data reviewed: vital signs, nurses notes, old medical records, lab test result(s), cardiac enzymes, CBC, electrolytes, hepatic panel, EKG, radiologic studies, plain films. Consideration of Admission/Observation Patient was admitted/placed on observation. Escalation of care including admission/observation considered. Management of patient was discussed with the following: Hospitalist: Admission team . ED course: EXAM: XR Chest, 1 View CLINICAL HISTORY: CHEST PAIN TECHNIQUE: Frontal view of the chest. COMPARISON: XR Chest dated 08/24/2022 FINDINGS: Lungs: Hyperinflation and coarsened interstitial markings. No focal consolidation. Pleural space: Unremarkable. No pneumothorax. Heart: Prior CABG. Mediastinum: Unremarkable. Bones/joints: Prior median sternotomy. Vasculature: Thoracic aortic atherosclerosis. IMPRESSION: No acute disease. . ED course: Patient heart rate remains elevated at 120- 130. Even after 2 doses of IV metoprolol, we have requested admitting hospitalist to put patient in the hospital to reinitiate her p.o. metoprolol for better rate control. Patient requested Dilaudid and fentanyl IV, her requests were refused. . ED course: Condition is stable for admission. 05:46 ED course: Patient was offered admission for control of the heart rate and also sp4 evaluation of chest pain, patient has refused admission and decided to leave. Patient at this time will be given in the form discharge. She will be advised to see a motion study engineer on outpatient basis and take her home medications as prescribed.. 10/14 02:50 Order name: Basic Metabolic Panel; Complete Time: 04:24 sp4 10/14 02:50 Order name: CBC with Diff; Complete Time: 04:24 sp4 10/14 02:50 Order name: LFT's; Complete Time: 04:24 sp4 10/14 02:50 Order name: NT PRO-BNP; Complete Time: 04:24 sp4 10/14 02:50 Order name: PT-INR; Complete Time: 04:24 sp4 10/14 02:50 Order name: Troponin HS; Complete Time: 04:24 sp4 10/14 05:35 Order name: Urinalysis w/ reflexes EDMS 10/14 05:35 Order name: CBC with Automated Diff EDMS 10/14 05:35 Order name: CBC with Automated Diff EDMS 10/14 05:35 Order name: CBC with Automated Diff EDMS 10/14 05:35 Order name: Comprehensive Metabolic Panel EDMS 10/14 05:35 Order name: Comprehensive Metabolic Panel EDMS 10/14 05:35 Order name: Comprehensive Metabolic Panel EDMS 10/14 05:35 Order name: Magnesium EDMS 10/14 05:35 Order name: Magnesium EDMS 10/14 05:35 Order name: Magnesium EDMS 10/14 05:35 Order name: Protime (+INR) EDMS 10/14 05:35 Order name: Protime (+INR) EDMS 10/14 05:35 Order name: Protime (+INR) EDMS 10/14 02:50 Order name: XRAY Chest (1 view) [facility] 10/14 02:50 Order name: EKG; Complete Time: 02:51 sp4 10/14 05:35 Order name: CONS Physician Consult [facility] 10/14 05:35 Order name: Heart Healthy [facility] 10/14 02:50 Order name: Cardiac monitoring; Complete Time: 02:53 sp4 10/14 02:50 Order name: EKG - Nurse/Tech; Complete Time: 03:01 sp4 10/14 02:50 Order name: IV Saline Lock; Complete Time: 02:53 sp4 10/14 02:50 Order name: Labs collected and sent; Complete Time: 03:01 sp4 10/14 02:50 Order name: O2 Per Protocol; Complete Time: 02:53 sp4 10/14 02:50 Order name: O2 Sat Monitoring; Complete Time: 02:53 sp4 EC:22 Rate is 105 beats/min. Rhythm is irregularly irregular, A fib with Unifocal PVCs. QRS sp4 Turner is Normal. QRS interval is normal. QT interval is normal. No ST changes noted. Clinical impression: No evidence of ischemia. Interpreted by me. Administered Medications: 03:09 Drug: Metoprolol IVP 5 mg Route: IVP; Site: right antecubital; vc1 06:04 Follow up: Response: No adverse reaction; No change in condition vc1 04:59 Drug: Metoprolol PO 25 mg Route: PO; vc1 06:04 Follow up: Response: No adverse reaction; No change in condition vc1 05:31 Drug: Albumin IVPB 25 grams Volume: 100 ml; Route: IVPB; Site: right antecubital; vc1 06:03 Follow up: IV Status: Pt left before infusion complete; IV Intake: 50ml vc1 05:31 Drug: NS 0.9% IV 500 ml Route: IV; Rate: bolus; Site: right antecubital; vc1 06:04 Follow up: IV Status: Pt left before infusion complete; IV Intake: 125ml vc1 05:31 Drug: Metoprolol IVP 5 mg Route: IVP; Site: right antecubital; vc1 06:04 Follow up: Response: No adverse reaction; No change in condition vc1 05:31 Drug: Enoxaparin Sub-Q 50 mg Route: Sub-Q; Site: right lower abdomen; vc1 06:04 Follow up: Response: No adverse reaction vc1 Disposition Summary: 10/14/22 05:46 Discharge Ordered Location: Home(10/14/22 05:46) sp4 Problem: new(10/14/22 05:46) sp4 Symptoms: have improved(10/14/22 05:46) sp4 Condition: Stable(10/14/22 05:46) sp4 Diagnosis - Chronic atrial fibrillation sp4 - Atrial fibrillation with RVR, palpitations, premature ventricular contractions, sp4 atypical chest pain Followup: sp4 - With: Private Physician - When: 5 - 6 days - Reason: Recheck today's complaints Discharge Instructions: - Discharge Summary Sheet sp4 - Atrial Fibrillation sp4 Forms: - [email or web address] sp4 Signatures: Dispatcher [employer] EDMS Albertina Watkins RN RN mw Lexx Santoro RN RN as6 Alena Camilo RN RN vc1 Juan Yoder MD MD sp4 Corrections: (The following items were deleted from the chart) 05:41 05:22 sp4 mw 05:45 05:22 Inpatient Admission sp4 sp4 05:45 05:22 Cruz Sabillon sp4 sp4 05:45 05:22 Telemetry/MedSurg (Inpatient) sp4 sp4 05:45 05:22 Stable sp4 sp4 05:45 05:22 new sp4 sp4 05:45 05:22 have improved sp4 sp4 05:45 05:22 Standard sp4 sp4 05:45 05:22 Persistent atrial fibrillation sp4 sp4 05:45 05:22 Atrial fibrillation with RVR. sp4 sp4 05:45 05:41 214 mw sp4
[2022-10-14] MEDS ORDERED: ACETAMINOPHEN 500 MG TAB PO PRN (05:26)
[2022-10-14] MEDS ORDERED: ONDANSETRON 4 MG/2 ML VIAL IV PRN (05:26)
[2022-10-14 06:22] VITALS: TEMP 97.8
[2022-10-14 06:30] VITALS: BP 96/69; O2SAT 99
--- NOTE | 2022-10-14 11:16 | EKG ---
Test Date: 2022-10-14 Test Time: 02:55:12 Experimental Electronics Developer: ANGE MEASUREMENT RESULTS: Intervals: Rate: 105 VT: QRSD: 98 QT: 364 QTc: 481 [place]: P: VT: QRS: 63 T: 40 INTERPRETIVE STATEMENTS: Atrial fibrillation with rapid ventricular response with premature ventricular or aberrantly conducted complexes Nonspecific ST and T wave abnormality Abnormal ECG Compared to ECG 09/08/2022 20:24:49 Ventricular premature complex(es) now present Sinus rhythm no longer present Atrial premature complex(es) no longer present First degree AV block no longer present Prolonged QT interval no longer present ST (T wave) deviation still present Electronically Signed On 10-14-22 11:16:10 CDT by Jam Bolanos
--- NOTE | 2022-10-14 21:16 | RAD REPORT ---
EXAM DESCRIPTION: RAD - Chest Single View - 10/14/2022 3:30 am CLINICAL HISTORY: CHEST PAIN TECHNIQUE: Frontal view of the chest. COMPARISON: XR Chest dated 08/24/2022 FINDINGS: Lungs: Hyperinflation and coarsened interstitial markings. No focal consolidation. Pleural space: Unremarkable. No pneumothorax. Heart: Prior CABG. Mediastinum: Unremarkable. Bones/joints: Prior median sternotomy. Vasculature: Thoracic aortic atherosclerosis. IMPRESSION: No acute disease. Electronically signed by: Darnell Villa MD 10/14/2022 3:49 AM CDT Due to temporary technical issues with the PACS/Fluency reporting system, reports are being signed by the in house radiologists without review as a courtesy to insure prompt reporting. The interpreting radiologist is fully responsible for the content of the report.
== END 2022-10-14 05:59 | disposition left against medical advice (07) | DRG 310 ==
LOC: ER 02:30 → 2ND 05:26
PROVIDERS: ADMIT Internal Medicine; ATTEND Internal Medicine
DX: I48.20 Chronic atrial fibrillation, unspecified (principal); R00.2 Palpitations; Z53.21 Procedure and treatment not carried out due to patient leaving prior to being seen by health care provider; I10 Essential (primary) hypertension; E78.00 Pure hypercholesterolemia, unspecified; Z95.2 Presence of prosthetic heart valve; Z79.01 Long term (current) use of anticoagulants; Z79.899 Other long term (current) drug therapy; Z88.5 Allergy status to narcotic agent; Z28.310 Unvaccinated for COVID-19
CPT/HCPCS: 36415; 71045; 80048; 80076; 83880; 84484; 85025; 85610; 93005; J1650; J7040; P9047

== ENCOUNTER 2022-11-01 18:37 | Inpatient (IN) | payer OTHER ==
--- OUTSIDE RECORDS SUMMARY | 2022-11-01 18:56 | XMS REPORT | Continuity of Care Document ---
:1955 Author Organization [facility] t Address [address] [place] [address] Care Team Providers Name Role Phone Daniel Ibrahim Primary Care Physician DANIEL IBRAHIM Attending Clinician Unavailable Saurabh Dobson Attending Clinician Unavailable MARIIA CARDONA Attending Clinician Unavailable MARIIA CARDONA Attending Clinician Unavailable REBECA HOLCOMB Attending Clinician Unavailable REBECA HOLCOMB Attending Clinician Unavailable JAMAICA DAN Attending Clinician Unavailable WAYNE RABAGO Attending Clinician Unavailable Sy LOVELL, [place] Attending Clinician Doctor Unassigned, [place] Attending Clinician Unavailable Pob, [facility] Main Attending Clinician Unavailable Yolande Santacruz MD Attending Clinician JOSEPH CORTES Attending Clinician Unavailable Joseph Cortes MD Attending Clinician Isaak FISHER, Jeremy Ricardo Attending Clinician Unavailable Wayne Rabago MD Attending Clinician MEAGHAN MONTANA Attending Clinician Unavailable Sean Graham MD Attending Clinician [phone] Adhi MD, Vinayak Nathan Attending Clinician Lynnette LOVELL, Shadi Jhaveri Attending Clinician [phone] Latasha LOVELL, Franc Calles Attending Clinician Angela LOVELL, Purnima Attending Clinician Benedicto LOVELL, Benjamin Attending Clinician Rubén LOVELL, Meaghan Reilly Attending Clinician 1, [facility] Attending Clinician Unavailable YOLANDE SANTACRUZ Attending Clinician Unavailable Franco FISHER, Georgie Attending Clinician Unavailable Josemanuel LOVELL, Carmen Attending Clinician Ricky JOSEPH Attending Clinician Unavailable Ricky Ibarra Attending Clinician [...] Unavailable MARIIA CARDONA Admitting Clinician Unavailable VINAYAK COOKREES Admitting Clinician Unavailable REBECA HOLCOMB Admitting Clinician Unavailable CALEB RODRIGUES Admitting Clinician Unavailable Caleb Rodrigues MD Admitting Clinician JENNIFER LO Admitting Clinician Unavailable Jennifer Lo MD Admitting Clinician Payers Payer Name Policy Type Policy Number Effective Date Expiration Date Judi hamilton [facility] DUAL [id number] 2020 COMP HMO D SNP 00:00:00 [facility]MERLY [facility] [id number] 2013 PLUS 00:00:00 [employer]IC[employer] [id number] 2020 00:00:00 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 00:00: [place] with with 00 Medical preserved preserved Bran [...] loss 2-07 Yady kes anemia anemia 00:00: [facility] 00 Center Suprathera Suprathera Disease [...] 8-11 it y of on on 00:00: [place] 00 Medical Branch E44.0 E44.0 Disease Active 2020-04 Univers Moderate Moderate 1-19 ity of protein protein 00:00: [place] calorie calorie 00 Medical malnutriti malnutriti Br anch on on Other Other Disease Active 2020-04 Univers chest pain chest pain 1-19 it y of 00:00: [place] 00 Medical Branch Chest pain Chest pain [...] 8-20 it y of emia emia 00:00: [place] 00 Medical Branch Essential Essential Disease Active Uni vers hypertensi hypertensi 8-20 it y of on on 00:00: [place] Medical Branch Anticoagul Anticoagul Disease Active U sylvesterers ated ated 8-20 ity of 00:00: [place] 00 Medical Branch Coronary Coronary Disease Active Unive rs artery artery 8-20 ity of disease disease 00:00: [place] involving involving 00 Medi tyrone wiyot wiyot Branch coronary coronary artery of artery of wiyot wiyot 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 8-20 ity of disease disease 00:00: [place] involving involving 00 Medi tyrone wiyot wiyot Branch coronary coronary artery of artery of wiyot wiyot 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 2-20 ity of disease disease 00:00: [place] involving involving 00 Medi tyrone wiyot wiyot Branch heart heart without without angina angina [...] Date Stop Date Source Natural mother Diabetes [facility] Natural mother Heart [facility] Other Diabetes [facility] Natural sister Cancer [facility] Natural sister Diabetes [facility] Social History Social Habit Start Date Stop Date Quantity Comments Source History SDOH Social Unive rsity of Connections [facility] Med ical Together Branch History SDOH Social Unive rsity of Connections [facility] Medical Branch History SDOH Social Unive rsity of Connections [place] [facility] Membership Branch History SDOH Social Unive rsity of Connections [place] [facility] Meetings Branch Gender identity Universit y [facility] Sexual orientation Univer [facility] [place] Exposure to 2022-08-18 2022-08-28 Not sure University of SARS-CoV-2 (event) 00:00:00 12:47:00 [place] [facility] History SDOH 2022-06-07 2022-06-07 1 University o f Alcohol Frequency 00:00:00 00:00:00 [place] M edical Branch History SDOH 2022-06-07 2022-06-07 0 University o f Alcohol Std Drinks 00:00:00 00:00:00 [place] [facility] History SDOH 2022-06-07 2022-06-07 1 University o f Alcohol Binge 00:00:00 00:00:00 [place] Medic al Branch History SDOH Social 2022-06-07 2022-06-07 5 Unive rsity of Connections Phone 00:00:00 00:00:00 [place] M edical Branch History SDOH Social 2022-06-07 2022-06-07 4 Unive rsity of Connections Living 00:00:00 00:00:00 [place] [facility] History SDAK 2022-06-07 2022-06-07 0 University o f Physical Activity 00:00:00 00:00:00 [facility] edical DPW Branch History SDAK 2022-06-07 2022-06-07 0 University o f Physical Activity 00:00:00 00:00:00 [facility] edical MPS Branch History SDAK 2022-06-07 2022-06-07 5 University o f Financial 00:00:00 00:00:00 [place] [facility] History SDOH Food 2022-06-07 2022-06-07 1 Univers ity of Worry 00:00:00 00:00:00 [place] [facility] History SDOH Food 2022-06-07 2022-06-07 1 Univers ity of Scarcity 00:00:00 00:00:00 [place] [facility] History SDAK 2022-06-07 2022-06-07 2 University o f Transport Med 00:00:00 00:00:00 [place] Medic al Branch History SDAK 2022-06-07 2022-06-07 2 University o f Transport Non-Med 00:00:00 00:00:00 [facility] edical Branch Education 2022-06-06 2022-06-06 14 University of 00:00:00 00:00:00 [facility] [place] [facility] Branch Tobacco use and 2022-06-06 2022-06-06 Smokeless Universit y of exposure 00:00:00 00:00:00 tobacco non-user [facility] dical Branch Alcohol intake 2022-05-19 2022-05-19 Ex-drinker [facility] 00:[facility]:00:00 (finding[facility] Medical [facility] History [facility] 2022-05-18 2022-05-[address] [facility] Unable to 00:00:00 00:00:00 Medical Center Pay History [facility] 2022-05-18 2022-05-[address] [facility] Places 00:00:00 00:00:00 Medical Ce nter Lived History [facility] 2022-05-18 2022-05-[address] [facility] Homeless 00:00:00 00:00:00 Medical Center Last Year History of Social 2021-02-27 2021-02-27 Univers ity of function 00:00:00 00:00:00 [facility] Sex Ass[birth year] Alfonso Sanches 00:00:00 00:00:00 Medical Center Smoking Status Start Date Stop Date Source Never smoked tobacco [facility] Medications Ordered Filled Start Stop Current Ordering Indication Dosage Frequency Signature Comments Components Source Medication Medication Date Date Medication? Clinician (SIG) Name Name nena Yes 80mg Take 1 Univ ers n 80 mg 7-12 tablet by ity of tablet 00:00: mouth at [place] [address] bedtime. Medical Branch warfarin 1 Yes [id number] 2mg Take 2 Univers mg tablet 7-07 tablets by ity of 00:00: mouth [place] every Medical evening. Branch Take 1mg x3 days, then 2mg x 4 days warfarin 1 Yes [id number] 2mg Take 2 Univers mg tablet 7-07 tablets by ity of 00:00: mouth [place] every Medical evening. Branch Take 1mg x3 days, then 2mg x 4 days ezetimibe Yes [id number] 10mg Take 1 U nivers (ZETIA) 10 4-18 tablet by ity of mg tablet 00:00: [place] the Medical morning. Branch ezetimibe Yes [id number] 10mg Take 1 U nivers (ZETIA) 10 4-18 tablet by ity of mg tablet 00:00: [place] the Medical morning. Branch ezetimibe Yes [id number] 10mg Take 1 U nivers (ZETIA) 10 4-18 tablet by ity of mg tablet 00:00: [place] 00 the Medical morning. Branch ezetimibe 0 Yes [id number] 10mg Take 1 U nivers (ZETIA) 10 4-18 tablet by ity of mg tablet 00:00: [place] 00 the Medical morning. Branch ezetimibe Yes [id number] 10mg Take 1 U nivers (ZETIA) 10 4-18 tablet by ity of mg tablet 00:00: [place] 00 the Medical morning. Branch ezetimibe Yes [id number] 10mg Take 1 U nivers (ZETIA) 10 4-18 tablet by ity of mg tablet 00:00: [place] 00 the Medical morning. Branch ezetimibe 2023-0 Yes [id number] 10mg Take 1 U nivers (ZETIA) 10 4-18 tablet by ity of mg tablet 00:00: [place] 00 the Medical morning. Branch ezetimibe 2023-0 Yes [id number] 10mg Take 1 U nivers (ZETIA) 10 4-18 tablet by ity of mg tablet 00:00: [place] 00 the Medical morning. Branch ezetimibe 2023-0 Yes [id number] 10mg Take 1 U nivers (ZETIA) 10 4-18 tablet by ity of mg tablet 00:00: [place] 00 the Medical morning. Branch ezetimibe 2023-0 Yes [id number] 10mg Take 1 U nivers (ZETIA) 10 4-18 tablet by ity of mg tablet 00:00: [place] 00 the Medical morning. Branch ezetimibe 3-0 Yes [id number] 10mg Take 1 U nivers (ZETIA) 10 4-18 tablet by ity of mg tablet 00:00: [place] 00 the Medical morning. Branch ezetimibe 3-0 Yes [id number] 10mg Take 1 U nivers (ZETIA) 10 4-18 tablet by ity of mg tablet 00:00: [place] 00 the Medical morning. Branch ezetimibe 2023-0 Yes [id number] 10mg Take 1 U nivers (ZETIA) 10 4-18 tablet by ity of mg tablet 00:00: [place] 00 the Medical morning. Branch ezetimibe 2023-0 Yes [id number] 10mg Take 1 U nivers (ZETIA) 10 4-18 tablet by ity of mg tablet 00:00: [place] 00 the Medical morning. Branch ezetimibe 2023-0 Yes [id number] 10mg Take 1 U nivers (ZETIA) 10 4-18 tablet by ity of mg tablet 00:00: [place] 00 the Medical morning. Branch ezetimibe 2023-0 Yes [id number] 10mg Take 1 U nivers (ZETIA) 10 4-18 tablet by ity of mg tablet 00:00: [place] 00 the Medical morning. Branch ezetimibe 2023-0 Yes [id number] 10mg Take 1 U nivers (ZETIA) 10 4-18 tablet by ity of mg tablet 00:00: [place] 00 the Medical morning. Branch ezetimibe 2023-0 Yes [id number] 10mg Take 1 U nivers (ZETIA) 10 4-18 tablet by ity of mg tablet 00:00: [place] 00 the Medical morning. Branch ezetimibe 2023-0 Yes [id number] 10mg Take 1 U nivers (ZETIA) 10 4-18 tablet by ity of mg tablet 00:00: [place] 00 the Medical morning. Branch ezetimibe 2023-0 Yes [id number] 10mg Take 1 U nivers (ZETIA) 10 4-18 tablet by ity of mg tablet 00:00: [place] 00 the Medical morning. Branch ezetimibe 3-0 Yes [id number] 10mg Take 1 U nivers (ZETIA) 10 4-18 tablet by ity of mg tablet 00:00: [place] 00 the Medical morning. Branch ezetimibe 3-0 Yes [id number] 10mg Take 1 U nivers (ZETIA) 10 4-18 tablet by ity of mg tablet 00:00: [place] 00 the Medical morning. Branch ezetimibe 2023-0 Yes [id number] 10mg Take 1 U nivers (ZETIA) 10 4-18 tablet by ity of mg tablet 00:00: [place] 00 the Medical morning. Branch ezetimibe 2023-0 Yes [id number] 10mg Take 1 U nivers (ZETIA) 10 4-18 tablet by ity of mg tablet 00:00: [place] 00 the Medical morning. Branch ezetimibe 2023-0 Yes [id number] 10mg Take 1 U nivers (ZETIA) 10 4-18 tablet by ity of mg tablet 00:00: [place] 00 the Medical morning. Branch ezetimibe 2023-0 Yes [id number] 10mg Take 1 U nivers (ZETIA) 10 4-18 tablet by ity of mg tablet 00:00: [place] 00 the Medical morning. Branch alendronate Yes 70mg 70 mg, Univ ers (FOSAMAX) 06-13 Oral, ity of tablet 70 06:00: QWEEKLY, [place] mg 00 First dose Medical on Sat Branch 06/13/22 at 0000, Until Discontinu ed, Routine magnesium No 400mg 400 mg, Uni vers oxide 06-12 Oral, ity of (MAG-OX 14:45: 14:19 ONCE, 1 [place] 400) tablet 00 :00 dose, On Medi tyrone 400 mg Sat Branch 06/12/22 at 0845, Routine HYDROcodone Yes 1 tablet Un chong -acetaminop [...] No 1 tablet U nivers e (TOVIAZ) 206-11 ity of 4 mg tablet 16:41: 00:00 [...] 35 Medical tablet Branch NaCl 0.9% Yes [id number] 250mL at 20 U nivers (NS) IV 06-11 mL/hr, IV ity of infusion 16:15: Infusion, [place] 250 mL 00 CONTINUOUS Medical , Starting Branch on Sat06/11/22 at 1015, Until Discontinu ed, Routine&lt ;br>KVO
lidocaine 2022- No [id number] 15mL 15 mL, Univers 2% viscous 06-11 9107 Oral, ity of (LIDOCAINE 16:15: 16:15 ONCE, 1 [place] as VISCOUS) 2 00 :00 dose, On Medic al % solution Mon Branch 15 mL 06/11/22 at 1015, Routine FENTanyl PF 2022- No [id number] 50ug 50 mcg, Univers (SUBLIMAZE 06-1107 Slow IV ity o f (PF)) 16:15: 16:15 Push, [place] injection 00 :00 ONCE, 1 Medical 50 mcg dose, On Branch 06/11/22 at 1015, Routine midazolam 2022- No [id number] 1mg 1 mg, IV Univers (VERSED) 06-1107 Push, ity of injection 1 16:15: 16:15 ONCE, 1 [place] mg 00 :00 dose, On Medical Mon [place] 06/11/22 at 1015, Routine warfarin Yes [id number] 2mg Take 2 Univers mg tablet 2-27 tablets by ity of 00:00: mouth [place] 00 every Medical evening. Branch Alternate take 1mg x3 days, then 2mg x 4 days warfarin Yes [id number] 2mg Take 2 Univers mg tablet 2-27 tablets by ity of 00:00: mouth [place] 00 every Medical evening. Branch Alternate take 1mg x3 days, then 2mg x 4 days warfarin Yes [id number] 2mg Take 2 Univers mg tablet 2-27 tablets by ity of 00:00: mouth [place] 00 every Medical evening. Branch Alternate take 1mg x3 days, then 2mg x 4 days warfarin Yes [id number] 2mg Take 2 Univers mg tablet 2-27 tablets by ity of 00:00: mouth [place] 00 every Medical evening. Branch Alternate take 1mg x3 days, then 2mg x 4 days warfarin Yes [id number] 2mg Take 2 Univers mg tablet 2-27 tablets by ity of 00:00: mouth [place] 00 every Medical evening. Branch Alternate take 1mg x3 days, then 2mg x 4 days warfarin Yes [id number] 2mg Take 2 Univers mg tablet 2-27 tablets by ity of 00:00: mouth [place] 00 every Medical evening. Branch Alternate take 1mg x3 days, then 2mg x 4 days warfarin Yes [id number] 2mg Take 2 Univers mg tablet 2-27 tablets by ity of 00:00: mouth [place] 00 every Medical evening. Branch Alternate take 1mg x3 days, then 2mg x 4 days warfarin Yes [id number] 2mg Take 2 Univers mg tablet 2-27 tablets by ity of 00:00: mouth [place] 00 every Medical evening. Branch Alternate take 1mg x3 days, then 2mg x 4 days warfarin Yes [id number] 2mg Take 2 Univers mg tablet 2-27 tablets by ity of 00:00: mouth [place] 00 every Medical evening. Branch Alternate take 1mg x3 days, then 2mg x 4 days warfarin 1 Yes [id number] 2mg Take 2 Univers mg tablet 2-27 tablets by ity of 00:00: mouth [place] 00 every Medical evening. Branch Alternate take 1mg x3 days, then 2mg x 4 days warfarin 1 2022-0 Yes [id number] 2mg Take 2 Univers mg tablet 2-27 tablets by ity of 00:00: mouth [place] 00 every Medical evening. Branch Alternate take 1mg x3 days, then 2mg x 4 days warfarin 1 2022-0 Yes [id number] 2mg Take 2 Univers mg tablet 2-27 tablets by ity of 00:00: mouth [place] 00 every Medical evening. Branch Alternate take 1mg x3 days, then 2mg x 4 days warfarin 1 2022-0 Yes [id number] 2mg Take 2 Univers mg tablet 2-27 tablets by ity of 00:00: mouth [place] 00 every Medical evening. Branch Alternate take 1mg x3 days, then 2mg x 4 days warfarin 1 2022-0 Yes [id number] 2mg Take 2 Univers mg tablet 2-27 tablets by ity of 00:00: mouth [place] 00 every Medical evening. Branch Alternate take 1mg x3 days, then 2mg x 4 days warfarin 1 0 Yes [id number] 2mg Take 2 Univers mg tablet 2-27 tablets by ity of 00:00: mouth [place] 00 every Medical evening. Branch Alternate take 1mg x3 days, then 2mg x 4 days warfarin 1 0 Yes [id number] 2mg Take 2 Univers mg tablet 2-27 tablets by ity of 00:00: mouth [place] 00 every Medical evening. Branch Alternate take 1mg x3 days, then 2mg x 4 days warfarin 1 2022-0 Yes [id number] 2mg Take 2 Univers mg tablet 2-27 tablets by ity of 00:00: mouth [place] 00 every Medical evening. Branch Alternate take 1mg x3 days, then 2mg x 4 days warfarin 1 2022-0 Yes [id number] 2mg Take 2 Univers mg tablet 2-27 tablets by ity of 00:00: mouth [place] 00 every Medical evening. Branch Alternate take 1mg x3 days, then 2mg x 4 days warfarin 1 2022-0 Yes [id number] 2mg Take 2 Univers mg tablet 2-27 tablets by ity of 00:00: mouth [place] 00 every Medical evening. Branch Alternate take 1mg x3 days, then 2mg x 4 days warfarin 1 2022-0 Yes [id number] 2mg Take 2 Univers mg tablet 2-27 tablets by ity of 00:00: mouth [place] 00 every Medical evening. Branch Alternate take 1mg x3 days, then 2mg x 4 days warfarin 1 2022-0 Yes [id number] 2mg Take 2 Univers mg tablet 2-27 tablets by ity of 00:00: mouth [place] 00 every Medical evening. Branch Alternate take 1mg x3 days, then 2mg x 4 days warfarin 1 2022-0 Yes [id number] 2mg Take 2 Univers mg tablet 2-27 tablets by ity of 00:00: mouth [place] 00 every Medical evening. Branch Alternate take 1mg x3 days, then 2mg x 4 days warfarin 1 2022-0 Yes [id number] 2mg Take 2 Univers mg tablet 2-27 tablets by ity of 00:00: mouth [place] 00 every Medical evening. Branch Alternate take 1mg x3 days, then 2mg x 4 days warfarin 2022-0 Yes [id number] 2mg Take 2 Univers mg tablet 2-27 tablets by ity of 00:00: mouth [place] 00 every Medical evening. Branch Alternate take 1mg x3 days, then 2mg x 4 days warfarin 2022-0 Yes [id number] 2mg Take 2 Univers mg tablet 2-27 tablets by ity of 00:00: mouth [place] 00 every Medical evening. Branch Alternate take 1mg x3 days, then 2mg x 4 days warfarin 1 2022-0 Yes [id number] 2mg Take 2 Univers mg tablet 2-27 tablets by ity of 00:00: mouth [place] 00 every Medical evening. Branch Alternate take 1mg x3 days, then 2mg x 4 days warfarin 1 2022-0 Yes [id number] 2mg Take 2 Univers mg tablet 2-27 tablets by ity of 00:00: mouth [place] 00 every Medical evening. Branch Alternate take 1mg x3 days, then 2mg x 4 days warfarin 1 2022-0 Yes [id number] 2mg Take 2 Univers mg tablet 2-27 tablets by ity of 00:00: mouth [place] 00 every Medical evening. Branch Alternate take 1mg x3 days, then 2mg x 4 days warfarin 1 2022-0 Yes [id number] 2mg Take 2 Univers mg tablet 2-27 tablets by ity of 00:00: mouth [place] 00 every Medical evening. Branch Alternate take 1mg x3 days, then 2mg x 4 days warfarin 1 2022-0 Yes [id number] 2mg Take 2 Univers mg tablet 2-27 tablets by ity of 00:00: mouth [place] 00 every Medical evening. Branch Alternate take 1mg x3 days, then 2mg x 4 days warfarin 1 2022-0 Yes [id number] 2mg Take 2 Univers mg tablet 2-27 tablets by ity of 00:00: mouth [place] 00 every Medical evening. Branch Alternate take 1mg x3 days, then 2mg x 4 days warfarin 1 2022-0 Yes [id number] 2mg Take 2 Univers mg tablet 2-27 tablets by ity of 00:00: mouth [place] 00 every Medical evening. Branch Alternate take 1mg x3 days, then 2mg x 4 days warfarin 1 2022-0 Yes [id number] 2mg Take 2 Univers mg tablet 2-27 tablets by ity of 00:00: mouth [place] 00 every Medical evening. Branch Alternate take 1mg x3 days, then 2mg x 4 days warfarin 1 2022-0 Yes [id number] 2mg Take 2 Univers mg tablet 2-27 tablets by ity of 00:00: mouth [place] 00 every Medical evening. Branch Alternate take 1mg x3 days, then 2mg x 4 days warfarin 1 2022-0 Yes [id number] 2mg Take 2 Univers mg tablet 2-27 tablets by ity of 00:00: mouth [place] 00 every Medical evening. Branch Alternate take 1mg x3 days, then 2mg x 4 days warfarin 2022-0 Yes [id number] 2mg Take 2 Univers mg tablet 2-27 tablets by ity of 00:00: mouth [place] 00 every Medical evening. Branch Alternate take 1mg x3 days, then 2mg x 4 days warfarin 1 2022-0 Yes [id number] 2mg Take 2 Univers mg tablet 2-27 tablets by ity of 00:00: mouth [place] 00 every Medical evening. Branch Alternate take 1mg x3 days, then 2mg x 4 days warfarin 1 2022-0 Yes [id number] 2mg Take 2 Univers mg tablet 2-27 tablets by ity of 00:00: mouth [place] 00 every Medical evening. Branch Alternate take 1mg x3 days, then 2mg x 4 days warfarin 1 2023-0 Yes [id number] 2mg Take 2 Univers mg tablet 2-27 tablets by ity of 00:00: mouth [place] 00 every Medical evening. Branch Alternate take 1mg x3 days, then 2mg x 4 days warfarin 1 Yes [id number] 2mg Take 2 Univers mg tablet 2-27 tablets by ity of 00:00: mouth [place] 00 every Medical evening. Branch Alternate take 1mg x3 days, then 2mg x 4 days warfarin 1 Yes [id number] 2mg Take 2 Univers mg tablet 2-27 tablets by ity of 00:00: mouth [place] 00 every Medical evening. Branch Alternate take 1mg x3 days, then 2mg x 4 days warfarin 1 2022- No [id number] 2mg Take 2 Univers mg tablet 2-27 07-07 tablets by ity of 00:00: 00:00 mouth [place] 00 :00 every Medical evening. Branch Alternate take 1mg x3 days, then 2mg x 4 days dofetilide 2022- No [id number] 250ug Take 1 Univers 250 mcg 2-27 05-29 capsule by ity o f capsule 00:00: 04:59 mouth [place] 00 :00 every 12 Medical (twelve) Branch hours for 90 days. dofetilide 2022- No [id number] 250ug Take 1 Univers 250 mcg 2-27 05-29 capsule by ity o f capsule 00:00: 04:59 mouth [place] 00 :00 every 12 Medical (twelve) Branch hours for 90 days. dofetilide 2022- No [id number] 250ug Take 1 Univers 250 mcg 2-27 05-29 capsule by ity o f capsule 00:00: 04:59 mouth [place] 00 :00 every 12 Medical (twelve) Branch hours for 90 days. dofetilide 2022- No [id number] 250ug Take 1 Univers 250 mcg 2-27 05-29 capsule by ity o f capsule 00:00: 04:59 mouth [place] 00 :00 every 12 Medical (twelve) Branch hours for 90 days. dofetilide 2022- No [id number] 250ug Take 1 Univers 250 mcg 2-27 05-29 capsule by ity o f capsule 00:00: 04:59 mouth [place] 00 :00 every 12 Medical (twelve) Branch hours for 90 days. dofetilide 2022- No [id number] 250ug Take 1 Univers 250 mcg 2-27 05-29 capsule by ity o f capsule 00:00: 04:59 mouth [place] 00 :00 every 12 Medical (twelve) Branch hours for 90 days. dofetilide 2022- No [id number] 250ug Take 1 Univers 250 mcg 2-27 05-29 capsule by ity o f capsule 00:00: 04:59 mouth [place] 00 :00 every 12 Medical (twelve) Branch hours for 90 days. dofetilide 2022- No [id number] 250ug Take 1 Univers 250 mcg 2-27 05-29 capsule by ity o f capsule 00:00: 04:59 mouth [place] 00 :00 every 12 Medical (twelve) Branch hours for 90 days. dofetilide 2022- No [id number] 250ug Take 1 Univers 250 mcg 2-27 05-29 capsule by ity o f capsule 00:00: 04:59 mouth [place] 00 :00 every 12 Medical (twelve) Branch hours for 90 days. dofetilide 2022- No [id number] 250ug Take 1 Univers 250 mcg 2-27 05-29 capsule by ity o f capsule 00:00: 04:59 mouth [place] 00 :00 every 12 Medical (twelve) Branch hours for 90 days. dofetilide 2022- No [id number] 250ug Take 1 Univers 250 mcg 2-27 05-29 capsule by ity o f capsule 00:00: 04:59 mouth [place] 00 :00 every 12 Medical (twelve) Branch hours for 90 days. dofetilide 2022- No [id number] 250ug Take 1 Univers 250 mcg 2-27 05-29 capsule by ity o f capsule 00:00: 04:59 mouth [place] 00 :00 every 12 Medical (twelve) Branch hours for 90 days. dofetilide 2022- No [id number] 250ug Take 1 Univers 250 mcg 2-27 05-29 capsule by ity o f capsule 00:00: 04:59 mouth [place] 00 :00 every 12 Medical (twelve) Branch hours for 90 days. dofetilide 2022- No [id number] 250ug Take 1 Univers 250 mcg 2-27 05-29 capsule by ity o f capsule 00:00: 04:59 mouth [place] 00 :00 every 12 Medical (twelve) Branch hours for 90 days. dofetilide 2022- No [id number] 250ug Take 1 Univers 250 mcg 2-27 05-29 capsule by ity o f capsule 00:00: 04:59 mouth [place] 00 :00 every 12 Medical (twelve) Branch hours for 90 days. dofetilide 2022- No [id number] 250ug Take 1 [facility] 250 mcg 2-27 05-29 capsule by ity o f capsule 00:00: 04:59 mouth [place] 00 :00 every 12 Medical (twelve) Branch hours for 90 days. dofetilide 2022- No [id number] 250ug Take 1 [facility] 250 mcg 2-27 05-29 capsule by ity o f capsule 00:00: 04:59 mouth [place] 00 :00 every 12 Medical (twelve) Branch hours for 90 days. dofetilide 2022- No [id number] 250ug Take 1 [facility] 250 mcg 2-27 05-29 capsule by ity o f capsule 00:00: 04:59 mouth [place] 00 :00 every 12 Medical (twelve) Branch hours for 90 days. dofetilide 2022- No [id number] 250ug Take 1 [facility] 250 mcg 2-27 05-29 capsule by ity o f capsule 00:00: 04:59 mouth [place] 00 :00 every 12 Medical (twelve) Branch hours for 90 days. dofetilide 2022- No [id number] 250ug Take 1 [facility] 250 mcg 2-27 05-29 capsule by ity o f capsule 00:00: 04:59 mouth [place] 00 :00 every 12 Medical (twelve) Branch hours for 90 days. dofetilide 2022- No [id number] 250ug Take 1 [facility] 250 mcg 2-27 05-29 capsule by ity o f capsule 00:00: 04:59 mouth [place] 00 :00 every 12 Medical (twelve) Branch hours for 90 days. dofetilide 2022- No [id number] 250ug Take 1 [facility] 250 mcg 2-27 05-29 capsule by ity o f capsule 00:00: 04:59 mouth [place] 00 :00 every 12 Medical (twelve) Branch hours for 90 days. dofetilide 2022- No [id number] 250ug Take 1 [facility] 250 mcg 2-27 05-29 capsule by ity o f capsule 00:00: 04:59 mouth [place] 00 :00 every 12 Medical (twelve) Branch hours for 90 days. dofetilide 2022- No [id number] 250ug Take 1 [facility] 250 mcg 2-27 05-29 capsule by ity o f capsule 00:00: 04:59 mouth [place] 00 :00 every 12 Medical (twelve) Branch hours for 90 days. dofetilide 2022- No [id number] 250ug Take 1 [facility] 250 mcg 2-27 05-29 capsule by ity o f capsule 00:00: 04:59 mouth [place] 00 :00 every 12 Medical (twelve) Branch hours for 90 days. dofetilide 2022- No [id number] 250ug Take 1 [facility] 250 mcg 2-27 05-29 capsule by ity o f capsule 00:00: 04:59 mouth [place] 00 :00 every 12 Medical (twelve) Branch hours for 90 days. dofetilide 2022- No [id number] 250ug Take 1 [facility] 250 mcg 2-27 05-29 capsule by ity o f capsule 00:00: 04:59 mouth [place] 00 :00 every 12 Medical (twelve) Branch hours for 90 days. dofetilide 2022- No [id number] 250ug Take 1 [facility] 250 mcg 2-27 05-29 capsule by ity o f capsule 00:00: 04:59 mouth [place] 00 :00 every 12 Medical (twelve) Branch hours for 90 days. dofetilide 2022- No [id number] 250ug Take 1 [facility] 250 mcg 2-27 05-29 capsule by ity o f capsule 00:00: 04:59 mouth [place] 00 :00 every 12 Medical (twelve) Branch hours for 90 days. dofetilide 2022- No [id number] 250ug Take 1 [facility] 250 mcg 2-27 05-29 capsule by ity o f capsule 00:00: 04:59 mouth [place] 00 :00 every 12 Medical (twelve) Branch hours for 90 days. dofetilide 3-0 2022- No [id number] 250ug Take 1 [facility] 250 mcg 2-27 05-29 capsule by ity o f capsule 00:00: 04:59 mouth [place] 00 :00 every 12 Medical (twelve) Branch hours for 90 days. dofetilide 3-0 2022- No [id number] 250ug Take 1 [facility] 250 mcg 2-27 05-29 capsule by ity o f capsule 00:00: 04:59 mouth [place] 00 :00 every 12 Medical (twelve) Branch hours for 90 days. dofetilide 3-0 2022- No [id number] 250ug Take 1 [facility] 250 mcg 2-27 05-29 capsule by ity o f capsule 00:00: 04:59 mouth [place] 00 :00 every 12 Medical (twelve) Branch hours for 90 days. dofetilide 2022-0 2022- No [id number] 250ug Take 1 [facility] 250 mcg 2-27 -29 capsule by ity o f capsule 00:00: 04:59 mouth [place] 00 :00 every 12 Medical (twelve) Branch hours for 90 days. enoxaparin 2022-0 2022- No [id number] 40mg inject 0.4 [facility] 40 mg/0.4 2-27 03-05 mL under ity o f mL 00:00: 05:59 the skin [place] injection 00 :00 in the [facility] Branch for 5 days. enoxaparin 2022-0 2022- No [id number] 40mg inject 0.4 [facility] 40 mg/0.4 2-27 03-05 mL under ity o f mL 00:00: 05:59 the skin [place] injection 00 :00 in the [facility] Branch for 5 days. enoxaparin 3-0 2022- No [id number] 40mg inject 0.4 [facility] 40 mg/0.4 2-27 03-05 mL under ity o f mL 00:00: 05:59 the skin [place] injection 00 :00 in the [facility] Branch for 5 days. enoxaparin 3-0 2022- No [id number] 40mg inject 0.4 [facility] 40 mg/0.4 2-27 03-05 mL under ity o f mL 00:00: 05:59 the skin [place] injection 00 :00 in the Medical morning Branch for 5 days. enoxaparin 2022- No [id number] 40mg inject 0.4 [facility] 40 mg/0.4 2-27 03-05 mL under ity o f mL 00:00: 05:59 the skin [place] injection 00 :00 in the Medical morning Branch for 5 days. enoxaparin 2022- No [id number] 40mg inject 0.4 [facility] 40 mg/0.4 2- 03-05 mL under ity o f mL 00:00: 05:59 the skin [place] injection 00 :00 in the Medical morning Branch for 5 days. enoxaparin 2022- No [id number] 40mg inject 0.4 [facility] 40 mg/0.4 2 03-05 mL under ity o f mL 00:00: 05:59 the skin [place] injection 00 :00 in the [facility] morning Branch for 5 days. dofetilide 2022- No [id number] 250ug Take 1 [facility] 250 mcg 06-11 capsule by ity o f capsule 00:00: 05:59 mouth [place] 00 :00 every 12 [facility] ([facility]) Branch hours for 2 days. warfarin 2 2022- No [id number] 2mg Take 1 [facility] mg tablet 06-11 tablet by ity of 00:00: 05:59 mouth [place] 00 :00 every Medical evening Branch for 2 days. dofetilide 2022- No [id number] 250ug Take 1 [facility] 250 mcg 06-11- capsule by ity o f capsule 00:00: 05:59 mouth [place] 00 :00 every 12 [facility] ([facility]) Branch hours for 2 days. warfarin 2 2022-2022- No [id number] 2mg Take 1 [facility] mg tablet 06-11- tablet by ity of 00:00: 05:59 mouth [place] 00 :00 every Medical evening Branch for 2 days. warfarin 2 2022- No [id number] 2mg Take 1 [facility] mg tablet 06-11- tablet by ity of 00:00: 05:59 mouth [place] 00 :00 every Medical evening Branch for 2 days. warfarin 2 2022- No [id number] 2mg Take 1 [facility] mg tablet 06-11 tablet by ity of 00:00: 05:59 mouth [place] 00 :00 every Medical evening Branch for 2 days. warfarin 2 2022- No [id number] 2mg Take 1 [facility] mg tablet 06-11 tablet by ity of 00:00: 05:59 mouth [place] 00 :00 every Medical evening Branch for 2 days. warfarin 2 2022- No [id number] 2mg Take 1 [facility] mg tablet 06-11 tablet by ity of 00:00: 05:59 mouth [place] 00 :00 every Medical evening Branch for 2 days. warfarin 2 2022- No [id number] 2mg Take 1 [facility] mg tablet 06-11 tablet by ity of 00:00: 05:59 mouth [place] 00 :00 every Medical evening Branch for 2 days. enoxaparin 2022- No [id number] 40mg inject 0.4 [facility] 40 mg/0.4 06-11- mL under ity o f mL 00:00: 05:59 the skin [place] injection 00 :00 in the Medical morning Branch for 2 days. enoxaparin 2022- No [id number] 40mg inject 0.4 [facility] 40 mg/0.4 06-11- mL under ity o f mL 00:00: 05:59 the skin [place] injection 00 :00 in the Medical morning Branch for 2 days. dofetilide 2022- No [id number] 250ug Take 1 [facility] 250 mcg 06-11 capsule by ity o f capsule 00:00: 05:59 mouth [place] 00 :00 every 12 Medical ([facility]) Branch hours for 2 days. enoxaparin 2022- No [id number] 40mg inject 0.4 [facility] 40 mg/0.4 06-11- mL under ity o f mL 00:00: 05:59 the skin [place] injection 00 :00 in the Medical morning Branch for 2 days. dofetilide 2022- No [id number] 250ug Take 1 [facility] 250 mcg 06-11 capsule by ity o f capsule 00:00: 05:59 mouth [place] 00 :00 every 12 Medical ([facility]) Branch hours for 2 days. enoxaparin 2022-2022- No [id number] 40mg inject 0.4 [facility] 40 mg/0.4 06-11- mL under ity o f mL 00:00: 05:59 the skin [place] injection 00 :00 in the [facility] morning Branch for 2 days. dofetilide 2022-0 2022- No [id number] 250ug Take 1 [facility] 250 mcg 06-11 capsule by ity o f capsule 00:00: 05:59 mouth [place] 00 :00 every 12 [facility] ([facility]) Branch hours for 2 days. enoxaparin 2022-2022- No [id number] 40mg inject 0.4 [facility] 40 mg/0.4 06-11- mL under ity o f mL 00:00: 05:59 the skin [place] injection 00 :00 in the [facility] morning Branch for 2 days. dofetilide 2022-2022- No [id number] 250ug Take 1 [facility] 250 mcg 06-11 capsule by ity o f capsule 00:00: 05:59 mouth [place] 00 :00 every 12 [facility] ([facility]) Branch hours for 2 days. enoxaparin 2022-2022- No [id number] 40mg inject 0.4 [facility] 40 mg/0.4 06-11- mL under ity o f mL 00:00: 05:59 the skin [place] injection 00 :00 in the [facility] Branch for 2 days. dofetilide 2022-2022- No [id number] 250ug Take 1 [facility] 250 mcg 06-11 capsule by ity o f capsule 00:00: 05:59 mouth [place] 00 :00 every 12 [facility] ([facility]) Branch hours for 2 days. enoxaparin 2022-2022- No [id number] 40mg inject 0.4 [facility] 40 mg/0.4 06-11- mL under ity o f mL 00:00: 05:59 the skin [place] injection 00 :00 in the [facility] morning Branch for 2 days. warfarin 2022-0 Yes 2mg 2 mg, Univers (COUMADIN) 2-26 Oral, ity of tablet 2 mg 23:00: DAILY AT [place] 00 1700, Medical First dose Branch (after last modificati on) on 06/10/22 at 1700, Until Discontinu ed, Routine
INR Goal Range: 2-3
IND ICATION (More than one indication for warfarin can be selected): Atrial fibrillati on/flutter magnesium 2022-0 2022- No 800mg 800 mg, Uni vers oxide 06-10 Oral, ity of (MAG-OX 14:15: 14:30 ONCE, 1 [place] 400) tablet 00 :00 dose, On Medi tyrone 800 mg [facility] 06/10/22 at 0815, Routine magnesium 2022- No 2g 2 g, IV Univ ers sulfate in 06-10 Piggyback, it y of water 2 09:45: 10:41 Administer Baabk as gram/50 mL 00 :00 over 60 Medica l (4 %) Minutes, Branch infusion 2 ONCE, 1 g dose, On [place] 06/10/22 at 0345, Routine methocarbam 0 Yes 500mg 500 mg, [place] oL 06-10 Oral, BID, ity of (ROBAXIN) 02:00: First dose [place] tablet 500 00 on [facility] Medical mg 06/09/22 at Branch 2000, Until Discontinu ed, Routine gabapentin 0 Yes 200mg 200 mg, Uni vers (NEURONTIN) 2-25 Oral, TID, it y of capsule 200 20:00: First dose [place] mg 00 on [facility] Medical 06/09/22 at Branch 1400, Until Discontinu ed, Routine acetaminoph 2022-0 Yes 500mg 500 mg, [facility] [place] en 2-25 Oral, TID, ity of (TYLENOL) 20:00: First dose [place] tablet 500 00 (after Medical mg last Branch modificati on) on [facility] 06/09/22 at 1400, Until Discontinu ed, Routine heparin 2022-0 2022- No 80U/kg 3,560 Univer s 1000 2-25 02-25 Units (80 ity of unit/mL 16:30: 17:49 Units/kg [place] injection 00 :00 ?44.5 kg), Medi tyrone Soln 3,560 IV Push, Branc h Units ONCE, 1 dose, On [facility] 06/09/22 at 1030, Routine heparin 2022-0 [...] INITIAL INFUSION RATE.&nbsp ; _ &nb sp;FOR [facility], [facility], AND [facility] ONLY &nbs p; - aPTT [...] , Starting [place] mL vial) 12 on Sat Medical 06/09/22 at Branch 1027, Until Discontinu [...] Discontinu ed, Routine, Pain (scale 7-10) magnesium 2022-2022- No 2g 2 g, IV Univ ers [...] First dose Medi tyrone 40 mg on [facility] Branch 06/07/22 at 0900, Until Discontinu ed, Routine ezetimibe Yes 10mg 10 mg, Univer s (ZETIA) 06-07 Oral, ity of tablet 10 15:00: DAILY, [place] mg 00 First dose Medical on [facility] Branch 06/07/22 at 0900, Until Discontinu ed, Routine furosemide 2022- No 40mg 40 mg, Univ ers (LASIX) 06-07 Oral, ity of tablet 40 15:00: 20:50 DAILY, [place] mg 00 :38 First dose Medical on [facility] Branch 06/07/22 at 0900, Until Discontinu ed, Routine aspirin 2022- No 81mg 81 mg, Univers chewable 06-07 Oral, ity of tablet 81 15:00: 15:25 DAILY, [place] mg 00 :24 First dose Medical on [facility] Branch 06/07/22 at 0900, Until Discontinu ed, Routine HYDROcodone Yes 1{tbl} 1 tablet, Univers -acetaminop 06-07 Oral, ity of hen (NORCO) 14:58: Q6HPRN, [place] as 10-325 mg 30 Starting Medica l tablet 1 on [facility] Branch tablet 06/07/22 at 0858, Until Discontinu ed, Routine, Pain (scale 7-10), Pain (scale 4-6) gabapentin 2022- No 300mg 300 mg, Un [facility]ong (NEURONTIN) 06-07 Oral, ity of capsule 300 07:45: 07:14 ONCE, 1 [place] mg 00 :00 dose, On Medical [facility] Branch 06/07/22 at 0145, Routine KCL 2022- No 20meq 20 mEq, Univers (KLOR-CON 06-07 Oral, ity of M20) tablet 05:00: 06:48 ONCE, 1 [place] 20 mEq 00 :00 dose, On Medical [facility] Branch 06/06/22 at 2315, Routine magnesium 2022- [...] First dose [place] mg 00 on [facility] Medical 06/06/22 at Branch 2100, Until Discontinu ed, Routine dofetilide 2022- No 125ug 125 mcg, U nivers (TIKOSYN) 06-07 Oral, ity of capsule 125 02:00: 16:35 Q12H, [place] mcg 00 :11 First dose Medical on [facility] 06/06/22 at 2000, Until Discontinu ed, Routine
[...] at 1900, Until Discontinu ed, Routine warfarin No 1mg 1 mg, Univers (COUMADIN) 06-07 [...] 1 Medical 12.5 mcg dose, On Branch [facility] 06/06/22 at 1830, Routine zolpidem 2023-0 Yes 5mg 5 mg, Univers (AMBIEN) 06-07 [...] Take [address] [facility] (LASIX) 20 2-13 -13 tablet (20 Yady kes MG tablet 00:00: [...] Medi tyrone MG tablet 11 Center warfarin 2023-0 Yes 1mg QD Take [...] 12.5mg Q.5D Take 0.[address] [facility] tartrate -03 16- tablets [facility] (LOPRESSOR) 00:00: 23:59 (12.5 mg [...] 13:52: daily. Medi tyrone MG tablet 50 [place] warfarin 0 Yes 1mg QD Take [address] [facility] (COUMADIN, 2-04 by mouth [facility]) 1 13:52: daily. Medi tyrone MG tablet 50 [place] warfarin 2022-0 Yes 1mg QD Take [address] [facility] (COUMADIN, 2-04 by mouth [facility]) 1 13:52: daily. Medi tyrone MG tablet 50 [place] warfarin 2022-0 Yes 1mg QD Take [address] [facility] (COUMADIN, 2-04 by mouth [facility]) 1 13:52: daily. Medi tyrone MG tablet 50 [place] alendronate 0 Yes Univer s 70 mg 1-26 ity of tablet 00:00: [place] [address] Medical Branch zolpidem 10 0 Yes 1 tablet [place] mg tablet 1-26 at bedtime ity of 00:00: as needed [address] alendronate 0 Yes Univer s 70 mg 1-26 ity of tablet 00:00: [place] [address] Medical Branch zolpidem 10 0 Yes 1 tablet [place] mg tablet 1-26 at bedtime ity of 00:00: as needed [address] alendronate 2022-0 Yes Univer s 70 mg 1-26 ity of tablet 00:00: [place] [address] Medical Branch zolpidem 10 0 Yes 1 tablet [place] mg tablet 1-26 at bedtime ity of 00:00: as needed [place] [facility] Branch alendronate 0 Yes Univer s 70 mg 1-26 ity of tablet 00:00: [place] [address] Medical Branch zolpidem 10 2022-0 Yes 1 tablet [place] mg tablet 1-26 at bedtime ity of 00:00: as needed [place] [facility] Branch alendronate 2022-0 Yes Univer s 70 mg 1-26 ity of tablet 00:00: [place] [address] Medical [place] zolpidem 10 2022-0 Yes 1 tablet [place] mg tablet 1-26 at bedtime ity of 00:00: as needed [address] alendronate 2022-0 Yes Univer s 70 mg 1-26 ity of tablet 00:00: [place] [address] Medical Branch zolpidem 10 2022-0 Yes 1 tablet [place] mg tablet 1-26 at bedtime ity of 00:00: as needed Medical Branch alendronate 2022-0 Yes Univer s 70 mg 1-26 ity of tablet 00:00: [place] [facility] Branch zolpidem 10 2022-0 Yes 1 tablet [place] mg tablet 1-26 at bedtime ity of 00:00: as needed Medical Branch alendronate 2022-0 Yes Univer s 70 mg 1-26 ity of tablet 00:00: [place] [facility] Branch zolpidem 10 2022-0 Yes 1 tablet [place] mg tablet 1-26 at bedtime ity of 00:00: as needed [place] [facility] Branch alendronate 2022-0 Yes Univer s 70 mg 1-26 ity of tablet 00:00: [place] [address] Medical Branch zolpidem 10 2022-0 Yes 1 tablet [place] mg tablet 1-26 at bedtime ity of 00:00: as needed [place] [facility] Branch alendronate 2022-0 Yes Univer s 70 mg 1-26 ity of tablet 00:00: [place] [address] Medical Branch zolpidem 10 2022-0 Yes 1 tablet [place] mg tablet 1-26 at bedtime ity of 00:00: as needed [place] [facility] Branch alendronate 2022-0 Yes Univer s 70 mg 1-26 ity of tablet 00:00: [place] [address] Medical Branch zolpidem 10 2022-0 Yes 1 tablet [place] mg tablet 1-26 at bedtime ity of 00:00: as needed Medical Branch alendronate 2022-0 Yes Univer s 70 mg 1-26 ity of tablet 00:00: [place] [address] Medical Branch zolpidem 10 2022-0 Yes 1 tablet [place] mg tablet 1-26 at bedtime ity of 00:00: as needed [place] [facility] Branch alendronate 2022-0 Yes Univer s 70 mg 1-26 ity of tablet 00:00: [place] [address] Medical Branch zolpidem 10 2022-0 Yes 1 tablet [place] mg tablet 1-26 at bedtime ity of 00:00: as needed [place] [facility] Branch alendronate 2022-0 Yes Univer s 70 mg 1-26 ity of tablet 00:00: [place] [facility] Branch zolpidem 10 2022-0 Yes 1 tablet [place] mg tablet 1-26 at bedtime ity of 00:00: as needed Medical Branch alendronate 2022-0 Yes Univer s 70 mg 1-26 ity of tablet 00:00: [place] [facility] Branch zolpidem 10 2022-0 Yes 1 tablet [place] mg tablet 1-26 at bedtime ity of 00:00: as needed Medical Branch alendronate 2022-0 Yes Univer s 70 mg 1-26 ity of tablet 00:00: [place] [facility] Branch zolpidem 10 2022-0 Yes 1 tablet [place] mg tablet 1-26 at bedtime ity of 00:00: as needed [place] [facility] Branch alendronate 2022-0 Yes Univer s 70 mg 1-26 ity of tablet 00:00: [place] [facility] Branch zolpidem 10 2022-0 Yes 1 tablet [place] mg tablet 1-26 at bedtime ity of 00:00: as needed [place] [facility] Branch alendronate 2022-0 Yes Univer s 70 mg 1-26 ity of tablet 00:00: [place] [facility] zolpidem 10 2022-0 Yes 1 tablet [place] mg tablet 1-26 at bedtime ity of 00:00: as needed Medical Branch alendronate 2022-0 Yes Univer s 70 mg 1-26 ity of tablet 00:00: [place] [facility] Branch zolpidem 10 2022-0 Yes 1 tablet [place] mg tablet 1-26 at bedtime ity of 00:00: as needed Medical Branch alendronate 2022-0 Yes Univer s 70 mg 1-26 ity of tablet 00:00: [place] [facility] Branch zolpidem 10 2022-0 Yes 1 tablet [place] mg tablet 1-26 at bedtime ity of 00:00: as needed Medical Branch alendronate 2022-0 Yes Univer s 70 mg 1-26 ity of tablet 00:00: [place] [facility] zolpidem 10 2022-0 Yes 1 tablet [place] mg tablet 1-26 at bedtime ity of 00:00: as needed [place] [facility] Branch alendronate 0 Yes Univer s 70 mg 1-26 ity of tablet 00:00: [place] [facility] zolpidem 10 2022-0 Yes 1 tablet [place] mg tablet 1-26 at bedtime ity of 00:00: as needed Medical Branch alendronate 2022-0 Yes Univer s 70 mg 1-26 ity of tablet 00:00: [place] [facility] zolpidem 10 2022-0 Yes 1 tablet [place] mg tablet 1-26 at bedtime ity of 00:00: as needed [place] [facility] alendronate 2022-0 Yes Univer s 70 mg 1-26 ity of tablet 00:00: [place] [facility] zolpidem 10 2022-0 Yes 1 tablet [place] mg tablet 1-26 at bedtime ity of 00:00: as needed [place] [facility] Branch alendronate 2022-0 Yes Univer s 70 mg 1-26 ity of tablet 00:00: [place] [address] Medical Branch zolpidem 10 2022-0 Yes 1 tablet [place] mg tablet 1-26 at bedtime ity of 00:00: as needed [place] [address] Medical Branch alendronate 2022-0 Yes Univer s 70 mg 1-26 ity of tablet 00:00: [place] [address] Medical Branch zolpidem 10 2022-0 Yes 1 tablet [place] mg tablet 1-26 at bedtime ity of 00:00: as needed Medical Branch alendronate 2022-0 Yes Univer s 70 mg 1-26 ity of tablet 00:00: [place] [facility] zolpidem 10 2022-0 Yes 1 tablet [place] mg tablet 1-26 at bedtime ity of 00:00: as needed [place] [address] Medical Branch alendronate 2022-0 Yes Univer s 70 mg 1-26 ity of tablet 00:00: [place] [address] Medical Branch zolpidem 10 2022-0 Yes 1 tablet [place] mg tablet 1-26 at bedtime ity of 00:00: as needed [place] [address] Medical Branch alendronate 2022-0 Yes Univer s 70 mg 1-26 ity of tablet 00:00: [place] [address] Medical Branch zolpidem 10 2022-0 Yes 1 tablet [place] mg tablet 1-26 at bedtime ity of 00:00: as needed [place] [facility] alendronate 2022-0 Yes Univer s 70 mg 1-26 ity of tablet 00:00: [place] [facility] zolpidem 10 2022-0 Yes 1 tablet [place] mg tablet 1-26 at bedtime ity of 00:00: as needed [place] [facility] Branch alendronate 2022-0 Yes Univer s 70 mg 1-26 ity of tablet 00:00: [place] [facility] zolpidem 10 2022-0 Yes 1 tablet [place] mg tablet 1-26 at bedtime ity of 00:00: as needed [place] [facility] alendronate 2022-0 Yes Univer s 70 mg 1-26 ity of tablet 00:00: [place] [facility] zolpidem 10 2022-0 Yes 1 tablet [place] mg tablet 1-26 at bedtime ity of 00:00: as needed [place] [facility] alendronate 2022-0 Yes Univer s 70 mg 1-26 ity of tablet 00:00: [place] [facility] zolpidem 10 2022-0 Yes 1 tablet [place] mg tablet 1-26 at bedtime ity of 00:00: as needed [place] [facility] alendronate 2022-0 Yes Univer s 70 mg 1-26 ity of tablet 00:00: [place] [address] Medical Branch zolpidem 10 2022-0 Yes 1 tablet [place] mg tablet 1-26 at bedtime ity of 00:00: as needed [place] [facility] alendronate 2022-0 Yes Univer s 70 mg 1-26 ity of tablet 00:00: [place] [facility] zolpidem 10 2022-0 Yes 1 tablet [place] mg tablet 1-26 at bedtime ity of 00:00: as needed [place] [facility] alendronate 2022-0 Yes Univer s 70 mg 1-26 ity of tablet 00:00: [place] [address] Medical Branch zolpidem 10 2022-0 Yes 1 tablet [place] mg tablet 1-26 at bedtime ity of 00:00: as needed [place] [facility] alendronate 2022-0 Yes Univer s 70 mg 1-26 ity of tablet 00:00: [place] [facility] zolpidem 10 2022-0 Yes 1 [...] 70 mg 1-26 ity of tablet 00:00: [place] [facility] zolpidem 10 2022-0 Yes 1 tablet [place] mg tablet 1-26 at bedtime ity of 00:00: as needed Medical Branch alendronate 2022-0 Yes Univer s 70 mg 1-26 ity of tablet 00:00: [place] [facility] zolpidem 10 2022-0 Yes 1 tablet [place] mg tablet 1-26 at bedtime ity of 00:00: as needed Medical Branch alendronate 2022-0 Yes Univer s 70 mg 1-26 ity of tablet 00:00: [place] [facility] zolpidem 10 2022-0 Yes 1 tablet [place] mg tablet 1-26 at bedtime ity of 00:00: as needed [place] [facility] alendronate 2022-0 Yes Univer s 70 mg 1-26 ity of tablet 00:00: [place] [facility] zolpidem 10 2022-0 Yes 1 tablet [place] mg tablet 1-26 at bedtime ity of 00:00: as needed Medical Branch alendronate 2022-0 Yes Univer s 70 mg 1-26 ity of tablet 00:00: [place] [facility] Branch zolpidem 10 2022-0 Yes 1 tablet [place] mg tablet 1-26 at bedtime ity of 00:00: as needed Medical Branch alendronate 2022-0 Yes Univer s 70 mg 1-26 ity of tablet 00:00: [place] [address] Medical Branch zolpidem 10 2022-0 Yes 1 tablet [place] mg tablet 1-26 at bedtime ity of 00:00: as needed Medical Branch alendronate 2022-0 Yes Univer s 70 mg 1-26 ity of tablet 00:00: [place] [address] Medical Branch zolpidem 10 Yes 1 tablet [place] mg tablet -26 at bedtime ity of 00:00: as needed Medical Branch metoprolol 2022- No [id number] 25mg Take 1 [facility] succinate 1-26 04-27 tablet by ity of XL (TOPROL 00:00: 04:59 mouth in [place] XL) 25 mg 00 :00 the Medical 24 hr morning Branch tablet for 90 days. metoprolol 2022- No [id number] 25mg Take 1 [facility] succinate 1-26 04-27 tablet by ity of XL (TOPROL 00:00: 04:59 mouth in [place] XL) 25 mg 00 :00 the Medical 24 hr morning Branch tablet for 90 days. metoprolol 2022- No [id number] 25mg Take 1 [facility] succinate 1-26 -27 tablet by ity of XL (TOPROL 00:00: 04:59 mouth in [place] XL) 25 mg 00 :00 the Medical 24 hr morning Branch tablet for 90 days. metoprolol 2022- No [id number] 25mg Take 1 [facility] succinate 1-26 -27 tablet by ity of XL (TOPROL 00:00: 04:59 mouth in [place] XL) 25 mg 00 :00 the Medical 24 hr morning Branch tablet for 90 days. metoprolol 2022- No [id number] 25mg Take 1 [facility] succinate 1-26 -27 tablet by ity of XL (TOPROL 00:00: 04:59 mouth in [place] XL) 25 mg 00 :00 the Medical 24 hr morning Branch tablet for 90 days. metoprolol 2022- No [id number] 25mg Take 1 [facility] succinate 1-26 04-27 tablet by ity of XL (TOPROL 00:00: 04:59 mouth in [place] XL) 25 mg 00 :00 the Medical 24 hr morning Branch tablet for 90 days. metoprolol 2022- No [id number] 25mg Take 1 [facility] succinate 1-26 02-27 tablet by ity of XL (TOPROL 00:00: 00:00 mouth in [place] XL) 25 mg 00 :00 the Medical 24 hr morning Branch tablet for 90 days. metoprolol 2022- No [id number] 25mg Take 1 [facility] succinate 05-10-27 tablet by ity of XL (TOPROL 00:00: 00:00 mouth in [place] XL) 25 mg 00 :00 the Medical 24 hr morning Branch tablet for 90 days. metoprolol 2022- No [id number] 25mg Take 1 [facility] succinate 05-10-27 tablet by [facility] XL (TOPROL 00:00: 00:00 mouth in [place] XL) 25 mg 00 :00 the Medical 24 hr morning Branch tablet for 90 days. metoprolol 2022- No [id number] 25mg Take 1 [facility] succinate 05-10- tablet by [facility] of XL (TOPROL 00:00: 00:00 mouth in [place] XL) 25 mg 00 :00 the Medical 24 hr morning Branch tablet for 90 days. metoprolol 2022- No [id number] 25mg Take 1 [facility] succinate 05-10- tablet by [facility] XL (TOPROL 00:00: 00:00 mouth in [place] XL) 25 mg 00 :00 the Medical 24 hr morning Branch tablet for 90 days. Diclofenac 2022-0 Yes [facility] Sodium 1 % 1-25 it[facility] of gel 00:00: [place] 00 Medical Branch Diclofenac 2022-0 2022- No [facility] Sodium 1 % 1-25 -27 [facility] of gel 00:00: 00:00 [place] 00 :00 Medical Branch Diclofenac 2022-0 3- No [facility] Sodium 1 % 1-25 -27 [facility] of gel 00:00: 00:00 [place] 00 :00 Medical Branch Diclofenac 2022-0 3- No [facility] Sodium 1 % 1-25 -27 [facility] of gel 00:00: 00:00 [place] 00 :00 Medical Branch Diclofenac 3-0 3- No [facility] Sodium 1 % 1-25 02-27 ity of gel 00:00: 00:00 [place] 00 :00 Medical Branch Diclofenac 2022-0 3- No [facility] Sodium 1 % 1-25 -27 [facility] of gel 00:00: 00:00 [place] 00 :00 Medical Branch ezetimibe 2021-1 Yes 10mg Take 1 [facility] (ZETIA) 10 2-19 tablet by [facility] mg tablet 00:00: mouth [place] 00 the Medical morning. Branch metoprolol 2021-04 Yes [id number] 25mg Take 1 [facility] tartrate 25 2-19 tablet by [facility] mg tablet 00:00: mouth [place] 00 the Medical morning Branch and 1 tablet in the evening. ezetimibe 2021-04 Yes 10mg Take 1 [facility] (ZETIA) 10 2-19 tablet by [facility] mg tablet 00:00: mouth [place] 00 the Medical morning. Branch metoprolol 2021-04 Yes [id number] 25mg Take 1 [facility] tartrate 25 2-19 tablet by [facility] mg tablet 00:00: mouth [place] 00 the Medical morning Branch and 1 tablet in the evening. ezetimibe 2021-04 Yes 10mg Take 1 [facility] (ZETIA) 10 2-19 tablet by [facility] mg tablet 00:00: mouth [place] 00 the Medical morning. Branch metoprolol 2021-04 Yes [id number] 25mg Take 1 [facility] tartrate 25 2-19 tablet by [facility] mg tablet 00:00: mouth [place] 00 the Medical morning Branch and 1 tablet in the evening. ezetimibe 2021-04 Yes 10mg Take 1 [facility] (ZETIA) 10 2-19 tablet by [facility] mg tablet 00:00: mouth [place] 00 the Medical morning. Branch metoprolol 2021-04 Yes [id number] 25mg Take 1 [facility] tartrate 25 2-19 tablet by [facility] mg tablet 00:00: mouth [place] 00 the Medical morning Branch and 1 tablet in the evening. ezetimibe 2021-04 Yes 10mg Take 1 [facility] (ZETIA) 10 2-19 tablet by [facility] mg tablet 00:00: mouth [place] 00 the Medical morning. Branch metoprolol 2021-04 Yes [id number] 25mg Take 1 [facility] tartrate 25 2-19 tablet by [facility] mg tablet 00:00: mouth [place] 00 the Medical morning Branch and 1 tablet in the evening. ezetimibe 2021-04 Yes 10mg Take 1 [facility] (ZETIA) 10 2-19 tablet by [facility] mg tablet 00:00: mouth [place] 00 the Medical morning. Branch metoprolol 2021-04 Yes [id number] 25mg Take 1 [facility] tartrate 25 2-19 tablet by [facility] mg tablet 00:00: mouth [place] 00 the Medical morning Branch and 1 tablet in the evening. ezetimibe 2021-04 Yes 10mg Take 1 [facility] (ZETIA) 10 2-19 tablet by [facility] mg tablet 00:00: mouth [place] 00 the Medical morning. Branch metoprolol 2021-04 Yes [id number] 25mg Take 1 [facility] tartrate 25 [...] the Medical morning. Branch metoprolol 2021-04- No [id number] 25mg Take 1 [facility] tartrate 25 2-19 -26 tablet by it y of mg tablet 00:00: 00:00 mouth in [place] 00 :00 the Medical morning Branch and 1 tablet in the evening. metoprolol 2021-04- No [id number] 25mg Take 1 [facility] tartrate 25 2-19 -26 tablet by it y of mg tablet 00:00: 00:00 mouth in [place] 00 :00 the Medical morning Branch and 1 tablet in the evening. warfarin 2021-04 Yes [id number] 1mg Take 1 [facility] mg tablet 2-01 tablet by ity o f 00:00: mouth [place] 00 every Medical evening. Branch Alternate take 1mg x3 days, then 2mg x 4 days warfarin 2021-04 Yes [id number] 1mg Take 1 [facility] mg tablet 2-01 tablet by ity o f 00:00: mouth [place] 00 every Medical evening. Branch Alternate take 1mg x3 days, then 2mg x 4 days dofetilide 2021-04 Yes [id number] 125ug Take 1 [facility] 125 mcg 2-01 capsule by [facility] of capsule 00:00: mouth [place] 00 every 12 Medical (twelve) Branch hours. warfarin 2021-04 Yes [id number] 1mg Take 1 [facility] mg tablet 2-01 tablet by [facility] o f 00:00: mouth [place] 00 every Medical evening. Branch Alternate take 1mg x3 days, then 2mg x 4 days dofetilide 2021-04 Yes [id number] 125ug Take 1 [facility] 125 mcg 2-01 capsule by [facility] of capsule 00:00: mouth [place] 00 every 12 Medical (twelve) Branch hours. warfarin 2021-04 Yes [id number] 1mg Take 1 [facility] mg tablet 2-01 tablet by it[facility] o f 00:00: mouth [place] 00 every Medical evening. Branch Alternate take 1mg x3 days, then 2mg x 4 days dofetilide 2021-04 Yes [id number] 125ug Take 1 [facility] 125 mcg 2-01 capsule by [facility] of capsule 00:00: mouth [place] 00 every 12 Medical (twelve) Branch hours. warfarin 2021-04 Yes [id number] 1mg Take 1 [facility] mg tablet 2-01 tablet by it[facility] o f 00:00: mouth [place] 00 every Medical evening. Branch Alternate take 1mg x3 days, then 2mg x 4 days dofetilide 2021-04 Yes [id number] 125ug Take 1 [facility] 125 mcg 2-01 capsule by [facility] of capsule 00:00: mouth [place] 00 every 12 Medical (twelve) Branch hours. warfarin 2021-04 Yes [id number] 1mg Take 1 [facility] mg tablet 2-01 tablet by ity o f 00:00: mouth [place] 00 every Medical evening. Branch Alternate take 1mg x3 days, then 2mg x 4 days dofetilide 2021-04 Yes [id number] 125ug Take 1 [facility] 125 mcg 2-01 capsule by [facility] of capsule 00:00: mouth [place] 00 every 12 Medical (twelve) Branch hours. warfarin 2021-04 Yes [id number] 1mg Take 1 [facility] mg tablet 2-01 tablet by [facility] o f 00:00: mouth [place] 00 every Medical evening. Branch Alternate take 1mg x3 days, then 2mg x 4 days dofetilide 2021-04 Yes [id number] 125ug Take 1 [facility] 125 mcg 2-01 capsule by [facility] of capsule 00:00: mouth [place] 00 every 12 Medical (twelve) Branch hours. warfarin 2021-04 Yes [id number] 1mg Take 1 [facility] mg tablet 2-01 tablet by [facility] o f 00:00: mouth [place] 00 every Medical evening. Branch Alternate take 1mg x3 days, then 2mg x 4 days dofetilide 2021-04 Yes [id number] 125ug Take 1 [facility] 125 mcg 2-01 capsule by [facility] of capsule 00:00: mouth [place] 00 every 12 Medical (twelve) Branch hours. warfarin 2021-04 Yes [id number] 1mg Take 1 [facility] mg tablet 2-01 tablet by [facility] o f 00:00: mouth [place] 00 every Medical evening. Branch Alternate take 1mg x3 days, then 2mg x 4 days dofetilide 2021-04 Yes [id number] 125ug Take 1 [facility] 125 mcg 2-01 capsule by [facility] of capsule 00:00: mouth [place] 00 every 12 Medical (twelve) Branch hours. warfarin 2021-04 Yes [id number] 1mg Take 1 [facility] mg tablet 2-01 tablet by [facility] o f 00:00: mouth [place] 00 every Medical evening. Branch Alternate take 1mg x3 days, then 2mg x 4 days dofetilide 2021-04 Yes [id number] 125ug Take 1 [facility] 125 mcg 2-01 capsule by [facility] of capsule 00:00: mouth [place] 00 every 12 Medical (twelve) Branch hours. warfarin 2021-04 Yes [id number] 1mg Take 1 [facility] mg tablet 2-01 tablet by [facility] o f 00:00: mouth [place] 00 every Medical evening. Branch Alternate take 1mg x3 days, then 2mg x 4 days dofetilide 2021-04 Yes [id number] 125ug Take 1 [facility] 125 mcg 2-01 capsule by [facility] of capsule 00:00: mouth [place] 00 every 12 Medical (twelve) Branch hours. warfarin 2021-04 Yes [id number] 1mg Take 1 [facility] mg tablet 2-01 tablet by [facility] o f 00:00: mouth [place] 00 every Medical evening. Branch Alternate take 1mg x3 days, then 2mg x 4 days dofetilide 2021-04 Yes [id number] 125ug Take 1 [facility] 125 mcg 2-01 capsule by [facility] of capsule 00:00: mouth [place] 00 every 12 Medical (twelve) Branch hours. warfarin 2021-04 Yes [id number] 1mg Take 1 [facility] mg tablet 2-01 tablet by it[facility] o f 00:00: mouth [place] 00 every Medical evening. Branch Alternate take 1mg x3 days, then 2mg x 4 days dofetilide 2021-04 Yes [id number] 125ug Take 1 [facility] 125 mcg 2-01 capsule by [facility] of capsule 00:00: mouth [place] 00 every 12 Medical (twelve) Branch hours. warfarin 2021-04 Yes [id number] 1mg Take 1 [facility] mg tablet 2-01 tablet by [facility] o f 00:00: mouth [place] 00 every Medical evening. Branch Alternate take 1mg x3 days, then 2mg x 4 days dofetilide 2021-04 Yes [id number] 125ug Take 1 [facility] 125 mcg 2-01 capsule by [facility] of capsule 00:00: mouth [place] 00 every 12 Medical (twelve) Branch hours. warfarin 2021-04 Yes [id number] 1mg Take 1 [facility] mg tablet 2-01 tablet by [facility] o f 00:00: mouth [place] 00 every Medical evening. Branch Alternate take 1mg x3 days, then 2mg x 4 days dofetilide 2021-04 Yes [id number] 125ug Take 1 [facility] 125 mcg 2-01 capsule by [facility] of capsule 00:00: mouth [place] 00 every 12 Medical (twelve) Branch hours. warfarin 2021-04 Yes [id number] 1mg Take 1 [facility] mg tablet 2-01 tablet by [facility] o f 00:00: mouth [place] 00 every Medical evening. Branch Alternate take 1mg x3 days, then 2mg x 4 days dofetilide 2021-04 Yes [id number] 125ug Take 1 [facility] 125 mcg 2-01 capsule by [facility] of capsule 00:00: mouth [place] 00 every 12 Medical (twelve) Branch hours. warfarin 2021-04- No [id number] 1mg Take 1 [facility] mg tablet 2-01 - tablet by [facility] of 00:00: 00:00 mouth [place] 00 :00 every Medical evening. Branch Alternate take 1mg x3 days, then 2mg x 4 days dofetilide 2021-04- No [id number] 125ug Take 1 [facility] 125 mcg 05-16 capsule by ity o f capsule 00:00: 00:00 mouth [place] 00 :00 every 12 Medical (twelve) Branch hours. warfarin 1 2021-04- No [id number] 1mg Take 1 [facility] mg tablet 05-16 tablet by it[facility] of 00:00: 00:00 mouth [place] 00 :00 every Medical evening. Branch Alternate take 1mg x3 days, then 2mg x 4 days dofetilide 2021-04- No [id number] 125ug Take 1 [facility] 125 mcg 05-16 capsule by ity o f capsule 00:00: 00:00 mouth [place] 00 :00 every 12 Medical (twelve) Branch hours. warfarin 1 2021-04- No [id number] 1mg Take 1 [facility] mg tablet 05-16 tablet by [facility] of 00:00: 00:00 mouth [place] 00 :00 every Medical evening. Branch Alternate take 1mg x3 days, then 2mg x 4 days dofetilide 2021-04- No [id number] 125ug Take 1 [facility] 125 mcg 05-16 capsule by ity o f capsule 00:00: 00:00 mouth [place] 00 :00 every 12 Medical (twelve) Branch hours. warfarin 1 2021-04- No [id number] 1mg Take 1 [facility] mg tablet 05-16 tablet by [facility] of 00:00: 00:00 mouth [place] 00 :00 every Medical evening. Branch Alternate take 1mg x3 days, then 2mg x 4 days dofetilide 2021-04- No [id number] 125ug Take 1 [facility] 125 mcg 05-16 capsule by ity o f capsule 00:00: 00:00 mouth [place] 00 :00 every 12 Medical (twelve) Branch hours. warfarin 1 2021-04- No [id number] 1mg Take 1 [facility] mg tablet 05-16 tablet by [facility] of 00:00: 00:00 mouth [place] 00 :00 every Medical evening. Branch Alternate take 1mg x3 days, then 2mg x 4 days dofetilide 2021-04- No [id number] 125ug Take 1 [facility] 125 mcg 05-16 capsule by ity o f capsule 00:00: 00:00 mouth [place] 00 :00 every 12 Medical (twelve) Branch hours. warfarin 2021-04 Yes [id number] 1mg Take 1 [facility] mg tablet 1-01 tablet by ity o f 00:00: mouth [place] 00 every Medical evening. Branch Alternate take 1mg x4 days, then 2mg x 3 days warfarin 2021-04 Yes [id number] 1mg Take 1 [facility] mg tablet 1-01 tablet by ity o f 00:00: mouth [place] 00 every Medical evening. Branch Alternate take 1mg x4 days, then 2mg x 3 days warfarin 2021-04 Yes [id number] 1mg Take 1 [facility] mg tablet 1-01 tablet by ity o f 00:00: mouth [place] 00 every Medical evening. Branch Alternate take 1mg x4 days, then 2mg x 3 days warfarin 2021-04 Yes [id number] 1mg Take 1 [facility] mg tablet 1-01 tablet by ity o f 00:00: mouth [place] 00 every Medical evening. Branch Alternate take 1mg x4 days, then 2mg x 3 days warfarin 2021-04 Yes [id number] 1mg Take 1 [facility] mg tablet 1-01 tablet by ity o f 00:00: mouth [place] 00 every Medical evening. Branch Alternate take 1mg x4 days, then 2mg x 3 days warfarin 2021-04 Yes [id number] 1mg Take 1 [facility] mg tablet 1-01 tablet by ity o f 00:00: mouth [place] 00 every Medical evening. Branch Alternate take 1mg x4 days, then 2mg x 3 days warfarin 2021-04 Yes [id number] 1mg Take 1 [facility] mg tablet 1-01 tablet by ity o f 00:00: mouth [place] 00 every Medical evening. Branch Alternate take 1mg x4 days, then 2mg x 3 days warfarin 2021-04 Yes [id number] 1mg Take 1 [facility] mg tablet 1-01 tablet by it[facility] o f 00:00: mouth [place] 00 every Medical evening. Branch Alternate take 1mg x4 days, then 2mg x 3 days warfarin 2021-04 Yes [id number] 1mg Take 1 [facility] mg tablet 1 tablet by it[facility] o f 00:00: mouth [place] 00 every Medical evening. Branch Alternate take 1mg x4 days, then 2mg x 3 days warfarin 2021-04 Yes [id number] 1mg Take 1 [facility] mg tablet 1- tablet by ity o f 00:00: mouth [place] 00 every Medical evening. Branch Alternate take 1mg x4 days, then 2mg x 3 days warfarin 2021-04 Yes [id number] 1mg Take 1 [facility] mg tablet 1 tablet by [facility] o f 00:00: mouth [place] 00 every Medical evening. Branch Alternate take 1mg x4 days, then 2mg x 3 days warfarin 2021-04- No [id number] 1mg Take 1 [facility] mg tablet 04-15 tablet by [facility] of 00:00: 00:00 mouth [place] 00 :00 every Medical evening. Branch Alternate take 1mg x4 days, then 2mg x 3 days warfarin 2021-04 Yes [id number] 1mg Take 1 [facility] mg tablet 0-17 tablet by ity o f 00:00: mouth [place] 00 every Medical evening. Branch Alternate take 1mg x4 days, then 2mg x 3 days warfarin 2021-04- No [id number] 1mg Take 1 [facility] mg tablet 0-17 02-13 tablet by [facility]y of 00:00: 00:00 mouth [place] 00 :00 every Medical evening. Branch Alternate take 1mg x4 days, then 2mg x 3 days ezetimibe 2021-0 Yes 10mg Take 1 [facility] (ZETIA) 10 9- tablet by [facility] mg tablet 00:00: mouth [place] 00 the Medical morning. [place] ezetimibe 2021-0 Yes 10mg Take 1 [facility] (ZETIA) 10 9-02 tablet by [facility] of mg tablet 00:00: mouth [place] 00 the Medical morning. [place] ezetimibe 2-0 Yes 10mg Take 1 [facility] (ZETIA) 10 9-02 tablet by [facility] of mg tablet 00:00: mouth [place] 00 the Medical morning. [place] ezetimibe 2021-0 Yes 10mg Take 1 [facility] [...] :00 the Medical morning. Branch warfarin 1 2021-0 Yes [id number] 1mg Take 1 [facility] mg tablet 8-24 tablet by ity o f 00:00: mouth [place] 00 every Medical evening. Branch Alternate take 1mg x2days, then 2mg x 1 day warfarin 1 2021-0 Yes [id number] 1mg Take 1 [facility] mg tablet 8-24 tablet by ity o f 00:00: mouth [place] 00 every Medical evening. Branch Alternate take 1mg x2days, then 2mg x 1 day warfarin Yes [id number] 1mg Take 1 [facility] mg tablet 8-24 tablet by ity o f 00:00: mouth [place] 00 every Medical evening. Branch Alternate take 1mg x2days, then 2mg x 1 day warfarin Yes [id number] 1mg Take 1 [facility] mg tablet 8-24 tablet by ity o f 00:00: mouth [place] 00 every Medical evening. Branch Alternate take 1mg x2days, then 2mg x 1 day warfarin Yes [id number] 1mg Take 1 [facility] mg tablet 8-24 tablet by ity o f 00:00: mouth [place] 00 every Medical evening. Branch Alternate take 1mg x2days, then 2mg x 1 day warfarin Yes [id number] 1mg Take 1 [facility] mg tablet 8-24 tablet by ity o f 00:00: mouth [place] 00 every Medical evening. Branch Alternate take 1mg x2days, then 2mg x 1 day warfarin Yes [id number] 1mg Take 1 [facility] mg tablet 8-24 tablet by ity o f 00:00: mouth [place] 00 every Medical evening. Branch Alternate take 1mg x2days, then 2mg x 1 day warfarin Yes [id number] 1mg Take 1 [facility] mg tablet 8-24 tablet by ity o f 00:00: mouth [place] 00 every Medical evening. Branch Alternate take 1mg x2days, then 2mg x 1 day warfarin Yes [id number] 1mg Take 1 [facility] mg tablet 8-24 tablet by ity o f 00:00: mouth [place] 00 every Medical evening. Branch Alternate take 1mg x2days, then 2mg x 1 day warfarin Yes [id number] 1mg Take 1 [facility] mg tablet 8-24 tablet by ity o f 00:00: mouth [place] 00 every Medical evening. Branch Alternate take 1mg x2days, then 2mg x 1 day warfarin Yes [id number] 1mg Take 1 [facility] mg tablet 8-24 tablet by ity o f 00:00: mouth [place] 00 every Medical evening. Branch Alternate take 1mg x2days, then 2mg x 1 day warfarin 1 Yes [id number] 1mg Take 1 [facility] mg tablet 8-24 tablet by ity o f 00:00: mouth [place] 00 every Medical evening. Branch Alternate take 1mg x2days, then 2mg x 1 day warfarin 1 Yes [id number] 1mg Take 1 [facility] mg tablet 8-24 tablet by ity o f 00:00: mouth [place] 00 every Medical evening. Branch Alternate take 1mg x2days, then 2mg x 1 day warfarin 1 2021- No [id number] 1mg Take 1 [facility] mg tablet 8-24 10-17 tablet by ity of 00:00: 00:00 mouth [place] 00 :00 every Medical evening. Branch Alternate take 1mg x2days, then 2mg x 1 day warfarin 1 2021- No [id number] 2mg Take 2 [facility] mg tablet 8- 08-24 tablets by ity of 00:00: 00:00 mouth [place] 00 :00 every Medical evening. Branch dofetilide 2021- No [id number] 125ug Take 1 [facility] 125 mcg 8-19 08-27 capsule by ity o f capsule 00:00: 04:59 mouth [place] 00 :00 every 12 Medical (twelve) Branch hours for 7 days. dofetilide 2021- No [id number] 125ug Take 1 [facility] 125 mcg 8-19 08-27 capsule by ity o f capsule 00:00: 04:59 mouth [place] 00 :00 every 12 Medical (twelve) Branch hours for 7 days. dofetilide 2021- No [id number] 125ug Take 1 [facility] 125 mcg 8-17 11-16 capsule by ity o f capsule 00:00: 05:59 mouth [place] 00 :00 every 12 Medical (twelve) Branch hours for 90 days. dofetilide 2021- No [id number] 125ug Take 1 [facility] 125 mcg 8-17 11-16 capsule by ity o f capsule 00:00: 05:59 mouth [place] 00 :00 every 12 Medical (twelve) Branch hours for 90 days. dofetilide 2021- No [id number] 125ug Take 1 [facility] 125 mcg 8-17 11-16 capsule by ity o f capsule 00:00: 05:59 mouth [place] 00 :00 every 12 Medical (twelve) Branch hours for 90 days. dofetilide 2021- No [id number] 125ug Take 1 [facility] 125 mcg 8-17 11-16 capsule by ity o f capsule 00:00: 05:59 mouth [place] 00 :00 every 12 Medical (twelve) Branch hours for 90 days. dofetilide 2021- No [id number] 125ug Take 1 [facility] 125 mcg 8-17 11-16 capsule by ity o f capsule 00:00: 05:59 mouth [place] 00 :00 every 12 Medical (twelve) Branch hours for 90 days. dofetilide 2021- No [id number] 125ug Take 1 [facility] 125 mcg 8-17 11-16 capsule by ity o f capsule 00:00: 05:59 mouth [place] 00 :00 every 12 Medical (twelve) Branch hours for 90 days. dofetilide 2021- No [id number] 125ug Take 1 [facility] 125 mcg 8-17 11-16 capsule by ity o f capsule 00:00: 05:59 mouth [place] 00 :00 every 12 Medical (twelve) Branch hours for 90 days. dofetilide 2021- No [id number] 125ug Take 1 [facility] 125 mcg 8-17 11-16 capsule by ity o f capsule 00:00: 05:59 mouth [place] 00 :00 every 12 Medical (twelve) Branch hours for 90 days. dofetilide 2021- No [id number] 125ug Take 1 [facility] 125 mcg 8-17 11-16 capsule by ity o f capsule 00:00: 05:59 mouth [place] 00 :00 every 12 Medical (twelve) Branch hours for 90 days. dofetilide 2021- No [id number] 125ug Take 1 [facility] 125 mcg 8-17 11-16 capsule by ity o f capsule 00:00: 05:59 mouth [place] 00 :00 every 12 Medical (twelve) Branch hours for 90 days. dofetilide 2021- No [id number] 125ug Take 1 [facility] 125 mcg 8-17 11-16 capsule by ity o f capsule 00:00: 05:59 mouth [place] 00 :00 every 12 Medical (twelve) Branch hours for 90 days. dofetilide 2021- No [id number] 125ug Take 1 [facility] 125 mcg 8-17 11-16 capsule by ity o f capsule 00:00: 05:59 mouth [place] 00 :00 every 12 Medical (twelve) Branch hours for 90 days. dofetilide 2021- No [id number] 125ug Take 1 [facility] 125 mcg 8-17 11-16 capsule by ity o f capsule 00:00: 05:59 mouth [place] 00 :00 every 12 Medical (twelve) Branch hours for 90 days. dofetilide 2021- No [id number] 125ug Take 1 [facility] 125 mcg 8-17 11-16 capsule by ity o f capsule 00:00: 05:59 mouth [place] 00 :00 every 12 Medical (twelve) Branch hours for 90 days. dofetilide 2021- No [id number] 125ug Take 1 [facility] 125 mcg 8-17 11-16 capsule by ity o f capsule 00:00: 05:59 mouth [place] 00 :00 every 12 Medical (twelve) Branch hours for 90 days. dofetilide 2021- No [id number] 125ug Take 1 [facility] 125 mcg 8-17 11-16 capsule by ity o f capsule 00:00: 05:59 mouth [place] 00 :00 every 12 Medical (twelve) Branch hours for 90 days. dofetilide 2021- No [id number] 125ug Take 1 [facility] 125 mcg 8-17 11-16 capsule by ity o f capsule 00:00: 05:59 mouth [place] 00 :00 every 12 Medical (twelve) Branch hours for 90 days. dofetilide 2021- No [id number] 125ug Take 1 [facility] 125 mcg 8-17 11-16 capsule by ity o f capsule 00:00: 05:59 mouth [place] 00 :00 every 12 Medical (twelve) Branch hours for 90 days. dofetilide 2021- No [id number] 125ug Take 1 [facility] 125 mcg 8-17 11-16 capsule by ity o f capsule 00:00: 05:59 mouth [place] 00 :00 every 12 Medical (twelve) Branch hours for 90 days. dofetilide 2021- No [id number] 125ug Take 1 [facility] 125 mcg 8-17 11-16 capsule by ity o f capsule 00:00: 05:59 mouth [place] 00 :00 every 12 Medical (twelve) Branch hours for 90 days. atorvastati 2022-0 Yes 80mg Take 1 [facility] ers n 80 mg 7-12 tablet by ity of tablet 00:00: mouth at [place] [address] bedtime. Medical Branch atorvastati 2-0 Yes 80mg Take 1 [facility] ers n 80 mg 7-12 tablet by ity of tablet 00:00: mouth at [place] [address] bedtime. Medical Branch atorvastati 2-0 Yes 80mg Take 1 [facility] ers n 80 mg 7-12 tablet by ity of tablet 00:00: mouth at [place] [address] bedtime. Medical Branch atorvastati 2-0 Yes 80mg Take 1 [facility] ers n 80 mg 7-12 tablet by ity of tablet 00:00: mouth at [place] [address] bedtime. Medical Branch atorvastati 2-0 Yes 80mg Take 1 [facility] ers n 80 mg 7-12 tablet by ity of tablet 00:00: mouth at [place] [address] bedtime. Medical Branch atorvastati 2-0 Yes 80mg Take 1 [facility] ers n 80 mg 7-12 tablet by ity of tablet 00:00: mouth at [place] [address] bedtime. Medical Branch atorvastati 2-0 Yes 80mg Take 1 [facility] ers n 80 mg 7-12 tablet by ity of tablet 00:00: mouth at [place] [address] bedtime. Medical Branch atorvastati 2-0 Yes 80mg Take 1 [facility] ers n 80 mg 7-12 tablet by ity of tablet 00:00: mouth at [place] [address] bedtime. Medical Branch atorvastati 2-0 Yes 80mg Take 1 [facility] ers n 80 mg 7-12 tablet by ity of tablet 00:00: mouth at [place] [address] bedtime. Medical Branch atorvastati 2-0 Yes 80mg Take 1 [facility] ers n 80 mg 7-12 tablet by ity of tablet 00:00: mouth at [place] [address] bedtime. Medical Branch atorvastati 2022-0 Yes 80mg Take 1 [facility] ers n 80 mg 7-12 tablet by ity of tablet 00:00: mouth at [place] [address] bedtime. Medical Branch atorvastati 2022-0 Yes 80mg Take 1 [facility] ers n 80 mg 7-12 tablet by ity of tablet 00:00: mouth at [place] [address] bedtime. Medical Branch atorvastati 2022-0 Yes 80mg Take 1 [facility] ers n 80 mg 7-12 tablet by ity of tablet 00:00: mouth at [place] [address] bedtime. Medical Branch atorvastati 2022-0 Yes 80mg Take 1 [facility] ers n 80 mg 7-12 tablet by ity of tablet 00:00: mouth at [place] [address] bedtime. Medical Branch atorvastati 2022-0 Yes 80mg Take 1 [facility] ers n 80 mg 7-12 tablet by ity of tablet 00:00: mouth at [place] bedtime. Medical Branch atorvastati 2022-0 Yes 80mg Take 1 [facility] ers n 80 mg 7-12 tablet by ity of tablet 00:00: mouth at [place] [address] bedtime. Medical Branch atorvastati 2-0 Yes 80mg Take 1 [facility] ers n 80 mg 7-12 tablet by ity of tablet 00:00: mouth at [place] [address] bedtime. Medical Branch atorvastati 2022-0 Yes 80mg Take 1 [facility] ers n 80 mg 7-12 tablet by ity of tablet 00:00: mouth at [place] [address] bedtime. Medical Branch atorvastati 2-0 Yes 80mg Take 1 [facility] ers n 80 mg 7-12 tablet by ity of tablet 00:00: mouth at [place] [address] bedtime. Medical Branch atorvastati 2-0 Yes 80mg Take 1 [facility] ers n 80 mg 7-12 tablet by ity of tablet 00:00: mouth at [place] [address] bedtime. Medical Branch atorvastati 2022-0 Yes 80mg Take 1 [facility] ers n 80 mg 7-12 tablet by ity of tablet 00:00: mouth at [place] [address] bedtime. Medical Branch atorvastati 2022-0 Yes 80mg Take 1 [facility] ers n 80 mg 7-12 tablet by ity of tablet 00:00: mouth at [place] [address] bedtime. Medical Branch atorvastati 2022-0 Yes 80mg Take 1 [facility] ers n 80 mg 7-12 tablet by ity of tablet 00:00: mouth at [place] [address] bedtime. Medical Branch atorvastati 2022-0 Yes 80mg Take 1 [facility] ers n 80 mg 7-12 tablet by ity of tablet 00:00: mouth at [place] [address] bedtime. Medical Branch atorvastati 2022-0 Yes 80mg Take 1 [facility] ers n 80 mg 7-12 tablet by [facility]y of tablet 00:00: mouth at [place] [address] bedtime. Medical Branch atorvastati 2022-0 Yes 80mg Take 1 [facility] ers n 80 mg 7-12 tablet by ity of tablet 00:00: mouth at [place] bedtime. Medical Branch atorvastati 2-0 Yes 80mg Take 1 [facility] ers n 80 mg 7-12 tablet by ity of tablet 00:00: mouth at [place] bedtime. Medical Branch atorvastati 2-0 Yes 80mg Take 1 [facility] n 80 mg 7-12 tablet by [facility] tablet 00:00: mouth at [place] bedtime. [facility] atorvastati 2-0 Yes 80mg Take 1 [facility] n 80 mg 7-12 tablet by [facility] of tablet 00:00: mouth at [place] bedtime. [facility] atorvastati 2-0 Yes 80mg Take 1 [facility] n 80 mg 7-12 tablet by [facility] of tablet 00:00: mouth at [place] [address] bedtime. [facility] atorvastati 2-0 Yes 80mg Take 1 [facility] n 80 mg 7-12 tablet by [facility] of tablet 00:00: mouth at [place] [address] bedtime. [facility] atorvastati 2-0 Yes 80mg Take 1 [facility] n 80 mg 7-12 tablet by [facility] of tablet 00:00: mouth at [place] bedtime. [facility] atorvastati 2-0 Yes 80mg Take 1 [facility] n 80 mg 7-12 tablet by [facility] of tablet 00:00: mouth at [place] [address] bedtime. [facility] atorvastati 2022-0 Yes 80mg Take 1 [facility] n 80 mg 7-12 tablet by [facility] of tablet 00:00: mouth at [place] [address] bedtime. [facility] atorvastati 2-0 Yes 80mg Take 1 [facility] n 80 mg 7-12 tablet by [facility] of tablet 00:00: mouth at [place] [address] bedtime. [facility] atorvastati 2022-0 Yes 80mg Take 1 [facility] n 80 mg 7-12 tablet by [facility] of tablet 00:00: mouth at [place] [address] bedtime. [facility] atorvastati 2022-0 Yes 80mg Take 1 [facility] n 80 mg 7-12 tablet by [facility] of tablet 00:00: mouth at [place] [address] bedtime. [facility] atorvastati 2022-0 Yes 80mg Take 1 [facility] n 80 mg 7-12 tablet by [facility] of tablet 00:00: mouth at [place] [address] bedtime. [facility] atorvastati 2022-0 Yes 80mg Take 1 [facility] n 80 mg 7-12 tablet by [facility] of tablet 00:00: mouth at [place] [address] bedtime. [facility] atorvastati 2022-0 Yes 80mg Take 1 [facility] n 80 mg 7-12 tablet by [facility] of tablet 00:00: mouth at [place] bedtime. [facility] atorvastati 2022-0 Yes 80mg Take 1 [facility] 80 mg 7-12 tablet by [facility] tablet 00:00: mouth at [place] [address] bedtime. [facility] atorvastati 2-0 Yes 80mg Take 1 [facility] 80 mg 7-12 tablet by [facility] of tablet 00:00: mouth at [place] [address] bedtime. [facility] atorvastati 2022-0 Yes 80mg Take 1 [facility] 80 mg 7-12 tablet by [facility] tablet 00:00: mouth at [place] [address] bedtime. [facility] atorvastati 2-0 Yes 80mg Take 1 [facility] 80 mg 7-12 tablet by [facility] tablet 00:00: mouth at [place] [address] bedtime. [facility] atorvastati 2-0 Yes 80mg Take 1 [facility] 80 mg 7-12 tablet by [facility] tablet 00:00: mouth at [place] [address] bedtime. [facility] atorvastati 2022-0 Yes 80mg Take 1 [facility] 80 mg 7-12 tablet by [facility] of tablet 00:00: mouth at [place] [address] bedtime. [facility] atorvastati 2022-0 Yes 80mg Take 1 [facility] 80 mg 7-12 tablet by [facility] of tablet 00:00: mouth at [place] [address] bedtime. [facility] atorvastati 2022-0 Yes 80mg Take 1 [facility] 80 mg 7-12 tablet by [facility] of tablet 00:00: mouth at [place] [address] bedtime. [facility] atorvastati 2022-0 Yes 80mg Take 1 [facility] 80 mg 7-12 tablet by [facility] of tablet 00:00: mouth at [place] [address] bedtime. [facility] atorvastati 2022-0 Yes 80mg Take 1 [facility] 80 mg 7-12 tablet by [facility] of tablet 00:00: mouth at [place] [address] bedtime. [facility] atorvastati 2022-0 Yes 80mg Take 1 [facility] 80 mg 7-12 tablet by [facility] of tablet 00:00: mouth at [place] bedtime. [facility] atorvastati 2-0 Yes 80mg Take 1 [facility] 80 mg 7-12 tablet by [facility] of tablet 00:00: mouth at [place] bedtime. [facility] atorvastati 2-0 Yes 80mg Take 1 [facility] 80 mg 7-12 tablet by [facility] of tablet 00:00: mouth at [place] bedtime. [facility] atorvastati 2-0 Yes 80mg Take 1 [facility] 80 mg 7-12 tablet by [facility] of tablet 00:00: mouth at [place] bedtime. [facility] atorvastati 2-0 Yes 80mg Take 1 [facility] 80 mg 7-12 tablet by [facility] of tablet 00:00: mouth at [place] [address] bedtime. [facility] atorvastati 2-0 Yes 80mg Take 1 [facility] 80 mg 7-12 tablet by [facility] of tablet 00:00: mouth at [place] [address] bedtime. [facility] atorvastati 2-0 Yes 80mg Take 1 [facility] 80 mg 7-12 tablet by [facility] of tablet 00:00: mouth at [place] bedtime. [facility] atorvastati 2-0 Yes 80mg Take 1 [facility] 80 mg 7-12 tablet by [facility] of tablet 00:00: mouth at [place] [address] bedtime. [facility] atorvastati 2022-0 Yes 80mg Take 1 [facility] 80 mg 7-12 tablet by [facility] of tablet 00:00: mouth at [place] [address] bedtime. [facility] atorvastati 2-0 Yes 80mg Take 1 [facility] 80 mg 7-12 tablet by [facility] of tablet 00:00: mouth at [place] [address] bedtime. [facility] atorvastati 2022-0 Yes 80mg Take 1 [facility] 80 mg 7-12 tablet by [facility] of tablet 00:00: mouth at [place] [address] bedtime. [facility] atorvastati 2022-0 Yes 80mg Take 1 [facility] 80 mg 7-12 tablet by [facility] of tablet 00:00: mouth at [place] [address] bedtime. [facility] atorvastati 2022-0 Yes 80mg Take 1 [facility] 80 mg 7-12 tablet by [facility] of tablet 00:00: mouth at [place] [address] bedtime. [facility] atorvastati 2022-0 Yes 80mg Take 1 [facility] 80 mg 7-12 tablet by [facility] of tablet 00:00: mouth at [place] [address] bedtime. [facility] atorvastati 2022-0 Yes 80mg Take 1 [facility] 80 mg 7-12 tablet by [facility] of tablet 00:00: mouth at [place] bedtime. [facility] atorvastati 2022-0 Yes 80mg Take 1 [facility] 80 mg 7-12 tablet by [facility] tablet 00:00: mouth at [place] [address] bedtime. [facility] atorvastati 2-0 Yes 80mg Take 1 [facility] 80 mg 7-12 tablet by [facility] tablet 00:00: mouth at [place] [address] bedtime. [facility] atorvastati 2022-0 Yes 80mg Take 1 [facility] 80 mg 7-12 tablet by [facility] of tablet 00:00: mouth at [place] [address] bedtime. [facility] atorvastati 2-0 Yes 80mg Take 1 [facility] 80 mg 7-12 tablet by [facility] of tablet 00:00: mouth at [place] [address] bedtime. [facility] atorvastati 2-0 Yes 80mg Take 1 [facility] 80 mg 7-12 tablet by [facility] tablet 00:00: mouth at [place] [address] bedtime. [facility] atorvastati 2022-0 Yes 80mg Take 1 [facility] 80 mg 7-12 tablet by [facility] of tablet 00:00: mouth at [place] [address] bedtime. [facility] atorvastati 2022-0 Yes 80mg Take 1 [facility] 80 mg 7-12 tablet by [facility] of tablet 00:00: mouth at [place] [address] bedtime. [facility] atorvastati 2022-0 Yes 80mg Take 1 [facility] 80 mg 7-12 tablet by [facility] of tablet 00:00: mouth at [place] [address] bedtime. [facility] atorvastati 2022-0 Yes 80mg Take 1 [facility] 80 mg 7-12 tablet by [facility] of tablet 00:00: mouth at [place] [address] bedtime. [facility] atorvastati 2022-0 Yes 80mg Take 1 [facility] 80 mg 7-12 tablet by [facility] of tablet 00:00: mouth at [place] [address] bedtime. [facility] atorvastati 2021-0 Yes 80mg Take 1 [facility] 80 mg 7-12 tablet by [facility] of tablet 00:00: mouth at [place] [address] bedtime. [facility] atorvastati 2021-0 Yes 80mg Take 1 [facility] 80 mg 7-12 tablet by [facility] of tablet 00:00: mouth at [place] [address] bedtime. [facility] atorvastati 2021-0 Yes 80mg Take 1 [facility] 80 mg 7-12 tablet by [facility] of tablet 00:00: mouth at [place] [address] bedtime. [facility] atorvastati 2021-0 Yes 80mg Take 1 [facility] 80 mg 7-12 tablet by [facility] tablet 00:00: mouth at [place] [address] bedtime. [facility] atorvastati 2021-0 Yes 80mg Take 1 [facility] 80 mg 7-12 tablet by [facility] tablet 00:00: mouth at [place] [address] bedtime. [facility] atorvastati 2021-0 Yes 80mg Take 1 [facility] 80 mg 7-12 tablet by [facility] of tablet 00:00: mouth at [place] [address] bedtime. [facility] atorvastati 2021-0 Yes 80mg Take 1 [facility] 80 mg 7-12 tablet by [facility] of tablet 00:00: mouth at [place] [address] bedtime. [facility] atorvastati 2021-0 Yes 80mg Take 1 [facility] 80 mg 7-12 tablet by [facility] tablet 00:00: mouth at [place] [address] bedtime. [facility] atorvastati 2-0 Yes 80mg Take 1 [facility] 80 mg 7-12 tablet by [facility] tablet 00:00: mouth at [place] [address] bedtime. [facility] atorvastati 2-0 2023- No 80mg Take 1 [facility] vers n 80 mg 7-12 07-12 tablet by [facility] tablet 00:00: 00:00 mouth at [place] 00 :00 bedtime. [facility] ezetimibe 2-0 Yes 10mg Take 1 [facility] s (ZETIA) 10 5-20 tablet by [facility] of mg tablet 00:00: mouth [place] 00 daily. [facility] ezetimibe 2-0 Yes 10mg [...] mg tablet 00:00: mouth [place] 00 daily. [facility] ezetimibe 2022- No 10mg Take 1 Un[facility] rs (ZETIA) 10 5-20 09-02 tablet by it[facility] of mg tablet 00:00: 00:00 mouth [place] 00 :00 daily. [facility] furosemide 0 Yes [id number] 40mg Take 2 [facility] 20 mg 2-16 02 tablets by it[facility] of tablet 00:00: mouth [place] 00 daily. [facility] furosemide 2021-0 Yes [id number] 40mg Take 2 [facility] 20 mg 2-16 02 tablets by it[facility] of tablet 00:00: mouth [place] 00 daily. [facility] furosemide 2021-0 Yes [id number] 40mg Take 2 [facility] 20 mg 2-16 02 tablets by [facility] tablet 00:00: mouth [place] 00 daily. [facility] furosemide 2021-0 Yes [id number] 40mg Take 2 [facility] 20 mg 2-16 02 tablets by [facility] of tablet 00:00: mouth [place] 00 daily. [facility] furosemide 2021-0 Yes [id number] 40mg Take 2 [facility] 20 mg 2-16 02 tablets by it[facility] of tablet 00:00: mouth [place] 00 daily. [facility] furosemide 2021-0 Yes [id number] 40mg Take 2 [facility] 20 mg 2-16 02 tablets by it[facility] of tablet 00:00: mouth [place] 00 daily. [facility] furosemide 2021-0 Yes [id number] 40mg Take 2 [facility] 20 mg 2-16 02 tablets by [facility] of tablet 00:00: mouth [place] 00 daily. [facility] furosemide 2021-0 Yes [id number] 40mg Take 2 [facility] 20 mg 2-16 02 tablets by [facility] of tablet 00:00: mouth [place] 00 daily. [facility] furosemide 2021-0 Yes [id number] 40mg Take 2 [facility] 20 mg 2-16 02 tablets by [facility] of tablet 00:00: mouth [place] 00 daily. [facility] furosemide 2021-0 Yes [id number] 40mg Take 2 [facility] 20 mg 2-16 02 tablets by [facility] of tablet 00:00: mouth [place] 00 daily. [facility] furosemide 2021-0 Yes [id number] 40mg Take 2 [facility] 20 mg 2-16 02 tablets by [facility] of tablet 00:00: mouth [place] 00 daily. [facility] furosemide 0 Yes [id number] 40mg Take 2 [facility] 20 mg 2-16 02 tablets by it[facility] of tablet 00:00: mouth [place] 00 daily. [facility] furosemide 2021-0 Yes [id number] 40mg Take 2 [facility] 20 mg 2-16 02 tablets by [facility] of tablet 00:00: mouth [place] 00 daily. [facility] furosemide 0 Yes [id number] 40mg Take 2 [facility] 20 mg 2-16 02 tablets by [facility] of tablet 00:00: mouth [place] 00 daily. [facility] furosemide 2021-0 Yes [id number] 40mg Take 2 [facility] 20 mg 2-16 02 tablets by it[facility] of tablet 00:00: mouth [place] 00 daily. [facility] furosemide 2021-0 Yes [id number] 40mg Take 2 [facility] 20 mg 2-16 02 tablets by [facility] of tablet 00:00: mouth [place] 00 daily. [facility] furosemide 2021-0 Yes [id number] 40mg Take 2 [facility] 20 mg 2-16 02 tablets by [facility] of tablet 00:00: mouth [place] 00 daily. [facility] furosemide 2021-0 Yes [id number] 40mg Take 2 [facility] 20 mg 2-16 02 tablets by it[facility] of tablet 00:00: mouth [place] 00 daily. [facility] furosemide 2021-0 Yes [id number] 40mg Take 2 [facility] 20 mg 2-16 02 tablets by it[facility] of tablet 00:00: mouth [place] 00 daily. [facility] furosemide 2021-0 Yes [id number] 40mg Take 2 [facility] 20 mg 2-16 02 tablets by it[facility] of tablet 00:00: mouth [place] 00 daily. [facility] furosemide 2021-0 Yes [id number] 40mg Take 2 [facility] 20 mg 2-16 02 tablets by it[facility] of tablet 00:00: mouth [place] 00 daily. [facility] furosemide 2021-0 Yes [id number] 40mg Take 2 [facility] 20 mg 2-16 02 tablets by it[facility] of tablet 00:00: mouth [place] 00 daily. [facility] furosemide 2021-0 Yes [id number] 40mg Take 2 [facility] 20 mg 2-16 02 tablets by ity of tablet 00:00: mouth [place] 00 daily. [facility] furosemide 2021-0 Yes [id number] 40mg Take 2 [facility] 20 mg 2-16 02 tablets by ity of tablet 00:00: mouth [place] 00 daily. [facility] furosemide 2021-0 Yes [id number] 40mg Take 2 [facility] 20 mg 2-16 02 tablets by ity of tablet 00:00: mouth [place] 00 daily. [facility] furosemide 2021-0 Yes [id number] 40mg Take 2 [facility] 20 mg 2-16 02 tablets by it[facility] of tablet 00:00: mouth [place] 00 daily. [facility] furosemide 2021-0 Yes [id number] 40mg Take 2 [facility] 20 mg 2-16 02 tablets by ity of tablet 00:00: mouth [place] 00 daily. [facility] furosemide 2021-0 Yes [id number] 40mg Take 2 [facility] 20 mg 2-16 02 tablets by ity of tablet 00:00: mouth [place] 00 daily. [facility] furosemide 2021-0 Yes [id number] 40mg Take 2 [facility] 20 mg 2-16 02 tablets by ity of tablet 00:00: mouth [place] 00 daily. [facility] Branch furosemide 2021-0 Yes [id number] 40mg Take 2 [facility] 20 mg 2-16 02 tablets by ity of tablet 00:00: mouth [place] 00 daily. [facility] furosemide 2021-0 Yes [id number] 40mg Take 2 [facility] 20 mg 2-16 02 tablets by ity of tablet 00:00: mouth [place] 00 daily. [facility] Branch furosemide 2021-0 Yes [id number] 40mg Take 2 [facility] 20 mg 2-16 02 tablets by it[facility] of tablet 00:00: mouth [place] 00 daily. [facility] Branch furosemide 2021-0 Yes [id number] 40mg Take 2 [facility] 20 mg 2-16 02 tablets by ity of tablet 00:00: mouth [place] 00 daily. [facility] Branch furosemide 0 Yes [id number] 40mg Take 2 [facility] 20 mg 2-16 02 tablets by ity of tablet 00:00: mouth [place] 00 daily. [facility] Branch furosemide 0 Yes [id number] 40mg Take 2 [facility] 20 mg 2-16 02 tablets by it[facility] of tablet 00:00: mouth [place] 00 daily. [facility] Branch furosemide 0 Yes [id number] 40mg Take 2 [facility] 20 mg 2-16 02 tablets by ity of tablet 00:00: mouth [place] 00 daily. [facility] Branch furosemide 0 Yes [id number] 40mg Take 2 [facility] 20 mg 2-16 02 tablets by ity of tablet 00:00: mouth [place] 00 daily. [facility] Branch furosemide 0 Yes [id number] 40mg Take 2 [facility] 20 mg 2-16 02 tablets by ity of tablet 00:00: mouth [place] 00 daily. [facility] Branch furosemide 0 Yes [id number] 40mg Take 2 [facility] 20 mg 2-16 02 tablets by ity of tablet 00:00: mouth [place] 00 daily. [facility] Branch furosemide 0 Yes [id number] 40mg Take 2 [facility] 20 mg 2-16 02 tablets by ity of tablet 00:00: mouth [place] 00 daily. [facility] Branch furosemide 0 Yes [id number] 40mg Take 2 [facility] 20 mg 2-16 02 tablets by ity of tablet 00:00: mouth [place] 00 daily. [facility] Branch furosemide 0 Yes [id number] 40mg Take 2 [facility] 20 mg 2-16 02 tablets by ity of tablet 00:00: mouth [place] 00 daily. [facility] Branch furosemide 2021-0 2022- No [id number] 40mg Take 2 [facility] 20 mg 2-16 02-27 02 tablets by ity of tablet 00:00: 00:00 mouth [place] 00 :00 daily. [facility] Branch furosemide 2021-0 3- No [id number] 40mg Take 2 [facility] 20 mg 2-16 02-27 02 tablets by ity of tablet 00:00: 00:00 mouth [place] 00 :00 daily. [facility] Branch furosemide 2021-0 2022- No [id number] 40mg Take 2 [facility] 20 mg 2-16 02- 02 tablets by ity of tablet 00:00: 00:00 mouth [place] 00 :00 daily. Medical Branch furosemide 2022- No [id number] 40mg Take 2 [facility] 20 mg 2-16 - 02 tablets by ity of tablet 00:00: 00:00 mouth [place] 00 :00 daily. [facility] Branch furosemide 2022- No [id number] 40mg Take 2 [facility] 20 mg 2-16 - 02 tablets by ity of tablet 00:00: 00:00 mouth [place] 00 :00 daily. [facility] Branch metoprolol 2020-04 Yes [id number] 25mg Take 1 U nivers tartrate 25 2-15 tablet by ity of mg tablet 00:00: [facility] (two) Medical times Branch daily. metoprolol 2020-04 Yes [id number] 25mg Take 1 U nivers tartrate 25 2-15 tablet by ity of mg tablet 00:00: [facility] (two) Medical times Branch daily. metoprolol 2020-04 Yes [id number] 25mg Take 1 U nivers tartrate 25 2-15 tablet by ity of mg tablet 00:00: mouth (two) Medical times Branch daily. metoprolol 2020-04 Yes [id number] 25mg Take 1 U nivers tartrate 25 2-15 tablet by ity of mg tablet 00:00: [facility] (two) Medical times Branch daily. metoprolol 2020-04 Yes [id number] 25mg Take 1 U nivers tartrate 25 2-15 tablet by ity of mg tablet 00:00: mouth (two) Medical times Branch daily. metoprolol 2020-04 Yes [id number] 25mg Take 1 U nivers tartrate 25 2-15 tablet by ity of mg tablet 00:00: mouth (two) Medical times Branch daily. metoprolol 2020-04 Yes [id number] 25mg Take 1 U nivers tartrate 25 2-15 tablet by ity of mg tablet 00:00: mouth (two) Medical times Branch daily. metoprolol 2020-04 Yes [id number] 25mg Take 1 U nivers tartrate 25 2-15 tablet by ity of mg tablet 00:00: mouth (two) Medical times Branch daily. metoprolol 2020-04 Yes [id number] 25mg Take 1 U nivers tartrate 25 2-15 tablet by ity of mg tablet 00:00: mouth (two) Medical times Branch daily. metoprolol 2020-04 Yes [id number] 25mg Take 1 U nivers tartrate 25 2-15 tablet by ity of mg tablet 00:00: mouth (two) Medical times Branch daily. metoprolol 2020-04 Yes [id number] 25mg Take 1 U nivers tartrate 25 2-15 tablet by ity of mg tablet 00:00: mouth (two) Medical times Branch daily. metoprolol 2020-04 Yes [id number] 25mg Take 1 U nivers tartrate 25 2-15 tablet by ity of mg tablet 00:00: mouth (two) Medical times Branch daily. metoprolol 2020-04 Yes [id number] 25mg Take 1 U nivers tartrate 25 2-15 tablet by ity of mg tablet 00:00: mouth (two) Medical times Branch daily. metoprolol 2020-04 Yes [id number] 25mg Take 1 U nivers tartrate 25 2-15 tablet by ity of mg tablet 00:00: mouth (two) Medical times Branch daily. metoprolol 2020-04 Yes [id number] 25mg Take 1 U nivers tartrate 25 2-15 tablet by ity of mg tablet 00:00: mouth (two) Medical times Branch daily. metoprolol 2020-04 Yes [id number] 25mg Take 1 U nivers tartrate 25 2-15 tablet by ity of mg tablet 00:00: mouth (two) Medical times Branch daily. metoprolol 2020-04 Yes [id number] 25mg Take 1 U nivers tartrate 25 2-15 tablet by ity of mg tablet 00:00: mouth (two) Medical times Branch daily. metoprolol 2020-04 Yes [id number] 25mg Take 1 U nivers tartrate 25 2-15 tablet by ity of mg tablet 00:00: mouth (two) Medical times Branch daily. metoprolol 2020-04 Yes [id number] 25mg Take 1 U nivers tartrate 25 2-15 tablet by ity of mg tablet 00:00: mouth (two) Medical times Branch daily. metoprolol 2020-04 Yes [id number] 25mg Take 1 U nivers tartrate 25 2-15 tablet by ity of mg tablet 00:00: mouth (two) Medical times Branch daily. metoprolol 2020-04 Yes [id number] 25mg Take 1 U nivers tartrate 25 2-15 tablet by ity of mg tablet 00:00: mouth (two) Medical times Branch daily. metoprolol 2020-04 Yes [id number] 25mg Take 1 U nivers tartrate 25 2-15 tablet by ity of mg tablet 00:00: mouth (two) Medical times Branch daily. metoprolol 2020-04 Yes [id number] 25mg Take 1 U nivers tartrate 25 2-15 tablet by ity of mg tablet 00:00: mouth (two) Medical times Branch daily. metoprolol 2020-04 Yes [id number] 25mg Take 1 U nivers tartrate 25 2-15 tablet by ity of mg tablet 00:00: mouth (two) Medical times Branch daily. metoprolol 2020-04 Yes [id number] 25mg Take 1 U nivers tartrate 25 2-15 tablet by ity of mg tablet 00:00: mouth (two) Medical times Branch daily. metoprolol 2020-04 Yes [id number] 25mg Take 1 U nivers tartrate 25 2-15 tablet by ity of mg tablet 00:00: mouth (two) Medical times Branch daily. metoprolol 2020-04 Yes [id number] 25mg Take 1 U nivers tartrate 25 2-15 tablet by ity of mg tablet 00:00: mouth (two) Medical times Branch daily. metoprolol 2020-04 Yes [id number] 25mg Take 1 U nivers tartrate 25 2-15 tablet by ity of mg tablet 00:00: mouth (two) Medical times Branch daily. metoprolol 2020-04 Yes [id number] 25mg Take 1 U nivers tartrate 25 2-15 tablet by ity of mg tablet 00:00: mouth (two) Medical times Branch daily. metoprolol 2020-04- No [id number] 25mg Take 1 [facility] tartrate 25 2-15 12-19 tablet by it y of mg tablet 00:00: 00:[place] mouth [place]two[place] Medical times Branch daily. polyethylen 2020-04 Yes [id number] 17g Take 1 Univers e glycol 0-29 Packet by ity of 3350 17 00:00: mouth [place] gram powder 00 daily. Medica l Branch polyethylen 2020-04 Yes [id number] 17g Take 1 Univers e glycol 0-29 Packet by ity of 3350 17 00:00: mouth [place] gram powder 00 daily. Medica l Branch polyethylen 2020-04 Yes [id number] 17g Take 1 Univers e glycol 0-29 Packet by ity of 3350 17 00:00: mouth [place] gram powder 00 daily. Medica l Branch polyethylen 2020-04 Yes [id number] 17g Take 1 Univers e glycol 0-29 Packet by ity of 3350 17 00:00: mouth [place] gram powder 00 daily. Medica l Branch polyethylen 2020-04 Yes [id number] 17g Take 1 Univers e glycol 0-29 Packet by ity of 3350 17 00:00: mouth [place] gram powder 00 daily. Medica l Branch polyethylen 2020-04 Yes [id number] 17g Take 1 Univers e glycol 0-29 Packet by ity of 3350 17 00:00: mouth [place] gram powder 00 daily. Medica l Branch polyethylen 2020-04 Yes [id number] 17g Take 1 [facility] e glycol 0-29 Packet by ity of 3350 17 00:00: mouth [place] gram powder 00 daily. Medica l Branch polyethylen 2020-04 Yes [id number] 17g Take 1 [facility] e glycol 0-29 Packet by ity of 3350 17 00:00: mouth [place] gram powder 00 daily. Medica l Branch polyethylen 2020-04 Yes [id number] 17g Take 1 Univers e glycol 0-29 Packet by ity of 3350 17 00:00: mouth [place] gram powder 00 daily. Medica l Branch polyethylen 2020-04 Yes [id number] 17g Take 1 Univers e glycol 0-29 Packet by ity of 3350 17 00:00: mouth [place] gram powder 00 daily. Medica l Branch polyethylen 2020-04 Yes [id number] 17g Take 1 Univers e glycol 0-29 Packet by ity of 3350 17 00:00: mouth [place] gram powder 00 daily. Medica l Branch polyethylen 2020-04 Yes [id number] 17g Take 1 Univers e glycol 0-29 Packet by ity of 3350 17 00:00: mouth [place] gram powder 00 daily. Medica l Branch polyethylen 2020-04 Yes [id number] 17g Take 1 Univers e glycol 0-29 Packet by ity of 3350 17 00:00: mouth [place] gram powder 00 daily. Medica l Branch polyethylen 2020-04 Yes [id number] 17g Take 1 Univers e glycol 0-29 Packet by ity of 3350 17 00:00: mouth [place] gram powder 00 daily. Medica l Branch polyethylen 2020-04 Yes [id number] 17g Take 1 [facility] e glycol 0-29 Packet by ity of 3350 17 00:00: mouth [place] gram powder 00 daily. Medica l Branch polyethylen 2020-04 Yes [id number] 17g Take 1 [facility] e glycol 0-29 Packet by ity of 3350 17 00:00: mouth [place] gram powder 00 daily. Medica l Branch polyethylen 2020-04 Yes [id number] 17g Take 1 [facility] e glycol 0-29 Packet by ity of 3350 17 00:00: mouth [place] gram powder 00 daily. Medica l Branch polyethylen 2020-04 Yes [id number] 17g Take 1 [facility] e glycol 0-29 Packet by ity of 3350 17 00:00: mouth [place] gram powder 00 daily. Medica l Branch polyethylen 2020-04 Yes [id number] 17g Take 1 [facility] e glycol 0-29 Packet by ity of 3350 17 00:00: mouth [place] gram powder 00 daily. Medica l Branch polyethylen 2020-04 Yes [id number] 17g Take 1 [facility] e glycol 0-29 Packet by ity of 3350 17 00:00: mouth [place] gram powder 00 daily. Medica l Branch polyethylen 2020-04 Yes [id number] 17g Take 1 [facility] e glycol 0-29 Packet by ity of 3350 17 00:00: mouth [place] gram powder 00 daily. Medica l Branch polyethylen 2020-04 Yes [id number] 17g Take 1 [facility] e glycol 0-29 Packet by ity of 3350 17 00:00: mouth [place] gram powder 00 daily. Medica l Branch polyethylen 2020-04 Yes [id number] 17g Take 1 [facility] e glycol 0-29 Packet by ity of 3350 17 00:00: mouth [place] gram powder 00 daily. Medica l Branch polyethylen 2020-04 Yes [id number] 17g Take 1 [facility] e glycol 0-29 Packet by ity of 3350 17 00:00: mouth [place] gram powder 00 daily. Medica l Branch polyethylen 2020-04 Yes [id number] 17g Take 1 [facility] e glycol 0-29 Packet by ity of 3350 17 00:00: mouth [place] gram powder 00 daily. Medica l Branch polyethylen 2020-04 Yes [id number] 17g Take 1 [facility] e glycol 0-29 Packet by ity of 3350 17 00:00: mouth [place] gram powder 00 daily. Medica l Branch polyethylen 2020-04 Yes [id number] 17g Take 1 [facility] e glycol 0-29 Packet by ity of 3350 17 00:00: mouth [place] gram powder 00 daily. Medica l Branch polyethylen 2020-04 Yes [id number] 17g Take 1 [facility] e glycol 0-29 Packet by ity of 3350 17 00:00: mouth [place] gram powder 00 daily. Medica l Branch polyethylen 2020-04 Yes [id number] 17g Take 1 [facility] e glycol 0-29 Packet by ity of 3350 17 00:00: mouth [place] gram powder 00 daily. Medica l Branch polyethylen 2020-04 Yes [id number] 17g Take 1 [facility] e glycol 0-29 Packet by ity of 3350 17 00:00: mouth [place] gram powder 00 daily. Medica l Branch polyethylen 2020-04 Yes [id number] 17g Take 1 [facility] e glycol 0-29 Packet by ity of 3350 17 00:00: mouth [place] gram powder 00 daily. Medica l Branch polyethylen 2020-04 Yes [id number] 17g Take 1 [facility] e glycol 0-29 Packet by ity of 3350 17 00:00: mouth [place] gram powder 00 daily. Medica l Branch polyethylen 2020-04 Yes [id number] 17g Take 1 [facility] glycol 0-29 Packet by [facility] of 3350 17 00:00: mouth [place] gram powder 00 daily. [facility] polyethylen 2020-04 Yes [id number] 17g Take 1 [facility] glycol 0-29 Packet by [facility] of 3350 17 00:00: mouth [place] gram powder 00 daily. [facility] polyethylen 2020-04 Yes [id number] 17g Take 1 [facility] glycol 0-29 Packet by [facility] of 3350 17 00:00: mouth [place] gram powder 00 daily. [facility] polyethylen 2020-04 Yes [id number] 17g Take 1 [facility] glycol 0-29 Packet by [facility] of 3350 17 00:00: mouth [place] gram powder 00 daily. [facility] polyethylen 2020-04 Yes [id number] 17g Take 1 [facility] glycol 0-29 Packet by [facility] of 3350 17 00:00: mouth [place] gram powder 00 daily. [facility] polyethylen 2020-04 Yes [id number] 17g Take 1 [facility] glycol 0-29 Packet by [facility] of 3350 17 00:00: mouth [place] gram powder 00 daily. [facility] polyethylen 2020-04 Yes [id number] 17g Take 1 [facility] glycol 0-29 Packet by [facility] of 3350 17 00:00: mouth [place] gram powder 00 daily. [facility] polyethylen 2020-04 Yes [id number] 17g Take 1 [facility] glycol 0-29 Packet by [facility] of 3350 17 00:00: mouth [place] gram powder 00 daily. [facility] polyethylen 2020-04 Yes [id number] 17g Take 1 [facility] glycol 0-29 Packet by [facility] of 3350 17 00:00: mouth [place] gram powder 00 daily. [facility] polyethylen 2020-04- No [id number] 17g Take 1 [facility] glycol 0-29 02-22 Packet by ity o f 3350 17 00:00: 00:00 mouth [place] gram powder 00 :00 daily. [facility] polyethylen 2020-04- No [id number] 17g Take 1 [facility] glycol 0-29 02-22 Packet by ity o f 3350 17 00:00: 00:00 mouth [place] gram powder 00 :00 daily. [facility] polyethylen 2020-043- No [id number] 17g Take 1 [facility] glycol 0-29 - Packet by ity o f 3350 17 00:00: 00:00 mouth [place] gram powder 00 :00 daily. [facility] docusate 2020-04 Yes [id number] 100mg Take 1 [facility] 100 mg 0-28 capsule by [facility] of capsule 00:00: mouth (two) Medical times Branch daily. docusate 2020-04 Yes [id number] 100mg Take 1 [facility] 100 mg 0-28 capsule by [facility] of capsule 00:00: mouth (two) Medical times Branch daily. docusate 2020-04 Yes [id number] 100mg Take 1 [facility] 100 mg 0-28 capsule by [facility] of capsule 00:00: mouth (two) Medical times Branch daily. docusate 2020-04 Yes [id number] 100mg Take 1 [facility] 100 mg 0-28 capsule by [facility] of capsule 00:00: mouth (two) Medical times Branch daily. docusate 2020-04 Yes [id number] 100mg Take 1 [facility] 100 mg 0-28 capsule by [facility]y of capsule 00:00: mouth (two) Medical times Branch daily. docusate 2020-04 Yes [id number] 100mg Take 1 [facility] 100 mg 0-28 capsule by [facility]y of capsule 00:00: mouth (two) Medical times Branch daily. docusate 2020-04 Yes [id number] 100mg Take 1 [facility] 100 mg 0-28 capsule by [facility]y of capsule 00:00: mouth (two) Medical times Branch daily. docusate 2020-04 Yes [id number] 100mg Take 1 [facility] 100 mg 0-28 capsule by ity of capsule 00:00: mouth (two) Medical times Branch daily. docusate 2020-04 Yes [id number] 100mg Take 1 [facility] 100 mg 0-28 capsule by ity of capsule 00:00: mouth (two) Medical times Branch daily. docusate 2020-04 Yes [id number] 100mg Take 1 [facility] 100 mg 0-28 capsule by ity of capsule 00:00: mouth (two) Medical times Branch daily. docusate 2020-04 Yes [id number] 100mg Take 1 [facility] 100 mg 0-28 capsule by ity of capsule 00:00: mouth (two) Medical times Branch daily. docusate 2020-04 Yes [id number] 100mg Take 1 [facility] 100 mg 0-28 capsule by ity of capsule 00:00: mouth (two) Medical times Branch daily. docusate 2020-04 Yes [id number] 100mg Take 1 [facility] 100 mg 0-28 capsule by ity of capsule 00:00: mouth (two) Medical times Branch daily. docusate 2020-04 Yes [id number] 100mg Take 1 [facility] 100 mg 0-28 capsule by ity of capsule 00:00: mouth (two) Medical times Branch daily. docusate 2020-04 Yes [id number] 100mg Take 1 [facility] 100 mg 0-28 capsule by ity of capsule 00:00: mouth (two) Medical times Branch daily. docusate 2020-04 Yes [id number] 100mg Take 1 [facility] 100 mg 0-28 capsule by ity of capsule 00:00: mouth (two) Medical times Branch daily. docusate 2020-04 Yes [id number] 100mg Take 1 [facility] 100 mg 0-28 capsule by ity of capsule 00:00: mouth (two) Medical times Branch daily. docusate 2020-04 Yes [id number] 100mg Take 1 [facility] 100 mg 0-28 capsule by ity of capsule 00:00: mouth (two) Medical times Branch daily. docusate 2020-04 Yes [id number] 100mg Take 1 [facility] 100 mg 0-28 capsule by ity of capsule 00:00: mouth (two) Medical times Branch daily. docusate 2020-04 Yes [id number] 100mg Take 1 [facility] 100 mg 0-28 capsule by ity of capsule 00:00: mouth (two) Medical times Branch daily. docusate 2020-04 Yes [id number] 100mg Take 1 [facility] 100 mg 0-28 capsule by ity of capsule 00:00: mouth (two) Medical times Branch daily. docusate 2020-04 Yes [id number] 100mg Take 1 [facility] 100 mg 0-28 capsule by ity of capsule 00:00: mouth (two) Medical times Branch daily. docusate 2020-04 Yes [id number] 100mg Take 1 [facility] 100 mg 0-28 capsule by ity of capsule 00:00: mouth (two) Medical times Branch daily. docusate 2020-04 Yes [id number] 100mg Take 1 [facility] 100 mg 0-28 capsule by ity of capsule 00:00: mouth (two) Medical times Branch daily. docusate 2020-04 Yes [id number] 100mg Take 1 [facility] 100 mg 0-28 capsule by ity of capsule 00:00: mouth (two) Medical times Branch daily. docusate 2020-04 Yes [id number] 100mg Take 1 [facility] 100 mg 0-28 capsule by ity of capsule 00:00: mouth (two) Medical times Branch daily. docusate 2020-04 Yes [id number] 100mg Take 1 [facility] 100 mg 0-28 capsule by ity of capsule 00:00: mouth (two) Medical times Branch daily. docusate 2020-04 Yes [id number] 100mg Take 1 [facility] 100 mg 0-28 capsule by ity of capsule 00:00: mouth (two) Medical times Branch daily. docusate 2020-04 Yes [id number] 100mg Take 1 [facility] 100 mg 0-28 capsule by ity of capsule 00:00: mouth (two) Medical times Branch daily. docusate 2020-04 Yes [id number] 100mg Take 1 [facility] 100 mg 0-28 capsule by ity of capsule 00:00: mouth 2 (two) Medical times Branch daily. docusate 2020-04 Yes [id number] 100mg Take 1 [facility] 100 mg 0-28 capsule by ity of capsule 00:00: mouth (two) Medical times Branch daily. docusate 2020-04 Yes [id number] 100mg Take 1 [facility] 100 mg 0-28 capsule by ity of capsule 00:00: mouth 2 [place] (two) Medical times Branch daily. docusate 2020-04 Yes [id number] 100mg Take 1 [facility] 100 mg 0-28 capsule by ity of capsule 00:00: mouth 2 [place] (two) Medical times Branch daily. docusate 2020-04 Yes [id number] 100mg Take 1 [facility] 100 mg 0-28 capsule by ity of capsule 00:00: mouth 2 [place] (two) Medical times Branch daily. docusate 2020-04 Yes [id number] 100mg Take 1 [facility] 100 mg 0-28 capsule by ity of capsule 00:00: mouth [address] [place] [address] (two) Medical times Branch daily. docusate 2020-04 Yes [id number] 100mg Take 1 [facility] 100 mg 0-28 capsule by ity of capsule 00:00: mouth [address] [place] [address] (two) Medical times Branch daily. docusate 2020-04 Yes [id number] 100mg Take 1 [facility] 100 mg 0-28 capsule by ity of capsule 00:00: mouth [address] [place] [address] (two) Medical times Branch daily. docusate 2020-04 Yes [id number] 100mg Take 1 [facility] 100 mg 0-28 capsule by ity of capsule 00:00: mouth 2 [place] (two) Medical times Branch daily. docusate 2020-04 Yes [id number] 100mg Take 1 [facility] 100 mg 0-28 capsule by ity of capsule 00:00: mouth [address] [place] [address] (two) Medical times Branch daily. docusate 2020-04 Yes [id number] 100mg Take 1 [facility] 100 mg 0-28 capsule by ity of capsule 00:00: mouth [address] [place] [address] (two) Medical times Branch daily. docusate 2020-04 Yes [id number] 100mg Take 1 [facility] 100 mg 0-28 capsule by ity of capsule 00:00: mouth 2 [place] (two) Medical times Branch daily. docusate 2020-043- No [id number] 100mg Take 1 [facility] 100 mg 0-28 02-22 capsule by ity of capsule 00:00: 00:00 mouth 2 [place] 00 :00 (two) Medical times Branch daily. docusate 2020-04- No [id number] 100mg Take 1 [facility] 100 mg 0-28 - capsule by ity of capsule 00:00: 00:00 mouth 2 [place] 00 :00 (two) Medical times Branch daily. docusate 2020-04- No [id number] 100mg Take 1 [facility] 100 mg 0-28 - capsule by ity of capsule 00:00: 00:00 mouth 2 [place] 00 :00 (two) Medical times Branch daily. gabapentin 2017-0 Yes Take by [facility] 300 mg 4-21 mouth ity of capsule 00:00: daily. [place] [facility] lidocaine 5 2017-0 Yes Univer s % (700 4-21 ity of mg/patch) 00:00: [place] patch [facility] gabapentin 2017-0 Yes Take by [facility] 300 mg 4-21 mouth ity of capsule 00:00: daily. [place] [facility] lidocaine 5 2017-0 Yes Univer s % (700 4-21 ity of mg/patch) 00:00: [place] patch [facility] gabapentin 2017-0 Yes Take by [facility] 300 mg 4-21 mouth ity of capsule 00:00: daily. [place] [facility] lidocaine 5 2017-0 Yes Univer s % (700 4-21 ity of mg/patch) 00:00: [place] patch [facility] gabapentin 2017-0 Yes Take by [facility] 300 mg 4-21 mouth ity of capsule 00:00: daily. [place] [facility] lidocaine 5 2017-0 Yes Univer s % (700 4-21 ity of mg/patch) 00:00: [place] patch [facility] gabapentin 2017-0 Yes Take by [facility] 300 mg 4-21 mouth ity of capsule 00:00: daily. [place] [facility] lidocaine 5 2017-0 Yes Univer s % (700 4-21 ity of mg/patch) 00:00: [place] patch [facility] gabapentin 2017-0 Yes Take by [facility] 300 mg 4-21 mouth ity of capsule 00:00: daily. [place] [facility] lidocaine 5 2017-0 Yes Univer [...] 4-21 mouth ity of capsule 00:00: daily. [place] [facility] lidocaine 5 2017-0 Yes Univer s % (700 4-21 ity of mg/patch) 00:00: [place] patch [facility] gabapentin 2017-0 Yes Take by [facility] 300 mg 4-21 mouth ity of capsule 00:00: daily. [place] [facility] lidocaine 5 2017-0 Yes Univer s % (700 4-21 ity of mg/patch) 00:00: [place] patch [facility] gabapentin 2017-0 Yes Take by [facility] 300 mg 4-21 mouth ity of capsule 00:00: daily. [place] [facility] lidocaine 5 2017-0 Yes Univer [...] 4-21 mouth ity of capsule 00:00: daily. [place] [facility] lidocaine 5 2017-0 Yes Univer s % (700 4-21 ity of mg/patch) 00:00: [place] patch 00 Medical Branch gabapentin 2017-0 Yes Take by [facility] 300 mg 4-21 mouth ity of capsule 00:00: daily. [place] [facility] lidocaine 5 2017-0 Yes Univer s % (700 4-21 ity of mg/patch) 00:00: [place] patch 00 Medical [facility] gabapentin 2017-0 Yes Take by [facility] 300 mg 4-21 mouth ity of capsule 00:00: daily. [place] [facility] lidocaine 5 2017-0 Yes Univer s % (700 4-21 ity of mg/patch) 00:00: [place] patch [facility] gabapentin 2017-0 Yes Take by [facility] 300 mg 4-21 mouth ity of capsule 00:00: daily. [place] [facility] lidocaine 5 2017-0 Yes Univer s % (700 4-21 ity of mg/patch) 00:00: [place] patch [facility] gabapentin 2017-0 Yes Take by [facility] 300 mg 4-21 mouth ity of capsule 00:00: daily. [place] [facility] lidocaine 5 2017-0 Yes Univer s % (700 4-21 ity of mg/patch) 00:00: [place] patch [facility] gabapentin 2017-0 Yes Take by [facility] 300 mg 4-21 mouth ity of capsule 00:00: daily. [place] [facility] lidocaine 5 2017-0 Yes Univer s % (700 4-21 ity of mg/patch) 00:00: [place] patch [facility] gabapentin 2017-0 Yes Take by [facility] 300 mg 4-21 mouth ity of capsule 00:00: daily. [place] [facility] lidocaine 5 2017-0 Yes Univer s % (700 4-21 ity of mg/patch) 00:00: [place] patch Medical [facility] gabapentin 2017-0 Yes Take by [facility] 300 mg 4-21 mouth ity of capsule 00:00: daily. [place] [facility] lidocaine 5 2017-0 Yes Univer s % (700 4-21 ity of mg/patch) 00:00: [place] patch 00 Medical [facility] gabapentin 2017-0 Yes Take by [facility] 300 mg 4-21 mouth ity of capsule 00:00: daily. [place] [facility] lidocaine 5 2017-0 Yes Univer [...] 4-21 mouth ity of capsule 00:00: daily. [place] [facility] lidocaine 5 2017-0 Yes Univer s % (700 4-21 ity of mg/patch) 00:00: [place] patch Medical [facility] gabapentin 2017-0 Yes Take by [facility] 300 mg 4-21 mouth ity of capsule 00:00: daily. [place] [facility] lidocaine 5 2017-0 Yes Univer [...] 4-21 mouth ity of capsule 00:00: daily. [place] [facility] lidocaine 5 2017-0 Yes Univer s % (700 4-21 ity of mg/patch) 00:00: [place] patch [facility] gabapentin 2017-0 Yes Take by [facility] 300 mg 4-21 mouth ity of capsule 00:00: daily. [place] [facility] lidocaine 5 2017-0 Yes Univer s % (700 4-21 ity of mg/patch) 00:00: [place] patch [facility] gabapentin 2017-0 Yes Take by [facility] 300 mg 4-21 mouth ity of capsule 00:00: daily. [place] [facility] lidocaine 5 2017-0 Yes Univer [...] 4-21 mouth ity of capsule 00:00: daily. [place] [facility] lidocaine 5 2017-0 Yes Univer s % (700 4-21 ity of mg/patch) 00:00: [place] patch 00 [facility] gabapentin 2017-0 Yes Take by [facility] 300 mg 4-21 mouth ity of capsule 00:00: daily. [place] [facility] lidocaine 5 2017-0 Yes Univer s % (700 4-21 ity of mg/patch) 00:00: [place] patch 00 [facility] gabapentin 2017-0 Yes Take by [facility] 300 mg 4-21 mouth ity of capsule 00:00: daily. [place] [facility] lidocaine 5 2017-0 Yes Univer s % (700 4-21 ity of mg/patch) 00:00: [place] patch [facility] gabapentin 2017-0 Yes Take by [facility] 300 mg 4-21 mouth ity of capsule 00:00: daily. [place] [facility] lidocaine 5 2017-0 Yes Univer s % (700 4-21 ity of mg/patch) 00:00: [place] patch [facility] gabapentin 2017-0 Yes Take by [facility] 300 mg 4-21 mouth ity of capsule 00:00: daily. [place] [facility] lidocaine 5 2017-0 Yes Univer s % (700 4-21 ity of mg/patch) 00:00: [place] patch [facility] gabapentin 2017-0 Yes Take by [facility] 300 mg 4-21 mouth ity of capsule 00:00: daily. [place] [facility] lidocaine 5 2017-0 Yes Univer s % (700 4-21 ity of mg/patch) 00:00: [place] patch [facility] gabapentin 2017-0 Yes Take by [facility] 300 mg 4-21 mouth ity of capsule 00:00: daily. [place] [facility] lidocaine 5 2017-0 Yes Univer s % (700 4-21 ity of mg/patch) 00:00: [place] patch [facility] gabapentin 2017-0 Yes Take by [facility] 300 mg 4-21 mouth ity of capsule 00:00: daily. [place] [facility] lidocaine 5 2017-0 Yes Univer s % (700 4-21 ity of mg/patch) 00:00: [place] patch 00 [facility] gabapentin 2017-0 Yes Take by [facility] 300 mg 4-21 mouth ity of capsule 00:00: daily. [place] [facility] lidocaine 5 2017-0 Yes Univer [...] 4-21 mouth ity of capsule 00:00: daily. [place] [facility] lidocaine 5 2017-0 Yes Univer s % (700 4-21 ity of mg/patch) 00:00: [place] patch [facility] gabapentin 2017-0 Yes Take by [facility] 300 mg 4-21 mouth ity of capsule 00:00: daily. [place] [facility] lidocaine 5 2017-0 Yes Univer [...] 4-21 mouth ity of capsule 00:00: daily. [place] [facility] lidocaine 5 2017-0 Yes Univer s % (700 4-21 ity of mg/patch) 00:00: [place] patch [facility] gabapentin 2017-0 Yes Take by [facility] 300 mg 4-21 mouth ity of capsule 00:00: daily. [place] [facility] lidocaine 5 2017-0 Yes Univer s % (700 4-21 ity of mg/patch) 00:00: [place] patch [facility] gabapentin 2017-0 Yes Take by [facility] 300 mg 4-21 mouth ity of capsule 00:00: daily. [place] [facility] lidocaine 5 2017-0 Yes Univer [...] 4-21 mouth ity of capsule 00:00: daily. [place] [facility] lidocaine 5 2017-0 Yes Univer s % (700 4-21 ity of mg/patch) 00:00: [place] patch 00 [facility] gabapentin 2017-0 Yes Take by [facility] 300 mg 4-21 mouth ity of capsule 00:00: daily. [place] [facility] lidocaine 5 2017-0 Yes Univer s % (700 4-21 ity of mg/patch) 00:00: [place] patch 00 [facility] gabapentin 2017-0 Yes Take by [facility] 300 mg 4-21 mouth ity of capsule 00:00: daily. [place] [facility] lidocaine 5 2017-0 Yes Univer s % (700 4-21 ity of mg/patch) 00:00: [place] patch [facility] gabapentin 2017-0 Yes Take by [facility] 300 mg 4-21 mouth ity of capsule 00:00: daily. [place] [facility] lidocaine 5 2017-0 Yes Univer s % (700 4-21 ity of mg/patch) 00:00: [place] patch [facility] gabapentin 2017-0 Yes Take by [facility] 300 mg 4-21 mouth ity of capsule 00:00: daily. [place] [facility] lidocaine 5 2017-0 Yes Univer s % (700 4-21 ity of mg/patch) 00:00: [place] patch [facility] gabapentin 2017-0 Yes Take by [facility] 300 mg 4-21 mouth ity of capsule 00:00: daily. [place] [facility] lidocaine 5 2017-0 Yes Univer s % (700 4-21 ity of mg/patch) 00:00: [place] patch [facility] gabapentin 2017-0 Yes Take by [facility] 300 mg 4-21 mouth ity of capsule 00:00: daily. [place] [facility] lidocaine 5 2017-0 Yes Univer s % (700 4-21 ity of mg/patch) 00:00: [place] patch [facility] gabapentin 2017-0 Yes Take by [facility] 300 mg 4-21 mouth ity of capsule 00:00: daily. [place] [facility] lidocaine 5 2017-0 Yes Univer s % (700 4-21 ity of mg/patch) 00:00: [place] patch 00 [facility] Branch gabapentin 2017-0 Yes Take by [facility] 300 mg 4-21 mouth ity of capsule 00:00: daily. [place] [facility] lidocaine 5 2017-0 Yes Univer [...] 4-21 mouth ity of capsule 00:00: daily. [place] [facility] lidocaine 5 2017-0 Yes Univer s % (700 4-21 ity of mg/patch) 00:00: [place] patch [facility] gabapentin 2017-0 Yes Take by [facility] 300 mg 4-21 mouth ity of capsule 00:00: daily. [place] [facility] lidocaine 5 2017-0 Yes Univer [...] 4-21 mouth ity of capsule 00:00: daily. [place] [facility] lidocaine 5 2017-0 Yes Univer s % (700 4-21 ity of mg/patch) 00:00: [place] patch [facility] gabapentin 2017-0 Yes Take by [facility] 300 mg 4-21 mouth ity of capsule 00:00: daily. [place] [facility] lidocaine 5 2017-0 Yes Univer s % (700 4-21 ity of mg/patch) 00:00: [place] patch [facility] gabapentin 2017-0 Yes Take by [facility] ers 300 mg 4-21 mouth ity of capsule 00:00: daily. [place] [facility] lidocaine 5 2017-0 Yes Univer s % (700 4-21 ity of mg/patch) 00:00: [place] patch [facility] pantoprazol 2017-0 Yes Univer s e 40 mg EC 4-14 ity of tablet 00:00: [place] [facility] pantoprazol 2017-0 Yes Univer s e 40 mg EC 4-14 ity of tablet 00:00: [place] [facility] pantoprazol 2017-0 Yes Univer s e 40 mg EC 4-14 ity of tablet 00:00: [place] [facility] pantoprazol 2017-0 Yes Univer s e 40 mg EC 4-14 ity of tablet 00:00: [place] [facility] pantoprazol 2017-0 Yes Univer s e 40 mg EC 4-14 ity of tablet 00:00: [place] [facility] pantoprazol 2017-0 Yes Univer s e 40 mg EC 4-14 ity of tablet 00:00: [place] [facility] pantoprazol 2017-0 Yes Univer s e 40 mg EC 4-14 ity of tablet 00:00: [place] [facility] pantoprazol 2017-0 Yes Univer s e 40 mg EC 4-14 ity of tablet 00:00: [place] 00 [facility] pantoprazol 2017-0 Yes Univer s e 40 mg EC 4-14 ity of tablet 00:00: [place] [facility] pantoprazol 2017-0 Yes Univer s e 40 mg EC 4-14 ity of tablet 00:00: [place] [facility] pantoprazol 2017-0 Yes Univer s e 40 mg EC 4-14 ity of tablet 00:00: [place] [facility] pantoprazol 2017-0 Yes Univer s e 40 mg EC 4-14 ity of tablet 00:00: [place] [facility] pantoprazol 2017-0 Yes Univer s e 40 mg EC 4-14 ity of tablet 00:00: [place] [facility] pantoprazol 2017-0 Yes Univer s e 40 mg EC 4-14 ity of tablet 00:00: [place] [facility] pantoprazol 2017-0 Yes Univer s e 40 mg EC 4-14 ity of tablet 00:00: [place] [facility] pantoprazol 2017-0 Yes Univer s e 40 mg EC 4-14 ity of tablet 00:00: [place] [facility] Branch pantoprazol 2017-0 Yes Univer s e 40 mg EC 4-14 ity of tablet 00:00: [address] pantoprazol 2017-0 Yes Univer s e 40 mg EC 4-14 ity of tablet 00:00: [address] pantoprazol 2017-0 Yes Univer s e 40 mg EC 4-14 ity of tablet 00:00: [address] Branch pantoprazol 2017-0 Yes Univer s e 40 mg EC 4-14 ity of tablet 00:00: [place] [facility] Branch pantoprazol 2017-0 Yes Univer s e 40 mg EC 4-14 ity of tablet 00:00: [place] [facility] Branch pantoprazol 2017-0 Yes Univer s e 40 mg EC 4-14 ity of tablet 00:00: [place] [facility] Branch pantoprazol 2017-0 Yes Univer s e 40 mg EC 4-14 ity of tablet 00:00: [place] [facility] pantoprazol 2017-0 Yes Univer s e 40 mg EC 4-14 ity of tablet 00:00: [place] [facility] pantoprazol 2017-0 Yes Univer s e 40 mg EC 4-14 ity of tablet 00:00: [place] 00 Medical Branch pantoprazol 2017-0 Yes Univer s e 40 mg EC 4-14 ity of tablet 00:00: [place] 00 Medical Branch pantoprazol 2017-0 Yes Univer s e 40 mg EC 4-14 ity of tablet 00:00: [place] [facility] pantoprazol 2017-0 Yes Univer s e 40 mg EC 4-14 ity of tablet 00:00: [place] [facility] pantoprazol 2017-0 Yes Univer s e 40 mg EC 4-14 ity of tablet 00:00: [place] [facility] pantoprazol 2017-0 Yes Univer s e 40 mg EC 4-14 ity of tablet 00:00: [place] [facility] Branch pantoprazol 2017-0 Yes Univer s e 40 mg EC 4-14 ity of tablet 00:00: [place] [facility] Branch pantoprazol 2017-0 Yes Univer s e 40 mg EC 4-14 ity of tablet 00:00: [place] [facility] Branch pantoprazol 2017-0 Yes Univer s e 40 mg EC 4-14 ity of tablet 00:00: [place] [facility] Branch pantoprazol 2017-0 Yes Univer s e 40 mg EC 4-14 ity of tablet 00:00: [place] [facility] Branch pantoprazol 2017-0 Yes Univer s e 40 mg EC 4-14 ity of tablet 00:00: [place] [facility] Branch pantoprazol 2017-0 Yes Univer s e 40 mg EC 4-14 ity of tablet 00:00: [place] [facility] pantoprazol 2017-0 Yes Univer s e 40 mg EC 4-14 ity of tablet 00:00: [place] [facility] pantoprazol 2017-0 Yes Univer s e 40 mg EC 4-14 ity of tablet 00:00: [place] [facility] pantoprazol 2017-0 Yes Univer s e 40 mg EC 4-14 ity of tablet 00:00: [place] [facility] Branch pantoprazol 2017-0 Yes Univer s e 40 mg EC 4-14 ity of tablet 00:00: [place] [facility] pantoprazol 2017-0 Yes Univer s e 40 mg EC 4-14 ity of tablet 00:00: [place] [facility] pantoprazol 2017-0 Yes Univer s e 40 mg EC 4-14 ity of tablet 00:00: [place] [facility] Branch pantoprazol 2017-0 Yes Univer s e 40 mg EC 4-14 ity of tablet 00:00: [place] 00 [facility] pantoprazol 2017-0 Yes Univer s e 40 mg EC 4-14 ity of tablet 00:00: [place] [facility] pantoprazol 2017-0 Yes Univer s e 40 mg EC 4-14 ity of tablet 00:00: [place] [facility] pantoprazol 2017-0 Yes Univer s e 40 mg EC 4-14 ity of tablet 00:00: [place] [facility] pantoprazol 2017-0 Yes Univer s e 40 mg EC 4-14 ity of tablet 00:00: [place] [facility] pantoprazol 2017-0 Yes Univer s e 40 mg EC 4-14 ity of tablet 00:00: [place] [facility] pantoprazol 2017-0 Yes Univer s e 40 mg EC 4-14 ity of tablet 00:00: [address] pantoprazol 2017-0 Yes Univer s e 40 mg EC 4-14 ity of tablet 00:00: [place] [facility] pantoprazol 2017-0 Yes Univer s e 40 mg EC 4-14 ity of tablet 00:00: [address] pantoprazol 2017-0 Yes Univer s e 40 mg EC 4-14 ity of tablet 00:00: [place] [facility] pantoprazol 2017-0 Yes Univer s e 40 mg EC 4-14 ity of tablet 00:00: [place] [facility] pantoprazol 2017-0 Yes Univer s e 40 mg EC 4-14 ity of tablet 00:00: [place] [facility] pantoprazol 2017-0 Yes Univer s e 40 mg EC 4-14 ity of tablet 00:00: [place] [facility] pantoprazol 2017-0 Yes Univer s e 40 mg EC 4-14 ity of tablet 00:00: [place] [facility] pantoprazol 2017-0 Yes Univer s e 40 mg EC 4-14 ity of tablet 00:00: [place] [facility] pantoprazol 2017-0 Yes Univer s e 40 mg EC 4-14 ity of tablet 00:00: [place] [facility] [facility] pantoprazol 2017-0 Yes Univer s e 40 mg EC 4-14 ity of tablet 00:00: [place] [facility] pantoprazol 2017-0 Yes Univer s e 40 mg EC 4-14 ity of tablet 00:00: [place] [facility] pantoprazol 2017-0 Yes Univer s e 40 mg EC 4-14 ity of tablet 00:00: [place] [facility] pantoprazol 2017-0 Yes Univer s e 40 mg EC 4-14 ity of tablet 00:00: [place] [facility] pantoprazol 2017-0 Yes Univer s e 40 mg EC 4-14 ity of tablet 00:00: [place] [facility] pantoprazol 2017-0 Yes Univer s e 40 mg EC 4-14 ity of tablet 00:00: [place] [facility] pantoprazol 2017-0 Yes Univer s e 40 mg EC 4-14 ity of tablet 00:00: [place] [facility] pantoprazol 2017-0 Yes Univer s e 40 mg EC 4-14 ity of tablet 00:00: [place] [facility] pantoprazol 2017-0 Yes Univer s e 40 mg EC 4-14 ity of tablet 00:00: [address] pantoprazol 2017-0 Yes Univer s e 40 mg EC 4-14 ity of tablet 00:00: [place] [facility] pantoprazol 2017-0 Yes Univer s e 40 mg EC 4-14 ity of tablet 00:00: [address] pantoprazol 2017-0 Yes Univer s e 40 mg EC 4-14 ity of tablet 00:00: [place] [facility] pantoprazol 2017-0 Yes Univer s e 40 mg EC 4-14 ity of tablet 00:00: [place] [facility] pantoprazol 2017-0 Yes Univer s e 40 mg EC 4-14 ity of tablet 00:00: [place] [facility] pantoprazol 2017-0 Yes Univer s e 40 mg EC 4-14 ity of tablet 00:00: [place] [facility] pantoprazol 2017-0 Yes Univer s e 40 mg EC 4-14 ity of tablet 00:00: [place] [facility] pantoprazol 2017-0 Yes Univer s e 40 mg EC 4-14 ity of tablet 00:00: [place] [facility] pantoprazol 2017-0 Yes Univer s e 40 mg EC 4-14 ity of tablet 00:00: [place] [facility] pantoprazol 2017-0 Yes Univer [...] mg EC 4-14 ity of tablet 00:00: [place] [facility] pantoprazol 2017-0 Yes Univer s e 40 mg EC 4-14 ity of tablet 00:00: [place] [facility] pantoprazol 2017-0 Yes Univer s e 40 mg EC 4-14 ity of tablet 00:00: [place] [facility] pantoprazol 2017-0 Yes Univer s e 40 mg EC 4-14 ity of tablet 00:00: [place] [facility] pantoprazol 2017-0 Yes Univer [...] Immunizations Ordered Filled Immunization Date Status Comments [facility] e Immunization Name Name Influenza Virus [...] 18:09:00 134 mm[Hg] Univer sity of pressure [facility] Diastolic blood 2022-08-28 18:09:00 72 mm[Hg] Unive rsity of pressure [facility] Heart rate 2022-08-28 18:09:00 71 /min [facility] Respiratory rate 2022-08-28 18:09:00 19 /min [facility] height 2022-08-28 18:09:00 160 cm [facility] Body weight 2022-08-28 18:09:00 46.63 kg [facility] BMI 2022-08-28 18:09:00 18.21 kg/m2 [facility] Oxygen saturation in 2022-08-28 18:09:00 98 /min [facility] Arterial blood by [facility] Pulse oximetry Branch Systolic blood 2022-06-25 15:38:00 137 mm[Hg] Univer sity of pressure [facility] Diastolic blood 2022-06-25 15:38:00 46 mm[Hg] Unive rsity of pressure [facility] Heart rate 2022-06-25 15:38:00 56 /min Universi ty of [facility] Body temperature 2022-06-25 15:38:00 36.11 Allie Univ ersity of [facility] Respiratory rate 2022-06-25 15:38:00 17 /min Univ ersity of [facility] Body height 2022-06-25 15:38:00 160 cm Universi ty of [facility] Body weight 2022-06-25 15:38:00 46.494 kg Universi ty of [facility] BMI 2022-06-25 15:38:00 18.16 kg/m2 Universi ty of [facility] Systolic blood 2022-06-12 13:39:00 124 mm[Hg] Univer sity of pressure [facility] Diastolic blood 2022-06-12 13:39:00 56 mm[Hg] Unive rsity of pressure [facility] Heart rate 2022-06-12 13:39:00 74 /min Universi ty of [facility] Body temperature 2022-06-12 13:39:00 36.67 Allie Univ ersity of [facility] Respiratory rate 2022-06-12 13:39:00 18 /min Univ ersity of [facility] Oxygen saturation in 2022-06-12 13:39:00 100 /min University of Arterial blood by [facility] Pulse oximetry Branch Body weight 2022-06-12 10:12:00 46.494 kg Universi ty of [facility] BMI 2022-06-12 10:12:00 18.16 kg/m2 Universi ty of [facility] Body height 2022-06-06 23:33:00 160 cm [facility] [place] [facility] HEIGHT 2022-05-18 09:00:00 160 cm WEIGHT 2022-05-18 09:00:00 47.9 kg HEIGHT 2022-05-18 09:00:00 160 cm WEIGHT 2022-05-18 09:00:00 47.9 kg Systolic blood 2022-05-10 17:56:00 153 mm[Hg] Univer sity of pressure [facility] Diastolic blood 2022-05-10 17:56:00 47 mm[Hg] Unive rsity of pressure [place] [facility] Heart rate 2022-05-10 17:54:00 68 /min [facility]i ty [facility] [place] [facility] Respiratory rate 2022-05-10 17:54:00 20 /min Univ ersity of [place] [facility] Body height 2022-05-10 17:54:00 160 cm [facility] [place] [facility] Body weight 2022-05-10 17:54:00 46.085 kg [facility]i [facility] [place] [facility] BMI 2022-05-10 17:54:00 18.00 kg/m2 [facility] [place] [facility] Oxygen saturation in 2022-05-10 17:54:00 99 /min University of Arterial blood by [facility] Pulse oximetry Branch Systolic blood 2022-02-28 19:10:00 161 mm[Hg] Univer sity of pressure [place] [facility] Diastolic blood 2022-02-28 19:10:00 59 mm[Hg] Unive rsity of pressure [place] [facility] Heart rate 2022-02-28 19:10:00 50 /min [facility]i ty [facility] [place] [facility] Oxygen saturation in 2022-02-28 19:10:00 100 /min University of Arterial blood by [facility] Pulse oximetry Branch Body temperature 2022-02-28 19:08:00 36.11 Allie Univ ersity of [place] [facility] Respiratory rate 2022-02-28 19:08:00 16 /min Univ ers[facility] [place] [facility] Body weight 2022-02-28 19:08:00 49.125 kg [facility] [place] [facility] BMI 2022-02-28 19:08:00 19.18 kg/m2 [facility] [place] [facility] Systolic blood 2022-06-25 15:38:00 137 mm[Hg] Univer sity of pressure [place] [facility] Diastolic blood 2022-06-25 15:38:00 46 mm[Hg] Unive rsity of pressure [place] [facility] Heart rate 2022-06-25 15:38:00 56 /min [facility] [place] [facility] Body temperature 2022-06-25 15:38:00 36.11 Allie Univ [facility] [place] [facility] Respiratory rate 2022-06-25 15:38:00 17 /min Univ ers[facility] [place] [facility] Body height 2022-06-25 15:38:00 160 cm Universi ty [facility] Body weight 2022-06-25 15:38:00 46.494 kg Universi ty [facility] BMI 2022-06-25 15:38:00 18.16 kg/m2 Universi ty [facility] Systolic blood 2022-06-12 13:39:00 124 mm[Hg] Univer sity of pressure [facility] Diastolic blood 2022-06-12 13:39:00 56 mm[Hg] Unive rsity of [facility] Heart rate 2022-06-12 13:39:00 74 /min Universi ty of [facility] Body temperature 2022-06-12 13:39:00 36.67 Allie [facility] 2022-06-12 13:39:00 18 /min [facility] Oxygen saturation in 2022-06-12 13:39:00 100 /min University Arterial blood by [facility] Pulse oximetry Branch Body weight 2022-06-12 10:12:00 46.494 kg Universi ty [facility] BMI 2022-06-12 10:12:00 18.16 kg/m2 Universi ty [facility] Body height 2022-06-06 23:33:00 160 cm Universi ty [facility] Systolic blood 2022-05-27 16:06:00 109 mm[Hg] [facility] Diastolic blood 2022-05-27 16:06:00 53 mm[Hg] [facility] S [facility] Heart rate 2022-05-27 16:03:00 69 /min [facility] Body temperature 2022-05-27 16:03:00 37.11 Allie [facility] Respiratory rate 2022-05-27 16:03:00 17 /min [facility] Oxygen saturation in 2022-05-27 16:03:00 96 /min [facility] Arterial blood by Medical nter Pulse oximetry Systolic blood 2022-05-24 07:00:00 117 mm[Hg] [facility] St [facility] Diastolic blood 2022-05-24 07:00:00 73 mm[Hg] [facility] S t [facility] Heart rate 2022-05-24 07:00:00 81 /min [facility] Body temperature 2022-05-24 07:00:00 36.67 Allie [facility] Respiratory rate 2022-05-24 07:00:00 15 /min [facility] Oxygen saturation in 2022-05-24 07:00:00 96 /min [facility] Arterial blood by Medical Ce nter Pulse oximetry Systolic blood 2022-05-22 08:00:00 126 mm[Hg] [facility] Diastolic blood 2022-05-22 08:00:00 62 mm[Hg] [facility] Heart rate 2022-05-22 08:00:00 63 /min [facility] Respiratory rate 2022-05-22 08:00:00 24 /min [facility] Oxygen saturation in 2022-05-22 08:00:00 98 /min [facility] Arterial blood by Medical Ce nter Pulse oximetry Body temperature 2022-05-21 16:00:00 36.67 Allie [facility] Systolic blood 2022-05-21 08:23:00 127 mm[Hg] [facility] Diastolic blood 2022-05-21 08:23:00 65 mm[Hg] [facility] Heart rate 2022-05-21 07:30:00 76 /min [facility] Respiratory rate 2022-05-21 07:30:00 17 /min [facility] Oxygen saturation in 2022-05-21 07:30:00 98 /min [facility] Arterial blood by Medical Ce nter Pulse oximetry Body temperature 2022-05-21 00:00:00 36.17 Allie [facility] Body height 2022-05-18 09:00:00 160 cm [facility] Body weight 2022-05-18 09:00:00 47.9 kg [facility] BMI 2022-05-18 09:00:00 18.71 kg/m2 [facility] Procedures Procedure Date / Time Performing Clinician Source Performed MEDICAL RELEASE/CLEARANCE 2022-10-04 05:01:00 Doctor Unassigned, No [facility] FORMS Name Medical Branch MEDICAL RELEASE/CLEARANCE 2022-08-23 05:01:00 Doctor Unassigned, No [facility] FORMS [facility] XR HIPS 2 VW RIGHT 2022-08-01 15:29:05 Joseph Cortes [facility] CONSENT/REFUSAL FOR 2022-08-01 15:11:45 Doctor Unassigned, No [facility] [place] [facility] ASSIGNMENT OF BENEFITS 2022-08-01 15:11:28 Doctor Unassigned, No [facility] PROTHROMBIN TIME / INR 2022-07-10 14:51:00 [place] [facility] CONSENT/REFUSAL FOR 2022-07-10 14:37:14 Doctor Unassigned, No [facility] [place] [facility] CONSENT/REFUSAL FOR 2022-07-10 14:37:14 [facility] ASSIGNMENT OF BENEFITS 2022-07-10 14:36:56 Doctor Unassigned, No [facility] ASSIGNMENT OF BENEFITS 2022-07-10 14:36:56 Doctor Unassigned, No [facility] PROTHROMBIN TIME / INR 2022-06-25 15:22:00 [place] [facility] PROTHROMBIN TIME / INR 2022-06-12 08:34:00 [facility] 2022-06-12 08:34:00 Leslie Espitia [facility] BASIC METABOLIC PANEL 2022-06-12 08:34:00 Leslie Espitia [facility] (NA, K, CL, CO2, GLUCOSE, Medica l Branch BUN, CREATININE, CA) CBC WITH DIFF 2022-06-12 08:34:00 Leslie Espitia [facility] ACTIVATED PARTIAL 2022-06-12 08:34:00 Shawanda Lagos [facility] 2022-06-12 08:34:00 Leslie Espitia [facility] BASIC METABOLIC PANEL 2022-06-12 08:34:00 Leslie Espitia [facility] (NA, K, CL, CO2, GLUCOSE, Medica l Branch BUN, CREATININE, CA) CBC WITH DIFF 2022-06-12 08:34:00 Leslie Espitia [facility] PROTHROMBIN TIME / INR 2022-06-12 08:34:00 [facility] 2022-06-12 08:34:00 Demond [facility] ACTIVATED PARTIAL 2022-06-12 02:29:00 Demond [facility] ACTIVATED PARTIAL 2022-06-12 02:29:00 Demond [facility] EXTRA TUBE LT. GREEN 2022-06-12 00:00:00 Mariia Cardona [facility] EXTRA TUBE LT. GREEN 2022-06-12 00:00:00 [facility] 2022-06-11 19:48:00 Leslie Espitia [facility] BLOOD CULTURE SCREEN 2022-06-11 19:48:00 Leslie Espitia [facility] BLOOD CULTURE SCREEN 2022-06-11 19:42:00 Leslie Espitia [facility] BLOOD CULTURE SCREEN 2022-06-11 19:42:00 Leslie Espitia [facility] TRANSESOPHAGEAL ECHO 2022-06-11 15:58:00 Siddharth Chicas [facility] ([facility]) COMPLETE W/ DOPPLER Nando Rios Medica l Branch AND COLOR TRANSESOPHAGEAL ECHO 2022-06-11 15:58:00 Juan Francisco Siddharth [facility] ([place]) COMPLETE W/ DOPPLER [facility] AND COLOR ACTIVATED PARTIAL 2022-06-11 14:52:00 Demond [facility] ACTIVATED PARTIAL 2022-06-11 14:52:00 Demond [facility] PROTHROMBIN TIME / INR 2022-06-11 08:57:00 Mariia Cardona Un [facility] BASIC METABOLIC PANEL 2022-06-11 08:57:00 Les Ortega [facility] (NA, K, CL, CO2, GLUCOSE, Medica l Branch BUN, CREATININE, CA) MAGNESIUM 2022-06-11 08:57:00 Les Ortega [facility] ACTIVATED PARTIAL 2022-06-11 08:57:00 Demond [facility] MAGNESIUM 2022-06-11 08:57:00 Les Ortega [facility] BASIC METABOLIC PANEL 2022-06-11 08:57:00 Les Ortega [facility] (NA, K, CL, CO2, GLUCOSE, Medica l Branch BUN, CREATININE, CA) PROTHROMBIN TIME / INR 2022-06-11 08:57:00 Mariia Cardona [facility] ACTIVATED PARTIAL 2022-06-11 08:57:00 Demond [facility] HB ECG ROUTINE & RHYTHM 2022-06-11 07:47:48 [facility] ACTIVATED PARTIAL 2022-06-10 20:19:00 Demond [facility] ACTIVATED PARTIAL 2022-06-10 20:19:00 Demond [facility] HB ECG ROUTINE & RHYTHM 2022-06-10 16:35:44 Jordan [facility] HB ECG ROUTINE & RHYTHM 2022-06-10 16:35:44 Jordan [facility] MAGNESIUM 2022-06-10 08:20:00 Leslie Espitia [facility] BASIC METABOLIC PANEL 2022-06-10 08:20:00 Leslie Espitia [facility] (NA, K, CL, CO2, GLUCOSE, Medica l Branch BUN, CREATININE, CA) CBC WITH DIFF 2022-06-10 08:20:00 Leslie Espitia [facility] PROTHROMBIN TIME / INR 2022-06-10 08:20:00 Leslie Espitia [facility] ACTIVATED PARTIAL 2022-06-10 08:20:00 Demond [facility] MAGNESIUM 2022-06-10 08:20:00 Omkar eda [facility] BASIC METABOLIC PANEL 2022-06-10 08:20:00 Omkar eda [facility] (NA, K, CL, CO2, GLUCOSE, Medica l Branch BUN, CREATININE, CA) CBC WITH DIFF 2022-06-10 08:20:00 [facility] INR 2022-06-10 08:20:00 Leslie Espitia [facility] ACTIVATED PARTIAL 2022-06-10 08:20:00 Demond [facility] EKG-12 LEAD 2022-06-10 04:08:[address] [facility] ACTIVATED PARTIAL 2022-06-09 23:33:00 Demond, [facility] ACTIVATED PARTIAL 2022-06-09 23:33:00 Demond, [facility] ACTIVATED PARTIAL 2022-06-09 22:22:00 Demond, [facility] ACTIVATED PARTIAL 2022-06-09 22:22:00 Demond, [facility] BASIC METABOLIC PANEL 2022-06-09 20:19:00 Demond [facility] (NA, K, CL, CO2, GLUCOSE, Medica l Branch BUN, CREATININE, CA) BASIC METABOLIC PANEL 2022-06-09 20:19:00 Demond [facility] (NA, K, CL, CO2, GLUCOSE, Medica l Branch BUN, CREATININE, CA) HB ECG ROUTINE & RHYTHM 2022-06-09 16:45:[address] [facility] HB ECG ROUTINE & RHYTHM 2022-06-09 16:45:[address] [facility] MAGNESIUM 2022-06-09 10:03:00 [facility]IC PANEL 2022-06-09 10:03:00 Leslie Espitia [facility] (NA, K, CL, CO2, GLUCOSE, Medica l Branch BUN, CREATININE, CA) CBC WITH DIFF 2022-06-09 10:03:00 Leslie Espitia [facility] PROTHROMBIN TIME / INR 2022-06-09 10:03:00 Taylor HemMariia sims [facility] MAGNESIUM 2022-06-09 10:03:00 Omkar eda [facility] BASIC METABOLIC PANEL 2022-06-09 10:03:00 Leslie Espitia [facility] (NA, K, CL, CO2, GLUCOSE, Medica l Branch BUN, CREATININE, CA) CBC WITH DIFF 2022-06-09 10:03:00 Leslie Espitia [facility] PROTHROMBIN TIME / INR 2022-06-09 10:03:00 Mariia Cardona [facility] EKG-12 LEAD 2022-06-09 04:12:20 Taylor HemMariia sims [facility] EKG-12 LEAD 2022-06-09 04:12:20 Taylor Hemadriana [facility] PROTHROMBIN TIME / INR 2022-06-08 17:35:00 Leslie Espitia [facility] PROTHROMBIN TIME / INR 2022-06-08 17:35:00 Leslie Espitia [facility] EKG-12 LEAD 2022-06-08 17:18:35 Taylor Hemadriana [facility] EKG-12 LEAD 2022-06-08 17:18:35 Taylor HemMariia sims [facility] MAGNESIUM 2022-06-08 10:46:00 Leslie Espitia [facility] BASIC METABOLIC PANEL 2022-06-08 10:46:00 Leslie Espitia [facility] (NA, K, CL, CO2, GLUCOSE, Medica l Branch BUN, CREATININE, CA) CBC WITH DIFF 2022-06-08 10:46:00 Leslie Espitia [facility] MAGNESIUM 2022-06-08 10:46:00 Leslie Espitia [facility] BASIC METABOLIC PANEL 2022-06-08 10:46:00 Leslie Espitia [facility] (NA, K, CL, CO2, GLUCOSE, Medica l Branch BUN, CREATININE, CA) CBC WITH DIFF 2022-06-08 10:46:00 Omkar eda [facility] EKG-12 LEAD 2022-06-08 03:55:51 Taylor Connell [facility] EKG-12 LEAD 2022-06-08 03:55:51 Taylor Connell [facility] TRANSTHORACIC ECHO (TTE) 2022-06-07 17:56:10 Taylor Connell [facility] TRANSTHORACIC ECHO (TTE) 2022-06-07 17:56:10 Taylor Connell [facility] HB ECG ROUTINE & RHYTHM 2022-06-07 15:36:46 Leslie Espitia [facility] HB ECG ROUTINE & RHYTHM 2022-06-07 15:36:46 Leslie Espitia [facility] URINE DRUG (LCMSMS) - 2022-06-07 15:01:00 Opal Yen [facility] COMPREHENSIVE DRUG [facility] Medical Branch URINE DRUG (LCMSMS) - 2022-06-07 15:01:00 Opal Yen [facility] COMPREHENSIVE DRUG PANEL Medical Branch CBC WITH DIFF 2022-06-07 10:51:[address] [facility] BASIC METABOLIC PANEL 2022-06-07 10:51:00 Opal Yen [facility] (NA, K, CL, CO2, GLUCOSE, Medica l Branch BUN, CREATININE, CA) IRON PANEL 2022-06-07 10:51:[address] [facility] BASIC METABOLIC PANEL 2022-06-07 10:51:00 Opal Yen [facility] (NA, K, CL, CO2, GLUCOSE, Medica l Branch BUN, CREATININE, CA) IRON PANEL 2022-06-07 10:51:[address] [facility] CBC WITH DIFF 2022-06-07 10:51:[address] [facility] BASIC METABOLIC PANEL 2022-06-07 02:29:00 Opal Yen [facility] (NA, K, CL, CO2, GLUCOSE, Medica l Branch BUN, CREATININE, CA) HEPATIC FUNCTION PANEL 2022-06-07 02:29:00 Opal Yen [facility] ([id number]) (ALB,T.PRO,BILI Medical Branch T,BU/BC,ALT,AST,ALK PHOS) MAGNESIUM 2022-06-07 02:29:[address] [facility] FOLATE 2022-06-07 02:29:[address] [facility] MAGNESIUM 2022-06-07 02:29:[address] [facility] FOLATE 2022-06-07 02:29:[address] [facility] HEPATIC FUNCTION PANEL 2022-06-07 02:29:00 Opal Yen [facility] ([id number]) (ALB,T.PRO,BILI Medical Branch T,BU/BC,ALT,AST,ALK PHOS) BASIC METABOLIC PANEL 2022-06-07 02:29:00 Opal Yen [facility] (NA, K, CL, CO2, GLUCOSE, Medica l Branch BUN, CREATININE, CA) HB ECG ROUTINE & RHYTHM 2022-06-07 00:50:00 Opal Yen [facility] PROTHROMBIN TIME / INR 2022-06-07 00:33:00 Opal Yen [facility] ACTIVATED PARTIAL 2022-06-07 00:33:00 Opal Yen [facility] WITH DIFF 2022-06-07 00:33:[address] [facility] FERRITIN SERUM 2022-06-07 00:33:[address] [facility] VITAMIN B12, LEVEL 2022-06-07 00:33:00 FarshadOpal [facility] FERRITIN SERUM 2022-06-07 00:33:[address] [facility] VITAMIN B12, LEVEL 2022-06-07 00:33:00 FarshadOpal [facility] CBC WITH DIFF 2022-06-07 00:33:[address] [facility] PROTHROMBIN TIME / INR 2022-06-07 00:33:00 [facility] ACTIVATED PARTIAL 2022-06-07 00:33:00 FarshadOpal [facility] PR[facility] / INR 2022-06-06 16:10:00 [place] Dan [facility] HOSPITAL ADMISSION 2022-06-06 06:01:00 Doctor Unassigned, No [facility] CBC W/PLT COUNT & AUTO 2022-05-27 04:37:00 Katarina Cabrera [facility] PROTHROMBIN TIME/INR 2022-05-27 04:37:00 [facility] 2022-05-27 04:37:00 Rubén Meaghanmindy Reilly [facility] BASIC METABOLIC PANEL 2022-05-27 04:37:00 Meaghan [place] [facility] CBC W/PLT COUNT & AUTO 2022-05-27 04:37:00 Katarina Cabrera [facility] APTT 2022-05-26 09:28:00 Shanelle Zuniga [facility] CBC W/PLT COUNT & AUTO 2022-05-26 06:27:00 Katarina Cabrera [facility] PROTHROMBIN TIME/INR 2022-05-26 06:27:00 [facility] 2022-05-26 06:27:00 Meaghan [place] [facility] BASIC METABOLIC PANEL 2022-05-26 06:27:00 Meaghan [place] [facility] APTT 2022-05-26 06:27:00 [place], [facility] CBC W/PLT COUNT & AUTO 2022-05-26 06:27:00 Katarina Cabrera [facility] APTT 2022-05-26 00:28:00 Efrain [facility] APTT 2022-05-25 22:25:00 Efrain, [facility] APTT 2022-05-25 14:41:00 Efrain, [facility] APTT 2022-05-25 12:13:00 Efrain [facility] BASIC METABOLIC PANEL 2022-05-25 07:29:00 Jakob [facility] MAGNESIUM 2022-05-25 07:29:00 Jakob, [facility] ECG 12-LEAD 2022-05-25 06:42:59 Robert, [facility] ECG 12-LEAD 2022-05-25 06:42:59 Unknown, Hl7 [facility] APTT 2022-05-25 05:57:00 Efrain [facility] APTT 2022-05-25 04:47:00 Efrain [facility] CBC W/PLT COUNT & AUTO 2022-05-25 03:20:00 RickKatarina hsu [facility] PROTHROMBIN TIME/INR 2022-05-25 03:20:00 Rick [facility] APTT 2022-05-25 03:20:00 Meaghan [place] [facility] CBC W/PLT COUNT & AUTO 2022-05-25 03:20:00 Rick [facility] APTT 2022-05-24 20:02:00 Efrain [facility] APTT 2022-05-24 17:36:00 Efrain, [facility] APTT 2022-05-24 10:31:00 Rick, [facility] APTT 2022-05-24 03:41:00 Efrain, [facility] APTT 2022-05-24 01:14:00 [place], [facility] CBC W/PLT COUNT & AUTO 2022-05-24 01:14:00 Rick, [facility] BASIC METABOLIC PANEL 2022-05-24 01:14:00 Rick, [facility] MAGNESIUM 2022-05-24 01:14:00 Rick, [facility] PHOSPHORUS 2022-05-24 01:14:00 Rick, [facility] PROTHROMBIN TIME/INR 2022-05-24 01:14:00 Rick, [facility] CBC W/PLT COUNT & AUTO 2022-05-24 01:14:00 Rick, [facility] APTT 2022-05-23 18:18:00 Pagan [facility] APTT 2022-05-23 16:11:00 Pagan [facility] APTT 2022-05-23 08:24:00 Pagan [facility] CBC W/PLT COUNT & AUTO 2022-05-23 04:23:00 Rick, [facility] BASIC METABOLIC PANEL 2022-05-23 04:23:00 Rick, [facility] MAGNESIUM 2022-05-23 04:23:00 Rick, [facility] PHOSPHORUS 2022-05-23 04:23:00 Rick, [facility] PROTHROMBIN TIME/INR 2022-05-23 04:23:00 Rick, [facility] APTT 2022-05-23 04:23:00 Hermosa, [facility] CBC W/PLT COUNT & AUTO 2022-05-23 04:23:00 Rick, [facility] APTT 2022-05-22 20:49:00 Hermosa [facility] HEMOGLOBIN AND HEMATOCRIT 2022-05-22 17:54:00 Rick, [facility] APTT 2022-05-22 13:59:00 Efrain [facility] CBC W/PLT COUNT & AUTO 2022-05-22 02:47:00 Rick, [facility] BASIC METABOLIC PANEL 2022-05-22 02:47:00 Rick, [facility] MAGNESIUM 2022-05-22 02:47:00 Rick, [facility] PHOSPHORUS 2022-05-22 02:47:00 Rick, [facility] PROTHROMBIN TIME/INR 2022-05-22 02:47:00 Rick, [facility] APTT 2022-05-22 02:47:00 [facility] W/[facility]T COUNT & AUTO 2022-05-22 02:47:00 Rick, [facility] PREPARE RBC 2022-05-21 23:54:00 Vinayak Cook [facility] HEMOGLOBIN AND HEMATOCRIT 2022-05-21 21:35:00 Rick, [facility] PROTHROMBIN TIME/INR 2022-05-21 14:45:00 Rick, [facility] APTT 2022-05-21 14:45:00 Efrain [facility] 2D ECHO W/ DOPPLER 2022-05-21 13:06:46 Vitaly Flores [facility] (CW/PW/COLOR) [place] HEMOGLOBIN AND HEMATOCRIT 2022-05-21 12:50:00 Rick, [facility] TSH/FREE T4 IF INDICATED 2022-05-21 12:50:00 Efrain [facility] APTT 2022-05-21 08:34:00 Efrain [facility] CBC W/PLT COUNT & AUTO 2022-05-21 05:00:00 RickKatarina hsu [facility] BASIC METABOLIC PANEL 2022-05-21 05:00:00 [facility]-05-21 05:00:00 [facility] PHOSPHORUS 2022-05-21 05:00:00 [facility] CBC W/PLT COUNT & AUTO 2022-05-21 05:00:00 Rick, [facility] PROTHROMBIN TIME/INR 2022-05-21 01:15:00 Rick, [facility] APTT 2022-05-21 01:15:00 Efrain [facility] HEMOGLOBIN AND HEMATOCRIT 2022-05-20 20:25:00 Katarina Cabrera [facility] PROTHROMBIN TIME/INR 2022-05-20 17:07:00 Rick [facility] APTT 2022-05-20 17:07:00 [facility] HEMOGLOBIN AND HEMATOCRIT 2022-05-20 13:03:00 Katarina Cabrera [facility] APTT 2022-05-20 13:02:00 [facility] TRANSFUSE LEUKO-REDUCED 2022-05-20 08:38:00 Damir Joyce [facility] RED BLOOD CELLS Center PREPARE RBC 2022-05-20 08:19:00 Vinayak Cook [facility] APTT 2022-05-20 05:03:00 Efrain [facility] CBC W/PLT COUNT & AUTO 2022-05-20 03:36:00 [facility] MET[facility]OLIC PANEL 2022-05-20 03:36:00 [facility] MAGNESIUM 2022-05-20 03:36:00 Rick, [facility] PHOSPHORUS 2022-05-20 03:36:00 Rick, [facility] PROTHROMBIN TIME/INR 2022-05-20 03:36:00 Rick, [facility] CBC W/PLT COUNT & AUTO 2022-05-20 03:36:00 Rick, [facility] APTT 2022-05-19 22:59:00 [facility] HEMATOCRIT 2022-05-19 21:17:00 Rick, [facility] PROTHROMBIN TIME/INR 2022-05-19 17:05:00 Rick, [facility] APTT 2022-05-19 17:05:00 [facility] HEMOGLOBIN AND HEMATOCRIT 2022-05-19 12:11:00 Rick, [facility] PROTHROMBIN TIME/INR 2022-05-19 12:11:00 [facility]-LEAD 2022-05-19 11:39:33 Vitaly Flores [facility] ECG 12-LEAD 2022-05-19 11:39:33 Unknown, Hl7 [facility] POCT-GLUCOSE METER 2022-05-19 05:28:00 Shadi Church [facility] CBC W/PLT COUNT & AUTO 2022-05-19 03:08:00 Rick, [facility] CBC W/PLT COUNT & AUTO 2022-05-19 03:08:00 Rick, [facility] BASIC METABOLIC PANEL 2022-05-19 03:07:00 Rick, [facility] MAGNESIUM 2022-05-19 03:07:00 Rick, [facility] PHOSPHORUS 2022-05-19 03:07:00 Rick, [facility] PROTHROMBIN TIME/INR 2022-05-19 03:07:00 Rick, [facility] POCT-GLUCOSE METER 2022-05-18 23:02:00 Adhdanii [facility] ECG 12-LEAD 2022-05-18 21:08:01 [facility] ECG 12-LEAD 2022-05-18 21:08:01 Unknown, Hl7 Doctor [facility] BUN AND CREATININE 2022-05-18 20:38:00 [facility] W/RATIO [facility][1] POTASSIUM 2022-05-18 20:38:00 [facility] MAGNESIUM 2022-05-18 20:38:00 [facility] HEMOGLOBIN AND HEMATOCRIT 2022-05-18 20:01:00 Rick [facility] POCT-GLUCOSE METER 2022-05-18 18:56:00 Adhdanii [facility] CTA ABDOMEN & PELVIS 2022-05-18 17:42:00 Rick [facility] URINALYSIS W/ REFLEX 2022-05-18 15:23:00 Rick, [facility] URINE CULTURE [place]y PROTHROMBIN TIME/INR 2022-05-18 15:23:00 [facility] HIGH SENSITIVITY TROPONIN 2022-05-18 15:23:00 [facility] 2022-05-18 15:23:00 Rick [facility] CBC (HEMOGRAM ONLY) 2022-05-18 13:05:00 Rick, [facility] CALCIUM, IONIZED 2022-05-18 13:05:00 Rick, [facility] POCT-GLUCOSE METER 2022-05-18 12:55:00 Sean [facility] ABORH, MANUAL 2022-05-18 11:55:00 Floridalma Monsalve [facility] TYPE AND SCREEN, 2022-05-18 11:02:00 Rick, [facility] COMPREHENSIVE METABOLIC 2022-05-18 11:01:00 Rick, [facility] PANEL Center MAGNESIUM 2022-05-18 11:01:00 Rick, [facility] PHOSPHORUS 2022-05-18 11:01:00 Rick, [facility] LACTIC ACID, VENOUS 2022-05-18 11:01:00 Irck, [facility] LIPASE 2022-05-18 11:01:00 Rick, [facility] B-TYPE NATRIURETIC FACTOR 2022-05-18 11:01:00 Rick, [facility] (BNP) Chunky PT/APTT 2022-05-18 11:00:00 Rick, [facility] FIBRINOGEN 2022-05-18 11:00:00 Rick, [facility] ECG 12-LEAD 2022-05-18 10:34:14 Rick, [facility] ECG 12-LEAD 2022-05-18 10:34:14 Unknown, Hl7 [facility] HB ECG ROUTINE & RHYTHM 2022-05-10 17:51:31 Wayne Rabago [facility] PROTHROMBIN TIME / INR 2022-05-09 16:24:00 [place] [facility] CONSENT/REFUSAL FOR 2022-05-09 16:13:00 Doctor Unassigned, No [facility] Name Medical Branch ASSIGNMENT OF BENEFITS 2022-05-09 16:12:36 Doctor Unassigned, No [facility] Medical Branch ASSIGNMENT OF BENEFITS 2022-05-09 16:12:36 Doctor Unassigned, No [facility] PROTHROMBIN TIME / INR 2022-04-11 15:46:00 [place] [facility] CONSENT/REFUSAL FOR 2022-04-11 15:36:05 Doctor Unassigned, [facility] Name Medical Branch ASSIGNMENT OF BENEFITS 2022-04-11 15:35:52 Doctor Unassigned, No [facility] Medical Branch ASSIGNMENT OF BENEFITS 2022-04-11 15:35:52 Doctor Unassigned, No [facility] MEDICATION CORRESPONDENCE 2022-03-18 06:01:00 Doctor Unassigned, No [facility] PROTHROMBIN TIME / INR 2022-03-14 15:29:00 SyJamaica Ciara [facility] CONSENT/REFUSAL FOR 2022-03-14 15:15:12 Doctor Unassigned, No [facility] [place] ASSIGNMENT OF BENEFITS 2022-03-14 15:15:00 Doctor Unassigned, No [facility] ASSIGNMENT OF BENEFITS 2022-03-14 15:15:00 Doctor Unassigned, No [facility] CONSENT/REFUSAL FOR 2022-02-28 18:42:52 Doctor Unassigned, No [facility] CONSENT/REFUSAL FOR 2022-02-14 14:32:17 Doctor Unassigned, No [facility] AND [facility] ASSIGNMENT OF BENEFITS 2022-02-14 14:32:04 Doctor Unassigned, No [facility] ASSIGNMENT OF BENEFITS 2021-12-14 17:04:14 Doctor Unassigned, No [facility] HOSPITAL ADMISSION 2021-11-23 05:01:00 Doctor Unassigned, No [facility] Plan of Care Planned Activity [...] [facility] 00:00:00 (Season Ended) [code = [facility] INFLUENZA VACCINE (Season Ended)] Future Scheduled 2022-12-[address] [facility] 00:00:00 (Season Ended) [code = [facility] INFLUENZA VACCINE (Season Ended)] Future [...] - Tdap)] Future Scheduled 1972 DTAP/TDAP/TD VACCINES [facility] 00:00:00 (1 - [...] breast Medical C enter (procedure) [code = 894009958] Future Scheduled 1953 CT Colonography (combo) [facility] 00:00:00 [code = CT Colonography [facility] (combo)] Future Scheduled 1953 Screening for malignant [facility] 00:00:00 neoplasm of colon Medical Ce nter (procedure) [code = 056070423] Future Scheduled 1953 Screening for malignant [facility] Test 00:00:00 neoplasm of colon Medical Ce nter (procedure) [code = 922604468] Future Scheduled 1953 DXA SCAN [code = DXA [facility] 00:00:00 SCAN] [facility] Future Scheduled 1953 Screening for malignant [facility] 00:00:00 neoplasm of colon Medical Ce nter (procedure) [code = 109499163] Future Scheduled 1953 Screening for malignant [facility] 00:00:00 neoplasm of colon Medical Ce nter (procedure) [code = 981350201] Future Scheduled 1953 Sigmoidoscopy [code = [facility]:00 Sigmoidoscopy] [facility] Future Scheduled 1953 Screening for malignant [facility] 00:00:00 neoplasm of breast Medical C enter (procedure) [code = 623541993] Future Scheduled 1953 CT Colonography (combo) [facility] 00:00:00 [code = CT Colonography [facility] (combo)] Future Scheduled 1953 Screening for malignant [facility] 00:00:00 neoplasm of colon Medical Ce nter (procedure) [code = 501221565] Future Scheduled 1953 Screening for malignant [facility] 00:00:00 neoplasm of colon Medical Ce nter (procedure) [code = 403507662] Future Scheduled 1953 DXA SCAN [code = DXA [facility] 00:00:00 SCAN] [facility] Future Scheduled 1953 Screening for malignant [facility] 00:00:00 neoplasm of colon Medical Ce nter (procedure) [code = 250041136] Future Scheduled 1953 Screening for malignant [facility] 00:00:00 neoplasm of colon Medical Ce nter (procedure) [code = 646781408] Future Scheduled 1953 Sigmoidoscopy [code = [facility] 00:00:00 Sigmoidoscopy] [facility] Future Scheduled 1953 Screening for malignant [facility] 00:00:00 neoplasm of breast Medical C enter (procedure) [code = 880308160] Future Scheduled 1953 CT Colonography (combo) [facility] 00:00:00 [code = CT Colonography [facility] (combo)] Future Scheduled 1953 Screening for malignant [facility] 00:00:00 neoplasm of colon Medical Ce nter (procedure) [code = 406579966] Future Scheduled 1953 Screening for malignant [facility] 00:00:00 neoplasm of colon Medical Ce nter (procedure) [code = 336278512] Future Scheduled 1953 DXA SCAN [code = DXA [facility] 00:00:00 SCAN] [facility] Future Scheduled 1953 Screening for malignant [facility] 00:00:00 neoplasm of colon Medical Ce nter (procedure) [code = 847911702] Future Scheduled 1953 Screening for malignant [facility] 00:00:00 neoplasm of colon Medical Ce nter (procedure) [code = 325449406] Future Scheduled 1953 Sigmoidoscopy [code = [facility] Screening for malignant [facility] 00:00:00 neoplasm of breast Medical C enter (procedure) [code = 185985932] Future Scheduled 1953 CT Colonography (combo) [facility] 00:00:00 [code = CT Colonography [facility] (combo)] Future Scheduled 1953 Screening for malignant [facility] 00:00:00 neoplasm of colon Medical Ce nter (procedure) [code = 615288305] Future Scheduled 1953 Screening for malignant [facility] 00:00:00 neoplasm of colon Medical Ce nter (procedure) [code = 214398554] Future Scheduled 1953 DXA SCAN [code = DXA [facility] 00:00:00 SCAN] [facility] Future Scheduled 1953 Screening for malignant [facility] 00:00:00 neoplasm of colon Medical Ce nter (procedure) [code = 440894877] Future Scheduled 1953 Screening for malignant [facility] 00:00:00 neoplasm of colon Medical Ce nter (procedure) [code = 829373479] Future Scheduled 1953 Sigmoidoscopy [code = [facility] 00:00:00 Sigmoidoscopy] [facility] Future Scheduled 1953 Screening for malignant [facility] 00:00:00 neoplasm of breast Medical C enter (procedure) [code = 073157923] Future Scheduled 1953 CT Colonography (combo) [facility] 00:00:00 [code = CT Colonography [facility] (combo)] Future Scheduled 1953 Screening for malignant [facility] 00:00:00 neoplasm of colon Medical Ce nter (procedure) [code = 863560032] Future Scheduled 1953 Screening for malignant [facility] 00:00:00 neoplasm of colon Medical Ce nter (procedure) [code = 301822604] Future Scheduled 1953 DXA SCAN [code = DXA [facility] 00:00:00 SCAN] [facility] Future Scheduled 1953 Screening for malignant [facility] 00:00:00 neoplasm of colon Medical Ce nter (procedure) [code = 965668585] Future Scheduled 1953 Screening for malignant [facility] 00:00:00 neoplasm of colon Medical Ce nter (procedure) [code = 730877347] Future Scheduled 1953 Sigmoidoscopy [code = [facility] 1953 Screening for malignant [facility] 00:00:00 neoplasm of breast Medical C enter (procedure) [code = 006362114] Future Scheduled 1953 CT Colonography (combo) [facility] 00:00:00 [code = CT Colonography [facility] (combo)] Future Scheduled 1953 Screening for malignant [facility] 00:00:00 neoplasm of colon Medical Ce nter (procedure) [code = 209222297] Future Scheduled 1953 Screening for malignant [facility] 00:00:00 neoplasm of colon Medical Ce nter (procedure) [code = 684309498] Future Scheduled 1953 DXA SCAN [code = DXA [facility] 00:00:00 SCAN] [facility] Future Scheduled 1953 Screening for malignant [facility] 00:00:00 neoplasm of colon Medical Ce nter (procedure) [code = 364600278] Future Scheduled 1953 Screening for malignant [facility] 00:00:00 neoplasm of colon Medical Ce nter (procedure) [code = 846563519] Future Scheduled 1953 Sigmoidoscopy [code = [facility] 00:[facility]:00 Sigmoidoscopy] [facility] Cent[facility] r Future Scheduled 1953 Screening for malignant [facility] 00:00:00 neoplasm of breast Medical C enter (procedure) [code = 474258671] Future Scheduled 1953 CT Colonography (combo) [facility] 00:00:00 [code = CT Colonography [facility] (combo)] Future Scheduled 1953 Screening for malignant [facility] 00:00:00 neoplasm of colon Medical Ce nter (procedure) [code = 552695498] Future Scheduled 1953 Screening for malignant [facility] 00:00:00 neoplasm of colon Medical Ce nter (procedure) [code = 241377528] Future Scheduled 1953 DXA SCAN [code = DXA [facility] 00:00:00 SCAN] [facility] Future Scheduled 1953 Screening for malignant [facility] 00:00:00 neoplasm of colon Medical Ce nter (procedure) [code = 348282996] Future Scheduled 1953 Screening for malignant [facility] 00:00:00 neoplasm of colon Medical Ce nter (procedure) [code = 345760089] Future Scheduled 1953 Sigmoidoscopy [code = [facility] 00:00:[facility] Sigmoidoscopy] Medical Cente r Future Scheduled 1953 Screening for malignant [facility] 00:00:00 neoplasm of breast Medical C enter (procedure) [code = 283741837] Future Scheduled 1953 CT Colonography (combo) [facility] 00:00:00 [code = CT Colonography [facility] (combo)] Future Scheduled 1953 Screening for malignant [facility] 00:00:00 neoplasm of colon Medical Ce nter (procedure) [code = 635049728] Future Scheduled 1953 Screening for malignant [facility] 00:00:00 neoplasm of colon Medical Ce nter (procedure) [code = 768569900] Future Scheduled 1953 DXA SCAN [code = DXA [facility] 00:00:00 SCAN] [facility] Future Scheduled 1953 Screening for malignant [facility] 00:00:00 neoplasm of colon Medical Ce nter (procedure) [code = 766473006] Future Scheduled 1953 Screening for malignant [facility] Test 00:00:00 neoplasm of colon Medical Ce nter (procedure) [code = 460055792] Future Scheduled 1953 Sigmoidoscopy [code = [facility] 00:[facility]:00 Sigmoidoscopy] [facility] Cente r Encounters Start End Encounter Admission Attending Care Care Encounter Source Date/Time Date/Time Type Type Clinicians Facility Department ID 2022-09-13 [facility] [id number] Common 13:24:02 DANIEL [id number] [facility] 2022-08-16 Outpatient IBRAHIM, STLMLC STLMLC [id number] Common 12:00:01 DANIEL [id number] [facility] 2022-08-15 Outpatient IBRAHIM, STLMLC STLMLC [id number] Common 15:12:01 DANIEL [id number] [facility] 2022-08-14 Outpatient Dobson, STLMLC STLMLC Common 08:50:01 Saurabh [id number] [facility] 2022-06-05 Inpatient R [facility] [id number] Univers 07:56:00 MARIIA CARDONA [facility] 2021-11-20 Inpatient R REBECA HOLCOMB [facility] [id number] Univers 15:24:28 REBECA HOLCOMB i ty [facility] 2021-09-21 Outpatient Dobson[facility] Common 10:27:03 Saurabh [facility] 2023-02-28 2023-02-28 Outpatient [facility] [id number] Univers 11:20:00 11:20:00 J[place] ity o f [facility] 2022-11-08 2022-11-08 Outpatient R HIMA, [facility] [id number] Univers 08:00:00 08:00:00 WAYNE ity [facility] 2022-10-24 2022-10-24 [facility] [id number] Univers 00:00:00 00:00:00 [place] [id number] ity of [id number] [phone] [address] 2022-10-19 2022-10-19 [facility] [id number] Univers 00:00:00 00:00:00 Qiajuan [place] [id number] [facility] [id number] [phone] Fl dical NAL 059 [facility] 2022-10-04 2022-10-04 Telephone [facility] [id number] Univers 00:00:00 00:00:00 [place] ARANDA [id number] [facility] [id number] [id number] Fl dical NAL 059 [facility] 2022-10-04 2022-10-04 Telephone [facility] [id number] Univers 00:00:00 00:00:00 [place] ARANDA [id number] ity of [id number] [phone] [facility] NAL 9 [facility] 2022-10-04 2022-10-04 Orders Doctor JOHANN [id number] Univers 00:00:00 00:00:00 Only Unassigned, MIKE [id number] ity of [place] [facility] 4.2.7.2.686 Babak as [phone] [address] 2022-09-26 2022-09-27 Outpatient R [facility] [id number] [facility] 10:00:00 13:19:48 [place] ity o f [facility] 2022-09-26 2022-09-26 Office [facility] [id number] Univers 10:00:00 10:10:00 Visit [place] ARANDA [id number] [place] [facility] 4[place] [phone] Fl dical NAL 059 [facility] 2022-09-26 2022-09-26 Orthophotography Technician Andre Osei Lab Main [facility] 1.2.8 40.114 [id number] Univers 09:45:00 10:00:00 Visit Yolande Santacruz [id number] [place] [facility] 4[place] [phone] Fl dical NAL 353 [facility] 2022-09-26 2022-09-26 Telephone [facility] [id number] Univers 00:00:00 00:00:00 [place] ARANDA [id number] it[place] of [place] [phone] [place] [id number] [facility] 2022-08-29 2022-08-29 Telephone [facility] [id number] Univers 00:00:00 00:00:00 [place] ARANDA [id number] [place] [phone] [address] 2022-08-29 2022-08-29 Telephone [facility] [id number] Univers 00:00:00 00:00:00 [place] ARANDA [id number] [place] [id number] [address] 2022-08-28 2022-08-28 Outpatient [facility] [id number] Univers 15:40:00 16:40:51 [place] perez o f [facility] 2022-08-28 2022-08-28 Office [facility] [id number] Univers 15:40:00 16:40:51 Visit [place] KENANJAVIER [id number] ity of [place] [id number] [address] 2022-08-28 2022-08-28 Orthophotography Technician Farnaz, Adc Lab Main [facility] 1.2.8 40.114 [id number] Univers 13:30:00 13:45:00 Visit Sy [place] ARANDA 350.1.13.10 ity of [place] [phone] [facility] 353 [facility] 2022-08-28 2022-08-28 Office [facility] 1.2.840.114 [id number] Univers 13:00:00 13:27:01 Visit [place] GRAYSONJAVIER [id number] ity [facility] 4[place] [phone] [facility] 059 [facility] 2022-08-23 2022-08-23 Orders Doctor JOHANN 1.2.840.114 [id number] Univers 00:00:00 00:00:00 Only Unassigned, MIKE 350.1.13.10 ity of [place] [facility] 4.2.7.2.686 Babak as [phone] [facility] 00[address] [place] 2022-08-22 2022-08-22 Telephone [facility] [id number] Univers 00:00:00 00:00:00 Catrinamerzaheer ROSI 350.1.13.10 ity of [place] [id number] [address] 2022-08-01 2022-08-01 Outpatient R [facility] [id number] Univers 10:11:06 23:59:00 JOSEPH ity of [facility] 2022-08-01 2022-08-01 [facility] 1.2.840.114 [id number] Univers 10:11:06 23:59:00 Encounter Joseph Judi ROSI 350.1.13.10 ity of [place] [id number] [facility] [address] [place] 2022-08-01 2022-08-01 Office [facility] 1.2.840.114 [id number] Univers 15:50:00 16:00:00 Visit Catrinamerzaheer GRAYSONJAVIER 350.1.13.10 ity of [place] [phone] [place] 857039 [facility] 2022-08-01 2022-08-01 Orthophotography Technician Farnaz, Adc Lab Main [facility] 1.2.8 40.114 [id number] Univers 11:00:00 11:15:00 Visit Sy, Qiangjun [place] 350.1.13.10 ity of [place] [id number] Me dical NAL 353 [facility] 2022-08-01 2022-08-01 Telephone [facility] 1.2.546.462 3207 [id number] Univers 00:00:00 00:00:00 [place] ROSI 350.1.13.10 it[place] of [place] [id number] Fl dical NAL 059 [facility] 2022-07-31 2022-07-31 Telephone [facility] 1.2.281.643 [id number] [id number] Univers 00:00:00 00:00:00 [place] GRAYSONTON 350.1.13.10 ity of [place] [id number] Fl dical NAL 059 [facility] 2022-07-10 2022-07-10 Office Sy, 1.2.840.7 [id number] 5817 [facility] 13:00:00 14:24:58 Visit Jamaiac 96990.1.1 ity of 3.104.2.7 [place] .3.711537 Medica l .8 [place] 2022-07-10 2022-07-10 Outpatient R SY, [facility] [id number] [facility] 13:00:00 13:00:00 [place] ity o f [facility] 2022-07-10 2022-07-10 Orthophotography Technician [place] Dan 1.2.840.1 [id number] Univers 10:00:00 10:15:00 Visit Pofredy, Adc Lab Main 57408.1.1 ity of 3.104.2.7 [place] .3.172190 Medica l .8 [place] 2022-07-10 2022-07-10 Orders Doctor 1.2.840.3 [id number] Univers 00:00:00 00:00:00 Only Unassigned, 62873.1.1 ity of [place] 3.104.2.7 [place] .3.099909 Medica l .8 [place] 2022-07-10 2022-07-10 Telephone Sy, 1.2.840.0 [id number] Univers 00:00:00 00:00:00 Qiangjun 01229.1.1 ity of 3.104.2.7 [place] .3.758855 Medica l .8 [place] 2022-06-25 2022-06-25 Outpatient R SY, [facility] [id number] Univers 15:40:00 16:09:43 QIANGJUN ity o f [facility] 2022-06-25 2022-06-25 Office Sy, 1.2.840.4 [id number] Univers 15:40:00 16:09:43 Visit [place] 37478.1.1 ity of 3.104.2.7 [place] .3.836053 Medica l .8 [place] 2022-06-25 2022-06-25 Orthophotography Technician Sy, Rogerjun 1.2.840.1 [id number] Univers 11:45:00 12:00:00 Visit Farnaz, [facility] Lab Main 31054.1.1 ity of 3.104.2.7 [place] .3.719285 Medica l .8 [place] 2022-06-25 2022-06-25 Office Sy, 1.2.840.9 [id number] [id number] Univers 11:20:00 11:20:00 Visit [place] 59518.1.1 ity of 3.104.2.7 [place] .3.461911 Medica l .8 [place] 2022-06-25 2022-06-25 Telephone Sy, 1.2.840.7 [id number] Univers 00:00:00 00:00:00 Qiangjun 40610.1.1 ity of 3.104.2.7 [place] .3.013825 Medica l .8 [place] 2022-06-25 2022-06-25 Travel 1.2.840.1 1.2.627.408 7522 74027 Univers 00:00:00 00:00:00 79725.1.1 350.1.13.10 ity of 3.104.2.7 4.[place].3.698 [place] .3.771456 084.8 Medica l .8 [place] 2022-06-13 2022-06-13 Transition Isaak, 1.2.840.7 [id number] Univers 00:00:00 00:00:00 of Care Jeremy Ricardo 13501.1.1 it y of 3.104.2.7 [place] .3.622008 Medica l .8 [place] 2022-06-06 2022-06-12 Inpatient R TAYLOR VASHTI [facility] [id number] Univers 17:19:00 12:24:00 AL HEMMARIIA SIMS ity of [facility] 2022-06-06 2022-06-12 Hospital Al Hemyari, 1.2.840.0 [id number] Univers 17:19:00 12:24:00 [facility] 67814.1.1 it y of 3.104.2.7 [place] .3.837405 Medica l .8 [place] 2022-06-06 2022-06-06 Orthophotography Technician [place] Dan 1.2.840.1 [id number] Univers 10:15:00 10:30:00 Visit Pob, Adc Lab Main 56340.1.1 ity of [facility] 3.104.2.7 [place] .3.000890 Medica l .8 [place] 2022-06-06 2022-06-06 Telephone Sy, 1.2.840.3 [id number] Univers 00:00:00 00:00:00 [place] 94260.1.1 ity of 3.104.2.7 [place] .3.483144 Medica l .8 [place] 2022-06-06 2022-06-06 Travel 1.2.840.1 1.2.709.583 8448 [id number] Univers 00:00:00 00:00:00 74566.1.1 350.1.13.10 ity of 3.104.2.7 4.2.7.3.698 [place] .3.005410 084.8 Medica l .8 [place] 2022-06-05 2022-06-05 Telephone [facility], 1.2.840.6 [id number] Univers 00:00:00 00:00:00 Wayne 08269.1.1 ity of 3.104.2.7 [place] .3.894585 Medica l .8 Branch 2022-05-29 2022-05-29 Telephone [facility] 1.2.840.5 [id number] Univers 00:00:00 00:00:00 Wayne 20664.1.1 ity of 3.104.2.7 [place] .3.525377 Medica l .8 Branch 2022-05-18 2022-05-[address] [facility] Medical [facility] [id number] [facility] 08:42:00 16:40:00 MEAGHAN 2022-05-18 2022-05-27 Hospital ER Sean Graham [facility] [id number] [facility] 08:42:00 16:40:00 Encounter Vinayak Cook [facility], Purnima Diane, Benjamin [place], Meaghan [facility] 2022-05-19 2022-05-19 Travel [facility] [id number] [facility] 00:00[facility]00 00:00:00 [facility] 2022-05-18 2022-05-18 Orders [facility] [id number] 00:00:00 00:00:00 Only [facility] 2022-05-18 2022-05-18 Telephone Santos [facility] [id number] 00:00:00 00:00:00 Sean cheema [facility] 2022-05-10 2022-05-10 Outpatient R HIMA, [facility] [id number] Univers 11:40:00 12:05:03 WAYNE ity of [facility] 2022-05-10 2022-05-10 Office [facility] 1.2.840.9 [id number] Univers 11:40:00 12:05:03 Visit Wayne 74571.1.1 ity of 3.104.2.7 [place] .3.140034 Medica l .8 [place] 2022-05-10 2022-05-10 Travel 1.2.840.1 1.2.524.234 7511 [id number] Univers 00:00:00 00:00:00 46969.1.1 350.1.13.10 ity of 3.104.2.7 4.2.7.3.698 [place] .3.970036 084.8 Medica l .8 [place] 2022-05-09 2022-05-09 Orthophotography Technician [place] 1.2.840.1 [id number] Univers 10:30:00 10:45:00 Visit Pob, Adc Lab Main 32027.1.1 ity of 3.104.2.7 [place] .3.851552 Medica l .8 [place] 2022-05-09 2022-05-09 [facility] [id number] Univers 10:30:00 10:30:00 [place] perez o f [facility] 2022-05-09 2022-05-09 Orders Doctor 1.2.840.1 [id number] Univers 00:00:00 00:00:00 Only Unassigned, 97196.1.1 ity of [place] 3.104.2.7 [place] .3.729349 Medica l .8 [place] 2022-05-09 2022-05-09 Telephone Sy, 1.2.840.6 [id number] Univers 00:00:00 00:00:00 [place] 70148.1.1 ity of 3.104.2.7 [place] .3.928185 Medica l .8 [place] 2022-04-12 2022-04-12 Outpatient R HIMA [facility] [id number] Univers 11:00:00 11:00:00 WAYNE ity of [facility] 2022-04-12 2022-04-12 [facility]patient [facility] [id number] Univers 11:00:00 11:00:00 WAYNE ity [facility] 2022-04-11 2022-04-11 Orthophotography Technician [place] Dan 1.2.840.1 [id number] Univers 09:45:00 10:00:00 Visit Pob, Adc Lab Main 79169.1.1 ity of 3.104.2.7 [place] .3.189921 Medica l .8 [place] 2022-04-11 2022-04-11 Outpatient R SY, [facility] [id number] Univers 09:45:00 09:45:00 [place] ity o f [facility] 2022-04-11 2022-04-11 Orders Doctor 1.2.840.3 [id number] Univers 00:00:00 00:00:00 Only Unassigned, 48194.1.1 ity of [place] 3.104.2.7 [place] .3.449490 Medica l .8 [place] 2022-04-11 2022-04-11 Telephone Sy, 1.2.840.1 [id number] Univers 00:00:00 00:00:00 [place] 04622.1.1 ity of 3.104.2.7 [place] .3.602889 Medica l .8 [place] 2022-03-30 2022-03-30 Refill Sy, 1.2.840.1 [id number] Univers 00:00:00 00:00:00 Qiangjun 48705.1.1 ity of 3.104.2.7 [place] .3.914364 Medica l .8 [place] 2022-03-15 2022-03-15 Telephone Sewani, 1.2.840.7 [id number] [id number] Univers 00:00:00 00:00:00 Wayne 26703.1.1 ity of 3.104.2.7 [place] .3.158184 Medica l .8 [place] 2022-03-14 2022-03-14 Orthophotography Technician [place] 1.2.840.1 [id number] Univers 09:30:00 09:45:00 Visit Pob, Adc Lab Main 74500.1.1 ity of 3.104.2.7 [place] .3.712937 Medica l .8 [place] 2022-03-14 2022-03-14 Outpatient [facility] [id number] Univers 09:30:00 09:30:00 [place] perez o [facility] [place] [facility] 2022-03-14 2022-03-14 Orders Doctor 1.2.840.2 [id number] Univers 00:00:00 00:00:00 Only Unassigned, 79399.1.1 ity of [place] 3.104.2.7 [place] .3.866062 Medica l .8 [place] 2022-03-14 2022-03-14 Telephone Sy, 1.2.840.9 [id number] Univers 00:00:00 00:00:00 Qiamerjun 55625.1.1 ity of 3.104.2.7 [place] .3.527621 Medica l .8 [place] 2022-02-28 2022-02-28 Orthophotography Technician 1, Adc Lab [facility] 1.2.840.114 [id number] Univers 13:30:00 13:45:00 Visit [place] Dan 350.1.13.10 ity of [place] 4.2.7.2.686 [facility] [phone] [facility] [address] [place] 2022-02-28 2022-02-28 Outpatient R [facility] [id number] Univers 13:00:00 13:20:24 [place] ana jimenes [facility] [place] [facility] 2022-02-28 2022-02-28 Office Sy, [facility] 1.2.840.114 [id number] Univers 13:00:00 13:20:24 Visit [place] ARANDA 350.1.13.10 ity of [place] 4.2.7.2.686 [facility] [phone] Fl dical NAL 059 Branch [facility] 2022-02-28 2022-02-28 Outpatient R SY, [facility] [id number] Univers 13:00:00 13:00:00 CATRINAJUAN ana jimenes [facility] [place] [facility] 2022-02-28 2022-02-28 Outpatient R SY, [facility] [id number] Univers 13:00:00 13:00:00 [place] perez o [facility] [place] [facility] 2022-02-28 2022-02-28 Outpatient R SY, [facility] [id number] Univers 13:00:00 13:00:00 QIAJUAN itjake o f [facility] 2022-02-28 2022-02-28 Orders Doctor JOHANN 1.2.840.114 [id number] Univers 00:00:00 00:00:00 Only Unassigned, MIKE 350.1.13.10 ity of [place] [facility] 4.2.7.2.686 Babak as [id number] [address] 2022-02-28 2022-02-28 Telephone [facility] 1.2.750.549 [id number] [id number] Univers 00:00:00 00:00:00 Qiamerjun [place] 350.1.13.10 ity of [place]2.[place].2.[place] [phone] Fl dical NAL 059 [facility] 2022-02-14 2022-02-14 Orthophotography Technician Farnaz, Adc Lab Main [facility] 1.2.8 40.114 [id number] Univers 09:45:00 10:00:00 Visit Sy [place] ARANDA 350.1.13.10 ity of [place] 4.2.7.2.[place] [id number] Fl dicmt NAL 353 [facility] 2022-02-14 2022-02-14 Outpatient [facility] [id number] Univers 09:45:00 09:45:00 [place] perez o f [facility] 2022-02-14 2022-02-14 Orders Doctor JOHANN 1.2.840.114 [id number] Univers 00:00:00 00:00:00 Only Unassigned, MIKE 350.1.13.10 ity of [place] [facility] 4.2.7.2.686 Babak as [phone] [address] 2022-02-14 2022-02-14 Telephone [facility] 1.2.416.508 [id number] Univers 00:00:00 00:00:00 Qiamerjun [place] 350.1.13.10 ity of [place] 4.2.7.2.[place] [id number] Fl dical NAL 059 [facility] 2022-02-13 2022-02-13 Refill [facility] 1.2.840.114 [id number] Univers 00:00:00 00:00:00 [place] GRAYSONTON 350.1.13.10 ity of [place] 4.2.7.2.[place] [phone] Fl dical NAL [address] [place] [address] 2022-01-27 2022-01-27 Telephone [facility] 1.2.001.003 [id number] Univers 00:00:00 00:00:00 [place] G[place]YS[place]ON 350.1.13.10 ity of [place] 4.2.7.2.[place] [phone] Fl dical NAL [address] [place] [address] 2022-01-25 2022-01-25 Orthophotography Technician Farnaz, Adc Lab Main [facility] 1.2.8 40.114 [id number] Univers 08:45:00 09:00:00 Visit [place] Dan ROSI 350.1.13.10 ity of [place] 4.2.7.2.686 [place] [phone] Fl dical NAL [address] [place] [address] 2022-01-25 2022-01-25 Outpatient R [facility] [id number] Univers 08:45:00 08:45:00 ROGERZAHEER ity o f [facility] 2022-01-19 2022-01-19 Orthophotography Technician Farnaz, Adc Lab Main [facility] 1.2.8 40.114 [id number] Univers 12:30:00 12:45:00 Visit [place] Dan 350.1.13.10 ity of [place] 4.2.7.2.[place] [phone] Fl dical NAL [address] [place] [address] 2022-01-19 2022-01-19 Outpatient R [facility] [id number] Univers 12:30:00 12:30:00 ROGERZAHEER ity o f [facility] 2022-01-19 2022-01-19 Telephone [facility] 1.2.629.369 [id number] Univers 00:00:00 00:00:00 Rogerzaheer [place] 350.1.13.10 ity of [place] 4[place]2.7.2.[place] [phone] Fl dical NAL 9 [facility] 2022-01-17 2022-01-17 Orthophotography Technician Farnaz, Adc Lab Main [facility] 1.2.8 40.114 [id number] Univers 08:45:00 09:00:00 Visit [place] Dan 350.1.13.10 ity of [place] 4.2.7.2.686 [place] [phone] [address] 2022-01-17 2022-01-17 Outpatient R [facility] [id number] Univers 08:45:00 08:45:00 [place] ity o f [facility] 2022-01-17 2022-01-17 [facility] 1..197.194 [id number] Univers 00:00:00 00:00:00 [place] ANGLEJAVIER 350.1.13.10 ity of [place] 4.2.7.2.[place] [phone] [address] 2021-12-28 2021-12-28 Orthophotography Technician Farnaz, Adc Lab Main [facility] 1.2.8 40.114 [id number] Univers 10:30:00 10:45:00 Visit Yolande Santacruz 350.1.13.10 ity of [place] 4.2.7.2.[place] [id number] Fl dic[address] 2021-12-28 2021-12-28 Outpatient R IVAN [facility] [id number] Univers 10:30:00 10:30:00 YOLANDE itjake of [facility] 2021-12-28 2021-12-28 Telephone YANY Dan 1..505.499 0375 [id number] Univers 00:00:00 00:00:00 [place] PEDIATRIC 350.1.13.10 [place] of [place]2.7.2.[place] [phone] [place] 831879 [facility] 2021-12-15 2021-12-15 Telephone [facility] 1.2.418.670 [id number] Univers 00:00:00 00:00:00 [place] GRAYSONTON 350.1.13.10 ity of [place] 4.2.7.2.[place] [phone] [place] 857039 [facility] 2021-12-15 2021-12-15 Telephone [facility] 1.2.667.369 [id number] Univers 00:00:00 00:00:00 [place] ARANDA 350.1.13.10 ity of [place] 4.2.7.2.[place] [id number] [place] 857039 [facility] 2021-12-15 2021-12-15 Refill [facility] 1.2.840.114 [id number] Univers 00:00:00 00:00:00 [place] ARANDA 350.1.13.10 it[facility] 4.2.7.2.[place] [id number] [place] 857039 [facility] 2021-12-14 2021-12-14 Orthophotography Technician Farnaz, Adc Lab Main [facility] 1.2.8 40.114 [id number] Univers 12:30:00 12:45:00 Visit [place] Dan 350.1.13.10 ity of [place] 4.2.7.2.[place] [phone] [facility] 353 [facility] 2021-12-14 2021-12-14 Outpatient R [facility] [id number] Univers 12:30:00 12:30:00 [place] scotty o f [facility] 2021-12-14 2021-12-14 Orders Doctor JOHANN 1.2.840.114 [id number] Univers 00:00:00 00:00:00 Only Unassigned, MIKE 350.1.13.10 ity of [place] [facility] 4.2.7.2.686 Babak as [phone] [address] 2021-12-04 2021-12-04 Orthophotography Technician Farnaz, Adc Lab Main [facility] 1.2.8 40.114 [id number] Univers 14:15:00 14:30:00 Visit Sy, [place] ARANDA 350.1.13.10 ity of [facility] 4.2.7.2.[place] [id number] Fl dical NAL 353 [facility] 2021-12-04 2021-12-04 Outpatient R [facility] [id number] Univers 14:15:00 14:15:00 [place] ity o f [facility] 2021-12-04 2021-12-04 Outpatient R [facility] [id number] Univers 14:15:00 14:15:00 QIAJUAN tylery o f [facility] 2021-12-04 2021-12-04 Transition GamezALESIA 1.2.840.114 [id number] Univers 00:00:00 00:00:00 of Thao SAMANIEGO 350.1.13.10 it y of [place] 4[place]2.7.2.[place] [id number] [facility] [address] [place] 2021-12-04 2021-12-04 Telephone [facility] 1.2.202.037 [id number] Univers 00:00:00 00:00:00 [place] ARANDA 350.1.13.10 ity of [place] 4.2.7.2.686 [place] [phone] Fl dical NAL 059 [facility] 2021-11-23 2021-12-01 Inpatient R REBECA HOLCOMB [facility] 10 [id number] Univers 15:31:00 14:11:00 REBECA HOLCOMB ity of [facility] 2021-11-23 2021-12-01 [facility] SHAYAN Holcomb 1.2.192.252 [id number] Univers 15:31:00 14:11:00 Encounter Rebeca MCKEON 350.1.13.10 ity of [facility] 4.2.7.2.686 Babak as [id number] [facility] [address] [place] 2021-12-01 2021-12-01 Telephone [facility] 1.2.872.534 [id number] 0453 Univers 00:00:00 00:00:00 Wayne ARANDA 350.1.13.10 i ty of [place] 4.2.7.2.[place] [phone] [facility] 059 [facility] 2021-11-23 2021-11-23 Orders Doctor JOHANN 1.2.840.114 [id number] Univers 00:00:00 00:00:00 Only Unassigned, MIKE 350.1.13.10 ity of [place] [facility] 4.2.7.2.686 Babak as [id number] [address] 2021-11-22 2021-11-22 Orthophotography Technician Farnaz, Adc Lab Main [facility] 1.2.8 40.114 [id number] Univers 07:45:00 08:00:00 Visit [place] Dan 350.1.13.10 ity of [facility] 4.2.7.2.[place] [id number] [address] 2021-11-22 2021-11-22 Outpatient R [facility] [id number] Univers 07:45:00 07:45:00 [place] perez o [facility] [place] [facility] 2021-11-22 2021-11-22 Outpatient R [facility] [id number] Univers 07:45:00 07:45:00 [place] perez o [facility] 2021-11-20 2021-11-20 Telephone [facility] 1.2.473.214 [id number] Univers 00:00:00 00:00:00 [place] ARANDA 350.1.13.10 ity of [place] 4.2.7.2.[place] [id number] [address] 2021-11-10 2021-11-10 Orthophotography Technician Farnaz, Adc Lab Main [facility] 1.2.8 40.114 [id number] Univers 16:45:00 17:00:00 Visit [place] Dan 350.1.13.10 ity of [facility] 4.2.7.2.[place] [phone] [address] 2021-11-10 2021-11-10 Outpatient R [facility] [id number] Univers 16:45:00 16:45:00 [place] scotty o f [facility] 2021-11-10 2021-11-10 Outpatient R SY, [facility] [id number] Univers 16:45:00 16:45:00 [place] scotty o f [facility] 2021-11-10 2021-11-10 [facility]phone [facility] 1.2.934.614 [id number] Univers 00:00:00 00:00:00 [place] GRAYSONTON 350.1.13.10 ity of [place] 4.2.7.2.686 [place] [phone] Fl dical NAL 9 Branch [facility] 2021-11-07 2021-11-07 [facility] 1.2.840.114 [id number] Univers 00:00:00 00:00:00 h, [employer] 350.1.13.10 i ty of [place]2.7.2.686 [place] [phone] [place] [address] Branch OFFICE BUILDING 2021-11-06 2021-11-06 Orthophotography Technician Farnaz, Adc Lab Main [facility] 1.2.8 40.114 [id number] Univers 13:15:00 13:30:00 Visit Sy [place] ARANDA 350.1.13.10 ity of [place] 4.2.7.2.[place] [id number] Fl dical NAL 353 [facility] 2021-11-06 2021-11-06 Outpatient R [facility] [id number] Univers 13:15:00 13:15:00 ROGERZAHEER tylery o f [facility] 2021-11-06 2021-11-06 Outpatient R SY, [facility] [id number] Univers 13:15:00 13:15:00 ROGERZAHEER tylery o [facility] 2021-11-06 2021-11-06 [facility]phone [facility] 1.2.585.381 [id number] Univers 00:00:00 00:00:00 [place] GRAYSONTON 350.1.13.10 ity of [place] 4.2.7.2.686 [place] [phone] Fl dical NAL 9 [facility] 2021-11-06 2021-11-06 Telephone [facility] 1.2.621.477 [id number] Univers 00:00:00 00:00:00 Wayne HEALTH 350.1.13.10 it y of [place] [phone] [facility] [address] [place] OFFICE [facility] 2021-11-03 2021-11-03 Outpatient R HIMA [facility] [id number] Univers 15:00:00 15:40:28 WAYNE ity [facility] 2021-11-03 2021-11-03 [facility] [id number] Univers 15:00:00 15:40:28 WAYNE ity [facility] 2021-11-03 2021-11-03 Office [facility] 1.2.840.114 [id number] Univers 15:00:00 15:20:00 Visit [facility] 350.1.13.10 [facility] [place] [phone] Fl dical NAL 9 [facility] 2021-11-03 2021-11-03 Outpatient R HIMA [facility] [id number] Univers 15:00:00 15:00:00 WAYNE ity [facility] 2021-11-03 2021-11-03 Orthophotography Technician Farnaz, Andre [facility] Main [facility] 1.2.8 40.114 [id number] Univers 14:30:00 14:45:00 Visit [place] 350.1.13.10 [facility] [place] [phone] Me dical NAL 353 [facility] 2021-11-03 2021-11-03 Outpatient R HIMA [facility] [id number] Univers 11:00:00 11:00:00 WAYNE ity [facility] 2021-11-03 2021-11-03 [facility] [id number] Univers 11:00:00 11:00:00 WAYNE ity [facility] 2021-11-03 2021-11-03 Outpatient R HIMA, [facility] [id number] Univers 11:00:00 11:00:00 WAYNE ity of [facility] 2021-11-03 2021-11-03 Telephone [facility] [id number] Univers 00:00:00 00:00:00 [place] ARANDA [id number] [facility] 4[place] [phone] Fl dical NAL 059 [facility] 2021-10-25 2021-10-25 [facility]ill [facility] 1.2.840.114 [id number] Univers 00:00:00 00:00:00 [place] ARANDA 350.1.13.10 [facility] 4[place] [phone] Fl dical NAL 059 [facility] 2021-10-23 2021-10-23 Orthophotography Technician Farnaz, Adc Lab Main [facility] 1.2.8 40.114 [id number] Univers 10:15:00 10:30:00 Visit Sy [place] ARANDA 350.1.13.10 [facility] 4[place] [phone] [facility] 353 [facility] 2021-10-23 2021-10-23 [facility] [id number] Univers 10:15:00 10:15:00 [place] perez o f [facility] 2021-10-23 2021-10-23 Outpatient [facility] [id number] Univers 10:15:00 10:15:00 [place] perez o f [facility] 2021-10-23 2021-10-23 Orders Doctor JOHANN 1.2.840.114 [id number] Univers 00:00:00 00:00:00 Only Unassigned, MIKE 350.1.13.10 ity of [place] [facility] 4.2.7.2.686 [place] as [phone] [address] 2021-10-23 2021-10-23 [facility] 1.2.840.114 [id number] Univers 00:00:00 00:00:00 [place] 350.1.13.10 [place] [place] [phone] Fl dical NAL 9 [facility] 2021-10-23 2021-10-23 Telephone [facility] 1.2.675.835 [id number] [facility] 00:00:00 00:00:00 Qiangjun [place] 350.1.13.10 ity of [place] [phone] Fl dical NAL 9 [facility] 2021-10-18 2021-10-18 Orthophotography Technician Farnaz, Adc Lab Main [facility] 1.2.8 40.114 [id number] Univers 09:30:00 09:45:00 Visit [place] DanTON 350.1.13.10 ity of [place].2.7.2.[place] [phone] Fl dicmt NAL [address] [place] [address] 2021-10-18 2021-10-18 Outpatient R SY, [facility] [id number] Univers 09:30:00 09:30:00 QIANGJUN ity o f [facility] 2021-10-18 2021-10-18 Outpatient R SY, [facility] [id number] Univers 09:30:00 09:30:00 QIANGJUN ity o f [facility] 2021-10-18 2021-10-18 Telephone [facility] 1.2.678.918 [id number] [facility] 00:00:00 00:00:00 [place] 350.1.13.10 ity of [place] 4.[place].7.[place] [phone] Fl dical NAL [address] [place] [address] 2021-10-13 2021-10-13 Orthophotography Technician Farnaz, Adc Lab Main [facility] 1.2.8 40.114 [id number] Univers 10:45:00 11:00:00 Visit [place] DanTON 350.1.13.10 ity of [place] 4.2.7.2.[place] [phone] Fl dical [address] 2021-10-13 2021-10-13 Outpatient R SY, [facility] [id number] Univers 10:45:00 10:45:00 [place] scotty o [facility] 2021-10-13 2021-10-13 Outpatient R SY, [facility] [id number] Univers 10:45:00 10:45:00 [place] scotty o [facility] 2021-10-13 2021-10-13 [facility]phone [facility] 1.2.712.958 [id number] Univers 00:00:00 00:00:00 [place] 350.1.13.10 it[place] of [place] 4.[place].2.[place] [phone] [address] 2021-09-27 2021-09-27 Orthophotography Technician Farnaz, Adc Lab Main [facility] 1.2.8 40.114 [id number] Univers 10:15:00 10:30:00 Visit Sy [place] 350.1.13.10 ity of [place] 4.2.7.2.[place] [id number] [address] 2021-09-27 2021-09-27 Outpatient R SY, [facility] [id number] Univers 10:15:00 10:15:00 [place] scotty o [facility] 2021-09-27 2021-09-27 Outpatient R SY, [facility] [id number] Univers 10:15:00 10:15:00 CATRINAJUAN tylery o [facility] 2021-09-27 2021-09-27 Telephone [facility] 1.2.663.544 [id number] Univers 00:00:00 00:00:00 Qiamerjun [place] 350.1.13.10 ity of [place] 4.2.7.2.[place] [phone] [address] 2021-09-27 2021-09-27 Telephone [facility] 1.2.992.037 [id number] Univers 00:00:00 00:00:00 Qiangjun [place] 350.1.13.10 it[place] of [place] 4.2.7.2.[place] [phone] Fl dical NAL 059 [facility] 2021-09-21 2021-09-21 [facility]ill [facility] 1.2.840.114 [id number] Univers 00:00:00 00:00:00 Catrinamerzaheer [place] 350.1.13.10 ity of [place] 4.2.7.2.[place] [phone] Fl dical NAL 059 [facility] 2021-09-01 2021-09-01 Telephone [facility] 1.2.050.268 [id number] Univers 00:00:00 00:00:00 [place] 350.1.13.10 [facility] 4.2.7.2.[place] [phone] Fl dical NAL 059 [facility] 2021-08-30 2021-08-30 Orthophotography Technician Farnaz, Adc Lab Main [facility] 1.2.8 40.114 [id number] Univers 09:00:00 09:15:00 Visit Sy [place] ARANDA 350.1.13.10 ity [facility] 4.2.7.2.[place] [phone] Fl dical NAL 353 [facility] 2021-08-30 2021-08-30 Outpatient R [facility] [id number] Univers 09:00:00 09:00:00 [place] scotty o f [facility] 2021-08-30 2021-08-30 Outpatient R [facility] [id number] Univers 09:00:00 09:00:00 [place] scotty o f [facility] 2021-08-30 2021-08-30 Orders Doctor WILLS 1.2.840.114 [id number] Univers 00:00:00 00:00:00 Only Unassigned, MIKE 350.1.13.10 ity of [place] [facility] 4.2.7.2.686 Babak as [phone] [address] 2021-08-30 2021-08-30 Telephone [facility] 1.2.563.057 [id number] Univers 00:00:00 00:00:00 [place] ARANDA 350.1.13.10 ity of [place] 4.2.7.2.[place] [phone] Fl dicmt NAL 9 [facility] 2021-08-28 2021-08-28 Office Sy, [facility] 1.2.840.114 [id number] Univers 10:40:00 10:49:42 Visit [place] ARANDA 350.1.13.10 ity [facility] 4.2.7.2.[place] [phone] [address] 2021-08-28 2021-08-28 Outpatient R SY, [facility] [id number] Univers 10:40:00 10:49:42 [place] perez o [facility] 2021-08-28 2021-08-28 Outpatient R SY, [facility] [id number] Univers 10:40:00 10:40:00 [place] perez o [facility] 2021-08-28 2021-08-28 Outpatient R SY, [facility] [id number] Univers 10:40:00 10:40:00 [place] perez o [facility] 2021-08-16 2021-08-16 Orthophotography Technician Farnaz, Andre Lab Main [facility] 1.2.8 40.114 [id number] Univers 12:15:00 12:30:00 Visit [place] Dan 350.1.13.10 ity of [place] 4.2.7.2.[place] [phone] [facility] 353 [facility] 2021-08-16 2021-08-16 Outpatient R SY, [facility] [id number] Univers 12:15:00 12:15:00 [place] perez o [facility] 2021-08-16 2021-08-16 Outpatient R SY, [facility] [id number] Univers 12:15:00 12:15:00 [place] perez o [facility] 2021-08-16 2021-08-16 Orders Doctor WILLS 1.2.840.114 [id number] Univers 00:00:00 00:00:00 Only Unassigned, MIKE 350.1.13.10 ity of [place] [facility] 4.2.7.2.686 Babak as [phone] [address] 2021-08-16 2021-08-16 Telephone [facility] 1.2.755.692 [id number] Univers 00:00:00 00:00:00 [place] ROSI 350.1.13.10 ity [facility] 4.2.7.2.[place] [phone] Fl dicmt NAL 9 [facility] 2021-08-02 2021-08-02 Orthophotography Technician Farnaz, Adc Lab Main [facility] 1.2.8 40.114 [id number] Univers 09:00:00 09:15:00 Visit Sy [place] ARANDA 350.1.13.10 ity of [place] 4.2.7.2.[place] [phone] [facility] 353 [facility] 2021-08-02 2021-08-02 Outpatient R [facility] [id number] Univers 09:00:00 09:00:00 [place] perez o [facility] 2021-08-02 2021-08-02 Outpatient R [facility] [id number] Univers 09:00:00 09:00:00 [place] perez o [facility] 2021-08-02 2021-08-02 Orders Doctor WILLS 1.2.840.114 [id number] Univers 00:00:00 00:00:00 Only Unassigned, MIKE 350.1.13.10 ity of [place] [facility] 4.2.7.2.686 Babak as [phone] [address] 2021-08-02 2021-08-02 Telephone [facility] 1.2.524.209 [id number] Univers 00:00:00 00:00:00 Rogerzaheer ROSI 350.1.13.10 ity of [facility] 4.2.7.2.[place] [phone] Fl dicmt NAL [address] [place] [address] 2021-07-10 2021-07-10 Refill Sy [facility] 1.2.840.114 [id number] Univers 00:00:00 00:00:00 Qiajuan [place] 350.1.13.10 ity of [place] 4.2.7.2.[place] [phone] Fl dical NAL 059 [facility] 2021-07-05 2021-07-05 Orthophotography Technician Farnaz, Adc Lab Main [facility] 1.2.8 40.114 [id number] Univers 09:30:00 09:45:00 Visit [place] DanTON 350.1.13.10 ity of [place] 4.2.7.2.[place] [phone] Fl dical NAL 353 [facility] 2021-07-05 2021-07-05 [facility] [id number] Univers 09:30:00 09:30:00 QIAJUAN ity o f [facility] 2021-07-05 2021-07-05 [facility] [id number] Univers 09:30:00 09:30:00 QIAMERJUN ity o [facility] 2021-07-05 2021-07-05 Telephone [facility] 1.2.440.035 [id number] Univers 00:00:00 00:00:00 [place] 350.1.13.10 ity of [place] 4.2.7.2.[place] [phone] Fl dical NAL 059 [facility] 2021-06-15 2021-06-15 Orthophotography Technician Farnaz, Adc Lab Main [facility] 1.2.8 40.114 [id number] Univers 09:45:00 10:00:00 Visit [place] Dan 350.1.13.10 ity of [place] 4.2.7.2.[place] [phone] Fl dical NAL 353 [facility] 2021-06-15 2021-06-15 Outpatient R [facility] [id number] Univers 09:45:00 09:23:22 QIANGJUN ity o f [facility] 2021-06-15 2021-06-15 Outpatient [facility] [id number] Univers 09:45:00 09:23:22 [place] ity o f [facility] 2021-06-15 2021-06-15 Orders Doctor JOHANN 1.2.840.114 [id number] Univers 00:00:00 00:00:00 Only Unassigned, MIKE 350.1.13.10 ity of [place] [facility] 4.2.7.2.686 Babak as [phone] [place] [address] [address] 2021-06-15 2021-06-15 Telephone YANY Dan 1.2.935.522 [id number] Univers 00:00:00 00:00:00 [place] PEDIATRIC 350.1.13.10 [place] of [place] [phone] [facility] PRIMARY [address] [facility] 2021-05-31 2021-05-31 Orthophotography Technician Farnaz, Adc Lab Main [facility] 1.2.8 40.114 [id number] Univers 10:45:00 11:00:00 Visit [place] Dan 350.1.13.10 ity [facility] 4.2.7.2.[place] [phone] [facility] 353 [facility] 2021-05-31 2021-05-31 Office [facility] 1.2.840.114 [id number] Univers 10:00:00 10:33:12 Visit [place] ARANDA 350.1.13.10 ity of [facility] 4.2.7.2.[place] [phone] Fl richamt NAL 059 [facility] 2021-05-31 2021-05-31 Outpatient R SY [facility] [id number] Univers 10:00:00 10:33:12 [place] perez o f [facility] 2021-05-31 2021-05-31 Outpatient R SY [facility] [id number] Univers 10:00:00 10:00:00 [place] scotty o f [facility] 2021-05-31 2021-05-31 Telephone [facility] 1.2.746.204 [id number] Univers 00:00:00 00:00:00 [place] ARANDA 350.1.13.10 ity of [facility] 4.2.7.2.[place] [phone] Me dical NAL 059 [facility] 2021-05-26 2021-05-26 Emergency X MARCOS K [facility] ERT [id number] Univers 17:30:00 20:34:00 ity of [facility] 2021-05-26 2021-05-26 Emergency Ricky Joseph [facility] 1.2.840.114 [id number] Univers 17:30:00 20:34:00 Myah ARANDA 350.1.13.10 i ty of [facility] 4.2.7.2.[place] [phone] [facility] tyrone 084 [place] 2021-05-26 2021-05-26 Outpatient R SY, [facility] [id number] Univers 10:20:00 10:20:00 [place] scotty o [facility] 2021-05-26 2021-05-26 Outpatient [facility] [id number] Univers 10:20:00 10:20:00 [place] scotty o [facility] 2021-05-10 2021-05-10 Orthophotography Technician Farnaz, Adc Lab Main [facility] 1.2.8 40.114 [id number] Univers 08:15:00 08:30:00 Visit Sy Rogerzaheer ROSI 350.1.13.10 ity [facility] 4.2.7.2.[place] [phone] Fl dical NAL 353 [facility] 2021-05-10 2021-05-10 Outpatient R [facility] [id number] Univers 08:15:00 08:15:00 QIAJUAN ity o [facility] 2021-05-10 2021-05-10 Outpatient R [facility] [id number] Univers 08:15:00 08:15:00 QIAJUAN ity o [facility] 2021-05-10 2021-05-10 Telephone [facility] 1.2.664.230 [id number] Univers 00:00:00 00:00:00 [place] ARANDA 350.1.13.10 ity of [facility] 4.2.7.2.[place] [phone] [facility] NAL [address] [place] [address] 2021-05-10 2021-05-10 Telephone [facility] 1.2.057.694 [id number] Univers 00:00:00 00:00:00 Qiamerjun [place] 350.1.13.10 ity of [place] 4.2.7.2.[place] [id number] [address] 2021-05-09 2021-05-09 [facility]ill [facility] 1.2.840.114 [id number] Univers 00:00:00 00:00:00 Qiangjun [place] 350.1.13.10 ity of [place] 4.2.7.2.[place] [phone] [address] 2021-05-04 2021-05-04 Refill [facility] 1.2.840.114 [id number] Univers 00:00:00 00:00:00 Qiangjun [place] 350.1.13.10 ity of [place] 4.2.7.2.[place] [phone] [address] 2021-04-28 2021-04-28 Outpatient R HIMA [facility] [id number] Univers 08:40:00 09:19:00 WAYNE ity [facility] 2021-04-28 2021-04-28 Office [facility] 1.2.840.114 [id number] Univers 08:40:00 09:19:00 [facility] 350.1.13.10 i [place] of [place] 4.2.7.2.[place] [id number] [address] 2021-04-28 2021-04-28 [facility] [id number] Univers 08:40:00 09:19:00 WAYNE ity [facility] 2021-04-28 2021-04-28 Orthophotography Technician Farnaz, Andre Lab Main [facility] 1.2.8 40.114 [id number] Univers 08:00:00 08:15:00 Visit [place] Dan 350.1.13.10 ity of [place] 4.2.7.2.686 [place] [phone] Fl dical NAL [address] [place] [address] 2021-04-27 2021-04-27 Orthophotography Technician Farnaz, Adc Lab Main [facility] 1.2.8 40.114 [id number] Univers 10:45:00 11:00:00 Visit [place] Dan 350.1.13.10 ity of [place] 4.2.7.2.[place] [phone] Fl dic[address] 2021-04-27 2021-04-27 Outpatient R SY [facility] [id number] Univers 10:45:00 10:45:00 ROGERZAHEER tylerjake o f [facility] 2021-04-27 2021-04-27 Outpatient R SY [facility] [id number] Univers 10:45:00 10:45:00 ROGERZAHEER tylerjake o [facility] 2021-04-27 2021-04-27 Telephone YANY Dan 1.2.838.746 [id number] Univers 00:00:00 00:00:00 Rogerzaheer PEDIATRIC 350.1.13.10 [place] [phone] [address] 2021-04-25 2021-04-25 Outpatient R HIMA [facility] [id number] Univers 10:20:00 10:20:00 WAYNE ity [facility] 2021-04-25 2021-04-25 Outpatient R HIMA [facility] [id number] Univers 10:20:00 10:20:00 WAYNE ity [facility] 2021-04-12 2021-04-12 Orthophotography Technician Farnaz, Adc Lab Main [facility] 1.2.8 40.114 [id number] Univers 09:30:00 09:45:00 Visit [place] Dan 350.1.13.10 ity of [place] 4.2.7.2.686 [place] [phone] Fl dical NAL [address] [place] [address] 2021-04-12 2021-04-12 [facility] [id number] Univers 09:30:00 09:30:00 [place] hayes [facility] 2021-04-12 2021-04-12 Outpatient R SY, [facility] [id number] Univers 09:30:00 09:30:00 [place] hayes [facility] 2021-04-12 2021-04-12 Orders Doctor JOHANN 1.2.840.114 [id number] Univers 00:00:00 00:00:00 Only Unassigned, MIKE 350.1.13.10 ity of [place] [facility] 4.2.7.2.686 Babak as [id number] [address] 2021-04-12 2021-04-12 Telephone [facility] 1.2.641.915 [id number] Univers 00:00:00 00:00:00 [place] ARANDA 350.1.13.10 ity of [place] 4.2.7.2.[place] [phone] Fl dical NAL 059 [facility] 2021-03-29 2021-03-29 Outpatient R [facility] [id number] Univers 11:20:00 11:20:58 [place] jimenes [facility] 2021-03-29 2021-03-29 Office [facility] 1.2.840.114 [id number] Univers 11:20:00 11:20:58 Visit [place] ARANDA 350.1.13.10 ity of [place] 4.2.7.2.686 [place] [id number] Fl dical NAL 059 [facility] 2021-03-28 2021-03-28 Orthophotography Technician Farnaz, Adc Lab Main [facility] 1.2.8 40.114 [id number] Univers 12:13:20 12:28:20 Visit [place] Dan 350.1.13.10 ity of [facility] 4.2.7.2.[place] [id number] Fl dical NAL 353 [facility] 2021-03-28 2021-03-28 Outpatient R [facility] [id number] Univers 12:15:00 12:15:00 [place] scotty o f [facility] 2021-03-28 2021-03-28 Outpatient R SY, [facility] [id number] Univers 12:15:00 12:15:00 [place] scotty o f [facility] 2021-03-28 2021-03-28 Orders Doctor JOHANN 1.2.840.114 [id number] Univers 00:00:00 00:00:00 Only Unassigned, MIKE 350.1.13.10 ity of [place] [facility] 4.2.7.2.686 Babak as [id number] [address] 2021-03-28 2021-03-28 Telephone [facility] 1.2.070.440 [id number] Univers 00:00:00 00:00:00 [place] ARANDA 350.1.13.10 ity of [facility] 4.2.7.2.[place] [id number] Fl dical NAL 059 [facility] 2021-03-28 2021-03-28 Refill [facility] 1.2.840.114 [id number] Univers 00:00:00 00:00:00 [place] ARANDA 350.1.13.10 ity of [facility] 4.2.7.2.[place] [id number] Fl dical NAL 059 [facility] 2021-03-20 2021-03-20 Outpatient R SY, [facility] [id number] Univers 13:45:00 13:45:00 [place] scotty o alfonso [facility] 2021-03-20 2021-03-20 Outpatient R SY, [facility] [id number] Univers 13:45:00 13:45:00 [place] scotty o [facility] 2021-03-20 2021-03-20 Orthophotography Technician Farnaz, Ander Lab Main [facility] 1.2.8 40.114 [id number] Univers 11:58:29 12:13:29 Visit Sy [place] ARANDA 350.1.13.10 ity of [facility] 4.2.7.2.[place] [id number] Fl dical NAL 353 [facility] 2021-03-20 2021-03-20 Telephone [facility] 1.2.553.935 [id number] Univers 00:00:00 00:00:00 [place] ARANDA 350.1.13.10 ity of [facility] 4.2.7.2.[place] [phone] [address] 2021-03-15 2021-03-15 Outpatient Joan VILLA [facility] [id number] Univers 09:15:00 09:15:00 JOSE ana [facility] 2021-03-15 2021-03-15 Outpatient Joan VILLA [facility] [id number] Univers 09:15:00 09:15:00 JOSE itjake [facility] 2021-03-15 2021-03-15 Orthophotography Technician Farnaz, Andre Lab Main [facility] 1.2.8 40.114 [id number] Univers 08:14:37 08:29:37 Visit Jose Villa 350.1.13. 10 ity of [place] 4.[place].7.2.[place] [phone] [address] 2021-03-15 2021-03-15 Orders Doctor JOHANN 1.2.840.114 [id number] Univers 00:00:00 00:00:00 Only Unassigned, MIKE 350.1.13.10 ity of [place] [facility] 4.2.7.2.686 Babak as [phone] [address] 2021-03-15 2021-03-15 Telephone [facility] 1.2.124.813 [id number] Univers 00:00:00 00:00:00 [place] ARANDA 350.1.13.10 ity of [place] 4.2.7.2.[place] [phone] [facility] 059 [facility] 2021-03-07 2021-03-07 Transition ALESIA Gamez 1.2.840.114 [id number] Univers 00:00:00 00:00:00 of Care Georgie SAMANIEGO 350.1.13.10 it y of [place]2.7.2.[place] [id number] [facility] [address] 2021-03-01 2021-03-06 Inpatient X FABIOLA [facility] BERENICE [id number] Univers 11:31:00 15:17:00 [facility] 2021-[facility]-01 2021-03-06 [facility] Jamie Deng [facility] 1.2.840.1 14 [id number] Univers 11:31:00 15:17:00 Encounter Mattlazara Caleb ARANDA 350.1.13.10 ity [facility] 4.2.7.2.[place] [phone] [facility] [address] 2021-03-01 2021-03-01 Outpatient X FABIOLA [facility] BERENICE [id number] Univers 11:31:00 11:31:00 CALEB [facility] 2021-02-27 2021-02-27 Outpatient R SY, [facility] [id number] Univers 11:20:00 11:44:55 [place] tylerjake o [facility] 2021-02-27 2021-02-27 Outpatient R SY, [facility] [id number] Univers 11:20:00 11:44:55 [place] perez [facility] 2021-02-27 2021-02-27 Outpatient R SY, [facility] [id number] Univers 11:20:00 11:44:55 [place] ana o [facility] 2021-02-27 2021-02-27 Outpatient R SY, [facility] [id number] Univers 11:20:00 11:44:55 [place] [facility] 2021-02-27 2021-02-27 Office Sy, [facility] 1.2.840.114 [id number] Univers 10:54:32 11:44:55 Visit [place] ARANDA [facility].13.[facility] 4.2.7.2.[place] [phone] [facility] 059 [facility] 2021-02-27 2021-02-27 Outpatient R SY, [facility] [id number] Univers 10:30:00 10:30:00 [place] scotty o f [facility] 2021-02-27 2021-02-27 Outpatient R SY, [facility] [id number] Univers 10:30:00 10:30:00 [place] scotty o f [facility] 2021-02-27 2021-02-27 Orthophotography Technician Farnaz, [facility] Lab Main [facility] 1.2.8 40.114 [id number] Univers 09:52:58 10:07:58 Visit [place] Dan [id number] [facility] [id number] [phone] Me dical NAL 353 [facility] 2021-02-27 2021-02-27 Orders Doctor JOHANN 1.2.840.114 [id number] Univers 00:00:00 00:00:00 Only Unassigned, MIKE [id number] [place]y of [place] [facility] 4.2.7.2.686 [place] as [phone] [address] 2021-02-27 2021-02-27 Telephone Sy, [facility] [id number] Univers 00:00:00 00:00:00 [place] KENANTON [id number] [id number] [phone] Fl dical NAL 059 [facility] 2021-02-24 2021-02-24 Outpatient R SY, [facility] [id number] Univers 10:45:00 10:45:00 [place] scot[place] o f [facility] 2021-02-24 2021-02-24 Outpatient R SY, [facility] [id number] Univers 10:45:00 10:45:00 [place] scot[place] o f [facility] 2021-02-24 2021-02-24 Orthophotography Technician Farnaz, [facility] Lab Main [facility] 1.2.8 40.114 [id number] Univers 09:17:46 09:32:46 Visit [place] DanJAVIER [id number] [id number] [phone] Fl dical NAL 353 [facility] 2021-02-24 2021-02-24 Telephone [facility] 1.2.542.748 [id number] Univers 00:00:00 00:00:00 Qiamerzaheer [place] 350.1.13.10 it[place] [phone] Fl dical NAL 059 [facility] 2021-02-24 2021-02-24 Telephone [facility] 1.2.830.078 [id number] Univers 00:00:00 00:00:00 [place] 350.1.13.10 it[place] of [place] [phone] Fl dical NAL 059 [facility] 2021-02-24 2021-02-24 [facility] 1.2.178.977 [id number] Univers 00:00:00 00:00:00 Rogerzaheer ROSI 350.1.13.10 it[place] of [place] [phone] Fl dical NAL 059 [facility] 2021-02-15 2021-02-15 Orthophotography Technician Farnaz, Adc Lab Main [facility] 1.2.8 40.114 [id number] Univers 09:47:39 10:02:39 Visit Sy Rogerzaheer ROSI 350.1.13.10 it[place] of [place] [phone] Fl dical ADITYA [address] [place] [address] 2021-02-15 2021-02-15 Outpatient R SY [facility] [id number] Univers 09:45:00 09:45:00 JAMA[place] perez o f [facility] 2021-02-15 2021-02-15 [facility] [id number] Univers 09:45:00 09:45:00 JAMAICA scotty o f [facility] 2021-02-15 2021-02-15 Orders Doctor WILLS 1.2.840.114 [id number] Univers 00:00:00 00:00:00 Only Unassigned, MIKE 350.1.13.10 ity of [place] [facility] 4.2.7.2.686 Babak as [phone] [facility] [address] 2021-02-15 2021-02-15 [facility] 1.2.151.361 [id number] Univers 00:00:00 00:00:00 [place] ARANDA 350.1.13.10 ity [facility] 4.2.7.2.[place] [phone] Fl dical NAL 059 Branch [facility] 2021-02-10 2021-02-10 Transition ALESIA Gamez 1.2.840.114 [id number] Univers 00:00:00 00:00:00 of Care Georgie SAMANIEGO 350.1.13.10 it y of [place] [phone] [facility] [address] 2021-02-04 2021-02-09 Inpatient X MIGUEL [facility] [id number] Univers 20:57:00 13:26:00 JENNIFER ity of [facility] 2021-02-04 2021-02-09 [facility] Jamie Deng [facility] 1.2.840.1 14 [id number] Univers 20:57:00 13:26:00 Encounter Wilber Flowers 350.1.13.10 ity of [place] 4.2.7.2.686 [facility] [phone] [facility] [address] 2021-01-02 2021-01-02 Orthophotography Technician Farnaz, Andre Lab Main [facility] 1.2.8 40.114 [id number] Univers 11:35:12 11:50:12 Visit [place] Dan 350.1.13.10 ity of [place] [phone] Fl dical nal 353 [facility] 2021-01-02 2021-01-02 Outpatient R SY [facility] [id number] Univers 11:45:00 11:45:00 JAMA[place] perez o f [facility] 2021-01-02 2021-01-02 Outpatient R SY [facility] [id number] Univers 11:45:00 11:45:00 J[place] scotty o f [facility] 2021-01-02 2021-01-02 Orders Doctor JOHANN 1.2.840.114 [id number] Univers 00:00:00 00:00:00 Only Unassigned, MIKE 350.1.13.10 ity of [place] [facility] 4.2.7.2.686 Babak as [phone] [address] 2021-01-02 2021-01-02 Telephone [facility] 1.2.257.454 [id number] Univers 00:00:00 00:00:00 [place] Aranda 350.1.13.10 ity of [place] [phone] Fl dical nal 059 [facility] 2021-01-02 2021-01-02 Refill [facility] 1.2.840.114 [id number] Univers 00:00:00 00:00:00 [place] Aranda 350.1.13.10 ity of [place] [phone] Fl dical nal 059 [facility] 2020-12-07 2020-12-07 Orthophotography Technician Franaz, Andre Lab Main [facility] 1.2.8 40.114 [id number] Univers 08:05:37 08:20:37 Visit SyJamaica 350.1.13.10 ity of [place].2.[place] [phone] Fl dical nal 353 [facility] 2020-12-07 2020-12-07 [facility] [id number] Univers 08:00:00 08:00:00 JAMAICA perez o f [facility] 2020-12-07 2020-12-07 Outpatient R [facility] [id number] Univers 08:00:00 08:00:00 JAMAICA scotty o f [facility] 2020-12-07 2020-12-07 Telephone [facility] 1.2.746.612 [id number] Univers 00:00:00 00:00:00 [place] Aranda 350.1.13.10 ity of [place] 4.2.7.2.686 Jose Elias Fleming [phone] Fl dical [facility] Branch [facility] 2020-11-23 2020-11-23 Outpatient R SY, [facility] [id number] Univers 13:37:45 23:59:00 J[place] jimenes [facility] 2020-11-23 2020-11-23 Outpatient R SY, [facility] [id number] Univers 13:37:45 23:59:00 JAMAICA perez o [facility] 2020-11-14 2020-11-14 Outpatient R SY, [facility] [id number] Univers 13:40:00 13:40:00 [place] perez [facility] 2020-10-12 2020-10-12 Outpatient R SY, [facility] [id number] Univers 08:00:00 08:00:00 [place] perez [facility] 2020-09-27 2020-09-27 Outpatient R SY, [facility] [id number] Univers 13:00:00 13:00:00 [place] perez [facility] 2020-09-22 2020-09-22 Outpatient R SY, [facility] [id number] Univers 09:30:00 09:30:00 J[place] perez [facility] 2020-09-07 2020-09-07 Outpatient R SY, [facility] [id number] Univers 08:45:00 08:45:00 [place] perez [facility] 2020-08-19 2020-08-19 Outpatient R SY, [facility] [id number] Univers 08:45:00 08:45:00 J[place] perez o [facility] 2020-08-15 2020-08-15 Outpatient R SY, [facility] [id number] Univers 10:45:00 10:45:00 J[place] perez [facility] 2020-08-08 2020-08-08 Outpatient R SY, [facility] [id number] Univers 11:45:00 11:45:00 J[place] perez [facility] 2020-08-08 2020-08-08 Orthophotography Technician Farnaz, [facility] 1.2.840.114 [id number] 11:14:44 11:29:44 Visit Lab Main [place] 350.1.13.10 [place] 4.2.7.2.686 Professio [phone] [address] 2020-08-08 2020-08-08 Orders Doctor JOHANN 1.2.840.114 [id number] 00:00:00 00:00:00 Only Unassigned, MIKE 350.1.13.10 [place] [facility] 4.2.7.2.686 [id number] 009 2020-08-08 2020-08-08 Telephone [facility] 1.2.966.259 [id number] 00:00:00 00:00:00 [place] 350.1.13.10 [place] 4.2.7.2.686 Professio [phone] [address] 2020-07-25 2020-07-25 [facility] 1.2.842.315 [id number] 00:00:00 00:00:00 [place] 350.1.13.10 [place] 4.2.7.2.686 Professio [phone] [address] 2020-07-20 2020-07-20 Outpatient R [facility] [id number] Univers 11:45:00 11:45:00 JAMAICA ity o f [facility] 2020-07-20 2020-07-20 [facility] 1.2.840.114 [id number] 10:37:03 10:52:03 Visit Lab Main [place] 350.1.13.10 [place] 4.2.7.2.686 Professio [phone] [address] 2020-07-20 2020-07-20 Orders Doctor JOHANN 1.2.840.114 [id number] 00:00:00 00:00:00 Only Unassigned, MIKE 350.1.13.10 [place] [facility] 4.2.7.2.686 [id number] 009 2020-07-20 2020-07-20 Telephone [facility] 1.2.701.818 [id number] 00:00:00 00:00:00 [place] 350.1.13.10 [place] 4.2.7.2.686 Professio [phone] [facility] 059 [facility] 2020-07-13 2020-07-13 Outpatient R SY, [facility] [id number] Univers 10:15:00 10:15:00 ROGERZAHEER tylerjake o [facility] 2020-07-13 2020-07-13 Orthophotography Technician Andre Osei [facility] 1.2.840.114 [id number] 09:23:20 09:38:20 Visit Lab Main [place] 350.1.13.10 [place] 4.2.7.2.686 Professio [phone] [address] 2020-07-13 2020-07-13 Telephone [facility] 1.2.294.270 [id number] 00:00:00 00:00:00 Rogerzaheer [place] 350.1.13.10 [place] 4.2.7.2.686 Professio [phone] [address] 2020-06-19 2020-06-19 Telephone [facility] 1.2.951.618 [id number] 00:00:00 00:00:00 [place] 350.1.13.10 [place] 4.2.7.2.686 Professio [phone] [address] 2020-06-17 2020-06-17 Orthophotography Technician Andre Osei [facility] 1.2.840.114 [id number] 09:22:55 09:37:55 Visit Lab Main [place] 350.1.13.10 [place] 4.2.7.2.686 Professio [phone] [address] 2020-06-17 2020-06-17 Outpatient R SY, [facility] [id number] Univers 09:30:00 09:30:00 J[place]ICA perez o f [facility] 2020-06-08 2020-06-08 Telephone [facility] 1.2.903.472 [id number] 00:00:00 00:00:00 [place] 350.1.13.10 [place] 4.2.7.2.686 Professio [phone] [facility] 2020-06-07 2020-06-07 Orthophotography Technician Farnaz, [facility] 1.2.840.114 [id number] 08:57:47 09:12:47 Visit Lab Main [place] 350.1.13.10 [place] 4.2.7.2.686 Professio [phone] [address] 2020-06-07 2020-06-07 Outpatient R [facility] [id number] Univers 09:00:00 09:00:00 J[place]ICA jimenes [facility] 2020-05-23 2020-05-23 Outpatient R [facility] [id number] Univers 09:15:00 09:15:00 J[place]ICA jimenes [facility] 2020-05-16 2020-05-16 Outpatient R [facility] [id number] [facility] 11:30:00 11:30:00 [place] perez [facility] 2020-05-16 2020-05-16 Orthophotography Technician Farnaz, [facility] 1.2.840.114 [id number] 11:09:17 11:24:17 Visit Lab Main [place] 350.1.13.10 [place] 4.2.7.2.686 Professio [phone] [address] 2020-05-16 2020-05-16 Orders Doctor JOHANN 1.2.840.114 [id number] 00:00:00 00:00:00 Only Unassigned, MIKE 350.1.13.10 [place] [facility] 4.2.7.2.686 [id number] 009 2020-05-16 2020-05-16 Telephone [facility] 1.2.708.112 [id number] 00:00:00 00:00:00 Catrinamerzaheer [place] 350.1.13.10 [place] 4.2.7.2.686 Professio [phone] [facility] 2020-05-11 2020-05-11 Orthophotography Technician Farnaz, [facility] 1.2.840.114 [id number] 09:25:07 09:40:07 Visit Lab Main [place] 350.1.13.10 [place] 4.2.7.2.686 Professio [phone] nal 353 [facility] 2020-05-11 2020-05-11 Outpatient R JEREMIAS [facility] [id number] Univers 09:30:00 09:30:00 SENDIL ity of [facility] 2020-05-11 2020-05-11 Telephone [facility] 1.2.590.569 [id number] 00:00:00 00:00:00 [place] 350.1.13.10 [place] 4.2.7.2.686 Professio [phone] [address] 2020-05-11 2020-05-11 [facility] 1.2.954.176 [id number] 00:00:00 00:00:00 [place] 350.1.13.10 [place] 4.2.7.2.686 Professio [phone] [address] 2020-05-04 2020-05-04 [facility] 1.2.099.944 [id number] 00:00:00 00:00:00 [place] 350.1.13.10 [place] 4.2.7.2.686 Professio [phone] [address] 2020-05-03 2020-05-03 Outpatient [facility] [id number] [facility] 11:30:00 11:30:00 J[place]ICA perez o f [facility] 2020-05-03 2020-05-03 Orthophotography Technician Andre Osei [facility] 1.2.840.114 [id number] 10:05:00 10:20:00 Visit Lab Main [place] 350.1.13.10 [place] 4.2.7.2.686 Professio [phone] [address] 2020-05-03 2020-05-03 Orders Doctor JOHANN 1.2.840.114 [id number] 00:00:00 00:00:00 Only Unassigned, MIKE 350.1.13.10 [place] [facility] 4.2.7.2.686 [id number] 009 2020-04-27 2020-04-27 Orthophotography Technician Andre Osei [facility] 1.2.840.114 [id number] 08:24:03 08:39:03 Visit Lab Main Rosi 350.1.13.10 [place] 4.2.7.2.686 Professio [phone] [facility] 353 [facility] 2020-04-27 2020-04-27 Outpatient R [facility] [id number] Univers 08:30:00 08:30:00 [place] jimenes [facility] 2020-04-27 2020-04-27 Telephone [facility] 1.2.054.636 [id number] 00:00:00 00:00:00 [place] Aranda 350.1.13.10 [place] 4.2.7.2.686 Professio [phone] [address] 2020-04-20 2020-04-20 Refill [facility] 1.2.840.114 [id number] 00:00:00 00:00:00 [place] Aranda 350.1.13.10 [place] 4.2.7.2.686 Professio [phone] [address] 2020-04-01 2020-04-01 Outpatient [facility] [id number] Univers 10:15:00 10:15:00 NICK perez [facility] 2020-03-29 2020-03-29 Office [facility] 1.2.840.114 [id number] 14:32:40 15:25:41 Visit [place] Aranda 350.1.13.10 [place] 4.2.7.2.686 Professio [phone] [address] 2020-03-29 2020-03-29 Outpatient R SY, [facility] [id number] Univers 14:40:00 14:40:00 CATRINAJUAN jimenes [facility] 2020-03-22 2020-03-22 Outpatient R SY, [facility] [id number] Univers 15:30:00 15:30:00 ROGERZAHEER tylerjake jimenes [facility] 2020-03-15 2020-03-15 Outpatient R [facility] [id number] Univers 11:15:00 11:15:00 QIAJUAN ity o f [facility] 2020-02-24 2020-02-24 Outpatient R SY, [facility] [id number] Univers 08:40:00 08:40:00 QIANGJUN ity o f [facility] 2020-02-17 2020-02-17 Outpatient R SY, [facility] [id number] Univers 09:15:00 09:15:00 QIANGJUN ity o [facility] 2020-01-11 2020-01-11 Outpatient R SY, [facility] [id number] Univers 12:45:00 12:45:00 QIANGJUN ity o [facility] 2019-12-17 2019-12-17 Outpatient R SY, [facility] [id number] Univers 11:00:00 11:00:00 JAMAICA ity o [facility] 2019-11-26 2019-11-26 Outpatient R SY, [facility] [id number] Univers 12:45:00 12:45:00 J[place]ICA ity o [facility] 2019-10-30 2019-10-30 Outpatient R RADIOLOGY [facility] [id number] Univers 00:00:00 00:00:00 y [facility] 2019-10-20 2019-10-20 Outpatient R MCDERMOTT, ALICJA [facility] [id number] Univers 09:30:00 09:30:00 y [facility] 2019-09-30 2019-09-30 Outpatient R SY, [facility] [id number] Univers 08:30:00 08:30:00 J[place] ity o [facility] 2019-09-08 2019-09-08 Outpatient R SY, [facility] [id number] Univers 15:20:00 15:20:00 QIANGJUN ity o [facility] 2019-09-03 2019-09-03 Outpatient R SY, [facility] [id number] Univers 09:00:00 09:00:00 QIAMERJUN ity o [facility] 2019-07-24 2019-07-24 Outpatient R SY, [facility] [id number] Univers 11:45:00 11:45:00 QIANGJUN ity o [facility] 2019-06-22 2019-06-22 Outpatient R SY, [facility] [id number] Univers 13:30:00 13:30:00 [place] perez o f [facility] Results Test Description Test Time Test Comments [...] indications. Lab Interpretation (test code Abnormal = 71769-0) [facility] / [id number] 15:08:40 Test Item Value Reference Range Interpretation Comments PROTIME PATIENT (test 24.8 See_Comment H [Auto mated message] code = 5964-2) The system [employer] generated this result transmitted ref erence range: 12.0 - 1 4.7 Seconds. The reference range was not used to int erpret this result as normal/abnormal . INR (test code = 6301-6) 2.3 Nor mal INR <1.1; Warfarin Therap eutic range 2.0 to 3. 0 or 2.5 to 3.5, dep ending upon the indica tions. Lab Interpretation (test Abnormal code = 18514-6) [facility] / [id number] 15:08:40 Test Item Value Reference Range Interpretation Comments PROTIME PATIENT (test 24.8 See_Comment H [Auto mated message] code = 5964-2) The system [employer] generated this result transmitted ref erence range: 12.0 - 1 4.7 Seconds. The reference range was not used to int erpret this result as normal/abnormal . INR (test code = 6301-6) 2.3 Nor mal INR <1.1; Warfarin Therap eutic range 2.0 to 3. 0 or 2.5 to 3.5, dep ending upon the indica tions. Lab Interpretation (test Abnormal code = 26851-4) [facility] / [id number] 18:32:10 Test Item Value Reference Range Interpretation Comments PROTIME PATIENT (test 24.4 See_Comment H [Auto mated message] code = 5964-2) The system [employer] generated this result transmitted ref erence range: 12.0 - 1 4.7 Seconds. The reference range was not used to int erpret this result as normal/abnormal . INR (test code = 6301-6) 2.2 Nor mal INR <1.1; Warfarin Therap eutic range 2.0 to 3. 0 or 2.5 to 3.5, dep ending upon the indica tions. Lab Interpretation (test Abnormal code = 16517-6) [facility] ([facility])2022-06-11 22:45:29 Test Item Value Reference Range Interpretation Comments Height (test code = 63 in 8888378917) Weight (test code = 102 lbs 3753400736) Systolic BP (test 123 mmHg code = 5997495421) Diastolic BP (test 64 mmHg code = 6076593255) Heart Rate (test code 61 bpm = 2134151130) LVOT peak amrita (test 114.0 cm/s code = 6064856930) LVOT mn grad (test 3.0 mmHg code = 1035610287) Aortic valve mean 209.0 cm/s velocity (test code = 3150909409) Ao peak amrita (test 333.0 cm/s code = 7829517594) Ao VTI (test code = 71.7 cm 0664770340) AV LVOT peak gradient 5.2 mmHg (test code = 5461599816) LVOT peak VTI (test 29.0 cm code = 7143855798) AV Doppler amrita index 0.34 ratio VTI (test code = 8256768151) LV V1 mean (test code 82.60 cm/s = 9430007342) Ao max PG (test code 44.40 mm[Hg] = 6635892192) AV peak gradient 44.4 mmHg (test code = 8561569605) AV mean gradient 21.0 mmHg (test code = 7928144518) Radiology Study observation (narrative) (test code = 24755-1) ROBERT (test code = ROBERT) ?Aortic?Valve: Mechanical [...] captured. The probe was inserted by the machine cloth trimmer. Probe in 0930. Probe out 0940. Moderate sedation was given. 4% Lidocaine was used for local oropharyngeal anesthesia. 1 mg of midazolam and 50 mcg of Fentanyl were administered during the study. There were no complications during the procedure. Based on abnormal findings of 2D echocardiogram, 3D was performed on an acquisition scanner for further assessment of the aortic valve. , RN [facility] MET[facility] (NA, K, CL, CO2, GLUCOSE, BUN, CREATININE, CA)2022-06-11 09:30:25 Test Item Value Reference Range Interpretation Comments NA (test code = 137 mmol/L 135-145 9973459618) K (test code = 4.3 mmol/L 3.5-5.0 0486598568) CL (test code = 104 mmol/L 98-108 3169866598) CO2 TOTAL (test code = 30 mmol/L 23-31 3784157104) AGAP (test code = 3 2-16 3234901871) BUN (test code = 19 mg/dL 7-23 8794683011) GLUCOSE (test code = 102 mg/dL 70-110 5888691222) CREATININE (test code = 0.93 mg/dL 0.50-1.04 4613906235) CALCIUM (test code = 8.5 mg/dL 8.6-10.6 L 2033193968) eGFR (test code = 59.8 mL/min/1.73m2 6382165114) ROBERT (test code = ROBERT) Association of [...] tests). Lab Interpretation Abnormal (test code = 97857-6) [facility] Test Item Value Reference Range Interpretation Comments MAGNESIUM (test code = 3484960578) 2.1 mg/dL 1.7-2.4 Lab Interpretation (test code = Normal 28728-9) [facility] / [id number] 09:18:08 Test Item Value Reference Range Interpretation Comments PROTIME PATIENT (test 19.8 See_Comment H [Auto mated message] code = 5964-2) The system [employer] generated this result transmitted ref erence range: 10.1 - 1 2.6 Seconds. The reference range was not used to int erpret this result as normal/abnormal . INR (test code = 6301-6) 1.8 Nor mal INR <1.1; Warfarin Therap eutic range 2.0 to 3. 0 or 2.5 to 3.5, dep ending upon the indica tions. Lab Interpretation (test Abnormal code = 06369-9) [facility]2023-[facility]-27 09:18:08 Test Item Value Reference Range Interpretation Comments APTT Patient (test code 89 See_Comment H [Au tomated message] = 3173-2) The system [employer] generated this result transmitted ref erence range: 26 - 36 Seconds. The reference range was not used to int erpret this result as normal/abnormal . Lab Interpretation (test Abnormal code = 79045-6) [facility] 08:57:55 Test Item Value Reference Range Interpretation Comments MAGNESIUM (test code = 9513012323) 1.8 mg/dL 1.7-2.4 Lab Interpretation (test code = Normal 40205-2) [facility] METABOLIC PANEL (NA, K, CL, CO2, GLUCOSE, BUN, CREATININE, CA)2022-06-10 08:57:55 Test Item Value Reference Range Interpretation Comments NA (test code = 137 mmol/L 135-145 0006185583) K (test code = 4.0 mmol/L 3.5-5.0 9688546472) CL (test code = 100 mmol/L 98-108 9447735048) CO2 TOTAL (test code = 32 mmol/L 23-31 H 7764138013) AGAP (test code = 5 2-16 1655845006) BUN (test code = 24 mg/dL 7-23 H 8563600101) GLUCOSE (test code = 116 mg/dL 70-110 H 2378549921) CREATININE (test code = 1.00 mg/dL 0.50-1.04 6474273764) CALCIUM (test code = 9.1 mg/dL 8.6-10.6 3926066268) eGFR (test code = 55.0 mL/min/1.73m2 6674007841) ROBERT (test code = ROBERT) Association of [...] tests). Lab Interpretation Abnormal (test code = 96270-4) [facility] / [id number] 08:46:38 Test Item Value Reference Range Interpretation [...] tions. Lab Interpretation (test Abnormal code = 82895-4) [facility]2023-[facility]-26 08:46:38 Test Item Value Reference Range Interpretation Comments APTT Patient (test code 85 See_Comment H [Au tomated message] = 3173-2) The system [employer] generated this result transmitted ref erence range: 26 - 36 Seconds. The reference range was not used to int erpret this result as normal/abnormal . Lab Interpretation (test Abnormal code = 11876-6) [facility] WITH [id number] 08:39:15 Test Item Value Reference Range Interpretation [...] (test code = 58.1 fL 39.0-49.9 H 12490-2) RDW-CV (test code = 16.1 % 12.0-15.5 H 788-0) PLT (test code = 197 See_Comment [Automated 777-3) message] The sy stem which generated this result transmitted reference range : 166 - 358 10*3/ ?L. The reference r tali was not used to interpret this result as normal/abnormal . MPV (test code = 10.2 fL 9.5-12.9 95576-6) NRBC/100 WBC (test 0.0 See_Comment [Automat ed code = 5207329834) message] The system which generated this result transmitted reference range : 0.0 - 10.0 /100 WBCs. The refer ence range was not u sed to interpret th is result as normal/abnormal . NRBC x10^3 (test code See_Comment [Auto mated = 6359720724) message] The s ystem which generated this result transmitted reference range : 10*3/?L. The reference range was not used to interpret this result as normal/abnormal . GRAN MAT (NEUT) % 58.4 % (test code = 770-8) IMM GRAN % (test code 0.20 % = 3366267936) LYMPH % (test code = 24.2 % 736-9) MONO % (test code = 10.9 % 5905-5) EOS % (test code = 5.5 % 713-8) BASO % (test code = 0.8 % 706-2) GRAN MAT x10^3(ANC) 2.77 10*3/uL 1.88-7.09 (test code = 4455615610) IMM GRAN x10^3 (test 0.00-0.06 code = 5592267463) LYMPH x10^3 (test code 1.15 10*3/uL 1.32-3.29 L = 731-0) MONO x10^3 (test code 0.52 10*3/uL 0.33-0.92 = 742-7) EOS x10^3 (test code = 0.26 10*3/uL 0.03-0.39 711-2) BASO x10^3 (test code 0.04 10*3/uL 0.01-0.07 = 704-7) Lab Interpretation Abnormal (test code = 77902-3) [facility] 10:39:27 Test Item Value Reference Range Interpretation Comments MAGNESIUM (test code = 1950730198) 1.6 mg/dL 1.7-2.4 L Lab Interpretation (test code = Abnormal 11837-9) [facility] (NA, K, CL, CO2, GLUCOSE, BUN, CREATININE, CA)2022-06-09 10:39:27 Test Item Value Reference Range Interpretation Comments NA (test code = 139 mmol/L 135-145 2493854816) K (test code = 4.1 mmol/L 3.5-5.0 5332994840) CL (test code = 96 mmol/L 98-108 L 8174028281) CO2 TOTAL (test code = 36 mmol/L 23-31 H 5161766706) AGAP (test code = 7 2-16 5990732657) BUN (test code = 27 mg/dL 7-23 H 1684617186) GLUCOSE (test code = 116 mg/dL 70-110 H 8421194955) CREATININE (test code = 1.21 mg/dL 0.50-1.04 H 7471823032) CALCIUM (test code = 9.3 mg/dL 8.6-10.6 8774306752) eGFR (test code = 44.1 mL/min/1.73m2 8574551075) ROBERT (test code = ROBERT) Association of [...] tests). Lab Interpretation Abnormal (test code = 23029-1) [facility] RegionalProthrombin Time / [id number] 10:26:27 Test Item Value Reference Range Interpretation Comments PROTIME PATIENT (test 18.7 See_Comment H [Auto mated message] code = 5964-2) The system [employer] ich generated this result transmitted ref erence range: 10.1 - 1 2.6 Seconds. The reference range was not used to int erpret this result as normal/abnormal . INR (test code = 6301-6) 1.7 Nor mal INR <1.1; Warfarin Therap eutic range 2.0 to 3. 0 or 2.5 to 3.5, dep ending upon the indica tions. Lab Interpretation (test Abnormal code = 52188-8) [facility]CB WITH [id number] 10:16:07 Test Item Value Reference Range Interpretation Comments WBC (test code = 7.65 See_Comment [Automated 3947-2) message] The sy stem which generated this result transmitted reference range : 4.30 - 11.10 10*3/?L. The reference range was not used to interpret this result as normal/abnormal . RBC (test code = 3.99 See_Comment [Automated 877-8) message] The sy stem which generated this [...] (test code = 58.8 fL 39.0-49.9 H 74307-5) RDW-CV (test code = 16.3 % 12.0-15.5 H 788-0) PLT (test code = 244 See_Comment [Automated 777-3) message] The sy stem which generated this result transmitted reference range : 166 - 358 10*3/ ?L. The reference r tali was not used to interpret this result as normal/abnormal . MPV (test code = 10.1 fL 9.5-12.9 39107-2) NRBC/100 WBC (test 0.0 See_Comment [Automat ed code = 0826659822) message] The system which generated this result transmitted reference range : 0.0 - 10.0 /100 WBCs. The refer ence range was not u sed to interpret th is result as normal/abnormal . NRBC x10^3 (test code See_Comment [Auto mated = 2076177751) message] The s ystem which generated this result transmitted reference range : 10*3/?L. The reference range was not used to interpret this result as normal/abnormal . GRAN MAT (NEUT) % 75.8 % (test code = 770-8) IMM GRAN % (test code 0.30 % = 2224078418) LYMPH % (test code = 12.5 % 736-9) MONO % (test code = 8.5 % 5905-5) EOS % (test code = 2.0 % 713-8) BASO % (test code = 0.9 % 706-2) GRAN MAT x10^3(ANC) 5.80 10*3/uL 1.88-7.09 (test code = 7231392985) IMM GRAN x10^3 (test 0.00-0.06 code = 1678059385) LYMPH x10^3 (test code 0.96 10*3/uL 1.32-3.29 L = 731-0) MONO x10^3 (test code 0.65 10*3/uL 0.33-0.92 = 742-7) EOS x10^3 (test code = 0.15 10*3/uL 0.03-0.39 711-2) BASO x10^3 (test code 0.07 10*3/uL 0.01-0.07 = 704-7) Lab Interpretation Abnormal (test code = 34679-4) [facility] RegionalTransthor[facility] echo (TTE)2022-06-07 21:12:16 Test Item Value Reference Range Interpretation Comments Height (test code = 63 in 8649790987) Weight (test code = 101 lbs 8136231999) Systolic BP (test code 127 mmHg = 6468469426) Diastolic BP (test code 43 mmHg = 7792008379) Heart Rate (test code = 50 bpm 3975519510) BSA (test code = 1.45 m2 9507641613) LVOT diameter (test 1.62 cm code = 6211176743) LVOT area (test code = 2.05 cm2 2516096799) Ao root diam (test code 2.34 cm = 1078057969) Aortic root (test code 2.34 cm = 2230132846) Ao root annulus (test 2.34 cm code = 8718574423) LA size (test code = 4.9 cm 4004319428) TR Peak Amrita (test code 209.0 cm/s = 5463755411) Triscuspid Valve 17.5 mmHg Regurgitation Peak Gradient (test code = 8653649673) PV REGURGITATION PEAK 8.9 mmHg GRADIENT (test code = 6141817810) PI dec slope (test code 81.30 cm/s2 = 3610301335) E wave decelartion time 0.26 s (test code = 0713993297) MV Peak A Amrita (test 58.0 cm/s code = 4754119929) MV Peak E Amrita (test 116.0 cm/s code = 5978642734) E/A ratio (test code = 2.00 ratio 6788382762) MR max PG (test code = 125.90 mm[Hg] 8017033881) MR max amrita (test code = 561.00 cm/s 4251473554) Mr max amrita (test code = 561.0 m/s 8443155839) MV Prop V (test code = 33.60 cm/s 1216459782) LAV(MOD-sp4) (test code 50.40 mL = 2492488117) MV E/e' septal (test 5.1 cm/s code = 5688039154) Tapse (test code = 1.37 cm 1712061491) LVOT stroke volume 42.60 cm3 (test code = 6488393169) LVOT peak amrita (test 96.3 cm/s code = 6702478064) LVOT mn grad (test code 1.6 mmHg = 0757822852) AV LVOT peak gradient 3.7 mmHg (test code = 7085444713) LVOT peak VTI (test 20.8 cm code = 7652385068) LV V1 mean (test code = 59.50 cm/s 5302658503) LA Volume Index (BP) 39.6 mL/m2 (test code = 4430332373) LA volume (BP) (test 57.2 mL code = 8393038501) LAV(MOD-sp2) (test code 59.90 mL = 4839023642) AV regurgitation 482.7 ms pressure 1/2 time (test code = 1854941404) AI dec slope (test code 212.30 cm/s2 = 3368777614) AI max amrita (test code = 349.90 cm/s 9723370452) AI max PG (test code = 49.00 mm[Hg] 1699029361) LVIDD (test code = 3.90 cm 6874432016) Left Ventricular End 66.7 mL Diastolic Volume by Teichholz Method (test code = 0971181) EF(Teich) (test code = 67.60 % 0283684806) FS (test code = 37 % 7564067747) EF - 2D (test code = 67.60 % 74872896) IVS (test code = 1.22 cm 3139485302) Interventricular Septum 1.22 cm Diastolic Thickness by 2D (test code = 6189755) LVPWD (test code = 1.12 cm 1904247398) PW (test code = 1.12 cm 0.6-1.7 5218302886) LVIDS (test code = 2.47 cm 3646591267) Left Ventricular End 21.6 mL Systolic Volume by Teichholz Method (test code = 7395810) Aortic valve mean 210.4 cm/s velocity (test code = 6412310516) Ao peak amrita (test code 307.4 cm/s = 8050155492) Ao VTI (test code = 68.2 cm 9949747838) AV area by cont VTI 0.6 cm2 (test code = 5740136433) AV area peak amrita (test 0.6 cm2 code = 6574447124) Ao max PG (test code = 37.80 mm[Hg] 5880128601) AV peak gradient (test 37.8 mmHg code = 9367381100) AV valve area (test 0.63 cm2 code = 8284399578) AV mean gradient (test 19.8 mmHg code = 9311494688) Radiology Study observation (narrative) (test code = 53032-2) ROBERT (test code = ROBERT) ?Left?Ventricle: Left [...] 2D, color flow Doppler and spectral Doppler. [facility]BAS[facility] [id number] 05:06:36 Test Item Value Reference Range Interpretation [...] not appl icable for dialysis patien ts Diagnostics Sales Developer ID - PIDYLAN [id number] 05:06:35 Test Item Value Reference Range Interpretation Comments MAGNESIUM (BEAKER) 1.7 mg/dL 1.6-2.6 Specimen slightly (test code = 627) hemolyzed Diagnostics Sales Developer ID - ARMAND LPROTHROMBIN TIME/[id number] 04:57:12 Test Item Value Reference Range Interpretation [...] mechanical heart valves.CBC W/PLT COUNT & AUTO [id number] 04:49:51 Test Item Value Reference Range Interpretation [...] 0.00-1.00 PERCENT (BEAKER) (test code = 2801) [id number] 10:05:40 Test Item Value Reference Range Interpretation Comments PARTIAL THROMBOPLASTIN TIME 49.3 seconds 22.5-36.0 H (BEAKER) (test code = 760) [id number] 07:34:27 Test Item Value Reference Range Interpretation Comments PARTIAL THROMBOPLASTIN TIME > seconds 22.5-36.0 HH (BEAKER) (test code = 760) [id number] 07:21:03 Test Item Value Reference Range Interpretation Comments MAGNESIUM (BEAKER) (test code = 2.0 mg/dL 1.6-2.6 627) Diagnostics Sales Developer ID - PIAYA LBASIC METABOLIC [id number] 07:21:02 Test Item Value Reference Range Interpretation [...] (test code = 697) EGFR (BEAKER) 87 Interpretati on of eGFR (test code = [...] not appl icable for dialysis patien ts Diagnostics Sales Developer ID - PIAYA LPROTHROMBIN TIME/[id number] 07:11:04 Test Item Value Reference Range Interpretation [...] mechanical heart valves.CBC W/PLT COUNT & AUTO [id number] 06:42:15 Test Item Value Reference Range Interpretation [...] 0.00-1.00 PERCENT (BEAKER) (test code = 2801) [id number] 01:06:03 Test Item Value Reference Range Interpretation Comments PARTIAL THROMBOPLASTIN TIME 90.3 seconds 22.5-36.0 H (BEAKER) (test code = 760) [id number] 23:34:15 Test Item Value Reference Range Interpretation Comments PARTIAL THROMBOPLASTIN TIME > seconds 22.5-36.0 HH (BEAKER) (test code = 760) [id number] 14:56:56 Test Item Value Reference Range Interpretation Comments PARTIAL THROMBOPLASTIN TIME 40.2 seconds 22.5-36.0 H (BEAKER) (test code = 760) [id number] 12:49:04 Test Item Value Reference Range Interpretation Comments PARTIAL THROMBOPLASTIN TIME 139.9 seconds 22.5-36.0 H (BEAKER) (test code = 760) [id number] 08:00:43 Test Item Value Reference Range Interpretation Comments MAGNESIUM (BEAKER) (test code = 1.5 mg/dL 1.6-2.6 L 627) Diagnostics Sales Developer ID - MARCOBASIC METABOLIC [id number] 08:00:42 Test Item Value Reference Range Interpretation [...] not appl icable for dialysis patien ts Diagnostics Sales Developer ID - [id number] 06:54:28 Test Item Value Reference Range Interpretation Comments PARTIAL THROMBOPLASTIN TIME 180.9 seconds 22.5-36.0 HH (BEAKER) (test code = 760) [id number] 06:30:25 Test Item Value Reference Range Interpretation Comments PARTIAL THROMBOPLASTIN TIME 61.3 seconds 22.5-36.0 H (BEAKER) (test code = 760) [id number] 04:16:14 Test Item Value Reference Range Interpretation Comments PARTIAL THROMBOPLASTIN TIME > seconds 22.5-36.0 HH (BEAKER) (test code = 760) PROTHROMBIN TIME/[id number] 03:42:33 Test Item Value Reference Range Interpretation [...] mechanical heart valves.CBC W/PLT COUNT & AUTO [id number] 03:35:52 Test Item Value Reference Range Interpretation [...] % 0.00-1.00 PERCENT (BEAKER) (test code = 280) [id number] 20:27:00 Test Item Value Reference Range Interpretation Comments PARTIAL THROMBOPLASTIN TIME 53.4 seconds 22.5-36.0 H (BEAKER) (test code = 760) [id number] 18:26:32 Test Item Value Reference Range Interpretation Comments PARTIAL THROMBOPLASTIN TIME 112.2 seconds 22.5-36.0 H (BEAKER) (test code = 760) [id number] 10:53:07 Test Item Value Reference Range Interpretation Comments PARTIAL THROMBOPLASTIN TIME 48.7 seconds 22.5-36.0 H (BEAKER) (test code = 760) [id number] 04:20:11 Test Item Value Reference Range Interpretation Comments PARTIAL THROMBOPLASTIN TIME 50.2 seconds 22.5-36.0 H (BEAKER) (test code = 760) [id number] 02:16:45 Test Item Value Reference Range Interpretation Comments PARTIAL THROMBOPLASTIN TIME 120.7 seconds 22.5-36.0 H (BEAKER) (test code = 760) [id number] 01:49:02 Test Item Value Reference Range Interpretation Comments MAGNESIUM (BEAKER) (test code = 1.7 mg/dL 1.6-2.6 627) Diagnostics Sales Developer ID - [id number] 01:49:02 Test Item Value Reference Range Interpretation Comments PHOSPHORUS (BEAKER) (test code = 4.7 mg/dL 2.3-4.7 604) Diagnostics Sales Developer ID - BSBASIC METABOLIC [id number] 01:49:01 Test Item Value Reference Range Interpretation [...] not appl icable for dialysis patien ts Diagnostics Sales Developer ID - BSPROTHROMBIN TIME/[id number] 01:46:19 Test Item Value Reference Range Interpretation [...] mechanical heart valves.CBC W/PLT COUNT & AUTO [id number] 01:29:16 Test Item Value Reference Range Interpretation [...] H PERCENT (BEAKER) (test code = 2801) [id number] 18:43:50 Test Item Value Reference Range Interpretation Comments PARTIAL THROMBOPLASTIN TIME 56.0 seconds 22.5-36.0 H (BEAKER) (test code = 760) [id number] 16:49:50 Test Item Value Reference Range Interpretation Comments PARTIAL THROMBOPLASTIN TIME 123.0 seconds 22.5-36.0 H (BEAKER) (test code = 760) [id number] 08:57:26 Test Item Value Reference Range Interpretation Comments PARTIAL THROMBOPLASTIN TIME 48.3 seconds 22.5-36.0 H (BEAKER) (test code = 760) [id number] 05:52:08 Test Item Value Reference Range Interpretation Comments PARTIAL THROMBOPLASTIN TIME 134.4 seconds 22.5-36.0 H (BEAKER) (test code = 760) PROTHROMBIN TIME/[id number] 05:18:02 Test Item Value Reference Range Interpretation Comments PROTIME (BEAKER) (test code = 14.1 seconds 11.9-14.2 759) INR (BEAKER) (test code = 370) 1.16 <=5.90 RECOMMENDED COUMADIN/WARFARIN INR THERAPY RANGESSTANDARD DOSE: 2.0 - 3.0 Includes: PROPHYLAXIS for venous thrombosis, systemic embolization; TREATMENT for venous thrombosis and/or pulmonary embolus.HIGH RISK: Target INR is 2.5-3.5 for patients with mechanical heart valves.[id number] 05:06:39 Test Item Value Reference Range Interpretation Comments PHOSPHORUS (BEAKER) (test code = 4.9 mg/dL 2.3-4.7 H 604) Diagnostics Sales Developer ID - BSBASIC METABOLIC [id number] 05:06:38 Test Item Value Reference Range Interpretation [...] not appl icable for dialysis patien ts Diagnostics Sales Developer ID - [id number] 05:06:38 Test Item Value Reference Range Interpretation Comments MAGNESIUM (BEAKER) (test code = 1.7 mg/dL 1.6-2.6 627) Diagnostics Sales Developer ID - BSCBC W/PLT COUNT & AUTO [id number] 04:48:51 Test Item Value Reference Range Interpretation [...] 0.00-1.00 PERCENT (BEAKER) (test code = 2801) [id number] 21:33:18 Test Item Value Reference Range Interpretation Comments PARTIAL THROMBOPLASTIN TIME 51.5 seconds 22.5-36.0 H (BEAKER) (test code = 760) HEMOGLOBIN AND [id number] 18:35:26 Test Item Value Reference Range Interpretation Comments HEMOGLOBIN (BEAKER) (test code = 9.5 GM/DL 11.2-15.7 L 410) HEMATOCRIT (BEAKER) (test code = 30.9 % 34.1-44.9 L 411) Diagnostics Sales Developer ID - [id number] 14:30:55 Test Item Value Reference Range Interpretation Comments PARTIAL THROMBOPLASTIN TIME 59.3 seconds 22.5-36.0 H (BEAKER) (test code = 760) [id number] 06:21:11 Test Item Value Reference Range Interpretation Comments PARTIAL THROMBOPLASTIN TIME 62.1 seconds 22.5-36.0 H (BEAKER) (test code = 760) PROTHROMBIN TIME/[id number] 03:22:14 Test Item Value Reference Range Interpretation Comments PROTIME (BEAKER) (test code = 14.8 seconds 11.9-14.2 H 759) INR (BEAKER) (test code = 370) 1.23 <=5.90 RECOMMENDED COUMADIN/WARFARIN INR THERAPY RANGESSTANDARD DOSE: 2.0 - 3.0 Includes: PROPHYLAXIS for venous thrombosis, systemic embolization; TREATMENT for venous thrombosis and/or pulmonary embolus.HIGH RISK: Target INR is 2.5-3.5 for patients with mechanical heart valves.[id number] 03:16:55 Test Item Value Reference Range Interpretation Comments MAGNESIUM (BEAKER) (test code = 2.2 mg/dL 1.6-2.6 627) Diagnostics Sales Developer ID - [id number] 03:16:55 Test Item Value Reference Range Interpretation Comments PHOSPHORUS (BEAKER) (test code = 3.8 mg/dL 2.3-4.7 604) Diagnostics Sales Developer ID - BSBASIC METABOLIC [id number] 03:16:54 Test Item Value Reference Range Interpretation [...] not appl icable for dialysis patien ts Diagnostics Sales Developer ID - BSCBC W/PLT COUNT & AUTO [id number] 02:57:48 Test Item Value Reference Range Interpretation [...] PERCENT (BEAKER) (test code = 2801) Prepare [id number] 23:54:00 Test Item Value Reference Range Interpretation Comments CROSSMATCH (test code = 2264) COMPATIBLE Unit ABO (test code = A Pos 6787508) UNIT NUMBER (test code = [id number] 934-0) Status (test code = 5385821) TX_TIMEINCHART Blood Bank Product (test code RED BLOOD CELLS = 2263) PRODUCT CODE (test code = T4116V07 933-2) [id number] 23:54:00 Test Item Value Reference Range Interpretation Comments CROSSMATCH (test code = 2264) COMPATIBLE Unit ABO (test code = A Pos 3699724) UNIT NUMBER (test code = [id number] 934-0) Status (test code = 0579859) TX_TIMEINCHART Blood Bank Product (test code RED BLOOD CELLS = 2263) PRODUCT CODE (test code = U2124R06 933-2) [facility] [id number] 23:54:00 Test Item Value Reference Range Interpretation Comments CROSSMATCH (test code = 2264) COMPATIBLE Unit ABO (test code = A Pos 7095230) UNIT NUMBER (test code = [id number] 934-0) Status (test code = 5771661) TX_TIMEINCHART Blood Bank Product (test code RED BLOOD CELLS = 2263) PRODUCT CODE (test code = G2597T29 933-2) [facility] [id number] 23:54:00 Test Item Value Reference Range Interpretation Comments CROSSMATCH (test code = 2264) COMPATIBLE Unit ABO (test code = A Pos 2843347) UNIT NUMBER (test code = [id number] 934-0) Status (test code = 4605075) TX_TIMEINCHART Blood Bank Product (test code RED BLOOD CELLS = 2263) PRODUCT CODE (test code = X6590Z49 933-2) [facility] [id number] 23:54:00 Test Item Value Reference Range Interpretation Comments CROSSMATCH (test code = 2264) COMPATIBLE Unit ABO (test code = A Pos 3397143) UNIT NUMBER (test code = [id number] 934-0) Status (test code = 2165161) TX_TIMEINCHART Blood Bank Product (test code RED BLOOD CELLS = 2263) PRODUCT CODE (test code = D2252Z04 933-2) [facility] [id number] 23:54:00 Test Item Value Reference Range Interpretation Comments CROSSMATCH (test code = 2264) COMPATIBLE Unit ABO (test code = A Pos 4483479) UNIT NUMBER (test code = [id number] 934-0) Status (test code = 6290680) TX_TIMEINCHART Blood Bank Product (test code RED BLOOD CELLS = 2263) PRODUCT CODE (test code = F4662X72 933-2) [facility] [id number] 21:46:53 Test Item Value Reference Range Interpretation Comments HEMOGLOBIN (BEAKER) (test code = 9.0 GM/DL 11.2-15.7 L 410) HEMATOCRIT (BEAKER) (test code = 30.5 % 34.1-44.9 L 411) Diagnostics Sales Developer ID - [id number] Echo W/Doppler(CW/PW/Color)2022-05-21 18:02:14Ejection FractionSLEH ECHO [facility] Echo W/Doppler(CW/PW/Color)2022-05-21 18:02:14Ejection FractionSLEH ECHO [facility]ARTLAB [facility] Echo W/Doppler(CW/PW/Color) 2022-05-21 18:02:14Ejection FractionSLEH ECHO [facility] Echo W/Doppler(CW/PW/Color)2022-05-21 18:02:14[facility] W/Doppler(CW/PW/Color)2022-05-21 18:02:14Ejection [facility]SLE [facility] W/Doppler(CW/PW/Color) 2022-05-21 18:02:14Ejection FractionSLE [facility]CHO [facility] 15:07:17 Test Item Value Reference Range Interpretation Comments PARTIAL THROMBOPLASTIN TIME 68.4 seconds 22.5-36.0 H (BEAKER) (test code = 760) PROTHROMBIN TIME/[id number] 15:05:56 Test Item Value Reference Range Interpretation Comments PROTIME (BEAKER) (test code = 15.5 seconds 11.9-14.2 H 759) INR (BEAKER) (test code = 370) 1.31 <=5.90 RECOMMENDED COUMADIN/WARFARIN INR THERAPY RANGESSTANDARD DOSE: 2.0 - 3.0 Includes: PROPHYLAXIS for venous thrombosis, systemic embolization; TREATMENT for venous thrombosis and/or pulmonary embolus.HIGH RISK: Target INR is 2.5-3.5 for patients with mechanical heart valves.TSH/FREE T4 IF [id number] 13:50:00 Test Item Value Reference Range Interpretation Comments THYROID STIMULATING HORMONE 1.746 uIU/mL 0.350-4.940 (BEAKER) (test code = 772) Diagnostics Sales Developer ID - ARMAND LHEMOGLOBIN AND [id number] 13:00:10 Test Item Value Reference Range Interpretation Comments HEMOGLOBIN (BEAKER) (test code = 9.0 GM/DL 11.2-15.7 L 410) HEMATOCRIT (BEAKER) (test code = 29.3 % 34.1-44.9 L 411) Diagnostics Sales Developer ID - [id number] 08:55:39 Test Item Value Reference Range Interpretation Comments PARTIAL THROMBOPLASTIN TIME 70.0 seconds 22.5-36.0 H (BEAKER) (test code = 760) [id number] 05:39:20 Test Item Value Reference Range Interpretation Comments PHOSPHORUS (BEAKER) (test code = 3.3 mg/dL 2.3-4.7 604) Diagnostics Sales Developer ID - MARCOBASIC METABOLIC [id number] 05:39:19 Test Item Value Reference Range Interpretation [...] glom erular filtration rate . Estimated GFR i s not applicable for dialysis patients Diagnostics Sales Developer ID - [id number] 05:39:19 Test Item Value Reference Range Interpretation Comments MAGNESIUM (BEAKER) (test code = 1.6 mg/dL 1.6-2.6 627) Diagnostics Sales Developer ID - MARCOCBC W/PLT COUNT & AUTO [id number] 05:18:48 Test Item Value Reference Range Interpretation [...] 0.00-1.00 PERCENT (BEAKER) (test code = 2801) [id number] 01:34:38 Test Item Value Reference Range Interpretation Comments PARTIAL THROMBOPLASTIN TIME 94.3 seconds 22.5-36.0 H (BEAKER) (test code = 760) PROTHROMBIN TIME/[id number] 01:32:54 Test Item Value Reference Range Interpretation Comments PROTIME (BEAKER) (test code = 15.8 seconds 11.9-14.2 H 759) INR (BEAKER) (test code = 370) 1.35 <=5.90 RECOMMENDED COUMADIN/WARFARIN INR THERAPY RANGESSTANDARD DOSE: 2.0 - 3.0 Includes: PROPHYLAXIS for venous thrombosis, systemic embolization; TREATMENT for venous thrombosis and/or pulmonary embolus.HIGH RISK: Target INR is 2.5-3.5 for patients with mechanical heart valves.HEMOGLOBIN AND [id number] 20:48:52 Test Item Value Reference Range Interpretation Comments HEMOGLOBIN (BEAKER) (test code = 8.6 GM/DL 11.2-15.7 L 410) HEMATOCRIT (BEAKER) (test code = 27.9 % 34.1-44.9 L 411) Diagnostics Sales Developer ID - [id number] 17:34:13 Test Item Value Reference Range Interpretation Comments PARTIAL THROMBOPLASTIN TIME 53.7 seconds 22.5-36.0 H (BEAKER) (test code = 760) PROTHROMBIN TIME/[id number] 17:33:32 Test Item Value Reference Range Interpretation Comments PROTIME (BEAKER) (test code = 16.0 seconds 11.9-14.2 H 759) INR (BEAKER) (test code = 370) 1.37 <=5.90 RECOMMENDED COUMADIN/WARFARIN INR THERAPY RANGESSTANDARD DOSE: 2.0 - 3.0 Includes: PROPHYLAXIS for venous thrombosis, systemic embolization; TREATMENT for venous thrombosis and/or pulmonary embolus.HIGH RISK: Target INR is 2.5-3.5 for patients with mechanical heart valves.[id number] 13:24:26 Test Item Value Reference Range Interpretation Comments PARTIAL THROMBOPLASTIN TIME 70.7 seconds 22.5-36.0 H (BEAKER) (test code = 760) HEMOGLOBIN AND [id number] 13:10:45 Test Item Value Reference Range Interpretation Comments HEMOGLOBIN (BEAKER) (test code = 8.4 GM/DL 11.2-15.7 L 410) HEMATOCRIT (BEAKER) (test code = 27.0 % 34.1-44.9 L 411) Diagnostics Sales Developer ID - [id number] 08:19:00 Test Item Value Reference Range Interpretation Comments CROSSMATCH (test code = 2264) COMPATIBLE Unit ABO (test code = A Pos [id number]) UNIT NUMBER (test code = [id number] 934-0) Status (test code = 1173714) ISSUED Blood Bank Product (test code RED BLOOD CELLS = 2263) PRODUCT CODE (test code = [id number] 933-2) [id number] 08:19:00 Test Item Value Reference Range Interpretation Comments CROSSMATCH (test code = 2264) COMPATIBLE Unit ABO (test code = A Pos [id number]) UNIT NUMBER (test code = [id number] 934-0) Status (test code = 0415541) ISSUED Blood Bank Product (test code RED BLOOD CELLS = 2263) PRODUCT CODE (test code = S3441F37 933-2) [facility]24 Test Item Value Reference Range Interpretation Comments PARTIAL THROMBOPLASTIN TIME 91.6 seconds 22.5-36.0 H (BEAKER) (test code = 760) [id number] 04:22:23 Test Item Value Reference Range Interpretation Comments MAGNESIUM (BEAKER) (test code = 1.8 mg/dL 1.6-2.6 627) Diagnostics Sales Developer ID - ARMAND [id number] 04:22:23 Test Item Value Reference Range Interpretation Comments PHOSPHORUS (BEAKER) (test code = 4.1 mg/dL 2.3-4.7 604) Diagnostics Sales Developer ID - ARMAND LBASIC METABOLIC [id number] 04:22:22 Test Item Value Reference Range Interpretation [...] not appl icable for dialysis patien ts Diagnostics Sales Developer ID - ARMAND LPROTHROMBIN TIME/[id number] 03:58:55 Test Item Value Reference Range Interpretation [...] mechanical heart valves.CBC W/PLT COUNT & AUTO [id number] 03:54:23 Test Item Value Reference Range Interpretation [...] 0.00-1.00 PERCENT (BEAKER) (test code = 2801) [id number] 23:23:33 Test Item Value Reference Range Interpretation Comments PARTIAL THROMBOPLASTIN TIME 63.2 seconds 22.5-36.0 H (BEAKER) (test code = 760) HEMOGLOBIN AND [id number] 21:26:00 Test Item Value Reference Range Interpretation Comments HEMOGLOBIN (BEAKER) (test code = 7.6 GM/DL 11.2-15.7 L 410) HEMATOCRIT (BEAKER) (test code = 24.8 % 34.1-44.9 L 411) Diagnostics Sales Developer ID - [id number] 17:30:54 Test Item Value Reference Range Interpretation Comments PARTIAL THROMBOPLASTIN TIME 37.0 seconds 22.5-36.0 H (BEAKER) (test code = 760) PROTHROMBIN TIME/[id number] 17:29:53 Test Item Value Reference Range Interpretation Comments PROTIME (BEAKER) (test code = 18.3 seconds 11.9-14.2 H 759) INR (BEAKER) (test code = 370) 1.62 <=5.90 RECOMMENDED COUMADIN/WARFARIN INR THERAPY RANGESSTANDARD DOSE: 2.0 - 3.0 Includes: PROPHYLAXIS for venous thrombosis, systemic embolization; TREATMENT for venous thrombosis and/or pulmonary embolus.HIGH RISK: Target INR is 2.5-3.5 for patients with mechanical heart valves.PROTHROMBIN TIME/[id number] 12:31:00 Test Item Value Reference Range Interpretation Comments PROTIME (BEAKER) (test code = 18.7 seconds 11.9-14.2 H 759) INR (BEAKER) (test code = 370) 1.61 <=5.90 RECOMMENDED COUMADIN/WARFARIN INR THERAPY RANGESSTANDARD DOSE: 2.0 - 3.0 Includes: PROPHYLAXIS for venous thrombosis, systemic embolization; TREATMENT for venous thrombosis and/or pulmonary embolus.HIGH RISK: Target INR is 2.5-3.5 for patients with mechanical heart valves.HEMOGLOBIN AND [id number] 12:24:20 Test Item Value Reference Range Interpretation Comments HEMOGLOBIN (BEAKER) (test code = 7.4 GM/DL 11.2-15.7 L 410) HEMATOCRIT (BEAKER) (test code = 23.7 % 34.1-44.9 L 411) Diagnostics Sales Developer ID - [id number]-Glucose [id number] 05:40:23 Test Item Value Reference Range Interpretation Comments POC-Glucose Meter (test 78 mg/dL 70-110 : TE STED AT [facility] code = 1538) [address] [place] [address], [facility] 30: Diagnostics Sales Developer/Techni valarie ID = [id number] for Yumi, James Lab Interpretation (test Normal code = 93962-9) [facility] [id number] 05:40:23 Test Item Value Reference Range Interpretation Comments POC-Glucose Meter (test 78 mg/dL 70-110 : TE STED AT [facility] code = 1538) [address] [place] [address], [facility] 30: Diagnostics Sales Developer/Techni valarie ID = [id number] for Yumi, James Lab Interpretation (test Normal code = 72498-9) [facility]-Glucose [id number] 05:40:23 Test Item Value Reference Range Interpretation Comments POC-Glucose Meter (test 78 mg/dL 70-110 : TE STED AT [facility] code = 1538) [address] [place] [address], [facility] 30: Diagnostics Sales Developer/Techni valarie ID = [id number] for Yumi, James Lab Interpretation (test Normal code = 20432-7) [facility] [id number] 05:40:23 Test Item Value Reference Range Interpretation Comments POC-Glucose Meter (test 78 mg/dL 70-110 : TE STED AT [facility] code = 1538) [address] [place] [address], [facility] 30: Diagnostics Sales Developer/Techni valarie ID = [id number] for Yumi, James Lab Interpretation (test Normal code = 66654-1) [facility] [id number] 05:40:23 Test Item Value Reference Range Interpretation Comments POC-Glucose Meter (test 78 mg/dL 70-110 : TE STED AT [facility] code = 1538) [address] [place] [address], 770 30: Diagnostics Sales Developer/Techni valarie ID = [id number] for James Eason Lab Interpretation (test Normal code = 69090-4) [facility]-Glucose [id number] 05:40:23 Test Item Value Reference Range Interpretation Comments POC-Glucose Meter (test 78 mg/dL 70-110 : TE STED AT [facility] code = 1538) [address] [place] [address], 770 30: Diagnostics Sales Developer/Techni valarie ID = [id number] for YumiJames chirinos Lab Interpretation (test Normal code = 77278-0) [facility]-Glucose [id number] 05:40:23 Test Item Value Reference Range Interpretation Comments POC-Glucose Meter (test 78 mg/dL 70-110 : TE STED AT [facility] code = 1538) [address] [place] [address], 770 30: Diagnostics Sales Developer/Techni valarie ID = [id number] for YumiJames chirinos Lab Interpretation (test Normal code = 53095-0) [facility]-Glucose [id number] 05:40:23 Test Item Value Reference Range Interpretation Comments POC-Glucose Meter (test 78 mg/dL 70-110 : TE STED AT [facility] code = 1538) [address] [place] [address], 770 30: Diagnostics Sales Developer/Techni valarie ID = [id number] for James Eason Lab Interpretation (test Normal code = 70094-7) [facility]-GLUCOSE [id number] 05:40:23 Test Item Value Reference Range Interpretation Comments POC-GLUCOSE METER 78 mg/dL 70-110 : TESTED A T [facility] 6720 (BEAKER) (test code = [facility], 1538) [address]: Diagnostics Sales Developer/Techni valarie ID = [id number] for James Cisneros [id number] 04:23:09 Test Item Value Reference Range Interpretation Comments MAGNESIUM (BEAKER) (test code = 2.1 mg/dL 1.6-2.6 627) Diagnostics Sales Developer ID - NIMOAYA [id number] 04:23:09 Test Item Value Reference Range Interpretation Comments PHOSPHORUS (BEAKER) (test code = 1.9 mg/dL 2.3-4.7 L 604) Diagnostics Sales Developer RASHAAD ACUNA LBASIC METABOLIC [id number] 04:23:08 Test Item Value Reference Range Interpretation [...] not appl icable for dialysis patien ts Diagnostics Sales Developer ID - ARMAND LPROTHROMBIN TIME/[id number] 04:07:24 Test Item Value Reference Range Interpretation [...] mechanical heart valves.CBC W/PLT COUNT & AUTO [id number] 04:00:27 Test Item Value Reference Range Interpretation [...] PERCENT (BEAKER) (test code = 2801) POCT-GLUCOSE [id number] 23:14:02 Test Item Value Reference Range Interpretation Comments POC-GLUCOSE METER 86 mg/dL 70-110 : TESTED A T [facility] 6720 (AKER) (test code = JOSELITO Franco [place], 1538) [address]: Diagnostics Sales Developer/Techni valarie ID = [id number] for Robles Hanson BUN AND CREATININE W/[id number] 21:02:50 Test Item Value Reference Range Interpretation Comments BLOOD UREA 10 mg/dL 7-21 NITROGEN (BEAKER) (test code = 354) CREATININE 0.79 mg/dL 0.57-1.25 (BEAKER) (test code = 358) BUN/CREAT RATIO 13 For a normal individual on ([facility]) (test a normal diet , the code = reference inter [place] for the [id number]) mass ratio rang es between 12:1 and 20:1 ( BUN in mg/dL/creatinin e in mg/dL) EGFR (AKER) 81 Interpretatio n of eGFR (test code [...] not appl icable for dialysis patien ts Diagnostics Sales Developer ID - [id number] 21:02:49 Test Item Value Reference Range Interpretation Comments MAGNESIUM (BEAKER) (test code = 2.1 mg/dL 1.6-2.6 627) Diagnostics Sales Developer ID - [id number] 21:02:49 Test Item Value Reference Range Interpretation Comments POTASSIUM (BEAKER) (test code = 3.7 meq/L 3.5-5.1 379) Diagnostics Sales Developer ID - BSHEMOGLOBIN AND [id number] 20:18:40 Test Item Value Reference Range Interpretation Comments HEMOGLOBIN (BEAKER) (test code = 7.5 GM/DL 11.2-15.7 L 410) HEMATOCRIT (BEAKER) (test code = 23.4 % 34.1-44.9 L 411) Diagnostics Sales Developer ID - [id number], CTA [id number] 19:41:00Unlisted Reason for Exam - Click Yes and Enter Reason Below->YesUnlisted Reason for Exam->Looking for mesenteric ischemia. [facility] 1955 Sex: FFINAL REPORT [...] Goff MDReport Verified Date/Time: 05/18/2022 19:41:16 POCT-GLUCOSE [id number] 19:08:28 Test Item Value Reference Range Interpretation Comments POC-GLUCOSE METER 91 mg/dL 70-110 : TESTED A T [facility] 6720 (JIM) (test code = JOSELITO Franco [facility], 1538) [address]: Diagnostics Sales Developer/Techni valarie ID = [id number] for McAl Scarlet nunes HIGH SENSITIVITY TROPONIN [id number] 16:22:26 Test Item Value Reference Range Interpretation Comments HIGH SENSITIVITY TROPONIN I (test 9 pg/ml <=17 code = 3481703) Diagnostics Sales Developer ID - BSThe [employer]ING EDITOR STAT High Sensitivity Troponin-I results should be used in conjunctionwith other diagnostic information such as ECG, clinical observations and information, and patient symptoms to aid in the diagnosis of [place].Urinalysis w/Microscopic + Reflex to [id number] 16:12:56 Test Item Value Reference Range Interpretation Comments Color, UA (test code Yellow = 5778-6) Clarity, UA (test Hazy code = 5767-9) Specific [place], UA 1.045 1.001-1.035 H (test code = 5811-5) pH, UA (test code = 6.5 5.0-8.0 5803-2) Protein, UA (test 20 mg/dL Negative A code = 56186-8) Glucose, UA (test Negative Negative code = 365) Ketones, UA (test Negative Negative code = 2514-8) Bilirubin, UA (test Negative Negative code = 20454-1) Blood, UA (test code Moderate Negative A = 21994-5) Nitrite, UA (test Negative Negative code = 5802-4) Leukocytes, UA (test Large Negative A code = 5799-2) Urobilinogen, UA 0.2 0.2-1.0 (test code = 59642-5) RBC, UA (test code = 34 See_Comment [Autom ated 72566-1) message] The system which generated this result [...] . Bacteria, UA (test Few code = 45358-1) Squam Epithel, UA <1 See_Comment [Automate d (test code = 37411-3) messag e] The system which generated this result transmit bandar reference range : /HPF. The reference range was not used to interpret this result as normal/abnormal . Specimen Source (test code = 2795) ROBERT (test code = ROBERT) Diagnostics Sales Developer ID - [auto]Diagnostics Sales Developer ID - tech Lab Interpretation Abnormal (test code = 23875-4) [facility] Reflex to Culture 2022-05-18 16:12:56 Test Item Value Reference Range Interpretation Comments Color, UA (test code Yellow = 5778-6) Clarity, UA (test Hazy code = 5767-9) Specific [place], UA 1.045 1.001-1.035 H (test code = 5811-5) pH, UA (test code = 6.5 5.0-8.0 5803-2) Protein, UA (test 20 mg/dL Negative A code = 40513-4) Glucose, UA (test Negative Negative code = 365) Ketones, UA (test Negative Negative code = 2514-8) Bilirubin, UA (test Negative Negative code = 50241-0) Blood, UA (test code Moderate Negative A = 90705-6) Nitrite, UA (test Negative Negative code = 5802-4) Leukocytes, UA (test Large Negative A code = 5799-2) Urobilinogen, UA 0.2 0.2-1.0 (test code = 39692-9) RBC, UA (test code = 34 See_Comment [Autom ated 57199-1) message] The system which generated this result [...] . Bacteria, UA (test Few code = 16031-8) Squam Epithel, UA <1 See_Comment [Automate d (test code = 75259-0) messag e] The system which generated this result transmit bandar reference range : /HPF. The reference range was not used to interpret this result as normal/abnormal . Specimen Source (test code = 2795) ROBERT (test code = ROBERT) Diagnostics Sales Developer ID - [auto]Diagnostics Sales Developer ID - tech Lab Interpretation Abnormal (test code = 33088-4) [facility] Reflex to Culture 2022-05-18 16:12:56 Test Item Value Reference Range Interpretation Comments Color, UA (test code Yellow = 5778-6) Clarity, UA (test Hazy code = 5767-9) Specific [place], UA 1.045 1.001-1.035 H (test code = 5811-5) pH, UA (test code = 6.5 5.0-8.0 5803-2) Protein, UA (test 20 mg/dL Negative A code = 13221-7) Glucose, UA (test Negative Negative code = 365) Ketones, UA (test Negative Negative code = 2514-8) Bilirubin, UA (test Negative Negative code = 38105-0) Blood, UA (test code Moderate Negative A = 80014-6) Nitrite, UA (test Negative Negative code = 5802-4) Leukocytes, UA (test Large Negative A code = 5799-2) Urobilinogen, UA 0.2 0.2-1.0 (test code = 25338-7) RBC, UA (test code = 34 See_Comment [Autom ated 57812-2) message] The system which generated this result [...] . Bacteria, UA (test Few code = 84619-4) Squam Epithel, UA <1 See_Comment [Automate d (test code = 16458-4) messag e] The system which generated this result transmit bandar reference range : /HPF. The reference range was not used to interpret this result as normal/abnormal . Specimen Source (test code = 2795) ROBERT (test code = ROBERT) Diagnostics Sales Developer ID - [auto]Diagnostics Sales Developer ID - tech Lab Interpretation Abnormal (test code = 87320-8) [facility] Reflex to Culture 2022-05-18 16:12:56 Test Item Value Reference Range Interpretation Comments Color, UA (test code Yellow = 5778-6) Clarity, UA (test Hazy code = 5767-9) Specific [place], UA 1.045 1.001-1.035 H (test code = 5811-5) pH, UA (test code = 6.5 5.0-8.0 5803-2) Protein, UA (test 20 mg/dL Negative A code = 69579-5) Glucose, UA (test Negative Negative code = 365) Ketones, UA (test Negative Negative code = 2514-8) Bilirubin, UA (test Negative Negative code = 10373-5) Blood, UA (test code Moderate Negative A = 80475-1) Nitrite, UA (test Negative Negative code = 5802-4) Leukocytes, UA (test Large Negative A code = 5799-2) Urobilinogen, UA 0.2 0.2-1.0 (test code = 29523-7) RBC, UA (test code = 34 See_Comment [Autom ated 83854-9) message] The system which generated this result [...] . Bacteria, UA (test Few code = 33820-3) Squam Epithel, UA <1 See_Comment [Automate d (test code = 00597-1) messag e] The system which generated this result transmit bandar reference range : /HPF. The reference range was not used to interpret this result as normal/abnormal . Specimen Source (test code = 2795) ROBERT (test code = ROBERT) Diagnostics Sales Developer ID - [auto]Diagnostics Sales Developer ID - tech Lab Interpretation Abnormal (test code = 93129-6) [facility] Reflex to Culture 2022-05-18 16:12:56 Test Item Value Reference Range Interpretation Comments Color, UA (test code Yellow = 5778-6) Clarity, UA (test Hazy code = 5767-9) Specific [place], UA 1.045 1.001-1.035 H (test code = 5811-5) pH, UA (test code = 6.5 5.0-8.0 5803-2) Protein, UA (test 20 mg/dL Negative A code = 11604-5) Glucose, UA (test Negative Negative code = 365) Ketones, UA (test Negative Negative code = 2514-8) Bilirubin, UA (test Negative Negative code = 40325-6) Blood, UA (test code Moderate Negative A = 85125-8) Nitrite, UA (test Negative Negative code = 5802-4) Leukocytes, UA (test Large Negative A code = 5799-2) Urobilinogen, UA 0.2 0.2-1.0 (test code = 67799-3) RBC, UA (test code = 34 See_Comment [Autom ated 33101-4) message] The system which generated this result [...] . Bacteria, UA (test Few code = 40045-1) Squam Epithel, UA <1 See_Comment [Automate d (test code = 17366-9) messag e] The system which generated this result transmit bandar reference range : /HPF. The reference range was not used to interpret this result as normal/abnormal . Specimen Source (test code = 2795) ROBERT (test code = ROBERT) Diagnostics Sales Developer ID - [auto]Diagnostics Sales Developer ID - tech Lab Interpretation Abnormal (test code = 01086-5) [facility] + Reflex to Culture 2022-05-18 16:12:56 Test Item Value Reference Range Interpretation Comments Color, UA (test code Yellow = 5778-6) Clarity, UA (test Hazy code = 5767-9) Specific [place], UA 1.045 1.001-1.035 H (test code = 5811-5) pH, UA (test code = 6.5 5.0-8.0 5803-2) Protein, UA (test 20 mg/dL Negative A code = 97297-9) Glucose, UA (test Negative Negative code = 365) Ketones, UA (test Negative Negative code = 2514-8) Bilirubin, UA (test Negative Negative code = 38130-5) Blood, UA (test code Moderate Negative A = 75855-7) Nitrite, UA (test Negative Negative code = 5802-4) Leukocytes, UA (test Large Negative A code = 5799-2) Urobilinogen, UA 0.2 0.2-1.0 (test code = 99456-3) RBC, UA (test code = 34 See_Comment [Autom ated 56314-9) message] The system which generated this result [...] . Bacteria, UA (test Few code = 65424-8) Squam Epithel, UA See_Comment [Automate d (test code = 61324-0) messag e] The system which generated this result transmit bandar reference range : /HPF. The reference range was not used to interpret this result as normal/abnormal . Specimen Source (test code = 2795) ROBERT (test code = ROBERT) Diagnostics Sales Developer ID - [auto]Diagnostics Sales Developer ID - tech Lab Interpretation Abnormal (test code = 16614-1) [facility] + Reflex to Culture 2022-05-18 16:12:56 Test Item Value Reference Range Interpretation Comments Color, UA (test code Yellow = 5778-6) Clarity, UA (test Hazy code = 5767-9) Specific [place], UA 1.045 1.001-1.035 H (test code = 5811-5) pH, UA (test code = 6.5 5.0-8.0 5803-2) Protein, UA (test 20 mg/dL Negative A code = 05347-9) Glucose, UA (test Negative Negative code = 365) Ketones, UA (test Negative Negative code = 2514-8) Bilirubin, UA (test Negative Negative code = 40969-5) Blood, UA (test code Moderate Negative A = 36450-2) Nitrite, UA (test Negative Negative code = 5802-4) Leukocytes, UA (test Large Negative A code = 5799-2) Urobilinogen, UA 0.2 0.2-1.0 (test code = 96298-2) RBC, UA (test code = 34 See_Comment [Autom ated 99598-1) message] The system which generated this result [...] . Bacteria, UA (test Few code = 77083-2) Squam Epithel, UA See_Comment [Automate d (test code = 03506-8) messag e] The system which generated this result transmit bandar reference range : /HPF. The reference range was not used to interpret this result as normal/abnormal . Specimen Source (test code = 2795) ROBERT (test code = ROBERT) Diagnostics Sales Developer ID - [auto]Diagnostics Sales Developer ID - tech Lab Interpretation Abnormal (test code = 25994-1) [facility] + Reflex to Culture 2022-05-18 16:12:56 Test Item Value Reference Range Interpretation Comments Color, UA (test code Yellow = 5778-6) Clarity, UA (test Hazy code = 5767-9) Specific [place], UA 1.045 1.001-1.035 H (test code = 5811-5) pH, UA (test code = 6.5 5.0-8.0 5803-2) Protein, UA (test 20 mg/dL Negative A code = 72581-9) Glucose, UA (test Negative Negative code = 365) Ketones, UA (test Negative Negative code = 2514-8) Bilirubin, UA (test Negative Negative code = 40632-1) Blood, UA (test code Moderate Negative A = 84922-5) Nitrite, UA (test Negative Negative code = 5802-4) Leukocytes, UA (test Large Negative A code = 5799-2) Urobilinogen, UA 0.2 0.2-1.0 (test code = 46963-4) RBC, UA (test code = 34 See_Comment [Autom ated 88682-1) message] The system which generated this result [...] . Bacteria, UA (test Few code = 30898-2) Squam Epithel, UA See_Comment [Automate d (test code = 88183-5) messag e] The system which generated this result transmit bandar reference range : /HPF. The reference range was not used to interpret this result as normal/abnormal . Specimen Source (test code = 2795) ROBERT (test code = ROBERT) Diagnostics Sales Developer ID - [auto]Diagnostics Sales Developer ID - tech Lab Interpretation Abnormal (test code = 66349-9) [facility] [id number] 16:12:56 Test Item Value Reference Range Interpretation [...] = 516) SOURCE(BEAKER) (test code = 2795) Diagnostics Sales Developer ID - [auto]Diagnostics Sales Developer ID - techPROTHROMBIN TIME/[id number] 16:02:01 Test Item Value Reference Range Interpretation Comments PROTIME (BEAKER) (test code = 25.8 seconds 11.9-14.2 H 759) INR (BEAKER) (test code = 370) 2.54 <=5.90 RECOMMENDED COUMADIN/WARFARIN INR THERAPY RANGESSTANDARD DOSE: 2.0 - 3.0 Includes: PROPHYLAXIS for venous thrombosis, systemic embolization; TREATMENT for venous thrombosis and/or pulmonary embolus.HIGH RISK: Target INR is 2.5-3.5 for patients with mechanical heart valves.CALCIUM, [id number] 13:31:38 Test Item Value Reference Range Interpretation [...] 0-0 (BEAKER) (test code = 413) POCT-GLUCOSE [id number] 13:07:25 Test Item Value Reference Range Interpretation Comments POC-GLUCOSE METER 81 mg/dL 70-110 : TESTED A T [facility] 6720 (BEAKER) (test code = [place]ITO [place], 1538) [address]: Diagnostics Sales Developer/Techni valarie ID = [id number] for Scarlet Maravilla B-TYPE NATRIURETIC FACTOR (BNP)2022-05-18 11:38:06 Test Item Value Reference Range Interpretation Comments B-TYPE NATRIURETIC PEPTIDE (BEAKER) 97 pg/mL 0-100 (test code = 700) Diagnostics Sales Developer ID - FANTASMA [id number] 11:34:39 Test Item Value Reference Range Interpretation Comments FIBRINOGEN LEVEL (BEAKER) (test 440 mg/dl 225-434 H code = 658) [id number] 11:32:28 Test Item Value Reference Range Interpretation Comments LIPASE (BEAKER) (test code = 749) 13 U/L 8-78 Diagnostics Sales Developer ID - FANTASMA BCOMPREHENSIVE METABOLIC [id number] 11:32:27 Test Item Value Reference Range Interpretation [...] St age Description sq m Result G1 Norm al or [...] not appl icable for dialysis patien ts Diagnostics Sales Developer ID - FANTASMA MLYJWPZJLY9705-17-01 11:32:27 Test Item Value Reference Range Interpretation Comments MAGNESIUM (BEAKER) (test code = 1.7 mg/dL 1.6-2.6 627) Diagnostics Sales Developer ID - FANTASMA [id number] 11:32:27 Test Item Value Reference Range Interpretation Comments PHOSPHORUS (BEAKER) (test code = 2.9 mg/dL 2.3-4.7 604) Diagnostics Sales Developer ID - FANTASMA BPT/[id number] 11:21:21 Test Item Value Reference Range Interpretation [...] for patients with mechanical heart valves.LACTIC ACID, [id number] 11:20:59 Test Item Value Reference Range Interpretation Comments LACTATE BLOOD VENOUS (2) (BEAKER) 1.40 mmol/L 0.50-2.20 (test code = 2872) Diagnostics Sales Developer ID - FANTASMA Fredy"
[2022-11-01] MEDS ORDERED: CYCLOBENZAPRINE 10 MG TAB ONE (19:31)
[2022-11-01] MEDS ORDERED: NITROGLYCERIN 0.4 MG/TAB SL ONE (19:31)
[2022-11-01 19:42] LABS: Absolute Lymphocytes (CBC) 1.1 K/uL (0.7-4.9); Hematocrit 29.4 % (36.0-45.0); Lymphocytes % 21.3 % (15.3-44.8); MCV 87.5 fL (80-100); MPV 9.3 fL (7.6-11.3); RBC Red Blood Cell Count 3.36 M/uL (3.86-4.86)
--- NOTE | 2022-11-01 19:51 | RAD REPORT ---
EXAM DESCRIPTION: RAD - Chest Single View - 11/01/2022 7:27 pm CLINICAL HISTORY: CHEST PAIN Chest pain. COMPARISON: Chest Single View dated 10/14/2022; Chest Single View dated 09/08/2022; Chest Single View d ated 08/24/2022; Chest Single View dated 08/21/2022 FINDINGS: Portable technique limits examination quality. The lungs are emphysematous but grossly clear. The heart is moderately enlarged. Aortic atheroscleros is.Sternotomy wires present.
[2022-11-01 20:00] LABS: Albumin 3.7 g/dL (3.4-5.0); Bilirubin Direct 0.1 mg/dL (0-0.2); Bilirubin Indirect, Calculated 0.4 mg/dL (0.2-0.8); Bilirubin Total 0.5 mg/dL (0.2-1.0); Protein, Total 6.9 g/dL (6.4-8.2)
[2022-11-01 20:12] LABS: Protime INR 1.56
--- NOTE | 2022-11-01 20:43 | EDPHYS ---
Physician Documentation [facility] Name: Michelle Saavedra Age: 67 yrs Sex: Female : 1955 Arrival Date: 11/01/2022 Time: 18:37 Bed 20 Private MD: ED Physician Eugene Dooley HPI: 11/01 21:01 This 67 yrs old Female presents to ER via Wheelchair with complaints of Chest rt Pain, Back Pain, Dizziness. 21:01 Patient presents to the ED with chest pain, back pain starting today. She denies other rt acute complaints at this time. She reports compliance with medications. Symptoms are moderate severity, no other aggravating alleviating factors.. Historical: - Allergies: 18:47 Morphine; ld1 - PMHx: 18:47 Atrial fibrillation; Hypercholesterolemia; Hypertensive disorder; mechanical valve; ld1 - Immunization history:: Adult Immunizations up to date, Client reports receiving the 2nd dose of the Covid vaccine. - Social history:: Smoking status: Patient denies any tobacco usage or history of. Patient/guardian denies using alcohol. - Family history:: not pertinent. ROS: 21:01 Constitutional: Negative for fever, chills, and weight loss, Respiratory: Negative for rt shortness of breath, cough, wheezing, and pleuritic chest pain, Abdomen/GI: Negative for abdominal pain, nausea, vomiting, diarrhea, and constipation, MS/Extremity: Negative for injury and deformity, Skin: Negative for injury, rash, and discoloration, Neuro: Negative for headache, weakness, numbness, tingling, and seizure, Psych: Negative for depression, anxiety, suicide ideation, homicidal ideation, and hallucinations. 21:01 Cardiovascular: Positive for chest pain, Negative for edema. 21:01 Back: Positive for pain at rest, pain with movement. Exam: 21:01 Constitutional: This is a well developed, well nourished patient who is awake, alert, rt and in no acute distress. Head/Face: Normocephalic, atraumatic. Chest/axilla: Normal chest wall appearance and motion. Nontender with no deformity. No lesions are appreciated. Respiratory: Lungs have equal breath sounds bilaterally, clear to auscultation and percussion. No rales, rhonchi or wheezes noted. No increased work of breathing, no retractions or nasal flaring. Abdomen/GI: Soft, non-tender, with normal bowel sounds. No distension or tympany. No guarding or rebound. No evidence of tenderness throughout. MS/ Extremity: Pulses equal, no cyanosis. Neurovascular intact. Full, normal range of motion. Neuro: Awake and alert, GCS 15, oriented to person, place, time, and situation. Cranial nerves II-XII grossly intact. Motor strength 5/5 in all extremities. Sensory grossly intact. Cerebellar exam normal. Normal gait. Psych: Awake, alert, with orientation to person, place and time. Behavior, mood, and affect are within normal limits. 21:01 Cardiovascular: Audible mechanical valve. 21:01 ECG was reviewed by the Attending Physician. rt Vital Signs: 18:46 BP 157 / 43; Resp 18; Temp 97.9(TE); Pulse Ox 96% on R/A; Weight 46.27 kg; Height 5 ft. ld1 3 in. ; Pain 10/10; 18:46 Pulse 64; Pulse Ox 100% on R/A; ld1 19:38 BP 146 / 50; Pulse 54; Resp 16; Pulse Ox 98% ; vc1 20:00 BP 158 / 63; Pulse 75; Resp 15; Pulse Ox 100% ; vc1 21:00 BP 144 / 56; Pulse 72; Resp 15; Pulse Ox 100% ; vc1 18:46 Body Mass Index 18.07 (46.27 kg, 160.02 cm) ld1 18:46 Pain Scale: Adult ld1 MDM: 19:04 Patient medically screened. rt 21:03 Differential diagnosis: Acute AR, pneumonia, pneumothorax, subtherapeutic INR. Data rt reviewed: vital signs, nurses notes, lab test result(s), EKG, radiologic studies. Consideration of Admission/Observation Patient was admitted/placed on observation. Management of patient was discussed with the following: Hospitalist: Agrees to admit. I considered the following discharge prescriptions or medication management in the emergency department We will start on Lovenox to bridge the patient to therapeutic INR. Independent interpretation of the following test(s) in the Emergency Department X-Ray: My interpretation is No consolidation seen on interpretation is of x-ray images. Care significantly affected by the following chronic conditions: Mechanical valve, A-fib. Counseling: I had a detailed discussion with the patient and/or guardian regarding: the historical points, exam findings, and any diagnostic results supporting the discharge/admit diagnosis, the presence of at least one elevated blood pressure reading (>120/80) during this emergency department visit, lab results, radiology results, the need for further work-up and treatment in the hospital. 11/01 18:49 Order name: Basic Metabolic Panel; Complete Time: 19:54 ld1 11/01 18:49 Order name: CBC with Diff; Complete Time: 19:54 ld1 11/01 18:49 Order name: Troponin HS; Complete Time: 19:54 ld1 11/01 19:11 Order name: LFT's; Complete Time: 20:13 rt 11/01 19:19 Order name: PT-INR; Complete Time: 20:13 rt 11/01 19:19 Order name: Ptt, Activated; Complete Time: 20:13 rt 11/01 20:56 Order name: [facility] la1 11/01 18:49 Order name: XRAY Chest (1 view); Complete Time: 19:54 ld1 11/01 18:49 Order name: EKG; Complete Time: 18:49 ld1 11/01 18:49 Order name: Cardiac monitoring; Complete Time: 18:54 ld1 11/01 18:49 Order name: EKG - Nurse/Tech; Complete Time: 18:54 ld1 11/01 18:49 Order name: IV Saline Lock; Complete Time: 19:36 ld1 11/01 18:49 Order name: Labs collected and sent; Complete Time: 19:36 ld1 11/01 18:49 Order name: O2 Per Protocol; Complete Time: 18:54 ld1 11/01 18:49 Order name: O2 Sat Monitoring; Complete Time: 18:54 ld1 EC:01 Rate is 56 beats/min. Rhythm is regular, Normal Sinus Rhythm with No ectopy. QRS [place] rt is Normal. IN interval is normal. QRS interval is normal. QT interval is normal. No Q waves. Clinical impression: NSR w/ Non-specific ST/T Changes. Administered Medications: 19:33 Drug: Nitroglycerin Sublingual 0.4 mg Route: Sublingual; vc1 19:38 Follow up: Response: No adverse reaction; pt heart rate dropped to 46 after receiving vc1 nitro, provider notified. Last 2 doses not administered 19:33 Drug: Cyclobenzaprine PO 10 mg Route: PO; vc1 21:29 Follow up: Response: No adverse reaction vc1 20:40 Drug: Enoxaparin Sub-Q 1 mg/kg Route: Sub-Q; Site: abdomen; vc1 21:19 Drug: Hydrocodone-Acetaminophen PO (7.5 mg-325 mg) 1 tabs Route: PO; vc1 21:27 Drug: Warfarin PO 2 mg Route: PO; vc1 Disposition Summary: 11/01/22 20:41 Hospitalization Ordered Hospitalization Status: Observation rt Provider: Evin Dumont rt Location: Telemetry/MedSurg (observation) rt Condition: Stable rt Problem: new rt Symptoms: are unchanged rt Bed/Room Type: Standard rt Room Assignment: 425(11/01/22 21:03) cg Diagnosis - Chest pain, unspecified rt - Subtherapeutic INR rt Forms: - Medication Reconciliation Form rt - SBAR form rt Signatures: Dispatcher [employer] EDFarshad Ramirez FNP-C FNP-Cla1 Merary Dinero RN RN cg Leticia Edwards RN RN ld1 Alena Camilo RN RN vc1 Eugene Dooley MD MD rt Corrections: (The following items were deleted from the chart) : 20:41 rt cg
--- NOTE | 2022-11-01 20:43 | ER ---
Nurse's Notes [facility] Name: Michelle Saavedra Age: 67 yrs Sex: Female : 1955 Arrival Date: 11/01/2022 Time: 18:37 Bed 20 Private MD: Diagnosis: Chest pain, unspecified;Subtherapeutic INR Presentation: 11/01 18:46 Chief complaint: Patient states: Chest pain, back pain, dizziness since last night. ld1 Coronavirus screen: At this time, the client does not indicate any symptoms associated with coronavirus-19. Ebola Screen: No symptoms or risks identified at this time. Initial Sepsis Screen: Does the patient meet any 2 criteria? No. Patient's initial sepsis screen is negative. Does the patient have a suspected source of infection? No. Patient's initial sepsis screen is negative. Risk Assessment: Do you want to hurt yourself or someone else? Patient reports no desire to harm self or others. Onset of symptoms was November 01, 2022. 18:46 Method Of Arrival: Wheelchair ld1 18:46 Acuity: JAKUB 3 ld1 Triage Assessment: 18:47 General: Appears in no apparent distress. comfortable, Behavior is calm, cooperative, ld1 appropriate for age. Pain: Complains of pain in chest Pain does not radiate. Pain currently is 10 out of 10 on a pain scale. Quality of pain is described as throbbing, Pain began 1 day ago. Is continuous. EENT: No signs and/or symptoms were reported regarding the EENT system. Neuro: Level of Consciousness is awake, alert, obeys commands, Oriented to person, place, time, situation. Cardiovascular: Capillary refill < 3 seconds Patient's skin is warm and dry. Rhythm is sinus rhythm. Respiratory: Airway is patent Respiratory effort is even, unlabored. GI: Abdomen is flat, non-distended. : No signs and/or symptoms were reported regarding the genitourinary system. Derm: No signs and/or symptoms reported regarding the dermatologic system. Musculoskeletal: No signs and/or symptoms reported regarding the musculoskeletal system. Historical: - Allergies: 18:47 Morphine; ld1 - PMHx: 18:47 Atrial fibrillation; Hypercholesterolemia; Hypertensive disorder; mechanical valve; ld1 - Immunization history:: Adult Immunizations up to date, Client reports receiving the 2nd dose of the Covid vaccine. - Social history:: Smoking status: Patient denies any tobacco usage or history of. Patient/guardian denies using alcohol. - Family history:: not pertinent. Screenin:[facility] ED Fall Risk Assessment (Adult) History of falling in the last 3 months, vc1 including since admission No falls in past 3 months (0 pts) Confusion or Disorientation No (0 pts) Intoxicated or Sedated No (0 pts) Impaired Gait No (0 pts) Mobility Assist Device Used No (0 pt) Altered Elimination No (0 pt) Score/Fall Risk Level 0 - 2 = Low Risk Oriented to surroundings, Maintained a safe environment, Educated pt \T\ family on fall prevention, incl call for assistance when getting out of bed. Abuse screen: Denies threats or abuse. Nutritional screening: No deficits noted. Tuberculosis screening: No symptoms or risk factors identified. Assessment: 19:00 Reassessment: No changes from previously documented assessment. Patient and/or family vc1 updated on plan of care and expected duration. Pain level reassessed. Patient is alert, oriented x 3, equal unlabored respirations, skin warm/dry/pink. See triage assessment. 20:00 Reassessment: No changes from previously documented assessment. Patient and/or family vc1 updated on plan of care and expected duration. Pain level reassessed. Patient is alert, oriented x 3, equal unlabored respirations, skin warm/dry/pink. 21:19 Reassessment: No changes from previously documented assessment. Patient and/or family vc1 updated on plan of care and expected duration. Pain level reassessed. Patient is alert, oriented x 3, equal unlabored respirations, skin warm/dry/pink. 22:00 Reassessment: No changes from previously documented assessment. Patient and/or family vc1 updated on plan of care and expected duration. Pain level reassessed. Patient is alert, oriented x 3, equal unlabored respirations, skin warm/dry/pink. Pain: Complains of pain in back. Vital Signs: 18:46 BP 157 / 43; Resp 18; Temp 97.9(TE); Pulse Ox 96% on R/A; Weight 46.27 kg; Height 5 ft. ld1 3 in. ; Pain 10/10; 18:46 Pulse 64; Pulse Ox 100% on R/A; ld1 19:38 BP 146 / 50; Pulse 54; Resp 16; Pulse Ox 98% ; vc1 20:00 BP 158 / 63; Pulse 75; Resp 15; Pulse Ox 100% ; vc1 21:00 BP 144 / 56; Pulse 72; Resp 15; Pulse Ox 100% ; vc1 18:46 Body Mass Index 18.07 (46.27 kg, 160.02 cm) ld1 18:46 Pain Scale: Adult ld1 ED Course: 18:40 Patient arrived in ED. ts1 18:47 Triage completed. ld1 18:47 Arm band placed on right wrist. EKG completed in triage. Results shown to MD. ld1 19:00 Patient has correct armband on for positive identification. Placed in gown. Bed in low vc1 position. Call light in reach. Client placed on continuous cardiac and pulse oximetry monitoring. NIBP monitoring applied. 19:02 Eugene Dooley MD is Attending Physician. rt 19:03 EKG done, by ED staff. sm8 19:19 Alena Camilo, RN is Primary Nurse. vc1 19:20 Inserted saline lock: 22 gauge in right antecubital area, using aseptic technique. vc1 Blood collected. 19:28 XRAY Chest (1 view) In Process Unspecified. EDMS 20:30 Patient maintains SpO2 saturation greater than 95% on room air. vc1 20:41 Evin Dumont MD is Hospitalizing Provider. rt 21:27 [facility] Sent. vc1 22:00 No provider procedures requiring assistance completed. Patient admitted, IV remains in vc1 place. Administered Medications: 19:33 Drug: Nitroglycerin Sublingual 0.4 mg Route: Sublingual; vc1 19:38 Follow up: Response: No adverse reaction; pt heart rate dropped to 46 after receiving vc1 nitro, provider notified. Last 2 doses not administered 19:33 Drug: Cyclobenzaprine PO 10 mg Route: PO; vc1 21:29 Follow up: Response: No adverse reaction vc1 20:40 Drug: Enoxaparin Sub-Q 1 mg/kg Route: Sub-Q; Site: abdomen; vc1 21:19 Drug: Hydrocodone-Acetaminophen PO (7.5 mg-325 mg) 1 tabs Route: PO; vc1 21:27 Drug: Warfarin PO 2 mg Route: PO; vc1 Medication: 20:30 VIS not applicable for this client. vc1 Intake: Outcome: 20:41 Decision to Hospitalize by Provider. rt 22:00 Admitted to Tele accompanied by tech, via wheelchair, room 425, with chart, Report vc1 called to PHILLIP Meyer 22:00 Condition: good 22:00 Instructed on the need for admit. 22:01 Patient left the ED. vc1 Signatures: Dispatcher [employer] EDLeticia Shah RN RN ld1 Alena Camilo RN RN vc1 Eugene Dooley MD MD rt Liz Rome PAS PAS ts1 Teresita Schmidt sm8
[2022-11-01] MEDS ORDERED: ENOXAPARIN 40 MG/0.4 ML SQ ONE (20:49)
--- NOTE | 2022-11-01 21:04 | P.HP ---
Certification for Inpatient Patient admitted to: Observation With expected LOS: <2 Midnights Patient will require the following post-hospital care: None Practitioner: I am a practitioner with admitting privileges, knowledge of patient current condition, hospital course, and medical plan of care. Services: Services provided to patient in accordance with Admission requirements found in Title 42 Section 412.3 of the Code of Federal Regulations Patient History Date of Service: 11/01/22 Reason for admission: Chest pain, subtherapeutic INR History of Present Illness: 67-year-old female with history of paroxysmal atrial fibrillation, hypertension, hyperlipidemia, mechanical aortic valve on longstanding warfarin presents to the emergency department chief complaint of chest pain. She describes episode where she was resting on her couch when she had onset of sharp chest pain associated with palpitations, she felt as if her heart was racing. She came to the emergency department for evaluation. EKG was negative for STEMI criteria labs were remarkable for subtherapeutic INR 1.56. Chest x-ray was unremarkable. Patient typically takes 2 mg of warfarin daily but she was prescribed Augmentin for a urinary tract infection on the and had been taking 1.5 mg daily since then as she was worried about her INR becoming elevated. She was given therapeutic Lovenox in the ER, I have ordered her to receive 2 mg of p.o. warfarin as well. She will be admitted under observation for ACS rule out, subtherapeutic INR. Allergies morphine Allergy (Intermediate, Verified 10/19/22 08:13) panic ATTACK; shaking Home Medications: Alendronate Sodium 70 mg PO EVERY 7TH DAY 12/25/21 Atorvastatin Calcium 80 mg PO BEDTIME 12/25/21 Furosemide [Lasix*] 20 mg PO DAILY 12/25/21 Gabapentin 300 mg PO TID 12/25/21 Metoprolol Tartrate [Lopressor*] 25 mg PO BID 12/25/21 Pantoprazole [Protonix Tab*] 40 mg PO BID 12/25/21 Zolpidem Tartrate [Ambien*] 10 mg PO BEDTIME 12/25/21 Aspirin [Aspirin EC 81 MG] 81 mg PO DAILY #30 tab 03/28/22 Dofetilide 125 mcg PO BID 08/21/22 Ezetimibe [Zetia*] 10 mg PO DAILY 08/21/22 Hydrocodone Bit/Acetaminophen [Hydrocodon-Acetaminoph 7.5-325] 1 each PO BID PRN 08/21/22 Warfarin Sodium 2 mg PO DAILY 08/21/22 - Past Medical/Surgical History Diabetic: No -: Atrial fibrillation/mechanical aortic valve on warfarin -: Hyperlipidemia -: HTN -: Chronic diastolic congestive heart failure -: GERD -: mechanical aortic valve -: palpitations -: Thoracic aortic aneurysm -: HLD -: anemia -: AFIB with RVR -: aortic valve replacement -: cardioversion -: tubal ligation Psychosocial/ Personal History: Patient lives at home with her children - Family History Brother -: Heart disease, Cancer Notes: heart attack Mother -: Heart disease, Diabetes Notes: of heart attack Father -: Heart disease Notes: of heart attack Sister -: Heart disease, Diabetes, Cancer Notes: sisters x2 - DM. sister x1 - heart attack. sister- lung cancer - Social History Alcohol use: No CD- Drugs: No Caffeine use: Yes Place of Residence: Home Review of Systems 10-point ROS is otherwise unremarkable Cardiovascular: Chest Pain Physical Examination - Physical Exam General: Alert, In no apparent distress, Oriented x3 HEENT: Atraumatic, PERRLA, Mucous membr. moist/pink, EOMI, Sclerae nonicteric Neck: Supple, 2+ carotid pulse no bruit, No LAD, Without JVD or thyroid abnormality Respiratory: Clear to auscultation bilaterally, Normal air movement Cardiovascular: Regular rate/rhythm, Normal S1 S2 Gastrointestinal: Normal bowel sounds, No tenderness Musculoskeletal: No tenderness Integumentary: No rashes Neurological: Normal gait, Normal speech, Normal strength at 5/5 x4 extr, Normal tone, Normal affect Lymphatics: No axilla or inguinal lymphadenopathy - Studies Laboratory Data (last 24 hrs) 11/01/22 19:30: PT 17.2 H, INR 1.56, APTT 31.6 11/01/22 19:30: Total Bilirubin 0.5, AST 27, ALT 26, Alkaline Phosphatase 63 11/01/22 19:15: WBC 5.00, Hgb 9.4 L, Hct 29.4 L, Plt Count 174 11/01/22 19:15: Sodium 141, Potassium 4.0, BUN 13, Creatinine 1.07 H, Glucose 95 Assessment and Plan - Plan Assessment: Chest pain rule out ACS History of atrial fibrillation/mechanical aortic valve repair on chronic anticoagulation with warfarinsubtherapeutic INR Chronic diastolic congestive heart failure hypertension Hyperlipidemia Plan: Chest pain rule out ACS Trend troponins, monitor on telemetry, cardiology consult in place. History of atrial fibrillation/mechanical aortic valve repair on chronic anticoagulation with warfarinsubtherapeutic INR Daily INR, continue therapeutic Lovenox, patient was taking warfarin 1.5 mg daily rather than 2 mg which she typically takes because she was on antibioticAugmentin since the . I have ordered warfarin 2 mg to continue for now. Chronic diastolic congestive heart failure Compensated, continue home medications hypertension Hyperlipidemia Continue home medications. DVT PPX: Warfrin/lovenox Code status: Full Discharge Plan: Home Plan to discharge in: 24 Hours - Advance Directives Does patient have a Living Will: No Does patient have a Durable POA for Healthcare: No - Code Status/Comfort Care Code Status Assessed: Yes (Full code) Critical Care: No Time Spent Managing Pts Care (In Minutes): 55
[2022-11-01] MEDS ORDERED: HYDROCODONE/APAP 7.5/325 MG TAB ONE (21:22)
[2022-11-01] MEDS ORDERED: WARFARIN SODIUM 2 MG TAB ONE (21:32)
[2022-11-01 21:37] LABS: Specific Gravity 1.018 (1.005-1.030); Urine Bacteria <20 /HPF (<20); Urine Bilirubin NEGATIVE (Negative); Urine Blood 2+ (Negative); Urine Clarity Clear (Clear); Urine Color Light-Yellow (Yellow); Urine Crystals Unidentified Few /HPF (None Seen); Urine Glucose NEGATIVE (Negative); Urine Protein NEGATIVE (Negative); Urine RBC 21-50 /HPF (None Seen); Urine Urobilinogen 1+ (Normal)
[2022-11-01] MEDS ORDERED: ONDANSETRON 4 MG/2 ML VIAL IV PRN (21:47)
[2022-11-01 22:17] VITALS: BMI 18.0
[2022-11-01] MEDS: ZOLPIDEM TARTRATE 10 MG TABLET PO SCH (23:04)
[2022-11-01] MEDS: METOPROLOL TAR 25 MG TAB PO SCH (23:04)
[2022-11-02 03:49] LABS: Absolute Lymphocytes (CBC) 1.5 K/uL (0.7-4.9); Lymphocytes % 33.6 % (15.3-44.8); MCV 87.6 fL (80-100); MPV 9.3 fL (7.6-11.3); RBC Red Blood Cell Count 3.09 M/uL (3.86-4.86)
[2022-11-02 03:52] LABS: Protime INR 1.64
[2022-11-02 04:23] LABS: Potassium 3.6 mEq/L (3.5-5.1); Thyroid Stimulating Hormone 0.685 uIU/mL (0.358-3.740); Troponin High Sensitivity 8.2 pg/mL (<58.9)
--- NOTE | 2022-11-02 08:06 | P.PN ---
Date of Service: 11/02/22 Subjective: intermittent sharp chest pain chronic back pain ~unchanged otherwise no new / worsening problems breathing okay, stable off oxygen denies bleeding, no black stool ROS: 10 point ROS as noted above, otherwise negative Physical Exam: GEN: Alert, oriented, NAD HEENT: Normal conjunctiva, sclera anicteric CV: Regular rate and rhythm, no edema Pulm: Nonlabored respirations on room air ABD: Soft, nontender, nondistended Neuro: Normal speech, normal affect vitals reviewed Problem List: Chest pain History of atrial fibrillation/mechanical aortic valve repair on chronic anticoagulation with warfarinsubtherapeutic INR Chronic diastolic congestive heart failure Hypertension Hyperlipidemia Iron deficiency Anemia, chronic Chest pain troponins negative x3 monitor on telemetry cardiology consulted no further inpatient procedures/cardiac testing f/u outpatient History of atrial fibrillation/mechanical aortic valve repair on chronic anticoagulation with warfarinsubtherapeutic INR patient was taking warfarin 1.5 mg daily rather than 2 mg which she typically takes because she was on antibioticAugmentin since the . Daily INR, lovenox 40mg daily per cardio continue warfarin 2mg cardiology recommends INR at least >2 prior to dc home Chronic diastolic congestive heart failure Compensated, continue home medications hypertension Hyperlipidemia Continue home medications. Iron deficiency Anemia, chronic Monitor H&H. Transfuse if hgb < 7 iron studies ordered VTE: Warfarin / Lovenox Code: Full Dispo: Home ~1-2 days pending improvement of INR
[2022-11-02] MEDS: GABAPENTIN 300 MG CAP PO SCH ×3 (08:39→20:14)
[2022-11-02] MEDS: PANTOPRAZOLE 40MG TABLET PO SCH ×2 (08:39→17:12)
[2022-11-02] MEDS: ASPIRIN EC 81 MG TAB PO SCH (08:39)
[2022-11-02] MEDS: ENOXAPARIN 60 MG/0.6 ML SQ SCH ×2 (08:40→20:18)
[2022-11-02] MEDS: METOPROLOL TAR 25 MG TAB PO SCH ×2 (08:42→20:17)
[2022-11-02] MEDS: FUROSEMIDE 20 MG TABLET PO SCH (08:42)
[2022-11-02] MEDS: Dofetilide 125 MCG Capsule PO SCH ×2 (08:42→20:19)
[2022-11-02] MEDS: EZETIMIBE 10 MG TAB PO SCH (08:43)
[2022-11-02] MEDS ORDERED: POTASSIUM CL SA 10 MEQ TAB PO ONE (09:00)
[2022-11-02] MEDS: HYDROCODONE/APAP 7.5/325 MG TAB PO PRN (13:26)
[2022-11-02] MEDS: LIDOCAINE 4% PATCH TOP SCH (14:47)
[2022-11-02] MEDS: WARFARIN SODIUM 2 MG TAB PO SCH (17:12)
--- NOTE | 2022-11-02 19:27 | CON ---
Date of Consultation: 11/02/2022 Reason For Consultation: Chest pain and her INR is subtherapeutic. History Of Present Illness: 67-year-old female with history of paroxysmal atrial fibrillation, hyper tension, dyslipidemia, chemical aortic valve on warfarin, presented to the emergency room with sharp chest pain on the left side. No radiation along with some palpitations. The INR was subtherapeutic, so the patient was admitted. Past Medical History: As outlined above in HPI. Medications: Refer to reconciliation sheet for detailed list. Allergies: MORPHINE. Family History: No premature coronary artery disease or cancer. Social History: Does not smoke or drink. Does not use any drugs. Review of Systems: All systems reviewed are negative except mentioned in HPI. Physical Examination: Vital Signs: Reviewed. HEENT: Pupils are equal and reactive to light. Intact eye movements. Neck: No JVD. No cervical nodes. Neck is supple. Thyroid is not enlarged. Lungs: Clear to auscultation bilaterally. No rhonchi, wheezing, or crackles. No accessory muscle u se. Heart: Regular rate and rhythm. No extra sounds. Abdomen: Soft, nontender. Bowel sounds positive. No organomegaly. No masses or hernia. No rigidi ty or rebound. Extremities: No edema, clubbing, or cyanosis. Intact pulses. Skin: No rash. Neurologic: Alert, awake, oriented x3. No acute focal deficits appreciated. Investigations: BUN 12, creatinine 0.92. Cardiac enzymes x3 are negative and hemoglobin 8.5. Assessment/recommendation: 1.Chest pain. Cardiac enzymes are negative. This is very atypical pain. Recommend outpatient eval uation with a stress test that was not done recently. 2.Aortic valve replacement has mechanical prosthesis and INR is subtherapeutic. Continue Lovenox an d Coumadin until INR is between 2 and 3 and what point the patient can be released. Cardiology will sign off on the case and to follow up with primary explosives worker as an outpatient. SR/MODL Voice ID: [id number] Report ID: [id number]
[2022-11-02] MEDS: ZOLPIDEM TARTRATE 10 MG TABLET PO SCH (20:14)
[2022-11-02] MEDS: ATORVASTATIN 40 MG TAB PO SCH (20:17)
[2022-11-03 04:36] LABS: Absolute Lymphocytes (CBC) 1.4 K/uL (0.7-4.9); Hematocrit 27.2 % (36.0-45.0); Lymphocytes % 33.1 % (15.3-44.8); MCV 87.7 fL (80-100); MPV 9.5 fL (7.6-11.3)
[2022-11-03] MEDS: HYDROCODONE/APAP 7.5/325 MG TAB PO PRN ×3 (04:41→21:46)
[2022-11-03 04:44] LABS: Protime INR 1.91
--- NOTE | 2022-11-03 07:32 | P.PN ---
Date of Service: 11/03/22 Subjective: intermittent chest pain occurring less frequently chronic back pain unchanged stable off room air no new / worsening problems ROS: 10 point ROS as noted above, otherwise negative Physical Exam: GEN: Alert, oriented, NAD HEENT: Normal conjunctiva, sclera anicteric CV: Regular rate and rhythm, no edema Pulm: Nonlabored respirations on room air ABD: Soft, nontender, nondistended Neuro: Normal speech, normal affect vitals reviewed Problem List: Chest pain History of atrial fibrillation/mechanical aortic valve repair on chronic anticoagulation with warfarinsubtherapeutic INR Chronic diastolic congestive heart failure Hypertension Hyperlipidemia Iron deficiency Anemia, chronic Chest pain troponins negative x3 monitor on telemetry cardiology consulted no further inpatient procedures/cardiac testing f/u outpatient History of atrial fibrillation/mechanical aortic valve repair on chronic anticoagulation with warfarinsubtherapeutic INR patient was taking warfarin 1.5 mg daily rather than 2 mg which she typically takes because she was on antibioticAugmentin since the . Daily INR, lovenox 40mg daily per cardio continue warfarin 2mg cardiology recommends INR at least >2 prior to dc home INR: 1.91 Chronic diastolic congestive heart failure Compensated, continue home medications hypertension Hyperlipidemia Continue home medications. Iron deficiency Anemia, chronic Monitor H&H. Transfuse if hgb < 7 iron studies ordered - sent out VTE: Warfarin / Lovenox Code: Full Dispo: Home ~1-2 days pending improvement of INR
[2022-11-03] MEDS: FUROSEMIDE 20 MG TABLET PO SCH (08:48)
[2022-11-03] MEDS: PANTOPRAZOLE 40MG TABLET PO SCH ×3 (08:50→18:52)
[2022-11-03] MEDS: EZETIMIBE 10 MG TAB PO SCH (08:50)
[2022-11-03] MEDS: LIDOCAINE 4% PATCH TOP SCH (08:50)
[2022-11-03] MEDS: ENOXAPARIN 40 MG/0.4 ML SQ SCH (08:50)
[2022-11-03] MEDS: ASPIRIN EC 81 MG TAB PO SCH (08:50)
[2022-11-03] MEDS: METOPROLOL TAR 25 MG TAB PO SCH ×2 (09:00→20:57)
[2022-11-03] MEDS: Dofetilide 125 MCG Capsule PO SCH ×2 (09:00→20:57)
[2022-11-03] MEDS: GABAPENTIN 300 MG CAP PO SCH ×3 (12:17→20:56)
[2022-11-03] MEDS: WARFARIN SODIUM 2 MG TAB PO SCH (17:00)
[2022-11-03] MEDS: ATORVASTATIN 40 MG TAB PO SCH (20:56)
[2022-11-03] MEDS: ZOLPIDEM TARTRATE 10 MG TABLET PO SCH (20:56)
[2022-11-03 23:26] VITALS: O2SAT 99
[2022-11-04 04:37] LABS: Hematocrit 28.6 % (36.0-45.0); MCV 86.7 fL (80-100); MPV 9.5 fL (7.6-11.3)
[2022-11-04 04:38] LABS: Protime INR 2.22
--- NOTE | 2022-11-04 07:35 | P.DS ---
Admission Date: 11/03/22 Discharge Date: 11/04/22 Reason for Admission: Chest pain, subtherapeutic INR Consultations: Cardiology - Dr. Bolanos Brief History of Present Illness: 67-year-old female with history of paroxysmal atrial fibrillation, hypertension, hyperlipidemia, mechanical aortic valve on longstanding warfarin presents to the emergency department chief complaint of chest pain. She describes episode where she was resting on her couch when she had onset of sharp chest pain associated with palpitations, she felt as if her heart was racing. She came to the emergency department for evaluation. EKG was negative for STEMI criteria labs were remarkable for subtherapeutic INR 1.56. Chest x-ray was unremarkable. Patient typically takes 2 mg of warfarin daily but she was prescribed Augmentin for a urinary tract infection on the and had been taking 1.5 mg daily since then as she was worried about her INR becoming elevated. She was given therapeutic Lovenox in the ER, I have ordered her to receive 2 mg of p.o. warfarin as well. Hospital Course: Problem List: Chest pain History of atrial fibrillation/mechanical aortic valve repair on chronic anticoagulation with warfarinsubtherapeutic INR Chronic diastolic congestive heart failure Hypertension Hyperlipidemia Iron deficiency Anemia, chronic Patient presented with atypical chest pain. EKG, chest x-ray, and troponins were without acute findings. She was noted to have a subtherapeutic INR of 1.56. Cardiology was consulted, recommended no further inpatient cardiac evaluation. Recommended to follow-up in the office for outpatient stress test as previously recommended. Given her prior aortic valve replacement and subtherapeutic INR, recommended to continue Lovenox injections until INR is between 23. Patient was resumed on her usual Coumadin dosing of 2 mg daily and her INR was 2.22 on 11/04. Blood work and vitals were at her baseline and stable. She does have chronic anemia, reports history of iron deficiency. Iron studies were ordered, however the reagents are out of stock and blood testing had to be sent to [facility] which will take a few days to result. Hemoglobin was stable and shows chronic anemia, recommend follow-up with PCP to review these iron studies once they are back, and to discuss prior iron studies and the need for iron supplementation. Patient reports getting scoped earlier in the year and no issues were seen. Continue home medications as previously prescribed No new medications/no changes Follow-up PCP within 1 week Cardiology next 1-2 weeks Physical Exam: GEN: Alert, oriented, NAD HEENT: Normal conjunctiva, sclera anicteric CV: Regular rate and rhythm, no edema Pulm: Nonlabored respirations on room air ABD: Soft, nontender, nondistended MSK: No joint tenderness Integumentary: No rashes Neuro: Normal speech, normal affect Vital Signs/Physical Exam: Temp Pulse Resp BP Pulse Ox 97.2 F 65 15 112/55 L 99 11/04/22 04:00 11/04/22 04:00 11/04/22 04:00 11/04/22 04:00 11/04/22 04:00 Laboratory Data at Discharge: WBC 4.20 thou/uL (4.3-10.9) L 11/04/22 03:58 Hgb 9.4 g/dL (12.0-15.0) L D 11/04/22 03:58 Hct 28.6 % (36.0-45.0) L 11/04/22 03:58 Plt Count 167 thou/uL (152-406) 11/04/22 03:58 PT 24.4 SECONDS (9.5-12.5) H 11/04/22 03:58 INR 2.22 11/04/22 03:58 APTT 31.6 SECONDS (24.3-36.9) 11/01/22 19:30 Sodium 143 mEq/L (136-145) 11/03/22 03:49 Potassium 4.0 mEq/L (3.5-5.1) 11/03/22 03:49 BUN 12 mg/dL (7-18) 11/03/22 03:49 Creatinine 0.98 mg/dL (0.55-1.02) 11/03/22 03:49 Glucose 95 mg/dL (74-106) 11/03/22 03:49 Total Bilirubin 0.5 mg/dL (0.2-1.0) 11/01/22 19:30 AST 27 U/L (15-37) 11/01/22 19:30 ALT 26 U/L (13-56) 11/01/22 19:30 Alkaline Phosphatase 63 U/L (45-117) 11/01/22 19:30 Home Medications: Alendronate Sodium 70 mg PO EVERY 7TH DAY 12/25/21 Atorvastatin Calcium 80 mg PO BEDTIME 12/25/21 Furosemide [Lasix*] 20 mg PO DAILY 12/25/21 Gabapentin 300 mg PO TID 12/25/21 Metoprolol Tartrate [Lopressor*] 25 mg PO BID 12/25/21 Pantoprazole [Protonix Tab*] 40 mg PO BID 12/25/21 Zolpidem Tartrate [Ambien*] 10 mg PO BEDTIME 12/25/21 Aspirin [Aspirin EC 81 MG] 81 mg PO DAILY #30 tab 03/28/22 Dofetilide 125 mcg PO BID 08/21/22 Ezetimibe [Zetia*] 10 mg PO DAILY 08/21/22 Hydrocodone Bit/Acetaminophen [Hydrocodon-Acetaminoph 7.5-325] 1 each PO BID PRN 08/21/22 Warfarin Sodium 2 mg PO DAILY 08/21/22 Physician Discharge Instructions: Patient presented with atypical chest pain. EKG, chest x-ray, and troponins were without acute findings. She was noted to have a subtherapeutic INR of 1.56. Cardiology was consulted, recommended no further inpatient cardiac evaluation. Recommended to follow-up in the office for outpatient stress test as previously recommended. Given her prior aortic valve replacement and subtherapeutic INR, recommended to continue Lovenox injections until INR is between 23. Patient was resumed on her usual Coumadin dosing of 2 mg daily and her INR was 2.22 on 11/04. Blood work and vitals were at her baseline and stable. She does have chronic anemia, reports history of iron deficiency. Iron studies were ordered, however the reagents are out of stock and blood testing had to be sent to [facility] which will take a few days to result. Hemoglobin was stable and shows chronic anemia, recommend follow-up with PCP to review these iron studies once they are back, and to discuss prior iron studies and the need for iron supplementation. Discussed given her chronic anemia, chronic iron deficiency anemia, if she has not had an EGD/colonoscopy in several years, to follow-up with GI to have this done soon, at the very least to discuss further with PCP. Continue home medications as previously prescribed No new medications/no changes Follow-up PCP within 1 week Cardiology next 1-2 weeks GI, if not, recent scopes/after discussion with PCP. Time spent managing pt's care (in minutes): 45
[2022-11-04] MEDS: FUROSEMIDE 20 MG TABLET PO SCH (08:21)
[2022-11-04] MEDS: PANTOPRAZOLE 40MG TABLET PO SCH (08:22)
[2022-11-04] MEDS: HYDROCODONE/APAP 7.5/325 MG TAB PO PRN (08:23)
[2022-11-04] MEDS: ASPIRIN EC 81 MG TAB PO SCH (08:24)
[2022-11-04] MEDS: METOPROLOL TAR 25 MG TAB PO SCH (08:24)
[2022-11-04] MEDS: EZETIMIBE 10 MG TAB PO SCH (08:24)
[2022-11-04] MEDS: GABAPENTIN 300 MG CAP PO SCH (08:24)
[2022-11-04 08:25] VITALS: BP 110/59
[2022-11-04] MEDS: LIDOCAINE 4% PATCH TOP SCH (08:25)
[2022-11-04] MEDS: ENOXAPARIN 40 MG/0.4 ML SQ SCH (08:25)
[2022-11-04 09:24] VITALS: TEMP 98.1
--- NOTE | 2022-11-06 15:10 | EKG ---
Test Date: 2022-11-01 Test Time: 18:56:47 Epic Manager: DEIDRE MEASUREMENT RESULTS: Intervals: Rate: 56 [place]: 192 QRSD: 98 QT: 452 QTc: 436 [place]: P: 53 [place]: 192 QRS: 65 T: 60 INTERPRETIVE STATEMENTS: Sinus bradycardia Nonspecific ST abnormality Abnormal ECG Compared to ECG 10/14/2022 02:55:12 Atrial fibrillation no longer present Ventricular premature complex(es) no longer present ST (T wave) deviation still present Electronically Signed On 11-06-22 15:01:21 CDT by Jam Bolanos
[2022-11-08] MEDS ORDERED: ALENDRONATE 70 MG TAB PO SCH (06:00)
== END 2022-11-04 10:33 | disposition home or self-care (01) | DRG 313 ==
LOC: ER 18:37 → ERHOLD 20:53 → 4TH 21:33 → OBSVTOIN 11-03 16:39
PROVIDERS: ADMIT Hospitalist; ATTEND Hospitalist
DX: R07.89 Other chest pain (principal); I50.32 Chronic diastolic (congestive) heart failure; I11.0 Hypertensive heart disease with heart failure; D50.9 Iron deficiency anemia, unspecified; I48.0 Paroxysmal atrial fibrillation; K21.9 Gastro-esophageal reflux disease without esophagitis; G89.29 Other chronic pain; M54.9 Dorsalgia, unspecified; E78.00 Pure hypercholesterolemia, unspecified; Z95.2 Presence of prosthetic heart valve; Z88.5 Allergy status to narcotic agent; Z79.1 Long term (current) use of non-steroidal anti-inflammatories (NSAID); Z98.51 Tubal ligation status; Z79.01 Long term (current) use of anticoagulants; Z79.82 Long term (current) use of aspirin; Z79.899 Other long term (current) drug therapy
CPT/HCPCS: 36415; 71045; 80048; 80076; 81001; 82728; 83540; 83550; 84439; 84443; 84484; 85025; 85027; 85610; 85730; 93005; 96372; 99285; G0378; J1650; J2001

== ENCOUNTER 2022-11-20 20:25 | Inpatient (IN) | payer OTHER ==
--- OUTSIDE RECORDS SUMMARY | 2022-11-20 20:44 | XMS REPORT | Continuity of Care Document ---
:1955 Author Organization [facility] t Address [address] [facility] [place] [address] Care Team Providers Name Role Phone Daniel Ibrahim Primary Care Physician DANIEL IBRAHIM Attending Clinician Unavailable Saurabh Dobson Attending Clinician Unavailable MARIIA CARDONA Attending Clinician Unavailable MARIIA CARDONA Attending Clinician Unavailable REBECA HOLCOMB Attending Clinician Unavailable REBECA HOLCOMB Attending Clinician Unavailable JAMAICA DAN Attending Clinician Unavailable Sy LOVELL, [place] Attending Clinician Doctor Unassigned, [place] Attending Clinician Unavailable WAYNE RABAGO Attending Clinician Unavailable Pob, [facility] Main Attending Clinician Unavailable Yolande Santacruz MD Attending Clinician JOSEPH CORTES Attending Clinician Unavailable Joseph Cortes MD Attending Clinician Isaak FISHER, Jeremy Ricardo Attending Clinician Unavailable Wayne Rabago MD Attending Clinician Santos LOVELL, Sean Granda Attending Clinician [phone] Vinayak Cook MD Attending Clinician Lynnette LOVELL, Shadi Jhaveri Attending Clinician [phone] Franc Sutherland MD Attending Clinician Angela LOVELL, Purnima Attending Clinician Benedicto LOVELL, Benjamin Attending Clinician Rubén LOVELL, Meaghan Reilly Attending Clinician MEAGHAN MON[place]NA Attending Clinician Unavailable 1, [facility] Attending Clinician Unavailable YOLANDE SANTACRUZ Attending Clinician Unavailable Franco FISHER, Georgie Attending Clinician Unavailable Josemanuel LOVELL, Carmen Attending Clinician Ricky RODRÍGUEZ Attending Clinician Unavailable Ricky Ibarra Attending Clinician JOSE VILLA Attending Clinician Unavailable Omero RN GASTROENTEROLOGYJose Attending Clinician CALBE RODRIGUES Attending Clinician Unavailable Jamie Deng DO [...] Number Effective Date Expiration Date Judi hamilton [facility] DUAL [id number] 2020 COMP HMO D SNP 00:00:00 FORMERLY [facility] [id number] 2013 PLUS 00:00:00 [place]ICAID OF [place] [id number] 2022 00:00:00 Problems Condition Condition Condition Status Onset Resolution Last Treating Co mments Source Name Details Category Date Date Treatment Clinician Date 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 00:00: [place] with with 00 Medical preserved preserved Bran ch ejection ejection fraction fraction 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 aorta aorta 00 Medical Branch 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 [place] Medical Branch S/P AVR S/P AVR Disease Recurre [facility] ([facility]07 [facility] valve valve 00:00: Medical replacemen replacemen 00 Ce nter t) t) Acute Acute Disease Active [facility] blood loss blood loss 2-07 [facility] anemia anemia 00:00: [facility] 00 Center Suprathera Suprathera Disease Active [facility] peutic INR peutic INR 2-07 [facility] k[facility] 00:00: Medical 00 Center Fall Fall Disease Active [facility] 00:[facility] 00 Center Acute Acute Disease Active [facility] upper GI upper GI 2-03 [facility] bleed bleed 00:00: Medical 00 Center GI bleed GI bleed Disease Active [facility] 00:[facility] Medical 00 Center Atrial Atrial Disease Active Univers fibrillati fibrillati 8-11 it y of on on 00:00: [place] 00 [facility] Branch E44.0 E44.0 Disease Active 2020-04 Univers Moderate Moderate 1-19 ity of protein protein 00:00: [place] calorie calorie 00 Medical malnutriti malnutriti Br anch on on Other Other Disease Active 2020-04 Univers chest pain chest pain 1-19 it y of 00:00: [place] 00 Medical Branch Chest pain Chest pain Disease Active 2020-04 U nivers 1-17 ity of 00:00: [place] 00 [facility] Elevated Elevated Disease Active 2020-04 Unive rs brain brain 0-24 ity of natriureti natriureti 00:[place] c peptide c peptide 00 Medi tyrone (BNP) (BNP) Branch level level Lab test Lab test Disease Active 2020-04 Unive rs positive positive 0-24 ity of for for 00:00: [place] detection detection 00 Medi tyrone of of [...] it y of emia emia 00:00: [place] Medical Branch Essential Essential Disease Active Uni vers hypertensi hypertensi 8-20 it y of on on 00:00: [place] Medical [facility] Anticoagul Anticoagul Disease Active U nivers ated ated 8-20 ity of 00:00: [place] Medical Branch Coronary Coronary Disease Active Unive rs artery artery 8-20 ity of disease disease 00:00: [place] involving involving 00 Medi [place]rone [place] Branch coronary coronary artery of artery of [place] 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 8-20 ity of disease disease 00:00: [place] involving involving 00 Medi tyrone [place] Branch coronary coronary artery of artery of [place] 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 2-20 ity of disease disease 00:00: [place] involving involving 00 Medi tyrone [place] Branch heart heart without without angina angina pectoris, pectoris, unspecifie unspecifie d vessel d vessel or lesion or lesion type type Atrial Atrial Disease Active Univers flutter flutter 4-03 ity of 00:00: [place] 00 Medical Branch Aortic Aortic Disease Active [...] 00 Center Morphine Propensi Active Shortness of Univers ty to Breath 1-15 ity of adverse 00:00: [place] reaction 00 Medical s to Branch drug MORPHINE DRUG Active High SOB Univers INGREDI 1-15 ity of 00:00: [place] 00 Medical Branch Family History Family Member Diagnosis Comments Start Date Stop Date Source Natural mother Diabetes [facility] Natural mother Heart [facility] Other Diabetes [facility] Natural sister Cancer [facility] Natural sister Diabetes [facility] Social History Social Habit Start Date Stop Date Quantity Comments Source History SDOH Social Unive rsity of Connections [facility] Med ical Together Branch History SDOH Social Unive rsity of Connections [facility] Medical Branch History SDOH Social Unive rsity of Connections [place] Medical Membership Branch History SDOH Social Unive rsity of Connections [place] Medical Meetings Branch Gender identity [facility] Sexual orientation Univer [facility] Exposure to 2022-08-18 2022-08-28 Not sure University of SARS-CoV-2 (event) 00:00:00 12:47:00 [place] Medical [facility] History SDOH 2022-06-07 2022-06-07 1 University o f Alcohol Frequency 00:00:00 00:00:00 [place] M edical Branch History SDOH 2022-06-07 2022-06-07 0 University o f Alcohol Std Drinks 00:00:00 00:00:00 [place] Medical Branch History SDOH 2022-06-07 2022-06-07 1 University o f Alcohol Binge 00:00:00 00:00:00 [place] Medic al Branch History SDOH Social 2022-06-07 2022-06-07 5 Unive rsity of Connections Phone 00:00:00 00:00:00 [place] M edical Branch History SDOH Social 2022-06-07 2022-06-07 4 Unive rsity of Connections Living 00:00:00 00:00:00 [place] Medical Branch History SDOH 2022-06-07 2022-06-07 0 University o f Physical Activity 00:00:00 00:00:00 [facility] edical DPW Branch History [facility] 2022-06-07 2022-06-07 0 University o f Physical Activity 00:00:00 00:00:00 [place] M edical MPS Branch History SDID 2022-06-07 2022-06-07 5 University o f Financial 00:00:00 00:00:00 [place] Medical Branch History [facility] Food 2022-06-07 2022-06-07 1 Univers ity of Worry 00:00:00 00:00:00 [place] [facility] Branch History SDID Food 2022-06-07 2022-06-07 1 Univers ity of Scarcity 00:00:00 00:00:00 [place] [facility] Branch History [facility] 2022-06-07 2022-06-07 2 University o f Transport Med 00:00:00 00:00:00 [place] Medic al Branch History [facility] 2022-06-07 2022-06-07 2 University o f Transport Non-Med 00:00:00 00:00:00 [facility] edical Branch Education 2022-06-06 2022-06-06 14 University of 00:00:00 00:00:00 [facility] Tobacco use and 2022-05-19 2022-05-[address] [facility] k[facility] exposure 00:00:00 00:00:00 tobacco non-user [facility] Center Alcohol intake 2022-05-19 2022-05-19 Ex-drinker [facility] 00:00:00 00:00:00 (finding) Medical Center History [facility] 2022-05-18 2022-05-[address] [facility] Housing Unable to 00:00:00 00:00:00 Medical Center Pay History [facility] 2022-05-18 2022-05-[address] [facility] Housing Places 00:00:00 00:00:00 Medical Ce nter Lived History [facility] 2022-05-18 2022-05-[address] [facility] Housing Homeless 00:00:00 00:00:00 Medical Center Last Year History of Social 2021-02-27 2021-02-27 Univers ity of function 00:00:00 00:00:00 [facility] Sex Ass[birth year] F [facility] 00:00:00 00:00:00 [facility] Center Smoking Status Start Date Stop Date Source Never smoked tobacco [facility] Medications Ordered Filled Start Stop Current Ordering Indication Dosage Frequency Signature Comments Components Source Medication Medication Date Date Medication? Clinician (SIG) Name Name nena Yes 80mg Take 1 Univ ers n 80 mg 7-12 tablet by ity of tablet 00:00: mouth at [place] 00 bedtime. Medical Branch atorvastati Yes 80mg Take 1 Univ ers n 80 mg 7-12 tablet by ity of tablet 00:00: mouth at [place] 00 bedtime. Medical Branch atorvastati Yes 80mg Take 1 Univ ers n 80 mg 7-12 tablet by ity of tablet 00:00: mouth at [place] 00 bedtime. Medical Branch warfarin 1 Yes [id number] 2mg Take 2 Univers mg tablet 7-07 tablets by ity of 00:00: mouth [place] 00 every Medical evening. Branch Take 1mg x3 days, then 2mg x 4 days warfarin 1 Yes [id number] 2mg Take 2 Univers mg tablet 7-07 tablets by ity of 00:00: mouth [place] 00 every Medical evening. Branch Take 1mg x3 days, then 2mg x 4 days warfarin 1 Yes [id number] 2mg Take 2 Univers mg tablet 7-07 tablets by ity of 00:00: mouth [place] 00 every Medical evening. Branch Take 1mg x3 days, then 2mg x 4 days warfarin 1 Yes [id number] 2mg Take 2 Univers mg tablet 7-07 tablets by ity of 00:00: mouth [place] 00 every Medical evening. Branch Take 1mg x3 days, then 2mg x 4 days ezetimibe Yes [id number] 10mg Take 1 U nivers (ZETIA) 10 4-18 tablet by ity of mg tablet 00:00: [place] 00 the Medical morning. Branch ezetimibe Yes [id number] 10mg Take 1 U nivers (ZETIA) 10 4-18 tablet by ity of mg tablet 00:00: [place] 00 the Medical morning. Branch ezetimibe Yes [id number] 10mg Take 1 U nivers (ZETIA) 10 4-18 tablet by ity of mg tablet 00:00: [place] 00 the Medical morning. Branch ezetimibe 3-0 Yes [id number] 10mg Take 1 U nivers (ZETIA) 10 4-18 tablet by ity of mg tablet 00:00: [place] 00 the Medical morning. Branch ezetimibe 2023-0 Yes [id number] 10mg Take 1 U nivers (ZETIA) 10 4-18 tablet by ity of mg tablet 00:00: [place] 00 the Medical morning. Branch ezetimibe 2023-0 Yes [id number] 10mg Take 1 U nivers (ZETIA) 10 4-18 tablet by ity of mg tablet 00:00: [place] 00 the Medical morning. Branch ezetimibe 3-0 Yes [id number] 10mg Take 1 U nivers (ZETIA) 10 4-18 tablet by ity of mg tablet 00:00: [place] 00 the Medical morning. Branch ezetimibe 3-0 Yes [id number] 10mg Take 1 U nivers (ZETIA) 10 4-18 tablet by ity of mg tablet 00:00: [place] 00 the Medical morning. Branch ezetimibe 3-0 Yes [id number] 10mg Take 1 U nivers (ZETIA) 10 4-18 tablet by ity of mg tablet 00:00: [place] 00 the Medical morning. Branch ezetimibe 2023-0 Yes [id number] 10mg Take 1 U nivers (ZETIA) 10 4-18 tablet by ity of mg tablet 00:00: [place] 00 the Medical morning. Branch ezetimibe 2023-0 Yes [id number] 10mg Take 1 U nivers (ZETIA) 10 4-18 tablet by ity of mg tablet 00:00: [place] 00 the Medical morning. Branch ezetimibe 2023-0 Yes [id number] 10mg Take 1 U nivers (ZETIA) 10 4-18 tablet by ity of mg tablet 00:00: [place] 00 the Medical morning. Branch ezetimibe 2023-0 Yes [id number] 10mg Take 1 U nivers (ZETIA) 10 4-18 tablet by ity of mg tablet 00:00: [place] 00 the Medical morning. Branch ezetimibe 3-0 Yes [id number] 10mg Take 1 U nivers (ZETIA) 10 4-18 tablet by ity of mg tablet 00:00: [place] 00 the Medical morning. Branch ezetimibe 2023-0 Yes [id number] 10mg Take 1 U nivers (ZETIA) 10 4-18 tablet by ity of mg tablet 00:00: [place] 00 the Medical morning. Branch ezetimibe 2023-0 Yes [id number] 10mg Take 1 U nivers (ZETIA) 10 4-18 tablet by ity of mg tablet 00:00: [place] 00 the Medical morning. Branch ezetimibe 3-0 Yes [id number] 10mg Take 1 U nivers (ZETIA) 10 4-18 tablet by ity of mg tablet 00:00: [place] 00 the Medical morning. Branch ezetimibe 3-0 Yes [id number] 10mg Take 1 U nivers (ZETIA) 10 4-18 tablet by ity of mg tablet 00:00: [place] 00 the Medical morning. Branch ezetimibe 3-0 Yes [id number] 10mg Take 1 U nivers (ZETIA) 10 4-18 tablet by ity of mg tablet 00:00: [place] 00 the Medical morning. Branch ezetimibe 2023-0 Yes [id number] 10mg Take 1 U nivers (ZETIA) 10 4-18 tablet by ity of mg tablet 00:00: [place] 00 the Medical morning. Branch ezetimibe 2023-0 Yes [id number] 10mg Take 1 U nivers (ZETIA) 10 4-18 tablet by ity of mg tablet 00:00: [place] 00 the Medical morning. Branch ezetimibe 2023-0 Yes [id number] 10mg Take 1 U nivers (ZETIA) 10 4-18 tablet by ity of mg tablet 00:00: [place] 00 the Medical morning. Branch ezetimibe 2023-0 Yes [id number] 10mg Take 1 U nivers (ZETIA) 10 4-18 tablet by ity of mg tablet 00:00: [place] 00 the Medical morning. Branch ezetimibe 0 Yes [id number] 10mg Take 1 U nivers (ZETIA) 10 4-18 tablet by ity of mg tablet 00:00: [place] 00 the Medical morning. Branch ezetimibe 2022-0 Yes [id number] 10mg Take 1 U nivers (ZETIA) 10 4-18 tablet by ity of mg tablet 00:00: [place] 00 the Medical morning. Branch ezetimibe 2022-0 Yes [id number] 10mg Take 1 U nivers (ZETIA) 10 4-18 tablet by ity of mg tablet 00:00: [place] 00 the Medical morning. Branch ezetimibe 2022-0 Yes [id number] 10mg Take 1 U nivers (ZETIA) 10 4-18 tablet by ity of mg tablet 00:00: [place] 00 the Medical morning. Branch ezetimibe 0 Yes [id number] 10mg Take 1 U nivers (ZETIA) 10 4-18 tablet by ity of mg tablet 00:00: [place] 00 the Medical morning. [place] alendronate Yes 70mg 70 mg, Univ ers (FOSAMAX) 06-13 Oral, ity of tablet 70 06:00: QWEEKLY, [place] mg 00 First dose Medical on Sat [place] 06/13/22 at 0000, Until Discontinu ed, Routine magnesium 2022- No 400mg 400 mg, Uni vers oxide 06-12 Oral, ity of (MAG-OX 14:45: 14:19 ONCE, 1 [place] 400) tablet 00 :00 dose, On Medi tyrnoe 400 mg Sat [place] 06/12/22 at 0845, Routine HYDROcodone 0 Yes 1 tablet Un chong -acetaminop 28 as needed ity of hen 7.5-325 12:24: [place] mg per 55 Medical tablet Branch HYDROcodone 2022-0 Yes 1 tablet Un chong -acetaminop -28 as needed ity of hen 7.5-325 12:24: [...] HYDROcodone Yes 1 tablet Un chong -acetaminop 2-27 as needed ity of hen 7.5-325 16:41: [place] mg per 35 Medical tablet Branch NaCl 0.9% Yes [id number] 250mL at 20 U nivers (NS) IV 2-27 mL/hr, IV ity of infusion 16:15: Infusion, [place] 250 [place] 00 CONTINUOUS Medical , Starting Branch on [facility] 06/11/22 at 1015, Until Discontinu ed, Routine&lt ;br>KVO
lidocaine 2022- No [id number] 15mL 15 mL, Univers 2% viscous 06-11 9107 Oral, ity of (LIDOCAINE 16:15: 16:15 ONCE, 1 [place] as VISCOUS) 2 00 :00 dose, On Medic al % solution [facility] 15 mL 06/11/22 at 1015, Routine FENTanyl PF 2022- No [id number] 50ug 50 mcg, Univers (SUBLIMAZE 06-11 9107 Slow IV ity o f (PF)) 16:15: 16:15 Push, [place] injection 00 :00 ONCE, 1 Medical 50 mcg dose, On Branch [facility] 06/11/22 at 1015, Routine midazolam 2022- No [id number] 1mg 1 mg, IV Univers (VERSED) 06-11 9107 Push, ity of injection 1 16:15: 16:15 ONCE, 1 [place] mg 00 :00 dose, On Medical [facility] 06/11/22 at 1015, Routine warfarin 1 Yes [id number] 2mg Take 2 Univers mg tablet 2-27 tablets by ity of 00:00: mouth [place] 00 every Medical evening. Branch Alternate take 1mg x3 days, then 2mg x 4 days warfarin 1 Yes [id number] 2mg Take 2 Univers mg tablet 2-27 tablets by ity of 00:00: mouth [place] 00 every Medical evening. Branch Alternate take 1mg x3 days, then 2mg x 4 days warfarin 1 Yes [id number] 2mg Take 2 Univers mg tablet 2-27 tablets by ity of 00:00: mouth [place] 00 every Medical evening. Branch Alternate take 1mg x3 days, then 2mg x 4 days warfarin 1 2022-0 Yes [id number] 2mg Take 2 Univers mg tablet 2-27 tablets by ity of 00:00: mouth [place] 00 every Medical evening. Branch Alternate take 1mg x3 days, then 2mg x 4 days warfarin 1 2022-0 Yes [id number] 2mg Take 2 Univers mg tablet 2-27 tablets by ity of 00:00: mouth [place] 00 every Medical evening. Branch Alternate take 1mg x3 days, then 2mg x 4 days warfarin 1 2022-0 Yes [id number] 2mg Take 2 Univers mg tablet 2-27 tablets by ity of 00:00: mouth [place] 00 every Medical evening. Branch Alternate take 1mg x3 days, then 2mg x 4 days warfarin 1 2022-0 Yes [id number] 2mg Take 2 Univers mg tablet 2-27 tablets by ity of 00:00: mouth [place] 00 every Medical evening. Branch Alternate take 1mg x3 days, then 2mg x 4 days warfarin 0 Yes [id number] 2mg Take 2 Univers mg tablet 2-27 tablets by ity of 00:00: mouth [place] 00 every Medical evening. Branch Alternate take 1mg x3 days, then 2mg x 4 days warfarin 2022-0 Yes [id number] 2mg Take 2 Univers mg tablet 2-27 tablets by ity of 00:00: mouth [place] 00 every Medical evening. Branch Alternate take 1mg x3 days, then 2mg x 4 days warfarin 0 Yes [id number] 2mg Take 2 Univers mg tablet 2-27 tablets by ity of 00:00: mouth [place] 00 every Medical evening. Branch Alternate take 1mg x3 days, then 2mg x 4 days warfarin 2022-0 Yes [id number] 2mg Take 2 Univers mg tablet 2-27 tablets by ity of 00:00: mouth [place] 00 every Medical evening. Branch Alternate take 1mg x3 days, then 2mg x 4 days warfarin 1 2022-0 Yes [id number] 2mg Take 2 Univers mg tablet 2-27 tablets by ity of 00:00: mouth [place] 00 every Medical evening. Branch Alternate take 1mg x3 days, then 2mg x 4 days warfarin 1 2022-0 Yes [id number] 2mg Take 2 Univers mg tablet 2-27 tablets by ity of 00:00: mouth [place] 00 every Medical evening. Branch Alternate take 1mg x3 days, then 2mg x 4 days warfarin 1 2022-0 Yes [id number] 2mg Take 2 Univers mg tablet 2-27 tablets by ity of 00:00: mouth [place] 00 every Medical evening. Branch Alternate take 1mg x3 days, then 2mg x 4 days warfarin 1 2022-0 Yes [id number] 2mg Take 2 Univers mg tablet 2-27 tablets by ity of 00:00: mouth [place] 00 every Medical evening. Branch Alternate take 1mg x3 days, then 2mg x 4 days warfarin 1 2022-0 Yes [id number] 2mg Take 2 Univers mg tablet 2-27 tablets by ity of 00:00: mouth [place] 00 every Medical evening. Branch Alternate take 1mg x3 days, then 2mg x 4 days warfarin 1 2022-0 Yes [id number] 2mg Take 2 Univers mg tablet 2-27 tablets by ity of 00:00: mouth [place] 00 every Medical evening. Branch Alternate take 1mg x3 days, then 2mg x 4 days warfarin 1 2022-0 Yes [id number] 2mg Take 2 Univers mg tablet 2-27 tablets by ity of 00:00: mouth [place] 00 every Medical evening. Branch Alternate take 1mg x3 days, then 2mg x 4 days warfarin 1 2022-0 Yes [id number] 2mg Take 2 Univers mg tablet 2-27 tablets by ity of 00:00: mouth [place] 00 every Medical evening. Branch Alternate take 1mg x3 days, then 2mg x 4 days warfarin 1 2022-0 Yes [id number] 2mg Take 2 Univers mg tablet 2-27 tablets by ity of 00:00: mouth [place] 00 every Medical evening. Branch Alternate take 1mg x3 days, then 2mg x 4 days warfarin 1 2022-0 Yes [id number] 2mg Take 2 Univers mg tablet 2-27 tablets by ity of 00:00: mouth [place] 00 every Medical evening. Branch Alternate take 1mg x3 days, then 2mg x 4 days warfarin 1 2022-0 Yes [id number] 2mg Take 2 Univers mg tablet 2-27 tablets by ity of 00:00: mouth [place] 00 every Medical evening. Branch Alternate take 1mg x3 days, then 2mg x 4 days warfarin 1 2022-0 Yes [id number] 2mg Take 2 Univers mg tablet 2-27 tablets by ity of 00:00: mouth [place] 00 every Medical evening. Branch Alternate take 1mg x3 days, then 2mg x 4 days warfarin 1 2022-0 Yes [id number] 2mg Take 2 Univers mg tablet 2-27 tablets by ity of 00:00: mouth [place] 00 every Medical evening. Branch Alternate take 1mg x3 days, then 2mg x 4 days warfarin 1 2022-0 Yes [id number] 2mg Take 2 Univers mg tablet 2-27 tablets by ity of 00:00: mouth [place] 00 every Medical evening. Branch Alternate take 1mg x3 days, then 2mg x 4 days warfarin 1 2022-0 Yes [id number] 2mg Take 2 Univers mg tablet 2-27 tablets by ity of 00:00: mouth [place] 00 every Medical evening. Branch Alternate take 1mg x3 days, then 2mg x 4 days warfarin 2022-0 Yes [id number] 2mg Take 2 Univers mg tablet 2-27 tablets by ity of 00:00: mouth [place] 00 every Medical evening. Branch Alternate take 1mg x3 days, then 2mg x 4 days warfarin 2022-0 Yes [id number] 2mg Take 2 Univers mg tablet 2-27 tablets by ity of 00:00: mouth [place] 00 every Medical evening. Branch Alternate take 1mg x3 days, then 2mg x 4 days warfarin 1 2022-0 Yes [id number] 2mg Take 2 Univers mg tablet 2-27 tablets by ity of 00:00: mouth [place] 00 every Medical evening. Branch Alternate take 1mg x3 days, then 2mg x 4 days warfarin 2022-0 Yes [id number] 2mg Take 2 Univers mg tablet 2-27 tablets by ity of 00:00: mouth [place] 00 every Medical evening. Branch Alternate take 1mg x3 days, then 2mg x 4 days warfarin 1 2022-0 Yes [id number] 2mg Take 2 Univers mg tablet 2-27 tablets by ity of 00:00: mouth [place] 00 every Medical evening. Branch Alternate take 1mg x3 days, then 2mg x 4 days warfarin 1 2022-0 Yes [id number] 2mg Take 2 Univers mg tablet 2-27 tablets by ity of 00:00: mouth [place] 00 every Medical evening. Branch Alternate take 1mg x3 days, then 2mg x 4 days warfarin 1 0 Yes [id number] 2mg Take 2 Univers mg tablet 2-27 tablets by ity of 00:00: mouth [place] 00 every Medical evening. Branch Alternate take 1mg x3 days, then 2mg x 4 days warfarin 0 Yes [id number] 2mg Take 2 Univers mg tablet 2-27 tablets by ity of 00:00: mouth [place] 00 every Medical evening. Branch Alternate take 1mg x3 days, then 2mg x 4 days warfarin 0 Yes [id number] 2mg Take 2 Univers mg tablet 2-27 tablets by ity of 00:00: mouth [place] 00 every Medical evening. Branch Alternate take 1mg x3 days, then 2mg x 4 days warfarin 1 Yes [id number] 2mg Take 2 Univers mg tablet 2-27 tablets by ity of 00:00: mouth [place] 00 every Medical evening. Branch Alternate take 1mg x3 days, then 2mg x 4 days warfarin Yes [id number] 2mg Take 2 Univers mg tablet 2-27 tablets by ity of 00:00: mouth [place] 00 every Medical evening. Branch Alternate take 1mg x3 days, then 2mg x 4 days warfarin Yes [id number] 2mg Take 2 Univers mg tablet 2-27 tablets by ity of 00:00: mouth [place] 00 every Medical evening. Branch Alternate take 1mg x3 days, then 2mg x 4 days warfarin 0 Yes [id number] 2mg Take 2 Univers mg tablet 2-27 tablets by ity of 00:00: mouth [place] 00 every Medical evening. Branch Alternate take 1mg x3 days, then 2mg x 4 days warfarin 0 Yes [id number] 2mg Take 2 Univers mg tablet 2-27 tablets by ity of 00:00: mouth [place] 00 every Medical evening. Branch Alternate take 1mg x3 days, then 2mg x 4 days warfarin 1 0 Yes [id number] 2mg Take 2 Univers mg tablet 2-27 tablets by ity of 00:00: mouth [place] 00 every Medical evening. Branch Alternate take 1mg x3 days, then 2mg x 4 days warfarin 1 2022-0 3- No [id number] 2mg Take 2 Univers mg tablet 2-27 -07 tablets by ity of 00:00: 00:00 mouth [place] 00 :00 every Medical evening. Branch Alternate take 1mg x3 days, then 2mg x 4 days dofetilide 2022- No [id number] 250ug Take 1 Univers 250 mcg 2-27 05-29 capsule by ity o f capsule 00:00: 04:59 mouth [place] 00 :00 every 12 Medical (twelve) Branch hours for 90 days. dofetilide 2022- No [id number] 250ug Take 1 [facility] 250 mcg 2-27 05-29 capsule by ity o f capsule 00:00: 04:59 mouth [place] 00 :00 every 12 Medical (twelve) Branch hours for 90 days. dofetilide 2022- No [id number] 250ug Take 1 [facility] 250 mcg 2-27 05-29 capsule by ity o f capsule 00:00: 04:59 mouth [place] 00 :00 every 12 Medical (twelve) Branch hours for 90 days. dofetilide 2022- No [id number] 250ug Take 1 [facility] 250 mcg 2-27 05-29 capsule by ity o f capsule 00:00: 04:59 mouth [place] 00 :00 every 12 [facility] (twelve) Branch hours for 90 days. dofetilide 2022- No [id number] 250ug Take 1 [facility] 250 mcg 2-27 05-29 capsule by ity o f capsule 00:00: 04:59 mouth [place] 00 :00 every 12 Medical (twelve) Branch hours for 90 days. dofetilide 2022- No [id number] 250ug Take 1 [facility] 250 mcg 2-27 05-29 capsule by ity o f capsule 00:00: 04:59 mouth [place] 00 :00 every 12 Medical (twelve) Branch hours for 90 days. dofetilide 2022- No [id number] 250ug Take 1 [facility] 250 mcg 2-27 05-29 capsule by ity o f capsule 00:00: 04:59 mouth [place] 00 :00 every 12 Medical (twelve) Branch hours for 90 days. dofetilide 2022- No [id number] 250ug Take 1 [facility] 250 mcg 2-27 05-29 capsule by ity o f capsule 00:00: 04:59 mouth [place] 00 :00 every 12 Medical (twelve) Branch hours for 90 days. dofetilide 2022- No [id number] 250ug Take 1 [facility] 250 mcg 2-27 05-29 capsule by ity o f capsule 00:00: 04:59 mouth [place] 00 :00 every 12 Medical (twelve) Branch hours for 90 days. dofetilide 2022- No [id number] 250ug Take 1 [facility] 250 mcg 2-27 05-29 capsule by ity o f capsule 00:00: 04:59 mouth [place] 00 :00 every 12 Medical (twelve) Branch hours for 90 days. dofetilide 2022- No [id number] 250ug Take 1 [facility] 250 mcg 2-27 05-29 capsule by ity o f capsule 00:00: 04:59 mouth [place] 00 :00 every 12 Medical (twelve) Branch hours for 90 days. dofetilide 2022- No [id number] 250ug Take 1 [facility] 250 mcg 2-27 05-29 capsule by ity o f capsule 00:00: 04:59 mouth [place] 00 :00 every 12 Medical (twelve) Branch hours for 90 days. dofetilide 2022- No [id number] 250ug Take 1 [facility] 250 mcg 2-27 05-29 capsule by ity o f capsule 00:00: 04:59 mouth [place] 00 :00 every 12 Medical (twelve) Branch hours for 90 days. dofetilide 2022- No [id number] 250ug Take 1 [facility] 250 mcg 2-27 05-29 capsule by ity o f capsule 00:00: 04:59 mouth [place] 00 :00 every 12 Medical (twelve) Branch hours for 90 days. dofetilide 2022- No [id number] 250ug Take 1 [facility] 250 mcg 2-27 05-29 capsule by ity o f capsule 00:00: 04:59 mouth [place] 00 :00 every 12 Medical (twelve) Branch hours for 90 days. dofetilide 2022- No [id number] 250ug Take 1 [facility] 250 mcg 2-27 05-29 capsule by ity o f capsule 00:00: 04:59 mouth [place] 00 :00 every 12 Medical (twelve) Branch hours for 90 days. dofetilide 2022- No [id number] 250ug Take 1 [facility] 250 mcg 2-27 05-29 capsule by ity o f capsule 00:00: 04:59 mouth [place] 00 :00 every 12 Medical (twelve) Branch hours for 90 days. dofetilide 2022- No [id number] 250ug Take 1 [facility] 250 mcg 2-27 05-29 capsule by ity o f capsule 00:00: 04:59 mouth [place] 00 :00 every 12 Medical (twelve) Branch hours for 90 days. dofetilide 2022- No [id number] 250ug Take 1 [facility] 250 mcg 2-27 05-29 capsule by ity o f capsule 00:00: 04:59 mouth [place] 00 :00 every 12 Medical (twelve) Branch hours for 90 days. dofetilide 2022- No [id number] 250ug Take 1 [facility] 250 mcg 2-27 05-29 capsule by ity o f capsule 00:00: 04:59 mouth [place] 00 :00 every 12 Medical (twelve) Branch hours for 90 days. dofetilide 2022- No [id number] 250ug Take 1 [facility] 250 mcg 2-27 05-29 capsule by ity o f capsule 00:00: 04:59 mouth [place] 00 :00 every 12 Medical (twelve) Branch hours for 90 days. dofetilide 2022- No [id number] 250ug Take 1 [facility] 250 mcg 2-27 05-29 capsule by ity o f capsule 00:00: 04:59 mouth [place] 00 :00 every 12 Medical (twelve) Branch hours for 90 days. dofetilide 2022- No [id number] 250ug Take 1 [facility] 250 mcg 2-27 05-29 capsule by ity o f capsule 00:00: 04:59 mouth [place] 00 :00 every 12 Medical (twelve) Branch hours for 90 days. dofetilide 2022- No [id number] 250ug Take 1 [facility] 250 mcg 2-27 05-29 capsule by ity o f capsule 00:00: 04:59 mouth [place] 00 :00 every 12 Medical (twelve) Branch hours for 90 days. dofetilide 2022- No [id number] 250ug Take 1 [facility] 250 mcg 2-27 05-29 capsule by ity o f capsule 00:00: 04:59 mouth [place] 00 :00 every 12 Medical (twelve) Branch hours for 90 days. dofetilide 2022- No [id number] 250ug Take 1 [facility] 250 mcg 2-27 05-29 capsule by ity o f capsule 00:00: 04:59 mouth [place] 00 :00 every 12 Medical (twelve) Branch hours for 90 days. dofetilide 2022- No [id number] 250ug Take 1 [facility] 250 mcg 2-27 05-29 capsule by ity o f capsule 00:00: 04:59 mouth [place] 00 :00 every 12 Medical (twelve) Branch hours for 90 days. dofetilide 2022- No [id number] 250ug Take 1 [facility] 250 mcg 2-27 05-29 capsule by ity o f capsule 00:00: 04:59 mouth [place] 00 :00 every 12 Medical (twelve) Branch hours for 90 days. dofetilide 2022- No [id number] 250ug Take 1 [facility] 250 mcg 2-27 05-29 capsule by ity o f capsule 00:00: 04:59 mouth [place] 00 :00 every 12 Medical (twelve) Branch hours for 90 days. dofetilide 2022- No [id number] 250ug Take 1 [facility] 250 mcg 2-27 05-29 capsule by ity o f capsule 00:00: 04:59 mouth [place] 00 :00 every 12 Medical (twelve) Branch hours for 90 days. dofetilide 2022- No [id number] 250ug Take 1 [facility] 250 mcg 2-27 05-29 capsule by ity o f capsule 00:00: 04:59 mouth [place] 00 :00 every 12 Medical (twelve) Branch hours for 90 days. dofetilide 2022- No [id number] 250ug Take 1 [facility] 250 mcg 2-27 05-29 capsule by ity o f capsule 00:00: 04:59 mouth [place] 00 :00 every 12 Medical (twelve) Branch hours for 90 days. dofetilide 2022- No [id number] 250ug Take 1 [facility] 250 mcg 2-27 05-29 capsule by ity o f capsule 00:00: 04:59 mouth [place] 00 :00 every 12 Medical (twelve) Branch hours for 90 days. dofetilide 2022-2022- No [id number] 250ug Take 1 [facility] 250 mcg 06-11 capsule by ity o f capsule 00:00: 04:59 mouth [place] 00 :00 every 12 Medical (twelve) Branch hours for 90 days. enoxaparin 2022-2022- No [id number] 40mg inject 0.4 [facility] 40 mg/0.4 2-27 03-05 mL under ity o f mL 00:00: 05:59 the skin [place] injection 00 :00 in the [facility] Branch for 5 days. enoxaparin 2022-2022- No [id number] 40mg inject 0.4 [facility] 40 mg/0.4 2- 03-05 mL under ity o f mL 00:00: 05:59 the skin [place] injection 00 :00 in the [facility] Branch for 5 days. enoxaparin 2022-2022- No [id number] 40mg inject 0.4 [facility] 40 mg/0.4 2- 03-05 mL under ity o f mL 00:00: 05:59 the skin [place] injection 00 :00 in the [facility] Branch for 5 days. enoxaparin 2022-2022- No [id number] 40mg inject 0.4 [facility] 40 mg/0.4 2- 03-05 mL under ity o f mL 00:00: 05:59 the skin [place] injection 00 :00 in the [facility] Branch for 5 days. enoxaparin 2022-2022- No [id number] 40mg inject 0.4 [facility] 40 mg/0.4 2-27 03-05 mL under ity o f mL 00:00: 05:59 the skin [place] injection 00 :00 in the [facility] Branch for 5 days. enoxaparin 2022-2022- No [id number] 40mg inject 0.4 [facility] 40 mg/0.4 2-27 03-05 mL under ity o f mL 00:00: 05:59 the skin [place] injection 00 :00 in the [facility] for 5 days. enoxaparin 2022-2022- No [id number] 40mg inject 0.4 [facility] 40 mg/0.4 2-27 03- mL under ity o f mL 00:00: 05:59 the skin [place] injection 00 :00 in the Medical morning Branch for 5 days. dofetilide 2022- No [id number] 250ug Take 1 [facility] 250 mcg 06-11 capsule by ity o f capsule 00:00: 05:59 mouth [place] 00 :00 every 12 Medical (twelve) Branch hours for 2 days. warfarin 2 2022- No [id number] 2mg Take 1 [facility] mg tablet 06-11 tablet by ity of 00:00: 05:59 mouth [place] 00 :00 every Medical evening Branch for 2 days. dofetilide 2022- No [id number] 250ug Take 1 [facility] 250 mcg 06-11 capsule by ity o f capsule 00:00: 05:59 mouth [place] 00 :00 every 12 Medical (twelve) Branch hours for 2 days. warfarin 2 2022- No [id number] 2mg Take 1 [facility] mg tablet 06-11 tablet by ity of 00:00: 05:59 mouth [place] 00 :00 every Medical evening Branch for 2 days. warfarin 2 2022- No [id number] 2mg Take 1 [facility] mg tablet 06-11 tablet by ity of 00:00: 05:59 mouth [place] 00 :00 every Medical evening Branch for 2 days. warfarin 2 2022- No [id number] 2mg Take 1 [facility] mg tablet 06-11 tablet by ity of 00:00: 05:59 mouth [place] 00 :00 every Medical evening Branch for 2 days. warfarin 2 2022- No [id number] 2mg Take 1 [facility] mg tablet 06-11- tablet by ity of 00:00: 05:59 mouth [place] 00 :00 every Medical evening Branch for 2 days. warfarin 2 2022- No [id number] 2mg Take 1 [facility] mg tablet 06-11 tablet by ity of 00:00: 05:59 mouth [place] 00 :00 every Medical evening Branch for 2 days. warfarin 2 2022- No [id number] 2mg Take 1 [facility] mg tablet 2-27 03-03 tablet by ity of 00:00: 05:59 mouth [place] 00 :00 every Medical evening Branch for 2 days. enoxaparin 2022-2022- No [id number] 40mg inject 0.4 [facility] 40 mg/0.4 06-11 03-02 mL under ity o f mL 00:00: 05:59 the skin [place] injection 00 :00 in the [facility] morning Branch for 2 days. enoxaparin 2022-2022- No [id number] 40mg inject 0.4 [facility] 40 mg/0.4 06-11 03-02 mL under ity o f mL 00:00: 05:59 the skin [place] injection 00 :00 in the Medical morning Branch for 2 days. dofetilide 2022-2022- No [id number] 250ug Take 1 [facility] 250 mcg 06-11- capsule by ity o f capsule 00:00: 05:59 mouth [place] 00 :00 every 12 [facility] Branch hours for 2 days. enoxaparin 2022-2022- No [id number] 40mg inject 0.4 [facility] 40 mg/0.4 06-11 03-02 mL under ity o f mL 00:00: 05:59 the skin [place] injection 00 :00 in the [facility] morning Branch for 2 days. dofetilide 2022-2022- No [id number] 250ug Take 1 [facility] 250 mcg 06-11- capsule by ity o f capsule 00:00: 05:59 mouth [place] 00 :00 every 12 [facility] Branch hours for 2 days. enoxaparin 2022-2022- No [id number] 40mg inject 0.4 [facility] 40 mg/0.4 06-11 03-02 mL under ity o f mL 00:00: 05:59 the skin [place] injection 00 :00 in the [facility] morning Branch for 2 days. dofetilide 2022-0 2022- No [id number] 250ug Take 1 [facility] 250 mcg 2- capsule by ity o f capsule 00:00: 05:59 mouth [place] 00 :00 every 12 [facility] Branch hours for 2 days. enoxaparin 2022-2022- No [id number] 40mg inject 0.4 [facility] 40 mg/0.4 2- 03-02 mL under ity o f mL 00:00: 05:59 the skin [place] injection 00 :00 in the Medical morning Branch for 2 days. dofetilide 2022- No [id number] 250ug Take 1 [facility] 250 mcg 06-11 capsule by ity o f capsule 00:00: 05:59 mouth [place] 00 :00 every 12 Medical (twelve) Branch hours for 2 days. enoxaparin 2022- No [id number] 40mg inject 0.4 [facility] 40 mg/0.4 06-11 mL under ity o f mL 00:00: 05:59 the skin [place] injection 00 :00 in the Medical morning Branch for 2 days. dofetilide 2022- No [id number] 250ug Take 1 [facility] 250 mcg 06-11 capsule by ity o f capsule 00:00: 05:59 mouth [place] 00 :00 every 12 Medical (twelve) Branch hours for 2 days. enoxaparin No [id number] 40mg inject 0.4 [facility] 40 mg/0.4 06-11 [...] :00 dose, On Medi tyrone 800 mg [place] Branch 06/10/22 at 0815, Routine magnesium 2022- [...] INITIAL INFUSION RATE.&nbsp ; _ &nb sp;[facility], AND [facility] ONLY &nbs p; - aPTT < [...] No 400mg 400 mg, Uni vers oxide - 02-25 Oral, ity of (MAG-OX 15:00: 15:14 [...] 06/07/22 at 2000, Until Discontinu ed, Routine
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 Restricted medication : MARIIA [...] [place] mg 00 First dose Medical on [facility] Branch 06/07/22 at 0900, Until Discontinu ed, [...] mg 00 :24 First dose Medical on [facility] Branch 06/07/22 at 0900, Until Discontinu ed, Routine HYDROcodone Yes 1{tbl} 1 tablet, Univers -acetaminop 06-07 Oral, ity of hen (NORCO) 14:58: Q6HPRN, Babak as 10-325 mg 30 Starting Medica l tablet 1 on [facility] tablet 06/07/22 at 0858, Until Discontinu ed, Routine, Pain (scale 7-10), Pain (scale 4-6) gabapentin 2022- No 300mg 300 mg, [facility] (NEURONTIN) 06-07 Oral, ity of capsule 300 07:45: 07:14 ONCE, 1 [place] mg 00 :00 dose, On [facility] 06/07/22 at 0145, Routine KCL No 20meq 20 mEq, Univers (KLOR-CON 06-07 Oral, ity of M20) tablet 05:00: 06:48 ONCE, 1 [place] 20 mEq 00 :00 dose, On [facility] 06/06/22 at 2315, Routine magnesium 2022- No 2g 2 g, IV Univ ers sulfate in 06-07 Piggyback, it y of water 2 05:00: 08:15 Administer [place]ak as gram/50 mL 00 :00 over 60 Medica l (4 %) Minutes, Branch infusion 2 ONCE, 1 g dose, On [facility] 06/06/22 at 2315, Routine atorvastati Yes 80mg 80 mg, Univ ers n (LIPITOR) 06-07 Oral, QHS, it y of tablet 80 03:00: First dose [place] mg 00 on [facility] 06/06/22 at Branch 2100, Until Discontinu ed, Routine dofetilide 2022- No 125ug 125 mcg, U nivers (TIKOSYN) 06-07 Oral, ity of capsule 125 02:00: 16:35 Q12H, [place] mcg 00 :11 First dose Medical on Sat06/06/22 at 2000, Until Discontinu ed, Routine
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 Restricted medication : KIRK BETATYMARIIA ROCK lidocaine Yes 1{patch 1 Patch, U nivers [...] tablet 1 mg 01:00: 16:41 DAILY AT [facility] 00 :04 1700, Medical First dose Branch [...] Starting Medica l tablet 1 on Sat tablet 06/06/22 at 1807, Until [place] 06/07/22 at 0837, Routine, Pain (scale 7-10) Fesoterodin Yes 1 tablet [facility] e (TOVIAZ) 06-06 ity of 4 mg tablet 18:17: [place] [address] Medical Branch HYDROcodone Yes 1 tablet [facility] -acetaminop 2-22 as needed ity of hen 7.5-325 18:17: [place] mg per [address] [place] [address] Branch furosemide 2023- No 20mg QD Take [...] 00 :00 by mouth Center daily. warfarin 2022-0 Yes 1mg QD Take 1 [...] 16:44: daily. Medi tyrone MG tablet 11 [place] warfarin 0 Yes 1mg QD Take 1 [...] 16:44: daily. Medi tyrone MG tablet 11 [place] amiodarone Yes Take 1 tab C HI [...] decrease Center to 1 tab daily. atorvastati 0 4- No 80mg QD Take [address] [facility] (LIPITOR) 2-12 02-12 tablet (80 L ukes 80 MG 00:00: 23:59 mg total) Medica l tablet 00 :00 by mouth Center nightly. metoprolol 2022-2023- No 12.5mg Q.5D Take 0.[address] [facility] tartrate 2-12 -12 tablets [facility] (LOPRESSOR) 00:00: 23:59 (12.5 mg M edical 25 MG 00 :00 total) by Center tablet mouth 2 (two) times daily. atorvastati 2022-2023- No 80mg QD Take [address] [facility] (LIPITOR) 2-03 16-12 tablet (80 L ukes 80 MG 00:00: 23:59 mg total) Medica l tablet 00 :00 by mouth Center nightly. metoprolol 2022-2023- No 12.5mg Q.5D Take 0.[address] [facility] [address] tartrate 2-03 16- tablets [facility] (LOPRESSOR) 00:00: 23:59 (12.5 mg M edical 25 MG 00 :00 total) by Center tablet mouth 2 (two) times daily. atorvastati 2022-2023- No 80mg QD Take [address] [facility] (LIPITOR) 2-03 16- tablet (80 L ukes 80 MG 00:00: 23:59 mg total) Medica l tablet 00 :00 by mouth Center nightly. metoprolol 2023- No 12.5mg Q.5D Take 0.[address] [facility] [address] tartrate 2-03 16- tablets [facility] (LOPRESSOR) 00:00: 23:59 (12.5 mg M edical 25 MG 00 :00 total) by Center tablet mouth 2 (two) times daily. atorvastati 2022-2023- No 80mg QD Take [address] [facility] (LIPITOR) 2-03 16-12 tablet (80 L ukes 80 MG 00:00: 23:59 mg total) Medica l tablet 00 :00 by mouth Center nightly. metoprolol 2022-2023- No 12.5mg Q.5D Take 0.[address] [facility] [address] tartrate 2-03 16-12 tablets [facility] (LOPRESSOR) 00:00: 23:59 (12.5 mg M edical 25 MG 00 :00 total) by Center tablet mouth 2 (two) times daily. atorvastati 2022-0 2023- No 80mg QD Take [address] [facility] (LIPITOR) 2-03 16-12 tablet (80 L ukes 80 MG 00:00: [...] Medi tyrone MG tablet 50 Center warfarin 2022-0 Yes 1mg QD Take [address] [facility] (COUMADIN, 2-04 by mouth [facility] JANTOVEN) 1 13:52: daily. Medi tyrone MG tablet 50 Center warfarin 2022-0 Yes 1mg QD Take [address] [facility] (COUMADIN, 2-04 by mouth [facility] JANTOVEN) 1 13:52: daily. Medi tyrone MG tablet 50 Center warfarin 2023-0 Yes 1mg QD Take [address] [facility] (COUMADIN, 2-04 by mouth [facility] JANVEN) 1 13:52: daily. Medi tyrone MG tablet 50 [place] alendronate 0 Yes Univer s 70 mg 1-26 ity of tablet 00:00: [place] [facility] Branch zolpidem 10 0 Yes 1 tablet [facility] mg tablet 1-26 at bedtime ity of 00:00: as needed [place] [facility] Branch alendronate 0 Yes Univer s 70 mg 1-26 ity of tablet 00:00: [place] [address] Medical Branch zolpidem 10 0 Yes 1 tablet [facility] mg tablet 1-26 at bedtime ity of 00:00: as needed [place] [address] Medical Branch alendronate 0 Yes Univer s 70 mg 1-26 ity of tablet 00:00: [place] [address] Medical Branch zolpidem 10 0 Yes 1 tablet [facility] mg tablet 1-26 at bedtime ity of 00:00: as needed [place] [address] Medical Branch alendronate 0 Yes Univer s 70 mg 1-26 ity of tablet 00:00: [place] [address] Medical Branch zolpidem 10 0 Yes 1 tablet [facility] mg tablet 1-26 at bedtime ity of 00:00: as needed [place] [address] Medical Branch alendronate 0 Yes Univer s 70 mg 1-26 ity of tablet 00:00: [place] [address] Medical Branch zolpidem 10 2022-0 Yes 1 tablet [facility] mg tablet 1-26 at bedtime ity of 00:00: as needed [place] [facility] alendronate 2022-0 Yes Univer s 70 mg 1-26 ity of tablet 00:00: [place] [address] Medical Branch zolpidem 10 2022-0 Yes 1 tablet [facility] mg tablet 1-26 at bedtime ity of 00:00: as needed [place] [address] Medical Branch alendronate 2022-0 Yes Univer s 70 mg 1-26 ity of tablet 00:00: [place] [address] Medical Branch zolpidem 10 2022-0 Yes 1 tablet [facility] mg tablet 1-26 at bedtime ity of 00:00: as needed [place] [address] Medical Branch alendronate 2022-0 Yes Univer s 70 mg 1-26 ity of tablet 00:00: [place] [facility] zolpidem 10 2022-0 Yes 1 tablet [facility] mg tablet 1-26 at bedtime ity of 00:00: as needed Medical Branch alendronate 2022-0 Yes Univer s 70 mg 1-26 ity of tablet 00:00: [place] [facility] zolpidem 10 2022-0 Yes 1 tablet [facility] mg tablet 1-26 at bedtime ity of 00:00: as needed Medical Branch alendronate 2022-0 Yes Univer s 70 mg 1-26 ity of tablet 00:00: [place] [facility] zolpidem 10 2022-0 Yes 1 tablet [facility] mg tablet 1-26 at bedtime ity of 00:00: as needed Medical Branch alendronate 2022-0 Yes Univer s 70 mg 1-26 ity of tablet 00:00: [place] [facility] zolpidem 10 2022-0 Yes 1 tablet [facility] mg tablet 1-26 at bedtime ity of 00:00: as needed [place] [facility] alendronate 2022-0 Yes Univer s 70 mg 1-26 ity of tablet 00:00: [place] [facility] zolpidem 10 2022-0 Yes 1 tablet [facility] mg tablet 1-26 at bedtime ity of 00:00: as needed Medical Branch alendronate 2022-0 Yes Univer s 70 mg 1-26 ity of tablet 00:00: [place] [facility] zolpidem 10 2022-0 Yes 1 tablet [facility] mg tablet 1-26 at bedtime ity of 00:00: as needed Medical Branch alendronate 2022-0 Yes Univer s 70 mg 1-26 ity of tablet 00:00: [place] [facility] zolpidem 10 2022-0 Yes 1 tablet [facility] mg tablet 1-26 at bedtime ity of 00:00: as needed [place] [facility] Branch alendronate 2022-0 Yes Univer s 70 mg 1-26 ity of tablet 00:00: [place] [facility] zolpidem 10 2022-0 Yes 1 [...] 70 mg 1-26 ity of tablet 00:00: [place] [facility] zolpidem 10 2022-0 Yes 1 tablet [facility] mg tablet 1-26 at bedtime ity of 00:00: as needed [place] [facility] alendronate 0 Yes Univer s 70 mg 1-26 ity of tablet 00:00: [place] [facility] zolpidem 10 2022-0 Yes 1 tablet [facility] mg tablet 1-26 at bedtime ity of 00:00: as needed [place] [facility] alendronate 0 Yes Univer s 70 mg 1-26 ity of tablet 00:00: [place] [facility] zolpidem 10 2022-0 Yes 1 tablet [facility] mg tablet 1-26 at bedtime ity of 00:00: as needed [place] [facility] alendronate 2022-0 Yes Univer s 70 mg 1-26 ity of tablet 00:00: [place] [facility] zolpidem 10 2022-0 Yes 1 tablet [facility] mg tablet 1-26 at bedtime ity of 00:00: as needed [place] [facility] alendronate 2022-0 Yes Univer s 70 mg 1-26 ity of tablet 00:00: [place] [facility] zolpidem 10 2022-0 Yes 1 tablet [facility] mg tablet 1-26 at bedtime ity of 00:00: as needed [place] [facility] alendronate 2022-0 Yes Univer s 70 mg 1-26 ity of tablet 00:00: [place] [facility] zolpidem 10 2022-0 Yes 1 tablet [facility] mg tablet 1-26 at bedtime ity of 00:00: as needed [place] [facility] alendronate 2022-0 Yes Univer s 70 mg 1-26 ity of tablet 00:00: [place] [facility] zolpidem 10 2022-0 Yes 1 tablet [facility] mg tablet 1-26 at bedtime ity of 00:00: as needed [place] [facility] alendronate 2022-0 Yes Univer s 70 mg 1-26 ity of tablet 00:00: Medical Branch zolpidem 10 2022-0 Yes 1 tablet [facility] mg tablet 1-26 at bedtime ity of 00:00: as needed [place] [facility] alendronate 2022-0 Yes Univer s 70 mg 1-26 ity of tablet 00:00: [place] [facility] zolpidem 10 2022-0 Yes 1 tablet [facility] mg tablet 1-26 at bedtime ity of 00:00: as needed [place] [facility] alendronate 2022-0 Yes Univer s 70 mg 1-26 ity of tablet 00:00: [place] [facility] zolpidem 10 2022-0 Yes 1 tablet Un [facility] mg tablet 1-26 at bedtime ity of 00:00: as needed [place] [facility] alendronate 2022-0 Yes Univer s 70 mg 1-26 ity of tablet 00:00: [place] [facility] zolpidem 10 2022-0 Yes 1 tablet [facility] mg tablet 1-26 at bedtime ity of 00:00: as needed [place] [facility] alendronate 2022-0 Yes Univer s 70 mg 1-26 ity of tablet 00:00: [place] [facility] zolpidem 10 2022-0 Yes 1 tablet [facility] mg tablet 1-26 at bedtime ity of 00:00: as needed Medical Branch alendronate 2022-0 Yes Univer s 70 mg 1-26 ity of tablet 00:00: [place] [facility] zolpidem 10 2022-0 Yes 1 tablet [facility] mg tablet 1-26 at bedtime ity of 00:00: as needed [place] [facility] alendronate 2022-0 Yes Univer s 70 mg 1-26 ity of tablet 00:00: [place] [facility] zolpidem 10 2022-0 Yes 1 tablet [facility] mg tablet 1-26 at bedtime ity of 00:00: as needed [place] [facility] alendronate 2022-0 Yes Univer s 70 mg 1-26 ity of tablet 00:00: [place] [address] Medical Branch zolpidem 10 2022-0 Yes 1 [...] 70 mg 1-26 ity of tablet 00:00: [place] [facility] zolpidem 10 2022-0 Yes 1 tablet [facility] mg tablet 1-26 at bedtime ity of 00:00: as needed Medical Branch alendronate 2022-0 Yes Univer s 70 mg 1-26 ity of tablet 00:00: [place] [facility] zolpidem 10 2022-0 Yes 1 tablet [facility] mg tablet 1-26 at bedtime ity of 00:00: as needed Medical Branch alendronate 2022-0 Yes Univer s 70 mg 1-26 ity of tablet 00:00: [place] [facility] zolpidem 10 2022-0 Yes 1 tablet [facility] mg tablet 1-26 at bedtime ity of 00:00: as needed [place] [facility] alendronate 2022-0 Yes Univer s 70 mg 1-26 ity of tablet 00:00: [place] [facility] zolpidem 10 2022-0 Yes 1 tablet [facility] mg tablet 1-26 at bedtime ity of 00:00: as needed Medical Branch alendronate 2022-0 Yes Univer s 70 mg 1-26 ity of tablet 00:00: [place] [facility] zolpidem 10 2022-0 Yes 1 tablet [facility] mg tablet 1-26 at bedtime ity of 00:00: as needed Medical Branch alendronate 2022-0 Yes Univer s 70 mg 1-26 ity of tablet 00:00: [place] [address] Medical Branch zolpidem 10 2022-0 Yes 1 tablet [facility] mg tablet 1-26 at bedtime ity of 00:00: as needed Medical Branch alendronate 2022-0 Yes Univer s 70 mg 1-26 ity of tablet 00:00: [place] [address] Medical Branch zolpidem 10 2022-0 Yes 1 tablet [facility] mg tablet 1-26 at bedtime ity of 00:00: as needed Medical Branch alendronate 2022-0 Yes Univer s 70 mg 1-26 ity of tablet 00:00: [place] [facility] zolpidem 10 2022-0 Yes 1 tablet [facility] mg tablet 1-26 at bedtime ity of 00:00: as needed Medical Branch alendronate 2022-0 Yes Univer s 70 mg 1-26 ity of tablet 00:00: [place] [facility] zolpidem 10 2022-0 Yes 1 tablet [facility] mg tablet 1-26 at bedtime ity of 00:00: as needed [place] [facility] alendronate 2022-0 Yes Univer s 70 mg 1-26 ity of tablet 00:00: [place] [address] Medical Branch zolpidem 10 2022-0 Yes 1 tablet [facility] mg tablet 1-26 at bedtime ity of 00:00: as needed [place] [facility] alendronate 2022-0 Yes Univer s 70 mg 1-26 ity of tablet 00:00: [place] [address] Medical Branch zolpidem 10 2022-0 Yes 1 tablet [facility] mg tablet 1-26 at bedtime ity of 00:00: as needed [place] [facility] alendronate 2022-0 Yes Univer s 70 mg 1-26 ity of tablet 00:00: [place] [id number] [facility] Branch zolpidem 10 2022-0 Yes 1 tablet [facility] mg tablet 1-26 at bedtime ity of 00:00: as needed Medical Branch alendronate 2022-0 Yes [facility] 70 mg 1-26 ity of tablet 00:00: [place] [id number] [facility] zolpidem 10 2022-0 Yes 1 tablet [facility] mg tablet 1-26 at bedtime ity of 00:00: as needed [place] [facility] alendronate 2022-0 Yes [facility] 70 mg 1-26 ity of tablet 00:00: [place] [id number] [facility] zolpidem 10 2022-0 Yes 1 tablet [facility] mg tablet 1-26 at bedtime ity of 00:00: as needed [place] [facility] alendronate 2022-0 Yes [facility] 70 mg 1-26 ity of tablet 00:00: [address] zolpidem 10 2022- Yes 1 tablet [facility] mg tablet -26 at bedtime ity of 00:00: as needed [address] metoprolol 2022- No [id number] 25mg Take 1 [facility] succinate 1-26 04-27 tablet by ity of XL (TOPROL 00:00: 04:59 mouth in [place] XL) 25 mg 00 :00 the Medical 24 hr morning Branch tablet for 90 days. metoprolol 2022- No [id number] 25mg Take 1 [facility] succinate 1-26 04-27 tablet by ity of XL (TOPROL 00:00: 04:59 mouth in [place] XL) 25 mg 00 :00 the Medical 24 hr morning Branch tablet for 90 days. metoprolol 2022- No [id number] 25mg Take 1 [facility] succinate 1-26 04-27 tablet by ity of XL (TOPROL 00:00: 04:59 mouth in [place] XL) 25 mg 00 :00 the Medical 24 hr morning Branch tablet for 90 days. metoprolol 2022- No [id number] 25mg Take 1 [facility] succinate 1-26 04-27 tablet by ity of XL (TOPROL 00:00: 04:59 mouth in [place] XL) 25 mg 00 :00 the Medical 24 hr morning Branch tablet for 90 days. metoprolol 2022- No [id number] 25mg Take 1 [facility] succinate 1-26 -27 tablet by ity of XL (TOPROL 00:00: 04:59 mouth in [place] XL) 25 mg 00 :00 the Medical 24 hr morning Branch tablet for 90 days. metoprolol 2022- No [id number] 25mg Take 1 [facility] succinate 1-26 04-27 tablet by ity of XL (TOPROL 00:00: 04:59 mouth in [place] XL) 25 mg 00 :00 the Medical 24 hr morning Branch tablet for 90 days. metoprolol 2022- No [id number] 25mg Take 1 [facility] succinate 1-26 02-27 tablet by [facility]y of XL (TOPROL 00:00: 00:00 mouth in [place] XL) 25 mg 00 :00 the Medical 24 hr morning Branch tablet for 90 days. metoprolol 2022- No [id number] 25mg Take 1 [facility] succinate 05-10- tablet by ity of XL (TOPROL 00:00: 00:00 mouth in [place] XL) 25 mg 00 :00 the Medical 24 hr morning Branch tablet for 90 days. metoprolol 2022- No [id number] 25mg Take 1 [facility] succinate 05-10- tablet by ity of XL (TOPROL 00:00: 00:00 mouth in [place] XL) 25 mg 00 :00 the Medical 24 hr morning Branch tablet for 90 days. metoprolol 2022- No [id number] 25mg Take 1 [facility] succinate 05-10 tablet by [facility]y of XL (TOPROL 00:00: 00:00 mouth in [place] XL) 25 mg 00 :00 the Medical 24 hr morning Branch tablet for 90 days. metoprolol 2022- No [id number] 25mg Take 1 [facility] succinate 05-10 tablet by [facility]y of XL (TOPROL 00:00: 00:00 mouth in [place] XL) 25 mg 00 :00 the Medical 24 hr morning Branch tablet for 90 days. Diclofenac 2022-0 Yes [facility] Sodium 1 % 1-25 ity of gel 00:00: [place] 00 [facility] Branch Diclofenac 3-0 3- No [facility] Sodium 1 % 1-25 -27 ity of gel 00:00: 00:00 [place] 00 :00 Medical Branch Diclofenac 3-0 3- No [facility] Sodium 1 % 1-25 -27 ity of gel 00:00: 00:00 [place] 00 :00 Medical Branch Diclofenac 3-0 3- No [facility] Sodium 1 % 1-25 -27 ity of gel 00:00: 00:00 [place] 00 :00 Medical Branch Diclofenac 3-0 3- No [facility] Sodium 1 % 1-25 -27 ity of gel 00:00: 00:00 [place] 00 :00 Medical Branch Diclofenac 3-0 2023- No [facility] Sodium 1 % 1-25 -27 ity of gel 00:00: 00:00 [place] 00 :00 Medical Branch ezetimibe 2021- Yes 10mg Take 1 [facility] (ZETIA) 10 2-19 tablet by [facility] mg tablet 00:00: mouth [place] 00 the Medical morning. Branch metoprolol 2021-04 Yes [id number] 25mg Take 1 [facility] tartrate 25 2-19 tablet by [facility] mg tablet 00:00: mouth [place] 00 the Medical morning Branch and 1 tablet in the evening. ezetimibe 2021-04 Yes 10mg Take 1 [facility] (ZETIA) 10 2-19 tablet by [facility] mg tablet 00:00: mouth [place] 00 the Medical morning. Branch metoprolol 2021-04 Yes [id number] 25mg Take 1 [facility] tartrate 25 2-19 tablet by [facility] mg tablet 00:00: mouth [place] 00 the Medical morning Branch and 1 tablet in the evening. ezetimibe 2021-04 Yes 10mg Take 1 [facility] (ZETIA) 10 2-19 tablet by [facility] mg tablet 00:00: mouth [place] 00 the Medical morning. Branch metoprolol 2021-04 Yes [id number] 25mg Take 1 [facility] tartrate 25 2-19 tablet by [facility] mg tablet 00:00: mouth [place] 00 the Medical morning Branch and 1 tablet in the evening. ezetimibe 2021-04 Yes 10mg Take 1 [facility] (ZETIA) 10 2-19 tablet by [facility] mg tablet 00:00: mouth [place] 00 the Medical morning. Branch metoprolol 2021-04 Yes [id number] 25mg Take 1 [facility] tartrate 25 2-19 tablet by [facility] mg tablet 00:00: mouth [place] 00 the Medical morning Branch and 1 tablet in the evening. ezetimibe 2021-04 Yes 10mg Take 1 [facility] (ZETIA) 10 2-19 tablet by [facility] mg tablet 00:00: mouth [place] 00 the Medical morning. Branch metoprolol 2021-04 Yes [id number] 25mg Take 1 [facility] tartrate 25 2-19 tablet by [facility] mg tablet 00:00: mouth [place] 00 the Medical morning Branch and 1 tablet in the evening. ezetimibe 2021-04 Yes 10mg Take 1 [facility] (ZETIA) 10 2-19 tablet by [facility] mg tablet 00:00: mouth [place] 00 the Medical morning. Branch metoprolol 2021-04 Yes [id number] 25mg Take 1 [facility] tartrate 25 2-19 tablet by [facility] mg tablet 00:00: mouth [place] 00 the Medical morning Branch and 1 tablet in the evening. ezetimibe 2021-04 Yes 10mg Take 1 [facility] (ZETIA) 10 2-19 tablet by [facility] mg tablet 00:00: mouth [place] 00 the Medical morning. Branch metoprolol 2021-04 Yes [id number] 25mg Take 1 [facility] nivers tartrate 25 [...] the Medical morning. Branch metoprolol 2021-04- No [id number] 25mg Take 1 [facility] tartrate 25 2-19 -26 tablet by it y of mg tablet 00:00: 00:00 mouth in [place] 00 :00 the Medical morning Branch and 1 tablet in the evening. metoprolol 2021-04- No [id number] 25mg Take 1 [facility] tartrate 25 2-19 -26 tablet by it y of mg tablet 00:00: 00:00 mouth in [place] 00 :00 the Medical morning Branch and 1 tablet in the evening. warfarin 2021-04 Yes [id number] 1mg Take 1 [facility] mg tablet 2-01 tablet by ity o f 00:00: mouth [place] 00 every Medical evening. Branch Alternate take 1mg x3 days, then 2mg x 4 days warfarin 2021-04 Yes [id number] 1mg Take 1 [facility] mg tablet 2-01 tablet by ity o f 00:00: mouth [place] 00 every Medical evening. Branch Alternate take 1mg x3 days, then 2mg x 4 days dofetilide 2021-04 Yes [id number] 125ug Take 1 [facility] 125 mcg 2-01 capsule by ity of capsule 00:00: mouth [place] 00 every 12 Medical (twelve) Branch hours. warfarin 2021-04 Yes [id number] 1mg Take 1 [facility] mg tablet 2-01 tablet by ity o f 00:00: mouth [place] 00 every Medical evening. Branch Alternate take 1mg x3 days, then 2mg x 4 days dofetilide 2021-04 Yes [id number] 125ug Take 1 [facility] 125 mcg 2-01 capsule by ity of capsule 00:00: mouth [place] 00 every 12 Medical (twelve) Branch hours. warfarin 2021-04 Yes [id number] 1mg Take 1 [facility] mg tablet 2-01 tablet by ity o f 00:00: mouth [place] 00 every Medical evening. Branch Alternate take 1mg x3 days, then 2mg x 4 days dofetilide 2021-04 Yes [id number] 125ug Take 1 [facility] 125 mcg 2-01 capsule by ity of capsule 00:00: mouth [place] 00 every 12 Medical (twelve) Branch hours. warfarin 2021-04 Yes [id number] 1mg Take 1 [facility] mg tablet 2-01 tablet by ity o f 00:00: mouth [place] 00 every Medical evening. Branch Alternate take 1mg x3 days, then 2mg x 4 days dofetilide 2021-04 Yes [id number] 125ug Take 1 [facility] 125 mcg 2-01 capsule by ity of capsule 00:00: mouth [place] 00 every 12 Medical (twelve) Branch hours. warfarin 2021-04 Yes [id number] 1mg Take 1 [facility] mg tablet 2-01 tablet by ity o f 00:00: mouth [place] 00 every Medical evening. Branch Alternate take 1mg x3 days, then 2mg x 4 days dofetilide 2021-04 Yes [id number] 125ug Take 1 [facility] 125 mcg 2-01 capsule by ity of capsule 00:00: mouth [place] 00 every 12 Medical (twelve) Branch hours. warfarin 2021-04 Yes [id number] 1mg Take 1 [facility] mg tablet 2-01 tablet by ity o f 00:00: mouth [place] 00 every Medical evening. Branch Alternate take 1mg x3 days, then 2mg x 4 days dofetilide 2021-04 Yes [id number] 125ug Take 1 [facility] 125 mcg 2-01 capsule by ity of capsule 00:00: mouth [place] 00 every 12 Medical (twelve) Branch hours. warfarin 2021-04 Yes [id number] 1mg Take 1 [facility] mg tablet 2-01 tablet by ity o f 00:00: mouth [place] 00 every Medical evening. Branch Alternate take 1mg x3 days, then 2mg x 4 days dofetilide 2021-04 Yes [id number] 125ug Take 1 [facility] 125 mcg 2-01 capsule by ity of capsule 00:00: mouth [place] 00 every 12 Medical (twelve) Branch hours. warfarin 2021-04 Yes [id number] 1mg Take 1 [facility] mg tablet 2-01 tablet by ity o f 00:00: mouth [place] 00 every Medical evening. Branch Alternate take 1mg x3 days, then 2mg x 4 days dofetilide 2021-04 Yes [id number] 125ug Take 1 [facility] 125 mcg 2-01 capsule by ity of capsule 00:00: mouth [place] 00 every 12 Medical (twelve) Branch hours. warfarin 2021-04 Yes [id number] 1mg Take 1 [facility] mg tablet 2-01 tablet by ity o f 00:00: mouth [place] 00 every Medical evening. Branch Alternate take 1mg x3 days, then 2mg x 4 days dofetilide 2021-04 Yes [id number] 125ug Take 1 [facility] 125 mcg 2-01 capsule by ity of capsule 00:00: mouth [place] 00 every 12 Medical (twelve) Branch hours. warfarin 2021-04 Yes [id number] 1mg Take 1 [facility] mg tablet 2-01 tablet by ity o f 00:00: mouth [place] 00 every Medical evening. Branch Alternate take 1mg x3 days, then 2mg x 4 days dofetilide 2021-04 Yes [id number] 125ug Take 1 [facility] 125 mcg 2-01 capsule by ity of capsule 00:00: mouth [place] 00 every 12 Medical (twelve) Branch hours. warfarin 2021-04 Yes [id number] 1mg Take 1 [facility] mg tablet 2-01 tablet by ity o f 00:00: mouth [place] 00 every Medical evening. Branch Alternate take 1mg x3 days, then 2mg x 4 days dofetilide 2021-04 Yes [id number] 125ug Take 1 [facility] 125 mcg 2-01 capsule by ity of capsule 00:00: mouth [place] 00 every 12 Medical (twelve) Branch hours. warfarin 2021-04 Yes [id number] 1mg Take 1 [facility] mg tablet 2-01 tablet by ity o f 00:00: mouth [place] 00 every Medical evening. Branch Alternate take 1mg x3 days, then 2mg x 4 days dofetilide 2021-04 Yes [id number] 125ug Take 1 [facility] 125 mcg 2-01 capsule by ity of capsule 00:00: mouth [place] 00 every 12 Medical (twelve) Branch hours. warfarin 2021-04 Yes [id number] 1mg Take 1 [facility] mg tablet 2-01 tablet by ity o f 00:00: mouth [place] 00 every Medical evening. Branch Alternate take 1mg x3 days, then 2mg x 4 days dofetilide 2021-04 Yes [id number] 125ug Take 1 [facility] 125 mcg 2-01 capsule by ity of capsule 00:00: mouth [place] 00 every 12 Medical (twelve) Branch hours. warfarin 2021-04 Yes [id number] 1mg Take 1 [facility] mg tablet 2-01 tablet by ity o f 00:00: mouth [place] 00 every Medical evening. Branch Alternate take 1mg x3 days, then 2mg x 4 days dofetilide 2021-04 Yes [id number] 125ug Take 1 [facility] 125 mcg 2-01 capsule by ity of capsule 00:00: mouth [place] 00 every 12 Medical (twelve) Branch hours. warfarin 2021-04 Yes [id number] 1mg Take 1 [facility] mg tablet 2-01 tablet by ity o f 00:00: mouth [place] 00 every Medical evening. Branch Alternate take 1mg x3 days, then 2mg x 4 days dofetilide 2021-04 Yes [id number] 125ug Take 1 [facility] 125 mcg 2-01 capsule by ity of capsule 00:00: mouth [place] 00 every 12 Medical (twelve) Branch hours. warfarin 2021-04- No [id number] 1mg Take 1 [facility] mg tablet 2-01 02-27 tablet by ity of 00:00: 00:00 mouth [place] 00 :00 every Medical evening. Branch Alternate take 1mg x3 days, then 2mg x 4 days dofetilide 2021-04- No [id number] 125ug Take 1 [facility] 125 mcg 05-16 capsule by ity o f capsule 00:00: 00:00 mouth [place] 00 :00 every 12 Medical (twelve) Branch hours. warfarin 1 2021-04- No [id number] 1mg Take 1 [facility] mg tablet 05-16 tablet by ity of 00:00: 00:00 mouth [place] 00 :00 every Medical evening. Branch Alternate take 1mg x3 days, then 2mg x 4 days dofetilide 2021-04- No [id number] 125ug Take 1 [facility] 125 mcg 05-16 capsule by ity o f capsule 00:00: 00:00 mouth [place] 00 :00 every 12 Medical (twelve) Branch hours. warfarin 1 2021-04- No [id number] 1mg Take 1 [facility] mg tablet 05-16 tablet by ity of 00:00: 00:00 mouth [place] 00 :00 every Medical evening. Branch Alternate take 1mg x3 days, then 2mg x 4 days dofetilide 2021-04- No [id number] 125ug Take 1 [facility] 125 mcg 05-16 capsule by ity o f capsule 00:00: 00:00 mouth [place] 00 :00 every 12 Medical (twelve) Branch hours. warfarin 1 2021-04- No [id number] 1mg Take 1 [facility] mg tablet 05-16 tablet by ity of 00:00: 00:00 mouth [place] 00 :00 every Medical evening. Branch Alternate take 1mg x3 days, then 2mg x 4 days dofetilide 2021-04- No [id number] 125ug Take 1 [facility] 125 mcg 05-16 capsule by ity o f capsule 00:00: 00:00 mouth [place] 00 :00 every 12 Medical (twelve) Branch hours. warfarin 1 2021-04- No [id number] 1mg Take 1 [facility] mg tablet 05-16 tablet by ity of 00:00: 00:00 mouth [place] 00 :00 every Medical evening. Branch Alternate take 1mg x3 days, then 2mg x 4 days dofetilide 2021-04- No [id number] 125ug Take 1 [facility] 125 mcg 05-16 capsule by ity o f capsule 00:00: 00:00 mouth [place] 00 :00 every 12 Medical (twelve) Branch hours. warfarin 2021-04 Yes [id number] 1mg Take 1 [facility] mg tablet 1-01 tablet by ity o f 00:00: mouth [place] 00 every Medical evening. Branch Alternate take 1mg x4 days, then 2mg x 3 days warfarin 2021-04 Yes [id number] 1mg Take 1 [facility] mg tablet 1-01 tablet by ity o f 00:00: mouth [place] 00 every Medical evening. Branch Alternate take 1mg x4 days, then 2mg x 3 days warfarin 2021-04 Yes [id number] 1mg Take 1 [facility] mg tablet 1-01 tablet by ity o f 00:00: mouth [place] 00 every Medical evening. Branch Alternate take 1mg x4 days, then 2mg x 3 days warfarin 2021-04 Yes [id number] 1mg Take 1 [facility] mg tablet 1-01 tablet by ity o f 00:00: mouth [place] 00 every Medical evening. Branch Alternate take 1mg x4 days, then 2mg x 3 days warfarin 2021-04 Yes [id number] 1mg Take 1 [facility] mg tablet 1-01 tablet by ity o f 00:00: mouth [place] 00 every Medical evening. Branch Alternate take 1mg x4 days, then 2mg x 3 days warfarin 2021-04 Yes [id number] 1mg Take 1 [facility] mg tablet 1-01 tablet by ity o f 00:00: mouth [place] 00 every Medical evening. Branch Alternate take 1mg x4 days, then 2mg x 3 days warfarin 2021-04 Yes [id number] 1mg Take 1 [facility] mg tablet 1-01 tablet by ity o f 00:00: mouth [place] 00 every Medical evening. Branch Alternate take 1mg x4 days, then 2mg x 3 days warfarin 2021-04 Yes [id number] 1mg Take 1 [facility] mg tablet 1-01 tablet by ity o f 00:00: mouth [place] 00 every Medical evening. Branch Alternate take 1mg x4 days, then 2mg x 3 days warfarin 2021-04 Yes [id number] 1mg Take 1 [facility] mg tablet 1 tablet by ity o f 00:00: mouth [place] 00 every Medical evening. Branch Alternate take 1mg x4 days, then 2mg x 3 days warfarin 2021-04 Yes [id number] 1mg Take 1 [facility] mg tablet 1- tablet by ity o f 00:00: mouth [place] 00 every Medical evening. Branch Alternate take 1mg x4 days, then 2mg x 3 days warfarin 2021-04 Yes [id number] 1mg Take 1 [facility] mg tablet 1 tablet by ity o f 00:00: mouth [place] 00 every Medical evening. Branch Alternate take 1mg x4 days, then 2mg x 3 days warfarin 2021-04- No [id number] 1mg Take 1 [facility] mg tablet 04-15 tablet by ity of 00:00: 00:00 mouth [place] 00 :00 every Medical evening. Branch Alternate take 1mg x4 days, then 2mg x 3 days warfarin 2021-04 Yes [id number] 1mg Take 1 [facility] mg tablet 0-17 tablet by ity o f 00:00: mouth [place] 00 every Medical evening. Branch Alternate take 1mg x4 days, then 2mg x 3 days warfarin 2021-04- No [id number] 1mg Take 1 [facility] mg tablet 0-17 [...] Medical morning. Branch warfarin 1 2021-0 Yes [id number] 1mg Take 1 [facility] mg tablet 8-24 tablet by ity o f 00:00: mouth [place] 00 every Medical evening. Branch Alternate take 1mg x2days, then 2mg x 1 day warfarin 1 Yes [id number] 1mg Take 1 [facility] mg tablet 8-24 tablet by ity o f 00:00: mouth [place] 00 every Medical evening. Branch Alternate take 1mg x2days, then 2mg x 1 day warfarin 1 Yes [id number] 1mg Take 1 [facility] mg tablet 8-24 tablet by ity o f 00:00: mouth [place] 00 every Medical evening. Branch Alternate take 1mg x2days, then 2mg x 1 day warfarin 1 Yes [id number] 1mg Take 1 [facility] mg tablet 8-24 tablet by ity o f 00:00: mouth [place] 00 every Medical evening. Branch Alternate take 1mg x2days, then 2mg x 1 day warfarin Yes [id number] 1mg Take 1 [facility] mg tablet 8-24 tablet by ity o f 00:00: mouth [place] 00 every Medical evening. Branch Alternate take 1mg x2days, then 2mg x 1 day warfarin Yes [id number] 1mg Take 1 [facility] mg tablet 8-24 tablet by ity o f 00:00: mouth [place] 00 every Medical evening. Branch Alternate take 1mg x2days, then 2mg x 1 day warfarin Yes [id number] 1mg Take 1 [facility] mg tablet 8-24 tablet by ity o f 00:00: mouth [place] 00 every Medical evening. Branch Alternate take 1mg x2days, then 2mg x 1 day warfarin Yes [id number] 1mg Take 1 [facility] mg tablet 8-24 tablet by ity o f 00:00: mouth [place] 00 every Medical evening. Branch Alternate take 1mg x2days, then 2mg x 1 day warfarin 1 Yes [id number] 1mg Take 1 [facility] mg tablet 8-24 tablet by ity o f 00:00: mouth [place] 00 every Medical evening. Branch Alternate take 1mg x2days, then 2mg x 1 day warfarin 1 Yes [id number] 1mg Take 1 [facility] mg tablet 8-24 tablet by ity o f 00:00: mouth [place] 00 every Medical evening. Branch Alternate take 1mg x2days, then 2mg x 1 day warfarin 1 Yes [id number] 1mg Take 1 [facility] mg tablet 8-24 tablet by ity o f 00:00: mouth [place] 00 every Medical evening. Branch Alternate take 1mg x2days, then 2mg x 1 day warfarin 1 Yes [id number] 1mg Take 1 [facility] mg tablet 8-24 tablet by ity o f 00:00: mouth [place] 00 every Medical evening. Branch Alternate take 1mg x2days, then 2mg x 1 day warfarin 1 Yes [id number] 1mg Take 1 [facility] mg tablet 8-24 tablet by ity o f 00:00: mouth [place] 00 every Medical evening. Branch Alternate take 1mg x2days, then 2mg x 1 day warfarin 1 2021- No [id number] 1mg Take 1 [facility] mg tablet 8-24 10-17 tablet by ity of 00:00: 00:00 mouth [place] 00 :00 every Medical evening. Branch Alternate take 1mg x2days, then 2mg x 1 day warfarin 1 2021- No [id number] 2mg Take 2 [facility] mg tablet 8 08-24 tablets by ity of 00:00: 00:00 mouth [place] 00 :00 every Medical evening. Branch dofetilide 2021- No [id number] 125ug Take 1 [facility] 125 mcg 8-19 08-27 capsule by ity o f capsule 00:00: 04:59 mouth [place] 00 :00 every 12 Medical (twelve) Branch hours for 7 days. dofetilide 2021- No [id number] 125ug Take 1 [facility] 125 mcg 8-19 08-27 capsule by ity o f capsule 00:00: 04:59 mouth [place] 00 :00 every 12 Medical (twelve) Branch hours for 7 days. dofetilide 2021- No [id number] 125ug Take 1 [facility] 125 mcg 8-17 11-16 capsule by ity o f capsule 00:00: 05:59 mouth [place] 00 :00 every 12 Medical (twelve) Branch hours for 90 days. dofetilide 2021- No [id number] 125ug Take 1 [facility] 125 mcg 8-17 11-16 capsule by ity o f capsule 00:00: 05:59 mouth [place] 00 :00 every 12 Medical (twelve) Branch hours for 90 days. dofetilide 2021- No [id number] 125ug Take 1 [facility] 125 mcg 8-17 11-16 capsule by ity o f capsule 00:00: 05:59 mouth [place] 00 :00 every 12 Medical (twelve) Branch hours for 90 days. dofetilide 2021- No [id number] 125ug Take 1 [facility] 125 mcg 8-17 11-16 capsule by ity o f capsule 00:00: 05:59 mouth [place] 00 :00 every 12 Medical (twelve) Branch hours for 90 days. dofetilide 2021- No [id number] 125ug Take 1 [facility] 125 mcg 8-17 11-16 capsule by ity o f capsule 00:00: 05:59 mouth [place] 00 :00 every 12 Medical (twelve) Branch hours for 90 days. dofetilide 2021- No [id number] 125ug Take 1 [facility] 125 mcg 8-17 11-16 capsule by ity o f capsule 00:00: 05:59 mouth [place] 00 :00 every 12 Medical (twelve) Branch hours for 90 days. dofetilide 2021- No [id number] 125ug Take 1 [facility] 125 mcg 8-17 11-16 capsule by ity o f capsule 00:00: 05:59 mouth [place] 00 :00 every 12 Medical (twelve) Branch hours for 90 days. dofetilide 2021- No [id number] 125ug Take 1 [facility] 125 mcg 8-17 11-16 capsule by ity o f capsule 00:00: 05:59 mouth [place] 00 :00 every 12 Medical (twelve) Branch hours for 90 days. dofetilide 2021- No [id number] 125ug Take 1 [facility] 125 mcg 8-17 11-16 capsule by ity o f capsule 00:00: 05:59 mouth [place] 00 :00 every 12 Medical (twelve) Branch hours for 90 days. dofetilide 2021- No [id number] 125ug Take 1 [facility] 125 mcg 8-17 11-16 capsule by ity o f capsule 00:00: 05:59 mouth [place] 00 :00 every 12 Medical (twelve) Branch hours for 90 days. dofetilide 2021- No [id number] 125ug Take 1 [facility] 125 mcg 8-17 11-16 capsule by ity o f capsule 00:00: 05:59 mouth [place] 00 :00 every 12 Medical (twelve) Branch hours for 90 days. dofetilide 2021- No [id number] 125ug Take 1 [facility] 125 mcg 8-17 11-16 capsule by ity o f capsule 00:00: 05:59 mouth [place] 00 :00 every 12 Medical (twelve) Branch hours for 90 days. dofetilide 2- No [id number] 125ug Take 1 [facility] 125 mcg 8-17 11-16 capsule by ity o f capsule 00:00: 05:59 mouth [place] 00 :00 every 12 Medical (twelve) Branch hours for 90 days. dofetilide 2021- No [id number] 125ug Take 1 [facility] 125 mcg 8-17 11-16 capsule by ity o f capsule 00:00: 05:59 mouth [place] 00 :00 every 12 Medical (twelve) Branch hours for 90 days. dofetilide 2021- No [id number] 125ug Take 1 [facility] 125 mcg 8-17 11-16 capsule by ity o f capsule 00:00: 05:59 mouth [place] 00 :00 every 12 Medical (twelve) Branch hours for 90 days. dofetilide 2021- No [id number] 125ug Take 1 [facility] 125 mcg 8-17 11-16 capsule by ity o f capsule 00:00: 05:59 mouth [place] 00 :00 every 12 Medical (twelve) Branch hours for 90 days. dofetilide 2021- No [id number] 125ug Take 1 [facility] 125 mcg 8-17 11-16 capsule by ity o f capsule 00:00: 05:59 mouth [place] 00 :00 every 12 Medical (twelve) Branch hours for 90 days. dofetilide 2021- No [id number] 125ug Take 1 [facility] 125 mcg 8-17 11-16 capsule by ity o f capsule 00:00: 05:59 mouth [place] 00 :00 every 12 Medical (twelve) Branch hours for 90 days. dofetilide 2021- No [id number] 125ug Take 1 [facility] 125 mcg 8-17 11-16 capsule by ity o f capsule 00:00: 05:59 mouth [place] 00 :00 every 12 Medical (twelve) Branch hours for 90 days. dofetilide 2- No [id number] 125ug Take 1 [facility] 125 mcg 8-17 11-16 capsule by ity o f capsule 00:00: 05:59 mouth [place] 00 :00 every 12 Medical (twelve) Branch hours for 90 days. atorvastati 2021-0 Yes 80mg Take 1 [facility] ers n 80 mg 7-12 tablet by ity of tablet 00:00: mouth at [place] [address] bedtime. Medical Branch atorvastati 2021-0 Yes 80mg Take 1 [facility] ers n 80 mg 7-12 tablet by ity of tablet 00:00: mouth at [place] [address] bedtime. Medical Branch atorvastati 2021-0 Yes 80mg Take 1 [facility] ers n 80 mg 7-12 tablet by ity of tablet 00:00: mouth at [place] [address] bedtime. Medical Branch atorvastati 2021-0 Yes 80mg Take 1 [facility] ers n 80 mg 7-12 tablet by ity of tablet 00:00: mouth at [place] [address] bedtime. Medical Branch atorvastati 2021-0 Yes 80mg Take 1 [facility] ers n 80 mg 7-12 tablet by ity of tablet 00:00: mouth at [place] [address] bedtime. Medical Branch atorvastati 2021-0 Yes 80mg Take 1 [facility] ers n 80 mg 7-12 tablet by ity of tablet 00:00: mouth at [place] [address] bedtime. Medical Branch atorvastati 2021-0 Yes 80mg Take 1 [facility] ers n 80 mg 7-12 tablet by ity of tablet 00:00: mouth at [place] [address] bedtime. Medical Branch atorvastati 2021-0 Yes 80mg Take 1 [facility] ers n 80 mg 7-12 tablet by ity of tablet 00:00: mouth at [place] [address] bedtime. Medical Branch atorvastati 2021-0 Yes 80mg Take 1 [facility] ers n 80 mg 7-12 tablet by ity of tablet 00:00: mouth at [place] [address] bedtime. Medical Branch atorvastati 2021-0 Yes 80mg Take 1 [facility] ers n 80 mg 7-12 tablet by ity of tablet 00:00: mouth at [place] [address] bedtime. Medical Branch atorvastati 2021-0 Yes 80mg Take 1 [facility] ers n 80 mg 7-12 tablet by ity of tablet 00:00: mouth at [place] [address] bedtime. Medical Branch atorvastati 2021-0 Yes 80mg Take 1 [facility] ers n 80 mg 7-12 tablet by ity of tablet 00:00: mouth at [place] [address] bedtime. Medical Branch atorvastati 2022-0 Yes 80mg Take 1 [facility] ers n 80 mg 7-12 tablet by ity of tablet 00:00: mouth at [place] [address] bedtime. Medical Branch atorvastati 2022-0 Yes 80mg Take 1 [facility] ers n 80 mg 7-12 tablet by ity of tablet 00:00: mouth at [place] [address] bedtime. [facility] atorvastati 2-0 Yes 80mg Take 1 [facility] n 80 mg 7-12 tablet by [facility] tablet 00:00: mouth at [place] [address] bedtime. [facility] atorvastati 2-0 Yes 80mg Take 1 [facility] n 80 mg 7-12 tablet by [facility] of tablet 00:00: mouth at [place] [address] bedtime. [facility] atorvastati 2-0 Yes 80mg Take 1 [facility] n 80 mg 7-12 tablet by [facility] of tablet 00:00: mouth at [place] [address] bedtime. [facility] atorvastati 2-0 Yes 80mg Take 1 [facility] n 80 mg 7-12 tablet by it[facility] of tablet 00:00: mouth at [place] [address] bedtime. [facility] atorvastati 2-0 Yes 80mg Take 1 [facility] n 80 mg 7-12 tablet by [facility] of tablet 00:00: mouth at [place] [address] bedtime. [facility] atorvastati 2-0 Yes 80mg Take 1 [facility] n 80 mg 7-12 tablet by [facility] of tablet 00:00: mouth at [place] [address] bedtime. [facility] atorvastati 2022-0 Yes 80mg Take 1 [facility] n 80 mg 7-12 tablet by [facility] of tablet 00:00: mouth at [place] [address] bedtime. [facility] atorvastati 2022-0 Yes 80mg Take 1 [facility] n 80 mg 7-12 tablet by it[facility] of tablet 00:00: mouth at [place] [address] bedtime. [facility] atorvastati 2022-0 Yes 80mg Take 1 [facility] n 80 mg 7-12 tablet by [facility] of tablet 00:00: mouth at [place] [address] bedtime. [facility] atorvastati 2022-0 Yes 80mg Take 1 [facility] n 80 mg 7-12 tablet by [facility] of tablet 00:00: mouth at [place] [address] bedtime. [facility] atorvastati 2022-0 Yes 80mg Take 1 [facility] n 80 mg 7-12 tablet by [facility] of tablet 00:00: mouth at [place] [address] bedtime. [facility] atorvastati 2022-0 Yes 80mg Take 1 [facility] n 80 mg 7-12 tablet by it[facility] of tablet 00:00: mouth at [place] [address] bedtime. [facility] atorvastati 2022-0 Yes 80mg Take 1 [facility] n 80 mg 7-12 tablet by [facility] of tablet 00:00: mouth at [place] bedtime. [facility] atorvastati 2022-0 Yes 80mg Take 1 [facility] n 80 mg 7-12 tablet by [facility] of tablet 00:00: mouth at [place] [address] bedtime. [facility] atorvastati 2022-0 Yes 80mg Take 1 [facility] n 80 mg 7-12 tablet by [facility] of tablet 00:00: mouth at [place] [address] bedtime. [facility] atorvastati 2-0 Yes 80mg Take 1 [facility] n 80 mg 7-12 tablet by [facility] of tablet 00:00: mouth at [place] [address] bedtime. [facility] atorvastati 2-0 Yes 80mg Take 1 [facility] n 80 mg 7-12 tablet by [facility] of tablet 00:00: mouth at [place] [address] bedtime. [facility] atorvastati 2-0 Yes 80mg Take 1 [facility] 80 mg 7-12 tablet by [facility] of tablet 00:00: mouth at [place] [address] bedtime. [facility] atorvastati 2022-0 Yes 80mg Take 1 [facility] n 80 mg 7-12 tablet by [facility] of tablet 00:00: mouth at [place] [address] bedtime. [facility] atorvastati 2022-0 Yes 80mg Take 1 [facility] n 80 mg 7-12 tablet by [facility] of tablet 00:00: mouth at [place] [address] bedtime. [facility] atorvastati 2022-0 Yes 80mg Take 1 [facility] 80 mg 7-12 tablet by it[facility] of tablet 00:00: mouth at [place] [address] bedtime. [facility] atorvastati 2022-0 Yes 80mg Take 1 [facility] 80 mg 7-12 tablet by [facility] of tablet 00:00: mouth at [place] [address] bedtime. [facility] atorvastati 2022-0 Yes 80mg Take 1 [facility] 80 mg 7-12 tablet by [facility] of tablet 00:00: mouth at [place] [address] bedtime. [facility] atorvastati 2022-0 Yes 80mg Take 1 [facility] 80 mg 7-12 tablet by [facility] of tablet 00:00: mouth at [place] [address] bedtime. [facility] atorvastati 2022-0 Yes 80mg Take 1 [facility] 80 mg 7-12 tablet by it[facility] of tablet 00:00: mouth at [place] [address] bedtime. [facility] atorvastati 2-0 Yes 80mg Take 1 [facility] 80 mg 7-12 tablet by [facility] of tablet 00:00: mouth at [place] [address] bedtime. [facility] atorvastati 2-0 Yes 80mg Take 1 [facility] 80 mg 7-12 tablet by [facility] of tablet 00:00: mouth at [place] [address] bedtime. [facility] atorvastati 2-0 Yes 80mg Take 1 [facility] 80 mg 7-12 tablet by [facility] of tablet 00:00: mouth at [place] [address] bedtime. [facility] atorvastati 2-0 Yes 80mg Take 1 [facility] 80 mg 7-12 tablet by [facility] of tablet 00:00: mouth at [place] [address] bedtime. [facility] atorvastati 2-0 Yes 80mg Take 1 [facility] 80 mg 7-12 tablet by [facility] of tablet 00:00: mouth at [place] [address] bedtime. [facility] atorvastati 2-0 Yes 80mg Take 1 [facility] 80 mg 7-12 tablet by [facility] of tablet 00:00: mouth at [place] [address] bedtime. [facility] atorvastati 2022-0 Yes 80mg Take 1 [facility] 80 mg 7-12 tablet by [facility] of tablet 00:00: mouth at [place] [address] bedtime. [facility] atorvastati 2022-0 Yes 80mg Take 1 [facility] 80 mg 7-12 tablet by [facility] of tablet 00:00: mouth at [place] [address] bedtime. [facility] atorvastati 2022-0 Yes 80mg Take 1 [facility] 80 mg 7-12 tablet by [facility] of tablet 00:00: mouth at [place] [address] bedtime. [facility] atorvastati 2022-0 Yes 80mg Take 1 [facility] 80 mg 7-12 tablet by [facility] of tablet 00:00: mouth at [place] [address] bedtime. [facility] atorvastati 2022-0 Yes 80mg Take 1 [facility] 80 mg 7-12 tablet by [facility] of tablet 00:00: mouth at [place] [address] bedtime. [facility] atorvastati 2022-0 Yes 80mg Take 1 [facility] 80 mg 7-12 tablet by ity of tablet 00:00: mouth at [place] [address] bedtime. [facility] atorvastati 2022-0 Yes 80mg Take 1 [facility] 80 mg 7-12 tablet by [facility] of tablet 00:00: mouth at [place] bedtime. [facility] atorvastati 2022-0 Yes 80mg Take 1 [facility] 80 mg 7-12 tablet by it[facility] of tablet 00:00: mouth at [place] [address] bedtime. [facility] atorvastati 2022-0 Yes 80mg Take 1 [facility] 80 mg 7-12 tablet by it[facility] of tablet 00:00: mouth at [place] [address] bedtime. [facility] atorvastati 2-0 Yes 80mg Take 1 [facility] 80 mg 7-12 tablet by ity of tablet 00:00: mouth at [place] [address] bedtime. [facility] atorvastati 2-0 Yes 80mg Take 1 [facility] 80 mg 7-12 tablet by [facility] of tablet 00:00: mouth at [place] [address] bedtime. [facility] atorvastati 2-0 Yes 80mg Take 1 [facility] 80 mg 7-12 tablet by [facility] of tablet 00:00: mouth at [place] [address] bedtime. [facility] atorvastati 2022-0 Yes 80mg Take 1 [facility] 80 mg 7-12 tablet by ity of tablet 00:00: mouth at [place] [address] bedtime. [facility] atorvastati 2022-0 Yes 80mg Take 1 [facility] 80 mg 7-12 tablet by ity of tablet 00:00: mouth at [place] [address] bedtime. [facility] atorvastati 2022-0 Yes 80mg Take 1 [facility] 80 mg 7-12 tablet by [facility] of tablet 00:00: mouth at [place] [address] bedtime. [facility] atorvastati 2022-0 Yes 80mg Take 1 [facility] 80 mg 7-12 tablet by it[facility] of tablet 00:00: mouth at [place] [address] bedtime. [facility] atorvastati 2022-0 Yes 80mg Take 1 [facility] 80 mg 7-12 tablet by ity of tablet 00:00: mouth at [place] [address] bedtime. [facility] atorvastati 2022-0 Yes 80mg Take 1 [facility] 80 mg 7-12 tablet by ity of tablet 00:00: mouth at [place] [address] bedtime. [facility] atorvastati 2022-0 Yes 80mg Take 1 [facility] 80 mg 7-12 tablet by it[facility] of tablet 00:00: mouth at [place] [address] bedtime. [facility] atorvastati 2-0 Yes 80mg Take 1 [facility] 80 mg 7-12 tablet by [facility] of tablet 00:00: mouth at [place] [address] bedtime. [facility] atorvastati 2-0 Yes 80mg Take 1 [facility] 80 mg 7-12 tablet by [facility] of tablet 00:00: mouth at [place] [address] bedtime. [facility] atorvastati 2-0 Yes 80mg Take 1 [facility] 80 mg 7-12 tablet by [facility] of tablet 00:00: mouth at [place] [address] bedtime. [facility] atorvastati 2-0 Yes 80mg Take 1 [facility] 80 mg 7-12 tablet by [facility] of tablet 00:00: mouth at [place] [address] bedtime. [facility] atorvastati 2-0 Yes 80mg Take 1 [facility] 80 mg 7-12 tablet by [facility] of tablet 00:00: mouth at [place] [address] bedtime. [facility] atorvastati 2-0 Yes 80mg Take 1 [facility] 80 mg 7-12 tablet by [facility] of tablet 00:00: mouth at [place] [address] bedtime. [facility] atorvastati 2022-0 Yes 80mg Take 1 [facility] 80 mg 7-12 tablet by [facility] of tablet 00:00: mouth at [place] [address] bedtime. [facility] atorvastati 2022-0 Yes 80mg Take 1 [facility] 80 mg 7-12 tablet by [facility] of tablet 00:00: mouth at [place] [address] bedtime. [facility] atorvastati 2022-0 Yes 80mg Take 1 [facility] 80 mg 7-12 tablet by [facility] of tablet 00:00: mouth at [place] [address] bedtime. [facility] atorvastati 2022-0 Yes 80mg Take 1 [facility] 80 mg 7-12 tablet by [facility] of tablet 00:00: mouth at [place] [address] bedtime. [facility] atorvastati 2022-0 Yes 80mg Take 1 [facility] 80 mg 7-12 tablet by [facility] of tablet 00:00: mouth at [place] [address] bedtime. [facility] atorvastati 2021-0 Yes 80mg Take 1 [facility] 80 mg 7-12 tablet by [facility] of tablet 00:00: mouth at [place] [address] bedtime. [facility] atorvastati 2021-0 Yes 80mg Take 1 [facility] 80 mg 7-12 tablet by [facility] of tablet 00:00: mouth at [place] 00 bedtime. [facility] atorvastati 2021-0 Yes 80mg Take 1 [facility] 80 mg 7-12 tablet by [facility] of tablet 00:00: mouth at [place] [address] bedtime. [facility] atorvastati 2021-0 Yes 80mg Take 1 [facility] 80 mg 7-12 tablet by [facility] of tablet 00:00: mouth at [place] [address] bedtime. [facility] atorvastati 2021-0 Yes 80mg Take 1 [facility] 80 mg 7-12 tablet by [facility] of tablet 00:00: mouth at [place] [address] bedtime. [facility] atorvastati 2021-0 Yes 80mg Take 1 [facility] 80 mg 7-12 tablet by [facility] of tablet 00:00: mouth at [place] [address] bedtime. [facility] atorvastati 2021-0 Yes 80mg Take 1 [facility] 80 mg 7-12 tablet by [facility] of tablet 00:00: mouth at [place] [address] bedtime. [facility] atorvastati 2021-0 Yes 80mg Take 1 [facility] 80 mg 7-12 tablet by [facility] of tablet 00:00: mouth at [place] [address] bedtime. [facility] atorvastati 2021-0 Yes 80mg Take 1 [facility] 80 mg 7-12 tablet by [facility] of tablet 00:00: mouth at [place] [address] bedtime. [facility] atorvastati 2021-0 3- No 80mg Take 1 [facility] vers n 80 mg 7-12 07-12 tablet by [facility] of tablet 00:00: 00:00 mouth at [place] 00 :00 bedtime. [facility] ezetimibe 2021-0 Yes 10mg Take 1 [facility] s (ZETIA) 10 5-20 tablet by it[facility] of mg tablet 00:00: mouth [place] [address] daily. [facility] ezetimibe 2021-0 Yes 10mg [...] mg tablet 00:00: mouth [place] 00 daily. [facility] ezetimibe 2021- No 10mg Take 1 [facility] rs (ZETIA) 10 5-20 09-02 tablet by ity of mg tablet 00:00: 00:00 mouth [place] 00 :00 daily. [facility] furosemide 0 Yes [id number] 40mg Take 2 [facility] 20 mg 2-16 02 tablets by [facility] of tablet 00:00: mouth [place] 00 daily. [facility] furosemide 0 Yes [id number] 40mg Take 2 [facility] 20 mg 2-16 02 tablets by it[facility] of tablet 00:00: mouth [place] 00 daily. [facility] furosemide 2021-0 Yes [id number] 40mg Take 2 [facility] 20 mg 2-16 02 tablets by [facility] of tablet 00:00: mouth [place] 00 daily. [facility] furosemide 0 Yes [id number] 40mg Take 2 [facility] 20 mg 2-16 02 tablets by [facility] of tablet 00:00: mouth [place] 00 daily. [facility] furosemide 2021-0 Yes [id number] 40mg Take 2 [facility] 20 mg 2-16 02 tablets by [facility] of tablet 00:00: mouth [place] 00 daily. [facility] furosemide 2021-0 Yes [id number] 40mg Take 2 [facility] 20 mg 2-16 02 tablets by [facility] of tablet 00:00: mouth [place] 00 daily. [facility] furosemide 2021-0 Yes [id number] 40mg Take 2 [facility] 20 mg 2-16 02 tablets by [facility] of tablet 00:00: mouth [place] 00 daily. [facility] furosemide 2021-0 Yes [id number] 40mg Take 2 [facility] 20 mg 2-16 02 tablets by [facility] of tablet 00:00: mouth [place] 00 daily. [facility] furosemide 2021-0 Yes [id number] 40mg Take 2 [facility] 20 mg 2-16 02 tablets by [facility] of tablet 00:00: mouth [place] 00 daily. [facility] furosemide 2021-0 Yes [id number] 40mg Take 2 [facility] 20 mg 2-16 02 tablets by [facility] of tablet 00:00: mouth [place] 00 daily. [facility] furosemide 0 Yes [id number] 40mg Take 2 [facility] 20 mg 2-16 02 tablets by [facility] of tablet 00:00: mouth [place] 00 daily. [facility] furosemide 0 Yes [id number] 40mg Take 2 [facility] 20 mg 2-16 02 tablets by [facility] of tablet 00:00: mouth [place] 00 daily. [facility] furosemide 0 Yes [id number] 40mg Take 2 [facility] 20 mg 2-16 02 tablets by [facility] of tablet 00:00: mouth [place] 00 daily. [facility] furosemide 2021-0 Yes [id number] 40mg Take 2 [facility] 20 mg 2-16 02 tablets by [facility] of tablet 00:00: mouth [place] 00 daily. [facility] furosemide 2021-0 Yes [id number] 40mg Take 2 [facility] 20 mg 2-16 02 tablets by [facility] of tablet 00:00: mouth [place] 00 daily. [facility] furosemide 2021-0 Yes [id number] 40mg Take 2 [facility] 20 mg 2-16 02 tablets by [facility] of tablet 00:00: mouth [place] 00 daily. [facility] furosemide 2021-0 Yes [id number] 40mg Take 2 [facility] 20 mg 2-16 02 tablets by [facility] of tablet 00:00: mouth [place] 00 daily. [facility] furosemide 2021-0 Yes [id number] 40mg Take 2 [facility] 20 mg 2-16 02 tablets by [facility] of tablet 00:00: mouth [place] 00 daily. [facility] furosemide 2021-0 Yes [id number] 40mg Take 2 [facility] 20 mg 2-16 02 tablets by [facility] of tablet 00:00: mouth [place] 00 daily. [facility] furosemide 2021-0 Yes [id number] 40mg Take 2 [facility] 20 mg 2-16 02 tablets by [facility] of tablet 00:00: mouth [place] 00 daily. [facility] furosemide 2021-0 Yes [id number] 40mg Take 2 [facility] 20 mg 2-16 02 tablets by [facility] of tablet 00:00: mouth [place] 00 daily. [facility] furosemide 2021-0 Yes [id number] 40mg Take 2 [facility] 20 mg 2-16 02 tablets by [facility] of tablet 00:00: mouth [place] 00 daily. [facility] furosemide 2021-0 Yes [id number] 40mg Take 2 [facility] 20 mg 2-16 02 tablets by [facility] of tablet 00:00: mouth [place] 00 daily. [facility] furosemide 2021-0 Yes [id number] 40mg Take 2 [facility] 20 mg 2-16 02 tablets by [facility] of tablet 00:00: mouth [place] 00 daily. [facility] furosemide 2021-0 Yes [id number] 40mg Take 2 [facility] 20 mg 2-16 02 tablets by [facility] of tablet 00:00: mouth [place] 00 daily. [facility] furosemide 2021-0 Yes [id number] 40mg Take 2 [facility] 20 mg 2-16 02 tablets by [facility] of tablet 00:00: mouth [place] 00 daily. [facility] furosemide 2021-0 Yes [id number] 40mg Take 2 [facility] 20 mg 2-16 02 tablets by it[facility] of tablet 00:00: mouth [place] 00 daily. [facility] furosemide 2021-0 Yes [id number] 40mg Take 2 [facility] 20 mg 2-16 02 tablets by it[facility] of tablet 00:00: mouth [place] 00 daily. [facility] furosemide 2021-0 Yes [id number] 40mg Take 2 [facility] 20 mg 2-16 02 tablets by it[facility] of tablet 00:00: mouth [place] 00 daily. [facility] furosemide 2021-0 Yes [id number] 40mg Take 2 [facility] 20 mg 2-16 02 tablets by [facility] of tablet 00:00: mouth [place] 00 daily. [facility] furosemide 2021-0 Yes [id number] 40mg Take 2 [facility] 20 mg 2-16 02 tablets by [facility] of tablet 00:00: mouth [place] 00 daily. [facility] furosemide 2021-0 Yes [id number] 40mg Take 2 [facility] 20 mg 2-16 02 tablets by [facility] of tablet 00:00: mouth [place] 00 daily. [facility] furosemide 2021-0 Yes [id number] 40mg Take 2 [facility] 20 mg 2-16 02 tablets by [facility] of tablet 00:00: mouth [place] 00 daily. [facility] furosemide 2021-0 Yes [id number] 40mg Take 2 [facility] 20 mg 2-16 02 tablets by [facility] of tablet 00:00: mouth [place] 00 daily. [facility] furosemide 2021-0 Yes [id number] 40mg Take 2 [facility] 20 mg 2-16 02 tablets by [facility] of tablet 00:00: mouth [place] 00 daily. [facility] furosemide 2021-0 Yes [id number] 40mg Take 2 [facility] 20 mg 2-16 02 tablets by [facility] of tablet 00:00: mouth [place] 00 daily. [facility] furosemide 2021-0 Yes [id number] 40mg Take 2 [facility] 20 mg 2-16 02 tablets by [facility] of tablet 00:00: mouth [place] 00 daily. [facility] furosemide 2021-0 Yes [id number] 40mg Take 2 [facility] 20 mg 2-16 02 tablets by [facility] of tablet 00:00: mouth [place] 00 daily. [facility] furosemide 2021-0 Yes [id number] 40mg Take 2 [facility] 20 mg 2-16 02 tablets by it[facility] of tablet 00:00: mouth [place] 00 daily. [facility] furosemide 2021-0 Yes [id number] 40mg Take 2 [facility] 20 mg 2-16 02 tablets by it[facility] of tablet 00:00: mouth [place] 00 daily. [facility] furosemide 2021-0 Yes [id number] 40mg Take 2 [facility] 20 mg 2-16 02 tablets by [facility] of tablet 00:00: mouth [place] 00 daily. [facility] furosemide 2021-0 Yes [id number] 40mg Take 2 [facility] 20 mg 2-16 02 tablets by [facility] of tablet 00:00: mouth [place] 00 daily. [facility] furosemide 2021-0 2022- No [id number] 40mg Take 2 [facility] 20 mg 2-16 02-27 02 tablets by [facility] of tablet 00:00: 00:00 mouth [place] 00 :00 daily. [facility] furosemide 2021-0 2022- No [id number] 40mg Take 2 [facility] 20 mg 2-16 02-27 02 tablets by it[facility] of tablet 00:00: 00:00 mouth [place] 00 :00 daily. [facility] furosemide 2022- No [id number] 40mg Take 2 [facility] 20 mg 2-16 06-11 02 tablets by [facility] of tablet 00:00: 00:00 mouth [place] 00 :00 daily. [facility] furosemide 2022- No [id number] 40mg Take 2 [facility] 20 mg 2-16 - 02 tablets by it[facility] of tablet 00:00: 00:00 mouth [place] 00 :00 daily. [facility] furosemide 2022- No [id number] 40mg Take 2 [facility] 20 mg 2-16 06-11 02 tablets by [facility] of tablet 00:00: 00:00 mouth [place] 00 :00 daily. [facility] metoprolol 2020-04 Yes [id number] 25mg Take 1 U nivers tartrate 25 2-15 tablet by ity of mg tablet 00:00: [facility] [place] (two) Medical times Branch daily. metoprolol 2020-04 Yes [id number] 25mg Take 1 U nivers tartrate 25 2-15 tablet by ity of mg tablet 00:00: mouth [address] [place] [address] (two) Medical times Branch daily. metoprolol 2020-04 Yes [id number] 25mg Take 1 U nivers tartrate 25 2-15 tablet by ity of mg tablet 00:00: [facility] [place] (two) Medical times Branch daily. metoprolol 2020-04 Yes [id number] 25mg Take 1 U nivers tartrate 25 2-15 tablet by ity of mg tablet 00:00: mouth [address] [place] [address] (two) Medical times Branch daily. metoprolol 2020-04 Yes [id number] 25mg Take 1 U nivers tartrate 25 2-15 tablet by ity of mg tablet 00:00: mouth [address] [place] [address] (two) Medical times Branch daily. metoprolol 2020-04 Yes [id number] 25mg Take 1 U nivers tartrate 25 2-15 tablet by ity of mg tablet 00:00: [address] (two) Medical times Branch daily. metoprolol 2020-04 Yes [id number] 25mg Take 1 U nivers tartrate 25 2-15 tablet by ity of mg tablet 00:00: mouth [address] [place] [address] (two) Medical times Branch daily. metoprolol 2020-04 Yes [id number] 25mg Take 1 U nivers tartrate 25 2-15 tablet by ity of mg tablet 00:00: mouth (two) Medical times Branch daily. metoprolol 2020-04 Yes [id number] 25mg Take 1 U nivers tartrate 25 2-15 tablet by ity of mg tablet 00:00: mouth (two) Medical times Branch daily. metoprolol 2020-04 Yes [id number] 25mg Take 1 U nivers tartrate 25 2-15 tablet by ity of mg tablet 00:00: mouth (two) Medical times Branch daily. metoprolol 2020-04 Yes [id number] 25mg Take 1 U nivers tartrate 25 2-15 tablet by ity of mg tablet 00:00: mouth (two) Medical times Branch daily. metoprolol 2020-04 Yes [id number] 25mg Take 1 [facility] nivers tartrate 25 2-15 tablet by ity of mg tablet 00:00: mouth (two) Medical times Branch daily. metoprolol 2020-04 Yes [id number] 25mg Take 1 U nivers tartrate 25 2-15 tablet by ity of mg tablet 00:00: mouth (two) Medical times Branch daily. metoprolol 2020-04 Yes [id number] 25mg Take 1 U nivers tartrate 25 2-15 tablet by ity of mg tablet 00:00: mouth (two) Medical times Branch daily. metoprolol 2020-04 Yes [id number] 25mg Take 1 U nivers tartrate 25 2-15 tablet by ity of mg tablet 00:00: mouth (two) Medical times Branch daily. metoprolol 2020-04 Yes [id number] 25mg Take 1 U nivers tartrate 25 2-15 tablet by ity of mg tablet 00:00: mouth (two) Medical times Branch daily. metoprolol 2020-04 Yes [id number] 25mg Take 1 U nivers tartrate 25 2-15 tablet by ity of mg tablet 00:00: mouth (two) Medical times Branch daily. metoprolol 2020-04 Yes [id number] 25mg Take 1 [facility] nivers tartrate 25 2-15 tablet by ity of mg tablet 00:00: mouth (two) Medical times Branch daily. metoprolol 2020-04 Yes [id number] 25mg Take 1 [facility] nivers tartrate 25 2-15 tablet by ity of mg tablet 00:00: mouth (two) Medical times Branch daily. metoprolol 2020-04 Yes [id number] 25mg Take 1 U nivers tartrate 25 2-15 tablet by ity of mg tablet 00:00: mouth (two) Medical times Branch daily. metoprolol 2020-04 Yes [id number] 25mg Take 1 [facility] nivers tartrate 25 2-15 tablet by ity of mg tablet 00:00: mouth (two) Medical times Branch daily. metoprolol 2020-04 Yes [id number] 25mg Take 1 [facility] nivers tartrate 25 2-15 tablet by ity of mg tablet 00:00: mouth (two) Medical times Branch daily. metoprolol 2020-04 Yes [id number] 25mg Take 1 U nivers tartrate 25 2-15 tablet by ity of mg tablet 00:00: mouth (two) Medical times Branch daily. metoprolol 2020-04 Yes [id number] 25mg Take 1 [facility] nivers tartrate 25 2-15 tablet by ity of mg tablet 00:00: mouth (two) Medical times Branch daily. metoprolol 2020-04 Yes [id number] 25mg Take 1 U nivers tartrate 25 2-15 tablet by ity of mg tablet 00:00: mouth (two) Medical times Branch daily. metoprolol 2020-04 Yes [id number] 25mg Take 1 U nivers tartrate 25 2-15 tablet by ity of mg tablet 00:00: mouth (two) Medical times Branch daily. metoprolol 2020-04 Yes [id number] 25mg Take 1 U nivers tartrate 25 2-15 tablet by ity of mg tablet 00:00: mouth (two) Medical times Branch daily. metoprolol 2020-04 Yes [id number] 25mg Take 1 U nivers tartrate 25 2-15 tablet by ity of mg tablet 00:00: mouth (two) Medical times Branch daily. metoprolol 2020-04 Yes [id number] 25mg Take 1 U nivers tartrate 25 2-15 tablet by ity of mg tablet 00:00: mouth (two) Medical times Branch daily. metoprolol 2020-04- No [id number] 25mg Take 1 [facility] tartrate 25 2-15 12-19 tablet by it y of mg tablet 00:00: 00:[place] mouth [place] ([place] Medical times Branch daily. polyethylen 2020-04 Yes [id number] 17g Take 1 [facility] e glycol 0-29 Packet by ity of 3350 17 00:00: mouth [place] gram powder 00 daily. Medica l Branch polyethylen 2020-04 Yes [id number] 17g Take 1 [facility] e glycol 0-29 Packet by ity of 3350 17 00:00: mouth [place] gram powder 00 daily. Medica l Branch polyethylen 2020-04 Yes [id number] 17g Take 1 [facility] e glycol 0-29 Packet by ity of 3350 17 00:00: mouth [place] gram powder 00 daily. Medica l Branch polyethylen 2020-04 Yes [id number] 17g Take 1 [facility] e glycol 0-29 Packet by ity of 3350 17 00:00: mouth [place] gram powder 00 daily. Medica l Branch polyethylen 2020-04 Yes [id number] 17g Take 1 [facility] e glycol 0-29 Packet by ity of 3350 17 00:00: mouth [place] gram powder 00 daily. Medica l Branch polyethylen 2020-04 Yes [id number] 17g Take 1 [facility] e glycol 0-29 Packet by ity of 3350 17 00:00: mouth [place] gram powder 00 daily. Medica l Branch polyethylen 2020-04 Yes [id number] 17g Take 1 [facility] e glycol 0-29 Packet by ity of 3350 17 00:00: mouth [place] gram powder 00 daily. Medica l Branch polyethylen 2020-04 Yes [id number] 17g Take 1 [facility] e glycol 0-29 Packet by ity of 3350 17 00:00: mouth [place] gram powder 00 daily. Medica l Branch polyethylen 2020-04 Yes [id number] 17g Take 1 [facility] e glycol 0-29 Packet by ity of 3350 17 00:00: mouth [place] gram powder 00 daily. Medica l Branch polyethylen 2020-04 Yes [id number] 17g Take 1 [facility] e glycol 0-29 Packet by ity of 3350 17 00:00: mouth [place] gram powder 00 daily. Med[facility] l [facility] polyethylen 2020-04 Yes [id number] 17g Take 1 [facility] e glycol 0-29 Packet by ity of 3350 17 00:00: mouth [place] gram powder 00 daily. Medica l [facility] polyethylen 2020-04 Yes [id number] 17g Take 1 [facility] e glycol 0-29 Packet by ity of 3350 17 00:00: mouth [place] gram powder 00 daily. Medica l Branch polyethylen 2020-04 Yes [id number] 17g Take 1 [facility] e glycol 0-29 Packet by ity of 3350 17 00:00: mouth [place] gram powder 00 daily. Medica l Branch polyethylen 2020-04 Yes [id number] 17g Take 1 [facility] e glycol 0-29 Packet by ity of 3350 17 00:00: mouth [place] gram powder 00 daily. Med[facility] l [facility] polyethylen 2020-04 Yes [id number] 17g Take 1 [facility] e glycol 0-29 Packet by ity of 3350 17 00:00: mouth [place] gram powder 00 daily. Medica l [facility] polyethylen 2020-04 Yes [id number] 17g Take 1 [facility] e glycol 0-29 Packet by ity of 3350 17 00:00: mouth [place] gram powder 00 daily. Med[facility] l [facility] polyethylen 2020-04 Yes [id number] 17g Take 1 [facility] e glycol 0-29 Packet by ity of 3350 17 00:00: mouth [place] gram powder 00 daily. Medica l [facility] polyethylen 2020-04 Yes [id number] 17g Take 1 [facility] e glycol 0-29 Packet by ity of 3350 17 00:00: mouth [place] gram powder 00 daily. [facility] polyethylen 2020-04 Yes [id number] 17g Take 1 Univers e glycol 0-29 Packet by ity of 3350 17 00:00: mouth [place] gram powder 00 daily. [facility] polyethylen 2020-04 Yes [id number] 17g Take 1 Univers e glycol 0-29 Packet by ity of 3350 17 00:00: mouth [place] gram powder 00 daily. [facility] polyethylen 2020-04 Yes [id number] 17g Take 1 Univers e glycol 0-29 Packet by ity of 3350 17 00:00: mouth [place] gram powder 00 daily. [facility] polyethylen 2020-04 Yes [id number] 17g Take 1 Univers e glycol 0-29 Packet by ity of 3350 17 00:00: mouth [place] gram powder 00 daily. Medica l [facility] polyethylen 2020-04 Yes [id number] 17g Take 1 Univers e glycol 0-29 Packet by ity of 3350 17 00:00: mouth [place] gram powder 00 daily. Medica [facility] polyethylen 2020-04 Yes [id number] 17g Take 1 Univers e glycol 0-29 Packet by ity of 3350 17 00:00: mouth [place] gram powder 00 daily. [facility] polyethylen 2020-04 Yes [id number] 17g Take 1 Univers e glycol 0-29 Packet by ity of 3350 17 00:00: mouth [place] gram powder 00 daily. [facility] polyethylen 2020-04 Yes [id number] 17g Take 1 Univers e glycol 0-29 Packet by ity of 3350 17 00:00: mouth [place] gram powder 00 daily. [facility] polyethylen 2020-04 Yes [id number] 17g Take 1 Univers e glycol 0-29 Packet by ity of 3350 17 00:00: mouth [place] gram powder 00 daily. [facility] polyethylen 2020-04 Yes [id number] 17g Take 1 Univers e glycol 0-29 Packet by ity of 3350 17 00:00: mouth [place] gram powder 00 daily. [facility] polyethylen 2020-04 Yes [id number] 17g Take 1 Univers e glycol 0-29 Packet by ity of 3350 17 00:00: mouth [place] gram powder 00 daily. [facility] polyethylen 2020-04 Yes [id number] 17g Take 1 Univers e glycol 0-29 Packet by ity of 3350 17 00:00: mouth [place] gram powder 00 daily. [facility] polyethylen 2020-04 Yes [id number] 17g Take 1 Univers e glycol 0-29 Packet by ity of 3350 17 00:00: mouth [place] gram powder 00 daily. [facility] polyethylen 2020-04 Yes [id number] 17g Take 1 Univers e glycol 0-29 Packet by ity of 3350 17 00:00: mouth [place] gram powder 00 daily. [facility] polyethylen 2020-04 Yes [id number] 17g Take 1 Univers e glycol 0-29 Packet by ity of 3350 17 00:00: mouth [place] gram powder 00 daily. [facility] polyethylen 2020-04 Yes [id number] 17g Take 1 Univers e glycol 0-29 Packet by ity of 3350 17 00:00: mouth [place] gram powder 00 daily. [facility] polyethylen 2020-04 Yes [id number] 17g Take 1 Univers e glycol 0-29 Packet by ity of 3350 17 00:00: mouth [place] gram powder 00 daily. [facility] polyethylen 2020-04 Yes [id number] 17g Take 1 Univers e glycol 0-29 Packet by ity of 3350 17 00:00: mouth [place] gram powder 00 daily. [facility] polyethylen 2020-04 Yes [id number] 17g Take 1 Univers e glycol 0-29 Packet by ity of 3350 17 00:00: mouth [place] gram powder 00 daily. [facility] polyethylen 2020-04 Yes [id number] 17g Take 1 Univers e glycol 0-29 Packet by ity of 3350 17 00:00: mouth [place] gram powder 00 daily. [facility] polyethylen 2020-04 Yes [id number] 17g Take 1 Univers e glycol 0-29 Packet by ity of 3350 17 00:00: mouth [place] gram powder 00 daily. [facility] polyethylen 2020-04 Yes [id number] 17g Take 1 Univers e glycol 0-29 Packet by ity of 3350 17 00:00: mouth [place] gram powder 00 daily. [facility] polyethylen 2020-04 Yes [id number] 17g Take 1 Univers e glycol 0-29 Packet by ity of 3350 17 00:00: mouth [place] gram powder 00 daily. [facility] polyethylen 2020-04- No [id number] 17g Take 1 Univers e glycol 0-29 02-22 Packet by ity o f 3350 17 00:00: 00:00 mouth [place] gram powder 00 :00 daily. [facility]ica [facility] polyethylen 2020-04- No [id number] 17g Take 1 Univers e glycol 0-29 02-22 Packet by ity o f 3350 17 00:00: 00:00 mouth [place] gram powder 00 :00 daily. [facility] polyethylen 2020-043- No [id number] 17g Take 1 Univers e glycol 0-29 02-22 Packet by ity o f 3350 17 00:00: 00:00 mouth [place] gram powder 00 :00 daily. [facility] docusate 2020-04 Yes [id number] 100mg Take 1 U nivers 100 mg 0-28 capsule by ity of capsule 00:00: mouth (two) Medical times Branch daily. docusate 2020-04 Yes [id number] 100mg Take 1 U nivers 100 mg 0-28 capsule by ity of capsule 00:00: mouth (two) Medical times Branch daily. docusate 2020-04 Yes [id number] 100mg Take 1 U nivers 100 mg 0-28 capsule by ity of capsule 00:00: mouth (two) Medical times Branch daily. docusate 2020-04 Yes [id number] 100mg Take 1 U nivers 100 mg 0-28 capsule by ity of capsule 00:00: mouth (two) Medical times Branch daily. docusate 2020-04 Yes [id number] 100mg Take 1 U nivers 100 mg 0-28 capsule by ity of capsule 00:00: mouth (two) Medical times Branch daily. docusate 2020-04 Yes [id number] 100mg Take 1 U nivers 100 mg 0-28 capsule by ity of capsule 00:00: mouth (two) Medical times Branch daily. docusate 2020-04 Yes [id number] 100mg Take 1 U nivers 100 mg 0-28 capsule by ity of capsule 00:00: mouth (two) Medical times Branch daily. docusate 2020-04 Yes [id number] 100mg Take 1 U nivers 100 mg 0-28 capsule by ity of capsule 00:00: mouth 2 (two) Medical times Branch daily. docusate 2020-04 Yes [id number] 100mg Take 1 U nivers 100 mg 0-28 capsule by ity of capsule 00:00: mouth (two) Medical times Branch daily. docusate 2020-04 Yes [id number] 100mg Take 1 U nivers 100 mg 0-28 capsule by ity of capsule 00:00: mouth (two) Medical times Branch daily. docusate 2020-04 Yes [id number] 100mg Take 1 U nivers 100 mg 0-28 capsule by ity of capsule 00:00: mouth (two) Medical times Branch daily. docusate 2020-04 Yes [id number] 100mg Take 1 U nivers 100 mg 0-28 capsule by ity of capsule 00:00: mouth (two) Medical times Branch daily. docusate 2020-04 Yes [id number] 100mg Take 1 U nivers 100 mg 0-28 capsule by ity of capsule 00:00: mouth (two) Medical times Branch daily. docusate 2020-04 Yes [id number] 100mg Take 1 U nivers 100 mg 0-28 capsule by ity of capsule 00:00: mouth (two) Medical times Branch daily. docusate 2020-04 Yes [id number] 100mg Take 1 U nivers 100 mg 0-28 capsule by ity of capsule 00:00: mouth (two) Medical times Branch daily. docusate 2020-04 Yes [id number] 100mg Take 1 U nivers 100 mg 0-28 capsule by ity of capsule 00:00: mouth (two) Medical times Branch daily. docusate 2020-04 Yes [id number] 100mg Take 1 U nivers 100 mg 0-28 capsule by ity of capsule 00:00: mouth (two) Medical times Branch daily. docusate 2020-04 Yes [id number] 100mg Take 1 U nivers 100 mg 0-28 capsule by ity of capsule 00:00: mouth (two) Medical times Branch daily. docusate 2020-04 Yes [id number] 100mg Take 1 U nivers 100 mg 0-28 capsule by ity of capsule 00:00: mouth (two) Medical times Branch daily. docusate 2020-04 Yes [id number] 100mg Take 1 U nivers 100 mg 0-28 capsule by ity of capsule 00:00: mouth (two) Medical times Branch daily. docusate 2020-04 Yes [id number] 100mg Take 1 U nivers 100 mg 0-28 capsule by ity of capsule 00:00: mouth (two) Medical times Branch daily. docusate 2020-04 Yes [id number] 100mg Take 1 U nivers 100 mg 0-28 capsule by ity of capsule 00:00: mouth (two) Medical times Branch daily. docusate 2020-04 Yes [id number] 100mg Take 1 U nivers 100 mg 0-28 capsule by ity of capsule 00:00: mouth (two) Medical times Branch daily. docusate 2020-04 Yes [id number] 100mg Take 1 U nivers 100 mg 0-28 capsule by ity of capsule 00:00: mouth (two) Medical times Branch daily. docusate 2020-04 Yes [id number] 100mg Take 1 U nivers 100 mg 0-28 capsule by ity of capsule 00:00: mouth (two) Medical times Branch daily. docusate 2020-04 Yes [id number] 100mg Take 1 U nivers 100 mg 0-28 capsule by ity of capsule 00:00: mouth (two) Medical times Branch daily. docusate 2020-04 Yes [id number] 100mg Take 1 U nivers 100 mg 0-28 capsule by ity of capsule 00:00: mouth (two) Medical times Branch daily. docusate 2020-04 Yes [id number] 100mg Take 1 U nivers 100 mg 0-28 capsule by ity of capsule 00:00: mouth (two) Medical times Branch daily. docusate 2020-04 Yes [id number] 100mg Take 1 U nivers 100 mg 0-28 capsule by ity of capsule 00:00: mouth (two) Medical times Branch daily. docusate 2020-04 Yes [id number] 100mg Take 1 U nivers 100 mg 0-28 capsule by ity of capsule 00:00: mouth (two) Medical times Branch daily. docusate 2020-04 Yes [id number] 100mg Take 1 U nivers 100 mg 0-28 capsule by ity of capsule 00:00: mouth (two) Medical times Branch daily. docusate 2020-04 Yes [id number] 100mg Take 1 U nivers 100 mg 0-28 capsule by ity of capsule 00:00: mouth (two) Medical times Branch daily. docusate 2020-04 Yes [id number] 100mg Take 1 U nivers 100 mg 0-28 capsule by ity of capsule 00:00: mouth (two) Medical times Branch daily. docusate 2020-04 Yes [id number] 100mg Take 1 U nivers 100 mg 0-28 capsule by ity of capsule 00:00: mouth 2 (two) Medical times Branch daily. docusate 2020-04 Yes [id number] 100mg Take 1 U nivers 100 mg 0-28 capsule by ity of capsule 00:00: mouth [place] (two) Medical times Branch daily. docusate 2020-04 Yes [id number] 100mg Take 1 U nivers 100 mg 0-28 capsule by ity of capsule 00:00: mouth [place] (two) Medical times Branch daily. docusate 2020-04 Yes [id number] 100mg Take 1 U nivers 100 mg 0-28 capsule by ity of capsule 00:00: mouth [place] (two) Medical times Branch daily. docusate 2020-04 Yes [id number] 100mg Take 1 U nivers 100 mg 0-28 capsule by ity of capsule 00:00: mouth [place] (two) Medical times Branch daily. docusate 2020-04 Yes [id number] 100mg Take 1 U nivers 100 mg 0-28 capsule by ity of capsule 00:00: mouth [place] (two) Medical times Branch daily. docusate 2020-04 Yes [id number] 100mg Take 1 U nivers 100 mg 0-28 capsule by ity of capsule 00:00: mouth [place] (two) Medical times Branch daily. docusate 2020-04 Yes [id number] 100mg Take 1 U nivers 100 mg 0-28 capsule by ity of capsule 00:00: mouth 2 [place] (two) Medical times Branch daily. docusate 2020-043- No [id number] 100mg Take 1 Univers 100 mg 0-28 02- capsule by ity of capsule 00:00: 00:00 mouth 2 [place] 00 :00 (two) Medical times Branch daily. docusate 2020-04- No [id number] 100mg Take 1 Univers 100 mg 0-28 - capsule by ity of capsule 00:00: 00:00 mouth 2 [place] 00 :00 (two) Medical times Branch daily. docusate 2020-04- No [id number] 100mg Take 1 Univers 100 mg 0-12 06- capsule by ity of capsule 00:00: 00:00 mouth 2 [place] 00 :00 (two) Medical times Branch daily. [...] EC 4-14 ity of tablet 00:00: [place] [facility] pantoprazol 2017-0 Yes Univer s e 40 mg EC 4-14 ity of tablet 00:00: [place] [facility] pantoprazol 2017-0 Yes Univer s e 40 mg EC 4-14 ity of tablet 00:00: [place] [facility] pantoprazol 2017-0 Yes Univer s e 40 mg EC 4-14 ity of tablet 00:00: [place] [facility] Branch pantoprazol 2017-0 Yes Univer s e 40 mg EC 4-14 ity of tablet 00:00: [place] [facility] Branch pantoprazol 2017-0 Yes Univer s e 40 mg EC 4-14 ity of tablet 00:00: [place] [facility] Branch pantoprazol 2017-0 Yes Univer s e 40 mg EC 4-14 ity of tablet 00:00: [place] [facility] Branch pantoprazol 2017-0 Yes Univer s e 40 mg EC 4-14 ity of tablet 00:00: [address] Branch pantoprazol 2017-0 Yes Univer s e 40 mg EC 4-14 ity of tablet 00:00: [place] [facility] Branch pantoprazol 2017-0 Yes Univer s e 40 mg EC 4-14 ity of tablet 00:00: [place] [facility] Branch pantoprazol 2017-0 Yes Univer s e 40 mg EC 4-14 ity of tablet 00:00: [place] [facility] Branch pantoprazol 2017-0 Yes Univer s e 40 mg EC 4-14 ity of tablet 00:00: [place] [facility] pantoprazol 2017-0 Yes Univer s e 40 mg EC 4-14 ity of tablet 00:00: [place] [facility] Branch pantoprazol 2017-0 Yes Univer s e 40 mg EC 4-14 ity of tablet 00:00: [place] [facility] Branch pantoprazol 2017-0 Yes Univer s e 40 mg EC 4-14 ity of tablet 00:00: [place] [facility] pantoprazol 2017-0 Yes Univer s e 40 mg EC 4-14 ity of tablet 00:00: [place] [facility] pantoprazol 2017-0 Yes Univer s e 40 mg EC 4-14 ity of tablet 00:00: [place] [facility] pantoprazol 2017-0 Yes Univer s e 40 mg EC 4-14 ity of tablet 00:00: [place] [facility] Branch pantoprazol 2017-0 Yes Univer s e 40 mg EC 4-14 ity of tablet 00:00: [place] [facility] Branch pantoprazol 2017-0 Yes Univer s e 40 mg EC 4-14 ity of tablet 00:00: [place] [facility] Branch pantoprazol 2017-0 Yes Univer s e 40 mg EC 4-14 ity of tablet 00:00: [place] [facility] pantoprazol 2017-0 Yes Univer s e 40 mg EC 4-14 ity of tablet 00:00: [place] [facility] pantoprazol 2017-0 Yes Univer s e 40 mg EC 4-14 ity of tablet 00:00: [place] [facility] pantoprazol 2017-0 Yes Univer s e 40 mg EC 4-14 ity of tablet 00:00: [place] [facility] pantoprazol 2017-0 Yes Univer s e 40 mg EC 4-14 ity of tablet 00:00: [address] pantoprazol 2017-0 Yes Univer s e 40 mg EC 4-14 ity of tablet 00:00: [address] pantoprazol 2017-0 Yes Univer s e 40 mg EC 4-14 ity of tablet 00:00: [place] [facility] Branch pantoprazol 2017-0 Yes Univer s e 40 mg EC 4-14 ity of tablet 00:00: [place] [facility] Branch pantoprazol 2017-0 Yes Univer s e 40 mg EC 4-14 ity of tablet 00:00: [place] [facility] Branch pantoprazol 2017-0 Yes Univer s e 40 mg EC 4-14 ity of tablet 00:00: [place] [facility] pantoprazol 2017-0 Yes Univer s e 40 mg EC 4-14 ity of tablet 00:00: [place] [facility] Branch pantoprazol 2017-0 Yes Univer s e 40 mg EC 4-14 ity of tablet 00:00: [address] Branch pantoprazol 2017-0 Yes Univer s e 40 mg EC 4-14 ity of tablet 00:00: [place] [facility] Branch pantoprazol 2017-0 Yes Univer s e 40 mg EC 4-14 ity of tablet 00:00: [place] 00 Medical [facility] pantoprazol 2017-0 Yes Univer s e 40 mg EC 4-14 ity of tablet 00:00: [place] [facility] pantoprazol 2017-0 Yes Univer s e 40 mg EC 4-14 ity of tablet 00:00: [place] [facility] pantoprazol 2017-0 Yes Univer s e 40 mg EC 4-14 ity of tablet 00:00: [place] [facility] pantoprazol 2017-0 Yes Univer s e 40 mg EC 4-14 ity of tablet 00:00: [place] [facility] pantoprazol 2017-0 Yes Univer s e 40 mg EC 4-14 ity of tablet 00:00: [address] Branch pantoprazol 2017-0 Yes Univer s e 40 mg EC 4-14 ity of tablet 00:00: [place] [facility] pantoprazol 2017-0 Yes Univer s e 40 mg EC 4-14 ity of tablet 00:00: [place] [address] Medical Branch pantoprazol 2017-0 Yes Univer s e 40 mg EC 4-14 ity of tablet 00:00: [address] Branch pantoprazol 2017-0 Yes Univer s e 40 mg EC 4-14 ity of tablet 00:00: [place] [address] Medical Branch pantoprazol 2017-0 Yes Univer s e 40 mg EC 4-14 ity of tablet 00:00: [address] Branch pantoprazol 2017-0 Yes Univer s e 40 mg EC 4-14 ity of tablet 00:00: [place] [facility] pantoprazol 2017-0 Yes Univer s e 40 mg EC 4-14 ity of tablet 00:00: [place] [facility] pantoprazol 2017-0 Yes Univer s e 40 mg EC 4-14 ity of tablet 00:00: [place] [address] Medical Branch pantoprazol 2017-0 Yes Univer s e 40 mg EC 4-14 ity of tablet 00:00: [place] [facility] pantoprazol 2017-0 Yes Univer s e 40 mg EC 4-14 ity of tablet 00:00: [place] [facility] pantoprazol 2017-0 Yes Univer s e 40 mg EC 4-14 ity of tablet 00:00: [place] [facility] pantoprazol 2017-0 Yes Univer s e 40 mg EC 4-14 ity of tablet 00:00: [place] 00 [facility] pantoprazol 2017-0 Yes Univer s e 40 mg EC 4-14 ity of tablet 00:00: [place] [facility] pantoprazol 2017-0 Yes Univer s e 40 mg EC 4-14 ity of tablet 00:00: [place] [facility] pantoprazol 2017-0 Yes Univer s e 40 mg EC 4-14 ity of tablet 00:00: [place] [facility] Branch pantoprazol 2017-0 Yes Univer s e 40 mg EC 4-14 ity of tablet 00:00: [place] [facility] pantoprazol 2017-0 Yes Univer s e 40 mg EC 4-14 ity of tablet 00:00: [place] [facility] pantoprazol 2017-0 Yes Univer s e 40 mg EC 4-14 ity of tablet 00:00: [place] [facility] pantoprazol 2017-0 Yes Univer s e 40 mg EC 4-14 ity of tablet 00:00: [place] [facility] pantoprazol 2017-0 Yes Univer s e 40 mg EC 4-14 ity of tablet 00:00: [place] [facility] Branch pantoprazol 2017-0 Yes Univer s e 40 mg EC 4-14 ity of tablet 00:00: [place] [facility] pantoprazol 2017-0 Yes Univer s e 40 mg EC 4-14 ity of tablet 00:00: [place] [facility] pantoprazol 2017-0 Yes Univer s e 40 mg EC 4-14 ity of tablet 00:00: [place] [facility] Branch pantoprazol 2017-0 Yes Univer s e 40 mg EC 4-14 ity of tablet 00:00: [place] [facility] Branch pantoprazol 2017-0 Yes Univer s e 40 mg EC 4-14 ity of tablet 00:00: [place] [facility] pantoprazol 2017-0 Yes Univer s e 40 mg EC 4-14 ity of tablet 00:00: [place] [facility] Branch pantoprazol 2017-0 Yes Univer s e 40 mg EC 4-14 ity of tablet 00:00: [place] [facility] pantoprazol 2017-0 Yes Univer s e 40 mg EC 4-14 ity of tablet 00:00: [place] [facility] pantoprazol 2017-0 Yes Univer s [...] mg EC 4-14 ity of tablet 00:00: [place] [address] Medical Branch aspirin 81 2015- Yes 81mg Take 1 Unive rs mg chewable 0-26 tablet by ity of tablet 00:00: mouth [place] 00 daily. Medical Branch aspirin 81 2015-04 [...] Ordered Filled Immunization Date Status Comments [facility] e Immunization Name Name Influenza Virus [...] 2021-03-06 Completed Universit y of Vaccine,quad 00:00:00 [place]lin Mckeona l [facility] 65+ Vital Signs Vital Name Observation Time Observation Value Comments Source Systolic blood 2022-08-28 18:09:00 134 mm[Hg] Univer sity of pressure [facility] Diastolic blood 2022-08-28 18:09:00 72 mm[Hg] Unive rsity of pressure [facility] Heart rate 2022-08-28 18:09:00 71 /min Universi ty of [facility] Respiratory rate 2022-08-28 18:09:00 19 /min Univ ersity of [facility] Body height 2022-08-28 18:09:00 160 cm Universi ty of [place] [facility] [place] Body weight 2022-08-28 18:09:00 46.63 kg Universi ty of [place] [facility] [place] BMI 2022-08-28 18:09:00 18.21 kg/m2 Universi ty of [facility] Oxygen saturation in 2022-08-28 18:09:00 98 /min University Arterial blood by [facility] Pulse oximetry Branch Systolic blood 2022-06-25 15:38:00 137 mm[Hg] Univer sity of pressure [facility] Diastolic blood 2022-06-25 15:38:00 46 mm[Hg] Unive rsity of pressure [facility] Heart rate 2022-06-25 15:38:00 56 /min Universi ty of [place] [facility] [place] Body temperature 2022-06-25 15:38:00 36.11 Allie Univ ersity of [facility] Respiratory rate 2022-06-25 15:38:00 17 /min Univ ersity of [facility] Body height 2022-06-25 15:38:00 160 cm Universi ty of [place] [facility] [place] Body weight 2022-06-25 15:38:00 46.494 kg Universi ty of [place] [facility] [place] BMI 2022-06-25 15:38:00 18.16 kg/m2 [facility]i ty of [place] [facility] [place] Systolic blood 2022-06-12 13:39:00 124 mm[Hg] Univer sity of pressure [facility] Diastolic blood 2022-06-12 13:39:00 56 mm[Hg] Unive rsity of pressure [facility] Heart rate 2022-06-12 13:39:00 74 /min Universi ty of [place] [facility] Body temperature 2022-06-12 13:39:00 36.67 Allie Univ ersity of [place] [facility] Respiratory rate 2022-06-12 13:39:00 18 /min Univ ersity of [place] [facility] Oxygen saturation in 2022-06-12 13:39:00 100 /min University of Arterial blood by [place] [facility] Pulse oximetry Branch Body weight 2022-06-12 10:12:00 46.494 kg Universi ty of [place] [facility] BMI 2022-06-12 10:12:00 18.16 kg/m2 [facility] ty of [place] [facility] Body height 2022-06-06 23:33:00 160 cm [facility]i ty of [place] [facility] HEIGHT 2022-05-18 09:00:00 160 cm WEIGHT 2022-05-18 09:00:00 47.9 kg HEIGHT 2022-05-18 09:00:00 160 cm WEIGHT 2022-05-18 09:00:00 47.9 kg HEIGHT 2022-05-18 09:00:00 160 cm WEIGHT 2022-05-18 09:00:00 47.9 kg Systolic blood 2022-05-10 17:56:00 153 mm[Hg] Univer sity of pressure [place] [facility] Diastolic blood 2022-05-10 17:56:00 47 mm[Hg] Unive rsity of pressure [place] [facility] [place] Heart rate 2022-05-10 17:54:00 68 /min [facility]i ty of [place] [facility] Respiratory rate 2022-05-10 17:54:00 20 /min Univ ersity of [place] [facility] Body height 2022-05-10 17:54:00 160 cm [facility]i ty of [place] [facility] Body weight 2022-05-10 17:54:00 46.085 kg [facility]i ty of [place] [facility] BMI 2022-05-10 17:54:00 18.00 kg/m2 Universi ty of [place] [facility] Oxygen saturation in 2022-05-10 17:54:00 99 /min University of Arterial blood by [place] [facility] Pulse oximetry Branch Systolic blood 2022-02-28 19:10:00 161 mm[Hg] Univer sity of pressure [place] [facility] Diastolic blood 2022-02-28 19:10:00 59 mm[Hg] Unive rsity of pressure [place] [facility] Heart rate 2022-02-28 19:10:00 50 /min Universi ty of [place] [facility] Oxygen saturation in 2022-02-28 19:10:00 100 /min University of Arterial blood by [place] [facility] Pulse oximetry Branch Body temperature 2022-02-28 19:08:00 36.11 Allie Univ ersity of [place] [facility] Respiratory rate 2022-02-28 19:08:00 16 /min Univ ersity of [place] [facility] Body weight 2022-02-28 19:08:00 49.125 kg Universi ty of [place] [facility] BMI 2022-02-28 19:08:00 19.18 kg/m2 [facility] [place] [facility] Systolic blood 2022-06-25 15:38:00 137 mm[Hg] Univer sity of pressure [place] [facility] Diastolic blood 2022-06-25 15:38:00 46 mm[Hg] Unive rsity of pressure [place] [facility] Heart rate 2022-06-25 15:38:00 56 /min Universi ty of [place] [facility] Body temperature 2022-06-25 15:38:00 36.11 Allie Univ ersity of [place] [facility] Respiratory rate 2022-06-25 15:38:00 17 /min Univ ersity of [place] [facility] Body height 2022-06-25 15:38:00 160 cm Universi ty of [place] [facility] Body weight 2022-06-25 15:38:00 46.494 kg [facility]i ty [facility] [place] [facility] BMI 2022-06-25 15:38:00 18.16 kg/m2 [facility] [place] [facility] Systolic blood 2022-06-12 13:39:00 124 mm[Hg] Univer sity of pressure [place] [facility] Diastolic blood 2022-06-12 13:39:00 56 mm[Hg] Unive rsity of pressure [place] [facility] Heart rate 2022-06-12 13:39:00 74 /min [facility]i ty of [place] [facility] Body temperature 2022-06-12 13:39:00 36.67 Allie Univ ersity of [place] [facility] Respiratory rate 2022-06-12 13:39:00 18 /min Univ ersity of [place] [facility] Oxygen saturation in 2022-06-12 13:39:00 100 /min University of Arterial blood by [facility] Pulse oximetry Branch Body weight 2022-06-12 10:12:[address] [facility] BMI 2022-06-12 10:12:00 18.16 kg/m2 [facility] Body height 2022-06-06 23:33:[address] [facility] Systolic blood 2022-05-27 16:06:00 109 mm[Hg] [facility] Diastolic blood 2022-05-27 16:06:00 53 mm[Hg] [facility] Heart rate 2022-05-27 16:03:00 69 /min [facility] Body temperature 2022-05-27 16:03:00 37.11 Allie [facility] Respiratory rate 2022-05-27 16:03:00 17 /min [facility] Oxygen saturation in 2022-05-27 16:03:00 96 /min [facility] Arterial blood by Medical Ce nter Pulse oximetry Systolic blood 2022-05-24 07:00:00 117 mm[Hg] [facility] Diastolic blood 2022-05-24 07:00:00 73 mm[Hg] [facility] Heart rate 2022-05-24 07:00:00 81 /min [facility] Body temperature 2022-05-24 07:00:00 36.67 Allie [facility] Respiratory rate 2022-05-24 07:00:00 15 /min [facility] [facility] Oxygen saturation in 2022-05-24 07:00:00 96 /min [facility] Arterial blood by Medical Ce nter Pulse oximetry Systolic blood 2022-05-22 08:00:00 126 mm[Hg] [facility] Diastolic blood 2022-05-22 08:00:00 62 mm[Hg] [facility] Heart rate 2022-05-22 08:00:00 63 /min [facility] Respiratory rate 2022-05-22 08:00:00 24 /min [facility] Oxygen saturation in 2022-05-22 08:00:00 98 /min [facility] Arterial blood by Medical Ce nter Pulse oximetry Body temperature 2022-05-21 16:00:00 36.67 Allie [facility] Systolic blood 2022-05-21 08:23:00 127 mm[Hg] [facility] Diastolic blood 2022-05-21 08:23:00 65 mm[Hg] [facility] Heart rate 2022-05-21 07:30:00 76 /min [facility] Respiratory rate 2022-05-21 07:30:00 17 /min [facility] Oxygen saturation in 2022-05-21 07:30:00 98 /min [facility] Arterial blood by Medical Ce nter Pulse oximetry Body temperature 2022-05-21 00:00:00 36.17 Allie [facility] Body height 2022-05-18 09:00:00 160 cm [facility] Body weight 2022-05-18 09:00:00 47.9 kg [facility] BMI 2022-05-18 09:00:00 18.71 kg/m2 [facility] Procedures Procedure Date / Time Performing Clinician Source Performed EXTERNAL PROVIDER - ADC 2022-11-09 05:01:00 Doctor Unassigned, N o [facility] CARDIOLOGY [facility] MEDICAL RELEASE/CLEARANCE 2022-10-04 05:01:00 Doctor Unassigned, No [facility] FORMS [facility] [place] MEDICAL RELEASE/CLEARANCE 2022-08-23 05:01:00 Doctor Unassigned, No [facility] XR HIPS 2 VW RIGHT 2022-08-01 15:29:05 Joseph Cortes [facility] CONSENT/REFUSAL FOR 2022-08-01 15:11:45 Doctor Unassigned, [facility] DIAGNOSIS AND TREATMENT [facility] [place] ASSIGNMENT OF BENEFITS 2022-08-01 15:11:28 Doctor Unassigned, No [facility] PROTHROMBIN TIME / INR 2022-07-10 14:51:00 [facility] CONSENT/REFUSAL FOR 2022-07-10 14:37:14 Doctor Unassigned, [facility] CONSENT/REFUSAL FOR 2022-07-10 14:37:14 Doctor Unassigned, No Un [facility] DIAGNOSIS AND TREATMENT [facility] [place] ASSIGNMENT OF BENEFITS 2022-07-10 14:36:56 Doctor Unassigned, No [facility] Name [facility] ASSIGNMENT OF BENEFITS 2022-07-10 14:36:56 Doctor Unassigned, No [facility] PROTHROMBIN TIME / INR 2022-06-25 15:22:00 [facility] PROTHROMBIN TIME / INR 2022-06-12 08:34:00 [facility] 2022-06-12 08:34:00 [facility] BASIC METABOLIC PANEL 2022-06-12 08:34:00 Omkar eda [facility] (NA, K, CL, CO2, GLUCOSE, Medica l Branch BUN, CREATININE, CA) CBC WITH DIFF 2022-06-12 08:34:00 [facility]mkar [facility] ACTIVATED PARTIAL 2022-06-12 08:34:00 Demond [facility] MAGNESIUM 2022-06-12 08:34:00 [facility]mkar [facility] BASIC METABOLIC PANEL 2022-06-12 08:34:00 Omkar eda [facility] (NA, K, CL, CO2, GLUCOSE, Medica l Branch BUN, CREATININE, CA) CBC WITH DIFF 2022-06-12 08:34:00 Omkar eda [facility] PROTHROMBIN TIME / INR 2022-06-12 08:34:00 Mariia Cardona Un [facility] ACTIVATED PARTIAL 2022-06-12 08:34:00 Demond [facility] ACTIVATED PARTIAL 2022-06-12 02:29:00 Demond [facility] ACTIVATED PARTIAL 2022-06-12 02:29:00 Demond [facility] EXTRA TUBE LT. GREEN 2022-06-12 00:00:[address] [facility] EXTRA TUBE LT. GREEN 2022-06-12 00:00:[address] [facility] BLOOD CULTURE SCREEN 2022-06-11 19:48:00 Leslie Espitia U [facility] BLOOD CULTURE SCREEN 2022-06-11 19:48:00 Leslie Espitia U [facility] BLOOD CULTURE SCREEN 2022-06-11 19:42:00 Leslie Espitia U [facility] BLOOD CULTURE SCREEN 2022-06-11 19:42:00 Leslie Espitia U [facility] TRANSESOPHAGEAL ECHO 2022-06-11 15:58:00 Juan Francisco [facility] ([facility]) COMPLETE W/ DOPPLER [facility] AND COLOR TRANSESOPHAGEAL ECHO 2022-06-11 15:58:00 Juan Francisco [facility] ([facility]) COMPLETE W/ DOPPLER [facility] AND COLOR ACTIVATED PARTIAL 2022-06-11 14:52:00 Demond [facility] ACTIVATED PARTIAL 2022-06-11 14:52:00 Demond [facility] PROTHROMBIN TIME / INR 2022-06-11 08:57:00 Mari[facility] BASIC METABOLIC PANEL 2022-06-11 08:57:00 Les Ortega [facility] (NA, K, CL, CO2, GLUCOSE, Medica l Branch BUN, CREATININE, CA) MAGNESIUM 2022-06-11 08:57:00 Les Ortega [facility] ACTIVATED PARTIAL 2022-06-11 08:57:00 Demond [facility] MAGNESIUM 2022-06-11 08:57:00 Les Ortega [facility] BASIC METABOLIC PANEL 2022-06-11 08:57:00 Les Ortega [facility] (NA, K, CL, CO2, GLUCOSE, Medica l Branch BUN, CREATININE, CA) PROTHROMBIN TIME / INR 2022-06-11 08:57:00 Kirk Ambrosioadriana Vashtimala [facility] ACTIVATED PARTIAL 2022-06-11 08:57:00 Demond, [facility] HB ECG ROUTINE & RHYTHM 2022-06-11 07:47:48 Jordan [facility] ACTIVATED PARTIAL 2022-06-10 20:19:00 Demond [facility] ACTIVATED PARTIAL 2022-06-10 20:19:00 Demond [facility] HB ECG ROUTINE & RHYTHM 2022-06-10 16:35:44 Jordan [facility] HB ECG ROUTINE & RHYTHM 2022-06-10 16:35:44 Jordan [facility] MAGNESIUM 2022-06-10 08:20:00 Omkar eda [facility] BASIC METABOLIC PANEL 2022-06-10 08:20:00 Omkar eda [facility] (NA, K, CL, CO2, GLUCOSE, Medica l Branch BUN, CREATININE, CA) CBC WITH DIFF 2022-06-10 08:20:00 Leslie Espitia [facility] PROTHROMBIN TIME / INR 2022-06-10 08:20:00 Leslie Espitia [facility] ACTIVATED PARTIAL 2022-06-10 08:20:00 Demond [facility] MAGNESIUM 2022-06-10 08:20:00 Leslie Espitia [facility] BASIC METABOLIC PANEL 2022-06-10 08:20:00 Leslie Espitia [facility] (NA, K, CL, CO2, GLUCOSE, Medica l Branch BUN, CREATININE, CA) CBC WITH DIFF 2022-06-10 08:20:00 Omkar eda [facility] PROTHROMBIN TIME / INR 2022-06-10 08:20:00 Samai, Imanouel Nilson [facility] ACTIVATED PARTIAL 2022-06-10 08:20:00 Demond, [facility] EKG-12 LEAD 2022-06-10 04:08:10 Aicha [facility] ACTIVATED PARTIAL 2022-06-09 23:33:00 Demond, [facility] ACTIVATED PARTIAL 2022-06-09 23:33:00 Demond, [facility] ACTIVATED PARTIAL 2022-06-09 22:22:00 Demond, [facility] ACTIVATED PARTIAL 2022-06-09 22:22:00 Demond, [facility] BASIC METABOLIC PANEL 2022-06-09 20:19:00 Demond [facility] (NA, K, CL, CO2, GLUCOSE, Medica l Branch BUN, CREATININE, CA) BASIC METABOLIC PANEL 2022-06-09 20:19:00 Demond [facility] (NA, K, CL, CO2, GLUCOSE, Medica l Branch BUN, CREATININE, CA) HB ECG ROUTINE & RHYTHM 2022-06-09 16:45:40 Demond [facility] HB ECG ROUTINE & RHYTHM 2022-06-09 16:45:40 Demond [facility] MAGNESIUM 2022-06-09 10:03:00 Leslie Espitia [facility] BASIC METABOLIC PANEL 2022-06-09 10:03:00 Leslie Espitia Nilson [facility] (NA, K, CL, CO2, GLUCOSE, Medica l Branch BUN, CREATININE, CA) CBC WITH DIFF 2022-06-09 10:03:00 Leslie Espitia [facility] PROTHROMBIN TIME / INR 2022-06-09 10:03:00 [facility] MAG[facility]UM 2022-06-09 10:03:00 Leslie Espitia [facility] BASIC METABOLIC PANEL 2022-06-09 10:03:00 Samai[facility] (NA, K, CL, CO2, GLUCOSE, Medica l Branch BUN, CREATININE, CA) CBC WITH DIFF 2022-06-09 10:03:00 [facility] 2022-06-09 10:03:00 [facility] 2022-06-09 04:12:20 Al Hemyari, [facility] EKG-12 LEAD 2022-06-09 04:12:20 Kirk Hemyari, [facility] PROTHROMBIN TIME / INR 2022-06-08 17:35:00 Leslie Espitia [facility] PROTHROMBIN TIME / INR 2022-06-08 17:35:00 Omkar [facility] EKG-12 LEAD 2022-06-08 17:18:35 Kirk Hemyari [facility] EKG-12 LEAD 2022-06-08 17:18:35 Kirk Hemyari, [facility] MAGNESIUM 2022-06-08 10:46:00 Leslie Espitia Nilson [facility] BASIC METABOLIC PANEL 2022-06-08 10:46:00 Leslie Espitia [facility] (NA, K, CL, CO2, GLUCOSE, Medica l Branch BUN, CREATININE, CA) CBC WITH DIFF 2022-06-08 10:46:00 Leslie Espitia [facility] MAGNESIUM 2022-06-08 10:46:00 Omkar eda [facility] BASIC METABOLIC PANEL 2022-06-08 10:46:00 Leslie Espitia [facility] (NA, K, CL, CO2, GLUCOSE, Medica l Branch BUN, CREATININE, CA) CBC WITH DIFF 2022-06-08 10:46:00 Leslie Espitia [facility] EKG-12 LEAD 2022-06-08 03:55:51 [facility] 2022-06-08 03:55:51 Kirk Valenteadriana [facility] TRANSTHORACIC ECHO (TTE) 2022-06-07 17:56:10 Kirk Valenteadriana [facility] TRANSTHORACIC ECHO (TTE) 2022-06-07 17:56:10 Kirk Connell [facility] HB ECG ROUTINE & RHYTHM 2022-06-07 15:36:46 Leslie Espitia [facility] HB ECG ROUTINE & RHYTHM 2022-06-07 15:36:46 Leslie Espitia [facility] URINE DRUG (LCMSMS) - 2022-06-07 15:01:00 Opal Yen [facility] DRUG [facility] URINE DRUG (LCMSMS) - 2022-06-07 15:01:00 Opal Yen [facility] COMPREHENSIVE DRUG [facility] CBC WITH DIFF 2022-06-07 10:51:00 Opal Yen [facility] BASIC METABOLIC PANEL 2022-06-07 10:51:00 Opal Yen [facility] (NA, K, CL, CO2, GLUCOSE, Medica l Branch BUN, CREATININE, CA) IRON PANEL 2022-06-07 10:51:00 Opal Yen [facility] BASIC METABOLIC PANEL 2022-06-07 10:51:00 Opal Yen [facility] (NA, K, CL, CO2, GLUCOSE, Medica l Branch BUN, CREATININE, CA) IRON PANEL 2022-06-07 10:51:00 Opal Yen [facility] CBC WITH DIFF 2022-06-07 10:51:00 Opal Yen [facility] BASIC METABOLIC PANEL 2022-06-07 02:29:00 Opal Yen [facility] (NA, K, CL, CO2, GLUCOSE, Medica l Branch BUN, CREATININE, CA) HEPATIC FUNCTION PANEL 2022-06-07 02:29:00 Opal Yen [facility] ([id number]) (ALB,T.PRO,BILI Medical Branch T,BU/BC,ALT,AST,ALK PHOS) MAGNESIUM 2022-06-07 02:29:00 FarshadOpal [facility] FOLATE 2022-06-07 02:29:00 FarshadOpal [facility] MAGNESIUM 2022-06-07 02:29:00 FarshadOpal [facility] FOLATE 2022-06-07 02:29:00 Opal Yen [facility] HEPATIC FUNCTION PANEL 2022-06-07 02:29:00 Opal Yen [facility] ([id number]) (ALB,T.PRO,BILI Medical Branch T,BU/BC,ALT,AST,ALK PHOS) BASIC METABOLIC PANEL 2022-06-07 02:29:00 Opal Yen [facility] (NA, K, CL, CO2, GLUCOSE, Medica l Branch BUN, CREATININE, CA) HB ECG ROUTINE & RHYTHM 2022-06-07 00:50:00 Opal Yen [facility] PROTHROMBIN TIME / INR 2022-06-07 00:33:00 Opal Yen [facility] ACTIVATED PARTIAL 2022-06-07 00:33:00 Opal Yen [facility] CBC WITH DIFF 2022-06-07 00:33:00 Opal Yen [facility] FERRITIN SERUM 2022-06-07 00:33:00 Opal Yen [facility] VITAMIN B12, LEVEL 2022-06-07 00:33:00 Opal Yen [facility] FERRITIN SERUM 2022-06-07 00:33:00 Opal Yen [facility] VITAMIN B12, LEVEL 2022-06-07 00:33:00 Opal Yen [facility] CBC WITH DIFF 2022-06-07 00:33:00 Opal Yen [facility] PROTHROMBIN TIME / INR 2022-06-07 00:33:00 Opal Yen [facility] ACTIVATED PARTIAL 2022-06-07 00:33:00 Opal Yen [facility] PROTHROMBIN TIME / INR 2022-06-06 16:10:00 [place] [facility] HOSPITAL ADMISSION 2022-06-06 06:01:00 Doctor Unassigned, No [facility] CBC W/PLT COUNT & AUTO 2022-05-27 04:37:00 [facility]R 2022-05-27 04:37:00 [facility] 2022-05-27 04:37:00 Meaghan [place] [facility] BASIC METABOLIC PANEL 2022-05-27 04:37:00 Meaghan [place] [facility] CBC W/PLT COUNT & AUTO 2022-05-27 04:37:00 [facility] AP[facility] 2022-05-26 09:28:00 Efrain [facility] [place] CBC W/PLT COUNT & AUTO 2022-05-26 06:27:00 [facility] PROT[facility]BIN TIME/INR 2022-05-26 06:27:00 Rick [facility] MAGNESIUM 2022-05-26 06:27:00 Meaghan [place] [facility] BASIC METABOLIC PANEL 2022-05-26 06:27:00 Meaghan [place] [facility] APTT 2022-05-26 06:27:00 Efrain [facility] [place] CBC W/PLT COUNT & AUTO 2022-05-26 06:27:00 [facility] 2022-05-26 00:28:00 [facility] [place] [facility] 2022-05-25 22:25:00 Efrain, [facility] [place] APTT 2022-05-25 14:41:00 Efrain, [facility] [place] APTT 2022-05-25 12:13:00 Albertson, [facility] [place] BASIC METABOLIC PANEL 2022-05-25 07:29:00 Robert, [facility] MAGNESIUM 2022-05-25 07:29:00 Robert, [facility] ECG 12-LEAD 2022-05-25 06:42:59 Unknown, Hl7 [facility] ECG 12-LEAD 2022-05-25 06:42:59 Robert, [facility] ECG 12-LEAD 2022-05-25 06:42:59 Unknown, Hl7 [facility] APTT 2022-05-25 05:57:00 Efrain, [facility] APTT 2022-05-25 04:47:00 Efrain, [facility] CBC W/PLT COUNT & AUTO 2022-05-25 03:20:00 Rick, [facility] PROTHROMBIN TIME/INR 2022-05-25 03:20:00 Rick [facility] APTT 2022-05-25 03:20:00 Meaghan [place] [facility] CBC W/PLT COUNT & AUTO 2022-05-25 03:20:00 Rick, [facility] APTT 2022-05-24 20:02:00 Efrain, [facility] APTT 2022-05-24 17:36:00 Efrain, [facility] APTT 2022-05-24 10:31:00 Rick, [facility] APTT 2022-05-24 03:41:00 Efrain, [facility] APTT 2022-05-24 01:14:00 Efrain, [facility] CBC W/PLT COUNT & AUTO 2022-05-24 01:14:00 Rick, [facility] BASIC METABOLIC PANEL 2022-05-24 01:14:00 Rick [facility] MAGNESIUM 2022-05-24 01:14:00 Rick [facility] PHOSPHORUS 2022-05-24 01:14:00 Rick, [facility] PROTHROMBIN TIME/INR 2022-05-24 01:14:00 Rick, [facility] CBC W/PLT COUNT & AUTO 2022-05-24 01:14:00 Rick, [facility] APTT 2022-05-23 18:18:00 Pagan [facility] APTT 2022-05-23 16:11:00 Pagan [facility] APTT 2022-05-23 08:24:00 Pagan, [facility] CBC W/PLT COUNT & AUTO 2022-05-23 04:23:00 Rick, [facility] BASIC METABOLIC PANEL 2022-05-23 04:23:00 Rick, [facility] MAGNESIUM 2022-05-23 04:23:00 Rick, [facility] PHOSPHORUS 2022-05-23 04:23:00 Rick, [facility] PROTHROMBIN TIME/INR 2022-05-23 04:23:00 Rick, [facility] APTT 2022-05-23 04:23:00 Efrain [facility] CBC W/PLT COUNT & AUTO 2022-05-23 04:23:00 Rick [facility] APTT 2022-05-22 20:49:00 Efrain [facility] HEMOGLOBIN AND HEMATOCRIT 2022-05-22 17:54:00 Rick, [facility] APTT 2022-05-22 13:59:00 Albertson, [facility] CBC W/PLT COUNT & AUTO 2022-05-22 02:47:00 Rick, [facility] BASIC METABOLIC PANEL 2022-05-22 02:47:00 Rick, [facility] MAGNESIUM 2022-05-22 02:47:00 Rick [place] [facility] PHOSPHORUS 2022-05-22 02:47:00 [facility] PROTHROMBIN TIME/INR 2022-05-22 02:47:00 [facility]io [facility] APTT 2022-05-22 02:47:00 SerBertrand willoughby [facility] Verterra [place] CBC W/PLT COUNT & AUTO 2022-05-22 02:47:00 Rick, [facility] PREPARE RBC 2022-05-21 23:54:00 AdhiVinayak [facility] HEMOGLOBIN AND HEMATOCRIT 2022-05-21 21:35:00 [facility] PROT[facility]OMBIN TIME/INR 2022-05-21 14:45:00 Rick, [facility] APTT 2022-05-21 14:45:00 Efrain [facility] 2D ECHO W/ DOPPLER 2022-05-21 13:06:46 Vitaly Flores [facility] (CW/PW/COLOR) [place] 2D ECHO W/ DOPPLER 2022-05-21 13:06:46 Vitaly Flores [facility] (CW/PW/COLOR) [place] HEMOGLOBIN AND HEMATOCRIT 2022-05-21 12:50:00 Rick [facility] TSH/FREE T4 IF INDICATED 2022-05-21 12:50:00 Janeth Zunigaolette [facility] APTT 2022-05-21 08:34:00 Efrain [facility] CBC W/PLT COUNT & AUTO 2022-05-21 05:00:00 Rio [facility] BASIC METABOLIC PANEL 2022-05-21 05:00:00 Rick, [facility] MAGNESIUM 2022-05-21 05:00:00 Rick, [facility] PHOSPHORUS 2022-05-21 05:00:00 Rick, [facility] CBC W/PLT COUNT & AUTO 2022-05-21 05:00:00 Rick, [facility] PROTHROMBIN TIME/INR 2022-05-21 01:15:00 Rick, [facility] APTT 2022-05-21 01:15:00 Efrain [facility] HEMOGLOBIN AND HEMATOCRIT 2022-05-20 20:25:00 Rick [facility] PROTHROMBIN TIME/INR 2022-05-20 17:07:00 Rick, [facility] APTT 2022-05-20 17:07:00 [facility] HEMOGLOBIN AND HEMATOCRIT 2022-05-20 13:03:00 Rick, [facility] APTT 2022-05-20 13:02:00 [facility] TRANSFUSE LEUKO-REDUCED 2022-05-20 08:38:00 Damir Joyce [facility] RED BLOOD CELLS Center PREPARE RBC 2022-05-20 08:19:00 AdhiVinayak [facility] APTT 2022-05-20 05:03:00 Efrain [facility] CBC W/PLT COUNT & AUTO 2022-05-20 03:36:00 Rick [facility] BASIC METABOLIC PANEL 2022-05-20 03:36:00 Rick [facility] MAGNESIUM 2022-05-20 03:36:00 Rick, [facility] PHOSPHORUS 2022-05-20 03:36:00 Rick, [facility] PROTHROMBIN TIME/INR 2022-05-20 03:36:00 Rick, [facility] CBC W/PLT COUNT & AUTO 2022-05-20 03:36:00 Rick, [facility] APTT 2022-05-19 22:59:00 Efrain [facility] HEMOGLOBIN AND HEMATOCRIT 2022-05-19 21:17:00 Rio Cabreraine [facility] PROTHROMBIN TIME/INR 2022-05-19 17:05:00 Rick [facility] APTT 2022-05-19 17:05:00 [facility]EMO[facility] AND HEMATOCRIT 2022-05-19 12:11:00 Rick, Katarina [facility] PROTHROMBIN TIME/INR 2022-05-19 12:11:00 [facility] 2022-05-19 11:39:33 Unknown, Hl7 [facility] ECG 12-LEAD 2022-05-19 11:39:33 Vitaly Flores [facility] ECG 12-LEAD 2022-05-19 11:39:33 Unknown, Hl7 [facility] POCT-GLUCOSE METER 2022-05-19 05:28:00 Shadi Church [facility] Emilio [place] CBC W/PLT COUNT & AUTO 2022-05-19 03:08:00 Rick, [facility] DIFFERENTIAL [place] CBC W/PLT COUNT & AUTO 2022-05-19 03:08:00 Rick [facility] BASIC METABOLIC PANEL 2022-05-19 03:07:00 Rick [facility] MAGNESIUM 2022-05-19 03:07:00 Rick [facility] PHOSPHORUS 2022-05-19 03:07:00 Rick [facility] PROTHROMBIN TIME/INR 2022-05-19 03:07:00 Rick [facility] POCT-GLUCOSE METER 2022-05-18 23:02:00 Vinayak Cook [facility] ECG 12-LEAD 2022-05-18 21:08:01 Unknown, Hl7 [facility] ECG 12-LEAD 2022-05-18 21:08:01 Claudette Bolden [facility] ECG 12-LEAD 2022-05-18 21:08:01 Unknown, Hl7 [facility] BUN AND CREATININE 2022-05-18 20:38:00 [facility] W/RATIO [facility] POTASSIUM 2022-05-18 20:38:00 Bandeal [facility] MAGNESIUM 2022-05-18 20:38:00 [facility] HEMOGLOBIN AND HEMATOCRIT 2022-05-18 20:01:00 Rick [facility] POCT-GLUCOSE METER 2022-05-18 18:56:00 AdhiVinayak [facility] CTA ABDOMEN & PELVIS 2022-05-18 17:42:00 Rick [facility] URINALYSIS W/ REFLEX 2022-05-18 15:23:00 Rick [facility] URINE CULTURE Center PROTHROMBIN TIME/INR 2022-05-18 15:23:00 Rick [facility] HIGH SENSITIVITY TROPONIN 2022-05-18 15:23:00 [facility] URINE CULTURE 2022-05-18 15:23:00 Rick [facility] CBC (HEMOGRAM ONLY) 2022-05-18 13:05:00 Rick [facility] CALCIUM, IONIZED 2022-05-18 13:05:00 Rick [facility] POCT-GLUCOSE METER 2022-05-18 12:55:00 Sean Graham [facility] Jesus Alberto Center ABORH, MANUAL 2022-05-18 11:55:00 Floridalma Monsalve [facility] TYPE AND SCREEN, 2022-05-18 11:02:00 Rick, [facility] AUTOMATED [place] COMPREHENSIVE METABOLIC 2022-05-18 11:01:00 Rick, [facility] PANEL Center MAGNESIUM 2022-05-18 11:01:00 Rick [facility] PHOSPHORUS 2022-05-18 11:01:00 Rick, [facility] LACTIC ACID, VENOUS 2022-05-18 11:01:00 Rick, [facility] LIPASE 2022-05-18 11:01:00 Rick, [facility] B-TYPE NATRIURETIC FACTOR 2022-05-18 11:01:00 Rick, [facility] (BNP) [place] PT/APTT 2022-05-18 11:00:00 Rick, [facility] FIBRINOGEN 2022-05-18 11:00:00 Rick, [facility] ECG 12-LEAD 2022-05-18 10:34:14 Unknown, Hl7 [facility] ECG 12-LEAD 2022-05-18 10:34:14 Rick, [facility] ECG 12-LEAD 2022-05-18 10:34:14 Unknown, Hl7 [facility] HB ECG ROUTINE & RHYTHM 2022-05-10 17:51:31 [facility] PROTHROMBIN TIME / INR 2022-05-09 16:24:00 [place] [facility] CONSENT/REFUSAL FOR 2022-05-09 16:13:00 Doctor Unassigned, [facility] ASSIGNMENT OF BENEFITS 2022-05-09 16:12:36 Doctor Unassigned, No [facility] ASSIGNMENT OF BENEFITS 2022-05-09 16:12:36 Doctor Unassigned, No [facility] PROTHROMBIN TIME / INR 2022-04-11 15:46:00 [place] Dan [facility] CONSENT/REFUSAL FOR 2022-04-11 15:36:05 Doctor Unassigned, [facility] Branch ASSIGNMENT OF BENEFITS 2022-04-11 15:35:52 Doctor Unassigned, No [facility] ASSIGNMENT OF BENEFITS 2022-04-11 15:35:52 Doctor Unassigned, No [facility] MEDICATION CORRESPONDENCE 2022-03-18 06:01:00 Doctor Unassigned, No [facility] PROTHROMBIN TIME / INR 2022-03-14 15:29:00 SyJamaica Ciara [facility] CONSENT/REFUSAL FOR 2022-03-14 15:15:12 Doctor Unassigned, No [facility] DIAGNOSIS AND TREATMENT [facility] ASSIGNMENT OF BENEFITS 2022-03-14 15:15:00 Doctor Unassigned, No [facility] ASSIGNMENT OF BENEFITS 2022-03-14 15:15:00 Doctor Unassigned, No [facility] CONSENT/REFUSAL FOR 2022-02-28 18:42:52 Doctor Unassigned, No Un iversity [facility] [place] [place] DIAGNOSIS AND TREATMENT [facility] CONSENT/REFUSAL FOR 2022-02-14 14:32:17 Doctor Unassigned, No [facility] DIAGNOSIS AND [facility] ASSIGNMENT OF BENEFITS 2022-02-14 14:32:04 Doctor Unassigned, No [facility] ASSIGNMENT OF BENEFITS 2021-12-14 17:04:14 Doctor Unassigned, No [facility] HOSPITAL ADMISSION 2021-11-23 05:01:00 Doctor Unassigned, No [facility] Planned Activity [...] Counseling and Screening (12+)] Future Scheduled 2022-12-14 Influenza Vaccine (#1) [facility]00 [code = Influenza Medical Ce nter Vaccine (#1)] Future Scheduled 2022-12-[address] [...] INFLUENZA VACCINE (Season Ended)] Future Scheduled 2022-12-14 Influenza Vaccine (#1) [facility] 00:00:00 [code = Influenza Medical Ce nter Vaccine (#1)] Future Scheduled 2022-04-[address] [...] breast Medical C enter (procedure) [code = 904373989] Future Scheduled 1953 CT Colonography (combo) [facility] 00:00:00 [code = CT Colonography [facility] (combo)] Future Scheduled 1953 Screening for malignant [facility] 00:00:00 neoplasm of colon Medical Ce nter (procedure) [code = 488152808] Future Scheduled 1953 Screening for malignant [facility] 00:00:00 neoplasm of colon Medical Ce nter (procedure) [code = 883269190] Future Scheduled 1953 DXA SCAN [code = DXA [facility] 00:00:00 SCAN] [facility] Future Scheduled 1953 Screening for malignant [facility] 00:00:00 neoplasm of colon Medical Ce nter (procedure) [code = 168700745] Future Scheduled 1953 Screening for malignant [facility] 00:00:00 neoplasm of colon Medical Ce nter (procedure) [code = 980454734] Future Scheduled 1953 Sigmoidoscopy [code = [facility] S[facility]oscopy[facility] Future Scheduled 1953 Screening for malignant [facility] 00:00:00 neoplasm of breast Medical C enter (procedure) [code = 337519689] Future Scheduled 1953 CT Colonography (combo) [facility] 00:00:00 [code = CT Colonography [facility] (combo)] Future Scheduled 1953 Screening for malignant [facility] 00:00:00 neoplasm of colon Medical Ce nter (procedure) [code = 270360550] Future Scheduled 1953 Screening for malignant [facility] 00:00:00 neoplasm of colon Medical Ce nter (procedure) [code = 851955239] Future Scheduled 1953 DXA SCAN [code = DXA [facility] 00:00:00 SCAN] [facility] Future Scheduled 1953 Screening for malignant [facility] 00:00:00 neoplasm of colon Medical Ce nter (procedure) [code = 312113053] Future Scheduled 1953 Screening for malignant [facility] 00:00:00 neoplasm of colon Medical Ce nter (procedure) [code = 701375943] Future Scheduled 1953 Sigmoidoscopy [code = [facility] 00:[facility] S[facility]oidoscopy] [facility] 1953 Screening for malignant [facility] 00:00:00 neoplasm of breast Medical C enter (procedure) [code = 397150053] Future Scheduled 1953 CT Colonography (combo) [facility] 00:00:00 [code = CT Colonography [facility] (combo)] Future Scheduled 1953 Screening for malignant [facility] 00:00:00 neoplasm of colon Medical Ce nter (procedure) [code = 519789574] Future Scheduled 1953 Screening for malignant [facility] 00:00:00 neoplasm of colon Medical Ce nter (procedure) [code = 855083069] Future Scheduled 1953 DXA SCAN [code = DXA [facility] 00:00:00 SCAN] [facility] Future Scheduled 1953 Screening for malignant [facility] 00:00:00 neoplasm of colon Medical Ce nter (procedure) [code = 948962081] Future Scheduled 1953 Screening for malignant [facility] 00:00:00 neoplasm of colon Medical Ce nter (procedure) [code = 261209611] Future Scheduled 1953 Sigmoidoscopy [code = [facility] 00:00:[facility] S[facility]oscopy] [facility] Future Scheduled 1953 Screening for malignant [facility] 00:00:00 neoplasm of breast Medical C enter (procedure) [code = 806765636] Future Scheduled 1953 CT Colonography (combo) [facility] 00:00:00 [code = CT Colonography [facility] (combo)] Future Scheduled 1953 Screening for malignant [facility] 00:00:00 neoplasm of colon Medical Ce nter (procedure) [code = 961689608] Future Scheduled 1953 Screening for malignant [facility] 00:00:00 neoplasm of colon Medical Ce nter (procedure) [code = 167638348] Future Scheduled 1953 DXA SCAN [code = DXA [facility] 00:00:00 SCAN] [facility] Future Scheduled 1953 Screening for malignant [facility] 00:00:00 neoplasm of colon Medical Ce nter (procedure) [code = 345847628] Future Scheduled 1953 Screening for malignant [facility] 00:00:00 neoplasm of colon Medical Ce nter (procedure) [code = 459899667] Future Scheduled 1953 Sigmoidoscopy [code = [facility] 00:[facility] S[facility]oidoscopy] [facility] 1953 Screening for malignant [facility] 00:00:00 neoplasm of breast Medical C enter (procedure) [code = 213874541] Future Scheduled 1953 CT Colonography (combo) [facility] 00:00:00 [code = CT Colonography [facility] (combo)] Future Scheduled 1953 Screening for malignant [facility] 00:00:00 neoplasm of colon Medical Ce nter (procedure) [code = 683822253] Future Scheduled 1953 Screening for malignant [facility] 00:00:00 neoplasm of colon Medical Ce nter (procedure) [code = 814859432] Future Scheduled 1953 DXA SCAN [code = DXA [facility] 00:00:00 SCAN] [facility] Future Scheduled 1953 Screening for malignant [facility] 00:00:00 neoplasm of colon Medical Ce nter (procedure) [code = 946599129] Future Scheduled 1953 Screening for malignant [facility] 00:00:00 neoplasm of colon Medical Ce nter (procedure) [code = 667346441] Future Scheduled 1953 Sigmoidoscopy [code = [facility] 00:00:[facility] S[facility]oscopy] [facility] Future Scheduled 1953 Screening for malignant [facility] 00:00:00 neoplasm of breast Medical C enter (procedure) [code = 516453441] Future Scheduled 1953 CT Colonography (combo) [facility] 00:00:00 [code = CT Colonography [facility] (combo)] Future Scheduled 1953 Screening for malignant [facility] 00:00:00 neoplasm of colon Medical Ce nter (procedure) [code = 346660903] Future Scheduled 1953 Screening for malignant [facility] 00:00:00 neoplasm of colon Medical Ce nter (procedure) [code = 995931462] Future Scheduled 1953 DXA SCAN [code = DXA [facility] 00:00:00 SCAN] [facility] Future Scheduled 1953 Screening for malignant [facility] 00:00:00 neoplasm of colon Medical Ce nter (procedure) [code = 181465402] Future Scheduled 1953 Screening for malignant [facility] 00:00:00 neoplasm of colon Medical Ce nter (procedure) [code = 711141422] Future Scheduled 1953 Sigmoidoscopy [code = [facility] 00:00:[facility] Sigmoidoscopy] [facility] Future Scheduled 1953 Screening for malignant [facility] 00:00:00 neoplasm of breast Medical C enter (procedure) [code = 528917479] Future Scheduled 1953 CT Colonography (combo) [facility] 00:00:00 [code = CT Colonography [facility] (combo)] Future Scheduled 1953 Screening for malignant [facility] 00:00:00 neoplasm of colon Medical Ce nter (procedure) [code = 276651738] Future Scheduled 1953 Screening for malignant [facility] 00:00:00 neoplasm of colon Medical Ce nter (procedure) [code = 232469092] Future Scheduled 1953 DXA SCAN [code = DXA [facility] 00:00:00 SCAN] [facility] Future Scheduled 1953 Screening for malignant [facility] 00:00:00 neoplasm of colon Medical Ce nter (procedure) [code = 857428326] Future Scheduled 1953 Screening for malignant [facility] 00:00:00 neoplasm of colon Medical Ce nter (procedure) [code = 502969864] Future Scheduled 1953 Sigmoidoscopy [code = [facility] 00:00:[facility] Sigmoidoscopy] [facility] Scheduled 1953 Screening for malignant [facility] 00:00:00 neoplasm of breast Medical C enter (procedure) [code = 765497811] Future Scheduled 1953 CT Colonography (combo) [facility] 00:00:00 [code = CT Colonography [facility] (combo)] Future Scheduled 1953 Screening for malignant [facility] 00:00:00 neoplasm of colon Medical Ce nter (procedure) [code = 293074647] Future Scheduled 1953 Screening for malignant [facility] 00:00:00 neoplasm of colon Medical Ce nter (procedure) [code = 244952068] Future Scheduled 1953 DXA SCAN [code = DXA [facility] 00:00:00 SCAN] [facility] Future Scheduled 1953 Screening for malignant [facility] 00:00:00 neoplasm of colon Medical Ce nter (procedure) [code = 798488063] Future Scheduled 1953 Screening for malignant [facility] 00:00:00 neoplasm of colon Medical Ce nter (procedure) [code = 994356249] Future Scheduled 1953 Sigmoidoscopy [code = [facility] 00:00:[facility] S[facility]oscopy] [facility] Future Scheduled 1953 Screening for malignant [facility] 00:00:00 neoplasm of breast Medical C enter (procedure) [code = 719066234] Future Scheduled 1953 CT Colonography (combo) [facility] 00:00:00 [code = CT Colonography [facility] (combo)] Future Scheduled 1953 Screening for malignant [facility] 00:00:00 neoplasm of colon Medical Ce nter (procedure) [code = 054504035] Future Scheduled 1953 Screening for malignant [facility] 00:00:00 neoplasm of colon Medical Ce nter (procedure) [code = 790440200] Future Scheduled 1953 DXA SCAN [code = DXA [facility] 00:00:00 SCAN] [facility] Future Scheduled 1953 Screening for malignant [facility] 00:00:00 neoplasm of colon Medical Ce nter (procedure) [code = 731316933] Future Scheduled 1953 Screening for malignant [facility] 00:00:00 neoplasm of colon Medical Ce nter (procedure) [code = 756239261] Future Scheduled 1953 Sigmoidoscopy [code = [facility] 00:00:[facility] Sigmoidoscopy] Medical Cente r Future Scheduled 1953 Screening for malignant [facility] 00:00:00 neoplasm of breast Medical C enter (procedure) [code = 151113841] Future Scheduled 1953 CT Colonography (combo) [facility] 00:00:00 [code = CT Colonography [facility] (combo)] Future Scheduled 1953 Screening for malignant [facility] 00:00:00 neoplasm of colon Medical Ce nter (procedure) [code = 995147903] Future Scheduled 1953 Screening for malignant [facility] 00:00:00 neoplasm of colon Medical Ce nter (procedure) [code = 657936735] Future Scheduled 1953 DXA SCAN [code = DXA [facility] 00:00:00 SCAN] [facility] Future Scheduled 1953 Screening for malignant [facility] 00:00:00 neoplasm of colon Medical Ce nter (procedure) [code = 773874507] Future Scheduled 1953 Screening for malignant [facility] 00:00:00 neoplasm of colon Medical Ce nter (procedure) [code = 881885301] Future Scheduled 1953 Sigmoidoscopy [code = [facility] 00:00:[facility] Sigmoidoscopy] Medical Cente r Encounters Start End Encounter Admission Attending Care Care Encounter Source Date/Time Date/Time Type Type Clinicians Facility Department ID 2022-09-13 Outpatient IBRAHIM, [facility] [id number] Common 13:24:02 DANIEL [id number] [facility] 2022-08-16 Outpatient IBRAHIM, [facility] [id number] Common 12:00:01 DANIEL [id number] [facility] 2022-08-15 Outpatient IBRAHIM, [facility] [id number] Common 15:12:01 DANIEL [id number] [facility] 2022-08-14 [facility] [id number] Common 08:50:01 Saurabh [id number] [facility] 2022-06-05 Inpatient R MARIIA CARDONA [facility] [id number] Univers 07:56:00 MARIIA CARDONA ity [facility] 2021-11-20 Inpatient R REBECA HOLCOMB [facility] [id number] Univers 15:24:28 AICHAREBECA i ty [facility] 2021-09-21 Out[facility] [id number] Common 10:27:03 Saurabh [id number] [facility] 2023-02-28 2023-02-28 [facility] [id number] Univers 11:20:00 11:20:00 [place] perez o f [facility] 2022-11-12 2022-11-12 [facility] 1.2.431.692 [id number] Univers 00:00:00 00:00:00 [place] ARANDA 350.1.13.10 ity [facility] [place] [id number] [place] dic[address] 2022-11-09 2022-11-09 Orders Doctor JOHANN 1..840.114 [id number] Univers 00:00:00 00:00:00 Only Unassigned, MIKE 350.1.13.10 ity of [place] [facility] 4.2.7.2.686 Babak as [id number] [address] 2022-11-08 2022-11-08 Outpatient R HIMA [facility] [id number] Univers 08:00:00 08:00:00 WAYNE ity [facility] 2022-10-24 2022-10-24 Refill [facility] 1.2.840.114 [id number] Univers 00:00:00 00:00:00 [place] ARANDA 350.1.13.10 [place] of [place] 4[place]2.7.2.[place] [id number] [place] dic[place] NAL [address] [place] [address] 2022-10-19 2022-10-19 [facility] 1..840.114 [id number] Univers 00:00:00 00:00:00 [place] ARANDA 350.1.13.10 it[place] of [place] 4[place]7.2.[place] [phone] [place] dical [facility]9 [facility] 2022-10-04 2022-10-04 Telephone [facility] 1.2.953.814 [id number] Univers 00:00:00 00:00:00 [place] ARANDA 350.1.13.10 it[facility] 4.2.7.2.[place] [id number] [place] dicne NAL [address] [place] [address] 2022-10-04 2022-10-04 Telephone [facility] 1.2.251.072 [id number] Univers 00:00:00 00:00:00 [place] ARANDA 350.1.13.10 ity [facility] 4.2.7.2.[place] [id number] [address] 2022-10-04 2022-10-04 Orders Doctor JOHANN 1.2.840.114 [id number] Univers 00:00:00 00:00:00 Only Unassigned, MIKE 350.1.13.10 ity of [place] [facility] 4.2.7.2.686 Babak as [id number] [address] 2022-09-26 2022-09-27 Outpatient R [facility] [id number] [facility] 10:00:00 13:19:48 [place] scotty o f [facility] 2022-09-26 2022-09-26 Office [facility] 1.2.840.114 [id number] [facility] 10:00:00 10:10:00 Visit [place] ARANDA 350.1.13.10 it[place] 4.2.7.2.[place] [id number] [place] dicne NAL [address] [place] [address] 2022-09-26 2022-09-26 Piece Dyer Farnaz, Andre Lab Main [facility] 1.2.8 40.114 [id number] Univers 09:45:00 10:00:00 Visit Yolande Santacruz 350.1.13.10 ity of [place] 4.2.7.2.[place] [id number] [place] dical NAL 353 [facility] 2022-09-26 2022-09-26 Telephone [facility] 1.2.264.023 [id number] Univers 00:00:00 00:00:00 Catrinamerzaheer [place] 350.1.13.10 ity of [place] 4.2.7.2.[place] [id number] Ky dical NAL 9 [facility] 2022-08-29 2022-08-29 Telephone [facility] 1.2.988.128 [id number] Univers 00:00:00 00:00:00 Qiamerjun [place] 350.1.13.10 ity of [place] 4.2.7.2.[place] [id number] [place] dical NAL [address] [place] [address] 2022-08-29 2022-08-29 [facility] 1.2.865.633 [id number] Univers 00:00:00 00:00:00 [place] 350.1.13.10 ity [place] 4.2.7.2.686 [place] [id number] [place] dicne NAL [address] [place] [address] 2022-08-28 2022-08-28 [facility] [id number] Univers 15:40:00 16:40:51 [place] ity o f [facility] 2022-08-28 2022-08-28 Office [facility] 1.2.840.114 [id number] Univers 15:40:00 16:40:51 Visit [place] ARANDA 350.1.13.10 ity of [place] 4.2.7.2.686 [place] [id number] [place] dical NAL [address] [place] [address] 2022-08-28 2022-08-28 Piece Dyer Andre Osei Lab Main [facility] 1.2.8 40.114 [id number] Univers 13:30:00 13:45:00 Visit aJmaica Dan 350.1.13.10 ity of [place] 4.2.7.2.686 [place] [id number] Ky dical NAL 353 [facility] 2022-08-28 2022-08-28 Office [facility] 1.2.840.114 [id number] Univers 13:00:00 13:27:01 Visit [place] ARANDA 350.1.13.10 ity [facility] 4.2.7.2.[place] [phone] [place] dical NAL 059 [facility] 2022-08-23 2022-08-23 Orders Doctor JOHANN 1.2.840.114 [id number] Univers 00:00:00 00:00:00 Only Unassigned, MIKE 350.1.13.10 ity of [place] [facility] 4.2.7.2.686 Babak as [id number] [facility] [address] [place] 2022-08-22 2022-08-22 Telephone [facility] 1.2.262.615 [id number] Univers 00:00:00 00:00:00 [place] ARANDA 350.1.13.10 it[place] of [place] 4.2.7.2.[place] [id number] Ky dical NAL 059 [facility] 2022-08-01 2022-08-01 Outpatient R [facility] [id number] Univers 10:11:06 23:59:00 JOSEPH ity of [facility] 2022-08-01 2022-08-01 [facility] 1.2.840.114 [id number] Univers 10:11:06 23:59:00 Encounter Joseph ARANDA 350.1.13.10 ity [facility] 4.2.7.2.[place] [id number] [facility] [address] [place] 2022-08-01 2022-08-01 Office [facility] 1.2.840.114 [id number] Univers 15:50:00 16:00:00 Visit [place] ARANDA 350.1.13.10 ity [facility] 4.2.7.2.[place] [id number] Ky dical NAL 059 [facility] 2022-08-01 2022-08-01 Piece Dyer Farnaz, Adc Lab Main [facility] 1.2.8 40.114 [id number] Univers 11:00:00 11:15:00 Visit Sy [place] ARANDA 350.1.13.10 it[place] 4.2.7.2.[place] [id number] Ky dical NAL 353 [facility] 2022-08-01 2022-08-01 Telephone [facility] 1.2.773.325 [id number] Univers 00:00:00 00:00:00 [place] GRAYSONJAVIER 350.1.13.10 ity of [place] 4.2.7.2.[place] [id number] Ky dical NAL 059 [facility] 2022-07-31 2022-07-31 Telephone [facility] 1.2.132.454 [id number] Univers 00:00:00 00:00:00 [place] GRAYSONJAVIER 350.1.13.10 ity of [place] 4.2.7.2.[place] [id number] Ky dical NAL 059 [facility] 2022-07-10 2022-07-10 Office Sy, 1.2.840.6 [id number] Univers 13:00:00 14:24:58 Visit [place] 61892.1.1 ity of 3.104.2.7 [place] .3.383796 Medica l .[address] [place] 2022-07-10 2022-07-10 [facility] [id number] Univers 13:00:00 13:00:00 [place] ity o f [facility] 2022-07-10 2022-07-10 Piece Dyer [place] Dan 1.2.840.1 [id number] Univers 10:00:00 10:15:00 Visit Farnaz, Adc Lab Main 36743.1.1 ity of 3.104.2.7 [place] .3.802313 Medica l .8 [place] 2022-07-10 2022-07-10 Orders Doctor 1.2.840.0 [id number] Univers 00:00:00 00:00:00 Only Unassigned, 90461.1.1 ity of [place] 3.104.2.7 [place] .3.850144 Medica l .8 Branch 2022-07-10 2022-07-10 Telephone Sy, 1.2.840.8 [id number] Univers 00:00:00 00:00:00 [place] 39642.1.1 ity of 3.104.2.7 [place] .3.274734 Medica l .8 [place] 2022-06-25 2022-06-25 Outpatient R SY, [facility] [id number] Univers 15:40:00 16:09:43 [place] ity o f [facility] 2022-06-25 2022-06-25 Office Sy, 1.2.840.7 [id number] Univers 15:40:00 16:09:43 Visit [place] 02661.1.1 ity of 3.104.2.7 [place] .3.343903 Medica l .8 [place] 2022-06-25 2022-06-25 Piece Dyer [place] Dan 1.2.840.1 [id number] Univers 11:45:00 12:00:00 Visit Pofredy, Adc Lab Main 95227.1.1 ity of 3.104.2.7 [place] .3.581460 Medica l .8 [place] 2022-06-25 2022-06-25 Office Sy, 1.2.840.9 [id number] Univers 11:20:00 11:20:00 Visit [place] 76566.1.1 ity of 3.104.2.7 [place] .3.218739 Medica l .8 [place] 2022-06-25 2022-06-25 Telephone Sy, 1.2.840.6 [id number] Univers 00:00:00 00:00:00 [place] 94162.1.1 ity of 3.104.2.7 [place] .3.770983 Medica l .8 [place] 2022-06-25 2022-06-25 Travel 1.2.840.1 1.2.151.937 [id number] Univers 00:00:00 00:00:00 34002.1.1 350.1.13.10 ity of 3.104.2.7 4[place].3.698 [place] .3.589646 084.8 Medica l .8 Branch 2022-06-13 2022-06-13 Transition Isaak, 1.2.840.0 [id number] Univers 00:00:00 00:00:00 of Care Jeremy Ricardo 89504.1.1 it y of 3.104.2.7 [place] .3.110535 Medica l .8 Branch 2022-06-06 2022-06-12 Inpatient R KRIK VASHTI [facility] [id number] Univers 17:19:00 12:24:00 MARIIA CARDONA ity of [facility] 2022-06-06 2022-06-12 Hospital Al Hemyari, 1.2.840.6 [id number] Univers 17:19:00 12:24:00 Encounter Mariia 87893.1.1 it y of 3.104.2.7 [place] .3.353832 Medica l .8 Branch 2022-06-06 2022-06-06 Piece Dyer [place] Dan 1.2.840.1 [id number] Univers 10:15:00 10:30:00 Visit Farnaz, Adc Lab Main 80058.1.1 ity of [place] 3.104.2.7 [place] .3.896392 Medica l .8 Branch 2022-06-06 2022-06-06 Telephone Sy 1.2.840.3 [id number] Univers 00:00:00 00:00:00 [place] 96368.1.1 ity of 3.104.2.7 [place] .3.216856 Medica l .8 Branch 2022-06-06 2022-06-06 Travel 1.2.840.1 1.2.030.146 [id number] Univers 00:00:00 00:00:00 00124.1.1 350.1.13.10 ity of 3.104.2.7 4[place].3.698 [place] .3.170596 084.8 Medica l .8 Branch 2022-06-05 2022-06-05 Telephone Sewani, 1.2.840.2 [id number] Univers 00:00:00 00:00:00 [place] 22729.1.1 ity of 3.104.2.7 [place] .3.968690 Medica l .8 Branch 2022-05-29 2022-05-29 Telephone Sewani, 1.2.840.0 [id number] Univers 00:00:00 00:00:00 [place] 39597.1.1 ity of 3.104.2.7 [place] .3.038729 Medica l .8 [place] 2022-05-18 2022-05-27 [facility] Sean Astudillous [facility] [id number] [facility] 08:42:00 16:40:00 Encounter Adhi, Vinayak Evans [facility], [facility], [facility], Meaghan Leyva 2022-05-18 2022-05-27 Inpatient ER [facility] [id number] [facility] 08:42:00 16:40:00 MEAGHAN 2022-05-18 2022-05-27 [facility] ER Sean Grahamus [facility] [id number] [facility] 08:42:00 16:40:00 Encounter Vinayak Cook [facility] Meaghan Leyva 2022-05-19 2022-05-[address] [facility] [id number] [facility] 00:[facility]:00 [facility] 2022-05-19 2022-05-[address] [facility] [id number] [facility] 00:[facility]:00 [facility] 2022-05-18 2022-05-18 [facility] [id number] 00:00:00 00:00:00 Only [facility] 2022-05-18 2022-05-18 Telephone Santos [facility] [id number] 00:00[facility]00 00:00:00 [facility] 2022-05-18 2022-05-18 Orders [facility] [id number] 00:00:00 00:00:00 Only [facility] 2022-05-18 2022-05-18 Telephone Santos [facility] [id number] 00:00:00 00:00:00 [facility] 2022-05-10 2022-05-10 Outpatient R HIMA [facility] [id number] Univers 11:40:00 12:05:03 WANYE ity of [facility] 2022-05-10 2022-05-10 Office [facility], 1.2.840.3 [id number] Univers 11:40:00 12:05:03 Visit Wayne 93200.1.1 ity of 3.104.2.7 [place] .3.689483 Medica l .8 [place] 2022-05-10 2022-05-10 Travel 1.2.840.1 1.2.380.087 [id number] Univers 00:00:00 00:00:00 74917.1.1 350.1.13.10 ity of 3.104.2.7 4[place].3.698 [place] .3.649564 084.8 Medica l .8 [place] 2022-05-09 2022-05-09 Piece Dyer [place] 1.2.840.1 [id number] Univers 10:30:00 10:45:00 Visit Pob, Adc Lab Main 33477.1.1 ity of 3.104.2.7 [place] .3.759508 Medica l .8 [place] 2022-05-09 2022-05-09 Outpatient R SY [facility] [id number] Univers 10:30:00 10:30:00 JAMAICA perez o f [facility] 2022-05-09 2022-05-09 Orders Doctor 1.2.840.1 [id number] Univers 00:00:00 00:00:00 Only Unassigned, 95384.1.1 ity of [place] 3.104.2.7 [place] .3.589135 Medica l .8 [place] 2022-05-09 2022-05-09 Telephone Sy, 1.2.840.6 [id number] Univers 00:00:00 00:00:00 [place] 04706.1.1 ity of 3.104.2.7 [place] .3.129775 Medica l .8 [place] 2022-04-12 2022-04-12 [facility] [id number] Univers 11:00:00 11:00:00 WAYNE ity [facility] 2022-04-12 2022-04-12 [facility] [id number] Univers 11:00:00 11:00:00 WAYNE ity [facility] 2022-04-11 2022-04-11 Piece Dyer [place] 1.2.840.1 [id number] Univers 09:45:00 10:00:00 Visit Pob, Adc Lab Main 64885.1.1 ity of 3.104.2.7 [place] .3.860881 Medica l .8 [place] 2022-04-11 2022-04-11 Outpatient R SY [facility] [id number] Univers 09:45:00 09:45:00 J[place]ICA scotty o f [facility] 2022-04-11 2022-04-11 Orders Doctor 1.2.840.3 [id number] Univers 00:00:00 00:00:00 Only Unassigned, 81154.1.1 ity of [place] 3.104.2.7 [place] .3.787009 Medica l .8 [place] 2022-04-11 2022-04-11 Telephone Sy, 1.2.840.2 [id number] Univers 00:00:00 00:00:00 [place] 09586.1.1 ity of 3.104.2.7 [place] .3.649271 Medica l .8 [place] 2022-03-30 2022-03-30 Refill Sy, 1.2.840.6 [id number] Univers 00:00:00 00:00:00 [place] 06136.1.1 ity of 3.104.2.7 [place] .3.551703 Medica l .8 [place] 2022-03-15 2022-03-15 Telephone Sewani, 1.2.840.4 [id number] Univers 00:00:00 00:00:00 Wayne 71472.1.1 ity of 3.104.2.7 [place] .3.075015 Medica l .8 [place] 2022-03-14 2022-03-14 Piece Dyer [place] 1.2.840.1 [id number] Univers 09:30:00 09:45:00 Visit Pob, Adc Lab Main 18067.1.1 ity of 3.104.2.7 [place] .3.344457 Medica l .8 [place] 2022-03-14 2022-03-14 Outpatient R SY [facility] [id number] Univers 09:30:00 09:30:00 J[place] perez o f [facility] 2022-03-14 2022-03-14 Orders Doctor 1.2.840.5 [id number] Univers 00:00:00 00:00:00 Only Unassigned, 80932.1.1 ity of [place] 3.104.2.7 [place] .3.512840 Medica l .8 [place] 2022-03-14 2022-03-14 Telephone Sy, 1.2.840.8 [id number] Univers 00:00:00 00:00:00 [place] 11866.1.1 ity of 3.104.2.7 [place] .3.730614 Medica l .8 [place] 2022-02-28 2022-02-28 Piece Dyer 1, Adc Lab [facility] 1.2.840.114 [id number] Univers 13:30:00 13:45:00 Visit [place] Dan [place] 350.1.13.10 ity of [place] 4.2.7.2.686 [place] [id number] [facility] [address] 2022-02-28 2022-02-28 Outpatient R SY, [facility] [id number] Univers 13:00:00 13:20:24 J[place] jimenes [facility] 2022-02-28 2022-02-28 Office [facility] 1.2.840.114 [id number] Univers 13:00:00 13:20:24 Visit [place] ARANDA 350.1.13.10 ity of [place] 4.2.7.2.686 [place] [phone] [place] dicne NAL [address] [place] [address] 2022-02-28 2022-02-28 Outpatient R [facility], [facility] [id number] Univers 13:00:00 13:00:00 CATRINAZAHEER perez [facility] 2022-02-28 2022-02-28 Outpatient R [facility], [facility] [id number] Univers 13:00:00 13:00:00 JAMAICA perez [facility] 2022-02-28 2022-02-28 Outpatient R [facility], [facility] [id number] Univers 13:00:00 13:00:00 [facility] 2022-02-28 2022-02-28 Orders Doctor JOHANN 1.2.840.114 [id number] Univers 00:00:00 00:00:00 Only Unassigned, MIKE 350.1.13.10 ity of [place] [facility] 4.2.7.2.686 Babak as [phone] [facility] [address] 2022-02-28 2022-02-28 Telephone [facility] 1.2.365.740 [id number] Univers 00:00:00 00:00:00 [place] ARANDA 350.1.13.10 ity of [place] 4.2.7.2.686 [place] [phone] Ky dical NAL 059 [facility] 2022-02-14 2022-02-14 Piece Dyer Farnaz, Adc Lab Main [facility] 1.2.8 40.114 [id number] Univers 09:45:00 10:00:00 Visit [place] Dan 350.1.13.10 ity of [place] 4.2.7.2.686 [place] [phone] Ky dickirk NAL 353 [facility] 2022-02-14 2022-02-14 Outpatient R SY [facility] [id number] Univers 09:45:00 09:45:00 ROGERZAHEER ity o f [facility] 2022-02-14 2022-02-14 Orders Doctor JOHANN 1.2.840.114 [id number] Univers 00:00:00 00:00:00 Only Unassigned, MIKE 350.1.13.10 ity of [place] [facility] 4.2.7.2.686 Babak as [phone] [address] 2022-02-14 2022-02-14 Telephone [facility] 1.2.550.087 [id number] Univers 00:00:00 00:00:00 [place] ARANDA 350.1.13.10 ity of [place] 4.2.7.2.686 [place] [phone] Ky dickirk NAL 059 [facility] 2022-02-13 2022-02-13 [facility] 1.2.840.114 [id number] Univers 00:00:00 00:00:00 [place] ARANDA 350.1.13.10 ity of [place] 4.2.7.2.686 [place] [phone] Ky dickirk BURGESS 059 [facility] 2022-01-27 2022-01-27 Telephone [facility] 1.2.464.870 [id number] Univers 00:00:00 00:00:00 [place] 350.1.13.10 ity of [place] 4.2.7.2.686 [place] [id number] Ky dical NAL 059 [facility] 2022-01-25 2022-01-25 Piece Dyer Farnaz, Adc Lab Main [facility] 1.2.8 40.114 [id number] Univers 08:45:00 09:00:00 Visit [place] Dan 350.1.13.10 ity of [place] 4.2.7.2.686 [place] [phone] Ky dical NAL 353 [facility] 2022-01-25 2022-01-25 Outpatient R SY, [facility] [id number] Univers 08:45:00 08:45:00 [place] itjake o f [facility] 2022-01-19 2022-01-19 Piece Dyer Farnaz, Adc Lab Main [facility] 1.2.8 40.114 [id number] Univers 12:30:00 12:45:00 Visit [place] DanTON 350.1.13.10 ity of [place] 4.2.7.2.686 [place] [id number] Ky dicne NAL [address] [place] [address] 2022-01-19 2022-01-19 Outpatient R SY, [facility] [id number] Univers 12:30:00 12:30:00 J[place] perez o [facility] 2022-01-19 2022-01-19 Telephone [facility] 1.2.988.558 [id number] Univers 00:00:00 00:00:00 [place] 350.1.13.10 ity of [place] 4.2.7.2.686 [place] [id number] [facility] NAL 059 [facility] 2022-01-17 2022-01-17 Piece Dyer Farnaz, Adc Lab Main [facility] 1.2.8 40.114 [id number] Univers 08:45:00 09:00:00 Visit [place] DanTON 350.1.13.10 ity of [place] 4.2.7.2.686 [place] [phone] Ky dical NAL 353 [facility] 2022-01-17 2022-01-17 Outpatient R SY, [facility] [id number] Univers 08:45:00 08:45:00 [place] itjake o [facility] 2022-01-17 2022-01-17 [facility] 1.2.348.482 [id number] Univers 00:00:00 00:00:00 Qiangzaheer [place] 350.1.13.10 ity of [place] 4.2.7.2.686 [place] [phone] Ky dical NAL 059 [facility] 2021-12-28 2021-12-28 Piece Dyer Andre Osei Lab Main [facility] 1.2.8 40.114 [id number] Univers 10:30:00 10:45:00 Visit Yolande Santacruz 350.1.13.10 ity of [place] 4.2.7.2.686 [place] [id number] Ky dical NAL 353 [facility] 2021-12-28 2021-12-28 Outpatient R IVAN [facility] [id number] Univers 10:30:00 10:30:00 YOLANDE perez [facility] [place] [facility] 2021-12-28 2021-12-28 Telephone YANY Dan 1.2.871.524 [id number] Univers 00:00:00 00:00:00 Qiangjun PEDIATRIC 350.1.13.10 [place]y of [place]2.[place].2.686 [place] [id number] [address] 2021-12-15 2021-12-15 [facility]phone [facility] 1.2.903.769 [id number] Univers 00:00:00 00:00:00 Qiangjun [place] 350.1.13.10 ity of [place] 4.2.7.2.686 [place] [id number] Ky dical NAL [address] [place] [address] 2021-12-15 2021-12-15 Telephone [facility] 1.2.073.563 [id number] Univers 00:00:00 00:00:00 Qiangjun [place] 350.1.13.10 ity of [place] 4.2.7.2.686 [place] [phone] Ky dical NAL 9 [facility] 2021-12-15 2021-12-15 Refill [facility] 1.2.840.114 [id number] Univers 00:00:00 00:00:00 Qiangjun [place] 350.1.13.10 ity of [place] 4.2.7.2.686 [place] [id number] Ky dical NAL [address] [place] [address] 2021-12-14 2021-12-14 Piece Dyer Farnaz, Adc Lab Main [facility] 1.2.8 40.114 [id number] Univers 12:30:00 12:45:00 Visit [place] Dan 350.1.13.10 ity [facility] 4.2.7.2.[place] [id number] Ky dical [facility] 353 [facility] 2021-12-14 2021-12-14 Outpatient R [facility] [id number] Univers 12:30:00 12:30:00 QIAJUAN ity o f [facility] 2021-12-14 2021-12-14 Orders Doctor JOHANN 1.2.840.114 [id number] Univers 00:00:00 00:00:00 Only Unassigned, MIKE 350.1.13.10 ity of [place] [facility] 4.2.7.2.686 Babak as [id number] [facility] 00[address] [place] 2021-12-04 2021-12-04 Piece Dyer Farnaz, Adc Lab Main [facility] 1.2.8 40.114 [id number] Univers 14:15:00 14:30:00 Visit [place] DanJAVIER 350.1.13.10 ity of [facility] 4.2.7.2.686 [place] [id number] [address] 2021-12-04 2021-12-04 Outpatient R [facility] [id number] Univers 14:15:00 14:15:00 J[place] scotty o f [facility] 2021-12-04 2021-12-04 Outpatient R [facility] [id number] Univers 14:15:00 14:15:00 ROGERJUN ity o f [facility] 2021-12-04 2021-12-04 Transition ALESIA aGmez 1.2.840.114 [id number] Univers 00:00:00 00:00:00 of Care Georgie MARIAY 350.1.13.10 it y of [place] 4.2.7.2.686 [place] [id number] [facility] [address] [place] 2021-12-04 2021-12-04 Telephone [facility] 1.2.809.602 [id number] Univers 00:00:00 00:00:00 [place] ARANDA 350.1.13.10 ity of [place] 4.2.7.2.686 [place] [id number] Ky dical NAL 059 [facility] 2021-11-23 2021-12-01 Inpatient R REBECA HOLCOMB [facility] MCA 10 [id number] Univers 15:31:00 14:11:00 REBECA HOLCOMB ity of [facility] 2021-11-23 2021-12-01 [facility] SHAYAN Holcomb 1.2.004.929 [id number] Univers 15:31:00 14:11:00 Encounter Rebeca MCKEON 350.1.13.10 ity of [facility] 4.2.7.2.686 Babak as [id number] [facility] 0[address] [place] 2021-12-01 2021-12-01 Telephone [facility] 1.2.060.395 [id number] Univers 00:00:00 00:00:00 Wayne ROSI 350.1.13.10 i ty of [place] 4.2.7.2.[place] [id number] Ky dicne NAL 059 [facility] 2021-11-23 2021-11-23 Orders Doctor JOHANN 1.2.840.114 [id number] Univers 00:00:00 00:00:00 Only Unassigned, MIKE 350.1.13.10 ity of [place] [facility] 4.2.7.2.686 Babak as [id number] [facility] 009 [place] 2021-11-22 2021-11-22 Piece Dyer Farnaz, Andre Lab Main [facility] 1.2.8 40.114 [id number] Univers 07:45:00 08:00:00 Visit [place] Dan 350.1.13.10 ity of [place] 4.2.7.2.686 [place] [id number] Ky dical NAL 353 [facility] 2021-11-22 2021-11-22 Outpatient R SY [facility] [id number] Univers 07:45:00 07:45:00 [place] perez o [facility] 2021-11-22 2021-11-22 Outpatient R SY, [facility] [id number] Univers 07:45:00 07:45:00 J[place] scotty o [facility] 2021-11-20 2021-11-20 Telephone [facility] 1.2.703.241 [id number] Univers 00:00:00 00:00:00 Catrinamerzaheer ROSI 350.1.13.10 ity of [place] 4.2.7.2.686 [place] [phone] Ky dical [address] 2021-11-10 2021-11-10 Piece Dyer Farnaz, Adc Lab Main [facility] 1.2.8 40.114 [id number] Univers 16:45:00 17:00:00 Visit [place] DanJAVIER 350.1.13.10 ity of [place] 4.2.7.2.686 [place] [id number] [facility] 353 [facility] 2021-11-10 2021-11-10 Outpatient R SY, [facility] [id number] Univers 16:45:00 16:45:00 [place] perez o [facility] 2021-11-10 2021-11-10 Outpatient R SY, [facility] [id number] Univers 16:45:00 16:45:00 J[place] scotty o [facility] 2021-11-10 2021-11-10 Telephone [facility] 1.2.442.105 [id number] Univers 00:00:00 00:00:00 [place] ARANDA 350.1.13.10 ity of [place] 4.2.7.2.686 [place] [phone] Ky dical [address] 2021-11-07 2021-11-07 Telephone Stefanie [facility] 1.2.840.114 [id number] Univers 00:00:00 00:00:00 h, TeamVisibility 350.1.13.10 i ty of [place] 4.2.7.2.686 [place] [id number] [place] [address] [address] OFFICE BUILDING 2021-11-06 2021-11-06 Piece Dyer Farnaz, Adc Lab Main [facility] 1.2.8 40.114 [id number] Univers 13:15:00 13:30:00 Visit [place] Dan 350.1.13.10 ity of [place] 4.2.7.2.686 [place] [phone] Ky dical [facility] 353 [facility] 2021-11-06 2021-11-06 Outpatient R SY, [facility] [id number] Univers 13:15:00 13:15:00 [place] scotty o f [facility] 2021-11-06 2021-11-06 Outpatient R SY, [facility] [id number] Univers 13:15:00 13:15:00 [place] perez o [facility] 2021-11-06 2021-11-06 Telephone [facility] 1.2.921.702 [id number] Univers 00:00:00 00:00:00 [place] ARANDA 350.1.13.10 ity [facility] 4.2.7.2.686 [place] [phone] [address] 2021-11-06 2021-11-06 Telephone [facility] 1.2.250.700 [id number] Univers 00:00:00 00:00:00 Wayne HEALTH 350.1.13.10 it y of [place] 4.2.7.2.686 [place] [id number] [address] OFFICE BUILDING 2021-11-03 2021-11-03 Outpatient R HIMA, [facility] [id number] Univers 15:00:00 15:40:28 WAYNE ity [facility] 2021-11-03 2021-11-03 Outpatient [facility] [id number] Univers 15:00:00 15:40:28 WAYNE ity [facility] 2021-11-03 2021-11-03 [facility] 1.2.840.114 [id number] Univers 15:00:00 15:20:00 Visit Wayne [place] 350.1.13.10 i ty of [place] 4.2.7.2.686 [place] [id number] Ky dical NAL 059 [facility] 2021-11-03 2021-11-03 Outpatient R HIMA, [facility] [id number] Univers 15:00:00 15:00:00 WAYNE ity [facility] 2021-11-03 2021-11-03 Piece Dyer Farnaz, Adc Lab Main [facility] 1.2.8 40.114 [id number] Univers 14:30:00 14:45:00 Visit [place] Dan 350.1.13.10 ity of [place] 4.2.7.2.686 [place] [phone] Ky dicne NAL 353 [facility] 2021-11-03 2021-11-03 Outpatient [facility] [id number] Univers 11:00:00 11:00:00 [facility] 2021-11-03 Out[facility] [id number] Univers 11:00:00 11:00:00 WAYNE ity [facility] 2021-11-03 2021-11-03 Outpatient [facility] [id number] Univers 11:00:00 11:00:00 [facility] 2021-11-03 2021-11-03 Telephone [facility] 1.2.579.894 [id number] Univers 00:00:00 00:00:00 [place] ARANDA 350.1.13.10 ity [facility] 4.2.7.2.686 [place] [id number] Ky dical NAL 9 [facility] 2021-10-25 2021-10-25 Refill [facility] 1.2.840.114 [id number] Univers 00:00:00 00:00:00 [place] 350.1.13.10 ity of [facility] 4.2.7.2.686 [place] [id number] Ky dical NAL 059 [facility] 2021-10-23 2021-10-23 Piece Dyer Farnaz, Adc Lab Main [facility] 1.2.8 40.114 [id number] Univers 10:15:00 10:30:00 Visit [place] Dan 350.1.13.10 ity of [place] 4.2.7.2.686 [place] [phone] Ky dical NAL 353 [facility] 2021-10-23 2021-10-23 Outpatient R [facility] [id number] Univers 10:15:00 10:15:00 JAMAICA ity o f [facility] 2021-10-23 2021-10-23 Outpatient R [facility] [id number] Univers 10:15:00 10:15:00 [place] scotty o f [facility] 2021-10-23 2021-10-23 Orders Doctor JOHANN 1.2.840.[id number] [place] [address] 00:00:00 00:00:00 Only Unassigned, MIKE 350.1.13.10 ity of [place] [facility] 4.2.7.2.686 Babak as [phone] [address] 2021-10-23 2021-10-23 Refill [facility] 1.2.840.114 [id number] Univers 00:00:00 00:00:00 [place] ARANDA 350.1.13.10 ity of [place] 4.2.7.2.686 [place] [phone] Ky dical NAL 059 [facility] 2021-10-23 2021-10-23 Telephone [facility] 1.2.737.458 [id number] 1983 [facility] 00:00:00 00:00:00 [place] ARANDA 350.1.13.10 ity of [place] 4.2.7.2.686 [place] [id number] Ky dical NAL 059 [facility] 2021-10-18 2021-10-18 Piece Dyer Andre Osei Lab Main [facility] 1.2.8 40.114 [id number] Univers 09:30:00 09:45:00 Visit [place] Dan 350.1.13.10 ity of [place] 4.2.7.2.686 [place] [id number] Ky dical NAL 353 [facility] 2021-10-18 2021-10-18 Outpatient R SY, [facility] [id number] Univers 09:30:00 09:30:00 QIAJUNA ity o f [facility] 2021-10-18 2021-10-18 Outpatient R SY, [facility] [id number] Univers 09:30:00 09:30:00 QIAJUAN ity o f [facility] 2021-10-18 2021-10-18 Telephone [facility] 1.2.868.744 [id number] Univers 00:00:00 00:00:00 Qiangjun [place] 350.1.13.10 ity of [place] 4.2.7.2.686 [phone] [place] NAL 059 [facility] 2021-10-13 2021-10-13 Piece Dyer Farnaz, Adc Lab Main [facility] 1.2.8 40.114 [id number] Univers 10:45:00 11:00:00 Visit [place] [id number] [id number] [phone] [place] NAL 353 [facility] 2021-10-13 2021-10-13 Outpatient R SY, [facility] [id number] Univers 10:45:00 10:45:00 [place] ity o [facility] 2021-10-13 2021-10-13 Outpatient R SY, [facility] [id number] Univers 10:45:00 10:45:00 QIANGJUN ity o [facility] 2021-10-13 2021-10-13 Telephone Sy, [facility] [id number] Univers 00:00:00 00:00:00 Qiangjun [place] [id number] [id number] [phone] [place] NAL 059 [facility] 2021-09-27 2021-09-27 Piece Dyer Farnaz, Adc Lab Main [facility] 1.2.8 40.114 [id number] Univers 10:15:00 10:30:00 Visit [place] [id number] [id number] [phone] [place] NAL 353 [facility] 2021-09-27 2021-09-27 Outpatient R SY, [facility] [id number] Univers 10:15:00 10:15:00 QIAJUAN ity o f [facility] 2021-09-27 2021-09-27 Outpatient R SY, [facility] [id number] Univers 10:15:00 10:15:00 QIANGJUN ity o f [facility] 2021-09-27 2021-09-27 Telephone [facility] [id number] Univers 00:00:00 00:00:00 Qiamerjun [place] [id number] [facility] [id number] [phone] [place] dic[place] NAL 059 [facility] 2021-09-27 2021-09-27 Telephone [facility] [id number] Univers 00:00:00 00:00:00 Qiamerjun [place] [id number] [facility] [id number] [phone] [place] NAL 9 [facility] 2021-09-21 2021-09-21 Refill [facility] [id number] Univers 00:00:00 00:00:00 Qiamerjun [place] [id number] [place] [phone] [place] NAL 9 [facility] 2021-09-01 2021-09-01 Telephone [facility] [id number] Univers 00:00:00 00:00:00 Qiangjun [place] [id number] [id number] [phone] [place] NAL [address] [place] [address] 2021-08-30 2021-08-30 Piece Dyer Farnaz, Andre Lab Main [facility] 1.2.8 40.114 [id number] Univers 09:00:00 09:15:00 Visit [place] Dan [id number] [facility] [id number] [phone] [place] dickirk [facility] 353 [facility] 2021-08-30 2021-08-30 [facility] [id number] [facility] [place] 09:00:00 09:00:00 [place] scotty o [facility] 2021-08-30 2021-08-30 Outpatient R SY, [facility] [id number] [facility] [place] 09:00:00 09:00:00 [place] scotty o [facility] 2021-08-30 2021-08-30 Orders Doctor JOHANN 1.2.840.114 [id number] Univers 00:00:00 00:00:00 Only Unassigned, MIKE 350.1.13.10 ity of [place] [facility] 4.2.7.2.686 Babak as [id number] [address] 2021-08-30 2021-08-30 Telephone [facility] 1.2.094.056 [id number] [facility] [place] 00:00:00 00:00:00 [place] ARANDA 350.1.13.10 ity [facility] 4.2.7.2.[place] [phone] [place] [address]689 [facility] 2021-08-28 2021-08-28 Office [facility] 1.2.840.114 [id number] Univers 10:40:00 10:49:42 Visit [place] ARANDA 350.1.13.10 ity of [facility] 4.2.7.2.[place] [id number] Ky dical NAL [address] [place] [address] 2021-08-28 2021-08-28 [facility] [id number] Univers 10:40:00 10:49:42 [place] ity o [facility] 2021-08-28 2021-08-28 [facility] [id number] Univers 10:40:00 10:40:00 CATRINAJUAN ity o [facility] 2021-08-282021-08-28 Outpatient R [facility], [facility] [id number] Univers 10:40:00 10:40:00 [place] hayes [facility] 2021-08-16 2021-08-16 Piece Dyer Farnaz, Adc Lab Main [facility] 1.2.8 40.114 [id number] Univers 12:15:00 12:30:00 Visit [place] DanJAVIER 350.1.13.10 ity of [facility] 4.2.7.2.[place] [phone] Ky dical NAL 353 [facility] 2021-08-16 2021-08-16 Outpatient R [facility] [id number] Univers 12:15:00 12:15:00 [place] perez o [facility] 2021-08-16 2021-08-16 Outpatient R [facility] [id number] Univers 12:15:00 12:15:00 [place] perez o [facility] 2021-08-16 2021-08-16 Orders Doctor JOHANN 1.2.840.114 [id number] Univers 00:00:00 00:00:00 Only Unassigned, MIKE 350.1.13.10 [facility] 4.2.7.2.686 Babak as [phone] [address] 2021-08-16 2021-08-16 Telephone [facility] 1.2.336.661 [id number] Univers 00:00:00 00:00:00 [place] ARANDA 350.1.13.10 ity of [facility] 4.2.7.2.[place] [id number] Ky dical NAL 059 [facility] 2021-08-02 2021-08-02 Piece Dyer Farnaz, Adc Lab Main [facility] 1.2.8 40.114 [id number] Univers 09:00:00 09:15:00 Visit [place] DanJAVIER 350.1.13.10 ity of [facility] 4.2.7.2.[place] [phone] Ky dical NAL 353 [facility] 2021-08-02 2021-08-02 Outpatient R [facility] [id number] [facility] [place] 09:00:00 09:00:00 ROGERZAHEER tylery o f [facility] 2021-08-02 2021-08-02 Outpatient R SY [facility] [id number] [facility] [place] 09:00:00 09:00:00 ROGERZAHEER tylery o f [facility] 2021-08-02 2021-08-02 Orders Doctor JOHANN 1.2.840.114 [id number] Univers 00:00:00 00:00:00 Only Unassigned, MIKE 350.1.13.10 [facility] 4.2.7.2.686 Babak as [phone] [address] 2021-08-02 2021-08-02 [facility] 1.2.873.483 [id number] [facility] [place] 00:00:00 00:00:00 [place] ARANDA 350.1.13.10 ity of [place] 4.2.7.2.[place] [phone] Ky dical NAL 059 [facility] 2021-07-10 2021-07-10 Refill [facility] 1.2.840.114 [id number] Univers 00:00:00 00:00:00 [place] GRAYSONTON 350.1.13.10 ity of [facility] 4.2.7.2.[place] [phone] Ky dical NAL 059 [facility] 2021-07-05 2021-07-05 Piece Dyer Farnaz, Adc Lab Main [facility] 1.2.8 40.114 [id number] Univers 09:30:00 09:45:00 Visit Sy [place] ARANDA 350.1.13.10 ity of [facility] 4.2.7.2.[place] [phone] Ky dical NAL 353 [facility] 2021-07-05 2021-07-05 Outpatient R SY [facility] [id number] [facility] [place] 09:30:00 09:30:00 [place] scotty o f [facility] 2021-07-05 2021-07-05 [facility] [id number] [facility] [place] 09:30:00 09:30:00 [place] hayes [facility] 2021-07-05 2021-07-05 Telephone [facility] 1.2.685.593 [id number] Univers 00:00:00 00:00:00 [place] ARANDA 350.1.13.10 ity of [place] 4.[place].2.[place] [phone] [facility] 059 [facility] 2021-06-15 2021-06-15 Piece Dyer Farnaz, Adc Lab Main [facility] 1.2.8 40.114 [id number] Univers 09:45:00 10:00:00 Visit Sy [place] ARANDA 350.1.13.10 ity of [place] 4.2.7.2.[place] [phone] [facility] 353 [facility] 2021-06-15 2021-06-15 Outpatient R [facility] [id number] Univers 09:45:00 09:23:22 ROGERZAHEER ana o [facility] 2021-06-15 2021-06-15 Outpatient R [facility] [id number] Univers 09:45:00 09:23:22 ROGERZAHEER tylery o [facility] 2021-06-15 2021-06-15 Orders Doctor JOHANN 1.2.840.114 [id number] Univers 00:00:00 00:00:00 Only Unassigned, MIKE 350.1.13.10 ity of [place] [facility] 4.2.7.2.686 Babak as [phone] [place] [address] [address] 2021-06-15 2021-06-15 Telephone SyYANY 1.2.948.302 [id number] Univers 00:00:00 00:00:00 [place] PEDIATRIC 350.1.13.10 [place] of [place]2.7.2.[place] [phone] [facility] [address] [facility] 2021-05-31 2021-05-31 Piece Dyer Farnaz, Adc Lab Main [facility] 1.2.8 40.114 [id number] Univers 10:45:00 11:00:00 Visit [place] Dan 350.1.13.10 ity of [place] 4.2.7.2.[place] [phone] Ky dical NAL 353 [facility] 2021-05-31 2021-05-31 Office [facility] 1.2.840.114 [id number] Univers 10:00:00 10:33:12 Visit Rogerzaheer ROSI 350.1.13.10 ity of [place] 4.2.7.2.[place] [phone] Ky dical NAL 059 [facility] 2021-05-31 2021-05-31 Outpatient R SY, [facility] [id number] Univers 10:00:00 10:33:12 QIAMERZAHEER ity o [facility] 2021-05-31 2021-05-31 Outpatient R SY, [facility] [id number] Univers 10:00:00 10:00:00 [place] scotty o [facility] 2021-05-31 2021-05-31 Telephone [facility] 1.2.205.573 [id number] Univers 00:00:00 00:00:00 Rogerzaheer ROSI 350.1.13.10 ity of [place] 4.2.7.2.[place] [phone] Ky dical NAL 9 [facility] 2021-05-26 2021-05-26 Emergency X JAKE, K [facility] ERT [id number] Univers 17:30:00 20:34:00 ity of [facility] 2021-05-26 2021-05-26 Emergency Jake, K [facility] 1.2.840.114 [id number] Univers 17:30:00 20:34:00 Myah ARANDA 350.1.13.10 i ty of [facility] 4.2.7.2.686 [place] C[place] [id number] [facility] 084 [place] 2021-05-26 2021-05-26 Outpatient R SY, [facility] [id number] Univers 10:20:00 10:20:00 ROGERJUN ity o f [facility] 2021-05-26 2021-05-26 Outpatient R SY, [facility] [id number] Univers 10:20:00 10:20:00 [place] perez o abigail [facility] 2021-05-10 2021-05-10 Piece Dyer Farnaz, Andre Lab Main [facility] 1.2.8 40.114 [id number] Univers 08:15:00 08:30:00 Visit [place] DanTON 350.1.13.10 ity of [place] 4.2.7.2.[place] [phone] Ky dickirk NAL 353 [facility] 2021-05-10 2021-05-10 Outpatient R SY, [facility] [id number] Univers 08:15:00 08:15:00 [place] perez o [facility] 2021-05-10 2021-05-10 Outpatient R SY, [facility] [id number] Univers 08:15:00 08:15:00 [place] perez o abigail [facility] 2021-05-10 2021-05-10 Telephone [facility] 1.2.213.175 [id number] Univers 00:00:00 00:00:00 [place] KENANTON 350.1.13.10 ity of [place] 4.2.7.2.[place] [phone] Ky dical NAL [address] [place] [address] 2021-05-10 2021-05-10 Telephone [facility] 1.2.563.390 [id number] Univers 00:00:00 00:00:00 Rogerzaheer [place] 350.1.13.10 ity of [place] 4.2.7.2.[place] [phone] Ky dical NAL [address] [place] [address] 2021-05-09 2021-05-09 Refill [facility] 1.2.840.114 [id number] Univers 00:00:00 00:00:00 Qiamerzaheer [place] 350.1.13.10 ity of [place] 4.2.7.2.[place] [id number] Ky dical NAL [address] [place] [address] 2021-05-04 2021-05-04 Refill [facility] 1.2.840.114 [id number] Univers 00:00:00 00:00:00 Qiangjun [place] 350.1.13.10 ity of [facility] 4.2.7.2.[place] [id number] Ky dical NAL 9 [facility] 2021-04-28 2021-04-28 Outpatient R HIMA [facility] [id number] Univers 08:40:00 09:19:00 WAYNE ity [facility] 2021-04-28 2021-04-28 Office [facility] 1.2.840.114 [id number] Univers 08:40:00 09:19:00 Visit Wayne ROSI 350.1.13.10 i ty of [facility] 4.2.7.2.686 [place] [phone] Ky dicne NAL [address] [place] [address] 2021-04-28 2021-04-28 [facility] [id number] Univers 08:40:00 09:19:00 WAYNE ity [facility] 2021-04-28 2021-04-28 Piece Dyer Farnaz, Adc Lab Main [facility] 1.2.8 40.114 [id number] Univers 08:00:00 08:15:00 Visit [place] Dan 350.1.13.10 ity of [facility] 4.2.7.2.[place] [phone] [address] 2021-04-27 2021-04-27 Piece Dyer Farnaz, Adc Lab Main [facility] 1.2.8 40.114 [id number] Univers 10:45:00 11:00:00 Visit [place] Dan 350.1.13.10 ity of [place] 4.2.7.2.[place] [phone] Ky dical NAL 353 [facility] 2021-04-27 2021-04-27 Outpatient R SY [facility] [id number] Univers 10:45:00 10:45:00 [place] perez o f [facility] 2021-04-27 2021-04-27 Outpatient R SY, [facility] [id number] Univers 10:45:00 10:45:00 [place] perez o f [facility] 2021-04-27 2021-04-27 Telephone YANY Dan 1.2.327.849 [id number] Univers 00:00:00 00:00:00 [place] PEDIATRIC 350.1.13.10 [place] of [place].2.[place] [phone] [facility] PRIMARY 059 [facility] 2021-04-25 2021-04-25 Outpatient R HIMA [facility] [id number] Univers 10:20:00 10:20:00 WAYNE ity [facility] 2021-04-25 2021-04-25 Outpatient R HIMA [facility] [id number] Univers 10:20:00 10:20:00 WAYNE ity [facility] 2021-04-12 2021-04-12 Piece Dyer Farnaz, Adc Lab Main [facility] 1.2.8 40.114 [id number] Univers 09:30:00 09:45:00 Visit Sy [place] ARANDA 350.1.13.10 ity of [place] 4.2.7.2.[place] [id number] Ky dical [address] 2021-04-12 2021-04-12 [facility] [id number] Univers 09:30:00 09:30:00 ROGERZAHEER ana o [facility] 2021-04-12 2021-04-12 [facility] [id number] Univers 09:30:00 09:30:00 [place] perez o f [facility] 2021-04-12 2021-04-12 Orders Doctor JOHANN 1.2.840.114 [id number] Univers 00:00:00 00:00:00 Only Unassigned, MIKE 350.1.13.10 ity of [place] [facility] 4.2.7.2.686 Babak as [phone] [facility] [address] 2021-04-12 2021-04-12 Telephone [facility] 1.2.912.860 [id number] Univers 00:00:00 00:00:00 [place] ARANDA 350.1.13.10 ity of [place] 4.2.7.2.[place] [phone] Ky dical NAL 059 [facility] 2021-03-29 2021-03-29 Outpatient R SY, [facility] [id number] Univers 11:20:00 11:20:58 [place] scotty o f [facility] 2021-03-29 2021-03-29 Office Sy, [facility] 1.2.840.114 [id number] Univers 11:20:00 11:20:58 Visit Catrinamerzaheer ROSI 350.1.13.10 ity of [facility] 4.2.7.2.[place] [id number] Ky dical NAL 059 [facility] 2021-03-28 2021-03-28 Piece Dyer Farnaz, Adc Lab Main [facility] 1.2.8 40.114 [id number] Univers 12:13:20 12:28:20 Visit [place] Dan ROSI 350.1.13.10 ity of [facility] 4.2.7.2.[place] [id number] Ky dical NAL 353 [facility] 2021-03-28 2021-03-28 Outpatient R [facility] [id number] Univers 12:15:00 12:15:00 [place] perez o [facility] 2021-03-28 2021-03-28 Outpatient R SY, [facility] [id number] Univers 12:15:00 12:15:00 [place] perez o f [facility] 2021-03-28 2021-03-28 Orders Doctor WILLS 1.2.840.114 [id number] Univers 00:00:00 00:00:00 Only Unassigned, MIKE 350.1.13.10 ity of [place] [facility] 4.2.7.2.686 Babak as [id number] [address] 2021-03-28 2021-03-28 Telephone [facility] 1.2.492.046 [id number] Univers 00:00:00 00:00:00 Catrinamerzaheer GRAYSONJAVIER 350.1.13.10 ity of [place] 4.2.7.2.[place] [id number] Ky dical NAL 059 [facility] 2021-03-28 2021-03-28 [facility]ill [facility] 1.2.840.114 [id number] Univers 00:00:00 00:00:00 [place] 350.1.13.10 ity of [place] 4.2.7.2.[place] [phone] Ky dical NAL 059 [facility] 2021-03-20 2021-03-20 Outpatient R SY, [facility] [id number] Univers 13:45:00 13:45:00 [place] scotty o f [facility] 2021-03-20 2021-03-20 Outpatient R SY, [facility] [id number] Univers 13:45:00 13:45:00 [place] perez o f [facility] 2021-03-20 2021-03-20 Piece Dyer Farnaz, Adc Lab Main [facility] 1.2.8 40.114 [id number] Univers 11:58:29 12:13:29 Visit Sy [place] ARANDA 350.1.13.10 ity of [place] 4.2.7.2.[place] [phone] Ky dical NAL 353 [facility] 2021-03-20 2021-03-20 Telephone [facility] 1.2.837.496 [id number] Univers 00:00:00 00:00:00 [place] 350.1.13.10 ity of [place] 4.2.7.2.[place] [id number] Ky dical NAL 059 [facility] 2021-03-15 2021-03-15 Outpatient Joan VILLA [facility] [id number] [facility] [place] 09:15:00 09:15:00 JOSE itjake [facility] 2021-03-15 2021-03-15 Outpatient Joan VILLA [facility] [id number] Univers 09:15:00 09:15:00 JOSE itjake [facility] 2021-03-15 2021-03-15 Piece Dyer Farnaz, Adc Lab Main [facility] 1.2.8 40.114 [id number] Univers 08:14:37 08:29:37 Visit Jose VillaTON 350.1.13. 10 ity of [place] 4.2.7.2.[place] [phone] Ky dical NAL [address] [facility] 2021-03-15 2021-03-15 Orders Doctor JOHANN 1.2.840.114 [id number] Univers 00:00:00 00:00:00 Only Unassigned, MIKE 350.1.13.10 ity of [place] [facility] 4.2.7.2.686 Babak as [id number] [facility] [address] 2021-03-15 2021-03-15 Telephone [facility] 1.2.105.776 [id number] Univers 00:00:00 00:00:00 [place] ARANDA 350.1.13.10 ity of [place] 4.2.7.2.[place] [id number] Ky dical NAL [address] [facility] 2021-03-07 2021-03-07 Transition ALESIA Gamez 1.2.840.114 [id number] Univers 00:00:00 00:00:00 of Care Georgie SAMANIEGO 350.1.13.10 it y of [place] 4.2.7.2.[place] [id number] [facility] [address] 2021-03-01 2021-03-06 Inpatient X FABIOLA [facility] BERENICE [id number] Univers 11:31:00 15:17:00 CALEB perez of [facility] 2021-03-01 2021-03-06 [facility] Jamie Deng [facility] 1.2.840.1 14 [id number] Univers 11:31:00 15:17:00 Encounter Caleb Rodrigues 350.1.13.10 ity of [place] 4.2.7.2.[place] [id number] [facility] [address] 2021-03-01 2021-03-01 Outpatient X FABIOLA [facility] BERENICE [id number] Univers 11:31:00 11:31:00 CALEB perez of [facility] 2021-02-27 2021-02-27 [facility] [id number] Univers 11:20:00 11:44:55 [place] perez o f [facility] 2021-02-27 2021-02-27 Outpatient R SY, [facility] [id number] Univers 11:20:00 11:44:55 [place] hayes [facility] 2021-02-27 2021-02-27 Outpatient R SY, [facility] [id number] Univers 11:20:00 11:44:55 [place] jimenes [facility] 2021-02-27 2021-02-27 Outpatient R SY, [facility] [id number] Univers 11:20:00 11:44:55 [place] jimenes [facility] 2021-02-27 2021-02-27 Office Sy, [facility] 1.2.840.114 [id number] Univers 10:54:32 11:44:55 Visit [place] ROSI 350.1.13.10 ity of [facility] 4.2.7.2.686 [place] [id number] Ky dical NAL 059 [facility] 2021-02-27 2021-02-27 Outpatient R SY, [facility] [id number] Univers 10:30:00 10:30:00 [place] jimenes [facility] 2021-02-27 2021-02-27 Outpatient R SY, [facility] [id number] Univers 10:30:00 10:30:00 [place] jimenes [facility] 2021-02-27 2021-02-27 Piece Dyer Farnaz, Andre Lab Main [facility] 1.2.8 40.114 [id number] Univers 09:52:58 10:07:58 Visit [place] Dan ROSI 350.1.13.10 ity of [facility] 4.2.7.2.[place] [phone] Me dical NAL 353 [facility] 2021-02-27 2021-02-27 Orders Doctor JOHANN 1.2.840.114 [id number] Univers 00:00:00 00:00:00 Only Unassigned, MIKE 350.1.13.10 ity of [place] [facility] 4.2.7.2.686 Babak as [id number] [address] 2021-02-27 2021-02-27 Telephone Sy, [facility] 1.2.605.314 [id number] Univers 00:00:00 00:00:00 Qiamerjun [place] 350.1.13.10 ity of [place] 4.2.7.2.[place] [id number] Ky dical NAL 059 [facility] 2021-02-24 2021-02-24 Outpatient R SY, [facility] [id number] Univers 10:45:00 10:45:00 QIANGJUN ity o f [facility] 2021-02-24 2021-02-24 Outpatient R SY, [facility] [id number] Univers 10:45:00 10:45:00 QIANGJUN ity o f [facility] 2021-02-24 2021-02-24 Piece Dyer Farnaz, Adc Lab Main [facility] 1.2.8 40.114 [id number] Univers 09:17:46 09:32:46 Visit [place] DanTON 350.1.13.10 ity of [place] 4.2.7.2.[place] [phone] Ky dical NAL 353 [facility] 2021-02-24 2021-02-24 [facility] 1.2.669.608 [id number] Univers 00:00:00 00:00:00 Rogerjun [place] 350.1.13.10 ity of [place] 4.2.7.2.[place] [id number] Ky dical NAL 059 [facility] 2021-02-24 2021-02-24 [facility] 1.2.145.038 [id number] Univers 00:00:00 00:00:00 Qiamerjun [place] 350.1.13.10 ity of [place] 4.2.7.2.[place] [id number] Ky dical NAL 059 [facility] 2021-02-24 2021-02-24 Telephone [facility] 1.2.515.377 [id number] Univers 00:00:00 00:00:00 Qiamerjun [place] 350.1.13.10 ity of [place] 4.2.7.2.[place] [id number] Ky dical NAL 059 [facility] 2021-02-15 2021-02-15 Piece Dyer Farnaz, Andre Lab Main [facility] 1.2.8 40.114 [id number] Univers 09:47:39 10:02:39 Visit Sy [place] ARANDA 350.1.13.10 ity [facility] 4.2.7.2.686 [place] [phone] Ky dical NAL 353 [facility] 2021-02-15 2021-02-15 Outpatient R [facility] [id number] Univers 09:45:00 09:45:00 QIAJUAN ity o f [facility] 2021-02-15 2021-02-15 [facility] [id number] Univers 09:45:00 09:45:00 ROGERZAHEER ity o f [facility] 2021-02-15 2021-02-15 Orders Doctor JOHANN 1.2.840.114 [id number] Univers 00:00:00 00:00:00 Only Unassigned, MIKE 350.1.13.10 ity of [place] [facility] 4.2.7.2.686 Babak as [phone] [facility] [address] [place] 2021-02-15 2021-02-15 Telephone [facility] 1.2.230.160 [id number] Univers 00:00:00 00:00:00 [place] ARANDA [id number] ity [place] [phone] [place] 059 [facility] 2021-02-10 2021-02-10 Transition Franco ALESIA 1.2.840.114 [id number] Univers 00:00:00 00:00:00 of Care Georgie MARIAY 350.1.13.10 it [place] [phone] [facility] [address] [place] 2021-02-04 2021-02-09 Inpatient X WALLY [facility] [id number] Univers 20:57:00 13:26:00 JENNIFER ity of [facility] 2021-02-04 2021-02-09 Hospital Jamie Deng [facility] 1.2.840.1 14 [id number] Univers 20:57:00 13:26:00 Encounter Wilber Flowers 350.1.13.10 ity of [place] Jenniferdanii FERRELL 4.2.7.2.686 [facility] [phone] [facility] [address] 2021-01-02 2021-01-02 Piece Dyer Farnaz, Andre Lab Main [facility] 1.2.8 40.114 [id number] Univers 11:35:12 11:50:12 Visit [place] Dan 350.1.13.10 ity [place] [phone] [place] 353 [facility] 2021-01-02 2021-01-02 Outpatient [facility] [id number] Univers 11:45:00 11:45:00 [place] perez o [facility] 2021-01-02 2021-01-02 [facility] [id number] Univers 11:45:00 11:45:00 [place] perez o [facility] 2021-01-02 2021-01-02 Orders Doctor JOHANN 1.2.840.114 [id number] Univers 00:00:00 00:00:00 Only Unassigned, MIKE 350.1.13.10 ity of [place] [facility] 4.2.7.2.686 Babak as [phone] [facility] [address] 2021-01-02 2021-01-02 Telephone [facility] 1.2.288.106 [id number] Univers 00:00:00 00:00:00 [place] Aranda [id number] [place] [phone] [place] 059 [facility] 2021-01-02 2021-01-02 Refill [facility] 1.2.840.114 [id number] Univers 00:00:00 00:00:00 [place] Aranda [id number] [place] [phone] [place] 059 [facility] 2020-12-07 2020-12-07 Piece Dyer Farnaz, Andre Lab Main [facility] 1.2.8 40.114 [id number] Univers 08:05:37 08:20:37 Visit [place] Dan 350.1.13.10 [phone] [place] 353 [facility] 2020-12-07 2020-12-07 Outpatient R SY, [facility] [id number] Univers 08:00:00 08:00:00 [place] ity o [facility] 2020-12-07 2020-12-07 Outpatient R SY, [facility] [id number] Univers 08:00:00 08:00:00 [place] perez o [facility] 2020-12-07 2020-12-07 [facility] [id number] Univers 00:00:00 00:00:00 [place] Aranda 350.1.13.10 [phone] [place] 9 [facility] 2020-11-23 2020-11-23 Outpatient R SY, [facility] [id number] Univers 13:37:45 23:59:00 [place] ity o [facility] 2020-11-23 2020-11-23 Outpatient R SY, [facility] [id number] Univers 13:37:45 23:59:00 [place] ity o [facility] 2020-11-14 2020-11-14 Outpatient R SY, [facility] [id number] Univers 13:40:00 13:40:00 [place] ity o [facility] 2020-10-12 2020-10-12 Outpatient R SY, [facility] [id number] Univers 08:00:00 08:00:00 [place] ity o [facility] 2020-09-27 2020-09-27 Outpatient R SY, [facility] [id number] Univers 13:00:00 13:00:00 JAMACIA jimenes [facility] 2020-09-22 2020-09-22 Outpatient R SY, [facility] [id number] Univers 09:30:00 09:30:00 [place] jimenes [facility] 2020-09-07 2020-09-07 Outpatient R SY, [facility] [id number] Univers 08:45:00 08:45:00 AJMAICA jimenes [facility] 2020-08-19 2020-08-19 Outpatient R SY, [facility] [id number] Univers 08:45:00 08:45:00 [place] jimenes [facility] 2020-08-15 2020-08-15 Outpatient R SY, [facility] [id number] Univers 10:45:00 10:45:00 [place] jimenes [facility] 2020-08-08 2020-08-08 Outpatient R SY, [facility] [id number] Univers 11:45:00 11:45:00 [place] jimenes [facility] 2020-08-08 2020-08-08 Piece Dyer Andre Osei [facility] 1.2.840.114 [id number] 11:14:44 11:29:44 Visit Lab Main Rosi 350.1.13.10 [place] 4.2.7.2.686 Professio [phone] [facility] 353 [facility] 2020-08-08 2020-08-08 Orders Doctor JOHANN 1.2.840.114 [id number] 00:00:00 00:00:00 Only Unassigned, MIKE 350.1.13.10 [place] [facility] 4.2.7.2.686 [id number] 009 2020-08-08 2020-08-08 Telephone [facility] [id number] 00:00:00 00:00:00 Rogerzaheer Rosi 350.1.13.10 [place] 4.2.7.2.686 Professio [phone] nal 059 [facility] 2020-07-25 2020-07-25 Telephone [facility] [id number] 00:00:00 00:00:00 Qiajuan [place] 350.1.13.10 [place] 4.2.7.2.686 Professio [phone] nal 059 [facility] 2020-07-20 2020-07-20 Outpatient R [facility] [id number] Univers 11:45:00 11:45:00 [place] scotty o f [facility] 2020-07-20 2020-07-20 Piece Dyer Farnaz, [facility] 1.2.840.114 [id number] 10:37:03 10:52:03 Visit Lab Main [place] 350.1.13.10 [place] 4.2.7.2.686 Professio [phone] [address] 2020-07-20 2020-07-20 Orders Doctor JOHANN 1.2.840.114 [id number] 00:00:00 00:00:00 Only Unassigned, MIKE 350.1.13.10 [place] [facility] 4.2.7.2.[id number] [facility] 2020-07-20 2020-07-20 Telephone [facility] [id number] [id number] 00:00:00 00:00:00 Catrinamerjun [place] 350.1.13.10 [place] 4.2.7.2.686 Professio [phone] [address] 2020-07-13 2020-07-13 Outpatient R [facility] [id number] Univers 10:15:00 10:15:00 ROGERZAHEER ana o [facility] 2020-07-13 2020-07-13 Piece Dyer Farnaz, [facility] 1.2.840.114 [id number] 09:23:20 09:38:20 Visit Lab Main [place] 350.1.13.10 [place] 4.2.7.2.686 Professio [phone] [address] 2020-07-13 2020-07-13 Telephone [facility] [id number] 00:00:00 00:00:00 Qiamerzaheer [place] 350.1.13.10 [place] 4.2.7.2.686 Professio [phone] [facility] 059 [facility] 2020-06-19 2020-06-19 Telephone [facility] [id number] 00:00:00 00:00:00 [place] 350.1.13.10 [place] 4.2.7.2.686 Professio [phone] [facility] [address] [place] [address] 2020-06-17 2020-06-17 Piece Dyer Farnaz [facility] 12.840.114 [id number] 09:22:55 09:37:55 Visit Lab Main [place] 350.1.13.10 [place] 4.2.7.2.686 Professio [phone] [facility] 353 [facility] 2020-06-17 2020-06-17 [facility] [id number] Univers 09:30:00 09:30:00 [place] perez o [facility] 2020-06-08 2020-06-08 [address]phone [id number] 00:00:00 00:00:00 [place] 350.1.13.10 [place] 4.2.7.2.686 Professio [phone] [address] 2020-06-07 2020-06-07 Piece Dyer Farnaz [facility] 12.840.114 [id number] 08:57:47 09:12:47 Visit Lab Main [place] 350.1.13.10 [place] 4.2.7.2.686 Professio [phone] [facility] 353 [facility] 2020-06-07 2020-06-07 [facility] [id number] Univers 09:00:00 09:00:00 [place] perez o [facility] 2020-05-23 2020-05-23 [facility] [id number] Univers 09:15:00 09:15:00 [place] ity o [facility] 2020-05-16 2020-05-16 [facility] [id number] Univers 11:30:00 11:30:00 [place] ity o [facility] 2020-05-162020-05-16 Piece Dyer Farnaz, [facility] 1.2.840.114 [id number] 11:09:17 11:24:17 Visit Lab Main [place] 350.1.13.10 [place] 4.2.7.2.686 Professio [phone] [facility] 353 [facility] 2020-05-16 2020-05-16 Orders Doctor JOHANN 1.2.840.114 [id number] 00:00:00 00:00:00 Only Unassigned, MIKE 350.1.13.10 [place] [facility] 4.2.7.2.686 [id number] 009 2020-05-16 2020-05-16 Telephone [facility] [id number] 00:00:00 00:00:00 Rogerzaheer [place] 350.1.13.10 [place] 4.2.7.2.686 Professio [phone] [address] 2020-05-11 2020-05-11 Piece Dyer Farnaz, [facility] 1.2.840.114 [id number] 09:25:07 09:40:07 Visit Lab Main [place] 350.1.13.10 [place] 4.2.7.2.686 Professio [phone] [address] 2020-05-11 2020-05-11 [facility] [id number] Univers 09:30:00 09:30:00 SENDIL ity of [facility] 2020-05-11 2020-05-11 Telephone [facility] [id number] 00:00:00 00:00:00 [place] 350.1.13.10 [place] 4.2.7.2.686 Professio [phone] [address] 2020-05-11 2020-05-11 Telephone [facility] 1.2.332.644 [id number] 00:00:00 00:00:00 Qiajuan [place] 350.1.13.10 [place] 4.2.7.2.686 Professio [phone] [address] 2020-05-04 2020-05-04 Telephone [facility] [id number] [id number] 00:00:00 00:00:00 [place] 350.1.13.10 [place] 4.2.7.2.686 Professio [phone] nal 059 [facility] 2020-05-03 2020-05-03 Outpatient R [facility] [id number] [facility] 11:30:00 11:30:00 ROGERZAHEER ana o f [facility] 2020-05-03 2020-05-03 Piece Dyer Farnaz, [facility] 1.2.840.114 [id number] 10:05:00 10:20:00 Visit Lab Main [place] 350.1.13.10 [place] 4.2.7.2.686 Professio [phone] [address] 2020-05-03 2020-05-03 Orders Doctor JOHANN 1.2.840.114 [id number] 00:00:00 00:00:00 Only Unassigned, MIKE 350.1.13.10 [place] [facility] [id number] [id number] 2020-04-27 2020-04-27 [facility] 1.2.840.114 [id number] 08:24:03 08:39:03 Visit Lab Main [place] 350.1.13.10 [place] 4.2.7.2.686 Professio [phone] [address] 2020-04-27 2020-04-27 Outpatient R [facility] [id number] [facility] 08:30:00 08:30:00 [place] perez o [facility] 2020-04-27 2020-04-27 [facility] [id number] 00:00:00 00:00:00 [place] 350.1.13.10 [place] 4.2.7.2.686 Professio [phone] [facility] 059 [facility] 2020-04-20 2020-04-20 Refill [facility] 1.2.840.114 [id number] 00:00:00 00:00:00 [place] 350.1.13.10 [place] 4.2.7.2.686 Professio [phone] nal 059 [facility] 2020-04-01 2020-04-01 Outpatient R IZQUIERDO, [facility] [id number] Univers 10:15:00 10:15:00 NICK perez [facility] 2020-03-29 2020-03-29 Office Sy, [facility] 1.2.840.114 [id number] 14:32:40 15:25:41 Visit [place] Aranda 350.1.13.10 [place] 4.2.7.2.686 Professio [phone] nal 059 [facility] 2020-03-29 2020-03-29 Outpatient R SY, [facility] [id number] Univers 14:40:00 14:40:00 [place] jimenes [facility] 2020-03-22 2020-03-22 Outpatient R SY, [facility] [id number] Univers 15:30:00 15:30:00 [place] jimenes [facility] 2020-03-15 2020-03-15 Outpatient R SY, [facility] [id number] Univers 11:15:00 11:15:00 [place] jimenes [facility] 2020-02-24 2020-02-24 Outpatient R SY, [facility] [id number] Univers 08:40:00 08:40:00 [place] jimenes [facility] 2020-02-17 2020-02-17 Outpatient R SY, [facility] [id number] Univers 09:15:00 09:15:00 [place] jimenes [facility] 2020-01-11 2020-01-11 Outpatient R SY, [facility] [id number] Univers 12:45:00 12:45:00 [place] jimenes [facility] 2019-12-17 2019-12-17 Outpatient R SY, [facility] [id number] Univers 11:00:00 11:00:00 [place] jimenes [facility] 2019-11-26 2019-11-26 Outpatient R YS, [facility] [id number] Univers 12:45:00 12:45:00 [place] perez o [facility] 2019-10-30 2019-10-30 Outpatient R RADIOLOGY [facility] [id number] Univers 00:00:00 00:00:00 [facility] 2019-10-20 2019-10-20 Outpatient R ALICJA MCDERMOTT [facility] [id number] Univers 09:30:00 09:30:00 [place] [facility] 2019-09-30 2019-09-30 Outpatient R SY, [facility] [id number] Univers 08:30:00 08:30:00 [place] ity o f [facility] 2019-09-08 2019-09-08 Outpatient R SY, [facility] [id number] Univers 15:20:00 15:20:00 QIAJUAN ity o [facility] 2019-09-03 2019-09-03 Outpatient R SY, [facility] [id number] Univers 09:00:00 09:00:00 [place] perez o [facility] 2019-07-24 2019-07-24 Outpatient R SY, [facility] [id number] Univers 11:45:00 11:45:00 [place] perez o [facility] 2019-06-22 2019-06-22 Outpatient R SY, [facility] [id number] Univers 13:30:00 13:30:00 [place] perez [facility] Results Test Description Test Time [...] indications. Lab Interpretation (test code Abnormal = 04011-1) [facility] / [id number] 15:08:40 Test Item Value Reference Range Interpretation Comments PROTIME PATIENT (test 24.8 See_Comment H [Auto mated message] code = 5964-2) The system [employer] generated this result transmitted ref erence range: 12.0 - 1 4.7 Seconds. The reference range was not used to int erpret this result as normal/abnormal . INR (test code = 6301-6) 2.3 Nor mal INR <1.1; Warfarin Therap eutic range 2.0 to 3. 0 or 2.5 to 3.5, dep ending upon the indica tions. Lab Interpretation (test Abnormal code = 71613-6) [facility] / [id number] 15:08:40 Test Item Value Reference Range Interpretation Comments PROTIME PATIENT (test 24.8 See_Comment H [Auto mated message] code = 5964-2) The system [employer] generated this result transmitted ref erence range: 12.0 - 1 4.7 Seconds. The reference range was not used to int erpret this result as normal/abnormal . INR (test code = 6301-6) 2.3 Nor mal INR <1.1; Warfarin Therap eutic range 2.0 to 3. 0 or 2.5 to 3.5, dep ending upon the indica tions. Lab Interpretation (test Abnormal code = 47964-3) [facility] / [id number] 18:32:10 Test Item Value Reference Range Interpretation Comments PROTIME PATIENT (test 24.4 See_Comment H [Auto mated message] code = 5964-2) The system [employer] generated this result transmitted ref erence range: 12.0 - 1 4.7 Seconds. The reference range was not used to int erpret this result as normal/abnormal . INR (test code = 6301-6) 2.2 Nor mal INR <1.1; Warfarin Therap eutic range 2.0 to 3. 0 or 2.5 to 3.5, dep ending upon the indica tions. Lab Interpretation (test Abnormal code = 04598-4) [facility]2022-06-11 22:45:29 Test Item Value Reference Range Interpretation Comments Height (test code = 63 in 0880873277) Weight (test code = 102 lbs 8488794484) Systolic BP (test 123 mmHg code = 9557805525) Diastolic BP (test 64 mmHg code = 5635706575) Heart Rate (test code 61 bpm = 3896835672) LVOT peak amrita (test 114.0 cm/s code = 1661303219) LVOT mn grad (test 3.0 mmHg code = 4787951764) Aortic valve mean 209.0 cm/s velocity (test code = 2668090085) Ao peak amrita (test 333.0 cm/s code = 1525577577) Ao VTI (test code = 71.7 cm 6928102096) AV LVOT peak gradient 5.2 mmHg (test code = 8365945333) LVOT peak VTI (test 29.0 cm code = 3842398981) AV Doppler amrita index 0.34 ratio VTI (test code = 9055168083) LV V1 mean (test code 82.60 cm/s = 6480782424) Ao max PG (test code 44.40 mm[Hg] = 7131404795) AV peak gradient 44.4 mmHg (test code = 5951138269) AV mean gradient 21.0 mmHg (test code = 0724870906) Radiology Study observation (narrative) (test code = 68515-4) ROBERT (test code = ROBERT) ?Aortic?Valve: Mechanical [...] captured. The probe was inserted by the crime laboratory analyst. Probe in 0930. Probe out 0940. Moderate sedation was given. 4% Lidocaine was used for local oropharyngeal anesthesia. 1 mg of midazolam and 50 mcg of Fentanyl were administered during the study. There were no complications during the procedure. Based on abnormal findings of 2D echocardiogram, 3D was performed on an acquisition scanner for further assessment of the aortic valve. , RN [facility] (NA, K, CL, CO2, GLUCOSE, BUN, CREATININE, CA)2022-06-11 09:30:25 Test Item Value Reference Range Interpretation Comments NA (test code = 137 mmol/L 135-145 8295882703) K (test code = 4.3 mmol/L 3.5-5.0 8336474648) CL (test code = 104 mmol/L 98-108 5194441082) CO2 TOTAL (test code = 30 mmol/L 23-31 0468850487) AGAP (test code = 3 2-16 3366449064) BUN (test code = 19 mg/dL 7-23 4376385311) GLUCOSE (test code = 102 mg/dL 70-110 9969748706) CREATININE (test code = 0.93 mg/dL 0.50-1.04 2608729936) CALCIUM (test code = 8.5 mg/dL 8.6-10.6 L 4986746128) eGFR (test code = 59.8 mL/min/1.73m2 7302560533) ROBERT (test code = ROBERT) Association of [...] tests). Lab Interpretation Abnormal (test code = 45603-1) [facility]2023-[facility]-27 09:30:25 Test Item Value Reference Range Interpretation Comments MAGNESIUM (test code = 2791168200) 2.1 mg/dL 1.7-2.4 Lab Interpretation (test code = Normal 24454-7) [facility] / [id number] 09:18:08 Test Item Value Reference Range Interpretation Comments PROTIME PATIENT (test 19.8 See_Comment H [Auto mated message] code = 5964-2) The system [employer] generated this result transmitted ref erence range: 10.1 - 1 2.6 Seconds. The reference range was not used to int erpret this result as normal/abnormal . INR (test code = 6301-6) 1.8 Nor mal INR <1.1; Warfarin Therap eutic range 2.0 to 3. 0 or 2.5 to 3.5, dep ending upon the indica tions. Lab Interpretation (test Abnormal code = 09367-3) [facility]2023-[facility]27 09:18:08 Test Item Value Reference Range Interpretation Comments APTT Patient (test code 89 See_Comment H [Au tomated message] = 9833-2) The system [employer] generated this result transmitted ref erence range: 26 - 36 Seconds. The reference range was not used to int erpret this result as normal/abnormal . Lab Interpretation (test Abnormal code = 79543-4) [facility]2023-[facility]-26 08:57:55 Test Item Value Reference Range Interpretation Comments MAGNESIUM (test code = 0207710554) 1.8 mg/dL 1.7-2.4 Lab Interpretation (test code = Normal 65106-8) [facility] METABOLIC PANEL (NA, K, CL, CO2, GLUCOSE, BUN, CREATININE, CA)2022-06-10 08:57:55 Test Item Value Reference Range Interpretation Comments NA (test code = 137 mmol/L 135-145 4481762718) K (test code = 4.0 mmol/L 3.5-5.0 5962703101) CL (test code = 100 mmol/L 98-108 4973126844) CO2 TOTAL (test code = 32 mmol/L 23-31 H 6447112641) AGAP (test code = 5 2-16 2618967331) BUN (test code = 24 mg/dL 7-23 H 2165614716) GLUCOSE (test code = 116 mg/dL 70-110 H 8295831252) CREATININE (test code = 1.00 mg/dL 0.50-1.04 7519158918) CALCIUM (test code = 9.1 mg/dL 8.6-10.6 1873168049) eGFR (test code = 55.0 mL/min/1.73m2 3437632880) ROBERT (test code = ROBERT) Association of [...] tests). Lab Interpretation Abnormal (test code = 69813-4) [facility] / [id number] 08:46:38 Test Item Value Reference Range Interpretation Comments PROTIME PATIENT (test 17.4 See_Comment H [Auto mated message] code = 5964-2) The system [employer] generated this result transmitted ref erence range: 10.1 - 1 2.6 Seconds. The reference range was not used to int erpret this result as normal/abnormal . INR (test code = 6301-6) 1.6 Nor mal INR <1.1; Warfarin Therap eutic range 2.0 to 3. 0 or 2.5 to 3.5, dep ending upon the indica tions. Lab Interpretation (test Abnormal code = 29861-3) [facility] 08:46:38 Test Item Value Reference Range Interpretation Comments APTT Patient (test code 85 See_Comment H [Au tomated message] = 3173-2) The system [employer] generated this result transmitted ref erence range: 26 - 36 Seconds. The reference range was not used to int erpret this result as normal/abnormal . Lab Interpretation (test Abnormal code = 42938-0) [facility] acute hospital WITH [id number] 08:39:15 Test Item Value Reference Range Interpretation [...] (test code = 58.1 fL 39.0-49.9 H 37078-9) RDW-CV (test code = 16.1 % 12.0-15.5 H 788-0) PLT (test code = 197 See_Comment [Automated 777-3) message] The sy stem which generated this result transmitted reference range : 166 - 358 10*3/ ?L. The reference r tali was not used to interpret this result as normal/abnormal . MPV (test code = 10.2 fL 9.5-12.9 81981-9) NRBC/100 WBC (test 0.0 See_Comment [Automat ed code = 4631535793) message] The system which generated this result transmitted reference range : 0.0 - 10.0 /100 WBCs. The refer ence range was not u sed to interpret th is result as normal/abnormal . NRBC x10^3 (test code See_Comment [Auto mated = 1279065010) message] The s ystem which generated this result transmitted reference range : 10*3/?L. The reference range was not used to interpret this result as normal/abnormal . GRAN MAT (NEUT) % 58.4 % (test code = 770-8) IMM GRAN % (test code 0.20 % = 2108524544) LYMPH % (test code = 24.2 % 736-9) MONO % (test code = 10.9 % 5905-5) EOS % (test code = 5.5 % 713-8) BASO % (test code = 0.8 % 706-2) GRAN MAT x10^3(ANC) 2.77 10*3/uL 1.88-7.09 (test code = 6587765488) IMM GRAN x10^3 (test 0.00-0.06 code = 5048167173) LYMPH x10^3 (test code 1.15 10*3/uL 1.32-3.29 L = 731-0) MONO x10^3 (test code 0.52 10*3/uL 0.33-0.92 = 742-7) EOS x10^3 (test code = 0.26 10*3/uL 0.03-0.39 711-2) BASO x10^3 (test code 0.04 10*3/uL 0.01-0.07 = 704-7) Lab Interpretation Abnormal (test code = 48693-3) [facility] 10:39:27 Test Item Value Reference Range Interpretation Comments MAGNESIUM (test code = 3159257061) 1.6 mg/dL 1.7-2.4 L Lab Interpretation (test code = Abnormal 86043-9) [facility] (NA, K, CL, CO2, GLUCOSE, BUN, CREATININE, CA)2022-06-09 10:39:27 Test Item Value Reference Range Interpretation Comments NA (test code = 139 mmol/L 135-145 6277687457) K (test code = 4.1 mmol/L 3.5-5.0 2165812496) CL (test code = 96 mmol/L 98-108 L 7157943968) CO2 TOTAL (test code = 36 mmol/L 23-31 H 7718029960) AGAP (test code = 7 2-16 1146069866) BUN (test code = 27 mg/dL 7-23 H 1489157429) GLUCOSE (test code = 116 mg/dL 70-110 H 7434968157) CREATININE (test code = 1.21 mg/dL 0.50-1.04 H 9303241369) CALCIUM (test code = 9.3 mg/dL 8.6-10.6 7575110765) eGFR (test code = 44.1 mL/min/1.73m2 0754984128) ROBERT (test code = ROBERT) Association of [...] tests). Lab Interpretation Abnormal (test code = 08153-4) [facility] / [id number] 10:26:27 Test Item Value Reference Range Interpretation Comments PROTIME PATIENT (test 18.7 See_Comment H [Auto mated message] code = 5964-2) The system [employer] generated this result transmitted ref erence range: 10.1 - 1 2.6 Seconds. The reference range was not used to int erpret this result as normal/abnormal . INR (test code = 6301-6) 1.7 Nor mal INR <1.1; Warfarin Therap eutic range 2.0 to 3. 0 or 2.5 to 3.5, dep ending upon the indica tions. Lab Interpretation (test Abnormal code = 05751-6) General acute hospital WITH [id number] 10:16:07 Test Item Value Reference Range Interpretation [...] (test code = 58.8 fL 39.0-49.9 H 33772-8) RDW-CV (test code = 16.3 % 12.0-15.5 H 788-0) PLT (test code = 244 See_Comment [Automated 777-3) message] The sy stem which generated this result transmitted reference range : 166 - 358 10*3/ ?L. The reference r tali was not used to interpret this result as normal/abnormal . MPV (test code = 10.1 fL 9.5-12.9 73238-0) NRBC/100 WBC (test 0.0 See_Comment [Automat ed code = 8136476031) message] The system which generated this result transmitted reference range : 0.0 - 10.0 /100 WBCs. The refer ence range was not u sed to interpret th is result as normal/abnormal . NRBC x10^3 (test code See_Comment [Auto mated = 9357517556) message] The s ystem which generated this result transmitted reference range : 10*3/?L. The reference range was not used to interpret this result as normal/abnormal . GRAN MAT (NEUT) % 75.8 % (test code = 770-8) IMM GRAN % (test code 0.30 % = 7238236932) LYMPH % (test code = 12.5 % 736-9) MONO % (test code = 8.5 % 5905-5) EOS % (test code = 2.0 % 713-8) BASO % (test code = 0.9 % 706-2) GRAN MAT x10^3(ANC) 5.80 10*3/uL 1.88-7.09 (test code = 3200116682) IMM GRAN x10^3 (test 0.00-0.06 code = [id number]) LYMPH x10^3 (test code 0.96 10*3/uL 1.32-3.29 L = 731-0) MONO x10^3 (test code 0.65 10*3/uL 0.33-0.92 = 742-7) EOS x10^3 (test code = 0.15 10*3/uL 0.03-0.39 711-2) BASO x10^3 (test code 0.07 10*3/uL 0.01-0.07 = 704-7) Lab Interpretation Abnormal (test code = 65505-3) [facility]12:16 Test Item Value Reference Range Interpretation Comments Height (test code = 63 in [id number]) Weight (test code = 101 lbs 9163933826) Systolic BP (test code 127 mmHg = 4479348662) Diastolic BP (test code 43 mmHg = 5327403472) Heart Rate (test code = 50 bpm 9503552157) BSA (test code = 1.45 m2 7855742449) LVOT diameter (test 1.62 cm code = 0914713227) LVOT area (test code = 2.05 cm2 2725383773) Ao root diam (test code 2.34 cm = 0495670890) Aortic root (test code 2.34 cm = 0630043401) Ao root annulus (test 2.34 cm code = 4063700568) LA size (test code = 4.9 cm 3042103029) TR Peak Amrita (test code 209.0 cm/s = 7930493692) Triscuspid Valve 17.5 mmHg Regurgitation Peak Gradient (test code = 0420158133) PV REGURGITATION PEAK 8.9 mmHg GRADIENT (test code = 8307273447) PI dec slope (test code 81.30 cm/s2 = 2048449092) E wave decelartion time 0.26 s (test code = 3582042325) MV Peak A Amrita (test 58.0 cm/s code = 6936344317) MV Peak E Amrita (test 116.0 cm/s code = 6563657746) E/A ratio (test code = 2.00 ratio 7431575999) MR max PG (test code = 125.90 mm[Hg] 1271210428) MR max amrita (test code = 561.00 cm/s 0586231971) Mr max amrita (test code = 561.0 m/s 6483499443) MV Prop V (test code = 33.60 cm/s 2098356476) LAV(MOD-sp4) (test code 50.40 mL = 5622848653) MV E/e' septal (test 5.1 cm/s code = 3409585365) Tapse (test code = 1.37 cm 2461476742) LVOT stroke volume 42.60 cm3 (test code = 7080609504) LVOT peak amrita (test 96.3 cm/s code = 8631976609) LVOT mn grad (test code 1.6 mmHg = 4627815615) AV LVOT peak gradient 3.7 mmHg (test code = 0528393853) LVOT peak VTI (test 20.8 cm code = 1237310883) LV V1 mean (test code = 59.50 cm/s 3840135906) LA Volume Index (BP) 39.6 mL/m2 (test code = 8084811411) LA volume (BP) (test 57.2 mL code = 2252811107) LAV(MOD-sp2) (test code 59.90 mL = 5016345317) AV regurgitation 482.7 ms pressure 1/2 time (test code = 0206128072) AI dec slope (test code 212.30 cm/s2 = 8436885065) AI max amrita (test code = 349.90 cm/s 5271557869) AI max PG (test code = 49.00 mm[Hg] 9584853948) LVIDD (test code = 3.90 cm 7205008898) Left Ventricular End 66.7 mL Diastolic Volume by Teichholz Method (test code = 7284164) EF(Teich) (test code = 67.60 % 1517815861) FS (test code = 37 % 5271911435) EF - 2D (test code = 67.60 % 90204703) IVS (test code = 1.22 cm 3569433332) Interventricular Septum 1.22 cm Diastolic Thickness by 2D (test code = 5265935) LVPWD (test code = 1.12 cm 8416911044) PW (test code = 1.12 cm 0.6-1.7 3263652555) LVIDS (test code = 2.47 cm 9768726735) Left Ventricular End 21.6 mL Systolic Volume by Teichholz Method (test code = 3414531) Aortic valve mean 210.4 cm/s velocity (test code = 1860820009) Ao peak amrita (test code 307.4 cm/s = 6921110992) Ao VTI (test code = 68.2 cm 8361362002) AV area by cont VTI 0.6 cm2 (test code = 7882596521) AV area peak amrita (test 0.6 cm2 code = 4770011418) Ao max PG (test code = 37.80 mm[Hg] 3986469098) AV peak gradient (test 37.8 mmHg code = 4514027579) AV valve area (test 0.63 cm2 code = 4674092023) AV mean gradient (test 19.8 mmHg code = 6335339796) Radiology Study observation (narrative) (test code = 07963-1) ROBERT (test code = ROBERT) ?Left?Ventricle: Left [...] 2D, color flow Doppler and spectral Doppler. [facility] [id number] 05:06:36 Test Item Value Reference Range Interpretation [...] not appl icable for dialysis patien ts 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 ID - PIDYLAN [id number] 05:06:35 Test Item Value Reference Range Interpretation Comments MAGNESIUM (BEAKER) 1.7 mg/dL 1.6-2.6 Specimen slightly (test code = 627) hemolyzed 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 ID - ARMAND LPROTHROMBIN TIME/[id number] 04:57:12 Test Item Value Reference Range Interpretation [...] mechanical heart valves.CBC W/PLT COUNT & AUTO [id number] 04:49:51 Test Item Value Reference Range Interpretation [...] 0.00-1.00 PERCENT (BEAKER) (test code = 2801) [id number] 10:05:40 Test Item Value Reference Range Interpretation Comments PARTIAL THROMBOPLASTIN TIME 49.3 seconds 22.5-36.0 H (BEAKER) (test code = 760) [id number] 07:34:27 Test Item Value Reference Range Interpretation Comments PARTIAL THROMBOPLASTIN TIME > seconds 22.5-36.0 HH (BEAKER) (test code = 760) [id number] 07:21:03 Test Item Value Reference Range Interpretation Comments MAGNESIUM (BEAKER) (test code = 2.0 mg/dL 1.6-2.6 627) 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 ID - PIAYA LBASIC METABOLIC [id number] 07:21:02 Test Item Value Reference Range Interpretation [...] not appl icable for dialysis patien ts 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 ID - PIAYA LPROTHROMBIN TIME/[id number] 07:11:04 Test Item Value Reference Range Interpretation [...] mechanical heart valves.CBC W/PLT COUNT & AUTO [id number] 06:42:15 Test Item Value Reference Range Interpretation [...] 0.00-1.00 PERCENT (BEAKER) (test code = 2801) [id number] 01:06:03 Test Item Value Reference Range Interpretation Comments PARTIAL THROMBOPLASTIN TIME 90.3 seconds 22.5-36.0 H (BEAKER) (test code = 760) [id number] 23:34:15 Test Item Value Reference Range Interpretation Comments PARTIAL THROMBOPLASTIN TIME > seconds 22.5-36.0 HH (BEAKER) (test code = 760) [id number] 14:56:56 Test Item Value Reference Range Interpretation Comments PARTIAL THROMBOPLASTIN TIME 40.2 seconds 22.5-36.0 H (BEAKER) (test code = 760) [id number] 12:49:04 Test Item Value Reference Range Interpretation Comments PARTIAL THROMBOPLASTIN TIME 139.9 seconds 22.5-36.0 H (BEAKER) (test code = 760) [id number] 08:00:43 Test Item Value Reference Range Interpretation Comments MAGNESIUM (BEAKER) (test code = 1.5 mg/dL 1.6-2.6 L 627) 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 ID - MARCOBASIC METABOLIC [id number] 08:00:42 Test Item Value Reference Range Interpretation [...] not appl icable for dialysis patien ts 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 ID - [id number] 06:54:28 Test Item Value Reference Range Interpretation Comments PARTIAL THROMBOPLASTIN TIME 180.9 seconds 22.5-36.0 HH (BEAKER) (test code = 760) [id number] 06:30:25 Test Item Value Reference Range Interpretation Comments PARTIAL THROMBOPLASTIN TIME 61.3 seconds 22.5-36.0 H (BEAKER) (test code = 760) [id number] 04:16:14 Test Item Value Reference Range Interpretation Comments PARTIAL THROMBOPLASTIN TIME > seconds 22.5-36.0 HH (BEAKER) (test code = 760) PROTHROMBIN TIME/[id number] 03:42:33 Test Item Value Reference Range Interpretation [...] mechanical heart valves.CBC W/PLT COUNT & AUTO [id number] 03:35:52 Test Item Value Reference Range Interpretation [...] 0.00-1.00 PERCENT (BEAKER) (test code = 2801) [id number] 20:27:00 Test Item Value Reference Range Interpretation Comments PARTIAL THROMBOPLASTIN TIME 53.4 seconds 22.5-36.0 H (BEAKER) (test code = 760) [id number] 18:26:32 Test Item Value Reference Range Interpretation Comments PARTIAL THROMBOPLASTIN TIME 112.2 seconds 22.5-36.0 H (BEAKER) (test code = 760) [id number] 10:53:07 Test Item Value Reference Range Interpretation Comments PARTIAL THROMBOPLASTIN TIME 48.7 seconds 22.5-36.0 H (BEAKER) (test code = 760) [id number] 04:20:11 Test Item Value Reference Range Interpretation Comments PARTIAL THROMBOPLASTIN TIME 50.2 seconds 22.5-36.0 H (BEAKER) (test code = 760) [id number] 02:16:45 Test Item Value Reference Range Interpretation Comments PARTIAL THROMBOPLASTIN TIME 120.7 seconds 22.5-36.0 H (BEAKER) (test code = 760) [id number] 01:49:02 Test Item Value Reference Range Interpretation Comments MAGNESIUM (BEAKER) (test code = 1.7 mg/dL 1.6-2.6 627) 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 ID - [id number] 01:49:02 Test Item Value Reference Range Interpretation Comments PHOSPHORUS (BEAKER) (test code = 4.7 mg/dL 2.3-4.7 604) 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 ID - BSBASIC METABOLIC [id number] 01:49:01 Test Item Value Reference Range Interpretation [...] not appl icable for dialysis patien ts 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 ID - BSPROTHROMBIN TIME/[id number] 01:46:19 Test Item Value Reference Range Interpretation [...] mechanical heart valves.CBC W/PLT COUNT & AUTO [id number] 01:29:16 Test Item Value Reference Range Interpretation [...] H PERCENT (BEAKER) (test code = 2801) [id number] 18:43:50 Test Item Value Reference Range Interpretation Comments PARTIAL THROMBOPLASTIN TIME 56.0 seconds 22.5-36.0 H (BEAKER) (test code = 760) [id number] 16:49:50 Test Item Value Reference Range Interpretation Comments PARTIAL THROMBOPLASTIN TIME 123.0 seconds 22.5-36.0 H (BEAKER) (test code = 760) [id number] 08:57:26 Test Item Value Reference Range Interpretation Comments PARTIAL THROMBOPLASTIN TIME 48.3 seconds 22.5-36.0 H (BEAKER) (test code = 760) [id number] 05:52:08 Test Item Value Reference Range Interpretation Comments PARTIAL THROMBOPLASTIN TIME 134.4 seconds 22.5-36.0 H (BEAKER) (test code = 760) PROTHROMBIN TIME/[id number] 05:18:02 Test Item Value Reference Range Interpretation Comments PROTIME (BEAKER) (test code = 14.1 seconds 11.9-14.2 759) INR (BEAKER) (test code = 370) 1.16 <=5.90 RECOMMENDED COUMADIN/WARFARIN INR THERAPY RANGESSTANDARD DOSE: 2.0 - 3.0 Includes: PROPHYLAXIS for venous thrombosis, systemic embolization; TREATMENT for venous thrombosis and/or pulmonary embolus.HIGH RISK: Target INR is 2.5-3.5 for patients with mechanical heart valves.[id number] 05:06:39 Test Item Value Reference Range Interpretation Comments PHOSPHORUS (BEAKER) (test code = 4.9 mg/dL 2.3-4.7 H 604) 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 ID - BSBASIC METABOLIC [id number] 05:06:38 Test Item Value Reference Range Interpretation [...] (test code = 697) EGFR (BEAKER) 83 Interpretati on of eGFR (test code = [...] not appl icable for dialysis patien ts 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 ID - [id number] 05:06:38 Test Item Value Reference Range Interpretation Comments MAGNESIUM (BEAKER) (test code = 1.7 mg/dL 1.6-2.6 627) 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 ID - BSCBC W/PLT COUNT & AUTO [id number] 04:48:51 Test Item Value Reference Range Interpretation [...] 0.00-1.00 PERCENT (BEAKER) (test code = 2801) [id number] 21:33:18 Test Item Value Reference Range Interpretation Comments PARTIAL THROMBOPLASTIN TIME 51.5 seconds 22.5-36.0 H (BEAKER) (test code = 760) HEMOGLOBIN AND [id number] 18:35:26 Test Item Value Reference Range Interpretation Comments HEMOGLOBIN (BEAKER) (test code = 9.5 GM/DL 11.2-15.7 L 410) HEMATOCRIT (BEAKER) (test code = 30.9 % 34.1-44.9 L 411) 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 ID - [id number] 14:30:55 Test Item Value Reference Range Interpretation Comments PARTIAL THROMBOPLASTIN TIME 59.3 seconds 22.5-36.0 H (BEAKER) (test code = 760) [id number] 06:21:11 Test Item Value Reference Range Interpretation Comments PARTIAL THROMBOPLASTIN TIME 62.1 seconds 22.5-36.0 H (BEAKER) (test code = 760) PROTHROMBIN TIME/[id number] 03:22:14 Test Item Value Reference Range Interpretation Comments PROTIME (BEAKER) (test code = 14.8 seconds 11.9-14.2 H 759) INR (BEAKER) (test code = 370) 1.23 <=5.90 RECOMMENDED COUMADIN/WARFARIN INR THERAPY RANGESSTANDARD DOSE: 2.0 - 3.0 Includes: PROPHYLAXIS for venous thrombosis, systemic embolization; TREATMENT for venous thrombosis and/or pulmonary embolus.HIGH RISK: Target INR is 2.5-3.5 for patients with mechanical heart valves.[id number] 03:16:55 Test Item Value Reference Range Interpretation Comments MAGNESIUM (BEAKER) (test code = 2.2 mg/dL 1.6-2.6 627) 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 ID - [id number] 03:16:55 Test Item Value Reference Range Interpretation Comments PHOSPHORUS (BEAKER) (test code = 3.8 mg/dL 2.3-4.7 604) 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 ID - BSBASIC METABOLIC [id number] 03:16:54 Test Item Value Reference Range Interpretation [...] eGF R is based on the CKD-EPI 202 equation that d oes not use a race coefficientEsti mated GFR is not as accur ate as Creatinine [place] in predicting glom erular filtration rate . Estimated GFR is not appl icable for dialysis patien ts 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 ID - BSCBC W/PLT COUNT & AUTO [id number] 02:57:48 Test Item Value Reference Range Interpretation [...] PERCENT (BEAKER) (test code = 2801) Prepare [id number] 23:54:00 Test Item Value Reference Range Interpretation Comments CROSSMATCH (test code = 2264) COMPATIBLE Unit ABO (test code = A Pos [id number]) UNIT NUMBER (test code = [id number] 934-0) Status (test code = 2200480) [place]_TIMEINCHART Blood Bank Product (test code RED BLOOD CELLS = 2263) PRODUCT CODE (test code = Z0241K39 933-2) [facility] [id number] 23:54:00 Test Item Value Reference Range Interpretation Comments CROSSMATCH (test code = 2264) COMPATIBLE Unit ABO (test code = A Pos 7442970) UNIT NUMBER (test code = [id number] 934-0) Status (test code = 7633169) TX_TIMEINCHART Blood Bank Product (test code RED BLOOD CELLS = 2263) PRODUCT CODE (test code = E0091Y02 933-2) [facility] [id number] 23:54:00 Test Item Value Reference Range Interpretation Comments CROSSMATCH (test code = 2264) COMPATIBLE Unit ABO (test code = A Pos 3886504) UNIT NUMBER (test code = [id number] 934-0) Status (test code = 7272681) TX_TIMEINCHART Blood Bank Product (test code RED BLOOD CELLS = 2263) PRODUCT CODE (test code = Y1914L31 933-2) [facility] [id number] 23:54:00 Test Item Value Reference Range Interpretation Comments CROSSMATCH (test code = 2264) COMPATIBLE Unit ABO (test code = A Pos 4288942) UNIT NUMBER (test code = [id number] 934-0) Status (test code = 6903451) TX_TIMEINCHART Blood Bank Product (test code RED BLOOD CELLS = 2263) PRODUCT CODE (test code = A8031Q02 933-2) [facility] [id number] 23:54:00 Test Item Value Reference Range Interpretation Comments CROSSMATCH (test code = 2264) COMPATIBLE Unit ABO (test code = A Pos 9301067) UNIT NUMBER (test code = [id number] 934-0) Status (test code = 1921069) TX_TIMEINCHART Blood Bank Product (test code RED BLOOD CELLS = 2263) PRODUCT CODE (test code = G2636D85 933-2) [facility] [id number] 23:54:00 Test Item Value Reference Range Interpretation Comments CROSSMATCH (test code = 2264) COMPATIBLE Unit ABO (test code = A Pos 3811547) UNIT NUMBER (test code = [id number] 934-0) Status (test code = 2997819) TX_TIMEINCHART Blood Bank Product (test code RED BLOOD CELLS = 2263) PRODUCT CODE (test code = G6005Z60 933-2) [facility] [id number] 23:54:00 Test Item Value Reference Range Interpretation Comments CROSSMATCH (test code = 2264) COMPATIBLE Unit ABO (test code = A Pos 7102588) UNIT NUMBER (test code = [id number] 934-0) Status (test code = 6626846) TX_TIMEINCHART Blood Bank Product (test code RED BLOOD CELLS = 2263) PRODUCT CODE (test code = R7798I59 933-2) [facility] [id number] 23:54:00 Test Item Value Reference Range Interpretation Comments CROSSMATCH (test code = 2264) COMPATIBLE Unit ABO (test code = A Pos 2029765) UNIT NUMBER (test code = [id number] 934-0) Status (test code = 0683680) TX_TIMEINCHART Blood Bank Product (test code RED BLOOD CELLS = 2263) PRODUCT CODE (test code = Q2320P31 933-2) [facility] [id number] 21:46:53 Test Item Value Reference Range Interpretation Comments HEMOGLOBIN (BEAKER) (test code = 9.0 GM/DL 11.2-15.7 L 410) HEMATOCRIT (BEAKER) (test code = 30.5 % 34.1-44.9 L 411) 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 ID - [id number] Echo W/Doppler(CW/PW/Color)2022-05-21 18:02:14Ejection FractionSLE ECHO HEARTLAB [facility]D Echo W/Doppler(CW/PW/Color)2022-05-21 18:02:14Ejection FractionSLE ECHO HEARTLAB [facility] Echo W/Doppler(CW/PW/Color) 2022-05-21 18:02:14Ejection FractionSLE ECHO HEARTLAB [facility] Echo W/Doppler(CW/PW/Color)2022-05-21 18:02:14Ejection FractionSLEH ECHO HEARTLAB [facility] Echo W/Doppler(CW/PW/Color)2022-05-21 18:02:14Ejection FractionSLEH ECHO HEARTLAB [facility] Echo W/Doppler(CW/PW/Color) 2022-05-21 18:02:14Ejection FractionSLE ECHO HEARTLAB [facility] Echo W/Doppler(CW/PW/Color)2022-05-21 18:02:14Ejection FractionSLE ECHO HEARTLAB [facility] Echo W/Doppler(CW/PW/Color)2022-05-21 18:02:14Ejection FractionSLE [facility]CHO [facility] 15:07:17 Test Item Value Reference Range Interpretation Comments PARTIAL THROMBOPLASTIN TIME 68.4 seconds 22.5-36.0 H (BEAKER) (test code = 760) PROTHROMBIN TIME/[id number] 15:05:56 Test Item Value Reference Range Interpretation Comments PROTIME (BEAKER) (test code = 15.5 seconds 11.9-14.2 H 759) INR (BEAKER) (test code = 370) 1.31 <=5.90 RECOMMENDED COUMADIN/WARFARIN INR THERAPY RANGESSTANDARD DOSE: 2.0 - 3.0 Includes: PROPHYLAXIS for venous thrombosis, systemic embolization; TREATMENT for venous thrombosis and/or pulmonary embolus.HIGH RISK: Target INR is 2.5-3.5 for patients with mechanical heart valves.TSH/FREE T4 IF [id number] 13:50:00 Test Item Value Reference Range Interpretation Comments THYROID STIMULATING HORMONE 1.746 uIU/mL 0.350-4.940 (BEAKER) (test code = 772) 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 ID - ARMAND LHEMOGLOBIN AND [id number] 13:00:10 Test Item Value Reference Range Interpretation Comments HEMOGLOBIN (BEAKER) (test code = 9.0 GM/DL 11.2-15.7 L 410) HEMATOCRIT (BEAKER) (test code = 29.3 % 34.1-44.9 L 411) 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 ID - [id number] 08:55:39 Test Item Value Reference Range Interpretation Comments PARTIAL THROMBOPLASTIN TIME 70.0 seconds 22.5-36.0 H (BEAKER) (test code = 760) [id number] 05:39:20 Test Item Value Reference Range Interpretation Comments PHOSPHORUS (BEAKER) (test code = 3.3 mg/dL 2.3-4.7 604) 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 ID - MARCOBASIC METABOLIC [id number] 05:39:19 Test Item Value Reference Range Interpretation [...] not appl icable for dialysis patien ts 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 ID - [id number] 05:39:19 Test Item Value Reference Range Interpretation Comments MAGNESIUM (BEAKER) (test code = 1.6 mg/dL 1.6-2.6 627) 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 ID - MARCOCBC W/PLT COUNT & AUTO [id number] 05:18:48 Test Item Value Reference Range Interpretation [...] 0.00-1.00 PERCENT (BEAKER) (test code = 2801) [id number] 01:34:38 Test Item Value Reference Range Interpretation Comments PARTIAL THROMBOPLASTIN TIME 94.3 seconds 22.5-36.0 H (BEAKER) (test code = 760) PROTHROMBIN TIME/[id number] 01:32:54 Test Item Value Reference Range Interpretation Comments PROTIME (BEAKER) (test code = 15.8 seconds 11.9-14.2 H 759) INR (BEAKER) (test code = 370) 1.35 <=5.90 RECOMMENDED COUMADIN/WARFARIN INR THERAPY RANGESSTANDARD DOSE: 2.0 - 3.0 Includes: PROPHYLAXIS for venous thrombosis, systemic embolization; TREATMENT for venous thrombosis and/or pulmonary embolus.HIGH RISK: Target INR is 2.5-3.5 for patients with mechanical heart valves.HEMOGLOBIN AND [id number] 20:48:52 Test Item Value Reference Range Interpretation Comments HEMOGLOBIN (BEAKER) (test code = 8.6 GM/DL 11.2-15.7 L 410) HEMATOCRIT (BEAKER) (test code = 27.9 % 34.1-44.9 L 411) 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 ID - [id number] 17:34:13 Test Item Value Reference Range Interpretation Comments PARTIAL THROMBOPLASTIN TIME 53.7 seconds 22.5-36.0 H (BEAKER) (test code = 760) PROTHROMBIN TIME/[id number] 17:33:32 Test Item Value Reference Range Interpretation Comments PROTIME (BEAKER) (test code = 16.0 seconds 11.9-14.2 H 759) INR (BEAKER) (test code = 370) 1.37 <=5.90 RECOMMENDED COUMADIN/WARFARIN INR THERAPY RANGESSTANDARD DOSE: 2.0 - 3.0 Includes: PROPHYLAXIS for venous thrombosis, systemic embolization; TREATMENT for venous thrombosis and/or pulmonary embolus.HIGH RISK: Target INR is 2.5-3.5 for patients with mechanical heart valves.[id number] 13:24:26 Test Item Value Reference Range Interpretation Comments PARTIAL THROMBOPLASTIN TIME 70.7 seconds 22.5-36.0 H (BEAKER) (test code = 760) HEMOGLOBIN AND [id number] 13:10:45 Test Item Value Reference Range Interpretation Comments HEMOGLOBIN (BEAKER) (test code = 8.4 GM/DL 11.2-15.7 L 410) HEMATOCRIT (BEAKER) (test code = 27.0 % 34.1-44.9 L 411) 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 ID - 6000Prepare [id number] 08:19:00 Test Item Value Reference Range Interpretation Comments CROSSMATCH (test code = 2264) COMPATIBLE Unit ABO (test code = A Pos 3971878) UNIT NUMBER (test code = [id number] 934-0) Status (test code = 4529178) ISSUED Blood Bank Product (test code RED BLOOD CELLS = 2263) PRODUCT CODE (test code = G0841A06 933-2) [facility] [id number] 08:19:00 Test Item Value Reference Range Interpretation Comments CROSSMATCH (test code = 2264) COMPATIBLE Unit ABO (test code = A Pos 3925172) UNIT NUMBER (test code = [id number] 934-0) Status (test code = 4679651) ISSUED Blood Bank Product (test code RED BLOOD CELLS = 2263) PRODUCT CODE (test code = M9567H49 933-2) [facility] CenterAPTT2023-[facility]-05 05:24:24 Test Item Value Reference Range Interpretation Comments PARTIAL THROMBOPLASTIN TIME 91.6 seconds 22.5-36.0 H (BEAKER) (test code = 760) [id number] 04:22:23 Test Item Value Reference Range Interpretation Comments MAGNESIUM (BEAKER) (test code = 1.8 mg/dL 1.6-2.6 627) 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 ID - ARMAND [id number] 04:22:23 Test Item Value Reference Range Interpretation Comments PHOSPHORUS (BEAKER) (test code = 4.1 mg/dL 2.3-4.7 604) 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 ID - ARMAND LBASIC METABOLIC [id number] 04:22:22 Test Item Value Reference Range Interpretation [...] not appl icable for dialysis patien ts 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 ID - PIAYA LPROTHROMBIN TIME/[id number] 03:58:55 Test Item Value Reference Range Interpretation [...] mechanical heart valves.CBC W/PLT COUNT & AUTO [id number] 03:54:23 Test Item Value Reference Range Interpretation [...] 0.00-1.00 PERCENT (BEAKER) (test code = 2801) [id number] 23:23:33 Test Item Value Reference Range Interpretation Comments PARTIAL THROMBOPLASTIN TIME 63.2 seconds 22.5-36.0 H (BEAKER) (test code = 760) HEMOGLOBIN AND [id number] 21:26:00 Test Item Value Reference Range Interpretation Comments HEMOGLOBIN (BEAKER) (test code = 7.6 GM/DL 11.2-15.7 L 410) HEMATOCRIT (BEAKER) (test code = 24.8 % 34.1-44.9 L 411) 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 ID - [id number] 17:30:54 Test Item Value Reference Range Interpretation Comments PARTIAL THROMBOPLASTIN TIME 37.0 seconds 22.5-36.0 H (BEAKER) (test code = 760) PROTHROMBIN TIME/[id number] 17:29:53 Test Item Value Reference Range Interpretation Comments PROTIME (BEAKER) (test code = 18.3 seconds 11.9-14.2 H 759) INR (BEAKER) (test code = 370) 1.62 <=5.90 RECOMMENDED COUMADIN/WARFARIN INR THERAPY RANGESSTANDARD DOSE: 2.0 - 3.0 Includes: PROPHYLAXIS for venous thrombosis, systemic embolization; TREATMENT for venous thrombosis and/or pulmonary embolus.HIGH RISK: Target INR is 2.5-3.5 for patients with mechanical heart valves.PROTHROMBIN TIME/[id number] 12:31:00 Test Item Value Reference Range Interpretation Comments PROTIME (BEAKER) (test code = 18.7 seconds 11.9-14.2 H 759) INR (BEAKER) (test code = 370) 1.61 <=5.90 RECOMMENDED COUMADIN/WARFARIN INR THERAPY RANGESSTANDARD DOSE: 2.0 - 3.0 Includes: PROPHYLAXIS for venous thrombosis, systemic embolization; TREATMENT for venous thrombosis and/or pulmonary embolus.HIGH RISK: Target INR is 2.5-3.5 for patients with mechanical heart valves.HEMOGLOBIN AND [id number] 12:24:20 Test Item Value Reference Range Interpretation Comments HEMOGLOBIN (BEAKER) (test code = 7.4 GM/DL 11.2-15.7 L 410) HEMATOCRIT (BEAKER) (test code = 23.7 % 34.1-44.9 L 411) 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 ID - 6000POC-Glucose [id number] 05:40:23 Test Item Value Reference Range Interpretation Comments POC-Glucose Meter (test 78 mg/dL 70-110 : TE STED AT [facility] code = 1538) [address] [place] [address], [facility] 30: 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/Techni valarie ID = [id number] for Yumi, James Lab Interpretation (test Normal code = 54852-1) [facility]-Glucose [id number] 05:40:23 Test Item Value Reference Range Interpretation Comments POC-Glucose Meter (test 78 mg/dL 70-110 : TE STED AT [facility] code = 1538) [address] [place] [address], 770 30: 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 [facility] [facility] Unit/Techni valarie ID = [id number] for Yumi, James Lab Interpretation (test Normal code = 35218-4) [facility] [id number] 05:40:23 Test Item Value Reference Range Interpretation Comments POC-Glucose Meter (test 78 mg/dL 70-110 : TE STED AT [facility] code = 1538) [address] [place] [address], 770 30: 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 [facility] Recovery Unit/Techni valarie ID = [id number] for Yumi, James Lab Interpretation (test Normal code = 62967-4) [facility] [id number] 05:40:23 Test Item Value Reference Range Interpretation Comments POC-Glucose Meter (test 78 mg/dL 70-110 : TE STED AT [facility] code = 1538) [address] [facility], 770 30: 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 [employer] Recovery Unit/Techni valarie ID = [id number] for Yumi, James Lab Interpretation (test Normal code = 09713-8) [facility]-Glucose [id number] 05:40:23 Test Item Value Reference Range Interpretation Comments POC-Glucose Meter (test 78 mg/dL 70-110 : TE STED AT [facility] code = 1538) [address] [place] [address], 770 30: 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 [employer] Unit/Techni valarie ID = [id number] for Yumi, James Lab Interpretation (test Normal code = 84273-1) [facility]-Glucose [id number] 05:40:23 Test Item Value Reference Range Interpretation Comments POC-Glucose Meter (test 78 mg/dL 70-110 : TE STED AT [facility] code = 1538) [address] [place] [address], [facility] 30: 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 [facility] Recovery Unit/Techni valarie ID = [id number] for Yumi, James Lab Interpretation (test Normal code = 47516-0) [facility]-Glucose [id number] 05:40:23 Test Item Value Reference Range Interpretation Comments POC-Glucose Meter (test 78 mg/dL 70-110 : TE STED AT [facility] code = 1538) [address] [place] [address], 770 30: 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 [employer] Unit/Techni valarie ID = [id number] for Yumi, James Lab Interpretation (test Normal code = 48428-0) [facility]-Glucose [id number] 05:40:23 Test Item Value Reference Range Interpretation Comments POC-Glucose Meter (test 78 mg/dL 70-110 : TE STED AT [facility] code = 1538) [address] [place] [address], 770 30: 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 [facility] Unit/Techni valarie ID = [id number] for Yumi, James Lab Interpretation (test Normal code = 63489-6) [facility]-Glucose [id number] 05:40:23 Test Item Value Reference Range Interpretation Comments POC-Glucose Meter (test 78 mg/dL 70-110 : TE STED AT [facility] code = 1538) [address] [place] [address], 770 30: 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 [employer] Recovery Unit/Techni valarie ID = [id number] for Yumi, James Lab Interpretation (test Normal code = 22925-3) [facility]-Glucose [id number] 05:40:23 Test Item Value Reference Range Interpretation Comments POC-Glucose Meter (test 78 mg/dL 70-110 : TE STED AT [facility] code = 1538) [address] [facility] [address]70 30: 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 V[employer] Recovery Unit/Techni valarie ID = [id number] for James Eason Lab Interpretation (test Normal code = 85912-6) [facility] Center[facility] [id number] 05:40:23 Test Item Value Reference Range Interpretation Comments POC-GLUCOSE METER 78 mg/dL 70-110 : TESTED A T [facility] 6720 (BEAKER) (test code = JOSELITO R [facility], 1538) [address]: 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 V[employer] Recovery Unit/Techni valarie ID = [id number] for James Cisneros [id number] 04:23:09 Test Item Value Reference Range Interpretation Comments MAGNESIUM (BEAKER) (test code = 2.1 mg/dL 1.6-2.6 627) 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 [facility] ID - ARMAND [id number] 04:23:09 Test Item Value Reference Range Interpretation Comments PHOSPHORUS (BEAKER) (test code = 1.9 mg/dL 2.3-4.7 L 604) 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 ID - ARMAND LBASIC METABOLIC [id number] 04:23:08 Test Item Value Reference Range Interpretation [...] not appl icable for dialysis patien ts 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 [facility] Unit ID - PIAYA LPROTHROMBIN TIME/[id number] 04:07:24 Test Item Value Reference Range Interpretation [...] mechanical heart valves.CBC W/PLT COUNT & AUTO [id number] 04:00:27 Test Item Value Reference Range Interpretation [...] PERCENT (BEAKER) (test code = 2801) POCT-GLUCOSE [id number] 23:14:02 Test Item Value Reference Range Interpretation Comments POC-GLUCOSE METER 86 mg/dL 70-110 : TESTED A T [facility] 6720 (BEAKER) (test code = [place]ITO [place], 1538) [address]: 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 [facility] Recovery Unit/Techni valarie ID = [id number] for Robles Hanson BUN AND CREATININE [id number] 21:02:50 Test Item Value Reference Range Interpretation Comments BLOOD UREA 10 mg/dL 7-21 NITROGEN (BEAKER) (test code = 354) CREATININE 0.79 mg/dL 0.57-1.25 (BEAKER) (test code = 358) BUN/CREAT RATIO 13 For a normal individual on (BEAKER) (test a normal diet , the code = reference inter [place] for the 2278599399) mass ratio rang es between 12:1 and [...] not appl icable for dialysis patien ts 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 [facility] Unit ID - [id number] 21:02:49 Test Item Value Reference Range Interpretation Comments MAGNESIUM (BEAKER) (test code = 2.1 mg/dL 1.6-2.6 627) 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 Unit ID - [id number] 21:02:49 Test Item Value Reference Range Interpretation Comments POTASSIUM (BEAKER) (test code = 3.7 meq/L 3.5-5.1 379) 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 ID - BSHEMOGLOBIN AND [id number] 20:18:40 Test Item Value Reference Range Interpretation Comments HEMOGLOBIN (BEAKER) (test code = 7.5 GM/DL 11.2-15.7 L 410) HEMATOCRIT (BEAKER) (test code = 23.4 % 34.1-44.9 L 411) 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 [facility] [facility] Unit ID - [id number], CTA [id number] 19:41:00Unlisted Reason for Exam - Click Yes and Enter Reason Below->YesUnlisted Reason for Exam->Looking for mesenteric ischemia. [facility] : 1955 [...] Goff MDReport Verified Date/Time: 05/18/2022 19:41:16 POCT-GLUCOSE [id number] 19:08:28 Test Item Value Reference Range Interpretation Comments POC-GLUCOSE METER 91 mg/dL 70-110 : TESTED A T [facility] 6720 ([facility]) (test code = JOSELITO Franco [facility], 1538) [address]: 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 Vapor Recovery Unit/Techni valarie ID = [id number] for Scarlet Maravilla HIGH SENSITIVITY TROPONIN [id number] 16:22:26 Test Item Value Reference Range Interpretation Comments HIGH SENSITIVITY TROPONIN I (test 9 pg/ml <=17 code = 7700514) 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 [facility] [facility] Unit ID - BSThe DEGREASER OPERATOR STAT High Sensitivity Troponin-I results should be used in conjunctionwith other diagnostic information such as ECG, clinical observations and information, and patient symptoms to aid in the diagnosis of RI.Urinalysis w/Microscopic + Reflex to [id number] 16:12:56 Test Item Value Reference Range Interpretation Comments Color, UA (test code Yellow = 5778-6) Clarity, UA (test Hazy code = 5767-9) Specific [place], UA 1.045 1.001-1.035 H (test code = 5811-5) pH, UA (test code = 6.5 5.0-8.0 5803-2) Protein, UA (test 20 mg/dL Negative A code = 55810-1) Glucose, UA (test Negative Negative code = 365) Ketones, UA (test Negative Negative code = 2514-8) Bilirubin, UA (test Negative Negative code = 35586-2) Blood, UA (test code Moderate Negative A = 49264-9) Nitrite, UA (test Negative Negative code = 5802-4) Leukocytes, UA (test Large Negative A code = 5799-2) Urobilinogen, UA 0.2 0.2-1.0 (test code = 49055-8) RBC, UA (test code = 34 See_Comment [Autom ated 36819-8) message] The system which generated this result [...] . Bacteria, UA (test Few code = 16195-8) Squam Epithel, UA <1 See_Comment [Automate d (test code = 34510-3) messag e] The system which generated this result transmit banadr reference range : /HPF. The reference range was not used to interpret this result as normal/abnormal . Specimen Source (test code = 2795) ROBERT (test code = ROBERT) 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 [facility] [facility] Unit ID - [auto]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 Vapor Recovery Unit ID - tech Lab Interpretation Abnormal (test code = 26338-3) [facility] + Reflex to Culture 2022-05-18 16:12:56 Test Item Value Reference Range Interpretation Comments Color, UA (test code Yellow = 5778-6) Clarity, UA (test Hazy code = 5767-9) Specific [place], UA 1.045 1.001-1.035 H (test code = 5811-5) pH, UA (test code = 6.5 5.0-8.0 5803-2) Protein, UA (test 20 mg/dL Negative A code = 59374-7) Glucose, UA (test Negative Negative code = 365) Ketones, UA (test Negative Negative code = 2514-8) Bilirubin, UA (test Negative Negative code = 15070-1) Blood, UA (test code Moderate Negative A = 25902-9) Nitrite, UA (test Negative Negative code = 5802-4) Leukocytes, UA (test Large Negative A code = 5799-2) Urobilinogen, UA 0.2 0.2-1.0 (test code = 35930-3) RBC, UA (test code = 34 See_Comment [Autom ated 96225-9) message] The system which generated this result [...] . Bacteria, UA (test Few code = 35452-3) Squam Epithel, UA <1 See_Comment [Automate d (test code = 09684-2) messag e] The system which generated this result transmit bandar reference range : /HPF. The reference range was not used to interpret this result as normal/abnormal . Specimen Source (test code = 2795) ROBERT (test code = ROBERT) 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 [facility] [facility] Unit ID - [auto]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 Vapor Recovery Unit ID - tech Lab Interpretation Abnormal (test code = 86620-6) [facility]scopic + Reflex to Culture 2022-05-18 16:12:56 Test Item Value Reference Range Interpretation Comments Color, UA (test code Yellow = 5778-6) Clarity, UA (test Hazy code = 5767-9) Specific [place], UA 1.045 1.001-1.035 H (test code = 5811-5) pH, UA (test code = 6.5 5.0-8.0 5803-2) Protein, UA (test 20 mg/dL Negative A code = 14648-6) Glucose, UA (test Negative Negative code = 365) Ketones, UA (test Negative Negative code = 2514-8) Bilirubin, UA (test Negative Negative code = 95001-5) Blood, UA (test code Moderate Negative A = 94107-0) Nitrite, UA (test Negative Negative code = 5802-4) Leukocytes, UA (test Large Negative A code = 5799-2) Urobilinogen, UA 0.2 0.2-1.0 (test code = 30854-3) RBC, UA (test code = 34 See_Comment [Autom ated 25423-7) message] The system which generated this result [...] . Bacteria, UA (test Few code = 12198-5) Squam Epithel, UA <1 See_Comment [Automate d (test code = 63266-0) messag e] The system which generated this result transmit bandar reference range : /HPF. The reference range was not used to interpret this result as normal/abnormal . Specimen Source (test code = 2795) ROBERT (test code = ROBERT) 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 [facility] Unit ID - [auto]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 Vapor Recovery Unit ID - tech Lab Interpretation Abnormal (test code = 20704-8) [facility]/Microscopic + Reflex to Culture 2022-05-18 16:12:56 Test Item Value Reference Range Interpretation Comments Color, UA (test code Yellow = 5778-6) Clarity, UA (test Hazy code = 5767-9) Specific [place], UA 1.045 1.001-1.035 H (test code = 5811-5) pH, UA (test code = 6.5 5.0-8.0 5803-2) Protein, UA (test 20 mg/dL Negative A code = 11975-5) Glucose, UA (test Negative Negative code = 365) Ketones, UA (test Negative Negative code = 2514-8) Bilirubin, UA (test Negative Negative code = 48046-8) Blood, UA (test code Moderate Negative A = 16237-7) Nitrite, UA (test Negative Negative code = 5802-4) Leukocytes, UA (test Large Negative A code = 5799-2) Urobilinogen, UA 0.2 0.2-1.0 (test code = 85471-4) RBC, UA (test code = 34 See_Comment [Autom ated 50292-3) message] The system which generated this result [...] . Bacteria, UA (test Few code = 25334-6) Squam Epithel, UA <1 See_Comment [Automate d (test code = 81409-1) messag e] The system which generated this result transmit bandar reference range : /HPF. The reference range was not used to interpret this result as normal/abnormal . Specimen Source (test code = 2795) ROBERT (test code = ROBERT) 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 [facility] Recovery Unit ID - [auto]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 Vapor Recovery Unit ID - tech Lab Interpretation Abnormal (test code = 78267-7) [facility]/Microscopic + Reflex to Culture 2022-05-18 16:12:56 Test Item Value Reference Range Interpretation Comments Color, UA (test code Yellow = 5778-6) Clarity, UA (test Hazy code = 5767-9) Specific [place], UA 1.045 1.001-1.035 H (test code = 5811-5) pH, UA (test code = 6.5 5.0-8.0 5803-2) Protein, UA (test 20 mg/dL Negative A code = 33691-6) Glucose, UA (test Negative Negative code = 365) Ketones, UA (test Negative Negative code = 2514-8) Bilirubin, UA (test Negative Negative code = 57416-2) Blood, UA (test code Moderate Negative A = 05803-7) Nitrite, UA (test Negative Negative code = 5802-4) Leukocytes, UA (test Large Negative A code = 5799-2) Urobilinogen, UA 0.2 0.2-1.0 (test code = 44911-5) RBC, UA (test code = 34 See_Comment [Autom ated 69266-6) message] The system which generated this result [...] . Bacteria, UA (test Few code = 47405-6) Squam Epithel, UA <1 See_Comment [Automate d (test code = 59921-3) messag e] The system which generated this result transmit bandar reference range : /HPF. The reference range was not used to interpret this result as normal/abnormal . Specimen Source (test code = 2795) ROBERT (test code = ROBERT) 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 [facility] Recovery Unit ID - [auto]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 Vapor Recovery Unit ID - tech Lab Interpretation Abnormal (test code = 73477-8) [facility]/Microscopic + Reflex to Culture 2022-05-18 16:12:56 Test Item Value Reference Range Interpretation Comments Color, UA (test code Yellow = 5778-6) Clarity, UA (test Hazy code = 5767-9) Specific [place], UA 1.045 1.001-1.035 H (test code = 5811-5) pH, UA (test code = 6.5 5.0-8.0 5803-2) Protein, UA (test 20 mg/dL Negative A code = 88760-9) Glucose, UA (test Negative Negative code = 365) Ketones, UA (test Negative Negative code = 2514-8) Bilirubin, UA (test Negative Negative code = 64358-7) Blood, UA (test code Moderate Negative A = 79921-5) Nitrite, UA (test Negative Negative code = 5802-4) Leukocytes, UA (test Large Negative A code = 5799-2) Urobilinogen, UA 0.2 0.2-1.0 (test code = 39634-2) RBC, UA (test code = 34 See_Comment [Autom ated 44724-6) message] The system which generated this result [...] . Bacteria, UA (test Few code = 52662-3) Squam Epithel, UA See_Comment [Automate d (test code = 27367-3) messag e] The system which generated this result transmit bandar reference range : /HPF. The reference range was not used to interpret this result as normal/abnormal . Specimen Source (test code = 2795) ROBERT (test code = ROBERT) 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 [facility] Recovery Unit ID - [auto]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 Vapor Recovery Unit ID - tech Lab Interpretation Abnormal (test code = 13986-0) [facility]/Microscopic + Reflex to Culture 2022-05-18 16:12:56 Test Item Value Reference Range Interpretation Comments Color, UA (test code Yellow = 5778-6) Clarity, UA (test Hazy code = 5767-9) Specific [place], UA 1.045 1.001-1.035 H (test code = 5811-5) pH, UA (test code = 6.5 5.0-8.0 5803-2) Protein, UA (test 20 mg/dL Negative A code = 83725-7) Glucose, UA (test Negative Negative code = 365) Ketones, UA (test Negative Negative code = 2514-8) Bilirubin, UA (test Negative Negative code = 73048-1) Blood, UA (test code Moderate Negative A = 35211-5) Nitrite, UA (test Negative Negative code = 5802-4) Leukocytes, UA (test Large Negative A code = 5799-2) Urobilinogen, UA 0.2 0.2-1.0 (test code = 17536-8) RBC, UA (test code = 34 See_Comment [Autom ated 52933-6) message] The system which generated this result [...] . Bacteria, UA (test Few code = 73060-9) Squam Epithel, UA See_Comment [Automate d (test code = 23147-8) messag e] The system which generated this result transmit bandar reference range : /HPF. The reference range was not used to interpret this result as normal/abnormal . Specimen Source (test code = 2795) ROBERT (test code = ROBERT) 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 [facility] Recovery Unit ID - [auto]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 Vapor Recovery Unit ID - tech Lab Interpretation Abnormal (test code = 52731-0) [facility]/Microscopic + Reflex to Culture 2022-05-18 16:12:56 Test Item Value Reference Range Interpretation Comments Color, UA (test code Yellow = 5778-6) Clarity, UA (test Hazy code = 5767-9) Specific [place], UA 1.045 1.001-1.035 H (test code = 5811-5) pH, UA (test code = 6.5 5.0-8.0 5803-2) Protein, UA (test 20 mg/dL Negative A code = 19323-5) Glucose, UA (test Negative Negative code = 365) Ketones, UA (test Negative Negative code = 2514-8) Bilirubin, UA (test Negative Negative code = 96174-1) Blood, UA (test code Moderate Negative A = 82526-3) Nitrite, UA (test Negative Negative code = 5802-4) Leukocytes, UA (test Large Negative A code = 5799-2) Urobilinogen, UA 0.2 0.2-1.0 (test code = 18677-1) RBC, UA (test code = 34 See_Comment [Autom ated 24925-0) message] The system which generated this result [...] . Bacteria, UA (test Few code = 20657-7) Squam Epithel, UA See_Comment [Automate d (test code = 02970-2) messag e] The system which generated this result transmit bandar reference range : /HPF. The reference range was not used to interpret this result as normal/abnormal . Specimen Source (test code = 2795) ROBERT (test code = ROBERT) 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 [facility] Unit ID - [auto]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 V[employer] Recovery Unit ID - tech Lab Interpretation Abnormal (test code = 64187-9) [facility]/Microscopic + Reflex to Culture 2022-05-18 16:12:56 Test Item Value Reference Range Interpretation Comments Color, UA (test code Yellow = 5778-6) Clarity, UA (test Hazy code = 5767-9) Specific [place], UA 1.045 1.001-1.035 H (test code = 5811-5) pH, UA (test code = 6.5 5.0-8.0 5803-2) Protein, UA (test 20 mg/dL Negative A code = 92949-1) Glucose, UA (test Negative Negative code = 365) Ketones, UA (test Negative Negative code = 2514-8) Bilirubin, UA (test Negative Negative code = 31143-7) Blood, UA (test code Moderate Negative A = 87312-6) Nitrite, UA (test Negative Negative code = 5802-4) Leukocytes, UA (test Large Negative A code = 5799-2) Urobilinogen, UA 0.2 0.2-1.0 (test code = 97051-3) RBC, UA (test code = 34 See_Comment [Autom ated 88783-7) message] The system which generated this result [...] . Bacteria, UA (test Few code = 47847-8) Squam Epithel, UA See_Comment [Automate d (test code = 40031-6) messag e] The system which generated this result transmit bandar reference range : /HPF. The reference range was not used to interpret this result as normal/abnormal . Specimen Source (test code = 2795) ROBERT (test code = ROBERT) 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 Unit ID - [auto]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 Vapor Recovery Unit ID - tech Lab Interpretation Abnormal (test code = 99771-5) [facility]/Microscopic + Reflex to Culture 2022-05-18 16:12:56 Test Item Value Reference Range Interpretation Comments Color, UA (test code Yellow = 5778-6) Clarity, UA (test Hazy code = 5767-9) Specific [place], UA 1.045 1.001-1.035 H (test code = 5811-5) pH, UA (test code = 6.5 5.0-8.0 5803-2) Protein, UA (test 20 mg/dL Negative A code = 54107-8) Glucose, UA (test Negative Negative code = 365) Ketones, UA (test Negative Negative code = 2514-8) Bilirubin, UA (test Negative Negative code = 98688-7) Blood, UA (test code Moderate Negative A = 93951-1) Nitrite, UA (test Negative Negative code = 5802-4) Leukocytes, UA (test Large Negative A code = 5799-2) Urobilinogen, UA 0.2 0.2-1.0 (test code = 21494-2) RBC, UA (test code = 34 See_Comment [Autom ated 00350-6) message] The system which generated this result [...] . Bacteria, UA (test Few code = 03855-3) Squam Epithel, UA See_Comment [Automate d (test code = 07399-2) messag e] The system which generated this result transmit bnadar reference range : /HPF. The reference range was not used to interpret this result as normal/abnormal . Specimen Source (test code = 2795) ROBERT (test code = ROBERT) 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 ID - [auto]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 [facility] Recovery Unit ID - tech Lab Interpretation Abnormal (test code = 41979-6) [facility]FLEX URINE [id number] 16:12:56 Test Item Value Reference Range Interpretation [...] = 516) SOURCE(BEAKER) (test code = 2795) 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 ID - [auto]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 [facility] Recovery Unit ID - techPROTHROMBIN TIME/[id number] 16:02:01 Test Item Value Reference Range Interpretation Comments PROTIME (BEAKER) (test code = 25.8 seconds 11.9-14.2 H 759) INR (BEAKER) (test code = 370) 2.54 <=5.90 RECOMMENDED COUMADIN/WARFARIN INR THERAPY RANGESSTANDARD DOSE: 2.0 - 3.0 Includes: PROPHYLAXIS for venous thrombosis, systemic embolization; TREATMENT for venous thrombosis and/or pulmonary embolus.HIGH RISK: Target INR is 2.5-3.5 for patients with mechanical heart valves.CALCIUM, [id number] 13:31:38 Test Item Value Reference Range Interpretation [...] 0-0 (BEAKER) (test code = 413) POCT-GLUCOSE [id number] 13:07:25 Test Item Value Reference Range Interpretation Comments POC-GLUCOSE METER 81 mg/dL 70-110 : TESTED A T [facility] 6720 (BEAKER) (test code = [place], 1538) [address]: 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 [facility] Recovery Unit/Techni valarie ID = [id number] for Scarlet Maravilla B-TYPE NATRIURETIC FACTOR (BNP)2022-05-18 11:38:06 Test Item Value Reference Range Interpretation Comments B-TYPE NATRIURETIC PEPTIDE (BEAKER) 97 pg/mL 0-100 (test code = 700) 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 ID - FANTASMA [id number] 11:34:39 Test Item Value Reference Range Interpretation Comments FIBRINOGEN LEVEL (BEAKER) (test 440 mg/dl 225-434 H code = 658) [id number] 11:32:28 Test Item Value Reference Range Interpretation Comments LIPASE (BEAKER) (test code = 749) 13 U/L 8-78 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 ID - FANTASMA BCOMPREHENSIVE METABOLIC [id number] 11:32:27 Test Item Value Reference Range Interpretation [...] not appl icable for dialysis patien ts 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 ID - FANTASMA [id number] 11:32:27 Test Item Value Reference Range Interpretation Comments MAGNESIUM (BEAKER) (test code = 1.7 mg/dL 1.6-2.6 627) 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 Unit ID - FANTASMA [id number] 11:32:27 Test Item Value Reference Range Interpretation Comments PHOSPHORUS (BEAKER) (test code = 2.9 mg/dL 2.3-4.7 604) 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 ID - FANTASMA [id number] 11:21:21 Test Item Value Reference Range Interpretation [...] for patients with mechanical heart valves.LACTIC ACID, [id number] 11:20:59 Test Item Value Reference Range Interpretation Comments LACTATE BLOOD VENOUS (2) (BEAKER) 1.40 mmol/L 0.50-2.20 (test code = 2872) 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 ID - FANTASMA B Notes Date/Time Note Provider Source 2022-11-12 Formatting of this note might be differe nt from the original. Lorena Rogers MA [facility] 13:38:22-00:00 Received office notes from [facility] will put on Dr. Sy packer for review. Electronically signed by Lorena Rogers MA a t 11/12/2022 1:42 PM CDT"
[2022-11-20] MEDS ORDERED: NA CHLORIDE 0.9% 500 ML ONE (21:19)
[2022-11-20 21:27] LABS: Absolute Lymphocytes (CBC) 1.4 K/uL (0.7-4.9); Hematocrit 32.6 % (36.0-45.0); Lymphocytes % 20.3 % (15.3-44.8); MCV 88.7 fL (80-100); MPV 8.9 fL (7.6-11.3); Platelets 211 thou/uL (152-406); RBC Red Blood Cell Count 3.68 M/uL (3.86-4.86)
[2022-11-20 21:46] LABS: Protime INR 6.05
--- NOTE | 2022-11-20 21:52 | RAD REPORT ---
EXAM DESCRIPTION: RADChest Single View11/20/2022 9:27 pm CLINICAL HISTORY: CHEST PAIN COMPARISON: Chest Single View dated 11/01/2022; Chest Single View dated 10/14/2022; Chest Single View d ated 09/08/2022; Chest Single View dated 08/24/2022 TECHNIQUE: Portable AP view of the chest. FINDINGS: The lungs are clear. No pneumothorax or effusion. The cardiomediastinal contours are uncha nged, again with sequelae of prior CABG. IMPRESSION: No acute cardiopulmonary process.
[2022-11-20 21:53] LABS: Bilirubin Direct 0.2 mg/dL (0-0.2); Bilirubin Indirect, Calculated 0.4 mg/dL (0.2-0.8); Bilirubin Total 0.6 mg/dL (0.2-1.0); Magnesium 1.8 mg/dL (1.6-2.4); Potassium 3.5 mEq/L (3.5-5.1); Protein, Total 7.2 g/dL (6.4-8.2); Troponin High Sensitivity 5.8 pg/mL (<58.9)
--- NOTE | 2022-11-20 22:06 | RAD REPORT ---
EXAM DESCRIPTION: CT - Head Brain Wo Cont - 11/20/2022 9:34 pm CLINICAL HISTORY: CONFUSED COMPARISON: Head Brain Wo Cont dated 03/02/2019; Head Brain Wo Cont dated 04/20/2018 TECHNIQUE: Noncontrast head CT images were obtained without IV contrast. Multiplanar reformats were generated and reviewed. All CT scans are performed using dose optimization technique as appropriate and may include automated exposure control or mA/KV adjustment according to patient size. FINDINGS: No intracranial hemorrhage, mass, or edema. Midline structures are unremarkable. Normal ventricular caliber for age. Snider-white matter differentiation is preserved, without evidence of acute infarct. No abnormal extra- axial fluid collections. Mastoid air cells and visualized portions of the paranasal sinuses are clear. No acute bony findings. IMPRESSION: No evidence of an acute intracranial process.
[2022-11-21] MEDS ORDERED: ACETAMINOPHEN 500 MG TAB PO PRN (00:09)
[2022-11-21] MEDS ORDERED: ONDANSETRON 4 MG/2 ML VIAL IV PRN (00:09)
--- NOTE | 2022-11-21 00:16 | EDPHYS ---
Physician Documentation [facility] Name: Michelle Saavedra Age: 67 yrs Sex: Female : 1955 Arrival Date: 11/20/2022 Time: 20:25 Bed 6 Private MD: Shar Roa ED Physician Juan Yoder HPI: 11/20 20:38 This 67 yrs old Female presents to ER via Unassigned with complaints of sp4 Syncope, Dizziness, Fall Injury. 20:46 This 67 yrs old Female presents to ER via Wheelchair with complaints of sp4 Syncope, Dizziness, Fall Injury. 20:46 Patient is a 67-year-old female with extensive past medical history who presents with sp4 acute fall from home. Patient states just prior to arrival she felt unwell she passed out fell onto the floor and when she came back to her senses she remained on the floor until she was brought here by her relatives. . Patient appears somnolent in the triage office. Patient was recently admitted here 11/03/2022 and onto the 11/04/2022. Was managed for chest pains, atrial fibrillation, history of mechanical aortic valve replacement, chronic anticoagulation, subtherapeutic INR, chronic diastolic congestive heart failure, hypertension, hyperlipidemia, iron deficiency anemia. After ACS was ruled out patient was discharged home.. Patient's medications include alendronate, atorvastatin, furosemide, gabapentin, metoprolol, pantoprazole, zolpidem, aspirin, dofetilide, Zetia, [place], warfarin 2 mg p.o. daily. When patient was discharged she was advised to see porcelain slusher for workup of chronic iron deficiency anemia.. Historical: - Allergies: 20:46 Morphine; nj1 - PMHx: 20:46 Atrial fibrillation; Hypercholesterolemia; Hypertensive disorder; mechanical valve; nj1 - Immunization history:: Client reports having NOT received the Covid vaccine. - Social history:: Smoking status: Patient denies any tobacco usage or history of. - Family history:: not pertinent. ROS: 20:46 Constitutional: Negative for fever, chills, and weight loss, positive for syncope, sp4 positive fall at home Cardiovascular: Negative for chest pain, palpitations, and edema, positive for syncope 20:46 All other systems are negative. Exam: 20:46 Constitutional: This is a well developed, thin female, chronically ill-appearing, sp4 nontoxic, appears somnolent on arrival. Head/Face: Normocephalic, atraumatic. Eyes: Pupils equal round and reactive to light, extra-ocular motions intact. Lids and lashes normal. Conjunctiva and sclera are not injected. Cornea within normal limits. Periorbital areas with no swelling, redness, or edema. ENT: Nares patent. No nasal discharge, no septal abnormalities noted. Tympanic membranes are normal and external auditory canals are clear. Oropharynx with no redness, swelling, or masses, exudates, or evidence of obstruction, uvula midline. Mucous membranes moist. Neck: Trachea midline, no thyromegaly or masses palpated, and no cervical lymphadenopathy. Supple, full range of motion without nuchal rigidity, or vertebral point tenderness. Chest/axilla: Normal chest wall appearance and motion. Nontender with no deformity. No lesions are appreciated. Cardiovascular: Regular rate and rhythm with a normal S1 and S2. No gallops, murmurs, or rubs. Normal PMI, no JVD. No pulse deficits. Respiratory: Lungs have equal breath sounds bilaterally, clear to auscultation and percussion. No rales, rhonchi or wheezes noted. No increased work of breathing, no retractions or nasal flaring. Abdomen/GI: Soft, non-tender, with normal bowel sounds. No distension or tympany. No guarding or rebound. No evidence of tenderness throughout. Back: No spinal tenderness. No costovertebral tenderness. Skin: Warm, dry with normal turgor. Normal color with no rashes, no lesions, and no evidence of cellulitis. MS/ Extremity: Pulses equal, no cyanosis. Neurovascular intact. Full, normal range of motion. Neuro: Awake and alert, GCS 15, oriented to person, place, time, and situation. Cranial nerves II-XII grossly intact. Motor strength 5/5 in all extremities. Sensory grossly intact. Psych: Awake, alert, with orientation to person, place and time. Behavior, mood, and affect are within normal limits 11/21 00:06 ECG was reviewed by the Attending Physician. EKG time 2116, EKG reveals sinus sp4 bradycardia with premature atrial complexes at a rate of 48, no ST elevation or depression. There is no ventricular ectopy Vital Signs: 11/20 20:41 BP 114 / 82 LA; Pulse 70; Resp 16; Temp 99(TE); Pulse Ox 97% ; Weight 43.54 kg; Height nj1 5 ft. 0 in. ; 22:34 BP 118 / 57; Pulse 55; Resp 16 S; Pulse Ox 97% on R/A; lg3 23:36 Pulse 65; Resp 16; Pulse Ox 98% on R/A; jb4 11/21 00:56 BP 140 / 62; Pulse 73; Resp 16; Pulse Ox 100% on R/A; jb4 11/20 20:41 Body Mass Index 18.75 (43.54 kg, 152.4 cm) nj1 MDM: 11/20 21:22 Patient medically screened. sp4 11/21 00:06 Differential Diagnosis: cardiac arrhythmia, cerebrovascular accident, emotional sp4 response, idiopathic syncope, seizure, sepsis, vasovagal episode. Data reviewed: vital signs, nurses notes, old medical records, lab test result(s), EKG, radiologic studies, CT scan, plain films. 00:09 Consideration of Admission/Observation Escalation of care including sp4 admission/observation considered. ED course: CT negative for acute hemorrhage, patient has signs of renal insufficiency with elevated creatinine 1.7 also sign of dehydration probably heat exhaustion, elevated INR 6.05. Have asked internal medicine to admit patient for IV hydration and elevated INR which is coagulopathy. . 00:13 ED course: Will be admitted for elevated INR and over coagulation. Also acute sp4 dehydration volume depletion elevated creatinine and acute renal insufficiency. Also for assessment of syncope. . 11/20 20:46 Order name: Basic Metabolic Panel; Complete Time: 23:26 sp4 11/20 20:46 Order name: CBC with Diff; Complete Time: 23:26 sp4 11/20 20:46 Order name: LFT's; Complete Time: 23:26 sp4 11/20 20:46 Order name: Magnesium; Complete Time: 23:26 sp4 11/20 20:46 Order name: NT PRO-BNP; Complete Time: 23:26 sp4 11/20 20:46 Order name: PT-INR; Complete Time: 23:26 sp4 11/20 20:46 Order name: Troponin HS; Complete Time: 23:26 sp4 11/21 00:13 Order name: NT PRO-BNP EDMS 11/21 00:13 Order name: Basic Metabolic Panel EDMS 11/21 00:13 Order name: Basic Metabolic Panel EDMS 11/21 00:13 Order name: Basic Metabolic Panel EDMS 11/21 00:13 Order name: Basic Metabolic Panel EDMS 11/21 00:13 Order name: CBC with Automated Diff EDMS 11/21 00:13 Order name: Magnesium EDMS 11/21 00:13 Order name: CBC with Automated Diff EDMS 11/21 00:13 Order name: CBC with Automated Diff EDMS 11/21 00:13 Order name: CBC with Automated Diff EDMS 11/21 00:13 Order name: Magnesium EDMS 11/21 00:13 Order name: Magnesium EDMS 11/21 00:13 Order name: Magnesium EDMS 11/21 00:13 Order name: Protime (+INR) EDMS 11/21 00:13 Order name: Protime (+INR) EDMS 11/21 00:13 Order name: Protime (+INR) EDMS 11/21 00:13 Order name: Protime (+INR) EDMS 11/21 00:13 Order name: Protime (+INR) EDMS 11/20 20:46 Order name: XRAY Chest (1 view); Complete Time: 23:26 sp4 11/20 20:46 Order name: CT Head Brain wo Cont; Complete Time: 23:26 sp4 11/20 20:46 Order name: EKG; Complete Time: 20:46 sp4 11/21 00:13 Order name: Heart Healthy EDMS 11/20 20:46 Order name: Cardiac monitoring; Complete Time: 21:10 sp4 11/20 20:46 Order name: EKG - Nurse/Tech; Complete Time: 21:20 sp4 11/20 20:46 Order name: IV Saline Lock; Complete Time: 21:10 sp4 11/20 20:46 Order name: Labs collected and sent; Complete Time: 21:10 sp4 11/20 20:46 Order name: O2 Per Protocol; Complete Time: 21:10 sp4 11/20 20:46 Order name: O2 Sat Monitoring; Complete Time: 21:10 sp4 EC:06 Rate is 48 beats/min. Rhythm is irregular, Sinus arrythmia with PACs. QRS Independence is sp4 Normal. LA interval is normal. QRS interval is normal. QT interval is normal. T waves are Normal. Clinical impression: No evidence of ischemia. Interpreted by me. Administered Medications: 11/20 21:12 Drug: NS 0.9% IV 500 ml Route: IV; Rate: bolus; Site: right antecubital; lg3 11/21 00:40 Drug: [place] PO 10 mg-325 mg 1 tabs Route: PO; jb4 00:40 Drug: Ondansetron IVP 4 mg Route: IVP; Site: right antecubital; jb4 Disposition Summary: 11/21/22 00:15 Hospitalization Ordered Hospitalization Status: Inpatient Admission sp4 Provider: Cruz Sabillon4 [facility] sp4 Condition: Stable sp4 Problem: new sp4 Symptoms: have improved sp4 Bed/Room Type: Standard sp4 Room Assignment: 229(11/21/22 00:26) cg Diagnosis - Acute renal insufficiency, over coagulation, dehydration, volume depletion, sp4 syncope and collapse Forms: - Medication Reconciliation Form sp4 - SBAR form sp4 Signatures: Dispatcher [employer] Merary Zabala RN RN cg Ferny Chavis RN RN jb4 Maryam Shafer RN RN lg3 Juan Yoder MD MD sp4 Stephy Patel RN RN nj1 Corrections: (The following items were deleted from the chart) 00: 00:15 sp4 cg
--- NOTE | 2022-11-21 00:16 | ER ---
Nurse's Notes [facility] Name: Michelle Saavedra Age: 67 yrs Sex: Female : 1955 Arrival Date: 11/20/2022 Time: 20:25 Bed 6 Private MD: Shar Roa Diagnosis: Acute renal insufficiency, over coagulation, dehydration, volume depletion, syncope and collapse Presentation: 11/20 20:41 Chief complaint: Patient states: Fell twice today, states she couldn't get herself up. nj1 Pt falling asleep during triage. Coronavirus screen: Vaccine status: Patient reports being unvaccinated. Ebola Screen: Patient denies travel to an Ebola-affected area in the 21 days before illness onset. Initial Sepsis Screen: Does the patient meet any 2 criteria? No. Patient's initial sepsis screen is negative. Does the patient have a suspected source of infection? No. Patient's initial sepsis screen is negative. Risk Assessment: Do you want to hurt yourself or someone else? Patient reports no desire to harm self or others. Onset of symptoms was November 20, 2022. 20:41 Method Of Arrival: Wheelchair nj1 20:41 Acuity: JAKUB 3 nj1 Historical: - Allergies: 20:46 Morphine; nj1 - PMHx: 20:46 Atrial fibrillation; Hypercholesterolemia; Hypertensive disorder; mechanical valve; nj1 - Immunization history:: Client reports having NOT received the Covid vaccine. - Social history:: Smoking status: Patient denies any tobacco usage or history of. - Family history:: not pertinent. Screenin/09 01:35 [facility] ED Fall Risk Assessment (Adult) History of falling in the last 3 months, jb4 including since admission Yes- single mechanical fall (1 pt) Confusion or Disorientation No (0 pts) Score/Fall Risk Level 0 - 2 = Low Risk Oriented to surroundings, Maintained a safe environment. Abuse screen: Denies threats or abuse. Nutritional screening: No deficits noted. Tuberculosis screening: No symptoms or risk factors identified. Assessment: 11/20 21:00 General: Appears in no apparent distress. comfortable, Behavior is calm, cooperative, jb4 appropriate for age. Pain: Complains of pain in chest Pain does not radiate. Neuro: Level of Consciousness is awake, alert, obeys commands, Oriented to person, place, time, situation. Cardiovascular: Patient's skin is warm and dry. Rhythm is sinus bradycardia. Respiratory: Airway is patent Respiratory effort is even, unlabored, Respiratory pattern is regular, symmetrical. GI: No signs and/or symptoms were reported involving the gastrointestinal system. : No signs and/or symptoms were reported regarding the genitourinary system. EENT: No signs and/or symptoms were reported regarding the EENT system. Derm: Skin is intact, Skin is pink, warm \T\ dry. Musculoskeletal: Circulation, motion, and sensation intact. Range of motion: intact in all extremities. 22:33 Reassessment: Patient appears in no apparent distress at this time. No changes from lg3 previously documented assessment. Patient and/or family updated on plan of care and expected duration. Pain level reassessed. Patient is alert, oriented x 3, equal unlabored respirations, skin warm/dry/pink. General: pt quietly resting at this time . 23:36 Reassessment: Patient appears in no apparent distress at this time. Patient and/or jb4 family updated on plan of care and expected duration. Pain level reassessed. Patient is alert, oriented x 3, equal unlabored respirations, skin warm/dry/pink. 11/21 00:48 Reassessment: attempted report, nurse to call back. pf1 00:56 Reassessment: Patient appears in no apparent distress at this time. Patient and/or jb4 family updated on plan of care and expected duration. Pain level reassessed. Patient is alert, oriented x 3, equal unlabored respirations, skin warm/dry/pink. 01:35 Reassessment: Patient appears in no apparent distress at this time. Patient and/or jb4 family updated on plan of care and expected duration. Pain level reassessed. Patient is alert, oriented x 3, equal unlabored respirations, skin warm/dry/pink. Vital Signs: 11/20 20:41 BP 114 / 82 LA; Pulse 70; Resp 16; Temp 99(TE); Pulse Ox 97% ; Weight 43.54 kg; Height nj1 5 ft. 0 in. ; 22:34 BP 118 / 57; Pulse 55; Resp 16 S; Pulse Ox 97% on R/A; lg3 23:36 Pulse 65; Resp 16; Pulse Ox 98% on R/A; jb4 11/21 00:56 BP 140 / 62; Pulse 73; Resp 16; Pulse Ox 100% on R/A; jb4 11/20 20:41 Body Mass Index 18.75 (43.54 kg, 152.4 cm) nj1 ED Course: 11/20 20:28 Patient arrived in ED. am2 20:28 Shar Roa MD is Private Physician. am2 20:38 Juan Yoder MD is Attending Physician. sp4 20:45 Triage completed. nj1 20:46 Arm band placed on left wrist. nj1 21:00 No provider procedures requiring assistance completed. Initial lab(s) drawn, by ak, jb4 sent to lab. Inserted saline lock: 20 gauge in right antecubital area, using aseptic technique. Blood collected. 21:10 Ferny Chavis, RN is Primary Nurse. jb4 21:28 XRAY Chest (1 view) In Process Unspecified. EDMS 21:35 CT Head Brain wo Cont In Process Unspecified. EDMS 11/21 00:14 Cruz Sabillon MD is Hospitalizing Provider. sp4 01:35 Patient has correct armband on for positive identification. Bed in low position. Call jb4 light in reach. Side rails up X 1. 01:35 Patient admitted, IV remains in place. jb4 Administered Medications: 11/20 21:12 Drug: NS 0.9% IV 500 ml Route: IV; Rate: bolus; Site: right antecubital; lg3 11/21 00:40 Drug: [place] PO 10 mg-325 mg 1 tabs Route: PO; jb4 00:40 Drug: Ondansetron IVP 4 mg Route: IVP; Site: right antecubital; jb4 Medication: 01:35 VIS not applicable for this client. jb4 Outcome: 00:15 Decision to Hospitalize by Provider. sp4 01:35 Admitted to Med/surg accompanied by nurse, via wheelchair, room 229, with chart, Report jb4 called to PHILLIP Barrera 01:35 Condition: stable 01:35 Discharge instructions given to patient, Instructed on the need for admit, Demonstrated understanding of instructions. 01:36 Patient left the ED. jb4 Signatures: Dispatcher [employer] EDNC Ferny Chavis, RN RN jb4 Cadence Coombs am2 Maryam Shafer RN RN lg3 Babita Molina RN RN pf1 Juan Yoder MD MD sp4 Stephy Patel RN RN nj1
--- NOTE | 2022-11-21 00:29 | P.HP ---
Certification for Inpatient Patient admitted to: Inpatient With expected LOS: <2 Midnights Patient will require the following post-hospital care: None Practitioner: I am a practitioner with admitting privileges, knowledge of patient current condition, hospital course, and medical plan of care. Services: Services provided to patient in accordance with Admission requirements found in Title 42 Section 412.3 of the Code of Federal Regulations Patient History Date of Service: 11/21/22 Reason for admission: Syncope History of Present Illness: 67-year-old female with history of paroxysmal atrial fibrillation, hypertension, hyperlipidemia, chronic diastolic congestive heart failure, anemia, mechanical aortic valve on longstanding warfarin presents to the emergency department chief complaint of syncope. She reports fall on floor, found on floor by family, reports loss of consciousness, reports mild confusion after fall. She is more alert, on exam, oriented x 3, no focal deficits. She reports headache, she denies focal deficits, no slurred speech, she denies worse headache of her life, she reports not having air air conditioning in her house, reports moderate heat exhaustion. She denies chest pain, palpitations, slurred speech, nausea, vomiting. Plan to admit for syncope, fall, acute cystitis, ER lab evaluation supratheraputic INR, 6.05, PT 66.5, CMP Bun 20, Cr 1.74, est GFR 31, CBC normocytic anemia HH 10.4, 32.6, BNP 407, Head CT IMPRESSION: No evidence of an acute intracranial process.CXR IMPRESSION: No acute cardiopulmonary process Allergies morphine Allergy (Intermediate, Verified 10/19/22 08:13) panic ATTACK; shaking Home Medications: Alendronate Sodium 70 mg PO EVERY 7TH DAY 12/25/21 Atorvastatin Calcium 80 mg PO BEDTIME 12/25/21 Furosemide [Lasix*] 20 mg PO DAILY 12/25/21 Gabapentin 300 mg PO TID 12/25/21 Metoprolol Tartrate [Lopressor*] 25 mg PO BID 12/25/21 Pantoprazole [Protonix Tab*] 40 mg PO BID 12/25/21 Zolpidem Tartrate [Ambien*] 10 mg PO BEDTIME 12/25/21 Aspirin [Aspirin EC 81 MG] 81 mg PO DAILY #30 tab 03/28/22 Dofetilide 125 mcg PO BID 08/21/22 Ezetimibe [Zetia*] 10 mg PO DAILY 08/21/22 Hydrocodone Bit/Acetaminophen [Hydrocodon-Acetaminoph 7.5-325] 1 each PO BID PRN 08/21/22 Warfarin Sodium 2 mg PO DAILY 08/21/22 - Past Medical/Surgical History Diabetic: No -: Atrial fibrillation/mechanical aortic valve on warfarin -: Hyperlipidemia -: HTN -: Chronic diastolic congestive heart failure -: GERD -: mechanical aortic valve -: palpitations -: Thoracic aortic aneurysm -: Chronic diastolic congestive heart failure -: HLD -: anemia -: AFIB with RVR -: aortic valve replacement -: cardioversion -: tubal ligation Psychosocial/ Personal History: Patient lives at home with her children - Family History Brother -: Heart disease, Cancer Notes: heart attack Mother -: Heart disease, Diabetes Notes: of heart attack Father -: Heart disease Notes: of heart attack Sister -: Heart disease, Diabetes, Cancer Notes: sisters x2 - DM. sister x1 - heart attack. sister- lung cancer - Social History Alcohol use: No CD- Drugs: No Caffeine use: No Review of Systems 10-point ROS is otherwise unremarkable Physical Examination - Physical Exam General: Alert, In no apparent distress, Oriented x3 HEENT: Atraumatic, Normocephalic, PERRLA Neck: 2+ carotid pulse no bruit, JVD not distended Respiratory: Clear to auscultation bilaterally, Normal air movement Cardiovascular: No edema, Normal pulses Capillary refill: <2 Seconds Gastrointestinal: Normal bowel sounds, Soft and benign Musculoskeletal: No clubbing, No swelling Integumentary: No rashes, No breakdown Neurological: Normal strength at 5/5 x4 extr, Cranial nerves 3-12 intact - Studies Laboratory Data (last 24 hrs) 11/20/22 11/20/22 11/20/22 21:00 21:00 21:00 WBC 7.00 Hgb 10.4 L Hct 32.6 L Plt Count 211 PT 66.5 H INR 6.05 H* Sodium 141 Potassium 3.5 BUN 20 H Creatinine 1.74 H Glucose 105 Magnesium 1.8 Total Bilirubin 0.6 AST 30 ALT 31 Alkaline Phosphatase 75 Assessment and Plan - Plan Assessment/Plan Syncope (could be related to Sinus Bradycardia) Fall Sinus Marv, arrhythmia EKG HR 40's-50's (on beta blockers) subtherapeutic INR 6 Chronic anticoagulation History of atrial fibrillation/mechanical aortic valve repair on chronic anticoagulation Chronic diastolic congestive heart failure hypertension Hyperlipidemia normocytic anemia Assessment/Plan Syncope Fall card consult, tele Fall precautions CT of head neg, monitor of s/s ICH PT eval. orthostatic bp subtherapeutic INR 6 hold AC, afib on coumadin Sinus Marv EKG HR 40's-50's hold next dose metoprolol HX History of atrial fibrillation/mechanical aortic valve repair on chronic anticoagulation with warfarinsubtherapeutic INR Daily INR, Chronic diastolic congestive heart failure Compensated, continue home medications BNP 407 hypertension Hyperlipidemia normocytic anemia HH 10.4, 32.6, BNP 407 Continue home medications. DVT PPX: SCD Code status: Full Discharge Plan: Home Plan to discharge in: 48 Hours Discharge Plan: Home Plan to discharge in: 48 Hours - Advance Directives Does patient have a Living Will: No Does patient have a Durable POA for Healthcare: No - Code Status/Comfort Care Code Status: Full Code Physician Review: Patient Assessed, Agree with Above Assessment and Plan Critical Care: No Time Spent Managing Pts Care (In Minutes): 50
[2022-11-21] MEDS ORDERED: HYDROCODONE/APAP 10/325 TAB ONE (00:36)
[2022-11-21] MEDS ORDERED: ONDANSETRON 4 MG/2 ML VIAL ONE (00:37)
[2022-11-21 01:47] VITALS: O2SAT 98; BMI 17.3
[2022-11-21 03:39] LABS: Protime INR 6.75
[2022-11-21] MEDS: HYDROMORPHONE HCL 0.5 MG/0.5 ML INJ IV PRN ×4 (11:06→23:35)
--- NOTE | 2022-11-21 18:08 | EKG ---
Test Date: 2022-11-20 Test Time: 21:17:28 Manager Behavior: SUMMER MEASUREMENT RESULTS: Intervals: Rate: 48 [place]: 200 QRSD: 110 QT: 520 QTc: 464 [place]: P: 77 [place]: 200 QRS: 42 T: 46 INTERPRETIVE STATEMENTS: Marked sinus bradycardia with premature atrial complexes ST abnormality, possible digitalis effect Abnormal ECG Compared to ECG 11/01/2022 18:56:47 Atrial premature complex(es) now present ST (T wave) deviation still present Electronically Signed On 11-21-22 18:06:45 CDT by Jam Bolanos
[2022-11-21 19:47] LABS: Potassium 4.1 mEq/L (3.5-5.1)
--- NOTE | 2022-11-21 22:41 | CON ---
Date of Consultation: 11/21/2022 Reason For Consultation: Syncope. History Of Present Illness: This is a 67-year-old female with history of paroxysmal atrial fibrillat ion, hypertension, dyslipidemia, diastolic heart failure, and mechanical aortic valve, on Coumadin, p resented with syncopal episode. Basically, this patient has been without air conditioning for about 2 months and claimed that prior to presenting to the emergency room, she was very hot, sweating profo undly, and then from standing position, felt dizzy suddenly and collapsed on the floor for a short pe riod of time. Denies having any chest pain or shortness of breath. Past Medical History: As outlined above in HPI. Medications: Refer reconciliation sheet for detailed list. Allergies: MORPHINE. Family History: No premature coronary artery disease or cancer. Social History: She does not smoke or drink. Does not use any drugs. Review of Systems: All systems reviewed and they are negative, except as mentioned in the HPI. Physical Examination: Vital Signs: Reviewed. Her presenting blood pressure was 114/82. Today's blood pressure is 135/58, heart rate 74, breathing at 15, temperature is 98.0. General: Pleasant elderly female, in no apparent distress. Head and Neck: Pupils are equal, reactive to light. Intact eye movement. No JVD. No cervical lymp hadenopathy. Neck: Supple. Thyroid is not enlarged. Lungs: Clear to auscultation bilaterally. No rhonchi, rales, or crackles. No accessory muscle use. Heart: Regular rate and rhythm. No extra sounds. Abdomen: Soft, nontender. Bowel sounds positive. No organomegaly. No masses or hernia. No rigidi ty or rebound. Extremities: No edema, clubbing, cyanosis. Intact pulses. Skin: No rashes. Neurologic: Alert, awake, oriented x3. No acute focal deficits appreciated. Investigations: BUN 20, creatinine 1.74, and hemoglobin is 10.4. Assessment/recommendation: 1.Syncope, likely due to hypotension. The patient was living in a very hot environment without AC f or a long time. When she came in, she was definitely dehydrated. BUN and creatinine are elevated. Recommend IV fluid management gently and monitor on telemetry and also given the fact that she has a mechanical aortic valve, I recommend echocardiogram to evaluate the mechanical prosthesis to rule out as the cause of her syncope. 2.Aortic valve replacement with mechanical prosthesis. Continue on Coumadin once her INR drops betw een 2 and 3. At the present time, Coumadin is on hold due to supratherapeutic INR. Repeat INR tomor row and recheck. 3.Acute renal failure and she is status post hydration. Repeat basic metabolic panel today. SR/MODL Voice ID: [id number] Report ID: [id number]
[2022-11-22 03:32] LABS: Hematocrit 27.2 % (36.0-45.0); Lymphocytes % 14.8 % (15.3-44.8); MCV 89.3 fL (80-100); MPV 9.1 fL (7.6-11.3); Platelets 150 thou/uL (152-406); RBC Red Blood Cell Count 3.04 M/uL (3.86-4.86)
[2022-11-22 03:33] LABS: Absolute Lymphocytes (CBC) 1.1 K/uL (0.7-4.9)
[2022-11-22] MEDS: HYDROMORPHONE HCL 0.5 MG/0.5 ML INJ IV PRN ×2 (03:36→08:06)
[2022-11-22 03:40] LABS: Protime INR 5.43
[2022-11-22 03:43] LABS: Magnesium 1.8 mg/dL (1.6-2.4); Potassium 3.7 mEq/L (3.5-5.1)
[2022-11-22] MEDS ORDERED: MAGNESIUM SULFATE 1 gm IVPB 1 GM/100 ML BAG IV ONE (09:00)
[2022-11-22] MEDS ORDERED: POTASSIUM CL SA 10 MEQ TAB PO ONE (09:00)
[2022-11-22 09:41] VITALS: BP 127/51; TEMP 98.1
--- NOTE | 2022-11-22 16:06 | PN ---
Date of Progress Note: 11/22/2022 Subjective: Seen by bedside. No new complaints. Review of Systems: No chest pain, shortness of breath, orthopnea, cough. No nausea, vomiting, diarrhea. All other syst ems reviewed are negative. Objective: Vital Signs: Reviewed. Head and Neck: Pupils are equal, reactive to light. Intact eye movements. No JVD. No cervical lym phadenopathy. Neck is supple. Thyroid is not enlarged. Lungs: Clear to auscultation bilaterally. No rhonchi, wheezing, or crackles. No accessory muscle u se. Heart: Regular rate and rhythm with a systolic murmur, diffuse. Abdomen: Soft, nontender. Bowel sounds positive. No organomegaly. No masses or hernia. No rigidi ty or rebound. Extremities: No edema, clubbing, cyanosis. Intact pulses. Skin: No rashes. Neurologic: Alert, awake, oriented x3. No acute focal deficits appreciated. Investigations: BUN 14, creatinine is 0.94, and hemoglobin is 8.7. Assessment/recommendations: 1.Syncope due to severe dehydration and she is doing much better after fluid replacement. 2.Acute renal failure due to dehydration and this has resolved. 3.Mechanical aortic valve appears to be functioning very well on echo. Follow up with her primary c ardiologist post discharge. Then, cardiology will sign off. SR/MODL Voice ID: [id number] Report ID: [id number]
--- NOTE | 2022-11-23 08:46 | ECHO ---
HEIGHT: 5 ft 3 in WEIGHT: 98 lb 0 oz DATE OF STUDY: 11/22/[address]: Jam Bolanos 2-DIMENSIONAL: YES M.MODE: YES DOPPLER: YES COLOR FLOW: YES TDS: PORTABLE: YES DEFINITY: BUBBLE STUDY: DIAGNOSIS: AORTIC VALVE REPLACEMENT CARDIAC HISTORY: CATHERIZATION: NO SURGERY: YES PROSTHETIC VALVE: YES PACEMAKER: NO MEASUREMENTS (cm) DIASTOLIC (NORMALS) SYSTOLIC (NORMALS) IVSd 1.1 (0.6-1.2) LA Diam 3.7 (1.9-4.0) LVEF 79% LVIDd 3.7 (3.5-5.7) LVIDs 2.0 (2.0-3.5) %FS 47% LVPWd 1.2 (0.6-1.2) Ao Diam 2.3 (2.0-3.7) 2 DIMENSIONAL ASSESSMENT: RIGHT ATRIUM: NORMAL LEFT ATRIUM: ENLARGED RIGHT VENTRICLE: NORMAL LEFT VENTRICLE: NORMAL TRICUSPID VALVE: MODERATE TRICUSPID REGURGITATION MITRAL VALVE: MILD MITRAL REGURGITATION PULMONIC VALVE: MILD PULMONIC INSUFFICIENCY AORTIC VALVE: MECHANICAL PROSTHESIS PERICARDIAL EFFUSION: NONE AORTIC ROOT: NORMAL LEFT VENTRICULAR WALL MOTION: NORMAL DOPPLER/COLOR FLOW: SEE BELOW COMMENTS: 1. NORMAL LEFT VENTRICULAR EJECTION FRACTION GREATER THAN 60% (HYPERDYNAMIC) 2. NORMAL WALL MOTION 3. LEFT ATRIAL ENLARGEMENT 4. AORTIC MECHANICAL PROSTHESIS IS SEEN FUNCTIONING WELL WITH DIMENSIONALESS INDEX OF 0.6 5. MODERATE TRICUSPID 6. MILD MITRAL REGURGITATION 7. MILD PULMONIC INSUFFICIENCY 8. MILD AORTIC INSUFFICIENCY TECHNOLOGIST: MIREILLE DELATORRE
== END 2022-11-22 11:00 | disposition home health service (06) | DRG 641 ==
LOC: ER 20:25 → 2ND 11-21 00:01
PROVIDERS: ADMIT Hospitalist; ATTEND Hospitalist
DX: E86.0 Dehydration (principal); I50.32 Chronic diastolic (congestive) heart failure; D68.9 Coagulation defect, unspecified; N30.00 Acute cystitis without hematuria; N17.9 Acute kidney failure, unspecified; I11.0 Hypertensive heart disease with heart failure; I48.0 Paroxysmal atrial fibrillation; E78.5 Hyperlipidemia, unspecified; D50.9 Iron deficiency anemia, unspecified; E86.9 Volume depletion, unspecified; E78.00 Pure hypercholesterolemia, unspecified; Z88.5 Allergy status to narcotic agent; Z95.2 Presence of prosthetic heart valve; Z98.51 Tubal ligation status; Z79.01 Long term (current) use of anticoagulants; Z79.82 Long term (current) use of aspirin; Z79.899 Other long term (current) drug therapy; Z28.310 Unvaccinated for COVID-19; W18.30XA Fall on same level, unspecified, initial encounter; Y93.9 Activity, unspecified; Y99.9 Unspecified external cause status; Y92.9 Unspecified place or not applicable
CPT/HCPCS: 36415; 70450; 71045; 80048; 80076; 83735; 83880; 84484; 85025; 85610; 93005; 93306; 96374; 97161; 99285; J1170; J2405; J3475; J7040

== ENCOUNTER 2022-12-10 22:45 | Emergency (ER) | payer OTHER ==
--- OUTSIDE RECORDS SUMMARY | 2022-12-10 23:29 | XMS REPORT | Continuity of Care Document ---
:1955 Author Organization [facility] t Address [address] [address] [place] [address] Care Team Providers Name Role Phone Daniel Ibrahim Primary Care Physician DANIEL IBRAHIM Attending Clinician Unavailable Saurabh Dobson Attending Clinician Unavailable MARIIA CARDONA Attending Clinician Unavailable MARIIA CARDONA Attending Clinician Unavailable REBECA HOLCOMB Attending Clinician Unavailable REBECA HOLCOMB Attending Clinician Unavailable JAMAICA DAN Attending Clinician Unavailable Jamaica Dan MD Attending Clinician Doctor Unassigned, [place] Attending Clinician Unavailable WAYNE RABAGO Attending Clinician Unavailable Pob, [facility] Attending Clinician Unavailable Yolande Santacruz MD Attending Clinician JOSEPH CORTES Attending Clinician Unavailable Joseph Cortes MD Attending Clinician Isaak FISHER, Jeremy Ricardo Attending Clinician Unavailable Wayne Rabago MD Attending Clinician MEAGHAN MONTANA Attending Clinician Unavailable Sean Graham MD Attending Clinician [phone] Adhi MD, Vinayak Nathan Attending Clinician Lynnette LOVELL, Shadi Jhaveri Attending Clinician [phone] Latasha LOVELL, Franc Calles Attending Clinician Angela LOVELL, Purnima Attending Clinician Benedicto LOVELL, Benjamin Attending Clinician Rubén LOVELL, Meaghan Reilly Attending Clinician 1, [facility] Attending Clinician Unavailable YOLANDE SANTACRUZ Attending Clinician Unavailable Franco FISHER, Georgie Attending Clinician Unavailable Josemanuel LOVELL, Carmen Attending Clinician Ricky RODRÍGUEZ Attending Clinician Unavailable Ricky Ibarra Attending Clinician JOSE VILLA Attending Clinician Unavailable Daisy WAHLPJose Attending Clinician CALEB RODRIGUES Attending Clinician [...] Type Policy Number Effective Date Expiration Date Anais ham[facility] DUAL [id number] 2020 COMP HMO D SNP 00:00:00 FORMERLY [facility] [id number] 2013 PLUS 00:00:00 [employer] MEDICARE [id number] 2020 00:00:[address] 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 00:00: [place] with with 00 Medical preserved preserved Bran [...] loss 2-07 Yady kes anemia anemia 00:00: [facility] 00 Center Suprathera Suprathera Disease [...] 8-11 it y of on on 00:00: [place] 00 Medical Branch E44.0 E44.0 Disease Active 2020-04 Univers Moderate Moderate 1-19 ity of protein protein 00:00: [place] calorie calorie 00 Medical malnutriti malnutriti Br anch on on Other Other Disease Active 2020-04 Univers chest pain chest pain 1-19 it y of 00:00: [place] 00 Medical Branch Chest pain Chest pain [...] 8-20 it y of emia emia 00:00: [place] 00 Medical Branch Essential Essential Disease Active Uni vers hypertensi hypertensi 8-20 it y of on on 00:00: [place] [facility] Anticoagul Anticoagul Disease Active U sylvesterers ated ated 8-20 ity of 00:00: [place] 00 Medical Branch Coronary Coronary Disease Active Unive rs artery artery 8-20 ity of disease disease 00:00: [place] involving involving 00 Medi tyrone tangirnaq tangirnaq Branch coronary coronary artery of artery of tangirnaq tangirnaq 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 8-20 ity of disease disease 00:00: [place] involving involving 00 Medi tyrone tangirnaq tangirnaq Branch coronary coronary artery of artery of tangirnaq tangirnaq 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 2-20 ity of disease disease 00:00: [place] involving involving 00 Medi tyrone tangirnaq tangirnaq Branch heart heart without without angina angina [...] Date Source Natural mother Diabetes [facility] Natural mother Heart [facility] Other Diabetes [facility] Natural sister Cancer [facility] Natural sister Diabetes [facility] Social History Social Habit Start Date Stop Date Quantity Comments Source History SDOH Social Unive rsity of Connections [facility] Med ical Together Branch History SDOH Social Unive rsity of Connections [facility] Medical Branch History SDOH Social Unive rsity of Connections [place] [facility] Membership Branch History SDOH Social Unive rsity of Connections [place] [facility] Meetings Branch Gender identity Universit y [facility] Sexual orientation Univer [facility] Medical [place] Exposure to 2022-08-18 2022-08-28 Not sure University of SARS-CoV-2 (event) 00:00:00 12:47:00 [place] [facility] History SDOH 2022-06-07 2022-06-07 1 University o f Alcohol Frequency 00:00:00 00:00:00 [place] M edical Branch History SDOH 2022-06-07 2022-06-07 0 University o f Alcohol Std Drinks 00:00:00 00:00:00 [place] [facility] History SDOH 2022-06-07 2022-06-07 1 University o f Alcohol Binge 00:00:00 00:00:00 [place] Medic al Branch History SDOH Social 2022-06-07 2022-06-07 5 Unive rsity of Connections Phone 00:00:00 00:00:00 [place] M edical Branch History SDOH Social 2022-06-07 2022-06-07 4 Unive rsity of Connections Living 00:00:00 00:00:00 [place] [facility] History SDDC 2022-06-07 2022-06-07 0 University o f Physical Activity 00:00:00 00:00:00 [facility] edical DPW Branch History SDDC 2022-06-07 2022-06-07 0 University o f Physical Activity 00:00:00 00:00:00 [facility] edical MPS Branch History SDDC 2022-06-07 2022-06-07 5 University o f Financial 00:00:00 00:00:00 [place] [facility] History SDOH Food 2022-06-07 2022-06-07 1 Univers ity of Worry 00:00:00 00:00:00 [place] [facility] History SDOH Food 2022-06-07 2022-06-07 1 Univers ity of Scarcity 00:00:00 00:00:00 [place] [facility] History SDDC 2022-06-07 2022-06-07 2 University o f Transport Med 00:00:00 00:00:00 [place] Medic al Branch History SDDC 2022-06-07 2022-06-07 2 University o f Transport Non-Med 00:00:00 00:00:00 [facility] edical Branch Education 2022-06-06 2022-06-06 14 University of 00:00:00 00:00:00 [facility] Branch Tobacco use and 2022-06-06 2022-06-06 Smokeless Universit y of exposure 00:00:00 00:00:00 tobacco non-user [facility] dical Branch Alcohol intake 2022-05-19 2022-05-19 Ex-drinker [facility] 00:00:00 00:00:00 (finding) Medical Center History [facility] 2022-05-18 2022-05-[address] [facility] Unable to 00:00:00 00:00:00 Medical Center Pay History [facility] 2022-05-18 2022-05-[address] [facility] Places 00:00:00 00:00:00 Medical Ce nter Lived History [facility] 2022-05-18 2022-05-[address] [facility] Homeless 00:00:00 00:00:00 Medical Center Last Year History of Social 2021-02-27 2021-02-27 Univers ity of function 00:00:00 00:00:00 [facility] Sex Ass[birth year] At [birth year] Alfonso Sanches 00:00:00 00:00:00 Medical Center Smoking Status Start Date Stop Date Source Never smoked tobacco [facility] Medications Ordered Filled Start Stop Current Ordering Indication Dosage Frequency Signature Comments Components Source Medication Medication Date Date Medication? Clinician (SIG) Name Name atorsakshitajade 0 Yes 80mg Take 1 Univ ers n 80 mg 7-12 tablet by ity of tablet 00:00: mouth at [place] [address] bedtime. Medical Branch atorvastati 2022-0 Yes 80mg Take 1 Univ ers n 80 mg 7-12 tablet by ity of tablet 00:00: mouth at [place] [address] bedtime. Medical Branch atorvastati 2022-0 Yes 80mg Take 1 Univ ers n 80 mg 7-12 tablet by ity of tablet 00:00: mouth at [place] [address] bedtime. Medical Branch atorvastati 2022-0 Yes 80mg Take 1 Univ ers n 80 mg 7-12 tablet by ity of tablet 00:00: mouth at [place] [address] bedtime. Medical Branch atorvastati 2022-0 Yes 80mg Take 1 Univ ers n 80 mg 7-12 tablet by ity of tablet 00:00: mouth at [place] [address] bedtime. Medical Branch atorvastati 2022-0 Yes 80mg Take 1 Univ ers n 80 mg 7-12 tablet by ity of tablet 00:00: mouth at [place] [address] bedtime. Medical Branch atorvastati 2022-0 Yes 80mg Take 1 Univ ers n 80 mg 7-12 tablet by ity of tablet 00:00: mouth at [place] [address] bedtime. Medical Branch atorvastati 2022-0 Yes 80mg Take 1 Univ ers n 80 mg 7-12 tablet by ity of tablet 00:00: mouth at [place] [address] bedtime. Medical Branch atorvastati 2022-0 Yes 80mg Take 1 Univ ers n 80 mg 7-12 tablet by ity of tablet 00:00: mouth at [place] [address] bedtime. Medical Branch atorvastati 2022-0 Yes 80mg Take 1 Univ ers n 80 mg 7-12 tablet by ity of tablet 00:00: mouth at [place] [address] bedtime. Medical Branch atorvastati 2022-0 Yes 80mg Take 1 Univ ers n 80 mg 7-12 tablet by ity of tablet 00:00: mouth at [place] [address] bedtime. Medical Branch atorvastati 2022-0 Yes 80mg Take 1 Univ ers n 80 mg 7-12 tablet by ity of tablet 00:00: mouth at [place] [address] bedtime. Medical Branch atorvastati 2022-0 Yes 80mg Take 1 Univ ers n 80 mg 7-12 tablet by ity of tablet 00:00: mouth at [place] bedtime. Medical Branch atorvastati 2022-0 Yes 80mg Take 1 Univ ers n 80 mg 7-12 tablet by ity of tablet 00:00: mouth at [place] [address] bedtime. Medical Branch atorvastati 2022-0 Yes 80mg Take 1 Univ ers n 80 mg 7-12 tablet by ity of tablet 00:00: mouth at [place] [address] bedtime. Medical Branch atorvastati 2022-0 Yes 80mg Take 1 Univ ers n 80 mg 7-12 tablet by ity of tablet 00:00: mouth at [place] [address] bedtime. Medical Branch atorvastati 2022-0 Yes 80mg Take 1 Univ ers n 80 mg 7-12 tablet by ity of tablet 00:00: mouth at [place] [address] bedtime. Medical Branch atorvastati 2022-0 Yes 80mg Take 1 Univ ers n 80 mg 7-12 tablet by ity of tablet 00:00: mouth at [place] [address] bedtime. Medical Branch atorvastati 2022-0 Yes 80mg Take 1 Univ ers n 80 mg 7-12 tablet by ity of tablet 00:00: mouth at [place] [address] bedtime. Medical Branch atorvastati 2022-0 Yes 80mg Take 1 Univ ers n 80 mg 7-12 tablet by ity of tablet 00:00: mouth at [place] [address] bedtime. Medical Branch warfarin 1 2022-0 Yes [id number] 2mg Take 2 Univers mg tablet 7-07 tablets by ity of 00:00: mouth [place] every Medical evening. Branch Take 1mg x3 days, then 2mg x 4 days warfarin 1 2022-0 Yes [id number] 2mg Take 2 Univers mg tablet 7-07 tablets by ity of 00:00: mouth [place] every Medical evening. Branch Take 1mg x3 days, then 2mg x 4 days warfarin 1 3-0 Yes [id number] 2mg Take 2 Univers mg tablet 7-07 tablets by ity of 00:00: mouth [place] 00 every Medical evening. Branch Take 1mg x3 days, then 2mg x 4 days warfarin 0 Yes [id number] 2mg Take 2 Univers mg tablet 7-07 tablets by ity of 00:00: mouth [place] 00 every Medical evening. Branch Take 1mg x3 days, then 2mg x 4 days warfarin Yes [id number] 2mg Take 2 Univers mg tablet 7-07 tablets by ity of 00:00: mouth [place] 00 every Medical evening. Branch Take 1mg x3 days, then 2mg x 4 days warfarin Yes [id number] 2mg Take 2 Univers mg tablet 7-07 tablets by ity of 00:00: mouth [place] 00 every Medical evening. Branch Take 1mg x3 days, then 2mg x 4 days warfarin Yes [id number] 2mg Take 2 Univers mg tablet 7-07 tablets by ity of 00:00: mouth [place] 00 every Medical evening. Branch Take 1mg x3 days, then 2mg x 4 days warfarin Yes [id number] 2mg Take 2 Univers mg tablet 7-07 tablets by ity of 00:00: mouth [place] 00 every Medical evening. Branch Take 1mg x3 days, then 2mg x 4 days warfarin Yes [id number] 2mg Take 2 Univers mg tablet 7-07 tablets by ity of 00:00: mouth [place] 00 every Medical evening. Branch Take 1mg x3 days, then 2mg x 4 days warfarin 0 Yes [id number] 2mg Take 2 Univers mg tablet 7-07 tablets by ity of 00:00: mouth [place] 00 every Medical evening. Branch Take 1mg x3 days, then 2mg x 4 days warfarin 0 Yes [id number] 2mg Take 2 Univers mg tablet 7-07 tablets by ity of 00:00: mouth [place] 00 every Medical evening. Branch Take 1mg x3 days, then 2mg x 4 days warfarin 0 Yes [id number] 2mg Take 2 Univers mg tablet 7-07 tablets by ity of 00:00: mouth [place] 00 every Medical evening. Branch Take 1mg x3 days, then 2mg x 4 days warfarin 1 Yes [id number] 2mg Take 2 Univers mg tablet 7-07 tablets by ity of 00:00: mouth [place] 00 every Medical evening. Branch Take 1mg x3 days, then 2mg x 4 days warfarin Yes [id number] 2mg Take 2 Univers mg tablet 7-07 tablets by ity of 00:00: mouth [place] 00 every Medical evening. Branch Take 1mg x3 days, then 2mg x 4 days warfarin Yes [id number] 2mg Take 2 Univers mg tablet 7-07 tablets by ity of 00:00: mouth [place] 00 every Medical evening. Branch Take 1mg x3 days, then 2mg x 4 days warfarin Yes [id number] 2mg Take 2 Univers mg tablet 7-07 tablets by ity of 00:00: mouth [place] 00 every Medical evening. Branch Take 1mg x3 days, then 2mg x 4 days warfarin Yes [id number] 2mg Take 2 Univers mg tablet 7-07 tablets by ity of 00:00: mouth [place] 00 every Medical evening. Branch Take 1mg x3 days, then 2mg x 4 days warfarin Yes [id number] 2mg Take 2 Univers mg tablet 7-07 tablets by ity of 00:00: mouth [place] 00 every Medical evening. Branch Take 1mg x3 days, then 2mg x 4 days warfarin Yes [id number] 2mg Take 2 Univers mg tablet 7-07 tablets by ity of 00:00: mouth [place] 00 every Medical evening. Branch Take 1mg x3 days, then 2mg x 4 days warfarin Yes [id number] 2mg Take 2 Univers mg tablet 7-07 tablets by ity of 00:00: mouth [place] 00 every Medical evening. Branch Take 1mg x3 days, then 2mg x 4 days warfarin Yes [id number] 2mg Take 2 Univers mg tablet 7-07 tablets by ity of 00:00: mouth [place] 00 every Medical evening. Branch Take 1mg x3 days, then 2mg x 4 days ezetimibe 0 Yes [id number] 10mg Take 1 U nivers (ZETIA) 10 4-18 tablet by ity of mg tablet 00:00: mouth [place] 00 the Medical morning. Branch ezetimibe 2023-0 Yes [id number] 10mg Take 1 U nivers (ZETIA) 10 4-18 tablet by ity of mg tablet 00:00: [place] 00 the Medical morning. Branch ezetimibe 2023-0 Yes [id number] 10mg Take 1 U nivers (ZETIA) 10 4-18 tablet by ity of mg tablet 00:00: [place] 00 the Medical morning. Branch ezetimibe 2023-0 Yes [id number] 10mg Take 1 U nivers (ZETIA) 10 4-18 tablet by ity of mg tablet 00:00: [place] 00 the Medical morning. Branch ezetimibe 2023-0 Yes [id number] 10mg Take 1 U nivers (ZETIA) 10 4-18 tablet by ity of mg tablet 00:00: [place] 00 the Medical morning. Branch ezetimibe 2023-0 Yes [id number] 10mg Take 1 U nivers (ZETIA) 10 4-18 tablet by ity of mg tablet 00:00: [place] 00 the Medical morning. Branch ezetimibe 2023-0 Yes [id number] 10mg Take 1 U nivers (ZETIA) 10 4-18 tablet by ity of mg tablet 00:00: mouth [place] 00 the Medical morning. Branch ezetimibe 2023-0 Yes [id number] 10mg Take 1 U nivers (ZETIA) 10 4-18 tablet by ity of mg tablet 00:00: mouth [place] 00 the Medical morning. Branch ezetimibe 2023-0 Yes [id number] 10mg Take 1 U nivers (ZETIA) 10 4-18 tablet by ity of mg tablet 00:00: [place] 00 the Medical morning. Branch ezetimibe 2023-0 Yes [id number] 10mg Take 1 U nivers (ZETIA) 10 4-18 tablet by ity of mg tablet 00:00: [place] 00 the Medical morning. Branch ezetimibe 2023-0 Yes [id number] 10mg Take 1 U nivers (ZETIA) 10 4-18 tablet by ity of mg tablet 00:00: mouth [place] 00 the Medical morning. Branch ezetimibe 2023-0 Yes [id number] 10mg Take 1 U nivers (ZETIA) 10 4-18 tablet by ity of mg tablet 00:00: mouth [place] 00 the Medical morning. Branch ezetimibe 2023-0 Yes [id number] 10mg Take 1 U nivers (ZETIA) 10 4-18 tablet by ity of mg tablet 00:00: mouth [place] 00 the Medical morning. Branch ezetimibe 2023-0 Yes [id number] 10mg Take 1 U nivers (ZETIA) 10 4-18 tablet by ity of mg tablet 00:00: mouth [place] 00 the Medical morning. Branch ezetimibe 2023-0 Yes [id number] 10mg Take 1 U nivers (ZETIA) 10 4-18 tablet by ity of mg tablet 00:00: mouth [place] 00 the Medical morning. Branch ezetimibe 2023-0 Yes [id number] 10mg Take 1 U nivers (ZETIA) 10 4-18 tablet by ity of mg tablet 00:00: mouth [place] 00 the Medical morning. Branch ezetimibe 2023-0 Yes [id number] 10mg Take 1 U nivers (ZETIA) 10 4-18 tablet by ity of mg tablet 00:00: mouth [place] 00 the Medical morning. Branch ezetimibe 2023-0 Yes [id number] 10mg Take 1 U nivers (ZETIA) 10 4-18 tablet by ity of mg tablet 00:00: mouth [place] 00 the Medical morning. Branch ezetimibe 2023-0 Yes [id number] 10mg Take 1 U nivers (ZETIA) 10 4-18 tablet by ity of mg tablet 00:00: mouth [place] 00 the Medical morning. Branch ezetimibe 2023-0 Yes [id number] 10mg Take 1 U nivers (ZETIA) 10 4-18 tablet by ity of mg tablet 00:00: mouth [place] 00 the Medical morning. Branch ezetimibe 2023-0 Yes [id number] 10mg Take 1 U nivers (ZETIA) 10 4-18 tablet by ity of mg tablet 00:00: mouth [place] 00 the Medical morning. Branch ezetimibe 2023-0 Yes [id number] 10mg Take 1 U nivers (ZETIA) 10 4-18 tablet by ity of mg tablet 00:00: mouth [place] 00 the Medical morning. Branch ezetimibe 2023-0 Yes [id number] 10mg Take 1 U nivers (ZETIA) 10 4-18 tablet by ity of mg tablet 00:00: mouth [place] 00 the Medical morning. Branch ezetimibe 2023-0 Yes [id number] 10mg Take 1 U nivers (ZETIA) 10 4-18 tablet by ity of mg tablet 00:00: mouth [place] 00 the Medical morning. Branch ezetimibe 2023-0 Yes [id number] 10mg Take 1 U nivers (ZETIA) 10 4-18 tablet by ity of mg tablet 00:00: mouth [place] 00 the Medical morning. Branch ezetimibe 2023-0 Yes [id number] 10mg Take 1 U nivers (ZETIA) 10 4-18 tablet by ity of mg tablet 00:00: [place] 00 the Medical morning. Branch ezetimibe 2023-0 Yes [id number] 10mg Take 1 U nivers (ZETIA) 10 4-18 tablet by ity of mg tablet 00:00: [place] 00 the Medical morning. Branch ezetimibe 2023-0 Yes [id number] 10mg Take 1 U nivers (ZETIA) 10 4-18 tablet by ity of mg tablet 00:00: [place] 00 the Medical morning. Branch ezetimibe 2023-0 Yes [id number] 10mg Take 1 U nivers (ZETIA) 10 4-18 tablet by ity of mg tablet 00:00: mouth [place] 00 the Medical morning. Branch ezetimibe 2023-0 Yes [id number] 10mg Take 1 U nivers (ZETIA) 10 4-18 tablet by ity of mg tablet 00:00: mouth [place] 00 the Medical morning. Branch ezetimibe 2023-0 Yes [id number] 10mg Take 1 U nivers (ZETIA) 10 4-18 tablet by ity of mg tablet 00:00: mouth [place] 00 the Medical morning. Branch ezetimibe 2023-0 Yes [id number] 10mg Take 1 U nivers (ZETIA) 10 4-18 tablet by ity of mg tablet 00:00: mouth [place] 00 the Medical morning. Branch ezetimibe 2023-0 Yes [id number] 10mg Take 1 U nivers (ZETIA) 10 4-18 tablet by ity of mg tablet 00:00: mouth [place] 00 the Medical morning. Branch ezetimibe 2023-0 Yes [id number] 10mg Take 1 U nivers (ZETIA) 10 4-18 tablet by ity of mg tablet 00:00: [place] 00 the Medical morning. Branch ezetimibe 2023-0 Yes [id number] 10mg Take 1 U nivers (ZETIA) 10 4-18 tablet by ity of mg tablet 00:00: [place] 00 the Medical morning. Branch ezetimibe 2023-0 Yes [id number] 10mg Take 1 U nivers (ZETIA) 10 4-18 tablet by ity of mg tablet 00:00: mouth [place] 00 the Medical morning. Branch ezetimibe 2023-0 Yes [id number] 10mg Take 1 U nivers (ZETIA) 10 4-18 tablet by ity of mg tablet 00:00: mouth [place] 00 the Medical morning. Branch ezetimibe 2023-0 Yes [id number] 10mg Take 1 U nivers (ZETIA) 10 4-18 tablet by ity of mg tablet 00:00: [place] 00 the Medical morning. Branch ezetimibe 2023-0 Yes [id number] 10mg Take 1 U nivers (ZETIA) 10 4-18 tablet by ity of mg tablet 00:00: [place] 00 the Medical morning. Branch ezetimibe 2023-0 Yes [id number] 10mg Take 1 U nivers (ZETIA) 10 4-18 tablet by ity of mg tablet 00:00: [place] 00 the Medical morning. Branch ezetimibe 2023-0 Yes [id number] 10mg Take 1 U nivers (ZETIA) 10 4-18 tablet by ity of mg tablet 00:00: [place] 00 the Medical morning. Branch ezetimibe 2022-0 Yes [id number] 10mg Take 1 U nivers (ZETIA) 10 4-18 tablet by ity of mg tablet 00:00: mouth [place] 00 the Medical morning. Branch ezetimibe 2023-0 Yes [id number] 10mg Take 1 U nivers (ZETIA) 10 4-18 tablet by ity of mg tablet 00:00: mouth [place] 00 the Medical morning. Branch ezetimibe 2022-0 Yes [id number] 10mg Take 1 U nivers (ZETIA) 10 4-18 tablet by ity of mg tablet 00:00: [place] 00 the Medical morning. Branch ezetimibe 2022-0 Yes [id number] 10mg Take 1 U nivers (ZETIA) 10 4-18 tablet by ity of mg tablet 00:00: [place] 00 the Medical morning. Branch ezetimibe 2022-0 Yes [id number] 10mg Take 1 U nivers (ZETIA) 10 4-18 tablet by ity of mg tablet 00:00: [place] 00 the Medical morning. Branch alendronate Yes 70mg 70 mg, Univ ers (FOSAMAX) 06-13 Oral, ity of tablet 70 06:00: QWEEKLY, [place] mg 00 First dose Medical on Sat [place] 06/13/22 at 0000, Until Discontinu ed, Routine magnesium 2022- No 400mg 400 mg, Uni vers oxide 06-12 Oral, ity of (MAG-OX 14:45: 14:19 ONCE, 1 [place] 400) tablet 00 :00 dose, On Medi tyrone 400 mg Sat [place] 06/12/22 at 0845, Routine HYDROcodone 2022-0 Yes [...] mg per 55 Medical tablet Branch HYDROcodone 2023-0 Yes 1 tablet Un chong -acetaminop 2-28 [...] per 55 Medical tablet Branch Fesoterodin 2022-0 2023- No 1 tablet U nivers e (TOVIAZ) [...] 35 Medical tablet Branch NaCl 0.9% Yes [id number] 250mL at 20 U nivers (NS) IV 06-11 mL/hr, IV ity of infusion 16:15: Infusion, [place] 250 [place] 00 CONTINUOUS Medical , Starting Branch on 06/11/22 at 1015, Until Discontinu ed, Routine&lt ;br>KVO
lidocaine 2022- No [id number] 15mL 15 mL, Univers 2% viscous 06-11 9107 Oral, ity of (LIDOCAINE 16:15: 16:15 ONCE, 1 [place] as VISCOUS) 2 00 :00 dose, On Medic al % solution Mon Branch 15 mL 06/11/22 at 1015, Routine FENTanyl PF 2022- No [id number] 50ug 50 mcg, Univers (SUBLIMAZE 06-11 9107 Slow IV ity o f (PF)) 16:15: 16:15 Push, [place] injection 00 :00 ONCE, 1 Medical 50 mcg dose, On Branch 06/11/22 at 1015, Routine midazolam 2022- No [id number] 1mg 1 mg, IV Univers (VERSED) 06-11 9107 Push, ity of injection 1 16:15: 16:15 [place]CE, 1 [place] mg 00 :00 dose, On Medical Mon Branch 06/11/22 at 1015, Routine warfarin Yes [id number] 2mg Take 2 Univers mg tablet 2-27 tablets by ity of 00:00: mouth [place] 00 every Medical evening. Branch Alternate take 1mg x3 days, then 2mg x 4 days warfarin Yes [id number] 2mg Take 2 Univers mg tablet 2-27 tablets by ity of 00:00: mouth [place] 00 every Medical evening. Branch Alternate take 1mg x3 days, then 2mg x 4 days warfarin Yes [id number] 2mg Take 2 Univers mg tablet 2-27 tablets by ity of 00:00: mouth [place] 00 every Medical evening. Branch Alternate take 1mg x3 days, then 2mg x 4 days warfarin Yes [id number] 2mg Take 2 Univers mg tablet 2-27 tablets by ity of 00:00: mouth [place] 00 every Medical evening. Branch Alternate take 1mg x3 days, then 2mg x 4 days warfarin Yes [id number] 2mg Take 2 Univers mg tablet 2-27 tablets by ity of 00:00: mouth [place] 00 every Medical evening. Branch Alternate take 1mg x3 days, then 2mg x 4 days warfarin Yes [id number] 2mg Take 2 Univers mg tablet 2-27 tablets by ity of 00:00: mouth [place] 00 every Medical evening. Branch Alternate take 1mg x3 days, then 2mg x 4 days warfarin Yes [id number] 2mg Take 2 Univers mg tablet 2-27 tablets by ity of 00:00: mouth [place] 00 every Medical evening. Branch Alternate take 1mg x3 days, then 2mg x 4 days warfarin Yes [id number] 2mg Take 2 Univers mg tablet 2-27 tablets by ity of 00:00: mouth [place] 00 every Medical evening. Branch Alternate take 1mg x3 days, then 2mg x 4 days warfarin Yes [id number] 2mg Take 2 Univers mg tablet 2-27 tablets by ity of 00:00: mouth [place] 00 every Medical evening. Branch Alternate take 1mg x3 days, then 2mg x 4 days warfarin 1 2022-0 Yes [id number] 2mg Take 2 [facility] mg tablet 2-27 tablets by ity of 00:00: mouth [place] 00 every Medical evening. Branch Alternate take 1mg x3 days, then 2mg x 4 days warfarin 2022-0 Yes [id number] 2mg Take 2 [facility] mg tablet 2-27 tablets by ity of 00:00: mouth [place] 00 every Medical evening. Branch Alternate take 1mg x3 days, then 2mg x 4 days warfarin 1 2022-0 Yes [id number] 2mg Take 2 [facility] mg tablet 2-27 tablets by ity of 00:00: mouth [place] 00 every Medical evening. Branch Alternate take 1mg x3 days, then 2mg x 4 days warfarin 1 2022-0 Yes [id number] 2mg Take 2 [facility] mg tablet 2-27 tablets by ity of 00:00: mouth [place] 00 every Medical evening. Branch Alternate take 1mg x3 days, then 2mg x 4 days warfarin 1 0 Yes [id number] 2mg Take 2 [facility] mg tablet 2-27 tablets by ity of 00:00: mouth [place] 00 every Medical evening. Branch Alternate take 1mg x3 days, then 2mg x 4 days warfarin 2022-0 Yes [id number] 2mg Take 2 [facility] mg tablet 2-27 tablets by ity of 00:00: mouth [place] 00 every Medical evening. Branch Alternate take 1mg x3 days, then 2mg x 4 days warfarin 0 Yes [id number] 2mg Take 2 [facility] mg tablet 2-27 tablets by ity of 00:00: mouth [place] 00 every Medical evening. Branch Alternate take 1mg x3 days, then 2mg x 4 days warfarin 1 0 Yes [id number] 2mg Take 2 [facility] mg tablet 2-27 tablets by ity of 00:00: mouth [place] 00 every Medical evening. Branch Alternate take 1mg x3 days, then 2mg x 4 days warfarin 1 2022-0 Yes [id number] 2mg Take 2 [facility] mg tablet 2-27 tablets by ity of 00:00: mouth [place] 00 every Medical evening. Branch Alternate take 1mg x3 days, then 2mg x 4 days warfarin 1 2022-0 Yes [id number] 2mg Take 2 [facility] mg tablet 2-27 tablets by ity of 00:00: mouth [place] 00 every Medical evening. Branch Alternate take 1mg x3 days, then 2mg x 4 days warfarin 1 2022-0 Yes [id number] 2mg Take 2 [facility] mg tablet 2-27 tablets by ity of 00:00: mouth [place] 00 every Medical evening. Branch Alternate take 1mg x3 days, then 2mg x 4 days warfarin 1 2022-0 Yes [id number] 2mg Take 2 [facility] mg tablet 2-27 tablets by ity of 00:00: mouth [place] 00 every Medical evening. Branch Alternate take 1mg x3 days, then 2mg x 4 days warfarin 1 2022-0 Yes [id number] 2mg Take 2 [facility] mg tablet 2-27 tablets by ity of 00:00: mouth [place] 00 every Medical evening. Branch Alternate take 1mg x3 days, then 2mg x 4 days warfarin 2022-0 Yes [id number] 2mg Take 2 [facility] mg tablet 2-27 tablets by ity of 00:00: mouth [place] 00 every Medical evening. Branch Alternate take 1mg x3 days, then 2mg x 4 days warfarin 2022-0 Yes [id number] 2mg Take 2 [facility] mg tablet 2-27 tablets by ity of 00:00: mouth [place] 00 every Medical evening. Branch Alternate take 1mg x3 days, then 2mg x 4 days warfarin 1 2022-0 Yes [id number] 2mg Take 2 [facility] mg tablet 2-27 tablets by ity of 00:00: mouth [place] 00 every Medical evening. Branch Alternate take 1mg x3 days, then 2mg x 4 days warfarin 1 2022-0 Yes [id number] 2mg Take 2 [facility] mg tablet 2-27 tablets by ity of 00:00: mouth [place] 00 every Medical evening. Branch Alternate take 1mg x3 days, then 2mg x 4 days warfarin 1 2022-0 Yes [id number] 2mg Take 2 [facility] mg tablet 2-27 tablets by ity of 00:00: mouth [place] 00 every Medical evening. Branch Alternate take 1mg x3 days, then 2mg x 4 days warfarin 1 2022-0 Yes [id number] 2mg Take 2 [facility] mg tablet 2-27 tablets by ity of 00:00: mouth [place] 00 every Medical evening. Branch Alternate take 1mg x3 days, then 2mg x 4 days warfarin 1 2022-0 Yes [id number] 2mg Take 2 [facility] mg tablet 2-27 tablets by ity of 00:00: mouth [place] 00 every Medical evening. Branch Alternate take 1mg x3 days, then 2mg x 4 days warfarin 1 2022-0 Yes [id number] 2mg Take 2 [facility] mg tablet 2-27 tablets by ity of 00:00: mouth [place] 00 every Medical evening. Branch Alternate take 1mg x3 days, then 2mg x 4 days warfarin 1 2022-0 Yes [id number] 2mg Take 2 [facility] mg tablet 2-27 tablets by ity of 00:00: mouth [place] 00 every Medical evening. Branch Alternate take 1mg x3 days, then 2mg x 4 days warfarin 1 2022-0 Yes [id number] 2mg Take 2 [facility] mg tablet 2-27 tablets by ity of 00:00: mouth [place] 00 every Medical evening. Branch Alternate take 1mg x3 days, then 2mg x 4 days warfarin 1 2022-0 Yes [id number] 2mg Take 2 [facility] mg tablet 2-27 tablets by ity of 00:00: mouth [place] 00 every Medical evening. Branch Alternate take 1mg x3 days, then 2mg x 4 days warfarin 1 2022-0 Yes [id number] 2mg Take 2 [facility] mg tablet 2-27 tablets by ity of 00:00: mouth [place] 00 every Medical evening. Branch Alternate take 1mg x3 days, then 2mg x 4 days warfarin 1 2022-0 Yes [id number] 2mg Take 2 [facility] mg tablet 2-27 tablets by ity of 00:00: mouth [place] 00 every Medical evening. Branch Alternate take 1mg x3 days, then 2mg x 4 days warfarin 1 2022-0 Yes [id number] 2mg Take 2 [facility] mg tablet 2-27 tablets by ity of 00:00: mouth [place] 00 every Medical evening. Branch Alternate take 1mg x3 days, then 2mg x 4 days warfarin 1 2022-0 Yes [id number] 2mg Take 2 [facility] mg tablet 2-27 tablets by ity of 00:00: mouth [place] 00 every Medical evening. Branch Alternate take 1mg x3 days, then 2mg x 4 days warfarin 1 2022-0 Yes [id number] 2mg Take 2 [facility] mg tablet 2-27 tablets by ity of 00:00: mouth [place] 00 every Medical evening. Branch Alternate take 1mg x3 days, then 2mg x 4 days warfarin 1 Yes [id number] 2mg Take 2 [facility] mg tablet 2-27 tablets by ity of 00:00: mouth [place] 00 every Medical evening. Branch Alternate take 1mg x3 days, then 2mg x 4 days warfarin 1 Yes [id number] 2mg Take 2 [facility] mg tablet 2-27 tablets by ity of 00:00: mouth [place] 00 every Medical evening. Branch Alternate take 1mg x3 days, then 2mg x 4 days warfarin 1 Yes [id number] 2mg Take 2 [facility] mg tablet 2-27 tablets by ity of 00:00: mouth [place] 00 every Medical evening. Branch Alternate take 1mg x3 days, then 2mg x 4 days warfarin 1 2022- No [id number] 2mg Take 2 [facility] mg tablet 2-27 -07 tablets by ity of 00:00: 00:00 mouth [place] 00 :00 every Medical evening. Branch Alternate take 1mg x3 days, then 2mg x 4 days warfarin 1 2022- No [id number] 2mg Take 2 [facility] mg tablet 2-27 07-07 tablets by ity of 00:00: 00:00 mouth [place] 00 :00 every Medical evening. Branch Alternate take 1mg x3 days, then 2mg x 4 days dofetilide 2022- No [id number] 250ug Take 1 [facility] 250 mcg 2-27 05-29 capsule by ity o f capsule 00:00: 04:59 mouth [place] 00 :00 every 12 Medical (twelve) Branch hours for 90 days. dofetilide 2022- No [id number] 250ug Take 1 [facility] 250 mcg 2-27 05-29 capsule by ity o f capsule 00:00: 04:59 mouth [place] 00 :00 every 12 Medical (twelve) Branch hours for 90 days. dofetilide 2022- No [id number] 250ug Take 1 [facility] 250 mcg 2-27 05-29 capsule by ity o f capsule 00:00: 04:59 mouth [place] 00 :00 every 12 Medical (twelve) Branch hours for 90 days. dofetilide 2022- No [id number] 250ug Take 1 [facility] 250 mcg 2-27 05-29 capsule by ity o f capsule 00:00: 04:59 mouth [place] 00 :00 every 12 Medical (twelve) Branch hours for 90 days. dofetilide 2022- No [id number] 250ug Take 1 [facility] 250 mcg 2-27 05-29 capsule by ity o f capsule 00:00: 04:59 mouth [place] 00 :00 every 12 Medical (twelve) Branch hours for 90 days. dofetilide 2022- No [id number] 250ug Take 1 [facility] 250 mcg 2-27 05-29 capsule by ity o f capsule 00:00: 04:59 mouth [place] 00 :00 every 12 Medical (twelve) Branch hours for 90 days. dofetilide 2022- No [id number] 250ug Take 1 [facility] 250 mcg 2-27 05-29 capsule by ity o f capsule 00:00: 04:59 mouth [place] 00 :00 every 12 Medical (twelve) Branch hours for 90 days. dofetilide 2022- No [id number] 250ug Take 1 [facility] 250 mcg 2-27 05-29 capsule by ity o f capsule 00:00: 04:59 mouth [place] 00 :00 every 12 Medical (twelve) Branch hours for 90 days. dofetilide 2022- No [id number] 250ug Take 1 [facility] 250 mcg 2-27 05-29 capsule by ity o f capsule 00:00: 04:59 mouth [place] 00 :00 every 12 Medical (twelve) Branch hours for 90 days. dofetilide 2022- No [id number] 250ug Take 1 [facility] 250 mcg 2-27 05-29 capsule by ity o f capsule 00:00: 04:59 mouth [place] 00 :00 every 12 Medical (twelve) Branch hours for 90 days. dofetilide 2022- No [id number] 250ug Take 1 [facility] 250 mcg 2-27 05-29 capsule by ity o f capsule 00:00: 04:59 mouth [place] 00 :00 every 12 Medical (twelve) Branch hours for 90 days. dofetilide 2022- No [id number] 250ug Take 1 [facility] 250 mcg 2-27 05-29 capsule by ity o f capsule 00:00: 04:59 mouth [place] 00 :00 every 12 Medical (twelve) Branch hours for 90 days. dofetilide 2022- No [id number] 250ug Take 1 [facility] 250 mcg 2-27 05-29 capsule by ity o f capsule 00:00: 04:59 mouth [place] 00 :00 every 12 Medical (twelve) Branch hours for 90 days. dofetilide 2022- No [id number] 250ug Take 1 [facility] 250 mcg 2-27 05-29 capsule by ity o f capsule 00:00: 04:59 mouth [place] 00 :00 every 12 Medical (twelve) Branch hours for 90 days. dofetilide 2022- No [id number] 250ug Take 1 [facility] 250 mcg 2-27 05-29 capsule by ity o f capsule 00:00: 04:59 mouth [place] 00 :00 every 12 Medical (twelve) Branch hours for 90 days. dofetilide 2022- No [id number] 250ug Take 1 [facility] 250 mcg 2-27 05-29 capsule by ity o f capsule 00:00: 04:59 mouth [place] 00 :00 every 12 Medical (twelve) Branch hours for 90 days. dofetilide 2022- No [id number] 250ug Take 1 [facility] 250 mcg 2-27 05-29 capsule by ity o f capsule 00:00: 04:59 mouth [place] 00 :00 every 12 Medical (twelve) Branch hours for 90 days. dofetilide 2022- No [id number] 250ug Take 1 [facility] 250 mcg 2-27 05-29 capsule by ity o f capsule 00:00: 04:59 mouth [place] 00 :00 every 12 Medical (twelve) Branch hours for 90 days. dofetilide 2022- No [id number] 250ug Take 1 [facility] 250 mcg 2-27 05-29 capsule by ity o f capsule 00:00: 04:59 mouth [place] 00 :00 every 12 Medical (twelve) Branch hours for 90 days. dofetilide 2022- No [id number] 250ug Take 1 [facility] 250 mcg 2-27 05-29 capsule by ity o f capsule 00:00: 04:59 mouth [place] 00 :00 every 12 Medical (twelve) Branch hours for 90 days. dofetilide 2022- No [id number] 250ug Take 1 [facility] 250 mcg 2-27 05-29 capsule by ity o f capsule 00:00: 04:59 mouth [place] 00 :00 every 12 Medical (twelve) Branch hours for 90 days. dofetilide 2022- No [id number] 250ug Take 1 [facility] 250 mcg 2-27 05-29 capsule by ity o f capsule 00:00: 04:59 mouth [place] 00 :00 every 12 Medical (twelve) Branch hours for 90 days. dofetilide 2022- No [id number] 250ug Take 1 [facility] 250 mcg 2-27 05-29 capsule by ity o f capsule 00:00: 04:59 mouth [place] 00 :00 every 12 Medical (twelve) Branch hours for 90 days. dofetilide 2022- No [id number] 250ug Take 1 [facility] 250 mcg 2-27 05-29 capsule by ity o f capsule 00:00: 04:59 mouth [place] 00 :00 every 12 Medical (twelve) Branch hours for 90 days. dofetilide 2022- No [id number] 250ug Take 1 [facility] 250 mcg 2-27 05-29 capsule by ity o f capsule 00:00: 04:59 mouth [place] 00 :00 every 12 Medical (twelve) Branch hours for 90 days. dofetilide 2022- No [id number] 250ug Take 1 [facility] 250 mcg 2-27 05-29 capsule by ity o f capsule 00:00: 04:59 mouth [place] 00 :00 every 12 Medical (twelve) Branch hours for 90 days. dofetilide 2022- No [id number] 250ug Take 1 [facility] 250 mcg 2-27 05-29 capsule by ity o f capsule 00:00: 04:59 mouth [place] 00 :00 every 12 Medical (twelve) Branch hours for 90 days. dofetilide 2022- No [id number] 250ug Take 1 [facility] 250 mcg 2-27 05-29 capsule by ity o f capsule 00:00: 04:59 mouth [place] 00 :00 every 12 Medical (twelve) Branch hours for 90 days. dofetilide 2022- No [id number] 250ug Take 1 [facility] 250 mcg 2-27 05-29 capsule by ity o f capsule 00:00: 04:59 mouth [place] 00 :00 every 12 Medical (twelve) Branch hours for 90 days. dofetilide 2022-2022- No [id number] 250ug Take 1 [facility] 250 mcg 2-27 05-29 capsule by ity o f capsule 00:00: 04:59 mouth [place] 00 :00 every 12 Medical (twelve) Branch hours for 90 days. dofetilide 2022- No [id number] 250ug Take 1 [facility] 250 mcg 2-27 05-29 capsule by ity o f capsule 00:00: 04:59 mouth [place] 00 :00 every 12 Medical ([facility]) Branch hours for 90 days. dofetilide 2022- No [id number] 250ug Take 1 [facility] 250 mcg 2-27 05-29 capsule by ity o f capsule 00:00: 04:59 mouth [place] 00 :00 every 12 Medical ([facility]) Branch hours for 90 days. dofetilide 2022- No [id number] 250ug Take 1 [facility] 250 mcg 2-27 05-29 capsule by ity o f capsule 00:00: 04:59 mouth [place] 00 :00 every 12 Medical (twelve) Branch hours for 90 days. dofetilide 2022- No [id number] 250ug Take 1 [facility] 250 mcg 2-27 05-29 capsule by ity o f capsule 00:00: 04:59 mouth [place] 00 :00 every 12 Medical (twelve) Branch hours for 90 days. dofetilide 2022- No [id number] 250ug Take 1 [facility] 250 mcg 2-27 05-29 capsule by ity o f capsule 00:00: 04:59 mouth [place] 00 :00 every 12 Medical (twelve) Branch hours for 90 days. enoxaparin 2022- No [id number] 40mg inject 0.4 [facility] 40 mg/0.4 2-27 03-05 mL under ity o f mL 00:00: 05:59 the skin [place] injection 00 :00 in the Medical morning Branch for 5 days. enoxaparin 2022- No [id number] 40mg inject 0.4 [facility] 40 mg/0.4 06-11 03-05 mL under ity o f mL 00:00: 05:59 the skin [place] injection 00 :00 in the [facility] Branch for 5 days. enoxaparin 2022-2022- No [id number] 40mg inject 0.4 [facility] 40 mg/0.4 06-11 03-05 mL under ity o f mL 00:00: 05:59 the skin [place] injection 00 :00 in the [facility] Branch for 5 days. enoxaparin 2022-2022- No [id number] 40mg inject 0.4 [facility] 40 mg/0.4 06-11 03-05 mL under ity o f mL 00:00: 05:59 the skin [place] injection 00 :00 in the [facility] Branch for 5 days. enoxaparin 2022-2022- No [id number] 40mg inject 0.4 [facility] 40 mg/0.4 06-11 03-05 mL under ity o f mL 00:00: 05:59 the skin [place] injection 00 :00 in the [facility] Branch for 5 days. enoxaparin 2022-2022- No [id number] 40mg inject 0.4 [facility] 40 mg/0.4 06-11 03-05 mL under ity o f mL 00:00: 05:59 the skin [place] injection 00 :00 in the [facility] Branch for 5 days. enoxaparin 2022- No [id number] 40mg inject 0.4 [facility] 40 mg/0.4 06-11 03-05 mL under ity o f mL 00:00: 05:59 the skin [place] injection 00 :00 in the [facility] Branch for 5 days. dofetilide 2022- No [id number] 250ug Take 1 [facility] 250 mcg 06-11- capsule by ity o f capsule 00:00: 05:59 mouth [place] 00 :00 every 12 Medical (twelve) Branch hours for 2 days. warfarin 2 2022- No [id number] 2mg Take 1 [facility] mg tablet 06-11- tablet by ity of 00:00: 05:59 mouth [place] 00 :00 every Medical evening Branch for 2 days. dofetilide 2022- No [id number] 250ug Take 1 [facility] 250 mcg 06-11 capsule by ity o f capsule 00:00: 05:59 mouth [place] 00 :00 every 12 Medical (twelve) Branch hours for 2 days. warfarin 2 2022- No [id number] 2mg Take 1 [facility] mg tablet 06-11 tablet by ity of 00:00: 05:59 mouth [place] 00 :00 every Medical evening Branch for 2 days. warfarin 2 2022- No [id number] 2mg Take 1 [facility] mg tablet 06-11 tablet by ity of 00:00: 05:59 mouth [place] 00 :00 every Medical evening Branch for 2 days. warfarin 2 2022- No [id number] 2mg Take 1 [facility] mg tablet 06-11 tablet by ity of 00:00: 05:59 mouth [place] 00 :00 every Medical evening Branch for 2 days. warfarin 2 2022- No [id number] 2mg Take 1 [facility] mg tablet 06-11 tablet by ity of 00:00: 05:59 mouth [place] 00 :00 every Medical evening Branch for 2 days. warfarin 2 2022- No [id number] 2mg Take 1 [facility] mg tablet 06-11 tablet by ity of 00:00: 05:59 mouth [place] 00 :00 every Medical evening Branch for 2 days. warfarin 2 2022- No [id number] 2mg Take 1 [facility] mg tablet 06-11 tablet by ity of 00:00: 05:59 mouth [place] 00 :00 every Medical evening Branch for 2 days. enoxaparin 2022- No [id number] 40mg inject 0.4 [facility] 40 mg/0.4 06-11- mL under ity o f mL 00:00: 05:59 the skin [place] injection 00 :00 in the Medical morning Branch for 2 days. enoxaparin 2022- No [id number] 40mg inject 0.4 [facility] 40 mg/0.4 06-11- mL under ity o f mL 00:00: 05:59 the skin [place] injection 00 :00 in the Medical morning Branch for 2 days. dofetilide 2022- No [id number] 250ug Take 1 [facility] 250 mcg 06-11- capsule by ity o f capsule 00:00: 05:59 mouth [place] 00 :00 every 12 [facility] hours for 2 days. enoxaparin No [id number] 40mg inject 0.4 [facility] 40 mg/0.4 06-11- mL under ity o f mL 00:00: 05:59 the skin [place] injection 00 :00 in the [facility] for 2 days. dofetilide 2022- No [id number] 250ug Take 1 [facility] 250 mcg 06-11- capsule by ity o f capsule 00:00: 05:59 mouth [place] 00 :00 every 12 [facility] hours for 2 days. enoxaparin 2022- No [id number] 40mg inject 0.4 [facility] 40 mg/0.4 06-11- mL under ity o f mL 00:00: 05:59 the skin [place] injection 00 :00 in the [facility] for 2 days. dofetilide 2022- No [id number] 250ug Take 1 [facility] 250 mcg 06-11 capsule by ity o f capsule 00:00: 05:59 mouth [place] 00 :00 every 12 [facility] hours for 2 days. enoxaparin 2022- No [id number] 40mg inject 0.4 [facility] 40 mg/0.4 06-11- mL under ity o f mL 00:00: 05:59 the skin [place] injection 00 :00 in the [facility] for 2 days. dofetilide 2022- No [id number] 250ug Take 1 [facility] 250 mcg 06-11- capsule by ity o f capsule 00:00: 05:59 mouth [place] 00 :00 every 12 [facility] [place] hours for 2 days. enoxaparin 2022- No [id number] 40mg inject 0.4 [facility] 40 mg/0.4 06-11- mL under ity o f mL 00:00: 05:59 the skin [place] injection 00 :00 in the [facility] for 2 days. dofetilide 2022- No [id number] 250ug Take 1 [facility] 250 mcg 06-1102 capsule by ity o f capsule 00:00: 05:59 mouth [place] 00 :00 every 12 Medical (twelve) Branch hours for 2 days. enoxaparin 2022- No [id number] 40mg inject 0.4 [facility] 40 mg/0.4 06-11 03-02 mL under ity o f mL 00:00: 05:59 the skin [place] injection 00 :00 in the Medical morning Branch for 2 days. warfarin Yes 2mg 2 mg, Univers (COUMADIN) 06-10 Oral, ity of tablet 2 mg 23:00: [place]ILY AT [place] 00 1700, Medical First dose Branch (after last modificati on) on [place] 06/10/22 at 1700, Until Discontinu ed, Routine
INR Goal Range: 2-3
IND ICATION (More than one indication for warfarin can be selected): Atrial fibrillati on/flutter magnesium 2022- No 800mg 800 mg, Uni vers oxide 06-10 Oral, ity of (MAG-OX 14:15: 14:30 ONCE, 1 [place] 400) tablet 00 :00 dose, On Medi tyrone 800 mg [facility] 06/10/22 at 0815, Routine magnesium 2022- [...] Yes 200mg 200 mg, Uni vers (NEURONTIN) -25 Oral, TID, it y of capsule 200 20:00: First dose [place] mg 00 on Sat Medical 06/09/22 at Branch 1400, Until Discontinu ed, Routine acetaminoph 2023-0 Yes 500mg 500 mg, Un [facility]ong en 2-25 Oral, TID, ity of (TYLENOL) 20:00: First dose [place] tablet 500 00 (after Medical mg last Branch modificati on) on 06/09/22 at 1400, Until Discontinu ed, Routine heparin 2022- No 80U/kg 3,560 Univer s 1000 [...] INITIAL INFUSION RATE.&nbsp ; _ &nb sp;FOR [facility] ONLY &nbs p; - [...] therapeuti c levels are reached.<b r> heparin 2022-0 Yes 3000U FOR Univers (1,000 2-25 REBOLUSING ity of unit/mL, 10 16:27: , Starting [place] mL vial) 12 on [facility] Medical 06/09/22 at Branch 1027, Until Discontinu ed, Routine
Dosing based on aPTT testing parameters (refer to continuous heparin drip order)
magnesium 2022-0 2022- No 400mg 400 mg, Uni vers oxide 06-09- Oral, ity of (MAG-OX 15:00: 15:14 ONCE, 1 [place] 400) tablet 00 :00 dose, On Medi tyrone 400 mg Sat Branch 06/09/22 at 0900, Routine FENTanyl PF Yes 25ug 25 mcg, Uni vers (SUBLIMAZE 24 Slow IV ity of (PF)) 17:36: Push, [place] injection 01 Q6HPRN, Medical 25 mcg Starting Branch on Sat06/08/22 at 1136, Until Discontinu ed, Routine, Pain (scale 7-10) magnesium 2022-0 2022- No 2g 2 g, IV Univ ers sulfate in 06-08- Piggyback, it y of water 2 12:45: 13:13 Administer Babak as gram/50 mL 00 :00 over 60 Medica l (4 %) Minutes, Branch infusion 2 ONCE, 1 g dose, On Sat06/08/22 at 0645, Routine dofetilide 0 Yes 250ug 250 mcg, Un chong (TIKOSYN) 06-08 Oral, ity of capsule 250 02:00: Q12H, [place] mcg 00 First dose Medical (after Branch last modificati on) on [place] 06/07/22 at 2000, Until Discontinu ed, Routine
member service specialist approving Restricted medication : TAYLOR SHIVLEVIMARIIA warfarin 2022- No 1.5mg 1.5 mg, Univ [...] [place] mg 00 First dose Medical on [place] Branch 06/07/22 [...] mg 00 :00 dose, On Medical [place] 06/07/22 at 0145, Routine KCL 2022- No 20meq 20 mEq, Univers (KLOR-CON 06-07 Oral, ity of M20) tablet 05:00: 06:48 ONCE, 1 [place] 20 mEq 00 :00 dose, On [facility] 06/06/22 at 2315, Routine magnesium 2022- No 2g 2 g, IV Univ ers sulfate in 06-07 Piggyback, it y of water 2 05:00: 08:15 Administer Babak as gram/50 mL 00 :00 over 60 Medica l (4 %) Minutes, Branch infusion 2 ONCE, 1 g dose, On [facility] 06/06/22 at 2315, Routine atorvastati Yes 80mg 80 mg, Univ ers n (LIPITOR) 06-07 Oral, QHS, it y of tablet 80 03:00: First dose [place] mg 00 on [facility] 06/06/22 at Branch 2100, Until Discontinu ed, Routine dofetilide 2022- No 125ug 125 mcg, U nivers (TIKOSYN) 06-07 Oral, ity of capsule 125 02:00: 16:35 Q12H, [place] m[place] :11 First dose Medical on [facility] 06/06/22 at 2000, Until Discontinu ed, Routine
member service specialist approving Restricted medication : MARIIA CARDONA lidocaine Yes 1{patch 1 Patch, U nivers (LIDODERM) 06-07 } Topical, ity o f 5 % (700 01:00: Administer Babak as mg/patch) 00 over 12 Medical patch 1 Hours, Branch Patch DAILY, First dose (after last modificati on) on [facility] 06/06/22 at 1900, Until Discontinu ed, Routine warfarin [...] 1 Medical 12.5 mcg dose, On Branch 06/06/22 at 1830, Routine zolpidem Yes 5mg 5 [...] mg per 48 Medical tablet Branch furosemide 2022-2023- No 20mg QD Take [address] [facility] (LASIX) 20 2-28 05- tablet (20 Yady kes MG tablet 00:00: 23:59 mg total) Me dical 00 :00 by mouth Center daily. furosemide 2023- No 20mg QD Take [address] [facility] (LASIX) 20 2-28 05-13 tablet (20 Yady kes MG tablet 00:00: 23:59 mg total) Me dical 00 :00 by mouth Center daily. furosemide 2022-0 2024- No 20mg QD Take [address] [facility] (LASIX) 20 2-13 02-13 tablet (20 Yady kes MG tablet 00:00: 23:59 mg total) Me dical 00 :00 by mouth Center daily. furosemide 2022-0 2024- No 20mg QD Take [address] [facility] (LASIX) 20 2-13 02-13 tablet (20 Yady kes MG tablet 00:00: 23:59 mg total) Me dical 00 :00 by mouth Center daily. furosemide 2022-0 2023- No 20mg QD Take [address] [facility] (LASIX) 20 2-13 02-13 tablet (20 Yady kes MG tablet 00:00: 23:59 mg total) Me dical 00 :00 by mouth Center daily. furosemide 2022-0 2023- No 20mg QD Take [address] [facility] (LASIX) 20 2-13 02-13 tablet (20 Yady kes MG tablet 00:00: 23:59 mg total) Me dical 00 :00 by mouth Center daily. furosemide 2022-0 2023- No 20mg QD Take [address] [facility] (LASIX) 20 2-13 02-13 tablet (20 Yady kes MG tablet 00:00: 23:59 mg total) Me dical 00 :00 by mouth Center daily. warfarin 3-0 Yes 1mg QD Take [address] [facility] (COUMADIN, 2-12 by mouth [facility]) 1 16:44: daily. Medi tyrone MG tablet 11 [place] warfarin 2023-0 Yes 1mg QD Take [address] [facility] (COUMADIN, 2-12 by mouth [facility]) 1 16:44: daily. Medi tyrone MG tablet 11 [place] warfarin 3-0 Yes 1mg QD Take [address] [facility] (COUMADIN, 2-12 by mouth [facility]) 1 16:44: daily. Medi tyrone MG tablet 11 [place] warfarin 2023-0 Yes 1mg QD Take [address] [facility] (COUMADIN, 2-12 by mouth [facility]) 1 16:44: daily. Medi tyrone MG tablet 11 [place] warfarin 2023-0 Yes 1mg QD Take [address] [facility] (COUMADIN, 2-12 by mouth [facility]) 1 16:44: daily. Medi tyrone MG tablet 11 [place] warfarin Yes 1mg QD Take 1 mg [...] Center to 1 tab daily. atorvastati 0 2023- No 80mg QD Take 1 [facility] [...] 00:00 [place] 00 :00 Medical Branch warfarin 2023-0 Yes 1mg QD Take [address] [facility] (COUMADIN, 2-04 by mouth [facility]) 1 13:52: daily. Medi tyrone MG tablet 50 [place] warfarin 0 Yes 1mg QD Take [address] [facility] (COUMADIN, 2-04 by mouth [facility]) 1 13:52: daily. Medi tyrone MG tablet 50 [place] warfarin 2022-0 Yes 1mg QD Take [address] [facility] (COUMADIN, 2-04 by mouth [facility]) 1 13:52: daily. Medi tyrone MG tablet 50 [place] warfarin 2022-0 Yes 1mg QD Take [address] [facility] (COUMADIN, 2-04 by mouth [facility]) 1 13:52: daily. Medi tyrone MG tablet 50 [place] alendronate 0 Yes Univer s 70 mg 1-26 ity of tablet 00:00: [place] [id number] Medical Branch zolpidem 10 0 Yes 1 tablet Un [facility] mg tablet 1-26 at bedtime ity of 00:00: as needed [place] [address] [facility] alendronate 0 Yes [facility] 70 mg 1-26 ity of tablet 00:00: [place] [address] [facility] zolpidem 10 2022-0 Yes 1 tablet [facility] mg tablet 1-26 at bedtime ity of 00:00: as needed [place] [facility] alendronate 2022-0 Yes [facility] 70 mg 1-26 ity of tablet 00:00: [place] [address] [facility] zolpidem 10 2022-0 Yes 1 tablet [facility] mg tablet 1-26 at bedtime ity of 00:00: as needed [place] [facility] alendronate 2022-0 Yes [facility] 70 mg 1-26 ity of tablet 00:00: [place] [address] [facility] zolpidem 10 2022-0 Yes 1 tablet [facility] mg tablet 1-26 at bedtime ity of 00:00: as needed [place] [address] [facility] alendronate 2022-0 Yes [facility] 70 mg 1-26 ity of tablet 00:00: [place] [address] [facility] zolpidem 10 2022-0 Yes 1 tablet [facility] mg tablet 1-26 at bedtime ity of 00:00: as needed [place] [address] [facility] alendronate 0 Yes [facility] 70 mg 1-26 ity of tablet 00:00: [place] [facility] zolpidem 10 2022-0 Yes 1 tablet [facility] mg tablet 1-26 at bedtime ity of 00:00: as needed [facility] Branch alendronate 2022-0 Yes [facility] 70 mg 1-26 ity of tablet 00:00: [place] [facility] zolpidem 10 2022-0 Yes 1 tablet [facility] mg tablet 1-26 at bedtime ity of 00:00: as needed [facility] Branch alendronate 2022-0 Yes [facility] 70 mg 1-26 ity of tablet 00:00: [place] [facility] zolpidem 10 2022-0 Yes 1 tablet [facility] mg tablet 1-26 at bedtime ity of 00:00: as needed [place] [facility] alendronate 2022-0 Yes [facility] 70 mg 1-26 ity of tablet 00:00: [place] [facility] zolpidem 10 2022-0 Yes 1 tablet [facility] mg tablet 1-26 at bedtime ity of 00:00: as needed [place] [facility] alendronate 2022-0 Yes [facility] 70 mg 1-26 ity of tablet 00:00: [place] [facility] zolpidem 10 2022-0 Yes 1 tablet [facility] mg tablet 1-26 at bedtime ity of 00:00: as needed [facility] Branch alendronate 2022-0 Yes [facility] 70 mg 1-26 ity of tablet 00:00: [place] [facility] zolpidem 10 2022-0 Yes 1 tablet [facility] mg tablet 1-26 at bedtime ity of 00:00: as needed [facility] Branch alendronate 2022-0 Yes [facility] 70 mg 1-26 ity of tablet 00:00: [place] [facility] zolpidem 10 2022-0 Yes 1 tablet [facility] mg tablet 1-26 at bedtime ity of 00:00: as needed [facility] Branch alendronate 2022-0 Yes [facility] 70 mg 1-26 ity of tablet 00:00: [place] [facility] zolpidem 10 2022-0 Yes 1 tablet [facility] mg tablet 1-26 at bedtime ity of 00:00: as needed [place] [facility] alendronate 0 Yes [facility] 70 mg 1-26 ity of tablet 00:00: [place] [facility] zolpidem 10 2022-0 Yes 1 tablet [facility] mg tablet 1-26 at bedtime ity of 00:00: as needed [facility] Branch alendronate 2022-0 Yes [facility] 70 mg 1-26 ity of tablet 00:00: [place] [facility] zolpidem 10 2022-0 Yes 1 tablet [facility] mg tablet 1-26 at bedtime ity of 00:00: as needed [place] [facility] alendronate 2022-0 Yes [facility] 70 mg 1-26 ity of tablet 00:00: [place] [facility] zolpidem 10 2022-0 Yes 1 tablet [facility] mg tablet 1-26 at bedtime ity of 00:00: as needed [place] [facility] alendronate 2022-0 Yes [facility] 70 mg 1-26 ity of tablet 00:00: [place] [address] [facility] zolpidem 10 2022-0 Yes 1 tablet [facility] mg tablet 1-26 at bedtime ity of 00:00: as needed [place] [address] [facility] alendronate 2022-0 Yes [facility] 70 mg 1-26 ity of tablet 00:00: [place] [address] [facility] zolpidem 10 2022-0 Yes 1 tablet [facility] mg tablet 1-26 at bedtime ity of 00:00: as needed [facility] Branch alendronate 2022-0 Yes [facility] 70 mg 1-26 ity of tablet 00:00: [place] [facility] zolpidem 10 2022-0 Yes 1 tablet [facility] mg tablet 1-26 at bedtime ity of 00:00: as needed [place] [address] [facility] alendronate 2022-0 Yes [facility] 70 mg 1-26 ity of tablet 00:00: [place] [address] [facility] zolpidem 10 2022-0 Yes 1 tablet [facility] mg tablet 1-26 at bedtime ity of 00:00: as needed [place] [address] [facility] alendronate 2022-0 Yes [facility] 70 mg 1-26 ity of tablet 00:00: [place] [address] [facility] zolpidem 10 2022-0 Yes 1 tablet [facility] mg tablet 1-26 at bedtime ity of 00:00: as needed [place] [facility] alendronate 2022-0 Yes [facility] 70 mg 1-26 ity of tablet 00:00: [place] [facility] zolpidem 10 2022-0 Yes 1 tablet [facility] mg tablet 1-26 at bedtime ity of 00:00: as needed [place] [facility] alendronate 2022-0 Yes [facility] 70 mg 1-26 ity of tablet 00:00: [place] [facility] zolpidem 10 2022-0 Yes 1 tablet [facility] mg tablet 1-26 at bedtime ity of 00:00: as needed [place] [facility] alendronate 2022-0 Yes [facility] 70 mg 1-26 ity of tablet 00:00: [place] [facility] zolpidem 10 2022-0 Yes 1 tablet [facility] mg tablet 1-26 at bedtime ity of 00:00: as needed [place] [facility] alendronate 2022-0 Yes [facility] 70 mg 1-26 ity of tablet 00:00: [place] [facility] zolpidem 10 2022-0 Yes 1 tablet [facility] mg tablet 1-26 at bedtime ity of 00:00: as needed [place] [facility] alendronate 2022-0 Yes [facility] 70 mg 1-26 ity of tablet 00:00: [place] [address] [facility] zolpidem 10 2022-0 Yes 1 tablet [facility] mg tablet 1-26 at bedtime ity of 00:00: as needed [place] [facility] alendronate 2022-0 Yes [facility] 70 mg 1-26 ity of tablet 00:00: [place] [facility] zolpidem 10 2022-0 Yes 1 tablet [facility] mg tablet 1-26 at bedtime ity of 00:00: as needed [place] [facility] alendronate 2022-0 Yes [facility] 70 mg 1-26 ity of tablet 00:00: [place] [address] [facility] zolpidem 10 2022-0 Yes 1 tablet [facility] mg tablet 1-26 at bedtime ity of 00:00: as needed [place] [facility] alendronate 2022-0 Yes [facility] 70 mg 1-26 ity of tablet 00:00: [place] [facility] zolpidem 10 2022-0 Yes 1 [...] 70 mg 1-26 ity of tablet 00:00: [place] [facility] zolpidem 10 2022-0 Yes 1 tablet [facility] mg tablet 1-26 at bedtime ity of 00:00: as needed [facility] Branch alendronate 2022-0 Yes [facility] 70 mg 1-26 ity of tablet 00:00: [place] [facility] zolpidem 10 2022-0 Yes 1 tablet [facility] mg tablet 1-26 at bedtime ity of 00:00: as needed [facility] Branch alendronate 2022-0 Yes [facility] 70 mg 1-26 ity of tablet 00:00: [place] [facility] zolpidem 10 2022-0 Yes 1 tablet [facility] mg tablet 1-26 at bedtime ity of 00:00: as needed [place] [facility] alendronate 2022-0 Yes [facility] 70 mg 1-26 ity of tablet 00:00: [place] [facility] zolpidem 10 2022-0 Yes 1 tablet [facility] mg tablet 1-26 at bedtime ity of 00:00: as needed [facility] Branch alendronate 2022-0 Yes [facility] 70 mg 1-26 ity of tablet 00:00: [place] [facility] zolpidem 10 2022-0 Yes 1 tablet [facility] mg tablet 1-26 at bedtime ity of 00:00: as needed [facility] Branch alendronate 2022-0 Yes [facility] 70 mg 1-26 ity of tablet 00:00: [place] [address] [facility] zolpidem 10 2022-0 Yes 1 tablet [facility] mg tablet 1-26 at bedtime ity of 00:00: as needed [facility] Branch alendronate 2022-0 Yes [facility] 70 mg 1-26 ity of tablet 00:00: [place] [address] [facility] zolpidem 10 2022-0 Yes 1 tablet [facility] mg tablet 1-26 at bedtime ity of 00:00: as needed [place] [facility] alendronate 2022-0 Yes [facility] 70 mg 1-26 ity of tablet 00:00: [place] [facility] zolpidem 10 2022-0 Yes 1 tablet [facility] mg tablet 1-26 at bedtime ity of 00:00: as needed [place] [facility] alendronate 2022-0 Yes [facility] 70 mg 1-26 ity of tablet 00:00: [place] [address] [facility] zolpidem 10 2022-0 Yes 1 tablet [facility] mg tablet 1-26 at bedtime ity of 00:00: as needed [place] [facility] alendronate 2022-0 Yes [facility] 70 mg 1-26 ity of tablet 00:00: [place] [address] [facility] zolpidem 10 2022-0 Yes 1 tablet [facility] mg tablet 1-26 at bedtime ity of 00:00: as needed [place] [facility] alendronate 2022-0 Yes [facility] 70 mg 1-26 ity of tablet 00:00: [place] [address] [facility] zolpidem 10 2022-0 Yes 1 tablet [facility] mg tablet 1-26 at bedtime ity of 00:00: as needed [place] [facility] alendronate 2022-0 Yes [facility] 70 mg 1-26 ity of tablet 00:00: [place] [address] [facility] zolpidem 10 2022-0 Yes 1 tablet [facility] mg tablet 1-26 at bedtime ity of 00:00: as needed [place] [facility] alendronate 2022-0 Yes [facility] 70 mg 1-26 ity of tablet 00:00: [place] [address] [facility] zolpidem 10 2022-0 Yes 1 tablet [facility] mg tablet 1-26 at bedtime ity of 00:00: as needed [place] [facility] alendronate 2022-0 Yes [facility] 70 mg 1-26 ity of tablet 00:00: [place] [address] [facility] zolpidem 10 2022-0 Yes 1 tablet [facility] mg tablet 1-26 at bedtime ity of 00:00: as needed [place] [address] [facility] alendronate 2022-0 Yes [facility] 70 mg 1-26 ity of tablet 00:00: [place] [facility] zolpidem 10 2022-0 Yes 1 tablet [facility] mg tablet 1-26 at bedtime ity of 00:00: as needed [facility] alendronate 2022-0 Yes [facility] 70 mg 1-26 ity of tablet 00:00: [place] [facility] zolpidem 10 2022-0 Yes 1 tablet [facility] mg tablet 1-26 at bedtime ity of 00:00: as needed [facility] alendronate 2022-0 Yes [facility] 70 mg 1-26 ity of tablet 00:00: [place] [facility] zolpidem 10 2022-0 Yes 1 tablet [facility] mg tablet 1-26 at bedtime ity of 00:00: as needed [facility] alendronate 2022-0 Yes [facility] 70 mg 1-26 ity of tablet 00:00: [place] [facility] zolpidem 10 2022-0 Yes 1 tablet [facility] mg tablet 1-26 at bedtime ity of 00:00: as needed [place] [facility] alendronate 2022-0 Yes [facility] 70 mg 1-26 ity of tablet 00:00: [place] [facility] zolpidem 10 2022-0 Yes 1 tablet [facility] mg tablet 1-26 at bedtime ity of 00:00: as needed [place] [facility] alendronate 2022-0 Yes [facility] 70 mg 1-26 ity of tablet 00:00: [place] [facility] zolpidem 10 2022-0 Yes 1 tablet [facility] mg tablet 1-26 at bedtime ity of 00:00: as needed [facility] Branch alendronate 2022-0 Yes [facility] 70 mg 1-26 ity of tablet 00:00: [place] [facility] zolpidem 10 2022-0 Yes 1 tablet [facility] mg tablet 1-26 at bedtime ity of 00:00: as needed [facility] alendronate 2022-0 Yes [facility] 70 mg 1-26 ity of tablet 00:00: [place] [address] [facility] zolpidem 10 2022-0 Yes 1 tablet [facility] mg tablet 1-26 at bedtime ity of 00:00: as needed [place] [facility] alendronate 2023-0 Yes [facility] 70 mg 1-26 ity of tablet 00:00: [place] [facility] zolpidem 10 2022-0 Yes 1 tablet [facility] mg tablet 1-26 at bedtime ity of 00:00: as needed [facility] alendronate 0 Yes [facility] 70 mg 1-26 ity of tablet 00:00: [place] [facility] zolpidem 10 2022-0 Yes 1 tablet [facility] mg tablet 1-26 at bedtime ity of 00:00: as needed [place] [facility] alendronate 2022-0 Yes [facility] 70 mg 1-26 ity of tablet 00:00: [place] [facility] zolpidem 10 2022-0 Yes 1 tablet [facility] mg tablet 1-26 at bedtime ity of 00:00: as needed [place] [facility] alendronate 2022-0 Yes [facility] 70 mg 1-26 ity of tablet 00:00: [place] [address] [facility] zolpidem 10 2022-0 Yes 1 tablet [facility] mg tablet 1-26 at bedtime ity of 00:00: as needed [place] [facility] alendronate 2022-0 Yes [facility] 70 mg 1-26 ity of tablet 00:00: [place] [address] [facility] zolpidem 10 2022-0 Yes 1 tablet [facility] mg tablet 1-26 at bedtime ity of 00:00: as needed [place] [facility] alendronate 2022-0 Yes [facility] 70 mg 1-26 ity of tablet 00:00: [place] [facility] zolpidem 10 2022-0 Yes 1 tablet [facility] mg tablet 1-26 at bedtime ity of 00:00: as needed [facility] Branch alendronate 2022-0 Yes [facility] 70 mg 1-26 ity of tablet 00:00: [place] [address] [facility] zolpidem 10 2022-0 Yes 1 tablet [facility] mg tablet 1-26 at bedtime ity of 00:00: as needed [place] [facility] alendronate 2022-0 Yes [facility] 70 mg 1-26 ity of tablet 00:00: [place] [address] [facility] zolpidem 10 2022-0 Yes 1 tablet [facility] mg tablet 1-26 at bedtime ity of 00:00: as needed [place] [address] [facility] alendronate 0 Yes [facility] 70 mg 1-26 ity of tablet 00:00: [place] [facility] zolpidem 10 2022-0 Yes 1 tablet [facility] mg tablet 1-26 at bedtime ity of 00:00: as needed [place] [facility] alendronate 2022-0 Yes [facility] 70 mg 1-26 ity of tablet 00:00: [place] [facility] zolpidem 10 2022-0 Yes 1 tablet [facility] mg tablet 1-26 at bedtime ity of 00:00: as needed [place] [address] [facility] alendronate 2022-0 Yes [facility] 70 mg 1-26 ity of tablet 00:00: [place] [address] [facility] zolpidem 10 2022-0 Yes 1 tablet [facility] mg tablet 1-26 at bedtime ity of 00:00: as needed [place] [address] [facility] alendronate 2022-0 Yes [facility] 70 mg 1-26 ity of tablet 00:00: [place] [address] [facility] zolpidem 10 2022-0 Yes 1 tablet [facility] mg tablet 1-26 at bedtime ity of 00:00: as needed [place] [address] [facility] alendronate 0 Yes [facility] 70 mg 1-26 ity of tablet 00:00: [place] [address] [facility] zolpidem 10 0 Yes 1 tablet [facility] mg tablet 1-26 at bedtime ity of 00:00: as needed [place] [address] [facility] metoprolol 2022- No [id number] 25mg Take 1 [facility] succinate 1-26 -27 tablet by ity of XL (TOPROL 00:00: 04:59 mouth in [place] XL) 25 mg 00 :00 the Medical 24 hr morning Branch tablet for 90 days. metoprolol 2022- No [id number] 25mg Take 1 [facility] succinate 1-26 -27 tablet by ity of XL (TOPROL 00:00: 04:59 mouth in [place] XL) 25 mg 00 :00 the Medical 24 hr morning Branch tablet for 90 days. metoprolol 2022- No [id number] 25mg Take 1 [facility] succinate 1-26 -27 tablet by ity of XL (TOPROL 00:00: 04:59 mouth in [place] XL) 25 mg 00 :00 the Medical 24 hr morning Branch tablet for 90 days. metoprolol 2022- No [id number] 25mg Take 1 [facility] succinate 1-26 04-27 tablet by ity of XL (TOPROL 00:00: 04:59 mouth in [place] XL) 25 mg 00 :00 the Medical 24 hr morning Branch tablet for 90 days. metoprolol 2022- No [id number] 25mg Take 1 [facility] succinate 1-26 -27 tablet by ity of XL (TOPROL 00:00: 04:59 mouth in [place] XL) 25 mg 00 :00 the Medical 24 hr morning Branch tablet for 90 days. metoprolol 2022- No [id number] 25mg Take 1 [facility] succinate 1-26 -27 tablet by ity of XL (TOPROL 00:00: 04:59 mouth in [place] XL) 25 mg 00 :00 the Medical 24 hr morning Branch tablet for 90 days. metoprolol 2022- No [id number] 25mg Take 1 [facility] succinate 1-26 -27 tablet by ity of XL (TOPROL 00:00: 00:00 mouth in [place] XL) 25 mg 00 :00 the Medical 24 hr morning Branch tablet for 90 days. metoprolol 2022- No [id number] 25mg Take 1 [facility] succinate 1-26 -27 tablet by ity of XL (TOPROL 00:00: 00:00 mouth in [place] XL) 25 mg 00 :00 the Medical 24 hr morning Branch tablet for 90 days. metoprolol 2022- No [id number] 25mg Take 1 [facility] succinate 1-26 -27 tablet by ity of XL (TOPROL 00:00: 00:00 mouth in [place] XL) 25 mg 00 :00 the Medical 24 hr morning Branch tablet for 90 days. metoprolol 2022- No [id number] 25mg Take 1 [facility] succinate 1-26 02-27 tablet by ity of XL (TOPROL 00:00: 00:00 mouth in [place] XL) 25 mg 00 :00 the Medical 24 hr morning Branch tablet for 90 days. metoprolol 2022- No [id number] 25mg Take 1 [facility] succinate 05-10-27 tablet by ity of XL (TOPROL 00:00: 00:00 mouth in [place] XL) 25 mg 00 :00 the Medical 24 hr morning Branch tablet for 90 days. Diclofenac Yes [facility] Sodium 1 % 1-25 ity of gel 00:00: [place] 00 [facility] Diclofenac 0 3- No [facility] Sodium 1 % 1-25 - ity of gel 00:00: 00:00 [place] 00 :00 Medical Branch Diclofenac 0 2022- No [facility] Sodium 1 % 1-25 - ity of gel 00:00: 00:00 [place] 00 :00 [facility] Branch Diclofenac 0 2022- No [facility] Sodium 1 % 1-25 - ity of gel 00:00: 00:00 [place] 00 :00 [facility] Branch Diclofenac 0 2022- No [facility] Sodium 1 % 1-25 - ity of gel 00:00: 00:00 [place] 00 :00 [facility] Branch Diclofenac 0 2022- No [facility] Sodium 1 % 125 - ity of gel 00:00: 00:00 [place] 00 :00 [facility] Branch ezetimibe 2021-04 Yes 10mg Take 1 [facility] (ZETIA) 10 2-19 tablet by ity of mg tablet 00:00: mouth [place] 00 the Medical morning. Branch metoprolol 2021-04 Yes [id number] 25mg Take 1 [facility] tartrate 25 2-19 tablet by ity of mg tablet 00:00: mouth [place] 00 the Medical morning Branch and 1 tablet in the evening. ezetimibe 2021-04 Yes 10mg Take 1 [facility] (ZETIA) 10 2-19 tablet by [facility] of mg tablet 00:00: mouth [place] 00 the Medical morning. Branch metoprolol 2021-04 Yes [id number] 25mg Take 1 [facility] tartrate 25 2-19 tablet by [facility] of mg tablet 00:00: mouth [place] 00 the Medical morning Branch and 1 tablet in the evening. ezetimibe 2021-04 Yes 10mg Take 1 [facility] (ZETIA) 10 2-19 tablet by [facility] of mg tablet 00:00: mouth [place] 00 the Medical morning. Branch metoprolol 2021-04 Yes [id number] 25mg Take 1 [facility] tartrate 25 2-19 tablet by [facility] of mg tablet 00:00: mouth [place] 00 the Medical morning Branch and 1 tablet in the evening. ezetimibe 2021-04 Yes 10mg Take 1 [facility] (ZETIA) 10 2-19 tablet by [facility] of mg tablet 00:00: mouth [place] 00 the Medical morning. Branch metoprolol 2021-04 Yes [id number] 25mg Take 1 [facility] tartrate 25 2-19 tablet by [facility] of mg tablet 00:00: mouth [place] 00 the Medical morning Branch and 1 tablet in the evening. ezetimibe 2021-04 Yes 10mg Take 1 [facility] (ZETIA) 10 2-19 tablet by [facility] of mg tablet 00:00: mouth [place] 00 the Medical morning. Branch metoprolol 2021-04 Yes [id number] 25mg Take 1 [facility] tartrate 25 2-19 tablet by [facility] of mg tablet 00:00: mouth [place] 00 the Medical morning Branch and 1 tablet in the evening. ezetimibe 2021-04 Yes 10mg Take 1 [facility] (ZETIA) 10 2-19 tablet by [facility] of mg tablet 00:00: mouth [place] 00 the Medical morning. Branch metoprolol 2021-04 Yes [id number] 25mg Take 1 [facility] tartrate 25 2-19 tablet by [facility] of mg tablet 00:00: mouth [place] 00 the Medical morning Branch and 1 tablet in the evening. ezetimibe 2021-04 Yes 10mg Take 1 [facility] (ZETIA) 10 2-19 tablet by [facility] of mg tablet 00:00: mouth [place] 00 the Medical morning. Branch metoprolol 2021-04 Yes [id number] 25mg Take 1 [facility] tartrate 25 [...] the Medical morning. Branch metoprolol 2021-04- No [id number] 25mg Take 1 [facility] tartrate 25 2-03 05-26 tablet by it y of mg tablet 00:00: 00:00 mouth in [place] 00 :00 the Medical morning Branch and 1 tablet in the evening. metoprolol 2021-04- No [id number] 25mg Take 1 [facility] tartrate 25 2-03 05- tablet by it y of mg tablet 00:00: 00:00 mouth in [place] 00 :00 the Medical morning Branch and 1 tablet in the evening. warfarin 2021-04 Yes [id number] 1mg Take 1 [facility] mg tablet 2-01 tablet by ity o f 00:00: mouth [place] 00 every Medical evening. Branch Alternate take 1mg x3 days, then 2mg x 4 days warfarin 2021-04 Yes [id number] 1mg Take 1 [facility] mg tablet 2-01 tablet by ity o f 00:00: mouth [place] 00 every Medical evening. Branch Alternate take 1mg x3 days, then 2mg x 4 days dofetilide 2021-04 Yes [id number] 125ug Take 1 [facility] 125 mcg 2-01 capsule by ity of capsule 00:00: mouth [place] 00 every 12 Medical (twelve) Branch hours. warfarin 2021-04 Yes [id number] 1mg Take 1 [facility] mg tablet 2-01 tablet by ity o f 00:00: mouth [place] 00 every Medical evening. Branch Alternate take 1mg x3 days, then 2mg x 4 days dofetilide 2021-04 Yes [id number] 125ug Take 1 [facility] 125 mcg 2-01 capsule by ity of capsule 00:00: mouth [place] 00 every 12 Medical (twelve) Branch hours. warfarin 2021-04 Yes [id number] 1mg Take 1 [facility] mg tablet 2-01 tablet by ity o f 00:00: mouth [place] 00 every Medical evening. Branch Alternate take 1mg x3 days, then 2mg x 4 days dofetilide 2021-04 Yes [id number] 125ug Take 1 [facility] 125 mcg 2-01 capsule by ity of capsule 00:00: mouth [place] 00 every 12 Medical (twelve) Branch hours. warfarin 2021-04 Yes [id number] 1mg Take 1 [facility] mg tablet 2-01 tablet by ity o f 00:00: mouth [place] 00 every Medical evening. Branch Alternate take 1mg x3 days, then 2mg x 4 days dofetilide 2021-04 Yes [id number] 125ug Take 1 [facility] 125 mcg 2-01 capsule by ity of capsule 00:00: mouth [place] 00 every 12 Medical (twelve) Branch hours. warfarin 2021-04 Yes [id number] 1mg Take 1 [facility] mg tablet 2-01 tablet by ity o f 00:00: mouth [place] 00 every Medical evening. Branch Alternate take 1mg x3 days, then 2mg x 4 days dofetilide 2021-04 Yes [id number] 125ug Take 1 [facility] 125 mcg 2-01 capsule by ity of capsule 00:00: mouth [place] 00 every 12 Medical (twelve) Branch hours. warfarin 2021-04 Yes [id number] 1mg Take 1 [facility] mg tablet 2-01 tablet by ity o f 00:00: mouth [place] 00 every Medical evening. Branch Alternate take 1mg x3 days, then 2mg x 4 days dofetilide 2021-04 Yes [id number] 125ug Take 1 [facility] 125 mcg 2-01 capsule by ity of capsule 00:00: mouth [place] 00 every 12 Medical (twelve) Branch hours. warfarin 2021-04 Yes [id number] 1mg Take 1 [facility] mg tablet 2-01 tablet by ity o f 00:00: mouth [place] 00 every Medical evening. Branch Alternate take 1mg x3 days, then 2mg x 4 days dofetilide 2021-04 Yes [id number] 125ug Take 1 [facility] 125 mcg 2-01 capsule by ity of capsule 00:00: mouth [place] 00 every 12 Medical (twelve) Branch hours. warfarin 2021-04 Yes [id number] 1mg Take 1 [facility] mg tablet 2-01 tablet by ity o f 00:00: mouth [place] 00 every Medical evening. Branch Alternate take 1mg x3 days, then 2mg x 4 days dofetilide 2021-04 Yes [id number] 125ug Take 1 [facility] 125 mcg 2-01 capsule by ity of capsule 00:00: mouth [place] 00 every 12 Medical (twelve) Branch hours. warfarin 2021-04 Yes [id number] 1mg Take 1 [facility] mg tablet 2-01 tablet by ity o f 00:00: mouth [place] 00 every Medical evening. Branch Alternate take 1mg x3 days, then 2mg x 4 days dofetilide 2021-04 Yes [id number] 125ug Take 1 [facility] 125 mcg 2-01 capsule by ity of capsule 00:00: mouth [place] 00 every 12 Medical (twelve) Branch hours. warfarin 2021-04 Yes [id number] 1mg Take 1 [facility] mg tablet 2-01 tablet by ity o f 00:00: mouth [place] 00 every Medical evening. Branch Alternate take 1mg x3 days, then 2mg x 4 days dofetilide 2021-04 Yes [id number] 125ug Take 1 [facility] 125 mcg 2-01 capsule by ity of capsule 00:00: mouth [place] 00 every 12 Medical (twelve) Branch hours. warfarin 2021-04 Yes [id number] 1mg Take 1 [facility] mg tablet 2-01 tablet by ity o f 00:00: mouth [place] 00 every Medical evening. Branch Alternate take 1mg x3 days, then 2mg x 4 days dofetilide 2021-04 Yes [id number] 125ug Take 1 [facility] 125 mcg 2-01 capsule by ity of capsule 00:00: mouth [place] 00 every 12 Medical (twelve) Branch hours. warfarin 2021-04 Yes [id number] 1mg Take 1 [facility] mg tablet 2-01 tablet by ity o f 00:00: mouth [place] 00 every Medical evening. Branch Alternate take 1mg x3 days, then 2mg x 4 days dofetilide 2021-04 Yes [id number] 125ug Take 1 [facility] 125 mcg 2-01 capsule by ity of capsule 00:00: mouth [place] 00 every 12 Medical (twelve) Branch hours. warfarin 2021-04 Yes [id number] 1mg Take 1 [facility] mg tablet 2-01 tablet by ity o f 00:00: mouth [place] 00 every Medical evening. Branch Alternate take 1mg x3 days, then 2mg x 4 days dofetilide 2021-04 Yes [id number] 125ug Take 1 [facility] 125 mcg 2-01 capsule by ity of capsule 00:00: mouth [place] 00 every 12 Medical (twelve) Branch hours. warfarin 2021-04 Yes [id number] 1mg Take 1 [facility] mg tablet 2-01 tablet by ity o f 00:00: mouth [place] 00 every Medical evening. Branch Alternate take 1mg x3 days, then 2mg x 4 days dofetilide 2021-04 Yes [id number] 125ug Take 1 [facility] 125 mcg 2-01 capsule by ity of capsule 00:00: mouth [place] 00 every 12 Medical (twelve) Branch hours. warfarin 2021-04 Yes [id number] 1mg Take 1 [facility] mg tablet 2- tablet by ity o f 00:00: mouth [place] 00 every Medical evening. Branch Alternate take 1mg x3 days, then 2mg x 4 days dofetilide 2021-04 Yes [id number] 125ug Take 1 [facility] 125 mcg 2-01 capsule by ity of capsule 00:00: mouth [place] 00 every 12 Medical (twelve) Branch hours. warfarin 2021-04- No [id number] 1mg Take 1 [facility] mg tablet 2-04 16- tablet by ity of 00:00: 00:00 mouth [place] 00 :00 every Medical evening. Branch Alternate take 1mg x3 days, then 2mg x 4 days dofetilide 2021-04- No [id number] 125ug Take 1 [facility] 125 mcg 2-04 16- capsule by ity o f capsule 00:00: 00:00 mouth [place] 00 :00 every 12 Medical (twelve) Branch hours. warfarin 2021-04- No [id number] 1mg Take 1 [facility] tablet 2-04 16- tablet by [facility] 00:00: 00:00 mouth [place] 00 :00 every Medical evening. Branch Alternate take 1mg x3 days, then 2mg x 4 days dofetilide 2021-04- No [id number] 125ug Take 1 [facility] 125 mcg 2-04 16- capsule by [facility] o f capsule 00:00: 00:00 mouth [place] 00 :00 every 12 Medical (twelve) Branch hours. warfarin 2021-04- No [id number] 1mg Take 1 [facility] mg tablet 05-16 tablet by [facility] 00:00: 00:00 mouth [place] 00 :00 every Medical evening. Branch Alternate take 1mg x3 days, then 2mg x 4 days dofetilide 2021-04- No [id number] 125ug Take 1 [facility] 125 mcg 05-16 capsule by [facility] o f capsule 00:00: 00:00 mouth [place] 00 :00 every 12 Medical (twelve) Branch hours. warfarin 2021-04- No [id number] 1mg Take 1 [facility] mg tablet 05-16 tablet by [facility] 00:00: 00:00 mouth [place] 00 :00 every Medical evening. Branch Alternate take 1mg x3 days, then 2mg x 4 days dofetilide 2021-04- No [id number] 125ug Take 1 [facility] 125 mcg 05-16 capsule by [facility] o f capsule 00:00: 00:00 mouth [place] 00 :00 every 12 Medical (twelve) Branch hours. warfarin 2021-04- No [id number] 1mg Take 1 [facility] mg tablet 05-16 tablet by [facility] 00:00: 00:00 mouth [place] 00 :00 every Medical evening. Branch Alternate take 1mg x3 days, then 2mg x 4 days dofetilide 2021-04- No [id number] 125ug Take 1 [facility] 125 mcg 05-16 capsule by [facility] o f capsule 00:00: 00:00 mouth [place] 00 :00 every 12 Medical (twelve) Branch hours. warfarin 2021-04 Yes [id number] 1mg Take 1 [facility] mg tablet 1-01 tablet by [facility] o f 00:00: mouth [place] 00 every Medical evening. Branch Alternate take 1mg x4 days, then 2mg x 3 days warfarin 2021-04 Yes [id number] 1mg Take 1 [facility] mg tablet 1-01 tablet by [facility] o f 00:00: mouth [place] 00 every Medical evening. Branch Alternate take 1mg x4 days, then 2mg x 3 days warfarin 2021-04 Yes [id number] 1mg Take 1 [facility] mg tablet 1-01 tablet by [facility] o f 00:00: mouth [place] 00 every Medical evening. Branch Alternate take 1mg x4 days, then 2mg x 3 days warfarin 2021-04 Yes [id number] 1mg Take 1 [facility] mg tablet 1-01 tablet by [facility] o f 00:00: mouth [place] 00 every Medical evening. Branch Alternate take 1mg x4 days, then 2mg x 3 days warfarin 2021-04 Yes [id number] 1mg Take 1 [facility] mg tablet 1-01 tablet by [facility] o f 00:00: mouth [place] 00 every Medical evening. Branch Alternate take 1mg x4 days, then 2mg x 3 days warfarin 2021-04 Yes [id number] 1mg Take 1 [facility] mg tablet 1- tablet by [facility] o f 00:00: mouth [place] 00 every Medical evening. Branch Alternate take 1mg x4 days, then 2mg x 3 days warfarin 2021-04 Yes [id number] 1mg Take 1 [facility] mg tablet 1- tablet by [facility] o f 00:00: mouth [place] 00 every Medical evening. Branch Alternate take 1mg x4 days, then 2mg x 3 days warfarin 2021-04 Yes [id number] 1mg Take 1 [facility] mg tablet 1- tablet by [facility] o f 00:00: mouth [place] 00 every Medical evening. Branch Alternate take 1mg x4 days, then 2mg x 3 days warfarin 2021-04 Yes [id number] 1mg Take 1 [facility] mg tablet 1- tablet by [facility] o f 00:00: mouth [place] 00 every Medical evening. Branch Alternate take 1mg x4 days, then 2mg x 3 days warfarin 2021-04 Yes [id number] 1mg Take 1 [facility] mg tablet 1-01 tablet by [facility] o f 00:00: mouth [place] 00 every Medical evening. Branch Alternate take 1mg x4 days, then 2mg x 3 days warfarin 2021-04 Yes [id number] 1mg Take 1 [facility] mg tablet 1-01 tablet by [facility] o f 00:00: mouth [place] 00 every Medical evening. Branch Alternate take 1mg x4 days, then 2mg x 3 days warfarin 2021-04- [id number] 1mg Take 1 [facility] mg tablet 1- 12- tablet by [facility] of 00:00: 00:00 mouth [place] 00 :00 every Medical evening. Branch Alternate take 1mg x4 days, then 2mg x 3 days warfarin 2021-04 Yes [id number] 1mg Take 1 [facility] mg tablet 0-17 tablet by [facility] o f 00:00: mouth [place] 00 every Medical evening. Branch Alternate take 1mg x4 days, then 2mg x 3 days warfarin 2021-04- No [id number] 1mg Take 1 [facility] mg tablet 0-17 11-01 tablet by [facility] of 00:00: 00:00 mouth [...] 00 the Medical morning. Branch ezetimibe 2-0 2- No 10mg Take 1 [facility] (ZETIA) 10 9-02 12-19 tablet by [facility] mg tablet 00:00: 00:00 mouth [place] 00 :00 the Medical morning. Branch warfarin 0 Yes [id number] 1mg Take 1 [facility] mg tablet 8-24 tablet by [facility] o f 00:00: mouth [place] 00 every Medical evening. Branch Alternate take 1mg x2days, then 2mg x 1 day warfarin 1 0 Yes [id number] 1mg Take 1 [facility] mg tablet 8-24 tablet by [facility] o f 00:00: mouth [place] 00 every Medical evening. Branch Alternate take 1mg x2days, then 2mg x 1 day warfarin 1 0 Yes [id number] 1mg Take 1 [facility] mg tablet 8-24 tablet by [facility] o f 00:00: mouth [place] 00 every Medical evening. Branch Alternate take 1mg x2days, then 2mg x 1 day warfarin 1 0 Yes [id number] 1mg Take 1 [facility] mg tablet 8-24 tablet by [facility] o f 00:00: mouth [place] 00 every Medical evening. Branch Alternate take 1mg x2days, then 2mg x 1 day warfarin 1 2021-0 Yes [id number] 1mg Take 1 [facility] mg tablet 8-24 tablet by [facility] o f 00:00: mouth [place] 00 every Medical evening. Branch Alternate take 1mg x2days, then 2mg x 1 day warfarin 1 2022-0 Yes [id number] 1mg Take 1 [facility] mg tablet 8-24 tablet by [facility] o f 00:00: mouth [place] 00 every Medical evening. Branch Alternate take 1mg x2days, then 2mg x 1 day warfarin Yes [id number] 1mg Take 1 [facility] mg tablet 8-24 tablet by [facility] o f 00:00: mouth [place] 00 every Medical evening. Branch Alternate take 1mg x2days, then 2mg x 1 day warfarin Yes [id number] 1mg Take 1 [facility] mg tablet 8-24 tablet by [facility] o f 00:00: mouth [place] 00 every Medical evening. Branch Alternate take 1mg x2days, then 2mg x 1 day warfarin Yes [id number] 1mg Take 1 [facility] mg tablet 8-24 tablet by [facility] o f 00:00: mouth [place] 00 every Medical evening. Branch Alternate take 1mg x2days, then 2mg x 1 day warfarin Yes [id number] 1mg Take 1 [facility] mg tablet 8-24 tablet by [facility] o f 00:00: mouth [place] 00 every Medical evening. Branch Alternate take 1mg x2days, then 2mg x 1 day warfarin Yes [id number] 1mg Take 1 [facility] mg tablet 8-24 tablet by [facility] o f 00:00: mouth [place] 00 every Medical evening. Branch Alternate take 1mg x2days, then 2mg x 1 day warfarin Yes [id number] 1mg Take 1 [facility] mg tablet 8-24 tablet by [facility] o f 00:00: mouth [place] 00 every Medical evening. Branch Alternate take 1mg x2days, then 2mg x 1 day warfarin Yes [id number] 1mg Take 1 [facility] mg tablet 8-24 tablet by [facility] o f 00:00: mouth [place] 00 every Medical evening. Branch Alternate take 1mg x2days, then 2mg x 1 day warfarin 1 2021- No [id number] 1mg Take 1 [facility] mg tablet 8-24 10-17 tablet by [facility] 00:00: 00:00 mouth [place] 00 :00 every Medical evening. Branch Alternate take 1mg x2days, then 2mg x 1 day warfarin 1 2021- No [id number] 2mg Take 2 [facility] mg tablet 8-23 08-24 tablets by [facility] 00:00: 00:00 mouth [place] 00 :00 every Medical evening. Branch dofetilide 2021- No [id number] 125ug Take 1 [facility] 125 mcg 8-19 08-27 capsule by [facility] o f capsule 00:00: 04:59 mouth [place] 00 :00 every 12 Medical (twelve) Branch hours for 7 days. dofetilide 2- No [id number] 125ug Take 1 [facility] 125 mcg 8-19 08-27 capsule by [facility] o f capsule 00:00: 04:59 mouth [place] 00 :00 every 12 Medical (twelve) Branch hours for 7 days. dofetilide 2021- No [id number] 125ug Take 1 [facility] 125 mcg 8-17 11-16 capsule by [facility] o f capsule 00:00: 05:59 mouth [place] 00 :00 every 12 Medical (twelve) Branch hours for 90 days. dofetilide 2- No [id number] 125ug Take 1 [facility] 125 mcg 8-17 11-16 capsule by [facility] o f capsule 00:00: 05:59 mouth [place] 00 :00 every 12 Medical (twelve) Branch hours for 90 days. dofetilide 2021- No [id number] 125ug Take 1 [facility] 125 mcg 8-17 11-16 capsule by [facility] o f capsule 00:00: 05:59 mouth [place] 00 :00 every 12 Medical (twelve) Branch hours for 90 days. dofetilide 2- No [id number] 125ug Take 1 [facility] 125 mcg 8-17 11-16 capsule by [facility] o f capsule 00:00: 05:59 mouth [place] 00 :00 every 12 Medical (twelve) Branch hours for 90 days. dofetilide 2021- No [id number] 125ug Take 1 [facility] 125 mcg 8-17 11-16 capsule by [facility] o f capsule 00:00: 05:59 mouth [place] 00 :00 every 12 Medical (twelve) Branch hours for 90 days. dofetilide 2021- No [id number] 125ug Take 1 [facility] 125 mcg 8-17 11-16 capsule by [facility] o f capsule 00:00: 05:59 mouth [place] 00 :00 every 12 Medical (twelve) Branch hours for 90 days. dofetilide 2021- No [id number] 125ug Take 1 [facility] 125 mcg 8-17 11-16 capsule by [facility] o f capsule 00:00: 05:59 mouth [place] 00 :00 every 12 Medical (twelve) Branch hours for 90 days. dofetilide 2021- No [id number] 125ug Take 1 [facility] 125 mcg 8-17 11-16 capsule by [facility] o f capsule 00:00: 05:59 mouth [place] 00 :00 every 12 Medical (twelve) Branch hours for 90 days. dofetilide 2021- No [id number] 125ug Take 1 [facility] 125 mcg 8-17 11-16 capsule by [facility] o f capsule 00:00: 05:59 mouth [place] 00 :00 every 12 Medical (twelve) Branch hours for 90 days. dofetilide 2021- No [id number] 125ug Take 1 [facility] 125 mcg 8-17 11-16 capsule by [facility] o f capsule 00:00: 05:59 mouth [place] 00 :00 every 12 Medical (twelve) Branch hours for 90 days. dofetilide 2021- No [id number] 125ug Take 1 [facility] 125 mcg 8-17 11-16 capsule by [facility] o f capsule 00:00: 05:59 mouth [place] 00 :00 every 12 Medical (twelve) Branch hours for 90 days. dofetilide 2021- No [id number] 125ug Take 1 [facility] 125 mcg 8-17 11-16 capsule by [facility] o f capsule 00:00: 05:59 mouth [place] 00 :00 every 12 Medical (twelve) Branch hours for 90 days. dofetilide 2021- No [id number] 125ug Take 1 [facility] 125 mcg 8-17 11-16 capsule by [facility] o f capsule 00:00: 05:59 mouth [place] 00 :00 every 12 Medical (twelve) Branch hours for 90 days. dofetilide 2021- No [id number] 125ug Take 1 [facility] 125 mcg 8-17 11-16 capsule by [facility] o f capsule 00:00: 05:59 mouth [place] 00 :00 every 12 Medical (twelve) Branch hours for 90 days. dofetilide 2021- No [id number] 125ug Take 1 [facility] 125 mcg 8-17 11-16 capsule by [facility] o f capsule 00:00: 05:59 mouth [place] 00 :00 every 12 Medical (twelve) Branch hours for 90 days. dofetilide 2021-2- No [id number] 125ug Take 1 [facility] 125 mcg 8-17 11-16 capsule by [facility] o f capsule 00:00: 05:59 mouth [place] 00 :00 every 12 Medical (twelve) Branch hours for 90 days. dofetilide 2021-2- No [id number] 125ug Take 1 [facility] 125 mcg 8-17 11-16 capsule by [facility] o f capsule 00:00: 05:59 mouth [place] 00 :00 every 12 Medical (twelve) Branch hours for 90 days. dofetilide 2021-2- No [id number] 125ug Take 1 [facility] 125 mcg 8-17 11-16 capsule by [facility] o f capsule 00:00: 05:59 mouth [place] 00 :00 every 12 Medical (twelve) Branch hours for 90 days. dofetilide 2021-2- No [id number] 125ug Take 1 [facility] 125 mcg 8-17 11-16 capsule by [facility] o f capsule 00:00: 05:59 mouth [place] 00 :00 every 12 Medical (twelve) Branch hours for 90 days. dofetilide 2021-2- No [id number] 125ug Take 1 [facility] 125 mcg 8-17 11-16 capsule by [facility] o f capsule 00:00: 05:59 mouth [place] 00 :00 every 12 Medical (twelve) Branch hours for 90 days. atorvastati 0 Yes 80mg Take 1 [facility] ers n 80 mg 7-12 tablet by [facility] tablet 00:00: mouth at [place] [address] bedtime. Medical Branch atorvastati 2021-0 Yes 80mg Take 1 [facility] ers n 80 mg 7-12 tablet by [facility] tablet 00:00: mouth at [place] 00 bedtime. Medical Branch atorvastati 2021-0 Yes 80mg Take 1 [facility] ers n 80 mg 7-12 tablet by [facility] tablet 00:00: mouth at [place] 00 bedtime. Medical Branch atorvastati 0 Yes 80mg Take 1 [facility] ers n 80 mg 7-12 tablet by [facility] of tablet 00:00: mouth at [place] [address] bedtime. Medical Branch atorvastati 2021-0 Yes 80mg Take 1 [facility] ers n 80 mg 7-12 tablet by [facility] tablet 00:00: mouth at [place] [address] bedtime. Medical Branch atorvastati 2022-0 Yes 80mg Take 1 [facility] ers n 80 mg 7-12 tablet by [facility] tablet 00:00: mouth at [place] [address] bedtime. Medical Branch atorvastati 2-0 Yes 80mg Take 1 [facility] ers n 80 mg 7-12 tablet by [facility] tablet 00:00: mouth at [place] [address] bedtime. Medical Branch atorvastati 2-0 Yes 80mg Take 1 [facility] ers n 80 mg 7-12 tablet by [facility] tablet 00:00: mouth at [place] bedtime. Medical Branch atorvastati 2-0 Yes 80mg Take 1 [facility] ers n 80 mg 7-12 tablet by [facility] of tablet 00:00: mouth at [place] [address] bedtime. Medical Branch atorvastati 2-0 Yes 80mg Take 1 [facility] ers n 80 mg 7-12 tablet by [facility] of tablet 00:00: mouth at [place] [address] bedtime. Medical Branch atorvastati 2-0 Yes 80mg Take 1 [facility] n 80 mg 7-12 tablet by [facility] of tablet 00:00: mouth at [place] [address] bedtime. Medical Branch atorvastati 2-0 Yes 80mg Take 1 [facility] ers n 80 mg 7-12 tablet by [facility] of tablet 00:00: mouth at [place] [address] bedtime. Medical Branch atorvastati 2-0 Yes 80mg Take 1 [facility] ers n 80 mg 7-12 tablet by [facility] of tablet 00:00: mouth at [place] [address] bedtime. Medical Branch atorvastati 2022-0 Yes 80mg Take 1 [facility] ers n 80 mg 7-12 tablet by [facility] tablet 00:00: mouth at [place] [address] bedtime. Medical Branch atorvastati 2022-0 Yes 80mg Take 1 [facility] n 80 mg 7-12 tablet by [facility] tablet 00:00: mouth at [place] [address] bedtime. Medical Branch atorvastati 2022-0 Yes 80mg Take 1 [facility] ers n 80 mg 7-12 tablet by [facility] of tablet 00:00: mouth at [place] [address] bedtime. Medical Branch atorvastati 2022-0 Yes 80mg Take 1 [facility] ers n 80 mg 7-12 tablet by [facility] of tablet 00:00: mouth at [place] [address] bedtime. Medical Branch atorvastati 2022-0 Yes 80mg Take 1 [facility] ers n 80 mg 7-12 tablet by [facility] of tablet 00:00: mouth at [place] [address] bedtime. Medical Branch atorvastati 2-0 Yes 80mg Take 1 [facility] ers n 80 mg 7-12 tablet by [facility] of tablet 00:00: mouth at [place] [address] bedtime. Medical Branch atorvastati 2-0 Yes 80mg Take 1 [facility] ers n 80 mg 7-12 tablet by [facility] of tablet 00:00: mouth at [place] [address] bedtime. Medical Branch atorvastati 2-0 Yes 80mg Take 1 [facility] n 80 mg 7-12 tablet by [facility] of tablet 00:00: mouth at [place] [address] bedtime. Medical Branch atorvastati 2-0 Yes 80mg Take 1 [facility] n 80 mg 7-12 tablet by [facility] of tablet 00:00: mouth at [place] [address] bedtime. Medical Branch atorvastati 2-0 Yes 80mg Take 1 [facility] n 80 mg 7-12 tablet by [facility] of tablet 00:00: mouth at [place] [address] bedtime. Medical Branch atorvastati 2-0 Yes 80mg Take 1 [facility] n 80 mg 7-12 tablet by [facility] of tablet 00:00: mouth at [place] [address] bedtime. Medical Branch atorvastati 2-0 Yes 80mg Take 1 [facility] n 80 mg 7-12 tablet by [facility] of tablet 00:00: mouth at [place] [address] bedtime. Medical Branch atorvastati 2-0 Yes 80mg Take 1 [facility] ers n 80 mg 7-12 tablet by [facility] of tablet 00:00: mouth at [place] [address] bedtime. Medical Branch atorvastati 2-0 Yes 80mg Take 1 [facility] ers n 80 mg 7-12 tablet by [facility] of tablet 00:00: mouth at [place] [address] bedtime. Medical Branch atorvastati 2022-0 Yes 80mg Take 1 [facility] ers n 80 mg 7-12 tablet by [facility] of tablet 00:00: mouth at [place] [address] bedtime. Medical Branch atorvastati 2022-0 Yes 80mg Take 1 [facility] n 80 mg 7-12 tablet by [facility] of tablet 00:00: mouth at [place] [address] bedtime. Medical Branch atorvastati 2-0 Yes 80mg Take 1 [facility] n 80 mg 7-12 tablet by [facility] of tablet 00:00: mouth at [place] [address] bedtime. Medical Branch atorvastati 2022-0 Yes 80mg Take 1 [facility] n 80 mg 7-12 tablet by [facility] of tablet 00:00: mouth at [place] [address] bedtime. Medical Branch atorvastati 2-0 Yes 80mg Take 1 [facility] n 80 mg 7-12 tablet by [facility] of tablet 00:00: mouth at [place] [address] bedtime. Medical Branch atorvastati 2-0 Yes 80mg Take 1 [facility] n 80 mg 7-12 tablet by [facility] tablet 00:00: mouth at [place] bedtime. Medical Branch atorvastati 2-0 Yes 80mg Take 1 [facility] n 80 mg 7-12 tablet by [facility] of tablet 00:00: mouth at [place] [address] bedtime. Medical Branch atorvastati 2-0 Yes 80mg Take 1 [facility] n 80 mg 7-12 tablet by [facility] tablet 00:00: mouth at [place] [address] bedtime. Medical Branch atorvastati 2-0 Yes 80mg Take 1 [facility] n 80 mg 7-12 tablet by [facility] tablet 00:00: mouth at [place] [address] bedtime. Medical Branch atorvastati 2-0 Yes 80mg Take 1 [facility] n 80 mg 7-12 tablet by [facility] tablet 00:00: mouth at [place] [address] bedtime. Medical Branch atorvastati 2-0 Yes 80mg Take 1 [facility] 80 mg 7-12 tablet by [facility] tablet 00:00: mouth at [place] [address] bedtime. Medical Branch atorvastati 2022-0 Yes 80mg Take 1 [facility] n 80 mg 7-12 tablet by [facility] tablet 00:00: mouth at [place] [address] bedtime. Medical Branch atorvastati 2022-0 Yes 80mg Take 1 [facility] n 80 mg 7-12 tablet by [facility] tablet 00:00: mouth at [place] [address] bedtime. Medical Branch atorvastati 2022-0 Yes 80mg Take 1 [facility] n 80 mg 7-12 tablet by [facility] tablet 00:00: mouth at [place] [address] bedtime. Medical Branch atorvastati 2022-0 Yes 80mg Take 1 [facility] n 80 mg 7-12 tablet by [facility] tablet 00:00: mouth at [place] [address] bedtime. Medical Branch atorvastati 2022-0 Yes 80mg Take 1 [facility] n 80 mg 7-12 tablet by [facility] tablet 00:00: mouth at [place] [address] bedtime. Medical Branch atorvastati 2-0 Yes 80mg Take 1 [facility] n 80 mg 7-12 tablet by [facility] tablet 00:00: mouth at [place] [address] bedtime. Medical Branch atorvastati 2-0 Yes 80mg Take 1 [facility] n 80 mg 7-12 tablet by [facility] tablet 00:00: mouth at [place] [address] bedtime. Medical Branch atorvastati 2-0 Yes 80mg Take 1 [facility] 80 mg 7-12 tablet by [facility] tablet 00:00: mouth at [place] [address] bedtime. Medical Branch atorvastati 2-0 Yes 80mg Take 1 [facility] 80 mg 7-12 tablet by [facility] tablet 00:00: mouth at [place] [address] bedtime. Medical Branch atorvastati 2-0 Yes 80mg Take 1 [facility] 80 mg 7-12 tablet by [facility] tablet 00:00: mouth at [place] [address] bedtime. Medical Branch atorvastati 2-0 Yes 80mg Take 1 [facility] 80 mg 7-12 tablet by [facility] tablet 00:00: mouth at [place] [address] bedtime. Medical Branch atorvastati 2-0 Yes 80mg Take 1 [facility] 80 mg 7-12 tablet by [facility] tablet 00:00: mouth at [place] [address] bedtime. Medical Branch atorvastati 2-0 Yes 80mg Take 1 [facility] 80 mg 7-12 tablet by [facility] tablet 00:00: mouth at [place] [address] bedtime. Medical Branch atorvastati 2-0 Yes 80mg Take 1 [facility] n 80 mg 7-12 tablet by [facility] tablet 00:00: mouth at [place] [address] bedtime. Medical Branch atorvastati 2022-0 Yes 80mg Take 1 [facility] 80 mg 7-12 tablet by [facility] tablet 00:00: mouth at [place] [address] bedtime. Medical Branch atorvastati 2022-0 Yes 80mg Take 1 [facility] 80 mg 7-12 tablet by [facility] tablet 00:00: mouth at [place] [address] bedtime. Medical Branch atorvastati 2-0 Yes 80mg Take 1 [facility] 80 mg 7-12 tablet by [facility] tablet 00:00: mouth at [place] [address] bedtime. Medical Branch atorvastati 2022-0 Yes 80mg Take 1 [facility] 80 mg 7-12 tablet by [facility] tablet 00:00: mouth at [place] [address] bedtime. Medical Branch atorvastati 2-0 Yes 80mg Take 1 [facility] 80 mg 7-12 tablet by [facility] tablet 00:00: mouth at [place] [address] bedtime. Medical Branch atorvastati 2-0 Yes 80mg Take 1 [facility] 80 mg 7-12 tablet by [facility] tablet 00:00: mouth at [place] bedtime. Medical Branch atorvastati 2-0 Yes 80mg Take 1 [facility] n 80 mg 7-12 tablet by [facility] tablet 00:00: mouth at [place] [address] bedtime. Medical Branch atorvastati 2-0 Yes 80mg Take 1 [facility] 80 mg 7-12 tablet by [facility] tablet 00:00: mouth at [place] [address] bedtime. [facility] Branch atorvastati 2-0 Yes 80mg Take 1 [facility] 80 mg 7-12 tablet by [facility] tablet 00:00: mouth at [place] [address] bedtime. Medical Branch atorvastati 2-0 Yes 80mg Take 1 [facility] 80 mg 7-12 tablet by [facility] tablet 00:00: mouth at [place] [address] bedtime. Medical Branch atorvastati 2-0 Yes 80mg Take 1 [facility] 80 mg 7-12 tablet by [facility] tablet 00:00: mouth at [place] [address] bedtime. Medical Branch atorvastati 2022-0 Yes 80mg Take 1 [facility] 80 mg 7-12 tablet by [facility] tablet 00:00: mouth at [place] [address] bedtime. Medical Branch atorvastati 2022-0 Yes 80mg Take 1 [facility] n 80 mg 7-12 tablet by [facility] tablet 00:00: mouth at [place] [address] bedtime. Medical Branch atorvastati 2022-0 Yes 80mg Take 1 [facility] 80 mg 7-12 tablet by [facility] tablet 00:00: mouth at [place] [address] bedtime. Medical Branch atorvastati 2022-0 Yes 80mg Take 1 [facility] 80 mg 7-12 tablet by [facility] tablet 00:00: mouth at [place] [address] bedtime. Medical Branch atorvastati 2022-0 Yes 80mg Take 1 [facility] 80 mg 7-12 tablet by [facility] tablet 00:00: mouth at [place] [address] bedtime. Medical Branch atorvastati 2-0 Yes 80mg Take 1 [facility] 80 mg 7-12 tablet by [facility] tablet 00:00: mouth at [place] [address] bedtime. [facility] Branch atorvastati 2-0 Yes 80mg Take 1 [facility] 80 mg 7-12 tablet by [facility] tablet 00:00: mouth at [place] [address] bedtime. [facility] Branch atorvastati 2-0 Yes 80mg Take 1 [facility] 80 mg 7-12 tablet by [facility] of tablet 00:00: mouth at [place] [address] bedtime. [facility] Branch atorvastati 2-0 Yes 80mg Take 1 [facility] 80 mg 7-12 tablet by [facility] tablet 00:00: mouth at [place] [address] bedtime. [facility] Branch atorvastati 2-0 Yes 80mg Take 1 [facility] 80 mg 7-12 tablet by [facility] tablet 00:00: mouth at [place] [address] bedtime. [facility] Branch atorvastati 2-0 Yes 80mg Take 1 [facility] n 80 mg 7-12 tablet by [facility] tablet 00:00: mouth at [place] [address] bedtime. [facility] Branch atorvastati 2-0 Yes 80mg Take 1 [facility] n 80 mg 7-12 tablet by [facility] tablet 00:00: mouth at [place] [address] bedtime. [facility] Branch atorvastati 2-0 Yes 80mg Take 1 [facility] 80 mg 7-12 tablet by [facility] of tablet 00:00: mouth at [place] [address] bedtime. [facility] Branch atorvastati 2-0 Yes 80mg Take 1 [facility] n 80 mg 7-12 tablet by [facility] tablet 00:00: mouth at [place] [address] bedtime. [facility] Branch atorvastati 2022-0 Yes 80mg Take 1 [facility] n 80 mg 7-12 tablet by [facility] tablet 00:00: mouth at [place] [address] bedtime. [facility] Branch atorvastati 2022-0 Yes 80mg Take 1 [facility] n 80 mg 7-12 tablet by [facility] of tablet 00:00: mouth at [place] [address] bedtime. [facility] Branch atorvastati 2-0 Yes 80mg Take 1 [facility] 80 mg 7-12 tablet by [facility] tablet 00:00: mouth at [place] [address] bedtime. [facility] Branch atorvastati 2021-0 Yes 80mg Take 1 [facility] n 80 mg 7-12 tablet by [facility] tablet 00:00: mouth at [place] [address] bedtime. [facility] Branch atorvastati 2021-0 Yes 80mg Take 1 [facility] n 80 mg 7-12 tablet by [facility] of tablet 00:00: mouth at [place] [address] bedtime. [facility] Branch atorvastati 2021-0 Yes 80mg Take 1 [facility] 80 mg 7-12 tablet by [facility] tablet 00:00: mouth at [place] [address] bedtime. [facility] Branch atorvastati 2021-0 Yes 80mg Take 1 [facility] 80 mg 7-12 tablet by [facility] tablet 00:00: mouth at [place] [address] bedtime. [facility] Branch atorvastati 2021-0 2023- No 80mg Take 1 [facility] 80 mg 7-12 07-12 tablet by [facility] tablet 00:00: 00:00 mouth at [place] 00 :00 bedtime. [facility] Branch atorvastati 2021-0 3- No 80mg Take 1 [facility] 80 mg 7-12 07-12 tablet by [facility] tablet 00:00: 00:00 mouth at [place] 00 :00 bedtime. [facility] Branch ezetimibe 2021-0 [...] [facility] mg tablet 00:00: mouth 00 daily. [facility] Branch ezetimibe 2022-0 Yes 10mg Take 1 [facility] (ZETIA) 10 5-20 tablet by [facility] mg tablet 00:00: mouth 00 daily. [facility] Branch ezetimibe 2022-0 Yes 10mg Take 1 [facility] (ZETIA) 10 5-20 tablet by [facility] mg tablet 00:00: mouth [place] 00 daily. [facility] Branch ezetimibe 0 2021- No 10mg Take 1 [facility] (ZETIA) 10 5-20 09-02 tablet by [facility] mg tablet 00:00: 00:00 mouth [place] 00 :00 daily. [facility] Branch furosemide 2021-0 Yes [id number] 40mg Take 2 [facility] 20 mg 2-16 02 tablets by [facility] tablet 00:00: mouth [place] 00 daily. [facility] Branch furosemide 0 Yes [id number] 40mg Take 2 [facility] 20 mg 2-16 02 tablets by [facility] tablet 00:00: mouth [place] 00 daily. [facility] Branch furosemide 2021-0 Yes [id number] 40mg Take 2 [facility] 20 mg 2-16 02 tablets by [facility] tablet 00:00: mouth [place] 00 daily. [facility] Branch furosemide 0 Yes [id number] 40mg Take 2 [facility] 20 mg 2-16 02 tablets by [facility] tablet 00:00: mouth [place] 00 daily. [facility] Branch furosemide 0 Yes [id number] 40mg Take 2 [facility] 20 mg 2-16 02 tablets by [facility] tablet 00:00: mouth [place] 00 daily. [facility] Branch furosemide 2021-0 Yes [id number] 40mg Take 2 [facility] 20 mg 2-16 02 tablets by [facility] tablet 00:00: mouth [place] 00 daily. Medical [facility] furosemide 2021-0 Yes [id number] 40mg Take 2 [facility]-16 02 tablets by [facility] tablet 00:00: mouth [place] 00 daily. [facility] furosemide 2021-0 Yes [id number] 40mg Take 2 [facility] 20 mg 2-16 02 tablets by [facility] tablet 00:00: mouth [place] 00 daily. [facility] furosemide 2021-0 Yes [id number] 40mg Take 2 [facility] 20 mg 2-16 02 tablets by [facility] tablet 00:00: mouth [place] 00 daily. [facility] furosemide 2021-0 Yes [id number] 40mg Take 2 [facility] 20 mg 2-16 02 tablets by [facility] tablet 00:00: mouth [place] 00 daily. [facility] furosemide 2021-0 Yes [id number] 40mg Take 2 [facility] 20 mg 2-16 02 tablets by [facility] tablet 00:00: mouth [place] 00 daily. [facility] furosemide 2021-0 Yes [id number] 40mg Take 2 [facility] 20 mg 2-16 02 tablets by [facility] tablet 00:00: mouth [place] 00 daily. [facility] furosemide 2021-0 Yes [id number] 40mg Take 2 [facility] 20 mg 2-16 02 tablets by [facility] tablet 00:00: mouth [place] 00 daily. [facility] furosemide 2021-0 Yes [id number] 40mg Take 2 [facility] 20 mg 2-16 02 tablets by [facility] tablet 00:00: mouth [place] 00 daily. [facility] furosemide 2021-0 Yes [id number] 40mg Take 2 [facility] 20 mg 2-16 02 tablets by [facility] tablet 00:00: mouth [place] 00 daily. [facility] furosemide 2021-0 Yes [id number] 40mg Take 2 [facility] 20 mg 2-16 02 tablets by [facility] tablet 00:00: mouth [place] 00 daily. [facility] furosemide 2021-0 Yes [id number] 40mg Take 2 [facility] 20 mg 2-16 02 tablets by [facility] tablet 00:00: mouth [place] 00 daily. [facility] furosemide 2021-0 Yes [id number] 40mg Take 2 [facility] 20 mg 2-16 02 tablets by [facility] tablet 00:00: mouth [place] 00 daily. [facility] furosemide 2021-0 Yes [id number] 40mg Take 2 [facility] 20 mg 2-16 02 tablets by [facility] tablet 00:00: mouth [place] 00 daily. [facility] furosemide 2021-0 Yes [id number] 40mg Take 2 [facility] 20 mg 2-16 02 tablets by [facility] tablet 00:00: mouth [place] 00 daily. [facility] furosemide 2021-0 Yes [id number] 40mg Take 2 [facility] 20 mg 2-16 02 tablets by [facility] tablet 00:00: mouth [place] 00 daily. [facility] furosemide 2021-0 Yes [id number] 40mg Take 2 [facility] 20 mg 2-16 02 tablets by [facility] tablet 00:00: mouth [place] 00 daily. [facility] furosemide 2021-0 Yes [id number] 40mg Take 2 [facility] 20 mg 2-16 02 tablets by [facility] tablet 00:00: mouth [place] 00 daily. [facility] furosemide 2021-0 Yes [id number] 40mg Take 2 [facility] 20 mg 2-16 02 tablets by [facility] tablet 00:00: mouth [place] 00 daily. [facility] furosemide 2021-0 Yes [id number] 40mg Take 2 [facility] 20 mg 2-16 02 tablets by [facility] tablet 00:00: mouth [place] 00 daily. [facility] furosemide 2021-0 Yes [id number] 40mg Take 2 [facility] 20 mg 2-16 02 tablets by [facility] tablet 00:00: mouth [place] 00 daily. [facility] furosemide 2021-0 Yes [id number] 40mg Take 2 [facility] 20 mg 2-16 02 tablets by [facility] tablet 00:00: mouth [place] 00 daily. [facility] furosemide 2021-0 Yes [id number] 40mg Take 2 [facility] 20 mg 2-16 02 tablets by [facility] tablet 00:00: mouth [place] 00 daily. [facility] furosemide 2021-0 Yes [id number] 40mg Take 2 [facility] 20 mg 2-16 02 tablets by [facility] tablet 00:00: mouth [place] 00 daily. [facility] furosemide 2021-0 Yes [id number] 40mg Take 2 [facility] 20 mg 2-16 02 tablets by [facility] tablet 00:00: mouth [place] 00 daily. [facility] furosemide 2021-0 Yes [id number] 40mg Take 2 [facility] 20 mg 2-16 02 tablets by [facility] tablet 00:00: mouth [place] 00 daily. [facility] furosemide 2021-0 Yes [id number] 40mg Take 2 [facility] 20 mg 2-16 02 tablets by [facility] tablet 00:00: mouth [place] 00 daily. [facility] furosemide 2021-0 Yes [id number] 40mg Take 2 [facility] 20 mg 2-16 02 tablets by [facility] tablet 00:00: mouth [place] 00 daily. [facility] furosemide 2021-0 Yes [id number] 40mg Take 2 [facility] 20 mg 2-16 02 tablets by [facility] tablet 00:00: mouth [place] 00 daily. [facility] furosemide 2021-0 Yes [id number] 40mg Take 2 [facility] 20 mg 2-16 02 tablets by [facility] tablet 00:00: mouth [place] 00 daily. [facility] furosemide 2021-0 Yes [id number] 40mg Take 2 [facility] 20 mg 2-16 02 tablets by [facility] tablet 00:00: mouth [place] 00 daily. [facility] furosemide 2021-0 Yes [id number] 40mg Take 2 [facility] 20 mg 2-16 02 tablets by [facility] tablet 00:00: mouth [place] 00 daily. [facility] furosemide Yes [id number] 40mg Take 2 [facility] 20 mg 2-16 02 tablets by [facility] tablet 00:00: mouth [place] 00 daily. [facility] furosemide Yes [id number] 40mg Take 2 [facility] 20 mg 2-16 02 tablets by [facility] tablet 00:00: mouth [place] 00 daily. [facility] furosemide Yes [id number] 40mg Take 2 [facility] 20 mg 2-16 02 tablets by [facility] tablet 00:00: mouth [place] 00 daily. [facility] furosemide Yes [id number] 40mg Take 2 [facility] 20 mg 2-16 02 tablets by [facility] tablet 00:00: mouth [place] 00 daily. [facility] furosemide Yes [id number] 40mg Take 2 [facility] 20 mg 2-16 02 tablets by [facility] tablet 00:00: mouth [place] 00 daily. [facility] furosemide 2022- No [id number] 40mg Take 2 [facility] 20 mg 2-16 02-27 02 tablets by [facility] tablet 00:00: 00:00 mouth [place] 00 :00 daily. [facility] furosemide 2022- No [id number] 40mg Take 2 [facility] 20 mg 2-16 02-27 02 tablets by [facility] tablet 00:00: 00:00 mouth [place] 00 :00 daily. [facility] furosemide 2022- No [id number] 40mg Take 2 [facility] 20 mg 2-16 02-27 02 tablets by [facility] tablet 00:00: 00:00 mouth [place] 00 :00 daily. [facility] furosemide 2022- No [id number] 40mg Take 2 [facility] 20 mg 2-16 02-27 02 tablets by [facility] tablet 00:00: 00:00 mouth [place] 00 :00 daily. [facility] furosemide 2022- No [id number] 40mg Take 2 [facility] 20 mg 2-16 02-27 02 tablets by [facility] tablet 00:00: 00:00 mouth [place] 00 :00 daily. [facility] metoprolol 2020-04 Yes [id number] 25mg Take 1 [facility] tartrate 25 2-15 tablet by [facility] mg tablet 00:00: mouth (two) Medical times [facility] daily. metoprolol 2020-04 Yes [id number] 25mg Take 1 [facility] tartrate 25 2-15 tablet by [facility] mg tablet 00:00: mouth (two) Medical times [facility] daily. metoprolol 2020-04 Yes [id number] 25mg Take 1 [facility] tartrate 25 2-15 tablet by [facility] mg tablet 00:00: mouth (two) Medical times [facility] daily. metoprolol 2020-04 Yes [id number] 25mg Take 1 [facility] tartrate 25 2-15 tablet by [facility] mg tablet 00:00: mouth (two) Medical times [facility] daily. metoprolol 2020-04 Yes [id number] 25mg Take 1 [facility] tartrate 25 2-15 tablet by [facility] mg tablet 00:00: mouth (two) Medical times [facility] daily. metoprolol 2020-04 Yes [id number] 25mg Take 1 [facility] tartrate 25 2-15 tablet by [facility] mg tablet 00:00: mouth (two) Medical times [facility] daily. metoprolol 2020-04 Yes [id number] 25mg Take 1 [facility] tartrate 25 2-15 tablet by [facility] mg tablet 00:00: mouth (two) Medical times [facility] daily. metoprolol 2020-04 Yes [id number] 25mg Take 1 [facility] tartrate 25 2-15 tablet by [facility] mg tablet 00:00: mouth (two) Medical times [facility] daily. metoprolol 2020-04 Yes [id number] 25mg Take 1 [facility] tartrate 25 2-15 tablet by [facility] mg tablet 00:00: mouth (two) Medical times [facility] daily. metoprolol 2020-04 Yes [id number] 25mg Take 1 [facility] tartrate 25 2-15 tablet by [facility] mg tablet 00:00: mouth (two) Medical times [facility] daily. metoprolol 2020-04 Yes [id number] 25mg Take 1 [facility] tartrate 25 2-15 tablet by [facility] mg tablet 00:00: mouth (two) Medical times [facility] daily. metoprolol 2021-1 Yes [id number] 25mg Take 1 [facility] tartrate 25 2-15 tablet by [facility] mg tablet 00:00: mouth (two) Medical times [facility] daily. metoprolol 2020-04 Yes [id number] 25mg Take 1 [facility] tartrate 25 2-15 tablet by [facility] mg tablet 00:00: mouth (two) Medical times [facility] daily. metoprolol 2020-04 Yes [id number] 25mg Take 1 [facility] tartrate 25 2-15 tablet by [facility] mg tablet 00:00: mouth (two) Medical times [facility] daily. metoprolol 2020-04 Yes [id number] 25mg Take 1 [facility] tartrate 25 2-15 tablet by [facility] mg tablet 00:00: mouth (two) Medical times [facility] daily. metoprolol 2020-04 Yes [id number] 25mg Take 1 [facility] tartrate 25 2-15 tablet by [facility] mg tablet 00:00: mouth (two) Medical times [facility] daily. metoprolol 2020-04 Yes [id number] 25mg Take 1 [facility] tartrate 25 2-15 tablet by [facility] mg tablet 00:00: mouth (two) Medical times [facility] daily. metoprolol 2020-04 Yes [id number] 25mg Take 1 [facility] tartrate 25 2-15 tablet by [facility] mg tablet 00:00: mouth (two) Medical times [facility] daily. metoprolol 2020-04 Yes [id number] 25mg Take 1 [facility] tartrate 25 2-15 tablet by [facility] mg tablet 00:00: mouth (two) Medical times [facility] daily. metoprolol 2020-04 Yes [id number] 25mg Take 1 [facility] tartrate 25 2-15 tablet by [facility] mg tablet 00:00: mouth (two) Medical times [facility] daily. metoprolol 2020-04 Yes [id number] 25mg Take 1 [facility] tartrate 25 2-15 tablet by [facility] mg tablet 00:00: mouth (two) Medical times [facility] daily. metoprolol 2020-04 Yes [id number] 25mg Take 1 [facility] tartrate 25 2-15 tablet by [facility] mg tablet 00:00: mouth (two) Medical times [facility] daily. metoprolol 2020-04 Yes [id number] 25mg Take 1 [facility] tartrate 25 2-15 tablet by [facility] mg tablet 00:00: mouth (two) Medical times [facility] daily. metoprolol 2020-04 Yes [id number] 25mg Take 1 [facility] tartrate 25 2-15 tablet by [facility] mg tablet 00:00: mouth 2 (two) Medical times [facility] daily. metoprolol 2020-04 Yes [id number] 25mg Take 1 [facility] tartrate 25 2-15 tablet by [facility] mg tablet 00:00: mouth (two) Medical times [facility] daily. metoprolol 2020-04 Yes [id number] 25mg Take 1 [facility] tartrate 25 2-15 tablet by [facility] mg tablet 00:00: mouth [place] (two) Medical times [facility] daily. metoprolol 2020-04 Yes [id number] 25mg Take 1 [facility] tartrate 25 2-15 tablet by [facility] mg tablet 00:00: mouth [place] (two) Medical times [facility] daily. metoprolol 2020-04 Yes [id number] 25mg Take 1 [facility] tartrate 25 2-15 tablet by [facility] mg tablet 00:00: mouth [place] (two) Medical times [facility] daily. metoprolol 2020-04 Yes [id number] 25mg Take 1 [facility] tartrate 25 2-15 tablet by [facility] mg tablet 00:00: mouth [place] (two) Medical times [facility] daily. metoprolol 2020-04- No [id number] 25mg Take 1 [facility] tartrate 25 2-15 12-19 tablet by [facility] mg tablet 00:00: 00:00 mouth [place] :[place] (two) [facility] times [facility] daily. polyethylen 2020-04 Yes [id number] 17g Take 1 [facility] e glycol 0-29 Packet by [facility] of 3350 17 00:00: mouth [place] gram powder 00 daily. Medica l [facility] polyethylen 2020-04 Yes [id number] 17g Take 1 [facility] e glycol 0-29 Packet by [facility] of 3350 17 00:00: mouth [place] gram powder 00 daily. Medica l [facility] polyethylen 2020-04 Yes [id number] 17g Take 1 [facility] e glycol 0-29 Packet by [facility] of 3350 17 00:00: mouth [place] gram powder 00 daily. [facility]ica l [facility] polyethylen 2020-04 Yes [id number] 17g Take 1 [facility] e glycol 0-29 Packet by [facility] of 3350 17 00:00: mouth [place] gram powder 00 daily. [facility]ica l [facility] polyethylen 2020-04 Yes [id number] 17g Take 1 [facility] e glycol 0-29 Packet by [facility] of 3350 17 00:00: mouth [place] gram powder 00 daily. Medica l [facility] polyethylen 2020-04 Yes [id number] 17g Take 1 [facility] e glycol 0-29 Packet by [facility] of 3350 17 00:00: mouth [place] gram powder 00 daily. [facility]ica l [facility] polyethylen 2020-04 Yes [id number] 17g Take 1 [facility] e glycol 0-29 Packet by [facility] of 3350 17 00:00: mouth [place] gram powder 00 daily. Medica l [facility] polyethylen 2020-04 Yes [id number] 17g Take 1 [facility] e glycol 0-29 Packet by [facility] of 3350 17 00:00: mouth [place] gram powder 00 daily. [facility]ica [facility] polyethylen 2020-04 Yes [id number] 17g Take 1 [facility] e glycol 0-29 Packet by [facility] of 3350 17 00:00: mouth [place] gram powder 00 daily. Medica l [facility] polyethylen 2020-04 Yes [id number] 17g Take 1 [facility] e glycol 0-29 Packet by [facility] of 3350 17 00:00: mouth [place] gram powder 00 daily. [facility]ica [facility] polyethylen 2020-04 Yes [id number] 17g Take 1 [facility] e glycol 0-29 Packet by [facility] of 3350 17 00:00: mouth [place] gram powder 00 daily. [facility]ica [facility] polyethylen 2020-04 Yes [id number] 17g Take 1 [facility] e glycol 0-29 Packet by [facility] of 3350 17 00:00: mouth [place] gram powder 00 daily. [facility]ica [facility] polyethylen 2020-04 Yes [id number] 17g Take 1 [facility] e glycol 0-29 Packet by [facility] of 3350 17 00:00: mouth [place] gram powder 00 daily. [facility]ica [facility] polyethylen 2020-04 Yes [id number] 17g Take 1 [facility] e glycol 0-29 Packet by [facility] of 3350 17 00:00: mouth [place] gram powder 00 daily. [facility]ica [facility] polyethylen 2020-04 Yes [id number] 17g Take 1 [facility] e glycol 0-29 Packet by [facility] of 3350 17 00:00: mouth [place] gram powder 00 daily. [facility]ica [facility] polyethylen 2020-04 Yes [id number] 17g Take 1 [facility] e glycol 0-29 Packet by [facility] of 3350 17 00:00: mouth [place] gram powder 00 daily. [facility]ica [facility] polyethylen 2020-04 Yes [id number] 17g Take 1 [facility] e glycol 0-29 Packet by [facility] of 3350 17 00:00: mouth [place] gram powder 00 daily. [facility]ica [facility] polyethylen 2020-04 Yes [id number] 17g Take 1 [facility] e glycol 0-29 Packet by [facility] of 3350 17 00:00: mouth [place] gram powder 00 daily. [facility]ica [facility] polyethylen 2020-04 Yes [id number] 17g Take 1 [facility] e glycol 0-29 Packet by [facility] of 3350 17 00:00: mouth [place] gram powder 00 daily. [facility]ica [facility] polyethylen 2020-04 Yes [id number] 17g Take 1 [facility] e glycol 0-29 Packet by [facility] of 3350 17 00:00: mouth [place] gram powder 00 daily. [facility] polyethylen 2020-04 Yes [id number] 17g Take 1 [facility] e glycol 0-29 Packet by [facility] of 3350 17 00:00: mouth [place] gram powder 00 daily. [facility] polyethylen 2020-04 Yes [id number] 17g Take 1 [facility] e glycol 0-29 Packet by [facility] of 3350 17 00:00: mouth [place] gram powder 00 daily. [facility] polyethylen 2020-04 Yes [id number] 17g Take 1 [facility] e glycol 0-29 Packet by [facility] of 3350 17 00:00: mouth [place] gram powder 00 daily. [facility] polyethylen 2020-04 Yes [id number] 17g Take 1 [facility] e glycol 0-29 Packet by [facility] of 3350 17 00:00: mouth [place] gram powder 00 daily. [facility] polyethylen 2020-04 Yes [id number] 17g Take 1 [facility] e glycol 0-29 Packet by [facility] of 3350 17 00:00: mouth [place] gram powder 00 daily. [facility] polyethylen 2020-04 Yes [id number] 17g Take 1 [facility] e glycol 0-29 Packet by [facility] of 3350 17 00:00: mouth [place] gram powder 00 daily. [facility] polyethylen 2020-04 Yes [id number] 17g Take 1 [facility] e glycol 0-29 Packet by [facility] of 3350 17 00:00: mouth [place] gram powder 00 daily. [facility] polyethylen 2020-04 Yes [id number] 17g Take 1 [facility] e glycol 0-29 Packet by [facility] of 3350 17 00:00: mouth [place] gram powder 00 daily. [facility] polyethylen 2020-04 Yes [id number] 17g Take 1 [facility] e glycol 0-29 Packet by [facility] of 3350 17 00:00: mouth [place] gram powder 00 daily. [facility] polyethylen 2020-04 Yes [id number] 17g Take 1 [facility] e glycol 0-29 Packet by [facility] of 3350 17 00:00: mouth [place] gram powder 00 daily. [facility] polyethylen 2020-04 Yes [id number] 17g Take 1 [facility] e glycol 0-29 Packet by [facility] of 3350 17 00:00: mouth [place] gram powder 00 daily. [facility] polyethylen 2020-04 Yes [id number] 17g Take 1 [facility] e glycol 0-29 Packet by [facility] of 3350 17 00:00: mouth [place] gram powder 00 daily. [facility] polyethylen 2020-04 Yes [id number] 17g Take 1 [facility] e glycol 0-29 Packet by [facility] of 3350 17 00:00: mouth [place] gram powder 00 daily. [facility] polyethylen 2020-04 Yes [id number] 17g Take 1 [facility] e glycol 0-29 Packet by [facility] of 3350 17 00:00: mouth [place] gram powder 00 daily. [facility] polyethylen 2020-04 Yes [id number] 17g Take 1 [facility] e glycol 0-29 Packet by [facility] of 3350 17 00:00: mouth [place] gram powder 00 daily. [facility] polyethylen 2020-04 Yes [id number] 17g Take 1 [facility] e glycol 0-29 Packet by [facility] of 3350 17 00:00: mouth [place] gram powder 00 daily. [facility] polyethylen 2020-04 Yes [id number] 17g Take 1 [facility] e glycol 0-29 Packet by [facility] of 3350 17 00:00: mouth [place] gram powder 00 daily. [facility] polyethylen 2020-04 Yes [id number] 17g Take 1 [facility] e glycol 0-29 Packet by [facility]y of 3350 17 00:00: mouth [place] gram powder 00 daily. [facility] polyethylen 2020-04 Yes [id number] 17g Take 1 [facility] e glycol 0-29 Packet by [facility] of 3350 17 00:00: mouth [place] gram powder 00 daily. [facility] polyethylen 2020-04 Yes [id number] 17g Take 1 [facility] e glycol 0-29 Packet by [facility] of 3350 17 00:00: mouth [place] gram powder 00 daily. [facility] polyethylen 2020-04 Yes [id number] 17g Take 1 [facility] glycol 0-29 Packet by [facility] of 3350 17 00:00: mouth [place] gram powder 00 daily. [facility] polyethylen 2020-04- No [id number] 17g Take 1 [facility] e glycol 0-29 02-22 Packet by ity o f 3350 17 00:00: 00:00 mouth [place] gram powder 00 :00 daily. [facility]ica [facility] polyethylen 2020-04- No [id number] 17g Take 1 [facility] e glycol 0-29 02-22 Packet by ity o f 3350 17 00:00: 00:00 mouth [place] gram powder 00 :00 daily. [facility]ica l [facility] polyethylen 2020-04- No [id number] 17g Take 1 [facility] e glycol 0-29 02-22 Packet by ity o f 3350 17 00:00: 00:00 mouth [place] gram powder 00 :00 daily. [facility] docusate 2020-04 Yes [id number] 100mg Take 1 [facility] 100 mg 0-28 capsule by [facility] of capsule 00:00: mouth 2 (two) Medical times [facility] daily. docusate 2020-04 Yes [id number] 100mg Take 1 [facility] 100 mg 0-28 capsule by [facility] of capsule 00:00: mouth 2 (two) Medical times [facility] daily. docusate 2020-04 Yes [id number] 100mg Take 1 [facility] 100 mg 0-28 capsule by [facility] of capsule 00:00: mouth (two) Medical times [facility] daily. docusate 2020-04 Yes [id number] 100mg Take 1 [facility] 100 mg 0-28 capsule by [facility] of capsule 00:00: mouth (two) Medical times [facility] daily. docusate 2020-04 Yes [id number] 100mg Take 1 [facility] 100 mg 0-28 capsule by [facility] of capsule 00:00: mouth (two) Medical times [facility] daily. docusate 2020-04 Yes [id number] 100mg Take 1 [facility] 100 mg 0-28 capsule by [facility] of capsule 00:00: mouth (two) Medical times [facility] daily. docusate 2020-04 Yes [id number] 100mg Take 1 [facility] 100 mg 0-28 capsule by [facility] of capsule 00:00: mouth (two) Medical times [facility] daily. docusate 2020-04 Yes [id number] 100mg Take 1 [facility] 100 mg 0-28 capsule by [facility] of capsule 00:00: mouth (two) Medical times [facility] daily. docusate 2020-04 Yes [id number] 100mg Take 1 [facility] 100 mg 0-28 capsule by [facility] of capsule 00:00: mouth (two) Medical times [facility] daily. docusate 2020-04 Yes [id number] 100mg Take 1 [facility] 100 mg 0-28 capsule by [facility] of capsule 00:00: mouth (two) Medical times [facility] daily. docusate 2020-04 Yes [id number] 100mg Take 1 [facility] 100 mg 0-28 capsule by [facility] of capsule 00:00: mouth (two) Medical times [facility] daily. docusate 2020-04 Yes [id number] 100mg Take 1 [facility] 100 mg 0-28 capsule by [facility] of capsule 00:00: mouth (two) Medical times [facility] daily. docusate 2020-04 Yes [id number] 100mg Take 1 [facility] 100 mg 0-28 capsule by [facility] of capsule 00:00: mouth (two) Medical times [facility] daily. docusate 2020-04 Yes [id number] 100mg Take 1 [facility] 100 mg 0-28 capsule by [facility] of capsule 00:00: mouth (two) Medical times [facility] daily. docusate 2020-04 Yes [id number] 100mg Take 1 [facility] 100 mg 0-28 capsule by [facility] of capsule 00:00: mouth (two) Medical times [facility] daily. docusate 2020-04 Yes [id number] 100mg Take 1 [facility] 100 mg 0-28 capsule by [facility] of capsule 00:00: mouth (two) Medical times [facility] daily. docusate 2020-04 Yes [id number] 100mg Take 1 [facility] 100 mg 0-28 capsule by [facility] of capsule 00:00: mouth (two) Medical times [facility] daily. docusate 2020-04 Yes [id number] 100mg Take 1 [facility] 100 mg 0-28 capsule by [facility] of capsule 00:00: mouth (two) Medical times [facility] daily. docusate 2020-04 Yes [id number] 100mg Take 1 [facility] 100 mg 0-28 capsule by [facility] of capsule 00:00: mouth (two) Medical times [facility] daily. docusate 2020-04 Yes [id number] 100mg Take 1 [facility] 100 mg 0-28 capsule by [facility] of capsule 00:00: mouth (two) Medical times [facility] daily. docusate 2020-04 Yes [id number] 100mg Take 1 [facility] 100 mg 0-28 capsule by [facility] of capsule 00:00: mouth (two) Medical times [facility] daily. docusate 2020-04 Yes [id number] 100mg Take 1 [facility] 100 mg 0-28 capsule by [facility] of capsule 00:00: mouth (two) Medical times [facility] daily. docusate 2020-04 Yes [id number] 100mg Take 1 [facility] 100 mg 0-28 capsule by [facility] of capsule 00:00: mouth (two) Medical times [facility] daily. docusate 2020-04 Yes [id number] 100mg Take 1 [facility] 100 mg 0-28 capsule by [facility] of capsule 00:00: mouth 2 (two) Medical times [facility] daily. docusate 2020-04 Yes [id number] 100mg Take 1 [facility] 100 mg 0-28 capsule by [facility] of capsule 00:00: mouth (two) Medical times [facility] daily. docusate 2020-04 Yes [id number] 100mg Take 1 [facility] 100 mg 0-28 capsule by [facility] of capsule 00:00: mouth (two) Medical times [facility] daily. docusate 2020-04 Yes [id number] 100mg Take 1 [facility] 100 mg 0-28 capsule by [facility] of capsule 00:00: mouth (two) Medical times [facility] daily. docusate 2020-04 Yes [id number] 100mg Take 1 [facility] 100 mg 0-28 capsule by [facility] of capsule 00:00: mouth (two) Medical times [facility] daily. docusate 2020-04 Yes [id number] 100mg Take 1 [facility] 100 mg 0-28 capsule by [facility] of capsule 00:00: mouth (two) Medical times [facility] daily. docusate 2020-04 Yes [id number] 100mg Take 1 [facility] 100 mg 0-28 capsule by [facility] of capsule 00:00: mouth (two) Medical times [facility] daily. docusate 2020-04 Yes [id number] 100mg Take 1 [facility] 100 mg 0-28 capsule by [facility] of capsule 00:00: mouth (two) Medical times [facility] daily. docusate 2020-04 Yes [id number] 100mg Take 1 [facility] 100 mg 0-28 capsule by [facility] of capsule 00:00: mouth (two) Medical times [facility] daily. docusate 2020-04 Yes [id number] 100mg Take 1 [facility] 100 mg 0-28 capsule by [facility] of capsule 00:00: mouth (two) Medical times [facility] daily. docusate 2020-04 Yes [id number] 100mg Take 1 [facility] 100 mg 0-28 capsule by [facility] of capsule 00:00: mouth (two) Medical times [facility] daily. docusate 2020-04 Yes [id number] 100mg Take 1 [facility] 100 mg 0-28 capsule by [facility] of capsule 00:00: mouth 2 [place] (two) Medical times [facility] daily. docusate 2020-04 Yes [id number] 100mg Take 1 [facility] 100 mg 0-28 capsule by [facility] of capsule 00:00: mouth 2 [place] (two) Medical times [facility] daily. docusate 2020-04 Yes [id number] 100mg Take 1 [facility] 100 mg 0-28 capsule by [facility] of capsule 00:00: mouth 2 [place] (two) Medical times Branch daily. docusate 2020-04 Yes [id number] 100mg Take 1 [facility] 100 mg 0-28 capsule by [facility] of capsule 00:00: mouth 2 [place] (two) Medical times [facility] daily. docusate 2020-04 Yes [id number] 100mg Take 1 [facility] 100 mg 0-28 capsule by [facility] of capsule 00:00: mouth 2 [place] (two) Medical times [facility] daily. docusate 2020-04 Yes [id number] 100mg Take 1 [facility] 100 mg 0-28 capsule by [facility] of capsule 00:00: mouth [place] (two) Medical times [facility] daily. docusate 2020-04 Yes [id number] 100mg Take 1 [facility] 100 mg 0-28 capsule by [facility] of capsule 00:00: mouth [place] (two) Medical times [facility] daily. docusate 2020-04- No [id number] 100mg Take 1 [facility] 100 mg 0-28 02-22 capsule by [facility] of capsule 00:00: 00:00 mouth 2 [place] 00 :00 (two) Medical times [facility] daily. docusate 2020-04- No [id number] 100mg Take 1 [facility] 100 mg 0-28 02-22 capsule by [facility] of capsule 00:00: 00:00 mouth 2 [place] 00 :00 (two) Medical times [facility] daily. docusate 2020-04- No [id number] 100mg Take 1 [facility] 100 mg 0-28 02-22 capsule by [facility]y of capsule 00:00: 00:00 mouth 2 [place] 00 :00 (two) Medical times [facility] daily. gabapentin 2016- Yes Take by [facility] 300 mg 4-21 mouth ity of capsule 00:00: daily. [place] [address] [facility] Branch lidocaine 5 2017-0 Yes [facility] % (700 4-21 ity of mg/patch) 00:00: [place] patch 00 [facility] gabapentin 2017-0 Yes Take by [facility] 300 mg 4-21 mouth ity of capsule 00:00: daily. [place] [facility] lidocaine 5 2017-0 Yes [facility] % (700 4-21 ity of mg/patch) 00:00: [place] patch 00 [facility] gabapentin 2017-0 Yes Take by [facility] ers 300 mg 4-21 mouth ity of capsule 00:00: daily. [place] [facility] lidocaine 5 2017-0 Yes [facility] % (700 4-21 ity of mg/patch) 00:00: [place] patch 00 [facility] gabapentin 2017-0 Yes Take by [facility] ers 300 mg 4-21 mouth ity of capsule 00:00: daily. [place] [facility] lidocaine 5 2017-0 Yes [facility] % (700 4-21 ity of mg/patch) 00:00: [place] patch 00 [facility] gabapentin 2017-0 Yes Take by [facility] ers 300 mg 4-21 mouth ity of capsule 00:00: daily. [place] [facility] lidocaine 5 2017-0 Yes [facility] % (700 4-21 ity of mg/patch) 00:00: [place] patch 00 [facility] gabapentin 2017-0 Yes Take by [facility] 300 mg 4-21 mouth ity of capsule 00:00: daily. [facility] lidocaine 5 2017-0 Yes Univer s % (700 4-21 ity of mg/patch) 00:00: [place] patch 00 [facility] gabapentin 2017-0 Yes Take by [facility] 300 mg 4-21 mouth ity of capsule 00:00: daily. [facility] lidocaine 5 2017-0 Yes Univer [facility] % (700 4-21 ity of mg/patch) 00:00: [place] patch [facility] gabapentin 2017-0 Yes Take by [facility] 300 mg 4-21 mouth ity of capsule 00:00: daily. [place] [facility] lidocaine 5 2017-0 Yes Univer [facility] % (700 4-21 ity of mg/patch) 00:00: [place] patch 00 [facility] gabapentin 2017-0 Yes Take by [facility] 300 mg 4-21 mouth ity of capsule 00:00: daily. [facility] lidocaine 5 2017-0 Yes Univer [...] 4-21 mouth ity of capsule 00:00: daily. [facility] lidocaine 5 2017-0 Yes Univer [facility] % (700 4-21 ity of mg/patch) 00:00: [place] patch [facility] gabapentin 2017-0 Yes Take by [facility] 300 mg 4-21 mouth ity of capsule 00:00: daily. [place] [facility] lidocaine 5 2017-0 Yes Univer [...] 4-21 mouth ity of capsule 00:00: daily. [place] [facility] lidocaine 5 2017-0 Yes Univer [facility] % (700 4-21 ity of mg/patch) 00:00: [place] patch [facility] gabapentin 2017-0 Yes Take by [facility] 300 mg 4-21 mouth ity of capsule 00:00: daily. [place] [facility] lidocaine 5 2017-0 Yes Univer [...] 4-21 mouth ity of capsule 00:00: daily. [place] [facility] lidocaine 5 2017-0 Yes Univer [...] 4-21 mouth ity of capsule 00:00: daily. [place] [facility] lidocaine 5 2017-0 Yes Univer [facility] % (700 4-21 ity of mg/patch) 00:00: [place] patch 00 [facility] gabapentin 2017-0 Yes Take by [facility] 300 mg 4-21 mouth ity of capsule 00:00: daily. [place] [facility] lidocaine 5 2017-0 Yes Univer [facility] % (700 4-21 ity of mg/patch) 00:00: [place] patch 00 [facility] gabapentin 2017-0 Yes Take by [facility] 300 mg 4-21 mouth ity of capsule 00:00: daily. [facility] lidocaine 5 2017-0 Yes Univer [facility] % (700 4-21 ity of mg/patch) 00:00: [place] patch 00 [facility] gabapentin 2017-0 Yes Take by [facility] 300 mg 4-21 mouth ity of capsule 00:00: daily. [place] [facility] lidocaine 5 2017-0 Yes Univer [facility] % (700 4-21 ity of mg/patch) 00:00: [place] patch 00 [facility] gabapentin 2017-0 Yes Take by [facility] 300 mg 4-21 mouth ity of capsule 00:00: daily. [facility] lidocaine 5 2017-0 Yes Univer [facility] % (700 4-21 ity of mg/patch) 00:00: [place] patch 00 [facility] gabapentin 2017-0 Yes Take by [facility] 300 mg 4-21 mouth ity of capsule 00:00: daily. [facility] lidocaine 5 2017-0 Yes Univer [facility] % (700 4-21 ity of mg/patch) 00:00: [place] patch 00 [facility] gabapentin 2017-0 Yes Take by [facility] 300 mg 4-21 mouth ity of capsule 00:00: daily. [place] [facility] lidocaine 5 2017-0 Yes Univer [facility] % (700 4-21 ity of mg/patch) 00:00: [place] patch [facility] gabapentin 2017-0 Yes Take by [facility] 300 mg 4-21 mouth ity of capsule 00:00: daily. [place] [facility] lidocaine 5 2017-0 Yes Univer [facility] % (700 4-21 ity of mg/patch) 00:00: [place] patch 00 [facility] gabapentin 2017-0 Yes Take by [facility] 300 mg 4-21 mouth ity of capsule 00:00: daily. [place] [facility] lidocaine 5 2017-0 Yes Univer [...] 4-21 mouth ity of capsule 00:00: daily. [place] [facility] lidocaine 5 2017-0 Yes Un[facility] % (700 4-21 ity of mg/patch) 00:00: [place] patch [facility] gabapentin 2017-0 Yes Take by [facility] 300 mg 4-21 mouth ity of capsule 00:00: daily. [place] [facility] lidocaine 5 2017-0 Yes Univer [...] 4-21 mouth ity of capsule 00:00: daily. [place] [facility] lidocaine 5 2017-0 Yes Un[facility] % (700 4-21 ity of mg/patch) 00:00: [place] patch [facility] gabapentin 2017-0 Yes Take by [facility] 300 mg 4-21 mouth ity of capsule 00:00: daily. [place] [facility] lidocaine 5 2017-0 Yes Univer [...] 4-21 mouth ity of capsule 00:00: daily. [place] [facility] lidocaine 5 2017-0 Yes Univer [...] 4-21 mouth ity of capsule 00:00: daily. [place] [facility] lidocaine 5 2017-0 Yes Univer [facility] % (700 4-21 ity of mg/patch) 00:00: [place] patch 00 [facility] gabapentin 2017-0 Yes Take by [facility] 300 mg 4-21 mouth ity of capsule 00:00: daily. [place] [facility] lidocaine 5 2017-0 Yes Univer [facility] % (700 4-21 ity of mg/patch) 00:00: [place] patch 00 [facility] gabapentin 2017-0 Yes Take by [facility] 300 mg 4-21 mouth ity of capsule 00:00: daily. [place] [facility] lidocaine 5 2017-0 Yes Univer [facility] % (700 4-21 ity of mg/patch) 00:00: [place] patch 00 [facility] gabapentin 2017-0 Yes Take by [facility] 300 mg 4-21 mouth ity of capsule 00:00: daily. [place] [facility] lidocaine 5 2017-0 Yes Univer [facility] % (700 4-21 ity of mg/patch) 00:00: [place] patch 00 [facility] gabapentin 2017-0 Yes Take by [facility] 300 mg 4-21 mouth ity of capsule 00:00: daily. [place] [facility] lidocaine 5 2017-0 Yes Univer [facility] % (700 4-21 ity of mg/patch) 00:00: [place] patch 00 [facility] gabapentin 2017-0 Yes Take by [facility] 300 mg 4-21 mouth ity of capsule 00:00: daily. [place] [facility] lidocaine 5 2017-0 Yes Univer [facility] % (700 4-21 ity of mg/patch) 00:00: [place] patch 00 [facility] gabapentin 2017-0 Yes Take by [facility] 300 mg 4-21 mouth ity of capsule 00:00: daily. [place] [facility] lidocaine 5 2017-0 Yes Univer [facility] % (700 4-21 ity of mg/patch) 00:00: [place] patch [facility] gabapentin 2017-0 Yes Take by [facility] 300 mg 4-21 mouth ity of capsule 00:00: daily. [place] [facility] lidocaine 5 2017-0 Yes Univer [facility] % (700 4-21 ity of mg/patch) 00:00: [place] patch 00 [facility] gabapentin 2017-0 Yes Take by [facility] 300 mg 4-21 mouth ity of capsule 00:00: daily. [place] [facility] lidocaine 5 2017-0 Yes Univer [...] 4-21 mouth ity of capsule 00:00: daily. [place] [facility] lidocaine 5 2017-0 Yes Univer [facility] % (700 4-21 ity of mg/patch) 00:00: [place] patch [facility] gabapentin 2017-0 Yes Take by [facility] 300 mg 4-21 mouth ity of capsule 00:00: daily. [place] [facility] lidocaine 5 2017-0 Yes Univer [...] 4-21 mouth ity of capsule 00:00: daily. [place] [facility] lidocaine 5 2017-0 Yes Univer [facility] % (700 4-21 ity of mg/patch) 00:00: [place] patch [facility] gabapentin 2017-0 Yes Take by [facility] 300 mg 4-21 mouth ity of capsule 00:00: daily. [place] [facility] lidocaine 5 2017-0 Yes Univer [...] 4-21 mouth ity of capsule 00:00: daily. [place] [facility] lidocaine 5 2017-0 Yes Univer [...] 4-21 mouth ity of capsule 00:00: daily. [place] [facility] lidocaine 5 2017-0 Yes Univer [facility] % (700 4-21 ity of mg/patch) 00:00: [place] patch 00 [facility] gabapentin 2017-0 Yes Take by [facility] 300 mg 4-21 mouth ity of capsule 00:00: daily. [place] [facility] lidocaine 5 2017-0 Yes Univer [facility] % (700 4-21 ity of mg/patch) 00:00: [place] patch 00 [facility] gabapentin 2017-0 Yes Take by [facility] 300 mg 4-21 mouth ity of capsule 00:00: daily. [place] [facility] lidocaine 5 2017-0 Yes Univer [facility] % (700 4-21 ity of mg/patch) 00:00: [place] patch 00 [facility] gabapentin 2017-0 Yes Take by [facility] 300 mg 4-21 mouth ity of capsule 00:00: daily. [place] [facility] lidocaine 5 2017-0 Yes Univer [facility] % (700 4-21 ity of mg/patch) 00:00: [place] patch 00 [facility] gabapentin 2017-0 Yes Take by [facility] 300 mg 4-21 mouth ity of capsule 00:00: daily. [place] [facility] lidocaine 5 2017-0 Yes Univer [facility] % (700 4-21 ity of mg/patch) 00:00: [place] patch 00 [facility] gabapentin 2017-0 Yes Take by [facility] 300 mg 4-21 mouth ity of capsule 00:00: daily. [place] [facility] lidocaine 5 2017-0 Yes Univer s % (700 4-21 ity of mg/patch) 00:00: [place] patch 00 [facility] gabapentin 2017-0 Yes Take by [facility] 300 mg 4-21 mouth ity of capsule 00:00: daily. [place] [facility] lidocaine 5 2017-0 Yes Univer [facility] % (700 4-21 ity of mg/patch) 00:00: [place] patch [facility] gabapentin 2017-0 Yes Take by [facility] 300 mg 4-21 mouth ity of capsule 00:00: daily. [place] [facility] lidocaine 5 2017-0 Yes Univer [facility] % (700 4-21 ity of mg/patch) 00:00: [place] patch 00 [facility] gabapentin 2017-0 Yes Take by [facility] 300 mg 4-21 mouth ity of capsule 00:00: daily. [place] [facility] lidocaine 5 2017-0 Yes Univer [...] 4-21 mouth ity of capsule 00:00: daily. [place] [facility] lidocaine 5 2017-0 Yes Univer s % (700 4-21 ity of mg/patch) 00:00: [place] patch [facility] gabapentin 2017-0 Yes Take by [facility] 300 mg 4-21 mouth ity of capsule 00:00: daily. [place] [facility] lidocaine 5 2017-0 Yes Univer [...] 4-21 mouth ity of capsule 00:00: daily. [place] [facility] lidocaine 5 2017-0 Yes Univer [facility] % (700 4-21 ity of mg/patch) 00:00: [place] patch [facility] gabapentin 2017-0 Yes Take by [facility] 300 mg 4-21 mouth ity of capsule 00:00: daily. [place] [facility] lidocaine 5 2017-0 Yes Univer [...] 4-21 mouth ity of capsule 00:00: daily. [place] [facility] lidocaine 5 2017-0 Yes Univer [...] 4-21 mouth ity of capsule 00:00: daily. [place] [facility] lidocaine 5 2017-0 Yes Univer [facility] % (700 4-21 ity of mg/patch) 00:00: [place] patch 00 [facility] gabapentin 2017-0 Yes Take by [facility] 300 mg 4-21 mouth ity of capsule 00:00: daily. [place] [facility] lidocaine 5 2017-0 Yes Univer s % (700 4-21 ity of mg/patch) 00:00: [place] patch 00 [facility] gabapentin 2017-0 Yes Take by [facility] 300 mg 4-21 mouth ity of capsule 00:00: daily. [place] [facility] lidocaine 5 2017-0 Yes Univer s % (700 4-21 ity of mg/patch) 00:00: [place] patch [facility] gabapentin 2017-0 Yes Take by [facility] 300 mg 4-21 mouth ity of capsule 00:00: daily. [place] [facility] lidocaine 5 2017-0 Yes Univer s % (700 4-21 ity of mg/patch) 00:00: [place] patch [facility] gabapentin 2017-0 Yes Take by [facility] 300 mg 4-21 mouth ity of capsule 00:00: daily. [place] [facility] lidocaine 5 2017-0 Yes Univer s % (700 4-21 ity of mg/patch) 00:00: [place] patch [facility] gabapentin 2017-0 Yes Take by [facility] 300 mg 4-21 mouth ity of capsule 00:00: daily. [place] [facility] lidocaine 5 2017-0 Yes Univer s % (700 4-21 ity of mg/patch) 00:00: [place] patch 00 [facility] pantoprazol 2017-0 Yes Univer s e 40 mg EC 4-14 ity of tablet 00:00: [place] [facility] pantoprazol 2017-0 Yes Univer s e 40 mg EC 4-14 ity of tablet 00:00: [place] [facility] pantoprazol 2017-0 Yes Univer s e 40 mg EC 4-14 ity of tablet 00:00: [place] [facility] pantoprazol 2017-0 Yes Univer s e 40 mg EC 4-14 ity of tablet 00:00: [place] [facility] pantoprazol 2017-0 Yes Univer s e 40 mg EC 4-14 ity of tablet 00:00: [place] [facility] pantoprazol 2017-0 Yes Univer s e 40 mg EC 4-14 ity of tablet 00:00: [place] [facility] pantoprazol 2017-0 Yes Univer s e 40 mg EC 4-14 ity of tablet 00:00: [place] 00 [facility] pantoprazol 2017-0 Yes Univer s e 40 mg EC 4-14 ity of tablet 00:00: [place] [facility] pantoprazol 2017-0 Yes Univer s e 40 mg EC 4-14 ity of tablet 00:00: [place] [facility] pantoprazol 2017-0 Yes Univer s e 40 mg EC 4-14 ity of tablet 00:00: [place] [facility] pantoprazol 2017-0 Yes Univer s e 40 mg EC 4-14 ity of tablet 00:00: [place] [facility] pantoprazol 2017-0 Yes Univer s e 40 mg EC 4-14 ity of tablet 00:00: [place] [facility] pantoprazol 2017-0 Yes Univer s e 40 mg EC 4-14 ity of tablet 00:00: [place] [facility] pantoprazol 2017-0 Yes Univer s e 40 mg EC 4-14 ity of tablet 00:00: [place] [facility] pantoprazol 2017-0 Yes Univer s e 40 mg EC 4-14 ity of tablet 00:00: [place] [facility] pantoprazol 2017-0 Yes Univer s e 40 mg EC 4-14 ity of tablet 00:00: [place] [facility] pantoprazol 2017-0 Yes Univer s e 40 mg EC 4-14 ity of tablet 00:00: [place] [facility] pantoprazol 2017-0 Yes Univer s e 40 mg EC 4-14 ity of tablet 00:00: [place] [facility] pantoprazol 2017-0 Yes Univer s e 40 mg EC 4-14 ity of tablet 00:00: [place] [facility] pantoprazol 2017-0 Yes Univer s e 40 mg EC 4-14 ity of tablet 00:00: [place] [facility] pantoprazol 2017-0 Yes Univer s e 40 mg EC 4-14 ity of tablet 00:00: [place] [facility] pantoprazol 2017-0 Yes Univer s e 40 mg EC 4-14 ity of tablet 00:00: [place] [facility] pantoprazol 2017-0 Yes Univer s e 40 mg EC 4-14 ity of tablet 00:00: [place] [facility] pantoprazol 2017-0 Yes Univer s e 40 mg EC 4-14 ity of tablet 00:00: [place] [facility] pantoprazol 2017-0 Yes Univer s e 40 mg EC 4-14 ity of tablet 00:00: [place] [facility] pantoprazol 2017-0 Yes Univer s e 40 mg EC 4-14 ity of tablet 00:00: [place] [facility] pantoprazol 2017-0 Yes Univer s e 40 mg EC 4-14 ity of tablet 00:00: [place] [facility] pantoprazol 2017-0 Yes Univer s e 40 mg EC 4-14 ity of tablet 00:00: [place] [facility] pantoprazol 2017-0 Yes Univer s e 40 mg EC 4-14 ity of tablet 00:00: [place] [facility] pantoprazol 2017-0 Yes Univer s e 40 mg EC 4-14 ity of tablet 00:00: [place] [facility] pantoprazol 2017-0 Yes Univer s e 40 mg EC 4-14 ity of tablet 00:00: [place] [facility] pantoprazol 2017-0 Yes Univer s e 40 mg EC 4-14 ity of tablet 00:00: [place] [facility] pantoprazol 2017-0 Yes Univer s e 40 mg EC 4-14 ity of tablet 00:00: [address] pantoprazol 2017-0 Yes Univer s e 40 mg EC 4-14 ity of tablet 00:00: [place] [facility] pantoprazol 2017-0 Yes Univer s e 40 mg EC 4-14 ity of tablet 00:00: [place] [facility] pantoprazol 2017-0 Yes Univer s e 40 mg EC 4-14 ity of tablet 00:00: [place] [facility] pantoprazol 2017-0 Yes Univer s e 40 mg EC 4-14 ity of tablet 00:00: [place] [facility] pantoprazol 2017-0 Yes Univer s e 40 mg EC 4-14 ity of tablet 00:00: [place] [facility] pantoprazol 2017-0 Yes Univer s e 40 mg EC 4-14 ity of tablet 00:00: [place] [facility] pantoprazol 2017-0 Yes Univer s e 40 mg EC 4-14 ity of tablet 00:00: [place] [facility] pantoprazol 2017-0 Yes Univer s e 40 mg EC 4-14 ity of tablet 00:00: [place] 00 [facility] pantoprazol 2017-0 Yes Univer s e 40 mg EC 4-14 ity of tablet 00:00: [place] [facility] pantoprazol 2017-0 Yes Univer s e 40 mg EC 4-14 ity of tablet 00:00: [place] [facility] pantoprazol 2017-0 Yes Univer s e 40 mg EC 4-14 ity of tablet 00:00: [place] [facility] pantoprazol 2017-0 Yes Univer s e 40 mg EC 4-14 ity of tablet 00:00: [place] [facility] pantoprazol 2017-0 Yes Univer s e 40 mg EC 4-14 ity of tablet 00:00: [place] [facility] pantoprazol 2017-0 Yes Univer s e 40 mg EC 4-14 ity of tablet 00:00: [place] [facility] pantoprazol 2017-0 Yes Univer s e 40 mg EC 4-14 ity of tablet 00:00: [place] [facility] pantoprazol 2017-0 Yes Univer s e 40 mg EC 4-14 ity of tablet 00:00: [place] [facility] pantoprazol 2017-0 Yes Univer s e 40 mg EC 4-14 ity of tablet 00:00: [address] pantoprazol 2017-0 Yes Univer s e 40 mg EC 4-14 ity of tablet 00:00: [address] pantoprazol 2017-0 Yes Univer s e 40 mg EC 4-14 ity of tablet 00:00: [address] Branch pantoprazol 2017-0 Yes Univer s e 40 mg EC 4-14 ity of tablet 00:00: [place] [facility] pantoprazol 2017-0 Yes Univer s e 40 mg EC 4-14 ity of tablet 00:00: [place] [facility] pantoprazol 2017-0 Yes Univer s e 40 mg EC 4-14 ity of tablet 00:00: [place] [facility] pantoprazol 2017-0 Yes Univer s e 40 mg EC 4-14 ity of tablet 00:00: [place] [facility] pantoprazol 2017-0 Yes Univer s e 40 mg EC 4-14 ity of tablet 00:00: [place] [facility] pantoprazol 2017-0 Yes Univer s e 40 mg EC 4-14 ity of tablet 00:00: [place] 00 [facility] pantoprazol 2017-0 Yes Univer s e 40 mg EC 4-14 ity of tablet 00:00: [place] 00 [facility] pantoprazol 2017-0 Yes Univer s e 40 mg EC 4-14 ity of tablet 00:00: [place] [facility] pantoprazol 2017-0 Yes Univer s e 40 mg EC 4-14 ity of tablet 00:00: [place] [facility] pantoprazol 2017-0 Yes Univer s e 40 mg EC 4-14 ity of tablet 00:00: [place] [facility] pantoprazol 2017-0 Yes Univer s e 40 mg EC 4-14 ity of tablet 00:00: [place] [facility] pantoprazol 2017-0 Yes Univer s e 40 mg EC 4-14 ity of tablet 00:00: [place] [facility] pantoprazol 2017-0 Yes Univer s e 40 mg EC 4-14 ity of tablet 00:00: [place] [facility] pantoprazol 2017-0 Yes Univer s e 40 mg EC 4-14 ity of tablet 00:00: [place] [facility] pantoprazol 2017-0 Yes Univer s e 40 mg EC 4-14 ity of tablet 00:00: [place] [facility] pantoprazol 2017-0 Yes Univer s e 40 mg EC 4-14 ity of tablet 00:00: [place] [facility] pantoprazol 2017-0 Yes Univer s e 40 mg EC 4-14 ity of tablet 00:00: [place] [facility] pantoprazol 2017-0 Yes Univer s e 40 mg EC 4-14 ity of tablet 00:00: [place] [facility] pantoprazol 2017-0 Yes Univer s e 40 mg EC 4-14 ity of tablet 00:00: [place] [facility] pantoprazol 2017-0 Yes Univer s e 40 mg EC 4-14 ity of tablet 00:00: [place] [facility] pantoprazol 2017-0 Yes Univer s e 40 mg EC 4-14 ity of tablet 00:00: [place] [facility] pantoprazol 2017-0 Yes Univer s e 40 mg EC 4-14 ity of tablet 00:00: [place] [facility] pantoprazol 2017-0 Yes Univer s e 40 mg EC 4-14 ity of tablet 00:00: [place] [facility] pantoprazol 2017-0 Yes Univer s e 40 mg EC 4-14 ity of tablet 00:00: [place] [facility] pantoprazol 2017-0 Yes Univer s e 40 mg EC 4-14 ity of tablet 00:00: [place] [facility] pantoprazol 2017-0 Yes Univer s e 40 mg EC 4-14 ity of tablet 00:00: [place] [facility] pantoprazol 2017-0 Yes Univer s e 40 mg EC 4-14 ity of tablet 00:00: [place] [facility] pantoprazol 2017-0 Yes Univer s e 40 mg EC 4-14 ity of tablet 00:00: [place] [facility] pantoprazol 2017-0 Yes Univer s e 40 mg EC 4-14 ity of tablet 00:00: [place] [facility] pantoprazol 2017-0 Yes Univer s e 40 mg EC 4-14 ity of tablet 00:00: [address] pantoprazol 2017-0 Yes Univer s e 40 mg EC 4-14 ity of tablet 00:00: [place] [facility] pantoprazol 2017-0 Yes Univer s e 40 mg EC 4-14 ity of tablet 00:00: [address] pantoprazol 2017-0 Yes Univer s e 40 mg EC 4-14 ity of tablet 00:00: [place] [facility] pantoprazol 2017-0 Yes Univer s e 40 mg EC 4-14 ity of tablet 00:00: [place] [facility] pantoprazol 2017-0 Yes Univer s e 40 mg EC 4-14 ity of tablet 00:00: [place] [facility] pantoprazol 2017-0 Yes Univer s e 40 mg EC 4-14 ity of tablet 00:00: [place] [facility] pantoprazol 2017-0 Yes Univer s e 40 mg EC 4-14 ity of tablet 00:00: [place] [facility] pantoprazol 2017-0 Yes Univer s e 40 mg EC 4-14 ity of tablet 00:00: [place] [facility] pantoprazol 2017-0 Yes Univer s e 40 mg EC 4-14 ity of tablet 00:00: [place] [facility] pantoprazol 2017-0 Yes Univer s e 40 mg EC 4-14 ity of tablet 00:00: [place] [facility] pantoprazol 2017-0 Yes Univer s e 40 mg EC 4-14 ity of tablet 00:00: [place] 00 [facility] pantoprazol 2017-0 Yes Univer s e 40 mg EC 4-14 ity of tablet 00:00: [place] 00 [facility] pantoprazol 2017-0 Yes Univer s e 40 mg EC 4-14 ity of tablet 00:00: [place] [facility] pantoprazol 2017-0 Yes Univer s e 40 mg EC 4-14 ity of tablet 00:00: [place] [facility] pantoprazol 2017-0 Yes Univer s e 40 mg EC 4-14 ity of tablet 00:00: [place] [facility] pantoprazol 2017-0 Yes Univer s e 40 mg EC 4-14 ity of tablet 00:00: [place] [facility] pantoprazol 2017-0 Yes Univer s e 40 mg EC 4-14 ity of tablet 00:00: [place] [facility] pantoprazol 2017-0 Yes Univer s e 40 mg EC 4-14 ity of tablet 00:00: [place] [facility] pantoprazol 2017-0 Yes Univer s e 40 mg EC 4-14 ity of tablet 00:00: [place] [facility] pantoprazol 2017-0 Yes Univer s e 40 mg EC 4-14 ity of tablet 00:00: [place] [facility] pantoprazol 2017-0 Yes Univer s e 40 mg EC 4-14 ity of tablet 00:00: [place] [facility] pantoprazol 2017-0 Yes Univer s e 40 mg EC 4-14 ity of tablet 00:00: [place] [facility] pantoprazol 2017-0 Yes Univer s e 40 mg EC 4-14 ity of tablet 00:00: [place] 00 [facility] pantoprazol 2017-0 Yes Univer s e 40 mg EC 4-14 ity of tablet 00:00: [place] 00 [facility] aspirin 81 2015- Yes 81mg [...] mouth 00 daily. [facility] aspirin 81 2016-1 [...] Immunizations Ordered Filled Immunization Date Status Comments [facility] e Immunization Name Name Influenza Virus 2021-03-06 [...] 18:09:00 134 mm[Hg] Univer sity of pressure [facility] Diastolic blood 2022-08-28 18:09:00 72 mm[Hg] Unive rsity of pressure [facility] Heart rate 2022-08-28 18:09:00 71 /min [facility] Respiratory rate 2022-08-28 18:09:00 19 /min [facility] Body height 2022-08-28 18:09:00 160 cm [facility] Body weight 2022-08-28 18:09:00 46.63 kg [facility] BMI 2022-08-28 18:09:00 18.21 kg/m2 [facility] Oxygen saturation in 2022-08-28 18:09:00 98 /min [facility] Arterial blood by [facility] Pulse oximetry Branch Systolic blood 2022-06-25 15:38:00 137 mm[Hg] Univer sity of pressure [facility] Diastolic blood 2022-06-25 15:38:00 46 mm[Hg] Unive rsity of pressure [facility] Heart rate 2022-06-25 15:38:00 56 /min [facility] Body temperature 2022-06-25 15:38:00 36.11 Allie [facility] Respiratory rate 2022-06-25 15:38:00 17 /min [facility] Body height 2022-06-25 15:38:00 160 cm [facility] [place] [facility] Body weight 2022-06-25 15:38:00 46.494 kg [facility] BMI 2022-06-25 15:38:00 18.16 kg/m2 [facility] Systolic blood 2022-06-12 13:39:00 124 mm[Hg] Univer sity of pressure [facility] Diastolic blood 2022-06-12 13:39:00 56 mm[Hg] Unive rsity of pressure [facility] Heart rate 2022-06-12 13:39:00 74 /min [facility] [place] [facility] Body temperature 2022-06-12 13:39:00 36.67 [facility]ie [facility] [place] [facility] Respiratory rate 2022-06-12 13:39:00 18 /min [facility] [place] [facility] Oxygen saturation in 2022-06-12 13:39:00 100 /min [facility] Arterial blood by [place] [employer] tyrone Pulse oximetry Branch Body weight 2022-06-12 10:12:00 46.494 kg [facility] BMI 2022-06-12 10:12:00 18.16 kg/m2 [facility] Body height 2022-06-06 23:33:00 160 cm [facility] HEIGHT 2022-05-18 09:00:00 160 cm WEIGHT 2022-05-18 09:00:00 47.9 kg HEIGHT 2022-05-18 09:00:00 160 cm WEIGHT 2022-05-18 09:00:00 47.9 kg Systolic blood 2022-05-10 17:56:00 153 mm[Hg] [facility] Diastolic blood 2022-05-10 17:56:00 47 mm[Hg] [facility] Heart rate 2022-05-10 17:54:00 68 /min [facility] Respiratory rate 2022-05-10 17:54:00 20 /min [facility] Body height 2022-05-10 17:54:00 160 cm [facility] Body weight 2022-05-10 17:54:00 46.085 kg [facility] BMI 2022-05-10 17:54:00 18.00 kg/m2 [facility] Oxygen saturation in 2022-05-10 17:54:00 99 /min [facility] [place] [facility] P[facility] oxim[facility] Systolic blood 2022-02-28 19:10:00 161 mm[Hg] [facility] [place] [facility] Diastolic blood 2022-02-28 19:10:00 59 mm[Hg] [facility] Heart rate 2022-02-28 19:10:00 50 /min [facility] Oxygen saturation in 2022-02-28 19:10:00 100 /min [facility] Arterial blood by [place] [employer] tyrone Pulse oximetry Branch Body temperature 2022-02-28 19:08:00 36.11 Allie [facility] Respiratory rate 2022-02-28 19:08:00 16 /min [facility] Body weight 2022-02-28 19:08:00 49.125 kg [facility] BMI 2022-02-28 19:08:00 19.18 kg/m2 [facility] Systolic blood 2022-06-25 15:38:00 137 mm[Hg] [facility] [place] [facility] Diastolic blood 2022-06-25 15:38:00 46 mm[Hg] [facility] Heart rate 2022-06-25 15:38:00 56 /min [facility] Body temperature 2022-06-25 15:38:00 36.11 Allie [facility] Respiratory rate 2022-06-25 15:38:00 17 /min [facility] Body height 2022-06-25 15:38:00 160 cm [facility] Body weight 2022-06-25 15:38:00 46.494 kg [facility] BMI 2022-06-25 15:38:00 18.16 kg/m2 [facility] Systolic blood 2022-06-12 13:39:00 124 mm[Hg] [facility] [place] [facility] Diastolic blood 2022-06-12 13:39:00 56 mm[Hg] [facility] Heart rate 2022-06-12 13:39:00 74 /min [facility] Body temperature 2022-06-12 13:39:00 36.67 Allie [facility] Respiratory rate 2022-06-12 13:39:00 18 /min [facility] Oxygen saturation in 2022-06-12 13:39:00 100 /min [facility] blood by [place] [employer] tyrone Pulse oximetry Branch Body weight 2022-06-12 10:12:00 46.494 kg [facility] BMI 2022-06-12 10:12:00 18.16 kg/m2 [facility] Body height 2022-06-06 23:33:00 160 cm [facility] Systolic blood 2022-05-27 16:06:00 109 mm[Hg] [facility] Diastolic blood 2022-05-27 16:06:00 53 mm[Hg] [facility] Heart rate 2022-05-27 16:03:00 69 /min [facility] Body temperature 2022-05-27 16:03:00 37.11 Allie [facility] Respiratory rate 2022-05-27 16:03:00 17 /min [facility] Oxygen saturation in 2022-05-27 16:03:00 96 /min [facility] Arterial blood by Medical Ce nter Pulse oximetry Systolic blood 2022-05-24 07:00:00 117 mm[Hg] [facility] Diastolic blood 2022-05-24 07:00:00 73 mm[Hg] [facility] Heart rate 2022-05-24 07:00:00 81 /min [facility] Body temperature 2022-05-24 07:00:00 36.67 Allie [facility] Respiratory rate 2022-05-24 07:00:00 15 /min [facility] Oxygen saturation in 2022-05-24 07:00:00 96 /min [facility] Arterial blood by Medical Ce nter Pulse oximetry Systolic blood 2022-05-22 08:00:00 126 mm[Hg] [facility] Diastolic blood 2022-05-22 08:00:00 62 mm[Hg] [facility] Heart rate 2022-05-22 08:00:00 63 /min [facility] Respiratory rate 2022-05-22 08:00:00 24 /min [facility] Oxygen saturation in 2022-05-22 08:00:00 98 /min [facility] Arterial blood by Medical Ce nter Pulse oximetry Body temperature 2022-05-21 16:00:00 36.67 Allie [facility] Systolic blood 2022-05-21 08:23:00 127 mm[Hg] [facility] Diastolic blood 2022-05-21 08:23:00 65 mm[Hg] [facility] Heart rate 2022-05-21 07:30:00 76 /min [facility] Respiratory rate 2022-05-21 07:30:00 17 /min [facility] Oxygen saturation in 2022-05-21 07:30:00 98 /min [facility] Arterial blood by Medical Ce nter Pulse oximetry Body temperature 2022-05-21 00:00:00 36.17 Allie [facility] Body height 2022-05-18 09:00:00 160 cm [facility] Body weight 2022-05-18 09:00:00 47.9 kg [facility] BMI 2022-05-18 09:00:00 18.71 kg/m2 [facility] Procedures Procedure Date / Time Performing Clinician Source Performed EXTERNAL PROVIDER - ADC 2022-11-09 05:01:00 Doctor Unassigned, N o [facility] CARDIOLOGY Name Medical Branch MEDICAL RELEASE/CLEARANCE 2022-10-04 05:01:00 Doctor Unassigned, No [facility] FORMS Name Medical Branch MEDICAL RELEASE/CLEARANCE 2022-08-23 05:01:00 Doctor Unassigned, No [facility] FORMS [facility] XR HIPS 2 VW RIGHT 2022-08-01 15:29:05 Joseph Cortes [facility] CONSENT/REFUSAL FOR 2022-08-01 15:11:45 Doctor Unassigned, No [facility] [place] DI[facility]NOSIS [facility] TREATMENT Name Medical Branch ASSIGNMENT OF BENEFITS 2022-08-01 15:11:28 Doctor Unassigned, No [facility] PROTHROMBIN TIME / INR 2022-07-10 14:51:00 Jamaica Dan [facility] CONSENT/REFUSAL FOR 2022-07-10 14:37:14 Doctor Unassigned, No [facility] [place] DIAG[facility]IS [facility] TREATMENT Name Medical Branch CONSENT/REFUSAL FOR 2022-07-10 14:37:14 Doctor Unassigned, No [facility] DIAGNOSIS AND TREATMENT Name Medical Branch ASSIGNMENT OF BENEFITS 2022-07-10 14:36:56 Doctor Unassigned, No [facility] Name [facility] ASSIGNMENT OF BENEFITS 2022-07-10 14:36:56 Doctor Unassigned, No [facility] PROTHROMBIN TIME / INR 2022-06-25 15:22:00 Jamaica Dan [facility] PROTHROMBIN TIME / INR 2022-06-12 08:34:00 [facility] MAGNESIUM 2022-06-12 08:34:00 Omkar eda [facility] BASIC METABOLIC PANEL 2022-06-12 08:34:00 [facility] (NA, K, CL, CO2, GLUCOSE, Medica l Branch BUN, CREATININE, CA) CBC WITH DIFF 2022-06-12 08:34:00 Omkar [facility] ACTIVATED PARTIAL 2022-06-12 08:34:00 Demond [facility] MAGNESIUM 2022-06-12 08:34:00 [facility] BASIC METABOLIC PANEL 2022-06-12 08:34:00 Omkar eda [facility] (NA, K, CL, CO2, GLUCOSE, Medica l Branch BUN, CREATININE, CA) CBC WITH DIFF 2022-06-12 08:34:00 Leslie Espitia [facility] PROTHROMBIN TIME / INR 2022-06-12 08:34:00 Mariia Cardona Un [facility] ACTIVATED PARTIAL 2022-06-12 08:34:00 Demond [facility] ACTIVATED PARTIAL 2022-06-12 02:29:00 Demond [facility] ACTIVATED PARTIAL 2022-06-12 02:29:00 Demond [facility] EXTRA TUBE LT. GREEN 2022-06-12 00:00:00 Mariia Cardona [facility] EXTRA TUBE LT. GREEN 2022-06-12 00:00:00 Mariia Cardona [facility] BLOOD CULTURE SCREEN 2022-06-11 19:48:00 Leslie Espitia U [facility] BLOOD CULTURE SCREEN 2022-06-11 19:48:00 Leslie Espitia [facility] BLOOD CULTURE SCREEN 2022-06-11 19:42:00 Leslie Espitia [facility] BLOOD CULTURE SCREEN 2022-06-11 19:42:00 Leslie Espitia [facility] TRANSESOPHAGEAL ECHO 2022-06-11 15:58:00 Juan Francisco [facility] (MARGA) COMPLETE W/ DOPPLER Nando Rios Medica l Branch AND COLOR TRANSESOPHAGEAL ECHO 2022-06-11 15:58:00 Juan Francisco [facility] ([place]) COMPLETE W/ DOPPLER [facility] AND COLOR ACTIVATED PARTIAL 2022-06-11 14:52:00 Demond [facility] ACTIVATED PARTIAL 2022-06-11 14:52:00 Demond [facility] PROTHROMBIN TIME / INR 2022-06-11 08:57:00 [facility] BASIC METABOLIC PANEL 2022-06-11 08:57:00 Les Ortega [facility] (NA, K, CL, CO2, GLUCOSE, Medica l Branch BUN, CREATININE, CA) MAGNESIUM 2022-06-11 08:57:00 Shayanonda Nithisha [facility] ACTIVATED PARTIAL 2022-06-11 08:57:00 Demond [facility] MAGNESIUM 2022-06-11 08:57:00 Jordan Nithisprashanth [facility] BASIC METABOLIC PANEL 2022-06-11 08:57:00 Jordan Nithisha [facility] (NA, K, CL, CO2, GLUCOSE, Medica l Branch BUN, CREATININE, CA) PROTHROMBIN TIME / INR 2022-06-11 08:57:00 Mariia Cardona Morteza [facility] ACTIVATED PARTIAL 2022-06-11 08:57:00 Demond [facility] HB ECG ROUTINE & RHYTHM 2022-06-11 07:47:48 Jordan [facility] ACTIVATED PARTIAL 2022-06-10 20:19:00 Demond [facility] ACTIVATED PARTIAL 2022-06-10 20:19:00 Demond [facility] HB ECG ROUTINE & RHYTHM 2022-06-10 16:35:44 Jordan [facility] HB ECG ROUTINE & RHYTHM 2022-06-10 16:35:44 Jordan [facility] MAGNESIUM 2022-06-10 08:20:00 Leslie Espitia [facility] BASIC METABOLIC PANEL 2022-06-10 08:20:00 Leslie Espitia [facility] (NA, K, CL, CO2, GLUCOSE, Medica l Branch BUN, CREATININE, CA) CBC WITH DIFF 2022-06-10 08:20:00 Leslie Espitia [facility] PROTHROMBIN TIME / INR 2022-06-10 08:20:00 Leslie Espitia [facility] ACTIVATED PARTIAL 2022-06-10 08:20:00 Demond [facility] MAGNESIUM 2022-06-10 08:20:00 Leslie Espitia [facility] BASIC METABOLIC PANEL 2022-06-10 08:20:00 Omkar eda [facility] (NA, K, CL, CO2, GLUCOSE, Medica l Branch BUN, CREATININE, CA) CBC WITH DIFF 2022-06-10 08:20:00 Omkar eda [facility] PROTHROMBIN TIME / INR 2022-06-10 08:20:00 Leslie Espitia [facility] ACTIVATED PARTIAL 2022-06-10 08:20:00 Demond [facility] EKG-12 LEAD 2022-06-10 04:08:10 Aicha [facility] ACTIVATED PARTIAL 2022-06-09 23:33:00 Demond, [facility] ACTIVATED PARTIAL 2022-06-09 23:33:00 Demond, [facility] ACTIVATED PARTIAL 2022-06-09 22:22:00 Demond, [facility] ACTIVATED PARTIAL 2022-06-09 22:22:00 Demond, [facility] BASIC METABOLIC PANEL 2022-06-09 20:19:00 Demond [facility] (NA, K, CL, CO2, GLUCOSE, Medica l Branch BUN, CREATININE, CA) BASIC METABOLIC PANEL 2022-06-09 20:19:00 Demond [facility] (NA, K, CL, CO2, GLUCOSE, Medica l Branch BUN, CREATININE, CA) HB ECG ROUTINE & RHYTHM 2022-06-09 16:45:40 Demond [facility] HB ECG ROUTINE & RHYTHM 2022-06-09 16:45:40 [facility] 2022-06-09 10:03:00 Leslie Espitia [facility] BASIC METABOLIC PANEL 2022-06-09 10:03:00 Leslie Espitia [facility] (NA, K, CL, CO2, GLUCOSE, Medica l Branch BUN, CREATININE, CA) CBC WITH DIFF 2022-06-09 10:03:00 Leslie Espitia [facility] PROTHROMBIN TIME / INR 2022-06-09 10:03:00 [facility] 2022-06-09 10:03:00 Leslie Espitia [facility] BASIC METABOLIC PANEL 2022-06-09 10:03:00 Leslie Espitia [facility] (NA, K, CL, CO2, GLUCOSE, Medica l Branch BUN, CREATININE, CA) CBC WITH DIFF 2022-06-09 10:03:00 Leslie Espitia [facility] PROTHROMBIN TIME / INR 2022-06-09 10:03:00 [facility] 2022-06-09 04:12:20 Taylor Hemyari [facility] EKG-12 LEAD 2022-06-09 04:12:20 Taylor Hemyari [facility] PROTHROMBIN TIME / INR 2022-06-08 17:35:00 Leslie Espitia [facility] PROTHROMBIN TIME / INR 2022-06-08 17:35:00 Leslie Espitia [facility] EKG-12 LEAD 2022-06-08 17:18:35 Taylor Hemlevi [facility] EKG-12 LEAD 2022-06-08 17:18:35 Taylor Hemlevi [facility] MAGNESIUM 2022-06-08 10:46:00 Leslie Espitia [facility] BASIC METABOLIC PANEL 2022-06-08 10:46:00 Leslie Espitia [facility] (NA, K, CL, CO2, GLUCOSE, Medica l Branch BUN, CREATININE, CA) CBC WITH DIFF 2022-06-08 10:46:00 Leslie Espitia [facility] MAGNESIUM 2022-06-08 10:46:00 Leslie Espitia Nilson [facility] BASIC METABOLIC PANEL 2022-06-08 10:46:00 Omkar eda [facility] (NA, K, CL, CO2, GLUCOSE, Medica l Branch BUN, CREATININE, CA) CBC WITH DIFF 2022-06-08 10:46:00 Leslie Espitia [facility] EKG-12 LEAD 2022-06-08 03:55:51 Taylor Hemyari [facility] EKG-12 LEAD 2022-06-08 03:55:51 [facility] 2022-06-07 17:56:10 Taylor Connell [facility] TRANSTHORACIC ECHO (TTE) 2022-06-07 17:56:10 Taylor Connell [facility] HB ECG ROUTINE & RHYTHM 2022-06-07 15:36:46 Leslie Espitia [facility] HB ECG ROUTINE & RHYTHM 2022-06-07 15:36:46 Leslie Espitia [facility] URINE DRUG (MSMS) - 2022-06-07 15:01:00 Opal Yen [facility] DRUG [facility] - 2022-06-07 15:01:00 Opal Yen [facility] COMPREHENSIVE DRUG [facility] CBC WITH DIFF 2022-06-07 10:51:00 Opal Yen [facility] BASIC METABOLIC PANEL 2022-06-07 10:51:00 Opal Yen [facility] (NA, K, CL, CO2, GLUCOSE, Medica l Branch BUN, CREATININE, CA) IRON PANEL 2022-06-07 10:51:00 Opal Yen [facility] BASIC METABOLIC PANEL 2022-06-07 10:51:00 Opal Yen [facility] (NA, K, CL, CO2, GLUCOSE, Medica l Branch BUN, CREATININE, CA) IRON PANEL 2022-06-07 10:51:00 Opal Yen [facility] CBC WITH DIFF 2022-06-07 10:51:00 Opal Yen [facility] BASIC METABOLIC PANEL 2022-06-07 02:29:00 Opal Yen [facility] (NA, K, CL, CO2, GLUCOSE, Medica l Branch BUN, CREATININE, CA) HEPATIC FUNCTION PANEL 2022-06-07 02:29:00 Opal Yen [facility] ([id number]) (ALB,T.PRO,BILI Medical Branch T,BU/BC,ALT,AST,ALK PHOS) MAGNESIUM 2022-06-07 02:29:00 Opal Yen [facility] FOLATE 2022-06-07 02:29:00 FarshadOpal [facility] MAGNESIUM 2022-06-07 02:29:00 FarshadOpal Jared [facility] FOLATE 2022-06-07 02:29:00 Farshad Opal Jared [facility] HEPATIC FUNCTION PANEL 2022-06-07 02:29:00 Opal Yen [facility] ([id number]) (ALB,T.PRO,BILI Medical Branch T,BU/BC,ALT,AST,ALK PHOS) BASIC METABOLIC PANEL 2022-06-07 02:29:00 Opal Yen [facility] (NA, K, CL, CO2, GLUCOSE, Medica l Branch BUN, CREATININE, CA) HB ECG ROUTINE & RHYTHM 2022-06-07 00:50:00 Opal Yen [facility] PROTHROMBIN TIME / INR 2022-06-07 00:33:00 Opal Yen [facility] ACTIVATED PARTIAL 2022-06-07 00:33:00 Opal Yen [facility] CBC WITH DIFF 2022-06-07 00:33:00 Opal Yen [facility] FERRITIN SERUM 2022-06-07 00:33:00 Opal Yen [facility] VITAMIN B12, LEVEL 2022-06-07 00:33:00 Opal Yen [facility] FERRITIN SERUM 2022-06-07 00:33:00 Opal Yen [facility] VITAMIN B12, LEVEL 2022-06-07 00:33:00 Opal Yen [facility] CBC WITH DIFF 2022-06-07 00:33:00 Opal Yen [facility] PROTHROMBIN TIME / INR 2022-06-07 00:33:00 Opal Yen [facility] ACTIVATED PARTIAL 2022-06-07 00:33:00 Opal Yen [facility] PROTHROMBIN TIME / INR 2022-06-06 16:10:00 Jamaica Dan [facility] HOSPITAL ADMISSION 2022-06-06 06:01:00 Doctor Unassigned, No Uni versity [facility] CBC W/PLT COUNT & AUTO 2022-05-27 04:37:00 Rick [facility] DIFFERENTIAL [place] PROTHROMBIN TIME/INR 2022-05-27 04:37:00 Rick, [facility] MAGNESIUM 2022-05-27 04:37:00 Rubén Meaghan [facility] BASIC METABOLIC PANEL 2022-05-27 04:37:00 Meaghan [facility] CBC W/PLT COUNT & AUTO 2022-05-27 04:37:00 Rick [facility] APTT 2022-05-26 09:28:00 [facility] [place] [facility] W/PLT COUNT & AUTO 2022-05-26 06:27:00 Rick [facility] PROTHROMBIN TIME/INR 2022-05-26 06:27:00 Rick [facility] MAGNESIUM 2022-05-26 06:27:00 Rubén Meaghan [facility] BASIC METABOLIC PANEL 2022-05-26 06:27:00 Meaghan [facility] APTT 2022-05-26 06:27:00 [facility] [place] CBC W/PLT COUNT & AUTO 2022-05-26 06:27:00 Rick, [facility] APTT 2022-05-26 00:28:00 [facility] [place] APTT 2022-05-25 22:25:00 [place], [facility] [place] APTT 2022-05-25 14:41:00 Efrain, [facility] [place] APTT 2022-05-25 12:13:00 [place], [facility] [place] BASIC METABOLIC PANEL 2022-05-25 07:29:00 Jakob [facility] MAGNESIUM 2022-05-25 07:29:00 Jakob [facility] ECG 12-LEAD 2022-05-25 06:42:59 Robert, [facility] ECG 12-LEAD 2022-05-25 06:42:59 Unknown, Hl7 [facility] APTT 2022-05-25 05:57:00 Efrain, [facility] APTT 2022-05-25 04:47:00 [place], [facility] CBC W/PLT COUNT & AUTO 2022-05-25 03:20:00 Rick, [facility] PROTHROMBIN TIME/INR 2022-05-25 03:20:00 Rick, [facility] APTT 2022-05-25 03:20:00 Meaghan [facility] CBC W/PLT COUNT & AUTO 2022-05-25 03:20:00 Rick, [facility] APTT 2022-05-24 20:02:00 Efrain, [facility] APTT 2022-05-24 17:36:00 Efrain, [facility] APTT 2022-05-24 10:31:00 Rick, [facility] APTT 2022-05-24 03:41:00 Efrain, [facility] APTT 2022-05-24 01:14:00 Efrain, [facility] CBC W/PLT COUNT & AUTO 2022-05-24 01:14:00 Rick, [facility] BASIC METABOLIC PANEL 2022-05-24 01:14:00 Rick, [facility] MAGNESIUM 2022-05-24 01:14:00 Rick, [facility] PHOSPHORUS 2022-05-24 01:14:00 Rick, [facility] PROTHROMBIN TIME/INR 2022-05-24 01:14:00 Rick, [facility] CBC W/PLT COUNT & AUTO 2022-05-24 01:14:00 Rcik, [facility] APTT 2022-05-23 18:18:00 [facility] 16:11:00 Pagan [facility] APTT 2022-05-23 08:24:00 Pagan Franc [facility] CBC W/PLT COUNT & AUTO 2022-05-23 04:23:00 Rick, [facility] BASIC METABOLIC PANEL 2022-05-23 04:23:00 Rick, [facility] MAGNESIUM 2022-05-23 04:23:00 Rick, [facility] PHOSPHORUS 2022-05-23 04:23:00 Rick, [facility] PROTHROMBIN TIME/INR 2022-05-23 04:23:00 Rick, [facility] APTT 2022-05-23 04:23:00 Efrain [facility] CBC W/PLT COUNT & AUTO 2022-05-23 04:23:00 Rick, [facility] APTT 2022-05-22 20:49:00 [place], [facility] HEMOGLOBIN AND HEMATOCRIT 2022-05-22 17:54:00 Rick, [facility] APTT 2022-05-22 13:59:00 Efrain [facility] CBC W/PLT COUNT & AUTO 2022-05-22 02:47:00 Rick, [facility] BASIC METABOLIC PANEL 2022-05-22 02:47:00 Rick, [facility] MAGNESIUM 2022-05-22 02:47:00 Rick, [facility] PHOSPHORUS 2022-05-22 02:47:00 Rick, [facility] PROTHROMBIN TIME/INR 2022-05-22 02:47:00 Rick, Katarina [facility] APTT 2022-05-22 02:47:00 SerBertrand willoughby [facility] Verterra [place] CBC W/PLT COUNT & AUTO 2022-05-22 02:47:00 [facility] RBC 2022-05-21 23:54:00 Vinayak Cook [facility] HEMOGLOBIN AND HEMATOCRIT 2022-05-21 21:35:00 [facility]/INR 2022-05-21 14:45:00 Rick, [facility] APTT 2022-05-21 14:45:00 Efrain [facility] 2D ECHO W/ DOPPLER 2022-05-21 13:06:46 Vitaly Flores [facility] (CW/PW/COLOR) [place] 2D ECHO W/ DOPPLER 2022-05-21 13:06:46 Vitaly Flores [facility] (CW/PW/COLOR) [place] HEMOGLOBIN AND HEMATOCRIT 2022-05-21 12:50:00 Rick [facility] TSH/FREE T4 IF INDICATED 2022-05-21 12:50:00 [facility] 20[facility]-05-21 08:34:00 Efrain [facility] CBC W/PLT COUNT & AUTO 2022-05-21 05:00:00 Katarina Cabrera [facility] BASIC METABOLIC PANEL 2022-05-21 05:00:00 Rick [facility] MAGNESIUM 2022-05-21 05:00:00 [facility]US 2022-05-21 05:00:00 Rick, [facility] CBC W/PLT COUNT & AUTO 2022-05-21 05:00:00 Rick [facility] PROTHROMBIN TIME/INR 2022-05-21 01:15:00 Rick [facility] APTT 2022-05-21 01:15:00 Efrain [facility] HEMOGLOBIN AND HEMATOCRIT 2022-05-20 20:25:00 Rick, [facility] PROTHROMBIN TIME/INR 2022-05-20 17:07:00 Rick, [facility] APTT 2022-05-20 17:07:00 Lynnette Hsu [facility] HEMOGLOBIN AND HEMATOCRIT 2022-05-20 13:03:00 [facility] 2022-05-20 13:02:00 Lynnette Hsu [facility] TRANSFUSE LEUKO-REDUCED 2022-05-20 08:38:00 Damir Joyce [facility] RED BLOOD CELLS Center PREPARE RBC 2022-05-20 08:19:00 AdhVinayak foy [facility] APTT 2022-05-20 05:03:00 Efrain [facility] CBC W/PLT COUNT & AUTO 2022-05-20 03:36:00 Rick [facility] BASIC METABOLIC PANEL 2022-05-20 03:36:00 Rick [facility] MAGNESIUM 2022-05-20 03:36:00 Rick, [facility] PHOSPHORUS 2022-05-20 03:36:00 Rick [facility] PROTHROMBIN TIME/INR 2022-05-20 03:36:00 Rick [facility] CBC W/PLT COUNT & AUTO 2022-05-20 03:36:00 Rick [facility] APTT 2022-05-19 22:59:00 Efrain [facility] HEMOGLOBIN AND HEMATOCRIT 2022-05-19 21:17:00 Rick, [facility] PROTHROMBIN TIME/INR 2022-05-19 17:05:00 Rick, [facility] APTT 2022-05-19 17:05:00 Efrain [facility] HEMOGLOBIN AND HEMATOCRIT 2022-05-19 12:11:00 Katarina Cabrera [facility] PROTHROMBIN TIME/INR 2022-05-19 12:11:00 [facility]AD 2022-05-19 11:39:33 Vitaly Flores [facility] ECG 12-LEAD 2022-05-19 11:39:33 Unknown, Hl7 [facility] POCT-GLUCOSE METER 2022-05-19 05:28:00 Shadi Church [facility] Emilio [place] CBC W/PLT COUNT & AUTO 2022-05-19 03:08:00 Rick [facility] CBC W/PLT COUNT & AUTO 2022-05-19 03:08:00 Rick [facility] BASIC METABOLIC PANEL 2022-05-19 03:07:00 Rick [facility] MAGNESIUM 2022-05-19 03:07:00 Rick, [facility] PHOSPHORUS 2022-05-19 03:07:00 Rick, [facility] PROTHROMBIN TIME/INR 2022-05-19 03:07:00 Rick [facility] POCT-GLUCOSE METER 2022-05-18 23:02:00 Vinayak Cook [facility] ECG 12-LEAD 2022-05-18 21:08:01 [facility] 2022-05-18 21:08:01 Unknown, Hl7 Doctor [facility] BUN AND CREATININE 2022-05-18 20:38:00 [facility] W/RATIO [facility] POTASSIUM 2022-05-18 20:38:00 [facility] MAGNESIUM 2022-05-18 20:38:[address] [facility] [place] HEMOGLOBIN AND HEMATOCRIT 2022-05-18 20:01:00 Rick, [facility] POCT-GLUCOSE METER 2022-05-18 18:56:00 Vinayak Cook [facility] CTA ABDOMEN & PELVIS 2022-05-18 17:42:00 Rick, [facility] URINALYSIS W/ REFLEX 2022-05-18 15:23:00 Rick, [facility] URINE CULTURE [place] PROTHROMBIN TIME/INR 2022-05-18 15:23:00 Rick, [facility] HIGH SENSITIVITY TROPONIN 2022-05-18 15:23:00 Rick, [facility] URINE CULTURE 2022-05-18 15:23:00 Rick, [facility] CBC (HEMOGRAM ONLY) 2022-05-18 13:05:00 Rick, [facility] CALCIUM, IONIZED 2022-05-18 13:05:00 Rick, [facility] POCT-GLUCOSE METER 2022-05-18 12:55:00 Sean Graham [facility] Jesus Alberto Center ABORH, MANUAL 2022-05-18 11:55:00 Floridalma Monsalve [facility] TYPE AND SCREEN, 2022-05-18 11:02:00 Rick, [facility] AUTOMATED Center COMPREHENSIVE METABOLIC 2022-05-18 11:01:00 Rick, [facility] PANEL Center MAGNESIUM 2022-05-18 11:01:00 Rick, [facility] PHOSPHORUS 2022-05-18 11:01:00 Rick, [facility] LACTIC ACID, VENOUS 2022-05-18 11:01:00 Rick, [facility] LIPASE 2022-05-18 11:01:00 Rick, [facility] B-TYPE NATRIURETIC FACTOR 2022-05-18 11:01:00 Rick [facility] (BNP) [place] PT/APTT 2022-05-18 11:00:00 Katarina Cabrera [facility] FIBRINOGEN 2022-05-18 11:00:00 Katarina Cabrera [facility] ECG 12-LEAD 2022-05-18 10:34:14 [facility] 12-LEAD 2022-05-18 10:34:14 Unknown, Hl7 Doctor [facility] HB ECG ROUTINE & RHYTHM 2022-05-10 17:51:31 Wayne Rabago [facility] STRIP Medical Branch PROTHROMBIN TIME / INR 2022-05-09 16:24:00 [place] Dan [facility] CONSENT/REFUSAL FOR 2022-05-09 16:13:00 Doctor Unassigned, No [facility] Medical Branch ASSIGNMENT OF BENEFITS 2022-05-09 16:12:36 Doctor Unassigned, No [facility] Medical Branch ASSIGNMENT OF BENEFITS 2022-05-09 16:12:36 Doctor Unassigned, No [facility] Medical Branch PROTHROMBIN TIME / INR 2022-04-11 15:46:00 [place] Dan [facility] CONSENT/REFUSAL FOR 2022-04-11 15:36:05 Doctor Unassigned, No [facility] DIAGNOSIS AND TREATMENT Name Medical Branch ASSIGNMENT OF BENEFITS 2022-04-11 15:35:52 Doctor Unassigned, No [facility] Medical Branch ASSIGNMENT OF BENEFITS 2022-04-11 15:35:52 Doctor Unassigned, No [facility] Medical Branch MEDICATION CORRESPONDENCE 2022-03-18 06:01:00 Doctor Unassigned, No [facility] Medical Branch PROTHROMBIN TIME / INR 2022-03-14 15:29:00 [place] Dan [facility] CONSENT/REFUSAL FOR 2022-03-14 15:15:12 Doctor Unassigned, [facility] Name Medical Branch ASSIGNMENT OF BENEFITS 2022-03-14 15:15:00 Doctor Unassigned, No [facility] Name Medical Branch ASSIGNMENT OF BENEFITS 2022-03-14 15:15:00 Doctor Unassigned, No [facility] Medical Branch CONSENT/REFUSAL FOR 2022-02-28 18:42:52 Doctor Unassigned, No [facility] DIAGNOSIS AND TREATMENT [facility] Medical [place] CONSENT/REFUSAL FOR 2022-02-14 14:32:17 Doctor Unassigned, No Un [facility] DIAGNOSIS AND TREATMENT [facility] Medical [place] ASSIGNMENT OF BENEFITS 2022-02-14 14:32:04 Doctor Unassigned, No [facility] ASSIGNMENT OF BENEFITS 2021-12-14 17:04:14 Doctor Unassigned, No [facility] HOSPITAL ADMISSION 2021-11-23 05:01:00 Doctor Unassigned, No [facility] Plan of Care Planned Activity Planned [...] Ce nter Vaccine (#1)] Future Scheduled 2022-12-14 Influenza Vaccine (#1) [facility]00 [code = Influenza Medical Ce nter Vaccine (#1)] Future Scheduled 2022-12-14 Influenza Vaccine (#1) C [...] breast Medical C enter (procedure) [code = 860061112] Future Scheduled 1953 CT Colonography (combo) [facility] 00:00:00 [code = CT Colonography [facility] (combo)] Future Scheduled 1953 Screening for malignant [facility] 00:00:00 neoplasm of colon Medical Ce nter (procedure) [code = 304295418] Future Scheduled 1953 Screening for malignant [facility] Test 00:00:00 neoplasm of colon Medical Ce nter (procedure) [code = 482280746] Future Scheduled 1953 DXA SCAN [code = DXA [facility] 00:00:00 SCAN] [facility] Future Scheduled 1953 Screening for malignant [facility] Test 00:00:00 neoplasm of colon Medical Ce nter (procedure) [code = 005312938] Future Scheduled 1953 Screening for malignant [facility] Test 00:00:00 neoplasm of colon Medical Ce nter (procedure) [code = 721488409] Future Scheduled 1953 Sigmoidoscopy [code = [facility]oscopy] [facility] Future Scheduled 1953 Screening for malignant [facility] 00:00:00 neoplasm of breast Medical C enter (procedure) [code = 686545051] Future Scheduled 1953 CT Colonography (combo) [facility] 00:00:00 [code = CT Colonography [facility] (combo)] Future Scheduled 1953 Screening for malignant [facility] 00:00:00 neoplasm of colon Medical Ce nter (procedure) [code = 106497997] Future Scheduled 1953 Screening for malignant [facility] 00:00:00 neoplasm of colon Medical Ce nter (procedure) [code = 536132329] Future Scheduled 1953 DXA SCAN [code = DXA [facility] 00:00:00 SCAN] [facility] Future Scheduled 1953 Screening for malignant [facility] 00:00:00 neoplasm of colon Medical Ce nter (procedure) [code = 538703572] Future Scheduled 1953 Screening for malignant [facility] 00:00:00 neoplasm of colon Medical Ce nter (procedure) [code = 822347554] Future Scheduled 1953 Sigmoidoscopy [code = [facility] 00:[facility] S[facility]oidoscopy] [facility] Future Scheduled 1953 Screening for malignant [facility] 00:00:00 neoplasm of breast Medical C enter (procedure) [code = 504640508] Future Scheduled 1953 CT Colonography (combo) [facility] 00:00:00 [code = CT Colonography [facility] (combo)] Future Scheduled 1953 Screening for malignant [facility] 00:00:00 neoplasm of colon Medical Ce nter (procedure) [code = 753201684] Future Scheduled 1953 Screening for malignant [facility] 00:00:00 neoplasm of colon Medical Ce nter (procedure) [code = 600100501] Future Scheduled 1953 DXA SCAN [code = DXA [facility] 00:00:00 SCAN] [facility] Future Scheduled 1953 Screening for malignant [facility] 00:00:00 neoplasm of colon Medical Ce nter (procedure) [code = 306418869] Future Scheduled 1953 Screening for malignant [facility] 00:00:00 neoplasm of colon Medical Ce nter (procedure) [code = 069317888] Future Scheduled 1953 Sigmoidoscopy [facility]code = [facility] 1953 Screening for malignant [facility] 00:00:00 neoplasm of breast Medical C enter (procedure) [code = 650383764] Future Scheduled 1953 CT Colonography (combo) [facility] 00:00:00 [code = CT Colonography [facility] (combo)] Future Scheduled 1953 Screening for malignant [facility] 00:00:00 neoplasm of colon Medical Ce nter (procedure) [code = 496428527] Future Scheduled 1953 Screening for malignant [facility] 00:00:00 neoplasm of colon Medical Ce nter (procedure) [code = 860942272] Future Scheduled 1953 DXA SCAN [code = DXA [facility] 00:00:00 SCAN] [facility] Future Scheduled 1953 Screening for malignant [facility] 00:00:00 neoplasm of colon Medical Ce nter (procedure) [code = 509594289] Future Scheduled 1953 Screening for malignant [facility] 00:00:00 neoplasm of colon Medical Ce nter (procedure) [code = 607561053] Future Scheduled 1953 Sigmoidoscopy [code = [facility] 1953 Screening for malignant [facility] 00:00:00 neoplasm of breast Medical C enter (procedure) [code = 556818005] Future Scheduled 1953 CT Colonography (combo) [facility] 00:00:00 [code = CT Colonography [facility] (combo)] Future Scheduled 1953 Screening for malignant [facility] 00:00:00 neoplasm of colon Medical Ce nter (procedure) [code = 364356561] Future Scheduled 1953 Screening for malignant [facility] 00:00:00 neoplasm of colon Medical Ce nter (procedure) [code = 414559453] Future Scheduled 1953 DXA SCAN [code = DXA [facility] 00:00:00 SCAN] [facility] Future Scheduled 1953 Screening for malignant [facility] 00:00:00 neoplasm of colon Medical Ce nter (procedure) [code = 020313025] Future Scheduled 1953 Screening for malignant [facility] 00:00:00 neoplasm of colon Medical Ce nter (procedure) [code = 569690943] Future Scheduled 1953 Sigmoidoscopy [facility]code = [facility] 1953 Screening for malignant [facility] 00:00:00 neoplasm of breast Medical C enter (procedure) [code = 791048126] Future Scheduled 1953 CT Colonography (combo) [facility] 00:00:00 [code = CT Colonography [facility] (combo)] Future Scheduled 1953 Screening for malignant [facility] 00:00:00 neoplasm of colon Medical Ce nter (procedure) [code = 785132930] Future Scheduled 1953 Screening for malignant [facility] 00:00:00 neoplasm of colon Medical Ce nter (procedure) [code = 603373914] Future Scheduled 1953 DXA SCAN [code = DXA [facility] 00:00:00 SCAN] [facility] Future Scheduled 1953 Screening for malignant [facility] 00:00:00 neoplasm of colon Medical Ce nter (procedure) [code = 719203079] Future Scheduled 1953 Screening for malignant [facility] 00:00:00 neoplasm of colon Medical Ce nter (procedure) [code = 315742950] Future Scheduled 1953 Sigmoidoscopy [code = [facility] 00:[facility] S[facility]oscopy] [facility] Future Scheduled 1953 Screening for malignant [facility] 00:00:00 neoplasm of breast Medical C enter (procedure) [code = 304261076] Future Scheduled 1953 CT Colonography (combo) [facility] 00:00:00 [code = CT Colonography [facility] (combo)] Future Scheduled 1953 Screening for malignant [facility] 00:00:00 neoplasm of colon Medical Ce nter (procedure) [code = 444256699] Future Scheduled 1953 Screening for malignant [facility] 00:00:00 neoplasm of colon Medical Ce nter (procedure) [code = 123214556] Future Scheduled 1953 DXA SCAN [code = DXA [facility] 00:00:00 SCAN] [facility] Future Scheduled 1953 Screening for malignant [facility] 00:00:00 neoplasm of colon Medical Ce nter (procedure) [code = 517762717] Future Scheduled 1953 Screening for malignant [facility] 00:00:00 neoplasm of colon Medical Ce nter (procedure) [code = 583537297] Future Scheduled 1953 Sigmoidoscopy [code = [facility] 00:[facility] S[facility]oscopy] [facility] Future Scheduled 1953 Screening for malignant [facility] 00:00:00 neoplasm of breast Medical C enter (procedure) [code = 361106531] Future Scheduled 1953 CT Colonography (combo) [facility] 00:00:00 [code = CT Colonography [facility] (combo)] Future Scheduled 1953 Screening for malignant [facility] 00:00:00 neoplasm of colon Medical Ce nter (procedure) [code = 153423527] Future Scheduled 1953 Screening for malignant [facility] 00:00:00 neoplasm of colon Medical Ce nter (procedure) [code = 622631929] Future Scheduled 1953 DXA SCAN [code = DXA [facility] 00:00:00 SCAN] [facility] Future Scheduled 1953 Screening for malignant [facility] 00:00:00 neoplasm of colon Medical Ce nter (procedure) [code = 000430547] Future Scheduled 1953 Screening for malignant [facility] 00:00:00 neoplasm of colon Medical Ce nter (procedure) [code = 106170038] Future Scheduled 1953 Sigmoidoscopy [code = [facility] 00:00:[facility] S[facility]oscopy] [facility] Future Scheduled 1953 Screening for malignant [facility] 00:00:00 neoplasm of breast Medical C enter (procedure) [code = 291694106] Future Scheduled 1953 CT Colonography (combo) [facility] 00:00:00 [code = CT Colonography [facility] (combo)] Future Scheduled 1953 Screening for malignant [facility] 00:00:00 neoplasm of colon Medical Ce nter (procedure) [code = 991126987] Future Scheduled 1953 Screening for malignant [facility] 00:00:00 neoplasm of colon Medical Ce nter (procedure) [code = 278868000] Future Scheduled 1953 DXA SCAN [code = DXA [facility] 00:00:00 SCAN] [facility] Future Scheduled 1953 Screening for malignant [facility] 00:00:00 neoplasm of colon Medical Ce nter (procedure) [code = 390944314] Future Scheduled 1953 Screening for malignant [facility] 00:00:00 neoplasm of colon Medical Ce nter (procedure) [code = 809236827] Future Scheduled 1953 Sigmoidoscopy [code = [facility] 00:00:[facility] S[facility]oidoscopy] [facility] Future Scheduled 1953 Screening for malignant [facility] 00:00:00 neoplasm of breast Medical C enter (procedure) [code = 021276534] Future Scheduled 1953 CT Colonography (combo) [facility] 00:00:00 [code = CT Colonography [facility] (combo)] Future Scheduled 1953 Screening for malignant [facility] 00:00:00 neoplasm of colon Medical Ce nter (procedure) [code = 429000641] Future Scheduled 1953 Screening for malignant [facility] 00:00:00 neoplasm of colon Medical Ce nter (procedure) [code = 522815104] Future Scheduled 1953 DXA SCAN [code = DXA [facility] 00:00:00 SCAN] [facility] Future Scheduled 1953 Screening for malignant [facility] 00:00:00 neoplasm of colon Medical Ce nter (procedure) [code = 544889337] Future Scheduled 1953 Screening for malignant [facility] 00:00:00 neoplasm of colon Medical Ce nter (procedure) [code = 697542348] Future Scheduled 1953 Sigmoidoscopy [code = [facility] 00:[facility]oscopy] [facility] Cent[facility] Future Scheduled 1953 Screening for malignant [facility] 00:00:00 neoplasm of breast Medical C enter (procedure) [code = 089836658] Future Scheduled 1953 CT Colonography (combo) [facility] 00:00:00 [code = CT Colonography [facility] (combo)] Future Scheduled 1953 Screening for malignant [facility] 00:00:00 neoplasm of colon Medical Ce nter (procedure) [code = 302707146] Future Scheduled 1953 Screening for malignant [facility] 00:00:00 neoplasm of colon Medical Ce nter (procedure) [code = 223713092] Future Scheduled 1953 DXA SCAN [code = DXA [facility] 00:00:00 SCAN] [facility] Future Scheduled 1953 Screening for malignant [facility] 00:00:00 neoplasm of colon Medical Ce nter (procedure) [code = 366242468] Future Scheduled 1953 Screening for malignant [facility] Test 00:00:00 neoplasm of colon Medical Ce nter (procedure) [code = 746002241] Future Scheduled 1953 Sigmoidoscopy [facility]code [facility] Start End Encounter Admission Attending Care Care Encounter Source Date/Time Date/Time Type Type Clinicians Facility Department ID 2022-09-13 Outpatient ALEXANDRIASTJEANETTELESLI [facility] [id number] Common 13:24:02 DANIEL [id number] [facility] 2022-08-[address] [facility] [id number] Common 12:00:01 DANIEL [id number] [facility] 2022-08-15 Out[facility]IM[facility] [id number] Common 15:12:01 DANIEL [id number] [facility] 2022-08-14 Outpatient Dobson, STLMLC [facility] [id number] Common 08:50:01 Saurabh [id number] [facility] 2022-06-05 Inpatient R TAY[facility] [id number] Univers 07:56:00 TAYLOR SHIVMARIIA SIMS ity [facility] 2021-11-20 Inpatient R REBECA HOLCOMB [facility] MCA [id number] Univers 15:24:28 REBECA HOLCOMB i ty [facility] 2021-09-21 Outpatient Dobson, STLMLC [facility] [id number] Common 10:27:03 Saurabh [facility] 2023-02-28 2023-02-28 [facility] [id number] Univers 11:20:00 11:20:00 [place] scotty o f [facility] 2022-12-06 2022-12-06 Office [facility] [id number] Univers 09:00:00 09:00:00 Visit [place] ARANDA [id number] ity [facility] [id number] [id number] [address] 2022-12-06 2022-12-06 [facility] [id number] Univers 09:00:00 08:31:45 [place] scotty o f [facility] 2022-12-05 2022-12-05 [facility]phone [facility] [id number] Univers 00:00:00 00:00:00 [place] ARANDA [id number] ity [facility] [id number] [id number] [place] [address] [place] [address] 2022-11-30 2022-11-30 [facility] [id number] Univers 13:30:00 15:31:28 [place] perez o f [facility] 2022-11-30 2022-11-30 Office [facility] [id number] Univers 13:30:00 15:31:28 Visit [place] ARANDA [id number] ity of [id number] [id number] [address] 2022-11-30 2022-11-30 Telephone [facility] [id number] Univers 00:00:00 00:00:00 [place] ARANDA [id number] [place] [id number] [address] 2022-11-25 2022-11-25 [facility] [id number] Univers 00:00:00 00:00:00 [place] ARANDA [id number] it[id number] [id number] [facility] NAL [address] [place] [address] 2022-11-22 2022-11-22 [facility] [id number] Univers 00:00:00 00:00:00 [place] ARANDA [id number] it[place] [id number] [id number] [address] 2022-11-12 2022-11-12 [facility] [id number] Univers 00:00:00 00:00:00 [place] ARANDA [id number] [place] [id number] [address] 2022-11-09 2022-11-09 Orders Doctor JOHANN [id number] Univers 00:00:00 00:00:00 Only Unassigned, MIKE [id number] ity of [place] [facility] 4.2.7.2.686 Babak as [id number] [address] 2022-11-08 2022-11-08 Outpatient R HIMA [facility] [id number] Univers 08:00:00 08:00:00 WAYNE ity of [facility] 2022-10-24 2022-10-24 Refill [facility] [id number] Univers 00:00:00 00:00:00 Qiangjun [place] [id number] ity [place] [facility] [place] [facility] [id number] [id number] [place] dic[place] NAL [address] [place] [address] 2022-10-19 2022-10-19 Refill [facility] [id number] Univers 00:00:00 00:00:00 Qiangjun [place] [id number] ity of [place] [place] [facility] [id number] [id number] [place] dic[place] NAL [address] [place] [address] 2022-10-04 2022-10-04 Telephone [facility] [id number] Univers 00:00:00 00:00:00 Qiangjun [place] [id number] ity of [place] [place] [facility] [id number] [id number] [place] dic[place] NAL 9 [facility] 2022-10-04 2022-10-04 Telephone [facility] [id number] Univers 00:00:00 00:00:00 Qiangjun [place] [id number] ity of [place] [facility] [id number] [id number] [place] dic[place] N[place] [address] [place] [address] 2022-10-04 2022-10-04 Orders Doctor WILLS [id number] Univers 00:00:00 00:00:00 Only Unassigned, MIKE [id number] ity of [place] [facility] [id number] Babak as [id number] [address] 2022-09-26 2022-09-27 Outpatient R [facility] [id number] Univers 10:00:00 13:19:48 QIAMERZAHEER ity o f [facility] 2022-09-26 2022-09-26 Office [facility] 1.2.840.114 [id number] Univers 10:00:00 10:10:00 Visit Catrinajuan ARANDA 350.1.13.10 it[place] [id number] [place] N[place] 059 [facility] 2022-09-26 2022-09-26 Spanish Speaking Nanny Farnaz, Adc Lab Main [facility] [id number] [id number] Univers 09:45:00 10:00:00 Visit VivjaylendylanoYlande 350.1.13.10 it[place] of [place] 4[place] [id number] [place] NAL 353 [facility] 2022-09-26 2022-09-26 Telephone [facility] [id number] Univers 00:00:00 00:00:00 Rogerzaheer KENANJAVIER [id number] it[place] of [place] 4[place] [id number] [place] N[place] 059 [facility] 2022-08-29 2022-08-29 Telephone [facility] [id number] Univers 00:00:00 00:00:00 Rogerzaheer KENANJAVIER 350.1.13.10 it[place] 4[place] [id number] [place] N[place] 059 [facility] 2022-08-29 2022-08-29 Telephone [facility] 1.2.508.790 [id number] Univers 00:00:00 00:00:00 Catrinamerzaheer [place] [id number] ity [place] 4[place] [id number] [place]ical NAL 9 [facility] 2022-08-28 2022-08-28 Outpatient R [facility] [id number] Univers 15:40:00 16:40:51 ROGERZAHEER perez o f [facility] 2022-08-28 2022-08-28 Office [facility] 1.2.840.114 [id number] Univers 15:40:00 16:40:51 Visit [place] ARANDA 350.1.13.10 ity [place] [facility] 4.2.[place].2.[place] [phone] [place] NAL 059 [facility] 2022-08-28 2022-08-28 Spanish Speaking Nanny Farnaz, Andre Lab Main [facility] 1.2.8 40.114 [id number] Univers 13:30:00 13:45:00 Visit Sy [place] ARANDA 350.1.13.10 ity of [place] [facility] 4.2.[place].2.[place] [phone] [place] dical NAL 353 [facility] 2022-08-28 2022-08-28 Office [facility] 1.2.840.114 [id number] Univers 13:00:00 13:27:01 Visit [place] ARANDA 350.1.13.10 ity of [place] 4.2.7.2.[place] [phone] [place] dicmt NAL 059 [facility] 2022-08-23 2022-08-23 Orders Doctor JOHANN 1.2.840.114 [id number] Univers 00:00:00 00:00:00 Only Unassigned, MIKE 350.1.13.10 ity of [place] [facility] 4.2.7.2.686 Babak as [phone] [address] 2022-08-22 2022-08-22 Telephone [facility] 1.2.343.141 [id number] [id number] Univers 00:00:00 00:00:00 [place] ARANDA 350.1.13.10 ity of [place] [facility] 4.2.7.2.[place] [phone] [place] dical NAL 9 [facility] 2022-08-01 2022-08-01 Outpatient R SEBASTIAN [facility] [id number] Univers 10:11:06 23:59:00 JOSEPH ity of [facility] 2022-08-01 2022-08-01 [facility], [facility] 1.2.840.114 [id number] [facility] 10:11:06 23:59:00 Encounter Joseph Lau KENANJAVIER 350.1.13.10 it[place] of [place].2.7.2.[place] [id number] [facility] [address] [place] 2022-08-01 2022-08-01 Office [facility] 1.2.840.114 [id number] [facility] 15:50:00 16:00:00 Visit Catrinamerzaheer [place] 350.1.13.10 ity of [place] 4.2.7.2.[place] [phone] [place] dical NAL 059 [facility] 2022-08-01 2022-08-01 Spanish Speaking Nanny Farnaz, Adc Lab Main [facility] 1.2.8 40.114 [id number] [facility] 11:00:00 11:15:00 Visit [place] Dan 350.1.13.10 ity of [place] 4.2.7.2.[place] [id number] Ky dical NAL 353 [facility] 2022-08-01 2022-08-01 Telephone [facility] 1.2.990.556 [id number] Univers 00:00:00 00:00:00 [place]YS[place] 350.1.13.10 ity of [place] 4.2.7.2.[place] [id number] Ky dical NAL 059 [facility] 2022-07-31 2022-07-31 Telephone [facility] 1.2.113.929 [id number] Univers 00:00:00 00:00:00 [place] 350.1.13.10 ity of [place] 4.2.7.2.[place] [phone] [place] dical NAL 059 [facility] 2022-07-10 2022-07-10 Office [facility], 1.2.840.2 [id number] [facility] 13:00:00 14:24:58 Visit [place] 64730.1.1 ity of 3.104.2.7 [place] .3.208929 Medica l .8 [place] 2022-07-10 2022-07-10 Outpatient R SY, [facility] [id number] Univers 13:00:00 13:00:00 [place] perez o f [facility] 2022-07-10 2022-07-10 Spanish Speaking Nanny [place] 1.2.840.1 [id number] Univers 10:00:00 10:15:00 Visit Farnaz, Adc Lab Main 65568.1.1 ity of 3.104.2.7 [place] .3.077234 Medica l .8 [place] 2022-07-10 2022-07-10 Orders Doctor 1.2.840.3 [id number] Univers 00:00:00 00:00:00 Only Unassigned, 58708.1.1 ity of [place] 3.104.2.7 [place] .3.689453 Medica l .8 [place] 2022-07-10 2022-07-10 Telephone Sy, 1.2.840.8 [id number] Univers 00:00:00 00:00:00 [place] 65436.1.1 ity of 3.104.2.7 [place] .3.718875 Medica l .8 [place] 2022-06-25 2022-06-25 Outpatient R SY, [facility] [id number] Univers 15:40:00 16:09:43 [place] perez o f [facility] 2022-06-25 2022-06-25 Office Sy, 1.2.840.4 [id number] Univers 15:40:00 16:09:43 Visit [place] 68557.1.1 ity of 3.104.2.7 [place] .3.925989 Medica l .8 [place] 2022-06-25 2022-06-25 Spanish Speaking Nanny Jmaaica Dan 1.2.840.1 [id number] Univers 11:45:00 12:00:00 Visit Farnaz, Adc Lab Main 58825.1.1 ity of 3.104.2.7 [place] .3.406617 Medica l .8 [place] 2022-06-25 2022-06-25 Office Sy, 1.2.840.1 [id number] Univers 11:20:00 11:20:00 Visit [place] 40068.1.1 ity of 3.104.2.7 [place] .3.015322 Medica l .8 [place] 2022-06-25 2022-06-25 Telephone Sy, 1.2.840.8 [id number] Univers 00:00:00 00:00:00 [place] 41322.1.1 ity of 3.104.2.7 [place] .3.757913 Medica l .8 [place] 2022-06-25 2022-06-25 Travel 1.2.840.1 1.2.539.310 [id number] [id number] Univers 00:00:00 00:00:00 00064.1.1 350.1.13.10 ity of 3.104.2.7 4.2.7.3.698 [place] .3.262987 084.8 Medica l .8 [place] 2022-06-13 2022-06-13 Transition Isaak, 1.2.840.0 [id number] Univers 00:00:00 00:00:00 of Care Jeremy Ricardo 14392.1.1 it y of 3.104.2.7 [place] .3.557399 Medica l .8 [place] 2022-06-06 2022-06-12 Inpatient R MARIIA CARDONA [facility] [id number] Univers 17:19:00 12:24:00 MARIIA CARDONA ity of [facility] 2022-06-06 2022-06-12 Hospital Al Hemyari, 1.2.840.4 [id number] Univers 17:19:00 12:24:00 Encounter Mariia 09236.1.1 it y of 3.104.2.7 [place] .3.363655 Medica l .8 [place] 2022-06-06 2022-06-06 Spanish Speaking Nanny [place] 1.2.840.1 [id number] Univers 10:15:00 10:30:00 Visit Farnaz, Andre Lab Main 24949.1.1 ity of [place], [place] 3.104.2.7 [place] .3.002308 Medica l .8 [place] 2022-06-06 2022-06-06 Telephone Sy, 1.2.840.7 [id number] Univers 00:00:00 00:00:00 Qiangjun 58452.1.1 ity of 3.104.2.7 [place] .3.523773 Medica l .8 [place] 2022-06-06 2022-06-06 Travel 1.2.840.1 1.2.501.338 [id number] [id number] Univers 00:00:00 00:00:00 37519.1.1 350.1.13.10 ity of 3.104.2.7 4.2.7.3.698 [place] .3.450147 084.8 Medica l .8 [place] 2022-06-05 2022-06-05 Telephone Sewani, 1.2.840.7 [id number] Univers 00:00:00 00:00:00 Wayne 44492.1.1 ity of 3.104.2.7 [place] .3.471551 Medica l .8 [place] 2022-05-29 2022-05-29 Telephone Sewani, 1.2.840.7 [id number] Univers 00:00:00 00:00:00 Wayne 61729.1.1 ity of 3.104.2.7 [place] .3.301259 Medica l .8 [place] 2022-05-18 2022-05-27 Inpatient ER RUBÉN [facility] Medical ICU [id number] [facility] 08:42:00 16:40:00 MEAGHAN 2022-05-18 2022-05-27 Hospital ER Sean Graham [facility] [id number] [facility] 08:42:00 16:40:00 Encounter Vinayak Cook [facility] Carmen [employer] [facility] [place], Purnima Diane, Meaghan Leyva 2022-05-19 2022-05-19 Travel [facility] [id number] [facility] 00:[facility] 00:00:00 [facility] 2022-05-18 2022-05-18 Orders [facility] [id number] 00:00:00 00:00:00 Only [facility] 2022-05-18 2022-05-18 Telephone Santos [facility] [id number] 00:00:00 00:00:00 Sean Conteh anais [facility] 2022-05-10 2022-05-10 Outpatient R HIMA [facility] [id number] Univers 11:40:00 12:05:03 WAYNE ity of [facility] 2022-05-10 2022-05-10 Office [facility], 1.2.840.0 [id number] Univers 11:40:00 12:05:03 Visit Wayne 26914.1.1 ity of 3.104.2.7 [place] .3.512002 Medica l .8 [place] 2022-05-10 2022-05-10 Travel 1.2.840.1 1.2.238.607 [id number] Univers 00:00:00 00:00:00 74788.1.1 350.1.13.10 ity of 3.104.2.7 4.2.7.3.698 [place] .3.267037 084.8 Medica l .8 [place] 2022-05-09 2022-05-09 Spanish Speaking Nanny [place] Dan 1.2.840.1 [id number] Univers 10:30:00 10:45:00 Visit Pob, Adc Lab Main 17020.1.1 ity of 3.104.2.7 [place] .3.011015 Medica l .8 [place] 2022-05-09 2022-05-09 Outpatient R SY [facility] [id number] Univers 10:30:00 10:30:00 [place] scotty o f [facility] 2022-05-09 2022-05-09 Orders Doctor 1.2.840.0 [id number] Univers 00:00:00 00:00:00 Only Unassigned, 71627.1.1 ity of [place] 3.104.2.7 [place] .3.392005 Medica l .8 [place] 2022-05-09 2022-05-09 Telephone Sy, 1.2.840.6 [id number] Univers 00:00:00 00:00:00 Qiangzaheer 10640.1.1 ity of 3.104.2.7 [place] .3.153328 Medica l .8 [place] 2022-04-12 2022-04-12 [facility] [id number] Univers 11:00:00 11:00:00 WAYNE ity of [facility] 2022-04-12 2022-04-12 Outpatient Joan [facility] [id number] Univers 11:00:00 11:00:00 WAYNE ity [facility] 2022-04-11 2022-04-11 Spanish Speaking Nanny [place] Dan 1.2.840.1 [id number] Univers 09:45:00 10:00:00 Visit Pofredy, [facility] Lab Main 12182.1.1 ity of 3.104.2.7 [place] .3.242828 Medica l .8 [place] 2022-04-11 2022-04-11 Outpatient R SY [facility] [id number] Univers 09:45:00 09:45:00 [place] perez o f [facility] 2022-04-11 2022-04-11 Orders Doctor 1.2.840.9 [id number] Univers 00:00:00 00:00:00 Only Unassigned, 60080.1.1 ity of [place] 3.104.2.7 [place] .3.990890 Medica l .8 [place] 2022-04-11 2022-04-11 Telephone Sy, 1.2.840.8 [id number] Univers 00:00:00 00:00:00 Qiangjun 49948.1.1 ity of 3.104.2.7 [place] .3.406879 Medica l .8 [place] 2022-03-30 2022-03-30 Refill Sy, 1.2.840.1 [id number] Univers 00:00:00 00:00:00 [place] 74703.1.1 ity of 3.104.2.7 [place] .3.301495 Medica l .8 [place] 2022-03-15 2022-03-15 Telephone Sewani, 1.2.840.2 [id number] Univers 00:00:00 00:00:00 Wayne 72730.1.1 ity of 3.104.2.7 [place] .3.168762 Medica l .8 [place] 2022-03-14 2022-03-14 Spanish Speaking Nanny [place] aDn 1.2.840.1 [id number] Univers 09:30:00 09:45:00 Visit Pofredy, Adc Lab Main 00349.1.1 ity of 3.104.2.7 [place] .3.264502 Medica l .8 [place] 2022-03-14 2022-03-14 [facility] [id number] Univers 09:30:00 09:30:00 [place] ity o f [facility] 2022-03-14 2022-03-14 Orders Doctor 1.2.840.9 [id number] Univers 00:00:00 00:00:00 Only Unassigned, 73784.1.1 ity of [place] 3.104.2.7 [place] .3.242186 Medica l .8 [place] 2022-03-14 2022-03-14 Telephone Sy, 1.2.840.9 [id number] Univers 00:00:00 00:00:00 [place] 30273.1.1 ity of 3.104.2.7 [place] .3.368771 Medica l .8 [place] 2022-02-28 2022-02-28 Spanish Speaking Nanny 1, Adc Lab [facility] 1.2.840.114 [id number] Univers 13:30:00 13:45:00 Visit [place] Dan [place] 350.1.13.10 ity of [place] 4.2.7.2.686 [facility] [id number] [facility] tyrone [address] [place] 2022-02-28 2022-02-28 Outpatient R SY [facility] [id number] Univers 13:00:00 13:20:24 [place] jimenes [facility] 2022-02-28 2022-02-28 Office [facility] 1.2.840.114 [id number] Univers 13:00:00 13:20:24 Visit [place] ARANDA 350.1.13.10 ity of [place] [facility] [employer] [facility] [employer] 4.2.7.2.[place] [phone] [place] dical NAL [address] [place] [address] 2022-02-28 2022-02-28 Outpatient R [facility] [id number] Univers 13:00:00 13:00:[address] [place] [facility] 2022-02-28 2022-02-28 Outpatient R [facility], [facility] [id number] Univers 13:00:00 13:00:00 [place] jimenes [facility] 2022-02-28 2022-02-28 Outpatient R [facility] [id number] Univers 13:00:00 13:00:[address] [facility] 2022-02-28 2022-02-28 Orders Doctor JOHANN 1.2.840.114 [id number] Univers 00:00:00 00:00:00 Only Unassigned, MIKE 350.1.13.10 ity of [place] [facility] 4.2.7.2.686 Babak as [phone] [address] 2022-02-28 2022-02-28 Telephone [facility] 1.2.656.610 [id number] Univers 00:00:00 00:00:00 [place] ARANDA 350.1.13.10 it[place] 4.2.7.2.[place] [phone] Ky dical NAL 9 [facility] 2022-02-14 2022-02-14 Spanish Speaking Nanny Farnaz, Adc Lab Main [facility] 1.2.8 40.114 [id number] Univers 09:45:00 10:00:00 Visit [place] Dan 350.1.13.10 ity of [place] 4.2.7.2.686 [place] [phone] Ky dical NAL 353 [facility] 2022-02-14 2022-02-14 [facility] [id number] Univers 09:45:00 09:45:00 [place] ity o f [facility] 2022-02-14 2022-02-14 Orders Doctor JOHANN 1.2.840.114 [id number] Univers 00:00:00 00:00:00 Only Unassigned, MIKE 350.1.13.10 [facility] 4.2.7.2.686 Babak as [phone] [address] 2022-02-14 2022-02-14 Telephone [facility] 1.2.601.160 [id number] Univers 00:00:00 00:00:00 Qiajuan [place] 350.1.13.10 ity of [place] 4.2.7.2.[place] [id number] Ky dical NAL 059 [facility] 2022-02-13 2022-02-13 [facility] 1.2.840.114 [id number] Univers 00:00:00 00:00:00 Rogerjun [place] 350.1.13.10 ity of [place] 4.2.7.2.686 [place] [id number] Ky dical NAL 059 [facility] 2022-01-27 2022-01-27 Telephone [facility] 1.2.464.433 [id number] Univers 00:00:00 00:00:00 Rogerjun [place] 350.1.13.10 ity of [place] 4.2.7.2.686 [place] [id number] Ky dical NAL 059 [facility] 2022-01-25 2022-01-25 Spanish Speaking Nanny Farnaz, Andre Lab Main [facility] 1.2.8 40.114 [id number] Univers 08:45:00 09:00:00 Visit [place] Dan 350.1.13.10 ity of [place] 4.2.7.2.686 [place] [id number] Ky dical NAL 353 [facility] 2022-01-25 2022-01-25 Outpatient R SY, [facility] [id number] Univers 08:45:00 08:45:00 QIANGZAHEER ity o f [facility] 2022-01-19 2022-01-19 Spanish Speaking Nanny Farnaz, Adc Lab Main [facility] 1.2.8 40.114 [id number] Univers 12:30:00 12:45:00 Visit [place] DanTON 350.1.13.10 ity of [place] 4.2.7.2.686 [place] [phone] [place] dical NAL [address] [place] [address] 2022-01-19 2022-01-19 Outpatient R SY, [facility] [id number] Univers 12:30:00 12:30:00 QIANGJUN ity o f [facility] 2022-01-19 2022-01-19 Telephone [facility] 1.2.604.781 [id number] Univers 00:00:00 00:00:00 Qiangjun [place] 350.1.13.10 ity of [place] 4.2.7.2.686 [place] [id number] [place] dical NAL [address] [place] [address] 2022-01-17 2022-01-17 Spanish Speaking Nanny Farnaz, Adc Lab Main [facility] 1.2.8 40.114 [id number] Univers 08:45:00 09:00:00 Visit [place] DanTON 350.1.13.10 ity of [place] 4.2.7.2.686 [place] [phone] [place] dical NAL [address] [place] [address] 2022-01-17 2022-01-17 Outpatient R SY, [facility] [id number] Univers 08:45:00 08:45:00 QIANGJUN ity o [facility] 2022-01-17 2022-01-17 Telephone [facility] 1.2.945.335 [id number] Univers 00:00:00 00:00:00 Qiangjun [place] 350.1.13.10 ity of [place] 4.2.7.2.[place] [id number] [place] dical NAL 9 [facility] 2021-12-28 2021-12-28 Spanish Speaking Nanny Farnaz, Adc Lab Main [facility] 1.2.8 40.114 [id number] Univers 10:30:00 10:45:00 Visit NoamYolande ROSI 350.1.13.10 ity of [place] 4.2.7.2.686 [place] [id number] [facility] 353 [facility] 2021-12-28 2021-12-28 Outpatient R NOAM, [facility] [id number] Univers 10:30:00 10:30:00 YOLANDE ity [facility] 2021-12-28 2021-12-28 Telephone SyLINDAIN 1.2.650.873 [id number] Univers 00:00:00 00:00:00 Catrinangjun PEDIATRIC 350.1.13.10 [place] of [place]2.[place].2.[place] [id number] [address] 2021-12-15 2021-12-15 [facility] 1.2.472.933 [id number] Univers 00:00:00 00:00:00 Qiangjun [place] 350.1.13.10 ity of [place] 4.2.7.2.[place] [phone] [address] 2021-12-15 2021-12-15 [facility]phone [facility] 1.2.649.165 [id number] 6127 Univers 00:00:00 00:00:00 Qiangjun [place] 350.1.13.10 ity of [place] 4.2.7.2.686 [place] 509.5947659 [place] dic[address] 2021-12-15 2021-12-15 [facility] 1.2.840.114 [id number] Univers 00:00:00 00:00:00 Qiangjun [place] 350.1.13.10 ity of [place] 4.2.7.2.686 [place] [phone] [place] dic[address] 2021-12-14 2021-12-14 Spanish Speaking Nanny Farnaz, Adc Lab Main [facility] 1.2.8 40.114 [id number] Univers 12:30:00 12:45:00 Visit [place] Dan 350.1.13.10 ity of [place] [facility] [employer] [facility] 4.2.7.2.686 [place] [id number] [address] 2021-12-14 2021-12-14 Outpatient R SY, [facility] [id number] Univers 12:30:00 12:30:00 [place] perez o f [facility] 2021-12-14 2021-12-14 Orders Doctor JOHANN 1.2.840.114 [id number] Univers 00:00:00 00:00:00 Only Unassigned, MIKE 350.1.13.10 [facility] [facility] [facility] 4.2.7.2.686 Babak as [phone] [facility] [address] 2021-12-04 2021-12-04 Spanish Speaking Nanny Farnaz, Adc Lab Main [facility] 1.2.8 40.114 [id number] Univers 14:15:00 14:30:00 Visit [place] Dan 350.1.13.10 ity of [place] [facility] 4.2.7.2.686 [place] [id number] [address] 2021-12-04 2021-12-04 Outpatient R [facility], [facility] [id number] Univers 14:15:00 14:15:00 [place] perez o [facility] 2021-12-04 2021-12-04 Outpatient R [facility], [facility] [id number] Univers 14:15:00 14:15:00 [place] perez o alfonso [facility] 2021-12-04 2021-12-04 Transition ALESIA Gamez 1.2.840.114 [id number] Univers 00:00:00 00:00:00 of Care Georgie SAMANIEGO 350.1.13.10 it y of [place] 4[place]2.7.2.[place] [id number] [facility] [address] 2021-12-04 2021-12-04 Telephone [facility] 1.2.890.980 [id number] Univers 00:00:00 00:00:00 [place] ARANDA 350.1.13.10 ity of [place] [facility] 4.2.7.2.686 [place] [phone] [facility]59 [facility] 2021-11-23 2021-12-01 Inpatient R REBECA HOLCOMB [facility] 10 [id number] Univers 15:31:00 14:11:00 REBECA HOLCOMB ity of [facility] 2021-11-23 2021-12-01 [facility] SHAYAN Holcomb 1.2.454.583 [id number] Univers 15:31:00 14:11:00 Encounter Rebeca MCKEON 350.1.13.10 ity of [facility] 4.2.7.2.686 Babak as [phone] [facility] [address] [place] 2021-12-01 2021-12-01 Telephone [facility] 1.2.864.922 [id number] Univers 00:00:00 00:00:00 Wayne ARANDA 350.1.13.10 i ty of [place].2.7.2.[place] [id number] [facility] 059 [facility] 2021-11-23 2021-11-23 Orders Doctor JOHANN 1.2.840.114 [id number] Univers 00:00:00 00:00:00 Only Unassigned, MIKE 350.1.13.10 ity of [place] [facility] 4.2.7.2.686 Babak as [phone] [facility] [address] [place] 2021-11-22 2021-11-22 Spanish Speaking Nanny Andre Osei Lab Main [facility] 1.2.8 40.114 [id number] Univers 07:45:00 08:00:00 Visit Jaamica Dan 350.1.13.10 ity of [place] 4.2.7.2.[place] [id number] [facility] 353 [facility] 2021-11-22 2021-11-22 Outpatient R SY [facility] [id number] Univers 07:45:00 07:45:00 [place] perez o f [facility] 2021-11-22 2021-11-22 Outpatient Joan DAN [facility] [id number] Univers 07:45:00 07:45:00 [place] perez o f [facility] 2021-11-20 2021-11-20 Telephone [facility] 1.2.077.943 [id number] Univers 00:00:00 00:00:00 [place] ARANDA 350.1.13.10 it[place] 4.2.7.2.[place] [id number] [place] 842739 [facility] 2021-11-10 2021-11-10 Spanish Speaking Nanny Farnaz, Adc Lab Main [facility] 1.2.8 40.114 [id number] Univers 16:45:00 17:00:00 Visit [place] Dan 350.1.13.10 ity of [place] [facility] 4.2.7.2.686 [place] [phone] [facility] 353 [facility] 2021-11-10 2021-11-10 Outpatient R [facility], [facility] [id number] Univers 16:45:00 16:45:00 [place] perez o [facility] 2021-11-10 2021-11-10 Outpatient R [facility], [facility] [id number] Univers 16:45:00 16:45:00 [place] perez o [facility] 2021-11-10 2021-11-10 [facility]phone [facility] [id number] Univers 00:00:00 00:00:00 [place] ARANDA [id number] [id number] [id number] [address] 2021-11-07 2021-11-07 Telephone [facility] [id number] Univers 00:00:00 00:00:00 h, Tareq HEALTH 350.1.13.10 i [id number] [id number] [place] [address] [address] OFFICE BUILDING 2021-11-06 2021-11-06 Spanish Speaking Nanny Farnaz, Adc Lab Main [facility] 1.2.8 [id number] [id number] Univers 13:15:00 13:30:00 Visit [place] [id number] it[id number] [id number] [facility] [address] [facility] 2021-11-06 2021-11-06 Outpatient R SY [facility] [id number] Univers 13:15:00 13:15:00 [place] perez o f [facility] 2021-11-06 2021-11-06 Outpatient R SY, [facility] [id number] Univers 13:15:00 13:15:00 [place] perez o f [facility] 2021-11-06 2021-11-06 [facility]phone [facility] [id number] Univers 00:00:00 00:00:00 [place] ARANDA [id number] [place] [id number] [id number] [address] 2021-11-06 2021-11-06 Telephone [facility] [id number] Univers 00:00:00 00:00:00 [place] HEALTH [id number] it [id number] [phone] [address] OFFICE BUILDING 2021-11-03 2021-11-03 [id number] Univers 15:00:00 15:40:28 WAYNE ity [facility] 2021-11-03 2021-11-03 [facility] [id number] Univers 15:00:00 15:40:28 WAYNE ity of [facility] 2021-11-03 2021-11-03 Office [facility] [id number] Univers 15:00:00 15:20:00 Visit [place] 350.1.13.10 i ty [place] 4[place]2.7.[place] [id number] [address] 2021-11-03 2021-11-03 [facility] [id number] Univers 15:00:00 15:00:00 WAYNE ity [facility] 2021-11-03 2021-11-03 Spanish Speaking Nanny Farnaz, Adc Lab Main [facility] 1.2.8 40.114 [id number] Univers 14:30:00 14:45:00 Visit Catrina Danmerzaheer ROSI [id number] it[place] [id number] [id number] [facility] [address] [facility] 2021-11-03 2021-11-03 [facility] [id number] Univers 11:00:00 11:00:00 WAYNE ity [facility] 2021-11-03 2021-11-03 [facility] [id number] Univers 11:00:00 11:00:00 WAYNE ity [facility] Clinics 2021-11-03 2021-11-03 [facility] [id number] Univers 11:00:00 11:00:00 WAYNE ity [facility] 2021-11-03 2021-11-03 Telephone [facility] 1.2.995.362 [id number] Univers 00:00:00 00:00:00 Rogerzaheer [place] 350.1.13.10 ity of [place] [id number] [place] dical NAL 9 [facility] 2021-10-25 2021-10-25 Refill [facility] 1.2.840.114 [id number] Univers 00:00:00 00:00:00 Rogerzaheer [place] 350.1.13.10 ity of [place] [phone] [place] dical NAL [address] [place] [address] 2021-10-23 2021-10-23 Spanish Speaking Nanny Farnaz, Adc Lab Main [facility] 1.2.8 40.114 [id number] Univers 10:15:00 10:30:00 Visit Sy [place] ARANDA 350.1.13.10 ity of [place] 4.[place] [id number] Ky dical NAL 353 [facility] 2021-10-23 2021-10-23 Outpatient R SY, [facility] [id number] Univers 10:15:00 10:15:00 CATRINAMERZAHEER scotty o f [facility] 2021-10-23 2021-10-23 Outpatient R SY, [facility] [id number] Univers 10:15:00 10:15:00 [place] perez o f [facility] 2021-10-23 2021-10-23 Orders Doctor JOHANN 1.2.840.114 [id number] Univers 00:00:00 00:00:00 Only Unassigned, MIKE 350.1.13.10 [facility] 4.2.7.2.686 Babak as [phone] [address] 2021-10-23 2021-10-23 [facility] 1.2.840.114 [id number] Univers 00:00:00 00:00:00 [place] ARANDA 350.1.13.10 ity of [place] [place] [facility] 4.2.7.2.[place] [id number] Ky dicmt NAL 059 [facility] 2021-10-23 2021-10-23 [facility]phone [facility] 1.2.715.222 [id number] 1983 [facility] 00:00:00 00:00:00 [place] ARANDA 350.1.13.10 ity of [place] [facility] 4.2.7.2.[place] [phone] Ky dical NAL 059 [facility] 2021-10-18 2021-10-18 Spanish Speaking Nanny Farnaz, Andre Lab Main [facility] 1.2.8 40.114 [id number] Univers 09:30:00 09:45:00 Visit Sy [place] ARANDA 350.1.13.10 ity of [place] [facility] 4.2.7.2.[place] [phone] Ky dical NAL 353 [facility] 2021-10-18 2021-10-18 Outpatient R SY, [facility] [id number] Univers 09:30:00 09:30:00 [place] scotty o f [facility] 2021-10-18 2021-10-18 Outpatient R SY, [facility] [id number] Univers 09:30:00 09:30:00 [place] ity o f [facility] 2021-10-18 2021-10-18 [facility]phone [facility] 1.2.203.776 [id number] Univers 00:00:00 00:00:00 Qiamerjun [place] 350.1.13.10 ity of [place] [phone] Ky dical NAL 9 [facility] 2021-10-13 2021-10-13 Spanish Speaking Nanny Farnaz, Adc Lab Main [facility] 1.2.8 40.114 [id number] Univers 10:45:00 11:00:00 Visit [place]TON 350.1.13.10 ity of [place] [phone] Ky dical NAL 353 [facility] 2021-10-13 2021-10-13 Outpatient R SY, [facility] [id number] Univers 10:45:00 10:45:00 [place] ity o [facility] 2021-10-13 2021-10-13 Outpatient R SY, [facility] [id number] Univers 10:45:00 10:45:00 QIAJUAN ity o [facility] 2021-10-13 2021-10-13 Telephone [facility] 1.2.519.407 [id number] Univers 00:00:00 00:00:00 Qiajuan [place] 350.1.13.10 ity of [place] 4[place]2.[place] [id number] Ky dical NAL 059 [facility] 2021-09-27 2021-09-27 Spanish Speaking Nanny Farnaz, Adc Lab Main [facility] 1.2.8 40.114 [id number] Univers 10:15:00 10:30:00 Visit [place] DanTON 350.1.13.10 ity of [place] 4.2.7.2.[place] [phone] Ky dical NAL 353 [facility] 2021-09-27 2021-09-27 Outpatient R SY, [facility] [id number] Univers 10:15:00 10:15:00 [place] ity o f [facility] 2021-09-27 2021-09-27 Outpatient R SY, [facility] [id number] Univers 10:15:00 10:15:00 QIAJUAN ity o f [facility] 2021-09-27 2021-09-27 Telephone [facility] 1.2.825.489 [id number] Univers 00:00:00 00:00:00 Qiamerjun [place] 350.1.13.10 ity of [place] 4.2.[place] [phone] [place] dicmt NAL [address] [place] [address] 2021-09-27 2021-09-27 [facility] 1.2.788.220 [id number] Univers 00:00:00 00:00:00 Qiajuan [place] 350.1.13.10 ity of [place] 4.2.[place] [id number] Ky dicmt NAL [address] [place] [address] 2021-09-21 2021-09-21 Refill [facility] 1.2.840.114 [id number] Univers 00:00:00 00:00:00 Rogerzaheer [place] 350.1.13.10 ity of [place] 4.2.7.2.[place] [phone] Ky dical NAL [address] [place] [address] 2021-09-01 2021-09-01 [facility] 1.2.357.347 [id number] Univers 00:00:00 00:00:00 Qiamerjun [place] 350.1.13.10 ity of [place] 4[place]2.[place] [phone] Ky dical NAL [address] [place] [address] 2021-08-30 2021-08-30 Spanish Speaking Nanny Farnaz, Adc Lab Main [facility] 1.2.8 40.114 [id number] Univers 09:00:00 09:15:00 Visit [place] Dan 350.1.13.10 ity of [place] 4.2.7.2.[place] [id number] Ky dical NAL 353 [facility] 2021-08-30 2021-08-30 Outpatient R SY, [facility] [id number] Univers 09:00:00 09:00:00 [place] ity o f [facility] 2021-08-30 2021-08-30 Outpatient R SY, [facility] [id number] Univers 09:00:00 09:00:00 QIAJUAN scotty o [facility] 2021-08-30 2021-08-30 Orders Doctor JOHANN 1.2.840.114 [id number] Univers 00:00:00 00:00:00 Only Unassigned, MIKE 350.1.13.10 ity of [facility] [facility] 4.2.7.2.686 Babak as [phone] [address] 2021-08-30 2021-08-30 [facility]phone [facility] 1.2.484.511 [id number] Univers 00:00:00 00:00:00 [place] ARANDA 350.1.13.10 ity of [place] [facility] 4.2.7.2.[place] [id number] [place] dical NAL [address] [place] [address] 2021-08-28 2021-08-28 Office [facility] 1.2.840.114 [id number] Univers 10:40:00 10:49:42 Visit [place] ARANDA 350.1.13.10 ity of [place] 4.2.[place].2.[place] [phone] [place] dical NAL [address] [place] [address] 2021-08-28 2021-08-28 Outpatient R SY, [facility] [id number] Univers 10:40:00 10:49:42 ROGERZAHEER ity o f [facility] 2021-08-28 2021-08-28 Outpatient R SY, [facility] [id number] Univers 10:40:00 10:40:00 ROGERZAHEER ity o f [facility] 2021-08-28 2021-08-28 Outpatient R SY, [facility] [id number] Univers 10:40:00 10:40:00 QIAJUAN perez o [facility] 2021-08-16 2021-08-16 Spanish Speaking Nanny Farnaz, Adc Lab Main [facility] 1.2.8 40.114 [id number] Univers 12:15:00 12:30:00 Visit [place] aDn 350.1.13.10 ity of [place] [facility] 4.2.7.2.[place] [phone] [facility] 353 [facility] 2021-08-16 2021-08-16 Outpatient R [facility] [id number] Univers 12:15:00 12:15:00 [place] perez o [facility] 2021-08-16 2021-08-16 Outpatient R SY, [facility] [id number] [facility] 12:15:00 12:15:00 [place] perez o [facility] 2021-08-16 2021-08-16 Orders Doctor JOHANN 1.2.840.114 [id number] Univers 00:00:00 00:00:00 Only Unassigned, MIKE 350.1.13.10 ity of [facility] 4.2.7.2.686 Babak as [phone] [address] 2021-08-16 2021-08-16 Telephone [facility] 1.2.295.684 [id number] Univers 00:00:00 00:00:00 [place] ARANDA 350.1.13.10 ity of [place] [facility] 4.2.7.2.[place] [phone] Ky dicmt NAL 059 [facility] 2021-08-02 2021-08-02 Spanish Speaking Nanny Farnaz, Adc Lab Main [facility] 1.2.8 40.114 [id number] Univers 09:00:00 09:15:00 Visit [place] Dan 350.1.13.10 ity of [place] 4.2.[place].2.[place] [phone] Ky dical NAL 353 [facility] 2021-08-02 2021-08-02 Outpatient R [facility], [facility] [id number] Univers 09:00:00 09:00:00 [place] perez o [facility] 2021-08-02 2021-08-02 Outpatient R SY, [facility] [id number] Univers 09:00:00 09:00:00 [place] perez o f [facility] 2021-08-02 2021-08-02 Orders Doctor JOHANN 1.2.840.114 [id number] Univers 00:00:00 00:00:00 Only Unassigned, MIKE 350.1.13.10 ity of [place] [facility] 4.2.7.2.686 Babak as [phone] [address] 2021-08-02 2021-08-02 Telephone [facility] 1.2.151.094 [id number] Univers 00:00:00 00:00:00 [place] ARANDA 350.1.13.10 ity of [place].2.[place] [phone] Ky dical NAL 059 [facility] 2021-07-10 2021-07-10 Refill [facility] 1.2.840.114 [id number] Univers 00:00:00 00:00:00 [place] ARANDA 350.1.13.10 ity of [place] 4[place].2.[place] [phone] Ky dical NAL 059 [facility] 2021-07-05 2021-07-05 Spanish Speaking Nanny Farnaz, Adc Lab Main [facility] 1.2.8 40.114 [id number] Univers 09:30:00 09:45:00 Visit Sy Rogerzaheer ROSI 350.1.13.10 ity of [place] [facility] 4.2.7.2.[place] [phone] Ky dical NAL 353 [facility] 2021-07-05 2021-07-05 Outpatient R [facility] [id number] Univers 09:30:00 09:30:00 [place] perez o alfonso [facility] 2021-07-05 2021-07-05 Outpatient R [facility] [id number] Univers 09:30:00 09:30:00 [place] perez o f [facility] 2021-07-05 2021-07-05 Telephone [facility] 1.2.421.578 [id number] Univers 00:00:00 00:00:00 [place] ARANDA 350.1.13.10 ity of [place] 4[place]2.[place].2.[place] [phone] Ky dical NAL 059 [facility] 2021-06-15 2021-06-15 Spanish Speaking Nanny Farnaz, Adc Lab Main [facility] 1.2.8 40.114 [id number] Univers 09:45:00 10:00:00 Visit Sy [place] ARANDA 350.1.13.10 ity of [place] [facility] 4.2.7.2.[place] [phone] Ky dical NAL 353 [facility] 2021-06-15 2021-06-15 Outpatient R SY [facility] [id number] Univers 09:45:00 09:23:22 [place] ity o f [facility] 2021-06-15 2021-06-15 Outpatient R SY [facility] [id number] Univers 09:45:00 09:23:22 [place] scotty o f [facility] 2021-06-15 2021-06-15 Orders Doctor JOHANN 1.2.840.114 [id number] Univers 00:00:00 00:00:00 Only Unassigned, MIKE 350.1.13.10 ity of [place] [facility] 4.2.7.2.686 Babak as [phone] [facility] [address] 2021-06-15 2021-06-15 Telephone YANY Dan 1.2.278.313 [id number] Univers 00:00:00 00:00:00 [place] PEDIATRIC 350.1.13.10 [place] of [place] [phone] [facility] PRIMARY [address] [facility] 2021-05-31 2021-05-31 Spanish Speaking Nanny Farnaz, Adc Lab Main [facility] 1.2.8 40.114 [id number] Univers 10:45:00 11:00:00 Visit Sy [place] ARANDA 350.1.13.10 ity of [place].2.[place] [phone] Ky dical NAL 353 [facility] 2021-05-312021-05-31 Office Sy, [facility] 1.2.840.114 [id number] Univers 10:00:00 10:33:12 Visit [place] ARANDA 350.1.13.10 ity [facility] 4.2.7.2.[place] [phone] Ky dical NAL 059 [facility] 2021-05-31 2021-05-31 Outpatient R SY, [facility] [id number] Univers 10:00:00 10:33:12 QIAJUAN ity o [facility] 2021-05-31 2021-05-31 Outpatient R SY, [facility] [id number] Univers 10:00:00 10:00:00 [place] scotty o [facility] 2021-05-31 2021-05-31 Telephone Sy, [facility] 1.2.371.807 [id number] Univers 00:00:00 00:00:00 [place] ARANDA 350.1.13.10 ity [facility] 4.2.7.2.[place] [phone] Ky dical NAL 9 [facility] 2021-05-26 2021-05-26 Emergency X JAKE, K [facility] ERT [id number] Univers 17:30:00 20:34:00 ity of [facility] 2021-05-26 2021-05-26 Emergency Jake, K [facility] 1.2.840.114 [id number] Univers 17:30:00 20:34:00 Myah ARANDA 350.1.13.10 i ty [place].7.[place] [id number] [facility] tyrone [address] 2021-05-26 2021-05-26 Outpatient R SY, [facility] [id number] Univers 10:20:00 10:20:00 [place] scotty o [facility] 2021-05-26 2021-05-26 Outpatient R SY, [facility] [id number] Univers 10:20:00 10:20:00 [place] scotty o [facility] 2021-05-10 2021-05-10 Spanish Speaking Nanny Farnaz, Adc Lab Main [facility] 1.2.8 40.114 [id number] Univers 08:15:00 08:30:00 Visit Sy, Catrinamerzaheer [place] 350.1.13.10 ity of [place] 4.2.[place].2.[place] [phone] Ky natasha NAL 353 [facility] 2021-05-10 2021-05-10 Outpatient R [facility], [facility] [id number] Univers 08:15:00 08:15:00 QIAJUAN ity o f [facility] 2021-05-10 2021-05-10 Outpatient R SY, [facility] [id number] Univers 08:15:00 08:15:00 [place] scotty o f [facility] 2021-05-10 2021-05-10 Telephone [facility] 1.2.479.052 [id number] Univers 00:00:00 00:00:00 Qiamerzaheer [place] 350.1.13.10 ity of [place] 4.2.7.2.[place] [phone] [facility] NAL 9 [facility] 2021-05-10 2021-05-10 Telephone [facility] 1.2.608.112 [id number] Univers 00:00:00 00:00:00 Rogerjun [place] 350.1.13.10 ity [place] 4[place]2.7.2.[place] [phone] [address] 2021-05-09 2021-05-09 [facility] 1.2.840.114 [id number] Univers 00:00:00 00:00:00 Qiamerjun [place] 350.1.13.10 ity of [place] 4.2.7.2.[place] [phone] [facility] NAL [address] [place] [address] 2021-05-04 2021-05-04 [facility] 1.2.840.114 [id number] Univers 00:00:00 00:00:00 Qiamerjun [place] 350.1.13.10 ity of [place] 4[place]2.7.2.[place] [id number] [address] 2021-04-28 2021-04-28 Outpatient R HIMA [facility] [id number] Univers 08:40:00 09:19:00 WAYNE ity [facility] 2021-04-28 2021-04-28 Office [facility] 1.2.840.114 [id number] Univers 08:40:00 09:19:00 Visit Wayne [place] 350.1.13.10 i ty of [place] 4.2.7.2.[place] [id number] Ky dical NAL 059 [facility] 2021-04-28 2021-04-28 Outpatient R HIMA [facility] [id number] Univers 08:40:00 09:19:00 WAYNE ity [facility] 2021-04-28 2021-04-28 Spanish Speaking Nanny Farnaz, Adc Lab Main [facility] 1.2.8 40.114 [id number] Univers 08:00:00 08:15:00 Visit [place] Dan 350.1.13.10 ity [facility] 4.2.7.2.[place] [phone] Ky dical NAL 353 [facility] 2021-04-27 2021-04-27 Spanish Speaking Nanny Farnaz, Adc Lab Main [facility] 1.2.8 40.114 [id number] Univers 10:45:00 11:00:00 Visit [place] DanTON 350.1.13.10 ity [facility] 4.2.7.2.[place] [id number] Ky dical NAL 353 [facility] 2021-04-27 2021-04-27 Outpatient R SY, [facility] [id number] Univers 10:45:00 10:45:00 [place] ity o f [facility] 2021-04-27 2021-04-27 Outpatient R SY, [facility] [id number] Univers 10:45:00 10:45:00 QIAMERJUN ity o f [facility] 2021-04-27 2021-04-27 Telephone YANY Dan 1.2.737.531 [id number] Univers 00:00:00 00:00:00 [place] PEDIATRIC 350.1.13.10 [place] [phone] [facility] PRIMARY 059 [facility] 2021-04-25 2021-04-25 Outpatient R HIMA [facility] [id number] Univers 10:20:00 10:20:00 WAYNE ity [facility] 2021-04-25 2021-04-25 Outpatient R HIMA [facility] [id number] Univers 10:20:00 10:20:00 WAYNE ity [facility] 2021-04-12 2021-04-12 Spanish Speaking Nanny Farnaz, Adc Lab Main [facility] 1.2.8 40.114 [id number] Univers 09:30:00 09:45:00 Visit [place] Dan 350.1.13.10 ity of [place] [facility] 4.2.7.2.[place] [phone] Ky dical NAL 353 [facility] 2021-04-12 2021-04-12 [facility] [id number] Univers 09:30:00 09:30:00 ROGERZAHEER ana o f [facility] 2021-04-12 2021-04-12 [facility] [id number] Univers 09:30:00 09:30:00 [place] ana o f [facility] 2021-04-12 2021-04-12 Orders Doctor JOHANN 1.2.840.114 [id number] Univers 00:00:00 00:00:00 Only Unassigned, MIKE 350.1.13.10 ity of [place] [facility] 4.2.7.2.686 Babak as [phone] [facility] [address] 2021-04-12 2021-04-12 [facility]phone [facility] 1.2.546.900 [id number] Univers 00:00:00 00:00:00 [place] ARANDA 350.1.13.10 ity of [place] [facility] 4.2.7.2.[place] [phone] Ky dical NAL 059 [facility] 2021-03-29 2021-03-29 [facility] [id number] Univers 11:20:00 11:20:58 [place] perez o [facility] 2021-03-29 2021-03-29 Office [facility] 1.2.840.114 [id number] Univers 11:20:00 11:20:58 Visit [place] ARANDA 350.1.13.10 ity of [place] [facility] 4.2.7.2.[place] [phone] Ky dical NAL 059 [facility] 2021-03-28 2021-03-28 Spanish Speaking Nanny Farnaz, Adc Lab Main [facility] 1.2.8 40.114 [id number] Univers 12:13:20 12:28:20 Visit [place] Dan ROSI 350.1.13.10 ity of [place] [facility] 4.2.7.2.[place] [id number] Ky dical [facility] 353 [facility] 2021-03-28 2021-03-28 Outpatient R [facility] [id number] Univers 12:15:00 12:15:00 [place] jimenes [facility] 2021-03-28 2021-03-28 Outpatient R [facility] [id number] Univers 12:15:00 12:15:00 [place] jimenes [facility] 2021-03-28 2021-03-28 Orders Doctor JOHANN 1.2.840.114 [id number] Univers 00:00:00 00:00:00 Only Unassigned, MIKE 350.1.13.10 ity of [place] [facility] 4.2.7.2.686 Babak as [id number] [address] 2021-03-28 2021-03-28 Telephone [facility] 1.2.697.734 [id number] Univers 00:00:00 00:00:00 [place] ARANDA 350.1.13.10 ity of [place] [facility] 4.2.7.2.[place] [phone] Ky dical NAL 059 [facility] 2021-03-28 2021-03-28 [facility] 1.2.840.114 [id number] Univers 00:00:00 00:00:00 Qiangjun [place] 350.1.13.10 ity of [place] 4.2.7.2.[place] [phone] Ky dical NAL 9 [facility] 2021-03-20 2021-03-20 Outpatient R SY [facility] [id number] Univers 13:45:00 13:45:00 [place] scotty o f [facility] 2021-03-20 2021-03-20 Outpatient R SY [facility] [id number] Univers 13:45:00 13:45:00 [place] peerz o alfonso [facility] 2021-03-20 2021-03-20 Spanish Speaking Nanny Farnaz, Adc Lab Main [facility] 1.2.8 40.114 [id number] Univers 11:58:29 12:13:29 Visit [place] DanTON 350.1.13.10 ity of [place] 4.2.7.2.[place] [id number] Ky dical NAL [address] [place] [address] 2021-03-20 2021-03-20 [facility]phone [facility] 1.2.532.137 [id number] [facility] 00:00:00 00:00:00 [place] 350.1.13.10 ity of [place] 4.2.[place].2.[place] [phone] Ky dical NAL [address] [place] [address] 2021-03-15 2021-03-15 Outpatient [facility] [id number] Univers 09:15:00 09:15:00 JOSE itjake [facility] 2021-03-15 2021-03-15 [facility] [id number] Univers 09:15:00 09:15:00 JOSE ity [facility] 2021-03-15 2021-03-15 Spanish Speaking Nanny Farnaz, Adc Lab Main [facility] 1.2.8 40.114 [id number] Univers 08:14:37 08:29:37 Visit Jose Villaoleg ARANDA 350.1.13. 10 ity of [place] [phone] [place] [address] [place] [address] 2021-03-15 2021-03-15 Orders Doctor JOHANN [id number] [id number] Univers 00:00:00 00:00:00 Only Unassigned, MIKE 350.1.13.10 ity of [place] [facility] 4.2.7.2.686 Babak as [phone] [facility] [address] 2021-03-15 2021-03-15 [facility] [id number] Univers 00:00:00 00:00:00 [place] ARANDA 350.1.13.10 it[place] of [place] [facility] [phone] [place] [address] [facility] 2021-03-07 2021-03-07 Transition ALESIA Gamez 1.2.840.114 [id number] Univers 00:00:00 00:00:00 of Care Georgie SAMANIEGO 350.1.13.10 it y of [place] [phone] [facility] [address] 2021-03-01 2021-03-06 Inpatient X FABIOLA [facility] BERENICE [id number] Univers 11:31:00 15:17:00 CALEB perez [facility] 2021-03-01 2021-03-06 [facility] Jamie Deng [facility] 1.2.840.1 [id number] Univers 11:31:00 15:17:00 Encounter Caleb Rodrigues 350.1.13.10 ity [facility] [place] [phone] [facility] [address] 2021-03-01 2021-03-01 Outpatient X FABIOLA [facility] BER[facility]ICE [id number] Univers 11:31:00 11:31:00 CALEB perez [facility] 2021-02-27 2021-02-27 Outpatient Joan DAN [facility] [id number] Univers 11:20:00 11:44:55 [place] perez o f [facility] 2021-02-27 2021-02-27 Outpatient Joan DAN [facility] [id number] Univers 11:20:00 11:44:55 [place] perez o alfonso [facility] 2021-02-27 2021-02-27 Outpatient R SY, [facility] [id number] Univers 11:20:00 11:44:55 [place] perez o [facility] 2021-02-27 2021-02-27 Outpatient R SY, [facility] [id number] Univers 11:20:00 11:44:55 [place] perez o [facility] 2021-02-27 2021-02-27 Office [facility] 1.2.840.114 [id number] Univers 10:54:32 11:44:55 Visit Catrinajuan ARANDA 350.1.13.10 ity of [place] [phone] [place] dical NAL 059 [facility] 2021-02-27 2021-02-27 Outpatient R SY, [facility] [id number] Univers 10:30:00 10:30:00 [place] jimenes [facility] 2021-02-27 2021-02-27 Outpatient R SY, [facility] [id number] Univers 10:30:00 10:30:00 [place] jimenes [facility] 2021-02-27 2021-02-27 Spanish Speaking Nanny Farnaz, Andre Lab Main [facility] 1.2.8 40.114 [id number] Univers 09:52:58 10:07:58 Visit SyJamaica 350.1.13.10 ity of [place] [phone] [place] dical NAL 353 [facility] 2021-02-27 2021-02-27 Orders Doctor JOHANN 1.2.840.114 [id number] Univers 00:00:00 00:00:00 Only Unassigned, MIKE 350.1.13.10 ity of [place] [facility] 4.2.7.2.686 Babak as [phone] [address] 2021-02-27 2021-02-27 Telephone [facility] 1.2.245.907 [id number] Univers 00:00:00 00:00:00 Qiangjun [place] 350.1.13.10 ity of [place] [phone] [place] NAL 059 [facility] 2021-02-24 2021-02-24 Outpatient R SY, [facility] [id number] Univers 10:45:00 10:45:00 [place] ity o f [facility] 2021-02-24 2021-02-24 Outpatient R SY, [facility] [id number] Univers 10:45:00 10:45:00 QIAJUAN ity o f [facility] 2021-02-24 2021-02-24 Spanish Speaking Nanny Farnaz, Adc Lab Main [facility] 1.2.8 40.114 [id number] Univers 09:17:46 09:32:46 Visit [place] Dan 350.1.13.10 ity of [place] [phone] [place] natasha NAL 353 [facility] 2021-02-24 2021-02-24 Telephone [facility] 1.2.202.620 [id number] Univers 00:00:00 00:00:00 [place] 350.1.13.10 ity of [place] [phone] [place] dical NAL [address] [place] [address] 2021-02-24 2021-02-24 [facility] 1.2.709.463 [id number] Univers 00:00:00 00:00:00 [place] 350.1.13.10 ity of [place] [phone] [place] dical NAL 9 [facility] 2021-02-24 2021-02-24 Telephone [facility] 1.2.423.742 [id number] Univers 00:00:00 00:00:00 [place] 350.1.13.10 ity of [place] [phone] [place] dical NAL [address] [place] [address] 2021-02-15 2021-02-15 Spanish Speaking Nanny Farnaz, Adc Lab Main [facility] 1.2.8 40.114 [id number] Univers 09:47:39 10:02:39 Visit Sy [place] ARANDA 350.1.13.10 ity [place] [facility] 4.2.7.2.[place] [phone] [place] dical NAL 353 [facility] 2021-02-15 2021-02-15 Outpatient R [facility] [id number] Univers 09:45:00 09:45:00 [place] scotty o f [facility] 2021-02-15 2021-02-15 Outpatient R [facility], [facility] [id number] Univers 09:45:00 09:45:00 [place] perez o f [facility] 2021-02-15 2021-02-15 Orders Doctor JOHANN 1.2.840.114 [id number] Univers 00:00:00 00:00:00 Only Unassigned, MIKE 350.1.13.10 ity of [place] [facility] 4.2.7.2.686 Babak as [phone] [facility] [address] [place] 2021-02-15 2021-02-15 [facility]phone [facility] [id number] [id number] Univers 00:00:00 00:00:00 [place] ARANDA 350.1.13.10 ity of [place] [facility] [facility] 4.2.7.2.[place] [phone] [facility]59 [facility] 2021-02-10 2021-02-10 Transition ALESIA Gamez 1.2.840.114 [id number] Univers 00:00:00 00:00:00 of Care Georgie MARIAY 350.1.13.10 it y of [place] 4.2.7.2.[place] [phone] [facility] [address] 2021-02-04 2021-02-09 Inpatient X MIGUEL [facility] BERENICE [id number] Univers 20:57:00 13:26:00 JENNIFER ity of [facility] 2021-02-04 2021-02-09 [facility] Jamie Deng [facility] 1.2.840.1 14 [id number] Univers 20:57:00 13:26:00 Encounter Wilber Flowers 350.1.13.10 ity of [place] 4.2.7.2.686 [facility] [phone] [facility] [address] [place] 2021-01-02 2021-01-02 Spanish Speaking Nanny Farnaz, Andre Lab Main [facility] 1.2.8 40.114 [id number] Univers 11:35:12 11:50:12 Visit [place] Dan 350.1.13.10 ity of [place] 4.[place] [phone] [place] dical nal 353 [facility] 2021-01-02 2021-01-02 Outpatient R [facility] [id number] Univers 11:45:00 11:45:00 CATRINAJUAN ana o [facility] 2021-01-02 2021-01-02 [facility] [id number] Univers 11:45:00 11:45:00 [place] perez o [facility] 2021-01-02 2021-01-02 Orders Doctor JOHANN 1.2.840.114 [id number] Univers 00:00:00 00:00:00 Only Unassigned, MIKE 350.1.13.10 ity of [place] [facility] 4.2.7.2.686 Babak as [phone] [facility] [address] [place] 2021-01-02 2021-01-02 [facility]phone [facility] 1.2.439.480 [id number] Univers 00:00:00 00:00:00 [place] Aranda 350.1.13.10 ity of [place] [phone] [place] dical nal 059 [facility] 2021-01-02 2021-01-02 [facility] 1.2.840.114 [id number] Univers 00:00:00 00:00:00 [place] Aranda 350.1.13.10 ity of [place] [phone] [place] dical nal 059 [facility] 2020-12-07 2020-12-07 Spanish Speaking Nanny Farnaz, Adc Lab Main [facility] 1.2.8 40.114 [id number] Univers 08:05:37 08:20:37 Visit [place] Dan 350.1.13.10 ity of [place] [phone] [place] dical nal 353 [facility] 2020-12-07 2020-12-07 Outpatient R SY, [facility] [id number] Univers 08:00:00 08:00:00 [place] ity o [facility] 2020-12-07 2020-12-07 Outpatient R SY, [facility] [id number] Univers 08:00:00 08:00:00 [place] perez o [facility] 2020-12-07 2020-12-07 Telephone Sy, [facility] 1.2.338.261 [id number] Univers 00:00:00 00:00:00 [place] 350.1.13.10 ity [facility] 4.2.7.2.[place] [phone] [place] dical nal 059 [facility] 2020-11-23 2020-11-23 Outpatient R SY, [facility] [id number] Univers 13:37:45 23:59:00 [place] scotty o [facility] 2020-11-23 2020-11-23 Outpatient R SY, [facility] [id number] Univers 13:37:45 23:59:00 [place] scotty o [facility] 2020-11-14 2020-11-14 Outpatient R SY, [facility] [id number] Univers 13:40:00 13:40:00 [place] scotty o [facility] 2020-10-12 2020-10-12 Outpatient R SY, [facility] [id number] Univers 08:00:00 08:00:00 [place] scotty o [facility] 2020-09-27 2020-09-27 Outpatient R SY, [facility] [id number] Univers 13:00:00 13:00:00 [place] scotty o [facility] 2020-09-22 2020-09-22 Outpatient R SY, [facility] [id number] Univers 09:30:00 09:30:00 [place] scotty o alfonso [facility] 2020-09-07 2020-09-07 Outpatient R SY, [facility] [id number] Univers 08:45:00 08:45:00 [place] scotty o f [facility] 2020-08-19 2020-08-19 Outpatient R SY, [facility] [id number] Univers 08:45:00 08:45:00 [place] scotty o alfonso [facility] 2020-08-15 2020-08-15 Outpatient R SY, [facility] [id number] Univers 10:45:00 10:45:00 [place] perez o [facility] 2020-08-08 2020-08-08 Outpatient R SY, [facility] [id number] Univers 11:45:00 11:45:00 [place] jimenes [facility] 2020-08-08 2020-08-08 Spanish Speaking Nanny Farnaz, [facility] 1.2.840.114 [id number] 11:14:44 11:29:44 Visit Lab Main Rosi 350.1.13.10 [place] 4.2.7.2.686 Professio [phone] [facility] 353 [facility] 2020-08-08 2020-08-08 Orders Doctor JOHANN 1.2.840.114 [id number] 00:00:00 00:00:00 Only Unassigned, MIKE 350.1.13.10 [place] [facility] 4.2.7.2.686 [id number] 009 2020-08-08 2020-08-08 Telephone [facility] 1.2.944.243 [id number] 00:00:00 00:00:00 [place] Aranda 350.1.13.10 [place] 4.2.7.2.686 Professio [phone] nal 059 [facility] 2020-07-25 2020-07-25 Telephone [facility] 1.2.059.666 [id number] 00:00:00 00:00:00 [place] Aranda 350.1.13.10 [place] 4.2.7.2.686 Professio [phone] [facility] 059 [facility] 2020-07-20 2020-07-20 Outpatient R SY, [facility] [id number] Univers 11:45:00 11:45:00 ROGERZAHEER ana jimenes [facility] 2020-07-20 2020-07-20 Spanish Speaking Nanny Farnaz [facility] 1.2.840.114 [id number] 10:37:03 10:52:03 Visit Lab Main [place] 350.1.13.10 [place] 4.2.7.2.686 Professio [phone] [address] 2020-07-20 2020-07-20 Orders Doctor JOHANN 1.2.840.114 [id number] 00:00:00 00:00:00 Only Unassigned, MIKE 350.1.13.10 [place] [facility] 4.2.7.2.686 [phone] [facility] 2020-07-20 2020-07-20 Telephone [facility] 1.2.749.272 [id number] 00:00:00 00:00:00 [place] 350.1.13.10 [place] 4.2.7.2.686 Professio [phone] [address] 2020-07-13 2020-07-13 [facility] [id number] Univers 10:15:00 10:15:00 [place] jimenes [facility] 2020-07-13 2020-07-13 Spanish Speaking Nanny Farnaz [facility] 1.2.840.114 [id number] 09:23:20 09:38:20 Visit Lab Main [place] 350.1.13.10 [place] 4.2.7.2.686 Professio [phone] [address] 2020-07-13 2020-07-13 Telephone [facility] 1.2.331.433 [id number] 00:00:00 00:00:00 [place] 350.1.13.10 [place] 4.2.7.2.686 Professio [phone] [address] 2020-06-19 2020-06-19 Telephone [facility] 1.2.931.480 [id number] 00:00:00 00:00:00 Qiamerjun [place] 350.1.13.10 [place] 4.2.7.2.686 Professio [phone] [facility] [address] [place] [address] 2020-06-17 2020-06-17 Spanish Speaking Nanny Farnaz, [facility] 1.2.840.114 [id number] 09:22:55 09:37:55 Visit Lab Main [place] 350.1.13.10 [place] 4.2.7.2.686 Professio [phone] [facility] 353 [facility] 2020-06-17 2020-06-17 [facility] [id number] [facility] 09:30:00 09:30:00 QIANGJUN ity o [facility] 2020-06-08 2020-06-08 Telephone [facility] 1.2.609.073 [id number] 00:00:00 00:00:00 Qiangjun [place] 350.1.13.10 [place] 4.2.7.2.686 Professio [phone] [address] 2020-06-07 2020-06-07 Spanish Speaking Nanny Farnaz, [facility] 1.2.840.114 [id number] 08:57:47 09:12:47 Visit Lab Main [place] 350.1.13.10 [place] 4.2.7.2.686 Professio [phone] [address] 2020-06-07 2020-06-07 Out[facility] [id number] Univers 09:00:00 09:00:00 QIANGJUN ity o f [facility] 2020-05-23 2020-05-23 [facility] [id number] Univers 09:15:00 09:15:00 QIANGJUN ity o f [facility] 2020-05-16 2020-05-16 [facility] [id number] [facility] 11:30:00 11:30:00 QIANGJUN ity o f [facility] 2020-05-16 2020-05-16 Spanish Speaking Nanny Farnaz, [facility] 1.2.840.114 [id number] 11:09:17 11:24:17 Visit Lab Main [place] 350.1.13.10 [place] 4.2.7.2.686 Professio [phone] [facility] 353 [facility] 2020-05-16 2020-05-16 Orders Doctor JOHANN 1.2.840.114 [id number] 00:00:00 00:00:00 Only Unassigned, MIKE 350.1.13.10 [place] [facility] 4.2.7.2.686 [id number] 009 2020-05-16 2020-05-16 Telephone [facility] 1.2.654.444 [id number] 00:00:00 00:00:00 [place] 350.1.13.10 [place] 4.2.7.2.686 Professio [phone] [address] 2020-05-11 2020-05-11 Spanish Speaking Nanny Farnaz [facility] 1.2.840.114 [id number] 09:25:07 09:40:07 Visit Lab Main [place] 350.1.13.10 [place] 4.2.7.2.686 Professio [phone] [address] 2020-05-11 2020-05-11 Outpatient R JEREMIAS, [facility] [id number] Univers 09:30:00 09:30:00 SENDIL itjake of [facility] 2020-05-11 2020-05-11 Telephone [facility] 1.2.348.147 [id number] 00:00:00 00:00:00 [place] Aranda 350.1.13.10 [place] 4.2.7.2.686 Professio [phone] [address] 2020-05-11 2020-05-11 Telephone [facility] 1.2.210.722 [id number] 00:00:00 00:00:00 [place] 350.1.13.10 [place] 4.2.7.2.686 Professio [phone] [address] 2020-05-04 2020-05-04 Telephone [facility] 1.2.291.104 [id number] 00:00:00 00:00:00 [place] 350.1.13.10 [place] 4.2.7.2.686 Professio [phone] nal 059 [facility] 2020-05-03 2020-05-03 Outpatient [facility] [id number] 007 [facility] 11:30:00 11:30:00 [place] perez o f [facility] 2020-05-03 2020-05-03 Spanish Speaking Nanny Farnaz [facility] 1.2.840.114 [id number] 10:05:00 10:20:00 Visit Lab Main [place] 350.1.13.10 [place] 4.2.7.2.686 Professio [phone] [facility] 353 [facility] 2020-05-03 2020-05-03 Orders Doctor JOHANN 1.2.840.114 [id number] 00:00:00 00:00:00 Only Unassigned, MIKE 350.1.13.10 [place] [facility] 4.2.7.2.686 [phone] [facility] 2020-04-27 2020-04-27 Spanish Speaking Nanny Farnaz [facility] 1.2.840.114 [id number] 08:24:03 08:39:03 Visit Lab Main [place] 350.1.13.10 [place] 4.2.7.2.686 Professio [phone] [address] 2020-04-27 2020-04-27 Outpatient R [facility] [id number] Univers 08:30:00 08:30:00 [place] scottjake o [facility] 2020-04-27 2020-04-27 Telephone [facility] 1.2.762.061 [id number] 00:00:00 00:00:00 [place] 350.1.13.10 [place] 4.2.7.2.686 Professio [phone] [address] 2020-04-20 2020-04-20 [facility]ill [facility] 1.2.840.114 [id number] 00:00:00 00:00:00 Qiajuan [place] 350.1.13.10 [place] 4.2.7.2.686 Professio [phone] [address] 2020-04-01 2020-04-01 Outpatient R IZQUIERDO, [facility] [id number] Univers 10:15:00 10:15:00 NICK perez [facility] 2020-03-29 2020-03-29 Office Sy, [facility] 1.2.840.114 [id number] 14:32:40 15:25:41 Visit [place] Aranda 350.1.13.10 Bhavya 4.2.7.2.686 Lonnie [phone] nal 059 [facility] 2020-03-29 2020-03-29 Outpatient R SY, [facility] [id number] Univers 14:40:00 14:40:00 [place] perez o [facility] 2020-03-22 2020-03-22 Outpatient R SY, [facility] [id number] Univers 15:30:00 15:30:00 [place] perez o [facility] 2020-03-15 2020-03-15 Outpatient R SY, [facility] [id number] Univers 11:15:00 11:15:00 [place] jimenes [facility] 2020-02-24 2020-02-24 Outpatient R SY, [facility] [id number] Univers 08:40:00 08:40:00 [place] perez o [facility] 2020-02-17 2020-02-17 Outpatient R SY, [facility] [id number] Univers 09:15:00 09:15:00 [place] perez o [facility] 2020-01-11 2020-01-11 Outpatient R SY, [facility] [id number] Univers 12:45:00 12:45:00 [place] perez o [facility] 2019-12-17 2019-12-17 Outpatient R SY, [facility] [id number] Univers 11:00:00 11:00:00 [place] perez o [facility] 2019-11-26 2019-11-26 Outpatient R SY, [facility] [id number] Univers 12:45:00 12:45:00 [place] perez o [facility] 2019-10-30 2019-10-30 Outpatient R RADIOLOGY [facility] [id number] Univers 00:00:00 00:00:00 ity [facility] 2019-10-20 2019-10-20 Outpatient R ALICJA MCDERMOTT [facility] [id number] Univers 09:30:00 09:30:00 ity [facility] 2019-09-30 2019-09-30 Outpatient R SY, [facility] [id number] Univers 08:30:00 08:30:00 [place] perez o alfonso [facility] 2019-09-08 2019-09-08 Outpatient R SY, [facility] [id number] Univers 15:20:00 15:20:00 [place] perez o alfonso [facility] 2019-09-03 2019-09-03 Outpatient R SY, [facility] [id number] Univers 09:00:00 09:00:00 [place] perez o [facility] 2019-07-24 2019-07-24 Outpatient R SY, [facility] [id number] Univers 11:45:00 11:45:00 [place] jimenes [facility] 2019-06-22 2019-06-22 Outpatient R SY, [facility] [id number] Univers 13:30:00 13:30:00 [place] jimenes [facility] Results Test Description Test Time Test [...] indications. Lab Interpretation (test code Abnormal = 65212-0) [facility] / [id number] 15:08:40 Test Item Value Reference Range Interpretation [...] tions. Lab Interpretation (test Abnormal code = 30092-6) [facility] / [id number] 15:08:40 Test Item Value Reference Range Interpretation Comments PROTIME PATIENT (test 24.8 See_Comment H [Auto mated message] code = 5964-2) The system Netsket generated this result transmitted ref erence range: 12.0 - 1 4.7 Seconds. The reference range was not used to int erpret this result as normal/abnormal . INR (test code = 6301-6) 2.3 Nor mal INR <1.1; Warfarin Therap eutic range 2.0 to 3. 0 or 2.5 to 3.5, dep ending upon the indica tions. Lab Interpretation (test Abnormal code = 91891-9) [facility] / [id number] 18:32:10 Test Item Value Reference Range Interpretation Comments PROTIME PATIENT (test 24.4 See_Comment H [Auto mated message] code = 5964-2) The system Netsket generated this result transmitted ref erence range: 12.0 - 1 4.7 Seconds. The reference range was not used to int erpret this result as normal/abnormal . INR (test code = 6301-6) 2.2 Nor mal INR <1.1; Warfarin Therap eutic range 2.0 to 3. 0 or 2.5 to 3.5, dep ending upon the indica tions. Lab Interpretation (test Abnormal code = 90005-2) [facility] ([facility]2022-06-11 22:45:29 Test Item Value Reference Range Interpretation Comments Height (test code = 63 in 1689400370) Weight (test code = 102 lbs 6142356244) Systolic BP (test 123 mmHg code = 7275201705) Diastolic BP (test 64 mmHg code = 5514291430) Heart Rate (test code 61 bpm = 0840383068) LVOT peak amrita (test 114.0 cm/s code = 6724633072) LVOT mn grad (test 3.0 mmHg code = 1703854919) Aortic valve mean 209.0 cm/s velocity (test code = 8752560985) Ao peak amrita (test 333.0 cm/s code = 4526449465) Ao VTI (test code = 71.7 cm 0323394610) AV LVOT peak gradient 5.2 mmHg (test code = 2286549488) LVOT peak VTI (test 29.0 cm code = 9554490074) AV Doppler amrita index 0.34 ratio VTI (test code = 3984665956) LV V1 mean (test code 82.60 cm/s = 0610212056) Ao max PG (test code 44.40 mm[Hg] = 8539100360) AV peak gradient 44.4 mmHg (test code = 2376479557) AV mean gradient 21.0 mmHg (test code = 9952878828) Radiology Study observation (narrative) (test code = 29915-9) ROBERT (test code = ROBERT) ?Aortic?Valve: Mechanical [...] captured. The probe was inserted by the j2ee software engineer. Probe in 0930. Probe out 0940. Moderate sedation was given. 4% Lidocaine was used for local oropharyngeal anesthesia. 1 mg of midazolam and 50 mcg of Fentanyl were administered during the study. There were no complications during the procedure. Based on abnormal findings of 2D echocardiogram, 3D was performed on an acquisition scanner for further assessment of the aortic valve. MR RN [facility] MET[facility] (NA, K, CL, CO2, GLUCOSE, BUN, CREATININE, CA)2022-06-11 09:30:25 Test Item Value Reference Range Interpretation Comments NA (test code = 137 mmol/L 135-145 7201482315) K (test code = 4.3 mmol/L 3.5-5.0 4942453170) CL (test code = 104 mmol/L 98-108 6668937560) CO2 TOTAL (test code = 30 mmol/L 23-31 8481514558) AGAP (test code = 3 2-16 3355811069) BUN (test code = 19 mg/dL 7-23 3567853155) GLUCOSE (test code = 102 mg/dL 70-110 2968160847) CREATININE (test code = 0.93 mg/dL 0.50-1.04 9470267701) CALCIUM (test code = 8.5 mg/dL 8.6-10.6 L 0539396466) eGFR (test code = 59.8 mL/min/1.73m2 9290871979) ROBERT (test code = ROBERT) Association of [...] tests). Lab Interpretation Abnormal (test code = 27212-1) [facility]2023-02-27 09:30:25 Test Item Value Reference Range Interpretation Comments MAGNESIUM (test code = 6831769919) 2.1 mg/dL 1.7-2.4 Lab Interpretation (test code = Normal 13014-4) [facility] / [id number] 09:18:08 Test Item Value Reference Range Interpretation Comments PROTIME PATIENT (test 19.8 See_Comment H [Auto mated message] code = 5964-2) The system App Dream[employer] generated this result transmitted ref erence range: 10.1 - 1 2.6 Seconds. The reference range was not used to int erpret this result as normal/abnormal . INR (test code = 6301-6) 1.8 Nor mal INR <1.1; Warfarin Therap eutic range 2.0 to 3. 0 or 2.5 to 3.5, dep ending upon the indica tions. Lab Interpretation (test Abnormal code = 29158-9) [facility] 09:18:08 Test Item Value Reference Range Interpretation Comments APTT Patient (test code 89 See_Comment H [Au tomated message] = 4413-2) The system [employer] generated this result transmitted ref erence range: 26 - 36 Seconds. The reference range was not used to int erpret this result as normal/abnormal . Lab Interpretation (test Abnormal code = 73202-2) [facility] 08:57:55 Test Item Value Reference Range Interpretation Comments MAGNESIUM (test code = 6415058190) 1.8 mg/dL 1.7-2.4 Lab Interpretation (test code = Normal 47496-8) [facility] METABOLIC PANEL (NA, K, CL, CO2, GLUCOSE, BUN, CREATININE, CA)2022-06-10 08:57:55 Test Item Value Reference Range Interpretation Comments NA (test code = 137 mmol/L 135-145 5314835736) K (test code = 4.0 mmol/L 3.5-5.0 2541220633) CL (test code = 100 mmol/L 98-108 9378234891) CO2 TOTAL (test code = 32 mmol/L 23-31 H 0640981989) AGAP (test code = 5 2-16 6364531337) BUN (test code = 24 mg/dL 7-23 H 5531901284) GLUCOSE (test code = 116 mg/dL 70-110 H 8992422038) CREATININE (test code = 1.00 mg/dL 0.50-1.04 9301685371) CALCIUM (test code = 9.1 mg/dL 8.6-10.6 8935952846) eGFR (test code = 55.0 mL/min/1.73m2 6475160151) ROBERT (test code = ROBERT) Association of [...] tests). Lab Interpretation Abnormal (test code = 47260-0) [facility] / [id number] 08:46:38 Test Item Value Reference Range Interpretation Comments PROTIME PATIENT (test 17.4 See_Comment H [Auto mated message] code = 5964-2) The system [employer] generated this result transmitted ref erence range: 10.1 - 1 2.6 Seconds. The reference range was not used to int erpret this result as normal/abnormal . INR (test code = 6301-6) 1.6 Nor mal INR <1.1; Warfarin Therap eutic range 2.0 to 3. 0 or 2.5 to 3.5, dep ending upon the indica tions. Lab Interpretation (test Abnormal code = 87686-8) [facility] 08:46:38 Test Item Value Reference Range Interpretation Comments APTT Patient (test code 85 See_Comment H [Au tomated message] = 3173-2) The system [employer] generated this result transmitted ref erence range: 26 - 36 Seconds. The reference range was not used to int erpret this result as normal/abnormal . Lab Interpretation (test Abnormal code = 06172-2) [facility] WITH [id number] 08:39:15 Test Item Value Reference Range Interpretation [...] (test code = 58.1 fL 39.0-49.9 H 66507-6) RDW-CV (test code = 16.1 % 12.0-15.5 H 788-0) PLT (test code = 197 See_Comment [Automated 777-3) message] The sy stem which generated this result transmitted reference range : 166 - 358 10*3/ ?L. The reference r tali was not used to interpret this result as normal/abnormal . MPV (test code = 10.2 fL 9.5-12.9 15395-3) NRBC/100 WBC (test 0.0 See_Comment [Automat ed code = 2217749635) message] The system which generated this result transmitted reference range : 0.0 - 10.0 /100 WBCs. The refer ence range was not u sed to interpret th is result as normal/abnormal . NRBC x10^3 (test code See_Comment [Auto mated = 8623259870) message] The s ystem which generated this result transmitted reference range : 10*3/?L. The reference range was not used to interpret this result as normal/abnormal . GRAN MAT (NEUT) % 58.4 % (test code = 770-8) IMM GRAN % (test code 0.20 % = 0487740326) LYMPH % (test code = 24.2 % 736-9) MONO % (test code = 10.9 % 5905-5) EOS % (test code = 5.5 % 713-8) BASO % (test code = 0.8 % 706-2) GRAN MAT x10^3(ANC) 2.77 10*3/uL 1.88-7.09 (test code = 5276762834) IMM GRAN x10^3 (test 0.00-0.06 code = 2429490233) LYMPH x10^3 (test code 1.15 10*3/uL 1.32-3.29 L = 731-0) MONO x10^3 (test code 0.52 10*3/uL 0.33-0.92 = 742-7) EOS x10^3 (test code = 0.26 10*3/uL 0.03-0.39 711-2) BASO x10^3 (test code 0.04 10*3/uL 0.01-0.07 = 704-7) Lab Interpretation Abnormal (test code = 06572-6) [facility]2023-[facility]-25 10:39:27 Test Item Value Reference Range Interpretation Comments MAGNESIUM (test code = 5389736541) 1.6 mg/dL 1.7-2.4 L Lab Interpretation (test code = Abnormal 46950-2) [facility] METABOLIC PANEL (NA, K, CL, CO2, GLUCOSE, BUN, CREATININE, CA)2022-06-09 10:39:27 Test Item Value Reference Range Interpretation Comments NA (test code = 139 mmol/L 135-145 1162262708) K (test code = 4.1 mmol/L 3.5-5.0 4655080938) CL (test code = 96 mmol/L 98-108 L 9966599064) CO2 TOTAL (test code = 36 mmol/L 23-31 H 1288379174) AGAP (test code = 7 2-16 8400554676) BUN (test code = 27 mg/dL 7-23 H 9889974469) GLUCOSE (test code = 116 mg/dL 70-110 H 9106942287) CREATININE (test code = 1.21 mg/dL 0.50-1.04 H 2663893142) CALCIUM (test code = 9.3 mg/dL 8.6-10.6 7414901039) eGFR (test code = 44.1 mL/min/1.73m2 9052969440) ROBERT (test code = ROBERT) Association of [...] tests). Lab Interpretation Abnormal (test code = 13757-3) [facility] / [id number] 10:26:27 Test Item Value Reference Range Interpretation Comments PROTIME PATIENT (test 18.7 See_Comment H [Auto mated message] code = 5964-2) The system App [employer] generated this result transmitted ref erence range: 10.1 - 1 2.6 Seconds. The reference range was not used to int erpret this result as normal/abnormal . INR (test code = 6301-6) 1.7 Nor mal INR <1.1; Warfarin Therap eutic range 2.0 to 3. 0 or 2.5 to 3.5, dep ending upon the indica tions. Lab Interpretation (test Abnormal code = 10159-4) [facility] WITH [id number] 10:16:07 Test Item Value Reference Range Interpretation [...] (test code = 58.8 fL 39.0-49.9 H 26004-3) RDW-CV (test code = 16.3 % 12.0-15.5 H 788-0) PLT (test code = 244 See_Comment [Automated 777-3) message] The sy stem which generated this result transmitted reference range : 166 - 358 10*3/ ?L. The reference r tali was not used to interpret this result as normal/abnormal . MPV (test code = 10.1 fL 9.5-12.9 64445-7) NRBC/100 WBC (test 0.0 See_Comment [Automat ed code = 3435429761) message] The system which generated this result transmitted reference range : 0.0 - 10.0 /100 WBCs. The refer ence range was not u sed to interpret th is result as normal/abnormal . NRBC x10^3 (test code See_Comment [Auto mated = 1443013412) message] The s [employer] which generated this result transmitted reference range : 10*3/?L. The reference range was not used to interpret this result as normal/abnormal . GRAN MAT (NEUT) % 75.8 % (test code = 770-8) IMM GRAN % (test code 0.30 % = 1696661731) LYMPH % (test code = 12.5 % 736-9) MONO % (test code = 8.5 % 5905-5) EOS % (test code = 2.0 % 713-8) BASO % (test code = 0.9 % 706-2) GRAN MAT x10^3(ANC) 5.80 10*3/uL 1.88-7.09 (test code = 5629605423) IMM GRAN x10^3 (test 0.00-0.06 code = 0058721658) LYMPH x10^3 (test code 0.96 10*3/uL 1.32-3.29 L = 731-0) MONO x10^3 (test code 0.65 10*3/uL 0.33-0.92 = 742-7) EOS x10^3 (test code = 0.15 10*3/uL 0.03-0.39 711-2) BASO x10^3 (test code 0.07 10*3/uL 0.01-0.07 = 704-7) Lab Interpretation Abnormal (test code = 02639-3) [facility]ansthor[facility] (TTE)2022-06-07 21:12:16 Test Item Value Reference Range Interpretation Comments Height (test code = 63 in 0562704298) Weight (test code = 101 lbs 3257569381) Systolic BP (test code 127 mmHg = 1329930136) Diastolic BP (test code 43 mmHg = 9097307560) Heart Rate (test code = 50 bpm 9170033670) BSA (test code = 1.45 m2 0956923876) LVOT diameter (test 1.62 cm code = 8248801045) LVOT area (test code = 2.05 cm2 5622045229) Ao root diam (test code 2.34 cm = 2522999031) Aortic root (test code 2.34 cm = 6849011861) Ao root annulus (test 2.34 cm code = 7657086273) LA size (test code = 4.9 cm 9563820380) TR Peak Amrita (test code 209.0 cm/s = 6507228085) Triscuspid Valve 17.5 mmHg Regurgitation Peak Gradient (test code = 3583240014) PV REGURGITATION PEAK 8.9 mmHg GRADIENT (test code = 0070111397) PI dec slope (test code 81.30 cm/s2 = 7234306001) E wave decelartion time 0.26 s (test code = 0862301683) MV Peak A Amrita (test 58.0 cm/s code = 1701363658) MV Peak E Amrita (test 116.0 cm/s code = 9318200867) E/A ratio (test code = 2.00 ratio 4172117923) MR max PG (test code = 125.90 mm[Hg] 8216711726) MR max amrita (test code = 561.00 cm/s 2425432819) Mr max amrita (test code = 561.0 m/s 9103975920) MV Prop V (test code = 33.60 cm/s 1329532284) LAV(MOD-sp4) (test code 50.40 mL = 3406670287) MV E/e' septal (test 5.1 cm/s code = 8497774809) Tapse (test code = 1.37 cm 9565286058) LVOT stroke volume 42.60 cm3 (test code = 8838211172) LVOT peak amrita (test 96.3 cm/s code = 6931600698) LVOT mn grad (test code 1.6 mmHg = 7385045004) AV LVOT peak gradient 3.7 mmHg (test code = 3567123480) LVOT peak VTI (test 20.8 cm code = 4803049881) LV V1 mean (test code = 59.50 cm/s 0688857011) LA Volume Index (BP) 39.6 mL/m2 (test code = 8248579113) LA volume (BP) (test 57.2 mL code = 3948498117) LAV(MOD-sp2) (test code 59.90 mL = 2916732372) AV regurgitation 482.7 ms pressure 1/2 time (test code = 8839082181) AI dec slope (test code 212.30 cm/s2 = 6539686003) AI max amrita (test code = 349.90 cm/s 7050387064) AI max PG (test code = 49.00 mm[Hg] 7143767003) LVIDD (test code = 3.90 cm 8319713570) Left Ventricular End 66.7 mL Diastolic Volume by Teichholz Method (test code = 3740567) EF(Teich) (test code = 67.60 % 9407021321) FS (test code = 37 % 2987280627) EF - 2D (test code = 67.60 % 55010860) IVS (test code = 1.22 cm 0758003980) Interventricular Septum 1.22 cm Diastolic Thickness by 2D (test code = 2864870) LVPWD (test code = 1.12 cm 1814402771) PW (test code = 1.12 cm 0.6-1.2 0037542809) LVIDS (test code = 2.47 cm 2894053251) Left Ventricular End 21.6 mL Systolic Volume by Teichholz Method (test code = 0110383) Aortic valve mean 210.4 cm/s velocity (test code = 4864271898) Ao peak amrita (test code 307.4 cm/s = 2322261261) Ao VTI (test code = 68.2 cm 7806920331) AV area by cont VTI 0.6 cm2 (test code = 1824138968) AV area peak amrita (test 0.6 cm2 code = 5916145567) Ao max PG (test code = 37.80 mm[Hg] 9894725555) AV peak gradient (test 37.8 mmHg code = 6408444026) AV valve area (test 0.63 cm2 code = 2162965295) AV mean gradient (test 19.8 mmHg code = 6013861616) Radiology Study observation (narrative) (test code = 41908-3) ROBERT (test code = ROBERT) ?Left?Ventricle: Left [...] flow Doppler and spectral Doppler. [facility] [id number] 05:06:36 Test Item Value Reference Range Interpretation [...] not appl icable for dialysis patien ts Blackjack Supervisor ID - PIDYLAN MHFNPMEUHV6566-40-41 05:06:35 Test Item Value Reference Range Interpretation Comments MAGNESIUM (BEAKER) 1.7 mg/dL 1.6-2.6 Specimen slightly (test code = 627) hemolyzed Blackjack Supervisor ID - ARMAND LPROTHROMBIN TIME/[id number] 04:57:12 Test Item Value Reference Range Interpretation [...] mechanical heart valves.CBC W/PLT COUNT & AUTO [id number] 04:49:51 Test Item Value Reference Range Interpretation [...] 0.00-1.00 PERCENT (BEAKER) (test code = 2801) [id number] 10:05:40 Test Item Value Reference Range Interpretation Comments PARTIAL THROMBOPLASTIN TIME 49.3 seconds 22.5-36.0 H (BEAKER) (test code = 760) [id number] 07:34:27 Test Item Value Reference Range Interpretation Comments PARTIAL THROMBOPLASTIN TIME > seconds 22.5-36.0 HH (BEAKER) (test code = 760) [id number] 07:21:03 Test Item Value Reference Range Interpretation Comments MAGNESIUM (BEAKER) (test code = 2.0 mg/dL 1.6-2.6 627) Blackjack Supervisor ID - PIAYA LBASIC METABOLIC [id number] 07:21:02 Test Item Value Reference Range Interpretation [...] not appl icable for dialysis patien ts Blackjack Supervisor ID - PIAYA LPROTHROMBIN TIME/[id number] 07:11:04 Test Item Value Reference Range Interpretation [...] mechanical heart valves.CBC W/PLT COUNT & AUTO [id number] 06:42:15 Test Item Value Reference Range Interpretation [...] 0.00-1.00 PERCENT (BEAKER) (test code = 2801) [id number] 01:06:03 Test Item Value Reference Range Interpretation Comments PARTIAL THROMBOPLASTIN TIME 90.3 seconds 22.5-36.0 H (BEAKER) (test code = 760) [id number] 23:34:15 Test Item Value Reference Range Interpretation Comments PARTIAL THROMBOPLASTIN TIME > seconds 22.5-36.0 HH (BEAKER) (test code = 760) [id number] 14:56:56 Test Item Value Reference Range Interpretation Comments PARTIAL THROMBOPLASTIN TIME 40.2 seconds 22.5-36.0 H (BEAKER) (test code = 760) [id number] 12:49:04 Test Item Value Reference Range Interpretation Comments PARTIAL THROMBOPLASTIN TIME 139.9 seconds 22.5-36.0 H (BEAKER) (test code = 760) [id number] 08:00:43 Test Item Value Reference Range Interpretation Comments MAGNESIUM (BEAKER) (test code = 1.5 mg/dL 1.6-2.6 L 627) Blackjack Supervisor ID - MARCOBASIC METABOLIC [id number] 08:00:42 Test Item Value Reference Range Interpretation [...] not appl icable for dialysis patien ts Blackjack Supervisor ID - [id number] 06:54:28 Test Item Value Reference Range Interpretation Comments PARTIAL THROMBOPLASTIN TIME 180.9 seconds 22.5-36.0 HH (BEAKER) (test code = 760) [id number] 06:30:25 Test Item Value Reference Range Interpretation Comments PARTIAL THROMBOPLASTIN TIME 61.3 seconds 22.5-36.0 H (BEAKER) (test code = 760) [id number] 04:16:14 Test Item Value Reference Range Interpretation Comments PARTIAL THROMBOPLASTIN TIME > seconds 22.5-36.0 HH (BEAKER) (test code = 760) PROTHROMBIN TIME/[id number] 03:42:33 Test Item Value Reference Range Interpretation [...] mechanical heart valves.CBC W/PLT COUNT & AUTO [id number] 03:35:52 Test Item Value Reference Range Interpretation [...] 0.00-1.00 PERCENT (BEAKER) (test code = 2801) [id number] 20:27:00 Test Item Value Reference Range Interpretation Comments PARTIAL THROMBOPLASTIN TIME 53.4 seconds 22.5-36.0 H (BEAKER) (test code = 760) [id number] 18:26:32 Test Item Value Reference Range Interpretation Comments PARTIAL THROMBOPLASTIN TIME 112.2 seconds 22.5-36.0 H (BEAKER) (test code = 760) [id number] 10:53:07 Test Item Value Reference Range Interpretation Comments PARTIAL THROMBOPLASTIN TIME 48.7 seconds 22.5-36.0 H (BEAKER) (test code = 760) [id number] 04:20:11 Test Item Value Reference Range Interpretation Comments PARTIAL THROMBOPLASTIN TIME 50.2 seconds 22.5-36.0 H (BEAKER) (test code = 760) [id number] 02:16:45 Test Item Value Reference Range Interpretation Comments PARTIAL THROMBOPLASTIN TIME 120.7 seconds 22.5-36.0 H (BEAKER) (test code = 760) [id number] 01:49:02 Test Item Value Reference Range Interpretation Comments MAGNESIUM (BEAKER) (test code = 1.7 mg/dL 1.6-2.6 627) Blackjack Supervisor ID - IQPGNPYARHGT8456-93-41 01:49:02 Test Item Value Reference Range Interpretation Comments PHOSPHORUS (BEAKER) (test code = 4.7 mg/dL 2.3-4.7 604) Blackjack Supervisor ID - BSBASIC METABOLIC [id number] 01:49:01 Test Item Value Reference Range Interpretation [...] not appl icable for dialysis patien ts Blackjack Supervisor ID - BSPROTHROMBIN TIME/[id number] 01:46:19 Test Item Value Reference Range Interpretation [...] mechanical heart valves.CBC W/PLT COUNT & AUTO [id number] 01:29:16 Test Item Value Reference Range Interpretation [...] H PERCENT (BEAKER) (test code = 2801) [id number] 18:43:50 Test Item Value Reference Range Interpretation Comments PARTIAL THROMBOPLASTIN TIME 56.0 seconds 22.5-36.0 H (BEAKER) (test code = 760) [id number] 16:49:50 Test Item Value Reference Range Interpretation Comments PARTIAL THROMBOPLASTIN TIME 123.0 seconds 22.5-36.0 H (BEAKER) (test code = 760) [id number] 08:57:26 Test Item Value Reference Range Interpretation Comments PARTIAL THROMBOPLASTIN TIME 48.3 seconds 22.5-36.0 H (BEAKER) (test code = 760) [id number] 05:52:08 Test Item Value Reference Range Interpretation Comments PARTIAL THROMBOPLASTIN TIME 134.4 seconds 22.5-36.0 H (BEAKER) (test code = 760) PROTHROMBIN TIME/[id number] 05:18:02 Test Item Value Reference Range Interpretation Comments PROTIME (BEAKER) (test code = 14.1 seconds 11.9-14.2 759) INR (BEAKER) (test code = 370) 1.16 <=5.90 RECOMMENDED COUMADIN/WARFARIN INR THERAPY RANGESSTANDARD DOSE: 2.0 - 3.0 Includes: PROPHYLAXIS for venous thrombosis, systemic embolization; TREATMENT for venous thrombosis and/or pulmonary embolus.HIGH RISK: Target INR is 2.5-3.5 for patients with mechanical heart valves.[id number] 05:06:39 Test Item Value Reference Range Interpretation Comments PHOSPHORUS (BEAKER) (test code = 4.9 mg/dL 2.3-4.7 H 604) Blackjack Supervisor ID - BSBASIC METABOLIC [id number] 05:06:38 Test Item Value Reference Range Interpretation [...] not appl icable for dialysis patien ts Blackjack Supervisor ID - EBEXPVIEXZP2079-01-68 05:06:38 Test Item Value Reference Range Interpretation Comments MAGNESIUM (BEAKER) (test code = 1.7 mg/dL 1.6-2.6 627) Blackjack Supervisor ID - BSCBC W/PLT COUNT & AUTO [id number] 04:48:51 Test Item Value Reference Range Interpretation [...] 0.00-1.00 PERCENT (BEAKER) (test code = 2801) [id number] 21:33:18 Test Item Value Reference Range Interpretation Comments PARTIAL THROMBOPLASTIN TIME 51.5 seconds 22.5-36.0 H (BEAKER) (test code = 760) HEMOGLOBIN AND [id number] 18:35:26 Test Item Value Reference Range Interpretation Comments HEMOGLOBIN (BEAKER) (test code = 9.5 GM/DL 11.2-15.7 L 410) HEMATOCRIT (BEAKER) (test code = 30.9 % 34.1-44.9 L 411) Blackjack Supervisor ID - [id number] 14:30:55 Test Item Value Reference Range Interpretation Comments PARTIAL THROMBOPLASTIN TIME 59.3 seconds 22.5-36.0 H (BEAKER) (test code = 760) [id number] 06:21:11 Test Item Value Reference Range Interpretation Comments PARTIAL THROMBOPLASTIN TIME 62.1 seconds 22.5-36.0 H (BEAKER) (test code = 760) PROTHROMBIN TIME/[id number] 03:22:14 Test Item Value Reference Range Interpretation Comments PROTIME (BEAKER) (test code = 14.8 seconds 11.9-14.2 H 759) INR (BEAKER) (test code = 370) 1.23 <=5.90 RECOMMENDED COUMADIN/WARFARIN INR THERAPY RANGESSTANDARD DOSE: 2.0 - 3.0 Includes: PROPHYLAXIS for venous thrombosis, systemic embolization; TREATMENT for venous thrombosis and/or pulmonary embolus.HIGH RISK: Target INR is 2.5-3.5 for patients with mechanical heart valves.[id number] 03:16:55 Test Item Value Reference Range Interpretation Comments MAGNESIUM (BEAKER) (test code = 2.2 mg/dL 1.6-2.6 627) Blackjack Supervisor ID - DPJIZQKVWAHQ2023-04-46 03:16:55 Test Item Value Reference Range Interpretation Comments PHOSPHORUS (BEAKER) (test code = 3.8 mg/dL 2.3-4.7 604) Blackjack Supervisor ID - BSBASIC METABOLIC [id number] 03:16:54 Test Item Value Reference Range Interpretation [...] not appl icable for dialysis patien ts Blackjack Supervisor ID - BSCBC W/PLT COUNT & AUTO [id number] 02:57:48 Test Item Value Reference Range Interpretation [...] PERCENT (BEAKER) (test code = 2801) Prepare [id number] 23:54:00 Test Item Value Reference Range Interpretation Comments CROSSMATCH (test code = 2264) COMPATIBLE Unit ABO (test code = A Pos 6242557) UNIT NUMBER (test code = [id number] 934-0) Status (test code = 1534155) TX_TIMEINCHART Blood Bank Product (test code RED BLOOD CELLS = 2263) PRODUCT CODE (test code = W7125K30 933-2) [facility] [id number] 23:54:00 Test Item Value Reference Range Interpretation Comments CROSSMATCH (test code = 2264) COMPATIBLE Unit ABO (test code = A Pos 2439912) UNIT NUMBER (test code = [id number] 934-0) Status (test code = 4512573) TX_TIMEINCHART Blood Bank Product (test code RED BLOOD CELLS = 2263) PRODUCT CODE (test code = C2196T86 933-2) [facility] [id number] 23:54:00 Test Item Value Reference Range Interpretation Comments CROSSMATCH (test code = 2264) COMPATIBLE Unit ABO (test code = A Pos 5721772) UNIT NUMBER (test code = [id number] 934-0) Status (test code = 2840689) TX_TIMEINCHART Blood Bank Product (test code RED BLOOD CELLS = 2263) PRODUCT CODE (test code = W8466L27 933-2) [facility] [id number] 23:54:00 Test Item Value Reference Range Interpretation Comments CROSSMATCH (test code = 2264) COMPATIBLE Unit ABO (test code = A Pos 7623334) UNIT NUMBER (test code = [id number] 934-0) Status (test code = 3501870) TX_TIMEINCHART Blood Bank Product (test code RED BLOOD CELLS = 2263) PRODUCT CODE (test code = A5367S80 933-2) [facility] [id number] 23:54:00 Test Item Value Reference Range Interpretation Comments CROSSMATCH (test code = 2264) COMPATIBLE Unit ABO (test code = A Pos 5308603) UNIT NUMBER (test code = [id number] 934-0) Status (test code = 7801451) TX_TIMEINCHART Blood Bank Product (test code RED BLOOD CELLS = 2263) PRODUCT CODE (test code = V4974X74 933-2) [facility] [id number] 23:54:00 Test Item Value Reference Range Interpretation Comments CROSSMATCH (test code = 2264) COMPATIBLE Unit ABO (test code = A Pos 1491795) UNIT NUMBER (test code = [id number] 934-0) Status (test code = 5256060) TX_TIMEINCHART Blood Bank Product (test code RED BLOOD CELLS = 2263) PRODUCT CODE (test code = L1148L72 933-2) [facility] [id number] 23:54:00 Test Item Value Reference Range Interpretation Comments CROSSMATCH (test code = 2264) COMPATIBLE Unit ABO (test code = A Pos 4384434) UNIT NUMBER (test code = [id number] 934-0) Status (test code = 6853739) TX_TIMEINCHART Blood Bank Product (test code RED BLOOD CELLS = 2263) PRODUCT CODE (test code = W7349P69 933-2) [facility] [id number] 23:54:00 Test Item Value Reference Range Interpretation Comments CROSSMATCH (test code = 2264) COMPATIBLE Unit ABO (test code = A Pos 8655635) UNIT NUMBER (test code = [id number] 934-0) Status (test code = 7655172) TX_TIMEINCHART Blood Bank Product (test code RED BLOOD CELLS = 2263) PRODUCT CODE (test code = M5048C11 933-2) [facility] [id number] 23:54:00 Test Item Value Reference Range Interpretation Comments CROSSMATCH (test code = 2264) COMPATIBLE Unit ABO (test code = A Pos 1746317) UNIT NUMBER (test code = [id number] 934-0) Status (test code = 4740391) TX_TIMEINCHART Blood Bank Product (test code RED BLOOD CELLS = 2263) PRODUCT CODE (test code = G9884V34 933-2) [facility] [id number] 21:46:53 Test Item Value Reference Range Interpretation Comments HEMOGLOBIN (BEAKER) (test code = 9.0 GM/DL 11.2-15.7 L 410) HEMATOCRIT (BEAKER) (test code = 30.5 % 34.1-44.9 L 411) Blackjack Supervisor ID - [id number] Echo W/Doppler(CW/PW/Color)2022-05-21 18:02:14Ejection FractionSLEH ECHO HEARTLAB [facility] Echo W/Doppler(CW/PW/Color)2022-05-21 18:02:14Ejection FractionSLEH ECHO HEARTLAB [facility] Echo W/Doppler(CW/PW/Color) 2022-05-21 18:02:14Ejection FractionSLEH ECHO [facility]ART[facility] Echo W/Doppler(CW/PW/Color)2022-05-21 18:02:14Ejection FractionSLEH ECHO [facility]ARTLAB [facility] Echo W/Doppler(CW/PW/Color)2022-05-21 18:02:14Ejection FractionSLEH ECHO [facility]ARTLAB [facility] Echo W/Doppler(CW/PW/Color) 2022-05-21 18:02:14Ejection FractionSLEH ECHO [facility]ARTLAB [facility] Echo W/Doppler(CW/PW/Color)2022-05-21 18:02:14Ejection FractionSLEH ECHO [facility]ARTLAB [facility] Echo W/Doppler(CW/PW/Color)2022-05-21 18:02:14Ejection FractionSLEH ECHO [facility] W/Doppler(CW/PW/Color) 2022-05-21 18:02:14Ejection [facility]ractionSLEH [facility] 15:07:17 Test Item Value Reference Range Interpretation Comments PARTIAL THROMBOPLASTIN TIME 68.4 seconds 22.5-36.0 H (BEAKER) (test code = 760) PROTHROMBIN TIME/[id number] 15:05:56 Test Item Value Reference Range Interpretation Comments PROTIME (BEAKER) (test code = 15.5 seconds 11.9-14.2 H 759) INR (BEAKER) (test code = 370) 1.31 <=5.90 RECOMMENDED COUMADIN/WARFARIN INR THERAPY RANGESSTANDARD DOSE: 2.0 - 3.0 Includes: PROPHYLAXIS for venous thrombosis, systemic embolization; TREATMENT for venous thrombosis and/or pulmonary embolus.HIGH RISK: Target INR is 2.5-3.5 for patients with mechanical heart valves.TSH/FREE T4 IF [id number] 13:50:00 Test Item Value Reference Range Interpretation Comments THYROID STIMULATING HORMONE 1.746 uIU/mL 0.350-4.940 (BEAKER) (test code = 772) Blackjack Supervisor ID - ARMAND LHEMOGLOBIN AND [id number] 13:00:10 Test Item Value Reference Range Interpretation Comments HEMOGLOBIN (BEAKER) (test code = 9.0 GM/DL 11.2-15.7 L 410) HEMATOCRIT (BEAKER) (test code = 29.3 % 34.1-44.9 L 411) Blackjack Supervisor ID - [id number] 08:55:39 Test Item Value Reference Range Interpretation Comments PARTIAL THROMBOPLASTIN TIME 70.0 seconds 22.5-36.0 H (BEAKER) (test code = 760) [id number] 05:39:20 Test Item Value Reference Range Interpretation Comments PHOSPHORUS (BEAKER) (test code = 3.3 mg/dL 2.3-4.7 604) Blackjack Supervisor ID - MARCOBASIC METABOLIC [id number] 05:39:19 Test Item Value Reference Range Interpretation [...] not appl icable for dialysis patien ts Blackjack Supervisor ID - [id number] 05:39:19 Test Item Value Reference Range Interpretation Comments MAGNESIUM (BEAKER) (test code = 1.6 mg/dL 1.6-2.6 627) Blackjack Supervisor ID - MARCOCBC W/PLT COUNT & AUTO [id number] 05:18:48 Test Item Value Reference Range Interpretation [...] 0.00-1.00 PERCENT (BEAKER) (test code = 2801) [id number] 01:34:38 Test Item Value Reference Range Interpretation Comments PARTIAL THROMBOPLASTIN TIME 94.3 seconds 22.5-36.0 H (BEAKER) (test code = 760) PROTHROMBIN TIME/[id number] 01:32:54 Test Item Value Reference Range Interpretation Comments PROTIME (BEAKER) (test code = 15.8 seconds 11.9-14.2 H 759) INR (BEAKER) (test code = 370) 1.35 <=5.90 RECOMMENDED COUMADIN/WARFARIN INR THERAPY RANGESSTANDARD DOSE: 2.0 - 3.0 Includes: PROPHYLAXIS for venous thrombosis, systemic embolization; TREATMENT for venous thrombosis and/or pulmonary embolus.HIGH RISK: Target INR is 2.5-3.5 for patients with mechanical heart valves.HEMOGLOBIN AND [id number] 20:48:52 Test Item Value Reference Range Interpretation Comments HEMOGLOBIN (BEAKER) (test code = 8.6 GM/DL 11.2-15.7 L 410) HEMATOCRIT (BEAKER) (test code = 27.9 % 34.1-44.9 L 411) Blackjack Supervisor ID - [id number] 17:34:13 Test Item Value Reference Range Interpretation Comments PARTIAL THROMBOPLASTIN TIME 53.7 seconds 22.5-36.0 H (BEAKER) (test code = 760) PROTHROMBIN TIME/[id number] 17:33:32 Test Item Value Reference Range Interpretation Comments PROTIME (BEAKER) (test code = 16.0 seconds 11.9-14.2 H 759) INR (BEAKER) (test code = 370) 1.37 <=5.90 RECOMMENDED COUMADIN/WARFARIN INR THERAPY RANGESSTANDARD DOSE: 2.0 - 3.0 Includes: PROPHYLAXIS for venous thrombosis, systemic embolization; TREATMENT for venous thrombosis and/or pulmonary embolus.HIGH RISK: Target INR is 2.5-3.5 for patients with mechanical heart valves.[id number] 13:24:26 Test Item Value Reference Range Interpretation Comments PARTIAL THROMBOPLASTIN TIME 70.7 seconds 22.5-36.0 H (BEAKER) (test code = 760) HEMOGLOBIN AND [id number] 13:10:45 Test Item Value Reference Range Interpretation Comments HEMOGLOBIN (BEAKER) (test code = 8.4 GM/DL 11.2-15.7 L 410) HEMATOCRIT (BEAKER) (test code = 27.0 % 34.1-44.9 L 411) Blackjack Supervisor ID - 6000Prepare [id number] 08:19:00 Test Item Value Reference Range Interpretation Comments CROSSMATCH (test code = 2264) COMPATIBLE Unit ABO (test code = A Pos 5643969) UNIT NUMBER (test code = [id number] 934-0) Status (test code = 2746550) ISSUED Blood Bank Product (test code RED BLOOD CELLS = 2263) PRODUCT CODE (test code = [id number] 933-2) [facility] [id number] 08:19:00 Test Item Value Reference Range Interpretation Comments CROSSMATCH (test code = 2264) COMPATIBLE Unit ABO (test code = A Pos 2663979) UNIT NUMBER (test code = [id number] 934-0) Status (test code = 3539573) ISSUED Blood Bank Product (test code RED BLOOD CELLS = 2263) PRODUCT CODE (test code = [id number] 933-2) [facility] CenterAPTT2023-02-05 05:24:24 Test Item Value Reference Range Interpretation Comments PARTIAL THROMBOPLASTIN TIME 91.6 seconds 22.5-36.0 H (BEAKER) (test code = 760) [id number] 04:22:23 Test Item Value Reference Range Interpretation Comments MAGNESIUM (BEAKER) (test code = 1.8 mg/dL 1.6-2.6 627) Blackjack Supervisor ID - ARMAND RADIQKGZFIK4589-30-81 04:22:23 Test Item Value Reference Range Interpretation Comments PHOSPHORUS (BEAKER) (test code = 4.1 mg/dL 2.3-4.7 604) Blackjack Supervisor ID - PIAYA LBASIC METABOLIC [id number] 04:22:22 Test Item Value Reference Range Interpretation [...] (test code = 697) EGFR (BEAKER) 90 Interpretati on of eGFR (test code = [...] not appl icable for dialysis patien ts Blackjack Supervisor ID - PIAYA LPROTHROMBIN TIME/[id number] 03:58:55 Test Item Value Reference Range Interpretation [...] mechanical heart valves.CBC W/PLT COUNT & AUTO [id number] 03:54:23 Test Item Value Reference Range Interpretation [...] 0.00-1.00 PERCENT (BEAKER) (test code = 2801) [id number] 23:23:33 Test Item Value Reference Range Interpretation Comments PARTIAL THROMBOPLASTIN TIME 63.2 seconds 22.5-36.0 H (BEAKER) (test code = 760) HEMOGLOBIN AND [id number] 21:26:00 Test Item Value Reference Range Interpretation Comments HEMOGLOBIN (BEAKER) (test code = 7.6 GM/DL 11.2-15.7 L 410) HEMATOCRIT (BEAKER) (test code = 24.8 % 34.1-44.9 L 411) Blackjack Supervisor ID - [id number] 17:30:54 Test Item Value Reference Range Interpretation Comments PARTIAL THROMBOPLASTIN TIME 37.0 seconds 22.5-36.0 H (BEAKER) (test code = 760) PROTHROMBIN TIME/[id number] 17:29:53 Test Item Value Reference Range Interpretation Comments PROTIME (BEAKER) (test code = 18.3 seconds 11.9-14.2 H 759) INR (BEAKER) (test code = 370) 1.62 <=5.90 RECOMMENDED COUMADIN/WARFARIN INR THERAPY RANGESSTANDARD DOSE: 2.0 - 3.0 Includes: PROPHYLAXIS for venous thrombosis, systemic embolization; TREATMENT for venous thrombosis and/or pulmonary embolus.HIGH RISK: Target INR is 2.5-3.5 for patients with mechanical heart valves.PROTHROMBIN TIME/[id number] 12:31:00 Test Item Value Reference Range Interpretation Comments PROTIME (BEAKER) (test code = 18.7 seconds 11.9-14.2 H 759) INR (BEAKER) (test code = 370) 1.61 <=5.90 RECOMMENDED COUMADIN/WARFARIN INR THERAPY RANGESSTANDARD DOSE: 2.0 - 3.0 Includes: PROPHYLAXIS for venous thrombosis, systemic embolization; TREATMENT for venous thrombosis and/or pulmonary embolus.HIGH RISK: Target INR is 2.5-3.5 for patients with mechanical heart valves.HEMOGLOBIN AND [id number] 12:24:20 Test Item Value Reference Range Interpretation Comments HEMOGLOBIN (BEAKER) (test code = 7.4 GM/DL 11.2-15.7 L 410) HEMATOCRIT (BEAKER) (test code = 23.7 % 34.1-44.9 L 411) Blackjack Supervisor ID - 6000POC-Glucose mcfpc4216-98-42 05:40:23 Test Item Value Reference Range Interpretation Comments POC-Glucose Meter (test 78 mg/dL 70-110 : TE STED AT [facility] code = 1538) [address] [place] [address], 770 30: Blackjack Supervisor/Techni valarie ID = [id number] for Yumi, James Lab Interpretation (test Normal code = 27375-6) [facility] [id number] 05:40:23 Test Item Value Reference Range Interpretation Comments POC-Glucose Meter (test 78 mg/dL 70-110 : TE STED AT [facility] code = 1538) [address] [place] [address], 770 30: Blackjack Supervisor/Techni valarie ID = [id number] for Yumi, James Lab Interpretation (test Normal code = 64022-9) [facility] ngyqj2577-05-22 05:40:23 Test Item Value Reference Range Interpretation Comments POC-Glucose Meter (test 78 mg/dL 70-110 : [facility] [address] [place] [address], 770 30: Blackjack Supervisor/Techni valarie ID = [id number] for Yumi, James Lab Interpretation (test Normal code = 61109-5) [facility] [id number] 05:40:23 Test Item Value Reference Range Interpretation Comments POC-Glucose Meter (test 78 mg/dL 70-110 : TE STED AT [facility] code = 1538) [address] [place] [address], [facility] 30: Blackjack Supervisor/Techni valarie ID = [id number] for Yuim, James Lab Interpretation (test Normal code = 87039-6) [place] [facility]-Glucose [id number] 05:40:23 Test Item Value Reference Range Interpretation Comments POC-Glucose Meter (test 78 mg/dL 70-110 : TE STED AT [facility] code = 1538) [address] [place] [address], [facility] 30: Blackjack Supervisor/Techni valarie ID = [id number] for Yumi, James Lab Interpretation (test Normal code = 89921-0) [facility] [id number] 05:40:23 Test Item Value Reference Range Interpretation Comments POC-Glucose Meter (test 78 mg/dL 70-110 : TE STED AT [facility] code = 1538) [address] [place] [address], [facility] 30: Blackjack Supervisor/Techni valarie ID = [id number] for Yumi, James Lab Interpretation (test Normal code = 71015-6) [facility] [id number] 05:40:23 Test Item Value Reference Range Interpretation Comments POC-Glucose Meter (test 78 mg/dL 70-110 : TE STED AT [facility] code = 1538) [address] [place] [address], 770 30: Blackjack Supervisor/Techni valarie ID = [id number] for Yumi, James Lab Interpretation (test Normal code = 21874-9) [facility] [id number] 05:40:23 Test Item Value Reference Range Interpretation Comments POC-Glucose Meter (test 78 mg/dL 70-110 : TE STED AT [facility] code = 1538) [address] [facility], 770 30: Blackjack Supervisor/Techni valarie ID = [id number] for Yumi, James Lab Interpretation (test Normal code = 99989-5) [place] [facility]-Glucose [id number] 05:40:23 Test Item Value Reference Range Interpretation Comments POC-Glucose Meter (test 78 mg/dL 70-110 : TE STED AT [facility] code = 1538) [address] [facility], 770 30: Blackjack Supervisor/Techni valarie ID = [id number] for Yumi, James Lab Interpretation (test Normal code = 50770-8) [place] [facility]-Glucose [id number] 05:40:23 Test Item Value Reference Range Interpretation Comments POC-Glucose Meter (test 78 mg/dL 70-110 : TE STED AT [facility] code = 1538) [address] [place] [address], 770 30: Blackjack Supervisor/Techni valarie ID = [id number] for Yumi, James Lab Interpretation (test Normal code = 05701-6) [place] [facility]-Glucose [id number] 05:40:23 Test Item Value Reference Range Interpretation Comments POC-Glucose Meter (test 78 mg/dL 70-110 : TE STED AT [facility] code = 1538) [address] [place] [address], 770 30: Blackjack Supervisor/Techni valarie ID = [id number] for Yumi, James Lab Interpretation (test Normal code = 77229-6) [facility]-GLUCOSE [id number] 05:40:23 Test Item Value Reference Range Interpretation Comments POC-GLUCOSE METER 78 mg/dL 70-110 : TESTED A T [facility] 6720 (BEAKER) (test code = [facility], 1538) [address]: Blackjack Supervisor/Techni valarie ID = [id number] for Dilo James cuevas [id number] 04:23:09 Test Item Value Reference Range Interpretation Comments MAGNESIUM (BEAKER) (test code = 2.1 mg/dL 1.6-2.6 627) Blackjack Supervisor ID - ARMAND MTFJHEIZCTH3481-95-62 04:23:09 Test Item Value Reference Range Interpretation Comments PHOSPHORUS (BEAKER) (test code = 1.9 mg/dL 2.3-4.7 L 604) Blackjack Supervisor ID - ARMAND LBASIC METABOLIC [id number] 04:23:08 Test Item Value Reference Range Interpretation [...] not appl icable for dialysis patien ts Blackjack Supervisor ID - PIDYLAN LPROTHROMBIN TIME/[id number] 04:07:24 Test Item Value Reference Range Interpretation [...] mechanical heart valves.CBC W/PLT COUNT & AUTO [id number] 04:00:27 Test Item Value Reference Range Interpretation [...] PERCENT (BEAKER) (test code = 2801) POCT-GLUCOSE [id number] 23:14:02 Test Item Value Reference Range Interpretation Comments POC-GLUCOSE METER 86 mg/dL 70-110 : TESTED A T [facility] 6720 (BEAKER) (test code = [place], 1538) [address]: Blackjack Supervisor/Techni valarie ID = [id number] for Robles Hanson BUN AND CREATININE W/[id number] 21:02:50 Test Item Value Reference Range Interpretation Comments BLOOD UREA 10 mg/dL 7-21 NITROGEN (BEAKER) (test code = 354) CREATININE 0.79 mg/dL 0.57-1.25 (BEAKER) (test code = 358) BUN/CREAT RATIO 13 For a normal individual on (BEAKER) (test a normal diet , the code = reference inter [place] for the [id number]) mass ratio rang es between 12:1 and [...] not appl icable for dialysis patien ts Blackjack Supervisor ID - [id number] 21:02:49 Test Item Value Reference Range Interpretation Comments MAGNESIUM (BEAKER) (test code = 2.1 mg/dL 1.6-2.6 627) Blackjack Supervisor ID - MINTEWOXNZC4718-31-18 21:02:49 Test Item Value Reference Range Interpretation Comments POTASSIUM (BEAKER) (test code = 3.7 meq/L 3.5-5.1 379) Blackjack Supervisor ID - BSHEMOGLOBIN AND [id number] 20:18:40 Test Item Value Reference Range Interpretation Comments HEMOGLOBIN (BEAKER) (test code = 7.5 GM/DL 11.2-15.7 L 410) HEMATOCRIT (BEAKER) (test code = 23.4 % 34.1-44.9 L 411) Blackjack Supervisor ID - [id number], CTA OHRQBRB7938-42-28 19:41:00Unlisted Reason for Exam - Click Yes and Enter Reason Below->YesUnlisted Reason for Exam->Looking for mesenteric ischemia. [facility] 1955 Sex: FFINAL REPORT CLINICAL [...] them to the physician. Signed: Ayden Goff [facility] Verified Date/Time: 05/18/2022 19:41:16 POCT-GLUCOSE [id number] 19:08:28 Test Item Value Reference Range Interpretation Comments POC-GLUCOSE METER 91 mg/dL 70-110 : TESTED A T [facility] 6720 (BEAKER) (test code = [place], 1538) [address]: Blackjack Supervisor/Techni valarie ID = [id number] for Scarlet Maravilla HIGH SENSITIVITY TROPONIN [id number] 16:22:26 Test Item Value Reference Range Interpretation Comments HIGH SENSITIVITY TROPONIN I (test 9 pg/ml <=17 code = 4808070) Blackjack Supervisor ID - BSThe DIRECTOR OF STRATEGIC INITIATIVES STAT High Sensitivity Troponin-I results should be used in conjunctionwith other diagnostic information such as ECG, clinical observations and information, and patient symptoms to aid in the diagnosis of [place].Urinalysis w/Microscopic + Reflex to [id number] 16:12:56 Test Item Value Reference Range Interpretation Comments Color, UA (test code Yellow = 5778-6) Clarity, UA (test Hazy code = 5767-9) Specific [place], UA 1.045 1.001-1.035 H (test code = 5811-5) pH, UA (test code = 6.5 5.0-8.0 5803-2) Protein, UA (test 20 mg/dL Negative A code = 43124-5) Glucose, UA (test Negative Negative code = 365) Ketones, UA (test Negative Negative code = 2514-8) Bilirubin, UA (test Negative Negative code = 06104-0) Blood, UA (test code Moderate Negative A = 52723-0) Nitrite, UA (test Negative Negative code = 5802-4) Leukocytes, UA (test Large Negative A code = 5799-2) Urobilinogen, UA 0.2 0.2-1.0 (test code = 36762-8) RBC, UA (test code = 34 See_Comment [Autom ated 93016-0) message] The system which generated this result [...] . Bacteria, UA (test Few code = 19873-1) Squam Epithel, UA <1 See_Comment [Automate d (test code = 07993-3) messag e] The system which generated this result transmit bandar reference range : /HPF. The reference range was not used to interpret this result as normal/abnormal . Specimen Source (test code = 2795) ROBERT (test code = ROBERT) Blackjack Supervisor ID - [auto]Blackjack Supervisor ID - tech Lab Interpretation Abnormal (test code = 04351-4) [facility]scopic + Reflex to Culture 2022-05-18 16:12:56 Test Item Value Reference Range Interpretation Comments Color, UA (test code Yellow = 5778-6) Clarity, UA (test Hazy code = 5767-9) Specific [place], UA 1.045 1.001-1.035 H (test code = 5811-5) pH, UA (test code = 6.5 5.0-8.0 5803-2) Protein, UA (test 20 mg/dL Negative A code = 32044-6) Glucose, UA (test Negative Negative code = 365) Ketones, UA (test Negative Negative code = 2514-8) Bilirubin, UA (test Negative Negative code = 96868-5) Blood, UA (test code Moderate Negative A = 46687-3) Nitrite, UA (test Negative Negative code = 5802-4) Leukocytes, UA (test Large Negative A code = 5799-2) Urobilinogen, UA 0.2 0.2-1.0 (test code = 69030-3) RBC, UA (test code = 34 See_Comment [Autom ated 09530-3) message] The system which generated this result [...] . Bacteria, UA (test Few code = 83512-1) Squam Epithel, UA <1 See_Comment [Automate d (test code = 98816-6) messag e] The system which generated this result transmit bandar reference range : /HPF. The reference range was not used to interpret this result as normal/abnormal . Specimen Source (test code = 2795) ROBERT (test code = ROBERT) Blackjack Supervisor ID - [auto]Blackjack Supervisor ID - tech Lab Interpretation Abnormal (test code = 93966-0) [facility]/Microscopic + Reflex to Culture 2022-05-18 16:12:56 Test Item Value Reference Range Interpretation Comments Color, UA (test code Yellow = 5778-6) Clarity, UA (test Hazy code = 5767-9) Specific [place], UA 1.045 1.001-1.035 H (test code = 5811-5) pH, UA (test code = 6.5 5.0-8.0 5803-2) Protein, UA (test 20 mg/dL Negative A code = 69779-3) Glucose, UA (test Negative Negative code = 365) Ketones, UA (test Negative Negative code = 2514-8) Bilirubin, UA (test Negative Negative code = 46188-5) Blood, UA (test code Moderate Negative A = 51322-7) Nitrite, UA (test Negative Negative code = 5802-4) Leukocytes, UA (test Large Negative A code = 5799-2) Urobilinogen, UA 0.2 0.2-1.0 (test code = 85551-7) RBC, UA (test code = 34 See_Comment [Autom ated 01881-4) message] The system which generated this result [...] . Bacteria, UA (test Few code = 55431-0) Squam Epithel, UA <1 See_Comment [Automate d (test code = 39053-5) messag e] The system which generated this result transmit bandar reference range : /HPF. The reference range was not used to interpret this result as normal/abnormal . Specimen Source (test code = 2795) ROBERT (test code = ROBERT) Blackjack Supervisor ID - [auto]Blackjack Supervisor ID - tech Lab Interpretation Abnormal (test code = 90578-8) [facility]/Microscopic + Reflex to Culture 2022-05-18 16:12:56 Test Item Value Reference Range Interpretation Comments Color, UA (test code Yellow = 5778-6) Clarity, UA (test Hazy code = 5767-9) Specific [place], UA 1.045 1.001-1.035 H (test code = 5811-5) pH, UA (test code = 6.5 5.0-8.0 5803-2) Protein, UA (test 20 mg/dL Negative A code = 92139-0) Glucose, UA (test Negative Negative code = 365) Ketones, UA (test Negative Negative code = 2514-8) Bilirubin, UA (test Negative Negative code = 54474-7) Blood, UA (test code Moderate Negative A = 69362-4) Nitrite, UA (test Negative Negative code = 5802-4) Leukocytes, UA (test Large Negative A code = 5799-2) Urobilinogen, UA 0.2 0.2-1.0 (test code = 06764-9) RBC, UA (test code = 34 See_Comment [Autom ated 22955-3) message] The system which generated this result [...] . Bacteria, UA (test Few code = 12316-8) Squam Epithel, UA <1 See_Comment [Automate d (test code = 07186-2) messag e] The system which generated this result transmit bandar reference range : /HPF. The reference range was not used to interpret this result as normal/abnormal . Specimen Source (test code = 2795) ROBERT (test code = ROBERT) Blackjack Supervisor ID - [auto]Blackjack Supervisor ID - tech Lab Interpretation Abnormal (test code = 62891-7) [facility] w/Microscopic + Reflex to Culture 2022-05-18 16:12:56 Test Item Value Reference Range Interpretation Comments Color, UA (test code Yellow = 5778-6) Clarity, UA (test Hazy code = 5767-9) Specific [place], UA 1.045 1.001-1.035 H (test code = 5811-5) pH, UA (test code = 6.5 5.0-8.0 5803-2) Protein, UA (test 20 mg/dL Negative A code = 92879-8) Glucose, UA (test Negative Negative code = 365) Ketones, UA (test Negative Negative code = 2514-8) Bilirubin, UA (test Negative Negative code = 69425-6) Blood, UA (test code Moderate Negative A = 72885-3) Nitrite, UA (test Negative Negative code = 5802-4) Leukocytes, UA (test Large Negative A code = 5799-2) Urobilinogen, UA 0.2 0.2-1.0 (test code = 70366-2) RBC, UA (test code = 34 See_Comment [Autom ated 83932-5) message] The system which generated this result [...] . Bacteria, UA (test Few code = 23564-2) Squam Epithel, UA <1 See_Comment [Automate d (test code = 47146-7) messag e] The system which generated this result transmit bandar reference range : /HPF. The reference range was not used to interpret this result as normal/abnormal . Specimen Source (test code = 2795) ROBERT (test code = ROBERT) Blackjack Supervisor ID - [auto]Blackjack Supervisor ID - tech Lab Interpretation Abnormal (test code = 57282-7) [facility]/Microscopic + Reflex to Culture 2022-05-18 16:12:56 Test Item Value Reference Range Interpretation Comments Color, UA (test code Yellow = 5778-6) Clarity, UA (test Hazy code = 5767-9) Specific [place], UA 1.045 1.001-1.035 H (test code = 5811-5) pH, UA (test code = 6.5 5.0-8.0 5803-2) Protein, UA (test 20 mg/dL Negative A code = 16862-4) Glucose, UA (test Negative Negative code = 365) Ketones, UA (test Negative Negative code = 2514-8) Bilirubin, UA (test Negative Negative code = 79029-6) Blood, UA (test code Moderate Negative A = 87834-9) Nitrite, UA (test Negative Negative code = 5802-4) Leukocytes, UA (test Large Negative A code = 5799-2) Urobilinogen, UA 0.2 0.2-1.0 (test code = 08210-8) RBC, UA (test code = 34 See_Comment [Autom ated 30688-2) message] The system which generated this result [...] . Bacteria, UA (test Few code = 25850-9) Squam Epithel, UA See_Comment [Automate d (test code = 87628-6) messag e] The system which generated this result transmit bandar reference range : /HPF. The reference range was not used to interpret this result as normal/abnormal . Specimen Source (test code = 2795) ROBERT (test code = ROBERT) Blackjack Supervisor ID - [auto]Blackjack Supervisor ID - tech Lab Interpretation Abnormal (test code = 45714-8) [facility]/Microscopic + Reflex to Culture 2022-05-18 16:12:56 Test Item Value Reference Range Interpretation Comments Color, UA (test code Yellow = 5778-6) Clarity, UA (test Hazy code = 5767-9) Specific [place], UA 1.045 1.001-1.035 H (test code = 5811-5) pH, UA (test code = 6.5 5.0-8.0 5803-2) Protein, UA (test 20 mg/dL Negative A code = 72116-9) Glucose, UA (test Negative Negative code = 365) Ketones, UA (test Negative Negative code = 2514-8) Bilirubin, UA (test Negative Negative code = 63622-4) Blood, UA (test code Moderate Negative A = 55534-0) Nitrite, UA (test Negative Negative code = 5802-4) Leukocytes, UA (test Large Negative A code = 5799-2) Urobilinogen, UA 0.2 0.2-1.0 (test code = 21819-1) RBC, UA (test code = 34 See_Comment [Autom ated 98774-6) message] The system which generated this result [...] . Bacteria, UA (test Few code = 91895-8) Squam Epithel, UA See_Comment [Automate d (test code = 11477-6) messag e] The system which generated this result transmit bandar reference range : /HPF. The reference range was not used to interpret this result as normal/abnormal . Specimen Source (test code = 2795) ROBERT (test code = ROBERT) Blackjack Supervisor ID - [auto]Blackjack Supervisor ID - tech Lab Interpretation Abnormal (test code = 40371-2) [facility]/Microscopic + Reflex to Culture 2022-05-18 16:12:56 Test Item Value Reference Range Interpretation Comments Color, UA (test code Yellow = 5778-6) Clarity, UA (test Hazy code = 5767-9) Specific [place], UA 1.045 1.001-1.035 H (test code = 5811-5) pH, UA (test code = 6.5 5.0-8.0 5803-2) Protein, UA (test 20 mg/dL Negative A code = 35838-2) Glucose, UA (test Negative Negative code = 365) Ketones, UA (test Negative Negative code = 2514-8) Bilirubin, UA (test Negative Negative code = 45335-3) Blood, UA (test code Moderate Negative A = 30256-0) Nitrite, UA (test Negative Negative code = 5802-4) Leukocytes, UA (test Large Negative A code = 5799-2) Urobilinogen, UA 0.2 0.2-1.0 (test code = 08427-2) RBC, UA (test code = 34 See_Comment [Autom ated 77715-4) message] The system which generated this result [...] . Bacteria, UA (test Few code = 41099-3) Squam Epithel, UA See_Comment [Automate d (test code = 06818-6) messag e] The system which generated this result transmit bandar reference range : /HPF. The reference range was not used to interpret this result as normal/abnormal . Specimen Source (test code = 2795) ROBERT (test code = ROBERT) Blackjack Supervisor ID - [auto]Blackjack Supervisor ID - tech Lab Interpretation Abnormal (test code = 75630-0) [facility]lex [facility] Culture 2022-05-18 16:12:56 Test Item Value Reference Range Interpretation Comments Color, UA (test code Yellow = 5778-6) Clarity, UA (test Hazy code = 5767-9) Specific [place], UA 1.045 1.001-1.035 H (test code = 5811-5) pH, UA (test code = 6.5 5.0-8.0 5803-2) Protein, UA (test 20 mg/dL Negative A code = 48743-0) Glucose, UA (test Negative Negative code = 365) Ketones, UA (test Negative Negative code = 2514-8) Bilirubin, UA (test Negative Negative code = 81325-0) Blood, UA (test code Moderate Negative A = 01400-0) Nitrite, UA (test Negative Negative code = 5802-4) Leukocytes, UA (test Large Negative A code = 5799-2) Urobilinogen, UA 0.2 0.2-1.0 (test code = 94232-6) RBC, UA (test code = 34 See_Comment [Autom ated 30919-6) message] The system which generated this result [...] . Bacteria, UA (test Few code = 73613-2) Squam Epithel, UA See_Comment [Automate d (test code = 61190-6) messag e] The system which generated this result transmit bandar reference range : /HPF. The reference range was not used to interpret this result as normal/abnormal . Specimen Source (test code = 2795) ROBERT (test code = ROBERT) Blackjack Supervisor ID - [auto]Blackjack Supervisor ID - tech Lab Interpretation Abnormal (test code = 39028-8) [facility] + Reflex to Culture 2022-05-18 16:12:56 Test Item Value Reference Range Interpretation Comments Color, UA (test code Yellow = 5778-6) Clarity, UA (test Hazy code = 5767-9) Specific [place], UA 1.045 1.001-1.035 H (test code = 5811-5) pH, UA (test code = 6.5 5.0-8.0 5803-2) Protein, UA (test 20 mg/dL Negative A code = 05083-4) Glucose, UA (test Negative Negative code = 365) Ketones, UA (test Negative Negative code = 2514-8) Bilirubin, UA (test Negative Negative code = 06307-6) Blood, UA (test code Moderate Negative A = 39714-4) Nitrite, UA (test Negative Negative code = 5802-4) Leukocytes, UA (test Large Negative A code = 5799-2) Urobilinogen, UA 0.2 0.2-1.0 (test code = 11811-5) RBC, UA (test code = 34 See_Comment [Autom ated 39227-6) message] The system which generated this result [...] . Bacteria, UA (test Few code = 49393-3) Squam Epithel, UA See_Comment [Automate d (test code = 41870-9) messag e] The system which generated this result transmit bandar reference range : /HPF. The reference range was not used to interpret this result as normal/abnormal . Specimen Source (test code = 2795) ROBERT (test code = ROBERT) Blackjack Supervisor ID - [auto]Blackjack Supervisor ID - tech Lab Interpretation Abnormal (test code = 37639-0) [facility] + Reflex to Culture 2022-05-18 16:12:56 Test Item Value Reference Range Interpretation Comments Color, UA (test code Yellow = 5778-6) Clarity, UA (test Hazy code = 5767-9) Specific [place], UA 1.045 1.001-1.035 H (test code = 5811-5) pH, UA (test code = 6.5 5.0-8.0 5803-2) Protein, UA (test 20 mg/dL Negative A code = 94311-8) Glucose, UA (test Negative Negative code = 365) Ketones, UA (test Negative Negative code = 2514-8) Bilirubin, UA (test Negative Negative code = 03224-4) Blood, UA (test code Moderate Negative A = 48005-7) Nitrite, UA (test Negative Negative code = 5802-4) Leukocytes, UA (test Large Negative A code = 5799-2) Urobilinogen, UA 0.2 0.2-1.0 (test code = 88476-8) RBC, UA (test code = 34 See_Comment [Autom ated 94105-3) message] The system which generated this result [...] . Bacteria, UA (test Few code = 18250-2) Squam Epithel, UA See_Comment [Automate d (test code = 35162-8) messag e] The system which generated this result transmit bandar reference range : /HPF. The reference range was not used to interpret this result as normal/abnormal . Specimen Source (test code = 2795) ROBERT (test code = ROBERT) Blackjack Supervisor ID - [auto]Blackjack Supervisor ID - tech Lab Interpretation Abnormal (test code = 91307-4) [facility]/ REFLEX URINE [id number] 16:12:56 Test Item Value Reference Range Interpretation [...] = 516) SOURCE(BEAKER) (test code = 2795) Blackjack Supervisor ID - [auto]Blackjack Supervisor ID - techPROTHROMBIN [id number] 16:02:01 Test Item Value Reference Range Interpretation Comments PROTIME (BEAKER) (test code = 25.8 seconds 11.9-14.2 H 759) INR (BEAKER) (test code = 370) 2.54 <=5.90 RECOMMENDED COUMADIN/WARFARIN INR THERAPY RANGESSTANDARD DOSE: 2.0 - 3.0 Includes: PROPHYLAXIS for venous thrombosis, systemic embolization; TREATMENT for venous thrombosis and/or pulmonary embolus.HIGH RISK: Target INR is 2.5-3.5 for patients with mechanical heart valves.CALCIUM, [id number] 13:31:38 Test Item Value Reference Range Interpretation [...] 0-0 (BEAKER) (test code = 413) POCT-GLUCOSE [id number] 13:07:25 Test Item Value Reference Range Interpretation Comments POC-GLUCOSE METER 81 mg/dL 70-110 : TESTED A T [facility] 6720 (BEAKER) (test code = JOSELITO BURRELL [place], 1538) 08205: Blackjack Supervisor/Techni valarie ID = [id number] for Scarlet Maravilla B-TYPE NATRIURETIC FACTOR (BNP)2022-05-18 11:38:06 Test Item Value Reference Range Interpretation Comments B-TYPE NATRIURETIC PEPTIDE (BEAKER) 97 pg/mL 0-100 (test code = 700) Blackjack Supervisor ID - FANTASMA [id number] 11:34:39 Test Item Value Reference Range Interpretation Comments FIBRINOGEN LEVEL (BEAKER) (test 440 mg/dl 225-434 H code = 658) [id number] 11:32:28 Test Item Value Reference Range Interpretation Comments LIPASE (BEAKER) (test code = 749) 13 U/L 8-78 Blackjack Supervisor ID - FANTASMA BCOMPREHENSIVE METABOLIC [id number] 11:32:27 Test Item Value Reference Range Interpretation [...] not appl icable for dialysis patien ts Blackjack Supervisor ID - FANTASMA [id number] 11:32:27 Test Item Value Reference Range Interpretation Comments MAGNESIUM (BEAKER) (test code = 1.7 mg/dL 1.6-2.6 627) Blackjack Supervisor ID - FANTASMA [id number] 11:32:27 Test Item Value Reference Range Interpretation Comments PHOSPHORUS (BEAKER) (test code = 2.9 mg/dL 2.3-4.7 604) Blackjack Supervisor ID - FANTASMA [id number] 11:21:21 Test Item Value Reference Range Interpretation [...] for patients with mechanical heart valves.LACTIC ACID, [id number] 11:20:59 Test Item Value Reference Range Interpretation Comments LACTATE BLOOD VENOUS (2) (BEAKER) 1.40 mmol/L 0.50-2.20 (test code = 2872) Blackjack Supervisor ID - FANTASMA B Notes Date/Time Note Provider Source 2022-12-06 Formatting of this note might be differe nt from the original. Eliane Dinero MA [facility] 11:42:27-00:00 Notified Tobias with [facility] per D r Sy: INR is 2.6 Resume current dose (Warfarin 2mg 3 times a week and 1 mg 4 times a week) Repeat INR in 2 weeks Verbal understanding and stated she would notify patient. 2022-12-06 Formatting of this note might be differe nt from the original. Lula Patel [facility] 10:07:04-00:00 Tobias with [facility] is requesting a call back in regards to the INR results. Please advise. Electronically signed by Lula Patel at 023 10:07 AM CDT 2022-12-05 Formatting of this note might be differe nt from the original. Ronal Henry [facility] 10:18:29-00:00 Lab results received from [facility]. Placed in provide r's box. Electronically signed by Ronal Henry at 10:18 AM T 2022-12-05 Formatting of this note might be differe nt from the original. Ronal Henry [facility] 08:55:21-00:00 Forms received from [facility]. Placed in provider's nate x. Electronically signed by Ronal Henry at 8:56 AM CDT 2022-11-30 Formatting of this note might be differe nt from the original. Sapna Klein RN [facility] 15:51:03-00:00 Spoke with [facility], continue current dosage Warfarin 2mg 3 days a week and 1mg 4 days a week Repeat INR in 1weeks, Verbalized understanding 2022-11-30 Formatting of this note might be differe nt from the original. Lorena Rogers MA [facility] 15:47:12-00:00 Called patient for results p atient verbalized understanding with no further questions. Reason for anticoagulation with Coumadin: PAF/AV R Home dose of Coumadin: Currently on Coumadin 2 mg 3 days a week and 1 m g 4 days a week. Goal INR 2.5-3.5. INR monitoring: Via [facility] lab INR is 3.5--11/30/2022 Reduce warfarin to 2 mg 2 da ys a week Saturday and , and 1 mg 5 days a week. Patient to repeat INR in 1 week. Results informed via staff. Electronically signed by Lorena Rogers MA a t 11/30/2022 3:48 PM CDT 2022-11-[address] [facility] 15:44:53-00:00 Please see office visit on November 30 for instruc tions Electronically signed by Jamaica Dan MD at 3:45 PM CDT 2022-11-30 Formatting of this note might be differe nt from the original. Sapna Klein RN [facility] 14:28:01-00:00 INR 3.5 Current dosage 2mg x 3 days 1mg x [address] Dan for advice 2022-11-30 Formatting of this note might be differe nt from the original. Susan Seymour [facility] 14:05:23-00:00 Emanuel Price is a 67 year old female Malvin Johansen Nurse calling stating [facility] IRN was elevated at 3.5 and they would like to have new orders and a call back from nurse to advise. Thank you 2022-11-26 Formatting of this note might be differe nt from the original. Viviane Yang RN [facility] 16:19:26-00:00 [facility] health called [facility] when they need to recheck patient's INR. Discussed with Dr. Dan who r ecommended that patient's INR be rechecked in 5 days. Patient previously on 2 mg 4 days and 1 mg on 3 days of the week prior to hospitalization. She was told at discharge to start warfarin at 1 mg daily. Patient resumed warfarin [address] Dan recommended that pat ient decrease dose from previous and start taking 2 mg on 3 days and 1 mg on 4 days. Patient notified, she verbalized understanding via teach back. Electronically signed by Viviane Yang RN at 4:24 PM CDT 2022-11-[address] [facility] 08:45:38-00:00 Ok thanks Electronically signed by Jamaica Dan MD at 8:45 AM CDT 2022-11-[address] [facility] 08:14:56-00:00 Please see other encounter 11/25/22. Electronically signed by Viviane Yang RN at 8:15 AM CDT 2022-11-26 Formatting of this note might be differe nt from the original. Viviane Yang RN [facility] 08:10:36-00:00 Spoke with [facility] Home health RN Sheela and with [place] [address] was 1.5 Patient states she restarted her warfarin on 11/13 07/05 and too 2 mg last night. Her dose prior to hospital a dmission was 1 mg on 3 days and 2 mg on 4 days of the week. [facility] states they will be rech ecking patient's INR temporarily until it stabilizes. [facility] phone # is . Routing to Dr. Dan. Electronically signed by Viviane Yang RN at 8:14 AM T 2022-11-25 Formatting of this note might be differe nt from the original. Birgit Licea [facility] 09:58:57-00:00 Emanuel Price is a 67 year old female Nurse is calling to provide Lab work results to the Dr.Please call her Electronically signed by Birgit Licea at 023 10:01 AM T 2022-11-[address] [facility] 23:09:08-00:00 If INR was 5.43 on November 22 , she should not start warfarin on November 24. She can start warfarin once INR is below 3. Please find out if patient already started warfarin. INR on November 26. Electronically signed by Jamaica Dan MD at 11:10 PM T 2022-11-[address] [facility] 09:47:04-00:00 [facility] records received placed in Dr. Dan's folder Electronically signed by Viviane aYng RN at 9:47 AM T 2022-11-[address] [facility] 17:03:35-00:00 Home health nurse calling to notify that patient was just discharged from [facility] today. She was discharged with orders for home health to do her INR checks. She states they are needing an o rder for INR checks. They we re instructed to repeat her INR in 72 hours from today. states patient's most recent INR was 5.43. Patient currently holding wa rfarin. She was instructed in discharge paper work to resume warfarin at 1 mg daily starting on 11/24/22. Orders for INR checks can be faxed to Attn: Shandra [facility] is going to fax [facility] records to for Dr. Dan to review. Orders for INR checks faxed to [facility] so that they can perform INR checks on patient. Request that results be faxed to Dr. Dan for review. Electronically signed by Viviane Yang RN at 8:26 AM CDT 2022-11-22 Formatting of this note might be differe nt from the original. Noa Yen [facility] 16:57:55-00:00 Emanuel Price is a 67 year old female Maryuri with [facility] is calling requesting t o speak with nurse regarding Coumadin. She states that patient was admitted and released from [facility] a couple of days ago. PTNR 2 - 3 Thanks! Electronically signed by Noa Yen at 01/2023 5:00 PM CDT 2022-11-12 Formatting of this note might be differe nt from the original. Lorena Rogers MA [facility] 13:38:22-00:00 Received office notes from [facility] will put on Dr. Dan desk for review. Electronically signed by Lorena Rogers MA a t 11/12/2022 1:42 PM CDT"
[2022-12-11] MEDS ORDERED: HYDROCODONE/APAP 5/325 MG TAB ONE (02:31)
--- NOTE | 2022-12-11 02:34 | EDPHYS ---
Physician Documentation [facility] Name: Michelle Saavedra Age: 67 yrs Sex: Female : 1955 Arrival Date: 12/10/2022 Time: 22:45 Bed 13 Private MD: ED Physician Gab Del Real HPI: 12/11 01:38 This 67 yrs old Female presents to ER via Wheelchair with complaints of Fall kb Injury. 01:38 Details of fall: The patient fell from an upright position, while walking, pt reports kb she tripped and fell onto right side, hitting head as well. Onset: The symptoms/episode began/occurred just prior to arrival. Associated injuries: The patient sustained injury to the head, pain, right forearm, contusion, painful injury, right hip, abrasion, painful injury. Severity of symptoms: At their worst the symptoms were mild, moderate, in the emergency department the symptoms are unchanged. The patient has not experienced similar symptoms in the past. The patient has not recently seen a physician. Historical: - Allergies: 12/10 23:02 Morphine; cm10 - Home Meds: 23:02 Warfarin Oral [Active]; cm10 - PMHx: 23:02 Atrial fibrillation; Hypercholesterolemia; Hypertensive disorder; mechanical valve; cm10 - Immunization history:: Adult Immunizations unknown. - Social history:: Smoking status: Patient denies any tobacco usage or history of. ROS: 12/11 01:37 Constitutional: Negative for fever, chills, and weight loss. kb MS/extremity: Positive for pain, of the right hip and right forearm. Neuro: Positive for headache. All other systems are negative. Exam: 01:37 Constitutional: This is a well developed, well nourished patient who is awake, alert, kb and in no acute distress. Head/Face: Normocephalic, atraumatic. ENT: Moist Mucous membranes Cardiovascular: Regular rate and rhythm with a normal S1 and S2. No gallops, murmurs, or rubs. No pulse deficits. Respiratory: Respirations even and unlabored. No increased work of breathing. Talking in full sentences Abdomen/GI: Soft, non-tender. No distention MS/ Extremity: Pulses equal, no cyanosis. Neurovascular intact. Full, normal range of motion. Neuro: Awake and alert, GCS 15, oriented to person, place, time, and situation. Moves all extremities. Normal gait. 01:37 Skin: injury, abrasion(s), small abrasion noted, moderate sized abrasion noted, of the right hip, contusion(s), that are superficial, of the right forearm. 02:34 ECG was reviewed by the Attending Physician. kb Vital Signs: 12/10 22:59 BP 151 / 54; Pulse 53; Resp 16; Temp 96.5; Pulse Ox 100% ; Weight 45.81 kg; Height 5 cm10 ft. 3 in. ; 23:00 BP 170 / 55; Pulse 55; Resp 18 S; Pulse Ox 100% on R/A; jw7 12/11 00:00 BP 136 / 45; Pulse 46; Resp 17 S; Pulse Ox 98% on R/A; jw7 12/10 22:59 Body Mass Index 17.89 (45.81 kg, 160.02 cm) cm10 MDM: 12/10 23:00 Patient medically screened. kb 12/11 01:38 Differential diagnosis: abrasion, closed head injury, contusion, fracture. Data kb reviewed: vital signs, nurses notes. 01:55 ED course: Pt educated on diagnostics and need for follow up with PCP. Pt states she kb needs an EKG before she leaves because that is always the first thing they do when she comes in. . 02:33 Counseling: I had a detailed discussion with the patient and/or guardian regarding the kb historical points, exam findings, and any diagnostic results supporting the discharge/admit diagnosis, radiology results, the need for outpatient follow up, a family practitioner, to return to the emergency department if symptoms worsen or persist or if there are any questions or concerns that arise at home. 12/10 23:09 Order name: CT Head C Spine 12/10 23:09 Order name: Hip Right 2 View XRAY 12/11 01:27 Order name: EKG; Complete Time: :27 kb 12/11 01:27 Order name: EKG - Nurse/Tech; Complete Time: 02:35 kb EC:34 Rate is 53 beats/min. Rhythm is regular. QRS [place] is Normal. CT interval is prolonged kb at 220 msec. QRS interval is normal at 104 msec. QT interval is normal at 461 msec. Administered Medications: 02:35 Drug: HYDROcodone-acetaminophen PO 5 mg-325 mg 1 tabs Route: PO; jw7 02:51 Follow up: Response: No adverse reaction jw7 Disposition Summary: 12/11/22 02:34 Discharge Ordered Location: Home kb Condition: Stable kb Diagnosis - Fall on same level from slipping, tripping and stumbling without subsequent kb striking against object - Unspecified injury of head, initial encounter kb - Pain in right hip kb Followup: kb - With: Emergency Department - When: As needed - Reason: Worsening of condition Followup: kb - With: Private Physician - When: 2 - 3 days - Reason: Recheck today's complaints, Continuance of care, Re-evaluation by your physician Discharge Instructions: - Discharge Summary Sheet kb - Musculoskeletal Pain kb - Head Injury, Adult, [id number] kb Forms: - Medication Reconciliation Form kb - Thank You Letter kb - Antibiotic Education kb - Prescription Opioid Use kb - Patient Portal Instructions kb - Leadership Thank You Letter kb Signatures: Dispatcher [employer] Zahida Rahman, [employer]-Rekha Traore RN RN jw7 Tamie Villalobos RN RN cm10
--- NOTE | 2022-12-11 02:34 | ER ---
Nurse's Notes [facility] Name: Michelle Saavedra Age: 67 yrs Sex: Female : 1955 Arrival Date: 12/10/2022 Time: 22:45 Bed 13 Private MD: Diagnosis: Fall on same level from slipping, tripping and stumbling without subsequent striking against object;Unspecified injury of head, initial encounter;Pain in right hip Presentation: 12/10 22:59 Chief complaint: Patient states: falling 1.5hrs [employer]. Pt states that she was walking and cm10 she fell. Does not know how she fell. Pt reports pain to the right side of her body, bruise noted to right wrist. Pt reports hitting her head, no LOC. Pt reports taking Coumadin. Coronavirus screen: Vaccine status: Patient reports being unvaccinated. Ebola Screen: Patient denies travel to an Ebola-affected area in the 21 days before illness onset. No symptoms or risks identified at this time. Initial Sepsis Screen: Does the patient meet any 2 criteria? No. Patient's initial sepsis screen is negative. Does the patient have a suspected source of infection? No. Patient's initial sepsis screen is negative. Risk Assessment: Do you want to hurt yourself or someone else? Patient reports no desire to harm self or others. Onset of symptoms was December 10, 2022. 22:59 Method Of Arrival: Wheelchair cm10 22:59 Acuity: JAKUB 3 cm10 Triage Assessment: 23:00 General: Appears in no apparent distress. uncomfortable, Behavior is calm, cooperative. jw7 Pain: Complains of pain in right hip Pain does not radiate. Pain currently is 7 out of 10 on a pain scale. 23:00 EENT: No deficits noted. No signs and/or symptoms were reported regarding the EENT jw7 system. Neuro: No deficits noted. Whitney Agitation-Sedation Scale (RASS): 0 - Alert and Calm Level of Consciousness is awake, alert, obeys commands, Oriented to person, place, time, situation. Cardiovascular: No deficits noted. Capillary refill < 3 seconds Clubbing of nail beds is absent JVD is absent Patient's skin is warm and dry. Respiratory: No deficits noted. Airway is patent Trachea midline Respiratory effort is even, unlabored, Respiratory pattern is regular, symmetrical. GI: No deficits noted. No signs and/or symptoms were reported involving the gastrointestinal system. Abdomen is flat, non-distended. : No deficits noted. No signs and/or symptoms were reported regarding the genitourinary system. Derm: Skin is healthy with good turgor, is fragile, Skin is dry, Skin is normal, Skin temperature is warm Wound noted right hip Wound is small abrasion to right hip due to fall. Musculoskeletal: No deficits noted. No signs and/or symptoms reported regarding the musculoskeletal system. Circulation, motion, and sensation intact. Range of motion: intact in all extremities. Historical: - Allergies: 23:02 Morphine; cm10 - Home Meds: 23:02 Warfarin Oral [Active]; cm10 - PMHx: 23:02 Atrial fibrillation; Hypercholesterolemia; Hypertensive disorder; mechanical valve; cm10 - Immunization history:: Adult Immunizations unknown. - Social history:: Smoking status: Patient denies any tobacco usage or history of. Screenin/29 01:40 [facility] ED Fall Risk Assessment (Adult) History of falling in the last 3 months, jw7 including since admission Yes- single mechanical fall (1 pt) Confusion or Disorientation No (0 pts) Intoxicated or Sedated No (0 pts) Impaired Gait Yes (1 pt) Mobility Assist Device Used No (0 pt) Altered Elimination No (0 pt) Score/Fall Risk Level 0 - 2 = Low Risk Oriented to surroundings, Maintained a safe environment. Abuse screen: Denies threats or abuse. Denies injuries from another. Nutritional screening: No deficits noted. Tuberculosis screening: No symptoms or risk factors identified. Assessment: 12/10 23:00 General: see triage assessment. jw7 12/11 00:00 Reassessment: Patient appears in no apparent distress at this time. No changes from jw7 previously documented assessment. Patient and/or family updated on plan of care and expected duration. Pain level reassessed. Patient is alert, oriented x 3, equal unlabored respirations, skin warm/dry/pink. 01:00 Reassessment: Patient appears in no apparent distress at this time. No changes from jw7 previously documented assessment. Patient and/or family updated on plan of care and expected duration. Pain level reassessed. Patient is alert, oriented x 3, equal unlabored respirations, skin warm/dry/pink. 02:35 Reassessment: Patient appears in no apparent distress at this time. No changes from jw7 previously documented assessment. Patient and/or family updated on plan of care and expected duration. Pain level reassessed. Patient is alert, oriented x 3, equal unlabored respirations, skin warm/dry/pink. Vital Signs: 12/10 22:59 BP 151 / 54; Pulse 53; Resp 16; Temp 96.5; Pulse Ox 100% ; Weight 45.81 kg; Height 5 cm10 ft. 3 in. ; 23:00 BP 170 / 55; Pulse 55; Resp 18 S; Pulse Ox 100% on R/A; jw7 12/11 00:00 BP 136 / 45; Pulse 46; Resp 17 S; Pulse Ox 98% on R/A; jw7 12/10 22:59 Body Mass Index 17.89 (45.81 kg, 160.02 cm) cm10 ED Course: 12/10 22:49 Patient arrived in ED. kj1 22:58 Rekha Marin, PHILLIP is Primary Nurse. jw7 23:00 Zahida Espinal FNP-C [facility]. kb 23:00 Gab Del Real MD is Attending Physician. kb 23:02 Triage completed. cm10 23:02 Arm band placed on Patient placed in an exam room, on a stretcher. cm10 23:40 Hip Right 2 View XRAY In Process Unspecified. EDMS 12/11 01:02 CT Head C Spine In Process Unspecified. EDMS 01:43 Patient has correct armband on for positive identification. Bed in low position. Call jw7 light in reach. Side rails up X 1. 02:50 Provided Education on: discharge instructions. jw7 02:50 No provider procedures requiring assistance completed. Patient did not have IV access jw7 during this emergency room visit. Administered Medications: 02:35 Drug: HYDROcodone-acetaminophen PO 5 mg-325 mg 1 tabs Route: PO; jw7 02:51 Follow up: Response: No adverse reaction jw7 Medication: 02:51 VIS not applicable for this client. jw7 Outcome: 02:34 Discharge ordered by . kb 02:50 Discharged to home via wheelchair. jw7 02:50 Condition: stable 02:50 Discharge instructions given to patient, Instructed on discharge instructions, follow up and referral plans. Demonstrated understanding of instructions, follow-up care. 02:51 Patient left the ED. jw7 Signatures: Dispatcher [employer] Zahida Rahman, HEMANT-C HEMANT-Judy Abdi kj1 Rekha Marin, RN RN jw7 Tamie Villalobos RN RN cm10
[2022-12-11 03:57] VITALS: TEMP 96.5
[2022-12-11 03:59] VITALS: BP 136/45; O2SAT 98
--- NOTE | 2022-12-11 16:27 | EKG ---
Test Date: 2022-12-11 Test Time: 02:31:34 Produce Specialist: DORENE MEASUREMENT RESULTS: Intervals: Rate: 53 ID: [id number] QRSD: 104 QT: 492 QTc: 461 [place]: P: 85 ID: [id number] QRS: 69 T: 79 INTERPRETIVE STATEMENTS: Sinus bradycardia with 1st degree AV block Otherwise normal ECG Compared to ECG 11/20/2022 21:17:28 First degree AV block now present Atrial premature complex(es) no longer present ST (T wave) deviation no longer present Electronically Signed On 12-11-22 16:25:25 CDT by Jam Bolanos
--- NOTE | 2022-12-11 17:24 | RAD REPORT ---
EXAM DESCRIPTION: RAD - Hip Right 2 View - 12/10/2022 11:38 pm CLINICAL HISTORY: 67 years Female PAIN Hip Right 2 View TECHNIQUE: 2 x-ray views of the right hip were performed on 12/10/2022 at 11:28 PM. COMPARISON: CT abdomen and pelvis performed on 01/19/2020 FINDINGS: There is no evidence of acute fracture or dislocation. There is moderate narrowing of the right hip joint and there is associated subchondral sclerosis and hypertrophic spurring as well as guo bchondral cyst formation consistent with osteoarthritis. No pathologic bone lesions are identified. Bone mineralization is normal. No acute soft tissue abnormalities are identified. Occasional arterial vascular calcifications are no bandar. IMPRESSION: No evidence of acute osseous injury involving the right hip. There is moderate osteoarth ritis of the right hip joint. Electronically signed by: Krystal Sherman DO 12/10/2022 11:58 PM CDT Due to temporary technical issues with the PACS/Fluency reporting system, reports are being signed by the in house radiologists without review as a courtesy to insure prompt reporting. The interpreting radiologist is fully responsible for the content of the report.
--- NOTE | 2022-12-11 17:50 | RAD REPORT ---
EXAM DESCRIPTION: CT - Head C Spine Mpr Wo Con - 12/11/2022 6:55 am CLINICAL HISTORY: The patient is 67 years old and is Female; PAIN TECHNIQUE: Axial computed tomography images of the head/brain and cervical spine without intravenous contrast. Sagittal and coronal reformatted images were created and reviewed. This CT exam was pe rformed using one or more of the following dose reduction techniques: automated exposure control, a djustment of the mA and/or kV according to patient size, and/or use of iterative reconstruction techn ique. DLP: 964 mGy*cm COMPARISON: CT head without contrast dated 05/13/2022. FINDINGS: BRAIN: Cerebral volume loss and chronic small vessel ischemic changes. No hemorrhage. VENTRICLES: Unremarkable. No acute hemorrhage, hydrocephalus or herniation. SKULL: No acute fracture. SINUSES: Unremarkable as visualized. No acute sinusitis. MASTOID AIR CELLS: Unremarkable as visualized. No mastoid effusion. VERTEBRAE: Straightening of the cervical lordosis. Mid cervical discopathy loss with associated spondylosis. No acute fracture. DISCS/SPINAL CANAL/NEURAL FORAMINA: See above. SOFT TISSUES: Unremarkable. VASCULATURE: Atherosclerotic disease. IMPRESSION: 1. No acute hemorrhage, hydrocephalus or herniation. 2. No acute cervical spine fracture or subluxation. 3. Straightening of the cervical lordosis. Findings may be positional or due to muscle spasm. 4. Cerebral volume loss and chronic small vessel ischemic changes. Consider MRI brain for further evaluation. 5. Mid cervical degenerative changes. Electronically signed by: Gregorio Live DO 12/11/2022 1:21 AM CDT Due to temporary technical issues with the PACS/Fluency reporting system, reports are being signed by the in house radiologists without review as a courtesy to insure prompt reporting. The interpreting radiologist is fully responsible for the content of the report.
== END 2022-12-11 02:51 | disposition home or self-care (01) ==
LOC: ER 22:45
DX: S09.90XA Unspecified injury of head, initial encounter (principal); M25.551 Pain in right hip; W01.0XXA Fall on same level from slipping, tripping and stumbling without subsequent striking against object, initial encounter; I10 Essential (primary) hypertension; I48.91 Unspecified atrial fibrillation; Z79.01 Long term (current) use of anticoagulants; Z88.5 Allergy status to narcotic agent
CPT/HCPCS: 70450; 72125; 93005

== ENCOUNTER 2022-12-27 23:55 | Emergency (ER) | payer OTHER ==
--- OUTSIDE RECORDS SUMMARY | 2022-12-28 00:16 | XMS REPORT | Continuity of Care Document ---
:1955 Author Organization [facility] t Address [address] [facility] [place] [address] Care Team Providers Name Role Phone DANIEL IBRAHIM Primary Care Physician Unavailable DANIEL IBRAHIM Attending Clinician Unavailable Saurabh Dobson Attending Clinician Unavailable MARIIA CARDONA Attending Clinician Unavailable MARIIA CARDONA Attending Clinician Unavailable REBECA HOLCOMB Attending Clinician Unavailable REBECA [place] Attending Clinician Unavailable AAKASH KOROMA Attending Clinician Unavailable AAKASH KOROMA Attending Clinician Unavailable JAMAICA DAN Attending Clinician Unavailable Doctor Unassigned, [place] Attending Clinician Unavailable [place] Dan MD Attending Clinician WAYNE RABAGO Attending Clinician Unavailable Pob, [facility] Attending Clinician Unavailable Yolande Santacruz MD Attending Clinician JOSEPH CORTES Attending Clinician Unavailable Joseph Cortes MD Attending Clinician Jeremy Mulligan RN Attending Clinician Unavailable Hima LOVELL, Wayne Attending Clinician Santos LOVELL, Sean Granda Attending Clinician [phone] Vinayak Cook MD Attending Clinician Lynnette LOVELL, Shadi Jhaveri Attending Clinician [phone] Latasha LOVELL, Franc Calles Attending Clinician [...] Clinician Jennifer Lo MD Attending Clinician ALISHA MCDOWELL.Felipa Attending Clinician Unavailable NICK IZQUIERDO Attending Clinician [...] Number Effective Date Expiration Date Judi alfonso [facility] DUAL [id number] 2020 COMP HMO D SNP 00:00:00 [facility] [id number] 2013 PLUS 00:00:00 [place] [id number] 2022 00:00:00 Problems Condition Condition Condition Status Onset Resolution Last Treating Co mments Source Name Details Category Date Date Treatment Clinician Date 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 00:00: [place] with with 00 Medical preserved preserved Bran [...] 8-11 it y of on on 00:00: [place] 00 Medical Branch E44.0 E44.0 Disease Active 2020-04 Univers Moderate Moderate 1-19 ity of protein protein 00:00: [place] calorie calorie 00 Medical malnutriti malnutriti Br anch on on Other Other Disease Active 2020-04 Univers chest pain chest pain 1-19 it y of 00:00: [place] 00 Medical Branch Chest pain Chest pain Disease Active 2020-04 U nivers 1-17 ity of 00:00: [place] 00 Medical Branch Elevated Elevated Disease Active [...] 8-20 it y of emia emia 00:00: [place] 00 Medical Branch Essential Essential Disease Active Uni vers hypertensi hypertensi 8-20 it y of on on 00:00: [place] [facility] Anticoagul Anticoagul Disease Active U nivers ated ated 8-20 ity of 00:00: [place] 00 Medical Branch Coronary Coronary Disease Active Unive rs artery artery 8-20 ity of disease disease 00:00: [place] involving involving 00 Medi tyrone diomede diomede Branch coronary coronary artery of artery of diomede diomede 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 8-20 ity of disease disease 00:00: [place] involving involving 00 Medi tyrone diomede diomede Branch coronary coronary artery of artery of diomede diomede 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 2-20 ity of disease disease 00:00: [place] involving involving 00 Medi tyrone diomede diomede Branch heart heart without without angina angina [...] Diabetes [facility] Natural mother Heart [facility] Other Diabetes [facility] Natural sister Cancer [facility] Natural sister Diabetes [facility] Social History Social Habit Start Date Stop Date Quantity Comments Source History SDOH Social Unive rsity of Connections [facility] Med ical Together Branch History SDOH Social Unive rsity of Connections [facility] Medical Branch History SDOH Social Unive rsity of Connections [place] [facility] Membership Branch History SDOH Social Unive rsity of Connections [place] Medical Meetings Branch Gender identity [facility] Sexual orientation Univer [facility] Exposure to 2022-08-18 2022-08-28 Not sure University of SARS-CoV-2 (event) 00:00:00 12:47:00 [place] [facility] History SDOH 2022-06-07 2022-06-07 1 University o f Alcohol Frequency 00:00:00 00:00:[facility] History SDOH 2022-06-07 2022-06-07 0 University o f Alcohol Std Drinks 00:00:00 00:00:00 [place] [facility] History SDOH 2022-06-07 2022-06-07 1 University o f Alcohol Binge 00:00:00 00:00:00 [place] [facility] History SDOH Social 2022-06-07 2022-06-07 5 Unive rsity of Connections Phone 00:00:00 00:00:00 [place] M edical Branch History SDOH Social 2022-06-07 2022-06-07 4 Unive rsity of Connections Living 00:00:00 00:00:00 [place] [facility] History SDOH 2022-06-07 2022-06-07 0 University o f Physical Activity 00:00:00 00:00:[facility] DPW Branch History SDMD 2022-06-07 2022-06-07 0 University o f Physical Activity 00:00:00 00:00:00 [facility] MPS Branch History SDMD 2022-06-07 2022-06-07 5 University o f Financial 00:00:00 00:00:00 [place] [facility] History SDMD Food 2022-06-07 2022-06-07 1 Univers ity of Worry 00:00:00 00:00:00 [place] [facility] History SDOH Food 2022-06-07 2022-06-07 1 Univers ity of Scarcity 00:00:00 00:00:00 [place] [facility] History SDMD 2022-06-07 2022-06-07 2 University o f Transport Med 00:00:00 00:00:00 [place] Medic al Branch History [facility] 2022-06-07 2022-06-07 2 University o f Transport Non-Med 00:00:00 00:00:00 [facility] Education 2022-06-06 2022-06-06 14 University of 00:00:00 00:00:00 [facility] Tobacco use and 2022-05-19 2022-05-[address] [facility] exposure 00:00:00 00:00:00 tobacco non-user [facility] Alcohol intake 2022-05-19 2022-05-19 Ex-drinker [facility] 00:00:00 00:00:00 (finding) Medical Center History [facility] 2022-05-18 2022-05-[address] [facility] Unable to 00:00:00 00:00:00 Medical Center Pay History [facility] 2022-05-18 2022-05-[address] [facility] Places 00:00:00 00:00:00 Medical Ce nter Lived History [facility] 2022-05-18 2022-05-[address] [facility] Homeless 00:00:00 00:00:00 Medical Center Last Year History of Social 2021-02-27 2021-02-27 Univers ity of function 00:00:00 00:00:00 [place] [facility] Sex Assigned At 1955 [address] [facility] cheema 00:00:00 00:00:00 [facility] Center Smoking Status Start Date Stop Date Source Never smoked tobacco [facility] Medications Ordered Filled Start Stop Current Ordering Indication Dosage Frequency Signature Comments Components Source Medication Medication Date Date Medication? Clinician (SIG) Name Name warfarin 1 Yes [id number] 2mg Un chong mg tablet 12-20 3x/week ity of 00:00: 1mg 4x/week Medical Branch warfarin 1 Yes [id number] 2mg Un chong mg tablet 12-20 3x/week ity of 00:00: 1mg 4x/week Medical Branch atorvastati Yes 80mg Take 1 Univ ers n 80 mg 7-12 tablet by ity of tablet 00:00: mouth at [place] [address] bedtime. Medical Branch atorvastati 0 Yes 80mg Take 1 Univ ers n 80 mg 7-12 tablet by ity of tablet 00:00: mouth at [place] [address] bedtime. Medical Branch atorvastati 0 Yes 80mg Take 1 Univ ers n 80 mg 7-12 tablet by ity of tablet 00:00: mouth at [place] [address] bedtime. Medical Branch atorvastati 0 Yes 80mg Take 1 Univ ers n 80 mg 7-12 tablet by ity of tablet 00:00: mouth at [place] [address] bedtime. Medical Branch atorvastati 2022-0 Yes 80mg Take 1 Univ ers n 80 mg 7-12 tablet by ity of tablet 00:00: mouth at [place] [address] bedtime. Medical Branch atorvastati 2022-0 Yes 80mg Take 1 Univ ers n 80 mg 7-12 tablet by ity of tablet 00:00: mouth at [place] [address] bedtime. Medical Branch atorvastati 2022-0 Yes 80mg Take 1 Univ ers n 80 mg 7-12 tablet by ity of tablet 00:00: mouth at [place] [address] bedtime. Medical Branch atorvastati 0 Yes 80mg Take 1 Univ ers n 80 mg 7-12 tablet by ity of tablet 00:00: mouth at [place] [address] bedtime. Medical Branch atorvastati 2022-0 Yes 80mg Take 1 Univ ers n 80 mg 7-12 tablet by ity of tablet 00:00: mouth at [place] [address] bedtime. Medical Branch atorvastati 2023-0 Yes 80mg Take 1 Univ ers n 80 mg 7-12 tablet by ity of tablet 00:00: mouth at [place] [address] bedtime. Medical Branch atorvastati 3-0 Yes 80mg Take 1 Univ ers n 80 mg 7-12 tablet by ity of tablet 00:00: mouth at [place] [address] bedtime. Medical Branch atorvastati 3-0 Yes 80mg Take 1 Univ ers n 80 mg 7-12 tablet by ity of tablet 00:00: mouth at [place] [address] bedtime. Medical Branch atorvastati 3-0 Yes 80mg Take 1 Univ ers n 80 mg 7-12 tablet by ity of tablet 00:00: mouth at [place] [address] bedtime. Medical Branch atorvastati 3-0 Yes 80mg Take 1 Univ ers n 80 mg 7-12 tablet by ity of tablet 00:00: mouth at [place] [address] bedtime. Medical Branch atorvastati 3-0 Yes 80mg Take 1 Univ ers n 80 mg 7-12 tablet by ity of tablet 00:00: mouth at [place] [address] bedtime. Medical Branch atorvastati 3-0 Yes 80mg Take 1 Univ ers n 80 mg 7-12 tablet by ity of tablet 00:00: mouth at [place] [address] bedtime. Medical Branch atorvastati 3-0 Yes 80mg Take 1 Univ ers n 80 mg 7-12 tablet by ity of tablet 00:00: mouth at [place] [address] bedtime. Medical Branch atorvastati 3-0 Yes 80mg Take 1 Univ ers n 80 mg 7-12 tablet by ity of tablet 00:00: mouth at [place] [address] bedtime. Medical Branch atorvastati 3-0 Yes 80mg Take 1 Univ ers n 80 mg 7-12 tablet by ity of tablet 00:00: mouth at [place] [address] bedtime. Medical Branch atorvastati 2023-0 Yes 80mg Take 1 Univ ers n 80 mg 7-12 tablet by ity of tablet 00:00: mouth at [place] [address] bedtime. Medical Branch atorvastati 2023-0 Yes 80mg Take 1 Univ ers n 80 mg 7-12 tablet by ity of tablet 00:00: mouth at [place] [address] bedtime. Medical Branch atorvastati 2023-0 Yes 80mg Take 1 Univ ers n 80 mg 7-12 tablet by ity of tablet 00:00: mouth at [place] [address] bedtime. Medical Branch atorvastati 2022-0 Yes 80mg Take 1 Univ ers n 80 mg 7-12 tablet by ity of tablet 00:00: mouth at [place] [address] bedtime. Medical Branch atorvastati 2022-0 Yes 80mg Take 1 Univ ers n 80 mg 7-12 tablet by ity of tablet 00:00: mouth at [place] bedtime. Medical Branch atorvastati 2022-0 Yes 80mg Take 1 Univ ers n 80 mg 7-12 tablet by ity of tablet 00:00: mouth at [place] [address] bedtime. Medical Branch atorvastati 2022-0 Yes 80mg Take 1 Univ ers n 80 mg 7-12 tablet by ity of tablet 00:00: mouth at [place] [address] bedtime. Medical Branch atorvastati 2022-0 Yes 80mg Take 1 Univ ers n 80 mg 7-12 tablet by ity of tablet 00:00: mouth at [place] [address] bedtime. Medical Branch atorvastati 2022-0 Yes 80mg Take 1 Univ ers n 80 mg 7-12 tablet by ity of tablet 00:00: mouth at [place] [address] bedtime. Medical Branch atorvastati 2022-0 Yes 80mg Take 1 Univ ers n 80 mg 7-12 tablet by ity of tablet 00:00: mouth at [place] [address] bedtime. Medical Branch atorvastati 2022-0 Yes 80mg Take 1 Univ ers n 80 mg 7-12 tablet by ity of tablet 00:00: mouth at [place] [address] bedtime. Medical Branch atorvastati 2022-0 Yes 80mg Take 1 Univ ers n 80 mg 7-12 tablet by ity of tablet 00:00: mouth at [place] [address] bedtime. Medical Branch warfarin 1 0 Yes [id number] 2mg Take 2 Univers mg tablet 7-07 tablets by ity of 00:00: mouth [place] every Medical evening. Branch Take 1mg x3 days, then 2mg x 4 days warfarin 1 2022-0 Yes [id number] 2mg Take 2 Univers mg tablet 7-07 tablets by ity of 00:00: mouth [place] 00 every Medical evening. Branch Take 1mg x3 days, then 2mg x 4 days warfarin 1 2022-0 Yes [id number] 2mg Take 2 Univers mg tablet 7-07 tablets by ity of 00:00: mouth [place] 00 every Medical evening. Branch Take 1mg x3 days, then 2mg x 4 days warfarin Yes [id number] 2mg Take 2 Univers mg tablet 7-07 tablets by ity of 00:00: mouth [place] 00 every Medical evening. Branch Take 1mg x3 days, then 2mg x 4 days warfarin Yes [id number] 2mg Take 2 Univers mg tablet 7-07 tablets by ity of 00:00: mouth [place] 00 every Medical evening. Branch Take 1mg x3 days, then 2mg x 4 days warfarin Yes [id number] 2mg Take 2 Univers mg tablet 7-07 tablets by ity of 00:00: mouth [place] 00 every Medical evening. Branch Take 1mg x3 days, then 2mg x 4 days warfarin Yes [id number] 2mg Take 2 Univers mg tablet 7-07 tablets by ity of 00:00: mouth [place] 00 every Medical evening. Branch Take 1mg x3 days, then 2mg x 4 days warfarin Yes [id number] 2mg Take 2 Univers mg tablet 7-07 tablets by ity of 00:00: mouth [place] 00 every Medical evening. Branch Take 1mg x3 days, then 2mg x 4 days warfarin Yes [id number] 2mg Take 2 Univers mg tablet 7-07 tablets by ity of 00:00: mouth [place] 00 every Medical evening. Branch Take 1mg x3 days, then 2mg x 4 days warfarin Yes [id number] 2mg Take 2 Univers mg tablet 7-07 tablets by ity of 00:00: mouth [place] 00 every Medical evening. Branch Take 1mg x3 days, then 2mg x 4 days warfarin Yes [id number] 2mg Take 2 Univers mg tablet 7-07 tablets by ity of 00:00: mouth [place] 00 every Medical evening. Branch Take 1mg x3 days, then 2mg x 4 days warfarin Yes [id number] 2mg Take 2 Univers mg tablet 7-07 tablets by ity of 00:00: mouth [place] 00 every Medical evening. Branch Take 1mg x3 days, then 2mg x 4 days warfarin 0 Yes [id number] 2mg Take 2 Univers mg tablet 7-07 tablets by ity of 00:00: mouth [place] 00 every Medical evening. Branch Take 1mg x3 days, then 2mg x 4 days warfarin 0 Yes [id number] 2mg Take 2 Univers mg tablet 7-07 tablets by ity of 00:00: mouth [place] 00 every Medical evening. Branch Take 1mg x3 days, then 2mg x 4 days warfarin 0 Yes [id number] 2mg Take 2 Univers mg tablet 7-07 tablets by ity of 00:00: mouth [place] 00 every Medical evening. Branch Take 1mg x3 days, then 2mg x 4 days warfarin Yes [id number] 2mg Take 2 Univers mg tablet 7-07 tablets by ity of 00:00: mouth [place] 00 every Medical evening. Branch Take 1mg x3 days, then 2mg x 4 days warfarin Yes [id number] 2mg Take 2 Univers mg tablet 7-07 tablets by ity of 00:00: mouth [place] 00 every Medical evening. Branch Take 1mg x3 days, then 2mg x 4 days warfarin Yes [id number] 2mg Take 2 Univers mg tablet 7-07 tablets by ity of 00:00: mouth [place] 00 every Medical evening. Branch Take 1mg x3 days, then 2mg x 4 days warfarin 0 Yes [id number] 2mg Take 2 Univers mg tablet 7-07 tablets by ity of 00:00: mouth [place] 00 every Medical evening. Branch Take 1mg x3 days, then 2mg x 4 days warfarin 0 Yes [id number] 2mg Take 2 Univers mg tablet 7-07 tablets by ity of 00:00: mouth [place] 00 every Medical evening. Branch Take 1mg x3 days, then 2mg x 4 days warfarin 0 Yes [id number] 2mg Take 2 Univers mg tablet 7-07 tablets by ity of 00:00: mouth [place] 00 every Medical evening. Branch Take 1mg x3 days, then 2mg x 4 days warfarin 0 Yes [id number] 2mg Take 2 Univers mg tablet 7-07 tablets by ity of 00:00: mouth [place] 00 every Medical evening. Branch Take 1mg x3 days, then 2mg x 4 days warfarin 1 0 Yes [id number] 2mg Take 2 Univers mg tablet 7-07 tablets by ity of 00:00: mouth [place] 00 every Medical evening. Branch Take 1mg x3 days, then 2mg x 4 days warfarin 1 2022-0 Yes [id number] 2mg Take 2 Univers mg tablet 7-07 tablets by ity of 00:00: mouth [place] 00 every Medical evening. Branch Take 1mg x3 days, then 2mg x 4 days warfarin 1 0 Yes [id number] 2mg Take 2 Univers mg tablet 7-07 tablets by ity of 00:00: mouth [place] 00 every Medical evening. Branch Take 1mg x3 days, then 2mg x 4 days warfarin 1 2022-0 Yes [id number] 2mg Take 2 Univers mg tablet 7-07 tablets by ity of 00:00: mouth [place] 00 every Medical evening. Branch Take 1mg x3 days, then 2mg x 4 days warfarin 0 Yes [id number] 2mg Take 2 Univers mg tablet 7-07 tablets by ity of 00:00: mouth [place] 00 every Medical evening. Branch Take 1mg x3 days, then 2mg x 4 days warfarin 0 Yes [id number] 2mg Take 2 Univers mg tablet 7-07 tablets by ity of 00:00: mouth [place] 00 every Medical evening. Branch Take 1mg x3 days, then 2mg x 4 days warfarin 1 2022-0 Yes [id number] 2mg Take 2 Univers mg tablet 7-07 tablets by ity of 00:00: mouth [place] 00 every Medical evening. Branch Take 1mg x3 days, then 2mg x 4 days warfarin 1 2022-0 3- No [id number] 2mg Take 2 Univers mg tablet 7-10 21- tablets by ity of 00:00: 00:00 mouth [place] 00 :00 every Medical evening. Branch Take 1mg x3 days, then 2mg x 4 days warfarin 1 2022-0 2023- No [id number] 2mg Take 2 Univers mg tablet 7-10 21-07 tablets by ity of 00:00: 00:00 mouth [place] 00 :00 every Medical evening. Branch Take 1mg x3 days, then 2mg x 4 days ezetimibe 3-0 Yes [id number] 10mg Take 1 U nivers (ZETIA) 10 4-18 tablet by ity of mg tablet 00:00: mouth [place] the Medical morning. Branch ezetimibe 3-0 Yes [id number] 10mg Take 1 U nivers (ZETIA) 10 4-18 tablet by ity of mg tablet 00:00: [place] the Medical morning. Branch ezetimibe 3-0 Yes [id number] 10mg Take 1 U nivers (ZETIA) 10 4-18 tablet by ity of mg tablet 00:00: [place] the Medical morning. Branch ezetimibe 3-0 Yes [id number] 10mg Take 1 U nivers (ZETIA) 10 4-18 tablet by ity of mg tablet 00:00: [place] the Medical morning. Branch ezetimibe 3-0 Yes [id number] 10mg Take 1 U nivers (ZETIA) 10 4-18 tablet by ity of mg tablet 00:00: [place] the Medical morning. Branch ezetimibe 3-0 Yes [id number] 10mg Take 1 U nivers (ZETIA) 10 4-18 tablet by ity of mg tablet 00:00: [place] the Medical morning. Branch ezetimibe 3-0 Yes [id number] 10mg Take 1 U nivers (ZETIA) 10 4-18 tablet by ity of mg tablet 00:00: [place] the Medical morning. Branch ezetimibe 3-0 Yes [id number] 10mg Take 1 U nivers (ZETIA) 10 4-18 tablet by ity of mg tablet 00:00: [place] the Medical morning. Branch ezetimibe 3-0 Yes [id number] 10mg Take 1 U nivers (ZETIA) 10 4-18 tablet by ity of mg tablet 00:00: [place] the Medical morning. Branch ezetimibe 3-0 Yes [id number] 10mg Take 1 U nivers (ZETIA) 10 4-18 tablet by ity of mg tablet 00:00: [place] the Medical morning. Branch ezetimibe 2023-0 Yes [id number] 10mg Take 1 U nivers (ZETIA) 10 4-18 tablet by ity of mg tablet 00:00: [place] 00 the Medical morning. Branch ezetimibe 2023-0 Yes [id number] 10mg Take 1 U nivers (ZETIA) 10 4-18 tablet by ity of mg tablet 00:00: mouth [place] 00 the Medical morning. Branch ezetimibe 2023-0 Yes [id number] 10mg Take 1 U nivers (ZETIA) 10 4-18 tablet by ity of mg tablet 00:00: [place] 00 the Medical morning. Branch ezetimibe 2023-0 Yes [id number] 10mg Take 1 U nivers (ZETIA) 10 4-18 tablet by ity of mg tablet 00:00: [place] 00 the Medical morning. Branch ezetimibe 2023-0 Yes [id number] 10mg Take 1 U nivers (ZETIA) 10 4-18 tablet by ity of mg tablet 00:00: [place] the Medical morning. Branch ezetimibe 2023-0 Yes [id number] 10mg Take 1 U nivers (ZETIA) 10 4-18 tablet by ity of mg tablet 00:00: [place] 00 the Medical morning. Branch ezetimibe 2023-0 Yes [id number] 10mg Take 1 U nivers (ZETIA) 10 4-18 tablet by ity of mg tablet 00:00: [place] the Medical morning. Branch ezetimibe 2023-0 Yes [id number] 10mg Take 1 U nivers (ZETIA) 10 4-18 tablet by ity of mg tablet 00:00: [place] 00 the Medical morning. Branch ezetimibe 2023-0 Yes [id number] 10mg Take 1 U nivers (ZETIA) 10 4-18 tablet by ity of mg tablet 00:00: [place] 00 the Medical morning. Branch ezetimibe 2023-0 Yes [id number] 10mg Take 1 U nivers (ZETIA) 10 4-18 tablet by ity of mg tablet 00:00: [place] the Medical morning. Branch ezetimibe 2023-0 Yes [id number] 10mg Take 1 U nivers (ZETIA) 10 4-18 tablet by ity of mg tablet 00:00: [place] 00 the Medical morning. Branch ezetimibe 2023-0 Yes [id number] 10mg Take 1 U nivers (ZETIA) 10 4-18 tablet by ity of mg tablet 00:00: [place] the Medical morning. Branch ezetimibe 2023-0 Yes [id number] 10mg Take 1 U nivers (ZETIA) 10 4-18 tablet by ity of mg tablet 00:00: [place] the Medical morning. Branch ezetimibe 2023-0 Yes [id number] 10mg Take 1 U nivers (ZETIA) 10 4-18 tablet by ity of mg tablet 00:00: [place] 00 the Medical morning. Branch ezetimibe 2023-0 Yes [id number] 10mg Take 1 U nivers (ZETIA) 10 4-18 tablet by ity of mg tablet 00:00: [place] 00 the Medical morning. Branch ezetimibe 2023-0 Yes [id number] 10mg Take 1 U nivers (ZETIA) 10 4-18 tablet by ity of mg tablet 00:00: [place] 00 the Medical morning. Branch ezetimibe 2023-0 Yes [id number] 10mg Take 1 U nivers (ZETIA) 10 4-18 tablet by ity of mg tablet 00:00: [place] the Medical morning. Branch ezetimibe 2023-0 Yes [id number] 10mg Take 1 U nivers (ZETIA) 10 4-18 tablet by ity of mg tablet 00:00: [place] 00 the Medical morning. Branch ezetimibe 2023-0 Yes [id number] 10mg Take 1 U nivers (ZETIA) 10 4-18 tablet by ity of mg tablet 00:00: [place] 00 the Medical morning. Branch ezetimibe 2023-0 Yes [id number] 10mg Take 1 U nivers (ZETIA) 10 4-18 tablet by ity of mg tablet 00:00: [place] 00 the Medical morning. Branch ezetimibe 2023-0 Yes [id number] 10mg Take 1 U nivers (ZETIA) 10 4-18 tablet by ity of mg tablet 00:00: [place] 00 the Medical morning. Branch ezetimibe 2023-0 Yes [id number] 10mg Take 1 U nivers (ZETIA) 10 4-18 tablet by ity of mg tablet 00:00: [place] 00 the Medical morning. Branch ezetimibe 2023-0 Yes [id number] 10mg Take 1 U nivers (ZETIA) 10 4-18 tablet by ity of mg tablet 00:00: [place] 00 the Medical morning. Branch ezetimibe 2023-0 Yes [id number] 10mg Take 1 U nivers (ZETIA) 10 4-18 tablet by ity of mg tablet 00:00: [place] 00 the Medical morning. Branch ezetimibe 2023-0 Yes [id number] 10mg Take 1 U nivers (ZETIA) 10 4-18 tablet by ity of mg tablet 00:00: [place] 00 the Medical morning. Branch ezetimibe 2023-0 Yes [id number] 10mg Take 1 U nivers (ZETIA) 10 4-18 tablet by ity of mg tablet 00:00: [place] 00 the Medical morning. Branch ezetimibe 2023-0 Yes [id number] 10mg Take 1 U nivers (ZETIA) 10 4-18 tablet by ity of mg tablet 00:00: [place] 00 the Medical morning. Branch ezetimibe 2023-0 Yes [id number] 10mg Take 1 U nivers (ZETIA) 10 4-18 tablet by ity of mg tablet 00:00: [place] 00 the Medical morning. Branch ezetimibe 2023-0 Yes [id number] 10mg Take 1 U nivers (ZETIA) 10 4-18 tablet by ity of mg tablet 00:00: [place] 00 the Medical morning. Branch ezetimibe 2023-0 Yes [id number] 10mg Take 1 U nivers (ZETIA) 10 4-18 tablet by ity of mg tablet 00:00: [place] 00 the Medical morning. Branch ezetimibe 2023-0 Yes [id number] 10mg Take 1 U nivers (ZETIA) 10 4-18 tablet by ity of mg tablet 00:00: [place] 00 the Medical morning. Branch ezetimibe 2023-0 Yes [id number] 10mg Take 1 U nivers (ZETIA) 10 4-18 tablet by ity of mg tablet 00:00: [place] 00 the Medical morning. Branch ezetimibe 2023-0 Yes [id number] 10mg Take 1 U nivers (ZETIA) 10 4-18 tablet by ity of mg tablet 00:00: [place] 00 the Medical morning. Branch ezetimibe 2023-0 Yes [id number] 10mg Take 1 U nivers (ZETIA) 10 4-18 tablet by ity of mg tablet 00:00: [place] 00 the Medical morning. Branch ezetimibe 2023-0 Yes [id number] 10mg Take 1 U nivers (ZETIA) 10 4-18 tablet by ity of mg tablet 00:00: [place] 00 the Medical morning. Branch ezetimibe 2023-0 Yes [id number] 10mg Take 1 U nivers (ZETIA) 10 4-18 tablet by ity of mg tablet 00:00: [place] the Medical morning. Branch ezetimibe 2023-0 Yes [id number] 10mg Take 1 U nivers (ZETIA) 10 4-18 tablet by [facility] mg tablet 00:00: [place] 00 the Medical morning. Branch ezetimibe 2023-0 Yes [id number] 10mg Take 1 [facility] (ZETIA) 10 4-18 tablet by [facility] mg tablet 00:00: [place] 00 the Medical morning. Branch ezetimibe 2023-0 Yes [id number] 10mg Take 1 [facility] (ZETIA) 10 4-18 tablet by [facility] mg tablet 00:00: mouth [place] 00 the Medical morning. Branch ezetimibe 2023-0 Yes [id number] 10mg Take 1 [facility] (ZETIA) 10 4-18 tablet by [facility] mg tablet 00:00: mouth [place] 00 the Medical morning. Branch ezetimibe 2022-0 Yes [id number] 10mg Take 1 [facility] (ZETIA) 10 4-18 tablet by [facility] mg tablet 00:00: mouth [place] 00 the Medical morning. Branch ezetimibe 2022-0 Yes [id number] 10mg Take 1 [facility] (ZETIA) 10 4-18 tablet by [facility] mg tablet 00:00: mouth [place] 00 the Medical morning. Branch ezetimibe 2022-0 Yes [id number] 10mg Take 1 [facility] (ZETIA) 10 4-18 tablet by [facility] mg tablet 00:00: mouth [place] 00 the Medical morning. Branch ezetimibe 2022-0 Yes [id number] 10mg Take 1 [facility] (ZETIA) 10 4-18 tablet by [facility] mg tablet 00:00: mouth [place] 00 the Medical morning. [place] ezetimibe 2022-0 Yes [id number] 10mg Take 1 [facility] (ZETIA) 10 4-18 tablet by [facility] mg tablet 00:00: mouth [place] 00 the Medical morning. [place] ezetimibe 2022-0 Yes [id number] 10mg Take 1 [facility] (ZETIA) 10 4-18 tablet by [facility] mg tablet 00:00: [place] 00 the Medical morning. [place] ezetimibe 2022-0 Yes [id number] 10mg Take 1 [facility] (ZETIA) 10 4-18 tablet by [facility] mg tablet 00:00: mouth [place] 00 the Medical morning. [place] alendronate 0 Yes 70mg 70 mg, Univ ers (FOSAMAX) 06-13 Oral, ity of tablet 70 06:00: QWEEKLY, [place] mg 00 First dose Medical on Sat [place] 06/13/22 at 0000, Until Discontinu ed, Routine magnesium 2022-0 2022- No 400mg 400 mg, Uni vers oxide 06-12 Oral, ity of (MAG-OX 14:45: 14:19 ONCE, 1 [place] 400) tablet 00 :00 dose, On Medi tyrone 400 mg Sat [place] 06/12/22 at 0845, Routine HYDROcodone 2022-0 Yes [...] 35 Medical tablet Branch NaCl 0.9% Yes [id number] 250mL at 20 [facility] (NS) IV 2-27 mL/hr, IV it[facility] of infusion 16:15: Infusion, [place] 250 mL 00 CONTINUOUS Medical , Starting Branch on 06/11/22 at 1015, Until Discontinu ed, Routine&lt ;br>KVO
lidocaine 2022- No [id number] 15mL 15 mL, Univers 2% viscous 06-1107 Oral, ity of (LIDOCAINE 16:15: 16:15 ONCE, 1 [place] as VISCOUS) 2 00 :00 dose, On Medic al % solution Mon Branch 15 mL 06/11/22 at 1015, Routine FENTanyl PF 2022- No [id number] 50ug 50 mcg, Univers (SUBLIMAZE 06-11 9107 Slow IV ity o f (PF)) 16:15: 16:15 Push, [place] injection 00 :00 ONCE, 1 Medical 50 mcg dose, On [facility] 06/11/22 at 1015, Routine midazolam 2022- No [id number] 1mg 1 mg, IV Univers (VERSED) 06-11 9107 Push, ity of injection 1 16:15: 16:15 ONCE, 1 [place] mg 00 :00 dose, On Medical Mon [place] 06/11/22 at 1015, Routine warfarin 1 Yes [id number] 2mg Take 2 Univers mg tablet 2-27 tablets by ity of 00:00: mouth [place] 00 every Medical evening. Branch Alternate take 1mg x3 days, then 2mg x 4 days warfarin Yes [id number] 2mg Take 2 [facility] mg tablet 2-27 tablets by ity of 00:00: mouth [place] 00 every Medical evening. Branch Alternate take 1mg x3 days, then 2mg x 4 days warfarin Yes [id number] 2mg Take 2 [facility] mg tablet 2-27 tablets by ity of 00:00: mouth [place] 00 every Medical evening. Branch Alternate take 1mg x3 days, then 2mg x 4 days warfarin Yes [id number] 2mg Take 2 Univers mg tablet 2-27 tablets by ity of 00:00: mouth [place] 00 every Medical evening. Branch Alternate take 1mg x3 days, then 2mg x 4 days warfarin 1 Yes [id number] 2mg Take 2 [facility] mg tablet 2-27 tablets by ity of 00:00: mouth [place] 00 every Medical evening. Branch Alternate take 1mg x3 days, then 2mg x 4 days warfarin 1 Yes [id number] 2mg Take 2 Univers mg tablet 2-27 tablets by ity of 00:00: mouth [place] 00 every Medical evening. Branch Alternate take 1mg x3 days, then 2mg x 4 days warfarin Yes [id number] 2mg Take 2 Univers mg tablet 2-27 tablets by ity of 00:00: mouth [place] 00 every Medical evening. Branch Alternate take 1mg x3 days, then 2mg x 4 days warfarin Yes [id number] 2mg Take 2 Univers mg tablet 2-27 tablets by ity of 00:00: mouth [place] 00 every Medical evening. Branch Alternate take 1mg x3 days, then 2mg x 4 days warfarin 1 2022-0 Yes [id number] 2mg Take 2 Univers mg tablet 2-27 tablets by ity of 00:00: mouth [place] 00 every Medical evening. Branch Alternate take 1mg x3 days, then 2mg x 4 days warfarin 1 0 Yes [id number] 2mg Take 2 Univers mg tablet 2-27 tablets by ity of 00:00: mouth [place] 00 every Medical evening. Branch Alternate take 1mg x3 days, then 2mg x 4 days warfarin 1 2022-0 Yes [id number] 2mg Take 2 Univers mg tablet 2-27 tablets by ity of 00:00: mouth [place] 00 every Medical evening. Branch Alternate take 1mg x3 days, then 2mg x 4 days warfarin 1 2022-0 Yes [id number] 2mg Take 2 Univers mg tablet 2-27 tablets by ity of 00:00: mouth [place] 00 every Medical evening. Branch Alternate take 1mg x3 days, then 2mg x 4 days warfarin 0 Yes [id number] 2mg Take 2 Univers mg tablet 2-27 tablets by ity of 00:00: mouth [place] 00 every Medical evening. Branch Alternate take 1mg x3 days, then 2mg x 4 days warfarin 2022-0 Yes [id number] 2mg Take 2 Univers mg tablet 2-27 tablets by ity of 00:00: mouth [place] 00 every Medical evening. Branch Alternate take 1mg x3 days, then 2mg x 4 days warfarin 1 2022-0 Yes [id number] 2mg Take 2 Univers mg tablet 2-27 tablets by ity of 00:00: mouth [place] 00 every Medical evening. Branch Alternate take 1mg x3 days, then 2mg x 4 days warfarin 1 2022-0 Yes [id number] 2mg Take 2 Univers mg tablet 2-27 tablets by ity of 00:00: mouth [place] 00 every Medical evening. Branch Alternate take 1mg x3 days, then 2mg x 4 days warfarin 1 2022-0 Yes [id number] 2mg Take 2 Univers mg tablet 2-27 tablets by ity of 00:00: mouth [place] 00 every Medical evening. Branch Alternate take 1mg x3 days, then 2mg x 4 days warfarin 1 2022-0 Yes [id number] 2mg Take 2 Univers mg tablet 2-27 tablets by ity of 00:00: mouth [place] 00 every Medical evening. Branch Alternate take 1mg x3 days, then 2mg x 4 days warfarin 1 2022-0 Yes [id number] 2mg Take 2 Univers mg tablet 2-27 tablets by ity of 00:00: mouth [place] 00 every Medical evening. Branch Alternate take 1mg x3 days, then 2mg x 4 days warfarin 2022-0 Yes [id number] 2mg Take 2 Univers mg tablet 2-27 tablets by ity of 00:00: mouth [place] 00 every Medical evening. Branch Alternate take 1mg x3 days, then 2mg x 4 days warfarin 1 2022-0 Yes [id number] 2mg Take 2 Univers mg tablet 2-27 tablets by ity of 00:00: mouth [place] 00 every Medical evening. Branch Alternate take 1mg x3 days, then 2mg x 4 days warfarin 1 2022-0 Yes [id number] 2mg Take 2 Univers mg tablet 2-27 tablets by ity of 00:00: mouth [place] 00 every Medical evening. Branch Alternate take 1mg x3 days, then 2mg x 4 days warfarin 1 0 Yes [id number] 2mg Take 2 Univers mg tablet 2-27 tablets by ity of 00:00: mouth [place] 00 every Medical evening. Branch Alternate take 1mg x3 days, then 2mg x 4 days warfarin 2022-0 Yes [id number] 2mg Take 2 Univers mg tablet 2-27 tablets by ity of 00:00: mouth [place] 00 every Medical evening. Branch Alternate take 1mg x3 days, then 2mg x 4 days warfarin 0 Yes [id number] 2mg Take 2 Univers mg tablet 2-27 tablets by ity of 00:00: mouth [place] 00 every Medical evening. Branch Alternate take 1mg x3 days, then 2mg x 4 days warfarin 1 0 Yes [id number] 2mg Take 2 Univers mg tablet 2-27 tablets by ity of 00:00: mouth [place] 00 every Medical evening. Branch Alternate take 1mg x3 days, then 2mg x 4 days warfarin 1 2022-0 Yes [id number] 2mg Take 2 Univers mg tablet 2-27 tablets by ity of 00:00: mouth [place] 00 every Medical evening. Branch Alternate take 1mg x3 days, then 2mg x 4 days warfarin 1 2022-0 Yes [id number] 2mg Take 2 Univers mg tablet 2-27 tablets by ity of 00:00: mouth [place] 00 every Medical evening. Branch Alternate take 1mg x3 days, then 2mg x 4 days warfarin 1 2022-0 Yes [id number] 2mg Take 2 Univers mg tablet 2-27 tablets by ity of 00:00: mouth [place] 00 every Medical evening. Branch Alternate take 1mg x3 days, then 2mg x 4 days warfarin 1 2022-0 Yes [id number] 2mg Take 2 Univers mg tablet 2-27 tablets by ity of 00:00: mouth [place] 00 every Medical evening. Branch Alternate take 1mg x3 days, then 2mg x 4 days warfarin 1 2022-0 Yes [id number] 2mg Take 2 Univers mg tablet 2-27 tablets by ity of 00:00: mouth [place] 00 every Medical evening. Branch Alternate take 1mg x3 days, then 2mg x 4 days warfarin 2022-0 Yes [id number] 2mg Take 2 Univers mg tablet 2-27 tablets by ity of 00:00: mouth [place] 00 every Medical evening. Branch Alternate take 1mg x3 days, then 2mg x 4 days warfarin 2022-0 Yes [id number] 2mg Take 2 Univers mg tablet 2-27 tablets by ity of 00:00: mouth [place] 00 every Medical evening. Branch Alternate take 1mg x3 days, then 2mg x 4 days warfarin 1 2022-0 Yes [id number] 2mg Take 2 Univers mg tablet 2-27 tablets by ity of 00:00: mouth [place] 00 every Medical evening. Branch Alternate take 1mg x3 days, then 2mg x 4 days warfarin 1 2022-0 Yes [id number] 2mg Take 2 Univers mg tablet 2-27 tablets by ity of 00:00: mouth [place] 00 every Medical evening. Branch Alternate take 1mg x3 days, then 2mg x 4 days warfarin 1 2022-0 Yes [id number] 2mg Take 2 Univers mg tablet 2-27 tablets by ity of 00:00: mouth [place] 00 every Medical evening. Branch Alternate take 1mg x3 days, then 2mg x 4 days warfarin 1 2022-0 Yes [id number] 2mg Take 2 Univers mg tablet 2-27 tablets by ity of 00:00: mouth [place] 00 every Medical evening. Branch Alternate take 1mg x3 days, then 2mg x 4 days warfarin 1 Yes [id number] 2mg Take 2 Univers mg tablet 2-27 tablets by ity of 00:00: mouth [place] 00 every Medical evening. Branch Alternate take 1mg x3 days, then 2mg x 4 days warfarin 1 0 Yes [id number] 2mg Take 2 Univers mg tablet 2-27 tablets by ity of 00:00: mouth [place] 00 every Medical evening. Branch Alternate take 1mg x3 days, then 2mg x 4 days warfarin 1 Yes [id number] 2mg Take 2 Univers mg tablet 2-27 tablets by ity of 00:00: mouth [place] 00 every Medical evening. Branch Alternate take 1mg x3 days, then 2mg x 4 days warfarin 1 Yes [id number] 2mg Take 2 Univers mg tablet 2-27 tablets by ity of 00:00: mouth [place] 00 every Medical evening. Branch Alternate take 1mg x3 days, then 2mg x 4 days warfarin 1 2022- No [id number] 2mg Take 2 Univers mg tablet 2-27 07-07 tablets by ity of 00:00: 00:00 mouth [place] 00 :00 every Medical evening. Branch Alternate take 1mg x3 days, then 2mg x 4 days warfarin 1 2022- No [id number] 2mg Take 2 Univers mg tablet 2-27 07-07 tablets by ity of 00:00: 00:00 mouth [place] 00 :00 every Medical evening. Branch Alternate take 1mg x3 days, then 2mg x 4 days dofetilide 2022- No [id number] 250ug Take 1 Univers 250 mcg 2-27 05-29 capsule by ity o f capsule 00:00: 04:59 mouth [place] 00 :00 every 12 Medical (twelve) Branch hours for 90 days. dofetilide 2022-2022- No [id number] 250ug Take 1 Univers 250 mcg 2-27 05-29 capsule by ity o f capsule 00:00: 04:59 mouth [place] 00 :00 every 12 Medical (twelve) Branch hours for 90 days. dofetilide 2022- No [id number] 250ug Take 1 Univers 250 mcg 2-27 05-29 capsule by ity o f capsule 00:00: 04:59 mouth [place] 00 :00 every 12 Medical (twelve) Branch hours for 90 days. dofetilide 2022- No [id number] 250ug Take 1 Univers 250 mcg 2-27 05-29 capsule by ity o f capsule 00:00: 04:59 mouth [place] 00 :00 every 12 Medical (twelve) Branch hours for 90 days. dofetilide 2022- No [id number] 250ug Take 1 Univers 250 mcg 2-27 05-29 capsule by ity o f capsule 00:00: 04:59 mouth [place] 00 :00 every 12 Medical (twelve) Branch hours for 90 days. dofetilide 2022- No [id number] 250ug Take 1 Univers 250 mcg 2-27 05-29 capsule by ity o f capsule 00:00: 04:59 mouth [place] 00 :00 every 12 Medical (twelve) Branch hours for 90 days. dofetilide 2022- No [id number] 250ug Take 1 Univers 250 mcg 2-27 05-29 capsule by ity o f capsule 00:00: 04:59 mouth [place] 00 :00 every 12 Medical (twelve) Branch hours for 90 days. dofetilide 2022- No [id number] 250ug Take 1 Univers 250 mcg 2-27 05-29 capsule by ity o f capsule 00:00: 04:59 mouth [place] 00 :00 every 12 Medical (twelve) Branch hours for 90 days. dofetilide 2022- No [id number] 250ug Take 1 Univers 250 mcg 2-27 05-29 capsule by ity o f capsule 00:00: 04:59 mouth [place] 00 :00 every 12 Medical (twelve) Branch hours for 90 days. dofetilide 2022- No [id number] 250ug Take 1 Univers 250 mcg 2-27 05-29 capsule by ity o f capsule 00:00: 04:59 mouth [place] 00 :00 every 12 Medical (twelve) Branch hours for 90 days. dofetilide 2022- No [id number] 250ug Take 1 Univers 250 mcg 2-27 05-29 capsule by ity o f capsule 00:00: 04:59 mouth [place] 00 :00 every 12 Medical (twelve) Branch hours for 90 days. dofetilide 2022- No [id number] 250ug Take 1 Univers 250 mcg 2-27 05-29 capsule by ity o f capsule 00:00: 04:59 mouth [place] 00 :00 every 12 Medical (twelve) Branch hours for 90 days. dofetilide 2022- No [id number] 250ug Take 1 Univers 250 mcg 2-27 05-29 capsule by ity o f capsule 00:00: 04:59 mouth [place] 00 :00 every 12 Medical (twelve) Branch hours for 90 days. dofetilide 2022- No [id number] 250ug Take 1 Univers 250 mcg 2-27 05-29 capsule by ity o f capsule 00:00: 04:59 mouth [place] 00 :00 every 12 Medical (twelve) Branch hours for 90 days. dofetilide 2022- No [id number] 250ug Take 1 Univers 250 mcg 2-27 05-29 capsule by ity o f capsule 00:00: 04:59 mouth [place] 00 :00 every 12 Medical (twelve) Branch hours for 90 days. dofetilide 2022- No [id number] 250ug Take 1 Univers 250 mcg 2-27 05-29 capsule by ity o f capsule 00:00: 04:59 mouth [place] 00 :00 every 12 Medical (twelve) Branch hours for 90 days. dofetilide 2022- No [id number] 250ug Take 1 Univers 250 mcg 2-27 05-29 capsule by ity o f capsule 00:00: 04:59 mouth [place] 00 :00 every 12 Medical (twelve) Branch hours for 90 days. dofetilide 2022- No [id number] 250ug Take 1 Univers 250 mcg 2-27 05-29 capsule by ity o f capsule 00:00: 04:59 mouth [place] 00 :00 every 12 Medical (twelve) Branch hours for 90 days. dofetilide 2022- No [id number] 250ug Take 1 Univers 250 mcg 2-27 05-29 capsule by ity o f capsule 00:00: 04:59 mouth [place] 00 :00 every 12 Medical (twelve) Branch hours for 90 days. dofetilide 2022- No [id number] 250ug Take 1 Univers 250 mcg 2-27 05-29 capsule by ity o f capsule 00:00: 04:59 mouth [place] 00 :00 every 12 Medical (twelve) Branch hours for 90 days. dofetilide 2022- No [id number] 250ug Take 1 Univers 250 mcg 2-27 05-29 capsule by ity o f capsule 00:00: 04:59 mouth [place] 00 :00 every 12 Medical (twelve) Branch hours for 90 days. dofetilide 2022- No [id number] 250ug Take 1 Univers 250 mcg 2-27 05-29 capsule by ity o f capsule 00:00: 04:59 mouth [place] 00 :00 every 12 Medical (twelve) Branch hours for 90 days. dofetilide 2022- No [id number] 250ug Take 1 Univers 250 mcg 2-27 05-29 capsule by ity o f capsule 00:00: 04:59 mouth [place] 00 :00 every 12 Medical (twelve) Branch hours for 90 days. dofetilide 2022- No [id number] 250ug Take 1 Univers 250 mcg 2-27 05-29 capsule by ity o f capsule 00:00: 04:59 mouth [place] 00 :00 every 12 Medical (twelve) Branch hours for 90 days. dofetilide 2022- No [id number] 250ug Take 1 Univers 250 mcg 2-27 05-29 capsule by ity o f capsule 00:00: 04:59 mouth [place] 00 :00 every 12 Medical (twelve) Branch hours for 90 days. dofetilide 2022- No [id number] 250ug Take 1 Univers 250 mcg 2-27 05-29 capsule by ity o f capsule 00:00: 04:59 mouth [place] 00 :00 every 12 Medical (twelve) Branch hours for 90 days. dofetilide 2022- No [id number] 250ug Take 1 Univers 250 mcg 2-27 05-29 capsule by ity o f capsule 00:00: 04:59 mouth [place] 00 :00 every 12 Medical (twelve) Branch hours for 90 days. dofetilide 2022- No [id number] 250ug Take 1 Univers 250 mcg 2-27 05-29 capsule by ity o f capsule 00:00: 04:59 mouth [place] 00 :00 every 12 Medical (twelve) Branch hours for 90 days. dofetilide 2022- No [id number] 250ug Take 1 Univers 250 mcg 2-27 05-29 capsule by ity o f capsule 00:00: 04:59 mouth [place] 00 :00 every 12 Medical (twelve) Branch hours for 90 days. dofetilide 2022- No [id number] 250ug Take 1 Univers 250 mcg 2-27 05-29 capsule by ity o f capsule 00:00: 04:59 mouth [place] 00 :00 every 12 Medical (twelve) Branch hours for 90 days. dofetilide 2022- No [id number] 250ug Take 1 Univers 250 mcg 2-27 05-29 capsule by ity o f capsule 00:00: 04:59 mouth [place] 00 :00 every 12 Medical (twelve) Branch hours for 90 days. dofetilide 2022- No [id number] 250ug Take 1 Univers 250 mcg 2-27 05-29 capsule by ity o f capsule 00:00: 04:59 mouth [place] 00 :00 every 12 Medical (twelve) Branch hours for 90 days. dofetilide 2022- No [id number] 250ug Take 1 Univers 250 mcg 2-27 05-29 capsule by ity o f capsule 00:00: 04:59 mouth [place] 00 :00 every 12 Medical (twelve) Branch hours for 90 days. dofetilide 2022- No [id number] 250ug Take 1 Univers 250 mcg 2-27 05-29 capsule by ity o f capsule 00:00: 04:59 mouth [place] 00 :00 every 12 Medical (twelve) Branch hours for 90 days. dofetilide 2022- No [id number] 250ug Take 1 Univers 250 mcg 2-27 05-29 capsule by ity o f capsule 00:00: 04:59 mouth [place] 00 :00 every 12 Medical (twelve) Branch hours for 90 days. enoxaparin 2022- No [id number] 40mg inject 0.4 Univers 40 mg/0.4 2-27 03-05 mL under ity o f mL 00:00: 05:59 the skin [place] injection 00 :00 in the [facility] morning Branch for 5 days. enoxaparin No [id number] 40mg inject 0.4 Univers 40 mg/0.4 06-11 03-05 mL under ity o f mL 00:00: 05:59 the skin [place] injection 00 :00 in the [facility] Branch for 5 days. enoxaparin No [id number] 40mg inject 0.4 Univers 40 mg/0.4 06-11 03-05 mL under ity o f mL 00:00: 05:59 the skin [place] injection 00 :00 in the [facility] Branch for 5 days. enoxaparin No [id number] 40mg inject 0.4 Univers 40 mg/0.4 06-11 03-05 mL under ity o f mL 00:00: 05:59 the skin [place] injection 00 :00 in the [facility] Branch for 5 days. enoxaparin No [id number] 40mg inject 0.4 Univers 40 mg/0.4 06-11 03-05 mL under ity o f mL 00:00: 05:59 the skin [place] injection 00 :00 in the [facility] Branch for 5 days. enoxaparin No [id number] 40mg inject 0.4 Univers 40 mg/0.4 06-11 03-05 mL under ity o f mL 00:00: 05:59 the skin [place] injection 00 :00 in the [facility] Branch for 5 days. enoxaparin No [id number] 40mg inject 0.4 Univers 40 mg/0.4 06-11 03-05 mL under ity o f mL 00:00: 05:59 the skin [place] injection 00 :00 in the [facility] Branch for 5 days. dofetilide 2022- No [id number] 250ug Take 1 Univers 250 mcg 06-11 capsule by ity o f capsule 00:00: 05:59 mouth [place] 00 :00 every 12 Medical (twelve) Branch hours for 2 days. warfarin 2 2022- No [id number] 2mg Take 1 [facility] mg tablet 06-11 tablet by ity of 00:00: 05:59 mouth [place] 00 :00 every Medical evening Branch for 2 days. dofetilide 2022- No [id number] 250ug Take 1 [facility] 250 mcg 06-11 capsule by ity o f capsule 00:00: 05:59 mouth [place] 00 :00 every 12 Medical (twelve) Branch hours for 2 days. warfarin 2 2022- No [id number] 2mg Take 1 Univers mg tablet 06-11 tablet by ity of 00:00: 05:59 mouth [place] 00 :00 every Medical evening Branch for 2 days. warfarin 2 2022- No [id number] 2mg Take 1 [facility] mg tablet 06-11 tablet by ity of 00:00: 05:59 mouth [place] 00 :00 every Medical evening Branch for 2 days. warfarin 2 2022- No [id number] 2mg Take 1 [facility] mg tablet 06-11 tablet by ity of 00:00: 05:59 mouth [place] 00 :00 every Medical evening Branch for 2 days. warfarin 2 2022- No [id number] 2mg Take 1 Univers mg tablet 06-11 tablet by ity of 00:00: 05:59 mouth [place] 00 :00 every Medical evening Branch for 2 days. warfarin 2 2022- No [id number] 2mg Take 1 [facility] mg tablet 06-11 tablet by ity of 00:00: 05:59 mouth [place] 00 :00 every Medical evening Branch for 2 days. warfarin 2 2022- No [id number] 2mg Take 1 [facility] mg tablet 06-11 tablet by ity of 00:00: 05:59 mouth [place] 00 :00 every Medical evening Branch for 2 days. enoxaparin 2022- No [id number] 40mg inject 0.4 Univers 40 mg/0.4 06-11 mL under ity o f mL 00:00: 05:59 the skin [place] injection 00 :00 in the Medical morning Branch for 2 days. enoxaparin 2022- No [id number] 40mg inject 0.4 Univers 40 mg/0.4 2-27 03-02 mL under ity o f mL 00:00: 05:59 the skin [place] injection 00 :00 in the [facility] morning Branch for 2 days. dofetilide 2022-2022- No [id number] 250ug Take 1 Univers 250 mcg 06-11 capsule by ity o f capsule 00:00: 05:59 mouth [place] 00 :00 every 12 [facility] ([facility]) Branch hours for 2 days. enoxaparin 2022- No [id number] 40mg inject 0.4 Univers 40 mg/0.4 06-11- mL under ity o f mL 00:00: 05:59 the skin [place] injection 00 :00 in the [facility] Branch for 2 days. dofetilide 2022-2022- No [id number] 250ug Take 1 Univers 250 mcg 06-11 capsule by ity o f capsule 00:00: 05:59 mouth [place] 00 :00 every 12 [facility] ([facility]) Branch hours for 2 days. enoxaparin 2022- No [id number] 40mg inject 0.4 Univers 40 mg/0.4 06-11 mL under ity o f mL 00:00: 05:59 the skin [place] injection 00 :00 in the [facility] Branch for 2 days. dofetilide 2022-2022- No [id number] 250ug Take 1 Univers 250 mcg 06-11 capsule by ity o f capsule 00:00: 05:59 mouth [place] 00 :00 every 12 [facility] ([facility]) Branch hours for 2 days. enoxaparin 2022- No [id number] 40mg inject 0.4 Univers 40 mg/0.4 06-11- mL under ity o f mL 00:00: 05:59 the skin [place] injection 00 :00 in the [facility] Branch for 2 days. dofetilide 2022-2022- No [id number] 250ug Take 1 Univers 250 mcg 06-11 capsule by ity o f capsule 00:00: 05:59 mouth [place] 00 :00 every 12 [facility] ([facility]) Branch hours for 2 days. enoxaparin 2022-2022- No [id number] 40mg inject 0.4 Univers 40 mg/0.4 06-11- mL under ity o f mL 00:00: 05:59 the skin [place] injection 00 :00 in the Medical morning Branch for 2 days. dofetilide 2022- No [id number] 250ug Take 1 [facility] 250 mcg 06-11 capsule by ity o f capsule 00:00: 05:59 mouth [place] 00 :00 every 12 Medical (twelve) Branch hours for 2 days. enoxaparin 2022- No [id number] 40mg inject 0.4 Univers 40 mg/0.4 06-11 [...] :00 dose, On Medi tyrone 800 mg [place] Branch 06/10/22 at 0815, Routine magnesium 2022- [...] Branch 2000, Until Discontinu ed, Routine gabapentin 2022- Yes 200mg 200 mg, Uni vers (NEURONTIN) 25 Oral, TID, it y of capsule 200 [...] INITIAL INFUSION RATE.&nbsp ; _ &nb sp;FOR [place], [facility], AND [facility] ONLY &nbs p; - aPTT [...] :00 dose, On Medi tyrone 400 mg [facility] 06/09/22 at 0900, Routine FENTanyl PF Yes 25ug 25 mcg, Uni vers (SUBLIMAZE 24 Slow IV ity of (PF)) 17:36: Push, [place] injection 01 Q6HPRN, Medical 25 mcg Starting Branch on Sat06/08/22 at 1136, Until Discontinu ed, Routine, Pain (scale 7-10) magnesium 202- No 2g 2 g, IV Univ ers [...] Medical (after Branch last modificati on) on [facility] 06/07/22 at 2000, Until Discontinu ed, Routine
clergy member approving Restricted medication : MARIIA CARDONA warfarin 2022- No 1.5mg 1.5 mg, Univ ers (COUMADIN) 06-07 Oral, ity of tablet 1.5 23:00: 13:52 DAILY AT [place] mg 00 :32 1700, Medical First dose Branch (after last modificati on) on [facility] 06/07/22 at 1700, Until Discontinu ed, Routine
INR Goal Range: 2-3
IND ICATION (More than one indication for warfarin can be selected): Atrial fibrillati on/flutter pantoprazol Yes 40mg 40 mg, Univ ers e 06-07 Oral, ity of (PROTONIX) 15:00: DAILY, [place] EC tablet 00 First dose Medi tyrone 40 mg on [facility] Branch 06/07/22 at 0900, Until Discontinu ed, Routine ezetimibe Yes 10mg 10 mg, Univer s (ZETIA) 06-07 Oral, ity of tablet 10 15:00: DAILY, [place] mg 00 First dose Medical on [facility] Branch 06/07/22 at 0900, Until Discontinu ed, Routine furosemide 2022- No 40mg 40 mg, Univ ers (LASIX) 06-07 Oral, ity of tablet 40 15:00: 20:50 DAILY, [place] mg 00 :38 First dose Medical on [facility] Branch 06/07/22 at 0900, Until Discontinu ed, Routine aspirin 2022- No 81mg 81 mg, Univers chewable 06-07 Oral, ity of tablet 81 15:00: 15:25 DAILY, [place] mg 00 :24 First dose Medical on [facility] Branch 06/07/22 at 0900, Until Discontinu [...] [place] mg 00 :00 dose, On Medical [facility] 06/07/22 at 0145, Routine KCL 2022- No 20meq 20 mEq, Univers (KLOR-CON 06-07 Oral, ity of M20) tablet 05:00: 06:48 ONCE, 1 [place] 20 mEq 00 :00 dose, On [facility] 06/06/22 at 2315, Routine magnesium 2022- No 2g 2 g, IV Univ ers sulfate in 06-07 Piggyback, it y of water 2 05:00: 08:15 Administer Babak as gram/50 mL 00 :00 over 60 Medica l (4 %) Minutes, Branch infusion 2 ONCE, 1 g dose, On [facility] 06/06/22 at 2315, Routine atorvastati Yes 80mg 80 mg, Univ ers n (LIPITOR) 06-07 Oral, QHS, it y of tablet 80 03:00: First dose [place] mg 00 on [facility] Medical 06/06/22 at Branch 2100, Until Discontinu ed, Routine dofetilide No 125ug 125 mcg, U nivers (TIKOSYN) 06-07 Oral, ity of capsule 125 02:00: 16:35 Q12H[place] m[place] 00 :11 First dose Medical on [facility] 06/06/22 at 2000, Until Discontinu ed, Routine
clergy member approving Restricted medication : MARIIA CARDONA lidocaine Yes 1{patch 1 Patch, U nivers (LIDODERM) 06-07 } Topical, ity o f 5 % (700 01:00: Administer Babak as mg/patch) 00 over 12 Medical patch 1 Hours, Branch Patch DAILY, First dose (after last modificati on) on [facility] 06/06/22 at 1900, Until Discontinu ed, Routine [...] 00 :00 by mouth Center daily. furosemide 2023-0 2024- No 20mg QD Take [address] [facility] (LASIX) 20 2-13 02-13 tablet (20 Yady kes MG tablet 00:00: 23:59 mg total) Me dical 00 :00 by mouth Center daily. furosemide 2022-4- No 20mg QD Take [address] [facility] [...] :00 by mouth Center daily. furosemide 2022-0 4- No 20mg QD Take [address] [facility] (LASIX) 20 2-13 02-13 tablet (20 Yady kes MG tablet 00:00: 23:59 mg total) Me dical 00 :00 by mouth Center daily. furosemide 2022-0 4- No 20mg QD Take [address] [facility] (LASIX) 20 2-13 02-13 tablet (20 Yady kes MG tablet 00:00: 23:59 mg total) Me dical 00 :00 by mouth Center daily. furosemide 2022-4- No 20mg QD Take [address] [facility] (LASIX) 20 2-13 02-13 tablet (20 Yady kes MG tablet 00:00: 23:59 mg total) Me dical 00 :00 by mouth Center daily. furosemide 2022-0 4- No 20mg QD Take [address] [facility] (LASIX) 20 2-13 02-13 tablet (20 Yady kes MG tablet 00:00: 23:59 mg total) Me dical 00 :00 by mouth Center daily. warfarin 2022-0 Yes 1mg QD Take [address] [facility] (COUMADIN, 2-12 by mouth [facility]) 1 16:44: daily. Medi tyrone MG tablet 11 [employer] warfarin 2023-0 Yes 1mg QD Take [address] [facility] (COUMADIN, 2-12 by mouth [facility]) 1 16:44: daily. Medi tyrone MG tablet 11 [employer] warfarin 2023-0 Yes 1mg QD Take [address] [facility] (COUMADIN, 2-12 by mouth [facility]) 1 16:44: daily. Medi tyrone MG tablet 11 [employer] warfarin 2023-0 Yes 1mg QD Take [address] [facility] (COUMADIN, 2-12 by mouth [facility]) 1 16:44: daily. Medi tyrone MG tablet 11 [employer] warfarin 2023-0 Yes 1mg QD Take [address] [facility] (COUMADIN, 2-12 by mouth [facility]) 1 16:44: daily. Medi tyrone MG tablet 11 [employer] warfarin 2023-0 Yes 1mg QD Take [address] [facility] (COUMADIN, 2-12 by mouth [facility]) 1 16:44: daily. Medi tyrone MG tablet 11 [employer] warfarin 3-0 Yes 1mg QD Take [address] [facility] (COUMADIN, 2-12 by mouth [facility]) 1 16:44: daily. Medi tyrone MG tablet 11 [employer] warfarin 3-0 Yes 1mg QD Take [address] [facility] (COUMADIN, 2-12 by mouth [facility]) 1 16:44: daily. Medi tyrone MG tablet 11 [employer] warfarin 3-0 Yes 1mg QD Take [address] [facility] (COUMADIN, 2-12 by mouth [facility]) 1 16:44: daily. Medi tyrone MG tablet 11 [employer] warfarin 3-0 Yes 1mg QD Take [address] [facility] (COUMADIN, 2-12 by mouth [facility]) 1 16:44: daily. Medi tyrone MG tablet 11 [employer] amiodarone 2022-0 Yes Take [address] [facility] (PACERONE) 2-12 PO BID x 1 [place] 200 MG 00:00: month then Medic al tablet 00 decrease Center to 1 tab daily. amiodarone 2022-0 Yes Take [address] [facility] [address] [facility] [...] 12.5mg Q.5D Take 0.[address] [facility] tartrate 2- tablets [facility] (LOPRESSOR) 00:00: 23:59 (12.5 mg M edical 25 MG 00 :00 total) by Center tablet mouth 2 (two) times daily. atorvastati 2023- No 80mg QD Take [address] [facility] n (LIPITOR) 2- tablet (80 L u[facility] 80 MG 00:00: [...] [facility] (COUMADIN, 2-04 by mouth [facility] 1 13:52: daily. Medi tyrone MG tablet 50 [employer] alendronate Yes Univer s 70 mg 1-26 ity of tablet 00:00: [place] [address] Medical Branch zolpidem 10 0 Yes 1 tablet [facility] mg tablet 1-26 at bedtime ity of 00:00: as needed [place] [facility] alendronate 0 Yes Univer s 70 mg 1-26 ity of tablet 00:00: [place] [address] Medical Branch zolpidem 10 0 Yes 1 tablet [place] mg tablet 1-26 at bedtime ity of 00:00: as needed [place] [address] Medical Branch alendronate Yes Univer s 70 mg 1-26 ity of tablet 00:00: [place] [address] Medical Branch zolpidem 10 0 Yes 1 tablet [place] mg tablet 1-26 at bedtime ity of 00:00: as needed [place] [address] Medical Branch alendronate Yes Univer s 70 mg 1-26 ity of tablet 00:00: [place] [address] Medical Branch zolpidem 10 2022-0 Yes 1 tablet [place] mg tablet 1-26 at bedtime ity of 00:00: as needed [place] [address] Medical Branch alendronate 0 Yes Univer s 70 mg 1-26 ity of tablet 00:00: [place] [address] Medical Branch zolpidem 10 2022-0 Yes 1 tablet [place] mg tablet 1-26 at bedtime ity of 00:00: as needed [place] [facility] alendronate 2022-0 Yes Univer s 70 mg 1-26 ity of tablet 00:00: [place] [address] Medical Branch zolpidem 10 2022-0 Yes 1 tablet [place] mg tablet 1-26 at bedtime ity of 00:00: as needed [place] [address] Medical Branch alendronate 2022-0 Yes Univer s 70 mg 1-26 ity of tablet 00:00: [place] [address] Medical Branch zolpidem 10 2022-0 Yes 1 tablet [place] mg tablet 1-26 at bedtime ity of 00:00: as needed [place] [address] Medical Branch alendronate 2022-0 Yes Univer s 70 mg 1-26 ity of tablet 00:00: [place] [facility] zolpidem 10 2022-0 Yes 1 tablet [facility] [place] mg tablet 1-26 at bedtime ity of 00:00: as needed Medical Branch alendronate 2022-0 Yes Univer s 70 mg 1-26 ity of tablet 00:00: [place] [facility] zolpidem 10 2022-0 Yes 1 tablet [facility] [place] mg tablet 1-26 at bedtime ity of 00:00: as needed Medical Branch alendronate 2022-0 Yes Univer s 70 mg 1-26 ity of tablet 00:00: [place] [facility] zolpidem 10 2022-0 Yes 1 tablet [place] mg tablet 1-26 at bedtime ity of 00:00: as needed [place] [facility] alendronate 2022-0 Yes Univer s 70 mg 1-26 ity of tablet 00:00: [place] [facility] zolpidem 10 2022-0 Yes 1 tablet [place] mg tablet 1-26 at bedtime ity of 00:00: as needed [place] [facility] alendronate 2022-0 Yes Univer s 70 mg 1-26 ity of tablet 00:00: [place] [facility] zolpidem 10 2022-0 Yes 1 tablet [place] mg tablet 1-26 at bedtime ity of 00:00: as needed Medical Branch alendronate 2022-0 Yes Univer s 70 mg 1-26 ity of tablet 00:00: [place] [facility] zolpidem 10 2022-0 Yes 1 tablet [place] mg tablet 1-26 at bedtime ity of 00:00: as needed Medical Branch alendronate 2022-0 Yes Univer s 70 mg 1-26 ity of tablet 00:00: [place] [facility] zolpidem 10 2022-0 Yes 1 tablet [place] mg tablet 1-26 at bedtime ity of 00:00: as needed Medical Branch alendronate 2022-0 Yes Univer s 70 mg 1-26 ity of tablet 00:00: [place] [facility] zolpidem 10 2022-0 Yes 1 tablet [place] mg tablet 1-26 at bedtime ity of 00:00: as needed [place] [facility] alendronate 0 Yes Univer s 70 mg 1-26 ity of tablet 00:00: [place] [facility] zolpidem 10 2022-0 Yes 1 tablet [place] mg tablet 1-26 at bedtime ity of 00:00: as needed Medical Branch alendronate 2022-0 Yes Univer s 70 mg 1-26 ity of tablet 00:00: [place] [facility] zolpidem 10 2022-0 Yes 1 tablet [place] mg tablet 1-26 at bedtime ity of 00:00: as needed [place] [facility] alendronate 2022-0 Yes Univer s 70 mg 1-26 ity of tablet 00:00: [place] [facility] zolpidem 10 2022-0 Yes 1 tablet [place] mg tablet 1-26 at bedtime ity of 00:00: as needed [place] [facility] alendronate 2022-0 Yes Univer s 70 mg 1-26 ity of tablet 00:00: [place] [address] Medical Branch zolpidem 10 2022-0 Yes 1 tablet [place] mg tablet 1-26 at bedtime ity of 00:00: as needed [place] [address] Medical Branch alendronate 2022-0 Yes Univer s 70 mg 1-26 ity of tablet 00:00: [place] [address] Medical Branch zolpidem 10 2022-0 Yes 1 tablet [place] mg tablet 1-26 at bedtime ity of 00:00: as needed Medical Branch alendronate 2022-0 Yes Univer s 70 mg 1-26 ity of tablet 00:00: [place] [facility] zolpidem 10 2022-0 Yes 1 tablet [place] mg tablet 1-26 at bedtime ity of 00:00: as needed [place] [address] Medical Branch alendronate 2022-0 Yes Univer s 70 mg 1-26 ity of tablet 00:00: [place] [address] Medical Branch zolpidem 10 2022-0 Yes 1 tablet [place] mg tablet 1-26 at bedtime ity of 00:00: as needed [place] [address] Medical Branch alendronate 2022-0 Yes Univer s 70 mg 1-26 ity of tablet 00:00: [place] [address] Medical Branch zolpidem 10 2022-0 Yes 1 tablet [place] mg tablet 1-26 at bedtime ity of 00:00: as needed [place] [facility] alendronate 2022-0 Yes Univer s 70 mg 1-26 ity of tablet 00:00: [place] [facility] zolpidem 10 2022-0 Yes 1 tablet [place] mg tablet 1-26 at bedtime ity of 00:00: as needed [place] [facility] alendronate 2022-0 Yes Univer s 70 mg 1-26 ity of tablet 00:00: [place] [facility] zolpidem 10 2022-0 Yes 1 tablet [place] mg tablet 1-26 at bedtime ity of 00:00: as needed [place] [facility] alendronate 2022-0 Yes Univer s 70 mg 1-26 ity of tablet 00:00: [place] [facility] zolpidem 10 2022-0 Yes 1 tablet [place] mg tablet 1-26 at bedtime ity of 00:00: as needed [place] [facility] alendronate 2022-0 Yes Univer s 70 mg 1-26 ity of tablet 00:00: [place] [facility] zolpidem 10 2022-0 Yes 1 tablet [place] mg tablet 1-26 at bedtime ity of 00:00: as needed [place] [facility] alendronate 2022-0 Yes Univer s 70 mg 1-26 ity of tablet 00:00: [place] [address] [facility] Branch zolpidem 10 2022-0 Yes 1 tablet [place] mg tablet 1-26 at bedtime ity of 00:00: as needed [place] [facility] alendronate 2022-0 Yes Univer s 70 mg 1-26 ity of tablet 00:00: [place] [facility] zolpidem 10 2022-0 Yes 1 tablet [place] mg tablet 1-26 at bedtime ity of 00:00: as needed [place] [facility] alendronate 2022-0 Yes Univer s 70 mg 1-26 ity of tablet 00:00: [place] [address] Medical Branch zolpidem 10 2022-0 Yes 1 tablet [place] mg tablet 1-26 at bedtime ity of 00:00: as needed [place] [facility] alendronate 2022-0 Yes Univer s 70 mg 1-26 ity of tablet 00:00: [place] [facility] zolpidem 10 2022-0 Yes 1 [...] 70 mg 1-26 ity of tablet 00:00: [place] [facility] zolpidem 10 2022-0 Yes 1 tablet [place] mg tablet 1-26 at bedtime ity of 00:00: as needed Medical Branch alendronate 2022-0 Yes Univer s 70 mg 1-26 ity of tablet 00:00: [place] [facility] zolpidem 10 2022-0 Yes 1 tablet [place] mg tablet 1-26 at bedtime ity of 00:00: as needed Medical Branch alendronate 2022-0 Yes Univer s 70 mg 1-26 ity of tablet 00:00: [place] [facility] zolpidem 10 2022-0 Yes 1 tablet [place] mg tablet 1-26 at bedtime ity of 00:00: as needed [place] [facility] alendronate 2022-0 Yes Univer s 70 mg 1-26 ity of tablet 00:00: [place] [facility] zolpidem 10 2022-0 Yes 1 tablet [place] mg tablet 1-26 at bedtime ity of 00:00: as needed Medical Branch alendronate 2022-0 Yes Univer s 70 mg 1-26 ity of tablet 00:00: [place] [facility] zolpidem 10 2022-0 Yes 1 tablet [place] mg tablet 1-26 at bedtime ity of 00:00: as needed Medical Branch alendronate 2022-0 Yes Univer s 70 mg 1-26 ity of tablet 00:00: [place] [address] [facility] Branch zolpidem 10 2022-0 Yes 1 tablet [place] mg tablet 1-26 at bedtime ity of 00:00: as needed Medical Branch alendronate 2022-0 Yes Univer s 70 mg 1-26 ity of tablet 00:00: [place] [address] [facility] Branch zolpidem 10 2022-0 Yes 1 tablet [place] mg tablet 1-26 at bedtime ity of 00:00: as needed [place] [facility] alendronate 2022-0 Yes Univer s 70 mg 1-26 ity of tablet 00:00: [place] [facility] zolpidem 10 2022-0 Yes 1 tablet [place] mg tablet 1-26 at bedtime ity of 00:00: as needed [place] [facility] alendronate 2022-0 Yes Univer s 70 mg 1-26 ity of tablet 00:00: [place] [address] [facility] Branch zolpidem 10 2022-0 Yes 1 tablet [place] mg tablet 1-26 at bedtime ity of 00:00: as needed [place] [facility] alendronate 2022-0 Yes Univer s 70 mg 1-26 ity of tablet 00:00: [place] [address] [facility] Branch zolpidem 10 2022-0 Yes 1 tablet [place] mg tablet 1-26 at bedtime ity of 00:00: as needed [place] [facility] alendronate 2022-0 Yes Univer s 70 mg 1-26 ity of tablet 00:00: [place] [address] [facility] Branch zolpidem 10 2022-0 Yes 1 tablet [place] mg tablet 1-26 at bedtime ity of 00:00: as needed [place] [facility] alendronate 2022-0 Yes Univer s 70 mg 1-26 ity of tablet 00:00: [place] [address] [facility] Branch zolpidem 10 2022-0 Yes 1 tablet [place] mg tablet 1-26 at bedtime ity of 00:00: as needed [place] [facility] alendronate 2022-0 Yes Univer s 70 mg 1-26 ity of tablet 00:00: [place] [address] [facility] Branch zolpidem 10 2022-0 Yes 1 tablet [place] mg tablet 1-26 at bedtime ity of 00:00: as needed [place] [facility] alendronate 2022-0 Yes Univer s 70 mg 1-26 ity of tablet 00:00: [place] [address] [facility] Branch zolpidem 10 2022-0 Yes 1 tablet [place] mg tablet 1-26 at bedtime ity of 00:00: as needed [place] [address] Medical Branch alendronate 2022-0 Yes Univer s 70 mg 1-26 ity of tablet 00:00: [place] [facility] zolpidem 10 2022-0 Yes 1 tablet [place] mg tablet 1-26 at bedtime ity of 00:00: as needed Medical Branch alendronate 2022-0 Yes Univer s 70 mg 1-26 ity of tablet 00:00: [place] [facility] zolpidem 10 2022-0 Yes 1 tablet [place] mg tablet 1-26 at bedtime ity of 00:00: as needed Medical Branch alendronate 2022-0 Yes Univer s 70 mg 1-26 ity of tablet 00:00: [place] [facility] zolpidem 10 2022-0 Yes 1 tablet [place] mg tablet 1-26 at bedtime ity of 00:00: as needed Medical Branch alendronate 2022-0 Yes Univer s 70 mg 1-26 ity of tablet 00:00: [place] [facility] zolpidem 10 2022-0 Yes 1 tablet [place] mg tablet 1-26 at bedtime ity of 00:00: as needed [place] [facility] alendronate 2022-0 Yes Univer s 70 mg 1-26 ity of tablet 00:00: [place] [facility] zolpidem 10 2022-0 Yes 1 tablet [place] mg tablet 1-26 at bedtime ity of 00:00: as needed [place] [facility] alendronate 2022-0 Yes Univer s 70 mg 1-26 ity of tablet 00:00: [place] [facility] zolpidem 10 2022-0 Yes 1 tablet [place] mg tablet 1-26 at bedtime ity of 00:00: as needed Medical Branch alendronate 2022-0 Yes Univer s 70 mg 1-26 ity of tablet 00:00: [place] [facility] zolpidem 10 2022-0 Yes 1 tablet [place] mg tablet 1-26 at bedtime ity of 00:00: as needed Medical Branch alendronate 2022-0 Yes Univer s 70 mg 1-26 ity of tablet 00:00: [place] [address] [facility] Branch zolpidem 10 2022-0 Yes 1 tablet [facility] [place] mg tablet 1-26 at bedtime ity of 00:00: as needed [place] [facility] alendronate 2023-0 Yes Univer s 70 mg 1-26 ity of tablet 00:00: [place] [facility] zolpidem 10 2022-0 Yes 1 tablet [place] mg tablet 1-26 at bedtime ity of 00:00: as needed Medical Branch alendronate 0 Yes Univer s 70 mg 1-26 ity of tablet 00:00: [place] [facility] zolpidem 10 2022-0 Yes 1 tablet [place] mg tablet 1-26 at bedtime ity of 00:00: as needed [place] [facility] alendronate 2022-0 Yes Univer s 70 mg 1-26 ity of tablet 00:00: [place] [facility] zolpidem 10 2022-0 Yes 1 tablet [place] mg tablet 1-26 at bedtime ity of 00:00: as needed [place] [facility] alendronate 2022-0 Yes Univer s 70 mg 1-26 ity of tablet 00:00: [place] [address] [facility] Branch zolpidem 10 2022-0 Yes 1 tablet [place] mg tablet 1-26 at bedtime ity of 00:00: as needed [place] [facility] alendronate 2022-0 Yes Univer s 70 mg 1-26 ity of tablet 00:00: [place] [address] [facility] Branch zolpidem 10 2022-0 Yes 1 tablet [place] mg tablet 1-26 at bedtime ity of 00:00: as needed [place] [facility] alendronate 2022-0 Yes Univer s 70 mg 1-26 ity of tablet 00:00: [place] [facility] zolpidem 10 2022-0 Yes 1 tablet [place] mg tablet 1-26 at bedtime ity of 00:00: as needed Medical Branch alendronate 2022-0 Yes Univer s 70 mg 1-26 ity of tablet 00:00: [place] [address] [facility] Branch zolpidem 10 2022-0 Yes 1 tablet [place] mg tablet 1-26 at bedtime ity of 00:00: as needed [place] [facility] alendronate 2022-0 Yes Univer s 70 mg 1-26 ity of tablet 00:00: [place] [address] [facility] Branch zolpidem 10 2022-0 Yes 1 tablet [place] mg tablet 1-26 at bedtime ity of 00:00: as needed [place] [address] [facility] Branch alendronate 2022-0 Yes Univer s 70 mg 1-26 ity of tablet 00:00: [place] [facility] zolpidem 10 2022-0 Yes 1 tablet [place] mg tablet 1-26 at bedtime ity of 00:00: as needed Medical Branch alendronate 2022-0 Yes Univer s 70 mg 1-26 ity of tablet 00:00: [place] [facility] zolpidem 10 2022-0 Yes 1 tablet [place] mg tablet 1-26 at bedtime ity of 00:00: as needed [place] [facility] alendronate 2022-0 Yes Univer s 70 mg 1-26 ity of tablet 00:00: [place] [facility] zolpidem 10 2022-0 Yes 1 tablet [place] mg tablet 1-26 at bedtime ity of 00:00: as needed [place] [facility] alendronate 2022-0 Yes Univer s 70 mg 1-26 ity of tablet 00:00: [place] [facility] zolpidem 10 2022-0 Yes 1 tablet [place] mg tablet 1-26 at bedtime ity of 00:00: as needed [place] [address] [facility] Branch alendronate 2022-0 Yes Univer s 70 mg 1-26 ity of tablet 00:00: [place] [address] [facility] Branch zolpidem 10 2022-0 Yes 1 tablet [place] mg tablet 1-26 at bedtime ity of 00:00: as needed [place] [facility] alendronate 2022-0 Yes Univer s 70 mg 1-26 ity of tablet 00:00: [place] [facility] zolpidem 10 2022-0 Yes 1 tablet [place] mg tablet 1-26 at bedtime ity of 00:00: as needed [place] [facility] alendronate 2022-0 Yes Univer s 70 mg 1-26 ity of tablet 00:00: [place] [facility] zolpidem 10 2022-0 Yes 1 tablet [place] mg tablet 1-26 at bedtime ity of 00:00: as needed [place] [facility] alendronate 2022-0 Yes Univer s 70 mg 1-26 ity of tablet 00:00: [place] [facility] zolpidem 10 2022-0 Yes 1 tablet [place] mg tablet 1-26 at bedtime ity of 00:00: as needed [place] [facility] alendronate 0 Yes Univer s 70 mg 1-26 ity of tablet 00:00: [place] [facility] zolpidem 10 0 Yes 1 tablet [facility] [place] mg tablet 1-26 at bedtime ity of 00:00: as needed [place] [facility] alendronate 0 Yes Univer s 70 mg 1-26 ity of tablet 00:00: [place] [facility] zolpidem 10 2022-0 Yes 1 tablet [place] mg tablet 1-26 at bedtime ity of 00:00: as needed [place] [facility] alendronate 0 Yes Univer s 70 mg 1-26 ity of tablet 00:00: [place] [address] [facility] Branch zolpidem 10 0 Yes 1 tablet [facility] [place] mg tablet 1-26 at bedtime ity of 00:00: as needed [place] [facility] alendronate 2022-0 Yes Univer s 70 mg 1-26 ity of tablet 00:00: [place] [facility] zolpidem 10 0 Yes 1 tablet [facility] mg tablet 1-26 at bedtime ity of 00:00: as needed [place] [facility] alendronate 2022-0 Yes Univer s 70 mg 1-26 ity of tablet 00:00: [place] [facility] zolpidem 10 0 Yes 1 tablet [facility] [place] mg tablet 1-26 at bedtime ity of 00:00: as needed [place] [facility] alendronate 2022-0 Yes Univer s 70 mg 1-26 ity of tablet 00:00: [place] [address] [facility] Branch zolpidem 10 2022-0 Yes 1 tablet [facility] mg tablet 1-26 at bedtime ity of 00:00: as needed [place] [address] [facility] Branch metoprolol 2022-0 2022- No [id number] 25mg Take 1 [facility] succinate -08 08- tablet by ity of XL (TOPROL 00:00: 04:59 mouth in [place] XL) 25 mg 00 :00 the Medical 24 hr morning Branch tablet for 90 days. metoprolol 2022- No [id number] 25mg Take 1 [facility] succinate -08 08- tablet by ity of XL (TOPROL 00:00: 04:59 mouth [place] XL) 25 mg 00 :00 the Medical 24 hr morning Branch tablet for 90 days. metoprolol No [id number] 25mg Take 1 [facility] succinate 1-26 04-27 tablet by ity of XL (TOPROL 00:00: 04:59 mouth in [place] XL) 25 mg 00 :00 the Medical 24 hr morning Branch tablet for 90 days. metoprolol 2022- No [id number] 25mg Take 1 [facility] succinate 1-26 04-27 tablet by ity of XL (TOPROL 00:00: 04:59 mouth in [place] XL) 25 mg 00 :00 the Medical 24 hr morning Branch tablet for 90 days. metoprolol No [id number] 25mg Take 1 [facility] succinate 1-26 04-27 tablet by ity of XL (TOPROL 00:00: 04:59 mouth in [place] XL) 25 mg 00 :00 the Medical 24 hr morning Branch tablet for 90 days. metoprolol No [id number] 25mg Take 1 [facility] succinate 1-26 04-27 tablet by ity of XL (TOPROL 00:00: 04:59 mouth in [place] XL) 25 mg 00 :00 the Medical 24 hr morning Branch tablet for 90 days. metoprolol No [id number] 25mg Take 1 [facility] succinate 1-26 02-27 tablet by ity of XL (TOPROL 00:00: 00:00 mouth in [place] XL) 25 mg 00 :00 the Medical 24 hr morning Branch tablet for 90 days. metoprolol No [id number] 25mg Take 1 [facility] succinate 1-26 02-27 tablet by ity of XL (TOPROL 00:00: 00:00 mouth [place] XL) 25 mg 00 :00 the Medical 24 hr morning Branch tablet for 90 days. metoprolol No [id number] 25mg Take 1 [facility] succinate 1-26 02-27 tablet by ity of XL (TOPROL 00:00: 00:00 mouth [place] XL) 25 mg 00 :00 the Medical 24 hr morning Branch tablet for 90 days. metoprolol 2022- No [id number] 25mg Take 1 [facility] succinate 05-10- tablet by ity of XL (TOPROL 00:00: 00:00 mouth [place] XL) 25 mg 00 :00 the Medical 24 hr morning Branch tablet for 90 days. metoprolol 2022- No [id number] 25mg Take 1 [facility] succinate 05-10 tablet by ity of XL (TOPROL 00:00: 00:00 mouth [place] XL) 25 mg 00 :00 the Medical 24 hr morning Branch tablet for 90 days. Diclofenac Yes Univers Sodium 1 % 1-25 ity of gel 00:00: [place] 00 Medical Branch Diclofenac 2022- No Univer s Sodium 1 % 1- ity of gel 00:00: 00:00 [place] 00 :00 Medical Branch Diclofenac 2022-0 2022- No Univer s Sodium 1 % 125 - ity of gel 00:00: 00:00 [place] 00 :00 Medical Branch Diclofenac 2022-0 2022- No Univer s Sodium 1 % 1- ity of gel 00:00: 00:00 [place] 00 :00 Medical Branch Diclofenac 2022-0 2022- No Univer s Sodium 1 % 125 - ity of gel 00:00: 00:00 [place] 00 :00 Medical Branch Diclofenac 2022-0 2022- No Univer s Sodium 1 % 125 - ity of gel 00:00: 00:00 [place] 00 :00 Medical Branch ezetimibe 2021-04 Yes 10mg Take 1 Univer s (ZETIA) 10 2-19 tablet by ity of mg tablet 00:00: [place] the Medical morning. Branch metoprolol 2021-04 Yes [id number] 25mg Take 1 U nivers tartrate 25 2-19 tablet by [facility]y of mg tablet 00:00[place] the [facility] morning Branch and 1 tablet in the evening. ezetimibe 2021-04 Yes 10mg Take 1 Univer s (ZETIA) 10 2-19 tablet by [facility]y of mg tablet 00:00: [place] the Medical morning. Branch metoprolol 2021-04 Yes [id number] 25mg Take 1 U nivers tartrate 25 2-19 tablet by [facility]y of mg tablet 00:00: [place] the Medical morning Branch and 1 tablet in the evening. ezetimibe 2021-04 Yes 10mg Take 1 Univer s (ZETIA) 10 2-19 tablet by [facility] of mg tablet 00:00: [place] the Medical morning. Branch metoprolol 2021-04 Yes [id number] 25mg Take 1 U nivers tartrate 25 2-19 tablet by [facility]y of mg tablet 00:00: [place] the Medical morning Branch and 1 tablet in the evening. ezetimibe 2021-04 Yes 10mg Take 1 Univer s (ZETIA) 10 2-19 tablet by [facility] of mg tablet 00:00: [place] the Medical morning. Branch metoprolol 2021-04 Yes [id number] 25mg Take 1 U nivers tartrate 25 2-19 tablet by [facility] of mg tablet 00:00: [place] the [facility] morning Branch and 1 tablet in the evening. ezetimibe 2021-04 Yes 10mg Take 1 Univer s (ZETIA) 10 2-19 tablet by ity of mg tablet 00:00: [place] the Medical morning. Branch metoprolol 2021-04 Yes [id number] 25mg Take 1 [facility] tartrate 25 2-19 tablet by [facility] tablet 00:[facility]: [place] 00 the Medical morning Branch and 1 tablet in the evening. ezetimibe 2021-04 Yes 10mg Take 1 [facility] (ZETIA) 10 2-19 tablet by [facility] tablet 00:00: [place] 00 the Medical morning. Branch metoprolol 2021-04 Yes [id number] 25mg Take 1 [facility] tartrate 25 2-19 tablet by [facility] tablet 00:00: [place] 00 the Medical morning Branch and 1 tablet in the evening. ezetimibe 2021-04 Yes 10mg Take 1 [facility] (ZETIA) 10 2-19 tablet by [facility] tablet 00:00: [place] 00 the Medical morning. Branch metoprolol 2021-04 Yes [id number] 25mg Take 1 [facility] tartrate 25 [...] the Medical morning. Branch metoprolol 2021-04- No [id number] 25mg Take 1 [facility] tartrate 25 2-19 -26 tablet by [facility] mg tablet 00:00: 00:00 mouth in [place] 00 :00 the Medical morning Branch and 1 tablet in the evening. metoprolol 2021-04- No [id number] 25mg Take 1 [facility] tartrate 25 2-19 -26 tablet by [facility] y of mg tablet 00:00: 00:00 mouth in [place] 00 :00 the Medical morning Branch and 1 tablet in the evening. warfarin 2021-04 Yes [id number] 1mg Take 1 [facility] mg tablet 2-01 tablet by [facility] o f 00:00: mouth [place] 00 every Medical evening. Branch Alternate take 1mg x3 days, then 2mg x 4 days warfarin 2021-04 Yes [id number] 1mg Take 1 [facility] mg tablet 2-01 tablet by [facility] o f 00:00: mouth [place] 00 every Medical evening. Branch Alternate take 1mg x3 days, then 2mg x 4 days dofetilide 2021-04 Yes [id number] 125ug Take 1 [facility] 125 mcg 2-01 capsule by [facility] capsule 00:00: mouth [place] 00 every 12 Medical (twelve) Branch hours. warfarin 2021-04 Yes [id number] 1mg Take 1 [facility] mg tablet 2-01 tablet by [facility] o f 00:00: mouth [place] 00 every Medical evening. Branch Alternate take 1mg x3 days, then 2mg x 4 days dofetilide 2021-04 Yes [id number] 125ug Take 1 [facility] 125 mcg 2-01 capsule by [facility] capsule 00:00: mouth [place] 00 every 12 Medical (twelve) Branch hours. warfarin 2021-04 Yes [id number] 1mg Take 1 [facility] mg tablet 2-01 tablet by [facility] o f 00:00: mouth [place] 00 every Medical evening. Branch Alternate take 1mg x3 days, then 2mg x 4 days dofetilide 2021-04 Yes [id number] 125ug Take 1 [facility] 125 mcg 2-01 capsule by [facility] of capsule 00:00: mouth [place] 00 every 12 Medical (twelve) Branch hours. warfarin 2021-04 Yes [id number] 1mg Take 1 [facility] mg tablet 2-01 tablet by [facility] o f 00:00: mouth [place] 00 every Medical evening. Branch Alternate take 1mg x3 days, then 2mg x 4 days dofetilide 2021-04 Yes [id number] 125ug Take 1 [facility] 125 mcg 2-01 capsule by [facility] capsule 00:00: mouth [place] 00 every 12 Medical (twelve) Branch hours. warfarin 2021-04 Yes [id number] 1mg Take 1 [facility] mg tablet 2-01 tablet by [facility] o f 00:00: mouth [place] 00 every Medical evening. Branch Alternate take 1mg x3 days, then 2mg x 4 days dofetilide 2021-04 Yes [id number] 125ug Take 1 [facility] 125 mcg 2-01 capsule by [facility] of capsule 00:00: mouth [place] 00 every 12 Medical (twelve) Branch hours. warfarin 2021-04 Yes [id number] 1mg Take 1 [facility] mg tablet 2-01 tablet by [facility] o f 00:00: mouth [place] 00 every Medical evening. Branch Alternate take 1mg x3 days, then 2mg x 4 days dofetilide 2021-04 Yes [id number] 125ug Take 1 [facility] 125 mcg 2-01 capsule by [facility] of capsule 00:00: mouth [place] 00 every 12 Medical (twelve) Branch hours. warfarin 2021-04 Yes [id number] 1mg Take 1 [facility] mg tablet 2-01 tablet by [facility] o f 00:00: mouth [place] 00 every Medical evening. Branch Alternate take 1mg x3 days, then 2mg x 4 days dofetilide 2021-04 Yes [id number] 125ug Take 1 [facility] 125 mcg 2-01 capsule by [facility] of capsule 00:00: mouth [place] 00 every 12 Medical (twelve) Branch hours. warfarin 2021-04 Yes [id number] 1mg Take 1 [facility] mg tablet 2-01 tablet by [facility] o f 00:00: mouth [place] 00 every Medical evening. Branch Alternate take 1mg x3 days, then 2mg x 4 days dofetilide 2021-04 Yes [id number] 125ug Take 1 [facility] 125 mcg 2-01 capsule by [facility] of capsule 00:00: mouth [place] 00 every 12 Medical (twelve) Branch hours. warfarin 2021-04 Yes [id number] 1mg Take 1 [facility] mg tablet 2-01 tablet by [facility] o f 00:00: mouth [place] 00 every Medical evening. Branch Alternate take 1mg x3 days, then 2mg x 4 days dofetilide 2021-04 Yes [id number] 125ug Take 1 [facility] 125 mcg 2-01 capsule by [facility] capsule 00:00: mouth [place] 00 every 12 Medical (twelve) Branch hours. warfarin 2021-04 Yes [id number] 1mg Take 1 [facility] mg tablet 2-01 tablet by [facility] o f 00:00: mouth [place] 00 every Medical evening. Branch Alternate take 1mg x3 days, then 2mg x 4 days dofetilide 2021-04 Yes [id number] 125ug Take 1 [facility] 125 mcg 2-01 capsule by [facility] of capsule 00:00: mouth [place] 00 every 12 Medical (twelve) Branch hours. warfarin 2021-04 Yes [id number] 1mg Take 1 [facility] mg tablet 2-01 tablet by [facility] o f 00:00: mouth [place] 00 every Medical evening. Branch Alternate take 1mg x3 days, then 2mg x 4 days dofetilide 2021-04 Yes [id number] 125ug Take 1 [facility] 125 mcg 2-01 capsule by [facility] capsule 00:00: mouth [place] 00 every 12 Medical (twelve) Branch hours. warfarin 2021-04 Yes [id number] 1mg Take 1 [facility] mg tablet 2-01 tablet by [facility] o f 00:00: mouth [place] 00 every Medical evening. Branch Alternate take 1mg x3 days, then 2mg x 4 days dofetilide 2021-04 Yes [id number] 125ug Take 1 [facility] 125 mcg 2-01 capsule by [facility] of capsule 00:00: mouth [place] 00 every 12 Medical (twelve) Branch hours. warfarin 2021-04 Yes [id number] 1mg Take 1 [facility] mg tablet 2-01 tablet by [facility] o f 00:00: mouth [place] 00 every Medical evening. Branch Alternate take 1mg x3 days, then 2mg x 4 days dofetilide 2021-04 Yes [id number] 125ug Take 1 [facility] 125 mcg 2-01 capsule by [facility] of capsule 00:00: mouth [place] 00 every 12 Medical (twelve) Branch hours. warfarin 2021-04 Yes [id number] 1mg Take 1 [facility] mg tablet 2-01 tablet by [facility] o f 00:00: mouth [place] 00 every Medical evening. Branch Alternate take 1mg x3 days, then 2mg x 4 days dofetilide 2021-04 Yes [id number] 125ug Take 1 [facility] 125 mcg 2-01 capsule by [facility] of capsule 00:00: mouth [place] 00 every 12 Medical (twelve) Branch hours. warfarin 2021-04 Yes [id number] 1mg Take 1 [facility] mg tablet 2-01 tablet by [facility] o f 00:00: mouth [place] 00 every Medical evening. Branch Alternate take 1mg x3 days, then 2mg x 4 days dofetilide 2021-04 Yes [id number] 125ug Take 1 [facility] 125 mcg 2-01 capsule by [facility] capsule 00:00: mouth [place] 00 every 12 Medical (twelve) Branch hours. warfarin 2021-04- No [id number] 1mg Take 1 [facility] mg tablet 2-04 16- tablet by [facility] of 00:00: 00:00 mouth [place] 00 :00 every Medical evening. Branch Alternate take 1mg x3 days, then 2mg x 4 days dofetilide 2021-04- No [id number] 125ug Take 1 [facility] 125 mcg 2-01 -27 capsule by [facility] o f capsule 00:00: 00:00 mouth [place] 00 :00 every 12 Medical (twelve) Branch hours. warfarin 2021-04- No [id number] 1mg Take 1 [facility] mg tablet 2-04 16-27 tablet by [facility] of 00:00: 00:00 mouth [place] 00 :00 every Medical evening. Branch Alternate take 1mg x3 days, then 2mg x 4 days dofetilide 2021-04- No [id number] 125ug Take 1 [facility] 125 mcg 05-16 capsule by [facility] o f capsule 00:00: 00:00 mouth [place] 00 :00 every 12 Medical (twelve) Branch hours. warfarin 1 2021-04- No [id number] 1mg Take 1 [facility] mg tablet 05-16 tablet by [facility] of 00:00: 00:00 mouth [place] 00 :00 every Medical evening. Branch Alternate take 1mg x3 days, then 2mg x 4 days dofetilide 2021-04- No [id number] 125ug Take 1 [facility] 125 mcg 05-16 capsule by [facility] o f capsule 00:00: 00:00 mouth [place] 00 :00 every 12 Medical (twelve) Branch hours. warfarin 1 2021-04- No [id number] 1mg Take 1 [facility] mg tablet 05-16 tablet by [facility] of 00:00: 00:00 mouth [place] 00 :00 every Medical evening. Branch Alternate take 1mg x3 days, then 2mg x 4 days dofetilide 2021-04- No [id number] 125ug Take 1 [facility] 125 mcg 05-16 capsule by [facility] o f capsule 00:00: 00:00 mouth [place] 00 :00 every 12 Medical (twelve) Branch hours. warfarin 1 2021-04- No [id number] 1mg Take 1 [facility] mg tablet 05-16 tablet by [facility] of 00:00: 00:00 mouth [place] 00 :00 every Medical evening. Branch Alternate take 1mg x3 days, then 2mg x 4 days dofetilide 2021-04- No [id number] 125ug Take 1 [facility] 125 mcg 05-16 capsule by [facility] o f capsule 00:00: 00:00 mouth [place] 00 :00 every 12 Medical (twelve) Branch hours. warfarin 1 2021-04 Yes [id number] 1mg Take 1 [facility] mg tablet 04-15 tablet by [facility] o f 00:00: mouth [place] 00 every Medical evening. Branch Alternate take 1mg x4 days, then 2mg x 3 days warfarin 1 2021-04 Yes [id number] 1mg Take 1 [facility] mg tablet 1-01 tablet by [facility] o f 00:00: mouth [place] 00 every Medical evening. Branch Alternate take 1mg x4 days, then 2mg x 3 days warfarin 2021-04 Yes [id number] 1mg Take 1 [facility] mg tablet 1-01 tablet by [facility] o f 00:00: mouth [place] 00 every Medical evening. Branch Alternate take 1mg x4 days, then 2mg x 3 days warfarin 2021-04 Yes [id number] 1mg Take 1 [facility] mg tablet 1-01 tablet by [facility] o f 00:00: mouth [place] 00 every Medical evening. Branch Alternate take 1mg x4 days, then 2mg x 3 days warfarin 2021-04 Yes [id number] 1mg Take 1 [facility] mg tablet 1-01 tablet by [facility] o f 00:00: mouth [place] 00 every Medical evening. Branch Alternate take 1mg x4 days, then 2mg x 3 days warfarin 2021-04 Yes [id number] 1mg Take 1 [facility] mg tablet 1-01 tablet by [facility] o f 00:00: mouth [place] 00 every Medical evening. Branch Alternate take 1mg x4 days, then 2mg x 3 days warfarin 2021-04 Yes [id number] 1mg Take 1 [facility] mg tablet 1-01 tablet by [facility] o f 00:00: mouth [place] 00 every Medical evening. Branch Alternate take 1mg x4 days, then 2mg x 3 days warfarin 2021-04 Yes [id number] 1mg Take 1 [facility] mg tablet 1-01 tablet by [facility] o f 00:00: mouth [place] 00 every Medical evening. Branch Alternate take 1mg x4 days, then 2mg x 3 days warfarin 2021-04 Yes [id number] 1mg Take 1 [facility] mg tablet 1-01 tablet by [facility] o f 00:00: mouth [place] 00 every Medical evening. Branch Alternate take 1mg x4 days, then 2mg x 3 days warfarin 2021-04 Yes [id number] 1mg Take 1 [facility] mg tablet 1-01 tablet by [facility] o f 00:00: mouth [place] 00 every Medical evening. Branch Alternate take 1mg x4 days, then 2mg x 3 days warfarin 2021-04 Yes [id number] 1mg Take 1 [facility] mg tablet 1-01 tablet by [facility] o f 00:00: mouth [place] 00 every Medical evening. Branch Alternate take 1mg x4 days, then 2mg x 3 days warfarin 2021-04- No [id number] 1mg Take 1 [facility] mg tablet 04-15 tablet by [facility] of 00:00: 00:00 mouth [place] 00 :00 every Medical evening. Branch Alternate take 1mg x4 days, then 2mg x 3 days warfarin 2021-04 Yes [id number] 1mg Take 1 [facility] mg tablet 0-17 tablet by [facility] o f 00:00: mouth [place] 00 every Medical evening. Branch Alternate take 1mg x4 days, then 2mg x 3 days warfarin 2021-04- No [id number] 1mg Take 1 [facility] mg tablet 0-17 [...] 00 the Medical morning. Branch ezetimibe 2-0 2022- No 10mg Take 1 [facility] (ZETIA) 10 9-02 12-19 tablet by [facility] mg tablet 00:00: 00:00 mouth in [place] 00 :00 the Medical morning. Branch warfarin 1 0 Yes [id number] 1mg Take 1 [facility] mg tablet 8-24 tablet by [facility] o f 00:00: mouth [place] 00 every Medical evening. Branch Alternate take 1mg x2days, then 2mg x 1 day warfarin 1 2021-0 Yes [id number] 1mg Take 1 [facility] mg tablet 8-24 tablet by [facility] o f 00:00: mouth [place] 00 every Medical evening. Branch Alternate take 1mg x2days, then 2mg x 1 day warfarin 1 2021-0 Yes [id number] 1mg Take 1 [facility] mg tablet 8-24 tablet by [facility] o f 00:00: mouth [place] 00 every Medical evening. Branch Alternate take 1mg x2days, then 2mg x 1 day warfarin 1 2021-0 Yes [id number] 1mg Take 1 [facility] mg tablet 8-24 tablet by [facility] o f 00:00: mouth [place] 00 every Medical evening. Branch Alternate take 1mg x2days, then 2mg x 1 day warfarin 1 Yes [id number] 1mg Take 1 [facility] mg tablet 8-24 tablet by [facility] o f 00:00: mouth [place] 00 every Medical evening. Branch Alternate take 1mg x2days, then 2mg x 1 day warfarin 1 Yes [id number] 1mg Take 1 [facility] mg tablet 8-24 tablet by [facility] o f 00:00: mouth [place] 00 every Medical evening. Branch Alternate take 1mg x2days, then 2mg x 1 day warfarin 1 Yes [id number] 1mg Take 1 [facility] mg tablet 8-24 tablet by [facility] o f 00:00: mouth [place] 00 every Medical evening. Branch Alternate take 1mg x2days, then 2mg x 1 day warfarin 1 Yes [id number] 1mg Take 1 [facility] mg tablet 8-24 tablet by [facility] o f 00:00: mouth [place] 00 every Medical evening. Branch Alternate take 1mg x2days, then 2mg x 1 day warfarin Yes [id number] 1mg Take 1 [facility] mg tablet 8-24 tablet by [facility] o f 00:00: mouth [place] 00 every Medical evening. Branch Alternate take 1mg x2days, then 2mg x 1 day warfarin Yes [id number] 1mg Take 1 [facility] mg tablet 8-24 tablet by [facility] o f 00:00: mouth [place] 00 every Medical evening. Branch Alternate take 1mg x2days, then 2mg x 1 day warfarin 1 Yes [id number] 1mg Take 1 [facility] mg tablet 8-24 tablet by [facility] o f 00:00: mouth [place] 00 every Medical evening. Branch Alternate take 1mg x2days, then 2mg x 1 day warfarin 1 Yes [id number] 1mg Take 1 [facility] mg tablet 8-24 tablet by [facility] o f 00:00: mouth [place] 00 every Medical evening. Branch Alternate take 1mg x2days, then 2mg x 1 day warfarin 1 Yes [id number] 1mg Take 1 [facility] mg tablet 8-24 tablet by [facility] o f 00:00: mouth [place] 00 every Medical evening. Branch Alternate take 1mg x2days, then 2mg x 1 day warfarin 1 2021- No [id number] 1mg Take 1 [facility] mg tablet 8-17 tablet by [facility] of 00:00: 00:00 mouth [place] 00 :00 every Medical evening. Branch Alternate take 1mg x2days, then 2mg x 1 day warfarin 1 2021- No [id number] 2mg Take 2 [facility] mg tablet 12-05 08-24 tablets by [facility] of 00:00: 00:00 mouth [place] 00 :00 every Medical evening. Branch dofetilide 2021- No [id number] 125ug Take 1 [facility] 125 mcg 8-19 08-27 capsule by [facility] o f capsule 00:00: 04:59 mouth [place] 00 :00 every 12 Medical (twelve) Branch hours for 7 days. dofetilide 2021- No [id number] 125ug Take 1 [facility] 125 mcg 8-19 08-27 capsule by [facility] o f capsule 00:00: 04:59 mouth [place] 00 :00 every 12 Medical (twelve) Branch hours for 7 days. dofetilide 2021- No [id number] 125ug Take 1 [facility] 125 mcg 8-17 11-16 capsule by [facility] o f capsule 00:00: 05:59 mouth [place] 00 :00 every 12 Medical (twelve) Branch hours for 90 days. dofetilide 2021- No [id number] 125ug Take 1 [facility] 125 mcg 8-17 11-16 capsule by [facility] o f capsule 00:00: 05:59 mouth [place] 00 :00 every 12 Medical (twelve) Branch hours for 90 days. dofetilide 2021- No [id number] 125ug Take 1 [facility] 125 mcg 8-17 11-16 capsule by [facility] o f capsule 00:00: 05:59 mouth [place] 00 :00 every 12 Medical (twelve) Branch hours for 90 days. dofetilide 2021- No [id number] 125ug Take 1 [facility] 125 mcg 8-17 11-16 capsule by [facility] o f capsule 00:00: 05:59 mouth [place] 00 :00 every 12 Medical (twelve) Branch hours for 90 days. dofetilide 2021- No [id number] 125ug Take 1 [facility] 125 mcg 8-17 11-16 capsule by [facility] o f capsule 00:00: 05:59 mouth [place] 00 :00 every 12 Medical (twelve) Branch hours for 90 days. dofetilide 2021- No [id number] 125ug Take 1 [facility] 125 mcg 8-17 11-16 capsule by [facility] o f capsule 00:00: 05:59 mouth [place] 00 :00 every 12 Medical (twelve) Branch hours for 90 days. dofetilide 2- No [id number] 125ug Take 1 [facility] 125 mcg 8-17 11-16 capsule by [facility] o f capsule 00:00: 05:59 mouth [place] 00 :00 every 12 Medical (twelve) Branch hours for 90 days. dofetilide 2021- No [id number] 125ug Take 1 [facility] 125 mcg 8-17 11-16 capsule by [facility] o f capsule 00:00: 05:59 mouth [place] 00 :00 every 12 Medical (twelve) Branch hours for 90 days. dofetilide 2021- No [id number] 125ug Take 1 [facility] 125 mcg 8-17 11-16 capsule by [facility] o f capsule 00:00: 05:59 mouth [place] 00 :00 every 12 Medical (twelve) Branch hours for 90 days. dofetilide 2021- No [id number] 125ug Take 1 [facility] 125 mcg 8-17 11-16 capsule by [facility] o f capsule 00:00: 05:59 mouth [place] 00 :00 every 12 Medical (twelve) Branch hours for 90 days. dofetilide 2021- No [id number] 125ug Take 1 [facility] 125 mcg 8-17 11-16 capsule by [facility] o f capsule 00:00: 05:59 mouth [place] 00 :00 every 12 Medical (twelve) Branch hours for 90 days. dofetilide 2021- No [id number] 125ug Take 1 [facility] 125 mcg 8-17 11-16 capsule by [facility] o f capsule 00:00: 05:59 mouth [place] 00 :00 every 12 Medical (twelve) Branch hours for 90 days. dofetilide 2021- No [id number] 125ug Take 1 [facility] 125 mcg 8-17 11-16 capsule by [facility] o f capsule 00:00: 05:59 mouth [place] 00 :00 every 12 Medical (twelve) Branch hours for 90 days. dofetilide 2- No [id number] 125ug Take 1 [facility] 125 mcg 8-17 11-16 capsule by [facility] o f capsule 00:00: 05:59 mouth [place] 00 :00 every 12 Medical (twelve) Branch hours for 90 days. dofetilide 2021- No [id number] 125ug Take 1 [facility] 125 mcg 8-17 11-16 capsule by [facility] o f capsule 00:00: 05:59 mouth [place] 00 :00 every 12 Medical (twelve) Branch hours for 90 days. dofetilide 2021- No [id number] 125ug Take 1 [facility] 125 mcg 8-17 11-16 capsule by [facility] o f capsule 00:00: 05:59 mouth [place] 00 :00 every 12 Medical (twelve) Branch hours for 90 days. dofetilide 2021- No [id number] 125ug Take 1 [facility] 125 mcg 8-17 11-16 capsule by [facility] o f capsule 00:00: 05:59 mouth [place] 00 :00 every 12 Medical (twelve) Branch hours for 90 days. dofetilide 2021- No [id number] 125ug Take 1 [facility] 125 mcg 8-17 11-16 capsule by [facility] o f capsule 00:00: 05:59 mouth [place] 00 :00 every 12 Medical (twelve) Branch hours for 90 days. dofetilide 2021- No [id number] 125ug Take 1 [facility] 125 mcg 8-17 11-16 capsule by [facility] o f capsule 00:00: 05:59 mouth [place] 00 :00 every 12 Medical (twelve) Branch hours for 90 days. dofetilide 2021- No [id number] 125ug Take 1 [facility] 125 mcg 8-17 11-16 capsule by [facility] o f capsule 00:00: 05:59 mouth [place] 00 :00 every 12 Medical (twelve) Branch hours for 90 days. atorvastati Yes 80mg Take 1 [facility] ers n 80 mg 7-12 tablet by [facility] of tablet 00:00: mouth at [place] 00 bedtime. Medical Branch atorvastati Yes 80mg Take 1 [facility] ers n 80 mg 7-12 tablet by [facility] of tablet 00:00: mouth at [place] 00 bedtime. Medical Branch atorvastati Yes 80mg Take 1 [facility] ers n 80 mg 7-12 tablet by [facility] of tablet 00:00: mouth at [place] [address] bedtime. Medical Branch atorvastati 2-0 Yes 80mg Take 1 [facility] ers n 80 mg 7-12 tablet by [facility] of tablet 00:00: mouth at [place] [address] bedtime. Medical Branch atorvastati 2-0 Yes 80mg Take 1 [facility] ers n 80 mg 7-12 tablet by [facility] of tablet 00:00: mouth at [place] [address] bedtime. Medical Branch atorvastati 2-0 Yes 80mg Take 1 [facility] ers n 80 mg 7-12 tablet by [facility] of tablet 00:00: mouth at [place] [address] bedtime. Medical Branch atorvastati 2-0 Yes 80mg Take 1 [facility] ers n 80 mg 7-12 tablet by [facility] of tablet 00:00: mouth at [place] [address] bedtime. Medical Branch atorvastati 2-0 Yes 80mg Take 1 [facility] ers n 80 mg 7-12 tablet by [facility] of tablet 00:00: mouth at [place] [address] bedtime. Medical Branch atorvastati 2-0 Yes 80mg Take 1 [facility] n 80 mg 7-12 tablet by [facility] of tablet 00:00: mouth at [place] [address] bedtime. Medical Branch atorvastati 2-0 Yes 80mg Take 1 [facility] n 80 mg 7-12 tablet by [facility] of tablet 00:00: mouth at [place] [address] bedtime. Medical Branch atorvastati 2-0 Yes 80mg Take 1 [facility] n 80 mg 7-12 tablet by [facility] of tablet 00:00: mouth at [place] [address] bedtime. Medical Branch atorvastati 2-0 Yes 80mg Take 1 [facility] n 80 mg 7-12 tablet by [facility] of tablet 00:00: mouth at [place] [address] bedtime. Medical Branch atorvastati 2-0 Yes 80mg Take 1 [facility] n 80 mg 7-12 tablet by [facility] of tablet 00:00: mouth at [place] [address] bedtime. Medical Branch atorvastati 2-0 Yes 80mg Take 1 [facility] n 80 mg 7-12 tablet by [facility] of tablet 00:00: mouth at [place] [address] bedtime. Medical Branch atorvastati 2022-0 Yes 80mg Take 1 [facility] n 80 mg 7-12 tablet by [facility] of tablet 00:00: mouth at [place] [address] bedtime. Medical Branch atorvastati 2-0 Yes 80mg Take 1 [facility] n 80 mg 7-12 tablet by [facility] of tablet 00:00: mouth at [place] [address] bedtime. Medical Branch atorvastati 2-0 Yes 80mg Take 1 [facility] n 80 mg 7-12 tablet by [facility] of tablet 00:00: mouth at [place] bedtime. Medical Branch atorvastati 2-0 Yes 80mg Take 1 [facility] n 80 mg 7-12 tablet by [facility] of tablet 00:00: mouth at [place] bedtime. Medical Branch atorvastati 2-0 Yes 80mg Take 1 [facility] n 80 mg 7-12 tablet by [facility] of tablet 00:00: mouth at [place] bedtime. Medical Branch atorvastati 2-0 Yes 80mg Take 1 [facility] n 80 mg 7-12 tablet by [facility] of tablet 00:00: mouth at [place] [address] bedtime. Medical Branch atorvastati 2-0 Yes 80mg Take 1 [facility] n 80 mg 7-12 tablet by [facility] of tablet 00:00: mouth at [place] [address] bedtime. Medical Branch atorvastati 2-0 Yes 80mg Take 1 [facility] n 80 mg 7-12 tablet by [facility] of tablet 00:00: mouth at [place] [address] bedtime. Medical Branch atorvastati 2-0 Yes 80mg Take 1 [facility] n 80 mg 7-12 tablet by [facility] of tablet 00:00: mouth at [place] [address] bedtime. Medical Branch atorvastati 2-0 Yes 80mg Take 1 [facility] n 80 mg 7-12 tablet by [facility] of tablet 00:00: mouth at [place] [address] bedtime. Medical Branch atorvastati 2-0 Yes 80mg Take 1 [facility] n 80 mg 7-12 tablet by [facility] of tablet 00:00: mouth at [place] [address] bedtime. Medical Branch atorvastati 2-0 Yes 80mg Take 1 [facility] ers n 80 mg 7-12 tablet by [facility] of tablet 00:00: mouth at [place] [address] bedtime. Medical Branch atorvastati 2-0 Yes 80mg Take 1 [facility] ers n 80 mg 7-12 tablet by [facility] of tablet 00:00: mouth at [place] [address] bedtime. Medical Branch atorvastati 2-0 Yes 80mg Take 1 [facility] ers n 80 mg 7-12 tablet by [facility] of tablet 00:00: mouth at [place] [address] bedtime. Medical Branch atorvastati 2-0 Yes 80mg Take 1 [facility] ers n 80 mg 7-12 tablet by [facility] of tablet 00:00: mouth at [place] [address] bedtime. Medical Branch atorvastati 2-0 Yes 80mg Take 1 [facility] n 80 mg 7-12 tablet by [facility] of tablet 00:00: mouth at [place] [address] bedtime. Medical Branch atorvastati 2-0 Yes 80mg Take 1 [facility] ers n 80 mg 7-12 tablet by [facility] of tablet 00:00: mouth at [place] [address] bedtime. Medical Branch atorvastati 2-0 Yes 80mg Take 1 [facility] ers n 80 mg 7-12 tablet by [facility] of tablet 00:00: mouth at [place] [address] bedtime. Medical Branch atorvastati 2-0 Yes 80mg Take 1 [facility] n 80 mg 7-12 tablet by [facility] of tablet 00:00: mouth at [place] [address] bedtime. Medical Branch atorvastati 2-0 Yes 80mg Take 1 [facility] ers n 80 mg 7-12 tablet by [facility] of tablet 00:00: mouth at [place] [address] bedtime. Medical Branch atorvastati 2-0 Yes 80mg Take 1 [facility] n 80 mg 7-12 tablet by [facility] of tablet 00:00: mouth at [place] [address] bedtime. Medical Branch atorvastati 2-0 Yes 80mg Take 1 [facility] n 80 mg 7-12 tablet by [facility] of tablet 00:00: mouth at [place] [address] bedtime. Medical Branch atorvastati 2-0 Yes 80mg Take 1 [facility] n 80 mg 7-12 tablet by [facility] of tablet 00:00: mouth at [place] [address] bedtime. Medical Branch atorvastati 2-0 Yes 80mg Take 1 [facility] n 80 mg 7-12 tablet by [facility] of tablet 00:00: mouth at [place] [address] bedtime. Medical Branch atorvastati 2-0 Yes 80mg Take 1 [facility] ers n 80 mg 7-12 tablet by [facility] of tablet 00:00: mouth at [place] [address] bedtime. Medical Branch atorvastati 2022-0 Yes 80mg Take 1 [facility] n 80 mg 7-12 tablet by [facility] of tablet 00:00: mouth at [place] [address] bedtime. Medical Branch atorvastati 2-0 Yes 80mg Take 1 [facility] n 80 mg 7-12 tablet by [facility] of tablet 00:00: mouth at [place] [address] bedtime. Medical Branch atorvastati 2-0 Yes 80mg Take 1 [facility] n 80 mg 7-12 tablet by [facility] of tablet 00:00: mouth at [place] bedtime. Medical Branch atorvastati 2-0 Yes 80mg Take 1 [facility] ers n 80 mg 7-12 tablet by [facility] of tablet 00:00: mouth at [place] bedtime. Medical Branch atorvastati 2-0 Yes 80mg Take 1 [facility] n 80 mg 7-12 tablet by [facility] of tablet 00:00: mouth at [place] bedtime. Medical Branch atorvastati 2-0 Yes 80mg Take 1 [facility] n 80 mg 7-12 tablet by [facility] of tablet 00:00: mouth at [place] [address] bedtime. Medical Branch atorvastati 2-0 Yes 80mg Take 1 [facility] n 80 mg 7-12 tablet by [facility] of tablet 00:00: mouth at [place] [address] bedtime. Medical Branch atorvastati 2-0 Yes 80mg Take 1 [facility] n 80 mg 7-12 tablet by [facility] of tablet 00:00: mouth at [place] [address] bedtime. Medical Branch atorvastati 2-0 Yes 80mg Take 1 [facility] n 80 mg 7-12 tablet by [facility] of tablet 00:00: mouth at [place] [address] bedtime. Medical Branch atorvastati 2-0 Yes 80mg Take 1 [facility] n 80 mg 7-12 tablet by [facility] tablet 00:00: mouth at [place] [address] bedtime. [facility] atorvastati 2-0 Yes 80mg Take 1 [facility] 80 mg 7-12 tablet by [facility] tablet 00:00: mouth at [place] [address] bedtime. [facility] atorvastati 2-0 Yes 80mg Take 1 [facility] 80 mg 7-12 tablet by [facility] tablet 00:00: mouth at [place] [address] bedtime. [facility] atorvastati 2-0 Yes 80mg Take 1 [facility] 80 mg 7-12 tablet by [facility] tablet 00:00: mouth at [place] [address] bedtime. [facility] atorvastati 2-0 Yes 80mg Take 1 [facility] 80 mg 7-12 tablet by [facility] tablet 00:00: mouth at [place] [address] bedtime. [facility] atorvastati 2-0 Yes 80mg Take 1 [facility] 80 mg 7-12 tablet by [facility] tablet 00:00: mouth at [place] [address] bedtime. [facility] atorvastati 2-0 Yes 80mg Take 1 [facility] 80 mg 7-12 tablet by [facility] tablet 00:00: mouth at [place] [address] bedtime. [facility] atorvastati 2-0 Yes 80mg Take 1 [facility] 80 mg 7-12 tablet by [facility] tablet 00:00: mouth at [place] [address] bedtime. [facility] atorvastati 2-0 Yes 80mg Take 1 [facility] 80 mg 7-12 tablet by [facility] tablet 00:00: mouth at [place] [address] bedtime. [facility] atorvastati 2-0 Yes 80mg Take 1 [facility] 80 mg 7-12 tablet by [facility] tablet 00:00: mouth at [place] [address] bedtime. [facility] atorvastati 2-0 Yes 80mg Take 1 [facility] 80 mg 7-12 tablet by [facility] tablet 00:00: mouth at [place] [address] bedtime. [facility] atorvastati 2-0 Yes 80mg Take 1 [facility] 80 mg 7-12 tablet by [facility] tablet 00:00: mouth at [place] [address] bedtime. [facility] atorvastati 2-0 Yes 80mg Take 1 [facility] 80 mg 7-12 tablet by [facility] tablet 00:00: mouth at [place] [address] bedtime. [facility] atorvastati 2-0 Yes 80mg Take 1 [facility] 80 mg 7-12 tablet by [facility] tablet 00:00: mouth at [place] [address] bedtime. [facility] atorvastati 2-0 Yes 80mg Take 1 [facility] 80 mg 7-12 tablet by [facility] tablet 00:00: mouth at [place] [address] bedtime. [facility] atorvastati 2-0 Yes 80mg Take 1 [facility] 80 mg 7-12 tablet by [facility] tablet 00:00: mouth at [place] [address] bedtime. [facility] atorvastati 2022-0 Yes 80mg Take 1 [facility] 80 mg 7-12 tablet by [facility] tablet 00:00: mouth at [place] [address] bedtime. [facility] atorvastati 2-0 Yes 80mg Take 1 [facility] 80 mg 7-12 tablet by [facility] tablet 00:00: mouth at [place] [address] bedtime. [facility] atorvastati 2-0 Yes 80mg Take 1 [facility] 80 mg 7-12 tablet by [facility] tablet 00:00: mouth at [place] bedtime. [facility] atorvastati 2-0 Yes 80mg Take 1 [facility] 80 mg 7-12 tablet by [facility] tablet 00:00: mouth at [place] bedtime. [facility] atorvastati 2-0 Yes 80mg Take 1 [facility] 80 mg 7-12 tablet by [facility] tablet 00:00: mouth at [place] bedtime. [facility] atorvastati 2-0 Yes 80mg Take 1 [facility] 80 mg 7-12 tablet by [facility] tablet 00:00: mouth at [place] [address] bedtime. [facility] atorvastati 2-0 Yes 80mg Take 1 [facility] 80 mg 7-12 tablet by [facility] of tablet 00:00: mouth at [place] [address] bedtime. [facility] atorvastati 2-0 Yes 80mg Take 1 [facility] 80 mg 7-12 tablet by [facility] of tablet 00:00: mouth at [place] [address] bedtime. [facility] atorvastati 2-0 Yes 80mg Take 1 [facility] 80 mg 7-12 tablet by [facility] of tablet 00:00: mouth at [place] [address] bedtime. [facility] atorvastati 2-0 Yes 80mg Take 1 [facility] 80 mg 7-12 tablet by [facility] of tablet 00:00: mouth at [place] [address] bedtime. [facility] atorvastati 2-0 Yes 80mg Take 1 [facility] 80 mg 7-12 tablet by [facility] of tablet 00:00: mouth at [place] [address] bedtime. [facility] atorvastati 2-0 Yes 80mg Take 1 [facility] 80 mg 7-12 tablet by [facility] of tablet 00:00: mouth at [place] [address] bedtime. [facility] atorvastati 2-0 Yes 80mg Take 1 [facility] 80 mg 7-12 tablet by [facility] of tablet 00:00: mouth at [place] [address] bedtime. [facility] atorvastati 2-0 Yes 80mg Take 1 [facility] 80 mg 7-12 tablet by [facility] tablet 00:00: mouth at [place] [address] bedtime. [facility] atorvastati 2-0 Yes 80mg Take 1 [facility] 80 mg 7-12 tablet by [facility] of tablet 00:00: mouth at [place] [address] bedtime. [facility] atorvastati 2021-0 Yes 80mg Take 1 [facility] 80 mg 7-12 tablet by [facility] tablet 00:00: mouth at [place] [address] bedtime. [facility] atorvastati 2021-0 Yes 80mg Take 1 [facility] 80 mg 7-12 tablet by [facility] tablet 00:00: mouth at [place] [address] bedtime. [facility] atorvastati 2021-0 Yes 80mg Take 1 [facility] 80 mg 7-12 tablet by [facility] tablet 00:00: mouth at [place] [address] bedtime. [facility] atorvastati 2021-0 Yes 80mg Take 1 [facility] 80 mg 7-12 tablet by [facility] of tablet 00:00: mouth at [place] [address] bedtime. [facility] atorvastati 2021-0 Yes 80mg Take 1 [facility] 80 mg 7-12 tablet by [facility] tablet 00:00: mouth at [place] [address] bedtime. [facility] atorvastati 2021-0 2023- No 80mg Take 1 [facility] 80 mg 7-12 07-12 tablet by [facility] tablet 00:00: 00:00 mouth at [place] 00 :00 bedtime. [facility] atorvastati 2021-0 3- No 80mg Take 1 [facility] vers n 80 mg 7-12 07-12 tablet by [facility] tablet 00:00: 00:00 mouth at [place] 00 :00 bedtime. [facility] ezetimibe 2-0 Yes 10mg Take 1 [facility] (ZETIA) 10 5-20 tablet by [facility] mg tablet 00:00: mouth [place] daily. [facility] ezetimibe 2022-0 Yes 10mg Take 1 [facility] (ZETIA) 10 5-20 tablet by [facility] mg tablet 00:00: mouth [place] 00 daily. [facility] ezetimibe 2-0 Yes 10mg Take 1 [facility] (ZETIA) 10 5-20 tablet by [facility] mg tablet 00:00: mouth [place] 00 daily. [facility] ezetimibe 2-0 Yes [...] :00 daily. [facility] furosemide 0 Yes [id number] 40mg Take 2 [facility] 20 mg 2-16 02 tablets by [facility] tablet 00:00: mouth [place] 00 daily. [facility] furosemide 0 Yes [id number] 40mg Take 2 [facility] 20 mg 2-16 02 tablets by [facility] tablet 00:00: mouth [place] 00 daily. [facility] furosemide 2021-0 Yes [id number] 40mg Take 2 [facility] 20 mg 2-16 02 tablets by [facility] tablet 00:00: mouth [place] 00 daily. [facility] furosemide 2021-0 Yes [id number] 40mg Take 2 [facility] 20 mg 2-16 02 tablets by [facility] tablet 00:00: mouth [place] 00 daily. [facility] furosemide 2021-0 Yes [id number] 40mg Take 2 [facility] 20 mg 2-16 02 tablets by [facility] tablet 00:00: mouth [place] 00 daily. [facility] furosemide 2021-0 Yes [id number] 40mg Take 2 [facility] 20 mg 2-16 02 tablets by [facility] tablet 00:00: mouth [place] 00 daily. [facility] furosemide 2021-0 Yes [id number] 40mg Take 2 [facility] 20 mg 2-16 02 tablets by [facility] tablet 00:00: mouth [place] 00 daily. [facility] furosemide 2021-0 Yes [id number] 40mg Take 2 [facility] 20 mg 2-16 02 tablets by [facility] tablet 00:00: mouth [place] 00 daily. [facility] furosemide 2021-0 Yes [id number] 40mg Take 2 [facility] 20 mg 2-16 02 tablets by [facility] tablet 00:00: mouth [place] 00 daily. [facility] furosemide 2021-0 Yes [id number] 40mg Take 2 [facility] 20 mg 2-16 02 tablets by [facility] tablet 00:00: mouth [place] 00 daily. [facility] furosemide 2021-0 Yes [id number] 40mg Take 2 [facility] 20 mg 2-16 02 tablets by [facility] tablet 00:00: mouth [place] 00 daily. [facility] furosemide 2021-0 Yes [id number] 40mg Take 2 [facility] 20 mg 2-16 02 tablets by [facility] tablet 00:00: mouth [place] 00 daily. [facility] furosemide 2021-0 Yes [id number] 40mg Take 2 [facility] 20 mg 2-16 02 tablets by [facility] tablet 00:00: mouth [place] 00 daily. [facility] furosemide 2021-0 Yes [id number] 40mg Take 2 [facility] 20 mg 2-16 02 tablets by [facility] tablet 00:00: mouth [place] 00 daily. [facility] furosemide 2021-0 Yes [id number] 40mg Take 2 [facility] 20 mg 2-16 02 tablets by [facility] tablet 00:00: mouth [place] 00 daily. [facility] furosemide 2021-0 Yes [id number] 40mg Take 2 [facility] 20 mg 2-16 02 tablets by [facility] tablet 00:00: mouth [place] 00 daily. [facility] furosemide 2021-0 Yes [id number] 40mg Take 2 [facility] 20 mg 2-16 02 tablets by [facility] tablet 00:00: mouth [place] 00 daily. [facility] furosemide 2021-0 Yes [id number] 40mg Take 2 [facility] 20 mg 2-16 02 tablets by [facility] tablet 00:00: mouth [place] 00 daily. [facility] furosemide 2021-0 Yes [id number] 40mg Take 2 [facility] 20 mg 2-16 02 tablets by [facility] tablet 00:00: mouth [place] 00 daily. [facility] furosemide 2021-0 Yes [id number] 40mg Take 2 [facility] 20 mg 2-16 02 tablets by [facility] tablet 00:00: mouth [place] 00 daily. [facility] furosemide 2021-0 Yes [id number] 40mg Take 2 [facility] 20 mg 2-16 02 tablets by [facility] tablet 00:00: mouth [place] 00 daily. [facility] furosemide 2021-0 Yes [id number] 40mg Take 2 [facility] 20 mg 2-16 02 tablets by [facility] tablet 00:00: mouth [place] 00 daily. [facility] furosemide 2021-0 Yes [id number] 40mg Take 2 [facility] 20 mg 2-16 02 tablets by [facility] tablet 00:00: mouth [place] 00 daily. [facility] furosemide 2021-0 Yes [id number] 40mg Take 2 [facility] 20 mg 2-16 02 tablets by [facility] tablet 00:00: mouth [place] 00 daily. [facility] furosemide 2021-0 Yes [id number] 40mg Take 2 [facility] 20 mg 2-16 02 tablets by [facility] tablet 00:00: mouth [place] 00 daily. [facility] furosemide 2021-0 Yes [id number] 40mg Take 2 [facility] 20 mg 2-16 02 tablets by [facility] tablet 00:00: mouth [place] 00 daily. [facility] furosemide 2021-0 Yes [id number] 40mg Take 2 [facility] 20 mg 2-16 02 tablets by [facility] tablet 00:00: mouth [place] 00 daily. [facility] furosemide 2021-0 Yes [id number] 40mg Take 2 [facility] 20 mg 2-16 02 tablets by [facility] tablet 00:00: mouth [place] 00 daily. [facility] furosemide 2021-0 Yes [id number] 40mg Take 2 [facility] 20 mg 2-16 02 tablets by [facility] tablet 00:00: mouth [place] 00 daily. [facility] furosemide 2021-0 Yes [id number] 40mg Take 2 [facility] 20 mg 2-16 02 tablets by [facility] tablet 00:00: mouth [place] 00 daily. [facility] furosemide 2021-0 Yes [id number] 40mg Take 2 [facility] 20 mg 2-16 02 tablets by [facility] tablet 00:00: mouth [place] 00 daily. [facility] furosemide 2021-0 Yes [id number] 40mg Take 2 [facility] 20 mg 2-16 02 tablets by [facility] tablet 00:00: mouth [place] 00 daily. [facility] furosemide 2021-0 Yes [id number] 40mg Take 2 [facility] 20 mg 2-16 02 tablets by [facility] tablet 00:00: mouth [place] 00 daily. [facility] furosemide 2021-0 Yes [id number] 40mg Take 2 [facility] 20 mg 2-16 02 tablets by [facility] tablet 00:00: mouth [place] 00 daily. [facility] furosemide 2021-0 Yes [id number] 40mg Take 2 [facility] 20 mg 2-16 02 tablets by [facility] tablet 00:00: mouth [place] 00 daily. [facility] furosemide 0 Yes [id number] 40mg Take 2 [facility] 20 mg 2-16 02 tablets by [facility] tablet 00:00: mouth [place] 00 daily. [facility] furosemide 0 Yes [id number] 40mg Take 2 [facility] 20 mg 2-16 02 tablets by [facility] tablet 00:00: mouth [place] 00 daily. [facility] furosemide 0 Yes [id number] 40mg Take 2 [facility] 20 mg 2-16 02 tablets by [facility] tablet 00:00: mouth [place] 00 daily. [facility] furosemide Yes [id number] 40mg Take 2 [facility] 20 mg 2-16 02 tablets by [facility] tablet 00:00: mouth [place] 00 daily. [facility] furosemide Yes [id number] 40mg Take 2 [facility] 20 mg 2-16 02 tablets by [facility] tablet 00:00: mouth [place] 00 daily. [facility] furosemide Yes [id number] 40mg Take 2 [facility] 20 mg 2-16 02 tablets by [facility] tablet 00:00: mouth [place] 00 daily. [facility] furosemide 0 Yes [id number] 40mg Take 2 [facility] 20 mg 2-16 02 tablets by [facility] tablet 00:00: mouth [place] 00 daily. [facility] furosemide 2022- No [id number] 40mg Take 2 [facility] 20 mg 2-16 02-27 02 tablets by [facility] tablet 00:00: 00:00 mouth [place] 00 :00 daily. [facility] furosemide 2022- No [id number] 40mg Take 2 [facility] 20 mg 2-16 02-27 02 tablets by [facility] tablet 00:00: 00:00 mouth [place] 00 :00 daily. [facility] furosemide 2021-0 2022- No [id number] 40mg Take 2 [facility] 20 mg 2-16 02-27 02 tablets by [facility] tablet 00:00: 00:00 mouth [place] 00 :00 daily. [facility] furosemide 2021-0 2022- No [id number] 40mg Take 2 [facility] 20 mg 2-16 02-27 02 tablets by [facility] tablet 00:00: 00:00 mouth [place] 00 :00 daily. [facility] furosemide 3- No [id number] 40mg Take 2 [facility] 20 mg 2-16 06-11 02 tablets by [facility] tablet 00:00: 00:00 mouth [place] 00 :00 daily. [facility] metoprolol 2020-04 Yes [id number] 25mg Take 1 [facility] tartrate 25 2-15 tablet by [facility] mg tablet 00:00: mouth (two) [facility] times [facility] daily. metoprolol 2020-04 Yes [id number] 25mg Take 1 [facility] tartrate 25 2-15 tablet by [facility] mg tablet 00:00: mouth (two) [facility] times [facility] daily. metoprolol 2020-04 Yes [id number] 25mg Take 1 [facility] tartrate 25 2-15 tablet by [facility] mg tablet 00:00: mouth (two) [facility] times [facility] daily. metoprolol 2020-04 Yes [id number] 25mg Take 1 [facility] tartrate 25 2-15 tablet by [facility] mg tablet 00:00: mouth [place] (two) Medical times [facility] daily. metoprolol 2020-04 Yes [id number] 25mg Take 1 [facility] tartrate 25 2-15 tablet by [facility] mg tablet 00:00: mouth (two) [facility] times [facility] daily. metoprolol 2020-04 Yes [id number] 25mg Take 1 [facility] tartrate 25 2-15 tablet by [facility] mg tablet 00:00: mouth (two) [facility] times [facility] daily. metoprolol 2020-04 Yes [id number] 25mg Take 1 [facility] tartrate 25 2-15 tablet by [facility] mg tablet 00:00: mouth [place] (two) Medical times [facility] daily. metoprolol 2020-04 Yes [id number] 25mg Take 1 [facility] tartrate 25 2-15 tablet by [facility] mg tablet 00:00: mouth (two) [facility] times [facility] daily. metoprolol 2020-04 Yes [id number] 25mg Take 1 [facility] tartrate 25 2-15 tablet by [facility] mg tablet 00:00: mouth [place] (two) Medical times [facility] daily. metoprolol 2020-04 Yes [id number] 25mg Take 1 [facility] tartrate 25 2-15 tablet by [facility] mg tablet 00:00: mouth (two) [facility] times [facility] daily. metoprolol 2020-04 Yes [id number] 25mg Take 1 [facility] tartrate 25 2-15 tablet by [facility] mg tablet 00:00: mouth (two) Medical times [facility] daily. metoprolol 2020-04 Yes [id number] 25mg Take 1 [facility] tartrate 25 2-15 tablet by [facility] mg tablet 00:00: mouth (two) Medical times [facility] daily. metoprolol 2020-04 Yes [id number] 25mg Take 1 [facility] tartrate 25 2-15 tablet by [facility] mg tablet 00:00: mouth (two) [facility] times [facility] daily. metoprolol 2020-04 Yes [id number] 25mg Take 1 [facility] tartrate 25 2-15 tablet by [facility] mg tablet 00:00: mouth (two) [facility] times [facility] daily. metoprolol 2020-04 Yes [id number] 25mg Take 1 [facility] tartrate 25 2-15 tablet by [facility] mg tablet 00:00: mouth (two) Medical times [facility] daily. metoprolol 2020-04 Yes [id number] 25mg Take 1 [facility] tartrate 25 2-15 tablet by [facility] mg tablet 00:00: mouth (two) [facility] times [facility] daily. metoprolol 2020-04 Yes [id number] 25mg Take 1 [facility] tartrate 25 2-15 tablet by [facility] mg tablet 00:00: mouth (two) [facility] times [facility] daily. metoprolol 2020-04 Yes [id number] 25mg Take 1 [facility] tartrate 25 2-15 tablet by [facility] mg tablet 00:00: mouth (two) [facility] times [facility] daily. metoprolol 2020-04 Yes [id number] 25mg Take 1 [facility] tartrate 25 2-15 tablet by [facility] mg tablet 00:00: mouth (two) [facility] times [facility] daily. metoprolol 2020-04 Yes [id number] 25mg Take 1 [facility] tartrate 25 2-15 tablet by [facility] mg tablet 00:00: mouth (two) [facility] times [facility] daily. metoprolol 2020-04 Yes [id number] 25mg Take 1 [facility] tartrate 25 2-15 tablet by [facility] mg tablet 00:00: mouth [place] (two) Medical times [facility] daily. metoprolol 2020-04 Yes [id number] 25mg Take 1 [facility] tartrate 25 2-15 tablet by [facility] mg tablet 00:00: mouth [place] (two) Medical times [facility] daily. metoprolol 2020-04 Yes [id number] 25mg Take 1 [facility] tartrate 25 2-15 tablet by [facility] mg tablet 00:00: mouth [place] (two) Medical times [facility] daily. metoprolol 2020-04 Yes [id number] 25mg Take 1 [facility] tartrate 25 2-15 tablet by [facility] mg tablet 00:00: mouth [address] [place] [address] (two) Medical times Branch daily. metoprolol 2020-04 Yes [id number] 25mg Take 1 [facility] tartrate 25 2-15 tablet by [facility] mg tablet 00:00: mouth [place] (two) Medical times [facility] daily. metoprolol 2020-04 Yes [id number] 25mg Take 1 [facility] tartrate 25 2-15 tablet by [facility] mg tablet 00:00: mouth [place] (two) Medical times [facility] daily. metoprolol 2020-04 Yes [id number] 25mg Take 1 [facility] tartrate 25 2-15 tablet by [facility] mg tablet 00:00: mouth [place] (two) Medical times [facility] daily. metoprolol 2020-04 Yes [id number] 25mg Take 1 [facility] tartrate 25 2-15 tablet by [facility] of mg tablet 00:00: mouth [place] (two) Medical times [facility] daily. metoprolol 2020-04 Yes [id number] 25mg Take 1 [facility] tartrate 25 2-15 tablet by [facility] mg tablet 00:00: mouth [address] [place] [address] (two) Medical times [facility] daily. metoprolol 2020-04 No [id number] 25mg Take 1 [facility] tartrate 25 2-15 12-19 tablet by [facility] mg tablet 00:00: 00:00 mouth [place] 00 :[place] (two) Medical times [facility] daily. polyethylen 2020-04 Yes [id number] 17g Take 1 [facility] e glycol 0-29 Packet by [facility] of 3350 17 00:00: mouth [place] gram powder 00 daily. [facility] polyethylen 2020-04 Yes [id number] 17g Take 1 [facility] e glycol 0-29 Packet by [facility] of 3350 17 00:00: mouth [place] gram powder 00 daily. [facility] polyethylen 2020-04 Yes [id number] 17g Take 1 [facility] e glycol 0-29 Packet by [facility] of 3350 17 00:00: mouth [place] gram powder 00 daily. [facility] polyethylen 2020-04 Yes [id number] 17g Take 1 [facility] e glycol 0-29 Packet by [facility] of 3350 17 00:00: mouth [place] gram powder 00 daily. [facility] polyethylen 2020-04 Yes [id number] 17g Take 1 [facility] e glycol 0-29 Packet by [facility] of 3350 17 00:00: mouth [place] gram powder 00 daily. [facility] polyethylen 2020-04 Yes [id number] 17g Take 1 [facility] e glycol 0-29 Packet by [facility] of 3350 17 00:00: mouth [place] gram powder 00 daily. [facility] polyethylen 2020-04 Yes [id number] 17g Take 1 [facility] e glycol 0-29 Packet by [facility] of 3350 17 00:00: mouth [place] gram powder 00 daily. [facility] polyethylen 2020-04 Yes [id number] 17g Take 1 [facility] e glycol 0-29 Packet by [facility] of 3350 17 00:00: mouth [place] gram powder 00 daily. [facility] polyethylen 2020-04 Yes [id number] 17g Take 1 [facility] e glycol 0-29 Packet by [facility] of 3350 17 00:00: mouth [place] gram powder 00 daily. [facility] polyethylen 2020-04 Yes [id number] 17g Take 1 [facility] e glycol 0-29 Packet by [facility] of 3350 17 00:00: mouth [place] gram powder 00 daily. [facility] polyethylen 2020-04 Yes [id number] 17g Take 1 [facility] e glycol 0-29 Packet by [facility] of 3350 17 00:00: mouth [place] gram powder 00 daily. [facility] polyethylen 2020-04 Yes [id number] 17g Take 1 [facility] e glycol 0-29 Packet by [facility] of 3350 17 00:00: mouth [place] gram powder 00 daily. [facility] polyethylen 2020-04 Yes [id number] 17g Take 1 [facility] e glycol 0-29 Packet by [facility] of 3350 17 00:00: mouth [place] gram powder 00 daily. [facility] polyethylen 2020-04 Yes [id number] 17g Take 1 [facility] e glycol 0-29 Packet by [facility] of 3350 17 00:00: mouth [place] gram powder 00 daily. [facility] polyethylen 2020-04 Yes [id number] 17g Take 1 [facility] e glycol 0-29 Packet by [facility] of 3350 17 00:00: mouth [place] gram powder 00 daily. [facility] polyethylen 2020-04 Yes [id number] 17g Take 1 [facility] e glycol 0-29 Packet by [facility] of 3350 17 00:00: mouth [place] gram powder 00 daily. [facility] polyethylen 2020-04 Yes [id number] 17g Take 1 [facility] e glycol 0-29 Packet by [facility] of 3350 17 00:00: mouth [place] gram powder 00 daily. [facility] polyethylen 2020-04 Yes [id number] 17g Take 1 [facility] e glycol 0-29 Packet by [facility] of 3350 17 00:00: mouth [place] gram powder 00 daily. [facility] polyethylen 2020-04 Yes [id number] 17g Take 1 [facility] e glycol 0-29 Packet by [facility] of 3350 17 00:00: mouth [place] gram powder 00 daily. [facility] polyethylen 2020-04 Yes [id number] 17g Take 1 [facility] e glycol 0-29 Packet by [facility] of 3350 17 00:00: mouth [place] gram powder 00 daily. [facility] polyethylen 2020-04 Yes [id number] 17g Take 1 [facility] e glycol 0-29 Packet by [facility] of 3350 17 00:00: mouth [place] gram powder 00 daily. [facility] polyethylen 2020-04 Yes [id number] 17g Take 1 [facility] e glycol 0-29 Packet by [facility] of 3350 17 00:00: mouth [place] gram powder 00 daily. [facility] polyethylen 2020-04 Yes [id number] 17g Take 1 [facility] e glycol 0-29 Packet by [facility] of 3350 17 00:00: mouth [place] gram powder 00 daily. [facility] polyethylen 2020-04 Yes [id number] 17g Take 1 [facility] e glycol 0-29 Packet by [facility] of 3350 17 00:00: mouth [place] gram powder 00 daily. [facility] polyethylen 2020-04 Yes [id number] 17g Take 1 [facility] e glycol 0-29 Packet by [facility] of 3350 17 00:00: mouth [place] gram powder 00 daily. [facility] polyethylen 2020-04 Yes [id number] 17g Take 1 [facility] e glycol 0-29 Packet by [facility] of 3350 17 00:00: mouth [place] gram powder 00 daily. [facility] polyethylen 2020-04 Yes [id number] 17g Take 1 [facility] e glycol 0-29 Packet by [facility] of 3350 17 00:00: mouth [place] gram powder 00 daily. [facility] polyethylen 2020-04 Yes [id number] 17g Take 1 [facility] e glycol 0-29 Packet by [facility] of 3350 17 00:00: mouth [place] gram powder 00 daily. [facility] polyethylen 2020-04 Yes [id number] 17g Take 1 [facility] e glycol 0-29 Packet by [facility] of 3350 17 00:00: mouth [place] gram powder 00 daily. [facility] polyethylen 2020-04 Yes [id number] 17g Take 1 [facility] glycol 0-29 Packet by [facility] of 3350 17 00:00: mouth [place] gram powder 00 daily. [facility] polyethylen 2020-04 Yes [id number] 17g Take 1 [facility] e glycol 0-29 Packet by [facility] of 3350 17 00:00: mouth [place] gram powder 00 daily. [facility] polyethylen 2020-04 Yes [id number] 17g Take 1 [facility] e glycol 0-29 Packet by [facility] of 3350 17 00:00: mouth [place] gram powder 00 daily. [facility] polyethylen 2020-04 Yes [id number] 17g Take 1 [facility] glycol 0-29 Packet by [facility] of 3350 17 00:00: mouth [place] gram powder 00 daily. [facility] polyethylen 2020-04 Yes [id number] 17g Take 1 [facility] e glycol 0-29 Packet by [facility] of 3350 17 00:00: mouth [place] gram powder 00 daily. [facility] polyethylen 2020-04 Yes [id number] 17g Take 1 [facility] e glycol 0-29 Packet by [facility] of 3350 17 00:00: mouth [place] gram powder 00 daily. [facility] polyethylen 2020-04 Yes [id number] 17g Take 1 [facility] e glycol 0-29 Packet by [facility] of 3350 17 00:00: mouth [place] gram powder 00 daily. [facility] polyethylen 2020-04 Yes [id number] 17g Take 1 [facility] glycol 0-29 Packet by [facility] of 3350 17 00:00: mouth [place] gram powder 00 daily. [facility] polyethylen 2020-04 Yes [id number] 17g Take 1 [facility] glycol 0-29 Packet by [facility] of 3350 17 00:00: mouth [place] gram powder 00 daily. [facility] polyethylen 2020-04 Yes [id number] 17g Take 1 [facility] glycol 0-29 Packet by [facility] of 3350 17 00:00: mouth [place] gram powder 00 daily. [facility] polyethylen 2020-04 Yes [id number] 17g Take 1 [facility] glycol 0-29 Packet by [facility] of 3350 17 00:00: mouth [place] gram powder 00 daily. [facility] polyethylen 2020-04 Yes [id number] 17g Take 1 [facility] glycol 0-29 Packet by [facility] of 3350 17 00:00: mouth [place] gram powder 00 daily. [facility] polyethylen 2020-04- No [id number] 17g Take 1 [facility] e glycol 0-29 02-22 Packet by it[facility] o f 3350 17 00:00: 00:00 mouth [place] gram powder 00 :00 daily. [facility] polyethylen 2020-04- No [id number] 17g Take 1 [facility] e glycol 0-29 02-22 Packet by it[facility] o f 3350 17 00:00: 00:00 mouth [place] gram powder 00 :00 daily. [facility] polyethylen 2020-04- No [id number] 17g Take 1 [facility] glycol 0-29 02-22 Packet by [facility] o f 3350 17 00:00: 00:00 mouth [place] gram powder 00 :00 daily. [facility] docusate 2020-04 Yes [id number] 100mg Take 1 [facility] 100 mg 0-28 capsule by [facility] capsule 00:00: mouth (two) [facility] times [facility] daily. docusate 2020-04 Yes [id number] 100mg Take 1 [facility] 100 mg 0-28 capsule by [facility] capsule 00:00: mouth (two) [facility] times [facility] daily. docusate 2020-04 Yes [id number] 100mg Take 1 [facility] 100 mg 0-28 capsule by [facility] capsule 00:00: mouth (two) [facility] times [facility] daily. docusate 2020-04 Yes [id number] 100mg Take 1 [facility] 100 mg 0-28 capsule by [facility] capsule 00:00: mouth (two) [facility] times [facility] daily. docusate 2020-04 Yes [id number] 100mg Take 1 [facility] 100 mg 0-28 capsule by [facility] capsule 00:00: mouth (two) [facility] times [facility] daily. docusate 2020-04 Yes [id number] 100mg Take 1 [facility] 100 mg 0-28 capsule by [facility] capsule 00:00: mouth (two) [facility] times [facility] daily. docusate 2020-04 Yes [id number] 100mg Take 1 [facility] 100 mg 0-28 capsule by [facility] capsule 00:00: mouth (two) [facility] times [facility] daily. docusate 2020-04 Yes [id number] 100mg Take 1 [facility] 100 mg 0-28 capsule by [facility] capsule 00:00: mouth (two) [facility] times [facility] daily. docusate 2020-04 Yes [id number] 100mg Take 1 [facility] 100 mg 0-28 capsule by [facility] capsule 00:00: mouth (two) [facility] times [facility] daily. docusate 2020-04 Yes [id number] 100mg Take 1 [facility] 100 mg 0-28 capsule by [facility] capsule 00:00: mouth (two) [facility] times [facility] daily. docusate 2020-04 Yes [id number] 100mg Take 1 [facility] 100 mg 0-28 capsule by [facility] capsule 00:00: mouth (two) [facility] times [facility] daily. docusate 2020-04 Yes [id number] 100mg Take 1 [facility] 100 mg 0-28 capsule by [facility] capsule 00:00: mouth (two) [facility] times [facility] daily. docusate 2020-04 Yes [id number] 100mg Take 1 [facility] 100 mg 0-28 capsule by [facility] capsule 00:00: mouth (two) [facility] times [facility] daily. docusate 2020-04 Yes [id number] 100mg Take 1 [facility] 100 mg 0-28 capsule by [facility] capsule 00:00: mouth (two) [facility] times [facility] daily. docusate 2020-04 Yes [id number] 100mg Take 1 [facility] 100 mg 0-28 capsule by [facility] capsule 00:00: mouth (two) [facility] times [facility] daily. docusate 2020-04 Yes [id number] 100mg Take 1 [facility] 100 mg 0-28 capsule by [facility] of capsule 00:00: mouth (two) [facility] times [facility] daily. docusate 2020-04 Yes [id number] 100mg Take 1 [facility] 100 mg 0-28 capsule by [facility] capsule 00:00: mouth (two) [facility] times [facility] daily. docusate 2020-04 Yes [id number] 100mg Take 1 [facility] 100 mg 0-28 capsule by [facility] capsule 00:00: mouth (two) [facility] times [facility] daily. docusate 2020-04 Yes [id number] 100mg Take 1 [facility] 100 mg 0-28 capsule by [facility] capsule 00:00: mouth (two) [facility] times [facility] daily. docusate 2020-04 Yes [id number] 100mg Take 1 [facility] 100 mg 0-28 capsule by [facility] of capsule 00:00: mouth (two) [facility] times [facility] daily. docusate 2020-04 Yes [id number] 100mg Take 1 [facility] 100 mg 0-28 capsule by [facility] capsule 00:00: mouth 2 (two) [facility] times [facility] daily. docusate 2020-04 Yes [id number] 100mg Take 1 [facility] 100 mg 0-28 capsule by [facility] capsule 00:00: mouth (two) [facility] times [facility] daily. docusate 2020-04 Yes [id number] 100mg Take 1 [facility] 100 mg 0-28 capsule by [facility] of capsule 00:00: mouth (two) [facility] times [facility] daily. docusate 2020-04 Yes [id number] 100mg Take 1 [facility] 100 mg 0-28 capsule by [facility] of capsule 00:00: mouth (two) [facility] times [facility] daily. docusate 2020-04 Yes [id number] 100mg Take 1 [facility] 100 mg 0-28 capsule by [facility] capsule 00:00: mouth (two) [facility] times [facility] daily. docusate 2020-04 Yes [id number] 100mg Take 1 [facility] 100 mg 0-28 capsule by [facility] capsule 00:00: mouth (two) [facility] times [facility] daily. docusate 2020-04 Yes [id number] 100mg Take 1 [facility] 100 mg 0-28 capsule by [facility] capsule 00:00: mouth (two) [facility] times [facility] daily. docusate 2020-04 Yes [id number] 100mg Take 1 [facility] 100 mg 0-28 capsule by [facility] of capsule 00:00: mouth (two) [facility] times [facility] daily. docusate 2020-04 Yes [id number] 100mg Take 1 [facility] 100 mg 0-28 capsule by [facility] capsule 00:00: mouth (two) [facility] times [facility] daily. docusate 2020-04 Yes [id number] 100mg Take 1 [facility] 100 mg 0-28 capsule by [facility] of capsule 00:00: mouth (two) [facility] times [facility] daily. docusate 2020-04 Yes [id number] 100mg Take 1 [facility] 100 mg 0-28 capsule by [facility] of capsule 00:00: mouth (two) [facility] times [facility] daily. docusate 2020-04 Yes [id number] 100mg Take 1 [facility] 100 mg 0-28 capsule by [facility] of capsule 00:00: mouth (two) [facility] times [facility] daily. docusate 2020-04 Yes [id number] 100mg Take 1 [facility] 100 mg 0-28 capsule by [facility] of capsule 00:00: mouth (two) [facility] times [facility] daily. docusate 2020-04 Yes [id number] 100mg Take 1 [facility] 100 mg 0-28 capsule by [facility] of capsule 00:00: mouth 2 [place] 00 (two) [facility] times [facility] daily. docusate 2020-04 Yes [id number] 100mg Take 1 [facility] 100 mg 0-28 capsule by [facility] of capsule 00:00: mouth 2 [place] 00 (two) [facility] times [facility] daily. docusate 2020-04 Yes [id number] 100mg Take 1 [facility] 100 mg 0-28 capsule by [facility] of capsule 00:00: mouth 2 [place] 00 (two) [facility] times [facility] daily. docusate 2020-04 Yes [id number] 100mg Take 1 [facility] 100 mg 0-28 capsule by [facility] of capsule 00:00: mouth [address] [place] [address] (two) Medical times [facility] daily. docusate 2020-04 Yes [id number] 100mg Take 1 [facility] 100 mg 0-28 capsule by [facility] of capsule 00:00: mouth [address] [place] [address] 00 (two) Medical times [facility] daily. docusate 2020-04 Yes [id number] 100mg Take 1 [facility] 100 mg 0-28 capsule by [facility] of capsule 00:00: mouth [address] [place] [address] 00 (two) Medical times [facility] daily. docusate 2020-04 Yes [id number] 100mg Take 1 [facility] 100 mg 0-28 capsule by [facility] of capsule 00:00: mouth [address] [place] [address] 00 (two) Medical times [facility] daily. docusate 2020-04 Yes [id number] 100mg Take 1 [facility] 100 mg 0-28 capsule by [facility] of capsule 00:00: mouth [address] [place] [address] 00 (two) Medical times [facility] daily. docusate 2020-04- No [id number] 100mg Take 1 [facility] 100 mg 0-28 02-22 capsule by [facility] of capsule 00:00: 00:00 mouth 2 [place] 00 :00 (two) Medical times [facility] daily. docusate 2020-04- No [id number] 100mg Take 1 [facility] 100 mg 0-28 02-22 capsule by [facility] of capsule 00:00: 00:00 mouth 2 [place] 00 :00 (two) [facility] times [facility] daily. docusate 2020-04- No [id number] 100mg Take 1 [facility] 100 mg 0-28 06-06 capsule by [facility] of capsule 00:00: 00:00 [...] 4-21 mouth ity of capsule 00:00: daily. [place] [facility] lidocaine 5 2017-0 Yes Un[facility] % (700 4-21 ity of mg/patch) 00:00: [place] patch 00 [facility] gabapentin 2017-0 Yes Take by [facility] 300 mg 4-21 mouth ity of capsule 00:00: daily. [place] [facility] lidocaine 5 2017-0 Yes [facility] % (700 4-21 ity of mg/patch) 00:00: [place] patch 00 [facility] gabapentin 2017-0 Yes Take by [facility] 300 mg 4-21 mouth ity of capsule 00:00: daily. [place] [facility] lidocaine 5 2017-0 Yes [facility] % (700 4-21 ity of mg/patch) 00:00: [place] patch [facility] gabapentin 2017-0 Yes Take by [facility] 300 mg 4-21 mouth ity of capsule 00:00: daily. [place] [facility] lidocaine 5 2017-0 Yes Univer [facility] % (700 4-21 ity of mg/patch) 00:00: [place] patch [facility] gabapentin 2017-0 Yes Take by [facility] 300 mg 4-21 mouth ity of capsule 00:00: daily. [place] [facility] lidocaine 5 2017-0 Yes Univer [facility] % (700 4-21 ity of mg/patch) 00:00: [place] patch [facility] gabapentin 2017-0 Yes Take by [facility] 300 mg 4-21 mouth ity of capsule 00:00: daily. [place] [facility] lidocaine 5 2017-0 Yes Un[facility] % (700 4-21 ity of mg/patch) 00:00: [place] patch [facility] gabapentin 2017-0 Yes Take by [facility] 300 mg 4-21 mouth ity of capsule 00:00: daily. [place] [facility] lidocaine 5 2017-0 Yes Univer s % (700 4-21 ity of mg/patch) 00:00: [place] patch [facility] gabapentin 2017-0 Yes Take by [facility] 300 mg 4-21 mouth ity of capsule 00:00: daily. [place] [facility] lidocaine 5 2017-0 Yes Univer s % (700 4-21 ity of mg/patch) 00:00: [place] patch [facility] gabapentin 2017-0 Yes Take by [facility] 300 mg 4-21 mouth ity of capsule 00:00: daily. [place] [facility] lidocaine 5 2017-0 Yes Univer [...] 4-21 mouth ity of capsule 00:00: daily. [place] [facility] lidocaine 5 2017-0 Yes Univer s % (700 4-21 ity of mg/patch) 00:00: [place] patch [facility] gabapentin 2017-0 Yes Take by [facility] 300 mg 4-21 mouth ity of capsule 00:00: daily. [place] [facility] lidocaine 5 2017-0 Yes Univer s % (700 4-21 ity of mg/patch) 00:00: [place] patch [facility] gabapentin 2017-0 Yes Take by [facility] 300 mg 4-21 mouth ity of capsule 00:00: daily. [place] [facility] lidocaine 5 2017-0 Yes Univer [facility] % (700 4-21 ity of mg/patch) 00:00: [place] patch [facility] gabapentin 2017-0 Yes Take by [facility] 300 mg 4-21 mouth ity of capsule 00:00: daily. [place] [facility] lidocaine 5 2017-0 Yes Un[facility] % (700 4-21 ity of mg/patch) 00:00: [place] patch [facility] gabapentin 2017-0 Yes Take by [facility] 300 mg 4-21 mouth ity of capsule 00:00: daily. [place] [facility] lidocaine 5 2017-0 Yes Univer [facility] % (700 4-21 ity of mg/patch) 00:00: [place] patch [facility] gabapentin 2017-0 Yes Take by [facility] 300 mg 4-21 mouth ity of capsule 00:00: daily. [place] [facility] lidocaine 5 2017-0 Yes Univer [...] 4-21 mouth ity of capsule 00:00: daily. [place] [facility] lidocaine 5 2017-0 Yes Un[facility] s % (700 4-21 ity of mg/patch) 00:00: [place] patch [facility] gabapentin 2017-0 Yes Take by [facility] 300 mg 4-21 mouth ity of capsule 00:00: daily. [place] [facility] lidocaine 5 2017-0 Yes Univer [facility] % (700 4-21 ity of mg/patch) 00:00: [place] patch [facility] gabapentin 2017-0 Yes Take by [facility] 300 mg 4-21 mouth ity of capsule 00:00: daily. [place] [facility] lidocaine 5 2017-0 Yes Univer [...] 4-21 mouth ity of capsule 00:00: daily. [place] [facility] lidocaine 5 2017-0 Yes Un[facility] s % (700 4-21 ity of mg/patch) 00:00: [place] patch 00 [facility] gabapentin 2017-0 Yes Take by [facility] 300 mg 4-21 mouth ity of capsule 00:00: daily. [place] [facility] lidocaine 5 2017-0 Yes Un[facility] s % (700 4-21 ity of mg/patch) 00:00: [place] patch 00 [facility] gabapentin 2017-0 Yes Take by [facility] 300 mg 4-21 mouth ity of capsule 00:00: daily. [place] [facility] lidocaine 5 2017-0 Yes Univer s % (700 4-21 ity of mg/patch) 00:00: [place] patch 00 [facility] gabapentin 2017-0 Yes Take by [facility] 300 mg 4-21 mouth ity of capsule 00:00: daily. [place] [facility] lidocaine 5 2017-0 Yes Univer s % (700 4-21 ity of mg/patch) 00:00: [place] patch [facility] gabapentin 2017-0 Yes Take by [facility] 300 mg 4-21 mouth ity of capsule 00:00: daily. [place] [facility] lidocaine 5 2017-0 Yes Univer s % (700 4-21 ity of mg/patch) 00:00: [place] patch [facility] gabapentin 2017-0 Yes Take by [facility] 300 mg 4-21 mouth ity of capsule 00:00: daily. [place] [facility] lidocaine 5 2017-0 Yes Univer s % (700 4-21 ity of mg/patch) 00:00: [place] patch [facility] gabapentin 2017-0 Yes Take by [facility] 300 mg 4-21 mouth ity of capsule 00:00: daily. [place] [facility] lidocaine 5 2017-0 Yes Univer s % (700 4-21 ity of mg/patch) 00:00: [place] patch [facility] gabapentin 2017-0 Yes Take by [facility] 300 mg 4-21 mouth ity of capsule 00:00: daily. [place] [facility] lidocaine 5 2017-0 Yes Univer s % (700 4-21 ity of mg/patch) 00:00: [place] patch [facility] gabapentin 2017-0 Yes Take by [facility] 300 mg 4-21 mouth ity of capsule 00:00: daily. [place] [facility] lidocaine 5 2017-0 Yes Univer s % (700 4-21 ity of mg/patch) 00:00: [place] patch [facility] gabapentin 2017-0 Yes Take by [facility] 300 mg 4-21 mouth ity of capsule 00:00: daily. [place] [facility] lidocaine 5 2017-0 Yes Univer [...] 4-21 mouth ity of capsule 00:00: daily. [place] [facility] lidocaine 5 2017-0 Yes Univer s % (700 4-21 ity of mg/patch) 00:00: [place] patch [facility] gabapentin 2017-0 Yes Take by [facility] 300 mg 4-21 mouth ity of capsule 00:00: daily. [place] [facility] lidocaine 5 2017-0 Yes Univer s % (700 4-21 ity of mg/patch) 00:00: [place] patch [facility] gabapentin 2017-0 Yes Take by [facility] 300 mg 4-21 mouth ity of capsule 00:00: daily. [place] [facility] lidocaine 5 2017-0 Yes Univer s % (700 4-21 ity of mg/patch) 00:00: [place] patch [facility] gabapentin 2017-0 Yes Take by [facility] 300 mg 4-21 mouth ity of capsule 00:00: daily. [place] [facility] lidocaine 5 2017-0 Yes Univer [facility] % (700 4-21 ity of mg/patch) 00:00: [place] patch [facility] gabapentin 2017-0 Yes Take by [facility] 300 mg 4-21 mouth ity of capsule 00:00: daily. [place] [facility] lidocaine 5 2017-0 Yes Univer s % (700 4-21 ity of mg/patch) 00:00: [place] patch [facility] gabapentin 2017-0 Yes Take by [facility] 300 mg 4-21 mouth ity of capsule 00:00: daily. [place] [facility] lidocaine 5 2017-0 Yes Univer [...] 4-21 mouth ity of capsule 00:00: daily. [place] [facility] lidocaine 5 2017-0 Yes Univer s % (700 4-21 ity of mg/patch) 00:00: [place] patch [facility] gabapentin 2017-0 Yes Take by [facility] 300 mg 4-21 mouth ity of capsule 00:00: daily. [place] [facility] lidocaine 5 2017-0 Yes Univer s % (700 4-21 ity of mg/patch) 00:00: [place] patch [facility] gabapentin 2017-0 Yes Take by [facility] 300 mg 4-21 mouth ity of capsule 00:00: daily. [place] [facility] lidocaine 5 2017-0 Yes Univer [...] 4-21 mouth ity of capsule 00:00: daily. [place] [facility] lidocaine 5 2017-0 Yes Univer s % (700 4-21 ity of mg/patch) 00:00: [place] patch 00 [facility] gabapentin 2017-0 Yes Take by [facility] 300 mg 4-21 mouth ity of capsule 00:00: daily. [place] [facility] lidocaine 5 2017-0 Yes Univer s % (700 4-21 ity of mg/patch) 00:00: [place] patch 00 [facility] gabapentin 2017-0 Yes Take by [facility] 300 mg 4-21 mouth ity of capsule 00:00: daily. [place] [facility] lidocaine 5 2017-0 Yes Un[facility] s % (700 4-21 ity of mg/patch) 00:00: [place] patch 00 [facility] gabapentin 2017-0 Yes Take by [facility] 300 mg 4-21 mouth ity of capsule 00:00: daily. [place] [facility] lidocaine 5 2017-0 Yes Univer s % (700 4-21 ity of mg/patch) 00:00: [place] patch [facility] gabapentin 2017-0 Yes Take by [facility] 300 mg 4-21 mouth ity of capsule 00:00: daily. [place] [facility] lidocaine 5 2017-0 Yes Univer s % (700 4-21 ity of mg/patch) 00:00: [place] patch [facility] gabapentin 2017-0 Yes Take by [facility] 300 mg 4-21 mouth ity of capsule 00:00: daily. [place] [facility] lidocaine 5 2017-0 Yes Univer s % (700 4-21 ity of mg/patch) 00:00: [place] patch [facility] gabapentin 2017-0 Yes Take by [facility] 300 mg 4-21 mouth ity of capsule 00:00: daily. [place] [facility] lidocaine 5 2017-0 Yes Univer s % (700 4-21 ity of mg/patch) 00:00: [place] patch [facility] gabapentin 2017-0 Yes Take by [facility] 300 mg 4-21 mouth ity of capsule 00:00: daily. [place] [facility] lidocaine 5 2017-0 Yes Univer s % (700 4-21 ity of mg/patch) 00:00: [place] patch [facility] gabapentin 2017-0 Yes Take by [facility] 300 mg 4-21 mouth ity of capsule 00:00: daily. [place] [facility] lidocaine 5 2017-0 Yes Univer s % (700 4-21 ity of mg/patch) 00:00: [place] patch [facility] gabapentin 2017-0 Yes Take by [facility] 300 mg 4-21 mouth ity of capsule 00:00: daily. [place] [facility] lidocaine 5 2017-0 Yes Univer [...] 4-21 mouth ity of capsule 00:00: daily. [place] [facility] lidocaine 5 2017-0 Yes Univer s % (700 4-21 ity of mg/patch) 00:00: [place] patch [facility] gabapentin 2017-0 Yes Take by [facility] 300 mg 4-21 mouth ity of capsule 00:00: daily. [place] [facility] lidocaine 5 2017-0 Yes Univer s % (700 4-21 ity of mg/patch) 00:00: [place] patch [facility] gabapentin 2017-0 Yes Take by [facility] 300 mg 4-21 mouth ity of capsule 00:00: daily. [place] [facility] lidocaine 5 2017-0 Yes Univer s % (700 4-21 ity of mg/patch) 00:00: [place] patch [facility] gabapentin 2017-0 Yes Take by [facility] 300 mg 4-21 mouth ity of capsule 00:00: daily. [place] [facility] lidocaine 5 2017-0 Yes Univer s % (700 4-21 ity of mg/patch) 00:00: [place] patch [facility] gabapentin 2017-0 Yes Take by [facility] 300 mg 4-21 mouth ity of capsule 00:00: daily. [place] [facility] lidocaine 5 2017-0 Yes Univer s % (700 4-21 ity of mg/patch) 00:00: [place] patch [facility] gabapentin 2017-0 Yes Take by [facility] 300 mg 4-21 mouth ity of capsule 00:00: daily. [place] [facility] lidocaine 5 2017-0 Yes Univer [...] 4-21 mouth ity of capsule 00:00: daily. [place] [facility] lidocaine 5 2017-0 Yes Univer s % (700 4-21 ity of mg/patch) 00:00: [place] patch [facility] gabapentin 2017-0 Yes Take by [facility] 300 mg 4-21 mouth ity of capsule 00:00: daily. [place] [facility] lidocaine 5 2017-0 Yes Univer s % (700 4-21 ity of mg/patch) 00:00: [place] patch [facility] gabapentin 2017-0 Yes Take by [facility] 300 mg 4-21 mouth ity of capsule 00:00: daily. [place] [facility] lidocaine 5 2017-0 Yes Univer [...] 4-21 mouth ity of capsule 00:00: daily. [place] [facility] lidocaine 5 2017-0 Yes Univer s % (700 4-21 ity of mg/patch) 00:00: [place] patch 00 [facility] gabapentin 2017-0 Yes Take by [facility] 300 mg 4-21 mouth ity of capsule 00:00: daily. [place] [facility] lidocaine 5 2017-0 Yes Univer s % (700 4-21 ity of mg/patch) 00:00: [place] patch 00 [facility] gabapentin 2017-0 Yes Take by [facility] 300 mg 4-21 mouth ity of capsule 00:00: daily. [place] [facility] lidocaine 5 2017-0 Yes Univer s % (700 4-21 ity of mg/patch) 00:00: [place] patch 00 [facility] gabapentin 2017-0 Yes Take by [facility] 300 mg 4-21 mouth ity of capsule 00:00: daily. [place] [facility] lidocaine 5 2017-0 Yes Univer s % (700 4-21 ity of mg/patch) 00:00: [place] patch [facility] gabapentin 2017-0 Yes Take by [facility] 300 mg 4-21 mouth ity of capsule 00:00: daily. [place] [facility] lidocaine 5 2017-0 Yes Univer s % (700 4-21 ity of mg/patch) 00:00: [place] patch [facility] gabapentin 2017-0 Yes Take by [facility] 300 mg 4-21 mouth ity of capsule 00:00: daily. [place] [facility] lidocaine 5 2017-0 Yes Univer s % (700 4-21 ity of mg/patch) 00:00: [place] patch [facility] gabapentin 2017-0 Yes Take by [facility] 300 mg 4-21 mouth ity of capsule 00:00: daily. [place] [facility] lidocaine 5 2017-0 Yes Univer s % (700 4-21 ity of mg/patch) 00:00: [place] patch [facility] gabapentin 2017-0 Yes Take by [facility] 300 mg 4-21 mouth ity of capsule 00:00: daily. [place] [facility] lidocaine 5 2017-0 Yes Univer s % (700 4-21 ity of mg/patch) 00:00: [place] patch [facility] gabapentin 2017-0 Yes Take by [facility] 300 mg 4-21 mouth ity of capsule 00:00: daily. [place] [facility] lidocaine 5 2017-0 Yes Univer s % (700 4-21 ity of mg/patch) 00:00: [place] patch [facility] gabapentin 2017-0 Yes Take by [facility] 300 mg 4-21 mouth ity of capsule 00:00: daily. [place] [facility] lidocaine 5 2017-0 Yes Univer [...] 4-21 mouth ity of capsule 00:00: daily. [place] [facility] lidocaine 5 2017-0 Yes Univer s % (700 4-21 ity of mg/patch) 00:00: [place] patch [facility] gabapentin 2017-0 Yes Take by [facility] 300 mg 4-21 mouth ity of capsule 00:00: daily. [place] [facility] lidocaine 5 2017-0 Yes Univer s % (700 4-21 ity of mg/patch) 00:00: [place] patch [facility] gabapentin 2017-0 Yes Take by [facility] 300 mg 4-21 mouth ity of capsule 00:00: daily. [place] [facility] lidocaine 5 2017-0 Yes Univer s % (700 4-21 ity of mg/patch) 00:00: [place] patch [facility] gabapentin 2017-0 Yes Take by [facility] 300 mg 4-21 mouth ity of capsule 00:00: daily. [place] [facility] lidocaine 5 2017-0 Yes Univer s % (700 4-21 ity of mg/patch) 00:00: [place] patch [facility] gabapentin 2017-0 Yes Take by [facility] 300 mg 4-21 mouth ity of capsule 00:00: daily. [place] [facility] lidocaine 5 2017-0 Yes Univer s % (700 4-21 ity of mg/patch) 00:00: [place] patch [facility] gabapentin 2017-0 Yes Take by [facility] 300 mg 4-21 mouth ity of capsule 00:00: daily. [place] [facility] lidocaine 5 2017-0 Yes Univer [...] 4-21 mouth ity of capsule 00:00: daily. [place] [facility] lidocaine 5 2017-0 Yes Univer s % (700 4-21 ity of mg/patch) 00:00: [place] patch [facility] gabapentin 2017-0 Yes Take by [facility] 300 mg 4-21 mouth ity of capsule 00:00: daily. [place] [facility] lidocaine 5 2017-0 Yes Univer s % (700 4-21 ity of mg/patch) 00:00: [place] patch [facility] gabapentin 2017-0 Yes Take by [facility] 300 mg 4-21 mouth ity of capsule 00:00: daily. [place] [facility] lidocaine 5 2017-0 Yes Univer [...] 4-21 mouth ity of capsule 00:00: daily. [place] [facility] lidocaine 5 2017-0 Yes Univer s % (700 4-21 ity of mg/patch) 00:00: [place] patch 00 [facility] gabapentin 2017-0 Yes Take by [facility] 300 mg 4-21 mouth ity of capsule 00:00: daily. [place] [facility] lidocaine 5 2017-0 Yes Univer s % (700 4-21 ity of mg/patch) 00:00: [place] patch 00 [facility] gabapentin 2017-0 Yes Take by [facility] 300 mg 4-21 mouth ity of capsule 00:00: daily. [place] [facility] lidocaine 5 2017-0 Yes Univer s % (700 4-21 ity of mg/patch) 00:00: [place] patch 00 [facility] gabapentin 2017-0 Yes Take by [facility] 300 mg 4-21 mouth ity of capsule 00:00: daily. [place] [facility] lidocaine 5 2017-0 Yes Univer s % (700 4-21 ity of mg/patch) 00:00: [place] patch [facility] gabapentin 2017-0 Yes Take by [facility] 300 mg 4-21 mouth ity of capsule 00:00: daily. [place] [facility] lidocaine 5 2017-0 Yes Univer s % (700 4-21 ity of mg/patch) 00:00: [place] patch [facility] gabapentin 2017-0 Yes Take by [facility] 300 mg 4-21 mouth ity of capsule 00:00: daily. [place] [facility] lidocaine 5 2017-0 Yes Univer s % (700 4-21 ity of mg/patch) 00:00: [place] patch [facility] gabapentin 2017-0 Yes Take by [facility] 300 mg 4-21 mouth ity of capsule 00:00: daily. [place] [facility] lidocaine 5 2017-0 Yes Univer s % (700 4-21 ity of mg/patch) 00:00: [place] patch [facility] gabapentin 2017-0 Yes Take by [facility] 300 mg 4-21 mouth ity of capsule 00:00: daily. [place] [facility] lidocaine 5 2017-0 Yes Univer s % (700 4-21 ity of mg/patch) 00:00: [place] patch [facility] gabapentin 2017-0 Yes Take by [facility] 300 mg 4-21 mouth ity of capsule 00:00: daily. [place] [facility] lidocaine 5 2017-0 Yes Univer [facility] % (700 4-21 ity of mg/patch) 00:00: [place] patch [facility] gabapentin 2017-0 Yes Take by [facility] 300 mg 4-21 mouth ity of capsule 00:00: daily. [place] [facility] lidocaine 5 2017-0 Yes Univer s % (700 4-21 ity of mg/patch) 00:00: [place] patch [facility] gabapentin 2017-0 Yes Take by [facility] 300 mg 4-21 mouth ity of capsule 00:00: daily. [place] [facility] lidocaine 5 2017-0 Yes Univer s % (700 4-21 ity of mg/patch) 00:00: [facility] 00 [facility] pantoprazol 2017-0 Yes Univer s e 40 mg EC 4-14 ity of tablet 00:00: [place] [facility] pantoprazol 2017-0 Yes Univer s e 40 mg EC 4-14 ity of tablet 00:00: [place] [facility] pantoprazol 2017-0 Yes Univer s e 40 mg EC 4-14 ity of tablet 00:00: [place] [facility] pantoprazol 2017-0 Yes Univer s e 40 mg EC 4-14 ity of tablet 00:00: [place] [facility] pantoprazol 2017-0 Yes Univer s e 40 mg EC 4-14 ity of tablet 00:00: [place] [facility] pantoprazol 2017-0 Yes Univer s e 40 mg EC 4-14 ity of tablet 00:00: [place] [facility] pantoprazol 2017-0 Yes Univer s e 40 mg EC 4-14 ity of tablet 00:00: [place] [facility] pantoprazol 2017-0 Yes Univer s e 40 mg EC 4-14 ity of tablet 00:00: [place] [facility] pantoprazol 2017-0 Yes Univer s e 40 mg EC 4-14 ity of tablet 00:00: [place] [facility] pantoprazol 2017-0 Yes Univer s e 40 mg EC 4-14 ity of tablet 00:00: [place] [facility] pantoprazol 2017-0 Yes Univer s e 40 mg EC 4-14 ity of tablet 00:00: [place] [facility] pantoprazol 2017-0 Yes Univer s e 40 mg EC 4-14 ity of tablet 00:00: [place] [facility] pantoprazol 2017-0 Yes Univer s e 40 mg EC 4-14 ity of tablet 00:00: [place] [facility] pantoprazol 2017-0 Yes Univer s e 40 mg EC 4-14 ity of tablet 00:00: [place] [facility] pantoprazol 2017-0 Yes Univer s e 40 mg EC 4-14 ity of tablet 00:00: [place] [facility] pantoprazol 2017-0 Yes Univer s e 40 mg EC 4-14 ity of tablet 00:00: [place] [place] [facility] pantoprazol 2017-0 Yes Univer s e 40 mg EC 4-14 ity of tablet 00:00: [place] [facility] pantoprazol 2017-0 Yes Univer s e 40 mg EC 4-14 ity of tablet 00:00: [place] [facility] pantoprazol 2017-0 Yes Univer s e 40 mg EC 4-14 ity of tablet 00:00: [place] [facility] pantoprazol 2017-0 Yes Univer s e 40 mg EC 4-14 ity of tablet 00:00: [place] [facility] pantoprazol 2017-0 Yes Univer s e 40 mg EC 4-14 ity of tablet 00:00: [place] [facility] pantoprazol 2017-0 Yes Univer s e 40 mg EC 4-14 ity of tablet 00:00: [place] [facility] pantoprazol 2017-0 Yes Univer s e 40 mg EC 4-14 ity of tablet 00:00: [place] [facility] pantoprazol 2017-0 Yes Univer s e 40 mg EC 4-14 ity of tablet 00:00: [address] pantoprazol 2017-0 Yes Univer s e 40 mg EC 4-14 ity of tablet 00:00: [place] [facility] pantoprazol 2017-0 Yes Univer s e 40 mg EC 4-14 ity of tablet 00:00: [place] [facility] pantoprazol 2017-0 Yes Univer s e 40 mg EC 4-14 ity of tablet 00:00: [place] [facility] pantoprazol 2017-0 Yes Univer s e 40 mg EC 4-14 ity of tablet 00:00: [place] [facility] pantoprazol 2017-0 Yes Univer s e 40 mg EC 4-14 ity of tablet 00:00: [place] [facility] pantoprazol 2017-0 Yes Univer s e 40 mg EC 4-14 ity of tablet 00:00: [place] [facility] pantoprazol 2017-0 Yes Univer s e 40 mg EC 4-14 ity of tablet 00:00: [place] [facility] pantoprazol 2017-0 Yes Univer s e 40 mg EC 4-14 ity of tablet 00:00: [place] [facility] pantoprazol 2017-0 Yes Univer s e 40 mg EC 4-14 ity of tablet 00:00: [place] 00 [facility] pantoprazol 2017-0 Yes Univer s e 40 mg EC 4-14 ity of tablet 00:00: [place] [facility] pantoprazol 2017-0 Yes Univer s e 40 mg EC 4-14 ity of tablet 00:00: [place] [facility] pantoprazol 2017-0 Yes Univer s e 40 mg EC 4-14 ity of tablet 00:00: [place] [facility] pantoprazol 2017-0 Yes Univer s e 40 mg EC 4-14 ity of tablet 00:00: [place] [facility] pantoprazol 2017-0 Yes Univer s e 40 mg EC 4-14 ity of tablet 00:00: [address] Branch pantoprazol 2017-0 Yes Univer s e 40 mg EC 4-14 ity of tablet 00:00: [place] [facility] pantoprazol 2017-0 Yes Univer s e 40 mg EC 4-14 ity of tablet 00:00: [address] Branch pantoprazol 2017-0 Yes Univer s e 40 mg EC 4-14 ity of tablet 00:00: [address] Branch pantoprazol 2017-0 Yes Univer s e 40 mg EC 4-14 ity of tablet 00:00: [address] Branch pantoprazol 2017-0 Yes Univer s e 40 mg EC 4-14 ity of tablet 00:00: [address] Branch pantoprazol 2017-0 Yes Univer s e 40 mg EC 4-14 ity of tablet 00:00: [place] [facility] pantoprazol 2017-0 Yes Univer s e 40 mg EC 4-14 ity of tablet 00:00: [place] [address] Medical Branch pantoprazol 2017-0 Yes Univer s e 40 mg EC 4-14 ity of tablet 00:00: [place] [address] Medical Branch pantoprazol 2017-0 Yes Univer s e 40 mg EC 4-14 ity of tablet 00:00: [place] [facility] pantoprazol 2017-0 Yes Univer s e 40 mg EC 4-14 ity of tablet 00:00: [place] [facility] pantoprazol 2017-0 Yes Univer s e 40 mg EC 4-14 ity of tablet 00:00: [place] [facility] pantoprazol 2017-0 Yes Univer s e 40 mg EC 4-14 ity of tablet 00:00: [place] 00 [facility] pantoprazol 2017-0 Yes Univer s e 40 mg EC 4-14 ity of tablet 00:00: [place] [facility] pantoprazol 2017-0 Yes Univer s e 40 mg EC 4-14 ity of tablet 00:00: [place] [facility] pantoprazol 2017-0 Yes Univer s e 40 mg EC 4-14 ity of tablet 00:00: [place] [facility] pantoprazol 2017-0 Yes Univer s e 40 mg EC 4-14 ity of tablet 00:00: [place] [facility] pantoprazol 2017-0 Yes Univer s e 40 mg EC 4-14 ity of tablet 00:00: [place] [facility] pantoprazol 2017-0 Yes Univer s e 40 mg EC 4-14 ity of tablet 00:00: [place] [facility] pantoprazol 2017-0 Yes Univer s e 40 mg EC 4-14 ity of tablet 00:00: [place] [facility] pantoprazol 2017-0 Yes Univer s e 40 mg EC 4-14 ity of tablet 00:00: [address] pantoprazol 2017-0 Yes Univer s e 40 mg EC 4-14 ity of tablet 00:00: [place] [facility] pantoprazol 2017-0 Yes Univer s e 40 mg EC 4-14 ity of tablet 00:00: [address] pantoprazol 2017-0 Yes Univer s e 40 mg EC 4-14 ity of tablet 00:00: [place] [facility] pantoprazol 2017-0 Yes Univer s e 40 mg EC 4-14 ity of tablet 00:00: [place] [facility] pantoprazol 2017-0 Yes Univer s e 40 mg EC 4-14 ity of tablet 00:00: [place] [facility] pantoprazol 2017-0 Yes Univer s e 40 mg EC 4-14 ity of tablet 00:00: [place] [facility] pantoprazol 2017-0 Yes Univer s e 40 mg EC 4-14 ity of tablet 00:00: [place] [facility] pantoprazol 2017-0 Yes Univer s e 40 mg EC 4-14 ity of tablet 00:00: [place] [facility] pantoprazol 2017-0 Yes Univer s e 40 mg EC 4-14 ity of tablet 00:00: [place] 00 [facility] pantoprazol 2017-0 Yes Univer s e 40 mg EC 4-14 ity of tablet 00:00: [place] 00 [facility] pantoprazol 2017-0 Yes Univer s e 40 mg EC 4-14 ity of tablet 00:00: [place] [facility] pantoprazol 2017-0 Yes Univer s e 40 mg EC 4-14 ity of tablet 00:00: [place] [facility] pantoprazol 2017-0 Yes Univer s e 40 mg EC 4-14 ity of tablet 00:00: [place] [facility] pantoprazol 2017-0 Yes Univer s e 40 mg EC 4-14 ity of tablet 00:00: [place] [facility] pantoprazol 2017-0 Yes Univer s e 40 mg EC 4-14 ity of tablet 00:00: [place] [facility] pantoprazol 2017-0 Yes Univer s e 40 mg EC 4-14 ity of tablet 00:00: [place] [facility] pantoprazol 2017-0 Yes Univer s e 40 mg EC 4-14 ity of tablet 00:00: [place] [facility] pantoprazol 2017-0 Yes Univer s e 40 mg EC 4-14 ity of tablet 00:00: [address] Branch pantoprazol 2017-0 Yes Univer s e 40 mg EC 4-14 ity of tablet 00:00: [place] [facility] pantoprazol 2017-0 Yes Univer s e 40 mg EC 4-14 ity of tablet 00:00: [place] [facility] pantoprazol 2017-0 Yes Univer s e 40 mg EC 4-14 ity of tablet 00:00: [place] [facility] pantoprazol 2017-0 Yes Univer s e 40 mg EC 4-14 ity of tablet 00:00: [place] [facility] pantoprazol 2017-0 Yes Univer s e 40 mg EC 4-14 ity of tablet 00:00: [place] [facility] pantoprazol 2017-0 Yes Univer s e 40 mg EC 4-14 ity of tablet 00:00: [place] [facility] pantoprazol 2017-0 Yes Univer s e 40 mg EC 4-14 ity of tablet 00:00: [place] [facility] pantoprazol 2017-0 Yes Univer s e 40 mg EC 4-14 ity of tablet 00:00: [place] [facility] pantoprazol 2017-0 Yes Univer s e 40 mg EC 4-14 ity of tablet 00:00: [place] [facility] pantoprazol 2017-0 Yes Univer s e 40 mg EC 4-14 ity of tablet 00:00: [place] [facility] pantoprazol 2017-0 Yes Univer s e 40 mg EC 4-14 ity of tablet 00:00: [place] [facility] pantoprazol 2017-0 Yes Univer s e 40 mg EC 4-14 ity of tablet 00:00: [place] [facility] pantoprazol 2017-0 Yes Univer s e 40 mg EC 4-14 ity of tablet 00:00: [place] [facility] pantoprazol 2017-0 Yes Univer s e 40 mg EC 4-14 ity of tablet 00:00: [place] [facility] pantoprazol 2017-0 Yes Univer s e 40 mg EC 4-14 ity of tablet 00:00: [place] [facility] pantoprazol 2017-0 Yes Univer s e 40 mg EC 4-14 ity of tablet 00:00: [place] [facility] pantoprazol 2017-0 Yes Univer s e 40 mg EC 4-14 ity of tablet 00:00: [address] pantoprazol 2017-0 Yes Univer s e 40 mg EC 4-14 ity of tablet 00:00: [address] pantoprazol 2017-0 Yes Univer s e 40 mg EC 4-14 ity of tablet 00:00: [place] [facility] pantoprazol 2017-0 Yes Univer s e 40 mg EC 4-14 ity of tablet 00:00: [place] [facility] pantoprazol 2017-0 Yes Univer s e 40 mg EC 4-14 ity of tablet 00:00: [place] [facility] pantoprazol 2017-0 Yes Univer s e 40 mg EC 4-14 ity of tablet 00:00: [place] [facility] pantoprazol 2017-0 Yes Univer s e 40 mg EC 4-14 ity of tablet 00:00: [place] [facility] pantoprazol 2017-0 Yes Univer s e 40 mg EC 4-14 ity of tablet 00:00: [address] Branch pantoprazol 2017-0 Yes Univer s e 40 mg EC 4-14 ity of tablet 00:00: [place] [facility] pantoprazol 2017-0 Yes Univer s e 40 mg EC 4-14 ity of tablet 00:00: [place] 00 [facility] pantoprazol 2017-0 Yes Univer s e 40 mg EC 4-14 ity of tablet 00:00: [place] 00 [facility] pantoprazol 2017-0 Yes Univer s e 40 mg EC 4-14 ity of tablet 00:00: [place] 00 [facility] pantoprazol 2017-0 Yes Univer s e 40 mg EC 4-14 ity of tablet 00:00: [place] 00 [facility] pantoprazol 2017-0 Yes Univer s e 40 mg EC 4-14 ity of tablet 00:00: [place] 00 [facility] pantoprazol 2017-0 Yes Univer s e 40 mg EC 4-14 ity of tablet 00:00: [place] [address] [facility] pantoprazol 2017-0 Yes Univer s e 40 mg EC 4-14 ity of tablet 00:00: [place] [facility] pantoprazol 2017-0 Yes Univer s e 40 mg EC 4-14 ity of tablet 00:00: [place] [address] [facility] Branch pantoprazol 2017-0 Yes Univer s e 40 mg EC 4-14 ity of tablet 00:00: [place] [address] [facility] pantoprazol 2017-0 Yes Univer s e 40 mg EC 4-14 ity of tablet 00:00: [place] [address] [facility] pantoprazol 2017-0 Yes Univer s e 40 mg EC 4-14 ity of tablet 00:00: [place] [address] [facility] pantoprazol 2017-0 Yes Univer s e 40 mg EC 4-14 ity of tablet 00:00: [place] 00 [facility] pantoprazol 2017-0 Yes Univer s e 40 mg EC 4-14 ity of tablet 00:00: [place] 00 [facility] pantoprazol 2017-0 Yes Univer s e 40 mg EC 4-14 ity of tablet 00:00: [place] 00 [facility] pantoprazol 2017-0 Yes Univer s e 40 mg EC 4-14 ity of tablet 00:00: [place] 00 [facility] pantoprazol 2017-0 Yes Univer s e 40 mg EC 4-14 ity of tablet 00:00: [place] [address] [facility] Branch aspirin 81 2015-04 Yes 81mg Take 1 Unive rs mg chewable 0-26 tablet by ity of tablet 00:00: mouth [place] 00 daily. Medical Branch aspirin 81 2015-04 [...] [place] 00 daily. Medical Branch aspirin 81 2015-043- No 81mg Take 1 Univ ers mg [...] Immunizations Ordered Filled Immunization Date Status Comments [facility] e Immunization Name Name Influenza Virus [...] [place] [facility] 65+ (FLUAD) Influenza Virus 2021-03-06 Completed Universit y of Vaccine,quad 00:00:00 [place] [facility] 65+ (FLUAD) Influenza Virus 2021-03-06 Completed Universit y of Vaccine,quad 00:00:00 [place] [facility] 65+ (FLUAD) Influenza Virus 2021-03-06 Completed Universit y of Vaccine,quad 00:00:00 [place] [facility] 65+ (FLUAD) Influenza Virus 2021-03-06 Completed Universit y of Vaccine,quad 00:00:00 [place] [facility] 65+ (FLUAD) Influenza Virus 2021-03-06 Completed Universit y of Vaccine,quad 00:00:00 [place] [facility] 65+ (FLUAD) Influenza Virus 2021-03-06 Completed Universit y of Vaccine,quad 00:00:00 [place] [facility] 65+ (FLUAD) Influenza Virus 2021-03-06 Completed Universit y of Vaccine,quad 00:00:00 [place] [facility] 65+ (FLUAD) Influenza Virus 2021-03-06 Completed Universit y of Vaccine,quad 00:00:00 [place] [facility] 65+ (FLUAD) Influenza Virus 2021-03-06 Completed Universit y of Vaccine,quad 00:00:00 [place] [facility] 65+ (FLUAD) Influenza Virus 2021-03-06 Completed Universit y of Vaccine,quad 00:00:00 [place] [facility] 65+ (FLUAD) Vital Signs Vital Name Observation Time Observation Value Comments Source Systolic blood 2022-08-28 18:09:00 134 mm[Hg] Univer sity of pressure [place] [facility] Diastolic blood 2022-08-28 18:09:00 72 mm[Hg] Unive rsity of pressure [place] [facility] Heart rate 2022-08-28 18:09:00 71 /min [facility] [place] [facility] Respiratory rate 2022-08-28 18:09:00 19 /min Univ ers[facility] [place] [facility] Body height 2022-08-28 18:09:00 160 cm [facility] [place] [facility] Body weight 2022-08-28 18:09:00 46.63 kg [facility] [place] [facility] BMI 2022-08-28 18:09:00 18.21 kg/m2 [facility] [place] [facility] Oxygen saturation in 2022-08-28 18:09:00 98 /min University Arterial blood by [facility] Pulse oximetry Branch Systolic blood 2022-06-25 15:38:00 137 mm[Hg] Univer sity of pressure [place] [facility] Diastolic blood 2022-06-25 15:38:00 46 mm[Hg] Unive rsity of pressure [place] [facility] Heart rate 2022-06-25 15:38:00 56 /min [facility] [place] [facility] Body temperature 2022-06-25 15:38:00 36.11 Allie [facility] ersity of [place] [facility] Respiratory rate 2022-06-25 15:38:00 17 /min Univ ersity of [place] [facility] Body height 2022-06-25 15:38:00 160 cm [facility] [place] [facility] Body weight 2022-06-25 15:38:00 46.494 kg [facility] [place] [facility] BMI 2022-06-25 15:38:00 18.16 kg/m2 [facility] [place] [facility] Systolic blood 2022-06-12 13:39:00 124 mm[Hg] Univer sity of pressure [place] [facility] Diastolic blood 2022-06-12 13:39:00 56 mm[Hg] Unive rsity of pressure [place] [facility] Heart rate 2022-06-12 13:39:00 74 /min [facility] [place] [facility] Body temperature 2022-06-12 13:39:00 36.67 Allie [facility] [place] [facility] Respiratory rate 2022-06-12 13:39:00 18 /min Univ [facility] [place] [facility] Oxygen saturation in 2022-06-12 13:39:00 100 /min University of Arterial blood by [facility] Pulse oximetry Branch Body weight 2022-06-12 10:12:00 46.494 kg [facility] [place] [facility] BMI 2022-06-12 10:12:00 18.16 kg/m2 [facility] [place] [facility] Body height 2022-06-06 23:33:00 160 cm [facility] [place] [facility] HEIGHT 2022-05-18 09:00:00 160 cm WEIGHT 2022-05-18 09:00:00 47.9 kg HEIGHT 2022-05-18 09:00:00 160 cm WEIGHT 2022-05-18 09:00:00 47.9 kg HEIGHT 2022-05-18 09:00:00 160 cm WEIGHT 2022-05-18 09:00:00 47.9 kg Systolic blood 2022-05-10 17:56:00 153 mm[Hg] Univer sity of pressure [place] [facility] Diastolic blood 2022-05-10 17:56:00 47 mm[Hg] Unive rsity of pressure [place] [facility] Heart rate 2022-05-10 17:54:00 68 /min [facility] [place] [facility] Respiratory rate 2022-05-10 17:54:00 20 /min Univ [facility] [place] [facility] Body height 2022-05-10 17:54:00 160 cm [facility] [place] [facility] Body weight 2022-05-10 17:54:00 46.085 kg [facility] [place] [facility] BMI 2022-05-10 17:54:00 18.00 kg/m2 [facility] [place] [facility] Oxygen saturation in 2022-05-10 17:54:00 99 /min University of Arterial blood by [facility] Pulse oximetry Branch Systolic blood 2022-02-28 19:10:00 161 mm[Hg] Univer sity of pressure [place] [facility] Diastolic blood 2022-02-28 19:10:00 59 mm[Hg] Unive rsity of pressure [place] [facility] Heart rate 2022-02-28 19:10:00 50 /min [facility] [place] [facility] Oxygen saturation in 2022-02-28 19:10:00 100 /min University of Arterial blood by [place] [employer] Pulse oximetry Branch Body temperature 2022-02-28 19:08:00 36.11 Allie [facility] [place] [facility] Respiratory rate 2022-02-28 19:08:00 16 /min Univ [facility] [place] [facility] Body weight 2022-02-28 19:08:00 49.125 kg [facility] [place] [facility] BMI 2022-02-28 19:08:00 19.18 kg/m2 [facility] [place] [facility] Systolic blood 2022-06-25 15:38:00 137 mm[Hg] Univer sity of pressure [place] [facility] Diastolic blood 2022-06-25 15:38:00 46 mm[Hg] Unive rsity of pressure [place] [facility] Heart rate 2022-06-25 15:38:00 56 /min [facility] [place] [facility] Body temperature 2022-06-25 15:38:00 36.11 Allie [facility] [place] [facility] Respiratory rate 2022-06-25 15:38:00 17 /min Univ [facility] [place] [facility] Body height 2022-06-25 15:38:00 160 cm [facility] [place] [facility] Body weight 2022-06-25 15:38:00 46.494 kg [facility] [place] [facility] BMI 2022-06-25 15:38:00 18.16 kg/m2 [facility] [place] [facility] Systolic blood 2022-06-12 13:39:00 124 mm[Hg] Univer sity of pressure [place] [facility] Diastolic blood 2022-06-12 13:39:00 56 mm[Hg] Unive rsity of pressure [place] [facility] Heart rate 2022-06-12 13:39:00 74 /min [facility] [place] [facility] Body temperature 2022-06-12 13:39:00 36.67 Allie [facility] [place] [facility] Respiratory rate 2022-06-12 13:39:00 18 /min [facility] [place] [facility] Oxygen saturation in 2022-06-12 13:39:00 100 /min University of Arterial blood by [place] [employer] Pulse oximetry Branch Body weight 2022-06-12 10:12:00 46.494 kg [facility] [place] [facility] BMI 2022-06-12 10:12:00 18.16 kg/m2 [facility] Body height 2022-06-06 23:33:00 160 cm [facility] Systolic blood 2022-05-27 16:06:00 109 mm[Hg] [facility] Diastolic blood 2022-05-27 16:06:00 53 mm[Hg] [facility] Heart rate 2022-05-27 16:03:00 69 /min [facility] Body temperature 2022-05-27 16:03:00 37.11 Allie [facility] Respiratory rate 2022-05-27 16:03:00 17 /min [facility] Oxygen saturation in 2022-05-27 16:03:00 96 /min [facility] Arterial blood by Medical Ce nter Pulse oximetry Systolic blood 2022-05-24 07:00:00 117 mm[Hg] [facility] Diastolic blood 2022-05-24 07:00:00 73 mm[Hg] [facility] Heart rate 2022-05-24 07:00:00 81 /min [facility] Body temperature 2022-05-24 07:00:00 36.67 Allie [facility] Respiratory rate 2022-05-24 07:00:00 15 /min [facility] Oxygen saturation in 2022-05-24 07:00:00 96 /min [facility] Arterial blood by Medical Ce nter Pulse oximetry Systolic blood 2022-05-22 08:00:00 126 mm[Hg] [facility] Diastolic blood 2022-05-22 08:00:00 62 mm[Hg] [facility] Heart rate 2022-05-22 08:00:00 63 /min [facility] Respiratory rate 2022-05-22 08:00:00 24 /min [facility] Oxygen saturation in 2022-05-22 08:00:00 98 /min [facility] Arterial blood by Medical Ce nter Pulse oximetry Body temperature 2022-05-21 16:00:00 36.67 Allie [facility] Systolic blood 2022-05-21 08:23:00 127 mm[Hg] [facility] Diastolic blood 2022-05-21 08:23:00 65 mm[Hg] [facility] Heart rate 2022-05-21 07:30:00 76 /min [facility] Respiratory rate 2022-05-21 07:30:00 17 /min [facility] Oxygen saturation in 2022-05-21 07:30:00 98 /min [facility] Arterial blood by Medical Ce nter Pulse oximetry Body temperature 2022-05-21 00:00:00 36.17 Allie [facility] Body height 2022-05-18 09:00:00 160 cm [facility] Body weight 2022-05-18 09:00:00 47.9 kg [facility] BMI 2022-05-18 09:00:00 18.71 kg/m2 [facility] Procedures Procedure Date / Time Performing Clinician Source Performed [facility] PATIENT FINANCIAL 2022-12-20 20:03:45 Doctor Unassigned, No [facility] POLICY Name [facility] HOME HEALTH - OTHER 2022-11-24 05:01:00 [facility]igned, [facility] EXTERNAL PROVIDER - ADC 2022-11-09 05:01:00 Doctor Unassigned, N o [facility] CARDIOLOGY [facility] MEDICAL RELEASE/CLEARANCE 2022-10-04 05:01:00 Doctor Unassigned, No [facility] FORMS [facility] [place] MEDICAL RELEASE/CLEARANCE 2022-08-23 05:01:00 Doctor Unassigned, No [facility] XR HIPS 2 VW RIGHT 2022-08-01 15:29:05 Joseph Cortes [facility] CONSENT/REFUSAL FOR 2022-08-01 15:11:45 Doctor Unassigned, No [facility] [place] [facility]REATMENT Name [facility] [place] ASSIGNMENT OF BENEFITS 2022-08-01 15:11:28 Doctor Unassigned, No [facility] PROTHROMBIN TIME / INR 2022-07-10 14:51:00 [place] [facility] CONSENT/REFUSAL FOR 2022-07-10 14:37:14 Doctor Unassigned, No [facility] [place] [facility] CONSENT/REFUSAL FOR 2022-07-10 14:37:14 [facility] ASSIGNMENT OF BENEFITS 2022-07-10 14:36:56 Doctor Unassigned, No [facility] ASSIGNMENT OF BENEFITS 2022-07-10 14:36:56 Doctor Unassigned, No [facility] PROTHROMBIN TIME / INR 2022-06-25 15:22:00 [place] [facility] PROTHROMBIN TIME / INR 2022-06-12 08:34:00 [facility] 2022-06-12 08:34:00 Omkar [facility] [place] [facility] BASIC METABOLIC PANEL 2022-06-12 08:34:00 Omkar [facility] (NA, K, CL, CO2, GLUCOSE, Medica l Branch BUN, CREATININE, CA) CBC WITH DIFF 2022-06-12 08:34:00 Omkar [facility] ACTIVATED PARTIAL 2022-06-12 08:34:00 Demond [facility] MAGNESIUM 2022-06-12 08:34:00 Omkar [facility] [place] [facility] BASIC METABOLIC PANEL 2022-06-12 08:34:00 Omkar [facility] (NA, K, CL, CO2, GLUCOSE, Medica l Branch BUN, CREATININE, CA) CBC WITH DIFF 2022-06-12 08:34:00 Omkar [facility] [place] [facility] PROTHROMBIN TIME / INR 2022-06-12 08:34:00 Mariia Cardona Un [facility] ACTIVATED PARTIAL 2022-06-12 08:34:00 Demond [facility] ACTIVATED PARTIAL 2022-06-12 02:29:00 Dem[facility] ACTIVATED PARTIAL 2022-06-12 02:29:00 Dem[facility] EXTRA TUBE LT. GREEN 2022-06-12 00:00:00 Mariia Cardona [facility] EXTRA TUBE LT. GREEN 2022-06-12 00:00:00 Mariia Cardona [facility] BLOOD CULTURE SCREEN 2022-06-11 19:48:00 Leslie Espitia U [facility] BLOOD CULTURE SCREEN 2022-06-11 19:48:00 Leslie Espitia [facility] BLOOD CULTURE SCREEN 2022-06-11 19:42:00 Leslie Espitia [facility] BLOOD CULTURE SCREEN 2022-06-11 19:42:00 Leslie Espitia [facility] TRANSESOPHAGEAL ECHO 2022-06-11 15:58:00 Juan Francisco [facility] ([facility]) COMPLETE W/ DOPPLER [facility] AND COLOR TRANSESOPHAGEAL ECHO 2022-06-11 15:58:00 Juan Francisco [facility] ([facility]) COMPLETE W/ DOPPLER [facility] AND COLOR ACTIVATED PARTIAL 2022-06-11 14:52:00 [facility] ACTIVATED PARTIAL 2022-06-11 14:52:00 [facility] PROTHROMBIN TIME / INR 2022-06-11 08:57:00 Mariia Cardona [facility] BASIC METABOLIC PANEL 2022-06-11 08:57:00 Les Ortega [facility] (NA, K, CL, CO2, GLUCOSE, Medica l Branch BUN, CREATININE, CA) MAGNESIUM 2022-06-11 08:57:00 Les Ortgea [facility] ACTIVATED PARTIAL 2022-06-11 08:57:00 [facility]ond [facility] MAGNESIUM 2022-06-11 08:57:00 Les Ortega [facility] BASIC METABOLIC PANEL 2022-06-11 08:57:00 Les Ortega [facility] (NA, K, CL, CO2, GLUCOSE, Medica l Branch BUN, CREATININE, CA) PROTHROMBIN TIME / INR 2022-06-11 08:57:00 Kirk AmbrosioMariia wright [facility] ACTIVATED PARTIAL 2022-06-11 08:57:00 [facility] HB ECG ROUTINE & RHYTHM 2022-06-11 07:47:[address] [facility] ACTIVATED PARTIAL 2022-06-10 20:19:00 [facility]ond [facility] ACTIVATED PARTIAL 2022-06-10 20:19:00 [facility] HB ECG ROUTINE & RHYTHM 2022-06-10 16:35:[address] [facility] HB ECG ROUTINE & RHYTHM 2022-06-10 16:35:[address] [facility] MAGNESIUM 2022-06-10 08:20:00 [facility] BASIC METABOLIC PANEL 2022-06-10 08:20:00 Omkar eda [facility] (NA, K, CL, CO2, GLUCOSE, Medica l Branch BUN, CREATININE, CA) CBC WITH DIFF 2022-06-10 08:20:00 Omkar eda [facility] PROTHROMBIN TIME / INR 2022-06-10 08:20:00 [facility] 2022-06-10 08:20:00 [facility] MAGNESIUM 2022-06-10 08:20:00 Leslie Espitia [facility] BASIC METABOLIC PANEL 2022-06-10 08:20:00 Leslie Espitia [facility] (NA, K, CL, CO2, GLUCOSE, Medica l Branch BUN, CREATININE, CA) CBC WITH DIFF 2022-06-10 08:20:00 Leslie Espitia [facility] PROTHROMBIN TIME / INR 2022-06-10 08:20:00 Leslie Espitia [facility] ACTIVATED PARTIAL 2022-06-10 08:20:00 Demond, [facility] EKG-12 LEAD 2022-06-10 04:08:10 [facility] 2022-06-09 23:33:00 Demond, [facility] ACTIVATED PARTIAL 2022-06-09 23:33:00 Demond, [facility] ACTIVATED PARTIAL 2022-06-09 22:22:00 Demond, [facility] ACTIVATED PARTIAL 2022-06-09 22:22:00 Demond, [facility] BASIC METABOLIC PANEL 2022-06-09 20:19:00 Demond [facility] (NA, K, CL, CO2, GLUCOSE, Medica l Branch BUN, CREATININE, CA) BASIC METABOLIC PANEL 2022-06-09 20:19:00 Demond [facility] (NA, K, CL, CO2, GLUCOSE, Medica l Branch BUN, CREATININE, CA) HB ECG ROUTINE & RHYTHM 2022-06-09 16:45:40 Demond [facility] HB ECG ROUTINE & RHYTHM 2022-06-09 16:45:40 Demond [facility] MAGNESIUM 2022-06-09 10:03:00 Leslie Espitia [facility] BASIC METABOLIC PANEL 2022-06-09 10:03:00 Leslie Espitia [facility] (NA, K, CL, CO2, GLUCOSE, Medica l Branch BUN, CREATININE, CA) CBC WITH DIFF 2022-06-09 10:03:00 Leslie Espitia [facility] PROTHROMBIN TIME / INR 2022-06-09 10:03:00 [facility] 2022-06-09 10:03:00 Leslie Espitia [facility] BASIC METABOLIC PANEL 2022-06-09 10:03:00 Leslie Espitia [facility] (NA, K, CL, CO2, GLUCOSE, Medica l Branch BUN, CREATININE, CA) CBC WITH DIFF 2022-06-09 10:03:00 [facility] PROTHROMBIN TIME / INR 2022-06-09 10:03:00 Kirk Hemyari [facility] EKG-12 LEAD 2022-06-09 04:12:20 Kirk Hemyari, [facility] EKG-12 LEAD 2022-06-09 04:12:20 Kirk Hemyari, [facility] PROTHROMBIN TIME / INR 2022-06-08 17:35:00 Omkar eda [facility] PROTHROMBIN TIME / INR 2022-06-08 17:35:00 [facility]-12 LEAD 2022-06-08 17:18:35 [facility] 2022-06-08 17:18:35 Kirk Hemyari, [facility] MAGNESIUM 2022-06-08 10:46:00 Omkar eda [facility] BASIC METABOLIC PANEL 2022-06-08 10:46:00 Leslie Espitia [facility] (NA, K, CL, CO2, GLUCOSE, Medica l Branch BUN, CREATININE, CA) CBC WITH DIFF 2022-06-08 10:46:00 Leslie Espitia [facility] MAGNESIUM 2022-06-08 10:46:00 Omkar eda [facility] BASIC METABOLIC PANEL 2022-06-08 10:46:00 Leslie Espitia [facility] (NA, K, CL, CO2, GLUCOSE, Medica l Branch BUN, CREATININE, CA) CBC WITH DIFF 2022-06-08 10:46:00 Leslie Espitia [facility] EKG-12 LEAD 2022-06-08 03:55:51 Kirk Connell [facility] EKG-12 LEAD 2022-06-08 03:55:51 Kirk Ambrosioadriana [facility] TRANSTHORACIC ECHO (TTE) 2022-06-07 17:56:10 Kirk Ambrosioadriana [facility] TRANSTHORACIC ECHO (TTE) 2022-06-07 17:56:10 Kirk Connell [facility] HB ECG ROUTINE & RHYTHM 2022-06-07 15:36:46 Leslie Espitia [facility] HB ECG ROUTINE & RHYTHM 2022-06-07 15:36:46 Leslie Espitia [facility] URINE DRUG (LCMSMS) - 2022-06-07 15:01:00 Opal Yen [facility] COMPREHENSIVE DRUG [facility] URINE DRUG (LCMSMS) - 2022-06-07 15:01:00 Opal Yen [facility] COMPREHENSIVE DRUG [facility] CBC WITH DIFF 2022-06-07 10:51:[address] [facility] BASIC METABOLIC PANEL 2022-06-07 10:51:00 Opal Yen [facility] (NA, K, CL, CO2, GLUCOSE, Medica l Branch BUN, CREATININE, CA) IRON PANEL 2022-06-07 10:51:[address] [facility] BASIC METABOLIC PANEL 2022-06-07 10:51:00 Opal Yen [facility] (NA, K, CL, CO2, GLUCOSE, Medica l Branch BUN, CREATININE, CA) IRON PANEL 2022-06-07 10:51:[address] [facility] CBC WITH DIFF 2022-06-07 10:51:[address] [facility] BASIC METABOLIC PANEL 2022-06-07 02:29:00 Opal Yen [facility] (NA, K, CL, CO2, GLUCOSE, Medica l Branch BUN, CREATININE, CA) HEPATIC FUNCTION PANEL 2022-06-07 02:29:00 Opal Yen [facility] ([id number]) (ALB,T.PRO,BILI Medical Branch T,BU/BC,ALT,AST,ALK PHOS) MAGNESIUM 2022-06-07 02:29:[address] [facility] FOLATE 2022-06-07 02:29:[address] [facility] MAGNESIUM 2022-06-07 02:29:[address] [facility] FOLATE 2022-06-07 02:29:[address] [facility] HEPATIC FUNCTION PANEL 2022-06-07 02:29:00 Opal Yen [facility] ([id number]) (ALB,T.PRO,BILI Medical Branch T,BU/BC,ALT,AST,ALK PHOS) BASIC METABOLIC PANEL 2022-06-07 02:29:00 Opal Yen [facility] (NA, K, CL, CO2, GLUCOSE, Medica l Branch BUN, CREATININE, CA) HB ECG ROUTINE & RHYTHM 2022-06-07 00:50:00 Opal Yen [facility] PROTHROMBIN TIME / INR 2022-06-07 00:33:00 Opal Y[facility] ACTIVATED PARTIAL 2022-06-07 00:33:[address] [facility] CBC WITH DIFF 2022-06-07 00:33:[address] [facility] FERRITIN SERUM 2022-06-07 00:33:[address] [facility] VITAMIN B12, LEVEL 2022-06-07 00:33:00 Opal Yen [facility] FERRITIN SERUM 2022-06-07 00:33:[address] [facility] VITAMIN B12, LEVEL 2022-06-07 00:33:00 Opal Yen [facility] CBC WITH DIFF 2022-06-07 00:33:[address] [facility] PROTHROMBIN TIME / INR 2022-06-07 00:33:00 Opal Yen [facility] ACTIVATED PARTIAL 2022-06-07 00:33:[address] [facility] PROTHROMBIN TIME / INR 2022-06-06 16:10:00 [place] Dan [facility] HOSPITAL ADMISSION 2022-06-06 06:01:00 Doctor Unassigned, No Uni [facility] CBC W/PLT COUNT & AUTO 2022-05-27 04:37:00 Rick [facility] DIFFERENTIAL [employer] PROTHROMBIN TIME/INR 2022-05-27 04:37:00 Rick [facility] MAGNESIUM 2022-05-27 04:37:00 Rubén Meaghan Melba [facility] BASIC METABOLIC PANEL 2022-05-27 04:37:[address] [facility] CBC W/PLT COUNT & AUTO 2022-05-27 04:37:00 Rick [facility] DIFFERENTIAL [employer] APTT 2022-05-26 09:28:00 [facility] [employer] CBC W/PLT COUNT & AUTO 2022-05-26 06:27:00 Rick, [facility] PROTHROMBIN TIME/INR 2022-05-26 06:27:00 Rick [facility] MAGNESIUM 2022-05-26 06:27:00 [facility]OL[facility] PANEL 2022-05-26 06:27:[address] [facility] APTT 2022-05-26 06:27:00 [facility] [employer] CBC W/PLT COUNT & AUTO 2022-05-26 06:27:00 Rick [facility] DIFFERENTIAL Center APTT 2022-05-26 00:28:00 [place] [employer] APTT 2022-05-25 22:25:00 Efrain, [facility] [employer] APTT 2022-05-25 14:41:00 [facility] [employer] APTT 2022-05-25 12:13:00 [place], [facility] [employer] BASIC METABOLIC PANEL 2022-05-25 07:29:00 Robert, [facility] MAGNESIUM 2022-05-25 07:29:00 Robert, [facility] ECG 12-LEAD 2022-05-25 06:42:59 Unknown, Hl[facility] ECG 12-LEAD 2022-05-25 06:42:59 Robert, [facility] ECG 12-LEAD 2022-05-25 06:42:59 Unknown, Hl7 [facility] APTT 2022-05-25 05:57:00 [place], [facility] APTT 2022-05-25 04:47:00 Efrain, [facility] CBC W/PLT COUNT & AUTO 2022-05-25 03:20:00 Rick, [facility] PROTHROMBIN TIME/INR 2022-05-25 03:20:00 Rick [facility] APTT 2022-05-25 03:20:00 Meaghan [place] [facility] CBC W/PLT COUNT & AUTO 2022-05-25 03:20:00 Rick, [facility] APTT 2022-05-24 20:02:00 Efrain [facility] APTT 2022-05-24 17:36[facility] 2022-05-24 10:31:00 Rick, [facility] APTT 2022-05-24 03:41:00 [place], [facility] APTT 2022-05-24 01:14:00 [facility] W/PLT COUNT & AUTO 2022-05-24 01:14:00 Rick, [facility] BASIC METABOLIC PANEL 2022-05-24 01:14:00 Rick [facility] MAGNESIUM 2022-05-24 01:14:00 Rick, [facility] PHOSPHORUS 2022-05-24 01:14:00 Rick, [facility] PROTHROMBIN TIME/INR 2022-05-24 01:14:00 Rick, [facility] CBC W/PLT COUNT & AUTO 2022-05-24 01:14:00 Rick, [facility] APTT 2022-05-23 18:18:00 [facility] APTT 2022-05-23 16:11:00 [facility] APTT 2022-05-23 08:24:00 [facility] CBC W/PLT COUNT & AUTO 2022-05-23 04:23:00 Rick, [facility] BASIC METABOLIC PANEL 2022-05-23 04:23:00 Rick, [facility] MAGNESIUM 2022-05-23 04:23:00 Rick, [facility] PHOSPHORUS 2022-05-23 04:23:00 Rick, [facility] PROTHROMBIN TIME/INR 2022-05-23 04:23:00 Rick, [facility] APTT 2022-05-23 04:23:00 [place] [facility] CBC W/PLT COUNT & AUTO 2022-05-23 04:23:00 Rick, [facility] APTT 2022-05-22 20:49:00 [place] [facility] HEMOGLOBIN AND HEMATOCRIT 2022-05-22 17:54:00 Rick, [facility] APTT 2022-05-22 13:59:00 [place] [facility] CBC W/PLT COUNT & AUTO 2022-05-22 02:47:00 Rick, [facility] BASIC METABOLIC PANEL 2022-05-22 02:47:00 Rick, [facility] MAGNESIUM 2022-05-22 02:47:00 [facility] 2022-05-22 02:47:00 [facility]/INR 2022-05-22 02:47:00 Rick, [facility] APTT 2022-05-22 02:47:00 SerBertrand willoughby [facility] [employer] CBC W/PLT COUNT & AUTO 2022-05-22 02:47:00 Rick [facility] PREPARE RBC 2022-05-21 23:54:00 AdhiVinayak [facility] HEMOGLOBIN AND HEMATOCRIT 2022-05-21 21:35:00 [facility]OT[facility]/INR 2022-05-21 14:45:00 Rick, [facility] APTT 2022-05-21 14:45:00 Efrain [facility] 2D ECHO W/ DOPPLER 2022-05-21 13:06:46 Vitaly Flores [facility] (CW/PW/COLOR) [employer] 2D ECHO W/ DOPPLER 2022-05-21 13:06:46 Vitaly Flores [facility] (CW/PW/COLOR) [employer] HEMOGLOBIN AND HEMATOCRIT 2022-05-21 12:50:00 Rick [facility] TSH/FREE T4 IF INDICATED 2022-05-21 12:50:00 Shanelle Zuniga [facility] APTT 2022-05-21 08:34:00 Efrain [facility] CBC W/PLT COUNT & AUTO 2022-05-21 05:00:00 Rick, [facility] BASIC METABOLIC PANEL 2022-05-21 05:00:00 Rick, [facility] MAGNESIUM 2022-05-21 05:00:00 Rick [facility] PHOSPHORUS 2022-05-21 05:00:00 Rick, [facility] CBC W/PLT COUNT & AUTO 2022-05-21 05:00:00 Rick, [facility] PROTHROMBIN TIME/INR 2022-05-21 01:15:00 Rick, [facility] APTT 2022-05-21 01:15:00 [facility] HEMO[facility] HEMATOCRIT 2022-05-20 20:25:00 Rick [facility] PROTHROMBIN TIME/INR 2022-05-20 17:07:00 Rick [facility] APTT 2022-05-20 17:07:00 Lynnette Hsu [facility] HEMOGLOBIN AND HEMATOCRIT 2022-05-20 13:03:00 Rick, [facility] APTT 2022-05-20 13:02:00 Lynnette Hsu [facility] TRANSFUSE LEUKO-REDUCED 2022-05-20 08:38:00 Damir Joyce [facility] RED BLOOD CELLS Center PREPARE RBC 2022-05-20 08:19:00 Vinayak Cook [facility] APTT 2022-05-20 05:03:00 Efrain [facility] CBC W/PLT COUNT & AUTO 2022-05-20 03:36:00 Rick, [facility] BASIC METABOLIC PANEL 2022-05-20 03:36:00 Rick [facility] MAGNESIUM 2022-05-20 03:36:00 Rick [facility] PHOSPHORUS 2022-05-20 03:36:00 Rick [facility] PROTHROMBIN TIME/INR 2022-05-20 03:36:00 Rick, [facility] CBC W/PLT COUNT & AUTO 2022-05-20 03:36:00 Rick [facility] APTT 2022-05-19 22:59:00 Efrain [facility] HEMOGLOBIN AND HEMATOCRIT 2022-05-19 21:17:00 [facility]OT[facility]/INR 2022-05-19 17:05:00 Rick, [facility] APTT 2022-05-19 17:05:00 Efrain [facility] HEMOGLOBIN AND HEMATOCRIT 2022-05-19 12:11:00 Rick, [facility] PROTHROMBIN TIME/INR 2022-05-19 12:11:00 Efrain [facility] ECG 12-LEAD 2022-05-19 11:39:33 Unknown, Hl7 [facility] ECG 12-LEAD 2022-05-19 11:39:33 Vitaly Flores [facility] ECG 12-LEAD 2022-05-19 11:39:33 Unknown, H[facility]7 [facility] POCT-GLUCOSE METER 2022-05-19 05:28:00 [facility] [employer] CBC W/PLT COUNT & AUTO 2022-05-19 03:08:00 Rick [facility] DIFFERENTIAL [employer] CBC W/PLT COUNT & AUTO 2022-05-19 03:08:00 Rick [facility] BASIC METABOLIC PANEL 2022-05-19 03:07:00 Rick [facility] MAGNESIUM 2022-05-19 03:07:00 Rick [facility] PHOSPHORUS 2022-05-19 03:07:00 Rick [facility] PROTHROMBIN TIME/INR 2022-05-19 03:07:00 Rick, [facility] POCT-GLUCOSE METER 2022-05-18 23:02:00 Vinayak Cook [facility] ECG 12-LEAD 2022-05-18 21:08:01 Unknown, Hl7 [facility] ECG 12-LEAD 2022-05-18 21:08:01 [facility], [facility] 12-LEAD 2022-05-18 21:08:01 Unknown, Hl7 Doctor [facility] BUN AND CREATININE 2022-05-18 20:38:00 [facility] W/RATIO [facility] POTASSIUM 2022-05-18 20:38:00 [facility] MAGNESIUM 2022-05-18 20:38:00 [facility] HEMOGLOBIN AND HEMATOCRIT 2022-05-18 20:01:00 Rick [facility] POCT-GLUCOSE METER 2022-05-18 18:56:00 AdhiVinayak [facility] CTA ABDOMEN & PELVIS 2022-05-18 17:42:00 Rick [facility] URINALYSIS W/ REFLEX 2022-05-18 15:23:00 Rick [facility] URINE CULTURE [employer] PROTHROMBIN TIME/INR 2022-05-18 15:23:00 Rick, [facility] HIGH SENSITIVITY TROPONIN 2022-05-18 15:23:00 Rick [facility] URINE CULTURE 2022-05-18 15:23:00 Rick, [facility] CBC (HEMOGRAM ONLY) 2022-05-18 13:05:00 Rick [facility] CALCIUM, IONIZED 2022-05-18 13:05:00 Rick [facility] POCT-GLUCOSE METER 2022-05-18 12:55:00 Sean Graham [facility] Jesus Alberto [employer] ABORH, MANUAL 2022-05-18 11:55:00 Floridalma Monsalve [facility] TYPE AND SCREEN, 2022-05-18 11:02:00 Rick, [facility] AUTOMATED [employer] COMPREHENSIVE METABOLIC 2022-05-18 11:01:00 Rick, [facility] PANEL Center MAGNESIUM 2022-05-18 11:01:00 Rick, [facility] PHOSPHORUS 2022-05-18 11:01:00 Rick, [facility] LACTIC ACID, VENOUS 2022-05-18 11:01:00 Rick, [facility] LIPASE 2022-05-18 11:01:00 Rick, [facility] B-TYPE NATRIURETIC FACTOR 2022-05-18 11:01:00 Rick, [facility] (BNP) [employer] PT/APTT 2022-05-18 11:00:00 Rick, [facility] FIBRINOGEN 2022-05-18 11:00:00 Rick, [facility] ECG 12-LEAD 2022-05-18 10:34:14 Unknown, Hl7 [facility] ECG 12-LEAD 2022-05-18 10:34:14 Rick, [facility] ECG 12-LEAD 2022-05-18 10:34:14 Unknown, Hl7 [facility] HB ECG ROUTINE & RHYTHM 2022-05-10 17:51:31 Hima [facility] PROTHROMBIN TIME / INR 2022-05-09 16:24:00 [place] Dan [facility] CONSENT/REFUSAL FOR 2022-05-09 16:13:00 Doctor Unassigned, [facility] ASSIGNMENT OF BENEFITS 2022-05-09 16:12:36 Doctor Unassigned, No [facility] ASSIGNMENT OF BENEFITS 2022-05-09 16:12:36 Doctor Unassigned, No [facility] PROTHROMBIN TIME / INR 2022-04-11 15:46:00 [place] [facility] CONSENT/REFUSAL FOR 2022-04-11 15:36:05 Doctor Unassigned, [facility] Name Medical Branch ASSIGNMENT OF BENEFITS 2022-04-11 15:35:52 Doctor Unassigned, No [facility] ASSIGNMENT OF BENEFITS 2022-04-11 15:35:52 Doctor Unassigned, No [facility] MEDICATION CORRESPONDENCE 2022-03-18 06:01:00 Doctor Unassigned, No [facility] PROTHROMBIN TIME / INR 2022-03-14 15:29:00 [place] Dan [facility] CONSENT/REFUSAL FOR 2022-03-14 15:15:12 Doctor Unassigned, No Un iversity [facility] DIAGNOSIS AND TREATMENT [facility] [place] ASSIGNMENT OF BENEFITS 2022-03-14 15:15:00 Doctor Unassigned, No [facility] ASSIGNMENT OF BENEFITS 2022-03-14 15:15:00 Doctor Unassigned, No [facility] CONSENT/REFUSAL FOR 2022-02-28 18:42:52 Doctor Unassigned, No Un iversity [facility] DIAGNOSIS AND TREATMENT [facility] CONSENT/REFUSAL FOR 2022-02-14 14:32:17 Doctor Unassigned, No [facility] ASSIGNMENT OF BENEFITS 2022-02-14 14:32:04 Doctor Unassigned, No [facility] ASSIGNMENT OF BENEFITS 2021-12-14 17:04:14 Doctor Unassigned, No [facility] HOSPITAL ADMISSION 2021-11-23 05:01:00 Doctor Unassigned, No Uni [facility] Plan of Care Planned Activity [...] Center DEPRESSION SCREENING (12+)] Future Scheduled 2022-04-[address] [facility] Test 00:00:00 (12+) [code = Medical Center DEPRESSION SCREENING (12+)] Future Scheduled 2022-04-15 FALLS RISK SCREENING [facility] Test 00:00:00 [code = FALLS RISK Medical C enter SCREENING] Future Scheduled 2022-04-15 FALLS RISK SCREENING [facility] [...] breast Medical C enter (procedure) [code = 004490432] Future Scheduled 1953 CT Colonography (combo) [facility] Test 00:00:00 [code = CT Colonography [facility] (combo)] Future Scheduled 1953 Screening for malignant [facility] Test 00:00:00 neoplasm of colon Medical Ce nter (procedure) [code = 037589922] Future Scheduled 1953 Screening for malignant [facility] Test 00:00:00 neoplasm of colon Medical Ce nter (procedure) [code = 554049255] Future Scheduled 1953 DXA SCAN [code = DXA [facility] Test 00:00:00 SCAN] [facility] Future Scheduled 1953 Screening for malignant [facility] Test 00:00:00 neoplasm of colon Medical Ce nter (procedure) [code = 080288167] Future Scheduled 1953 Screening for malignant [facility] Test 00:00:00 neoplasm of colon Medical Ce nter (procedure) [code = 738525744] Future Scheduled 1953 Sigmoidoscopy [code = [facility] S[facility] Future Scheduled 1953 Screening for malignant [facility] Test 00:00:00 neoplasm of breast Medical C enter (procedure) [code = 248692091] Future Scheduled 1953 CT Colonography (combo) [facility] Test 00:00:00 [code = CT Colonography [facility] (combo)] Future Scheduled 1953 Screening for malignant [facility] Test 00:00:00 neoplasm of colon Medical Ce nter (procedure) [code = 692826393] Future Scheduled 1953 Screening for malignant [facility] Test 00:00:00 neoplasm of colon Medical Ce nter (procedure) [code = 472623396] Future Scheduled 1953 DXA SCAN [code = DXA [facility] Test 00:00:00 SCAN] [facility] Future Scheduled 1953 Screening for malignant [facility] Test 00:00:00 neoplasm of colon Medical Ce nter (procedure) [code = 355890786] Future Scheduled 1953 Screening for malignant [facility] Test 00:00:00 neoplasm of colon Medical Ce nter (procedure) [code = 972221649] Future Scheduled 1953 Sigmoidoscopy [code = [facility]:00 Sigmoidoscopy] [facility] Future Scheduled 1953 Screening for malignant [facility] Test 00:00:00 neoplasm of breast Medical C enter (procedure) [code = 341929571] Future Scheduled 1953 CT Colonography (combo) [facility] Test 00:00:00 [code = CT Colonography [facility] (combo)] Future Scheduled 1953 Screening for malignant [facility] Test 00:00:00 neoplasm of colon Medical Ce nter (procedure) [code = 990105943] Future Scheduled 1953 Screening for malignant [facility] Test 00:00:00 neoplasm of colon Medical Ce nter (procedure) [code = 886534033] Future Scheduled 1953 DXA SCAN [code = DXA [facility] Test 00:00:00 SCAN] [facility] Future Scheduled 1953 Screening for malignant [facility] Test 00:00:00 neoplasm of colon Medical Ce nter (procedure) [code = 496418451] Future Scheduled 1953 Screening for malignant [facility] Test 00:00:00 neoplasm of colon Medical Ce nter (procedure) [code = 203898433] Future Scheduled 1955 Sigmoidoscopy [facility]code = [facility]] [facility] Future Scheduled 1953 Screening for malignant [facility] 00:00:00 neoplasm of breast Medical C enter (procedure) [code = 090296618] Future Scheduled 1953 CT Colonography (combo) [facility] 00:00:00 [code = CT Colonography [facility] (combo)] Future Scheduled 1953 Screening for malignant [facility] 00:00:00 neoplasm of colon Medical Ce nter (procedure) [code = 861329967] Future Scheduled 1953 Screening for malignant [facility] 00:00:00 neoplasm of colon Medical Ce nter (procedure) [code = 434811681] Future Scheduled 1953 DXA SCAN [code = DXA [facility] 00:00:00 SCAN] [facility] Future Scheduled 1953 Screening for malignant [facility] 00:00:00 neoplasm of colon Medical Ce nter (procedure) [code = 781326711] Future Scheduled 1953 Screening for malignant [facility] 00:00:00 neoplasm of colon Medical Ce nter (procedure) [code = 912173664] Future Scheduled 1953 Sigmoidoscopy [code = [facility] 00:[facility] Sigmoidoscopy] [facility] Future Scheduled 1953 Screening for malignant [facility] 00:00:00 neoplasm of breast Medical C enter (procedure) [code = 891082102] Future Scheduled 1953 CT Colonography (combo) [facility] 00:00:00 [code = CT Colonography [facility] (combo)] Future Scheduled 1953 Screening for malignant [facility] 00:00:00 neoplasm of colon Medical Ce nter (procedure) [code = 139830257] Future Scheduled 1953 Screening for malignant [facility] 00:00:00 neoplasm of colon Medical Ce nter (procedure) [code = 122139001] Future Scheduled 1953 DXA SCAN [code = DXA [facility] 00:00:00 SCAN] [facility] Future Scheduled 1953 Screening for malignant [facility] 00:00:00 neoplasm of colon Medical Ce nter (procedure) [code = 188092560] Future Scheduled 1953 Screening for malignant [facility] 00:00:00 neoplasm of colon Medical Ce nter (procedure) [code = 697268837] Future Scheduled 1953 Sigmoidoscopy [code = [facility] 00:[facility] Sigmoidoscopy] [facility] Future Scheduled 1953 Screening for malignant [facility] 00:00:00 neoplasm of breast Medical C enter (procedure) [code = 505530508] Future Scheduled 1953 CT Colonography (combo) [facility] 00:00:00 [code = CT Colonography [facility] (combo)] Future Scheduled 1953 Screening for malignant [facility] 00:00:00 neoplasm of colon Medical Ce nter (procedure) [code = 925966399] Future Scheduled 1953 Screening for malignant [facility] 00:00:00 neoplasm of colon Medical Ce nter (procedure) [code = 424237313] Future Scheduled 1953 DXA SCAN [code = DXA [facility] 00:00:00 SCAN] [facility] Future Scheduled 1953 Screening for malignant [facility] 00:00:00 neoplasm of colon Medical Ce nter (procedure) [code = 673943442] Future Scheduled 1953 Screening for malignant [facility] 00:00:00 neoplasm of colon Medical Ce nter (procedure) [code = 188465162] Future Scheduled 1953 Sigmoidoscopy [code = [facility] 00:[facility] Sigmoidoscopy] [facility] Future Scheduled 1953 Screening for malignant [facility] 00:00:00 neoplasm of breast Medical C enter (procedure) [code = 624861810] Future Scheduled 1953 CT Colonography (combo) [facility] 00:00:00 [code = CT Colonography [facility] (combo)] Future Scheduled 1953 Screening for malignant [facility] 00:00:00 neoplasm of colon Medical Ce nter (procedure) [code = 761029192] Future Scheduled 1953 Screening for malignant [facility] 00:00:00 neoplasm of colon Medical Ce nter (procedure) [code = 203390976] Future Scheduled 1953 DXA SCAN [code = DXA [facility] 00:00:00 SCAN] [facility] Future Scheduled 1953 Screening for malignant [facility] 00:00:00 neoplasm of colon Medical Ce nter (procedure) [code = 907046428] Future Scheduled 1953 Screening for malignant [facility] 00:00:00 neoplasm of colon Medical Ce nter (procedure) [code = 888596787] Future Scheduled 1953 Sigmoidoscopy [code = [facility] 00:[facility] Sigmoidoscopy] [facility] Future Scheduled 1953 Screening for malignant [facility] 00:00:00 neoplasm of breast Medical C enter (procedure) [code = 459146985] Future Scheduled 1953 CT Colonography (combo) [facility] 00:00:00 [code = CT Colonography [facility] (combo)] Future Scheduled 1953 Screening for malignant [facility] 00:00:00 neoplasm of colon Medical Ce nter (procedure) [code = 080330082] Future Scheduled 1953 Screening for malignant [facility] 00:00:00 neoplasm of colon Medical Ce nter (procedure) [code = 929382313] Future Scheduled 1953 DXA SCAN [code = DXA [facility] 00:00:00 SCAN] [facility] Future Scheduled 1953 Screening for malignant [facility] 00:00:00 neoplasm of colon Medical Ce nter (procedure) [code = 533550484] Future Scheduled 1953 Screening for malignant [facility] 00:00:00 neoplasm of colon Medical Ce nter (procedure) [code = 486637182] Future Scheduled 1953 Sigmoidoscopy [code = [facility] 00:[facility] Sigmoidoscopy] [facility] Future Scheduled 1953 Screening for malignant [facility] 00:00:00 neoplasm of breast Medical C enter (procedure) [code = 898716802] Future Scheduled 1953 CT Colonography (combo) [facility] 00:00:00 [code = CT Colonography [facility] (combo)] Future Scheduled 1953 Screening for malignant [facility] 00:00:00 neoplasm of colon Medical Ce nter (procedure) [code = 729678631] Future Scheduled 1953 Screening for malignant [facility] 00:00:00 neoplasm of colon Medical Ce nter (procedure) [code = 274192987] Future Scheduled 1953 DXA SCAN [code = DXA [facility] 00:00:00 SCAN] [facility] Future Scheduled 1953 Screening for malignant [facility] 00:00:00 neoplasm of colon Medical Ce nter (procedure) [code = 487744987] Future Scheduled 1953 Screening for malignant [facility] 00:00:00 neoplasm of colon Medical Ce nter (procedure) [code = 251944776] Future Scheduled 1953 Sigmoidoscopy [code = [facility] 00:[facility] Sigmoidoscopy] [facility] Future Scheduled 1953 Screening for malignant [facility] 00:00:00 neoplasm of breast Medical C enter (procedure) [code = 351446138] Future Scheduled 1953 CT Colonography (combo) [facility] 00:00:00 [code = CT Colonography [facility] (combo)] Future Scheduled 1953 Screening for malignant [facility] 00:00:00 neoplasm of colon Medical Ce nter (procedure) [code = 767068397] Future Scheduled 1953 Screening for malignant [facility] 00:00:00 neoplasm of colon Medical Ce nter (procedure) [code = 663250793] Future Scheduled 1953 DXA SCAN [code = DXA [facility] 00:00:00 SCAN] [facility] Future Scheduled 1953 Screening for malignant [facility] 00:00:00 neoplasm of colon Medical Ce nter (procedure) [code = 629919771] Future Scheduled 1953 Screening for malignant [facility] 00:00:00 neoplasm of colon Medical Ce nter (procedure) [code = 994230899] Future Scheduled 1953 Sigmoidoscopy [code = [facility] 00:[facility] Sigmoidoscopy] [facility] Future Scheduled 1953 Screening for malignant [facility] 00:00:00 neoplasm of breast Medical C enter (procedure) [code = 010708209] Future Scheduled 1953 CT Colonography (combo) [facility] 00:00:00 [code = CT Colonography [facility] (combo)] Future Scheduled 1953 Screening for malignant [facility] 00:00:00 neoplasm of colon Medical Ce nter (procedure) [code = 187750478] Future Scheduled 1953 Screening for malignant [facility] 00:00:00 neoplasm of colon Medical Ce nter (procedure) [code = 833880039] Future Scheduled 1953 DXA SCAN [code = DXA [facility] 00:00:00 SCAN] [facility] Future Scheduled 1953 Screening for malignant [facility] 00:00:00 neoplasm of colon Medical Ce nter (procedure) [code = 012394820] Future Scheduled 1953 Screening for malignant [facility] 00:00:00 neoplasm of colon Medical Ce nter (procedure) [code = 860680312] Future Scheduled 1953 Sigmoidoscopy [code = [facility] 00:[facility] Sigmoidoscopy] [facility] Future Scheduled 1953 Screening for malignant [facility] 00:00:00 neoplasm of breast Medical C enter (procedure) [code = 140919553] Future Scheduled 1953 CT Colonography (combo) [facility] 00:00:00 [code = CT Colonography [facility] (combo)] Future Scheduled 1953 Screening for malignant [facility] 00:00:00 neoplasm of colon Medical Ce nter (procedure) [code = 659906262] Future Scheduled 1953 Screening for malignant [facility] 00:00:00 neoplasm of colon Medical Ce nter (procedure) [code = 727089230] Future Scheduled 1953 DXA SCAN [code = DXA [facility] 00:00:00 SCAN] [facility] Future Scheduled 1953 Screening for malignant [facility] 00:00:00 neoplasm of colon Medical Ce nter (procedure) [code = 391105714] Future Scheduled 1953 Screening for malignant [facility] 00:00:00 neoplasm of colon Medical Ce nter (procedure) [code = 408096138] Future Scheduled 1953 Sigmoidoscopy [code = [facility] 00:[facility] Sigmoidoscopy] [facility] Future Scheduled 1953 Screening for malignant [facility] 00:00:00 neoplasm of breast Medical C enter (procedure) [code = 915458516] Future Scheduled 1953 CT Colonography (combo) [facility] 00:00:00 [code = CT Colonography [facility] (combo)] Future Scheduled 1953 Screening for malignant [facility] 00:00:00 neoplasm of colon Medical Ce nter (procedure) [code = 387897793] Future Scheduled 1953 Screening for malignant [facility] 00:00:00 neoplasm of colon Medical Ce nter (procedure) [code = 558140377] Future Scheduled 1953 DXA SCAN [code = DXA [facility] 00:00:00 SCAN] [facility] Future Scheduled 1953 Screening for malignant [facility] 00:00:00 neoplasm of colon Medical Ce nter (procedure) [code = 568927351] Future Scheduled 1953 Screening for malignant [facility] 00:00:00 neoplasm of colon Medical Ce nter (procedure) [code = 757017564] Future Scheduled 1953 Sigmoidoscopy [code = [facility] 00:[facility] S[facility]oscopy] [facility] Cent[facility] Future Scheduled 1953 Screening for malignant [facility] 00:00:00 neoplasm of breast Medical C enter (procedure) [code = 833848906] Future Scheduled 1953 CT Colonography (combo) [facility] 00:00:00 [code = CT [facility] ([facility])] Future Scheduled 1953 Screening for malignant [facility] 00:00:00 neoplasm of colon Medical Ce nter (procedure) [code = 332726608] Future Scheduled 1953 Screening for malignant [facility] 00:00:00 neoplasm of colon Medical Ce nter (procedure) [code = 993350217] Future Scheduled 1953 DXA SCAN [code = DXA [facility] 00:00:00 SCAN] [facility] Future Scheduled 1953 Screening for malignant [facility] 00:00:00 neoplasm of colon Medical Ce nter (procedure) [code = 375623786] Future Scheduled 1953 Screening for malignant [facility] 00:00:00 neoplasm of colon Medical Ce nter (procedure) [code = 622237212] Future Scheduled 1953 Sigmoidoscopy [code = [facility] 00:[facility]] [facility] Start End Encounter Admission Attending Care Care Encounter Source Date/Time Date/Time Type Type Clinicians Facility Department ID 2022-09-13 Outpatient IBRAHIM, STLMLC STLC [id number] Common 13:24:02 DANIEL [id number] [facility] 2022-08-16 Outpatient IBRAHIM, STLMLC STLC [id number] Common 12:00:01 DANIEL [id number] [facility] 2022-08-15 Outpatient IBRAHIM, STLMLC STLMLC [id number] Common 15:12:01 DANIEL [id number] [facility] 2022-08-14 Outpatient Dobson, STLMLC STLC [id number] Common 08:50:01 Saurabh [id number] [facility] 2022-06-05 Inpatient R MARIIA CARDONA [facility] [id number] Univers 07:56:[address] [facility] 2021-11-20 Inpatient R REBECA HOLCOMB [facility] [id number] Univers 15:24:[address] [facility] 2021-09-21 Outpatient Dobson, STLMLC STLC [id number] Common 10:27:03 Saurabh [id number] [facility] 2023-06-20 2023-06-20 Outpatient R AAKASH KOROMA [facility] [id number] Univers 14:00:00 14:00:00 TULIO KOROMAYASIRSaad ity of [facility] 2023-02-28 2023-02-28 [facility] [id number] Univers 11:20:00 11:20:00 [place] perez o f [facility] 2022-12-20 2022-12-20 Outpatient R AAKASH KOROMA [facility] [id number] Univers 16:00:00 15:54:49 TULIO K[address]FRANCOISJACKSON ity [facility] 2022-12-20 2022-12-20 Orders Doctor JOHANN 1.2.840.114 [id number] Univers 00:00:00 00:00:00 Only Unassigned, MIKE 350.1.13.10 ity of [facility] 4.2.7.2.686 Babak as [phone] [address] 2022-12-19 2022-12-19 [facility] 1.2.840.114 [id number] Univers 00:00:00 00:00:00 [place] ARANDA 350.1.13.10 [place] [phone] Nh dicwy NAL [address] [place] [address] 2022-12-18 2022-12-18 Office [facility] 1.2.840.114 [id number] Univers 14:00:00 14:10:00 Visit [place] ARANDA 350.1.13.10 ity [place] [phone] Nh dicwy NAL [address] [place] [address] 2022-12-18 2022-12-18 Outpatient R [facility] [id number] Univers 14:00:00 14:00:00 [place] perez o f [facility] 2022-12-18 2022-12-18 [facility]phone [facility] [id number] [id number] Univers 00:00:00 00:00:00 [place] ARANDA 350.1.13.10 [place] [phone] Nh dic[address] 2022-12-06 2022-12-06 Office [facility] 1.2.840.114 [id number] Univers 09:00:00 09:00:00 Visit [place] 350.1.13.10 ity of [place] [id number] [address] 2022-12-06 2022-12-06 Outpatient R [facility] [id number] Univers 09:00:00 08:31:45 [place] ity o f [facility] 2022-12-05 2022-12-05 Telephone [facility] 1.2.169.878 [id number] Univers 00:00:00 00:00:00 [place] 350.1.13.10 it[place] of [place] [id number] [address] 2022-11-30 2022-11-30 Outpatient R [facility] [id number] Univers 13:30:00 15:31:28 [place] ity o f [facility] 2022-11-30 2022-11-30 Office [facility] 1.2.840.114 [id number] Univers 13:30:00 15:31:28 Visit [place] 350.1.13.10 it[place] [id number] [address] 2022-11-30 2022-11-30 Telephone [facility] 1.2.398.176 [id number] Univers 00:00:00 00:00:00 Qiamerjun [place] 350.1.13.10 ity of [place] [id number] Nh dicwy NAL [address] [place] [address] 2022-11-25 2022-11-25 Telephone [facility] 1.2.989.865 [id number] Univers 00:00:00 00:00:00 Qiangjun [place] 350.1.13.10 ity of [place] 4[place] [id number] Nh dic[address] 2022-11-24 2022-11-24 Orders Doctor JOHANN 1.2.840.114 [id number] Univers 00:00:00 00:00:00 Only Unassigned, MIKE 350.1.13.10 ity of [place] [facility] 4.2.7.2.686 Babak as [id number] [address] 2022-11-22 2022-11-22 Telephone [facility] 1.2.085.972 [id number] Univers 00:00:00 00:00:00 Qiangjun [place] 350.1.13.10 [facility] [place] [phone] [address] 2022-11-12 2022-11-12 [facility] 1.2.131.682 [id number] Univers 00:00:00 00:00:00 Qiangjun [place] 350.1.13.10 [facility] [place] [id number] [address] 2022-11-09 2022-11-09 Orders Doctor JOHANN 1.2.840.114 [id number] Univers 00:00:00 00:00:00 Only Unassigned, MIKE 350.1.13.10 ity of [place] [facility] 4.2.7.2.686 Babak as [id number] [address] 2022-11-08 2022-11-08 Outpatient [facility] [id number] Univers 08:00:00 08:00:00 WAYNE ity of [facility] 2022-10-24 2022-10-24 [facility] 1.2.840.114 [id number] Univers 00:00:00 00:00:00 Qiangjun [place] 350.1.13.10 [facility] [facility] [place] [id number] [address] 2022-10-19 2022-10-19 Refill [facility] 1.2.840.114 [id number] Univers 00:00:00 00:00:00 [place] ARANDA 350.1.13.10 [place]y [place] [facility] 4[place] [phone] Nh dical NAL 9 [facility] 2022-10-04 2022-10-04 Telephone [facility] 1.2.427.464 [id number] Univers 00:00:00 00:00:00 [place] ARANDA 350.1.13.10 [place] [id number] Nh dical NAL [address] [place] [address] 2022-10-04 2022-10-04 Telephone [facility] 1.2.191.729 [id number] Univers 00:00:00 00:00:00 [place] ARANDA 350.1.13.10 ity of [facility] 4[place] [id number] Nh dical NAL [address] [place] [address] 2022-10-04 2022-10-04 Orders Doctor JOHANN 1.2.840.114 [id number] Univers 00:00:00 00:00:00 Only Unassigned, MIKE 350.1.13.10 ity of [place] [facility] 4.2.7.2.686 Babak as [phone] [address] 2022-09-26 2022-09-27 Outpatient R [facility] [id number] Univers 10:00:00 13:19:48 [place] scotty o f [facility] 2022-09-26 2022-09-26 [facility] 1.2.840.114 [id number] Univers 10:00:00 10:10:00 Visit [place] ARANDA 350.1.13.10 ity of [facility] [place] [phone] Nh dical NAL 9 [facility] 2022-09-26 2022-09-26 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, Andre Lab Main [facility] 1.2.8 40.114 [id number] Univers 09:45:00 10:00:00 Visit Yolande Santacruz ROSI 350.1.13.10 it[place] [id number] [facility] 353 [facility] 2022-09-26 2022-09-26 Telephone [facility] 1.2.248.195 [id number] Univers 00:00:00 00:00:00 [place] ARANDA 350.1.13.10 ity of [place] [id number] Nh dical NAL 9 [facility] 2022-08-29 2022-08-29 Telephone [facility] 1.2.460.935 [id number] Univers 00:00:00 00:00:00 [place] AR[place]DA 350.1.13.10 ity [place] [id number] [address] 2022-08-29 2022-08-29 Telephone [facility] 1.2.682.232 [id number] Univers 00:00:00 00:00:00 [place] ARANDA 350.1.13.10 [place]y [place] [id number] [address] 2022-08-28 2022-08-28 Outpatient R [facility] [id number] Univers 15:40:00 16:40:51 [place] perez o f [facility] 2022-08-28 2022-08-28 Office [facility] 1.2.840.114 [id number] Univers 15:40:00 16:40:51 Visit [place] ARANDA 350.1.13.10 ity of [place] 4[place] [phone] Nh dic[address] 2022-08-28 2022-08-28 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, Adc Lab Main [facility] 1.2.8 40.114 [id number] Univers 13:30:00 13:45:00 Visit [place] Dan 350.1.13.10 ity of [place] 4[place] [id number] Nh dical NAL 353 [facility] 2022-08-28 2022-08-28 Office [facility] 1.2.840.114 [id number] Univers 13:00:00 13:27:01 Visit [place] ARANDA 350.1.13.10 [facility] 4[place] [id number] Nh dical NAL 059 [facility] 2022-08-23 2022-08-23 Orders Doctor JOHANN 1.2.840.114 [id number] Univers 00:00:00 00:00:00 Only Unassigned, MIKE 350.1.13.10 ity of [place] [facility] 4.2.7.2.686 Babak as [phone] [facility] [address] [place] 2022-08-22 2022-08-22 [facility]phone [facility] 1.2.394.365 [id number] Univers 00:00:00 00:00:00 [place] ARANDA 350.1.13.10 ity of [facility] 4[place] [phone] Nh dicwy NAL 059 [facility] 2022-08-01 2022-08-01 Outpatient R [facility] [id number] Univers 10:11:06 23:59:00 JOSEPH ity of [facility] 2022-08-01 2022-08-01 [facility] 1.2.840.114 [id number] Univers 10:11:06 23:59:00 Encounter Joseph ARANDA 350.1.13.10 ity of [facility] [place] [id number] [facility] [address] [place] 2022-08-01 2022-08-01 Office [facility] 1.2.840.114 [id number] Univers 15:50:00 16:00:00 Visit [place] ARANDA 350.1.13.10 ity of [facility] [place] [phone] Me dical NAL 059 [facility] 2022-08-01 2022-08-01 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, Adc Lab Main [facility] 1.2.8 40.114 [id number] Univers 11:00:00 11:15:00 Visit [place] Dan 350.1.13.10 ity of [place] [phone] Nh dical NAL 353 [facility] 2022-08-01 2022-08-01 Telephone [facility] 1.2.860.652 [id number] Univers 00:00:00 00:00:00 [place] GRAYSONJAVIER 350.1.13.10 ity of [place] [id number] Nh dical NAL 059 [facility] 2022-07-31 2022-07-31 Telephone [facility] 1.2.337.689 [id number] Univers 00:00:00 00:00:00 [place] ARANDA 350.1.13.10 ity of [place] [id number] Nh dical NAL 059 [facility] 2022-07-10 2022-07-10 Office Sy, 1.2.840.8 [id number] Univers 13:00:00 14:24:58 Visit [place] 74113.1.1 ity of 3.104.2.7 [place] .3.899103 Medica l .8 [place] 2022-07-10 2022-07-10 Outpatient R SY [facility] [id number] Univers 13:00:00 13:00:00 [place] ity o f [facility] 2022-07-10 2022-07-10 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 [place] 1.2.840.1 [id number] Univers 10:00:00 10:15:00 Visit Farnaz, Adc Lab Main 06270.1.1 ity of 3.104.2.7 [place] .3.792455 Medica l .8 [place] 2022-07-10 2022-07-10 Orders Doctor 1.2.840.4 [id number] Univers 00:00:00 00:00:00 Only Unassigned, 99896.1.1 ity of [place] 3.104.2.7 [place] .3.847591 Medica l .8 [place] 2022-07-10 2022-07-10 Telephone Sy, 1.2.840.2 [id number] Univers 00:00:00 00:00:00 [place] 52383.1.1 ity of 3.104.2.7 [place] .3.935013 Medica l .8 [place] 2022-06-25 2022-06-25 Outpatient R SY, [facility] [id number] Univers 15:40:00 16:09:43 [place] ity o f [facility] 2022-06-25 2022-06-25 Office Sy, 1.2.840.1 [id number] Univers 15:40:00 16:09:43 Visit [place] 44280.1.1 ity of 3.104.2.7 [place] .3.771910 Medica l .8 [place] 2022-06-25 2022-06-25 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 Sy, [place] 1.2.840.1 [id number] Univers 11:45:00 12:00:00 Visit Farnaz [facility] Lab Main 69746.1.1 ity of 3.104.2.7 [place] .3.164844 Medica l .8 [place] 2022-06-25 2022-06-25 Office Sy, 1.2.840.2 [id number] Univers 11:20:00 11:20:00 Visit [place] 72533.1.1 ity of 3.104.2.7 [place] .3.002578 Medica l .8 [place] 2022-06-25 2022-06-25 Telephone Sy, 1.2.840.4 [id number] Univers 00:00:00 00:00:00 Qiajuan 91207.1.1 ity of 3.104.2.7 [place] .3.727060 Medica l .8 [place] 2022-06-25 2022-06-25 Travel 1.2.840.1 1.2.878.753 [id number] Univers 00:00:00 00:00:00 96549.1.1 350.1.13.10 ity of 3.104.2.7 4.[place].3.698 [place] .3.195822 084.8 Medica l .8 Branch 2022-06-13 2022-06-13 Transition Isaak, 1.2.840.1 [id number] Univers 00:00:00 00:00:00 of Care Jeremy Ricardo 36354.1.1 it y of 3.104.2.7 [place] .3.285228 Medica l .8 Branch 2022-06-06 2022-06-12 Inpatient R MARIIA CARDONA [facility] [id number] Univers 17:19:00 12:24:00 MARIIA CARDONA ity of [facility] 2022-06-06 2022-06-12 Hospital Kirk Connell, 1.2.840.7 [id number] Univers 17:19:00 12:24:00 Encounter [facility] 75621.1.1 it y of 3.104.2.7 [place] .3.676075 Medica l .8 Branch 2022-06-06 2022-06-06 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 [place] Dan 1.2.840.1 [id number] Univers 10:15:00 10:30:00 Visit Pob, Adc Lab Main 27343.1.1 ity of [place], [place] 3.104.2.7 [place] .3.379584 Medica l .8 Branch 2022-06-06 2022-06-06 Telephone Sy 1.2.840.3 [id number] Univers 00:00:00 00:00:00 [place] 18873.1.1 ity of 3.104.2.7 [place] .3.832730 Medica l .8 Branch 2022-06-06 2022-06-06 Travel 1.2.840.1 1.2.747.069 [id number] Univers 00:00:00 00:00:00 09073.1.1 350.1.13.10 ity of 3.104.2.7 4.2.7.3.698 [place] .3.818958 084.8 Medica l .8 Branch 2022-06-05 2022-06-05 Telephone Sewani, 1.2.840.9 [id number] Univers 00:00:00 00:00:00 [place] 59806.1.1 ity of 3.104.2.7 [place] .3.895833 Medica l .8 Branch 2022-05-29 2022-05-29 Telephone Sewani, 1.2.840.7 [id number] Univers 00:00:00 00:00:00 Wayne 06494.1.1 ity of 3.104.2.7 [place] .3.654863 Medica l .8 Branch 2022-05-18 2022-05-27 [facility] Sean Graham [facility] [id number] [facility] 08:42:00 16:40:00 [facility], [facility], Benjamin Modi Kimberly Ann 2022-05-18 2022-05-27 [facility] [id number] [facility] 08:42:00 16:40:00 MEAGHAN 2022-05-18 2022-05-27 Hospital ER Sean Graham [facility] [id number] [facility] 08:42:00 16:40:00 Encounter Vinayak Cook [facility], [facility], Benjamin Modi Kimberly Ann 2022-05-19 2022-05-19 Travel [facility] [id number] [facility] 00:[facility] 00:[facility]:00 [facility] 2022-05-19 2022-05-19 Travel [facility] [id number] [facility] 00[facility]:00 [facility] 2022-05-182022-05-18 Orders [facility] [id number] 00:00:00 00:00:00 Only [facility] 2022-05-18 2022-05-18 Telephone Santos [facility] [id number] 00:00:00 00:00:00 [facility] 2022-05-18 2022-05-18 Orders [facility] [id number] 00:00:00 00:00:00 Only [facility] 2022-05-18 2022-05-18 Telephone Santos [facility] [id number] 00:00:00 00:00:00 [facility] 2022-05-10 2022-05-10 Outpatient [facility] [id number] Univers 11:40:00 12:05:03 WAYNE ity of [facility] 2022-05-10 2022-05-10 Office [facility], 1.2.840.5 [id number] Univers 11:40:00 12:05:03 Visit Wayne 35465.1.1 ity of 3.104.2.7 [place] .3.357681 Medica l .8 [place] 2022-05-10 2022-05-10 Travel 1.2.840.1 1.2.980.527 [id number] Univers 00:00:00 00:00:00 69281.1.1 350.1.13.10 ity of 3.104.2.7 4.2.7.3.698 [place] .3.945540 084.8 Medica l .8 [place] 2022-05-09 2022-05-09 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 [place] Dan 1.2.840.1 [id number] Univers 10:30:00 10:45:00 Visit Andre Osei Lab Main 80083.1.1 ity of 3.104.2.7 [place] .3.570891 Medica l .8 [place] 2022-05-09 2022-05-09 Outpatient Joan [facility] [id number] Univers 10:30:00 10:30:00 [place] perez o f [facility] 2022-05-09 2022-05-09 Orders Doctor 1.2.840.6 [id number] Univers 00:00:00 00:00:00 Only Unassigned, 51011.1.1 ity of [place] 3.104.2.7 [place] .3.827174 Medica l .8 [place] 2022-05-09 2022-05-09 Telephone Sy, 1.2.840.8 [id number] Univers 00:00:00 00:00:00 [place] 08272.1.1 ity of 3.104.2.7 [place] .3.848051 Medica l .8 [place] 2022-04-12 2022-04-12 Outpatient [facility] [id number] Univers 11:00:00 11:00:[address] [facility] 2022-04-12 2022-04-12 Outpatient Joan [facility] [id number] Univers 11:00:00 11:00:[address] [facility] 2022-04-11 2022-04-11 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 [place] Dan 1.2.840.1 [id number] Univers 09:45:00 10:00:00 Visit Pofredy, Adc Lab Main 75967.1.1 ity of 3.104.2.7 [place] .3.965801 Medica l .8 [place] 2022-04-11 2022-04-11 Outpatient R SY [facility] [id number] Univers 09:45:00 09:45:00 [place] perez o f [facility] 2022-04-11 2022-04-11 Orders Doctor 1.2.840.3 [id number] Univers 00:00:00 00:00:00 Only Unassigned, 47190.1.1 ity of [place] 3.104.2.7 [place] .3.684247 Medica l .8 [place] 2022-04-11 2022-04-11 Telephone Sy, 1.2.840.8 [id number] Univers 00:00:00 00:00:00 Qiangjun 86993.1.1 ity of 3.104.2.7 [place] .3.852019 Medica l .8 Branch 2022-03-30 2022-03-30 Refill Sy, 1.2.840.1 [id number] Univers 00:00:00 00:00:00 Qiangjun 73586.1.1 ity of 3.104.2.7 [place] .3.020866 Medica l .8 Branch 2022-03-15 2022-03-15 Telephone Sewani, 1.2.840.5 [id number] Univers 00:00:00 00:00:00 [place] 55412.1.1 ity of 3.104.2.7 [place] .3.360062 Medica l .8 Branch 2022-03-14 2022-03-14 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 Sy Catrinajuan 1.2.840.1 [id number] Univers 09:30:00 09:45:00 Visit Pob, Adc Lab Main 02036.1.1 ity of 3.104.2.7 [place] .3.449378 Medica l .8 [place] 2022-03-14 2022-03-14 Outpatient R SY, [facility] [id number] Univers 09:30:00 09:30:00 QIAMERJUN ity o f [facility] 2022-03-14 2022-03-14 Orders Doctor 1.2.840.6 [id number] Univers 00:00:00 00:00:00 Only Unassigned, 45769.1.1 ity of [place] 3.104.2.7 [place] .3.401355 Medica l .8 Branch 2022-03-14 2022-03-14 Telephone Sy, 1.2.840.1 [id number] Univers 00:00:00 00:00:00 Qiangjun 40521.1.1 ity of 3.104.2.7 [place] .3.767555 Medica l .8 Branch 2022-02-28 2022-02-28 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 1, Adc Lab [facility] 1.2.840.114 [id number] Univers 13:30:00 13:45:00 Visit [place] Dan 350.1.13.10 [facility] 4[place] [id number] [facility] [address] [place] 2022-02-28 2022-02-28 Outpatient R [facility], [facility] [id number] Univers 13:00:00 13:20:24 [place] jimenes [facility] 2022-02-28 2022-02-28 Office [facility] 1.2.840.114 [id number] Univers 13:00:00 13:20:24 Visit [place] ARANDA 350.1.13.10 ity of [place] 4.2.7.2.686 [place] [id number] Nh dical NAL [address] [place] [address] 2022-02-28 2022-02-28 Outpatient R [facility] [id number] Univers 13:00:00 13:00:00 CATRINAZAHEER perez [facility] [place] 2022-02-28 2022-02-28 Outpatient R [facility], [facility] [id number] Univers 13:00:00 13:00:00 CATRINAZAHEER perez [facility] [place] 2022-02-28 2022-02-28 Outpatient R [facility], [facility] [id number] Univers 13:00:00 13:00:00 [facility] [place] 2022-02-28 2022-02-28 Orders Doctor WILLS 1.2.840.114 [id number] Univers 00:00:00 00:00:00 Only Unassigned, MIKE 350.1.13.10 ity of [place] [facility] 4.2.7.2.686 Babak as [phone] [facility] 009 [place] 2022-02-28 2022-02-28 Telephone [facility] 1.2.364.473 [id number] Univers 00:00:00 00:00:00 [place] ARANDA 350.1.13.10 it[facility] 4.2.[place].2.[place] [phone] Nh dical NAL 059 [facility] 2022-02-14 2022-02-14 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, Adc Lab Main [facility] 1.2.8 40.114 [id number] Univers 09:45:00 10:00:00 Visit [place] Dan 350.1.13.10 ity of [place] 4.2.7.2.686 [place] [id number] Nh dical NAL 353 [facility] 2022-02-14 2022-02-14 Outpatient R [facility] [id number] Univers 09:45:00 09:45:00 [place] ity o f [facility] 2022-02-14 2022-02-14 Orders Doctor JOHANN 1.2.840.114 [id number] Univers 00:00:00 00:00:00 Only Unassigned, MIKE 350.1.13.10 ity of [place] [facility] 4.2.7.2.686 Babak as [phone] [address] 2022-02-14 2022-02-14 Telephone [facility] 1.2.826.891 [id number] Univers 00:00:00 00:00:00 Rogerzaheer [place] 350.1.13.10 ity of [place] 4.2.7.2.[place] [phone] Nh dical NAL 059 [facility] 2022-02-13 2022-02-13 [facility] 1.2.840.114 [id number] Univers 00:00:00 00:00:00 [place] 350.1.13.10 ity of [place] 4.2.7.2.686 [place] [id number] Nh dical NAL 059 [facility] 2022-01-27 2022-01-27 Telephone [facility] 1.2.209.402 [id number] Univers 00:00:00 00:00:00 [place] 350.1.13.10 ity of [place] 4.2.7.2.686 [place] [id number] Nh dical NAL 059 [facility] 2022-01-25 2022-01-25 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, Adc Lab Main [facility] 1.2.8 40.114 [id number] Univers 08:45:00 09:00:00 Visit [place] DanTON 350.1.13.10 ity of [place] 4.2.7.2.686 [place] [id number] Nh dical NAL 353 [facility] 2022-01-25 2022-01-25 Outpatient R SY, [facility] [id number] Univers 08:45:00 08:45:00 [place] ity o f [facility] 2022-01-19 2022-01-19 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, Adc Lab Main [facility] 1.2.8 40.114 [id number] Univers 12:30:00 12:45:00 Visit [place] DanTON 350.1.13.10 ity of [place] 4.2.7.2.686 [place] [phone] Nh dic[address] 2022-01-19 2022-01-19 Outpatient R SY, [facility] [id number] Univers 12:30:00 12:30:00 [place] ity o [facility] 2022-01-19 2022-01-19 [facility] 1.2.897.208 [id number] Univers 00:00:00 00:00:00 [place] 350.1.13.10 ity of [place] 4.2.7.2.686 [place] [id number] [facility] 059 [facility] 2022-01-17 2022-01-17 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, Adc Lab Main [facility] 1.2.8 40.114 [id number] Univers 08:45:00 09:00:00 Visit [place] DanTON 350.1.13.10 ity [place] 4.2.7.2.686 [place] [id number] Nh dical NAL 353 [facility] 2022-01-17 2022-01-17 Outpatient R SY, [facility] [id number] Univers 08:45:00 08:45:00 [place] ity o f [facility] 2022-01-17 2022-01-17 [facility] 1.2.991.533 [id number] Univers 00:00:00 00:00:00 Qiangjun [place] 350.1.13.10 ity of [place] 4.2.7.2.[place] [id number] Nh dical [facility] 059 [facility] 2021-12-28 2021-12-28 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 2021-12-28 2021-12-28 Telephone YANY Dan 1.2.160.103 [id number] Univers 00:00:00 00:00:00 Rogerjun PEDIATRIC 350.1.13.10 [place] of [place]2.[place].2.[place] [phone] [address] 2021-12-15 2021-12-15 [facility]phone [facility] 1.2.132.659 [id number] Univers 00:00:00 00:00:00 Catrinamerzaheer [place] 350.1.13.10 ity of [place] 4.2.7.2.686 [place] [id number] Nh dical [facility] 2021-12-15 2021-12-15 [facility]phone [facility] 1.2.526.356 [id number] Univers 00:00:00 00:00:00 Catrinamerzaheer [place] 350.1.13.10 ity of [place] 4.2.7.2.686 [place] [id number] Nh dical NAL 9 [facility] 2021-12-15 2021-12-15 [facility] 1.2.840.114 [id number] Univers 00:00:00 00:00:00 Qiamerjun [place] 350.1.13.10 ity [place] 4.2.7.2.686 [place] [id number] Nh dical NAL 059 [facility] 2021-12-14 2021-12-14 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, Adc Lab Main [facility] 1.2.8 40.114 [id number] Univers 12:30:00 12:45:00 Visit [place] Dan 350.1.13.10 ity [facility] 4.2.7.2.[place] [id number] Nh dical NAL 353 [facility] 2021-12-14 2021-12-14 Outpatient R [facility] [id number] Univers 12:30:00 12:30:00 QIANGJUN ity o f [facility] 2021-12-14 2021-12-14 Orders Doctor WILLS 1.2.840.114 [id number] Univers 00:00:00 00:00:00 Only Unassigned, MIKE 350.1.13.10 [facility] 4.2.7.2.686 Babak as [phone] [address] 2021-12-04 2021-12-04 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, Adc Lab Main [facility] 1.2.8 40.114 [id number] Univers 14:15:00 14:30:00 Visit [place] Dan 350.1.13.10 it[facility] 4.2.7.2.[place] [phone] Nh dical [address] 2021-12-04 2021-12-04 Outpatient R SY, [facility] [id number] Univers 14:15:00 14:15:00 QIAMERJUN ity o f [facility] 2021-12-04 2021-12-04 Outpatient R SY, [facility] [id number] Univers 14:15:00 14:15:00 QIANGJUN ity o f [facility] 2021-12-04 2021-12-04 Transition ALESIA Gamez 1.2.840.114 [id number] Univers 00:00:00 00:00:00 of Care Georgie SAMANIEGO 350.1.13.10 it y of [place] 4.2.7.2.686 [place] [id number] [facility] [address] [place] 2021-12-04 2021-12-04 [facility]phone [facility] 1.2.899.756 [id number] Univers 00:00:00 00:00:00 Qiajuan ARANDA 350.1.13.10 ity of [place] 4.2.7.2.686 [place] [phone] [facility] 059 [facility] 2021-11-23 2021-12-01 Inpatient R REBECA HOLCOMB [facility] 10 [id number] Univers 15:31:00 14:11:00 REBECA HOLCOMB ity of [facility] 2021-11-23 2021-12-01 [facility] SHAYAN Holcomb 1.2.077.064 [id number] Univers 15:31:00 14:11:00 Encounter Rebeca MCKEON 350.1.13.10 ity of [facility] 4.2.7.2.686 Babak as [phone] [facility] 0[address] [place] 2021-12-01 2021-12-01 Telephone [facility] 1.2.650.297 [id number] Univers 00:00:00 00:00:00 [place] ROSI 350.1.13.10 i ty of [place] 4.2.7.2.[place] [id number] [facility] 059 [facility] 2021-11-23 2021-11-23 Orders Doctor JOHANN 1.2.840.114 [id number] Univers 00:00:00 00:00:00 Only Unassigned, MIKE 350.1.13.10 ity of [place] [facility]OSPITAL 4.2.7.2.686 Babak as [phone] [facility] 00[address] [place] 2021-11-22 2021-11-22 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, Andre Lab Main [facility] 1.2.8 40.114 [id number] Univers 07:45:00 08:00:00 Visit [place] Dan 350.1.13.10 ity of [place] 4.2.7.2.686 [place] [phone] [facility] 353 [facility] 2021-11-22 2021-11-22 Outpatient R SY [facility] [id number] Univers 07:45:00 07:45:00 [place] perez o abigail [facility] 2021-11-22 2021-11-22 Outpatient R SY, [facility] [id number] Univers 07:45:00 07:45:00 [place] scotty o f [facility] 2021-11-20 2021-11-20 Telephone [facility] 1.2.089.009 [id number] Univers 00:00:00 00:00:00 [place] 350.1.13.10 ity of [place] 4.2.7.2.686 [place] [phone] Nh dical NAL 059 [facility] 2021-11-10 2021-11-10 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, Adc Lab Main [facility] 1.2.8 40.114 [id number] Univers 16:45:00 17:00:00 Visit [place] DanTON 350.1.13.10 ity of [place] 4.2.7.2.686 [place] [id number] Nh dical NAL 353 [facility] 2021-11-10 2021-11-10 Outpatient R SY, [facility] [id number] Univers 16:45:00 16:45:00 [place] perez o [facility] 2021-11-10 2021-11-10 Outpatient R SY, [facility] [id number] Univers 16:45:00 16:45:00 [place] perez o [facility] 2021-11-10 2021-11-10 Telephone [facility] 1.2.018.135 [id number] Univers 00:00:00 00:00:00 Catrinamerzaheer [place] 350.1.13.10 ity of [place] 4.2.7.2.686 [place] [id number] Nh dical NAL 059 [facility] 2021-11-07 2021-11-07 Telephone [facility] 1.2.840.114 [id number] Univers 00:00:00 00:00:00 h, Tar HEALTH 350.1.13.10 i ty of [place] 4.2.7.2.686 [place] [phone] [address] OFFICE [facility] 2021-11-06 2021-11-06 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, Adc Lab Main [facility] 1.2.8 40.114 [id number] Univers 13:15:00 13:30:00 Visit [place] Dan 350.1.13.10 ity of [place] 4.2.7.2.686 [place] [id number] Nh dical NAL 353 [facility] 2021-11-06 2021-11-06 Outpatient R SY, [facility] [id number] Univers 13:15:00 13:15:00 QIAJUAN ity o f [facility] 2021-11-06 2021-11-06 Outpatient R SY, [facility] [id number] Univers 13:15:00 13:15:00 [place] perez o f [facility] 2021-11-06 2021-11-06 [facility]phone [facility] 1.2.353.132 [id number] Univers 00:00:00 00:00:00 [place] ARANDA 350.1.13.10 ity of [place] 4.2.7.2.686 [place] [phone] Nh dic[address] 2021-11-06 2021-11-06 Telephone [facility] 1.2.325.300 [id number] Univers 00:00:00 00:00:00 Wayne HEALTH 350.1.13.10 it y of [place]2.7.2.[place] [id number] [address] 2021-11-03 2021-11-03 Outpatient R [facility] [id number] Univers 15:00:00 15:40:[address] [facility] 2021-11-03 2021-11-03 Outpatient R [facility] [id number] Univers 15:00:00 15:40:[address] [facility] 2021-11-03 2021-11-03 Office [facility] 1.2.840.114 [id number] Univers 15:00:00 15:20:00 Visit [place] 350.1.13.10 i ty [facility] 4.2.7.2.[place] [id number] Nh dical NAL 059 [facility] 2021-11-03 2021-11-03 Outpatient Joan RABAGO [facility] [id number] Univers 15:00:00 15:00:[address] [facility] 2021-11-03 2021-11-03 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, Adc Lab Main [facility] 1.2.8 40.114 [id number] Univers 14:30:00 14:45:00 Visit [place] DanJAVIER 350.1.13.10 ity of [place] 4.2.7.2.[place] [phone] Nh natasha NAL 353 [facility] 2021-11-03 2021-11-03 Outpatient [facility] [id number] Univers 11:00:00 11:00:[address] [facility] 2021-11-03 2021-11-03 Outpatient R [facility] [id number] Univers 11:00:00 11:00:00 WAYNE ity of [facility] 2021-11-03 2021-11-03 Outpatient R [facility] [id number] Univers 11:00:00 11:00:[address] [facility] 2021-11-03 2021-11-03 [facility]phone [facility] 1.2.296.013 [id number] Univers 00:00:00 00:00:00 [place] 350.1.13.10 ity of [place] 4.2.7.2.[place] [phone] Nh dical NAL 9 [facility] 2021-10-25 2021-10-25 [facility]ill [facility] 1.2.840.114 [id number] Univers 00:00:00 00:00:00 Catrinajuan [place] 350.1.13.10 ity [facility] 4.2.7.2.[place] [phone] Nh dical NAL 059 [facility] 2021-10-23 2021-10-23 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, Adc Lab Main [facility] 1.2.8 40.114 [id number] Univers 10:15:00 10:30:00 Visit [place] DanJAVIER 350.1.13.10 ity of [place] 4.2.7.2.686 [place] [phone] Nh dical NAL 353 [facility] 2021-10-23 2021-10-23 Outpatient R [facility] [id number] Univers 10:15:00 10:15:00 QIAJUAN ity o f [facility] 2021-10-23 2021-10-23 Outpatient R [facility], [facility] [id number] Univers 10:15:00 10:15:00 [place] perez o f [facility] 2021-10-23 2021-10-23 Orders Doctor JOHANN [id number] Univers 00:00:00 00:00:00 Only Unassigned, MIKE 350.1.13.10 ity of [place] [facility] 4.2.7.2.686 [place]ak as [phone] [address] 2021-10-23 2021-10-23 Refill [facility] 1.2.840.114 [id number] Univers 00:00:00 00:00:00 [place] ARANDA [id number] [place] [phone] Nh dical NAL 059 [facility] 2021-10-23 2021-10-23 Telephone [facility] [id number] [id number] Univers 00:00:00 00:00:00 [place] ARANDA [id number] [place] [phone] Nh dical NAL 059 [facility] 2021-10-18 2021-10-18 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, Adc Lab Main [facility] 1.2.8 40.114 [id number] Univers 09:30:00 09:45:00 Visit [place] Dan [id number] [id number] [id number] Nh dical NAL 353 [facility] 2021-10-18 2021-10-18 Outpatient R SY, [facility] [id number] Univers 09:30:00 09:30:00 QIAJUAN ity o [facility] 2021-10-18 2021-10-18 Outpatient R SY, [facility] [id number] Univers 09:30:00 09:30:00 QIANGJUN ity o [facility] 2021-10-18 2021-10-18 Telephone Sy, [facility] [id number] Univers 00:00:00 00:00:00 Qiangjun [place] [id number] it[place] [id number] [address] 2021-10-13 2021-10-13 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, Adc Lab Main [facility] 1.2.8 40.114 [id number] Univers 10:45:00 11:00:00 Visit [place] Dan [place] [id number] it[place] [phone] Nh dical NAL [address] [place] [address] 2021-10-13 2021-10-13 Outpatient R SY, [facility] [id number] Univers 10:45:00 10:45:00 [place] ity o [facility] 2021-10-13 2021-10-13 Outpatient R SY, [facility] [id number] Univers 10:45:00 10:45:00 QIANGJUN ity o [facility] 2021-10-13 2021-10-13 Telephone Sy, [facility] [id number] Univers 00:00:00 00:00:00 Qiangjun [place] [id number] [place] [phone] Nh dicwy NAL [address] [place] [address] 2021-09-27 2021-09-27 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, Adc Lab Main [facility] 1.2.8 40.114 [id number] Univers 10:15:00 10:30:00 Visit [place] Dan [place] [id number] [id number] [phone] Nh dical NAL 353 [facility] 2021-09-27 2021-09-27 Outpatient R [facility], [facility] [id number] Univers 10:15:00 10:15:00 QIAMERZAHEER ity o f [facility] 2021-09-27 2021-09-27 Outpatient R [facility], [facility] [id number] Univers 10:15:00 10:15:00 ROGERZAHEER ity o f [facility] 2021-09-27 2021-09-27 Telephone [facility] 1.2.251.656 [id number] Univers 00:00:00 00:00:00 [place] 350.1.13.10 ity of [place] [id number] Nh dical NAL 059 [facility] 2021-09-27 2021-09-27 [facility] 1.2.551.394 [id number] Univers 00:00:00 00:00:00 Qiamerzaheer [place] 350.1.13.10 ity of [place] [phone] Nh dical NAL 9 [facility] 2021-09-21 2021-09-21 Refill [facility] 1.2.840.114 [id number] Univers 00:00:00 00:00:00 Qiamerjun [place] 350.1.13.10 ity of [place] 4[place] [id number] Nh dical NAL 059 [facility] 2021-09-01 2021-09-01 Telephone [facility] 1.2.676.856 [id number] Univers 00:00:00 00:00:00 Qiangjun [place] 350.1.13.10 it[place] of [place] [phone] Nh dical NAL 059 [facility] 2021-08-30 2021-08-30 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, Andre Lab Main [facility] 1.2.8 40.114 [id number] Univers 09:00:00 09:15:00 Visit [place] 350.1.13.10 ity [facility] 4.[place] [id number] Nh dical NAL 353 [facility] 2021-08-30 2021-08-30 Outpatient R [facility] [id number] Univers 09:00:00 09:00:00 [place] perez o [facility] 2021-08-30 2021-08-30 Outpatient R [facility], [facility] [id number] Univers 09:00:00 09:00:00 [place] perez o [facility] 2021-08-30 2021-08-30 Orders Doctor JOHANN 1.2.840.114 [id number] Univers 00:00:00 00:00:00 Only Unassigned, MIKE 350.1.13.10 ity of [facility] 4.2.7.2.686 Babak as [phone] [address] 2021-08-30 2021-08-30 Telephone [facility] 1.2.834.112 [id number] Univers 00:00:00 00:00:00 [place] ARANDA 350.1.13.10 [place] [facility] 4.[place] [phone] Nh dical NAL 059 [facility] 2021-08-28 2021-08-28 [facility] 1.2.840.114 [id number] Univers 10:40:00 10:49:42 Visit [place] ARANDA 350.1.13.10 ity of [place] 4.2.7.2.[place] [phone] Nh dical NAL 9 [facility] 2021-08-28 2021-08-28 [facility] [id number] Univers 10:40:00 10:49:42 ROGERZAHEER ana o [facility] 2021-08-28 2021-08-28 Outpatient [facility] [id number] Univers 10:40:00 10:40:00 [place] hayes [facility] 2021-08-28 2021-08-28 Outpatient R SY [facility] [id number] Univers 10:40:00 10:40:00 [place] jimenes [facility] 2021-08-16 2021-08-16 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, Adc Lab Main [facility] 1.2.8 40.114 [id number] Univers 12:15:00 12:30:00 Visit [place] Dan 350.1.13.10 ity of [facility] 4.2.[place] [id number] Nh dical NAL 353 [facility] 2021-08-16 2021-08-16 Outpatient R [facility] [id number] Univers 12:15:00 12:15:00 [place] jimenes [facility] 2021-08-16 2021-08-16 Outpatient R [facility] [id number] Univers 12:15:00 12:15:00 [place] jimenes [facility] 2021-08-16 2021-08-16 Orders Doctor JOHANN 1..840.114 [id number] Univers 00:00:00 00:00:00 Only Unassigned, MIKE 350.1.13.10 ity of [place] [facility] 4.2.7.2.686 Babak as [phone] [address] 2021-08-16 2021-08-16 [facility]phone [facility] 1.2.302.310 [id number] Univers 00:00:00 00:00:00 [place] GRAYSONJAVIER 350.1.13.10 ity of [place] 4.2.7.2.[place] [phone] Nh dical NAL 059 Branch [facility] 2021-08-02 2021-08-02 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, Adc Lab Main [facility] 1.2.8 40.114 [id number] Univers 09:00:00 09:15:00 Visit [place] Dan 350.1.13.10 ity of [facility] 4.2.7.2.[place] [id number] Nh dical NAL 353 [facility] 2021-08-02 2021-08-02 Outpatient R SY, [facility] [id number] Univers 09:00:00 09:00:00 [place] tylerjake o f [facility] 2021-08-02 2021-08-02 Outpatient R SY, [facility] [id number] Univers 09:00:00 09:00:00 [place] perez o f [facility] 2021-08-02 2021-08-02 Orders Doctor JOHANN 1.2.840.114 [id number] Univers 00:00:00 00:00:00 Only Unassigned, MIKE 350.1.13.10 [facility] 4.2.7.2.686 Babak as [phone] [address] 2021-08-02 2021-08-02 [facility]phone [facility] 1.2.045.261 [id number] Univers 00:00:00 00:00:00 [place] ARANDA 350.1.13.10 ity of [facility] 4.2.7.2.[place] [id number] Nh dical NAL 059 [facility] 2021-07-10 2021-07-10 [facility] 1.2.840.114 [id number] Univers 00:00:00 00:00:00 [place] AR[place]DA 350.1.13.10 ity of [facility] 4.2.7.2.[place] [id number] Nh dical NAL 059 [facility] 2021-07-05 2021-07-05 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, Andre Lab Main [facility] 1.2.8 40.114 [id number] Univers 09:30:00 09:45:00 Visit Sy [place] AR[place]DA 350.1.13.10 ity of [facility] 4.2.7.2.[place] [id number] Nh dical NAL 353 [facility] 2021-07-05 2021-07-05 Outpatient R SY, [facility] [id number] Univers 09:30:00 09:30:00 [place] scotty o f [facility] 2021-07-05 2021-07-05 Outpatient R [facility] [id number] Univers 09:30:00 09:30:00 [place] scotty o f [facility] 2021-07-05 2021-07-05 Telephone Sy [facility] 1.2.702.219 [id number] Univers 00:00:00 00:00:00 Catrinamerzahere ARANDA 350.1.13.10 ity of [facility] 4.2.7.2.[place] [id number] Nh dical NAL 059 [facility] 2021-06-15 2021-06-15 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, Adc Lab Main [facility] 1.2.8 40.114 [id number] Univers 09:45:00 10:00:00 Visit Sy [place] ROSI 350.1.13.10 ity of [facility] 4.2.7.2.[place] [id number] Nh dical [facility] 353 [facility] 2021-06-15 2021-06-15 Outpatient R [facility] [id number] Univers 09:45:00 09:23:22 [place] scotty o f [facility] 2021-06-15 2021-06-15 Outpatient R [facility] [id number] Univers 09:45:00 09:23:22 [place] scotty o f [facility] 2021-06-15 2021-06-15 Orders Doctor JOHANN 1.2.840.114 [id number] Univers 00:00:00 00:00:00 Only Unassigned, MIKE 350.1.13.10 ity of [place] [facility] 4.2.7.2.686 Babak as [phone] [place] [address] [address] 2021-06-15 2021-06-15 Telephone SyYANY 1.2.540.267 [id number] Univers 00:00:00 00:00:00 [place] PEDIATRIC 350.1.13.10 [place] [phone] [facility] 059 Branch [facility] 2021-05-31 2021-05-31 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, Adc Lab Main [facility] 1.2.8 40.114 [id number] Univers 10:45:00 11:00:00 Visit Catrina Danmerzaheer [place] 350.1.13.10 ity of [place] 4.2.7.2.[place] [phone] Nh dical NAL 353 [facility] 2021-05-31 2021-05-31 Office [facility] 1.2.840.114 [id number] Univers 10:00:00 10:33:12 Visit Rogerzaheer ROSI 350.1.13.10 ity of [facility] 4.2.[place] [phone] Nh dicwy NAL 059 [facility] 2021-05-31 2021-05-31 Outpatient R SY, [facility] [id number] Univers 10:00:00 10:33:12 [place] perez o [facility] 2021-05-31 2021-05-31 Outpatient R SY [facility] [id number] Univers 10:00:00 10:00:00 [place] perez o [facility] 2021-05-31 2021-05-31 Telephone [facility] 1.2.117.085 [id number] Univers 00:00:00 00:00:00 [place] 350.1.13.10 ity of [facility] 4.2.[place] [phone] Nh natasha NAL 059 [facility] 2021-05-26 2021-05-26 Emergency X JAKE, K [facility] ERT [id number] Univers 17:30:00 20:34:00 ity of [facility] 2021-05-26 2021-05-26 Emergency Jake, K [facility] 1.2.840.114 [id number] Univers 17:30:00 20:34:00 Myah ARANDA 350.1.13.10 i ty of [place] 4.2.7.2.[place] C[place] [id number] [facility] [address] [place] 2021-05-26 2021-05-26 Outpatient R [facility] [id number] Univers 10:20:00 10:20:00 ROGERZAHEER scotty o [facility] 2021-05-262021-05-26 Outpatient R SY, [facility] [id number] Univers 10:20:00 10:20:00 [place] hayes [facility] 2021-05-10 2021-05-10 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, Andre Lab Main [facility] 1.2.8 40.114 [id number] Univers 08:15:00 08:30:00 Visit Sy, [place] 350.1.13.10 ity of [place] 4.2.7.2.[place] [id number] Nh dical NAL 353 [facility] 2021-05-10 2021-05-10 Outpatient R SY, [facility] [id number] Univers 08:15:00 08:15:00 [place] jimenes [facility] 2021-05-10 2021-05-10 Outpatient R SY, [facility] [id number] Univers 08:15:00 08:15:00 JMAAICA perez o [facility] 2021-05-10 2021-05-10 Telephone [facility] 1.2.461.377 [id number] Univers 00:00:00 00:00:00 Catrinajuan [place] 350.1.13.10 ity of [place] 4.[place].2.[place] [id number] Nh dicwy NAL [address] [place] [address] 2021-05-10 2021-05-10 Telephone [facility] 1.2.935.269 [id number] Univers 00:00:00 00:00:00 [place] 350.1.13.10 ity of [place] 4.2.7.2.[place] [id number] Nh dical NAL 9 [facility] 2021-05-09 2021-05-09 Refill [facility] 1.2.840.114 [id number] Univers 00:00:00 00:00:00 Rogerzaheer [place] 350.1.13.10 ity of [place] 4[place].2.[place] [id number] Nh dical NAL [address] [place] [address] 2021-05-04 2021-05-04 Refill [facility] 1.2.840.114 [id number] Univers 00:00:00 00:00:00 Qiajuan ARAN[place] 350.1.13.10 ity of [facility] 4.2.7.2.[place] [phone] [place] 335429 [facility] 2021-04-28 2021-04-28 Outpatient R [facility] [id number] Univers 08:40:00 09:19:[address] [facility] 2021-04-28 2021-04-28 Office [facility] 1.2.840.114 [id number] Univers 08:40:00 09:19:00 Visit Wayne ROSI 350.1.13.10 i ty of [facility] 4.2.7.2.[place] [id number] [address] 2021-04-28 2021-04-28 Outpatient R [facility] [id number] Univers 08:40:00 09:19:00 WAYNE ity of [facility] 2021-04-28 2021-04-28 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, Adc Lab Main [facility] 1.2.8 40.114 [id number] Univers 08:00:00 08:15:00 Visit [place] Dan 350.1.13.10 ity of [facility] 4.2.7.2.[place] [phone] [address] 2021-04-27 2021-04-27 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, Adc Lab Main [facility] 1.2.8 40.114 [id number] Univers 10:45:00 11:00:00 Visit [place] Dan 350.1.13.10 ity of [facility] 4.2.7.2.[place] [phone] [address] 2021-04-27 2021-04-27 Outpatient R [facility] [id number] Univers 10:45:00 10:45:00 [place] ity o f [facility] 2021-04-27 2021-04-27 Outpatient R [facility] [id number] Univers 10:45:00 10:45:00 ROGERZAHEER ity o f [facility] 2021-04-27 2021-04-27 Telephone SyYANY 1.2.561.221 [id number] Univers 00:00:00 00:00:00 [place] PEDIATRIC 350.1.13.10 [place] [phone] [facility] 059 [facility] 2021-04-25 2021-04-25 Outpatient R HIMA [facility] [id number] Univers 10:20:00 10:20:[address] [facility] 2021-04-25 2021-04-25 Outpatient R HIMA [facility] [id number] Univers 10:20:00 10:20:[address] [facility] 2021-04-12 2021-04-12 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, Adc Lab Main [facility] 1.2.8 40.114 [id number] Univers 09:30:00 09:45:00 Visit [place] 350.1.13.10 ity of [place] 4.2.7.2.[place] [phone] Nh dic[address] 2021-04-12 2021-04-12 Outpatient R [facility] [id number] Univers 09:30:00 09:30:00 [place] perez o [facility] 2021-04-12 2021-04-12 Outpatient R SY [facility] [id number] Univers 09:30:00 09:30:00 [place] scotty o [facility] 2021-04-12 2021-04-12 Orders Doctor JOHANN 1.2.840.114 [id number] Univers 00:00:00 00:00:00 Only Unassigned, MIKE 350.1.13.10 ity of [place] [facility] 4.2.7.2.686 Babak as [phone] [facility] [address] 2021-04-12 2021-04-12 Telephone Sy [facility] 1.2.720.467 [id number] Univers 00:00:00 00:00:00 [place] ARANDA 350.1.13.10 ity of [place] 4.2.7.2.[place] [id number] Me dical NAL 059 [facility] 2021-03-29 2021-03-29 Outpatient R SY, [facility] [id number] Univers 11:20:00 11:20:58 [place] perez o f [facility] 2021-03-29 2021-03-29 [facility] 1.2.840.114 [id number] Univers 11:20:00 11:20:58 Visit [place] ARANDA 350.1.13.10 ity of [place] 4.2.[place].2.[place] [id number] Nh dical NAL 059 [facility] 2021-03-28 2021-03-28 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, Adc Lab Main [facility] 1.2.8 40.114 [id number] Univers 12:13:20 12:28:20 Visit Sy [place] AR[place]DA 350.1.13.10 ity of [facility] 4.2.7.2.[place] [id number] Nh dical NAL 353 [facility] 2021-03-28 2021-03-28 Outpatient R [facility] [id number] Univers 12:15:00 12:15:00 [place] perez o [facility] 2021-03-28 2021-03-28 Outpatient R [facility], [facility] [id number] Univers 12:15:00 12:15:00 [place] perez o [facility] 2021-03-28 2021-03-28 Orders Doctor JOHANN 1.2.840.114 [id number] Univers 00:00:00 00:00:00 Only Unassigned, MIKE 350.1.13.10 ity of [place] [facility] 4.2.7.2.686 Babak as [phone] [address] 2021-03-28 2021-03-28 Telephone [facility] 1.2.687.854 [id number] Univers 00:00:00 00:00:00 [place] ARANDA 350.1.13.10 ity of [place] 4.2.7.2.[place] [id number] Nh dical NAL 059 [facility] 2021-03-28 2021-03-28 [facility] 1.2.840.114 [id number] Univers 00:00:00 00:00:00 [place] ARANDA 350.1.13.10 ity of [place] 4.2.7.2.[place] [phone] Nh dickirk NAL 059 [facility] 2021-03-20 2021-03-20 Outpatient R [facility] [id number] Univers 13:45:00 13:45:00 [place] perez o [facility] 2021-03-20 2021-03-20 Outpatient Joan [facility] [id number] Univers 13:45:00 13:45:00 [place] perez o [facility] 2021-03-20 2021-03-20 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, Adc Lab Main [facility] 1.2.8 40.114 [id number] Univers 11:58:29 12:13:29 Visit [place] Dan 350.1.13.10 ity of [place] 4.2.7.2.[place] [id number] Nh natasha BURGESS 353 [facility] 2021-03-20 2021-03-20 [facility]phone [facility] 1.2.750.849 [id number] Univers 00:00:00 00:00:00 [place] ARANDA 350.1.13.10 ity of [place] 4.2.7.2.[place] [phone] Nh natasha NAL [address] [place] [address] 2021-03-15 2021-03-15 Outpatient Joan [facility] [id number] Univers 09:15:00 09:15:[address] [facility] 2021-03-15 2021-03-15 Outpatient Joan [facility] [id number] Univers 09:15:00 09:15:[address] [facility] 2021-03-15 2021-03-15 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, Adc Lab Main [facility] 1.2.8 40.114 [id number] Univers 08:14:37 08:29:37 Visit Jose Villa ROSI 350.1.13. 10 ity of [facility] 4.2.7.2.[place] [phone] Nh dical NAL 353 [facility] 2021-03-15 2021-03-15 Orders Doctor JOHANN 1.2.840.114 [id number] Univers 00:00:00 00:00:00 Only Unassigned, MIKE 350.1.13.10 ity [facility] 4.2.7.2.686 Babak as [id number] [facility] [address] [place] 2021-03-15 2021-03-15 [facility] 1.2.228.236 [id number] Univers 00:00:00 00:00:00 [place] ARANDA 350.1.13.10 ity of [place].2.[place] [id number] Nh dical NAL 059 [facility] 2021-03-07 2021-03-07 Transition ALESIA Gamez 1.2.840.114 [id number] Univers 00:00:00 00:00:00 of Care Georgie SAMANIEGO 350.1.13.10 it y of [place].2.[place] [id number] [facility] [address] [place] 2021-03-01 2021-03-06 Inpatient X FABIOLA [facility] BERENICE [id number] Univers 11:31:00 15:17:[address] [facility] 2021-03-01 2021-03-06 [facility] Jamie Deng [facility] 1.2.840.1 14 [id number] Univers 11:31:00 15:17:00 Encounter Caleb Rodrigues 350.1.13.10 ity of [place] 4[place]2.7.2.[place] [id number] [facility] [address] [place] 2021-03-01 2021-03-01 Outpatient X FABIOLA [facility] BERENICE [id number] Univers 11:31:00 11:31:[address] [facility] 2021-02-27 2021-02-27 Outpatient R SY, [facility] [id number] Univers 11:20:00 11:44:55 [place] scotty o f [facility] 2021-02-27 2021-02-27 Outpatient R SY, [facility] [id number] Univers 11:20:00 11:44:55 [place] scotty o f [facility] 2021-02-27 2021-02-27 Outpatient R SY, [facility] [id number] Univers 11:20:00 11:44:55 [place] scotty o [facility] 2021-02-27 2021-02-27 Outpatient R SY, [facility] [id number] Univers 11:20:00 11:44:55 [place] perez o [facility] 2021-02-27 2021-02-27 Office Sy, [facility] 1.2.840.114 [id number] Univers 10:54:32 11:44:55 Visit [place] ROSI 350.1.13.10 ity [place] [facility] 4.2.7.2.[place] [id number] Nh dical NAL 059 [facility] 2021-02-27 2021-02-27 Outpatient R SY, [facility] [id number] Univers 10:30:00 10:30:00 [place] jimenes [facility] 2021-02-27 2021-02-27 Outpatient R SY, [facility] [id number] Univers 10:30:00 10:30:00 [place] jimenes [facility] 2021-02-27 2021-02-27 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, Andre Lab Main [facility] 1.2.8 40.114 [id number] Univers 09:52:58 10:07:58 Visit [place] Dan ROSI 350.1.13.10 ity of [place] [phone] Nh dical NAL 353 [facility] 2021-02-27 2021-02-27 Orders Doctor WILLS 1.2.840.114 [id number] Univers 00:00:00 00:00:00 Only Unassigned, MIKE 350.1.13.10 ity of [place] [facility] 4.2.7.2.686 Babak as [id number] [address] 2021-02-27 2021-02-27 Telephone [facility] 1.2.040.265 [id number] Univers 00:00:00 00:00:00 Catrinamerzaheer ROSI 350.1.13.10 it[place] [phone] Nh dical NAL 059 [facility] 2021-02-24 2021-02-24 Outpatient R SY, [facility] [id number] Univers 10:45:00 10:45:00 ROGERZAHEER itjake o f [facility] 2021-02-24 2021-02-24 Outpatient R SY, [facility] [id number] Univers 10:45:00 10:45:00 ROGERZAHEER ana o f [facility] 2021-02-24 2021-02-24 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, [facility] Lab Main [facility] 1.2.8 40.114 [id number] Univers 09:17:46 09:32:46 Visit Sy [place] ARANDA 350.1.13.10 ity of [facility] 4.2.7.2.[place] [phone] Nh dickirk [facility] 353 [facility] 2021-02-24 2021-02-24 Telephone [facility] 1.2.024.766 [id number] Univers 00:00:00 00:00:00 [place] ARANDA 350.1.13.10 it[place] of [place] [id number] Nh dical NAL [address] [place] [address] 2021-02-24 2021-02-24 Telephone [facility] 1.2.550.548 [id number] Univers 00:00:00 00:00:00 [place] 350.1.13.10 ity of [place] 4[place]2.7.2.[place] [phone] Nh dical NAL 059 [facility] 2021-02-24 2021-02-24 Telephone [facility] [id number] Univers 00:00:00 00:00:00 [place] GRAYSONTON [id number] [facility] 4[place] [phone] Nh dical NAL 059 [facility] 2021-02-15 2021-02-15 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, Adc Lab Main [facility] 1.2.8 40.114 [id number] Univers 09:47:39 10:02:39 Visit [place] Dan 350.1.13.10 it[place] of [place] [phone] [facility] 353 [facility] 2021-02-15 2021-02-15 [facility] [id number] Univers 09:45:00 09:45:00 CATRINAJUAN tylerjake o [facility] 2021-02-15 2021-02-15 Outpatient R SY [facility] [id number] Univers 09:45:00 09:45:00 [place] perez o [facility] 2021-02-15 2021-02-15 Orders Doctor JOHANN [id number] [id number] Univers 00:00:00 00:00:00 Only Unassigned, MIKE 350.1.13.10 ity of [place] [facility] 4.2.7.2.686 Babak as [phone] [facility] [address] [place] 2021-02-15 2021-02-15 Telephone Sy [facility] 1.2.139.753 [id number] Univers 00:00:00 00:00:00 [place] ARANDA 350.1.13.10 [facility] 4[place] [phone] Nh dical NAL 059 [facility] 2021-02-10 2021-02-10 Transition ALESIA Gamez 1.2.840.114 [id number] Univers 00:00:00 00:00:00 of Care Georgie SAMANIEGO 350.1.13.10 [place] [phone] [facility] [address] 2021-02-04 2021-02-09 Inpatient X [facility] [id number] Univers 20:57:00 13:26:00 JENNIFER ity of [facility] 2021-02-04 2021-02-09 Hospital Jamie Deng [facility] 1.2.840.1 14 [id number] Univers 20:57:00 13:26:00 Encounter Wilber Flowers 350.1.13.10 ity of [place] 4.2.7.2.686 [facility] [phone] [facility] [address] [place] 2021-01-02 2021-01-02 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, Adc Lab Main [facility] 1.2.8 40.114 [id number] Univers 11:35:12 11:50:12 Visit [place] Dan 350.1.13.10 it[place] of [place] [phone] Nh dical nal 353 [facility] 2021-01-02 2021-01-02 Outpatient R [facility] [id number] Univers 11:45:00 11:45:00 [facility] OHIO[facility]NA tyler o [facility] 2021-01-02 2021-01-02 Outpatient R [facility] [id number] Univers 11:45:00 11:45:00 [facility] tylerDel Sol [facility] 2021-01-02 2021-01-02 Orders Doctor JOHANN 1.2.840.114 [id number] Univers 00:00:00 00:00:00 Only Unassigned, MIKE 350.1.13.10 ity of [place] [facility] 4.2.7.2.686 Babak as [phone] [facility] 009 [place] 2021-01-02 2021-01-02 [facility] [id number] Univers 00:00:00 00:00:00 [place] Ar[place] 350.1.13.10 [place] [phone] Nh dical nal 059 [facility] 2021-01-02 2021-01-02 [facility] 1.2.840.114 [id number] Univers 00:00:00 00:00:00 [place] Aranda 350.1.13.10 [place] [phone] Nh dical nal 059 [facility] 2020-12-07 2020-12-07 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, Adc Lab Main [facility] 1.2.8 40.114 [id number] Univers 08:05:37 08:20:37 Visit [place] Dan 350.1.13.10 [place] [phone] Nh dical nal 353 [facility] 2020-12-07 2020-12-07 Outpatient R SY, [facility] [id number] Univers 08:00:00 08:00:00 [place] scotty o [facility] 2020-12-07 2020-12-07 Outpatient R SY, [facility] [id number] Univers 08:00:00 08:00:00 [place] perez o [facility] 2020-12-07 2020-12-07 Telephone Sy, [facility] [id number] Univers 00:00:00 00:00:00 [place] Ar[place] 350.1.13.10 [place] [phone] Nh dical nal 059 [facility] 2020-11-23 2020-11-23 Outpatient R SY, [facility] [id number] Univers 13:37:45 23:59:00 [place] scotty o f [facility] 2020-11-23 2020-11-23 Outpatient R SY, [facility] [id number] Univers 13:37:45 23:59:00 CATRINANGZAHEER ity o f [facility] 2020-11-14 2020-11-14 Outpatient R SY, [facility] [id number] Univers 13:40:00 13:40:00 [place] ity o f [facility] 2020-10-12 2020-10-12 Outpatient R SY, [facility] [id number] Univers 08:00:00 08:00:00 QIANGZAHEER ity o [facility] 2020-09-27 2020-09-27 Outpatient R SY, [facility] [id number] Univers 13:00:00 13:00:00 [place] jimenes [facility] 2020-09-22 2020-09-22 Outpatient R SY, [facility] [id number] Univers 09:30:00 09:30:00 [place] jimenes [facility] 2020-09-07 2020-09-07 Outpatient R SY, [facility] [id number] Univers 08:45:00 08:45:00 [place] jimenes [facility] 2020-08-19 2020-08-19 Outpatient R SY, [facility] [id number] Univers 08:45:00 08:45:00 [place] jimenes [facility] 2020-08-15 2020-08-15 Outpatient R SY, [facility] [id number] Univers 10:45:00 10:45:00 [place] jimenes [facility] 2020-08-08 2020-08-08 Outpatient R SY, [facility] [id number] Univers 11:45:00 11:45:00 [facility] 2020-08-08 2020-08-08 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 Osei [facility] 1.2.840.114 [id number] 11:14:44 11:29:44 Visit Lab Main [place]i 350.1.13.10 [place] 4.2.7.2.686 Lonnie [phone] crow 353 [facility] 2020-08-08 2020-08-08 Orders Doctor JOHANN 1.2.840.114 [id number] 00:00:00 00:00:00 Only Unassigned, MIKE 350.1.13.10 [place] [facility] 4.2.7.2.686 [phone] [facility] 2020-08-08 2020-08-08 Telephone Sy, [facility] [id number] 00:00:00 00:00:00 [place] 350.1.13.10 [place] 4.2.7.2.686 Professdeacon [phone] nal 059 [facility] 2020-07-252020-07-25 Telephone [facility] [id number] 00:00:00 00:00:00 [place] 350.1.13.10 [place] 4.2.7.2.686 Professio [phone] [facility] 059 [facility] 2020-07-20 2020-07-20 Outpatient R [facility] [id number] Univers 11:45:00 11:45:00 [place] scotty o f [facility] 2020-07-20 2020-07-20 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, [facility] 1.2.840.114 [id number] 10:37:03 10:52:03 Visit Lab Main [place] 350.1.13.10 [place] 4.2.7.2.686 Professio [phone] [address] 2020-07-20 2020-07-20 Orders Doctor JOHANN 1.2.840.114 [id number] 00:00:00 00:00:00 Only Unassigned, MIKE 350.1.13.10 [place] [facility] 4.2.7.2.686 [phone] [facility] 2020-07-20 2020-07-20 Telephone [facility] [id number] 00:00:00 00:00:00 [place] 350.1.13.10 [place] 4.2.7.2.686 Professio [phone] [address] 2020-07-13 2020-07-13 Outpatient R [facility] [id number] Univers 10:15:00 10:15:00 [place] perez o f [facility] 2020-07-13 2020-07-13 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, [facility] 1.2.840.114 [id number] 09:23:20 09:38:20 Visit Lab Main [place] 350.1.13.10 [place] 4.2.7.2.686 Professio [phone] [address] 2020-07-13 2020-07-13 Telephone [facility] 1.2.066.142 [id number] 00:00:00 00:00:00 [place] 350.1.13.10 [place] 4.2.7.2.686 Professio [phone] [facility] [address] [place] [address] 2020-06-19 2020-06-19 Telephone [facility] [id number] 00:00:00 00:00:00 [place] 350.1.13.10 [place] 4.2.7.2.686 Professio [phone] [address] 2020-06-17 2020-06-17 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, [facility] 1.2.840.114 [id number] 09:22:55 09:37:55 Visit Lab Main [place] 350.1.13.10 [place] 4.2.7.2.686 Professio [phone] [address] 2020-06-17 2020-06-17 [facility] [id number] Univers 09:30:00 09:30:00 CATRINAJUAN jimenes [facility] 2020-06-08 2020-06-08 Telephone [facility] [id number] 00:00:00 00:00:00 [place] 350.1.13.10 [place] 4.2.7.2.686 Professio [phone] [address] 2020-06-07 2020-06-07 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[address]840.114 [id number] 08:57:47 09:12:47 Visit Lab Main [place] 350.1.13.10 [place] 4.2.7.2.686 Professio [phone] [address] 2020-06-07 2020-06-07 Outpatient R SY, [facility] [id number] Univers 09:00:00 09:00:00 CATRINAJUAN perez [facility] 2020-05-23 2020-05-23 Outpatient R SY, [facility] [id number] Univers 09:15:00 09:15:00 ROGERZAHEER jimenes [facility] 2020-05-16 2020-05-16 Outpatient R SY, [facility] [id number] [facility] 11:30:00 11:30:00 [place] perez o f [facility] 2020-05-16 2020-05-16 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 [address] 2020-05-11 2020-05-11 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 2020-05-11 2020-05-11 Telephone [facility] [id number] 00:00:00 00:00:00 [place] 350.1.13.10 [place] 4.2.7.2.686 Professio [phone] [address] 2020-05-11 2020-05-11 Telephone [facility] 1.2.813.210 [id number] 00:00:00 00:00:00 [place] Ar[place] 350.1.13.10 [place] 4.2.7.2.686 Professio [phone] [facility] 059 [facility] 2020-05-04 2020-05-04 [facility] [id number] 00:00:00 00:00:00 [place] Ar[place] 350.1.13.10 [place] 4.2.7.2.686 Professio [phone] [facility] 059 [facility] 2020-05-03 2020-05-03 Outpatient R [facility] [id number] [facility] 11:30:00 11:30:00 [place] scottjake o [facility] 2020-05-03 2020-05-03 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 [facility] 1.2.840.114 [id number] 10:05:00 10:20:00 Visit Lab Main [place] 350.1.13.10 [place] 4.2.7.2.686 Professio [phone] [address] 2020-05-03 2020-05-03 Orders Doctor JOHANN 1.2.840.114 [id number] 00:00:00 00:00:00 Only Unassigned, MIKE 350.1.13.10 [place] [facility] 4.2.7.2.686 [phone] [facility] 2020-04-27 2020-04-27 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 [facility] 1.2.840.114 [id number] 08:24:03 08:39:03 Visit Lab Main [place] 350.1.13.10 [place] 4.2.7.2.686 Professio [phone] [address] 2020-04-27 2020-04-27 Outpatient R [facility] [id number] [facility] 08:30:00 08:30:00 [place] perez o [facility] 2020-04-27 2020-04-27 Telephone [facility] [id number] 00:00:00 00:00:00 [place] 350.1.13.10 [place] 4.2.7.2.686 Professio [phone] [facility] [address] [place] [address] 2020-04-20 2020-04-20 [facility] 1.2.840.114 [id number] 00:00:00 00:00:00 [place] Ar[place] 350.1.13.10 [place] 4.2.7.2.686 Professio [phone] [facility]9 [facility] 2020-04-01 2020-04-01 Outpatient R IZQUIERDO, [facility] [id number] Univers 10:15:00 10:15:[address] [facility] 2020-03-29 2020-03-29 Office Sy, [facility] 1.2.840.114 [id number] 14:32:40 15:25:41 Visit [place] 350.1.13.10 [place] 4.2.7.2.686 Profanamariaio [phone] [address] 2020-03-29 2020-03-29 Outpatient R SY, [facility] [id number] Univers 14:40:00 14:40:00 [place] ity o [facility] 2020-03-22 2020-03-22 Outpatient R SY, [facility] [id number] Univers 15:30:00 15:30:00 [place] scotty o [facility] 2020-03-15 2020-03-15 Outpatient R SY, [facility] [id number] Univers 11:15:00 11:15:00 [place] ity o [facility] 2020-02-24 2020-02-24 Outpatient R SY, [facility] [id number] Univers 08:40:00 08:40:00 [place] ity o [facility] 2020-02-17 2020-02-17 Outpatient R SY, [facility] [id number] Univers 09:15:00 09:15:00 [place] ity o f [facility] 2020-01-11 2020-01-11 Outpatient R SY, [facility] [id number] Univers 12:45:00 12:45:00 QIANGJUN ity o f [facility] 2019-12-17 2019-12-17 Outpatient R SY, [facility] [id number] Univers 11:00:00 11:00:00 QIANGJUN ity o f [facility] 2019-11-26 2019-11-26 Outpatient R SY, [facility] [id number] Univers 12:45:00 12:45:00 [place] scotty o [facility] 2019-10-30 2019-10-30 Outpatient R RADIOLOGY [facility] [id number] Univers 00:00:00 00:00:00 [facility] 2019-10-20 2019-10-20 Outpatient R ALICJA MCDERMOTT [facility] [id number] Univers 09:30:00 09:30:00 [facility] 2019-09-30 2019-09-30 Outpatient R SY, [facility] [id number] Univers 08:30:00 08:30:00 [facility] 2019-09-08 2019-09-08 Outpatient R SY, [facility] [id number] Univers 15:20:00 15:20:00 [place] scotty o [facility] 2019-09-03 2019-09-03 Outpatient R SY, [facility] [id number] Univers 09:00:00 09:00:00 [place] perez o [facility] 2019-07-24 2019-07-24 Outpatient R SY, [facility] [id number] Univers 11:45:00 11:45:00 CATRINAZAHEER perez o [facility] 2019-06-22 2019-06-22 Outpatient R SY, [facility] [id number] Univers 13:30:00 13:30:00 CATRINAZAHEER perez [facility] Results Test Description Test Time Test Comments [...] indications. Lab Interpretation (test code Abnormal = 89318-7) [facility] / [id number] 15:08:40 Test Item Value Reference Range Interpretation Comments PROTIME PATIENT (test 24.8 See_Comment H [Auto mated message] code = 5964-2) The system [employer] generated this result transmitted ref erence range: 12.0 - 1 4.7 Seconds. The reference range was not used to int erpret this result as normal/abnormal . INR (test code = 6301-6) 2.3 [place] INR <1.1; Warfarin Therap eutic range 2.0 to 3. 0 or 2.5 to 3.5, dep ending upon the indica tions. Lab Interpretation (test Abnormal code = 88325-9) [facility] / [id number] 15:08:40 Test Item Value Reference Range Interpretation Comments PROTIME PATIENT (test 24.8 See_Comment H [Auto mated message] code = 5964-2) The system [employer] generated this result transmitted ref erence range: 12.0 - 1 4.7 Seconds. The reference range was not used to int erpret this result as normal/abnormal . INR (test code = 6301-6) 2.3 [place] INR <1.1; Warfarin Therap eutic range 2.0 to 3. 0 or 2.5 to 3.5, dep ending upon the indica tions. Lab Interpretation (test Abnormal code = 37415-6) [facility] / [id number] 18:32:10 Test Item Value Reference Range Interpretation Comments PROTIME PATIENT (test 24.4 See_Comment H [Auto mated message] code = 5964-2) The system [employer] generated this result transmitted ref erence range: 12.0 - 1 4.7 Seconds. The reference range was not used to int erpret this result as normal/abnormal . INR (test code = 6301-6) 2.2 [place] INR <1.1; Warfarin Therap eutic range 2.0 to 3. 0 or 2.5 to 3.5, dep ending upon the indica tions. Lab Interpretation (test Abnormal code = 01744-2) [facility] (MARGA)2022-06-11 22:45:29 Test Item Value Reference Range Interpretation Comments Height (test code = 63 in 3066134636) Weight (test code = 102 lbs 1936424074) Systolic BP (test 123 mmHg code = 5768515476) Diastolic BP (test 64 mmHg code = 0034746540) Heart Rate (test code 61 bpm = 9895468344) LVOT peak amrita (test 114.0 cm/s code = 7319435346) LVOT mn grad (test 3.0 mmHg code = 0715694710) Aortic valve mean 209.0 cm/s velocity (test code = 1147863767) Ao peak amrita (test 333.0 cm/s code = 6325758039) Ao VTI (test code = 71.7 cm 3492252462) AV LVOT peak gradient 5.2 mmHg (test code = 4599623867) LVOT peak VTI (test 29.0 cm code = 4199250111) AV Doppler amrita index 0.34 ratio VTI (test code = 4323916305) LV V1 mean (test code 82.60 cm/s = 9548975734) Ao max PG (test code 44.40 mm[Hg] = 7636987262) AV peak gradient 44.4 mmHg (test code = 4657082275) AV mean gradient 21.0 mmHg (test code = 2298207147) Radiology Study observation (narrative) (test code = 01642-1) ROBERT (test code = ROBERT) ?Aortic?Valve: Mechanical [...] captured. The probe was inserted by the river tester. Probe in 0930. Probe out 0940. Moderate sedation was given. 4% Lidocaine was used for local oropharyngeal anesthesia. 1 mg of midazolam and 50 mcg of Fentanyl were administered during the study. There were no complications during the procedure. Based on abnormal findings of 2D echocardiogram, 3D was performed on an acquisition scanner for further assessment of the aortic valve. , RN [facility] (NA, K, CL, CO2, GLUCOSE, BUN, CREATININE, CA)2022-06-11 09:30:25 Test Item Value Reference Range Interpretation Comments NA (test code = 137 mmol/L 135-145 4655718460) K (test code = 4.3 mmol/L 3.5-5.0 3333823717) CL (test code = 104 mmol/L 98-108 1819285933) CO2 TOTAL (test code = 30 mmol/L 23-31 0724560599) AGAP (test code = 3 2-16 7825187703) BUN (test code = 19 mg/dL 7-23 0075782546) GLUCOSE (test code = 102 mg/dL 70-110 7889650331) CREATININE (test code = 0.93 mg/dL 0.50-1.04 1307821288) CALCIUM (test code = 8.5 mg/dL 8.6-10.6 L 2065262959) eGFR (test code = 59.8 mL/min/1.73m2 0028052515) ROBERT (test code = ROBERT) Association of [...] tests). Lab Interpretation Abnormal (test code = 43792-5) [facility]2023-02-27 09:30:25 Test Item Value Reference Range Interpretation Comments MAGNESIUM (test code = 9966774150) 2.1 mg/dL 1.7-2.4 Lab Interpretation (test code = Normal 54898-2) [facility] / [id number] 09:18:08 Test Item Value Reference Range Interpretation Comments PROTIME PATIENT (test 19.8 See_Comment H [Auto mated message] code = 5964-2) The system [employer] generated this result transmitted ref erence range: 10.1 - 1 2.6 Seconds. The reference range was not used to int erpret this result as normal/abnormal . INR (test code = 6301-6) 1.8 [place] INR <1.1; Warfarin Therap eutic range 2.0 to 3. 0 or 2.5 to 3.5, dep ending upon the indica tions. Lab Interpretation (test Abnormal code = 03877-3) [facility] HospitalaPTT2023-02-27 09:18:08 Test Item Value Reference Range Interpretation Comments APTT Patient (test code 89 See_Comment H [Au tomated message] = 9773-2) The system [employer] generated this result transmitted ref erence range: 26 - 36 Seconds. The reference range was not used to int erpret this result as normal/abnormal . Lab Interpretation (test Abnormal code = 21176-5) [facility]2023-02-26 08:57:55 Test Item Value Reference Range Interpretation Comments MAGNESIUM (test code = 2410931195) 1.8 mg/dL 1.7-2.4 Lab Interpretation (test code = Normal 56970-0) [facility] (NA, K, CL, CO2, GLUCOSE, BUN, CREATININE, CA)2022-06-10 08:57:55 Test Item Value Reference Range Interpretation Comments NA (test code = 137 mmol/L 135-145 3804293721) K (test code = 4.0 mmol/L 3.5-5.0 9835117280) CL (test code = 100 mmol/L 98-108 1686005852) CO2 TOTAL (test code = 32 mmol/L 23-31 H 8945780793) AGAP (test code = 5 2-16 1209757466) BUN (test code = 24 mg/dL 7-23 H 6008275029) GLUCOSE (test code = 116 mg/dL 70-110 H 7271396949) CREATININE (test code = 1.00 mg/dL 0.50-1.04 2456264734) CALCIUM (test code = 9.1 mg/dL 8.6-10.6 5415941273) eGFR (test code = 55.0 mL/min/1.73m2 7144023219) ROBERT (test code = ROBERT) Association of [...] tests). Lab Interpretation Abnormal (test code = 86403-1) [facility] Time / [id number] 08:46:38 Test Item Value Reference Range Interpretation Comments PROTIME PATIENT (test 17.4 See_Comment H [Auto mated message] code = 5964-2) The system [employer] generated this result transmitted ref erence range: 10.1 - 1 2.6 Seconds. The reference range was not used to int erpret this result as normal/abnormal . INR (test code = 6301-6) 1.6 [place] INR <1.1; Warfarin Therap eutic range 2.0 to 3. 0 or 2.5 to 3.5, dep ending upon the indica tions. Lab Interpretation (test Abnormal code = 43757-7) [facility]2023-02-26 08:46:38 Test Item Value Reference Range Interpretation Comments APTT Patient (test code 85 See_Comment H [Au tomated message] = 3173-2) The system [employer] generated this result transmitted ref erence range: 26 - 36 Seconds. The reference range was not used to int erpret this result as normal/abnormal . Lab Interpretation (test Abnormal code = 58707-3) [facility] WITH [id number] 08:39:15 Test Item Value Reference Range Interpretation [...] (test code = 58.1 fL 39.0-49.9 H 20913-4) RDW-CV (test code = 16.1 % 12.0-15.5 H 788-0) PLT (test code = 197 See_Comment [Automated 777-3) message] The sy stem which generated this result transmitted reference range : 166 - 358 10*3/ ?L. The reference r tali was not used to interpret this result as normal/abnormal . MPV (test code = 10.2 fL 9.5-12.9 73902-9) NRBC/100 WBC (test 0.0 See_Comment [Automat ed code = 5790098670) message] The system which generated this result transmitted reference range : 0.0 - 10.0 /100 WBCs. The refer ence range was not u sed to interpret th is result as normal/abnormal . NRBC x10^3 (test code See_Comment [Auto mated = 5120266079) message] The s ystem which generated this result transmitted reference range : 10*3/?L. The reference range was not used to interpret this result as normal/abnormal . GRAN MAT (NEUT) % 58.4 % (test code = 770-8) IMM GRAN % (test code 0.20 % = 8689644965) LYMPH % (test code = 24.2 % 736-9) MONO % (test code = 10.9 % 5905-5) EOS % (test code = 5.5 % 713-8) BASO % (test code = 0.8 % 706-2) GRAN MAT x10^3(ANC) 2.77 10*3/uL 1.88-7.09 (test code = 4846154280) IMM GRAN x10^3 (test 0.00-0.06 code = 8385947150) LYMPH x10^3 (test code 1.15 10*3/uL 1.32-3.29 L = 731-0) MONO x10^3 (test code 0.52 10*3/uL 0.33-0.92 = 742-7) EOS x10^3 (test code = 0.26 10*3/uL 0.03-0.39 711-2) BASO x10^3 (test code 0.04 10*3/uL 0.01-0.07 = 704-7) Lab Interpretation Abnormal (test code = 10288-4) [facility]2023-02-25 10:39:27 Test Item Value Reference Range Interpretation Comments MAGNESIUM (test code = 5454945227) 1.6 mg/dL 1.7-2.4 L Lab Interpretation (test code = Abnormal 62367-0) [facility] METABOLIC PANEL (NA, K, CL, CO2, GLUCOSE, BUN, CREATININE, CA)2022-06-09 10:39:27 Test Item Value Reference Range Interpretation Comments NA (test code = 139 mmol/L 135-145 4332925772) K (test code = 4.1 mmol/L 3.5-5.0 3043711583) CL (test code = 96 mmol/L 98-108 L 8045375512) CO2 TOTAL (test code = 36 mmol/L 23-31 H 6641529867) AGAP (test code = 7 2-16 9791595829) BUN (test code = 27 mg/dL 7-23 H 5352693958) GLUCOSE (test code = 116 mg/dL 70-110 H 2672081872) CREATININE (test code = 1.21 mg/dL 0.50-1.04 H 8586684511) CALCIUM (test code = 9.3 mg/dL 8.6-10.6 0093069517) eGFR (test code = 44.1 mL/min/1.73m2 9873114639) ROBERT (test code = ROBERT) Association of [...] tests). Lab Interpretation Abnormal (test code = 56655-0) [facility] / [id number] 10:26:27 Test Item Value Reference Range Interpretation Comments PROTIME PATIENT (test 18.7 See_Comment H [Auto mated message] code = 5964-2) The system [employer] generated this result transmitted ref erence range: 10.1 - 1 2.6 Seconds. The reference range was not used to int erpret this result as normal/abnormal . INR (test code = 6301-6) 1.7 Nor mal INR <1.1; Warfarin Therap eutic range 2.0 to 3. 0 or 2.5 to 3.5, dep ending upon the indica tions. Lab Interpretation (test Abnormal code = 31272-9) [facility] WITH [id number] 10:16:07 Test Item Value Reference Range Interpretation Comments WBC (test code = 7.65 See_Comment [Automated 2790-2) message] The sy stem which generated this [...] (test code = 58.8 fL 39.0-49.9 H 76612-6) RDW-CV (test code = 16.3 % 12.0-15.5 H 788-0) PLT (test code = 244 See_Comment [Automated 777-3) message] The sy stem which generated this result transmitted reference range : 166 - 358 10*3/ ?L. The reference r tali was not used to interpret this result as normal/abnormal . MPV (test code = 10.1 fL 9.5-12.9 14739-4) NRBC/100 WBC (test 0.0 See_Comment [Automat ed code = 6009187263) message] The system which generated this result transmitted reference range : 0.0 - 10.0 /100 WBCs. The refer ence range was not u sed to interpret th is result as normal/abnormal . NRBC x10^3 (test code See_Comment [Auto mated = 4910626437) message] The s ystem which generated this result transmitted reference range : 10*3/?L. The reference range was not used to interpret this result as normal/abnormal . GRAN MAT (NEUT) % 75.8 % (test code = 770-8) IMM GRAN % (test code 0.30 % = 7949356790) LYMPH % (test code = 12.5 % 736-9) MONO % (test code = 8.5 % 5905-5) EOS % (test code = 2.0 % 713-8) BASO % (test code = 0.9 % 706-2) GRAN MAT x10^3(ANC) 5.80 10*3/uL 1.88-7.09 (test code = 9872354927) IMM GRAN x10^3 (test 0.00-0.06 code = 3039997053) LYMPH x10^3 (test code 0.96 10*3/uL 1.32-3.29 L = 731-0) MONO x10^3 (test code 0.65 10*3/uL 0.33-0.92 = 742-7) EOS x10^3 (test code = 0.15 10*3/uL 0.03-0.39 711-2) BASO x10^3 (test code 0.07 10*3/uL 0.01-0.07 = 704-7) Lab Interpretation Abnormal (test code = 84467-0) [facility] 21:12:16 Test Item Value Reference Range Interpretation Comments Height (test code = 63 in 4039147156) Weight (test code = 101 lbs 1700401199) Systolic BP (test code 127 mmHg = 4846158259) Diastolic BP (test code 43 mmHg = 8594630012) Heart Rate (test code = 50 bpm 7460789604) BSA (test code = 1.45 m2 8229424868) LVOT diameter (test 1.62 cm code = 5942622212) LVOT area (test code = 2.05 cm2 1030165228) Ao root diam (test code 2.34 cm = 4467186002) Aortic root (test code 2.34 cm = 5038968550) Ao root annulus (test 2.34 cm code = 0007484658) LA size (test code = 4.9 cm 4361981348) TR Peak Amrita (test code 209.0 cm/s = 1893286853) Triscuspid Valve 17.5 mmHg Regurgitation Peak Gradient (test code = 8701660640) PV REGURGITATION PEAK 8.9 mmHg GRADIENT (test code = 7829308873) PI dec slope (test code 81.30 cm/s2 = 0838054875) E wave decelartion time 0.26 s (test code = 6005609966) MV Peak A Amrita (test 58.0 cm/s code = 5449024539) MV Peak E Amrita (test 116.0 cm/s code = 7588603412) E/A ratio (test code = 2.00 ratio 2694183440) MR max PG (test code = 125.90 mm[Hg] 4441667601) MR max amrita (test code = 561.00 cm/s 0198035984) Mr max amrita (test code = 561.0 m/s 3083825324) MV Prop V (test code = 33.60 cm/s 2562833557) LAV(MOD-sp4) (test code 50.40 mL = 2049892563) MV E/e' septal (test 5.1 cm/s code = 9328325602) Tapse (test code = 1.37 cm 9239146202) LVOT stroke volume 42.60 cm3 (test code = 5977468394) LVOT peak amrita (test 96.3 cm/s code = 4374607826) LVOT mn grad (test code 1.6 mmHg = 1760894914) AV LVOT peak gradient 3.7 mmHg (test code = 1688671652) LVOT peak VTI (test 20.8 cm code = 0961835924) LV V1 mean (test code = 59.50 cm/s 7138186247) LA Volume Index (BP) 39.6 mL/m2 (test code = 3946387940) LA volume (BP) (test 57.2 mL code = 4924604240) LAV(MOD-sp2) (test code 59.90 mL = 9167002603) AV regurgitation 482.7 ms pressure 1/2 time (test code = 5361250670) AI dec slope (test code 212.30 cm/s2 = 8559472340) AI max amrita (test code = 349.90 cm/s 8134251443) AI max PG (test code = 49.00 mm[Hg] 7720339808) LVIDD (test code = 3.90 cm 8274310027) Left Ventricular End 66.7 mL Diastolic Volume by Teichholz Method (test code = 1941205) EF(Teich) (test code = 67.60 % 7113925226) FS (test code = 37 % 7567064315) EF - 2D (test code = 67.60 % 98376844) IVS (test code = 1.22 cm 4189583162) Interventricular Septum 1.22 cm Diastolic Thickness by 2D (test code = 7562184) LVPWD (test code = 1.12 cm 4136204505) PW (test code = 1.12 cm 0.6-1.7 7864618080) LVIDS (test code = 2.47 cm 9898611098) Left Ventricular End 21.6 mL Systolic Volume by Teichholz Method (test code = 5126319) Aortic valve mean 210.4 cm/s velocity (test code = 2111539296) Ao peak amrita (test code 307.4 cm/s = 3405053733) Ao VTI (test code = 68.2 cm 4623114268) AV area by cont VTI 0.6 cm2 (test code = 9894983988) AV area peak amrita (test 0.6 cm2 code = 5514619113) Ao max PG (test code = 37.80 mm[Hg] 7337684526) AV peak gradient (test 37.8 mmHg code = 2405778492) AV valve area (test 0.63 cm2 code = 8075439510) AV mean gradient (test 19.8 mmHg code = 4578540884) Radiology Study observation (narrative) (test code = 03131-9) ROBERT (test code = ROBERT) ?Left?Ventricle: Left [...] 2D, color flow Doppler and spectral Doppler. 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 ID - ARMAND [id number] 05:06:35 Test Item Value Reference Range Interpretation Comments MAGNESIUM (BEAKER) 1.7 mg/dL 1.6-2.6 Specimen slightly (test code = 627) hemolyzed [employer] Operating Engineer ID - NIMODYLAN LPROTHROMBIN TIME/[id number] 04:57:12 Test Item Value Reference Range Interpretation [...] mechanical heart valves.CBC W/PLT COUNT & AUTO [id number] 04:49:51 Test Item Value Reference Range Interpretation [...] 0.00-1.00 PERCENT (BEAKER) (test code = 2801) [id number] 10:05:40 Test Item Value Reference Range Interpretation Comments PARTIAL THROMBOPLASTIN TIME 49.3 seconds 22.5-36.0 H (BEAKER) (test code = 760) [id number] 07:34:27 Test Item Value Reference Range Interpretation Comments PARTIAL THROMBOPLASTIN TIME > seconds 22.5-36.0 HH (BEAKER) (test code = 760) [id number] 07:21:03 Test Item Value Reference Range Interpretation Comments MAGNESIUM (BEAKER) (test code = 2.0 mg/dL 1.6-2.6 627) [employer] Operating Engineer ID - PIAYA LBASIC METABOLIC [id number] 07:21:02 Test Item Value Reference Range Interpretation [...] rted eGFR is based on the CKD-EPI 202 equation t hat does not use a race coefficientEsti mated GFR is not as accur ate as Creatinine [place] in predicting glom erular filtration rate . Estimated GFR is not appl icable for dialysis patien ts Railroad Operating Engineer ID - PIAYA LPROTHROMBIN TIME/[id number] 07:11:04 Test Item Value Reference Range Interpretation [...] mechanical heart valves.CBC W/PLT COUNT & AUTO [id number] 06:42:15 Test Item Value Reference Range Interpretation [...] 0.00-1.00 PERCENT (BEAKER) (test code = 2801) [id number] 01:06:03 Test Item Value Reference Range Interpretation Comments PARTIAL THROMBOPLASTIN TIME 90.3 seconds 22.5-36.0 H (BEAKER) (test code = 760) [id number] 23:34:15 Test Item Value Reference Range Interpretation Comments PARTIAL THROMBOPLASTIN TIME > seconds 22.5-36.0 HH (BEAKER) (test code = 760) [id number] 14:56:56 Test Item Value Reference Range Interpretation Comments PARTIAL THROMBOPLASTIN TIME 40.2 seconds 22.5-36.0 H (BEAKER) (test code = 760) [id number] 12:49:04 Test Item Value Reference Range Interpretation Comments PARTIAL THROMBOPLASTIN TIME 139.9 seconds 22.5-36.0 H (BEAKER) (test code = 760) [id number] 08:00:43 Test Item Value Reference Range Interpretation Comments MAGNESIUM (BEAKER) (test code = 1.5 mg/dL 1.6-2.6 L 627) [employer] Operating Engineer ID - MARCOBASIC METABOLIC [id number] 08:00:42 Test Item Value Reference Range Interpretation [...] (test code = 697) EGFR (BEAKER) 78 Interpretati on of eGFR (test code = [...] not appl icable for dialysis patien ts Railroad Operating Engineer ID - [id number] 06:54:28 Test Item Value Reference Range Interpretation Comments PARTIAL THROMBOPLASTIN TIME 180.9 seconds 22.5-36.0 HH (BEAKER) (test code = 760) [id number] 06:30:25 Test Item Value Reference Range Interpretation Comments PARTIAL THROMBOPLASTIN TIME 61.3 seconds 22.5-36.0 H (BEAKER) (test code = 760) [id number] 04:16:14 Test Item Value Reference Range Interpretation Comments PARTIAL THROMBOPLASTIN TIME > seconds 22.5-36.0 HH (BEAKER) (test code = 760) PROTHROMBIN TIME/[id number] 03:42:33 Test Item Value Reference Range Interpretation [...] mechanical heart valves.CBC W/PLT COUNT & AUTO [id number] 03:35:52 Test Item Value Reference Range Interpretation [...] 0.00-1.00 PERCENT (BEAKER) (test code = 2801) [id number] 20:27:00 Test Item Value Reference Range Interpretation Comments PARTIAL THROMBOPLASTIN TIME 53.4 seconds 22.5-36.0 H (BEAKER) (test code = 760) [id number] 18:26:32 Test Item Value Reference Range Interpretation Comments PARTIAL THROMBOPLASTIN TIME 112.2 seconds 22.5-36.0 H (BEAKER) (test code = 760) [id number] 10:53:07 Test Item Value Reference Range Interpretation Comments PARTIAL THROMBOPLASTIN TIME 48.7 seconds 22.5-36.0 H (BEAKER) (test code = 760) [id number] 04:20:11 Test Item Value Reference Range Interpretation Comments PARTIAL THROMBOPLASTIN TIME 50.2 seconds 22.5-36.0 H (BEAKER) (test code = 760) [id number] 02:16:45 Test Item Value Reference Range Interpretation Comments PARTIAL THROMBOPLASTIN TIME 120.7 seconds 22.5-36.0 H (BEAKER) (test code = 760) [id number] 01:49:02 Test Item Value Reference Range Interpretation Comments MAGNESIUM (BEAKER) (test code = 1.7 mg/dL 1.6-2.6 627) [employer] Operating Engineer ID - [id number] 01:49:02 Test Item Value Reference Range Interpretation Comments PHOSPHORUS (BEAKER) (test code = 4.7 mg/dL 2.3-4.7 604) [employer] Operating Engineer ID - BSBASIC METABOLIC [id number] 01:49:01 Test Item Value Reference Range Interpretation [...] not appl icable for dialysis patien ts Railroad Operating Engineer ID - BSPROTHROMBIN TIME/[id number] 01:46:19 Test Item Value Reference Range Interpretation [...] mechanical heart valves.CBC W/PLT COUNT & AUTO [id number] 01:29:16 Test Item Value Reference Range Interpretation [...] H PERCENT (BEAKER) (test code = 2801) [id number] 18:43:50 Test Item Value Reference Range Interpretation Comments PARTIAL THROMBOPLASTIN TIME 56.0 seconds 22.5-36.0 H (BEAKER) (test code = 760) [id number] 16:49:50 Test Item Value Reference Range Interpretation Comments PARTIAL THROMBOPLASTIN TIME 123.0 seconds 22.5-36.0 H (BEAKER) (test code = 760) [id number] 08:57:26 Test Item Value Reference Range Interpretation Comments PARTIAL THROMBOPLASTIN TIME 48.3 seconds 22.5-36.0 H (BEAKER) (test code = 760) [id number] 05:52:08 Test Item Value Reference Range Interpretation Comments PARTIAL THROMBOPLASTIN TIME 134.4 seconds 22.5-36.0 H (BEAKER) (test code = 760) PROTHROMBIN TIME/[id number] 05:18:02 Test Item Value Reference Range Interpretation Comments PROTIME (BEAKER) (test code = 14.1 seconds 11.9-14.2 759) INR (BEAKER) (test code = 370) 1.16 <=5.90 RECOMMENDED COUMADIN/WARFARIN INR THERAPY RANGESSTANDARD DOSE: 2.0 - 3.0 Includes: PROPHYLAXIS for venous thrombosis, systemic embolization; TREATMENT for venous thrombosis and/or pulmonary embolus.HIGH RISK: Target INR is 2.5-3.5 for patients with mechanical heart valves.[id number] 05:06:39 Test Item Value Reference Range Interpretation Comments PHOSPHORUS (BEAKER) (test code = 4.9 mg/dL 2.3-4.7 H 604) [employer] Operating Engineer ID - BSBASIC METABOLIC [id number] 05:06:38 Test Item Value Reference Range Interpretation [...] not appl icable for dialysis patien ts Railroad Operating Engineer ID - [id number] 05:06:38 Test Item Value Reference Range Interpretation Comments MAGNESIUM (BEAKER) (test code = 1.7 mg/dL 1.6-2.6 627) Railroad Operating Engineer ID - BSCBC W/PLT COUNT & AUTO [id number] 04:48:51 Test Item Value Reference Range Interpretation [...] 0.00-1.00 PERCENT (BEAKER) (test code = 2801) [id number] 21:33:18 Test Item Value Reference Range Interpretation Comments PARTIAL THROMBOPLASTIN TIME 51.5 seconds 22.5-36.0 H (BEAKER) (test code = 760) HEMOGLOBIN AND [id number] 18:35:26 Test Item Value Reference Range Interpretation Comments HEMOGLOBIN (BEAKER) (test code = 9.5 GM/DL 11.2-15.7 L 410) HEMATOCRIT (BEAKER) (test code = 30.9 % 34.1-44.9 L 411) [employer] Operating Engineer ID - [id number] 14:30:55 Test Item Value Reference Range Interpretation Comments PARTIAL THROMBOPLASTIN TIME 59.3 seconds 22.5-36.0 H (BEAKER) (test code = 760) [id number] 06:21:11 Test Item Value Reference Range Interpretation Comments PARTIAL THROMBOPLASTIN TIME 62.1 seconds 22.5-36.0 H (BEAKER) (test code = 760) PROTHROMBIN TIME/[id number] 03:22:14 Test Item Value Reference Range Interpretation Comments PROTIME (BEAKER) (test code = 14.8 seconds 11.9-14.2 H 759) INR (BEAKER) (test code = 370) 1.23 <=5.90 RECOMMENDED COUMADIN/WARFARIN INR THERAPY RANGESSTANDARD DOSE: 2.0 - 3.0 Includes: PROPHYLAXIS for venous thrombosis, systemic embolization; TREATMENT for venous thrombosis and/or pulmonary embolus.HIGH RISK: Target INR is 2.5-3.5 for patients with mechanical heart valves.[id number] 03:16:55 Test Item Value Reference Range Interpretation Comments MAGNESIUM (BEAKER) (test code = 2.2 mg/dL 1.6-2.6 627) [employer] Operating Engineer ID - [id number] 03:16:55 Test Item Value Reference Range Interpretation Comments PHOSPHORUS (BEAKER) (test code = 3.8 mg/dL 2.3-4.7 604) [employer] Operating Engineer ID - BSBASIC METABOLIC [id number] 03:16:54 Test Item Value Reference Range Interpretation [...] not appl icable for dialysis patien ts Railroad Operating Engineer ID - BSCBC W/PLT COUNT & AUTO [id number] 02:57:48 Test Item Value Reference Range Interpretation [...] PERCENT (BEAKER) (test code = 2801) Prepare [id number] 23:54:00 Test Item Value Reference Range Interpretation Comments CROSSMATCH (test code = 2264) COMPATIBLE Unit ABO (test code = A Pos 4116787) UNIT NUMBER (test code = [id number] 934-0) Status (test code = 3081369) TX_TIMEINCHART Blood Bank Product (test code RED BLOOD CELLS = 2263) PRODUCT CODE (test code = S7061C90 933-2) [facility] [id number] 23:54:00 Test Item Value Reference Range Interpretation Comments CROSSMATCH (test code = 2264) COMPATIBLE Unit ABO (test code = A Pos 2020072) UNIT NUMBER (test code = [id number] 934-0) Status (test code = 7990362) TX_TIMEINCHART Blood Bank Product (test code RED BLOOD CELLS = 2263) PRODUCT CODE (test code = Q5896U09 933-2) [facility] [id number] 23:54:00 Test Item Value Reference Range Interpretation Comments CROSSMATCH (test code = 2264) COMPATIBLE Unit ABO (test code = A Pos 5302200) UNIT NUMBER (test code = [id number] 934-0) Status (test code = 2708156) TX_TIMEINCHART Blood Bank Product (test code RED BLOOD CELLS = 2263) PRODUCT CODE (test code = R2226P69 933-2) [facility] [id number] 23:54:00 Test Item Value Reference Range Interpretation Comments CROSSMATCH (test code = 2264) COMPATIBLE Unit ABO (test code = A Pos 0742094) UNIT NUMBER (test code = [id number] 934-0) Status (test code = 9888415) TX_TIMEINCHART Blood Bank Product (test code RED BLOOD CELLS = 2263) PRODUCT CODE (test code = I1880U36 933-2) [facility] [id number] 23:54:00 Test Item Value Reference Range Interpretation Comments CROSSMATCH (test code = 2264) COMPATIBLE Unit ABO (test code = A Pos 6519265) UNIT NUMBER (test code = [id number] 934-0) Status (test code = 7770757) TX_TIMEINCHART Blood Bank Product (test code RED BLOOD CELLS = 2263) PRODUCT CODE (test code = A9140O26 933-2) [facility]2023-02-06 23:54:00 Test Item Value Reference Range Interpretation Comments CROSSMATCH (test code = 2264) COMPATIBLE Unit ABO (test code = A Pos 5942960) UNIT NUMBER (test code = [id number] 934-0) Status (test code = 0582279) TX_TIMEINCHART Blood Bank Product (test code RED BLOOD CELLS = 2263) PRODUCT CODE (test code = D7345Z57 933-2) [facility] [id number] 23:54:00 Test Item Value Reference Range Interpretation Comments CROSSMATCH (test code = 2264) COMPATIBLE Unit ABO (test code = A Pos 5934694) UNIT NUMBER (test code = [id number] 934-0) Status (test code = 4145143) TX_TIMEINCHART Blood Bank Product (test code RED BLOOD CELLS = 2263) PRODUCT CODE (test code = R7564J50 933-2) [facility] [id number] 23:54:00 Test Item Value Reference Range Interpretation Comments CROSSMATCH (test code = 2264) COMPATIBLE Unit ABO (test code = A Pos 9244776) UNIT NUMBER (test code = [id number] 934-0) Status (test code = 4679786) TX_TIMEINCHART Blood Bank Product (test code RED BLOOD CELLS = 2263) PRODUCT CODE (test code = F4966E04 933-2) [facility] [id number] 23:54:00 Test Item Value Reference Range Interpretation Comments CROSSMATCH (test code = 2264) COMPATIBLE Unit ABO (test code = A Pos 3073443) UNIT NUMBER (test code = [id number] 934-0) Status (test code = 2232881) TX_TIMEINCHART Blood Bank Product (test code RED BLOOD CELLS = 2263) PRODUCT CODE (test code = N8265C32 933-2) [facility] [id number] 23:54:00 Test Item Value Reference Range Interpretation Comments CROSSMATCH (test code = 2264) COMPATIBLE Unit ABO (test code = A Pos 9885614) UNIT NUMBER (test code = [id number] 934-0) Status (test code = 9001638) TX_TIMEINCHART Blood Bank Product (test code RED BLOOD CELLS = 2263) PRODUCT CODE (test code = O4501C86 933-2) [facility] [id number] 23:54:00 Test Item Value Reference Range Interpretation Comments CROSSMATCH (test code = 2264) COMPATIBLE Unit ABO (test code = A Pos 2255097) UNIT NUMBER (test code = [id number] 934-0) Status (test code = 3837883) TX_TIMEINCHART Blood Bank Product (test code RED BLOOD CELLS = 2263) PRODUCT CODE (test code = J6059J70 933-2) [facility] [id number] 23:54:00 Test Item Value Reference Range Interpretation Comments CROSSMATCH (test code = 2264) COMPATIBLE Unit ABO (test code = A Pos 9712048) UNIT NUMBER (test code = [id number] 934-0) Status (test code = 6277962) TX_TIMEINCHART Blood Bank Product (test code RED BLOOD CELLS = 2263) PRODUCT CODE (test code = E2575G43 933-2) [facility] [id number] 21:46:53 Test Item Value Reference Range Interpretation Comments HEMOGLOBIN (BEAKER) (test code = 9.0 GM/DL 11.2-15.7 L 410) HEMATOCRIT (BEAKER) (test code = 30.5 % 34.1-44.9 L 411) Railroad Operating Engineer ID - [id number] Echo W/Doppler(CW/PW/Color)2022-05-21 18:02:14Ejection FractionSLEH ECHO HEARTLAB [facility]D Echo W/Doppler(CW/PW/Color)2022-05-21 18:02:14Ejection FractionSLEH ECHO HEARTLAB [facility] Echo W/Doppler(CW/PW/Color) 2022-05-21 18:02:14Ejection FractionSLEH ECHO HEARTLAB [facility] Echo W/Doppler(CW/PW/Color)2022-05-21 18:02:14Ejection FractionSLEH ECHO HEARTLAB [facility] Echo W/Doppler(CW/PW/Color)2022-05-21 18:02:14Ejection FractionSLEH ECHO HEARTLAB [facility] Echo W/Doppler(CW/PW/Color) 2022-05-21 18:02:14Ejection FractionSLEH ECHO HEARTLAB [facility] Echo W/Doppler(CW/PW/Color)2022-05-21 18:02:14[facility](CW/PW/Color)2022-05-21 18:02:14Ejection FractionSLEH ECHO HEARTLAB [facility] Echo W/Doppler(CW/PW/Color) 2022-05-21 18:02:14Ejection FractionSLEH ECHO HEARTLAB [facility] Echo W/Doppler(CW/PW/Color)2022-05-21 18:02:14Ejection FractionSLEH ECHO HEARTLAB [facility] Echo W/Doppler(CW/PW/Color)2022-05-21 18:02:14Ejection FractionSLEH ECHO HEARTLAB [facility] Echo W/Doppler(CW/PW/Color) 2022-05-21 18:02:14Ejection FractionSLEH [facility]CHO [facility]LAB [facility] 15:07:17 Test Item Value Reference Range Interpretation Comments PARTIAL THROMBOPLASTIN TIME 68.4 seconds 22.5-36.0 H (BEAKER) (test code = 760) PROTHROMBIN TIME/[id number] 15:05:56 Test Item Value Reference Range Interpretation Comments PROTIME (BEAKER) (test code = 15.5 seconds 11.9-14.2 H 759) INR (BEAKER) (test code = 370) 1.31 <=5.90 RECOMMENDED COUMADIN/WARFARIN INR THERAPY RANGESSTANDARD DOSE: 2.0 - 3.0 Includes: PROPHYLAXIS for venous thrombosis, systemic embolization; TREATMENT for venous thrombosis and/or pulmonary embolus.HIGH RISK: Target INR is 2.5-3.5 for patients with mechanical heart valves.TSH/FREE T4 IF [id number] 13:50:00 Test Item Value Reference Range Interpretation Comments THYROID STIMULATING HORMONE 1.746 uIU/mL 0.350-4.940 (BEAKER) (test code = 772) [employer] Operating Engineer ID - NIMOAYA LHEMOGLOBIN AND [id number] 13:00:10 Test Item Value Reference Range Interpretation Comments HEMOGLOBIN (BEAKER) (test code = 9.0 GM/DL 11.2-15.7 L 410) HEMATOCRIT (BEAKER) (test code = 29.3 % 34.1-44.9 L 411) Railroad Operating Engineer ID - [id number] 08:55:39 Test Item Value Reference Range Interpretation Comments PARTIAL THROMBOPLASTIN TIME 70.0 seconds 22.5-36.0 H (BEAKER) (test code = 760) [id number] 05:39:20 Test Item Value Reference Range Interpretation Comments PHOSPHORUS (BEAKER) (test code = 3.3 mg/dL 2.3-4.7 604) Railroad Operating Engineer ID - MARCOBASIC METABOLIC [id number] 05:39:19 Test Item Value Reference Range Interpretation [...] not appl icable for dialysis patien ts Railroad Operating Engineer ID - [id number] 05:39:19 Test Item Value Reference Range Interpretation Comments MAGNESIUM (BEAKER) (test code = 1.6 mg/dL 1.6-2.6 627) Railroad Operating Engineer ID - ITZOCBC W/PLT COUNT & AUTO [id number] 05:18:48 Test Item Value Reference Range Interpretation [...] 0.00-1.00 PERCENT (BEAKER) (test code = 2801) [id number] 01:34:38 Test Item Value Reference Range Interpretation Comments PARTIAL THROMBOPLASTIN TIME 94.3 seconds 22.5-36.0 H (BEAKER) (test code = 760) PROTHROMBIN TIME/[id number] 01:32:54 Test Item Value Reference Range Interpretation Comments PROTIME (BEAKER) (test code = 15.8 seconds 11.9-14.2 H 759) INR (BEAKER) (test code = 370) 1.35 <=5.90 RECOMMENDED COUMADIN/WARFARIN INR THERAPY RANGESSTANDARD DOSE: 2.0 - 3.0 Includes: PROPHYLAXIS for venous thrombosis, systemic embolization; TREATMENT for venous thrombosis and/or pulmonary embolus.HIGH RISK: Target INR is 2.5-3.5 for patients with mechanical heart valves.HEMOGLOBIN AND [id number] 20:48:52 Test Item Value Reference Range Interpretation Comments HEMOGLOBIN (BEAKER) (test code = 8.6 GM/DL 11.2-15.7 L 410) HEMATOCRIT (BEAKER) (test code = 27.9 % 34.1-44.9 L 411) [employer] Operating Engineer ID - [id number] 17:34:13 Test Item Value Reference Range Interpretation Comments PARTIAL THROMBOPLASTIN TIME 53.7 seconds 22.5-36.0 H (BEAKER) (test code = 760) PROTHROMBIN TIME/[id number] 17:33:32 Test Item Value Reference Range Interpretation Comments PROTIME (BEAKER) (test code = 16.0 seconds 11.9-14.2 H 759) INR (BEAKER) (test code = 370) 1.37 <=5.90 RECOMMENDED COUMADIN/WARFARIN INR THERAPY RANGESSTANDARD DOSE: 2.0 - 3.0 Includes: PROPHYLAXIS for venous thrombosis, systemic embolization; TREATMENT for venous thrombosis and/or pulmonary embolus.HIGH RISK: Target INR is 2.5-3.5 for patients with mechanical heart valves.[id number] 13:24:26 Test Item Value Reference Range Interpretation Comments PARTIAL THROMBOPLASTIN TIME 70.7 seconds 22.5-36.0 H (BEAKER) (test code = 760) HEMOGLOBIN AND [id number] 13:10:45 Test Item Value Reference Range Interpretation Comments HEMOGLOBIN (BEAKER) (test code = 8.4 GM/DL 11.2-15.7 L 410) HEMATOCRIT (BEAKER) (test code = 27.0 % 34.1-44.9 L 411) [employer] ID - [id number] [id number] 08:19:00 Test Item Value Reference Range Interpretation Comments CROSSMATCH (test code = 2264) COMPATIBLE Unit ABO (test code = A Pos [id number]) UNIT NUMBER (test code = [id number] 934-0) Status (test code = 4515670) ISSUED Blood Bank Product (test code RED BLOOD CELLS = 2263) PRODUCT CODE (test code = M2410W94 933-2) [facility] [id number] 08:19:00 Test Item Value Reference Range Interpretation Comments CROSSMATCH (test code = 2264) COMPATIBLE Unit ABO (test code = A Pos 3682859) UNIT NUMBER (test code = [id number] 934-0) Status (test code = 7627113) ISSUED Blood Bank Product (test code RED BLOOD CELLS = 2263) PRODUCT CODE (test code = X1618Q61 933-2) [facility] CenterAPTT2023-02-[facility] 05:24:24 Test Item Value Reference Range Interpretation Comments PARTIAL THROMBOPLASTIN TIME 91.6 seconds 22.5-36.0 H (BEAKER) (test code = 760) [id number] 04:22:23 Test Item Value Reference Range Interpretation Comments MAGNESIUM (BEAKER) (test code = 1.8 mg/dL 1.6-2.6 627) Railroad Operating Engineer ID - ARMAND [id number] 04:22:23 Test Item Value Reference Range Interpretation Comments PHOSPHORUS (BEAKER) (test code = 4.1 mg/dL 2.3-4.7 604) Railroad Operating Engineer ID - ARMAND LBASIC METABOLIC [id number] 04:22:22 Test Item Value Reference Range Interpretation [...] not appl icable for dialysis patien ts Railroad Operating Engineer ID - PIAYA LPROTHROMBIN TIME/[id number] 03:58:55 Test Item Value Reference Range Interpretation [...] mechanical heart valves.CBC W/PLT COUNT & AUTO [id number] 03:54:23 Test Item Value Reference Range Interpretation [...] 0.00-1.00 PERCENT (BEAKER) (test code = 2801) [id number] 23:23:33 Test Item Value Reference Range Interpretation Comments PARTIAL THROMBOPLASTIN TIME 63.2 seconds 22.5-36.0 H (BEAKER) (test code = 760) HEMOGLOBIN AND [id number] 21:26:00 Test Item Value Reference Range Interpretation Comments HEMOGLOBIN (BEAKER) (test code = 7.6 GM/DL 11.2-15.7 L 410) HEMATOCRIT (BEAKER) (test code = 24.8 % 34.1-44.9 L 411) Railroad Operating Engineer ID - [id number] 17:30:54 Test Item Value Reference Range Interpretation Comments PARTIAL THROMBOPLASTIN TIME 37.0 seconds 22.5-36.0 H (BEAKER) (test code = 760) PROTHROMBIN TIME/[id number] 17:29:53 Test Item Value Reference Range Interpretation Comments PROTIME (BEAKER) (test code = 18.3 seconds 11.9-14.2 H 759) INR (BEAKER) (test code = 370) 1.62 <=5.90 RECOMMENDED COUMADIN/WARFARIN INR THERAPY RANGESSTANDARD DOSE: 2.0 - 3.0 Includes: PROPHYLAXIS for venous thrombosis, systemic embolization; TREATMENT for venous thrombosis and/or pulmonary embolus.HIGH RISK: Target INR is 2.5-3.5 for patients with mechanical heart valves.PROTHROMBIN TIME/[id number] 12:31:00 Test Item Value Reference Range Interpretation Comments PROTIME (BEAKER) (test code = 18.7 seconds 11.9-14.2 H 759) INR (BEAKER) (test code = 370) 1.61 <=5.90 RECOMMENDED COUMADIN/WARFARIN INR THERAPY RANGESSTANDARD DOSE: 2.0 - 3.0 Includes: PROPHYLAXIS for venous thrombosis, systemic embolization; TREATMENT for venous thrombosis and/or pulmonary embolus.HIGH RISK: Target INR is 2.5-3.5 for patients with mechanical heart valves.HEMOGLOBIN AND [id number] 12:24:20 Test Item Value Reference Range Interpretation Comments HEMOGLOBIN (BEAKER) (test code = 7.4 GM/DL 11.2-15.7 L 410) HEMATOCRIT (BEAKER) (test code = 23.7 % 34.1-44.9 L 411) Railroad Operating Engineer ID - 6000POC-Glucose [id number] 05:40:23 Test Item Value Reference Range Interpretation Comments POC-Glucose Meter (test 78 mg/dL 70-110 : TE STED AT [facility] code = 1538) [address] [place] [address], 770 30: 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 valarie ID = [id number] for James Eason Lab Interpretation (test Normal code = 57844-0) [facility] Center[facility]Glucose [id number] 05:40:23 Test Item Value Reference Range Interpretation Comments POC-Glucose Meter (test 78 mg/dL 70-110 : TE STED AT [facility] code = 1538) [address] [place] [address], 770 30: 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 valarie ID = [id number] for Yumi, James Lab Interpretation (test Normal code = 06379-2) [facility] CenterPO-Glucose [id number] 05:40:23 Test Item Value Reference Range Interpretation Comments POC-Glucose Meter (test 78 mg/dL 70-110 : TE STED AT [facility] code = 1538) [address] [place] [address], 770 30: 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 valraie ID = [id number] for Yumi, James Lab Interpretation (test Normal code = 17864-6) [facility]-Glucose [id number] 05:40:23 Test Item Value Reference Range Interpretation Comments POC-Glucose Meter (test 78 mg/dL 70-110 : TE STED AT [facility] code = 1538) [address] [place] [address], [facility] 30: 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 valarie ID = [id number] for Yumi, James Lab Interpretation (test Normal code = 29947-1) [facility]-Glucose [id number] 05:40:23 Test Item Value Reference Range Interpretation Comments POC-Glucose Meter (test 78 mg/dL 70-110 : TE STED AT [facility] code = 1538) [address] [place] [address], 770 30: 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 valarie ID = [id number] for Yumi, James Lab Interpretation (test Normal code = 10646-9) [facility]-Glucose [id number] 05:40:23 Test Item Value Reference Range Interpretation Comments POC-Glucose Meter (test 78 mg/dL 70-110 : TE STED AT [facility] code = 1538) [address] [place] [address], 770 30: 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 valarie ID = [id number] for Yumi, James Lab Interpretation (test Normal code = 77751-2) [facility]PO[facility] [id number] 05:40:23 Test Item Value Reference Range Interpretation Comments POC-Glucose Meter (test 78 mg/dL 70-110 : TE STED AT [facility] code = 1538) [address] [place] [address], 770 30: 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 valarie ID = [id number] for Yumi, James Lab Interpretation (test Normal code = 25136-9) [facility]-Glucose [id number] 05:40:23 Test Item Value Reference Range Interpretation Comments POC-Glucose Meter (test 78 mg/dL 70-110 : [facility] [address] [place] [address], [facility] 30: 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 valarie ID = [id number] for Yumi, James Lab Interpretation (test Normal code = 51900-5) [facility]-Glucose [id number] 05:40:23 Test Item Value Reference Range Interpretation Comments POC-Glucose Meter (test 78 mg/dL 70-110 : TE STED AT [facility] code = 1538) [address] [place] [address], [facility] 30: 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 ID = [id number] for Yumi, James Lab Interpretation (test Normal code = 37136-7) [facility]-Glucose [id number] 05:40:23 Test Item Value Reference Range Interpretation Comments POC-Glucose Meter (test 78 mg/dL 70-110 : TE STED AT [facility] code = 1538) [address] [place] [address], [facility] 30: 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 valarie ID = [id number] for Yumi, James Lab Interpretation (test Normal code = 64126-7) [facility]-Glucose [id number] 05:40:23 Test Item Value Reference Range Interpretation Comments POC-Glucose Meter (test 78 mg/dL 70-110 : TE STED AT [facility] code = 1538) [address] [place] [address], [facility] 30: 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 valarie ID = [id number] for Yumi, James Lab Interpretation (test Normal code = 69100-4) [facility] [id number] 05:40:23 Test Item Value Reference Range Interpretation Comments POC-Glucose Meter (test 78 mg/dL 70-110 : TE STED AT [facility] code = 1538) [address] [place] [address], [facility] 30: 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 valarie ID = [id number] for Yumi, James Lab Interpretation (test Normal code = 61665-2) [facility]PO[facility] [id number] 05:40:23 Test Item Value Reference Range Interpretation Comments POC-Glucose Meter (test 78 mg/dL 70-110 : TE STED AT [facility] code = 1538) [address] [place] [address], 770 30: 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 valarie ID = [id number] for James Eason Lab Interpretation (test Normal code = 02225-3) [facility]-Glucose [id number] 05:40:23 Test Item Value Reference Range Interpretation Comments POC-Glucose Meter (test 78 mg/dL 70-110 : TE STED AT [facility] code = 1538) [address] [facility], 770 30: 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 valarie ID = [id number] for James Eason Lab Interpretation (test Normal code = 22760-9) [facility]-GLUCOSE [id number] 05:40:23 Test Item Value Reference Range Interpretation Comments POC-GLUCOSE METER 78 mg/dL 70-110 : TESTED A T [facility] 6720 (BEAKER) (test code = JOSELITO Franco [facility], 1538) [address]: 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 valarie ID = [id number] for James Cisneros [id number] 04:23:09 Test Item Value Reference Range Interpretation Comments MAGNESIUM (BEAKER) (test code = 2.1 mg/dL 1.6-2.6 627) Railroad Operating Engineer ID - PIAYA [id number] 04:23:09 Test Item Value Reference Range Interpretation Comments PHOSPHORUS (BEAKER) (test code = 1.9 mg/dL 2.3-4.7 L 604) Railroad Operating Engineer ID - PIAYA LBASIC METABOLIC [id number] 04:23:08 Test Item Value Reference Range Interpretation [...] not appl icable for dialysis patien ts Railroad Operating Engineer ID - PIAYA LPROTHROMBIN TIME/[id number] 04:07:24 Test Item Value Reference Range Interpretation [...] mechanical heart valves.CBC W/PLT COUNT & AUTO [id number] 04:00:27 Test Item Value Reference Range Interpretation [...] PERCENT (BEAKER) (test code = 2801) POCT-GLUCOSE [id number] 23:14:02 Test Item Value Reference Range Interpretation Comments POC-GLUCOSE METER 86 mg/dL 70-110 : TESTED A T [facility] 6720 (BEAKER) (test code = [facility], 1538) [address]: 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 valarie ID = [id number] for Robles Hanson BUN AND CREATININE [id number] 21:02:50 Test Item Value Reference Range Interpretation Comments BLOOD UREA 10 mg/dL 7-21 NITROGEN (BEAKER) (test code = 354) CREATININE 0.79 mg/dL 0.57-1.25 (BEAKER) (test code = 358) BUN/CREAT RATIO 13 For a normal individual on (BEAKER) (test a normal diet , the code = reference inter [place] for the [id number]) mass ratio rang es between 12:1 and [...] not appl icable for dialysis patien ts Railroad Operating Engineer ID - [id number] 21:02:49 Test Item Value Reference Range Interpretation Comments MAGNESIUM (BEAKER) (test code = 2.1 mg/dL 1.6-2.6 627) Railroad Operating Engineer ID - [id number] 21:02:49 Test Item Value Reference Range Interpretation Comments POTASSIUM (BEAKER) (test code = 3.7 meq/L 3.5-5.1 379) Railroad Operating Engineer ID - BSHEMOGLOBIN AND [id number] 20:18:40 Test Item Value Reference Range Interpretation Comments HEMOGLOBIN (BEAKER) (test code = 7.5 GM/DL 11.2-15.7 L 410) HEMATOCRIT (BEAKER) (test code = 23.4 % 34.1-44.9 L 411) Railroad Operating Engineer ID - [id number], CTA [id number] 19:41:00Unlisted Reason for Exam - Click Yes and Enter Reason Below->YesUnlisted Reason for Exam->Looking for mesenteric ischemia. [facility] : 1955 Sex: FFINAL [...] Goff MDReport Verified Date/Time: 05/18/2022 19:41:16 POCT-GLUCOSE [id number] 19:08:28 Test Item Value Reference Range Interpretation Comments POC-GLUCOSE METER 91 mg/dL 70-110 : TESTED A T [facility] 6720 ([facility]) (test code = JOSELITO Franco [facility], 1538) [address]: 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 valarie ID = [id number] for Scarlet Maravlila HIGH SENSITIVITY TROPONIN [id number] 16:22:26 Test Item Value Reference Range Interpretation Comments HIGH SENSITIVITY TROPONIN I (test 9 pg/ml <=17 code = 9195807) Railroad Operating Engineer ID - BSThe [facility]ALTH[facility] LIAISON STAT High Sensitivity Troponin-I results should be used in conjunctionwith other diagnostic information such as ECG, clinical observations and information, and patient symptoms to aid in the diagnosis of [place].Urinalysis w/Microscopic + Reflex to [id number] 16:12:56 Test Item Value Reference Range Interpretation Comments Color, UA (test code Yellow = 5778-6) Clarity, UA (test Hazy code = 5767-9) Specific [place], UA 1.045 1.001-1.035 H (test code = 5811-5) pH, UA (test code = 6.5 5.0-8.0 5803-2) Protein, UA (test 20 mg/dL Negative A code = 10305-3) Glucose, UA (test Negative Negative code = 365) Ketones, UA (test Negative Negative code = 2514-8) Bilirubin, UA (test Negative Negative code = 26310-2) Blood, UA (test code Moderate Negative A = 92514-5) Nitrite, UA (test Negative Negative code = 5802-4) Leukocytes, UA (test Large Negative A code = 5799-2) Urobilinogen, UA 0.2 0.2-1.0 (test code = 93094-9) RBC, UA (test code = 34 See_Comment [Autom ated 24394-1) message] The system which generated this result [...] . Bacteria, UA (test Few code = 97814-6) Squam Epithel, UA <1 See_Comment [Automate d (test code = 06198-3) messag e] The system which generated this result transmit bandar reference range : /HPF. The reference range was not used to interpret this result as normal/abnormal . Specimen Source (test code = 2795) ROBERT (test code = ROBERT) Railroad Operating Engineer ID - [auto]Railroad Operating Engineer ID - tech Lab Interpretation Abnormal (test code = 40575-7) [facility] + Reflex to Culture 2022-05-18 16:12:56 Test Item Value Reference Range Interpretation Comments Color, UA (test code Yellow = 5778-6) Clarity, UA (test Hazy code = 5767-9) Specific [place], UA 1.045 1.001-1.035 H (test code = 5811-5) pH, UA (test code = 6.5 5.0-8.0 5803-2) Protein, UA (test 20 mg/dL Negative A code = 97051-1) Glucose, UA (test Negative Negative code = 365) Ketones, UA (test Negative Negative code = 2514-8) Bilirubin, UA (test Negative Negative code = 91006-5) Blood, UA (test code Moderate Negative A = 25956-1) Nitrite, UA (test Negative Negative code = 5802-4) Leukocytes, UA (test Large Negative A code = 5799-2) Urobilinogen, UA 0.2 0.2-1.0 (test code = 08771-1) RBC, UA (test code = 34 See_Comment [Autom ated 57381-4) message] The system which generated this result [...] . Bacteria, UA (test Few code = 24039-5) Squam Epithel, UA <1 See_Comment [Automate d (test code = 86349-0) messag e] The system which generated this result transmit bandar reference range : /HPF. The reference range was not used to interpret this result as normal/abnormal . Specimen Source (test code = 2795) ROBERT (test code = ROBERT) Railroad Operating Engineer ID - [auto]Railroad Operating Engineer ID - tech Lab Interpretation Abnormal (test code = 83154-3) [facility] + Reflex to Culture 2022-05-18 16:12:56 Test Item Value Reference Range Interpretation Comments Color, UA (test code Yellow = 5778-6) Clarity, UA (test Hazy code = 5767-9) Specific [place], UA 1.045 1.001-1.035 H (test code = 5811-5) pH, UA (test code = 6.5 5.0-8.0 5803-2) Protein, UA (test 20 mg/dL Negative A code = 62818-6) Glucose, UA (test Negative Negative code = 365) Ketones, UA (test Negative Negative code = 2514-8) Bilirubin, UA (test Negative Negative code = 86117-0) Blood, UA (test code Moderate Negative A = 01584-5) Nitrite, UA (test Negative Negative code = 5802-4) Leukocytes, UA (test Large Negative A code = 5799-2) Urobilinogen, UA 0.2 0.2-1.0 (test code = 44620-1) RBC, UA (test code = 34 See_Comment [Autom ated 27328-7) message] The system which generated this result [...] . Bacteria, UA (test Few code = 62228-4) Squam Epithel, UA <1 See_Comment [Automate d (test code = 49375-2) messag e] The system which generated this result transmit bandar reference range : /HPF. The reference range was not used to interpret this result as normal/abnormal . Specimen Source (test code = 2795) ROBERT (test code = ROBERT) Railroad Operating Engineer ID - [auto]Railroad Operating Engineer ID - tech Lab Interpretation Abnormal (test code = 67461-7) [facility] + Reflex to Culture 2022-05-18 16:12:56 Test Item Value Reference Range Interpretation Comments Color, UA (test code Yellow = 5778-6) Clarity, UA (test Hazy code = 5767-9) Specific [place], UA 1.045 1.001-1.035 H (test code = 5811-5) pH, UA (test code = 6.5 5.0-8.0 5803-2) Protein, UA (test 20 mg/dL Negative A code = 00488-3) Glucose, UA (test Negative Negative code = 365) Ketones, UA (test Negative Negative code = 2514-8) Bilirubin, UA (test Negative Negative code = 08894-4) Blood, UA (test code Moderate Negative A = 13540-6) Nitrite, UA (test Negative Negative code = 5802-4) Leukocytes, UA (test Large Negative A code = 5799-2) Urobilinogen, UA 0.2 0.2-1.0 (test code = 41513-9) RBC, UA (test code = 34 See_Comment [Autom ated 74318-5) message] The system which generated this result [...] . Bacteria, UA (test Few code = 15091-6) Squam Epithel, UA <1 See_Comment [Automate d (test code = 55543-0) messag e] The system which generated this result transmit bandar reference range : /HPF. The reference range was not used to interpret this result as normal/abnormal . Specimen Source (test code = 2795) ROBERT (test code = ROBERT) Railroad Operating Engineer ID - [auto]Railroad Operating Engineer ID - tech Lab Interpretation Abnormal (test code = 64174-2) [facility] + Reflex to Culture 2022-05-18 16:12:56 Test Item Value Reference Range Interpretation Comments Color, UA (test code Yellow = 5778-6) Clarity, UA (test Hazy code = 5767-9) Specific [place], UA 1.045 1.001-1.035 H (test code = 5811-5) pH, UA (test code = 6.5 5.0-8.0 5803-2) Protein, UA (test 20 mg/dL Negative A code = 86011-3) Glucose, UA (test Negative Negative code = 365) Ketones, UA (test Negative Negative code = 2514-8) Bilirubin, UA (test Negative Negative code = 03297-1) Blood, UA (test code Moderate Negative A = 50158-4) Nitrite, UA (test Negative Negative code = 5802-4) Leukocytes, UA (test Large Negative A code = 5799-2) Urobilinogen, UA 0.2 0.2-1.0 (test code = 32928-1) RBC, UA (test code = 34 See_Comment [Autom ated 54838-5) message] The system which generated this result [...] . Bacteria, UA (test Few code = 05765-1) Squam Epithel, UA <1 See_Comment [Automate d (test code = 24320-3) messag e] The system which generated this result transmit abndar reference range : /HPF. The reference range was not used to interpret this result as normal/abnormal . Specimen Source (test code = 2795) ROBERT (test code = ROBERT) Railroad Operating Engineer ID - [auto]Railroad Operating Engineer ID - tech Lab Interpretation Abnormal (test code = 78284-7) [facility] + Reflex to Culture 2022-05-18 16:12:56 Test Item Value Reference Range Interpretation Comments Color, UA (test code Yellow = 5778-6) Clarity, UA (test Hazy code = 5767-9) Specific [place], UA 1.045 1.001-1.035 H (test code = 5811-5) pH, UA (test code = 6.5 5.0-8.0 5803-2) Protein, UA (test 20 mg/dL Negative A code = 15967-3) Glucose, UA (test Negative Negative code = 365) Ketones, UA (test Negative Negative code = 2514-8) Bilirubin, UA (test Negative Negative code = 96584-7) Blood, UA (test code Moderate Negative A = 87502-8) Nitrite, UA (test Negative Negative code = 5802-4) Leukocytes, UA (test Large Negative A code = 5799-2) Urobilinogen, UA 0.2 0.2-1.0 (test code = 33831-7) RBC, UA (test code = 34 See_Comment [Autom ated 65262-5) message] The system which generated this result [...] . Bacteria, UA (test Few code = 50411-2) Squam Epithel, UA See_Comment [Automate d (test code = 18113-7) messag e] The system which generated this result transmit bandar reference range : /HPF. The reference range was not used to interpret this result as normal/abnormal . Specimen Source (test code = 2795) ROBERT (test code = ROBERT) Railroad Operating Engineer ID - [auto]Railroad Operating Engineer ID - tech Lab Interpretation Abnormal (test code = 72506-4) [facility] + Reflex to Culture 2022-05-18 16:12:56 Test Item Value Reference Range Interpretation Comments Color, UA (test code Yellow = 5778-6) Clarity, UA (test Hazy code = 5767-9) Specific [place], UA 1.045 1.001-1.035 H (test code = 5811-5) pH, UA (test code = 6.5 5.0-8.0 5803-2) Protein, UA (test 20 mg/dL Negative A code = 04418-7) Glucose, UA (test Negative Negative code = 365) Ketones, UA (test Negative Negative code = 2514-8) Bilirubin, UA (test Negative Negative code = 11644-4) Blood, UA (test code Moderate Negative A = 76745-3) Nitrite, UA (test Negative Negative code = 5802-4) Leukocytes, UA (test Large Negative A code = 5799-2) Urobilinogen, UA 0.2 0.2-1.0 (test code = 09617-7) RBC, UA (test code = 34 See_Comment [Autom ated 86588-9) message] The system which generated this result [...] . Bacteria, UA (test Few code = 12184-2) Squam Epithel, UA See_Comment [Automate d (test code = 92558-8) messag e] The system which generated this result transmit bandar reference range : /HPF. The reference range was not used to interpret this result as normal/abnormal . Specimen Source (test code = 2795) ROBERT (test code = ROBERT) Railroad Operating Engineer ID - [auto]Railroad Operating Engineer ID - tech Lab Interpretation Abnormal (test code = 08634-2) [facility] + Reflex to Culture 2022-05-18 16:12:56 Test Item Value Reference Range Interpretation Comments Color, UA (test code Yellow = 5778-6) Clarity, UA (test Hazy code = 5767-9) Specific [place], UA 1.045 1.001-1.035 H (test code = 5811-5) pH, UA (test code = 6.5 5.0-8.0 5803-2) Protein, UA (test 20 mg/dL Negative A code = 27256-4) Glucose, UA (test Negative Negative code = 365) Ketones, UA (test Negative Negative code = 2514-8) Bilirubin, UA (test Negative Negative code = 88330-9) Blood, UA (test code Moderate Negative A = 87461-2) Nitrite, UA (test Negative Negative code = 5802-4) Leukocytes, UA (test Large Negative A code = 5799-2) Urobilinogen, UA 0.2 0.2-1.0 (test code = 82501-2) RBC, UA (test code = 34 See_Comment [Autom ated 02205-4) message] The system which generated this result [...] . Bacteria, UA (test Few code = 40430-0) Squam Epithel, UA See_Comment [Automate d (test code = 53056-4) messag e] The system which generated this result transmit bandar reference range : /HPF. The reference range was not used to interpret this result as normal/abnormal . Specimen Source (test code = 2795) ROBERT (test code = ROBERT) Railroad Operating Engineer ID - [auto]Railroad Operating Engineer ID - tech Lab Interpretation Abnormal (test code = 93465-2) [facility] + Reflex to Culture 2022-05-18 16:12:56 Test Item Value Reference Range Interpretation Comments Color, UA (test code Yellow = 5778-6) Clarity, UA (test Hazy code = 5767-9) Specific [place], UA 1.045 1.001-1.035 H (test code = 5811-5) pH, UA (test code = 6.5 5.0-8.0 5803-2) Protein, UA (test 20 mg/dL Negative A code = 54216-4) Glucose, UA (test Negative Negative code = 365) Ketones, UA (test Negative Negative code = 2514-8) Bilirubin, UA (test Negative Negative code = 96004-7) Blood, UA (test code Moderate Negative A = 99392-3) Nitrite, UA (test Negative Negative code = 5802-4) Leukocytes, UA (test Large Negative A code = 5799-2) Urobilinogen, UA 0.2 0.2-1.0 (test code = 61775-7) RBC, UA (test code = 34 See_Comment [Autom ated 67810-9) message] The system which generated this result [...] . Bacteria, UA (test Few code = 03203-7) Squam Epithel, UA See_Comment [Automate d (test code = 76112-7) messag e] The system which generated this result transmit bandar reference range : /HPF. The reference range was not used to interpret this result as normal/abnormal . Specimen Source (test code = 2795) ROBERT (test code = ROBERT) Railroad Operating Engineer ID - [auto]Railroad Operating Engineer ID - tech Lab Interpretation Abnormal (test code = 29593-0) [facility] Culture 2022-05-18 16:12:56 Test Item Value Reference Range Interpretation Comments Color, UA (test code Yellow = 5778-6) Clarity, UA (test Hazy code = 5767-9) Specific [place], UA 1.045 1.001-1.035 H (test code = 5811-5) pH, UA (test code = 6.5 5.0-8.0 5803-2) Protein, UA (test 20 mg/dL Negative A code = 23344-2) Glucose, UA (test Negative Negative code = 365) Ketones, UA (test Negative Negative code = 2514-8) Bilirubin, UA (test Negative Negative code = 15051-9) Blood, UA (test code Moderate Negative A = 09998-7) Nitrite, UA (test Negative Negative code = 5802-4) Leukocytes, UA (test Large Negative A code = 5799-2) Urobilinogen, UA 0.2 0.2-1.0 (test code = 17996-6) RBC, UA (test code = 34 See_Comment [Autom ated 57510-7) message] The system which generated this result [...] . Bacteria, UA (test Few code = 15287-0) Squam Epithel, UA See_Comment [Automate d (test code = 73236-0) messag e] The system which generated this result transmit bandar reference range : /HPF. The reference range was not used to interpret this result as normal/abnormal . Specimen Source (test code = 2795) ROBERT (test code = ROBERT) Railroad Operating Engineer ID - [auto]Railroad Operating Engineer ID - tech Lab Interpretation Abnormal (test code = 10899-3) [facility] Reflex [facility] Culture 2022-05-18 16:12:56 Test Item Value Reference Range Interpretation Comments Color, UA (test code Yellow = 5778-6) Clarity, UA (test Hazy code = 5767-9) Specific [place], UA 1.045 1.001-1.035 H (test code = 5811-5) pH, UA (test code = 6.5 5.0-8.0 5803-2) Protein, UA (test 20 mg/dL Negative A code = 75890-5) Glucose, UA (test Negative Negative code = 365) Ketones, UA (test Negative Negative code = 2514-8) Bilirubin, UA (test Negative Negative code = 15258-6) Blood, UA (test code Moderate Negative A = 43745-8) Nitrite, UA (test Negative Negative code = 5802-4) Leukocytes, UA (test Large Negative A code = 5799-2) Urobilinogen, UA 0.2 0.2-1.0 (test code = 71991-3) RBC, UA (test code = 34 See_Comment [Autom ated 02992-8) message] The system which generated this result [...] . Bacteria, UA (test Few code = 86114-8) Squam Epithel, UA See_Comment [Automate d (test code = 84767-8) messag e] The system which generated this result transmit bandar reference range : /HPF. The reference range was not used to interpret this result as normal/abnormal . Specimen Source (test code = 2795) ROBERT (test code = ROBERT) Railroad Operating Engineer ID - [auto]Railroad Operating Engineer ID - tech Lab Interpretation Abnormal (test code = 68282-2) [facility] Reflex to Culture 2022-05-18 16:12:56 Test Item Value Reference Range Interpretation Comments Color, UA (test code Yellow = 5778-6) Clarity, UA (test Hazy code = 5767-9) Specific [place], UA 1.045 1.001-1.035 H (test code = 5811-5) pH, UA (test code = 6.5 5.0-8.0 5803-2) Protein, UA (test 20 mg/dL Negative A code = 99179-3) Glucose, UA (test Negative Negative code = 365) Ketones, UA (test Negative Negative code = 2514-8) Bilirubin, UA (test Negative Negative code = 51664-2) Blood, UA (test code Moderate Negative A = 44130-9) Nitrite, UA (test Negative Negative code = 5802-4) Leukocytes, UA (test Large Negative A code = 5799-2) Urobilinogen, UA 0.2 0.2-1.0 (test code = 82941-1) RBC, UA (test code = 34 See_Comment [Autom ated 55557-6) message] The system which generated this result [...] . Bacteria, UA (test Few code = 44001-8) Squam Epithel, UA See_Comment [Automate d (test code = 20387-0) messag e] The system which generated this result transmit bandar reference range : /HPF. The reference range was not used to interpret this result as normal/abnormal . Specimen Source (test code = 2795) ROBERT (test code = ROBERT) Railroad Operating Engineer ID - [auto]Railroad Operating Engineer ID - tech Lab Interpretation Abnormal (test code = 62673-2) [facility] Reflex to Culture 2022-05-18 16:12:56 Test Item Value Reference Range Interpretation Comments Color, UA (test code Yellow = 5778-6) Clarity, UA (test Hazy code = 5767-9) Specific [place], UA 1.045 1.001-1.035 H (test code = 5811-5) pH, UA (test code = 6.5 5.0-8.0 5803-2) Protein, UA (test 20 mg/dL Negative A code = 11327-1) Glucose, UA (test Negative Negative code = 365) Ketones, UA (test Negative Negative code = 2514-8) Bilirubin, UA (test Negative Negative code = 57351-3) Blood, UA (test code Moderate Negative A = 35507-6) Nitrite, UA (test Negative Negative code = 5802-4) Leukocytes, UA (test Large Negative A code = 5799-2) Urobilinogen, UA 0.2 0.2-1.0 (test code = 35541-4) RBC, UA (test code = 34 See_Comment [Autom ated 79361-0) message] The system which generated this result [...] . Bacteria, UA (test Few code = 85110-2) Squam Epithel, UA See_Comment [Automate d (test code = 57746-6) messag e] The system which generated this result transmit bandar reference range : /HPF. The reference range was not used to interpret this result as normal/abnormal . Specimen Source (test code = 2795) ROBERT (test code = ROBERT) Railroad Operating Engineer ID - [auto]Railroad Operating Engineer ID - tech Lab Interpretation Abnormal (test code = 30467-3) [facility] Reflex to Culture 2022-05-18 16:12:56 Test Item Value Reference Range Interpretation Comments Color, UA (test code Yellow = 5778-6) Clarity, UA (test Hazy code = 5767-9) Specific [place], UA 1.045 1.001-1.035 H (test code = 5811-5) pH, UA (test code = 6.5 5.0-8.0 5803-2) Protein, UA (test 20 mg/dL Negative A code = 09824-4) Glucose, UA (test Negative Negative code = 365) Ketones, UA (test Negative Negative code = 2514-8) Bilirubin, UA (test Negative Negative code = 06411-0) Blood, UA (test code Moderate Negative A = 36923-4) Nitrite, UA (test Negative Negative code = 5802-4) Leukocytes, UA (test Large Negative A code = 5799-2) Urobilinogen, UA 0.2 0.2-1.0 (test code = 77361-8) RBC, UA (test code = 34 See_Comment [Autom ated 70518-9) message] The system which generated this result [...] . Bacteria, UA (test Few code = 36179-4) Squam Epithel, UA See_Comment [Automate d (test code = 19568-7) messag e] The system which generated this result transmit bandar reference range : /HPF. The reference range was not used to interpret this result as normal/abnormal . Specimen Source (test code = 2795) ROBERT (test code = ROBERT) Railroad Operating Engineer ID - [auto]Railroad Operating Engineer ID - tech Lab Interpretation Abnormal (test code = 63938-7) [facility] UR[facility] [id number] 16:12:56 Test Item Value Reference Range Interpretation [...] = 516) SOURCE(BEAKER) (test code = 2795) Railroad Operating Engineer ID - [auto]Railroad Operating Engineer ID - techPROTHROMBIN [id number] 16:02:01 Test Item Value Reference Range Interpretation Comments PROTIME (BEAKER) (test code = 25.8 seconds 11.9-14.2 H 759) INR (BEAKER) (test code = 370) 2.54 <=5.90 RECOMMENDED COUMADIN/WARFARIN INR THERAPY RANGESSTANDARD DOSE: 2.0 - 3.0 Includes: PROPHYLAXIS for venous thrombosis, systemic embolization; TREATMENT for venous thrombosis and/or pulmonary embolus.HIGH RISK: Target INR is 2.5-3.5 for patients with mechanical heart valves.CALCIUM, [id number] 13:31:38 Test Item Value Reference Range Interpretation [...] 0-0 (BEAKER) (test code = 413) POCT-GLUCOSE [id number] 13:07:25 Test Item Value Reference Range Interpretation Comments POC-GLUCOSE METER 81 mg/dL 70-110 : TESTED A T [facility] (BEAKER) (test code = JOSELITO LOZANO, 1538) 24747: 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 valarie ID = [id number] for Scarlet Maravilla B-TYPE NATRIURETIC FACTOR (BNP)2022-05-18 11:38:06 Test Item Value Reference Range Interpretation Comments B-TYPE NATRIURETIC PEPTIDE (BEAKER) 97 pg/mL 0-100 (test code = 700) Railroad Operating Engineer ID - FANTASMA [id number] 11:34:39 Test Item Value Reference Range Interpretation Comments FIBRINOGEN LEVEL (BEAKER) (test 440 mg/dl 225-434 H code = 658) [id number] 11:32:28 Test Item Value Reference Range Interpretation Comments LIPASE (BEAKER) (test code = 749) 13 U/L 8-78 Railroad Operating Engineer ID - FANTASMA BCOMPREHENSIVE METABOLIC [id number] 11:32:27 Test Item Value Reference Range Interpretation [...] not appl icable for dialysis patien ts Railroad Operating Engineer ID - FANTASMA [id number] 11:32:27 Test Item Value Reference Range Interpretation Comments MAGNESIUM (BEAKER) (test code = 1.7 mg/dL 1.6-2.6 627) Railroad Operating Engineer ID - FANTASMA [id number] 11:32:27 Test Item Value Reference Range Interpretation Comments PHOSPHORUS (BEAKER) (test code = 2.9 mg/dL 2.3-4.7 604) Railroad Operating Engineer ID - FANTASMA [id number] 11:21:21 Test Item Value Reference Range Interpretation [...] for patients with mechanical heart valves.LACTIC ACID, [id number] 11:20:59 Test Item Value Reference Range Interpretation Comments LACTATE BLOOD VENOUS (2) (BEAKER) 1.40 mmol/L 0.50-2.20 (test code = 2872) Railroad Operating Engineer ID - FANTASMA B Notes Date/Time Note Provider Source 2022-12-20 Formatting of this note might be differe nt from the original. Eliane Dinero MA [facility] [employer] 08:46:19-00:[address] Dan to repeat INR in 2 weeks, patient verbal understanding. 2022-12-20 [facility] 08:22:46-00:00 Refill request for warfarin received. Refill sent to pharmacy of choice. Patient is compliant as per [facility] Cardiology Protocol. Electronically signed by Birdie Jon MA a t 12/20/2022 8:22 AM CDT 2022-12-19 [facility] 14:36:13-00:00 2 wks Electronically signed by Jamaica Dan MD at 2:36 PM CDT 2022-12-19 Formatting of this note might be differe nt from the original. Sapna Klein RN [facility] 14:07:56-00:00 Dr Dan's response provided, Ms Price stated that she felt like 4 weeks to recheck INR seemed to be to long of a time to wait for to take the recheck Routed patient response to above concern Also asked for an appointmen t with EP. Routed to [facility] for scheduling with Dr Koroma 2022-12-18 [facility] 17:32:54-00:00 Ok, keep current dosage Electronically signed by Jamaica Dan MD at 5:33 PM CDT 2022-12-18 Formatting of this note might be differe nt from the original. Viviane Yang RN [facility] 16:41:46-00:00 Spoke with Stephenie [facility]. Patient verified that she has been taking warfarin 2 mg on 3 days and 1 mg on 4 days. She verbalized understanding : patient to continue same and recheck patient's INR in 4 weeks. No further questions. Electronically signed by Viviane Yang RN at 4:44 PM CDT 2022-12-18 Formatting of this note might be differe nt from the original. Fabiola Dinero [facility] 15:31:49-00:00 Emanuel Price is a 67 year old female Stephenie with [facility] is calling to request instructions for INR paperwork. Please assist [phone] Electronically signed by Fabiola Dinero at 12/18 3:33 PM T 2022-12-18 [facility] 15:03:15-00:00 Please see office visit on S eptember fifths for instructions. Please verify the dosage. I found some discrepancy. Electronically signed by Jamaica Dan MD at 3:03 PM CDT 2022-12-18 Formatting of this note might be differe nt from the original. Eliane Dinero MA [facility] 14:18:23-00:00 INR results received via fax from [facility] and placed in Dr Dan's folder. INR is 2.8 (12/18/2022) Current dose of Warfarin: Warfarin 2 mg - 3 times a week and 1 mg 4 times a week. Labs scanned into chart. T 2022-12-06 Formatting of this note might be differe nt from the original. Eliane Dinero MA [facility] 11:42:27-00:00 Notified Tobias with [facility] Care per Wilson Dan: INR is 2.6 Resume current dose (Warfarin 2mg 3 times a week and 1 mg 4 times a week) Repeat INR in 2 weeks Verbal understanding and stated she would notify patient. T 2022-12-06 Formatting of this note might be differe nt from the original. Lula Patel [facility] 10:07:04-00:00 Tobias with [facility] is requesting a call back in regards to the INR results. Please advise. Electronically signed by Lula Patel at 023 10:07 AM T 2022-12-05 Formatting of this note might be differe nt from the original. Ronal Henry [facility] 10:18:29-00:00 Lab results received from [facility]. Placed in provide r's box. Electronically signed by Ronal Henry at 10:18 AM T 2022-12-05 Formatting of this note might be differe nt from the original. Ronal Henry [facility] 08:55:21-00:00 Forms received from [facility]. Placed in provider's nate x. Electronically signed by Ronal Henry at 8:56 AM T 2022-11-30 Formatting of this note might be differe nt from the original. Sapna Klein RN [facility] 15:51:03-00:00 Spoke with [facility], continue current dosage Warfarin 2mg 3 days a week and 1mg 4 days a week Repeat INR in 1weeks, Verbalized understanding T 2022-11-30 Formatting of this note might be differe nt from the original. Lorena Rogers MA [facility] 15:47:12-00:00 Called patient for results p [...] Results informed via staff. Electronically signed by Lorean Rogers MA a t 11/30/2022 3:48 PM T 2022-11-30 [facility] 15:44:53-00:00 Please see office visit on November 30 for instruc tions Electronically signed by Jamaica Dan MD at 3:45 PM T 2022-11-30 Formatting of this note might be differe nt from the original. Sapna Klein RN [facility] 14:28:01-00:00 INR 3.5 Current dosage 2mg x 3 days 1mg x [address] Dan for advice 2022-11-30 Formatting of this note might be differe nt from the original. Susan Seymour [facility] 14:05:23-00:00 Emanuel Price is a 67 year old female Malvin Johansen Nurse calling stating [facility] IRN was elevated at 3.5 and they would like to have new orders and a call back from nurse to advise. Thank you 2022-11-26 Formatting of this note might be differe nt from the original. Viviane Yang RN [facility] 16:19:26-00:00 [facility] called [facility] when they need to [...] Yang RN at 4:24 PM CDT 2022-11-26 [facility] 08:45:38-00:00 Ok thanks Electronically signed by Jamaica Dan MD at 8:45 AM CDT 2022-11-26 [facility] 08:14:56-00:00 Please see other encounter 11/25/22. Electronically signed by Viviane Yang RN at 8:15 AM CDT 2022-11-26 Formatting of this note might be differe nt from the original. Viviane Yang RN [facility] 08:10:36-00:00 Spoke with [facility] PHILLIP Coker and with t he patient. Patient's INR on was 1.5 Patient states she restarted her warfarin on 11/13 07/05 and too 2 mg last night. Her dose prior to hospital a dmission was 1 mg on 3 days and 2 mg on 4 days of the week. [facility] states they will be rech ecking patient's INR temporarily until it stabilizes. [facility] phone # is . Routing to Dr. Dan. Electronically signed by Viviane Yang, PHILLIP at 8:14 AM T 2022-11-25 Formatting of this note might be differe nt from the original. Birgit Licea [facility] 09:58:57-00:00 Emaneul Price is a 67 year old female Nurse is calling to provide Lab work results to the Dr.Please call her Electronically signed by Birgit Licea at 10:01 AM CDT 2022-11-24 [facility] 23:09:08-00:00 If INR was 5.43 on November 22 , she should not start warfarin on November 24. She can start warfarin once INR is below 3. Please find out if patient already started warfarin. INR on November 26. Electronically signed by Jamaica Dan MD at 11:10 PM T 2022-11-23 [facility] 09:47:04-00:00 [facility] records received placed in Dr. Dan's folder Electronically signed by Viviane Yang RN at 9:47 AM T 2022-11-22 [facility] 17:03:35-00:00 Home health nurse calling to notify that patient was just discharged from [facility] today. She was discharged with orders for [...] can be faxed to Attn: Shandra [facility] is going to fax [facility] records to for Dr. Dan to review. Orders for INR checks faxed to [facility] so that they can perform INR checks on patient. Request that results be faxed to Dr. Dan for review. Electronically signed by Viviane Yang, RN at 8:26 AM CDT 2022-11-22 Formatting of this note might be differe nt from the original. Noa Yen [facility] 16:57:55-00:00 Emanuel Price is a 67 year old female Maryuri with [facility] is calling requesting t o speak with nurse regarding Coumadin. She states that patient was admitted and released from [facility] a couple of days ago. PTNR 2 - 3 Thanks! Electronically signed by Noa Yen at 01/2023 5:00 PM CDT 2022-11-12 Formatting of this note might be differe nt from the original. Lorena Rogers MA [facility] 13:38:22-00:00 Received office notes from [facility] will put on Dr. Dan desk for review. Electronically signed by Lorena Rogers MA a t 11/12/2022 1:42 PM CDT"
[2022-12-28 00:42] LABS: Absolute Lymphocytes (CBC) 1.6 K/uL (0.7-4.9); Hematocrit 36.9 % (36.0-45.0); MCV 94.6 fL (80-100); MPV 8.7 fL (7.6-11.3); Platelets 202 thou/uL (152-406)
[2022-12-28 00:49] LABS: Protime INR 2.65
[2022-12-28] MEDS ORDERED: METOPROLOL TAR 25 MG TAB ONE (00:51)
[2022-12-28] MEDS ORDERED: MAGNESIUM SULFATE 1 gm IVPB 1 GM/100 ML BAG IV ONE (00:52)
[2022-12-28 01:03] LABS: Potassium 3.9 mEq/L (3.5-5.1); Troponin High Sensitivity 10.8 pg/mL (<58.9)
[2022-12-28] MEDS ORDERED: ONDANSETRON 4 MG/2 ML VIAL ONE (01:53)
--- NOTE | 2022-12-28 02:29 | ER ---
Nurse's Notes [facility] Name: Michelle Saavedra Age: 67 yrs Sex: Female : 1955 Arrival Date: 12/27/2022 Time: 23:55 Bed 15 Private MD: Diagnosis: Paroxysmal atrial fibrillation Presentation: 12/28 00:03 Chief complaint: Patient states: CHRONIC BACK PAIN AND 3 HOUR PALPITATIONS. Coronavirus bp screen: At this time, the client does not indicate any symptoms associated with coronavirus-19. Ebola Screen: No symptoms or risks identified at this time. Initial Sepsis Screen: Does the patient meet any 2 criteria? No. Patient's initial sepsis screen is negative. Does the patient have a suspected source of infection? No. Patient's initial sepsis screen is negative. Risk Assessment: Do you want to hurt yourself or someone else? Patient reports no desire to harm self or others. Onset of symptoms was December 28, 2022. 00:03 Method Of Arrival: Ambulatory bp 00:03 Acuity: JAKUB 3 bp Triage Assessment: 00:03 General: Appears in no apparent distress. Behavior is cooperative, appropriate for age, bp anxious. Pain: Complains of pain in chest. EENT: No deficits noted. Neuro: No deficits noted. Cardiovascular: Reports chest pain. Respiratory: No deficits noted. GI: No signs and/or symptoms were reported involving the gastrointestinal system. : No signs and/or symptoms were reported regarding the genitourinary system. Derm: No deficits noted. Musculoskeletal: No deficits noted. Historical: - Allergies: 00:02 Morphine; bp - Home Meds: 00:02 Warfarin Oral [Active]; Metoprolol Tartrate Oral [Active]; bp - PMHx: 00:02 Atrial fibrillation; Hypercholesterolemia; Hypertensive disorder; mechanical valve; bp - Immunization history:: Adult Immunizations up to date. - Social history:: Smoking status: Patient reports the use of cigarette tobacco products, unknown amount. - Family history:: not pertinent. - Hospitalizations: : No recent hospitalization is reported. Screenin:05 [facility] ED Fall Risk Assessment (Adult) History of falling in the last 3 months, bp including since admission No falls in past 3 months (0 pts). Abuse screen: Denies threats or abuse. Denies injuries from another. Nutritional screening: No deficits noted. Tuberculosis screening: No symptoms or risk factors identified. Assessment: 00:05 General: SEE TRIAGE NOTE. bp 01:01 Pain: Pain does not radiate. Pain began 1 day ago. jw7 01:40 General: pt c/o nausea, provider notified . as6 02:44 Reassessment: Patient appears in no apparent distress at this time. Patient and/or jw7 family updated on plan of care and expected duration. Pain level reassessed. Patient is alert, oriented x 3, equal unlabored respirations, skin warm/dry/pink. Patient states symptoms have improved. Vital Signs: 00:03 Weight 45.81 kg; Height 5 ft. 3 in. ; bp 00:08 BP 100 / 69; Pulse 104; Resp 18; Temp 98.2; Pulse Ox 100% ; bp 00:45 BP 120 / 51; Pulse 70; Resp 12 S; Pulse Ox 100% on R/A; jw7 01:46 BP 124 / 56; Pulse 63; Resp 19 S; Pulse Ox 100% on R/A; as6 02:30 BP 109 / 63; Pulse 54; Resp 18 S; Pulse Ox 100% on R/A; jw7 00:03 Body Mass Index 17.89 (45.81 kg, 160.02 cm) bp ED Course: 12/27 23:57 Patient arrived in ED. jj6 09 00:03 Arm band placed on. bp 00:04 Triage completed. bp 00:05 Patient has correct armband on for positive identification. bp 00:09 Ean Dumont MD is Attending Physician. rn 00:36 Rekha Marin RN is Primary Nurse. jw7 00:36 Inserted saline lock: 20 gauge in right forearm, using aseptic technique. Blood as6 collected. 01:00 Client placed on continuous cardiac and pulse oximetry monitoring. NIBP monitoring jw7 applied. 01:00 Patient maintains SpO2 saturation greater than 95% on room air. jw7 01:12 XRAY Chest (1 view) In Process Unspecified. EDMS 02:44 Provided Education on: discharge instructions. jw7 02:44 No provider procedures requiring assistance completed. IV discontinued, intact, jw7 bleeding controlled, No redness/swelling at site. Pressure dressing applied. Administered Medications: 00:57 Drug: Magnesium Sulfate IVPB 1 grams Route: IVPB; Infused Over: 1 hrs; Site: right jw7 antecubital; 02:42 Follow up: Response: No adverse reaction; IV Status: Completed infusion; IV Intake: jw7 100ml 00:58 Not Given (Hemodynamic Parameters): Metoprolol PO 12.5 mg PO once jw7 01:46 Drug: Ondansetron IVP 4 mg Route: IVP; Site: right forearm; as6 02:42 Follow up: Response: No adverse reaction jw7 02:43 Follow up: Response: No adverse reaction jw7 02:42 Drug: [place] PO 10 mg-325 mg 1 tabs Route: PO; jw7 02:42 Follow up: Response: No adverse reaction jw7 Medication: 00:05 VIS not applicable for this client. bp Intake: 02:42 IV: 100ml; Total: 100ml. jw7 Outcome: 02:28 Discharge ordered by . rn 02:44 Discharged to home via wheelchair, with friend. jw7 02:44 Condition: stable 02:44 Discharge instructions given to patient, Instructed on discharge instructions, follow up and referral plans. Demonstrated understanding of instructions, follow-up care. 02:45 Patient left the ED. jw7 Signatures: Dispatcher [employer] EDMS Ean Dumont MD MD rn Peltier, Brian RN RN Rachelle Parker jj6 Lexx Santoro RN RN as6 Rekha Marin RN RN jw7
--- NOTE | 2022-12-28 02:29 | EDPHYS ---
Physician Documentation [facility] Name: Michelle Saavedra Age: 67 yrs Sex: Female : 1955 Arrival Date: 12/27/2022 Time: 23:55 Bed 15 Private MD: ED Physician Ean Dumont HPI: 12/28 01:58 This 67 yrs old Female presents to ER via Ambulatory with complaints of rn Palpitations, Low Back Pain. 01:58 The patient presents with a history of heart racing. Onset: The symptoms/episode rn began/occurred 3 hour(s) ago. Duration: The patient or guardian reports a single episode, that is still ongoing. Modifying factors: The symptoms are aggravated by nothing. The symptoms are alleviated by nothing. Associated signs and symptoms: Pertinent negatives: SOB, syncope, vertigo, vomiting. Severity of symptoms: At their worst the symptoms were mild in the emergency department the symptoms are unchanged. The patient has experienced similar episodes in the past. Patient presents with palpitations and fast heart rate. Has known atrial fibrillation. Takes metoprolol. Compliant with medication. Reports mild chest pain. No shortness of breath. Does not feel ill. No fever. Also request Dilaudid for her chronic back pain without any acute changes or injury.. Historical: - Allergies: 00:02 Morphine; bp - Home Meds: 00:02 Warfarin Oral [Active]; Metoprolol Tartrate Oral [Active]; bp - PMHx: 00:02 Atrial fibrillation; Hypercholesterolemia; Hypertensive disorder; mechanical valve; bp - Immunization history:: Adult Immunizations up to date. - Social history:: Smoking status: Patient reports the use of cigarette tobacco products, unknown amount. - Family history:: not pertinent. - Hospitalizations: : No recent hospitalization is reported. ROS: 01:58 Constitutional: Negative for fever, chills, and weight loss, Eyes: Negative for injury, rn pain, redness, and discharge, Neck: Negative for injury, pain, and swelling, Cardiovascular: Positive for chest pain and palpitations Respiratory: Negative for shortness of breath, cough, wheezing, and pleuritic chest pain, Abdomen/GI: Negative for abdominal pain, nausea, vomiting, diarrhea, and constipation, MS/Extremity: Negative for injury and deformity, Skin: Negative for injury, rash, and discoloration, Neuro: Negative for headache, weakness, numbness, tingling, and seizure. Exam: 01:58 Constitutional: This is a well developed, well nourished patient who is awake, alert, rn and in no acute distress. Head/Face: Normocephalic, atraumatic. Cardiovascular: Tachycardic, irregular rhythm. No pulse deficits. Respiratory: Speaking full sentences, unlabored. No increased work of breathing, no retractions or nasal flaring. Abdomen/GI: Soft, non-tender Skin: Warm, dry MS/ Extremity: Pulses equal, no cyanosis. Neuro: Awake and alert, GCS 15 02:18 ECG was reviewed by the Attending Physician. rn Vital Signs: 00:03 Weight 45.81 kg; Height 5 ft. 3 in. ; bp 00:08 BP 100 / 69; Pulse 104; Resp 18; Temp 98.2; Pulse Ox 100% ; bp 00:45 BP 120 / 51; Pulse 70; Resp 12 S; Pulse Ox 100% on R/A; jw7 01:46 BP 124 / 56; Pulse 63; Resp 19 S; Pulse Ox 100% on R/A; as6 02:30 BP 109 / 63; Pulse 54; Resp 18 S; Pulse Ox 100% on R/A; jw7 00:03 Body Mass Index 17.89 (45.81 kg, 160.02 cm) bp MDM: 00:09 Patient medically screened. rn 02:18 ED course: Patient converted to sinus bradycardia. Troponin negative. Will DC home with rn return precautions.. 02:25 Differential diagnosis: arrythmia, dehydration. Differential diagnosis: chronic back rn pain. Data reviewed: vital signs, nurses notes. Counseling: I had a detailed discussion with the patient and/or guardian regarding the historical points, exam findings, and any diagnostic results supporting the discharge/admit diagnosis, lab results, radiology results, the need for outpatient follow up, to return to the emergency department if symptoms worsen or persist or if there are any questions or concerns that arise at home. Special discussion: I discussed with the patient/guardian in detail that at this point there is no indication for admission to the hospital. It is understood, however, that if the symptoms persist or worsen the patient needs to return immediately for re-evaluation. 12/28 00:15 Order name: Basic Metabolic Panel; Complete Time: 01:04 rn 12/28 00:15 Order name: CBC with Diff; Complete Time: 00:58 rn 12/28 00:15 Order name: NT PRO-BNP; Complete Time: 01:04 rn 12/28 00:15 Order name: PT-INR; Complete Time: 00:58 rn 12/28 00:15 Order name: Troponin HS; Complete Time: 01:04 rn 12/28 00:15 Order name: XRAY Chest (1 view) rn 12/28 00:15 Order name: EKG; Complete Time: 00:16 rn 12/28 00:15 Order name: Cardiac monitoring; Complete Time: 00:36 rn 12/28 00:15 Order name: EKG - Nurse/Tech; Complete Time: 00:23 rn 12/28 00:15 Order name: IV Saline Lock; Complete Time: 00:36 rn 12/28 00:15 Order name: Labs collected and sent; Complete Time: 00:36 rn 12/28 00:15 Order name: O2 Per Protocol; Complete Time: 00:36 rn 12/28 00:15 Order name: O2 Sat Monitoring; Complete Time: 00:36 rn EC:18 Rate is 47 beats/min. Rhythm is regular. QRS [place] is Normal. IA interval is normal. QRS rn interval is normal. QT interval is normal. No Q waves. T waves are Normal. No ST changes noted. Clinical impression: Sinus bradycardia. Interpreted by me. Reviewed by me. Administered Medications: 00:57 Drug: Magnesium Sulfate IVPB 1 grams Route: IVPB; Infused Over: 1 hrs; Site: right jw7 antecubital; 02:42 Follow up: Response: No adverse reaction; IV Status: Completed infusion; IV Intake: jw7 100ml 00:58 Not Given (Hemodynamic Parameters): Metoprolol PO 12.5 mg PO once jw7 01:46 Drug: Ondansetron IVP 4 mg Route: IVP; Site: right forearm; as6 02:42 Follow up: Response: No adverse reaction jw7 02:43 Follow up: Response: No adverse reaction jw7 02:42 Drug: [place] PO 10 mg-325 mg 1 tabs Route: PO; jw7 02:42 Follow up: Response: No adverse reaction jw7 Disposition Summary: 12/28/22 02:28 Discharge Ordered Location: Home rn Problem: new rn Symptoms: have improved rn Condition: Stable rn Diagnosis - Paroxysmal atrial fibrillation rn Followup: rn - With: Private Physician - When: As needed - Reason: Recheck today's complaints, Re-evaluation by your physician Discharge Instructions: - Discharge Summary Sheet rn - Atrial Fibrillation rn Forms: - Medication Reconciliation Form rn - Thank You Letter rn - Antibiotic pattern chain builder - Prescription Opioid Use rn - Patient Portal Instructions rn - Leadership Thank You Letter rn Signatures: Dispatcher [employer] Ean Sharma MD MD rn Peltier, Brian RN RN Lexx Mcgrath RN RN as6 Rekha Marin RN RN jw7
[2022-12-28] MEDS ORDERED: HYDROCODONE/APAP 10/325 TAB ONE (02:46)
[2022-12-28 03:22] VITALS: TEMP 98.2; O2SAT 100
[2022-12-28 03:28] VITALS: BP 109/63
--- NOTE | 2022-12-28 16:32 | EKG ---
Test Date: 2022-12-28 Test Time: 01:44:23 Executive Relations Specialist: MEASUREMENT RESULTS: Intervals: Rate: 47 CO: 204 QRSD: 110 QT: 494 QTc: 437 [place]: P: 88 CO: 204 QRS: 61 T: 50 INTERPRETIVE STATEMENTS: Marked sinus bradycardia Abnormal ECG Compared to ECG 12/28/2022 00:07:07 Atrial fibrillation no longer present ST (T wave) deviation no longer present Electronically Signed On 12-28-22 16:31:17 CDT by Jam Bolanos
--- NOTE | 2022-12-28 16:32 | EKG ---
Test Date: 2022-12-28 Test Time: 00:07:07 Legislators: VISHAL MEASUREMENT RESULTS: Intervals: Rate: 102 MT: QRSD: 110 QT: 368 QTc: 479 [place]: P: MT: QRS: 66 T: 36 INTERPRETIVE STATEMENTS: Atrial fibrillation Nonspecific ST abnormality, probably digitalis effect Abnormal ECG Compared to ECG 12/20/2022 22:10:31 No significant changes Electronically Signed On 12-28-22 16:31:23 CDT by Jam Bolanos
--- NOTE | 2022-12-28 18:32 | RAD REPORT ---
EXAM DESCRIPTION: RAD - Chest Single View - 12/28/2022 1:11 am CLINICAL HISTORY: PALPITATIONS COMPARISON: 12/20/2022 FINDINGS: Single frontal radiograph view of the chest. Cardiomediastinal silhouette: Atherosclerotic calcification of thoracic aorta. Heart is not enlarged. Leads overlie the chest. Prior median sternotomy. Lungs: No consolidation, pneumothorax, or pleural effusion. Stable senescent changes. Bones: Degenerative change of the spine and shoulders. Upper abdomen: No abnormality identified. IMPRESSION: 1. No acute pulmonary process identified. Electronically signed by: Sean Taylor 12/28/2022 1:46 AM CDT Due to temporary technical issues with the PACS/Fluency reporting system, reports are being signed by the in house radiologists without review as a courtesy to insure prompt reporting. The interpreting radiologist is fully responsible for the content of the report.
== END 2022-12-28 02:45 | disposition home or self-care (01) ==
LOC: ER 23:55
DX: I48.0 Paroxysmal atrial fibrillation (principal); Z79.01 Long term (current) use of anticoagulants; I10 Essential (primary) hypertension; Z72.0 Tobacco use; Z88.5 Allergy status to narcotic agent
CPT/HCPCS: 96365; 93005 ×2; 85025; 80048; 36415; 85610; 84484; 83880; 71045; 96375; 99285; 96366; J3475; J2405

== ENCOUNTER 2023-02-23 20:37 | Emergency (ER) | payer OTHER ==
--- OUTSIDE RECORDS SUMMARY | 2023-02-23 20:55 | XMS REPORT | Continuity of Care Document ---
:1955 [facility] t Address [address] [facility] [address] [place] [address] Care Team Providers Name Role Phone Daniel Ibrahim Primary Care Physician DANIEL IBRAHIM Attending Clinician Unavailable Saurabh Dobson Attending Clinician Unavailable MARIIA CARDONA Attending Clinician Unavailable MARIIA CARDONA Attending Clinician Unavailable REBECA HOLCOMB Attending Clinician Unavailable REBECA HOLCOMB Attending Clinician Unavailable GEETA KOROMA Attending Clinician Unavailable GEETA KOROMA Attending Clinician Unavailable JAMAICA DAN Attending Clinician Unavailable Jamaica Dan MD Attending Clinician Pob, [facility] Attending Clinician Unavailable Georgie Gamez RN Attending Clinician Unavailable RAO CHILDS Attending Clinician Unavailable Mazin Merrill MD Attending Clinician Rao Childs DO Attending Clinician Jeremy Mulligan RN Attending Clinician Unavailable Babita Iglesias NP Attending Clinician Alicia Smith MD Attending Clinician Doctor Unassigned, [place] Attending Clinician Unavailable WAYNE RABAGO Attending Clinician Unavailable Yolande Santacruz MD Attending Clinician JOSEPH CORTES Attending Clinician Unavailable Joseph Cortes MD Attending Clinician Hima LOVELL, Wayne Attending Clinician MEAGHAN MONTANA Attending Clinician Unavailable Santos LOVELL, Sean Granda Attending Clinician [phone] Joey LOVELL, Vinayak Evans Attending Clinician Lynnette LOVELL, Shadi Jhaveri Attending Clinician [phone] Latasha LOVELL, Franc Calles Attending Clinician Angela LOVELL, Purnima Attending Clinician Benedicto LOVELL, Benjamin Attending Clinician Meaghan Montana MD Attending Clinician 1, [facility] Attending Clinician Unavailable YOLANDE SANTACRUZ Attending Clinician Unavailable Josemanuel LOVELL, Carmen Attending Clinician Ricky RODRÍGUEZ Attending Clinician Unavailable Ricky Ibarra Attending Clinician JOSE VILLA Attending Clinician Unavailable Jose Garduno Attending Clinician CALEB RODRIGUES Attending Clinician Unavailable Jamie Deng DO Attending Clinician Caleb Rodrigues MD Attending Clinician JENNIFER LO Attending Clinician Unavailable Jennifer Lo MD Attending Clinician RADHA MCDOWELL Attending Clinician Unavailable NICK IZQUIERDO Attending Clinician Unavailable RADIOLOGY Attending Clinician Unavailable ALICJA MCDERMOTT Attending Clinician Unavailable WAYNE RABAGO Admitting Clinician Unavailable RAO CHILDS Admitting Clinician Unavailable Rao Childs DO Admitting Clinician ALICIA SMITH Admitting Clinician Unavailable Alicia Smith MD Admitting Clinician MARIIA CARDONA Admitting Clinician Unavailable VINAYAK JENKINS Admitting Clinician Unavailable REBECA HOLCOMB Admitting Clinician Unavailable CALEB RODRIGUES Admitting Clinician Unavailable Lilia LOVELL, Caleb Admitting Clinician JENNIFER LO Admitting Clinician Unavailable Jennifer Lo MD Admitting Clinician Payers Payer Name Policy Type Policy Number Effective Date Expiration Date Judi hamilton [facility] DUAL [id number] 2020 COMP HMO D SNP 00:00:00 [facility] [id number] 2013 PLUS 00:00:00 MEDICAID [facility] [id number] 2023 00:00:00 [facility] MEDIC[facility] [id number] 2020 00:00:00 [facility] [id number] 2022 PLAN 00:00:00 Problems Condition Condition Condition Status Onset Resolution Last Treating Co mments Source Name Details Category Date Date Treatment Clinician Date Chest Chest Disease Active 2022-04 [facility] pain, pain, 0-21 ity of unspecifie [place] type d type 00 Medical Branch Anemia due Anemia due Disease Active U nivers to chronic to chronic 9-24 it y of blood [place] blood loss 00:[place] 00 [place] Anxiety Anxiety Disease Active Univers 9-24 ity of 00:00: [place] 00 Medical Branch Chronic Chronic Disease Active Univers pain pain 9-24 ity of 00:00: [place] 00 Medical Branch Insomnia Insomnia Disease Active Unive rs 9-24 ity of 00:00: [place] 00 Medical Branch Senile Senile Disease Active Univers dementia dementia 9-24 ity of with with 00:00: [place] depression depression 00 Ut dical Branch Fall, Fall, Disease Active Univers initial initial 9-24 ity of encounter encounter 00:00: Jose Elias manzo 00 Medical Branch Diarrhea Diarrhea Disease Active Unive rs 9-07 ity of 00:00: [place] 00 Medical Branch 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 00:00: [place] with with 00 Medical preserved preserved Bran ch ejection ejection fraction fraction 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[place] aorta aorta 00 [facility] Personal Personal Disease Active Unive rs history of history of 4-18 it y of other other 00:00: [place] mental and mental and 00 Me dical behavioral behavioral Br anch disorders disorders History of History of Disease Active U terri heart heart 3-21 ity of valve valve 00:00: [place] replacemen replacemen 00 Me dical t with t with Branch mechanical mechanical valve valve Ventricula Ventricula Disease Active U sylvesterers r r 2-22 ity of fibrillati fibrillati 00:00: [place] on on Medical Branch Acute Acute Disease Active Univers blood loss blood loss 2-07 it y of anemia anemia 00:00: [place] 00 [facility] Branch S/P AVR S/P AVR Disease Active Univers (aortic (aortic 2-07 ity of valve valve 00:00: [place] replacemen replacemen 00 Me dical t) t) Branch Suprathera Suprathera Disease Active [facility] peutic INR peutic INR 2-07 Yady kes 00:00: [facility] 00 Center Fall Fall [facility] Acute Acute Disease Active Univers upper GI upper GI 2-03 ity of bleed bleed 00:00: [place] Medical Branch GI bleed GI bleed Disease Active [facility] [...] 2020-04 U nivers 1-17 ity of 00:00: [place] 00 [facility] Branch Elevated Elevated Disease Active 2020-04 Unive [...] nivers ated ated 8-20 ity of 00:00: [place] Medical [facility] Coronary Coronary Disease Active Unive rs artery artery 8-20 ity of disease disease 00:00: [place] involving involving 00 [place] coronary coronary artery of artery of [place] 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 8-20 ity of disease disease 00:00: [place] involving involving 00 Medi [place] [facility] coronary coronary artery of artery of [place] 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 2-20 ity of disease disease 00:00: [place] involving involving 00 Medi [place] [facility] heart heart without without angina [...] ity of 00:00: [place] 00 Medical Branch NO KNOWN Drug Active Univers ALLERGIE Class ity of S [facility] Family History Family Member Diagnosis Comments Start Date Stop Date Source Natural mother Diabetes [facility] Natural mother Heart [facility] Other Diabetes [facility] Natural sister Cancer [facility] Natural sister Diabetes [facility] Social History Social Habit Start Date Stop Date Quantity Comments Source History SDOH Social Unive rsity of Connections [facility] Med ical Together Branch History SDOH Social Unive rsity of Connections [facility] Medical Branch History SDOH Social Unive rsity of Connections [place] [facility] Membership Branch History SDOH Social Unive rsity of Connections [place] [facility] Meetings Branch Gender identity [facility] Sexual orientation Univer [facility] Exposure to 2022-08-18 2022-08-28 Not sure University SARS-CoV-2 (event) 00:00:00 12:47:00 [place] [facility] History SDOH 2022-06-07 2022-06-07 1 University o f Alcohol Frequency 00:00:00 00:00:00 [place] M edical Branch History SDOH 2022-06-07 2022-06-07 0 University o f Alcohol Std Drinks 00:00:00 00:00:00 [place] [facility] History SDOH 2022-06-07 2022-06-07 1 University o f Alcohol Binge 00:00:00 00:00:00 [place] Medic al Branch History SDOH Social 2022-06-07 2022-06-07 5 Unive rsity of Connections Phone 00:00:00 00:00:00 [place] M edical Branch History SDOH Social 2022-06-07 2022-06-07 4 Unive rsity of Connections Living 00:00:00 00:00:00 [place] [facility] History SDFL 2022-06-07 2022-06-07 0 University o f Physical Activity 00:00:00 00:00:00 [facility] edical DPW Branch History SDFL 2022-06-07 2022-06-07 0 University o f Physical Activity 00:00:00 00:00:00 [facility] edical MPS Branch History SDFL 2022-06-07 2022-06-07 5 University o f Financial 00:00:00 00:00:00 [place] [facility] History SDFL Food 2022-06-07 2022-06-07 1 Univers ity of Worry 00:00:00 00:00:00 [place] [facility] History SDFL Food 2022-06-07 2022-06-07 1 Univers ity of Scarcity 00:00:00 00:00:00 [place] [facility] History SDFL 2022-06-07 2022-06-07 2 University o f Transport Med 00:00:00 00:00:00 [place] Medic al Branch History [facility] 2022-06-07 2022-06-07 2 University o f Transport Non-Med 00:00:00 00:00:00 [facility] edical Branch Education 2022-06-06 2022-06-06 14 University of 00:00:00 00:00:00 [place] [facility] Tobacco use and 2022-06-06 2022-06-06 Smokeless Universit y of exposure 00:00:00 00:00:00 tobacco non-user [facility] dical Branch Alcohol intake 2022-05-19 2022-05-19 Ex-drinker [facility] 00:[facility] 00:00:00 (finding) Medical Center History [facility] 2022-05-18 2022-05-[address] [facility] Unable to 00:00:00 00:00:00 Medical Center Pay History [facility] 2022-05-18 2022-05-[address] [facility] Housing Places 00:00:00 00:00:00 Medical Ce nter Lived History [facility] 2022-05-18 2022-05-[address] [facility] Housing Homeless 00:00:00 00:00:00 Medical Center Last Year History of Social 2021-02-27 2021-02-27 Univers ity of function 00:00:00 00:00:00 [facility] Sex [birth year] At [birth year] Alfonso Sanches 00:00:00 00:00:00 Medical Center Smoking Status Start Date Stop Date Source Never smoked tobacco [facility] Medications Ordered Filled Start Stop Current Ordering Indication Dosage Frequency Signature Comments Components Source Medication Medication Date Date Medication? Clinician (SIG) Name Name warfarin 2022-04 Yes [id number] 2mg Un chong mg tablet 0-27 3x/week ity of 00:00: 1mg [place] [address] 4x/week Medical Branch warfarin 1 2022-04 Yes [id number] 2mg Un chong mg tablet 0-27 3x/week ity of 00:00: 1mg [place] 4x/week Medical Branch warfarin 1 2022-04 Yes [id number] 2mg Un chong mg tablet 0-27 3x/week ity of 00:00: 1mg [place] [address] 4x/week Medical Branch warfarin 1 2022-04 Yes [id number] 2mg Un chong mg tablet 0-27 3x/week ity of 00:00: 1mg [place] [address] 4x/week Medical Branch amiodarone 2022-04- Yes [id number] 200mg Take 1 Univers 200 mg 0-23 11-23 tablet by ity of tablet 00:00: 05:59 mouth in [place] 00 :00 [facility] for 30 days. amiodarone 2022-04- Yes [id number] 200mg Take 1 Univers 200 mg 0-23 11-23 tablet by ity of tablet 00:00: 05:59 mouth in [place] 00 :00 [facility] for 30 days. amiodarone 2022-04- Yes [id number] 200mg Take 1 Univers 200 mg 0-23 11-23 tablet by ity of tablet 00:00: 05:59 mouth in [place] 00 :00 [facility] for 30 days. amiodarone 2022-04- Yes [id number] 200mg Take 1 Univers 200 mg 0-23 11-23 tablet by ity of tablet 00:00: 05:59 mouth in [place] 00 :00 [facility] for 30 days. amiodarone 2022-04- Yes [id number] 200mg Take 1 Univers 200 mg 0-23 -23 tablet by ity of tablet 00:00: 05:59 mouth in [place] 00 :00 the Medical morning Branch for 30 days. amiodarone 2022-04- Yes [id number] 200mg Take 1 Univers 200 mg 0-23 11-23 tablet by ity of tablet 00:00: 05:59 mouth in [place] 00 :00 the [facility] Branch for 30 days. amiodarone 2022-04- Yes [id number] 200mg Take 1 Univers 200 mg 0-23 -23 tablet by ity of tablet 00:00: 05:59 mouth in [place] 00 :00 the [facility] for 30 days. pantoprazol 2022-04 Yes 40mg 40 mg, Univ ers e 0-22 Oral, ity of (PROTONIX) 14:00: DAILY, [place] EC tablet 00 First dose Medi tyrone 40 mg on [facility] 02/03/23 at 0900, Until Discontinu ed, Routine ezetimibe 2022-04 Yes 10mg 10 mg, Univer s (ZETIA) 0-22 Oral, ity of tablet 10 14:00: DAILY, [place] mg 00 First dose Medical on [facility] 02/03/23 at 0900, Until Discontinu ed, Routine aspirin 2022-04 Yes 81mg 81 mg, Univers chewable 0-22 Oral, ity of tablet 81 14:00: DAILY, [place] mg 00 First dose Medical on [facility] 02/03/23 at 0900, Until Discontinu ed, Routine amiodarone 2022-04 Yes 200mg 200 mg, Uni vers (PACERONE) 0-22 Oral, ity of tablet 200 14:00: DAILY, [place] mg 00 First dose Medical on [facility] 02/03/23 at 0900, Until Discontinu ed, Routine ondansetron 2022-04 Yes 4mg 4 mg, Slow Univers (ZOFRAN 0-22 IV Push, ity of (PF)) 04:29: Q6HPRN, [place] injection 4 42 Nausea and Me dical mg Vomiting Branch (N/V), Starting on 02/02/23 at 2329
Do ses of ondansetro n 16 mg and above need to be administer ed via IV piggyback. For Dose >=24mg ECG monitoring is advisable.
atorvastati 2022-04 Yes 80mg 80 mg, Univ ers n (LIPITOR) 0-22 Oral, QHS, it y of tablet 80 02:00: First dose [place] mg 00 on [facility] 02/02/23 Branch at 2100, Until Discontinu ed, Routine metoprolol 2022-04 Yes 37.5mg 37.5 mg, U nivers tartrate 0-22 Oral, BID, ity o f (LOPRESSOR) 01:00: First dose [place] tablet 37.5 00 on [facility] Medica l mg 02/02/23 Branch at 2000, Until Discontinu ed gabapentin 2022-04 Yes 300mg 300 mg, Uni vers (NEURONTIN) 0-22 Oral, TID, it y of capsule 300 01:00: First dose [place] mg 00 on [facility] 02/02/23 Branch at 2000, Until Discontinu ed, Routine ketorolac 2022-04- No 15mg 15 mg, Unive rs (TORADOL) 0-02-02 Slow IV ity of injection 22:15: 21:36 Push, [place] 15 mg 00 :00 ONCE, 1 Medical dose, On Branch [facility] 02/02/23 at 1715, Routine zolpidem 2022-04 Yes 10mg 10 mg, Univers (AMBIEN) 0-21 Oral, ity of tablet 10 21:25: QHSPRN, [place] mg 46 Starting Medical on [facility] Branch 02/02/23 at 1625, Until Discontinu ed, Routine, Insomnia nitroglycer 2022-04 Yes .4mg 0.4 mg, Uni vers in 0-21 Sublingual ity of (NITROSTAT) 20:56: , Q5MIN Babak as sublingual 06 PRN, Medical tablet 0.4 Starting Branc h mg on [facility] 02/02/23 at 1556, Until Discontinu ed, Routine, Chest pain phytonadion 2022-04- No 2.5mg 2.5 mg, U nivers e (vitamin 0-02-02 Oral, ity of K1) 20:30: 21:33 ONCE, 1 [place] (MEPHYTON) 00 :00 dose, On Medic al tablet 2.5 [facility] Branch mg 02/02/23 at 1530, Routine HYDROcodone 2022-04 Yes 1{tbl} 1 tablet, Univers -acetaminop 0-21 Oral, ity of hen (NORCO) 19:36: Q8HPRN, Babak as 10-325 mg 11 Starting Medica l tablet 1 on Sat Branch tablet 02/02/23 at 1436, Until Discontinu ed, Routine, Pain (scale 7-10) acetaminoph 2022-04 Yes 650mg 650 mg, Un chong en 0-21 Oral, ity of (TYLENOL) 19:32: Q6HPRN, [place] tablet 650 20 Starting Medic al mg on Sat Branch 02/02/23 at 1432, Until Discontinu ed, Routine, Pain (scale 1-3) amiodarone 2022-04 Yes [id number] Please Univers 200 mg 0-02 take 200 ity of tablet 00:00: mg twice [place] 00 daily for Medical 2 weeks Branch (01/14/23 - 01/28/23) then take 200 mg once daily afterwards . amiodarone 2022-04 Yes [id number] Please Univers 200 mg 0-02 take 200 ity of tablet 00:00: mg twice [place] 00 daily for Medical 2 weeks Branch (01/14/23 - 01/28/23) then take 200 mg once daily afterwards . amiodarone 2022-04 Yes [id number] Please Univers 200 mg 0-02 take 200 ity of tablet 00:00: mg twice [place] 00 daily for Medical 2 weeks Branch (01/14/23 - 01/28/23) then take 200 mg once daily afterwards . amiodarone 2022-04 Yes [id number] Please Univers 200 mg 0-02 take 200 ity of tablet 00:00: mg twice [place] 00 daily for Medical 2 weeks Branch (01/14/23 - 01/28/23) then take 200 mg once daily afterwards . amiodarone 2022-04 Yes [id number] Please Univers 200 mg 0-02 take 200 ity of tablet 00:00: mg twice [place] 00 daily for Medical 2 weeks Branch (01/14/23 - 01/28/23) then take 200 mg once daily afterwards . amiodarone 2022-04 Yes [id number] Please Univers 200 mg 0-02 take 200 ity of tablet 00:00: mg twice [place] 00 daily for Medical 2 weeks Branch (01/14/23 - 01/28/23) then take 200 mg once daily afterwards . amiodarone 2022-04 Yes [id number] Please Univers 200 mg 0-02 take 200 ity of tablet 00:00: mg twice [place] 00 daily for Medical 2 weeks Branch (01/14/23 - 01/28/23) then take 200 mg once daily afterwards . amiodarone 2022-04 Yes [id number] Please Univers 200 mg 0-02 take 200 ity of tablet 00:00: mg twice [place] 00 daily for Medical 2 weeks Branch (01/14/23 - 01/28/23) then take 200 mg once daily afterwards . amiodarone 2022-04 Yes [id number] Please Univers 200 mg 0-02 take 200 ity of tablet 00:00: mg twice [place] 00 daily for Medical 2 weeks Branch (01/14/23 - 01/28/23) then take 200 mg once daily afterwards . amiodarone 2022-04 Yes [id number] Please Univers 200 mg 0-02 take 200 ity of tablet 00:00: mg twice [place] 00 daily for Medical 2 weeks Branch (01/14/23 - 01/28/23) then take 200 mg once daily afterwards . amiodarone 2022-04- No [id number] Please Univers 200 mg 0-02 02-03 take 200 ity of tablet 00:00: 00:00 mg twice [place] 00 :00 daily for Medical 2 weeks Branch (01/14/23 - 01/28/23) then take 200 mg once daily afterwards . warfarin 2022-04 Yes 2mg 2 mg, Univers (COUMADIN) 0-01 Oral, ity of tablet 2 mg 22:00: QSUNDAY AT [place] 00 1700, Medical First dose Branch (after last reorder) on 01/13/23 at 1700, Until Discontinu ed, Routine
INR Goal Range: 2-3
IND ICATION (More than one indication for warfarin can be selected): Mechanical AVR warfarin Yes 1mg 1 mg, Univers (COUMADIN) 9-30 Oral, QSAT ity of tablet 1 mg 22:00: AT 1700, [place] 00 First dose Medical on Sat Branch 01/12/23 at 1700, Until Discontinu ed, Routine
INR Goal Range: 2-3
IND ICATION (More than one indication for warfarin can be selected): Atrial fibrillati on/flutter aspirin 81 2023-0 Yes 81mg Take 1 Unive rs mg chewable 9-30 tablet by ity of tablet 00:00: mouth in [place] 00 the Medical morning. Branch pantoprazol 2023-0 Yes 40mg Take 1 Univ ers e 40 mg EC 9-30 tablet by ity of tablet 00:00: mouth in [place] 00 the Medical morning. Branch aspirin 81 2023-0 Yes 81mg Take 1 Unive rs mg chewable 9-30 tablet by ity of tablet 00:00: mouth in [place] 00 the Medical morning. Branch pantoprazol 2023-0 Yes 40mg Take 1 Univ ers e 40 mg EC 9-30 tablet by ity of tablet 00:00: mouth in [place] 00 the Medical morning. Branch aspirin 81 2023-0 Yes 81mg Take 1 Unive rs mg chewable 9-30 tablet by ity of tablet 00:00: mouth in [place] the Medical morning. Branch pantoprazol 2023-0 Yes 40mg Take 1 Univ ers e 40 mg EC 9-30 tablet by ity of tablet 00:00: mouth in [place] the Medical morning. Branch aspirin 81 2023-0 Yes 81mg Take 1 Unive rs mg chewable 9-30 tablet by ity of tablet 00:00: mouth in [place] the Medical morning. Branch pantoprazol 2023-0 Yes 40mg Take 1 Univ ers e 40 mg EC 9-30 tablet by ity of tablet 00:00: mouth in [place] the Medical morning. Branch aspirin 81 2023-0 Yes 81mg Take 1 Unive rs mg chewable 9-30 tablet by ity of tablet 00:00: mouth in [place] the Medical morning. Branch pantoprazol 2023-0 Yes 40mg Take 1 Univ ers e 40 mg EC 9-30 tablet by ity of tablet 00:00: mouth in [place] 00 the Medical morning. Branch aspirin 81 2023-0 Yes 81mg Take 1 Unive rs mg chewable 9-30 tablet by ity of tablet 00:00: mouth in [place] 00 the Medical morning. Branch pantoprazol 2023-0 Yes 40mg Take 1 Univ ers e 40 mg EC 9-30 tablet by ity of tablet 00:00: mouth in [place] 00 the Medical morning. Branch aspirin 81 2023-0 Yes 81mg Take 1 Unive rs mg chewable 9-30 tablet by ity of tablet 00:00: mouth in [place] 00 the Medical morning. Branch pantoprazol 2023-0 Yes 40mg Take 1 Univ ers e 40 mg EC 9-30 tablet by ity of tablet 00:00: mouth in [place] 00 the Medical morning. Branch aspirin 81 2023-0 Yes 81mg Take 1 Unive rs mg chewable 9-30 tablet by ity of tablet 00:00: mouth in [place] 00 the Medical morning. Branch pantoprazol 2023-0 Yes 40mg Take 1 Univ ers e 40 mg EC 9-30 tablet by ity of tablet 00:00: mouth in [place] 00 the Medical morning. Branch aspirin 81 2023-0 Yes 81mg Take 1 Unive rs mg chewable 9-30 tablet by ity of tablet 00:00: mouth in [place] the Medical morning. Branch pantoprazol 2023-0 Yes 40mg Take 1 Univ ers e 40 mg EC 9-30 tablet by ity of tablet 00:00: mouth in [place] 00 the Medical morning. Branch aspirin 81 2023-0 Yes 81mg Take 1 Unive rs mg chewable 9-30 tablet by ity of tablet 00:00: mouth in [place] the Medical morning. Branch pantoprazol 2023-0 Yes 40mg Take 1 Univ ers e 40 mg EC 9-30 tablet by ity of tablet 00:00: mouth in [place] the Medical morning. Branch aspirin 81 2023-0 Yes 81mg Take 1 Unive rs mg chewable 9-30 tablet by ity of tablet 00:00: mouth in [place] 00 the Medical morning. Branch pantoprazol 2023-0 Yes 40mg Take 1 Univ ers e 40 mg EC 9-30 tablet by ity of tablet 00:00: mouth in [place] 00 the Medical morning. Branch aspirin 81 2023-0 Yes 81mg Take 1 Unive rs mg chewable 9-30 tablet by ity of tablet 00:00: mouth in [place] 00 the Medical morning. Branch pantoprazol 2023-0 Yes 40mg Take 1 Univ ers e 40 mg EC 9-30 tablet by ity of tablet 00:00: mouth in [place] 00 the Medical morning. Branch aspirin 81 2023-0 Yes 81mg Take 1 Unive rs mg chewable 9-30 tablet by ity of tablet 00:00: mouth in [place] 00 the Medical morning. Branch pantoprazol 2023-0 Yes 40mg Take 1 Univ ers e 40 mg EC 9-30 tablet by ity of tablet 00:00: mouth in [place] the Medical morning. Branch aspirin 81 2022-0 Yes 81mg Take 1 Unive rs mg chewable 9-30 tablet by ity of tablet 00:00: mouth in [place] the Medical morning. Branch pantoprazol 2022-0 Yes 40mg Take 1 Univ ers e 40 mg EC 9-30 tablet by ity of tablet 00:00: mouth in [place] the Medical morning. Branch aspirin 81 2022-0 Yes 81mg Take 1 Unive rs mg chewable 9-30 tablet by ity of tablet 00:00: mouth in [place] the Medical morning. Branch pantoprazol 2022-0 Yes 40mg Take 1 Univ ers e 40 mg EC 9-30 tablet by ity of tablet 00:00: mouth in [place] the Medical morning. Branch aspirin 81 2022-0 Yes 81mg Take 1 Unive rs mg chewable 9-30 tablet by ity of tablet 00:00: mouth in [place] the Medical morning. Branch pantoprazol 2022-0 Yes 40mg Take 1 Univ ers e 40 mg EC 9-30 tablet by ity of tablet 00:00: mouth in [place] the Medical morning. Branch aspirin 81 2022-0 Yes 81mg Take 1 Unive rs mg chewable 9-30 tablet by ity of tablet 00:00: mouth in [place] the Medical morning. Branch pantoprazol 2022-0 Yes 40mg Take 1 Univ ers e 40 mg EC 9-30 tablet by ity of tablet 00:00: mouth in [place] the Medical morning. Branch warfarin Yes 1mg 1 mg, Univers (COUMADIN) 01-11 Oral, ity of tablet 1 mg 22:00: QFRIDAY AT [place] 00 1700, Medical First dose Branch on Sat01/11/23 at 1700, Until Discontinu ed, Routine
INR Goal Range: 2-3
IND ICATION (More than one indication for warfarin can be selected): Atrial fibrillati on/flutter HYDROcodone 0 2022- No 1 tablet U nivers -acetaminop 01-11 as needed it y of hen 7.5-325 15:34: 00:00 [place] mg per 47 :00 Medical tablet Branch aspirin 81 0 2022- No Aspirin Uni vers mg chewable 01-11 Oral ity of tablet 15:34: 00:00 active [place] 47 :00 Medical Branch ondansetron 2022-0 2022- No 4mg 4 mg, Univ ers (ZOFRAN) 01-11 Oral, ity of tablet 4 mg 15:00: 16:59 ONCE, 1 [place] :00 dose, On Medical Fri Branch 01/11/23 at 1000, Routine magnesium 2022-0 2022- No 2g 2 g, IV Univ ers sulfate in 01-11 Piggyback, it y of water 2 11:30: 11:56 Administer Babak as gram/50 mL 00 :00 over 60 Medica l (4 %) Minutes, Branch infusion 2 ONCE, 1 g dose, On 01/11/23 at 0630, Routine gabapentin 2022-0 Yes 300mg Take 1 Univ ers 300 mg 9-29 capsule by ity of capsule 00:00: mouth in [place] 00 the Medical morning Branch and 1 capsule at noon and 1 capsule in the evening. metoprolol 2022-0 Yes [id number] 37.5mg Take 37.5 [facility] tartrate 9-29 mg by ity of 37.5 mg Tab 00:00: mouth in [place] 00 the Medical morning Branch and 37.5 mg in the evening. ezetimibe 2022-0 Yes [id number] 10mg Take 1 U nivers (ZETIA) 10 9-29 tablet by ity of mg tablet 00:00: mouth in [facility] 00 the Medical morning. Branch alendronate 2022-0 Yes 70mg Take 1 Univ ers 70 mg 9-29 tablet by ity of tablet 00:00: mouth [place] 00 weekly. Medical Branch gabapentin 2022-0 Yes 300mg Take 1 [facility] ers 300 mg 9-29 capsule by ity of capsule 00:00: mouth in [place] 00 the Medical morning Branch and 1 capsule at noon and 1 capsule in the evening. metoprolol 2022-0 Yes [id number] 37.5mg Take 37.5 [facility] tartrate 9-29 mg by ity of 37.5 mg Tab 00:00: mouth in [place] 00 the Medical morning Branch and 37.5 mg in the evening. ezetimibe 2022-0 Yes [id number] 10mg Take 1 [facility] nivers (ZETIA) 10 9-29 tablet by ity of mg tablet 00:00: mouth [place] the Medical morning. Branch alendronate 2023-0 Yes 70mg Take 1 [facility] ers 70 mg 9-29 tablet by ity of tablet 00:00: mouth [place] 00 weekly. Medical Branch gabapentin 2023-0 Yes 300mg Take 1 [facility] ers 300 mg 9-29 capsule by ity of capsule 00:00: mouth in [place] 00 the Medical morning Branch and 1 capsule at noon and 1 capsule in the evening. metoprolol 2023-0 Yes [id number] 37.5mg Take 37.5 [facility] tartrate 9-29 mg by ity of 37.5 mg Tab 00:00: mouth in [place] the Medical morning Branch and 37.5 mg in the evening. ezetimibe 2023-0 Yes [id number] 10mg Take 1 [facility] n[facility] (ZETIA) 10 9-29 tablet by ity of mg tablet 00:00: mouth in [facility] the Medical morning. Branch alendronate 2023-0 Yes 70mg Take 1 [facility] ers 70 mg 9-29 tablet by ity of tablet 00:00: mouth [place] weekly. Medical Branch gabapentin 2023-0 Yes 300mg Take 1 [facility] ers 300 mg 9-29 capsule by ity of capsule 00:00: mouth in [place] the Medical morning Branch and 1 capsule at noon and 1 capsule in the evening. metoprolol 2023-0 Yes [id number] 37.5mg Take 37.5 [facility] tartrate 9-29 mg by ity of 37.5 mg Tab 00:00: mouth in [place] 00 the Medical morning Branch and 37.5 mg in the evening. ezetimibe 2023-0 Yes [id number] 10mg Take 1 [facility] n[facility] (ZETIA) 10 9-29 tablet by ity of mg tablet 00:00: mouth [place] 00 the Medical morning. Branch alendronate 2023-0 Yes 70mg Take 1 [facility] ers 70 mg 9-29 tablet by ity of tablet 00:00: mouth [place] 00 weekly. Medical Branch gabapentin 2023-0 Yes 300mg Take 1 [facility] ers 300 mg 9-29 capsule by ity of capsule 00:00: mouth in [place] 00 the Medical morning Branch and 1 capsule at noon and 1 capsule in the evening. metoprolol 2023-0 Yes [id number] 37.5mg Take 37.5 [facility] tartrate 9-29 mg by ity of 37.5 mg Tab 00:00: mouth in [place] 00 the Medical morning Branch and 37.5 mg in the evening. ezetimibe 2023-0 Yes [id number] 10mg Take 1 [facility] nivers (ZETIA) 10 9-29 tablet by ity of mg tablet 00:00: mouth [place] 00 the Medical morning. Branch alendronate 2023-0 Yes 70mg Take 1 Univ ers 70 mg 9-29 tablet by ity of tablet 00:00: mouth [place] 00 weekly. Medical Branch gabapentin 2023-0 Yes 300mg Take 1 [facility] ers 300 mg 9-29 capsule by ity of capsule 00:00: mouth in [place] 00 the Medical morning Branch and 1 capsule at noon and 1 capsule in the evening. metoprolol 2023-0 Yes [id number] 37.5mg Take 37.5 [facility] tartrate 9-29 mg by ity of 37.5 mg Tab 00:00: mouth in [place] the Medical morning Branch and 37.5 mg in the evening. ezetimibe 2023-0 Yes [id number] 10mg Take 1 [facility] nivers (ZETIA) 10 9-29 tablet by ity of mg tablet 00:00: mouth [place] 00 the Medical morning. Branch alendronate 3-0 Yes 70mg Take 1 Univ ers 70 mg 9-29 tablet by ity of tablet 00:00: mouth weekly. Medical Branch gabapentin 3-0 Yes 300mg Take 1 [facility] ers 300 mg 9-29 capsule by ity of capsule 00:00: mouth in [place] 00 the Medical morning Branch and 1 capsule at noon and 1 capsule in the evening. metoprolol 2023-0 Yes [id number] 37.5mg Take 37.5 [facility] tartrate 9-29 mg by ity of 37.5 mg Tab 00:00: mouth in [place] 00 the Medical morning Branch and 37.5 mg in the evening. ezetimibe 2023-0 Yes [id number] 10mg Take 1 [facility] nivers (ZETIA) 10 9-29 tablet by ity of mg tablet 00:00: mouth [place] 00 the Medical morning. Branch alendronate 2023-0 Yes 70mg Take 1 Univ ers 70 mg 9-29 tablet by ity of tablet 00:00: mouth [place] weekly. Medical Branch gabapentin 2023-0 Yes 300mg Take 1 Univ ers 300 mg 9-29 capsule by ity of capsule 00:00: mouth in [place] 00 the Medical morning Branch and 1 capsule at noon and 1 capsule in the evening. metoprolol 2023-0 Yes [id number] 37.5mg Take 37.5 [facility] tartrate 9-29 mg by ity of 37.5 mg Tab 00:00: mouth in [place] 00 the Medical morning Branch and 37.5 mg in the evening. ezetimibe 2023-0 Yes [id number] 10mg Take 1 U nivers (ZETIA) 10 9-29 tablet by ity of mg tablet 00:00: mouth [place] 00 the Medical morning. Branch alendronate 2023-0 Yes 70mg Take 1 Univ ers 70 mg 9-29 tablet by ity of tablet 00:00: mouth [place] weekly. Medical Branch gabapentin 3-0 Yes 300mg Take 1 [facility] ers 300 mg 9-29 capsule by ity of capsule 00:00: mouth in [place] 00 the Medical morning Branch and 1 capsule at noon and 1 capsule in the evening. metoprolol 2023-0 Yes [id number] 37.5mg Take 37.5 [facility] tartrate 9-29 mg by ity of 37.5 mg Tab 00:00: mouth in [place] 00 the Medical morning Branch and 37.5 mg in the evening. ezetimibe 2023-0 Yes [id number] 10mg Take 1 [facility] nivers (ZETIA) 10 9-29 tablet by ity of mg tablet 00:00: mouth [place] 00 the Medical morning. Branch alendronate 2023-0 Yes 70mg Take 1 Univ ers 70 mg 9-29 tablet by ity of tablet 00:00: mouth [place] 00 weekly. Medical Branch gabapentin 2023-0 Yes 300mg Take 1 [facility] ers 300 mg 9-29 capsule by ity of capsule 00:00: mouth in [place] 00 the Medical morning Branch and 1 capsule at noon and 1 capsule in the evening. metoprolol 2023-0 Yes [id number] 37.5mg Take 37.5 [facility] tartrate 9-29 mg by ity of 37.5 mg Tab 00:00: mouth in [place] 00 the Medical morning Branch and 37.5 mg in the evening. ezetimibe 2023-0 Yes [id number] 10mg Take 1 U nivers (ZETIA) 10 9-29 tablet by ity of mg tablet 00:00: mouth [place] 00 the Medical morning. Branch alendronate 2023-0 Yes 70mg Take 1 Univ ers 70 mg 9-29 tablet by ity of tablet 00:00: mouth [place] 00 weekly. Medical Branch gabapentin 2023-0 Yes 300mg Take 1 [facility] ers 300 mg 9-29 capsule by ity of capsule 00:00: mouth in [place] 00 the Medical morning Branch and 1 capsule at noon and 1 capsule in the evening. metoprolol 2023-0 Yes [id number] 37.5mg Take 37.5 [facility] tartrate 9-29 mg by ity of 37.5 mg Tab 00:00: mouth in [place] 00 the Medical morning Branch and 37.5 mg in the evening. ezetimibe 2023-0 Yes [id number] 10mg Take 1 U nivers (ZETIA) 10 9-29 tablet by ity of mg tablet 00:00: mouth [place] 00 the Medical morning. Branch alendronate 2023-0 Yes 70mg Take 1 Univ ers 70 mg 9-29 tablet by ity of tablet 00:00: mouth [place] weekly. Medical Branch gabapentin 2023-0 Yes 300mg Take 1 [facility] ers 300 mg 9-29 capsule by ity of capsule 00:00: mouth in [place] 00 the Medical morning Branch and 1 capsule at noon and 1 capsule in the evening. metoprolol 2023-0 Yes [id number] 37.5mg Take 37.5 [facility] tartrate 9-29 mg by ity of 37.5 mg Tab 00:00: mouth in [place] 00 the Medical morning Branch and 37.5 mg in the evening. ezetimibe 2023-0 Yes [id number] 10mg Take 1 [facility] nivers (ZETIA) 10 9-29 tablet by ity of mg tablet 00:00: mouth [place] 00 the Medical morning. Branch alendronate 2023-0 Yes 70mg Take 1 Univ ers 70 mg 9-29 tablet by ity of tablet 00:00: mouth [place] 00 weekly. Medical Branch gabapentin 2023-0 Yes 300mg Take 1 Univ ers 300 mg 9-29 capsule by ity of capsule 00:00: mouth in [place] 00 the Medical morning Branch and 1 capsule at noon and 1 capsule in the evening. metoprolol 2023-0 Yes [id number] 37.5mg Take 37.5 [facility] tartrate 9-29 mg by ity of 37.5 mg Tab 00:00: mouth in [place] the Medical morning Branch and 37.5 mg in the evening. ezetimibe 2023-0 Yes [id number] 10mg Take 1 U nivers (ZETIA) 10 9-29 tablet by ity of mg tablet 00:00: mouth [place] 00 the Medical morning. Branch alendronate 2023-0 Yes 70mg Take 1 Univ ers 70 mg 9-29 tablet by ity of tablet 00:00: mouth [place] 00 weekly. Medical Branch gabapentin 2023-0 Yes 300mg Take 1 Univ ers 300 mg 9-29 capsule by ity of capsule 00:00: mouth in [place] the Medical morning Branch and 1 capsule at noon and 1 capsule in the evening. metoprolol 2023-0 Yes [id number] 37.5mg Take 37.5 [facility] tartrate 9-29 mg by ity of 37.5 mg Tab 00:00: mouth in [place] the Medical morning Branch and 37.5 mg in the evening. ezetimibe 2023-0 Yes [id number] 10mg Take 1 U nivers (ZETIA) 10 9-29 tablet by ity of mg tablet 00:00: mouth in [facility] the Medical morning. Branch alendronate 2023-0 Yes 70mg Take 1 Univ ers 70 mg 9-29 tablet by ity of tablet 00:00: mouth [place] 00 weekly. Medical Branch gabapentin 2023-0 Yes 300mg Take 1 Univ ers 300 mg 9-29 capsule by ity of capsule 00:00: mouth in [place] the Medical morning Branch and 1 capsule at noon and 1 capsule in the evening. metoprolol 2023-0 Yes [id number] 37.5mg Take 37.5 [facility] tartrate 9-29 mg by ity of 37.5 mg Tab 00:00: mouth in [place] the Medical morning Branch and 37.5 mg in the evening. ezetimibe 2023-0 Yes [id number] 10mg Take 1 U nivers (ZETIA) 10 9-29 tablet by ity of mg tablet 00:00: mouth [place] the Medical morning. Branch alendronate 3-0 Yes 70mg Take 1 Univ ers 70 mg 9-29 tablet by ity of tablet 00:00: mouth [place] 00 weekly. Medical Branch gabapentin 2023-0 Yes 300mg Take 1 Univ ers 300 mg 9-29 capsule by ity of capsule 00:00: mouth in 00 the Medical morning Branch and 1 capsule at noon and 1 capsule in the evening. metoprolol 2023-0 Yes [id number] 37.5mg Take 37.5 [facility] tartrate 9-29 mg by ity of 37.5 mg Tab 00:00: mouth in [place] the Medical morning Branch and 37.5 mg in the evening. ezetimibe 3-0 Yes [id number] 10mg Take 1 U nivers (ZETIA) 10 9-29 tablet by ity of mg tablet 00:00: mouth [place] the Medical morning. Branch alendronate 2022-0 Yes 70mg Take 1 Univ ers 70 mg 9-29 tablet by ity of tablet 00:00: mouth weekly. Medical Branch gabapentin 3-0 Yes 300mg Take 1 Univ ers 300 mg 9-29 capsule by ity of capsule 00:00: mouth in [place] the Medical morning Branch and 1 capsule at noon and 1 capsule in the evening. metoprolol 3-0 Yes [id number] 37.5mg Take 37.5 [facility] tartrate 9-29 mg by ity of 37.5 mg Tab 00:00: mouth in [place] the Medical morning Branch and 37.5 mg in the evening. ezetimibe 3-0 Yes [id number] 10mg Take 1 U nivers (ZETIA) 10 9-29 tablet by ity of mg tablet 00:00: mouth [place] the Medical morning. Branch alendronate 2022-0 Yes 70mg Take 1 Univ ers 70 mg 9-29 tablet by ity of tablet 00:00: mouth [place] 00 weekly. Medical Branch warfarin 3-0 Yes 1mg 1 mg, Univers (COUMADIN) 9- Oral, ity of tablet 1 mg 22:00: QTHURSDAY [place] 00 AT 1700, Medical First dose Branch on Sat01/10/23 at 1700, Until Discontinu ed, Routine
INR Goal Range: 2-3
IND ICATION (More than one indication for warfarin can be selected): Atrial fibrillati on/flutter aspirin Yes 81mg 81 mg, Univers chewable 01-10 Oral, ity of tablet 81 15:00: DAILY, [place] mg 00 First dose Medical on Sat Branch 01/10/23 at 1000, Until Discontinu ed, Routine furosemide 0 2022- No 20mg 20 mg, Univ ers (LASIX) 01-10 Slow IV ity of injection 14:30: 14:01 Push, [place] 20 mg 00 :00 ONCE, 1 Medical dose, On Branch Sat01/10/23 at 0930, Routine Lidocaine 0 Yes 1{patch 1 Patch, U nivers (LIDOCARE) 01-10 } Topical, ity o f 4 % patch 1 14:00: Administer [place] Patch 00 over 12 Medical Hours, Branch DAILY, First dose (after last modificati on) on Sat01/10/23 at 0900, Until Discontinu ed, Routine sennosides- Yes 1{tbl} 1 tablet, Univers docusate 01-10 Oral, ity of sodium 14:00: DAILY, [place] (SENOKOT-S) 00 First dose Me dical 8.6-50 mg on [facility] per tablet 01/10/23 at 1 tablet 0900, Until Discontinu ed, Routine warfarin Yes 2mg 2 mg, Univers (COUMADIN) 01-09 Oral, ity of tablet 2 mg 22:00: QWEDNES [place] 00 AT 1700, Medical First dose Branch on Sat01/09/23 at 1700, Until Discontinu ed, Routine
INR Goal Range: 2-3
IND ICATION (More than one indication for warfarin can be selected): Atrial fibrillati on/flutter zolpidem Yes 10mg 10 mg, Univers (AMBIEN) 01-09 Oral, ity of tablet 10 21:20: QHSPRN, [place] mg 33 Starting Medical on Sat01/09/23 at 1620, Until Discontinu ed, Routine, Insomnia acetaminoph 2022-0 Yes 650mg 650 mg, [facility]ong en 01-09 Oral, ity of (TYLENOL) 20:33: Q6HPRN, [place] tablet 650 11 Starting Medic al mg on Sat01/09/23 at 1533, Until Discontinu ed, Routine, Pain (scale 1-3) METOPROLOL 2022-0 2022- No Metoprolol Univers TARTRATE 01-0924 Oral ity of ORAL 15:15: 00:00 (Tartrate) [place] 06 :00 active [facility] Branch lidocaine 2022-0 2022- No 1{patch 1 Patch, Univers (LIDODERM) 01-09 } Topical, ity of 5 % (700 14:00: 13:57 Administer [place] mg/patch) 00 :26 over 12 Medical patch 1 Hours, Branch Patch DAILY, First dose on Sat01/09/23 at 0900, Until Discontinu ed, Routine aspirin 81 2022-0 Yes Aspirin Univ ers mg chewable 01-09 Oral ity of tablet 13:57: active [address] zolpidem 0 Yes 5mg 5 mg, Univers (AMBIEN) 01-09 Oral, QHS, ity o f tablet 5 mg 02:00: First dose [place] 00 on Sat01/08/23 at Branch 2100, Until Discontinu ed, Routine metoprolol 2022-0 Yes 37.5mg 37.5 mg, U nivers tartrate 01-09 Oral, BID, ity o f (LOPRESSOR) 01:00: First dose [place] tablet 37.5 00 (after Medica l mg last Branch modificati on) on Sat01/08/23 at 2000, Until Discontinu ed, Routine gabapentin 2022-0 Yes 300mg 300 mg, Uni vers (NEURONTIN) 01-09 Oral, TID, it y of capsule 300 01:00: First dose [place] mg 00 (after Medical last Branch modificati on) on Sat01/08/23 at 2000, Until Discontinu ed, Routine warfarin 2022-0 Yes 2mg 2 mg, Univers (COUMADIN) 01-08 Oral, ity of tablet 2 mg 22:00: QTUESDAY [place] 00 AT 1700, Medical First dose Branch on Sat01/08/23 at 1700, Until Discontinu ed, Routine
INR Goal Range: 2-3
IND ICATION (More than one indication for warfarin can be selected): Atrial fibrillati on/flutter FENTanyl 2022-0 3- No 1{patch 1 Patch, U nivers (DURAGESIC) 01-08 } Transderma i ty of 12 mcg/hr 18:45: 19:16 l (Apply Babak as patch 1 00 :00 To Skin), Medical Patch Administer Branch over 72 Hours, ONCE, 1 dose, On Sat01/08/23 at 1345, Routine HYDROcodone Yes 1{tbl} 1 tablet, Univers -acetaminop 01-08 Oral, ity of hen (NORCO) 18:15: Q6HPRN, [place] as 10-325 mg 00 Starting Medica l tablet 1 on Sat Branch tablet 01/08/23 at 1315, Until Discontinu ed, Routine, Pain (scale 4-6) morpHINE (2 Yes 2mg 2 mg, Slow Univers mg/mL) 01-08 IV Push, ity of injection 2 17:52: Q3HPRN, [place] as mg 40 Starting Medical on Sat Branch 01/08/23 at 1252, Until Discontinu ed, Routine, Pain (scale 7-10) metoclopram Yes 5mg 5 mg, Unive rs spencer HCl 01-08 Oral, ity of (REGLAN) 17:27: Q6HPRN, [place] tablet 5 mg 05 Starting Medi tyrone on Sat Branch 01/08/23 at 1227, Until Discontinu ed, Routine, Nausea and Vomiting (N/V) metoprolol 2022- No 12.5mg 12.5 mg, Univers tartrate 01-08 Oral, ity of (LOPRESSOR) 17:00: 00:28 QNOON, [place] as tablet 12.5 00 :53 First dose Me dical mg on Sat Branch 01/08/23 at 1200, Until Discontinu ed, Routine atorvastati Yes 80mg 80 mg, Univ ers n (LIPITOR) 01-08 Oral, QHS, it y of tablet 80 02:00: First dose [place] mg 00 on [facility] 01/07/23 at Branch 2100, Until Discontinu ed, Routine metoprolol 2022- No 25mg 25 mg, Univ ers tartrate 01-08 Oral, BID, ity of (LOPRESSOR) 01:00: 00:28 First dose [place] tablet 25 00 :53 on [facility] Medical mg 01/07/23 at Branch 2000, Until Discontinu ed, Routine warfarin Yes 2mg 2 mg, Univers (COUMADIN) 01-07 Oral, ity of tablet 2 mg 22:00: QMONDAY AT [place] 00 1700, Medical First dose Branch on [facility] 01/07/23 at 1700, Until Discontinu ed, Routine
INR Goal Range: 2-3
IND ICATION (More than one indication for warfarin can be selected): Atrial fibrillati on/flutter pantoprazol Yes 40mg 40 mg, Univ ers e 01-07 Oral, ity of (PROTONIX) 14:00: DAILY, [place] EC tablet 00 First dose Medi tyrone 40 mg on [facility] 01/07/23 at 0900, Until Discontinu ed, Routine ezetimibe Yes 10mg 10 mg, Univer s (ZETIA) 01-07 Oral, ity of tablet 10 14:00: DAILY, [place] mg 00 First dose Medical on [facility] 01/07/23 at 0900, Until Discontinu ed, Routine aspirin 2022- No 324mg 324 mg, Unive rs chewable 01-07 Oral, ity of tablet 324 14:00: 12:26 DAILY, [place] mg 00 :42 First dose Medical on [facility] 01/07/23 at 0900, Until Discontinu ed, Routine dofetilide No 125ug 125 mcg, U nivers (TIKOSYN) 01-07 Oral, ity of capsule 125 13:30: 00:59 Q12H, [place] mcg 00 :03 First dose Medical on [facility] 01/07/23 at 0830, Until Discontinu ed, Routine
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 approving Restricted medication : ALICIA SMITH FENTanyl PF 2022- No 50ug 50 mcg, [facility] (SUBLIMAZE 01-07 Slow IV ity o f (PF)) 11:27: 15:53 Push, [place] injection 31 :26 Q4HPRN, Medical 50 mcg Starting Branch on 01/07/23 at 0627, Until Sat01/08/23 at 1053, Routine, Pain (scale 7-10) HYDROcodone 0 3- No 1{tbl} 1 tablet, Univers -acetaminop 01-07 Oral, ity of hen (NORCO 11:27: 17:52 Q6HPRN, [place] as 5) 5-325 mg 03 :59 Starting Medi tyrone tablet 1 on Sat Branch tablet 01/07/23 at 0627, Until Sat01/08/23 at 1252, Routine, Pain (scale 4-6) aspirin 81 2022-0 Yes Aspirin Univ ers mg chewable 9-25 Oral ity of tablet 08:31: active [address] aspirin 81 2022-0 Yes Aspirin Univ ers mg chewable 9-25 Oral ity of tablet 08:31: active [address] aspirin 81 2022-0 Yes Aspirin Univ ers mg chewable 9-25 Oral ity of tablet 08:31: active [address] HYDROcodone 0 Yes 1 tablet [facility] -acetaminop 9-25 as needed ity of hen 7.5-325 08:26: [place] mg per 59 Medical tablet Branch HYDROcodone 2022-0 Yes 1 tablet [facility] -acetaminop 9-25 as needed ity of hen 7.5-325 08:26: [place] mg per 59 Medical tablet Branch HYDROcodone 2022-0 Yes 1 tablet [facility] -acetaminop 9-25 as needed ity of hen 7.5-325 08:26: [place] mg per 59 Medical tablet Branch HYDROcodone 2022-0 Yes 1 tablet [facility] -acetaminop 9-25 as needed ity of hen 7.5-325 08:26: [place] mg per 59 Medical tablet Branch HYDROcodone 2022-0 Yes 1 tablet [facility] -acetaminop 9-25 as needed ity of hen 7.5-325 08:26: [place] mg per 59 Medical tablet Branch HYDROcodone 2022-0 Yes 1 tablet [facility] [place] -acetaminop 9-25 as needed ity of hen 7.5-325 08:26: [place] mg per 59 Medical tablet Branch warfarin 2022- No 2mg 2 mg, Univers (COUMADIN) 01-07 Oral, ONCE it y of tablet 2 mg 06:15: 05:29 NOW, 1 [place] as 00 :00 dose, On Medical [facility] 01/07/23 at 0115, Routine
INR Goal Range: 2-3
IND ICATION (More than one indication for warfarin can be selected): Mechanical AVR zolpidem 2022- No 10mg 10 mg, Univer s (AMBIEN) 01-07 Oral, ity of tablet 10 05:20: 23:31 QHSPRN, [place] mg 11 :24 Starting Medical on [facility] 01/07/23 at 0020, Until Sat01/08/23 at 1831, Routine, Insomnia ketorolac 2022- No 15mg 15 mg, Unive rs (TORADOL) 01-07 Slow IV ity of injection 04:00: 03:27 Push, [place] 15 mg 00 :00 ONCE, 1 Medical dose, On Branch [place] 01/06/23 at 2300, Routine ondansetron 2022- No 4mg 4 mg, Slow Univers (ZOFRAN 01-07 IV Push, ity of (PF)) 02:36: 17:27 Q6HPRN, [place] injection 4 30 :33 Starting Medi tyrone mg on [facility] 01/06/23 at 2136, Until Sat01/08/23 at 1227, Routine, Nausea and Vomiting (N/V) acetaminoph 2022- No 650mg 650 mg, U nivers en 01-07 Oral, ity of (TYLENOL) 02:35: 11:27 Q6HPRN, [place] tablet 650 26 :44 Starting Medic al mg on [facility] 01/06/23 at 2135, Until [facility] 01/07/23 at 0627, Routine, Pain (scale 1-3) ondansetron 2022- No 4mg 4 mg, Slow Univers (ZOFRAN 01-07 IV Push, ity of (PF)) 01:15: 01:04 ONCE, 1 [place] injection 4 00 :00 dose, On Medi tyrone mg [facility] 01/06/23 at 2015, ОЛЕГ metoprolol 2022- No 25mg 25 mg, Univ ers tartrate 01-07 Oral, ity of (LOPRESSOR) 00:00: 23:30 ONCE, 1 [place] tablet 25 00 :00 dose, On Medica l mg [facility] 01/06/23 at 1900, Routine FENTanyl PF 2022- No 25ug 25 mcg, [facility] (SUBLIMAZE 01-06 Slow IV ity o f (PF)) 23:15: 23:19 Push, [place] injection 00 :00 ONCE, 1 Medical 25 mcg dose, On Branch [place] 01/06/23 at 1815, STAT metoprolol 2022- No 5mg 5 mg, Slow Univers (LOPRESSOR) 01-06 IV Push, ity of injection 5 23:15: 23:22 ONCE, 1 [place] mg 00 :00 dose, On Medical [facility] 01/06/23 at 1815, ОЛЕГ pantoprazol 2022- No 40mg Take 1 Uni vers e 40 mg EC 12-21 tablet by ity of tablet 00:00: 00:00 mouth in [place] 00 :00 the Medical morning Branch and 1 tablet in the evening. warfarin 1 Yes [id number] 2mg [facility] mg tablet 12-20 3x/week ity of 00:00: 1mg 4x/week Medical Branch warfarin 1 Yes [id number] 2mg [place] mg tablet 12-20 3x/week ity of 00:00: 1mg 4x/week Medical Branch warfarin 1 Yes [id number] 2mg [place] mg tablet 12-20 3x/week ity of 00:00: 1mg [place] 4x/week Medical Branch dofetilide Yes [id number] 2 (two) Univers 125 mcg 12-20 times a ity of capsule 00:00: day [place] [address] Medical Branch warfarin 1 Yes [id number] 2mg [facility] mg tablet 12-20 3x/week ity of 00:00: 1mg 4x/week Medical Branch dofetilide Yes [id number] 2 (two) Univers 125 mcg 9-07 times a ity of capsule 00:00: day Medical Branch warfarin 1 Yes [id number] 2mg [place] mg tablet 12-20 3x/week ity of 00:00: 1mg 00 4x/week Medical Branch dofetilide Yes [id number] 2 (two) [facility] 125 mcg 9-07 times a ity of capsule 00:00: day Medical Branch warfarin 1 Yes [id number] 2mg [place] mg tablet 12-20 3x/week ity of 00:00: 1mg 4x/week Medical Branch dofetilide Yes [id number] 2 (two) [facility] 125 mcg 9-07 times a ity of capsule 00:00: day Medical Branch warfarin 1 Yes [id number] 2mg [place] mg tablet 12-20 3x/week ity of 00:00: 1mg 4x/week Medical Branch dofetilide Yes [id number] 2 (two) [facility] 125 mcg 9-07 times a ity of capsule 00:00: day Medical Branch warfarin 1 Yes [id number] 2mg [place] mg tablet 12-20 3x/week ity of 00:00: 1mg 4x/week Medical Branch dofetilide Yes [id number] 2 (two) [facility] 125 mcg 9-07 times a ity of capsule 00:00: day Medical Branch amoxicillin Yes 1{tbl} Take 1 [facility] -clavulanat 12-20 tablet by ity of e 875-125 00:00: mouth [place] mg per 00 every Medical tablet morning Branch and evening. warfarin 1 Yes [id number] 2mg [facility] [place] mg tablet 12-20 3x/week ity of 00:00: 1mg 4x/week Medical Branch dofetilide Yes [id number] 2 (two) [facility] 125 mcg 9-07 times a ity of capsule 00:00: day Medical Branch amoxicillin Yes 1{tbl} Take 1 [facility] -clavulanat 12-20 tablet by ity of e 875-125 00:00: mouth [place] mg per 00 every Medical tablet morning Branch and evening. warfarin 1 Yes [id number] 2mg [place] mg tablet 12-20 3x/week ity of 00:00: 1mg 00 4x/week Medical Branch dofetilide Yes [id number] 2 (two) [facility] 125 mcg - times a ity of capsule 00:00: day Medical Branch amoxicillin Yes 1{tbl} Take 1 [facility] -clavulanat 12-20 tablet by ity of e 875-125 00:00: mouth [place] mg per 00 every Medical tablet morning Branch and evening. warfarin 1 Yes [id number] 2mg [facility] [place] mg tablet 12-20 3x/week ity of 00:00: 1mg 00 4x/week Medical Branch dofetilide Yes [id number] 2 (two) [facility] 125 mcg - times a ity of capsule 00:00: day Medical Branch amoxicillin Yes 1{tbl} Take 1 [facility] -clavulanat 12-20 tablet by ity of e 875-125 00:00: mouth [place] mg per 00 every Medical tablet morning Branch and evening. warfarin 1 Yes [id number] 2mg [facility] mg tablet 12-20 3x/week ity of 00:00: 1mg 00 4x/week Medical Branch dofetilide Yes [id number] 2 (two) Univers 125 mcg - times a ity of capsule 00:00: day [facility] warfarin 1 Yes [id number] 2mg [facility] mg tablet 12-20 3x/week ity of 00:00: 1mg 4x/week [facility] dofetilide Yes [id number] 2 (two) [facility] 125 mcg 9-07 times a ity of capsule 00:00: day [facility] warfarin 1 Yes [id number] 2mg [facility] mg tablet 12-20 3x/week ity of 00:00: 1mg 00 4x/week [facility] warfarin 1 Yes [id number] 2mg [facility] mg tablet 12-20 3x/week ity of 00:00: 1mg 4x/week [facility] warfarin 1 2022-0 Yes [id number] 2mg [facility] mg tablet 12-20 3x/week ity of 00:00: 1mg 4x/week [facility] warfarin 1 2022-0 Yes [id number] 2mg [facility] mg tablet 12-20 3x/week ity of 00:00: 1mg 4x/week [facility] warfarin 1 2022-0 Yes [id number] 2mg [facility] mg tablet 12-20 3x/week ity of 00:00: 1mg 4x/week [facility] warfarin 1 2022-0 Yes [id number] 2mg [facility] mg tablet 12-20 3x/week ity of 00:00: 1mg 4x/week [facility] warfarin 1 0 Yes [id number] 2mg [facility] mg tablet 12-20 3x/week ity of 00:00: 1mg 4x/week [facility] warfarin 1 0 Yes [id number] 2mg [facility] mg tablet 12-20 3x/week ity of 00:00: 1mg 4x/week [facility] warfarin 1 0 Yes [id number] 2mg [facility] mg tablet 12-20 3x/week ity of 00:00: 1mg 4x/week [facility] warfarin 1 2022-0 Yes [id number] 2mg [facility] mg tablet 12-20 3x/week ity of 00:00: 1mg 4x/week [facility] warfarin 1 2022-0 Yes [id number] 2mg [facility] mg tablet 12-20 3x/week ity of 00:00: 1mg 4x/week [facility] warfarin 1 2022-0 Yes [id number] 2mg [facility] mg tablet 12-20 3x/week ity of 00:00: 1mg 4x/week [facility] warfarin 1 2022-0 Yes [id number] 2mg [facility] mg tablet 12-20 3x/week ity of 00:00: 1mg 4x/week [facility] warfarin 1 2022-0 2022- No [id number] 2mg [facility] mg tablet 12-20 3x/week ity of 00:00: 00:00 1mg [place] 00 :00 4x/week [facility] dofetilide 0 3- No [id number] 2 (two) [facility] 125 mcg 12-20 times a ity of capsule 00:00: 00:00 day [place] 00 :00 [facility] amoxicillin 2022-0 2023- No 1{tbl} Take 1 [facility] -clavulanat 12-20 tablet by it y of e 875-125 00:00: 00:00 mouth [place] mg per 00 :00 every Medical tablet morning Branch and evening. metoprolol 0 Yes [facility] tartrate 25 8-11 it[facility] of mg tablet 00:00: [place] [facility] metoprolol 2022-0 Yes [facility] tartrate 25 8-11 [facility] of mg tablet 00:00: [place] [facility] metoprolol 2022-0 Yes [facility] tartrate 25 8-11 ity of mg tablet 00:00: [place] [facility] metoprolol 2022-0 Yes [facility] tartrate 25 8-11 [facility] of mg tablet 00:00: [place] 00 [facility] metoprolol 2022-0 2022- No [facility] tartrate 25 829 ity of mg tablet 00:00: 00:00 [place] 00 :00 [facility] Diclofenac 2022-0 Yes [facility] Sodium 1 % 8-08 ity of gel 00:00: [place] 00 [facility] Diclofenac 2022-0 Yes [facility] Sodium 1 % 8-08 ity of gel 00:00: [place] 00 [facility] Diclofenac 2022-0 Yes [facility] Sodium 1 % 8-08 ity of gel 00:00: [place] 00 [facility] Diclofenac 2022-0 Yes [facility] Sodium 1 % 8-08 ity of gel 00:00: [place] 00 [facility] Diclofenac 2022-0 2022- No [facility] Sodium 1 % 11-2029 ity of gel 00:00: 00:00 [place] 00 :00 [facility] atorvastati 2022-0 Yes 80mg Take 1 [facility] ers n 80 mg 7-12 tablet by ity of tablet 00:00: mouth at [place] [address] bedtime. [facility] atorvastati 2022-0 Yes 80mg Take 1 [facility] ers n 80 mg 7-12 tablet by ity of tablet 00:00: mouth at [place] [address] bedtime. [facility] atorvastati 2023-0 Yes 80mg Take 1 [facility] n 80 mg 7-12 tablet by ity of tablet 00:00: mouth at [place] [address] bedtime. [facility] atorvastati 2023-0 Yes 80mg Take 1 [facility] n 80 mg 7-12 tablet by ity of tablet 00:00: mouth at [place] [address] bedtime. [facility] atorvastati 2023-0 Yes 80mg Take 1 [facility] n 80 mg 7-12 tablet by ity of tablet 00:00: mouth at [place] bedtime. [facility] atorvastati 3-0 Yes 80mg Take 1 [facility] n 80 mg 7-12 tablet by ity of tablet 00:00: mouth at [place] [address] bedtime. [facility] atorvastati 3-0 Yes 80mg Take 1 [facility] n 80 mg 7-12 tablet by ity of tablet 00:00: mouth at [place] [address] bedtime. [facility] atorvastati 3-0 Yes 80mg Take 1 [facility] 80 mg 7-12 tablet by ity of tablet 00:00: mouth at [place] [address] bedtime. [facility] atorvastati 3-0 Yes 80mg Take 1 [facility] 80 mg 7-12 tablet by ity of tablet 00:00: mouth at [place] [address] bedtime. [facility] atorvastati 3-0 Yes 80mg Take 1 [facility] 80 mg 7-12 tablet by ity of tablet 00:00: mouth at [place] [address] bedtime. [facility] atorvastati 2023-0 Yes 80mg Take 1 [facility] 80 mg 7-12 tablet by ity of tablet 00:00: mouth at [place] [address] bedtime. [facility] atorvastati 2023-0 Yes 80mg Take 1 [facility] 80 mg 7-12 tablet by ity of tablet 00:00: mouth at [place] [address] bedtime. [facility] atorvastati 2023-0 Yes 80mg Take 1 [facility] 80 mg 7-12 tablet by ity of tablet 00:00: mouth at [place] [address] bedtime. [facility] atorvastati 2023-0 Yes 80mg Take 1 [facility] 80 mg 7-12 tablet by ity of tablet 00:00: mouth at [place] [address] bedtime. [facility] atorvastati 2023-0 Yes 80mg Take 1 [facility] 80 mg 7-12 tablet by ity of tablet 00:00: mouth at [place] [address] bedtime. [facility] atorvastati 3-0 Yes 80mg Take 1 [facility] 80 mg 7-12 tablet by ity of tablet 00:00: mouth at [place] [address] bedtime. [facility] atorvastati 3-0 Yes 80mg Take 1 [facility] 80 mg 7-12 tablet by ity of tablet 00:00: mouth at [place] [address] bedtime. [facility] atorvastati 3-0 Yes 80mg Take 1 [facility] 80 mg 7-12 tablet by ity of tablet 00:00: mouth at [place] [address] bedtime. [facility] atorvastati 3-0 Yes 80mg Take 1 [facility] 80 mg 7-12 tablet by ity of tablet 00:00: mouth at [place] [address] bedtime. [facility] atorvastati 3-0 Yes 80mg Take 1 [facility] 80 mg 7-12 tablet by ity of tablet 00:00: mouth at [place] [address] bedtime. [facility] atorvastati 3-0 Yes 80mg Take 1 [facility] 80 mg 7-12 tablet by ity of tablet 00:00: mouth at [place] [address] bedtime. [facility] atorvastati 3-0 Yes 80mg Take 1 [facility] 80 mg 7-12 tablet by ity of tablet 00:00: mouth at [place] [address] bedtime. [facility] atorvastati 3-0 Yes 80mg Take 1 [facility] 80 mg 7-12 tablet by ity of tablet 00:00: mouth at [place] [address] bedtime. [facility] atorvastati 3-0 Yes 80mg Take 1 [facility] 80 mg 7-12 tablet by ity of tablet 00:00: mouth at [place] [address] bedtime. [facility] atorvastati 3-0 Yes 80mg Take 1 [facility] 80 mg 7-12 tablet by ity of tablet 00:00: mouth at [place] [address] bedtime. [facility] atorvastati 3-0 Yes 80mg Take 1 [facility] 80 mg 7-12 tablet by ity of tablet 00:00: mouth at [place] [address] bedtime. [facility] atorvastati 3-0 Yes 80mg Take 1 [facility] 80 mg 7-12 tablet by ity of tablet 00:00: mouth at [place] [address] bedtime. [facility] atorvastati 2023-0 Yes 80mg Take 1 [facility] 80 mg 7-12 tablet by ity of tablet 00:00: mouth at [place] [address] bedtime. [facility] atorvastati 2023-0 Yes 80mg Take 1 [facility] 80 mg 7-12 tablet by ity of tablet 00:00: mouth at [place] [address] bedtime. [facility] atorvastati 2023-0 Yes 80mg Take 1 [facility] 80 mg 7-12 tablet by ity of tablet 00:00: mouth at [place] bedtime. [facility] atorvastati 3-0 Yes 80mg Take 1 [facility] 80 mg 7-12 tablet by ity of tablet 00:00: mouth at [place] [address] bedtime. [facility] atorvastati 3-0 Yes 80mg Take 1 [facility] 80 mg 7-12 tablet by ity of tablet 00:00: mouth at [place] [address] bedtime. [facility] atorvastati 3-0 Yes 80mg Take 1 [facility] 80 mg 7-12 tablet by ity of tablet 00:00: mouth at [place] [address] bedtime. [facility] atorvastati 3-0 Yes 80mg Take 1 [facility] 80 mg 7-12 tablet by ity of tablet 00:00: mouth at [place] [address] bedtime. [facility] atorvastati 3-0 Yes 80mg Take 1 [facility] 80 mg 7-12 tablet by ity of tablet 00:00: mouth at [place] [address] bedtime. [facility] atorvastati 2023-0 Yes 80mg Take 1 [facility] 80 mg 7-12 tablet by ity of tablet 00:00: mouth at [place] [address] bedtime. [facility] atorvastati 2023-0 Yes 80mg Take 1 [facility] 80 mg 7-12 tablet by ity of tablet 00:00: mouth at [place] [address] bedtime. [facility] atorvastati 2023-0 Yes 80mg Take 1 [facility] 80 mg 7-12 tablet by ity of tablet 00:00: mouth at [place] [address] bedtime. [facility] atorvastati 2023-0 Yes 80mg Take 1 [facility] 80 mg 7-12 tablet by ity of tablet 00:00: mouth at [place] [address] bedtime. [facility] atorvastati 2023-0 Yes 80mg Take 1 [facility] 80 mg 7-12 tablet by ity of tablet 00:00: mouth at [place] [address] bedtime. [facility] atorvastati 3-0 Yes 80mg Take 1 [facility] 80 mg 7-12 tablet by ity of tablet 00:00: mouth at [place] [address] bedtime. [facility] atorvastati 3-0 Yes 80mg Take 1 [facility] 80 mg 7-12 tablet by ity of tablet 00:00: mouth at [place] [address] bedtime. [facility] atorvastati 3-0 Yes 80mg Take 1 [facility] 80 mg 7-12 tablet by ity of tablet 00:00: mouth at [place] [address] bedtime. [facility] atorvastati 3-0 Yes 80mg Take 1 [facility] 80 mg 7-12 tablet by ity of tablet 00:00: mouth at [place] [address] bedtime. [facility] atorvastati 3-0 Yes 80mg Take 1 [facility] 80 mg 7-12 tablet by ity of tablet 00:00: mouth at [place] [address] bedtime. [facility] atorvastati 3-0 Yes 80mg Take 1 [facility] 80 mg 7-12 tablet by ity of tablet 00:00: mouth at [place] [address] bedtime. [facility] atorvastati 3-0 Yes 80mg Take 1 [facility] 80 mg 7-12 tablet by ity of tablet 00:00: mouth at [place] [address] bedtime. [facility] atorvastati 3-0 Yes 80mg Take 1 [facility] 80 mg 7-12 tablet by ity of tablet 00:00: mouth at [place] [address] bedtime. [facility] atorvastati 3-0 Yes 80mg Take 1 [facility] 80 mg 7-12 tablet by ity of tablet 00:00: mouth at [place] [address] bedtime. [facility] atorvastati 3-0 Yes 80mg Take 1 [facility] 80 mg 7-12 tablet by ity of tablet 00:00: mouth at [place] [address] bedtime. [facility] atorvastati 3-0 Yes 80mg Take 1 [facility] 80 mg 7-12 tablet by ity of tablet 00:00: mouth at [place] [address] bedtime. [facility] atorvastati 3-0 Yes 80mg Take 1 [facility] 80 mg 7-12 tablet by ity of tablet 00:00: mouth at [place] [address] bedtime. [facility] atorvastati 0 Yes 80mg Take 1 [facility] 80 mg 7-12 tablet by ity of tablet 00:00: mouth at [place] [address] bedtime. [facility] atorvastati 0 Yes 80mg Take 1 [facility] 80 mg 7-12 tablet by ity of tablet 00:00: mouth at [place] [address] bedtime. [facility] atorvastati 0 Yes 80mg Take 1 [facility] 80 mg 7-12 tablet by ity of tablet 00:00: mouth at [place] [address] bedtime. [facility] atorvastati 0 Yes 80mg Take 1 [facility] 80 mg 7-12 tablet by ity of tablet 00:00: mouth at [place] [address] bedtime. [facility] atorvastati 0 Yes 80mg Take 1 [facility] 80 mg 7-12 tablet by ity of tablet 00:00: mouth at [place] [address] bedtime. [facility] atorvastati 0 Yes 80mg Take 1 [facility] 80 mg 7-12 tablet by ity of tablet 00:00: mouth at [place] [address] bedtime. [facility] atorvastati 0 Yes 80mg Take 1 [facility] 80 mg 7-12 tablet by ity of tablet 00:00: mouth at [place] [address] bedtime. [facility] atorvastati 0 Yes 80mg Take 1 [facility] 80 mg 7-12 tablet by ity of tablet 00:00: mouth at [place] [address] bedtime. [facility] warfarin 1 0 Yes [id number] 2mg Take 2 [facility] mg tablet 7-07 tablets by ity of 00:00: mouth [place] 00 every Medical evening. Branch Take 1mg x3 days, then 2mg x 4 days warfarin 1 0 Yes [id number] 2mg Take 2 [facility] mg tablet 7-07 tablets by ity of 00:00: mouth [place] 00 every Medical evening. Branch Take 1mg x3 days, then 2mg x 4 days warfarin 1 0 Yes [id number] 2mg Take 2 [facility] mg tablet 7-07 tablets by ity of 00:00: mouth [place] 00 every Medical evening. Branch Take 1mg x3 days, then 2mg x 4 days warfarin 1 0 Yes [id number] 2mg Take 2 [facility] mg tablet 7-07 tablets by ity of 00:00: mouth [place] 00 every Medical evening. Branch Take 1mg x3 days, then 2mg x 4 days warfarin 0 Yes [id number] 2mg Take 2 [facility] mg tablet 7-07 tablets by ity of 00:00: mouth [place] 00 every Medical evening. Branch Take 1mg x3 days, then 2mg x 4 days warfarin Yes [id number] 2mg Take 2 [facility] mg tablet 7-07 tablets by ity of 00:00: mouth [place] 00 every Medical evening. Branch Take 1mg x3 days, then 2mg x 4 days warfarin Yes [id number] 2mg Take 2 [facility] mg tablet 7-07 tablets by ity of 00:00: mouth [place] 00 every Medical evening. Branch Take 1mg x3 days, then 2mg x 4 days warfarin Yes [id number] 2mg Take 2 [facility] mg tablet 7-07 tablets by ity of 00:00: mouth [place] 00 every Medical evening. Branch Take 1mg x3 days, then 2mg x 4 days warfarin Yes [id number] 2mg Take 2 [facility] mg tablet 7-07 tablets by ity of 00:00: mouth [place] 00 every Medical evening. Branch Take 1mg x3 days, then 2mg x 4 days warfarin Yes [id number] 2mg Take 2 [facility] mg tablet 7-07 tablets by ity of 00:00: mouth [place] 00 every Medical evening. Branch Take 1mg x3 days, then 2mg x 4 days warfarin Yes [id number] 2mg Take 2 [facility] mg tablet 7-07 tablets by ity of 00:00: mouth [place] 00 every Medical evening. Branch Take 1mg x3 days, then 2mg x 4 days warfarin Yes [id number] 2mg Take 2 [facility] mg tablet 7-07 tablets by ity of 00:00: mouth [place] 00 every Medical evening. Branch Take 1mg x3 days, then 2mg x 4 days warfarin 0 Yes [id number] 2mg Take 2 [facility] mg tablet 7-07 tablets by ity of 00:00: mouth [place] 00 every Medical evening. Branch Take 1mg x3 days, then 2mg x 4 days warfarin Yes [id number] 2mg Take 2 [facility] mg tablet 7-07 tablets by ity of 00:00: mouth [place] 00 every Medical evening. Branch Take 1mg x3 days, then 2mg x 4 days warfarin Yes [id number] 2mg Take 2 [facility] mg tablet 7-07 tablets by ity of 00:00: mouth [place] 00 every Medical evening. Branch Take 1mg x3 days, then 2mg x 4 days warfarin Yes [id number] 2mg Take 2 [facility] mg tablet 7-07 tablets by ity of 00:00: mouth [place] 00 every Medical evening. Branch Take 1mg x3 days, then 2mg x 4 days warfarin Yes [id number] 2mg Take 2 [facility] mg tablet 7-07 tablets by ity of 00:00: mouth [place] 00 every Medical evening. Branch Take 1mg x3 days, then 2mg x 4 days warfarin Yes [id number] 2mg Take 2 [facility] mg tablet 7-07 tablets by ity of 00:00: mouth [place] 00 every Medical evening. Branch Take 1mg x3 days, then 2mg x 4 days warfarin Yes [id number] 2mg Take 2 [facility] mg tablet 7-07 tablets by ity of 00:00: mouth [place] 00 every Medical evening. Branch Take 1mg x3 days, then 2mg x 4 days warfarin Yes [id number] 2mg Take 2 [facility] mg tablet 7-07 tablets by ity of 00:00: mouth [place] 00 every Medical evening. Branch Take 1mg x3 days, then 2mg x 4 days warfarin Yes [id number] 2mg Take 2 [facility] mg tablet 7-07 tablets by ity of 00:00: mouth [place] 00 every Medical evening. Branch Take 1mg x3 days, then 2mg x 4 days warfarin Yes [id number] 2mg Take 2 [facility] mg tablet 7-07 tablets by ity of 00:00: mouth [place] 00 every Medical evening. Branch Take 1mg x3 days, then 2mg x 4 days warfarin Yes [id number] 2mg Take 2 [facility] mg tablet 7-07 tablets by ity of 00:00: mouth [place] 00 every Medical evening. Branch Take 1mg x3 days, then 2mg x 4 days warfarin 1 Yes [id number] 2mg Take 2 [facility] mg tablet 7-07 tablets by ity of 00:00: mouth [place] 00 every Medical evening. Branch Take 1mg x3 days, then 2mg x 4 days warfarin 1 Yes [id number] 2mg Take 2 [facility] mg tablet 7-07 tablets by ity of 00:00: mouth [place] 00 every Medical evening. Branch Take 1mg x3 days, then 2mg x 4 days warfarin 1 Yes [id number] 2mg Take 2 [facility] mg tablet 7- tablets by ity of 00:00: mouth [place] 00 every Medical evening. Branch Take 1mg x3 days, then 2mg x 4 days warfarin 1 Yes [id number] 2mg Take 2 [facility] mg tablet 7- tablets by ity of 00:00: mouth [place] 00 every Medical evening. Branch Take 1mg x3 days, then 2mg x 4 days warfarin 1 Yes [id number] 2mg Take 2 [facility] mg tablet 7- tablets by ity of 00:00: mouth [place] 00 every Medical evening. Branch Take 1mg x3 days, then 2mg x 4 days warfarin 1 Yes [id number] 2mg Take 2 [facility] mg tablet 7- tablets by ity of 00:00: mouth [place] 00 every Medical evening. Branch Take 1mg x3 days, then 2mg x 4 days warfarin 1 2022- No [id number] 2mg Take 2 [facility] mg tablet 10-19 tablets by ity of 00:00: 00:00 mouth [place] 00 :00 every Medical evening. Branch Take 1mg x3 days, then 2mg x 4 days warfarin 1 2022- No [id number] 2mg Take 2 [facility] mg tablet 10-19 tablets by ity of 00:00: 00:00 mouth [place] 00 :00 every Medical evening. Branch Take 1mg x3 days, then 2mg x 4 days alendronate 2022-0 2022- No 70mg Take 1 [facility] vers 70 mg -01-06 tablet by ity of tablet 00:00: 00:00 mouth. [place] 00 :00 [facility] Branch ezetimibe 0 Yes [id number] 10mg Take 1 [facility] (ZETIA) 10 4-18 tablet by [facility] of mg tablet 00:00: mouth [place] 00 the Medical morning. Branch ezetimibe 3-0 Yes [id number] 10mg Take 1 [facility] (ZETIA) 10 4-18 tablet by [facility] mg tablet 00:00: mouth [place] 00 the Medical morning. Branch ezetimibe 2023-0 Yes [id number] 10mg Take 1 [facility] (ZETIA) 10 4-18 tablet by [facility] mg tablet 00:00: mouth [place] 00 the Medical morning. Branch ezetimibe 3-0 Yes [id number] 10mg Take 1 [facility] (ZETIA) 10 4-18 tablet by [facility] mg tablet 00:00: mouth [place] 00 the Medical morning. Branch ezetimibe 3-0 Yes [id number] 10mg Take 1 [facility] (ZETIA) 10 4-18 tablet by [facility] of mg tablet 00:00: mouth [place] 00 the Medical morning. Branch ezetimibe 3-0 Yes [id number] 10mg Take 1 [facility] (ZETIA) 10 4-18 tablet by [facility] of mg tablet 00:00: mouth [place] 00 the Medical morning. Branch ezetimibe 3-0 Yes [id number] 10mg Take 1 [facility] (ZETIA) 10 4-18 tablet by [facility] of mg tablet 00:00: mouth [place] 00 the Medical morning. Branch ezetimibe 3-0 Yes [id number] 10mg Take 1 [facility] (ZETIA) 10 4-18 tablet by [facility] of mg tablet 00:00: mouth [place] 00 the Medical morning. Branch ezetimibe 3-0 Yes [id number] 10mg Take 1 [facility] (ZETIA) 10 4-18 tablet by [facility] of mg tablet 00:00: mouth [place] 00 the Medical morning. Branch ezetimibe 2023-0 Yes [id number] 10mg Take 1 [facility] (ZETIA) 10 4-18 tablet by [facility] of mg tablet 00:00: mouth [place] 00 the Medical morning. Branch ezetimibe 2023-0 Yes [id number] 10mg Take 1 [facility] (ZETIA) 10 4-18 tablet by [facility] of mg tablet 00:00: mouth [place] 00 the Medical morning. Branch ezetimibe 3-0 Yes [id number] 10mg Take 1 [facility] (ZETIA) 10 4-18 tablet by [facility] of mg tablet 00:00: mouth [place] 00 the Medical morning. Branch ezetimibe 2023-0 Yes [id number] 10mg Take 1 [facility] (ZETIA) 10 4-18 tablet by [facility] of mg tablet 00:00: mouth [place] 00 the Medical morning. Branch ezetimibe 3-0 Yes [id number] 10mg Take 1 [facility] (ZETIA) 10 4-18 tablet by [facility] of mg tablet 00:00: mouth [place] 00 the Medical morning. Branch ezetimibe 3-0 Yes [id number] 10mg Take 1 [facility] (ZETIA) 10 4-18 tablet by [facility] of mg tablet 00:00: mouth [place] 00 the Medical morning. Branch ezetimibe 3-0 Yes [id number] 10mg Take 1 [facility] (ZETIA) 10 4-18 tablet by [facility] of mg tablet 00:00: mouth [place] 00 the Medical morning. Branch ezetimibe 3-0 Yes [id number] 10mg Take 1 [facility] (ZETIA) 10 4-18 tablet by [facility] of mg tablet 00:00: mouth [place] 00 the Medical morning. Branch ezetimibe 3-0 Yes [id number] 10mg Take 1 [facility] (ZETIA) 10 4-18 tablet by [facility] of mg tablet 00:00: mouth [place] 00 the Medical morning. Branch ezetimibe 3-0 Yes [id number] 10mg Take 1 [facility] (ZETIA) 10 4-18 tablet by [facility] of mg tablet 00:00: mouth [place] 00 the Medical morning. Branch ezetimibe 2023-0 Yes [id number] 10mg Take 1 [facility] (ZETIA) 10 4-18 tablet by [facility] of mg tablet 00:00: mouth [place] 00 the Medical morning. Branch ezetimibe 2023-0 Yes [id number] 10mg Take 1 [facility] (ZETIA) 10 4-18 tablet by [facility] of mg tablet 00:00: mouth [place] 00 the Medical morning. Branch ezetimibe 3-0 Yes [id number] 10mg Take 1 [facility] (ZETIA) 10 4-18 tablet by [facility] of mg tablet 00:00: mouth [place] 00 the Medical morning. Branch ezetimibe 2023-0 Yes [id number] 10mg Take 1 [facility] (ZETIA) 10 4-18 tablet by [facility] of mg tablet 00:00: mouth [place] 00 the Medical morning. Branch ezetimibe 3-0 Yes [id number] 10mg Take 1 [facility] (ZETIA) 10 4-18 tablet by [facility] of mg tablet 00:00: mouth [place] 00 the Medical morning. Branch ezetimibe 3-0 Yes [id number] 10mg Take 1 [facility] (ZETIA) 10 4-18 tablet by [facility] of mg tablet 00:00: mouth [place] 00 the Medical morning. Branch ezetimibe 3-0 Yes [id number] 10mg Take 1 [facility] (ZETIA) 10 4-18 tablet by [facility] of mg tablet 00:00: mouth [place] 00 the Medical morning. Branch ezetimibe 3-0 Yes [id number] 10mg Take 1 [facility] (ZETIA) 10 4-18 tablet by [facility] of mg tablet 00:00: mouth [place] 00 the Medical morning. Branch ezetimibe 3-0 Yes [id number] 10mg Take 1 [facility] (ZETIA) 10 4-18 tablet by [facility] of mg tablet 00:00: mouth [place] 00 the Medical morning. Branch ezetimibe 3-0 Yes [id number] 10mg Take 1 [facility] (ZETIA) 10 4-18 tablet by [facility] of mg tablet 00:00: mouth [place] 00 the Medical morning. Branch ezetimibe 2023-0 Yes [id number] 10mg Take 1 [facility] (ZETIA) 10 4-18 tablet by [facility] of mg tablet 00:00: mouth [place] 00 the Medical morning. Branch ezetimibe 2023-0 Yes [id number] 10mg Take 1 [facility] (ZETIA) 10 4-18 tablet by [facility] of mg tablet 00:00: mouth [place] 00 the Medical morning. Branch ezetimibe 3-0 Yes [id number] 10mg Take 1 [facility] (ZETIA) 10 4-18 tablet by [facility] of mg tablet 00:00: mouth [place] 00 the Medical morning. Branch ezetimibe 2023-0 Yes [id number] 10mg Take 1 [facility] (ZETIA) 10 4-18 tablet by [facility] of mg tablet 00:00: mouth [place] 00 the Medical morning. Branch ezetimibe 3-0 Yes [id number] 10mg Take 1 [facility] (ZETIA) 10 4-18 tablet by [facility] of mg tablet 00:00: mouth [place] 00 the Medical morning. Branch ezetimibe 3-0 Yes [id number] 10mg Take 1 [facility] (ZETIA) 10 4-18 tablet by [facility] of mg tablet 00:00: mouth [place] 00 the Medical morning. Branch ezetimibe 3-0 Yes [id number] 10mg Take 1 [facility] (ZETIA) 10 4-18 tablet by [facility] of mg tablet 00:00: mouth [place] 00 the Medical morning. Branch ezetimibe 3-0 Yes [id number] 10mg Take 1 [facility] (ZETIA) 10 4-18 tablet by [facility] of mg tablet 00:00: mouth [place] 00 the Medical morning. Branch ezetimibe 3-0 Yes [id number] 10mg Take 1 [facility] (ZETIA) 10 4-18 tablet by [facility] of mg tablet 00:00: mouth [place] 00 the Medical morning. Branch ezetimibe 3-0 Yes [id number] 10mg Take 1 [facility] (ZETIA) 10 4-18 tablet by [facility] of mg tablet 00:00: mouth [place] 00 the Medical morning. Branch ezetimibe 2023-0 Yes [id number] 10mg Take 1 [facility] (ZETIA) 10 4-18 tablet by [facility] of mg tablet 00:00: mouth [place] 00 the Medical morning. Branch ezetimibe 2023-0 Yes [id number] 10mg Take 1 [facility] (ZETIA) 10 4-18 tablet by [facility] of mg tablet 00:00: mouth [place] 00 the Medical morning. Branch ezetimibe 3-0 Yes [id number] 10mg Take 1 [facility] (ZETIA) 10 4-18 tablet by [facility] of mg tablet 00:00: mouth [place] 00 the Medical morning. Branch ezetimibe 2023-0 Yes [id number] 10mg Take 1 [facility] (ZETIA) 10 4-18 tablet by [facility] of mg tablet 00:00: mouth [place] 00 the Medical morning. Branch ezetimibe 3-0 Yes [id number] 10mg Take 1 [facility] (ZETIA) 10 4-18 tablet by [facility] of mg tablet 00:00: mouth [place] 00 the Medical morning. Branch ezetimibe 3-0 Yes [id number] 10mg Take 1 [facility] (ZETIA) 10 4-18 tablet by [facility] of mg tablet 00:00: mouth [place] 00 the Medical morning. Branch ezetimibe 3-0 Yes [id number] 10mg Take 1 [facility] (ZETIA) 10 4-18 tablet by [facility] of mg tablet 00:00: mouth [place] 00 the Medical morning. Branch ezetimibe 3-0 Yes [id number] 10mg Take 1 [facility] (ZETIA) 10 4-18 tablet by [facility] of mg tablet 00:00: mouth [place] 00 the Medical morning. Branch ezetimibe 3-0 Yes [id number] 10mg Take 1 [facility] (ZETIA) 10 4-18 tablet by [facility] of mg tablet 00:00: mouth [place] 00 the Medical morning. Branch ezetimibe 3-0 Yes [id number] 10mg Take 1 [facility] (ZETIA) 10 4-18 tablet by [facility] of mg tablet 00:00: mouth [place] 00 the Medical morning. Branch ezetimibe 2023-0 Yes [id number] 10mg Take 1 [facility] (ZETIA) 10 4-18 tablet by [facility] mg tablet 00:00: mouth [place] 00 the Medical morning. Branch ezetimibe 2023-0 Yes [id number] 10mg Take 1 [facility] nivers (ZETIA) 10 4-18 tablet by [facility] mg tablet 00:00: mouth [place] 00 the Medical morning. Branch ezetimibe 3-0 Yes [id number] 10mg Take 1 [facility] (ZETIA) 10 4-18 tablet by [facility] mg tablet 00:00: mouth [place] 00 the Medical morning. Branch ezetimibe 2023-0 Yes [id number] 10mg Take 1 [facility] (ZETIA) 10 4-18 tablet by [facility] mg tablet 00:00: mouth [place] 00 the Medical morning. Branch ezetimibe 3-0 Yes [id number] 10mg Take 1 [facility] (ZETIA) 10 4-18 tablet by [facility] mg tablet 00:00: mouth [place] 00 the Medical morning. Branch ezetimibe 3-0 Yes [id number] 10mg Take 1 [facility] (ZETIA) 10 4-18 tablet by [facility] mg tablet 00:00: mouth [place] 00 the Medical morning. Branch ezetimibe 3-0 Yes [id number] 10mg Take 1 [facility] (ZETIA) 10 4-18 tablet by [facility] mg tablet 00:00: mouth [place] 00 the Medical morning. Branch ezetimibe 3-0 Yes [id number] 10mg Take 1 [facility] (ZETIA) 10 4-18 tablet by [facility] mg tablet 00:00: mouth [place] 00 the Medical morning. Branch ezetimibe 3-0 Yes [id number] 10mg Take 1 [facility] (ZETIA) 10 4-18 tablet by [facility] mg tablet 00:00: mouth [place] 00 the Medical morning. Branch ezetimibe 3-0 Yes [id number] 10mg Take 1 [facility] (ZETIA) 10 4-18 tablet by [facility] mg tablet 00:00: mouth [place] 00 the Medical morning. Branch ezetimibe 2023-0 Yes [id number] 10mg Take 1 [facility] (ZETIA) 10 4-18 tablet by [facility] mg tablet 00:00: mouth [place] 00 the Medical morning. Branch ezetimibe 2023-0 Yes [id number] 10mg Take 1 [facility] (ZETIA) 10 4-18 tablet by [facility] mg tablet 00:00: mouth [place] 00 the Medical morning. Branch ezetimibe 2022-0 Yes [id number] 10mg Take 1 [facility] (ZETIA) 10 4-18 tablet by [facility] mg tablet 00:00: mouth [place] 00 the Medical morning. Branch ezetimibe 3-0 Yes [id number] 10mg Take 1 [facility] (ZETIA) 10 4-18 tablet by [facility] mg tablet 00:00: mouth [place] 00 the Medical morning. Branch ezetimibe 2022-0 Yes [id number] 10mg Take 1 [facility] (ZETIA) 10 4-18 tablet by [facility] mg tablet 00:00: mouth [place] 00 the Medical morning. Branch ezetimibe 2022-0 Yes [id number] 10mg Take 1 [facility] (ZETIA) 10 4-18 tablet by [facility] mg tablet 00:00: mouth [place] 00 the Medical morning. Branch ezetimibe 2022-0 Yes [id number] 10mg Take 1 [facility] (ZETIA) 10 4-18 tablet by [facility] mg tablet 00:00: mouth [place] 00 the Medical morning. Branch ezetimibe 2022-0 Yes [id number] 10mg Take 1 [facility] (ZETIA) 10 4-18 tablet by [facility] mg tablet 00:00: mouth [place] 00 the Medical morning. Branch ezetimibe 2022-0 Yes [id number] 10mg Take 1 [facility] (ZETIA) 10 4-18 tablet by [facility] mg tablet 00:00: mouth [place] 00 the Medical morning. Branch ezetimibe 2022-0 Yes [id number] 10mg Take 1 [facility] (ZETIA) 10 4-18 tablet by [facility] mg tablet 00:00: mouth [place] 00 the Medical morning. Branch ezetimibe 3-0 3- No [id number] 10mg Take 1 [facility] (ZETIA) 10 4-18 09-29 tablet by it[facility] of mg tablet 00:00: 00:00 mouth in [place] 00 :00 the Medical morning. Branch alendronate 2022-0 Yes 70mg 70 mg, [facility] ers (FOSAMAX) 3 Oral, ity of tablet 70 06:00: QWEEKLY, [...] 35 Medical tablet Branch NaCl 0.9% Yes [id number] 250mL at 20 [facility] (NS) IV 2-27 mL/hr, IV it[facility] of infusion 16:15: Infusion, [place] 250 mL 00 CONTINUOUS Medical , Starting Branch on Sat06/11/22 at 1015, Until Discontinu ed, Routine&lt ;br>KVO
lidocaine 2022- No [id number] 15mL 15 mL, [facility] 2% viscous 06-11 9107 Oral, ity of (LIDOCAINE 16:15: 16:15 ONCE, 1 [place] VISCOUS) 2 00 :00 dose, On Medic al % solution Mon Branch 15 mL 06/11/22 at 1015, Routine FENTanyl PF 2022- No [id number] 50ug 50 mcg, [facility] (SUBLIMAZE 06-11 Slow IV ity o f (PF)) 16:15: 16:15 Push, [place] injection 00 :00 ONCE, 1 Medical 50 mcg dose, On Branch 06/11/22 at 1015, Routine midazolam 2022- No [id number] 1mg 1 mg, IV [facility] (VERSED) 06-1107 Push, ity of injection 1 16:15: 16:15 ONCE, 1 [place] mg 00 :00 dose, On Medical Mon Branch 06/11/22 at 1015, Routine warfarin 1 Yes [id number] 2mg Take 2 [facility] mg tablet 2-27 tablets by ity of 00:00: mouth [place] 00 every Medical evening. Branch Alternate take 1mg x3 days, then 2mg x 4 days warfarin 1 2022-0 Yes [id number] 2mg Take 2 [facility] mg tablet 2-27 tablets by ity of 00:00: mouth [place] 00 every Medical evening. Branch Alternate take 1mg x3 days, then 2mg x 4 days warfarin 1 2022-0 Yes [id number] 2mg Take 2 [facility] mg tablet 2-27 tablets by ity of 00:00: mouth [place] 00 every Medical evening. Branch Alternate take 1mg x3 days, then 2mg x 4 days warfarin 1 2022-0 Yes [id number] 2mg Take 2 [facility] mg tablet 2-27 tablets by ity of 00:00: mouth [place] 00 every Medical evening. Branch Alternate take 1mg x3 days, then 2mg x 4 days warfarin 2022-0 Yes [id number] 2mg Take 2 [facility] mg tablet 2-27 tablets by ity of 00:00: mouth [place] 00 every Medical evening. Branch Alternate take 1mg x3 days, then 2mg x 4 days warfarin 2022-0 Yes [id number] 2mg Take 2 [facility] mg tablet 2-27 tablets by ity of 00:00: mouth [place] 00 every Medical evening. Branch Alternate take 1mg x3 days, then 2mg x 4 days warfarin 2022-0 Yes [id number] 2mg Take 2 [facility] mg tablet 2-27 tablets by ity of 00:00: mouth [place] 00 every Medical evening. Branch Alternate take 1mg x3 days, then 2mg x 4 days warfarin 2022-0 Yes [id number] 2mg Take 2 [facility] mg tablet 2-27 tablets by ity of 00:00: mouth [place] 00 every Medical evening. Branch Alternate take 1mg x3 days, then 2mg x 4 days warfarin 1 2022-0 Yes [id number] 2mg Take 2 [facility] mg tablet 2-27 tablets by ity of 00:00: mouth [place] 00 every Medical evening. Branch Alternate take 1mg x3 days, then 2mg x 4 days warfarin 1 2022-0 Yes [id number] 2mg Take 2 [facility] mg tablet 2-27 tablets by ity of 00:00: mouth [place] 00 every Medical evening. Branch Alternate take 1mg x3 days, then 2mg x 4 days warfarin 1 0 Yes [id number] 2mg Take 2 [facility] mg tablet 2-27 tablets by ity of 00:00: mouth [place] 00 every Medical evening. Branch Alternate take 1mg x3 days, then 2mg x 4 days warfarin 1 2022-0 Yes [id number] 2mg Take 2 [facility] mg tablet 2-27 tablets by ity of 00:00: mouth [place] 00 every Medical evening. Branch Alternate take 1mg x3 days, then 2mg x 4 days warfarin 1 2022-0 Yes [id number] 2mg Take 2 [facility] mg tablet 2-27 tablets by ity of 00:00: mouth [place] 00 every Medical evening. Branch Alternate take 1mg x3 days, then 2mg x 4 days warfarin 0 Yes [id number] 2mg Take 2 [facility] mg tablet 2-27 tablets by ity of 00:00: mouth [place] 00 every Medical evening. Branch Alternate take 1mg x3 days, then 2mg x 4 days warfarin Yes [id number] 2mg Take 2 [facility] mg tablet 2-27 tablets by ity of 00:00: mouth [place] 00 every Medical evening. Branch Alternate take 1mg x3 days, then 2mg x 4 days warfarin 0 Yes [id number] 2mg Take 2 [facility] mg tablet 2-27 tablets by ity of 00:00: mouth [place] 00 every Medical evening. Branch Alternate take 1mg x3 days, then 2mg x 4 days warfarin 0 Yes [id number] 2mg Take 2 [facility] mg tablet 2-27 tablets by ity of 00:00: mouth [place] 00 every Medical evening. Branch Alternate take 1mg x3 days, then 2mg x 4 days warfarin 0 Yes [id number] 2mg Take 2 [facility] mg tablet 2-27 tablets by ity of 00:00: mouth [place] 00 every Medical evening. Branch Alternate take 1mg x3 days, then 2mg x 4 days warfarin 1 0 Yes [id number] 2mg Take 2 [facility] mg tablet 2-27 tablets by ity of 00:00: mouth [place] 00 every Medical evening. Branch Alternate take 1mg x3 days, then 2mg x 4 days warfarin 1 0 Yes [id number] 2mg Take 2 [facility] mg tablet 2-27 tablets by ity of 00:00: mouth [place] 00 every Medical evening. Branch Alternate take 1mg x3 days, then 2mg x 4 days warfarin 1 2022-0 Yes [id number] 2mg Take 2 [facility] mg tablet 2-27 tablets by ity of 00:00: mouth [place] 00 every Medical evening. Branch Alternate take 1mg x3 days, then 2mg x 4 days warfarin 1 2022-0 Yes [id number] 2mg Take 2 [facility] mg tablet 2-27 tablets by ity of 00:00: mouth [place] 00 every Medical evening. Branch Alternate take 1mg x3 days, then 2mg x 4 days warfarin 1 2022-0 Yes [id number] 2mg Take 2 [facility] mg tablet 2-27 tablets by ity of 00:00: mouth [place] 00 every Medical evening. Branch Alternate take 1mg x3 days, then 2mg x 4 days warfarin 1 2022-0 Yes [id number] 2mg Take 2 [facility] mg tablet 2-27 tablets by ity of 00:00: mouth [place] 00 every Medical evening. Branch Alternate take 1mg x3 days, then 2mg x 4 days warfarin 2022-0 Yes [id number] 2mg Take 2 [facility] mg tablet 2-27 tablets by ity of 00:00: mouth [place] 00 every Medical evening. Branch Alternate take 1mg x3 days, then 2mg x 4 days warfarin 2022-0 Yes [id number] 2mg Take 2 [facility] mg tablet 2-27 tablets by ity of 00:00: mouth [place] 00 every Medical evening. Branch Alternate take 1mg x3 days, then 2mg x 4 days warfarin 2022-0 Yes [id number] 2mg Take 2 [facility] mg tablet 2-27 tablets by ity of 00:00: mouth [place] 00 every Medical evening. Branch Alternate take 1mg x3 days, then 2mg x 4 days warfarin 1 2022-0 Yes [id number] 2mg Take 2 [facility] mg tablet 2-27 tablets by ity of 00:00: mouth [place] 00 every Medical evening. Branch Alternate take 1mg x3 days, then 2mg x 4 days warfarin 1 2022-0 Yes [id number] 2mg Take 2 [facility] mg tablet 2-27 tablets by ity of 00:00: mouth [place] 00 every Medical evening. Branch Alternate take 1mg x3 days, then 2mg x 4 days warfarin 1 2022-0 Yes [id number] 2mg Take 2 [facility] mg tablet 2-27 tablets by ity of 00:00: mouth [place] 00 every Medical evening. Branch Alternate take 1mg x3 days, then 2mg x 4 days warfarin 1 2022-0 Yes [id number] 2mg Take 2 [facility] mg tablet 2-27 tablets by ity of 00:00: mouth [place] 00 every Medical evening. Branch Alternate take 1mg x3 days, then 2mg x 4 days warfarin 2022-0 Yes [id number] 2mg Take 2 [facility] mg tablet 2-27 tablets by ity of 00:00: mouth [place] 00 every Medical evening. Branch Alternate take 1mg x3 days, then 2mg x 4 days warfarin 1 2022-0 Yes [id number] 2mg Take 2 [facility] mg tablet 2-27 tablets by ity of 00:00: mouth [place] 00 every Medical evening. Branch Alternate take 1mg x3 days, then 2mg x 4 days warfarin 2022- Yes [id number] 2mg Take 2 [facility] mg tablet 2-27 tablets by ity of 00:00: mouth [place] 00 every Medical evening. Branch Alternate take 1mg x3 days, then 2mg x 4 days warfarin 0 Yes [id number] 2mg Take 2 [facility] mg tablet 2-27 tablets by ity of 00:00: mouth [place] 00 every Medical evening. Branch Alternate take 1mg x3 days, then 2mg x 4 days warfarin 0 Yes [id number] 2mg Take 2 [facility] mg tablet 2-27 tablets by ity of 00:00: mouth [place] 00 every Medical evening. Branch Alternate take 1mg x3 days, then 2mg x 4 days warfarin 2022-0 Yes [id number] 2mg Take 2 [facility] mg tablet 2-27 tablets by ity of 00:00: mouth [place] 00 every Medical evening. Branch Alternate take 1mg x3 days, then 2mg x 4 days warfarin 1 2022-0 Yes [id number] 2mg Take 2 [facility] mg tablet 2-27 tablets by ity of 00:00: mouth [place] 00 every Medical evening. Branch Alternate take 1mg x3 days, then 2mg x 4 days warfarin 1 2022-0 Yes [id number] 2mg Take 2 [facility] mg tablet 2-27 tablets by ity of 00:00: mouth [place] 00 every Medical evening. Branch Alternate take 1mg x3 days, then 2mg x 4 days warfarin 1 Yes [id number] 2mg Take 2 [facility] mg tablet 06-11 tablets by ity of 00:00: mouth [place] 00 every Medical evening. [place] Alternate take 1mg x3 days, then 2mg x 4 days warfarin 1 Yes [id number] 2mg Take 2 [facility] mg tablet 06-11 tablets by ity of 00:00: mouth [place] 00 every Medical evening. [place] Alternate take 1mg x3 days, then 2mg x 4 days warfarin 2 2022- Yes Warfarin Uni vers mg tablet 06-11 Oral ity of 00:00: active [place] [facility] warfarin 2 Yes Warfarin Uni vers mg tablet 06-11 Oral ity of 00:00: active [place] [facility] warfarin 2 Yes Warfarin Uni vers mg tablet 06-11 Oral ity of 00:00: active [place] [facility] warfarin 2 Yes Warfarin Uni vers mg tablet 06-11 Oral ity of 00:00: active [place] [facility] warfarin 2 2022- No Warfarin [facility] mg tablet 06-11 Oral ity of 00:00: 00:00 active [place] 00 :00 [facility] dofetilide 2022- No 2 (two) Uni vers 125 mcg 06-11 times a ity of capsule 00:00: 00:00 day [place] 00 :00 [facility] dofetilide 2022- No 2 (two) Uni vers 125 mcg 06-11 times a ity of capsule 00:00: 00:00 day [place] 00 :00 [facility] warfarin 1 2022- No [id number] 2mg Take 2 [facility] mg tablet 06-11- tablets by ity of 00:00: 00:00 mouth [place] 00 :00 every Medical evening. [place] Alternate take 1mg x3 days, then 2mg x 4 days warfarin 1 2022-2022- No [id number] 2mg Take 2 [facility] mg tablet 06-11- tablets by ity of 00:00: 00:00 mouth [place] 00 :00 every Medical evening. [place] Alternate take 1mg x3 days, then 2mg x 4 days dofetilide 2022-2022- No [id number] 250ug Take 1 [facility] 250 mcg 2-27 05-29 capsule by ity o f capsule 00:00: 04:59 mouth [place] 00 :00 every 12 Medical (twelve) Branch hours for 90 days. dofetilide 2022- No [id number] 250ug Take 1 [facility] 250 mcg 2-27 05-29 capsule by ity o f capsule 00:00: 04:59 mouth [place] 00 :00 every 12 Medical (twelve) Branch hours for 90 days. dofetilide 2022- No [id number] 250ug Take 1 [facility] 250 mcg 2-27 05-29 capsule by ity o f capsule 00:00: 04:59 mouth [place] 00 :00 every 12 Medical (twelve) Branch hours for 90 days. dofetilide 2022- No [id number] 250ug Take 1 [facility] 250 mcg 2-27 05-29 capsule by ity o f capsule 00:00: 04:59 mouth [place] 00 :00 every 12 Medical (twelve) Branch hours for 90 days. dofetilide 2022- No [id number] 250ug Take 1 [facility] 250 mcg 2-27 05-29 capsule by ity o f capsule 00:00: 04:59 mouth [place] 00 :00 every 12 Medical (twelve) Branch hours for 90 days. dofetilide 2022- No [id number] 250ug Take 1 [facility] 250 mcg 2-27 05-29 capsule by ity o f capsule 00:00: 04:59 mouth [place] 00 :00 every 12 Medical (twelve) Branch hours for 90 days. dofetilide 2022- No [id number] 250ug Take 1 [facility] 250 mcg 2-27 05-29 capsule by ity o f capsule 00:00: 04:59 mouth [place] 00 :00 every 12 Medical (twelve) Branch hours for 90 days. dofetilide 2022- No [id number] 250ug Take 1 [facility] 250 mcg 2-27 05-29 capsule by ity o f capsule 00:00: 04:59 mouth [place] 00 :00 every 12 Medical (twelve) Branch hours for 90 days. dofetilide 2022- No [id number] 250ug Take 1 [facility] 250 mcg 2-27 05-29 capsule by ity o f capsule 00:00: 04:59 mouth [place] 00 :00 every 12 Medical (twelve) Branch hours for 90 days. dofetilide 2022- No [id number] 250ug Take 1 [facility] 250 mcg 2-27 05-29 capsule by ity o f capsule 00:00: 04:59 mouth [place] 00 :00 every 12 Medical (twelve) Branch hours for 90 days. dofetilide 2022- No [id number] 250ug Take 1 [facility] 250 mcg 2-27 05-29 capsule by ity o f capsule 00:00: 04:59 mouth [place] 00 :00 every 12 Medical (twelve) Branch hours for 90 days. dofetilide 2022- No [id number] 250ug Take 1 [facility] 250 mcg 2-27 05-29 capsule by ity o f capsule 00:00: 04:59 mouth [place] 00 :00 every 12 Medical (twelve) Branch hours for 90 days. dofetilide 2022- No [id number] 250ug Take 1 [facility] 250 mcg 2-27 05-29 capsule by ity o f capsule 00:00: 04:59 mouth [place] 00 :00 every 12 Medical (twelve) Branch hours for 90 days. dofetilide 2022- No [id number] 250ug Take 1 [facility] 250 mcg 2-27 05-29 capsule by ity o f capsule 00:00: 04:59 mouth [place] 00 :00 every 12 Medical (twelve) Branch hours for 90 days. dofetilide 2022- No [id number] 250ug Take 1 [facility] 250 mcg 2-27 05-29 capsule by ity o f capsule 00:00: 04:59 mouth [place] 00 :00 every 12 Medical (twelve) Branch hours for 90 days. dofetilide 2022- No [id number] 250ug Take 1 [facility] 250 mcg 2-27 05-29 capsule by ity o f capsule 00:00: 04:59 mouth [place] 00 :00 every 12 Medical (twelve) Branch hours for 90 days. dofetilide 2022- No [id number] 250ug Take 1 [facility] 250 mcg 2-27 05-29 capsule by ity o f capsule 00:00: 04:59 mouth [place] 00 :00 every 12 Medical (twelve) Branch hours for 90 days. dofetilide 2022- No [id number] 250ug Take 1 [facility] 250 mcg 2-27 05-29 capsule by ity o f capsule 00:00: 04:59 mouth [place] 00 :00 every 12 Medical (twelve) Branch hours for 90 days. dofetilide 2022- No [id number] 250ug Take 1 [facility] 250 mcg 2-27 05-29 capsule by ity o f capsule 00:00: 04:59 mouth [place] 00 :00 every 12 Medical (twelve) Branch hours for 90 days. dofetilide 2022- No [id number] 250ug Take 1 [facility] 250 mcg 2-27 05-29 capsule by ity o f capsule 00:00: 04:59 mouth [place] 00 :00 every 12 Medical (twelve) Branch hours for 90 days. dofetilide 2022- No [id number] 250ug Take 1 [facility] 250 mcg 2-27 05-29 capsule by ity o f capsule 00:00: 04:59 mouth [place] 00 :00 every 12 Medical (twelve) Branch hours for 90 days. dofetilide 2022- No [id number] 250ug Take 1 [facility] 250 mcg 2-27 05-29 capsule by ity o f capsule 00:00: 04:59 mouth [place] 00 :00 every 12 Medical (twelve) Branch hours for 90 days. dofetilide 2022- No [id number] 250ug Take 1 [facility] 250 mcg 2-27 05-29 capsule by ity o f capsule 00:00: 04:59 mouth [place] 00 :00 every 12 Medical (twelve) Branch hours for 90 days. dofetilide 2022- No [id number] 250ug Take 1 [facility] 250 mcg 2-27 05-29 capsule by ity o f capsule 00:00: 04:59 mouth [place] 00 :00 every 12 Medical (twelve) Branch hours for 90 days. dofetilide 2022- No [id number] 250ug Take 1 [facility] 250 mcg 2-27 05-29 capsule by ity o f capsule 00:00: 04:59 mouth [place] 00 :00 every 12 Medical (twelve) Branch hours for 90 days. dofetilide 2022- No [id number] 250ug Take 1 [facility] 250 mcg 2-27 05-29 capsule by ity o f capsule 00:00: 04:59 mouth [place] 00 :00 every 12 Medical (twelve) Branch hours for 90 days. dofetilide 2022- No [id number] 250ug Take 1 [facility] 250 mcg 2-27 05-29 capsule by ity o f capsule 00:00: 04:59 mouth [place] 00 :00 every 12 Medical (twelve) Branch hours for 90 days. dofetilide 2022- No [id number] 250ug Take 1 [facility] 250 mcg 2-27 05-29 capsule by ity o f capsule 00:00: 04:59 mouth [place] 00 :00 every 12 Medical (twelve) Branch hours for 90 days. dofetilide 2022- No [id number] 250ug Take 1 [facility] 250 mcg 2-27 05-29 capsule by ity o f capsule 00:00: 04:59 mouth [place] 00 :00 every 12 Medical (twelve) Branch hours for 90 days. dofetilide 2022- No [id number] 250ug Take 1 [facility] 250 mcg 2-27 05-29 capsule by ity o f capsule 00:00: 04:59 mouth [place] 00 :00 every 12 Medical (twelve) Branch hours for 90 days. dofetilide 2022- No [id number] 250ug Take 1 [facility] 250 mcg 2-27 05-29 capsule by ity o f capsule 00:00: 04:59 mouth [place] 00 :00 every 12 Medical (twelve) Branch hours for 90 days. dofetilide 2022- No [id number] 250ug Take 1 [facility] 250 mcg 2-27 05-29 capsule by ity o f capsule 00:00: 04:59 mouth [place] 00 :00 every 12 Medical (twelve) Branch hours for 90 days. dofetilide 2022- No [id number] 250ug Take 1 [facility] 250 mcg 2-27 05-29 capsule by ity o f capsule 00:00: 04:59 mouth [place] 00 :00 every 12 Medical (twelve) Branch hours for 90 days. dofetilide 2022- No [id number] 250ug Take 1 [facility] 250 mcg 2-27 05-29 capsule by ity o f capsule 00:00: 04:59 mouth [place] 00 :00 every 12 Medical (twelve) Branch hours for 90 days. dofetilide 2022-2022- No [id number] 250ug Take 1 [facility] 250 mcg 06-11 capsule by ity o f capsule 00:00: 04:59 mouth [place] 00 :00 every 12 Medical (twelve) Branch hours for 90 days. enoxaparin 2022-2022- No [id number] 40mg inject 0.4 Univers 40 mg/0.4 2-27 03-05 mL under ity o f mL 00:00: 05:59 the skin [place] injection 00 :00 in the [facility] Branch for 5 days. enoxaparin 2022-2022- No [id number] 40mg inject 0.4 Univers 40 mg/0.4 2-27 03-05 mL under ity o f mL 00:00: 05:59 the skin [place] injection 00 :00 in the [facility] Branch for 5 days. enoxaparin 2022-2022- No [id number] 40mg inject 0.4 [facility] 40 mg/0.4 2-27 03-05 mL under ity o f mL 00:00: 05:59 the skin [place] injection 00 :00 in the [facility] Branch for 5 days. enoxaparin 2022-2022- No [id number] 40mg inject 0.4 [facility] 40 mg/0.4 2-27 03-05 mL under ity o f mL 00:00: 05:59 the skin [place] injection 00 :00 in the [facility] Branch for 5 days. enoxaparin 2022-2022- No [id number] 40mg inject 0.4 [facility] 40 mg/0.4 2-27 03-05 mL under ity o f mL 00:00: 05:59 the skin [place] injection 00 :00 in the [facility] Branch for 5 days. enoxaparin 2022-2022- No [id number] 40mg inject 0.4 Univers 40 mg/0.4 2-27 03-05 mL under ity o f mL 00:00: 05:59 the skin [place] injection 00 :00 in the [facility] Branch for 5 days. enoxaparin 2022-2022- No [id number] 40mg inject 0.4 [facility] 40 mg/0.4 2-27 03- mL under ity o f mL 00:00: 05:59 the skin [place] injection 00 :00 in the Medical morning Branch for 5 days. dofetilide 2022- No [id number] 250ug Take 1 [facility] 250 mcg 06-11 capsule by ity o f capsule 00:00: 05:59 mouth [place] 00 :00 every 12 Medical (twelve) Branch hours for 2 days. warfarin 2 2022- No [id number] 2mg Take 1 [facility] mg tablet 06-11 tablet by ity of 00:00: 05:59 mouth [place] 00 :00 every Medical evening Branch for 2 days. dofetilide 2022- No [id number] 250ug Take 1 [facility] 250 mcg 06-11 capsule by ity o f capsule 00:00: 05:59 mouth [place] 00 :00 every 12 Medical (twelve) Branch hours for 2 days. warfarin 2 2022- No [id number] 2mg Take 1 [facility] mg tablet 06-11 tablet by ity of 00:00: 05:59 mouth [place] 00 :00 every Medical evening Branch for 2 days. warfarin 2 2022- No [id number] 2mg Take 1 [facility] mg tablet 06-11 tablet by ity of 00:00: 05:59 mouth [place] 00 :00 every Medical evening Branch for 2 days. warfarin 2 2022- No [id number] 2mg Take 1 [facility] mg tablet 06-11 tablet by ity of 00:00: 05:59 mouth [place] 00 :00 every Medical evening Branch for 2 days. warfarin 2 2022- No [id number] 2mg Take 1 [facility] mg tablet 06-11- tablet by ity of 00:00: 05:59 mouth [place] 00 :00 every Medical evening Branch for 2 days. warfarin 2 2022- No [id number] 2mg Take 1 [facility] mg tablet 06-11 tablet by ity of 00:00: 05:59 mouth [place] 00 :00 every Medical evening Branch for 2 days. warfarin 2 2022- No [id number] 2mg Take 1 [facility] mg tablet 2-27 03-03 tablet by ity of 00:00: 05:59 mouth [place] 00 :00 every Medical evening Branch for 2 days. enoxaparin 2022-2022- No [id number] 40mg inject 0.4 [facility] 40 mg/0.4 06-11 03-02 mL under ity o f mL 00:00: 05:59 the skin [place] injection 00 :00 in the Medical morning Branch for 2 days. enoxaparin 2022-2022- No [id number] 40mg inject 0.4 [facility] 40 mg/0.4 06-11 03-02 mL under ity o f mL 00:00: 05:59 the skin [place] injection 00 :00 in the Medical morning Branch for 2 days. dofetilide 2022-2022- No [id number] 250ug Take 1 [facility] 250 mcg 06-11- capsule by ity o f capsule 00:00: 05:59 mouth [place] 00 :00 every 12 [facility] Branch hours for 2 days. enoxaparin 2022-2022- No [id number] 40mg inject 0.4 [facility] 40 mg/0.4 06-11- mL under ity o f mL 00:00: 05:59 the skin [place] injection 00 :00 in the [facility] morning Branch for 2 days. dofetilide 2022-2022- No [id number] 250ug Take 1 [facility] 250 mcg 06-11- capsule by ity o f capsule 00:00: 05:59 mouth [place] 00 :00 every 12 [facility] Branch hours for 2 days. enoxaparin 2022-2022- No [id number] 40mg inject 0.4 Univers 40 mg/0.4 06-11- mL under ity o f mL 00:00: 05:59 the skin [place] injection 00 :00 in the [facility] morning Branch for 2 days. dofetilide 2022-0 2022- No [id number] 250ug Take 1 [facility] 250 mcg 06-11- capsule by ity o f capsule 00:00: 05:59 mouth [place] 00 :00 every 12 [facility] Branch hours for 2 days. enoxaparin 2022-2022- No [id number] 40mg inject 0.4 [facility] 40 mg/0.4 06-11 03-02 mL under ity o f mL 00:00: 05:59 the skin [place] injection 00 :00 in the Medical morning Branch for 2 days. dofetilide 2022- No [id number] 250ug Take 1 [facility] 250 mcg 06-11 capsule by ity o f capsule 00:00: 05:59 mouth [place] 00 :00 every 12 Medical (twelve) Branch hours for 2 days. enoxaparin 2022- No [id number] 40mg inject 0.4 [facility] 40 mg/0.4 06-11 mL under ity o f mL 00:00: 05:59 the skin [place] injection 00 :00 in the Medical morning Branch for 2 days. dofetilide 2022- No [id number] 250ug Take 1 [facility] 250 mcg 06-11 capsule by ity o f capsule 00:00: 05:59 mouth [place] 00 :00 every 12 Medical (twelve) Branch hours for 2 days. enoxaparin No [id number] 40mg inject 0.4 [facility] 40 mg/0.4 06-11 [...] :00 dose, On Medi tyrone 800 mg [place] Branch 06/10/22 at 0815, Routine magnesium 2022- [...] INITIAL INFUSION RATE.&nbsp ; _ &nb sp;FOR [facility], [facility], AND [facility] ONLY &nbs p; - aPTT [...] , Starting [place] mL vial) 12 on [facility] Medical 06/09/22 at Branch 1027, [...] Routine dofetilide Yes 250ug 250 mcg, [facility] [place] (TIKOSYN) 06-08 Oral, ity of capsule 250 02:00: Q12H, [place] mcg 00 First dose Medical (after Branch last modificati on) on [facility] 06/07/22 at 2000, Until Discontinu ed, Routine
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 approving Restricted medication : MARIIA [...] [place] mg 00 First dose Medical on [facility] Branch 06/07/22 at 0900, Until Discontinu [...] mg 00 :24 First dose Medical on [facility] Branch 06/07/22 at 0900, Until Discontinu ed, Routine HYDROcodone 0 Yes 1{tbl} 1 tablet, Univers -acetaminop 06-07 Oral, ity of hen (NORCO) 14:58: Q6HPRN, [place] 10-325 mg 30 Starting Medica l tablet 1 on [facility] tablet 06/07/22 at 0858, Until Discontinu ed, Routine, Pain (scale 7-10), Pain (scale 4-6) gabapentin 2022- No 300mg 300 mg, [facility] [place] (NEURONTIN) 06-07 Oral, ity of capsule 300 07:45: 07:14 ONCE, 1 [place] mg 00 :00 dose, On [facility] 06/07/22 at 0145, Routine KCL No 20meq 20 mEq, Univers (KLOR-CON 06-07 Oral, ity of M20) tablet 05:00: 06:48 ONCE, 1 [place] 20 mEq 00 :00 dose, On [facility] 06/06/22 at 2315, Routine magnesium 2022- No 2g 2 g, IV Univ ers sulfate in 06-07 Piggyback, it y of water 2 05:00: 08:15 Administer [place] gram/50 mL 00 :00 over 60 Medica l (4 %) Minutes, Branch infusion 2 ONCE, 1 g dose, On [facility] 06/06/22 at 2315, Routine atorvastati Yes 80mg 80 mg, Univ ers n (LIPITOR) 06-07 Oral, QHS, it y of tablet 80 03:00: First dose [place] mg 00 on [facility] 06/06/22 at Branch 2100, Until Discontinu ed, Routine dofetilide 2022- No 125ug 125 mcg, U nivers (TIKOSYN) 06-07 Oral, ity of capsule 125 02:00: 16:35 Q12H, [place] mcg 00 :11 First dose Medical on Sat Branch 06/06/22 at 2000, Until Discontinu ed, Routine
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 [place] 00 :00 Medical Branch furosemide 2022-0 2024- No 20mg Take 1 Univ ers 20 mg 2-13 -15 tablet by ity of tablet 00:00: 05:59 mouth. [place] 00 :00 Medical Branch furosemide 2022-0 2024- No 20mg Take 1 Univ ers 20 mg 2-13 -15 tablet by ity of tablet 00:00: 05:59 mouth. [place] 00 :00 Medical Branch furosemide 2022-0 2024- No 20mg Take 1 Univ ers 20 mg 2-13 -15 tablet by ity of tablet 00:00: 05:59 mouth. [place] 00 :00 Medical Branch furosemide 2022-0 2024- No 20mg QD Take [...] :00 by mouth Center daily. furosemide 2022-0 3- No 20mg Take 1 Univ ers 20 mg 2-13 - tablet by ity of tablet 00:00: 00:00 mouth. [place] 00 :00 [facility] warfarin 2022-0 Yes 1mg QD Take [address] [facility] (COUMADIN, 2-12 by mouth [facility]) 1 16:44: daily. Medi tyrone MG tablet [address] [place] [address] warfarin 2023-0 Yes 1mg QD Take [address] [facility] (COUMADIN, 2-12 by mouth [facility]) 1 16:44: daily. Medi tyrone MG tablet 11 [place] warfarin 2023-0 Yes 1mg QD Take [address] [facility] (COUMADIN, 2-12 by mouth [facility]) 1 16:44: daily. Medi tyrone MG tablet 11 [place] warfarin 2023-0 Yes 1mg QD Take [address] [facility] (COUMADIN, 2-12 by mouth [facility]) 1 16:44: daily. Medi tyrone MG tablet 11 [place] warfarin 2023-0 Yes 1mg QD Take [address] [facility] (COUMADIN, 2-12 by mouth [facility]) 1 16:44: daily. Medi tyrone MG tablet 11 [place] warfarin 3-0 Yes 1mg QD Take [address] [facility] (COUMADIN, 2-12 by mouth [facility]) 1 16:44: daily. Medi tyrone MG tablet 11 [place] warfarin 3-0 Yes 1mg QD Take [address] [facility] (COUMADIN, 2-12 by mouth [facility]) 1 16:44: daily. Medi tyrone MG tablet 11 [place] warfarin 3-0 Yes 1mg QD Take [address] [facility] (COUMADIN, 2-12 by mouth [facility]) 1 16:44: daily. Medi tyrone MG tablet 11 [place] warfarin 3-0 Yes 1mg QD Take [address] [facility] (COUMADIN, 2-12 by mouth [facility]) 1 16:44: daily. Medi tyrone MG tablet 11 [place] warfarin 3-0 Yes 1mg QD Take [address] [facility] (COUMADIN, 2-12 by mouth [facility]) 1 16:44: daily. Medi tyrone MG tablet 11 [place] warfarin 3-0 Yes 1mg QD Take [address] [facility] (COUMADIN, 2-12 by mouth [facility]) 1 16:44: daily. Medi tyrone MG tablet 11 [place] warfarin 3-0 Yes 1mg QD Take [address] [facility] (COUMADIN, 2-12 by mouth [facility]) 1 16:44: daily. Medi tyrone MG tablet 11 [place] amiodarone 3-0 Yes Take [address] [...] 00:00 [place] 00 :00 Medical Branch warfarin 0 Yes 1mg QD Take [address] [facility] (COUMADIN, 2-04 by mouth [facility]) 1 13:52: daily. Medi tyrone MG tablet 50 [place] warfarin 0 Yes 1mg QD Take [address] [facility] (COUMADIN, 2-04 by mouth [facility]) 1 13:52: daily. Medi tyrone MG tablet 50 [place] warfarin 0 Yes 1mg QD Take [address] [facility] (COUMADIN, 2-04 by mouth [facility]) 1 13:52: daily. Medi tyrone MG tablet 50 [place] warfarin 0 Yes 1mg QD Take [address] [facility] (COUMADIN, 2-04 by mouth [facility]) 1 13:52: daily. Medi tyrone MG tablet 50 [place] alendronate Yes Univer s 70 mg 1-26 ity of tablet 00:00: Medical Branch zolpidem 10 Yes 1 tablet [...] at bedtime ity of 00:00: as needed [place] [address] Medical Branch alendronate 2022-0 Yes Univer s 70 mg 1-26 ity of tablet 00:00: [place] [address] Medical Branch zolpidem 10 2022-0 Yes 1 [...] 70 mg 1-26 ity of tablet 00:00: [place] [address] Medical Branch zolpidem 10 2022-0 Yes 1 tablet [place] mg tablet 1-26 at bedtime ity of 00:00: as needed [place] Medical Branch alendronate 2022-0 Yes Univer s 70 mg 1-26 ity of tablet 00:00: [place] [address] Medical Branch zolpidem 10 2022-0 Yes 1 tablet [place] mg tablet 1-26 at bedtime ity of 00:00: as needed [place] Medical Branch alendronate 2022-0 Yes Univer s 70 mg 1-26 ity of tablet 00:00: [place] [address] Medical Branch zolpidem 10 2022-0 Yes 1 tablet [place] mg tablet 1-26 at bedtime ity of 00:00: as needed [place] Medical Branch alendronate 2022-0 Yes Univer s 70 mg 1-26 ity of tablet 00:00: [place] [address] Medical Branch zolpidem 10 2022-0 Yes 1 tablet [place] mg tablet 1-26 at bedtime ity of 00:00: as needed [place] Medical Branch alendronate 2022-0 Yes Univer s 70 mg 1-26 ity of tablet 00:00: [place] [address] Medical Branch zolpidem 10 2022-0 Yes 1 tablet [place] mg tablet 1-26 at bedtime ity of 00:00: as needed [place] Medical Branch alendronate 2022-0 Yes Univer s 70 mg 1-26 ity of tablet 00:00: [place] [address] Medical Branch zolpidem 10 2022-0 Yes 1 [...] 70 mg 1-26 ity of tablet 00:00: [place] [address] Medical Branch zolpidem 10 2022-0 Yes 1 tablet [place] mg tablet 1-26 at bedtime ity of 00:00: as needed [place] Medical Branch alendronate 2022-0 Yes Univer s 70 mg 1-26 ity of tablet 00:00: [place] [address] Medical Branch zolpidem 10 2022-0 Yes 1 tablet [place] mg tablet 1-26 at bedtime ity of 00:00: as needed [place] Medical Branch alendronate 2022-0 Yes Univer s 70 mg 1-26 ity of tablet 00:00: [place] [address] Medical Branch zolpidem 10 2022-0 Yes 1 tablet [place] mg tablet 1-26 at bedtime ity of 00:00: as needed [place] Medical Branch alendronate 2022-0 Yes Univer s 70 mg 1-26 ity of tablet 00:00: [place] [address] Medical Branch zolpidem 10 2022-0 Yes 1 tablet [place] mg tablet 1-26 at bedtime ity of 00:00: as needed [place] Medical Branch alendronate 2022-0 Yes Univer s 70 mg 1-26 ity of tablet 00:00: [place] [address] Medical Branch zolpidem 10 2022-0 Yes 1 tablet [place] mg tablet 1-26 at bedtime ity of 00:00: as needed [place] Medical Branch alendronate 2022-0 Yes Univer s 70 mg 1-26 ity of tablet 00:00: [place] [address] Medical Branch zolpidem 10 2022-0 Yes 1 tablet [place] mg tablet 1-26 at bedtime ity of 00:00: as needed [place] [address] Medical Branch alendronate 2022-0 Yes Univer s [...] tablet 00:00: [place] Medical Branch zolpidem 10 0 Yes 1 tablet [place] mg tablet 1-26 at bedtime ity of 00:00: as needed Medical Branch alendronate 0 Yes Univer s 70 mg 1-26 ity of tablet 00:00: [place] Medical Branch zolpidem 10 0 Yes 1 tablet [place] mg tablet 1-26 at bedtime ity of 00:00: as needed Medical Branch alendronate 0 Yes Univer s 70 mg 1-26 ity of tablet 00:00: [place] Medical Branch zolpidem 10 0 Yes 1 [...] 70 mg 1-26 ity of tablet 00:00: [place] [address] Medical Branch zolpidem 10 2022-0 Yes 1 tablet [place] mg tablet 1-26 at bedtime ity of 00:00: as needed [place] Medical Branch alendronate 2022-0 Yes Univer s 70 mg 1-26 ity of tablet 00:00: [place] [address] Medical Branch zolpidem 10 2022-0 Yes 1 [...] 70 mg 1-26 ity of tablet 00:00: [place] [address] Medical Branch zolpidem 10 2022-0 Yes 1 tablet [place] mg tablet 1-26 at bedtime ity of 00:00: as needed [place] Medical Branch alendronate 2022-0 Yes Univer s 70 mg 1-26 ity of tablet 00:00: [place] [address] Medical Branch zolpidem 10 2022-0 Yes 1 tablet [place] mg tablet 1-26 at bedtime ity of 00:00: as needed [place] Medical Branch alendronate 2022-0 Yes Univer s 70 mg 1-26 ity of tablet 00:00: [place] [address] Medical Branch zolpidem 10 2022-0 Yes 1 tablet [place] mg tablet 1-26 at bedtime ity of 00:00: as needed Medical Branch alendronate 2022-0 Yes Univer s 70 mg 1-26 ity of tablet 00:00: [place] [address] Medical Branch zolpidem 10 2022-0 Yes 1 tablet [place] mg tablet 1-26 at bedtime ity of 00:00: as needed [place] [facility] Branch alendronate 2022-0 Yes Univer s 70 mg 1-26 ity of tablet 00:00: [place] [address] Medical Branch zolpidem 10 2022-0 Yes 1 [...] 70 mg 1-26 ity of tablet 00:00: [place] [address] Medical Branch zolpidem 10 2022-0 Yes 1 tablet [place] mg tablet 1-26 at bedtime ity of 00:00: as needed [place] [address] Medical Branch alendronate 2022-0 Yes Univer s 70 mg 1-26 ity of tablet 00:00: [place] [address] Medical Branch zolpidem 10 2022-0 Yes 1 tablet [place] mg tablet 1-26 at bedtime ity of 00:00: as needed Medical Branch alendronate 2022-0 Yes Univer s 70 mg 1-26 ity of tablet 00:00: [place] [facility] Branch zolpidem 10 2022-0 Yes 1 tablet [place] mg tablet 1-26 at bedtime ity of 00:00: as needed [place] [address] Medical Branch alendronate 2022-0 Yes Univer s 70 mg 1-26 ity of tablet 00:00: [place] [address] Medical Branch zolpidem 10 2022-0 Yes 1 tablet [place] mg tablet 1-26 at bedtime ity of 00:00: as needed [place] [address] Medical Branch alendronate 2022-0 Yes Univer s 70 mg 1-26 ity of tablet 00:00: [place] [address] Medical Branch zolpidem 10 2022-0 Yes 1 tablet [place] mg tablet 1-26 at bedtime ity of 00:00: as needed [place] Medical Branch alendronate 2022-0 Yes Univer s 70 mg 1-26 ity of tablet 00:00: Medical Branch zolpidem 10 2022-0 Yes 1 tablet [place] mg tablet 1-26 at bedtime ity of 00:00: as needed Medical Branch zolpidem 10 0 Yes 1 tablet [place] mg tablet 1-26 at bedtime ity of 00:00: as needed Medical Branch zolpidem 10 0 Yes 1 tablet [place] mg tablet 1-26 at bedtime ity of 00:00: as needed [place] [facility] Branch zolpidem 10 0 Yes 1 tablet [place] mg tablet 1-26 at bedtime ity of 00:00: as needed [place] [facility] Branch zolpidem 10 0 Yes 1 tablet Un [facility] mg tablet 1-26 at bedtime ity of 00:00: as needed [place] [facility] Branch zolpidem 10 0 Yes 1 tablet [place] mg tablet 1-26 at bedtime ity of 00:00: as needed [place] [facility] Branch zolpidem 10 0 Yes 1 tablet [place] mg tablet 1-26 at bedtime ity of 00:00: as needed [place] [facility] Branch zolpidem 10 2022-0 Yes 1 tablet [place] mg tablet 1-26 at bedtime ity of 00:00: as needed [place] [facility] Branch zolpidem 10 2022-0 Yes 1 tablet [place] mg tablet 1-26 at bedtime ity of 00:00: as needed [place] [facility] Branch zolpidem 10 2022-0 Yes 1 tablet [place] mg tablet 1-26 at bedtime ity of 00:00: as needed [place] [facility] Branch zolpidem 10 2022-0 Yes 1 tablet [place] mg tablet 1-26 at bedtime ity of 00:00: as needed [place] [facility] Branch zolpidem 10 2022-0 Yes 1 tablet [place] mg tablet 1-26 at bedtime ity of 00:00: as needed [place] [facility] Branch zolpidem 10 2022-0 Yes 1 tablet [place] mg tablet 1-26 at bedtime ity of 00:00: as needed Medical Branch zolpidem 10 Yes 1 tablet [place] mg tablet 05-10 at bedtime ity of 00:00: as needed Medical Branch zolpidem 10 Yes 1 tablet [place] mg tablet 05-10 at bedtime ity of 00:00: as needed Medical Branch zolpidem 10 Yes 1 tablet [place] mg tablet 05-10 at bedtime ity of 00:00: as needed Medical Branch zolpidem 10 Yes 1 tablet [place] mg tablet 05-10 at bedtime ity of 00:00: as needed [place] [facility] Branch zolpidem 10 Yes 1 tablet [place] mg tablet 05-10 at bedtime ity of 00:00: as needed Medical Branch alendronate 2022- No Unive rs 70 mg 05-10 ity of tablet 00:00: 00:00 [place] 00 :00 Medical Branch zolpidem 10 2022- No 10mg Take 1 Uni vers mg tablet 05-10 tablet by ity of 00:00: 00:00 mouth. [place] 00 :00 Medical Branch metoprolol 2022- No [id number] 25mg Take 1 Univers succinate 05-10 tablet by ity of XL (TOPROL 00:00: 04:59 mouth in [place] XL) 25 mg 00 :00 the Medical 24 hr morning Branch tablet for 90 days. metoprolol 2022- No [id number] 25mg Take 1 Univers succinate 05-10 tablet by ity of XL (TOPROL 00:00: 04:59 mouth in [place] XL) 25 mg 00 :00 the Medical 24 hr morning Branch tablet for 90 days. metoprolol 2022- No [id number] 25mg Take 1 Univers succinate 05-10 tablet by ity of XL (TOPROL 00:00: 04:59 mouth in [place] XL) 25 mg 00 :00 the Medical 24 hr morning Branch tablet for 90 days. metoprolol 2022- No [id number] 25mg Take 1 Univers succinate 1-26 04-27 tablet by ity of XL (TOPROL 00:00: 04:59 mouth in [place] XL) 25 mg 00 :00 the Medical 24 hr morning Branch tablet for 90 days. metoprolol 3- No [id number] 25mg Take 1 Univers succinate 1-26 04-27 tablet by ity of XL (TOPROL 00:00: 04:59 mouth in [place] XL) 25 mg 00 :00 the Medical 24 hr morning Branch tablet for 90 days. metoprolol 3- No [id number] 25mg Take 1 Univers succinate 1-26 04-27 tablet by ity of XL (TOPROL 00:00: 04:59 mouth in [place] XL) 25 mg 00 :00 the Medical 24 hr morning Branch tablet for 90 days. metoprolol 3- No [id number] 25mg Take 1 Univers succinate 1-26 02-27 tablet by ity of XL (TOPROL 00:00: 00:00 mouth in [place] XL) 25 mg 00 :00 the Medical 24 hr morning Branch tablet for 90 days. metoprolol 3- No [id number] 25mg Take 1 Univers succinate 1-26 02-27 tablet by ity of XL (TOPROL 00:00: 00:00 mouth in [place] XL) 25 mg 00 :00 the Medical 24 hr morning Branch tablet for 90 days. metoprolol 3- No [id number] 25mg Take 1 Univers succinate 1-26 02-27 tablet by ity of XL (TOPROL 00:00: 00:00 mouth in [place] XL) 25 mg 00 :00 the Medical 24 hr morning Branch tablet for 90 days. metoprolol 3- No [id number] 25mg Take 1 Univers succinate 1-26 02-27 tablet by ity of XL (TOPROL 00:00: 00:00 mouth in [place] XL) 25 mg 00 :00 the Medical 24 hr morning Branch tablet for 90 days. metoprolol 3- No [id number] 25mg Take 1 Univers succinate 1-26 02-27 tablet by ity of XL (TOPROL 00:00: 00:00 mouth in [place] XL) 25 mg 00 :00 the Medical 24 hr morning Branch tablet for 90 days. Diclofenac 2023-0 Yes Univers Sodium 1 % 1-25 ity of gel 00:00: [place] 00 Medical Branch Diclofenac 3-0 3- No Univer s Sodium 1 % 1-25 -27 ity of gel 00:00: 00:00 [place] 00 :00 Medical Branch Diclofenac 2022-0 2023- No Univer s Sodium 1 % 1-25 - ity of gel 00:00: 00:00 [place] 00 :00 Medical Branch Diclofenac 3-0 2023- No Univer s Sodium 1 % 1-25 -27 ity of gel 00:00: 00:00 [place] 00 :00 Medical Branch Diclofenac 3-0 2023- No Univer s Sodium 1 % 1-25 -27 ity of gel 00:00: 00:00 [place] 00 :00 Medical Branch Diclofenac 3-0 3- No Univer s Sodium 1 % 1-25 - ity of gel 00:00: 00:00 [place] 00 :00 Medical Branch ezetimibe 2021-04 Yes 10mg Take 1 Univer s (ZETIA) 10 2-19 tablet by ity of mg tablet 00:00: mouth [place] 00 the Medical morning. Branch metoprolol 2021-04 Yes [id number] 25mg Take 1 U nivers tartrate 25 2-19 tablet by ity of mg tablet 00:00: mouth [place] 00 the Medical morning Branch and 1 tablet in the evening. ezetimibe 2021-04 Yes 10mg Take 1 Univer s (ZETIA) 10 2-19 tablet by ity of mg tablet 00:00: mouth [place] 00 the Medical morning. Branch metoprolol 2021-04 Yes [id number] 25mg Take 1 U nivers tartrate 25 2-19 tablet by ity of mg tablet 00:00: mouth [place] 00 the Medical morning Branch and 1 tablet in the evening. ezetimibe 2021-04 Yes 10mg Take 1 Univer s (ZETIA) 10 2-19 tablet by ity of mg tablet 00:00: mouth [place] 00 the Medical morning. Branch metoprolol 2021-04 Yes [id number] 25mg Take 1 U nivers tartrate 25 2-19 tablet by ity of mg tablet 00:00: mouth [place] 00 the Medical morning Branch and 1 tablet in the evening. ezetimibe 2021-04 Yes 10mg Take 1 Univer s (ZETIA) 10 2-19 tablet by ity of mg tablet 00:00: mouth [place] 00 the Medical morning. Branch metoprolol 2021-04 Yes [id number] 25mg Take 1 U nivers tartrate 25 2-19 tablet by ity of mg tablet 00:00: mouth [place] 00 the Medical morning Branch and 1 tablet in the evening. ezetimibe 2021-04 Yes 10mg Take 1 Univer s (ZETIA) 10 2-19 tablet by ity of mg tablet 00:00: mouth [place] 00 the Medical morning. Branch metoprolol 2021-04 Yes [id number] 25mg Take 1 U nivers tartrate 25 2-19 tablet by ity of mg tablet 00:00: mouth [place] 00 the Medical morning Branch and 1 tablet in the evening. ezetimibe 2021-04 Yes 10mg Take 1 Univer s (ZETIA) 10 2-19 tablet by ity of mg tablet 00:00: mouth [place] 00 the Medical morning. Branch metoprolol 2021-04 Yes [id number] 25mg Take 1 U nivers tartrate 25 2-19 tablet by ity of mg tablet 00:00: mouth [place] 00 the Medical morning Branch and 1 tablet in the evening. ezetimibe 2021-04 Yes 10mg Take 1 Univer s (ZETIA) 10 2-19 tablet by ity of mg tablet 00:00: mouth [place] 00 the Medical morning. Branch metoprolol 2021-04 Yes [id number] 25mg Take 1 U nivers tartrate 25 [...] 2021-04- No 10mg Take 1 Unive rs 10 mg 06-0324 tablet by ity of tablet 00:00: 00:00 mouth [place] 00 :00 every Medical morning. Branch ezetimibe 2021-04- No 10mg Take 1 Unive rs (ZETIA) 10 06-03-18 tablet by ity of mg tablet 00:00: 00:00 mouth in [place] 00 :00 the Medical morning. Branch metoprolol 2021-04- No [id number] 25mg Take 1 Univers tartrate 25 06-03- tablet by it y of mg tablet 00:00: 00:00 mouth in [place] 00 :00 the Medical morning Branch and 1 tablet in the evening. metoprolol 2021-04- No [id number] 25mg Take 1 Univers tartrate 25 06-03 tablet by it y of mg tablet 00:00: 00:00 mouth in [place] 00 :00 the Medical morning Branch and 1 tablet in the evening. warfarin 2021-04 Yes [id number] 1mg Take 1 Univers mg tablet 2-01 tablet by ity o f 00:00: mouth [place] 00 every Medical evening. Branch Alternate take 1mg x3 days, then 2mg x 4 days warfarin 2021-04 Yes [id number] 1mg Take 1 Univers mg tablet 2-01 tablet by ity o f 00:00: mouth [place] 00 every Medical evening. Branch Alternate take 1mg x3 days, then 2mg x 4 days dofetilide 2021-04 Yes [id number] 125ug Take 1 Univers 125 mcg 2-01 capsule by ity of capsule 00:00: mouth [place] 00 every 12 Medical (twelve) Branch hours. warfarin 2021-04 Yes [id number] 1mg Take 1 Univers mg tablet 2-01 tablet by ity o f 00:00: mouth [place] 00 every Medical evening. Branch Alternate take 1mg x3 days, then 2mg x 4 days dofetilide 2021-04 Yes [id number] 125ug Take 1 Univers 125 mcg 2-01 capsule by ity of capsule 00:00: mouth [place] 00 every 12 Medical (twelve) Branch hours. warfarin 2021-04 Yes [id number] 1mg Take 1 Univers mg tablet 2-01 tablet by ity o f 00:00: mouth [place] 00 every Medical evening. Branch Alternate take 1mg x3 days, then 2mg x 4 days dofetilide 2021-04 Yes [id number] 125ug Take 1 Univers 125 mcg 2-01 capsule by ity of capsule 00:00: mouth [place] 00 every 12 Medical (twelve) Branch hours. warfarin 2021-04 Yes [id number] 1mg Take 1 Univers mg tablet 2-01 tablet by ity o f 00:00: mouth [place] 00 every Medical evening. Branch Alternate take 1mg x3 days, then 2mg x 4 days dofetilide 2021-04 Yes [id number] 125ug Take 1 Univers 125 mcg 2-01 capsule by ity of capsule 00:00: mouth [place] 00 every 12 Medical (twelve) Branch hours. warfarin 2021-04 Yes [id number] 1mg Take 1 Univers mg tablet 2-01 tablet by ity o f 00:00: mouth [place] 00 every Medical evening. Branch Alternate take 1mg x3 days, then 2mg x 4 days dofetilide 2021-04 Yes [id number] 125ug Take 1 Univers 125 mcg 2-01 capsule by ity of capsule 00:00: mouth [place] 00 every 12 Medical (twelve) Branch hours. warfarin 2021-04 Yes [id number] 1mg Take 1 Univers mg tablet 2-01 tablet by ity o f 00:00: mouth [place] 00 every Medical evening. Branch Alternate take 1mg x3 days, then 2mg x 4 days dofetilide 2021-04 Yes [id number] 125ug Take 1 Univers 125 mcg 2-01 capsule by ity of capsule 00:00: mouth [place] 00 every 12 Medical (twelve) Branch hours. warfarin 2021-04 Yes [id number] 1mg Take 1 Univers mg tablet 2-01 tablet by ity o f 00:00: mouth [place] 00 every Medical evening. Branch Alternate take 1mg x3 days, then 2mg x 4 days dofetilide 2021-04 Yes [id number] 125ug Take 1 Univers 125 mcg 2-01 capsule by ity of capsule 00:00: mouth [place] 00 every 12 Medical (twelve) Branch hours. warfarin 2021-04 Yes [id number] 1mg Take 1 Univers mg tablet 2-01 tablet by ity o f 00:00: mouth [place] 00 every Medical evening. Branch Alternate take 1mg x3 days, then 2mg x 4 days dofetilide 2021-04 Yes [id number] 125ug Take 1 Univers 125 mcg 2-01 capsule by ity of capsule 00:00: mouth [place] 00 every 12 Medical (twelve) Branch hours. warfarin 2021-04 Yes [id number] 1mg Take 1 Univers mg tablet 2-01 tablet by ity o f 00:00: mouth [place] 00 every Medical evening. Branch Alternate take 1mg x3 days, then 2mg x 4 days dofetilide 2021-04 Yes [id number] 125ug Take 1 Univers 125 mcg 2-01 capsule by ity of capsule 00:00: mouth [place] 00 every 12 Medical (twelve) Branch hours. warfarin 2021-04 Yes [id number] 1mg Take 1 Univers mg tablet 2-01 tablet by ity o f 00:00: mouth [place] 00 every Medical evening. Branch Alternate take 1mg x3 days, then 2mg x 4 days dofetilide 2021-04 Yes [id number] 125ug Take 1 Univers 125 mcg 2-01 capsule by ity of capsule 00:00: mouth [place] 00 every 12 Medical (twelve) Branch hours. warfarin 2021-04 Yes [id number] 1mg Take 1 Univers mg tablet 2-01 tablet by ity o f 00:00: mouth [place] 00 every Medical evening. Branch Alternate take 1mg x3 days, then 2mg x 4 days dofetilide 2021-04 Yes [id number] 125ug Take 1 Univers 125 mcg 2-01 capsule by ity of capsule 00:00: mouth [place] 00 every 12 Medical (twelve) Branch hours. warfarin 2021-04 Yes [id number] 1mg Take 1 Univers mg tablet 2-01 tablet by ity o f 00:00: mouth [place] 00 every Medical evening. Branch Alternate take 1mg x3 days, then 2mg x 4 days dofetilide 2021-04 Yes [id number] 125ug Take 1 Univers 125 mcg 2-01 capsule by ity of capsule 00:00: mouth [place] 00 every 12 Medical (twelve) Branch hours. warfarin 2021-04 Yes [id number] 1mg Take 1 Univers mg tablet 2-01 tablet by ity o f 00:00: mouth [place] 00 every Medical evening. Branch Alternate take 1mg x3 days, then 2mg x 4 days dofetilide 2021-04 Yes [id number] 125ug Take 1 Univers 125 mcg 2-01 capsule by ity of capsule 00:00: mouth [place] 00 every 12 Medical (twelve) Branch hours. warfarin 2021-04 Yes [id number] 1mg Take 1 Univers mg tablet 2-01 tablet by ity o f 00:00: mouth [place] 00 every Medical evening. Branch Alternate take 1mg x3 days, then 2mg x 4 days dofetilide 2021-04 Yes [id number] 125ug Take 1 Univers 125 mcg 2-01 capsule by ity of capsule 00:00: mouth [place] 00 every 12 Medical (twelve) Branch hours. warfarin 2021-04 Yes [id number] 1mg Take 1 Univers mg tablet 2- tablet by ity o f 00:00: mouth [place] 00 every Medical evening. Branch Alternate take 1mg x3 days, then 2mg x 4 days dofetilide 2021-04 Yes [id number] 125ug Take 1 [facility] 125 mcg 2-01 capsule by [facility] capsule 00:00: mouth [place] 00 every 12 Medical (twelve) Branch hours. warfarin 2021-04- No [id number] 1mg Take 1 [facility] mg tablet 2-04 16- tablet by [facility] 00:00: 00:00 mouth [place] 00 :00 every Medical evening. Branch Alternate take 1mg x3 days, then 2mg x 4 days dofetilide 2021-04- No [id number] 125ug Take 1 [facility] 125 mcg 2-04 16- capsule by [facility] f capsule 00:00: 00:00 mouth [place] 00 :00 every 12 Medical (twelve) Branch hours. warfarin 2021-04- No [id number] 1mg Take 1 [facility] mg tablet 2-04 16-27 tablet by [facility] of 00:00: 00:00 mouth [place] 00 :00 every Medical evening. Branch Alternate take 1mg x3 days, then 2mg x 4 days dofetilide 2021-04- No [id number] 125ug Take 1 [facility] 125 mcg 2-04 16- capsule by [facility] o f capsule 00:00: 00:00 mouth [place] 00 :00 every 12 Medical (twelve) Branch hours. warfarin 2021-04- No [id number] 1mg Take 1 [facility] mg tablet 05-16 tablet by [facility] of 00:00: 00:00 mouth [place] 00 :00 every Medical evening. Branch Alternate take 1mg x3 days, then 2mg x 4 days dofetilide 2021-04- No [id number] 125ug Take 1 [facility] 125 mcg 05-16 capsule by [facility] f capsule 00:00: 00:00 mouth [place] 00 :00 every 12 Medical (twelve) Branch hours. warfarin 2021-04- No [id number] 1mg Take 1 [facility] mg tablet 05-16 tablet by [facility] of 00:00: 00:00 mouth [place] 00 :00 every Medical evening. Branch Alternate take 1mg x3 days, then 2mg x 4 days dofetilide 2021-04- No [id number] 125ug Take 1 [facility] 125 mcg 05-16 capsule by [facility] f capsule 00:00: 00:00 mouth [place] 00 :00 every 12 Medical (twelve) Branch hours. warfarin 2021-04- No [id number] 1mg Take 1 [facility] mg tablet 05-16 tablet by [facility] of 00:00: 00:00 mouth [place] 00 :00 every Medical evening. Branch Alternate take 1mg x3 days, then 2mg x 4 days dofetilide 2021-04- No [id number] 125ug Take 1 [facility] 125 mcg 05-16 capsule by [facility] f capsule 00:00: 00:00 mouth [place] 00 :00 every 12 Medical (twelve) Branch hours. warfarin 2021-04 Yes [id number] 1mg Take 1 [facility] mg tablet 1-01 tablet by [facility] o f 00:00: mouth [place] 00 every Medical evening. Branch Alternate take 1mg x4 days, then 2mg x 3 days warfarin 2021-04 Yes [id number] 1mg Take 1 [facility] mg tablet 1-01 tablet by [facility] o f 00:00: mouth [place] 00 every Medical evening. Branch Alternate take 1mg x4 days, then 2mg x 3 days warfarin 2021-04 Yes [id number] 1mg Take 1 [facility] mg tablet 1-01 tablet by [facility] o f 00:00: mouth [place] 00 every Medical evening. Branch Alternate take 1mg x4 days, then 2mg x 3 days warfarin 2021-04 Yes [id number] 1mg Take 1 [facility] mg tablet 1- tablet by [facility] o f 00:00: mouth [place] 00 every Medical evening. Branch Alternate take 1mg x4 days, then 2mg x 3 days warfarin 2021-04 Yes [id number] 1mg Take 1 [facility] mg tablet 1- tablet by [facility] o f 00:00: mouth [place] 00 every Medical evening. Branch Alternate take 1mg x4 days, then 2mg x 3 days warfarin 2021-04 Yes [id number] 1mg Take 1 [facility] mg tablet 1- tablet by [facility] o f 00:00: mouth [place] 00 every Medical evening. Branch Alternate take 1mg x4 days, then 2mg x 3 days warfarin 2021-04 Yes [id number] 1mg Take 1 [facility] mg tablet 1- tablet by [facility] o f 00:00: mouth [place] 00 every Medical evening. Branch Alternate take 1mg x4 days, then 2mg x 3 days warfarin 2021-04 Yes [id number] 1mg Take 1 [facility] mg tablet 1- tablet by [facility] o f 00:00: mouth [place] 00 every Medical evening. Branch Alternate take 1mg x4 days, then 2mg x 3 days warfarin 2021-04 Yes [id number] 1mg Take 1 [facility] mg tablet 1- tablet by [facility] o f 00:00: mouth [place] 00 every Medical evening. Branch Alternate take 1mg x4 days, then 2mg x 3 days warfarin 2021-04 Yes [id number] 1mg Take 1 [facility] mg tablet 1- tablet by [facility] o f 00:00: mouth [place] 00 every Medical evening. Branch Alternate take 1mg x4 days, then 2mg x 3 days warfarin 2021-04 Yes [id number] 1mg Take 1 [facility] mg tablet 1- tablet by [facility] o f 00:00: mouth [place] 00 every Medical evening. Branch Alternate take 1mg x4 days, then 2mg x 3 days warfarin 2021-04- No [id number] 1mg Take 1 [facility] mg tablet 1- 12- tablet by [facility] of 00:00: 00:00 mouth [place] 00 :00 every Medical evening. Branch Alternate take 1mg x4 days, then 2mg x 3 days warfarin 2021-04 Yes [id number] 1mg Take 1 [facility] mg tablet 0-17 tablet by [facility] o f 00:00: mouth [place] 00 every Medical evening. Branch Alternate take 1mg x4 days, then 2mg x 3 days warfarin 2021-04- No [id number] 1mg Take 1 [facility] mg tablet 0-17 [...] :00 the Medical morning. Branch warfarin Yes [id number] 1mg Take 1 [facility] mg tablet 8-24 tablet by [facility] o f 00:00: mouth [place] 00 every Medical evening. Branch Alternate take 1mg x2days, then 2mg x 1 day warfarin Yes [id number] 1mg Take 1 [facility] mg tablet 8-24 tablet by [facility] o f 00:00: mouth [place] 00 every Medical evening. Branch Alternate take 1mg x2days, then 2mg x 1 day warfarin Yes [id number] 1mg Take 1 [facility] mg tablet 8-24 tablet by [facility] o f 00:00: mouth [place] 00 every Medical evening. Branch Alternate take 1mg x2days, then 2mg x 1 day warfarin 1 0 Yes [id number] 1mg Take 1 [facility] mg tablet 8-24 tablet by [facility] o f 00:00: mouth [place] 00 every Medical evening. Branch Alternate take 1mg x2days, then 2mg x 1 day warfarin 1 Yes [id number] 1mg Take 1 [facility] mg tablet 8-24 tablet by [facility] o f 00:00: mouth [place] 00 every Medical evening. Branch Alternate take 1mg x2days, then 2mg x 1 day warfarin 1 Yes [id number] 1mg Take 1 [facility] mg tablet 8-24 tablet by [facility] o f 00:00: mouth [place] 00 every Medical evening. Branch Alternate take 1mg x2days, then 2mg x 1 day warfarin 1 Yes [id number] 1mg Take 1 [facility] mg tablet 8-24 tablet by [facility] o f 00:00: mouth [place] 00 every Medical evening. Branch Alternate take 1mg x2days, then 2mg x 1 day warfarin Yes [id number] 1mg Take 1 [facility] mg tablet 8-24 tablet by [facility] o f 00:00: mouth [place] 00 every Medical evening. Branch Alternate take 1mg x2days, then 2mg x 1 day warfarin 1 Yes [id number] 1mg Take 1 [facility] mg tablet 8-24 tablet by [facility] o f 00:00: mouth [place] 00 every Medical evening. Branch Alternate take 1mg x2days, then 2mg x 1 day warfarin Yes [id number] 1mg Take 1 [facility] mg tablet 8-24 tablet by [facility] o f 00:00: mouth [place] 00 every Medical evening. Branch Alternate take 1mg x2days, then 2mg x 1 day warfarin Yes [id number] 1mg Take 1 [facility] mg tablet 8-24 tablet by [facility] o f 00:00: mouth [place] 00 every Medical evening. Branch Alternate take 1mg x2days, then 2mg x 1 day warfarin Yes [id number] 1mg Take 1 [facility] mg tablet 8-24 tablet by [facility] o f 00:00: mouth [place] 00 every Medical evening. Branch Alternate take 1mg x2days, then 2mg x 1 day warfarin Yes [id number] 1mg Take 1 [facility] mg tablet 8-24 tablet by [facility] o f 00:00: mouth [place] 00 every Medical evening. Branch Alternate take 1mg x2days, then 2mg x 1 day warfarin 1 2021- No [id number] 1mg Take 1 [facility] mg tablet 8-24 10-17 tablet by [facility] of 00:00: 00:00 mouth [place] 00 :00 every Medical evening. Branch Alternate take 1mg x2days, then 2mg x 1 day warfarin 1 2021- No [id number] 2mg Take 2 [facility] mg tablet 8-23 08-24 tablets by [facility] 00:00: 00:00 mouth [place] 00 :00 every Medical evening. Branch dofetilide 2021- No [id number] 125ug Take 1 [facility] 125 mcg 8-19 08-27 capsule by [facility] o f capsule 00:00: 04:59 mouth [place] 00 :00 every 12 Medical (twelve) Branch hours for 7 days. dofetilide 2- No [id number] 125ug Take 1 [facility] 125 mcg 8-19 08-27 capsule by [facility] o f capsule 00:00: 04:59 mouth [place] 00 :00 every 12 Medical (twelve) Branch hours for 7 days. dofetilide 2021- No [id number] 125ug Take 1 [facility] 125 mcg 8-17 11-16 capsule by [facility] f capsule 00:00: 05:59 mouth [place] 00 :00 every 12 Medical (twelve) Branch hours for 90 days. dofetilide 2021- No [id number] 125ug Take 1 [facility] 125 mcg 8-17 11-16 capsule by [facility] f capsule 00:00: 05:59 mouth [place] 00 :00 every 12 Medical (twelve) Branch hours for 90 days. dofetilide 2021- No [id number] 125ug Take 1 [facility] 125 mcg 8-17 11-16 capsule by [facility] f capsule 00:00: 05:59 mouth [place] 00 :00 every 12 Medical (twelve) Branch hours for 90 days. dofetilide 2021- No [id number] 125ug Take 1 [facility] 125 mcg 8-17 11-16 capsule by [facility] f capsule 00:00: 05:59 mouth [place] 00 :00 every 12 Medical (twelve) Branch hours for 90 days. dofetilide 2021- No [id number] 125ug Take 1 [facility] 125 mcg 8-17 11-16 capsule by [facility] f capsule 00:00: 05:59 mouth [place] 00 :00 every 12 Medical (twelve) Branch hours for 90 days. dofetilide 2- No [id number] 125ug Take 1 [facility] 125 mcg 8-17 11-16 capsule by [facility] f capsule 00:00: 05:59 mouth [place] 00 :00 every 12 Medical (twelve) Branch hours for 90 days. dofetilide 2- No [id number] 125ug Take 1 [facility] 125 mcg 8-17 11-16 capsule by [facility] f capsule 00:00: 05:59 mouth [place] 00 :00 every 12 Medical (twelve) Branch hours for 90 days. dofetilide 2021- No [id number] 125ug Take 1 [facility] 125 mcg 8-17 11-16 capsule by [facility] o f capsule 00:00: 05:59 mouth [place] 00 :00 every 12 Medical (twelve) Branch hours for 90 days. dofetilide 2021- No [id number] 125ug Take 1 [facility] 125 mcg 8-17 11-16 capsule by [facility] o f capsule 00:00: 05:59 mouth [place] 00 :00 every 12 Medical (twelve) Branch hours for 90 days. dofetilide 2021- No [id number] 125ug Take 1 [facility] 125 mcg 8-17 11-16 capsule by [facility] o f capsule 00:00: 05:59 mouth [place] 00 :00 every 12 Medical (twelve) Branch hours for 90 days. dofetilide 2021- No [id number] 125ug Take 1 [facility] 125 mcg 8-17 11-16 capsule by [facility] o f capsule 00:00: 05:59 mouth [place] 00 :00 every 12 Medical (twelve) Branch hours for 90 days. dofetilide 2021- No [id number] 125ug Take 1 [facility] 125 mcg 8-17 11-16 capsule by [facility] o f capsule 00:00: 05:59 mouth [place] 00 :00 every 12 Medical (twelve) Branch hours for 90 days. dofetilide 2021- No [id number] 125ug Take 1 [facility] 125 mcg 8-17 11-16 capsule by [facility] o f capsule 00:00: 05:59 mouth [place] 00 :00 every 12 Medical (twelve) Branch hours for 90 days. dofetilide 2021- No [id number] 125ug Take 1 [facility] 125 mcg 8-17 11-16 capsule by [facility] o f capsule 00:00: 05:59 mouth [place] 00 :00 every 12 Medical (twelve) Branch hours for 90 days. dofetilide 2021- No [id number] 125ug Take 1 [facility] 125 mcg 8-17 11-16 capsule by [facility] o f capsule 00:00: 05:59 mouth [place] 00 :00 every 12 Medical (twelve) Branch hours for 90 days. dofetilide 2021-2- No [id number] 125ug Take 1 [facility] 125 mcg 8-17 11-16 capsule by [facility] o f capsule 00:00: 05:59 mouth [place] 00 :00 every 12 Medical (twelve) Branch hours for 90 days. dofetilide 2021-2- No [id number] 125ug Take 1 [facility] 125 mcg 8-17 11-16 capsule by [facility] o f capsule 00:00: 05:59 mouth [place] 00 :00 every 12 Medical (twelve) Branch hours for 90 days. dofetilide 2021-2- No [id number] 125ug Take 1 [facility] 125 mcg 8-17 11-16 capsule by [facility] o f capsule 00:00: 05:59 mouth [place] 00 :00 every 12 Medical (twelve) Branch hours for 90 days. dofetilide 2021-2- No [id number] 125ug Take 1 [facility] 125 mcg 8-17 11-16 capsule by [facility] o f capsule 00:00: 05:59 mouth [place] 00 :00 every 12 Medical (twelve) Branch hours for 90 days. dofetilide 2021-2- No [id number] 125ug Take 1 [facility] 125 mcg 8-17 11-16 capsule by [facility] o f capsule 00:00: 05:59 mouth [place] 00 :00 every 12 Medical (twelve) Branch hours for 90 days. atorvastati 0 Yes 80mg Take 1 [facility] ers n 80 mg 7-12 tablet by [facility] of tablet 00:00: mouth at [place] [address] bedtime. Medical Branch atorvastati 2021-0 Yes 80mg Take 1 [facility] ers n 80 mg 7-12 tablet by [facility] of tablet 00:00: mouth at [place] [address] bedtime. Medical Branch atorvastati 2021-0 Yes 80mg Take 1 [facility] ers n 80 mg 7-12 tablet by [facility] of tablet 00:00: mouth at [place] [address] bedtime. Medical Branch atorvastati 2021-0 Yes 80mg Take 1 [facility] ers n 80 mg 7-12 tablet by [facility] of tablet 00:00: mouth at [place] [address] bedtime. Medical Branch atorvastati 2021-0 Yes 80mg Take 1 [facility] ers n 80 mg 7-12 tablet by [facility] of tablet 00:00: mouth at [place] [address] bedtime. Medical Branch atorvastati 2-0 Yes 80mg Take 1 [facility] ers n 80 mg 7-12 tablet by [facility] of tablet 00:00: mouth at [place] [address] bedtime. Medical Branch atorvastati 2-0 Yes 80mg Take 1 [facility] ers n 80 mg 7-12 tablet by [facility] of tablet 00:00: mouth at [place] [address] bedtime. Medical Branch atorvastati 2-0 Yes 80mg Take 1 [facility] ers n 80 mg 7-12 tablet by [facility] of tablet 00:00: mouth at [place] [address] bedtime. Medical Branch atorvastati 2-0 Yes 80mg Take 1 [facility] ers n 80 mg 7-12 tablet by [facility] of tablet 00:00: mouth at [place] [address] bedtime. Medical Branch atorvastati 2-0 Yes 80mg Take 1 [facility] ers n 80 mg 7-12 tablet by [facility] of tablet 00:00: mouth at [place] [address] bedtime. Medical Branch atorvastati 2-0 Yes 80mg Take 1 [facility] ers n 80 mg 7-12 tablet by [facility] of tablet 00:00: mouth at [place] [address] bedtime. Medical Branch atorvastati 2-0 Yes 80mg Take 1 [facility] ers n 80 mg 7-12 tablet by [facility] of tablet 00:00: mouth at [place] [address] bedtime. Medical Branch atorvastati 2-0 Yes 80mg Take 1 [facility] ers n 80 mg 7-12 tablet by [facility] of tablet 00:00: mouth at [place] [address] bedtime. Medical Branch atorvastati 2-0 Yes 80mg Take 1 [facility] ers n 80 mg 7-12 tablet by [facility] of tablet 00:00: mouth at [place] [address] bedtime. Medical Branch atorvastati 2-0 Yes 80mg Take 1 [facility] n 80 mg 7-12 tablet by [facility] of tablet 00:00: mouth at [place] [address] bedtime. Medical Branch atorvastati 2-0 Yes 80mg Take 1 [facility] ers n 80 mg 7-12 tablet by [facility] of tablet 00:00: mouth at [place] [address] bedtime. Medical Branch atorvastati 2022-0 Yes 80mg Take 1 [facility] ers n 80 mg 7-12 tablet by [facility] of tablet 00:00: mouth at [place] [address] bedtime. Medical Branch atorvastati 2-0 Yes 80mg Take 1 [facility] ers n 80 mg 7-12 tablet by [facility] of tablet 00:00: mouth at [place] [address] bedtime. Medical Branch atorvastati 2-0 Yes 80mg [...] by [facility] of tablet 00:00: mouth at [place] [address] bedtime. Medical Branch atorvastati 2-0 Yes 80mg Take 1 [facility] ers n 80 mg 7-12 tablet by [facility] of tablet 00:00: mouth at [place] [address] bedtime. Medical Branch atorvastati 2-0 Yes 80mg Take 1 [facility] ers n 80 mg 7-12 tablet by [facility] of tablet 00:00: mouth at [place] [address] bedtime. Medical Branch atorvastati 2-0 Yes 80mg Take 1 [facility] n 80 mg 7-12 tablet by [facility] of tablet 00:00: mouth at [place] [address] bedtime. Medical Branch atorvastati 2-0 Yes 80mg Take 1 [facility] n 80 mg 7-12 tablet by [facility] of tablet 00:00: mouth at [place] [address] bedtime. Medical Branch atorvastati 2-0 Yes 80mg Take 1 [facility] n 80 mg 7-12 tablet by [facility] of tablet 00:00: mouth at [place] [address] bedtime. Medical Branch atorvastati 2-0 Yes 80mg Take 1 [facility] n 80 mg 7-12 tablet by [facility] of tablet 00:00: mouth at [place] [address] bedtime. Medical Branch atorvastati 2-0 Yes 80mg Take 1 [facility] n 80 mg 7-12 tablet by [facility] of tablet 00:00: mouth at [place] [address] bedtime. Medical Branch atorvastati 2-0 Yes 80mg Take 1 [facility] ers n 80 mg 7-12 tablet by [facility] of tablet 00:00: mouth at [place] [address] bedtime. Medical Branch atorvastati 2-0 Yes 80mg Take 1 [facility] n 80 mg 7-12 tablet by [facility] of tablet 00:00: mouth at [place] [address] bedtime. Medical Branch atorvastati 2-0 Yes 80mg Take 1 [facility] n 80 mg 7-12 tablet by [facility] of tablet 00:00: mouth at [place] [address] bedtime. Medical Branch atorvastati 2-0 Yes 80mg Take 1 [facility] n 80 mg 7-12 tablet by [facility] of tablet 00:00: mouth at [place] [address] bedtime. Medical Branch atorvastati 2-0 Yes 80mg Take 1 [facility] n 80 mg 7-12 tablet by [facility] of tablet 00:00: mouth at [place] [address] bedtime. Medical Branch atorvastati 2-0 Yes 80mg Take 1 [facility] n 80 mg 7-12 tablet by [facility] of tablet 00:00: mouth at [place] [address] bedtime. Medical Branch atorvastati 2-0 Yes 80mg Take 1 [facility] n 80 mg 7-12 tablet by [facility] of tablet 00:00: mouth at [place] [address] bedtime. Medical Branch atorvastati 2-0 Yes 80mg Take 1 [facility] n 80 mg 7-12 tablet by [facility] of tablet 00:00: mouth at [place] [address] bedtime. Medical Branch atorvastati 2-0 Yes 80mg Take 1 [facility] n 80 mg 7-12 tablet by [facility] of tablet 00:00: mouth at [place] [address] bedtime. Medical Branch atorvastati 2-0 Yes 80mg Take 1 [facility] n 80 mg 7-12 tablet by [facility] of tablet 00:00: mouth at [place] [address] bedtime. [facility] Branch atorvastati 2-0 Yes 80mg Take 1 [facility] n 80 mg 7-12 tablet by [facility] of tablet 00:00: mouth at [place] [address] bedtime. [facility] Branch atorvastati 2-0 Yes 80mg Take 1 [facility] n 80 mg 7-12 tablet by [facility] of tablet 00:00: mouth at [place] [address] bedtime. Medical Branch atorvastati 2022-0 Yes 80mg Take 1 [facility] n 80 mg 7-12 tablet by [facility] of tablet 00:00: mouth at [place] [address] bedtime. Medical Branch atorvastati 2-0 Yes 80mg Take 1 [facility] n 80 mg 7-12 tablet by [facility] of tablet 00:00: mouth at [place] [address] bedtime. Medical Branch atorvastati 2-0 Yes 80mg [...] by [facility] tablet 00:00: mouth at [place] [address] bedtime. [facility] Branch atorvastati 2-0 Yes 80mg Take 1 [facility] n 80 mg 7-12 tablet by [facility] of tablet 00:00: mouth at [place] [address] bedtime. Medical Branch atorvastati 2-0 Yes 80mg Take 1 [facility] n 80 mg 7-12 tablet by [facility] of tablet 00:00: mouth at [place] [address] bedtime. [facility] Branch atorvastati 2-0 Yes 80mg Take 1 [facility] n 80 mg 7-12 tablet by [facility] of tablet 00:00: mouth at [place] [address] bedtime. [facility] Branch atorvastati 2-0 Yes 80mg Take 1 [facility] n 80 mg 7-12 tablet by [facility] of tablet 00:00: mouth at [place] [address] bedtime. [facility] Branch atorvastati 2-0 Yes 80mg Take 1 [facility] n 80 mg 7-12 tablet by [facility] of tablet 00:00: mouth at [place] [address] bedtime. [facility] Branch atorvastati 2-0 Yes 80mg Take 1 [facility] n 80 mg 7-12 tablet by [facility] of tablet 00:00: mouth at [place] [address] bedtime. [facility] Branch atorvastati 2-0 Yes 80mg Take 1 [facility] n 80 mg 7-12 tablet by [facility] of tablet 00:00: mouth at [place] [address] bedtime. [facility] Branch atorvastati 2-0 Yes 80mg Take 1 [facility] n 80 mg 7-12 tablet by [facility] of tablet 00:00: mouth at [place] [address] bedtime. [facility] Branch atorvastati 2-0 Yes 80mg Take 1 [facility] n 80 mg 7-12 tablet by [facility] of tablet 00:00: mouth at [place] [address] bedtime. [facility] Branch atorvastati 2-0 Yes 80mg Take 1 [facility] n 80 mg 7-12 tablet by [facility] of tablet 00:00: mouth at [place] [address] bedtime. [facility] Branch atorvastati 2-0 Yes 80mg Take 1 [facility] n 80 mg 7-12 tablet by [facility] of tablet 00:00: mouth at [place] [address] bedtime. [facility] Branch atorvastati 2-0 Yes 80mg Take 1 [facility] n 80 mg 7-12 tablet by [facility] of tablet 00:00: mouth at [place] [address] bedtime. [facility] Branch atorvastati 2-0 Yes 80mg Take 1 [facility] n 80 mg 7-12 tablet by [facility] of tablet 00:00: mouth at [place] [address] bedtime. [facility] Branch atorvastati 2-0 Yes 80mg Take 1 [facility] n 80 mg 7-12 tablet by [facility] of tablet 00:00: mouth at [place] [address] bedtime. [facility] Branch atorvastati 2-0 Yes 80mg Take 1 [facility] n 80 mg 7-12 tablet by [facility] of tablet 00:00: mouth at [place] [address] bedtime. [facility] Branch atorvastati 2-0 Yes 80mg Take 1 [facility] n 80 mg 7-12 tablet by [facility] of tablet 00:00: mouth at [place] [address] bedtime. [facility] Branch atorvastati 2-0 Yes 80mg Take 1 [facility] n 80 mg 7-12 tablet by [facility] of tablet 00:00: mouth at [place] [address] bedtime. [facility] Branch atorvastati 2-0 Yes 80mg Take 1 [facility] n 80 mg 7-12 tablet by [facility] of tablet 00:00: mouth at [place] [address] bedtime. [facility] Branch atorvastati 2-0 Yes 80mg Take 1 [facility] n 80 mg 7-12 tablet by [facility] of tablet 00:00: mouth at [place] [address] bedtime. [facility] Branch atorvastati 2022-0 Yes 80mg Take 1 [facility] n 80 mg 7-12 tablet by [facility] of tablet 00:00: mouth at [place] [address] bedtime. [facility] Branch atorvastati 2-0 Yes 80mg Take 1 [facility] n 80 mg 7-12 tablet by [facility] of tablet 00:00: mouth at [place] [address] bedtime. [facility] Branch atorvastati 2-0 Yes 80mg [...] by [facility] tablet 00:00: mouth at [place] [address] bedtime. [facility] Branch atorvastati 2-0 Yes 80mg Take 1 [facility] ers n 80 mg 7-12 tablet by [facility] of tablet 00:00: mouth at [place] [address] bedtime. [facility] Branch atorvastati 2-0 Yes 80mg Take 1 [facility] n 80 mg 7-12 tablet by [facility] of tablet 00:00: mouth at [place] [address] bedtime. [facility] Branch atorvastati 2-0 Yes 80mg Take 1 [facility] n 80 mg 7-12 tablet by [facility] of tablet 00:00: mouth at [place] [address] bedtime. [facility] Branch atorvastati 2-0 Yes 80mg Take 1 [facility] n 80 mg 7-12 tablet by [facility] of tablet 00:00: mouth at [place] [address] bedtime. [facility] Branch atorvastati 2-0 Yes 80mg Take 1 [facility] n 80 mg 7-12 tablet by [facility] of tablet 00:00: mouth at [place] [address] bedtime. [facility] Branch atorvastati 2-0 Yes 80mg Take 1 [facility] n 80 mg 7-12 tablet by [facility] of tablet 00:00: mouth at [place] [address] bedtime. [facility] Branch atorvastati 2-0 Yes 80mg Take 1 [facility] n 80 mg 7-12 tablet by [facility] of tablet 00:00: mouth at [place] [address] bedtime. [facility] Branch atorvastati 2-0 Yes 80mg Take 1 [facility] n 80 mg 7-12 tablet by [facility] of tablet 00:00: mouth at [place] [address] bedtime. [facility] Branch atorvastati 2021-0 Yes 80mg Take 1 [facility] n 80 mg 7-12 tablet by [facility] of tablet 00:00: mouth at [place] [address] bedtime. [facility] Branch atorvastati 2-0 Yes 80mg Take 1 [facility] n 80 mg 7-12 tablet by [facility] of tablet 00:00: mouth at [place] [address] bedtime. [facility] Branch atorvastati 2021-0 Yes 80mg Take 1 [facility] n 80 mg 7-12 tablet by [facility] of tablet 00:00: mouth at [place] [address] bedtime. [facility] Branch atorvastati 2021-0 Yes 80mg Take 1 [facility] ers n 80 mg 7-12 tablet by [facility] of tablet 00:00: mouth at [place] [address] bedtime. [facility] Branch atorvastati 2021-0 2023- No 80mg Take 1 [facility] vers n 80 mg 7-12 07-12 tablet by [facility] tablet 00:00: 00:00 mouth at [place] 00 :00 bedtime. [facility] Branch atorvastati 2021-0 3- No 80mg Take 1 [facility] 80 mg 7-12 07-12 tablet by [facility] of tablet 00:00: 00:00 mouth at [place] 00 :00 bedtime. [facility] ezetimibe 2021-0 [...] [place] 00 daily. [facility] Branch ezetimibe 2021-0 2021- No 10mg Take 1 [facility] (ZETIA) 10 5-20 09-02 tablet by [facility] mg tablet 00:00: 00:00 mouth [place] 00 :00 daily. [facility] Branch furosemide 2021-0 Yes [id number] 40mg Take 2 [facility] 20 mg 2-16 02 tablets by [facility] tablet 00:00: mouth [place] 00 daily. [facility] furosemide 2021-0 Yes [id number] 40mg Take 2 [facility] 20 mg 2-16 02 tablets by [facility] tablet 00:00: mouth [place] 00 daily. [facility] furosemide 2021-0 Yes [id number] 40mg Take 2 [facility] 20 mg 2-16 02 tablets by [facility] tablet 00:00: mouth [place] 00 daily. [facility] furosemide 2021-0 Yes [id number] 40mg Take 2 [facility] 20 mg 2-16 02 tablets by [facility] tablet 00:00: mouth [place] 00 daily. [facility] furosemide 2021-0 Yes [id number] 40mg Take 2 [facility] 20 mg 2-16 02 tablets by [facility] tablet 00:00: mouth [place] 00 daily. [facility] furosemide 2021-0 Yes [id number] 40mg Take 2 [facility] 20 mg 2-16 02 tablets by [facility] tablet 00:00: mouth [place] 00 daily. [facility] furosemide 2021-0 Yes [id number] 40mg Take 2 [facility] 20 mg 2-16 02 tablets by [facility] tablet 00:00: mouth [place] 00 daily. [facility] furosemide 2021-0 Yes [id number] 40mg Take 2 [facility] 20 mg 2-16 02 tablets by [facility] tablet 00:00: mouth [place] 00 daily. [facility] furosemide 2021-0 Yes [id number] 40mg Take 2 [facility] 20 mg 2-16 02 tablets by [facility] tablet 00:00: mouth [place] 00 daily. [facility] furosemide 2021-0 Yes [id number] 40mg Take 2 [facility] 20 mg 2-16 02 tablets by [facility] tablet 00:00: mouth [place] 00 daily. [facility] furosemide 2021-0 Yes [id number] 40mg Take 2 [facility] 20 mg 2-16 02 tablets by [facility] tablet 00:00: mouth [place] 00 daily. [facility] furosemide 2021-0 Yes [id number] 40mg Take 2 [facility] 20 mg 2-16 02 tablets by [facility] tablet 00:00: mouth [place] 00 daily. [facility] furosemide 2021-0 Yes [id number] 40mg Take 2 [facility] 20 mg 2-16 02 tablets by [facility] tablet 00:00: mouth [place] 00 daily. [facility] furosemide 2021-0 Yes [id number] 40mg Take 2 [facility] 20 mg 2-16 02 tablets by [facility] tablet 00:00: mouth [place] 00 daily. [facility] furosemide 0 Yes [id number] 40mg Take 2 [facility] 20 mg 2-16 02 tablets by [facility] tablet 00:00: mouth [place] 00 daily. [facility] furosemide 0 Yes [id number] 40mg Take 2 [facility] 20 mg 2-16 02 tablets by [facility] tablet 00:00: mouth [place] 00 daily. [facility] furosemide 2021-0 Yes [id number] 40mg Take 2 [facility] 20 mg 2-16 02 tablets by [facility] tablet 00:00: mouth [place] 00 daily. [facility] furosemide 0 Yes [id number] 40mg Take 2 [facility] 20 [facility]-16 02 tablets by [facility] tablet 00:00: mouth [place] 00 daily. [facility] furosemide 2021-0 Yes [id number] 40mg Take 2 [facility] 20 mg 2-16 02 tablets by [facility] tablet 00:00: mouth [place] 00 daily. [facility] furosemide 2021-0 Yes [id number] 40mg Take 2 [facility] 20 mg 2-16 02 tablets by [facility] tablet 00:00: mouth [place] 00 daily. [facility] furosemide 2021-0 Yes [id number] 40mg Take 2 [facility] 20 mg 2-16 02 tablets by [facility] tablet 00:00: mouth [place] 00 daily. [facility] furosemide 2021-0 Yes [id number] 40mg Take 2 [facility] 20 mg 2-16 02 tablets by [facility] tablet 00:00: mouth [place] 00 daily. [facility] furosemide 2021-0 Yes [id number] 40mg Take 2 [facility] 20 mg 2-16 02 tablets by [facility] tablet 00:00: mouth [place] 00 daily. [facility] furosemide 2021-0 Yes [id number] 40mg Take 2 [facility] 20 mg 2-16 02 tablets by [facility] of tablet 00:00: mouth [place] 00 daily. [facility] furosemide 2021-0 Yes [id number] 40mg Take 2 [facility] 20 mg 2-16 02 tablets by [facility] of tablet 00:00: mouth [place] 00 daily. [facility] furosemide 2021-0 Yes [id number] 40mg Take 2 [facility] 20 mg 2-16 02 tablets by [facility] of tablet 00:00: mouth [place] 00 daily. [facility] furosemide 2021-0 Yes [id number] 40mg Take 2 [facility] 20 mg 2-16 02 tablets by [facility] of tablet 00:00: mouth [place] 00 daily. [facility] furosemide 2021-0 Yes [id number] 40mg Take 2 [facility] 20 mg 2-16 02 tablets by [facility] of tablet 00:00: mouth [place] 00 daily. [facility] furosemide 0 Yes [id number] 40mg Take 2 [facility] 20 mg 2-16 02 tablets by [facility] of tablet 00:00: mouth [place] 00 daily. [facility] furosemide 2021-0 Yes [id number] 40mg Take 2 [facility] 20 mg 2-16 02 tablets by [facility] of tablet 00:00: mouth [place] 00 daily. [facility] furosemide 0 Yes [id number] 40mg Take 2 [facility] 20 mg 2-16 02 tablets by [facility] of tablet 00:00: mouth [place] 00 daily. [facility] furosemide 2021-0 Yes [id number] 40mg Take 2 [facility] 20 mg 2-16 02 tablets by [facility] of tablet 00:00: mouth [place] 00 daily. [facility] furosemide 2021-0 Yes [id number] 40mg Take 2 [facility] 20 mg 2-16 02 tablets by [facility] of tablet 00:00: mouth [place] 00 daily. [facility] furosemide 2021-0 Yes [id number] 40mg Take 2 [facility] 20 mg 2-16 02 tablets by [facility] of tablet 00:00: mouth [place] 00 daily. [facility] furosemide 2021-0 Yes [id number] 40mg Take 2 [facility] 20 mg 2-16 02 tablets by [facility] of tablet 00:00: mouth [place] 00 daily. [facility] furosemide 2021-0 Yes [id number] 40mg Take 2 [facility] 20 mg 2-16 02 tablets by [facility] of tablet 00:00: mouth [place] 00 daily. [facility] furosemide 2021-0 Yes [id number] 40mg Take 2 [facility] 20 mg 2-16 02 tablets by [facility] of tablet 00:00: mouth [place] 00 daily. [facility] furosemide Yes [id number] 40mg Take 2 [facility] 20 mg 2-16 02 tablets by [facility] of tablet 00:00: mouth [place] 00 daily. [facility] furosemide Yes [id number] 40mg Take 2 [facility] 20 mg 2-16 02 tablets by [facility] of tablet 00:00: mouth [place] 00 daily. [facility] furosemide Yes [id number] 40mg Take 2 [facility] 20 mg 2-16 02 tablets by [facility] of tablet 00:00: mouth [place] 00 daily. [facility] furosemide Yes [id number] 40mg Take 2 [facility] 20 mg 2-16 02 tablets by [facility] of tablet 00:00: mouth [place] 00 daily. [facility] furosemide Yes [id number] 40mg Take 2 [facility] 20 mg 2-16 02 tablets by [facility] of tablet 00:00: mouth [place] 00 daily. [facility] furosemide 2022- No [id number] 40mg Take 2 [facility] 20 mg 2-16 02-27 02 tablets by [facility] of tablet 00:00: 00:00 mouth [place] 00 :00 daily. [facility] furosemide 2022- No [id number] 40mg Take 2 [facility] 20 mg 2-16 02-27 02 tablets by it[facility] of tablet 00:00: 00:00 mouth [place] 00 :00 daily. [facility] furosemide 2022- No [id number] 40mg Take 2 [facility] 20 mg 2-16 02-27 02 tablets by [facility] of tablet 00:00: 00:00 mouth [place] 00 :00 daily. [facility] furosemide 2022- No [id number] 40mg Take 2 [facility] 20 mg 2-16 02-27 02 tablets by [facility] of tablet 00:00: 00:00 mouth [place] 00 :00 daily. [facility] furosemide 2022- No [id number] 40mg Take 2 [facility] 20 mg 2-16 02-27 02 tablets by [facility] of tablet 00:00: 00:00 mouth [place] 00 :00 daily. [facility] metoprolol 2020-04 Yes [id number] 25mg Take 1 [facility] tartrate 25 2-15 tablet by [facility] of mg tablet 00:00: mouth 2 [place] 00 (two) Medical times Branch daily. metoprolol 2020-04 Yes [id number] 25mg Take 1 [facility] tartrate 25 2-15 tablet by [facility] of mg tablet 00:00: mouth (two) Medical times Branch daily. metoprolol 2020-04 Yes [id number] 25mg Take 1 [facility] tartrate 25 2-15 tablet by [facility] of mg tablet 00:00: mouth (two) Medical times Branch daily. metoprolol 2020-04 Yes [id number] 25mg Take 1 [facility] tartrate 25 2-15 tablet by [facility] of mg tablet 00:00: mouth (two) Medical times Branch daily. metoprolol 2020-04 Yes [id number] 25mg Take 1 [facility] tartrate 25 2-15 tablet by [facility] of mg tablet 00:00: mouth (two) Medical times Branch daily. metoprolol 2020-04 Yes [id number] 25mg Take 1 [facility] tartrate 25 2-15 tablet by [facility] of mg tablet 00:00: mouth (two) Medical times Branch daily. metoprolol 2020-04 Yes [id number] 25mg Take 1 [facility] tartrate 25 2-15 tablet by [facility] of mg tablet 00:00: mouth (two) Medical times Branch daily. metoprolol 2020-04 Yes [id number] 25mg Take 1 [facility] tartrate 25 2-15 tablet by [facility] of mg tablet 00:00: mouth (two) Medical times Branch daily. metoprolol 2020-04 Yes [id number] 25mg Take 1 [facility] tartrate 25 2-15 tablet by [facility] of mg tablet 00:00: mouth (two) Medical times Branch daily. metoprolol 2020-04 Yes [id number] 25mg Take 1 [facility] tartrate 25 2-15 tablet by [facility] of mg tablet 00:00: mouth (two) Medical times Branch daily. metoprolol 2020-04 Yes [id number] 25mg Take 1 [facility] tartrate 25 2-15 tablet by [facility] of mg tablet 00:00: mouth (two) Medical times Branch daily. metoprolol 2020-04 Yes [id number] 25mg Take 1 [facility] tartrate 25 2-15 tablet by [facility] of mg tablet 00:00: mouth (two) Medical times Branch daily. metoprolol 2020-04 Yes [id number] 25mg Take 1 [facility] tartrate 25 2-15 tablet by [facility] of mg tablet 00:00: mouth (two) Medical times Branch daily. metoprolol 2020-04 Yes [id number] 25mg Take 1 [facility] tartrate 25 2-15 tablet by [facility] of mg tablet 00:00: mouth (two) Medical times Branch daily. metoprolol 2020-04 Yes [id number] 25mg Take 1 [facility] tartrate 25 2-15 tablet by [facility] of mg tablet 00:00: mouth (two) Medical times Branch daily. metoprolol 2020-04 Yes [id number] 25mg Take 1 [facility] tartrate 25 2-15 tablet by [facility] of mg tablet 00:00: mouth (two) Medical times Branch daily. metoprolol 2020-04 Yes [id number] 25mg Take 1 [facility] tartrate 25 2-15 tablet by [facility] of mg tablet 00:00: mouth (two) Medical times Branch daily. metoprolol 2020-04 Yes [id number] 25mg Take 1 [facility] tartrate 25 2-15 tablet by [facility] of mg tablet 00:00: mouth (two) Medical times Branch daily. metoprolol 2020-04 Yes [id number] 25mg Take 1 [facility] tartrate 25 2-15 tablet by [facility] of mg tablet 00:00: mouth (two) Medical times Branch daily. metoprolol 2020-04 Yes [id number] 25mg Take 1 [facility] tartrate 25 2-15 tablet by [facility]y of mg tablet 00:00: mouth (two) Medical times Branch daily. metoprolol 2020-04 Yes [id number] 25mg Take 1 [facility] tartrate 25 2-15 tablet by [facility] of mg tablet 00:00: mouth (two) Medical times Branch daily. metoprolol 2020-04 Yes [id number] 25mg Take 1 [facility] tartrate 25 2-15 tablet by [facility] of mg tablet 00:00: mouth (two) Medical times Branch daily. metoprolol 2020-04 Yes [id number] 25mg Take 1 [facility] tartrate 25 2-15 tablet by [facility] of mg tablet 00:00: mouth (two) Medical times Branch daily. metoprolol 2020-04 Yes [id number] 25mg Take 1 [facility] tartrate 25 2-15 tablet by [facility] of mg tablet 00:00: mouth 2 (two) Medical times Branch daily. metoprolol 2020-04 Yes [id number] 25mg Take 1 [facility] tartrate 25 2-15 tablet by [facility] of mg tablet 00:00: mouth (two) Medical times Branch daily. metoprolol 2020-04 Yes [id number] 25mg Take 1 [facility] tartrate 25 2-15 tablet by [facility] of mg tablet 00:00: mouth (two) Medical times Branch daily. metoprolol 2020-04 Yes [id number] 25mg Take 1 [facility] tartrate 25 2-15 tablet by [facility] of mg tablet 00:00: mouth (two) Medical times Branch daily. metoprolol 2020-04 Yes [id number] 25mg Take 1 [facility] tartrate 25 2-15 tablet by [facility] of mg tablet 00:00: mouth (two) Medical times Branch daily. metoprolol 2020-04 Yes [id number] 25mg Take 1 [facility] tartrate 25 2-15 tablet by [facility] of mg tablet 00:00: mouth (two) Medical times Branch daily. metoprolol 2020-04- No [id number] 25mg Take 1 [facility] tartrate 25 2-15 12-19 tablet by it y [facility] mg tablet 00:00: 00:[place] (two[place] Medical times [facility] daily. polyethylen 2020-04 Yes [id number] 17g Take 1 [facility] e glycol 0-29 Packet by ity of 3350 17 00:00: mouth [place] gram powder 00 daily. Medica l [facility] polyethylen 2020-04 Yes [id number] 17g Take 1 [facility] e glycol 0-29 Packet by ity of 3350 17 00:00: mouth [place] gram powder 00 daily. Medica l [facility] polyethylen 2020-04 Yes [id number] 17g Take 1 [facility] e glycol 0-29 Packet by ity of 3350 17 00:00: mouth [place] gram powder 00 daily. Medica l [facility] polyethylen 2020-04 Yes [id number] 17g Take 1 [facility] e glycol 0-29 Packet by ity of 3350 17 00:00: mouth [place] gram powder 00 daily. Medica l [facility] polyethylen 2020-04 Yes [id number] 17g Take 1 [facility] e glycol 0-29 Packet by ity of 3350 17 00:00: mouth [place] gram powder 00 daily. Medica l [facility] polyethylen 2020-04 Yes [id number] 17g Take 1 [facility] e glycol 0-29 Packet by ity of 3350 17 00:00: mouth [place] gram powder 00 daily. Medica l [facility] polyethylen 2020-04 Yes [id number] 17g Take 1 [facility] e glycol 0-29 Packet by ity of 3350 17 00:00: mouth [place] gram powder 00 daily. Medica l [facility] polyethylen 2020-04 Yes [id number] 17g Take 1 [facility] e glycol 0-29 Packet by ity of 3350 17 00:00: mouth [place] gram powder 00 daily. Medica [facility] polyethylen 2020-04 Yes [id number] 17g Take 1 [facility] e glycol 0-29 Packet by ity of 3350 17 00:00: mouth [place] gram powder 00 daily. Medica l [facility] polyethylen 2020-04 Yes [id number] 17g Take 1 [facility] e glycol 0-29 Packet by ity of 3350 17 00:00: mouth [place] gram powder 00 daily. Medica l [facility] polyethylen 2020-04 Yes [id number] 17g Take 1 [facility] e glycol 0-29 Packet by ity of 3350 17 00:00: mouth [place] gram powder 00 daily. Medica l [facility] polyethylen 2020-04 Yes [id number] 17g Take 1 [facility] e glycol 0-29 Packet by ity of 3350 17 00:00: mouth [place] gram powder 00 daily. Medica l [facility] polyethylen 2020-04 Yes [id number] 17g Take 1 [facility] e glycol 0-29 Packet by ity of 3350 17 00:00: mouth [place] gram powder 00 daily. Medica l [facility] polyethylen 2020-04 Yes [id number] 17g Take 1 [facility] e glycol 0-29 Packet by ity of 3350 17 00:00: mouth [place] gram powder 00 daily. Medica l [facility] polyethylen 2020-04 Yes [id number] 17g Take 1 [facility] e glycol 0-29 Packet by ity of 3350 17 00:00: mouth [place] gram powder 00 daily. Medica l [facility] polyethylen 2020-04 Yes [id number] 17g Take 1 [facility] e glycol 0-29 Packet by ity of 3350 17 00:00: mouth [place] gram powder 00 daily. Medica l [facility] polyethylen 2020-04 Yes [id number] 17g Take 1 [facility] e glycol 0-29 Packet by ity of 3350 17 00:00: mouth [place] gram powder 00 daily. Medica l [facility] polyethylen 2020-04 Yes [id number] 17g Take 1 [facility] e glycol 0-29 Packet by ity of 3350 17 00:00: mouth [place] gram powder 00 daily. Medica l [facility] polyethylen 2020-04 Yes [id number] 17g Take 1 [facility] e glycol 0-29 Packet by ity of 3350 17 00:00: mouth [place] gram powder 00 daily. Medica l [facility] polyethylen 2020-04 Yes [id number] 17g Take 1 [facility] e glycol 0-29 Packet by ity of 3350 17 00:00: mouth [place] gram powder 00 daily. Medica l [facility] polyethylen 2020-04 Yes [id number] 17g Take 1 [facility] e glycol 0-29 Packet by ity of 3350 17 00:00: mouth [place] gram powder 00 daily. Medica [facility] polyethylen 2020-04 Yes [id number] 17g Take 1 [facility] e glycol 0-29 Packet by ity of 3350 17 00:00: mouth [place] gram powder 00 daily. Medica [facility] polyethylen 2020-04 Yes [id number] 17g Take 1 [facility] e glycol 0-29 Packet by ity of 3350 17 00:00: mouth [place] gram powder 00 daily. Medica [facility] polyethylen 2020-04 Yes [id number] 17g Take 1 [facility] e glycol 0-29 Packet by ity of 3350 17 00:00: mouth [place] gram powder 00 daily. Medica [facility] polyethylen 2020-04 Yes [id number] 17g Take 1 [facility] e glycol 0-29 Packet by ity of 3350 17 00:00: mouth [place] gram powder 00 daily. Medica [facility] polyethylen 2020-04 Yes [id number] 17g Take 1 [facility] e glycol 0-29 Packet by ity of 3350 17 00:00: mouth [place] gram powder 00 daily. Medica [facility] polyethylen 2020-04 Yes [id number] 17g Take 1 [facility] e glycol 0-29 Packet by ity of 3350 17 00:00: mouth [place] gram powder 00 daily. Medica [facility] polyethylen 2020-04 Yes [id number] 17g Take 1 [facility] e glycol 0-29 Packet by ity of 3350 17 00:00: mouth [place] gram powder 00 daily. Medica [facility] polyethylen 2020-04 Yes [id number] 17g Take 1 [facility] e glycol 0-29 Packet by ity of 3350 17 00:00: mouth [place] gram powder 00 daily. Medica [facility] polyethylen 2020-04 Yes [id number] 17g Take 1 [facility] e glycol 0-29 Packet by ity of 3350 17 00:00: mouth [place] gram powder 00 daily. Medica [facility] polyethylen 2020-04 Yes [id number] 17g Take 1 [facility] e glycol 0-29 Packet by ity of 3350 17 00:00: mouth [place] gram powder 00 daily. Medica [facility] polyethylen 2020-04 Yes [id number] 17g Take 1 [facility] e glycol 0-29 Packet by ity of 3350 17 00:00: mouth [place] gram powder 00 daily. Medica [facility] polyethylen 2020-04 Yes [id number] 17g Take 1 [facility] e glycol 0-29 Packet by ity of 3350 17 00:00: mouth [place] gram powder 00 daily. [facility]ica [facility] polyethylen 2020-04 Yes [id number] 17g Take 1 [facility] e glycol 0-29 Packet by ity of 3350 17 00:00: mouth [place] gram powder 00 daily. Medica [facility] polyethylen 2020-04 Yes [id number] 17g Take 1 [facility] e glycol 0-29 Packet by ity of 3350 17 00:00: mouth [place] gram powder 00 daily. [facility] polyethylen 2020-04 Yes [id number] 17g Take 1 [facility] e glycol 0-29 Packet by ity of 3350 17 00:00: mouth [place] gram powder 00 daily. [facility]ica [facility] polyethylen 2020-04 Yes [id number] 17g Take 1 [facility] e glycol 0-29 Packet by ity of 3350 17 00:00: mouth [place] gram powder 00 daily. Medica [facility] polyethylen 2020-04 Yes [id number] 17g Take 1 [facility] e glycol 0-29 Packet by ity of 3350 17 00:00: mouth [place] gram powder 00 daily. Medica l [facility] polyethylen 2020-04 Yes [id number] 17g Take 1 [facility] e glycol 0-29 Packet by ity of 3350 17 00:00: mouth [place] gram powder 00 daily. Medica [facility] polyethylen 2020-04 Yes [id number] 17g Take 1 [facility] e glycol 0-29 Packet by ity of 3350 17 00:00: mouth [place] gram powder 00 daily. Medica [facility] polyethylen 2020-04 Yes [id number] 17g Take 1 [facility] e glycol 0-29 Packet by ity of 3350 17 00:00: mouth [place] gram powder 00 daily. Medica l [facility] polyethylen 2020-04- No [id number] 17g Take 1 [facility] e glycol 0-29 02-22 Packet by ity o f 3350 17 00:00: 00:00 mouth [place] gram powder 00 :00 daily. Medica l [facility] polyethylen 2020-04- No [id number] 17g Take 1 [facility] e glycol 0-29 02-22 Packet by ity o f 3350 17 00:00: 00:00 mouth [place] gram powder 00 :00 daily. Medica l [facility] polyethylen 2020-04- No [id number] 17g Take 1 [facility] e glycol 0-29 02-22 Packet by ity o f 3350 17 00:00: 00:00 mouth [place] gram powder 00 :00 daily. Medica l [facility] docusate 2020-04 Yes [id number] 100mg Take 1 [facility] 100 mg 0-28 capsule by ity of capsule 00:00: mouth 2 (two) Medical times Branch daily. docusate 2020-04 Yes [id number] 100mg Take 1 [facility] 100 mg 0-28 capsule by ity of capsule 00:00: mouth 2 (two) Medical times Branch daily. docusate 2020-04 Yes [id number] 100mg Take 1 [facility] 100 mg 0-28 capsule by ity of capsule 00:00: mouth (two) Medical times Branch daily. docusate 2020-04 Yes [id number] 100mg Take 1 [facility] 100 mg 0-28 capsule by ity of capsule 00:00: mouth (two) Medical times Branch daily. docusate 2020-04 Yes [id number] 100mg Take 1 [facility] 100 mg 0-28 capsule by ity of capsule 00:00: mouth (two) Medical times Branch daily. docusate 2020-04 Yes [id number] 100mg Take 1 [facility]ivers 100 mg 0-28 capsule by ity of capsule 00:00: mouth (two) Medical times Branch daily. docusate 2020-04 Yes [id number] 100mg Take 1 [facility] 100 mg 0-28 capsule by ity of capsule 00:00: mouth (two) Medical times Branch daily. docusate 2020-04 Yes [id number] 100mg Take 1 [facility]ivers 100 mg 0-28 capsule by ity of capsule 00:00: mouth (two) Medical times Branch daily. docusate 2020-04 Yes [id number] 100mg Take 1 [facility] 100 mg 0-28 capsule by ity of capsule 00:00: mouth (two) Medical times Branch daily. docusate 2020-04 Yes [id number] 100mg Take 1 [facility]ivers 100 mg 0-28 capsule by ity of capsule 00:00: mouth (two) Medical times Branch daily. docusate 2020-04 Yes [id number] 100mg Take 1 [facility]ivers 100 mg 0-28 capsule by ity of capsule 00:00: mouth (two) Medical times Branch daily. docusate 2020-04 Yes [id number] 100mg Take 1 [facility]ivers 100 mg 0-28 capsule by ity of capsule 00:00: mouth (two) Medical times Branch daily. docusate 2020-04 Yes [id number] 100mg Take 1 [facility] 100 mg 0-28 capsule by ity of capsule 00:00: mouth (two) Medical times Branch daily. docusate 2020-04 Yes [id number] 100mg Take 1 [facility] 100 mg 0-28 capsule by ity of capsule 00:00: mouth (two) Medical times Branch daily. docusate 2020-04 Yes [id number] 100mg Take 1 [facility] 100 mg 0-28 capsule by ity of capsule 00:00: mouth (two) Medical times Branch daily. docusate 2020-04 Yes [id number] 100mg Take 1 [facility] 100 mg 0-28 capsule by ity of capsule 00:00: mouth (two) Medical times Branch daily. docusate 2020-04 Yes [id number] 100mg Take 1 [facility] 100 mg 0-28 capsule by ity of capsule 00:00: mouth (two) Medical times Branch daily. docusate 2020-04 Yes [id number] 100mg Take 1 [facility]ivers 100 mg 0-28 capsule by ity of capsule 00:00: mouth (two) Medical times Branch daily. docusate 2020-04 Yes [id number] 100mg Take 1 [facility]ivers 100 mg 0-28 capsule by ity of capsule 00:00: mouth (two) Medical times Branch daily. docusate 2020-04 Yes [id number] 100mg Take 1 [facility] nivers 100 mg 0-28 capsule by ity of capsule 00:00: mouth (two) Medical times Branch daily. docusate 2020-04 Yes [id number] 100mg Take 1 [facility] nivers 100 mg 0-28 capsule by ity of capsule 00:00: mouth (two) Medical times Branch daily. docusate 2020-04 Yes [id number] 100mg Take 1 [facility]ivers 100 mg 0-28 capsule by ity of capsule 00:00: mouth (two) Medical times Branch daily. docusate 2020-04 Yes [id number] 100mg Take 1 [facility]ivers 100 mg 0-28 capsule by ity of capsule 00:00: mouth (two) Medical times Branch daily. docusate 2020-04 Yes [id number] 100mg Take 1 [facility] nivers 100 mg 0-28 capsule by ity of capsule 00:00: mouth (two) Medical times Branch daily. docusate 2020-04 Yes [id number] 100mg Take 1 [facility]ivers 100 mg 0-28 capsule by ity of capsule 00:00: mouth (two) Medical times Branch daily. docusate 2020-04 Yes [id number] 100mg Take 1 [facility]ivers 100 mg 0-28 capsule by ity of capsule 00:00: mouth (two) Medical times Branch daily. docusate 2020-04 Yes [id number] 100mg Take 1 [facility] 100 mg 0-28 capsule by ity of capsule 00:00: mouth (two) Medical times Branch daily. docusate 2020-04 Yes [id number] 100mg Take 1 [facility] nivers 100 mg 0-28 capsule by ity of capsule 00:00: mouth (two) Medical times Branch daily. docusate 2020-04 Yes [id number] 100mg Take 1 [facility] nivers 100 mg 0-28 capsule by ity of capsule 00:00: mouth [place] (two) Medical times Branch daily. docusate 2020-04 Yes [id number] 100mg Take 1 [facility] nivers 100 mg 0-28 capsule by ity of capsule 00:00: mouth [place] (two) Medical times Branch daily. docusate 2020-04 Yes [id number] 100mg Take 1 [facility] 100 mg 0-28 capsule by ity of capsule 00:00: mouth [place] (two) Medical times Branch daily. docusate 2020-04 Yes [id number] 100mg Take 1 [facility] 100 mg 0-28 capsule by ity of capsule 00:00: mouth [place] (two) Medical times Branch daily. docusate 2020-04 Yes [id number] 100mg Take 1 [facility] nivers 100 mg 0-28 capsule by ity of capsule 00:00: mouth [place] (two) Medical times Branch daily. docusate 2020-04 Yes [id number] 100mg Take 1 [facility] nivers 100 mg 0-28 capsule by ity of capsule 00:00: mouth 2 [place] (two) Medical times Branch daily. docusate 2020-04 Yes [id number] 100mg Take 1 [facility] nivers 100 mg 0-28 capsule by ity of capsule 00:00: mouth 2 [place] (two) Medical times Branch daily. docusate 2020-04 Yes [id number] 100mg Take 1 [facility] nivers 100 mg 0-28 capsule by ity of capsule 00:00: mouth [place] (two) Medical times Branch daily. docusate 2020-04 Yes [id number] 100mg Take 1 [facility] nivers 100 mg 0-28 capsule by ity of capsule 00:00: mouth 2 [place] (two) Medical times Branch daily. docusate 2020-04 Yes [id number] 100mg Take 1 [facility]ivers 100 mg 0-28 capsule by ity of capsule 00:00: mouth 2 [place] (two) Medical times Branch daily. docusate 2020-04 Yes [id number] 100mg Take 1 [facility] 100 mg 0-28 capsule by ity of capsule 00:00: mouth 2 [place] (two) Medical times Branch daily. docusate 2020-04 Yes [id number] 100mg Take 1 [facility]ivers 100 mg 0-28 capsule by ity of capsule 00:00: mouth [place] (two) Medical times Branch daily. docusate 2020-04 Yes [id number] 100mg Take 1 [facility]ivers 100 mg 0-28 capsule by ity of capsule 00:00: mouth [place] (two) Medical times Branch daily. docusate 2020-04- No [id number] 100mg Take 1 [facility] 100 mg 0-28 02-22 capsule by ity of capsule 00:00: 00:00 mouth 2 [place] 00 :00 (two) Medical times Branch daily. docusate 2020-04- No [id number] 100mg Take 1 [facility] 100 mg 0-28 02-22 capsule by ity of capsule 00:00: 00:00 mouth 2 [place] 00 :00 (two) Medical times Branch daily. docusate 2020-04- No [id number] 100mg Take 1 [facility] 100 mg 0-28 02-22 capsule by ity of capsule 00:00: 00:00 mouth 2 [place] 00 :00 (two) Medical times Branch daily. gabapentin 2016- Yes Take by [facility] ers 300 mg 4-21 mouth ity of capsule 00:00: daily. [place] [id number] Medical Branch lidocaine 5 2016-0 Yes Univer [...] [place] patch 00 Medical Branch gabapentin 2017-0 3- No Take by [facility] vers 300 mg 4-21 09-29 mouth ity of capsule 00:00: 00:00 daily. [place] 00 :00 Medical Branch lidocaine 5 2017-0 3- No Unive rs % (700 4-21 -29 ity of mg/patch) 00:00: 00:00 [place] patch 00 :00 Medical Branch pantoprazol 2017-0 Yes [...] EC 4-14 ity of tablet 00:00: [place] [facility] pantoprazol 2017-0 Yes Univer s e 40 mg EC 4-14 ity of tablet 00:00: [place] [facility] pantoprazol 2017-0 Yes Univer s e 40 mg EC 4-14 ity of tablet 00:00: [place] [facility] pantoprazol 2017-0 Yes Univer s e 40 mg EC 4-14 ity of tablet 00:00: [place] [facility] pantoprazol 2017-0 Yes Univer s e 40 mg EC 4-14 ity of tablet 00:00: [place] [facility] pantoprazol 2017-0 Yes Univer s e 40 mg EC 4-14 ity of tablet 00:00: [place] [facility] pantoprazol 2017-0 Yes Univer s e 40 mg EC 4-14 ity of tablet 00:00: [place] [facility] pantoprazol 2017-0 Yes Univer s e 40 mg EC 4-14 ity of tablet 00:00: [place] [facility] pantoprazol 2017-0 Yes Univer s e 40 mg EC 4-14 ity of tablet 00:00: [place] [facility] pantoprazol 2017-0 Yes Univer s e 40 mg EC 4-14 ity of tablet 00:00: [place] [facility] pantoprazol 2017-0 Yes Univer s e 40 mg EC 4-14 ity of tablet 00:00: [place] [facility] pantoprazol 2017-0 Yes Univer s e 40 mg EC 4-14 ity of tablet 00:00: [place] [facility] pantoprazol 2017-0 Yes Univer s e 40 mg EC 4-14 ity of tablet 00:00: [place] [facility] pantoprazol 2017-0 Yes Univer s e 40 mg EC 4-14 ity of tablet 00:00: [place] [facility] pantoprazol 2017-0 Yes Univer s [...] EC 4-14 ity of tablet 00:00: [place] [facility] pantoprazol 2017-0 Yes Univer s e 40 mg EC 4-14 ity of tablet 00:00: [place] [facility] pantoprazol 2017-0 Yes Univer s e 40 mg EC 4-14 ity of tablet 00:00: [place] [facility] pantoprazol 2017-0 Yes Univer s e 40 mg EC 4-14 ity of tablet 00:00: [place] [facility] pantoprazol 2017-0 Yes Univer s e 40 mg EC 4-14 ity of tablet 00:00: [place] [facility] pantoprazol 2017-0 Yes Univer s e 40 mg EC 4-14 ity of tablet 00:00: [place] [facility] pantoprazol 2017-0 Yes Univer s e 40 mg EC 4-14 ity of tablet 00:00: [place] [facility] pantoprazol 2017-0 Yes Univer s e 40 mg EC 4-14 ity of tablet 00:00: [place] [facility] pantoprazol 2017-0 Yes Univer s e 40 mg EC 4-14 ity of tablet 00:00: [address] Branch pantoprazol 2017-0 Yes Univer s e 40 mg EC 4-14 ity of tablet 00:00: [place] [facility] pantoprazol 2017-0 Yes Univer s e 40 mg EC 4-14 ity of tablet 00:00: [place] [facility] pantoprazol 2017-0 Yes Univer s e 40 mg EC 4-14 ity of tablet 00:00: [place] [facility] pantoprazol 2017-0 Yes Univer s e 40 mg EC 4-14 ity of tablet 00:00: [place] [facility] pantoprazol 2017-0 Yes Univer s e 40 mg EC 4-14 ity of tablet 00:00: [place] [facility] pantoprazol 2017-0 Yes Univer s e 40 mg EC 4-14 ity of tablet 00:00: [place] [facility] pantoprazol 2017-0 Yes Univer s e 40 mg EC 4-14 ity of tablet 00:00: [place] [facility] pantoprazol 2017-0 Yes Univer s e 40 mg EC 4-14 ity of tablet 00:00: [place] [facility] pantoprazol 2017-0 Yes Univer s e 40 mg EC 4-14 ity of tablet 00:00: [place] [facility] pantoprazol 2017-0 Yes Univer s e 40 mg EC 4-14 ity of tablet 00:00: [place] [facility] pantoprazol 2017-0 Yes Univer s e 40 mg EC 4-14 ity of tablet 00:00: [place] [facility] pantoprazol 2017-0 Yes Univer s e 40 mg EC 4-14 ity of tablet 00:00: [place] [facility] pantoprazol 2017-0 Yes Univer s e 40 mg EC 4-14 ity of tablet 00:00: [address] Branch pantoprazol 2017-0 Yes Univer s e 40 mg EC 4-14 ity of tablet 00:00: [address] Branch pantoprazol 2017-0 Yes Univer s e 40 mg EC 4-14 ity of tablet 00:00: [address] Branch pantoprazol 2017-0 Yes Univer s e 40 mg EC 4-14 ity of tablet 00:00: [address] Branch pantoprazol 2017-0 Yes Univer s e 40 mg EC 4-14 ity of tablet 00:00: [address] Branch pantoprazol 2017-0 Yes Univer s e 40 mg EC 4-14 ity of tablet 00:00: [place] [facility] pantoprazol 2017-0 Yes Univer s e 40 mg EC 4-14 ity of tablet 00:00: [place] [facility] pantoprazol 2017-0 Yes Univer s e 40 mg EC 4-14 ity of tablet 00:00: [place] [facility] pantoprazol 2017-0 Yes Univer s e 40 mg EC 4-14 ity of tablet 00:00: [address] Branch pantoprazol 2017-0 Yes Univer s e 40 mg EC 4-14 ity of tablet 00:00: [place] [facility] pantoprazol 2017-0 Yes Univer s e 40 mg EC 4-14 ity of tablet 00:00: [place] [facility] pantoprazol 2017-0 Yes Univer s e 40 mg EC 4-14 ity of tablet 00:00: [place] [facility] pantoprazol 2017-0 Yes Univer s e 40 mg EC 4-14 ity of tablet 00:00: [place] [facility] pantoprazol 2017-0 Yes Univer s e 40 mg EC 4-14 ity of tablet 00:00: [place] [facility] pantoprazol 2017-0 Yes Univer s e 40 mg EC 4-14 ity of tablet 00:00: [place] [facility] pantoprazol 2017-0 Yes Univer s e 40 mg EC 4-14 ity of tablet 00:00: [place] [facility] pantoprazol 2017-0 Yes Univer s e 40 mg EC 4-14 ity of tablet 00:00: [place] [facility] pantoprazol 2017-0 Yes Univer s e 40 mg EC 4-14 ity of tablet 00:00: [place] [facility] pantoprazol 2017-0 Yes Univer s e 40 mg EC 4-14 ity of tablet 00:00: [place] [facility] pantoprazol 2017-0 Yes Univer s e 40 mg EC 4-14 ity of tablet 00:00: [place] [facility] pantoprazol 2017-0 Yes Univer s e 40 mg EC 4-14 ity of tablet 00:00: [place] [facility] pantoprazol 2017-0 Yes Univer s e 40 mg EC 4-14 ity of tablet 00:00: [place] [facility] pantoprazol 2017-0 Yes Univer s e 40 mg EC 4-14 ity of tablet 00:00: [place] [facility] pantoprazol 2017-0 Yes Univer s e 40 mg EC 4-14 ity of tablet 00:00: [place] [facility] pantoprazol 2017-0 Yes Univer s e 40 mg EC 4-14 ity of tablet 00:00: [place] [facility] pantoprazol 2017-0 Yes Univer s e 40 mg EC 4-14 ity of tablet 00:00: [place] [facility] pantoprazol 2017-0 Yes Univer s e 40 mg EC 4-14 ity of tablet 00:00: [place] [facility] pantoprazol 2017-0 Yes Univer s e 40 mg EC 4-14 ity of tablet 00:00: [place] [facility] pantoprazol 2017-0 Yes Univer s [...] EC 4-14 ity of tablet 00:00: [place] [facility] pantoprazol 2017-0 Yes Univer s e 40 mg EC 4-14 ity of tablet 00:00: [place] [facility] pantoprazol 2017-0 Yes Univer s e 40 mg EC 4-14 ity of tablet 00:00: [place] [facility] pantoprazol 2017-0 Yes Univer s e 40 mg EC 4-14 ity of tablet 00:00: [place] [facility] pantoprazol 2017-0 Yes Univer s e 40 mg EC 4-14 ity of tablet 00:00: [place] [facility] pantoprazol 2017-0 Yes Univer s e 40 mg EC 4-14 ity of tablet 00:00: [address] Branch pantoprazol 2017-0 Yes Univer s e 40 mg EC 4-14 ity of tablet 00:00: [place] [facility] pantoprazol 2017-0 Yes Univer s e 40 mg EC 4-14 ity of tablet 00:00: [place] [facility] pantoprazol 2017-0 Yes Univer s e 40 mg EC 4-14 ity of tablet 00:00: [place] [facility] pantoprazol 2017-0 Yes Univer s e 40 mg EC 4-14 ity of tablet 00:00: [place] [facility] pantoprazol 2017-0 Yes Univer s e 40 mg EC 4-14 ity of tablet 00:00: [place] [address] [facility] Branch pantoprazol 2017-0 Yes Univer s e 40 mg EC 4-14 ity of tablet 00:00: [place] [facility] pantoprazol 2017-0 Yes Univer s [...] EC 4-14 ity of tablet 00:00: [place] [facility] pantoprazol 2017-0 Yes Univer s e 40 mg EC 4-14 ity of tablet 00:00: [place] [facility] pantoprazol 2017-0 Yes Univer s e 40 mg EC 4-14 ity of tablet 00:00: [place] [facility] pantoprazol 2017-0 Yes Univer s e 40 mg EC 4-14 ity of tablet 00:00: [address] pantoprazol 2017-0 Yes Univer s e 40 mg EC 4-14 ity of tablet 00:00: [place] [facility] pantoprazol 2017-0 Yes Univer s e 40 mg EC 4-14 ity of tablet 00:00: [address] pantoprazol 2017-0 Yes Univer s e 40 mg EC 4-14 ity of tablet 00:00: [address] Branch pantoprazol 2017-0 Yes Univer s e 40 mg EC 4-14 ity of tablet 00:00: [address] pantoprazol 2017-0 Yes Univer s e 40 mg EC 4-14 ity of tablet 00:00: [address] Branch pantoprazol 2017-0 Yes Univer s e 40 mg EC 4-14 ity of tablet 00:00: [place] [facility] pantoprazol 2017-0 Yes Univer s e 40 mg EC 4-14 ity of tablet 00:00: [place] [facility] pantoprazol 2017-0 Yes Univer s e 40 mg EC 4-14 ity of tablet 00:00: [place] [facility] pantoprazol 2017-0 Yes Univer s e 40 mg EC 4-14 ity of tablet 00:00: [place] [facility] pantoprazol 2017-0 Yes Univer s e 40 mg EC 4-14 ity of tablet 00:00: [place] [facility] pantoprazol 2017-0 Yes Univer s [...] mg EC 4-14 ity of tablet 00:00: [address] Branch pantoprazol 2017-0 Yes Univer s e 40 mg EC 4-14 ity of tablet 00:00: [place] [facility] pantoprazol 2017-0 Yes Univer s e 40 mg EC 4-14 ity of tablet 00:00: [place] [facility] pantoprazol 2017-0 Yes Univer s e 40 mg EC 4-14 ity of tablet 00:00: [address] Branch pantoprazol 2017-0 Yes Univer s e 40 mg EC 4-14 ity of tablet 00:00: [place] [facility] pantoprazol 2017-0 Yes Univer s e 40 mg EC 4-14 ity of tablet 00:00: [place] [facility] pantoprazol 2017-0 Yes Univer s e 40 mg EC 4-14 ity of tablet 00:00: [place] 00 [facility] pantoprazol 2017-0 Yes Univer s e 40 mg EC 4-14 ity of tablet 00:00: [place] [facility] pantoprazol 2017-0 Yes Univer s e 40 mg EC 4-14 ity of tablet 00:00: [place] [facility] pantoprazol 2017-0 Yes Univer s e 40 mg EC 4-14 ity of tablet 00:00: [place] [facility] pantoprazol 2017-0 Yes Univer s e 40 mg EC 4-14 ity of tablet 00:00: [place] 00 [facility] pantoprazol 2017-0 Yes Univer s e 40 mg EC 4-14 ity of tablet 00:00: [place] [facility] pantoprazol 2016-2022- No Unive rs e 40 mg EC 4-14 01-11 ity of tablet 00:00: 00:00 [place] 00 :00 [facility] aspirin 81 2015-04 Yes 81mg [...] :00 daily. Medical [facility] Immunizations Ordered Filled Date Status Comments Source Immunization Name Immunization Name Influenza Virus 2021-03-06 Completed Universit y [...] Im,preserve Free Branch 65+ (FLUAD) Influenza Virus Unknown Completed [facility] Vaccine,[facility] [place] [facility] 65+ (FLUAD) Influenza Virus Unknown Completed [facility] Vaccine,quad [place] [facility] Im,preserve Free [facility] 65+ (FLUAD) Influenza Virus Unknown Completed [facility] of Vaccine,quad [place] [facility] Im,preserve Free [facility] 65+ (FLUAD) Influenza Virus Unknown Completed [facility] of Vaccine,quad [place] [facility] Im,preserve Free [facility] 65+ (FLUAD) Influenza Virus Unknown Completed [facility] of Vaccine,quad [place] [facility] Im,preserve Free [facility] 65+ (FLUAD) Influenza Virus Unknown Completed [facility] of Vaccine,quad [place] [facility] Im,preserve Free [facility] 65+ (FLUAD) Influenza Virus Unknown Completed [facility] of Vaccine,quad [place] [facility] Im,preserve Free [facility] 65+ (FLUAD) Influenza Virus Unknown Completed [facility] of Vaccine,quad [place] [facility] Im,preserve Free [facility] 65+ (FLUAD) Influenza Virus Unknown Completed [facility] of Vaccine,quad [place] [facility] Im,preserve Free [facility] 65+ (FLUAD) Influenza Virus Unknown Completed [facility] of Vaccine,quad [place] [facility] Im,preserve Free [facility] 65+ (FLUAD) Influenza Virus Unknown Completed [facility] of Vaccine,quad [place] [facility] Im,preserve Free [facility] 65+ (FLUAD) Influenza Virus Unknown Completed [facility] of Vaccine,quad [place] [facility] Im,preserve Free [facility] 65+ (FLUAD) Influenza Virus Unknown Completed [facility] of Vaccine,quad [place] [facility] Im,preserve Free [facility] 65+ (FLUAD) Influenza Virus Unknown Completed [facility] of Vaccine,quad [place] [facility] Im,preserve Free [facility] 65+ (FLUAD) Influenza Virus Unknown Completed [facility] of Vaccine,quad [place] [facility] Im,preserve Free [facility] 65+ (FLUAD) Influenza Virus Unknown Completed [facility] of Vaccine,quad [place] [facility] Im,preserve Free [facility] 65+ (FLUAD) Influenza Virus Unknown Completed [facility] of Vaccine,quad [place] [facility] Im,preserve Free [facility] 65+ (FLUAD) Influenza Virus Unknown Completed [facility] of Vaccine,quad [place] [facility] Im,preserve Free [facility] 65+ (FLUAD) Influenza Virus Unknown Completed [facility] of Vaccine,quad [place] [facility] Im,preserve Free [facility] 65+ (FLUAD) Influenza Virus Unknown Completed [facility] of Vaccine,quad [place] [facility] Im,preserve Free [facility] 65+ (FLUAD) Influenza Virus Unknown Completed [facility] of Vaccine,quad [place] [facility] Im,preserve Free [facility] 65+ (FLUAD) Influenza Virus Unknown Completed [facility] of Vaccine,quad [place] [facility] Im,preserve Free [facility] 65+ (FLUAD) Influenza Virus Unknown Completed [facility] of Vaccine,quad [place] [facility] Im,preserve Free Branch 65+ (FLUAD) Influenza Virus Unknown Completed Universit y of Vaccine (3+ yrs) [facility] dical Branch Pneumococcal Unknown Completed University o f Polysaccharide, [place] [facility] PPSV23 (PNEUMOVAX) Branch Influenza Virus Unknown Completed [facility]it y of Vaccine,quad [place] [facility] Im,preserve Free Branch 65+ (FLUAD) Influenza Virus Unknown Completed Universit y of Vaccine (3+ yrs) [facility] dical Branch Pneumococcal Unknown Completed University o f Polysaccharide, [place] [facility] PPSV23 (PNEUMOVAX) Branch Influenza Virus Unknown Completed [facility] y of Vaccine,quad [place] [facility] Im,preserve Free Branch 65+ (FLUAD) Influenza Virus Unknown Completed Universit y of Vaccine (3+ yrs) [facility] dical Branch Pneumococcal Unknown Completed University o f Polysaccharide, [place] [facility] PPSV23 (PNEUMOVAX) Branch Influenza Virus Unknown Completed [facility] y of Vaccine,quad [place] [facility] Im,preserve Free Branch 65+ (FLUAD) Influenza Virus Unknown Completed [facility] y of Vaccine,quad [place] [facility] Im,preserve Free Branch 65+ (FLUAD) Influenza Virus Unknown Completed Universit y of Vaccine (3+ yrs) [facility] dical Branch Pneumococcal Unknown Completed University o f Polysaccharide, [place] [facility] PPSV23 (PNEUMOVAX) Branch Influenza Virus Unknown Completed [facility]it y of Vaccine,quad [place] [facility] Im,preserve Free Branch 65+ (FLUAD) Influenza Virus Unknown Completed [facility] y of Vaccine,quad [place] [facility] Im,preserve Free Branch 65+ (FLUAD) Influenza Virus Unknown Completed Universit y of Vaccine (3+ yrs) [facility] dical Branch Pneumococcal Unknown Completed University o f Polysaccharide, [place] [facility] PPSV23 (PNEUMOVAX) Branch Influenza Virus Unknown Completed [facility]it y of Vaccine,quad [place] [facility] Im,preserve Free Branch 65+ (FLUAD) Influenza Virus Unknown Completed [facility] y of Vaccine,quad [place] [facility] Im,preserve Free Branch 65+ (FLUAD) Influenza Virus Unknown Completed Universit y of Vaccine (3+ yrs) [facility] dical Branch Pneumococcal Unknown Completed University o f Polysaccharide, [place] [facility] PPSV23 (PNEUMOVAX) Branch Influenza Virus Unknown Completed [facility]it y of Vaccine,quad [place] [facility] Im,preserve Free Branch 65+ (FLUAD) Influenza Virus Unknown Completed [facility] y of Vaccine,quad [place] [facility] Im,preserve Free Branch 65+ (FLUAD) Influenza Virus Unknown Completed Universit y of Vaccine (3+ yrs) [facility] dical Branch Pneumococcal Unknown Completed University o f Polysaccharide, [place] [facility] PPSV23 (PNEUMOVAX) Branch Influenza Virus Unknown Completed [facility]it y of Vaccine,quad [place] [facility] Im,preserve Free Branch 65+ (FLUAD) Vital Signs Vital Name Observation Time Observation Value Comments Source Systolic blood 2023-02-03 16:24:00 110 mm[Hg] [facility] Diastolic blood 2023-02-03 16:24:00 43 [facility]-03 16:24:00 43 /min [facility] acute hospital Body temperature 2023-02-03 16:24:00 36.5 Allie [facility] Respiratory rate 2023-02-03 16:24:00 18 /min [facility] Oxygen saturation in 2023-02-03 16:24:00 96 /min [facility] Arterial blood by [facility] Pulse oximetry [place] Body weight 2023-02-03 08:50:00 53.479 kg [facility] acute hospital BMI 2023-02-03 08:50:00 20.89 kg/m2 [facility] acute hospital Body height 2023-02-02 20:58:00 160 cm [facility] acute hospital Systolic blood 2023-01-11 20:54:00 123 mm[Hg] Univer sity of pressure [place] [facility] Diastolic blood 2023-01-11 20:54:00 53 mm[Hg] Unive rsity of pressure [place] [facility] Heart rate 2023-01-11 20:54:00 63 /min [facility] [place] [facility] Body temperature 2023-01-11 20:54:00 36.22 Allie [facility] [place] [facility] Respiratory rate 2023-01-11 20:54:00 18 /min [facility] [place] [facility] Oxygen saturation in 2023-01-11 20:54:00 99 /min University of Arterial blood by [facility] Pulse oximetry Branch Body weight 2023-01-11 09:14:00 44.316 kg [facility] [place] [facility] BMI 2023-01-11 09:14:00 17.31 kg/m2 [facility] [place] [facility] Body height 2023-01-09 20:32:00 160 cm [facility] [place] [facility] Systolic blood 2022-12-20 20:44:00 139 mm[Hg] Univer sity of pressure [place] [facility] Diastolic blood 2022-12-20 20:44:00 60 mm[Hg] Unive rsity of pressure [place] [facility] Heart rate 2022-12-20 20:44:00 53 /min [facility] [place] [facility] Body height 2022-12-20 20:44:00 160 cm [facility] [place] [facility] Body weight 2022-12-20 20:44:00 44.815 kg [facility] [place] [facility] BMI 2022-12-20 20:44:00 17.50 kg/m2 [facility] [place] [facility] Oxygen saturation in 2022-12-20 20:41:00 100 /min University of Arterial blood by [facility] Pulse oximetry Branch Systolic blood 2022-08-28 18:09:00 134 mm[Hg] Univer sity of pressure [place] [facility] Diastolic blood 2022-08-28 18:09:00 72 mm[Hg] Unive rsity of pressure [place] [facility] Heart rate 2022-08-28 18:09:00 71 /min [facility] [place] [facility] Respiratory rate 2022-08-28 18:09:00 19 /min [facility] [place] [facility] Body height 2022-08-28 18:09:00 160 cm [facility] [place] [facility] Body weight 2022-08-28 18:09:00 46.63 kg [facility] [place] [facility] BMI 2022-08-28 18:09:00 18.21 kg/m2 [facility] [place] [facility] Oxygen saturation in 2022-08-28 18:09:00 98 /min University of Arterial blood by [place] [facility] Pulse oximetry Branch Systolic blood 2022-06-25 15:38:00 [...] /min University of Arterial blood by [place] [facility] Pulse oximetry Branch Body weight 2022-06-12 [...] 2022-05-10 17:54:00 68 /min [facility] [place] [facility] Respiratory rate 2022-05-10 17:54:00 20 /min [facility] [place] [facility] Body height 2022-05-10 17:54:00 160 cm [facility] [place] [facility] Body weight 2022-05-10 17:54:00 46.085 kg [facility] [place] [facility] BMI 2022-05-10 17:54:00 18.00 kg/m2 [facility] [place] [facility] Oxygen saturation in 2022-05-10 17:54:00 99 /min University of Arterial blood by [facility] Pulse oximetry Branch Systolic blood 2022-02-28 19:10:00 161 mm[Hg] Univer sity of pressure [place] [facility] Diastolic blood 2022-02-28 19:10:00 59 mm[Hg] Unive rsity of pressure [place] [facility] Heart rate 2022-02-28 19:10:00 50 /min [facility] [place] [facility] Oxygen saturation in 2022-02-28 19:10:00 100 /min University of Arterial blood by [facility] Pulse oximetry Branch Body temperature 2022-02-28 19:08:00 36.11 Allie [facility] [place] [facility] Respiratory rate 2022-02-28 19:08:00 16 /min [facility] [place] [facility] Body weight 2022-02-28 19:08:00 49.125 kg [facility] [place] [facility] BMI 2022-02-28 19:08:00 19.18 kg/m2 [facility] [place] [facility] Systolic blood 2022-06-25 15:38:00 137 mm[Hg] Univer sity of pressure [facility] Diastolic blood 2022-06-25 15:38:00 46 mm[Hg] Unive rsity of pressure [facility] Heart rate 2022-06-25 15:38:00 56 /min Universi ty of [facility] Body temperature 2022-06-25 15:38:00 36.11 Allie Univ ers[facility] Respiratory rate 2022-06-25 15:38:00 17 /min Univ ersity of [facility] Body height 2022-06-25 15:38:00 160 cm Universi [facility] of [facility] Body weight 2022-06-25 15:38:00 46.494 kg Universi ty of [facility] BMI 2022-06-25 15:38:00 18.16 kg/m2 [facility] of [facility] Systolic blood 2022-06-12 13:39:00 124 mm[Hg] Univer sity of [facility] Diastolic blood 2022-06-12 13:39:00 56 mm[Hg] Unive rsity of pressure [facility] Heart rate 2022-06-12 13:39:00 74 /min Universi ty of [facility] Body temperature 2022-06-12 13:39:00 36.67 Allie [facility] ersity of [facility] Respiratory rate 2022-06-12 13:39:00 18 /min [facility] ersity of [facility] Oxygen saturation in 2022-06-12 13:39:00 100 /min [facility] Arterial blood by [facility] Pulse oximetry Branch Body weight 2022-06-12 10:12:00 46.494 kg [facility] [place] [facility] [place] BMI 2022-06-12 10:12:00 18.16 kg/m2 Universi ty of [facility] Body height 2022-06-06 23:33:00 160 cm Universi ty of [facility] Systolic blood 2022-05-27 16:06:00 109 mm[Hg] [facility] Diastolic blood 2022-05-27 16:06:00 53 mm[Hg] [facility] Heart rate 2022-05-27 16:03:00 69 /min [facility] Body temperature 2022-05-27 16:03:00 37.11 Allie [facility] Respiratory rate 2022-05-27 16:03:00 17 /min [facility] Oxygen saturation in 2022-05-27 16:03:00 96 /min [facility] Arterial blood by Medical Ce [facility]ter Pulse oximetry Systolic blood 2022-05-24 07:00:00 117 mm[Hg] [facility] Diastolic blood 2022-05-24 07:00:00 73 mm[Hg] [facility] Heart rate 2022-05-24 07:00:00 81 /min [facility] Body temperature 2022-05-24 07:00:00 36.67 Allie [facility] Respiratory rate 2022-05-24 07:00:00 15 /min [facility] Oxygen saturation in 2022-05-24 07:00:00 96 /min [facility] Arterial blood by Medical Ce [facility]ter Pulse oximetry Systolic blood 2022-05-22 08:00:00 126 mm[Hg] [facility] Diastolic blood 2022-05-22 08:00:00 62 mm[Hg] [facility] Heart rate 2022-05-22 08:00:00 63 /min [facility] Respiratory rate 2022-05-22 08:00:00 24 /min [facility] Oxygen saturation in 2022-05-22 08:00:00 98 /min [facility] Arterial blood by Medical Ce [facility]ter Pulse oximetry Body temperature 2022-05-21 16:00:00 36.67 Allie [facility] Systolic blood 2022-05-21 08:23:00 127 mm[Hg] [facility] Diastolic blood 2022-05-21 08:23:00 65 mm[Hg] [facility] Heart rate 2022-05-21 07:30:00 76 /min [facility] Respiratory rate 2022-05-21 07:30:00 17 /min [facility] Oxygen saturation in 2022-05-21 07:30:00 98 /min [facility] Arterial blood by Medical Ce nter Pulse oximetry Body temperature 2022-05-21 00:00:00 36.17 Allie [facility] Body height 2022-05-18 09:00:00 160 cm [facility] Body weight 2022-05-18 09:00:00 47.9 kg [facility] BMI 2022-05-18 09:00:00 18.71 kg/m2 [facility] Procedures Procedure Date / Time Performing Clinician Source Performed TROPONIN I 2023-02-03 08:34:00 Amadeo [facility] PROTHROMBIN TIME / INR 2023-02-03 08:34:00 Jose Villa [facility] [place] TROPONIN I 2023-02-03 01:17:00 Rao [facility] XR FEMUR 2 VW LEFT 2023-02-02 22:37:13 Jose Villa [facility] CREATINE KINASE 2023-02-02 17:37:00 Mazin [facility] MAGNESIUM 2023-02-02 17:37:00 Mazin [facility] TROPONIN I 2023-02-02 17:37:00 Mazin [facility] COMP. METABOLIC PANEL 2023-02-02 17:37:00 Mazin Merrill [facility] ([id number]) [facility] CBC WITH DIFF 2023-02-02 17:37:00 Mazin [facility] PROTHROMBIN TIME / INR 2023-02-02 17:37:00 Mazin Merrill [facility] ACTIVATED PARTIAL 2023-02-02 17:37:00 Mazin Merrill [facility]MINAL PRO-BNP 2023-02-02 17:37:00 Mazin Merrill [facility] URINE DRUG (IMMUNOASSAY) 2023-02-02 17:35:00 Mazin Merrill [facility] SCREEN URINALYSIS 2023-02-02 17:35:00 Mazin Merrill [facility] RAPID INFLUENZA A/B 2023-02-02 17:35:00 Mazin Merrill [facility] COVID-19 (ID NOW RAPID 2023-02-02 17:35:00 Mazin Merrill [facility] TESTING) [facility] XR CHEST 1 VW 2023-02-02 17:24:07 Garfield [facility] o [facility] HB ECG ROUTINE & RHYTHM 2023-02-02 17:20:15 Garfield Mazin [facility] CONSENT/REFUSAL FOR 2023-02-02 17:09:50 Doctor Unassigned, No Un [facility] DIAGNOSIS AND TREATMENT Name Medical Branch MAGNESIUM 2023-01-11 09:00:00 Bonillaandrew [facility] HE[facility] PANEL 2023-01-11 09:00:00 [facility] ([id number]) (ALB,T.PRO,BILI [facility] T,BU/BC,ALT,AST,ALK PHOS) BASIC METABOLIC PANEL 2023-01-11 09:00:00 Alysa Heath [facility] (NA, K, CL, CO2, GLUCOSE, Medica l Branch BUN, CREATININE, CA) CBC WITH DIFF 2023-01-11 09:00:00 Kumar Alysa Jeramy [facility] PROTHROMBIN TIME / INR 2023-01-11 09:00:00 [facility] XR CHEST 1 VW 2023-01-10 15:20:00 Mariia Cardona [facility] MAGNESIUM 2023-01-10 09:35:00 Marli Robert [facility] BASIC METABOLIC PANEL 2023-01-10 09:35:00 Marli Robert [facility] (NA, K, CL, CO2, GLUCOSE, Medica l Branch BUN, CREATININE, CA) CBC WITH DIFF 2023-01-10 09:35:00 Marli Robert [facility] PROTHROMBIN TIME / INR 2023-01-10 09:35:[address] [facility] PROTHROMBIN TIME / INR 2023-01-09 23:39:00 Marli Robert [facility] MAGNESIUM 2023-01-09 10:43:[address] [facility] BASIC METABOLIC PANEL 2023-01-09 10:43:00 Leroy [facility] (NA, K, CL, CO2, GLUCOSE, Medica l Branch BUN, CREATININE, CA) CBC WITH DIFF 2023-01-09 10:43:[address] [facility] PROTHROMBIN TIME / INR 2023-01-09 10:43:00 Timi [facility] HB ECG ROUTINE & RHYTHM 2023-01-08 13:46:26 Radha Mcdowell [facility] MAGNESIUM 2023-01-08 09:25:[address] [facility] BASIC METABOLIC PANEL 2023-01-08 09:25:00 Jose Villa [facility] (NA, K, CL, CO2, GLUCOSE, Medica l Branch BUN, CREATININE, CA) PROTHROMBIN TIME / INR 2023-01-08 09:25:00 Jose Villa [facility] N-TERMINAL PRO-BNP 2023-01-08 09:25:00 Leroy Mskiersten [facility] FECES CULTURE 2023-01-07 15:52:00 Timi [facility] FECAL PATHOGENS BY PCR 2023-01-07 15:51:00 janes [facility] TROPONIN I 2023-01-07 10:08:00 Timi [facility] THYROID STIMULATING 2023-01-07 10:08:00 Timi [facility] HORMONE [facility] CBC WITH DIFF 2023-01-07 10:08:00 Timi [facility] PROTHROMBIN TIME / INR 2023-01-07 10:08:00 Timi [facility] TROPONIN I 2023-01-07 05:56:00 [facility]OLIC PANEL 2023-01-07 05:56:00 [facility] (NA, K, CL, CO2, GLUCOSE, Medica l Branch BUN, CREATININE, CA) URINALYSIS 2023-01-07 00:03:00 Babita Iglesias [facility] CT HEAD WO CONTRAST 2023-01-06 23:40:00 Babita Iglesias [facility] CT LUMBAR SPINE WO 2023-01-06 23:40:00 [facility] XR CHEST 1 VW 2023-01-06 23:25:00 Babita Iglesias [facility] XR HIPS 3 VW RIGHT 2023-01-06 23:15:00 Babita Iglesias [facility] LIPASE 2023-01-06 23:04:00 Babita Iglesias [facility] MAGNESIUM 2023-01-06 23:04:00 Babita Iglesias [facility] TROPONIN I 2023-01-06 23:04:00 Babita Iglesias [facility] COMP. METABOLIC PANEL 2023-01-06 23:04:00 Babita Iglesias [facility] ([id number]) [facility] CBC WITH DIFF 2023-01-06 23:04:00 Babita Iglesias [facility] PROTHROMBIN TIME / INR 2023-01-06 23:04:00 Babita Iglesias [facility] ACTIVATED PARTIAL 2023-01-06 23:04:00 Babita Iglesias [facility] 2023-01-06 23:04:00 Babita Iglesias [facility] HB ECG ROUTINE & RHYTHM 2023-01-06 22:55:15 Babita Iglesias Uni [facility] CONSENT/REFUSAL FOR 2023-01-06 22:35:09 Doctor Unassigned, No [facility] [place] HOSPITAL ADMISSION 2023-01-06 05:01:00 Doctor Unassigned, No Uni [facility] HB ECG ROUTINE & RHYTHM 2022-12-20 20:39:31 Woodrow [facility] PATIENT FINANCIAL 2022-12-20 20:03:45 Doctor Unassigned, No [facility] POLICY Name Medical Branch HOME HEALTH - OTHER 2022-12-06 05:01:00 Doctor Unassigned, No Un [facility] [place] HOME HEALTH - OTHER 2022-11-24 05:01:00 Doctor Unassigned, No Un [facility] [place] EXTERNAL PROVIDER - ADC 2022-11-09 05:01:00 Doctor Unassigned, N o [facility] CARDIOLOGY Name Medical [place] MEDICAL RELEASE/CLEARANCE 2022-10-04 05:01:00 Doctor Unassigned, No [facility] FORMS Name Medical Branch MEDICAL RELEASE/CLEARANCE 2022-08-23 05:01:00 Doctor Unassigned, No [facility] XR HIPS 2 VW RIGHT 2022-08-01 15:29:[address] [facility] CONSENT/REFUSAL FOR 2022-08-01 15:11:45 Doctor Unassigned, No Un [facility] [place] DIAGNOSIS AND TREATMENT [facility] Medical Branch ASSIGNMENT OF BENEFITS 2022-08-01 15:11:28 Doctor Unassigned, No [facility] PROTHROMBIN TIME / INR 2022-07-10 14:51:00 [place] [facility] CONSENT/REFUSAL FOR 2022-07-10 14:37:14 Doctor Unassigned, No Un [facility] [place] DIAGNOSIS AND TREATMENT [facility] Medical Branch CONSENT/REFUSAL FOR 2022-07-10 14:37:14 Doctor Unassigned, No Un [facility] [place] DIAGNOSIS AND TREATMENT [facility] Medical Branch ASSIGNMENT OF BENEFITS 2022-07-10 14:36:56 Doctor Unassigned, No [facility] ASSIGNMENT OF BENEFITS 2022-07-10 14:36:56 Doctor Unassigned, No [facility] PROTHROMBIN TIME / INR 2022-06-25 15:22:00 [place] Dan [facility] PROTHROMBIN TIME / INR 2022-06-12 08:34:00 Mariia Cardona [facility] [place] [facility] MAGNESIUM 2022-06-12 08:34:[address] [facility] BASIC METABOLIC PANEL 2022-06-12 08:34:00 Leslie Espitia [facility] (NA, K, CL, CO2, GLUCOSE, Medica l Branch BUN, CREATININE, CA) CBC WITH DIFF 2022-06-12 08:34:[address] [facility] ACTIVATED PARTIAL 2022-06-12 08:34:00 Demond [facility] MAGNESIUM 2022-06-12 08:34:[address] [facility] BASIC METABOLIC PANEL 2022-06-12 08:34:00 Leslie Espitia [facility] (NA, K, CL, CO2, GLUCOSE, Medica l Branch BUN, CREATININE, CA) CBC WITH DIFF 2022-06-12 08:34:[address] [facility] PROTHROMBIN TIME / INR 2022-06-12 08:34:00 Mariia [facility] ACTIVATED PARTIAL 2022-06-12 08:34:00 Demond [facility] ACTIVATED PARTIAL 2022-06-12 02:29:00 Demond [facility] ACTIVATED PARTIAL 2022-06-12 02:29:00 Demond [facility] EXTRA TUBE LT. GREEN 2022-06-12 00:00:00 [facility] EXTRA TUBE LT. GREEN 2022-06-12 00:00:00 Mariia Cardona [facility] BLOOD CULTURE SCREEN 2022-06-11 19:48:00 Leslie Espitia [facility] BLOOD CULTURE SCREEN 2022-06-11 19:48:00 Leslie Espitia U [facility] BLOOD CULTURE SCREEN 2022-06-11 19:42:00 Leslie Espitia [facility] BLOOD CULTURE SCREEN 2022-06-11 19:42:00 Leslie Espitia [facility] TRANSESOPHAGEAL ECHO 2022-06-11 15:58:00 Siddharth Chicas Nando [facility] (MARGA) COMPLETE W/ DOPPLER [facility] AND COLOR TRANSESOPHAGEAL ECHO 2022-06-11 15:58:00 Siddharth Chicas [facility] (MARGA) COMPLETE W/ DOPPLER [facility] AND COLOR ACTIVATED PARTIAL 2022-06-11 14:52:00 Demond [facility] ACTIVATED PARTIAL 2022-06-11 14:52:00 Demond [facility] PROTHROMBIN TIME / INR 2022-06-11 08:57:00 Mariia [facility] BASIC METABOLIC PANEL 2022-06-11 08:57:00 Les Ortega [facility] (NA, K, CL, CO2, GLUCOSE, Medica l Branch BUN, CREATININE, CA) MAGNESIUM 2022-06-11 08:57:00 Les Ortega [facility] ACTIVATED PARTIAL 2022-06-11 08:57:00 Demond [facility] MAGNESIUM 2022-06-11 08:57:00 Les Ortega [facility] BASIC METABOLIC PANEL 2022-06-11 08:57:00 Les Ortega [facility] (NA, K, CL, CO2, GLUCOSE, Medica l Branch BUN, CREATININE, CA) PROTHROMBIN TIME / INR 2022-06-11 08:57:00 Mariia [facility]ona [facility] ACTIVATED PARTIAL 2022-06-11 08:57:00 Demond [facility] HB ECG ROUTINE & RHYTHM 2022-06-11 07:47:48 Kuldeep [facility] ACTIVATED PARTIAL 2022-06-10 20:19:00 Demond [facility] ACTIVATED PARTIAL 2022-06-10 20:19:00 Demond [facility] HB ECG ROUTINE & RHYTHM 2022-06-10 16:35:44 [facility] HB ECG ROUTINE & RHYTHM 2022-06-10 16:35:44 Thatikonda, Nithisha [facility] MAGNESIUM 2022-06-10 08:20:00 [facility]OLIC PANEL 2022-06-10 08:20:00 Omkar eda [facility] (NA, K, CL, CO2, GLUCOSE, Medica l Branch BUN, CREATININE, CA) CBC WITH DIFF 2022-06-10 08:20:00 Leslie Espitia [facility] PROTHROMBIN TIME / INR 2022-06-10 08:20:00 Leslie Espitia [facility] ACTIVATED PARTIAL 2022-06-10 08:20:00 Demond [facility] MAGNESIUM 2022-06-10 08:20:00 [facility]ar [facility] BASIC METABOLIC PANEL 2022-06-10 08:20:00 Omkar eda [facility] (NA, K, CL, CO2, GLUCOSE, Medica l Branch BUN, CREATININE, CA) CBC WITH DIFF 2022-06-10 08:20:00 Leslie Espitia [facility] PROTHROMBIN TIME / INR 2022-06-10 08:20:00 Omkar eda [facility] ACTIVATED PARTIAL 2022-06-10 08:20:00 Demond [facility] EKG-12 LEAD 2022-06-10 04:08:10 Rebeca [facility] ACTIVATED PARTIAL 2022-06-09 23:33:00 Demond, [facility] ACTIVATED PARTIAL 2022-06-09 23:33:00 Demond, [facility] ACTIVATED PARTIAL 2022-06-09 22:22:00 Demond, [facility] ACTIVATED PARTIAL 2022-06-09 22:22:00 Demond, [facility] BASIC METABOLIC PANEL 2022-06-09 20:19:[address] [facility] (NA, K, CL, CO2, GLUCOSE, Medica l Branch BUN, CREATININE, CA) BASIC METABOLIC PANEL 2022-06-09 20:19:[address] [facility] (NA, K, CL, CO2, GLUCOSE, Medica l Branch BUN, CREATININE, CA) HB ECG ROUTINE & RHYTHM 2022-06-09 16:45:40 Demond [facility] HB ECG ROUTINE & RHYTHM 2022-06-09 16:45:40 Demond [facility] MAGNESIUM 2022-06-09 10:03:00 Leslie Espitia [facility] BASIC METABOLIC PANEL 2022-06-09 10:03:00 Leslie Espitia [facility] (NA, K, CL, CO2, GLUCOSE, Medica l Branch BUN, CREATININE, CA) CBC WITH DIFF 2022-06-09 10:03:00 Leslie Espitia [facility] PROTHROMBIN TIME / INR 2022-06-09 10:03:00 Mariia Cardona Un [facility] MAGNESIUM 2022-06-09 10:03:00 Leslie Espitia [facility] BASIC METABOLIC PANEL 2022-06-09 10:03:00 Leslie Espitia [facility] (NA, K, CL, CO2, GLUCOSE, Medica l Branch BUN, CREATININE, CA) CBC WITH DIFF 2022-06-09 10:03:[address] [facility] PROTHROMBIN TIME / INR 2022-06-09 10:03:00 Mariia [facility] EKG-12 LEAD 2022-06-09 04:12:20 Mariia Cardona [facility] EKG-12 LEAD 2022-06-09 04:12:20 Mariia Cardona [facility] PROTHROMBIN TIME / INR 2022-06-08 17:35:00 Leslie Espitia Nilson [facility] PROTHROMBIN TIME / INR 2022-06-08 17:35:00 Omkar eda [facility] EKG-12 LEAD 2022-06-08 17:18:35 Kirk Ambrosioadriana [facility] EKG-12 LEAD 2022-06-08 17:18:35 Kirk Hemadriana [facility] MAGNESIUM 2022-06-08 10:46:[address] [facility] BASIC METABOLIC PANEL 2022-06-08 10:46:00 Leslie Espitia [facility] (NA, K, CL, CO2, GLUCOSE, Medica l Branch BUN, CREATININE, CA) CBC WITH DIFF 2022-06-08 10:46:[address] [facility] MAGNESIUM 2022-06-08 10:46:[address] [facility] BASIC METABOLIC PANEL 2022-06-08 10:46:00 Leslie Espitia [facility] (NA, K, CL, CO2, GLUCOSE, Medica l Branch BUN, CREATININE, CA) CBC WITH DIFF 2022-06-08 10:46:[address] [facility] EKG-12 LEAD 2022-06-08 03:55:51 Kirk Connell [facility] EKG-12 LEAD 2022-06-08 03:55:51 Kirk Connell [facility] TRANSTHORACIC ECHO (TTE) 2022-06-07 17:56:10 Kirk Connell [facility] TRANSTHORACIC ECHO (TTE) 2022-06-07 17:56:10 Kirk Connell [facility] HB ECG ROUTINE & RHYTHM 2022-06-07 15:36:46 Leslie Espitia [facility] HB ECG ROUTINE & RHYTHM 2022-06-07 15:36:46 Leslie Espitia [facility] URINE DRUG (LCMSMS) - 2022-06-07 15:01:00 Opal Yen [facility] COMPREHENSIVE DRUG PANEL [facility] URINE DRUG (LCMSMS) - 2022-06-07 15:01:00 Opal Yen Univer sity [facility] COMPREHENSIVE DRUG PANEL Medical Branch CBC WITH DIFF 2022-06-07 10:51:00 Opal Yen [facility] BASIC METABOLIC PANEL 2022-06-07 10:51:00 Farshad Opal Jared [facility]iver [facility] (NA, K, CL, CO2, GLUCOSE, Medica l Branch BUN, CREATININE, CA) IRON PANEL 2022-06-07 10:51:00 Farshad Opal [facility] BASIC METABOLIC PANEL 2022-06-07 10:51:00 Farshad Opal Jared Univer s[facility] (NA, K, CL, CO2, GLUCOSE, Medica l Branch BUN, CREATININE, CA) IRON PANEL 2022-06-07 10:51:00 Opal Yen [facility] CBC WITH DIFF 2022-06-07 10:51:00 Opal Yen [facility] BASIC METABOLIC PANEL 2022-06-07 02:29:00 Opal Yen Univer s[facility] (NA, K, CL, CO2, GLUCOSE, Medica l Branch BUN, CREATININE, CA) HEPATIC FUNCTION PANEL 2022-06-07 02:29:00 [facility] ([id number] (ALB,T.PRO,BILI Medical Branch T,BU/BC,ALT,AST,ALK PHOS) MAGNESIUM 2022-06-07 02:29:00 Opal Yen [facility] FOLATE 2022-06-07 02:29:00 Opal Yen [facility] MAGNESIUM 2022-06-07 02:29:00 Opal Yen [facility] FOLATE 2022-06-07 02:29:00 Farshad Opal [facility] HEPATIC FUNCTION PANEL 2022-06-07 02:29:00 Opal Yen [facility] ([id number]) (ALB,T.PRO,BILI Medical Branch T,BU/BC,ALT,AST,ALK PHOS) BASIC METABOLIC PANEL 2022-06-07 02:29:00 Opal Yen [facility]iver [facility] (NA, K, CL, CO2, GLUCOSE, Medica l Branch BUN, CREATININE, CA) HB ECG ROUTINE & RHYTHM 2022-06-07 00:50:00 [facility]al [facility] / INR 2022-06-07 00:33:00 FarshadOpal [facility] 2022-06-07 00:33:00 FarshadOpal [facility] CBC WITH DIFF 2022-06-07 00:33:00 FarshadOpal [facility] FERRITIN SERUM 2022-06-07 00:33:00 FarshadOpal [facility] VITAMIN B12, LEVEL 2022-06-07 00:33:00 Opal Yen [facility] FERRITIN SERUM 2022-06-07 00:33:00 FarshadOpal [facility] VITAMIN B12, LEVEL 2022-06-07 00:33:00 FarshadOpal [facility] CBC WITH DIFF 2022-06-07 00:33:00 FarshadOpal [facility] PROTHROMBIN TIME / INR 2022-06-07 00:33:00 FarshadOpal Jared Unive [facility] ACTIVATED PARTIAL 2022-06-07 00:33:00 Opal Yen [facility] PROTHROMBIN TIME / INR 2022-06-06 16:10:00 [place] Dan [facility] 2022-06-06 06:01:00 Doctor Unassigned, No Uni versity of [facility] CBC W/PLT COUNT & AUTO 2022-05-27 04:37:00 Katarina Cabrera [facility] PROTHROMBIN TIME/INR 2022-05-27 04:37:00 Katarina Cabrera [facility] MAGNESIUM 2022-05-27 04:37:00 Meaghan [place] [facility] BASIC METABOLIC PANEL 2022-05-27 04:37:00 Meaghan [place] [facility] CBC W/PLT COUNT & AUTO 2022-05-27 04:37:00 Katarina Cabrera [facility] APTT 2022-05-26 09:28:00 Shanelle Zuniga [facility] CBC W/PLT COUNT & AUTO 2022-05-26 06:27:00 [facility]/INR 2022-05-26 06:27:00 Rick Katarina [facility] MAGNESIUM 2022-05-26 06:27:00 RubénMeaghan [facility] BASIC METABOLIC PANEL 2022-05-26 06:27:00 Rubén Meaghan Ann Ricci [facility] APTT 2022-05-26 06:27:[address] [facility] CBC W/PLT COUNT & AUTO 2022-05-26 06:27:00 Rick, [facility] 2022-05-26 00:28:[address] [facility] APTT 2022-05-25 22:25:[address] [facility] APTT 2022-05-25 14:41:[address] [place] [facility] APTT 2022-05-25 12:13:[address] [facility] BASIC METABOLIC PANEL 2022-05-25 07:29:00 Robert, [facility] MAGNESIUM 2022-05-25 07:29:00 Robert, [facility] ECG 12-LEAD 2022-05-25 06:42:[facility] 2022-05-25 06:42:59 Unknown, Hl7 [facility] APTT 2022-05-25 05:57:[address] [facility] APTT 2022-05-25 04:47:[address] [facility] CBC W/PLT COUNT & AUTO 2022-05-25 03:20:00 Rick, [facility] PROTHROMBIN TIME/INR 2022-05-25 03:20:00 Rick, [facility] APTT 2022-05-25 03:20:00 Meaghan [place] Melba [facility] CBC W/PLT COUNT & AUTO 2022-05-25 03:20:00 Rick, [facility] APTT 2022-05-24 20:02:00 Efrain, [facility] APTT 2022-05-24 17:36:00 Efrain, [facility] APTT 2022-05-24 10:31:00 Rick, [facility] APTT 2022-05-24 03:41:00 [place], [facility] APTT 2022-05-24 01:14:00 [place], [facility] CBC W/PLT COUNT & AUTO 2022-05-24 01:14:00 Rick [facility] BASIC METABOLIC PANEL 2022-05-24 01:14:00 Rick, [facility] MAGNESIUM 2022-05-24 01:14:00 Rick, [facility] PHOSPHORUS 2022-05-24 01:14:00 Rick, [facility] PROTHROMBIN TIME/INR 2022-05-24 01:14:00 Rick, [facility] CBC W/PLT COUNT & AUTO 2022-05-24 01:14:00 Rick, [facility] APTT 2022-05-23 18:18:00 Pagan Franc [facility] APTT 2022-05-23 16:11:00 Pagan [facility] APTT 2022-05-23 08:24:00 Pagan [facility] CBC W/PLT COUNT & AUTO 2022-05-23 04:23:00 Rick [facility] BASIC METABOLIC PANEL 2022-05-23 04:23:00 Rick, [facility] MAGNESIUM 2022-05-23 04:23:00 Rick, [facility] PHOSPHORUS 2022-05-23 04:23:00 Rick, [facility] PROTHROMBIN TIME/INR 2022-05-23 04:23:00 Rick, [facility] APTT 2022-05-23 04:23:[address] [place] [facility] CBC W/PLT COUNT & AUTO 2022-05-23 04:23:00 Rick, [facility] APTT 2022-05-22 20:49:[address] [place] [facility] HEMOGLOBIN AND HEMATOCRIT 2022-05-22 17:54:00 Rick, [facility] APTT 2022-05-22 13:59:[address] [facility] CBC W/PLT COUNT & AUTO 2022-05-22 02:47:00 Rick, [facility] BASIC METABOLIC PANEL 2022-05-22 02:47:00 Rick, [facility] MAGNESIUM 2022-05-22 02:47:00 Rick, [facility] PHOSPHORUS 2022-05-22 02:47:00 Rick, [facility] PROTHROMBIN TIME/INR 2022-05-22 02:47:00 Rick, [facility] APTT 2022-05-22 02:47:00 SereniBertrand jimenes [facility] CBC W/PLT COUNT & AUTO 2022-05-22 02:47:00 Rick, [facility] PREPARE RBC 2022-05-21 23:54:00 AdhiVinayak [facility] HEMOGLOBIN AND HEMATOCRIT 2022-05-21 21:35:00 Rick, [facility] PROTHROMBIN TIME/INR 2022-05-21 14:45:00 Rick, [facility] APTT 2022-05-21 14:45:[address] [place] [facility] 2D ECHO W/ DOPPLER 2022-05-21 13:06:46 Vitaly Flores [facility] (CW/PW/COLOR) [facility] 2D ECHO W/ DOPPLER 2022-05-21 13:06:46 Vitaly Flores [facility] (CW/PW/COLOR) [facility] HEMOGLOBIN AND HEMATOCRIT 2022-05-21 12:50:[address] [facility] TSH/FREE T4 IF INDICATED 2022-05-21 12:50:00 [place] [facility] APTT 2022-05-21 08:34:[address] [facility] CBC W/PLT COUNT & AUTO 2022-05-21 05:00:00 Rick, [facility] BASIC METABOLIC PANEL 2022-05-21 05:00:00 Rick [facility] MAGNESIUM 2022-05-21 05:00:00 Rick [facility] PHOSPHORUS 2022-05-21 05:00:00 Rick [facility] CBC W/PLT COUNT & AUTO 2022-05-21 05:00:00 Rick [facility] PROTHROMBIN TIME/INR 2022-05-21 01:15:00 Rick, [facility] APTT 2022-05-21 01:15:00 Efrain, [facility] HEMOGLOBIN AND HEMATOCRIT 2022-05-20 20:25:00 Rick, [facility] PROTHROMBIN TIME/INR 2022-05-20 17:07:00 Rick, [facility] APTT 2022-05-20 17:07:00 Lynnette [facility] HEMOGLOBIN AND HEMATOCRIT 2022-05-20 13:03:[address] [facility] APTT 2022-05-20 13:02:00 Lynnette [facility] TRANSFUSE LEUKO-REDUCED 2022-05-20 08:38:00 Damir Joyce [facility] RED BLOOD CELLS [facility] PREPARE RBC 2022-05-20 08:19:00 AdhVinayak foy Nathan [facility] APTT 2022-05-20 05:03:[address] [facility] CBC W/PLT COUNT & AUTO 2022-05-20 03:36:00 Rick [facility] BASIC METABOLIC PANEL 2022-05-20 03:36:00 Rick, [facility] MAGNESIUM 2022-05-20 03:36:00 Rick, [facility] PHOSPHORUS 2022-05-20 03:36:00 Rick, [facility] PROTHROMBIN TIME/INR 2022-05-20 03:36:00 Rick, [facility] CBC W/PLT COUNT & AUTO 2022-05-20 03:36:00 Rick, [facility] APTT 2022-05-19 22:59:[address] [facility] HEMOGLOBIN AND HEMATOCRIT 2022-05-19 21:17:[address] [facility] PROTHROMBIN TIME/INR 2022-05-19 17:05:00 Rick, [facility] [facility] 2022-05-19 17:05:[address] [facility] HEMOGLOBIN AND HEMATOCRIT 2022-05-19 12:11:00 Rick, [facility] PROTHROMBIN TIME/INR 2022-05-19 12:11:00 Efrain [facility] ECG 12-LEAD 2022-05-19 11:39:33 Vitaly Flores [facility] ECG 12-LEAD 2022-05-19 11:39:33 Unknown, Hl7 Doctor [facility] POCT-GLUCOSE METER 2022-05-19 05:28:00 Shadi Church [facility] CBC W/PLT COUNT & AUTO 2022-05-19 03:08:00 Rick, [facility] CBC W/PLT COUNT & AUTO 2022-05-19 03:08:00 Rick, [facility] BASIC METABOLIC PANEL 2022-05-19 03:07:00 Rick, [facility] MAGNESIUM 2022-05-19 03:07:00 Rick, [facility] PHOSPHORUS 2022-05-19 03:07:00 Rick, [facility] PROTHROMBIN TIME/INR 2022-05-19 03:07:00 Rick, [facility] POCT-GLUCOSE METER 2022-05-18 23:02:00 Adhdanii [facility] ECG 12-LEAD 2022-05-18 21:08:01 Bandmarizol [facility] ECG 12-LEAD 2022-05-18 21:08:01 Unknown, Hl7 [facility] BUN AND CREATININE 2022-05-18 20:38:00 [facility] W/RATIO [place] POTASSIUM 2022-05-18 20:38:00 [facility] MAGNESIUM 2022-05-18 20:38:00 [facility] HEMOGLOBIN AND HEMATOCRIT 2022-05-18 20:01:00 [facility] POCT-GLUCOSE METER 2022-05-18 18:56:00 Adhdanii [facility] CTA ABDOMEN & PELVIS 2022-05-18 17:42:00 Rick [facility] URINALYSIS W/ REFLEX 2022-05-18 15:23:00 Rick [facility] URINE CULTURE [facility] PROTHROMBIN TIME/INR 2022-05-18 15:23:00 Rick [facility] HIGH SENSITIVITY TROPONIN 2022-05-18 15:23:00 [facility] URINE CULTURE 2022-05-18 15:23:00 Rick, [facility] CBC (HEMOGRAM ONLY) 2022-05-18 13:05:00 Rick, [facility] CALCIUM, IONIZED 2022-05-18 13:05:00 Rick, [facility] POCT-GLUCOSE METER 2022-05-18 12:55:00 Sean Graham [facility] ABORH, MANUAL 2022-05-18 11:55:00 Floridalma Monsalve [facility] TYPE AND SCREEN, 2022-05-18 11:02:00 Rick, [facility] COMPREHENSIVE METABOLIC 2022-05-18 11:01:00 Rick, [facility] PANEL [facility] MAGNESIUM 2022-05-18 11:01:00 Rick, [facility] PHOSPHORUS 2022-05-18 11:01:00 Rick, [facility] LACTIC ACID, VENOUS 2022-05-18 11:01:00 Rick, [facility] LIPASE 2022-05-18 11:01:00 Rick, [facility] B-TYPE NATRIURETIC FACTOR 2022-05-18 11:01:00 Rick, [facility] (BNP) [facility] PT/APTT 2022-05-18 11:00:00 Rick, [facility] FIBRINOGEN 2022-05-18 11:00:00 Rick, [facility] ECG 12-LEAD 2022-05-18 10:34:14 Rick, [facility] ECG 12-LEAD 2022-05-18 10:34:14 Unknown, Hl7 Doctor [facility] HB ECG ROUTINE & RHYTHM 2022-05-10 17:51:31 Wayne Rabago [facility] PROTHROMBIN TIME / INR 2022-05-09 16:24:00 [place] Dan [facility] CONSENT/REFUSAL FOR 2022-05-09 16:13:00 Doctor [facility], [facility] Name Medical Branch ASSIGNMENT OF BENEFITS 2022-05-09 16:12:36 Doctor Unassigned, No [facility] Name Medical Branch ASSIGNMENT OF BENEFITS 2022-05-09 16:12:36 Doctor Unassigned, No [facility] Medical Branch PROTHROMBIN TIME / INR 2022-04-11 15:46:00 [place] [facility] CONSENT/REFUSAL FOR 2022-04-11 15:36:05 Doctor Un[facility]igned, [place] [facility] [place] [facility] Name Medical Branch ASSIGNMENT OF BENEFITS 2022-04-11 15:35:52 Doctor Unassigned, No [facility] Medical Branch ASSIGNMENT OF BENEFITS 2022-04-11 15:35:52 Doctor Unassigned, No [facility] MEDICATION CORRESPONDENCE 2022-03-18 06:01:00 Doctor Unassigned, No [facility] PROTHROMBIN TIME / INR 2022-03-14 15:29:00 [place] [facility] CONSENT/REFUSAL FOR 2022-03-14 15:15:12 Doctor Unassigned, No [facility] [place] [facility] TREATMENT [facility] Medical Branch ASSIGNMENT OF BENEFITS 2022-03-14 15:15:00 Doctor Unassigned, No [facility] Medical Branch ASSIGNMENT OF BENEFITS 2022-03-14 15:15:00 Doctor Unassigned, No [facility] CONSENT/REFUSAL FOR 2022-02-28 18:42:52 Doctor Unassigned, No [facility] [place] [facility] TREATMENT [facility] Medical Branch CONSENT/REFUSAL FOR 2022-02-14 14:32:17 Doctor Unassigned, No [facility] [place] [facility]NOS[facility] TREATMENT [facility] Medical Branch ASSIGNMENT OF BENEFITS 2022-02-14 14:32:04 Doctor Unassigned, No [facility] Medical Branch ASSIGNMENT OF BENEFITS 2021-12-14 17:04:14 Doctor Unassigned, No [facility] HOSPITAL ADMISSION 2021-11-23 05:01:00 Doctor Unassigned, No [facility] Medical [place] Plan of Care Planned Activity Planned Date [facility] 2) [code = [facility] VACCINES (1 of 2)] Future Scheduled 2003 SHINGLES VACCINES ([address] [facility] 00:00:00 2) [facility] Future Scheduled [facility] Future [...] breast Medical C enter (procedure) [code = 210376579] Future Scheduled 1953 CT Colonography (combo) [facility] 00:00:00 [code = CT Colonography [facility] (combo)] Future Scheduled 1953 Screening for malignant [facility] Test 00:00:00 neoplasm of colon Medical Ce nter (procedure) [code = 488128692] Future Scheduled 1953 Screening for malignant [facility] Test 00:00:00 neoplasm of colon Medical Ce nter (procedure) [code = 547702262] Future Scheduled 1953 DXA SCAN [code = DXA [facility] 00:00:00 SCAN] [facility] Future Scheduled 1953 Screening for malignant [facility] Test 00:00:00 neoplasm of colon Medical Ce nter (procedure) [code = 842556430] Future Scheduled 1953 Screening for malignant [facility] Test 00:00:00 neoplasm of colon Medical Ce nter (procedure) [code = 966146775] Future Scheduled 1953 Sigmoidoscopy [facility] Future Scheduled 1953 Screening for malignant [facility] 00:00:00 neoplasm of breast Medical C enter (procedure) [code = 051044463] Future Scheduled 1953 CT Colonography (combo) [facility] Test 00:00:00 [code = CT Colonography [facility] (combo)] Future Scheduled 1953 Screening for malignant [facility] 00:00:00 neoplasm of colon Medical Ce nter (procedure) [code = 828093705] Future Scheduled 1953 Screening for malignant [facility] 00:00:00 neoplasm of colon Medical Ce nter (procedure) [code = 871079243] Future Scheduled 1953 DXA SCAN [code = DXA [facility] 00:00:00 SCAN] [facility] Future Scheduled 1953 Screening for malignant [facility] 00:00:00 neoplasm of colon Medical Ce nter (procedure) [code = 076212687] Future Scheduled 1953 Screening for malignant [facility] 00:00:00 neoplasm of colon Medical Ce nter (procedure) [code = 265820458] Future Scheduled 1953 Sigmoidoscopy [facility]code = [facility]] [facility] Future Scheduled 1953 Screening for malignant [facility] Test 00:00:00 neoplasm of breast Medical C enter (procedure) [code = 121170348] Future Scheduled 1953 CT Colonography (combo) [facility] Test 00:00:00 [code = CT Colonography [facility] (combo)] Future Scheduled 1953 Screening for malignant [facility] Test 00:00:00 neoplasm of colon Medical Ce nter (procedure) [code = 433970853] Future Scheduled 1953 Screening for malignant [facility] Test 00:00:00 neoplasm of colon Medical Ce nter (procedure) [code = 008376110] Future Scheduled 1953 DXA SCAN [code = DXA [facility] 00:00:00 SCAN] [facility] Future Scheduled 1953 Screening for malignant [facility] 00:00:00 neoplasm of colon Medical Ce nter (procedure) [code = 474348477] Future Scheduled 1953 Screening for malignant [facility] 00:00:00 neoplasm of colon Medical Ce nter (procedure) [code = 670555231] Future Scheduled 1953 Sigmoidoscopy [facility]code = [facility] Screening for malignant [facility] 00:00:00 neoplasm of breast Medical C enter (procedure) [code = 529233375] Future Scheduled 1953 CT Colonography (combo) [facility] 00:00:00 [code = CT Colonography [facility] (combo)] Future Scheduled 1953 Screening for malignant [facility] 00:00:00 neoplasm of colon Medical Ce nter (procedure) [code = 552075485] Future Scheduled 1953 Screening for malignant [facility] 00:00:00 neoplasm of colon Medical Ce nter (procedure) [code = 696111116] Future Scheduled 1953 DXA SCAN [code = DXA [facility] 00:00:00 SCAN] [facility] Future Scheduled 1953 Screening for malignant [facility] 00:00:00 neoplasm of colon Medical Ce nter (procedure) [code = 207907732] Future Scheduled 1953 Screening for malignant [facility] 00:00:00 neoplasm of colon Medical Ce nter (procedure) [code = 527717017] Future Scheduled 1953 Sigmoidoscopy [facility]code [facility]oscopy] [facility] Future Scheduled 1953 Screening for malignant [facility] 00:00:00 neoplasm of breast Medical C enter (procedure) [code = 508503985] Future Scheduled 1953 CT Colonography (combo) [facility] 00:00:00 [code = CT Colonography [facility] (combo)] Future Scheduled 1953 Screening for malignant [facility] 00:00:00 neoplasm of colon Medical Ce nter (procedure) [code = 447711054] Future Scheduled 1953 Screening for malignant [facility] 00:00:00 neoplasm of colon Medical Ce nter (procedure) [code = 339758074] Future Scheduled 1953 DXA SCAN [code = DXA [facility] 00:00:00 SCAN] [facility] Future Scheduled 1953 Screening for malignant [facility] 00:00:00 neoplasm of colon Medical Ce nter (procedure) [code = 913409578] Future Scheduled 1953 Screening for malignant [facility] 00:00:00 neoplasm of colon Medical Ce nter (procedure) [code = 503567732] Future Scheduled 1953 Sigmoidoscopy [facility]code = [facility]] [facility] 1953 Screening for malignant [facility] 00:00:00 neoplasm of breast Medical C enter (procedure) [code = 365147583] Future Scheduled 1953 CT Colonography (combo) [facility] 00:00:00 [code = CT Colonography [facility] (combo)] Future Scheduled 1953 Screening for malignant [facility] 00:00:00 neoplasm of colon Medical Ce nter (procedure) [code = 193542320] Future Scheduled 1953 Screening for malignant [facility] 00:00:00 neoplasm of colon Medical Ce nter (procedure) [code = 264735620] Future Scheduled 1953 DXA SCAN [code = DXA [facility] 00:00:00 SCAN] [facility] Future Scheduled 1953 Screening for malignant [facility] 00:00:00 neoplasm of colon Medical Ce nter (procedure) [code = 791699101] Future Scheduled 1953 Screening for malignant [facility] 00:00:00 neoplasm of colon Medical Ce nter (procedure) [code = 793979973] Future Scheduled 1953 Sigmoidoscopy [code = [facility] 00:[facility]oscopy] [facility] r Future Scheduled 1953 Screening for malignant [facility] 00:00:00 neoplasm of breast Medical C enter (procedure) [code = 733502613] Future Scheduled 1953 CT Colonography (combo) [facility] 00:00:00 [code = CT Colonography [facility] (combo)] Future Scheduled 1953 Screening for malignant [facility] 00:00:00 neoplasm of colon Medical Ce nter (procedure) [code = 202510637] Future Scheduled 1953 Screening for malignant [facility] 00:00:00 neoplasm of colon Medical Ce nter (procedure) [code = 174899029] Future Scheduled 1953 DXA SCAN [code = DXA [facility] 00:00:00 SCAN] [facility] Future Scheduled 1953 Screening for malignant [facility] 00:00:00 neoplasm of colon Medical Ce nter (procedure) [code = 200546038] Future Scheduled 1953 Screening for malignant [facility] 00:00:00 neoplasm of colon Medical Ce nter (procedure) [code = 098850238] Future Scheduled 1953 Sigmoidoscopy [code = [facility] 00:[facility]] [facility] Future Scheduled 1953 Screening for malignant [facility] 00:00:00 neoplasm of breast Medical C enter (procedure) [code = 789819142] Future Scheduled 1953 CT Colonography (combo) [facility] 00:00:00 [code = CT Colonography [facility] (combo)] Future Scheduled 1953 Screening for malignant [facility] 00:00:00 neoplasm of colon Medical Ce nter (procedure) [code = 985912013] Future Scheduled 1953 Screening for malignant [facility] 00:00:00 neoplasm of colon Medical Ce nter (procedure) [code = 651030407] Future Scheduled 1953 DXA SCAN [code = DXA [facility] 00:00:00 SCAN] [facility] Future Scheduled 1953 Screening for malignant [facility] 00:00:00 neoplasm of colon Medical Ce nter (procedure) [code = 398516512] Future Scheduled 1953 Screening for malignant [facility] 00:00:00 neoplasm of colon Medical Ce nter (procedure) [code = 068554848] Future Scheduled 1953 Sigmoidoscopy [code = [facility]] [facility] 1953 Screening for malignant [facility] 00:00:00 neoplasm of breast Medical C enter (procedure) [code = 508966878] Future Scheduled 1953 CT Colonography (combo) [facility] 00:00:00 [code = CT Colonography [facility] (combo)] Future Scheduled 1953 Screening for malignant [facility] 00:00:00 neoplasm of colon Medical Ce nter (procedure) [code = 294404794] Future Scheduled 1953 Screening for malignant [facility] 00:00:00 neoplasm of colon Medical Ce nter (procedure) [code = 406144676] Future Scheduled 1953 DXA SCAN [code = DXA [facility] 00:00:00 SCAN] [facility] Future Scheduled 1953 Screening for malignant [facility] 00:00:00 neoplasm of colon Medical Ce nter (procedure) [code = 766647098] Future Scheduled 1953 Screening for malignant [facility] 00:00:00 neoplasm of colon Medical Ce nter (procedure) [code = 102583837] Future Scheduled 1953 Sigmoidoscopy [code = [facility] 00:[facility] S[facility]oscopy] [facility] Future Scheduled 1953 Screening for malignant [facility] 00:00:00 neoplasm of breast Medical C enter (procedure) [code = 466457609] Future Scheduled 1953 CT Colonography (combo) [facility] 00:00:00 [code = CT Colonography [facility] (combo)] Future Scheduled 1953 Screening for malignant [facility] 00:00:00 neoplasm of colon Medical Ce nter (procedure) [code = 656521723] Future Scheduled 1953 Screening for malignant [facility] 00:00:00 neoplasm of colon Medical Ce nter (procedure) [code = 824352202] Future Scheduled 1953 DXA SCAN [code = DXA [facility] 00:00:00 SCAN] [facility] Future Scheduled 1953 Screening for malignant [facility] 00:00:00 neoplasm of colon Medical Ce nter (procedure) [code = 104014353] Future Scheduled 1953 Screening for malignant [facility] 00:00:00 neoplasm of colon Medical Ce nter (procedure) [code = 760606069] Future Scheduled 1953 Sigmoidoscopy [code = [facility] 00:00:00 S[facility]oscopy] [facility] Future Scheduled 1953 Screening for malignant [facility] 00:00:00 neoplasm of breast Medical C enter (procedure) [code = 177083956] Future Scheduled 1953 CT Colonography (combo) [facility] 00:00:00 [code = CT Colonography [facility] (combo)] Future Scheduled 1953 Screening for malignant [facility] 00:00:00 neoplasm of colon Medical Ce nter (procedure) [code = 979194239] Future Scheduled 1953 Screening for malignant [facility] 00:00:00 neoplasm of colon Medical Ce nter (procedure) [code = 908832930] Future Scheduled 1953 DXA SCAN [code = DXA [facility] 00:00:00 SCAN] [facility] Future Scheduled 1953 Screening for malignant [facility] 00:00:00 neoplasm of colon Medical Ce nter (procedure) [code = 971133754] Future Scheduled 1953 Screening for malignant [facility] 00:00:00 neoplasm of colon Medical Ce nter (procedure) [code = 455225706] Future Scheduled 1953 Sigmoidoscopy [code = [facility] 00:00:00 S[facility]oscopy] [facility] Future Scheduled 1953 Screening for malignant [facility] 00:00:00 neoplasm of breast Medical C enter (procedure) [code = 657964170] Future Scheduled 1953 CT Colonography (combo) [facility] 00:00:00 [code = CT Colonography [facility] (combo)] Future Scheduled 1953 Screening for malignant [facility] 00:00:00 neoplasm of colon Medical Ce nter (procedure) [code = 850108164] Future Scheduled 1953 Screening for malignant [facility] 00:00:00 neoplasm of colon Medical Ce nter (procedure) [code = 083364338] Future Scheduled 1953 DXA SCAN [code = DXA [facility] 00:00:00 SCAN] [facility] Future Scheduled 1953 Screening for malignant [facility] 00:00:00 neoplasm of colon Medical Ce nter (procedure) [code = 226875559] Future Scheduled 1953 Screening for malignant [facility] 00:00:00 neoplasm of colon Medical Ce nter (procedure) [code = 929471418] Future Scheduled 1953 Sigmoidoscopy [code = [facility]] [facility] Future Scheduled 1953 Screening for malignant [facility] 00:00:00 neoplasm of breast Medical C enter (procedure) [code = 554103524] Future Scheduled 1953 CT Colonography (combo) [facility] 00:00:00 [code = CT Colonography [facility] (combo)] Future Scheduled 1953 Screening for malignant [facility] 00:00:00 neoplasm of colon Medical Ce nter (procedure) [code = 849836476] Future Scheduled 1953 Screening for malignant [facility] 00:00:00 neoplasm of colon Medical Ce nter (procedure) [code = 494703406] Future Scheduled 1953 DXA SCAN [code = DXA [facility] 00:00:00 SCAN] [facility] Future Scheduled 1953 Screening for malignant [facility] 00:00:00 neoplasm of colon Medical Ce nter (procedure) [code = 244960242] Future Scheduled 1953 Screening for malignant [facility] 00:00:00 neoplasm of colon Medical Ce nter (procedure) [code = 656185212] Future Scheduled 1953 Sigmoidoscopy [code = [facility] 00:[facility]] [facility] Cent[facility] Future Scheduled 1953 Screening for malignant [facility] 00:00:00 neoplasm of breast Medical C enter (procedure) [code = 073207981] Future Scheduled 1953 CT Colonography (combo) [facility] 00:00:00 [code = CT Colonography [facility] (combo)] Future Scheduled 1953 Screening for malignant [facility] 00:00:00 neoplasm of colon Medical Ce nter (procedure) [code = 606925667] Future Scheduled 1953 Screening for malignant [facility] 00:00:00 neoplasm of colon Medical Ce nter (procedure) [code = 255228262] Future Scheduled 1953 DXA SCAN [code = DXA [facility] 00:00:00 SCAN] [facility] Future Scheduled 1953 Screening for malignant [facility] 00:00:00 neoplasm of colon Medical Ce nter (procedure) [code = 215327757] Future Scheduled 1953 Screening for malignant [facility] 00:00:00 neoplasm of colon Medical Ce nter (procedure) [code = 911808160] Future Scheduled 1953 Sigmoidoscopy [code = [facility] 00:00:[facility] S[facility]oscopy] [facility] Future Scheduled 1953 Screening for malignant [facility] 00:00:00 neoplasm of breast Medical C enter (procedure) [code = 484507415] Future Scheduled 1953 CT Colonography (combo) [facility] 00:00:00 [code = CT Colonography [facility] (combo)] Future Scheduled 1953 Screening for malignant [facility] 00:00:00 neoplasm of colon Medical Ce nter (procedure) [code = 449134238] Future Scheduled 1953 Screening for malignant [facility] 00:00:00 neoplasm of colon Medical Ce nter (procedure) [code = 480010025] Future Scheduled 1953 DXA SCAN [code = DXA [facility] 00:00:00 SCAN] [facility] Future Scheduled 1953 Screening for malignant [facility] 00:00:00 neoplasm of colon Medical Ce nter (procedure) [code = 573641548] Future Scheduled 1953 Screening for malignant [facility] 00:00:00 neoplasm of colon Medical Ce nter (procedure) [code = 995556985] Future Scheduled 1953 Sigmoidoscopy [code = [facility]:00:[facility] 1953 Screening for malignant [facility] 00:00:00 neoplasm of breast Medical C enter (procedure) [code = 086395405] Future Scheduled 1953 CT Colonography (combo) [facility] 00:00:00 [code = CT Colonography [facility] (combo)] Future Scheduled 1953 Screening for malignant [facility] 00:00:00 neoplasm of colon Medical Ce nter (procedure) [code = 627294098] Future Scheduled 1953 Screening for malignant [facility] 00:00:00 neoplasm of colon Medical Ce nter (procedure) [code = 690699942] Future Scheduled 1953 DXA SCAN [code = DXA [facility] 00:00:00 SCAN] [facility] Future Scheduled 1953 Screening for malignant [facility] 00:00:00 neoplasm of colon Medical Ce nter (procedure) [code = 782021161] Future Scheduled 1953 Screening for malignant [facility] 00:00:00 neoplasm of colon Medical Ce nter (procedure) [code = 645229756] Future Scheduled 1953 Sigmoidoscopy [code [facility]] [facility] Encounters Start End Encounter Admission Attending Care Care Encounter Source Date/Time Date/Time Type Type Clinicians Facility Department ID 2023-02-19 Outpatient IBRAHIM, [facility] [id number] Common 09:55:00 DANIEL [id number] [facility] 2022-09-13 Outpatient IBRAHIM, [facility] [id number] Common 13:24:02 DANIEL [id number] [facility] 2022-08-16 Outpatient IBRAHIM, [facility] [id number] Common 12:00:01 DANIEL [id number] [facility] 2022-08-15 Outpatient IBRAHIM, [facility] [id number] Common 15:12:01 DANIEL [id number] [facility] 2022-08-14 [facility] [id number] Common 08:50:01 Saurabh [id number] [facility] 2022-06-05 Inpatient R MARIIA CARDONA [facility] [id number] Univers 07:56:00 MARIIA CARDONA ity [facility] 2021-11-20 Inpatient R REBECA HOLCOMB [facility] [id number] Univers 15:24:28 REBECA HOLCOMB i ty [facility] 2021-09-21 Outpatient Dobson, [facility] [id number] Common 10:27:03 Saurabh [id number] [facility] 2023-06-20 2023-06-20 Outpatient R GEETA KOROMA [facility] [id number] Univers 14:00:00 14:00:00 GEETA KOROMA ity [facility] 2023-02-28 2023-02-28 [facility] [id number] Univers 11:20:00 11:20:00 CATRINAJUAN ana o [facility] 2023-02-13 2023-02-13 [facility] 1.2.840.114 [id number] Univers 13:40:00 13:50:00 Visit [place] ARANDA 350.1.13.10 ity [facility] [place] [id number] [place] [id number] [facility] 2023-02-13 2023-02-13 [facility] [id number] Univers 13:40:00 13:40:00 ROGERZAHEER ana o [facility] 2023-02-13 2023-02-13 [facility]phone [facility] 1.2.537.062 [id number] Univers 00:00:00 00:00:00 [place] ARANDA 350.1.13.10 ity [facility] [place] [id number] [address] 2023-02-12 2023-02-12 Outpatient R [facility] [id number] Univers 10:30:00 10:30:00 ity [facility] 2023-02-08 2023-02-08 [facility]ill [facility] 1.2.840.114 [id number] Univers 00:00:00 00:00:00 [place] ARANDA 350.1.13.10 ity [facility] [place] [id number] Ut dical NAL 059 [facility] 2023-02-07 2023-02-07 Outpatient R GEETA KOROMA [facility] [id number] Univers 15:00:00 15:00:00 GEETA KOROMA ity [facility] 2023-02-07 2023-02-07 Iron Miner Andre Osei Lab Main [facility] 1.2.8 40.114 [id number] Univers 14:00:00 14:15:00 Visit Geeta Koroma ROIS 350.1 .13.10 ity [facility] 4.2.[place].2.[place] [id number] Ut dical NAL 353 [facility] 2023-02-07 2023-02-07 Outpatient R GEETA KOROMA [facility] [id number] Univers 14:00:00 14:00:00 [facility] [place] [facility] 2023-[facility]-05 2023-02-05 Transition DONNY GamezYandy 1.2.840.114 [id number] Univers 00:00:00 00:00:00 of Care Georgie SAMANIEGO 350.1.13.10 it y of [place].2.[place] [id number] [facility] [address] 2023-02-02 2023-02-03 Outpatient X AMADEO [facility] BERENICE [id number] Univers 12:13:00 14:11:00 RAO perez [facility] 2023-02-02 2023-02-03 Emergency Mazin Merrill [facility] 1.2.840. 114 [id number] Univers 12:13:00 14:11:00 Rao Childs 350.1.13.10 ity of [place] [id number] [facility] 0[address] 2023-02-01 2023-02-01 Telephone Sy [facility] 1.2.212.137 [id number] Univers 00:00:00 00:00:00 [place] ARANDA 350.1.13.10 ity of [place] 4.2.7.2.[place] [id number] Ut dical NAL 059 [facility] 2023-01-31 2023-01-31 Office [facility] 1.2.840.114 [id number] Univers 13:40:00 13:50:00 Visit Catrinajuan ARANDA 350.1.13.10 ity of [place] 4.[place].7.2.[place] [id number] Ut dical NAL 059 [facility] 2023-01-31 2023-01-31 Iron Miner Farnaz, Adc Lab Main [facility] 1.2.8 40.114 [id number] Univers 12:15:00 12:30:00 Visit [place] Dan 350.1.13.10 ity of [place] 4.2.7.2.686 [place] [id number] Ut dical NAL 353 [facility] 2023-01-31 2023-01-31 [facility] [id number] Univers 12:15:00 12:15:00 [place] scotty o f [facility] 2023-01-25 2023-01-25 Telephone [facility] 1.2.862.586 [id number] Univers 00:00:00 00:00:00 [place] ARANDA 350.1.13.10 ity of [place] 4.2.7.2.[place] [id number] Ut dical NAL [address] [place] [address] 2023-01-16 2023-01-16 Telephone [facility] 1.2.192.405 [id number] Univers 00:00:00 00:00:00 Catrinamerzaheer KENANJAVIER 350.1.13.10 ity of [place] 4.2.7.2.[place] [id number] Ut dical NAL 059 [facility] 2023-01-14 2023-01-14 Transition ALESIA Mulligan 1.2.840.114 [id number] Univers 00:00:00 00:00:00 of Care Jeremy SAMANIEGO 350.1.13.10 ity of [place].2.7.2.[place] [id number] [facility] [address] 2023-01-06 2023-01-11 Inpatient X MARIIA CARDONA [facility] [id number] Univers 17:42:00 18:20:00 AL HEMMARIIA SIMS ity of [facility] 2023-01-06 2023-01-11 [facility] Babita Iglesias 1.2.840. 114 [id number] [facility] 17:42:00 18:20:00 Encounter Rao Childs 350.1.13.[address] [facility] 4.2.7.2.686 Alicia Malave [id number] [address] 2023-01-08 2023-01-08 Telephone [facility] 1.2.691.384 [id number] Univers 00:00:00 00:00:00 [place] ARANDA 350.1.13.10 it[place] 4.2.7.2.[place] [id number] Ut dical NAL 059 [facility] 2023-01-04 2023-01-04 Office [facility] 1.2.840.114 [id number] Univers 09:00:00 10:13:03 Visit [place] ARANDA 350.1.13.10 ity of [place] 4.2.7.2.[place] [id number] Ut dical NAL 059 [facility] 2023-01-04 2023-01-04 Iron Miner Andre Osei Lab Main [facility] 1.2.8 40.114 [id number] Univers 09:15:00 09:30:00 Visit [place] Dan 350.1.13.10 ity of [place] 4.2.7.2.[place] [id number] Ut dical NAL 353 [facility] 2023-01-04 2023-01-04 [facility] [id number] Univers 09:15:00 09:15:00 [place] perez o f [facility] 2023-01-04 2023-01-04 Telephone [facility] 1.2.156.891 [id number] Univers 00:00:00 00:00:00 Rogerzaheer ROSI 350.1.13.10 ity of [place] 4.2.7.2.[place] [id number] [address] 2022-12-20 2022-12-20 Office Woodrow [facility] 1.2.840.114 [id number] Univers 16:00:00 16:00:00 Visit Robyarlene ARANDA 350.1.13.10 ity of yoj[place] 4.2.7.2.[place] [id number] [address] 2022-12-20 2022-12-20 Outpatient R GEETA KOROMA [facility] [id number] Univers 16:00:00 15:54:49 GEETA KOROMA ity [facility] 2022-12-20 2022-12-20 Orders Doctor JOHANN 1.2.840.114 [id number] Univers 00:00:00 00:00:00 Only Unassigned, MIKE 350.1.13.10 ity of [place] [facility] 4.2.7.2.686 Babak as [id number] [address] 2022-12-19 2022-12-19 [facility]ill [facility] 1.2.840.114 [id number] Univers 00:00:00 00:00:00 [place] ARANDA 350.1.13.10 ity of [place] 4.2.7.2.[place] [id number] [address] 2022-12-18 2022-12-18 Outpatient [facility] [id number] Univers 14:00:00 15:11:16 [place] ity o f [facility] 2022-12-18 2022-12-18 [facility] 1.2.840.114 [id number] Univers 14:00:00 14:10:00 Visit [place] ARANDA 350.1.13.10 ity of [place].2.[place].2.[place] [id number] Me dical NAL 059 [facility] 2022-12-18 2022-12-18 Telephone [facility] 1.2.096.264 [id number] Univers 00:00:00 00:00:00 Catrinamerzaheer GRAYSONJAVIER 350.1.13.10 ity of [facility] 4.2.7.2.[place] [id number] Ut dic[address] 2022-12-06 2022-12-06 Office [facility] 1.2.840.114 [id number] Univers 09:00:00 09:00:00 Visit Catrinamerzaheer GRAYSONJAVIER 350.1.13.10 ity [facility] 4.2.7.2.[place] [id number] [address] 2022-12-06 2022-12-06 Outpatient R [facility] [id number] Univers 09:00:00 08:31:45 [place] perez o [facility] 2022-12-06 2022-12-06 Orders Doctor JOHANN 1.2.840.114 [id number] Univers 00:00:00 00:00:00 Only Unassigned, MIKE 350.1.13.10 ity of [place] [facility] 4.2.7.2.686 Babak as [id number] [address] 2022-12-05 2022-12-05 Telephone [facility] 1.2.026.433 [id number] Univers 00:00:00 00:00:00 Catrinamerzaheer GRAYSONJAVIER 350.1.13.10 ity of [place] 4.2.7.2.[place] [id number] [address] 2022-11-30 2022-11-30 Outpatient R [facility] [id number] Univers 13:30:00 15:31:28 [place] perez o f [facility] 2022-11-30 2022-11-30 Office [facility] 1.2.840.114 [id number] Univers 13:30:00 15:31:28 Visit [place] ARANDA 350.1.13.10 ity of [place] 4.2.7.2.[place] [id number] Ut dical NAL 059 [facility] 2022-11-30 2022-11-30 Telephone [facility] 1.2.975.227 [id number] Univers 00:00:00 00:00:00 Qiangjun [place] 350.1.13.10 ity of [place] 4.2.7.2.[place] [id number] Ut dicut NAL [address] [place] [address] 2022-11-25 2022-11-25 [facility] 1.2.512.102 [id number] [id number] Univers 00:00:00 00:00:00 Qiangjun [place] 350.1.13.10 ity of [place] 4.2.7.2.[place] [id number] Ut dicut NAL 9 [facility] 2022-11-24 2022-11-24 Orders Doctor JOHANN 1.2.840.114 [id number] Univers 00:00:00 00:00:00 Only Unassigned, MIKE 350.1.13.10 ity of [place] [facility] 4.2.7.2.686 Babak as [id number] [address] 2022-11-22 2022-11-22 [facility] 1.2.387.416 [id number] [id number] Univers 00:00:00 00:00:00 Qiamerjun [place] 350.1.13.10 ity [facility] 4.2.7.2.[place] [id number] Ut dical NAL 9 [facility] 2022-11-12 2022-11-12 [facility] 1.2.274.911 [id number] [id number] Univers 00:00:00 00:00:00 Qiangjun [place] 350.1.13.10 ity of [facility] 4.2.7.2.[place] [id number] Ut dical NAL 059 [facility] 2022-11-09 2022-11-09 Orders Doctor JOHANN 1.2.840.114 [id number] Univers 00:00:00 00:00:00 Only Unassigned, MIKE 350.1.13.10 ity of [place] [facility] 4.2.7.2.686 Babak as [id number] [address] 2022-11-08 2022-11-08 Outpatient R HIMA, [facility] [id number] Univers 08:00:00 08:00:00 WAYNE ity of [facility] 2022-10-24 2022-10-24 [facility] 1.2.840.114 [id number] Univers 00:00:00 00:00:00 Qiamerjun [place] 350.1.13.10 ity of [facility] 4.2.7.2.[place] [id number] Ut dicut NAL [address] [place] [address] 2022-10-19 2022-10-19 [facility] 1.2.840.114 [id number] Univers 00:00:00 00:00:00 Qiangjun [place] 350.1.13.10 ity of [place] 4.2.7.2.[place] [id number] [facility] NAL [address] [place] [address] 2022-10-04 2022-10-04 Telephone [facility] 1.2.973.226 [id number] [id number] Univers 00:00:00 00:00:00 Qiamerjun [place] 350.1.13.10 ity [facility] 4.2.7.2.[place] [id number] [address] 2022-10-04 2022-10-04 [facility] 1.2.384.586 [id number] [id number] Univers 00:00:00 00:00:00 Qiamerjun [place] 350.1.13.10 ity of [facility] 4.2.7.2.[place] [id number] [address] 2022-10-04 2022-10-04 Orders Doctor JOHANN 1.2.840.114 [id number] Univers 00:00:00 00:00:00 Only Unassigned, MIKE 350.1.13.10 ity of [place] [facility] 4.2.7.2.686 Babak as [id number] [address] 2022-09-26 2022-09-27 Outpatient R SY, [facility] [id number] Univers 10:00:00 13:19:48 ROGERZAHEER ity o f [facility] 2022-09-26 2022-09-26 Office Sy, [facility] 1.2.840.114 [id number] Univers 10:00:00 10:10:00 Visit [place] ARANDA 350.1.13.10 ity of [place].7.2.[place] [id number] Ut dical NAL 059 [facility] 2022-09-26 2022-09-26 Iron Miner Farnaz, Adc Lab Main [facility] 1.2.8 40.114 [id number] [facility] 09:45:00 10:00:00 Visit Yolande Santacruz ROSI 350.1.13.10 ity of [place] 4.2.7.2.[place] [id number] Ut dical NAL 353 [facility] 2022-09-26 2022-09-26 Telephone [facility] 1.2.641.730 [id number] Univers 00:00:00 00:00:00 [place] GRAYSONTON 350.1.13.10 ity of [place] 4.2.7.2.[place] [id number] Ut dical NAL 059 [facility] 2022-08-29 2022-08-29 Telephone [facility] 1.2.251.828 [id number] Univers 00:00:00 00:00:00 [place] GRAYSONTON 350.1.13.10 ity of [place] 4.2.7.2.[place] [id number] Ut dical NAL 059 [facility] 2022-08-29 2022-08-29 Telephone [facility] 1.2.210.440 [id number] [id number] Univers 00:00:00 00:00:00 Rogerzaheer [place] 350.1.13.10 ity of [place] 4.2.7.2.[place] 490.0745914 Ut dical NAL 9 [facility] 2022-08-28 2022-08-28 Outpatient R SY [facility] [id number] Univers 15:40:00 16:40:51 CATRINAJUAN ity o f [facility] 2022-08-28 2022-08-28 Office [facility] 1.2.840.114 [id number] Univers 15:40:00 16:40:51 Visit [place] ARANDA 350.1.13.10 ity of [place] 4.2.7.2.[place] [id number] Ut dical NAL 059 [facility] 2022-08-28 2022-08-28 Iron Miner Farnaz, Adc Lab Main [facility] 1.2.8 40.114 [id number] Univers 13:30:00 13:45:00 Visit [place] Dan 350.1.13.10 ity of [facility] 4.2.7.2.[place] 395.8495409 Ut dicut NAL 353 [facility] 2022-08-28 2022-08-28 Office [facility] 1.2.840.114 [id number] Univers 13:00:00 13:27:01 Visit [place] ARANDA 350.1.13.10 ity of [place] 4.2.7.2.[place] [id number] Ut dicut NAL 059 [facility] 2022-08-23 2022-08-23 Orders Doctor JOHANN 1.2.840.114 [id number] Univers 00:00:00 00:00:00 Only Unassigned, MIKE 350.1.13.10 ity of [place] [facility] 4.2.7.2.686 Babak as [id number] [address] 2022-08-22 2022-08-22 Telephone [facility] 1.2.366.734 [id number] [id number] Univers 00:00:00 00:00:00 [place] ARANDA 350.1.13.10 ity of [place] 4.2.7.2.[place] 186.1861903 Ut dical NAL 059 [facility] 2022-08-01 2022-08-01 Outpatient R SEBASTIAN [facility] [id number] Univers 10:11:06 23:59:00 JOSEPH ity of [facility] 2022-08-01 2022-08-01 [facility] 1.2.840.114 [id number] [facility] 10:11:06 23:59:00 Encounter Joseph ARANDA 350.1.13.10 ity of [place] 4.2.7.2.[place] [id number] [facility] [address] [place] 2022-08-01 2022-08-01 Office [facility] 1.2.840.114 [id number] [facility] 15:50:00 16:00:00 Visit [place] ROSI 350.1.13.10 ity of [place] 4.2.7.2.[place] [id number] Ut dical NAL 059 [facility] 2022-08-01 2022-08-01 Iron Miner Farnaz, Adc Lab Main [facility] 1.2.8 40.114 [id number] [facility] 11:00:00 11:15:00 Visit [place] Dan 350.1.13.10 ity of [place] 4.2.7.2.[place] [id number] Ut dical NAL 353 [facility] 2022-08-01 2022-08-01 Telephone [facility] 1.2.431.348 [id number] Univers 00:00:00 00:00:00 [place] ARANDA 350.1.13.10 ity of [place] 4.2.7.2.[place] 360.1166868 Ut dical NAL 059 [facility] 2022-07-31 2022-07-31 Telephone [facility] 1.2.601.976 [id number] [id number] Univers 00:00:00 00:00:00 [place] ARANDA 350.1.13.10 ity of [place] 4.2.7.2.[place] [id number] Ut dical NAL 059 [facility] 2022-07-10 2022-07-10 Office [facility], 1.2.840.1 [id number] [facility] 13:00:00 14:24:58 Visit [place] 26933.1.1 ity of 3.104.2.7 [place] .3.249099 Medica l .8 [place] 2022-07-10 2022-07-10 Outpatient R SY, [facility] [id number] Univers 13:00:00 13:00:00 [place] perez o f [facility] 2022-07-10 2022-07-10 Iron Miner [place] 1.2.840.1 [id number] Univers 10:00:00 10:15:00 Visit Pofredy, Adc Lab Main 87064.1.1 ity of 3.104.2.7 [place] .3.601717 Medica l .8 [place] 2022-07-10 2022-07-10 Orders Doctor 1.2.840.5 [id number] Univers 00:00:00 00:00:00 Only Unassigned, 37768.1.1 ity of [place] 3.104.2.7 [place] .3.667304 Medica l .8 [place] 2022-07-10 2022-07-10 Telephone Sy, 1.2.840.4 [id number] Univers 00:00:00 00:00:00 [place] 55113.1.1 ity of 3.104.2.7 [place] .3.145483 Medica l .8 [place] 2022-06-25 2022-06-25 Outpatient R SY, [facility] [id number] Univers 15:40:00 16:09:43 [place] perez o f [facility] 2022-06-25 2022-06-25 Office Sy, 1.2.840.4 [id number] Univers 15:40:00 16:09:43 Visit [place] 94355.1.1 ity of 3.104.2.7 [place] .3.791414 Medica l .8 [place] 2022-06-25 2022-06-25 Iron Miner [place] 1.2.840.1 [id number] Univers 11:45:00 12:00:00 Visit Pofredy, Adc Lab Main 68163.1.1 ity of 3.104.2.7 [place] .3.893414 Medica l .8 [place] 2022-06-25 2022-06-25 Office Sy, 1.2.840.8 [id number] Univers 11:20:00 11:20:00 Visit [place] 56264.1.1 ity of 3.104.2.7 [place] .3.189866 Medica l .8 [place] 2022-06-25 2022-06-25 Telephone Sy, 1.2.840.0 [id number] Univers 00:00:00 00:00:00 [place] 63921.1.1 ity of 3.104.2.7 [place] .3.184115 Medica l .8 Branch 2022-06-25 2022-06-25 Travel 1.2.840.1 1.2.505.665 8162 15243 Univers 00:00:00 00:00:00 30401.1.1 350.1.13.10 ity of 3.104.2.7 4.2.7.3.698 [place] .3.542449 084.8 Medica l .8 Branch 2022-06-13 2022-06-13 Transition Isaak, 1.2.840.7 [id number] Univers 00:00:00 00:00:00 of Care Jeremy Ricardo 46463.1.1 it y of 3.104.2.7 [place] .3.007476 Medica l .8 Branch 2022-06-06 2022-06-12 Inpatient R MARIIA CARDONA [facility] [id number] Univers 17:19:00 12:24:00 MARIIA CARDONA ity of [facility] 2022-06-06 2022-06-12 Hospital Kirk Hemadriana, 1.2.840.5 [id number] Univers 17:19:00 12:24:00 Encounter Mariia 43405.1.1 it y of 3.104.2.7 [place] .3.978751 Medica l .8 Branch 2022-06-06 2022-06-06 Iron Miner [place] 1.2.840.1 [id number] Univers 10:15:00 10:30:00 Visit Pob, Adc Lab Main 31317.1.1 ity of [place], [place] 3.104.2.7 [place] .3.637315 Medica l .8 Branch 2022-06-06 2022-06-06 Telephone Sy, 1.2.840.8 [id number] Univers 00:00:00 00:00:00 Qiangjun 50065.1.1 ity of 3.104.2.7 [place] .3.527881 Medica l .8 Branch 2022-06-06 2022-06-06 Travel 1.2.840.1 1.2.898.140 5962 [id number] Univers 00:00:00 00:00:00 00975.1.1 350.1.13.10 ity of 3.104.2.7 4.2.7.3.698 [place] .3.829716 084.8 Medica l .8 Branch 2022-06-05 2022-06-05 Telephone Sewani, 1.2.840.5 [id number] 100 [id number] Univers 00:00:00 00:00:00 [place] 18493.1.1 ity of 3.104.2.7 [place] .3.888565 Medica l .8 Branch 2022-05-29 2022-05-29 Telephone Sewani, 1.2.840.8 [id number] Univers 00:00:00 00:00:00 [place] 90779.1.1 ity of 3.104.2.7 [place] .3.277369 Medica l .8 [place] 2022-05-18 2022-05-27 Inpatient ER RUBÉN [facility] Medical ICU 5 [id number] [facility] 08:42:00 16:40:00 MEAGHAN 2022-05-18 2022-05-27 Hospital ER Sean Graham [facility] [id number] [facility] 08:42:00 16:40:00 Vinayak Barton Muhammad [facility] Carmen PaganFranc [place] Angela, Purnima Diane, Meaghan Leyva 2022-05-192022-05-19 Travel [facility] [id number] [facility] 00:00:00 00:00:00 [facility] 2022-05-18 2022-05-18 Orders [facility] [id number] 00:00:00 00:00:00 Only [facility] 2022-05-18 2022-05-18 Telephone Santos [facility] [id number] 00:00:00 00:00:00 Sean Conteh [facility] 2022-05-10 2022-05-10 Outpatient R HIMA [facility] [id number] Univers 11:40:00 12:05:03 WAYNE ity of [facility] 2022-05-10 2022-05-10 Office Hima, 1.2.840.8 [id number] Univers 11:40:00 12:05:03 Visit Wayne 67251.1.1 ity of 3.104.2.7 [place] .3.177588 Medica l .8 [place] 2022-05-10 2022-05-10 Travel 1.2.840.1 1.2.938.250 4804 [id number] Univers 00:00:00 00:00:00 16813.1.1 350.1.13.10 ity of 3.104.2.7 4.2.7.3.698 [place] .3.712872 084.8 Medica l .8 [place] 2022-05-09 2022-05-09 Iron Miner [place] 1.2.840.1 [id number] Univers 10:30:00 10:45:00 Visit Pob, Adc Lab Main 58251.1.1 ity of 3.104.2.7 [place] .3.729192 Medica l .8 [place] 2022-05-09 2022-05-09 Outpatient R SY [facility] [id number] Univers 10:30:00 10:30:00 [place] scotty o f [facility] 2022-05-09 2022-05-09 Orders Doctor 1.2.840.9 [id number] Univers 00:00:00 00:00:00 Only Unassigned, 04712.1.1 ity of [place] 3.104.2.7 [place] .3.305180 Medica l .8 [place] 2022-05-09 2022-05-09 Telephone Ys, 1.2.840.1 [id number] 100 [id number] Univers 00:00:00 00:00:00 [place] 23087.1.1 ity of 3.104.2.7 [place] .3.879526 Medica l .8 [place] 2022-04-12 2022-04-12 [facility] [id number] Univers 11:00:00 11:00:00 WAYNE ity of [facility] 2022-04-12 2022-04-12 [facility] [id number] Univers 11:00:00 11:00:00 WAYNE ity of [facility] 2022-04-11 2022-04-11 [place] [employer] [place] 1.2.840.1 [id number] Univers 09:45:00 10:00:00 Visit Pob, Adc Lab Main 08999.1.1 ity of 3.104.2.7 [place] .3.985993 Medica l .8 [place] 2022-04-11 2022-04-11 [facility] [id number] Univers 09:45:00 09:45:00 [place] perez o f [facility] 2022-04-11 2022-04-11 Orders Doctor 1.2.840.5 [id number] Univers 00:00:00 00:00:00 Only Unassigned, 54641.1.1 ity of [place] 3.104.2.7 [place] .3.016596 Medica l .8 [place] 2022-04-11 2022-04-11 Telephone Sy, 1.2.840.7 [id number] Univers 00:00:00 00:00:00 [place] 30110.1.1 ity of 3.104.2.7 [place] .3.005321 Medica l .8 [place] 2022-03-30 2022-03-30 Refill Sy, 1.2.840.7 [id number] Univers 00:00:00 00:00:00 Qiangzaheer 30148.1.1 ity of 3.104.2.7 [place] .3.574393 Medica l .8 [place] 2022-03-15 2022-03-15 Telephone Sewani, 1.2.840.0 [id number] Univers 00:00:00 00:00:00 Wayne 91595.1.1 ity of 3.104.2.7 [place] .3.639217 Medica l .8 [place] 2022-03-14 2022-03-14 [employer] [place] 1.2.840.1 [id number] Univers 09:30:00 09:45:00 Visit Pob, Adc Lab Main 22681.1.1 ity of 3.104.2.7 [place] .3.825237 Medica l .8 [place] 2022-03-14 2022-03-14 Outpatient R SY [facility] [id number] Univers 09:30:00 09:30:00 [place] scotty o f [facility] 2022-03-14 2022-03-14 Orders Doctor 1.2.840.2 [id number] Univers 00:00:00 00:00:00 Only Unassigned, 74047.1.1 ity of [place] 3.104.2.7 [place] .3.936094 Medica l .8 [place] 2022-03-14 2022-03-14 Telephone Sy, 1.2.840.1 [id number] Univers 00:00:00 00:00:00 [place] 66004.1.1 ity of 3.104.2.7 [place] .3.488779 Medica l .8 [place] 2022-02-28 2022-02-28 [place] 1, Adc Lab [facility] 1.2.840.114 [id number] Univers 13:30:00 13:45:00 Visit [place] Dan KAHOKA 350.1.13.10 ity of [place] 4.2.7.2.686 [facility] [id number] Medi tyrone [address] [place] 2022-02-28 2022-02-28 Outpatient R SY, [facility] [id number] Univers 13:00:00 13:20:24 [place] jimenes [facility] 2022-02-28 2022-02-28 Office [facility] 1.2.840.114 [id number] Univers 13:00:00 13:20:24 Visit Catrinamerzaheer ROSI 350.1.13.10 [facility] [place] [id number] [address] 2022-02-28 2022-02-28 Outpatient R SY, [facility] [id number] Univers 13:00:00 13:00:00 [place] jimenes [facility] 2022-02-28 2022-02-28 Outpatient R SY, [facility] [id number] Univers 13:00:00 13:00:00 [place] jimenes [facility] 2022-02-28 2022-02-28 Outpatient R SY, [facility] [id number] Univers 13:00:00 13:00:00 CATRINAZAHEER jimenes [facility] 2022-02-28 2022-02-28 Orders Doctor JOHANN 1.2.840.114 [id number] Univers 00:00:00 00:00:00 Only Unassigned, MIKE 350.1.13.10 ity of [place] [facility] 4.2.7.2.686 Babak as [id number] [facility] 009 [place] 2022-02-28 2022-02-28 Telephone [facility] 1.2.172.724 [id number] Univers 00:00:00 00:00:00 Rogerzaheer ROSI 350.1.13.10 [facility] [place] [id number] Ut dical NAL 9 [facility] [facility] 2022-02-14 2022-02-14 Iron Miner Farnaz, Adc Lab Main [facility] 1.2.8 40.114 [id number] Univers 09:45:00 10:00:00 Visit Jamaiac Dan 350.1.13.10 ity [facility] [place] [id number] Ut dical NAL 353 [facility] 2022-02-14 2022-02-14 Outpatient R SY [facility] [id number] Univers 09:45:00 09:45:00 QIANGJUN ity o f [facility] 2022-02-14 2022-02-14 Orders Doctor JOHANN 1.2.840.114 [id number] Univers 00:00:00 00:00:00 Only Unassigned, MIKE 350.1.13.10 ity of [place] [facility] 4.2.7.2.686 Babak as [phone] [address] 2022-02-14 2022-02-14 Telephone [facility] 1.2.269.352 [id number] Univers 00:00:00 00:00:00 [place] 350.1.13.10 ity of [place] [id number] Ut dical NAL 059 [facility] 2022-02-13 2022-02-13 [facility]ill [facility] 1.2.840.114 [id number] Univers 00:00:00 00:00:00 [place] 350.1.13.10 ity of [place] 4.2.7.2.[place] [id number] Ut dical NAL 059 [facility] 2022-01-27 2022-01-27 Telephone [facility] 1.2.588.388 [id number] Univers 00:00:00 00:00:00 Rogerjun [place] 350.1.13.10 ity of [place] 4.2.7.2.[place] [id number] Ut dical NAL 059 [facility] 2022-01-25 2022-01-25 Iron Miner Farnaz, Andre Lab Main [facility] 1.2.8 40.114 [id number] Univers 08:45:00 09:00:00 Visit [place] Dan 350.1.13.10 ity of [place] 4.2.7.2.[place] [id number] Ut dical NAL [address] [place] [address] 2022-01-25 2022-01-25 Outpatient R SY, [facility] [id number] Univers 08:45:00 08:45:00 QIAJUAN ity o f [facility] 2022-01-19 2022-01-19 Iron Miner Farnaz, Adc Lab Main [facility] 1.2.8 40.114 [id number] Univers 12:30:00 12:45:00 Visit [place] Dan [place] 350.1.13.10 ity of [place] 4.2.7.2.[place] [id number] Ut dical NAL [address] [place] [address] 2022-01-19 2022-01-19 Outpatient R SY, [facility] [id number] Univers 12:30:00 12:30:00 QIANGJUN ity o [facility] 2022-01-19 2022-01-19 Telephone [facility] 1.2.671.638 [id number] Univers 00:00:00 00:00:00 Qiangjun [place] 350.1.13.10 ity of [place] 4.2.7.2.[place] [phone] Ut dicut NAL [address] [place] [address] 2022-01-17 2022-01-17 Iron Miner Farnaz, Adc Lab Main [facility] 1.2.8 40.114 [id number] Univers 08:45:00 09:00:00 Visit [place] DanTON 350.1.13.10 ity of [place] 4.2.7.2.[place] [id number] Ut dical NAL [address] [place] [address] 2022-01-17 2022-01-17 Outpatient R SY, [facility] [id number] Univers 08:45:00 08:45:00 QIANGJUN ity o [facility] 2022-01-17 2022-01-17 Telephone [facility] 1.2.947.022 [id number] Univers 00:00:00 00:00:00 Qiangjun [place] 350.1.13.10 ity of [place] 4.2.7.2.[place] [id number] Ut dical NAL [address] [place] [address] 2021-12-28 2021-12-28 Iron Miner Farnaz, Adc Lab Main [facility] 1.2.8 40.114 [id number] Univers 10:30:00 10:45:00 Visit Yolande Santacruz 350.1.13.10 ity of [place] 4.2.7.2.[place] [phone] [facility] 353 [facility] 2021-12-28 2021-12-28 Outpatient R IVAN [facility] [id number] Univers 10:30:00 10:30:00 YOLANDE ity [facility] 2021-12-28 2021-12-28 Telephone Sy[facility] 1.2.129.480 [id number] Univers 00:00:00 00:00:00 Qiangjun PEDIATRIC 350.1.13.10 ity of [place].2.[place] [id number] [address] 2021-12-15 2021-12-15 Telephone [facility] 1.2.314.076 [id number] Univers 00:00:00 00:00:00 Qiangjun [place] 350.1.13.10 ity of [place] 4.2.7.2.[place] [id number] Ut dical NAL 9 [facility] 2021-12-15 2021-12-15 Telephone [facility] 1.2.000.021 [id number] Univers 00:00:00 00:00:00 Qiangjun [place] 350.1.13.10 ity of [place] 4.2.7.2.[place] [id number] Ut dical NAL 9 [facility] 2021-12-15 2021-12-15 Refill [facility] 1.2.840.114 [id number] Univers 00:00:00 00:00:00 Qiangjun [place] 350.1.13.10 ity of [place] 4.2.7.2.[place] [phone] Ut dical NAL 9 [facility] 2021-12-14 2021-12-14 Iron Miner Farnaz, Adc Lab Main [facility] 1.2.8 40.114 [id number] Univers 12:30:00 12:45:00 Visit [place] DanJAVIER 350.1.13.10 ity of [place] 4.[place].2.[place] [id number] [facility] 353 [facility] 2021-12-14 2021-12-14 Outpatient R [facility] [id number] Univers 12:30:00 12:30:00 J[place] scotty o f [facility] 2021-12-14 2021-12-14 Orders Doctor JOHANN 1.2.840.114 [id number] Univers 00:00:00 00:00:00 Only Unassigned, MIKE 350.1.13.10 ity of [place] [facility] 4.2.7.2.686 Babak as [phone] [facility] [address] 2021-12-04 2021-12-04 Iron Miner Farnaz, Adc Lab Main [facility] 1.2.8 40.114 [id number] Univers 14:15:00 14:30:00 Visit [place] Dan ROSI 350.1.13.10 ity of [facility] 4.2.7.2.[place] [id number] [address] 2021-12-04 2021-12-04 Outpatient R [facility] [id number] Univers 14:15:00 14:15:00 JAMAICA perez o [facility] 2021-12-04 2021-12-04 Outpatient R [facility] [id number] Univers 14:15:00 14:15:00 [place] scotty o f [facility] 2021-12-04 2021-12-04 Transition ALESIA Gamez 1.2.840.114 [id number] Univers 00:00:00 00:00:00 of Care Georgie SAMANIEGO 350.1.13.10 it y of [place]2.[place].2.[place] [id number] [facility] [address] 2021-12-04 2021-12-04 Telephone [facility] 1.2.463.126 [id number] Univers 00:00:00 00:00:00 [place] ARANDA 350.1.13.10 ity of [place].2.[place] [id number] Ut dical NAL 059 [facility] 2021-11-23 2021-12-01 Inpatient R [facility] [id number] Univers 15:31:00 14:11:00 NAVEEN TRACEGABI ity of [facility] 2021-11-23 2021-12-01 Hospital SHAYAN [facility] 1.2.426.667 [id number] Univers 15:31:00 14:11:00 Encounter Rebeca MCKEON 350.1.13.10 ity of [facility] 4.2.7.2.686 Babak as [phone] [address] 2021-12-01 2021-12-01 Telephone [facility] 1.2.551.175 [id number] Univers 00:00:00 00:00:00 Wayne ROSI 350.1.13.10 i ty of [place].7.2.[place] [id number] Ut dical NAL 059 [facility] 2021-11-23 2021-11-23 Orders Doctor JOHANN 1.2.840.114 [id number] Univers 00:00:00 00:00:00 Only Unassigned, MIKE 350.1.13.10 ity of [place] [facility] 4.2.7.2.686 Babak as [phone] [facility] 00[address] [place] 2021-11-22 2021-11-22 Iron Miner Farnaz, Andre Lab Main [facility] 1.2.8 40.114 [id number] Univers 07:45:00 08:00:00 Visit [place] Dan 350.1.13.10 ity of [place] 4[place].2.[place] [phone] Ut dical NAL 353 [facility] 2021-11-22 2021-11-22 [facility] [id number] Univers 07:45:00 07:45:00 JAMA[place] perez o f [facility] 2021-11-22 2021-11-22 Outpatient R SY [facility] [id number] Univers 07:45:00 07:45:00 JAMAICA perez o alfonso [facility] 2021-11-20 2021-11-20 Telephone [facility] 1.2.558.240 [id number] Univers 00:00:00 00:00:00 [place] ARANDA 350.1.13.10 ity of [place] 4.2.7.2.[place] [id number] Ut dical NAL 9 [facility] 2021-11-10 2021-11-10 Iron Miner Farnaz, Adc Lab Main [facility] 1.2.8 40.114 [id number] Univers 16:45:00 17:00:00 Visit [place] Dan 350.1.13.10 ity of [place] 4.2.7.2.[place] [id number] [facility] 353 [facility] 2021-11-10 2021-11-10 Outpatient R [facility] [id number] Univers 16:45:00 16:45:00 J[place] jimenes [facility] 2021-11-10 2021-11-10 Outpatient R [facility] [id number] Univers 16:45:00 16:45:00 [place] jimenes [facility] 2021-11-10 2021-11-10 Telephone [facility] 1.2.491.574 [id number] Univers 00:00:00 00:00:00 Rogerzaheer ARANDA 350.1.13.10 ity of [place] 4.2.7.2.[place] [phone] [facility] NAL [address] [place] [address] 2021-11-07 2021-11-07 Telephone [facility] 1.2.840.114 [id number] Univers 00:00:00 00:00:00 h, [facility] 350.1.13.10 i ty of [place] [id number] [place] [id number] [facility] 2021-11-06 2021-11-06 Iron Miner Farnaz, Adc Lab Main [facility] 1.2.8 40.114 [id number] Univers 13:15:00 13:30:00 Visit [place] Dan 350.1.13.10 ity of [place] 4.2.7.2.[place] [id number] [facility] 353 [facility] 2021-11-06 2021-11-06 [facility] [id number] Univers 13:15:00 13:15:00 [place] scotty o f [facility] 2021-11-06 2021-11-06 Outpatient R SY, [facility] [id number] Univers 13:15:00 13:15:00 J[place] perez o [facility] 2021-11-06 2021-11-06 Telephone [facility] 1.2.745.598 [id number] Univers 00:00:00 00:00:00 [place] ARANDA 350.1.13.10 ity of [place].2.[place] [phone] [address] 2021-11-06 2021-11-06 Telephone [facility] 1.2.359.011 [id number] Univers 00:00:00 00:00:00 Wayne HEALTH 350.1.13.10 it y of [place] [id number] [address] OFFICE [facility] 2021-11-03 2021-11-03 Outpatient R [facility] [id number] Univers 15:00:00 15:40:28 WAYNE ity [facility] 2021-11-03 2021-11-03 Outpatient R [facility] [id number] Univers 15:00:00 15:40:28 WAYNE ity [facility] 2021-11-03 2021-11-03 Office [facility] 1.2.840.114 [id number] Univers 15:00:00 15:20:00 Visit [place] 350.1.13.10 i ty of [place] 4.2.7.2.[place] [phone] [address] 2021-11-03 2021-11-03 Outpatient [facility] [id number] Univers 15:00:00 15:00:00 WAYNE ity [facility] 2021-11-03 2021-11-03 Iron Miner Farnaz, Adc Lab Main [facility] 1.2.8 40.114 [id number] Univers 14:30:00 14:45:00 Visit [place] Dan 350.1.13.10 ity of [place] 4.2.[place].2.[place] [phone] [facility] 353 [facility] 2021-11-03 2021-11-03 Out[facility] [id number] Univers 11:00:00 11:00:00 WAYNE ity [facility] 2021-11-03 2021-11-03 Out[facility] [id number] Univers 11:00:00 11:00:00 WAYNE ity [facility] 2021-11-03 2021-11-03 Outpatient [facility] [id number] Univers 11:00:00 11:00:00 WAYNE ity [facility] 2021-11-03 2021-11-03 Telephone [facility] 1.2.826.602 [id number] Univers 00:00:00 00:00:00 [place] G[place]YS[place]ON 350.1.13.10 ity of [place] 4.2.7.2.[place] [id number] Ut dicut NAL 9 [facility] 2021-10-25 2021-10-25 Refill [facility] 1.2.840.114 [id number] Univers 00:00:00 00:00:00 Qiamerjun [place] 350.1.13.10 ity of [place] 4[place]2.7.2.[place] [id number] Ut dical NAL 9 [facility] 2021-10-23 2021-10-23 Iron Miner Farnaz, Adc Lab Main [facility] 1.2.8 40.114 [id number] Univers 10:15:00 10:30:00 Visit [place]TON 350.1.13.10 ity of [place] 4.2.7.2.[place] [id number] Ut dical NAL 353 [facility] 2021-10-23 2021-10-23 Outpatient R SY [facility] [id number] Univers 10:15:00 10:15:00 QIAMERJUN ity o f [facility] 2021-10-23 2021-10-23 Outpatient R SY, [facility] [id number] Univers 10:15:00 10:15:00 [place] perez o f [facility] 2021-10-23 2021-10-23 Orders Doctor JOHANN 1.2.840.114 [id number] Univers 00:00:00 00:00:00 Only Unassigned, MIKE 350.1.13.10 ity of [facility] 4.2.7.2.686 Babak as [id number] [address] 2021-10-23 2021-10-23 Refill [facility] 1.2.840.114 [id number] Univers 00:00:00 00:00:00 [place] ARANDA 350.1.13.10 ity of [place] [id number] Ut dical NAL 059 [facility] 2021-10-23 2021-10-23 Telephone [facility] 1.2.285.961 [id number] Univers 00:00:00 00:00:00 [place] ARANDA 350.1.13.10 ity of [place] [id number] Ut dical NAL 059 [facility] 2021-10-18 2021-10-18 Iron Miner Farnaz, Andre Lab Main [facility] 1.2.8 40.114 [id number] Univers 09:30:00 09:45:00 Visit [place] Dan 350.1.13.10 ity of [place].2.[place] [id number] Ut dical NAL 353 [facility] 2021-10-18 2021-10-18 [facility] [id number] Univers 09:30:00 09:30:00 [place] jimenes f [facility] 2021-10-18 2021-10-18 Outpatient R YS, [facility] [id number] Univers 09:30:00 09:30:00 QIANGJUN ity o f [facility] 2021-10-18 2021-10-18 Telephone [facility] 1.2.890.196 [id number] Univers 00:00:00 00:00:00 Qiangjun [place] 350.1.13.10 ity of [place] 4[place]2.7.2.[place] [id number] Ut dical NAL 059 [facility] 2021-10-13 2021-10-13 Iron Miner Farnaz, Adc Lab Main [facility] 1.2.8 40.114 [id number] Univers 10:45:00 11:00:00 Visit [place] Dan [place] 350.1.13.10 ity of [place] 4.[place].2.[place] [id number] Ut dical NAL 353 [facility] 2021-10-13 2021-10-13 Outpatient R SY, [facility] [id number] Univers 10:45:00 10:45:00 QIAJUAN ity o [facility] 2021-10-13 2021-10-13 Outpatient R SY, [facility] [id number] Univers 10:45:00 10:45:00 QIANGZAHEER ity o f [facility] 2021-10-13 2021-10-13 Telephone [facility] 1.2.498.214 [id number] Univers 00:00:00 00:00:00 Qiamerjun [place] 350.1.13.10 ity of [place] 4.2.7.2.[place] [id number] Ut dical NAL 059 [facility] 2021-09-27 2021-09-27 Iron Miner Farnaz, Adc Lab Main [facility] 1.2.8 40.114 [id number] Univers 10:15:00 10:30:00 Visit [place] Dan [place] 350.1.13.10 ity of [place] 4.2.7.2.[place] [id number] Me dical NAL 353 [facility] 2021-09-27 2021-09-27 Outpatient R SY, [facility] [id number] Univers 10:15:00 10:15:00 J[place]ICA ity o f [facility] 2021-09-27 2021-09-27 Outpatient R SY, [facility] [id number] Univers 10:15:00 10:15:00 CATRINAJUAN ity o f [facility] 2021-09-27 2021-09-27 Telephone [facility] 1.2.128.757 [id number] Univers 00:00:00 00:00:00 Qiamerjun [place] 350.1.13.10 ity of [place] 4.2.[place].2.[place] [phone] [address] 2021-09-27 2021-09-27 Telephone [facility] 1.2.109.564 [id number] Univers 00:00:00 00:00:00 [place] 350.1.13.10 ity of [place] 4[place]2.[place].2.[place] [id number] Ut dicut NAL [address] [place] [address] 2021-09-21 2021-09-21 Refill [facility] 1.2.840.114 [id number] Univers 00:00:00 00:00:00 [place] 350.1.13.10 ity of [place] 4.2.7.2.[place] [id number] [facility] NAL [address] [place] [address] 2021-09-01 2021-09-01 Telephone [facility] 1.2.669.894 [id number] Univers 00:00:00 00:00:00 Qiamerjun [place] 350.1.13.10 ity of [place] 4.2.7.2.[place] [id number] [facility] NAL [address] [place] [address] 2021-08-30 2021-08-30 Iron Miner Farnaz, Adc Lab Main [facility] 1.2.8 40.114 [id number] Univers 09:00:00 09:15:00 Visit [place] Dan 350.1.13.10 ity [facility] 4.2.7.[place] [id number] Ut dickirk [facility] 353 [facility] 2021-08-30 2021-08-30 Outpatient R SY, [facility] [id number] Univers 09:00:00 09:00:00 [place] perez o f [facility] 2021-08-30 2021-08-30 Outpatient R SY, [facility] [id number] Univers 09:00:00 09:00:00 [place] perez o [facility] 2021-08-30 2021-08-30 Orders Doctor JOHANN 1.2.840.114 [id number] Univers 00:00:00 00:00:00 Only Unassigned, MIKE 350.1.13.10 ity of [facility] 4.2.7.2.686 Babak as [id number] [address] 2021-08-30 2021-08-30 Telephone [facility] 1.2.808.565 [id number] Univers 00:00:00 00:00:00 Catrinamerzaheer ARANDA 350.1.13.10 ity [facility] 4.2.[place] [id number] Ut dicut ADITYA [address] [place] [address] 2021-08-28 2021-08-28 Office [facility] 1.2.840.114 [id number] Univers 10:40:00 10:49:42 Visit [place] ROSI 350.1.13.10 ity of [place].2.[place] [id number] Ut natasha BURGESS [address] [place] [address] 2021-08-28 2021-08-28 Outpatient R SY, [facility] [id number] Univers 10:40:00 10:49:42 [place] ana jalil [facility] 2021-08-28 2021-08-28 Outpatient R SY, [facility] [id number] Univers 10:40:00 10:40:00 ROGERZAHEER ana o [facility] 2021-08-28 2021-08-28 Outpatient R SY, [facility] [id number] Univers 10:40:00 10:40:00 J[place]ICA ity o f [facility] 2021-08-16 2021-08-16 Iron Miner Farnaz, Adc Lab Main [facility] 1.2.8 40.114 [id number] Univers 12:15:00 12:30:00 Visit [place] Dan 350.1.13.10 ity [facility] 4.2.7.[place] [id number] Ut dical NAL 353 [facility] 2021-08-16 2021-08-16 Outpatient R [facility] [id number] Univers 12:15:00 12:15:00 J[place]ICA ity o [facility] 2021-08-16 2021-08-16 Outpatient R [facility] [id number] Univers 12:15:00 12:15:00 J[place]ICA ity o [facility] 2021-08-16 2021-08-16 Orders Doctor JOHANN 1.2.840.114 [id number] Univers 00:00:00 00:00:00 Only Unassigned, MIKE 350.1.13.10 ity of [facility] 4.2.7.2.686 Babak as [id number] [address] 2021-08-16 2021-08-16 Telephone [facility] 1.2.916.923 [id number] Univers 00:00:00 00:00:00 Catrinamerzaheer ROSI 350.1.13.10 ity of [facility] 4.2.[place] [id number] Ut dical NAL 059 [facility] 2021-08-02 2021-08-02 Iron Miner Farnaz, Adc Lab Main [facility] 1.2.8 40.114 [id number] Univers 09:00:00 09:15:00 Visit [place] DanJAVIER 350.1.13.10 ity of [facility] 4.2.7.[place] [id number] Ut dical NAL 353 [facility] 2021-08-02 2021-08-02 Outpatient R [facility] [id number] Univers 09:00:00 09:00:00 J[place] ity o [facility] 2021-08-02 2021-08-02 Outpatient R SY, [facility] [id number] Univers 09:00:00 09:00:00 ROGERZAHEER ana o [facility] 2021-08-02 2021-08-02 Orders Doctor JOHANN 1.2.840.114 [id number] Univers 00:00:00 00:00:00 Only Unassigned, MIKE 350.1.13.10 ity of [place] [facility] 4.2.7.2.686 Babak as [id number] [address] 2021-08-02 2021-08-02 Telephone [facility] 1.2.546.051 [id number] Univers 00:00:00 00:00:00 [place] ARANDA 350.1.13.10 ity of [place] [id number] Ut dical NAL 059 [facility] 2021-07-10 2021-07-10 [facility]ill [facility] 1.2.840.114 [id number] Univers 00:00:00 00:00:00 [place] ARANDA 350.1.13.10 ity [facility] 4.2.7.2.[place] [id number] Ut dical NAL 059 [facility] 2021-07-05 2021-07-05 Iron Miner Farnaz, Adc Lab Main [facility] 1.2.8 40.114 [id number] Univers 09:30:00 09:45:00 Visit [place] Dan 350.1.13.10 ity [facility] 4.2.7.2.[place] [id number] Ut dical NAL 353 [facility] 2021-07-05 2021-07-05 [facility] [id number] Univers 09:30:00 09:30:00 [place] jimenes alfonso [facility] 2021-07-05 2021-07-05 [facility] [id number] Univers 09:30:00 09:30:00 J[place] hayes [facility] 2021-07-05 2021-07-05 Telephone [facility] 1.2.319.674 [id number] Univers 00:00:00 00:00:00 Catrinamerzaheer ARANDA 350.1.13.10 ity of [place] 4[place]2.[place].2.[place] [phone] Ut dical NAL 059 [facility] 2021-06-15 2021-06-15 Iron Miner Farnaz, Adc Lab Main [facility] 1.2.8 40.114 [id number] Univers 09:45:00 10:00:00 Visit Catrina Danmerzaheer ROSI 350.1.13.10 it[id number] [phone] [facility] 353 [facility] 2021-06-15 2021-06-15 Outpatient R [facility] [id number] Univers 09:45:00 09:23:22 [place] scotty o [facility] 2021-06-15 2021-06-15 Outpatient R [facility] [id number] Univers 09:45:00 09:23:22 [place] scotty o [facility] 2021-06-15 2021-06-15 Orders Doctor JOHANN 1.2.840.114 [id number] Univers 00:00:00 00:00:00 Only Unassigned, MIKE 350.1.13.10 ity of [place] [facility] 4.2.7.2.686 [place] as [phone] [facility] [address] 2021-06-15 2021-06-15 Telephone SyYANY [id number] Univers 00:00:00 00:00:00 [place] PEDIATRIC 350.1.13.10 [id number] [phone] [facility] PRIMARY [address] [facility] 2021-05-31 2021-05-31 [employer]er Farnaz, Adc Lab Main [facility] 1.2.8 40.114 [id number] Univers 10:45:00 11:00:00 Visit Sy Rogerzaheer ARANDA 350.1.13.10 [place] [phone] Ut dical NAL 353 [facility] 2021-05-31 2021-05-31 [facility] 1.2.840.114 [id number] Univers 10:00:00 10:33:12 Visit [place] ARNADA 350.1.13.10 ity [facility] [place] [phone] Ut dical NAL 059 [facility] 2021-05-31 2021-05-31 Outpatient R SY, [facility] [id number] Univers 10:00:00 10:33:12 QIAJUAN scotty o [facility] 2021-05-31 2021-05-31 Outpatient R SY, [facility] [id number] Univers 10:00:00 10:00:00 [place] perez o [facility] 2021-05-31 2021-05-31 Telephone [facility] [id number] Univers 00:00:00 00:00:00 [place] ARANDA [id number] ity [facility] [id number] [phone] Ut dical NAL 059 [facility] 2021-05-26 2021-05-26 Emergency X JAKE, K [facility] ERT [id number] Univers 17:30:00 20:34:00 ity [facility] 2021-05-26 2021-05-26 Emergency Jake, K [facility] 1.2.840.114 [id number] Univers 17:30:00 20:34:00 Myah ARANDA 350.1.13.10 i [place] [phone] [facility] [address] [place] 2021-05-26 2021-05-26 Outpatient R SY, [facility] [id number] Univers 10:20:00 10:20:00 [place] scotty o [facility] [facility] 2021-05-26 2021-05-26 Outpatient R SY, [facility] [id number] Univers 10:20:00 10:20:00 [place] tylery o [facility] 2021-05-10 2021-05-10 Iron Miner Pob, Adc Lab Main [facility] 1.2.8 40.114 [id number] Univers 08:15:00 08:30:00 Visit [place] Dan KE[place]ON 350.1.13.10 ity of [place] [phone] Ut natasha NAL 353 [facility] 2021-05-10 2021-05-10 Outpatient R SY, [facility] [id number] Univers 08:15:00 08:15:00 [place] ity o f [facility] 2021-05-10 2021-05-10 Outpatient R SY, [facility] [id number] Univers 08:15:00 08:15:00 [place] scotty o f [facility] 2021-05-10 2021-05-10 Telephone [facility] 1.2.519.183 [id number] Univers 00:00:00 00:00:00 Catrinamerzaheer [place] 350.1.13.10 ity of [place] 4.[place].7.2.[place] [phone] Ut dicut NAL 059 [facility] 2021-05-10 2021-05-10 Telephone [facility] 1.2.997.018 [id number] Univers 00:00:00 00:00:00 Rogerzaheer [place] 350.1.13.10 ity of [place] 4.[place].2.[place] [phone] Ut dicut NAL [address] [place] [address] 2021-05-09 2021-05-09 Refill [facility] 1.2.840.114 [id number] Univers 00:00:00 00:00:00 Qiamerzaheer [place] 350.1.13.10 ity of [place] 4.[place].2.[place] [phone] Ut dical NAL [address] [place] [address] 2021-05-04 2021-05-04 Refill [facility] 1.2.840.114 [id number] Univers 00:00:00 00:00:00 Qiamerzaheer [place] 350.1.13.10 ity of [place] [phone] Ut dical NAL 059 [facility] 2021-04-28 2021-04-28 Outpatient R HIMA [facility] [id number] Univers 08:40:00 09:19:00 WAYNE ity [facility] 2021-04-28 2021-04-28 Office Hima [facility] 1.2.840.114 [id number] Univers 08:40:00 09:19:00 Visit [facility] 350.1.13.10 i ty of [place] 4.2.7.2.[place] [phone] Ut dical NAL 059 [facility] 2021-04-28 2021-04-28 Outpatient R HIMA [facility] [id number] Univers 08:40:00 09:19:00 WAYNE ity [facility] 2021-04-28 2021-04-28 Iron Miner Farnaz, Adc Lab Main [facility] 1.2.8 40.114 [id number] Univers 08:00:00 08:15:00 Visit SyJamaica 350.1.13.10 ity [facility] 4.2.7.2.[place] [phone] Ut dical NAL 353 [facility] 2021-04-27 2021-04-27 Iron Miner Farnaz, Adc Lab Main [facility] 1.2.8 40.114 [id number] Univers 10:45:00 11:00:00 Visit Sy [place] ARANDA 350.1.13.10 ity [facility] 4.2.7.2.[place] [phone] Ut dical NAL 353 [facility] 2021-04-27 2021-04-27 Outpatient R SY, [facility] [id number] Univers 10:45:00 10:45:00 [place] perez o [facility] 2021-04-27 2021-04-27 Outpatient R SY, [facility] [id number] Univers 10:45:00 10:45:00 [place] perez o [facility] 2021-04-27 2021-04-27 Telephone YANY Dan 1.2.516.128 [id number] Univers 00:00:00 00:00:00 [place] PEDIATRIC 350.1.13.10 [place] of [place]2.[place].2.[place] AD[place] [id number] [facility] PRIMARY 059 [facility] 2021-04-25 2021-04-25 Outpatient R HIMA [facility] [id number] Univers 10:20:00 10:20:00 WAYNE ity [facility] 2021-04-25 2021-04-25 [facility] [id number] Univers 10:20:00 10:20:00 WAYNE ity [facility] 2021-04-12 2021-04-12 Iron Miner Farnaz, Adc Lab Main [facility] 1.2.8 40.114 [id number] Univers 09:30:00 09:45:00 Visit SyJamaica 350.1.13.10 ity [facility] 4.2.7.2.[place] [id number] Ut dical NAL 353 [facility] 2021-04-12 2021-04-12 Outpatient R [facility] [id number] Univers 09:30:00 09:30:00 [place] scotty o f [facility] 2021-04-12 2021-04-12 Outpatient R [facility] [id number] Univers 09:30:00 09:30:00 CATRINAJUAN tylery o f [facility] 2021-04-12 2021-04-12 Orders Doctor WILLS 1.2.840.114 [id number] Univers 00:00:00 00:00:00 Only Unassigned, MIKE 350.1.13.10 ity of [place] [facility] 4.2.7.2.686 Babak as [phone] [facility] [address] 2021-04-12 2021-04-12 Telephone [facility] 1.2.646.975 [id number] Univers 00:00:00 00:00:00 [place] ARANDA 350.1.13.10 ity [facility] 4.2.7.2.[place] [id number] Ut dical NAL 059 [facility] 2021-03-29 2021-03-29 Outpatient R [facility] [id number] Univers 11:20:00 11:20:58 [place] hayes [facility] 2021-03-29 2021-03-29 Office [facility] 1.2.840.114 [id number] Univers 11:20:00 11:20:58 Visit [place] ARANDA 350.1.13.10 ity [facility] 4.2.7.2.[place] [id number] Ut dical NAL 059 [facility] 2021-03-28 2021-03-28 Iron Miner Farnaz, Adc Lab Main [facility] 1.2.8 40.114 [id number] Univers 12:13:20 12:28:20 Visit [place] Dan 350.1.13.10 ity [facility] 4.2.7.2.[place] [phone] Ut dical NAL 353 [facility] 2021-03-28 2021-03-28 Outpatient R [facility] [id number] Univers 12:15:00 12:15:00 [place] jimenes [facility] 2021-03-28 2021-03-28 Outpatient R [facility] [id number] Univers 12:15:00 12:15:00 [place] jimenes [facility] 2021-03-28 2021-03-28 Orders Doctor JOHANN 1.2.840.114 [id number] Univers 00:00:00 00:00:00 Only Unassigned, MIKE 350.1.13.10 ity of [place] [facility] 4.2.7.2.686 Babak as [phone] [address] 2021-03-28 2021-03-28 Telephone [facility] 1.2.688.868 [id number] Univers 00:00:00 00:00:00 [place] ARANDA 350.1.13.10 ity [facility] 4.2.7.2.[place] [phone] Ut dical NAL 059 [facility] 2021-03-28 2021-03-28 Refill [facility] 1.2.840.114 [id number] Univers 00:00:00 00:00:00 Qiangjun [place] 350.1.13.10 ity of [place] 4.2.7.2.[place] [id number] Ut dical NAL 059 [facility] 2021-03-20 2021-03-20 [facility] [id number] Univers 13:45:00 13:45:00 QIAMERJUN ity o f [facility] 2021-03-20 2021-03-20 [facility] [id number] [facility] 13:45:00 13:45:00 QIANGJUN ity o f [facility] 2021-03-20 2021-03-20 Iron Miner Farnaz, Adc Lab Main [facility] 1.2.8 40.114 [id number] Univers 11:58:29 12:13:29 Visit [place] Dan [place] 350.1.13.10 ity of [place] 4.2.7.2.[place] [phone] Ut dical NAL 353 [facility] 2021-03-20 2021-03-20 [facility] 1.2.050.917 [id number] Univers 00:00:00 00:00:00 Qiamerjun [place] 350.1.13.10 ity of [place] 4.2.7.2.[place] [id number] Ut dical NAL 059 [facility] 2021-03-15 2021-03-15 [facility] [id number] [facility] 09:15:00 09:15:00 JOSE itjake [facility] 2021-03-15 2021-03-15 [facility] [id number] [facility] 09:15:00 09:15:00 JOSE ity [facility] 2021-03-15 2021-03-15 Iron Miner Farnaz, Adc Lab Main [facility] 1.2.8 40.114 [id number] Univers 08:14:37 08:29:37 Visit Jose Villa Luly [place] 350.1.13. 10 ity of [place] 4.2.7.2.[place] [phone] Ut dical NAL [address] [facility] 2021-03-15 2021-03-15 Orders Doctor JOHANN 1.2.840.114 [id number] Univers 00:00:00 00:00:00 Only Unassigned, MIKE 350.1.13.10 ity of [place] [facility] 4.2.7.2.686 Babak as [phone] [facility] [address] 2021-03-15 2021-03-15 [facility] 1.2.459.151 [id number] Univers 00:00:00 00:00:00 [place] ARANDA 350.1.13.10 ity of [place] 4.2.7.2.[place] [facility] [id number] Ut dical NAL 059 [address] [facility] 2021-03-07 2021-03-07 Transition ALESIA Gamez 1.2.840.114 [id number] Univers 00:00:00 00:00:00 of Care Georgie SAMANIEGO 350.1.13.10 it y of [place] 4.2.7.2.[place] [id number] [facility] [address] 2021-03-01 2021-03-06 Inpatient X LILIA [facility] BERENICE [id number] Univers 11:31:00 15:17:00 CALEB perez of [facility] 2021-03-01 2021-03-06 [facility] Jamie Deng [facility] 1.2.840.1 14 [id number] Univers 11:31:00 15:17:00 Encounter Caleb Rodrigues 350.1.13.10 ity of [place].2.[place] [phone] [facility] [address] 2021-03-01 2021-03-01 Outpatient X LILIA [facility] [id number] Univers 11:31:00 11:31:00 CALEB perez [facility] 2021-02-27 2021-02-27 [facility] [id number] Univers 11:20:00 11:44:55 [place] perez o f [facility] 2021-02-27 2021-02-27 [facility] [id number] Univers 11:20:00 11:44:55 [place] hayes [facility] 2021-02-27 2021-02-27 Outpatient R SY, [facility] [id number] Univers 11:20:00 11:44:55 [place] jimenes [facility] 2021-02-27 2021-02-27 Outpatient R SY, [facility] [id number] Univers 11:20:00 11:44:55 [place] jimenes [facility] 2021-02-27 2021-02-27 Office [facility] 1.2.840.114 [id number] Univers 10:54:32 11:44:55 Visit [place] ARANDA 350.1.13.10 ity [facility] 4.2.7.2.[place] [phone] Ut dical NAL 059 [facility] 2021-02-27 2021-02-27 Outpatient R SY, [facility] [id number] Univers 10:30:00 10:30:00 [place] jimenes [facility] 2021-02-27 2021-02-27 Outpatient R SY, [facility] [id number] Univers 10:30:00 10:30:00 [place] jimenes [facility] 2021-02-27 2021-02-27 Iron Miner Farnaz, Adc Lab Main [facility] 1.2.8 40.114 [id number] Univers 09:52:58 10:07:58 Visit [place] Dan 350.1.13.10 ity of [place] 4.2.7.2.[place] [phone] Me dical NAL 353 [facility] 2021-02-27 2021-02-27 Orders Doctor JOHANN 1.2.840.114 [id number] Univers 00:00:00 00:00:00 Only Unassigned, MIKE 350.1.13.10 ity of [place] [facility] 4.2.7.2.686 Baabk as [phone] [address] 2021-02-27 2021-02-27 [facility]phone [facility] 1.2.165.236 [id number] Univers 00:00:00 00:00:00 Qiamerjun [place] 350.1.13.10 ity of [place] 4.2.7.2.[place] [phone] Ut dical NAL 059 [facility] 2021-02-24 2021-02-24 Outpatient R SY, [facility] [id number] Univers 10:45:00 10:45:00 QIANGJUN ity o f [facility] 2021-02-24 2021-02-24 Outpatient R SY, [facility] [id number] Univers 10:45:00 10:45:00 QIANGJUN ity o f [facility] 2021-02-24 2021-02-24 Iron Miner Farnaz, Adc Lab Main [facility] 1.2.8 40.114 [id number] Univers 09:17:46 09:32:46 Visit Catrina Danjuan [place] 350.1.13.10 ity of [place] 4.2.7.2.[place] [id number] Ut dical NAL 353 [facility] 2021-02-24 2021-02-24 Telephone [facility] 1.2.210.859 [id number] Univers 00:00:00 00:00:00 Qiamerjun [place] 350.1.13.10 ity of [place] 4.2.7.2.[place] [phone] Ut dical NAL 059 [facility] 2021-02-24 2021-02-24 Telephone [facility] 1.2.191.705 [id number] Univers 00:00:00 00:00:00 Qiamerjun [place] 350.1.13.10 ity of [place] 4.2.7.2.[place] [phone] Ut dical NAL 059 [facility] 2021-02-24 2021-02-24 Telephone [facility] 1.2.229.641 [id number] Univers 00:00:00 00:00:00 Qiangjun [place] 350.1.13.10 ity of [place] 4.2.7.2.[place] [phone] Ut dical NAL 059 [facility] 2021-02-15 2021-02-15 Iron Miner Farnaz, Adc Lab Main [facility] 1.2.8 40.114 [id number] Univers 09:47:39 10:02:39 Visit Sy [place] ARANDA 350.1.13.10 ity [facility] 4.2.7.2.686 [place] [id number] Ut dical NAL 353 [facility] 2021-02-15 2021-02-15 [facility] [id number] Univers 09:45:00 09:45:00 [place] scotty o f [facility] 2021-02-15 2021-02-15 Outpatient R SY, [facility] [id number] Univers 09:45:00 09:45:00 [place] tylerjake o f [facility] 2021-02-15 2021-02-15 Orders Doctor JOHANN 1.2.840.114 [id number] Univers 00:00:00 00:00:00 Only Unassigned, MIKE 350.1.13.10 ity of [place] [facility] 4.2.7.2.686 Babak as [phone] [facility] 00[address] [place] 2021-02-15 2021-02-15 Telephone Sy [facility] 1.2.518.118 [id number] Univers 00:00:00 00:00:00 [place] ARANDA 350.1.13.10 ity of [place] 4.2.7.2.[place] [phone] Ut dical NAL 059 [facility] 2021-02-10 2021-02-10 Transition ALESIA Gamez 1.2.840.114 [id number] Univers 00:00:00 00:00:00 of Care Georgie MARIAY 350.1.13.10 it y of [place] 4.2.7.2.686 [place] [id number] [facility] 403 [place] 2021-02-04 2021-02-09 Inpatient X [facility] [id number] Univers 20:57:00 13:26:00 JENNIFER ity of [facility] 2021-02-04 2021-02-09 [facility] Jamie Deng [facility] 1.2.840.1 14 [id number] Univers 20:57:00 13:26:00 Encounter Amadeo Rao ARANDA 350.1.13.10 ity of [place] Jennifer [place] 4.2.7.2.686 [facility] [phone] [facility] 080 [place] 2021-01-02 2021-01-02 Iron Miner Farnaz, Andre Lab Main [facility] 1.2.8 40.114 [id number] Univers 11:35:12 11:50:12 Visit [place] Dan 350.1.13.10 ity of [place] 4.2.7.2.686 [place] Profess[place] [phone] Ut dical nal 353 [facility] 2021-01-02 2021-01-02 Outpatient R [facility] [id number] [facility] 11:45:00 11:45:00 [place] perez o [facility] 2021-01-02 2021-01-02 [facility] [id number] [facility] 11:45:00 11:45:00 [place] perez o [facility] 2021-01-02 2021-01-02 Orders Doctor JOHANN 1.2.840.114 [id number] Univers 00:00:00 00:00:00 Only Unassigned, MIKE 350.1.13.10 ity of [place] [facility] 4.2.7.2.686 Babak as [phone] [facility] 00[address] [place] 2021-01-02 2021-01-02 [facility]phone [facility] 1.2.624.468 [id number] Univers 00:00:00 00:00:00 [place] Aranda 350.1.13.10 ity of [place] 4.[place].2.[place] Profess[place] [phone] Ut dical nal 059 [facility] 2021-01-02 2021-01-02 [facility] 1.2.840.114 [id number] Univers 00:00:00 00:00:00 [place] Aranda 350.1.13.10 ity of [place] 4[place].7.2.[place] Profess[place] [phone] Ut dical nal 059 [facility] 2020-12-07 2020-12-07 Iron Miner Farnaz, Adc Lab Main [facility] 1.2.8 40.114 [id number] Univers 08:05:37 08:20:37 Visit [place] Dan 350.1.13.10 ity of [place] 4.2.7.2.686 [place] Profess[place] [id number] Ut dical nal 353 [facility] 2020-12-07 2020-12-07 Outpatient R SY, [facility] [id number] Univers 08:00:00 08:00:00 [place] perez o [facility] 2020-12-07 2020-12-07 Outpatient R SY, [facility] [id number] Univers 08:00:00 08:00:00 [place] perez o [facility] 2020-12-07 2020-12-07 Telephone Sy, [facility] 1.2.366.774 [id number] Univers 00:00:00 00:00:00 [place] Rosi 350.1.13.10 ity [facility] 4.2.7.2.[place] Profess[place] [phone] Ut dical [address] 2020-11-23 2020-11-23 Outpatient R SY, [facility] [id number] Univers 13:37:45 23:59:00 [place] perez o [facility] 2020-11-23 2020-11-23 Outpatient R SY, [facility] [id number] Univers 13:37:45 23:59:00 [place] perez o [facility] 2020-11-14 2020-11-14 Outpatient R SY, [facility] [id number] Univers 13:40:00 13:40:00 [place] perez o [facility] 2020-10-12 2020-10-12 Outpatient R SY, [facility] [id number] Univers 08:00:00 08:00:00 [place] perez o [facility] 2020-09-27 2020-09-27 Outpatient R SY, [facility] [id number] Univers 13:00:00 13:00:00 [place] scotty o [facility] 2020-09-22 2020-09-22 Outpatient R SY, [facility] [id number] Univers 09:30:00 09:30:00 [place] hayes [facility] 2020-09-07 2020-09-07 Outpatient R SY, [facility] [id number] Univers 08:45:00 08:45:00 [place] perez o alfonso [facility] 2020-08-19 2020-08-19 Outpatient R SY, [facility] [id number] Univers 08:45:00 08:45:00 [place] perez o [facility] 2020-08-15 2020-08-15 Outpatient R SY, [facility] [id number] Univers 10:45:00 10:45:00 [place] jimenes [facility] 2020-08-08 2020-08-08 Outpatient R SY, [facility] [id number] Univers 11:45:00 11:45:00 CATRINAZAHEER jimenes [facility] 2020-08-08 2020-08-08 Iron Miner Andre Osei [facility] 1.2.840.114 [id number] 11:14:44 11:29:44 Visit Lab Main [place] 350.1.13.10 [place] 4.2.7.2.686 Professio [phone] [facility] 353 [facility] 2020-08-08 2020-08-08 Orders Doctor JOHANN 1.2.840.114 [id number] 00:00:00 00:00:00 Only Unassigned, MIKE 350.1.13.10 [place] [facility] [id number] [facility] 2020-08-08 2020-08-08 Telephone [facility] 1.2.508.121 [id number] 00:00:00 00:00:00 [place] Aranda 350.1.13.10 [place] 4.2.7.2.686 Professio [phone] nal 059 [facility] 2020-07-25 2020-07-25 Telephone [facility] 1.2.975.000 [id number] 00:00:00 00:00:00 [place] Aranda 350.1.13.10 [place] 4.2.7.2.686 Professio [phone] nal 059 [facility] 2020-07-20 2020-07-20 [facility] [id number] Univers 11:45:00 11:45:00 CATRINAJUAN perez o [facility] 2020-07-20 2020-07-20 Iron Miner Farnaz [facility] 1.2.840.114 [id number] 10:37:03 10:52:03 Visit Lab Main [place] 350.1.13.10 [place] 4.2.7.2.686 Professio [phone] [address] 2020-07-20 2020-07-20 Orders Doctor JOHANN 1.2.840.114 [id number] 00:00:00 00:00:00 Only Unassigned, MIKE 350.1.13.10 [place] [facility] [id number] [facility] 2020-07-20 2020-07-20 Telephone [facility] 1.2.201.925 [id number] 00:00:00 00:00:00 Rogerjun [place] 350.1.13.10 [place] 4.2.7.2.686 Professio [phone] [address] 2020-07-13 2020-07-13 [facility] [id number] Univers 10:15:00 10:15:00 [place] jimenes [facility] 2020-07-13 2020-07-13 Iron Miner Farnaz [facility] 1.2.840.114 [id number] 09:23:20 09:38:20 Visit Lab Main [place] 350.1.13.10 [place] 4.2.7.2.686 Professio [phone] [address] 2020-07-13 2020-07-13 Telephone [facility] 1.2.444.550 [id number] 00:00:00 00:00:00 Qiamerjun [place] 350.1.13.10 [place] 4.2.7.2.686 Professio [phone] [address] 2020-06-19 2020-06-19 [address]816 [id number] 00:00:00 00:00:00 [place] 350.1.13.10 [place] 4.2.7.2.686 Professio [phone] [facility] 059 [facility] 2020-06-17 2020-06-17 Iron Miner Farnaz, [facility] 1.2.840.114 [id number] 09:22:55 09:37:55 Visit Lab Main [place] 350.1.13.10 [place] 4.2.7.2.686 Professio [phone] [facility] 353 [facility] 2020-06-17 2020-06-17 [facility] [id number] [facility] 09:30:00 09:30:00 JMAAICA perez o [facility] 2020-06-08 2020-06-08 Telephone [place] [id number] 00:00:00 00:00:00 [place] 350.1.13.10 [place] 4.2.7.2.686 Professio [phone] [address] 2020-06-07 2020-06-07 Iron Miner Farnaz, [facility] 1.2.840.114 [id number] 08:57:47 09:12:47 Visit Lab Main [place] 350.1.13.10 [place] 4.2.7.2.686 Professio [phone] [address] 2020-06-07 2020-06-07 [facility] [id number] Univers 09:00:00 09:00:00 [place] perez o [facility] 2020-05-23 2020-05-23 Outpatient [facility] [id number] Univers 09:15:00 09:15:00 [place] ity o [facility] 2020-05-16 2020-05-16 Outpatient [facility] [id number] Univers 11:30:00 11:30:00 [place] scotty o [facility] 2020-05-16 2020-05-16 Iron Miner Farnaz, [facility] 1.2.840.114 [id number] 11:09:17 11:24:17 Visit Lab Main [place] 350.1.13.10 [place] 4.2.7.2.686 Professio [phone] [address] 2020-05-16 2020-05-16 Orders Doctor JOHANN 1.2.840.114 [id number] 00:00:00 00:00:00 Only Unassigned, MIKE 350.1.13.10 [place] [facility] 4.2.7.2.686 [id number] 2020-05-16 2020-05-16 Telephone [facility] [id number] 00:00:00 00:00:00 [place] Ar[place] [id number] [place] 4.2.7.2.686 Professio [phone] [address] 2020-05-11 2020-05-11 [employer] Farnaz [facility] 1.2.840.114 [id number] 09:25:07 09:40:07 Visit Lab [facility] [place] 350.1.13.10 [place] 4.2.7.2.686 Professio [phone] [address] 2020-05-11 2020-05-11 [facility] [id number] [employer] 09:30:00 09:30:00 SENDIL jake [facility] 2020-05-11 2020-05-11 Telephone [facility] [id number] 00:00:00 00:00:00 [place] Ar[place] 350.1.13.10 [place] 4.2.7.2.686 Professio [phone] [address] 2020-05-11 2020-05-11 Telephone [facility] [id number] 00:00:00 00:00:00 [place] Aranda 350.1.13.10 [place] 4.2.7.2.686 Professio [phone] [address] 2020-05-04 2020-05-04 Telephone [facility] [id number] 00:00:00 00:00:00 [place] 350.1.13.10 [place] 4.2.7.2.686 Professio [phone] nal 059 [facility] 2020-05-03 2020-05-03 [facility] [id number] [facility] 11:30:00 11:30:00 [place] scotty o f [facility] 2020-05-03 2020-05-03 [employer] Farnaz [facility] 1.2.840.114 [id number] 10:05:00 10:20:00 Visit Lab [facility] [place] 350.1.13.10 [place] 4.2.7.2.686 Professio [phone] [address] 2020-05-03 2020-05-03 Orders Doctor JOHANN 1.2.840.114 [id number] 00:00:00 00:00:00 Only Unassigned, MIKE 350.1.13.10 [employer] [facility] 4.2.7.2.686 [id number] 2020-04-27 2020-04-27 [employer] Farnaz [facility] 1.2.840.114 [id number] 08:24:03 08:39:03 Visit Lab [facility] [place] 350.1.13.10 [place] 4.2.7.2.686 Professio [phone] [address] 2020-04-27 2020-04-27 [id number] Univers 08:30:00 08:30:00 [place] scotty o [facility] 2020-04-27 2020-04-27 [id number] 00:00:00 00:00:00 [place]rin[place]zaheer [place] 350.1.13.10 [place] 4.2.7.2.686 Professio [phone] [address] 2020-04-20 2020-04-20 Refill [facility] [id number] 00:00:00 00:00:00 Catrinamerzaheer [place] 350.1.13.10 [place] 4.2.7.2.686 Professio [id number] [address] 2020-04-01 2020-04-01 Outpatient R IZQUIERDO, [facility] [id number] Univers 10:15:00 10:15:00 NICK perez [facility] 2020-03-29 2020-03-29 Office Sy, [facility] [id number] 14:32:40 15:25:41 Visit [place] Aranda 350.1.13.10 Mariaelena 4.2.7.2.686 Professio [phone] [facility] [address] [place] [address] 2020-03-29 2020-03-29 Outpatient R SY, [facility] [id number] Univers 14:40:00 14:40:00 [place] jimenes [facility] 2020-03-22 2020-03-22 Outpatient R SY, [facility] [id number] Univers 15:30:00 15:30:00 [place] jimenes [facility] 2020-03-15 2020-03-15 Outpatient R SY, [facility] [id number] Univers 11:15:00 11:15:00 [place] jimenes [facility] 2020-02-24 2020-02-24 Outpatient R SY, [facility] [id number] Univers 08:40:00 08:40:00 [place] jimenes [facility] 2020-02-17 2020-02-17 Outpatient R SY, [facility] [id number] Univers 09:15:00 09:15:00 [place] jimenes [facility] 2020-01-11 2020-01-11 Outpatient R SY, [facility] [id number] Univers 12:45:00 12:45:00 [place] jimenes [facility] 2019-12-17 2019-12-17 Outpatient R SY, [facility] [id number] Univers 11:00:00 11:00:00 [place] jimenes [facility] 2019-11-26 2019-11-26 Outpatient R SY, [facility] [id number] Univers 12:45:00 12:45:00 [place] perez o [facility] 2019-10-30 2019-10-30 Outpatient R RADIOLOGY [facility] [id number] Univers 00:00:00 00:00:00 [facility] 2019-10-20 2019-10-20 Outpatient R ALICJA MCDERMOTT [facility] [id number] Univers 09:30:00 09:30:00 [facility] 2019-09-30 2019-09-30 Outpatient R SY, [facility] [id number] Univers 08:30:00 08:30:00 [facility] 2019-09-08 2019-09-08 Outpatient R SY, [facility] [id number] Univers 15:20:00 15:20:00 [facility] 2019-09-03 2019-09-03 Outpatient R SY, [facility] [id number] Univers 09:00:00 09:00:00 [facility] 2019-07-24 2019-07-24 Outpatient R SY, [facility] [id number] Univers 11:45:00 11:45:00 [facility] 2019-06-22 2019-06-22 Outpatient R SY, [facility] [id number] Univers 13:30:00 13:30:00 [facility] Results Test Description Test Time Test Comments Results Result Comments Source TROPONIN I 2023-02-02 18:34:44 Test Item Value Reference Range Interpretation Comme nts TROPONIN I (test code = 6738199548) 0.009 ng/mL <=0.034 ROBERT (test code = ROBERT) Reference (Normal) Range (defined by the 99th percentile reference [...] patient's use of biotin. Lab Interpretation (test code = Normal 91864-5) [id number] 18:32:43 Test Item Value Reference Range Interpretation Comments NT-proBNP (test code = 2270 pg/mL <=125 H 34874-3) ROBERT (test code = ROBERT) Positive: Heart Failure Likely Lab Interpretation (test Abnormal code = 82151-5) [facility] 18:17:44 Test Item Value Reference Range Interpretation Comments MAGNESIUM (test code = 6450624313) 1.7 mg/dL 1.7-2.4 Lab Interpretation (test code = Normal 45395-8) [facility]. METABOLIC PANEL (74691)2023-02-02 18:17:23 Test Item Value Reference Range Interpretation Comments NA (test code = 138 mmol/L 135-145 6253100246) K (test code = 3.7 mmol/L 3.5-5.0 7277207576) CL (test code = 101 mmol/L 98-108 5366080698) CO2 TOTAL (test code = 28 mmol/L 23-31 0010088717) AGAP (test code = 9 2-16 9196552365) BUN (test code = 17 mg/dL 7-23 0175254093) GLUCOSE (test code = 123 mg/dL 70-110 H 2407977704) CREATININE (test code = 1.15 mg/dL 0.50-1.04 H 8513069457) TOTAL BILI (test code = 0.9 mg/dL 0.1-1.6 5873137620) CALCIUM (test code = 9.0 mg/dL 8.6-10.6 4493308932) T PROTEIN (test code = 7.1 g/dL 6.3-8.2 2268602394) ALBUMIN (test code = 4.3 g/dL 3.5-5.0 1132444323) ALK PHOS (test code = 67 U/L 34-122 1844035157) ALTv (test code = 34 U/L 5-35 1742-6) AST(SGOT) (test code = 37 U/L 13-40 9225293067) eGFR (test code = 46.8 mL/min/1.73m2 8646043609) ROBERT (test code = ROBERT) Association of [...] tests). Lab Interpretation Abnormal (test code = 50458-8) [facility]AT[facility] [id number] 18:17:03 Test Item Value Reference Range Interpretation Comments CK (test code = 9903913281) 219 U/L 33-194 H Lab Interpretation (test code = Abnormal 60841-6) [facility] / [id number] 18:15:22 Test Item Value Reference Range Interpretation Comments PROTIME PATIENT (test 66.3 See_Comment H [Auto mated message] code = 5964-2) The system [employer] generated this result transmitted ref erence range: 12.0 - 1 4.7 Seconds. The reference range was not used to int erpret this result as normal/abnormal . INR (test code = 6301-6) 7.9 HH Nor mal INR <1.1; Warfarin Therap eutic range 2.0 to 3. 0 or 2.5 to 3.5, dep ending upon the indica tions. Lab Interpretation (test Abnormal code = 22925-8) [facility] THRM[facility] [id number] 18:06:03 Test Item Value Reference Range Interpretation Comments APTT Patient (test 73 See_Comment H [Automat ed code = 3173-2) message] The system which generated this result transmitted reference range : 23 - 38 Seconds . The reference range was not used to interpr et this result as normal/abnormal . ROBERT (test code = ROBERT) The [facility] patient population mean normal value for aPTT is 30 seconds. Lab Interpretation Abnormal (test code = 70476-8) [facility] WITH [id number] 17:55:41 Test Item Value Reference Range Interpretation Comments WBC (test code = 7.02 See_Comment [Automated 6690-2) message] The sy stem which generated this result transmitted reference range : 4.30 - 11.10 10*3/?L. The reference range was not used to interpret this result as normal/abnormal . RBC (test code = 2.83 See_Comment L [Automated 789-8) message] The sy stem which generated this result transmitted reference range : 3.93 - 5.25 10*6/?L. The reference range was not used to interpret this result as normal/abnormal . HGB (test code = 9.2 g/dL 11.6-15.0 L 718-7) HCT (test code = 29.2 % 35.7-45.2 L 4544-3) MCV (test code = 103.2 fL 80.6-95.5 H 787-2) MCH (test code = 32.5 pg 25.9-32.8 785-6) MCHC (test code = 31.5 g/dL 31.6-35.1 L 786-4) RDW-SD (test code = 64.0 fL 39.0-49.9 H 19811-9) RDW-CV (test code = 16.5 % 12.0-15.5 H 788-0) PLT (test code = 173 See_Comment [Automated 777-3) message] The sy stem which generated this result transmitted reference range : 166 - 358 10*3/ ?L. The reference r tali was not used to interpret this result as normal/abnormal . MPV (test code = 11.5 fL 9.5-12.9 50778-6) NRBC/100 WBC (test 0.0 See_Comment [Automat ed code = 0734785867) message] The system which generated this result transmitted reference range : 0.0 - 10.0 /100 WBCs. The refer ence range was not u sed to interpret th is result as normal/abnormal . NRBC x10^3 (test code See_Comment [Auto mated = 8884172972) message] The s ystem which generated this result transmitted reference range : 10*3/?L. The reference range was not used to interpret this result as normal/abnormal . GRAN MAT (NEUT) % 65.1 % (test code = 770-8) IMM GRAN % (test code 0.30 % = 5588888622) LYMPH % (test code = 20.5 % 736-9) MONO % (test code = 11.1 % 5905-5) EOS % (test code = 2.3 % 713-8) BASO % (test code = 0.7 % 706-2) GRAN MAT x10^3(ANC) 4.57 10*3/uL 1.88-7.09 (test code = 7528485832) IMM GRAN x10^3 (test 0.00-0.06 code = 6838392011) LYMPH x10^3 (test code 1.44 10*3/uL 1.32-3.29 = 731-0) MONO x10^3 (test code 0.78 10*3/uL 0.33-0.92 = 742-7) EOS x10^3 (test code = 0.16 10*3/uL 0.03-0.39 711-2) BASO x10^3 (test code 0.05 10*3/uL 0.01-0.07 = 704-7) Lab Interpretation Abnormal (test code = 82191-5) [facility]AT[facility] FUN[facility] PAN[facility] (42570) (ALB,T.PRO,BILI T,BU/BC,ALT,AST,ALK PHOS)2023-01-11 17:38:51 Test Item Value Reference Range Interpretation Comments TOTAL BILI (test code = 1026369018) 0.5 mg/dL 0.1-1.1 BILI UNCON (test code = 5558337742) 0.6 mg/dL 0.1-1.1 BILI CONJ (test code = 9139840807) 0.0 mg/dL 0.0-0.3 T PROTEIN (test code = 0967380457) 6.7 g/dL 6.3-8.2 ALBUMIN (test code = 7766241600) 4.1 g/dL 3.5-5.0 ALK PHOS (test code = 4260658190) 52 U/L 34-122 ALTv (test code = 1742-6) 20 U/L 5-35 AST(SGOT) (test code = 8512863424) 36 U/L 13-40 Lab Interpretation (test code = Normal 73934-3) [facility] METABOLIC PANEL (NA, K, CL, CO2, GLUCOSE, BUN, CREATININE, CA)2023-01-11 10:18:53 Test Item Value Reference Range Interpretation Comments NA (test code = 135 mmol/L 135-145 9188439322) K (test code = 4.6 mmol/L 3.5-5.0 1641274333) CL (test code = 96 mmol/L 98-108 L 5517466486) CO2 TOTAL (test code = 32 mmol/L 23-31 H 3125978336) AGAP (test code = 7 2-16 7539019246) BUN (test code = 29 mg/dL 7-23 H 7328649060) GLUCOSE (test code = 92 mg/dL 70-110 2365959127) CREATININE (test code = 1.02 mg/dL 0.50-1.04 8558629977) CALCIUM (test code = 9.4 mg/dL 8.6-10.6 4209835819) eGFR (test code = 53.7 mL/min/1.73m2 7172391648) ROBERT (test code = ROBERT) Association of [...] tests). Lab Interpretation Abnormal (test code = 79562-2) [facility]2023-09-29 10:18:53 Test Item Value Reference Range Interpretation Comments MAGNESIUM (test code = 2129106333) 1.8 mg/dL 1.7-2.4 Lab Interpretation (test code = Normal 29979-4) [facility] HospitalProthrombin Time / [id number] 09:53:12 Test Item Value Reference Range Interpretation Comments PROTIME PATIENT (test 32.2 See_Comment H [Auto mated message] code = 5964-2) The system Likelii ich generated this result transmitted ref erence range: 10.1 - 1 2.6 Seconds. The reference range was not used to int erpret this result as normal/abnormal . INR (test code = 6301-6) 2.7 Nor mal INR <1.1; Warfarin Therap eutic range 2.0 to 3. 0 or 2.5 to 3.5, dep ending upon the indica tions. Lab Interpretation (test Abnormal code = 50802-5) [facility] WITH [id number] 09:49:29 Test Item Value Reference Range Interpretation Comments WBC (test code = 6.65 See_Comment [Automated 4590-2) message] The sy stem which generated this result transmitted reference range : 4.30 - 11.10 10*3/?L. The reference range was not used to interpret this result as normal/abnormal . RBC (test code = 3.63 See_Comment L [Automated 789-8) message] The sy stem which generated this result transmitted reference range : 3.93 - 5.25 10*6/?L. The reference range was not used to interpret this result as normal/abnormal . HGB (test code = 11.4 g/dL 11.6-15.0 L 718-7) HCT (test code = 35.7 % 35.7-45.2 4544-3) MCV (test code = 98.3 fL 80.6-95.5 H 787-2) MCH (test code = 31.4 pg 25.9-32.8 785-6) MCHC (test code = 31.9 g/dL 31.6-35.1 786-4) RDW-SD (test code = 65.8 fL 39.0-49.9 H 80023-9) RDW-CV (test code = 18.0 % 12.0-15.5 H 788-0) PLT (test code = 180 See_Comment [Automated 777-3) message] The sy stem which generated this result transmitted reference range : 166 - 358 10*3/ ?L. The reference r tali was not used to interpret this result as normal/abnormal . MPV (test code = 10.6 fL 9.5-12.9 25895-8) NRBC/100 WBC (test 0.0 See_Comment [Automat ed code = 3921893508) message] The system which generated this result transmitted reference range : 0.0 - 10.0 /100 WBCs. The refer ence range was not u sed to interpret th is result as normal/abnormal . NRBC x10^3 (test code See_Comment [Auto mated = 2644639096) message] The s ystem which generated this result transmitted reference range : 10*3/?L. The reference range was not used to interpret this result as normal/abnormal . GRAN MAT (NEUT) % 60.4 % (test code = 770-8) IMM GRAN % (test code 0.20 % = 7059095067) LYMPH % (test code = 26.9 % 736-9) MONO % (test code = 8.4 % 5905-5) EOS % (test code = 3.3 % 713-8) BASO % (test code = 0.8 % 706-2) GRAN MAT x10^3(ANC) 4.02 10*3/uL 1.88-7.09 (test code = 4011733879) IMM GRAN x10^3 (test 0.00-0.06 code = 6553712926) LYMPH x10^3 (test code 1.79 10*3/uL 1.32-3.29 = 731-0) MONO x10^3 (test code 0.56 10*3/uL 0.33-0.92 = 742-7) EOS x10^3 (test code = 0.22 10*3/uL 0.03-0.39 711-2) BASO x10^3 (test code 0.05 10*3/uL 0.01-0.07 = 704-7) Lab Interpretation Abnormal (test code = 24722-1) [facility] Hospital[facility] Time / [id number] 10:07:42 Test Item Value Reference Range Interpretation Comments PROTIME PATIENT (test 38.4 See_Comment H [Auto mated message] code = 5964-2) The system [employer] generated this result transmitted ref erence range: 10.1 - 1 2.6 Seconds. The reference range was not used to int erpret this result as normal/abnormal . INR (test code = 6301-6) 3.3 Nor mal INR <1.1; Warfarin Therap eutic range 2.0 to 3. 0 or 2.5 to 3.5, dep ending upon the indica tions. Lab Interpretation (test Abnormal code = 96531-4) [facility] HospitalBasi Metabolic Panel (NA, K, CL, CO2, GLUCOSE, BUN, CREATININE, CA)2023-01-10 10:06:26 Test Item Value Reference Range Interpretation Comments NA (test code = 137 mmol/L 135-145 9944689556) K (test code = 5.0 mmol/L 3.5-5.0 7829952795) CL (test code = 97 mmol/L 98-108 L 5451893408) CO2 TOTAL (test code = 32 mmol/L 23-31 H 9251056288) AGAP (test code = 8 2-16 9184639492) BUN (test code = 24 mg/dL 7-23 H 1329041793) GLUCOSE (test code = 91 mg/dL 70-110 9204929413) CREATININE (test code = 0.95 mg/dL 0.50-1.04 7570223428) CALCIUM (test code = 9.9 mg/dL 8.6-10.6 9254367839) eGFR (test code = 58.3 mL/min/1.73m2 1187118622) ROBERT (test code = ROBERT) Association of [...] tests). Lab Interpretation Abnormal (test code = 78235-5) [facility] HospitalMagnesium [id number] 10:06:26 Test Item Value Reference Range Interpretation Comments MAGNESIUM (test code = 5852564604) 2.0 mg/dL 1.7-2.4 Lab Interpretation (test code = Normal 97144-2) [facility] with [id number] 09:55:42 Test Item Value Reference Range Interpretation Comments WBC (test code = 6.25 See_Comment [Automated 6690-2) message] The sy stem which generated this result transmitted reference range : 4.30 - 11.10 10*3/?L. The reference range was not used to interpret this result as normal/abnormal . RBC (test code = 3.77 See_Comment L [Automated 789-8) message] The sy stem which generated this result transmitted reference range : 3.93 - 5.25 10*6/?L. The reference range was not used to interpret this result as normal/abnormal . HGB (test code = 11.6 g/dL 11.6-15.0 718-7) HCT (test code = 36.5 % 35.7-45.2 4544-3) MCV (test code = 96.8 fL 80.6-95.5 H 787-2) MCH (test code = 30.8 pg 25.9-32.8 785-6) MCHC (test code = 31.8 g/dL 31.6-35.1 786-4) RDW-SD (test code = 66.2 fL 39.0-49.9 H 18885-3) RDW-CV (test code = 18.6 % 12.0-15.5 H 788-0) PLT (test code = 191 See_Comment [Automated 777-3) message] The sy stem which generated this result transmitted reference range : 166 - 358 10*3/ ?L. The reference r tali was not used to interpret this result as normal/abnormal . MPV (test code = 10.2 fL 9.5-12.9 77757-2) NRBC/100 WBC (test 0.0 See_Comment [Automat ed code = 6302360544) message] The system which generated this result transmitted reference range : 0.0 - 10.0 /100 WBCs. The refer ence range was not u sed to interpret th is result as normal/abnormal . NRBC x10^3 (test code See_Comment [Auto mated = 0920594097) message] The s ystem which generated this result transmitted reference range : 10*3/?L. The reference range was not used to interpret this result as normal/abnormal . GRAN MAT (NEUT) % 54.3 % (test code = 770-8) IMM GRAN % (test code 0.20 % = 3959725689) LYMPH % (test code = 30.9 % 736-9) MONO % (test code = 9.3 % 5905-5) EOS % (test code = 4.5 % 713-8) BASO % (test code = 0.8 % 706-2) GRAN MAT x10^3(ANC) 3.40 10*3/uL 1.88-7.09 (test code = 9428032135) IMM GRAN x10^3 (test 0.00-0.06 code = 0988093235) LYMPH x10^3 (test code 1.93 10*3/uL 1.32-3.29 = 731-0) MONO x10^3 (test code 0.58 10*3/uL 0.33-0.92 = 742-7) EOS x10^3 (test code = 0.28 10*3/uL 0.03-0.39 711-2) BASO x10^3 (test code 0.05 10*3/uL 0.01-0.07 = 704-7) Lab Interpretation Abnormal (test code = 34989-3) [facility]TH[facility] STIM[facility]ATING [id number] 14:28:03 Test Item Value Reference Range Interpretation Comments TSH (test code = 0.58 See_Comment Biotin has been 1731275059) reported to cau se a negative bias, interpret resul ts relative to pat lazarus's use of biotin. [Automated mess age] The system Likel[employer] generated this result transmitted ref erence range: 0.45 - 4 .70 mIU/L. The refe rence range was not u sed to interpret this result as normal/abnor mal. Lab Interpretation (test Normal code = 28567-3) [facility] HospitalProthrombin Time / [id number] 11:19:12 Test Item Value Reference Range Interpretation Comments PROTIME PATIENT (test 27.0 See_Comment H [Auto mated message] code = 5964-2) The system Likelii ich generated this result transmitted ref erence range: 12.0 - 1 4.7 Seconds. The reference range was not used to int erpret this result as normal/abnormal . INR (test code = 6301-6) 2.6 Nor mal INR <1.1; Warfarin Therap eutic range 2.0 to 3. 0 or 2.5 to 3.5, dep ending upon the indica tions. Lab Interpretation (test Abnormal code = 87498-8) [facility] with [id number] 11:18:11 Test Item Value Reference Range Interpretation Comments WBC (test code = 4.52 See_Comment [Automated 6690-2) message] The sy stem which generated this result transmitted reference range : 4.30 - 11.10 10*3/?L. The reference range was not used to interpret this result as normal/abnormal . RBC (test code = 3.78 See_Comment L [Automated 789-8) message] The sy stem which generated this result transmitted reference range : 3.93 - 5.25 10*6/?L. The reference range was not used to interpret this result as normal/abnormal . HGB (test code = 11.8 g/dL 11.6-15.0 718-7) HCT (test code = 36.9 % 35.7-45.2 4544-3) MCV (test code = 97.6 fL 80.6-95.5 H 787-2) MCH (test code = 31.2 pg 25.9-32.8 785-6) MCHC (test code = 32.0 g/dL 31.6-35.1 786-4) RDW-SD (test code = 65.5 fL 39.0-49.9 H 61635-3) RDW-CV (test code = 18.1 % 12.0-15.5 H 788-0) PLT (test code = 182 See_Comment [Automated 777-3) message] The sy stem which generated this result transmitted reference range : 166 - 358 10*3/ ?L. The reference r tali was not used to interpret this result as normal/abnormal . MPV (test code = 11.1 fL 9.5-12.9 14908-9) NRBC/100 WBC (test 0.0 See_Comment [Automat ed code = 5394308603) message] The system which generated this result transmitted reference range : 0.0 - 10.0 /100 WBCs. The refer ence range was not u sed to interpret th is result as normal/abnormal . NRBC x10^3 (test code See_Comment [Auto mated = 6555618231) message] The s ystem which generated this result transmitted reference range : 10*3/?L. The reference range was not used to interpret this result as normal/abnormal . GRAN MAT (NEUT) % 59.0 % (test code = 770-8) IMM GRAN % (test code 0.20 % = 1749902512) LYMPH % (test code = 25.4 % 736-9) MONO % (test code = 10.4 % 5905-5) EOS % (test code = 3.5 % 713-8) BASO % (test code = 1.5 % 706-2) GRAN MAT x10^3(ANC) 2.66 10*3/uL 1.88-7.09 (test code = 4647258110) IMM GRAN x10^3 (test 0.00-0.06 code = 0933786418) LYMPH x10^3 (test code 1.15 10*3/uL 1.32-3.29 L = 731-0) MONO x10^3 (test code 0.47 10*3/uL 0.33-0.92 = 742-7) EOS x10^3 (test code = 0.16 10*3/uL 0.03-0.39 711-2) BASO x10^3 (test code 0.07 10*3/uL 0.01-0.07 = 704-7) Lab Interpretation Abnormal (test code = 99804-4) [facility] HospitalJAILENE [id number] 10:50:07 Test Item Value Reference Range Interpretation Comments TROPONIN I (test code = 0.009 ng/mL <=0.034 4129965748) ROBERT (test code = ROBERT) Reference (Normal) Range (defined by the 99th percentile reference [...] biotin. Lab Interpretation Normal (test code = 20552-8) [facility]ACT[facility] THRMPLAS [id number] 00:33:16 Test Item Value Reference Range Interpretation Comments APTT Patient (test 37 See_Comment [Automat ed code = 3173-2) message] The system which generated this result transmitted reference range : 23 - 38 Seconds . The reference range was not used to interpr et this result as normal/abnormal . ROBERT (test code = ROBERT) The [facility] patient population mean normal value for aPTT is 30 seconds. Lab Interpretation Normal (test code = 78167-7) [facility] HospitalPROTHROMBIN TIME / [id number] 23:46:34 Test Item Value Reference Range Interpretation Comments PROTIME PATIENT (test 28.8 See_Comment H [Auto mated message] code = 5964-2) The system wh ich generated this result transmitted ref erence range: 12.0 - 1 4.7 Seconds. The reference range was not used to int erpret this result as normal/abnormal . INR (test code = 6301-6) 2.8 Nor mal INR <1.1; Warfarin Therap eutic range 2.0 to 3. 0 or 2.5 to 3.5, dep ending upon the indica tions. Lab Interpretation (test Abnormal code = 81305-5) [facility] HospitalTROPONIN [id number] 23:45:54 Test Item Value Reference Range Interpretation Comments TROPONIN I (test code = 0.008 ng/mL <=0.034 2712016844) ROBERT (test code = ROBERT) Reference (Normal) Range (defined by the 99th percentile reference [...] biotin. Lab Interpretation Normal (test code = 92685-1) [facility] Hospital[facility]MINAL [id number] 23:43:34 Test Item Value Reference Range Interpretation Comments NT-proBNP (test code = 1640 pg/mL <=125 H 34303-2) ROBERT (test code = ROBERT) Positive: Heart Failure Likely Lab Interpretation (test Abnormal code = 77153-6) [facility]MAG[facility]IUM2023-09-24 23:34:12 Test Item Value Reference Range Interpretation Comments MAGNESIUM (test code = 0735089828) 1.9 mg/dL 1.7-2.4 Lab Interpretation (test code = Normal 81752-4) [facility] HospitalCOMP. METABOLIC PANEL (40124)2023-01-06 23:33:52 Test Item Value Reference Range Interpretation Comments NA (test code = 142 mmol/L 135-145 3919223402) K (test code = 4.1 mmol/L 3.5-5.0 5826257080) CL (test code = 107 mmol/L 98-108 5630007334) CO2 TOTAL (test code = 26 mmol/L 23-31 2160983432) AGAP (test code = 9 2-16 9698046045) BUN (test code = 8 mg/dL 7-23 8311368961) GLUCOSE (test code = 119 mg/dL 70-110 H 3908665524) CREATININE (test code = 0.84 mg/dL 0.50-1.04 2997247326) TOTAL BILI (test code = 0.4 mg/dL 0.1-1.5 4041552385) CALCIUM (test code = 9.0 mg/dL 8.6-10.6 0917257519) T PROTEIN (test code = 7.1 g/dL 6.3-8.2 2849493410) ALBUMIN (test code = 4.3 g/dL 3.5-5.0 6705703721) ALK PHOS (test code = 72 U/L 34-122 3486288543) ALTv (test code = 29 U/L 5-35 1742-6) AST(SGOT) (test code = 41 U/L 13-40 H [id number]) eGFR (test code = 67.2 mL/min/1.73m2 1754435191) ROBERT (test code = ROBERT) Association of [...] tests). Lab Interpretation Abnormal (test code = 11471-0) [facility] Test Item Value Reference Range Interpretation Comments LIPASE (test code = 3795152112) 93 U/L 0-220 Lab Interpretation (test code = Normal 29980-2) [id number] 23:20:30 Test Item Value Reference Range Interpretation Comments WBC (test code = 4.99 See_Comment [Automated 3990-2) message] The sy stem which generated this result transmitted reference range : 4.30 - 11.10 10*3/?L. The reference range was not used to interpret this result as normal/abnormal . RBC (test code = 3.58 See_Comment L [Automated 789-8) message] The sy stem which generated this result transmitted reference range : 3.93 - 5.25 10*6/?L. The reference range was not used to interpret this result as normal/abnormal . HGB (test code = 11.2 g/dL 11.6-15.0 L 718-7) HCT (test code = 35.2 % 35.7-45.2 L 4544-3) MCV (test code = 98.3 fL 80.6-95.5 H 787-2) MCH (test code = 31.3 pg 25.9-32.8 785-6) MCHC (test code = 31.8 g/dL 31.6-35.1 786-4) RDW-SD (test code = 66.8 fL 39.0-49.9 H 56871-2) RDW-CV (test code = 18.2 % 12.0-15.5 H 788-0) PLT (test code = 176 See_Comment [Automated 777-3) message] The sy stem which generated this result transmitted reference range : 166 - 358 10*3/ ?L. The reference r tali was not used to interpret this result as normal/abnormal . MPV (test code = 10.8 fL 9.5-12.9 67877-9) NRBC/100 WBC (test 0.0 See_Comment [Automat ed code = 3685248682) message] The system which generated this result transmitted reference range : 0.0 - 10.0 /100 WBCs. The refer ence range was not u sed to interpret th is result as normal/abnormal . NRBC x10^3 (test code See_Comment [Auto mated = 5353655169) message] The s ystem which generated this result transmitted reference range : 10*3/?L. The reference range was not used to interpret this result as normal/abnormal . GRAN MAT (NEUT) % 61.3 % (test code = 770-8) IMM GRAN % (test code 0.40 % = 1006366865) LYMPH % (test code = 26.1 % 736-9) MONO % (test code = 9.2 % 5905-5) EOS % (test code = 2.0 % 713-8) BASO % (test code = 1.0 % 706-2) GRAN MAT x10^3(ANC) 3.06 10*3/uL 1.88-7.09 (test code = 5730950468) IMM GRAN x10^3 (test 0.00-0.06 code = 3165399492) LYMPH x10^3 (test code 1.30 10*3/uL 1.32-3.29 L = 731-0) MONO x10^3 (test code 0.46 10*3/uL 0.33-0.92 = 742-7) EOS x10^3 (test code = 0.10 10*3/uL 0.03-0.39 711-2) BASO x10^3 (test code 0.05 10*3/uL 0.01-0.07 = 704-7) Lab Interpretation Abnormal (test code = 68254-4) [facility] [id number] 15:08:40 Test Item Value Reference Range Interpretation Comments PROTIME PATIENT (test 24.8 See_Comment H [Auto mated message] code = 5964-2) The system [employer] generated this result transmitted ref erence range: 12.0 - 1 4.7 Seconds. The reference range was not used to int erpret this result as normal/abnormal . INR (test code = 6301-6) 2.3 Nor mal INR <1.1; Warfarin Therap eutic range 2.0 to 3. 0 or 2.5 to 3.5, dep ending upon the indica tions. Lab Interpretation (test Abnormal code = 34419-1) [facility] [id number] 15:08:40 Test Item Value Reference Range Interpretation Comments PROTIME PATIENT (test 24.8 See_Comment H [Auto mated message] code = 5964-2) The system [employer] generated this result transmitted ref erence range: 12.0 - 1 4.7 Seconds. The reference range was not used to int erpret this result as normal/abnormal . INR (test code = 6301-6) 2.3 Nor mal INR <1.1; Warfarin Therap eutic range 2.0 to 3. 0 or 2.5 to 3.5, dep ending upon the indica tions. Lab Interpretation (test Abnormal code = 15061-9) [facility] [id number] 15:08:40 Test Item Value Reference Range Interpretation Comments PROTIME PATIENT (test 24.8 See_Comment H [Auto mated message] code = 5964-2) The system [employer] generated this result transmitted ref erence range: 12.0 - 1 4.7 Seconds. The reference range was not used to int erpret this result as normal/abnormal . INR (test code = 6301-6) 2.3 Nor mal INR <1.1; Warfarin Therap eutic range 2.0 to 3. 0 or 2.5 to 3.5, dep ending upon the indica tions. Lab Interpretation (test Abnormal code = 93288-9) [facility] [id number] 18:32:10 Test Item Value Reference Range Interpretation Comments PROTIME PATIENT (test 24.4 See_Comment H [Auto mated message] code = 5964-2) The system [employer] generated this result transmitted ref erence range: 12.0 - 1 4.7 Seconds. The reference range was not used to int erpret this result as normal/abnormal . INR (test code = 6301-6) 2.2 Nor mal INR <1.1; Warfarin Therap eutic range 2.0 to 3. 0 or 2.5 to 3.5, dep ending upon the indica tions. Lab Interpretation (test Abnormal code = 12542-0) [facility] 22:45:29 Test Item Value Reference Range Interpretation Comments Height (test code = 63 in 5317715579) Weight (test code = 102 lbs 8804466316) Systolic BP (test 123 mmHg code = 1002881060) Diastolic BP (test 64 mmHg code = 5667695373) Heart Rate (test code 61 bpm = 8063889334) LVOT peak amrita (test 114.0 cm/s code = 0573267011) LVOT mn grad (test 3.0 mmHg code = 0984545081) Aortic valve mean 209.0 cm/s velocity (test code = 4081438184) Ao peak amrita (test 333.0 cm/s code = 7575836310) Ao VTI (test code = 71.7 cm 6476630328) AV LVOT peak gradient 5.2 mmHg (test code = 2200529651) LVOT peak VTI (test 29.0 cm code = 6022857862) AV Doppler amrita index 0.34 ratio VTI (test code = 0707638475) LV V1 mean (test code 82.60 cm/s = 8616249909) Ao max PG (test code 44.40 mm[Hg] = 8785903986) AV peak gradient 44.4 mmHg (test code = 4097292313) AV mean gradient 21.0 mmHg (test code = 9670186869) Radiology Study observation (narrative) (test code = 94376-9) ROBERT (test code = ROBERT) ?Aortic?Valve: Mechanical [...] The probe was inserted by the machine operator helper. Probe in 0930. Probe out 0940. Moderate sedation was given. 4% Lidocaine was used for local oropharyngeal anesthesia. 1 mg of midazolam and 50 mcg of Fentanyl were administered during the study. There were no complications during the procedure. Based on abnormal findings of 2D echocardiogram, 3D was performed on an acquisition scanner for further assessment of the aortic valve. MR RN [facility] METABOLIC PANEL (NA, K, CL, CO2, GLUCOSE, BUN, CREATININE, CA)2022-06-11 09:30:25 Test Item Value Reference Range Interpretation Comments NA (test code = 137 mmol/L 135-145 6776815455) K (test code = 4.3 mmol/L 3.5-5.0 5398645430) CL (test code = 104 mmol/L 98-108 7907830424) CO2 TOTAL (test code = 30 mmol/L 23-31 8742322638) AGAP (test code = 3 2-16 5130062124) BUN (test code = 19 mg/dL 7-23 1932593791) GLUCOSE (test code = 102 mg/dL 70-110 8452051192) CREATININE (test code = 0.93 mg/dL 0.50-1.04 9671942056) CALCIUM (test code = 8.5 mg/dL 8.6-10.6 L 4469899113) eGFR (test code = 59.8 mL/min/1.73m2 4745589086) ROBERT (test code = ROBERT) Association of [...] tests). Lab Interpretation Abnormal (test code = 35085-0) [facility] 09:30:25 Test Item Value Reference Range Interpretation Comments MAGNESIUM (test code = 5612560267) 2.1 mg/dL 1.7-2.4 Lab Interpretation (test code = Normal 85577-6) [facility] / [id number] 09:18:08 Test Item Value Reference Range Interpretation Comments PROTIME PATIENT (test 19.8 See_Comment H [Auto mated message] code = 5964-2) The system [facility] generated this result transmitted ref erence range: 10.1 - 1 2.6 Seconds. The reference range was not used to int erpret this result as normal/abnormal . INR (test code = 6301-6) 1.8 Nor mal INR <1.1; Warfarin Therap eutic range 2.0 to 3. 0 or 2.5 to 3.5, dep ending upon the indica tions. Lab Interpretation (test Abnormal code = 03791-0) [facility] 09:18:08 Test Item Value Reference Range Interpretation Comments APTT Patient (test code 89 See_Comment H [Au tomated message] = 3173-2) The system [employer] generated this result transmitted ref erence range: 26 - 36 Seconds. The reference range was not used to int erpret this result as normal/abnormal . Lab Interpretation (test Abnormal code = 52316-2) [facility] 08:57:55 Test Item Value Reference Range Interpretation Comments MAGNESIUM (test code = 8904235284) 1.8 mg/dL 1.7-2.4 Lab Interpretation (test code = Normal 04118-2) [facility] (NA, K, CL, CO2, GLUCOSE, BUN, CREATININE, CA)2022-06-10 08:57:55 Test Item Value Reference Range Interpretation Comments NA (test code = 137 mmol/L 135-145 9572903153) K (test code = 4.0 mmol/L 3.5-5.0 0296314179) CL (test code = 100 mmol/L 98-108 6089294467) CO2 TOTAL (test code = 32 mmol/L 23-31 H 5443100855) AGAP (test code = 5 2-16 3318699465) BUN (test code = 24 mg/dL 7-23 H 1754923275) GLUCOSE (test code = 116 mg/dL 70-110 H 1425554668) CREATININE (test code = 1.00 mg/dL 0.50-1.04 2224437716) CALCIUM (test code = 9.1 mg/dL 8.6-10.6 5768782221) eGFR (test code = 55.0 mL/min/1.73m2 9521068523) ROBERT (test code = ROBERT) Association of [...] tests). Lab Interpretation Abnormal (test code = 08707-0) [facility] / [id number] 08:46:38 Test Item Value Reference Range Interpretation Comments PROTIME PATIENT (test 17.4 See_Comment H [Auto mated message] code = 5964-2) The system [employer] generated this result transmitted ref erence range: 10.1 - 1 2.6 Seconds. The reference range was not used to int erpret this result as normal/abnormal . INR (test code = 6301-6) 1.6 Nor mal INR <1.1; Warfarin Therap eutic range 2.0 to 3. 0 or 2.5 to 3.5, dep ending upon the indica tions. Lab Interpretation (test Abnormal code = 16905-1) [facility] 08:46:38 Test Item Value Reference Range Interpretation Comments APTT Patient (test code 85 See_Comment H [Au tomated message] = 3173-2) The system [employer] generated this result transmitted ref erence range: 26 - 36 Seconds. The reference range was not used to int erpret this result as normal/abnormal . Lab Interpretation (test Abnormal code = 61109-0) [facility] WITH [id number] 08:39:15 Test Item Value Reference Range Interpretation Comments WBC (test code = 4.75 See_Comment [Automated 7290-2) message] The sy stem which generated this result transmitted reference range : 4.30 - 11.10 10*3/?L. The reference range was not used to interpret this result as normal/abnormal . RBC (test code = 3.55 See_Comment L [Automated 009-8) message] The sy stem which generated this [...] (test code = 58.1 fL 39.0-49.9 H 28381-1) RDW-CV (test code = 16.1 % 12.0-15.5 H 788-0) PLT (test code = 197 See_Comment [Automated 777-3) message] The sy stem which generated this result transmitted reference range : 166 - 358 10*3/ ?L. The reference r tali was not used to interpret this result as normal/abnormal . MPV (test code = 10.2 fL 9.5-12.9 35098-3) NRBC/100 WBC (test 0.0 See_Comment [Automat ed code = 3303690485) message] The system which generated this result transmitted reference range : 0.0 - 10.0 /100 WBCs. The refer ence range was not u sed to interpret th is result as normal/abnormal . NRBC x10^3 (test code See_Comment [Auto mated = 3707978911) message] The s ystem which generated this result transmitted reference range : 10*3/?L. The reference range was not used to interpret this result as normal/abnormal . GRAN MAT (NEUT) % 58.4 % (test code = 770-8) IMM GRAN % (test code 0.20 % = 2787928505) LYMPH % (test code = 24.2 % 736-9) MONO % (test code = 10.9 % 5905-5) EOS % (test code = 5.5 % 713-8) BASO % (test code = 0.8 % 706-2) GRAN MAT x10^3(ANC) 2.77 10*3/uL 1.88-7.09 (test code = 7752225207) IMM GRAN x10^3 (test 0.00-0.06 code = 7034921280) LYMPH x10^3 (test code 1.15 10*3/uL 1.32-3.29 L = 731-0) MONO x10^3 (test code 0.52 10*3/uL 0.33-0.92 = 742-7) EOS x10^3 (test code = 0.26 10*3/uL 0.03-0.39 711-2) BASO x10^3 (test code 0.04 10*3/uL 0.01-0.07 = 704-7) Lab Interpretation Abnormal (test code = 78276-4) [facility] 10:39:27 Test Item Value Reference Range Interpretation Comments MAGNESIUM (test code = 8137628387) 1.6 mg/dL 1.7-2.4 L Lab Interpretation (test code = Abnormal 75001-5) [facility] (NA, K, CL, CO2, GLUCOSE, BUN, CREATININE, CA)2022-06-09 10:39:27 Test Item Value Reference Range Interpretation Comments NA (test code = 139 mmol/L 135-145 5400318255) K (test code = 4.1 mmol/L 3.5-5.0 3025892258) CL (test code = 96 mmol/L 98-108 L 5981852804) CO2 TOTAL (test code = 36 mmol/L 23-31 H 2515907369) AGAP (test code = 7 2-16 5881097202) BUN (test code = 27 mg/dL 7-23 H 9746078612) GLUCOSE (test code = 116 mg/dL 70-110 H 3458182812) CREATININE (test code = 1.21 mg/dL 0.50-1.04 H 2614089291) CALCIUM (test code = 9.3 mg/dL 8.6-10.6 4575366660) eGFR (test code = 44.1 mL/min/1.73m2 9659287760) ROBERT (test code = ROBERT) Association of [...] tests). Lab Interpretation Abnormal (test code = 19159-1) [facility] / [id number] 10:26:27 Test Item Value Reference Range Interpretation Comments PROTIME PATIENT (test 18.7 See_Comment H [Auto mated message] code = 5964-2) The system [employer] generated this result transmitted ref erence range: 10.1 - 1 2.6 Seconds. The reference range was not used to int erpret this result as normal/abnormal . INR (test code = 6301-6) 1.7 Nor mal INR <1.1; Warfarin Therap eutic range 2.0 to 3. 0 or 2.5 to 3.5, dep ending upon the indica tions. Lab Interpretation (test Abnormal code = 58172-0) [facility] WITH [id number] 10:16:07 Test Item Value Reference Range Interpretation [...] (test code = 58.8 fL 39.0-49.9 H 18932-7) RDW-CV (test code = 16.3 % 12.0-15.5 H 788-0) PLT (test code = 244 See_Comment [Automated 777-3) message] The sy stem which generated this result transmitted reference range : 166 - 358 10*3/ ?L. The reference r tali was not used to interpret this result as normal/abnormal . MPV (test code = 10.1 fL 9.5-12.9 65417-2) NRBC/100 WBC (test 0.0 See_Comment [Automat ed code = 5776300614) message] The system which generated this result transmitted reference range : 0.0 - 10.0 /100 WBCs. The refer ence range was not u sed to interpret th is result as normal/abnormal . NRBC x10^3 (test code See_Comment [Auto mated = 8066630553) message] The s ystem which generated this result transmitted reference range : 10*3/?L. The reference range was not used to interpret this result as normal/abnormal . GRAN MAT (NEUT) % 75.8 % (test code = 770-8) IMM GRAN % (test code 0.30 % = 0090489417) LYMPH % (test code = 12.5 % 736-9) MONO % (test code = 8.5 % 5905-5) EOS % (test code = 2.0 % 713-8) BASO % (test code = 0.9 % 706-2) GRAN MAT x10^3(ANC) 5.80 10*3/uL 1.88-7.09 (test code = 4203570079) IMM GRAN x10^3 (test 0.00-0.06 code = 2891585892) LYMPH x10^3 (test code 0.96 10*3/uL 1.32-3.29 L = 731-0) MONO x10^3 (test code 0.65 10*3/uL 0.33-0.92 = 742-7) EOS x10^3 (test code = 0.15 10*3/uL 0.03-0.39 711-2) BASO x10^3 (test code 0.07 10*3/uL 0.01-0.07 = 704-7) Lab Interpretation Abnormal (test code = 06894-0) [facility]-07 21:12:16 Test Item Value Reference Range Interpretation Comments Height (test code = 63 in 2981233148) Weight (test code = 101 lbs 2177593056) Systolic BP (test code 127 mmHg = 6387754740) Diastolic BP (test code 43 mmHg = 8899890029) Heart Rate (test code = 50 bpm 4477494226) BSA (test code = 1.45 m2 8254782978) LVOT diameter (test 1.62 cm code = 6913506013) LVOT area (test code = 2.05 cm2 6945162136) Ao root diam (test code 2.34 cm = 3752374989) Aortic root (test code 2.34 cm = 6825493316) Ao root annulus (test 2.34 cm code = 8658568273) LA size (test code = 4.9 cm 3221755317) TR Peak Amrita (test code 209.0 cm/s = 7663334238) Triscuspid Valve 17.5 mmHg Regurgitation Peak Gradient (test code = 9918167891) PV REGURGITATION PEAK 8.9 mmHg GRADIENT (test code = 1845768885) PI dec slope (test code 81.30 cm/s2 = 6681334109) E wave decelartion time 0.26 s (test code = 8725628031) MV Peak A Amrita (test 58.0 cm/s code = 8155495057) MV Peak E Amrita (test 116.0 cm/s code = 2967716727) E/A ratio (test code = 2.00 ratio 0492339942) MR max PG (test code = 125.90 mm[Hg] 4170711281) MR max amrita (test code = 561.00 cm/s 4250409844) Mr max amrita (test code = 561.0 m/s 6631840182) MV Prop V (test code = 33.60 cm/s 7333871669) LAV(MOD-sp4) (test code 50.40 mL = 0146571379) MV E/e' septal (test 5.1 cm/s code = 2047747759) Tapse (test code = 1.37 cm 9923934664) LVOT stroke volume 42.60 cm3 (test code = 0650954062) LVOT peak amrita (test 96.3 cm/s code = 6352546135) LVOT mn grad (test code 1.6 mmHg = 3035187640) AV LVOT peak gradient 3.7 mmHg (test code = 1560137279) LVOT peak VTI (test 20.8 cm code = 8889046223) LV V1 mean (test code = 59.50 cm/s 7926699025) LA Volume Index (BP) 39.6 mL/m2 (test code = 7070862511) LA volume (BP) (test 57.2 mL code = 8404942673) LAV(MOD-sp2) (test code 59.90 mL = 6830337198) AV regurgitation 482.7 ms pressure 1/2 time (test code = 8846900189) AI dec slope (test code 212.30 cm/s2 = 9423909644) AI max amrita (test code = 349.90 cm/s 9434001126) AI max PG (test code = 49.00 mm[Hg] 3000371166) LVIDD (test code = 3.90 cm 7053746914) Left Ventricular End 66.7 mL Diastolic Volume by Teichholz Method (test code = 5422299) EF(Teich) (test code = 67.60 % 2075545617) FS (test code = 37 % 1541435476) EF - 2D (test code = 67.60 % 32437147) IVS (test code = 1.22 cm 1347393787) Interventricular Septum 1.22 cm Diastolic Thickness by 2D (test code = 1647940) LVPWD (test code = 1.12 cm 7762390146) PW (test code = 1.12 cm 0.6-1.8 8352968803) LVIDS (test code = 2.47 cm 4013676928) Left Ventricular End 21.6 mL Systolic Volume by Teichholz Method (test code = 7656948) Aortic valve mean 210.4 cm/s velocity (test code = 4276281952) Ao peak amrita (test code 307.4 cm/s = 5995595064) Ao VTI (test code = 68.2 cm 5674411952) AV area by cont VTI 0.6 cm2 (test code = 1356908528) AV area peak amrita (test 0.6 cm2 code = 8719713311) Ao max PG (test code = 37.80 mm[Hg] 3891450516) AV peak gradient (test 37.8 mmHg code = 7994705229) AV valve area (test 0.63 cm2 code = 6424657622) AV mean gradient (test 19.8 mmHg code = 9171181081) Radiology Study observation (narrative) (test code = 17749-2) ROBERT (test code = ROBERT) ?Left?Ventricle: Left [...] color flow Doppler and spectral Doppler. [facility] METABOLIC [id number] 05:06:36 Test Item Value Reference Range Interpretation [...] not appl icable for dialysis patien ts Store Consultant ID - PIDYLAN OAXVCHAHAX2021-83-04 05:06:35 Test Item Value Reference Range Interpretation Comments MAGNESIUM (BEAKER) 1.7 mg/dL 1.6-2.6 Specimen slightly (test code = 627) hemolyzed Store Consultant ID - ARMAND LPROTHROMBIN TIME/[id number] 04:57:12 Test Item Value Reference Range Interpretation [...] mechanical heart valves.CBC W/PLT COUNT & AUTO [id number] 04:49:51 Test Item Value Reference Range Interpretation [...] 0.00-1.00 PERCENT (BEAKER) (test code = 2801) [id number] 10:05:40 Test Item Value Reference Range Interpretation Comments PARTIAL THROMBOPLASTIN TIME 49.3 seconds 22.5-36.0 H (BEAKER) (test code = 760) [id number] 07:34:27 Test Item Value Reference Range Interpretation Comments PARTIAL THROMBOPLASTIN TIME > seconds 22.5-36.0 HH (BEAKER) (test code = 760) [id number] 07:21:03 Test Item Value Reference Range Interpretation Comments MAGNESIUM (BEAKER) (test code = 2.0 mg/dL 1.6-2.6 627) Store Consultant ID - PIAYA LBASIC METABOLIC [id number] 07:21:02 Test Item Value Reference Range Interpretation [...] not appl icable for dialysis patien ts Store Consultant ID - PIAYA LPROTHROMBIN TIME/[id number] 07:11:04 Test Item Value Reference Range Interpretation [...] mechanical heart valves.CBC W/PLT COUNT & AUTO [id number] 06:42:15 Test Item Value Reference Range Interpretation [...] 0.00-1.00 PERCENT (BEAKER) (test code = 2801) [id number] 01:06:03 Test Item Value Reference Range Interpretation Comments PARTIAL THROMBOPLASTIN TIME 90.3 seconds 22.5-36.0 H (BEAKER) (test code = 760) [id number] 23:34:15 Test Item Value Reference Range Interpretation Comments PARTIAL THROMBOPLASTIN TIME > seconds 22.5-36.0 HH (BEAKER) (test code = 760) [id number] 14:56:56 Test Item Value Reference Range Interpretation Comments PARTIAL THROMBOPLASTIN TIME 40.2 seconds 22.5-36.0 H (BEAKER) (test code = 760) [id number] 12:49:04 Test Item Value Reference Range Interpretation Comments PARTIAL THROMBOPLASTIN TIME 139.9 seconds 22.5-36.0 H (BEAKER) (test code = 760) [id number] 08:00:43 Test Item Value Reference Range Interpretation Comments MAGNESIUM (BEAKER) (test code = 1.5 mg/dL 1.6-2.6 L 627) Store Consultant ID - MARCOBASIC METABOLIC [id number] 08:00:42 Test Item Value Reference Range Interpretation [...] not appl icable for dialysis patien ts Store Consultant ID - [id number] 06:54:28 Test Item Value Reference Range Interpretation Comments PARTIAL THROMBOPLASTIN TIME 180.9 seconds 22.5-36.0 HH (BEAKER) (test code = 760) [id number] 06:30:25 Test Item Value Reference Range Interpretation Comments PARTIAL THROMBOPLASTIN TIME 61.3 seconds 22.5-36.0 H (BEAKER) (test code = 760) [id number] 04:16:14 Test Item Value Reference Range Interpretation Comments PARTIAL THROMBOPLASTIN TIME > seconds 22.5-36.0 HH (BEAKER) (test code = 760) PROTHROMBIN TIME/[id number] 03:42:33 Test Item Value Reference Range Interpretation [...] mechanical heart valves.CBC W/PLT COUNT & AUTO [id number] 03:35:52 Test Item Value Reference Range Interpretation [...] 0.00-1.00 PERCENT (BEAKER) (test code = 2801) [id number] 20:27:00 Test Item Value Reference Range Interpretation Comments PARTIAL THROMBOPLASTIN TIME 53.4 seconds 22.5-36.0 H (BEAKER) (test code = 760) [id number] 18:26:32 Test Item Value Reference Range Interpretation Comments PARTIAL THROMBOPLASTIN TIME 112.2 seconds 22.5-36.0 H (BEAKER) (test code = 760) [id number] 10:53:07 Test Item Value Reference Range Interpretation Comments PARTIAL THROMBOPLASTIN TIME 48.7 seconds 22.5-36.0 H (BEAKER) (test code = 760) [id number] 04:20:11 Test Item Value Reference Range Interpretation Comments PARTIAL THROMBOPLASTIN TIME 50.2 seconds 22.5-36.0 H (BEAKER) (test code = 760) [id number] 02:16:45 Test Item Value Reference Range Interpretation Comments PARTIAL THROMBOPLASTIN TIME 120.7 seconds 22.5-36.0 H (BEAKER) (test code = 760) [id number] 01:49:02 Test Item Value Reference Range Interpretation Comments MAGNESIUM (BEAKER) (test code = 1.7 mg/dL 1.6-2.6 627) Store Consultant ID - [id number] 01:49:02 Test Item Value Reference Range Interpretation Comments PHOSPHORUS (BEAKER) (test code = 4.7 mg/dL 2.3-4.7 604) Store Consultant ID - BSBASIC METABOLIC [id number] 01:49:01 Test Item Value Reference Range Interpretation [...] not appl icable for dialysis patien ts Store Consultant ID - BSPROTHROMBIN TIME/[id number] 01:46:19 Test Item Value Reference Range Interpretation [...] mechanical heart valves.CBC W/PLT COUNT & AUTO [id number] 01:29:16 Test Item Value Reference Range Interpretation [...] H PERCENT (BEAKER) (test code = 2801) [id number] 18:43:50 Test Item Value Reference Range Interpretation Comments PARTIAL THROMBOPLASTIN TIME 56.0 seconds 22.5-36.0 H (BEAKER) (test code = 760) [id number] 16:49:50 Test Item Value Reference Range Interpretation Comments PARTIAL THROMBOPLASTIN TIME 123.0 seconds 22.5-36.0 H (BEAKER) (test code = 760) [id number] 08:57:26 Test Item Value Reference Range Interpretation Comments PARTIAL THROMBOPLASTIN TIME 48.3 seconds 22.5-36.0 H (BEAKER) (test code = 760) [id number] 05:52:08 Test Item Value Reference Range Interpretation Comments PARTIAL THROMBOPLASTIN TIME 134.4 seconds 22.5-36.0 H (BEAKER) (test code = 760) PROTHROMBIN TIME/[id number] 05:18:02 Test Item Value Reference Range Interpretation Comments PROTIME (BEAKER) (test code = 14.1 seconds 11.9-14.2 759) INR (BEAKER) (test code = 370) 1.16 <=5.90 RECOMMENDED COUMADIN/WARFARIN INR THERAPY RANGESSTANDARD DOSE: 2.0 - 3.0 Includes: PROPHYLAXIS for venous thrombosis, systemic embolization; TREATMENT for venous thrombosis and/or pulmonary embolus.HIGH RISK: Target INR is 2.5-3.5 for patients with mechanical heart valves.[id number] 05:06:39 Test Item Value Reference Range Interpretation Comments PHOSPHORUS (BEAKER) (test code = 4.9 mg/dL 2.3-4.7 H 604) Store Consultant ID - BSBASIC METABOLIC [id number] 05:06:38 Test Item Value Reference Range Interpretation [...] not appl icable for dialysis patien ts Store Consultant ID - GRITPPTZAWX8128-40-61 05:06:38 Test Item Value Reference Range Interpretation Comments MAGNESIUM (BEAKER) (test code = 1.7 mg/dL 1.6-2.6 627) Store Consultant ID - BSCBC W/PLT COUNT & AUTO [id number] 04:48:51 Test Item Value Reference Range Interpretation [...] 0.00-1.00 PERCENT (BEAKER) (test code = 2801) [id number] 21:33:18 Test Item Value Reference Range Interpretation Comments PARTIAL THROMBOPLASTIN TIME 51.5 seconds 22.5-36.0 H (BEAKER) (test code = 760) HEMOGLOBIN AND [id number] 18:35:26 Test Item Value Reference Range Interpretation Comments HEMOGLOBIN (BEAKER) (test code = 9.5 GM/DL 11.2-15.7 L 410) HEMATOCRIT (BEAKER) (test code = 30.9 % 34.1-44.9 L 411) Store Consultant ID - [id number] 14:30:55 Test Item Value Reference Range Interpretation Comments PARTIAL THROMBOPLASTIN TIME 59.3 seconds 22.5-36.0 H (BEAKER) (test code = 760) [id number] 06:21:11 Test Item Value Reference Range Interpretation Comments PARTIAL THROMBOPLASTIN TIME 62.1 seconds 22.5-36.0 H (BEAKER) (test code = 760) PROTHROMBIN TIME/[id number] 03:22:14 Test Item Value Reference Range Interpretation Comments PROTIME (BEAKER) (test code = 14.8 seconds 11.9-14.2 H 759) INR (BEAKER) (test code = 370) 1.23 <=5.90 RECOMMENDED COUMADIN/WARFARIN INR THERAPY RANGESSTANDARD DOSE: 2.0 - 3.0 Includes: PROPHYLAXIS for venous thrombosis, systemic embolization; TREATMENT for venous thrombosis and/or pulmonary embolus.HIGH RISK: Target INR is 2.5-3.5 for patients with mechanical heart valves.[id number] 03:16:55 Test Item Value Reference Range Interpretation Comments MAGNESIUM (BEAKER) (test code = 2.2 mg/dL 1.6-2.6 627) Store Consultant ID - [id number] 03:16:55 Test Item Value Reference Range Interpretation Comments PHOSPHORUS (BEAKER) (test code = 3.8 mg/dL 2.3-4.7 604) Store Consultant ID - BSBASIC METABOLIC [id number] 03:16:54 Test Item Value Reference Range Interpretation [...] not appl icable for dialysis patien ts Store Consultant ID - BSCBC W/PLT COUNT & AUTO [id number] 02:57:48 Test Item Value Reference Range Interpretation [...] PERCENT (BEAKER) (test code = 2801) Prepare [id number] 23:54:00 Test Item Value Reference Range Interpretation Comments CROSSMATCH (test code = 2264) COMPATIBLE Unit ABO (test code = A Pos 2423792) UNIT NUMBER (test code = [id number] 934-0) Status (test code = 7017255) TX_TIMEINCHART Blood Bank Product (test code RED BLOOD CELLS = 2263) PRODUCT CODE (test code = R8657C29 933-2) [facility] [id number] 23:54:00 Test Item Value Reference Range Interpretation Comments CROSSMATCH (test code = 2264) COMPATIBLE Unit ABO (test code = A Pos 3335110) UNIT NUMBER (test code = [id number] 934-0) Status (test code = 2838910) TX_TIMEINCHART Blood Bank Product (test code RED BLOOD CELLS = 2263) PRODUCT CODE (test code = W1213C07 933-2) [facility] [id number] 23:54:00 Test Item Value Reference Range Interpretation Comments CROSSMATCH (test code = 2264) COMPATIBLE Unit ABO (test code = A Pos 6186954) UNIT NUMBER (test code = [id number] 934-0) Status (test code = 3849079) TX_TIMEINCHART Blood Bank Product (test code RED BLOOD CELLS = 2263) PRODUCT CODE (test code = V9897F30 933-2) [facility] [id number] 23:54:00 Test Item Value Reference Range Interpretation Comments CROSSMATCH (test code = 2264) COMPATIBLE Unit ABO (test code = A Pos 8628445) UNIT NUMBER (test code = [id number] 934-0) Status (test code = 3791803) TX_TIMEINCHART Blood Bank Product (test code RED BLOOD CELLS = 2263) PRODUCT CODE (test code = O9551G03 933-2) [facility] [id number] 23:54:00 Test Item Value Reference Range Interpretation Comments CROSSMATCH (test code = 2264) COMPATIBLE Unit ABO (test code = A Pos 1816871) UNIT NUMBER (test code = [id number] 934-0) Status (test code = 5457360) TX_TIMEINCHART Blood Bank Product (test code RED BLOOD CELLS = 2263) PRODUCT CODE (test code = E5659I45 933-2) [facility] [id number] 23:54:00 Test Item Value Reference Range Interpretation Comments CROSSMATCH (test code = 2264) COMPATIBLE Unit ABO (test code = A Pos 7174813) UNIT NUMBER (test code = [id number] 934-0) Status (test code = 9630722) TX_TIMEINCHART Blood Bank Product (test code RED BLOOD CELLS = 2263) PRODUCT CODE (test code = V7391L15 933-2) [facility] [id number] 23:54:00 Test Item Value Reference Range Interpretation Comments CROSSMATCH (test code = 2264) COMPATIBLE Unit ABO (test code = A Pos 5095507) UNIT NUMBER (test code = [id number] 934-0) Status (test code = 6356052) TX_TIMEINCHART Blood Bank Product (test code RED BLOOD CELLS = 2263) PRODUCT CODE (test code = R3650I54 933-2) [facility] [id number] 23:54:00 Test Item Value Reference Range Interpretation Comments CROSSMATCH (test code = 2264) COMPATIBLE Unit ABO (test code = A Pos 9234372) UNIT NUMBER (test code = [id number] 934-0) Status (test code = 6536628) TX_TIMEINCHART Blood Bank Product (test code RED BLOOD CELLS = 2263) PRODUCT CODE (test code = X1254O41 933-2) [facility] [id number] 23:54:00 Test Item Value Reference Range Interpretation Comments CROSSMATCH (test code = 2264) COMPATIBLE Unit ABO (test code = A Pos 5312981) UNIT NUMBER (test code = [id number] 934-0) Status (test code = 8136865) TX_TIMEINCHART Blood Bank Product (test code RED BLOOD CELLS = 2263) PRODUCT CODE (test code = E6683R77 933-2) [facility] [id number] 23:54:00 Test Item Value Reference Range Interpretation Comments CROSSMATCH (test code = 2264) COMPATIBLE Unit ABO (test code = A Pos 6430259) UNIT NUMBER (test code = [id number] 934-0) Status (test code = 4283478) TX_TIMEINCHART Blood Bank Product (test code RED BLOOD CELLS = 2263) PRODUCT CODE (test code = N3764I19 933-2) [facility] [id number] 23:54:00 Test Item Value Reference Range Interpretation Comments CROSSMATCH (test code = 2264) COMPATIBLE Unit ABO (test code = A Pos 4732262) UNIT NUMBER (test code = [id number] 934-0) Status (test code = 0996522) TX_TIMEINCHART Blood Bank Product (test code RED BLOOD CELLS = 2263) PRODUCT CODE (test code = G1039W92 933-2) [facility] [id number] 23:54:00 Test Item Value Reference Range Interpretation Comments CROSSMATCH (test code = 2264) COMPATIBLE Unit ABO (test code = A Pos 9572465) UNIT NUMBER (test code = [id number] 934-0) Status (test code = 5998638) TX_TIMEINCHART Blood Bank Product (test code RED BLOOD CELLS = 2263) PRODUCT CODE (test code = V4293K65 933-2) [facility] [id number] 23:54:00 Test Item Value Reference Range Interpretation Comments CROSSMATCH (test code = 2264) COMPATIBLE Unit ABO (test code = A Pos 9318892) UNIT NUMBER (test code = [id number] 934-0) Status (test code = 7958257) TX_TIMEINCHART Blood Bank Product (test code RED BLOOD CELLS = 2263) PRODUCT CODE (test code = I5095P46 933-2) [facility]2023-02-06 23:54:00 Test Item Value Reference Range Interpretation Comments CROSSMATCH (test code = 2264) COMPATIBLE Unit ABO (test code = A Pos 6325602) UNIT NUMBER (test code = [id number] 934-0) Status (test code = 8913354) TX_TIMEINCHART Blood Bank Product (test code RED BLOOD CELLS = 2263) PRODUCT CODE (test code = J1639F39 933-2) [facility] [id number] 21:46:53 Test Item Value Reference Range Interpretation Comments HEMOGLOBIN (BEAKER) (test code = 9.0 GM/DL 11.2-15.7 L 410) HEMATOCRIT (BEAKER) (test code = 30.5 % 34.1-44.9 L 411) Store Consultant ID - [id number] Echo W/Doppler(CW/PW/Color)2022-05-21 18:02:14Ejection FractionSLEH ECHO HEARTLAB [facility] Echo W/Doppler(CW/PW/Color)2022-05-21 18:02:14Ejection FractionSLEH ECHO HEARTLAB [facility] Echo W/Doppler(CW/PW/Color) 2022-05-21 18:02:14Ejection FractionSLEH ECHO HEARTLAB [facility] Echo W/Doppler(CW/PW/Color)2022-05-21 18:02:14Ejection FractionSLEH ECHO HEARTLAB [facility] Echo W/Doppler(CW/PW/Color)2022-05-21 18:02:14Ejection FractionSLEH ECHO HEARTLAB [facility] Echo W/Doppler(CW/PW/Color) 2022-05-21 18:02:14Ejection FractionSLEH ECHO HEARTLAB [facility] Echo W/Doppler(CW/PW/Color)2022-05-21 18:02:14Ejection FractionSLEH ECHO HEARTLAB [facility] Echo W/Doppler(CW/PW/Color)2022-05-21 18:02:14Ejection FractionSLEH ECHO HEARTLAB [facility] Echo W/Doppler(CW/PW/Color) 2022-05-21 18:02:14Ejection FractionSLEH ECHO HEARTLAB [facility] Echo W/Doppler(CW/PW/Color)2022-05-21 18:02:14Ejection FractionSLEH ECHO HEARTLAB [facility] Echo W/Doppler(CW/PW/Color)2022-05-21 18:02:14Ejection FractionSLEH ECHO HEARTLAB [facility] Echo W/Doppler(CW/PW/Color) 2022-05-21 18:02:14Ejection FractionSLE ECHO HEARTLAB [facility] Echo W/Doppler(CW/PW/Color)2022-05-21 18:02:14Ejection FractionSLE ECHO [facility]ARTLAB [facility] Echo W/Doppler(CW/PW/Color)2022-05-21 18:02:14[facility]:07:17 Test Item Value Reference Range Interpretation Comments PARTIAL THROMBOPLASTIN TIME 68.4 seconds 22.5-36.0 H (BEAKER) (test code = 760) PROTHROMBIN TIME/[id number] 15:05:56 Test Item Value Reference Range Interpretation Comments PROTIME (BEAKER) (test code = 15.5 seconds 11.9-14.2 H 759) INR (BEAKER) (test code = 370) 1.31 <=5.90 RECOMMENDED COUMADIN/WARFARIN INR THERAPY RANGESSTANDARD DOSE: 2.0 - 3.0 Includes: PROPHYLAXIS for venous thrombosis, systemic embolization; TREATMENT for venous thrombosis and/or pulmonary embolus.HIGH RISK: Target INR is 2.5-3.5 for patients with mechanical heart valves.TSH/FREE T4 IF [id number] 13:50:00 Test Item Value Reference Range Interpretation Comments THYROID STIMULATING HORMONE 1.746 uIU/mL 0.350-4.940 (BEAKER) (test code = 772) Store Consultant ID - ARMAND LHEMOGLOBIN AND LOCKSEUSXE5324-19-78 13:00:10 Test Item Value Reference Range Interpretation Comments HEMOGLOBIN (BEAKER) (test code = 9.0 GM/DL 11.2-15.7 L 410) HEMATOCRIT (BEAKER) (test code = 29.3 % 34.1-44.9 L 411) Store Consultant ID - [id number] 08:55:39 Test Item Value Reference Range Interpretation Comments PARTIAL THROMBOPLASTIN TIME 70.0 seconds 22.5-36.0 H (BEAKER) (test code = 760) [id number] 05:39:20 Test Item Value Reference Range Interpretation Comments PHOSPHORUS (BEAKER) (test code = 3.3 mg/dL 2.3-4.7 604) Store Consultant ID - MARCOBASIC METABOLIC [id number] 05:39:19 Test Item Value Reference Range Interpretation [...] not appl icable for dialysis patien ts Store Consultant ID - NUROVYSVJKGZUE0778-42-13 05:39:19 Test Item Value Reference Range Interpretation Comments MAGNESIUM (BEAKER) (test code = 1.6 mg/dL 1.6-2.6 627) Store Consultant ID - MARCOCBC W/PLT COUNT & AUTO UEQVOUYUOPIV9587-65-96 05:18:48 Test Item Value Reference Range Interpretation [...] 0.00-1.00 PERCENT (BEAKER) (test code = 2801) [id number] 01:34:38 Test Item Value Reference Range Interpretation Comments PARTIAL THROMBOPLASTIN TIME 94.3 seconds 22.5-36.0 H (BEAKER) (test code = 760) PROTHROMBIN TIME/[id number] 01:32:54 Test Item Value Reference Range Interpretation Comments PROTIME (BEAKER) (test code = 15.8 seconds 11.9-14.2 H 759) INR (BEAKER) (test code = 370) 1.35 <=5.90 RECOMMENDED COUMADIN/WARFARIN INR THERAPY RANGESSTANDARD DOSE: 2.0 - 3.0 Includes: PROPHYLAXIS for venous thrombosis, systemic embolization; TREATMENT for venous thrombosis and/or pulmonary embolus.HIGH RISK: Target INR is 2.5-3.5 for patients with mechanical heart valves.HEMOGLOBIN AND [id number] 20:48:52 Test Item Value Reference Range Interpretation Comments HEMOGLOBIN (BEAKER) (test code = 8.6 GM/DL 11.2-15.7 L 410) HEMATOCRIT (BEAKER) (test code = 27.9 % 34.1-44.9 L 411) Store Consultant ID - [id number] 17:34:13 Test Item Value Reference Range Interpretation Comments PARTIAL THROMBOPLASTIN TIME 53.7 seconds 22.5-36.0 H (BEAKER) (test code = 760) PROTHROMBIN TIME/[id number] 17:33:32 Test Item Value Reference Range Interpretation Comments PROTIME (BEAKER) (test code = 16.0 seconds 11.9-14.2 H 759) INR (BEAKER) (test code = 370) 1.37 <=5.90 RECOMMENDED COUMADIN/WARFARIN INR THERAPY RANGESSTANDARD DOSE: 2.0 - 3.0 Includes: PROPHYLAXIS for venous thrombosis, systemic embolization; TREATMENT for venous thrombosis and/or pulmonary embolus.HIGH RISK: Target INR is 2.5-3.5 for patients with mechanical heart valves.[id number] 13:24:26 Test Item Value Reference Range Interpretation Comments PARTIAL THROMBOPLASTIN TIME 70.7 seconds 22.5-36.0 H (BEAKER) (test code = 760) HEMOGLOBIN AND [id number] 13:10:45 Test Item Value Reference Range Interpretation Comments HEMOGLOBIN (BEAKER) (test code = 8.4 GM/DL 11.2-15.7 L 410) HEMATOCRIT (BEAKER) (test code = 27.0 % 34.1-44.9 L 411) Store Consultant ID - 6000Predakotae [id number] 08:19:00 Test Item Value Reference Range Interpretation Comments CROSSMATCH (test code = 2264) COMPATIBLE Unit ABO (test code = A Pos 0472857) UNIT NUMBER (test code = [id number] 934-0) Status (test code = 1717684) ISSUED Blood Bank Product (test code RED BLOOD CELLS = 2263) PRODUCT CODE (test code = G4561K12 933-2) [facility] [id number] 08:19:00 Test Item Value Reference Range Interpretation Comments CROSSMATCH (test code = 2264) COMPATIBLE Unit ABO (test code = A Pos 4392909) UNIT NUMBER (test code = [id number] 934-0) Status (test code = 4799147) ISSUED Blood Bank Product (test code RED BLOOD CELLS = 2263) PRODUCT CODE (test code = E4069U91 933-2) [facility] 05:24:24 Test Item Value Reference Range Interpretation Comments PARTIAL THROMBOPLASTIN TIME 91.6 seconds 22.5-36.0 H (BEAKER) (test code = 760) [id number] 04:22:23 Test Item Value Reference Range Interpretation Comments MAGNESIUM (BEAKER) (test code = 1.8 mg/dL 1.6-2.6 627) Store Consultant ID - PIAYA DEQNKFBLBMG9765-87-36 04:22:23 Test Item Value Reference Range Interpretation Comments PHOSPHORUS (BEAKER) (test code = 4.1 mg/dL 2.3-4.7 604) Store Consultant ID - ARMAND LBASIC METABOLIC LCWNB8470-03-05 04:22:22 Test Item Value Reference Range Interpretation [...] not appl icable for dialysis patien ts Store Consultant ID - PIDYLAN LPROTHROMBIN TIME/[id number] 03:58:55 Test Item Value Reference Range Interpretation [...] mechanical heart valves.CBC W/PLT COUNT & AUTO [id number] 03:54:23 Test Item Value Reference Range Interpretation [...] 0.00-1.00 PERCENT (BEAKER) (test code = 2801) [id number] 23:23:33 Test Item Value Reference Range Interpretation Comments PARTIAL THROMBOPLASTIN TIME 63.2 seconds 22.5-36.0 H (BEAKER) (test code = 760) HEMOGLOBIN AND [id number] 21:26:00 Test Item Value Reference Range Interpretation Comments HEMOGLOBIN (BEAKER) (test code = 7.6 GM/DL 11.2-15.7 L 410) HEMATOCRIT (BEAKER) (test code = 24.8 % 34.1-44.9 L 411) Store Consultant ID - 1895PFKR8075-94-58 17:30:54 Test Item Value Reference Range Interpretation Comments PARTIAL THROMBOPLASTIN TIME 37.0 seconds 22.5-36.0 H (BEAKER) (test code = 760) PROTHROMBIN TIME/[id number] 17:29:53 Test Item Value Reference Range Interpretation Comments PROTIME (BEAKER) (test code = 18.3 seconds 11.9-14.2 H 759) INR (BEAKER) (test code = 370) 1.62 <=5.90 RECOMMENDED COUMADIN/WARFARIN INR THERAPY RANGESSTANDARD DOSE: 2.0 - 3.0 Includes: PROPHYLAXIS for venous thrombosis, systemic embolization; TREATMENT for venous thrombosis and/or pulmonary embolus.HIGH RISK: Target INR is 2.5-3.5 for patients with mechanical heart valves.PROTHROMBIN TIME/[id number] 12:31:00 Test Item Value Reference Range Interpretation Comments PROTIME (BEAKER) (test code = 18.7 seconds 11.9-14.2 H 759) INR (BEAKER) (test code = 370) 1.61 <=5.90 RECOMMENDED COUMADIN/WARFARIN INR THERAPY RANGESSTANDARD DOSE: 2.0 - 3.0 Includes: PROPHYLAXIS for venous thrombosis, systemic embolization; TREATMENT for venous thrombosis and/or pulmonary embolus.HIGH RISK: Target INR is 2.5-3.5 for patients with mechanical heart valves.HEMOGLOBIN AND [id number] 12:24:20 Test Item Value Reference Range Interpretation Comments HEMOGLOBIN (BEAKER) (test code = 7.4 GM/DL 11.2-15.7 L 410) HEMATOCRIT (BEAKER) (test code = 23.7 % 34.1-44.9 L 411) Store Consultant ID - 6000POC-Glucose wpgtv5137-26-20 05:40:23 Test Item Value Reference Range Interpretation Comments POC-Glucose Meter (test 78 mg/dL 70-110 : TE STED AT [facility] code = 1538) [address] [place] [address], 770 30: Store Consultant/Techni valarie ID = [id number] for Yumi, James Lab Interpretation (test Normal code = 16544-3) [facility] [id number] 05:40:23 Test Item Value Reference Range Interpretation Comments POC-Glucose Meter (test 78 mg/dL 70-110 : TE STED AT [facility] code = 1538) [address] [place] [address], [facility] 30: Store Consultant/Techni valarie ID = [id number] for Yumi, Jamse Lab Interpretation (test Normal code = 19793-4) [facility]-Glucose [id number] 05:40:23 Test Item Value Reference Range Interpretation Comments POC-Glucose Meter (test 78 mg/dL 70-110 : TE STED AT [facility] code = 1538) [address] [place] [address], 770 30: Store Consultant/Techni valarie ID = [id number] for Yumi, James Lab Interpretation (test Normal code = 26726-0) [facility] sxkok4413-83-28 05:40:23 Test Item Value Reference Range Interpretation Comments POC-Glucose Meter (test 78 mg/dL 70-110 : TE STED AT [facility] code = 1538) [address] [place] [address], 770 30: Store Consultant/Techni valarie ID = [id number] for Yumi, James Lab Interpretation (test Normal code = 23961-2) [facility] qtmob9882-63-38 05:40:23 Test Item Value Reference Range Interpretation Comments POC-Glucose Meter (test 78 mg/dL 70-110 : TE STED AT [facility] code = 1538) [address] [place] [address], 770 30: Store Consultant/Techni valarie ID = [id number] for Yumi, James Lab Interpretation (test Normal code = 86008-3) [facility] tzsit1250-22-21 05:40:23 Test Item Value Reference Range Interpretation Comments POC-Glucose Meter (test 78 mg/dL 70-110 : TE STED AT [facility] code = 1538) [address] [place] [address], 770 30: Store Consultant/Techni valarie ID = [id number] for Yumi, James Lab Interpretation (test Normal code = 96635-4) [facility] [id number] 05:40:23 Test Item Value Reference Range Interpretation Comments POC-Glucose Meter (test 78 mg/dL 70-110 : TE STED AT [facility] code = 1538) [address] [place] [address], 770 30: Store Consultant/Techni valarie ID = [id number] for Yumi, James Lab Interpretation (test Normal code = 89786-0) [facility] [id number] 05:40:23 Test Item Value Reference Range Interpretation Comments POC-Glucose Meter (test 78 mg/dL 70-110 : TE STED AT [facility] code = 1538) [address] [place] [address], 770 30: Store Consultant/Techni valarie ID = [id number] for Yumi, James Lab Interpretation (test Normal code = 43080-2) [facility] agxjq0759-22-41 05:40:23 Test Item Value Reference Range Interpretation Comments POC-Glucose Meter (test 78 mg/dL 70-110 : TE STED AT [facility] code = 1538) [address] [place] [address], [facility] 30: Store Consultant/Techni valarie ID = [id number] for Yumi, James Lab Interpretation (test Normal code = 65865-1) [facility] [id number] 05:40:23 Test Item Value Reference Range Interpretation Comments POC-Glucose Meter (test 78 mg/dL 70-110 : TE STED AT [facility] code = 1538) [address] [place] [address], 770 30: Store Consultant/Techni valarie ID = [id number] for Yumi, James Lab Interpretation (test Normal code = 93952-0) [facility] qmtqo6054-17-75 05:40:23 Test Item Value Reference Range Interpretation Comments POC-Glucose Meter (test 78 mg/dL 70-110 : TE STED AT [facility] code = 1538) [address] [place] [address], 770 30: Store Consultant/Techni valarie ID = [id number] for Yumi, James Lab Interpretation (test Normal code = 39303-3) [facility]-Glucose gniqr6901-38-03 05:40:23 Test Item Value Reference Range Interpretation Comments POC-Glucose Meter (test 78 mg/dL 70-110 : TE STED AT [facility] code = 1538) [address] [place] [address], 770 30: Store Consultant/Techni valarie ID = [id number] for Yumi, James Lab Interpretation (test Normal code = 69581-3) [facility]-Glucose [id number] 05:40:23 Test Item Value Reference Range Interpretation Comments POC-Glucose Meter (test 78 mg/dL 70-110 : TE STED AT [facility] code = 1538) [address] [place] [address], 770 30: Store Consultant/Techni valarie ID = [id number] for Yumi, James Lab Interpretation (test Normal code = 93549-9) [facility]-Glucose [id number] 05:40:23 Test Item Value Reference Range Interpretation Comments POC-Glucose Meter (test 78 mg/dL 70-110 : TE STED AT [facility] code = 1538) [address] [place] [address], 770 30: Store Consultant/Techni valarie ID = [id number] for Yumi, James Lab Interpretation (test Normal code = 72158-9) [facility]-Glucose [id number] 05:40:23 Test Item Value Reference Range Interpretation Comments POC-Glucose Meter (test 78 mg/dL 70-110 : TE STED AT [facility] code = 1538) [address] [place] [address], 770 30: Store Consultant/Techni valarie ID = [id number] for Yumi, James Lab Interpretation (test Normal code = 14439-2) [facility]-Glucose [id number] 05:40:23 Test Item Value Reference Range Interpretation Comments POC-Glucose Meter (test 78 mg/dL 70-110 : TE STED AT [facility] code = 1538) [address] [place] [address], 770 30: Store Consultant/Techni valarie ID = [id number] for Yumi, James Lab Interpretation (test Normal code = 68936-6) [facility]-GLUCOSE [id number] 05:40:23 Test Item Value Reference Range Interpretation Comments POC-GLUCOSE METER 78 mg/dL 70-110 : TESTED A T [facility] 6720 (BEAKER) (test code = [place], 1538) [address]: Store Consultant/Techni valarie ID = [id number] for James Cisneros [id number] 04:23:09 Test Item Value Reference Range Interpretation Comments MAGNESIUM (BEAKER) (test code = 2.1 mg/dL 1.6-2.6 627) Store Consultant ID - ARMAND [id number] 04:23:09 Test Item Value Reference Range Interpretation Comments PHOSPHORUS (BEAKER) (test code = 1.9 mg/dL 2.3-4.7 L 604) Store Consultant ID - ARMAND LBASIC METABOLIC [id number] 04:23:08 Test Item Value Reference Range Interpretation [...] not appl icable for dialysis patien ts Store Consultant ID - PIAYA LPROTHROMBIN TIME/VZE5141-76-64 04:07:24 Test Item Value Reference Range Interpretation [...] mechanical heart valves.CBC W/PLT COUNT & AUTO [id number] 04:00:27 Test Item Value Reference Range Interpretation [...] PERCENT (BEAKER) (test code = 2801) POCT-GLUCOSE [id number] 23:14:02 Test Item Value Reference Range Interpretation Comments POC-GLUCOSE METER 86 mg/dL 70-110 : TESTED A T [facility] 6720 (BEAKER) (test code = [facility], 1538) [id number]: Store Consultant/Techni valarie ID = [id number] for Robles Hanson BUN AND CREATININE W/[id number] 21:02:50 Test Item Value Reference Range Interpretation Comments BLOOD UREA 10 mg/dL 7-21 NITROGEN (BEAKER) (test code = 354) CREATININE 0.79 mg/dL 0.57-1.25 (BEAKER) (test code = 358) BUN/CREAT RATIO 13 For a normal individual on (BEAKER) (test a normal diet , the code = reference inter [place] for the [id number]) mass ratio rang es between 12:1 and [...] not appl icable for [facility] Store Consultant ID - [id number] 21:02:49 Test Item Value Reference Range Interpretation Comments MAGNESIUM (BEAKER) (test code = 2.1 mg/dL 1.6-2.6 627) Store Consultant ID - [id number] 21:02:49 Test Item Value Reference Range Interpretation Comments POTASSIUM (BEAKER) (test code = 3.7 meq/L 3.5-5.1 379) Store Consultant ID - BSHEMOGLOBIN AND [id number] 20:18:40 Test Item Value Reference Range Interpretation Comments HEMOGLOBIN (BEAKER) (test code = 7.5 GM/DL 11.2-15.7 L 410) HEMATOCRIT (BEAKER) (test code = 23.4 % 34.1-44.9 L 411) Store Consultant ID - [id number], CTA [id number] 19:41:00Unlisted Reason for Exam - Click Yes and Enter Reason Below->YesUnlisted Reason for Exam->Looking for mesenteric ischemia. [facility] 1955 Sex: FFINAL [...] prior exam. PERITONEUM/RETROPERITONEUM: There is small volume offree fluid containing layering blood products with scattered mesenteric edema. No organized collection. No free air. No retroperitoneal hematoma.LYMPH NODES: No lymphadenopathy.VASCULAR: There is no aortic dissection or aneurysm. No periaortic hematoma is present. Moderate atherosclerosis of the aortaand branching vessels. No branch vessel occlusion. The celiac axis and SMA are patent. There are single renal arteries bilaterally with marked atherosclerosis stenosis of the proximal left renal artery. The DOMINGO, aortic and iliac bifurcations are patent. No active extravasation. GI TRACT: There is a seg ment of small bowel in the lower mid abdomen with abnormally thickened tucker compatible with enteritis. There is no bowel obstruction. No pneumatosis intestinalis. Normal appendix. There is a moderate sliding hiatal hernia. There are a few noninflamed sigmoid diverticula of the sigmoid colon. BONES AND SOFT TISSUES: Bones are osteopenic. There is a chronic appearing compression deformity of L1 with approximately 50% height loss and retropulsion of the superior endplate of 0.7 cm. Severe degenerativechanges of the right hip with joint space loss and subchondral cystic changes. Moderate rotoscoliosis. Soft tissues are unremarkable. IMPRESSION: 1. Moderate atherosclerosis of the aorta and branching vessels without aneurysmal dilatation or branch vessel occlusion. There is marked atherosclerosis stenosis of the proximal left mid renal artery. 2. There is a small volume of hemoperitoneum. No discrete source of hemorrhage identified. 3. The abnormal wall thickening of the small bowel within the lower abdomen is compatible with enteritis with infectious, inflammatory, and ischemic etiologies considered. 4. Cholelithiasis. 5. Mild sigmoid diverticulosis. 6. Chronic appearing compression deformity ofL1 with 0.7 cm retropulsion of the superior endplate. No evidence of high-grade spinal canal stenosis given lack of intrathecal contrast. The findings were discussed with nurse Arboleda on 05/18/2022 at the time of dictation who will relay them to the physician. Signed: Ayden Goff MDReport Verified Date/Time: 05/18/2022 19:41:16 POCT-GLUCOSE [id number] 19:08:28 Test Item Value Reference Range Interpretation Comments POC-GLUCOSE METER 91 mg/dL 70-110 : TESTED A T [facility] 6720 (BEAKER) (test code = [place], 1538) [address]: Store Consultant/Techni valarie ID = [id number] for Scarlet Maravilla HIGH SENSITIVITY TROPONIN [id number] 16:22:26 Test Item Value Reference Range Interpretation Comments HIGH SENSITIVITY TROPONIN I (test 9 pg/ml <=17 code = 2109271) Store Consultant ID - BSThe [employer]ISH[employer] WORK[employer] STAT High Sensitivity Troponin-I results should be used in conjunctionwith other diagnostic information such as ECG, clinical observations and information, and patient symptoms to aid in the diagnosis of [place].Urinalysis w/Microscopic + Reflex to [id number] 16:12:56 Test Item Value Reference Range Interpretation Comments Color, UA (test code Yellow = 5778-6) Clarity, UA (test Hazy code = 5767-9) Specific [place], UA 1.045 1.001-1.035 H (test code = 5811-5) pH, UA (test code = 6.5 5.0-8.0 5803-2) Protein, UA (test 20 mg/dL Negative A code = 35496-2) Glucose, UA (test Negative Negative code = 365) Ketones, UA (test Negative Negative code = 2514-8) Bilirubin, UA (test Negative Negative code = 83055-1) Blood, UA (test code Moderate Negative A = 13947-4) Nitrite, UA (test Negative Negative code = 5802-4) Leukocytes, UA (test Large Negative A code = 5799-2) Urobilinogen, UA 0.2 0.2-1.0 (test code = 98347-1) RBC, UA (test code = 34 See_Comment [Autom ated 87765-7) message] The system which generated this result [...] . Bacteria, UA (test Few code = 78022-0) Squam Epithel, UA <1 See_Comment [Automate d (test code = 57894-9) messag e] The system which generated this result transmit bandar reference range : /HPF. The reference range was not used to interpret this result as normal/abnormal . Specimen Source (test code = 2795) ROBERT (test code = ROBERT) Store Consultant ID - [auto]Store Consultant ID - tech Lab Interpretation Abnormal (test code = 44525-5) [facility]18 16:12:56 Test Item Value Reference Range Interpretation Comments Color, UA (test code Yellow = 5778-6) Clarity, UA (test Hazy code = 5767-9) Specific [place], UA 1.045 1.001-1.035 H (test code = 5811-5) pH, UA (test code = 6.5 5.0-8.0 5803-2) Protein, UA (test 20 mg/dL Negative A code = 22341-0) Glucose, UA (test Negative Negative code = 365) Ketones, UA (test Negative Negative code = 2514-8) Bilirubin, UA (test Negative Negative code = 03406-1) Blood, UA (test code Moderate Negative A = 26543-7) Nitrite, UA (test Negative Negative code = 5802-4) Leukocytes, UA (test Large Negative A code = 5799-2) Urobilinogen, UA 0.2 0.2-1.0 (test code = 01401-6) RBC, UA (test code = 34 See_Comment [Autom ated 29961-3) message] The system which generated this result [...] . Bacteria, UA (test Few code = 16734-7) Squam Epithel, UA <1 See_Comment [Automate d (test code = 94474-8) messag e] The system which generated this result transmit bandar reference range : /HPF. The reference range was not used to interpret this result as normal/abnormal . Specimen Source (test code = 2795) ROBERT (test code = ROBERT) Store Consultant ID - [auto]Store Consultant ID - tech Lab Interpretation Abnormal (test code = 23302-4) [facility] Culture 2022-05-18 16:12:56 Test Item Value Reference Range Interpretation Comments Color, UA (test code Yellow = 5778-6) Clarity, UA (test Hazy code = 5767-9) Specific [place], UA 1.045 1.001-1.035 H (test code = 5811-5) pH, UA (test code = 6.5 5.0-8.0 5803-2) Protein, UA (test 20 mg/dL Negative A code = 24629-6) Glucose, UA (test Negative Negative code = 365) Ketones, UA (test Negative Negative code = 2514-8) Bilirubin, UA (test Negative Negative code = 10502-7) Blood, UA (test code Moderate Negative A = 79285-4) Nitrite, UA (test Negative Negative code = 5802-4) Leukocytes, UA (test Large Negative A code = 5799-2) Urobilinogen, UA 0.2 0.2-1.0 (test code = 48669-3) RBC, UA (test code = 34 See_Comment [Autom ated 23212-1) message] The system which generated this result [...] . Bacteria, UA (test Few code = 72669-1) Squam Epithel, UA <1 See_Comment [Automate d (test code = 18299-1) messag e] The system which generated this result transmit bandar reference range : /HPF. The reference range was not used to interpret this result as normal/abnormal . Specimen Source (test code = 2795) ROBERT (test code = ROBERT) Store Consultant ID - [auto]Store Consultant ID - tech Lab Interpretation Abnormal (test code = 55369-8) [facility] Culture 2022-05-18 16:12:56 Test Item Value Reference Range Interpretation Comments Color, UA (test code Yellow = 5778-6) Clarity, UA (test Hazy code = 5767-9) Specific [place], UA 1.045 1.001-1.035 H (test code = 5811-5) pH, UA (test code = 6.5 5.0-8.0 5803-2) Protein, UA (test 20 mg/dL Negative A code = 73003-0) Glucose, UA (test Negative Negative code = 365) Ketones, UA (test Negative Negative code = 2514-8) Bilirubin, UA (test Negative Negative code = 55898-1) Blood, UA (test code Moderate Negative A = 78783-3) Nitrite, UA (test Negative Negative code = 5802-4) Leukocytes, UA (test Large Negative A code = 5799-2) Urobilinogen, UA 0.2 0.2-1.0 (test code = 83425-1) RBC, UA (test code = 34 See_Comment [Autom ated 95863-8) message] The system which generated this result [...] . Bacteria, UA (test Few code = 70632-5) Squam Epithel, UA <1 See_Comment [Automate d (test code = 30703-5) messag e] The system which generated this result transmit bandar reference range : /HPF. The reference range was not used to interpret this result as normal/abnormal . Specimen Source (test code = 2795) ROBERT (test code = ROBERT) Store Consultant ID - [auto]Store Consultant ID - tech Lab Interpretation Abnormal (test code = 16110-4) [facility] Culture 2022-05-18 16:12:56 Test Item Value Reference Range Interpretation Comments Color, UA (test code Yellow = 5778-6) Clarity, UA (test Hazy code = 5767-9) Specific [place], UA 1.045 1.001-1.035 H (test code = 5811-5) pH, UA (test code = 6.5 5.0-8.0 5803-2) Protein, UA (test 20 mg/dL Negative A code = 66717-6) Glucose, UA (test Negative Negative code = 365) Ketones, UA (test Negative Negative code = 2514-8) Bilirubin, UA (test Negative Negative code = 80746-4) Blood, UA (test code Moderate Negative A = 70687-2) Nitrite, UA (test Negative Negative code = 5802-4) Leukocytes, UA (test Large Negative A code = 5799-2) Urobilinogen, UA 0.2 0.2-1.0 (test code = 23750-7) RBC, UA (test code = 34 See_Comment [Autom ated 59569-2) message] The system which generated this result [...] . Bacteria, UA (test Few code = 50253-7) Squam Epithel, UA <1 See_Comment [Automate d (test code = 39323-5) messag e] The system which generated this result transmit bandar reference range : /HPF. The reference range was not used to interpret this result as normal/abnormal . Specimen Source (test code = 2795) ROBERT (test code = ROBERT) Store Consultant ID - [auto]Store Consultant ID - tech Lab Interpretation Abnormal (test code = 25985-8) [facility] Ref[facility] Culture 2022-05-18 16:12:56 Test Item Value Reference Range Interpretation Comments Color, UA (test code Yellow = 5778-6) Clarity, UA (test Hazy code = 5767-9) Specific [place], UA 1.045 1.001-1.035 H (test code = 5811-5) pH, UA (test code = 6.5 5.0-8.0 5803-2) Protein, UA (test 20 mg/dL Negative A code = 81581-6) Glucose, UA (test Negative Negative code = 365) Ketones, UA (test Negative Negative code = 2514-8) Bilirubin, UA (test Negative Negative code = 57689-5) Blood, UA (test code Moderate Negative A = 72547-7) Nitrite, UA (test Negative Negative code = 5802-4) Leukocytes, UA (test Large Negative A code = 5799-2) Urobilinogen, UA 0.2 0.2-1.0 (test code = 37088-4) RBC, UA (test code = 34 See_Comment [Autom ated 99134-4) message] The system which generated this result [...] . Bacteria, UA (test Few code = 97158-0) Squam Epithel, UA See_Comment [Automate d (test code = 62639-9) messag e] The system which generated this result transmit bandar reference range : /HPF. The reference range was not used to interpret this result as normal/abnormal . Specimen Source (test code = 2795) ROBERT (test code = ROBERT) Store Consultant ID - [auto]Store Consultant ID - tech Lab Interpretation Abnormal (test code = 42162-0) [facility] Ref[facility] Culture 2022-05-18 16:12:56 Test Item Value Reference Range Interpretation Comments Color, UA (test code Yellow = 5778-6) Clarity, UA (test Hazy code = 5767-9) Specific [place], UA 1.045 1.001-1.035 H (test code = 5811-5) pH, UA (test code = 6.5 5.0-8.0 5803-2) Protein, UA (test 20 mg/dL Negative A code = 47466-5) Glucose, UA (test Negative Negative code = 365) Ketones, UA (test Negative Negative code = 2514-8) Bilirubin, UA (test Negative Negative code = 68576-3) Blood, UA (test code Moderate Negative A = 98999-5) Nitrite, UA (test Negative Negative code = 5802-4) Leukocytes, UA (test Large Negative A code = 5799-2) Urobilinogen, UA 0.2 0.2-1.0 (test code = 24337-5) RBC, UA (test code = 34 See_Comment [Autom ated 23348-7) message] The system which generated this result [...] . Bacteria, UA (test Few code = 52576-0) Squam Epithel, UA See_Comment [Automate d (test code = 10083-9) messag e] The system which generated this result transmit bandar reference range : /HPF. The reference range was not used to interpret this result as normal/abnormal . Specimen Source (test code = 2795) ROBERT (test code = ROBERT) Store Consultant ID - [auto]Store Consultant ID - tech Lab Interpretation Abnormal (test code = 26950-3) [facility] Ref[facility] Culture 2022-05-18 16:12:56 Test Item Value Reference Range Interpretation Comments Color, UA (test code Yellow = 5778-6) Clarity, UA (test Hazy code = 5767-9) Specific [place], UA 1.045 1.001-1.035 H (test code = 5811-5) pH, UA (test code = 6.5 5.0-8.0 5803-2) Protein, UA (test 20 mg/dL Negative A code = 83925-3) Glucose, UA (test Negative Negative code = 365) Ketones, UA (test Negative Negative code = 2514-8) Bilirubin, UA (test Negative Negative code = 38993-0) Blood, UA (test code Moderate Negative A = 25784-0) Nitrite, UA (test Negative Negative code = 5802-4) Leukocytes, UA (test Large Negative A code = 5799-2) Urobilinogen, UA 0.2 0.2-1.0 (test code = 69777-1) RBC, UA (test code = 34 See_Comment [Autom ated 24816-5) message] The system which generated this result [...] . Bacteria, UA (test Few code = 74989-4) Squam Epithel, UA See_Comment [Automate d (test code = 14470-1) messag e] The system which generated this result transmit bandar reference range : /HPF. The reference range was not used to interpret this result as normal/abnormal . Specimen Source (test code = 2795) ROBERT (test code = ROBERT) Store Consultant ID - [auto]Store Consultant ID - tech Lab Interpretation Abnormal (test code = 49707-0) [facility] Reflex [facility] Culture 2022-05-18 16:12:56 Test Item Value Reference Range Interpretation Comments Color, UA (test code Yellow = 5778-6) Clarity, UA (test Hazy code = 5767-9) Specific [place], UA 1.045 1.001-1.035 H (test code = 5811-5) pH, UA (test code = 6.5 5.0-8.0 5803-2) Protein, UA (test 20 mg/dL Negative A code = 66565-8) Glucose, UA (test Negative Negative code = 365) Ketones, UA (test Negative Negative code = 2514-8) Bilirubin, UA (test Negative Negative code = 75851-3) Blood, UA (test code Moderate Negative A = 22360-4) Nitrite, UA (test Negative Negative code = 5802-4) Leukocytes, UA (test Large Negative A code = 5799-2) Urobilinogen, UA 0.2 0.2-1.0 (test code = 41496-2) RBC, UA (test code = 34 See_Comment [Autom ated 62056-2) message] The system which generated this result [...] . Bacteria, UA (test Few code = 65359-8) Squam Epithel, UA See_Comment [Automate d (test code = 15419-0) messag e] The system which generated this result transmit bandar reference range : /HPF. The reference range was not used to interpret this result as normal/abnormal . Specimen Source (test code = 2795) ROBERT (test code = ROBERT) Store Consultant ID - [auto]Store Consultant ID - tech Lab Interpretation Abnormal (test code = 19380-8) [facility] Reflex [facility] Culture 2022-05-18 16:12:56 Test Item Value Reference Range Interpretation Comments Color, UA (test code Yellow = 5778-6) Clarity, UA (test Hazy code = 5767-9) Specific [place], UA 1.045 1.001-1.035 H (test code = 5811-5) pH, UA (test code = 6.5 5.0-8.0 5803-2) Protein, UA (test 20 mg/dL Negative A code = 04814-0) Glucose, UA (test Negative Negative code = 365) Ketones, UA (test Negative Negative code = 2514-8) Bilirubin, UA (test Negative Negative code = 98454-0) Blood, UA (test code Moderate Negative A = 27282-5) Nitrite, UA (test Negative Negative code = 5802-4) Leukocytes, UA (test Large Negative A code = 5799-2) Urobilinogen, UA 0.2 0.2-1.0 (test code = 42773-1) RBC, UA (test code = 34 See_Comment [Autom ated 95484-2) message] The system which generated this result [...] . Bacteria, UA (test Few code = 23403-2) Squam Epithel, UA See_Comment [Automate d (test code = 81967-3) messag e] The system which generated this result transmit bandar reference range : /HPF. The reference range was not used to interpret this result as normal/abnormal . Specimen Source (test code = 2795) ROBERT (test code = ROBERT) Store Consultant ID - [auto]Store Consultant ID - tech Lab Interpretation Abnormal (test code = 61002-3) [facility] Reflex [facility] Culture 2022-05-18 16:12:56 Test Item Value Reference Range Interpretation Comments Color, UA (test code Yellow = 5778-6) Clarity, UA (test Hazy code = 5767-9) Specific [place], UA 1.045 1.001-1.035 H (test code = 5811-5) pH, UA (test code = 6.5 5.0-8.0 5803-2) Protein, UA (test 20 mg/dL Negative A code = 72131-0) Glucose, UA (test Negative Negative code = 365) Ketones, UA (test Negative Negative code = 2514-8) Bilirubin, UA (test Negative Negative code = 67472-3) Blood, UA (test code Moderate Negative A = 20234-4) Nitrite, UA (test Negative Negative code = 5802-4) Leukocytes, UA (test Large Negative A code = 5799-2) Urobilinogen, UA 0.2 0.2-1.0 (test code = 29662-6) RBC, UA (test code = 34 See_Comment [Autom ated 96162-3) message] The system which generated this result [...] . Bacteria, UA (test Few code = 47460-3) Squam Epithel, UA See_Comment [Automate d (test code = 53070-0) messag e] The system which generated this result transmit bandar reference range : /HPF. The reference range was not used to interpret this result as normal/abnormal . Specimen Source (test code = 2795) ROBERT (test code = ROBERT) Store Consultant ID - [auto]Store Consultant ID - tech Lab Interpretation Abnormal (test code = 07596-8) [facility] Reflex [facility] Culture 2022-05-18 16:12:56 Test Item Value Reference Range Interpretation Comments Color, UA (test code Yellow = 5778-6) Clarity, UA (test Hazy code = 5767-9) Specific [place], UA 1.045 1.001-1.035 H (test code = 5811-5) pH, UA (test code = 6.5 5.0-8.0 5803-2) Protein, UA (test 20 mg/dL Negative A code = 22227-1) Glucose, UA (test Negative Negative code = 365) Ketones, UA (test Negative Negative code = 2514-8) Bilirubin, UA (test Negative Negative code = 85721-8) Blood, UA (test code Moderate Negative A = 17003-6) Nitrite, UA (test Negative Negative code = 5802-4) Leukocytes, UA (test Large Negative A code = 5799-2) Urobilinogen, UA 0.2 0.2-1.0 (test code = 59253-1) RBC, UA (test code = 34 See_Comment [Autom ated 87127-8) message] The system which generated this result [...] . Bacteria, UA (test Few code = 34901-9) Squam Epithel, UA See_Comment [Automate d (test code = 65783-5) messag e] The system which generated this result transmit bandar reference range : /HPF. The reference range was not used to interpret this result as normal/abnormal . Specimen Source (test code = 2795) ROBERT (test code = ROBERT) Store Consultant ID - [auto]Store Consultant ID - tech Lab Interpretation Abnormal (test code = 32299-2) [facility] Reflex [facility] Culture 2022-05-18 16:12:56 Test Item Value Reference Range Interpretation Comments Color, UA (test code Yellow = 5778-6) Clarity, UA (test Hazy code = 5767-9) Specific [place], UA 1.045 1.001-1.035 H (test code = 5811-5) pH, UA (test code = 6.5 5.0-8.0 5803-2) Protein, UA (test 20 mg/dL Negative A code = 32880-5) Glucose, UA (test Negative Negative code = 365) Ketones, UA (test Negative Negative code = 2514-8) Bilirubin, UA (test Negative Negative code = 51162-4) Blood, UA (test code Moderate Negative A = 00065-9) Nitrite, UA (test Negative Negative code = 5802-4) Leukocytes, UA (test Large Negative A code = 5799-2) Urobilinogen, UA 0.2 0.2-1.0 (test code = 54030-6) RBC, UA (test code = 34 See_Comment [Autom ated 42820-7) message] The system which generated this result [...] . Bacteria, UA (test Few code = 71763-7) Squam Epithel, UA See_Comment [Automate d (test code = 54827-0) messag e] The system which generated this result transmit bandar reference range : /HPF. The reference range was not used to interpret this result as normal/abnormal . Specimen Source (test code = 2795) ROBERT (test code = ROBERT) Store Consultant ID - [auto]Store Consultant ID - tech Lab Interpretation Abnormal (test code = 63886-6) [facility]18 16:12:56 Test Item Value Reference Range Interpretation Comments Color, UA (test code Yellow = 5778-6) Clarity, UA (test Hazy code = 5767-9) Specific [place], UA 1.045 1.001-1.035 H (test code = 5811-5) pH, UA (test code = 6.5 5.0-8.0 5803-2) Protein, UA (test 20 mg/dL Negative A code = 77781-8) Glucose, UA (test Negative Negative code = 365) Ketones, UA (test Negative Negative code = 2514-8) Bilirubin, UA (test Negative Negative code = 94879-5) Blood, UA (test code Moderate Negative A = 33828-2) Nitrite, UA (test Negative Negative code = 5802-4) Leukocytes, UA (test Large Negative A code = 5799-2) Urobilinogen, UA 0.2 0.2-1.0 (test code = 96694-8) RBC, UA (test code = 34 See_Comment [Autom ated 66278-3) message] The system which generated this result [...] . Bacteria, UA (test Few code = 78053-6) Squam Epithel, UA See_Comment [Automate d (test code = 92194-7) messag e] The system which generated this result transmit bandar reference range : /HPF. The reference range was not used to interpret this result as normal/abnormal . Specimen Source (test code = 2795) ROBERT (test code = ROBERT) Store Consultant ID - [auto]Store Consultant ID - tech Lab Interpretation Abnormal (test code = 38373-8) [facility] Ref[facility] Culture 2022-05-18 16:12:56 Test Item Value Reference Range Interpretation Comments Color, UA (test code Yellow = 5778-6) Clarity, UA (test Hazy code = 5767-9) Specific [place], UA 1.045 1.001-1.035 H (test code = 5811-5) pH, UA (test code = 6.5 5.0-8.0 5803-2) Protein, UA (test 20 mg/dL Negative A code = 80437-9) Glucose, UA (test Negative Negative code = 365) Ketones, UA (test Negative Negative code = 2514-8) Bilirubin, UA (test Negative Negative code = 93125-2) Blood, UA (test code Moderate Negative A = 54511-7) Nitrite, UA (test Negative Negative code = 5802-4) Leukocytes, UA (test Large Negative A code = 5799-2) Urobilinogen, UA 0.2 0.2-1.0 (test code = 01880-2) RBC, UA (test code = 34 See_Comment [Autom ated 12671-4) message] The system which generated this result [...] . Bacteria, UA (test Few code = 13470-4) Squam Epithel, UA See_Comment [Automate d (test code = 87270-1) messag e] The system which generated this result transmit bandar reference range : /HPF. The reference range was not used to interpret this result as normal/abnormal . Specimen Source (test code = 2795) ROBERT (test code = ROBERT) Store Consultant ID - [auto]Store Consultant ID - tech Lab Interpretation Abnormal (test code = 77148-8) [facility] Ref[facility] Culture 2022-05-18 16:12:56 Test Item Value Reference Range Interpretation Comments Color, UA (test code Yellow = 5778-6) Clarity, UA (test Hazy code = 5767-9) Specific [place], UA 1.045 1.001-1.035 H (test code = 5811-5) pH, UA (test code = 6.5 5.0-8.0 5803-2) Protein, UA (test 20 mg/dL Negative A code = 85076-7) Glucose, UA (test Negative Negative code = 365) Ketones, UA (test Negative Negative code = 2514-8) Bilirubin, UA (test Negative Negative code = 23752-0) Blood, UA (test code Moderate Negative A = 29163-1) Nitrite, UA (test Negative Negative code = 5802-4) Leukocytes, UA (test Large Negative A code = 5799-2) Urobilinogen, UA 0.2 0.2-1.0 (test code = 32937-2) RBC, UA (test code = 34 See_Comment [Autom ated 59110-7) message] The system which generated this result [...] . Bacteria, UA (test Few code = 14930-9) Squam Epithel, UA See_Comment [Automate d (test code = 91565-9) messag e] The system which generated this result transmit bandar reference range : /HPF. The reference range was not used to interpret this result as normal/abnormal . Specimen Source (test code = 2795) ROBERT (test code = ROBERT) Store Consultant ID - [auto]Store Consultant ID - tech Lab Interpretation Abnormal (test code = 27809-0) [facility] [id number] 16:12:56 Test Item Value Reference Range Interpretation [...] = 516) SOURCE(BEAKER) (test code = 2795) Store Consultant ID - [auto]Store Consultant ID - techPROTHROMBIN [id number] 16:02:01 Test Item Value Reference Range Interpretation Comments PROTIME (BEAKER) (test code = 25.8 seconds 11.9-14.2 H 759) INR (BEAKER) (test code = 370) 2.54 <=5.90 RECOMMENDED COUMADIN/WARFARIN INR THERAPY RANGESSTANDARD DOSE: 2.0 - 3.0 Includes: PROPHYLAXIS for venous thrombosis, systemic embolization; TREATMENT for venous thrombosis and/or pulmonary embolus.HIGH RISK: Target INR is 2.5-3.5 for patients with mechanical heart valves.CALCIUM, [id number] 13:31:38 Test Item Value Reference Range Interpretation [...] 0-0 (BEAKER) (test code = 413) POCT-GLUCOSE [id number] 13:07:25 Test Item Value Reference Range Interpretation Comments POC-GLUCOSE METER 81 mg/dL 70-110 : TESTED A T [facility] 6720 (BEAKER) (test code = [place], 1538) [address]: Store Consultant/Techni valarie ID = [id number] for Scarlet Maravilla B-TYPE NATRIURETIC FACTOR (BNP)2022-05-18 11:38:06 Test Item Value Reference Range Interpretation Comments B-TYPE NATRIURETIC PEPTIDE (BEAKER) 97 pg/mL 0-100 (test code = 700) Store Consultant ID - FANTASMA [id number] 11:34:39 Test Item Value Reference Range Interpretation Comments FIBRINOGEN LEVEL (BEAKER) (test 440 mg/dl 225-434 H code = 658) [id number] 11:32:28 Test Item Value Reference Range Interpretation Comments LIPASE (BEAKER) (test code = 749) 13 U/L 8-78 Store Consultant ID - FANTASMA BCOMPREHENSIVE METABOLIC [id number] 11:32:27 Test Item Value Reference Range Interpretation [...] not appl icable for dialysis patien ts Store Consultant ID - FANTASMA [id number] 11:32:27 Test Item Value Reference Range Interpretation Comments MAGNESIUM (BEAKER) (test code = 1.7 mg/dL 1.6-2.6 627) Store Consultant ID - FANTASMA [id number] 11:32:27 Test Item Value Reference Range Interpretation Comments PHOSPHORUS (BEAKER) (test code = 2.9 mg/dL 2.3-4.7 604) Store Consultant ID - FANTASMA [id number] 11:21:21 Test Item Value Reference Range Interpretation Comments PROTIME (BEAKER) (test code = 29.0 seconds 11.9-14.2 H 759) INR (BEAKER) (test code = 370) 2.95 <=5.90 PARTIAL THROMBOPLASTIN TIME 48.2 seconds 22.5-36.0 H (KODIAKER) (test code = 760) RECOMMENDED COUMADIN/WARFARIN INR THERAPY RANGESSTANDARD DOSE: 2.0 - 3.0 Includes: PROPHYLAXIS for venous thrombosis, systemic embolization; TREATMENT for venous thrombosis and/or pulmonary embolus.HIGH RISK: Target INR is 2.5-3.5 for patients with mechanical heart valves.LACTIC ACID, [id number] 11:20:59 Test Item Value Reference Range Interpretation Comments LACTATE BLOOD VENOUS (2) (JIM) 1.40 mmol/L 0.50-2.20 (test code = 2872) Store Consultant RASHAAD Butler"
[2023-02-23] MEDS ORDERED: ONDANSETRON 4 MG/2 ML VIAL ONE (21:33)
[2023-02-23] MEDS ORDERED: FAMOTIDINE 20 MG/2 ML VIAL IV ONE (21:33)
[2023-02-23] MEDS ORDERED: NA CHLORIDE 0.9% 1,000 ML ONE (21:33)
[2023-02-23 21:49] LABS: Absolute Lymphocytes (CBC) 0.7 K/uL (0.7-4.9); Hematocrit 27.5 % (36.0-45.0); Lymphocytes % 13.2 % (15.3-44.8); MCV 99.3 fL (80-100); MPV 8.5 fL (7.6-11.3); Platelets 178 thou/uL (152-406); RBC Red Blood Cell Count 2.77 M/uL (3.86-4.86)
[2023-02-23 22:04] LABS: Albumin 3.1 g/dL (3.4-5.0); Bilirubin Total 0.6 mg/dL (0.2-1.0); Potassium 3.3 mEq/L (3.5-5.1); Protein, Total 6.3 g/dL (6.4-8.2)
--- NOTE | 2023-02-24 00:33 | ER ---
Nurse's Notes [facility] Name: iMchelle Saavedra Age: 67 yrs Sex: Female : 1955 Arrival Date: 02/23/2023 Time: 20:37 Bed 19 Private MD: Diagnosis: Anemia, unspecified;Diarrhea, unspecified;Other cholelithiasis without obstruction Presentation: 02/23 20:51 Chief complaint: Patient states: diarrhea, abdominal pain, vomiting, chest pain and cm10 back pain onset 3 days ago. Coronavirus screen: Vaccine status: Patient reports being unvaccinated. Client denies travel out of the [place] in the last 14 days. Ebola Screen: Patient denies travel to an Ebola-affected area in the 21 days before illness onset. No symptoms or risks identified at this time. Initial Sepsis Screen: Does the patient meet any 2 criteria? No. Patient's initial sepsis screen is negative. Does the patient have a suspected source of infection? No. Patient's initial sepsis screen is negative. Risk Assessment: Do you want to hurt yourself or someone else? Patient reports no desire to harm self or others. Onset of symptoms was February 23, 2023. 20:51 Method Of Arrival: Wheelchair cm10 20:51 Acuity: JAKUB 3 cm10 Triage Assessment: 21:00 General: Appears in no apparent distress. Behavior is calm, cooperative, appropriate bp for age. Pain: Denies pain. GI: Reports diarrhea. Historical: - Allergies: 20:51 Morphine; cm10 - PMHx: 20:51 Atrial fibrillation; Hypercholesterolemia; Hypertensive disorder; mechanical valve; cm10 - Immunization history:: Adult Immunizations unknown. - Social history:: Smoking status: Patient denies any tobacco usage or history of. Screenin:00 [facility] ED Fall Risk Assessment (Adult) History of falling in the last 3 months, bp including since admission No falls in past 3 months (0 pts). Abuse screen: Denies threats or abuse. Denies injuries from another. Nutritional screening: No deficits noted. Tuberculosis screening: No symptoms or risk factors identified. Assessment: 21:00 General: SEE TRIAGE NOTE. bp 23:00 Reassessment: Patient appears in no apparent distress at this time. Patient is alert, bp oriented x 3, equal unlabored respirations, skin warm/dry/pink. Vital Signs: 20:51 BP 162 / 48; Pulse 66; Resp 18; Temp 97.8(IR); Pulse Ox 96% on R/A; Weight 45.81 kg; cm10 Height 5 ft. 3 in. ; Pain 10/; 23:05 BP 153 / 55; Pulse 66; Resp 16; Pulse Ox 98% ; bp 20:51 Body Mass Index 17.89 (45.81 kg, 160.02 cm) cm10 20:51 Pain Scale: Adult cm10 ED Course: 20:40 Patient arrived in ED. kj1 20:47 Murray Burns, RN is Primary Nurse. bp 20:47 Jesus Alberto Edwards DO is Attending Physician. ms3 20:52 Triage completed. cm10 20:52 Arm band placed on Patient placed in an exam room, on a stretcher. cm10 21:00 Patient has correct armband on for positive identification. Bed in low position. Call bp light in reach. Side rails up X2. 21:11 Radiology exam delayed due to lab results not completed at this time. (BUN/Creatinine) eh4 IV insertion attempt and/or patient not having appropriate IV at this time. 21:30 Inserted saline lock: 22 gauge in right forearm, using aseptic technique. Blood bp collected. 22:25 CT Abd/Pelvis - IV Contrast Only In Process Unspecified. EDMS 02/24 00:31 Sony Valdivia DO is Referral Physician. ms3 00:48 No provider procedures requiring assistance completed. IV discontinued, intact, bp bleeding controlled, No redness/swelling at site. Pressure dressing applied. Administered Medications: 02/23 21:35 Drug: NS 0.9% IV 1000 ml IV at 1 bolus Per protocol; 1000 mL bolus Route: IV; Rate: 1 bp bolus; Site: right forearm; 02/24 00:49 Follow up: IV Status: Completed infusion; IV Intake: 1000ml bp 02/23 21:35 Drug: Famotidine IVP 20 mg IVP once; dilute with 10 mL 0.9% NaCl; give over 2 minutes bp Route: IVP; Site: right forearm; 02/24 00:49 Follow up: Response: No adverse reaction bp 02/23 21:35 Drug: Ondansetron IVP 4 mg IVP once; over 2 minutes Route: IVP; Site: right forearm; bp 02/24 00:49 Follow up: Response: No adverse reaction bp Medication: 02/23 21:00 VIS not applicable for this client. bp Intake: 02/24 00:49 IV: 1000ml; Total: 1000ml. bp Outcome: 00:32 Discharge ordered by . ms3 00:48 Discharged to home via wheelchair, with family, bp 00:48 Condition: stable 00:48 Discharge instructions given to patient, Instructed on discharge instructions, follow up and referral plans. Demonstrated understanding of instructions, follow-up care, 00:50 Patient left the ED. bp Signatures: Dispatcher [employer] EDMurray Deal, RN RN bp Judy Espinal kj1 Jesus Alberto Edwards DO DO ms3 Jaycee Stokes 4 Tamie Villalobos, RN RN cm10
--- NOTE | 2023-02-24 00:33 | EDPHYS ---
Physician Documentation [facility] Name: Michelle Saavedra Age: 67 yrs Sex: Female : 1955 Arrival Date: 02/23/2023 Time: 20:37 Bed 19 Private MD: ED Physician Jesus Alberto Edwards HPI: 02/23 21:07 This 67 yrs old Female presents to ER via Wheelchair with complaints of ms3 Diarrhea - DEHYDRATION. 21:07 67-year-old female with past medical history of atrial fibrillation, ms3 hypercholesterolemia, hypertension, mechanical valve presents to the emergency department for diarrhea that has been ongoing for 3 days. Patient states she feels dehydrated. Patient states she had 6 episodes of diarrhea today. Patient denies any recent antibiotic use or sick contacts.. Historical: - Allergies: 20:51 Morphine; cm10 - PMHx: 20:51 Atrial fibrillation; Hypercholesterolemia; Hypertensive disorder; mechanical valve; cm10 - Immunization history:: Adult Immunizations unknown. - Social history:: Smoking status: Patient denies any tobacco usage or history of. ROS: 21:07 Constitutional: Negative for fever, and chills. Neck: Negative for injury, pain, and ms3 swelling, Cardiovascular: Negative for chest pain, and palpitations. Respiratory: Negative for shortness of breath, cough, wheezing, and pleuritic chest pain, MS/Extremity: Negative for injury and deformity, Skin: Negative for injury, rash, and discoloration, 21:07 Abdomen/GI: Positive for abdominal pain, diarrhea, 21:07 All other systems are negative, Exam: 21:07 Constitutional: This is a well developed, well nourished patient who is awake, alert, ms3 and in no acute distress. Head/Face: Normocephalic, atraumatic. Neck: Trachea midline, no cervical lymphadenopathy. Supple, full range of motion without nuchal rigidity, or vertebral point tenderness. No Meningismus. Chest/axilla: Normal chest wall appearance and motion. Nontender with no deformity. Cardiovascular: Regular rate and rhythm with a normal S1 and S2. No gallops, murmurs, or rubs. Normal PMI, no JVD. No pulse deficits. Respiratory: Lungs have equal breath sounds bilaterally, clear to auscultation and percussion. No rales, rhonchi or wheezes noted. No increased work of breathing, no retractions or nasal flaring. 21:07 Abdomen/GI: Inspection: abdomen appears normal, Bowel sounds: normal, Palpation: moderate abdominal tenderness, in all quadrants, Vital Signs: 20:51 BP 162 / 48; Pulse 66; Resp 18; Temp 97.8(IR); Pulse Ox 96% on R/A; Weight 45.81 kg; cm10 Height 5 ft. 3 in. ; Pain 10/; 23:05 BP 153 / 55; Pulse 66; Resp 16; Pulse Ox 98% ; bp 20:51 Body Mass Index 17.89 (45.81 kg, 160.02 cm) cm10 20:51 Pain Scale: Adult cm10 MDM: 21:05 Patient medically screened. ms3 21:07 Differential diagnosis: Nonspecific abd pain, viral gastroenteritis, gastroenteritis, ms3 Dehydration. 11 00:32 Data reviewed: vital signs, nurses notes, lab test result(s), radiologic studies, and ms3 as a result, I will discharge patient. I considered the following discharge prescriptions or medication management in the emergency department Medications were administered in the Emergency Department. See MAR. Care significantly affected by the following chronic conditions: Hypertension. Counseling: I had a detailed discussion with the patient and/or guardian regarding the historical points, exam findings, and any diagnostic results supporting the discharge/admit diagnosis, lab results, radiology results, the need for outpatient follow up, to return to the emergency department if symptoms worsen or persist or if there are any questions or concerns that arise at home. Response to treatment: the patient's symptoms have mildly improved after treatment. Special discussion: I discussed with the patient/guardian in detail that at this point there is no indication for admission to the hospital. It is understood, however, that if the symptoms persist or worsen the patient needs to return immediately for re-evaluation. ED course: Discussed the labs and CT findings with patient. Patient to follow-up with her primary care physician in 2 to 3 days. Patient understands and agrees with plan. All questions were answered. Return precautions discussed include worsening symptoms, or any other concerns. 02/23 21:07 Order name: CBC with Diff; Complete Time: 22:05 ms3 02/23 21:07 Order name: CMP; Complete Time: 22:05 ms3 02/23 21:07 Order name: Lipase; Complete Time: 22:05 ms3 02/23 21:07 Order name: CT Abd/Pelvis - IV Contrast Only ms3 02/23 21:07 Order name: IV Saline Lock; Complete Time: 21:35 ms3 02/23 21:07 Order name: Labs collected and sent; Complete Time: 21:35 ms3 Administered Medications: 02/23 21:35 Drug: NS 0.9% IV 1000 ml IV at 1 bolus Per protocol; 1000 mL bolus Route: IV; Rate: 1 bp bolus; Site: right forearm; 02/24 00:49 Follow up: IV Status: Completed infusion; IV Intake: 1000ml bp 02/23 21:35 Drug: Famotidine IVP 20 mg IVP once; dilute with 10 mL 0.9% NaCl; give over 2 minutes bp Route: IVP; Site: right forearm; 02/24 00:49 Follow up: Response: No adverse reaction bp 02/23 21:35 Drug: Ondansetron IVP 4 mg IVP once; over 2 minutes Route: IVP; Site: right forearm; bp 02/24 00:49 Follow up: Response: No adverse reaction bp Disposition Summary: 02/24/23 00:32 Discharge Ordered Notes: Location: Home ms3 Condition: Stable ms3 Diagnosis - Anemia, unspecified ms3 - Diarrhea, unspecified ms3 - Other cholelithiasis without obstruction ms3 Followup: ms3 - With: Sony Valdivia DO - When: 2 - 3 days - Reason: Recheck today's complaints Discharge Instructions: - Discharge Summary Sheet ms3 - Anemia ms3 - Food Choices to Help Relieve Diarrhea, Adult ms3 - Diarrhea, Adult ms3 Forms: - Medication Reconciliation Form ms3 - Thank You Letter ms3 - Antibiotic Education ms3 - Prescription Opioid Use ms3 - Patient Portal Instructions ms3 - Leadership Thank You Letter ms3 Signatures: Dispatcher [employer] Murray Omer, RN RN Jesus Alberto Reese DO DO ms3 Tamie Villalobos, RN RN cm10
[2023-02-24 00:55] VITALS: TEMP 97.8
[2023-02-24 00:57] VITALS: BP 153/55; O2SAT 98
--- NOTE | 2023-02-26 10:17 | RAD REPORT ---
EXAM DESCRIPTION: CT - Abdomen Pelvis W Contrast - 02/24/2023 6:50 am CLINICAL HISTORY: 67 years Female ABD PAIN COMPARISON: None TECHNIQUE: Images were obtained in axial, sagittal, and coronal planes. Intravenous contrast was adm inistered. This exam was performed according to our departmental dose-optimization program which includes use of Automated Exposure Control, adjustment of the mA and/or kV according to patient size and/or use of iterative reconstruction technique. FINDINGS: No abnormality involving the liver, spleen, pancreas, or adrenal glands bilaterally. Multi ple calcified gallstones within the gallbladder. Contracted gallbladder with gallbladder wall thicken ing. Small hiatal hernia. No obstructing renal or ureteral calculi bilaterally. No hydronephrosis bilaterally. Mildly distended bladder. Appendix within normal limits. No bowel obstruction or perforation. Mucosal thickening jejunum and il eum. Marked calcification abdominal aorta. No dilatation seen. Unremarkable portal vein. No adenopathy or abnormal fluid collections. Chronic changes lower lungs bilaterally. Compression fracture L1 vertebral body unchanged. Posterior convexity superior aspect L1 vertebral yong dy with fymi-mn-yfhaomgo narrowing of spinal canal unchanged. IMPRESSION: Findings consistent with enteritis. No bowel obstruction or perforation. Cholelithiasis with gallbladder wall thickening. Remaining findings unchanged when correlated with the prior study. Electronically signed by: Wendie Santos MD 02/23/2023 11:56 PM TRACTOR EXPERT Due to temporary technical issues with the PACS/Fluency reporting system, reports are being signed by the in house radiologists without review as a courtesy to insure prompt reporting. The interpreting radiologist is fully responsible for the content of the report.
== END 2023-02-24 00:50 | disposition home or self-care (01) ==
LOC: ER 20:37
DX: K80.80 Other cholelithiasis without obstruction (principal); D64.9 Anemia, unspecified; R19.7 Diarrhea, unspecified; I10 Essential (primary) hypertension; I48.91 Unspecified atrial fibrillation; Z95.4 Presence of other heart-valve replacement; Z88.5 Allergy status to narcotic agent
CPT/HCPCS: 96361; 85025; 36415; 83690; 80053; 74177; 96375; 96374; 99284; Q9967; J2405; J7030

== ENCOUNTER 2023-02-26 05:51 | Observation (INO) | payer OTHER ==
[2023-02-20 12:09] LABS: Absolute Lymphocytes (CBC) 0.8 K/uL (0.7-4.9); Hematocrit 29.1 % (36.0-45.0); Lymphocytes % 11.3 % (15.3-44.8); MCV 101.1 fL (80-100); MPV 8.6 fL (7.6-11.3); Platelets 179 thou/uL (152-406); RBC Red Blood Cell Count 2.88 M/uL (3.86-4.86)
[2023-02-20 12:12] LABS: Protime INR 2.8
[2023-02-20 12:22] LABS: Albumin 3.7 g/dL (3.4-5.0); Bilirubin Total 0.8 mg/dL (0.2-1.0); Potassium 4.2 mEq/L (3.5-5.1); Protein, Total 7.1 g/dL (6.4-8.2)
[2023-02-20 12:28] LABS: Specific Gravity 1.014 (1.005-1.030); Urine Bacteria <20 /HPF (<20); Urine Bilirubin NEGATIVE (Negative); Urine Blood 1+ (Negative); Urine Clarity Turbid (Clear); Urine Color Light-Yellow (Yellow); Urine Glucose NEGATIVE (Negative); Urine Mucus Slight /HPF (None Seen); Urine Protein NEGATIVE (Negative); Urine RBC 21-50 /HPF (None Seen); Urine Urobilinogen Normal (Normal); Urine pH 7.5 (5.0-7.0)
[2023-02-26 06:50] LABS: Hematocrit 28.5 % (36.0-45.0)
[2023-02-26] MEDS ORDERED: GABAPENTIN 100 MG CAP PO ONE (06:51)
[2023-02-26] MEDS ORDERED: CELECOXIB 100 MG CAPSULE PO ONE (06:51)
[2023-02-26] MEDS ORDERED: ACETAMINOPHEN 500 MG TAB PO ONE (06:51)
[2023-02-26] MEDS ORDERED: CEFAZOLIN SODIUM 2 GM/VIAL ONE (06:56)
[2023-02-26 06:57] LABS: Protime INR 1.41
[2023-02-26] MEDS ORDERED: Oxycodone HCl/Acetaminophen 5/325 MG TAB ONE (06:57)
[2023-02-26] MEDS ORDERED: Ringers Lactate 1,000 ML IV ONE ×2 (06:58→11:05)
[2023-02-26] MEDS ORDERED: FENTANYL CITR 100 MCG/2 ML ONE (07:09)
[2023-02-26] MEDS ORDERED: LIDOCAINE 2% MPF 5 ML VIAL ONE ×2 (07:10→07:38)
[2023-02-26] MEDS ORDERED: ONDANSETRON 4 MG/2 ML VIAL ONE (07:10)
[2023-02-26] MEDS ORDERED: DEXMEDETOMIDINE HCL 200 MCG/2 ML VIAL ONE (07:31)
[2023-02-26] MEDS ORDERED: EPHEDRINE SULF 50 MG/ML VIAL ONE (08:39)
[2023-02-26] MEDS ORDERED: ONDANSETRON 4 MG/2 ML VIAL IV PRN (09:11)
[2023-02-26] MEDS ORDERED: DOCUSATE NA 100 MG CAP PO PRN (09:11)
--- NOTE | 2023-02-26 09:19 | P.BOP ---
Preoperative diagnosis: right hip arthritis Postoperative diagnosis: same Primary procedure: right total hip arthoplasty Estimated blood loss: 100 ccs Anesthesia: General Complications: None Transferred to: Recovery Room Condition: Good
--- NOTE | 2023-02-26 09:33 | RAD REPORT ---
EXAM DESCRIPTION: - Hip in OR Right 1 View - 02/26/2023 8:41 am CLINICAL HISTORY: TOTAL HIP REP COMPARISON: Abdomen Pelvis W Contrast dated 02/23/2023 FINDINGS/IMPRESSION: Two intraoperative radiographs obtained showing placement of a right hip arthro plasty.
[2023-02-26] MEDS ORDERED: EPINEPHRINE/PF 1 MG/ML AMP ONE (09:47)
[2023-02-26] MEDS ORDERED: LIDOCAINE 1% MPF 5 ML VIAL ONE (09:47)
[2023-02-26] MEDS ORDERED: NEOSTIGMINE 1 MG/ML -10 ML VIAL ONE (09:48)
--- NOTE | 2023-02-26 10:32 | OP ---
Date of Procedure: 02/26/2023 Surgeon: Jitendra Nelson MD Preoperative Diagnosis: Right severe hip arthritis with alja-tr-cifj changes with severe limitations of motion and severe pain. Postoperative Diagnosis: Right severe hip arthritis with htol-we-idli changes with severe limitation s of motion and severe pain. Procedure: Right total hip arthroplasty using the Cori hip system. Estimated Blood Loss: 100 cc. Complications: There were no complications. Indications For Operation: Ms. Saavedra is a 67-year-old female who unfortunately suffers from debilit ating pain in her right hip. She came to see me for this and has obvious horrible arthritis in her h ip. She was sent for medical clearance and was essentially cleared. However, her hemoglobin was low at that point. Decision was made to try to medically optimize her if we have any time, whatsoever. She was seen by another physician who gave her iron infusions and worked with her closely. Unfortun ately, her hemoglobin only yomi to 9.6 with working on this for a while and decision was made to disc uss with the patient and move forward. She knows that she may need a transfusion at some point, but wants to proceed and does not want to delay any longer. All other risks, benefits, and alternatives of procedure discussed with her. She states she understands things as presented and wishes to procee d. Description Of Procedure: Patient was taken to the operating room, placed in supine position. Gener al anesthesia was easily obtained by the Anesthesia staff. Following this, she was then rolled left side down with an axillary roll. All her bony prominences being checked. She was then properly posi tioned using hip positioner. Her right lower extremity was then prepped and draped in the usual ster ile fashion for the procedure. Following this, an incision was taken down carefully through skin and soft tissues. Meticulous hemostasis being maintained using Bovie electrocautery especially sensitiv e to blood loss because of the patient's hemoglobin. The fascia was encountered. A small stab wound was made in the fascia, which demonstrates correct placement of incision. This was then taken out g ently to near the tip of the greater trochanter where the abductors were protected as the external ro tators and capsule were then tagged for later repair. It should be noticed that the sciatic nerve is noticed more or less immediately after a release of the fascia because it was superficial to the ext ernal rotators and because she is so thin, great care was made to protect even the placement of the C harnley as well as any instruments including retractors to try to avoid any injury to the sciatic ner ve and was protected throughout the case. After the external rotators and capsule are tagged for lat er repair, the hip was examined, was found to be severely arthritic with a collar of osteophytes on t he head limiting motion. A portion of the labrum was removed superiorly and posteriorly and the hip was dislocated. After this, the neck was then cut at slightly shorter than standard length and the h ead was then sized using ring gauges. This was somewhat difficult because of the shape of the head, however, it appears to be about a 46. After this, attention was turned back to the acetabulum where the remainder of soft tissue was removed. It does appear to be a little bit flattened superiorly and anteriorly and the remainder of the labrum was removed. After this, it was then sequentially reamed up to a size 49 where it did have bleeding bone. It was noted that she does have very thin tucker an d fairly fragile bone. Decision not made to overream this any significant amount or deepen it becaus e of concern about coverage. The cup was then placed in standard fashion, appears to be very well se ated with use of thumb pressure. Does have a little overhang, but not much. Attention was then turn ed to the femur and the call box wirer was used to lateralize the placement of the stem. It was then seq uentially broached up to a size 5. The size 5 appeared to fit well. An x-ray was taken which demons trates the size 5 broach and the cup. Decision was made to go ahead and place the safety screw in th e cup, as there was a little overhang and we definitely did not overream and this was placed without difficulty. This was followed by placement of the liner. The final 5 stem was then placed without d ifficulty and attempts were made to relocate the hip. There are no minus options for the MDM and fel t that this was significantly too long for our purposes and although lengthening her some may be bene ficial as she does have some shortening, there was a concern that this was over-lengthening even with the shortest ball construct. The stem was then removed. The neck was then recut more distally allo wing for good position of the size 4 broach. As a size 4 broach was well positioned, decision was ma de to move forward with size 4 stem, which is somewhat beneficial in decreasing the length and it now would relocate quite easily. It comes to full extension with a little overpressure. Flexion to 90 degrees and internal rotation to 45 degrees does not cause dislocation. Decision was made to move fo mahad as this was the final ball. It was then placed without difficulty and is stable in the above a reas. The sciatic nerve was protected with all of these trialing as well and monitored. It does not appear to have any significant trauma to at the conclusion of the case as it was inspected. Followi ng this, the wound was irrigated and the external rotators and capsule were then repaired back to the greater trochanter via 2 bone tunnels as well as soft tissue. It was again irrigated and the fascia was closed using heavy Vicryl followed by closure of the skin with Vicryl followed by scott. The patient was then placed in Aquacel dressing, awakened, taken to recovery room. /DANE Voice ID: [id number] Report ID: [id number]
--- OUTSIDE RECORDS SUMMARY | 2023-02-26 10:53 | XMS REPORT | Continuity of Care Document ---
:1955 Author Organization [facility] t Address [address] [place] [address] Care Team Providers Name Role Phone DANIEL IBRAHIM Primary Care Physician Unavailable DANIEL IBRAHIM Attending Clinician Unavailable Saurabh Dobson Attending Clinician Unavailable MARIIA CARDONA Attending Clinician Unavailable MARIIA CARDONA Attending Clinician Unavailable REBECA HOLCOMB Attending Clinician Unavailable REBECA HOLCOMB Attending Clinician Unavailable GEETA KOROMA Attending Clinician Unavailable GEETA KOROMA Attending Clinician Unavailable JAMAICA DAN Attending Clinician Unavailable Sy LOVELL, [place] Attending Clinician Pob, [facility] Main Attending Clinician Unavailable Georgie Gamez RN Attending Clinician Unavailable RAO CHILDS Attending Clinician Unavailable Mazin Merrill MD Attending Clinician Rao Childs DO Attending Clinician Jeremy Mulligan RN Attending Clinician Unavailable Harris TAYLOR, Babita Guzman Attending Clinician Alicia Smith MD Attending Clinician Doctor Unassigned, [place] Attending Clinician Unavailable WAYNE RABAGO Attending Clinician Unavailable Yolande Santacruz MD Attending Clinician JOSEPH CORTES Attending Clinician Unavailable Sebastian LOVELL, Joseph Manzo Attending Clinician Hima LOVELL, Wayne Attending Clinician Santos LOVELL, Sean Granda Attending Clinician [phone] Joey LOVELL, Vinayak Evans Attending Clinician Lynnette LOVELL, Shadi Jhaveri Attending Clinician [phone] Justo Pagan MD, Franc Calles Attending Clinician [...] Clinician MARIIA CARDONA Admitting Clinician Unavailable VINAYAK COOK NATHAN Admitting Clinician Unavailable REBECA HOLCOMB Admitting Clinician Unavailable CALEB RODRIGUES Admitting Clinician Unavailable Caleb Rodrigues MD Admitting Clinician JENNIFER LO Admitting Clinician Unavailable Jennifer Lo MD Admitting Clinician Payers Payer Name Policy Type Policy Number Effective Date Expiration Date [facility] [id number] 2020 COMP HMO D SNP 00:00:00 [facility] [id number] 2013 PLUS 00:00:00 [place] [id number] 2023 00:00:00 Problems Condition Condition Condition Status Onset [...] Univers pain pain 9-24 ity of 00:00: [place] 00 Medical Branch Insomnia Insomnia Disease Active Unive rs 9-24 ity of 00:00: [place] [facility] Senile Senile Disease Active Univers dementia dementia 9-24 ity of with with 00:00: [place] depression depression 00 [place] dical Branch Fall, Fall, Disease Active Univers initial initial 9-24 ity of encounter encounter 00:00: [facility] Elias [facility] Branch Diarrhea Diarrhea Disease Active Unive rs 9-07 ity of 00:00: [place] 00 Medical Branch 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 00:00: [place] with with 00 Medical preserved preserved Bran ch ejection ejection fraction fraction 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[place] aorta aorta 00 Medical [place] Personal Personal Disease Active Unive rs history [...] valve valve 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 [place] 00 [facility] S/P AVR S/P AVR Disease Recurre [facility] ([facility]07 [facility] valve valve 00:00: [facility] replacemen replacemen 00 Ce nter t) t) Acute Acute Disease Active [facility] blood loss blood loss 2-07 [place] anemia anemia 00:00: [facility] 00 [place] Suprathera Suprathera Disease Active [facility] peutic INR peutic INR 2-07 [facility] 00:00: [facility] 00 Center Fall Fall Disease Active [facility]07 [facility] 00:00: [facility] 00 [place] Acute Acute Disease Active [facility] upper GI upper GI 2-03 [facility] bleed bleed 00:00: [facility] 00 [place] GI bleed GI bleed Disease Active [facility] 00:00: [facility] 00 [place] Atrial Atrial Disease Active Univers fibrillati fibrillati 8-11 it y of on on 00:00: [place] 00 [facility] Branch E44.0 E44.0 Disease Active 2020-04 Univers Moderate Moderate 1-19 ity of protein protein 00:00: [place] calorie calorie 00 Medical malnutriti malnutriti Br anch on on Other Other Disease Active 2020-04 Univers chest pain chest pain 1-19 it y of 00:00: [place] 00 [facility] Chest pain Chest pain Disease Active 2020-04 U nivers 1-17 ity of 00:00: [place] 00 [facility] Elevated Elevated Disease Active 2020-04 Unive [...] 8-20 it y of on on 00:00: [place] [facility] Anticoagul Anticoagul Disease Active U nivers ated ated 8-20 ity of 00:00: [place] 00 Medical Branch Coronary Coronary Disease Active Unive rs artery artery 8-20 ity of disease disease 00:00: [place] involving involving 00 Medi [place] Branch coronary coronary artery of artery of [place] 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 8-20 ity of disease disease 00:00: [place] involving involving 00 Medi tyrone [place] Branch coronary coronary artery of artery of [place] 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 2-20 ity of disease disease 00:00: [place] involving involving 00 Medi tyrone [place] Branch heart heart without without angina [...] Active Univers ALLERGIE Class ity of S [facility] Family History Family Member Diagnosis Comments Start Date Stop Date Source Natural mother Diabetes [facility] Natural mother Heart [facility] Other Diabetes [facility] Natural sister Cancer [facility] Natural sister Diabetes [facility] Social History Social Habit Start Date Stop Date Quantity Comments Source History SDOH Social Unive rsity of Connections [facility] Med ical Together Branch History SDOH Social Unive rsity of Connections [facility] History SDOH Social Unive rsity of Connections [place] [facility] Membership Branch History SDOH Social Unive rsity of Connections [place] [facility] Meetings Branch Gender identity Universit y [facility] Sexual orientation Univer [facility] Exposure to 2022-08-18 2022-08-28 Not sure University of SARS-CoV-2 (event) 00:00:00 12:47:00 [place] [facility] History SDOH 2022-06-07 2022-06-07 1 University o f Alcohol Frequency 00:00:00 00:00:00 [place] M edical Branch History SDOH 2022-06-07 2022-06-07 0 University o f Alcohol Std Drinks 00:00:00 00:00:00 [place] [facility] History SDOH 2022-06-07 2022-06-07 1 University o f Alcohol Binge 00:00:00 00:00:00 [place] Medic al Branch History SDOH Social 2022-06-07 2022-06-07 5 Unive rsity of Connections Phone 00:00:00 00:00:00 [place] M edical Branch History SDOH Social 2022-06-07 2022-06-07 4 Unive rsity of Connections Living 00:00:00 00:00:00 [place] [facility] History SDOH 2022-06-07 2022-06-07 0 University o f Physical Activity 00:00:00 00:00:00 [facility] [place] edical DPW Branch History [facility] 2022-06-07 2022-06-07 0 University o f Physical Activity 00:00:00 00:00:00 [place] M edical MPS Branch History [facility] 2022-06-07 2022-06-07 5 University o f Financial 00:00:00 00:00:00 [place] [facility] History [facility] Food 2022-06-07 2022-06-07 1 Univers ity of Worry 00:00:00 00:00:00 [place] [facility] History SDME Food 2022-06-07 2022-06-07 1 Univers ity of Scarcity 00:00:00 00:00:00 [place] [facility] History [facility] 2022-06-07 2022-06-07 2 University o f Transport Med 00:00:00 00:00:00 [place] Medic al Branch History [facility] 2022-06-07 2022-06-07 2 University o f Transport Non-Med 00:00:00 00:00:00 [facility] [place] edical Branch Education 2022-06-06 2022-06-06 14 University of 00:00:00 00:00:00 [place] [facility] History of Social 2022-05-19 2022-05-[address] [facility] function 00:00:00 00:00:00 [facility] Center Tobacco use and 2022-05-19 2022-05-[address] [facility] [place] exposure 00:00:00 00:00:00 tobacco non-user Medical Center Alcohol intake 2022-05-19 2022-05-19 Ex-drinker [facility] 00:00:00 00:00:00 (finding) Medical Center History [facility] 2022-05-18 2022-05-[address] [facility] Housing Unable to 00:00:00 00:00:00 Medical Center Pay History [facility] 2022-05-18 2022-05-[address] [facility] Housing Places 00:00:00 00:00:00 Medical Ce nter Lived History [facility] 2022-05-18 2022-05-[address] [facility] Housing Homeless 00:00:00 00:00:00 Medical Center Last Year Sex Assigned At [address] [facility] 00:00:00 00:00:00 Medical Center Smoking Status Start Date Stop Date Source Never smoked tobacco [facility] Medications Ordered Filled Start Stop Current Ordering Indication Dosage Frequency Signature Comments Components Source Medication Medication Date Date Medication? Clinician (SIG) Name Name warfarin 1 2022-04 Yes [id number] 2mg Un chong mg tablet 0-27 3x/week ity of 00:00: 1mg 4x/week Medical Branch warfarin 1 2022-04 Yes [id number] 2mg Un chong mg tablet 0-27 3x/week ity of 00:00: 1mg 4x/week Medical Branch warfarin 1 2022-04 Yes [id number] 2mg Un chong mg tablet 0-27 3x/week ity of 00:00: 1mg [place] 4x/week Medical Branch warfarin 1 2022-04 Yes [id number] 2mg Un chong mg tablet 0-27 3x/week ity of 00:00: 1mg [place] 4x/week Medical Branch amiodarone 2022-04- Yes [id number] 200mg Take 1 Univers 200 mg 0-23 11-23 tablet by ity of tablet 00:00: 05:59 mouth in [place] 00 :00 the Medical morning [place] for 30 days. amiodarone 2022-04- Yes [id number] 200mg Take 1 Univers 200 mg 0-23 11-23 tablet by ity of tablet 00:00: 05:59 mouth in [place] 00 :00 the Medical morning Branch for 30 days. amiodarone 2022-04- Yes [id number] 200mg Take 1 Univers 200 mg 0-23 11-23 tablet by ity of tablet 00:00: 05:59 mouth in [place] 00 :00 [facility] morning [place] for 30 days. amiodarone 2022-04- Yes [id number] 200mg Take 1 Univers 200 mg 0-23 11-23 tablet by ity of tablet 00:00: 05:59 mouth in [place] 00 :00 the [facility] morning [place] for 30 days. amiodarone 2022-04- Yes [id number] 200mg Take 1 Univers 200 mg 0-23 11-23 tablet by ity of tablet 00:00: 05:59 mouth in [place] 00 :00 the Medical morning [place] for 30 days. amiodarone 2022-04- Yes [id number] 200mg Take 1 Univers 200 mg 0-23 -23 tablet by ity of tablet 00:00: 05:59 mouth in [place] 00 :00 the Medical morning Branch for 30 days. amiodarone 2022-04- Yes [id number] 200mg Take 1 Univers 200 mg 0-23 -23 tablet by ity of tablet 00:00: 05:59 mouth in [place] 00 :00 the Medical morning Branch for 30 days. pantoprazol 2022-04 Yes 40mg 40 mg, Univ ers e 0-22 Oral, ity of (PROTONIX) 14:00: DAILY, [place] EC tablet 00 First dose Medi tyrone 40 mg on [place] Branch 02/03/23 at 0900, Until Discontinu ed, Routine ezetimibe 2022-04 Yes 10mg 10 mg, Univer s (ZETIA) 0-22 Oral, ity of tablet 10 14:00: DAILY, [place] mg 00 First dose Medical on [facility] 02/03/23 at 0900, Until Discontinu ed, Routine aspirin 2022-04 Yes 81mg 81 mg, Univers chewable 0-22 Oral, ity of tablet 81 14:00: DAILY, [place] mg 00 First dose Medical on [place] Branch 02/03/23 at 0900, Until Discontinu ed, Routine amiodarone 2022-04 Yes 200mg 200 mg, Uni vers (PACERONE) 0-22 Oral, ity of tablet 200 14:00: DAILY, [place] mg 00 First dose Medical on [facility] 02/03/23 at 0900, Until Discontinu ed, Routine ondansetron 2022-04 Yes 4mg 4 mg, Slow Univers (ZOFRAN 0-22 IV Push, ity of (PF)) 04:29: Q6HPRN, [place] injection 4 42 Nausea and Me dical mg Vomiting Branch (N/V), Starting on [facility] 02/02/23 at 2329
Do ses of ondansetro n 16 mg and above need to be administer ed via IV piggyback. For Dose >=24mg ECG monitoring is advisable.
atorvastati 2022-04 Yes 80mg 80 mg, Univ ers n (LIPITOR) 0-22 Oral, QHS, it y of tablet 80 02:00: First dose [place] mg 00 on [facility] Medical 02/02/23 Branch at 2100, Until Discontinu ed, Routine metoprolol 2022-04 Yes 37.5mg 37.5 mg, U nivers tartrate 0-22 Oral, BID, ity o f (LOPRESSOR) 01:00: First dose [place] tablet 37.5 00 on [facility] Medica l mg 02/02/23 Branch at 2000, Until Discontinu ed gabapentin 2022-04 Yes 300mg 300 mg, Uni vers (NEURONTIN) 0-22 Oral, TID, it y of capsule 300 01:00: First dose [place] mg 00 on [facility] Medical 02/02/23 Branch at 2000, Until Discontinu ed, Routine ketorolac 2022-04- No 15mg 15 mg, Unive rs (TORADOL) 0- 10- Slow IV ity of injection 22:15: 21:36 Push, [place] 15 mg 00 :00 ONCE, 1 Medical dose, On Branch [facility] 02/02/23 at 1715, Routine zolpidem 2022-04 Yes 10mg 10 mg, Univers (AMBIEN) 0-21 Oral, ity of tablet 10 21:25: QHSPRN, [place] mg 46 Starting Medical on [facility] Branch 02/02/23 at 1625, Until Discontinu ed, Routine, Insomnia nitroglycer 2022-04 Yes .4mg 0.4 mg, Uni vers in 0-21 Sublingual ity of (NITROSTAT) 20:56: , Q5MIN [place] as sublingual 06 PRN, Medical tablet 0.4 Starting Branc h mg on [facility] 02/02/23 at 1556, Until Discontinu ed, Routine, Chest pain phytonadion 2022-04- No 2.5mg 2.5 mg, U nivers e (vitamin 0-21 - Oral, ity of K1) 20:30: 21:33 ONCE, 1 [place] (MEPHYTON) 00 :00 dose, On Medic al tablet 2.5 [facility] Branch mg 02/02/23 at 1530, Routine HYDROcodone 2022-04 Yes 1{tbl} 1 tablet, Univers -acetaminop 0-21 Oral, ity of hen (NORCO) 19:36: Q8HPRN, Babak as 10-325 mg 11 Starting Medica l tablet 1 on [facility] Branch tablet 02/02/23 at 1436, Until Discontinu ed, Routine, Pain (scale 7-10) acetaminoph 2022-04 Yes 650mg 650 mg, Un chong en 0-21 Oral, ity of (TYLENOL) 19:32: Q6HPRN, [place] tablet 650 20 Starting Medic al mg on Sat Branch 02/02/23 at 1432, Until Discontinu ed, Routine, Pain (scale 1-3) amiodarone 2022-04 Yes [id number] Please Univers 200 mg 0-02 take 200 ity of tablet 00:00: mg twice [place] 00 daily for Medical 2 weeks Branch (01/14/23 - 01/28/23) then take 200 mg once daily afterwards . amiodarone 2022-04 Yes [id number] Please Univers 200 mg 0-02 take 200 ity of tablet 00:00: mg twice [place] 00 daily for Medical 2 weeks Branch (01/14/23 - 01/28/23) then take 200 mg once daily afterwards . amiodarone 2022-04 Yes [id number] Please Univers 200 mg 0-02 take 200 ity of tablet 00:00: mg twice [place] 00 daily for Medical 2 weeks Branch (01/14/23 - 01/28/23) then take 200 mg once daily afterwards . amiodarone 2022-04 Yes [id number] Please Univers 200 mg 0-02 take 200 ity of tablet 00:00: mg twice [place] 00 daily for Medical 2 weeks Branch (01/14/23 - 01/28/23) then take 200 mg once daily afterwards . amiodarone 2022-04 Yes [id number] Please Univers 200 mg 0-02 take 200 ity of tablet 00:00: mg twice [place] 00 daily for Medical 2 weeks Branch (01/14/23 - 01/28/23) then take 200 mg once daily afterwards . amiodarone 2022-04 Yes [id number] Please Univers 200 mg 0-02 take 200 ity of tablet 00:00: mg twice [place] 00 daily for Medical 2 weeks Branch (01/14/23 - 01/28/23) then take 200 mg once daily afterwards . amiodarone 2022-04 Yes [id number] Please Univers 200 mg 0-02 take 200 ity of tablet 00:00: mg twice [place] 00 daily for Medical 2 weeks Branch (01/14/23 - 01/28/23) then take 200 mg once daily afterwards . amiodarone 2022-04 Yes [id number] Please Univers 200 mg 0-02 take 200 ity of tablet 00:00: mg twice [place] 00 daily for Medical 2 weeks Branch (01/14/23 - 01/28/23) then take 200 mg once daily afterwards . amiodarone 2022-04 Yes [id number] Please Univers 200 mg 0-02 take 200 ity of tablet 00:00: mg twice [place] 00 daily for Medical 2 weeks Branch (01/14/23 - 01/28/23) then take 200 mg once daily afterwards . amiodarone 2022-04 Yes [id number] Please Univers 200 mg 0-02 take 200 ity of tablet 00:00: mg twice [place] 00 daily for Medical 2 weeks Branch (01/14/23 - 01/28/23) then take 200 mg once daily afterwards . amiodarone 2022-04- No [id number] Please Univers 200 mg 0-02 02-03 take [...] be selected): Atrial fibrillati on/flutter aspirin 81 2022-0 Yes 81mg Take 1 Unive rs mg chewable 9-30 tablet by ity of tablet 00:00: mouth in [place] 00 the Medical morning. Branch pantoprazol 2022-0 Yes 40mg Take 1 Univ ers e 40 mg EC 9-30 tablet by ity of tablet 00:00: mouth in [place] 00 the Medical morning. Branch aspirin 81 2023-0 Yes 81mg Take 1 Unive rs mg chewable 9-30 tablet by ity of tablet 00:00: mouth in [place] 00 the Medical morning. Branch pantoprazol 2023-0 Yes 40mg Take 1 Univ ers e 40 mg EC 9-30 tablet by ity of tablet 00:00: mouth in [place] 00 the Medical morning. Branch aspirin 81 2023-0 Yes 81mg Take 1 Unive rs mg chewable 9-30 tablet by ity of tablet 00:00: mouth in [place] 00 the Medical morning. Branch pantoprazol 2023-0 Yes 40mg Take 1 Univ ers e 40 mg EC 9-30 tablet by ity of tablet 00:00: mouth in [place] 00 the Medical morning. Branch aspirin 81 2023-0 Yes 81mg Take 1 Unive rs mg chewable 9-30 tablet by ity of tablet 00:00: mouth in [place] 00 the Medical morning. Branch pantoprazol 2023-0 Yes 40mg Take 1 Univ ers e 40 mg EC 9-30 tablet by ity of tablet 00:00: mouth in [place] 00 the Medical morning. Branch aspirin 81 2023-0 Yes 81mg Take 1 Unive rs mg chewable 9-30 tablet by ity of tablet 00:00: mouth in [place] 00 the Medical morning. Branch pantoprazol 2023-0 Yes 40mg Take 1 Univ ers e 40 mg EC 9-30 tablet by ity of tablet 00:00: mouth in [place] 00 the Medical morning. Branch aspirin 81 2023-0 Yes 81mg Take 1 Unive rs mg chewable 9-30 tablet by ity of tablet 00:00: mouth in [place] 00 the Medical morning. Branch pantoprazol 2023-0 Yes 40mg Take 1 Univ ers e 40 mg EC 9-30 tablet by ity of tablet 00:00: mouth in [place] 00 the Medical morning. Branch aspirin 81 2023-0 Yes 81mg Take 1 Unive rs mg chewable 9-30 tablet by ity of tablet 00:00: mouth in [place] 00 the Medical morning. Branch pantoprazol 2023-0 Yes 40mg Take 1 Univ ers e 40 mg EC 9-30 tablet by ity of tablet 00:00: mouth in [place] 00 the Medical morning. Branch aspirin 81 2023-0 Yes 81mg Take 1 Unive rs mg chewable 9-30 tablet by ity of tablet 00:00: mouth in [place] 00 the Medical morning. Branch pantoprazol 2023-0 Yes 40mg Take 1 Univ ers e 40 mg EC 9-30 tablet by ity of tablet 00:00: mouth in [place] the Medical morning. Branch aspirin 81 2023-0 Yes 81mg Take 1 Unive rs mg chewable 9-30 tablet by ity of tablet 00:00: mouth in [place] the Medical morning. Branch pantoprazol 2023-0 Yes 40mg Take 1 Univ ers e 40 mg EC 9-30 tablet by ity of tablet 00:00: mouth in [place] the Medical morning. Branch aspirin 81 2023-0 Yes 81mg Take 1 Unive rs mg chewable 9-30 tablet by ity of tablet 00:00: mouth in [place] the Medical morning. Branch pantoprazol 2023-0 Yes 40mg Take 1 Univ ers e 40 mg EC 9-30 tablet by ity of tablet 00:00: mouth in [place] the Medical morning. Branch aspirin 81 2023-0 Yes 81mg Take 1 Unive rs mg chewable 9-30 tablet by ity of tablet 00:00: mouth in [place] the Medical morning. Branch pantoprazol 2023-0 Yes 40mg Take 1 Univ ers e 40 mg EC 9-30 tablet by ity of tablet 00:00: mouth in [place] the Medical morning. Branch aspirin 81 2023-0 Yes 81mg Take 1 Unive rs mg chewable 9-30 tablet by ity of tablet 00:00: mouth in [place] the Medical morning. Branch pantoprazol 2023-0 Yes 40mg Take 1 Univ ers e 40 mg EC 9-30 tablet by ity of tablet 00:00: mouth in [place] 00 the Medical morning. Branch aspirin 81 2023-0 Yes 81mg Take 1 Unive rs mg chewable 9-30 tablet by ity of tablet 00:00: mouth in [place] 00 the Medical morning. Branch pantoprazol 2023-0 Yes 40mg Take 1 Univ ers e 40 mg EC 9-30 tablet by ity of tablet 00:00: mouth in [place] 00 the Medical morning. Branch aspirin 81 2023-0 Yes 81mg Take 1 Unive rs mg chewable 9-30 tablet by ity of tablet 00:00: mouth in [place] 00 the Medical morning. Branch pantoprazol 2022-0 Yes 40mg Take 1 Univ ers e 40 mg EC 9-30 tablet by ity of tablet 00:00: mouth in [place] 00 the Medical morning. Branch aspirin 81 2022-0 Yes 81mg Take 1 Unive rs mg chewable 9-30 tablet by ity of tablet 00:00: mouth in [place] 00 the Medical morning. Branch pantoprazol 2022-0 Yes 40mg Take 1 Univ ers e 40 mg EC 9-30 tablet by ity of tablet 00:00: mouth in [place] 00 the Medical morning. Branch aspirin 81 2022-0 Yes 81mg Take 1 Unive rs mg chewable 9-30 tablet by ity of tablet 00:00: mouth in [place] 00 the Medical morning. Branch pantoprazol 2022-0 Yes 40mg Take 1 Univ ers e 40 mg EC 9-30 tablet by ity of tablet 00:00: mouth in [place] 00 the Medical morning. Branch aspirin 81 2022-0 Yes 81mg Take 1 Unive rs mg chewable 9-30 tablet by ity of tablet 00:00: mouth in [place] the Medical morning. Branch pantoprazol 2022-0 Yes 40mg Take 1 Univ ers e 40 mg EC 9-30 tablet by ity of tablet 00:00: mouth in [place] 00 the Medical morning. Branch warfarin Yes 1mg 1 mg, Univers (COUMADIN) 01-11 Oral, ity of tablet 1 mg 22:00: QFRIDAY AT [place] 00 1700, Medical First dose Branch on Sat01/11/23 at 1700, Until Discontinu ed, Routine
INR Goal Range: 2-3
IND ICATION (More than one indication for warfarin can be selected): Atrial fibrillati on/flutter HYDROcodone 2022- No 1 tablet U nivers -acetaminop 01-11 as needed it y of hen 7.5-325 15:34: 00:00 [place] mg per 47 :00 Medical tablet Branch aspirin 81 0 2022- No Aspirin Uni vers mg chewable 01-11 Oral ity of tablet 15:34: 00:00 active [place] 47 :00 Medical Branch ondansetron 0 2022- No 4mg 4 mg, Univ ers [...] infusion 2 ONCE, 1 g dose, On Sat01/11/23 at 0630, Routine gabapentin 2022-0 Yes 300mg Take 1 Univ ers 300 mg - capsule by ity of capsule 00:00: mouth in [place] [id number] the morning Branch and 1 capsule at noon and 1 capsule in the evening. metoprolol 2022-0 Yes [id number] 37.5mg Take 37.5 Univers tartrate 9-29 mg by ity of 37.5 mg Tab 00:00: [place] 00 the Medical morning Branch and 37.5 mg in the evening. ezetimibe 3-0 Yes [id number] 10mg Take 1 U nivers (ZETIA) 10 9-29 tablet by ity of mg tablet 00:00: mouth in [facility] [place] [facility] 00 the Medical morning. Branch alendronate 2022-0 Yes 70mg Take 1 Univ ers 70 mg 9-29 tablet by ity of tablet 00:00: mouth [place] 00 weekly. Medical Branch gabapentin 3-0 Yes 300mg Take 1 Univ ers 300 mg 9-29 capsule by ity of capsule 00:00: mouth in [place] 00 the morning Branch and 1 capsule at noon and 1 capsule in the evening. metoprolol 3-0 Yes [id number] 37.5mg Take 37.5 Univers tartrate 9-29 mg by ity of 37.5 mg Tab 00:00: mouth in [place] 00 the Medical morning Branch and 37.5 mg in the evening. ezetimibe 3-0 Yes [id number] 10mg Take 1 U nivers (ZETIA) 10 9-29 tablet by ity of mg tablet 00:00: [place] the Medical morning. Branch alendronate 2022-0 Yes 70mg Take 1 Univ ers 70 mg 9-29 tablet by ity of tablet 00:00: mouth [place] 00 weekly. Medical Branch gabapentin 3-0 Yes 300mg Take 1 Univ ers 300 mg 9-29 capsule by ity of capsule 00:00: mouth in [place] 00 the Medical morning Branch and 1 capsule at noon and 1 capsule in the evening. metoprolol 2023-0 Yes [id number] 37.5mg Take 37.5 Univers tartrate 9-29 mg by ity of 37.5 mg Tab 00:00: mouth in [place] 00 the Medical morning Branch and 37.5 mg in the evening. ezetimibe 2023-0 Yes [id number] 10mg Take 1 U nivers (ZETIA) 10 9-29 tablet by ity of mg tablet 00:00: [place] the Medical morning. Branch alendronate 2022-0 Yes 70mg Take 1 Univ ers 70 mg 9-29 tablet by ity of tablet 00:00: mouth [place] weekly. Medical Branch gabapentin 3-0 Yes 300mg Take 1 Univ ers 300 mg 9-29 capsule by ity of capsule 00:00: mouth in [place] 00 the Medical morning Branch and 1 capsule at noon and 1 capsule in the evening. metoprolol 3-0 Yes [id number] 37.5mg Take 37.5 Univers tartrate 9-29 mg by ity of 37.5 mg Tab 00:00: mouth in [place] 00 the Medical morning Branch and 37.5 mg in the evening. ezetimibe 3-0 Yes [id number] 10mg Take 1 [facility] (ZETIA) 10 9-29 tablet by ity of mg tablet 00:00: mouth [place] 00 the Medical morning. Branch alendronate 3-0 Yes 70mg Take 1 [facility] 70 mg 9-29 tablet by ity of tablet 00:00: mouth [place] 00 weekly. Medical Branch gabapentin 3-0 Yes 300mg Take 1 [facility] ers 300 mg 9-29 capsule by ity of capsule 00:00: mouth in [place] 00 the Medical morning Branch and 1 capsule at noon and 1 capsule in the evening. metoprolol 2023-0 Yes [id number] 37.5mg Take 37.5 [facility] tartrate 9-29 mg by ity of 37.5 mg Tab 00:00: mouth in [place] 00 the Medical morning Branch and 37.5 mg in the evening. ezetimibe 2023-0 Yes [id number] 10mg Take 1 [facility] (ZETIA) 10 [...] capsule in the evening. metoprolol 2023-0 Yes [id number] 37.5mg Take 37.5 [facility] tartrate 9-29 mg by ity of 37.5 mg Tab 00:00: mouth in [place] 00 the Medical morning Branch and 37.5 mg in the evening. ezetimibe 2023-0 Yes [id number] 10mg Take 1 [facility] (ZETIA) 10 [...] capsule in the evening. metoprolol 2023-0 Yes [id number] 37.5mg Take 37.5 [facility] tartrate 9-29 mg by ity of 37.5 mg Tab 00:00: mouth in [place] 00 the Medical morning Branch and 37.5 mg in the evening. ezetimibe 2023-0 Yes [id number] 10mg Take 1 [facility] (ZETIA) 10 [...] capsule in the evening. metoprolol 2023-0 Yes [id number] 37.5mg Take 37.5 [facility] tartrate 9-29 mg by ity of 37.5 mg Tab 00:00: mouth in [place] 00 the Medical morning Branch and 37.5 mg in the evening. ezetimibe 2023-0 Yes [id number] 10mg Take 1 [facility] (ZETIA) 10 9-29 tablet by it[facility] of mg tablet 00:00: [place] 00 the Medical morning. Branch alendronate 2023-0 Yes 70mg Take 1 [facility] 70 mg 9-29 tablet by ity of tablet 00:00: mouth [place] 00 weekly. Medical Branch gabapentin 3-0 Yes 300mg Take 1 [facility] 300 mg 9-29 capsule by ity of capsule 00:00: mouth in [place] the Medical morning Branch and 1 capsule at noon and 1 capsule in the evening. metoprolol 2023-0 Yes [id number] 37.5mg Take 37.5 [facility] tartrate 9-29 mg by ity of 37.5 mg Tab 00:00: mouth in [place] 00 the Medical morning Branch and 37.5 mg in the evening. ezetimibe 2023-0 Yes [id number] 10mg Take 1 [facility] (ZETIA) 10 [...] by ity of capsule 00:00: mouth in [place] 00 the Medical morning Branch and 1 capsule at noon and 1 capsule in the evening. metoprolol 2023-0 Yes [id number] 37.5mg Take 37.5 [facility] tartrate 9-29 mg by ity of 37.5 mg Tab 00:00: mouth in [place] 00 the Medical morning Branch and 37.5 mg in the evening. ezetimibe 2023-0 Yes [id number] 10mg Take 1 [facility] (ZETIA) 10 [...] capsule in the evening. metoprolol 2023-0 Yes [id number] 37.5mg Take 37.5 [facility] tartrate 9-29 mg by ity of 37.5 mg Tab 00:00: mouth in [place] the Medical morning Branch and 37.5 mg in the evening. ezetimibe 2023-0 Yes [id number] 10mg Take 1 [facility] (ZETIA) 10 9-29 tablet by ity of mg tablet 00:00: mouth [place] the Medical morning. Branch alendronate 3-0 Yes 70mg Take 1 [facility] ers 70 mg 9-29 tablet by ity of tablet 00:00: mouth [place] weekly. Medical Branch gabapentin 3-0 Yes 300mg Take 1 [facility] ers 300 mg 9-29 capsule by ity of capsule 00:00: mouth in [place] the Medical morning Branch and 1 capsule at noon and 1 capsule in the evening. metoprolol 2023-0 Yes [id number] 37.5mg Take 37.5 [facility] tartrate 9-29 mg by ity of 37.5 mg Tab 00:00: mouth in [place] the Medical morning Branch and 37.5 mg in the evening. ezetimibe 2023-0 Yes [id number] 10mg Take 1 [facility] (ZETIA) 10 [...] ity of capsule 00:00: mouth in [place] the Medical morning Branch and 1 capsule at noon and 1 capsule in the evening. metoprolol 2023-0 Yes [id number] 37.5mg Take 37.5 [facility] tartrate 9-29 mg by ity of 37.5 mg Tab 00:00: mouth in [place] 00 the Medical morning Branch and 37.5 mg in the evening. ezetimibe 2023-0 Yes [id number] 10mg Take 1 [facility] (ZETIA) 10 [...] capsule in the evening. metoprolol 3-0 Yes [id number] 37.5mg Take 37.5 [facility] tartrate 9-29 mg by ity of 37.5 mg Tab 00:00: mouth in [place] the Medical morning Branch and 37.5 mg in the evening. ezetimibe 2023-0 Yes [id number] 10mg Take 1 [facility] (ZETIA) 10 [...] capsule in the evening. metoprolol 2023-0 Yes [id number] 37.5mg Take 37.5 [facility] tartrate 9-29 mg by ity of 37.5 mg Tab 00:00: mouth in [place] 00 the Medical morning Branch and 37.5 mg in the evening. ezetimibe 2023-0 Yes [id number] 10mg Take 1 [facility] (ZETIA) 10 9-29 tablet by ity of mg tablet 00:00: [place] 00 the Medical morning. Branch alendronate 2022-0 Yes 70mg Take 1 [facility] 70 mg 9-29 tablet by ity of tablet 00:00: mouth [place] weekly. Medical Branch gabapentin 3-0 Yes 300mg Take 1 [facility] 300 mg 9-29 capsule by ity of capsule 00:00: mouth in [place] 00 the Medical morning Branch and 1 capsule at noon and 1 capsule in the evening. metoprolol 3-0 Yes [id number] 37.5mg Take 37.5 [facility] tartrate 9-29 mg by ity of 37.5 mg Tab 00:00: mouth in [place] 00 the Medical morning Branch and 37.5 mg in the evening. ezetimibe 2022-0 Yes [id number] 10mg Take 1 [facility] (ZETIA) 10 9-29 tablet by ity of mg tablet 00:00: [place] 00 the Medical morning. Branch alendronate 2022-0 Yes 70mg Take 1 [facility] 70 mg 9-29 tablet by ity of tablet 00:00: mouth [place] weekly. Medical Branch gabapentin 2022-0 Yes 300mg Take 1 [facility] 300 mg 9-29 capsule by ity of capsule 00:00: mouth in [place] 00 the Medical morning Branch and 1 capsule at noon and 1 capsule in the evening. metoprolol 2022-0 Yes [id number] 37.5mg Take 37.5 [facility] tartrate 9-29 mg by ity of 37.5 mg Tab 00:00: mouth in [place] 00 the Medical morning Branch and 37.5 mg in the evening. ezetimibe 3-0 Yes [id number] 10mg Take 1 [facility] (ZETIA) 10 9-29 tablet by ity of mg tablet 00:00: [place] the Medical morning. Branch alendronate 2022-0 Yes 70mg Take 1 [facility] 70 mg 9-29 tablet by ity of tablet 00:00: mouth [place] weekly. Medical Branch warfarin 2022-0 Yes 1mg 1 mg, [facility] (COUMADIN) 01-10 Oral, ity of tablet 1 mg 22:00: QTHURS T ex 00 AT 1700, Medical First dose Branch on [place] 01/10/23 at 1700, Until Discontinu ed, Routine
INR Goal Range: 2-3
IND ICATION (More than one indication for warfarin can be selected): Atrial fibrillati on/flutter aspirin Yes 81mg 81 mg, [facility] chewable 01-10 Oral, ity of tablet 81 15:00: DAILY, [place] mg 00 First dose Medical on [place] Branch 01/10/23 at 1000, Until Discontinu ed, Routine furosemide 2022- No 20mg 20 mg, Univ ers (LASIX) 01-10 Slow IV ity of injection 14:30: 14:01 Push, [place] 20 mg 00 :00 ONCE, 1 Medical dose, On Branch [place] 01/10/23 at 0930, Routine Lidocaine Yes 1{patch 1 Patch, U nivers (LIDOCARE) [...] First dose Me dical 8.6-50 mg on [facility] Branch per tablet 01/10/23 at 1 tablet 0900, Until Discontinu ed, Routine warfarin Yes 2mg 2 mg, Univers (COUMADIN) 01-09 Oral, ity of tablet 2 mg 22:00: QWEDNES 00 AT 1700, Medical First dose Branch on Sat01/09/23 at 1700, Until Discontinu ed, Routine
INR Goal Range: 2-3
IND ICATION (More than one indication for warfarin can be selected): Atrial fibrillati on/flutter zolpidem Yes 10mg 10 mg, Univers (AMBIEN) 01-09 Oral, ity of tablet 10 21:20: QHSPRN, [place] mg 33 Starting Medical on Sat Branch 01/09/23 at 1620, Until Discontinu ed, Routine, Insomnia acetaminoph Yes 650mg 650 mg, [facility] en 01-09 Oral, ity of (TYLENOL) 20:33: Q6HPRN, [place] tablet 650 11 Starting Medic al mg on Sat01/09/23 at 1533, Until Discontinu ed, Routine, Pain (scale 1-3) METOPROLOL 0 2022- No Metoprolol Univers TARTRATE 01-0924 Oral ity of ORAL 15:15: 00:00 (Tartrate) [place] 06 :00 active Medical Branch lidocaine 0 2022- No 1{patch 1 Patch, Univers (LIDODERM) 01-09 } Topical, ity of 5 % (700 14:00: 13:57 Administer [place] mg/patch) 00 :26 over 12 Medical patch 1 Hours, [place] Patch DAILY, First dose on Sat01/09/23 at 0900, Until Discontinu ed, Routine aspirin 81 0 Yes Aspirin Univ ers mg chewable 01-09 Oral ity of tablet 13:57: active [address] zolpidem 0 Yes 5mg 5 mg, Univers (AMBIEN) 01-09 Oral, QHS, ity o f tablet 5 mg 02:00: First dose [place] 00 on Sat01/08/23 at Branch 2100, Until Discontinu ed, Routine metoprolol 0 Yes 37.5mg 37.5 mg, U nivers tartrate 01-09 Oral, BID, ity o f (LOPRESSOR) 01:00: First dose [place] tablet 37.5 00 (after Medica l mg last Branch modificati on) on Sat01/08/23 at 1999, Until Discontinu ed, Routine gabapentin 0 Yes 300mg 300 mg, Uni vers (NEURONTIN) 01-09 Oral, TID, it y of capsule 300 01:00: First dose [place] mg 00 (after Medical last Branch modificati on) on Sat01/08/23 at 2000, Until Discontinu ed, Routine warfarin 0 Yes 2mg 2 mg, Univers (COUMADIN) 01-08 Oral, ity of tablet 2 mg 22:00: QTUESDAY [place] 00 AT 1700, Medical First dose Branch on Sat01/08/23 at 1700, Until Discontinu ed, Routine
INR Goal Range: 2-3
IND ICATION (More than one indication for warfarin can be selected): Atrial fibrillati on/flutter FENTanyl 2022-0 2022- No 1{patch 1 Patch, U nivers (DURAGESIC) [...] Medica l tablet 1 on Sat tablet 01/08/23 at 1315, Until Discontinu ed, Routine, Pain (scale 4-6) morpHINE (2 Yes 2mg 2 mg, Slow Univers mg/mL) 01-08 IV Push, ity of injection 2 17:52: Q3HPRN, [place] mg 40 Starting Medical on Sat01/08/23 at 1252, Until Discontinu ed, Routine, Pain (scale 7-10) metoclopram Yes 5mg 5 mg, Unive rs [place] HCl 01-08 Oral, ity of (REGLAN) 17:27: Q6HPRN, [place] tablet 5 mg 05 Starting Medi tyrone on Sat01/08/23 at 1227, Until Discontinu ed, Routine, Nausea [...] First dose [place] mg 00 on [facility] Medical 01/07/23 at Branch 2100, Until Discontinu ed, Routine metoprolol 0 2022- No 25mg 25 mg, Univ ers tartrate 01-08 Oral, BID, ity of (LOPRESSOR) 01:00: 00:28 First dose [place] tablet 25 00 :53 on [facility] Medical mg 01/07/23 at Branch 2000, Until Discontinu ed, Routine warfarin Yes 2mg 2 mg, Univers (COUMADIN) 01-07 Oral, ity of tablet 2 mg 22:00: QMONDAY AT [place] 00 1700, Medical First dose Branch on [facility] 01/07/23 at 1700, Until Discontinu ed, Routine
INR Goal Range: 2-3
IND ICATION (More than one indication for warfarin can be selected): Atrial fibrillati on/flutter pantoprazol Yes 40mg 40 mg, Univ ers e 01-07 Oral, ity of (PROTONIX) 14:00: DAILY, [place] EC tablet 00 First dose Medi tyrone 40 mg on [facility] Branch 01/07/23 at 0900, Until Discontinu ed, Routine ezetimibe Yes 10mg 10 mg, Univer s (ZETIA) 01-07 Oral, ity of tablet 10 14:00: DAILY, [place] mg 00 First dose Medical on [facility] 01/07/23 at 0900, Until Discontinu ed, Routine aspirin 2022- No 324mg 324 mg, Unive rs chewable 01-07 Oral, ity of tablet 324 14:00: 12:26 DAILY, [place] mg 00 :42 First dose Medical on [facility] 01/07/23 at 0900, Until Discontinu ed, Routine dofetilide No 125ug 125 mcg, U nivers (TIKOSYN) 01-07 Oral, ity of capsule 125 13:30: 00:59 Q12H, [place] mcg 00 :03 First dose Medical on [facility] 01/07/23 at 0830, Until Discontinu ed, Routine
member service specialist approving Restricted medication : ALICIA SMITH FENTanyl PF 2022- No 50ug 50 mcg, [facility] (SUBLIMAZE 01-07 Slow IV ity o f (PF)) 11:27: 15:53 Push, [place] injection 31 :26 Q4HPRN, Medical 50 mcg Starting Branch on Sat01/07/23 at 0627, Until Sat01/08/23 at 1053, Routine, Pain (scale 7-10) HYDROcodone 2022- No 1{tbl} 1 tablet, Univers -acetaminop 01-07 Oral, ity of hen (NORCO 11:27: 17:52 Q6HPRN, [place] 5) 5-325 mg 03 :59 Starting Medi tyrone tablet 1 on Mon Branch tablet 01/07/23 at 0627, Until Sat01/08/23 at 1252, Routine, Pain (scale 4-6) aspirin 81 2022-0 Yes Aspirin Univ ers mg chewable -25 Oral ity of tablet 08:31: active [address] aspirin 81 0 Yes Aspirin Univ ers mg chewable -25 Oral ity of tablet 08:31: active [address] aspirin 81 2022-0 Yes Aspirin Univ ers mg chewable -25 Oral ity of tablet 08:31: active [address] HYDROcodone 0 Yes 1 tablet [facility] [place] -acetaminop 9-25 as needed ity of hen 7.5-325 08:26: [place] mg per 59 Medical tablet Branch HYDROcodone 0 Yes 1 tablet [place] -acetaminop 9-25 as needed ity of hen 7.5-325 08:26: [place] mg per 59 Medical tablet Branch HYDROcodone 0 Yes 1 tablet [place] -acetaminop 9-25 as needed ity of hen 7.5-325 08:26: [place] mg per 59 Medical tablet Branch HYDROcodone 0 Yes 1 tablet [place] -acetaminop 9-25 as needed ity of hen 7.5-325 08:26: [place] mg per 59 Medical tablet Branch HYDROcodone 0 Yes 1 tablet [facility] [place] -acetaminop 9-25 as needed ity of hen 7.5-325 08:26: [place] mg per 59 Medical tablet Branch HYDROcodone 0 Yes 1 tablet [place] -acetaminop 9-25 as needed ity of hen 7.5-325 08:26: [place] mg per 59 Medical tablet Branch warfarin 2022-0 2022- No 2mg 2 mg, Univers (COUMADIN) 01-07 Oral, ONCE it y of tablet 2 mg 06:15: 05:29 NOW, 1 [place] 00 :00 dose, On Medical [facility] 01/07/23 at 0115, Routine
INR Goal Range: 2-3
IND ICATION (More than one indication for warfarin can be selected): Mechanical AVR zolpidem 2022- No 10mg 10 mg, Univer s (AMBIEN) 01-07 Oral, ity of tablet 10 05:20: 23:31 QHSPRN, [place] mg 11 :24 Starting Medical on [facility] 01/07/23 at 0020, Until Sat01/08/23 at 1831, Routine, Insomnia ketorolac 2022- No 15mg 15 mg, Unive rs (TORADOL) 01-07 Slow IV ity of injection 04:00: 03:27 Push, [place] 15 mg 00 :00 ONCE, 1 Medical dose, On [facility] 01/06/23 at 2300, Routine ondansetron 2022- No 4mg 4 mg, Slow Univers (ZOFRAN 01-07 IV Push, ity of (PF)) 02:36: 17:27 Q6HPRN, [place] injection 4 30 :33 Starting Medi tyrone mg on [facility] 01/06/23 at 2136, Until Sat01/08/23 at 1227, Routine, Nausea and Vomiting (N/V) acetaminoph 2022- No 650mg 650 mg, U nivers en 01-07 Oral, ity of (TYLENOL) 02:35: 11:27 Q6HPRN, [place] tablet 650 26 :44 Starting Medic al mg on [facility] 01/06/23 at 2135, Until [facility] 01/07/23 at 0627, Routine, Pain (scale 1-3) ondansetron 2022- No 4mg 4 mg, Slow Univers (ZOFRAN 01-07 IV Push, ity of (PF)) 01:15: 01:04 ONCE, 1 [place] injection 4 00 :00 dose, On Medi tyrone mg [facility] 01/06/23 at 2015, ОЛЕГ metoprolol 2022- No 25mg 25 mg, Univ ers tartrate 01-07 Oral, ity of (LOPRESSOR) 00:00: 23:30 ONCE, 1 [place] tablet 25 00 :00 dose, On Medica l mg [facility] 01/06/23 at 1900, Routine FENTanyl PF 2022- No 25ug 25 mcg, [facility] (SUBLIMAZE 01-06 Slow IV ity o f (PF)) 23:15: 23:19 Push, [place] injection 00 :00 ONCE, 1 Medical 25 mcg dose, On Branch [place] 01/06/23 at 1815, STAT metoprolol 2022- No 5mg 5 mg, Slow Univers (LOPRESSOR) 01-06 IV Push, ity of injection 5 23:15: 23:22 ONCE, 1 [place] mg 00 :00 dose, On [facility] 01/06/23 at 1815, ОЛЕГ pantoprazol 2022- No 40mg Take 1 Uni vers e 40 mg EC 12-21 tablet by ity of tablet 00:00: 00:00 mouth in [place] 00 :00 the Medical morning Branch and 1 tablet in the evening. warfarin 1 Yes [id number] 2mg [place] mg tablet 12-20 3x/week ity of 00:00: 1mg 4x/week Medical Branch warfarin 1 Yes [id number] 2mg [place] mg tablet 12-20 3x/week ity of 00:00: 1mg 4x/week Medical Branch warfarin 1 Yes [id number] 2mg [place] mg tablet 12-20 3x/week ity of 00:00: 1mg 4x/week Medical Branch dofetilide Yes [id number] 2 (two) Univers 125 mcg - times a ity of capsule 00:00: day [place] Medical Branch warfarin 1 Yes [id number] 2mg [place] mg tablet 12-20 3x/week ity of 00:00: 1mg 4x/week Medical Branch dofetilide Yes [id number] 2 (two) [facility] 125 mcg 9-07 times a ity of capsule 00:00: day [place] Medical Branch warfarin 1 Yes [id number] 2mg [facility] [place] mg tablet 12-20 3x/week ity of 00:00: 1mg 4x/week Medical Branch dofetilide Yes [id number] 2 (two) [facility] 125 mcg 9-07 times a ity of capsule 00:00: day Medical Branch warfarin 1 Yes [id number] 2mg [place] mg tablet 12-20 3x/week ity of 00:00: 1mg 4x/week Medical Branch dofetilide Yes [id number] 2 (two) [facility] 125 mcg 9-07 times a ity of capsule 00:00: day Medical Branch warfarin 1 Yes [id number] 2mg [place] mg tablet 12-20 3x/week ity of 00:00: 1mg 4x/week Medical Branch dofetilide Yes [id number] 2 (two) [facility] 125 mcg -07 times a ity of capsule 00:00: day Medical Branch warfarin 1 Yes [id number] 2mg [place] mg tablet 12-20 3x/week ity of 00:00: 1mg 4x/week Medical Branch dofetilide Yes [id number] 2 (two) [facility] 125 mcg 9-07 times a ity of capsule 00:00: day Medical Branch amoxicillin Yes 1{tbl} Take 1 [facility] -clavulanat 12-20 tablet by ity of e 875-125 00:00: mouth [place] mg per 00 every Medical tablet morning Branch and evening. warfarin 1 Yes [id number] 2mg [place] mg tablet 12-20 3x/week ity of 00:00: 1mg 4x/week Medical Branch dofetilide Yes [id number] 2 (two) [facility] 125 mcg 9-07 times a ity of capsule 00:00: day Medical Branch amoxicillin Yes 1{tbl} Take 1 [place] -clavulanat 12-20 tablet by ity of e 875-125 00:00: mouth [place] mg per 00 every Medical tablet morning Branch and evening. warfarin 1 Yes [id number] 2mg [place] mg tablet 12-20 3x/week ity of 00:00: 1mg 4x/week Medical Branch dofetilide Yes [id number] 2 (two) Univers 125 mcg 9-07 times a ity of capsule 00:00: day Medical Branch amoxicillin Yes 1{tbl} Take 1 [place] -clavulanat 12-20 tablet by ity of e 875-125 00:00: mouth [place] mg per 00 every Medical tablet morning Branch and evening. warfarin 1 Yes [id number] 2mg [place] mg tablet 12-20 3x/week ity of 00:00: 1mg 4x/week Medical Branch dofetilide Yes [id number] 2 (two) Univers 125 mcg - times a ity of capsule 00:00: day Medical Branch amoxicillin Yes 1{tbl} Take 1 [place] -clavulanat 12-20 tablet by ity of e 875-125 00:00: mouth [place] mg per 00 every Medical tablet morning Branch and evening. warfarin 1 Yes [id number] 2mg [place] mg tablet 12-20 3x/week ity of 00:00: 1mg 4x/week Medical Branch dofetilide Yes [id number] 2 (two) Univers 125 mcg -07 times a ity of capsule 00:00: day Medical Branch warfarin 1 Yes [id number] 2mg [place] mg tablet 12-20 3x/week ity of 00:00: 1mg 4x/week Medical Branch dofetilide Yes [id number] 2 (two) [facility] 125 mcg 9-07 times a ity of capsule 00:00: day Medical Branch warfarin 1 Yes [id number] 2mg [place] mg tablet 12-20 3x/week ity of 00:00: 1mg 4x/week Medical Branch warfarin 1 Yes [id number] 2mg [place] mg tablet 12-20 3x/week ity of 00:00: 1mg 4x/week Medical Branch warfarin 1 Yes [id number] 2mg [place] mg tablet 12-20 3x/week ity of 00:00: 1mg 4x/week Medical Branch warfarin 1 2022-0 Yes [id number] 2mg [place] mg tablet 12-20 3x/week ity of 00:00: 1mg 4x/week Medical Branch warfarin 1 2022-0 Yes [id number] 2mg [place] mg tablet 12-20 3x/week ity of 00:00: 1mg 4x/week Medical Branch warfarin 1 2022-0 Yes [id number] 2mg [place] mg tablet 12-20 3x/week ity of 00:00: 1mg 4x/week Medical Branch warfarin 1 2022-0 Yes [id number] 2mg [place] mg tablet 12-20 3x/week ity of 00:00: 1mg 4x/week Medical Branch warfarin 1 0 Yes [id number] 2mg [place] mg tablet 12-20 3x/week ity of 00:00: 1mg 4x/week Medical Branch warfarin 1 0 Yes [id number] 2mg [place] mg tablet 12-20 3x/week ity of 00:00: 1mg 4x/week Medical Branch warfarin 1 0 Yes [id number] 2mg [place] mg tablet 12-20 3x/week ity of 00:00: 1mg 4x/week Medical Branch warfarin 1 0 Yes [id number] 2mg [place] mg tablet 12-20 3x/week ity of 00:00: 1mg 4x/week Medical Branch warfarin 1 0 Yes [id number] 2mg [place] mg tablet 12-20 3x/week ity of 00:00: 1mg 4x/week Medical Branch warfarin 1 2022-0 Yes [id number] 2mg [place] mg tablet 12-20 3x/week ity of 00:00: 1mg 4x/week Medical Branch warfarin 1 2022-0 2022- No [id number] 2mg U nivers mg tablet 12-20 3x/week ity of 00:00: 00:00 1mg [place] 00 :00 4x/week Medical Branch dofetilide 2022-0 2022- No [id number] 2 (two) Univers 125 mcg 9-07 09-29 times a ity of capsule 00:00: 00:00 day [place] 00 :00 Medical Branch amoxicillin 3-0 2023- No 1{tbl} Take 1 U nivers -clavulanat 12-20 tablet by it y of e 875-125 00:00: 00:00 mouth [place] mg per 00 :00 every Medical tablet morning Branch and evening. metoprolol 2022-0 Yes Univers tartrate 25 8-11 ity of mg tablet 00:00: [place] 00 Medical Branch metoprolol 2022-0 Yes [facility] tartrate 25 8-11 ity of mg tablet 00:00: [place] 00 Medical Branch metoprolol 2022-0 Yes [facility] tartrate 25 8-11 ity of mg tablet 00:00: [place] 00 Medical Branch metoprolol 2022-0 Yes [facility] tartrate 25 8-11 ity of mg tablet 00:00: [place] 00 Medical Branch metoprolol 2022-0 2023- No Univer s tartrate 25 801-11 ity of mg tablet 00:00: 00:00 [place] 00 :00 Medical Branch Diclofenac 2022-0 Yes Univers Sodium 1 % 8-08 ity of gel 00:00: [place] 00 Medical Branch Diclofenac 2022-0 Yes Univers Sodium 1 % 8-08 ity of gel 00:00: [place] 00 Medical Branch Diclofenac 2022-0 Yes Univers Sodium 1 % 8-08 ity of gel 00:00: [place] 00 Medical Branch Diclofenac 2022-0 Yes Univers Sodium 1 % 8-08 ity of gel 00:00: 00 Medical Branch Diclofenac 2022-0 2023- No Univer s Sodium 1 % 808 29 ity of gel 00:00: 00:00 [place] 00 :00 Medical Branch atorvastati 2022-0 Yes 80mg Take 1 Univ ers n 80 mg 7-12 tablet by ity of tablet 00:00: mouth at [place] 00 bedtime. Medical Branch atorvastati 2022-0 Yes 80mg Take 1 Univ ers n 80 mg 7-12 tablet by ity of tablet 00:00: mouth at [place] [id number] bedtime. Medical Branch atorvastati 2022-0 Yes 80mg Take 1 Univ ers n 80 mg 7-12 tablet by ity of tablet 00:00: mouth at [place] [address] bedtime. Medical Branch atorvastati 2023-0 Yes 80mg Take 1 Univ ers n 80 mg 7-12 tablet by ity of tablet 00:00: mouth at [place] [address] bedtime. Medical Branch atorvastati 2023-0 Yes 80mg Take 1 Univ ers n 80 mg 7-12 tablet by ity of tablet 00:00: mouth at [place] bedtime. Medical Branch atorvastati 2023-0 Yes 80mg Take 1 Univ ers n 80 mg 7-12 tablet by ity of tablet 00:00: mouth at [place] bedtime. Medical Branch atorvastati 2023-0 Yes 80mg Take 1 Univ ers n 80 mg 7-12 tablet by ity of tablet 00:00: mouth at [place] [address] bedtime. Medical Branch atorvastati 2023-0 Yes 80mg Take 1 Univ ers n 80 mg 7-12 tablet by ity of tablet 00:00: mouth at [place] [address] bedtime. Medical Branch atorvastati 2023-0 Yes 80mg Take 1 Univ ers n 80 mg 7-12 tablet by ity of tablet 00:00: mouth at [place] [address] bedtime. Medical Branch atorvastati 2023-0 Yes 80mg Take 1 Univ ers n 80 mg 7-12 tablet by ity of tablet 00:00: mouth at [place] [address] bedtime. Medical Branch atorvastati 2023-0 Yes 80mg Take 1 Univ ers n 80 mg 7-12 tablet by ity of tablet 00:00: mouth at [place] [address] bedtime. Medical Branch atorvastati 2023-0 Yes 80mg Take 1 Univ ers n 80 mg 7-12 tablet by ity of tablet 00:00: mouth at [place] [address] bedtime. Medical Branch atorvastati 2023-0 Yes 80mg Take 1 Univ ers n 80 mg 7-12 tablet by ity of tablet 00:00: mouth at [place] [address] bedtime. Medical Branch atorvastati 2023-0 Yes 80mg Take 1 Univ ers n 80 mg 7-12 tablet by ity of tablet 00:00: mouth at [place] [address] bedtime. Medical Branch atorvastati 2023-0 Yes 80mg Take 1 Univ ers n 80 mg 7-12 tablet by ity of tablet 00:00: mouth at [place] [address] bedtime. Medical Branch atorvastati 2023-0 Yes 80mg Take 1 Univ ers n 80 mg 7-12 tablet by ity of tablet 00:00: mouth at [place] [address] bedtime. Medical Branch atorvastati 2023-0 Yes 80mg Take 1 Univ ers n 80 mg 7-12 tablet by ity of tablet 00:00: mouth at [place] [address] bedtime. Medical Branch atorvastati 2023-0 Yes 80mg Take 1 Univ ers n 80 mg 7-12 tablet by ity of tablet 00:00: mouth at [place] bedtime. Medical Branch atorvastati 2023-0 Yes 80mg Take 1 Univ ers n 80 mg 7-12 tablet by ity of tablet 00:00: mouth at [place] bedtime. Medical Branch atorvastati 3-0 Yes 80mg Take 1 Univ ers n 80 mg 7-12 tablet by ity of tablet 00:00: mouth at [place] [address] bedtime. Medical Branch atorvastati 2023-0 Yes 80mg Take 1 Univ ers n 80 mg 7-12 tablet by ity of tablet 00:00: mouth at [place] [address] bedtime. Medical Branch atorvastati 2023-0 Yes 80mg Take 1 Univ ers n 80 mg 7-12 tablet by ity of tablet 00:00: mouth at [place] [address] bedtime. Medical Branch atorvastati 3-0 Yes 80mg Take 1 Univ ers n 80 mg 7-12 tablet by ity of tablet 00:00: mouth at [place] [address] bedtime. Medical Branch atorvastati 2023-0 Yes 80mg Take 1 Univ ers n 80 mg 7-12 tablet by ity of tablet 00:00: mouth at [place] [address] bedtime. [facility] atorvastati 2023-0 Yes 80mg Take 1 [facility] 80 mg 7-12 tablet by [facility] tablet 00:00: mouth at [place] [address] bedtime. [facility] atorvastati 2023-0 Yes 80mg Take 1 [facility] 80 mg 7-12 tablet by [facility] tablet 00:00: mouth at [place] [address] bedtime. [facility] atorvastati 2023-0 Yes 80mg Take 1 [facility] 80 mg 7-12 tablet by [facility] tablet 00:00: mouth at [place] [address] bedtime. [facility] atorvastati 2023-0 Yes 80mg Take 1 [facility] n 80 mg 7-12 tablet by [facility] of tablet 00:00: mouth at [place] [address] bedtime. [facility] atorvastati 2023-0 Yes 80mg Take 1 [facility] n 80 mg 7-12 tablet by [facility] of tablet 00:00: mouth at [place] [address] bedtime. [facility] atorvastati 2023-0 Yes 80mg Take 1 [facility] n 80 mg 7-12 tablet by [facility] of tablet 00:00: mouth at [place] bedtime. [facility] atorvastati 2023-0 Yes 80mg Take 1 [facility] n 80 mg 7-12 tablet by [facility] of tablet 00:00: mouth at [place] bedtime. [facility] atorvastati 2023-0 Yes 80mg Take 1 [facility] n 80 mg 7-12 tablet by [facility] of tablet 00:00: mouth at [place] [address] bedtime. [facility] atorvastati 2023-0 Yes 80mg Take 1 [facility] n 80 mg 7-12 tablet by [facility] of tablet 00:00: mouth at [place] [address] bedtime. [facility] atorvastati 2023-0 Yes 80mg Take 1 [facility] n 80 mg 7-12 tablet by [facility] of tablet 00:00: mouth at [place] [address] bedtime. [facility] atorvastati 2023-0 Yes 80mg Take 1 [facility] n 80 mg 7-12 tablet by [facility] of tablet 00:00: mouth at [place] [address] bedtime. [facility] atorvastati 2023-0 Yes 80mg Take 1 [facility] n 80 mg 7-12 tablet by [facility] of tablet 00:00: mouth at [place] [address] bedtime. [facility] atorvastati 2023-0 Yes 80mg Take 1 [facility] n 80 mg 7-12 tablet by [facility] of tablet 00:00: mouth at [place] [address] bedtime. [facility] atorvastati 2023-0 Yes 80mg Take 1 [facility] n 80 mg 7-12 tablet by [facility] of tablet 00:00: mouth at [place] [address] bedtime. [facility] atorvastati 2023-0 Yes 80mg Take 1 [facility] n 80 mg 7-12 tablet by [facility] of tablet 00:00: mouth at [place] [address] bedtime. [facility] atorvastati 2023-0 Yes 80mg Take 1 [facility] n 80 mg 7-12 tablet by [facility] of tablet 00:00: mouth at [place] [address] bedtime. [facility] atorvastati 2023-0 Yes 80mg Take 1 [facility] 80 mg 7-12 tablet by [facility] of tablet 00:00: mouth at [place] [address] bedtime. [facility] atorvastati 2023-0 Yes 80mg Take 1 [facility] 80 mg 7-12 tablet by [facility] of tablet 00:00: mouth at [place] [address] bedtime. [facility] atorvastati 2023-0 Yes 80mg Take 1 [facility] n 80 mg 7-12 tablet by [facility] of tablet 00:00: mouth at [place] bedtime. [facility] atorvastati 2023-0 Yes 80mg Take 1 [facility] n 80 mg 7-12 tablet by [facility] of tablet 00:00: mouth at [place] bedtime. [facility] atorvastati 3-0 Yes 80mg Take 1 [facility] n 80 mg 7-12 tablet by [facility] of tablet 00:00: mouth at [place] [address] bedtime. [facility] atorvastati 2023-0 Yes 80mg Take 1 [facility] n 80 mg 7-12 tablet by [facility] of tablet 00:00: mouth at [place] [address] bedtime. [facility] atorvastati 2023-0 Yes 80mg Take 1 [facility] n 80 mg 7-12 tablet by [facility] of tablet 00:00: mouth at [place] [address] bedtime. [facility] atorvastati 3-0 Yes 80mg Take 1 [facility] n 80 mg 7-12 tablet by [facility] of tablet 00:00: mouth at [place] [address] bedtime. [facility] atorvastati 2023-0 Yes 80mg Take 1 [facility] 80 mg 7-12 tablet by [facility]y of tablet 00:00: mouth at [place] [address] bedtime. [facility] atorvastati 2023-0 Yes 80mg Take 1 [facility] 80 mg 7-12 tablet by [facility] of tablet 00:00: mouth at [place] [address] bedtime. [facility] atorvastati 2023-0 Yes 80mg Take 1 [facility] 80 mg 7-12 tablet by [facility] of tablet 00:00: mouth at [place] [address] bedtime. [facility] atorvastati 2023-0 Yes 80mg Take 1 [facility] n 80 mg 7-12 tablet by [facility] of tablet 00:00: mouth at [place] [address] bedtime. [facility] atorvastati 2023-0 Yes 80mg Take 1 [facility] n 80 mg 7-12 tablet by [facility] of tablet 00:00: mouth at [place] 00 bedtime. [facility] atorvastati 2022-0 Yes 80mg Take 1 [facility] n 80 mg 7-12 tablet by [facility] of tablet 00:00: mouth at [place] bedtime. [facility] atorvastati 0 Yes 80mg Take 1 [facility] n 80 mg 7-12 tablet by [facility] of tablet 00:00: mouth at [place] bedtime. [facility] atorvastati 0 Yes 80mg Take 1 [facility] n 80 mg 7-12 tablet by [facility] of tablet 00:00: mouth at [place] bedtime. [facility] atorvastati 0 Yes 80mg Take 1 [facility] n 80 mg 7-12 tablet by [facility] of tablet 00:00: mouth at [place] bedtime. [facility] atorvastati 0 Yes 80mg Take 1 [facility] n 80 mg 7-12 tablet by [facility] of tablet 00:00: mouth at [place] bedtime. [facility] atorvastati 0 Yes 80mg Take 1 [facility] 80 mg 7-12 tablet by [facility] of tablet 00:00: mouth at [place] bedtime. [facility] atorvastati 0 Yes 80mg Take 1 [facility] 80 mg 7-12 tablet by [facility] of tablet 00:00: mouth at [place] bedtime. [facility] Branch warfarin 1 0 Yes [id number] 2mg Take 2 [facility] mg tablet 7-07 tablets by [facility] of 00:00: mouth 00 every Medical evening. Branch Take 1mg x3 days, then 2mg x 4 days warfarin 1 0 Yes [id number] 2mg Take 2 [facility] mg tablet 7-07 tablets by [facility] of 00:00: mouth [place] 00 every Medical evening. Branch Take 1mg x3 days, then 2mg x 4 days warfarin 1 0 Yes [id number] 2mg Take 2 [facility] mg tablet 7-07 tablets by [facility] of 00:00: mouth 00 every Medical evening. Branch Take 1mg x3 days, then 2mg x 4 days warfarin 1 2022-0 Yes [id number] 2mg Take 2 [facility] mg tablet 7-07 tablets by [facility] of 00:00: mouth 00 every Medical evening. Branch Take 1mg x3 days, then 2mg x 4 days warfarin 1 2022-0 Yes [id number] 2mg Take 2 [facility] mg tablet 7-07 tablets by [facility] of 00:00: mouth [place] 00 every Medical evening. Branch Take 1mg x3 days, then 2mg x 4 days warfarin 0 Yes [id number] 2mg Take 2 [facility] mg tablet 7-07 tablets by [facility] of 00:00: mouth [place] 00 every Medical evening. Branch Take 1mg x3 days, then 2mg x 4 days warfarin Yes [id number] 2mg Take 2 [facility] mg tablet 7-07 tablets by [facility] of 00:00: mouth [place] 00 every Medical evening. Branch Take 1mg x3 days, then 2mg x 4 days warfarin Yes [id number] 2mg Take 2 [facility] mg tablet 7-07 tablets by [facility] of 00:00: mouth [place] 00 every Medical evening. Branch Take 1mg x3 days, then 2mg x 4 days warfarin Yes [id number] 2mg Take 2 [facility] mg tablet 7-07 tablets by [facility] of 00:00: mouth [place] 00 every Medical evening. Branch Take 1mg x3 days, then 2mg x 4 days warfarin Yes [id number] 2mg Take 2 [facility] mg tablet 7-07 tablets by [facility] of 00:00: mouth [place] 00 every Medical evening. Branch Take 1mg x3 days, then 2mg x 4 days warfarin Yes [id number] 2mg Take 2 [facility] mg tablet 7-07 tablets by [facility] of 00:00: mouth [place] 00 every Medical evening. Branch Take 1mg x3 days, then 2mg x 4 days warfarin 0 Yes [id number] 2mg Take 2 [facility] mg tablet 7-07 tablets by [facility] of 00:00: mouth [place] 00 every Medical evening. Branch Take 1mg x3 days, then 2mg x 4 days warfarin 0 Yes [id number] 2mg Take 2 [facility] mg tablet 7-07 tablets by [facility] of 00:00: mouth [place] 00 every Medical evening. Branch Take 1mg x3 days, then 2mg x 4 days warfarin 0 Yes [id number] 2mg Take 2 [facility] mg tablet 7-07 tablets by [facility] of 00:00: mouth [place] 00 every Medical evening. Branch Take 1mg x3 days, then 2mg x 4 days warfarin 0 Yes [id number] 2mg Take 2 [facility] mg tablet 7-07 tablets by [facility] of 00:00: mouth [place] 00 every Medical evening. Branch Take 1mg x3 days, then 2mg x 4 days warfarin Yes [id number] 2mg Take 2 [facility] mg tablet 7-07 tablets by [facility] of 00:00: mouth [place] 00 every Medical evening. Branch Take 1mg x3 days, then 2mg x 4 days warfarin Yes [id number] 2mg Take 2 [facility] mg tablet 7-07 tablets by [facility] of 00:00: mouth [place] 00 every Medical evening. Branch Take 1mg x3 days, then 2mg x 4 days warfarin Yes [id number] 2mg Take 2 [facility] mg tablet 7-07 tablets by [facility] of 00:00: mouth [place] 00 every Medical evening. Branch Take 1mg x3 days, then 2mg x 4 days warfarin Yes [id number] 2mg Take 2 [facility] mg tablet 7-07 tablets by [facility] of 00:00: mouth [place] 00 every Medical evening. Branch Take 1mg x3 days, then 2mg x 4 days warfarin Yes [id number] 2mg Take 2 [facility] mg tablet 7-07 tablets by [facility] of 00:00: mouth [place] 00 every Medical evening. Branch Take 1mg x3 days, then 2mg x 4 days warfarin Yes [id number] 2mg Take 2 [facility] mg tablet 7-07 tablets by [facility] of 00:00: mouth [place] 00 every Medical evening. Branch Take 1mg x3 days, then 2mg x 4 days warfarin Yes [id number] 2mg Take 2 [facility] mg tablet 7-07 tablets by [facility] of 00:00: mouth [place] 00 every Medical evening. Branch Take 1mg x3 days, then 2mg x 4 days warfarin Yes [id number] 2mg Take 2 [facility] mg tablet 7-07 tablets by [facility] of 00:00: mouth [place] 00 every Medical evening. Branch Take 1mg x3 days, then 2mg x 4 days warfarin Yes [id number] 2mg Take 2 [facility] mg tablet 7-07 tablets by [facility] of 00:00: mouth [place] 00 every Medical evening. Branch Take 1mg x3 days, then 2mg x 4 days warfarin 1 0 Yes [id number] 2mg Take 2 [facility] mg tablet 7- tablets by [facility] of 00:00: mouth [place] 00 every Medical evening. Branch Take 1mg x3 days, then 2mg x 4 days warfarin 1 0 Yes [id number] 2mg Take 2 [facility] mg tablet 7- tablets by [facility] of 00:00: mouth [place] 00 every Medical evening. Branch Take 1mg x3 days, then 2mg x 4 days warfarin 1 0 Yes [id number] 2mg Take 2 [facility] mg tablet 10-19 tablets by [facility] of 00:00: mouth [place] 00 every Medical evening. Branch Take 1mg x3 days, then 2mg x 4 days warfarin 1 0 Yes [id number] 2mg Take 2 [facility] mg tablet 7 tablets by [facility] of 00:00: mouth [place] 00 every Medical evening. Branch Take 1mg x3 days, then 2mg x 4 days warfarin 1 Yes [id number] 2mg Take 2 [facility] mg tablet 10-19 tablets by [facility] of 00:00: mouth [place] 00 every Medical evening. Branch Take 1mg x3 days, then 2mg x 4 days warfarin 1 2022- No [id number] 2mg Take 2 [facility] mg tablet 10-19 tablets by [facility] of 00:00: 00:00 mouth [place] 00 :00 every Medical evening. Branch Take 1mg x3 days, then 2mg x 4 days warfarin 1 2022- No [id number] 2mg Take 2 [facility] mg tablet 10-19 tablets by [facility] of 00:00: 00:00 mouth [place] 00 :00 every Medical evening. Branch Take 1mg x3 days, then 2mg x 4 days alendronate 2022-0 2022- No 70mg Take 1 [facility] vers 70 mg -26 -24 tablet by [facility] tablet 00:00: 00:00 mouth. [place] 00 :00 Medical Branch ezetimibe 2022-0 Yes [id number] 10mg Take 1 [facility] (ZETIA) 10 4-18 tablet by [facility] mg tablet 00:00: mouth [place] 00 the Medical morning. Branch ezetimibe 2022-0 Yes [id number] 10mg Take 1 [facility] (ZETIA) 10 4-18 tablet by [facility] mg tablet 00:00: mouth [place] 00 the Medical morning. Branch ezetimibe 2023-0 Yes [id number] 10mg Take 1 [facility] (ZETIA) 10 4-18 tablet by [facility] mg tablet 00:00: mouth [place] 00 the Medical morning. Branch ezetimibe 2023-0 Yes [id number] 10mg Take 1 [facility] (ZETIA) 10 4-18 tablet by [facility] mg tablet 00:00: mouth [place] 00 the Medical morning. Branch ezetimibe 2023-0 Yes [id number] 10mg Take 1 [facility] (ZETIA) 10 4-18 tablet by [facility] mg tablet 00:00: mouth [place] 00 the Medical morning. Branch ezetimibe 2023-0 Yes [id number] 10mg Take 1 [facility] (ZETIA) 10 4-18 tablet by [facility] mg tablet 00:00: mouth [place] 00 the Medical morning. Branch ezetimibe 3-0 Yes [id number] 10mg Take 1 [facility] (ZETIA) 10 4-18 tablet by [facility] mg tablet 00:00: mouth [place] 00 the Medical morning. Branch ezetimibe 3-0 Yes [id number] 10mg Take 1 [facility] (ZETIA) 10 4-18 tablet by [facility] mg tablet 00:00: mouth [place] 00 the Medical morning. Branch ezetimibe 2023-0 Yes [id number] 10mg Take 1 [facility] (ZETIA) 10 4-18 tablet by [facility] mg tablet 00:00: mouth [place] 00 the Medical morning. Branch ezetimibe 2023-0 Yes [id number] 10mg Take 1 [facility] (ZETIA) 10 4-18 tablet by [facility] mg tablet 00:00: mouth [place] 00 the Medical morning. Branch ezetimibe 2023-0 Yes [id number] 10mg Take 1 [facility] (ZETIA) 10 4-18 tablet by [facility] mg tablet 00:00: mouth [place] 00 the Medical morning. Branch ezetimibe 2023-0 Yes [id number] 10mg Take 1 [facility] (ZETIA) 10 4-18 tablet by [facility] mg tablet 00:00: mouth [place] 00 the Medical morning. Branch ezetimibe 2023-0 Yes [id number] 10mg Take 1 [facility] (ZETIA) 10 4-18 tablet by [facility] mg tablet 00:00: mouth [place] 00 the Medical morning. Branch ezetimibe 2023-0 Yes [id number] 10mg Take 1 [facility] (ZETIA) 10 4-18 tablet by [facility] mg tablet 00:00: mouth [place] 00 the Medical morning. Branch ezetimibe 2023-0 Yes [id number] 10mg Take 1 [facility] (ZETIA) 10 4-18 tablet by [facility] mg tablet 00:00: mouth [place] 00 the Medical morning. Branch ezetimibe 2023-0 Yes [id number] 10mg Take 1 [facility] (ZETIA) 10 4-18 tablet by [facility] mg tablet 00:00: mouth [place] 00 the Medical morning. Branch ezetimibe 3-0 Yes [id number] 10mg Take 1 [facility] (ZETIA) 10 4-18 tablet by [facility] mg tablet 00:00: mouth [place] 00 the Medical morning. Branch ezetimibe 3-0 Yes [id number] 10mg Take 1 [facility] (ZETIA) 10 4-18 tablet by [facility] mg tablet 00:00: mouth [place] 00 the Medical morning. Branch ezetimibe 2023-0 Yes [id number] 10mg Take 1 [facility] (ZETIA) 10 4-18 tablet by [facility] mg tablet 00:00: mouth [place] 00 the Medical morning. Branch ezetimibe 2023-0 Yes [id number] 10mg Take 1 [facility] (ZETIA) 10 4-18 tablet by [facility] mg tablet 00:00: mouth [place] 00 the Medical morning. Branch ezetimibe 2023-0 Yes [id number] 10mg Take 1 [facility] (ZETIA) 10 4-18 tablet by [facility] mg tablet 00:00: mouth [place] 00 the Medical morning. Branch ezetimibe 2023-0 Yes [id number] 10mg Take 1 [facility] (ZETIA) 10 4-18 tablet by [facility] mg tablet 00:00: mouth [place] 00 the Medical morning. Branch ezetimibe 2023-0 Yes [id number] 10mg Take 1 [facility] (ZETIA) 10 4-18 tablet by [facility] mg tablet 00:00: mouth [place] 00 the Medical morning. Branch ezetimibe 2023-0 Yes [id number] 10mg Take 1 [facility] (ZETIA) 10 4-18 tablet by [facility] mg tablet 00:00: mouth [place] 00 the Medical morning. Branch ezetimibe 2023-0 Yes [id number] 10mg Take 1 [facility] (ZETIA) 10 4-18 tablet by [facility] mg tablet 00:00: mouth [place] 00 the Medical morning. Branch ezetimibe 2023-0 Yes [id number] 10mg Take 1 [facility] (ZETIA) 10 4-18 tablet by [facility] mg tablet 00:00: mouth [place] 00 the Medical morning. Branch ezetimibe 3-0 Yes [id number] 10mg Take 1 [facility] (ZETIA) 10 4-18 tablet by [facility] of mg tablet 00:00: mouth [place] 00 the Medical morning. Branch ezetimibe 3-0 Yes [id number] 10mg Take 1 [facility] (ZETIA) 10 4-18 tablet by [facility] of mg tablet 00:00: mouth [place] 00 the Medical morning. Branch ezetimibe 2023-0 Yes [id number] 10mg Take 1 [facility] (ZETIA) 10 4-18 tablet by [facility] mg tablet 00:00: mouth [place] 00 the Medical morning. Branch ezetimibe 2023-0 Yes [id number] 10mg Take 1 [facility] (ZETIA) 10 4-18 tablet by [facility] of mg tablet 00:00: mouth [place] 00 the Medical morning. Branch ezetimibe 2023-0 Yes [id number] 10mg Take 1 [facility] (ZETIA) 10 4-18 tablet by [facility] of mg tablet 00:00: mouth [place] 00 the Medical morning. Branch ezetimibe 2023-0 Yes [id number] 10mg Take 1 [facility] (ZETIA) 10 4-18 tablet by [facility] of mg tablet 00:00: mouth [place] 00 the Medical morning. Branch ezetimibe 2023-0 Yes [id number] 10mg Take 1 [facility] (ZETIA) 10 4-18 tablet by [facility] of mg tablet 00:00: mouth [place] 00 the Medical morning. Branch ezetimibe 2023-0 Yes [id number] 10mg Take 1 [facility] (ZETIA) 10 4-18 tablet by [facility] of mg tablet 00:00: mouth [place] 00 the Medical morning. Branch ezetimibe 2023-0 Yes [id number] 10mg Take 1 [facility] (ZETIA) 10 4-18 tablet by [facility] of mg tablet 00:00: mouth [place] 00 the Medical morning. Branch ezetimibe 2023-0 Yes [id number] 10mg Take 1 [facility] (ZETIA) 10 4-18 tablet by [facility] mg tablet 00:00: mouth [place] 00 the Medical morning. Branch ezetimibe 3-0 Yes [id number] 10mg Take 1 [facility] (ZETIA) 10 4-18 tablet by [facility] of mg tablet 00:00: mouth [place] 00 the Medical morning. Branch ezetimibe 3-0 Yes [id number] 10mg Take 1 [facility] (ZETIA) 10 4-18 tablet by [facility] mg tablet 00:00: mouth [place] 00 the Medical morning. Branch ezetimibe 2023-0 Yes [id number] 10mg Take 1 [facility] (ZETIA) 10 4-18 tablet by [facility] mg tablet 00:00: mouth [place] 00 the Medical morning. Branch ezetimibe 2023-0 Yes [id number] 10mg Take 1 [facility] (ZETIA) 10 4-18 tablet by [facility] mg tablet 00:00: mouth in [place] 00 the Medical morning. Branch ezetimibe 2023-0 Yes [id number] 10mg Take 1 [facility] (ZETIA) 10 4-18 tablet by [facility] mg tablet 00:00: mouth in [place] 00 the Medical morning. Branch ezetimibe 2023-0 Yes [id number] 10mg Take 1 [facility] (ZETIA) 10 4-18 tablet by [facility] mg tablet 00:00: mouth in [place] 00 the Medical morning. Branch ezetimibe 2023-0 Yes [id number] 10mg Take 1 [facility] (ZETIA) 10 4-18 tablet by [facility] mg tablet 00:00: mouth in [place] 00 the Medical morning. Branch ezetimibe 2023-0 Yes [id number] 10mg Take 1 [facility] (ZETIA) 10 4-18 tablet by [facility] of mg tablet 00:00: mouth [place] 00 the Medical morning. Branch ezetimibe 2023-0 Yes [id number] 10mg Take 1 [facility] (ZETIA) 10 4-18 tablet by [facility] of mg tablet 00:00: mouth in [place] 00 the Medical morning. Branch ezetimibe 2023-0 Yes [id number] 10mg Take 1 [facility] (ZETIA) 10 4-18 tablet by [facility] of mg tablet 00:00: mouth [place] 00 the Medical morning. Branch ezetimibe 3-0 Yes [id number] 10mg Take 1 [facility] (ZETIA) 10 4-18 tablet by [facility] of mg tablet 00:00: mouth in [place] 00 the Medical morning. Branch ezetimibe 3-0 Yes [id number] 10mg Take 1 [facility] (ZETIA) 10 4-18 tablet by [facility] of mg tablet 00:00: mouth in [place] 00 the Medical morning. Branch ezetimibe 2023-0 Yes [id number] 10mg Take 1 [facility] (ZETIA) 10 4-18 tablet by [facility] of mg tablet 00:00: mouth in [place] 00 the Medical morning. Branch ezetimibe 2023-0 Yes [id number] 10mg Take 1 [facility] (ZETIA) 10 4-18 tablet by [facility] of mg tablet 00:00: mouth in [place] 00 the Medical morning. Branch ezetimibe 2023-0 Yes [id number] 10mg Take 1 [facility] (ZETIA) 10 4-18 tablet by [facility] mg tablet 00:00: mouth [place] 00 the Medical morning. Branch ezetimibe 2023-0 Yes [id number] 10mg Take 1 [facility] (ZETIA) 10 4-18 tablet by [facility] of mg tablet 00:00: mouth in [place] 00 the Medical morning. Branch ezetimibe 2023-0 Yes [id number] 10mg Take 1 [facility] (ZETIA) 10 4-18 tablet by [facility] mg tablet 00:00: mouth [place] 00 the Medical morning. Branch ezetimibe 2023-0 Yes [id number] 10mg Take 1 [facility] (ZETIA) 10 4-18 tablet by [facility] of mg tablet 00:00: mouth in [place] 00 the Medical morning. Branch ezetimibe 2023-0 Yes [id number] 10mg Take 1 [facility] (ZETIA) 10 4-18 tablet by [facility] of mg tablet 00:00: mouth in [place] 00 the Medical morning. Branch ezetimibe 2023-0 Yes [id number] 10mg Take 1 [facility] (ZETIA) 10 4-18 tablet by [facility] of mg tablet 00:00: mouth in [place] 00 the Medical morning. Branch ezetimibe 3-0 Yes [id number] 10mg Take 1 [facility] (ZETIA) 10 4-18 tablet by [facility] of mg tablet 00:00: mouth in [place] 00 the Medical morning. Branch ezetimibe 3-0 Yes [id number] 10mg Take 1 [facility] (ZETIA) 10 4-18 tablet by [facility] of mg tablet 00:00: mouth in [place] 00 the Medical morning. Branch ezetimibe 2023-0 Yes [id number] 10mg Take 1 [facility] (ZETIA) 10 4-18 tablet by [facility] of mg tablet 00:00: mouth in [place] 00 the Medical morning. Branch ezetimibe 2023-0 Yes [id number] 10mg Take 1 [facility] (ZETIA) 10 4-18 tablet by [facility] of mg tablet 00:00: mouth in [place] 00 the Medical morning. Branch ezetimibe 2023-0 Yes [id number] 10mg Take 1 [facility] (ZETIA) 10 4-18 tablet by [facility] of mg tablet 00:00: mouth in [place] 00 the Medical morning. Branch ezetimibe 2023-0 Yes [id number] 10mg Take 1 [facility] (ZETIA) 10 4-18 tablet by [facility] mg tablet 00:00: mouth in [place] 00 the Medical morning. [place] ezetimibe 3-0 Yes [id number] 10mg Take 1 [facility] (ZETIA) 10 4-18 tablet by [facility] of mg tablet 00:00: mouth in [place] 00 the Medical morning. Branch ezetimibe 3-0 Yes [id number] 10mg Take 1 [facility] (ZETIA) 10 4-18 tablet by [facility] of mg tablet 00:00: mouth in [place] 00 the Medical morning. Branch ezetimibe 3-0 Yes [id number] 10mg Take 1 [facility] (ZETIA) 10 4-18 tablet by [facility] of mg tablet 00:00: mouth in [place] 00 the Medical morning. [place] ezetimibe 2022-0 Yes [id number] 10mg Take 1 [facility] (ZETIA) 10 4-18 tablet by [facility] mg tablet 00:00: mouth in [place] 00 the Medical morning. [place] ezetimibe 2022-0 Yes [id number] 10mg Take 1 [facility] (ZETIA) 10 4-18 tablet by [facility] of mg tablet 00:00: mouth in [place] 00 the Medical morning. [place] ezetimibe 3-0 Yes [id number] 10mg Take 1 [facility] (ZETIA) 10 4-18 tablet by [facility] of mg tablet 00:00: mouth in [place] 00 the Medical morning. [place] ezetimibe 2022-0 Yes [id number] 10mg Take 1 [facility] (ZETIA) 10 4-18 tablet by [facility] mg tablet 00:00: mouth in [place] 00 the Medical morning. [place] ezetimibe 3-0 2023- No [id number] 10mg Take 1 [facility] (ZETIA) 10 4-18 09-29 tablet by it[facility] of mg tablet 00:00: 00:00 mouth in [place] 00 :00 the Medical morning. [place] alendronate 2022-0 Yes 70mg 70 mg, [facility] ers (FOSAMAX) 06-13 Oral, it[facility] of tablet 70 06:00: QWEEKLY, [place] mg 00 First dose Medical on Sat06/13/22 at 0000, Until Discontinu ed, Routine magnesium 2023-0 202- No 400mg 400 mg, [facility] vers oxide 2-28 06-12 Oral, ity of (MAG-OX 14:45: 14:19 ONCE, 1 [place] 400) tablet 00 :00 dose, On Medi tyrone 400 mg Tue Branch 06/12/22 at 0845, Routine HYDROcodone 0 Yes [...] 35 Medical tablet Branch NaCl 0.9% Yes [id number] 250mL at 20 [facility] (NS) IV 2-27 mL/hr, IV [facility] of infusion 16:15: Infusion, [place] 250 mL 00 CONTINUOUS Medical , Starting Branch on [facility] 06/11/22 at 1015, Until Discontinu ed, Routine&lt ;br>KVO
lidocaine 2022- No [id number] 15mL 15 mL, [facility] 2% viscous 06-11 9107 Oral, ity of (LIDOCAINE 16:15: 16:15 ONCE, 1 [place] VISCOUS) 2 00 :00 dose, On Medic al % solution [facility] 15 mL 06/11/22 at 1015, Routine FENTanyl PF 2022- No [id number] 50ug 50 mcg, [facility] (SUBLIMAZE 06-11 9107 Slow IV ity o f (PF)) 16:15: 16:15 Push, [place] injection 00 :00 ONCE, 1 Medical 50 mcg dose, On Branch [facility] 06/11/22 at 1015, Routine midazolam 2022- No [id number] 1mg 1 mg, IV [facility] (VERSED) 06-11 9107 Push, ity of injection 1 16:15: 16:15 ONCE, 1 [place] mg 00 :00 dose, On Medical [facility] 06/11/22 at 1015, Routine warfarin 1 Yes [id number] 2mg Take 2 [facility] mg tablet 2-27 tablets by ity of 00:00: mouth [place] 00 every Medical evening. Branch Alternate take 1mg x3 days, then 2mg x 4 days warfarin 1 Yes [id number] 2mg Take 2 [facility] mg tablet 2-27 tablets by ity of 00:00: mouth [place] 00 every Medical evening. Branch Alternate take 1mg x3 days, then 2mg x 4 days warfarin 1 2022-0 Yes [id number] 2mg Take 2 [facility] mg tablet 2-27 tablets by ity of 00:00: mouth [place] 00 every Medical evening. Branch Alternate take 1mg x3 days, then 2mg x 4 days warfarin 1 2022-0 Yes [id number] 2mg Take 2 [facility] mg tablet 2-27 tablets by ity of 00:00: mouth [place] 00 every Medical evening. Branch Alternate take 1mg x3 days, then 2mg x 4 days warfarin 1 2022-0 Yes [id number] 2mg Take 2 [facility] mg tablet 2-27 tablets by ity of 00:00: mouth [place] 00 every Medical evening. Branch Alternate take 1mg x3 days, then 2mg x 4 days warfarin 1 2022-0 Yes [id number] 2mg Take 2 [facility] mg tablet 2-27 tablets by ity of 00:00: mouth [place] 00 every Medical evening. Branch Alternate take 1mg x3 days, then 2mg x 4 days warfarin 1 2022-0 Yes [id number] 2mg Take 2 [facility] mg tablet 2-27 tablets by ity of 00:00: mouth [place] 00 every Medical evening. Branch Alternate take 1mg x3 days, then 2mg x 4 days warfarin 1 2022-0 Yes [id number] 2mg Take 2 [facility] mg tablet 2-27 tablets by ity of 00:00: mouth [place] 00 every Medical evening. Branch Alternate take 1mg x3 days, then 2mg x 4 days warfarin 1 0 Yes [id number] 2mg Take 2 [facility] mg tablet 2-27 tablets by ity of 00:00: mouth [place] 00 every Medical evening. Branch Alternate take 1mg x3 days, then 2mg x 4 days warfarin 1 2022-0 Yes [id number] 2mg Take 2 [facility] mg tablet 2-27 tablets by ity of 00:00: mouth [place] 00 every Medical evening. Branch Alternate take 1mg x3 days, then 2mg x 4 days warfarin 1 2022-0 Yes [id number] 2mg Take 2 [facility] mg tablet 2-27 tablets by ity of 00:00: mouth [place] 00 every Medical evening. Branch Alternate take 1mg x3 days, then 2mg x 4 days warfarin 1 2022-0 Yes [id number] 2mg Take 2 [facility] mg tablet 2-27 tablets by ity of 00:00: mouth [place] 00 every Medical evening. Branch Alternate take 1mg x3 days, then 2mg x 4 days warfarin 1 2022-0 Yes [id number] 2mg Take 2 [facility] mg tablet 2-27 tablets by ity of 00:00: mouth [place] 00 every Medical evening. Branch Alternate take 1mg x3 days, then 2mg x 4 days warfarin 1 2022-0 Yes [id number] 2mg Take 2 [facility] mg tablet 2-27 tablets by ity of 00:00: mouth [place] 00 every Medical evening. Branch Alternate take 1mg x3 days, then 2mg x 4 days warfarin 1 2022-0 Yes [id number] 2mg Take 2 [facility] mg tablet 2-27 tablets by ity of 00:00: mouth [place] 00 every Medical evening. Branch Alternate take 1mg x3 days, then 2mg x 4 days warfarin 2022-0 Yes [id number] 2mg Take 2 [facility] mg tablet 2-27 tablets by ity of 00:00: mouth [place] 00 every Medical evening. Branch Alternate take 1mg x3 days, then 2mg x 4 days warfarin 2022-0 Yes [id number] 2mg Take 2 [facility] mg tablet 2-27 tablets by ity of 00:00: mouth [place] 00 every Medical evening. Branch Alternate take 1mg x3 days, then 2mg x 4 days warfarin 1 2022-0 Yes [id number] 2mg Take 2 [facility] mg tablet 2-27 tablets by ity of 00:00: mouth [place] 00 every Medical evening. Branch Alternate take 1mg x3 days, then 2mg x 4 days warfarin 1 2022-0 Yes [id number] 2mg Take 2 [facility] mg tablet 2-27 tablets by ity of 00:00: mouth [place] 00 every Medical evening. Branch Alternate take 1mg x3 days, then 2mg x 4 days warfarin 1 2022-0 Yes [id number] 2mg Take 2 [facility] mg tablet 2-27 tablets by ity of 00:00: mouth [place] 00 every Medical evening. Branch Alternate take 1mg x3 days, then 2mg x 4 days warfarin 1 2022-0 Yes [id number] 2mg Take 2 [facility] mg tablet 2-27 tablets by ity of 00:00: mouth [place] 00 every Medical evening. Branch Alternate take 1mg x3 days, then 2mg x 4 days warfarin 1 2022-0 Yes [id number] 2mg Take 2 [facility] mg tablet 2-27 tablets by ity of 00:00: mouth [place] 00 every Medical evening. Branch Alternate take 1mg x3 days, then 2mg x 4 days warfarin 1 2022-0 Yes [id number] 2mg Take 2 [facility] mg tablet 2-27 tablets by ity of 00:00: mouth [place] 00 every Medical evening. Branch Alternate take 1mg x3 days, then 2mg x 4 days warfarin 1 2022-0 Yes [id number] 2mg Take 2 [facility] mg tablet 2-27 tablets by ity of 00:00: mouth [place] 00 every Medical evening. Branch Alternate take 1mg x3 days, then 2mg x 4 days warfarin 1 2022-0 Yes [id number] 2mg Take 2 [facility] mg tablet 2-27 tablets by ity of 00:00: mouth [place] 00 every Medical evening. Branch Alternate take 1mg x3 days, then 2mg x 4 days warfarin 2022-0 Yes [id number] 2mg Take 2 [facility] mg tablet 2-27 tablets by ity of 00:00: mouth [place] 00 every Medical evening. Branch Alternate take 1mg x3 days, then 2mg x 4 days warfarin 1 2022-0 Yes [id number] 2mg Take 2 [facility] mg tablet 2-27 tablets by ity of 00:00: mouth [place] 00 every Medical evening. Branch Alternate take 1mg x3 days, then 2mg x 4 days warfarin 2022-0 Yes [id number] 2mg Take 2 [facility] mg tablet 2-27 tablets by ity of 00:00: mouth [place] 00 every Medical evening. Branch Alternate take 1mg x3 days, then 2mg x 4 days warfarin 1 2022-0 Yes [id number] 2mg Take 2 [facility] mg tablet 2-27 tablets by ity of 00:00: mouth [place] 00 every Medical evening. Branch Alternate take 1mg x3 days, then 2mg x 4 days warfarin 1 2022-0 Yes [id number] 2mg Take 2 [facility] mg tablet 2-27 tablets by ity of 00:00: mouth [place] 00 every Medical evening. Branch Alternate take 1mg x3 days, then 2mg x 4 days warfarin 1 2022-0 Yes [id number] 2mg Take 2 [facility] mg tablet 2-27 tablets by ity of 00:00: mouth [place] 00 every Medical evening. Branch Alternate take 1mg x3 days, then 2mg x 4 days warfarin 1 2022-0 Yes [id number] 2mg Take 2 [facility] mg tablet 2-27 tablets by ity of 00:00: mouth [place] 00 every Medical evening. Branch Alternate take 1mg x3 days, then 2mg x 4 days warfarin 2022-0 Yes [id number] 2mg Take 2 [facility] mg tablet 2-27 tablets by ity of 00:00: mouth [place] 00 every Medical evening. Branch Alternate take 1mg x3 days, then 2mg x 4 days warfarin 1 2022-0 Yes [id number] 2mg Take 2 [facility] mg tablet 2-27 tablets by ity of 00:00: mouth [place] 00 every Medical evening. Branch Alternate take 1mg x3 days, then 2mg x 4 days warfarin 2022- Yes [id number] 2mg Take 2 [facility] mg tablet 2-27 tablets by ity of 00:00: mouth [place] 00 every Medical evening. Branch Alternate take 1mg x3 days, then 2mg x 4 days warfarin 2022-0 Yes [id number] 2mg Take 2 [facility] mg tablet 2-27 tablets by ity of 00:00: mouth [place] 00 every Medical evening. Branch Alternate take 1mg x3 days, then 2mg x 4 days warfarin 1 2022-0 Yes [id number] 2mg Take 2 [facility] mg tablet 2-27 tablets by ity of 00:00: mouth [place] 00 every Medical evening. Branch Alternate take 1mg x3 days, then 2mg x 4 days warfarin 2022-0 Yes [id number] 2mg Take 2 [facility] mg tablet 2-27 tablets by ity of 00:00: mouth [place] 00 every Medical evening. Branch Alternate take 1mg x3 days, then 2mg x 4 days warfarin 2022-0 Yes [id number] 2mg Take 2 [facility] mg tablet 2-27 tablets by ity of 00:00: mouth [place] 00 every Medical evening. Branch Alternate take 1mg x3 days, then 2mg x 4 days warfarin 2022-0 Yes [id number] 2mg Take 2 [facility] mg tablet 2-27 tablets by ity of 00:00: mouth [place] 00 every Medical evening. Branch Alternate take 1mg x3 days, then 2mg x 4 days warfarin 1 Yes [id number] 2mg Take 2 [facility] mg tablet 06-11 tablets by ity of 00:00: mouth [place] 00 every Medical evening. Branch Alternate take 1mg x3 days, then 2mg x 4 days warfarin 2 2022- Yes Warfarin Uni vers mg tablet 06-11 Oral ity of 00:00: active [place] 00 Medical Branch warfarin 2 0 Yes Warfarin Uni vers mg tablet 06-11 Oral ity of 00:00: active [place] [facility] Branch warfarin 2 0 Yes Warfarin Uni vers mg tablet 06-11 Oral ity of 00:00: active [place] [facility] Branch warfarin 2 Yes Warfarin Uni vers mg tablet 06-11 Oral ity of 00:00: active [place] [facility] warfarin 2 2022- No Warfarin [facility] mg tablet 06-11 Oral ity of 00:00: 00:00 active [place] 00 :00 [facility] Branch dofetilide 2022-2022- No 2 (two) Uni vers 125 mcg 06-11 times a ity of capsule 00:00: 00:00 day [place] 00 :00 [facility] Branch dofetilide 2022-2022- No 2 (two) Uni vers 125 mcg 06-11 times a ity of capsule 00:00: 00:00 day [place] 00 :00 [facility] warfarin 1 2022-2022- No [id number] 2mg Take 2 [facility] mg tablet 06-11 tablets by ity of 00:00: 00:00 mouth [place] 00 :00 every Medical evening. Branch Alternate take 1mg x3 days, then 2mg x 4 days warfarin 1 2022- No [id number] 2mg Take 2 [facility] mg tablet 06-11- tablets by ity of 00:00: 00:00 mouth [place] 00 :00 every Medical evening. Branch Alternate take 1mg x3 days, then 2mg x 4 days dofetilide 2022-2022- No [id number] 250ug Take 1 [facility] 250 mcg 06-11 capsule by ity o f capsule 00:00: 04:59 mouth [place] 00 :00 every 12 Medical (twelve) Branch hours for 90 days. dofetilide 2022- No [id number] 250ug Take 1 [facility] 250 mcg 2-27 05-29 capsule by ity o f capsule 00:00: 04:59 mouth [place] 00 :00 every 12 Medical (twelve) Branch hours for 90 days. dofetilide 2022- No [id number] 250ug Take 1 [facility] 250 mcg 2-27 05-29 capsule by ity o f capsule 00:00: 04:59 mouth [place] 00 :00 every 12 Medical (twelve) Branch hours for 90 days. dofetilide 2022- No [id number] 250ug Take 1 [facility] 250 mcg 2-27 05-29 capsule by ity o f capsule 00:00: 04:59 mouth [place] 00 :00 every 12 Medical (twelve) Branch hours for 90 days. dofetilide 2022- No [id number] 250ug Take 1 [facility] 250 mcg 2-27 05-29 capsule by ity o f capsule 00:00: 04:59 mouth [place] 00 :00 every 12 Medical (twelve) Branch hours for 90 days. dofetilide 2022- No [id number] 250ug Take 1 [facility] 250 mcg 2-27 05-29 capsule by ity o f capsule 00:00: 04:59 mouth [place] 00 :00 every 12 Medical (twelve) Branch hours for 90 days. dofetilide 2022- No [id number] 250ug Take 1 [facility] 250 mcg 2-27 05-29 capsule by ity o f capsule 00:00: 04:59 mouth [place] 00 :00 every 12 Medical (twelve) Branch hours for 90 days. dofetilide 2022- No [id number] 250ug Take 1 [facility] 250 mcg 2-27 05-29 capsule by ity o f capsule 00:00: 04:59 mouth [place] 00 :00 every 12 Medical (twelve) Branch hours for 90 days. dofetilide 2022- No [id number] 250ug Take 1 [facility] 250 mcg 2-27 05-29 capsule by ity o f capsule 00:00: 04:59 mouth [place] 00 :00 every 12 Medical (twelve) Branch hours for 90 days. dofetilide 2022- No [id number] 250ug Take 1 [facility] 250 mcg 2-27 05-29 capsule by ity o f capsule 00:00: 04:59 mouth [place] 00 :00 every 12 Medical (twelve) Branch hours for 90 days. dofetilide 2022- No [id number] 250ug Take 1 [facility] 250 mcg 2-27 05-29 capsule by ity o f capsule 00:00: 04:59 mouth [place] 00 :00 every 12 Medical (twelve) Branch hours for 90 days. dofetilide 2022- No [id number] 250ug Take 1 [facility] 250 mcg 2-27 05-29 capsule by ity o f capsule 00:00: 04:59 mouth [place] 00 :00 every 12 Medical (twelve) Branch hours for 90 days. dofetilide 2022- No [id number] 250ug Take 1 [facility] 250 mcg 2-27 05-29 capsule by ity o f capsule 00:00: 04:59 mouth [place] 00 :00 every 12 Medical (twelve) Branch hours for 90 days. dofetilide 2022- No [id number] 250ug Take 1 [facility] 250 mcg 2-27 05-29 capsule by ity o f capsule 00:00: 04:59 mouth [place] 00 :00 every 12 Medical (twelve) Branch hours for 90 days. dofetilide 2022- No [id number] 250ug Take 1 [facility] 250 mcg 2-27 05-29 capsule by ity o f capsule 00:00: 04:59 mouth [place] 00 :00 every 12 Medical (twelve) Branch hours for 90 days. dofetilide 2022- No [id number] 250ug Take 1 [facility] 250 mcg 2-27 05-29 capsule by ity o f capsule 00:00: 04:59 mouth [place] 00 :00 every 12 Medical (twelve) Branch hours for 90 days. dofetilide 2022- No [id number] 250ug Take 1 [facility] 250 mcg 2-27 05-29 capsule by ity o f capsule 00:00: 04:59 mouth [place] 00 :00 every 12 Medical (twelve) Branch hours for 90 days. dofetilide 2022- No [id number] 250ug Take 1 [facility] 250 mcg 2-27 05-29 capsule by ity o f capsule 00:00: 04:59 mouth [place] 00 :00 every 12 Medical (twelve) Branch hours for 90 days. dofetilide 2022- No [id number] 250ug Take 1 [facility] 250 mcg 2-27 05-29 capsule by ity o f capsule 00:00: 04:59 mouth [place] 00 :00 every 12 Medical (twelve) Branch hours for 90 days. dofetilide 2022- No [id number] 250ug Take 1 [facility] 250 mcg 2-27 05-29 capsule by ity o f capsule 00:00: 04:59 mouth [place] 00 :00 every 12 Medical (twelve) Branch hours for 90 days. dofetilide 2022- No [id number] 250ug Take 1 [facility] 250 mcg 2-27 05-29 capsule by ity o f capsule 00:00: 04:59 mouth [place] 00 :00 every 12 Medical (twelve) Branch hours for 90 days. dofetilide 2022- No [id number] 250ug Take 1 [facility] 250 mcg 2-27 05-29 capsule by ity o f capsule 00:00: 04:59 mouth [place] 00 :00 every 12 Medical (twelve) Branch hours for 90 days. dofetilide 2022- No [id number] 250ug Take 1 [facility] 250 mcg 2-27 05-29 capsule by ity o f capsule 00:00: 04:59 mouth [place] 00 :00 every 12 Medical (twelve) Branch hours for 90 days. dofetilide 2022- No [id number] 250ug Take 1 [facility] 250 mcg 2-27 05-29 capsule by ity o f capsule 00:00: 04:59 mouth [place] 00 :00 every 12 Medical (twelve) Branch hours for 90 days. dofetilide 2022- No [id number] 250ug Take 1 [facility] 250 mcg 2-27 05-29 capsule by ity o f capsule 00:00: 04:59 mouth [place] 00 :00 every 12 Medical (twelve) Branch hours for 90 days. dofetilide 2022- No [id number] 250ug Take 1 [facility] 250 mcg 2-27 05-29 capsule by ity o f capsule 00:00: 04:59 mouth [place] 00 :00 every 12 Medical (twelve) Branch hours for 90 days. dofetilide 2022- No [id number] 250ug Take 1 [facility] 250 mcg 2-27 05-29 capsule by ity o f capsule 00:00: 04:59 mouth [place] 00 :00 every 12 Medical (twelve) Branch hours for 90 days. dofetilide 2022- No [id number] 250ug Take 1 [facility] 250 mcg 2-27 05-29 capsule by ity o f capsule 00:00: 04:59 mouth [place] 00 :00 every 12 Medical (twelve) Branch hours for 90 days. dofetilide 2022- No [id number] 250ug Take 1 [facility] 250 mcg 2-27 05-29 capsule by ity o f capsule 00:00: 04:59 mouth [place] 00 :00 every 12 Medical (twelve) Branch hours for 90 days. dofetilide 2022- No [id number] 250ug Take 1 [facility] 250 mcg 2-27 05-29 capsule by ity o f capsule 00:00: 04:59 mouth [place] 00 :00 every 12 Medical (twelve) Branch hours for 90 days. dofetilide 2022- No [id number] 250ug Take 1 [facility] 250 mcg 2-27 05-29 capsule by ity o f capsule 00:00: 04:59 mouth [place] 00 :00 every 12 Medical (twelve) Branch hours for 90 days. dofetilide 2022- No [id number] 250ug Take 1 [facility] 250 mcg 2-27 05-29 capsule by ity o f capsule 00:00: 04:59 mouth [place] 00 :00 every 12 Medical (twelve) Branch hours for 90 days. dofetilide 2022- No [id number] 250ug Take 1 [facility] 250 mcg 2-27 05-29 capsule by ity o f capsule 00:00: 04:59 mouth [place] 00 :00 every 12 Medical (twelve) Branch hours for 90 days. dofetilide 2022- No [id number] 250ug Take 1 [facility] 250 mcg 2-27 05-29 capsule by ity o f capsule 00:00: 04:59 mouth [place] 00 :00 every 12 Medical (twelve) Branch hours for 90 days. dofetilide 2022- No [id number] 250ug Take 1 [facility] 250 mcg 2-27 05-29 capsule by ity o f capsule 00:00: 04:59 mouth [place] 00 :00 every 12 Medical ([facility]) Branch hours for 90 days. enoxaparin 2022-2022- No [id number] 40mg inject 0.4 Univers 40 mg/0.4 2- 03-05 mL under ity o f mL 00:00: 05:59 the skin [place] injection 00 :00 in the [facility] for 5 days. enoxaparin 2022-2022- No [id number] 40mg inject 0.4 [facility] 40 mg/0.4 - 03-05 mL under ity o f mL 00:00: 05:59 the skin [place] injection 00 :00 in the [facility] for 5 days. enoxaparin 2022-2022- No [id number] 40mg inject 0.4 [facility] 40 mg/0.4 - 03-05 mL under ity o f mL 00:00: 05:59 the skin [place] injection 00 :00 in the [facility] for 5 days. enoxaparin 2022-2022- No [id number] 40mg inject 0.4 [facility] 40 mg/0.4 06-11 03-05 mL under ity o f mL 00:00: 05:59 the skin [place] injection 00 :00 in the [facility] for 5 days. enoxaparin 2022-2022- No [id number] 40mg inject 0.4 [facility] 40 mg/0.4 06-11 03-05 mL under ity o f mL 00:00: 05:59 the skin [place] injection 00 :00 in the [facility] for 5 days. enoxaparin 2022-2022- No [id number] 40mg inject 0.4 [facility] 40 mg/0.4 2-27 03-05 mL under ity o f mL 00:00: 05:59 the skin [place] injection 00 :00 in the [facility] for 5 days. enoxaparin 2022-0 2022- No [id number] 40mg inject 0.4 [facility] 40 mg/0.4 2- 03-05 mL under ity o f mL 00:00: 05:59 the skin [place] injection 00 :00 in the [facility] for 5 days. dofetilide 2022- No [id number] 250ug Take 1 [facility] 250 mcg 06-11 capsule by ity o f capsule 00:00: 05:59 mouth [place] 00 :00 every 12 Medical ([facility]) Branch hours for 2 days. warfarin 2 2022- No [id number] 2mg Take 1 [facility] mg tablet 06-11 tablet by ity of 00:00: 05:59 mouth [place] 00 :00 every Medical evening Branch for 2 days. dofetilide 2022- No [id number] 250ug Take 1 [facility] 250 mcg 06-11 capsule by ity o f capsule 00:00: 05:59 mouth [place] 00 :00 every 12 Medical ([facility]) Branch hours for 2 days. warfarin 2 2022- No [id number] 2mg Take 1 [facility] mg tablet 06-11 tablet by ity of 00:00: 05:59 mouth [place] 00 :00 every Medical evening Branch for 2 days. warfarin 2 2022- No [id number] 2mg Take 1 [facility] mg tablet 06-11 tablet by ity of 00:00: 05:59 mouth [place] 00 :00 every Medical evening Branch for 2 days. warfarin 2 2022- No [id number] 2mg Take 1 [facility] mg tablet 06-11 tablet by ity of 00:00: 05:59 mouth [place] 00 :00 every Medical evening Branch for 2 days. warfarin 2 2022- No [id number] 2mg Take 1 [facility] mg tablet 06-11 tablet by ity of 00:00: 05:59 mouth [place] 00 :00 every Medical evening Branch for 2 days. warfarin 2 2022- No [id number] 2mg Take 1 [facility] mg tablet 06-11 tablet by ity of 00:00: 05:59 mouth [place] 00 :00 every Medical evening Branch for 2 days. warfarin 2 2022- No [id number] 2mg Take 1 [facility] mg tablet 06-11 tablet by ity of 00:00: 05:59 mouth [place] 00 :00 every Medical evening Branch for 2 days. enoxaparin 2022- No [id number] 40mg inject 0.4 [facility] 40 mg/0.4 2-27 03-02 mL under ity o f mL 00:00: 05:59 the skin [place] injection 00 :00 in the [facility] for 2 days. enoxaparin No [id number] 40mg inject 0.4 Univers 40 mg/0.4 06-11 mL under ity o f mL 00:00: 05:59 the skin [place] injection 00 :00 in the [facility] for 2 days. dofetilide No [id number] 250ug Take 1 [facility] 250 mcg 06-11 capsule by ity o f capsule 00:00: 05:59 mouth [place] 00 :00 every 12 [facility] hours for 2 days. enoxaparin No [id number] 40mg inject 0.4 Univers 40 mg/0.4 06-11 mL under ity o f mL 00:00: 05:59 the skin [place] injection 00 :00 in the [facility] for 2 days. dofetilide No [id number] 250ug Take 1 [facility] 250 mcg 06-11 capsule by ity o f capsule 00:00: 05:59 mouth [place] 00 :00 every 12 [facility] hours for 2 days. enoxaparin No [id number] 40mg inject 0.4 Univers 40 mg/0.4 06-11 mL under ity o f mL 00:00: 05:59 the skin [place] injection 00 :00 in the [facility] for 2 days. dofetilide No [id number] 250ug Take 1 [facility] 250 mcg 06-11 capsule by ity o f capsule 00:00: 05:59 mouth [place] 00 :00 every 12 [facility] hours for 2 days. enoxaparin 2022- No [id number] 40mg inject 0.4 [facility] 40 mg/0.4 06-11 mL under ity o f mL 00:00: 05:59 the skin [place] injection 00 :00 in the [facility] for 2 days. dofetilide 2022- No [id number] 250ug Take 1 [facility] 250 mcg 2-27 03-02 capsule by ity o f capsule 00:00: 05:59 mouth [place] 00 :00 every 12 Medical (twelve) Branch hours for 2 days. enoxaparin 2022- No [id number] 40mg inject 0.4 [facility] 40 mg/0.4 06-11 mL under ity o f mL 00:00: 05:59 the skin [place] injection 00 :00 in the Medical morning Branch for 2 days. dofetilide 2022- No [id number] 250ug Take 1 [facility] 250 mcg 06-11 capsule by ity o f capsule 00:00: 05:59 mouth [place] 00 :00 every 12 Medical (twelve) Branch hours for 2 days. enoxaparin No [id number] 40mg inject 0.4 Univers 40 mg/0.4 06-11 [...] 1400, Until Discontinu ed, Routine heparin 2022-0 2023- No 80U/kg 3,560 Univer s 1000 2-25 [...] INITIAL INFUSION RATE.&nbsp ; _ &nb sp;FOR [facility], [facility], AND [facility] ONLY &nbs p; - aPTT < 35: [...] , Starting [place] mL vial) 12 on [facility] Medical 06/09/22 at Branch 1027, Until Discontinu ed, Routine
Dosing based on aPTT testing parameters (refer to continuous heparin drip order)
magnesium 2022- No 400mg 400 mg, Uni vers oxide 06-09-25 Oral, ity of (MAG-OX 15:00: 15:14 ONCE, 1 [place] 400) tablet 00 :00 dose, On Medi tyrone 400 mg Sat Branch 06/09/22 at 0900, Routine FENTanyl PF Yes 25ug 25 mcg, Uni vers (SUBLIMAZE -24 Slow IV ity of (PF)) 17:36: Push, [place] injection 01 Q6HPRN, Medical 25 mcg Starting Branch on 06/08/22 at 1136, Until Discontinu ed, Routine, Pain (scale 7-10) magnesium 2022- No 2g 2 g, IV Univ ers sulfate in 06-08-24 Piggyback, it y of water 2 12:45: 13:13 Administer Babak as gram/50 mL 00 :00 over 60 Medica l (4 %) Minutes, Branch infusion 2 ONCE, 1 g dose, On Sat06/08/22 at 0645, Routine dofetilide Yes 250ug 250 mcg, Un chong (TIKOSYN) 06-08 Oral, ity of capsule 250 02:00: Q12H, [place] mcg 00 First dose Medical (after Branch last modificati on) on [facility] 06/07/22 at 2000, Until Discontinu ed, Routine
member service specialist approving Restricted medication : MARIIA CARDONA warfarin 2022- No 1.5mg 1.5 mg, Univ ers (COUMADIN) 06-07 Oral, ity of tablet 1.5 23:00: 13:52 [place]ILY AT [place] mg 00 :32 1700, Medical First dose Branch (after last modificati on) on [facility] 06/07/22 at 1700, Until Discontinu ed, Routine
INR Goal Range: 2-3
IND ICATION (More than one indication for warfarin can be selected): Atrial fibrillati on/flutter pantoprazol Yes 40mg 40 mg, Univ ers e 06-07 Oral, ity of (PROTONIX) 15:00: DAILY, [place] EC tablet 00 First dose Medi tyrone 40 mg on [facility] Branch 06/07/22 at 0900, Until Discontinu ed, Routine ezetimibe Yes 10mg 10 mg, Univer s (ZETIA) 06-07 Oral, ity of tablet 10 15:00: DAILY, [place] mg 00 First dose Medical on [place] Branch 06/07/22 at 0900, Until Discontinu ed, Routine furosemide 0 2022- No 40mg 40 mg, Univ ers (LASIX) 06-07 Oral, ity of tablet 40 15:00: 20:50 DAILY, [place] mg 00 :38 First dose Medical on [facility] Branch 06/07/22 at 0900, Until Discontinu ed, Routine aspirin 2022-0 2022- No 81mg 81 mg, Univers chewable 06-07 Oral, ity of tablet 81 15:00: 15:25 DAILY, [place] mg 00 :24 First dose Medical on [facility] Branch 06/07/22 at 0900, Until Discontinu ed, Routine HYDROcodone Yes 1{tbl} 1 tablet, Univers -acetaminop 06-07 Oral, ity of hen (NORCO) 14:58: Q6HPRN, Babak as 10-325 mg 30 Starting Medica l tablet 1 on [facility] Branch tablet 06/07/22 at 0858, Until Discontinu ed, Routine, Pain (scale 7-10), Pain (scale 4-6) gabapentin 2022- No 300mg 300 mg, Un [facility] (NEURONTIN) 06-07 Oral, ity of capsule 300 07:45: 07:14 ONCE, 1 [place] mg 00 :00 dose, On Medical [facility] Branch 06/07/22 at 0145, Routine KCL 2022- No 20meq 20 mEq, Univers (KLOR-CON 06-07 Oral, ity of M20) tablet 05:00: 06:48 ONCE, 1 [place] 20 mEq 00 :00 dose, On [facility] 06/06/22 at 2315, Routine magnesium 2022- No 2g 2 g, IV Univ ers sulfate in 06-07 Piggyback, it y of water 2 05:00: 08:15 Administer Babak as gram/50 mL 00 :00 over 60 Medica l (4 %) Minutes, Branch infusion 2 ONCE, 1 g dose, On [facility] 06/06/22 at 2315, Routine atorvastati Yes 80mg 80 mg, Univ ers n (LIPITOR) 06-07 Oral, QHS, it y of tablet 80 03:00: First dose [place] mg 00 on [facility] Medical 06/06/22 at Branch 2100, Until Discontinu ed, Routine dofetilide 2022- No 125ug 125 mcg, U nivers (TIKOSYN) 06-07 Oral, ity of capsule 125 02:00: 16:35 Q12H, [place] m[place] 00 :11 First dose Medical on [facility] 06/06/22 at 2000, Until Discontinu ed, Routine
member service specialist approving Restricted medication : MARIIA CARDONA lidocaine 2023-0 Yes 1{patch 1 Patch, U nivers (LIDODERM) [...] mg per 48 Medical tablet Branch furosemide 2022-0 2024- No 20mg Take 1 Univ ers 20 mg 2-13 -15 tablet by ity of tablet 00:00: 05:59 mouth. [place] 00 :00 Medical Branch furosemide 202-0 2024- No 20mg Take 1 Univ ers 20 mg 2-13 -15 tablet by ity of tablet 00:00: 05:59 mouth. [place] 00 :00 Medical Branch furosemide 202-0 2024- No 20mg Take 1 Univ ers 20 mg 2-13 -15 tablet by ity of tablet 00:00: 05:59 mouth. [place] 00 :00 Medical Branch furosemide 2022-0 2024- No 20mg Take 1 Univ ers 20 mg 2-13 -15 tablet by ity of tablet 00:00: 05:59 mouth. [place] 00 :00 Medical Branch furosemide 2022-0 2024- [...] 00 :00 by mouth Center daily. furosemide 202-0 2024- No 20mg QD Take 1 [facility] :[facility] by mouth Center daily. furosemide 2022-2022- No 20mg Take 1 Univ ers 20 mg 2-13 01-11 tablet by ity of tablet 00:00: 00:00 mouth. [place] 00 :00 [facility] warfarin 2023-0 Yes 1mg QD Take [address] [facility] (COUMADIN, 2-12 by mouth [facility]) 1 16:44: daily. Medi tyrone MG tablet 11 [place] warfarin 2023-0 Yes 1mg QD Take [address] [facility] (COUMADIN, 2-12 by mouth [facility]) 1 16:44: daily. Medi tyrone MG tablet 11 [place] warfarin 2023-0 Yes 1mg QD Take [address] [facility] (COUMADIN, 2-12 by mouth [facility]) 1 16:44: daily. Medi tyrone MG tablet 11 [place] warfarin 2023-0 Yes 1mg QD Take [address] [facility] (COUMADIN, 2-12 by mouth [facility]) 1 16:44: daily. Medi tyrone MG tablet 11 [place] warfarin 2023-0 Yes 1mg QD Take [address] [facility] (COUMADIN, 2-12 by mouth [facility]) 1 16:44: daily. Medi tyrone MG tablet 11 [place] warfarin 2023-0 Yes 1mg QD Take [address] [facility] (COUMADIN, 2-12 by mouth [facility]) 1 16:44: daily. Medi tyrone MG tablet 11 [place] warfarin 2023-0 Yes 1mg QD Take [address] [facility] (COUMADIN, 2-12 by mouth [facility]) 1 16:44: daily. Medi tyrone MG tablet 11 [place] warfarin 2023-0 Yes 1mg QD Take [address] [facility] (COUMADIN, 2-12 by mouth [facility]) 1 16:44: daily. Medi tyrone MG tablet 11 [place] warfarin 2023-0 Yes 1mg QD Take [address] [facility] (COUMADIN, 2-12 by mouth [facility]) 1 16:44: daily. Medi tyrone MG tablet 11 [place] warfarin 2023-0 Yes 1mg QD Take [address] [facility] (COUMADIN, 2-12 by [facility] 1 16:44: daily. Medi tyrone MG tablet 11 [place] warfarin 2023-0 Yes 1mg QD Take [address] [facility] (COUMADIN, 2-12 by [facility]) 1 16:44: daily. Medi tyrone MG tablet 11 [place] warfarin 2023-0 Yes 1mg QD Take 1 [...] Q.5D Take 0.[address] [facility] tartrate 2-12 [facility]:00: 23:59 (12.5 mg [...] 13:52: daily. Medi tyrone MG tablet 50 [place] warfarin 0 Yes 1mg QD Take [address] [facility] (COUMADIN, 2-04 by mouth [facility]) 1 13:52: daily. Medi tyrone MG tablet 50 [place] warfarin 0 Yes 1mg QD Take [address] [facility] (COUMADIN, 2-04 by [facility]) 1 13:52: daily. Medi tyrone MG tablet 50 [place] warfarin 2022-0 Yes 1mg QD Take [address] [facility] (COUMADIN, 2-04 by [facility]) 1 13:52: daily. [facility]i tyrone MG tablet 50 [facility] al[facility]ronate 0 Yes [facility] 70 mg - ity of tablet 00:00: [place] [facility] zolpidem 10 Yes 1 tablet [facility] mg tablet 1-26 at bedtime ity of 00:00: as needed [facility] alendronate 2022-0 Yes [facility] 70 mg 1-26 ity of tablet 00:00: [place] [facility] zolpidem 10 2022-0 Yes 1 tablet [facility] mg tablet 1-26 at bedtime ity of 00:00: as needed [facility] alendronate 2022-0 Yes [facility] 70 mg 1-26 ity of tablet 00:00: [place] [facility] zolpidem 10 2022-0 Yes 1 tablet [facility] mg tablet 1-26 at bedtime ity of 00:00: as needed [place] [facility] alendronate 2022-0 Yes [facility] 70 mg 1-26 ity of tablet 00:00: [place] [facility] zolpidem 10 2022-0 Yes 1 tablet [facility] mg tablet 1-26 at bedtime ity of 00:00: as needed [facility] alendronate 2022-0 Yes [facility] 70 mg 1-26 ity of tablet 00:00: [place] [facility] zolpidem 10 2022-0 Yes 1 tablet [facility] mg tablet 1-26 at bedtime ity of 00:00: as needed [place] [facility] alendronate 2022-0 Yes [facility] 70 mg 1-26 ity of tablet 00:00: [place] [facility] zolpidem 10 2022-0 Yes 1 tablet [facility] mg tablet 1-26 at bedtime ity of 00:00: as needed [facility] alendronate 2022-0 Yes [facility] 70 mg 1-26 ity of tablet 00:00: [place] [facility] zolpidem 10 2022-0 Yes 1 tablet [facility] mg tablet 1-26 at bedtime ity of 00:00: as needed [facility] alendronate 2022-0 Yes [facility] 70 mg 1-26 ity of tablet 00:00: [place] [id number] [facility] zolpidem 10 2022-0 Yes 1 tablet [facility] mg tablet 1-26 at bedtime ity of 00:00: as needed [place] [facility] alendronate 2022-0 Yes [facility] 70 mg 1-26 ity of tablet 00:00: [place] [id number] [facility] zolpidem 10 2022-0 Yes 1 tablet [facility] mg tablet 1-26 at bedtime ity of 00:00: as needed [place] [facility] alendronate 2022-0 Yes [facility] 70 mg 1-26 ity of tablet 00:00: [place] [facility] zolpidem 10 2022-0 Yes 1 tablet [facility] mg tablet 1-26 at bedtime ity of 00:00: as needed [place] [facility] alendronate 2022-0 Yes [facility] 70 mg 1-26 ity of tablet 00:00: [place] [facility] zolpidem 10 2022-0 Yes 1 tablet [facility] mg tablet 1-26 at bedtime ity of 00:00: as needed [place] [facility] alendronate 2022-0 Yes [facility] 70 mg 1-26 ity of tablet 00:00: [place] [id number] [facility] zolpidem 10 2022-0 Yes 1 tablet [facility] mg tablet 1-26 at bedtime ity of 00:00: as needed [place] [facility] alendronate 2022-0 Yes [facility] 70 mg 1-26 ity of tablet 00:00: [place] [address] [facility] zolpidem 10 2022-0 Yes 1 tablet [facility] mg tablet 1-26 at bedtime ity of 00:00: as needed [place] [facility] alendronate 2022-0 Yes [facility] 70 mg 1-26 ity of tablet 00:00: [place] [address] [facility] zolpidem 10 2022-0 Yes 1 tablet [facility] mg tablet 1-26 at bedtime ity of 00:00: as needed [place] [facility] alendronate 2022-0 Yes [facility] 70 mg 1-26 ity of tablet 00:00: [place] [address] [facility] zolpidem 10 2022-0 Yes 1 tablet [facility] mg tablet 1-26 at bedtime ity of 00:00: as needed [place] [facility] alendronate 2022-0 Yes [facility] 70 mg 1-26 ity of tablet 00:00: [place] [address] [facility] zolpidem 10 2022-0 Yes 1 tablet [facility] mg tablet 1-26 at bedtime ity of 00:00: as needed [place] [facility] alendronate 2022-0 Yes [facility] 70 mg 1-26 ity of tablet 00:00: [place] [address] [facility] zolpidem 10 2022-0 Yes 1 tablet [facility] mg tablet 1-26 at bedtime ity of 00:00: as needed [facility] alendronate 2022-0 Yes [facility] 70 mg 1-26 ity of tablet 00:00: [place] [facility] zolpidem 10 2022-0 Yes 1 tablet [facility] mg tablet 1-26 at bedtime ity of 00:00: as needed [place] [facility] alendronate 2022-0 Yes [facility] 70 mg 1-26 ity of tablet 00:00: [place] [address] [facility] zolpidem 10 2022-0 Yes 1 tablet [facility] mg tablet 1-26 at bedtime ity of 00:00: as needed [place] [facility] alendronate 2022-0 Yes [facility] 70 mg 1-26 ity of tablet 00:00: [place] [address] [facility] zolpidem 10 2022-0 Yes 1 tablet [facility] mg tablet 1-26 at bedtime ity of 00:00: as needed [place] [facility] alendronate 2022-0 Yes [facility] 70 mg 1-26 ity of tablet 00:00: [place] [address] [facility] zolpidem 10 2022-0 Yes 1 tablet [facility] mg tablet 1-26 at bedtime ity of 00:00: as needed [place] [facility] alendronate 2022-0 Yes [facility] 70 mg 1-26 ity of tablet 00:00: [place] [facility] zolpidem 10 2022-0 Yes 1 tablet [facility] mg tablet 1-26 at bedtime ity of 00:00: as needed [place] [facility] alendronate 2022-0 Yes [facility] 70 mg 1-26 ity of tablet 00:00: [place] [address] [facility] zolpidem 10 2022-0 Yes 1 tablet [facility] mg tablet 1-26 at bedtime ity of 00:00: as needed [place] [facility] alendronate 2022-0 Yes [facility] 70 mg 1-26 ity of tablet 00:00: [place] [address] [facility] zolpidem 10 2022-0 Yes 1 tablet [facility] mg tablet 1-26 at bedtime ity of 00:00: as needed [place] [facility] alendronate 2022-0 Yes [facility] 70 mg 1-26 ity of tablet 00:00: [facility] zolpidem 10 0 Yes 1 tablet [facility] mg tablet 1-26 at bedtime ity of 00:00: as needed [facility] alendronate 0 Yes [facility] 70 mg 1-26 ity of tablet 00:00: [place] [facility] zolpidem 10 2022-0 Yes 1 tablet [facility] mg tablet 1-26 at bedtime ity of 00:00: as needed [facility] alendronate 0 Yes [facility] 70 mg 1-26 ity of tablet 00:00: [place] [facility] zolpidem 10 0 Yes 1 tablet [facility] mg tablet 1-26 at bedtime ity of 00:00: as needed [facility] alendronate 0 Yes [facility] 70 mg 1-26 ity of tablet 00:00: [place] [facility] zolpidem 10 0 Yes 1 tablet [facility] mg tablet 1-26 at bedtime ity of 00:00: as needed [facility] alendronate 0 Yes [facility] 70 mg 1-26 ity of tablet 00:00: [place] [facility] zolpidem 10 2022-0 Yes 1 tablet [facility] mg tablet 1-26 at bedtime ity of 00:00: as needed [facility] alendronate 0 Yes [facility] 70 mg 1-26 ity of tablet 00:00: [place] [facility] zolpidem 10 2022-0 Yes 1 tablet [facility] mg tablet 1-26 at bedtime ity of 00:00: as needed [facility] alendronate 2022-0 Yes [facility] 70 mg 1-26 ity of tablet 00:00: [place] [facility] zolpidem 10 2022-0 Yes 1 tablet [facility] mg tablet 1-26 at bedtime ity of 00:00: as needed [facility] alendronate 0 Yes [facility] 70 mg 1-26 ity of tablet 00:00: [place] [facility] zolpidem 10 2022-0 Yes 1 tablet [facility] mg tablet 1-26 at bedtime ity of 00:00: as needed [facility] alendronate 0 Yes [facility] 70 mg 1-26 ity of tablet 00:00: [place] [facility] zolpidem 10 2022-0 Yes 1 tablet [facility] mg tablet 1-26 at bedtime ity of 00:00: as needed [facility] alendronate 2022-0 Yes [facility] 70 mg 1-26 ity of tablet 00:00: [place] [facility] zolpidem 10 2022-0 Yes 1 tablet [facility] mg tablet 1-26 at bedtime ity of 00:00: as needed [place] [facility] alendronate 2022-0 Yes [facility] 70 mg 1-26 ity of tablet 00:00: [place] [facility] zolpidem 10 2022-0 Yes 1 tablet [facility] mg tablet 1-26 at bedtime ity of 00:00: as needed [place] [facility] alendronate 2022-0 Yes [facility] 70 mg 1-26 ity of tablet 00:00: [place] [facility] zolpidem 10 2022-0 Yes 1 tablet [facility] mg tablet 1-26 at bedtime ity of 00:00: as needed [place] [facility] alendronate 2022-0 Yes [facility] 70 mg 1-26 ity of tablet 00:00: [place] [address] [facility] zolpidem 10 2022-0 Yes 1 tablet [facility] mg tablet 1-26 at bedtime ity of 00:00: as needed [place] [address] [facility] alendronate 2022-0 Yes [facility] 70 mg 1-26 ity of tablet 00:00: [place] [facility] zolpidem 10 2022-0 Yes 1 tablet [facility] mg tablet 1-26 at bedtime ity of 00:00: as needed [place] [facility] alendronate 2022-0 Yes [facility] 70 mg 1-26 ity of tablet 00:00: [place] [address] [facility] zolpidem 10 2022-0 Yes 1 tablet [facility] mg tablet 1-26 at bedtime ity of 00:00: as needed [place] [address] [facility] alendronate 2022-0 Yes [facility] 70 mg 1-26 ity of tablet 00:00: [place] [address] [facility] zolpidem 10 2022-0 Yes 1 [...] 70 mg 1-26 ity of tablet 00:00: [place] [facility] zolpidem 10 2022-0 Yes 1 tablet [facility] mg tablet 1-26 at bedtime ity of 00:00: as needed [place] [facility] alendronate 2022-0 Yes [facility] 70 mg 1-26 ity of tablet 00:00: [place] [facility] zolpidem 10 2022-0 Yes 1 tablet [facility] mg tablet 1-26 at bedtime ity of 00:00: as needed [place] [facility] alendronate 2022-0 Yes [facility] 70 mg 1-26 ity of tablet 00:00: [place] [facility] zolpidem 10 2022-0 Yes 1 tablet [facility] mg tablet 1-26 at bedtime ity of 00:00: as needed [place] [facility] alendronate 2022-0 Yes [facility] 70 mg 1-26 ity of tablet 00:00: [place] [facility] zolpidem 10 2022-0 Yes 1 tablet [facility] mg tablet 1-26 at bedtime ity of 00:00: as needed [facility] alendronate 2022-0 Yes [facility] 70 mg 1-26 ity of tablet 00:00: [place] [facility] zolpidem 10 2022-0 Yes 1 tablet [facility] mg tablet 1-26 at bedtime ity of 00:00: as needed [place] [facility] alendronate 2022-0 Yes [facility] 70 mg 1-26 ity of tablet 00:00: [place] [facility] zolpidem 10 2022-0 Yes 1 tablet [facility] mg tablet 1-26 at bedtime ity of 00:00: as needed [place] [facility] alendronate 2022-0 Yes [facility] 70 mg 1-26 ity of tablet 00:00: [place] [facility] zolpidem 10 2023-0 Yes 1 tablet [facility] mg tablet 1-26 at bedtime ity of 00:00: as needed [facility] alendronate 2022-0 Yes [facility] 70 mg 1-26 ity of tablet 00:00: [place] [facility] zolpidem 10 2022-0 Yes 1 tablet [facility] mg tablet 1-26 at bedtime ity of 00:00: as needed [facility] alendronate 2022-0 Yes [facility] 70 mg 1-26 ity of tablet 00:00: [place] [facility] zolpidem 10 0 Yes 1 tablet [facility] mg tablet 1-26 at bedtime ity of 00:00: as needed [place] [facility] alendronate 2022-0 Yes [facility] 70 mg 1-26 ity of tablet 00:00: [place] [address] [facility] zolpidem 10 0 Yes 1 tablet [facility] mg tablet 1-26 at bedtime ity of 00:00: as needed [place] [facility] alendronate 2022-0 Yes [facility] 70 mg 1-26 ity of tablet 00:00: [place] [address] [facility] zolpidem 10 0 Yes 1 tablet [facility] mg tablet 1-26 at bedtime ity of 00:00: as needed [place] [facility] alendronate 2022-0 Yes [facility] 70 mg 1-26 ity of tablet 00:00: [place] [address] [facility] zolpidem 10 2022-0 Yes 1 tablet [facility] mg tablet 1-26 at bedtime ity of 00:00: as needed [facility] alendronate 2022-0 Yes [facility] 70 mg 1-26 ity of tablet 00:00: [place] [facility] zolpidem 10 2022-0 Yes 1 tablet [facility] mg tablet 1-26 at bedtime ity of 00:00: as needed [place] [facility] alendronate 2022-0 Yes [facility] 70 mg 1-26 ity of tablet 00:00: [place] [address] [facility] zolpidem 10 2022-0 Yes 1 tablet [facility] mg tablet 1-26 at bedtime ity of 00:00: as needed [place] [facility] alendronate 2022-0 Yes [facility] 70 mg 1-26 ity of tablet 00:00: [place] [address] [facility] zolpidem 10 2022-0 Yes 1 tablet [facility] mg tablet 1-26 at bedtime ity of 00:00: as needed [place] [facility] alendronate 2022-0 Yes [facility] 70 mg 1-26 ity of tablet 00:00: [place] [facility] zolpidem 10 2022-0 Yes 1 tablet [facility] mg tablet 1-26 at bedtime ity of 00:00: as needed [place] [facility] alendronate 2022-0 Yes [facility] 70 mg 1-26 ity of tablet 00:00: [place] [facility] zolpidem 10 2022-0 Yes 1 tablet [facility] mg tablet 1-26 at bedtime ity of 00:00: as needed [place] [facility] alendronate 2022-0 Yes [facility] 70 mg 1-26 ity of tablet 00:00: [place] [address] [facility] zolpidem 10 2022-0 Yes 1 tablet [facility] mg tablet 1-26 at bedtime ity of 00:00: as needed [place] [facility] alendronate 2022-0 Yes [facility] 70 mg 1-26 ity of tablet 00:00: [place] [address] [facility] zolpidem 10 2022-0 Yes 1 tablet [facility] mg tablet 1-26 at bedtime ity of 00:00: as needed [place] [facility] alendronate 2022-0 Yes [facility] 70 mg 1-26 ity of tablet 00:00: [place] [address] [facility] zolpidem 10 2022-0 Yes 1 tablet [facility] mg tablet 1-26 at bedtime ity of 00:00: as needed [place] [facility] alendronate 2022-0 Yes [facility] 70 mg 1-26 ity of tablet 00:00: [place] [address] [facility] zolpidem 10 2022-0 Yes 1 tablet [facility] mg tablet 1-26 at bedtime ity of 00:00: as needed [place] [facility] alendronate 2022-0 Yes [facility] 70 mg 1-26 ity of tablet 00:00: [place] [address] [facility] zolpidem 10 2022-0 Yes 1 tablet [facility] mg tablet 1-26 at bedtime ity of 00:00: as needed [place] [facility] alendronate 2022-0 Yes [facility] 70 mg 1-26 ity of tablet 00:00: [place] [facility] zolpidem 10 2022-0 Yes 1 tablet [facility] mg tablet 1-26 at bedtime ity of 00:00: as needed [facility] alendronate 2022-0 Yes [facility] 70 mg 1-26 ity of tablet 00:00: [place] [facility] zolpidem 10 2022-0 Yes 1 tablet [facility] mg tablet 1-26 at bedtime ity of 00:00: as needed [facility] alendronate 2022-0 Yes [facility] 70 mg 1-26 ity of tablet 00:00: [place] [facility] zolpidem 10 2022-0 Yes 1 tablet [facility] mg tablet 1-26 at bedtime ity of 00:00: as needed [place] [facility] alendronate 2022-0 Yes [facility] 70 mg 1-26 ity of tablet 00:00: [place] [facility] zolpidem 10 2022-0 Yes 1 tablet [facility] mg tablet 1-26 at bedtime ity of 00:00: as needed [facility] alendronate 2022-0 Yes [facility] 70 mg 1-26 ity of tablet 00:00: [place] [facility] zolpidem 10 2022-0 Yes 1 tablet [facility] mg tablet 1-26 at bedtime ity of 00:00: as needed [facility] alendronate 2022-0 Yes [facility] 70 mg 1-26 ity of tablet 00:00: [place] [facility] zolpidem 10 2022-0 Yes 1 tablet [facility] mg tablet 1-26 at bedtime ity of 00:00: as needed [facility] alendronate 2022-0 Yes [facility] 70 mg 1-26 ity of tablet 00:00: [place] [facility] zolpidem 10 2022-0 Yes 1 tablet [facility] mg tablet 1-26 at bedtime ity of 00:00: as needed [facility] alendronate 2022-0 Yes [facility] 70 mg 1-26 ity of tablet 00:00: [place] [facility] zolpidem 10 2022-0 Yes 1 tablet [facility] mg tablet 1-26 at bedtime ity of 00:00: as needed [place] [facility] alendronate 0 Yes [facility] 70 mg 1-26 ity of tablet 00:00: [place] [facility] zolpidem 10 2022-0 Yes 1 tablet [facility] mg tablet 1-26 at bedtime ity of 00:00: as needed [facility] alendronate 0 Yes [facility] 70 mg 1-26 ity of tablet 00:00: [place] [facility] zolpidem 10 2022-0 Yes 1 tablet [facility] mg tablet 1-26 at bedtime ity of 00:00: as needed [place] [facility] alendronate 2022-0 Yes [facility] 70 mg 1-26 ity of tablet 00:00: [place] [address] [facility] zolpidem 10 2022-0 Yes 1 tablet [facility] mg tablet 1-26 at bedtime ity of 00:00: as needed [place] [address] [facility] alendronate 2022-0 Yes [facility] 70 mg 1-26 ity of tablet 00:00: [place] [address] [facility] zolpidem 10 2022-0 Yes 1 tablet [facility] mg tablet 1-26 at bedtime ity of 00:00: as needed [place] [address] [facility] alendronate 2022-0 Yes [facility] 70 mg 1-26 ity of tablet 00:00: [place] [address] [facility] zolpidem 10 2022-0 Yes 1 tablet [facility] mg tablet 1-26 at bedtime ity of 00:00: as needed [place] [address] [facility] alendronate 2022-0 Yes [facility] 70 mg 1-26 ity of tablet 00:00: [place] [facility] zolpidem 10 2022-0 Yes 1 tablet [facility] mg tablet 1-26 at bedtime ity of 00:00: as needed [place] [address] [facility] alendronate 2022-0 Yes [facility] 70 mg 1-26 ity of tablet 00:00: [place] [address] [facility] zolpidem 10 2022-0 Yes 1 tablet [facility] mg tablet 1-26 at bedtime ity of 00:00: as needed [place] [address] [facility] alendronate 2022-0 Yes [facility] 70 mg 1-26 ity of tablet 00:00: [place] [address] [facility] zolpidem 10 2022-0 Yes 1 tablet [facility] mg tablet 1-26 at bedtime ity of 00:00: as needed [place] [facility] alendronate 2022-0 Yes [facility] 70 mg 1-26 ity of tablet 00:00: [place] [facility] zolpidem 10 2022-0 Yes 1 tablet [facility] mg tablet 1-26 at bedtime ity of 00:00: as needed [place] [facility] alendronate 2022-0 Yes [facility] 70 mg 1-26 ity of tablet 00:00: [place] [facility] zolpidem 10 2022-0 Yes 1 tablet [facility] mg tablet 1-26 at bedtime ity of 00:00: as needed [place] [facility] alendronate 2022-0 Yes [facility] 70 mg 1-26 ity of tablet 00:00: [place] [facility] zolpidem 10 2022-0 Yes 1 tablet [facility] mg tablet 1-26 at bedtime ity of 00:00: as needed [place] [facility] alendronate 2022-0 Yes [facility] 70 mg 1-26 ity of tablet 00:00: [place] [address] [facility] zolpidem 10 2022-0 Yes 1 tablet [facility] mg tablet 1-26 at bedtime ity of 00:00: as needed [place] [address] [facility] alendronate 2022-0 Yes [facility] 70 mg 1-26 ity of tablet 00:00: [place] [address] [facility] zolpidem 10 2022-0 Yes 1 tablet [facility] mg tablet 1-26 at bedtime ity of 00:00: as needed [place] [facility] alendronate 2022-0 Yes [facility] 70 mg 1-26 ity of tablet 00:00: [place] [facility] zolpidem 10 2022-0 Yes 1 tablet [facility] mg tablet 1-26 at bedtime ity of 00:00: as needed [place] [facility] alendronate 2022-0 Yes [facility] 70 mg 1-26 ity of tablet 00:00: [place] [address] [facility] zolpidem 10 2022-0 Yes 1 tablet [facility] mg tablet 1-26 at bedtime ity of 00:00: as needed [place] [address] [facility] alendronate 2022-0 Yes [facility] 70 mg 1-26 ity of tablet 00:00: [place] [address] [facility] zolpidem 10 2022-0 Yes 1 tablet [facility] mg tablet 1-26 at bedtime ity of 00:00: as needed [place] [facility] alendronate 2022-0 Yes Un[facility] [...] at bedtime ity of 00:00: as needed [place] [facility] zolpidem 10 0 Yes 1 tablet [facility] mg tablet 1-26 at bedtime ity of 00:00: as needed [place] [facility] zolpidem 10 0 Yes 1 tablet [facility] mg tablet 1-26 at bedtime ity of 00:00: as needed [place] [facility] zolpidem 10 0 Yes 1 tablet [facility] mg tablet 1-26 at bedtime ity of 00:00: as needed [place] [facility] zolpidem 10 0 Yes 1 tablet [facility] mg tablet 1-26 at bedtime ity of 00:00: as needed [facility] zolpidem 10 2022-0 Yes 1 tablet [facility] mg tablet 1-26 at bedtime ity of 00:00: as needed [place] [facility] zolpidem 10 2022-0 Yes 1 tablet [facility] mg tablet 1-26 at bedtime ity of 00:00: as needed [place] [facility] zolpidem 10 2022-0 Yes 1 tablet [facility] mg tablet 1-26 at bedtime ity of 00:00: as needed [place] [facility] zolpidem 10 2022-0 Yes 1 tablet [facility] mg tablet 1-26 at bedtime ity of 00:00: as needed [facility] zolpidem 10 2022-0 Yes 1 tablet [facility] mg tablet 1-26 at bedtime ity of 00:00: as needed [facility] zolpidem 10 Yes 1 tablet [facility] mg tablet - at bedtime ity of 00:00: as needed [facility] zolpidem 10 Yes 1 tablet [facility] mg tablet -26 at bedtime ity of 00:00: as needed [facility] zolpidem 10 Yes 1 tablet [facility] mg tablet - at bedtime ity of 00:00: as needed [place] [facility] zolpidem 10 Yes 1 tablet [facility] mg tablet - at bedtime ity of 00:00: as needed [place] [facility] zolpidem 10 Yes 1 tablet [facility] mg tablet 05-10 at bedtime ity of 00:00: as needed [place] [facility] alendronate 2022- No [facility] 70 mg 05-10 ity of tablet 00:00: 00:00 [place] 00 :00 [facility] zolpidem 10 2022- No 10mg Take 1 [facility] vers mg tablet 05-10 tablet by ity of 00:00: 00:00 mouth. [place] 00 :00 [facility] metoprolol 2022- No [id number] 25mg Take 1 [facility] succinate 05-10 tablet by ity of XL (TOPROL 00:00: 04:59 mouth in [place] XL) 25 mg 00 :00 the Medical 24 hr morning Branch tablet for 90 days. metoprolol 2022- No [id number] 25mg Take 1 [facility] succinate 05-10 tablet by ity of XL (TOPROL 00:00: 04:59 mouth in [place] XL) 25 mg 00 :00 the [facility] 24 hr morning Branch tablet for 90 days. metoprolol 2022- No [id number] 25mg Take 1 [facility] succinate 05-10 tablet by [facility]y of XL (TOPROL 00:00: 04:59 mouth in [place] XL) 25 mg 00 :00 the [facility] 24 hr morning Branch tablet for 90 days. metoprolol 2022- No [id number] 25mg Take 1 [facility] succinate 1-26 04-27 tablet by ity of XL (TOPROL 00:00: 04:59 mouth in [place] XL) 25 mg 00 :00 the [facility] 24 hr morning Branch tablet for 90 days. metoprolol 2022- No [id number] 25mg Take 1 [facility] succinate 1-26 04-27 tablet by ity of XL (TOPROL 00:00: 04:59 mouth in [place] XL) 25 mg 00 :00 the Medical 24 hr morning Branch tablet for 90 days. metoprolol 2022- No [id number] 25mg Take 1 [facility] succinate 1-26 04-27 tablet by ity of XL (TOPROL 00:00: 04:59 mouth in [place] XL) 25 mg 00 :00 the Medical 24 hr morning Branch tablet for 90 days. metoprolol 2022- No [id number] 25mg Take 1 [facility] succinate 1-26 02-27 tablet by ity of XL (TOPROL 00:00: 00:00 mouth in [place] XL) 25 mg 00 :00 the Medical 24 hr morning Branch tablet for 90 days. metoprolol 2022- No [id number] 25mg Take 1 [facility] succinate 1-26 02-27 tablet by [facility]y of XL (TOPROL 00:00: 00:00 mouth in [place] XL) 25 mg 00 :00 the Medical 24 hr morning Branch tablet for 90 days. metoprolol 2022- No [id number] 25mg Take 1 [facility] succinate 1-26 02-27 tablet by ity of XL (TOPROL 00:00: 00:00 mouth in [place] XL) 25 mg 00 :00 the Medical 24 hr morning Branch tablet for 90 days. metoprolol 2022- No [id number] 25mg Take 1 [facility] succinate 1-26 02-27 tablet by ity of XL (TOPROL 00:00: 00:00 mouth in [place] XL) 25 mg 00 :00 the Medical 24 hr morning Branch tablet for 90 days. metoprolol 2022- No [id number] 25mg Take 1 [facility] succinate 1-26 02-27 tablet by ity of XL (TOPROL 00:00: 00:00 mouth in [place] XL) 25 mg 00 :00 the [facility] 24 hr morning Branch tablet for 90 days. Diclofenac 0 Yes [facility] Sodium 1 % 1-25 ity of gel 00:00: [place] 00 [facility] Diclofenac 3-0 3- No [facility] Sodium 1 % 1-25 -27 ity of gel 00:00: 00:00 [place] 00 :00 [facility] Diclofenac 3-0 2023- No [facility] Sodium 1 % 1-25 -27 ity of gel 00:00: 00:00 [place] 00 :00 [facility] Diclofenac 3-0 2023- No [facility] Sodium 1 % 1-25 -27 ity of gel 00:00: 00:00 [place] 00 :00 [facility] Diclofenac 3-0 3- No [facility] Sodium 1 % 1-25 -27 ity of gel 00:00: 00:00 [place] 00 :00 [facility] Diclofenac 3-0 3- No [facility] Sodium 1 % 1-25 -27 ity of gel 00:00: 00:00 [place] 00 :00 [facility] ezetimibe 2021- Yes 10mg Take 1 [facility] s (ZETIA) 10 2-19 tablet by [facility] mg tablet 00:00: [place] 00 the [facility] morning. Branch metoprolol 2021-04 Yes [id number] 25mg Take 1 [facility] tartrate 25 2-19 tablet by [facility] mg tablet 00:00: [place] [facility] morning [facility] and 1 tablet in the evening. ezetimibe 2021-04 Yes 10mg Take 1 [facility] (ZETIA) 10 2-19 tablet by [facility] mg tablet 00:00: [place] the [facility] morning. Branch metoprolol 2021-04 Yes [id number] 25mg Take 1 [facility] tartrate 25 2-19 tablet by [facility] mg tablet 00:00: [place] the [facility] morning Branch and 1 tablet in the evening. ezetimibe 2021-04 Yes 10mg Take 1 [facility] (ZETIA) 10 2-19 tablet by [facility] mg tablet 00:00: [place] 00 the [facility] morning. Branch metoprolol 2021-04 Yes [id number] 25mg Take 1 [facility] tartrate 25 2-19 tablet by [facility] mg tablet 00:00: [place] the [facility] morning Branch and 1 tablet in the evening. ezetimibe 2021-04 Yes 10mg Take 1 [facility] (ZETIA) 10 2-19 tablet by [facility] mg tablet 00:00: [place] the [facility] morning. Branch metoprolol 2021-04 Yes [id number] 25mg Take 1 [facility] nivers tartrate 25 2-19 tablet by ity of mg tablet [place]: [place] 00 the Medical morning Branch and 1 tablet in the evening. ezetimibe 2021-04 Yes 10mg Take 1 [facility] (ZETIA) 10 2-19 tablet by [facility] tablet 00:[facility]: [place] 00 the Medical morning. Branch metoprolol 2021-04 Yes [id number] 25mg Take 1 [facility] tartrate 25 2-19 tablet by [facility] tablet 00:00: mouth [place] 00 the Medical morning Branch and 1 tablet in the evening. ezetimibe 2021-04 Yes 10mg Take 1 [facility] (ZETIA) 10 2-19 tablet by [facility] tablet 00:00: [place] 00 the Medical morning. Branch metoprolol 2021-04 Yes [id number] 25mg Take 1 [facility] tartrate 25 2-19 tablet by [facility] tablet 00:00: mouth [place] 00 the Medical morning Branch and 1 tablet in the evening. ezetimibe 2021-04 Yes 10mg Take 1 [facility] (ZETIA) 10 2-19 tablet by [facility] tablet 00:00: [place] 00 the Medical morning. Branch metoprolol 2021-04 Yes [id number] 25mg Take 1 [facility] tartrate 25 [...] 10mg Take 1 [facility] 10 mg 06-03 tablet by [facility] tablet 00:00: 00:00 mouth [place] 00 :00 every Medical morning. Branch ezetimibe 2021-04- No 10mg Take 1 [facility] (ZETIA) 10 06-03 tablet by [facility] mg tablet 00:00: 00:00 mouth in [place] 00 :00 the Medical morning. Branch metoprolol 2021-04- No [id number] 25mg Take 1 [facility] tartrate 25 06-03 tablet by [facility] mg tablet 00:00: 00:00 mouth in [place] 00 :00 the Medical morning Branch and 1 tablet in the evening. metoprolol 2021-04- No [id number] 25mg Take 1 [facility] tartrate 25 06-03 tablet by [facility] of mg tablet 00:00: 00:00 mouth in [place] 00 :00 the Medical morning Branch and 1 tablet in the evening. warfarin 2021-04 Yes [id number] 1mg Take 1 [facility] mg tablet 2-01 tablet by [facility] o f 00:00: mouth [place] 00 every Medical evening. Branch Alternate take 1mg x3 days, then 2mg x 4 days warfarin 2021-04 Yes [id number] 1mg Take 1 [facility] mg tablet 2-01 tablet by [facility] o f 00:00: mouth [place] 00 every Medical evening. Branch Alternate take 1mg x3 days, then 2mg x 4 days dofetilide 2021-04 Yes [id number] 125ug Take 1 [facility] 125 mcg 2-01 capsule by [facility] capsule 00:00: mouth [place] 00 every 12 Medical (twelve) Branch hours. warfarin 2021-04 Yes [id number] 1mg Take 1 [facility] mg tablet 2-01 tablet by [facility] o f 00:00: mouth [place] 00 every Medical evening. Branch Alternate take 1mg x3 days, then 2mg x 4 days dofetilide 2021-04 Yes [id number] 125ug Take 1 [facility] 125 mcg 2-01 capsule by [facility] of capsule 00:00: mouth [place] 00 every 12 Medical (twelve) Branch hours. warfarin 2021-04 Yes [id number] 1mg Take 1 [facility] mg tablet 2-01 tablet by [facility] o f 00:00: mouth [place] 00 every Medical evening. Branch Alternate take 1mg x3 days, then 2mg x 4 days dofetilide 2021-04 Yes [id number] 125ug Take 1 [facility] 125 mcg 2-01 capsule by [facility] of capsule 00:00: mouth [place] 00 every 12 Medical (twelve) Branch hours. warfarin 2021-04 Yes [id number] 1mg Take 1 [facility] mg tablet 2-01 tablet by [facility] o f 00:00: mouth [place] 00 every Medical evening. Branch Alternate take 1mg x3 days, then 2mg x 4 days dofetilide 2021-04 Yes [id number] 125ug Take 1 [facility] 125 mcg 2-01 capsule by [facility] of capsule 00:00: mouth [place] 00 every 12 Medical (twelve) Branch hours. warfarin 2021-04 Yes [id number] 1mg Take 1 [facility] mg tablet 2-01 tablet by [facility] o f 00:00: mouth [place] 00 every Medical evening. Branch Alternate take 1mg x3 days, then 2mg x 4 days dofetilide 2021-04 Yes [id number] 125ug Take 1 [facility] 125 mcg 2-01 capsule by [facility] of capsule 00:00: mouth [place] 00 every 12 Medical (twelve) Branch hours. warfarin 2021-04 Yes [id number] 1mg Take 1 [facility] mg tablet 2-01 tablet by [facility] o f 00:00: mouth [place] 00 every Medical evening. Branch Alternate take 1mg x3 days, then 2mg x 4 days dofetilide 2021-04 Yes [id number] 125ug Take 1 [facility] 125 mcg 2-01 capsule by [facility] of capsule 00:00: mouth [place] 00 every 12 Medical (twelve) Branch hours. warfarin 2021-04 Yes [id number] 1mg Take 1 [facility] mg tablet 2-01 tablet by [facility] o f 00:00: mouth [place] 00 every Medical evening. Branch Alternate take 1mg x3 days, then 2mg x 4 days dofetilide 2021-04 Yes [id number] 125ug Take 1 [facility] 125 mcg 2-01 capsule by [facility] of capsule 00:00: mouth [place] 00 every 12 Medical (twelve) Branch hours. warfarin 2021-04 Yes [id number] 1mg Take 1 [facility] mg tablet 2-01 tablet by [facility] o f 00:00: mouth [place] 00 every Medical evening. Branch Alternate take 1mg x3 days, then 2mg x 4 days dofetilide 2021-04 Yes [id number] 125ug Take 1 [facility] 125 mcg 2-01 capsule by [facility] of capsule 00:00: mouth [place] 00 every 12 Medical (twelve) Branch hours. warfarin 2021-04 Yes [id number] 1mg Take 1 [facility] mg tablet 2-01 tablet by [facility] o f 00:00: mouth [place] 00 every Medical evening. Branch Alternate take 1mg x3 days, then 2mg x 4 days dofetilide 2021-04 Yes [id number] 125ug Take 1 [facility] 125 mcg 2-01 capsule by [facility] of capsule 00:00: mouth [place] 00 every 12 Medical (twelve) Branch hours. warfarin 2021-04 Yes [id number] 1mg Take 1 [facility] mg tablet 2-01 tablet by [facility] o f 00:00: mouth [place] 00 every Medical evening. Branch Alternate take 1mg x3 days, then 2mg x 4 days dofetilide 2021-04 Yes [id number] 125ug Take 1 [facility] 125 mcg 2-01 capsule by [facility] capsule 00:00: mouth [place] 00 every 12 Medical (twelve) Branch hours. warfarin 2021-04 Yes [id number] 1mg Take 1 [facility] mg tablet 2-01 tablet by [facility] o f 00:00: mouth [place] 00 every Medical evening. Branch Alternate take 1mg x3 days, then 2mg x 4 days dofetilide 2021-04 Yes [id number] 125ug Take 1 [facility] 125 mcg 2-01 capsule by [facility] capsule 00:00: mouth [place] 00 every 12 Medical (twelve) Branch hours. warfarin 2021-04 Yes [id number] 1mg Take 1 [facility] mg tablet 2-01 tablet by [facility] o f 00:00: mouth [place] 00 every Medical evening. Branch Alternate take 1mg x3 days, then 2mg x 4 days dofetilide 2021-04 Yes [id number] 125ug Take 1 [facility] 125 mcg 2-01 capsule by [facility] of capsule 00:00: mouth [place] 00 every 12 Medical (twelve) Branch hours. warfarin 2021-04 Yes [id number] 1mg Take 1 [facility] mg tablet 2-01 tablet by [facility] o f 00:00: mouth [place] 00 every Medical evening. Branch Alternate take 1mg x3 days, then 2mg x 4 days dofetilide 2021-04 Yes [id number] 125ug Take 1 [facility] 125 mcg 2-01 capsule by [facility] of capsule 00:00: mouth [place] 00 every 12 Medical (twelve) Branch hours. warfarin 2021-04 Yes [id number] 1mg Take 1 [facility] mg tablet 2-01 tablet by [facility] o f 00:00: mouth [place] 00 every Medical evening. Branch Alternate take 1mg x3 days, then 2mg x 4 days dofetilide 2021-04 Yes [id number] 125ug Take 1 [facility] 125 mcg 2-01 capsule by [facility] of capsule 00:00: mouth [place] 00 every 12 Medical (twelve) Branch hours. warfarin 2021-04 Yes [id number] 1mg Take 1 [facility] mg tablet 2- tablet by [facility] o f 00:00: mouth [place] 00 every Medical evening. Branch Alternate take 1mg x3 days, then 2mg x 4 days dofetilide 2021-04 Yes [id number] 125ug Take 1 [facility] 125 mcg 2-01 capsule by [facility] capsule 00:00: mouth [place] 00 every 12 Medical (twelve) Branch hours. warfarin 2021-04- No [id number] 1mg Take 1 [facility] mg tablet 2-04 16- tablet by [facility] of 00:00: 00:00 mouth [place] 00 :00 every Medical evening. Branch Alternate take 1mg x3 days, then 2mg x 4 days dofetilide 2021-04- No [id number] 125ug Take 1 [facility] 125 mcg 2-04 16-27 capsule by [facility] o f capsule 00:00: 00:00 mouth [place] 00 :00 every 12 Medical (twelve) Branch hours. warfarin 2021-04- No [id number] 1mg Take 1 [facility] mg tablet 2-04 16-27 tablet by [facility] of 00:00: 00:00 mouth [place] 00 :00 every Medical evening. Branch Alternate take 1mg x3 days, then 2mg x 4 days dofetilide 2021-04- No [id number] 125ug Take 1 [facility] 125 mcg 2-04 16-27 capsule by [facility] o f capsule 00:00: 00:00 mouth [place] 00 :00 every 12 Medical (twelve) Branch hours. warfarin 1 2021-04- No [id number] 1mg Take 1 [facility] mg tablet 05-16 tablet by [facility] of 00:00: 00:00 mouth [place] 00 :00 every Medical evening. Branch Alternate take 1mg x3 days, then 2mg x 4 days dofetilide 2021-04- No [id number] 125ug Take 1 [facility] 125 mcg 05-16 capsule by [facility] o f capsule 00:00: 00:00 mouth [place] 00 :00 every 12 Medical (twelve) Branch hours. warfarin 2021-04- No [id number] 1mg Take 1 [facility] mg tablet 05-16 tablet by [facility] of 00:00: 00:00 mouth [place] 00 :00 every Medical evening. Branch Alternate take 1mg x3 days, then 2mg x 4 days dofetilide 2021-04- No [id number] 125ug Take 1 [facility] 125 mcg 05-16 capsule by [facility] o f capsule 00:00: 00:00 mouth [place] 00 :00 every 12 Medical (twelve) Branch hours. warfarin 2021-04- No [id number] 1mg Take 1 [facility] mg tablet 05-16 tablet by [facility] of 00:00: 00:00 mouth [place] 00 :00 every Medical evening. Branch Alternate take 1mg x3 days, then 2mg x 4 days dofetilide 2021-04- No [id number] 125ug Take 1 [facility] 125 mcg 05-16 capsule by [facility] o f capsule 00:00: 00:00 mouth [place] 00 :00 every 12 Medical (twelve) Branch hours. warfarin 2021-04 Yes [id number] 1mg Take 1 [facility] mg tablet 1-01 tablet by [facility] o f 00:00: mouth [place] 00 every Medical evening. Branch Alternate take 1mg x4 days, then 2mg x 3 days warfarin 1 2021-04 Yes [id number] 1mg Take 1 [facility] mg tablet 1-01 tablet by [facility] o f 00:00: mouth [place] 00 every Medical evening. Branch Alternate take 1mg x4 days, then 2mg x 3 days warfarin 2021-04 Yes [id number] 1mg Take 1 [facility] mg tablet 1-01 tablet by [facility] o f 00:00: mouth [place] 00 every Medical evening. Branch Alternate take 1mg x4 days, then 2mg x 3 days warfarin 2021-04 Yes [id number] 1mg Take 1 [facility] mg tablet 1-01 tablet by [facility] o f 00:00: mouth [place] 00 every Medical evening. Branch Alternate take 1mg x4 days, then 2mg x 3 days warfarin 2021-04 Yes [id number] 1mg Take 1 [facility] mg tablet 1-01 tablet by [facility] o f 00:00: mouth [place] 00 every Medical evening. Branch Alternate take 1mg x4 days, then 2mg x 3 days warfarin 2021-04 Yes [id number] 1mg Take 1 [facility] mg tablet 1-01 tablet by [facility] o f 00:00: mouth [place] 00 every Medical evening. Branch Alternate take 1mg x4 days, then 2mg x 3 days warfarin 2021-04 Yes [id number] 1mg Take 1 [facility] mg tablet 1-01 tablet by [facility] o f 00:00: mouth [place] 00 every Medical evening. Branch Alternate take 1mg x4 days, then 2mg x 3 days warfarin 2021-04 Yes [id number] 1mg Take 1 [facility] mg tablet 1- tablet by [facility] o f 00:00: mouth [place] 00 every Medical evening. Branch Alternate take 1mg x4 days, then 2mg x 3 days warfarin 2021-04 Yes [id number] 1mg Take 1 [facility] mg tablet 1-01 tablet by [facility] o f 00:00: mouth [place] 00 every Medical evening. Branch Alternate take 1mg x4 days, then 2mg x 3 days warfarin 2021-04 Yes [id number] 1mg Take 1 [facility] mg tablet 1-01 tablet by [facility] o f 00:00: mouth [place] 00 every Medical evening. Branch Alternate take 1mg x4 days, then 2mg x 3 days warfarin 2021-04 Yes [id number] 1mg Take 1 [facility] mg tablet 1-01 tablet by [facility] o f 00:00: mouth [place] 00 every Medical evening. Branch Alternate take 1mg x4 days, then 2mg x 3 days warfarin 2021-04- No [id number] 1mg Take 1 [facility] mg tablet 1-01 12- tablet by [facility] of 00:00: 00:00 mouth [place] 00 :00 every Medical evening. Branch Alternate take 1mg x4 days, then 2mg x 3 days warfarin 2021-04 Yes [id number] 1mg Take 1 [facility] mg tablet 0-17 tablet by [facility] o f 00:00: mouth [place] 00 every Medical evening. Branch Alternate take 1mg x4 days, then 2mg x 3 days warfarin 2021-04- No [id number] 1mg Take 1 [facility] mg tablet 0-17 [...] the Medical morning. Branch warfarin 0 Yes [id number] 1mg Take 1 [facility] mg tablet 8-24 tablet by [facility] o f 00:00: mouth [place] 00 every Medical evening. Branch Alternate take 1mg x2days, then 2mg x 1 day warfarin 0 Yes [id number] 1mg Take 1 [facility] mg tablet 8-24 tablet by [facility] o f 00:00: mouth [place] 00 every Medical evening. Branch Alternate take 1mg x2days, then 2mg x 1 day warfarin 1 0 Yes [id number] 1mg Take 1 [facility] mg tablet 8-24 tablet by [facility] o f 00:00: mouth [place] 00 every Medical evening. Branch Alternate take 1mg x2days, then 2mg x 1 day warfarin 1 0 Yes [id number] 1mg Take 1 [facility] mg tablet 8-24 tablet by [facility] o f 00:00: mouth [place] 00 every Medical evening. Branch Alternate take 1mg x2days, then 2mg x 1 day warfarin 1 0 Yes [id number] 1mg Take 1 [facility] mg tablet 8-24 tablet by [facility] o f 00:00: mouth [place] 00 every Medical evening. Branch Alternate take 1mg x2days, then 2mg x 1 day warfarin 1 Yes [id number] 1mg Take 1 [facility] mg tablet 8-24 tablet by [facility] o f 00:00: mouth [place] 00 every Medical evening. Branch Alternate take 1mg x2days, then 2mg x 1 day warfarin 1 Yes [id number] 1mg Take 1 [facility] mg tablet 8-24 tablet by [facility] o f 00:00: mouth [place] 00 every Medical evening. Branch Alternate take 1mg x2days, then 2mg x 1 day warfarin 1 Yes [id number] 1mg Take 1 [facility] mg tablet 8-24 tablet by [facility] o f 00:00: mouth [place] 00 every Medical evening. Branch Alternate take 1mg x2days, then 2mg x 1 day warfarin Yes [id number] 1mg Take 1 [facility] mg tablet 8-24 tablet by [facility] o f 00:00: mouth [place] 00 every Medical evening. Branch Alternate take 1mg x2days, then 2mg x 1 day warfarin Yes [id number] 1mg Take 1 [facility] mg tablet 8-24 tablet by [facility] o f 00:00: mouth [place] 00 every Medical evening. Branch Alternate take 1mg x2days, then 2mg x 1 day warfarin Yes [id number] 1mg Take 1 [facility] mg tablet 8-24 tablet by [facility] o f 00:00: mouth [place] 00 every Medical evening. Branch Alternate take 1mg x2days, then 2mg x 1 day warfarin 1 Yes [id number] 1mg Take 1 [facility] mg tablet 8-24 tablet by [facility] o f 00:00: mouth [place] 00 every Medical evening. Branch Alternate take 1mg x2days, then 2mg x 1 day warfarin Yes [id number] 1mg Take 1 [facility] mg tablet 8-24 tablet by [facility] o f 00:00: mouth [place] 00 every Medical evening. Branch Alternate take 1mg x2days, then 2mg x 1 day warfarin 1 2021- No [id number] 1mg Take 1 [facility] mg tablet 8-24 10-17 tablet by [facility] of 00:00: 00:00 mouth [place] 00 :00 every Medical evening. Branch Alternate take 1mg x2days, then 2mg x 1 day warfarin 1 2021- No [id number] 2mg Take 2 [facility] mg tablet 8-23 08-24 tablets by [facility] of 00:00: 00:00 mouth [place] 00 :00 every Medical evening. Branch dofetilide 2021- No [id number] 125ug Take 1 [facility] 125 mcg 8-19 08-27 capsule by [facility] o f capsule 00:00: 04:59 mouth [place] 00 :00 every 12 Medical (twelve) Branch hours for 7 days. dofetilide 2021- No [id number] 125ug Take 1 [facility] 125 mcg 8-19 08-27 capsule by [facility] o f capsule 00:00: 04:59 mouth [place] 00 :00 every 12 Medical (twelve) Branch hours for 7 days. dofetilide 2021- No [id number] 125ug Take 1 [facility] 125 mcg 8-17 11-16 capsule by [facility] o f capsule 00:00: 05:59 mouth [place] 00 :00 every 12 Medical (twelve) Branch hours for 90 days. dofetilide 2021- No [id number] 125ug Take 1 [facility] 125 mcg 8-17 11-16 capsule by [facility] o f capsule 00:00: 05:59 mouth [place] 00 :00 every 12 Medical (twelve) Branch hours for 90 days. dofetilide 2021- No [id number] 125ug Take 1 [facility] 125 mcg 8-17 11-16 capsule by [facility] o f capsule 00:00: 05:59 mouth [place] 00 :00 every 12 Medical (twelve) Branch hours for 90 days. dofetilide 2021- No [id number] 125ug Take 1 [facility] 125 mcg 8-17 11-16 capsule by [facility] o f capsule 00:00: 05:59 mouth [place] 00 :00 every 12 Medical (twelve) Branch hours for 90 days. dofetilide 2021- No [id number] 125ug Take 1 [facility] 125 mcg 8-17 11-16 capsule by [facility] o f capsule 00:00: 05:59 mouth [place] 00 :00 every 12 Medical (twelve) Branch hours for 90 days. dofetilide 2021- No [id number] 125ug Take 1 [facility] 125 mcg 8-17 11-16 capsule by [facility] o f capsule 00:00: 05:59 mouth [place] 00 :00 every 12 Medical (twelve) Branch hours for 90 days. dofetilide 2021- No [id number] 125ug Take 1 [facility] 125 mcg 8-17 11-16 capsule by [facility] o f capsule 00:00: 05:59 mouth [place] 00 :00 every 12 Medical (twelve) Branch hours for 90 days. dofetilide 2021- No [id number] 125ug Take 1 [facility] 125 mcg 8-17 11-16 capsule by [facility] o f capsule 00:00: 05:59 mouth [place] 00 :00 every 12 Medical (twelve) Branch hours for 90 days. dofetilide 2021- No [id number] 125ug Take 1 [facility] 125 mcg 8-17 11-16 capsule by [facility] o f capsule 00:00: 05:59 mouth [place] 00 :00 every 12 Medical (twelve) Branch hours for 90 days. dofetilide 2021- No [id number] 125ug Take 1 [facility] 125 mcg 8-17 11-16 capsule by [facility] o f capsule 00:00: 05:59 mouth [place] 00 :00 every 12 Medical (twelve) Branch hours for 90 days. dofetilide 2021- No [id number] 125ug Take 1 [facility] 125 mcg 8-17 11-16 capsule by [facility] o f capsule 00:00: 05:59 mouth [place] 00 :00 every 12 Medical (twelve) Branch hours for 90 days. dofetilide 2021- No [id number] 125ug Take 1 [facility] 125 mcg 8-17 11-16 capsule by [facility] o f capsule 00:00: 05:59 mouth [place] 00 :00 every 12 Medical (twelve) Branch hours for 90 days. dofetilide 2021- No [id number] 125ug Take 1 [facility] 125 mcg 8-17 11-16 capsule by [facility] o f capsule 00:00: 05:59 mouth [place] 00 :00 every 12 Medical (twelve) Branch hours for 90 days. dofetilide 2021- No [id number] 125ug Take 1 [facility] 125 mcg 8-17 11-16 capsule by [facility] o f capsule 00:00: 05:59 mouth [place] 00 :00 every 12 Medical (twelve) Branch hours for 90 days. dofetilide 2021- No [id number] 125ug Take 1 [facility] 125 mcg 8-17 11-16 capsule by [facility] o f capsule 00:00: 05:59 mouth [place] 00 :00 every 12 Medical (twelve) Branch hours for 90 days. dofetilide 2021- No [id number] 125ug Take 1 [facility] 125 mcg 8-17 11-16 capsule by [facility] o f capsule 00:00: 05:59 mouth [place] 00 :00 every 12 Medical (twelve) Branch hours for 90 days. dofetilide 2- No [id number] 125ug Take 1 [facility] 125 mcg 8-17 11-16 capsule by [facility] o f capsule 00:00: 05:59 mouth [place] 00 :00 every 12 Medical (twelve) Branch hours for 90 days. dofetilide 2021- No [id number] 125ug Take 1 [facility] 125 mcg 8-17 11-16 capsule by [facility] o f capsule 00:00: 05:59 mouth [place] 00 :00 every 12 Medical (twelve) Branch hours for 90 days. dofetilide 2021- No [id number] 125ug Take 1 [facility] 125 mcg 8-17 11-16 capsule by [facility] o f capsule 00:00: 05:59 mouth [place] 00 :00 every 12 Medical (twelve) Branch hours for 90 days. dofetilide 2021- No [id number] 125ug Take 1 [facility] 125 mcg 8-17 11-16 capsule by [facility] o f capsule 00:00: 05:59 mouth [place] 00 :00 every 12 Medical (twelve) Branch hours for 90 days. atorvastati Yes 80mg Take 1 [facility] ers n 80 mg 7-12 tablet by [facility] of tablet 00:00: mouth at [place] [address] bedtime. Medical Branch atorvastati Yes 80mg Take 1 [facility] ers n 80 mg 7-12 tablet by [facility] of tablet 00:00: mouth at [place] 00 bedtime. Medical Branch atorvastati Yes 80mg Take 1 [facility] ers n 80 mg 7-12 tablet by [facility] of tablet 00:00: mouth at [place] [address] bedtime. Medical Branch atorvastati Yes 80mg Take 1 [facility] n 80 mg 7-12 tablet by [facility] of tablet 00:00: mouth at [place] [address] bedtime. Medical Branch atorvastati Yes 80mg Take 1 [facility] n 80 mg 7-12 tablet by [facility] of tablet 00:00: mouth at [place] [address] bedtime. Medical Branch atorvastati 2022-0 Yes 80mg Take 1 [facility] n 80 mg 7-12 tablet by [facility] of tablet 00:00: mouth at [place] [address] bedtime. Medical Branch atorvastati 2022-0 Yes 80mg Take 1 [facility] n 80 mg 7-12 tablet by [facility] of tablet 00:00: mouth at [place] [address] bedtime. Medical Branch atorvastati 2022-0 Yes 80mg Take 1 [facility] n 80 mg 7-12 tablet by [facility] of tablet 00:00: mouth at [place] [address] bedtime. Medical Branch atorvastati 2022-0 Yes 80mg Take 1 [facility] n 80 mg 7-12 tablet by [facility] of tablet 00:00: mouth at [place] [address] bedtime. Medical Branch atorvastati 2022-0 Yes 80mg Take 1 [facility] n 80 mg 7-12 tablet by [facility] of tablet 00:00: mouth at [place] [address] bedtime. Medical Branch atorvastati 2022-0 Yes 80mg Take 1 [facility] n 80 mg 7-12 tablet by [facility] of tablet 00:00: mouth at [place] [address] bedtime. Medical Branch atorvastati 2-0 Yes 80mg Take 1 [facility] n 80 mg 7-12 tablet by [facility] of tablet 00:00: mouth at [place] [address] bedtime. Medical Branch atorvastati 2022-0 Yes 80mg Take 1 [facility] n 80 mg 7-12 tablet by [facility] of tablet 00:00: mouth at [place] [address] bedtime. Medical Branch atorvastati 2022-0 Yes 80mg Take 1 [facility] n 80 mg 7-12 tablet by [facility] of tablet 00:00: mouth at [place] [address] bedtime. Medical Branch atorvastati 2022-0 Yes 80mg Take 1 [facility] n 80 mg 7-12 tablet by [facility] of tablet 00:00: mouth at [place] [address] bedtime. Medical Branch atorvastati 2022-0 Yes 80mg Take 1 [facility] n 80 mg 7-12 tablet by [facility] of tablet 00:00: mouth at [place] [address] bedtime. Medical Branch atorvastati 2022-0 Yes 80mg Take 1 [facility] n 80 mg 7-12 tablet by [facility] of tablet 00:00: mouth at [place] [address] bedtime. Medical Branch atorvastati 2022-0 Yes 80mg Take 1 [facility] n 80 mg 7-12 tablet by [facility] of tablet 00:00: mouth at [place] [address] bedtime. Medical Branch atorvastati 2-0 Yes 80mg Take 1 [facility] n 80 mg 7-12 tablet by [facility] of tablet 00:00: mouth at [place] [address] bedtime. Medical Branch atorvastati 2022-0 Yes 80mg Take 1 [facility] n 80 mg 7-12 tablet by [facility] of tablet 00:00: mouth at [place] bedtime. Medical Branch atorvastati 2-0 Yes 80mg Take 1 [facility] n 80 mg 7-12 tablet by [facility] of tablet 00:00: mouth at [place] [address] bedtime. Medical Branch atorvastati 2-0 Yes 80mg Take 1 [facility] n 80 mg 7-12 tablet by [facility] of tablet 00:00: mouth at [place] [address] bedtime. Medical Branch atorvastati 2-0 Yes 80mg Take 1 [facility] n 80 mg 7-12 tablet by [facility] of tablet 00:00: mouth at [place] [address] bedtime. Medical Branch atorvastati 2-0 Yes 80mg Take 1 [facility] n 80 mg 7-12 tablet by [facility] of tablet 00:00: mouth at [place] [address] bedtime. Medical Branch atorvastati 2-0 Yes 80mg Take 1 [facility] n 80 mg 7-12 tablet by [facility] of tablet 00:00: mouth at [place] [address] bedtime. Medical Branch atorvastati 2022-0 Yes 80mg Take 1 [facility] n 80 mg 7-12 tablet by [facility] of tablet 00:00: mouth at [place] [address] bedtime. Medical Branch atorvastati 2022-0 Yes 80mg Take 1 [facility] n 80 mg 7-12 tablet by [facility] of tablet 00:00: mouth at [place] [address] bedtime. Medical Branch atorvastati 2022-0 Yes 80mg Take 1 [facility] n 80 mg 7-12 tablet by [facility] of tablet 00:00: mouth at [place] [address] bedtime. Medical Branch atorvastati 2022-0 Yes 80mg Take 1 [facility] n 80 mg 7-12 tablet by [facility] of tablet 00:00: mouth at [place] [address] bedtime. Medical Branch atorvastati 2022-0 Yes 80mg Take 1 [facility] n 80 mg 7-12 tablet by [facility] of tablet 00:00: mouth at [place] [address] bedtime. Medical Branch atorvastati 2022-0 Yes 80mg Take 1 [facility] n 80 mg 7-12 tablet by [facility] of tablet 00:00: mouth at [place] [address] bedtime. Medical Branch atorvastati 2022-0 Yes 80mg Take 1 [facility] n 80 mg 7-12 tablet by [facility] of tablet 00:00: mouth at [place] [address] bedtime. Medical Branch atorvastati 2022-0 Yes 80mg Take 1 [facility] n 80 mg 7-12 tablet by [facility] of tablet 00:00: mouth at [place] [address] bedtime. Medical Branch atorvastati 2022-0 Yes 80mg Take 1 [facility] n 80 mg 7-12 tablet by [facility] of tablet 00:00: mouth at [place] [address] bedtime. Medical Branch atorvastati 2022-0 Yes 80mg Take 1 [facility] n 80 mg 7-12 tablet by [facility] of tablet 00:00: mouth at [place] [address] bedtime. Medical Branch atorvastati 2022-0 Yes 80mg Take 1 [facility] n 80 mg 7-12 tablet by [facility] of tablet 00:00: mouth at [place] [address] bedtime. Medical Branch atorvastati 2-0 Yes 80mg Take 1 [facility] n 80 mg 7-12 tablet by [facility] of tablet 00:00: mouth at [place] [address] bedtime. Medical Branch atorvastati 2022-0 Yes 80mg Take 1 [facility] n 80 mg 7-12 tablet by [facility] of tablet 00:00: mouth at [place] [address] bedtime. Medical Branch atorvastati 2022-0 Yes 80mg Take 1 [facility] n 80 mg 7-12 tablet by [facility] of tablet 00:00: mouth at [place] [address] bedtime. Medical Branch atorvastati 2022-0 Yes 80mg Take 1 [facility] n 80 mg 7-12 tablet by [facility] of tablet 00:00: mouth at [place] [address] bedtime. Medical Branch atorvastati 2022-0 Yes 80mg Take 1 [facility] n 80 mg 7-12 tablet by [facility] of tablet 00:00: mouth at [place] [address] bedtime. Medical Branch atorvastati 2022-0 Yes 80mg Take 1 [facility] n 80 mg 7-12 tablet by [facility] of tablet 00:00: mouth at [place] [address] bedtime. Medical Branch atorvastati 2022-0 Yes 80mg Take 1 [facility] n 80 mg 7-12 tablet by [facility] of tablet 00:00: mouth at [place] [address] bedtime. Medical Branch atorvastati 2-0 Yes 80mg Take 1 [facility] n 80 mg 7-12 tablet by [facility] of tablet 00:00: mouth at [place] [address] bedtime. Medical Branch atorvastati 2022-0 Yes 80mg Take 1 [facility] n 80 mg 7-12 tablet by [facility] of tablet 00:00: mouth at [place] bedtime. Medical Branch atorvastati 2-0 Yes 80mg Take 1 [facility] n 80 mg 7-12 tablet by [facility] of tablet 00:00: mouth at [place] [address] bedtime. Medical Branch atorvastati 2-0 Yes 80mg Take 1 [facility] 80 mg 7-12 tablet by [facility] tablet 00:00: mouth at [place] [address] bedtime. [facility] atorvastati 2-0 Yes 80mg Take 1 [facility] 80 mg 7-12 tablet by [facility] tablet 00:00: mouth at [place] [address] bedtime. [facility] atorvastati 2-0 Yes 80mg Take 1 [facility] 80 mg 7-12 tablet by [facility] tablet 00:00: mouth at [place] [address] bedtime. [facility] atorvastati 2-0 Yes 80mg Take 1 [facility] 80 mg 7-12 tablet by [facility] tablet 00:00: mouth at [place] [address] bedtime. [facility] atorvastati 2022-0 Yes 80mg Take 1 [facility] 80 mg 7-12 tablet by [facility] tablet 00:00: mouth at [place] [address] bedtime. [facility] atorvastati 2022-0 Yes 80mg Take 1 [facility] 80 mg 7-12 tablet by [facility] tablet 00:00: mouth at [place] [address] bedtime. [facility] atorvastati 2022-0 Yes 80mg Take 1 [facility] 80 mg 7-12 tablet by [facility] tablet 00:00: mouth at [place] [address] bedtime. [facility] atorvastati 2022-0 Yes 80mg Take 1 [facility] 80 mg 7-12 tablet by [facility] tablet 00:00: mouth at [place] [address] bedtime. [facility] atorvastati 2022-0 Yes 80mg Take 1 [facility] 80 mg 7-12 tablet by [facility] tablet 00:00: mouth at [place] [address] bedtime. [facility] atorvastati 2022-0 Yes 80mg Take 1 [facility] 80 mg 7-12 tablet by [facility] tablet 00:00: mouth at [place] [address] bedtime. [facility] atorvastati 2022-0 Yes 80mg Take 1 [facility] 80 mg 7-12 tablet by [facility] tablet 00:00: mouth at [place] [address] bedtime. [facility] atorvastati 2022-0 Yes 80mg Take 1 [facility] 80 mg 7-12 tablet by [facility] tablet 00:00: mouth at [place] [address] bedtime. [facility] atorvastati 2022-0 Yes 80mg Take 1 [facility] 80 mg 7-12 tablet by [facility] tablet 00:00: mouth at [place] [address] bedtime. [facility] atorvastati 2022-0 Yes 80mg Take 1 [facility] 80 mg 7-12 tablet by [facility] tablet 00:00: mouth at [place] [address] bedtime. [facility] atorvastati 2022-0 Yes 80mg Take 1 [facility] 80 mg 7-12 tablet by [facility] tablet 00:00: mouth at [place] [address] bedtime. [facility] atorvastati 2-0 Yes 80mg Take 1 [facility] 80 mg 7-12 tablet by [facility] tablet 00:00: mouth at [place] [address] bedtime. [facility] atorvastati 2022-0 Yes 80mg Take 1 [facility] 80 mg 7-12 tablet by [facility] tablet 00:00: mouth at [place] [address] bedtime. [facility] atorvastati 2022-0 Yes 80mg Take 1 [facility] 80 mg 7-12 tablet by [facility] tablet 00:00: mouth at [place] [address] bedtime. [facility] atorvastati 2022-0 Yes 80mg Take 1 [facility] 80 mg 7-12 tablet by [facility] tablet 00:00: mouth at [place] [address] bedtime. [facility] atorvastati 2022-0 Yes 80mg Take 1 [facility] 80 mg 7-12 tablet by [facility] tablet 00:00: mouth at [place] [address] bedtime. [facility] atorvastati 2022-0 Yes 80mg Take 1 [facility] 80 mg 7-12 tablet by [facility] tablet 00:00: mouth at [place] [address] bedtime. [facility] atorvastati 2022-0 Yes 80mg Take 1 [facility] 80 mg 7-12 tablet by [facility] tablet 00:00: mouth at [place] [address] bedtime. [facility] atorvastati 2-0 Yes 80mg Take 1 [facility] 80 mg 7-12 tablet by [facility] tablet 00:00: mouth at [place] [address] bedtime. [facility] atorvastati 2022-0 Yes 80mg Take 1 [facility] 80 mg 7-12 tablet by [facility] tablet 00:00: mouth at [place] bedtime. [facility] atorvastati 2-0 Yes 80mg Take 1 [facility] 80 mg 7-12 tablet by [facility] tablet 00:00: mouth at [place] [address] bedtime. [facility] atorvastati 2-0 Yes 80mg Take 1 [facility] 80 mg 7-12 tablet by [facility] tablet 00:00: mouth at [place] [address] bedtime. [facility] atorvastati 2-0 Yes 80mg Take 1 [facility] 80 mg 7-12 tablet by [facility] tablet 00:00: mouth at [place] [address] bedtime. [facility] atorvastati 2-0 Yes 80mg Take 1 [facility] 80 mg 7-12 tablet by [facility] tablet 00:00: mouth at [place] [address] bedtime. [facility] atorvastati 2-0 Yes 80mg Take 1 [facility] 80 mg 7-12 tablet by [facility] tablet 00:00: mouth at [place] [address] bedtime. [facility] atorvastati 2022-0 Yes 80mg Take 1 [facility] 80 mg 7-12 tablet by [facility] tablet 00:00: mouth at [place] [address] bedtime. [facility] atorvastati 2022-0 Yes 80mg Take 1 [facility] 80 mg 7-12 tablet by [facility] tablet 00:00: mouth at [place] [address] bedtime. [facility] atorvastati 2022-0 Yes 80mg Take 1 [facility] 80 mg 7-12 tablet by [facility] tablet 00:00: mouth at [place] [address] bedtime. [facility] atorvastati 2022-0 Yes 80mg Take 1 [facility] 80 mg 7-12 tablet by [facility] tablet 00:00: mouth at [place] [address] bedtime. [facility] atorvastati 2022-0 Yes 80mg Take 1 [facility] 80 mg 7-12 tablet by [facility] tablet 00:00: mouth at [place] [address] bedtime. [facility] atorvastati 2021-0 Yes 80mg Take 1 [facility] 80 mg 7-12 tablet by [facility] tablet 00:00: mouth at [place] [address] bedtime. [facility] atorvastati 2021-0 Yes 80mg Take 1 [facility] 80 mg 7-12 tablet by [facility] tablet 00:00: mouth at [place] [address] bedtime. [facility] atorvastati 2021-0 Yes 80mg Take 1 [facility] 80 mg 7-12 tablet by [facility] tablet 00:00: mouth at [place] [address] bedtime. [facility] atorvastati 2021-0 Yes 80mg Take 1 [facility] 80 mg 7-12 tablet by [facility] tablet 00:00: mouth at [place] [address] bedtime. [facility] atorvastati 2021-0 2023- No 80mg Take 1 [facility] 80 mg 7-12 07-12 tablet by [facility] tablet 00:00: 00:00 mouth at [place] 00 :00 bedtime. [facility] atorvastati 2021-0 3- No 80mg Take 1 [facility] n 80 mg 7-12 07-12 tablet by [facility] tablet 00:00: 00:00 mouth at [place] 00 :00 bedtime. [facility] ezetimibe 2021-0 [...] 00:00: mouth 00 daily. [facility] ezetimibe 2021-0 Yes 10mg Take 1 [facility] (ZETIA) 10 5-20 tablet by [facility] mg tablet 00:00: mouth 00 daily. [facility] ezetimibe 2021-0 Yes 10mg Take 1 [facility] (ZETIA) 10 5-20 tablet by [facility] mg tablet 00:00: mouth 00 daily. [facility] ezetimibe 0 Yes 10mg Take 1 [facility] (ZETIA) 10 5-20 tablet by [facility] mg tablet 00:00: mouth [place] 00 daily. [facility] ezetimibe 2021- No 10mg Take 1 [facility] (ZETIA) 10 5-20 09-02 tablet by [facility] mg tablet 00:00: 00:00 mouth [place] 00 :00 daily. [facility] furosemide 0 Yes [id number] 40mg Take 2 [facility] 20 mg 2-16 02 tablets by [facility] tablet 00:00: mouth [place] 00 daily. [facility] furosemide 0 Yes [id number] 40mg Take 2 [facility] 20 mg 2-16 02 tablets by [facility] tablet 00:00: mouth [place] 00 daily. [facility] furosemide Yes [id number] 40mg Take 2 [facility] 20 mg 2-16 02 tablets by [facility] tablet 00:00: mouth [place] 00 daily. [facility] furosemide Yes [id number] 40mg Take 2 [facility] 20 mg 2-16 02 tablets by [facility] tablet 00:00: mouth [place] 00 daily. [facility] furosemide 0 Yes [id number] 40mg Take 2 [facility] 20 mg 2-16 02 tablets by [facility] tablet 00:00: mouth [place] 00 daily. [facility] furosemide Yes [id number] 40mg Take 2 [facility] 20 mg 2-16 02 tablets by [facility] tablet 00:00: mouth [place] 00 daily. [facility] furosemide 0 Yes [id number] 40mg Take 2 [facility] 20 mg 2-16 02 tablets by [facility] tablet 00:00: mouth [place] 00 daily. [facility] furosemide 0 Yes [id number] 40mg Take 2 [facility] 20 mg 2-16 02 tablets by [facility] tablet 00:00: mouth [place] 00 daily. [facility] furosemide 0 Yes [id number] 40mg Take 2 [facility] 20 mg 2-16 02 tablets by [facility] tablet 00:00: mouth [place] 00 daily. [facility] furosemide 0 Yes [id number] 40mg Take 2 [facility] 20 mg 2-16 02 tablets by [facility] tablet 00:00: mouth [place] 00 daily. [facility] furosemide 0 Yes [id number] 40mg Take 2 [facility] 20 mg 2-16 02 tablets by [facility] tablet 00:00: mouth [place] 00 daily. [facility] furosemide 2021-0 Yes [id number] 40mg Take 2 [facility] 20 mg 2-16 02 tablets by [facility] tablet 00:00: mouth [place] 00 daily. [facility] furosemide 2021-0 Yes [id number] 40mg Take 2 [facility] 20 mg 2-16 02 tablets by [facility] tablet 00:00: mouth [place] 00 daily. [facility] furosemide 2021-0 Yes [id number] 40mg Take 2 [facility] 20 mg 2-16 02 tablets by [facility] tablet 00:00: mouth [place] 00 daily. [facility] furosemide 2021-0 Yes [id number] 40mg Take 2 [facility] 20 mg 2-16 02 tablets by [facility] tablet 00:00: mouth [place] 00 daily. [facility] furosemide 2021-0 Yes [id number] 40mg Take 2 [facility] 20 mg 2-16 02 tablets by [facility] tablet 00:00: mouth [place] 00 daily. [facility] furosemide 2021-0 Yes [id number] 40mg Take 2 [facility] 20 mg 2-16 02 tablets by [facility] tablet 00:00: mouth [place] 00 daily. [facility] furosemide 2021-0 Yes [id number] 40mg Take 2 [facility] 20 mg 2-16 02 tablets by [facility] tablet 00:00: mouth [place] 00 daily. [facility] furosemide 2021-0 Yes [id number] 40mg Take 2 [facility] 20 mg 2-16 02 tablets by [facility] tablet 00:00: mouth [place] 00 daily. [facility] furosemide 2021-0 Yes [id number] 40mg Take 2 [facility] 20 mg 2-16 02 tablets by [facility] tablet 00:00: mouth [place] 00 daily. [facility] furosemide 2021-0 Yes [id number] 40mg Take 2 [facility] 20 mg 2-16 02 tablets by [facility] tablet 00:00: mouth [place] 00 daily. [facility] furosemide 2021-0 Yes [id number] 40mg Take 2 [facility] 20 mg 2-16 02 tablets by [facility] tablet 00:00: mouth [place] 00 daily. [facility] furosemide 2021-0 Yes [id number] 40mg Take 2 [facility] 20 mg 2-16 02 tablets by [facility] tablet 00:00: mouth [place] 00 daily. [facility] furosemide 2021-0 Yes [id number] 40mg Take 2 [facility] 20 mg 2-16 02 tablets by [facility] tablet 00:00: mouth [place] 00 daily. [facility] furosemide 2021-0 Yes [id number] 40mg Take 2 [facility] 20 mg 2-16 02 tablets by [facility] tablet 00:00: mouth [place] 00 daily. [facility] furosemide 2021-0 Yes [id number] 40mg Take 2 [facility] 20 mg 2-16 02 tablets by [facility] tablet 00:00: mouth [place] 00 daily. [facility] furosemide 2021-0 Yes [id number] 40mg Take 2 [facility] 20 mg 2-16 02 tablets by [facility] tablet 00:00: mouth [place] 00 daily. [facility] furosemide 0 Yes [id number] 40mg Take 2 [facility] 20 mg 2-16 02 tablets by [facility] tablet 00:00: mouth [place] 00 daily. [facility] furosemide 0 Yes [id number] 40mg Take 2 [facility] 20 mg 2-16 02 tablets by [facility] tablet 00:00: mouth [place] 00 daily. [facility] furosemide 0 Yes [id number] 40mg Take 2 [facility] 20 mg 2-16 02 tablets by [facility] tablet 00:00: mouth [place] 00 daily. [facility] furosemide 2021-0 Yes [id number] 40mg Take 2 [facility] 20 mg 2-16 02 tablets by [facility] tablet 00:00: mouth [place] 00 daily. [facility] furosemide 2021-0 Yes [id number] 40mg Take 2 [facility] 20 mg 2-16 02 tablets by [facility] tablet 00:00: mouth [place] 00 daily. [facility] furosemide 2021-0 Yes [id number] 40mg Take 2 [facility] 20 mg 2-16 02 tablets by [facility] tablet 00:00: mouth [place] 00 daily. [facility] furosemide 2021-0 Yes [id number] 40mg Take 2 [facility] 20 mg 2-16 02 tablets by [facility] tablet 00:00: mouth [place] 00 daily. [facility] furosemide 2021-0 Yes [id number] 40mg Take 2 [facility] 20 mg 2-16 02 tablets by [facility] tablet 00:00: mouth [place] 00 daily. [facility] furosemide 2021-0 Yes [id number] 40mg Take 2 [facility] 20 mg 2-16 02 tablets by [facility] tablet 00:00: mouth [place] 00 daily. [facility] furosemide Yes [id number] 40mg Take 2 [facility] 20 mg 2-16 02 tablets by [facility] tablet 00:00: mouth [place] 00 daily. [facility] furosemide Yes [id number] 40mg Take 2 [facility] 20 mg 2-16 02 tablets by [facility] tablet 00:00: mouth [place] 00 daily. [facility] furosemide Yes [id number] 40mg Take 2 [facility] 20 mg 2-16 02 tablets by [facility] tablet 00:00: mouth [place] 00 daily. [facility] furosemide Yes [id number] 40mg Take 2 [facility] 20 mg 2-16 02 tablets by [facility] tablet 00:00: mouth [place] 00 daily. [facility] furosemide Yes [id number] 40mg Take 2 [facility] 20 mg 2-16 02 tablets by [facility] tablet 00:00: mouth [place] 00 daily. [facility] furosemide Yes [id number] 40mg Take 2 [facility] 20 mg 2-16 02 tablets by [facility] tablet 00:00: mouth [place] 00 daily. [facility] furosemide 2022- No [id number] 40mg Take 2 [facility] 20 mg 2-16 02-27 02 tablets by [facility] tablet 00:00: 00:00 mouth [place] 00 :00 daily. [facility] furosemide 2022- No [id number] 40mg Take 2 [facility] 20 mg 2-16 02-27 02 tablets by [facility] tablet 00:00: 00:00 mouth [place] 00 :00 daily. [facility] furosemide 2022- No [id number] 40mg Take 2 [facility] 20 mg 2-16 02-27 02 tablets by [facility] tablet 00:00: 00:00 mouth [place] 00 :00 daily. [facility] furosemide 3- No [id number] 40mg Take 2 [facility] 20 mg 2-16 02-27 02 tablets by [facility] tablet 00:00: 00:00 mouth [place] 00 :00 daily. [facility] furosemide 3- No [id number] 40mg Take 2 [facility] 20 mg 2-16 02-27 02 tablets by [facility] tablet 00:00: 00:00 mouth [place] 00 :00 daily. [facility] metoprolol 2020-04 Yes [id number] 25mg Take 1 [facility] tartrate 25 2-15 tablet by [facility] mg tablet 00:00: mouth (two) [facility] times [facility] daily. metoprolol 2020-04 Yes [id number] 25mg Take 1 [facility] tartrate 25 2-15 tablet by [facility] mg tablet 00:00: mouth (two) [facility] times [facility] daily. metoprolol 2020-04 Yes [id number] 25mg Take 1 [facility] tartrate 25 2-15 tablet by [facility] mg tablet 00:00: mouth (two) [facility] times [facility] daily. metoprolol 2020-04 Yes [id number] 25mg Take 1 [facility] tartrate 25 2-15 tablet by [facility] mg tablet 00:00: mouth (two) [facility] times [facility] daily. metoprolol 2020-04 Yes [id number] 25mg Take 1 [facility] tartrate 25 2-15 tablet by [facility] mg tablet 00:00: mouth (two) [facility] times [facility] daily. metoprolol 2020-04 Yes [id number] 25mg Take 1 [facility] tartrate 25 2-15 tablet by [facility] mg tablet 00:00: mouth (two) [facility] times [facility] daily. metoprolol 2020-04 Yes [id number] 25mg Take 1 [facility] tartrate 25 2-15 tablet by [facility] mg tablet 00:00: mouth (two) [facility] times [facility] daily. metoprolol 2020-04 Yes [id number] 25mg Take 1 [facility] tartrate 25 2-15 tablet by [facility] mg tablet 00:00: mouth (two) [facility] times [facility] daily. metoprolol 2020-04 Yes [id number] 25mg Take 1 [facility] tartrate 25 2-15 tablet by [facility] mg tablet 00:00: mouth (two) [facility] times [facility] daily. metoprolol 2020-04 Yes [id number] 25mg Take 1 [facility] tartrate 25 2-15 tablet by [facility] mg tablet 00:00: mouth (two) [facility] times [facility] daily. metoprolol 2020-04 Yes [id number] 25mg Take 1 [facility] tartrate 25 2-15 tablet by [facility] mg tablet 00:00: mouth (two) [facility] times [facility] daily. metoprolol 2020-04 Yes [id number] 25mg Take 1 [facility] tartrate 25 2-15 tablet by [facility] mg tablet 00:00: mouth (two) [facility] times [facility] daily. metoprolol 2020-04 Yes [id number] 25mg Take 1 [facility] tartrate 25 2-15 tablet by [facility] mg tablet 00:00: mouth (two) [facility] times [facility] daily. metoprolol 2020-04 Yes [id number] 25mg Take 1 [facility] tartrate 25 2-15 tablet by [facility] mg tablet 00:00: mouth (two) [facility] times [facility] daily. metoprolol 2020-04 Yes [id number] 25mg Take 1 [facility] tartrate 25 2-15 tablet by [facility] mg tablet 00:00: mouth (two) [facility] times [facility] daily. metoprolol 2020-04 Yes [id number] 25mg Take 1 [facility] tartrate 25 2-15 tablet by [facility] mg tablet 00:00: mouth (two) [facility] times [facility] daily. metoprolol 2020-04 Yes [id number] 25mg Take 1 [facility] tartrate 25 2-15 tablet by [facility] mg tablet 00:00: mouth (two) [facility] times [facility] daily. metoprolol 2020-04 Yes [id number] 25mg Take 1 [facility] tartrate 25 2-15 tablet by [facility] mg tablet 00:00: mouth (two) [facility] times [facility] daily. metoprolol 2020-04 Yes [id number] 25mg Take 1 [facility] tartrate 25 2-15 tablet by [facility] mg tablet 00:00: mouth (two) [facility] times [facility] daily. metoprolol 2020-04 Yes [id number] 25mg Take 1 [facility] tartrate 25 2-15 tablet by [facility] mg tablet 00:00: mouth (two) [facility] times [facility] daily. metoprolol 2020-04 Yes [id number] 25mg Take 1 [facility] tartrate 25 2-15 tablet by [facility] mg tablet 00:00: mouth (two) [facility] times [facility] daily. metoprolol 2020-04 Yes [id number] 25mg Take 1 [facility] tartrate 25 2-15 tablet by [facility] mg tablet 00:00: mouth (two) [facility] times [facility] daily. metoprolol 2020-04 Yes [id number] 25mg Take 1 [facility] tartrate 25 2-15 tablet by [facility] mg tablet 00:00: mouth (two) [facility] times [facility] daily. metoprolol 2020-04 Yes [id number] 25mg Take 1 [facility] tartrate 25 2-15 tablet by [facility] mg tablet 00:00: mouth (two) [facility] times [facility] daily. metoprolol 2020-04 Yes [id number] 25mg Take 1 [facility] tartrate 25 2-15 tablet by [facility] mg tablet 00:00: mouth (two) [facility] times [facility] daily. metoprolol 2020-04 Yes [id number] 25mg Take 1 [facility] tartrate 25 2-15 tablet by [facility] mg tablet 00:00: mouth (two) [facility] times [facility] daily. metoprolol 2020-04 Yes [id number] 25mg Take 1 [facility] tartrate 25 2-15 tablet by [facility] mg tablet 00:00: mouth (two) [facility] times [facility] daily. metoprolol 2020-04 Yes [id number] 25mg Take 1 [facility] tartrate 25 2-15 tablet by [facility] mg tablet 00:00: mouth (two) [facility] times [facility] daily. metoprolol 2020-04 Yes [id number] 25mg Take 1 [facility] tartrate 25 2-15 tablet by [facility] mg tablet 00:00: mouth (two) [facility] times [facility] daily. metoprolol 2020-04- No [id number] 25mg Take 1 [facility] tartrate 25 2-15 12-19 tablet by [facility] mg tablet 00:00: 00:00 mouth [place] :[place] (two) [facility] times [facility] daily. polyethylen 2020-04 Yes [id number] 17g Take 1 [facility] e glycol 0-29 Packet by [facility] of 3350 17 00:00: mouth [place] gram powder 00 daily. [facility] polyethylen 2020-04 Yes [id number] 17g Take 1 [facility] e glycol 0-29 Packet by [facility] of 3350 17 00:00: mouth [place] gram powder 00 daily. [facility] polyethylen 2020-04 Yes [id number] 17g Take 1 [facility] e glycol 0-29 Packet by [facility] of 3350 17 00:00: mouth [place] gram powder 00 daily. [facility] polyethylen 2020-04 Yes [id number] 17g Take 1 [facility] e glycol 0-29 Packet by [facility] of 3350 17 00:00: mouth [place] gram powder 00 daily. [facility] polyethylen 2020-04 Yes [id number] 17g Take 1 [facility] e glycol 0-29 Packet by [facility] of 3350 17 00:00: mouth [place] gram powder 00 daily. [facility] polyethylen 2020-04 Yes [id number] 17g Take 1 [facility] e glycol 0-29 Packet by [facility] of 3350 17 00:00: mouth [place] gram powder 00 daily. [facility] polyethylen 2020-04 Yes [id number] 17g Take 1 [facility] e glycol 0-29 Packet by [facility] of 3350 17 00:00: mouth [place] gram powder 00 daily. [facility] polyethylen 2020-04 Yes [id number] 17g Take 1 [facility] e glycol 0-29 Packet by [facility] of 3350 17 00:00: mouth [place] gram powder 00 daily. [facility] polyethylen 2020-04 Yes [id number] 17g Take 1 [facility] e glycol 0-29 Packet by [facility] of 3350 17 00:00: mouth [place] gram powder 00 daily. [facility] polyethylen 2020-04 Yes [id number] 17g Take 1 [facility] e glycol 0-29 Packet by [facility] of 3350 17 00:00: mouth [place] gram powder 00 daily. [facility] polyethylen 2020-04 Yes [id number] 17g Take 1 [facility] e glycol 0-29 Packet by [facility] of 3350 17 00:00: mouth [place] gram powder 00 daily. [facility] polyethylen 2020-04 Yes [id number] 17g Take 1 [facility] e glycol 0-29 Packet by [facility] of 3350 17 00:00: mouth [place] gram powder 00 daily. [facility] polyethylen 2020-04 Yes [id number] 17g Take 1 [facility] e glycol 0-29 Packet by [facility] of 3350 17 00:00: mouth [place] gram powder 00 daily. [facility] polyethylen 2020-04 Yes [id number] 17g Take 1 [facility] e glycol 0-29 Packet by [facility] of 3350 17 00:00: mouth [place] gram powder 00 daily. [facility] polyethylen 2020-04 Yes [id number] 17g Take 1 [facility] e glycol 0-29 Packet by [facility] of 3350 17 00:00: mouth [place] gram powder 00 daily. [facility] polyethylen 2020-04 Yes [id number] 17g Take 1 [facility] e glycol 0-29 Packet by [facility] of 3350 17 00:00: mouth [place] gram powder 00 daily. [facility] polyethylen 2020-04 Yes [id number] 17g Take 1 [facility] e glycol 0-29 Packet by [facility] of 3350 17 00:00: mouth [place] gram powder 00 daily. [facility] polyethylen 2020-04 Yes [id number] 17g Take 1 [facility] e glycol 0-29 Packet by [facility] of 3350 17 00:00: mouth [place] gram powder 00 daily. [facility] polyethylen 2020-04 Yes [id number] 17g Take 1 [facility] e glycol 0-29 Packet by [facility] of 3350 17 00:00: mouth [place] gram powder 00 daily. [facility] polyethylen 2020-04 Yes [id number] 17g Take 1 [facility] e glycol 0-29 Packet by [facility] of 3350 17 00:00: mouth [place] gram powder 00 daily. [facility] polyethylen 2020-04 Yes [id number] 17g Take 1 [facility] e glycol 0-29 Packet by [facility] of 3350 17 00:00: mouth [place] gram powder 00 daily. [facility] polyethylen 2020-04 Yes [id number] 17g Take 1 [facility] e glycol 0-29 Packet by [facility] of 3350 17 00:00: mouth [place] gram powder 00 daily. [facility] polyethylen 2020-04 Yes [id number] 17g Take 1 [facility] e glycol 0-29 Packet by [facility] of 3350 17 00:00: mouth [place] gram powder 00 daily. [facility] polyethylen 2020-04 Yes [id number] 17g Take 1 [facility] e glycol 0-29 Packet by [facility] of 3350 17 00:00: mouth [place] gram powder 00 daily. [facility] polyethylen 2020-04 Yes [id number] 17g Take 1 [facility] e glycol 0-29 Packet by [facility] of 3350 17 00:00: mouth [place] gram powder 00 daily. [facility] polyethylen 2020-04 Yes [id number] 17g Take 1 [facility] e glycol 0-29 Packet by [facility] of 3350 17 00:00: mouth [place] gram powder 00 daily. [facility] polyethylen 2020-04 Yes [id number] 17g Take 1 [facility] e glycol 0-29 Packet by [facility] of 3350 17 00:00: mouth [place] gram powder 00 daily. [facility] polyethylen 2020-04 Yes [id number] 17g Take 1 [facility] e glycol 0-29 Packet by [facility] of 3350 17 00:00: mouth [place] gram powder 00 daily. [facility] polyethylen 2020-04 Yes [id number] 17g Take 1 [facility] e glycol 0-29 Packet by [facility] of 3350 17 00:00: mouth [place] gram powder 00 daily. [facility] polyethylen 2020-04 Yes [id number] 17g Take 1 [facility] e glycol 0-29 Packet by [facility] of 3350 17 00:00: mouth [place] gram powder 00 daily. [facility] polyethylen 2020-04 Yes [id number] 17g Take 1 [facility] e glycol 0-29 Packet by [facility] of 3350 17 00:00: mouth [place] gram powder 00 daily. [facility] polyethylen 2020-04 Yes [id number] 17g Take 1 [facility] glycol 0-29 Packet by [facility] of 3350 17 00:00: mouth [place] gram powder 00 daily. [facility] polyethylen 2020-04 Yes [id number] 17g Take 1 [facility] e glycol 0-29 Packet by [facility] of 3350 17 00:00: mouth [place] gram powder 00 daily. [facility] polyethylen 2020-04 Yes [id number] 17g Take 1 [facility] e glycol 0-29 Packet by [facility] of 3350 17 00:00: mouth [place] gram powder 00 daily. [facility] polyethylen 2020-04 Yes [id number] 17g Take 1 [facility] glycol 0-29 Packet by [facility] of 3350 17 00:00: mouth [place] gram powder 00 daily. [facility] polyethylen 2020-04 Yes [id number] 17g Take 1 [facility] glycol 0-29 Packet by [facility] of 3350 17 00:00: mouth [place] gram powder 00 daily. [facility] polyethylen 2020-04 Yes [id number] 17g Take 1 [facility] glycol 0-29 Packet by [facility] of 3350 17 00:00: mouth [place] gram powder 00 daily. [facility] polyethylen 2020-04 Yes [id number] 17g Take 1 [facility] glycol 0-29 Packet by [facility] of 3350 17 00:00: mouth [place] gram powder 00 daily. [facility] polyethylen 2020-04 Yes [id number] 17g Take 1 [facility] glycol 0-29 Packet by [facility] of 3350 17 00:00: mouth [place] gram powder 00 daily. [facility] polyethylen 2020-04 Yes [id number] 17g Take 1 [facility] glycol 0-29 Packet by [facility] of 3350 17 00:00: mouth [place] gram powder 00 daily. [facility] polyethylen 2020-04 Yes [id number] 17g Take 1 [facility] glycol 0-29 Packet by [facility] of 3350 17 00:00: mouth [place] gram powder 00 daily. [facility] polyethylen 2020-04- No [id number] 17g Take 1 [facility] e glycol 0-29 02-22 Packet by ity o f 3350 17 00:00: 00:00 mouth [place] gram powder 00 :00 daily. [facility] polyethylen 2020-04- No [id number] 17g Take 1 [facility] e glycol 0-29 02-22 Packet by ity o f 3350 17 00:00: 00:00 mouth [place] gram powder 00 :00 daily. [facility] polyethylen 2020-04- No [id number] 17g Take 1 [facility] glycol 0-29 02-22 Packet by ity o f 3350 17 00:00: 00:00 mouth [place] gram powder 00 :00 daily. [facility] docusate 2020-04 Yes [id number] 100mg Take 1 [facility] 100 mg 0-28 capsule by [facility] capsule 00:00: mouth 2 00 (two) [facility] times [facility] daily. docusate 2020-04 Yes [id number] 100mg Take 1 [facility] 100 mg 0-28 capsule by [facility] capsule 00:00: mouth 2 00 (two) [facility] times [facility] daily. docusate 2020-04 Yes [id number] 100mg Take 1 [facility] 100 mg 0-28 capsule by [facility] capsule 00:00: mouth (two) [facility] times [facility] daily. docusate 2020-04 Yes [id number] 100mg Take 1 [facility] nivers 100 mg 0-28 capsule by [facility] capsule 00:00: mouth (two) [facility] times [facility] daily. docusate 2020-04 Yes [id number] 100mg Take 1 [facility] 100 mg 0-28 capsule by [facility] of capsule 00:00: mouth (two) [facility] times [facility] daily. docusate 2020-04 Yes [id number] 100mg Take 1 [facility] 100 mg 0-28 capsule by [facility] of capsule 00:00: mouth (two) [facility] times [facility] daily. docusate 2020-04 Yes [id number] 100mg Take 1 [facility] 100 mg 0-28 capsule by [facility] of capsule 00:00: mouth [place] (two) Medical times [facility] daily. docusate 2020-04 Yes [id number] 100mg Take 1 [facility] 100 mg 0-28 capsule by [facility] of capsule 00:00: mouth [place] (two) Medical times [facility] daily. docusate 2020-04 Yes [id number] 100mg Take 1 [facility] 100 mg 0-28 capsule by [facility] of capsule 00:00: mouth [place] (two) Medical times [facility] daily. docusate 2020-04 Yes [id number] 100mg Take 1 [facility] 100 mg 0-28 capsule by [facility] of capsule 00:00: mouth [place] (two) Medical times [facility] daily. docusate 2020-04 Yes [id number] 100mg Take 1 [facility] 100 mg 0-28 capsule by [facility] of capsule 00:00: mouth [place] (two) Medical times [facility] daily. docusate 2020-04 Yes [id number] 100mg Take 1 [facility] 100 mg 0-28 capsule by [facility] of capsule 00:00: mouth [place] (two) Medical times [facility] daily. docusate 2020-04 Yes [id number] 100mg Take 1 [facility] 100 mg 0-28 capsule by [facility] of capsule 00:00: mouth (two) Medical times [facility] daily. docusate 2020-04 Yes [id number] 100mg Take 1 [facility] 100 mg 0-28 capsule by [facility] of capsule 00:00: mouth (two) [facility] times [facility] daily. docusate 2020-04 Yes [id number] 100mg Take 1 [facility] 100 mg 0-28 capsule by [facility] of capsule 00:00: mouth (two) [facility] times [facility] daily. docusate 2020-04 Yes [id number] 100mg Take 1 [facility] 100 mg 0-28 capsule by [facility] of capsule 00:00: mouth (two) [facility] times [facility] daily. docusate 2020-04 Yes [id number] 100mg Take 1 [facility] 100 mg 0-28 capsule by [facility] of capsule 00:00: mouth (two) [facility] times [facility] daily. docusate 2020-04 Yes [id number] 100mg Take 1 [facility] 100 mg 0-28 capsule by [facility] of capsule 00:00: mouth (two) [facility] times [facility] daily. docusate 2020-04 Yes [id number] 100mg Take 1 [facility] 100 mg 0-28 capsule by [facility] of capsule 00:00: [facility] (two) [facility] times [facility] daily. docusate 2020-04 Yes [id number] 100mg Take 1 [facility] 100 mg 0-28 capsule by [facility] of capsule 00:00: [facility] (two) [facility] times [facility] daily. docusate 2020-04 Yes [id number] 100mg Take 1 [facility] 100 mg 0-28 capsule by [facility] of capsule 00:00: [facility] (two) [facility] times [facility] daily. docusate 2020-04 Yes [id number] 100mg Take 1 [facility] 100 mg 0-28 capsule by [facility] of capsule 00:00: [facility] (two) [facility] times [facility] daily. docusate 2020-04 Yes [id number] 100mg Take 1 [facility] 100 mg 0-28 capsule by [facility] of capsule 00:00: [facility] (two) [facility] times [facility] daily. docusate 2020-04 Yes [id number] 100mg Take 1 [facility] 100 mg 0-28 capsule by [facility] of capsule 00:00: [facility] (two) [facility] times [facility] daily. docusate 2020-04 Yes [id number] 100mg Take 1 [facility] 100 mg 0-28 capsule by [facility] of capsule 00:00: [facility] (two) [facility] times [facility] daily. docusate 2020-04 Yes [id number] 100mg Take 1 [facility] 100 mg 0-28 capsule by [facility] of capsule 00:00: [facility] (two) [facility] times [facility] daily. docusate 2020-04 Yes [id number] 100mg Take 1 [facility] 100 mg 0-28 capsule by [facility] of capsule 00:00: [facility] (two) [facility] times [facility] daily. docusate 2020-04 Yes [id number] 100mg Take 1 [facility] 100 mg 0-28 capsule by [facility] of capsule 00:00: [facility] (two) [facility] times [facility] daily. docusate 2020-04 Yes [id number] 100mg Take 1 [facility] 100 mg 0-28 capsule by [facility] of capsule 00:00: [facility] (two) [facility] times [facility] daily. docusate 2020-04 Yes [id number] 100mg Take 1 [facility] 100 mg 0-28 capsule by [facility] of capsule 00:00: [facility] (two) [facility] times [facility] daily. docusate 2020-04 Yes [id number] 100mg Take 1 [facility] 100 mg 0-28 capsule by [facility] of capsule 00:00: [facility] (two) [facility] times [facility] daily. docusate 2020-04 Yes [id number] 100mg Take 1 [facility] 100 mg 0-28 capsule by [facility] of capsule 00:00: [facility] (two) [facility] times [facility] daily. docusate 2020-04 Yes [id number] 100mg Take 1 [facility] 100 mg 0-28 capsule by [facility] of capsule 00:00: [facility] (two) [facility] times [facility] daily. docusate 2020-04 Yes [id number] 100mg Take 1 [facility] 100 mg 0-28 capsule by [facility] of capsule 00:00: mouth (two) [facility] times [facility] daily. docusate 2020-04 Yes [id number] 100mg Take 1 [facility] 100 mg 0-28 capsule by [facility] of capsule 00:00: mouth 2 [place] (two) Medical times [facility] daily. docusate 2020-04 Yes [id number] 100mg Take 1 [facility] n[facility] 100 mg 0-28 capsule by [facility] of capsule 00:00: mouth 2 [place] (two) Medical times [facility] daily. docusate 2020-04 Yes [id number] 100mg Take 1 [facility] 100 mg 0-28 capsule by [facility] of capsule 00:00: mouth 2 [place] (two) Medical times [facility] daily. docusate 2020-04 Yes [id number] 100mg Take 1 [facility] 100 mg 0-28 capsule by [facility] of capsule 00:00: mouth 2 [place] (two) Medical times [facility] daily. docusate 2020-04 Yes [id number] 100mg Take 1 [facility]ivers 100 mg 0-28 capsule by [facility] of capsule 00:00: mouth 2 [place] (two) Medical times [facility] daily. docusate 2020-04 Yes [id number] 100mg Take 1 [facility] 100 mg 0-28 capsule by [facility] of capsule 00:00: mouth 2 [place] (two) Medical times [facility] daily. docusate 2020-04 Yes [id number] 100mg Take 1 [facility] 100 mg 0-28 capsule by [facility] of capsule 00:00: mouth 2 [place] (two) Medical times [facility] daily. docusate 2020-04- No [id number] 100mg Take 1 [facility] 100 mg 0-28 02-22 capsule by ity of capsule 00:00: 00:00 mouth 2 [place] 00 :00 (two) Medical times [facility] daily. docusate 2020-04- No [id number] 100mg Take 1 [facility] 100 mg 0-28 02-22 capsule by ity of capsule 00:00: 00:00 mouth 2 [place] 00 :00 (two) Medical times [facility] daily. docusate 2020-04- No [id number] 100mg Take 1 [facility] 100 mg 0-28 02-22 capsule by ity of capsule 00:00: 00:00 mouth 2 [place] 00 :00 (two) Medical times [facility] daily. gabapentin 2016-0 Yes Take by [facility] 300 mg 4-21 mouth ity of capsule 00:00: daily. [place] 00 [facility] lidocaine 5 2017-0 Yes Un[facility] s % (700 4-21 ity of mg/patch) 00:00: [place] patch 00 [facility] gabapentin 2017-0 Yes Take by [facility] 300 mg 4-21 mouth ity of capsule 00:00: daily. [place] [facility] lidocaine 5 2017-0 Yes Univer s % (700 4-21 ity of mg/patch) 00:00: [place] patch 00 [facility] gabapentin 2017-0 Yes Take by [facility] 300 mg 4-21 mouth ity of capsule 00:00: daily. [place] [facility] lidocaine 5 2017-0 Yes Univer s % (700 4-21 ity of mg/patch) 00:00: [place] patch [facility] gabapentin 2017-0 Yes Take by [facility] 300 mg 4-21 mouth ity of capsule 00:00: daily. [place] [facility] lidocaine 5 2017-0 Yes Un[facility] s % (700 4-21 ity of mg/patch) 00:00: [place] patch [facility] gabapentin 2017-0 Yes Take by [facility] 300 mg 4-21 mouth ity of capsule 00:00: daily. [place] [facility] lidocaine 5 2017-0 Yes Univer s % (700 4-21 ity of mg/patch) 00:00: [place] patch [facility] gabapentin 2017-0 Yes Take by [facility] 300 mg 4-21 mouth ity of capsule 00:00: daily. [place] [facility] lidocaine 5 2017-0 Yes Univer s % (700 4-21 ity of mg/patch) 00:00: [place] patch [facility] gabapentin 2017-0 Yes Take by [facility] 300 mg 4-21 mouth ity of capsule 00:00: daily. [place] [facility] lidocaine 5 2017-0 Yes Univer [...] 4-21 mouth ity of capsule 00:00: daily. [place] [facility] lidocaine 5 2017-0 Yes Univer [...] 4-21 mouth ity of capsule 00:00: daily. [place] [facility] lidocaine 5 2017-0 Yes Univer [...] 4-21 mouth ity of capsule 00:00: daily. [place] [facility] lidocaine 5 2017-0 Yes Univer s % (700 4-21 ity of mg/patch) 00:00: [place] patch 00 [facility] gabapentin 2017-0 Yes Take by [facility] 300 mg 4-21 mouth ity of capsule 00:00: daily. [place] [facility] lidocaine 5 2017-0 Yes Un[facility] % (700 4-21 ity of mg/patch) 00:00: [place] patch [facility] gabapentin 2017-0 Yes Take by [facility] 300 mg 4-21 mouth ity of capsule 00:00: daily. [place] [facility] lidocaine 5 2017-0 Yes Un[facility] % (700 4-21 ity of mg/patch) 00:00: [place] patch [facility] gabapentin 2017-0 Yes Take by [facility] 300 mg 4-21 mouth ity of capsule 00:00: daily. [place] [facility] lidocaine 5 2017-0 Yes Univer [facility] % (700 4-21 ity of mg/patch) 00:00: [place] patch [facility] gabapentin 2017-0 Yes Take by [facility] 300 mg 4-21 mouth ity of capsule 00:00: daily. [place] [facility] lidocaine 5 2017-0 Yes Un[facility] % (700 4-21 ity of mg/patch) 00:00: [place] patch [facility] gabapentin 2017-0 Yes Take by [facility] 300 mg 4-21 mouth ity of capsule 00:00: daily. [place] [facility] lidocaine 5 2017-0 Yes Univer [...] 4-21 mouth ity of capsule 00:00: daily. [place] [facility] lidocaine 5 2017-0 Yes Univer [...] 4-21 mouth ity of capsule 00:00: daily. [place] [facility] lidocaine 5 2017-0 Yes Univer [...] 4-21 mouth ity of capsule 00:00: daily. [place] [facility] lidocaine 5 2017-0 Yes Univer s % (700 4-21 ity of mg/patch) 00:00: [place] patch 00 [facility] gabapentin 2017-0 Yes Take by [facility] 300 mg 4-21 mouth ity of capsule 00:00: daily. [place] [facility] lidocaine 5 2017-0 Yes Un[facility] % (700 4-21 ity of mg/patch) 00:00: [place] patch [facility] gabapentin 2017-0 Yes Take by [facility] 300 mg 4-21 mouth ity of capsule 00:00: daily. [place] [facility] lidocaine 5 2017-0 Yes Univer [facility] % (700 4-21 ity of mg/patch) 00:00: [place] patch [facility] gabapentin 2017-0 Yes Take by [facility] 300 mg 4-21 mouth ity of capsule 00:00: daily. [place] [facility] lidocaine 5 2017-0 Yes Un[facility] s % (700 4-21 ity of mg/patch) 00:00: [place] patch [facility] gabapentin 2017-0 Yes Take by [facility] 300 mg 4-21 mouth ity of capsule 00:00: daily. [place] [facility] lidocaine 5 2017-0 Yes Univer s % (700 4-21 ity of mg/patch) 00:00: [place] patch [facility] gabapentin 2017-0 Yes Take by [facility] 300 mg 4-21 mouth ity of capsule 00:00: daily. [place] [facility] lidocaine 5 2017-0 Yes Univer [...] 4-21 mouth ity of capsule 00:00: daily. [place] [facility] lidocaine 5 2017-0 Yes Univer [...] 4-21 mouth ity of capsule 00:00: daily. [place] [facility] lidocaine 5 2017-0 Yes Univer [...] 4-21 mouth ity of capsule 00:00: daily. [place] [facility] lidocaine 5 2017-0 Yes Univer s % (700 4-21 ity of mg/patch) 00:00: [place] patch 00 [facility] gabapentin 2017-0 Yes Take by [facility] 300 mg 4-21 mouth ity of capsule 00:00: daily. [place] [facility] lidocaine 5 2017-0 Yes Univer s % (700 4-21 ity of mg/patch) 00:00: [place] patch [facility] gabapentin 2017-0 Yes Take by [facility] 300 mg 4-21 mouth ity of capsule 00:00: daily. [place] [facility] lidocaine 5 2017-0 Yes Univer s % (700 4-21 ity of mg/patch) 00:00: [place] patch [facility] gabapentin 2017-0 Yes Take by [facility] 300 mg 4-21 mouth ity of capsule 00:00: daily. [place] [facility] lidocaine 5 2017-0 Yes Univer s % (700 4-21 ity of mg/patch) 00:00: [place] patch [facility] gabapentin 2017-0 Yes Take by [facility] 300 mg 4-21 mouth ity of capsule 00:00: daily. [place] [facility] lidocaine 5 2017-0 Yes Univer s % (700 4-21 ity of mg/patch) 00:00: [place] patch [facility] gabapentin 2017-0 Yes Take by [facility] 300 mg 4-21 mouth ity of capsule 00:00: daily. [place] [facility] lidocaine 5 2017-0 Yes Univer [...] 4-21 mouth ity of capsule 00:00: daily. [place] [facility] lidocaine 5 2017-0 Yes Univer [...] 4-21 mouth ity of capsule 00:00: daily. [place] [facility] lidocaine 5 2017-0 Yes Univer [...] 4-21 mouth ity of capsule 00:00: daily. [place] [facility] lidocaine 5 2017-0 Yes Univer s % (700 4-21 ity of mg/patch) 00:00: [place] patch 00 [facility] gabapentin 2017-0 Yes Take by [facility] 300 mg 4-21 mouth ity of capsule 00:00: daily. [place] [facility] lidocaine 5 2017-0 Yes Univer s % (700 4-21 ity of mg/patch) 00:00: [place] patch [facility] gabapentin 2017-0 Yes Take by [facility] 300 mg 4-21 mouth ity of capsule 00:00: daily. [place] [facility] lidocaine 5 2017-0 Yes Univer s % (700 4-21 ity of mg/patch) 00:00: [place] patch [facility] gabapentin 2017-0 Yes Take by [facility] 300 mg 4-21 mouth ity of capsule 00:00: daily. [place] [facility] lidocaine 5 2017-0 Yes Univer s % (700 4-21 ity of mg/patch) 00:00: [place] patch [facility] gabapentin 2017-0 Yes Take by [facility] 300 mg 4-21 mouth ity of capsule 00:00: daily. [place] [facility] lidocaine 5 2017-0 Yes Univer s % (700 4-21 ity of mg/patch) 00:00: [place] patch [facility] gabapentin 2017-0 Yes Take by [facility] 300 mg 4-21 mouth ity of capsule 00:00: daily. [place] [facility] lidocaine 5 2017-0 Yes Univer [...] 4-21 mouth ity of capsule 00:00: daily. [place] [facility] lidocaine 5 2017-0 Yes Univer [...] 4-21 mouth ity of capsule 00:00: daily. [place] [facility] lidocaine 5 2017-0 Yes Univer [...] 4-21 mouth ity of capsule 00:00: daily. [place] [facility] lidocaine 5 2017-0 Yes Univer s % (700 4-21 ity of mg/patch) 00:00: [place] patch 00 [facility] gabapentin 2017-0 Yes Take by [facility] 300 mg 4-21 mouth ity of capsule 00:00: daily. [place] [facility] lidocaine 5 2017-0 Yes Univer s % (700 4-21 ity of mg/patch) 00:00: [place] patch 00 [facility] gabapentin 2017-0 Yes Take by [facility] 300 mg 4-21 mouth ity of capsule 00:00: daily. [place] [facility] lidocaine 5 2016-0 Yes Univer s % (700 4-21 ity of mg/patch) 00:00: [place] patch [facility] gabapentin 2017-0 2022- No Take by [facility] vers 300 mg 4-21 09-29 mouth ity of capsule 00:00: 00:00 daily. [place] 00 :00 [facility] lidocaine 5 2016-0 2022- No Unive rs % (700 4-21 -29 ity of mg/patch) 00:00: 00:00 [place] patch 00 :00 [facility] pantoprazol 2017-0 Yes Univer s e 40 mg EC 4-14 ity of tablet 00:00: [place] [facility] pantoprazol 2017-0 Yes Univer s e 40 mg EC 4-14 ity of tablet 00:00: [place] [facility] pantoprazol 2017-0 Yes Univer s e 40 mg EC 4-14 ity of tablet 00:00: [place] [facility] pantoprazol 2017-0 Yes Univer s e 40 mg EC 4-14 ity of tablet 00:00: [place] [facility] pantoprazol 2017-0 Yes Univer s e 40 mg EC 4-14 ity of tablet 00:00: [place] [facility] pantoprazol 2017-0 Yes Univer s e 40 mg EC 4-14 ity of tablet 00:00: [place] [facility] pantoprazol 2017-0 Yes Univer s e 40 mg EC 4-14 ity of tablet 00:00: [place] [facility] pantoprazol 2017-0 Yes Univer s e 40 mg EC 4-14 ity of tablet 00:00: [place] 00 [facility] pantoprazol 2017-0 Yes Univer s e 40 mg EC 4-14 ity of tablet 00:00: [place] [facility] pantoprazol 2017-0 Yes Univer s e 40 mg EC 4-14 ity of tablet 00:00: [place] [facility] pantoprazol 2017-0 Yes Univer s e 40 mg EC 4-14 ity of tablet 00:00: [place] [facility] pantoprazol 2017-0 Yes Univer s e 40 mg EC 4-14 ity of tablet 00:00: [place] [facility] pantoprazol 2017-0 Yes Univer s e 40 mg EC 4-14 ity of tablet 00:00: [place] [facility] pantoprazol 2017-0 Yes Univer s e 40 mg EC 4-14 ity of tablet 00:00: [place] [facility] pantoprazol 2017-0 Yes Univer s e 40 mg EC 4-14 ity of tablet 00:00: [place] [facility] pantoprazol 2017-0 Yes Univer s e 40 mg EC 4-14 ity of tablet 00:00: [place] [facility] pantoprazol 2017-0 Yes Univer s e 40 mg EC 4-14 ity of tablet 00:00: [place] [facility] pantoprazol 2017-0 Yes Univer s e 40 mg EC 4-14 ity of tablet 00:00: [place] [facility] pantoprazol 2017-0 Yes Univer s e 40 mg EC 4-14 ity of tablet 00:00: [place] [facility] pantoprazol 2017-0 Yes Univer s e 40 mg EC 4-14 ity of tablet 00:00: [place] [facility] pantoprazol 2017-0 Yes Univer s e 40 mg EC 4-14 ity of tablet 00:00: [place] [facility] pantoprazol 2017-0 Yes Univer s e 40 mg EC 4-14 ity of tablet 00:00: [place] [facility] pantoprazol 2017-0 Yes Univer s e 40 mg EC 4-14 ity of tablet 00:00: [place] [facility] pantoprazol 2017-0 Yes Univer s e 40 mg EC 4-14 ity of tablet 00:00: [place] [facility] pantoprazol 2017-0 Yes Univer s e 40 mg EC 4-14 ity of tablet 00:00: [place] [facility] pantoprazol 2017-0 Yes Univer s e 40 mg EC 4-14 ity of tablet 00:00: [place] [facility] pantoprazol 2017-0 Yes Univer s e 40 mg EC 4-14 ity of tablet 00:00: [place] [facility] pantoprazol 2017-0 Yes Univer s e 40 mg EC 4-14 ity of tablet 00:00: [place] [facility] pantoprazol 2017-0 Yes Univer s e 40 mg EC 4-14 ity of tablet 00:00: [place] [facility] pantoprazol 2017-0 Yes Univer s e 40 mg EC 4-14 ity of tablet 00:00: [place] [facility] pantoprazol 2017-0 Yes Univer s e 40 mg EC 4-14 ity of tablet 00:00: [place] [facility] pantoprazol 2017-0 Yes Univer s e 40 mg EC 4-14 ity of tablet 00:00: [place] [facility] pantoprazol 2017-0 Yes Univer s e 40 mg EC 4-14 ity of tablet 00:00: [place] [facility] pantoprazol 2017-0 Yes Univer s e 40 mg EC 4-14 ity of tablet 00:00: [address] pantoprazol 2017-0 Yes Univer s e 40 mg EC 4-14 ity of tablet 00:00: [place] [facility] pantoprazol 2017-0 Yes Univer s e 40 mg EC 4-14 ity of tablet 00:00: [place] [facility] pantoprazol 2017-0 Yes Univer s e 40 mg EC 4-14 ity of tablet 00:00: [place] [facility] pantoprazol 2017-0 Yes Univer s e 40 mg EC 4-14 ity of tablet 00:00: [place] [facility] pantoprazol 2017-0 Yes Univer s e 40 mg EC 4-14 ity of tablet 00:00: [place] [facility] pantoprazol 2017-0 Yes Univer s e 40 mg EC 4-14 ity of tablet 00:00: [place] [facility] pantoprazol 2017-0 Yes Univer s e 40 mg EC 4-14 ity of tablet 00:00: [place] [facility] pantoprazol 2017-0 Yes Univer s e 40 mg EC 4-14 ity of tablet 00:00: [place] 00 [facility] pantoprazol 2017-0 Yes Univer s e 40 mg EC 4-14 ity of tablet 00:00: [place] [facility] pantoprazol 2017-0 Yes Univer s e 40 mg EC 4-14 ity of tablet 00:00: [place] [facility] pantoprazol 2017-0 Yes Univer s e 40 mg EC 4-14 ity of tablet 00:00: [place] [facility] pantoprazol 2017-0 Yes Univer s e 40 mg EC 4-14 ity of tablet 00:00: [place] [facility] pantoprazol 2017-0 Yes Univer s e 40 mg EC 4-14 ity of tablet 00:00: [place] [facility] pantoprazol 2017-0 Yes Univer s e 40 mg EC 4-14 ity of tablet 00:00: [place] [facility] pantoprazol 2017-0 Yes Univer s e 40 mg EC 4-14 ity of tablet 00:00: [place] [facility] pantoprazol 2017-0 Yes Univer s e 40 mg EC 4-14 ity of tablet 00:00: [place] [facility] pantoprazol 2017-0 Yes Univer s e 40 mg EC 4-14 ity of tablet 00:00: [address] pantoprazol 2017-0 Yes Univer s e 40 mg EC 4-14 ity of tablet 00:00: [address] pantoprazol 2017-0 Yes Univer s e 40 mg EC 4-14 ity of tablet 00:00: [address] Branch pantoprazol 2017-0 Yes Univer s e 40 mg EC 4-14 ity of tablet 00:00: [place] [facility] pantoprazol 2017-0 Yes Univer s e 40 mg EC 4-14 ity of tablet 00:00: [place] [facility] pantoprazol 2017-0 Yes Univer s e 40 mg EC 4-14 ity of tablet 00:00: [place] [facility] pantoprazol 2017-0 Yes Univer s e 40 mg EC 4-14 ity of tablet 00:00: [place] [facility] pantoprazol 2017-0 Yes Univer s e 40 mg EC 4-14 ity of tablet 00:00: [place] [facility] pantoprazol 2017-0 Yes Univer s e 40 mg EC 4-14 ity of tablet 00:00: [place] 00 [facility] pantoprazol 2017-0 Yes Univer s e 40 mg EC 4-14 ity of tablet 00:00: [place] 00 [facility] pantoprazol 2017-0 Yes Univer s e 40 mg EC 4-14 ity of tablet 00:00: [place] [facility] pantoprazol 2017-0 Yes Univer s e 40 mg EC 4-14 ity of tablet 00:00: [place] [facility] pantoprazol 2017-0 Yes Univer s e 40 mg EC 4-14 ity of tablet 00:00: [place] [facility] pantoprazol 2017-0 Yes Univer s e 40 mg EC 4-14 ity of tablet 00:00: [place] [facility] pantoprazol 2017-0 Yes Univer s e 40 mg EC 4-14 ity of tablet 00:00: [place] [facility] pantoprazol 2017-0 Yes Univer s e 40 mg EC 4-14 ity of tablet 00:00: [place] [facility] pantoprazol 2017-0 Yes Univer s e 40 mg EC 4-14 ity of tablet 00:00: [place] [facility] pantoprazol 2017-0 Yes Univer s e 40 mg EC 4-14 ity of tablet 00:00: [place] [facility] pantoprazol 2017-0 Yes Univer s e 40 mg EC 4-14 ity of tablet 00:00: [place] [facility] pantoprazol 2017-0 Yes Univer s e 40 mg EC 4-14 ity of tablet 00:00: [place] [facility] pantoprazol 2017-0 Yes Univer s e 40 mg EC 4-14 ity of tablet 00:00: [place] [facility] pantoprazol 2017-0 Yes Univer s e 40 mg EC 4-14 ity of tablet 00:00: [place] [facility] pantoprazol 2017-0 Yes Univer s e 40 mg EC 4-14 ity of tablet 00:00: [place] [facility] pantoprazol 2017-0 Yes Univer s e 40 mg EC 4-14 ity of tablet 00:00: [place] [facility] pantoprazol 2017-0 Yes Univer s e 40 mg EC 4-14 ity of tablet 00:00: [place] [facility] pantoprazol 2017-0 Yes Univer s e 40 mg EC 4-14 ity of tablet 00:00: [place] [facility] pantoprazol 2017-0 Yes Univer s e 40 mg EC 4-14 ity of tablet 00:00: [place] 00 [facility] pantoprazol 2017-0 Yes Univer s e 40 mg EC 4-14 ity of tablet 00:00: [place] [facility] pantoprazol 2017-0 Yes Univer s e 40 mg EC 4-14 ity of tablet 00:00: [place] [facility] pantoprazol 2017-0 Yes Univer s e 40 mg EC 4-14 ity of tablet 00:00: [place] [facility] pantoprazol 2017-0 Yes Univer s e 40 mg EC 4-14 ity of tablet 00:00: [place] [facility] pantoprazol 2017-0 Yes Univer s e 40 mg EC 4-14 ity of tablet 00:00: [place] [facility] pantoprazol 2017-0 Yes Univer s e 40 mg EC 4-14 ity of tablet 00:00: [address] pantoprazol 2017-0 Yes Univer s e 40 mg EC 4-14 ity of tablet 00:00: [place] [facility] pantoprazol 2017-0 Yes Univer s e 40 mg EC 4-14 ity of tablet 00:00: [address] pantoprazol 2017-0 Yes Univer s e 40 mg EC 4-14 ity of tablet 00:00: [place] [facility] pantoprazol 2017-0 Yes Univer s e 40 mg EC 4-14 ity of tablet 00:00: [place] [facility] pantoprazol 2017-0 Yes Univer s e 40 mg EC 4-14 ity of tablet 00:00: [place] [facility] pantoprazol 2017-0 Yes Univer s e 40 mg EC 4-14 ity of tablet 00:00: [place] [facility] pantoprazol 2017-0 Yes Univer s e 40 mg EC 4-14 ity of tablet 00:00: [place] [facility] pantoprazol 2017-0 Yes Univer s e 40 mg EC 4-14 ity of tablet 00:00: [place] [facility] pantoprazol 2017-0 Yes Univer s e 40 mg EC 4-14 ity of tablet 00:00: [place] [facility] pantoprazol 2017-0 Yes Univer s e 40 mg EC 4-14 ity of tablet 00:00: [place] [facility] pantoprazol 2017-0 Yes Univer s e 40 mg EC 4-14 ity of tablet 00:00: [place] 00 [facility] pantoprazol 2017-0 Yes Univer s e 40 mg EC 4-14 ity of tablet 00:00: [place] [facility] pantoprazol 2017-0 Yes Univer s e 40 mg EC 4-14 ity of tablet 00:00: [place] [facility] pantoprazol 2017-0 Yes Univer s e 40 mg EC 4-14 ity of tablet 00:00: [place] [facility] pantoprazol 2017-0 Yes Univer s e 40 mg EC 4-14 ity of tablet 00:00: [place] [facility] pantoprazol 2017-0 Yes Univer s e 40 mg EC 4-14 ity of tablet 00:00: [place] [facility] pantoprazol 2017-0 Yes Univer s e 40 mg EC 4-14 ity of tablet 00:00: [place] [facility] pantoprazol 2017-0 Yes Univer s e 40 mg EC 4-14 ity of tablet 00:00: [address] pantoprazol 2017-0 Yes Univer s e 40 mg EC 4-14 ity of tablet 00:00: [place] [facility] pantoprazol 2017-0 Yes Univer s e 40 mg EC 4-14 ity of tablet 00:00: [address] pantoprazol 2017-0 Yes Univer s e 40 mg EC 4-14 ity of tablet 00:00: [place] [facility] pantoprazol 2017-0 Yes Univer s e 40 mg EC 4-14 ity of tablet 00:00: [place] [facility] pantoprazol 2017-0 Yes Univer s e 40 mg EC 4-14 ity of tablet 00:00: [place] [facility] pantoprazol 2017-0 Yes Univer s e 40 mg EC 4-14 ity of tablet 00:00: [place] [facility] pantoprazol 2017-0 Yes Univer s e 40 mg EC 4-14 ity of tablet 00:00: [place] [facility] pantoprazol 2017-0 Yes Univer s e 40 mg EC 4-14 ity of tablet 00:00: [place] [facility] pantoprazol 2017-0 Yes Univer s e 40 mg EC 4-14 ity of tablet 00:00: [place] [facility] pantoprazol 2017-0 Yes Univer s e 40 mg EC 4-14 ity of tablet 00:00: [place] [facility] pantoprazol 2017-0 Yes Univer s e 40 mg EC 4-14 ity of tablet 00:00: [place] [facility] pantoprazol 2017-0 Yes Univer s e 40 mg EC 4-14 ity of tablet 00:00: [place] [facility] pantoprazol 2017-0 Yes Univer s e 40 mg EC 4-14 ity of tablet 00:00: [place] [facility] pantoprazol 2017-0 Yes Univer s e 40 mg EC 4-14 ity of tablet 00:00: [place] [facility] pantoprazol 2017-0 Yes Univer s e 40 mg EC 4-14 ity of tablet 00:00: [place] [facility] pantoprazol 2017-0 Yes Univer s e 40 mg EC 4-14 ity of tablet 00:00: [place] [facility] pantoprazol 2017-0 Yes Univer s e 40 mg EC 4-14 ity of tablet 00:00: [place] [facility] pantoprazol 2017-0 Yes Univer s e 40 mg EC 4-14 ity of tablet 00:00: [place] [facility] pantoprazol 2017-0 Yes Univer s e 40 mg EC 4-14 ity of tablet 00:00: [place] [facility] pantoprazol 2017-0 Yes Univer s e 40 mg EC 4-14 ity of tablet 00:00: [place] [facility] pantoprazol 2017-0 Yes Univer s e 40 mg EC 4-14 ity of tablet 00:00: [place] [facility] pantoprazol 2017-0 Yes Univer s e 40 mg EC 4-14 ity of tablet 00:00: [place] [facility] pantoprazol 2017-0 Yes Univer s e 40 mg EC 4-14 ity of tablet 00:00: [place] [facility] pantoprazol 2017-0 Yes Univer s e 40 mg EC 4-14 ity of tablet 00:00: [facility] pantoprazol 2017-0 Yes Univer s e 40 mg EC 4-14 ity of tablet 00:00: [place] [facility] pantoprazol 2017-0 Yes Univer s e 40 mg EC 4-14 ity of tablet 00:00: [place] [facility] pantoprazol 2017-0 Yes Univer s e 40 mg EC 4-14 ity of tablet 00:00: [place] [facility] pantoprazol 2017-0 Yes Univer s e 40 mg EC 4-14 ity of tablet 00:00: [place] [facility] pantoprazol 2017-0 2023- No Unive rs e 40 mg EC [...] 00:00: 00:00 mouth [place] 00 :00 daily. [facility] Immunizations Ordered Filled Date Status Comments [...] Completed Universit y of Vaccine (3+ yrs) [facility] dical Branch Pneumococcal Unknown Completed University o f Polysaccharide, [place] Med ical PPSV23 (PNEUMOVAX) Branch Influenza Virus Unknown Completed Universit y of Vaccine,quad [place] Med[facility] Im,preserve Free Branch 65+ (FLUAD) Influenza Virus Unknown Completed Universit y of Vaccine (3+ yrs) [facility] dical Branch Pneumococcal Unknown Completed University o f Polysaccharide, [place] [facility] ical PPSV23 (PNEUMOVAX) Branch Influenza Virus Unknown Completed Universit y of Vaccine,quad [place] Medica [facility] Im,preserve Free Branch 65+ (FLUAD) Influenza Virus Unknown Completed Universit y of Vaccine (3+ yrs) [facility] dical Branch Pneumococcal Unknown Completed University o f Polysaccharide, [place] [facility] ical PPSV23 (PNEUMOVAX) Branch Influenza Virus Unknown Completed Universit y of Vaccine,quad [place] Medica [facility] Im,preserve Free Branch 65+ (FLUAD) Influenza Virus Unknown Completed Universit y of Vaccine,quad [place] Medica [facility] Im,preserve Free Branch 65+ (FLUAD) Influenza Virus Unknown Completed Universit y of Vaccine (3+ yrs) [facility] dical Branch Pneumococcal Unknown Completed University o f Polysaccharide, [place] Med ical PPSV23 (PNEUMOVAX) Branch Influenza Virus Unknown Completed Universit y of Vaccine,quad [place] [facility]ica [facility] Im,preserve Free Branch 65+ (FLUAD) Influenza Virus Unknown Completed Universit y of Vaccine,quad [place] Medica [facility] Im,preserve Free Branch 65+ (FLUAD) Influenza Virus Unknown Completed Universit y of Vaccine (3+ yrs) [place] dical [facility] Pneumococcal Unknown Completed University o f Polysaccharide, [place] [facility] ical PPSV23 (PNEUMOVAX) Branch Influenza Virus Unknown Completed Universit y of Vaccine,quad [place] Medica [facility] Im,preserve Free Branch 65+ (FLUAD) Influenza Virus Unknown Completed Universit y of Vaccine,quad [place] Medica [facility] Im,preserve Free Branch 65+ (FLUAD) Influenza Virus Unknown Completed Universit y of Vaccine (3+ yrs) [place] dical [facility] Pneumococcal Unknown Completed University o f Polysaccharide, [place] Med ical PPSV23 (PNEUMOVAX) Branch Influenza Virus Unknown Completed Universit y of Vaccine,quad [place] Medica l Im,preserve Free Branch 65+ (FLUAD) Influenza Virus Unknown Completed Universit y of Vaccine,quad [place] Medica l Im,preserve Free Branch 65+ (FLUAD) Influenza Virus Unknown Completed Universit y of Vaccine (3+ yrs) [facility] dical Branch Pneumococcal Unknown Completed University o f Polysaccharide, [place] Med ical PPSV23 (PNEUMOVAX) Branch Influenza Virus Unknown Completed Universit y of Vaccine,quad [place] Medica l Im,preserve Free Branch 65+ (FLUAD) Vital Signs Vital Name Observation Time Observation Value Comments Source Systolic blood 2023-02-03 16:24:00 110 [facility] Diastolic blood 2023-02-03 16:24:00 43 [facility]Hg[facility] Heart rate 2023-02-03 16:24:00 43 /min [facility] Body temperature 2023-02-03 16:24:00 36.5 Allie [facility] Respiratory rate 2023-02-03 16:24:00 18 /min [facility] Oxygen saturation in 2023-02-03 16:24:00 96 /min [facility] Arterial blood by [facility] Pulse oximetry Branch Body weight 2023-02-03 08:50:00 53.479 kg [facility] BMI 2023-02-03 08:50:00 20.89 kg/m2 [facility] Body height 2023-02-02 20:58:00 160 cm [facility] [place] [facility] Systolic blood 2023-01-11 20:54:00 123 mm[Hg] Univer sity of pressure [place] [facility] Diastolic blood 2023-01-11 20:54:00 53 mm[Hg] Unive rsity of pressure [place] [facility] Heart rate 2023-01-11 20:54:00 63 /min [facility] [place] [facility] Body temperature 2023-01-11 20:54:00 36.22 Allie [facility] ers[facility] [place] [facility] Respiratory rate 2023-01-11 20:54:00 18 /min Univ ersity [facility] [place] [facility] Oxygen saturation in 2023-01-11 20:54:00 99 /min University of Arterial blood by [employer] [facility] Pulse oximetry Branch Body weight 2023-01-11 09:14:00 44.316 kg [facility] [place] [facility] BMI 2023-01-11 09:14:00 17.31 kg/m2 [facility] [place] [facility] Body height 2023-01-09 20:32:00 160 cm [facility] [place] [facility] Systolic blood 2022-12-20 20:44:00 139 mm[Hg] Univer sity of pressure [place] [facility] Diastolic blood 2022-12-20 20:44:00 60 mm[Hg] Unive rsity of pressure [facility] Heart rate 2022-12-20 20:44:00 53 /min [facility] [place] [facility] Body height 2022-12-20 20:44:00 160 cm [facility] [place] [facility] Body weight 2022-12-20 20:44:00 44.815 kg [facility] [place] [facility] BMI 2022-12-20 20:44:00 17.50 kg/m2 [facility] [place] [facility] Oxygen saturation in 2022-12-20 20:41:00 100 /min University of Arterial blood by [employer] tyrone Pulse oximetry Branch Systolic blood 2022-08-28 18:09:00 134 mm[Hg] Univer sity of pressure [place] [facility] Diastolic blood 2022-08-28 18:09:00 72 mm[Hg] Unive rsity of pressure [place] [facility] Heart rate 2022-08-28 18:09:00 71 /min [facility] [place] [facility] Respiratory rate 2022-08-28 18:09:00 19 /min Univ ers[facility] [place] [facility] Body height 2022-08-28 18:09:00 160 cm [facility] [place] [facility] Body weight 2022-08-28 18:09:00 46.63 kg [facility] [place] [facility] BMI 2022-08-28 18:09:00 18.21 kg/m2 [facility] [place] [facility] Oxygen saturation in 2022-08-28 18:09:00 98 /min University of Arterial blood by [place] [employer] [facility] Pulse oximetry Branch Systolic blood 2022-06-25 15:38:00 137 mm[Hg] Univer sity of pressure [place] [facility] Diastolic blood 2022-06-25 15:38:00 46 mm[Hg] Unive rsity of pressure [place] [facility] Heart rate 2022-06-25 15:38:00 56 /min [facility] [place] [facility] Body temperature 2022-06-25 15:38:00 36.11 Allie Univ [facility] [place] [facility] Respiratory rate 2022-06-25 15:38:00 17 /min Univ ers[facility] [place] [facility] Body height 2022-06-25 15:38:00 160 cm [facility] [place] [facility] Body weight 2022-06-25 15:38:00 46.494 kg [facility] [place] [facility] BMI 2022-06-25 15:38:00 18.16 kg/m2 [facility] [place] [facility] Systolic blood 2022-06-12 13:39:00 124 mm[Hg] Univer sity of pressure [place] [facility] Diastolic blood 2022-06-12 13:39:00 56 mm[Hg] Unive rsity of pressure [place] [facility] Heart rate 2022-06-12 13:39:00 74 /min [facility] [place] [facility] Body temperature 2022-06-12 13:39:00 36.67 Allie [facility] [place] [facility] Respiratory rate 2022-06-12 13:39:00 18 /min Univ ers[facility] [place] [facility] Oxygen saturation in 2022-06-12 13:39:00 100 /min University of Arterial blood by [place] [employer] [facility] Pulse oximetry Branch Body weight 2022-06-12 10:12:00 46.494 kg [facility] [place] [facility] BMI 2022-06-12 10:12:00 18.16 kg/m2 [facility] [place] [facility] Body height 2022-06-06 23:33:00 160 cm [facility] [place] [facility] HEIGHT 2022-05-18 09:00:00 160 cm WEIGHT 2022-05-18 09:00:00 47.9 kg HEIGHT 2022-05-18 09:00:00 160 cm WEIGHT 2022-05-18 09:00:00 47.9 kg HEIGHT 2022-05-18 09:00:00 160 cm WEIGHT 2022-05-18 09:00:00 47.9 kg Systolic blood 2022-05-10 17:56:00 153 mm[Hg] Univer sity of pressure [place] [facility] Diastolic blood 2022-05-10 17:56:00 47 mm[Hg] Unive rsity of pressure [facility] Heart rate 2022-05-10 17:54:00 68 /min [facility] [place] [facility] Respiratory rate 2022-05-10 17:54:00 20 /min Univ ers[facility] [place] [facility] Body height 2022-05-10 17:54:00 160 cm [facility] [place] [facility] Body weight 2022-05-10 17:54:00 46.085 kg [facility] [place] [facility] BMI 2022-05-10 17:54:00 18.00 kg/m2 [facility] [place] [facility] Oxygen saturation in 2022-05-10 17:54:00 99 /min University of Arterial blood by [facility] Pulse oximetry Branch Systolic blood 2022-02-28 19:10:00 161 mm[Hg] Univer sity of pressure [place] [facility] Diastolic blood 2022-02-28 19:10:00 59 mm[Hg] Unive rsity of pressure [place] [facility] Heart rate 2022-02-28 19:10:00 50 /min [facility] [place] [facility] Oxygen saturation in 2022-02-28 19:10:00 100 /min University of Arterial blood by [facility] Pulse oximetry Branch Body temperature 2022-02-28 19:08:00 36.11 Allie [facility] [place] [facility] Respiratory rate 2022-02-28 19:08:00 16 /min Univ [facility] [place] [facility] Body weight 2022-02-28 19:08:00 49.125 kg [facility] [place] [facility] BMI 2022-02-28 19:08:00 19.18 kg/m2 Universi ty of [facility] Systolic blood 2022-06-25 15:38:00 137 mm[Hg] Univer sity of pressure [facility] Diastolic blood 2022-06-25 15:38:00 46 mm[Hg] Unive rsity of pressure [facility] Heart rate 2022-06-25 15:38:00 56 /min Universi ty of [facility] Body temperature 2022-06-25 15:38:00 36.11 Allie Univ ersity of [facility] Respiratory rate 2022-06-25 15:38:00 17 /min Univ ersity of [facility] Body height 2022-06-25 15:38:00 160 cm Universi ty of [facility] Body weight 2022-06-25 15:38:00 46.494 kg Universi ty of [facility] BMI 2022-06-25 15:38:00 18.16 kg/m2 Universi ty of [facility] Systolic blood 2022-06-12 13:39:00 124 mm[Hg] Univer sity of pressure [facility] Diastolic blood 2022-06-12 13:39:00 56 mm[Hg] Unive rsity of pressure [facility] Heart rate 2022-06-12 13:39:00 74 /min Universi ty of [facility] Body temperature 2022-06-12 13:39:00 36.67 Allie Univ ersity of [facility] Respiratory rate 2022-06-12 13:39:00 18 /min [facility] ersity of [facility] Oxygen saturation in 2022-06-12 13:39:00 100 /min [facility] Arterial blood by [facility] Pulse oximetry Branch Body weight 2022-06-12 10:12:00 46.494 kg [facility] [place] [facility] [place] BMI 2022-06-12 10:12:00 18.16 kg/m2 Universi ty of [facility] Body height 2022-06-06 23:33:00 160 cm Universi ty of [facility] Systolic blood 2022-05-27 16:06:00 109 mm[Hg] [facility] pressure Medical Center Diastolic blood 2022-05-27 16:06:00 53 mm[Hg] [facility] Heart rate 2022-05-27 16:03:00 69 /min [facility] Body temperature 2022-05-27 16:03:00 37.11 Allie [facility] Respiratory rate 2022-05-27 16:03:00 17 /min [facility] Oxygen saturation in 2022-05-27 16:03:00 96 /min [facility] Arterial blood by Medical Ce nter Pulse oximetry Systolic blood 2022-05-24 07:00:00 117 mm[Hg] [facility] Diastolic blood 2022-05-24 07:00:00 73 mm[Hg] [facility] Heart rate 2022-05-24 07:00:00 81 /min [facility] Body temperature 2022-05-24 07:00:00 36.67 Allie [facility] Respiratory rate 2022-05-24 07:00:00 15 /min [facility] Oxygen saturation in 2022-05-24 07:00:00 96 /min [facility] Arterial blood by Medical Ce nter Pulse oximetry Systolic blood 2022-05-22 08:00:00 126 mm[Hg] [facility] Diastolic blood 2022-05-22 08:00:00 62 mm[Hg] [facility] Heart rate 2022-05-22 08:00:00 63 /min [facility] Respiratory rate 2022-05-22 08:00:00 24 /min [facility] Oxygen saturation in 2022-05-22 08:00:00 98 /min [facility] Arterial blood by Medical Ce nter Pulse oximetry Body temperature 2022-05-21 16:00:00 36.67 Allie [facility] Systolic blood 2022-05-21 08:23:00 127 mm[Hg] [facility] Diastolic blood 2022-05-21 08:23:00 65 mm[Hg] [facility] Heart rate 2022-05-21 07:30:00 76 /min [facility] Respiratory rate 2022-05-21 07:30:00 17 /min [facility] Oxygen saturation in 2022-05-21 07:30:00 98 /min [facility] Arterial blood by Medical Ce nter Pulse oximetry Body temperature 2022-05-21 00:00:00 36.17 Allie [facility] Body height 2022-05-18 09:00:00 160 cm [facility] Body weight 2022-05-18 09:00:00 47.9 kg [facility] BMI 2022-05-18 09:00:00 18.71 kg/m2 [facility] Procedures Procedure Date / Time Performing Clinician Source Performed TROPONIN I 2023-02-03 08:34:00 [facility] PROTHROMBIN TIME / INR 2023-02-03 08:34:00 Jose Villa [facility] TROPONIN I 2023-02-03 01:17:00 Am[facility] XR FEMUR 2 VW LEFT 2023-02-02 22:37:[address] [facility] CREATINE KINASE 2023-02-02 17:37:00 Mazin Merrill [facility] MAGNESIUM 2023-02-02 17:37:00 Garfield [facility] TROPONIN I 2023-02-02 17:37:00 Garfield [facility] COMP. METABOLIC PANEL 2023-02-02 17:37:00 Mazin Merrill [facility] ([id number]) [facility] CBC WITH DIFF 2023-02-02 17:37:00 Mazin Merrill [facility] PROTHROMBIN TIME / INR 2023-02-02 17:37:[address] [facility] ACTIVATED PARTIAL 2023-02-02 17:37:00 Mazin Merrill [facility]MIN[facility] PRO-BNP 2023-02-02 17:37:00 Mazin Merrill [facility] URINE DRUG (IMMUNOASSAY) 2023-02-02 17:35:00 Mazin Merrill [facility] nch SCREEN URINALYSIS 2023-02-02 17:35:00 Mazin Merrill [facility] RAPID INFLUENZA A/B 2023-02-02 17:35:00 Mazin Merrill [facility] COVID-19 (ID NOW RAPID 2023-02-02 17:35:00 Mazin Merrill [facility] TESTING) Medical Branch XR CHEST 1 VW 2023-02-02 17:24:07 Mazin Merrill [place] [facility] HB ECG ROUTINE & RHYTHM 2023-02-02 17:20:15 Mazin Merrill [facility] Branch CONSENT/REFUSAL FOR 2023-02-02 17:09:50 Doctor Unassigned, No Un [facility] DIAGNOSIS AND TREATMENT Name Medical Branch MAGNESIUM 2023-01-11 09:00:00 Alysa Heath [facility] HEPATIC FUNCTION PANEL 2023-01-11 09:00:00 Alysa Heath [facility] ([id number]) (ALB,T.PRO,BILI [facility] T,BU/BC,ALT,AST,ALK PHOS) BASIC METABOLIC PANEL 2023-01-11 09:00:00 Alysa Heath [facility] (NA, K, CL, CO2, GLUCOSE, Medica l Branch BUN, CREATININE, CA) CBC WITH DIFF 2023-01-11 09:00:00 Alysa Heath [facility] PROTHROMBIN TIME / INR 2023-01-11 09:00:[address] [facility] XR CHEST 1 2023-01-10 15:20:00 Mariia Cardona [facility] MAGNESIUM 2023-01-10 09:35:00 Marli Robert [facility] BASIC METABOLIC PANEL 2023-01-10 09:35:00 Marli Robert [facility] (NA, K, CL, CO2, GLUCOSE, Medica l Branch BUN, CREATININE, CA) CBC WITH DIFF 2023-01-10 09:35:00 Jakob [facility] PROTHROMBIN TIME / INR 2023-01-10 09:35:[address] [facility] PROTHROMBIN TIME / INR 2023-01-09 23:39:00 Marli Robert [facility] MAGNESIUM 2023-01-09 10:43:00 [facility] BASIC METABOLIC PANEL 2023-01-09 10:43:00 Glenroy Harper [facility] (NA, K, CL, CO2, GLUCOSE, Medica l Branch BUN, CREATININE, CA) CBC WITH DIFF 2023-01-09 10:43:00 [facility] PROTHROMBIN TIME / INR 2023-01-09 10:43:00 Timi [facility] HB ECG ROUTINE & RHYTHM 2023-01-08 13:46:26 Radha Mcdowell [facility] MAGNESIUM 2023-01-08 09:25:00 [facility] BASIC METABOLIC PANEL 2023-01-08 09:25:00 Jose Villa [facility] (NA, K, CL, CO2, GLUCOSE, Medica l Branch BUN, CREATININE, CA) PROTHROMBIN TIME / INR 2023-01-08 09:25:00 Jose Villa [facility] N-TERMINAL PRO-BNP 2023-01-08 09:25:00 Leroy Idkiersten [facility] FECES CULTURE 2023-01-07 15:52:00 Timi [facility] FECAL PATHOGENS BY PCR 2023-01-07 15:51:00 [facility] TROPONIN [facility] 2023-01-07 10:08:00 Timi [facility] THYROID STIMULATING 2023-01-07 10:08:00 [facility] HORMONE [facility] CBC WITH DIFF 2023-01-07 10:08[facility] / [facility]R 2023-01-07 10:08:00 Tim[facility] TROPONIN I 2023-01-07 05:56:00 Timi [facility] BASIC METABOLIC PANEL 2023-01-07 05:56:00 Alicia Smiht [facility] (NA, K, CL, CO2, GLUCOSE, Medica l Branch BUN, CREATININE, CA) URINALYSIS 2023-01-07 00:03:00 Babita Iglesias [facility] CT HEAD WO CONTRAST 2023-01-06 23:40:00 [facility] LUMBAR SPINE WO 2023-01-06 23:40:00 Babita Iglesias [facility] CONTRAST [facility] XR CHEST 1 VW 2023-01-06 23:25:00 Babita Iglesias [facility] XR HIPS 3 VW RIGHT 2023-01-06 23:15:00 Babita Iglesias [facility] LIPASE 2023-01-06 23:04:00 Babita Iglesias [facility] MAGNESIUM 2023-01-06 23:04:00 Babita Iglesias [facility] TROPONIN I 2023-01-06 23:04:00 Babita Iglesias [facility] COMP. METABOLIC PANEL 2023-01-06 23:04:00 Babita Iglesias [facility] ([id number]) [facility] CBC WITH DIFF 2023-01-06 23:04:00 Babita Iglesias [facility] PROTHROMBIN TIME / INR 2023-01-06 23:04:00 Babita Iglesias [facility] ACTIVATED PARTIAL 2023-01-06 23:04:00 Babita Iglesias [facility] THRMPLAS [facility] N-TERMINAL PRO-BNP 2023-01-06 23:04:00 Babita Iglesias [facility] HB ECG ROUTINE & RHYTHM 2023-01-06 22:55:15 Babita Iglesias [facility] [place] CONSENT/REFUSAL FOR 2023-01-06 22:35:09 [facility] Name [facility] HOSPITAL ADMISSION 2023-01-06 05:01:00 Doctor Unassigned, No Uni [facility] of [facility] HB ECG ROUTINE & RHYTHM 2022-12-20 20:39:31 Woodrow [facility] [place] [facility] PATIENT FINANCIAL 2022-12-20 20:03:45 Doctor Unassigned, No [facility] POLICY Name Medical Branch HOME HEALTH - OTHER 2022-12-06 05:01:00 Doctor Unassigned, No [facility] [place] Name Medical Branch HOME HEALTH - OTHER 2022-11-24 05:01:00 Doctor Unassigned, No Un iversity of [facility] [place] EXTERNAL PROVIDER - ADC 2022-11-09 05:01:00 Doctor Unassigned, N o [facility] CARDIOLOGY Name Medical Branch MEDICAL RELEASE/CLEARANCE 2022-10-04 05:01:00 Doctor Unassigned, No [facility] FORMS Name Medical Branch MEDICAL RELEASE/CLEARANCE 2022-08-23 05:01:00 Doctor Unassigned, No [facility] FORMS [facility] [place] XR HIPS 2 VW RIGHT 2022-08-01 15:29:05 [facility] CONSENT/REFUSAL FOR 2022-08-01 15:11:45 Doctor Unassigned, No [facility] [place] DIAGNOSIS AND TREATMENT Name Medical Branch ASSIGNMENT OF BENEFITS 2022-08-01 15:11:28 Doctor Unassigned, No [facility] [place] PROTHROMBIN TIME / INR 2022-07-10 14:51:00 [place] [facility] CONSENT/REFUSAL FOR 2022-07-10 14:37:14 Doctor Unassigned, No [facility] [place] DIAGNOSIS AND TREATMENT Name Medical Branch CONSENT/REFUSAL FOR 2022-07-10 14:37:14 Doctor Unassigned, No [facility] [place] DIAGNOSIS AND TREATMENT Name Medical Branch ASSIGNMENT OF BENEFITS 2022-07-10 14:36:56 Doctor Unassigned, No [facility] Name Medical Branch ASSIGNMENT OF BENEFITS 2022-07-10 14:36:56 Doctor Unassigned, No [facility] Medical Branch PROTHROMBIN TIME / INR 2022-06-25 15:22:00 [place] [facility] [place] PROTHROMBIN TIME / INR 2022-06-12 08:34:00 Mariia Cardona [facility] [place] [facility] MAGNESIUM 2022-06-12 08:34:00 Leslie [facility] BASIC METABOLIC PANEL 2022-06-12 08:34:[address] [facility] (NA, K, CL, CO2, GLUCOSE, Medica l Branch BUN, CREATININE, [place]) CBC WITH DIFF 2022-06-12 08:34:00 Leslie [facility] ACTIVATED PARTIAL 2022-06-12 08:34:00 Demond [facility] MAGNESIUM 2022-06-12 08:34:00 Leslie [facility] BASIC METABOLIC PANEL 2022-06-12 08:34:[address] [facility] (NA, K, CL, CO2, GLUCOSE, Medica l Branch BUN, CREATININE, CA) CBC WITH DIFF 2022-06-12 08:34:00 Leslie Esiptia [facility] PROTHROMBIN TIME / INR 2022-06-12 08:34:00 Mariia [facility]ona [facility] ACTIVATED PARTIAL 2022-06-12 08:34:00 [facility] ACTIVATED PARTIAL 2022-06-12 02:29:00 [facility] ACTIVATED PARTIAL 2022-06-12 02:29:00 [facility] EXTRA TUBE LT. GREEN 2022-06-12 00:00:00 Mariia Cardona [facility] EXTRA TUBE LT. GREEN 2022-06-12 00:00:00 Mariia Cardona [facility] BLOOD CULTURE SCREEN 2022-06-11 19:48:00 Leslie Espitia [facility] BLOOD CULTURE SCREEN 2022-06-11 19:48:00 Leslie Espitia [facility] BLOOD CULTURE SCREEN 2022-06-11 19:42:00 Leslie Espitia [facility] BLOOD CULTURE SCREEN 2022-06-11 19:42:00 Leslie Espitia [facility] TRANSESOPHAGEAL ECHO 2022-06-11 15:58:00 Siddharth Chicas [facility] (AMRGA) COMPLETE W/ DOPPLER [facility] AND COLOR TRANSESOPHAGEAL ECHO 2022-06-11 15:58:00 Siddharth Chicas [facility] (MARGA) COMPLETE W/ DOPPLER [facility] AND COLOR ACTIVATED PARTIAL 2022-06-11 14:52:00 [facility] ACTIVATED PARTIAL 2022-06-11 14:52:00 [facility] PROTHROMBIN TIME / INR 2022-06-11 08:57:00 Mariia [facility]ona [facility] BASIC METABOLIC PANEL 2022-06-11 08:57:00 Les Ortega [facility] (NA, K, CL, CO2, GLUCOSE, Medica l Branch BUN, CREATININE, CA) MAGNESIUM 2022-06-11 08:57:00 Les Ortega [facility] ACTIVATED PARTIAL 2022-06-11 08:57:00 [facility] MAGNESIUM 2022-06-11 08:57:00 Les Ortega [facility] BASIC METABOLIC PANEL 2022-06-11 08:57:00 Les Ortega [facility] (NA, K, CL, CO2, GLUCOSE, Medica l Branch BUN, CREATININE, CA) PROTHROMBIN TIME / INR 2022-06-11 08:57:00 Mariia Cardona [facility] ACTIVATED PARTIAL 2022-06-11 08:57:00 [facility] HB ECG ROUTINE & RHYTHM 2022-06-11 07:47:48 Les Ortega [facility] ACTIVATED PARTIAL 2022-06-10 20:19:00 [facility] ACTIVATED PARTIAL 2022-06-10 20:19:00 [facility] HB ECG ROUTINE & RHYTHM 2022-06-10 16:35:44 [facility]HYTHM 2022-06-10 16:35:44 [facility] MAGNESIUM 2022-06-10 08:20:00 [facility] METABOLIC PANEL 2022-06-10 08:20:[address] [facility] (NA, K, CL, CO2, GLUCOSE, Medica l Branch BUN, CREATININE, CA) CBC WITH DIFF 2022-06-10 08:20:00 Omkar eda [facility] PROTHROMBIN TIME / INR 2022-06-10 08:20:00 Leslie Espitia [facility] ACTIVATED PARTIAL 2022-06-10 08:20:00 [facility] MAGNESIUM 2022-06-10 08:20:00 Leslie Espitia [facility] BASIC METABOLIC PANEL 2022-06-10 08:20:[address] [facility] (NA, K, CL, CO2, GLUCOSE, Medica l Branch BUN, CREATININE, CA) CBC WITH DIFF 2022-06-10 08:20:00 [facility] PROTHROMBIN TIME / INR 2022-06-10 08:20:00 [facility] 2022-06-10 08:20:00 [facility] EKG-12 LEAD 2022-06-10 04:08:10 Rebeca Holcomb [facility] ACTIVATED PARTIAL 2022-06-09 23:33:00 [facility] ACTIVATED PARTIAL 2022-06-09 23:33:00 [facility] ACTIVATED PARTIAL 2022-06-09 22:22:00 [facility] ACTIVATED PARTIAL 2022-06-09 22:22:00 [facility] BASIC METABOLIC PANEL 2022-06-09 20:19:00 Demond [facility] (NA, K, CL, CO2, GLUCOSE, Medica l Branch BUN, CREATININE, CA) BASIC METABOLIC PANEL 2022-06-09 20:19:00 [facility] (NA, K, CL, CO2, GLUCOSE, Medica l Branch BUN, CREATININE, CA) HB ECG ROUTINE & RHYTHM 2022-06-09 16:45:40 Demond [facility] HB ECG ROUTINE & RHYTHM 2022-06-09 16:45:40 [facility]ond [facility] MAGNESIUM 2022-06-09 10:03:00 [facility] BASIC METABOLIC PANEL 2022-06-09 10:03:[address] [facility] (NA, K, CL, CO2, GLUCOSE, Medica l Branch BUN, CREATININE, CA) CBC WITH DIFF 2022-06-09 10:03:00 [facility] PROTHROMBIN TIME / INR 2022-06-09 10:03:00 Mariia [facility] MAGNESIUM 2022-06-09 10:03:00 Leslie [facility]it[facility] BASIC METABOLIC PANEL 2022-06-09 10:03:00 Leslie Espitia [facility] (NA, K, CL, CO2, GLUCOSE, Medica l Branch BUN, CREATININE, CA) CBC WITH DIFF 2022-06-09 10:03:00 Leslie Espitia [facility] PROTHROMBIN TIME / INR 2022-06-09 10:03:00 Mariia [facility] EKG-12 LEAD 2022-06-09 04:12:20 Mariia Cardona [facility] EKG-12 LEAD 2022-06-09 04:12:20 Mariia Cardona [facility] PROTHROMBIN TIME / INR 2022-06-08 17:35:00 Leslie Epsitia [facility] PROTHROMBIN TIME / INR 2022-06-08 17:35:00 Leslie Espitia [facility] EKG-12 LEAD 2022-06-08 17:18:35 Kirk Connell [facility] EKG-12 LEAD 2022-06-08 17:18:35 Kirk Connell [facility] MAGNESIUM 2022-06-08 10:46:00 Leslie Espitia [facility] BASIC METABOLIC PANEL 2022-06-08 10:46:[address] [facility] (NA, K, CL, CO2, GLUCOSE, Medica l Branch BUN, CREATININE, CA) CBC WITH DIFF 2022-06-08 10:46:00 Leslie Espitia [facility] MAGNESIUM 2022-06-08 10:46:00 Leslie [facility]itia [facility] BASIC METABOLIC PANEL 2022-06-08 10:46:[address] [facility] (NA, K, CL, CO2, GLUCOSE, Medica l Branch BUN, CREATININE, CA) CBC WITH DIFF 2022-06-08 10:46:00 Leslie Espitia [facility] EKG-12 LEAD 2022-06-08 03:55:51 Kirk Connell [facility] EKG-12 LEAD 2022-06-08 03:55:51 Kirk Connell [facility] TRANSTHORACIC ECHO (TTE) 2022-06-07 17:56:10 Kirk Connell [facility] TRANSTHORACIC ECHO (TTE) 2022-06-07 17:56:10 Kirk Connell [facility] HB ECG ROUTINE & RHYTHM 2022-06-07 15:36:46 Leslie Espitia [facility] HB ECG ROUTINE & RHYTHM 2022-06-07 15:36:46 Leslie Espitia [facility] URINE DRUG (LCMSMS) - 2022-06-07 15:01:00 Opal Yen [facility] COMPREHENSIVE DRUG PANEL [facility] URINE DRUG (LCMSMS) - 2022-06-07 15:01:00 Opal Yen [facility] COMPREHENSIVE DRUG PANEL [facility] CBC WITH DIFF 2022-06-07 10:51:00 Opal Yen [facility] BASIC METABOLIC PANEL 2022-06-07 10:51:00 [facility] (NA, K, CL, CO2, GLUCOSE, Medica l Branch BUN, CREATININE, CA) IRON PANEL 2022-06-07 10:51:00 Opal Yen [facility] BASIC METABOLIC PANEL 2022-06-07 10:51:00 Opal Yen [facility] (NA, K, CL, CO2, GLUCOSE, Medica l Branch BUN, CREATININE, CA) IRON PANEL 2022-06-07 10:51:00 Opal Yen [facility] CBC WITH DIFF 2022-06-07 10:51:00 Opal Yen [facility] BASIC METABOLIC PANEL 2022-06-07 02:29:00 Opal Yen [facility] (NA, K, CL, CO2, GLUCOSE, Medica l Branch BUN, CREATININE, CA) HEPATIC FUNCTION PANEL 2022-06-07 02:29:00 Opal Yen [facility] ([id number]) (ALB,T.PRO,BILI Medical Branch T,BU/BC,ALT,AST,ALK PHOS) MAGNESIUM 2022-06-07 02:29:00 Opal Yen [facility] FOLATE 2022-06-07 02:29:00 Opal Yen [facility] MAGNESIUM 2022-06-07 02:29:00 Opal Yen [facility] FOLATE 2022-06-07 02:29:00 Opal Yen [facility] HEPATIC FUNCTION PANEL 2022-06-07 02:29:00 [id number] (ALB,T.PRO,BILI Medical Branch T,BU/BC,ALT,AST,ALK PHOS) BASIC METABOLIC PANEL 2022-06-07 02:29:00 Opal Yen [facility] (NA, K, CL, CO2, GLUCOSE, Medica l Branch BUN, CREATININE, CA) HB ECG ROUTINE & RHYTHM 2022-06-07 00:50:00 Farshad Opal Jared [facility] PROTHROMBIN TIME / INR 2022-06-07 00:33:00 [facility]Opal [facility] ACTIVATED PARTIAL 2022-06-07 00:33:00 FarshadOpal [facility] CBC WITH DIFF 2022-06-07 00:33:00 FarshadOpal [facility] FERRITIN SERUM 2022-06-07 00:33:00 FarshadOpal [facility] VITAMIN B12, LEVEL 2022-06-07 00:33:00 Farshad Opal Coleman [facility] FERRITIN SERUM 2022-06-07 00:33:00 FarshadOpal [facility] VITAMIN B12, LEVEL 2022-06-07 00:33:00 Farshad Opal Coleman [facility] CBC WITH DIFF 2022-06-07 00:33:00 Farshad Opal Coleman [facility] PROTHROMBIN TIME / INR 2022-06-07 00:33:00 Farshad [facility] ACTIVATED PARTIAL 2022-06-07 00:33:00 Farshad Opal Coleman [facility] PROTHROMBIN TIME / INR 2022-06-06 16:10:[address] [facility] HOSPITAL ADMISSION 2022-06-06 06:01:00 Doctor Unassigned, No [facility] CBC W/PLT COUNT & AUTO 2022-05-27 04:37:00 Katarina Cabrera [facility] PROTHROMBIN TIME/INR 2022-05-27 04:37:00 Katarina Cabrera [facility] MAGNESIUM 2022-05-27 04:37:00 Me[place]han [place] [facility] BASIC METABOLIC PANEL 2022-05-27 04:37:00 [place]han [place] [facility] CBC W/PLT COUNT & AUTO 2022-05-27 04:37:[address] [facility] APTT 2022-05-26 09:28:[address] [facility] CBC W/PLT COUNT & AUTO 2022-05-26 06:27:00 Rick [facility] PROTHROMBIN TIME/INR 2022-05-26 06:27:00 Katarina Cabrera [facility] MAGNESIUM 2022-05-26 06:27:00 [place] [facility] BASIC METABOLIC PANEL 2022-05-26 06:27:00 [place]han [place] [facility] APTT 2022-05-26 06:27:[address] [facility] CBC W/PLT COUNT & AUTO 2022-05-26 06:27:[address] [facility] APTT 2022-05-26 00:28:[address] [facility] APTT 2022-05-25 22:25:[address] [facility] APTT 2022-05-25 14:41:00 [facility] 12:13:00 [facility]IC METABOLIC PANEL 2022-05-25 07:29:00 Jakob [facility] MAGNESIUM 2022-05-25 07:29:00 Jakob [facility] ECG 12-LEAD 2022-05-25 06:42:59 Unknown, Hl7 Doctor [facility] ECG 12-LEAD 2022-05-25 06:42:59 Robert, [facility] ECG 12-LEAD 2022-05-25 06:42:59 Unknown, Hl7 Doctor [facility] APTT 2022-05-25 05:57:00 [facility] 2022-05-25 04:47:[address] [facility] CBC W/PLT COUNT & AUTO 2022-05-25 03:20:00 Rick [facility] PROTHROMBIN TIME/INR 2022-05-25 03:20:00 Rick, [facility] APTT 2022-05-25 03:20:00 Me[place]han [place] [facility] CBC W/PLT COUNT & AUTO 2022-05-25 03:20:00 Rick, [facility] APTT 2022-05-24 20:02:00 [place], [facility] APTT 2022-05-24 17:36:00 Ef[place], [facility] APTT 2022-05-24 10:31:00 Rick, [facility] APTT 2022-05-24 03:41:00 [place], [facility] APTT 2022-05-24 01:14:00 [place], [facility] CBC W/PLT COUNT & AUTO 2022-05-24 01:14:00 Rick [facility] BASIC METABOLIC PANEL 2022-05-24 01:14:00 Rick, [facility] MAGNESIUM 2022-05-24 01:14:00 Rick, [facility] PHOSPHORUS 2022-05-24 01:14:00 Rick [facility] PROTHROMBIN TIME/INR 2022-05-24 01:14:00 Rick, [facility] CBC W/PLT COUNT & AUTO 2022-05-24 01:14:00 Rick, [facility] APTT 2022-05-23 18:18:00 Franc [facility] APTT 2022-05-23 16:11:00 Franc [facility] APTT 2022-05-23 08:24:00 Franc [facility] CBC W/PLT COUNT & AUTO 2022-05-23 04:23:00 Rick, [facility] BASIC METABOLIC PANEL 2022-05-23 04:23:00 Rick, [facility] MAGNESIUM 2022-05-23 04:23:00 Rick, [facility] PHOSPHORUS 2022-05-23 04:23:00 Rick, [facility] PROTHROMBIN TIME/INR 2022-05-23 04:23:00 Rick, [facility] APTT 2022-05-23 04:23:[address] [facility] CBC W/PLT COUNT & AUTO 2022-05-23 04:23:00 Rick, [facility] APTT 2022-05-22 20:49:[address] [facility] HEMOGLOBIN AND HEMATOCRIT 2022-05-22 17:54:00 [facility] 13:59:[address] [facility] CBC W/PLT COUNT & AUTO 2022-05-22 02:47:00 Rick, [facility] BASIC METABOLIC PANEL 2022-05-22 02:47:00 Rick, [facility] MAGNESIUM 2022-05-22 02:47:00 Rick, [facility] PHOSPHORUS 2022-05-22 02:47:00 Rick, [facility] PROTHROMBIN TIME/INR 2022-05-22 02:47:00 Rick, [facility] APTT 2022-05-22 02:47:[address] [facility] CBC W/PLT COUNT & AUTO 2022-05-22 02:47:00 Rick, [facility] PREPARE RBC 2022-05-21 23:54:00 Vinayak Cook [facility] HEMOGLOBIN AND HEMATOCRIT 2022-05-21 21:35:00 Rick, Katarina [facility] PROTHROMBIN TIME/INR 2022-05-21 14:45:00 Rick, [facility] APTT 2022-05-21 14:45:[address] [facility] 2D ECHO W/ DOPPLER 2022-05-21 13:06:46 Vitaly Flores [facility] (CW/PW/COLOR) [facility] 2D ECHO W/ DOPPLER 2022-05-21 13:06:46 Vitaly Flores [facility] (CW/PW/COLOR) [facility] HEMOGLOBIN AND HEMATOCRIT 2022-05-21 12:50:00 Rick [facility] TSH/FREE T4 IF INDICATED 2022-05-21 12:50:00 Efrain [facility] APTT 2022-05-21 08:34:[address] [facility] CBC W/PLT COUNT & AUTO 2022-05-21 05:00:00 Rick, [facility] BASIC METABOLIC PANEL 2022-05-21 05:00:00 Rick, [facility] MAGNESIUM 2022-05-21 05:00:00 Rick, [facility] PHOSPHORUS 2022-05-21 05:00:00 Rick [facility] CBC W/PLT COUNT & AUTO 2022-05-21 05:00:00 Rick [facility] PROTHROMBIN TIME/INR 2022-05-21 01:15:00 Rick, [facility] APTT 2022-05-21 01:15:[address] [facility] HEMOGLOBIN AND HEMATOCRIT 2022-05-20 20:25:00 Rick [facility] PROTHROMBIN TIME/INR 2022-05-20 17:07:00 Rick, [facility] APTT 2022-05-20 17:07:[address] [facility] HEMOGLOBIN AND HEMATOCRIT 2022-05-20 13:03:00 Rick Katarina [facility] APTT 2022-05-20 13:02:[address] [facility] TRANSFUSE LEUKO-REDUCED 2022-05-20 08:38:00 Major Joyceel [facility] RED BLOOD CELLS [facility] PREPARE RBC 2022-05-20 08:19:00 AdhVinayak foyrees [facility] APTT 2022-05-20 05:03:00 [facility] W/[facility]T COUNT & AUTO 2022-05-20 03:36:00 Rick [facility] BASIC METABOLIC PANEL 2022-05-20 03:36:00 Rick, [facility] MAGNESIUM 2022-05-20 03:36:00 Rick [facility] PHOSPHORUS 2022-05-20 03:36:00 Rick, [facility] PROTHROMBIN TIME/INR 2022-05-20 03:36:00 Rick, [facility] CBC W/PLT COUNT & AUTO 2022-05-20 03:36:00 Rick, [facility] APTT 2022-05-19 22:59:00 [facility] HEMATOCRIT 2022-05-19 21:17:00 Rick [facility] PROTHROMBIN TIME/INR 2022-05-19 17:05:00 Rick [facility] APTT 2022-05-19 17:05:00 [facility]EMOGLOBIN AND HEMATOCRIT 2022-05-19 12:11:00 Rick, [facility] PROTHROMBIN TIME/INR 2022-05-19 12:11[facility]00 [facility] 2022-05-19 11:39:33 Unknown, Hl7 Doctor [facility] ECG 12-LEAD 2022-05-19 11:39:33 SandraVitaly dickinson [facility] ECG 12-LEAD 2022-05-19 11:39:33 Unknown, Hl7 [facility] POCT-GLUCOSE METER 2022-05-19 05:28:00 Shadi Church [facility] CBC W/PLT COUNT & AUTO 2022-05-19 03:08:00 Rick, [facility] CBC W/PLT COUNT & AUTO 2022-05-19 03:08:00 Rick, [facility] BASIC METABOLIC PANEL 2022-05-19 03:07:00 Rick, [facility] MAGNESIUM 2022-05-19 03:07:00 Rick, [facility] PHOSPHORUS 2022-05-19 03:07:00 Rick, [facility] PROTHROMBIN TIME/INR 2022-05-19 03:07:00 Rick, [facility] POCT-GLUCOSE METER 2022-05-18 23:02:00 Adhdanii Vinayaklake Evans [facility] ECG 12-LEAD 2022-05-18 21:08:01 Unknown, Hl7 [facility] ECG 12-LEAD 2022-05-18 21:08:[facility] 2022-05-18 21:08:01 Unknown, Hl7 [facility] BUN AND CREATININE 2022-05-18 20:38:00 [facility] W/RATIO [facility] POTASSIUM 2022-05-18 20:38:00 [facility] MAG[facility]UM 2022-05-18 20:38:00 [facility] HEMOGLOBIN AND HEMATOCRIT 2022-05-18 20:01:00 Katarina Cabrera Danii [facility] POCT-GLUCOSE METER 2022-05-18 18:56:00 [facility]hd[facility]ii [facility] PELVIS 2022-05-18 17:42:00 Rick, [facility] URINALYSIS W/ REFLEX 2022-05-18 15:23:00 Rick, [facility] URINE CULTURE [facility] PROTHROMBIN TIME/INR 2022-05-18 15:23:00 Rick, [facility] HIGH SENSITIVITY TROPONIN 2022-05-18 15:23:00 Rick, [facility] URINE CULTURE 2022-05-18 15:23:00 Rick, [facility] CBC (HEMOGRAM ONLY) 2022-05-18 13:05:00 Rick, [facility] CALCIUM, IONIZED 2022-05-18 13:05:00 Rick, [facility] POCT-GLUCOSE METER 2022-05-18 12:55:[address] [facility] ABORH, MANUAL 2022-05-18 11:55:00 Floridalma Monsalve [facility] TYPE AND SCREEN, 2022-05-18 11:02:00 Rick, [facility] COMPREHENSIVE METABOLIC 2022-05-18 11:01:00 Rick, [facility] MAGNESIUM 2022-05-18 11:01:00 Rick, [facility] PHOSPHORUS 2022-05-18 11:01:00 Rick, [facility] LACTIC ACID, VENOUS 2022-05-18 11:01:00 Rick, [facility] LIPASE 2022-05-18 11:01:00 Rick, [facility] B-TYPE NATRIURETIC FACTOR 2022-05-18 11:01:00 Rick, [facility] (BNP) [facility] PT/APTT 2022-05-18 11:00:00 Rick, [facility] FIBRINOGEN 2022-05-18 11:00:00 Rick, [facility] ECG 12-LEAD 2022-05-18 10:34:14 Unknown, Hl7 Doctor [facility] ECG 12-LEAD 2022-05-18 10:34:14 Katarina Cabrera [facility] ECG 12-LEAD 2022-05-18 10:34:14 Unknown, Hl7 Doctor [facility] HB ECG ROUTINE & RHYTHM 2022-05-10 17:51:31 Wayne Rabago [facility] PROTHROMBIN TIME / INR 2022-05-09 16:24:[address] [facility] CONSENT/REFUSAL FOR 2022-05-09 16:13:00 [facility] Name Medical Branch ASSIGNMENT OF BENEFITS 2022-05-09 16:12:36 Doctor Unassigned, No [facility] Name Medical Branch ASSIGNMENT OF BENEFITS 2022-05-09 16:12:36 Doctor Unassigned, No [facility] Medical Branch PROTHROMBIN TIME / INR 2022-04-11 15:46:00 [place] [facility] CONSENT/REFUSAL FOR 2022-04-11 15:36:05 [facility]igned[facility] [place] [facility] [place] [facility] Name Medical Branch ASSIGNMENT OF BENEFITS 2022-04-11 15:35:52 Doctor Unassigned, No [facility] Medical Branch ASSIGNMENT OF BENEFITS 2022-04-11 15:35:52 Doctor Unassigned, No [facility] Medical Branch MEDICATION CORRESPONDENCE 2022-03-18 06:01:00 Doctor Unassigned, No [facility] Branch PROTHROMBIN TIME / INR 2022-03-14 15:29:00 [place] Dan [facility] [place] CONSENT/REFUSAL FOR 2022-03-14 15:15:12 Doctor Unassigned, [facility] Name Medical Branch ASSIGNMENT OF BENEFITS 2022-03-14 15:15:00 Doctor Unassigned, No [facility] Name Medical Branch ASSIGNMENT OF BENEFITS 2022-03-14 15:15:00 Doctor Unassigned, No [facility] Medical Branch CONSENT/REFUSAL FOR 2022-02-28 18:42:52 [facility] Name Medical Branch CONSENT/REFUSAL FOR 2022-02-14 14:32:17 Doctor Unassigned, [facility] ASSIGNMENT OF BENEFITS 2022-02-14 14:32:04 Doctor Unassigned, No [facility] Branch ASSIGNMENT OF BENEFITS 2021-12-14 17:04:14 Doctor Unassigned, No [facility] HOSPITAL ADMISSION 2021-11-23 05:01:00 Doctor Unassigned, No General acute hospital Plan of Care Planned Activity Planned Date [facility]00 (12+) [code = [facility] DEPRESSION SCREENING (12+)] Future Scheduled 2022-04-15 [...] breast Medical C enter (procedure) [code = 724190652] Future Scheduled 1953 CT Colonography (combo) [facility] 00:00:00 [code = CT Colonography [facility] (combo)] Future Scheduled 1953 Screening for malignant [facility] Test 00:00:00 neoplasm of colon Medical Ce nter (procedure) [code = 843744691] Future Scheduled 1953 Screening for malignant [facility] Test 00:00:00 neoplasm of colon Medical Ce nter (procedure) [code = 883036433] Future Scheduled 1953 DXA SCAN [code = DXA [facility] 00:00:00 SCAN] [facility] Future Scheduled 1953 Screening for malignant [facility] Test 00:00:00 neoplasm of colon Medical Ce nter (procedure) [code = 654456145] Future Scheduled 1953 Screening for malignant [facility] 00:00:00 neoplasm of colon Medical Ce nter (procedure) [code = 563758412] Future Scheduled 1953 Sigmoidoscopy [code = [facility] Future Scheduled 1953 Screening for malignant [facility] Test 00:00:00 neoplasm of breast Medical C enter (procedure) [code = 412740536] Future Scheduled 1953 CT Colonography (combo) [facility] Test 00:00:00 [code = CT Colonography [facility] (combo)] Future Scheduled 1953 Screening for malignant [facility] 00:00:00 neoplasm of colon Medical Ce nter (procedure) [code = 263935487] Future Scheduled 1953 Screening for malignant [facility] 00:00:00 neoplasm of colon Medical Ce nter (procedure) [code = 169827822] Future Scheduled 1953 DXA SCAN [code = DXA [facility] 00:00:00 SCAN] [facility] Future Scheduled 1953 Screening for malignant [facility] 00:00:00 neoplasm of colon Medical Ce nter (procedure) [code = 054553318] Future Scheduled 1953 Screening for malignant [facility] 00:00:00 neoplasm of colon Medical Ce nter (procedure) [code = 557076794] Future Scheduled 1953 Sigmoidoscopy [code = [facility] Future Scheduled [address] Screening for malignant [facility] 00:00:00 neoplasm of breast Medical C enter (procedure) [code = 654393052] Future Scheduled 1953 CT Colonography (combo) [facility] 00:00:00 [code = CT Colonography [facility] (combo)] Future Scheduled 1953 Screening for malignant [facility] 00:00:00 neoplasm of colon Medical Ce [facility]ter (procedure) [code = [id number]] Future Scheduled 1953 Screening for malignant [facility] 00:00:00 neoplasm of colon Medical Ce [facility]ter (procedure) [code = [id number]] Future Scheduled 1953 DXA SCAN [code = DXA [facility] Test 00:00:00 SCAN] [facility] Future Scheduled 1953 Screening for malignant [facility] 00:00:00 neoplasm of colon Medical Ce nter (procedure) [code = 594612079] Future Scheduled 1953 Screening for malignant [facility] 00:00:00 neoplasm of colon Medical Ce nter (procedure) [code = 818885960] Future Scheduled 1953 Sigmoidoscopy [facility]code = [facility] Future Scheduled 1953 Screening for malignant [facility] 00:00:00 neoplasm of breast Medical C enter (procedure) [code = 952283331] Future Scheduled 1953 CT Colonography (combo) [facility] 00:00:00 [code = CT Colonography [facility] (combo)] Future Scheduled 1953 Screening for malignant [facility] 00:00:00 neoplasm of colon Medical Ce nter (procedure) [code = 627065302] Future Scheduled 1953 Screening for malignant [facility] 00:00:00 neoplasm of colon Medical Ce nter (procedure) [code = 276093051] Future Scheduled 1953 DXA SCAN [code = DXA [facility] 00:00:00 SCAN] [facility] Future Scheduled 1953 Screening for malignant [facility] 00:00:00 neoplasm of colon Medical Ce nter (procedure) [code = 718045890] Future Scheduled 1953 Screening for malignant [facility] 00:00:00 neoplasm of colon Medical Ce nter (procedure) [code = 624655602] Future Scheduled 1953 Sigmoidoscopy [code = [facility]] [facility] Future Scheduled 1953 Screening for malignant [facility] 00:00:00 neoplasm of breast Medical C enter (procedure) [code = 639493090] Future Scheduled 1953 CT Colonography (combo) [facility] 00:00:00 [code = CT Colonography [facility] (combo)] Future Scheduled 1953 Screening for malignant [facility] 00:00:00 neoplasm of colon Medical Ce nter (procedure) [code = 083879889] Future Scheduled 1953 Screening for malignant [facility] 00:00:00 neoplasm of colon Medical Ce nter (procedure) [code = 952049803] Future Scheduled 1953 DXA SCAN [code = DXA [facility] 00:00:00 SCAN] [facility] Future Scheduled 1953 Screening for malignant [facility] 00:00:00 neoplasm of colon Medical Ce nter (procedure) [code = 792853638] Future Scheduled 1953 Screening for malignant [facility] 00:00:00 neoplasm of colon Medical Ce nter (procedure) [code = 082296593] Future Scheduled 1953 Sigmoidoscopy [code = [facility] 00:[facility] Sigmoidoscopy] Medical Erine r Future Scheduled 1953 Screening for malignant [facility] 00:00:00 neoplasm of breast Medical C enter (procedure) [code = 362825260] Future Scheduled 1953 CT Colonography (combo) [facility] 00:00:00 [code = CT Colonography [facility] (combo)] Future Scheduled 1953 Screening for malignant [facility] 00:00:00 neoplasm of colon Medical Ce nter (procedure) [code = 706717081] Future Scheduled 1953 Screening for malignant [facility] 00:00:00 neoplasm of colon Medical Ce nter (procedure) [code = 670744262] Future Scheduled 1953 DXA SCAN [code = DXA [facility] 00:00:00 SCAN] [facility] Future Scheduled 1953 Screening for malignant [facility] 00:00:00 neoplasm of colon Medical Ce nter (procedure) [code = 041855974] Future Scheduled 1953 Screening for malignant [facility] 00:00:00 neoplasm of colon Medical Ce nter (procedure) [code = 812501854] Future Scheduled 1953 Sigmoidoscopy [code = [facility]] [facility] Erine r Future Scheduled 1953 Screening for malignant [facility] 00:00:00 neoplasm of breast Medical C enter (procedure) [code = 953193572] Future Scheduled 1953 CT Colonography (combo) [facility] 00:00:00 [code = CT Colonography [facility] (combo)] Future Scheduled 1953 Screening for malignant [facility] 00:00:00 neoplasm of colon Medical Ce nter (procedure) [code = 556045283] Future Scheduled 1953 Screening for malignant [facility] 00:00:00 neoplasm of colon Medical Ce nter (procedure) [code = 832052386] Future Scheduled 1953 DXA SCAN [code = DXA [facility] 00:00:00 SCAN] [facility] Future Scheduled 1953 Screening for malignant [facility] 00:00:00 neoplasm of colon Medical Ce nter (procedure) [code = 166277166] Future Scheduled 1953 Screening for malignant [facility] 00:00:00 neoplasm of colon Medical Ce nter (procedure) [code = 985524389] Future Scheduled 1953 Sigmoidoscopy [code = [facility] 00:[facility] S[facility]oscopy] Medical Cente r Future Scheduled 1953 Screening for malignant [facility] 00:00:00 neoplasm of breast Medical C enter (procedure) [code = 162811746] Future Scheduled 1953 CT Colonography (combo) [facility] 00:00:00 [code = CT Colonography [facility] (combo)] Future Scheduled 1953 Screening for malignant [facility] 00:00:00 neoplasm of colon Medical Ce nter (procedure) [code = 360419823] Future Scheduled 1953 Screening for malignant [facility] 00:00:00 neoplasm of colon Medical Ce nter (procedure) [code = 488980957] Future Scheduled 1953 DXA SCAN [code = DXA [facility] 00:00:00 SCAN] [facility] Future Scheduled 1953 Screening for malignant [facility] 00:00:00 neoplasm of colon Medical Ce nter (procedure) [code = 231735166] Future Scheduled 1953 Screening for malignant [facility] 00:00:00 neoplasm of colon Medical Ce nter (procedure) [code = 355577761] Future Scheduled 1953 Sigmoidoscopy [code = [facility] 00:[facility]] Medical Cent[facility] r Future Scheduled 1953 Screening for malignant [facility] 00:00:00 neoplasm of breast Medical C enter (procedure) [code = 407463646] Future Scheduled 1953 CT Colonography (combo) [facility] 00:00:00 [code = CT Colonography [facility] (combo)] Future Scheduled 1953 Screening for malignant [facility] 00:00:00 neoplasm of colon Medical Ce nter (procedure) [code = 712807866] Future Scheduled 1953 Screening for malignant [facility] 00:00:00 neoplasm of colon Medical Ce nter (procedure) [code = 262884899] Future Scheduled 1953 DXA SCAN [code = DXA [facility] 00:00:00 SCAN] [facility] Future Scheduled 1953 Screening for malignant [facility] 00:00:00 neoplasm of colon Medical Ce nter (procedure) [code = 100496749] Future Scheduled 1953 Screening for malignant [facility] 00:00:00 neoplasm of colon Medical Ce nter (procedure) [code = 918499973] Future Scheduled 1953 Sigmoidoscopy [code = [facility]] [facility] Future Scheduled 1953 Screening for malignant [facility] 00:00:00 neoplasm of breast Medical C enter (procedure) [code = 872357391] Future Scheduled 1953 CT Colonography (combo) [facility] 00:00:00 [code = CT Colonography [facility] (combo)] Future Scheduled 1953 Screening for malignant [facility] 00:00:00 neoplasm of colon Medical Ce nter (procedure) [code = 470610265] Future Scheduled 1953 Screening for malignant [facility] 00:00:00 neoplasm of colon Medical Ce nter (procedure) [code = 426958693] Future Scheduled 1953 DXA SCAN [code = DXA [facility] 00:00:00 SCAN] [facility] Future Scheduled 1953 Screening for malignant [facility] 00:00:00 neoplasm of colon Medical Ce nter (procedure) [code = 761462371] Future Scheduled 1953 Screening for malignant [facility] 00:00:00 neoplasm of colon Medical Ce nter (procedure) [code = 247211351] Future Scheduled 1953 [facility]oidoscopy [facility] Screening for malignant [facility] 00:00:00 neoplasm of breast Medical C enter (procedure) [code = 612711201] Future Scheduled 1953 CT Colonography (combo) [facility] 00:00:00 [code = CT Colonography [facility] (combo)] Future Scheduled 1953 Screening for malignant [facility] 00:00:00 neoplasm of colon Medical Ce nter (procedure) [code = 230068088] Future Scheduled 1953 Screening for malignant [facility] 00:00:00 neoplasm of colon Medical Ce nter (procedure) [code = 709828444] Future Scheduled 1953 DXA SCAN [code = DXA [facility] 00:00:00 SCAN] [facility] Future Scheduled 1953 Screening for malignant [facility] 00:00:00 neoplasm of colon Medical Ce nter (procedure) [code = 131534704] Future Scheduled 1953 Screening for malignant [facility] 00:00:00 neoplasm of colon Medical Ce nter (procedure) [code = 079474708] Future Scheduled 1953 Sigmoidoscopy [code = [facility]] [facility] Future Scheduled 1953 Screening for malignant [facility] 00:00:00 neoplasm of breast Medical C enter (procedure) [code = 434810226] Future Scheduled 1953 CT Colonography (combo) [facility] 00:00:00 [code = CT Colonography [facility] (combo)] Future Scheduled 1953 Screening for malignant [facility] 00:00:00 neoplasm of colon Medical Ce nter (procedure) [code = 876868333] Future Scheduled 1953 Screening for malignant [facility] 00:00:00 neoplasm of colon Medical Ce nter (procedure) [code = 266984151] Future Scheduled 1953 DXA SCAN [code = DXA [facility] 00:00:00 SCAN] [facility] Future Scheduled 1953 Screening for malignant [facility] 00:00:00 neoplasm of colon Medical Ce nter (procedure) [code = 941348251] Future Scheduled 1953 Screening for malignant [facility] 00:00:00 neoplasm of colon Medical Ce nter (procedure) [code = 098257126] Future Scheduled 1953 Sigmoidoscopy [code [facility]] [facility] Future Scheduled 1953 Screening for malignant [facility] 00:00:00 neoplasm of breast Medical C enter (procedure) [code = 304435188] Future Scheduled 1953 CT Colonography (combo) [facility] 00:00:00 [code = CT Colonography [facility] (combo)] Future Scheduled 1953 Screening for malignant [facility] 00:00:00 neoplasm of colon Medical Ce nter (procedure) [code = 425945309] Future Scheduled 1953 Screening for malignant [facility] 00:00:00 neoplasm of colon Medical Ce nter (procedure) [code = 787451692] Future Scheduled 1953 DXA SCAN [code = DXA [facility] 00:00:00 SCAN] [facility] Future Scheduled 1953 Screening for malignant [facility] 00:00:00 neoplasm of colon Medical Ce nter (procedure) [code = 280054353] Future Scheduled 1953 Screening for malignant [facility] 00:00:00 neoplasm of colon Medical Ce nter (procedure) [code = 966079623] Future Scheduled 1953 Sigmoidoscopy [code [facility]] [facility] Future Scheduled 1953 Screening for malignant [facility] 00:00:00 neoplasm of breast Medical C enter (procedure) [code = 228018236] Future Scheduled 1953 CT Colonography (combo) [facility] 00:00:00 [code = CT Colonography [facility] (combo)] Future Scheduled 1953 Screening for malignant [facility] 00:00:00 neoplasm of colon Medical Ce nter (procedure) [code = 923177263] Future Scheduled 1953 Screening for malignant [facility] 00:00:00 neoplasm of colon Medical Ce nter (procedure) [code = 952582224] Future Scheduled 1953 DXA SCAN [code = DXA [facility] 00:00:00 SCAN] [facility] Future Scheduled 1953 Screening for malignant [facility] 00:00:00 neoplasm of colon Medical Ce nter (procedure) [code = 656990930] Future Scheduled 1953 Screening for malignant [facility] 00:00:00 neoplasm of colon Medical Ce nter (procedure) [code = 295825489] Future Scheduled 1953 S[facility]oidoscopy [facility] 1953 Screening for malignant [facility] 00:00:00 neoplasm of breast Medical C enter (procedure) [code = 961542048] Future Scheduled 1953 CT Colonography (combo) [facility] 00:00:00 [code = CT Colonography [facility] (combo)] Future Scheduled 1953 Screening for malignant [facility] 00:00:00 neoplasm of colon Medical Ce nter (procedure) [code = 829820630] Future Scheduled 1953 Screening for malignant [facility] 00:00:00 neoplasm of colon Medical Ce nter (procedure) [code = 211841761] Future Scheduled 1953 DXA SCAN [code = DXA [facility] 00:00:00 SCAN] [facility] Future Scheduled 1953 Screening for malignant [facility] 00:00:00 neoplasm of colon Medical Ce nter (procedure) [code = 519738676] Future Scheduled 1953 Screening for malignant [facility] 00:00:00 neoplasm of colon Medical Ce nter (procedure) [code = 434264888] Future Scheduled 1953 Sigmoidoscopy [code = [facility]] [facility] Future Scheduled 1953 Screening for malignant [facility] 00:00:00 neoplasm of breast Medical C enter (procedure) [code = 513403361] Future Scheduled 1953 CT Colonography (combo) [facility] 00:00:00 [code = CT Colonography [facility] (combo)] Future Scheduled 1953 Screening for malignant [facility] 00:00:00 neoplasm of colon Medical Ce nter (procedure) [code = 574890456] Future Scheduled 1953 Screening for malignant [facility] 00:00:00 neoplasm of colon Medical Ce nter (procedure) [code = 188191603] Future Scheduled 1953 DXA SCAN [code = DXA [facility] 00:00:00 SCAN] [facility] Future Scheduled 1953 Screening for malignant [facility] 00:00:00 neoplasm of colon Medical Ce nter (procedure) [code = 518720492] Future Scheduled 1953 Screening for malignant [facility] 00:00:00 neoplasm of colon Medical Ce nter (procedure) [code = 277875029] Future Scheduled 1953 Sigmoidoscopy [code = [facility]] [facility] Future Scheduled 1953 Screening for malignant [facility] 00:00:00 neoplasm of breast Medical C enter (procedure) [code = 018242915] Future Scheduled 1953 CT Colonography (combo) [facility] 00:00:00 [code = CT Colonography [facility] (combo)] Future Scheduled 1953 Screening for malignant [facility] 00:00:00 neoplasm of colon Medical Ce nter (procedure) [code = 731539352] Future Scheduled 1953 Screening for malignant [facility] 00:00:00 neoplasm of colon Medical Ce nter (procedure) [code = 819180084] Future Scheduled 1953 DXA SCAN [code = DXA [facility] 00:00:00 SCAN] [facility] Future Scheduled 1953 Screening for malignant [facility] 00:00:00 neoplasm of colon Medical Ce nter (procedure) [code = 370464417] Future Scheduled 1953 Screening for malignant [facility] 00:00:00 neoplasm of colon Medical Ce nter (procedure) [code = 660910502] Future Scheduled 1953 Sigmoidoscopy [code = [facility]] [facility] Cent[facility] Future Scheduled 1953 Screening for malignant [facility] 00:00:00 neoplasm of breast Medical C enter (procedure) [code = 159544055] Future Scheduled 1953 CT Colonography (combo) [facility] 00:00:00 [code = CT Colonography [facility] (combo)] Future Scheduled 1953 Screening for malignant [facility] 00:00:00 neoplasm of colon Medical Ce nter (procedure) [code = 065539096] Future Scheduled 1953 Screening for malignant [facility] 00:00:00 neoplasm of colon Medical Ce nter (procedure) [code = 907138209] Future Scheduled 1953 DXA SCAN [code = DXA [facility] 00:00:00 SCAN] [facility] Future Scheduled 1953 Screening for malignant [facility] 00:00:00 neoplasm of colon Medical Ce nter (procedure) [code = 268026099] Future Scheduled 1953 Screening for malignant [facility] 00:00:00 neoplasm of colon Medical Ce nter (procedure) [code = 747525637] Future Scheduled 1953 Sigmoidoscopy [code [facility]] Medical Cent[facility] r Encounters Start End Encounter Admission Attending Care Care Encounter Source Date/Time Date/Time Type Type Clinicians Facility Department ID 2023-02-19 Outpatient IBRAHIM, [facility] [id number] Common 09:55:00 DANIEL [id number] [facility] 2022-09-13 Outpatient IBRAHIM, [facility] [id number] Common 13:24:02 DANIEL [id number] [facility] 2022-08-16 Outpatient IBRAHIM, [facility] [id number] Common 12:00:01 DANIEL [id number] [facility] 2022-08-15 Outpatient IBRAHIM, [facility] [id number] Common 15:12:01 DANIEL [id number] [facility] 2022-08-14 [facility] [id number] Common 08:50:01 Saurabh [id number] [facility] 2022-06-05 Inpatient R MARIIA CARDONA [facility] [id number] Univers 07:56:00 MARIIA CARDONA [facility] 2021-11-20 Inpatient R REBECA HOLCOMB [facility] [id number] Univers 15:24:28 REBECA HOLCOMB i ty [facility] 2021-09-21 Outpatient Dobson, STLMLC [facility] [id number] Common 10:27:03 Saurabh [id number] [facility] 2023-06-20 2023-06-20 Outpatient R GEETA KOROMA [facility] [id number] Univers 14:00:00 14:00:00 GEETA KOROMA [facility] 2023-06-13 2023-06-13 Outpatient R GEETA KOROMA [facility] [id number] Univers 14:00:00 14:00:00 GEETA KOROMA [facility] 2023-02-28 2023-02-28 [facility] [id number] Univers 11:20:00 11:20:00 [place] perez o [facility] 2023-02-13 2023-02-13 [facility] 1.2.840.114 [id number] Univers 13:40:00 13:50:00 Visit [place] [facility] 4[facility]2.7.2.686 [facility] anais PROFESSIO [phone] T[place] dical ON LICENSE OF [facility] 059 [facility] 2023-02-13 2023-02-13 [facility] [id number] Univers 13:40:00 13:40:00 [place] perez o f [facility] 2023-02-13 2023-02-13 Telephone [facility] [id number] Univers 00:00:00 00:00:00 [place] ARANDA 350.1.13.10 ity [facility] [place] [id number] [place] dical NAL 059 [facility] 2023-02-12 2023-02-12 Outpatient R [facility] [id number] Univers 10:30:00 10:30:00 ity of [facility] 2023-02-08 2023-02-08 Refnata Dan [facility] 1.2.840.114 [id number] Univers 00:00:00 00:00:00 [place] ARANDA 350.1.13.10 [place]y [place] [id number] [place] dical NAL 059 [facility] 2023-02-07 2023-02-07 Outpatient R GEETA KOROMA [facility] [id number] Univers 15:00:00 15:00:00 GEETA KOROMA [facility] 2023-02-07 2023-02-07 Tank Welder Farnaz, Andre Lab Main [facility] 1.2.8 40.114 [id number] Univers 14:00:00 14:15:00 Visit Geeta Koroma 350.1 .13.10 ity [place] [id number] T[place] dical NAL 353 [facility] 2023-02-07 2023-02-07 Outpatient R GEETA KOROMA [facility] [id number] Univers 14:00:00 14:00:00 [facility] 2023-02-05 Transition DONNY GamezYandy 1.2.840.114 [id number] Univers 00:00:00 00:00:00 of Care Georgie SAMANIEGO 350.1.13.10 it y [place] [id number] [facility] [address] 2023-02-02 2023-02-03 Outpatient X AMADEO [facility] [id number] Univers 12:13:00 14:11:00 RAO ity [facility] 2023-02-02 2023-02-03 Emergency Mazin Mrerill [facility] 1.2.840. 114 [id number] Univers 12:13:00 14:11:00 Rao Childs 350.1.13.10 it[place] [id number] [facility] [address] [place] 2023-02-01 2023-02-01 Telephone [facility] 1.2.071.956 [id number] Univers 00:00:00 00:00:00 [place] ARANDA 350.1.13.10 [place] [id number] Tx dical NAL 059 [facility] 2023-01-31 2023-01-31 Office [facility] 1.2.840.114 [id number] Univers 13:40:00 13:50:00 Visit Rogerzaheer ROSI 350.1.13.10 ity of [place] [id number] Tx dicak ADITYA 9 [facility] 2023-01-31 2023-01-31 Tank Welder Farnaz, Adc Lab Main [facility] 1.2.8 40.114 [id number] Univers 12:15:00 12:30:00 Visit SyJ[place] 350.1.13.10 ity of [place] [id number] Tx richakirk ADITYA 353 [facility] 2023-01-31 2023-01-31 [facility] [id number] Univers 12:15:00 12:15:00 [place] perez o f [facility] 2023-01-25 2023-01-25 Telephone [facility] 1.2.668.081 [id number] Univers 00:00:00 00:00:00 Rogerzaheer ROSI 350.1.13.10 [place] [id number] Tx dickirk NAL 9 [facility] 2023-01-16 2023-01-16 Telephone [facility] 1.2.920.341 [id number] Univers 00:00:00 00:00:00 [place] ARANDA 350.1.13.10 [place] [id number] Tx dical NAL 059 [facility] 2023-01-14 2023-01-14 Transition ALESIA Mulligan 1.2.840.114 [id number] Univers 00:00:00 00:00:00 of Care Jeremy MARIAY 350.1.13.10 [place] [id number] [address] 2023-01-06 2023-01-11 Inpatient X [facility] [id number] Univers 17:42:00 18:20:00 AL HEMYACA, [facility] ity of [facility] 2023-01-06 2023-01-11 Hospital Babita Iglesias 1.2.840. 114 [id number] Univers 17:42:00 18:20:00 Encounter Rao Childs 350.1.13.10 ity of [facility] 4.2.7.2.686 [place] RamonaFelipe [id number] [address] 2023-01-08 2023-01-08 Telephone [facility] 1.2.732.149 [id number] Univers 00:00:00 00:00:00 [place] ARANDA 350.1.13.10 it[place] [id number] [facility] NAL [address] [place] [address] 2023-01-04 2023-01-04 Office [facility] 1.2.840.114 [id number] Univers 09:00:00 10:13:03 Visit [place] ARANDA 350.1.13.10 [place] [id number] Tx dical NAL 9 [facility] 2023-01-04 2023-01-04 Tank Welder Farnaz, Andre Lab Main [facility] 1.2.8 40.114 [id number] Univers 09:15:00 09:30:00 Visit Sy [place] ARANDA 350.1.13.10 ity [place] [id number] Tx dicak NAL 353 [facility] 2023-01-04 2023-01-04 Outpatient R SY [facility] [id number] Univers 09:15:00 09:15:00 [place] ity o f [facility] 2023-01-04 2023-01-04 Telephone [facility] 1.2.411.964 [id number] Univers 00:00:00 00:00:00 Rogerzaheer KENANJAVIER 350.1.13.10 [facility] 4.2.[place] [id number] [place] 018109 [facility] 2022-12-20 2022-12-20 Office Woodrow [facility] 1.2.840.114 [id number] Univers 16:00:00 16:00:00 Visit Cornelius ARANDA 350.1.13.10 ity of [place] [facility] [place] [id number] [facility] 059 [facility] 2022-12-20 2022-12-20 Outpatient R GEETA KOROMA [facility] [id number] Univers 16:00:00 15:54:49 GEETA KOROMA ity of [facility] 2022-12-20 2022-12-20 Orders Doctor WILLS 1.2.840.114 [id number] Univers 00:00:00 00:00:00 Only Unassigned, MIKE 350.1.13.10 ity of [facility] 4.2.7.2.686 Babak as [id number] [address] 2022-12-19 2022-12-19 [facility]ill [facility] 1.2.840.114 [id number] Univers 00:00:00 00:00:00 Catrinamerzaheer ARANDA 350.1.13.10 [place] [id number] [facility] 059 [facility] 2022-12-18 2022-12-18 Outpatient R [facility] [id number] Univers 14:00:00 15:11:16 [place] scotty o f [facility] 2022-12-18 2022-12-18 Office [facility] 1.2.840.114 [id number] Univers 14:00:00 14:10:00 Visit [place] ARANDA 350.1.13.10 ity of [facility] [place] [phone] [place] dic[place]rina [place] [id number] [facility] 2022-12-18 2022-12-18 Telephone [facility] 1.2.465.245 [id number] Univers 00:00:00 00:00:00 [place] ARANDA 350.1.13.10 ity of [facility] 4.[place] [id number] [place] dic[address] 2022-12-06 2022-12-06 Office [facility] 1.2.840.114 [id number] Univers 09:00:00 09:00:00 Visit [place] ARANDA 350.1.13.10 ity of [facility] 4.[place] [phone] [place] dic[address] 2022-12-06 2022-12-06 Outpatient R [facility] [id number] Univers 09:00:00 08:31:45 CATRINAMERZAHEER ana o abigail [facility] 2022-12-06 2022-12-06 Orders Doctor JOHANN 1.2.840.114 [id number] Univers 00:00:00 00:00:00 Only Unassigned, MIKE 350.1.13.[address] [place] [facility] 4.2.7.2.686 Babak as [id number] [address] 2022-12-05 2022-12-05 Telephone [facility] 1.2.744.633 [id number] [id number] Univers 00:00:00 00:00:00 [place] ARANDA 350.1.13.10 ity of [facility] 4.2.[place].2.[place] [id number] [place] dical NAL 059 [facility] 2022-11-30 2022-11-30 Outpatient R [facility] [id number] Univers 13:30:00 15:31:28 [place] ity o f [facility] 2022-11-30 2022-11-30 Office [facility] 1.2.840.114 [id number] Univers 13:30:00 15:31:28 Visit [place] ARANDA 350.1.13.10 ity of [place].7.2.[place] [id number] [place] dical NAL [address] [place] [address] 2022-11-30 2022-11-30 Telephone [facility] 1.2.041.865 [id number] [id number] Univers 00:00:00 00:00:00 [place] ARANDA 350.1.13.10 ity of [facility] 4.2.[place] [id number] [place] dic[address] 2022-11-25 2022-11-25 Telephone [facility] 1.2.281.337 [id number] [id number] Univers 00:00:00 00:00:00 [place] AARNDA 350.1.13.10 ity of [place] 4.2.7.2.[place] [phone] [place] dicak NAL [address] [place] [address] 2022-11-24 2022-11-24 Orders Doctor JOHANN 1.2.840.114 [id number] Univers 00:00:00 00:00:00 Only Unassigned, MIKE 350.1.13.[address] [place] [facility] 4.2.7.2.686 Babak as [id number] [address] 2022-11-22 2022-11-22 Telephone [facility] 1.2.293.562 [id number] Univers 00:00:00 00:00:00 [place] ARANDA 350.1.13.10 ity of [facility] 4.2.[place].2.[place] [phone] [place] dicak NAL 9 [facility] 2022-11-12 2022-11-12 Telephone [facility] 1.2.501.245 [id number] Univers 00:00:00 00:00:00 Qiangjun [place] 350.1.13.10 ity of [place].2.[place] [id number] [address] 2022-11-09 2022-11-09 Orders Doctor JOHANN 1.2.840.114 [id number] Univers 00:00:00 00:00:00 Only Unassigned, MIKE 350.1.13.[address] [facility] 4.2.7.2.686 Babak as [id number] [address] 2022-11-08 2022-11-08 [facility] [id number] Univers 08:00:00 08:00:00 WAYNE ity of [facility] 2022-10-24 2022-10-24 [facility] 1.2.840.114 [id number] Univers 00:00:00 00:00:00 Qiangjun [place] 350.1.13.10 ity of [facility] 4.2.7.2.[place] [id number] [address] 2022-10-19 2022-10-19 [facility] 1.2.840.114 [id number] Univers 00:00:00 00:00:00 Qiangjun [place] 350.1.13.10 ity of [facility] 4.2.[place].2.[place] [id number] [address] 2022-10-04 2022-10-04 [facility] 1.2.215.212 [id number] Univers 00:00:00 00:00:00 Qiangjun [place] 350.1.13.10 ity of [place] 4.2.7.2.[place] [id number] [address] 2022-10-04 2022-10-04 [facility] 1.2.384.998 [id number] 47154 Univers 00:00:00 00:00:00 Qiangjun [place] 350.1.13.10 ity of [place] 4.2.7.2.[place] [phone] [place]x dical NAL 059 [facility] 2022-10-04 2022-10-04 Orders Doctor JOHANN 1.2.840.114 [id number] Univers 00:00:00 00:00:00 Only Unassigned, MIKE 350.1.13.[address] [place] [facility] 4.2.7.2.686 Babak as [id number] [address] 2022-09-26 2022-09-27 [facility] [id number] [facility] 10:00:00 13:19:48 [place] scotty o f [facility] 2022-09-26 2022-09-26 Office [facility] 1.2.840.114 [id number] Univers 10:00:00 10:10:00 Visit [place] AR[place]DA 350.1.13.10 it[place] of [place] 4.2.7.2.[place] [phone] [place] dical NAL 9 [facility] 2022-09-26 2022-09-26 Tank Welder Farnaz, Andre Lab Main [facility] 1.2.8 40.114 [id number] Univers 09:45:00 10:00:00 Visit Yolande Santacruz ROSI 350.1.13.10 ity of [place] 4.2.7.2.[place] 482.9777969 Tx natasha BURGESS 353 [facility] 2022-09-26 2022-09-26 Telephone [facility] 1.2.696.570 [id number] Univers 00:00:00 00:00:00 [place] AR[place]DA 350.1.13.10 ity of [place] 4.2.7.2.[place] [id number] [place] dical NAL 059 [facility] 2022-08-29 2022-08-29 Telephone [facility] 1.2.746.558 [id number] Univers 00:00:00 00:00:00 [place] AR[place]DA 350.1.13.10 it[place] of [place] 4.2.7.2.[place] 439.8108336 [place]x dical NAL 059 [facility] 2022-08-29 2022-08-29 Telephone [facility] 1.2.736.591 [id number] Univers 00:00:00 00:00:00 [place] AR[place]DA 350.1.13.10 [place] of [place] 4.[place].7.2.[place] [id number] [place]x dical NAL 059 [facility] 2022-08-28 2022-08-28 Outpatient R SY [facility] [id number] Univers 15:40:00 16:40:51 [place] scotty o f [facility] 2022-08-28 2022-08-28 Office [facility] 1.2.840.114 [id number] Univers 15:40:00 16:40:51 Visit [place] ARANDA 350.1.13.10 ity of [facility] 4.2.7.2.[place] [phone] [place]x dical NAL 9 [facility] 2022-08-28 2022-08-28 Tank Welder Farnaz, Andre Lab Main [facility] 1.2.8 40.114 [id number] Univers 13:30:00 13:45:00 Visit [place] Dan 350.1.13.10 ity of [place] 4.2.7.2.[place] 124.5780393 Tx richakirk NAL 353 [facility] 2022-08-28 2022-08-28 Office [facility] 1.2.840.114 [id number] Univers 13:00:00 13:27:01 Visit [place] AR[place]DA 350.1.13.10 it[place] of [place] 4.2.7.2.[place] 877.2519347 [place]x dical NAL 059 [facility] 2022-08-23 2022-08-23 Orders Doctor JOHANN 1.2.840.114 [id number] Univers 00:00:00 00:00:00 Only Unassigned, MIKE 350.1.13.10 ity of [place] [facility] 4.2.7.2.686 Babak as [id number] [address] 2022-08-222022-08-22 Telephone [facility] 1.2.565.292 [id number] [id number] Univers 00:00:00 00:00:00 [place] AR[place]DA 350.1.13.10 [place]y of [place].2.7.2.[place] 972.5940352 Tx dical NAL 059 [facility] 2022-08-01 2022-08-01 Outpatient R [facility] [id number] Univers 10:11:06 23:59:00 JOSEPH ity of [facility] 2022-08-01 2022-08-01 [facility] 1.2.840.114 [id number] Univers 10:11:06 23:59:00 Encounter Joseph Manzo KENANJAVIER 350.1.13.10 it[place] of [place].2.7.2.[place] C[place] [id number] [facility] [address] [place] 2022-08-01 2022-08-01 Office [facility] 1.2.840.114 [id number] Univers 15:50:00 16:00:00 Visit [place] ARANDA 350.1.13.10 ity of [place].2.7.2.[place] 101.2241631 Tx dical NAL 059 [facility] 2022-08-01 2022-08-01 Tank Welder Farnaz, Adc Lab Main [facility] 1.2.8 40.114 [id number] Univers 11:00:00 11:15:00 Visit [place] Dan 350.1.13.10 ity of [place] 4.2.7.2.[place] 276.7412908 [place]x dical NAL 353 [facility] 2022-08-01 2022-08-01 Telephone [facility] 1.2.119.509 [id number] [id number] Univers 00:00:00 00:00:00 [place] AR[place]DA 350.1.13.10 ity of [place] 4.[place].7.2.[place] 098.2088715 Tx dical NAL 059 [facility] 2022-07-31 2022-07-31 Telephone [facility] 1.2.484.939 [id number] [id number] Univers 00:00:00 00:00:00 [place] SPOKANE 350.1.13.10 ity of [place] 4.2.7.2.686 Babakdavion manzo ESSIO 279.2822229 [place]x dical NAL 059 [facility] 2022-07-10 2022-07-10 Office Sy, 1.2.840.1 [id number] Univers 13:00:00 14:24:58 Visit [place] 67321.1.1 ity of 3.104.2.7 [place] .3.879151 Medica l .8 [place] 2022-07-10 2022-07-10 Out[facility] [id number] Univers 13:00:00 13:00:00 [place] perez o f [facility] 2022-07-10 2022-07-10 Tank Welder Sy, [place] 1.2.840.1 [id number] Univers 10:00:00 10:15:00 Visit Pofredy, Adc Lab Main 09418.1.1 ity of 3.104.2.7 [place] .3.202645 Medica l .8 [place] 2022-07-10 2022-07-10 Orders Doctor 1.2.840.4 [id number] Univers 00:00:00 00:00:00 Only Unassigned, 00187.1.1 ity of [place] 3.104.2.7 [place] .3.809384 Medica l .8 [place] 2022-07-10 2022-07-10 Telephone Sy, 1.2.840.8 [id number] Univers 00:00:00 00:00:00 [place] 04484.1.1 ity of 3.104.2.7 [place] .3.893412 Medica l .8 [place] 2022-06-25 2022-06-25 Outpatient R SY, [facility] [id number] Univers 15:40:00 16:09:43 [place] perez o f [facility] 2022-06-25 2022-06-25 Office Sy, 1.2.840.6 [id number] Univers 15:40:00 16:09:43 Visit [place] 35269.1.1 ity of 3.104.2.7 [place] .3.538643 Medica l .8 [place] 2022-06-25 2022-06-25 Tank Welder [place] Dan 1.2.840.1 [id number] Univers 11:45:00 12:00:00 Visit Pofredy, Adc Lab Main 25503.1.1 ity of 3.104.2.7 [place] .3.850452 Medica l .8 [place] 2022-06-25 2022-06-25 Office Sy, 1.2.840.4 [id number] Univers 11:20:00 11:20:00 Visit [place] 64513.1.1 ity of 3.104.2.7 [place] .3.688103 Medica l .8 [place] 2022-06-25 2022-06-25 Telephone Sy, 1.2.840.7 [id number] Univers 00:00:00 00:00:00 [place] 78421.1.1 ity of 3.104.2.7 [place] .3.123468 Medica l .8 [place] 2022-06-25 2022-06-25 Travel 1.2.840.1 1.2.110.840 7847 [id number] Univers 00:00:00 00:00:00 81566.1.1 350.1.13.10 ity of 3.104.2.7 4.[place].7.3.698 [place] .3.502260 084.8 Medica l .8 [place] 2022-06-13 2022-06-13 Transition Isaak, 1.2.840.9 [id number] Univers 00:00:00 00:00:00 of Care Jeremy A 58057.1.1 it y of 3.104.2.7 [place] .3.601180 Medica l .8 [place] 2022-06-06 2022-06-12 Inpatient R MARIIA CARDONA [facility] [id number] Univers 17:19:00 12:24:00 MARIIA CARDONA ity of [facility] 2022-06-06 2022-06-12 Hospital Al Hemyari, 1.2.840.6 [id number] Univers 17:19:00 12:24:00 Encounter Vashtiruthann 52938.1.1 it y of 3.104.2.7 [place] .3.308851 Medica l .8 [place] 2022-06-06 2022-06-06 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 [place] Dan 1.2.840.1 [id number] Univers 10:15:00 10:30:00 Visit Pob, Adc Lab Main 20230.1.1 ity of [place], [place] 3.104.2.7 [place] .3.294740 Medica l .8 [place] 2022-06-06 2022-06-06 Telephone Sy, 1.2.840.0 [id number] Univers 00:00:00 00:00:00 [place] 07478.1.1 ity of 3.104.2.7 [place] .3.116470 Medica l .8 [place] 2022-06-06 2022-06-06 Travel 1.2.840.1 1.2.366.436 6670 [id number] Univers 00:00:00 00:00:00 29906.1.1 350.1.13.10 ity of 3.104.2.7 4.2.7.3.698 [place] .3.627924 084.8 Medica l .8 [place] 2022-06-05 2022-06-05 Telephone Sewani, 1.2.840.1 [id number] 100 [id number] Univers 00:00:00 00:00:00 Wayne 21016.1.1 ity of 3.104.2.7 [place] .3.055326 Medica l .8 [place] 2022-05-29 2022-05-29 Telephone Sewani, 1.2.840.0 [id number] 100 [id number] Univers 00:00:00 00:00:00 Wayne 97865.1.1 ity of 3.104.2.7 [place] .3.582509 Medica l .8 [place] 2022-05-18 2022-05-27 [facility] Sean Graham [facility] [id number] [facility] 08:42:00 16:40:00 Encounter Adhdanii, Vinayak Evans [facility], [facility], [facility], [facility] Meaghan Leyva 2022-05-18 2022-05-27 Inpatient ER SCAR, [facility] Medical ICU [id number] [facility] 08:42:00 16:40:00 MEAGHAN 2022-05-18 2022-05-27 Hospital ER Sean Graham [facility] [id number] [facility] 08:42:00 16:40:00 Encounter Vinayak Cook [facility], [facility], [facility], [facility], Meaghan Leyva 2022-05-19 2022-05-19 Travel [facility] [id number] [facility] 00:[facility] 00:00:00 [facility] 2022-05-19 2022-05-19 Travel [facility] [id number] [facility] 00:[facility] 00:00:00 [facility] 2022-05-18 2022-05-18 Orders [facility] [id number] 00:00:00 00:00:00 Only [facility] 2022-05-18 2022-05-18 Telephone Santos [facility] [id number] 00:[facility]00 00:00:00 [facility] 2022-05-18 2022-05-18 Orders [facility] [id number] 00:00:00 00:00:00 Only [facility] 2022-05-18 2022-05-18 Telephone Santos [facility] [id number] [address] 00:00[facility]00 00:00:00 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 [place] 1.2.840.1 [id number] Univers 10:30:00 10:45:00 Visit Pob, Adc Lab Main 08858.1.1 ity of 3.104.2.7 [place] .3.787186 Medica l .8 [place] 2022-05-09 2022-05-09 [facility] [id number] Univers 10:30:00 10:30:00 [place] perez o f [facility] 2022-05-09 2022-05-09 Orders Doctor 1.2.840.2 [id number] Univers 00:00:00 00:00:00 Only Unassigned, 62623.1.1 ity of [place] 3.104.2.7 [place] .3.544558 Medica l .8 [place] 2022-05-09 2022-05-09 Telephone Sy, 1.2.840.7 [id number] Univers 00:00:00 00:00:00 [place] 71926.1.1 ity of 3.104.2.7 [place] .3.091377 Medica l .8 [place] 2022-04-12 2022-04-12 [facility] [id number] Univers 11:00:00 11:00:00 WAYNE ity of [facility] 2022-04-12 2022-04-12 Outpatient R HIMA, [facility] [id number] Univers 11:00:00 11:00:00 WAYNE ity of [facility] 2022-04-11 2022-04-11 Tank Welder [place] 1.2.840.1 [id number] Univers 09:45:00 10:00:00 Visit Pob, Adc Lab Main 20235.1.1 ity of 3.104.2.7 [place] .3.390957 Medica l .8 [place] 2022-04-11 2022-04-11 Outpatient R SY [facility] [id number] Univers 09:45:00 09:45:00 [place] perez o f [facility] 2022-04-11 2022-04-11 Orders Doctor 1.2.840.4 [id number] Univers 00:00:00 00:00:00 Only Unassigned, 82537.1.1 ity of [place] 3.104.2.7 [place] .3.208090 Medica l .8 [place] 2022-04-11 2022-04-11 Telephone Sy, 1.2.840.9 [id number] [id number] Univers 00:00:00 00:00:00 [place] 25831.1.1 ity of 3.104.2.7 [place] .3.903602 Medica l .8 [place] 2022-03-30 2022-03-30 Refill Sy, 1.2.840.9 [id number] 733 Univers 00:00:00 00:00:00 [place] 12012.1.1 ity of 3.104.2.7 [place] .3.479219 Medica l .8 [place] 2022-03-15 2022-03-15 Telephone [place], 1.2.840.3 [id number] [id number] Univers 00:00:00 00:00:00 [place] 53042.1.1 ity of 3.104.2.7 [place] .3.253393 Medica l .8 [place] 2022-03-14 2022-03-14 Tank Welder [place] 1.2.840.1 [id number] Univers 09:30:00 09:45:00 Visit Pob, Adc Lab Main 99836.1.1 ity of 3.104.2.7 [place] .3.966103 Medica l .8 [place] 2022-03-14 2022-03-14 Outpatient [facility] [id number] Univers 09:30:00 09:30:00 [place] perez o f [facility] 2022-03-14 2022-03-14 Orders Doctor 1.2.840.2 [id number] Univers 00:00:00 00:00:00 Only Unassigned, 62992.1.1 ity of [place] 3.104.2.7 [place] .3.808305 Medica l .8 [place] 2022-03-14 2022-03-14 Telephone Sy, 1.2.840.5 [id number] [id number] Univers 00:00:00 00:00:00 [place] 47108.1.1 ity of 3.104.2.7 [place] .3.441106 Medica l .8 [place] 2022-02-28 2022-02-28 Tank Welder 1, Adc Lab [facility] 1.2.840.114 [id number] Univers 13:30:00 13:45:00 Visit Sy [place] ARANDA 350.1.13.10 ity of [facility] 4.2.7.2.[place] [id number] [facility] [address] [place] 2022-02-28 2022-02-28 Outpatient R [facility] [id number] Univers 13:00:00 13:20:24 [place] perez o f [facility] 2022-02-28 2022-02-28 Office [facility] 1.2.840.114 [id number] Univers 13:00:00 13:20:24 Visit [place] ARANDA 350.1.13.10 ity of [facility] 4.2.7.2.686 [facility] [id number] Tx dical NAL 059 [facility] 2022-02-28 2022-02-28 Outpatient [facility] [id number] Univers 13:00:00 13:00:00 [place] ity o f [facility] 2022-02-28 2022-02-28 Outpatient R [facility], [facility] [id number] Univers 13:00:00 13:00:00 [place] ity o abigail [facility] 2022-02-28 2022-02-28 Outpatient R SY, [facility] [id number] Univers 13:00:00 13:00:00 [place] ana o abigail [facility] 2022-02-28 2022-02-28 Orders Doctor JOHANN 1.2.840.114 [id number] Univers 00:00:00 00:00:00 Only Unassigned, MIKE 350.1.13.10 ity of [place] [facility] 4.2.7.2.686 Babak as [id number] [address] 2022-02-28 2022-02-28 Telephone [facility] 1.2.288.550 [id number] 4977 Univers 00:00:00 00:00:00 [place] ARANDA 350.1.13.10 ity of [facility] 4.2.7.2.[place] 232.7350348 T[place] dical NAL 059 [facility] 2022-02-14 2022-02-14 Tank Welder Farnaz, Adc Lab Main [facility] 1.2.8 40.114 [id number] Univers 09:45:00 10:00:00 Visit Catrina Danmerzaheer ROSI 350.1.13.10 ity of [facility] 4.2.7.2.[place] 242.2631987 [place] dical NAL 353 [facility] 2022-02-14 2022-02-14 Outpatient R [facility], [facility] [id number] Univers 09:45:00 09:45:00 [place] perez o [facility] 2022-02-14 2022-02-14 Orders Doctor WILLS 1.2.840.114 [id number] Univers 00:00:00 00:00:00 Only Unassigned, MIKE 350.1.13.10 ity of [place] [facility] 4.2.7.2.686 Babak as [id number] [address] 2022-02-14 2022-02-14 Telephone [facility] 1.2.664.811 [id number] Univers 00:00:00 00:00:00 Qiamerzaheer [place] 350.1.13.10 ity of [place] 4.2.7.2.[place] 123.0012080 Tx dical NAL 059 [facility] 2022-02-13 2022-02-13 Refill [facility] 1.2.840.114 [id number] Univers 00:00:00 00:00:00 Qiangjun [place] 350.1.13.10 ity of [place] 4.2.7.2.[place] 498.8622693 Tx dical NAL 059 [facility] 2022-01-27 2022-01-27 [facility] 1.2.448.338 0440 1113 Univers 00:00:00 00:00:00 Qiangjun [place] 350.1.13.10 ity of [place] 4.2.7.2.[place] [id number] [facility] NAL 059 [facility] 2022-01-25 2022-01-25 Tank Welder Farnaz, Adc Lab Main [facility] 1.2.8 40.114 [id number] Univers 08:45:00 09:00:00 Visit [place] DanJAVIER 350.1.13.10 ity of [place] 4.2.7.2.686 [place] 439.4550217 T[place] dical NAL 353 [facility] 2022-01-25 2022-01-25 [facility] [id number] Univers 08:45:00 08:45:00 [place] ity o f [facility] 2022-01-19 2022-01-19 Tank Welder Farnaz, Adc Lab Main [facility] 1.2.8 40.114 [id number] Univers 12:30:00 12:45:00 Visit [place] DanTON 350.1.13.10 [place] [id number] [place]ical NAL 353 [facility] 2022-01-19 2022-01-19 [facility] [id number] [facility] 12:30:00 12:30:00 [place] perez o f [facility] 2022-01-19 2022-01-19 [facility]phone [facility] 1.2.885.155 [id number] Univers 00:00:00 00:00:00 [place] ARANDA 350.1.13.10 it[place] [id number] [place]ical NAL 9 [facility] 2022-01-17 2022-01-17 Tank Welder Farnaz, Adc Lab Main [facility] 1.2.8 40.114 [id number] Univers 08:45:00 09:00:00 Visit [place] Dan 350.1.13.10 [place] [phone] [facility] [address] [place] [address] 2022-01-17 2022-01-17 [facility] [id number] Univers 08:45:00 08:45:00 [place] perez o f [facility] 2022-01-17 2022-01-17 [facility]phone [facility] 1.2.941.159 [id number] Univers 00:00:00 00:00:00 [place] ARANDA 350.1.13.10 [place] [id number] [facility] NAL [address] [place] [address] 2021-12-28 2021-12-28 Tank Welder Farnaz, Adc Lab Main [facility] 1.2.8 40.114 [id number] Univers 10:30:00 10:45:00 Visit Yolande Santacruz 350.1.13.10 it[place] of [place].2.[place] [phone] [place] dical NAL [address] [place] [address] 2021-12-28 2021-12-28 [facility] [id number] Univers 10:30:00 10:30:00 YOLANDE perez [facility] 2021-12-28 2021-12-28 Telephone YANY Dan 1.2.518.017 [id number] Univers 00:00:00 00:00:00 Qiamerjun PEDIATRIC 350.1.13.10 [place] [phone] [facility] 059 [facility] 2021-12-15 2021-12-15 Telephone [facility] 1.2.716.599 [id number] Univers 00:00:00 00:00:00 Qiajuan [place] 350.1.13.10 it[place] 4[place]2.7.2.[place] [phone] [place] dic[address] 2021-12-15 2021-12-15 Telephone [facility] 1.2.801.267 [id number] Univers 00:00:00 00:00:00 [place] ARANDA 350.1.13.10 [place] 4[place]2.[place] [phone] [place] dic[address] 2021-12-15 2021-12-15 [facility]ill [facility] 1.2.840.114 [id number] Univers 00:00:00 00:00:00 [place] ARANDA 350.1.13.10 [place] 4[place] [id number] [place] [id number] [facility] 2021-12-14 2021-12-14 Tank Welder Farnaz, Adc Lab Main [facility] 1.2.8 40.114 [id number] Univers 12:30:00 12:45:00 Visit [place] Dan 350.1.13.10 [place] 4[place]2.[place].2.[place] [phone] [facility] 353 [facility] 2021-12-14 2021-12-14 [facility] [id number] Univers 12:30:00 12:30:00 [place] perez o f [facility] 2021-12-14 2021-12-14 Orders Doctor WILLS 1.2.840.114 [id number] Univers 00:00:00 00:00:00 Only Unassigned, MIKE 350.1.13.10 ity of [facility] 4.2.7.2.686 [place] as [phone] [facility] [address] 2021-12-04 2021-12-04 Tank Welder Andre Osei Lab Main [facility] 1.2.8 40.114 [id number] Univers 14:15:00 14:30:00 Visit Sy [place] ARANDA 350.1.13.10 ity of [place] [id number] Tx dical NAL 353 [facility] 2021-12-04 2021-12-04 Outpatient R [facility] [id number] Univers 14:15:00 14:15:00 [place] ity o f [facility] 2021-12-04 2021-12-04 Outpatient R [facility], [facility] [id number] Univers 14:15:00 14:15:00 CATRINAJUAN tylery o f [facility] 2021-12-04 2021-12-04 Transition ALESIA Gamez 1.2.840.114 [id number] Univers 00:00:00 00:00:00 of Care Georgie MARIAY 350.1.13.10 it y of [place] 4.2.7.2.[place] [id number] [facility] [address] 2021-12-04 2021-12-04 Telephone [facility] 1.2.787.843 [id number] Univers 00:00:00 00:00:00 [place] ARANDA 350.1.13.10 ity of [place] [id number] Tx dical NAL 059 [facility] 2021-11-23 2021-12-01 Inpatient R REBECA HOLCOMB [facility] MCA 10 [id number] Univers 15:31:00 14:11:00 REBECA HOLCOMB ity of [facility] 2021-11-23 2021-12-01 [facility] SHAYAN Holcomb 1.2.003.767 [id number] Univers 15:31:00 14:11:00 Encounter Rebeca MCKEON 350.1.13.[address] [facility] 4.2.7.2.686 Babak as [phone] [facility] [address] [place] 2021-12-01 2021-12-01 Telephone [facility] 1.2.528.246 [id number] Univers 00:00:00 00:00:00 Wayneabigail ARANDA 350.1.13.10 i ty of [place] 4.[place] [id number] Tx dical NAL 059 [facility] 2021-11-23 2021-11-23 Orders Doctor JOHANN 1.2.840.114 [id number] Univers 00:00:00 00:00:00 Only Unassigned, MIKE 350.1.13.[address] [place] [facility] 4.2.7.2.686 Babak as [id number] [facility] [address] [place] 2021-11-22 2021-11-22 Tank Welder Farnaz, Adc Lab Main [facility] 1.2.8 40.114 [id number] Univers 07:45:00 08:00:00 Visit [place] Dan 350.1.13.10 ity of [place] [phone] Tx dical NAL 353 [facility] 2021-11-22 2021-11-22 Outpatient R [facility] [id number] Univers 07:45:00 07:45:00 [place] perez o f [facility] 2021-11-22 2021-11-22 Outpatient R [facility], [facility] [id number] Univers 07:45:00 07:45:00 [place] perez o f [facility] 2021-11-20 2021-11-20 Telephone [facility] 1.2.246.798 [id number] Univers 00:00:00 00:00:00 [place] ARANDA 350.1.13.10 ity of [place] [id number] Tx dical NAL 059 [facility] 2021-11-10 2021-11-10 Tank Welder Farnaz, Adc Lab Main [facility] 1.2.8 40.114 [id number] Univers 16:45:00 17:00:00 Visit [place] Dan 350.1.13.10 ity of [place] 4.2.[place].2.[place] [id number] Tx dickirk ON LICENSE OF [facility] 353 [facility] 2021-11-10 2021-11-10 Outpatient R SY, [facility] [id number] Univers 16:45:00 16:45:00 [place] perez o [facility] 2021-11-10 2021-11-10 Outpatient R SY, [facility] [id number] Univers 16:45:00 16:45:00 [place] perez o [facility] 2021-11-10 2021-11-10 [facility]phone [facility] 1.2.711.184 [id number] Univers 00:00:00 00:00:00 [place] ARANDA 350.1.13.10 ity of [place] 4.[place] [id number] [facility] 059 [facility] 2021-11-07 2021-11-07 Telephone [facility] 1.2.840.114 [id number] Univers 00:00:00 00:00:00 h, Tar Stylistpick 350.1.13.10 i ty of [place] 4.2.7.2.686 [place] [id number] [facility] [address] OFFICE BUILDING 2021-11-06 2021-11-06 Tank Welder Andre Osei Lab Main [facility] 1.2.8 40.114 [id number] Univers 13:15:00 13:30:00 Visit [place] Dan 350.1.13.10 ity of [place] 4.2.[place] [phone] [facility] 353 [facility] 2021-11-06 2021-11-06 Outpatient R SY, [facility] [id number] Univers 13:15:00 13:15:00 [place] perez o [facility] 2021-11-06 2021-11-06 Outpatient R SY, [facility] [id number] Univers 13:15:00 13:15:00 ROGERZAHEER ana o [facility] 2021-11-06 2021-11-06 [facility]phone [facility] 1.2.685.714 [id number] Univers 00:00:00 00:00:00 [place] ARANDA 350.1.13.10 ity of [place] [phone] [facility] 059 [facility] 2021-11-06 2021-11-06 Telephone [facility] 1.2.369.033 [id number] Univers 00:00:00 00:00:00 Wayne HEALTH 350.1.13.10 it y of [place] 4[place]2.7.2.[place] [id number] [address] OFFICE BUILDING 2021-11-03 2021-11-03 [facility] [id number] Univers 15:00:00 15:40:28 WAYNE ity [facility] 2021-11-03 2021-11-03 [facility] [id number] Univers 15:00:00 15:40:28 WAYNE ity [facility] 2021-11-03 2021-11-03 [facility] 1.2.840.114 [id number] Univers 15:00:00 15:20:00 Visit Wayne KENANJAVIER 350.1.13.10 i ty [facility] 4.2.7.2.[place] [phone] [address] 2021-11-03 2021-11-03 Outpatient R HIMA [facility] [id number] Univers 15:00:00 15:00:00 WAYNE ity [facility] 2021-11-03 2021-11-03 Tank Welder Farnaz, Andre Lab Main [facility] 1.2.8 40.114 [id number] Univers 14:30:00 14:45:00 Visit [place] Dan 350.1.13.10 ity of [place] 4.2.7.2.[place] [phone] [facility] 353 [facility] 2021-11-03 2021-11-03 [facility] [id number] Univers 11:00:00 11:00:00 WAYNE ity [facility] 2021-11-03 2021-11-03 Outpatient R HIMA [facility] [id number] Univers 11:00:00 11:00:00 WAYNE ity [facility] 2021-11-03 2021-11-03 Outpatient R HIMA, [facility] [id number] Univers 11:00:00 11:00:00 WAYNE ity [facility] 2021-11-03 2021-11-03 Telephone [facility] 1.2.276.348 [id number] Univers 00:00:00 00:00:00 [place] 350.1.13.10 ity of [place] 4.2.7.2.[place] [id number] Tx dical NAL 9 [facility] 2021-10-25 2021-10-25 Refill [facility] 1..840.114 [id number] Univers 00:00:00 00:00:00 [place] 350.1.13.10 ity of [place] 4.2.7.2.[place] [id number] Tx dical NAL 059 [facility] 2021-10-23 2021-10-23 Tank Welder Farnaz, Andre Lab Main [facility] 1.2.8 40.114 [id number] Univers 10:15:00 10:30:00 Visit Sy [place] 350.1.13.10 ity of [place] 4.2.7.2.[place] [phone] Tx dical NAL 353 [facility] 2021-10-23 2021-10-23 [facility] [id number] Univers 10:15:00 10:15:00 [place] scotty o f [facility] 2021-10-23 2021-10-23 [facility] [id number] Univers 10:15:00 10:15:00 [place] scotty o f [facility] 2021-10-23 2021-10-23 Orders Doctor WILLS 1.2.840.114 [id number] Univers 00:00:00 00:00:00 Only Unassigned, MIKE 350.1.13.[address] [facility] 4.2.7.2.686 Babak as [phone] [address] 2021-10-23 2021-10-23 [facility]ill [facility] 1.2.840.114 [id number] Univers 00:00:00 00:00:00 Qiajuan [place] 350.1.13.10 ity [facility] 4.2.7.2.[place] [id number] Tx dical NAL 059 [facility] 2021-10-23 2021-10-23 Telephone [facility] 1.2.902.802 [id number] 1983 [facility] 00:00:00 00:00:00 Qiamerzaheer [place] 350.1.13.10 ity [facility] 4.2.7.2.[place] [phone] Tx dical NAL 059 [facility] 2021-10-18 2021-10-18 Tank Welder Farnaz, Adc Lab Main [facility] 1.2.8 40.114 [id number] Univers 09:30:00 09:45:00 Visit Sy [place] ARANDA 350.1.13.10 ity [facility] 4.2.7.2.[place] [id number] Tx dical NAL 353 [facility] 2021-10-18 2021-10-18 Outpatient R [facility] [id number] Univers 09:30:00 09:30:00 JAMAICA ity o f [facility] 2021-10-18 2021-10-18 Outpatient R [facility] [id number] Univers 09:30:00 09:30:00 ROGERJUN ity o f [facility] 2021-10-18 2021-10-18 Telephone [facility] 1.2.973.434 [id number] [facility] 00:00:00 00:00:00 Rogerzaheer [place] 350.1.13.10 ity [facility] 4.2.7.2.[place] [id number] Tx dical NAL 059 [facility] 2021-10-13 2021-10-13 Tank Welder Farnaz, Adc Lab Main [facility] 1.2.8 40.114 [id number] Univers 10:45:00 11:00:00 Visit [place] 350.1.13.10 ity of [place] 4.2.7.2.[place] [phone] Tx dical NAL 353 [facility] 2021-10-13 2021-10-13 Outpatient R SY, [facility] [id number] Univers 10:45:00 10:45:00 QIANGJUN ity o f [facility] 2021-10-13 2021-10-13 Outpatient R SY, [facility] [id number] Univers 10:45:00 10:45:00 QIANGJUN ity o [facility] 2021-10-13 2021-10-13 Telephone [facility] 1.2.131.503 [id number] Univers 00:00:00 00:00:00 [place] 350.1.13.10 ity of [place] 4.2.[place] [id number] Tx dical NAL 059 [facility] 2021-09-27 2021-09-27 Tank Welder Farnaz, Adc Lab Main [facility] 1.2.8 40.114 [id number] Univers 10:15:00 10:30:00 Visit [place] DanTON 350.1.13.10 ity of [place] 4.2.7.2.[place] [id number] Tx dical NAL 353 [facility] 2021-09-27 2021-09-27 Outpatient R SY, [facility] [id number] Univers 10:15:00 10:15:00 QIANGJUN ity o [facility] 2021-09-27 2021-09-27 Outpatient R SY, [facility] [id number] Univers 10:15:00 10:15:00 QIANGJUN ity o f [facility] 2021-09-27 2021-09-27 Telephone [facility] 1.2.863.009 [id number] Univers 00:00:00 00:00:00 Qiajuan [place] 350.1.13.10 ity of [place] 4.2.7.2.[place] [id number] Tx dical NAL 059 [facility] 2021-09-27 2021-09-27 Telephone [facility] 1.2.106.639 [id number] Univers 00:00:00 00:00:00 [place] 350.1.13.10 ity of [place] 4.2.7.2.[place] [id number] Tx dical NAL 9 [facility] 2021-09-21 2021-09-21 Refill [facility] 1.2.840.114 [id number] Univers 00:00:00 00:00:00 [place] 350.1.13.10 ity of [place] 4.2.[place].2.[place] [id number] Tx dical NAL 059 [facility] 2021-09-01 2021-09-01 [facility] 1.2.262.723 [id number] Univers 00:00:00 00:00:00 [place] 350.1.13.10 ity of [place] 4.2.[place].2.[place] [id number] Tx dical NAL 9 [facility] 2021-08-30 2021-08-30 Tank Welder Farnaz, Andre Lab Main [facility] 1.2.8 40.114 [id number] Univers 09:00:00 09:15:00 Visit [place] Dan 350.1.13.10 ity of [place] 4.2.7.2.[place] [id number] Tx dical NAL 353 [facility] 2021-08-30 2021-08-30 Outpatient R SY, [facility] [id number] Univers 09:00:00 09:00:00 [place] perez o [facility] 2021-08-30 2021-08-30 Outpatient R SY, [facility] [id number] Univers 09:00:00 09:00:00 [place] perez o f [facility] 2021-08-30 2021-08-30 Orders Doctor WILLS 1.2.840.114 [id number] Univers 00:00:00 00:00:00 Only Unassigned, MIKE 350.1.13.[address] [facility] 4.2.7.2.686 Babak as [phone] [address] 2021-08-30 2021-08-30 Telephone Sy, [facility] 1.2.433.083 [id number] Univers 00:00:00 00:00:00 [place] ARANDA 350.1.13.10 [facility] [facility] 4.2.7.2.[place] [phone] Tx dical NAL 059 [facility] 2021-08-28 2021-08-28 Office Sy, [facility] 1.2.840.114 [id number] Univers 10:40:00 10:49:42 Visit [place] ARANDA 350.1.13.10 ity [facility] 4.2.7.2.[place] [id number] Tx dical NAL 059 [facility] 2021-08-28 2021-08-28 Outpatient R SY, [facility] [id number] Univers 10:40:00 10:49:42 [place] perez o [facility] 2021-08-28 2021-08-28 Outpatient R SY, [facility] [id number] Univers 10:40:00 10:40:00 [place] perez o [facility] 2021-08-28 2021-08-28 Outpatient R SY, [facility] [id number] Univers 10:40:00 10:40:00 [place] perez o [facility] 2021-08-16 2021-08-16 Tank Welder Farnaz, Adc Lab Main [facility] 1.2.8 40.114 [id number] Univers 12:15:00 12:30:00 Visit [place] Dan 350.1.13.10 ity [facility] 4.2.7.2.[place] [id number] Tx dical NAL 353 [facility] 2021-08-16 2021-08-16 Outpatient R SY, [facility] [id number] Univers 12:15:00 12:15:00 [place] perez o [facility] 2021-08-16 2021-08-16 Outpatient R [facility] [id number] Univers 12:15:00 12:15:00 [place] tylery o f [facility] 2021-08-16 2021-08-16 Orders Doctor JOHANN 1.2.840.114 [id number] Univers 00:00:00 00:00:00 Only Unassigned, MIKE 350.1.13.10 ity of [place] [facility] 4.2.7.2.686 Babak as [id number] [address] 2021-08-16 2021-08-16 Telephone [facility] 1.2.390.572 [id number] Univers 00:00:00 00:00:00 Catrinamerzaheer ROSI 350.1.13.10 ity [facility] 4.2.7.2.[place] [id number] Tx dical NAL 059 [facility] 2021-08-02 2021-08-02 Tank Welder Farnaz, Adc Lab Main [facility] 1.2.8 40.114 [id number] Univers 09:00:00 09:15:00 Visit [place] Dan 350.1.13.10 ity of [facility] 4.2.7.2.[place] [id number] Tx dical NAL 353 [facility] 2021-08-02 2021-08-02 Outpatient R [facility] [id number] Univers 09:00:00 09:00:00 CATRINAMERZAHEER scotty o abigail [facility] 2021-08-02 2021-08-02 Outpatient R [facility] [id number] Univers 09:00:00 09:00:00 J[place] tylery o abigail [facility] 2021-08-02 2021-08-02 Orders Doctor JOHANN 1.2.840.114 [id number] Univers 00:00:00 00:00:00 Only Unassigned, MIKE 350.1.13.10 ity of [place] [facility] 4.2.7.2.686 Babak as [id number] [address] 2021-08-02 2021-08-02 Telephone [facility] 1.2.946.154 [id number] Univers 00:00:00 00:00:00 Qiamerjun [place] 350.1.13.10 ity of [place] 4.2.7.2.[place] [id number] Tx dical NAL 059 [facility] 2021-07-10 2021-07-10 Refill [facility] 1.2.840.114 [id number] Univers 00:00:00 00:00:00 Qiangjun [place] 350.1.13.10 ity of [place] 4.2.7.2.[place] [id number] Tx dical NAL 059 [facility] 2021-07-05 2021-07-05 Tank Welder Farnaz, Adc Lab Main [facility] 1.2.8 40.114 [id number] Univers 09:30:00 09:45:00 Visit [place] 350.1.13.10 ity of [place] 4.2.7.2.[place] [id number] Tx dical NAL 353 [facility] 2021-07-05 2021-07-05 Outpatient R [facility] [id number] Univers 09:30:00 09:30:00 QIANGJUN ity o f [facility] 2021-07-05 2021-07-05 Outpatient R [facility] [id number] Univers 09:30:00 09:30:00 QIANGJUN ity o f [facility] 2021-07-05 2021-07-05 Telephone [facility] 1.2.293.306 [id number] [facility] 00:00:00 00:00:00 Qiamerjun [place] 350.1.13.10 ity of [place] 4.2.7.2.[place] [id number] Tx dical NAL 059 [facility] 2021-06-15 2021-06-15 Tank Welder Farnaz, Adc Lab Main [facility] 1.2.8 40.114 [id number] [facility] 09:45:00 10:00:00 Visit [place] Dan [place] 350.1.13.10 ity of [place] 4.2.7.2.[place] [id number] Tx dical NAL 353 [facility] 2021-06-15 2021-06-15 Outpatient R [facility], [facility] [id number] Univers 09:45:00 09:23:22 [place] scotty o f [facility] 2021-06-15 2021-06-15 Outpatient R [facility], [facility] [id number] Univers 09:45:00 09:23:22 CATRINAJUAN ity o f [facility] 2021-06-15 2021-06-15 Orders Doctor JOHANN 1.2.840.114 [id number] Univers 00:00:00 00:00:00 Only Unassigned, MIKE 350.1.13.[address] [facility] 4.2.7.2.686 Babak as [phone] [place] [address] [address] 2021-06-15 2021-06-15 Telephone YANY Dan 1.2.495.493 [id number] Univers 00:00:00 00:00:00 [place] PEDIATRIC 350.1.13.10 [place] of [place] [id number] [facility] PRIMARY 059 [facility] 2021-05-31 2021-05-31 Tank Welder Farnaz, Adc Lab Main [facility] 1.2.8 40.114 [id number] Univers 10:45:00 11:00:00 Visit [place] 350.1.13.10 ity of [place] 4.2.[place].2.[place] [id number] Tx dical ON LICENSE OF [facility] 353 [facility] 2021-05-31 2021-05-31 Office [facility] 1.2.840.114 [id number] Univers 10:00:00 10:33:12 Visit [place] ARANDA 350.1.13.10 ity of [place] 4.2.7.2.[place] [id number] [facility] [address] [place] [address] 2021-05-31 2021-05-31 [facility] [id number] Univers 10:00:00 10:33:12 ROGERZAHEER tylery o f [facility] 2021-05-31 2021-05-31 Outpatient R [facility] [id number] Univers 10:00:00 10:00:00 [place] perez o f [facility] 2021-05-31 2021-05-31 Telephone Sy, [facility] 1.2.173.157 [id number] Univers 00:00:00 00:00:00 [place] ARANDA 350.1.13.10 [facility] [facility] 4.2.7.2.[place] [phone] Tx dical NAL 059 [facility] 2021-05-26 2021-05-26 Emergency X JAKE, K [facility] ERT [id number] Univers 17:30:00 20:34:00 ity of [facility] 2021-05-26 2021-05-26 Emergency JakeRicky [facility] 1.2.840.114 [id number] Univers 17:30:00 20:34:00 Myah ARANDA 350.1.13.10 i ty of [place] [id number] [facility] [address] [place] 2021-05-26 2021-05-26 Outpatient R SY, [facility] [id number] Univers 10:20:00 10:20:00 [place] jimenes [facility] 2021-05-26 2021-05-26 Outpatient R SY, [facility] [id number] Univers 10:20:00 10:20:00 JAMACIA perez o abigail [facility] 2021-05-10 2021-05-10 Tank Welder Farnaz, Adc Lab Main [facility] 1.2.8 40.114 [id number] Univers 08:15:00 08:30:00 Visit [place] Dan 350.1.13.10 ity [facility] 4.2.[place] [id number] Tx dical NAL 353 [facility] 2021-05-10 2021-05-10 Outpatient R SY, [facility] [id number] Univers 08:15:00 08:15:00 [place] scotty o f [facility] 2021-05-10 2021-05-10 [facility] [id number] Univers 08:15:00 08:15:00 J[place]ICA ity o f [facility] 2021-05-10 2021-05-10 Telephone [facility] 1.2.530.293 [id number] Univers 00:00:00 00:00:00 [place] 350.1.13.10 ity of [place] [id number] [facility] NAL [address] [place] [address] 2021-05-10 2021-05-10 Telephone [facility] 1.2.152.832 [id number] Univers 00:00:00 00:00:00 Qiajuan [place] 350.1.13.10 ity of [place].2.[place] [id number] [address] 2021-05-09 2021-05-09 Refill [facility] 1.2.840.114 [id number] Univers 00:00:00 00:00:00 Rogerzaheer KENANJAVIER 350.1.13.10 ity of [place]2.[place].2.[place] [phone] [facility] NAL [address] [place] [address] 2021-05-04 2021-05-04 Refill [facility] 1.2.840.114 [id number] Univers 00:00:00 00:00:00 [place] 350.1.13.10 it[place] of [place] [id number] [address] 2021-04-28 2021-04-28 Outpatient R HIMA [facility] [id number] Univers 08:40:00 09:19:00 WAYNE ity of [facility] 2021-04-28 2021-04-28 Office [facility] 1.2.840.114 [id number] Univers 08:40:00 09:19:00 Visit Wayne ROSI 350.1.13.10 i ty of [place] [id number] [address] 2021-04-28 2021-04-28 Outpatient R [facility] [id number] Univers 08:40:00 09:19:00 WAYNE ity [facility] 2021-04-28 2021-04-28 Tank Welder Farnaz, Adc Lab Main [facility] 1.2.8 40.114 [id number] Univers 08:00:00 08:15:00 Visit [place] Dan 350.1.13.10 ity [id number] [id number] [place] dical NAL 353 [facility] 2021-04-27 2021-04-27 Tank Welder Farnaz, Adc Lab Main [facility] 1.2.8 40.114 [id number] Univers 10:45:00 11:00:00 Visit [place] Dan [id number] ity [id number] [phone] [place] dic[address] 2021-04-27 2021-04-27 [facility] [id number] Univers 10:45:00 10:45:00 ROGERZAHEER tylery o f [facility] 2021-04-27 2021-04-27 Outpatient R [facility] [id number] Univers 10:45:00 10:45:00 ROGERZAHEER ity o f [facility] 2021-04-27 2021-04-27 Telephone YANY Dan [id number] Univers 00:00:00 00:00:00 [place] PEDIATRIC [id number] [id number] [phone] [place] [address] [facility] 2021-04-25 2021-04-25 Outpatient R [facility] [id number] Univers 10:20:00 10:20:00 WAYNE ity [facility] 2021-04-25 2021-04-25 [facility] [id number] Univers 10:20:00 10:20:00 WAYNE ity [facility] 2021-04-12 2021-04-12 Tank Welder Farnaz, Adc Lab Main [facility] 1.2.8 40.114 [id number] Univers 09:30:00 09:45:00 Visit Catrina Danmerzaheer ROSI 350.1.13.10 [facility] [id number] [id number] [place] dical NAL 353 [facility] 2021-04-12 2021-04-12 Outpatient R [facility] [id number] Univers 09:30:00 09:30:00 [place] scotty o f [facility] 2021-04-12 2021-04-12 Outpatient R [facility] [id number] Univers 09:30:00 09:30:00 [place] scotty o [facility] 2021-04-12 2021-04-12 Orders Doctor JOHANN [id number] [id number] Univers 00:00:00 00:00:00 Only Unassigned, MIKE 350.1.13.[address] [place] [facility] 4.2.7.2.686 Babak as [phone] [address] 2021-04-12 2021-04-12 Telephone [facility] 1.2.949.341 [id number] Univers 00:00:00 00:00:00 [place] ARANDA 350.1.13.10 [facility] [place].2.[place] [phone] [place] dical NAL 059 [facility] 2021-03-29 2021-03-29 Outpatient R [facility] [id number] Univers 11:20:00 11:20:58 [place] scotty o [facility] 2021-03-29 2021-03-29 Office [facility] 1.2.840.114 [id number] Univers 11:20:00 11:20:58 Visit Rogerzaheer ROSI 350.1.13.10 ity of [place].2.7.2.[place] [phone] Tx dical NAL 059 [facility] 2021-03-28 2021-03-28 Tank Welder Farnaz, Adc Lab Main [facility] 1.2.8 40.114 [id number] Univers 12:13:20 12:28:20 Visit [place] Dan 350.1.13.10 it[facility] [place] [phone] Tx natasha ON LICENSE OF [facility] 353 [facility] 2021-03-28 2021-03-28 Outpatient R [facility] [id number] Univers 12:15:00 12:15:00 [place] ity o [facility] 2021-03-28 2021-03-28 Outpatient R [facility] [id number] Univers 12:15:00 12:15:00 [place] scotty o [facility] 2021-03-28 2021-03-28 Orders Doctor JOHANN 1.2.840.114 [id number] Univers 00:00:00 00:00:00 Only Unassigned, MIKE 350.1.13.[address] [place] [facility] 4.2.7.2.686 Babak as [phone] [address] 2021-03-28 2021-03-28 Telephone [facility] 1.2.828.702 [id number] Univers 00:00:00 00:00:00 [place] ARANDA 350.1.13.10 ity of [place] 4.2.7.2.[place] [phone] Tx natasha ON LICENSE OF [facility] 059 [facility] 2021-03-28 2021-03-28 Refill [facility] 1.2.840.114 [id number] Univers 00:00:00 00:00:00 [place] ARANDA 350.1.13.10 ity of [place] 4.2.7.2.[place] [phone] Tx natasha BURGESS [address] [place] [address] 2021-03-20 2021-03-20 [facility] [id number] Univers 13:45:00 13:45:00 [place] scotty o [facility] 2021-03-20 2021-03-20 Outpatient R [facility] [id number] Univers 13:45:00 13:45:00 [place] ity o [facility] 2021-03-20 2021-03-20 Tank Welder Farnaz, Adc Lab Main [facility] 1.2.8 40.114 [id number] Univers 11:58:29 12:13:29 Visit [place] Dan ROSI 350.1.13.10 ity of [place] 4.2.7.2.[place] [phone] Tx dical NAL 353 [facility] 2021-03-20 2021-03-20 Telephone [facility] 1.2.828.251 [id number] Univers 00:00:00 00:00:00 [place] ARANDA 350.1.13.10 [facility] 4.2.[place] [id number] Tx dical NAL 059 [facility] 2021-03-15 2021-03-15 Outpatient Joan VILLA [facility] [id number] Univers 09:15:00 09:15:00 JOSE [facility] 2021-03-15 2021-03-15 Outpatient Joan VILLA [facility] [id number] Univers 09:15:00 09:15:00 JOSE [facility] 2021-03-15 2021-03-15 Tank Welder Farnaz, Adc Lab Main [facility] 1.2.8 40.114 [id number] Univers 08:14:37 08:29:37 Visit Jose VillaJAVIER 350.1.13. 10 ity [facility] 4.2.7.[place] [phone] Tx dical ON LICENSE OF [facility] 353 [facility] 2021-03-15 2021-03-15 Orders Doctor JOHANN 1.2.840.114 [id number] Univers 00:00:00 00:00:00 Only Unassigned, MIKE 350.1.13.[address] [place] [facility] 4.2.7.2.686 Babak as [phone] [address] 2021-03-15 2021-03-15 Telephone [facility] 1.2.608.009 [id number] Univers 00:00:00 00:00:00 [place] ARANDA 350.1.13.10 ity of [place] 4.2.7.2.[place] [phone] Tx dical NAL 059 [address] [facility] 2021-03-07 2021-03-07 Transition ALESIA Gamez 1.2.840.114 [id number] Univers 00:00:00 00:00:00 of Thao SAMANIEGO 350.1.13.10 it y of [place] 4.2.7.2.[place] [id number] [facility] [address] 2021-03-01 2021-03-06 Inpatient X FABIOLA [facility] [id number] Univers 11:31:00 15:17:00 CALEB ana [facility] 2021-03-01 2021-03-06 [facility] Jamie Deng [facility] 1.2.840.1 14 [id number] Univers 11:31:00 15:17:00 Encounter Mattbobbijanell Caleb ARANDA 350.1.13.10 ity [facility] 4.2.7.2.686 [place] [phone] [facility] [address] 2021-03-01 2021-03-01 [facility] [id number] Univers 11:31:00 11:31:00 CALEB tylerjake [facility] 2021-02-27 2021-02-27 Outpatient R SY, [facility] [id number] Univers 11:20:00 11:44:55 CATRINAJUAN ana o [facility] 2021-02-27 2021-02-27 Outpatient R SY, [facility] [id number] Univers 11:20:00 11:44:55 ROGERZAHEER ana o [facility] 2021-02-27 2021-02-27 Outpatient R SY, [facility] [id number] Univers 11:20:00 11:44:55 ROGERZAHEER tylery o [facility] 2021-02-27 2021-02-27 Outpatient R SY, [facility] [id number] Univers 11:20:00 11:44:55 [place] perez o [facility] 2021-02-27 2021-02-27 Office [facility] 1.2.840.114 [id number] Univers 10:54:32 11:44:55 Visit [place] ARANDA 350.1.13.10 ity of [place] 4.2.7.2.[place] [phone] Tx natasha NAL 059 [facility] 2021-02-27 2021-02-27 Outpatient R SY, [facility] [id number] Univers 10:30:00 10:30:00 [place] perez o [facility] 2021-02-27 2021-02-27 Outpatient R SY, [facility] [id number] Univers 10:30:00 10:30:00 [place] perez o [facility] 2021-02-27 2021-02-27 Tank Welder Farnaz, Adc Lab Main [facility] 1.2.8 40.114 [id number] Univers 09:52:58 10:07:58 Visit [place] Dan 350.1.13.10 ity of [place] 4.2.7.2.[place] [phone] [facility] 353 [facility] 2021-02-27 2021-02-27 Orders Doctor JOHANN 1.2.840.114 [id number] Univers 00:00:00 00:00:00 Only Unassigned, MIKE 350.1.13.[address] [place] [facility] 4.2.7.2.686 Babak as [phone] [address] 2021-02-27 2021-02-27 Telephone [facility] 1.2.293.526 [id number] Univers 00:00:00 00:00:00 [place] ARANDA 350.1.13.10 ity of [place] 4.2.7.2.[place] [phone] Tx dical NAL 059 [facility] 2021-02-24 2021-02-24 Outpatient R SY, [facility] [id number] Univers 10:45:00 10:45:00 [place] scotty o [facility] 2021-02-24 2021-02-24 [facility] [id number] Univers 10:45:00 10:45:00 [place] ity o [facility] 2021-02-24 2021-02-24 Tank Welder Farnaz, Adc Lab Main [facility] 1.2.8 40.114 [id number] Univers 09:17:46 09:32:46 Visit [place] Dan 350.1.13.10 ity of [place] 4.2.7.2.[place] [id number] Tx dical NAL 353 [facility] 2021-02-24 2021-02-24 Telephone [facility] 1.2.078.289 [id number] Univers 00:00:00 00:00:00 Qiajuan [place]ON 350.1.13.10 ity of [place] 4.2.7.2.[place] [phone] Tx dical NAL 059 [facility] 2021-02-24 2021-02-24 Telephone [facility] 1.2.549.806 [id number] Univers 00:00:00 00:00:00 [place] 350.1.13.10 ity of [place] 4.2.7.2.[place] [id number] Tx dical NAL 059 [facility] 2021-02-24 2021-02-24 Telephone [facility] 1.2.787.290 [id number] Univers 00:00:00 00:00:00 Qiajuan [place] 350.1.13.10 ity of [place] 4.2.7.2.[place] [id number] Tx dical NAL 059 [facility] 2021-02-15 2021-02-15 Tank Welder Farnaz, Adc Lab Main [facility] 1.2.8 40.114 [id number] Univers 09:47:39 10:02:39 Visit [place] Dan 350.1.13.10 ity of [place] 4.2.7.2.[place] [id number] Tx dical NAL 353 [facility] 2021-02-15 2021-02-15 [facility] [id number] Univers 09:45:00 09:45:00 [place] ity o f [facility] 2021-02-15 2021-02-15 [facility] [id number] Univers 09:45:00 09:45:00 [place] ity o f [facility] 2021-02-15 2021-02-15 Orders Doctor JOHANN 1.2.840.114 [id number] Univers 00:00:00 00:00:00 Only Unassigned, MIKE 350.1.13.[address] [place] [facility] 4.2.7.2.686 Babak as [phone] [facility] [address] 2021-02-15 2021-02-15 Telephone Sy [facility] 1.2.979.415 [id number] Univers 00:00:00 00:00:00 [place] ARANDA 350.1.13.10 ity of [place] 4.2.7.2.[place] [phone] Tx dical NAL 059 [address] BUILDING 2021-02-10 2021-02-10 Transition ALESIA Gamez 1.2.840.114 [id number] Univers 00:00:00 00:00:00 of Care Georgie MARIAY 350.1.13.10 it y of [place] 4.2.7.2.686 [place] [phone] [facility] [address] 2021-02-04 2021-02-09 Inpatient X MIGUEL [facility] [id number] Univers 20:57:00 13:26:00 JENNIFER ity of [facility] 2021-02-04 2021-02-09 [facility] Jamie [facility] 1.2.840.1 14 [id number] Univers 20:57:00 13:26:00 Encounter Rao Childs 350.1.13.10 ity of [place] 4.2.7.2.686 [facility] [phone] [facility] [address] 2021-01-02 2021-01-02 Tank Welder Farnaz, Andre Lab Main [facility] 1.2.8 40.114 [id number] Univers 11:35:12 11:50:12 Visit [place] Dan 350.1.13.10 ity of [place].2.[place] [phone] Tx dical nal [address] Building 2021-01-02 2021-01-02 Outpatient R SY, [facility] [id number] Univers 11:45:00 11:45:00 [place] scottjake o abigail [facility] 2021-01-02 2021-01-02 Outpatient R SY, [facility] [id number] Univers 11:45:00 11:45:00 [place] ana o f [facility] 2021-01-02 2021-01-02 Orders Doctor JOHANN 1.2.840.114 [id number] Univers 00:00:00 00:00:00 Only Unassigned, MIKE 350.1.13.[address] [place] [facility] 4.2.7.2.686 Babak as [phone] [address] 2021-01-02 2021-01-02 Telephone [facility] 1.2.238.184 [id number] Univers 00:00:00 00:00:00 [place] Aranda 350.1.13.10 ity of [place].2.7.2.[place] [phone] Tx dical nal 059 [facility] 2021-01-02 2021-01-02 Refill [facility] 1.2.840.114 [id number] Univers 00:00:00 00:00:00 [place] Aranda 350.1.13.10 ity of [place].7.2.[place] [phone] Tx dical nal 059 [facility] 2020-12-07 2020-12-07 Tank Welder Farnaz, Andre Lab Main [facility] 1.2.8 40.114 [id number] Univers 08:05:37 08:20:37 Visit Sy Rogerzaheer Rosi 350.1.13.10 ity of [place] 4.2.7.2.[place] [phone] Tx dical nal 353 [facility] 2020-12-07 2020-12-07 [facility] [id number] Univers 08:00:00 08:00:00 [place] perez o f [facility] 2020-12-07 2020-12-07 Outpatient [facility] [id number] Univers 08:00:00 08:00:00 [place] jimenes [facility] 2020-12-07 2020-12-07 Telephone Sy, [facility] 1.2.849.906 [id number] Univers 00:00:00 00:00:00 [place] Aranda 350.1.13.10 ity kendra Latif 4.2.7.2.686 Babakdavion manzo Professio [phone] Tx dical [facility] [address] [facility] 2020-11-23 2020-11-23 Outpatient R SY, [facility] [id number] Univers 13:37:45 23:59:00 [place] perez [facility] 2020-11-23 2020-11-23 Outpatient R SY, [facility] [id number] Univers 13:37:45 23:59:00 [place] perez [facility] 2020-11-14 2020-11-14 Outpatient R SY, [facility] [id number] Univers 13:40:00 13:40:00 [place] perez [facility] 2020-10-12 2020-10-12 Outpatient R SY, [facility] [id number] Univers 08:00:00 08:00:00 [place] perez [facility] 2020-09-27 2020-09-27 Outpatient R SY, [facility] [id number] Univers 13:00:00 13:00:00 [place] perez [facility] 2020-09-22 2020-09-22 Outpatient R SY, [facility] [id number] Univers 09:30:00 09:30:00 [place] perez [facility] 2020-09-07 2020-09-07 Outpatient R SY, [facility] [id number] Univers 08:45:00 08:45:00 [place] perez [facility] 2020-08-19 2020-08-19 Outpatient R SY, [facility] [id number] Univers 08:45:00 08:45:00 [place] perez [facility] 2020-08-15 2020-08-15 Outpatient R SY, [facility] [id number] Univers 10:45:00 10:45:00 [place] scotty o f [facility] 2020-08-08 2020-08-08 Outpatient [facility] [id number] Univers 11:45:00 11:45:00 [place] scotty o f [facility] 2020-08-08 2020-08-08 Tank Welder Farnaz [facility] 1.2.840.114 [id number] 11:14:44 11:29:44 Visit Lab Main [place] 350.1.13.10 [place] 4.2.7.2.686 Professio [phone] nal 353 [facility] 2020-08-08 2020-08-08 Orders Doctor JOHANN 1.2.840.114 [id number] 00:00:00 00:00:00 Only Unassigned, MIKE 350.1.13.[address] [place] [facility] 4.2.7.2.686 [id number] 009 2020-08-08 2020-08-08 Telephone [facility] 1.2.566.238 [id number] 00:00:00 00:00:00 [place] 350.1.13.10 [place] 4.2.7.2.686 Professio [phone] nal 059 [facility] 2020-07-25 2020-07-25 [facility] 1.2.507.912 [id number] 00:00:00 00:00:00 [place] 350.1.13.10 [place] 4.2.7.2.686 Professio [phone] nal 059 [facility] 2020-07-20 2020-07-20 Outpatient R SY, [facility] [id number] Univers 11:45:00 11:45:00 [place] scotty o abigail [facility] 2020-07-20 2020-07-20 Tank Welder Farnaz, [facility] 1.2.840.114 [id number] 10:37:03 10:52:03 Visit Lab Main [place] 350.1.13.10 [place] 4.2.7.2.686 Professio [phone] nal 353 [facility] 2020-07-20 2020-07-20 Orders Doctor JOHANN 1.2.840.114 [id number] 00:00:00 00:00:00 Only Unassigned, MIKE 350.1.13.[address] [place] [facility] 4.2.7.2.686 [id number] 009 2020-07-20 2020-07-20 Telephone [facility] 1.2.609.226 [id number] 00:00:00 00:00:00 [place] Aranda 350.1.13.10 [place] 4.2.7.2.[address] Professio [id number] [address] 2020-07-13 2020-07-13 Outpatient R [facility] [id number] Univers 10:15:00 10:15:00 [place] perez o f [facility] 2020-07-13 2020-07-13 Tank Welder Farnaz [facility] 1.2.840.114 [id number] 09:23:20 09:38:20 Visit Lab Main [place] 350.1.13.10 [place] 4.2.7.2.686 Professio [phone] [address] 2020-07-13 2020-07-13 Telephone [facility] 1.2.299.977 [id number] 00:00:00 00:00:00 [place] Aranda 350.1.13.10 [place] 4.2.7.2.686 Professio [id number] [address] 2020-06-19 2020-06-19 [facility] 1.2.852.747 [id number] 00:00:00 00:00:00 [place] Aranda 350.1.13.10 [place] 4.2.7.2.686 Professio [id number] [address] 2020-06-17 2020-06-17 Tank Welder Farnaz [facility] 1.2.840.114 [id number] 09:22:55 09:37:55 Visit Lab Main [place] 350.1.13.10 [place] 4.2.7.2.686 Professio [phone] [address] 2020-06-17 2020-06-17 Outpatient R [facility] [id number] Univers 09:30:00 09:30:00 J[place] hayes [facility] 2020-06-08 2020-06-08 Telephone [facility] 1.2.936.241 [id number] 00:00:00 00:00:00 [place] 350.1.13.10 [place] 4.2.7.2.686 Professio [phone] nal 059 [facility] 2020-06-07 2020-06-07 Tank Welder Farnaz [facility] 1.2.840.114 [id number] 08:57:47 09:12:47 Visit Lab Main [place] 350.1.13.10 [place] 4.2.7.2.686 Professio [phone] nal 353 [facility] 2020-06-07 2020-06-07 Outpatient [facility] [id number] Univers 09:00:00 09:00:00 [place] jimenes [facility] 2020-05-23 2020-05-23 Outpatient [facility] [id number] Univers 09:15:00 09:15:00 [place] jimenes [facility] 2020-05-16 2020-05-16 Outpatient R [facility] [id number] Univers 11:30:00 11:30:00 [place] jimenes [facility] 2020-05-16 2020-05-16 Tank Welder Farnaz [facility] 1..840.114 81 [id number] 11:09:17 11:24:17 Visit Lab Main [place] 350.1.13.10 [place] 4.2.7.2.686 Professio [id number] nal 353 [facility] 2020-05-16 2020-05-16 Orders Doctor JOHANN 1.2.840.114 [id number] 00:00:00 00:00:00 Only Unassigned, MIKE 350.1.13.[address] [place] [facility] 4.2.7.2.686 [id number] 009 2020-05-16 2020-05-16 Telephone [facility] 1.2.809.738 [id number] 00:00:00 00:00:00 Qiangjun [place] 350.1.13.10 [place] 4.2.7.2.686 Professio [phone] [facility] 059 [facility] 2020-05-11 2020-05-11 Tank Welder Andre Osei [facility] 1.2.840.114 [id number] 09:25:07 09:40:07 Visit Lab Main [place] 350.1.13.10 [place] 4.2.7.2.[phone] [address] 2020-05-11 2020-05-11 Outpatient R MCDOWELL, [facility] [id number] Univers 09:30:00 09:30:00 SENDIL ity [facility] 2020-05-11 2020-05-11 Telephone [facility] 1.2.654.251 [id number] 00:00:00 00:00:00 Catrinamerzaheer [place] 350.1.13.10 [place] 4.2.7.2.[phone] [address] 2020-05-11 2020-05-11 Telephone [facility] 1.2.829.444 [id number] 00:00:00 00:00:00 Rogerzaheer [place] 350.1.13.10 [place] 4.2.7.2.686 Professio [id number] [address] 2020-05-04 2020-05-04 Telephone [facility] 1.2.052.901 [id number] 00:00:00 00:00:00 [place] 350.1.13.10 [place] 4.2.7.2.[address] Professio [id number] [address] 2020-05-03 2020-05-03 Outpatient R SY, [facility] [id number] Univers 11:30:00 11:30:00 [place] perez o [facility] 2020-05-03 2020-05-03 Tank Welder Farnaz [facility] 1.2.840.114 [id number] 10:05:00 10:20:00 Visit Lab Main [place] 350.1.13.10 [place] 4.2.7.2.686 Professio [phone] [address] 2020-05-03 2020-05-03 Orders Doctor JOHANN 1.2.840.114 [id number] 00:00:00 00:00:00 Only Unassigned, MIKE 350.1.13.[address] [place] [facility] 4.2.7.2.686 [id number] 009 2020-04-27 2020-04-27 Tank Welder Andre Osei [facility] 1.2.840.114 [id number] 08:24:03 08:39:03 Visit Lab Main Rosi 350.1.13.10 [place] 4.2.7.2.686 Professio [phone] [address] 2020-04-27 2020-04-27 Outpatient [facility] [id number] Univers 08:30:00 08:30:00 [place] jimenes [facility] 2020-04-27 2020-04-27 Telephone [facility] 1.2.717.079 [id number] 00:00:00 00:00:00 [place] Aranda 350.1.13.10 [place] 4.2.7.2.686 Professio [phone] [address] 2020-04-20 2020-04-20 [facility]ill [facility] 1.2.840.114 [id number] 00:00:00 00:00:00 [place] Aranda 350.1.13.10 [place] 4.2.7.2.686 Professio [phone] [address] 2020-04-01 2020-04-01 [facility] [id number] Univers 10:15:00 10:15:00 NICK perez [facility] 2020-03-29 2020-03-29 Office [facility] 1.2.840.114 [id number] 14:32:40 15:25:41 Visit [place] Aranda 350.1.13.10 [place] 4.2.7.2.686 Professio [phone] [address] 2020-03-29 2020-03-29 Outpatient [facility] [id number] Univers 14:40:00 14:40:00 QIANGJUN ity o [facility] 2020-03-22 2020-03-22 Outpatient R SY, [facility] [id number] Univers 15:30:00 15:30:00 [place] scotty o [facility] 2020-03-15 2020-03-15 Outpatient R SY, [facility] [id number] Univers 11:15:00 11:15:00 [place] scotty o [facility] 2020-02-24 2020-02-24 Outpatient R SY, [facility] [id number] Univers 08:40:00 08:40:00 [place] perez o [facility] 2020-02-17 2020-02-17 Outpatient R SY, [facility] [id number] Univers 09:15:00 09:15:00 [place] perez o [facility] 2020-01-11 2020-01-11 Outpatient R SY, [facility] [id number] Univers 12:45:00 12:45:00 [place] perez o [facility] 2019-12-17 2019-12-17 Outpatient R SY, [facility] [id number] Univers 11:00:00 11:00:00 [place] perez o [facility] 2019-11-26 2019-11-26 Outpatient R SY, [facility] [id number] Univers 12:45:00 12:45:00 [place] perez o [facility] 2019-10-30 2019-10-30 Outpatient R RADIOLOGY [facility] [id number] Univers 00:00:00 00:00:00 ity [facility] 2019-10-20 2019-10-20 Outpatient R MCDERMOTT, ALICJA [facility] [id number] Univers 09:30:00 09:30:00 ity [facility] 2019-09-30 2019-09-30 Outpatient R SY, [facility] [id number] Univers 08:30:00 08:30:00 [place] scotty o [facility] 2019-09-08 2019-09-08 Outpatient R SY, [facility] [id number] Univers 15:20:00 15:20:00 [place] ity o [facility] 2019-09-03 2019-09-03 Outpatient R SY, [facility] [id number] Univers 09:00:00 09:00:00 [place] hayes [facility] 2019-07-24 2019-07-24 Outpatient Joan DAN [facility] [id number] Univers 11:45:00 11:45:00 [place] perez o abigail [facility] 2019-06-22 2019-06-22 Outpatient Joan DAN [facility] [id number] Univers 13:30:00 13:30:00 [facility] Test Description Test Time Test Comments Results Result Comments Source TROPONIN I 2023-02-02 18:34:44 Test Item Value Reference Range Interpretation Comme nts TROPONIN I (test code = 0346425507) 0.009 ng/mL <=0.034 ROBERT (test code = [...] biotin. Lab Interpretation (test code = Normal 00534-3) [id number] 18:32:43 Test Item Value Reference Range Interpretation Comments NT-proBNP (test code = 2270 pg/mL <=125 H 34067-5) ROBERT (test code = ROBERT) Positive: Heart Failure Likely Lab Interpretation (test Abnormal code = 92679-8) [facility]:17:44 Test Item Value Reference Range Interpretation Comments MAGNESIUM (test code = 5931962536) 1.7 mg/dL 1.7-2.4 Lab Interpretation (test code = Normal 83516-8) [facility] (68687)2023-02-02 18:17:23 Test Item Value Reference Range Interpretation Comments NA (test code = 138 mmol/L 135-145 [id number]) K (test code = 3.7 mmol/L 3.5-5.0 9163801458) CL (test code = 101 mmol/L 98-108 4610922143) CO2 TOTAL (test code = 28 mmol/L 23-31 0800878137) AGAP (test code = 9 2-16 2517046124) BUN (test code = 17 mg/dL 7-23 4262478121) GLUCOSE (test code = 123 mg/dL 70-110 H 7487389356) CREATININE (test code = 1.15 mg/dL 0.50-1.04 H 4696141038) TOTAL BILI (test code = 0.9 mg/dL 0.1-1.8 2002004592) CALCIUM (test code = 9.0 mg/dL 8.6-10.6 9783078081) T PROTEIN (test code = 7.1 g/dL 6.3-8.2 5949301359) ALBUMIN (test code = 4.3 g/dL 3.5-5.0 8138781686) ALK PHOS (test code = 67 U/L 34-122 3365830309) ALTv (test code = 34 U/L 5-35 1742-6) AST(SGOT) (test code = 37 U/L 13-40 3655436753) eGFR (test code = 46.8 mL/min/1.73m2 3970414999) ROBERT (test code = ROBERT) Association of [...] tests). Lab Interpretation Abnormal (test code = 04978-2) [facility]CREAT[facility] [id number] 18:17:03 Test Item Value Reference Range Interpretation Comments CK (test code = 9142648509) 219 U/L 33-194 H Lab Interpretation (test code = Abnormal 99064-3) [facility] CenterPROTHROMBIN TIME / [id number] 18:15:22 Test Item Value Reference Range Interpretation [...] tions. Lab Interpretation (test Abnormal code = 88537-4) [facility] CenterACT[facility] THRMPLAS [id number] 18:06:03 Test Item Value Reference Range Interpretation Comments APTT Patient (test 73 See_Comment H [Automat ed code = 3173-2) message] The system which generated this result transmitted reference range : 23 - 38 Seconds . The reference range was not used to interpr et this result as normal/abnormal . ROBERT (test code = ROBERT) The [facility] patient population mean normal value for aPTT is 30 seconds. Lab Interpretation Abnormal (test code = 92104-1) [facility] CenterCBC WITH [id number] 17:55:41 Test Item Value Reference Range Interpretation [...] (test code = 64.0 fL 39.0-49.9 H 93035-0) RDW-CV (test code = 16.5 % 12.0-15.5 H 788-0) PLT (test code = 173 See_Comment [Automated 777-3) message] The sy stem which generated this result transmitted reference range : 166 - 358 10*3/ ?L. The reference r tali was not used to interpret this result as normal/abnormal . MPV (test code = 11.5 fL 9.5-12.9 53470-0) NRBC/100 WBC (test 0.0 See_Comment [Automat ed code = 3566970694) message] The system which generated this result transmitted reference range : 0.0 - 10.0 /100 WBCs. The refer ence range was not u sed to interpret th is result as normal/abnormal . NRBC x10^3 (test code See_Comment [Auto mated = 1457502148) message] The s ystem which generated this result transmitted reference range : 10*3/?L. The reference range was not used to interpret this result as normal/abnormal . GRAN MAT (NEUT) % 65.1 % (test code = 770-8) IMM GRAN % (test code 0.30 % = 5594143060) LYMPH % (test code = 20.5 % 736-9) MONO % (test code = 11.1 % 5905-5) EOS % (test code = 2.3 % 713-8) BASO % (test code = 0.7 % 706-2) GRAN MAT x10^3(ANC) 4.57 10*3/uL 1.88-7.09 (test code = 8196760234) IMM GRAN x10^3 (test 0.00-0.06 code = 8762202611) LYMPH x10^3 (test code 1.44 10*3/uL 1.32-3.29 = 731-0) MONO x10^3 (test code 0.78 10*3/uL 0.33-0.92 = 742-7) EOS x10^3 (test code = 0.16 10*3/uL 0.03-0.39 711-2) BASO x10^3 (test code 0.05 10*3/uL 0.01-0.07 = 704-7) Lab Interpretation Abnormal (test code = 69350-3) [facility] CenterHEPATIC FUNCTION PAN[facility] (98100) (ALB,T.PRO,BILI T,BU/BC,ALT,AST,ALK PHOS)2023-01-11 17:38:51 Test Item Value Reference Range Interpretation Comments TOTAL BILI (test code = 5633390368) 0.5 mg/dL 0.1-1.1 BILI UNCON (test code = 1032462654) 0.6 mg/dL 0.1-1.1 BILI CONJ (test code = 3285380721) 0.0 mg/dL 0.0-0.3 T PROTEIN (test code = 0915708883) 6.7 g/dL 6.3-8.2 ALBUMIN (test code = 8407430416) 4.1 g/dL 3.5-5.0 ALK PHOS (test code = 5147269131) 52 U/L 34-122 ALTv (test code = 1742-6) 20 U/L 5-35 AST(SGOT) (test code = 1880691580) 36 U/L 13-40 Lab Interpretation (test code = Normal 62209-2) [facility] CenterBAS[facility] (NA, K, CL, CO2, GLUCOSE, BUN, CREATININE, CA)2023-01-11 10:18:53 Test Item Value Reference Range Interpretation Comments NA (test code = 135 mmol/L 135-145 6442551333) K (test code = 4.6 mmol/L 3.5-5.0 9242106256) CL (test code = 96 mmol/L 98-108 L 1781676328) CO2 TOTAL (test code = 32 mmol/L 23-31 H 3256886753) AGAP (test code = 7 2-16 2451731314) BUN (test code = 29 mg/dL 7-23 H 5173657691) GLUCOSE (test code = 92 mg/dL 70-110 5721034148) CREATININE (test code = 1.02 mg/dL 0.50-1.04 4630936978) CALCIUM (test code = 9.4 mg/dL 8.6-10.6 7255514049) eGFR (test code = 53.7 mL/min/1.73m2 4398701399) ROBERT (test code = ROBERT) Association of [...] tests). Lab Interpretation Abnormal (test code = 35410-7) [facility] CenterMAGNESIUM2023-09-29 10:18:53 Test Item Value Reference Range Interpretation Comments MAGNESIUM (test code = 6384884202) 1.8 mg/dL 1.7-2.4 Lab Interpretation (test code = Normal 52334-2) [facility] CenterProthrombin Time / [id number] 09:53:12 Test Item Value Reference Range Interpretation Comments PROTIME PATIENT (test 32.2 See_Comment H [Auto mated message] code = 5964-2) The system [employer] ich generated this result transmitted ref erence range: 10.1 - 1 2.6 Seconds. The reference range was not used to int erpret this result as normal/abnormal . INR (test code = 6301-6) 2.7 Nor mal INR <1.1; Warfarin Therap eutic range 2.0 to 3. 0 or 2.5 to 3.5, dep ending upon the indica tions. Lab Interpretation (test Abnormal code = 81503-6) [facility] CenterCB WITH [id number] 09:49:29 Test Item Value Reference Range Interpretation Comments WBC (test code = 6.65 See_Comment [Automated 4190-2) message] The sy stem which generated this result transmitted reference range : 4.30 - 11.10 10*3/?L. The reference range was not used to interpret this result as normal/abnormal . RBC (test code = 3.63 See_Comment L [Automated 949-8) message] The sy stem which generated this [...] (test code = 65.8 fL 39.0-49.9 H 85516-6) RDW-CV (test code = 18.0 % 12.0-15.5 H 788-0) PLT (test code = 180 See_Comment [Automated 777-3) message] The sy stem which generated this result transmitted reference range : 166 - 358 10*3/ ?L. The reference r tali was not used to interpret this result as normal/abnormal . MPV (test code = 10.6 fL 9.5-12.9 11431-7) NRBC/100 WBC (test 0.0 See_Comment [Automat ed code = 0583081829) message] The system which generated this result transmitted reference range : 0.0 - 10.0 /100 WBCs. The refer ence range was not u sed to interpret th is result as normal/abnormal . NRBC x10^3 (test code See_Comment [Auto mated = 4232239662) message] The s ystem which generated this result transmitted reference range : 10*3/?L. The reference range was not used to interpret this result as normal/abnormal . GRAN MAT (NEUT) % 60.4 % (test code = 770-8) IMM GRAN % (test code 0.20 % = 7685713723) LYMPH % (test code = 26.9 % 736-9) MONO % (test code = 8.4 % 5905-5) EOS % (test code = 3.3 % 713-8) BASO % (test code = 0.8 % 706-2) GRAN MAT x10^3(ANC) 4.02 10*3/uL 1.88-7.09 (test code = 7747057713) IMM GRAN x10^3 (test 0.00-0.06 code = 0230843870) LYMPH x10^3 (test code 1.79 10*3/uL 1.32-3.29 = 731-0) MONO x10^3 (test code 0.56 10*3/uL 0.33-0.92 = 742-7) EOS x10^3 (test code = 0.22 10*3/uL 0.03-0.39 711-2) BASO x10^3 (test code 0.05 10*3/uL 0.01-0.07 = 704-7) Lab Interpretation Abnormal (test code = 53275-7) [facility] CenterProthrombin Time / [id number] 10:07:42 Test Item Value Reference Range Interpretation Comments PROTIME PATIENT (test 38.4 See_Comment H [Auto mated message] code = 5964-2) The system [employer] generated this result transmitted ref erence range: 10.1 - 1 2.6 Seconds. The reference range was not used to int erpret this result as normal/abnormal . INR (test code = 6301-6) 3.3 Nor mal INR <1.1; Warfarin Therap eutic range 2.0 to 3. 0 or 2.5 to 3.5, dep ending upon the indica tions. Lab Interpretation (test Abnormal code = 11459-2) [facility]Ba[facility] (NA, K, CL, CO2, GLUCOSE, BUN, CREATININE, CA)2023-01-10 10:06:26 Test Item Value Reference Range Interpretation Comments NA (test code = 137 mmol/L 135-145 5843912936) K (test code = 5.0 mmol/L 3.5-5.0 8573217831) CL (test code = 97 mmol/L 98-108 L 9404187053) CO2 TOTAL (test code = 32 mmol/L 23-31 H 2126604653) AGAP (test code = 8 2-16 1139492545) BUN (test code = 24 mg/dL 7-23 H 0129403021) GLUCOSE (test code = 91 mg/dL 70-110 5681126015) CREATININE (test code = 0.95 mg/dL 0.50-1.04 1768634736) CALCIUM (test code = 9.9 mg/dL 8.6-10.6 2062182050) eGFR (test code = 58.3 mL/min/1.73m2 9048501894) ROBERT (test code = ROBERT) Association of [...] tests). Lab Interpretation Abnormal (test code = 11460-8) [facility] CenterMagnesium [id number] 10:06:26 Test Item Value Reference Range Interpretation Comments MAGNESIUM (test code = 3509333925) 2.0 mg/dL 1.7-2.4 Lab Interpretation (test code = Normal 99727-4) [facility] with [id number] 09:55:42 Test Item Value Reference Range Interpretation Comments WBC (test code = 6.25 See_Comment [Automated 1941-2) message] The sy stem which generated this result transmitted reference range : 4.30 - 11.10 10*3/?L. The reference range was not used to interpret this result as normal/abnormal . RBC (test code = 3.77 See_Comment L [Automated 063-3) message] The sy stem which generated this [...] (test code = 66.2 fL 39.0-49.9 H 52572-3) RDW-CV (test code = 18.6 % 12.0-15.5 H 788-0) PLT (test code = 191 See_Comment [Automated 777-3) message] The sy stem which generated this result transmitted reference range : 166 - 358 10*3/ ?L. The reference r tali was not used to interpret this result as normal/abnormal . MPV (test code = 10.2 fL 9.5-12.9 81434-1) NRBC/100 WBC (test 0.0 See_Comment [Automat ed code = 2607862651) message] The system which generated this result transmitted reference range : 0.0 - 10.0 /100 WBCs. The refer ence range was not u sed to interpret th is result as normal/abnormal . NRBC x10^3 (test code See_Comment [Auto mated = 1739810515) message] The s ystem which generated this result transmitted reference range : 10*3/?L. The reference range was not used to interpret this result as normal/abnormal . GRAN MAT (NEUT) % 54.3 % (test code = 770-8) IMM GRAN % (test code 0.20 % = 5533660252) LYMPH % (test code = 30.9 % 736-9) MONO % (test code = 9.3 % 5905-5) EOS % (test code = 4.5 % 713-8) BASO % (test code = 0.8 % 706-2) GRAN MAT x10^3(ANC) 3.40 10*3/uL 1.88-7.09 (test code = 0265528932) IMM GRAN x10^3 (test 0.00-0.06 code = 2608310973) LYMPH x10^3 (test code 1.93 10*3/uL 1.32-3.29 = 731-0) MONO x10^3 (test code 0.58 10*3/uL 0.33-0.92 = 742-7) EOS x10^3 (test code = 0.28 10*3/uL 0.03-0.39 711-2) BASO x10^3 (test code 0.05 10*3/uL 0.01-0.07 = 704-7) Lab Interpretation Abnormal (test code = 93470-2) [facility] CenterTHYROID STIMULATING [id number] 14:28:03 Test Item Value Reference Range Interpretation Comments TSH (test code = 0.58 See_Comment Biotin has been 7948043188) reported to cau se a negative bias, interpret resul ts relative to pat ient's use of biotin. [Automated mess age] The system [employer] h generated this result transmitted ref erence range: 0.45 - 4 .70 mIU/L. The refe rence range was not u sed to interpret this result as normal/abnor mal. Lab Interpretation (test Normal code = 75639-9) [facility] CenterProthrombin Time / [id number] 11:19:12 Test Item Value Reference Range Interpretation Comments PROTIME PATIENT (test 27.0 See_Comment H [Auto mated message] code = 5964-2) The system [employer] generated this result transmitted ref erence range: 12.0 - 1 4.7 Seconds. The reference range was not used to int erpret this result as normal/abnormal . INR (test code = 6301-6) 2.6 Nor mal INR <1.1; Warfarin Therap eutic range 2.0 to 3. 0 or 2.5 to 3.5, dep ending upon the indica tions. Lab Interpretation (test Abnormal code = 21987-7) [facility] CenterCBC with [id number] 11:18:11 Test Item Value Reference Range Interpretation Comments WBC (test code = 4.52 See_Comment [Automated 5790-2) message] The sy stem which generated this [...] (test code = 65.5 fL 39.0-49.9 H 45587-7) RDW-CV (test code = 18.1 % 12.0-15.5 H 788-0) PLT (test code = 182 See_Comment [Automated 777-3) message] The sy stem which generated this result transmitted reference range : 166 - 358 10*3/ ?L. The reference r tali was not used to interpret this result as normal/abnormal . MPV (test code = 11.1 fL 9.5-12.9 42767-9) NRBC/100 WBC (test 0.0 See_Comment [Automat ed code = 3050983317) message] The system which generated this result transmitted reference range : 0.0 - 10.0 /100 WBCs. The refer ence range was not u sed to interpret th is result as normal/abnormal . NRBC x10^3 (test code See_Comment [Auto mated = 6082002152) message] The s ystem which generated this result transmitted reference range : 10*3/?L. The reference range was not used to interpret this result as normal/abnormal . GRAN MAT (NEUT) % 59.0 % (test code = 770-8) IMM GRAN % (test code 0.20 % = 1357079829) LYMPH % (test code = 25.4 % 736-9) MONO % (test code = 10.4 % 5905-5) EOS % (test code = 3.5 % 713-8) BASO % (test code = 1.5 % 706-2) GRAN MAT x10^3(ANC) 2.66 10*3/uL 1.88-7.09 (test code = 4204113055) IMM GRAN x10^3 (test 0.00-0.06 code = 3094160350) LYMPH x10^3 (test code 1.15 10*3/uL 1.32-3.29 L = 731-0) MONO x10^3 (test code 0.47 10*3/uL 0.33-0.92 = 742-7) EOS x10^3 (test code = 0.16 10*3/uL 0.03-0.39 711-2) BASO x10^3 (test code 0.07 10*3/uL 0.01-0.07 = 704-7) Lab Interpretation Abnormal (test code = 55146-1) [facility] CenterTROPONIN [id number] 10:50:07 Test Item Value Reference Range Interpretation Comments TROPONIN I (test code = 0.009 ng/mL <=0.034 8794240083) ROBERT (test code = ROBERT) Reference (Normal) [...] biotin. Lab Interpretation Normal (test code = 76713-5) [facility] CenterACTIVATED PARTIAL THRMPLAS [id number] 00:33:16 Test Item Value Reference Range Interpretation Comments APTT Patient (test 37 See_Comment [Automat ed code = 3173-2) message] The system which generated this result transmitted reference range : 23 - 38 Seconds . The reference range was not used to interpr et this result as normal/abnormal . ROBERT (test code = ROBERT) The [facility] patient population mean normal value for aPTT is 30 seconds. Lab Interpretation Normal (test code = 95690-6) [facility] CenterPROTHROMBIN TIME / [id number] 23:46:34 Test Item Value Reference Range Interpretation Comments PROTIME PATIENT (test 28.8 See_Comment H [Auto mated message] code = 5964-2) The system [employer] generated this result transmitted ref erence range: 12.0 - 1 4.7 Seconds. The reference range was not used to int erpret this result as normal/abnormal . INR (test code = 6301-6) 2.8 Nor mal INR <1.1; Warfarin Therap eutic range 2.0 to 3. 0 or 2.5 to 3.5, dep ending upon the indica tions. Lab Interpretation (test Abnormal code = 48108-3) [facility] CenterTROPONIN [id number] 23:45:54 Test Item Value Reference Range Interpretation Comments TROPONIN I (test code = 0.008 ng/mL <=0.034 9437508815) ROBERT (test code = ROBERT) Reference (Normal) [...] biotin. Lab Interpretation Normal (test code = 55389-2) [facility] CenterN-TERMINAL LIR-[id number] 23:43:34 Test Item Value Reference Range Interpretation Comments NT-proBNP (test code = 1640 pg/mL <=125 H 09196-4) ROBERT (test code = ROBERT) Positive: Heart Failure Likely Lab Interpretation (test Abnormal code = 62391-0) [facility] CenterMAGNESIUM2023-09-24 23:34:12 Test Item Value Reference Range Interpretation Comments MAGNESIUM (test code = 6749977717) 1.9 mg/dL 1.7-2.4 Lab Interpretation (test code = Normal 76551-5) [facility]. METABOLIC PANEL (44516)2023-01-06 23:33:52 Test Item Value Reference Range Interpretation Comments NA (test code = 142 mmol/L 135-145 6219584741) K (test code = 4.1 mmol/L 3.5-5.0 2181711400) CL (test code = 107 mmol/L 98-108 4798078523) CO2 TOTAL (test code = 26 mmol/L 23-31 3833187257) AGAP (test code = 9 2-16 3545607418) BUN (test code = 8 mg/dL 7-23 6536897891) GLUCOSE (test code = 119 mg/dL 70-110 H 3820057533) CREATININE (test code = 0.84 mg/dL 0.50-1.04 2329164304) TOTAL BILI (test code = 0.4 mg/dL 0.1-1.9 9487694485) CALCIUM (test code = 9.0 mg/dL 8.6-10.6 8355620265) T PROTEIN (test code = 7.1 g/dL 6.3-8.2 3360450669) ALBUMIN (test code = 4.3 g/dL 3.5-5.0 8396276664) ALK PHOS (test code = 72 U/L 34-122 4361552422) ALTv (test code = 29 U/L 5-35 1742-6) AST(SGOT) (test code = 41 U/L 13-40 H 5825233612) eGFR (test code = 67.2 mL/min/1.73m2 7303714199) ROBERT (test code = ROBERT) Association of [...] tests). Lab Interpretation Abnormal (test code = 44819-1) [facility] CenterLIPASE2023-09-24 23:33:52 Test Item Value Reference Range Interpretation Comments LIPASE (test code = 3822770836) 93 U/L 0-220 Lab Interpretation (test code = Normal 58787-8) [facility] WITH [id number] 23:20:30 Test Item Value Reference Range Interpretation Comments WBC (test code = 4.99 See_Comment [Automated 9790-2) message] The sy stem which generated this result transmitted reference range : 4.30 - 11.10 10*3/?L. The reference range was not used to interpret this result as normal/abnormal . RBC (test code = 3.58 See_Comment L [Automated 309-8) message] The sy stem which generated this [...] (test code = 66.8 fL 39.0-49.9 H 98206-9) RDW-CV (test code = 18.2 % 12.0-15.5 H 788-0) PLT (test code = 176 See_Comment [Automated 777-3) message] The sy stem which generated this result transmitted reference range : 166 - 358 10*3/ ?L. The reference r tali was not used to interpret this result as normal/abnormal . MPV (test code = 10.8 fL 9.5-12.9 49482-3) NRBC/100 WBC (test 0.0 See_Comment [Automat ed code = 8427391350) message] The system which generated this result transmitted reference range : 0.0 - 10.0 /100 WBCs. The refer ence range was not u sed to interpret th is result as normal/abnormal . NRBC x10^3 (test code See_Comment [Auto mated = 1812990486) message] The s ystem which generated this result transmitted reference range : 10*3/?L. The reference range was not used to interpret this result as normal/abnormal . GRAN MAT (NEUT) % 61.3 % (test code = 770-8) IMM GRAN % (test code 0.40 % = 6755866004) LYMPH % (test code = 26.1 % 736-9) MONO % (test code = 9.2 % 5905-5) EOS % (test code = 2.0 % 713-8) BASO % (test code = 1.0 % 706-2) GRAN MAT x10^3(ANC) 3.06 10*3/uL 1.88-7.09 (test code = 0386820006) IMM GRAN x10^3 (test 0.00-0.06 code = 0556055757) LYMPH x10^3 (test code 1.30 10*3/uL 1.32-3.29 L = 731-0) MONO x10^3 (test code 0.46 10*3/uL 0.33-0.92 = 742-7) EOS x10^3 (test code = 0.10 10*3/uL 0.03-0.39 711-2) BASO x10^3 (test code 0.05 10*3/uL 0.01-0.07 = 704-7) Lab Interpretation Abnormal (test code = 05361-3) [facility] CenterPROTHROMBIN TIME / [id number] 15:08:40 Test Item Value Reference Range Interpretation Comments PROTIME PATIENT (test 24.8 See_Comment H [Auto mated message] code = 5964-2) The system [employer] generated this result transmitted ref erence range: 12.0 - 1 4.7 Seconds. The reference range was not used to int erpret this result as normal/abnormal . INR (test code = 6301-6) 2.3 Nor mal INR <1.1; Warfarin Therap eutic range 2.0 to 3. 0 or 2.5 to 3.5, dep ending upon the indica tions. Lab Interpretation (test Abnormal code = 31710-2) [facility] CenterPROTHROMBIN TIME / [id number] 15:08:40 Test Item Value Reference Range Interpretation Comments PROTIME PATIENT (test 24.8 See_Comment H [Auto mated message] code = 5964-2) The system [employer] generated this result transmitted ref erence range: 12.0 - 1 4.7 Seconds. The reference range was not used to int erpret this result as normal/abnormal . INR (test code = 6301-6) 2.3 Nor mal INR <1.1; Warfarin Therap eutic range 2.0 to 3. 0 or 2.5 to 3.5, dep ending upon the indica tions. Lab Interpretation (test Abnormal code = 35828-6) [facility] CenterPROTHROMBIN TIME / [id number] 15:08:40 Test Item Value Reference Range Interpretation Comments PROTIME PATIENT (test 24.8 See_Comment H [Auto mated message] code = 5964-2) The system [employer] generated this result transmitted ref erence range: 12.0 - 1 4.7 Seconds. The reference range was not used to int erpret this result as normal/abnormal . INR (test code = 6301-6) 2.3 Nor mal INR <1.1; Warfarin Therap eutic range 2.0 to 3. 0 or 2.5 to 3.5, dep ending upon the indica tions. Lab Interpretation (test Abnormal code = 88483-6) [facility] CenterPROTHROMBIN TIME / [id number] 18:32:10 Test Item Value Reference Range Interpretation Comments PROTIME PATIENT (test 24.4 See_Comment H [Auto mated message] code = 5964-2) The system [employer] generated this result transmitted ref erence range: 12.0 - 1 4.7 Seconds. The reference range was not used to int erpret this result as normal/abnormal . INR (test code = 6301-6) 2.2 Nor mal INR <1.1; Warfarin Therap eutic range 2.0 to 3. 0 or 2.5 to 3.5, dep ending upon the indica tions. Lab Interpretation (test Abnormal code = 66403-8) [facility] CenterTransesophageal echo (MARGA)2022-06-11 22:45:29 Test Item Value Reference Range Interpretation Comments Height (test code = 63 in 3212952460) Weight (test code = 102 lbs 0345167911) Systolic BP (test 123 mmHg code = 5660827733) Diastolic BP (test 64 mmHg code = 7161960416) Heart Rate (test code 61 bpm = 8984215951) LVOT peak amrita (test 114.0 cm/s code = 8605321398) LVOT mn grad (test 3.0 mmHg code = 2108007824) Aortic valve mean 209.0 cm/s velocity (test code = 0896066194) Ao peak amrita (test 333.0 cm/s code = 3394709745) Ao VTI (test code = 71.7 cm 2401876006) AV LVOT peak gradient 5.2 mmHg (test code = 1066541809) LVOT peak VTI (test 29.0 cm code = 1974618819) AV Doppler amrita index 0.34 ratio VTI (test code = 9450485817) LV V1 mean (test code 82.60 cm/s = 0271408347) Ao max PG (test code 44.40 mm[Hg] = 7067558269) AV peak gradient 44.4 mmHg (test code = 4090520696) AV mean gradient 21.0 mmHg (test code = 9020648262) Radiology Study observation (narrative) (test code = 57532-9) ROBERT (test code = ROBERT) ?Aortic?Valve: Mechanical [...] captured. The probe was inserted by the legal operations manager. Probe in 0930. Probe out 0940. Moderate sedation was given. 4% Lidocaine was used for local oropharyngeal anesthesia. 1 mg of midazolam and 50 mcg of Fentanyl were administered during the study. There were no complications during the procedure. Based on abnormal findings of 2D echocardiogram, 3D was performed on an acquisition scanner for further assessment of the aortic valve. [facility] (NA, K, CL, CO2, GLUCOSE, BUN, CREATININE, CA)2022-06-11 09:30:25 Test Item Value Reference Range Interpretation Comments NA (test code = 137 mmol/L 135-145 4515762666) K (test code = 4.3 mmol/L 3.5-5.0 5530193717) CL (test code = 104 mmol/L 98-108 6106353671) CO2 TOTAL (test code = 30 mmol/L 23-31 2422773548) AGAP (test code = 3 2-16 9512301754) BUN (test code = 19 mg/dL 7-23 0521033346) GLUCOSE (test code = 102 mg/dL 70-110 4881368495) CREATININE (test code = 0.93 mg/dL 0.50-1.04 0991819441) CALCIUM (test code = 8.5 mg/dL 8.6-10.6 L 6258767654) eGFR (test code = 59.8 mL/min/1.73m2 9747376874) ROBERT (test code = ROBERT) Association of [...] tests). Lab Interpretation Abnormal (test code = 03086-3) [facility] Test Item Value Reference Range Interpretation Comments MAGNESIUM (test code = 6429196301) 2.1 mg/dL 1.7-2.4 Lab Interpretation (test code = Normal 92054-8) [facility] / [id number] 09:18:08 Test Item Value Reference Range Interpretation Comments PROTIME PATIENT (test 19.8 See_Comment H [Auto mated message] code = 5964-2) The system [employer] generated this result transmitted ref erence range: 10.1 - 1 2.6 Seconds. The reference range was not used to int erpret this result as normal/abnormal . INR (test code = 6301-6) 1.8 Nor mal INR <1.1; Warfarin Therap eutic range 2.0 to 3. 0 or 2.5 to 3.5, dep ending upon the indica tions. Lab Interpretation (test Abnormal code = 01948-6) [facility] Test Item Value Reference Range Interpretation Comments APTT Patient (test code 89 See_Comment H [Au tomated message] = 3173-2) The system [employer] generated this result transmitted ref erence range: 26 - 36 Seconds. The reference range was not used to int erpret this result as normal/abnormal . Lab Interpretation (test Abnormal code = 54589-3) [facility] Test Item Value Reference Range Interpretation Comments MAGNESIUM (test code = 0996224979) 1.8 mg/dL 1.7-2.4 Lab Interpretation (test code = Normal 00711-1) [facility] (NA, K, CL, CO2, GLUCOSE, BUN, CREATININE, CA)2022-06-10 08:57:55 Test Item Value Reference Range Interpretation Comments NA (test code = 137 mmol/L 135-145 2856002288) K (test code = 4.0 mmol/L 3.5-5.0 3580771755) CL (test code = 100 mmol/L 98-108 2529082039) CO2 TOTAL (test code = 32 mmol/L 23-31 H 5149881238) AGAP (test code = 5 2-16 1497444010) BUN (test code = 24 mg/dL 7-23 H 7255104937) GLUCOSE (test code = 116 mg/dL 70-110 H 8496464433) CREATININE (test code = 1.00 mg/dL 0.50-1.04 6626909935) CALCIUM (test code = 9.1 mg/dL 8.6-10.6 2610120954) eGFR (test code = 55.0 mL/min/1.73m2 7306793665) ROBERT (test code = ROBERT) Association of [...] tests). Lab Interpretation Abnormal (test code = 66967-7) [facility] / [id number] 08:46:38 Test Item Value Reference Range Interpretation [...] tions. Lab Interpretation (test Abnormal code = 03587-0) [facility] 08:46:38 Test Item Value Reference Range Interpretation Comments APTT Patient (test code 85 See_Comment H [Au tomated message] = 3173-2) The system ic h generated this result transmitted ref erence range: 26 - 36 Seconds. The reference range was not used to int erpret this result as normal/abnormal . Lab Interpretation (test Abnormal code = 04947-3) [facility] WITH [id number] 08:39:15 Test Item Value Reference Range Interpretation Comments WBC (test code = 4.75 See_Comment [Automated 6690-2) message] The sy stem which generated this result transmitted reference range : 4.30 - 11.10 10*3/?L. The reference range was not used to interpret this result as normal/abnormal . RBC (test code = 3.55 See_Comment L [Automated 089-8) message] The sy stem which generated this [...] (test code = 58.1 fL 39.0-49.9 H 57622-3) RDW-CV (test code = 16.1 % 12.0-15.5 H 788-0) PLT (test code = 197 See_Comment [Automated 777-3) message] The sy stem which generated this result transmitted reference range : 166 - 358 10*3/ ?L. The reference r tali was not used to interpret this result as normal/abnormal . MPV (test code = 10.2 fL 9.5-12.9 12107-8) NRBC/100 WBC (test 0.0 See_Comment [Automat ed code = 5720060043) message] The system which generated this result transmitted reference range : 0.0 - 10.0 /100 WBCs. The refer ence range was not u sed to interpret th is result as normal/abnormal . NRBC x10^3 (test code See_Comment [Auto mated = 8531464866) message] The s ystem which generated this result transmitted reference range : 10*3/?L. The reference range was not used to interpret this result as normal/abnormal . GRAN MAT (NEUT) % 58.4 % (test code = 770-8) IMM GRAN % (test code 0.20 % = 0189094458) LYMPH % (test code = 24.2 % 736-9) MONO % (test code = 10.9 % 5905-5) EOS % (test code = 5.5 % 713-8) BASO % (test code = 0.8 % 706-2) GRAN MAT x10^3(ANC) 2.77 10*3/uL 1.88-7.09 (test code = 7210380186) IMM GRAN x10^3 (test 0.00-0.06 code = 1043361328) LYMPH x10^3 (test code 1.15 10*3/uL 1.32-3.29 L = 731-0) MONO x10^3 (test code 0.52 10*3/uL 0.33-0.92 = 742-7) EOS x10^3 (test code = 0.26 10*3/uL 0.03-0.39 711-2) BASO x10^3 (test code 0.04 10*3/uL 0.01-0.07 = 704-7) Lab Interpretation Abnormal (test code = 50903-9) [facility] 10:39:27 Test Item Value Reference Range Interpretation Comments MAGNESIUM (test code = 6186947603) 1.6 mg/dL 1.7-2.4 L Lab Interpretation (test code = Abnormal 97830-8) [facility] METABOLIC PANEL (NA, K, CL, CO2, GLUCOSE, BUN, CREATININE, CA)2022-06-09 10:39:27 Test Item Value Reference Range Interpretation Comments NA (test code = 139 mmol/L 135-145 4074010398) K (test code = 4.1 mmol/L 3.5-5.0 8061747279) CL (test code = 96 mmol/L 98-108 L 4443775508) CO2 TOTAL (test code = 36 mmol/L 23-31 H 9985209445) AGAP (test code = 7 2-16 3989675929) BUN (test code = 27 mg/dL 7-23 H 6115547030) GLUCOSE (test code = 116 mg/dL 70-110 H 5626962711) CREATININE (test code = 1.21 mg/dL 0.50-1.04 H 0297269580) CALCIUM (test code = 9.3 mg/dL 8.6-10.6 0637371037) eGFR (test code = 44.1 mL/min/1.73m2 0699030842) ROBERT (test code = ROBERT) Association of [...] tests). Lab Interpretation Abnormal (test code = 79720-6) [facility] / [id number] 10:26:27 Test Item Value Reference Range Interpretation Comments PROTIME PATIENT (test 18.7 See_Comment H [Auto mated message] code = 5964-2) The system [employer] ich generated this result transmitted ref erence range: 10.1 - 1 2.6 Seconds. The reference range was not used to int erpret this result as normal/abnormal . INR (test code = 6301-6) 1.7 Nor mal INR <1.1; Warfarin Therap eutic range 2.0 to 3. 0 or 2.5 to 3.5, dep ending upon the indica tions. Lab Interpretation (test Abnormal code = 91607-6) [facility] WITH [id number] 10:16:07 Test Item Value Reference Range Interpretation Comments WBC (test code = 7.65 See_Comment [Automated 1560-2) message] The sy stem which generated this result transmitted reference range : 4.30 - 11.10 10*3/?L. The reference range was not used to interpret this result as normal/abnormal . RBC (test code = 3.99 See_Comment [Automated 295-8) message] The sy stem which generated this [...] (test code = 58.8 fL 39.0-49.9 H 93584-1) RDW-CV (test code = 16.3 % 12.0-15.5 H 788-0) PLT (test code = 244 See_Comment [Automated 777-3) message] The sy stem which generated this result transmitted reference range : 166 - 358 10*3/ ?L. The reference r tali was not used to interpret this result as normal/abnormal . MPV (test code = 10.1 fL 9.5-12.9 48513-3) NRBC/100 WBC (test 0.0 See_Comment [Automat ed code = 6399062625) message] The system which generated this result transmitted reference range : 0.0 - 10.0 /100 WBCs. The refer ence range was not u sed to interpret th is result as normal/abnormal . NRBC x10^3 (test code See_Comment [Auto mated = 7529378413) message] The s ystem which generated this result transmitted reference range : 10*3/?L. The reference range was not used to interpret this result as normal/abnormal . GRAN MAT (NEUT) % 75.8 % (test code = 770-8) IMM GRAN % (test code 0.30 % = 8391272847) LYMPH % (test code = 12.5 % 736-9) MONO % (test code = 8.5 % 5905-5) EOS % (test code = 2.0 % 713-8) BASO % (test code = 0.9 % 706-2) GRAN MAT x10^3(ANC) 5.80 10*3/uL 1.88-7.09 (test code = 9561749214) IMM GRAN x10^3 (test 0.00-0.06 code = 0725746466) LYMPH x10^3 (test code 0.96 10*3/uL 1.32-3.29 L = 731-0) MONO x10^3 (test code 0.65 10*3/uL 0.33-0.92 = 742-7) EOS x10^3 (test code = 0.15 10*3/uL 0.03-0.39 711-2) BASO x10^3 (test code 0.07 10*3/uL 0.01-0.07 = 704-7) Lab Interpretation Abnormal (test code = 55644-2) [facility]22-[facility]-07 21:12:16 Test Item Value Reference Range Interpretation Comments Height (test code = 63 in 1657222251) Weight (test code = 101 lbs 6652475886) Systolic BP (test code 127 mmHg = 8424925567) Diastolic BP (test code 43 mmHg = 9910008763) Heart Rate (test code = 50 bpm 3410402931) BSA (test code = 1.45 m2 2716129005) LVOT diameter (test 1.62 cm code = 8866815535) LVOT area (test code = 2.05 cm2 4710278617) Ao root diam (test code 2.34 cm = 4683559787) Aortic root (test code 2.34 cm = 9795270813) Ao root annulus (test 2.34 cm code = 1765436792) LA size (test code = 4.9 cm 4623229960) TR Peak Amrita (test code 209.0 cm/s = 2072522613) Triscuspid Valve 17.5 mmHg Regurgitation Peak Gradient (test code = 9722802879) PV REGURGITATION PEAK 8.9 mmHg GRADIENT (test code = 6502192827) PI dec slope (test code 81.30 cm/s2 = 0907722339) E wave decelartion time 0.26 s (test code = 3711736505) MV Peak A Amrita (test 58.0 cm/s code = 1100147000) MV Peak E Amrita (test 116.0 cm/s code = 7254390059) E/A ratio (test code = 2.00 ratio 0297162512) MR max PG (test code = 125.90 mm[Hg] 0558308209) MR max amrita (test code = 561.00 cm/s 3854611645) Mr max amrita (test code = 561.0 m/s 5133398127) MV Prop V (test code = 33.60 cm/s 3220851994) LAV(MOD-sp4) (test code 50.40 mL = 1319953798) MV E/e' septal (test 5.1 cm/s code = 3867570932) Tapse (test code = 1.37 cm 2557026523) LVOT stroke volume 42.60 cm3 (test code = 1100653297) LVOT peak amrita (test 96.3 cm/s code = 5076588936) LVOT mn grad (test code 1.6 mmHg = 2365801146) AV LVOT peak gradient 3.7 mmHg (test code = 5738917322) LVOT peak VTI (test 20.8 cm code = 5861005838) LV V1 mean (test code = 59.50 cm/s 2181695151) LA Volume Index (BP) 39.6 mL/m2 (test code = 9623617828) LA volume (BP) (test 57.2 mL code = 9153833203) LAV(MOD-sp2) (test code 59.90 mL = 2646535510) AV regurgitation 482.7 ms pressure 1/2 time (test code = 4888001700) AI dec slope (test code 212.30 cm/s2 = 5492524900) AI max amrita (test code = 349.90 cm/s 5218146116) AI max PG (test code = 49.00 mm[Hg] 0628666788) LVIDD (test code = 3.90 cm 4580504866) Left Ventricular End 66.7 mL Diastolic Volume by Teichholz Method (test code = 2062137) EF(Teich) (test code = 67.60 % 0345690897) FS (test code = 37 % 2563682168) EF - 2D (test code = 67.60 % 69799534) IVS (test code = 1.22 cm 4429376072) Interventricular Septum 1.22 cm Diastolic Thickness by 2D (test code = 0103652) LVPWD (test code = 1.12 cm 6945147317) PW (test code = 1.12 cm 0.6-1.1 5368061341) LVIDS (test code = 2.47 cm 4993679570) Left Ventricular End 21.6 mL Systolic Volume by Teichholz Method (test code = 7906050) Aortic valve mean 210.4 cm/s velocity (test code = 1813502538) Ao peak amrita (test code 307.4 cm/s = 7381799572) Ao VTI (test code = 68.2 cm 2949774957) AV area by cont VTI 0.6 cm2 (test code = 8677381849) AV area peak amrita (test 0.6 cm2 code = 1985118612) Ao max PG (test code = 37.80 mm[Hg] 3554553594) AV peak gradient (test 37.8 mmHg code = 5664411972) AV valve area (test 0.63 cm2 code = 6756586144) AV mean gradient (test 19.8 mmHg code = 5454585212) Radiology Study observation (narrative) (test code = 77536-4) ROBERT (test code = ROBERT) ?Left?Ventricle: Left [...] 2D, color flow Doppler and spectral Doppler. [facility] [id number] 05:06:36 Test Item Value Reference Range Interpretation [...] not appl icable for dialysis patien ts Patient Financial Advocate ID - ARMAND [id number] 05:06:35 Test Item Value Reference Range Interpretation Comments MAGNESIUM (BEAKER) 1.7 mg/dL 1.6-2.6 Specimen slightly (test code = 627) hemolyzed Patient Financial Advocate ID - ARMAND LPROTHROMBIN TIME/[id number] 04:57:12 Test Item Value Reference Range Interpretation [...] mechanical heart valves.CBC W/PLT COUNT & AUTO [id number] 04:49:51 Test Item Value Reference Range Interpretation [...] 0.00-1.00 PERCENT (BEAKER) (test code = 2801) [id number] 10:05:40 Test Item Value Reference Range Interpretation Comments PARTIAL THROMBOPLASTIN TIME 49.3 seconds 22.5-36.0 H (BEAKER) (test code = 760) [id number] 07:34:27 Test Item Value Reference Range Interpretation Comments PARTIAL THROMBOPLASTIN TIME > seconds 22.5-36.0 HH (BEAKER) (test code = 760) [id number] 07:21:03 Test Item Value Reference Range Interpretation Comments MAGNESIUM (BEAKER) (test code = 2.0 mg/dL 1.6-2.6 627) Patient Financial Advocate ID - PIDYLAN LBASIC METABOLIC [id number] 07:21:02 Test Item Value Reference Range Interpretation [...] not appl icable for dialysis patien ts Patient Financial Advocate ID - PIAYA LPROTHROMBIN TIME/[id number] 07:11:04 Test Item Value Reference Range Interpretation [...] mechanical heart valves.CBC W/PLT COUNT & AUTO [id number] 06:42:15 Test Item Value Reference Range Interpretation [...] 0.00-1.00 PERCENT (BEAKER) (test code = 2801) [id number] 01:06:03 Test Item Value Reference Range Interpretation Comments PARTIAL THROMBOPLASTIN TIME 90.3 seconds 22.5-36.0 H (BEAKER) (test code = 760) [id number] 23:34:15 Test Item Value Reference Range Interpretation Comments PARTIAL THROMBOPLASTIN TIME > seconds 22.5-36.0 HH (BEAKER) (test code = 760) [id number] 14:56:56 Test Item Value Reference Range Interpretation Comments PARTIAL THROMBOPLASTIN TIME 40.2 seconds 22.5-36.0 H (BEAKER) (test code = 760) [id number] 12:49:04 Test Item Value Reference Range Interpretation Comments PARTIAL THROMBOPLASTIN TIME 139.9 seconds 22.5-36.0 H (BEAKER) (test code = 760) [id number] 08:00:43 Test Item Value Reference Range Interpretation Comments MAGNESIUM (BEAKER) (test code = 1.5 mg/dL 1.6-2.6 L 627) Patient Financial Advocate ID - MARCOBASIC METABOLIC [id number] 08:00:42 Test Item Value Reference Range Interpretation [...] not appl icable for dialysis patien ts Patient Financial Advocate ID - [id number] 06:54:28 Test Item Value Reference Range Interpretation Comments PARTIAL THROMBOPLASTIN TIME 180.9 seconds 22.5-36.0 HH (BEAKER) (test code = 760) [id number] 06:30:25 Test Item Value Reference Range Interpretation Comments PARTIAL THROMBOPLASTIN TIME 61.3 seconds 22.5-36.0 H (BEAKER) (test code = 760) [id number] 04:16:14 Test Item Value Reference Range Interpretation Comments PARTIAL THROMBOPLASTIN TIME > seconds 22.5-36.0 HH (BEAKER) (test code = 760) PROTHROMBIN TIME/[id number] 03:42:33 Test Item Value Reference Range Interpretation [...] mechanical heart valves.CBC W/PLT COUNT & AUTO [id number] 03:35:52 Test Item Value Reference Range Interpretation [...] 0.00-1.00 PERCENT (BEAKER) (test code = 2801) [id number] 20:27:00 Test Item Value Reference Range Interpretation Comments PARTIAL THROMBOPLASTIN TIME 53.4 seconds 22.5-36.0 H (BEAKER) (test code = 760) [id number] 18:26:32 Test Item Value Reference Range Interpretation Comments PARTIAL THROMBOPLASTIN TIME 112.2 seconds 22.5-36.0 H (BEAKER) (test code = 760) [id number] 10:53:07 Test Item Value Reference Range Interpretation Comments PARTIAL THROMBOPLASTIN TIME 48.7 seconds 22.5-36.0 H (BEAKER) (test code = 760) [id number] 04:20:11 Test Item Value Reference Range Interpretation Comments PARTIAL THROMBOPLASTIN TIME 50.2 seconds 22.5-36.0 H (BEAKER) (test code = 760) [id number] 02:16:45 Test Item Value Reference Range Interpretation Comments PARTIAL THROMBOPLASTIN TIME 120.7 seconds 22.5-36.0 H (BEAKER) (test code = 760) [id number] 01:49:02 Test Item Value Reference Range Interpretation Comments MAGNESIUM (BEAKER) (test code = 1.7 mg/dL 1.6-2.6 627) Patient Financial Advocate ID - [id number] 01:49:02 Test Item Value Reference Range Interpretation Comments PHOSPHORUS (BEAKER) (test code = 4.7 mg/dL 2.3-4.7 604) Patient Financial Advocate ID - BSBASIC METABOLIC [id number] 01:49:01 Test Item Value Reference Range Interpretation [...] not appl icable for dialysis patien ts Patient Financial Advocate ID - BSPROTHROMBIN TIME/[id number] 01:46:19 Test Item Value Reference Range Interpretation [...] mechanical heart valves.CBC W/PLT COUNT & AUTO [id number] 01:29:16 Test Item Value Reference Range Interpretation [...] H PERCENT (BEAKER) (test code = 2801) [id number] 18:43:50 Test Item Value Reference Range Interpretation Comments PARTIAL THROMBOPLASTIN TIME 56.0 seconds 22.5-36.0 H (BEAKER) (test code = 760) [id number] 16:49:50 Test Item Value Reference Range Interpretation Comments PARTIAL THROMBOPLASTIN TIME 123.0 seconds 22.5-36.0 H (BEAKER) (test code = 760) [id number] 08:57:26 Test Item Value Reference Range Interpretation Comments PARTIAL THROMBOPLASTIN TIME 48.3 seconds 22.5-36.0 H (BEAKER) (test code = 760) [id number] 05:52:08 Test Item Value Reference Range Interpretation Comments PARTIAL THROMBOPLASTIN TIME 134.4 seconds 22.5-36.0 H (BEAKER) (test code = 760) PROTHROMBIN TIME/[id number] 05:18:02 Test Item Value Reference Range Interpretation Comments PROTIME (BEAKER) (test code = 14.1 seconds 11.9-14.2 759) INR (BEAKER) (test code = 370) 1.16 <=5.90 RECOMMENDED COUMADIN/WARFARIN INR THERAPY RANGESSTANDARD DOSE: 2.0 - 3.0 Includes: PROPHYLAXIS for venous thrombosis, systemic embolization; TREATMENT for venous thrombosis and/or pulmonary embolus.HIGH RISK: Target INR is 2.5-3.5 for patients with mechanical heart valves.[id number] 05:06:39 Test Item Value Reference Range Interpretation Comments PHOSPHORUS (BEAKER) (test code = 4.9 mg/dL 2.3-4.7 H 604) Patient Financial Advocate ID - BSBASIC METABOLIC [id number] 05:06:38 Test Item Value Reference Range Interpretation [...] not as accur ate as Creatinine Rose nidia in predicting glom erular filtration rate . Estimated GFR is not appl icable for dialysis patien ts Patient Financial Advocate ID - [id number] 05:06:38 Test Item Value Reference Range Interpretation Comments MAGNESIUM (BEAKER) (test code = 1.7 mg/dL 1.6-2.6 627) Patient Financial Advocate ID - BSCBC W/PLT COUNT & AUTO [id number] 04:48:51 Test Item Value Reference Range Interpretation [...] 0.00-1.00 PERCENT (BEAKER) (test code = 2801) [id number] 21:33:18 Test Item Value Reference Range Interpretation Comments PARTIAL THROMBOPLASTIN TIME 51.5 seconds 22.5-36.0 H (BEAKER) (test code = 760) HEMOGLOBIN AND [id number] 18:35:26 Test Item Value Reference Range Interpretation Comments HEMOGLOBIN (BEAKER) (test code = 9.5 GM/DL 11.2-15.7 L 410) HEMATOCRIT (BEAKER) (test code = 30.9 % 34.1-44.9 L 411) Patient Financial Advocate ID - [id number] 14:30:55 Test Item Value Reference Range Interpretation Comments PARTIAL THROMBOPLASTIN TIME 59.3 seconds 22.5-36.0 H (BEAKER) (test code = 760) [id number] 06:21:11 Test Item Value Reference Range Interpretation Comments PARTIAL THROMBOPLASTIN TIME 62.1 seconds 22.5-36.0 H (BEAKER) (test code = 760) PROTHROMBIN TIME/[id number] 03:22:14 Test Item Value Reference Range Interpretation Comments PROTIME (BEAKER) (test code = 14.8 seconds 11.9-14.2 H 759) INR (BEAKER) (test code = 370) 1.23 <=5.90 RECOMMENDED COUMADIN/WARFARIN INR THERAPY RANGESSTANDARD DOSE: 2.0 - 3.0 Includes: PROPHYLAXIS for venous thrombosis, systemic embolization; TREATMENT for venous thrombosis and/or pulmonary embolus.HIGH RISK: Target INR is 2.5-3.5 for patients with mechanical heart valves.[id number] 03:16:55 Test Item Value Reference Range Interpretation Comments MAGNESIUM (BEAKER) (test code = 2.2 mg/dL 1.6-2.6 627) Patient Financial Advocate ID - [id number] 03:16:55 Test Item Value Reference Range Interpretation Comments PHOSPHORUS (BEAKER) (test code = 3.8 mg/dL 2.3-4.7 604) Patient Financial Advocate ID - BSBASIC METABOLIC [id number] 03:16:54 Test Item Value Reference Range Interpretation [...] not appl icable for dialysis patien ts Patient Financial Advocate ID - BSCBC W/PLT COUNT & AUTO [id number] 02:57:48 Test Item Value Reference Range Interpretation [...] PERCENT (BEAKER) (test code = 2801) Prepare [id number] 23:54:00 Test Item Value Reference Range Interpretation Comments CROSSMATCH (test code = 2264) COMPATIBLE Unit ABO (test code = A Pos 7400331) UNIT NUMBER (test code = [id number] 934-0) Status (test code = 7332702) TX_TIMEINCHART Blood Bank Product (test code RED BLOOD CELLS = 2263) PRODUCT CODE (test code = [id number] 933-2) [id number] 23:54:00 Test Item Value Reference Range Interpretation Comments CROSSMATCH (test code = 2264) COMPATIBLE Unit ABO (test code = A Pos 5612826) UNIT NUMBER (test code = [id number] 934-0) Status (test code = 7325813) TX_TIMEINCHART Blood Bank Product (test code RED BLOOD CELLS = 2263) PRODUCT CODE (test code = E7097Y73 933-2) [facility] [id number] 23:54:00 Test Item Value Reference Range Interpretation Comments CROSSMATCH (test code = 2264) COMPATIBLE Unit ABO (test code = A Pos 6610835) UNIT NUMBER (test code = [id number] 934-0) Status (test code = 0872863) TX_TIMEINCHART Blood Bank Product (test code RED BLOOD CELLS = 2263) PRODUCT CODE (test code = Z8842T40 933-2) [facility] [id number] 23:54:00 Test Item Value Reference Range Interpretation Comments CROSSMATCH (test code = 2264) COMPATIBLE Unit ABO (test code = A Pos 3313979) UNIT NUMBER (test code = [id number] 934-0) Status (test code = 8626187) TX_TIMEINCHART Blood Bank Product (test code RED BLOOD CELLS = 2263) PRODUCT CODE (test code = W0879X32 933-2) [facility] [id number] 23:54:00 Test Item Value Reference Range Interpretation Comments CROSSMATCH (test code = 2264) COMPATIBLE Unit ABO (test code = A Pos 2051566) UNIT NUMBER (test code = [id number] 934-0) Status (test code = 1959170) TX_TIMEINCHART Blood Bank Product (test code RED BLOOD CELLS = 2263) PRODUCT CODE (test code = B1516M38 933-2) [facility] [id number] 23:54:00 Test Item Value Reference Range Interpretation Comments CROSSMATCH (test code = 2264) COMPATIBLE Unit ABO (test code = A Pos 1755269) UNIT NUMBER (test code = [id number] 934-0) Status (test code = 5337881) TX_TIMEINCHART Blood Bank Product (test code RED BLOOD CELLS = 2263) PRODUCT CODE (test code = S1684V43 933-2) [facility] [id number] 23:54:00 Test Item Value Reference Range Interpretation Comments CROSSMATCH (test code = 2264) COMPATIBLE Unit ABO (test code = A Pos 4439249) UNIT NUMBER (test code = [id number] 934-0) Status (test code = 0231530) TX_TIMEINCHART Blood Bank Product (test code RED BLOOD CELLS = 2263) PRODUCT CODE (test code = Z6216N83 933-2) [facility] [id number] 23:54:00 Test Item Value Reference Range Interpretation Comments CROSSMATCH (test code = 2264) COMPATIBLE Unit ABO (test code = A Pos 0683604) UNIT NUMBER (test code = [id number] 934-0) Status (test code = 7396303) TX_TIMEINCHART Blood Bank Product (test code RED BLOOD CELLS = 2263) PRODUCT CODE (test code = X7590K87 933-2) [facility] [id number] 23:54:00 Test Item Value Reference Range Interpretation Comments CROSSMATCH (test code = 2264) COMPATIBLE Unit ABO (test code = A Pos 5315051) UNIT NUMBER (test code = [id number] 934-0) Status (test code = 5446041) TX_TIMEINCHART Blood Bank Product (test code RED BLOOD CELLS = 2263) PRODUCT CODE (test code = G1208E57 933-2) [facility] [id number] 23:54:00 Test Item Value Reference Range Interpretation Comments CROSSMATCH (test code = 2264) COMPATIBLE Unit ABO (test code = A Pos 1223016) UNIT NUMBER (test code = [id number] 934-0) Status (test code = 5670903) TX_TIMEINCHART Blood Bank Product (test code RED BLOOD CELLS = 2263) PRODUCT CODE (test code = N5537A99 933-2) [facility]2023-02-06 23:54:00 Test Item Value Reference Range Interpretation Comments CROSSMATCH (test code = 2264) COMPATIBLE Unit ABO (test code = A Pos 8314757) UNIT NUMBER (test code = [id number] 934-0) Status (test code = 4252034) TX_TIMEINCHART Blood Bank Product (test code RED BLOOD CELLS = 2263) PRODUCT CODE (test code = K6239S04 933-2) [facility] [id number] 23:54:00 Test Item Value Reference Range Interpretation Comments CROSSMATCH (test code = 2264) COMPATIBLE Unit ABO (test code = A Pos 6638966) UNIT NUMBER (test code = [id number] 934-0) Status (test code = 5277361) TX_TIMEINCHART Blood Bank Product (test code RED BLOOD CELLS = 2263) PRODUCT CODE (test code = X2983D39 933-2) [facility] [id number] 23:54:00 Test Item Value Reference Range Interpretation Comments CROSSMATCH (test code = 2264) COMPATIBLE Unit ABO (test code = A Pos 8237705) UNIT NUMBER (test code = [id number] 934-0) Status (test code = 9610334) [place]_TIMEINCHART Blood Bank Product (test code RED BLOOD CELLS = 2263) PRODUCT CODE (test code = [id number] 933-2) [facility] [id number] 23:54:00 Test Item Value Reference Range Interpretation Comments CROSSMATCH (test code = 2264) COMPATIBLE Unit ABO (test code = A Pos 8219468) UNIT NUMBER (test code = [id number] 934-0) Status (test code = 5477528) TX_TIMEINCHART Blood Bank Product (test code RED BLOOD CELLS = 2263) PRODUCT CODE (test code = L4941E56 933-2) [facility] [id number] 23:54:00 Test Item Value Reference Range Interpretation Comments CROSSMATCH (test code = 2264) COMPATIBLE Unit ABO (test code = A Pos 2087824) UNIT NUMBER (test code = [id number] 934-0) Status (test code = 7370432) TX_TIMEINCHART Blood Bank Product (test code RED BLOOD CELLS = 2263) PRODUCT CODE (test code = C6206U08 933-2) [facility] [id number] 23:54:00 Test Item Value Reference Range Interpretation Comments CROSSMATCH (test code = 2264) COMPATIBLE Unit ABO (test code = A Pos 8354297) UNIT NUMBER (test code = [id number] 934-0) Status (test code = 9796021) [place]_TIMEINCHART Blood Bank Product (test code RED BLOOD CELLS = 2263) PRODUCT CODE (test code = E5613H06 933-2) [facility]MO[facility] AND [id number] 21:46:53 Test Item Value Reference Range Interpretation Comments HEMOGLOBIN (BEAKER) (test code = 9.0 GM/DL 11.2-15.7 L 410) HEMATOCRIT (BEAKER) (test code = 30.5 % 34.1-44.9 L 411) Patient Financial Advocate ID - [id number] Echo W/Doppler(CW/PW/Color)2022-05-21 18:02:14Ejection FractionSLEH ECHO HEARTLAB [facility] Echo W/Doppler(CW/PW/Color)2022-05-21 18:02:14Ejection FractionSLEH ECHO HEARTLAB [facility] Echo W/Doppler(CW/PW/Color) 2022-05-21 18:02:14Ejection FractionSLEH ECHO HEARTLAB [facility] Echo W/Doppler(CW/PW/Color)2022-05-21 18:02:14Ejection FractionSLEH ECHO HEARTLAB [facility] Echo W/Doppler(CW/PW/Color)2022-05-21 18:02:14Ejection FractionSLEH ECHO HEARTLAB [facility] Echo W/Doppler(CW/PW/Color) 2022-05-21 18:02:14Ejection FractionSLEH ECHO HEARTLAB [facility] Echo W/Doppler(CW/PW/Color)2022-05-21 18:02:14Ejection FractionSLEH ECHO HEARTLAB [facility] Echo W/Doppler(CW/PW/Color)2022-05-21 18:02:14Ejection FractionSLEH ECHO HEARTLAB [facility] Echo W/Doppler(CW/PW/Color) 2022-05-21 18:02:14Ejection FractionSLEH ECHO HEARTLAB [facility] Echo W/Doppler(CW/PW/Color)2022-05-21 18:02:14Ejection FractionSLEH ECHO HEARTLAB [facility] Echo W/Doppler(CW/PW/Color)2022-05-21 18:02:14Ejection FractionSLEH ECHO HEARTLAB [facility] Echo W/Doppler(CW/PW/Color) 2022-05-21 18:02:14Ejection FractionSLE ECHO HEARTLAB [facility] Echo W/Doppler(CW/PW/Color)2022-05-21 18:02:14Ejection FractionSLEH ECHO HEARTLAB [facility] Echo W/Doppler(CW/PW/Color)2022-05-21 18:02:14Ejection FractionSLEH ECHO HEARTLAB [facility] Echo W/Doppler(CW/PW/Color) 2022-05-21 18:02:14Ejection FractionSLEH ECHO [facility]ARTLAB [facility] Echo W/Doppler(CW/PW/Color)2022-05-21 18:02:14Ejection [facility]LEH [facility] 15:07:17 Test Item Value Reference Range Interpretation Comments PARTIAL THROMBOPLASTIN TIME 68.4 seconds 22.5-36.0 H (BEAKER) (test code = 760) PROTHROMBIN TIME/[id number] 15:05:56 Test Item Value Reference Range Interpretation Comments PROTIME (BEAKER) (test code = 15.5 seconds 11.9-14.2 H 759) INR (BEAKER) (test code = 370) 1.31 <=5.90 RECOMMENDED COUMADIN/WARFARIN INR THERAPY RANGESSTANDARD DOSE: 2.0 - 3.0 Includes: PROPHYLAXIS for venous thrombosis, systemic embolization; TREATMENT for venous thrombosis and/or pulmonary embolus.HIGH RISK: Target INR is 2.5-3.5 for patients with mechanical heart valves.TSH/FREE T4 IF [id number] 13:50:00 Test Item Value Reference Range Interpretation Comments THYROID STIMULATING HORMONE 1.746 uIU/mL 0.350-4.940 (BEAKER) (test code = 772) Patient Financial Advocate ID - ARMAND LHEMOGLOBIN AND [id number] 13:00:10 Test Item Value Reference Range Interpretation Comments HEMOGLOBIN (BEAKER) (test code = 9.0 GM/DL 11.2-15.7 L 410) HEMATOCRIT (BEAKER) (test code = 29.3 % 34.1-44.9 L 411) Patient Financial Advocate ID - [id number] 08:55:39 Test Item Value Reference Range Interpretation Comments PARTIAL THROMBOPLASTIN TIME 70.0 seconds 22.5-36.0 H (BEAKER) (test code = 760) [id number] 05:39:20 Test Item Value Reference Range Interpretation Comments PHOSPHORUS (BEAKER) (test code = 3.3 mg/dL 2.3-4.7 604) Patient Financial Advocate ID - MARCOBASIC METABOLIC [id number] 05:39:19 Test Item Value Reference Range Interpretation [...] not appl icable for dialysis patien ts Patient Financial Advocate ID - [id number] 05:39:19 Test Item Value Reference Range Interpretation Comments MAGNESIUM (BEAKER) (test code = 1.6 mg/dL 1.6-2.6 627) Patient Financial Advocate ID - MARCOCBC W/PLT COUNT & AUTO [id number] 05:18:48 Test Item Value Reference Range Interpretation [...] 0.00-1.00 PERCENT (BEAKER) (test code = 2801) [id number] 01:34:38 Test Item Value Reference Range Interpretation Comments PARTIAL THROMBOPLASTIN TIME 94.3 seconds 22.5-36.0 H (BEAKER) (test code = 760) PROTHROMBIN TIME/[id number] 01:32:54 Test Item Value Reference Range Interpretation Comments PROTIME (BEAKER) (test code = 15.8 seconds 11.9-14.2 H 759) INR (BEAKER) (test code = 370) 1.35 <=5.90 RECOMMENDED COUMADIN/WARFARIN INR THERAPY RANGESSTANDARD DOSE: 2.0 - 3.0 Includes: PROPHYLAXIS for venous thrombosis, systemic embolization; TREATMENT for venous thrombosis and/or pulmonary embolus.HIGH RISK: Target INR is 2.5-3.5 for patients with mechanical heart valves.HEMOGLOBIN AND [id number] 20:48:52 Test Item Value Reference Range Interpretation Comments HEMOGLOBIN (BEAKER) (test code = 8.6 GM/DL 11.2-15.7 L 410) HEMATOCRIT (BEAKER) (test code = 27.9 % 34.1-44.9 L 411) Patient Financial Advocate ID - [id number] 17:34:13 Test Item Value Reference Range Interpretation Comments PARTIAL THROMBOPLASTIN TIME 53.7 seconds 22.5-36.0 H (BEAKER) (test code = 760) PROTHROMBIN TIME/[id number] 17:33:32 Test Item Value Reference Range Interpretation Comments PROTIME (BEAKER) (test code = 16.0 seconds 11.9-14.2 H 759) INR (BEAKER) (test code = 370) 1.37 <=5.90 RECOMMENDED COUMADIN/WARFARIN INR THERAPY RANGESSTANDARD DOSE: 2.0 - 3.0 Includes: PROPHYLAXIS for venous thrombosis, systemic embolization; TREATMENT for venous thrombosis and/or pulmonary embolus.HIGH RISK: Target INR is 2.5-3.5 for patients with mechanical heart valves.[id number] 13:24:26 Test Item Value Reference Range Interpretation Comments PARTIAL THROMBOPLASTIN TIME 70.7 seconds 22.5-36.0 H (BEAKER) (test code = 760) HEMOGLOBIN AND [id number] 13:10:45 Test Item Value Reference Range Interpretation Comments HEMOGLOBIN (BEAKER) (test code = 8.4 GM/DL 11.2-15.7 L 410) HEMATOCRIT (BEAKER) (test code = 27.0 % 34.1-44.9 L 411) Patient Financial Advocate ID - 6000Prepare [id number] 08:19:00 Test Item Value Reference Range Interpretation Comments CROSSMATCH (test code = 2264) COMPATIBLE Unit ABO (test code = A Pos 1701311) UNIT NUMBER (test code = [id number] 934-0) Status (test code = 7848706) ISSUED Blood Bank Product (test code RED BLOOD CELLS = 2263) PRODUCT CODE (test code = Z0056A44 933-2) [facility] [id number] 08:19:00 Test Item Value Reference Range Interpretation Comments CROSSMATCH (test code = 2264) COMPATIBLE Unit ABO (test code = A Pos 7770753) UNIT NUMBER (test code = [id number] 934-0) Status (test code = 8501572) ISSUED Blood Bank Product (test code RED BLOOD CELLS = 2263) PRODUCT CODE (test code = C5578A57 933-2) [facility] 05:24:24 Test Item Value Reference Range Interpretation Comments PARTIAL THROMBOPLASTIN TIME 91.6 seconds 22.5-36.0 H (BEAKER) (test code = 760) [id number] 04:22:23 Test Item Value Reference Range Interpretation Comments MAGNESIUM (BEAKER) (test code = 1.8 mg/dL 1.6-2.6 627) Patient Financial Advocate ID - ARMAND [id number] 04:22:23 Test Item Value Reference Range Interpretation Comments PHOSPHORUS (BEAKER) (test code = 4.1 mg/dL 2.3-4.7 604) Patient Financial Advocate ID - ARMAND LBASIC METABOLIC [id number] 04:22:22 Test Item Value Reference Range Interpretation [...] not as accur ate as Creatinine Rose osbonre in predicting glom erular filtration rate . Estimated GFR i s not applicable for dialysis patients Patient Financial Advocate ID - PIAYA LPROTHROMBIN TIME/[id number] 03:58:55 Test Item Value Reference Range Interpretation [...] mechanical heart valves.CBC W/PLT COUNT & AUTO [id number] 03:54:23 Test Item Value Reference Range Interpretation [...] 0.00-1.00 PERCENT (BEAKER) (test code = 2801) [id number] 23:23:33 Test Item Value Reference Range Interpretation Comments PARTIAL THROMBOPLASTIN TIME 63.2 seconds 22.5-36.0 H (BEAKER) (test code = 760) HEMOGLOBIN AND [id number] 21:26:00 Test Item Value Reference Range Interpretation Comments HEMOGLOBIN (BEAKER) (test code = 7.6 GM/DL 11.2-15.7 L 410) HEMATOCRIT (BEAKER) (test code = 24.8 % 34.1-44.9 L 411) Patient Financial Advocate ID - [id number] 17:30:54 Test Item Value Reference Range Interpretation Comments PARTIAL THROMBOPLASTIN TIME 37.0 seconds 22.5-36.0 H (BEAKER) (test code = 760) PROTHROMBIN TIME/[id number] 17:29:53 Test Item Value Reference Range Interpretation Comments PROTIME (BEAKER) (test code = 18.3 seconds 11.9-14.2 H 759) INR (BEAKER) (test code = 370) 1.62 <=5.90 RECOMMENDED COUMADIN/WARFARIN INR THERAPY RANGESSTANDARD DOSE: 2.0 - 3.0 Includes: PROPHYLAXIS for venous thrombosis, systemic embolization; TREATMENT for venous thrombosis and/or pulmonary embolus.HIGH RISK: Target INR is 2.5-3.5 for patients with mechanical heart valves.PROTHROMBIN TIME/[id number] 12:31:00 Test Item Value Reference Range Interpretation Comments PROTIME (BEAKER) (test code = 18.7 seconds 11.9-14.2 H 759) INR (BEAKER) (test code = 370) 1.61 <=5.90 RECOMMENDED COUMADIN/WARFARIN INR THERAPY RANGESSTANDARD DOSE: 2.0 - 3.0 Includes: PROPHYLAXIS for venous thrombosis, systemic embolization; TREATMENT for venous thrombosis and/or pulmonary embolus.HIGH RISK: Target INR is 2.5-3.5 for patients with mechanical heart valves.HEMOGLOBIN AND [id number] 12:24:20 Test Item Value Reference Range Interpretation Comments HEMOGLOBIN (BEAKER) (test code = 7.4 GM/DL 11.2-15.7 L 410) HEMATOCRIT (BEAKER) (test code = 23.7 % 34.1-44.9 L 411) Patient Financial Advocate ID - 6000POC-Glucose [id number] 05:40:23 Test Item Value Reference Range Interpretation Comments POC-Glucose Meter (test 78 mg/dL 70-110 : TE STED AT [facility] code = 1538) [address] [place] [address], 770 30: Patient Financial Advocate/Techni valarie ID = [id number] for Yumi, James Lab Interpretation (test Normal code = 38417-9) [facility] [id number] 05:40:23 Test Item Value Reference Range Interpretation Comments POC-Glucose Meter (test 78 mg/dL 70-110 : TE STED AT [facility] code = 1538) [address] [place] [address], 770 30: Patient Financial Advocate/Techni valarie ID = [id number] for Yumi, James Lab Interpretation (test Normal code = 89327-7) [facility] [id number] 05:40:23 Test Item Value Reference Range Interpretation Comments POC-Glucose Meter (test 78 mg/dL 70-110 : TE STED AT [facility] code = 1538) [address] [place] [address], 770 30: Patient Financial Advocate/Techni valarie ID = [id number] for Yumi, James Lab Interpretation (test Normal code = 92359-5) [facility] [id number] 05:40:23 Test Item Value Reference Range Interpretation Comments POC-Glucose Meter (test 78 mg/dL 70-110 : TE STED AT [facility] code = 1538) [address] [facility], 770 30: Patient Financial Advocate/Techni valarie ID = [id number] for Yumi, James Lab Interpretation (test Normal code = 10104-9) [facility]-Glucose [id number] 05:40:23 Test Item Value Reference Range Interpretation Comments POC-Glucose Meter (test 78 mg/dL 70-110 : TE STED AT [facility] code = 1538) [address] [place] [address], 770 30: Patient Financial Advocate/Techni valarie ID = [id number] for Yumi, James Lab Interpretation (test Normal code = 87756-9) [facility]-Glucose [id number] 05:40:23 Test Item Value Reference Range Interpretation Comments POC-Glucose Meter (test 78 mg/dL 70-110 : TE STED AT [facility] code = 1538) [address] [place] [address], 770 30: Patient Financial Advocate/Techni valarie ID = [id number] for Yumi, James Lab Interpretation (test Normal code = 49176-2) [facility]-Glucose [id number] 05:40:23 Test Item Value Reference Range Interpretation Comments POC-Glucose Meter (test 78 mg/dL 70-110 : TE STED AT [facility] code = 1538) [address] [place] [address], 770 30: Patient Financial Advocate/Techni valarie ID = [id number] for Yumi, James Lab Interpretation (test Normal code = 72939-0) [facility]-Glucose [id number] 05:40:23 Test Item Value Reference Range Interpretation Comments POC-Glucose Meter (test 78 mg/dL 70-110 : TE STED AT [facility] code = 1538) [address] [place] [address], 770 30: Patient Financial Advocate/Techni valarie ID = [id number] for Yumi, James Lab Interpretation (test Normal code = 21255-5) [facility]-Glucose [id number] 05:40:23 Test Item Value Reference Range Interpretation Comments POC-Glucose Meter (test 78 mg/dL 70-110 : TE STED AT [facility] code = 1538) [address] [place] [address], 770 30: Patient Financial Advocate/Techni valarie ID = [id number] for Yumi, James Lab Interpretation (test Normal code = 02757-4) [facility] [id number] 05:40:23 Test Item Value Reference Range Interpretation Comments POC-Glucose Meter (test 78 mg/dL 70-110 : TE STED AT [facility] code = 1538) [address] [place] [address], [facility] 30: Patient Financial Advocate/Techni valarie ID = [id number] for Yumi, James Lab Interpretation (test Normal code = 07731-8) [facility]-Glucose [id number] 05:40:23 Test Item Value Reference Range Interpretation Comments POC-Glucose Meter (test 78 mg/dL 70-110 : TE STED AT [facility] code = 1538) [address] [place] [address], [facility] 30: Patient Financial Advocate/Techni valarie ID = [id number] for Yumi, James Lab Interpretation (test Normal code = 91611-5) [facility] [id number] 05:40:23 Test Item Value Reference Range Interpretation Comments POC-Glucose Meter (test 78 mg/dL 70-110 : TE STED AT [facility] code = 1538) [address] [place] [address], [facility] 30: Patient Financial Advocate/Techni valarie ID = [id number] for Yumi, James Lab Interpretation (test Normal code = 09468-8) [facility]-Glucose [id number] 05:40:23 Test Item Value Reference Range Interpretation Comments POC-Glucose Meter (test 78 mg/dL 70-110 : TE STED AT [facility] code = 1538) [address] [place] [address], [facility] 30: Patient Financial Advocate/Techni valarie ID = [id number] for Yumi, James Lab Interpretation (test Normal code = 90074-6) [facility] [id number] 05:40:23 Test Item Value Reference Range Interpretation Comments POC-Glucose Meter (test 78 mg/dL 70-110 : TE STED AT [facility] code = 1538) [address] [place] [address], [facility] 30: Patient Financial Advocate/Techni valarie ID = [id number] for Yumi, James Lab Interpretation (test Normal code = 99520-6) [facility] [id number] 05:40:23 Test Item Value Reference Range Interpretation Comments POC-Glucose Meter (test 78 mg/dL 70-110 : TE STED AT [facility] code = 1538) [address] [facility], 770 30: Patient Financial Advocate/Techni valarie ID = [id number] for YumiJames chirinos Lab Interpretation (test Normal code = 98831-5) [facility]-Glucose [id number] 05:40:23 Test Item Value Reference Range Interpretation Comments POC-Glucose Meter (test 78 mg/dL 70-110 : TE STED AT [facility] code = 1538) [address] [place] [address], 770 30: Patient Financial Advocate/Techni valarie ID = [id number] for YumiJames chirinos Lab Interpretation (test Normal code = 05657-0) [facility]-Glucose [id number] 05:40:23 Test Item Value Reference Range Interpretation Comments POC-Glucose Meter (test 78 mg/dL 70-110 : TE STED AT [facility] code = 1538) [address] [place] [address], 770 30: Patient Financial Advocate/Techni valarie ID = [id number] for YumiJames chirinos Lab Interpretation (test Normal code = 53018-0) [facility]-Glucose [id number] 05:40:23 Test Item Value Reference Range Interpretation Comments POC-Glucose Meter (test 78 mg/dL 70-110 : TE STED AT [facility] code = 1538) [address] [place] [address], 770 30: Patient Financial Advocate/Techni valarie ID = [id number] for James Eason Lab Interpretation (test Normal code = 59639-1) [facility]-GLUCOSE [id number] 05:40:23 Test Item Value Reference Range Interpretation Comments POC-GLUCOSE METER 78 mg/dL 70-110 : TESTED A T [facility] 6720 (BEAKER) (test code = [facility]38[facility] [address]: Patient Financial Advocate/Techni valarie ID = [id number] for James Cisneros [id number] 04:23:09 Test Item Value Reference Range Interpretation Comments MAGNESIUM (BEAKER) (test code = 2.1 mg/dL 1.6-2.6 627) Patient Financial Advocate ID - PIAYA TGMPVKEVVSA0817-37-56 04:23:09 Test Item Value Reference Range Interpretation Comments PHOSPHORUS (BEAKER) (test code = 1.9 mg/dL 2.3-4.7 L 604) Patient Financial Advocate ID - PIDYLAN LBASIC METABOLIC [id number] 04:23:08 Test Item Value Reference Range Interpretation [...] not appl icable for dialysis patien ts Patient Financial Advocate ID - PIAYA LPROTHROMBIN TIME/[id number] 04:07:24 Test Item Value Reference Range Interpretation [...] mechanical heart valves.CBC W/PLT COUNT & AUTO [id number] 04:00:27 Test Item Value Reference Range Interpretation [...] PERCENT (BEAKER) (test code = 2801) POCT-GLUCOSE [id number] 23:14:02 Test Item Value Reference Range Interpretation Comments POC-GLUCOSE METER 86 mg/dL 70-110 : TESTED A T [facility] 6720 (BEAKER) (test code = [place], 1538) [address]: Patient Financial Advocate/Techni valarie ID = [id number] for Robles Hanson BUN AND CREATININE W/[id number] 21:02:50 Test Item Value Reference Range Interpretation Comments BLOOD UREA 10 mg/dL 7-21 NITROGEN (BEAKER) (test code = 354) CREATININE 0.79 mg/dL 0.57-1.25 (BEAKER) (test code = 358) BUN/CREAT RATIO 13 For a normal individual on (BEAKER) (test a normal diet , the code = reference inter [place] for the [id number]) mass ratio rang es between 12:1 and [...] not appl icable for dialysis patien ts Patient Financial Advocate ID - [id number] 21:02:49 Test Item Value Reference Range Interpretation Comments MAGNESIUM (BEAKER) (test code = 2.1 mg/dL 1.6-2.6 627) Patient Financial Advocate ID - [id number] 21:02:49 Test Item Value Reference Range Interpretation Comments POTASSIUM (BEAKER) (test code = 3.7 meq/L 3.5-5.1 379) Patient Financial Advocate ID - BSHEMOGLOBIN AND [id number] 20:18:40 Test Item Value Reference Range Interpretation Comments HEMOGLOBIN (BEAKER) (test code = 7.5 GM/DL 11.2-15.7 L 410) HEMATOCRIT (BEAKER) (test code = 23.4 % 34.1-44.9 L 411) Patient Financial Advocate ID - [id number], CTA [id number] 19:41:00Unlisted Reason for Exam - Click Yes and Enter Reason Below->YesUnlisted Reason for Exam->Looking for mesenteric ischemia. [facility] : 1955 Sex: FFINAL [...] Goff MDReport Verified Date/Time: 05/18/2022 19:41:16 POCT-GLUCOSE [id number] 19:08:28 Test Item Value Reference Range Interpretation Comments POC-GLUCOSE METER 91 mg/dL 70-110 : TESTED A T [facility] 6720 (BEAKER) (test code = [place], 1538) [address]: Patient Financial Advocate/Techni valarie ID = [id number] for Scarlet Maravilla HIGH SENSITIVITY TROPONIN [id number] 16:22:26 Test Item Value Reference Range Interpretation Comments HIGH SENSITIVITY TROPONIN I (test 9 pg/ml <=17 code = 1891343) Patient Financial Advocate ID - BSThe KNITTER HAND STAT High Sensitivity Troponin-I results should be used in conjunctionwith other diagnostic information such as ECG, clinical observations and information, and patient symptoms to aid in the diagnosis of [place].Urinalysis w/Microscopic + Reflex to [id number] 16:12:56 Test Item Value Reference Range Interpretation Comments Color, UA (test code Yellow = 5778-6) Clarity, UA (test Hazy code = 5767-9) Specific [place], UA 1.045 1.001-1.035 H (test code = 5811-5) pH, UA (test code = 6.5 5.0-8.0 5803-2) Protein, UA (test 20 mg/dL Negative A code = 70286-9) Glucose, UA (test Negative Negative code = 365) Ketones, UA (test Negative Negative code = 2514-8) Bilirubin, UA (test Negative Negative code = 22359-5) Blood, UA (test code Moderate Negative A = 58858-9) Nitrite, UA (test Negative Negative code = 5802-4) Leukocytes, UA (test Large Negative A code = 5799-2) Urobilinogen, UA 0.2 0.2-1.0 (test code = 48821-8) RBC, UA (test code = 34 See_Comment [Autom ated 77753-5) message] The system which generated this result [...] . Bacteria, UA (test Few code = 40771-0) Squam Epithel, UA <1 See_Comment [Automate d (test code = 19061-3) messag e] The system which generated this result transmit bandar reference range : /HPF. The reference range was not used to interpret this result as normal/abnormal . Specimen Source (test code = 2795) ROBERT (test code = ROBERT) Patient Financial Advocate ID - [auto]Patient Financial Advocate ID - tech Lab Interpretation Abnormal (test code = 07537-6) [facility] + Reflex to Culture 2022-05-18 16:12:56 Test Item Value Reference Range Interpretation Comments Color, UA (test code Yellow = 5778-6) Clarity, UA (test Hazy code = 5767-9) Specific [place], UA 1.045 1.001-1.035 H (test code = 5811-5) pH, UA (test code = 6.5 5.0-8.0 5803-2) Protein, UA (test 20 mg/dL Negative A code = 80218-4) Glucose, UA (test Negative Negative code = 365) Ketones, UA (test Negative Negative code = 2514-8) Bilirubin, UA (test Negative Negative code = 37198-0) Blood, UA (test code Moderate Negative A = 74757-8) Nitrite, UA (test Negative Negative code = 5802-4) Leukocytes, UA (test Large Negative A code = 5799-2) Urobilinogen, UA 0.2 0.2-1.0 (test code = 95742-1) RBC, UA (test code = 34 See_Comment [Autom ated 78851-0) message] The system which generated this result [...] . Bacteria, UA (test Few code = 57861-3) Squam Epithel, UA <1 See_Comment [Automate d (test code = 54501-2) messag e] The system which generated this result transmit bandar reference range : /HPF. The reference range was not used to interpret this result as normal/abnormal . Specimen Source (test code = 2795) ROBERT (test code = ROBERT) Patient Financial Advocate ID - [auto]Patient Financial Advocate ID - tech Lab Interpretation Abnormal (test code = 94993-2) [facility]18 16:12:56 Test Item Value Reference Range Interpretation Comments Color, UA (test code Yellow = 5778-6) Clarity, UA (test Hazy code = 5767-9) Specific [place], UA 1.045 1.001-1.035 H (test code = 5811-5) pH, UA (test code = 6.5 5.0-8.0 5803-2) Protein, UA (test 20 mg/dL Negative A code = 42778-8) Glucose, UA (test Negative Negative code = 365) Ketones, UA (test Negative Negative code = 2514-8) Bilirubin, UA (test Negative Negative code = 12371-0) Blood, UA (test code Moderate Negative A = 20833-0) Nitrite, UA (test Negative Negative code = 5802-4) Leukocytes, UA (test Large Negative A code = 5799-2) Urobilinogen, UA 0.2 0.2-1.0 (test code = 80886-6) RBC, UA (test code = 34 See_Comment [Autom ated 99869-0) message] The system which generated this result [...] . Bacteria, UA (test Few code = 27364-1) Squam Epithel, UA <1 See_Comment [Automate d (test code = 69166-9) messag e] The system which generated this result transmit bandar reference range : /HPF. The reference range was not used to interpret this result as normal/abnormal . Specimen Source (test code = 2795) ROBERT (test code = ROBERT) Patient Financial Advocate ID - [auto]Patient Financial Advocate ID - tech Lab Interpretation Abnormal (test code = 69310-5) [facility] 2022-05-18 16:12:56 Test Item Value Reference Range Interpretation Comments Color, UA (test code Yellow = 5778-6) Clarity, UA (test Hazy code = 5767-9) Specific [place], UA 1.045 1.001-1.035 H (test code = 5811-5) pH, UA (test code = 6.5 5.0-8.0 5803-2) Protein, UA (test 20 mg/dL Negative A code = 47545-8) Glucose, UA (test Negative Negative code = 365) Ketones, UA (test Negative Negative code = 2514-8) Bilirubin, UA (test Negative Negative code = 95317-0) Blood, UA (test code Moderate Negative A = 75298-9) Nitrite, UA (test Negative Negative code = 5802-4) Leukocytes, UA (test Large Negative A code = 5799-2) Urobilinogen, UA 0.2 0.2-1.0 (test code = 13305-0) RBC, UA (test code = 34 See_Comment [Autom ated 58602-1) message] The system which generated this result [...] . Bacteria, UA (test Few code = 93424-4) Squam Epithel, UA <1 See_Comment [Automate d (test code = 04658-7) messag e] The system which generated this result transmit bandar reference range : /HPF. The reference range was not used to interpret this result as normal/abnormal . Specimen Source (test code = 2795) ROBERT (test code = ROBERT) Patient Financial Advocate ID - [auto]Patient Financial Advocate ID - tech Lab Interpretation Abnormal (test code = 97337-2) [facility] Culture 2022-05-18 16:12:56 Test Item Value Reference Range Interpretation Comments Color, UA (test code Yellow = 5778-6) Clarity, UA (test Hazy code = 5767-9) Specific [place], UA 1.045 1.001-1.035 H (test code = 5811-5) pH, UA (test code = 6.5 5.0-8.0 5803-2) Protein, UA (test 20 mg/dL Negative A code = 76802-4) Glucose, UA (test Negative Negative code = 365) Ketones, UA (test Negative Negative code = 2514-8) Bilirubin, UA (test Negative Negative code = 82993-5) Blood, UA (test code Moderate Negative A = 86430-6) Nitrite, UA (test Negative Negative code = 5802-4) Leukocytes, UA (test Large Negative A code = 5799-2) Urobilinogen, UA 0.2 0.2-1.0 (test code = 07403-8) RBC, UA (test code = 34 See_Comment [Autom ated 00261-9) message] The system which generated this result [...] . Bacteria, UA (test Few code = 61283-6) Squam Epithel, UA <1 See_Comment [Automate d (test code = 44330-1) messag e] The system which generated this result transmit bandar reference range : /HPF. The reference range was not used to interpret this result as normal/abnormal . Specimen Source (test code = 2795) ROBERT (test code = ROBERT) Patient Financial Advocate ID - [auto]Patient Financial Advocate ID - tech Lab Interpretation Abnormal (test code = 68923-0) [facility] Culture 2022-05-18 16:12:56 Test Item Value Reference Range Interpretation Comments Color, UA (test code Yellow = 5778-6) Clarity, UA (test Hazy code = 5767-9) Specific [place], UA 1.045 1.001-1.035 H (test code = 5811-5) pH, UA (test code = 6.5 5.0-8.0 5803-2) Protein, UA (test 20 mg/dL Negative A code = 82006-0) Glucose, UA (test Negative Negative code = 365) Ketones, UA (test Negative Negative code = 2514-8) Bilirubin, UA (test Negative Negative code = 18923-6) Blood, UA (test code Moderate Negative A = 05728-4) Nitrite, UA (test Negative Negative code = 5802-4) Leukocytes, UA (test Large Negative A code = 5799-2) Urobilinogen, UA 0.2 0.2-1.0 (test code = 63933-5) RBC, UA (test code = 34 See_Comment [Autom ated 35772-0) message] The system which generated this result [...] . Bacteria, UA (test Few code = 22516-7) Squam Epithel, UA See_Comment [Automate d (test code = 00002-6) messag e] The system which generated this result transmit bandar reference range : /HPF. The reference range was not used to interpret this result as normal/abnormal . Specimen Source (test code = 2795) ROBERT (test code = ROBERT) Patient Financial Advocate ID - [auto]Patient Financial Advocate ID - tech Lab Interpretation Abnormal (test code = 80070-8) [facility] Culture 2022-05-18 16:12:56 Test Item Value Reference Range Interpretation Comments Color, UA (test code Yellow = 5778-6) Clarity, UA (test Hazy code = 5767-9) Specific [place], UA 1.045 1.001-1.035 H (test code = 5811-5) pH, UA (test code = 6.5 5.0-8.0 5803-2) Protein, UA (test 20 mg/dL Negative A code = 55541-3) Glucose, UA (test Negative Negative code = 365) Ketones, UA (test Negative Negative code = 2514-8) Bilirubin, UA (test Negative Negative code = 63637-2) Blood, UA (test code Moderate Negative A = 98774-2) Nitrite, UA (test Negative Negative code = 5802-4) Leukocytes, UA (test Large Negative A code = 5799-2) Urobilinogen, UA 0.2 0.2-1.0 (test code = 27354-2) RBC, UA (test code = 34 See_Comment [Autom ated 33363-3) message] The system which generated this result [...] . Bacteria, UA (test Few code = 44181-1) Squam Epithel, UA See_Comment [Automate d (test code = 15909-1) messag e] The system which generated this result transmit bandar reference range : /HPF. The reference range was not used to interpret this result as normal/abnormal . Specimen Source (test code = 2795) ROBERT (test code = ROBERT) Patient Financial Advocate ID - [auto]Patient Financial Advocate ID - tech Lab Interpretation Abnormal (test code = 63544-1) [facility] Culture 2022-05-18 16:12:56 Test Item Value Reference Range Interpretation Comments Color, UA (test code Yellow = 5778-6) Clarity, UA (test Hazy code = 5767-9) Specific [place], UA 1.045 1.001-1.035 H (test code = 5811-5) pH, UA (test code = 6.5 5.0-8.0 5803-2) Protein, UA (test 20 mg/dL Negative A code = 69516-3) Glucose, UA (test Negative Negative code = 365) Ketones, UA (test Negative Negative code = 2514-8) Bilirubin, UA (test Negative Negative code = 48628-1) Blood, UA (test code Moderate Negative A = 14310-6) Nitrite, UA (test Negative Negative code = 5802-4) Leukocytes, UA (test Large Negative A code = 5799-2) Urobilinogen, UA 0.2 0.2-1.0 (test code = 03831-4) RBC, UA (test code = 34 See_Comment [Autom ated 92151-4) message] The system which generated this result [...] . Bacteria, UA (test Few code = 53493-8) Squam Epithel, UA See_Comment [Automate d (test code = 73895-1) messag e] The system which generated this result transmit bandar reference range : /HPF. The reference range was not used to interpret this result as normal/abnormal . Specimen Source (test code = 2795) ROBERT (test code = ROBERT) Patient Financial Advocate ID - [auto]Patient Financial Advocate ID - tech Lab Interpretation Abnormal (test code = 87348-5) [facility] Culture 2022-05-18 16:12:56 Test Item Value Reference Range Interpretation Comments Color, UA (test code Yellow = 5778-6) Clarity, UA (test Hazy code = 5767-9) Specific [place], UA 1.045 1.001-1.035 H (test code = 5811-5) pH, UA (test code = 6.5 5.0-8.0 5803-2) Protein, UA (test 20 mg/dL Negative A code = 78509-0) Glucose, UA (test Negative Negative code = 365) Ketones, UA (test Negative Negative code = 2514-8) Bilirubin, UA (test Negative Negative code = 02237-1) Blood, UA (test code Moderate Negative A = 85039-1) Nitrite, UA (test Negative Negative code = 5802-4) Leukocytes, UA (test Large Negative A code = 5799-2) Urobilinogen, UA 0.2 0.2-1.0 (test code = 87069-0) RBC, UA (test code = 34 See_Comment [Autom ated 75606-4) message] The system which generated this result [...] . Bacteria, UA (test Few code = 04290-8) Squam Epithel, UA See_Comment [Automate d (test code = 57243-7) messag e] The system which generated this result transmit bandar reference range : /HPF. The reference range was not used to interpret this result as normal/abnormal . Specimen Source (test code = 2795) ROBERT (test code = ROBERT) Patient Financial Advocate ID - [auto]Patient Financial Advocate ID - tech Lab Interpretation Abnormal (test code = 05499-9) [facility] Culture 2022-05-18 16:12:56 Test Item Value Reference Range Interpretation Comments Color, UA (test code Yellow = 5778-6) Clarity, UA (test Hazy code = 5767-9) Specific [place], UA 1.045 1.001-1.035 H (test code = 5811-5) pH, UA (test code = 6.5 5.0-8.0 5803-2) Protein, UA (test 20 mg/dL Negative A code = 92158-0) Glucose, UA (test Negative Negative code = 365) Ketones, UA (test Negative Negative code = 2514-8) Bilirubin, UA (test Negative Negative code = 91859-1) Blood, UA (test code Moderate Negative A = 08935-8) Nitrite, UA (test Negative Negative code = 5802-4) Leukocytes, UA (test Large Negative A code = 5799-2) Urobilinogen, UA 0.2 0.2-1.0 (test code = 92660-5) RBC, UA (test code = 34 See_Comment [Autom ated 18744-7) message] The system which generated this result [...] . Bacteria, UA (test Few code = 90298-6) Squam Epithel, UA See_Comment [Automate d (test code = 35504-4) messag e] The system which generated this result transmit bandar reference range : /HPF. The reference range was not used to interpret this result as normal/abnormal . Specimen Source (test code = 2795) ROBERT (test code = ROBERT) Patient Financial Advocate ID - [auto]Patient Financial Advocate ID - tech Lab Interpretation Abnormal (test code = 15800-9) [facility] 2022-05-18 16:12:56 Test Item Value Reference Range Interpretation Comments Color, UA (test code Yellow = 5778-6) Clarity, UA (test Hazy code = 5767-9) Specific [place], UA 1.045 1.001-1.035 H (test code = 5811-5) pH, UA (test code = 6.5 5.0-8.0 5803-2) Protein, UA (test 20 mg/dL Negative A code = 96943-6) Glucose, UA (test Negative Negative code = 365) Ketones, UA (test Negative Negative code = 2514-8) Bilirubin, UA (test Negative Negative code = 28933-7) Blood, UA (test code Moderate Negative A = 45581-4) Nitrite, UA (test Negative Negative code = 5802-4) Leukocytes, UA (test Large Negative A code = 5799-2) Urobilinogen, UA 0.2 0.2-1.0 (test code = 04384-4) RBC, UA (test code = 34 See_Comment [Autom ated 93907-2) message] The system which generated this result [...] . Bacteria, UA (test Few code = 72804-5) Squam Epithel, UA See_Comment [Automate d (test code = 26432-2) messag e] The system which generated this result transmit bandar reference range : /HPF. The reference range was not used to interpret this result as normal/abnormal . Specimen Source (test code = 2795) ROBERT (test code = ROBERT) Patient Financial Advocate ID - [auto]Patient Financial Advocate ID - tech Lab Interpretation Abnormal (test code = 96124-1) [facility]22-[facility]18 16:12:56 Test Item Value Reference Range Interpretation Comments Color, UA (test code Yellow = 5778-6) Clarity, UA (test Hazy code = 5767-9) Specific [place], UA 1.045 1.001-1.035 H (test code = 5811-5) pH, UA (test code = 6.5 5.0-8.0 5803-2) Protein, UA (test 20 mg/dL Negative A code = 36954-6) Glucose, UA (test Negative Negative code = 365) Ketones, UA (test Negative Negative code = 2514-8) Bilirubin, UA (test Negative Negative code = 85770-0) Blood, UA (test code Moderate Negative A = 34106-2) Nitrite, UA (test Negative Negative code = 5802-4) Leukocytes, UA (test Large Negative A code = 5799-2) Urobilinogen, UA 0.2 0.2-1.0 (test code = 65517-3) RBC, UA (test code = 34 See_Comment [Autom ated 89592-1) message] The system which generated this result [...] . Bacteria, UA (test Few code = 96520-7) Squam Epithel, UA See_Comment [Automate d (test code = 14102-0) messag e] The system which generated this result transmit bandar reference range : /HPF. The reference range was not used to interpret this result as normal/abnormal . Specimen Source (test code = 2795) ROBERT (test code = ROBERT) Patient Financial Advocate ID - [auto]Patient Financial Advocate ID - tech Lab Interpretation Abnormal (test code = 46117-3) [facility] 2022-05-18 16:12:56 Test Item Value Reference Range Interpretation Comments Color, UA (test code Yellow = 5778-6) Clarity, UA (test Hazy code = 5767-9) Specific [place], UA 1.045 1.001-1.035 H (test code = 5811-5) pH, UA (test code = 6.5 5.0-8.0 5803-2) Protein, UA (test 20 mg/dL Negative A code = 67110-6) Glucose, UA (test Negative Negative code = 365) Ketones, UA (test Negative Negative code = 2514-8) Bilirubin, UA (test Negative Negative code = 09864-5) Blood, UA (test code Moderate Negative A = 48346-6) Nitrite, UA (test Negative Negative code = 5802-4) Leukocytes, UA (test Large Negative A code = 5799-2) Urobilinogen, UA 0.2 0.2-1.0 (test code = 65957-5) RBC, UA (test code = 34 See_Comment [Autom ated 39594-8) message] The system which generated this result [...] . Bacteria, UA (test Few code = 95949-4) Squam Epithel, UA See_Comment [Automate d (test code = 01357-2) messag e] The system which generated this result transmit bandar reference range : /HPF. The reference range was not used to interpret this result as normal/abnormal . Specimen Source (test code = 2795) ROBERT (test code = ROBERT) Patient Financial Advocate ID - [auto]Patient Financial Advocate ID - tech Lab Interpretation Abnormal (test code = 48292-5) [facility] Culture 2022-05-18 16:12:56 Test Item Value Reference Range Interpretation Comments Color, UA (test code Yellow = 5778-6) Clarity, UA (test Hazy code = 5767-9) Specific [place], UA 1.045 1.001-1.035 H (test code = 5811-5) pH, UA (test code = 6.5 5.0-8.0 5803-2) Protein, UA (test 20 mg/dL Negative A code = 95588-6) Glucose, UA (test Negative Negative code = 365) Ketones, UA (test Negative Negative code = 2514-8) Bilirubin, UA (test Negative Negative code = 39676-2) Blood, UA (test code Moderate Negative A = 44590-7) Nitrite, UA (test Negative Negative code = 5802-4) Leukocytes, UA (test Large Negative A code = 5799-2) Urobilinogen, UA 0.2 0.2-1.0 (test code = 02859-3) RBC, UA (test code = 34 See_Comment [Autom ated 68311-8) message] The system which generated this result [...] . Bacteria, UA (test Few code = 48427-5) Squam Epithel, UA See_Comment [Automate d (test code = 88297-4) messag e] The system which generated this result transmit bandar reference range : /HPF. The reference range was not used to interpret this result as normal/abnormal . Specimen Source (test code = 2795) ROBERT (test code = ROBERT) Patient Financial Advocate ID - [auto]Patient Financial Advocate ID - tech Lab Interpretation Abnormal (test code = 49276-0) [facility] 2022-05-18 16:12:56 Test Item Value Reference Range Interpretation Comments Color, UA (test code Yellow = 5778-6) Clarity, UA (test Hazy code = 5767-9) Specific [place], UA 1.045 1.001-1.035 H (test code = 5811-5) pH, UA (test code = 6.5 5.0-8.0 5803-2) Protein, UA (test 20 mg/dL Negative A code = 74087-7) Glucose, UA (test Negative Negative code = 365) Ketones, UA (test Negative Negative code = 2514-8) Bilirubin, UA (test Negative Negative code = 51809-7) Blood, UA (test code Moderate Negative A = 87940-5) Nitrite, UA (test Negative Negative code = 5802-4) Leukocytes, UA (test Large Negative A code = 5799-2) Urobilinogen, UA 0.2 0.2-1.0 (test code = 43913-0) RBC, UA (test code = 34 See_Comment [Autom ated 11051-4) message] The system which generated this result [...] . Bacteria, UA (test Few code = 06483-7) Squam Epithel, UA See_Comment [Automate d (test code = 48840-6) messag e] The system which generated this result transmit bandar reference range : /HPF. The reference range was not used to interpret this result as normal/abnormal . Specimen Source (test code = 2795) ROBERT (test code = ROBERT) Patient Financial Advocate ID - [auto]Patient Financial Advocate ID - tech Lab Interpretation Abnormal (test code = 53864-5) [facility] Culture 2022-05-18 16:12:56 Test Item Value Reference Range Interpretation Comments Color, UA (test code Yellow = 5778-6) Clarity, UA (test Hazy code = 5767-9) Specific [place], UA 1.045 1.001-1.035 H (test code = 5811-5) pH, UA (test code = 6.5 5.0-8.0 5803-2) Protein, UA (test 20 mg/dL Negative A code = 29373-7) Glucose, UA (test Negative Negative code = 365) Ketones, UA (test Negative Negative code = 2514-8) Bilirubin, UA (test Negative Negative code = 68316-7) Blood, UA (test code Moderate Negative A = 56114-7) Nitrite, UA (test Negative Negative code = 5802-4) Leukocytes, UA (test Large Negative A code = 5799-2) Urobilinogen, UA 0.2 0.2-1.0 (test code = 41295-9) RBC, UA (test code = 34 See_Comment [Autom ated 59869-5) message] The system which generated this result [...] . Bacteria, UA (test Few code = 69124-2) Squam Epithel, UA See_Comment [Automate d (test code = 95064-9) messag e] The system which generated this result transmit bandar reference range : /HPF. The reference range was not used to interpret this result as normal/abnormal . Specimen Source (test code = 2795) ROBERT (test code = ROBERT) Patient Financial Advocate ID - [auto]Patient Financial Advocate ID - tech Lab Interpretation Abnormal (test code = 37155-4) [facility] Culture 2022-05-18 16:12:56 Test Item Value Reference Range Interpretation Comments Color, UA (test code Yellow = 5778-6) Clarity, UA (test Hazy code = 5767-9) Specific [place], UA 1.045 1.001-1.035 H (test code = 5811-5) pH, UA (test code = 6.5 5.0-8.0 5803-2) Protein, UA (test 20 mg/dL Negative A code = 40036-4) Glucose, UA (test Negative Negative code = 365) Ketones, UA (test Negative Negative code = 2514-8) Bilirubin, UA (test Negative Negative code = 03634-7) Blood, UA (test code Moderate Negative A = 91743-1) Nitrite, UA (test Negative Negative code = 5802-4) Leukocytes, UA (test Large Negative A code = 5799-2) Urobilinogen, UA 0.2 0.2-1.0 (test code = 54983-0) RBC, UA (test code = 34 See_Comment [Autom ated 75247-2) message] The system which generated this result [...] . Bacteria, UA (test Few code = 16607-7) Squam Epithel, UA See_Comment [Automate d (test code = 39102-8) messag e] The system which generated this result transmit bandar reference range : /HPF. The reference range was not used to interpret this result as normal/abnormal . Specimen Source (test code = 2795) ROBERT (test code = ROBERT) Patient Financial Advocate ID - [auto]Patient Financial Advocate ID - tech Lab Interpretation Abnormal (test code = 40758-1) [facility] Culture 2022-05-18 16:12:56 Test Item Value Reference Range Interpretation Comments Color, UA (test code Yellow = 5778-6) Clarity, UA (test Hazy code = 5767-9) Specific [place], UA 1.045 1.001-1.035 H (test code = 5811-5) pH, UA (test code = 6.5 5.0-8.0 5803-2) Protein, UA (test 20 mg/dL Negative A code = 72386-5) Glucose, UA (test Negative Negative code = 365) Ketones, UA (test Negative Negative code = 2514-8) Bilirubin, UA (test Negative Negative code = 41795-5) Blood, UA (test code Moderate Negative A = 10281-1) Nitrite, UA (test Negative Negative code = 5802-4) Leukocytes, UA (test Large Negative A code = 5799-2) Urobilinogen, UA 0.2 0.2-1.0 (test code = 79145-0) RBC, UA (test code = 34 See_Comment [Autom ated 33223-4) message] The system which generated this result [...] . Bacteria, UA (test Few code = 32192-3) Squam Epithel, UA See_Comment [Automate d (test code = 94789-2) messag e] The system which generated this result transmit bandar reference range : /HPF. The reference range was not used to interpret this result as normal/abnormal . Specimen Source (test code = 2795) ROBERT (test code = ROBERT) Patient Financial Advocate ID - [auto]Patient Financial Advocate ID - tech Lab Interpretation Abnormal (test code = 37351-1) [facility] [id number] 16:12:56 Test Item Value Reference Range Interpretation [...] = 516) SOURCE(BEAKER) (test code = 2795) Patient Financial Advocate ID - [auto]Patient Financial Advocate ID - techPROTHROMBIN [id number] 16:02:01 Test Item Value Reference Range Interpretation Comments PROTIME (BEAKER) (test code = 25.8 seconds 11.9-14.2 H 759) INR (BEAKER) (test code = 370) 2.54 <=5.90 RECOMMENDED COUMADIN/WARFARIN INR THERAPY RANGESSTANDARD DOSE: 2.0 - 3.0 Includes: PROPHYLAXIS for venous thrombosis, systemic embolization; TREATMENT for venous thrombosis and/or pulmonary embolus.HIGH RISK: Target INR is 2.5-3.5 for patients with mechanical heart valves.CALCIUM, [id number] 13:31:38 Test Item Value Reference Range Interpretation [...] 0-0 (BEAKER) (test code = 413) POCT-GLUCOSE [id number] 13:07:25 Test Item Value Reference Range Interpretation Comments POC-GLUCOSE METER 81 mg/dL 70-110 : TESTED A T [facility] 6720 (BEAKER) (test code = [place]O [place], 1538) 50574: Patient Financial Advocate/Techni valarie ID = [id number] for Scarlet Maravilla B-TYPE NATRIURETIC FACTOR (BNP)2022-05-18 11:38:06 Test Item Value Reference Range Interpretation Comments B-TYPE NATRIURETIC PEPTIDE (BEAKER) 97 pg/mL 0-100 (test code = 700) Patient Financial Advocate ID - FANTASMA [id number] 11:34:39 Test Item Value Reference Range Interpretation Comments FIBRINOGEN LEVEL (BEAKER) (test 440 mg/dl 225-434 H code = 658) [id number] 11:32:28 Test Item Value Reference Range Interpretation Comments LIPASE (BEAKER) (test code = 749) 13 U/L 8-78 Patient Financial Advocate ID - FANTASMA BCOMPREHENSIVE METABOLIC [id number] 11:32:27 Test Item Value Reference Range Interpretation [...] not appl icable for dialysis patien ts Patient Financial Advocate ID - FANTASMA [id number] 11:32:27 Test Item Value Reference Range Interpretation Comments MAGNESIUM (BEAKER) (test code = 1.7 mg/dL 1.6-2.6 627) Patient Financial Advocate ID - FANTASMA [id number] 11:32:27 Test Item Value Reference Range Interpretation Comments PHOSPHORUS (BEAKER) (test code = 2.9 mg/dL 2.3-4.7 604) Patient Financial Advocate ID - FANTASMA [id number] 11:21:21 Test Item Value Reference Range Interpretation [...] for patients with mechanical heart valves.LACTIC ACID, [id number] 11:20:59 Test Item Value Reference Range Interpretation Comments LACTATE BLOOD VENOUS (2) (BEAKER) 1.40 mmol/L 0.50-2.20 (test code = 2872) Patient Financial Advocate ID - FANTASMA B"
[2023-02-26 10:59] LABS: Hematocrit 25.8 % (36.0-45.0)
[2023-02-26] MEDS: HYDROCODONE/APAP 7.5/325 MG TAB PO PRN ×3 (12:31→21:31)
[2023-02-26 15:56] VITALS: BMI 19.1
[2023-02-26] MEDS: CEFAZOLIN 1 GM in NA CHLORIDE 0.9% 50 ML IVPB SCH (16:46)
[2023-02-26 18:55] LABS: Hematocrit 25.4 % (36.0-45.0)
[2023-02-26] MEDS: ZOLPIDEM TARTRATE 10 MG TABLET PO SCH (21:00)
[2023-02-26] MEDS: GABAPENTIN 300 MG CAP PO SCH (21:31)
[2023-02-26] MEDS: METOPROLOL TAR 25 MG TAB PO SCH (21:32)
[2023-02-26] MEDS: PANTOPRAZOLE 40MG TABLET PO SCH (21:32)
[2023-02-27] MEDS: CEFAZOLIN 1 GM in NA CHLORIDE 0.9% 50 ML IVPB SCH ×2 (01:37→09:49)
[2023-02-27] MEDS: HYDROCODONE/APAP 7.5/325 MG TAB PO PRN (01:38)
[2023-02-27] MEDS: ATORVASTATIN 40 MG TAB PO SCH ×2 (01:38→20:34)
[2023-02-27 02:55] LABS: Hematocrit 24.9 % (36.0-45.0)
[2023-02-27] MEDS ORDERED: ENOXAPARIN 40 MG/0.4 ML SQ SCH (09:00)
[2023-02-27] MEDS: FUROSEMIDE 20 MG TABLET PO SCH (09:00)
[2023-02-27] MEDS: METOPROLOL TAR 25 MG TAB PO SCH ×2 (09:49→20:37)
[2023-02-27] MEDS: PANTOPRAZOLE 40MG TABLET PO SCH ×2 (09:49→20:34)
[2023-02-27] MEDS: GABAPENTIN 300 MG CAP PO SCH ×3 (09:50→20:34)
[2023-02-27] MEDS: ENOXAPARIN 60 MG/0.6 ML SQ SCH ×2 (09:51→20:34)
[2023-02-27] MEDS: AMIODARONE HCL 200 MG TAB PO SCH (09:51)
[2023-02-27] MEDS: EZETIMIBE 10 MG TAB PO SCH (09:52)
[2023-02-27] MEDS ORDERED: HYDROCODONE/APAP 7.5/325 MG TAB PO PRN (12:33)
[2023-02-27] MEDS: HYDROMORPHONE HCL 0.5 MG/0.5 ML INJ IV PRN ×2 (13:03→18:38)
--- NOTE | 2023-02-27 17:25 | EKG ---
Test Date: 2023-02-26 Test Time: 07:58:06 Glass Sander Belt: ANDRY MEASUREMENT RESULTS: Intervals: Rate: 67 MN: 258 QRSD: 108 QT: 398 QTc: 420 Amber: P: 25 MN: 258 QRS: 72 T: -12 INTERPRETIVE STATEMENTS: Sinus rhythm with 1st degree AV block Nonspecific ST and T wave abnormality Abnormal ECG Compared to ECG 12/28/2022 01:44:23 First degree AV block now present ST (T wave) deviation now present Sinus bradycardia no longer present Electronically Signed On 02-27-23 17:21:20 [employer] RECONDITIONER by Jam Bolanos
[2023-02-27] MEDS: ZOLPIDEM TARTRATE 10 MG TABLET PO SCH (20:35)
[2023-02-28] MEDS: HYDROMORPHONE HCL 0.5 MG/0.5 ML INJ IV PRN ×4 (00:31→23:03)
[2023-02-28 02:44] LABS: Hematocrit 28.1 % (36.0-45.0)
[2023-02-28] MEDS ORDERED: ALENDRONATE 70 MG TAB PO SCH (09:00)
[2023-02-28] MEDS: EZETIMIBE 10 MG TAB PO SCH (10:40)
[2023-02-28] MEDS: AMIODARONE HCL 200 MG TAB PO SCH (10:40)
[2023-02-28] MEDS: METOPROLOL TAR 25 MG TAB PO SCH ×2 (10:40→20:37)
[2023-02-28] MEDS: FUROSEMIDE 20 MG TABLET PO SCH (10:41)
[2023-02-28] MEDS: PANTOPRAZOLE 40MG TABLET PO SCH ×2 (10:41→20:37)
[2023-02-28] MEDS: GABAPENTIN 300 MG CAP PO SCH ×3 (10:41→20:37)
[2023-02-28] MEDS: ENOXAPARIN 60 MG/0.6 ML SQ SCH ×2 (14:25→20:37)
[2023-02-28] MEDS: ATORVASTATIN 40 MG TAB PO SCH (20:36)
[2023-02-28] MEDS: ZOLPIDEM TARTRATE 10 MG TABLET PO SCH (20:37)
[2023-03-01] MEDS: HYDROMORPHONE HCL 0.5 MG/0.5 ML INJ IV PRN ×2 (04:03→10:20)
[2023-03-01 04:57] VITALS: TEMP 97.5
[2023-03-01] MEDS: GABAPENTIN 300 MG CAP PO SCH ×2 (09:06→13:21)
[2023-03-01] MEDS: AMIODARONE HCL 200 MG TAB PO SCH (09:06)
[2023-03-01] MEDS: PANTOPRAZOLE 40MG TABLET PO SCH (09:06)
[2023-03-01] MEDS: FUROSEMIDE 20 MG TABLET PO SCH (09:06)
[2023-03-01] MEDS: METOPROLOL TAR 25 MG TAB PO SCH (09:06)
[2023-03-01] MEDS: ENOXAPARIN 60 MG/0.6 ML SQ SCH (09:07)
[2023-03-01] MEDS: EZETIMIBE 10 MG TAB PO SCH (09:11)
[2023-03-01 09:12] VITALS: BP 119/53
[2023-03-01] MEDS ORDERED: WARFARIN SODIUM 5 MG TAB PO ONE ×2 (09:18)
[2023-03-01 11:46] VITALS: O2SAT 93
== END 2023-03-01 16:35 | disposition home health service (06) ==
LOC: OR 05:51 → 2ND 10:22
PROVIDERS: ADMIT Orthopaedic Surgery; ATTEND Orthopaedic Surgery
PROC: 0SR903A Replacement of Right Hip Joint with Ceramic Synthetic Substitute, Uncemented, Open Approach (ICD-10-PCS; 2023-02-26)
PROC: 0SR901A Replacement of Right Hip Joint with Metal Synthetic Substitute, Uncemented, Open Approach (ICD-10-PCS; principal; 2023-02-26 07:00)
DX: M16.11 Unilateral primary osteoarthritis, right hip (principal); M25.551 Pain in right hip; D64.9 Anemia, unspecified
CPT/HCPCS: 93005; 85025; 81001; 36415 ×3; 86900; 86850; 85610 ×2; 86901; 88304; 88311; 85730; 85018 ×6; 85014 ×6; 80053; 73501; 97110; 97112; 97116 ×4; 97161; 97530 ×4; 94010 ×2; 27130; C1776 ×3; J1650 ×5; J2710; J0171; J2001 ×3; J3010; J1170 ×8; J2405; J7120 ×2; J0690 ×3; 88305; G0378; G0379

== ENCOUNTER 2023-03-05 08:52 | Inpatient (IN) | payer OTHER ==
--- OUTSIDE RECORDS SUMMARY | 2023-03-11 15:48 | XMS REPORT | Continuity of Care Document ---
:1955 Author Organization [facility] t Address [address] [place] [address] Care Team Providers Name Role Phone DANIEL [...] Alicia Smith MD Attending Clinician Doctor Unassigned, [place] Attending Clinician Unavailable WAYNE RABAGO Attending Clinician Unavailable Yolande Santacruz MD Attending Clinician JOSEPH CORTES Attending Clinician Unavailable Derrick LOVELL, Joseph Manzo Attending Clinician Hima LOVELL, Wayne Attending Clinician Santos LOVELL, Sean Granda Attending Clinician [phone] Joey LOVELL, Vinayak Evans Attending Clinician Lynnette LOVELL, Shadi Jhaveri Attending Clinician [phone] Justo Pagan MD, Franc Calles Attending Clinician [...] MARIIA CARDONA Admitting Clinician Unavailable VINAYAK COOK NOHEMY Admitting Clinician Unavailable REBECA HOLCOMB Admitting Clinician Unavailable CALEB RODRIGUES Admitting Clinician Unavailable Caleb Rodrigues MD Admitting Clinician JENNIFER LO Admitting Clinician Unavailable Jennifer Lo MD Admitting Clinician Payers Payer Name Policy Type Policy Number Effective Date Expiration Date Judi hamilton [facility] DUAL [id number] 2020 COMP HMO D SNP 00:00:00 [facility] [id number] 2013 PLUS 00:00:00 [place]ID [place] [id number] 2022 2022 00:00:00 00:00:00 Problems Condition Condition Condition Status Onset [...] Active Unive rs 9-24 ity of 00:00: [place] [facility] Senile Senile Disease Active Univers dementia dementia 9-24 ity of with with 00:00: [place] depression depression 00 Oh dical Branch Fall, Fall, Disease Active Univers initial initial 9-24 ity of encounter encounter 00:00: Jose Elias manzo Medical Branch Diarrhea Diarrhea Disease Active Unive rs 9-07 ity of 00:00: [place] 00 Medical Branch 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 00:00: [place] with with 00 Medical preserved preserved Bran ch ejection ejection fraction fraction 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 aorta aorta 00 [facility] [place] [facility] Personal Personal Disease Active Unive rs [...] fibrillati fibrillati [place]:00[place] [facility] Branch S/P AVR S/P AVR Disease Recurre [facility] ([facility]ortic ([facility]07 [facility] valve valve 00:00: [facility] replacemen replacemen 00 Ce nter t) t) Acute Acute Disease Active [facility] blood loss blood loss 2-07 [facility] anemia anemia 00:00: [facility] 00 [place] Suprathera Suprathera Disease Active [facility] peutic INR peutic INR 2-07 [facility] 00:00: Medical 00 [place] Fall Fall Disease Active [facility]07 [facility] 00:00: [facility] 00 Center Acute Acute Disease Active [facility] upper GI upper GI 2-03 [facility] bleed bleed 00:00: [facility] 00 [place] GI bleed GI bleed Disease Active [facility] 00:00: Medical 00 [place] Atrial Atrial Disease Active Univers fibrillati fibrillati 8-11 it y of on on 00:00: [place] 00 [facility] Branch E44.0 E44.0 Disease Active 2020-04 Univers Moderate Moderate 1-19 ity of protein protein 00:00: [place] calorie calorie 00 Medical malnutriti malnutriti Br anch on on Other Other Disease Active 2020-04 Univers chest pain chest pain 1-19 it y of 00:00: [place] 00 [facility] Branch Chest pain Chest pain Disease Active 2020-04 U terri 1-17 ity of 00:00: [place] 00 [facility] Branch Elevated Elevated Disease Active 2020-04 [...] 8-20 it y of emia emia 00:00: [place] 00 Medical Branch Essential Essential Disease Active Uni vers hypertensi hypertensi 8-20 it y of on on 00:00: [place] [facility] Anticoagul Anticoagul Disease Active U nivers ated ated 8-20 ity of 00:00: [place] 00 Medical Branch Coronary Coronary Disease Active Unive rs artery artery 8-20 ity of disease disease 00:00: [place] involving involving 00 Medi [place] coronary coronary artery of artery of [place] 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 8-20 ity of disease disease 00:00: [place] involving involving 00 Medi [place]rone [place] Branch coronary coronary artery of artery of [place] 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 2-20 ity of disease disease 00:00: [place] involving involving 00 Medi [place] Branch heart heart without without angina angina [...] Active Univers ALLERGIE Class ity of S [facility] Family History Family Member Diagnosis Comments Start Date Stop Date Source Natural mother Diabetes [facility] Natural mother Heart [facility] Other Diabetes [facility] Natural sister Cancer [facility] Natural sister Diabetes [facility] Social History Social Habit Start Date Stop Date Quantity Comments Source History SDOH Social Unive rsity of Connections [facility] Med ical Together Branch History SDOH Social Unive rsity of Connections [facility] Medical Branch History SDOH Social Unive rsity of Connections [place] [facility] Membership Branch History SDOH Social Unive rsity of Connections [place] [facility] Meetings Branch Gender identity [facility] Sexual orientation Univer [facility] Exposure to 2022-08-18 2022-08-28 Not sure University of SARS-CoV-2 (event) 00:00:00 12:47:00 [place] [facility] History SDOH 2022-06-07 2022-06-07 1 University o f Alcohol Frequency 00:00:00 00:00:00 [facility] edical Branch History SDOH 2022-06-07 2022-06-07 0 University o f Alcohol Std Drinks 00:00:00 00:00:00 [place] [facility] History SDOH 2022-06-07 2022-06-07 1 University o f Alcohol Binge 00:00:00 00:00:00 [place] Medic al Branch History SDOH Social 2022-06-07 2022-06-07 5 Unive rsity of Connections Phone 00:00:00 00:00:00 [place] M edical Branch History SDOH Social 2022-06-07 2022-06-07 4 Unive rsity of Connections Living 00:00:00 00:00:00 [place] [facility] History SDOH 2022-06-07 2022-06-07 0 University o f Physical Activity 00:00:00 00:00:00 [facility] edical DPW Branch History [facility] 2022-06-07 2022-06-07 0 University o f Physical Activity 00:00:00 00:00:00 [facility] edical MPS Branch History SD[facility] 2022-06-07 2022-06-07 5 University o f Financial 00:00:00 00:00:00 [place] [facility] History [facility] Food 2022-06-07 2022-06-07 1 Univers ity of Worry 00:00:00 00:00:00 [place] [facility] History [facility] Food 2022-06-07 2022-06-07 1 Univers ity of Scarcity 00:00:00 00:00:00 [place] [facility] History [facility] 2022-06-07 2022-06-07 2 University o f Transport Med 00:00:00 00:00:00 [place] Medic al Branch History [facility] 2022-06-07 2022-06-07 2 University o f Transport Non-Med 00:00:00 00:00:00 [facility] edical Branch Education 2022-06-06 2022-06-06 14 University of 00:00:00 00:00:00 [place] [facility] History of Social 2022-05-19 2022-05-[address] [facility] function 00:00:00 00:00:00 [facility] Tobacco use and 2022-05-19 2022-05-[address] [facility] exposure 00:00:00 00:00:00 tobacco non-user [facility] Alcohol intake 2022-05-19 2022-05-19 Ex-drinker [facility] 00:00:00 00:00:00 (finding) Medical Center History [facility] 2022-05-18 2022-05-[address] [facility] Housing Unable to 00:00:00 00:00:00 Medical Center Pay History [facility] 2022-05-18 2022-05-[address] [facility] Housing Places 00:00:00 00:00:00 Medical Ce nter Lived History [facility] 2022-05-18 2022-05-[address] [facility] Housing Homeless 00:00:00 00:00:00 Medical Center Last Year Sex Assigned At [address] [facility] 00:00:00 00:00:00 Medical Center Smoking Status Start Date Stop Date Source Never smoked tobacco [facility] Medications Ordered Filled Start Stop Current Ordering Indication Dosage Frequency Signature Comments Components Source Medication Medication Date Date Medication? Clinician (SIG) Name Name warfarin 1 2022-04 Yes [id number] 2mg Un chong mg tablet 0-27 3x/week ity of 00:00: 1mg [place] 4x/week Medical Branch warfarin 1 2022-04 Yes [id number] 2mg Un chong mg tablet 0-27 3x/week ity of 00:00: 1mg [place] 4x/week Medical Branch warfarin 1 2022-04 Yes [id number] 2mg Un chong mg tablet 0-27 3x/week ity of 00:00: 1mg [place] 4x/week Medical Branch warfarin 1 2022-04 Yes [id number] 2mg Un chong mg tablet 0-27 3x/week ity of 00:00: 1mg [place] 4x/week Medical Branch amiodarone 2022-04- Yes [id number] 200mg Take 1 Univers 200 mg 0-23 11-23 tablet by ity of tablet 00:00: 05:59 mouth in [place] 00 :00 the Medical morning Branch for 30 days. amiodarone 2022-04- Yes [id number] 200mg Take 1 Univers 200 mg 0-23 11-23 tablet by ity of tablet 00:00: 05:59 mouth in [place] 00 :00 the Medical morning Branch for 30 days. amiodarone 2022-04- Yes [id number] 200mg Take 1 Univers 200 mg 0-23 11-23 tablet by ity of tablet 00:00: 05:59 mouth in [place] 00 :00 the Medical morning Branch for 30 days. amiodarone 2022-04- Yes [id number] 200mg Take 1 Univers 200 mg 0-23 11-23 tablet by ity of tablet 00:00: 05:59 mouth in [place] 00 :00 the [facility] morning Branch for 30 days. amiodarone 2022-04- Yes [id number] 200mg Take 1 Univers 200 mg 0-23 11-23 tablet by ity of tablet 00:00: 05:59 mouth in [place] 00 :00 the [facility] morning Branch for 30 days. amiodarone 2022-04- Yes [id number] 200mg Take 1 Univers 200 mg 0-23 -23 tablet by ity of tablet 00:00: 05:59 mouth in [place] 00 :00 the [facility] Branch for 30 days. amiodarone 2022-04- Yes [id number] 200mg Take 1 Univers 200 mg 0-23 -23 tablet by ity of tablet 00:00: 05:59 mouth in [place] 00 :00 the [facility] Branch for 30 days. pantoprazol 2022-04 Yes 40mg 40 mg, Univ ers e 0-22 Oral, ity of (PROTONIX) 14:00: DAILY, [place] EC tablet 00 First dose Medi tyrone 40 mg on [place] Branch 02/03/23 at 0900, Until Discontinu ed, Routine ezetimibe 2022-04 Yes 10mg 10 mg, Univer s (ZETIA) 0-22 Oral, ity of tablet 10 14:00: DAILY, [place] mg 00 First dose Medical on [place] Branch 02/03/23 at 0900, Until Discontinu ed, Routine aspirin 2022-04 Yes 81mg 81 mg, Univers chewable 0-22 Oral, ity of tablet 81 14:00: DAILY, [place] mg 00 First dose Medical on [place] Branch 02/03/23 at 0900, Until Discontinu ed, Routine amiodarone 2022-04 Yes 200mg 200 mg, Uni vers (PACERONE) 0-22 Oral, ity of tablet 200 14:00: DAILY, [place] mg 00 First dose Medical on [place] Branch 02/03/23 at 0900, Until Discontinu ed, [...] [place] 00 on [facility] Medical 02/02/23 Branch at 2100, Until Discontinu ed, Routine metoprolol 2022-04 Yes 37.5mg 37.5 mg, U nivers tartrate 0-22 Oral, BID, ity o f (LOPRESSOR) 01:00: First dose [place] tablet 37.5 00 on [facility] Medica l mg 02/02/23 Branch at 2000, Until Discontinu ed gabapentin 2022-04 Yes 300mg 300 mg, Uni vers (NEURONTIN) 0-22 Oral, TID, it y of capsule 300 01:00: First dose [place] mg 00 on [facility] Medical 02/02/23 Branch at 2000, Until Discontinu ed, Routine ketorolac 2022-04- No 15mg 15 mg, Unive rs (TORADOL) 0-02 02- Slow IV ity of injection 22:15: 21:36 Push, [place] 15 mg 00 :00 ONCE, 1 Medical dose, On Branch [facility] 02/02/23 at 1715, Routine zolpidem 2022-04 Yes 10mg 10 mg, Univers (AMBIEN) 0-21 Oral, ity of tablet 10 21:25: QHSPRN, [place] mg 46 Starting Medical on [facility] Branch 02/02/23 at 1625, Until Discontinu ed, Routine, Insomnia nitroglycer 2022-04 Yes .4mg 0.4 mg, Uni vers in 0-21 Sublingual ity of (NITROSTAT) 20:56: , Q5MIN Babak as sublingual 06 PRN, Medical tablet 0.4 Starting Branc h mg on [facility] 02/02/23 at 1556, Until Discontinu ed, Routine, Chest pain phytonadion 2022-04- No 2.5mg 2.5 mg, U nivers e (vitamin 0-21 - Oral, ity of K1) 20:30: 21:33 ONCE, 1 [place] (MEPHYTON) 00 :00 dose, On Medic al tablet 2.5 [facility] Branch mg 02/02/23 at 1530, Routine HYDROcodone 2022-04 Yes 1{tbl} 1 tablet, Univers -acetaminop 0-21 Oral, ity of hen (NORCO) 19:36: Q8HPRN, Babak as 10-325 mg 11 Starting Medica l tablet 1 on [facility] Branch tablet 02/02/23 at 1436, Until Discontinu ed, Routine, Pain (scale 7-10) acetaminoph 2022-04 Yes 650mg 650 mg, Un chong en 0-21 Oral, ity of (TYLENOL) 19:32: Q6HPRN, [place] tablet 650 20 Starting Medic al mg on Sat Branch 02/02/23 at 1432, Until Discontinu ed, Routine, Pain (scale 1-3) amiodarone 2022-04 Yes [id number] Please Univers 200 mg 0-02 take 200 ity of tablet 00:00: mg twice [place] 00 daily for Medical 2 weeks Branch (01/14/23 - 01/28/23) then take 200 mg once daily afterwards . amiodarone 2022-04 Yes [id number] Please Univers 200 mg 0-02 take 200 ity of tablet 00:00: mg twice [place] 00 daily for Medical 2 weeks Branch (01/14/23 - 01/28/23) then take 200 mg once daily afterwards . amiodarone 2022-04 Yes [id number] Please Univers 200 mg 0-02 take 200 ity of tablet 00:00: mg twice [place] 00 daily for Medical 2 weeks Branch (01/14/23 - 01/28/23) then take 200 mg once daily afterwards . amiodarone 2022-04 Yes [id number] Please Univers 200 mg 0-02 take 200 ity of tablet 00:00: mg twice [place] 00 daily for Medical 2 weeks Branch (01/14/23 - 01/28/23) then take 200 mg once daily afterwards . amiodarone 2022-04 Yes [id number] Please Univers 200 mg 0-02 take 200 ity of tablet 00:00: mg twice [place] 00 daily for Medical 2 weeks Branch (01/14/23 - 01/28/23) then take 200 mg once daily afterwards . amiodarone 2022-04 Yes [id number] Please Univers 200 mg 0-02 take 200 ity of tablet 00:00: mg twice [place] 00 daily for Medical 2 weeks Branch (01/14/23 - 01/28/23) then take 200 mg once daily afterwards . amiodarone 2022-04 Yes [id number] Please Univers 200 mg 0-02 take 200 ity of tablet 00:00: mg twice [place] 00 daily for Medical 2 weeks Branch (01/14/23 - 01/28/23) then take 200 mg once daily afterwards . amiodarone 2022-04 Yes [id number] Please Univers 200 mg 0-02 take 200 ity of tablet 00:00: mg twice [place] 00 daily for Medical 2 weeks Branch (01/14/23 - 01/28/23) then take 200 mg once daily afterwards . amiodarone 2022-04 Yes [id number] Please Univers 200 mg 0-02 take 200 ity of tablet 00:00: mg twice [place] 00 daily for Medical 2 weeks Branch (01/14/23 - 01/28/23) then take 200 mg once daily afterwards . amiodarone 2022-04 Yes [id number] Please Univers 200 mg 0-02 take 200 ity of tablet 00:00: mg twice [place] 00 daily for Medical 2 weeks Branch (01/14/23 - 01/28/23) then take 200 mg once daily afterwards . amiodarone 2022-04- No [id number] Please Univers 200 mg 0-02 02-03 take [...] be selected): Atrial fibrillati on/flutter aspirin 81 0 Yes 81mg Take 1 Unive rs mg chewable 9-30 tablet by ity of tablet 00:00: mouth in [place] the Medical morning. Branch pantoprazol 2023-0 Yes 40mg Take 1 Univ ers e 40 mg EC 9-30 tablet by ity of tablet 00:00: mouth in [place] the Medical morning. Branch aspirin 81 2023-0 Yes 81mg Take 1 Unive rs mg chewable 9-30 tablet by ity of tablet 00:00: mouth in [place] the Medical morning. Branch pantoprazol 2023-0 Yes 40mg Take 1 Univ ers e 40 mg EC 9-30 tablet by ity of tablet 00:00: mouth in [place] the Medical morning. Branch aspirin 81 2023-0 Yes 81mg Take 1 Unive rs mg chewable 9-30 tablet by ity of tablet 00:00: mouth in [place] the Medical morning. Branch pantoprazol 2023-0 Yes 40mg Take 1 Univ ers e 40 mg EC 9-30 tablet by ity of tablet 00:00: mouth in [place] the Medical morning. Branch aspirin 81 2023-0 Yes 81mg Take 1 Unive rs mg chewable 9-30 tablet by ity of tablet 00:00: mouth in [place] the Medical morning. Branch pantoprazol 2023-0 Yes 40mg Take 1 Univ ers e 40 mg EC 9-30 tablet by ity of tablet 00:00: mouth in [place] the Medical morning. Branch aspirin 81 2023-0 Yes 81mg Take 1 Unive rs mg chewable 9-30 tablet by ity of tablet 00:00: mouth in [place] the Medical morning. Branch pantoprazol 2023-0 Yes 40mg Take 1 Univ ers e 40 mg EC 9-30 tablet by ity of tablet 00:00: mouth in [place] the Medical morning. Branch aspirin 81 2023-0 Yes 81mg Take 1 Unive rs mg chewable 9-30 tablet by ity of tablet 00:00: mouth in [place] the Medical morning. Branch pantoprazol 2023-0 Yes 40mg Take 1 Univ ers e 40 mg EC 9-30 tablet by ity of tablet 00:00: mouth in [place] the Medical morning. Branch aspirin 81 2023-0 Yes 81mg Take 1 Unive rs mg chewable 9-30 tablet by ity of tablet 00:00: mouth in [place] the Medical morning. Branch pantoprazol 2023-0 Yes 40mg Take 1 Univ ers e 40 mg EC 9-30 tablet by ity of tablet 00:00: mouth in [place] 00 the Medical morning. Branch aspirin 81 2023-0 Yes 81mg Take 1 Unive rs mg chewable 9-30 tablet by ity of tablet 00:00: mouth in [place] 00 the Medical morning. Branch pantoprazol 2023-0 Yes 40mg Take 1 Univ ers e 40 mg EC 9-30 tablet by ity of tablet 00:00: mouth in [place] 00 the Medical morning. Branch aspirin 81 2023-0 Yes 81mg Take 1 Unive rs mg chewable 9-30 tablet by ity of tablet 00:00: mouth in [place] 00 the Medical morning. Branch pantoprazol 2023-0 Yes 40mg Take 1 Univ ers e 40 mg EC 9-30 tablet by ity of tablet 00:00: mouth in [place] the Medical morning. Branch aspirin 81 2023-0 Yes 81mg Take 1 Unive rs mg chewable 9-30 tablet by ity of tablet 00:00: mouth in [place] the Medical morning. Branch pantoprazol 2023-0 Yes 40mg Take 1 Univ ers e 40 mg EC 9-30 tablet by ity of tablet 00:00: mouth in [place] the Medical morning. Branch aspirin 81 2023-0 Yes 81mg Take 1 Unive rs mg chewable 9-30 tablet by ity of tablet 00:00: mouth in [place] the Medical morning. Branch pantoprazol 2023-0 Yes 40mg Take 1 Univ ers e 40 mg EC 9-30 tablet by ity of tablet 00:00: mouth in [place] the Medical morning. Branch aspirin 81 2023-0 Yes 81mg Take 1 Unive rs mg chewable 9-30 tablet by ity of tablet 00:00: mouth in [place] the Medical morning. Branch pantoprazol 2023-0 Yes 40mg Take 1 Univ ers e 40 mg EC 9-30 tablet by ity of tablet 00:00: mouth in [place] 00 the Medical morning. Branch aspirin 81 2023-0 Yes 81mg Take 1 Unive rs mg chewable 9-30 tablet by ity of tablet 00:00: mouth in [place] 00 the Medical morning. Branch pantoprazol 2023-0 Yes 40mg Take 1 Univ ers e 40 mg EC 9-30 tablet by ity of tablet 00:00: mouth in [place] 00 the Medical morning. Branch aspirin 81 2023-0 Yes 81mg Take 1 Unive rs mg chewable 9-30 tablet by ity of tablet 00:00: mouth in [place] 00 the Medical morning. Branch pantoprazol 2022-0 Yes 40mg Take 1 Univ ers e 40 mg EC 9-30 tablet by ity of tablet 00:00: mouth in [place] 00 the Medical morning. Branch aspirin 81 2022-0 Yes 81mg Take 1 Unive rs mg chewable 9-30 tablet by ity of tablet 00:00: mouth in [place] 00 the Medical morning. Branch pantoprazol 2022-0 Yes 40mg Take 1 Univ ers e 40 mg EC 9-30 tablet by ity of tablet 00:00: mouth in [place] 00 the Medical morning. Branch aspirin 81 2022-0 Yes 81mg Take 1 Unive rs mg chewable 9-30 tablet by ity of tablet 00:00: mouth in [place] 00 the Medical morning. Branch pantoprazol 2022-0 Yes 40mg Take 1 Univ ers e 40 mg EC 9-30 tablet by ity of tablet 00:00: mouth in [place] 00 the Medical morning. Branch aspirin 81 2022-0 Yes 81mg Take 1 Unive rs mg chewable 9-30 tablet by ity of tablet 00:00: mouth in [place] 00 the Medical morning. Branch pantoprazol 2022-0 Yes 40mg Take 1 Univ ers e 40 mg EC 9-30 tablet by ity of tablet 00:00: mouth in [place] 00 the Medical morning. Branch warfarin Yes 1mg 1 mg, Univers (COUMADIN) 01-11 Oral, ity of tablet 1 mg 22:00: QFRIDAY AT [place] 00 1700, Medical First dose Branch on Sat01/11/23 at 1700, Until Discontinu ed, Routine
INR Goal Range: 2-3
IND ICATION (More than one indication for warfarin can be selected): Atrial fibrillati on/flutter HYDROcodone 2022-2022- No 1 tablet U nivers -acetaminop 01-11 [...] Fri Branch 01/11/23 at 1000, Routine magnesium 3-0 202- No 2g 2 g, IV Univ [...] by ity of capsule 00:00: mouth in [place] [id number] the Medical morning Branch and 1 capsule at noon and 1 capsule in the evening. metoprolol 2022-0 Yes [id number] 37.5mg Take 37.5 Univers tartrate 9-29 mg by ity of 37.5 mg Tab 00:00: mouth [place] 00 the Medical morning Branch and 37.5 mg in the evening. ezetimibe 202-0 Yes [id number] 10mg Take 1 U nivers (ZETIA) 10 9-29 tablet by ity of mg tablet 00:00: [place] the Medical morning. Branch alendronate 2022-0 Yes 70mg Take 1 Univ ers 70 mg 9-29 tablet by ity of tablet 00:00: mouth [place] 00 weekly. Medical Branch gabapentin 2023-0 Yes 300mg Take 1 Univ ers 300 mg 9-29 capsule by ity of capsule 00:00: mouth in [place] 00 the Medical morning Branch and 1 capsule at noon and 1 capsule in the evening. metoprolol 3-0 Yes [id number] 37.5mg Take 37.5 Univers tartrate 9-29 mg by ity of 37.5 mg Tab 00:00: mouth in [place] 00 the Medical morning Branch and 37.5 mg in the evening. ezetimibe 2023-0 Yes [id number] 10mg Take 1 U nivers (ZETIA) 10 [...] capsule in the evening. metoprolol 2023-0 Yes [id number] 37.5mg Take 37.5 Univers tartrate 9-29 mg by ity of 37.5 mg Tab 00:00: mouth in [place] 00 the Medical morning Branch and 37.5 mg in the evening. ezetimibe 2023-0 Yes [id number] 10mg Take 1 U nivers (ZETIA) 10 9-29 tablet by ity of mg tablet 00:00: [place] the Medical morning. Branch alendronate 2023-0 Yes 70mg Take 1 Univ ers 70 mg 9-29 tablet by ity of tablet 00:00: mouth [place] weekly. Medical Branch gabapentin 3-0 Yes 300mg Take 1 Univ ers 300 mg 9-29 capsule by ity of capsule 00:00: mouth in [place] 00 the Medical morning Branch and 1 capsule at noon and 1 capsule in the evening. metoprolol 2023-0 Yes [id number] 37.5mg Take 37.5 Univers tartrate 9-29 mg by ity of 37.5 mg Tab 00:00: mouth in [place] 00 the Medical morning Branch and 37.5 mg in the evening. ezetimibe 2023-0 Yes [id number] 10mg Take 1 U nivers (ZETIA) 10 9-29 tablet by ity of mg tablet 00:00: [place] the Medical morning. Branch alendronate 2023-0 Yes 70mg Take 1 Univ ers 70 mg 9-29 tablet by ity of tablet 00:00: mouth weekly. Medical Branch gabapentin 2023-0 Yes 300mg Take 1 Univ ers 300 mg 9-29 capsule by ity of capsule 00:00: mouth in [place] 00 the Medical morning Branch and 1 capsule at noon and 1 capsule in the evening. metoprolol 2023-0 Yes [id number] 37.5mg Take 37.5 Univers tartrate 9-29 mg by ity of 37.5 mg Tab 00:00: mouth in [place] 00 the Medical morning Branch and 37.5 mg in the evening. ezetimibe 2023-0 Yes [id number] 10mg Take 1 U nivers (ZETIA) 10 [...] capsule in the evening. metoprolol 2023-0 Yes [id number] 37.5mg Take 37.5 Univers tartrate 9-29 mg by ity of 37.5 mg Tab 00:00: mouth in [place] 00 the Medical morning Branch and 37.5 mg in the evening. ezetimibe 2023-0 Yes [id number] 10mg Take 1 U nivers (ZETIA) 10 [...] capsule in the evening. metoprolol 2023-0 Yes [id number] 37.5mg Take 37.5 Univers tartrate 9-29 mg by ity of 37.5 mg Tab 00:00: mouth in [place] 00 the Medical morning Branch and 37.5 mg in the evening. ezetimibe 2023-0 Yes [id number] 10mg Take 1 U nivers (ZETIA) 10 [...] capsule in the evening. metoprolol 2023-0 Yes [id number] 37.5mg Take 37.5 Univers tartrate 9-29 mg by ity of 37.5 mg Tab 00:00: mouth [place] the Medical morning Branch and 37.5 mg in the evening. ezetimibe 2023-0 Yes [id number] 10mg Take 1 U nivers (ZETIA) 10 9-29 tablet by ity of mg tablet 00:00: [facility] morning. Branch alendronate 2023-0 Yes 70mg Take 1 Univ ers 70 mg 9-29 tablet by ity of tablet 00:00: mouth [place] 00 weekly. Medical Branch gabapentin 2023-0 Yes 300mg Take 1 Univ ers 300 mg 9-29 capsule by ity of capsule 00:00: mouth in [place] the Medical morning Branch and 1 capsule at noon and 1 capsule in the evening. metoprolol 2023-0 Yes [id number] 37.5mg Take 37.5 Univers tartrate 9-29 mg by ity of 37.5 mg Tab 00:00: mouth in [place] the Medical morning Branch and 37.5 mg in the evening. ezetimibe 2023-0 Yes [id number] 10mg Take 1 [facility] nivers (ZETIA) 10 9-29 tablet by ity of mg tablet 00:00: mouth in [facility] the Medical morning. Branch alendronate 2023-0 Yes 70mg Take 1 [facility] ers 70 mg 9-29 tablet by ity of tablet 00:00: mouth [place] 00 weekly. Medical Branch gabapentin 2023-0 Yes 300mg Take 1 Univ ers 300 mg 9-29 capsule by ity of capsule 00:00: mouth in [place] the Medical morning Branch and 1 capsule at noon and 1 capsule in the evening. metoprolol 2023-0 Yes [id number] 37.5mg Take 37.5 [facility] tartrate 9-29 mg by ity of 37.5 mg Tab 00:00: mouth in [place] the Medical morning Branch and 37.5 mg in the evening. ezetimibe 2023-0 Yes [id number] 10mg Take 1 [facility] n[facility] (ZETIA) 10 9-29 tablet by ity of mg tablet 00:00: mouth [place] the Medical morning. Branch alendronate 2023-0 Yes 70mg Take 1 [facility] ers 70 mg 9-29 tablet by ity of tablet 00:00: mouth [place] weekly. Medical Branch gabapentin 2023-0 Yes 300mg Take 1 [facility] ers 300 mg 9-29 capsule by ity of capsule 00:00: mouth in [place] 00 the Medical morning Branch and 1 capsule at noon and 1 capsule in the evening. metoprolol 2023-0 Yes [id number] 37.5mg Take 37.5 [facility] tartrate 9-29 mg by ity of 37.5 mg Tab 00:00: mouth in [place] the Medical morning Branch and 37.5 mg in the evening. ezetimibe 2023-0 Yes [id number] 10mg Take 1 [facility] (ZETIA) 10 9-29 tablet by ity of mg tablet 00:00: [place] the Medical morning. Branch alendronate 3-0 Yes 70mg Take 1 [facility] ers 70 mg 9-29 tablet by ity of tablet 00:00: mouth [place] weekly. Medical Branch gabapentin 3-0 Yes 300mg Take 1 [facility] ers 300 mg 9-29 capsule by ity of capsule 00:00: mouth in [place] the Medical morning Branch and 1 capsule at noon and 1 capsule in the evening. metoprolol 2023-0 Yes [id number] 37.5mg Take 37.5 [facility] tartrate 9-29 mg by ity of 37.5 mg Tab 00:00: mouth in [place] 00 the Medical morning Branch and 37.5 mg in the evening. ezetimibe 2023-0 Yes [id number] 10mg Take 1 [facility] (ZETIA) 10 9-29 tablet by ity of mg tablet 00:00: mouth [place] the Medical morning. Branch alendronate 2023-0 Yes 70mg Take 1 [facility] ers 70 mg 9-29 tablet by ity of tablet 00:00: mouth [place] weekly. Medical Branch gabapentin 2023-0 Yes 300mg Take 1 [facility] ers 300 mg 9-29 capsule by ity of capsule 00:00: mouth in [place] 00 the Medical morning Branch and 1 capsule at noon and 1 capsule in the evening. metoprolol 2023-0 Yes [id number] 37.5mg Take 37.5 [facility] tartrate 9-29 mg by ity of 37.5 mg Tab 00:00: mouth in [place] 00 the Medical morning Branch and 37.5 mg in the evening. ezetimibe 2023-0 Yes [id number] 10mg Take 1 [facility] nivers (ZETIA) 10 9-29 tablet by ity of mg tablet 00:00: mouth [place] 00 the Medical morning. Branch alendronate 2023-0 Yes 70mg Take 1 Univ ers 70 mg 9-29 tablet by ity of tablet 00:00: mouth [place] 00 weekly. Medical Branch gabapentin 3-0 Yes 300mg Take 1 [facility] ers 300 mg 9-29 capsule by ity of capsule 00:00: mouth in [place] 00 the Medical morning Branch and 1 capsule at noon and 1 capsule in the evening. metoprolol 2023-0 Yes [id number] 37.5mg Take 37.5 [facility] tartrate 9-29 mg by ity of 37.5 mg Tab 00:00: mouth in [place] 00 the Medical morning Branch and 37.5 mg in the evening. ezetimibe 2023-0 Yes [id number] 10mg Take 1 [facility]ivers (ZETIA) 10 9-29 tablet by ity of mg tablet 00:00: [place] 00 the Medical morning. Branch alendronate 2023-0 Yes 70mg Take 1 Univ ers 70 mg 9-29 tablet by ity of tablet 00:00: mouth [place] 00 weekly. Medical Branch gabapentin 2023-0 Yes 300mg Take 1 [facility] ers 300 mg 9-29 capsule by ity of capsule 00:00: mouth in [place] 00 the Medical morning Branch and 1 capsule at noon and 1 capsule in the evening. metoprolol 2023-0 Yes [id number] 37.5mg Take 37.5 [facility] tartrate 9-29 mg by ity of 37.5 mg Tab 00:00: mouth in [place] 00 the Medical morning Branch and 37.5 mg in the evening. ezetimibe 2023-0 Yes [id number] 10mg Take 1 [facility] nivers (ZETIA) 10 [...] capsule in the evening. metoprolol 2023-0 Yes [id number] 37.5mg Take 37.5 [facility] tartrate 9-29 mg by ity of 37.5 mg Tab 00:00: mouth in [place] 00 the Medical morning Branch and 37.5 mg in the evening. ezetimibe 2023-0 Yes [id number] 10mg Take 1 [facility] nivers (ZETIA) 10 9-29 tablet by ity of mg tablet 00:00: mouth [place] 00 the Medical morning. Branch alendronate 3-0 Yes 70mg Take 1 Univ ers 70 mg 9-29 tablet by ity of tablet 00:00: mouth [place] weekly. Medical Branch gabapentin 3-0 Yes 300mg Take 1 Univ ers 300 mg 9-29 capsule by ity of capsule 00:00: mouth in [place] 00 the Medical morning Branch and 1 capsule at noon and 1 capsule in the evening. metoprolol 3-0 Yes [id number] 37.5mg Take 37.5 [facility] tartrate 9-29 mg by ity of 37.5 mg Tab 00:00: mouth in [place] 00 the Medical morning Branch and 37.5 mg in the evening. ezetimibe 2023-0 Yes [id number] 10mg Take 1 [facility] nivers (ZETIA) 10 9-29 tablet by ity of mg tablet 00:00: mouth [place] 00 the Medical morning. Branch alendronate 3-0 Yes 70mg Take 1 Univ ers 70 mg 9-29 tablet by ity of tablet 00:00: mouth [place] 00 weekly. Medical Branch warfarin 3-0 Yes 1mg 1 mg, Univers (COUMADIN) 01-10 Oral, ity of tablet 1 mg 22:00: QTHURSDAY T ex AT 1700, Medical First dose Branch on Sat01/10/23 at 1700, Until Discontinu ed, Routine
INR Goal Range: 2-3
IND ICATION (More than one indication for warfarin can be selected): Atrial fibrillati on/flutter aspirin 0 Yes 81mg 81 mg, Univers chewable 01-10 Oral, ity of tablet 81 15:00: DAILY, [place] mg 00 First dose Medical on [place] [facility] 01/10/23 at 1000, Until Discontinu ed, Routine furosemide 0 202- No 20mg 20 mg, Univ ers (LASIX) 01-10 Slow IV ity of injection 14:30: 14:01 Push, [place] 20 mg 00 :00 ONCE, 1 Medical dose, On Branch Sat01/10/23 at 0930, Routine Lidocaine Yes 1{patch 1 Patch, U nivers (LIDOCARE) 01-10 } Topical, ity o f 4 % patch 1 14:00: Administer [place] Patch 00 over 12 Medical Hours, Branch DAILY, First dose (after last modificati on) on Sat01/10/23 at 0900, Until Discontinu ed, Routine sennosides- Yes 1{tbl} 1 tablet, [facility] docusate 01-10 Oral, ity of sodium 14:00: DAILY, [place] (SENOKOT-S) 00 First dose Me dical 8.6-50 mg on [place] [facility] per tablet 01/10/23 at 1 tablet [...] 01-09 Oral, ity of (TYLENOL) 20:33: Q6HPRN, [place] tablet 650 11 Starting Medic al mg on Sat01/09/23 at 1533, Until Discontinu ed, Routine, Pain (scale 1-3) METOPROLOL 0 2022- No Metoprolol Univers TARTRATE 01-0924 Oral ity of ORAL 15:15: 00:00 (Tartrate) [place] 06 :00 active [facility] Branch lidocaine 0 2022- No 1{patch 1 Patch, Univers (LIDODERM) 01-09 } Topical, ity of 5 % (700 14:00: 13:57 Administer [place] mg/patch) 00 :26 over 12 Medical patch 1 Hours, [place] Patch DAILY, First dose on Sat01/09/23 at 0900, Until Discontinu ed, Routine aspirin 81 2022-0 Yes Aspirin Univ ers mg chewable 01-09 Oral ity of tablet 13:57: active [place] 07 [facility] zolpidem 0 Yes 5mg 5 mg, Univers [...] Sat01/08/23 at 1999, Until Discontinu ed, Routine warfarin 0 Yes [...] dose, On Sat01/08/23 at 1345, Routine HYDROcodone 0 Yes 1{tbl} 1 tablet, Univers -acetaminop 01-08 [...] ed, Routine, Nausea and Vomiting (N/V) metoprolol 0 2022- No 12.5mg 12.5 mg, Univers tartrate 01-08 Oral, ity of (LOPRESSOR) 17:00: 00:28 QNOON, [place] tablet 12.5 00 :53 First dose Me dical mg on Sat Branch 01/08/23 at 1200, Until Discontinu ed, Routine atorvastati Yes 80mg 80 mg, Univ ers n (LIPITOR) 01-08 Oral, QHS, it y of tablet 80 02:00: First dose [place] mg 00 on [facility] 01/07/23 at Branch 2100, Until Discontinu ed, Routine metoprolol 2022-0 2023- No 25mg 25 mg, Univ ers tartrate 01-08 Oral, BID, ity of (LOPRESSOR) 01:00: 00:28 First dose [place] tablet 25 00 :53 on [facility] Medical mg 01/07/23 at Branch 2000, Until Discontinu ed, Routine warfarin Yes 2mg 2 mg, Univers (COUMADIN) 01-07 Oral, ity of tablet 2 mg 22:00: QMONDAY AT [place] 00 1700, Medical First dose Branch on [facility] 01/07/23 at 1700, Until Discontinu ed, Routine
INR Goal Range: 2-3
IND ICATION (More than one indication for warfarin can be selected): Atrial fibrillati on/flutter pantoprazol Yes 40mg 40 mg, Univ ers e 01-07 Oral, ity of (PROTONIX) 14:00: DAILY, [place] EC tablet 00 First dose Medi tyrone 40 mg on [facility] 01/07/23 at 0900, Until Discontinu ed, Routine ezetimibe Yes 10mg 10 mg, Univer s (ZETIA) 01-07 Oral, ity of tablet 10 14:00: DAILY, [place] mg 00 First dose Medical on [facility] 01/07/23 at 0900, Until Discontinu ed, Routine aspirin No 324mg 324 mg, Unive rs chewable 01-07 Oral, ity of tablet 324 14:00: 12:26 DAILY, [place] mg 00 :42 First dose Medical on [facility] 01/07/23 at 0900, Until Discontinu ed, Routine dofetilide No 125ug 125 mcg, U nivers (TIKOSYN) 01-07 Oral, ity of capsule 125 13:30: 00:59 Q12H, [place] mcg 00 :03 First dose Medical on [facility] 01/07/23 at 0830, Until Discontinu ed, Routine
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 Restricted medication : ALICIA SMITH FENTanyl PF No 50ug 50 mcg, [facility] (SUBLIMAZE 01-07 Slow IV ity o f (PF)) 11:27: 15:53 Push, [place] injection 31 :26 Q4HPRN, Medical 50 mcg Starting [place] on 01/07/23 at 0627, Until Sat01/08/23 at [...] -25 Oral ity of tablet 08:31: active [address] aspirin 81 2022-0 Yes Aspirin Univ ers mg chewable -25 Oral ity of tablet 08:31: active [address] aspirin 81 2022-0 Yes Aspirin Univ ers mg chewable -25 Oral ity of tablet 08:31: active [address] HYDROcodone 0 Yes 1 tablet Un [...] [place] 00 :00 dose, On Medical [facility] 01/07/23 at 0115, Routine
INR Goal Range: 2-3
IND ICATION (More than one indication for warfarin can be selected): Mechanical AVR zolpidem 2022- No 10mg 10 mg, Univer s (AMBIEN) 01-07 Oral, ity of tablet 10 05:20: 23:31 QHSPRN, [place] mg 11 :24 Starting Medical on [facility] 01/07/23 at 0020, Until Sat01/08/23 at 1831, Routine, Insomnia ketorolac 2022- No 15mg 15 mg, Unive rs (TORADOL) 01-07 Slow IV ity of injection 04:00: 03:27 Push, [place] 15 mg 00 :00 ONCE, 1 Medical dose, On [facility] 01/06/23 at 2300, Routine ondansetron 2022- No 4mg 4 mg, Slow Univers (ZOFRAN 01-07 IV Push, ity of (PF)) 02:36: 17:27 Q6HPRN, [place] injection 4 30 :33 Starting Medi tyrone mg on [facility] 01/06/23 at 2136, Until Sat01/08/23 at 1227, Routine, Nausea and Vomiting (N/V) acetaminoph 2022- No 650mg 650 mg, U nivers en 01-07 Oral, ity of (TYLENOL) 02:35: 11:27 Q6HPRN, [place] tablet 650 26 :44 Starting Medic al mg on [facility] 01/06/23 at 2135, Until [facility] 01/07/23 at 0627, Routine, Pain (scale 1-3) ondansetron 2022- No 4mg 4 mg, Slow Univers (ZOFRAN 01-07 IV Push, ity of (PF)) 01:15: 01:04 ONCE, 1 [place] injection 4 00 :00 dose, On Medi tyrone mg [facility] 01/06/23 at 2015, ОЛЕГ metoprolol 2022- No 25mg 25 mg, Univ ers tartrate 01-07 Oral, ity of (LOPRESSOR) 00:00: 23:30 ONCE, 1 [place] tablet 25 00 :00 dose, On Medica l mg [facility] 01/06/23 at 1900, Routine FENTanyl PF 2022- No 25ug 25 mcg, [facility] (SUBLIMAZE 01-06 Slow IV ity o f (PF)) 23:15: 23:19 Push, [place] injection 00 :00 ONCE, 1 Medical 25 mcg dose, On [facility] 01/06/23 at 1815, STAT metoprolol 2022- No 5mg 5 mg, Slow Univers (LOPRESSOR) 01-06 IV Push, ity of injection 5 23:15: 23:22 ONCE, 1 [place] mg 00 :00 dose, On [facility] 01/06/23 at 1815, ОЛЕГ pantoprazol 2022- No 40mg Take 1 Uni vers e 40 mg EC 12-21 tablet by ity of tablet 00:00: 00:00 mouth in [place] 00 :00 the [facility] Branch and 1 tablet in the evening. warfarin 1 Yes [id number] 2mg [facility] mg tablet 12-20 3x/week ity of 00:00: 1mg 4x/week Medical Branch warfarin 1 Yes [id number] 2mg [place] mg tablet 12-20 3x/week ity of 00:00: 1mg 4x/week Medical Branch warfarin 1 Yes [id number] 2mg [place] mg tablet 12-20 3x/week ity of 00:00: 1mg 4x/week Medical Branch dofetilide Yes [id number] 2 (two) Univers 125 mcg - times a ity of capsule 00:00: day [place] [facility] Branch warfarin 1 Yes [id number] 2mg [facility] mg tablet 12-20 3x/week ity of 00:00: 1mg 4x/week Medical Branch dofetilide Yes [id number] 2 (two) Univers 125 mcg 9-07 times a ity of capsule 00:00: day [place] Medical Branch warfarin 1 Yes [id number] 2mg [facility] [place] mg tablet 12-20 3x/week ity of 00:00: 1mg 4x/week Medical Branch dofetilide Yes [id number] 2 (two) Univers 125 mcg 9-07 times a ity of capsule 00:00: day Medical Branch warfarin 1 Yes [id number] 2mg [place] mg tablet 12-20 3x/week ity of 00:00: 1mg 4x/week Medical Branch dofetilide Yes [id number] 2 (two) Univers 125 mcg 9-07 times a ity of capsule 00:00: day Medical Branch warfarin 1 Yes [id number] 2mg [place] mg tablet 12-20 3x/week ity of 00:00: 1mg 4x/week Medical Branch dofetilide Yes [id number] 2 (two) Univers 125 mcg 9-07 times a ity of capsule 00:00: day Medical Branch warfarin 1 Yes [id number] 2mg [place] mg tablet 12-20 3x/week ity of 00:00: 1mg 4x/week Medical Branch dofetilide Yes [id number] 2 (two) Univers 125 mcg 9-07 times a ity of capsule 00:00: day Medical Branch amoxicillin Yes 1{tbl} Take 1 [facility] -clavulanat 12-20 tablet by ity of e 875-125 00:00: mouth [place] mg per 00 every Medical tablet morning Branch and evening. warfarin 1 Yes [id number] 2mg [place] mg tablet 12-20 3x/week ity of 00:00: 1mg 4x/week Medical Branch dofetilide Yes [id number] 2 (two) Univers 125 mcg 9-07 times a ity of capsule 00:00: day Medical Branch amoxicillin Yes 1{tbl} Take 1 [facility] -clavulanat 12-20 tablet by ity of e 875-125 00:00: mouth [place] mg per 00 every Medical tablet morning Branch and evening. warfarin 1 2023-0 Yes [id number] 2mg [place] mg tablet 12-20 3x/week ity of 00:00: 1mg 4x/week Medical Branch dofetilide Yes [id number] 2 (two) Univers 125 mcg 9-07 times a ity of capsule 00:00: day Medical Branch amoxicillin Yes 1{tbl} Take 1 [facility] -clavulanat 12-20 tablet by ity of e 875-125 00:00: mouth [place] mg per 00 every Medical tablet morning Branch and evening. warfarin 1 Yes [id number] 2mg [place] mg tablet 12-20 3x/week ity of 00:00: 1mg 4x/week Medical Branch dofetilide Yes [id number] 2 (two) Univers 125 mcg 9-07 times a ity of capsule 00:00: day Medical Branch amoxicillin Yes 1{tbl} Take 1 [facility] -clavulanat 12-20 tablet by ity of e 875-125 00:00: mouth [place] mg per 00 every Medical tablet morning Branch and evening. warfarin Yes [id number] 2mg [place] mg tablet 12-20 3x/week ity of 00:00: 1mg 4x/week Medical Branch dofetilide Yes [id number] 2 (two) Univers 125 mcg 9-07 times a ity of capsule 00:00: day Medical Branch warfarin 1 Yes [id number] 2mg [place] mg tablet 12-20 3x/week ity of 00:00: 1mg 4x/week Medical Branch dofetilide Yes [id number] 2 (two) Univers 125 mcg 9-07 times a ity of capsule 00:00: day Medical Branch warfarin 1 Yes [id number] 2mg [place] mg tablet 12-20 3x/week ity of 00:00: 1mg 4x/week Medical Branch warfarin 1 Yes [id number] 2mg [place] mg tablet 12-20 3x/week ity of 00:00: 1mg 4x/week Medical Branch warfarin 1 Yes [id number] 2mg [place] mg tablet 12-20 3x/week ity of 00:00: 1mg 4x/week Medical Branch warfarin 1 2022-0 Yes [id number] 2mg [place] mg tablet 12-20 3x/week ity of 00:00: 1mg 4x/week Medical Branch warfarin 1 2022-0 Yes [id number] 2mg [place] mg tablet 12-20 3x/week ity of 00:00: 1mg 4x/week Medical Branch warfarin 1 2022-0 Yes [id number] 2mg [place] mg tablet 12-20 3x/week ity of 00:00: 1mg 4x/week Medical Branch warfarin 1 2022-0 Yes [id number] 2mg [place] mg tablet 12-20 3x/week ity of 00:00: 1mg 4x/week Medical Branch warfarin 1 2022-0 Yes [id number] 2mg [place] mg tablet 12-20 3x/week ity of 00:00: 1mg 4x/week Medical Branch warfarin 1 2022-0 Yes [id number] 2mg [place] mg tablet 12-20 3x/week ity of 00:00: 1mg 4x/week Medical Branch warfarin 1 2022-0 Yes [id number] 2mg [place] mg tablet 12-20 3x/week ity of 00:00: 1mg 4x/week Medical Branch warfarin 1 2022-0 Yes [id number] 2mg [place] mg tablet 12-20 3x/week ity of 00:00: 1mg 4x/week Medical Branch warfarin 1 2022-0 Yes [id number] 2mg [place] mg tablet 12-20 3x/week ity of 00:00: 1mg 4x/week Medical Branch warfarin 1 2022-0 Yes [id number] 2mg [place] mg tablet 12-20 3x/week ity of 00:00: 1mg 4x/week Medical Branch warfarin 1 2022-0 2022- No [id number] 2mg U nivers mg tablet 12-20 10- 3x/week ity of 00:00: 00:00 1mg [place] 00 :00 4x/week Medical Branch dofetilide 2022- No [id number] 2 (two) Univers 125 mcg 12-20 times a ity of capsule 00:00: 00:00 day [place] 00 :00 Medical Branch amoxicillin 2022-0 2022- No 1{tbl} Take 1 U nivers -clavulanat 12-20 tablet by it y of e 875-125 00:00: 00:00 mouth [place] mg per 00 :00 every Medical tablet morning Branch and evening. metoprolol 0 Yes Univers tartrate 25 8-11 ity of mg tablet 00:00: [place] Medical Branch metoprolol 0 Yes Univers tartrate 25 8-11 ity of mg tablet 00:00: [place] Medical Branch metoprolol 0 Yes Univers tartrate 25 8-11 ity of mg tablet 00:00: [place] Medical Branch metoprolol 0 Yes Univers tartrate 25 8-11 ity of mg tablet 00:00: Medical Branch metoprolol 0 2022- No Univer s tartrate 25 11-2329 ity of mg tablet 00:00: 00:00 [place] 00 :00 Medical Branch Diclofenac 0 Yes Univers Sodium 1 % 8-08 ity of gel 00:00: [place] 00 Medical Branch Diclofenac 0 Yes Univers Sodium 1 % 8-08 ity of gel 00:00: [place] 00 Medical Branch Diclofenac 2022-0 Yes Univers Sodium 1 % 8-08 ity of gel 00:00: [place] 00 Medical Branch Diclofenac 2022-0 Yes Univers Sodium 1 % 8-08 ity of gel 00:00: 00 Medical Branch Diclofenac 2022-0 2022- No Univer s Sodium 1 % 8-08 29 ity of gel 00:00: 00:00 [place] 00 :00 Medical Branch atorvastati 2022-0 Yes 80mg Take 1 Univ ers n 80 mg 7-12 tablet by ity of tablet 00:00: mouth at [place] [id number] bedtime. Medical Branch atorvastati 0 Yes 80mg Take 1 Univ ers n 80 mg 7-12 tablet by ity of tablet 00:00: mouth at [place] [id number] bedtime. Medical Branch atorvastati 0 Yes 80mg Take 1 Univ ers n 80 mg 7-12 tablet by ity of tablet 00:00: mouth at [place] [id number] bedtime. Medical Branch atorvastati 3-0 Yes 80mg Take 1 Univ ers n 80 mg 7-12 tablet by ity of tablet 00:00: mouth at [place] [id number] bedtime. Medical Branch atorvastati 3-0 Yes 80mg Take 1 Univ ers n 80 mg 7-12 tablet by ity of tablet 00:00: mouth at [place] [id number] bedtime. Medical Branch atorvastati 3-0 Yes 80mg Take 1 Univ ers n 80 mg 7-12 tablet by ity of tablet 00:00: mouth at [place] [id number] bedtime. Medical Branch atorvastati 3-0 Yes 80mg Take 1 Univ ers n 80 mg 7-12 tablet by ity of tablet 00:00: mouth at [place] [id number] bedtime. Medical Branch atorvastati 3-0 Yes 80mg Take 1 Univ ers n 80 mg 7-12 tablet by ity of tablet 00:00: mouth at [place] [id number] bedtime. Medical Branch atorvastati 3-0 Yes 80mg Take 1 Univ ers n 80 mg 7-12 tablet by ity of tablet 00:00: mouth at [place] [address] bedtime. Medical Branch atorvastati 3-0 Yes 80mg Take 1 Univ ers n 80 mg 7-12 tablet by ity of tablet 00:00: mouth at [place] [id number] bedtime. Medical Branch atorvastati 3-0 Yes 80mg Take 1 Univ ers n 80 mg 7-12 tablet by ity of tablet 00:00: mouth at [place] [id number] bedtime. Medical Branch atorvastati 3-0 Yes 80mg Take 1 Univ ers n 80 mg 7-12 tablet by ity of tablet 00:00: mouth at [place] [id number] bedtime. Medical Branch atorvastati 3-0 Yes 80mg Take 1 Univ ers n 80 mg 7-12 tablet by ity of tablet 00:00: mouth at [place] [id number] bedtime. Medical Branch atorvastati 2023-0 Yes 80mg Take 1 Univ ers n 80 mg 7-12 tablet by ity of tablet 00:00: mouth at [place] [id number] bedtime. Medical Branch atorvastati 2023-0 Yes 80mg Take 1 Univ ers n 80 mg 7-12 tablet by ity of tablet 00:00: mouth at [place] [address] bedtime. Medical Branch atorvastati 2023-0 Yes 80mg Take 1 Univ ers n 80 mg 7-12 tablet by ity of tablet 00:00: mouth at [place] [address] bedtime. Medical Branch atorvastati 3-0 Yes 80mg Take 1 Univ ers n 80 mg 7-12 tablet by ity of tablet 00:00: mouth at [place] bedtime. Medical Branch atorvastati 3-0 Yes 80mg Take 1 Univ ers n 80 mg 7-12 tablet by ity of tablet 00:00: mouth at [place] bedtime. Medical Branch atorvastati 3-0 Yes 80mg Take 1 Univ ers n 80 mg 7-12 tablet by ity of tablet 00:00: mouth at [place] bedtime. Medical Branch atorvastati 3-0 Yes 80mg Take 1 Univ ers n 80 mg 7-12 tablet by ity of tablet 00:00: mouth at [place] [id number] bedtime. Medical Branch atorvastati 3-0 Yes 80mg Take 1 Univ ers n 80 mg 7-12 tablet by ity of tablet 00:00: mouth at [place] [address] bedtime. Medical Branch atorvastati 3-0 Yes 80mg Take 1 Univ ers n 80 mg 7-12 tablet by ity of tablet 00:00: mouth at [place] [address] bedtime. Medical Branch atorvastati 3-0 Yes 80mg Take 1 Univ ers n 80 mg 7-12 tablet by ity of tablet 00:00: mouth at [place] [address] bedtime. Medical Branch atorvastati 3-0 Yes 80mg Take 1 Univ ers n 80 mg 7-12 tablet by ity of tablet 00:00: mouth at [place] [address] bedtime. Medical Branch atorvastati 3-0 Yes 80mg Take 1 Univ ers n 80 mg 7-12 tablet by ity of tablet 00:00: mouth at [place] [address] bedtime. Medical Branch atorvastati 3-0 Yes 80mg Take 1 Univ ers n 80 mg 7-12 tablet by ity of tablet 00:00: mouth at [place] [address] bedtime. Medical Branch atorvastati 2023-0 Yes 80mg Take 1 Univ ers n 80 mg 7-12 tablet by ity of tablet 00:00: mouth at [place] [address] bedtime. Medical Branch atorvastati 3-0 Yes 80mg Take 1 Univ ers n 80 mg 7-12 tablet by ity of tablet 00:00: mouth at [place] [address] bedtime. Medical Branch atorvastati 3-0 Yes 80mg Take 1 Univ ers n 80 mg 7-12 tablet by ity of tablet 00:00: mouth at [place] [address] bedtime. Medical Branch atorvastati 3-0 Yes 80mg Take 1 Univ ers n 80 mg 7-12 tablet by ity of tablet 00:00: mouth at [place] [address] bedtime. Medical Branch atorvastati 3-0 Yes 80mg Take 1 Univ ers n 80 mg 7-12 tablet by ity of tablet 00:00: mouth at [place] [address] bedtime. Medical Branch atorvastati 3-0 Yes 80mg Take 1 Univ ers n 80 mg 7-12 tablet by ity of tablet 00:00: mouth at [place] [address] bedtime. Medical Branch atorvastati 3-0 Yes 80mg Take 1 Univ ers n 80 mg 7-12 tablet by ity of tablet 00:00: mouth at [place] [address] bedtime. Medical Branch atorvastati 3-0 Yes 80mg Take 1 Univ ers n 80 mg 7-12 tablet by ity of tablet 00:00: mouth at [place] [address] bedtime. Medical Branch atorvastati 3-0 Yes 80mg Take 1 Univ ers n 80 mg 7-12 tablet by ity of tablet 00:00: mouth at [place] [address] bedtime. Medical Branch atorvastati 3-0 Yes 80mg Take 1 Univ ers n 80 mg 7-12 tablet by ity of tablet 00:00: mouth at [place] [address] bedtime. Medical Branch atorvastati 3-0 Yes 80mg Take 1 Univ ers n 80 mg 7-12 tablet by ity of tablet 00:00: mouth at [place] [address] bedtime. Medical Branch atorvastati 3-0 Yes 80mg Take 1 Univ ers n 80 mg 7-12 tablet by ity of tablet 00:00: mouth at [place] [address] bedtime. Medical Branch atorvastati 2023-0 Yes 80mg Take 1 Univ ers n 80 mg 7-12 tablet by ity of tablet 00:00: mouth at [place] [address] bedtime. Medical Branch atorvastati 2023-0 Yes 80mg Take 1 Univ ers n 80 mg 7-12 tablet by ity of tablet 00:00: mouth at [place] [address] bedtime. Medical Branch atorvastati 2023-0 Yes 80mg Take 1 Univ ers n 80 mg 7-12 tablet by ity of tablet 00:00: mouth at [place] [address] bedtime. Medical Branch atorvastati 3-0 Yes 80mg Take 1 Univ ers n 80 mg 7-12 tablet by ity of tablet 00:00: mouth at [place] bedtime. Medical Branch atorvastati 3-0 Yes 80mg Take 1 Univ ers n 80 mg 7-12 tablet by ity of tablet 00:00: mouth at [place] bedtime. Medical Branch atorvastati 3-0 Yes 80mg Take 1 Univ ers n 80 mg 7-12 tablet by ity of tablet 00:00: mouth at [place] bedtime. Medical Branch atorvastati 3-0 Yes 80mg Take 1 Univ ers n 80 mg 7-12 tablet by ity of tablet 00:00: mouth at [place] [id number] bedtime. Medical Branch atorvastati 3-0 Yes 80mg Take 1 Univ ers n 80 mg 7-12 tablet by ity of tablet 00:00: mouth at [place] [id number] bedtime. Medical Branch atorvastati 3-0 Yes 80mg Take 1 Univ ers n 80 mg 7-12 tablet by ity of tablet 00:00: mouth at [place] [address] bedtime. Medical Branch atorvastati 3-0 Yes 80mg Take 1 [facility] n 80 mg 7-12 tablet by [facility] of tablet 00:00: mouth at [place] [address] bedtime. Medical Branch atorvastati 3-0 Yes 80mg Take 1 [facility] n 80 mg 7-12 tablet by [facility] of tablet 00:00: mouth at [place] [address] bedtime. Medical Branch atorvastati 3-0 Yes 80mg Take 1 [facility] n 80 mg 7-12 tablet by [facility] of tablet 00:00: mouth at [place] [address] bedtime. Medical Branch atorvastati 3-0 Yes 80mg Take 1 [facility] n 80 mg 7-12 tablet by it[facility] of tablet 00:00: mouth at [place] [address] bedtime. Medical Branch atorvastati 2023-0 Yes 80mg Take 1 [facility] n 80 mg 7-12 tablet by [facility] of tablet 00:00: mouth at [place] [address] bedtime. Medical Branch atorvastati 3-0 Yes 80mg Take 1 [facility] n 80 mg 7-12 tablet by [facility] of tablet 00:00: mouth at [place] [address] bedtime. Medical Branch atorvastati 2022-0 Yes 80mg Take 1 [facility] n 80 mg 7-12 tablet by [facility] of tablet 00:00: mouth at [place] [address] bedtime. Medical Branch atorvastati 2022-0 Yes 80mg Take 1 [facility] n 80 mg 7-12 tablet by it[facility] of tablet 00:00: mouth at [place] [address] bedtime. Medical Branch atorvastati 2022-0 Yes 80mg Take 1 [facility] n 80 mg 7-12 tablet by [facility] of tablet 00:00: mouth at [place] [address] bedtime. Medical Branch atorvastati 0 Yes 80mg Take 1 [facility] n 80 mg 7-12 tablet by [facility] of tablet 00:00: mouth at [place] [address] bedtime. Medical Branch atorvastati 2022-0 Yes 80mg Take 1 [facility] n 80 mg 7-12 tablet by [facility] of tablet 00:00: mouth at [place] [address] bedtime. Medical Branch atorvastati 0 Yes 80mg Take 1 [facility] n 80 mg 7-12 tablet by [facility] of tablet 00:00: mouth at [place] [address] bedtime. Medical Branch atorvastati 0 Yes 80mg Take 1 [facility] n 80 mg 7-12 tablet by it[facility] of tablet 00:00: mouth at [place] [address] bedtime. Medical Branch warfarin 1 0 Yes [id number] 2mg Take 2 [facility] mg tablet 7-07 tablets by ity of 00:00: mouth [place] 00 every Medical evening. Branch Take 1mg x3 days, then 2mg x 4 days warfarin 1 2022-0 Yes [id number] 2mg Take 2 [facility] mg tablet 7-07 tablets by ity of 00:00: mouth [place] 00 every Medical evening. Branch Take 1mg x3 days, then 2mg x 4 days warfarin 1 0 Yes [id number] 2mg Take 2 [facility] mg tablet 7-07 tablets by ity of 00:00: mouth [place] 00 every Medical evening. Branch Take 1mg x3 days, then 2mg x 4 days warfarin 1 2022-0 Yes [id number] 2mg Take 2 [facility] mg tablet 7-07 tablets by ity of 00:00: mouth [place] 00 every Medical evening. Branch Take 1mg x3 days, then 2mg x 4 days warfarin 1 2022-0 Yes [id number] 2mg Take 2 [facility] mg tablet 7-07 tablets by ity of 00:00: mouth [place] 00 every Medical evening. Branch Take 1mg x3 days, then 2mg x 4 days warfarin Yes [id number] 2mg Take 2 [facility] mg tablet 7-07 tablets by ity of 00:00: mouth [place] 00 every Medical evening. Branch Take 1mg x3 days, then 2mg x 4 days warfarin Yes [id number] 2mg Take 2 [facility] mg tablet 7-07 tablets by ity of 00:00: mouth [place] 00 every Medical evening. Branch Take 1mg x3 days, then 2mg x 4 days warfarin Yes [id number] 2mg Take 2 [facility] mg tablet 7-07 tablets by ity of 00:00: mouth [place] 00 every Medical evening. Branch Take 1mg x3 days, then 2mg x 4 days warfarin Yes [id number] 2mg Take 2 [facility] mg tablet 7-07 tablets by ity of 00:00: mouth [place] 00 every Medical evening. Branch Take 1mg x3 days, then 2mg x 4 days warfarin Yes [id number] 2mg Take 2 [facility] mg tablet 7-07 tablets by ity of 00:00: mouth [place] 00 every Medical evening. Branch Take 1mg x3 days, then 2mg x 4 days warfarin Yes [id number] 2mg Take 2 [facility] mg tablet 7-07 tablets by ity of 00:00: mouth [place] 00 every Medical evening. Branch Take 1mg x3 days, then 2mg x 4 days warfarin Yes [id number] 2mg Take 2 [facility] mg tablet 7-07 tablets by ity of 00:00: mouth [place] 00 every Medical evening. Branch Take 1mg x3 days, then 2mg x 4 days warfarin Yes [id number] 2mg Take 2 [facility] mg tablet 7-07 tablets by ity of 00:00: mouth [place] 00 every Medical evening. Branch Take 1mg x3 days, then 2mg x 4 days warfarin Yes [id number] 2mg Take 2 [facility] mg tablet 7-07 tablets by ity of 00:00: mouth [place] 00 every Medical evening. Branch Take 1mg x3 days, then 2mg x 4 days warfarin 0 Yes [id number] 2mg Take 2 [facility] mg tablet 7-07 tablets by ity of 00:00: mouth [place] 00 every Medical evening. Branch Take 1mg x3 days, then 2mg x 4 days warfarin 0 Yes [id number] 2mg Take 2 [facility] mg tablet 7-07 tablets by ity of 00:00: mouth [place] 00 every Medical evening. Branch Take 1mg x3 days, then 2mg x 4 days warfarin Yes [id number] 2mg Take 2 [facility] mg tablet 7-07 tablets by ity of 00:00: mouth [place] 00 every Medical evening. Branch Take 1mg x3 days, then 2mg x 4 days warfarin Yes [id number] 2mg Take 2 [facility] mg tablet 7-07 tablets by ity of 00:00: mouth [place] 00 every Medical evening. Branch Take 1mg x3 days, then 2mg x 4 days warfarin Yes [id number] 2mg Take 2 [facility] mg tablet 7-07 tablets by ity of 00:00: mouth [place] 00 every Medical evening. Branch Take 1mg x3 days, then 2mg x 4 days warfarin Yes [id number] 2mg Take 2 [facility] mg tablet 7-07 tablets by ity of 00:00: mouth [place] 00 every Medical evening. Branch Take 1mg x3 days, then 2mg x 4 days warfarin Yes [id number] 2mg Take 2 [facility] mg tablet 7-07 tablets by ity of 00:00: mouth [place] 00 every Medical evening. Branch Take 1mg x3 days, then 2mg x 4 days warfarin 0 Yes [id number] 2mg Take 2 [facility] mg tablet 7-07 tablets by ity of 00:00: mouth [place] 00 every Medical evening. Branch Take 1mg x3 days, then 2mg x 4 days warfarin 0 Yes [id number] 2mg Take 2 [facility] mg tablet 7-07 tablets by ity of 00:00: mouth [place] 00 every Medical evening. Branch Take 1mg x3 days, then 2mg x 4 days warfarin Yes [id number] 2mg Take 2 [facility] mg tablet 7-07 tablets by ity of 00:00: mouth [place] 00 every Medical evening. Branch Take 1mg x3 days, then 2mg x 4 days warfarin 1 Yes [id number] 2mg Take 2 [facility] mg tablet 7- tablets by ity of 00:00: mouth [place] 00 every Medical evening. Branch Take 1mg x3 days, then 2mg x 4 days warfarin 1 Yes [id number] 2mg Take 2 [facility] mg tablet 7- tablets by ity of 00:00: mouth [place] 00 every Medical evening. Branch Take 1mg x3 days, then 2mg x 4 days warfarin 1 Yes [id number] 2mg Take 2 [facility] mg tablet 10-19 tablets by ity of 00:00: mouth [place] 00 every Medical evening. Branch Take 1mg x3 days, then 2mg x 4 days warfarin 1 Yes [id number] 2mg Take 2 [facility] mg tablet 10-19 tablets by ity of 00:00: mouth [place] 00 every Medical evening. Branch Take 1mg x3 days, then 2mg x 4 days warfarin 1 Yes [id number] 2mg Take 2 [facility] mg tablet 10-19 tablets by ity of 00:00: mouth [place] 00 every Medical evening. Branch Take 1mg x3 days, then 2mg x 4 days warfarin 1 2022- No [id number] 2mg Take 2 [facility] mg tablet 10-19 tablets by ity of 00:00: 00:00 mouth [place] 00 :00 every Medical evening. Branch Take 1mg x3 days, then 2mg x 4 days warfarin 1 2022- No [id number] 2mg Take 2 [facility] mg tablet 10-19 tablets by ity of 00:00: 00:00 mouth [place] 00 :00 every Medical evening. Branch Take 1mg x3 days, then 2mg x 4 days alendronate 2022-0 2022- No 70mg Take 1 [facility] vers 70 mg 5-26 -24 tablet by it[facility] of tablet 00:00: 00:00 mouth. [place] 00 :00 Medical Branch ezetimibe 0 Yes [id number] 10mg Take 1 [facility] (ZETIA) 10 4-18 tablet by [facility] mg tablet 00:00: mouth [facility] morning. Branch ezetimibe 2022-0 Yes [id number] 10mg Take 1 [facility] (ZETIA) 10 4-18 tablet by [facility] mg tablet 00:00: mouth [place] 00 the Medical morning. Branch ezetimibe 2023-0 Yes [id number] 10mg Take 1 [facility] (ZETIA) 10 4-18 tablet by [facility] mg tablet 00:00: mouth [place] 00 the Medical morning. Branch ezetimibe 2023-0 Yes [id number] 10mg Take 1 [facility] (ZETIA) 10 4-18 tablet by [facility] mg tablet 00:00: mouth [place] 00 the Medical morning. Branch ezetimibe 2023-0 Yes [id number] 10mg Take 1 [facility] (ZETIA) 10 4-18 tablet by [facility] mg tablet 00:00: mouth [place] 00 the Medical morning. Branch ezetimibe 2023-0 Yes [id number] 10mg Take 1 [facility] (ZETIA) 10 4-18 tablet by [facility] mg tablet 00:00: mouth [place] 00 the Medical morning. Branch ezetimibe 3-0 Yes [id number] 10mg Take 1 [facility] (ZETIA) 10 4-18 tablet by [facility] mg tablet 00:00: mouth [place] 00 the Medical morning. Branch ezetimibe 3-0 Yes [id number] 10mg Take 1 [facility] (ZETIA) 10 4-18 tablet by [facility] of mg tablet 00:00: mouth [place] 00 the Medical morning. Branch ezetimibe 2023-0 Yes [id number] 10mg Take 1 [facility] (ZETIA) 10 4-18 tablet by [facility] of mg tablet 00:00: mouth [place] 00 the Medical morning. Branch ezetimibe 2023-0 Yes [id number] 10mg Take 1 [facility] (ZETIA) 10 4-18 tablet by [facility] of mg tablet 00:00: mouth [place] 00 the Medical morning. Branch ezetimibe 2023-0 Yes [id number] 10mg Take 1 [facility] (ZETIA) 10 4-18 tablet by [facility] of mg tablet 00:00: mouth [place] 00 the Medical morning. Branch ezetimibe 2023-0 Yes [id number] 10mg Take 1 [facility] (ZETIA) 10 4-18 tablet by [facility] of mg tablet 00:00: mouth [place] 00 the Medical morning. Branch ezetimibe 2023-0 Yes [id number] 10mg Take 1 [facility] (ZETIA) 10 4-18 tablet by [facility] of mg tablet 00:00: mouth [place] 00 the Medical morning. Branch ezetimibe 2023-0 Yes [id number] 10mg Take 1 [facility] (ZETIA) 10 4-18 tablet by [facility] of mg tablet 00:00: mouth [place] 00 the Medical morning. Branch ezetimibe 2023-0 Yes [id number] 10mg Take 1 [facility] (ZETIA) 10 4-18 tablet by [facility] of mg tablet 00:00: mouth [place] 00 the Medical morning. Branch ezetimibe 2023-0 Yes [id number] 10mg Take 1 [facility] (ZETIA) 10 4-18 tablet by [facility] of mg tablet 00:00: mouth [place] 00 the Medical morning. Branch ezetimibe 3-0 Yes [id number] 10mg Take 1 [facility] (ZETIA) 10 4-18 tablet by [facility] of mg tablet 00:00: mouth [place] 00 the Medical morning. Branch ezetimibe 3-0 Yes [id number] 10mg Take 1 [facility] (ZETIA) 10 4-18 tablet by [facility] mg tablet 00:00: mouth [place] 00 the Medical morning. Branch ezetimibe 2023-0 Yes [id number] 10mg Take 1 [facility] (ZETIA) 10 4-18 tablet by [facility] mg tablet 00:00: mouth [place] 00 the Medical morning. Branch ezetimibe 2023-0 Yes [id number] 10mg Take 1 [facility] (ZETIA) 10 4-18 tablet by [facility] of mg tablet 00:00: mouth [place] 00 the Medical morning. Branch ezetimibe 2023-0 Yes [id number] 10mg Take 1 [facility] (ZETIA) 10 4-18 tablet by [facility] of mg tablet 00:00: mouth [place] 00 the Medical morning. Branch ezetimibe 2023-0 Yes [id number] 10mg Take 1 [facility] (ZETIA) 10 4-18 tablet by [facility] of mg tablet 00:00: mouth [place] 00 the Medical morning. Branch ezetimibe 2023-0 Yes [id number] 10mg Take 1 [facility] (ZETIA) 10 4-18 tablet by [facility] of mg tablet 00:00: mouth [place] 00 the Medical morning. Branch ezetimibe 2023-0 Yes [id number] 10mg Take 1 [facility] (ZETIA) 10 4-18 tablet by [facility] of mg tablet 00:00: mouth [place] 00 the Medical morning. Branch ezetimibe 2023-0 Yes [id number] 10mg Take 1 [facility] (ZETIA) 10 4-18 tablet by [facility] of mg tablet 00:00: mouth [place] 00 the Medical morning. Branch ezetimibe 2023-0 Yes [id number] 10mg Take 1 [facility] (ZETIA) 10 4-18 tablet by [facility] of mg tablet 00:00: mouth [place] 00 the Medical morning. Branch ezetimibe 3-0 Yes [id number] 10mg Take 1 [facility] (ZETIA) 10 4-18 tablet by [facility] of mg tablet 00:00: mouth [place] 00 the Medical morning. Branch ezetimibe 3-0 Yes [id number] 10mg Take 1 [facility] (ZETIA) 10 4-18 tablet by [facility] of mg tablet 00:00: mouth [place] 00 the Medical morning. Branch ezetimibe 2023-0 Yes [id number] 10mg Take 1 [facility] (ZETIA) 10 4-18 tablet by [facility] of mg tablet 00:00: mouth [place] 00 the Medical morning. Branch ezetimibe 2023-0 Yes [id number] 10mg Take 1 [facility] (ZETIA) 10 4-18 tablet by [facility] of mg tablet 00:00: mouth [place] 00 the Medical morning. Branch ezetimibe 2023-0 Yes [id number] 10mg Take 1 [facility] (ZETIA) 10 4-18 tablet by [facility] of mg tablet 00:00: mouth [place] 00 the Medical morning. Branch ezetimibe 2023-0 Yes [id number] 10mg Take 1 [facility] (ZETIA) 10 4-18 tablet by [facility] of mg tablet 00:00: mouth [place] 00 the Medical morning. Branch ezetimibe 2023-0 Yes [id number] 10mg Take 1 [facility] (ZETIA) 10 4-18 tablet by [facility] of mg tablet 00:00: mouth [place] 00 the Medical morning. Branch ezetimibe 2023-0 Yes [id number] 10mg Take 1 [facility] nivers (ZETIA) 10 4-18 tablet by [facility] of mg tablet 00:00: mouth [place] 00 the Medical morning. Branch ezetimibe 2023-0 Yes [id number] 10mg Take 1 [facility]ivers (ZETIA) 10 4-18 tablet by [facility] of mg tablet 00:00: mouth [place] 00 the Medical morning. Branch ezetimibe 2023-0 Yes [id number] 10mg Take 1 [facility] (ZETIA) 10 4-18 tablet by [facility] of mg tablet 00:00: mouth [place] 00 the Medical morning. Branch ezetimibe 3-0 Yes [id number] 10mg Take 1 [facility] (ZETIA) 10 4-18 tablet by [facility] of mg tablet 00:00: mouth [place] 00 the Medical morning. Branch ezetimibe 3-0 Yes [id number] 10mg Take 1 [facility] (ZETIA) 10 4-18 tablet by [facility] of mg tablet 00:00: mouth [place] 00 the Medical morning. Branch ezetimibe 2023-0 Yes [id number] 10mg Take 1 [facility]ivers (ZETIA) 10 4-18 tablet by [facility] of mg tablet 00:00: mouth [place] 00 the Medical morning. Branch ezetimibe 2023-0 Yes [id number] 10mg Take 1 [facility] (ZETIA) 10 4-18 tablet by [facility] of mg tablet 00:00: mouth [place] 00 the Medical morning. Branch ezetimibe 2023-0 Yes [id number] 10mg Take 1 [facility]ivers (ZETIA) 10 4-18 tablet by [facility] of mg tablet 00:00: mouth [place] 00 the Medical morning. Branch ezetimibe 2023-0 Yes [id number] 10mg Take 1 [facility]ivers (ZETIA) 10 4-18 tablet by [facility] of mg tablet 00:00: mouth [place] 00 the Medical morning. Branch ezetimibe 2023-0 Yes [id number] 10mg Take 1 [facility]ivers (ZETIA) 10 4-18 tablet by [facility] of mg tablet 00:00: mouth [place] 00 the Medical morning. Branch ezetimibe 2023-0 Yes [id number] 10mg Take 1 [facility] nivers (ZETIA) 10 4-18 tablet by [facility] of mg tablet 00:00: mouth [place] 00 the Medical morning. Branch ezetimibe 2023-0 Yes [id number] 10mg Take 1 [facility]ivers (ZETIA) 10 4-18 tablet by [facility] of mg tablet 00:00: mouth [place] 00 the Medical morning. Branch ezetimibe 2023-0 Yes [id number] 10mg Take 1 [facility] nivers (ZETIA) 10 4-18 tablet by [facility]y of mg tablet 00:00: mouth [place] 00 the Medical morning. Branch ezetimibe 3-0 Yes [id number] 10mg Take 1 [facility] nivers (ZETIA) 10 4-18 tablet by [facility] of mg tablet 00:00: mouth [place] 00 the Medical morning. Branch ezetimibe 3-0 Yes [id number] 10mg Take 1 [facility] nivers (ZETIA) 10 4-18 tablet by ity of mg tablet 00:00: mouth [place] 00 the Medical morning. Branch ezetimibe 2023-0 Yes [id number] 10mg Take 1 [facility] nivers (ZETIA) 10 4-18 tablet by [facility]y of mg tablet 00:00: mouth [place] 00 the Medical morning. Branch ezetimibe 2023-0 Yes [id number] 10mg Take 1 [facility]ivers (ZETIA) 10 4-18 tablet by [facility]y of mg tablet 00:00: mouth [place] 00 the Medical morning. Branch ezetimibe 2023-0 Yes [id number] 10mg Take 1 [facility]ivers (ZETIA) 10 4-18 tablet by [facility]y of mg tablet 00:00: mouth [place] 00 the Medical morning. Branch ezetimibe 2023-0 Yes [id number] 10mg Take 1 [facility]ivers (ZETIA) 10 4-18 tablet by [facility]y of mg tablet 00:00: mouth [place] 00 the Medical morning. Branch ezetimibe 2023-0 Yes [id number] 10mg Take 1 [facility] nivers (ZETIA) 10 4-18 tablet by [facility]y of mg tablet 00:00: mouth [place] 00 the Medical morning. Branch ezetimibe 2023-0 Yes [id number] 10mg Take 1 [facility] nivers (ZETIA) 10 4-18 tablet by [facility]y of mg tablet 00:00: mouth [place] 00 the Medical morning. Branch ezetimibe 2023-0 Yes [id number] 10mg Take 1 U nivers (ZETIA) 10 4-18 tablet by [facility]y of mg tablet 00:00: mouth [place] 00 the Medical morning. Branch ezetimibe 2023-0 Yes [id number] 10mg Take 1 U nivers (ZETIA) 10 4-18 tablet by [facility]y of mg tablet 00:00: mouth [place] 00 the Medical morning. Branch ezetimibe 3-0 Yes [id number] 10mg Take 1 [facility]ivers (ZETIA) 10 4-18 tablet by [facility]y of mg tablet 00:00: mouth [place] 00 the Medical morning. Branch ezetimibe 3-0 Yes [id number] 10mg Take 1 [facility] nivers (ZETIA) 10 4-18 tablet by [facility]y of mg tablet 00:00: mouth [place] 00 the Medical morning. Branch ezetimibe 2023-0 Yes [id number] 10mg Take 1 [facility] nivers (ZETIA) 10 4-18 tablet by [facility] of mg tablet 00:00: mouth [place] 00 the Medical morning. Branch ezetimibe 2023-0 Yes [id number] 10mg Take 1 [facility] nivers (ZETIA) 10 4-18 tablet by [facility] of mg tablet 00:00: mouth [place] 00 the Medical morning. Branch ezetimibe 2023-0 Yes [id number] 10mg Take 1 [facility]ivers (ZETIA) 10 4-18 tablet by [facility] of mg tablet 00:00: mouth [place] 00 the Medical morning. Branch ezetimibe 2023-0 Yes [id number] 10mg Take 1 [facility] nivers (ZETIA) 10 4-18 tablet by [facility] of mg tablet 00:00: mouth [place] 00 the Medical morning. Branch ezetimibe 3-0 Yes [id number] 10mg Take 1 [facility] nivers (ZETIA) 10 4-18 tablet by [facility] of mg tablet 00:00: mouth [place] 00 the Medical morning. Branch ezetimibe 3-0 Yes [id number] 10mg Take 1 [facility] nivers (ZETIA) 10 4-18 tablet by [facility] of mg tablet 00:00: mouth [place] 00 the Medical morning. Branch ezetimibe 3-0 Yes [id number] 10mg Take 1 [facility] nivers (ZETIA) 10 4-18 tablet by [facility] of mg tablet 00:00: mouth [place] 00 the Medical morning. [place] ezetimibe 3-0 Yes [id number] 10mg Take 1 [facility] nivers (ZETIA) 10 4-18 tablet by [facility] of mg tablet 00:00: mouth [place] 00 the Medical morning. [place] ezetimibe 2022-0 Yes [id number] 10mg Take 1 [facility] nivers (ZETIA) 10 4-18 tablet by [facility] of mg tablet 00:00: mouth in [place] 00 the Medical morning. Branch ezetimibe 3-0 Yes [id number] 10mg Take 1 [facility] nivers (ZETIA) 10 4-18 tablet by [facility] of mg tablet 00:00: mouth [place] 00 the Medical morning. [place] ezetimibe 3-0 Yes [id number] 10mg Take 1 [facility] nivers (ZETIA) 10 4-18 tablet by [facility] of mg tablet 00:00: mouth in [place] 00 the Medical morning. [place] ezetimibe 3-0 2023- No [id number] 10mg Take 1 [facility] (ZETIA) 10 4-18 -29 tablet by ity of mg tablet 00:00: 00:00 mouth in [place] 00 :00 the Medical morning. [place] alendronate 2022-0 Yes 70mg 70 mg, Univ ers (FOSAMAX) 3- Oral, ity of tablet 70 06:00: QWEEKLY, [place] mg 00 First dose Medical on Sat Branch 06/13/22 at 0000, Until Discontinu ed, Routine magnesium 2022-0 2022- No 400mg 400 mg, Uni vers oxide 06-12 Oral, ity of (MAG-OX 14:45: 14:19 ONCE, 1 [place] 400) tablet 00 :00 dose, On Medi tyrone 400 mg Sat Branch 06/12/22 at 0845, Routine HYDROcodone 0 [...] 35 Medical tablet Branch NaCl 0.9% Yes [id number] 250mL at 20 U nivers (NS) IV 2-27 mL/hr, IV [facility] of infusion 16:15: Infusion, [place] 250 mL 00 CONTINUOUS Medical , Starting Branch on [facility] 06/11/22 at 1015, Until Discontinu ed, Routine&lt ;br>KVO
lidocaine 2022- No [id number] 15mL 15 mL, Univers 2% viscous 06-11 9107 Oral, ity of (LIDOCAINE 16:15: 16:15 ONCE, 1 [place] VISCOUS) 2 00 :00 dose, On Medic al % solution [facility] 15 mL 06/11/22 at 1015, Routine FENTanyl PF 2022- No [id number] 50ug 50 mcg, Univers (SUBLIMAZE 06-11 9107 Slow IV ity o f (PF)) 16:15: 16:15 Push, [place] injection 00 :00 ONCE, 1 Medical 50 mcg dose, On Branch [facility] 06/11/22 at 1015, Routine midazolam 2022- No [id number] 1mg 1 mg, IV Univers (VERSED) 06-11 9107 Push, ity of injection 1 16:15: 16:15 ONCE, 1 [place] mg 00 :00 dose, On Medical [facility] 06/11/22 at 1015, Routine warfarin 1 Yes [id number] 2mg Take 2 [facility] mg tablet 2 tablets by ity of 00:00: mouth [place] 00 every Medical evening. Branch Alternate take 1mg x3 days, then 2mg x 4 days warfarin 1 Yes [id number] 2mg Take 2 [facility] mg tablet 2-27 tablets by ity of 00:00: mouth [place] 00 every Medical evening. Branch Alternate take 1mg x3 days, then 2mg x 4 days warfarin 1 2022-0 Yes [id number] 2mg Take 2 [facility] mg tablet 2-27 tablets by ity of 00:00: mouth [place] 00 every Medical evening. Branch Alternate take 1mg x3 days, then 2mg x 4 days warfarin 1 2022-0 Yes [id number] 2mg Take 2 [facility] mg tablet 2-27 tablets by ity of 00:00: mouth [place] 00 every Medical evening. Branch Alternate take 1mg x3 days, then 2mg x 4 days warfarin 1 2022-0 Yes [id number] 2mg Take 2 [facility] mg tablet 2-27 tablets by ity of 00:00: mouth [place] 00 every Medical evening. Branch Alternate take 1mg x3 days, then 2mg x 4 days warfarin 1 2022-0 Yes [id number] 2mg Take 2 [facility] mg tablet 2-27 tablets by ity of 00:00: mouth [place] 00 every Medical evening. Branch Alternate take 1mg x3 days, then 2mg x 4 days warfarin 0 Yes [id number] 2mg Take 2 [facility] mg tablet 2-27 tablets by ity of 00:00: mouth [place] 00 every Medical evening. Branch Alternate take 1mg x3 days, then 2mg x 4 days warfarin 1 0 Yes [id number] 2mg Take 2 [facility] mg tablet 2-27 tablets by ity of 00:00: mouth [place] 00 every Medical evening. Branch Alternate take 1mg x3 days, then 2mg x 4 days warfarin 1 2022-0 Yes [id number] 2mg Take 2 [facility] mg tablet 2-27 tablets by ity of 00:00: mouth [place] 00 every Medical evening. Branch Alternate take 1mg x3 days, then 2mg x 4 days warfarin 1 2022-0 Yes [id number] 2mg Take 2 [facility] mg tablet 2-27 tablets by ity of 00:00: mouth [place] 00 every Medical evening. Branch Alternate take 1mg x3 days, then 2mg x 4 days warfarin 1 2022-0 Yes [id number] 2mg Take 2 [facility] mg tablet 2-27 tablets by ity of 00:00: mouth [place] 00 every Medical evening. Branch Alternate take 1mg x3 days, then 2mg x 4 days warfarin 1 2022-0 Yes [id number] 2mg Take 2 [facility] mg tablet 2-27 tablets by ity of 00:00: mouth [place] 00 every Medical evening. Branch Alternate take 1mg x3 days, then 2mg x 4 days warfarin 1 0 Yes [id number] 2mg Take 2 [facility] mg tablet 2-27 tablets by ity of 00:00: mouth [place] 00 every Medical evening. Branch Alternate take 1mg x3 days, then 2mg x 4 days warfarin 1 2022-0 Yes [id number] 2mg Take 2 [facility] mg tablet 2-27 tablets by ity of 00:00: mouth [place] 00 every Medical evening. Branch Alternate take 1mg x3 days, then 2mg x 4 days warfarin 1 2022-0 Yes [id number] 2mg Take 2 [facility] mg tablet 2-27 tablets by ity of 00:00: mouth [place] 00 every Medical evening. Branch Alternate take 1mg x3 days, then 2mg x 4 days warfarin 0 Yes [id number] 2mg Take 2 [facility] mg tablet 2-27 tablets by ity of 00:00: mouth [place] 00 every Medical evening. Branch Alternate take 1mg x3 days, then 2mg x 4 days warfarin 2022-0 Yes [id number] 2mg Take 2 [facility] mg tablet 2-27 tablets by ity of 00:00: mouth [place] 00 every Medical evening. Branch Alternate take 1mg x3 days, then 2mg x 4 days warfarin 1 2022-0 Yes [id number] 2mg Take 2 [facility] mg tablet 2-27 tablets by ity of 00:00: mouth [place] 00 every Medical evening. Branch Alternate take 1mg x3 days, then 2mg x 4 days warfarin 1 2022-0 Yes [id number] 2mg Take 2 [facility] mg tablet 2-27 tablets by ity of 00:00: mouth [place] 00 every Medical evening. Branch Alternate take 1mg x3 days, then 2mg x 4 days warfarin 1 2022-0 Yes [id number] 2mg Take 2 [facility] mg tablet 2-27 tablets by ity of 00:00: mouth [place] 00 every Medical evening. Branch Alternate take 1mg x3 days, then 2mg x 4 days warfarin 1 2022-0 Yes [id number] 2mg Take 2 [facility] mg tablet 2-27 tablets by ity of 00:00: mouth [place] 00 every Medical evening. Branch Alternate take 1mg x3 days, then 2mg x 4 days warfarin 1 2022-0 Yes [id number] 2mg Take 2 [facility] mg tablet 2-27 tablets by ity of 00:00: mouth [place] 00 every Medical evening. Branch Alternate take 1mg x3 days, then 2mg x 4 days warfarin 2022-0 Yes [id number] 2mg Take 2 [facility] mg tablet 2-27 tablets by ity of 00:00: mouth [place] 00 every Medical evening. Branch Alternate take 1mg x3 days, then 2mg x 4 days warfarin 1 2022-0 Yes [id number] 2mg Take 2 [facility] mg tablet 2-27 tablets by ity of 00:00: mouth [place] 00 every Medical evening. Branch Alternate take 1mg x3 days, then 2mg x 4 days warfarin 1 2022-0 Yes [id number] 2mg Take 2 [facility] mg tablet 2-27 tablets by ity of 00:00: mouth [place] 00 every Medical evening. Branch Alternate take 1mg x3 days, then 2mg x 4 days warfarin 1 0 Yes [id number] 2mg Take 2 [facility] mg tablet 2-27 tablets by ity of 00:00: mouth [place] 00 every Medical evening. Branch Alternate take 1mg x3 days, then 2mg x 4 days warfarin 2022-0 Yes [id number] 2mg Take 2 [facility] mg tablet 2-27 tablets by ity of 00:00: mouth [place] 00 every Medical evening. Branch Alternate take 1mg x3 days, then 2mg x 4 days warfarin 0 Yes [id number] 2mg Take 2 [facility] mg tablet 2-27 tablets by ity of 00:00: mouth [place] 00 every Medical evening. Branch Alternate take 1mg x3 days, then 2mg x 4 days warfarin 1 0 Yes [id number] 2mg Take 2 Univers mg tablet 2-27 tablets by ity of 00:00: mouth [place] 00 every Medical evening. Branch Alternate take 1mg x3 days, then 2mg x 4 days warfarin 1 2022-0 Yes [id number] 2mg Take 2 [facility] mg tablet 2-27 tablets by ity of 00:00: mouth [place] 00 every Medical evening. Branch Alternate take 1mg x3 days, then 2mg x 4 days warfarin 1 2022-0 Yes [id number] 2mg Take 2 [facility] mg tablet 2-27 tablets by ity of 00:00: mouth [place] 00 every Medical evening. Branch Alternate take 1mg x3 days, then 2mg x 4 days warfarin 1 2022-0 Yes [id number] 2mg Take 2 [facility] mg tablet 2-27 tablets by ity of 00:00: mouth [place] 00 every Medical evening. Branch Alternate take 1mg x3 days, then 2mg x 4 days warfarin 1 2022-0 Yes [id number] 2mg Take 2 [facility] mg tablet 2-27 tablets by ity of 00:00: mouth [place] 00 every Medical evening. Branch Alternate take 1mg x3 days, then 2mg x 4 days warfarin 1 2022-0 Yes [id number] 2mg Take 2 [facility] mg tablet 2-27 tablets by ity of 00:00: mouth [place] 00 every Medical evening. Branch Alternate take 1mg x3 days, then 2mg x 4 days warfarin 2022-0 Yes [id number] 2mg Take 2 [facility] mg tablet 2-27 tablets by ity of 00:00: mouth [place] 00 every Medical evening. Branch Alternate take 1mg x3 days, then 2mg x 4 days warfarin 2022-0 Yes [id number] 2mg Take 2 [facility] mg tablet 2-27 tablets by ity of 00:00: mouth [place] 00 every Medical evening. Branch Alternate take 1mg x3 days, then 2mg x 4 days warfarin 1 2022-0 Yes [id number] 2mg Take 2 [facility] mg tablet 2-27 tablets by ity of 00:00: mouth [place] 00 every Medical evening. Branch Alternate take 1mg x3 days, then 2mg x 4 days warfarin 1 2022-0 Yes [id number] 2mg Take 2 [facility] mg tablet 2-27 tablets by ity of 00:00: mouth [place] 00 every Medical evening. Branch Alternate take 1mg x3 days, then 2mg x 4 days warfarin 1 2022-0 Yes [id number] 2mg Take 2 [facility] mg tablet 2-27 tablets by ity of 00:00: mouth [place] 00 every Medical evening. Branch Alternate take 1mg x3 days, then 2mg x 4 days warfarin 1 2022-0 Yes [id number] 2mg Take 2 [facility] mg tablet 2-27 tablets by ity of 00:00: mouth [place] 00 every Medical evening. Branch Alternate take 1mg x3 days, then 2mg x 4 days warfarin 1 2022-0 Yes [id number] 2mg Take 2 [facility] mg tablet 06-11 tablets by ity of 00:00: [facility] 00 every Medical evening. Branch Alternate take 1mg x3 days, then 2mg x 4 days warfarin 2 2022-0 Yes Warfarin Uni vers mg tablet 06-11 Oral ity of 00:00: active [place] [facility] warfarin 2 2022-0 Yes Warfarin Uni vers mg tablet 06-11 Oral ity of 00:00: active [place] [facility] warfarin 2 2022-0 Yes Warfarin Uni vers mg tablet 06-11 Oral ity of 00:00: active [place] [facility] Branch warfarin 2 2022-0 Yes Warfarin Uni vers mg tablet 06-11 Oral ity of 00:00: active [place] [facility] Branch warfarin 2 2022-0 202- No Warfarin [facility] mg tablet 06-11 Oral ity of 00:00: 00:00 [facility] 00 :00 Medical Branch dofetilide 2022-0 2022- No 2 (two) Uni vers 125 mcg -09 01- times a ity of capsule 00:00: 00:00 day [place] 00 :00 Medical Branch dofetilide 2022-0 2022- No 2 (two) Uni vers 125 mcg 2-09 01- times a ity of capsule 00:00: 00:00 day [place] 00 :00 [facility] [place] [facility] warfarin 1 2022-0 2022- No [id number] 2mg Take 2 [facility] mg tablet 06-11- tablets by ity of 00:00: 00:00 [facility] 00 :00 every Medical evening. Branch Alternate take 1mg x3 days, then 2mg x 4 days warfarin 1 2022-0 2022- No [id number] 2mg Take 2 [facility] mg tablet 06-11- tablets by ity of 00:00: 00:00 [facility] 00 :00 every Medical evening. Branch Alternate take 1mg x3 days, then 2mg x 4 days dofetilide 2022-0 2022- No [id number] 250ug Take 1 [facility] 250 mcg 2-09-10 capsule by ity o f capsule 00:00: 04:59 mouth [place] 00 :00 every 12 Medical (twelve) Branch hours for 90 days. dofetilide 2022- No [id number] 250ug Take 1 [facility] 250 mcg 2-27 05-29 capsule by ity o f capsule 00:00: 04:59 mouth [place] 00 :00 every 12 Medical (twelve) Branch hours for 90 days. dofetilide 2022- No [id number] 250ug Take 1 [facility] 250 mcg 2-27 05-29 capsule by ity o f capsule 00:00: 04:59 mouth [place] 00 :00 every 12 Medical (twelve) Branch hours for 90 days. dofetilide 2022- No [id number] 250ug Take 1 [facility] 250 mcg 2-27 05-29 capsule by ity o f capsule 00:00: 04:59 mouth [place] 00 :00 every 12 Medical (twelve) Branch hours for 90 days. dofetilide 2022- No [id number] 250ug Take 1 [facility] 250 mcg 2-27 05-29 capsule by ity o f capsule 00:00: 04:59 mouth [place] 00 :00 every 12 Medical (twelve) Branch hours for 90 days. dofetilide 2022- No [id number] 250ug Take 1 [facility] 250 mcg 2-27 05-29 capsule by ity o f capsule 00:00: 04:59 mouth [place] 00 :00 every 12 Medical (twelve) Branch hours for 90 days. dofetilide 2022- No [id number] 250ug Take 1 [facility] 250 mcg 2-27 05-29 capsule by ity o f capsule 00:00: 04:59 mouth [place] 00 :00 every 12 Medical (twelve) Branch hours for 90 days. dofetilide 2022- No [id number] 250ug Take 1 [facility] 250 mcg 2-27 05-29 capsule by ity o f capsule 00:00: 04:59 mouth [place] 00 :00 every 12 Medical (twelve) Branch hours for 90 days. dofetilide 2022- No [id number] 250ug Take 1 [facility] 250 mcg 2-27 05-29 capsule by ity o f capsule 00:00: 04:59 mouth [place] 00 :00 every 12 Medical (twelve) Branch hours for 90 days. dofetilide 2022- No [id number] 250ug Take 1 [facility] 250 mcg 2-27 05-29 capsule by ity o f capsule 00:00: 04:59 mouth [place] 00 :00 every 12 Medical (twelve) Branch hours for 90 days. dofetilide 2022- No [id number] 250ug Take 1 [facility] 250 mcg 2-27 05-29 capsule by ity o f capsule 00:00: 04:59 mouth [place] 00 :00 every 12 Medical (twelve) Branch hours for 90 days. dofetilide 2022- No [id number] 250ug Take 1 [facility] 250 mcg 2-27 05-29 capsule by ity o f capsule 00:00: 04:59 mouth [place] 00 :00 every 12 Medical (twelve) Branch hours for 90 days. dofetilide 2022- No [id number] 250ug Take 1 [facility] 250 mcg 2-27 05-29 capsule by ity o f capsule 00:00: 04:59 mouth [place] 00 :00 every 12 Medical (twelve) Branch hours for 90 days. dofetilide 2022- No [id number] 250ug Take 1 [facility] 250 mcg 2-27 05-29 capsule by ity o f capsule 00:00: 04:59 mouth [place] 00 :00 every 12 Medical (twelve) Branch hours for 90 days. dofetilide 2022- No [id number] 250ug Take 1 [facility] 250 mcg 2-27 05-29 capsule by ity o f capsule 00:00: 04:59 mouth [place] 00 :00 every 12 Medical (twelve) Branch hours for 90 days. dofetilide 2022- No [id number] 250ug Take 1 [facility] 250 mcg 2-27 05-29 capsule by ity o f capsule 00:00: 04:59 mouth [place] 00 :00 every 12 Medical (twelve) Branch hours for 90 days. dofetilide 2022- No [id number] 250ug Take 1 [facility] 250 mcg 2-27 05-29 capsule by ity o f capsule 00:00: 04:59 mouth [place] 00 :00 every 12 Medical (twelve) Branch hours for 90 days. dofetilide 2022- No [id number] 250ug Take 1 [facility] 250 mcg 2-27 05-29 capsule by ity o f capsule 00:00: 04:59 mouth [place] 00 :00 every 12 Medical (twelve) Branch hours for 90 days. dofetilide 2022- No [id number] 250ug Take 1 [facility] 250 mcg 2-27 05-29 capsule by ity o f capsule 00:00: 04:59 mouth [place] 00 :00 every 12 Medical (twelve) Branch hours for 90 days. dofetilide 2022- No [id number] 250ug Take 1 [facility] 250 mcg 2-27 05-29 capsule by ity o f capsule 00:00: 04:59 mouth [place] 00 :00 every 12 Medical (twelve) Branch hours for 90 days. dofetilide 2022- No [id number] 250ug Take 1 [facility] 250 mcg 2-27 05-29 capsule by ity o f capsule 00:00: 04:59 mouth [place] 00 :00 every 12 Medical (twelve) Branch hours for 90 days. dofetilide 2022- No [id number] 250ug Take 1 [facility] 250 mcg 2-27 05-29 capsule by ity o f capsule 00:00: 04:59 mouth [place] 00 :00 every 12 Medical (twelve) Branch hours for 90 days. dofetilide 2022- No [id number] 250ug Take 1 [facility] 250 mcg 2-27 05-29 capsule by ity o f capsule 00:00: 04:59 mouth [place] 00 :00 every 12 Medical (twelve) Branch hours for 90 days. dofetilide 2022- No [id number] 250ug Take 1 [facility] 250 mcg 2-27 05-29 capsule by ity o f capsule 00:00: 04:59 mouth [place] 00 :00 every 12 Medical (twelve) Branch hours for 90 days. dofetilide 2022- No [id number] 250ug Take 1 [facility] 250 mcg 2-27 05-29 capsule by ity o f capsule 00:00: 04:59 mouth [place] 00 :00 every 12 Medical (twelve) Branch hours for 90 days. dofetilide 2022- No [id number] 250ug Take 1 [facility] 250 mcg 2-27 05-29 capsule by ity o f capsule 00:00: 04:59 mouth [place] 00 :00 every 12 Medical (twelve) Branch hours for 90 days. dofetilide 2022- No [id number] 250ug Take 1 [facility] 250 mcg 2-27 05-29 capsule by ity o f capsule 00:00: 04:59 mouth [place] 00 :00 every 12 Medical (twelve) Branch hours for 90 days. dofetilide 2022- No [id number] 250ug Take 1 [facility] 250 mcg 2-27 05-29 capsule by ity o f capsule 00:00: 04:59 mouth [place] 00 :00 every 12 Medical (twelve) Branch hours for 90 days. dofetilide 2022- No [id number] 250ug Take 1 [facility] 250 mcg 2-27 05-29 capsule by ity o f capsule 00:00: 04:59 mouth [place] 00 :00 every 12 Medical (twelve) Branch hours for 90 days. dofetilide 2022- No [id number] 250ug Take 1 [facility] 250 mcg 2-27 05-29 capsule by ity o f capsule 00:00: 04:59 mouth [place] 00 :00 every 12 Medical (twelve) Branch hours for 90 days. dofetilide 2022- No [id number] 250ug Take 1 [facility] 250 mcg 2-27 05-29 capsule by ity o f capsule 00:00: 04:59 mouth [place] 00 :00 every 12 Medical (twelve) Branch hours for 90 days. dofetilide 2022- No [id number] 250ug Take 1 [facility] 250 mcg 2-27 05-29 capsule by ity o f capsule 00:00: 04:59 mouth [place] 00 :00 every 12 Medical (twelve) Branch hours for 90 days. dofetilide 2022- No [id number] 250ug Take 1 Univers 250 mcg 2-27 05-29 capsule by ity o f capsule 00:00: 04:59 mouth [place] 00 :00 every 12 Medical (twelve) Branch hours for 90 days. dofetilide 2022- No [id number] 250ug Take 1 [facility] 250 mcg 2-27 05-29 capsule by ity o f capsule 00:00: 04:59 mouth [place] 00 :00 every 12 Medical (twelve) Branch hours for 90 days. dofetilide 2022- No [id number] 250ug Take 1 Univers 250 mcg 06-11-29 capsule by ity o f capsule 00:00: 04:59 mouth [place] 00 :00 every 12 Medical ([facility]) Branch hours for 90 days. enoxaparin 2022- No [id number] 40mg inject 0.4 Univers 40 mg/0.4 2-27 03-05 mL under ity o f mL 00:00: 05:59 the skin [place] injection 00 :00 in the [facility] [place] [facility] for 5 days. enoxaparin 2022- No [id number] 40mg inject 0.4 Univers 40 mg/0.4 2- 03-05 mL under ity o f mL 00:00: 05:59 the skin [place] injection 00 :00 in the [facility] [place] [facility] for 5 days. enoxaparin 2022- No [id number] 40mg inject 0.4 Univers 40 mg/0.4 2- 03-05 mL under ity o f mL 00:00: 05:59 the skin [place] injection 00 :00 in the [facility] for 5 days. enoxaparin 2022- No [id number] 40mg inject 0.4 Univers 40 mg/0.4 2-27 03-05 mL under ity o f mL 00:00: 05:59 the skin [place] injection 00 :00 in the [facility] [place] [facility] for 5 days. enoxaparin 2022- No [id number] 40mg inject 0.4 Univers 40 mg/0.4 2-27 03-05 mL under ity o f mL 00:00: 05:59 the skin [place] injection 00 :00 in the [facility] for 5 days. enoxaparin 2022- No [id number] 40mg inject 0.4 Univers 40 mg/0.4 2-27 03-05 mL under ity o f mL 00:00: 05:59 the skin [place] injection 00 :00 in the [facility] for 5 days. enoxaparin 2022- No [id number] 40mg inject 0.4 Univers 40 mg/0.4 2-27 03-05 mL under ity o f mL 00:00: 05:59 the skin [place] injection 00 :00 in the Medical morning Branch for 5 days. dofetilide 2022- No [id number] 250ug Take 1 [facility] 250 mcg 06-11 capsule by ity o f capsule 00:00: 05:59 mouth [place] 00 :00 every 12 Medical ([facility]) Branch hours for 2 days. warfarin 2 2022- No [id number] 2mg Take 1 [facility] mg tablet 06-11 tablet by ity of 00:00: 05:59 mouth [place] 00 :00 every Medical evening Branch for 2 days. dofetilide 2022- No [id number] 250ug Take 1 [facility] 250 mcg 06-11 capsule by ity o f capsule 00:00: 05:59 mouth [place] 00 :00 every 12 Medical ([facility]) Branch hours for 2 days. warfarin 2 2022- No [id number] 2mg Take 1 Univers mg tablet 06-11 tablet by ity of 00:00: 05:59 mouth [place] 00 :00 every Medical evening Branch for 2 days. warfarin 2 2022- No [id number] 2mg Take 1 [facility] mg tablet 06-11 tablet by ity of 00:00: 05:59 mouth [place] 00 :00 every Medical evening Branch for 2 days. warfarin 2 2022- No [id number] 2mg Take 1 [facility] mg tablet 06-11 tablet by ity of 00:00: 05:59 mouth [place] 00 :00 every Medical evening Branch for 2 days. warfarin 2 2022- No [id number] 2mg Take 1 [facility] mg tablet 06-11 tablet by ity of 00:00: 05:59 mouth [place] 00 :00 every Medical evening Branch for 2 days. warfarin 2 2022- No [id number] 2mg Take 1 [facility] mg tablet 06-11 tablet by ity of 00:00: 05:59 mouth [place] 00 :00 every Medical evening Branch for 2 days. warfarin 2 2022- No [id number] 2mg Take 1 [facility] mg tablet 06-11 tablet by ity of 00:00: 05:59 mouth [place] 00 :00 every Medical evening Branch for 2 days. enoxaparin 2022- No [id number] 40mg inject 0.4 Univers 40 mg/0.4 06-11- mL under ity o f mL 00:00: 05:59 the skin [place] injection 00 :00 in the [facility] for 2 days. enoxaparin 2022- No [id number] 40mg inject 0.4 Univers 40 mg/0.4 06-11- mL under ity o f mL 00:00: 05:59 the skin [place] injection 00 :00 in the [facility] [place] [facility] for 2 days. dofetilide 2022- No [id number] 250ug Take 1 [facility] 250 mcg 06-11 capsule by ity o f capsule 00:00: 05:59 mouth [place] 00 :00 every 12 [facility] hours for 2 days. enoxaparin 2022- No [id number] 40mg inject 0.4 Univers 40 mg/0.4 06-11 mL under ity o f mL 00:00: 05:59 the skin [place] injection 00 :00 in the [facility] for 2 days. dofetilide 2022- No [id number] 250ug Take 1 [facility] 250 mcg 06-11 capsule by ity o f capsule 00:00: 05:59 mouth [place] 00 :00 every 12 [facility] hours for 2 days. enoxaparin 2022- No [id number] 40mg inject 0.4 Univers 40 mg/0.4 06-11 mL under ity o f mL 00:00: 05:59 the skin [place] injection 00 :00 in the [facility] for 2 days. dofetilide 2022- No [id number] 250ug Take 1 [facility] 250 mcg 06-11 capsule by ity o f capsule 00:00: 05:59 mouth [place] 00 :00 every 12 [facility] hours for 2 days. enoxaparin 2022- No [id number] 40mg inject 0.4 Univers 40 mg/0.4 06-11- mL under ity o f mL 00:00: 05:59 the skin [place] injection 00 :00 in the [facility] for 2 days. dofetilide No [id number] 250ug Take 1 [facility] 250 mcg 06-11 capsule by ity o f capsule 00:00: 05:59 mouth [place] 00 :00 every 12 Medical (twelve) Branch hours for 2 days. enoxaparin No [id number] 40mg inject 0.4 Univers 40 mg/0.4 06-11 mL under ity o f mL 00:00: 05:59 the skin [place] injection 00 :00 in the Medical morning Branch for 2 days. dofetilide No [id number] 250ug Take 1 [facility] 250 mcg 06-11 capsule by ity o f capsule 00:00: 05:59 mouth [place] 00 :00 every 12 Medical (twelve) Branch hours for 2 days. enoxaparin No [id number] 40mg inject 0.4 Univers 40 mg/0.4 06-11 [...] dose, On 06/10/22 at 0345, Routine methocarbam 2023-0 Yes 500mg 500 mg, [facility] oL [...] Branch 1400, Until Discontinu ed, Routine acetaminoph 0 Yes 500mg 500 mg, [facility] en [...] dose, On 06/09/22 at 1030, Routine heparin 0 Yes 0U/h 0-2,350 Univers 25,000 2-25 Units/hr [...] INITIAL INFUSION RATE.&nbsp ; _ &nb sp;FOR [facility], AND [facility] ONLY &nbs p; - aPTT < [...] , Starting [place] mL vial) 12 on [facility] Medical 06/09/22 at Branch 1027, Until [...] 06/07/22 at 2000, Until Discontinu ed, Routine
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 Restricted medication : MARIIA CARDONA warfarin 2022- No 1.5mg 1.5 mg, Univ ers (COUMADIN) 06-07 Oral, ity of tablet 1.5 23:00: 13:52 [place]ILY AT [place] mg 00 :32 1700, Medical First dose Branch (after last modificati on) on [facility] 06/07/22 at 1700, Until Discontinu ed, [...] [place] mg 00 First dose Medical on [facility] Branch 06/07/22 at 0900, Until Discontinu [...] mg 00 :24 First dose Medical on [facility] Branch 06/07/22 at 0900, Until Discontinu ed, Routine HYDROcodone Yes 1{tbl} 1 tablet, Univers -acetaminop 06-07 Oral, ity of hen (NORCO) 14:58: Q6HPRN, Babak as 10-325 mg 30 Starting Medica l tablet 1 on [facility] Branch tablet 06/07/22 at 0858, Until Discontinu ed, Routine, Pain (scale 7-10), Pain (scale 4-6) gabapentin 2022- No 300mg 300 mg, [facility] (NEURONTIN) 06-07 Oral, ity of capsule 300 07:45: 07:14 ONCE, 1 [place] mg 00 :00 dose, On Medical [facility] Branch 06/07/22 at 0145, Routine KCL 2022- No 20meq 20 mEq, Univers (KLOR-CON 06-07 Oral, ity of M20) tablet 05:00: 06:48 ONCE, 1 [place] 20 mEq 00 :00 dose, On [facility] 06/06/22 at 2315, Routine magnesium 2022- No 2g 2 g, IV Univ ers sulfate in 06-07 Piggyback, it y of water 2 05:00: 08:15 Administer [place]ak as gram/50 mL 00 :00 over 60 Medica l (4 %) Minutes, Branch infusion 2 ONCE, 1 g dose, On [facility] 06/06/22 at 2315, Routine atorvastati Yes 80mg 80 mg, Univ ers n (LIPITOR) 06-07 Oral, QHS, it y of tablet 80 03:00: First dose [place] mg 00 on [facility] Medical 06/06/22 at Branch 2100, Until Discontinu ed, Routine dofetilide 2022- No 125ug 125 mcg, U nivers (TIKOSYN) 06-07 Oral, ity of capsule 125 02:00: 16:35 Q12H, [place] mcg 00 :11 First dose Medical on [facility] 06/06/22 at 2000, Until Discontinu ed, Routine
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 [place] 00 :00 Medical Branch furosemide 2023-0 2024- No 20mg Take 1 Univ ers 20 mg 2-13 -15 tablet by ity of tablet 00:00: 05:59 mouth. [place] 00 :00 Medical Branch furosemide 2023-0 2024- No 20mg Take 1 Univ ers 20 mg 2-13 -15 tablet by ity of tablet 00:00: 05:59 mouth. [place] 00 :00 Medical Branch furosemide 2023-0 2024- No 20mg Take 1 Univ ers 20 mg 2-13 -15 tablet by ity of tablet 00:00: 05:59 mouth. [place] 00 :00 Medical Branch furosemide 2023-0 2024- No 20mg QD Take [...] 00 :00 by mouth Center daily. furosemide 4- No 20mg QD Take 1 [facility] :[facility] by [facility] daily. furosemide 2022-0 2022- No 20mg Take 1 Univ ers 20 mg -13 - tablet by ity of tablet 00:00: 00:00 mouth. [place] 00 :00 [facility] [place] [facility] warfarin 3-0 Yes 1mg QD Take [address] [facility] (COUMADIN, 2-12 by mouth [facility]) 1 16:44: daily. Medi tyrone MG tablet 11 [facility] warfarin 3-0 Yes 1mg QD Take [address] [facility] (COUMADIN, 2-12 by mouth [facility]) 1 16:44: daily. Medi tyrone MG tablet 11 [facility] warfarin 3-0 Yes 1mg QD Take [address] [facility] (COUMADIN, 2-12 by mouth [facility]) 1 16:44: daily. Medi tyrone MG tablet 11 [facility] warfarin 3-0 Yes 1mg QD Take [address] [facility] (COUMADIN, 2-12 by mouth [facility]) 1 16:44: daily. Medi tyrone MG tablet 11 [facility] warfarin 3-0 Yes 1mg QD Take [address] [facility] (COUMADIN, 2-12 by mouth [facility]) 1 16:44: daily. Medi tyrone MG tablet 11 [facility] warfarin 3-0 Yes 1mg QD Take [address] [facility] (COUMADIN, 2-12 by mouth [facility]) 1 16:44: daily. Medi tyrone MG tablet 11 [facility] warfarin 2023-0 Yes 1mg QD Take [address] [facility] (COUMADIN, 2-12 by mouth [facility]) 1 16:44: daily. Medi tyrone MG tablet 11 [facility] warfarin 3-0 Yes 1mg QD Take [address] [facility] (COUMADIN, 2-12 by mouth [facility]) 1 16:44: daily. Medi tyrone MG tablet 11 [facility] warfarin 3-0 Yes 1mg QD Take [address] [facility] (COUMADIN, 2-12 by mouth [facility]) 1 16:44: daily. Medi tyrone MG tablet 11 [facility] warfarin 3-0 Yes 1mg QD Take [address] [facility] (COUMADIN, 2-12 by mouth [facility]) 1 16:44: daily. Medi tyrone MG tablet 11 [facility] warfarin 3-0 Yes 1mg QD Take [address] [facility] (COUMADIN, 2-12 by mouth [facility]) 1 16:44: daily. Medi tyrone MG tablet 11 [facility] warfarin 3-0 Yes 1mg QD Take [address] [facility] (COUMADIN, 2-12 by mouth [facility]) 1 16:44: daily. Medi tyrone MG tablet 11 [facility] warfarin 3-0 Yes 1mg QD Take [address] [facility] (COUMADIN, 2-12 by mouth [facility]) 1 16:44: daily. Medi tyrone MG tablet 11 [facility] warfarin 3-0 Yes 1mg QD Take [address] [facility] (COUMADIN, 2-12 by mouth [facility]) 1 16:44: daily. Medi tyrone MG tablet 11 [facility] warfarin 3-0 Yes 1mg QD Take [address] [facility] (COUMADIN, 2-12 by mouth [facility]) 1 16:44: daily. Medi tyrone MG tablet 11 [facility] warfarin 3-0 Yes 1mg QD Take [address] [facility] (COUMADIN, 2-12 by mouth [facility]) 1 16:44: daily. Medi tyrone MG tablet 11 [facility] warfarin 3-0 Yes 1mg QD Take [address] [facility] (COUMADIN, 2-12 by mouth [facility]) 1 16:44: daily. Medi tyrone MG tablet 11 [facility] amiodarone 2022-0 Yes Take 1 tab C [...] it y of mg tablet 00:00: 00:00 00 : Medical Branch metoprolol 2022-0 2022- No 1 tablet [facility] tartrate 25 05-27 with food it y of mg tablet 00:00: 00:00 [place] 00 : Medical [place] metoprolol 0 2022- No 1 tablet [facility] tartrate 25 05-27 with food it y of mg tablet 00:00: 00:00 [place] 00 :00 Medical Branch warfarin 0 Yes 1mg QD Take [address] [facility] (COUMADIN, 2-04 by mouth [facility]) 1 13:52: daily. Medi tyrone MG tablet 50 [facility] warfarin 0 Yes 1mg QD Take [address] [facility] (COUMADIN, 2-04 by mouth [facility]) 1 13:52: daily. Medi tyrone MG tablet 50 [facility] warfarin 0 Yes 1mg QD Take [address] [facility] (COUMADIN, 2-04 by mouth [facility]) 1 13:52: daily. Medi tyrone MG tablet 50 [facility] warfarin 0 Yes 1mg QD Take [address] [facility] (COUMADIN, 2-04 by mouth [facility]) 1 13:52: daily. Medi tyrone MG tablet 50 [facility] alendronate Yes Univer s 70 mg 1-26 ity of tablet 00:00: [facility] [place] [facility] zolpidem 10 0 Yes 1 tablet [facility] mg tablet 1-26 at bedtime ity of 00:00: as needed [facility] [place] [facility] alendronate 0 Yes Univer s 70 mg 1-26 ity of tablet 00:00: [facility] [place] [facility] zolpidem 10 0 Yes 1 tablet [facility] mg tablet 1-26 at bedtime ity of 00:00: as needed [facility] [place] [facility] alendronate 0 Yes Univer s 70 mg 1-26 ity of tablet 00:00: [place] [facility] zolpidem 10 0 Yes 1 tablet [facility] mg tablet 1-26 at bedtime ity of 00:00: as needed Medical Branch alendronate 2023-0 Yes Univer s 70 mg 1-26 ity of tablet 00:00: [place] [facility] zolpidem 10 2022-0 Yes 1 tablet [facility] mg tablet 1-26 at bedtime ity of 00:00: as needed Medical Branch alendronate 2022-0 Yes Univer s 70 mg 1-26 ity of tablet 00:00: [place] [facility] zolpidem 10 2022-0 Yes 1 tablet [facility] mg tablet 1-26 at bedtime ity of 00:00: as needed [place] [facility] alendronate 2022-0 Yes Univer s 70 mg 1-26 ity of tablet 00:00: [place] [facility] zolpidem 10 2022-0 Yes 1 tablet [facility] mg tablet 1-26 at bedtime ity of 00:00: as needed [place] [facility] alendronate 2022-0 Yes Univer s 70 mg 1-26 ity of tablet 00:00: [place] [id number] Medical Branch zolpidem 10 2022-0 Yes 1 tablet [facility] mg tablet 1-26 at bedtime ity of 00:00: as needed [place] [address] Medical Branch alendronate 2022-0 Yes Univer s 70 mg 1-26 ity of tablet 00:00: [place] [address] Medical Branch zolpidem 10 2022-0 Yes 1 tablet [facility] mg tablet 1-26 at bedtime ity of 00:00: as needed Medical Branch alendronate 2022-0 Yes Univer s 70 mg 1-26 ity of tablet 00:00: [place] [facility] zolpidem 10 2022-0 Yes 1 tablet [facility] mg tablet 1-26 at bedtime ity of 00:00: as needed [place] [address] Medical Branch alendronate 2022-0 Yes Univer s 70 mg 1-26 ity of tablet 00:00: [place] [address] Medical Branch zolpidem 10 2022-0 Yes 1 tablet [facility] mg tablet 1-26 at bedtime ity of 00:00: as needed [place] [address] Medical Branch alendronate 2022-0 Yes Univer s 70 mg 1-26 ity of tablet 00:00: [place] [address] Medical Branch zolpidem 10 2022-0 Yes 1 tablet [facility] mg tablet 1-26 at bedtime ity of 00:00: as needed [place] [facility] Branch alendronate 2022-0 Yes Univer s 70 mg 1-26 ity of tablet 00:00: [place] [facility] Branch zolpidem 10 2022-0 Yes 1 tablet [facility] mg tablet 1-26 at bedtime ity of 00:00: as needed [place] Medical Branch alendronate 2022-0 Yes Univer s 70 mg 1-26 ity of tablet 00:00: [place] Medical Branch zolpidem 10 2022-0 Yes 1 tablet [facility] mg tablet 1-26 at bedtime ity of 00:00: as needed [place] [facility] alendronate 2022-0 Yes Univer s 70 mg 1-26 ity of tablet 00:00: [place] [facility] zolpidem 10 2022-0 Yes 1 tablet [facility] mg tablet 1-26 at bedtime ity of 00:00: as needed [place] [facility] alendronate 2022-0 Yes Un[facility] s 70 mg 1-26 ity of tablet 00:00: [place] [facility] zolpidem 10 2022-0 Yes 1 tablet [facility] mg tablet 1-26 at bedtime ity of 00:00: as needed [place] [facility] alendronate 2022-0 Yes Un[facility] s 70 mg 1-26 ity of tablet 00:00: [place] [address] [facility] zolpidem 10 2022-0 Yes 1 tablet [facility] mg tablet 1-26 at bedtime ity of 00:00: as needed [place] [facility] alendronate 2022-0 Yes Univer s 70 mg 1-26 ity of tablet 00:00: [place] [facility] zolpidem 10 2022-0 Yes 1 tablet [facility] mg tablet 1-26 at bedtime ity of 00:00: as needed [place] [facility] alendronate 2022-0 Yes Un[facility] s 70 mg 1-26 ity of tablet 00:00: [place] [address] [facility] zolpidem 10 2022-0 Yes 1 tablet [facility] mg tablet 1-26 at bedtime ity of 00:00: as needed [place] [facility] alendronate 2022-0 Yes Un[facility] s 70 mg 1-26 ity of tablet 00:00: [place] [facility] zolpidem 10 2022-0 Yes 1 [...] 70 mg 1-26 ity of tablet 00:00: [place] [facility] zolpidem 10 2022-0 Yes 1 tablet [facility] mg tablet 1-26 at bedtime ity of 00:00: as needed [facility] Branch alendronate 2022-0 Yes Un[facility] s 70 mg 1-26 ity of tablet 00:00: [place] [facility] zolpidem 10 2022-0 Yes 1 tablet [facility] mg tablet 1-26 at bedtime ity of 00:00: as needed [facility] alendronate 2022-0 Yes Un[facility] s 70 mg 1-26 ity of tablet 00:00: [place] [facility] zolpidem 10 2022-0 Yes 1 tablet [facility] mg tablet 1-26 at bedtime ity of 00:00: as needed [place] [facility] alendronate 2022-0 Yes Un[facility] 70 mg 1-26 ity of tablet 00:00: [place] [facility] zolpidem 10 2022-0 Yes 1 tablet [facility] mg tablet 1-26 at bedtime ity of 00:00: as needed Medical Branch alendronate 2022-0 Yes Un[facility] s 70 mg 1-26 ity of tablet 00:00: [place] [facility] zolpidem 10 2022-0 Yes 1 tablet [facility] mg tablet 1-26 at bedtime ity of 00:00: as needed Medical Branch alendronate 2022-0 Yes Un[facility] s 70 mg 1-26 ity of tablet 00:00: [place] [address] [facility] zolpidem 10 2022-0 Yes 1 tablet [facility] mg tablet 1-26 at bedtime ity of 00:00: as needed Medical Branch alendronate 2022-0 Yes Un[facility] s 70 mg 1-26 ity of tablet 00:00: [place] [address] [facility] zolpidem 10 2022-0 Yes 1 tablet [facility] mg tablet 1-26 at bedtime ity of 00:00: as needed [place] [facility] alendronate 2022-0 Yes Un[facility] s 70 mg 1-26 ity of tablet 00:00: [place] [facility] zolpidem 10 2022-0 Yes 1 tablet [facility] mg tablet 1-26 at bedtime ity of 00:00: as needed [place] [facility] alendronate 2022-0 Yes [facility] 70 mg 1-26 ity of tablet 00:00: [place] [address] [facility] zolpidem 10 2022-0 Yes 1 tablet [facility] mg tablet 1-26 at bedtime ity of 00:00: as needed [place] [facility] alendronate 2022-0 Yes Un[facility] 70 mg 1-26 ity of tablet 00:00: [place] [address] [facility] zolpidem 10 2022-0 Yes 1 tablet [facility] mg tablet 1-26 at bedtime ity of 00:00: as needed [place] [facility] alendronate 2022-0 Yes Un[facility] 70 mg 1-26 ity of tablet 00:00: [place] [address] [facility] zolpidem 10 2022-0 Yes 1 tablet [facility] mg tablet 1-26 at bedtime ity of 00:00: as needed [place] [facility] alendronate 2022-0 Yes [facility] 70 mg 1-26 ity of tablet 00:00: [place] [address] [facility] zolpidem 10 2022-0 Yes 1 tablet [facility] mg tablet 1-26 at bedtime ity of 00:00: as needed [place] [facility] alendronate 2022-0 Yes [facility] 70 mg 1-26 ity of tablet 00:00: [place] [address] [facility] zolpidem 10 2022-0 Yes 1 tablet [facility] mg tablet 1-26 at bedtime ity of 00:00: as needed [place] [facility] alendronate 2022-0 Yes [facility] 70 mg 1-26 ity of tablet 00:00: [place] [address] [facility] zolpidem 10 2022-0 Yes 1 tablet [facility] mg tablet 1-26 at bedtime ity of 00:00: as needed [place] [address] [facility] alendronate 2022-0 Yes Un[facility] 70 mg 1-26 ity of tablet 00:00: [place] [facility] zolpidem 10 2022-0 Yes 1 tablet [facility] mg tablet 1-26 at bedtime ity of 00:00: as needed [facility] Branch alendronate 2022-0 Yes Un[facility] s 70 mg 1-26 ity of tablet 00:00: [place] [facility] zolpidem 10 2022-0 Yes 1 tablet [facility] mg tablet 1-26 at bedtime ity of 00:00: as needed [facility] alendronate 2022-0 Yes Un[facility] 70 mg 1-26 ity of tablet 00:00: [place] [facility] zolpidem 10 2022-0 Yes 1 tablet [facility] mg tablet 1-26 at bedtime ity of 00:00: as needed [facility] alendronate 2022-0 Yes Un[facility] s 70 mg 1-26 ity of tablet 00:00: [place] [facility] zolpidem 10 2022-0 Yes 1 tablet [facility] mg tablet 1-26 at bedtime ity of 00:00: as needed [place] [facility] alendronate 2022-0 Yes Un[facility] 70 mg 1-26 ity of tablet 00:00: [place] [facility] zolpidem 10 2022-0 Yes 1 tablet [facility] mg tablet 1-26 at bedtime ity of 00:00: as needed [place] [facility] alendronate 2022-0 Yes Un[facility] 70 mg 1-26 ity of tablet 00:00: [place] [facility] zolpidem 10 2022-0 Yes 1 tablet [facility] mg tablet 1-26 at bedtime ity of 00:00: as needed [facility] alendronate 2022-0 Yes [facility] 70 mg 1-26 ity of tablet 00:00: [place] [facility] zolpidem 10 2022-0 Yes 1 tablet [facility] mg tablet 1-26 at bedtime ity of 00:00: as needed [facility] Branch alendronate 2022-0 Yes Un[facility] s 70 mg 1-26 ity of tablet 00:00: [place] [address] [facility] zolpidem 10 2022-0 Yes 1 tablet [facility] mg tablet 1-26 at bedtime ity of 00:00: as needed [place] [facility] alendronate 2023-0 Yes [facility] 70 mg 1-26 ity of tablet 00:00: [place] [facility] zolpidem 10 2022-0 Yes 1 tablet [facility] mg tablet 1-26 at bedtime ity of 00:00: as needed [facility] alendronate 0 Yes Un[facility] 70 mg 1-26 ity of tablet 00:00: [place] [facility] zolpidem 10 2022-0 Yes 1 tablet [facility] mg tablet 1-26 at bedtime ity of 00:00: as needed [place] [facility] alendronate 2022-0 Yes [facility] 70 mg 1-26 ity of tablet 00:00: [place] [facility] zolpidem 10 2022-0 Yes 1 tablet [facility] mg tablet 1-26 at bedtime ity of 00:00: as needed [place] [facility] alendronate 2022-0 Yes [facility] 70 mg 1-26 ity of tablet 00:00: [place] [address] [facility] zolpidem 10 2022-0 Yes 1 tablet [facility] mg tablet 1-26 at bedtime ity of 00:00: as needed [place] [facility] alendronate 2022-0 Yes [facility] 70 mg 1-26 ity of tablet 00:00: [place] [address] [facility] zolpidem 10 2022-0 Yes 1 tablet [facility] mg tablet 1-26 at bedtime ity of 00:00: as needed [place] [facility] alendronate 2022-0 Yes [facility] 70 mg 1-26 ity of tablet 00:00: [place] [facility] zolpidem 10 2022-0 Yes 1 tablet [facility] mg tablet 1-26 at bedtime ity of 00:00: as needed [facility] alendronate 2022-0 Yes [facility] 70 mg 1-26 ity of tablet 00:00: [place] [address] [facility] zolpidem 10 2022-0 Yes 1 tablet [facility] mg tablet 1-26 at bedtime ity of 00:00: as needed [place] [facility] alendronate 2022-0 Yes [facility] 70 mg 1-26 ity of tablet 00:00: [place] [address] [facility] zolpidem 10 2022-0 Yes 1 tablet [facility] mg tablet 1-26 at bedtime ity of 00:00: as needed [place] [address] [facility] alendronate 2022-0 Yes Un[facility] 70 mg 1-26 ity of tablet 00:00: [place] [facility] zolpidem 10 2022-0 Yes 1 tablet [facility] mg tablet 1-26 at bedtime ity of 00:00: as needed [facility] alendronate 2022-0 Yes Un[facility] 70 mg 1-26 ity of tablet 00:00: [place] [facility] zolpidem 10 2022-0 Yes 1 tablet [facility] mg tablet 1-26 at bedtime ity of 00:00: as needed [place] [facility] alendronate 2022-0 Yes [facility] 70 mg 1-26 ity of tablet 00:00: [place] [facility] zolpidem 10 2022-0 Yes 1 tablet [facility] mg tablet 1-26 at bedtime ity of 00:00: as needed [place] [facility] alendronate 2022-0 Yes Un[facility] 70 mg 1-26 ity of tablet 00:00: [place] [facility] zolpidem 10 2022-0 Yes 1 tablet [facility] mg tablet 1-26 at bedtime ity of 00:00: as needed [place] [address] [facility] alendronate 2022-0 Yes Un[facility] 70 mg 1-26 ity of tablet 00:00: [place] [address] [facility] zolpidem 10 2022-0 Yes 1 tablet [facility] mg tablet 1-26 at bedtime ity of 00:00: as needed [place] [facility] alendronate 2022-0 Yes [facility] 70 mg 1-26 ity of tablet 00:00: [place] [facility] zolpidem 10 2022-0 Yes 1 tablet [facility] mg tablet 1-26 at bedtime ity of 00:00: as needed [place] [facility] alendronate 2022-0 Yes [facility] 70 mg 1-26 ity of tablet 00:00: [place] [facility] zolpidem 10 2022-0 Yes 1 tablet [facility] mg tablet 1-26 at bedtime ity of 00:00: as needed [place] [facility] alendronate 2022-0 Yes [facility] 70 mg 1-26 ity of tablet 00:00: [place] [facility] zolpidem 10 2022-0 Yes 1 tablet [facility] mg tablet 1-26 at bedtime ity of 00:00: as needed [facility] alendronate 2022-0 Yes Un[facility] s 70 mg 1-26 ity of tablet 00:00: [place] [facility] zolpidem 10 2022-0 Yes 1 tablet [facility] mg tablet 1-26 at bedtime ity of 00:00: as needed [facility] alendronate 2022-0 Yes Un[facility] 70 mg 1-26 ity of tablet 00:00: [place] [facility] zolpidem 10 2022-0 Yes 1 tablet [facility] mg tablet 1-26 at bedtime ity of 00:00: as needed [place] [facility] alendronate 2022-0 Yes [facility] 70 mg 1-26 ity of tablet 00:00: [place] [facility] zolpidem 10 2022-0 Yes 1 tablet [facility] mg tablet 1-26 at bedtime ity of 00:00: as needed [place] [facility] alendronate 2022-0 Yes Un[facility] 70 mg 1-26 ity of tablet 00:00: [place] [facility] zolpidem 10 2022-0 Yes 1 tablet [facility] mg tablet 1-26 at bedtime ity of 00:00: as needed [place] [facility] alendronate 2022-0 Yes Un[facility] 70 mg 1-26 ity of tablet 00:00: [place] [facility] zolpidem 10 2022-0 Yes 1 tablet [facility] mg tablet 1-26 at bedtime ity of 00:00: as needed [facility] alendronate 2022-0 Yes Un[facility] 70 mg 1-26 ity of tablet 00:00: [place] [facility] zolpidem 10 2022-0 Yes 1 tablet [facility] mg tablet 1-26 at bedtime ity of 00:00: as needed [facility] alendronate 2022-0 Yes Un[facility] 70 mg 1-26 ity of tablet 00:00: [place] [facility] zolpidem 10 2022-0 Yes 1 tablet [facility] mg tablet 1-26 at bedtime ity of 00:00: as needed [place] [facility] alendronate 2022-0 Yes [facility] 70 mg 1-26 ity of tablet 00:00: [place] [facility] zolpidem 10 2022-0 Yes 1 tablet [facility] mg tablet 1-26 at bedtime ity of 00:00: as needed [facility] alendronate 2022-0 Yes Un[facility] 70 mg 1-26 ity of tablet 00:00: [place] [facility] zolpidem 10 2022-0 Yes 1 tablet [facility] mg tablet 1-26 at bedtime ity of 00:00: as needed [facility] alendronate 2022-0 Yes Un[facility] 70 mg 1-26 ity of tablet 00:00: [place] [facility] zolpidem 10 2022-0 Yes 1 tablet [facility] mg tablet 1-26 at bedtime ity of 00:00: as needed [place] [facility] alendronate 2022-0 Yes [facility] 70 mg 1-26 ity of tablet 00:00: [place] [address] [facility] zolpidem 10 2022-0 Yes 1 tablet [facility] mg tablet 1-26 at bedtime ity of 00:00: as needed [place] [facility] alendronate 2022-0 Yes [facility] 70 mg 1-26 ity of tablet 00:00: [place] [address] [facility] zolpidem 10 2022-0 Yes 1 tablet [facility] mg tablet 1-26 at bedtime ity of 00:00: as needed [place] [facility] alendronate 2022-0 Yes [facility] 70 mg 1-26 ity of tablet 00:00: [place] [address] [facility] zolpidem 10 2022-0 Yes 1 tablet [facility] mg tablet 1-26 at bedtime ity of 00:00: as needed [place] [facility] alendronate 2022-0 Yes [facility] 70 mg 1-26 ity of tablet 00:00: [place] [address] [facility] zolpidem 10 2022-0 Yes 1 tablet [facility] mg tablet 1-26 at bedtime ity of 00:00: as needed [place] [facility] alendronate 2022-0 Yes [facility] 70 mg 1-26 ity of tablet 00:00: [place] [address] [facility] zolpidem 10 2022-0 Yes 1 tablet [facility] mg tablet 1-26 at bedtime ity of 00:00: as needed [place] [facility] alendronate 2022-0 Yes [facility] 70 mg 1-26 ity of tablet 00:00: [place] [address] [facility] zolpidem 10 2022-0 Yes 1 tablet [facility] mg tablet 1-26 at bedtime ity of 00:00: as needed [place] [facility] alendronate 2022-0 Yes Un[facility] 70 mg 1-26 ity of tablet 00:00: [place] [facility] zolpidem 10 2022-0 Yes 1 tablet [facility] mg tablet 1-26 at bedtime ity of 00:00: as needed [place] [facility] alendronate 2022-0 Yes [facility] 70 mg 1-26 ity of tablet 00:00: [place] [address] [facility] zolpidem 10 2022-0 Yes 1 tablet [facility] mg tablet 1-26 at bedtime ity of 00:00: as needed [place] [facility] alendronate 2022-0 Yes Un[facility] 70 mg 1-26 ity of tablet 00:00: [place] [address] [facility] zolpidem 10 2022-0 Yes 1 tablet [facility] mg tablet 1-26 at bedtime ity of 00:00: as needed [place] [facility] alendronate 2022-0 Yes [facility] 70 mg 1-26 ity of tablet 00:00: [place] [address] [facility] zolpidem 10 2022-0 Yes 1 tablet [facility] mg tablet 1-26 at bedtime ity of 00:00: as needed [place] [facility] alendronate 2022-0 Yes Un[facility] 70 mg 1-26 ity of tablet 00:00: [place] [address] [facility] zolpidem 10 2022-0 Yes 1 tablet [facility] mg tablet 1-26 at bedtime ity of 00:00: as needed [place] [facility] alendronate 2022-0 Yes [facility] 70 mg 1-26 ity of tablet 00:00: [place] [address] [facility] zolpidem 10 2022-0 Yes 1 tablet [facility] mg tablet 1-26 at bedtime ity of 00:00: as needed [place] [facility] alendronate 2022-0 Yes [facility] 70 mg 1-26 ity of tablet 00:00: [place] [address] [facility] zolpidem 10 2022-0 Yes 1 tablet [facility] mg tablet 1-26 at bedtime ity of 00:00: as needed [place] [address] [facility] alendronate 2022-0 Yes [facility] 70 mg 1-26 ity of tablet 00:00: [facility] zolpidem 10 0 Yes 1 tablet [facility] mg tablet 1-26 at bedtime ity of 00:00: as needed [facility] alendronate 0 Yes Un[facility] 70 mg 1-26 ity of tablet 00:00: [place] [facility] zolpidem 10 0 Yes 1 tablet [facility] mg tablet 1-26 at bedtime ity of 00:00: as needed [facility] alendronate 0 Yes [facility] 70 mg 1-26 ity of tablet 00:00: [place] [facility] zolpidem 10 0 Yes 1 tablet [facility] mg tablet 1-26 at bedtime ity of 00:00: as needed [facility] alendronate 0 Yes [facility] 70 mg 1-26 ity of tablet 00:00: [place] [facility] zolpidem 10 0 Yes 1 tablet [facility] mg tablet 1-26 at bedtime ity of 00:00: as needed [facility] alendronate 0 Yes [facility] 70 mg 1-26 ity of tablet 00:00: [place] [facility] zolpidem 10 0 Yes 1 tablet [facility] mg tablet 1-26 at bedtime ity of 00:00: as needed [facility] alendronate 0 Yes [facility] 70 mg 1-26 ity of tablet 00:00: [place] [facility] zolpidem 10 0 Yes 1 tablet [facility] mg tablet 1-26 at bedtime ity of 00:00: as needed [facility] alendronate 0 Yes Un[facility] 70 mg 1-26 ity of tablet 00:00: [place] [facility] zolpidem 10 2022-0 Yes 1 tablet [facility] mg tablet 1-26 at bedtime ity of 00:00: as needed [facility] zolpidem 10 0 Yes 1 tablet [facility] mg tablet 1-26 at bedtime ity of 00:00: as needed [place] [facility] zolpidem 10 0 Yes 1 [...] ity of 00:00: as needed [place] [address] [facility] zolpidem 10 Yes 1 tablet [facility] mg tablet 05-10 at bedtime ity of 00:00: as needed [place] [facility] alendronate 2022- No [facility] 70 mg 05-10 ity of tablet 00:00: 00:00 [place] 00 :00 [facility] zolpidem 10 2022- No 10mg Take 1 [facility] vers mg tablet 05-10 tablet by ity of 00:00: 00:00 mouth. [place] 00 :00 [facility] metoprolol 2022- No [id number] 25mg Take 1 [facility] succinate 05-10- tablet by ity of XL (TOPROL 00:00: 04:59 mouth in [place] XL) 25 mg 00 :00 the Medical 24 hr morning Branch tablet for 90 days. metoprolol 2022- No [id number] 25mg Take 1 [facility] succinate 05-10- tablet by ity of XL (TOPROL 00:00: 04:59 mouth in [place] XL) 25 mg 00 :00 the Medical 24 hr morning Branch tablet for 90 days. metoprolol 2022- No [id number] 25mg Take 1 [facility] succinate 05-10- tablet by ity of XL (TOPROL 00:00: 04:59 mouth in [place] XL) 25 mg 00 :00 the Medical 24 hr morning Branch tablet for 90 days. metoprolol 2022- No [id number] 25mg Take 1 [facility] succinate 05-10- tablet by ity of XL (TOPROL 00:00: 04:59 mouth in [place] XL) 25 mg 00 :00 the Medical 24 hr morning Branch tablet for 90 days. metoprolol 2022- No [id number] 25mg Take 1 [facility] succinate 05-10- tablet by ity of XL (TOPROL 00:00: 04:59 mouth in [place] XL) 25 mg 00 :00 the Medical 24 hr morning Branch tablet for 90 days. metoprolol 2022- No [id number] 25mg Take 1 [facility] succinate 05-10- tablet by ity of XL (TOPROL 00:00: 04:59 mouth in [place] XL) 25 mg 00 :00 the Medical 24 hr morning Branch tablet for 90 days. metoprolol 2022- No [id number] 25mg Take 1 [facility] succinate 1-10 06-27 tablet by ity of XL (TOPROL 00:00: 00:00 mouth in [place] XL) 25 mg 00 :00 the Medical 24 hr morning Branch tablet for 90 days. metoprolol 2022- No [id number] 25mg Take 1 [facility] succinate 1-10 06-27 tablet by ity of XL (TOPROL 00:00: 00:00 mouth in [place] XL) 25 mg 00 :00 the Medical 24 hr morning Branch tablet for 90 days. metoprolol 2022- No [id number] 25mg Take 1 [facility] succinate 1-10 06-27 tablet by ity of XL (TOPROL 00:00: 00:00 mouth in [place] XL) 25 mg 00 :00 the Medical 24 hr morning Branch tablet for 90 days. metoprolol 2022- No [id number] 25mg Take 1 [facility] succinate 05-10-27 tablet by ity of XL (TOPROL 00:00: 00:00 mouth in [place] XL) 25 mg 00 :00 the Medical 24 hr morning Branch tablet for 90 days. metoprolol 2022- No [id number] 25mg Take 1 [facility] succinate 05-10-27 tablet [...] 00:00 [place] 00 :00 [facility] Branch Diclofenac 3-0 2023- No [facility] Sodium 1 % 1-25 -27 ity of gel 00:00: 00:00 [place] 00 :00 [facility] Diclofenac 2023-0 2023- No [facility] Sodium 1 % 1-25 -27 ity of gel 00:00: 00:00 [place] 00 :00 [facility] Diclofenac 2022-0 2022- No [facility] Sodium 1 % 05-09 ity of gel 00:00: 00:00 [place] 00 :00 [facility] Diclofenac 2022-0 2022- No [facility] Sodium 1 % 25 06-11 ity of gel 00:00: 00:00 [place] 00 :00 [facility] ezetimibe 2021-04 Yes 10mg Take 1 [facility] s (ZETIA) 10 2-19 tablet by ity of mg tablet 00:00: mouth [place] 00 the Medical morning. Branch metoprolol 2021-04 Yes [id number] 25mg Take 1 [facility] n[facility] tartrate 25 2-19 tablet by [facility]y of mg tablet 00:00: [place] 00 the Medical morning Branch and 1 tablet in the evening. ezetimibe 2021-04 Yes 10mg Take 1 [facility] (ZETIA) 10 2-19 tablet by [facility] of mg tablet 00:00: [place] 00 the Medical morning. Branch metoprolol 2021-04 Yes [id number] 25mg Take 1 [facility] nivers tartrate 25 2-19 tablet by [facility] of mg tablet 00:00: [place] 00 the Medical morning Branch and 1 tablet in the evening. ezetimibe 2021-04 Yes 10mg Take 1 [facility] (ZETIA) 10 2-19 tablet by [facility] of mg tablet 00:00: [place] 00 the Medical morning. Branch metoprolol 2021-04 Yes [id number] 25mg Take 1 [facility] n[facility] tartrate 25 2-19 tablet by [facility] of mg tablet 00:00: [place] 00 the Medical morning Branch and 1 tablet in the evening. ezetimibe 2021-04 Yes 10mg Take 1 [facility] (ZETIA) 10 2-19 tablet by [facility] of mg tablet 00:00: [place] 00 the Medical morning. Branch metoprolol 2021-04 Yes [id number] 25mg Take 1 [facility] n[facility] tartrate 25 2-19 tablet by [facility] of mg tablet 00:00: [place] 00 the Medical morning Branch and 1 tablet in the evening. ezetimibe 2021-04 Yes 10mg Take 1 [facility] (ZETIA) 10 2-19 tablet by [facility] of mg tablet 00:00: mouth [place] 00 the Medical morning. Branch metoprolol 2021-04 Yes [id number] 25mg Take 1 [facility] n[facility] tartrate 25 2-19 tablet by [facility] of mg tablet 00:00: [place] 00 the Medical morning Branch and 1 tablet in the evening. ezetimibe 2021-04 Yes 10mg Take 1 [facility] (ZETIA) 10 2-19 tablet by [facility] of mg tablet 00:00: [place] 00 the Medical morning. Branch metoprolol 2021-04 Yes [id number] 25mg Take 1 [facility] n[facility] tartrate 25 2-19 tablet by [facility] of mg tablet 00:00: [place] 00 the Medical morning Branch and 1 tablet in the evening. ezetimibe 2021-04 Yes 10mg Take 1 [facility] (ZETIA) 10 2-19 tablet by [facility] mg tablet 00:00: [place] 00 the Medical morning. Branch metoprolol 2021-04 Yes [id number] 25mg Take 1 U nivers tartrate 25 [...] 10mg Take 1 [facility] rs 10 mg 2-19 09-24 tablet by ity of tablet 00:00: 00:00 mouth [place] 00 :00 every Medical morning. Branch ezetimibe 2021-04- No 10mg Take 1 [facility] rs (ZETIA) 10 2-19 04-18 tablet by ity of mg tablet 00:00: 00:00 mouth in [place] 00 :00 the Medical morning. Branch metoprolol 2021-04- No [id number] 25mg Take 1 [facility] tartrate 25 2-19 -26 tablet by it y of mg tablet 00:00: 00:00 mouth in [place] 00 :00 the Medical morning Branch and 1 tablet in the evening. metoprolol 2021-04- No [id number] 25mg Take 1 [facility] tartrate 25 06-03 tablet by it y of mg tablet 00:00: 00:00 mouth in [place] 00 :00 the Medical morning Branch and 1 tablet in the evening. warfarin 2021-04 Yes [id number] 1mg Take 1 [facility] mg tablet 2-01 tablet by ity o f 00:00: mouth [place] 00 every Medical evening. Branch Alternate take 1mg x3 days, then 2mg x 4 days warfarin 2021-04 Yes [id number] 1mg Take 1 [facility] mg tablet 2-01 tablet by ity o f 00:00: mouth [place] 00 every Medical evening. Branch Alternate take 1mg x3 days, then 2mg x 4 days dofetilide 2021-04 Yes [id number] 125ug Take 1 [facility] 125 mcg 2-01 capsule by ity of capsule 00:00: mouth [place] 00 every 12 Medical (twelve) Branch hours. warfarin 2021-04 Yes [id number] 1mg Take 1 [facility] mg tablet 2-01 tablet by ity o f 00:00: mouth [place] 00 every Medical evening. Branch Alternate take 1mg x3 days, then 2mg x 4 days dofetilide 2021-04 Yes [id number] 125ug Take 1 [facility] 125 mcg 2-01 capsule by ity of capsule 00:00: mouth [place] 00 every 12 Medical (twelve) Branch hours. warfarin 2021-04 Yes [id number] 1mg Take 1 [facility] mg tablet 2-01 tablet by ity o f 00:00: mouth [place] 00 every Medical evening. Branch Alternate take 1mg x3 days, then 2mg x 4 days dofetilide 2021-04 Yes [id number] 125ug Take 1 [facility] 125 mcg 2-01 capsule by ity of capsule 00:00: mouth [place] 00 every 12 Medical (twelve) Branch hours. warfarin 2021-04 Yes [id number] 1mg Take 1 [facility] mg tablet 2-01 tablet by ity o f 00:00: mouth [place] 00 every Medical evening. Branch Alternate take 1mg x3 days, then 2mg x 4 days dofetilide 2021-04 Yes [id number] 125ug Take 1 [facility] 125 mcg 2-01 capsule by ity of capsule 00:00: mouth [place] 00 every 12 Medical (twelve) Branch hours. warfarin 2021-04 Yes [id number] 1mg Take 1 [facility] mg tablet 2-01 tablet by ity o f 00:00: mouth [place] 00 every Medical evening. Branch Alternate take 1mg x3 days, then 2mg x 4 days dofetilide 2021-04 Yes [id number] 125ug Take 1 [facility] 125 mcg 2-01 capsule by ity of capsule 00:00: mouth [place] 00 every 12 Medical (twelve) Branch hours. warfarin 2021-04 Yes [id number] 1mg Take 1 [facility] mg tablet 2-01 tablet by ity o f 00:00: mouth [place] 00 every Medical evening. Branch Alternate take 1mg x3 days, then 2mg x 4 days dofetilide 2021-04 Yes [id number] 125ug Take 1 [facility] 125 mcg 2-01 capsule by ity of capsule 00:00: mouth [place] 00 every 12 Medical (twelve) Branch hours. warfarin 2021-04 Yes [id number] 1mg Take 1 [facility] mg tablet 2-01 tablet by ity o f 00:00: mouth [place] 00 every Medical evening. Branch Alternate take 1mg x3 days, then 2mg x 4 days dofetilide 2021-04 Yes [id number] 125ug Take 1 [facility] 125 mcg 2-01 capsule by ity of capsule 00:00: mouth [place] 00 every 12 Medical (twelve) Branch hours. warfarin 2021-04 Yes [id number] 1mg Take 1 [facility] mg tablet 2-01 tablet by ity o f 00:00: mouth [place] 00 every Medical evening. Branch Alternate take 1mg x3 days, then 2mg x 4 days dofetilide 2021-04 Yes [id number] 125ug Take 1 [facility] 125 mcg 2-01 capsule by ity of capsule 00:00: mouth [place] 00 every 12 Medical (twelve) Branch hours. warfarin 2021-04 Yes [id number] 1mg Take 1 [facility] mg tablet 2-01 tablet by ity o f 00:00: mouth [place] 00 every Medical evening. Branch Alternate take 1mg x3 days, then 2mg x 4 days dofetilide 2021-04 Yes [id number] 125ug Take 1 [facility] 125 mcg 2-01 capsule by ity of capsule 00:00: mouth [place] 00 every 12 Medical (twelve) Branch hours. warfarin 2021-04 Yes [id number] 1mg Take 1 [facility]01 tablet by [facility] f 00:00: mouth [place] 00 every Medical evening. Branch Alternate take 1mg x3 days, then 2mg x 4 days dofetilide 2021-04 Yes [id number] 125ug Take 1 [facility] 125 mcg 2-01 capsule by [facility] capsule 00:00: mouth [place] 00 every 12 Medical (twelve) Branch hours. warfarin 2021-04 Yes [id number] 1mg Take 1 [facility] mg tablet 2-01 tablet by [facility] f 00:00: mouth [place] 00 every Medical evening. Branch Alternate take 1mg x3 days, then 2mg x 4 days dofetilide 2021-04 Yes [id number] 125ug Take 1 [facility] 125 mcg 2-01 capsule by [facility] capsule 00:00: mouth [place] 00 every 12 Medical (twelve) Branch hours. warfarin 2021-04 Yes [id number] 1mg Take 1 [facility] mg tablet 2-01 tablet by [facility] f 00:00: mouth [place] 00 every Medical evening. Branch Alternate take 1mg x3 days, then 2mg x 4 days dofetilide 2021-04 Yes [id number] 125ug Take 1 [facility] 125 mcg 2-01 capsule by [facility] capsule 00:00: mouth [place] 00 every 12 Medical (twelve) Branch hours. warfarin 2021-04 Yes [id number] 1mg Take 1 [facility] mg tablet 2-01 tablet by [facility] f 00:00: mouth [place] 00 every Medical evening. Branch Alternate take 1mg x3 days, then 2mg x 4 days dofetilide 2021-04 Yes [id number] 125ug Take 1 [facility] 125 mcg 2-01 capsule by [facility] capsule 00:00: mouth [place] 00 every 12 Medical (twelve) Branch hours. warfarin 2021-04 Yes [id number] 1mg Take 1 [facility] mg tablet 2-01 tablet by [facility] f 00:00: mouth [place] 00 every Medical evening. Branch Alternate take 1mg x3 days, then 2mg x 4 days dofetilide 2021-04 Yes [id number] 125ug Take 1 [facility] 125 mcg 2-01 capsule by [facility] capsule 00:00: mouth [place] 00 every 12 Medical (twelve) Branch hours. warfarin 1 2021-04 Yes [id number] 1mg Take 1 [facility] mg tablet 2- tablet by [facility] f 00:00: mouth [place] 00 every Medical evening. Branch Alternate take 1mg x3 days, then 2mg x 4 days dofetilide 2021-04 Yes [id number] 125ug Take 1 [facility] 125 mcg 2- capsule by [facility] capsule 00:00: mouth [place] 00 every 12 Medical (twelve) Branch hours. warfarin 2021-04- No [id number] 1mg Take 1 [facility] mg tablet 05-16 tablet by [facility] of 00:00: 00:00 mouth [place] 00 :00 every Medical evening. Branch Alternate take 1mg x3 days, then 2mg x 4 days dofetilide 2021-04- No [id number] 125ug Take 1 [facility] 125 mcg 05-16 capsule by [facility] o f capsule 00:00: 00:00 mouth [place] 00 :00 every 12 Medical (twelve) Branch hours. warfarin 2021-04- No [id number] 1mg Take 1 [facility] mg tablet 05-16 tablet by [facility] of 00:00: 00:00 mouth [place] 00 :00 every Medical evening. Branch Alternate take 1mg x3 days, then 2mg x 4 days dofetilide 2021-04- No [id number] 125ug Take 1 [facility] 125 mcg 05-16 capsule by [facility] o f capsule 00:00: 00:00 mouth [place] 00 :00 every 12 Medical (twelve) Branch hours. warfarin 2021-04- No [id number] 1mg Take 1 [facility] mg tablet 05-16 tablet by [facility] of 00:00: 00:00 mouth [place] 00 :00 every Medical evening. Branch Alternate take 1mg x3 days, then 2mg x 4 days dofetilide 2021-04- No [id number] 125ug Take 1 [facility] 125 mcg 05-16 capsule by [facility] o f capsule 00:00: 00:00 mouth [place] 00 :00 every 12 Medical (twelve) Branch hours. warfarin 2021-04- No [id number] 1mg Take 1 [facility] mg tablet 05-16 tablet by [facility] of 00:00: 00:00 mouth [place] 00 :00 every Medical evening. Branch Alternate take 1mg x3 days, then 2mg x 4 days dofetilide 2021-04- No [id number] 125ug Take 1 [facility] 125 mcg 05-16 capsule by [facility] o f capsule 00:00: 00:00 mouth [place] 00 :00 every 12 Medical (twelve) Branch hours. warfarin 2021-04- No [id number] 1mg Take 1 [facility] mg tablet 05-16 tablet by [facility] of 00:00: 00:00 mouth [place] 00 :00 every Medical evening. Branch Alternate take 1mg x3 days, then 2mg x 4 days dofetilide 2021-04- No [id number] 125ug Take 1 [facility] 125 mcg 05-16 capsule by [facility] f capsule 00:00: 00:00 mouth [place] 00 :00 every 12 Medical (twelve) Branch hours. warfarin 2021-04 Yes [id number] 1mg Take 1 [facility] mg tablet 1-01 tablet by [facility] f 00:00: mouth [place] 00 every Medical evening. Branch Alternate take 1mg x4 days, then 2mg x 3 days warfarin 2021-04 Yes [id number] 1mg Take 1 [facility] mg tablet 1-01 tablet by [facility] f 00:00: mouth [place] 00 every Medical evening. Branch Alternate take 1mg x4 days, then 2mg x 3 days warfarin 2021-04 Yes [id number] 1mg Take 1 [facility] mg tablet 1-01 tablet by [facility] f 00:00: mouth [place] 00 every Medical evening. Branch Alternate take 1mg x4 days, then 2mg x 3 days warfarin 2021-04 Yes [id number] 1mg Take 1 [facility] mg tablet 1-01 tablet by [facility] f 00:00: mouth [place] 00 every Medical evening. Branch Alternate take 1mg x4 days, then 2mg x 3 days warfarin 2021-04 Yes [id number] 1mg Take 1 [facility] mg tablet 1-01 tablet by [facility] f 00:00: mouth [place] 00 every Medical evening. Branch Alternate take 1mg x4 days, then 2mg x 3 days warfarin 2021-04 Yes [id number] 1mg Take 1 [facility] mg tablet 1-01 tablet by [facility] o f 00:00: mouth [place] 00 every Medical evening. Branch Alternate take 1mg x4 days, then 2mg x 3 days warfarin 2021-04 Yes [id number] 1mg Take 1 [facility] mg tablet 1- tablet by [facility] f 00:00: mouth [place] 00 every Medical evening. Branch Alternate take 1mg x4 days, then 2mg x 3 days warfarin 2021-04 Yes [id number] 1mg Take 1 [facility] mg tablet 1- tablet by [facility] f 00:00: mouth [place] 00 every Medical evening. Branch Alternate take 1mg x4 days, then 2mg x 3 days warfarin 2021-04 Yes [id number] 1mg Take 1 [facility] mg tablet 1- tablet by [facility] f 00:00: mouth [place] 00 every Medical evening. Branch Alternate take 1mg x4 days, then 2mg x 3 days warfarin 2021-04 Yes [id number] 1mg Take 1 [facility] mg tablet 1- tablet by [facility] f 00:00: mouth [place] 00 every Medical evening. Branch Alternate take 1mg x4 days, then 2mg x 3 days warfarin 2021-04 Yes [id number] 1mg Take 1 [facility] mg tablet 04-15 tablet by [facility] o f 00:00: mouth [place] 00 every Medical evening. Branch Alternate take 1mg x4 days, then 2mg x 3 days warfarin 2021-04- No [id number] 1mg Take 1 [facility] mg tablet 103-15 tablet by [facility] of 00:00: 00:00 mouth [place] 00 :00 every Medical evening. Branch Alternate take 1mg x4 days, then 2mg x 3 days warfarin 2021-04 Yes [id number] 1mg Take 1 [facility] mg tablet 0-17 tablet by [facility] o f 00:00: mouth [place] 00 every Medical evening. Branch Alternate take 1mg x4 days, then 2mg x 3 days warfarin 2021-04- No [id number] 1mg Take 1 [facility] mg tablet 0-17 - tablet by [facility] of 00:00: 00:00 mouth [place] 00 :00 every Medical evening. Branch Alternate take 1mg x4 days, then 2mg x 3 days ezetimibe Yes 10mg Take 1 [facility] [...] 10mg Take 1 [facility] (ZETIA) 10 12-15 tablet by [facility] mg tablet 00:00: mouth [place] 00 the Medical morning. Branch ezetimibe 2021- No 10mg Take 1 [facility] (ZETIA) 10 9 12- tablet by [facility] mg tablet 00:00: 00:00 mouth in [place] 00 :00 the Medical morning. Branch warfarin Yes [id number] 1mg Take 1 [facility] mg tablet 8-24 tablet by [facility] o f 00:00: mouth [place] 00 every Medical evening. Branch Alternate take 1mg x2days, then 2mg x 1 day warfarin 1 Yes [id number] 1mg Take 1 [facility] mg tablet 8-24 tablet by [facility] o f 00:00: mouth [place] 00 every Medical evening. Branch Alternate take 1mg x2days, then 2mg x 1 day warfarin Yes [id number] 1mg Take 1 [facility] mg tablet 8-24 tablet by [facility] o f 00:00: mouth [place] 00 every Medical evening. Branch Alternate take 1mg x2days, then 2mg x 1 day warfarin Yes [id number] 1mg Take 1 [facility] mg tablet 8-24 tablet by [facility] o f 00:00: mouth [place] 00 every Medical evening. Branch Alternate take 1mg x2days, then 2mg x 1 day warfarin Yes [id number] 1mg Take 1 [facility] mg tablet 8-24 tablet by [facility] o f 00:00: mouth [place] 00 every Medical evening. Branch Alternate take 1mg x2days, then 2mg x 1 day warfarin Yes [id number] 1mg Take 1 [facility] mg tablet 8-24 tablet by [facility] o f 00:00: mouth [place] 00 every Medical evening. Branch Alternate take 1mg x2days, then 2mg x 1 day warfarin Yes [id number] 1mg Take 1 [facility] mg tablet 8-24 tablet by [facility] o f 00:00: mouth [place] 00 every Medical evening. Branch Alternate take 1mg x2days, then 2mg x 1 day warfarin 1 Yes [id number] 1mg Take 1 [facility] mg tablet 8-24 tablet by [facility] o f 00:00: mouth [place] 00 every Medical evening. Branch Alternate take 1mg x2days, then 2mg x 1 day warfarin 1 Yes [id number] 1mg Take 1 [facility] mg tablet 8-24 tablet by [facility] o f 00:00: mouth [place] 00 every Medical evening. Branch Alternate take 1mg x2days, then 2mg x 1 day warfarin 1 Yes [id number] 1mg Take 1 [facility] mg tablet 8-24 tablet by [facility] o f 00:00: mouth [place] 00 every Medical evening. Branch Alternate take 1mg x2days, then 2mg x 1 day warfarin 1 Yes [id number] 1mg Take 1 [facility] mg tablet 8-24 tablet by [facility] o f 00:00: mouth [place] 00 every Medical evening. Branch Alternate take 1mg x2days, then 2mg x 1 day warfarin 1 Yes [id number] 1mg Take 1 [facility] mg tablet 8-24 tablet by [facility] o f 00:00: mouth [place] 00 every Medical evening. Branch Alternate take 1mg x2days, then 2mg x 1 day warfarin Yes [id number] 1mg Take 1 [facility] mg tablet 8-24 tablet by [facility] o f 00:00: mouth [place] 00 every Medical evening. Branch Alternate take 1mg x2days, then 2mg x 1 day warfarin 1 2021- No [id number] 1mg Take 1 [facility] mg tablet 8-24 10-17 tablet by [facility] of 00:00: 00:00 mouth [place] 00 :00 every Medical evening. Branch Alternate take 1mg x2days, then 2mg x 1 day warfarin 1 2021- No [id number] 2mg Take 2 [facility] mg tablet 8-23 08-24 tablets by [facility] of 00:00: 00:00 mouth [place] 00 :00 every Medical evening. Branch dofetilide 2021- No [id number] 125ug Take 1 [facility] 125 mcg 8-19 08-27 capsule by [facility] o f capsule 00:00: 04:59 mouth [place] 00 :00 every 12 Medical (twelve) Branch hours for 7 days. dofetilide 2021- No [id number] 125ug Take 1 [facility] 125 mcg 8-19 08-27 capsule by [facility] o f capsule 00:00: 04:59 mouth [place] 00 :00 every 12 Medical (twelve) Branch hours for 7 days. dofetilide 2021- No [id number] 125ug Take 1 [facility] 125 mcg 8-17 11-16 capsule by [facility] o f capsule 00:00: 05:59 mouth [place] 00 :00 every 12 Medical (twelve) Branch hours for 90 days. dofetilide 2021- No [id number] 125ug Take 1 [facility] 125 mcg 8-17 11-16 capsule by [facility] o f capsule 00:00: 05:59 mouth [place] 00 :00 every 12 Medical (twelve) Branch hours for 90 days. dofetilide 2021- No [id number] 125ug Take 1 [facility] 125 mcg 8-17 11-16 capsule by [facility] o f capsule 00:00: 05:59 mouth [place] 00 :00 every 12 Medical (twelve) Branch hours for 90 days. dofetilide 2021- No [id number] 125ug Take 1 [facility] 125 mcg 8-17 11-16 capsule by [facility] o f capsule 00:00: 05:59 mouth [place] 00 :00 every 12 Medical (twelve) Branch hours for 90 days. dofetilide 2021- No [id number] 125ug Take 1 [facility] 125 mcg 8-17 11-16 capsule by [facility] o f capsule 00:00: 05:59 mouth [place] 00 :00 every 12 Medical (twelve) Branch hours for 90 days. dofetilide 2021- No [id number] 125ug Take 1 [facility] 125 mcg 8-17 11-16 capsule by [facility] o f capsule 00:00: 05:59 mouth [place] 00 :00 every 12 Medical (twelve) Branch hours for 90 days. dofetilide 2021- No [id number] 125ug Take 1 [facility] 125 mcg 8-17 11-16 capsule by [facility] o f capsule 00:00: 05:59 mouth [place] 00 :00 every 12 Medical (twelve) Branch hours for 90 days. dofetilide 2021- No [id number] 125ug Take 1 [facility] 125 mcg 8-17 11-16 capsule by [facility] o f capsule 00:00: 05:59 mouth [place] 00 :00 every 12 Medical (twelve) Branch hours for 90 days. dofetilide 2021- No [id number] 125ug Take 1 [facility] 125 mcg 8-17 11-16 capsule by [facility] o f capsule 00:00: 05:59 mouth [place] 00 :00 every 12 Medical (twelve) Branch hours for 90 days. dofetilide 2021- No [id number] 125ug Take 1 [facility] 125 mcg 8-17 11-16 capsule by [facility] o f capsule 00:00: 05:59 mouth [place] 00 :00 every 12 Medical (twelve) Branch hours for 90 days. dofetilide 2- No [id number] 125ug Take 1 [facility] 125 mcg 8-17 11-16 capsule by [facility] o f capsule 00:00: 05:59 mouth [place] 00 :00 every 12 Medical (twelve) Branch hours for 90 days. dofetilide 2021- No [id number] 125ug Take 1 [facility] 125 mcg 8-17 11-16 capsule by [facility] o f capsule 00:00: 05:59 mouth [place] 00 :00 every 12 Medical (twelve) Branch hours for 90 days. dofetilide 2- No [id number] 125ug Take 1 [facility] 125 mcg 8-17 11-16 capsule by [facility] o f capsule 00:00: 05:59 mouth [place] 00 :00 every 12 Medical (twelve) Branch hours for 90 days. dofetilide 2021- No [id number] 125ug Take 1 [facility] 125 mcg 8-17 11-16 capsule by [facility] o f capsule 00:00: 05:59 mouth [place] 00 :00 every 12 Medical (twelve) Branch hours for 90 days. dofetilide 2- No [id number] 125ug Take 1 [facility] 125 mcg 8-17 11-16 capsule by [facility] o f capsule 00:00: 05:59 mouth [place] 00 :00 every 12 Medical (twelve) Branch hours for 90 days. dofetilide 2021- No [id number] 125ug Take 1 [facility] 125 mcg 8-17 11-16 capsule by [facility] o f capsule 00:00: 05:59 mouth [place] 00 :00 every 12 Medical (twelve) Branch hours for 90 days. dofetilide 2- No [id number] 125ug Take 1 [facility] 125 mcg 8-17 11-16 capsule by [facility] o f capsule 00:00: 05:59 mouth [place] 00 :00 every 12 Medical (twelve) Branch hours for 90 days. dofetilide 2021-0 2021- No [id number] 125ug Take 1 [facility] 125 mcg 8-17 11-16 capsule by [facility] o f capsule 00:00: 05:59 mouth [place] 00 :00 every 12 Medical (twelve) Branch hours for 90 days. dofetilide 2021-0 2021- No [id number] 125ug Take 1 [facility] 125 mcg 8-17 11-16 capsule by [facility] o f capsule 00:00: 05:59 mouth [place] 00 :00 every 12 Medical (twelve) Branch hours for 90 days. dofetilide 2021- No [id number] 125ug Take 1 [facility] 125 mcg 8-17 11-16 capsule by [facility] o f capsule 00:00: 05:59 mouth [place] 00 :00 every 12 Medical (twelve) Branch hours for 90 days. atorvastati 0 Yes 80mg Take 1 [facility] ers n 80 mg 7-12 tablet by [facility] of tablet 00:00: mouth at [place] [address] bedtime. Medical Branch atorvastati 2021-0 Yes 80mg Take 1 [facility] ers n 80 mg 7-12 tablet by [facility] of tablet 00:00: mouth at [place] [address] bedtime. Medical Branch atorvastati 2021-0 Yes 80mg Take 1 [facility] ers n 80 mg 7-12 tablet by [facility] of tablet 00:00: mouth at [place] [address] bedtime. Medical Branch atorvastati 0 Yes 80mg Take 1 [facility] ers n 80 mg 7-12 tablet by [facility] of tablet 00:00: mouth at [place] [address] bedtime. Medical Branch atorvastati 2021-0 Yes 80mg Take 1 [facility] ers n 80 mg 7-12 tablet by [facility] of tablet 00:00: mouth at [place] [address] bedtime. Medical Branch atorvastati 2021-0 Yes 80mg Take 1 [facility] ers n 80 mg 7-12 tablet by [facility] of tablet 00:00: mouth at [place] [address] bedtime. Medical Branch atorvastati 2021-0 Yes 80mg Take 1 [facility] ers n 80 mg 7-12 tablet by [facility] of tablet 00:00: mouth at [place] [address] bedtime. Medical Branch atorvastati 2021-0 Yes 80mg Take 1 [facility] ers n 80 mg 7-12 tablet by [facility] of tablet 00:00: mouth at [place] [address] bedtime. Medical Branch atorvastati 2022-0 Yes 80mg Take 1 [facility] ers n 80 mg 7-12 tablet by [facility] of tablet 00:00: mouth at [place] [address] bedtime. Medical Branch atorvastati 2-0 Yes 80mg Take 1 [facility] n 80 mg 7-12 tablet by [facility] of tablet 00:00: mouth at [place] [address] bedtime. Medical Branch atorvastati 2-0 Yes 80mg Take 1 [facility] ers n 80 mg 7-12 tablet by [facility] of tablet 00:00: mouth at [place] [address] bedtime. Medical Branch atorvastati 2-0 Yes 80mg Take 1 [facility] ers n 80 mg 7-12 tablet by [facility] of tablet 00:00: mouth at [place] [address] bedtime. Medical Branch atorvastati 2-0 Yes 80mg Take 1 [facility] ers n 80 mg 7-12 tablet by [facility] of tablet 00:00: mouth at [place] [address] bedtime. Medical Branch atorvastati 2-0 Yes 80mg Take 1 [facility] ers n 80 mg 7-12 tablet by [facility] of tablet 00:00: mouth at [place] [address] bedtime. Medical Branch atorvastati 2-0 Yes 80mg Take 1 [facility] ers n 80 mg 7-12 tablet by [facility] of tablet 00:00: mouth at [place] [address] bedtime. Medical Branch atorvastati 2-0 Yes 80mg Take 1 [facility] ers n 80 mg 7-12 tablet by [facility] of tablet 00:00: mouth at [place] [address] bedtime. Medical Branch atorvastati 2-0 Yes 80mg Take 1 [facility] ers n 80 mg 7-12 tablet by [facility] of tablet 00:00: mouth at [place] [address] bedtime. Medical Branch atorvastati 2-0 Yes 80mg Take 1 [facility] ers n 80 mg 7-12 tablet by [facility] of tablet 00:00: mouth at [place] [address] bedtime. Medical Branch atorvastati 2022-0 Yes 80mg Take 1 [facility] ers n 80 mg 7-12 tablet by [facility] of tablet 00:00: mouth at [place] [address] bedtime. Medical Branch atorvastati 2022-0 Yes 80mg Take 1 [facility] ers n 80 mg 7-12 tablet by [facility] of tablet 00:00: mouth at [place] [address] bedtime. Medical Branch atorvastati 2-0 Yes 80mg Take 1 [facility] ers n 80 mg 7-12 tablet by [facility] of tablet 00:00: mouth at [place] [address] bedtime. Medical Branch atorvastati 2022-0 Yes 80mg Take 1 [facility] ers n 80 mg 7-12 tablet by [facility] of tablet 00:00: mouth at [place] [address] bedtime. Medical Branch atorvastati 2-0 Yes 80mg Take 1 [facility] ers n 80 mg 7-12 tablet by [facility] of tablet 00:00: mouth at [place] [address] bedtime. Medical Branch atorvastati 2-0 Yes 80mg Take 1 [facility] ers n 80 mg 7-12 tablet by [facility] of tablet 00:00: mouth at [place] bedtime. Medical Branch atorvastati 2-0 Yes 80mg Take 1 [facility] ers n 80 mg 7-12 tablet by [facility] of tablet 00:00: mouth at [place] [address] bedtime. Medical Branch atorvastati 2-0 Yes 80mg Take 1 [facility] ers n 80 mg 7-12 tablet by [facility] of tablet 00:00: mouth at [place] [address] bedtime. Medical Branch atorvastati 2-0 Yes 80mg Take 1 [facility] n 80 mg 7-12 tablet by [facility] of tablet 00:00: mouth at [place] [address] bedtime. Medical Branch atorvastati 2-0 Yes 80mg Take 1 [facility] n 80 mg 7-12 tablet by [facility] of tablet 00:00: mouth at [place] [address] bedtime. Medical Branch atorvastati 2-0 Yes 80mg Take 1 [facility] n 80 mg 7-12 tablet by [facility] of tablet 00:00: mouth at [place] [address] bedtime. Medical Branch atorvastati 2022-0 Yes 80mg Take 1 [facility] n 80 mg 7-12 tablet by [facility] of tablet 00:00: mouth at [place] [address] bedtime. Medical Branch atorvastati 2022-0 Yes 80mg Take 1 [facility] n 80 mg 7-12 tablet by [facility] of tablet 00:00: mouth at [place] [address] bedtime. Medical Branch atorvastati 2022-0 Yes 80mg Take 1 [facility] n 80 mg 7-12 tablet by [facility] of tablet 00:00: mouth at [place] [address] bedtime. Medical Branch atorvastati 2022-0 Yes 80mg Take 1 [facility] n 80 mg 7-12 tablet by [facility] of tablet 00:00: mouth at [place] [address] bedtime. Medical Branch atorvastati 2022-0 Yes 80mg Take 1 [facility] n 80 mg 7-12 tablet by [facility] of tablet 00:00: mouth at [place] [address] bedtime. Medical Branch atorvastati 2-0 Yes 80mg Take 1 [facility] ers n 80 mg 7-12 tablet by [facility] of tablet 00:00: mouth at [place] [address] bedtime. Medical Branch atorvastati 2-0 Yes 80mg Take 1 [facility] ers n 80 mg 7-12 tablet by [facility] of tablet 00:00: mouth at [place] [address] bedtime. Medical Branch atorvastati 2-0 Yes 80mg Take 1 [facility] ers n 80 mg 7-12 tablet by [facility] of tablet 00:00: mouth at [place] [address] bedtime. Medical Branch atorvastati 2-0 Yes 80mg Take 1 [facility] n 80 mg 7-12 tablet by [facility] of tablet 00:00: mouth at [place] [address] bedtime. Medical Branch atorvastati 2-0 Yes 80mg Take 1 [facility] n 80 mg 7-12 tablet by [facility] of tablet 00:00: mouth at [place] [address] bedtime. Medical Branch atorvastati 2-0 Yes 80mg Take 1 [facility] n 80 mg 7-12 tablet by [facility] of tablet 00:00: mouth at [place] [address] bedtime. Medical Branch atorvastati 2-0 Yes 80mg Take 1 [facility] n 80 mg 7-12 tablet by [facility] of tablet 00:00: mouth at [place] [address] bedtime. Medical Branch atorvastati 2-0 Yes 80mg Take 1 [facility] n 80 mg 7-12 tablet by [facility] of tablet 00:00: mouth at [place] [address] bedtime. Medical Branch atorvastati 2-0 Yes 80mg Take 1 [facility] n 80 mg 7-12 tablet by [facility] of tablet 00:00: mouth at [place] [address] bedtime. Medical Branch atorvastati 2022-0 Yes 80mg Take 1 [facility] n 80 mg 7-12 tablet by [facility] of tablet 00:00: mouth at [place] [address] bedtime. Medical Branch atorvastati 2022-0 Yes 80mg Take 1 [facility] n 80 mg 7-12 tablet by [facility] of tablet 00:00: mouth at [place] [address] bedtime. Medical Branch atorvastati 2-0 Yes 80mg Take 1 [facility] n 80 mg 7-12 tablet by [facility] of tablet 00:00: mouth at [place] [address] bedtime. Medical Branch atorvastati 2022-0 Yes 80mg Take 1 [facility] n 80 mg 7-12 tablet by [facility] of tablet 00:00: mouth at [place] [address] bedtime. Medical Branch atorvastati 2-0 Yes 80mg Take 1 [facility] n 80 mg 7-12 tablet by [facility] of tablet 00:00: mouth at [place] [address] bedtime. Medical Branch atorvastati 2-0 Yes 80mg Take 1 [facility] ers n 80 mg 7-12 tablet by [facility] of tablet 00:00: mouth at [place] bedtime. Medical Branch atorvastati 2-0 Yes 80mg Take 1 [facility] ers n 80 mg 7-12 tablet by [facility] of tablet 00:00: mouth at [place] [address] bedtime. Medical Branch atorvastati 2-0 Yes 80mg Take 1 [facility] ers n 80 mg 7-12 tablet by [facility] of tablet 00:00: mouth at [place] [address] bedtime. Medical Branch atorvastati 2-0 Yes 80mg Take 1 [facility] n 80 mg 7-12 tablet by [facility] of tablet 00:00: mouth at [place] [address] bedtime. Medical Branch atorvastati 2-0 Yes 80mg Take 1 [facility] ers n 80 mg 7-12 tablet by [facility] of tablet 00:00: mouth at [place] [address] bedtime. Medical Branch atorvastati 2-0 Yes 80mg Take 1 [facility] n 80 mg 7-12 tablet by [facility] of tablet 00:00: mouth at [place] [address] bedtime. Medical Branch atorvastati 2022-0 Yes 80mg Take 1 [facility] ers n 80 mg 7-12 tablet by [facility] of tablet 00:00: mouth at [place] [address] bedtime. Medical Branch atorvastati 2022-0 Yes 80mg Take 1 [facility] ers n 80 mg 7-12 tablet by [facility] of tablet 00:00: mouth at [place] [address] bedtime. Medical Branch atorvastati 2022-0 Yes 80mg Take 1 [facility] n 80 mg 7-12 tablet by [facility] of tablet 00:00: mouth at [place] [address] bedtime. Medical Branch atorvastati 2022-0 Yes 80mg Take 1 [facility] n 80 mg 7-12 tablet by [facility] of tablet 00:00: mouth at [place] [address] bedtime. Medical Branch atorvastati 2022-0 Yes 80mg Take 1 [facility] ers n 80 mg 7-12 tablet by [facility] of tablet 00:00: mouth at [place] [address] bedtime. Medical Branch atorvastati 2-0 Yes 80mg Take 1 [facility] n 80 mg 7-12 tablet by [facility] of tablet 00:00: mouth at [place] [address] bedtime. Medical Branch atorvastati 2-0 Yes 80mg Take 1 [facility] n 80 mg 7-12 tablet by [facility] of tablet 00:00: mouth at [place] [address] bedtime. Medical Branch atorvastati 2-0 Yes 80mg Take 1 [facility] n 80 mg 7-12 tablet by [facility] of tablet 00:00: mouth at [place] [address] bedtime. Medical Branch atorvastati 2-0 Yes 80mg Take 1 [facility] n 80 mg 7-12 tablet by [facility] of tablet 00:00: mouth at [place] [address] bedtime. Medical Branch atorvastati 2-0 Yes 80mg Take 1 [facility] n 80 mg 7-12 tablet by [facility] of tablet 00:00: mouth at [place] [address] bedtime. Medical Branch atorvastati 2-0 Yes 80mg Take 1 [facility] n 80 mg 7-12 tablet by [facility] of tablet 00:00: mouth at [place] [address] bedtime. Medical Branch atorvastati 2-0 Yes 80mg Take 1 [facility] n 80 mg 7-12 tablet by [facility] of tablet 00:00: mouth at [place] [address] bedtime. Medical Branch atorvastati 2-0 Yes 80mg Take 1 [facility] n 80 mg 7-12 tablet by [facility] of tablet 00:00: mouth at [place] [address] bedtime. Medical Branch atorvastati 2-0 Yes 80mg Take 1 [facility] n 80 mg 7-12 tablet by [facility] of tablet 00:00: mouth at [place] [address] bedtime. Medical Branch atorvastati 2022-0 Yes 80mg Take 1 [facility] n 80 mg 7-12 tablet by [facility] of tablet 00:00: mouth at [place] [address] bedtime. Medical Branch atorvastati 2022-0 Yes 80mg Take 1 [facility] n 80 mg 7-12 tablet by [facility] of tablet 00:00: mouth at [place] [address] bedtime. Medical Branch atorvastati 2-0 Yes 80mg Take 1 [facility] n 80 mg 7-12 tablet by [facility] of tablet 00:00: mouth at [place] [address] bedtime. Medical Branch atorvastati 2022-0 Yes 80mg Take 1 [facility] n 80 mg 7-12 tablet by [facility] of tablet 00:00: mouth at [place] [address] bedtime. Medical Branch atorvastati 2-0 Yes 80mg Take 1 [facility] n 80 mg 7-12 tablet by [facility] of tablet 00:00: mouth at [place] [address] bedtime. Medical Branch atorvastati 2-0 Yes 80mg Take 1 [facility] n 80 mg 7-12 tablet by [facility] of tablet 00:00: mouth at [place] bedtime. Medical Branch atorvastati 2-0 Yes 80mg Take 1 [facility] n 80 mg 7-12 tablet by [facility] of tablet 00:00: mouth at [place] [address] bedtime. Medical Branch atorvastati 2-0 Yes 80mg Take 1 [facility] n 80 mg 7-12 tablet by [facility] of tablet 00:00: mouth at [place] [address] bedtime. Medical Branch atorvastati 2-0 Yes 80mg Take 1 [facility] n 80 mg 7-12 tablet by [facility] of tablet 00:00: mouth at [place] [address] bedtime. [facility] Branch atorvastati 2-0 Yes 80mg Take 1 [facility] n 80 mg 7-12 tablet by [facility] of tablet 00:00: mouth at [place] [address] bedtime. [facility] Branch atorvastati 2-0 Yes 80mg Take 1 [facility] 80 mg 7-12 tablet by [facility] tablet 00:00: mouth at [place] [address] bedtime. [facility] atorvastati 2022-0 Yes 80mg Take 1 [facility] 80 mg 7-12 tablet by [facility] tablet 00:00: mouth at [place] [address] bedtime. [facility] atorvastati 2022-0 Yes 80mg Take 1 [facility] 80 mg 7-12 tablet by [facility] tablet 00:00: mouth at [place] [address] bedtime. [facility] atorvastati 2022-0 Yes 80mg Take 1 [facility] 80 mg 7-12 tablet by [facility] tablet 00:00: mouth at [place] [address] bedtime. [facility] atorvastati 2022-0 Yes 80mg Take 1 [facility] 80 mg 7-12 tablet by [facility] tablet 00:00: mouth at [place] [address] bedtime. [facility] atorvastati 2022-0 Yes 80mg Take 1 [facility] 80 mg 7-12 tablet by [facility] tablet 00:00: mouth at [place] 00 bedtime. [facility] atorvastati 2022- No 80mg Take 1 [facility] n 80 mg 7-12 -12 tablet by [facility] tablet 00:00: 00:00 mouth at [place] 00 :00 bedtime. [facility] atorvastati 2022- No 80mg Take 1 [facility] vers n 80 mg -12 -12 tablet by [facility] tablet 00:00: 00:00 mouth at [place] 00 :00 bedtime. [facility] ezetimibe Yes 10mg Take 1 [facility] (ZETIA) 10 5-20 tablet by [facility] mg tablet 00:00: mouth [place] 00 daily. [facility] ezetimibe Yes 10mg Take 1 [facility] (ZETIA) 10 5-20 tablet by [facility] mg tablet 00:00: mouth [place] 00 daily. [facility] ezetimibe Yes 10mg [...] Take 1 [facility] (ZETIA) 10 5-20 - tablet by [facility] mg tablet 00:00: 00:00 mouth [place] 00 :00 daily. [facility] furosemide Yes [id number] 40mg Take 2 [facility] 20 mg 2-16 02 tablets by [facility] tablet 00:00: mouth [place] 00 daily. [facility] furosemide 0 Yes [id number] 40mg Take 2 [facility] 20 mg 2-16 02 tablets by [facility] tablet 00:00: mouth [place] 00 daily. [facility] furosemide 2021-0 Yes [id number] 40mg Take 2 [facility] 20 mg 2-16 02 tablets by [facility] tablet 00:00: mouth [place] 00 daily. [facility] furosemide 2021-0 Yes [id number] 40mg Take 2 [facility] 20 mg 2-16 02 tablets by [facility] tablet 00:00: mouth [place] 00 daily. [facility] furosemide 2021-0 Yes [id number] 40mg Take 2 [facility] 20 mg 2-16 02 tablets by [facility] tablet 00:00: mouth [place] 00 daily. [facility] furosemide 2021-0 Yes [id number] 40mg Take 2 [facility] 20 mg 2-16 02 tablets by [facility] tablet 00:00: mouth [place] 00 daily. [facility] furosemide 2021-0 Yes [id number] 40mg Take 2 [facility] 20 mg 2-16 02 tablets by [facility] tablet 00:00: mouth [place] 00 daily. [facility] furosemide 2021-0 Yes [id number] 40mg Take 2 [facility] 20 mg 2-16 02 tablets by [facility] tablet 00:00: mouth [place] 00 daily. [facility] furosemide 2021-0 Yes [id number] 40mg Take 2 [facility] 20 mg 2-16 02 tablets by [facility] tablet 00:00: mouth [place] 00 daily. [facility] furosemide 2021-0 Yes [id number] 40mg Take 2 [facility] 20 mg 2-16 02 tablets by [facility] tablet 00:00: mouth [place] 00 daily. [facility] furosemide 2021-0 Yes [id number] 40mg Take 2 [facility] 20 mg 2-16 02 tablets by [facility] tablet 00:00: mouth [place] 00 daily. [facility] furosemide 2021-0 Yes [id number] 40mg Take 2 [facility] 20 mg 2-16 02 tablets by [facility] tablet 00:00: mouth [place] 00 daily. [facility] furosemide 2021-0 Yes [id number] 40mg Take 2 [facility] 20 mg 2-16 02 tablets by [facility] tablet 00:00: mouth [place] 00 daily. [facility] furosemide 2021-0 Yes [id number] 40mg Take 2 [facility] 20 mg 2-16 02 tablets by [facility] tablet 00:00: mouth [place] 00 daily. [facility] furosemide 2021-0 Yes [id number] 40mg Take 2 [facility] 20 mg 2-16 02 tablets by [facility] tablet 00:00: mouth [place] 00 daily. [facility] furosemide 2021-0 Yes [id number] 40mg Take 2 [facility] 20 mg 2-16 02 tablets by [facility] tablet 00:00: mouth [place] 00 daily. [facility] furosemide 2021-0 Yes [id number] 40mg Take 2 [facility] 20 mg 2-16 02 tablets by [facility] tablet 00:00: mouth [place] 00 daily. [facility] furosemide 2021-0 Yes [id number] 40mg Take 2 [facility] 20 mg 2-16 02 tablets by [facility] tablet 00:00: mouth [place] 00 daily. [facility] furosemide 0 Yes [id number] 40mg Take 2 [facility] 20 mg 2-16 02 tablets by [facility] tablet 00:00: mouth [place] 00 daily. [facility] furosemide 0 Yes [id number] 40mg Take 2 [facility] 20 mg 2-16 02 tablets by [facility] tablet 00:00: mouth [place] 00 daily. [facility] furosemide 0 Yes [id number] 40mg Take 2 [facility] 20 mg 2-16 02 tablets by [facility] tablet 00:00: mouth [place] 00 daily. [facility] furosemide 2021-0 Yes [id number] 40mg Take 2 [facility] 20 mg 2-16 02 tablets by [facility] tablet 00:00: mouth [place] 00 daily. [facility] furosemide 2021-0 Yes [id number] 40mg Take 2 [facility] 20 mg 2-16 02 tablets by [facility] tablet 00:00: mouth [place] 00 daily. [facility] furosemide 2021-0 Yes [id number] 40mg Take 2 [facility] 20 mg 2-16 02 tablets by [facility] tablet 00:00: mouth [place] 00 daily. [facility] furosemide 2021-0 Yes [id number] 40mg Take 2 [facility] 20 mg 2-16 02 tablets by [facility] tablet 00:00: mouth [place] 00 daily. [facility] furosemide 2021-0 Yes [id number] 40mg Take 2 [facility] 20 mg 2-16 02 tablets by [facility] tablet 00:00: mouth [place] 00 daily. [facility] furosemide 2021-0 Yes [id number] 40mg Take 2 [facility] 20 mg 2-16 02 tablets by [facility] tablet 00:00: mouth [place] 00 daily. [facility] furosemide 2021-0 Yes [id number] 40mg Take 2 [facility] 20 mg 2-16 02 tablets by [facility] tablet 00:00: mouth [place] 00 daily. [facility] furosemide 2021-0 Yes [id number] 40mg Take 2 [facility] 20 mg 2-16 02 tablets by [facility] tablet 00:00: mouth [place] 00 daily. [facility] furosemide 2021-0 Yes [id number] 40mg Take 2 [facility] 20 mg 2-16 02 tablets by [facility] tablet 00:00: mouth [place] 00 daily. [facility] furosemide 2021-0 Yes [id number] 40mg Take 2 [facility] 20 mg 2-16 02 tablets by [facility] tablet 00:00: mouth [place] 00 daily. [facility] furosemide 2021-0 Yes [id number] 40mg Take 2 [facility] 20 mg 2-16 02 tablets by [facility] tablet 00:00: mouth [place] 00 daily. [facility] furosemide 2021-0 Yes [id number] 40mg Take 2 [facility] 20 mg 2-16 02 tablets by [facility] tablet 00:00: mouth [place] 00 daily. [facility] furosemide 2021-0 Yes [id number] 40mg Take 2 [facility] 20 mg 2-16 02 tablets by [facility] tablet 00:00: mouth [place] 00 daily. [facility] furosemide 2021-0 Yes [id number] 40mg Take 2 [facility] 20 mg 2-16 02 tablets by [facility] tablet 00:00: mouth [place] 00 daily. [facility] furosemide 2021-0 Yes [id number] 40mg Take 2 [facility] 20 mg 2-16 02 tablets by [facility] tablet 00:00: mouth [place] 00 daily. [facility] furosemide 2021-0 Yes [id number] 40mg Take 2 [facility] 20 mg 2-16 02 tablets by [facility] tablet 00:00: mouth [place] 00 daily. [facility] furosemide 2021-0 Yes [id number] 40mg Take 2 [facility] 20 mg 2-16 02 tablets by [facility] tablet 00:00: mouth [place] 00 daily. [facility] furosemide 2021-0 Yes [id number] 40mg Take 2 [facility] 20 mg 2-16 02 tablets by [facility] tablet 00:00: mouth [place] 00 daily. [facility] furosemide 2021-0 Yes [id number] 40mg Take 2 [facility] 20 mg 2-16 02 tablets by [facility] tablet 00:00: mouth [place] 00 daily. [facility] furosemide Yes [id number] 40mg Take 2 [facility] 20 mg 2-16 02 tablets by [facility] tablet 00:00: mouth [place] 00 daily. [facility] furosemide Yes [id number] 40mg Take 2 [facility] 20 mg 2-16 02 tablets by [facility] tablet 00:00: mouth [place] 00 daily. [facility] furosemide 2022- No [id number] 40mg Take 2 [facility] 20 mg 2-16 -27 02 tablets by [facility] tablet 00:00: 00:00 mouth [place] 00 :00 daily. [facility] furosemide 2022- No [id number] 40mg Take 2 [facility] 20 mg 2-16 -27 02 tablets by [facility] tablet 00:00: 00:00 mouth [place] 00 :00 daily. [facility] furosemide 2022- No [id number] 40mg Take 2 [facility] 20 mg 2-16 02-27 02 tablets by [facility] of tablet 00:00: 00:00 mouth [place] 00 :00 daily. [facility] furosemide 2022- No [id number] 40mg Take 2 [facility] 20 mg 2-16 -27 02 tablets by [facility] of tablet 00:00: 00:00 mouth [place] 00 :00 daily. [facility] furosemide 2022- No [id number] 40mg Take 2 [facility] 20 mg 2-16 02-27 02 tablets by [facility] tablet 00:00: 00:00 mouth [place] 00 :00 daily. [facility] metoprolol 2020-04 Yes [id number] 25mg Take 1 [facility] tartrate 25 2-15 tablet by [facility] mg tablet 00:00: mouth 2 [place] 00 (two) Medical times Branch daily. metoprolol 2020-04 Yes [id number] 25mg Take 1 [facility] n[facility] tartrate 25 2-15 tablet by [facility] mg tablet 00:00: mouth 2 [place] 00 (two) Medical times Branch daily. metoprolol 2020-04 Yes [id number] 25mg Take 1 [facility] tartrate 25 2-15 tablet by [facility] mg tablet 00:00: mouth 2 [place] 00 (two) Medical times Branch daily. metoprolol 2020-04 Yes [id number] 25mg Take 1 [facility] tartrate 25 2-15 tablet by [facility] mg tablet 00:00: mouth (two) Medical times Branch daily. metoprolol 2020-04 Yes [id number] 25mg Take 1 [facility] tartrate 25 2-15 tablet by [facility] mg tablet 00:00: mouth (two) Medical times Branch daily. metoprolol 2020-04 Yes [id number] 25mg Take 1 [facility] tartrate 25 2-15 tablet by [facility] of mg tablet 00:00: mouth (two) Medical times Branch daily. metoprolol 2020-04 Yes [id number] 25mg Take 1 [facility] tartrate 25 2-15 tablet by [facility] of mg tablet 00:00: mouth (two) Medical times Branch daily. metoprolol 2020-04 Yes [id number] 25mg Take 1 [facility] tartrate 25 2-15 tablet by [facility] mg tablet 00:00: mouth (two) Medical times Branch daily. metoprolol 2020-04 Yes [id number] 25mg Take 1 [facility] tartrate 25 2-15 tablet by [facility] mg tablet 00:00: mouth (two) Medical times Branch daily. metoprolol 2020-04 Yes [id number] 25mg Take 1 [facility] tartrate 25 2-15 tablet by [facility] of mg tablet 00:00: mouth (two) Medical times Branch daily. metoprolol 2020-04 Yes [id number] 25mg Take 1 [facility] n[facility] tartrate 25 2-15 tablet by [facility] mg tablet 00:00: mouth (two) Medical times Branch daily. metoprolol 2020-04 Yes [id number] 25mg Take 1 [facility] tartrate 25 2-15 tablet by [facility] mg tablet 00:00: mouth (two) Medical times Branch daily. metoprolol 2020-04 Yes [id number] 25mg Take 1 [facility] n[facility] tartrate 25 2-15 tablet by [facility] of mg tablet 00:00: mouth (two) Medical times Branch daily. metoprolol 2020-04 Yes [id number] 25mg Take 1 [facility]ivers tartrate 25 2-15 tablet by [facility] of mg tablet 00:00: mouth (two) Medical times Branch daily. metoprolol 2020-04 Yes [id number] 25mg Take 1 [facility] nivers tartrate 25 2-15 tablet by [facility] of mg tablet 00:00: mouth (two) Medical times Branch daily. metoprolol 2020-04 Yes [id number] 25mg Take 1 [facility]ivers tartrate 25 2-15 tablet by [facility] of mg tablet 00:00: mouth (two) Medical times Branch daily. metoprolol 2020-04 Yes [id number] 25mg Take 1 [facility] nivers tartrate 25 2-15 tablet by [facility] of mg tablet 00:00: mouth (two) Medical times Branch daily. metoprolol 2020-04 Yes [id number] 25mg Take 1 [facility] nivers tartrate 25 2-15 tablet by [facility] of mg tablet 00:00: mouth (two) Medical times Branch daily. metoprolol 2020-04 Yes [id number] 25mg Take 1 [facility] nivers tartrate 25 2-15 tablet by [facility] of mg tablet 00:00: mouth (two) Medical times Branch daily. metoprolol 2020-04 Yes [id number] 25mg Take 1 [facility] tartrate 25 2-15 tablet by [facility] of mg tablet 00:00: mouth (two) Medical times Branch daily. metoprolol 2020-04 Yes [id number] 25mg Take 1 [facility] nivers tartrate 25 2-15 tablet by [facility] of mg tablet 00:00: mouth (two) Medical times Branch daily. metoprolol 2020-04 Yes [id number] 25mg Take 1 [facility] nivers tartrate 25 2-15 tablet by [facility] of mg tablet 00:00: mouth (two) Medical times Branch daily. metoprolol 2020-04 Yes [id number] 25mg Take 1 [facility] nivers tartrate 25 2-15 tablet by [facility] of mg tablet 00:00: mouth (two) Medical times Branch daily. metoprolol 2020-04 Yes [id number] 25mg Take 1 [facility] nivers tartrate 25 2-15 tablet by [facility] of mg tablet 00:00: mouth (two) Medical times Branch daily. metoprolol 2020-04 Yes [id number] 25mg Take 1 [facility] nivers tartrate 25 2-15 tablet by [facility] of mg tablet 00:00: mouth (two) Medical times Branch daily. metoprolol 2020-04 Yes [id number] 25mg Take 1 [facility] nivers tartrate 25 2-15 tablet by [facility] of mg tablet 00:00: mouth 2 [place] 00 (two) Medical times Branch daily. metoprolol 2020-04 Yes [id number] 25mg Take 1 [facility] nivers tartrate 25 2-15 tablet by [facility]y of mg tablet 00:00: mouth 2 (two) Medical times Branch daily. metoprolol 2020-04 Yes [id number] 25mg Take 1 [facility]ivers tartrate 25 2-15 tablet by [facility] of mg tablet 00:00: mouth 2 (two) Medical times Branch daily. metoprolol 2020-04 Yes [id number] 25mg Take 1 [facility]ivers tartrate 25 2-15 tablet by [facility] of mg tablet 00:00: mouth 2 (two) Medical times Branch daily. metoprolol 2020-04 202- No [id number] 25mg Take 1 [facility] tartrate 25 2-15 12-19 tablet by it y [facility] mg tablet 00:00: 00:00 mouth 2 [place] 00 :[place] (two) Medical times Branch daily. polyethylen 2020-04 Yes [id number] 17g Take 1 [facility] e glycol 0-29 Packet by ity of 3350 17 00:00: mouth [place] gram powder 00 daily. Medica l Branch polyethylen 2020-04 Yes [id number] 17g Take 1 [facility] e glycol 0-29 Packet by ity of 3350 17 00:00: mouth [place] gram powder 00 daily. Medica l Branch polyethylen 2020-04 Yes [id number] 17g Take 1 [facility] e glycol 0-29 Packet by ity of 3350 17 00:00: mouth [place] gram powder 00 daily. Medica l Branch polyethylen 2020-04 Yes [id number] 17g Take 1 [facility] e glycol 0-29 Packet by ity of 3350 17 00:00: mouth [place] gram powder 00 daily. Medica l Branch polyethylen 2020-04 Yes [id number] 17g Take 1 [facility] e glycol 0-29 Packet by ity of 3350 17 00:00: mouth [place] gram powder 00 daily. Medica l Branch polyethylen 2020-04 Yes [id number] 17g Take 1 [facility] e glycol 0-29 Packet by ity of 3350 17 00:00: mouth [place] gram powder 00 daily. Medica l Branch polyethylen 2020-04 Yes [id number] 17g Take 1 [facility] e glycol 0-29 Packet by ity of 3350 17 00:00: mouth [place] gram powder 00 daily. Medica l Branch polyethylen 2020-04 Yes [id number] 17g Take 1 [facility] e glycol 0-29 Packet by ity of 3350 17 00:00: mouth [place] gram powder 00 daily. Medica l Branch polyethylen 2020-04 Yes [id number] 17g Take 1 [facility] e glycol 0-29 Packet by ity of 3350 17 00:00: mouth [place] gram powder 00 daily. Medica l Branch polyethylen 2020-04 Yes [id number] 17g Take 1 [facility] e glycol 0-29 Packet by ity of 3350 17 00:00: mouth [place] gram powder 00 daily. Medica l Branch polyethylen 2020-04 Yes [id number] 17g Take 1 [facility] e glycol 0-29 Packet by ity of 3350 17 00:00: mouth [place] gram powder 00 daily. Medica l Branch polyethylen 2020-04 Yes [id number] 17g Take 1 [facility] e glycol 0-29 Packet by ity of 3350 17 00:00: mouth [place] gram powder 00 daily. Medica l Branch polyethylen 2020-04 Yes [id number] 17g Take 1 [facility] e glycol 0-29 Packet by ity of 3350 17 00:00: mouth [place] gram powder 00 daily. Medica l Branch polyethylen 2020-04 Yes [id number] 17g Take 1 [facility] e glycol 0-29 Packet by ity of 3350 17 00:00: mouth [place] gram powder 00 daily. Medica l Branch polyethylen 2020-04 Yes [id number] 17g Take 1 [facility] e glycol 0-29 Packet by ity of 3350 17 00:00: mouth [place] gram powder 00 daily. Medica l Branch polyethylen 2020-04 Yes [id number] 17g Take 1 [facility] e glycol 0-29 Packet by ity of 3350 17 00:00: mouth [place] gram powder 00 daily. Medica l Branch polyethylen 2020-04 Yes [id number] 17g Take 1 [facility] e glycol 0-29 Packet by ity of 3350 17 00:00: mouth [place] gram powder 00 daily. Medica l Branch polyethylen 2020-04 Yes [id number] 17g Take 1 [facility] e glycol 0-29 Packet by ity of 3350 17 00:00: mouth [place] gram powder 00 daily. Medica l Branch polyethylen 2020-04 Yes [id number] 17g Take 1 [facility] e glycol 0-29 Packet by ity of 3350 17 00:00: mouth [place] gram powder 00 daily. Medica l Branch polyethylen 2020-04 Yes [id number] 17g Take 1 [facility] e glycol 0-29 Packet by ity of 3350 17 00:00: mouth [place] gram powder 00 daily. Medica l Branch polyethylen 2020-04 Yes [id number] 17g Take 1 [facility] e glycol 0-29 Packet by ity of 3350 17 00:00: mouth [place] gram powder 00 daily. Medica l Branch polyethylen 2020-04 Yes [id number] 17g Take 1 [facility] e glycol 0-29 Packet by ity of 3350 17 00:00: mouth [place] gram powder 00 daily. Medica l Branch polyethylen 2020-04 Yes [id number] 17g Take 1 [facility] e glycol 0-29 Packet by ity of 3350 17 00:00: mouth [place] gram powder 00 daily. Medica l Branch polyethylen 2020-04 Yes [id number] 17g Take 1 [facility] e glycol 0-29 Packet by ity of 3350 17 00:00: mouth [place] gram powder 00 daily. Medica l [facility] polyethylen 2020-04 Yes [id number] 17g Take 1 [facility] e glycol 0-29 Packet by ity of 3350 17 00:00: mouth [place] gram powder 00 daily. Medica l [facility] polyethylen 2020-04 Yes [id number] 17g Take 1 [facility] e glycol 0-29 Packet by ity of 3350 17 00:00: mouth [place] gram powder 00 daily. Medica l [facility] polyethylen 2020-04 Yes [id number] 17g Take 1 [facility] e glycol 0-29 Packet by ity of 3350 17 00:00: mouth [place] gram powder 00 daily. Medica l [facility] polyethylen 2020-04 Yes [id number] 17g Take 1 [facility] e glycol 0-29 Packet by ity of 3350 17 00:00: mouth [place] gram powder 00 daily. Medica l [facility] polyethylen 2020-04 Yes [id number] 17g Take 1 [facility] e glycol 0-29 Packet by ity of 3350 17 00:00: mouth [place] gram powder 00 daily. Medica l [facility] polyethylen 2020-04 Yes [id number] 17g Take 1 [facility] e glycol 0-29 Packet by ity of 3350 17 00:00: mouth [place] gram powder 00 daily. Medica l [facility] polyethylen 2020-04 Yes [id number] 17g Take 1 [facility] e glycol 0-29 Packet by ity of 3350 17 00:00: mouth [place] gram powder 00 daily. [facility]ica [facility] polyethylen 2020-04 Yes [id number] 17g Take 1 [facility] e glycol 0-29 Packet by ity of 3350 17 00:00: mouth [place] gram powder 00 daily. Medica l [facility] polyethylen 2020-04 Yes [id number] 17g Take 1 [facility] e glycol 0-29 Packet by ity of 3350 17 00:00: mouth [place] gram powder 00 daily. Med[facility] polyethylen 2020-04 Yes [id number] 17g Take 1 [facility] e glycol 0-29 Packet by ity of 3350 17 00:00: mouth [place] gram powder 00 daily. Med[facility] polyethylen 2020-04 Yes [id number] 17g Take 1 [facility] e glycol 0-29 Packet by ity of 3350 17 00:00: mouth [place] gram powder 00 daily. Med[facility] l [facility] polyethylen 2020-04 Yes [id number] 17g Take 1 [facility] e glycol 0-29 Packet by ity of 3350 17 00:00: mouth [place] gram powder 00 daily. Med[facility] l [facility] polyethylen 2020-04 Yes [id number] 17g Take 1 [facility] e glycol 0-29 Packet by ity of 3350 17 00:00: mouth [place] gram powder 00 daily. [facility] l [facility] polyethylen 2020-04 Yes [id number] 17g Take 1 [facility] e glycol 0-29 Packet by ity of 3350 17 00:00: mouth [place] gram powder 00 daily. [facility] l [facility] polyethylen 2020-04 Yes [id number] 17g Take 1 [facility] e glycol 0-29 Packet by ity of 3350 17 00:00: mouth [place] gram powder 00 daily. [facility] l [facility] polyethylen 2020-04 Yes [id number] 17g Take 1 [facility] e glycol 0-29 Packet by ity of 3350 17 00:00: mouth [place] gram powder 00 daily. [facility] l [facility] polyethylen 2020-04 Yes [id number] 17g Take 1 [facility] e glycol 0-29 Packet by ity of 3350 17 00:00: mouth [place] gram powder 00 daily. Medica l Branch polyethylen 2020-04- No [id number] 17g Take 1 [facility] e glycol 0-29 02-22 Packet by ity o f 3350 17 00:00: 00:00 mouth [place] gram powder 00 :00 daily. Medica l Branch polyethylen 2020-04- No [id number] 17g Take 1 [facility] e glycol 0-29 02-22 Packet by ity o f 3350 17 00:00: 00:00 mouth [place] gram powder 00 :00 daily. Medica l Branch polyethylen 2020-04- No [id number] 17g Take 1 [facility] e glycol 0-29 02-22 Packet by ity o f 3350 17 00:00: 00:00 mouth [place] gram powder 00 :00 daily. Medica l Branch docusate 2020-04 Yes [id number] 100mg Take 1 U nivers 100 mg 0-28 capsule by ity of capsule 00:00: mouth (two) Medical times Branch daily. docusate 2020-04 Yes [id number] 100mg Take 1 [facility] nivers 100 mg 0-28 capsule by ity of capsule 00:00: mouth (two) Medical times Branch daily. docusate 2020-04 Yes [id number] 100mg Take 1 [facility] nivers 100 mg 0-28 capsule by ity of capsule 00:00: mouth 2 (two) Medical times Branch daily. docusate 2020-04 Yes [id number] 100mg Take 1 [facility] nivers 100 mg 0-28 capsule by ity of capsule 00:00: mouth 2 (two) Medical times Branch daily. docusate 2020-04 Yes [id number] 100mg Take 1 [facility] nivers 100 mg 0-28 capsule by ity of capsule 00:00: mouth 2 (two) Medical times Branch daily. docusate 2020-04 Yes [id number] 100mg Take 1 [facility] nivers 100 mg 0-28 capsule by ity of capsule 00:00: mouth (two) Medical times Branch daily. docusate 2020-04 Yes [id number] 100mg Take 1 [facility] nivers 100 mg 0-28 capsule by ity of capsule 00:00: mouth (two) Medical times Branch daily. docusate 2020-04 Yes [id number] 100mg Take 1 [facility] nivers 100 mg 0-28 capsule by ity of capsule 00:00: mouth (two) Medical times Branch daily. docusate 2020-04 Yes [id number] 100mg Take 1 [facility] nivers 100 mg 0-28 capsule by ity of capsule 00:00: mouth (two) Medical times Branch daily. docusate 2020-04 Yes [id number] 100mg Take 1 [facility] nivers 100 mg 0-28 capsule by ity of capsule 00:00: mouth (two) Medical times Branch daily. docusate 2020-04 Yes [id number] 100mg Take 1 [facility] nivers 100 mg 0-28 capsule by ity of capsule 00:00: mouth (two) Medical times Branch daily. docusate 2020-04 Yes [id number] 100mg Take 1 [facility] nivers 100 mg 0-28 capsule by ity of capsule 00:00: mouth (two) Medical times Branch daily. docusate 2020-04 Yes [id number] 100mg Take 1 [facility] nivers 100 mg 0-28 capsule by ity of capsule 00:00: mouth (two) Medical times Branch daily. docusate 2020-04 Yes [id number] 100mg Take 1 [facility] nivers 100 mg 0-28 capsule by ity of capsule 00:00: mouth (two) Medical times Branch daily. docusate 2020-04 Yes [id number] 100mg Take 1 [facility] nivers 100 mg 0-28 capsule by ity of capsule 00:00: mouth (two) Medical times Branch daily. docusate 2020-04 Yes [id number] 100mg Take 1 [facility]ivers 100 mg 0-28 capsule by ity of capsule 00:00: mouth (two) Medical times Branch daily. docusate 2020-04 Yes [id number] 100mg Take 1 [facility] nivers 100 mg 0-28 capsule by ity of capsule 00:00: mouth 2 (two) Medical times Branch daily. docusate 2020-04 Yes [id number] 100mg Take 1 [facility] nivers 100 mg 0-28 capsule by ity of capsule 00:00: mouth 2 (two) Medical times Branch daily. docusate 2020-04 Yes [id number] 100mg Take 1 [facility] nivers 100 mg 0-28 capsule by ity of capsule 00:00: mouth 2 (two) Medical times Branch daily. docusate 2020-04 Yes [id number] 100mg Take 1 [facility]ivers 100 mg 0-28 capsule by ity of capsule 00:00: mouth (two) Medical times Branch daily. docusate 2020-04 Yes [id number] 100mg Take 1 [facility]ivers 100 mg 0-28 capsule by ity of capsule 00:00: mouth (two) Medical times Branch daily. docusate 2020-04 Yes [id number] 100mg Take 1 [facility]ivers 100 mg 0-28 capsule by ity of capsule 00:00: mouth (two) Medical times Branch daily. docusate 2020-04 Yes [id number] 100mg Take 1 [facility]ivers 100 mg 0-28 capsule by [facility]y of capsule 00:00: mouth (two) Medical times Branch daily. docusate 2020-04 Yes [id number] 100mg Take 1 [facility] 100 mg 0-28 capsule by [facility]y of capsule 00:00: mouth (two) Medical times Branch daily. docusate 2020-04 Yes [id number] 100mg Take 1 [facility] nivers 100 mg 0-28 capsule by ity of capsule 00:00: mouth (two) Medical times Branch daily. docusate 2020-04 Yes [id number] 100mg Take 1 [facility] nivers 100 mg 0-28 capsule by ity of capsule 00:00: mouth 2 (two) Medical times Branch daily. docusate 2020-04 Yes [id number] 100mg Take 1 [facility] nivers 100 mg 0-28 capsule by ity of capsule 00:00: mouth 2 (two) Medical times Branch daily. docusate 2020-04 Yes [id number] 100mg Take 1 [facility] nivers 100 mg 0-28 capsule by ity of capsule 00:00: mouth (two) Medical times Branch daily. docusate 2020-04 Yes [id number] 100mg Take 1 [facility] nivers 100 mg 0-28 capsule by ity of capsule 00:00: mouth [place] (two) Medical times Branch daily. docusate 2020-04 Yes [id number] 100mg Take 1 [facility] nivers 100 mg 0-28 capsule by ity of capsule 00:00: mouth (two) Medical times Branch daily. docusate 2020-04 Yes [id number] 100mg Take 1 [facility] nivers 100 mg 0-28 capsule by ity of capsule 00:00: mouth [place] (two) Medical times Branch daily. docusate 2020-04 Yes [id number] 100mg Take 1 [facility]ivers 100 mg 0-28 capsule by [facility]y of capsule 00:00: mouth [place] (two) Medical times Branch daily. docusate 2020-04 Yes [id number] 100mg Take 1 [facility]ivers 100 mg 0-28 capsule by [facility]y of capsule 00:00: mouth [place] (two) Medical times Branch daily. docusate 2020-04 Yes [id number] 100mg Take 1 [facility] 100 mg 0-28 capsule by [facility]y of capsule 00:00: mouth [place] (two) Medical times Branch daily. docusate 2020-04 Yes [id number] 100mg Take 1 [facility] nivers 100 mg 0-28 capsule by ity of capsule 00:00: mouth [place] (two) Medical times Branch daily. docusate 2020-04 Yes [id number] 100mg Take 1 [facility] nivers 100 mg 0-28 capsule by ity of capsule 00:00: mouth [place] (two) [facility] times [facility] daily. docusate 2020-04 Yes [id number] 100mg Take 1 [facility] 100 mg 0-28 capsule by [facility]y of capsule 00:00: mouth [place] (two) [facility] times [facility] daily. docusate 2020-04 Yes [id number] 100mg Take 1 [facility] 100 mg 0-28 capsule by [facility]y of capsule 00:00: mouth 2 [place] 00 (two) [facility] times [facility] daily. docusate 2020-04 Yes [id number] 100mg Take 1 [facility] 100 mg 0-28 capsule by [facility]y of capsule 00:00: mouth 2 [place] 00 (two) Medical times [facility] daily. docusate 2020-04 Yes [id number] 100mg Take 1 [facility] 100 mg 0-28 capsule by ity of capsule 00:00: mouth 2 [place] 00 (two) Medical times [facility] daily. docusate 2020-04 Yes [id number] 100mg Take 1 [facility] 100 mg 0-28 capsule by [facility]y of capsule 00:00: mouth 2 [place] 00 (two) Medical times [facility] daily. docusate 2020-04- No [id number] 100mg Take 1 [facility] 100 mg 0-28 02-22 capsule by ity of capsule 00:00: 00:00 mouth 2 [place] 00 :00 (two) Medical times [facility] daily. docusate 2020-04- No [id number] 100mg Take 1 [facility] 100 mg 0-28 02-22 capsule by ity of capsule 00:00: 00:00 mouth 2 [place] 00 :00 (two) Medical times [facility] daily. docusate 2020-04- No [id number] 100mg Take 1 [facility] 100 mg 0-28 02-22 capsule by ity of capsule 00:00: 00:00 mouth 2 [place] 00 :00 (two) Medical times [facility] daily. gabapentin 2017-0 Yes Take by [facility] 300 mg 4-21 mouth ity of capsule 00:00: daily. [place] [facility] lidocaine 5 2017-0 Yes Un[facility] % (700 4-21 ity of mg/patch) 00:00: [place] patch [facility] gabapentin 2017-0 Yes Take by [facility] 300 mg 4-21 mouth ity of capsule 00:00: daily. [place] [facility] lidocaine 5 2017-0 Yes Univer [facility] % (700 4-21 ity of mg/patch) 00:00: [place] patch [facility] gabapentin 2017-0 Yes Take by [facility] 300 mg 4-21 mouth ity of capsule 00:00: daily. [place] [facility] lidocaine 5 2017-0 Yes Univer [...] 4-21 mouth ity of capsule 00:00: daily. [place] [facility] lidocaine 5 2017-0 Yes Univer s % (700 4-21 ity of mg/patch) 00:00: [place] patch [facility] gabapentin 2017-0 Yes Take by [facility] 300 mg 4-21 mouth ity of capsule 00:00: daily. [place] [facility] lidocaine 5 2017-0 Yes Univer [...] 4-21 mouth ity of capsule 00:00: daily. [place] [facility] lidocaine 5 2017-0 Yes Univer [facility] % (700 4-21 ity of mg/patch) 00:00: [place] patch [facility] gabapentin 2017-0 Yes Take by [facility] 300 mg 4-21 mouth ity of capsule 00:00: daily. [place] [facility] lidocaine 5 2017-0 Yes Univer [...] 4-21 mouth ity of capsule 00:00: daily. [place] [facility] lidocaine 5 2017-0 Yes Univer [...] 4-21 mouth ity of capsule 00:00: daily. [place] [facility] lidocaine 5 2017-0 Yes [facility] % (700 4-21 ity of mg/patch) 00:00: [place] patch 00 [facility] gabapentin 2017-0 Yes Take by [facility] 300 mg 4-21 mouth ity of capsule 00:00: daily. [place] [facility] lidocaine 5 2017-0 Yes [facility] % (700 4-21 ity of mg/patch) 00:00: [place] patch 00 [facility] gabapentin 2017-0 Yes Take by [facility] 300 mg 4-21 mouth ity of capsule 00:00: daily. [place] [facility] lidocaine 5 2017-0 Yes Univer [facility] % (700 4-21 ity of mg/patch) 00:00: [place] patch 00 [facility] gabapentin 2017-0 Yes Take by [facility] 300 mg 4-21 mouth ity of capsule 00:00: daily. [place] [facility] lidocaine 5 2017-0 Yes Univer [facility] % (700 4-21 ity of mg/patch) 00:00: [place] patch 00 [facility] gabapentin 2017-0 Yes Take by [facility] 300 mg 4-21 mouth ity of capsule 00:00: daily. [place] [facility] lidocaine 5 2017-0 Yes [facility] % (700 4-21 ity of mg/patch) 00:00: [place] patch 00 [facility] gabapentin 2017-0 Yes Take by [facility] 300 mg 4-21 mouth ity of capsule 00:00: daily. [place] [facility] lidocaine 5 2017-0 Yes [facility] % (700 4-21 ity of mg/patch) 00:00: [place] patch 00 [facility] gabapentin 2017-0 Yes Take by [facility] 300 mg 4-21 mouth ity of capsule 00:00: daily. [place] [facility] lidocaine 5 2017-0 Yes [facility] % (700 4-21 ity of mg/patch) 00:00: [place] patch [facility] gabapentin 2017-0 Yes Take by [facility] 300 mg 4-21 mouth ity of capsule 00:00: daily. [place] [facility] lidocaine 5 2017-0 Yes Univer [facility] % (700 4-21 ity of mg/patch) 00:00: [place] patch 00 [facility] gabapentin 2017-0 Yes Take by [facility] 300 mg 4-21 mouth ity of capsule 00:00: daily. [place] [facility] lidocaine 5 2017-0 Yes Univer [...] 4-21 mouth ity of capsule 00:00: daily. [place] [facility] lidocaine 5 2017-0 Yes [facility] % (700 4-21 ity of mg/patch) 00:00: [place] patch [facility] gabapentin 2017-0 Yes Take by [facility] 300 mg 4-21 mouth ity of capsule 00:00: daily. [place] [facility] lidocaine 5 2017-0 Yes Univer [...] 4-21 mouth ity of capsule 00:00: daily. [place] [facility] lidocaine 5 2017-0 Yes [facility] % (700 4-21 ity of mg/patch) 00:00: [place] patch [facility] gabapentin 2017-0 Yes Take by [facility] 300 mg 4-21 mouth ity of capsule 00:00: daily. [place] [facility] lidocaine 5 2017-0 Yes Univer [...] 4-21 mouth ity of capsule 00:00: daily. [place] [facility] lidocaine 5 2017-0 Yes Univer [...] 4-21 mouth ity of capsule 00:00: daily. [place] [facility] lidocaine 5 2017-0 Yes [facility] % (700 4-21 ity of mg/patch) 00:00: [place] patch 00 [facility] gabapentin 2017-0 Yes Take by [facility] 300 mg 4-21 mouth ity of capsule 00:00: daily. [place] [facility] lidocaine 5 2017-0 Yes Univer s % (700 4-21 ity of mg/patch) 00:00: [place] patch 00 [facility] gabapentin 2017-0 Yes Take by [facility] 300 mg 4-21 mouth ity of capsule 00:00: daily. [place] [facility] lidocaine 5 2017-0 Yes Univer [facility] % (700 4-21 ity of mg/patch) 00:00: [place] patch 00 [facility] gabapentin 2017-0 Yes Take by [facility] 300 mg 4-21 mouth ity of capsule 00:00: daily. [place] [facility] lidocaine 5 2017-0 Yes Univer [facility] % (700 4-21 ity of mg/patch) 00:00: [place] patch 00 [facility] gabapentin 2017-0 Yes Take by [facility] 300 mg 4-21 mouth ity of capsule 00:00: daily. [place] [facility] lidocaine 5 2017-0 Yes [facility] % (700 4-21 ity of mg/patch) 00:00: [place] patch 00 [facility] gabapentin 2017-0 Yes Take by [facility] 300 mg 4-21 mouth ity of capsule 00:00: daily. [place] [facility] lidocaine 5 2017-0 Yes Univer [facility] % (700 4-21 ity of mg/patch) 00:00: [place] patch 00 [facility] gabapentin 2017-0 Yes Take by [facility] 300 mg 4-21 mouth ity of capsule 00:00: daily. [place] [facility] lidocaine 5 2017-0 Yes [facility] % (700 4-21 ity of mg/patch) 00:00: [place] patch [facility] gabapentin 2017-0 Yes Take by [facility] 300 mg 4-21 mouth ity of capsule 00:00: daily. [place] [facility] lidocaine 5 2017-0 Yes Univer [facility] % (700 4-21 ity of mg/patch) 00:00: [place] patch 00 [facility] gabapentin 2017-0 Yes Take by [facility] 300 mg 4-21 mouth ity of capsule 00:00: daily. [place] [facility] lidocaine 5 2017-0 Yes Univer [...] 4-21 mouth ity of capsule 00:00: daily. [place] [facility] lidocaine 5 2017-0 Yes [facility] % (700 4-21 ity of mg/patch) 00:00: [place] patch [facility] gabapentin 2017-0 Yes Take by [facility] 300 mg 4-21 mouth ity of capsule 00:00: daily. [place] [facility] lidocaine 5 2017-0 Yes Univer [...] 4-21 mouth ity of capsule 00:00: daily. [place] [facility] lidocaine 5 2017-0 Yes [facility] % (700 4-21 ity of mg/patch) 00:00: [place] patch 00 [facility] gabapentin 2017-0 Yes Take by [facility] 300 mg 4-21 mouth ity of capsule 00:00: daily. [place] [facility] lidocaine 5 2017-0 Yes [facility] % (700 4-21 ity of mg/patch) 00:00: [place] patch 00 [facility] gabapentin 2017-0 Yes Take by [facility] 300 mg 4-21 mouth ity of capsule 00:00: daily. [place] [facility] lidocaine 5 2017-0 Yes Un[facility] s % (700 4-21 ity of mg/patch) 00:00: [place] patch 00 [facility] gabapentin 2017-0 Yes Take by [facility] 300 mg 4-21 mouth ity of capsule 00:00: daily. [place] [facility] lidocaine 5 2017-0 Yes Univer s % (700 4-21 ity of mg/patch) 00:00: [place] patch 00 [facility] gabapentin 2017-0 Yes Take by [facility] 300 mg 4-21 mouth ity of capsule 00:00: daily. [place] [facility] lidocaine 5 2017-0 Yes [facility] % (700 4-21 ity of mg/patch) 00:00: [place] patch 00 [facility] gabapentin 2017-0 Yes Take by [facility] 300 mg 4-21 mouth ity of capsule 00:00: daily. [place] [facility] lidocaine 5 2017-0 Yes Univer s % (700 4-21 ity of mg/patch) 00:00: [place] patch 00 [facility] gabapentin 2017-0 Yes Take by [facility] 300 mg 4-21 mouth ity of capsule 00:00: daily. [place] [facility] lidocaine 5 2017-0 Yes Un[facility] % (700 4-21 ity of mg/patch) 00:00: [place] patch [facility] gabapentin 2017-0 Yes Take by [facility] 300 mg 4-21 mouth ity of capsule 00:00: daily. [place] [facility] lidocaine 5 2017-0 Yes Univer s % (700 4-21 ity of mg/patch) 00:00: [place] patch 00 [facility] gabapentin 2017-0 Yes Take by [facility] 300 mg 4-21 mouth ity of capsule 00:00: daily. [place] [facility] lidocaine 5 2017-0 Yes Univer [...] 4-21 mouth ity of capsule 00:00: daily. [place] [facility] lidocaine 5 2017-0 Yes Un[facility] s % (700 4-21 ity of mg/patch) 00:00: [place] patch [facility] gabapentin 2017-0 Yes Take by [facility] 300 mg 4-21 mouth ity of capsule 00:00: daily. [place] [facility] lidocaine 5 2017-0 Yes Univer [...] 4-21 mouth ity of capsule 00:00: daily. [place] [facility] lidocaine 5 2017-0 Yes Univer s % (700 4-21 ity of mg/patch) 00:00: [place] patch [facility] gabapentin 2017-0 Yes Take by [facility] 300 mg 4-21 mouth ity of capsule 00:00: daily. [place] [facility] lidocaine 5 2017-0 Yes Univer [...] 4-21 mouth ity of capsule 00:00: daily. [place] [facility] lidocaine 5 2017-0 Yes Univer [...] 4-21 mouth ity of capsule 00:00: daily. [place] [facility] lidocaine 5 2017-0 Yes Univer s % (700 4-21 ity of mg/patch) 00:00: [place] patch 00 [facility] gabapentin 2017-0 Yes Take by [facility] 300 mg 4-21 mouth ity of capsule 00:00: daily. [place] [facility] lidocaine 5 2017-0 Yes Univer s % (700 4-21 ity of mg/patch) 00:00: [place] patch 00 [facility] gabapentin 2017-0 Yes Take by [facility] 300 mg 4-21 mouth ity of capsule 00:00: daily. [place] [facility] lidocaine 5 2017-0 Yes Univer s % (700 4-21 ity of mg/patch) 00:00: [place] patch 00 [facility] gabapentin 2017-0 Yes Take by [facility] 300 mg 4-21 mouth ity of capsule 00:00: daily. [place] [facility] lidocaine 5 2017-0 Yes Univer s % (700 4-21 ity of mg/patch) 00:00: [place] patch 00 [facility] gabapentin 2017-0 Yes Take by [facility] 300 mg 4-21 mouth ity of capsule 00:00: daily. [place] [facility] lidocaine 5 2017-0 Yes Univer s % (700 4-21 ity of mg/patch) 00:00: [place] patch 00 [facility] gabapentin 2017-0 Yes Take by [facility] 300 mg 4-21 mouth ity of capsule 00:00: daily. [place] [facility] lidocaine 5 2017-0 Yes Univer s % (700 4-21 ity of mg/patch) 00:00: [place] patch 00 [facility] gabapentin 2017-0 Yes Take by [facility] 300 mg 4-21 mouth ity of capsule 00:00: daily. [place] [facility] lidocaine 5 2017-0 Yes Univer s % (700 4-21 ity of mg/patch) 00:00: [place] patch [facility] gabapentin 2017-0 Yes Take by [facility] 300 mg 4-21 mouth ity of capsule 00:00: daily. [place] [facility] lidocaine 5 2017-0 Yes Univer s % (700 4-21 ity of mg/patch) 00:00: [place] patch 00 [facility] gabapentin 2017-0 Yes Take by [facility] 300 mg 4-21 mouth ity of capsule 00:00: daily. [place] [facility] lidocaine 5 2017-0 Yes Univer [...] 4-21 mouth ity of capsule 00:00: daily. [place] [facility] lidocaine 5 2017-0 Yes Univer s % (700 4-21 ity of mg/patch) 00:00: [place] patch [facility] gabapentin 2017-0 Yes Take by [facility] 300 mg 4-21 mouth ity of capsule 00:00: daily. [place] [facility] lidocaine 5 2017-0 Yes Univer [...] 4-21 mouth ity of capsule 00:00: daily. [place] [facility] lidocaine 5 2017-0 Yes Univer s % (700 4-21 ity of mg/patch) 00:00: [place] patch [facility] gabapentin 2017-0 Yes Take by [facility] 300 mg 4-21 mouth ity of capsule 00:00: daily. [place] [facility] lidocaine 5 2017-0 Yes Univer [...] 4-21 mouth ity of capsule 00:00: daily. [place] [facility] lidocaine 5 2017-0 Yes Univer [...] 4-21 mouth ity of capsule 00:00: daily. [place] [facility] lidocaine 5 2017-0 Yes Univer s % (700 4-21 ity of mg/patch) 00:00: [place] patch 00 [facility] gabapentin 2017-0 Yes Take by [facility] 300 mg 4-21 mouth ity of capsule 00:00: daily. [place] [facility] lidocaine 5 2017-0 Yes Univer s % (700 4-21 ity of mg/patch) 00:00: [place] patch 00 [facility] gabapentin 2017-0 Yes Take by [facility] 300 mg 4-21 mouth ity of capsule 00:00: daily. [place] [facility] lidocaine 5 2017-0 Yes Univer s % (700 4-21 ity of mg/patch) 00:00: [place] patch 00 [facility] gabapentin 2017-0 Yes Take by [facility] 300 mg 4-21 mouth ity of capsule 00:00: daily. [place] [facility] lidocaine 5 2017-0 Yes Univer s % (700 4-21 ity of mg/patch) 00:00: [place] patch 00 [facility] gabapentin 2017-0 Yes Take by [facility] 300 mg 4-21 mouth ity of capsule 00:00: daily. [place] [facility] lidocaine 5 2017-0 Yes Univer s % (700 4-21 ity of mg/patch) 00:00: [place] patch 00 [facility] gabapentin 2017-0 Yes Take by [facility] 300 mg 4-21 mouth ity of capsule 00:00: daily. [place] [facility] lidocaine 5 2017-0 Yes Univer s % (700 4-21 ity of mg/patch) 00:00: [place] patch 00 [facility] gabapentin 2017-0 Yes Take by [facility] 300 mg 4-21 mouth ity of capsule 00:00: daily. [place] [facility] lidocaine 5 2017-0 Yes Univer s % (700 4-21 ity of mg/patch) 00:00: [place] patch [facility] gabapentin 2017-0 Yes Take by [facility] 300 mg 4-21 mouth ity of capsule 00:00: daily. [place] [facility] lidocaine 5 2017-0 Yes Univer s % (700 4-21 ity of mg/patch) 00:00: [place] patch 00 [facility] gabapentin 2017-0 Yes Take by [facility] 300 mg 4-21 mouth ity of capsule 00:00: daily. [place] [facility] lidocaine 5 2017-0 Yes Univer s % (700 4-21 ity of mg/patch) 00:00: [place] patch 00 [facility] gabapentin 2017-0 Yes Take by [facility] 300 mg 4-21 mouth ity of capsule 00:00: daily. [place] 00 [facility] lidocaine 5 2017-0 Yes Univer s % (700 4-21 ity of mg/patch) 00:00: [place] patch 00 [facility] gabapentin 2017-0 2022- No Take by Uni vers 300 mg -01-11 mouth ity of capsule 00:00: 00:00 daily. [place] 00 :00 [facility] lidocaine 5 2016-0 2022- No Unive rs % (700 08-03 ity of mg/patch) 00:00: 00:00 [place] patch 00 :00 [facility] pantoprazol 2017-0 Yes Univer s e 40 mg EC 4-14 ity of tablet 00:00: [place] [facility] pantoprazol 2017-0 Yes Univer s e 40 mg EC 4-14 ity of tablet 00:00: [place] [facility] pantoprazol 2017-0 Yes Univer s e 40 mg EC 4-14 ity of tablet 00:00: [place] [facility] pantoprazol 2017-0 Yes Univer s e 40 mg EC 4-14 ity of tablet 00:00: [place] [facility] pantoprazol 2017-0 Yes Univer s e 40 mg EC 4-14 ity of tablet 00:00: [place] [facility] pantoprazol 2017-0 Yes Univer s e 40 mg EC 4-14 ity of tablet 00:00: [place] [facility] pantoprazol 2017-0 Yes Univer s e 40 mg EC 4-14 ity of tablet 00:00: [place] [facility] pantoprazol 2017-0 Yes Univer s e 40 mg EC 4-14 ity of tablet 00:00: [place] [facility] pantoprazol 2017-0 Yes Univer s e 40 mg EC 4-14 ity of tablet 00:00: [place] [facility] pantoprazol 2017-0 Yes Univer s e 40 mg EC 4-14 ity of tablet 00:00: [place] [facility] pantoprazol 2017-0 Yes Univer s e 40 mg EC 4-14 ity of tablet 00:00: [place] [facility] pantoprazol 2017-0 Yes Univer s e 40 mg EC 4-14 ity of tablet 00:00: [place] [facility] pantoprazol 2017-0 Yes Univer s e 40 mg EC 4-14 ity of tablet 00:00: [place] 00 [facility] pantoprazol 2017-0 Yes Univer s e 40 mg EC 4-14 ity of tablet 00:00: [place] [facility] pantoprazol 2017-0 Yes Univer s e 40 mg EC 4-14 ity of tablet 00:00: [place] [facility] pantoprazol 2017-0 Yes Univer s e 40 mg EC 4-14 ity of tablet 00:00: [place] [facility] pantoprazol 2017-0 Yes Univer s e 40 mg EC 4-14 ity of tablet 00:00: [place] [facility] pantoprazol 2017-0 Yes Univer s e 40 mg EC 4-14 ity of tablet 00:00: [place] [facility] pantoprazol 2017-0 Yes Univer s e 40 mg EC 4-14 ity of tablet 00:00: [place] [facility] pantoprazol 2017-0 Yes Univer s e 40 mg EC 4-14 ity of tablet 00:00: [place] [facility] pantoprazol 2017-0 Yes Univer s e 40 mg EC 4-14 ity of tablet 00:00: [place] [facility] pantoprazol 2017-0 Yes Univer s e 40 mg EC 4-14 ity of tablet 00:00: [place] [facility] pantoprazol 2017-0 Yes Univer s e 40 mg EC 4-14 ity of tablet 00:00: [place] [facility] pantoprazol 2017-0 Yes Univer s e 40 mg EC 4-14 ity of tablet 00:00: [place] [facility] pantoprazol 2017-0 Yes Univer s e 40 mg EC 4-14 ity of tablet 00:00: [place] [facility] pantoprazol 2017-0 Yes Univer s e 40 mg EC 4-14 ity of tablet 00:00: [place] [facility] pantoprazol 2017-0 Yes Univer s e 40 mg EC 4-14 ity of tablet 00:00: [place] [facility] pantoprazol 2017-0 Yes Univer s e 40 mg EC 4-14 ity of tablet 00:00: [place] [facility] pantoprazol 2017-0 Yes Univer s e 40 mg EC 4-14 ity of tablet 00:00: [place] [facility] pantoprazol 2017-0 Yes Univer s e 40 mg EC 4-14 ity of tablet 00:00: [place] [facility] pantoprazol 2017-0 Yes Univer s e 40 mg EC 4-14 ity of tablet 00:00: [place] [facility] pantoprazol 2017-0 Yes Univer s e 40 mg EC 4-14 ity of tablet 00:00: [place] [facility] pantoprazol 2017-0 Yes Univer s e 40 mg EC 4-14 ity of tablet 00:00: [place] [facility] pantoprazol 2017-0 Yes Univer s e 40 mg EC 4-14 ity of tablet 00:00: [place] [facility] pantoprazol 2017-0 Yes Univer s e 40 mg EC 4-14 ity of tablet 00:00: [place] [facility] pantoprazol 2017-0 Yes Univer s e 40 mg EC 4-14 ity of tablet 00:00: [place] [facility] pantoprazol 2017-0 Yes Univer s e 40 mg EC 4-14 ity of tablet 00:00: [place] [facility] pantoprazol 2017-0 Yes Univer s e 40 mg EC 4-14 ity of tablet 00:00: [address] pantoprazol 2017-0 Yes Univer s e 40 mg EC 4-14 ity of tablet 00:00: [address] pantoprazol 2017-0 Yes Univer s e 40 mg EC 4-14 ity of tablet 00:00: [address] pantoprazol 2017-0 Yes Univer s e 40 mg EC 4-14 ity of tablet 00:00: [place] [facility] pantoprazol 2017-0 Yes Univer s e 40 mg EC 4-14 ity of tablet 00:00: [place] [facility] pantoprazol 2017-0 Yes Univer s e 40 mg EC 4-14 ity of tablet 00:00: [place] [facility] pantoprazol 2017-0 Yes Univer s e 40 mg EC 4-14 ity of tablet 00:00: [place] [facility] pantoprazol 2017-0 Yes Univer s e 40 mg EC 4-14 ity of tablet 00:00: [place] [facility] pantoprazol 2017-0 Yes Univer s e 40 mg EC 4-14 ity of tablet 00:00: [place] [facility] pantoprazol 2017-0 Yes Univer s e 40 mg EC 4-14 ity of tablet 00:00: [place] 00 [facility] pantoprazol 2017-0 Yes Univer s e 40 mg EC 4-14 ity of tablet 00:00: [place] [facility] pantoprazol 2017-0 Yes Univer s e 40 mg EC 4-14 ity of tablet 00:00: [place] [facility] pantoprazol 2017-0 Yes Univer s e 40 mg EC 4-14 ity of tablet 00:00: [place] [facility] pantoprazol 2017-0 Yes Univer s e 40 mg EC 4-14 ity of tablet 00:00: [place] [facility] pantoprazol 2017-0 Yes Univer s e 40 mg EC 4-14 ity of tablet 00:00: [place] [facility] pantoprazol 2017-0 Yes Univer s e 40 mg EC 4-14 ity of tablet 00:00: [address] pantoprazol 2017-0 Yes Univer s e 40 mg EC 4-14 ity of tablet 00:00: [place] [facility] pantoprazol 2017-0 Yes Univer s e 40 mg EC 4-14 ity of tablet 00:00: [address] pantoprazol 2017-0 Yes Univer s e 40 mg EC 4-14 ity of tablet 00:00: [address] pantoprazol 2017-0 Yes Univer s e 40 mg EC 4-14 ity of tablet 00:00: [address] pantoprazol 2017-0 Yes Univer s e 40 mg EC 4-14 ity of tablet 00:00: [address] Branch pantoprazol 2017-0 Yes Univer s e 40 mg EC 4-14 ity of tablet 00:00: [place] [facility] pantoprazol 2017-0 Yes Univer s e 40 mg EC 4-14 ity of tablet 00:00: [place] [facility] pantoprazol 2017-0 Yes Univer s e 40 mg EC 4-14 ity of tablet 00:00: [place] [facility] pantoprazol 2017-0 Yes Univer s e 40 mg EC 4-14 ity of tablet 00:00: [place] [facility] pantoprazol 2017-0 Yes Univer s e 40 mg EC 4-14 ity of tablet 00:00: [place] [facility] pantoprazol 2017-0 Yes Univer s e 40 mg EC 4-14 ity of tablet 00:00: [place] 00 [facility] pantoprazol 2017-0 Yes Univer s e 40 mg EC 4-14 ity of tablet 00:00: [place] 00 [facility] pantoprazol 2017-0 Yes Univer s e 40 mg EC 4-14 ity of tablet 00:00: [place] [facility] pantoprazol 2017-0 Yes Univer s e 40 mg EC 4-14 ity of tablet 00:00: [place] [facility] pantoprazol 2017-0 Yes Univer s e 40 mg EC 4-14 ity of tablet 00:00: [place] [facility] pantoprazol 2017-0 Yes Univer s e 40 mg EC 4-14 ity of tablet 00:00: [place] [facility] pantoprazol 2017-0 Yes Univer s e 40 mg EC 4-14 ity of tablet 00:00: [place] [facility] pantoprazol 2017-0 Yes Univer s e 40 mg EC 4-14 ity of tablet 00:00: [place] [facility] pantoprazol 2017-0 Yes Univer s e 40 mg EC 4-14 ity of tablet 00:00: [place] [facility] pantoprazol 2017-0 Yes Univer s e 40 mg EC 4-14 ity of tablet 00:00: [place] [facility] pantoprazol 2017-0 Yes Univer s e 40 mg EC 4-14 ity of tablet 00:00: [place] [facility] pantoprazol 2017-0 Yes Univer s e 40 mg EC 4-14 ity of tablet 00:00: [place] [facility] pantoprazol 2017-0 Yes Univer s e 40 mg EC 4-14 ity of tablet 00:00: [place] [facility] pantoprazol 2017-0 Yes Univer s e 40 mg EC 4-14 ity of tablet 00:00: [place] [facility] pantoprazol 2017-0 Yes Univer s e 40 mg EC 4-14 ity of tablet 00:00: [place] [facility] pantoprazol 2017-0 Yes Univer s e 40 mg EC 4-14 ity of tablet 00:00: [place] [facility] pantoprazol 2017-0 Yes Univer s e 40 mg EC 4-14 ity of tablet 00:00: [place] [facility] pantoprazol 2017-0 Yes Univer s e 40 mg EC 4-14 ity of tablet 00:00: [place] [facility] pantoprazol 2017-0 Yes Univer s e 40 mg EC 4-14 ity of tablet 00:00: [place] [facility] pantoprazol 2017-0 Yes Univer s e 40 mg EC 4-14 ity of tablet 00:00: [place] [facility] pantoprazol 2017-0 Yes Univer s e 40 mg EC 4-14 ity of tablet 00:00: [place] [facility] pantoprazol 2017-0 Yes Univer s e 40 mg EC 4-14 ity of tablet 00:00: [place] [facility] pantoprazol 2017-0 Yes Univer s e 40 mg EC 4-14 ity of tablet 00:00: [place] [facility] pantoprazol 2017-0 Yes Univer s e 40 mg EC 4-14 ity of tablet 00:00: [place] [facility] pantoprazol 2017-0 Yes Univer s e 40 mg EC 4-14 ity of tablet 00:00: [place] [facility] pantoprazol 2017-0 Yes Univer s e 40 mg EC 4-14 ity of tablet 00:00: [place] [facility] pantoprazol 2017-0 Yes Univer s e 40 mg EC 4-14 ity of tablet 00:00: [address] pantoprazol 2017-0 Yes Univer s e 40 mg EC 4-14 ity of tablet 00:00: [place] [facility] pantoprazol 2017-0 Yes Univer s e 40 mg EC 4-14 ity of tablet 00:00: [place] [facility] pantoprazol 2017-0 Yes Univer s e 40 mg EC 4-14 ity of tablet 00:00: [place] [facility] pantoprazol 2017-0 Yes Univer s e 40 mg EC 4-14 ity of tablet 00:00: [place] [facility] pantoprazol 2017-0 Yes Univer s e 40 mg EC 4-14 ity of tablet 00:00: [place] [facility] pantoprazol 2017-0 Yes Univer s e 40 mg EC 4-14 ity of tablet 00:00: [place] [facility] pantoprazol 2017-0 Yes Univer s e 40 mg EC 4-14 ity of tablet 00:00: [place] [facility] pantoprazol 2017-0 Yes Univer s e 40 mg EC 4-14 ity of tablet 00:00: [place] [facility] pantoprazol 2017-0 Yes Univer s e 40 mg EC 4-14 ity of tablet 00:00: [place] [facility] pantoprazol 2017-0 Yes Univer s e 40 mg EC 4-14 ity of tablet 00:00: [place] [facility] pantoprazol 2017-0 Yes Univer s e 40 mg EC 4-14 ity of tablet 00:00: [place] [facility] pantoprazol 2017-0 Yes Univer s e 40 mg EC 4-14 ity of tablet 00:00: [place] [facility] pantoprazol 2017-0 Yes Univer s e 40 mg EC 4-14 ity of tablet 00:00: [place] [facility] pantoprazol 2017-0 Yes Univer s e 40 mg EC 4-14 ity of tablet 00:00: [address] Branch pantoprazol 2017-0 Yes Univer s e 40 mg EC 4-14 ity of tablet 00:00: [place] [facility] pantoprazol 2017-0 Yes Univer s e 40 mg EC 4-14 ity of tablet 00:00: [address] Branch pantoprazol 2017-0 Yes Univer s e 40 mg EC 4-14 ity of tablet 00:00: [address] Branch pantoprazol 2017-0 Yes Univer s e 40 mg EC 4-14 ity of tablet 00:00: [address] Branch pantoprazol 2017-0 Yes Univer s e 40 mg EC 4-14 ity of tablet 00:00: [address] Branch pantoprazol 2017-0 Yes Univer s e 40 mg EC 4-14 ity of tablet 00:00: [place] [facility] pantoprazol 2017-0 Yes Univer s e 40 mg EC 4-14 ity of tablet 00:00: [place] [id number] Medical Branch pantoprazol 2017-0 Yes Univer s e 40 mg EC 4-14 ity of tablet 00:00: [place] [address] [facility] pantoprazol 2017-0 Yes Univer s e 40 mg EC 4-14 ity of tablet 00:00: [place] [facility] pantoprazol 2017-0 Yes Univer s e 40 mg EC 4-14 ity of tablet 00:00: [place] [facility] pantoprazol 2017-0 Yes Univer s e 40 mg EC 4-14 ity of tablet 00:00: [place] [facility] pantoprazol 2017-0 Yes Univer s e 40 mg EC 4-14 ity of tablet 00:00: [place] 00 [facility] pantoprazol 2017-0 Yes Univer s e 40 mg EC 4-14 ity of tablet 00:00: [place] 00 [facility] pantoprazol 2017-0 Yes Univer s e 40 mg EC 4-14 ity of tablet 00:00: [place] 00 [facility] pantoprazol 2017-0 Yes Univer s e 40 mg EC 4-14 ity of tablet 00:00: [place] 00 [facility] pantoprazol 2017-0 Yes Univer s e 40 mg EC 4-14 ity of tablet 00:00: [place] 00 [facility] pantoprazol 2017-0 Yes Univer s e 40 mg EC 4-14 ity of tablet 00:00: [place] 00 [facility] pantoprazol 2017-0 Yes Univer s e 40 mg EC 4-14 ity of tablet 00:00: [place] 00 [facility] pantoprazol 2017-0 Yes Univer s e 40 mg EC 4-14 ity of tablet 00:00: [place] 00 [facility] pantoprazol 2017-0 Yes Univer s e 40 mg EC 4-14 ity of tablet 00:00: [place] 00 [facility] pantoprazol 2017-0 Yes Univer s e 40 mg EC 4-14 ity of tablet 00:00: [place] 00 [facility] pantoprazol 2017-0 Yes Univer s e 40 mg EC 4-14 ity of tablet 00:00: [place] 00 [facility] pantoprazol 2017-0 Yes Univer s e 40 mg EC 4-14 ity of tablet 00:00: [place] 00 [facility] pantoprazol 2017-0 Yes Univer s e 40 mg EC 4-14 ity of tablet 00:00: [place] 00 [facility] pantoprazol 2017-0 Yes Univer s e 40 mg EC 4-14 ity of tablet 00:00: [place] 00 [facility] pantoprazol 2017-0 2023- No Unive rs e 40 mg EC 4-14 01-11 ity of tablet 00:00: 00:00 [place] 00 :00 Medical [facility] aspirin 81 2015-04 Yes 81mg Take 1 Unive rs mg chewable 0-26 tablet by ity of tablet 00:00: mouth 00 daily. Medical Branch aspirin 81 2015- [...] Universit y of Vaccine (3+ yrs) [place] [facility] Pneumococcal Unknown Completed University o f Polysaccharide, [place] [facility] ical PPSV23 (PNEUMOVAX) Branch Influenza Virus Unknown Completed Universit y of Vaccine,quad [place] [facility] Im,preserve Free Branch 65+ (FLUAD) Influenza Virus Unknown Completed Universit y of Vaccine (3+ yrs) [place] [facility] Pneumococcal Unknown Completed University o f Polysaccharide, [place] [facility] ical PPSV23 (PNEUMOVAX) Branch Influenza Virus Unknown Completed Universit y of Vaccine,quad [place] [facility] Im,preserve Free Branch 65+ (FLUAD) Influenza Virus Unknown Completed Universit y of Vaccine (3+ yrs) [place] [facility] Pneumococcal Unknown Completed University o f Polysaccharide, [place] [facility] ical PPSV23 (PNEUMOVAX) Branch Influenza Virus Unknown Completed Universit y of Vaccine,quad [place] [facility] Im,preserve Free Branch 65+ (FLUAD) Influenza Virus Unknown Completed Universit y of Vaccine,quad [place] [facility] Im,preserve Free Branch 65+ (FLUAD) Influenza Virus Unknown Completed Universit y of Vaccine (3+ yrs) [place] [facility] Pneumococcal Unknown Completed University o f Polysaccharide, [place] [facility] ical PPSV23 (PNEUMOVAX) Branch Influenza Virus Unknown Completed Universit y of Vaccine,quad [place] [facility] Im,preserve Free Branch 65+ (FLUAD) Influenza Virus Unknown Completed Universit y of Vaccine,quad [place] [facility] Im,preserve Free Branch 65+ (FLUAD) Influenza Virus Unknown Completed Universit y of Vaccine (3+ yrs) [place] [facility] Pneumococcal Unknown Completed University o f Polysaccharide, [place] [facility] ical PPSV23 (PNEUMOVAX) Branch Influenza Virus Unknown Completed Universit y of Vaccine,quad [place] [facility]ica [facility] Im,preserve Free Branch 65+ (FLUAD) Influenza Virus Unknown Completed Universit y of Vaccine,quad [place] [facility] Im,preserve Free Branch 65+ (FLUAD) Influenza Virus Unknown Completed Universit y of Vaccine (3+ yrs) [place] [facility] Pneumococcal Unknown Completed University o f Polysaccharide, [place] [facility] ical PPSV23 (PNEUMOVAX) Branch Influenza Virus Unknown Completed Universit y of Vaccine,quad [place] [facility]ica [facility] Im,preserve Free Branch 65+ (FLUAD) Influenza Virus Unknown Completed Universit y of Vaccine,quad [place] [facility]ica [facility] Im,preserve Free Branch 65+ (FLUAD) Influenza Virus Unknown Completed Universit y of Vaccine (3+ yrs) [place] [facility] Pneumococcal Unknown Completed University o f Polysaccharide, [place] [facility] ical PPSV23 (PNEUMOVAX) Branch Influenza Virus Unknown Completed Universit y of Vaccine,quad [place] Medica [facility] Im,preserve Free Branch 65+ (FLUAD) Vital Signs Vital Name Observation Time Observation Value Comments Source Systolic blood 2023-02-03 16:24:00 110 mm[Hg] Univer sity of pressure [facility] Diastolic blood 2023-02-03 16:24:00 43 mm[Hg] Unive rsity of [facility] Heart rate 2023-02-03 16:24:00 43 /min [facility] Body temperature 2023-02-03 16:24:00 36.5 Allie [facility] 2023-02-03 16:24:00 18 /min [facility] Oxygen saturation in 2023-02-03 16:24:00 96 /min [facility] Arterial blood by [facility] Pulse oximetry Branch Body weight 2023-02-03 08:50:00 53.479 kg [facility] BMI 2023-02-03 08:50:00 20.89 kg/m2 [facility] Body height 2023-02-02 20:58:00 160 cm [facility] Systolic blood 2023-01-11 20:54:00 123 mm[Hg] Univer sity of [facility] Diastolic blood 2023-01-11 20:54:00 53 mm[Hg] Unive rsity of pressure [facility] Heart rate 2023-01-11 20:54:00 63 /min [facility] Body temperature 2023-01-11 20:54:00 36.22 Allie [facility] Respiratory rate 2023-01-11 20:54:00 18 /min [facility] [place] [facility] Oxygen saturation in 2023-01-11 20:54:00 99 /min University of Arterial blood by [place] [facility] Pulse oximetry Branch Body weight 2023-01-11 09:14:00 44.316 kg Universi ty of [place] [facility] BMI 2023-01-11 09:14:00 17.31 kg/m2 [facility] [place] [facility] Body height 2023-01-09 20:32:00 160 cm [facility]i ty [facility] [place] [facility] Systolic blood 2022-12-20 20:44:00 139 mm[Hg] Univer sity of pressure [place] [facility] Diastolic blood 2022-12-20 20:44:00 60 mm[Hg] Unive rsity of pressure [place] [facility] Heart rate 2022-12-20 20:44:00 53 /min [facility]i ty [facility] [place] [facility] Body height 2022-12-20 20:44:00 160 cm [facility]i [facility] [place] [facility] Body weight 2022-12-20 20:44:00 44.815 kg [facility]i ty [facility] [place] [facility] BMI 2022-12-20 20:44:00 17.50 kg/m2 [facility] [place] [facility] Oxygen saturation in 2022-12-20 20:41:00 100 /min University of Arterial blood by [place] [facility] Pulse oximetry Branch Systolic blood 2022-08-28 18:09:00 134 mm[Hg] Univer sity of pressure [place] [facility] Diastolic blood 2022-08-28 18:09:00 72 mm[Hg] Unive rsity of pressure [place] [facility] Heart rate 2022-08-28 18:09:00 71 /min [facility]i ty [facility] [place] [facility] Respiratory rate 2022-08-28 18:09:00 19 /min Univ ersity of [place] [facility] Body height 2022-08-28 18:09:00 160 cm Universi ty of [place] [facility] Body weight 2022-08-28 18:09:00 46.63 kg [facility]i ty [facility] [place] [facility] BMI 2022-08-28 18:09:00 18.21 kg/m2 [facility]i [facility] [place] [facility] Oxygen saturation in 2022-08-28 18:09:00 98 /min University of Arterial blood by [place] [facility] Pulse oximetry Branch Systolic blood 2022-06-25 15:38:00 137 mm[Hg] Univer sity of pressure [place] [facility] Diastolic blood 2022-06-25 15:38:00 46 mm[Hg] Unive rsity of pressure [facility] Heart rate 2022-06-25 15:38:00 56 /min Universi ty of [facility] Body temperature 2022-06-25 15:38:00 36.11 Allie Univ ersity of [facility] Respiratory rate 2022-06-25 15:38:00 17 /min Univ ersity of [facility] Body height 2022-06-25 15:38:00 160 cm Universi ty of [facility] Body weight 2022-06-25 15:38:00 46.494 kg Universi ty of [facility] BMI 2022-06-25 15:38:00 18.16 kg/m2 Universi ty of [facility] Systolic blood 2022-06-12 13:39:00 124 mm[Hg] Univer sity of [facility] Diastolic blood 2022-06-12 13:39:00 56 mm[Hg] Unive rsity of [facility] Heart rate 2022-06-12 13:39:00 74 /min Universi ty of [facility] Body temperature 2022-06-12 13:39:00 36.67 Allie Univ ersity of [facility] Respiratory rate 2022-06-12 13:39:00 18 /min [facility] [place] [facility] Oxygen saturation in 2022-06-12 13:39:00 100 /min [place] Arterial blood by [facility] Pulse oximetry Branch Body weight 2022-06-12 10:12:00 46.494 kg Universi ty of [facility] BMI 2022-06-12 10:12:00 18.16 kg/m2 Universi ty of [facility] Body height 2022-06-06 23:33:00 160 cm [facility] [place] [facility] HEIGHT 2022-05-18 09:00:00 160 cm WEIGHT 2022-05-18 09:00:00 47.9 kg HEIGHT 2022-05-18 09:00:00 160 cm WEIGHT 2022-05-18 09:00:00 47.9 kg HEIGHT 2022-05-18 09:00:00 160 cm WEIGHT 2022-05-18 09:00:00 47.9 kg Systolic blood 2022-05-10 17:56:00 153 mm[Hg] Univer sity of pressure [place] [facility] Diastolic blood 2022-05-10 17:56:00 47 mm[Hg] Unive rsity of pressure [place] [facility] Heart rate 2022-05-10 17:54:00 68 /min Universi ty [facility] [place] [facility] Respiratory rate 2022-05-10 17:54:00 20 /min Univ ersity of [place] [facility] Body height 2022-05-10 17:54:00 160 cm [facility]i ty [facility] [place] [facility] Body weight 2022-05-10 17:54:00 46.085 kg [facility]i [facility] [place] [facility] BMI 2022-05-10 17:54:00 18.00 kg/m2 [facility] [place] [facility] Oxygen saturation in 2022-05-10 17:54:00 99 /min University of Arterial blood by [facility] Pulse oximetry Branch Systolic blood 2022-02-28 19:10:00 161 mm[Hg] Univer sity of pressure [place] [facility] Diastolic blood 2022-02-28 19:10:00 59 mm[Hg] Unive rsity of pressure [place] [facility] Heart rate 2022-02-28 19:10:00 50 /min [facility]i ty [facility] [place] [facility] Oxygen saturation in 2022-02-28 19:10:00 100 /min University of Arterial blood by [facility] Pulse oximetry Branch Body temperature 2022-02-28 19:08:00 36.11 Allie Univ ersity of [place] [facility] Respiratory rate 2022-02-28 19:08:00 16 /min Univ ersity of [place] [facility] Body weight 2022-02-28 19:08:00 49.125 kg [facility]i ty [facility] [place] [facility] BMI 2022-02-28 19:08:00 19.18 kg/m2 [facility] [place] [facility] Systolic blood 2022-06-25 15:38:00 137 mm[Hg] Univer sity of pressure [place] [facility] Diastolic blood 2022-06-25 15:38:00 46 mm[Hg] Unive rsity of pressure [place] [facility] Heart rate 2022-06-25 15:38:00 56 /min [facility]i ty [facility] [place] [facility] Body temperature 2022-06-25 15:38:00 36.11 Allie Univ ersity of [place] [facility] Respiratory rate 2022-06-25 15:38:00 17 /min Univ ersity of [place] [facility] Body height 2022-06-25 15:38:00 160 cm [facility]i [facility] [place] [facility] Body weight 2022-06-25 15:38:00 46.494 kg Universi ty of [facility] BMI 2022-06-25 15:38:00 18.16 kg/m2 Universi ty [facility] Systolic blood 2022-06-12 13:39:00 124 mm[Hg] Univer sity of pressure [facility] Diastolic blood 2022-06-12 13:39:00 56 mm[Hg] Unive rsity of pressure [facility] Heart rate 2022-06-12 13:39:00 74 /min Universi ty of [facility] Body temperature 2022-06-12 13:39:00 36.67 [facility]ie [facility] 2022-06-12 13:39:00 18 /min [facility] Oxygen saturation in 2022-06-12 13:39:00 100 /min [facility] Arterial blood by [facility] Pulse oximetry Branch Body weight 2022-06-12 10:12:00 46.494 kg [facility]i [facility] [place] [facility] BMI 2022-06-12 10:12:00 18.16 kg/m2 Universi ty of [facility] Body height 2022-06-06 23:33:[address] [facility] Systolic blood 2022-05-27 16:06:00 109 mm[Hg] [facility] Diastolic blood 2022-05-27 16:06:00 53 mm[Hg] [facility] Heart rate 2022-05-27 16:03:00 69 /min [facility] Body temperature 2022-05-27 16:03:00 37.11 Allie [facility] Respiratory rate 2022-05-27 16:03:00 17 /min [facility] Oxygen saturation in 2022-05-27 16:03:00 96 /min [facility] Arterial blood by Medical nter Pulse oximetry Systolic blood 2022-05-24 07:00:00 117 mm[Hg] [facility] Diastolic blood 2022-05-24 07:00:00 73 mm[Hg] [facility] S t [facility] Heart rate 2022-05-24 07:00:00 81 /min [facility] Body temperature 2022-05-24 07:00:00 36.67 Allie [facility] Respiratory rate 2022-05-24 07:00:00 15 /min [facility] Oxygen saturation in 2022-05-24 07:00:00 96 /min [facility] Arterial blood by Medical Ce nter Pulse oximetry Systolic blood 2022-05-22 08:00:00 126 mm[Hg] [facility] Diastolic blood 2022-05-22 08:00:00 62 mm[Hg] [facility] Heart rate 2022-05-22 08:00:00 63 /min [facility] Respiratory rate 2022-05-22 08:00:00 24 /min [facility] Oxygen saturation in 2022-05-22 08:00:00 98 /min [facility] Arterial blood by Medical Ce nter Pulse oximetry Body temperature 2022-05-21 16:00:00 36.67 Allie [facility] Systolic blood 2022-05-21 08:23:00 127 mm[Hg] [facility] Diastolic blood 2022-05-21 08:23:00 65 mm[Hg] [facility] Heart rate 2022-05-21 07:30:00 76 /min [facility] Respiratory rate 2022-05-21 07:30:00 17 /min [facility] Oxygen saturation in 2022-05-21 07:30:00 98 /min [facility] Arterial blood by Medical Ce nter Pulse oximetry Body temperature 2022-05-21 00:00:00 36.17 Allie [facility] Body height 2022-05-18 09:00:00 160 cm [facility] Body weight 2022-05-18 09:00:00 47.9 kg [facility] BMI 2022-05-18 09:00:00 18.71 kg/m2 [facility] Procedures Procedure Date / Time Performing Clinician Source Performed TROPONIN I 2023-02-03 08:34:00 aRo Childs [facility] PROTHROMBIN TIME / INR 2023-02-03 08:34:00 [facility] 2023-02-03 01:17:00 Rao Childs [facility] XR FEMUR 2 VW LEFT 2023-02-02 22:37:13 Jose Villa [facility] CREATINE KINASE 2023-02-02 17:37:00 Mazin Merrill [facility] MAGNESIUM 2023-02-02 17:37:00 Mazin Merrill [facility] TROPONIN I 2023-02-02 17:37:00 Mazin Merrill [facility] COMP. METABOLIC PANEL 2023-02-02 17:37:00 Mazin Merrill [facility] [place] [facility] [place] ([id number]) [facility] CBC WITH DIFF 2023-02-02 17:37:00 Mazin Merrill [facility] PROTHROMBIN TIME / INR 2023-02-02 17:37:00 Mazin Merrill [facility] ACTIVATED PARTIAL 2023-02-02 17:37:00 Mazin Merrill [facility] N-TERMINAL PRO-BNP 2023-02-02 17:37:00 Mazin Merrill [facility] URINE DRUG (IMMUNOASSAY) 2023-02-02 17:35:00 Mazin Merrill [facility] SCREEN URINALYSIS 2023-02-02 17:35:00 Mazin Merrill [facility] RAPID INFLUENZA A/B 2023-02-02 17:35:00 Mazin Merrill [facility] COVID-19 (ID NOW RAPID 2023-02-02 17:35:00 Mazin Merrill [facility] TESTING) [facility] XR CHEST 1 VW 2023-02-02 17:24:07 Mazin Merrill [facility] HB ECG ROUTINE & RHYTHM 2023-02-02 17:20:15 Mazin Merrill [facility] [place] CONSENT/REFUSAL FOR 2023-02-02 17:09:50 Doctor Unassigned, No Un [facility] DIAGNOSIS AND TREATMENT Name Medical Branch MAGNESIUM 2023-01-11 09:00:00 Alysa Heath [facility] HEPATIC FUNCTION PANEL 2023-01-11 09:00:00 Alysa Heath [facility] ([id number]) (ALB,T.PRO,BILI [facility] T,BU/BC,ALT,AST,ALK PHOS) BASIC METABOLIC PANEL 2023-01-11 09:00:00 Alysa Heath [facility] (NA, K, CL, CO2, GLUCOSE, Medica l Branch BUN, CREATININE, CA) CBC WITH DIFF 2023-01-11 09:00:00 Alysa Heath [facility] PROTHROMBIN TIME / INR 2023-01-11 09:00:00 [facility] XR CHEST 1 VW 2023-01-10 15:20:00 Mariia Cardona [facility] MAGNESIUM 2023-01-10 09:35:00 Marli Robert [facility] BASIC METABOLIC PANEL 2023-01-10 09:35:00 Marli Robert [facility] (NA, K, CL, CO2, GLUCOSE, Medica l Branch BUN, CREATININE, CA) CBC WITH DIFF 2023-01-10 09:35:00 Marli Robert [facility] PROTHROMBIN TIME / INR 2023-01-10 09:35:00 Alicia Smith [facility] PROTHROMBIN TIME / INR 2023-01-09 23:39:00 Marli Robert [facility] MAGNESIUM 2023-01-09 10:43:00 Glenroy Harper [facility] BASIC METABOLIC PANEL 2023-01-09 10:43:00 Glenroy Harper [facility] (NA, K, CL, CO2, GLUCOSE, Medica l Branch BUN, CREATININE, CA) CBC WITH DIFF 2023-01-09 10:43:00 Glenroy Harper [place] [facility] PROTHROMBIN TIME / INR 2023-01-09 10:43:00 [facility] HB ECG ROUTINE & RHYTHM 2023-01-08 13:46:26 Radha Mcdowell [facility] MAGNESIUM 2023-01-08 09:25:00 Leroy [facility] BASIC METABOLIC PANEL 2023-01-08 09:25:00 Jose Villa [facility] (NA, K, CL, CO2, GLUCOSE, Medica l Branch BUN, CREATININE, CA) PROTHROMBIN TIME / INR 2023-01-08 09:25:00 Jose Villa [facility] N-TERMINAL PRO-BNP 2023-01-08 09:25:00 Leroy [facility] FECES CULTURE 2023-01-07 15:52:00 [facility] 2023-01-07 15:51:00 [facility]IN I 2023-01-07 10:08:00 Timi [facility] THYROID STIMULATING 2023-01-07 10:08:00 Timi [facility] HORMONE [facility] CBC WITH DIFF 2023-01-07 10:08:00 [facility] / INR 2023-01-07 10:08[facility] 2023-01-07 05:56:00 [facility] BASIC METABOLIC PANEL 2023-01-07 05:56:00 [facility] (NA, K, CL, CO2, GLUCOSE, Medica l Branch BUN, CREATININE, CA) URINALYSIS 2023-01-07 00:03:00 Babita Iglesias [facility] CT HEAD WO CONTRAST 2023-01-06 23:40:00 Babita Iglesias [facility] CT LUMBAR SPINE WO 2023-01-06 23:40:[address] [facility] CONTRAST [facility] XR CHEST 1 VW 2023-01-06 23:25:00 Babita Iglesias [facility] XR HIPS 3 VW RIGHT 2023-01-06 23:15:00 Babita Iglesias [facility] LIPASE 2023-01-06 23:04:00 Babita Iglesias [facility] MAGNESIUM 2023-01-06 23:04:00 Babita Iglesias [facility] TROPONIN I 2023-01-06 23:04:00 Babita Iglesias [facility] COMP. METABOLIC PANEL 2023-01-06 23:04:00 Babita Iglesias [facility] ([id number]) [facility] CBC WITH DIFF 2023-01-06 23:04:00 Babita Iglesias [facility] PROTHROMBIN TIME / INR 2023-01-06 23:04:00 Babita Iglesias [facility] ACTIVATED PARTIAL 2023-01-06 23:04:00 Babiat Iglesias [facility] THRMPLAS [facility] N-TERMINAL PRO-BNP 2023-01-06 23:04:00 Babita Iglesias [facility] HB ECG ROUTINE & RHYTHM 2023-01-06 22:55:15 Babita Iglesias Uni [facility] CONSENT/REFUSAL FOR 2023-01-06 22:35:09 Doctor Unassigned, No [facility] [place] [facility] AND TREATMENT [facility] HOSPITAL ADMISSION 2023-01-06 05:01:00 Doctor Unassigned, No [facility] HB ECG ROUTINE & RHYTHM 2022-12-20 20:39:31 Woodrow [facility] PATIENT FINANCIAL 2022-12-20 20:03:45 Doctor Unassigned, No [facility] POLICY [facility] HEALTH - OTHER 2022-12-06 05:01:00 Doctor Unassigned, No Un iversity of [facility] HOME HEALTH - OTHER 2022-11-24 05:01:00 Doctor Unassigned, No Un iversity of [facility] EXTERNAL PROVIDER - ADC 2022-11-09 05:01:00 Doctor Unassigned, N o [facility] CARDIOLOGY [facility] MEDICAL RELEASE/CLEARANCE 2022-10-04 05:01:00 Doctor Unassigned, No [facility] FORMS [facility] MEDICAL RELEASE/CLEARANCE 2022-08-23 05:01:00 Doctor Unassigned, No [facility] XR HIPS 2 VW RIGHT 2022-08-01 15:29:05 Joseph Corets [facility] CONSENT/REFUSAL FOR 2022-08-01 15:11:45 Doctor Unassigned, No Un iversity of [place] DIAGNOSIS AND TREATMENT [facility] ASSIGNMENT OF BENEFITS 2022-08-01 15:11:28 Doctor Unassigned, No [facility] PROTHROMBIN TIME / INR 2022-07-10 14:51:00 [place] Dan [facility] CONSENT/REFUSAL FOR 2022-07-10 14:37:14 Doctor Unassigned, No [facility] [place] [facility] CONSENT/REFUSAL FOR 2022-07-10 14:37:14 Doctor Unassigned, No [facility] [place] [facility] ASSIGNMENT OF BENEFITS 2022-07-10 14:36:56 Doctor Unassigned, No [facility] ASSIGNMENT OF BENEFITS 2022-07-10 14:36:56 Doctor Unassigned, No [facility] PROTHROMBIN TIME / INR 2022-06-25 15:22:00 [place] Dan [facility] PROTHROMBIN TIME / INR 2022-06-12 08:34:00 Mariia Cardona [facility] MAGNESIUM 2022-06-12 08:34:00 Leslie Espitia [facility] BASIC METABOLIC PANEL 2022-06-12 08:34:00 Leslie Espitia [facility] (NA, K, CL, CO2, GLUCOSE, Medica l Branch BUN, CREATININE, CA) CBC WITH DIFF 2022-06-12 08:34:00 Leslie Espitia [facility] ACTIVATED PARTIAL 2022-06-12 08:34:00 Shawanda Lagos [facility] MAG[facility] 2022-06-12 08:34:00 Leslie Espitia [facility] BASIC METABOLIC PANEL 2022-06-12 08:34:00 Leslie Espitia [facility] (NA, K, CL, CO2, GLUCOSE, Medica l Branch BUN, CREATININE, CA) CBC WITH DIFF 2022-06-12 08:34:00 Leslie Espitia [facility] PROTHROMBIN TIME / INR 2022-06-12 08:34:00 Mariia Cardona [facility] ACTIVATED PARTIAL 2022-06-12 08:34:00 Demond [facility] ACTIVATED PARTIAL 2022-06-12 02:29:00 Demond [facility] ACTIVATED PARTIAL 2022-06-12 02:29:00 Demond [facility] EXTRA TUBE LT. GREEN 2022-06-12 00:00:00 Mariia Cardona [facility] EXTRA TUBE LT. GREEN 2022-06-12 00:00:00 Mariia Cardona [facility] BLOOD CULTURE SCREEN 2022-06-11 19:48:00 Leslie Espitia U [facility] BLOOD CULTURE SCREEN 2022-06-11 19:48:00 Leslie Espitia U [facility] BLOOD CULTURE SCREEN 2022-06-11 19:42:00 Leslie Espitia U [facility] BLOOD CULTURE SCREEN 2022-06-11 19:42:00 Leslie Espitia U [facility] TRANSESOPHAGEAL ECHO 2022-06-11 15:58:00 Siddharth Chicas [facility] ([facility]) COMPLETE W/ DOPPLER [facility] AND COLOR TRANSESOPHAGEAL ECHO 2022-06-11 15:58:00 Siddharth Chicas [facility] ([facility]) COMPLETE W/ DOPPLER [facility] AND COLOR ACTIVATED PARTIAL 2022-06-11 14:52:00 Demond [facility] ACTIVATED PARTIAL 2022-06-11 14:52:00 Demond [facility] PROTHROMBIN TIME / INR 2022-06-11 08:57:00 Mariia Cardona Un [facility] BASIC METABOLIC PANEL 2022-06-11 08:57:00 Les Ortega [facility] (NA, K, CL, CO2, GLUCOSE, Medica l Branch BUN, CREATININE, CA) MAGNESIUM 2022-06-11 08:57:00 Les Ortega [facility] ACTIVATED PARTIAL 2022-06-11 08:57:00 Demond [facility] MAGNESIUM 2022-06-11 08:57:00 Les Ortega [facility] BASIC METABOLIC PANEL 2022-06-11 08:57:00 Les Ortega [facility] (NA, K, CL, CO2, GLUCOSE, Medica l Branch BUN, CREATININE, CA) PROTHROMBIN TIME / INR 2022-06-11 08:57:00 Mariia Cardona [facility] ACTIVATED PARTIAL 2022-06-11 08:57:00 Demond [facility] HB ECG ROUTINE & RHYTHM 2022-06-11 07:47:48 [facility] 2022-06-10 20:19:00 Demond [facility] ACTIVATED PARTIAL 2022-06-10 20:19:00 Demond [facility] HB ECG ROUTINE & RHYTHM 2022-06-10 16:35:44 [facility]OUTINE & RHYTHM 2022-06-10 16:35:44 [facility] MAGNESIUM 2022-06-10 08:20:00 Omkar eda [facility] BASIC METABOLIC PANEL 2022-06-10 08:20:00 Omkar eda [facility] (NA, K, CL, CO2, GLUCOSE, Medica l Branch BUN, CREATININE, CA) CBC WITH DIFF 2022-06-10 08:20:00 [facility]ai[facility] / INR 2022-06-10 08:20:00 Omkar eda [facility] ACTIVATED PARTIAL 2022-06-10 08:20:00 Demond [facility] MAGNESIUM 2022-06-10 08:20:00 [facility] BASIC METABOLIC PANEL 2022-06-10 08:20:00 [facility] ([facility], K, CL, CO2, GLUCOSE, Medica l Branch BUN, CREATININE, CA) CBC WITH DIFF 2022-06-10 08:20:00 Omkar eda [facility] PROTHROMBIN TIME / INR 2022-06-10 08:20:00 Leslie Espitia [facility] ACTIVATED PARTIAL 2022-06-10 08:20:00 Demond, [facility] EKG-12 LEAD 2022-06-10 04:08:10 Rebeca Holcomb [facility] ACTIVATED PARTIAL 2022-06-09 23:33:00 Demond, [facility] ACTIVATED PARTIAL 2022-06-09 23:33:00 Demond, [facility] ACTIVATED PARTIAL 2022-06-09 22:22:00 Demond, [facility] ACTIVATED PARTIAL 2022-06-09 22:22:00 Demond, [facility] BASIC METABOLIC PANEL 2022-06-09 20:19:00 Demond [facility] (NA, K, CL, CO2, GLUCOSE, Medica l Branch BUN, CREATININE, CA) BASIC METABOLIC PANEL 2022-06-09 20:19:00 Demond [facility] (NA, K, CL, CO2, GLUCOSE, Medica l Branch BUN, CREATININE, CA) HB ECG ROUTINE & RHYTHM 2022-06-09 16:45:40 Demond [facility] HB ECG ROUTINE & RHYTHM 2022-06-09 16:45:40 Demond, [facility] MAGNESIUM 2022-06-09 10:03:00 Leslie Espitia [facility] BASIC METABOLIC PANEL 2022-06-09 10:03:00 Leslie Espitia [facility] (NA, K, CL, CO2, GLUCOSE, Medica l Branch BUN, CREATININE, CA) CBC WITH DIFF 2022-06-09 10:03:00 Leslie Espitia [facility] PROTHROMBIN TIME / INR 2022-06-09 10:03:00 Kirk HemMariia wright [facility] MAGNESIUM 2022-06-09 10:03:00 Leslie Espitia [facility] BASIC METABOLIC PANEL 2022-06-09 10:03:00 Leslie Espitia [facility] (NA, K, CL, CO2, GLUCOSE, Medica l Branch BUN, CREATININE, CA) CBC WITH DIFF 2022-06-09 10:03:00 [facility] / INR 2022-06-09 10:03:00 Mariia Cardona [facility] EKG-12 LEAD 2022-06-09 04:12:20 Mariia Cardona [facility] EKG-12 LEAD 2022-06-09 04:12:20 [facility] / INR 2022-06-08 17:35:00 Leslie Espitia [facility] PROTHROMBIN TIME / INR 2022-06-08 17:35:00 Leslie Espitia [facility] EKG-12 LEAD 2022-06-08 17:18:35 Kirk Hemlevi [facility] EKG-12 LEAD 2022-06-08 17:18:35 Kirk HemMariia wright [facility] MAGNESIUM 2022-06-08 10:46:00 [facility] BASIC METABOLIC PANEL 2022-06-08 10:46:00 Leslie Espitia [facility] (NA, K, CL, CO2, GLUCOSE, Medica l Branch BUN, CREATININE, CA) CBC WITH DIFF 2022-06-08 10:46:00 Leslie Espitia [facility] MAGNESIUM 2022-06-08 10:46:00 Omkar eda Devine [facility] BASIC METABOLIC PANEL 2022-06-08 10:46:00 Leslie Espitia [facility] (NA, K, CL, CO2, GLUCOSE, Medica l Branch BUN, CREATININE, CA) CBC WITH DIFF 2022-06-08 10:46:00 Omkar eda [facility] EKG-12 LEAD 2022-06-08 03:55:51 Kirk Connell [facility] EKG-12 LEAD 2022-06-08 03:55:51 Kirk Connell [facility] TRANSTHORACIC ECHO (TTE) 2022-06-07 17:56:10 Kirk Connell [facility] TRANSTHORACIC ECHO (TTE) 2022-06-07 17:56:10 Kirk Connell [facility] HB ECG ROUTINE & RHYTHM 2022-06-07 15:36:46 Leslie Espitia [facility] HB ECG ROUTINE & RHYTHM 2022-06-07 15:36:46 Leslie Espitia [facility] URINE DRUG (LCMSMS) - 2022-06-07 15:01:00 Opal Yen [facility] COMPREHENSIVE DRUG [facility] Medical Branch URINE DRUG (LCMSMS) - 2022-06-07 15:01:00 Opal Yen [facility] COMPREHENSIVE DRUG PANEL Medical Branch CBC WITH DIFF 2022-06-07 10:51:00 Opal Yen [facility] BASIC METABOLIC PANEL 2022-06-07 10:51:00 Opal Yen [facility] (NA, K, CL, CO2, GLUCOSE, Medica l Branch BUN, CREATININE, CA) IRON PANEL 2022-06-07 10:51:00 Opal Yen [facility] BASIC METABOLIC PANEL 2022-06-07 10:51:00 Opal Yen [facility] [place] (NA, K, CL, CO2, GLUCOSE, Medica l Branch BUN, CREATININE, CA) IRON PANEL 2022-06-07 10:51:00 Opal Yen [facility] CBC WITH DIFF 2022-06-07 10:51:00 Opal Yen [facility] BASIC METABOLIC PANEL 2022-06-07 02:29:00 Opal Yen [facility] sity [facility] (NA, K, CL, CO2, GLUCOSE, Medica l Branch BUN, CREATININE, CA) HEPATIC FUNCTION PANEL 2022-06-07 02:29:00 Opal Yen [facility] ([id number]) (ALB,T.PRO,BILI Medical Branch T,BU/BC,ALT,AST,ALK PHOS) MAGNESIUM 2022-06-07 02:29:00 Opal Yen [facility] FOLATE 2022-06-07 02:29:00 Opal Yen [facility] MAGNESIUM 2022-06-07 02:29:00 Opal Yen [facility] FOLATE 2022-06-07 02:29:00 Opal Yen [facility] HEPATIC FUNCTION PANEL 2022-06-07 02:29:00 Opal Yen [facility] ([id number]) (ALB,T.PRO,BILI Medical Branch T,BU/BC,ALT,AST,ALK PHOS) BASIC METABOLIC PANEL 2022-06-07 02:29:00 Opal Yen [facility] (NA, K, CL, CO2, GLUCOSE, Medica l Branch BUN, CREATININE, CA) HB ECG ROUTINE & RHYTHM 2022-06-07 00:50:00 Opal Yen [facility] / INR 2022-06-07 00:33:00 Opal Yen [facility] ACTIVATED PARTIAL 2022-06-07 00:33:00 Opal Yen [facility] CBC WITH DIFF 2022-06-07 00:33:00 Opal Yen [facility] FERRITIN SERUM 2022-06-07 00:33:00 Opal Yen [facility] VITAMIN B12, LEVEL 2022-06-07 00:33:00 Opal Yen [facility] FERRITIN SERUM 2022-06-07 00:33:00 Opal Yen [facility] VITAMIN B12, LEVEL 2022-06-07 00:33:00 Opal Yen [facility] CBC WITH DIFF 2022-06-07 00:33:00 Opal Yen [facility] PROTHROMBIN TIME / INR 2022-06-07 00:33:00 Opal Yen Unive [facility] ACTIVATED PARTIAL 2022-06-07 00:33:00 Opal Yen [facility] PROTHROMBIN TIME / INR 2022-06-06 16:10:00 [place] Dan [facility] HOSPITAL ADMISSION 2022-06-06 06:01:00 Doctor Unassigned, No Uni versity [facility] CBC W/PLT COUNT & AUTO 2022-05-27 04:37:[address] [facility] PROTHROMBIN TIME/INR 2022-05-27 04:37:00 Katarina Cabrera [facility] MAGNESIUM 2022-05-27 04:37:00 Meaghan [place] [facility] BASIC METABOLIC PANEL 2022-05-27 04:37:00 Meaghan [place] [facility] CBC W/PLT COUNT & AUTO 2022-05-27 04:37:[address] [facility] APTT 2022-05-26 09:28:[address] [facility] CBC W/PLT COUNT & AUTO 2022-05-26 06:27:00 [facility]ina [facility] PROTHROMBIN TIME/INR 2022-05-26 06:27:00 Katarina Cabrera [facility] MAGNESIUM 2022-05-26 06:27:00 Meaghan [place] [facility] BASIC METABOLIC PANEL 2022-05-26 06:27:00 Meaghan [place] [facility] APTT 2022-05-26 06:27:00 Efrain, [facility] CBC W/PLT COUNT & AUTO 2022-05-26 06:27:00 Katarina Cabrera [facility] APTT 2022-05-26 00:28:00 Efrain, [facility] APTT 2022-05-25 22:25:00 Borger, [facility] APTT 2022-05-25 14:41:00 Borger, [facility] APTT 2022-05-25 12:13:00 Efrain, [facility] BASIC METABOLIC PANEL 2022-05-25 07:29:00 Robert, [facility] MAGNESIUM 2022-05-25 07:29:00 Robert, [facility] ECG 12-LEAD 2022-05-25 06:42:59 Unknown, Hl7 [facility] ECG 12-LEAD 2022-05-25 06:42:59 Robert, [facility] ECG 12-LEAD 2022-05-25 06:42:59 Unknown, Hl7 [facility] APTT 2022-05-25 05:57:00 Efrain, [facility] APTT 2022-05-25 04:47:[address] [facility] CBC W/PLT COUNT & AUTO 2022-05-25 03:20:00 RickKatarina [facility] PROTHROMBIN TIME/INR 2022-05-25 03:20:00 [facility] 2022-05-25 03:20:00 Meaghan [place] [facility] CBC W/PLT COUNT & AUTO 2022-05-25 03:20:00 RickKatarina [facility] APTT 2022-05-24 20:02:[address] [facility] APTT 2022-05-24 17:36:00 Efrain, [facility] APTT 2022-05-24 10:31:00 Rick, [facility] APTT 2022-05-24 03:41:00 Borger, [facility] APTT 2022-05-24 01:14:00 Efrain, [facility] CBC W/PLT COUNT & AUTO 2022-05-24 01:14:00 Rick, [facility] BASIC METABOLIC PANEL 2022-05-24 01:14:00 Rick, [facility] MAGNESIUM 2022-05-24 01:14:00 Rick, [facility] PHOSPHORUS 2022-05-24 01:14:00 Rick, [facility] PROTHROMBIN TIME/INR 2022-05-24 01:14:00 Rick, [facility] CBC W/PLT COUNT & AUTO 2022-05-24 01:14:00 Rick, [facility] APTT 2022-05-23 18:18:00 [facility] 2022-05-23 16:11:00 Pagan [facility] APTT 2022-05-23 08:24:00 Pagan [facility] CBC W/PLT COUNT & AUTO 2022-05-23 04:23:00 Rick, [facility] BASIC METABOLIC PANEL 2022-05-23 04:23:00 Rick, [facility] MAGNESIUM 2022-05-23 04:23:00 Rick, [facility] PHOSPHORUS 2022-05-23 04:23:00 Rick, [facility] PROTHROMBIN TIME/INR 2022-05-23 04:23:00 Rick, [facility] APTT 2022-05-23 04:23:00 Borger, [facility] CBC W/PLT COUNT & AUTO 2022-05-23 04:23:00 Rick, [facility] APTT 2022-05-22 20:49:[address] [facility] HEMOGLOBIN AND HEMATOCRIT 2022-05-22 17:54:00 Rick, [facility] APTT 2022-05-22 13:59:[address] [facility] CBC W/PLT COUNT & AUTO 2022-05-22 02:47:00 Rick, [facility] BASIC METABOLIC PANEL 2022-05-22 02:47:00 Rick, [facility] MAGNESIUM 2022-05-22 02:47:00 Rick, [facility] PHOSPHORUS 2022-05-22 02:47:00 Rick, [facility] PROTHROMBIN TIME/INR 2022-05-22 02:47:00 Rick, [facility] APTT 2022-05-22 02:47:[address] [facility] CBC W/PLT COUNT & AUTO 2022-05-22 02:47:00 Rick, [facility] PREPARE RBC 2022-05-21 23:54:00 AdhiVinayak [facility] HEMOGLOBIN AND HEMATOCRIT 2022-05-21 21:35:00 Rick, [facility] PROTHROMBIN TIME/INR 2022-05-21 14:45:00 Rick, [facility] APTT 2022-05-21 14:45:[address] [facility] 2D ECHO W/ DOPPLER 2022-05-21 13:06:46 Vitaly Flores [facility] (CW/PW/COLOR) [facility] 2D ECHO W/ DOPPLER 2022-05-21 13:06:46 Vitaly Flores [facility] (CW/PW/COLOR) [facility] HEMOGLOBIN AND HEMATOCRIT 2022-05-21 12:50:00 [facility] IF INDICATED 2022-05-21 12:50:00 [facility] 08:34:[address] [facility] CBC W/PLT COUNT & AUTO 2022-05-21 05:00:00 Rick, [facility] BASIC METABOLIC PANEL 2022-05-21 05:00:00 Rick [facility] MAGNESIUM 2022-05-21 05:00:00 Rick [facility] PHOSPHORUS 2022-05-21 05:00:00 Rick, [facility] CBC W/PLT COUNT & AUTO 2022-05-21 05:00:[address] [facility] PROTHROMBIN TIME/INR 2022-05-21 01:15:00 Rick [facility] APTT 2022-05-21 01:15:[address] [facility] HEMOGLOBIN AND HEMATOCRIT 2022-05-20 20:25:00 Rick, Katarina [facility] PROTHROMBIN TIME/INR 2022-05-20 17:07:00 Rick, [facility] APTT 2022-05-20 17:07:00 Lynnette Hsu [facility] HEMOGLOBIN AND HEMATOCRIT 2022-05-20 13:03:00 Rick Katarina [facility] APTT 2022-05-20 13:02:00 Shadi Church [facility] TRANSFUSE LEUKO-REDUCED 2022-05-20 08:38:00 Damir Joyce [facility] RED BLOOD CELLS [facility] PREPARE RBC 2022-05-20 08:19:00 Vinayak Cook [facility] APTT 2022-05-20 05:03:00 [facility] W/PLT COUNT & AUTO 2022-05-20 03:36:00 Rick, [facility] BASIC METABOLIC PANEL 2022-05-20 03:36:00 Rick [facility] MAGNESIUM 2022-05-20 03:36:00 Rick [facility] PHOSPHORUS 2022-05-20 03:36:00 Rick [facility] PROTHROMBIN TIME/INR 2022-05-20 03:36:00 Rick, [facility] CBC W/PLT COUNT & AUTO 2022-05-20 03:36:00 Rick, [facility] APTT 2022-05-19 22:59:[address] [facility] HEMOGLOBIN AND HEMATOCRIT 2022-05-19 21:17:00 Rick [facility] PROTHROMBIN TIME/INR 2022-05-19 17:05:00 Rick, [facility] APTT 2022-05-19 17:05:[address] [facility] HEMOGLOBIN AND HEMATOCRIT 2022-05-19 12:11:00 Rick, [facility] PROTHROMBIN TIME/INR 2022-05-19 12:11:00 Efrain [facility] ECG 12-LEAD 2022-05-19 11:39:33 Unknown, Hl7 [facility] ECG 12-LEAD 2022-05-19 11:39:33 Vitaly Flores [facility] ECG 12-LEAD 2022-05-19 11:39:33 Unknown, Hl7 [facility] POCT-GLUCOSE METER 2022-05-19 05:28:00 Shadi Church [facility] CBC W/PLT COUNT & AUTO 2022-05-19 03:08:[address] [facility] CBC W/PLT COUNT & AUTO 2022-05-19 03:08:00 Rick, [facility] BASIC METABOLIC PANEL 2022-05-19 03:07:00 Rick, [facility] MAGNESIUM 2022-05-19 03:07:00 Rick, [facility] PHOSPHORUS 2022-05-19 03:07:00 Rick, [facility] PROTHROMBIN TIME/INR 2022-05-19 03:07:00 Rick [facility] POCT-GLUCOSE METER 2022-05-18 23:02:00 Adhi Sharp [facility] ECG 12-LEAD 2022-05-18 21:08:01 Unknown, Hl7 [facility] ECG 12-LEAD 2022-05-18 21:08:[address] [facility] ECG 12-LEAD 2022-05-18 21:08:01 Unknown, Hl7 [facility] BUN AND CREATININE 2022-05-18 20:38:00 [facility] W/RATIO [facility] POTASSIUM 2022-05-18 20:38:00 [facility]22-05-18 20:38:00 [facility] HEMOGLOBIN AND HEMATOCRIT 2022-05-18 20:01:00 Rick [facility] POCT-GLUCOSE METER 2022-05-18 18:56:00 Adhdanii Sharp [facility] CTA ABDOMEN & PELVIS 2022-05-18 17:42:00 Rick, [facility] URINALYSIS W/ REFLEX 2022-05-18 15:23:00 Rick, [facility] URINE CULTURE [facility] PROTHROMBIN TIME/INR 2022-05-18 15:23:00 Rick, [facility] HIGH SENSITIVITY TROPONIN 2022-05-18 15:23:00 Rick, [facility] URINE CULTURE 2022-05-18 15:23:00 Rick [facility] CBC (HEMOGRAM ONLY) 2022-05-18 13:05:00 Rick, [facility] CALCIUM, IONIZED 2022-05-18 13:05:00 Rick, [facility] POCT-GLUCOSE METER 2022-05-18 12:55:00 Sean Graham [facility] ABORH, MANUAL 2022-05-18 11:55:00 Floridalma Monsalve [facility] TYPE AND SCREEN, 2022-05-18 11:02:00 Rick, [facility] COMPREHENSIVE METABOLIC 2022-05-18 11:01:00 Rick, [facility] PANEL [facility] MAGNESIUM 2022-05-18 11:01:00 Rick, [facility] PHOSPHORUS 2022-05-18 11:01:00 Rick, [facility] LACTIC ACID, VENOUS 2022-05-18 11:01:00 Rick, [facility] LIPASE 2022-05-18 11:01:00 Rick, [facility] B-TYPE NATRIURETIC FACTOR 2022-05-18 11:01:00 Rick, [facility] (BNP) [facility] PT/APTT 2022-05-18 11:00:00 Rick, [facility] FIBRINOGEN 2022-05-18 11:00:00 Rick, [facility] ECG 12-LEAD 2022-05-18 10:34:14 Unknown, Hl7 Doctor [facility] ECG 12-LEAD 2022-05-18 10:34:14 Rick, [facility] ECG 12-LEAD 2022-05-18 10:34:14 Unknown, Hl7 [facility] HB ECG ROUTINE & RHYTHM 2022-05-10 17:51:31 Wayne Rabago [facility] [place] PROTHROMBIN TIME / INR 2022-05-09 16:24:00 [place] Dan [facility] CONSENT/REFUSAL FOR 2022-05-09 16:13:00 Doctor Unassigned, [facility] Name Medical Branch ASSIGNMENT OF BENEFITS 2022-05-09 16:12:36 Doctor Unassigned, No [facility] Name Medical Branch ASSIGNMENT OF BENEFITS 2022-05-09 16:12:36 Doctor Unassigned, No [facility] Medical Branch PROTHROMBIN TIME / INR 2022-04-11 15:46:00 [place] Dan [facility] CONSENT/REFUSAL FOR 2022-04-11 15:36:05 Doctor Unassigned, No [facility] [place] [facility] Name Medical Branch ASSIGNMENT OF BENEFITS 2022-04-11 15:35:52 Doctor Unassigned, No [facility] Medical Branch ASSIGNMENT OF BENEFITS 2022-04-11 15:35:52 Doctor Unassigned, No [facility] MEDICATION CORRESPONDENCE 2022-03-18 06:01:00 Doctor Unassigned, No [facility] PROTHROMBIN TIME / INR 2022-03-14 15:29:00 [place] Dan [facility] CONSENT/REFUSAL FOR 2022-03-14 15:15:12 Doctor Unassigned, No Un iversity [facility] DIAGNOSIS AND TREATMENT Name Medical Branch ASSIGNMENT OF BENEFITS 2022-03-14 15:15:00 Doctor Unassigned, No [facility] Medical Branch ASSIGNMENT OF BENEFITS 2022-03-14 15:15:00 Doctor Unassigned, No [facility] CONSENT/REFUSAL FOR 2022-02-28 18:42:52 Doctor Unassigned, No [facility] [place] [facility]REATMENT [facility] CONSENT/REFUSAL FOR 2022-02-14 14:32:17 Doctor Unassigned, No [facility] [place] [facility]MENT [facility] Medical Branch ASSIGNMENT OF BENEFITS 2022-02-14 14:32:04 Doctor Unassigned, No [facility] Medical Branch ASSIGNMENT OF BENEFITS 2021-12-14 17:04:14 Doctor Unassigned, No [facility] HOSPITAL ADMISSION 2021-11-23 05:01:00 Doctor Unassigned, No [facility] Plan of Care Planned Activity Planned Date [...] breast Medical C enter (procedure) [code = [id number]] Future Scheduled 1953 CT Colonography (combo) [facility] 00:00:00 [code = CT Colonography [facility] (combo)] Future Scheduled 1953 Screening for malignant [facility] 00:00:00 neoplasm of colon Medical Ce nter (procedure) [code = 954647918] Future Scheduled 1953 Screening for malignant [facility] 00:00:00 neoplasm of colon Medical Ce nter (procedure) [code = 134094245] Future Scheduled 1953 DXA SCAN [code = DXA [facility] 00:00:00 SCAN] [facility] Future Scheduled 1953 Screening for malignant [facility] 00:00:00 neoplasm of colon Medical Ce nter (procedure) [code = 175195382] Future Scheduled 1953 Screening for malignant [facility] 00:00:00 neoplasm of colon Medical Ce nter (procedure) [code = 967846058] Future Scheduled 1953 Sigmoidoscopy [facility]code = [facility]] [facility] Future Scheduled 1953 Screening for malignant [facility] 00:00:00 neoplasm of breast Medical C enter (procedure) [code = 554139231] Future Scheduled 1953 CT Colonography (combo) [facility] 00:00:00 [code = CT Colonography [facility] (combo)] Future Scheduled 1953 Screening for malignant [facility] 00:00:00 neoplasm of colon Medical Ce nter (procedure) [code = 928989013] Future Scheduled 1953 Screening for malignant [facility] 00:00:00 neoplasm of colon Medical Ce nter (procedure) [code = 518874965] Future Scheduled 1953 DXA SCAN [code = DXA [facility] 00:00:00 SCAN] [facility] Future Scheduled 1953 Screening for malignant [facility] 00:00:00 neoplasm of colon Medical Ce nter (procedure) [code = 693729593] Future Scheduled 1953 Screening for malignant [facility] 00:00:00 neoplasm of colon Medical Ce nter (procedure) [code = 474828227] Future Scheduled 1953 Sigmoidoscopy [facility]code = [facility] S[facility]oscopy] [facility] Future Scheduled 1953 Screening for malignant [facility] 00:00:00 neoplasm of breast Medical C enter (procedure) [code = 249200415] Future Scheduled 1953 CT Colonography (combo) [facility] 00:00:00 [code = CT Colonography [facility] (combo)] Future Scheduled 1953 Screening for malignant [facility] 00:00:00 neoplasm of colon Medical Ce nter (procedure) [code = 244267200] Future Scheduled 1953 Screening for malignant [facility] 00:00:00 neoplasm of colon Medical Ce nter (procedure) [code = 031089280] Future Scheduled 1953 DXA SCAN [code = DXA [facility] 00:00:00 SCAN] [facility] Future Scheduled 1953 Screening for malignant [facility] 00:00:00 neoplasm of colon Medical Ce nter (procedure) [code = 680762563] Future Scheduled 1953 Screening for malignant [facility] 00:00:00 neoplasm of colon Medical Ce nter (procedure) [code = 442430445] Future Scheduled 1953 Sigmoidoscopy [code = [facility]] [facility] Future Scheduled 1953 Screening for malignant [facility] 00:00:00 neoplasm of breast Medical C enter (procedure) [code = 737106930] Future Scheduled 1953 CT Colonography (combo) [facility] 00:00:00 [code = CT Colonography [facility] (combo)] Future Scheduled 1953 Screening for malignant [facility] 00:00:00 neoplasm of colon Medical Ce nter (procedure) [code = 823042895] Future Scheduled 1953 Screening for malignant [facility] 00:00:00 neoplasm of colon Medical Ce nter (procedure) [code = 039659531] Future Scheduled 1953 DXA SCAN [code = DXA [facility] 00:00:00 SCAN] [facility] Future Scheduled 1953 Screening for malignant [facility] 00:00:00 neoplasm of colon Medical Ce nter (procedure) [code = 707220485] Future Scheduled 1953 Screening for malignant [facility] 00:00:00 neoplasm of colon Medical Ce nter (procedure) [code = 929020037] Future Scheduled 1953 Sigmoidoscopy [code = [facility]] [facility] Future Scheduled 1953 Screening for malignant [facility] 00:00:00 neoplasm of breast Medical C enter (procedure) [code = 362518416] Future Scheduled 1953 CT Colonography (combo) [facility] 00:00:00 [code = CT Colonography [facility] (combo)] Future Scheduled 1953 Screening for malignant [facility] 00:00:00 neoplasm of colon Medical Ce nter (procedure) [code = 827934777] Future Scheduled 1953 Screening for malignant [facility] 00:00:00 neoplasm of colon Medical Ce nter (procedure) [code = 850412064] Future Scheduled 1953 DXA SCAN [code = DXA [facility] 00:00:00 SCAN] [facility] Future Scheduled 1953 Screening for malignant [facility] 00:00:00 neoplasm of colon Medical Ce nter (procedure) [code = 358536122] Future Scheduled 1953 Screening for malignant [facility] 00:00:00 neoplasm of colon Medical Ce nter (procedure) [code = 756415214] Future Scheduled 1953 Sigmoidoscopy [code = [facility]] [facility] Future Scheduled 1953 Screening for malignant [facility] 00:00:00 neoplasm of breast Medical C enter (procedure) [code = 566987369] Future Scheduled 1953 CT Colonography (combo) [facility] 00:00:00 [code = CT Colonography [facility] (combo)] Future Scheduled 1953 Screening for malignant [facility] 00:00:00 neoplasm of colon Medical Ce nter (procedure) [code = 039116356] Future Scheduled 1953 Screening for malignant [facility] 00:00:00 neoplasm of colon Medical Ce nter (procedure) [code = 587485568] Future Scheduled 1953 DXA SCAN [code = DXA [facility] 00:00:00 SCAN] [facility] Future Scheduled 1953 Screening for malignant [facility] 00:00:00 neoplasm of colon Medical Ce nter (procedure) [code = 066524502] Future Scheduled 1953 Screening for malignant [facility] 00:00:00 neoplasm of colon Medical Ce nter (procedure) [code = 559831394] Future Scheduled 1953 Sigmoidoscopy [code = [facility] 00:[facility]] [facility] Future Scheduled 1953 Screening for malignant [facility] 00:00:00 neoplasm of breast Medical C enter (procedure) [code = 120766340] Future Scheduled 1953 CT Colonography (combo) [facility] 00:00:00 [code = CT Colonography [facility] (combo)] Future Scheduled 1953 Screening for malignant [facility] 00:00:00 neoplasm of colon Medical Ce nter (procedure) [code = 695913992] Future Scheduled 1953 Screening for malignant [facility] 00:00:00 neoplasm of colon Medical Ce nter (procedure) [code = 040423643] Future Scheduled 1953 DXA SCAN [code = DXA [facility] 00:00:00 SCAN] [facility] Future Scheduled 1953 Screening for malignant [facility] 00:00:00 neoplasm of colon Medical Ce nter (procedure) [code = 836338638] Future Scheduled 1953 Screening for malignant [facility] 00:00:00 neoplasm of colon Medical Ce nter (procedure) [code = 396326943] Future Scheduled 1953 Sigmoidoscopy [code = [facility]] [facility] 1953 Screening for malignant [facility] 00:00:00 neoplasm of breast Medical C enter (procedure) [code = 492292982] Future Scheduled 1953 CT Colonography (combo) [facility] 00:00:00 [code = CT Colonography [facility] (combo)] Future Scheduled 1953 Screening for malignant [facility] 00:00:00 neoplasm of colon Medical Ce nter (procedure) [code = 191960888] Future Scheduled 1953 Screening for malignant [facility] 00:00:00 neoplasm of colon Medical Ce nter (procedure) [code = 377214710] Future Scheduled 1953 DXA SCAN [code = DXA [facility] 00:00:00 SCAN] [facility] Future Scheduled 1953 Screening for malignant [facility] 00:00:00 neoplasm of colon Medical Ce nter (procedure) [code = 670561410] Future Scheduled 1953 Screening for malignant [facility] 00:00:00 neoplasm of colon Medical Ce nter (procedure) [code = 313226996] Future Scheduled 1953 Sigmoidoscopy [code = [facility] 00:[facility] S[facility]] [facility] Future Scheduled 1953 Screening for malignant [facility] 00:00:00 neoplasm of breast Medical C enter (procedure) [code = 968271462] Future Scheduled 1953 CT Colonography (combo) [facility] 00:00:00 [code = CT Colonography [facility] (combo)] Future Scheduled 1953 Screening for malignant [facility] 00:00:00 neoplasm of colon Medical Ce nter (procedure) [code = 635807102] Future Scheduled 1953 Screening for malignant [facility] 00:00:00 neoplasm of colon Medical Ce nter (procedure) [code = 702905702] Future Scheduled 1953 DXA SCAN [code = DXA [facility] 00:00:00 SCAN] [facility] Future Scheduled 1953 Screening for malignant [facility] 00:00:00 neoplasm of colon Medical Ce nter (procedure) [code = 341952687] Future Scheduled 1953 Screening for malignant [facility] 00:00:00 neoplasm of colon Medical Ce nter (procedure) [code = 890673584] Future Scheduled 1953 Sigmoidoscopy [code = [facility] 00:[facility] S[facility]oidoscopy] [facility] Future Scheduled 1953 Screening for malignant [facility] 00:00:00 neoplasm of breast Medical C enter (procedure) [code = 952807776] Future Scheduled 1953 CT Colonography (combo) [facility] 00:00:00 [code = CT Colonography [facility] (combo)] Future Scheduled 1953 Screening for malignant [facility] 00:00:00 neoplasm of colon Medical Ce nter (procedure) [code = 293258962] Future Scheduled 1953 Screening for malignant [facility] 00:00:00 neoplasm of colon Medical Ce nter (procedure) [code = 689259197] Future Scheduled 1953 DXA SCAN [code = DXA [facility] 00:00:00 SCAN] [facility] Future Scheduled 1953 Screening for malignant [facility] 00:00:00 neoplasm of colon Medical Ce nter (procedure) [code = 901270479] Future Scheduled 1953 Screening for malignant [facility] 00:00:00 neoplasm of colon Medical Ce nter (procedure) [code = 604719143] Future Scheduled 1953 Sigmoidoscopy [code = [facility]] [facility] Future Scheduled 1953 Screening for malignant [facility] 00:00:00 neoplasm of breast Medical C enter (procedure) [code = 339495541] Future Scheduled 1953 CT Colonography (combo) [facility] 00:00:00 [code = CT Colonography [facility] (combo)] Future Scheduled 1953 Screening for malignant [facility] 00:00:00 neoplasm of colon Medical Ce nter (procedure) [code = 629772113] Future Scheduled 1953 Screening for malignant [facility] 00:00:00 neoplasm of colon Medical Ce nter (procedure) [code = 633625847] Future Scheduled 1953 DXA SCAN [code = DXA [facility] 00:00:00 SCAN] [facility] Future Scheduled 1953 Screening for malignant [facility] 00:00:00 neoplasm of colon Medical Ce nter (procedure) [code = 820936593] Future Scheduled 1953 Screening for malignant [facility] 00:00:00 neoplasm of colon Medical Ce nter (procedure) [code = 226286117] Future Scheduled 1953 Sigmoidoscopy [code = [facility]] [facility] Future Scheduled 1953 Screening for malignant [facility] 00:00:00 neoplasm of breast Medical C enter (procedure) [code = 482860308] Future Scheduled 1953 CT Colonography (combo) [facility] 00:00:00 [code = CT Colonography [facility] (combo)] Future Scheduled 1953 Screening for malignant [facility] 00:00:00 neoplasm of colon Medical Ce nter (procedure) [code = 731086439] Future Scheduled 1953 Screening for malignant [facility] 00:00:00 neoplasm of colon Medical Ce nter (procedure) [code = 131784890] Future Scheduled 1953 DXA SCAN [code = DXA [facility] 00:00:00 SCAN] [facility] Future Scheduled 1953 Screening for malignant [facility] 00:00:00 neoplasm of colon Medical Ce nter (procedure) [code = 902103194] Future Scheduled 1953 Screening for malignant [facility] 00:00:00 neoplasm of colon Medical Ce nter (procedure) [code = 458218217] Future Scheduled 1953 Sigmoidoscopy [code = [facility]] [facility] Future Scheduled 1953 Screening for malignant [facility] 00:00:00 neoplasm of breast Medical C enter (procedure) [code = 964369793] Future Scheduled 1953 CT Colonography (combo) [facility] 00:00:00 [code = CT Colonography [facility] (combo)] Future Scheduled 1953 Screening for malignant [facility] 00:00:00 neoplasm of colon Medical Ce nter (procedure) [code = 033644378] Future Scheduled 1953 Screening for malignant [facility] 00:00:00 neoplasm of colon Medical Ce nter (procedure) [code = 434521227] Future Scheduled 1953 DXA SCAN [code = DXA [facility] 00:00:00 SCAN] [facility] Future Scheduled 1953 Screening for malignant [facility] 00:00:00 neoplasm of colon Medical Ce nter (procedure) [code = 760827371] Future Scheduled 1953 Screening for malignant [facility] 00:00:00 neoplasm of colon Medical Ce nter (procedure) [code = 705963177] Future Scheduled 1953 Sigmoidoscopy [code = [facility]] [facility] Future Scheduled 1953 Screening for malignant [facility] 00:00:00 neoplasm of breast Medical C enter (procedure) [code = 204988039] Future Scheduled 1953 CT Colonography (combo) [facility] 00:00:00 [code = CT Colonography [facility] (combo)] Future Scheduled 1953 Screening for malignant [facility] 00:00:00 neoplasm of colon Medical Ce nter (procedure) [code = 567510268] Future Scheduled 1953 Screening for malignant [facility] 00:00:00 neoplasm of colon Medical Ce nter (procedure) [code = 377501803] Future Scheduled 1953 DXA SCAN [code = DXA [facility] 00:00:00 SCAN] [facility] Future Scheduled 1953 Screening for malignant [facility] 00:00:00 neoplasm of colon Medical Ce nter (procedure) [code = 031859667] Future Scheduled 1953 Screening for malignant [facility] 00:00:00 neoplasm of colon Medical Ce nter (procedure) [code = 559551111] Future Scheduled 1953 Sigmoidoscopy [code = [facility]] [facility] Future Scheduled 1953 Screening for malignant [facility] 00:00:00 neoplasm of breast Medical C enter (procedure) [code = 700368568] Future Scheduled 1953 CT Colonography (combo) [facility] 00:00:00 [code = CT Colonography [facility] (combo)] Future Scheduled 1953 Screening for malignant [facility] 00:00:00 neoplasm of colon Medical Ce nter (procedure) [code = 574636520] Future Scheduled 1953 Screening for malignant [facility] 00:00:00 neoplasm of colon Medical Ce nter (procedure) [code = 051181674] Future Scheduled 1953 DXA SCAN [code = DXA [facility] 00:00:00 SCAN] [facility] Future Scheduled 1953 Screening for malignant [facility] 00:00:00 neoplasm of colon Medical Ce nter (procedure) [code = 672271552] Future Scheduled 1953 Screening for malignant [facility] 00:00:00 neoplasm of colon Medical Ce nter (procedure) [code = 400345988] Future Scheduled 1953 Sigmoidoscopy [code = [facility]] [facility] Future Scheduled 1953 Screening for malignant [facility] 00:00:00 neoplasm of breast Medical C enter (procedure) [code = 280139960] Future Scheduled 1953 CT Colonography (combo) [facility] 00:00:00 [code = CT Colonography [facility] (combo)] Future Scheduled 1953 Screening for malignant [facility] 00:00:00 neoplasm of colon Medical Ce nter (procedure) [code = 540610953] Future Scheduled 1953 Screening for malignant [facility] 00:00:00 neoplasm of colon Medical Ce nter (procedure) [code = 793021756] Future Scheduled 1953 DXA SCAN [code = DXA [facility] 00:00:00 SCAN] [facility] Future Scheduled 1953 Screening for malignant [facility] 00:00:00 neoplasm of colon Medical Ce nter (procedure) [code = 128489651] Future Scheduled 1953 Screening for malignant [facility] 00:00:00 neoplasm of colon Medical Ce nter (procedure) [code = 602557631] Future Scheduled 1953 Sigmoidoscopy [code = [facility]] [facility] Future Scheduled 1953 Screening for malignant [facility] 00:00:00 neoplasm of breast Medical C enter (procedure) [code = 735303803] Future Scheduled 1953 CT Colonography (combo) [facility] 00:00:00 [code = CT Colonography [facility] (combo)] Future Scheduled 1953 Screening for malignant [facility] 00:00:00 neoplasm of colon Medical Ce nter (procedure) [code = 503828177] Future Scheduled 1953 Screening for malignant [facility] 00:00:00 neoplasm of colon Medical Ce nter (procedure) [code = 394970407] Future Scheduled 1953 DXA SCAN [code = DXA [facility] 00:00:00 SCAN] [facility] Future Scheduled 1953 Screening for malignant [facility] 00:00:00 neoplasm of colon Medical Ce nter (procedure) [code = 234502199] Future Scheduled 1953 Screening for malignant [facility] 00:00:00 neoplasm of colon Medical Ce nter (procedure) [code = 592920091] Future Scheduled 1953 Sigmoidoscopy [code = [facility]] [facility] Future Scheduled 1953 Screening for malignant [facility] 00:00:00 neoplasm of breast Medical C enter (procedure) [code = 613988868] Future Scheduled 1953 CT Colonography (combo) [facility] 00:00:00 [code = CT Colonography [facility] (combo)] Future Scheduled 1953 Screening for malignant [facility] 00:00:00 neoplasm of colon Medical Ce nter (procedure) [code = 518150475] Future Scheduled 1953 Screening for malignant [facility] 00:00:00 neoplasm of colon Medical Ce nter (procedure) [code = 685282411] Future Scheduled 1953 DXA SCAN [code = DXA [facility] 00:00:00 SCAN] [facility] Future Scheduled 1953 Screening for malignant [facility] 00:00:00 neoplasm of colon Medical Ce nter (procedure) [code = 960534379] Future Scheduled 1953 Screening for malignant [facility] 00:00:00 neoplasm of colon Medical Ce nter (procedure) [code = 087485700] Future Scheduled 1953 Sigmoidoscopy [code = [facility]] [facility] Future Scheduled 1953 Screening for malignant [facility] 00:00:00 neoplasm of breast Medical C enter (procedure) [code = 634926485] Future Scheduled 1953 CT Colonography (combo) [facility] 00:00:00 [code = CT Colonography [facility] (combo)] Future Scheduled 1953 Screening for malignant [facility] 00:00:00 neoplasm of colon Medical Ce nter (procedure) [code = 603088685] Future Scheduled 1953 Screening for malignant [facility] 00:00:00 neoplasm of colon Medical Ce nter (procedure) [code = 661597343] Future Scheduled 1953 DXA SCAN [code = DXA [facility] 00:00:00 SCAN] [facility] Future Scheduled 1953 Screening for malignant [facility] 00:00:00 neoplasm of colon Medical Ce nter (procedure) [code = 973162140] Future Scheduled 1953 Screening for malignant [facility] 00:00:00 neoplasm of colon Medical Ce nter (procedure) [code = 044615491] Future Scheduled 1953 Sigmoidoscopy [code = [facility]] [facility] Future Scheduled 1953 Screening for malignant [facility] 00:00:00 neoplasm of breast Medical C enter (procedure) [code = 749212494] Future Scheduled 1953 CT Colonography (combo) [facility] 00:00:00 [code = CT Colonography [facility] (combo)] Future Scheduled 1953 Screening for malignant [facility] 00:00:00 neoplasm of colon Medical Ce nter (procedure) [code = 574472177] Future Scheduled 1953 Screening for malignant [facility] 00:00:00 neoplasm of colon Medical Ce nter (procedure) [code = 268997004] Future Scheduled 1953 DXA SCAN [code = DXA [facility] 00:00:00 SCAN] [facility] Future Scheduled 1953 Screening for malignant [facility] 00:00:00 neoplasm of colon Medical Ce nter (procedure) [code = 337294136] Future Scheduled 1953 Screening for malignant [facility] 00:00:00 neoplasm of colon Medical Ce nter (procedure) [code = 848032438] Future Scheduled 1953 Sigmoidoscopy [code = [facility]] [facility] Future Scheduled 1953 Screening for malignant [facility] 00:00:00 neoplasm of breast Medical C enter (procedure) [code = 006599123] Future Scheduled 1953 CT Colonography (combo) [facility] 00:00:00 [code = CT Colonography [facility] (combo)] Future Scheduled 1953 Screening for malignant [facility] 00:00:00 neoplasm of colon Medical Ce nter (procedure) [code = 082826702] Future Scheduled 1953 Screening for malignant [facility] 00:00:00 neoplasm of colon Medical Ce nter (procedure) [code = 662995289] Future Scheduled 1953 DXA SCAN [code = DXA [facility] 00:00:00 SCAN] [facility] Future Scheduled 1953 Screening for malignant [facility] 00:00:00 neoplasm of colon Medical Ce nter (procedure) [code = 711670569] Future Scheduled 1953 Screening for malignant [facility] 00:00:00 neoplasm of colon Medical Ce nter (procedure) [code = 954541623] Future Scheduled 1953 Sigmoidoscopy [code = [facility] Start End Encounter Admission Attending Care Care Encounter Source Date/Time Date/Time Type Type Clinicians Facility Department ID 2023-02-28 Outpatient IBRAHIM, STLMLC [facility] [id number] Common 11:50:00 DANIEL [id number] [facility] 2023-02-19 Outpatient IBRAHIM, ST[facility] [id number] Common 09:55:00 DANIEL [id number] [facility] 2022-09-13 Outpatient IBRAHIM, STLC [facility] [id number] Common 13:24:02 DANIEL [id number] [facility] 2022-08-16 Outpatient IBRAHIM, STLC [facility] [id number] Common 12:00:01 DANIEL [id number] [facility] 2022-08-15 Outpatient IBRAHIM, STLC [facility] [id number] Common 15:12:01 DANIEL [id number] [facility] 2022-08-14 Outpatient Dobson, STLMLC [facility] [id number] Common 08:50:01 Saurabh [id number] [facility] 2022-06-05 Inpatient R MARIIA CARDONA [facility] [id number] Univers 07:56:00 [facility] R REBECA HOLCOMB [facility] [id number] Univers 15:24:[address] [facility] [address] [facility] 2021-09-21 Outpatient Dobson, [facility]LMLC [facility] [id number] Common 10:27:03 Saurabh [id number] [facility] 2023-06-20 2023-06-20 Outpatient R GEETA KOROMA [facility] [id number] Univers 14:00:00 14:00:00 GEETA KOROMA [facility] 2023-06-13 2023-06-13 Outpatient R GEETA KOROMA [facility] [id number] Univers 14:00:00 14:00:00 GEETA KOROMA [facility] 2023-02-28 2023-02-28 Outpatient R [facility] [id number] Univers 11:20:00 11:20:00 [place] perez o [facility] 2023-02-13 2023-02-13 [facility] 1.2.840.114 [id number] Univers 13:40:00 13:50:00 Visit [place] ARANDA 350.1.13.10 [facility] 4.2.7.2.686 Jose Elias s PROFESSIO [phone] [place] 233169 [facility] 2023-02-13 2023-02-13 Outpatient R [facility] [id number] Univers 13:40:00 13:40:00 [place] perez o [facility] 2023-02-13 2023-02-13 [facility] 1.2.762.646 [id number] Univers 00:00:00 00:00:00 [place] ARANDA 350.1.13.10 ity of [facility] 4.2.7.2.[place] [id number] Oh dical NAL 059 [facility] 2023-02-12 2023-02-12 Outpatient R [facility] [id number] Univers 10:30:00 10:30:00 ity of [facility] 2023-02-08 2023-02-08 [facility] 1.2.840.114 [id number] Univers 00:00:00 00:00:00 [place] ARANDA 350.1.13.10 ity of [facility] 4.2.7.2.[place] [phone] Oh dical NAL 059 [facility] 2023-02-07 2023-02-07 Outpatient R GEETA KOROMA [facility] [id number] Univers 15:00:00 15:00:00 GEETA KOROMA [facility] 2023-02-07 2023-02-07 Social Sciences Instructor Andre Osei Lab Main [facility] 1.2.8 40.114 [id number] Univers 14:00:00 14:15:00 Visit Geeta Koroma 350.1 .13.10 ity of [facility] 4.2.7.2.[place] [phone] Oh dical NAL 353 [facility] 2023-02-07 2023-02-07 Outpatient R GEETA KOROMA [facility] [id number] Univers 13:20:00 13:35:[address] [facility] 2023-02-05 2023-02-05 Transition DONNY GamezYandy 1.2.840.114 [id number] Univers 00:00:00 00:00:00 of Thao SAMANIEGO 350.1.13.10 it y of [place]2.7.2.[place] [id number] [place] [address] [place] 2023-02-02 2023-02-03 Outpatient X AMADEO [facility] [id number] Univers 12:13:00 14:11:[address] [facility] 2023-02-022023-02-03 Emergency Mazin Merrill [facility] 1.2.840. 114 [id number] Univers 12:13:00 14:11:00 Rao Childs 350.1.13.10 ity of [place].7.[place] [id number] [facility] 081 [place] 2023-02-01 2023-02-01 [facility]phone [facility] 1.2.940.319 [id number] Univers 00:00:00 00:00:00 [place] ARANDA 350.1.13.10 ity of [place] 4.2.7.2.[place] [id number] Oh dical NAL 059 [facility] 2023-01-31 2023-01-31 [facility] 1.2.840.114 [id number] Univers 13:40:00 13:50:00 Visit [place] ARANDA 350.1.13.10 ity of [place] 4.2.7.2.[place] [id number] Oh dical NAL 059 [facility] 2023-01-31 2023-01-31 Social Sciences Instructor Farnaz, Adc Lab Main [facility] 1.2.8 40.114 [id number] Univers 12:15:00 12:30:00 Visit Sy [place] ARANDA 350.1.13.10 ity of [place] 4.2.7.2.686 [place] [id number] Oh dickirk NAL 353 [facility] 2023-01-31 2023-01-31 Outpatient R SY [facility] [id number] Univers 12:15:00 12:15:00 [place] perez o f [facility] 2023-01-25 2023-01-25 [facility]phone [facility] 1.2.985.591 [id number] [facility] 00:00:00 00:00:00 [place] ARANDA 350.1.13.10 ity of [place] 4.2.7.2.[place] [id number] Oh dical NAL 059 [facility] 2023-01-16 2023-01-16 [facility]phone [facility] 1.2.272.888 [id number] [id number] Univers 00:00:00 00:00:00 [place] ARANDA 350.1.13.10 ity of [place] 4.2.7.2.[place] 559.4838311 Oh dical NAL 059 [facility] 2023-01-14 2023-01-14 Transition ALESIA Mulligan 1.2.840.114 [id number] Univers 00:00:00 00:00:00 of Care Jeremy SAMANIEGO 350.1.13.10 ity of [place].2.7.2.[place] [id number] [place] [address] [place] 2023-01-06 2023-01-11 Inpatient X KIRK [facility]IV[facility]VI [facility] [id number] Univers 17:42:00 18:20:00 AL HEMLEVI [facility] ity of [facility] 2023-01-06 2023-01-11 Hospital Babita Iglesias 1.2.840. 114 [id number] Univers 17:42:00 18:20:00 Encounter Rao Childs 350.1.13.10 ity of [facility] 4.2.7.2.686 [place] Alicia Smith [id number] [address] 2023-01-08 2023-01-08 Telephone [facility] 1.2.962.048 [id number] Univers 00:00:00 00:00:00 [place] ARANDA 350.1.13.10 ity of [place] 4.2.7.2.[place] [id number] Oh dicwy NAL 9 [facility] 2023-01-04 2023-01-04 Office [facility] 1.2.840.114 [id number] Univers 09:00:00 10:13:03 Visit [place] ARANDA 350.1.13.10 ity of [place] 4.2.7.2.[place] [id number] Oh dicwy NAL 9 [facility] 2023-01-04 2023-01-04 Social Sciences Instructor Farnaz, Andre Lab Main [facility] 1.2.8 40.114 [id number] Univers 09:15:00 09:30:00 Visit Sy [place] ARANDA 350.1.13.10 ity of [place] 4.2.7.2.686 [place] [id number] Oh dical NAL 353 [facility] 2023-01-04 2023-01-04 Outpatient R [facility] [id number] Univers 09:15:00 09:15:00 [place] ity o f [facility] 2023-01-04 2023-01-04 [facility]phone [facility] 1.2.497.528 [id number] Univers 00:00:00 00:00:00 [place] ARANDA 350.1.13.10 ity of [facility] 4.2.7.2.[place] [phone] [facility] 059 [facility] 2022-12-20 2022-12-20 Office Woodrow [facility] 1.2.840.114 [id number] Univers 16:00:00 16:00:00 Visit Cornelius ARANDA 350.1.13.10 ity of yojana [place] 4.2.7.2.686 [place] [id number] [place] 233169 [facility] 2022-12-20 2022-12-20 Outpatient R GEETA KOROMA [facility] [id number] Univers 16:00:00 15:54:49 GEETA KOROMA ity of [facility] 2022-12-20 2022-12-20 Orders Doctor JOHANN 1.2.840.114 [id number] Univers 00:00:00 00:00:00 Only Unassigned, MIKE 350.1.13.10 ity of [place] [facility] 4.2.7.2.686 Babak as [phone] [address] 2022-12-19 2022-12-19 [facility]ill [facility] 1.2.840.114 [id number] Univers 00:00:00 00:00:00 Rogerzaheer ROSI 350.1.13.10 ity of [place].2.[place] [id number] [address] BUILDING 2022-12-18 2022-12-18 Outpatient R [facility] [id number] Univers 14:00:00 15:11:16 [place] scotty o f [facility] 2022-12-18 2022-12-18 Office [facility] 1.2.840.114 [id number] Univers 14:00:00 14:10:00 Visit [place] ARANDA 350.1.13.10 ity of [facility] 4.2.7.2.[place] [phone] [address] 2022-12-18 2022-12-18 Telephone [facility] 1.2.697.738 [id number] Univers 00:00:00 00:00:00 [place] ARANDA 350.1.13.10 ity of [facility] 4.2.7.2.[place] [phone] [address] 2022-12-06 2022-12-06 Office [facility] 1.2.840.114 [id number] Univers 09:00:00 09:00:00 Visit [place] ARANDA 350.1.13.10 ity of [facility] 4.2.7.2.[place] [id number] [address] 2022-12-06 2022-12-06 Outpatient R [facility] [id number] Univers 09:00:00 08:31:45 [place] perez o abigail [facility] 2022-12-06 2022-12-06 Orders Doctor JOHANN 1.2.840.114 [id number] Univers 00:00:00 00:00:00 Only Unassigned, MIKE 350.1.13.10 ity of [place] [facility] 4.2.7.2.686 Babak as [id number] [address] 2022-12-05 2022-12-05 Telephone [facility] 1.2.445.212 [id number] [id number] Univers 00:00:00 00:00:00 [place] ARANDA 350.1.13.10 ity of [facility] 4.2.7.2.[place] [id number] Oh dical NAL 9 [facility] 2022-11-30 2022-11-30 Outpatient R [facility] [id number] Univers 13:30:00 15:31:28 [place] ity o f [facility] 2022-11-30 2022-11-30 Office [facility] 1.2.840.114 [id number] Univers 13:30:00 15:31:28 Visit [place] ARANDA 350.1.13.10 ity of [facility] 4.2.7.2.[place] [id number] Oh dical NAL [address] [place] [address] 2022-11-30 2022-11-30 Telephone [facility] 1.2.094.505 [id number] [id number] Univers 00:00:00 00:00:00 [place] ARANDA 350.1.13.10 ity of [facility] 4.2.7.2.[place] [id number] [address] 2022-11-25 2022-11-25 Telephone [facility] 1.2.359.209 [id number] Univers 00:00:00 00:00:00 [place] ARANDA 350.1.13.10 ity of [facility] 4.2.7.2.[place] [id number] [address] 2022-11-24 2022-11-24 Orders Doctor JOHANN 1.2.840.114 [id number] Univers 00:00:00 00:00:00 Only Unassigned, MIKE 350.1.13.10 ity of [place] [facility] 4.2.7.2.686 Babak as [id number] [address] 2022-11-22 2022-11-22 Telephone [facility] 1.2.460.852 [id number] [id number] Univers 00:00:00 00:00:00 [place] ARANDA 350.1.13.10 ity of [facility] 4.2.7.2.[place] 823.1105039 Oh dical NAL 9 [facility] 2022-11-12 2022-11-12 Telephone [facility] 1.2.700.457 [id number] Univers 00:00:00 00:00:00 Qiangjun [place] 350.1.13.10 ity of [place] 4.2.7.2.[place] [id number] [address] 2022-11-09 2022-11-09 Orders Doctor JOHANN 1.2.840.114 [id number] Univers 00:00:00 00:00:00 Only Unassigned, MIKE 350.1.13.10 ity of [place] [facility] 4.2.7.2.686 Babak as [id number] [address] 2022-11-08 2022-11-08 Outpatient R [facility] [id number] Univers 08:00:00 08:00:00 WAYNE ity of [facility] 2022-10-24 2022-10-24 [facility] 1.2.840.114 [id number] Univers 00:00:00 00:00:00 [place] 350.1.13.10 ity of [facility] 4.2.7.2.[place] [id number] [address] 2022-10-19 2022-10-19 [facility] 1.2.840.114 [id number] Univers 00:00:00 00:00:00 Rogerjun [place] 350.1.13.10 ity of [place] 4.2.7.2.[place] [id number] [address] 2022-10-04 2022-10-04 [facility] 1.2.026.413 3197 [id number] Univers 00:00:00 00:00:00 Qiamerjun [place] 350.1.13.10 ity of [place] 4.2.7.2.[place] [id number] [address] 2022-10-04 2022-10-04 [facility] 1.2.685.490 8893 [id number] Univers 00:00:00 00:00:00 Catrinamerzaheer ROSI 350.1.13.10 ity of [place] 4.2.7.2.[place] [id number] Oh dical NAL 059 [facility] 2022-10-04 2022-10-04 Orders Doctor JOHANN 1.2.840.114 [id number] Univers 00:00:00 00:00:00 Only Unassigned, MIKE 350.1.13.10 ity of [place] [facility] 4.2.7.2.686 Babak as [id number] [address] 2022-09-26 2022-09-27 Outpatient R [facility] [id number] Univers 10:00:00 13:19:48 [place] ity o f [facility] 2022-09-26 2022-09-26 Office [facility] 1.2.840.114 [id number] Univers 10:00:00 10:10:00 Visit [place] ARANDA 350.1.13.10 ity of [place] 4.2.7.2.[place] 088.9408489 Oh dical NAL 9 [facility] 2022-09-26 2022-09-26 Social Sciences Instructor Farnaz, Andre Lab Main [facility] 1.2.8 40.114 [id number] Univers 09:45:00 10:00:00 Visit Yolande Santacruz ROSI 350.1.13.10 ity of [place] 4.2.7.2.[place] [id number] Oh dical NAL 353 [facility] 2022-09-26 2022-09-26 Telephone [facility] 1.2.326.054 [id number] Univers 00:00:00 00:00:00 Rogerzaheer ROSI 350.1.13.10 ity of [place] 4.2.7.2.[place] 705.3089333 Oh dical NAL 059 [facility] 2022-08-29 2022-08-29 Telephone [facility] 1.2.999.036 [id number] [id number] Univers 00:00:00 00:00:00 Rogerzaheer ROSI 350.1.13.10 ity of [place] 4.2.7.2.[place] 586.4681526 Oh dical NAL 059 [facility] 2022-08-29 2022-08-29 [facility]phone [facility] 1.2.780.634 [id number] [id number] Univers 00:00:00 00:00:00 Catrinamerzaheer ROSI 350.1.13.10 ity of [facility] 4.2.7.2.[place] [id number] Oh dicwy NAL 059 [facility] 2022-08-28 2022-08-28 Outpatient R [facility] [id number] Univers 15:40:00 16:40:51 [place] scotty o f [facility] 2022-08-28 2022-08-28 Office [facility] 1.2.840.114 [id number] Univers 15:40:00 16:40:51 Visit [place] ARANDA 350.1.13.10 ity of [place] 4[place].7.2.[place] [id number] [facility] NAL [address] [place] [address] 2022-08-28 2022-08-28 Social Sciences Instructor Farnaz, Adc Lab Main [facility] 1.2.8 40.114 [id number] Univers 13:30:00 13:45:00 Visit [place] Dan 350.1.13.10 ity of [place] 4.2.7.2.[place] [id number] [facility] 353 [facility] 2022-08-28 2022-08-28 Office [facility] 1.2.840.114 [id number] Univers 13:00:00 13:27:01 Visit [place] ARANDA 350.1.13.10 ity of [facility] 4.2.7.2.[place] 153.5196048 Oh dical NAL 9 [facility] 2022-08-23 2022-08-23 Orders Doctor JOHANN 1.2.840.114 [id number] Univers 00:00:00 00:00:00 Only Unassigned, MIKE 350.1.13.10 ity of [place] [facility] 4.2.7.2.686 Babak as [id number] [address] 2022-08-22 2022-08-22 Telephone [facility] 1.2.792.764 [id number] [id number] Univers 00:00:00 00:00:00 [place] AR[place]DA 350.1.13.10 ity of [place] 4.2.7.2.[place] [id number] [facility] 059 [facility] 2022-08-01 2022-08-01 Outpatient R [facility] [id number] Univers 10:11:06 23:59:00 JOSEPH ity of [facility] 2022-08-01 2022-08-01 [facility] 1.2.840.114 [id number] Univers 10:11:06 23:59:00 Encounter Joseph Manzo ROSI 350.1.13.10 ity of [facility] 4.2.7.2.[place] [id number] [facility] [address] 2022-08-01 2022-08-01 Office [facility] 1.2.840.114 [id number] Univers 15:50:00 16:00:00 Visit [place] GRAYSONJAVIER 350.1.13.10 ity of [place] 4.2.7.2.[place] [id number] [facility] 059 [facility] 2022-08-01 2022-08-01 Social Sciences Instructor Farnaz, Adc Lab Main [facility] 1.2.8 40.114 [id number] Univers 11:00:00 11:15:00 Visit [place] Dan 350.1.13.10 ity of [place] 4.2.7.2.686 [place] [id number] [facility] 353 [facility] 2022-08-01 2022-08-01 Telephone [facility] 1.2.930.140 6164 [id number] Univers 00:00:00 00:00:00 Catrinamerzaheer ROSI 350.1.13.10 ity of [place] 4.2.7.2.[place] 219.3805107 [facility] 059 [facility] 2022-07-31 2022-07-31 Telephone [facility] 1.2.529.002 [id number] [id number] Univers 00:00:00 00:00:00 [place] ROSI 350.1.13.10 ity of [place] 4.2.7.2.686 Jose Elias REYES [id number] Oh dical NAL 059 [facility] 2022-07-10 2022-07-10 Office Sy, 1.2.840.0 [id number] Univers 13:00:00 14:24:58 Visit [place] 88220.1.1 ity of 3.104.2.7 [place] .3.188048 Medica l .8 [place] 2022-07-10 2022-07-10 Outpatient R [facility] [id number] Univers 13:00:00 13:00:00 [place] perez o f [facility] 2022-07-10 2022-07-10 Social Sciences Instructor [place] Dan 1.2.840.1 [id number] Univers 10:00:00 10:15:00 Visit Pob, [facility] Lab Main 47060.1.1 ity of 3.104.2.7 [place] .3.425215 Medica l .8 [place] 2022-07-10 2022-07-10 Orders Doctor 1.2.840.7 [id number] Univers 00:00:00 00:00:00 Only Unassigned, 43206.1.1 ity of [place] 3.104.2.7 [place] .3.361876 Medica l .8 [place] 2022-07-10 2022-07-10 Telephone Sy, 1.2.840.6 [id number] Univers 00:00:00 00:00:00 [place] 68860.1.1 ity of 3.104.2.7 [place] .3.988715 Medica l .8 [place] 2022-06-25 2022-06-25 Outpatient R [facility] [id number] Univers 15:40:00 16:09:43 [place] perez o f [facility] 2022-06-25 2022-06-25 Office Sy, 1.2.840.8 [id number] 4593 Univers 15:40:00 16:09:43 Visit [place] 04501.1.1 ity of 3.104.2.7 [place] .3.820540 Medica l .8 [place] 2022-06-25 2022-06-25 Social Sciences Instructor [place] Dan 1.2.840.1 [id number] [facility] 11:45:00 12:00:00 Visit Farnaz, Adc Lab Main 71975.1.1 ity of 3.104.2.7 [place] .3.454740 Medica l .8 [place] 2022-06-25 2022-06-25 Office Sy, 1.2.840.2 [id number] 6222 [facility] 11:20:00 11:20:00 Visit [place] 27636.1.1 ity of 3.104.2.7 [place] .3.558732 Medica l .8 [place] 2022-06-25 2022-06-25 Telephone Sy, 1.2.840.9 [id number] Univers 00:00:00 00:00:00 [place] 53745.1.1 ity of 3.104.2.7 [place] .3.062454 Medica l .8 [place] 2022-06-25 2022-06-25 Travel 1.2.840.1 1.2.645.607 3563 [id number] Univers 00:00:00 00:00:00 74308.1.1 350.1.13.10 ity of 3.104.2.7 4[place]7.3.698 [place] .3.678906 084.8 Medica l .8 [place] 2022-06-13 2022-06-13 Transition Isaak, 1.2.840.2 [id number] Univers 00:00:00 00:00:00 of Care Jeremy A 72921.1.1 it y of 3.104.2.7 [place] .3.799073 Medica l .8 [place] 2022-06-06 2022-06-12 Inpatient R MARIIA CARDONA [facility] [id number] Univers 17:19:00 12:24:00 MARIIA CARDONA ity of [facility] 2022-06-06 2022-06-12 Hospital Al Ko, 1.2.840.8 [id number] Univers 17:19:00 12:24:00 Encounter Mariia 83482.1.1 it y of 3.104.2.7 [place] .3.629910 Medica l .8 [place] 2022-06-06 2022-06-06 Social Sciences Instructor [place] Dan 1.2.840.1 [id number] Univers 10:15:00 10:30:00 Visit Pob, Adc Lab Main 72570.1.1 ity of [place], [place] 3.104.2.7 [place] .3.307376 Medica l .8 [place] 2022-06-06 2022-06-06 Telephone Sy, 1.2.840.0 [id number] Univers 00:00:00 00:00:00 [place] 36945.1.1 ity of 3.104.2.7 [place] .3.576560 Medica l .8 [place] 2022-06-06 2022-06-06 Travel 1.2.840.1 1.2.268.269 1076 [id number] Univers 00:00:00 00:00:00 92594.1.1 350.1.13.10 ity of 3.104.2.7 4[place]2.7.3.698 [place] .3.813397 084.8 Medica l .8 [place] 2022-06-05 2022-06-05 Telephone Sewani, 1.2.840.8 [id number] 100 [id number] Univers 00:00:00 00:00:00 [place] 50337.1.1 ity of 3.104.2.7 [place] .3.280729 Medica l .8 [place] 2022-05-29 2022-05-29 Telephone Sewani, 1.2.840.6 [id number] 100 [id number] Univers 00:00:00 00:00:00 [place] 68390.1.1 ity of 3.104.2.7 [place] .3.597349 Medica l .8 [place] 2022-05-18 2022-05-27 [facility] Sean Grahamus [facility] [id number] [facility] 08:42:00 16:40:00 Encounter Adhi, Vinayak Evans [facility], [facility] Meaghan Leyva 2022-05-18 2022-05-27 Hospital ER Sean Graham [facility] [id number] [facility] 08:42:00 16:40:00 Encounter Adhi, Vinayak Evans [facility], [facility], [facility], Benjamin [place], Meaghan Reilly 2022-05-18 2022-05-27 Inpatient ER [place], [facility] ICU 5 [id number] [facility] 08:42:00 16:40:00 MEAGHAN 2022-05-19 2022-05-[address] [facility] [id number] [facility] 00[facility]:00 [facility] 2022-05-19 2022-05-[address] [facility] [id number] [facility] 00:00:00 [facility] 2022-05-18 2022-05-[address] [facility] [id number] 00:00:00 00:00:00 Only [facility] 2022-05-18 2022-05-[address] [facility] [id number] 00:00[facility]00 00:00:00 [facility] 2022-05-18 2022-05-[address] [facility] [id number] 00:00:00 00:00:00 [facility] 2022-05-18 2022-05-[address] [facility] [id number] 00:00:00 00:00:00 [facility] 2022-05-10 2022-05-10 Outpatient Joan RABAGO [facility] [id number] Univers 11:40:00 12:05:03 WAYNE ity of [facility] 2022-05-10 2022-05-10 Office [place], 1.2.840.2 [id number] Univers 11:40:00 12:05:03 Visit [place] 45476.1.1 ity of 3.104.2.7 [place] .3.078781 Medica l .8 [place] 2022-05-10 2022-05-10 Travel 1.2.840.1 1.2.109.717 9328 63581 Univers 00:00:00 00:00:00 60454.1.1 350.1.13.10 ity of 3.104.2.7 4.2.7.3.698 [place] .3.554044 084.8 Medica l .8 [place] 2022-05-09 2022-05-09 Social Sciences Instructor [place] 1.2.840.1 [id number] Univers 10:30:00 10:45:00 Visit Pofredy, Adc Lab Main 17541.1.1 ity of 3.104.2.7 [place] .3.939208 Medica l .8 [place] 2022-05-09 2022-05-09 Outpatient R [facility] [id number] Univers 10:30:00 10:30:00 [place] ity o f [facility] 2022-05-09 2022-05-09 Orders Doctor 1.2.840.3 [id number] Univers 00:00:00 00:00:00 Only Unassigned, 03915.1.1 ity of [place] 3.104.2.7 [place] .3.604079 Medica l .8 [place] 2022-05-09 2022-05-09 Telephone Sy 1.2.840.2 [id number] Univers 00:00:00 00:00:00 [place] 74825.1.1 ity of 3.104.2.7 [place] .3.849720 Medica l .8 [place] 2022-04-12 2022-04-12 [facility] [id number] Univers 11:00:00 11:00:00 WAYNE ity of [facility] 2022-04-12 2022-04-12 Outpatient R HIMA, [facility] [id number] Univers 11:00:00 11:00:00 WAYNE ity of [facility] 2022-04-11 2022-04-11 Social Sciences Instructor [place] Dan 1.2.840.1 [id number] Univers 09:45:00 10:00:00 Visit Andre Osei Lab Main 19314.1.1 ity of 3.104.2.7 [place] .3.310086 Medica l .8 [place] 2022-04-11 2022-04-11 Outpatient R SY [facility] [id number] Univers 09:45:00 09:45:00 [place] perez o f [facility] 2022-04-11 2022-04-11 Orders Doctor 1.2.840.3 [id number] Univers 00:00:00 00:00:00 Only Unassigned, 22927.1.1 ity of [place] 3.104.2.7 [place] .3.680383 Medica l .8 [place] 2022-04-11 2022-04-11 Telephone Sy, 1.2.840.9 [id number] Univers 00:00:00 00:00:00 Qiajuan 64064.1.1 ity of 3.104.2.7 [place] .3.885461 Medica l .8 [place] 2022-03-30 2022-03-30 Refill Sy, 1.2.840.5 [id number] Univers 00:00:00 00:00:00 [place] 58911.1.1 ity of 3.104.2.7 [place] .3.329841 Medica l .8 [place] 2022-03-15 2022-03-15 Telephone [place], 1.2.840.6 [id number] Univers 00:00:00 00:00:00 Wayne 09649.1.1 ity of 3.104.2.7 [place] .3.232041 Medica l .8 [place] 2022-03-14 2022-03-14 Social Sciences Instructor [place] Dan 1.2.840.1 [id number] Univers 09:30:00 09:45:00 Visit Pob, Adc Lab Main 22280.1.1 ity of 3.104.2.7 [place] .3.008120 Medica l .8 [place] 2022-03-14 2022-03-14 Outpatient R [facility] [id number] Univers 09:30:00 09:30:00 [place] scotty o f [facility] 2022-03-14 2022-03-14 Orders Doctor 1.2.840.4 [id number] Univers 00:00:00 00:00:00 Only Unassigned, 42487.1.1 ity of [place] 3.104.2.7 [place] .3.486566 Medica l .8 [place] 2022-03-14 2022-03-14 Telephone Sy, 1.2.840.2 [id number] Univers 00:00:00 00:00:00 [place] 04026.1.1 ity of 3.104.2.7 [place] .3.855701 Medica l .8 [place] 2022-02-28 2022-02-28 Social Sciences Instructor 1, Adc Lab [facility] 1.2.840.114 [id number] Univers 13:30:00 13:45:00 Visit [place] Dan 350.1.13.10 ity of [facility] 4[place]2.7.2.[place] [id number] [facility] 353 [place] 2022-02-28 2022-02-28 Outpatient R [facility] [id number] Univers 13:00:00 13:20:24 [place] perez o f [facility] 2022-02-28 2022-02-28 [facility] 1.2.840.114 [id number] Univers 13:00:00 13:20:24 Visit Rogerzaheer ROSI 350.1.13.10 ity of [facility] 4.2.7.2.[address] [facility] [id number] [place] dical NAL 059 [facility] 2022-02-28 2022-02-28 Outpatient R [facility] [id number] Univers 13:00:00 13:00:00 [place] scottjake o abigail [facility] 2022-02-28 2022-02-28 Outpatient R SY, [facility] [id number] Univers 13:00:00 13:00:00 [place] scottjake o abigail [facility] 2022-02-28 2022-02-28 Outpatient R SY, [facility] [id number] Univers 13:00:00 13:00:00 [place] ana o abigail [facility] 2022-02-28 2022-02-28 Orders Doctor JOHANN 1.2.840.114 [id number] Univers 00:00:00 00:00:00 Only Unassigned, MIKE 350.1.13.10 ity of [place] [facility] 4.2.7.2.686 Babak as [id number] [address] 2022-02-28 2022-02-28 Telephone [facility] 1.2.139.670 [id number] Univers 00:00:00 00:00:00 [place] ARANDA 350.1.13.10 ity of [facility] 4.2.7.2.[place] [id number] Oh dical NAL 059 [facility] 2022-02-14 2022-02-14 Social Sciences Instructor Farnaz, Adc Lab Main [facility] 1.2.8 40.114 [id number] Univers 09:45:00 10:00:00 Visit [place] Dan ROSI 350.1.13.10 ity of [facility] 4.2.7.2.[place] [id number] Oh dical NAL 353 [facility] 2022-02-14 2022-02-14 Outpatient R SY, [facility] [id number] Univers 09:45:00 09:45:00 [place] perez o [facility] 2022-02-14 2022-02-14 Orders Doctor WILLS 1.2.840.114 [id number] Univers 00:00:00 00:00:00 Only Unassigned, MIKE 350.1.13.10 ity of [place] [facility] 4.2.7.2.686 Babak as [id number] [address] 2022-02-14 2022-02-14 Telephone [facility] 1.2.998.268 [id number] Univers 00:00:00 00:00:00 Qiangjun [place] 350.1.13.10 ity of [place].7.2.[place] [phone] Oh dickirk BURGESS 059 [facility] 2022-02-13 2022-02-13 Refill [facility] 1.2.840.114 [id number] Univers 00:00:00 00:00:00 Qiangzaheer [place] 350.1.13.10 ity of [place] 4.2.7.2.[place] [id number] Oh dickirk BURGESS 9 [facility] 2022-01-27 2022-01-27 [facility] 1.2.782.050 [id number] Univers 00:00:00 00:00:00 Qiajuan [place] 350.1.13.10 ity of [place] 4.2.7.2.[place] [id number] Oh dickirk NAL 059 [facility] 2022-01-25 2022-01-25 Social Sciences Instructor Farnaz, Adc Lab Main [facility] 1.2.8 40.114 [id number] Univers 08:45:00 09:00:00 Visit [place] Dan 350.1.13.10 ity of [place] 4.2.7.2.[place] [phone] Oh dical NAL 353 [facility] 2022-01-25 2022-01-25 Outpatient R [facility] [id number] Univers 08:45:00 08:45:00 QIANGJUN ity o f [facility] 2022-01-19 2022-01-19 Social Sciences Instructor Farnaz, Adc Lab Main [facility] 1.2.8 40.114 [id number] Univers 12:30:00 12:45:00 Visit [place] DanTON 350.1.13.10 ity of [place] 4.2.7.2.[place] [id number] Oh dical NAL 353 [facility] 2022-01-19 2022-01-19 Outpatient R [facility] [id number] Univers 12:30:00 12:30:00 [place] ity o f [facility] 2022-01-19 2022-01-19 [facility] 1.2.052.975 [id number] Univers 00:00:00 00:00:00 Catrinamerzaheer [place] 350.1.13.10 ity of [place] 4.2.7.2.[place] [id number] Oh dical NAL 9 [facility] 2022-01-17 2022-01-17 Social Sciences Instructor Farnaz, Adc Lab Main [facility] 1.2.8 40.114 [id number] Univers 08:45:00 09:00:00 Visit [place] Dan 350.1.13.10 ity of [place] 4.2.7.2.[place] [id number] Oh dical NAL [address] [place] [address] 2022-01-17 2022-01-17 Outpatient R [facility] [id number] Univers 08:45:00 08:45:00 [place] perez o f [facility] 2022-01-17 2022-01-17 [facility]phone [facility] 1.2.885.456 [id number] Univers 00:00:00 00:00:00 [place] ARANDA 350.1.13.10 ity of [place] 4.2.7.2.[place] [id number] Oh dical NAL [address] [place] [address] 2021-12-28 2021-12-28 Social Sciences Instructor Farnaz, Adc Lab Main [facility] 1.2.8 40.114 [id number] Univers 10:30:00 10:45:00 Visit Yolande Santacruz 350.1.13.10 ity of [place] 4.2.7.2.[place] [id number] Oh dical NAL [address] [place] [address] 2021-12-28 2021-12-28 [facility] [id number] Univers 10:30:00 10:30:[address] [facility] 2021-12-28 2021-12-28 Telephone YANY Dan 1.2.111.042 [id number] Univers 00:00:00 00:00:00 Rogerjun PEDIATRIC 350.1.13.10 [place] of [place]2.[place].2.[place] [phone] [facility] 059 [facility] 2021-12-15 2021-12-15 Telephone [facility] 1.2.540.931 [id number] Univers 00:00:00 00:00:00 Qiajuan [place] 350.1.13.10 ity of [place] 4.2.7.2.[place] [id number] Oh dic[address] 2021-12-15 2021-12-15 Telephone [facility] 1.2.842.440 [id number] Univers 00:00:00 00:00:00 [place] ARANDA 350.1.13.10 ity of [place] 4.2.7.2.[place] [phone] [place] [address] [facility] 2021-12-15 2021-12-15 [facility] 1.2.840.114 [id number] Univers 00:00:00 00:00:00 [place] ARANDA 350.1.13.10 ity of [place] 4.2.7.2.[place] [id number] [place] [address]49 [facility] 2021-12-14 2021-12-14 Social Sciences Instructor Farnaz, Andre Lab Main [facility] 1.2.8 40.114 [id number] Univers 12:30:00 12:45:00 Visit Sy [place] ARANDA 350.1.13.10 ity of [place] 4.2.7.2.[place] [id number] [facility] 353 [facility] 2021-12-14 2021-12-14 Outpatient R [facility] [id number] Univers 12:30:00 12:30:00 [place] perez o f [facility] 2021-12-14 2021-12-14 Orders Doctor WILLS 1.2.840.114 [id number] Univers 00:00:00 00:00:00 Only Unassigned, MIKE 350.1.13.10 ity of [place] [facility] 4.2.7.2.686 Babak as [phone] [facility] [address] 2021-12-04 2021-12-04 Social Sciences Instructor Andre Osei Lab Main [facility] 1.2.8 40.114 [id number] Univers 14:15:00 14:30:00 Visit [place] Dan 350.1.13.10 ity of [place] 4.2.7.2.[place] [id number] Oh dical NAL 353 [facility] 2021-12-04 2021-12-04 Outpatient R [facility] [id number] Univers 14:15:00 14:15:00 [place] tylerjake o f [facility] 2021-12-04 2021-12-04 Outpatient R [facility] [id number] Univers 14:15:00 14:15:00 CATRINAJUAN ana o f [facility] 2021-12-04 2021-12-04 Transition ALESIA Gamez 1.2.840.114 [id number] Univers 00:00:00 00:00:00 of Care Georgie SAMANIEGO 350.1.13.10 it y of [place] 4.2.7.2.[place] [id number] [facility] [address] 2021-12-04 2021-12-04 [facility]phone [facility] 1.2.122.019 [id number] Univers 00:00:00 00:00:00 [place] ARANDA 350.1.13.10 ity of [place] 4.2.7.2.[place] [phone] Oh dical NAL 059 [facility] 2021-11-23 2021-12-01 Inpatient R RE[facility] 10 [id number] Univers 15:31:00 14:11:00 REBECA HOLCOMB ity of [facility] 2021-11-23 2021-12-01 [facility] SHAYAN Holcomb 1.2.794.967 [id number] Univers 15:31:00 14:11:00 Encounter Rebeca MCKEON 350.1.13.10 ity of [facility]OSPITAL 4.2.7.2.686 Babak as [id number] [facility] [address] 2021-12-01 2021-12-01 [facility]phone [facility] 1.2.901.391 [id number] 0453 Univers 00:00:00 00:00:00 Wayne ROSI 350.1.13.10 i ty of [place] 4.2.7.2.[place] [id number] Oh dical NAL 059 [facility] 2021-11-23 2021-11-23 Orders Doctor JOHANN 1.2.840.114 [id number] Univers 00:00:00 00:00:00 Only Unassigned, MIKE 350.1.13.10 ity of [place] [facility] 4.2.7.2.686 Babak as [phone] [facility] [address] 2021-11-22 2021-11-22 Social Sciences Instructor Farnaz, Adc Lab Main [facility] 1.2.8 40.114 [id number] Univers 07:45:00 08:00:00 Visit [place] Dan 350.1.13.10 ity of [place] 4.2.7.2.[place] [phone] Oh dical NAL 353 [facility] 2021-11-22 2021-11-22 Outpatient R SY, [facility] [id number] Univers 07:45:00 07:45:00 ROGERZAHEER tylery o f [facility] 2021-11-22 2021-11-22 Outpatient R [facility] [id number] Univers 07:45:00 07:45:00 [place] scotty o [facility] 2021-11-20 2021-11-20 [facility]phone [facility] 1.2.506.939 [id number] Univers 00:00:00 00:00:00 Catrinamerzaheer ARANDA 350.1.13.10 ity of [place] 4.2.7.2.[place] [id number] Oh dical NAL 059 [facility] 2021-11-10 2021-11-10 Social Sciences Instructor Farnaz, Adc Lab Main [facility] 1.2.8 40.114 [id number] Univers 16:45:00 17:00:00 Visit [place] Dan 350.1.13.10 ity of [place] 4.2.7.2.[place] [id number] [facility] [address] [facility] 2021-11-10 2021-11-10 Outpatient R SY, [facility] [id number] Univers 16:45:00 16:45:00 [place] perez o [facility] 2021-11-10 2021-11-10 Outpatient R SY, [facility] [id number] Univers 16:45:00 16:45:00 [place] perez o [facility] 2021-11-10 2021-11-10 [facility]phone [facility] 1.2.032.542 [id number] Univers 00:00:00 00:00:00 [place] ARANDA 350.1.13.10 ity of [place] 4.2.7.2.[place] [phone] [facility] 059 [facility] 2021-11-07 2021-11-07 Telephone [facility] 1.2.840.114 [id number] Univers 00:00:00 00:00:00 h, Tar HEALTH 350.1.13.10 i ty of [place]2.7.2.[place] [id number] [place] [address] OFFICE BUILDING 2021-11-06 2021-11-06 Social Sciences Instructor Farnaz, Andre Lab Main [facility] 1.2.8 40.114 [id number] Univers 13:15:00 13:30:00 Visit [place] Dan 350.1.13.10 ity of [place] 4.2.7.2.[place] [id number] [facility] 353 [facility] 2021-11-06 2021-11-06 Outpatient R SY, [facility] [id number] Univers 13:15:00 13:15:00 [place] scotty o [facility] 2021-11-06 2021-11-06 Outpatient R SY, [facility] [id number] Univers 13:15:00 13:15:00 CATRINAJUAN scotty o [facility] 2021-11-06 2021-11-06 Telephone Sy [facility] 1.2.831.286 [id number] Univers 00:00:00 00:00:00 [place] ARANDA 350.1.13.10 ity of [place] 4.2.7.2.[place] [id number] Oh dical NAL 059 [facility] 2021-11-06 2021-11-06 [facility]phone [facility] 1.2.335.527 [id number] Univers 00:00:00 00:00:00 Wayne HEALTH 350.1.13.10 it y of [place]2.7.2.[place] [id number] [address] OFFICE BUILDING 2021-11-03 2021-11-03 Outpatient R HIMA [facility] [id number] Univers 15:00:00 15:40:[address] [facility] 2021-11-03 2021-11-03 [facility] [id number] Univers 15:00:00 15:40:[address] [facility] 2021-11-03 2021-11-03 [facility] 1.2.840.114 [id number] Univers 15:00:00 15:20:00 Visit [facility] ROSI 350.1.13.10 i ty of [facility] 4.2.7.2.[place] [id number] Oh dicwy NAL [address] [place] [address] 2021-11-03 2021-11-03 [facility] [id number] Univers 15:00:00 15:00:[address] [facility] 2021-11-03 2021-11-03 Social Sciences Instructor Farnaz, Andre Lab Main [facility] 1.2.8 40.114 [id number] Univers 14:30:00 14:45:00 Visit [place] Dan 350.1.13.10 ity of [place] 4.2.7.2.[place] [id number] Oh dical NAL 353 [facility] 2021-11-03 2021-11-03 Outpatient R HIMA [facility] [id number] Univers 11:00:00 11:00:[address] [facility] 2021-11-03 2021-11-03 Outpatient R HIMA, [facility] [id number] Univers 11:00:00 11:00:[address] [facility] 2021-11-03 2021-11-03 Outpatient R HIMA [facility] [id number] Univers 11:00:00 11:00:[address] [facility] 2021-11-03 2021-11-03 [facility]phone [facility] 1.2.533.546 [id number] Univers 00:00:00 00:00:00 [place] GRAYSONTON 350.1.13.10 ity of [place] 4.2.7.2.[place] [id number] Oh dical NAL 059 [facility] 2021-10-25 2021-10-25 [facility] 1.2.840.114 [id number] Univers 00:00:00 00:00:00 [place] G[place]YSONTON 350.1.13.10 ity of [place] 4.2.7.2.[place] [id number] Oh dical NAL 059 [facility] 2021-10-23 2021-10-23 Social Sciences Instructor Farnaz, Andre Lab Main [facility] 1.2.8 40.114 [id number] Univers 10:15:00 10:30:00 Visit Sy [place] ARANDA 350.1.13.10 ity of [place] 4.2.7.2.[place] [id number] Oh dical NAL 353 [facility] 2021-10-23 2021-10-23 Outpatient R SY, [facility] [id number] Univers 10:15:00 10:15:00 [place] perez o f [facility] 2021-10-23 2021-10-23 Outpatient R SY, [facility] [id number] Univers 10:15:00 10:15:00 [place] perez o f [facility] 2021-10-23 2021-10-23 Orders Doctor WILLS 1..840.114 [id number] Univers 00:00:00 00:00:00 Only Unassigned, MIKE 350.1.13.10 [facility] 4.2.7.2.686 Babak as [id number] [address] 2021-10-23 2021-10-23 Refill [facility] 1.2.840.114 [id number] [facility] 00:00:00 00:00:00 Qiajuan [place] 350.1.13.10 ity of [facility] 4.2.7.2.[place] [id number] Oh dical NAL 059 [facility] 2021-10-23 2021-10-23 Telephone [facility] 1.2.210.140 [id number] [facility] 00:00:00 00:00:00 Qiamerzaheer [place] 350.1.13.10 ity of [facility] 4.2.7.2.[place] [id number] Oh dical NAL 9 [facility] 2021-10-18 2021-10-18 Social Sciences Instructor Farnaz, Andre Lab Main [facility] 1.2.8 40.114 [id number] Univers 09:30:00 09:45:00 Visit Sy Rogerzaheer ROSI 350.1.13.10 ity of [facility] 4.2.7.2.[place] [id number] Oh dical NAL 353 [facility] 2021-10-18 2021-10-18 Outpatient R [facility] [id number] Univers 09:30:00 09:30:00 [place] scotty o f [facility] 2021-10-18 2021-10-18 Outpatient R [facility] [id number] Univers 09:30:00 09:30:00 [place] ity o f [facility] 2021-10-18 2021-10-18 Telephone [facility] 1.2.294.128 [id number] [facility] 00:00:00 00:00:00 Catrinamerzaheer [place] 350.1.13.10 ity of [facility] 4.2.7.2.[place] [id number] Oh dical NAL 059 [facility] 2021-10-13 2021-10-13 Social Sciences Instructor Farnaz, Adc Lab Main [facility] 1.2.8 40.114 [id number] Univers 10:45:00 11:00:00 Visit [place] DanTON 350.1.13.10 ity of [place] 4.2.7.2.[place] [id number] Oh dical NAL 353 [facility] 2021-10-13 2021-10-13 Outpatient R SY, [facility] [id number] Univers 10:45:00 10:45:00 QIAJUNA ity o [facility] 2021-10-13 2021-10-13 Outpatient R SY, [facility] [id number] Univers 10:45:00 10:45:00 QIANGZAHEER ity o [facility] 2021-10-13 2021-10-13 Telephone [facility] 1.2.263.759 [id number] Univers 00:00:00 00:00:00 [place] 350.1.13.10 ity of [place] 4.2.7.2.[place] [id number] Oh dical NAL 059 [facility] 2021-09-27 2021-09-27 Social Sciences Instructor Farnaz, Adc Lab Main [facility] 1.2.8 40.114 [id number] Univers 10:15:00 10:30:00 Visit [place] DanTON 350.1.13.10 ity of [place] 4.2.7.2.[place] [id number] Oh dical NAL 353 [facility] 2021-09-27 2021-09-27 Outpatient R SY, [facility] [id number] Univers 10:15:00 10:15:00 [place] ity o [facility] 2021-09-27 2021-09-27 Outpatient R SY, [facility] [id number] Univers 10:15:00 10:15:00 QIANGZAHEER ity o [facility] 2021-09-27 2021-09-27 Telephone [facility] 1.2.771.639 [id number] Univers 00:00:00 00:00:00 [place] 350.1.13.10 ity of [place] 4.2.7.2.[place] [id number] Oh dical NAL 059 [facility] 2021-09-27 2021-09-27 Telephone [facility] 1.2.413.809 [id number] Univers 00:00:00 00:00:00 Qiajuan [place] 350.1.13.10 ity of [place] 4.2.7.2.[place] [id number] Oh dical NAL 9 [facility] 2021-09-21 2021-09-21 Refill [facility] 1.2.840.114 [id number] Univers 00:00:00 00:00:00 Qiamerzaheer [place] 350.1.13.10 ity of [place] 4.2.7.2.[place] [id number] Oh dical NAL 059 [facility] 2021-09-01 2021-09-01 [facility] 1.2.295.579 [id number] Univers 00:00:00 00:00:00 Catrinamerzaheer [place] 350.1.13.10 ity of [place] 4.2.7.2.[place] [id number] Oh dical NAL 059 [facility] 2021-08-30 2021-08-30 Social Sciences Instructor Farnaz, Adc Lab Main [facility] 1.2.8 40.114 [id number] Univers 09:00:00 09:15:00 Visit Sy [place] ARANDA 350.1.13.10 ity of [place] 4.2.7.2.[place] [id number] Oh dical NAL 353 [facility] 2021-08-30 2021-08-30 Outpatient R [facility] [id number] Univers 09:00:00 09:00:00 [place] perez o f [facility] 2021-08-30 2021-08-30 Outpatient R SY, [facility] [id number] Univers 09:00:00 09:00:00 [place] perez o f [facility] 2021-08-30 2021-08-30 Orders Doctor WILLS 1.2.840.114 [id number] Univers 00:00:00 00:00:00 Only Unassigned, MIKE 350.1.13.10 [facility] 4.2.7.2.686 Babak as [id number] [address] 2021-08-30 2021-08-30 Telephone Sy, [facility] 1.2.707.030 [id number] Univers 00:00:00 00:00:00 [place] ARANDA 350.1.13.10 ity of [facility] 4.2.7.2.[place] [id number] Oh dical NAL 059 [facility] 2021-08-28 2021-08-28 Office [facility] 1.2.840.114 [id number] Univers 10:40:00 10:49:42 Visit [place] ARANDA 350.1.13.10 ity [facility] 4.2.7.2.[place] [id number] Oh dical NAL 059 [facility] 2021-08-28 2021-08-28 Outpatient R SY, [facility] [id number] Univers 10:40:00 10:49:42 [place] perez o [facility] 2021-08-28 2021-08-28 Outpatient R SY, [facility] [id number] Univers 10:40:00 10:40:00 [place] perez o [facility] 2021-08-28 2021-08-28 Outpatient R SY, [facility] [id number] Univers 10:40:00 10:40:00 [place] perez o [facility] 2021-08-16 2021-08-16 Social Sciences Instructor Farnaz, Adc Lab Main [facility] 1.2.8 40.114 [id number] Univers 12:15:00 12:30:00 Visit [place] Dan 350.1.13.10 ity of [facility] 4.2.7.2.[place] [id number] Oh dical NAL 353 [facility] 2021-08-16 2021-08-16 Outpatient R SY, [facility] [id number] Univers 12:15:00 12:15:00 [place] perez o [facility] 2021-08-16 2021-08-16 Outpatient R SY, [facility] [id number] Univers 12:15:00 12:15:00 [place] scottjake o abigail [facility] 2021-08-16 2021-08-16 Orders Doctor JOHANN 1.2.840.114 [id number] Univers 00:00:00 00:00:00 Only Unassigned, MIKE 350.1.13.10 ity of [place] [facility] 4.2.7.2.686 Babak as [id number] [address] 2021-08-16 2021-08-16 Telephone [facility] 1.2.415.718 [id number] Univers 00:00:00 00:00:00 [place] GRAYSONJAVIER 350.1.13.10 ity of [facility] 4.2.7.2.[place] [id number] Oh dical NAL 059 [facility] 2021-08-02 2021-08-02 Social Sciences Instructor Farnaz, Adc Lab Main [facility] 1.2.8 40.114 [id number] Univers 09:00:00 09:15:00 Visit [place] Dan 350.1.13.10 ity of [place] 4[place].7.2.[place] [id number] Oh dical NAL 353 [facility] 2021-08-02 2021-08-02 Outpatient R [facility] [id number] Univers 09:00:00 09:00:00 [place] jimenes [facility] 2021-08-02 2021-08-02 Outpatient R SY, [facility] [id number] Univers 09:00:00 09:00:00 [place] perez o [facility] 2021-08-02 2021-08-02 Orders Doctor JOHANN 1.2.840.114 [id number] Univers 00:00:00 00:00:00 Only Unassigned, MIKE 350.1.13.10 ity of [place] [facility] 4.2.7.2.686 Babak as [id number] [address] 2021-08-02 2021-08-02 Telephone [facility] 1.2.288.300 [id number] Univers 00:00:00 00:00:00 Qiamerjun [place] 350.1.13.10 ity of [place] 4.2.[place].2.[place] [id number] Oh dical NAL 059 [facility] 2021-07-10 2021-07-10 Refill [facility] 1.2.840.114 [id number] Univers 00:00:00 00:00:00 Qiangjun [place] 350.1.13.10 ity of [place] 4.2.[place].2.[place] [id number] Oh dical NAL [address] [place] [address] 2021-07-05 2021-07-05 Social Sciences Instructor Farnaz, Adc Lab Main [facility] 1.2.8 40.114 [id number] Univers 09:30:00 09:45:00 Visit Sy Rogerzaheer [place] 350.1.13.10 ity of [place] 4.2.7.2.[place] [id number] Oh dical NAL [address] [facility] 2021-07-05 2021-07-05 Outpatient R [facility] [id number] Univers 09:30:00 09:30:00 QIAMERZAHEER ity o [facility] 2021-07-05 2021-07-05 Outpatient R [facility] [id number] Univers 09:30:00 09:30:00 ROGERJUN ity o f [facility] 2021-07-05 2021-07-05 Telephone [facility] [id number] Univers 00:00:00 00:00:00 [place] 350.1.13.10 [place] of [place] 4[place]2.7.2.[place] [id number] Oh dical NAL [address] [place] [address] 2021-06-15 2021-06-15 Social Sciences Instructor Farnaz, Adc Lab Main [facility] 1.2.8 40.114 [id number] Univers 09:45:00 10:00:00 Visit [place] Dan [place] 350.1.13.10 it[place] of [place] 4.2.7.2.[place] [id number] Oh dical NAL [address] [facility] 2021-06-15 2021-06-15 Outpatient R SY [facility] [id number] Univers 09:45:00 09:23:22 [place] ity o f [facility] 2021-06-15 2021-06-15 Outpatient R SY, [facility] [id number] Univers 09:45:00 09:23:22 [place] scotty o f [facility] 2021-06-15 2021-06-15 Orders Doctor JOHANN [id number] Univers 00:00:00 00:00:00 Only Unassigned, MIKE 350.1.13.10 ity of [place] [facility] 4.2.7.2.686 [place] as [phone] [address] 2021-06-15 2021-06-15 Telephone YANY Dan [id number] Univers 00:00:00 00:00:00 [place] PEDIATRIC 350.1.13.10 [place]2.[place] [id number] [facility] PRIMARY 059 [facility] 2021-05-31 2021-05-31 Social Sciences Instructor Farnaz, Andre Lab Main [facility] 1.2.8 40.114 [id number] Univers 10:45:00 11:00:00 Visit Sy [place] ARANDA 350.1.13.10 [place] 4.2.7.2.[place] [id number] Oh dical NAL [address] [facility] 2021-05-31 2021-05-31 [facility] 1.2.840.114 [id number] Univers 10:00:00 10:33:12 Visit [place] ARANDA 350.1.13.10 it[place] of [place] 4.2.7.2.[place] [phone] Oh dical NAL 0[address] [facility] 2021-05-31 2021-05-31 Outpatient R SY [facility] [id number] Univers 10:00:00 10:33:12 [place] ity o f [facility] 2021-05-31 2021-05-31 Outpatient R SY, [facility] [id number] Univers 10:00:00 10:00:00 [place] perez o f [facility] 2021-05-31 2021-05-31 Telephone Sy, [facility] 1.2.304.579 [id number] Univers 00:00:00 00:00:00 Rogerzaheer ROSI 350.1.13.10 ity of [facility] [place] [phone] Oh dical NAL 059 [facility] 2021-05-26 2021-05-26 Emergency X JAKE, K [facility] ERT [id number] Univers 17:30:00 20:34:00 ity of [facility] 2021-05-26 2021-05-26 Emergency Jake, Ricky [facility] 1.2.840.114 [id number] Univers 17:30:00 20:34:00 Myah ARANDA 350.1.13.10 i ty of [facility] 4.2.7.2.[place] [id number] [facility] 084 [place] 2021-05-26 2021-05-26 Outpatient R SY, [facility] [id number] Univers 10:20:00 10:20:00 [place] perez o [facility] 2021-05-26 2021-05-26 Outpatient R SY, [facility] [id number] Univers 10:20:00 10:20:00 [place] perez o f [facility] 2021-05-10 2021-05-10 Social Sciences Instructor Farnaz, Adc Lab Main [facility] 1.2.8 40.114 [id number] Univers 08:15:00 08:30:00 Visit [place] DanJAVIER 350.1.13.10 ity of [facility] 4.2.7.2.[place] [id number] Oh dical NAL 353 [facility] 2021-05-10 2021-05-10 Outpatient R SY, [facility] [id number] Univers 08:15:00 08:15:00 QIAJUAN ity o f [facility] 2021-05-10 2021-05-10 Outpatient R SY, [facility] [id number] Univers 08:15:00 08:15:00 QIANGJUN ity o f [facility] 2021-05-10 2021-05-10 [facility] 1.2.977.730 [id number] Univers 00:00:00 00:00:00 Qiangjun [place] 350.1.13.10 ity of [place] 4.2.7.2.[place] [id number] [address] 2021-05-10 2021-05-10 [facility] 1.2.012.144 [id number] Univers 00:00:00 00:00:00 Qiangjun [place] 350.1.13.10 ity of [facility] 4.2.7.2.[place] [id number] [address] 2021-05-09 2021-05-09 [facility] 1.2.840.114 [id number] Univers 00:00:00 00:00:00 Qiamerzaheer [place] 350.1.13.10 ity of [place] 4.2.7.2.[place] [phone] [address] 2021-05-04 2021-05-04 [facility] 1.2.840.114 [id number] Univers 00:00:00 00:00:00 Qiamerjun [place] 350.1.13.10 ity of [place] 4.2.7.2.[place] [id number] [address] 2021-04-28 2021-04-28 Outpatient R HIMA [facility] [id number] Univers 08:40:00 09:19:00 WAYNE ity of [facility] 2021-04-28 2021-04-28 Office Hima [facility] 1.2.840.114 [id number] Univers 08:40:00 09:19:00 Visit Wayne ROSI 350.1.13.10 i ty of [place] 4.2.7.2.[place] [id number] [address] 2021-04-28 2021-04-28 Outpatient R HIMA, [facility] [id number] Univers 08:40:00 09:19:[address] [facility] 2021-04-28 2021-04-28 Social Sciences Instructor Farnaz, Adc Lab Main [facility] 1.2.8 40.114 [id number] Univers 08:00:00 08:15:00 Visit [place] Dan 350.1.13.10 ity of [place] 4.2.7.2.[place] [id number] Oh dical NAL 353 [facility] 2021-04-27 2021-04-27 Social Sciences Instructor Farnaz, Adc Lab Main [facility] 1.2.8 40.114 [id number] Univers 10:45:00 11:00:00 Visit [place] Dan 350.1.13.10 ity of [place] 4.2.7.2.[place] [phone] Oh dical NAL [address] [place] [address] 2021-04-27 2021-04-27 Outpatient R SY, [facility] [id number] Univers 10:45:00 10:45:00 [place] scotty o f [facility] 2021-04-27 2021-04-27 Outpatient R SY, [facility] [id number] Univers 10:45:00 10:45:00 [place] scotty o f [facility] 2021-04-27 2021-04-27 Telephone YANY Dan 1.2.360.065 [id number] Univers 00:00:00 00:00:00 [place] PEDIATRIC 350.1.13.10 [place] of [place].2.7.2.[place] [phone] [place] [address] [facility] 2021-04-25 2021-04-25 Outpatient R HIMA [facility] [id number] Univers 10:20:00 10:20:[address] [facility] 2021-04-25 2021-04-25 Outpatient R HIMA [facility] [id number] Univers 10:20:00 10:20:[address] [facility] 2021-04-12 2021-04-12 Social Sciences Instructor Farnaz, Adc Lab Main [facility] 1.2.8 40.114 [id number] Univers 09:30:00 09:45:00 Visit Catrina Danmerzaheer ROSI 350.1.13.10 ity of [facility] 4.2.7.2.[place] [id number] Oh dical NAL 353 [facility] 2021-04-12 2021-04-12 Outpatient R [facility] [id number] Univers 09:30:00 09:30:00 [place] perez o [facility] 2021-04-12 2021-04-12 Outpatient R [facility] [id number] Univers 09:30:00 09:30:00 [place] perez o [facility] 2021-04-12 2021-04-12 Orders Doctor JOHANN 1.2.840.114 [id number] Univers 00:00:00 00:00:00 Only Unassigned, MIKE 350.1.13.10 ity of [place] [facility] 4.2.7.2.686 Babak as [phone] [address] 2021-04-12 2021-04-12 Telephone [facility] 1.2.840.901 [id number] Univers 00:00:00 00:00:00 [place] ARANDA 350.1.13.10 ity of [facility] 4.2.7.2.[place] [id number] Oh dical NAL 059 [facility] 2021-03-29 2021-03-29 Outpatient R [facility] [id number] Univers 11:20:00 11:20:58 [place] perez o [facility] 2021-03-29 2021-03-29 Office [facility] 1.2.840.114 [id number] Univers 11:20:00 11:20:58 Visit Rogerzaheer ROSI 350.1.13.10 ity of [place] 4.2.7.2.[place] [id number] Oh dical NAL 059 [facility] 2021-03-28 2021-03-28 Social Sciences Instructor Farnaz, Adc Lab Main [facility] 1.2.8 40.114 [id number] Univers 12:13:20 12:28:20 Visit [place] Dan 350.1.13.10 ity of [facility] 4.2.7.2.[place] [phone] Oh dical NAL 353 [facility] 2021-03-28 2021-03-28 Outpatient R [facility] [id number] Univers 12:15:00 12:15:00 [place] ity o [facility] 2021-03-28 2021-03-28 Outpatient R [facility] [id number] Univers 12:15:00 12:15:00 [place] scotty o [facility] 2021-03-28 2021-03-28 Orders Doctor JOHANN 1.2.840.114 [id number] Univers 00:00:00 00:00:00 Only Unassigned, MIKE 350.1.13.10 ity of [place] [facility] 4.2.7.2.686 Babak as [phone] [address] 2021-03-28 2021-03-28 Telephone [facility] 1.2.549.002 [id number] Univers 00:00:00 00:00:00 [place] ARANDA 350.1.13.10 ity of [facility] 4.2.7.2.[place] [phone] Oh dical NAL 059 [facility] 2021-03-28 2021-03-28 Refill [facility] 1.2.840.114 [id number] Univers 00:00:00 00:00:00 [place] ARANDA 350.1.13.10 ity of [facility] 4.2.7.2.[place] [id number] Oh dical NAL 059 [facility] 2021-03-20 2021-03-20 Outpatient R [facility] [id number] Univers 13:45:00 13:45:00 [place] ity o [facility] 2021-03-20 2021-03-20 Outpatient R [facility] [id number] Univers 13:45:00 13:45:00 [place] ity o [facility] 2021-03-20 2021-03-20 Social Sciences Instructor Farnaz, Adc Lab Main [facility] 1.2.8 40.114 [id number] Univers 11:58:29 12:13:29 Visit [place] Dan 350.1.13.10 ity of [facility] 4.2.7.2.[place] [id number] Oh dical NAL 353 [facility] 2021-03-20 2021-03-20 Telephone [facility] 1.2.631.579 [id number] Univers 00:00:00 00:00:00 [place] ARANDA 350.1.13.10 ity of [facility] 4.2.7.2.[place] [phone] Oh dicwy NAL 059 [facility] 2021-03-15 2021-03-15 [facility] [id number] Univers 09:15:00 09:15:[address] [facility] 2021-03-15 2021-03-15 Outpatient Joan VILLA [facility] [id number] Univers 09:15:00 09:15:[address] [facility] 2021-03-15 2021-03-15 Social Sciences Instructor Farnaz, Adc Lab Main [facility] 1.2.8 40.114 [id number] Univers 08:14:37 08:29:37 Visit Jose [place] 350.1.13. 10 ity of [place] 4.2.7.2.[place] [phone] Oh dical [address] 2021-03-15 2021-03-15 Orders Doctor JOHANN 1.2.840.114 [id number] Univers 00:00:00 00:00:00 Only Unassigned, MIKE 350.1.13.10 ity of [place] [facility] 4.2.7.2.686 Babak as [phone] [address] 2021-03-15 2021-03-15 Telephone [facility] 1.2.358.907 [id number] Univers 00:00:00 00:00:00 [place] ARANDA 350.1.13.10 ity of [facility] 4.2.7.2.[place] [id number] Oh dical NAL [address] [facility] 2021-03-07 2021-03-07 Transition ALESIA Gamez 1.2.840.114 [id number] Univers 00:00:00 00:00:00 of Thao SAMANIEGO 350.1.13.10 it y of [place]2.7.2.[place] [id number] [facility] [address] 2021-03-01 2021-03-06 Inpatient X FABIOLA [facility] BERENICE [id number] Univers 11:31:00 15:17:[address] [facility] 2021-03-01 2021-03-06 [facility] Jamie Deng [facility] 1.2.840.1 14 [id number] Univers 11:31:00 15:17:00 Encounter MattbobbiCaleb maciel 350.1.13.10 ity [facility] 4.2.7.2.[place] [id number] [facility] [address] 2021-03-01 2021-03-01 [facility] [id number] Univers 11:31:00 11:31:[address] [facility] 2021-02-27 2021-02-27 Outpatient R SY, [facility] [id number] Univers 11:20:00 11:44:55 ROGERZAHEER ana o [facility] 2021-02-27 2021-02-27 Outpatient R SY, [facility] [id number] Univers 11:20:00 11:44:55 [place] scotty o [facility] 2021-02-27 2021-02-27 Outpatient R SY, [facility] [id number] Univers 11:20:00 11:44:55 [place] scotty o [facility] 2021-02-27 2021-02-27 Outpatient R SY, [facility] [id number] Univers 11:20:00 11:44:55 [place] perez o [facility] 2021-02-27 2021-02-27 [facility] 1.2.840.114 [id number] Univers 10:54:32 11:44:55 Visit [place] ARANDA 350.1.13.10 ity of [facility] 4.2.7.2.[place] [id number] Oh dical NAL 059 [facility] 2021-02-27 2021-02-27 Outpatient R SY, [facility] [id number] Univers 10:30:00 10:30:00 [place] ity o f [facility] 2021-02-27 2021-02-27 Outpatient R SY, [facility] [id number] Univers 10:30:00 10:30:00 [place] scotty o [facility] 2021-02-27 2021-02-27 Social Sciences Instructor Farnaz, Andre Lab Main [facility] 1.2.8 40.114 [id number] Univers 09:52:58 10:07:58 Visit [place] Dan 350.1.13.10 ity of [place].2.[place] [id number] [facility] 2021-02-27 2021-02-27 Orders Doctor JOHANN 1.2.840.114 [id number] Univers 00:00:00 00:00:00 Only Unassigned, MIKE 350.1.13.10 ity of [place] [facility] 4.2.7.2.686 Babak as [phone] [address] 2021-02-27 2021-02-27 Telephone [facility] 1.2.192.034 [id number] Univers 00:00:00 00:00:00 [place] ARANDA 350.1.13.10 ity of [facility] 4.2.7.2.[place] [id number] Oh dical NAL 059 [facility] 2021-02-24 2021-02-24 Outpatient R SY, [facility] [id number] Univers 10:45:00 10:45:00 CATRINAMERZAHEER ity o [facility] 2021-02-24 2021-02-24 Outpatient R SY, [facility] [id number] Univers 10:45:00 10:45:00 [place] ity o [facility] 2021-02-24 2021-02-24 Social Sciences Instructor Farnaz, Adc Lab Main [facility] 1.2.8 40.114 [id number] Univers 09:17:46 09:32:46 Visit [place] Dan 350.1.13.10 ity of [place] 4.2.7.2.[place] [id number] Oh dical NAL 353 [facility] 2021-02-24 2021-02-24 Telephone [facility] 1.2.424.670 [id number] Univers 00:00:00 00:00:00 Qiajuan [place] 350.1.13.10 ity of [place] 4.2.7.2.[place] [id number] Oh dical NAL 059 [facility] 2021-02-24 2021-02-24 Telephone [facility] 1.2.041.643 [id number] Univers 00:00:00 00:00:00 [place] 350.1.13.10 ity of [place] 4.2.7.2.[place] [id number] Oh dical NAL 059 [facility] 2021-02-24 2021-02-24 Telephone [facility] 1.2.357.080 [id number] Univers 00:00:00 00:00:00 [place] 350.1.13.10 ity of [place] 4.2.7.2.[place] [phone] Oh dical NAL 059 [facility] 2021-02-15 2021-02-15 Social Sciences Instructor Farnaz, Adc Lab Main [facility] 1.2.8 40.114 [id number] Univers 09:47:39 10:02:39 Visit [place] Dan 350.1.13.10 ity of [place] 4.2.7.2.[place] [id number] Oh dical NAL 353 [facility] 2021-02-15 2021-02-15 Outpatient R SY [facility] [id number] [facility] 09:45:00 09:45:00 [place] ity o f [facility] 2021-02-15 2021-02-15 Outpatient R SY [facility] [id number] Univers 09:45:00 09:45:00 [place] ity o f [facility] 2021-02-15 2021-02-15 Orders Doctor JOHANN 1.2.840.114 [id number] Univers 00:00:00 00:00:00 Only Unassigned, MIKE 350.1.13.10 ity of [place] [facility] 4.2.7.2.686 Babak as [phone] [facility] [address] 2021-02-15 2021-02-15 [facility] 1.2.224.348 [id number] Univers 00:00:00 00:00:00 [place] ARANDA 350.1.13.10 ity of [facility] 4.2.7.2.[place] [id number] Oh dical NAL [address] [facility] 2021-02-10 2021-02-10 Transition ALESIA Gamez 1.2.840.114 [id number] Univers 00:00:00 00:00:00 of Care Georgie MARIAY 350.1.13.10 it y of [place] 4[place]2.7.2.[place] [id number] [facility] [address] 2021-02-04 2021-02-09 Inpatient X MIGUEL [facility] [id number] Univers 20:57:00 13:26:00 JENNIFER ity of [facility] 2021-02-04 2021-02-09 [facility] Jamie Deng [facility] .2.840.1 14 [id number] Univers 20:57:00 13:26:00 Encounter Rao Childs 350.1.13.10 ity of [place] 4.2.7.2.686 [facility] [phone] [facility] [address] 2021-01-02 2021-01-02 Social Sciences Instructor Farnaz, Andre Lab Main [facility] 1.2.8 40.114 [id number] Univers 11:35:12 11:50:12 Visit [place] Dan 350.1.13.10 ity of [place].2.[place] [phone] Oh dical nal [address] 2021-01-02 2021-01-02 Outpatient R [facility] [id number] Univers 11:45:00 11:45:00 [place] perez o abigail [facility] 2021-01-02 2021-01-02 Outpatient R SY, [facility] [id number] Univers 11:45:00 11:45:00 [place] ana o f [facility] 2021-01-02 2021-01-02 Orders Doctor JOHANN 1.2.840.114 [id number] Univers 00:00:00 00:00:00 Only Unassigned, MIKE 350.1.13.10 [facility] 4.2.7.2.686 Babak as [phone] [address] 2021-01-02 2021-01-02 [facility]phone [facility] 1.2.346.965 [id number] Univers 00:00:00 00:00:00 [place] Aranda 350.1.13.10 ity of [place].2.[place] [phone] Oh dicwy nal 059 [facility] 2021-01-02 2021-01-02 Refill [facility] 1.2.840.114 [id number] Univers 00:00:00 00:00:00 [place] Aranda 350.1.13.10 ity of [place].2.[place] [id number] [facility] 059 [facility] 2020-12-07 2020-12-07 Social Sciences Instructor Andre Osei Lab Main [facility] 1.2.8 40.114 [id number] Univers 08:05:37 08:20:37 Visit Sy [place] Aranda 350.1.13.10 ity of [place] 4.2.7.2.[place] [phone] [facility] 353 [facility] 2020-12-07 2020-12-07 [facility] [id number] Univers 08:00:00 08:00:00 [place] perez o abigail [facility] 2020-12-07 2020-12-07 Outpatient R SY, [facility] [id number] Univers 08:00:00 08:00:00 [place] jimenes [facility] 2020-12-07 2020-12-07 Telephone Sy, [facility] 1.2.681.735 [id number] Univers 00:00:00 00:00:00 [place] Aranda 350.1.13.10 ity kendra [place] 4.2.7.2.686 Babakannette manzo essio [phone] Oh dical nal [address] [facility] 2020-11-23 2020-11-23 Outpatient R SY, [facility] [id number] Univers 13:37:45 23:59:00 [place] jimenes [facility] 2020-11-23 2020-11-23 Outpatient R SY, [facility] [id number] Univers 13:37:45 23:59:00 [place] jimenes [facility] 2020-11-14 2020-11-14 Outpatient R SY, [facility] [id number] Univers 13:40:00 13:40:00 [place] perez [facility] 2020-10-12 2020-10-12 Outpatient R SY, [facility] [id number] Univers 08:00:00 08:00:00 [place] perez [facility] 2020-09-27 2020-09-27 Outpatient R SY, [facility] [id number] Univers 13:00:00 13:00:00 [place] perez o [facility] 2020-09-22 2020-09-22 Outpatient R SY, [facility] [id number] Univers 09:30:00 09:30:00 [place] perez o [facility] 2020-09-07 2020-09-07 Outpatient R SY, [facility] [id number] Univers 08:45:00 08:45:00 [place] perez [facility] 2020-08-19 2020-08-19 Outpatient R SY, [facility] [id number] Univers 08:45:00 08:45:00 [place] perez o [facility] 2020-08-15 2020-08-15 Outpatient R SY, [facility] [id number] Univers 10:45:00 10:45:00 [place] scotty o f [facility] 2020-08-08 2020-08-08 Outpatient R SY, [facility] [id number] Univers 11:45:00 11:45:00 [place] scotty o f [facility] 2020-08-08 2020-08-08 Social Sciences Instructor Farnaz [facility] 1.2.840.114 [id number] 11:14:44 11:29:44 Visit Lab Main [place] 350.1.13.10 [place] 4.2.7.2.686 Professio [phone] nal 353 [facility] 2020-08-08 2020-08-08 Orders Doctor WILLS 1.2.840.114 [id number] 00:00:00 00:00:00 Only Unassigned, MIKE 350.1.13.10 [place] [facility] 4.2.7.2.686 [id number] 009 2020-08-08 2020-08-08 Telephone [facility] 1.2.311.449 [id number] 00:00:00 00:00:00 [place] 350.1.13.10 [place] 4.2.7.2.686 Professio [phone] nal 059 [facility] 2020-07-25 2020-07-25 Telephone [facility] 1.2.777.204 [id number] 00:00:00 00:00:00 Catrinamerzaheer [place] 350.1.13.10 [place] 4.2.7.2.686 Professio [id number] nal 059 [facility] 2020-07-20 2020-07-20 Outpatient R SY, [facility] [id number] Univers 11:45:00 11:45:00 [place] perez o abigail [facility] 2020-07-20 2020-07-20 Social Sciences Instructor Farnaz [facility] 1.2.840.114 [id number] 10:37:03 10:52:03 Visit Lab Main [place] 350.1.13.10 [place] 4.2.7.2.686 Professio [phone] nal 353 [facility] 2020-07-20 2020-07-20 Orders Doctor JOHANN 1.2.840.114 [id number] 00:00:00 00:00:00 Only Unassigned, MIKE 350.1.13.10 [place] [facility] 4.2.7.2.686 [id number] 009 2020-07-20 2020-07-20 Telephone [facility] 1.2.285.639 [id number] 00:00:00 00:00:00 [place] Aranda 350.1.13.10 [place] 4.2.7.2.686 Professio [id number] [address] 2020-07-13 2020-07-13 Outpatient R [facility] [id number] Univers 10:15:00 10:15:00 [place] jimenes f [facility] 2020-07-13 2020-07-13 Social Sciences Instructor Farnaz [facility] 1.2.840.114 [id number] 09:23:20 09:38:20 Visit Lab Main [place] 350.1.13.10 [place] 4.2.7.2.686 Professio [phone] [address] 2020-07-13 2020-07-13 Telephone [facility] 1.2.425.234 [id number] 00:00:00 00:00:00 [place] 350.1.13.10 [place] 4.2.7.2.686 Professio [id number] [address] 2020-06-19 2020-06-19 Telephone [facility] 1.2.053.440 [id number] 00:00:00 00:00:00 [place] 350.1.13.10 [place] 4.2.7.2.686 Professio [id number] [address] 2020-06-17 2020-06-17 Social Sciences Instructor Farnaz [facility] 1.2.840.114 [id number] 09:22:55 09:37:55 Visit Lab Main [place] 350.1.13.10 [place] 4.2.7.2.686 Professio [phone] [address] 2020-06-17 2020-06-17 [facility] [id number] Univers 09:30:00 09:30:00 [place] jimenes [facility] 2020-06-08 2020-06-08 Telephone [facility] 1.2.859.935 [id number] 00:00:00 00:00:00 [place] Aranda 350.1.13.10 [place] 4.2.7.2.686 Professio [phone] [facility] 059 [facility] 2020-06-07 2020-06-07 Social Sciences Instructor Farnaz [facility] 1.2.840.114 [id number] 08:57:47 09:12:47 Visit Lab Main [place] 350.1.13.10 [place] 4.2.7.2.686 Professio [phone] [facility] 353 [facility] 2020-06-07 2020-06-07 Outpatient R [facility] [id number] Univers 09:00:00 09:00:00 [place] jimenes [facility] 2020-05-23 2020-05-23 Outpatient R [facility] [id number] Univers 09:15:00 09:15:00 [place] jimenes [facility] 2020-05-16 2020-05-16 Outpatient R [facility] [id number] Univers 11:30:00 11:30:00 [place] jimenes [facility] 2020-05-16 2020-05-16 Social Sciences Instructor Farnaz [facility] 1..840.114 [id number] 11:09:17 11:24:17 Visit Lab Main Rosi [id number] [place] 4.2.7.2.686 Professio [id number] [facility] 353 [facility] 2020-05-16 2020-05-16 Orders Doctor JOHANN 1..840.114 [id number] 00:00:00 00:00:00 Only Unassigned, MIKE 350.1.13.10 [place] [facility] 4.2.7.2.686 [id number] 2020-05-16 2020-05-16 Telephone [facility] 1..[id number] [id number] 00:00:00 00:00:00 Qiajuan [place] 350.1.13.10 [place] 4.2.7.2.686 Professio [id number] [facility] 059 [facility] 2020-05-11 2020-05-11 Social Sciences Instructor Farnaz, [facility] 1.2.840.114 [id number] 09:25:07 09:40:07 Visit Lab Main [place] 350.1.13.10 [place] 4.2.7.2.686 Professio [id number] [facility] 353 [facility] 2020-05-11 2020-05-11 Outpatient R MCDOWELL, [facility] [id number] Univers 09:30:00 09:30:[address] [facility] 2020-05-11 2020-05-11 Telephone [facility] [id number] 00:00:00 00:00:00 Catrinaemrjun [place] 350.1.13.10 [place] 4.2.7.2.686 Professio [id number] [address] 2020-05-11 2020-05-11 Telephone [facility] [id number] 00:00:00 00:00:00 Catrinamerjun [place] 350.1.13.10 [place] 4.2.7.2.686 Professio [id number] [facility] [address] [place] [address] 2020-05-04 2020-05-04 Telephone [facility] [id number] 00:00:00 00:00:00 Qiangjun [place] 350.1.13.10 [place] 4.2.7.2.686 Professio [id number] [address] 2020-05-03 2020-05-03 Outpatient R SY, [facility] [id number] Univers 11:30:00 11:30:00 [place] jimenes [facility] 2020-05-03 2020-05-03 Social Sciences Instructor Farnaz, [facility] 1.2.840.114 [id number] 10:05:00 10:20:00 Visit Lab Main [place] 350.1.13.10 [place] 4.2.7.2.686 Professio [phone] [facility] 353 [facility] 2020-05-03 2020-05-03 Orders Doctor JOHANN 1.2.840.114 [id number] 00:00:00 00:00:00 Only Unassigned, MIKE 350.1.13.10 [facility] 4.2.7.2.686 [phone] [id number] 2020-04-27 2020-04-27 Social Sciences Instructor Andre Osei [facility] 1.2.840.114 [id number] 08:24:03 08:39:03 Visit Lab Main [place] 350.1.13.10 [place] 4.2.7.2.686 Professio [phone] [address] 2020-04-27 2020-04-27 Outpatient R [facility] [id number] Univers 08:30:00 08:30:00 [place] jimenes f [facility] 2020-04-27 2020-04-27 [facility] [id number] 00:00:00 00:00:00 Rogerzaheer Rosi 350.1.13.10 [place] 4.2.7.2.686 Professio [phone] [address] 2020-04-20 2020-04-20 [facility] 1.2.840.114 [id number] 00:00:00 00:00:00 Rogerzaheer Aranda 350.1.13.10 [place] 4.2.7.2.686 Professio [phone] [address] 2020-04-01 2020-04-01 Outpatient R TIMBO [facility] [id number] Univers 10:15:00 10:15:[address] [facility] 2020-03-29 2020-03-29 [facility] 1.2.840.114 [id number] 14:32:40 15:25:41 Visit Rogerzaheer Rosi 350.1.13.10 [place] 4.2.7.2.686 Professio [phone] [address] 2020-03-29 2020-03-29 Outpatient R [facility] [id number] Univers 14:40:00 14:40:00 [place] ity o f [facility] 2020-03-22 2020-03-22 Outpatient R SY, [facility] [id number] Univers 15:30:00 15:30:00 QIAMERJUN ity o f [facility] 2020-03-15 2020-03-15 Outpatient R SY, [facility] [id number] Univers 11:15:00 11:15:00 [place] ity o f [facility] 2020-02-24 2020-02-24 Outpatient R SY, [facility] [id number] Univers 08:40:00 08:40:00 [place] ity o [facility] 2020-02-17 2020-02-17 Outpatient R SY, [facility] [id number] Univers 09:15:00 09:15:00 [place] scotty o [facility] 2020-01-11 2020-01-11 Outpatient R SY, [facility] [id number] Univers 12:45:00 12:45:00 [place] ity o [facility] 2019-12-17 2019-12-17 Outpatient R SY, [facility] [id number] Univers 11:00:00 11:00:00 [place] ity o [facility] 2019-11-26 2019-11-26 Outpatient R SY, [facility] [id number] Univers 12:45:00 12:45:00 [place] scotty o [facility] 2019-10-30 2019-10-30 Outpatient R RADIOLOGY [facility] [id number] Univers 00:00:00 00:00:[address] [facility] 2019-10-20 2019-10-20 Outpatient R MCDERMOTT, ALICJA [facility] [id number] Univers 09:30:00 09:30:[address] [facility] 2019-09-30 2019-09-30 Outpatient R SY, [facility] [id number] Univers 08:30:00 08:30:00 [place] ity o [facility] 2019-09-08 2019-09-08 Outpatient R SY, [facility] [id number] Univers 15:20:00 15:20:00 QIAMERJUN ity o [facility] 2019-09-03 2019-09-03 Outpatient R SY, [facility] [id number] Univers 09:00:00 09:00:00 [place] hayes [facility] 2019-07-24 2019-07-24 Outpatient R SY [facility] [id number] Univers 11:45:00 11:45:00 [place] hayes [facility] 2019-06-22 2019-06-22 Outpatient R SY [facility] [id number] Univers 13:30:00 13:30:00 [facility] Results Test Description Test Time Test Comments Results Result Comments Source TROPONIN I 2023-02-02 18:34:44 Test Item Value Reference Range Interpretation Comme nts TROPONIN I (test code = 1527069367) 0.009 ng/mL <=0.034 ROBERT (test code = [...] biotin. Lab Interpretation (test code = Normal 84062-1) [facility] [id number] 18:32:43 Test Item Value Reference Range Interpretation Comments NT-proBNP (test code = 2270 pg/mL <=125 H 10388-0) ROBERT (test code = ROBERT) Positive: Heart Failure Likely Lab Interpretation (test Abnormal code = 05965-1) [facility]2023-10-21 18:17:44 Test Item Value Reference Range Interpretation Comments MAGNESIUM (test code = 8351834326) 1.7 mg/dL 1.7-2.4 Lab Interpretation (test code = Normal 79483-1) [facility] METABOLIC PANEL (55640)2023-02-02 18:17:23 Test Item Value Reference Range Interpretation Comments NA (test code = 138 mmol/L 135-145 0330104656) K (test code = 3.7 mmol/L 3.5-5.0 1682009522) CL (test code = 101 mmol/L 98-108 8919132859) CO2 TOTAL (test code = 28 mmol/L 23-31 3432435716) AGAP (test code = 9 2-16 0116901395) BUN (test code = 17 mg/dL 7-23 0106312601) GLUCOSE (test code = 123 mg/dL 70-110 H 3936598949) CREATININE (test code = 1.15 mg/dL 0.50-1.04 H 7309417136) TOTAL BILI (test code = 0.9 mg/dL 0.1-1.8 3714070256) CALCIUM (test code = 9.0 mg/dL 8.6-10.6 9244657305) T PROTEIN (test code = 7.1 g/dL 6.3-8.2 7882030932) ALBUMIN (test code = 4.3 g/dL 3.5-5.0 0348454052) ALK PHOS (test code = 67 U/L 34-122 3559240548) ALTv (test code = 34 U/L 5-35 1742-6) AST(SGOT) (test code = 37 U/L 13-40 3864144330) eGFR (test code = 46.8 mL/min/1.73m2 0046472507) ROBERT (test code = ROBERT) Association of [...] tests). Lab Interpretation Abnormal (test code = 04038-0) [facility] TylerCREATINE [id number] 18:17:03 Test Item Value Reference Range Interpretation Comments CK (test code = 3205584874) 219 U/L 33-194 H Lab Interpretation (test code = Abnormal 95298-6) [facility] TylerPROTHROMBIN TIME / [id number] 18:15:22 Test Item Value Reference Range Interpretation [...] tions. Lab Interpretation (test Abnormal code = 42813-9) [facility] TylerACTIV[facility] PARTIAL THRMPLAS [id number] 18:06:03 Test Item Value Reference Range Interpretation Comments APTT Patient (test 73 See_Comment H [Automat ed code = 3173-2) message] The system which generated this result transmitted reference range : 23 - 38 Seconds . The reference range was not used to interpr et this result as normal/abnormal . ROBERT (test code = ROBERT) The [facility] patient population mean normal value for aPTT is 30 seconds. Lab Interpretation Abnormal (test code = 49970-3) [facility] Tyler[facility] WITH [id number] 17:55:41 Test Item Value Reference Range Interpretation [...] (test code = 64.0 fL 39.0-49.9 H 96618-3) RDW-CV (test code = 16.5 % 12.0-15.5 H 788-0) PLT (test code = 173 See_Comment [Automated 777-3) message] The sy stem which generated this result transmitted reference range : 166 - 358 10*3/ ?L. The reference r tali was not used to interpret this result as normal/abnormal . MPV (test code = 11.5 fL 9.5-12.9 11979-4) NRBC/100 WBC (test 0.0 See_Comment [Automat ed code = 0969537557) message] The system which generated this result transmitted reference range : 0.0 - 10.0 /100 WBCs. The refer ence range was not u sed to interpret th is result as normal/abnormal . NRBC x10^3 (test code See_Comment [Auto mated = 1688871345) message] The s ystem which generated this result transmitted reference range : 10*3/?L. The reference range was not used to interpret this result as normal/abnormal . GRAN MAT (NEUT) % 65.1 % (test code = 770-8) IMM GRAN % (test code 0.30 % = 2324590692) LYMPH % (test code = 20.5 % 736-9) MONO % (test code = 11.1 % 5905-5) EOS % (test code = 2.3 % 713-8) BASO % (test code = 0.7 % 706-2) GRAN MAT x10^3(ANC) 4.57 10*3/uL 1.88-7.09 (test code = 7396962698) IMM GRAN x10^3 (test 0.00-0.06 code = 9002143762) LYMPH x10^3 (test code 1.44 10*3/uL 1.32-3.29 = 731-0) MONO x10^3 (test code 0.78 10*3/uL 0.33-0.92 = 742-7) EOS x10^3 (test code = 0.16 10*3/uL 0.03-0.39 711-2) BASO x10^3 (test code 0.05 10*3/uL 0.01-0.07 = 704-7) Lab Interpretation Abnormal (test code = 28938-0) [facility] TylerHEPATIC FUNCTION PANEL (11728) (ALB,T.PRO,BILI T,BU/BC,ALT,AST,ALK PHOS)2023-01-11 17:38:51 Test Item Value Reference Range Interpretation Comments TOTAL BILI (test code = 2079842188) 0.5 mg/dL 0.1-1.1 BILI UNCON (test code = 6533780219) 0.6 mg/dL 0.1-1.1 BILI CONJ (test code = 0040901070) 0.0 mg/dL 0.0-0.3 T PROTEIN (test code = 9465768899) 6.7 g/dL 6.3-8.2 ALBUMIN (test code = 9182119950) 4.1 g/dL 3.5-5.0 ALK PHOS (test code = 7917505299) 52 U/L 34-122 ALTv (test code = 1742-6) 20 U/L 5-35 AST(SGOT) (test code = 3137098046) 36 U/L 13-40 Lab Interpretation (test code = Normal 94293-8) [facility] METABOLIC PANEL (NA, K, CL, CO2, GLUCOSE, BUN, CREATININE, CA)2023-01-11 10:18:53 Test Item Value Reference Range Interpretation Comments NA (test code = 135 mmol/L 135-145 2656833723) K (test code = 4.6 mmol/L 3.5-5.0 3838716167) CL (test code = 96 mmol/L 98-108 L 5590721661) CO2 TOTAL (test code = 32 mmol/L 23-31 H 7116391468) AGAP (test code = 7 2-16 5916943676) BUN (test code = 29 mg/dL 7-23 H 8913449096) GLUCOSE (test code = 92 mg/dL 70-110 0163869310) CREATININE (test code = 1.02 mg/dL 0.50-1.04 8072165396) CALCIUM (test code = 9.4 mg/dL 8.6-10.6 3004431491) eGFR (test code = 53.7 mL/min/1.73m2 4599816286) ROBERT (test code = ROBERT) Association of [...] tests). Lab Interpretation Abnormal (test code = 13170-4) [facility]2023-09-29 10:18:53 Test Item Value Reference Range Interpretation Comments MAGNESIUM (test code = 8267508743) 1.8 mg/dL 1.7-2.4 Lab Interpretation (test code = Normal 80292-8) [facility] TylerProthrombin Time / [id number] 09:53:12 Test Item Value Reference Range Interpretation Comments PROTIME PATIENT (test 32.2 See_Comment H [Auto mated message] code = 5964-2) The system [employer] generated this result transmitted ref erence range: 10.1 - 1 2.6 Seconds. The reference range was not used to int erpret this result as normal/abnormal . INR (test code = 6301-6) 2.7 Nor mal INR <1.1; Warfarin Therap eutic range 2.0 to 3. 0 or 2.5 to 3.5, dep ending upon the indica tions. Lab Interpretation (test Abnormal code = 07297-7) [facility] TylerCB WITH [id number] 09:49:29 Test Item Value Reference Range Interpretation Comments WBC (test code = 6.65 See_Comment [Automated 6690-2) message] The sy stem which generated this result transmitted reference range : 4.30 - 11.10 10*3/?L. The reference range was not used to interpret this result as normal/abnormal . RBC (test code = 3.63 See_Comment L [Automated 979-8) message] The sy stem which generated this [...] (test code = 65.8 fL 39.0-49.9 H 91128-3) RDW-CV (test code = 18.0 % 12.0-15.5 H 788-0) PLT (test code = 180 See_Comment [Automated 777-3) message] The sy stem which generated this result transmitted reference range : 166 - 358 10*3/ ?L. The reference r tali was not used to interpret this result as normal/abnormal . MPV (test code = 10.6 fL 9.5-12.9 38385-4) NRBC/100 WBC (test 0.0 See_Comment [Automat ed code = 2285370989) message] The system which generated this result transmitted reference range : 0.0 - 10.0 /100 WBCs. The refer ence range was not u sed to interpret th is result as normal/abnormal . NRBC x10^3 (test code See_Comment [Auto mated = 2484439104) message] The s ystem which generated this result transmitted reference range : 10*3/?L. The reference range was not used to interpret this result as normal/abnormal . GRAN MAT (NEUT) % 60.4 % (test code = 770-8) IMM GRAN % (test code 0.20 % = 1182816155) LYMPH % (test code = 26.9 % 736-9) MONO % (test code = 8.4 % 5905-5) EOS % (test code = 3.3 % 713-8) BASO % (test code = 0.8 % 706-2) GRAN MAT x10^3(ANC) 4.02 10*3/uL 1.88-7.09 (test code = 5994679389) IMM GRAN x10^3 (test 0.00-0.06 code = 3280884180) LYMPH x10^3 (test code 1.79 10*3/uL 1.32-3.29 = 731-0) MONO x10^3 (test code 0.56 10*3/uL 0.33-0.92 = 742-7) EOS x10^3 (test code = 0.22 10*3/uL 0.03-0.39 711-2) BASO x10^3 (test code 0.05 10*3/uL 0.01-0.07 = 704-7) Lab Interpretation Abnormal (test code = 56290-1) [facility] TylerProthrombin Time / [id number] 10:07:42 Test Item Value Reference Range Interpretation Comments PROTIME PATIENT (test 38.4 See_Comment H [Auto mated message] code = 5964-2) The system [employer] generated this result transmitted ref erence range: 10.1 - 1 2.6 Seconds. The reference range was not used to int erpret this result as normal/abnormal . INR (test code = 6301-6) 3.3 Nor mal INR <1.1; Warfarin Therap eutic range 2.0 to 3. 0 or 2.5 to 3.5, dep ending upon the indica tions. Lab Interpretation (test Abnormal code = 46423-8) [facility] TylerBasi Metabolic Panel (NA, K, CL, CO2, GLUCOSE, BUN, CREATININE, CA)2023-01-10 10:06:26 Test Item Value Reference Range Interpretation Comments NA (test code = 137 mmol/L 135-145 8099950623) K (test code = 5.0 mmol/L 3.5-5.0 9829048501) CL (test code = 97 mmol/L 98-108 L 1340643042) CO2 TOTAL (test code = 32 mmol/L 23-31 H 7343811470) AGAP (test code = 8 2-16 1969851411) BUN (test code = 24 mg/dL 7-23 H 7275870056) GLUCOSE (test code = 91 mg/dL 70-110 7710357440) CREATININE (test code = 0.95 mg/dL 0.50-1.04 6031151293) CALCIUM (test code = 9.9 mg/dL 8.6-10.6 8932312161) eGFR (test code = 58.3 mL/min/1.73m2 4886818317) ROBERT (test code = ROBERT) Association of [...] tests). Lab Interpretation Abnormal (test code = 97177-0) [facility] TylerMagnesium [id number] 10:06:26 Test Item Value Reference Range Interpretation Comments MAGNESIUM (test code = 3029515096) 2.0 mg/dL 1.7-2.4 Lab Interpretation (test code = Normal 68450-5) [facility] [id number] 09:55:42 Test Item Value Reference Range Interpretation Comments WBC (test code = 6.25 See_Comment [Automated 9057-2) message] The sy stem which generated this result transmitted reference range : 4.30 - 11.10 10*3/?L. The reference range was not used to interpret this result as normal/abnormal . RBC (test code = 3.77 See_Comment L [Automated 775-0) message] The sy stem which generated this [...] (test code = 66.2 fL 39.0-49.9 H 31974-9) RDW-CV (test code = 18.6 % 12.0-15.5 H 788-0) PLT (test code = 191 See_Comment [Automated 777-3) message] The sy stem which generated this result transmitted reference range : 166 - 358 10*3/ ?L. The reference r tali was not used to interpret this result as normal/abnormal . MPV (test code = 10.2 fL 9.5-12.9 40431-8) NRBC/100 WBC (test 0.0 See_Comment [Automat ed code = 8763183822) message] The system which generated this result transmitted reference range : 0.0 - 10.0 /100 WBCs. The refer ence range was not u sed to interpret th is result as normal/abnormal . NRBC x10^3 (test code See_Comment [Auto mated = 3675496808) message] The s ystem which generated this result transmitted reference range : 10*3/?L. The reference range was not used to interpret this result as normal/abnormal . GRAN MAT (NEUT) % 54.3 % (test code = 770-8) IMM GRAN % (test code 0.20 % = 5444616880) LYMPH % (test code = 30.9 % 736-9) MONO % (test code = 9.3 % 5905-5) EOS % (test code = 4.5 % 713-8) BASO % (test code = 0.8 % 706-2) GRAN MAT x10^3(ANC) 3.40 10*3/uL 1.88-7.09 (test code = 1171650060) IMM GRAN x10^3 (test 0.00-0.06 code = 0809459935) LYMPH x10^3 (test code 1.93 10*3/uL 1.32-3.29 = 731-0) MONO x10^3 (test code 0.58 10*3/uL 0.33-0.92 = 742-7) EOS x10^3 (test code = 0.28 10*3/uL 0.03-0.39 711-2) BASO x10^3 (test code 0.05 10*3/uL 0.01-0.07 = 704-7) Lab Interpretation Abnormal (test code = 29275-9) [facility] TylerTHYROID STIMULATING [id number] 14:28:03 Test Item Value Reference Range Interpretation Comments TSH (test code = 0.58 See_Comment Biotin has been 5738124082) reported to cau se a negative bias, interpret resul ts relative to pat lazarus's use of biotin. [Automated mess age] The system [employer] generated this result transmitted ref erence range: 0.45 - 4 .70 mIU/L. The refe rence range was not u sed to interpret this result as normal/abnor mal. Lab Interpretation (test Normal code = 42885-8) [facility] TylerProthrombin Time / [id number] 11:19:12 Test Item Value Reference Range Interpretation Comments PROTIME PATIENT (test 27.0 See_Comment H [Auto mated message] code = 5964-2) The system [employer] generated this result transmitted ref erence range: 12.0 - 1 4.7 Seconds. The reference range was not used to int erpret this result as normal/abnormal . INR (test code = 6301-6) 2.6 Nor mal INR <1.1; Warfarin Therap eutic range 2.0 to 3. 0 or 2.5 to 3.5, dep ending upon the indica tions. Lab Interpretation (test Abnormal code = 75556-3) [facility] TylerCBC with [id number] 11:18:11 Test Item Value Reference Range Interpretation Comments WBC (test code = 4.52 See_Comment [Automated 6290-2) message] The sy stem which generated this [...] (test code = 65.5 fL 39.0-49.9 H 65411-8) RDW-CV (test code = 18.1 % 12.0-15.5 H 788-0) PLT (test code = 182 See_Comment [Automated 777-3) message] The sy stem which generated this result transmitted reference range : 166 - 358 10*3/ ?L. The reference r tali was not used to interpret this result as normal/abnormal . MPV (test code = 11.1 fL 9.5-12.9 19146-3) NRBC/100 WBC (test 0.0 See_Comment [Automat ed code = 6591883612) message] The system which generated this result transmitted reference range : 0.0 - 10.0 /100 WBCs. The refer ence range was not u sed to interpret th is result as normal/abnormal . NRBC x10^3 (test code See_Comment [Auto mated = 4562233363) message] The s ystem which generated this result transmitted reference range : 10*3/?L. The reference range was not used to interpret this result as normal/abnormal . GRAN MAT (NEUT) % 59.0 % (test code = 770-8) IMM GRAN % (test code 0.20 % = 3034063678) LYMPH % (test code = 25.4 % 736-9) MONO % (test code = 10.4 % 5905-5) EOS % (test code = 3.5 % 713-8) BASO % (test code = 1.5 % 706-2) GRAN MAT x10^3(ANC) 2.66 10*3/uL 1.88-7.09 (test code = 4913446050) IMM GRAN x10^3 (test 0.00-0.06 code = 3539349731) LYMPH x10^3 (test code 1.15 10*3/uL 1.32-3.29 L = 731-0) MONO x10^3 (test code 0.47 10*3/uL 0.33-0.92 = 742-7) EOS x10^3 (test code = 0.16 10*3/uL 0.03-0.39 711-2) BASO x10^3 (test code 0.07 10*3/uL 0.01-0.07 = 704-7) Lab Interpretation Abnormal (test code = 84274-2) [facility] TylerTROP[facility] [id number] 10:50:07 Test Item Value Reference Range Interpretation Comments TROPONIN I (test code = 0.009 ng/mL <=0.034 6292492881) ROBERT (test code = ROBERT) Reference (Normal) [...] biotin. Lab Interpretation Normal (test code = 01119-0) [facility] TylerACTIVATED PARTIAL THRMPLAS [id number] 00:33:16 Test Item Value Reference Range Interpretation Comments APTT Patient (test 37 See_Comment [Automat ed code = 3173-2) message] The system which generated this result transmitted reference range : 23 - 38 Seconds . The reference range was not used to interpr et this result as normal/abnormal . ROBERT (test code = ROBERT) The [facility] patient population mean normal value for aPTT is 30 seconds. Lab Interpretation Normal (test code = 40589-5) [facility] TylerPROTHROMBIN TIME / [id number] 23:46:34 Test Item Value Reference Range Interpretation Comments PROTIME PATIENT (test 28.8 See_Comment H [Auto mated message] code = 5964-2) The system [employer] generated this result transmitted ref erence range: 12.0 - 1 4.7 Seconds. The reference range was not used to int erpret this result as normal/abnormal . INR (test code = 6301-6) 2.8 Nor mal INR <1.1; Warfarin Therap eutic range 2.0 to 3. 0 or 2.5 to 3.5, dep ending upon the indica tions. Lab Interpretation (test Abnormal code = 40072-4) [facility] TylerTROPONIN [id number] 23:45:54 Test Item Value Reference Range Interpretation Comments TROPONIN I (test code = 0.008 ng/mL <=0.034 1952498526) ROBERT (test code = ROBERT) Reference (Normal) [...] biotin. Lab Interpretation Normal (test code = 83434-2) [facility] TylerN-TERMINAL [id number] 23:43:34 Test Item Value Reference Range Interpretation Comments NT-proBNP (test code = 1640 pg/mL <=125 H 72323-3) ROBERT (test code = ROBERT) Positive: Heart Failure Likely Lab Interpretation (test Abnormal code = 97701-7) [facility] TylerMAGNESIUM2023-09-24 23:34:12 Test Item Value Reference Range Interpretation Comments MAGNESIUM (test code = 7894975760) 1.9 mg/dL 1.7-2.4 Lab Interpretation (test code = Normal 34590-6) [facility]. METABOLIC PANEL (10406)2023-01-06 23:33:52 Test Item Value Reference Range Interpretation Comments NA (test code = 142 mmol/L 135-145 3998096626) K (test code = 4.1 mmol/L 3.5-5.0 5543658386) CL (test code = 107 mmol/L 98-108 6642913579) CO2 TOTAL (test code = 26 mmol/L 23-31 9568102981) AGAP (test code = 9 2-16 7991656034) BUN (test code = 8 mg/dL 7-23 3957968585) GLUCOSE (test code = 119 mg/dL 70-110 H 1970023257) CREATININE (test code = 0.84 mg/dL 0.50-1.04 1243997334) TOTAL BILI (test code = 0.4 mg/dL 0.1-1.8 6548671714) CALCIUM (test code = 9.0 mg/dL 8.6-10.6 8779859091) T PROTEIN (test code = 7.1 g/dL 6.3-8.2 7287438433) ALBUMIN (test code = 4.3 g/dL 3.5-5.0 3660469838) ALK PHOS (test code = 72 U/L 34-122 6951151068) ALTv (test code = 29 U/L 5-35 1742-6) AST(SGOT) (test code = 41 U/L 13-40 H 7233687231) eGFR (test code = 67.2 mL/min/1.73m2 7300281471) ROBERT (test code = ROBERT) Association of [...] tests). Lab Interpretation Abnormal (test code = 20398-4) [facility] TylerLIPASE2023-09-24 23:33:52 Test Item Value Reference Range Interpretation Comments LIPASE (test code = 8229692119) 93 U/L 0-220 Lab Interpretation (test code = Normal 74548-2) [facility] [id number] 23:20:30 Test Item Value Reference Range Interpretation Comments WBC (test code = 4.99 See_Comment [Automated 3290-2) message] The sy stem which generated this result transmitted reference range : 4.30 - 11.10 10*3/?L. The reference range was not used to interpret this result as normal/abnormal . RBC (test code = 3.58 See_Comment L [Automated 688-8) message] The sy stem which generated this [...] (test code = 66.8 fL 39.0-49.9 H 27569-3) RDW-CV (test code = 18.2 % 12.0-15.5 H 788-0) PLT (test code = 176 See_Comment [Automated 777-3) message] The sy stem which generated this result transmitted reference range : 166 - 358 10*3/ ?L. The reference r tali was not used to interpret this result as normal/abnormal . MPV (test code = 10.8 fL 9.5-12.9 55134-0) NRBC/100 WBC (test 0.0 See_Comment [Automat ed code = 2166833627) message] The system which generated this result transmitted reference range : 0.0 - 10.0 /100 WBCs. The refer ence range was not u sed to interpret th is result as normal/abnormal . NRBC x10^3 (test code See_Comment [Auto mated = 5586715412) message] The s ystem which generated this result transmitted reference range : 10*3/?L. The reference range was not used to interpret this result as normal/abnormal . GRAN MAT (NEUT) % 61.3 % (test code = 770-8) IMM GRAN % (test code 0.40 % = 0906586550) LYMPH % (test code = 26.1 % 736-9) MONO % (test code = 9.2 % 5905-5) EOS % (test code = 2.0 % 713-8) BASO % (test code = 1.0 % 706-2) GRAN MAT x10^3(ANC) 3.06 10*3/uL 1.88-7.09 (test code = [id number]) IMM GRAN x10^3 (test 0.00-0.06 code = [id number]) LYMPH x10^3 (test code 1.30 10*3/uL 1.32-3.29 L = 731-0) MONO x10^3 (test code 0.46 10*3/uL 0.33-0.92 = 742-7) EOS x10^3 (test code = 0.10 10*3/uL 0.03-0.39 711-2) BASO x10^3 (test code 0.05 10*3/uL 0.01-0.07 = 704-7) Lab Interpretation Abnormal (test code = 26656-3) [facility] [id number] 15:08:40 Test Item Value Reference Range Interpretation Comments PROTIME PATIENT (test 24.8 See_Comment H [Auto mated message] code = 5964-2) The system [employer] generated this result transmitted ref erence range: 12.0 - 1 4.7 Seconds. The reference range was not used to int erpret this result as normal/abnormal . INR (test code = 6301-6) 2.3 Nor mal INR <1.1; Warfarin Therap eutic range 2.0 to 3. 0 or 2.5 to 3.5, dep ending upon the indica tions. Lab Interpretation (test Abnormal code = 00682-3) [facility] [id number] 15:08:40 Test Item Value Reference Range Interpretation Comments PROTIME PATIENT (test 24.8 See_Comment H [Auto mated message] code = 5964-2) The system [employer] generated this result transmitted ref erence range: 12.0 - 1 4.7 Seconds. The reference range was not used to int erpret this result as normal/abnormal . INR (test code = 6301-6) 2.3 Nor mal INR <1.1; Warfarin Therap eutic range 2.0 to 3. 0 or 2.5 to 3.5, dep ending upon the indica tions. Lab Interpretation (test Abnormal code = 05085-7) [facility] [id number] 15:08:40 Test Item Value Reference Range Interpretation Comments PROTIME PATIENT (test 24.8 See_Comment H [Auto mated message] code = 5964-2) The system [employer] generated this result transmitted ref erence range: 12.0 - 1 4.7 Seconds. The reference range was not used to int erpret this result as normal/abnormal . INR (test code = 6301-6) 2.3 Nor mal INR <1.1; Warfarin Therap eutic range 2.0 to 3. 0 or 2.5 to 3.5, dep ending upon the indica tions. Lab Interpretation (test Abnormal code = 35079-2) [facility] / [id number] 18:32:10 Test Item Value Reference Range Interpretation Comments PROTIME PATIENT (test 24.4 See_Comment H [Auto mated message] code = 5964-2) The system [employer] generated this result transmitted ref erence range: 12.0 - 1 4.7 Seconds. The reference range was not used to int erpret this result as normal/abnormal . INR (test code = 6301-6) 2.2 Nor mal INR <1.1; Warfarin Therap eutic range 2.0 to 3. 0 or 2.5 to 3.5, dep ending upon the indica tions. Lab Interpretation (test Abnormal code = 16324-2) [facility]2022-06-11 22:45:29 Test Item Value Reference Range Interpretation Comments Height (test code = 63 in 1725363531) Weight (test code = 102 lbs 8098686967) Systolic BP (test 123 mmHg code = 9416635734) Diastolic BP (test 64 mmHg code = 9167443585) Heart Rate (test code 61 bpm = 3239996081) LVOT peak amrita (test 114.0 cm/s code = 6306415360) LVOT mn grad (test 3.0 mmHg code = 4880654071) Aortic valve mean 209.0 cm/s velocity (test code = 4066765598) Ao peak amrita (test 333.0 cm/s code = 6082697828) Ao VTI (test code = 71.7 cm 2603910229) AV LVOT peak gradient 5.2 mmHg (test code = 1771369011) LVOT peak VTI (test 29.0 cm code = 1372305197) AV Doppler amrita index 0.34 ratio VTI (test code = 5848843728) LV V1 mean (test code 82.60 cm/s = 5809397558) Ao max PG (test code 44.40 mm[Hg] = 9571156705) AV peak gradient 44.4 mmHg (test code = 7112694754) AV mean gradient 21.0 mmHg (test code = 8111554926) Radiology Study observation (narrative) (test code = 99746-5) ROBERT (test code = ROBERT) ?Aortic?Valve: Mechanical [...] captured. The probe was inserted by the tire beader maker. Probe in 0930. Probe out 0940. Moderate sedation was given. 4% Lidocaine was used for local oropharyngeal anesthesia. 1 mg of midazolam and 50 mcg of Fentanyl were administered during the study. There were no complications during the procedure. Based on abnormal findings of 2D echocardiogram, 3D was performed on an acquisition scanner for further assessment of the aortic valve. , RN [facility] METABOLIC PANEL (NA, K, CL, CO2, GLUCOSE, BUN, CREATININE, CA)2022-06-11 09:30:25 Test Item Value Reference Range Interpretation Comments NA (test code = 137 mmol/L 135-145 1420665373) K (test code = 4.3 mmol/L 3.5-5.0 5401459250) CL (test code = 104 mmol/L 98-108 9647263408) CO2 TOTAL (test code = 30 mmol/L 23-31 9149380762) AGAP (test code = 3 2-16 1850227192) BUN (test code = 19 mg/dL 7-23 5025375316) GLUCOSE (test code = 102 mg/dL 70-110 5645033854) CREATININE (test code = 0.93 mg/dL 0.50-1.04 4917682001) CALCIUM (test code = 8.5 mg/dL 8.6-10.6 L 7914064627) eGFR (test code = 59.8 mL/min/1.73m2 3911308499) ROBERT (test code = ROBERT) Association of [...] tests). Lab Interpretation Abnormal (test code = 03554-6) [facility] Test Item Value Reference Range Interpretation Comments MAGNESIUM (test code = 4762821994) 2.1 mg/dL 1.7-2.4 Lab Interpretation (test code = Normal 62386-2) [facility] / [id number] 09:18:08 Test Item Value Reference Range Interpretation Comments PROTIME PATIENT (test 19.8 See_Comment H [Auto mated message] code = 5964-2) The system [employer] generated this result transmitted ref erence range: 10.1 - 1 2.6 Seconds. The reference range was not used to int erpret this result as normal/abnormal . INR (test code = 6301-6) 1.8 Nor mal INR <1.1; Warfarin Therap eutic range 2.0 to 3. 0 or 2.5 to 3.5, dep ending upon the indica tions. Lab Interpretation (test Abnormal code = 29616-0) [facility] 09:18:08 Test Item Value Reference Range Interpretation Comments APTT Patient (test code 89 See_Comment H [Au tomated message] = 3173-2) The system [employer] generated this result transmitted ref erence range: 26 - 36 Seconds. The reference range was not used to int erpret this result as normal/abnormal . Lab Interpretation (test Abnormal code = 39778-2) [facility] Test Item Value Reference Range Interpretation Comments MAGNESIUM (test code = 7589983108) 1.8 mg/dL 1.7-2.4 Lab Interpretation (test code = Normal 42611-3) [facility] (NA, K, CL, CO2, GLUCOSE, BUN, CREATININE, CA)2022-06-10 08:57:55 Test Item Value Reference Range Interpretation Comments NA (test code = 137 mmol/L 135-145 0876313088) K (test code = 4.0 mmol/L 3.5-5.0 8134442736) CL (test code = 100 mmol/L 98-108 2096132465) CO2 TOTAL (test code = 32 mmol/L 23-31 H 3920982663) AGAP (test code = 5 2-16 6828552337) BUN (test code = 24 mg/dL 7-23 H 3892000450) GLUCOSE (test code = 116 mg/dL 70-110 H 6139634192) CREATININE (test code = 1.00 mg/dL 0.50-1.04 6508506204) CALCIUM (test code = 9.1 mg/dL 8.6-10.6 9144094552) eGFR (test code = 55.0 mL/min/1.73m2 7144613941) ROBERT (test code = ROBERT) Association of [...] tests). Lab Interpretation Abnormal (test code = 68039-0) [facility] / [id number] 08:46:38 Test Item Value Reference Range Interpretation [...] tions. Lab Interpretation (test Abnormal code = 15034-4) [facility] 08:46:38 Test Item Value Reference Range Interpretation Comments APTT Patient (test code 85 See_Comment H [Au tomated message] = 3173-2) The system [employer] h generated this result transmitted ref erence range: 26 - 36 Seconds. The reference range was not used to int erpret this result as normal/abnormal . Lab Interpretation (test Abnormal code = 64416-0) [facility] [id number] 08:39:15 Test Item Value Reference Range Interpretation Comments WBC (test code = 4.75 See_Comment [Automated 1790-2) message] The sy stem which generated this result transmitted reference range : 4.30 - 11.10 10*3/?L. The reference range was not used to interpret this result as normal/abnormal . RBC (test code = 3.55 See_Comment L [Automated 569-8) message] The sy stem which generated this [...] (test code = 58.1 fL 39.0-49.9 H 97639-0) RDW-CV (test code = 16.1 % 12.0-15.5 H 788-0) PLT (test code = 197 See_Comment [Automated 777-3) message] The sy stem which generated this result transmitted reference range : 166 - 358 10*3/ ?L. The reference r tali was not used to interpret this result as normal/abnormal . MPV (test code = 10.2 fL 9.5-12.9 44128-7) NRBC/100 WBC (test 0.0 See_Comment [Automat ed code = 4097282596) message] The system which generated this result transmitted reference range : 0.0 - 10.0 /100 WBCs. The refer ence range was not u sed to interpret th is result as normal/abnormal . NRBC x10^3 (test code See_Comment [Auto mated = 2479296236) message] The s ystem which generated this result transmitted reference range : 10*3/?L. The reference range was not used to interpret this result as normal/abnormal . GRAN MAT (NEUT) % 58.4 % (test code = 770-8) IMM GRAN % (test code 0.20 % = 9083160097) LYMPH % (test code = 24.2 % 736-9) MONO % (test code = 10.9 % 5905-5) EOS % (test code = 5.5 % 713-8) BASO % (test code = 0.8 % 706-2) GRAN MAT x10^3(ANC) 2.77 10*3/uL 1.88-7.09 (test code = 5200721739) IMM GRAN x10^3 (test 0.00-0.06 code = 0594074248) LYMPH x10^3 (test code 1.15 10*3/uL 1.32-3.29 L = 731-0) MONO x10^3 (test code 0.52 10*3/uL 0.33-0.92 = 742-7) EOS x10^3 (test code = 0.26 10*3/uL 0.03-0.39 711-2) BASO x10^3 (test code 0.04 10*3/uL 0.01-0.07 = 704-7) Lab Interpretation Abnormal (test code = 58646-1) [facility] 10:39:27 Test Item Value Reference Range Interpretation Comments MAGNESIUM (test code = 5759186770) 1.6 mg/dL 1.7-2.4 L Lab Interpretation (test code = Abnormal 04990-8) [facility] METABOLIC PANEL (NA, K, CL, CO2, GLUCOSE, BUN, CREATININE, CA)2022-06-09 10:39:27 Test Item Value Reference Range Interpretation Comments NA (test code = 139 mmol/L 135-145 3582715699) K (test code = 4.1 mmol/L 3.5-5.0 4153899448) CL (test code = 96 mmol/L 98-108 L 5657670434) CO2 TOTAL (test code = 36 mmol/L 23-31 H 8643455327) AGAP (test code = 7 2-16 5109959320) BUN (test code = 27 mg/dL 7-23 H 5631021183) GLUCOSE (test code = 116 mg/dL 70-110 H 0459529987) CREATININE (test code = 1.21 mg/dL 0.50-1.04 H 4679334681) CALCIUM (test code = 9.3 mg/dL 8.6-10.6 6766823996) eGFR (test code = 44.1 mL/min/1.73m2 2252398875) ROBERT (test code = ROBERT) Association of [...] tests). Lab Interpretation Abnormal (test code = 94164-2) [facility] / [id number] 10:26:27 Test Item Value Reference Range Interpretation Comments PROTIME PATIENT (test 18.7 See_Comment H [Auto mated message] code = 5964-2) The system [employer] generated this result transmitted ref erence range: 10.1 - 1 2.6 Seconds. The reference range was not used to int erpret this result as normal/abnormal . INR (test code = 6301-6) 1.7 Nor mal INR <1.1; Warfarin Therap eutic range 2.0 to 3. 0 or 2.5 to 3.5, dep ending upon the indica tions. Lab Interpretation (test Abnormal code = 33598-6) [facility] [id number] 10:16:07 Test Item Value Reference Range Interpretation Comments WBC (test code = 7.65 See_Comment [Automated 0546-2) message] The sy stem which generated this result transmitted reference range : 4.30 - 11.10 10*3/?L. The reference range was not used to interpret this result as normal/abnormal . RBC (test code = 3.99 See_Comment [Automated 706-8) message] The sy stem which generated this [...] (test code = 58.8 fL 39.0-49.9 H 95699-9) RDW-CV (test code = 16.3 % 12.0-15.5 H 788-0) PLT (test code = 244 See_Comment [Automated 777-3) message] The sy stem which generated this result transmitted reference range : 166 - 358 10*3/ ?L. The reference r tali was not used to interpret this result as normal/abnormal . MPV (test code = 10.1 fL 9.5-12.9 79787-0) NRBC/100 WBC (test 0.0 See_Comment [Automat ed code = 1439354887) message] The system which generated this result transmitted reference range : 0.0 - 10.0 /100 WBCs. The refer ence range was not u sed to interpret th is result as normal/abnormal . NRBC x10^3 (test code See_Comment [Auto mated = 4204663341) message] The s ystem which generated this result transmitted reference range : 10*3/?L. The reference range was not used to interpret this result as normal/abnormal . GRAN MAT (NEUT) % 75.8 % (test code = 770-8) IMM GRAN % (test code 0.30 % = 5251769156) LYMPH % (test code = 12.5 % 736-9) MONO % (test code = 8.5 % 5905-5) EOS % (test code = 2.0 % 713-8) BASO % (test code = 0.9 % 706-2) GRAN MAT x10^3(ANC) 5.80 10*3/uL 1.88-7.09 (test code = 3080217378) IMM GRAN x10^3 (test 0.00-0.06 code = 2129511430) LYMPH x10^3 (test code 0.96 10*3/uL 1.32-3.29 L = 731-0) MONO x10^3 (test code 0.65 10*3/uL 0.33-0.92 = 742-7) EOS x10^3 (test code = 0.15 10*3/uL 0.03-0.39 711-2) BASO x10^3 (test code 0.07 10*3/uL 0.01-0.07 = 704-7) Lab Interpretation Abnormal (test code = 55052-4) [facility]2022-[facility]-07 21:12:16 Test Item Value Reference Range Interpretation Comments Height (test code = 63 in 5546874293) Weight (test code = 101 lbs 1761294715) Systolic BP (test code 127 mmHg = 3034984146) Diastolic BP (test code 43 mmHg = 9590934346) Heart Rate (test code = 50 bpm 9872571576) BSA (test code = 1.45 m2 3550833142) LVOT diameter (test 1.62 cm code = 3209718580) LVOT area (test code = 2.05 cm2 0742650118) Ao root diam (test code 2.34 cm = 5721696057) Aortic root (test code 2.34 cm = 2327973470) Ao root annulus (test 2.34 cm code = 1309042639) LA size (test code = 4.9 cm 7641123915) TR Peak Amrita (test code 209.0 cm/s = 9760619363) Triscuspid Valve 17.5 mmHg Regurgitation Peak Gradient (test code = 4494755540) PV REGURGITATION PEAK 8.9 mmHg GRADIENT (test code = 6979521239) PI dec slope (test code 81.30 cm/s2 = 4453606590) E wave decelartion time 0.26 s (test code = 0598470071) MV Peak A Amrita (test 58.0 cm/s code = 6240306643) MV Peak E Amrita (test 116.0 cm/s code = 2579357377) E/A ratio (test code = 2.00 ratio 7687931051) MR max PG (test code = 125.90 mm[Hg] 6548622972) MR max amrita (test code = 561.00 cm/s 9556766984) Mr max amrita (test code = 561.0 m/s 3521273840) MV Prop V (test code = 33.60 cm/s 0727852462) LAV(MOD-sp4) (test code 50.40 mL = 4199591747) MV E/e' septal (test 5.1 cm/s code = 2550003006) Tapse (test code = 1.37 cm 2256941462) LVOT stroke volume 42.60 cm3 (test code = 8465387967) LVOT peak amrita (test 96.3 cm/s code = 2409011126) LVOT mn grad (test code 1.6 mmHg = 9392705142) AV LVOT peak gradient 3.7 mmHg (test code = 2999338312) LVOT peak VTI (test 20.8 cm code = 0346817952) LV V1 mean (test code = 59.50 cm/s 5842163692) LA Volume Index (BP) 39.6 mL/m2 (test code = 5111422448) LA volume (BP) (test 57.2 mL code = 0695755717) LAV(MOD-sp2) (test code 59.90 mL = 9413172165) AV regurgitation 482.7 ms pressure 1/2 time (test code = 7001956506) AI dec slope (test code 212.30 cm/s2 = 3114728908) AI max amrita (test code = 349.90 cm/s 5207755614) AI max PG (test code = 49.00 mm[Hg] 7289245816) LVIDD (test code = 3.90 cm 2760322038) Left Ventricular End 66.7 mL Diastolic Volume by Teichholz Method (test code = 4915679) EF(Teich) (test code = 67.60 % 6860999158) FS (test code = 37 % 4122913277) EF - 2D (test code = 67.60 % 34404737) IVS (test code = 1.22 cm 6438124679) Interventricular Septum 1.22 cm Diastolic Thickness by 2D (test code = 4550005) LVPWD (test code = 1.12 cm 9380032235) PW (test code = 1.12 cm 0.6-1.6 8896994972) LVIDS (test code = 2.47 cm 7866869545) Left Ventricular End 21.6 mL Systolic Volume by Teichholz Method (test code = 4736786) Aortic valve mean 210.4 cm/s velocity (test code = 6448199887) Ao peak amrita (test code 307.4 cm/s = 5432222650) Ao VTI (test code = 68.2 cm 3313301883) AV area by cont VTI 0.6 cm2 (test code = 9923793716) AV area peak amrita (test 0.6 cm2 code = 0196540523) Ao max PG (test code = 37.80 mm[Hg] 3611503190) AV peak gradient (test 37.8 mmHg code = 1652062577) AV valve area (test 0.63 cm2 code = 9285849799) AV mean gradient (test 19.8 mmHg code = 0473950627) Radiology Study observation (narrative) (test code = 26508-6) ROBERT (test code = ROBERT) ?Left?Ventricle: Left [...] 2D, color flow Doppler and spectral Doppler. [facility] METABOLIC [id number] 05:06:36 Test Item Value Reference Range Interpretation [...] not appl icable for dialysis patien ts Shuttle Operator RASHAAD ACUNA [id number] 05:06:35 Test Item Value Reference Range Interpretation Comments MAGNESIUM (BEAKER) 1.7 mg/dL 1.6-2.6 Specimen slightly (test code = 627) hemolyzed Shuttle Operator RASHAAD ACUNA LPROTHROMBIN TIME/[id number] 04:57:12 Test Item Value Reference Range Interpretation [...] mechanical heart valves.CBC W/PLT COUNT & AUTO [id number] 04:49:51 Test Item Value Reference Range Interpretation [...] 0.00-1.00 PERCENT (BEAKER) (test code = 2801) [id number] 10:05:40 Test Item Value Reference Range Interpretation Comments PARTIAL THROMBOPLASTIN TIME 49.3 seconds 22.5-36.0 H (BEAKER) (test code = 760) [id number] 07:34:27 Test Item Value Reference Range Interpretation Comments PARTIAL THROMBOPLASTIN TIME > seconds 22.5-36.0 HH (BEAKER) (test code = 760) [id number] 07:21:03 Test Item Value Reference Range Interpretation Comments MAGNESIUM (BEAKER) (test code = 2.0 mg/dL 1.6-2.6 627) Shuttle Operator ID - ARMAND LBASIC METABOLIC [id number] 07:21:02 Test Item Value Reference Range Interpretation [...] not appl icable for dialysis patien ts Shuttle Operator ID - PIDYLAN LPROTHROMBIN TIME/[id number] 07:11:04 Test Item Value Reference Range Interpretation [...] mechanical heart valves.CBC W/PLT COUNT & AUTO [id number] 06:42:15 Test Item Value Reference Range Interpretation [...] 0.00-1.00 PERCENT (BEAKER) (test code = 2801) [id number] 01:06:03 Test Item Value Reference Range Interpretation Comments PARTIAL THROMBOPLASTIN TIME 90.3 seconds 22.5-36.0 H (BEAKER) (test code = 760) [id number] 23:34:15 Test Item Value Reference Range Interpretation Comments PARTIAL THROMBOPLASTIN TIME > seconds 22.5-36.0 HH (BEAKER) (test code = 760) [id number] 14:56:56 Test Item Value Reference Range Interpretation Comments PARTIAL THROMBOPLASTIN TIME 40.2 seconds 22.5-36.0 H (BEAKER) (test code = 760) ECG 12 [id number] 13:41:35Ventricular Rate 135 BPMAtrial Rate 147 BPMP-R Interval 166 msQRS Duration 104 msQ-T Interval 324 msQTC Calculation(Bazett) 486 msP [place] 32 degreesR [place] 44 degreesT [place] 130 degrees atrial flutter with variable conductionLeft atrial enlargementNonspecific ST and T wave abnormalityAbnormal ECGWhen compared with ECG of 19-MAY-2022 11:39,atrial flutter is presentVent. rate has increased BY 65 BPMST no longer depressed in Anterior leadsST now depressed in Lateral leadsT wave inversion no longer evidentin Anterior leadsConfirmed by Devon Flores ([id number]) on 05/25/2022 1:41:27 PM [facility] 12:49:04 Test Item Value Reference Range Interpretation Comments PARTIAL THROMBOPLASTIN TIME 139.9 seconds 22.5-36.0 H (BEAKER) (test code = 760) [id number] 08:00:43 Test Item Value Reference Range Interpretation Comments MAGNESIUM (BEAKER) (test code = 1.5 mg/dL 1.6-2.6 L 627) Shuttle Operator ID - MARCOBASIC METABOLIC [id number] 08:00:42 Test Item Value Reference Range Interpretation [...] not appl icable for dialysis patien ts Shuttle Operator ID - [id number] 06:54:28 Test Item Value Reference Range Interpretation Comments PARTIAL THROMBOPLASTIN TIME 180.9 seconds 22.5-36.0 HH (BEAKER) (test code = 760) [id number] 06:30:25 Test Item Value Reference Range Interpretation Comments PARTIAL THROMBOPLASTIN TIME 61.3 seconds 22.5-36.0 H (BEAKER) (test code = 760) [id number] 04:16:14 Test Item Value Reference Range Interpretation Comments PARTIAL THROMBOPLASTIN TIME > seconds 22.5-36.0 HH (BEAKER) (test code = 760) PROTHROMBIN TIME/[id number] 03:42:33 Test Item Value Reference Range Interpretation [...] mechanical heart valves.CBC W/PLT COUNT & AUTO [id number] 03:35:52 Test Item Value Reference Range Interpretation [...] 0.00-1.00 PERCENT (BEAKER) (test code = 2801) [id number] 20:27:00 Test Item Value Reference Range Interpretation Comments PARTIAL THROMBOPLASTIN TIME 53.4 seconds 22.5-36.0 H (BEAKER) (test code = 760) [id number] 18:26:32 Test Item Value Reference Range Interpretation Comments PARTIAL THROMBOPLASTIN TIME 112.2 seconds 22.5-36.0 H (BEAKER) (test code = 760) [id number] 10:53:07 Test Item Value Reference Range Interpretation Comments PARTIAL THROMBOPLASTIN TIME 48.7 seconds 22.5-36.0 H (BEAKER) (test code = 760) [id number] 04:20:11 Test Item Value Reference Range Interpretation Comments PARTIAL THROMBOPLASTIN TIME 50.2 seconds 22.5-36.0 H (BEAKER) (test code = 760) [id number] 02:16:45 Test Item Value Reference Range Interpretation Comments PARTIAL THROMBOPLASTIN TIME 120.7 seconds 22.5-36.0 H (BEAKER) (test code = 760) [id number] 01:49:02 Test Item Value Reference Range Interpretation Comments MAGNESIUM (BEAKER) (test code = 1.7 mg/dL 1.6-2.6 627) Shuttle Operator ID - [id number] 01:49:02 Test Item Value Reference Range Interpretation Comments PHOSPHORUS (BEAKER) (test code = 4.7 mg/dL 2.3-4.7 604) Shuttle Operator ID - BSBASIC METABOLIC [id number] 01:49:01 Test Item Value Reference Range Interpretation [...] not appl icable for dialysis patien ts Shuttle Operator ID - BSPROTHROMBIN TIME/[id number] 01:46:19 Test Item Value Reference Range Interpretation [...] mechanical heart valves.CBC W/PLT COUNT & AUTO [id number] 01:29:16 Test Item Value Reference Range Interpretation [...] H PERCENT (BEAKER) (test code = 2801) [id number] 18:43:50 Test Item Value Reference Range Interpretation Comments PARTIAL THROMBOPLASTIN TIME 56.0 seconds 22.5-36.0 H (BEAKER) (test code = 760) [id number] 16:49:50 Test Item Value Reference Range Interpretation Comments PARTIAL THROMBOPLASTIN TIME 123.0 seconds 22.5-36.0 H (BEAKER) (test code = 760) [id number] 08:57:26 Test Item Value Reference Range Interpretation Comments PARTIAL THROMBOPLASTIN TIME 48.3 seconds 22.5-36.0 H (BEAKER) (test code = 760) [id number] 05:52:08 Test Item Value Reference Range Interpretation Comments PARTIAL THROMBOPLASTIN TIME 134.4 seconds 22.5-36.0 H (BEAKER) (test code = 760) PROTHROMBIN TIME/[id number] 05:18:02 Test Item Value Reference Range Interpretation Comments PROTIME (BEAKER) (test code = 14.1 seconds 11.9-14.2 759) INR (BEAKER) (test code = 370) 1.16 <=5.90 RECOMMENDED COUMADIN/WARFARIN INR THERAPY RANGESSTANDARD DOSE: 2.0 - 3.0 Includes: PROPHYLAXIS for venous thrombosis, systemic embolization; TREATMENT for venous thrombosis and/or pulmonary embolus.HIGH RISK: Target INR is 2.5-3.5 for patients with mechanical heart valves.[id number] 05:06:39 Test Item Value Reference Range Interpretation Comments PHOSPHORUS (BEAKER) (test code = 4.9 mg/dL 2.3-4.7 H 604) Shuttle Operator ID - BSBASIC METABOLIC [id number] 05:06:38 Test Item Value Reference Range Interpretation [...] not appl icable for dialysis patien ts Shuttle Operator ID - [id number] 05:06:38 Test Item Value Reference Range Interpretation Comments MAGNESIUM (BEAKER) (test code = 1.7 mg/dL 1.6-2.6 627) Shuttle Operator ID - BSCBC W/PLT COUNT & AUTO [id number] 04:48:51 Test Item Value Reference Range Interpretation [...] 0.00-1.00 PERCENT (BEAKER) (test code = 2801) [id number] 21:33:18 Test Item Value Reference Range Interpretation Comments PARTIAL THROMBOPLASTIN TIME 51.5 seconds 22.5-36.0 H (BEAKER) (test code = 760) HEMOGLOBIN AND [id number] 18:35:26 Test Item Value Reference Range Interpretation Comments HEMOGLOBIN (BEAKER) (test code = 9.5 GM/DL 11.2-15.7 L 410) HEMATOCRIT (BEAKER) (test code = 30.9 % 34.1-44.9 L 411) Shuttle Operator ID - [id number] 14:30:55 Test Item Value Reference Range Interpretation Comments PARTIAL THROMBOPLASTIN TIME 59.3 seconds 22.5-36.0 H (BEAKER) (test code = 760) [id number] 06:21:11 Test Item Value Reference Range Interpretation Comments PARTIAL THROMBOPLASTIN TIME 62.1 seconds 22.5-36.0 H (BEAKER) (test code = 760) PROTHROMBIN TIME/[id number] 03:22:14 Test Item Value Reference Range Interpretation Comments PROTIME (BEAKER) (test code = 14.8 seconds 11.9-14.2 H 759) INR (BEAKER) (test code = 370) 1.23 <=5.90 RECOMMENDED COUMADIN/WARFARIN INR THERAPY RANGESSTANDARD DOSE: 2.0 - 3.0 Includes: PROPHYLAXIS for venous thrombosis, systemic embolization; TREATMENT for venous thrombosis and/or pulmonary embolus.HIGH RISK: Target INR is 2.5-3.5 for patients with mechanical heart valves.[id number] 03:16:55 Test Item Value Reference Range Interpretation Comments MAGNESIUM (BEAKER) (test code = 2.2 mg/dL 1.6-2.6 627) Shuttle Operator ID - [id number] 03:16:55 Test Item Value Reference Range Interpretation Comments PHOSPHORUS (BEAKER) (test code = 3.8 mg/dL 2.3-4.7 604) Shuttle Operator ID - BSBASIC METABOLIC [id number] 03:16:54 Test Item Value Reference Range Interpretation [...] not appl icable for dialysis patien ts Shuttle Operator ID - BSCBC W/PLT COUNT & AUTO [id number] 02:57:48 Test Item Value Reference Range Interpretation [...] PERCENT (BEAKER) (test code = 2801) Prepare [id number] 23:54:00 Test Item Value Reference Range Interpretation Comments CROSSMATCH (test code = 2264) COMPATIBLE Unit ABO (test code = A Pos 7838554) UNIT NUMBER (test code = [id number] 934-0) Status (test code = 0255445) TX_TIMEINCHART Blood Bank Product (test code RED BLOOD CELLS = 2263) PRODUCT CODE (test code = E6620V90 933-2) [facility] [id number] 23:54:00 Test Item Value Reference Range Interpretation Comments CROSSMATCH (test code = 2264) COMPATIBLE Unit ABO (test code = A Pos 4782233) UNIT NUMBER (test code = [id number] 934-0) Status (test code = 2049252) TX_TIMEINCHART Blood Bank Product (test code RED BLOOD CELLS = 2263) PRODUCT CODE (test code = E7841E25 933-2) [facility] [id number] 23:54:00 Test Item Value Reference Range Interpretation Comments CROSSMATCH (test code = 2264) COMPATIBLE Unit ABO (test code = A Pos 5053038) UNIT NUMBER (test code = [id number] 934-0) Status (test code = 7469428) TX_TIMEINCHART Blood Bank Product (test code RED BLOOD CELLS = 2263) PRODUCT CODE (test code = G0042J44 933-2) [facility] [id number] 23:54:00 Test Item Value Reference Range Interpretation Comments CROSSMATCH (test code = 2264) COMPATIBLE Unit ABO (test code = A Pos 1283009) UNIT NUMBER (test code = [id number] 934-0) Status (test code = 3653688) TX_TIMEINCHART Blood Bank Product (test code RED BLOOD CELLS = 2263) PRODUCT CODE (test code = F5544S09 933-2) [facility] [id number] 23:54:00 Test Item Value Reference Range Interpretation Comments CROSSMATCH (test code = 2264) COMPATIBLE Unit ABO (test code = A Pos 3128115) UNIT NUMBER (test code = [id number] 934-0) Status (test code = 1029469) TX_TIMEINCHART Blood Bank Product (test code RED BLOOD CELLS = 2263) PRODUCT CODE (test code = W0161H86 933-2) [facility] [id number] 23:54:00 Test Item Value Reference Range Interpretation Comments CROSSMATCH (test code = 2264) COMPATIBLE Unit ABO (test code = A Pos 1097109) UNIT NUMBER (test code = [id number] 934-0) Status (test code = 5079936) TX_TIMEINCHART Blood Bank Product (test code RED BLOOD CELLS = 2263) PRODUCT CODE (test code = N1855H16 933-2) [facility] [id number] 23:54:00 Test Item Value Reference Range Interpretation Comments CROSSMATCH (test code = 2264) COMPATIBLE Unit ABO (test code = A Pos 8702812) UNIT NUMBER (test code = [id number] 934-0) Status (test code = 3694531) TX_TIMEINCHART Blood Bank Product (test code RED BLOOD CELLS = 2263) PRODUCT CODE (test code = [id number] 933-2) [facility] [id number] 23:54:00 Test Item Value Reference Range Interpretation Comments CROSSMATCH (test code = 2264) COMPATIBLE Unit ABO (test code = A Pos 1435040) UNIT NUMBER (test code = [id number] 934-0) Status (test code = 1970439) TX_TIMEINCHART Blood Bank Product (test code RED BLOOD CELLS = 2263) PRODUCT CODE (test code = J8993H75 933-2) [facility] [id number] 23:54:00 Test Item Value Reference Range Interpretation Comments CROSSMATCH (test code = 2264) COMPATIBLE Unit ABO (test code = A Pos 9772099) UNIT NUMBER (test code = [id number] 934-0) Status (test code = 5237402) TX_TIMEINCHART Blood Bank Product (test code RED BLOOD CELLS = 2263) PRODUCT CODE (test code = U8876G44 933-2) [facility] [id number] 23:54:00 Test Item Value Reference Range Interpretation Comments CROSSMATCH (test code = 2264) COMPATIBLE Unit ABO (test code = A Pos 9286631) UNIT NUMBER (test code = [id number] 934-0) Status (test code = 6169444) TX_TIMEINCHART Blood Bank Product (test code RED BLOOD CELLS = 2263) PRODUCT CODE (test code = R5909F09 933-2) [facility] [id number] 23:54:00 Test Item Value Reference Range Interpretation Comments CROSSMATCH (test code = 2264) COMPATIBLE Unit ABO (test code = A Pos 3959414) UNIT NUMBER (test code = [id number] 934-0) Status (test code = 4594128) TX_TIMEINCHART Blood Bank Product (test code RED BLOOD CELLS = 2263) PRODUCT CODE (test code = Z9393C37 933-2) [facility] [id number] 23:54:00 Test Item Value Reference Range Interpretation Comments CROSSMATCH (test code = 2264) COMPATIBLE Unit ABO (test code = A Pos 8997060) UNIT NUMBER (test code = [id number] 934-0) Status (test code = 7472364) TX_TIMEINCHART Blood Bank Product (test code RED BLOOD CELLS = 2263) PRODUCT CODE (test code = W3437Y64 933-2) [facility] [id number] 23:54:00 Test Item Value Reference Range Interpretation Comments CROSSMATCH (test code = 2264) COMPATIBLE Unit ABO (test code = A Pos 0358194) UNIT NUMBER (test code = [id number] 934-0) Status (test code = 1606685) TX_TIMEINCHART Blood Bank Product (test code RED BLOOD CELLS = 2263) PRODUCT CODE (test code = J6259C45 933-2) [facility] [id number] 23:54:00 Test Item Value Reference Range Interpretation Comments CROSSMATCH (test code = 2264) COMPATIBLE Unit ABO (test code = A Pos 8355425) UNIT NUMBER (test code = [id number] 934-0) Status (test code = 8438504) TX_TIMEINCHART Blood Bank Product (test code RED BLOOD CELLS = 2263) PRODUCT CODE (test code = G7641Z01 933-2) [facility] [id number] 23:54:00 Test Item Value Reference Range Interpretation Comments CROSSMATCH (test code = 2264) COMPATIBLE Unit ABO (test code = A Pos 1263838) UNIT NUMBER (test code = [id number] 934-0) Status (test code = 5420688) TX_TIMEINCHART Blood Bank Product (test code RED BLOOD CELLS = 2263) PRODUCT CODE (test code = V6430E55 933-2) [facility] [id number] 23:54:00 Test Item Value Reference Range Interpretation Comments CROSSMATCH (test code = 2264) COMPATIBLE Unit ABO (test code = A Pos 7816678) UNIT NUMBER (test code = [id number] 934-0) Status (test code = 2934412) TX_TIMEINCHART Blood Bank Product (test code RED BLOOD CELLS = 2263) PRODUCT CODE (test code = U6824W07 933-2) [facility] [id number] 23:54:00 Test Item Value Reference Range Interpretation Comments CROSSMATCH (test code = 2264) COMPATIBLE Unit ABO (test code = A Pos 3258053) UNIT NUMBER (test code = [id number] 934-0) Status (test code = 5978219) TX_TIMEINCHART Blood Bank Product (test code RED BLOOD CELLS = 2263) PRODUCT CODE (test code = B6784O76 933-2) [facility] [id number] 23:54:00 Test Item Value Reference Range Interpretation Comments CROSSMATCH (test code = 2264) COMPATIBLE Unit ABO (test code = A Pos 8330533) UNIT NUMBER (test code = [id number] 934-0) Status (test code = 9949199) TX_TIMEINCHART Blood Bank Product (test code RED BLOOD CELLS = 2263) PRODUCT CODE (test code = M6351H41 933-2) [facility] [id number] 23:54:00 Test Item Value Reference Range Interpretation Comments CROSSMATCH (test code = 2264) COMPATIBLE Unit ABO (test code = A Pos 2177460) UNIT NUMBER (test code = [id number] 934-0) Status (test code = 8847949) TX_TIMEINCHART Blood Bank Product (test code RED BLOOD CELLS = 2263) PRODUCT CODE (test code = R7708R01 933-2) [facility] Center[facility]MO[facility] AND [id number] 21:46:53 Test Item Value Reference Range Interpretation Comments HEMOGLOBIN (BEAKER) (test code = 9.0 GM/DL 11.2-15.7 L 410) HEMATOCRIT (BEAKER) (test code = 30.5 % 34.1-44.9 L 411) Shuttle Operator ID - [id number] Echo W/Doppler(CW/PW/Color)2022-05-21 18:02:14Ejection FractionSLEH ECHO HEARTLAB [facility]2D Echo W/Doppler(CW/PW/Color)2022-05-21 18:02:14Ejection FractionSLEH ECHO HEARTLAB [facility] Echo W/Doppler(CW/PW/Color) 2022-05-21 18:02:14Ejection FractionSLEH ECHO HEARTLAB [facility] Echo W/Doppler(CW/PW/Color)2022-05-21 18:02:14Ejection FractionSLEH ECHO HEARTLAB [facility] Echo W/Doppler(CW/PW/Color)2022-05-21 18:02:14Ejection FractionSLEH ECHO HEARTLAB [facility] Echo W/Doppler(CW/PW/Color) 2022-05-21 18:02:14Ejection FractionSLEH ECHO HEARTLAB MKSANDRA [facility]2D Echo W/Doppler(CW/PW/Color)2022-05-21 18:02:14Ejection FractionSLEH ECHO HEARTLAB [facility]2D Echo W/Doppler(CW/PW/Color)2022-05-21 18:02:14[facility](CW/PW/Color) 2022-05-21 18:02:14Ejection FractionSLEH ECHO HEARTLAB [facility] Echo W/Doppler(CW/PW/Color)2022-05-21 18:02:14Ejection FractionSLEH ECHO HEARTLAB [facility] Echo W/Doppler(CW/PW/Color)2022-05-21 18:02:14Ejection FractionSLEH ECHO HEARTLAB [facility] Echo W/Doppler(CW/PW/Color) 2022-05-21 18:02:14Ejection FractionSLE ECHO HEARTLAB [facility] Echo W/Doppler(CW/PW/Color)2022-05-21 18:02:14Ejection FractionSLE ECHO HEARTLAB [facility] Echo W/Doppler(CW/PW/Color)2022-05-21 18:02:14Ejection [facility]LEH [facility]Do[facility](CW/PW/Color) 2022-05-21 18:02:14Ejection FractionSLE ECHO HEARTLAB [facility] Echo W/Doppler(CW/PW/Color)2022-05-21 18:02:14Ejection FractionSLEH ECHO HEARTLAB [facility] Echo W/Doppler(CW/PW/Color)2022-05-21 18:02:14Ejection FractionSLEH ECHO HEARTLAB [facility] Echo W/Doppler(CW/PW/Color) 2022-05-21 18:02:14Ejection FractionSLEH ECHO HEARTLAB [facility] Echo W/Doppler(CW/PW/Color)2022-05-21 18:02:14Ejection FractionSLEH ECHO HEARTLAB [facility] 15:07:17 Test Item Value Reference Range Interpretation Comments PARTIAL THROMBOPLASTIN TIME 68.4 seconds 22.5-36.0 H (BEAKER) (test code = 760) PROTHROMBIN TIME/[id number] 15:05:56 Test Item Value Reference Range Interpretation Comments PROTIME (BEAKER) (test code = 15.5 seconds 11.9-14.2 H 759) INR (BEAKER) (test code = 370) 1.31 <=5.90 RECOMMENDED COUMADIN/WARFARIN INR THERAPY RANGESSTANDARD DOSE: 2.0 - 3.0 Includes: PROPHYLAXIS for venous thrombosis, systemic embolization; TREATMENT for venous thrombosis and/or pulmonary embolus.HIGH RISK: Target INR is 2.5-3.5 for patients with mechanical heart valves.TSH/FREE T4 IF [id number] 13:50:00 Test Item Value Reference Range Interpretation Comments THYROID STIMULATING HORMONE 1.746 uIU/mL 0.350-4.940 (BEAKER) (test code = 772) Shuttle Operator ID - NIMOAYA LHEMOGLOBIN AND [id number] 13:00:10 Test Item Value Reference Range Interpretation Comments HEMOGLOBIN (BEAKER) (test code = 9.0 GM/DL 11.2-15.7 L 410) HEMATOCRIT (BEAKER) (test code = 29.3 % 34.1-44.9 L 411) Shuttle Operator ID - [id number] 08:55:39 Test Item Value Reference Range Interpretation Comments PARTIAL THROMBOPLASTIN TIME 70.0 seconds 22.5-36.0 H (BEAKER) (test code = 760) [id number] 05:39:20 Test Item Value Reference Range Interpretation Comments PHOSPHORUS (BEAKER) (test code = 3.3 mg/dL 2.3-4.7 604) Shuttle Operator ID - MARCOBASIC METABOLIC [id number] 05:39:19 Test Item Value Reference Range Interpretation [...] not appl icable for dialysis patien ts Shuttle Operator ID - UTLINDPSGPXGHQ4541-07-51 05:39:19 Test Item Value Reference Range Interpretation Comments MAGNESIUM (BEAKER) (test code = 1.6 mg/dL 1.6-2.6 627) Shuttle Operator ID - MARCOCBC W/PLT COUNT & AUTO [id number] 05:18:48 Test Item Value Reference Range Interpretation [...] 0.00-1.00 PERCENT (BEAKER) (test code = 2801) [id number] 01:34:38 Test Item Value Reference Range Interpretation Comments PARTIAL THROMBOPLASTIN TIME 94.3 seconds 22.5-36.0 H (BEAKER) (test code = 760) PROTHROMBIN TIME/[id number] 01:32:54 Test Item Value Reference Range Interpretation Comments PROTIME (BEAKER) (test code = 15.8 seconds 11.9-14.2 H 759) INR (BEAKER) (test code = 370) 1.35 <=5.90 RECOMMENDED COUMADIN/WARFARIN INR THERAPY RANGESSTANDARD DOSE: 2.0 - 3.0 Includes: PROPHYLAXIS for venous thrombosis, systemic embolization; TREATMENT for venous thrombosis and/or pulmonary embolus.HIGH RISK: Target INR is 2.5-3.5 for patients with mechanical heart valves.HEMOGLOBIN AND [id number] 20:48:52 Test Item Value Reference Range Interpretation Comments HEMOGLOBIN (BEAKER) (test code = 8.6 GM/DL 11.2-15.7 L 410) HEMATOCRIT (BEAKER) (test code = 27.9 % 34.1-44.9 L 411) Shuttle Operator ID - [id number] 17:34:13 Test Item Value Reference Range Interpretation Comments PARTIAL THROMBOPLASTIN TIME 53.7 seconds 22.5-36.0 H (BEAKER) (test code = 760) PROTHROMBIN TIME/[id number] 17:33:32 Test Item Value Reference Range Interpretation Comments PROTIME (BEAKER) (test code = 16.0 seconds 11.9-14.2 H 759) INR (BEAKER) (test code = 370) 1.37 <=5.90 RECOMMENDED COUMADIN/WARFARIN INR THERAPY RANGESSTANDARD DOSE: 2.0 - 3.0 Includes: PROPHYLAXIS for venous thrombosis, systemic embolization; TREATMENT for venous thrombosis and/or pulmonary embolus.HIGH RISK: Target INR is 2.5-3.5 for patients with mechanical heart valves.[id number] 13:24:26 Test Item Value Reference Range Interpretation Comments PARTIAL THROMBOPLASTIN TIME 70.7 seconds 22.5-36.0 H (BEAKER) (test code = 760) HEMOGLOBIN AND [id number] 13:10:45 Test Item Value Reference Range Interpretation Comments HEMOGLOBIN (BEAKER) (test code = 8.4 GM/DL 11.2-15.7 L 410) HEMATOCRIT (BEAKER) (test code = 27.0 % 34.1-44.9 L 411) Shuttle Operator ID - [id number] 08:19:00 Test Item Value Reference Range Interpretation Comments CROSSMATCH (test code = 2264) COMPATIBLE Unit ABO (test code = A Pos 6847596) UNIT NUMBER (test code = [id number] 934-0) Status (test code = 4912656) ISSUED Blood Bank Product (test code RED BLOOD CELLS = 2263) PRODUCT CODE (test code = D0159K93 933-2) [facility] [id number] 08:19:00 Test Item Value Reference Range Interpretation Comments CROSSMATCH (test code = 2264) COMPATIBLE Unit ABO (test code = A Pos 7441940) UNIT NUMBER (test code = [id number] 934-0) Status (test code = 3573660) ISSUED Blood Bank Product (test code RED BLOOD CELLS = 2263) PRODUCT CODE (test code = S7778E65 933-2) [facility] 05:24:24 Test Item Value Reference Range Interpretation Comments PARTIAL THROMBOPLASTIN TIME 91.6 seconds 22.5-36.0 H (BEAKER) (test code = 760) [id number] 04:22:23 Test Item Value Reference Range Interpretation Comments MAGNESIUM (BEAKER) (test code = 1.8 mg/dL 1.6-2.6 627) Shuttle Operator ID - ARMAND [id number] 04:22:23 Test Item Value Reference Range Interpretation Comments PHOSPHORUS (BEAKER) (test code = 4.1 mg/dL 2.3-4.7 604) Shuttle Operator ID - PIAYA LBASIC METABOLIC [id number] 04:22:22 Test Item Value Reference Range Interpretation [...] not appl icable for dialysis patien ts Shuttle Operator ID - PIAYA LPROTHROMBIN TIME/[id number] 03:58:55 Test Item Value Reference Range Interpretation [...] mechanical heart valves.CBC W/PLT COUNT & AUTO [id number] 03:54:23 Test Item Value Reference Range Interpretation [...] 0.00-1.00 PERCENT (BEAKER) (test code = 2801) [id number] 23:23:33 Test Item Value Reference Range Interpretation Comments PARTIAL THROMBOPLASTIN TIME 63.2 seconds 22.5-36.0 H (BEAKER) (test code = 760) HEMOGLOBIN AND [id number] 21:26:00 Test Item Value Reference Range Interpretation Comments HEMOGLOBIN (BEAKER) (test code = 7.6 GM/DL 11.2-15.7 L 410) HEMATOCRIT (BEAKER) (test code = 24.8 % 34.1-44.9 L 411) Shuttle Operator ID - [id number] 17:30:54 Test Item Value Reference Range Interpretation Comments PARTIAL THROMBOPLASTIN TIME 37.0 seconds 22.5-36.0 H (BEAKER) (test code = 760) PROTHROMBIN TIME/[id number] 17:29:53 Test Item Value Reference Range Interpretation Comments PROTIME (BEAKER) (test code = 18.3 seconds 11.9-14.2 H 759) INR (BEAKER) (test code = 370) 1.62 <=5.90 RECOMMENDED COUMADIN/WARFARIN INR THERAPY RANGESSTANDARD DOSE: 2.0 - 3.0 Includes: PROPHYLAXIS for venous thrombosis, systemic embolization; TREATMENT for venous thrombosis and/or pulmonary embolus.HIGH RISK: Target INR is 2.5-3.5 for patients with mechanical heart valves.PROTHROMBIN TIME/[id number] 12:31:00 Test Item Value Reference Range Interpretation Comments PROTIME (BEAKER) (test code = 18.7 seconds 11.9-14.2 H 759) INR (BEAKER) (test code = 370) 1.61 <=5.90 RECOMMENDED COUMADIN/WARFARIN INR THERAPY RANGESSTANDARD DOSE: 2.0 - 3.0 Includes: PROPHYLAXIS for venous thrombosis, systemic embolization; TREATMENT for venous thrombosis and/or pulmonary embolus.HIGH RISK: Target INR is 2.5-3.5 for patients with mechanical heart valves.HEMOGLOBIN AND [id number] 12:24:20 Test Item Value Reference Range Interpretation Comments HEMOGLOBIN (BEAKER) (test code = 7.4 GM/DL 11.2-15.7 L 410) HEMATOCRIT (BEAKER) (test code = 23.7 % 34.1-44.9 L 411) Shuttle Operator ID - [id number]-Glucose nkype5725-13-42 05:40:23 Test Item Value Reference Range Interpretation Comments POC-Glucose Meter (test 78 mg/dL 70-110 : TE STED AT [facility] code = 1538) [address] [facility], [address]: Shuttle Operator/Techni valarie ID = [id number] for Yumi, James Lab Interpretation (test Normal code = 28128-6) [facility] [id number] 05:40:23 Test Item Value Reference Range Interpretation Comments POC-Glucose Meter (test 78 mg/dL 70-110 : TE STED AT [facility] code = 1538) [address] [facility], [address] 30: Shuttle Operator/Techni valarie ID = [id number] for Yumi, James Lab Interpretation (test Normal code = 08438-9) [facility] [id number] 05:40:23 Test Item Value Reference Range Interpretation Comments POC-Glucose Meter (test 78 mg/dL 70-110 : TE STED AT [facility] code = 1538) [address] [place] [address], [address] 30: Shuttle Operator/Techni valarie ID = [id number] for Yumi, James Lab Interpretation (test Normal code = 83983-1) [facility] [id number] 05:40:23 Test Item Value Reference Range Interpretation Comments POC-Glucose Meter (test 78 mg/dL 70-110 : TE STED AT [facility] code = 1538) [address] [place] [address], [address]: Shuttle Operator/Techni valarie ID = [id number] for Yumi, James Lab Interpretation (test Normal code = 72147-1) [facility]-Glucose [id number] 05:40:23 Test Item Value Reference Range Interpretation Comments POC-Glucose Meter (test 78 mg/dL 70-110 : TE STED AT [facility] code = 1538) [address] [place] [address], [address] 30: Shuttle Operator/Techni valarie ID = [id number] for Yumi, James Lab Interpretation (test Normal code = 66749-5) [facility] [id number] 05:40:23 Test Item Value Reference Range Interpretation Comments POC-Glucose Meter (test 78 mg/dL 70-110 : TE STED AT [facility] code = 1538) [address] [place] [address], [address] 30: Shuttle Operator/Techni valarie ID = [id number] for Yumi, James Lab Interpretation (test Normal code = 15104-6) [facility] [id number] 05:40:23 Test Item Value Reference Range Interpretation Comments POC-Glucose Meter (test 78 mg/dL 70-110 : TE STED AT [facility] code = 1538) [address] [place] [address], [address]: Shuttle Operator/Techni valarie ID = [id number] for Yumi, James Lab Interpretation (test Normal code = 48752-3) [facility]-Glucose kooco6320-43-07 05:40:23 Test Item Value Reference Range Interpretation Comments POC-Glucose Meter (test 78 mg/dL 70-110 : TE STED AT [facility] code = 1538) [address] [place] [address], [address] 30: Shuttle Operator/Techni valarie ID = [id number] for Yumi, James Lab Interpretation (test Normal code = 47552-4) [facility]-Glucose [id number] 05:40:23 Test Item Value Reference Range Interpretation Comments POC-Glucose Meter (test 78 mg/dL 70-110 : TE STED AT [facility] code = 1538) [address] [place] [address], [facility] 30: Shuttle Operator/Techni valarie ID = [id number] for Yumi, James Lab Interpretation (test Normal code = 13725-9) [facility]-Glucose [id number] 05:40:23 Test Item Value Reference Range Interpretation Comments POC-Glucose Meter (test 78 mg/dL 70-110 : TE STED AT [facility] code = 1538) [address] [place] [address], [facility] 30: Shuttle Operator/Techni valarie ID = [id number] for Yumi, James Lab Interpretation (test Normal code = 28669-5) [facility]-Glucose [id number] 05:40:23 Test Item Value Reference Range Interpretation Comments POC-Glucose Meter (test 78 mg/dL 70-110 : TE STED AT [facility] code = 1538) [address] [place] [address], [facility] 30: Shuttle Operator/Techni valarie ID = [id number] for Yumi, James Lab Interpretation (test Normal code = 86047-5) [facility]-Glucose [id number] 05:40:23 Test Item Value Reference Range Interpretation Comments POC-Glucose Meter (test 78 mg/dL 70-110 : TE STED AT [facility] code = 1538) [address] [place] [address], [facility] 30: Shuttle Operator/Techni valarie ID = [id number] for Yumi, James Lab Interpretation (test Normal code = 61592-3) [facility]-Glucose [id number] 05:40:23 Test Item Value Reference Range Interpretation Comments POC-Glucose Meter (test 78 mg/dL 70-110 : TE STED AT [facility] code = 1538) [address] [place] [address], [facility] 30: Shuttle Operator/Techni valarie ID = [id number] for Yumi, James Lab Interpretation (test Normal code = 72005-0) [facility] yrmma4559-00-16 05:40:23 Test Item Value Reference Range Interpretation Comments POC-Glucose Meter (test 78 mg/dL 70-110 : TE STED AT [facility] code = 1538) [address] [place] [address], [address] 30: Shuttle Operator/Techni valarie ID = [id number] for Yumi, James Lab Interpretation (test Normal code = 32581-1) [facility]-Glucose [id number] 05:40:23 Test Item Value Reference Range Interpretation Comments POC-Glucose Meter (test 78 mg/dL 70-110 : TE STED AT [facility] code = 1538) [address] [place] [address], [facility] 30: Shuttle Operator/Techni valarie ID = [id number] for Yumi, James Lab Interpretation (test Normal code = 17781-0) [facility]-Glucose [id number] 05:40:23 Test Item Value Reference Range Interpretation Comments POC-Glucose Meter (test 78 mg/dL 70-110 : TE STED AT [facility] code = 1538) [address] [place] [address], [address] 30: Shuttle Operator/Techni valarie ID = [id number] for Yumi, James Lab Interpretation (test Normal code = 02547-7) [facility]-Glucose [id number] 05:40:23 Test Item Value Reference Range Interpretation Comments POC-Glucose Meter (test 78 mg/dL 70-110 : TE STED AT [facility] code = 1538) [address] [place] [address], [facility] 30: Shuttle Operator/Techni valarie ID = [id number] for Yumi, James Lab Interpretation (test Normal code = 39793-8) [facility] [id number] 05:40:23 Test Item Value Reference Range Interpretation Comments POC-Glucose Meter (test 78 mg/dL 70-110 : TE STED AT [facility] code = 1538) [address] [place] [address], [facility] 30: Shuttle Operator/Techni valarie ID = [id number] for Yumi, James Lab Interpretation (test Normal code = 27332-0) [facility] [facility] [id number] 05:40:23 Test Item Value Reference Range Interpretation Comments POC-Glucose Meter (test 78 mg/dL 70-110 : TE STED AT [facility] code = 1538) [address] [facility], 770 30: Shuttle Operator/Techni valarie ID = [id number] for James Eason Lab Interpretation (test Normal code = 97161-3) [facility]-Glucose [id number] 05:40:23 Test Item Value Reference Range Interpretation Comments POC-Glucose Meter (test 78 mg/dL 70-110 : TE STED AT [facility] code = 1538) [address] [facility], 770 30: Shuttle Operator/Techni valarie ID = [id number] for James Eason Lab Interpretation (test Normal code = 63120-4) [facility]-Glucose [id number] 05:40:23 Test Item Value Reference Range Interpretation Comments POC-Glucose Meter (test 78 mg/dL 70-110 : TE STED AT [facility] code = 1538) [address] [facility], 770 30: Shuttle Operator/Techni valarie ID = [id number] for James Eason Lab Interpretation (test Normal code = 62389-7) [facility]-GLUCOSE [id number] 05:40:23 Test Item Value Reference Range Interpretation Comments POC-GLUCOSE METER 78 mg/dL 70-110 : TESTED A T [facility] 6720 (BEAKER) (test code = JOSELITO Franco [facility], 1538) [address]: Shuttle Operator/Techni valarie ID = [id number] for James Cisneros [id number] 04:23:09 Test Item Value Reference Range Interpretation Comments MAGNESIUM (BEAKER) (test code = 2.1 mg/dL 1.6-2.6 627) Shuttle Operator ID - ARMAND [id number] 04:23:09 Test Item Value Reference Range Interpretation Comments PHOSPHORUS (BEAKER) (test code = 1.9 mg/dL 2.3-4.7 L 604) Shuttle Operator ID - ARMAND LBASIC METABOLIC [id number] 04:23:08 Test Item Value Reference Range Interpretation [...] (test code = 697) EGFR (BEAKER) 85 Interpretati on of eGFR (test code = [...] not appl icable for dialysis patien ts Shuttle Operator ID - PIAYA LPROTHROMBIN TIME/[id number] 04:07:24 Test Item Value Reference Range Interpretation [...] mechanical heart valves.CBC W/PLT COUNT & AUTO [id number] 04:00:27 Test Item Value Reference Range Interpretation [...] PERCENT (BEAKER) (test code = 2801) POCT-GLUCOSE [id number] 23:14:02 Test Item Value Reference Range Interpretation Comments POC-GLUCOSE METER 86 mg/dL 70-110 : TESTED A T [facility] 6720 (BEAKER) (test code = [place], 1538) [address]: Shuttle Operator/Techni valarie ID = [id number] for Robles Hanson BUN AND CREATININE [id number] 21:02:50 Test Item Value Reference Range Interpretation Comments BLOOD UREA 10 mg/dL 7-21 NITROGEN (BEAKER) (test code = 354) CREATININE 0.79 mg/dL 0.57-1.25 (BEAKER) (test code = 358) BUN/CREAT RATIO 13 For a normal individual on (BEAKER) (test a normal diet , the code = reference inter [place] for the 5565307644) mass ratio rang es between 12:1 and [...] not appl icable for dialysis patien ts Shuttle Operator ID - [id number] 21:02:49 Test Item Value Reference Range Interpretation Comments MAGNESIUM (BEAKER) (test code = 2.1 mg/dL 1.6-2.6 627) Shuttle Operator ID - [id number] 21:02:49 Test Item Value Reference Range Interpretation Comments POTASSIUM (BEAKER) (test code = 3.7 meq/L 3.5-5.1 379) Shuttle Operator ID - BSHEMOGLOBIN AND [id number] 20:18:40 Test Item Value Reference Range Interpretation Comments HEMOGLOBIN (BEAKER) (test code = 7.5 GM/DL 11.2-15.7 L 410) HEMATOCRIT (BEAKER) (test code = 23.4 % 34.1-44.9 L 411) Shuttle Operator ID - [id number], CTA [id number] 19:41:00Unlisted Reason for Exam - Click Yes and Enter Reason Below->YesUnlisted Reason for Exam->Looking for mesenteric ischemia. [facility] : 1955 Sex: [...] them to the physician. Signed: Ayden Goff [facility] Verified Date/Time: 05/18/2022 19:41:[address] [facility] abdomen & [id number] 19:41:00FINAL REPORT CLINICAL HISTORY: Mesenteric ischemia. Comparison:None. TECHNIQUE:CTA of the abdomen and pelvis with coronal [...] The celiac axis and SMA are patent. Thereare single renal arteries bilaterally with marked atherosclerosis stenosis of the proximal left renal artery. The DOMINGO, aortic and iliac bifurcations are patent. No active extravasation. GI TRACT: Thereis a segment of small bowel in the lower mid abdomen with abnormally thickened tucker compatible withenteritis. There is no bowel obstruction. No pneumatosis [...] There is a small volume of hemoperitoneum. Nodiscrete source of hemorrhage identified. 3. The abnormal wall thickening of the small bowel within the lower abdomen is compatible with enteritis with infectious, inflammatory, and ischemic etiologiesconsidered. 4. Cholelithiasis. 5. Mild sigmoid diverticulosis. 6. Chronic appearing compression deformity of L1 with 0.7 cm retropulsion of the superior endplate. No evidence of high-grade spinal canalstenosis given lack of intrathecal contrast. The findings were discussed with nurse Robles on 05/18/2022 at the time of dictation who will relay them to the physician. Signed: Ayden Goff MDReport VerifiedDate/Time: 05/18/2022 19:41:16 [facility]22[facility] 19:08:28 Test Item Value Reference Range Interpretation Comments POC-GLUCOSE METER 91 mg/dL 70-110 : TESTED A T [facility] 67[address] (BEAKER) (test code = [place], 1538) [address]: Shuttle Operator/Techni valarie ID = [id number] for Scarlet Maravilla HIGH SENSITIVITY TROPONIN [id number] 16:22:26 Test Item Value Reference Range Interpretation Comments HIGH SENSITIVITY TROPONIN I (test 9 pg/ml <=17 code = 9414391) Shuttle Operator ID - BSThe EQUALIZING SAW OPERATOR STAT High Sensitivity Troponin-I results should be used in conjunctionwith other diagnostic information such as ECG, clinical observations and information, and patient symptoms to aid in the diagnosis of SD.Urinalysis w/Microscopic + Reflex to [id number] 16:12:56 Test Item Value Reference Range Interpretation Comments Color, UA (test code Yellow = 5778-6) Clarity, UA (test Hazy code = 5767-9) Specific [place], UA 1.045 1.001-1.035 H (test code = 5811-5) pH, UA (test code = 6.5 5.0-8.0 5803-2) Protein, UA (test 20 mg/dL Negative A code = 68394-0) Glucose, UA (test Negative Negative code = 365) Ketones, UA (test Negative Negative code = 2514-8) Bilirubin, UA (test Negative Negative code = 41724-8) Blood, UA (test code Moderate Negative A = 05775-9) Nitrite, UA (test Negative Negative code = 5802-4) Leukocytes, UA (test Large Negative A code = 5799-2) Urobilinogen, UA 0.2 0.2-1.0 (test code = 75915-1) RBC, UA (test code = 34 See_Comment [Autom ated 31806-0) message] The system which generated this result [...] . Bacteria, UA (test Few code = 59826-9) Squam Epithel, UA <1 See_Comment [Automate d (test code = 97697-6) messag e] The system which generated this result transmit bandar reference range : /HPF. The reference range was not used to interpret this result as normal/abnormal . Specimen Source (test code = 2795) ROBERT (test code = ROBERT) Shuttle Operator ID - [auto]Shuttle Operator ID - tech Lab Interpretation Abnormal (test code = 33899-0) [facility] Reflex to Culture 2022-05-18 16:12:56 Test Item Value Reference Range Interpretation Comments Color, UA (test code Yellow = 5778-6) Clarity, UA (test Hazy code = 5767-9) Specific [place], UA 1.045 1.001-1.035 H (test code = 5811-5) pH, UA (test code = 6.5 5.0-8.0 5803-2) Protein, UA (test 20 mg/dL Negative A code = 25596-0) Glucose, UA (test Negative Negative code = 365) Ketones, UA (test Negative Negative code = 2514-8) Bilirubin, UA (test Negative Negative code = 43303-4) Blood, UA (test code Moderate Negative A = 32274-0) Nitrite, UA (test Negative Negative code = 5802-4) Leukocytes, UA (test Large Negative A code = 5799-2) Urobilinogen, UA 0.2 0.2-1.0 (test code = 22897-1) RBC, UA (test code = 34 See_Comment [Autom ated 23519-9) message] The system which generated this result [...] . Bacteria, UA (test Few code = 81735-3) Squam Epithel, UA <1 See_Comment [Automate d (test code = 49356-6) messag e] The system which generated this result transmit bandar reference range : /HPF. The reference range was not used to interpret this result as normal/abnormal . Specimen Source (test code = 2795) ROBERT (test code = ROBERT) Shuttle Operator ID - [auto]Shuttle Operator ID - tech Lab Interpretation Abnormal (test code = 74917-2) [facility] Reflex to Culture 2022-05-18 16:12:56 Test Item Value Reference Range Interpretation Comments Color, UA (test code Yellow = 5778-6) Clarity, UA (test Hazy code = 5767-9) Specific [place], UA 1.045 1.001-1.035 H (test code = 5811-5) pH, UA (test code = 6.5 5.0-8.0 5803-2) Protein, UA (test 20 mg/dL Negative A code = 26977-8) Glucose, UA (test Negative Negative code = 365) Ketones, UA (test Negative Negative code = 2514-8) Bilirubin, UA (test Negative Negative code = 79406-7) Blood, UA (test code Moderate Negative A = 69377-6) Nitrite, UA (test Negative Negative code = 5802-4) Leukocytes, UA (test Large Negative A code = 5799-2) Urobilinogen, UA 0.2 0.2-1.0 (test code = 02546-7) RBC, UA (test code = 34 See_Comment [Autom ated 11567-6) message] The system which generated this result [...] . Bacteria, UA (test Few code = 10934-6) Squam Epithel, UA <1 See_Comment [Automate d (test code = 52911-4) messag e] The system which generated this result transmit bandar reference range : /HPF. The reference range was not used to interpret this result as normal/abnormal . Specimen Source (test code = 2795) ROBERT (test code = ROBERT) Shuttle Operator ID - [auto]Shuttle Operator ID - tech Lab Interpretation Abnormal (test code = 08692-8) [facility] Reflex to Culture 2022-05-18 16:12:56 Test Item Value Reference Range Interpretation Comments Color, UA (test code Yellow = 5778-6) Clarity, UA (test Hazy code = 5767-9) Specific [place], UA 1.045 1.001-1.035 H (test code = 5811-5) pH, UA (test code = 6.5 5.0-8.0 5803-2) Protein, UA (test 20 mg/dL Negative A code = 05761-5) Glucose, UA (test Negative Negative code = 365) Ketones, UA (test Negative Negative code = 2514-8) Bilirubin, UA (test Negative Negative code = 02188-9) Blood, UA (test code Moderate Negative A = 18525-4) Nitrite, UA (test Negative Negative code = 5802-4) Leukocytes, UA (test Large Negative A code = 5799-2) Urobilinogen, UA 0.2 0.2-1.0 (test code = 00719-4) RBC, UA (test code = 34 See_Comment [Autom ated 20597-3) message] The system which generated this result [...] . Bacteria, UA (test Few code = 14083-2) Squam Epithel, UA <1 See_Comment [Automate d (test code = 60286-1) messag e] The system which generated this result transmit bandar reference range : /HPF. The reference range was not used to interpret this result as normal/abnormal . Specimen Source (test code = 2795) ROBERT (test code = ROBERT) Shuttle Operator ID - [auto]Shuttle Operator ID - tech Lab Interpretation Abnormal (test code = 55999-8) [facility] Reflex to Culture 2022-05-18 16:12:56 Test Item Value Reference Range Interpretation Comments Color, UA (test code Yellow = 5778-6) Clarity, UA (test Hazy code = 5767-9) Specific [place], UA 1.045 1.001-1.035 H (test code = 5811-5) pH, UA (test code = 6.5 5.0-8.0 5803-2) Protein, UA (test 20 mg/dL Negative A code = 74492-9) Glucose, UA (test Negative Negative code = 365) Ketones, UA (test Negative Negative code = 2514-8) Bilirubin, UA (test Negative Negative code = 00163-8) Blood, UA (test code Moderate Negative A = 82452-0) Nitrite, UA (test Negative Negative code = 5802-4) Leukocytes, UA (test Large Negative A code = 5799-2) Urobilinogen, UA 0.2 0.2-1.0 (test code = 20293-6) RBC, UA (test code = 34 See_Comment [Autom ated 46842-9) message] The system which generated this result [...] . Bacteria, UA (test Few code = 44698-8) Squam Epithel, UA <1 See_Comment [Automate d (test code = 94991-8) messag e] The system which generated this result transmit bandar reference range : /HPF. The reference range was not used to interpret this result as normal/abnormal . Specimen Source (test code = 2795) ROBERT (test code = ROBERT) Shuttle Operator ID - [auto]Shuttle Operator ID - tech Lab Interpretation Abnormal (test code = 26722-4) [facility] Reflex to Culture 2022-05-18 16:12:56 Test Item Value Reference Range Interpretation Comments Color, UA (test code Yellow = 5778-6) Clarity, UA (test Hazy code = 5767-9) Specific [place], UA 1.045 1.001-1.035 H (test code = 5811-5) pH, UA (test code = 6.5 5.0-8.0 5803-2) Protein, UA (test 20 mg/dL Negative A code = 68844-8) Glucose, UA (test Negative Negative code = 365) Ketones, UA (test Negative Negative code = 2514-8) Bilirubin, UA (test Negative Negative code = 97874-9) Blood, UA (test code Moderate Negative A = 97935-2) Nitrite, UA (test Negative Negative code = 5802-4) Leukocytes, UA (test Large Negative A code = 5799-2) Urobilinogen, UA 0.2 0.2-1.0 (test code = 11193-4) RBC, UA (test code = 34 See_Comment [Autom ated 29945-7) message] The system which generated this result [...] . Bacteria, UA (test Few code = 67906-1) Squam Epithel, UA See_Comment [Automate d (test code = 93982-1) messag e] The system which generated this result transmit bandar reference range : /HPF. The reference range was not used to interpret this result as normal/abnormal . Specimen Source (test code = 2795) ROBERT (test code = ROBERT) Shuttle Operator ID - [auto]Shuttle Operator ID - tech Lab Interpretation Abnormal (test code = 43231-1) [facility] Reflex to Culture 2022-05-18 16:12:56 Test Item Value Reference Range Interpretation Comments Color, UA (test code Yellow = 5778-6) Clarity, UA (test Hazy code = 5767-9) Specific [place], UA 1.045 1.001-1.035 H (test code = 5811-5) pH, UA (test code = 6.5 5.0-8.0 5803-2) Protein, UA (test 20 mg/dL Negative A code = 23203-9) Glucose, UA (test Negative Negative code = 365) Ketones, UA (test Negative Negative code = 2514-8) Bilirubin, UA (test Negative Negative code = 29039-3) Blood, UA (test code Moderate Negative A = 19350-9) Nitrite, UA (test Negative Negative code = 5802-4) Leukocytes, UA (test Large Negative A code = 5799-2) Urobilinogen, UA 0.2 0.2-1.0 (test code = 11250-8) RBC, UA (test code = 34 See_Comment [Autom ated 10497-1) message] The system which generated this result [...] . Bacteria, UA (test Few code = 64698-7) Squam Epithel, UA See_Comment [Automate d (test code = 83200-1) messag e] The system which generated this result transmit bandar reference range : /HPF. The reference range was not used to interpret this result as normal/abnormal . Specimen Source (test code = 2795) ROBERT (test code = ROBERT) Shuttle Operator ID - [auto]Shuttle Operator ID - tech Lab Interpretation Abnormal (test code = 75361-3) [facility] Reflex to Culture 2022-05-18 16:12:56 Test Item Value Reference Range Interpretation Comments Color, UA (test code Yellow = 5778-6) Clarity, UA (test Hazy code = 5767-9) Specific [place], UA 1.045 1.001-1.035 H (test code = 5811-5) pH, UA (test code = 6.5 5.0-8.0 5803-2) Protein, UA (test 20 mg/dL Negative A code = 08288-9) Glucose, UA (test Negative Negative code = 365) Ketones, UA (test Negative Negative code = 2514-8) Bilirubin, UA (test Negative Negative code = 62465-5) Blood, UA (test code Moderate Negative A = 17865-1) Nitrite, UA (test Negative Negative code = 5802-4) Leukocytes, UA (test Large Negative A code = 5799-2) Urobilinogen, UA 0.2 0.2-1.0 (test code = 30898-3) RBC, UA (test code = 34 See_Comment [Autom ated 80351-9) message] The system which generated this result [...] . Bacteria, UA (test Few code = 81371-6) Squam Epithel, UA See_Comment [Automate d (test code = 31733-1) messag e] The system which generated this result transmit bandar reference range : /HPF. The reference range was not used to interpret this result as normal/abnormal . Specimen Source (test code = 2795) ROBERT (test code = ROBERT) Shuttle Operator ID - [auto]Shuttle Operator ID - tech Lab Interpretation Abnormal (test code = 16205-7) [facility] Reflex to Culture 2022-05-18 16:12:56 Test Item Value Reference Range Interpretation Comments Color, UA (test code Yellow = 5778-6) Clarity, UA (test Hazy code = 5767-9) Specific [place], UA 1.045 1.001-1.035 H (test code = 5811-5) pH, UA (test code = 6.5 5.0-8.0 5803-2) Protein, UA (test 20 mg/dL Negative A code = 20602-0) Glucose, UA (test Negative Negative code = 365) Ketones, UA (test Negative Negative code = 2514-8) Bilirubin, UA (test Negative Negative code = 82012-5) Blood, UA (test code Moderate Negative A = 90382-3) Nitrite, UA (test Negative Negative code = 5802-4) Leukocytes, UA (test Large Negative A code = 5799-2) Urobilinogen, UA 0.2 0.2-1.0 (test code = 16840-3) RBC, UA (test code = 34 See_Comment [Autom ated 11151-9) message] The system which generated this result [...] . Bacteria, UA (test Few code = 13874-7) Squam Epithel, UA See_Comment [Automate d (test code = 27999-6) messag e] The system which generated this result transmit bandar reference range : /HPF. The reference range was not used to interpret this result as normal/abnormal . Specimen Source (test code = 2795) ROBERT (test code = ROBERT) Shuttle Operator ID - [auto]Shuttle Operator ID - tech Lab Interpretation Abnormal (test code = 94906-2) [facility] Reflex to Culture 2022-05-18 16:12:56 Test Item Value Reference Range Interpretation Comments Color, UA (test code Yellow = 5778-6) Clarity, UA (test Hazy code = 5767-9) Specific [place], UA 1.045 1.001-1.035 H (test code = 5811-5) pH, UA (test code = 6.5 5.0-8.0 5803-2) Protein, UA (test 20 mg/dL Negative A code = 31837-7) Glucose, UA (test Negative Negative code = 365) Ketones, UA (test Negative Negative code = 2514-8) Bilirubin, UA (test Negative Negative code = 99941-6) Blood, UA (test code Moderate Negative A = 78400-1) Nitrite, UA (test Negative Negative code = 5802-4) Leukocytes, UA (test Large Negative A code = 5799-2) Urobilinogen, UA 0.2 0.2-1.0 (test code = 75868-3) RBC, UA (test code = 34 See_Comment [Autom ated 75931-8) message] The system which generated this result [...] . Bacteria, UA (test Few code = 98307-3) Squam Epithel, UA See_Comment [Automate d (test code = 58643-1) messag e] The system which generated this result transmit bandar reference range : /HPF. The reference range was not used to interpret this result as normal/abnormal . Specimen Source (test code = 2795) ROBERT (test code = ROBERT) Shuttle Operator ID - [auto]Shuttle Operator ID - tech Lab Interpretation Abnormal (test code = 30429-9) [facility] Reflex to Culture 2022-05-18 16:12:56 Test Item Value Reference Range Interpretation Comments Color, UA (test code Yellow = 5778-6) Clarity, UA (test Hazy code = 5767-9) Specific [place], UA 1.045 1.001-1.035 H (test code = 5811-5) pH, UA (test code = 6.5 5.0-8.0 5803-2) Protein, UA (test 20 mg/dL Negative A code = 36730-3) Glucose, UA (test Negative Negative code = 365) Ketones, UA (test Negative Negative code = 2514-8) Bilirubin, UA (test Negative Negative code = 63014-2) Blood, UA (test code Moderate Negative A = 99138-6) Nitrite, UA (test Negative Negative code = 5802-4) Leukocytes, UA (test Large Negative A code = 5799-2) Urobilinogen, UA 0.2 0.2-1.0 (test code = 26489-4) RBC, UA (test code = 34 See_Comment [Autom ated 02107-7) message] The system which generated this result [...] . Bacteria, UA (test Few code = 08593-2) Squam Epithel, UA See_Comment [Automate d (test code = 71323-0) messag e] The system which generated this result transmit bandar reference range : /HPF. The reference range was not used to interpret this result as normal/abnormal . Specimen Source (test code = 2795) ROBERT (test code = ROBERT) Shuttle Operator ID - [auto]Shuttle Operator ID - tech Lab Interpretation Abnormal (test code = 61454-6) [facility] Reflex to Culture 2022-05-18 16:12:56 Test Item Value Reference Range Interpretation Comments Color, UA (test code Yellow = 5778-6) Clarity, UA (test Hazy code = 5767-9) Specific [place], UA 1.045 1.001-1.035 H (test code = 5811-5) pH, UA (test code = 6.5 5.0-8.0 5803-2) Protein, UA (test 20 mg/dL Negative A code = 58936-4) Glucose, UA (test Negative Negative code = 365) Ketones, UA (test Negative Negative code = 2514-8) Bilirubin, UA (test Negative Negative code = 51283-1) Blood, UA (test code Moderate Negative A = 31947-4) Nitrite, UA (test Negative Negative code = 5802-4) Leukocytes, UA (test Large Negative A code = 5799-2) Urobilinogen, UA 0.2 0.2-1.0 (test code = 97591-2) RBC, UA (test code = 34 See_Comment [Autom ated 81717-4) message] The system which generated this result [...] . Bacteria, UA (test Few code = 51195-0) Squam Epithel, UA See_Comment [Automate d (test code = 03912-5) messag e] The system which generated this result transmit bandar reference range : /HPF. The reference range was not used to interpret this result as normal/abnormal . Specimen Source (test code = 2795) ROBERT (test code = ROBERT) Shuttle Operator ID - [auto]Shuttle Operator ID - tech Lab Interpretation Abnormal (test code = 62303-8) [facility] Reflex to Culture 2022-05-18 16:12:56 Test Item Value Reference Range Interpretation Comments Color, UA (test code Yellow = 5778-6) Clarity, UA (test Hazy code = 5767-9) Specific [place], UA 1.045 1.001-1.035 H (test code = 5811-5) pH, UA (test code = 6.5 5.0-8.0 5803-2) Protein, UA (test 20 mg/dL Negative A code = 59282-8) Glucose, UA (test Negative Negative code = 365) Ketones, UA (test Negative Negative code = 2514-8) Bilirubin, UA (test Negative Negative code = 01855-0) Blood, UA (test code Moderate Negative A = 52694-8) Nitrite, UA (test Negative Negative code = 5802-4) Leukocytes, UA (test Large Negative A code = 5799-2) Urobilinogen, UA 0.2 0.2-1.0 (test code = 44652-7) RBC, UA (test code = 34 See_Comment [Autom ated 82313-0) message] The system which generated this result [...] . Bacteria, UA (test Few code = 50004-9) Squam Epithel, UA See_Comment [Automate d (test code = 92255-9) messag e] The system which generated this result transmit bandar reference range : /HPF. The reference range was not used to interpret this result as normal/abnormal . Specimen Source (test code = 2795) ROBERT (test code = ROBERT) Shuttle Operator ID - [auto]Shuttle Operator ID - tech Lab Interpretation Abnormal (test code = 55140-0) [facility] Reflex to Culture 2022-05-18 16:12:56 Test Item Value Reference Range Interpretation Comments Color, UA (test code Yellow = 5778-6) Clarity, UA (test Hazy code = 5767-9) Specific [place], UA 1.045 1.001-1.035 H (test code = 5811-5) pH, UA (test code = 6.5 5.0-8.0 5803-2) Protein, UA (test 20 mg/dL Negative A code = 22215-1) Glucose, UA (test Negative Negative code = 365) Ketones, UA (test Negative Negative code = 2514-8) Bilirubin, UA (test Negative Negative code = 39926-6) Blood, UA (test code Moderate Negative A = 44072-3) Nitrite, UA (test Negative Negative code = 5802-4) Leukocytes, UA (test Large Negative A code = 5799-2) Urobilinogen, UA 0.2 0.2-1.0 (test code = 97871-3) RBC, UA (test code = 34 See_Comment [Autom ated 36780-6) message] The system which generated this result [...] . Bacteria, UA (test Few code = 68242-5) Squam Epithel, UA See_Comment [Automate d (test code = 84927-7) messag e] The system which generated this result transmit bandar reference range : /HPF. The reference range was not used to interpret this result as normal/abnormal . Specimen Source (test code = 2795) ROBERT (test code = ROBERT) Shuttle Operator ID - [auto]Shuttle Operator ID - tech Lab Interpretation Abnormal (test code = 39732-2) [facility] Culture 2022-05-18 16:12:56 Test Item Value Reference Range Interpretation Comments Color, UA (test code Yellow = 5778-6) Clarity, UA (test Hazy code = 5767-9) Specific [place], UA 1.045 1.001-1.035 H (test code = 5811-5) pH, UA (test code = 6.5 5.0-8.0 5803-2) Protein, UA (test 20 mg/dL Negative A code = 55996-7) Glucose, UA (test Negative Negative code = 365) Ketones, UA (test Negative Negative code = 2514-8) Bilirubin, UA (test Negative Negative code = 18668-9) Blood, UA (test code Moderate Negative A = 58299-5) Nitrite, UA (test Negative Negative code = 5802-4) Leukocytes, UA (test Large Negative A code = 5799-2) Urobilinogen, UA 0.2 0.2-1.0 (test code = 73899-1) RBC, UA (test code = 34 See_Comment [Autom ated 13220-9) message] The system which generated this result [...] . Bacteria, UA (test Few code = 40112-1) Squam Epithel, UA See_Comment [Automate d (test code = 40791-6) messag e] The system which generated this result transmit bandar reference range : /HPF. The reference range was not used to interpret this result as normal/abnormal . Specimen Source (test code = 2795) ROBERT (test code = ROBERT) Shuttle Operator ID - [auto]Shuttle Operator ID - tech Lab Interpretation Abnormal (test code = 68017-4) [facility] Culture 2022-05-18 16:12:56 Test Item Value Reference Range Interpretation Comments Color, UA (test code Yellow = 5778-6) Clarity, UA (test Hazy code = 5767-9) Specific [place], UA 1.045 1.001-1.035 H (test code = 5811-5) pH, UA (test code = 6.5 5.0-8.0 5803-2) Protein, UA (test 20 mg/dL Negative A code = 69180-7) Glucose, UA (test Negative Negative code = 365) Ketones, UA (test Negative Negative code = 2514-8) Bilirubin, UA (test Negative Negative code = 35971-5) Blood, UA (test code Moderate Negative A = 01882-8) Nitrite, UA (test Negative Negative code = 5802-4) Leukocytes, UA (test Large Negative A code = 5799-2) Urobilinogen, UA 0.2 0.2-1.0 (test code = 60603-8) RBC, UA (test code = 34 See_Comment [Autom ated 74546-1) message] The system which generated this result [...] . Bacteria, UA (test Few code = 44621-0) Squam Epithel, UA See_Comment [Automate d (test code = 06719-3) messag e] The system which generated this result transmit bandar reference range : /HPF. The reference range was not used to interpret this result as normal/abnormal . Specimen Source (test code = 2795) ROBERT (test code = ROBERT) Shuttle Operator ID - [auto]Shuttle Operator ID - tech Lab Interpretation Abnormal (test code = 99809-6) [facility] Culture 2022-05-18 16:12:56 Test Item Value Reference Range Interpretation Comments Color, UA (test code Yellow = 5778-6) Clarity, UA (test Hazy code = 5767-9) Specific [place], UA 1.045 1.001-1.035 H (test code = 5811-5) pH, UA (test code = 6.5 5.0-8.0 5803-2) Protein, UA (test 20 mg/dL Negative A code = 96241-9) Glucose, UA (test Negative Negative code = 365) Ketones, UA (test Negative Negative code = 2514-8) Bilirubin, UA (test Negative Negative code = 20646-0) Blood, UA (test code Moderate Negative A = 57932-9) Nitrite, UA (test Negative Negative code = 5802-4) Leukocytes, UA (test Large Negative A code = 5799-2) Urobilinogen, UA 0.2 0.2-1.0 (test code = 45509-0) RBC, UA (test code = 34 See_Comment [Autom ated 83546-8) message] The system which generated this result [...] . Bacteria, UA (test Few code = 64953-1) Squam Epithel, UA See_Comment [Automate d (test code = 59349-6) messag e] The system which generated this result transmit bandar reference range : /HPF. The reference range was not used to interpret this result as normal/abnormal . Specimen Source (test code = 2795) ROBERT (test code = ROBERT) Shuttle Operator ID - [auto]Shuttle Operator ID - tech Lab Interpretation Abnormal (test code = 66242-6) [facility] Culture 2022-05-18 16:12:56 Test Item Value Reference Range Interpretation Comments Color, UA (test code Yellow = 5778-6) Clarity, UA (test Hazy code = 5767-9) Specific [place], UA 1.045 1.001-1.035 H (test code = 5811-5) pH, UA (test code = 6.5 5.0-8.0 5803-2) Protein, UA (test 20 mg/dL Negative A code = 51502-8) Glucose, UA (test Negative Negative code = 365) Ketones, UA (test Negative Negative code = 2514-8) Bilirubin, UA (test Negative Negative code = 41379-6) Blood, UA (test code Moderate Negative A = 23419-4) Nitrite, UA (test Negative Negative code = 5802-4) Leukocytes, UA (test Large Negative A code = 5799-2) Urobilinogen, UA 0.2 0.2-1.0 (test code = 21006-5) RBC, UA (test code = 34 See_Comment [Autom ated 04657-4) message] The system which generated this result [...] . Bacteria, UA (test Few code = 29965-5) Squam Epithel, UA See_Comment [Automate d (test code = 20919-5) messag e] The system which generated this result transmit bandar reference range : /HPF. The reference range was not used to interpret this result as normal/abnormal . Specimen Source (test code = 2795) ROBERT (test code = ROBERT) Shuttle Operator ID - [auto]Shuttle Operator ID - tech Lab Interpretation Abnormal (test code = 58495-7) [facility] Culture 2022-05-18 16:12:56 Test Item Value Reference Range Interpretation Comments Color, UA (test code Yellow = 5778-6) Clarity, UA (test Hazy code = 5767-9) Specific [place], UA 1.045 1.001-1.035 H (test code = 5811-5) pH, UA (test code = 6.5 5.0-8.0 5803-2) Protein, UA (test 20 mg/dL Negative A code = 28757-7) Glucose, UA (test Negative Negative code = 365) Ketones, UA (test Negative Negative code = 2514-8) Bilirubin, UA (test Negative Negative code = 93967-4) Blood, UA (test code Moderate Negative A = 80976-3) Nitrite, UA (test Negative Negative code = 5802-4) Leukocytes, UA (test Large Negative A code = 5799-2) Urobilinogen, UA 0.2 0.2-1.0 (test code = 97556-8) RBC, UA (test code = 34 See_Comment [Autom ated 03179-7) message] The system which generated this result [...] . Bacteria, UA (test Few code = 90189-1) Squam Epithel, UA See_Comment [Automate d (test code = 16864-0) messag e] The system which generated this result transmit bandar reference range : /HPF. The reference range was not used to interpret this result as normal/abnormal . Specimen Source (test code = 2795) ROBERT (test code = ROBERT) Shuttle Operator ID - [auto]Shuttle Operator ID - tech Lab Interpretation Abnormal (test code = 56188-3) [facility] Culture 2022-05-18 16:12:56 Test Item Value Reference Range Interpretation Comments Color, UA (test code Yellow = 5778-6) Clarity, UA (test Hazy code = 5767-9) Specific [place], UA 1.045 1.001-1.035 H (test code = 5811-5) pH, UA (test code = 6.5 5.0-8.0 5803-2) Protein, UA (test 20 mg/dL Negative A code = 15167-2) Glucose, UA (test Negative Negative code = 365) Ketones, UA (test Negative Negative code = 2514-8) Bilirubin, UA (test Negative Negative code = 89695-2) Blood, UA (test code Moderate Negative A = 97203-2) Nitrite, UA (test Negative Negative code = 5802-4) Leukocytes, UA (test Large Negative A code = 5799-2) Urobilinogen, UA 0.2 0.2-1.0 (test code = 30731-7) RBC, UA (test code = 34 See_Comment [Autom ated 92318-5) message] The system which generated this result [...] . Bacteria, UA (test Few code = 82663-9) Squam Epithel, UA See_Comment [Automate d (test code = 14252-4) messag e] The system which generated this result transmit bandar reference range : /HPF. The reference range was not used to interpret this result as normal/abnormal . Specimen Source (test code = 2795) ROBERT (test code = ROBERT) Shuttle Operator ID - [auto]Shuttle Operator ID - tech Lab Interpretation Abnormal (test code = 62159-6) [facility] Reflex [facility] Culture 2022-05-18 16:12:56 Test Item Value Reference Range Interpretation Comments Color, UA (test code Yellow = 5778-6) Clarity, UA (test Hazy code = 5767-9) Specific [place], UA 1.045 1.001-1.035 H (test code = 5811-5) pH, UA (test code = 6.5 5.0-8.0 5803-2) Protein, UA (test 20 mg/dL Negative A code = 73484-9) Glucose, UA (test Negative Negative code = 365) Ketones, UA (test Negative Negative code = 2514-8) Bilirubin, UA (test Negative Negative code = 73418-6) Blood, UA (test code Moderate Negative A = 42993-5) Nitrite, UA (test Negative Negative code = 5802-4) Leukocytes, UA (test Large Negative A code = 5799-2) Urobilinogen, UA 0.2 0.2-1.0 (test code = 94202-3) RBC, UA (test code = 34 See_Comment [Autom ated 01201-5) message] The system which generated this result [...] . Bacteria, UA (test Few code = 24057-4) Squam Epithel, UA See_Comment [Automate d (test code = 78454-3) messag e] The system which generated this result transmit bandar reference range : /HPF. The reference range was not used to interpret this result as normal/abnormal . Specimen Source (test code = 2795) ROBERT (test code = ROBERT) Shuttle Operator ID - [auto]Shuttle Operator ID - tech Lab Interpretation Abnormal (test code = 45585-7) [facility] [id number] 16:12:56 Test Item Value Reference Range Interpretation [...] = 516) SOURCE(BEAKER) (test code = 2795) Shuttle Operator ID - [auto]Shuttle Operator ID - techPROTHROMBIN TIME/[id number] 16:02:01 Test Item Value Reference Range Interpretation Comments PROTIME (BEAKER) (test code = 25.8 seconds 11.9-14.2 H 759) INR (BEAKER) (test code = 370) 2.54 <=5.90 RECOMMENDED COUMADIN/WARFARIN INR THERAPY RANGESSTANDARD DOSE: 2.0 - 3.0 Includes: PROPHYLAXIS for venous thrombosis, systemic embolization; TREATMENT for venous thrombosis and/or pulmonary embolus.HIGH RISK: Target INR is 2.5-3.5 for patients with mechanical heart valves.CALCIUM, [id number] 13:31:38 Test Item Value Reference Range Interpretation [...] 0-0 (BEAKER) (test code = 413) POCT-GLUCOSE [id number] 13:07:25 Test Item Value Reference Range Interpretation Comments POC-GLUCOSE METER 81 mg/dL 70-110 : TESTED A T [facility] 6720 (BEAKER) (test code = JOSELITO Joan [facility], 1538) [address]: Shuttle Operator/Techni valarie ID = [id number] for Scarlet Maravilla B-TYPE NATRIURETIC FACTOR (BNP)2022-05-18 11:38:06 Test Item Value Reference Range Interpretation Comments B-TYPE NATRIURETIC PEPTIDE (BEAKER) 97 pg/mL 0-100 (test code = 700) Shuttle Operator ID - FANTASMA ALZRSJPUHJB9311-88-92 11:34:39 Test Item Value Reference Range Interpretation Comments FIBRINOGEN LEVEL (BEAKER) (test 440 mg/dl 225-434 H code = 658) [id number] 11:32:28 Test Item Value Reference Range Interpretation Comments LIPASE (BEAKER) (test code = 749) 13 U/L 8-78 Shuttle Operator ID - FANTASMA BCOMPREHENSIVE METABOLIC BIBTB2200-22-65 11:32:27 Test Item Value Reference Range Interpretation [...] not appl icable for dialysis patien ts Shuttle Operator ID - FANTASMA MOLIWJJTOA4994-40-67 11:32:27 Test Item Value Reference Range Interpretation Comments MAGNESIUM (BEAKER) (test code = 1.7 mg/dL 1.6-2.6 627) Shuttle Operator ID - FANTASMA LRWNCOVDNLT5135-97-76 11:32:27 Test Item Value Reference Range Interpretation Comments PHOSPHORUS (BEAKER) (test code = 2.9 mg/dL 2.3-4.7 604) Shuttle Operator ID - FANTASMA BPT/UGZP3766-58-51 11:21:21 Test Item Value Reference Range Interpretation [...] for patients with mechanical heart valves.LACTIC ACID, [id number] 11:20:59 Test Item Value Reference Range Interpretation Comments LACTATE BLOOD VENOUS (2) (BEAKER) 1.40 mmol/L 0.50-2.20 (test code = 2872) Shuttle Operator ID - FANTASMA B Notes Date/Time Note Provider Source 2022-12-20 2674-99-14L75:46:19Formatting of Eliane Rachel [facility] 08:46:19 this note might be different from Bar BROWN the original.Notified patient per Dr Dan to repeat INR in 2 weeks, patient verbal understanding. 92222-8Sfnpacesp encounter ZyksXW2112-31-91H54:46:50Telephone encounter NoteTXT1.2.840.110308.1.13.104.2.7.2 .754723|[id number] for patient isqr19189-8LrugLU889252868Yitqyahrp D Garcia MA[id number] PCREKTLOITSMVZJNOCIJNA5510-82-37D81: 46:501.2.840.029148.1.72.3.15|1.2.84 0.188048.1.13.104.2.7.2.727879_18933 24778 2022-12-20 9310-24-94I51:22:46Formatting of [facility] 08:22:46 this note might be different from the original.Refill request for warfarin received. Refill sent to pharmacy of choice. Patient is compliant as per [facility] Cardiology Protocol. 84027-9Zluhcngnh encounter IcflDF8339-34-38L63:22:46Telephone encounter NoteTXT1.2.840.207472.1.13.104.2.7.2 .733792|4312411049MKJjiexqzeo for patient cpfj13360-9UmtxWZPKEFTZOL[address] [place], [place] [id number] LDQOFLVRSWVQHQXUUEMWWC1347-90-85P42: 22:461.2.840.592702.1.72.3.15|1.2.84 0.232252.1.13.104.2.7.2.727879_18933 24116 2022-12-19 2904-02-42A02:36:13Formatting of [facility] 14:36:13 this note might be different from the original.2 wks 63777-2Xcocwhyln encounter ZdwqVV4829-62-66Y08:36:18Telephone encounter NoteTXT1.2.840.029280.1.13.104.2.7.2 .598498|0506259962FEUmxtwyocq for patient qmso18655-9SnwfHKFXPTVKNR[id number] FFNSKMARCWBRZYQRCNGKQF3305-99-45K41: 36:181.2.840.346950.1.72.3.15|1.2.84 0.115293.1.13.104.2.7.2.727879_18925 41383 2022-12-19 0908-47-47M75:07:56Formatting of Sapna Klein RN [facility] 14:07:56 this note might be different from the original.Dr Dan's response provided, Ms Price stated that she felt like 4 weeks to recheck INR seemed to be to long of a time to wait for to take the recheck Routed patient response to above concernAlso asked for an appointment with EP. Routed to [facility] for scheduling with Dr Koroma 06100-7Yghgkecki encounter WlffVY8224-79-97R68:12:25Telephone encounter NoteTXT1.2.840.046396.1.13.104.2.7.2 .244004|[id number] for patient pdxj65404-2WfqkKD596970789Bzwxd A Roller RN[id number] QZTVAIZECRYGHOIDVLDZHH7528-00-42K97: 12:251.2.840.712113.1.72.3.15|1.2.84 0.522494.1.13.104.2.7.2.727879_18924 23340 2022-12-18 9921-31-02S70:32:54Formatting of [facility] 17:32:54 this note might be different from the original.Ok, keep current dosage 68125-9Ntwhzwtzp encounter GcbeAD8446-88-16H32:33:06Telephone encounter NoteTXT1.2.840.694659.1.13.104.2.7.2 .708017|5981257628NRNyeubyxgc for patient ludt63238-3LzbgNFLCPFVELN[id number] EQTPJFFVBFMBVPIEGGOABX8147-95-18F88: 33:061.2.840.562112.1.72.3.15|1.2.84 0.607698.1.13.104.2.7.2.727879_18914 82892 2022-12-18 3783-49-54Q76:41:46Formatting of Viviane Yang RN [facility] 16:41:46 this note might be different from the original.Spoke with [facility]. Patient verified that she has been taking warfarin 2 mg on 3 days and 1 mg on 4 days. She verbalized understanding: patient to continue same and recheck patient's INR in 4 weeks. No further questions. 67088-9Jmdnfqnbv encounter CgxgFR7224-13-52U72:44:43Telephone encounter NoteTXT1.2.840.618137.1.13.104.2.7.2 .033122|7541129839FWOdgqzvjem for patient jakh98749-5RluyOF210739668Qveq Sheavly [id number] RYKFSPNHKBBUUSYBYIBLWF4810-24-10F30: 44:431.2.840.755016.1.72.3.15|1.2.84 0.053108.1.13.104.2.7.2.727879_18914 47433 2022-12-18 4635-09-39B19:31:49Formatting of Fabiola Dinero [facility] 15:31:49 this note might be different from the original.Emanuel Price is a 67 year old female Stephenie with [facility] is calling to request instructions for INR paperwork.Please assist [phone] 20722-2Rtepivoxk encounter EakoRG9103-74-64F75:33:09Telephone encounter NoteTXT1.2.840.319825.1.13.104.2.7.2 .895970|3873889353VJRvywcmyel for patient news92743-0DxbfNP220395504Kbkb Ricci [id number] AZIMOZMWNEFKBCSMLUYYER6259-59-66Z10: 33:091.2.840.137287.1.72.3.15|1.2.84 0.968383.1.13.104.2.7.2.727879_18913 28050 2022-12-18 9604-44-22Z68:03:15Formatting of [facility] 15:03:15 this note might be different from the original.Please see office visit on December for instructions. Please verify the dosage. I found some discrepancy. 26315-7Ydyvjqkzb encounter PicmYW8209-66-74L91:03:49Telephone encounter NoteTXT1.2.840.878722.1.13.104.2.7.2 .872677|4095740584JJRmwjxpoul for patient gukl58683-5OneyIREGARMJYA[id number] UUBCDQKALBAASEQLBSEKCF5524-04-55S23: 03:491.2.840.529047.1.72.3.15|1.2.84 0.793562.1.13.104.2.7.2.727879_18913 93683 2022-12-18 0879-85-78D06:18:23Formatting of Eliane Rachel [facility] 14:18:23 this note might be different from Bar BROWN the original.INR results received via fax from [facility] and placed in Dr Dan's folder.INR is 2.8 (12/18/2022)Current dose of Warfarin:Warfarin 2 mg - 3 times a week and 1 mg 4 times a week.Labs scanned into chart. 50096-7Ijivkudmz encounter CcnzFF5408-78-09A76:20:53Telephone encounter NoteTXT1.2.840.129053.1.13.104.2.7.2 .740694|9760314769BZVzlohajap for patient omtp03999-1OzoqCU031438355Ahtdaqbni D Garcia [id number] LGGKSOVIKCJLHAWTMSCECL6403-23-89X72: 20:531.2.840.098843.1.72.3.15|1.2.84 0.498629.1.13.104.2.7.2.727879_18912 72869 2022-12-06 8889-55-37U63:42:27Formatting of Eliane Rachel [facility] 11:42:27 this note might be different from Bar BROWN the original.Notified Tinoe with [facility] Care per Dr Dan:INR is 2.6Resume current dose(Warfarin 2mg 3 times a week and 1 mg 4 times a week)Repeat INR in 2 weeksVerbal understanding and stated she would notify patient. 41924-4Bhpxrfnic encounter UmqrDE9611-67-97L15:45:08Telephone encounter NoteTXT1.2.840.913547.1.13.104.2.7.2 .833198|8314173684KJNqqdjbale for patient gqci96580-0QvfsUA792695436Lfontngfj D Garcia [id number] LCTQBYATTBLPQBQJDJADPU5936-22-29Q39: 45:081.2.840.755751.1.72.3.15|1.2.84 0.290498.1.13.104.2.7.2.727879_18824 71441 2022-12-06 6912-79-12I05:07:04Formatting of Lula Patel [facility] 10:07:04 this note might be different from the original.Tobias with [facility] is requesting a call back in regards to the INR results. Please advise. 39014-7Carwenuva encounter IisfNA4352-84-40G30:07:38Telephone encounter NoteTXT1.2.840.406588.1.13.104.2.7.2 .575958|0995064052EQEypldvopp for patient ulgt75325-1OjmiFS779251461Xbmzu[id number] VJNNVSIRGMGIXZESVROKNW9827-39-36M85: 07:381.2.840.865335.1.72.3.15|1.2.84 0.704307.1.13.104.2.7.2.727879_18822 20231 2022-12-05 6847-80-31R18:18:29Formatting of Ronal [facility] 10:18:29 this note might be different from the original.Lab results received from [facility]. Placed in provider's box. 15593-6Spjaefliz encounter DvubED9750-20-17G88:18:52Telephone encounter NoteTXT1.2.840.400333.1.13.104.2.7.2 .295747|4025366374PHKlysjmmnl for patient mtij19806-4FqyvLE588778299Jzqsdyws[id number] FCQJPFOHVXQDLGHREVNSGY2848-75-77L88: 18:521.2.840.471277.1.72.3.15|1.2.84 0.309484.1.13.104.2.7.2.727879_18812 30791 2022-12-05 2344-80-77N81:55:21Formatting of Ronal Elaine [facility] 08:55:21 this note might be different from the original.Forms received from [facility]. Placed in provider's box. 93339-5Gsuahnski encounter EmtlFF0287-39-07Y63:56:30Telephone encounter NoteTXT1.2.840.184703.1.13.104.2.7.2 .764169|6786595874BEEbqlkaext for patient fnsf38307-5BnquRN304221926Jzbaawzq [address]vdG[id number] JBJROMVRBAEDQZNHYTZSHK1562-97-08C66: 56:301.2.840.401466.1.72.3.15|1.2.84 0.617710.1.13.104.2.7.2.727879_18810 88081 2022-11-30 3767-31-28F59:51:03Formatting of Sapna Klein RN [facility] 15:51:03 this note might be different from the original.Spoke with [facility], continue current dosage Warfarin 2mg 3 days a week and 1mg 4 days a weekRepeat INR in 1weeks,Verbalized understanding 90359-4Bnnzqeram encounter CfayYT2936-39-48L82:17:40Telephone encounter NoteTXT1.2.840.499247.1.13.104.2.7.2 .641105|7531855992RQNsliioytv for patient gblu07045-4HcanOU208741393Clgmj A Roller [address]G[id number] HOUDKBWVSRKKTECAKZRKBS9842-46-93O16: 17:401.2.840.725759.1.72.3.15|1.2.84 0.567343.1.13.104.2.7.2.727879_18781 78207 2022-11-30 8658-38-33K90:47:12Formatting of Lorena Aggarwal [facility] 15:47:12 this note might be different from MA the original.Called patient for results patient verbalized understanding with no further questions.Reason for anticoagulation with Coumadin: PAF/AVR Home dose of Coumadin: Currently on Coumadin 2 mg 3 days a week and 1 mg 4 days a week.Goal INR 2.5-3.5. INR monitoring: Via [facility] labINR is 3.5--11/30/2022 Reduce warfarin to 2 mg 2 days a week Saturday and , and 1 mg 5 days a week. Patient to repeat INR in 1 week.Results informed via staff. 70088-5Yqakijznw encounter TxadOL3410-72-40V35:48:40Telephone encounter NoteTXT1.2.840.520964.1.13.104.2.7.2 .043145|8261122993AXExwdzefyy for patient delt76259-3AzddYI491073859Oasinti Castillo MA[address] StreetQyfnPhuykirdbHdjpecmjtHIPH9379177721 RXVJALDKOBTBTZYJPFMFWD4124-35-29D79: 48:401.2.840.590092.1.72.3.15|1.2.84 0.782351.1.13.104.2.7.2.727879_18780 13204 2022-11-30 2532-99-54J20:44:53Formatting of [facility] 15:44:53 this note might be different from the original.Please see office visit on November 30 for instructions 24192-0Vgygztmdk encounter RvxvXP1609-91-31M98:45:06Telephone encounter NoteTXT1.2.840.872947.1.13.104.2.7.2 .327092|8286234431KGIhzdpfevi for patient epmd76306-2TpimHHIHYMXDLQ[id number] DHIGDJKFBERZKIJBCLFMFQ5131-22-68E33: 45:061.2.840.469148.1.72.3.15|1.2.84 0.266434.1.13.104.2.7.2.727879_18780 03323 2022-11-30 5709-93-03H72:28:01Formatting of Sapna Klein RN [facility] 14:28:01 this note might be different from the original.INR 3.5Current dosage 2mg x 3 pwys4mk x [address] Dan for advice 99315-1Fsmpbjbcg encounter NevlSN9011-24-50W29:29:50Telephone encounter NoteTXT1.2.840.306137.1.13.104.2.7.2 .661731|[id number] for patient [id number] A Roller RN[address]I[id number] NOJQUXJQXJLCRLZJBYEIZX9990-10-88N23: 29:501.2.840.768554.1.72.3.15|1.2.84 0.530220.1.13.104.2.7.2.727879_18780 [id number] 2022-11-30 7950-03-14F79:05:23Formatting of Susan Seymour [facility] 14:05:23 this note might be different from Malvin Johansen the original.Emanuel Price is a 67 year old femaleNurse calling stating fallon jc IRN was elevated at 3.5 and they would like to have new orders and a call back from nurse to advise. Jngbx you 52872-6Smlfvsifs encounter UuuoKC3077-65-69A24:07:11Telephone encounter NoteTXT1.2.840.579143.1.13.104.2.7.2 .975374|[id number] for patient [id number] Tsuruta Moreno [address] [id number] PFKUVDKNTSTWMIQACIYCPQ2709-18-25P77: 07:111.2.840.372065.1.72.3.15|1.2.84 0.409242.1.13.104.2.7.2.727879_18779 [id number] 2022-11-26 5528-21-86X08:19:26Formatting of Viviane Yang RN [facility] 16:19:26 this note might be different from the original.[facility] called asking when they need to recheck patient's INR.Discussed with Dr. Dan who recommended that patient's INR be rechecked in 5 days. Patient previously on 2 mg 4 days and 1 mg on 3 days of the week prior to hospitalization. She was told at discharge to start warfarin at 1 mg daily. Patient resumed warfarin [address] Dan recommended that patient decrease dose from previous and start taking 2 mg on 3 days and 1 mg on 4 days. Patient notified, she verbalized understanding via teach back. 76027-4Edusgajnu encounter GxdeBJ8852-61-34Z40:24:19Telephone encounter NoteTXT1.2.840.520810.1.13.104.2.7.2 .946993|[id number] for patient [id number] Celia [address]ARTLETT[id number] ZMVNCWWGMZKZEDMPLKKJMJ0827-66-32E53: 24:191.2.840.220519.1.72.3.15|1.2.84 0.330938.1.13.104.2.7.2.727879_18739 [id number] 2022-11-26 8807-59-32J63:45:38Formatting of [facility] 08:45:38 this note might be different from the original.Ok thanks 24576-8Atpjfdwta encounter MsljQK5267-46-31L89:45:48Telephone encounter NoteTXT1.2.840.111880.1.13.104.2.7.2 .838746|[id number] for patient irhi41366-3XqlfWWFOXWSQFJ[id number] BPLMIWAHFMHZERAYONRJHF3772-66-54I98: 45:481.2.840.996273.1.72.3.15|1.2.84 0.844299.1.13.104.2.7.2.727879_18733 [id number] 2022-11-26 5773-11-11E39:14:56Formatting of [facility] 08:14:56 this note might be different from the original.Please see other encounter 11/25/22. 59472-7Yysrhezbo encounter OkbfLM7931-21-70E51:15:25Telephone encounter NoteTXT1.2.840.034781.1.13.104.2.7.2 .739064|[id number] for patient ummi08689-9JxxdHCVACJYROU[id number] GIECLWRAPKKXTSDFABKQTA4875-73-69M80: 15:251.2.840.614250.1.72.3.15|1.2.84 0.865923.1.13.104.2.7.2.727879_18733 06932 2022-11-26 8993-25-55N40:10:36Formatting of Viviane Yang RN [facility] 08:10:36 this note might be different from the original.Spoke with [facility] health RN Sheela and with [place]. [place] [address] was 1.5Patient states she restarted her warfarin on 11/25/22 and too 2 mg last night. Her dose prior to hospital admission was 1 mg on 3 days and 2 mg on 4 days of the week. [facility] states they will be rechecking patient's INR temporarily until it stabilizes. [facility] phone # is . Routing to Dr. Dan. 74904-5Dmusryefr encounter IlvbOJ7144-03-70H98:14:40Telephone encounter NoteTXT1.2.840.119391.1.13.104.2.7.2 .956195|[id number] for patient [id number] Sheavly RNUT[id number] HXAYKRNPKUMECMHDFNEYBA1934-53-87V80: 14:401.2.840.005907.1.72.3.15|1.2.84 0.076921.1.13.104.2.7.2.727879_18733 [id number] 2022-11-25 5270-83-37S65:58:57Formatting of Birgit [facility] 09:58:57 this note might be different from the original.Emanuel Price is a 67 year old female Nurse is calling to provide Lab work results to the Dr.Please call her 92076-7Axunarebj encounter DcjxFN6168-25-55N37:01:23Telephone encounter NoteTXT1.2.840.511489.1.13.104.2.7.2 .976305|[id number] for patient [id number] [id number] QPQOCOCSGBRQCUBGBHJFBD0587-57-88F17: 01:231.2.840.120437.1.72.3.15|1.2.84 0.087048.1.13.104.2.7.2.727879_18731 [id number] 2022-11-24 7137-08-51V43:09:08Formatting of [facility] 23:09:08 this note might be different from the original.If INR was 5.43 on November 22, she should not start warfarin on November 24. She can start warfarin once INR is below 3. Please find out if patient already started warfarin. INR on November 26. 22876-5Gijxwqfft encounter VxbiPX3747-86-74M70:10:41Telephone encounter NoteTXT1.2.840.867907.1.13.104.2.7.2 .065155|[id number] for patient rnny91465-3AnqyZNDTHDPIPM[id number] QGXIVDDYJQMNVAMNOCRZCQ8465-70-45O26: 10:411.2.840.071286.1.72.3.15|1.2.84 0.864199.1.13.104.2.7.2.727879_18730 40590 2022-11-23 1147-48-86M86:47:04Formatting of [facility] 09:47:04 this note might be different from the original.[facility] records received placed in Dr. Dan's folder [id number] encounter YqptXP0277-89-42P43:47:18Telephone encounter NoteTXT1.2.840.262119.1.13.104.2.7.2 .426726|[id number] for patient hoqi68785-3GarzDWCDVWGINC[id number] PZKNLJVUNAOJPSIAYSSRTI2037-08-27A28: 47:181.2.840.201415.1.72.3.15|1.2.84 0.808351.1.13.104.2.7.2.727879_18721 79601 2022-11-22 7025-78-09U56:03:35Formatting of [facility] 17:03:35 this note might be different from the original.Home health nurse calling to notify that patient was just discharged from [facility] today. She was discharged with orders for home health to do her INR checks. She states they are needing an order for INR checks. They were instructed to repeat her INR in 72 hours from today. states patient's most recent INR was 5.43.Patient currently holding warfarin. She was instructed in discharge paper work to resume warfarin at 1 mg daily starting on 11/24/22. Orders for INR checks can be faxed to Attn: [phone] is going to fax [facility] records to for Dr. Dan to review. Orders for INR checks faxed to [facility] so that they can perform INR checks on patient. Request that results be faxed to Dr. Dan for review. 04314-8Jgmfujrft encounter OqhfRJ0383-97-05P79:26:42Telephone encounter NoteTXT1.2.840.168070.1.13.104.2.7.2 .287816|[id number] for patient hidt14616-2RqvgEBRPCONCHY[id number] NZOWPRTMKVNFIQYLNBMRRB8530-61-55J79: 26:421.2.840.479840.1.72.3.15|1.2.84 0.530037.1.13.104.2.7.2.727879_18716 98717 2022-11-22 8216-08-72R37:57:55Formatting of Noa Ricardo [facility] 16:57:55 this note might be different from the original.Emanuel Price is a 67 year old female Maryuri with [facility] HH is calling requesting to speak with nurse regarding Coumadin.She states that patient was admitted and released from [facility] a couple of days ago. PTNR 2 - 3 Thanks! 27405-0Ossqacbam encounter OstfNS4734-92-96A26:00:31Telephone encounter NoteTXT1.2.840.237246.1.13.104.2.7.2 .060771|[id number] for patient [id number] A [address] Mo[id number] LGWOZGMFUUXPFAXMIBHMGP3234-20-98R22: 00:311.2.840.113569.1.72.3.15|1.2.84 0.136326.1.13.104.2.7.2.727879_18716 11308 2022-11-12 4145-19-00J58:38:22Formatting of Lorena Aggarwal [facility] 13:38:22 this note might be different from [place] the original.Received office notes from [facility] will put on Dr. Sy packer for review. 12935-9Uyaqcweks encounter JegpRL6438-60-12K73:42:27Telephone encounter NoteTXT1.2.840.988488.1.13.104.2.7.2 .705421|[id number] for patient wjyz34871-3LylrCD381016883Tlhjalz Castillo [address] Gp[id number] XPSIBNNXDXEIBSZHVMBIPV5091-28-06D92: 42:271.2.840.945539.1.72.3.15|1.2.84 0.405874.1.13.104.2.7.2.727879_18627 76782"
[2023-03-11 15:51] VITALS: BMI 22.2
[2023-03-11] MEDS ORDERED: ACETAMINOPHEN 500 MG TAB PO PRN (16:28)
[2023-03-11] MEDS ORDERED: ONDANSETRON 4 MG (ODT) TAB PO PRN (16:29)
[2023-03-11] MEDS ORDERED: HYDROCODONE/APAP 7.5/325 MG TAB PO PRN (16:34)
[2023-03-11] MEDS ORDERED: ZOLPIDEM TARTRATE 10 MG TABLET PO PRN (16:40)
[2023-03-11] MEDS ORDERED: DOCUSATE NA/SENNA CONC 1 TAB PO PRN (16:52)
[2023-03-11] MEDS: PANTOPRAZOLE 40MG TABLET PO SCH (16:58)
[2023-03-11] MEDS: WARFARIN SODIUM 2 MG TAB PO SCH (16:58)
[2023-03-11] MEDS ORDERED: METOPROLOL TAR 25 MG TAB PO SCH (20:00)
[2023-03-11] MEDS: DOCUSATE NA 100 MG CAP PO SCH (20:26)
[2023-03-11] MEDS: GABAPENTIN 300 MG CAP PO SCH (20:26)
[2023-03-11] MEDS: FERROUS SULFATE 325 MG TAB PO SCH (20:26)
[2023-03-11] MEDS: ENOXAPARIN 60 MG/0.6 ML SQ SCH (20:27)
[2023-03-11] MEDS: OXYCODONE HCL 5 MG TAB PO SCH (20:27)
[2023-03-11] MEDS: ZOLPIDEM TARTRATE 5 MG TABLET PO SCH (20:27)
[2023-03-11] MEDS: ATORVASTATIN 80 MG TAB PO SCH (20:27)
[2023-03-11] MEDS: ENSURE ENLIVE 237 ML CAN PO SCH (20:28)
[2023-03-12] MEDS: PANTOPRAZOLE 40MG TABLET PO SCH ×2 (07:27→17:01)
[2023-03-12] MEDS: ENSURE ENLIVE 237 ML CAN PO SCH ×2 (07:28→19:36)
[2023-03-12] MEDS: ENOXAPARIN 60 MG/0.6 ML SQ SCH ×2 (07:28→19:36)
[2023-03-12] MEDS: GABAPENTIN 300 MG CAP PO SCH ×3 (07:28→19:34)
[2023-03-12] MEDS: EZETIMIBE 10 MG TAB PO SCH (07:28)
[2023-03-12] MEDS: FERROUS SULFATE 325 MG TAB PO SCH ×3 (07:29→19:35)
[2023-03-12] MEDS: DOCUSATE NA 100 MG CAP PO SCH ×2 (07:29→19:34)
[2023-03-12] MEDS: AMIODARONE HCL 200 MG TAB PO SCH (07:29)
[2023-03-12] MEDS: ASPIRIN EC 81 MG TAB PO SCH (07:29)
[2023-03-12] MEDS: FUROSEMIDE 20 MG TABLET PO SCH (07:30)
[2023-03-12 08:31] LABS: Absolute Lymphocytes (CBC) 0.9 K/uL (0.7-4.9); Lymphocytes % 11.4 % (15.3-44.8); MCV 95.8 fL (80-100); MPV 7.8 fL (7.6-11.3); Platelets 430 thou/uL (152-406); Protime INR 2.19; RBC Red Blood Cell Count 2.82 M/uL (3.86-4.86)
[2023-03-12] MEDS: OXYCODONE HCL 5 MG TAB PO SCH ×3 (08:38→19:34)
[2023-03-12] MEDS: METOPROLOL TAR 25 MG TAB PO SCH ×2 (08:40→19:36)
[2023-03-12 09:22] LABS: Anisocytosis 1+; Blood Morphology Comment NOTED (NOT SEEN); Macrocytosis 1+; Platelet Estimate ADEQ; Polychromasia SLIGHT; White Blood Cell Scan OK (OK)
[2023-03-12 09:40] LABS: Albumin 2.2 g/dL (3.4-5.0); Potassium 3.7 mEq/L (3.5-5.1); Prealbumin 13.8 mg/dL (20-40)
[2023-03-12 10:08] LABS: Urine Bacteria None Seen /HPF (<20); Urine RBC <5 /HPF (None Seen)
[2023-03-12 10:08] LABS: Urine Bilirubin Negative (Negative); Urine Blood Trace-intact (Negative); Urine Clarity Clear (Clear); Urine Color Yellow (Yellow); Urine Glucose Negative (Negative); Urine Protein Negative (Negative); Urine Urobilinogen 0.2 mg/dL (0.2-1.0); Urine pH 6.5 (5.0-7.0)
[2023-03-12 10:09] LABS: Urine Clarity Clear (Clear); Urine Color Colorless (Yellow)
[2023-03-12 10:10] LABS: Urine Bilirubin NEGATIVE (Negative); Urine Blood Trace-intact (Negative); Urine Glucose Negative (Negative); Urine Protein Negative (Negative); Urine Urobilinogen 0.2 (Normal); Urine pH 6.5 (5.0-7.0)
[2023-03-12] MEDS: WARFARIN SODIUM 2 MG TAB PO SCH (17:01)
--- NOTE | 2023-03-12 17:10 | HP ---
Date of Admission: 03/11/2023 Time Of Service: 1 p.m. Chief Complaint: "I had hip surgery and plate in the hip and had a lot of pain." History Of Present Illness: Ms. Saavedra is a 67-year-old patient with history of aortic valve repair, on long-term coagulation, who had total hip arthroplasty over a week ago and was discharged on Couma din with hemoglobin down to 8. She developed worsening pain in the hip and was evaluated by imaging and found to have a large laterally positioned hematoma in the right hip deep to the skin scott matteo suring 15 x 7.5 x 5 cm. She had no outward evidence of blood at the time of evaluation. Her Coumadi n and Lovenox were held. She was seen by the Cardiology Service, Orthopedic Service, and evaluated b y Physical Therapy and determined at that point, she would require very close observation and managem ent. Orthopedic Surgery did not require intervention. She did have significant drop in hemoglobin r equiring 3 units of packed red blood cells. As a result of her complicated course and requiring kathryn gement of hemoglobin and hematocrit, to determine if she needs more blood and if she would need acute intervention. It is determined that she would be unsafe if she was discharged home or to a facility such as senior care. However, it is recognized that she requires aggressive physical therapy to begin to return to her prior level of functioning, where she was independent and driving without res triction, mobilizing as well. As a result, it was determined that she is a good candidate for inpati ent rehabilitation to receive physical and occupational therapy 24 hours a day, senior care and marie michel physician evaluation and social services analyst management for her to reintegrate back into her home si [facility]. Past Medical History: Atrial fibrillation, chronic arthritis, thoracic aortic aneurysm, aortic valve repair, congestive heart failure, hypertension, gastroesophageal reflux disease, dyslipidemia, anemi a. Allergies: NO KNOWN DRUG ALLERGIES. Imaging Studies: Lower extremity CT scan on the showed a large laterally positioned hematoma in the right thigh deep to skin scott measuring 15 x 7.5 x 5 cm. No active bleeding was visualized. X-ray of the femur showed right total hip arthroplasty. Lateral skin scott noted. Mild soft tiss ue gas present and chest x-ray showed COPD pattern. Medications: Tylenol 500 mg every 6 hours as needed, Fosamax 70 mg every 7 day, amiodarone 200 mg da margo, aspirin 81 mg daily, Lipitor 80 mg at bedtime, Colace 100 mg twice daily, Lovenox 60 mg every 12 hours, Zetia 10 mg daily, ferrous sulfate 325 mg daily, Lasix 20 mg daily, gabapentin 300 mg 3 times daily, [place] 7.5, fish oil 500 mg every 6 hours as needed, Lopressor 25 mg twice daily, Ensure Enliv e 237 mL twice daily, Zofran 4 mg every 6 hours as needed, oxycodone 10 mg 3 times daily, Protonix 40 mg daily, Senokot-S 2 at bedtime, and she is now back on Coumadin 2 mg daily and Ambien 10 mg at bed time. Family History: Noncontributory. Social History: The patient lives with family. Single family home. No steps. Has walk-in shower a nd tub shower. Laboratory Studies: White blood cell count 7.8, hemoglobin 8.8, platelets 430. INR 2.19. Sodium 13 7, potassium 3.7, chloride 107, carbon dioxide 27, BUN 70, creatinine 0.8, glucose 94, calcium 8.5, m agnesium 2.0, albumin 2.2, prealbumin 13.8. Urinalysis is unremarkable except a trace of blood, all otherwise negative, wherein a smear test in peripheral smear is okay. Review of Systems: She denies aside from the right hip where there is some pain. There are no fevers or chills. No sig nificant myalgias except at the hip surgical site. Mild arthralgias in the right hip. Other joints are okay. No nausea, vomiting. No psychiatric issues. No genitourinary issues, although she may alford ve a Resendiz catheter in place and removed. Physical Examination: Vital Signs: Blood pressure 131/61, pulse of 55, respiratory rate 16, temperature 97.2, ox saturatio n 93%, weight 125 pounds, height 5 feet 3 inches. General: Ms. Saavedra is resting comfortably in bed. HEENT: She is normocephalic, atraumatic. Sclerae anicteric. Oropharynx is pink and moist. Neck: Supple. Chest: Clear. Heart: Regular. Extremities: Mild edema in the right lower extremity from her hip surgery. Otherwise, no clubbing, cyanosis or edema. Neurologic: She has no focal deficits in terms of cranial nerves, motor, sensory, coordination, or g ait. Rehab And Medical Assessment And Plan: Ms. Saavedra is admitted to the inpatient rehabilitation unit w [facility] rehab impairment category of 09, orthopedic. Her impairment group code is 08.9, other orthopedic . Etiologic Diagnoses: Right hip hematoma, status post right hip total arthroplasty. Comorbidities ar e atrial fibrillation, congestive heart failure, chronic anemia, diastolic congestive heart failure, dyslipidemia, hypertension, postoperative anemia, blood transfusions 3, chronic obstructive pulmonary disease. Plan: 1.She will have physical and occupational therapy for 3 hours a day, 5 of 7 days. 2.We will continue Lipitor for dyslipidemia, aspirin for stroke risk reduction, Cordarone for heart rate and blood pressure control, Fosamax for her renal insufficiency, [place] 7.5/325 every 6 hours as needed for pain, Colace 100 mg twice daily for constipation, Lovenox 60 mg every 12 hours for DVT pro phylaxis. Continue with ferrous sulfate for anemia, Lasix 20 mg daily for fluid management, gabapent in 300 mg 3 times daily for neuropathic pain. Continue Lopressor 25 mg twice daily for heart rate an d blood pressure control and continue Ensure Enlive for her malnutrition. Continue oxycodone as need ed for pain, Protonix for GE reflux, Senokot-S for constipation and Coumadin for her heart valve repl acement and stroke risk reduction, increasing cough risk, and Ambien as needed for insomnia. Impact Of Comorbidities On Rehabilitation Process: Given atrial fibrillation and risk of stroke, she is on anticoagulation, however, that does put her at risk for bleeding as she has had in the right h ip at the surgical site. Followup precautions will be strongly adhered to the right hip and may have to be imaged again to rule out any worsening bleeding. She may have retroperitoneal bleed also as a risk with anticoagulation. Would also be cautious about the patient's bowel issues. She is on mult iple narcotics. We will begin to cut back and use neuromodulators like gabapentin and Lyrica or Elav il to minimize exposure to narcotic medications. Rehab Specific Plan: 1.Ms. Saavedra will have physical and occupational therapy for 3 hours a day, 5 of 7 days. She will b e able to improve her upper and lower body dressing, donning and doffing of shoes, improve her transf ers, all to become independent. Plan will be to ambulate over 250 feet with modified independence us ing a rolling walker. Also propelled wheelchair 250 feet with modified independence. 2.Will go up and down 15 to 20 steps with modified independent. 3.All her cognitive functioning in terms of decision making, medications, or plans in future should be done with independence. 4.She will have social work discharge planning for her next level of management which may include [facility] if she is doing well enough. Ms. Saavedra has a good understanding of the process of admission to the inpatient rehabilitation unit and she will be engaged with physical and occupational therapy. She has a potential to do very well. If need be, she will have a consultation from the Orthopedic Service, Cardiology Service, Pulmonary Service to assist in her management. Given her complex medical condition and risk of further compli cations, rehabilitation cannot be safely or effectively provided at the lower level of care such as s [facility] nursing. Barriers To Discharge: She does have the large hematoma that is currently resolving over a chronic p eriod of time and she has number of narcotic medications. We will attempt to wean those down before discharge and manage again the hematoma. May need to be re-imaged prior to leaving. Length Of Stay: Around 14 days. Disposition: Home family. Prognosis: Good. Rehabilitation Goals: 1.Independent with upper and lower body dressing, toileting, showering. 2.Independently ambulate 250 feet with a rolling walker. 3.Independently propel a wheelchair 250 feet. 4.Independently go up and down 20 steps while holding onto bilateral handrails. 5.Independently perform cognitive functioning and likely take all medications appropriately and perf orming all of her activities of daily living without any issues. The above goals were reviewed with Ms. Saavedra and she is in agreement. By signing this document, I acknowledge that I performed a full physical examination on Ms. Saavedra no later than 24 hours after admission to the inpatient rehabilitation facility and determined that she is able to tolerate the above course of treatment at an intensive level for a reasonable period of t michel. A detailed individualized plan of care for her will be completed by hospital day 4 based on the preadmission screen, history and physical, and therapy evaluations. LAMBERTO Voice ID: [id number]
[2023-03-12] MEDS: ZOLPIDEM TARTRATE 5 MG TABLET PO SCH (19:34)
[2023-03-12] MEDS: ATORVASTATIN 80 MG TAB PO SCH (19:35)
[2023-03-12] MEDS: DOCUSATE NA/SENNA CONC 1 TAB PO SCH (19:36)
[2023-03-13] MEDS: ENOXAPARIN 60 MG/0.6 ML SQ SCH ×2 (07:30→20:25)
[2023-03-13 08:24] LABS: Protime INR 2.39
[2023-03-13] MEDS: OXYCODONE HCL 5 MG TAB PO SCH ×2 (08:59→20:25)
[2023-03-13] MEDS: DOCUSATE NA 100 MG CAP PO SCH ×3 (08:59→20:26)
[2023-03-13] MEDS: FUROSEMIDE 20 MG TABLET PO SCH (09:00)
[2023-03-13] MEDS: PANTOPRAZOLE 40MG TABLET PO SCH ×2 (09:00→16:59)
[2023-03-13] MEDS: FERROUS SULFATE 325 MG TAB PO SCH ×3 (09:00→20:27)
[2023-03-13] MEDS: GABAPENTIN 300 MG CAP PO SCH ×2 (09:00→20:26)
[2023-03-13] MEDS: AMIODARONE HCL 200 MG TAB PO SCH (09:00)
[2023-03-13] MEDS: DOCUSATE NA/SENNA CONC 1 TAB PO SCH (09:00)
[2023-03-13] MEDS: FE SULF/FA/VIT B COMP & C TAB PO SCH (09:00)
[2023-03-13] MEDS: EZETIMIBE 10 MG TAB PO SCH (09:00)
[2023-03-13] MEDS: ASPIRIN EC 81 MG TAB PO SCH (09:01)
[2023-03-13] MEDS: ENSURE ENLIVE 237 ML CAN PO SCH ×2 (09:12→20:27)
[2023-03-13] MEDS: METOPROLOL TAR 25 MG TAB PO SCH ×2 (09:14→20:27)
[2023-03-13] MEDS ORDERED: ENOXAPARIN 60 MG/0.6 ML SQ SCH (13:31)
[2023-03-13] MEDS: WARFARIN SODIUM 2.5 MG TAB PO SCH (17:00)
[2023-03-13] MEDS ORDERED: DOCUSATE NA/SENNA CONC 1 TAB PO PRN (17:09)
[2023-03-13] MEDS: MAGNESIUM OXIDE 400 MG TAB PO SCH (20:25)
[2023-03-13] MEDS: ZOLPIDEM TARTRATE 5 MG TABLET PO SCH (20:26)
[2023-03-13] MEDS: ATORVASTATIN 80 MG TAB PO SCH (20:27)
[2023-03-14 03:52] LABS: Absolute Lymphocytes (CBC) 0.8 K/uL (0.7-4.9); Hematocrit 24.4 % (36.0-45.0); Lymphocytes % 12.9 % (15.3-44.8); MCV 95.5 fL (80-100); MPV 7.9 fL (7.6-11.3); Platelets 350 thou/uL (152-406); RBC Red Blood Cell Count 2.56 M/uL (3.86-4.86)
[2023-03-14 04:03] LABS: Protime INR 2.43
[2023-03-14 04:31] LABS: Magnesium 2.2 mg/dL (1.6-2.4); Potassium 3.6 mEq/L (3.5-5.1); Prealbumin 12.9 mg/dL (20-40)
[2023-03-14] MEDS: PANTOPRAZOLE 40MG TABLET PO SCH ×2 (07:10→17:20)
[2023-03-14] MEDS: ENOXAPARIN 60 MG/0.6 ML SQ SCH (07:10)
[2023-03-14] MEDS: OXYCODONE HCL 5 MG TAB PO SCH ×2 (07:52→19:22)
[2023-03-14] MEDS: DOCUSATE NA 100 MG CAP PO SCH ×3 (07:52→20:00)
[2023-03-14] MEDS: METOPROLOL TAR 25 MG TAB PO SCH ×2 (07:53→19:21)
[2023-03-14] MEDS: EZETIMIBE 10 MG TAB PO SCH (07:53)
[2023-03-14] MEDS: FE SULF/FA/VIT B COMP & C TAB PO SCH (07:54)
[2023-03-14] MEDS: AMIODARONE HCL 200 MG TAB PO SCH (07:54)
[2023-03-14] MEDS: MAGNESIUM OXIDE 400 MG TAB PO SCH ×2 (07:54→19:22)
[2023-03-14] MEDS: GABAPENTIN 300 MG CAP PO SCH ×2 (07:55→19:22)
[2023-03-14] MEDS: FERROUS SULFATE 325 MG TAB PO SCH ×2 (07:55→19:22)
[2023-03-14] MEDS: FUROSEMIDE 20 MG TABLET PO SCH (07:55)
[2023-03-14] MEDS: ASPIRIN EC 81 MG TAB PO SCH (07:55)
[2023-03-14] MEDS: ENSURE ENLIVE 237 ML CAN PO SCH ×2 (07:56→19:22)
[2023-03-14] MEDS: LIDOCAINE 4% PATCH TOP SCH (11:38)
[2023-03-14] MEDS: WARFARIN SODIUM 2.5 MG TAB PO SCH (17:20)
[2023-03-14] MEDS: ATORVASTATIN 80 MG TAB PO SCH (19:22)
[2023-03-14] MEDS: ZOLPIDEM TARTRATE 5 MG TABLET PO SCH (19:22)
--- NOTE | 2023-03-14 22:24 | PN ---
Date of Progress Note: 03/14/2023 Time Of Service: 1 p.m. Subjective: Ms. Saavedra is resting in bed. She does say there is still some oozing at the right hip surgical site, where she has a hematoma. She actually has Coumadin and Lovenox, and the Lovenox has been stopped and INR is above 2. We will keep a target to around 2 to 3. Again, heparin has been st opped. No other new complaints. Review of Systems: No fevers, chills, nausea, vomiting. Some pain in the right hip and right lower extremity. Mild swe lling there. Otherwise, no other positives on the systems review. Physical Examination: Vital Signs: Blood pressure 130/61, pulse 55, respiratory rate of 16, temperature 97.2, oxygen satur ation 92% on room air. General: Ms. Saavedra is resting comfortably, no significant distress. Extremities: Pain, right hip surgical site. Does have good hemostasis, although there is some mild drainage noted and the hematoma, which is at the lateral side of the knee, is still somewhat firm, bu t not warm, not showing any evidence of infection. No exudates that are consistent with infection no bandar, just serous fluid. Otherwise, no other examination abnormalities. Medications: Tylenol 500 mg every 6 hours as needed, [place] 7.5/325 every 6 hours as needed, Fosamax 70 mg daily, Cordarone 200 mg daily, aspirin 81 mg daily, Lipitor 80 mg at bedtime, Colace 100 mg twi ce daily, Zetia 10 mg daily, ferrous sulfate 325 mg daily, Lasix 20 mg daily, gabapentin 600 mg twice daily, lidocaine patch apply topically daily, magnesium oxide 400 mg twice daily, Lopressor 25 mg tw ice daily, multivitamin daily, Ensure Enlive 237 mL daily, Zofran 4 mg every 6 hours as needed, oxyco done 10 mg twice daily, Protonix 40 mg at bedtime, Senokot-S 2 at bedtime, Coumadin 2.5 mg daily, zol pidem 10 mg at bedtime. Laboratory Studies: White blood cell count 5.8, hemoglobin 7.8. She will have a repeat and if need be will receive a unit of packed red blood cells. Platelets 350. INR 2.43. Sodium 140, potassium 3 .6, chloride 105, carbon dioxide 27, BUN 16, creatinine 0.86, glucose ranging up to 118. Calcium 8.2 , magnesium 2.2. Prealbumin 12.9, albumin 2.0. Progress Made With Physical And Occupational Therapy: Today, Ms. Saavedra was able to ambulate 250 fee t twice, 112 feet 3 times, and 100 feet once with standby assistance using a rolling walker. She was able to ascend and descend several steps with bilateral handrails and she did 15 steps. With occupa tional therapy, independent with toileting, bathing, upper and lower body dressing, foot wear as well . Independent with bed mobilization and ambulated from room to toilet to shower to gym with a james g walker with independence. She is doing rails without the need for speech therapy. Ms. Saavedra is making excellent progress with her physical and occupational therapy. Her goal is to b ecome independent with upper and lower body dressing, transferring, toileting, ambulating 250 feet in dependently, mobilize in a wheelchair 250 feet independently, up and down 15 steps independently, and performing all cognitive functioning independently and she is well on her way to doing in an excelle nt fashion. Assessment: Ms. Saavedra is a 67-year-old patient with right hip fracture and hematoma at the site of the fracture, pretty large hematoma. She is on Coumadin and Lovenox. Lovenox has been stopped. She has diastolic congestive heart failure, atrial fibrillation, chronic anemia, dyslipidemia, hypertens ion. Postoperative anemia and had blood transfusions prior to coming to the unit, total of 3. She h as chronic obstructive pulmonary disease. Plan: 1.Continue with physical and occupational therapy for 3 hours a day, 5 to 7 days. 2.She will continue with multiple comorbid condition medications, which are listed above, to address her issues, including Colace and Lovenox. She is on Coumadin 2.5 mg daily. Lasix, gabapentin, Lopre ssor, continue as appropriate. It is noted she also had heart valve replacement, for which she is on Coumadin and it is not recommended that she be on Xarelto or Eliquis. Comorbidities That Continue To Impact Rehabilitation: She does have a significant risk of stroke, bu t also risk of bleeding, so it is balancing the anticoagulation with the risk of clots. She also had ongoing clot with oozing, so again INR around 2 to 3 will be a good range and discontinued her Loveno x as noted. TORRI/DANE Voice ID: [id number] Report ID: [id number]
[2023-03-15] MEDS: FERROUS SULFATE 325 MG TAB PO SCH ×2 (07:47→19:52)
[2023-03-15] MEDS: GABAPENTIN 300 MG CAP PO SCH ×2 (07:47→19:52)
[2023-03-15] MEDS: LIDOCAINE 4% PATCH TOP SCH (07:47)
[2023-03-15] MEDS: FE SULF/FA/VIT B COMP & C TAB PO SCH (07:47)
[2023-03-15] MEDS: DOCUSATE NA 100 MG CAP PO SCH ×2 (07:48→19:53)
[2023-03-15] MEDS: AMIODARONE HCL 200 MG TAB PO SCH (07:48)
[2023-03-15] MEDS: PANTOPRAZOLE 40MG TABLET PO SCH ×2 (07:56→16:50)
[2023-03-15] MEDS: OXYCODONE HCL 5 MG TAB PO SCH (07:59)
[2023-03-15] MEDS: ENSURE ENLIVE 237 ML CAN PO SCH ×2 (08:00→19:53)
[2023-03-15] MEDS: FUROSEMIDE 20 MG TABLET PO SCH (08:02)
[2023-03-15] MEDS: EZETIMIBE 10 MG TAB PO SCH (08:02)
[2023-03-15] MEDS: MAGNESIUM OXIDE 400 MG TAB PO SCH ×2 (08:06→19:52)
[2023-03-15] MEDS: ASPIRIN EC 81 MG TAB PO SCH (08:08)
[2023-03-15] MEDS: METOPROLOL TAR 25 MG TAB PO SCH ×2 (08:09→19:52)
[2023-03-15 08:13] LABS: Protime INR 2.65
--- NOTE | 2023-03-15 13:57 | P.RH.PN ---
Estimated Length of Stay: 9 Expected Discharge Date: 03/19/23 Discharge Disposition Plan: Home Family Support: Yes Vital Signs: Last Vital Signs Temp 97.4 F 03/15/23 06:59 Pulse 59 03/15/23 08:09 Resp 16 03/15/23 07:59 BP 128/59 L 03/15/23 08:09 Pulse Ox 91 03/15/23 07:59 Laboratory: Laboratory Last Values WBC 5.80 thou/uL (4.3-10.9) 03/14/23 02:56 RBC 2.56 M/uL (3.86-4.86) L 03/14/23 02:56 Hgb 7.8 g/dL (12.0-15.0) L 03/14/23 02:56 Hct 24.4 % (36.0-45.0) L 03/14/23 02:56 MCV 95.5 fL (80-100) 03/14/23 02:56 MCH 30.6 pg (27.0-35.0) 03/14/23 02:56 MCHC 32.1 g/dL (32.0-36.0) 03/14/23 02:56 RDW 21.6 % (12.1-15.2) H 03/14/23 02:56 Plt Count 350 thou/uL (152-406) 03/14/23 02:56 MPV 7.9 fL (7.6-11.3) 03/14/23 02:56 Neutrophils % 73.1 % (41.7-73.7) 03/14/23 02:56 Lymphocytes % 12.9 % (15.3-44.8) L 03/14/23 02:56 Monocytes % 10.3 % (3.3-12.3) 03/14/23 02:56 Eosinophils % 2.8 % (0-4.4) 03/14/23 02:56 Basophils % 0.9 % (0-1.3) 03/14/23 02:56 Absolute Neutrophils 4.2 K/uL (1.8-8.0) 03/14/23 02:56 Absolute Lymphocytes 0.8 K/uL (0.7-4.9) 03/14/23 02:56 Absolute Monocytes 0.6 K/uL (0.1-1.3) 03/14/23 02:56 Absolute Eosinophils 0.2 K/uL (0-0.5) 03/14/23 02:56 Absolute Basophils 0.1 K/uL (0-0.5) 03/14/23 02:56 Platelet Estimate Adeq 03/12/23 08:09 Polychromasia Slight 03/12/23 08:09 Anisocytosis 1+ 03/12/23 08:09 Macrocytosis 1+ 03/12/23 08:09 Morphology Comment Noted (NOT SEEN) 03/12/23 08:09 PT 29.1 SECONDS (9.5-12.5) H 03/15/23 07:06 INR 2.65 03/15/23 07:06 Sodium 140 mEq/L (136-145) 03/14/23 02:56 Potassium 3.6 mEq/L (3.5-5.1) 03/14/23 02:56 Chloride 105 mEq/L (98-107) 03/14/23 02:56 Carbon Dioxide 27 mEq/L (21-32) 03/14/23 02:56 Anion Gap 11.6 mEq/L (5.0-15.0) 03/14/23 02:56 BUN 16 mg/dL (7-18) 03/14/23 02:56 Creatinine 0.86 mg/dL (0.55-1.02) 03/14/23 02:56 Est GFR (CKD-EPI) 73 ml/min (=/>90) L 03/14/23 02:56 Glucose 118 mg/dL (74-106) H 03/14/23 02:56 Calcium 8.3 mg/dL (8.5-10.1) L 03/14/23 02:56 Magnesium 2.2 mg/dL (1.6-2.4) 03/14/23 02:56 Albumin 2.0 g/dL (3.4-5.0) L 03/14/23 02:56 Prealbumin 12.9 mg/dL (20-40) L 03/14/23 02:56 Urine Color Yellow (Yellow) 03/12/23 10:02 Urine Clarity Clear (Clear) 03/12/23 10:02 Urine pH 6.5 (5.0-7.0) 03/12/23 10:02 Ur Specific [place] 1.010 (1.005-1.030) 03/12/23 10:02 Glucose (UA)(Auto) Negative (Negative) 03/12/23 10:02 Urine Ketones Negative (Negative) 03/12/23 10:02 Urine Blood Trace-intact (Negative) H 03/12/23 10:02 Urine Nitrite Negative (Negative) 03/12/23 10:02 Urine Bilirubin Negative (Negative) 03/12/23 10:02 Urine Urobilinogen 0.2 mg/dL (0.2-1.0) 03/12/23 10:02 Ur Leukocyte Esterase Negative (Negative) 03/12/23 10:02 Urine RBC <5 /HPF (None Seen) 03/12/23 09:48 Urine WBC <5 /HPF (<5) 03/12/23 09:48 Ur Squamous Epith Cells <5 /HPF (None Seen) 03/12/23 09:48 Urine Bacteria None seen /HPF (<20) 03/12/23 09:48 Urine Culture Reflexed Not needed 03/12/23 09:48 Urine Total Protein Negative (Negative) 03/12/23 10:02 Smear Scan Ok (OK) 03/12/23 08:09 Weight: 125 lb Wound Present: No Closed Surgical Incision Present: Yes Negative Pressure Wound Therapy Present: No Physician Update: Labs reviewed with low HgB of 7.8. Pain is fairly well managed. Will keep INRR 2 to 3. On coumadin 2.5 mg daily. SBA 250', steps 15, WC 250'. Today 750' with RW. Doing well with occupational therapy. Comment: Foam dressing applied to sacrum for protection Summary: Patient's care plan and senior care goals have been reviewed and revised as necessary. Please see the Rehabilitation Signature page for all necessary signatures.
[2023-03-15] MEDS: WARFARIN SODIUM 2.5 MG TAB PO SCH (16:51)
[2023-03-15] MEDS: ATORVASTATIN 80 MG TAB PO SCH (19:51)
[2023-03-15] MEDS: HYDROCODONE/APAP 5/325 MG TAB PO PRN (19:52)
[2023-03-15] MEDS: ZOLPIDEM TARTRATE 5 MG TABLET PO SCH (19:52)
[2023-03-16] MEDS: HYDROCODONE/APAP 5/325 MG TAB PO PRN ×3 (04:44→19:26)
[2023-03-16] MEDS: PANTOPRAZOLE 40MG TABLET PO SCH ×2 (07:09→17:06)
[2023-03-16] MEDS: FE SULF/FA/VIT B COMP & C TAB PO SCH (07:09)
[2023-03-16] MEDS: DOCUSATE NA 100 MG CAP PO SCH ×4 (07:10→19:35)
[2023-03-16] MEDS: GABAPENTIN 300 MG CAP PO SCH ×2 (07:10→19:27)
[2023-03-16] MEDS: FUROSEMIDE 20 MG TABLET PO SCH (07:10)
[2023-03-16] MEDS: MAGNESIUM OXIDE 400 MG TAB PO SCH ×2 (07:11→19:26)
[2023-03-16] MEDS: FERROUS SULFATE 325 MG TAB PO SCH ×2 (07:11→19:27)
[2023-03-16] MEDS: ASPIRIN EC 81 MG TAB PO SCH (07:11)
[2023-03-16] MEDS: EZETIMIBE 10 MG TAB PO SCH (07:11)
[2023-03-16] MEDS: AMIODARONE HCL 200 MG TAB PO SCH (07:11)
[2023-03-16] MEDS: LIDOCAINE 4% PATCH TOP SCH (07:12)
[2023-03-16] MEDS: ENSURE ENLIVE 237 ML CAN PO SCH ×2 (07:14→19:27)
[2023-03-16] MEDS: METOPROLOL TAR 25 MG TAB PO SCH ×2 (07:22→19:26)
[2023-03-16 07:40] LABS: Protime INR 2.78
[2023-03-16 07:47] LABS: Absolute Lymphocytes (CBC) 0.8 K/uL (0.7-4.9); Lymphocytes % 12.5 % (15.3-44.8); MCV 95.7 fL (80-100); MPV 7.6 fL (7.6-11.3); Platelets 345 thou/uL (152-406); RBC Red Blood Cell Count 2.62 M/uL (3.86-4.86)
[2023-03-16 11:40] LABS: Anisocytosis 1+; Blood Morphology Comment NOTED (NOT SEEN); Platelet Estimate ADEQ; White Blood Cell Scan OK (OK)
--- NOTE | 2023-03-16 12:37 | RAD REPORT ---
EXAM DESCRIPTION: US - Extrem Venous W Compress Yves - 03/16/2023 11:20 am CLINICAL HISTORY: pain/swelling Bilateral leg edema and swelling. COMPARISON: Extrem Venous W Compress Yves dated 08/21/2022 TECHNIQUE: Real-time sonographic interrogation of the left and right lower extremity deep venous sys tems was performed. FINDINGS: Normal compressibility, flow augmentation, phasic flow and spontaneous flow is identified in both the left and right lower extremity deep venous systems. IMPRESSION: No sonographic evidence of left or right lower extremity deep venous thrombosis.
[2023-03-16] MEDS: WARFARIN SODIUM 2.5 MG TAB PO SCH (17:06)
[2023-03-16] MEDS: ATORVASTATIN 80 MG TAB PO SCH (19:26)
[2023-03-16] MEDS: ZOLPIDEM TARTRATE 5 MG TABLET PO SCH (19:26)
[2023-03-17] MEDS: PANTOPRAZOLE 40MG TABLET PO SCH ×2 (07:02→16:29)
[2023-03-17] MEDS: DOCUSATE NA 100 MG CAP PO SCH ×2 (08:00→20:00)
[2023-03-17 08:05] LABS: Protime INR 3.03
[2023-03-17] MEDS: LIDOCAINE 4% PATCH TOP SCH (08:41)
[2023-03-17] MEDS: FE SULF/FA/VIT B COMP & C TAB PO SCH (08:41)
[2023-03-17] MEDS: GABAPENTIN 300 MG CAP PO SCH ×2 (08:41→19:47)
[2023-03-17] MEDS: EZETIMIBE 10 MG TAB PO SCH (08:42)
[2023-03-17] MEDS: FUROSEMIDE 20 MG TABLET PO SCH (08:42)
[2023-03-17] MEDS: FERROUS SULFATE 325 MG TAB PO SCH ×2 (08:42→19:51)
[2023-03-17] MEDS: AMIODARONE HCL 200 MG TAB PO SCH (08:42)
[2023-03-17] MEDS: MAGNESIUM OXIDE 400 MG TAB PO SCH ×2 (08:43→19:52)
[2023-03-17] MEDS: METOPROLOL TAR 25 MG TAB PO SCH ×2 (08:44→19:52)
[2023-03-17] MEDS: HYDROCODONE/APAP 5/325 MG TAB PO PRN ×4 (08:47→20:11)
[2023-03-17] MEDS: ENSURE ENLIVE 237 ML CAN PO SCH ×2 (09:25→20:11)
[2023-03-17 09:52] LABS: Hematocrit 26.9 % (36.0-45.0)
[2023-03-17] MEDS ORDERED: WARFARIN SODIUM 2.5 MG TAB PO SCH (17:00)
[2023-03-17] MEDS: ZOLPIDEM TARTRATE 5 MG TABLET PO SCH (19:47)
[2023-03-17] MEDS: ATORVASTATIN 80 MG TAB PO SCH (19:52)
[2023-03-18 03:54] LABS: Protime INR 2.97
[2023-03-18] MEDS ORDERED: ALENDRONATE 70 MG TAB PO SCH (06:00)
[2023-03-18] MEDS: PANTOPRAZOLE 40MG TABLET PO SCH ×2 (06:37→16:56)
[2023-03-18] MEDS: DOCUSATE NA 100 MG CAP PO SCH ×2 (07:22→20:00)
[2023-03-18] MEDS: FERROUS SULFATE 325 MG TAB PO SCH ×2 (07:24→20:53)
[2023-03-18] MEDS: FE SULF/FA/VIT B COMP & C TAB PO SCH (07:24)
[2023-03-18] MEDS: GABAPENTIN 300 MG CAP PO SCH ×2 (07:25→20:52)
[2023-03-18] MEDS: AMIODARONE HCL 200 MG TAB PO SCH (07:25)
[2023-03-18] MEDS: FUROSEMIDE 20 MG TABLET PO SCH (07:25)
[2023-03-18] MEDS: EZETIMIBE 10 MG TAB PO SCH (07:25)
[2023-03-18] MEDS: LIDOCAINE 4% PATCH TOP SCH (07:26)
[2023-03-18] MEDS: ENSURE ENLIVE 237 ML CAN PO SCH ×2 (07:52→20:00)
[2023-03-18] MEDS: METOPROLOL TAR 25 MG TAB PO SCH ×2 (07:52→20:53)
[2023-03-18] MEDS: HYDROCODONE/APAP 5/325 MG TAB PO PRN ×3 (07:53→20:53)
[2023-03-18] MEDS: MAGNESIUM OXIDE 400 MG TAB PO SCH ×2 (09:20→20:53)
[2023-03-18] MEDS ORDERED: WARFARIN SODIUM 2 MG TAB PO SCH (17:00)
[2023-03-18] MEDS: ATORVASTATIN 80 MG TAB PO SCH (20:52)
[2023-03-18] MEDS: ZOLPIDEM TARTRATE 5 MG TABLET PO SCH (20:53)
--- NOTE | 2023-03-19 02:11 | PN ---
Date of Progress Note: 03/18/2023 Time Of Service: 1:35 p.m. Subjective: Ms. Saavedra is doing very well. She is happy with therapy and like to be able to go home in the morning. She was seen by Dr. Nelson. The right hip surgical site still has some oozing. She was told that it is very important to have home health with [facility] to come out to take the dressing changes. At one point, she was reluctant to have Home Health, but at the end of the con versation about the importance of a daily dressing changes, she is in agreement to have Home Health d one. Dr. Nelson will follow the patient after discharge. She will have hemoglobin and hematocrit checked. We did communicate prior to surgery. She did receive a few units of packed red blood cell s. Her preop workup did show a hemoglobin around 9 and that increased to 12 after the transfusion, b ut then on the day of surgery, it was back to around 9.2. She does have a Hemocyte Plus and ferrous sulfate on board. Review of Systems: She denies any significant fevers, chills, nausea, vomiting. There is still hematoma on the right la teral hip, still drainage is noted serous material. Otherwise, negative on systems review. Physical Examination: Vital Signs: Blood pressure 132/60, pulse 52, respiratory rate 18, temperature 98.1, oxygen saturati on 92%. General: Ms. Saavedra is lying in bed between therapy sessions. HEENT: She is normocephalic, atraumatic. Sclerae anicteric. Oropharynx pink, moist. Neck: Supple. Extremities: With some edema and now oozing at the right hip surgical site, but there is a soft jonh nikole present. Mild right lower extremity edema postoperatively. Medications: [place] 5/325 every 4 hours as needed; Fosamax 70 mg daily; Cordarone 200 mg daily; Lipit or 10 mg at bedtime; Tylenol 500 mg every 6 hours as needed; Colace 100 mg twice daily; Zetia 100 mg daily; ferrous sulfate 325 mg twice daily; Lasix 20 mg daily; gabapentin 600 mg twice daily; magnesiu m oxide 400 mg twice daily; Lopressor 25 mg daily; lidocaine patch apply topically daily; Hemocyte Pl us 1 daily; Ensure Enlive 237 mL twice daily; Zofran 4 mg every 6 hours as needed; Protonix 40 mg twi ce daily; Senokot-S 2 at bedtime; Coumadin 2 mg on Saturday, Saturday, Saturday, Saturday and 2.5 mg on , , Saturday; Ambien 10 mg at bedtime. Laboratory Studies: Yesterday, hemoglobin improved to 8.7 on the , was down to 7.8 on the an d hematocrit increased to 26.9 from 24.4. Today, her INR is 2.97, target goal around 2 to 3 INR. On the , prealbumin was 12.9. X-ray/imaging: She had a venous Doppler study of her right lower extremity where there was the proxi mal clot of the hip surgical site. The study showed no sonographic evidence of a left and actually a lso the right lower extremity was done deep vein thrombosis that is bilaterally, in right no evidence of deep vein thrombosis. Progress Made With Physical And Occupational Therapy: With her physical therapy today, she completed gait training over 1000 feet with a rolling walker independently. She was able to go up and down 20 steps independently with bilateral handrails and she self propelled a wheelchair 500 feet independen tly. She is able to lock on a locked wheelchair and all of that safely. She did multiple sit-to-sta nd transfers independently. With occupational therapy, independent with toileting, completed transfe r on toilet independently. She did multiple sit to stands and is doing very well. Dr. Nelson did inspect the surgical site and mentioned that she has old blood draining from the hematoma and there is no evidence of any new bleeding in that area. Her current functional status continued. She has made excellent progress. Her physical and occupati onal therapy is now at independence levels and she is ready for discharge. She will have Home Health to continue with the dressing changes of the right hip surgical hematoma postsurgical. Assessment: Ms. Saavedra is a 67-year-old patient with right hip fracture, status post surgical repair . She has a hematoma over the right surgical site and she is now on Coumadin, which is therapeutic. Aspirin is discontinued. Lovenox discontinued. She has comorbid diastolic congestive heart failure , atrial fibrillation, chronic anemia, dyslipidemia, hypertension, and chronic obstructive pulmonary disease. Plan: For now, she will continue with physical and occupational therapy for 3 hours, 5 to 7 days and tomorrow, plan on discharging home with Home Health and she will continue with Coumadin alternating 2 mg and 2.5 mg every other day. We will continue with gabapentin and Lopressor. Comorbidities That Continue To Impact Her Rehabilitation: Currently, the hematoma over the right hip is draining. Dressing changes required at least on a daily basis and the patient to have skilled nu rsing with Home Health that can help facilitate that and follow up with Dr. Nelson after discharge . TORRI/DANE Voice ID: [id number] Report ID: [id number]
[2023-03-19] MEDS: HYDROCODONE/APAP 5/325 MG TAB PO PRN ×2 (05:45→10:09)
[2023-03-19 06:59] VITALS: BP 150/67; TEMP 96.8
[2023-03-19] MEDS: PANTOPRAZOLE 40MG TABLET PO SCH (07:08)
[2023-03-19] MEDS: DOCUSATE NA 100 MG CAP PO SCH (07:33)
[2023-03-19] MEDS: FUROSEMIDE 20 MG TABLET PO SCH (07:33)
[2023-03-19] MEDS: EZETIMIBE 10 MG TAB PO SCH (07:33)
[2023-03-19] MEDS: FERROUS SULFATE 325 MG TAB PO SCH (07:34)
[2023-03-19] MEDS: MAGNESIUM OXIDE 400 MG TAB PO SCH (07:34)
[2023-03-19] MEDS: AMIODARONE HCL 200 MG TAB PO SCH (07:34)
[2023-03-19] MEDS: GABAPENTIN 300 MG CAP PO SCH (07:35)
[2023-03-19] MEDS: ENSURE ENLIVE 237 ML CAN PO SCH (07:35)
[2023-03-19] MEDS: LIDOCAINE 4% PATCH TOP SCH ×2 (07:36→08:01)
[2023-03-19] MEDS: METOPROLOL TAR 25 MG TAB PO SCH (07:36)
[2023-03-19 07:45] LABS: Hematocrit 27.1 % (36.0-45.0); Protime INR 2.68
[2023-03-19] MEDS: FE SULF/FA/VIT B COMP & C TAB PO SCH (07:56)
[2023-03-19] MEDS ORDERED: WARFARIN SODIUM 2.5 MG TAB PO SCH (17:00)
[2023-03-19] MEDS ORDERED: WARFARIN SODIUM 2 MG TAB PO SCH (17:00)
== END 2023-03-19 14:50 | disposition home health service (06) | DRG 920 ==
LOC: 5TH 03-11 15:15
PROVIDERS: ADMIT Psychiatry & Neurology Neurology with Special Qualifications in Child Neurology; ATTEND Psychiatry & Neurology Neurology with Special Qualifications in Child Neurology
DX: M96.840 Postprocedural hematoma of a musculoskeletal structure following a musculoskeletal system procedure (principal); I50.30 Unspecified diastolic (congestive) heart failure; Y83.8 Other surgical procedures as the cause of abnormal reaction of the patient, or of later complication, without mention of misadventure at the time of the procedure; I48.91 Unspecified atrial fibrillation; M19.90 Unspecified osteoarthritis, unspecified site; I50.9 Heart failure, unspecified; I10 Essential (primary) hypertension; K21.9 Gastro-esophageal reflux disease without esophagitis; E78.5 Hyperlipidemia, unspecified; D64.89 Other specified anemias; J44.9 Chronic obstructive pulmonary disease, unspecified
CPT/HCPCS: 36415; 80048; 81001; 81003; 82040; 83735; 84134; 85014; 85018; 85025; 85610; 87077; 87086; 87088; 87186; 93970; 97110; 97116; 97163; 97165; 97530; 97542; J1650; J2001

== ENCOUNTER → 2023-04-27 | Emergency (ER) | payer OTHER ==
[~2023-04-27] MED LIST: CEFTRIAXONE 1000 MG/VIAL ONE; NA CHLORIDE 0.9% 1,000 ML ONE; levoFLOXacin 250 MG TAB ONE
--- NOTE | 2023-04-27 13:12 | RAD REPORT ---
EXAM DESCRIPTION: RAD - Chest Single View - 04/27/2023 1:03 pm CLINICAL HISTORY: COUGH Chest pain. COMPARISON: <Comparisons> FINDINGS: Portable technique limits examination quality. The lungs are emphysematous but grossly clear. The heart moderately enlarged. No displaced fractures. Aortic atherosclerosis. Sternotomy wires. IMPRESSION: Prominent COPD pattern.
[2023-04-27 13:15] LABS: Hematocrit 33.9 % (36.0-45.0); Lymphocytes % 8.7 % (15.3-44.8); MCV 94.6 fL (80-100); MPV 7.5 fL (7.6-11.3); Platelets 202 thou/uL (152-406); RBC Red Blood Cell Count 3.58 M/uL (3.86-4.86)
[2023-04-27 13:28] LABS: Albumin 3.1 g/dL (3.4-5.0); Bilirubin Direct 0.2 mg/dL (0-0.2); Bilirubin Indirect, Calculated 0.4 mg/dL (0.2-0.8); Bilirubin Total 0.6 mg/dL (0.2-1.0); Magnesium 1.8 mg/dL (1.6-2.4); Potassium 3.6 mEq/L (3.5-5.1); Troponin High Sensitivity 11.1 pg/mL (<58.9)
[2023-04-27 13:30] LABS: Protime INR 3.39
[2023-04-27 13:46] LABS: SARS-COV-2 RT PCR NEGATIVE (NEGATIVE)
[2023-04-27 14:54] LABS: Urine Bacteria <20 /HPF (<20); Urine Bilirubin NEGATIVE (Negative); Urine Blood 2+ (Negative); Urine Clarity Turbid (Clear); Urine Color Light-Yellow (Yellow); Urine Glucose NEGATIVE (Negative); Urine Mucus Slight /HPF (None Seen); Urine Protein NEGATIVE (Negative); Urine RBC 21-50 /HPF (None Seen); Urine Urobilinogen Normal (Normal); Urine pH 6.5 (5.0-7.0)
--- NOTE | 2023-04-27 15:02 | RAD REPORT ---
EXAM DESCRIPTION: CT - Head C Spine Phill Jacobsen - 04/27/2023 2:31 pm CLINICAL HISTORY: Head and neck injury with chest and abdominal pain status post fall. Head and neck pain . TECHNIQUE: Computed axial tomography of the head and cervical spine was obtained Computed axial tomography of the chest, abdomen and pelvis was obtained. 100 cc Isovue-300 was given intravenously coronal and sagittal reconstruction was performed. All CT scans are performed using dose optimization technique as appropriate and may include automated exposure control or mA/KV adjustment according to patient size. COMPARISON: 2020 FINDINGS: An intracranial bleed is not seen. The ventricles are normal in caliber. An extra-axial fl uid collection is not noted. Left maxillary and ethmoid sinusitis A cervical fracture is not seen. No dislocation is seen. A mediastinal hematoma is not noted. A pleural effusion is not present. A lung contusion is not seen. The descending thoracic aorta AP diameter 4.2 centimeters The liver, spleen, pancreas, adrenals, kidneys and bladder do not demonstrate an acute traumatic inju ry Old compression fractures T7 and L1 vertebral bodies. Right hip arthroplasty. Cholelithiasis. Gallbladder wall appears thickened. IMPRESSION: No acute intracranial abnormality is seen A cervical fracture is not visualized. If the patient continues have symptoms to suggest intracranial /spinal cord pathology then MRI would be recommended. No acute traumatic injury involving the chest, abdomen or pelvis is seen. Cholelithiasis. Thickened gallbladder wall may indicate cholecystitis Descending thoracic aorta AP diameter 4.2 centimeters
--- NOTE | 2023-04-27 16:22 | EDPHYS ---
Physician Documentation [facility] Name: Michelle Saavedra Age: 67 yrs Sex: Female : 1955 Arrival Date: 04/27/2023 Time: 12:35 Bed 17 Private MD: ED Physician Gab Del Real HPI: 04/27 16:12 This 67 yrs old Female presents to ER via Ambulatory with complaints of Pain milton All Over. 16:12 The patient or guardian reports pain, tenderness. The complaints affect the top of milton head, left frontal area and right frontal area, back and chest. Context of injury: The problem was sustained at home, resulted from a fall. Onset: The symptoms/episode began/occurred 3 day(s) ago. Associated signs and symptoms: Loss of consciousness: This patient did not experience any loss of consciousness. Details of fall: The patient fell from an upright position, while walking. Associated injuries: The patient sustained injury to the head, neck injury, injury to the chest, injury to the abdomen. Severity of symptoms: At their worst the symptoms were mild, in the emergency department the symptoms are unchanged. The patient or guardian reports chest pain that is located primarily in the anterior chest wall, anterior aspect of left upper chest, left lateral posterior chest, left lateral anterior chest and left breast. Historical: - Allergies: 13:12 Morphine; nj1 - PMHx: 13:12 Atrial fibrillation; Hypercholesterolemia; Hypertensive disorder; mechanical valve; nj1 - Immunization history:: Client reports having NOT received the Covid vaccine. - Social history:: Smoking status: Patient denies any tobacco usage or history of. - Family history:: not pertinent. ROS: 16:12 Constitutional: Negative for fever, chills, and weight loss, Eyes: Negative for injury, milton pain, redness, and discharge, ENT: Negative for injury, pain, and discharge, Neck: Negative for injury, pain, and swelling, Cardiovascular: Negative for chest pain, palpitations, and edema, Respiratory: Negative for shortness of breath, cough, wheezing, and pleuritic chest pain, Abdomen/GI: Negative for abdominal pain, nausea, vomiting, diarrhea, and constipation, : Negative for injury, bleeding, discharge, and swelling, MS/Extremity: Negative for injury and deformity, Skin: Negative for injury, rash, and discoloration, Psych: Negative for depression, anxiety, suicide ideation, homicidal ideation, and hallucinations, Allergy/Immunology: Negative for hives, rash, and allergies, Endocrine: Negative for neck swelling, polydipsia, polyuria, polyphagia, and marked weight changes, Hematologic/Lymphatic: Negative for swollen nodes, abnormal bleeding, and unusual bruising, 16:12 Back: Positive for decreased range of motion, pain with movement, of the thoracic area and lumbar area, 16:12 Neuro: Positive for headache, Exam: 16:12 Constitutional: This is a well developed, well nourished patient who is awake, alert, milton and in no acute distress. Head/Face: Normocephalic, atraumatic. Eyes: Pupils equal round and reactive to light, extra-ocular motions intact. Lids and lashes normal. Conjunctiva and sclera are non-icteric and not injected. Cornea within normal limits. Periorbital areas with no swelling, redness, or edema. ENT: Nares patent. No nasal discharge, no septal abnormalities noted. Tympanic membranes are normal and external auditory canals are clear. Oropharynx with no redness, swelling, or masses, exudates, or evidence of obstruction, uvula midline. Mucous membranes moist. Neck: Trachea midline, no thyromegaly or masses palpated, and no cervical lymphadenopathy. Supple, full range of motion without nuchal rigidity, or vertebral point tenderness. No Meningismus. Cardiovascular: Regular rate and rhythm with a normal S1 and S2. No gallops, murmurs, or rubs. Normal PMI, no JVD. No pulse deficits. Respiratory: Lungs have equal breath sounds bilaterally, clear to auscultation and percussion. No rales, rhonchi or wheezes noted. No increased work of breathing, no retractions or nasal flaring. Back: No spinal tenderness. No costovertebral tenderness. Full range of motion. Female : Normal external genitalia. Skin: Warm, dry with normal turgor. Normal color with no rashes, no lesions, and no evidence of cellulitis. MS/ Extremity: Pulses equal, no cyanosis. Neurovascular intact. Full, normal range of motion. Neuro: Awake and alert, GCS 15, oriented to person, place, time, and situation. Cranial nerves II-XII grossly intact. Motor strength 5/5 in all extremities. Sensory grossly intact. Cerebellar exam normal. Normal gait. Psych: Awake, alert, with orientation to person, place and time. Behavior, mood, and affect are within normal limits. 16:12 Chest/axilla: Inspection: normal, no abrasion, no abscess, no assymetry, no cellulitis, no deformity, no ecchymosis, no paradoxical chest wall movement, no puncture, no rash, no scar(s), Palpation: tenderness, that is moderate, of the left lateral posterior chest and left lateral anterior chest, 16:12 ECG was reviewed by the Attending Physician. Vital Signs: 13:00 BP 150 / 65; Pulse 65; Resp 19; Pulse Ox 99% on R/A; me1 13:09 BP 136 / 74; Pulse 80; Resp 17; Temp 98.2(TE); Pulse Ox 99% ; Weight 45.36 kg; Height 5 nj1 ft. 3 in. ; Pain 9/10; 14:00 BP 116 / 99; Pulse 65; Resp 20; Pulse Ox 100% on R/A; me1 15:00 BP 118 / 67; Pulse 65; Resp 19; Pulse Ox 99% on R/A; me1 15:30 BP 115 / 54; Pulse 66; Resp 18; Pulse Ox 100% on R/A; me1 15:30 BP 140 / 70; Pulse 67; Resp 18; Pulse Ox 99% on R/A; me1 13:09 Body Mass Index 17.71 (45.36 kg, 160.02 cm) nj1 13:09 Pain Scale: Adult nj1 [place] Coma Score: 16:12 Eye Response: spontaneous(4). Motor Response: obeys commands(6). Verbal Response: milton oriented(5). Total: 15. 16:16 Eye Response: spontaneous(4). Motor Response: obeys commands(6). Verbal Response: milton oriented(5). Total: 15. MDM: 12:39 Patient medically screened. milton 16:16 Differential diagnosis: Contusion of Hematoma on Laceration of Intracranial bleed- milton Concussion without LOC. cerebral contusion, Blunt Chest Trauma Chest Wall Contusion Chest Wall Injury Hemopericardium Pleural Effusion Pneumomediastinum Pneumopericardium Pneumothorax Pulmonary Contusion Rib Fracture Ruptured Hemidiaphragm. Differential diagnosis: abrasion, closed head injury, contusion, fracture, laceration, multiple trauma, sprain, strain. Data reviewed: vital signs, nurses notes, lab test result(s), EKG, radiologic studies, CT scan, plain films. Consideration of Admission/Observation Escalation of care including admission/observation considered. I considered the following discharge prescriptions or medication management in the emergency department Medications were administered in the Emergency Department. See MAR. Independent interpretation of the following test(s) in the Emergency Department EKG: See my EKG interpretation above. Test considered but Not performed: Ultrasound NO ABD USG. Care significantly affected by the following chronic conditions: Hypertension, Chronic Obstructive Pulmonary Disease, A FIB, VALVE REPLACE, ANTICOAG. Counseling: I had a detailed discussion with the patient and/or guardian regarding the historical points, exam findings, and any diagnostic results supporting the discharge/admit diagnosis, lab results, radiology results, the need for outpatient follow up, for definitive care, a ip/mosaic technician, a family practitioner. 04/27 12:44 Order name: Basic Metabolic Panel; Complete Time: 14:00 [facility] 04/27 12:44 Order name: CBC with Diff; Complete Time: 14:00 [facility] 04/27 12:44 Order name: LFT's; Complete Time: 14:00 [facility] 04/27 12:44 Order name: Magnesium; Complete Time: 14:00 [facility] 04/27 12:44 Order name: NT PRO-BNP; Complete Time: 14:00 [facility] 04/27 12:44 Order name: PT-INR; Complete Time: 14:00 [facility] 04/27 12:44 Order name: Troponin HS; Complete Time: 14:00 [facility] 04/27 12:44 Order name: COVID-19/FLU A+B/RSV; Complete Time: 14:00 [facility] 04/27 12:44 Order name: Urinalysis w/ reflexes; Complete Time: 15:14 [facility] 04/27 12:44 Order name: Strep [facility] 04/27 13:40 Order name: Throat Culture [facility] 04/27 15:01 Order name: Urine Culture [facility] 04/27 12:44 Order name: XRAY Chest (1 view); Complete Time: 14:00 [facility] 04/27 14:01 Order name: CT Traumagram (Head C Spine CAP W Con); Complete Time: 15:14 [facility] 04/27 12:44 Order name: EKG; Complete Time: 12:44 [facility] 04/27 12:44 Order name: Cardiac monitoring; Complete Time: 14:25 [facility] 04/27 12:44 Order name: EKG - Nurse/Tech; Complete Time: 13:17 [facility] 04/27 12:44 Order name: IV Saline Lock; Complete Time: 13:05 [facility] 04/27 12:44 Order name: Labs collected and sent; Complete Time: 13:05 [facility] 04/27 12:44 Order name: O2 Per Protocol; Complete Time: 14:25 [facility] 04/27 12:44 Order name: O2 Sat Monitoring; Complete Time: 14: [facility] EC:12 Rate is 80 beats/min. QRS interval is normal. QT interval is normal. No Q waves. T milton waves are Normal. Clinical impression: NSR w/ Non-specific ST/T Changes and No evidence of ischemia. Interpreted by me. Reviewed by me. Administered Medications: 14:23 Drug: NS 0.9% IV 1000 ml IV at 1 bolus Per protocol; 1000 mL bolus Route: IV; Rate: 1 me1 bolus; Site: left antecubital; 15:37 Follow up: IV Status: Completed infusion; IV Intake: 1000ml me1 15:34 Drug: Rocephin IV 1 grams IV at per protocol once; Given slow IV push per pharmacy me1 instructions Route: IV; Rate: per protocol; Site: left antecubital; 15:37 Follow up: Response: No adverse reaction; IV Status: Completed infusion me1 15:34 Drug: LevOfloxacin PO 500 mg PO once Route: PO; me1 16:19 Follow up: Response: No adverse reaction me1 Disposition Summary: 04/27/23 16:21 Discharge Ordered Notes: Location: Home milton Problem: new milton Symptoms: have improved milton Condition: Stable milton Diagnosis - Fall on same level, unspecified milton - Contusion of other part of head milton - Strain of muscle and tendon of back wall of thorax milton - Strain of muscle and tendon of front wall of thorax milton - UTI/ Urinary tract infection, site not specified mil[place] - jail (current) use of anticoagulants milton - Other cholelithiasis without obstruction milton - COPD/ Chronic obstructive pulmonary disease, unspecified milton Followup: milton - With: Private Physician - When: 2 - 3 days - Reason: Recheck today's complaints, Continuance of care, Re-evaluation by your physician Followup: milton - With: Jam Bolanos MD - When: 2 - 3 days - Reason: Recheck today's complaints, Re-evaluation by your physician Followup: milton - With: Oliver Villalobos MD - When: 2 - 3 days - Reason: Recheck today's complaints, Re-evaluation by your physician Discharge Instructions: - Discharge Summary Sheet milton - Dysuria milton - Head Injury, Adult milton - Urinary Tract Infection, Adult milton - Cholelithiasis milton - Cholelithiasis, [id number] milton - Chronic Obstructive Pulmonary Disease, [id number] milton - Urinary Tract Infection, Adult, [id number] milton - Head Injury, Adult, [id number] [facility] Forms: - Medication Reconciliation Form [facility] - Thank You Letter [facility] - Antibiotic Education [facility] - Prescription Opioid Use milton - Patient Portal Instructions [facility] - Leadership Thank You Letter [facility] Prescriptions: - acetaminophen-codeine 300-30 mg Oral tablet - take 1 tablet ORAL route every 4-6 hours as needed for pain; 20 tablet; milton Refills: 0, Product Selection Permitted - cefdinir 300 mg Oral capsule - take 1 capsule ORAL route every 12 hours; 10 capsule; Refills: 0, Product [facility] Selection Permitted - albuterol sulfate 90 mcg/actuation Inhalation HFA Aerosol Inhaler - inhale 2 puff INHALATION route every 6 to 8 hours as needed for shortness of milton breath or wheezing; until breathing returns to target peak flow/parameters; 1 unit; Refills: 0, Product Selection Permitted Signatures: Dispatcher [employer] Gab Nation MD MD cha Jaco, Norma, RN RN nj1 Katheryn Almaguer RN RN me1
--- NOTE | 2023-04-27 16:22 | ER ---
Nurse's Notes [facility] Name: Michelle Saavedra Age: 67 yrs Sex: Female : 1955 Arrival Date: 04/27/2023 Time: 12:35 Bed 17 Private MD: Diagnosis: Fall on same level, unspecified;Contusion of other part of head;Strain of muscle and tendon of back wall of thorax;Strain of muscle and tendon of front wall of thorax;UTI/ Urinary tract infection, site not specified;[employer] (current) use of anticoagulants;Other cholelithiasis without obstruction;COPD/ Chronic obstructive pulmonary disease, unspecified Presentation: 04/27 13:09 Chief complaint: Patient states: Pain all over for the last couple of days, states she nj1 fell 2 nights ago. Coronavirus screen: Vaccine status: Patient reports being unvaccinated. Ebola Screen: Patient denies travel to an Ebola-affected area in the 21 days before illness onset. Initial Sepsis Screen: Does the patient meet any 2 criteria? No. Patient's initial sepsis screen is negative. Does the patient have a suspected source of infection? No. Patient's initial sepsis screen is negative. Risk Assessment: Do you want to hurt yourself or someone else? Patient reports no desire to harm self or others. Onset of symptoms was February 24, 2024. 13:09 Method Of Arrival: Ambulatory [facility] 13:09 Acuity: JAKUB 3 nj1 Historical: - Allergies: 13:12 Morphine; nj1 - PMHx: 13:12 Atrial fibrillation; Hypercholesterolemia; Hypertensive disorder; mechanical valve; nj1 - Immunization history:: Client reports having NOT received the Covid vaccine. - Social history:: Smoking status: Patient denies any tobacco usage or history of. - Family history:: not pertinent. Screenin:45 [facility] ED Fall Risk Assessment (Adult) History of falling in the last 3 months, me1 including since admission Yes- single mechanical fall (1 pt) Confusion or Disorientation No (0 pts) Intoxicated or Sedated No (0 pts) Impaired Gait Yes (1 pt) Mobility Assist Device Used Yes (1 pt) Altered Elimination No (0 pt) Score/Fall Risk Level 3 or more points = High Risk Maintained a safe environment, Hourly rounding (assess needs \T\ fall precautionary measures) done, Used ambulatory aids as needed (educated on \T\ assisted with), Used gait belt as appropriate. Abuse screen: Denies threats or abuse. Nutritional screening: No deficits noted. Tuberculosis screening: No symptoms or risk factors identified. Assessment: 12:45 General: Appears uncomfortable, slender, well developed, Behavior is calm, cooperative, me1 appropriate for age, Reports Pain all over for the last couple of days, states she fell 2 nights ago. Pain: Complains of pain in head and back Pain does not radiate. Pain currently is 8 out of 10 on a pain scale. Quality of pain is described as aching, tender, Pain began suddenly, 2-3 days ago. Is continuous. Neuro: Level of Consciousness is awake, alert, obeys commands, Oriented to person, place, time, situation, Appropriate for age. Cardiovascular: Capillary refill < 3 seconds Patient's skin is warm and dry. Respiratory: Airway is patent Respiratory effort is even, unlabored, Respiratory pattern is regular, symmetrical. Musculoskeletal: Reports pain in heag and back since falling 2 days ago.. Injury Description: fall. Vital Signs: 13:00 BP 150 / 65; Pulse 65; Resp 19; Pulse Ox 99% on R/A; me1 13:09 BP 136 / 74; Pulse 80; Resp 17; Temp 98.2(TE); Pulse Ox 99% ; Weight 45.36 kg; Height 5 nj1 ft. 3 in. ; Pain 9/10; 14:00 BP 116 / 99; Pulse 65; Resp 20; Pulse Ox 100% on R/A; me1 15:00 BP 118 / 67; Pulse 65; Resp 19; Pulse Ox 99% on R/A; me1 15:30 BP 115 / 54; Pulse 66; Resp 18; Pulse Ox 100% on R/A; me1 15:30 BP 140 / 70; Pulse 67; Resp 18; Pulse Ox 99% on R/A; me1 13:09 Body Mass Index 17.71 (45.36 kg, 160.02 cm) nj1 13:09 Pain Scale: Adult nj1 [place] Coma Score: 16:12 Eye Response: spontaneous(4). Motor Response: obeys commands(6). Verbal Response: milton oriented(5). Total: 15. 16:16 Eye Response: spontaneous(4). Motor Response: obeys commands(6). Verbal Response: milton oriented(5). Total: 15. ED Course: 12:37 Patient arrived in ED. rg4 12:39 Gab Del Real MD is Attending Physician. milton 12:45 No provider procedures requiring assistance completed. me1 12:45 Patient has correct armband on for positive identification. Bed in low position. Call me1 light in reach. Side rails up X 1. Provided Education on: POC. Verbalized understanding. . 13:04 XRAY Chest (1 view) In Process Unspecified. EDMS 13:04 Strep Sent. bc6 13:04 COVID-19/FLU A+B/RSV Sent. bc6 13:05 Basic Metabolic Panel Sent. bc6 13:05 CBC with Diff Sent. bc6 13:05 LFT's Sent. bc6 13:05 Magnesium Sent. bc6 13:05 NT PRO-BNP Sent. bc6 13:05 PT-INR Sent. bc6 13:05 Troponin HS Sent. bc6 13:05 Inserted saline lock: 20 gauge in left antecubital area, using aseptic technique. Blood bc6 collected. 13:12 Triage completed. nj1 13:12 Arm band placed on left wrist. nj1 13:32 Katheryn Almaguer, RN is Primary Nurse. me1 14:23 Urinalysis w/ reflexes Sent. me1 14:33 CT Traumagram (Head C Spine CAP W Con) In Process Unspecified. EDMS 16:18 Jam Bolanos MD is Referral Physician. milton 16:29 Oliver Villalobos MD is Referral Physician. milton 16:50 IV discontinued, intact, bleeding controlled, No redness/swelling at site. Pressure me1 dressing applied. Administered Medications: 14:23 Drug: NS 0.9% IV 1000 ml IV at 1 bolus Per protocol; 1000 mL bolus Route: IV; Rate: 1 me1 bolus; Site: left antecubital; 15:37 Follow up: IV Status: Completed infusion; IV Intake: 1000ml me1 15:34 Drug: Rocephin IV 1 grams IV at per protocol once; Given slow IV push per pharmacy me1 instructions Route: IV; Rate: per protocol; Site: left antecubital; 15:37 Follow up: Response: No adverse reaction; IV Status: Completed infusion me1 15:34 Drug: LevOfloxacin PO 500 mg PO once Route: PO; me1 16:19 Follow up: Response: No adverse reaction me1 Medication: 12:45 VIS not applicable for this client. me1 Intake: 15:37 IV: 1000ml; Total: 1000ml. me1 Outcome: 16:21 Discharge ordered by . milton 16:49 Discharged to home ambulatory, with family, me1 16:49 Condition: stable 16:49 Discharge instructions given to patient, Instructed on discharge instructions, follow up and referral plans. medication usage, Demonstrated understanding of instructions, follow-up care, medications, Prescriptions given X 3, 16:50 Patient left the ED. me1 Signatures: Dispatcher [employer] EDMS Gab Del Real MD MD cha Garcia, Rubi rg4 Brandy Berrios 6 tSephy Patel RN RN ct1 Katheryn Almaguer RN RN me1 Corrections: (The following items were deleted from the chart) 13:12 13:09 Pulse 80bpm; Resp 17bpm; Pulse Ox 99%; Temp 98.2F Temporal; 45.36 kg; Height 5 nj ft. 3 in.; BMI: 17.7; Pain 9/10, Adult; [facility] 15:03 13:09 Chief complaint: Patient states: Pain all over for the last couple of days, me1 states she fell 2 nights ago. [facility] 15:03 13:09 Coronavirus screen: Vaccine status: Patient reports being unvaccinated. nj1 me1
[2023-04-27 17:38] VITALS: TEMP 98.2; O2SAT 99
[2023-04-27 17:50] VITALS: BP 140/70
--- NOTE | 2023-04-29 17:03 | EKG ---
Test Date: 2023-04-27 Test Time: 13:13:22 Cupola Tender: JOHN MEASUREMENT RESULTS: Intervals: Rate: 80 TX: QRSD: 110 QT: 388 QTc: 447 Arion: P: TX: QRS: 104 T: -27 INTERPRETIVE STATEMENTS: Sinus rhythm Rightward axis ST & T wave abnormality, consider inferior ischemia Abnormal ECG Compared to ECG 03/03/2023 07:38:53 Right-axis deviation now present Possible ischemia now present First degree AV block no longer present ST (T wave) deviation still present Electronically Signed On 04-29-23 16:58:36 [employer] by Jam Bolanos
== END ==
LOC: ER 12:35
DX: S00.83XA Contusion of other part of head, initial encounter (principal); S29.012A Strain of muscle and tendon of back wall of thorax, initial encounter; S29.011A Strain of muscle and tendon of front wall of thorax, initial encounter; N39.0 Urinary tract infection, site not specified; K80.80 Other cholelithiasis without obstruction; J44.9 Chronic obstructive pulmonary disease, unspecified; W18.30XA Fall on same level, unspecified, initial encounter; Z79.01 Long term (current) use of anticoagulants; Z11.52 Encounter for screening for COVID-19; I10 Essential (primary) hypertension; Z88.5 Allergy status to narcotic agent
CPT/HCPCS: 96361; 93005; 87070; 87088; 85025; 81001; 87086; 80048; 36415; 83735; 85610; 80076; 87081; 84484; 83880; 0241U; 70450; 72125; 71260; 74177; 71045; 96374; 99284; Q9967; J7030; J0696

== ENCOUNTER 2023-04-30 23:40 | Observation (INO) | payer OTHER ==
[2023-04-30] MEDS ORDERED: ALBUTEROL 2.5 MG/3 ML NEB SOL ONE (23:52)
[2023-04-30] MEDS ORDERED: IPRATROPIUM BROM 0.5MG/2.5ML ONE (23:52)
[2023-05-01] MEDS ORDERED: METHYLPREDNISOLONE 125 MG INJ ONE (00:05)
[2023-05-01 00:11] LABS: Hematocrit 34.1 % (36.0-45.0); MPV 7.9 fL (7.6-11.3); Platelets 212 thou/uL (152-406); RBC Red Blood Cell Count 3.59 M/uL (3.86-4.86)
[2023-05-01 00:28] LABS: SARS-CoV-2 Antigen Rapid Res Negative (Negative)
[2023-05-01 00:47] LABS: ALT/SGPT 29 U/L (13-56); Alkaline Phosphatase 92 U/L (45-117); BUN Blood Urea Nitrogen 9 mg/dL (7-18); Bicarbonate 26 mEq/L (21-32); Bilirubin Total 0.4 mg/dL (0.2-1.0); Glomerular Filtration Rate 53 ml/min (=/>90); Glucose Level 113 mg/dL (74-106); NT PRO-BNP 2504 pg/mL (<125); Sodium Level 137 mEq/L (136-145); Troponin High Sensitivity 19.6 pg/mL (<58.9)
[2023-05-01 00:48] LABS: AST/SGOT 40 U/L (15-37); Bilirubin Direct < 0.1 mg/dL (0-0.2); Bilirubin Indirect, Calculated ND mg/dL (0.2-0.8); Potassium 4.8 mEq/L (3.5-5.1)
[2023-05-01 01:12] LABS: Protime INR 2.83
--- NOTE | 2023-05-01 01:33 | EDPHYS ---
Physician Documentation [facility] Name: Michelle Saavedra Age: 67 yrs Sex: Female : 1955 Arrival Date: 04/30/2023 Time: 23:40 Bed 18 Private MD: ED Physician Ulises Diez HPI: 04/30 23:50 This 67 yrs old Female presents to ER via Unassigned with complaints of ec2 Shortness Of Breath. 23:50 Patient arrives today for evaluation of shortness of breath and chest tightness. States ec2 that she started having symptoms approximately 1 hour prior to arrival. Patient reports no exertional component, no radiating symptoms. Reports history of COPD and A-fib as well as hyperlipidemia. Denies any leg swelling.. Historical: - Allergies: 23:51 Morphine; jb4 - Home Meds: 23:51 Metoprolol Tartrate Oral [Active]; Warfarin Oral [Active]; atorvastatin oral [Active]; jb4 - PMHx: 23:51 Atrial fibrillation; Hypercholesterolemia; Hypertensive disorder; mechanical valve; jb4 COPD; - Immunization history:: Adult Immunizations up to date. - Social history:: Smoking status: Patient denies any tobacco usage or history of. ROS: 23:50 Constitutional: as per hpi ec2 Exam: 23:50 Constitutional: GEN: NAD Head: atraumatic Eyes: EOMI Ears: External ears are ec2 normal. CV: regular rate LUNGS: no respiratory distress, no wheezes, rales, or rhonchi ABD: non-distended SKIN: no evidence of rashes MSK: no evidence of trauma NEURO: moves all extremities equally Vital Signs: 23:50 BP 117 / 84; Pulse 55; Resp 18; Temp 97.7(O); Pulse Ox 99% on R/A; Weight 45.81 kg; jb4 Height 5 ft. 3 in. ; 05/01 00:40 BP 96 / 62; Pulse 78; Resp 16; Pulse Ox 99% on R/A; nw1 02:30 BP 120 / 86; Pulse 74; Resp 17; Pulse Ox 96% on R/A; nw1 04/30 23:50 Body Mass Index 17.89 (45.81 kg, 160.02 cm) jb4 Gray Coma Score: 00:23 Eye Response: spontaneous(4). Motor Response: obeys commands(6). Verbal Response: nw1 oriented(5). Total: 15. MDM: 04/30 23:43 Patient medically screened. ec2 23:50 Data reviewed: vital signs. ED course: Patient arrives today due to concern for chest ec2 tightness and shortness of breath. Examination remarkable for well-appearing nontoxic and appears otherwise in no acute distress. Will obtain lab work, EKG, chest x-ray for further assessment of the patient complaint. Currently considering COPD exacerbation, ACS, low suspicion for PE or dissection.. 05/01 00:23 ED course: EKG independently reviewed and interpreted by me, shows atrial fibrillation, ec2 rate of 64, no acute ST segment elevations, nonconcerning intervals.. 00:33 ED course: CBC is reassuring, flu and COVID testing negative. . ec2 01:04 ED course: Chest x-ray s independently reviewed and interpreted by me, shows no acute ec2 intrathoracic process, does show hyperinflated lungs, does show cardiomegaly.. 01:11 ED course: Metabolic profile shows renal dysfunction, BNP with slight elevation 2500. ec2 Troponin within normal ranges. . 01:26 ED course: Patient is not hypoxic, not working hard to breathe and not tachypneic, on ec2 reassessment patient remains well-appearing and in no acute distress. Suspect component of volume overload given the elevated BNP, will give her Lasix, patient complains of persistent chest pain and difficulty breathing, will admit as well.. 04/30 23:49 Order name: Basic Metabolic Panel; Complete Time: 01:11 ec2 04/30 23:49 Order name: CBC with Diff; Complete Time: 00:33 ec2 04/30 23:49 Order name: NT PRO-BNP; Complete Time: 01:11 ec2 04/30 23:49 Order name: Troponin HS; Complete Time: :11 ec2 04/30 23:49 Order name: SARS RAPID; Complete Time: 00:33 ec2 04/30 23:49 Order name: Influenza Screen (a \T\ B); Complete Time: 00:33 ec2 04/30 23:49 Order name: LFT's; Complete Time: : ec2 05/01 00:03 Order name: PT-INR; Complete Time: 01:12 ec2 05/01 00:03 Order name: Ptt, Activated; Complete Time: 01:12 ec2 05/01 02:02 Order name: Urinalysis w/ reflexes EDMS 05/01 02:03 Order name: Troponin High Sensitivity EDMS 05/01 02:03 Order name: Troponin High Sensitivity EDMS 05/01 02:03 Order name: Troponin High Sensitivity EDMS 05/01 02:03 Order name: Troponin High Sensitivity EDMS 04/30 23:49 Order name: XRAY Chest (1 view) ec2 04/30 23:49 Order name: EKG; Complete Time: 23:50 ec2 04/30 23:49 Order name: Cardiac monitoring; Complete Time: 00:21 ec2 04/30 23:49 Order name: EKG - Nurse/Tech; Complete Time: 00:21 ec2 04/30 23:49 Order name: IV Saline Lock; Complete Time: 00:21 ec2 04/30 23:49 Order name: Labs collected and sent; Complete Time: 00:21 ec2 04/30 23:49 Order name: O2 Per Protocol; Complete Time: 00:21 ec2 04/30 23:49 Order name: O2 Sat Monitoring; Complete Time: 00:43 ec2 Administered Medications: 00:21 Drug: DuoNeb Nebulize (3:1) (2.5 mg - 0.5 mg) 3 ml Nebulizer once Route: Nebulizer; nw1 00:22 Drug: MethylPREDNISolone Sodium Succinate IM 125 mg IM once Route: IM; Site: left nw1 deltoid; 01:56 Drug: Furosemide IVP 40 mg IVP once; give over 2 minutes Route: IVP; Site: left nw1 antecubital; Disposition Summary: 05/01/23 01:33 Hospitalization Ordered Notes: Hospitalization Status: Observation ec2 Provider: Milton Schroeder ec2 Location: Telemetry/MedSurg (observation) ec2 Condition: Stable ec2 Problem: an acute exacerbation ec2 Symptoms: are unchanged ec2 Bed/Room Type: Standard ec2 Room Assignment: 218(05/01/23 02:24) jr12 Diagnosis - Chest pain, unspecified ec2 - Dyspnea, unspecified ec2 Forms: - Medication Reconciliation Form ec2 - SBAR form ec2 - Leadership Thank You Letter ec2 Signatures: Dispatcher [employer] Ferny Canseco, RN RN jb4 Ulises Diez MD MD ec2 Nandini Berry jr12 Mayuri Reyes RN RN nw1 Corrections: (The following items were deleted from the chart) 01:27 01:26 ED course: Patient is not hypoxic, not working hard to breathe and not ec2 tachypneic, on reassessment patient remains well-appearing and in no acute distress. Suspect component of volume overload given the elevated BNP, will have her follow-up with her primary care doctor for further workup and testing.. ec2 01:32 01:26 ED course: Patient is not hypoxic, not working hard to breathe and not ec2 tachypneic, on reassessment patient remains well-appearing and in no acute distress. Suspect component of volume overload given the elevated BNP, will have her follow-up with her primary care doctor for further workup and testing. Additionally possible component of COPD, will continue on steroids.. ec2 01:35 01:04 ED course: Chest x-ray shows no acute intrathoracic process.. ec2 ec2 02:24 01:33 ec2 jr12
--- NOTE | 2023-05-01 01:33 | ER ---
Nurse's Notes [facility] Name: Michelle Saavedra Age: 67 yrs Sex: Female : 1955 Arrival Date: 04/30/2023 Time: 23:40 Bed 18 Private MD: Diagnosis: Chest pain, unspecified;Dyspnea, unspecified Presentation: 04/30 23:50 Chief complaint: Patient states: I started having chest pain and SOB about an hour ago. jb4 It feels like I am gasping for air and just cannot catch my breath. Coronavirus screen: At this time, the client does not indicate any symptoms associated with coronavirus-19. Ebola Screen: No symptoms or risks identified at this time. Initial Sepsis Screen: Does the patient meet any 2 criteria? No. Patient's initial sepsis screen is negative. Does the patient have a suspected source of infection? No. Patient's initial sepsis screen is negative. Risk Assessment: Do you want to hurt yourself or someone else? Patient reports no desire to harm self or others. Onset of symptoms was April 30, 2023. Transition of care: patient was not received from another setting of care. 23:50 Method Of Arrival: Wheelchair jb4 23:50 Acuity: JAKUB 3 jb4 Historical: - Allergies: 23:51 Morphine; jb4 - Home Meds: 23:51 Metoprolol Tartrate Oral [Active]; Warfarin Oral [Active]; atorvastatin oral [Active]; jb4 - PMHx: 23:51 Atrial fibrillation; Hypercholesterolemia; Hypertensive disorder; mechanical valve; jb4 COPD; - Immunization history:: Adult Immunizations up to date. - Social history:: Smoking status: Patient denies any tobacco usage or history of. Screenin/17 00:23 [facility] ED Fall Risk Assessment (Adult) History of falling in the last 3 months, nw1 including since admission No falls in past 3 months (0 pts) Confusion or Disorientation No (0 pts) Intoxicated or Sedated No (0 pts) Impaired Gait No (0 pts) Mobility Assist Device Used No (0 pt) Altered Elimination No (0 pt) Score/Fall Risk Level 0 - 2 = Low Risk Oriented to surroundings, Maintained a safe environment, Educated pt \\T\\ family on fall prevention, incl call for assistance when getting out of bed, Assessed \\T\\ reinforced patient's understanding of fall precautions, Provided non-skid footwear, Hourly rounding (assess needs \\T\\ fall precautionary measures) done. Abuse screen: Denies threats or abuse. Denies injuries from another. Nutritional screening: No deficits noted. Tuberculosis screening: No symptoms or risk factors identified. Assessment: 00:23 Reassessment: Pt into room and states that she has had CP and SOB that started an hour nw1 sloop captain. Pt endorses history of COPD, afib, and states that she needs a pacemaker but refuses because "they will kill you, I know too many people that had them and from them.: Pt teaching given on the benefits of a pacemaker, but pt continues to state how dangerous they are. Pt noted anxious and with negative demeanor with all care given. Pain: Complains of pain in mid-sternal area Pain does not radiate. Cardiovascular: Rhythm is atrial fibrillation. Respiratory: Airway is patent Respiratory effort is even, unlabored, Respiratory pattern is regular, symmetrical, Breath sounds are clear bilaterally. Respiratory: Reports pain with respiration since 1 hour sloop captain. GI: No deficits noted. No signs and/or symptoms were reported involving the gastrointestinal system. : No deficits noted. No signs and/or symptoms were reported regarding the genitourinary system. 00:23 Derm: No deficits noted. No signs and/or symptoms reported regarding the dermatologic nw1 system. Derm: Skin is intact, is healthy with good turgor, Skin is dry, Skin is pink, warm \\T\\ dry. Musculoskeletal: No deficits noted. No signs and/or symptoms reported regarding the musculoskeletal system. Capillary refill < 3 seconds. 01:56 Reassessment: Pt up to restroom at this time. nw Vital Signs: 04/30 23:50 BP 117 / 84; Pulse 55; Resp 18; Temp 97.7(O); Pulse Ox 99% on R/A; Weight 45.81 kg; jb4 Height 5 ft. 3 in. ; 05/01 00:40 BP 96 / 62; Pulse 78; Resp 16; Pulse Ox 99% on R/A; nw1 02:30 BP 120 / 86; Pulse 74; Resp 17; Pulse Ox 96% on R/A; nw1 04/30 23:50 Body Mass Index 17.89 (45.81 kg, 160.02 cm) jb4 Vitals: 00:23 Cardiac Rhythm Assessment Atrial fibrillation W/PVC's. nw1 [place] Coma Score: 00:23 Eye Response: spontaneous(4). Motor Response: obeys commands(6). Verbal Response: nw1 oriented(5). Total: 15. ED Course: 04/30 23:41 Patient arrived in ED. jj6 23:42 Ulises Diez MD is Attending Physician. ec2 23:51 Triage completed. jb4 23:51 Arm band placed on left wrist. jb4 05/01 00:22 Mayuri Reyse, RN is Primary Nurse. nw1 00:22 Ptt, Activated Sent. nw1 00:22 PT-INR Sent. nw1 00:22 LFT's Sent. nw1 00:22 Basic Metabolic Panel Sent. nw1 00:22 NT PRO-BNP Sent. nw 00:22 Troponin HS Sent. nw1 00:23 Placed in gown. Bed in low position. Call light in reach. Side rails up X2. Provided nw1 Education on: POC. Client placed on continuous cardiac and pulse oximetry monitoring. NIBP monitoring applied. patient financial rep on. Pulse ox on. NIBP on. Door closed. Warm blanket given. 00:23 No provider procedures requiring assistance completed. Missed attempt(s): 20 gauge in nw1 left forearm. Bleeding controlled, band aid applied, catheter tip intact. 00:27 XRAY Chest (1 view) In Process Unspecified. EDMS 01:32 Milton Schroeder MD is Hospitalizing Provider. ec2 01:54 Inserted saline lock: 18 gauge in left antecubital area, using aseptic technique. nw1 02:45 Patient admitted, IV remains in place. nw1 Administered Medications: 00:21 Drug: DuoNeb Nebulize (3:1) (2.5 mg - 0.5 mg) 3 ml Nebulizer once Route: Nebulizer; nw1 00:22 Drug: MethylPREDNISolone Sodium Succinate IM 125 mg IM once Route: IM; Site: left nw1 deltoid; 01:56 Drug: Furosemide IVP 40 mg IVP once; give over 2 minutes Route: IVP; Site: left nw1 antecubital; Medication: 00:23 VIS not applicable for this client. nw1 Outcome: 01:33 Decision to Hospitalize by Provider. ec2 02:45 Admitted to Tele accompanied by tech, via wheelchair, room 218, with chart, Report nw1 called to PHILLIP Peterson. All questions asked, answered. 02:45 Condition: stable 02:45 Instructed on the need for admit, NPO until ST eval due to stated difficulty swallowing 02:47 Patient left the ED. nw1 Signatures: Dispatcher [employer] Ferny Canseco RN RN jb4 Rachelle [email or web address] Ulises Diez MD MD ec2 Mayuri Reyes RN RN nw1
[2023-05-01] MEDS ORDERED: FUROSEMIDE 40 MG/4 ML VIAL ONE (01:43)
[2023-05-01] MEDS ORDERED: ONDANSETRON 4 MG/2 ML VIAL IV PRN (01:55)
[2023-05-01] MEDS ORDERED: ACETAMINOPHEN 325 MG TABLET PO PRN (01:55)
--- NOTE | 2023-05-01 02:02 | P.HP ---
Certification for Inpatient Patient admitted to: Observation With expected LOS: <2 Midnights Practitioner: I am a practitioner with admitting privileges, knowledge of patient current condition, hospital course, and medical plan of care. Services: Services provided to patient in accordance with Admission requirements found in Title 42 Section 412.3 of the Code of Federal Regulations Patient History Date of Service: 05/01/23 Reason for admission: Shortness of breath, chest tightness, CHF exacerbation. History of Present Illness: 67-year-old female patient past medical history significant for chronic atrial fibrillation, hypertension, hyperlipidemia, who came to the ED with complaint of worsening shortness of breath. She reports shortness of breath episode started about couple of hours prior to admission. In the ED she was found to have suspicion for worsening CHF on chest x-ray. She was on oral Lasix dose at 20 mg p.o. daily at home. She was given IV Lasix and was admitted for management of suspected CHF exacerbation. She denied overt episode of chest pain but she feels tight in the chest. She denies nausea, vomiting. Allergies No Known Allergies Allergy (Verified 02/20/23 11:06) Home Medications: Alendronate Sodium 70 mg PO EVERY 7TH DAY 12/25/21 Atorvastatin Calcium 80 mg PO BEDTIME 12/25/21 Furosemide [Lasix*] 20 mg PO DAILY 12/25/21 Gabapentin 300 mg PO TID 12/25/21 Pantoprazole [Protonix Tab*] 40 mg PO BID 12/25/21 Zolpidem Tartrate [Ambien*] 10 mg PO BEDTIME 12/25/21 Ezetimibe [Zetia*] 10 mg PO DAILY 08/21/22 Hydrocodone Bit/Acetaminophen [Hydrocodon-Acetaminoph 7.5-325] 1 each PO Q6HP PRN 08/21/22 Amiodarone HCl [Cordarone*] 200 mg PO DAILY 02/20/23 Ensure Enlive 237 ml PO BID can 03/18/23 Ferrous Sulfate [Ferrous Sulfate*] 325 mg PO BID tab 03/18/23 Iron/FA/Vit B-Com W/C [Hemocyte Plus*] 1 tab PO DAILY WITH BREAKFAST #30 tab 03/18/23 Lidocaine 4% Patch [Lidoderm 5% Patch*] 1 patch TOP DAILY pat 03/18/23 Magnesium Oxide [Mag 0X*] 400 mg PO BID #60 tab 03/18/23 Metoprolol Tartrate [Lopressor*] 25 mg PO BID #60 tab 03/18/23 Warfarin Sodium [Coumadin*] 2 mg PO SuMoWeFr@1700 #30 tab 03/18/23 Warfarin Sodium [Coumadin*] 1 mg PO TuTZenya@1700 05/01/23 - Past Medical/Surgical History Diabetic: No -: arthritis back -: Atrial Fibrillation -: Aortic Valve Replacement (Mechanical) -: Thoracic Aortic Aneurysm -: CHF -: HTN -: GERD -: HLD -: Anemia -: HLD -: anemia -: AFIB with RVR -: aortic valve replacement -: tubal ligation -: tubal ligation Psychosocial/ Personal History: Patient lives at home with her children - Family History Brother -: Cancer Notes: heart attack Mother -: Heart disease, Diabetes Notes: of heart attack Father -: Heart disease Notes: of heart attack Sister -: Cancer Notes: sisters x2 - DM. sister x1 - heart attack. sister- lung cancer - Social History Alcohol use: No CD- Drugs: Yes Caffeine use: No Review of Systems General: Unremarkable Eyes: Unremarkable ENT: Unremarkable Respiratory: Shortness of Breath, SOB with Excertion Cardiovascular: Orthopnea, Paroxysmal Noc. Dyspnea Gastrointestinal: Unremarkable Genitourinary: Unremarkable Musculoskeletal: Unremarkable Integumentary: Unremarkable Neurological: Unremarkable Lymphatics: Unremarkable Physical Examination - Physical Exam General: Alert, Oriented x3 HEENT: Atraumatic Neck: Supple Respiratory: Normal air movement Cardiovascular: Regular rate/rhythm, Normal S1 S2 Gastrointestinal: Soft and benign Musculoskeletal: No swelling Neurological: Normal speech - Studies Laboratory Data (last 24 hrs) 05/01/23 05/01/23 05/01/23 00:02 00:02 00:02 WBC 6.20 Hgb 11.3 L Hct 34.1 L Plt Count 212 PT 30.2 H INR 2.83 APTT 35.5 Sodium 137 Potassium 4.8 BUN 9 Creatinine 1.12 H Glucose 113 H Total Bilirubin 0.4 AST 40 H ALT 29 Alkaline Phosphatase 92 Microbiology Data (last 24 hrs): 05/01/23 00:02 Nasopharnyx Influenza Type A Antigen Screen - Final 05/01/23 00:02 Nasopharnyx Influenza Type B Antigen Screen - Final Assessment and Plan - Plan CHF exacerbation: Clinical presentation is concerning. Empiric therapy with Lasix IV has been started. Put on 1.2 L fluid restriction. Continue low-sodium diet. Will have cardiology evaluate. we will obtain echocardiogram to assess cardiac function Hypertension: We will monitor vital signs per unit protocol and continue outpatient antihypertensive medication. Chronic atrial fibrillation: Will continue outpatient rate control medication and anticoagulation with warfarin. Hyperlipidemia: We will continue statin therapy. Prophylaxis: Warfarin to be continued for DVT prophylaxis and A-fib a nticoagulation CODE STATUS: Full code Disposition: We will treat her CHF exacerbation and workup ACS and discharge her when she is deemed clinically stable. - Advance Directives Does patient have a Living Will: No Does patient have a Durable POA for Healthcare: No
[2023-05-01 04:09] VITALS: O2SAT 94; BMI 18.8
[2023-05-01] MEDS ORDERED: EZETIMIBE 10 MG TAB PO SCH (09:00)
[2023-05-01] MEDS: METOPROLOL TAR 25 MG TAB PO SCH ×2 (09:00→10:54)
[2023-05-01] MEDS ORDERED: PANTOPRAZOLE 40MG TABLET PO SCH (09:00)
[2023-05-01] MEDS ORDERED: ENOXAPARIN 40 MG/0.4 ML SQ SCH (09:00)
[2023-05-01] MEDS: FUROSEMIDE 20 MG/ 2ML VIAL IV SCH ×2 (09:00→10:54)
[2023-05-01] MEDS ORDERED: AMIODARONE HCL 200 MG TAB PO SCH (09:00)
[2023-05-01] MEDS: GABAPENTIN 300 MG CAP PO SCH ×2 (10:54→14:00)
[2023-05-01] MEDS ORDERED: FENTANYL CITR 100 MCG/2 ML IV PRN (12:06)
[2023-05-01] MEDS ORDERED: HYDROCODONE/APAP 10/325 TAB PO PRN (12:06)
[2023-05-01] MEDS ORDERED: HYDROMORPHONE HCL 0.5 MG/0.5 ML INJ IV PRN (15:12)
[2023-05-01] MEDS ORDERED: HYDROMORPHONE HCL 0.5 MG/0.5 ML INJ IV ONE (16:57)
[2023-05-01] MEDS ORDERED: WARFARIN SODIUM 2 MG TAB PO SCH (17:00)
[2023-05-01 17:35] VITALS: BP 108/62; TEMP 97.5
--- NOTE | 2023-05-01 18:36 | P.DS ---
Admission Date: 05/01/23 Discharge Date: 05/01/23 Disposition: ROUTINE DISCHARGE Discharge Condition: GOOD Reason for Admission: Shortness of breath, chest tightness, CHF exacerbation. Hospital Course: Patient is a 67-year-old female with a past medical history significant for atrial fibrillation, hyperlipidemia, hypertension, COPD who presents with chest pain and shortness of breath. Patient also reported generalized pain worse in t he back and in the right hip. Patient reported that pain is chronic in nature. Patient was admitted to the hospital for further workup. Serial troponins were negative. Patient was placed on IV Lasix on admission and patient's shortness of breath improved over time. Patient has had previous workup for chest pain in previous admissions. Patient's symptoms improved over time. Patient was deemed stable to be discharged by attending MD. Patient was instructed to follow-up with her PCP and photo lab manager. Patient verbalized understanding of discharge instructions and was discharged in stable condition. Vital Signs/Physical Exam: Temp Pulse Resp BP Pulse Ox 97.5 F 85 16 108/62 96 05/01/23 16:00 05/01/23 16:00 05/01/23 16:00 05/01/23 16:00 05/01/23 16:00 General: Alert, In no apparent distress, Oriented x3, Cooperative HEENT: Atraumatic, PERRLA, EOMI Neck: Supple, JVD not distended Respiratory: Clear to auscultation bilaterally, Normal air movement Cardiovascular: No edema, Normal S1 S2, Irregular heart rate/rhythm Capillary refill: <2 Seconds Gastrointestinal: Normal bowel sounds, Soft and benign, No tenderness Musculoskeletal: No clubbing, No swelling, No tenderness Integumentary: No rashes, No significant lesion Neurological: Normal speech, Normal tone, Normal affect Lymphatics: No axilla or inguinal lymphadenopathy Laboratory Data at Discharge: WBC 6.20 thou/uL (4.3-10.9) 05/01/23 00:02 Hgb 11.3 g/dL (12.0-15.0) L 05/01/23 00:02 Hct 34.1 % (36.0-45.0) L 05/01/23 00:02 Plt Count 212 thou/uL (152-406) 05/01/23 00:02 PT 30.2 SECONDS (9.5-12.5) H 05/01/23 00:02 INR 2.83 05/01/23 00:02 APTT 35.5 SECONDS (24.3-36.9) 05/01/23 00:02 Sodium 137 mEq/L (136-145) 05/01/23 00:02 Potassium 4.8 mEq/L (3.5-5.1) 05/01/23 00:02 BUN 9 mg/dL (7-18) 05/01/23 00:02 Creatinine 1.12 mg/dL (0.55-1.02) H 05/01/23 00:02 Glucose 113 mg/dL (74-106) H 05/01/23 00:02 Total Bilirubin 0.4 mg/dL (0.2-1.0) 05/01/23 00:02 AST 40 U/L (15-37) H 05/01/23 00:02 ALT 29 U/L (13-56) 05/01/23 00:02 Alkaline Phosphatase 92 U/L (45-117) 05/01/23 00:02 Home Medications: Alendronate Sodium 70 mg PO EVERY 7TH DAY 12/25/21 Atorvastatin Calcium 80 mg PO BEDTIME 12/25/21 Furosemide [Lasix*] 20 mg PO DAILY 12/25/21 Gabapentin 300 mg PO TID 12/25/21 Pantoprazole [Protonix Tab*] 40 mg PO BID 12/25/21 Zolpidem Tartrate [Ambien*] 10 mg PO BEDTIME 12/25/21 Ezetimibe [Zetia*] 10 mg PO DAILY 08/21/22 Hydrocodone Bit/Acetaminophen [Hydrocodon-Acetaminoph 7.5-325] 1 each PO Q6HP PRN 08/21/22 Amiodarone HCl [Cordarone*] 200 mg PO DAILY 02/20/23 Ensure Enlive 237 ml PO BID can 03/18/23 Ferrous Sulfate [Ferrous Sulfate*] 325 mg PO BID tab 03/18/23 Iron/FA/Vit B-Com W/C [Hemocyte Plus*] 1 tab PO DAILY WITH BREAKFAST #30 tab 03/18/23 Lidocaine 4% Patch [Lidoderm 5% Patch*] 1 patch TOP DAILY pat 03/18/23 Magnesium Oxide [Mag 0X*] 400 mg PO BID #60 tab 03/18/23 Metoprolol Tartrate [Lopressor*] 25 mg PO BID #60 tab 03/18/23 Warfarin Sodium [Coumadin*] 2 mg PO SuMoWeFr@1700 #30 tab 03/18/23 Hydrocodone 10/APAP 325 [[place] 10/325*] 1 tab PO Q6H PRN #30 tab 05/01/23 Warfarin Sodium [Coumadin*] 1 mg PO TuThSa@1700 05/01/23 New Medications: Hydrocodone 10/APAP 325 [[place] 10/325*] 1 tab PO Q6H PRN #30 tab PRN Reason: Pain Scale 5-7 (Moderate) Physician Discharge Instructions: -DC IV and DC home -Follow-up with PCP in 1 to 2 weeks -Follow-up with Cardiology in 1 to 2 weeks -Please call Dr. Sabillon at [phone] if any questions regarding hospital stay -Please call nursing station at [phone] if any nursing or medication questions -Return to the emergency room if symptoms worsen Diet: AHA Activity: Fall precautions Followup: Negro Roa [Primary Care Provider] - 1-2 Weeks Jam Bolanos MD [ACTIVE - CAN ADMIT] - 1-2 Weeks Physician Review: Patient Assessed, Agree with Above Assessment and Plan
--- NOTE | 2023-05-01 19:57 | CON ---
Date of Consultation: 05/01/2023 Reason For Consultation: Chest pain. History Of Present Illness: 67-year-old female, history of AFib, hypertension, dyslipidemia, present ed with shortness of breath, upper respiratory tract infection symptoms, cough and congestion and has been having some chest pain, it is sharp in nature, not related to exertion. No exertional chest pa in. Cardiac enzymes have been negative. Past Medical History: As outlined above in the HPI. Medications: Refer to reconciliation sheet for detailed list. Allergies: NO KNOWN DRUG ALLERGIES. Family History: No premature coronary artery disease or cancer. Social History: She does not smoke or drink. Does not use any drugs. Review of Systems: All systems reviewed and they were negative except as mentioned in the HPI. Physical Examination: Vital Signs: Reviewed. Head and Neck: Pupils are equal, reactive to light. Intact eye movements. No JVD. No cervical lym phadenopathy. Neck is supple. Thyroid is not enlarged. Lungs: Clear to auscultation bilaterally. No rhonchi, wheezing, or crackles. No accessory muscle u se. Heart: Irregular. No extra sounds. Abdomen: Soft, nontender. Bowel sounds positive. No organomegaly. No masses or hernia. No rigidi ty or rebound. Extremities: No edema, clubbing, or cyanosis. Intact pulses. Skin: No rash or nodule. Neurologic: Alert, awake, oriented x3. No acute focal deficits appreciated. Lymph Nodes: No cervical or axillary lymphadenopathy. Investigations: Cardiac enzymes x3 are negative. BUN 9, creatinine 1.1, and NT-proBNP is 2504. Assessment And Recommendations: 1.Chest pain. It is atypical. Cardiac enzymes are negative. Recommend further evaluation with str ess test. She sees a surgical coordinator. I recommend that she follows up postdischarge to obtain a stress test. 2.Elevated NT-proBNP and she had an echo in November. Normal ejection fraction and normally function mechanical aortic prosthesis, probably has a diastolic heart failure. She appears to eagerly make to follow up with her surgical coordinator postdischarge. Cardiology will sign off on the case. SR/MODL Voice ID: [id number] Report ID: [id number]
[2023-05-01] MEDS ORDERED: FERROUS SULFATE 325 MG TAB PO SCH (21:00)
[2023-05-01] MEDS ORDERED: ATORVASTATIN 40 MG TAB PO SCH (21:00)
[2023-05-01] MEDS ORDERED: MAGNESIUM OXIDE 400 MG TAB PO SCH (21:00)
[2023-05-01] MEDS ORDERED: ZOLPIDEM TARTRATE 10 MG TABLET PO SCH (21:00)
[2023-05-01] MEDS ORDERED: ENSURE ENLIVE 237 ML CAN PO SCH (21:00)
[2023-05-02] MEDS ORDERED: FE SULF/FA/VIT B COMP & C TAB PO SCH (08:00)
[2023-05-02] MEDS ORDERED: LIDOCAINE 4% PATCH TOP SCH (09:00)
--- NOTE | 2023-05-02 13:10 | RAD REPORT ---
EXAM DESCRIPTION: RAD - Chest Single View - 05/01/2023 12:25 am CLINICAL HISTORY: 67 years Female SOB TECHNIQUE: One view of the chest is compared to prior dated 12/28/2022 . FINDINGS: Stable prior median sternotomy wires. Diffuse aortic atherosclerosis. Stable cardiomediast inal silhouette. The lungs are clear without focal consolidation, effusion, or pneumothorax. No acute osseous abnormal ities. IMPRESSION: No acute cardiopulmonary abnormalities. Stable exam. Electronically signed by: Gwendolyn Mccarthy MD 05/01/2023 12:43 AM EP TECHNOLOGIST Due to temporary technical issues with the PACS/Fluency reporting system, reports are being signed by the in house radiologist without review as a courtesy to ensure prompt reporting. The interpreting r adiologist is fully responsible for the content of the report.
[2023-05-02] MEDS ORDERED: WARFARIN SODIUM 1 MG TAB PO SCH (17:00)
== END 2023-05-01 18:25 | disposition home or self-care (01) ==
LOC: ER 23:40 → 2ND 05-01 01:55
PROVIDERS: ADMIT Internal Medicine Nephrology; ATTEND Hospitalist
DX: R07.9 Chest pain, unspecified (principal); R79.89 Other specified abnormal findings of blood chemistry; I10 Essential (primary) hypertension; I48.11 Longstanding persistent atrial fibrillation; E78.5 Hyperlipidemia, unspecified; M25.551 Pain in right hip; M54.9 Dorsalgia, unspecified; Z79.01 Long term (current) use of anticoagulants; Z88.5 Allergy status to narcotic agent; Z11.52 Encounter for screening for COVID-19
CPT/HCPCS: 36415; 71045; 80048; 80076; 83880; 84484; 85025; 85610; 85730; 87804; 87811; 93005; G0378; J1940; J2930; J3010; J7613; J7644

== ENCOUNTER 2023-08-14 20:48 | Emergency (ER) | payer OTHER ==
[2023-08-14] MEDS ORDERED: HYDROCODONE/APAP 7.5/325 MG TAB ONE (21:18)
--- NOTE | 2023-08-14 22:07 | RAD REPORT ---
EXAM DESCRIPTION: RAD - Knee Right 3 View - 08/14/2023 10:00 pm CLINICAL HISTORY: PAIN COMPARISON: No comparisons FINDINGS: Mild diffuse osteopenia is seen. No fracture or dislocation. Mild atherosclerosis. Mild an terior soft tissue swelling.
--- NOTE | 2023-08-14 22:08 | RAD REPORT ---
EXAM DESCRIPTION: RAD - Hip Left 2 View - 08/14/2023 10:00 pm CLINICAL HISTORY: PAIN COMPARISON: No comparisons FINDINGS: Mild osteoarthritis left hip. No fracture, dislocation or AVN.
--- NOTE | 2023-08-14 22:09 | RAD REPORT ---
EXAM DESCRIPTION: RAD - Hand Left 3 View - 08/14/2023 10:00 pm CLINICAL HISTORY: PAIN COMPARISON: No comparisons FINDINGS: Diffuse osteopenia. Moderate radiocarpal arthritic changes. No acute fracture or dislocati on.
--- NOTE | 2023-08-14 22:10 | RAD REPORT ---
EXAM DESCRIPTION: CT - CTHCSPWOC - 08/14/2023 10:03 pm CLINICAL HISTORY: Trauma, head and neck injury. TRAUMA COMPARISON: Head C Spine Mpr Wo Con dated 12/11/2022; Neck Angio dated 05/17/2022; Head C Spine Mpr Wo Con dated 05/13/2022; C Spine Wo Con dated 03/07/2020 TECHNIQUE: Axial 5 mm thick images of the head were obtained. Axial 2 mm thick images of the cervical spine were obtained with sagittal and coronal reconstruction images generated and reviewed. All CT scans are performed using dose optimization technique as appropriate and may include automated exposure control or mA/KV adjustment according to patient size. FINDINGS: CT HEAD WITHOUT CONTRAST: No acute hemorrhage, hydrocephalus or extra-axial collection is identified.No areas of brain edema or midline shift. The paranasal sinuses and mastoids are clear.The calvarium is intact. CT CERVICAL SPINE WITHOUT CONTRAST: No fracture or subluxation.Mild mid and lower cervical degenerative changes.No prevertebral soft tiss ues swelling is identified. Bilateral carotid atherosclerosis. IMPRESSION: No acute intracranial or cervical spine findings.
--- NOTE | 2023-08-14 22:16 | EDPHYS ---
Physician Documentation [facility] Name: Michelle Saavedra Age: 68 yrs Sex: Female : 1955 Arrival Date: 08/14/2023 Time: 20:48 Bed 4 Private MD: ED Physician Juan Yoder HPI: 08/13 21:30 This 68 yrs old Female presents to ER via Wheelchair with complaints of Fall sb4 Injury, Hurts All Over, Headache. 21:30 Details of fall: The patient fell from an upright position, while walking, and struck a sb4 carpeted surface. Onset: The symptoms/episode began/occurred last night. Associated injuries: The patient sustained injury to the head, right cazares and left leg and left hand. The patient has not experienced similar symptoms in the past. The patient has not recently seen a physician. Historical: - Allergies: 21:03 No Known Allergies; jj7 - PMHx: 21:03 Atrial fibrillation; COPD; Hypercholesterolemia; Hypertensive disorder; mechanical jj7 valve; - PSHx: 21:03 MECHANICAL VALVE (mechanical valve); RIGHT HIP REPLACEMENT (mechanical valve); jj7 - Immunization history:: Client reports having NOT received the Covid vaccine. Pneumococcal vaccine is up to date, Flu vaccine is up to date. - Infectious Disease History:: Denies. - Social history:: Smoking status: Patient denies any tobacco usage or history of. Patient/guardian denies using alcohol, street drugs, IV drugs. ROS: 21:30 Constitutional: Negative for fever, chills, and weight loss, sb4 21:30 MS/extremity: Positive for injury or acute deformity, pain, per HPI, 21:30 All other systems are negative, Exam: 21:31 Constitutional: This is a well developed, well nourished patient who is awake, alert, sb4 and in no acute distress. 21:31 Head/Face: Normocephalic, atraumatic. Eyes: Extra-ocular motions intact. Periorbital areas with no swelling, redness, or edema. ENT: Mucous membranes moist. 21:31 Skin: injury, bruising right cazares, left hip, Vital Signs: 21:03 BP 135 / 97; Pulse 50; Resp 16; Temp 97.6; Pulse Ox 98% ; Weight 46.27 kg; Height 5 ft. jj7 3 in. ; Pain 9/10; 22:16 BP 157 / 54; Pulse 46; Resp 16; Pulse Ox 97% on R/A; cm10 21:03 Body Mass Index 18.07 (46.27 kg, 160.02 cm) [facility] 21:03 Pain Scale: Adult j MDM: 21:10 Patient medically screened. sb4 21:31 Data reviewed: vital signs, nurses notes. sb4 08/13 21:16 Order name: Head C Spine MPR Wo Con CT; Complete Time: 22:14 sb4 08/13 21:16 Order name: Hip Left 2 View XRAY; Complete Time: 22:14 sb4 08/13 21:16 Order name: Knee Right 3 View XRAY; Complete Time: 22:14 sb4 08/13 21:16 Order name: Hand Left 3 View XRAY; Complete Time: 22:14 sb4 Administered Medications: 21:20 Drug: Hydrocodone-Acetaminophen PO (7.5 mg-325 mg) 2 tabs PO once Route: PO; cm10 22:00 Follow up: Response: No adverse reaction bm8 Disposition: 23:19 Co-signature as Attending Physician, Juan Yoder MD I agree with the assessment sp4 and plan of care. I reviewed the patient's care provided by the Advanced Practice Provider and agree with the diagnosis and treatment plan. Disposition Summary: 08/14/23 22:15 Discharge Ordered Notes: Location: Home sb4 Problem: new sb4 Symptoms: have improved sb4 Condition: Stable sb4 Diagnosis - Fall on same level, unspecified sb4 Followup: sb4 - With: Gilmer Quispe MD - When: Tomorrow - Reason: Recheck today's complaints, Re-evaluation by your physician Discharge Instructions: - Discharge Summary Sheet sb4 - Chronic Pain, Adult sb4 - Fall Prevention in the Home, Adult, [id number] sb4 Forms: - Prescription Opioid Use sb4 - Patient Portal Instructions sb4 - Leadership Thank You Letter sb4 Signatures: Dispatcher [employer] Fausto Poole RN RN jj7 Lucila Shields PA-C PA-C sb4 Juan Yoder MD MD sp4 Tamie Villalobos RN RN cm10 Darinel Chavez RN bm8 Corrections: (The following items were deleted from the chart) 21:04 21:03 Allergies: Morphine; jj7 jj7 21:16 21:16 Hip Left 2 View+RAD.RAD.BRZ ordered. EDMS EDMS 21:16 21:16 Knee Right 3 View+RAD.RAD.BRZ ordered. EDMS EDMS 21:16 21:16 Hand Left 3 View+RAD.RAD.BRZ ordered. EDMS EDMS
--- NOTE | 2023-08-14 22:16 | ER ---
Nurse's Notes [facility] Name: Michelle Saavedra Age: 68 yrs Sex: Female : 1955 Arrival Date: 08/14/2023 Time: 20:48 Bed 4 Private MD: Diagnosis: Fall on same level, unspecified Presentation: 08/13 20:59 Chief complaint: Patient states: TRIPPED YESTERDAY WHILE WALKING TO THE BATHROOM. FELL jj7 FROM A STANDING POSITION ONTO THE TILE FLOOR. NOW HEAD, LEFT HAND, LEFT HIP AND RIGHT LEG PAIN. Care prior to arrival: None. 20:59 Acuity: JAKUB 4 jj7 20:59 Method Of Arrival: Wheelchair j7 22:18 Coronavirus screen: Client denies travel out of the [place] in the last 14 days. At this cm10 time, the client does not indicate any symptoms associated with coronavirus-19. Ebola Screen: Patient denies travel to an Ebola-affected area in the 21 days before illness onset. No symptoms or risks identified at this time. Initial Sepsis Screen: Does the patient meet any 2 criteria? No. Patient's initial sepsis screen is negative. Does the patient have a suspected source of infection? No. Patient's initial sepsis screen is negative. Risk Assessment: Do you want to hurt yourself or someone else? Patient reports no desire to harm self or others. Onset of symptoms was August 13, 2023. Triage Assessment: 21:13 General: Appears in no apparent distress. comfortable, Behavior is calm, cooperative. cm10 Pain: Complains of pain in right leg and right cazares and left leg and left hand and head. Neuro: No deficits noted. Level of Consciousness is awake, alert, obeys commands, Oriented to person, place, time, situation, Reports headache. Respiratory: No deficits noted. Airway is patent Respiratory effort is even, unlabored, Respiratory pattern is regular, symmetrical. Derm: No deficits noted. Bruising that is dark purple. Musculoskeletal: Bruising noted to patient's right leg. Historical: - Allergies: 21:03 No Known Allergies; jj7 - PMHx: 21:03 Atrial fibrillation; COPD; Hypercholesterolemia; Hypertensive disorder; mechanical jj7 valve; - PSHx: 21:03 MECHANICAL VALVE (mechanical valve); RIGHT HIP REPLACEMENT (mechanical valve); jj7 - Immunization history:: Client reports having NOT received the Covid vaccine. Pneumococcal vaccine is up to date, Flu vaccine is up to date. - Infectious Disease History:: Denies. - Social history:: Smoking status: Patient denies any tobacco usage or history of. Patient/guardian denies using alcohol, street drugs, IV drugs. Screenin:14 [facility] ED Fall Risk Assessment (Adult) History of falling in the last 3 months, cm10 including since admission Yes- single mechanical fall (1 pt) Confusion or Disorientation No (0 pts) Intoxicated or Sedated No (0 pts) Impaired Gait Yes (1 pt) Mobility Assist Device Used Yes (1 pt) Altered Elimination No (0 pt) Score/Fall Risk Level 3 or more points = High Risk Oriented to surroundings, Maintained a safe environment, Educated pt \T\ family on fall prevention, incl call for assistance when getting out of bed, Hourly rounding (assess needs \T\ fall precautionary measures) done, Used ambulatory aids as needed (educated on \T\ assisted with). Abuse screen: Denies threats or abuse. Denies injuries from another. Nutritional screening: No deficits noted. Tuberculosis screening: No symptoms or risk factors identified. Assessment: 20:59 General: Appears in no apparent distress. comfortable, unkempt, Behavior is calm, jj7 cooperative, appropriate for age. Pain: Complains of pain in head, left hand and left leg. Neuro: No deficits noted. Derm: Bruising that is dark purple, on right cazares. Vital Signs: 21:03 BP 135 / 97; Pulse 50; Resp 16; Temp 97.6; Pulse Ox 98% ; Weight 46.27 kg; Height 5 ft. jj7 3 in. ; Pain 9/10; 22:16 BP 157 / 54; Pulse 46; Resp 16; Pulse Ox 97% on R/A; cm10 21:03 Body Mass Index 18.07 (46.27 kg, 160.02 cm) jj7 21:03 Pain Scale: Adult jj7 ED Course: 20:52 Patient arrived in ED. ra3 21:00 Lucila Shields PA-C is PHCP. sb4 21:01 Juan Yoder MD is Attending Physician. sb4 21:01 Triage completed. jj7 21:03 Arm band placed on left wrist. jj7 21:09 Darinel Chavez, RN is Primary Nurse. bm8 21:15 Patient has correct armband on for positive identification. Bed in low position. Call cm10 light in reach. Side rails up X2. Provided Education on: ER process and procedures.. 22:01 Hip Left 2 View XRAY In Process Unspecified. EDMS 22:02 Head C Spine MPR Wo Con CT In Process Unspecified. EDMS 22:02 Knee Right 3 View XRAY In Process Unspecified. EDMS 22:02 Hand Left 3 View XRAY In Process Unspecified. EDMS 22:15 Gilmer Quispe MD is Referral Physician. sb4 22:17 No provider procedures requiring assistance completed. Patient did not have IV access cm10 during this emergency room visit. Administered Medications: 21:20 Drug: Hydrocodone-Acetaminophen PO (7.5 mg-325 mg) 2 tabs PO once Route: PO; cm10 22:00 Follow up: Response: No adverse reaction bm8 Medication: 21:14 VIS not applicable for this client. cm10 Outcome: 22:15 Discharge ordered by MD. sb4 22:17 Discharged to home via wheelchair, cm10 22:17 Condition: good 22:17 Discharge instructions given to patient, Instructed on discharge instructions, follow up and referral plans. Demonstrated understanding of instructions, follow-up care, 22:29 Patient left the ED. cm10 Signatures: Dispatcher [employer] Fausto Poole RN RN alexjLucila Barraza, PA-C PA-C sb4 Tamie Villalobos RN RN cm10 Olena Malagon ra3 Darinel Chavez, RN RN bm8 Corrections: (The following items were deleted from the chart) 21:04 21:03 Allergies: Morphine; jj7 jj7
[2023-08-14 22:57] VITALS: BP 157/54; TEMP 97.6; O2SAT 97
== END 2023-08-14 22:29 | disposition home or self-care (01) ==
LOC: ER 20:48
DX: R51.9 Headache, unspecified (principal); S80.11XA Contusion of right lower leg, initial encounter; S70.02XA Contusion of left hip, initial encounter; W18.30XA Fall on same level, unspecified, initial encounter
CPT/HCPCS: 70450; 72125; 99283

== ENCOUNTER 2023-09-11 20:35 | Emergency (ER) | payer OTHER ==
[2023-09-11 21:52] LABS: Absolute Basophils 0.1 K/uL (0-0.5); Absolute Eosinophils 0.2 K/uL (0-0.5); Absolute Lymphocytes (CBC) 0.6 K/uL (0.7-4.9); Absolute Monocytes 0.8 K/uL (0.1-1.3); Absolute Neutrophil 5.4 K/uL (1.8-8.0); Basophils % 0.9 % (0-1.3); Eosinophils % 3.3 % (0-4.4); Hematocrit 28.9 % (36.0-45.0); Hemoglobin 9.3 g/dL (12.0-15.0); Lymphocytes % 8.9 % (15.3-44.8); MCH 31.4 pg (27.0-35.0); MCV 98.1 fL (80-100); MPV 8.4 fL (7.6-11.3); Monocytes % 11.1 % (3.3-12.3); Neutrophils % 75.8 % (41.7-73.7); Platelets 203 thou/uL (152-406); RBC Red Blood Cell Count 2.95 M/uL (3.86-4.86); Red Cell Distribution Width 16.3 % (12.1-15.2)
[2023-09-11 21:57] LABS: PT Prothrombin Time 23.3 SECONDS (9.5-12.5); Protime INR 2.17
--- NOTE | 2023-09-11 22:16 | RAD REPORT ---
EXAM DESCRIPTION: Phyllis Single View09/11/2023 9:57 pm CLINICAL HISTORY: Chest pain COMPARISON: April 1999 FINDINGS: The lungs appear clear of acute infiltrate. The heart is moderately enlarged. Postsurgical changes involve the chest. IMPRESSION: No acute abnormalities displayed
[2023-09-11 22:21] LABS: Albumin 3.3 g/dL (3.4-5.0); Albumin/Globulin Ratio 0.9 (1.1-1.8); Anion Gap 6.6 mEq/L (5.0-15.0); Bilirubin Direct 0.2 mg/dL (0-0.2); Bilirubin Indirect, Calculated 0.3 mg/dL (0.2-0.8); Bilirubin Total 0.5 mg/dL (0.2-1.0); Globulin 3.8 g/dL (2.3-3.5); Magnesium 2.4 mg/dL (1.6-2.4); Potassium 3.6 mEq/L (3.5-5.1); Protein, Total 7.1 g/dL (6.4-8.2); Troponin High Sensitivity 10.8 pg/mL (<58.9)
[2023-09-11] MEDS ORDERED: NA CHLORIDE 0.9% 1,000 ML ONE (22:56)
[2023-09-11] MEDS ORDERED: ONDANSETRON 4 MG/2 ML VIAL ONE (23:32)
[2023-09-11] MEDS ORDERED: FENTANYL CITR 100 MCG/2 ML ONE (23:32)
--- NOTE | 2023-09-12 01:08 | ER ---
Nurse's Notes [facility] Name: Michelle Saavedra Age: 68 yrs Sex: Female : 1955 Arrival Date: 09/11/2023 Time: 20:35 Bed 7 Private MD: Diagnosis: Abdominal pain, Generalized;Chest pain, unspecified;Other chronic pain Presentation: 09/10 20:52 Chief complaint: Patient states: Left sided chest pain that does not radiate onset this cm10 morning. Pt reports that she is also having abdominal pain. Pt describes the pain as throbbing. Coronavirus screen: Client denies travel out of the [place] in the last 14 days. At this time, the client does not indicate any symptoms associated with coronavirus-19. Ebola Screen: Patient denies travel to an Ebola-affected area in the 21 days before illness onset. No symptoms or risks identified at this time. Initial Sepsis Screen: Does the patient meet any 2 criteria? No. Patient's initial sepsis screen is negative. Does the patient have a suspected source of infection? No. Patient's initial sepsis screen is negative. Risk Assessment: Do you want to hurt yourself or someone else? Patient reports no desire to harm self or others. Onset of symptoms was September 11, 2023. 20:52 Method Of Arrival: Wheelchair cm10 20:52 Acuity: JAKUB 2 cm10 Triage Assessment: 20:54 General: Appears in no apparent distress. comfortable, Behavior is calm, cooperative. cm10 Pain: Complains of pain in chest Pain does not radiate. Pain currently is 8 out of 10 on a pain scale. Quality of pain is described as throbbing, Pain began suddenly. Neuro: No deficits noted. Level of Consciousness is awake, alert, obeys commands, Oriented to person, place, time, situation, Appropriate for age. 23:00 Headache History: The patient has had previous headaches and this one is similar to jw7 previous episodes. Pain: Also complains of no other associated symptoms. Historical: - Allergies: 20:54 No Known Allergies; cm10 - PMHx: 20:54 Atrial fibrillation; COPD; Hypercholesterolemia; Hypertensive disorder; mechanical cm10 valve; - PSHx: 20:54 mechanical valve (ic); Right hip replacement (ic); cm10 - Immunization history:: Adult Immunizations up to date. - Infectious Disease History:: Denies. - Social history:: Smoking status: Patient denies any tobacco usage or history of. Screenin:00 [facility] ED Fall Risk Assessment (Adult) History of falling in the last 3 months, jw7 including since admission No falls in past 3 months (0 pts) Confusion or Disorientation No (0 pts) Intoxicated or Sedated No (0 pts) Impaired Gait No (0 pts) Mobility Assist Device Used No (0 pt) Altered Elimination No (0 pt) Score/Fall Risk Level 0 - 2 = Low Risk Oriented to surroundings, Maintained a safe environment, Educated pt \T\ family on fall prevention, incl call for assistance when getting out of bed. Abuse screen: Denies threats or abuse. Denies injuries from another. Nutritional screening: No deficits noted. Tuberculosis screening: No symptoms or risk factors identified. Assessment: 23:00 General: Appears in no apparent distress. comfortable, Behavior is calm, cooperative, jw7 appropriate for age. Pain: Complains of pain in chest Pain does not radiate. Pain currently is 8 out of 10 on a pain scale. Quality of pain is described as throbbing, Pain began suddenly, Is continuous. 23:00 Neuro: Level of Consciousness is awake, alert, obeys commands, Oriented to person, jw7 place, time, situation, Appropriate for age. Cardiovascular: Heart tones S1 S2 present Capillary refill < 3 seconds Clubbing of nail beds is absent JVD is absent Patient's skin is warm and dry. Rhythm is sinus rhythm. Respiratory: Airway is patent Trachea midline Respiratory effort is even, unlabored, Respiratory pattern is regular, symmetrical, Breath sounds are clear bilaterally. GI: Abdomen is flat, Bowel sounds present X 4 quads. Abd is soft and non tender X 4 quads. : No deficits noted. No signs and/or symptoms were reported regarding the genitourinary system. EENT: No deficits noted. No signs and/or symptoms were reported regarding the EENT system. Derm: Skin is intact, is healthy with good turgor, Skin is dry, Skin is normal, Skin temperature is warm. Musculoskeletal: Circulation, motion, and sensation intact. Range of motion: intact in all extremities. 09/11 00:00 Reassessment: Patient appears in no apparent distress at this time. No changes from jw7 previously documented assessment. Patient and/or family updated on plan of care and expected duration. Pain level reassessed. Patient is alert, oriented x 3, equal unlabored respirations, skin warm/dry/pink. 01:00 Reassessment: Patient appears in no apparent distress at this time. Patient and/or jw7 family updated on plan of care and expected duration. Pain level reassessed. Patient is alert, oriented x 3, equal unlabored respirations, skin warm/dry/pink. Patient states feeling better. Patient states symptoms have improved. Vital Signs: 09/10 20:52 BP 146 / 47; Pulse 53; Resp 18; Temp 97.3(TE); Pulse Ox 94% on R/A; Weight 46.27 kg; cm10 Height 5 ft. 3 in. ; Pain 8/10; 22:50 BP 92 / 60; Pulse 52; Resp 16; Pulse Ox 99% ; jj7 23:30 BP 95 / 46; Pulse 54; Resp 17; Pulse Ox 100% ; j7 09/11 00:30 BP 144 / 44; Pulse 52; Resp 15 S; Pulse Ox 100% on R/A; jw7 01:00 BP 143 / 43; Pulse 51; Resp 12 S; Pulse Ox 96% on R/A; jw7 09/10 20:52 Body Mass Index 18.07 (46.27 kg, 160.02 cm) cm10 09/10 20:52 Pain Scale: Adult cm10 ED Course: 09/10 20:39 Patient arrived in ED. gm2 20:54 Triage completed. cm10 20:55 Arm band placed on Patient placed in waiting room. EKG completed in triage. Results cm10 shown to MD. 20:55 EKG done, by ED staff, reviewed by Juan Yoder MD. cm10 20:56 Lucila Shields PA-C is PHCP. sb4 20:56 Juan Yoder MD is Attending Physician. sb4 21:40 Basic Metabolic Panel Sent. cm10 21:40 CBC with Diff Sent. cm10 21:41 LFT's Sent. cm10 21:41 Magnesium Sent. cm10 21:41 NT PRO-BNP Sent. cm10 21:41 PT-INR Sent. cm10 21:41 Troponin HS Sent. cm10 21:41 Initial lab(s) drawn, by me, sent to lab. Missed attempt(s): 20 gauge in left forearm. cm10 Bleeding controlled, band aid applied, catheter tip intact. Inserted saline lock: 20 gauge in left forearm, using aseptic technique. Blood collected. 21:59 XRAY Chest (1 view) In Process Unspecified. EDMS 23:00 Patient has correct armband on for positive identification. Bed in low position. Call jw7 light in reach. Side rails up X2. Provided Education on: Use of Call Light. 23:46 Chest Abdomen Pelvis W Cont In Process Unspecified. EDMS 09/11 01:07 Gilmer Quispe MD is Referral Physician. sb4 01:10 Troponin High Sensitivity Sent. j7 01:15 No provider procedures requiring assistance completed. IV discontinued, intact, jw7 bleeding controlled, No redness/swelling at site. Pressure dressing applied. Administered Medications: 09/10 23:00 Drug: NS 0.9% IV 1000 ml IV at 1 bolus Per protocol; 1000 mL bolus Route: IV; Rate: 1 jw7 bolus; Site: left forearm; 09/11 01:11 Follow up: IV Status: Completed infusion j7 09/10 23:36 Drug: fentaNYL (PF) IVP 50 mcg IVP once Route: IVP; Site: left forearm; j7 09/11 01:10 Follow up: Response: Pain is decreased j7 09/10 23:36 Drug: Ondansetron IVP 4 mg IVP once; over 2 minutes Route: IVP; Site: left antecubital; jj7 09/11 01:10 Follow up: Response: Nausea is decreased [facility] Medication: 09/10 23:00 VIS not applicable for this client. jw7 Outcome: 09/11 01:07 Discharge ordered by . sb4 01:15 Discharged to home ambulatory, with family, jw7 01:15 Condition: stable 01:15 Discharge instructions given to patient, family, Instructed on discharge instructions, follow up and referral plans. Demonstrated understanding of instructions, follow-up care, 01:17 Patient left the ED. jw7 Signatures: Dispatcher [employer] EDNV Rekha Marin RN RN jw7 Fausto Navarrete RN RN jjLucila Barraza PA-C TASHI [email or web address] Tamie Villalobos RN RN cm10 Anna Baig gm2
--- NOTE | 2023-09-12 01:08 | EDPHYS ---
Physician Documentation [facility] Name: Michelle Saavedra Age: 68 yrs Sex: Female : 1955 Arrival Date: 09/11/2023 Time: 20:35 Bed 7 Private MD: ED Physician Juan Yoder HPI: 09/10 20:59 This 68 yrs old Female presents to ER via Wheelchair with complaints of sb4 Headache, Chest Pain. 20:59 patient states she started experiencing left sided chest pain and generalized abdominal sb4 pain this morning. also reports nausea and headache. no vomiting or diarrhea. denies any sick contacts. Historical: - Allergies: 20:54 No Known Allergies; cm10 - PMHx: 20:54 Atrial fibrillation; COPD; Hypercholesterolemia; Hypertensive disorder; mechanical cm10 valve; - PSHx: 20:54 mechanical valve (ic); Right hip replacement (ic); cm10 - Immunization history:: Adult Immunizations up to date. - Infectious Disease History:: Denies. - Social history:: Smoking status: Patient denies any tobacco usage or history of. ROS: 09/11 01:06 Constitutional: Negative for fever, chills, and weight loss, sb4 Cardiovascular: Positive for chest pain, Abdomen/GI: Positive for abdominal pain, Neuro: Positive for headache, All other systems are negative, Exam: 01:06 Constitutional: This is a well developed, well nourished patient who is awake, alert, sb4 and in no acute distress. Head/Face: Normocephalic, atraumatic. Eyes: Extra-ocular motions intact. Periorbital areas with no swelling, redness, or edema. ENT: Mucous membranes moist. Cardiovascular: Regular rate and rhythm with a normal S1 and S2. Respiratory: Lungs have equal breath sounds bilaterally, clear to auscultation and percussion. No rales, rhonchi or wheezes noted. No increased work of breathing, no retractions or nasal flaring. Abdomen/GI: Soft, non-tender, no distension. Skin: Warm, dry with normal turgor. Normal color with no rashes, no lesions, and no evidence of cellulitis. MS/ Extremity: Pulses equal, no cyanosis. Neurovascular intact. Full, normal range of motion. Vital Signs: 09/10 20:52 BP 146 / 47; Pulse 53; Resp 18; Temp 97.3(TE); Pulse Ox 94% on R/A; Weight 46.27 kg; cm10 Height 5 ft. 3 in. ; Pain 8/10; 22:50 BP 92 / 60; Pulse 52; Resp 16; Pulse Ox 99% ; jj7 23:30 BP 95 / 46; Pulse 54; Resp 17; Pulse Ox 100% ; j7 09/11 00:30 BP 144 / 44; Pulse 52; Resp 15 S; Pulse Ox 100% on R/A; jw7 01:00 BP 143 / 43; Pulse 51; Resp 12 S; Pulse Ox 96% on R/A; jw7 09/10 20:52 Body Mass Index 18.07 (46.27 kg, 160.02 cm) cm10 09/10 20:52 Pain Scale: Adult cm10 MDM: 09/10 20:56 Patient medically screened. sb4 09/11 01:06 Data reviewed: vital signs, nurses notes, lab test result(s), EKG, radiologic studies, sb4 and as a result, I will discharge patient. Care significantly affected by the following chronic conditions: Hypertension. 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 09/10 21:01 Order name: Basic Metabolic Panel; Complete Time: 22:21 4 09/10 21:01 Order name: CBC with Diff; Complete Time: 22:02 09/10 21:01 Order name: LFT's; Complete Time: 22:21 sb4 09/10 21:01 Order name: Magnesium; Complete Time: 22:21 4 09/10 21:01 Order name: NT PRO-BNP; Complete Time: 22:21 4 09/10 21:01 Order name: PT-INR; Complete Time: 22:02 4 09/10 21:01 Order name: Troponin HS; Complete Time: 22:21 sb4 09/10 21:01 Order name: Lipase; Complete Time: 22:21 sb4 09/10 23:40 Order name: Troponin High Sensitivity sb4 09/10 21:01 Order name: XRAY Chest (1 view); Complete Time: 22:17 sb4 09/10 23:36 Order name: Chest Abdomen Pelvis W Cont EDMS 09/10 21:01 Order name: Cardiac monitoring; Complete Time: 23:00 sb4 09/10 21:01 Order name: EKG - Nurse/Tech; Complete Time: 21:31 sb4 09/10 21:01 Order name: IV Saline Lock; Complete Time: 21:40 sb4 09/10 21: Order name: Labs collected and sent; Complete Time: :40 sb4 09/10 21:01 Order name: O2 Per Protocol; Complete Time: 23:00 sb4 09/10 21: Order name: O2 Sat Monitoring; Complete Time: 23:00 sb4 EC/29 21:03 Rate is 49 beats/min. Rhythm is regular, Sinus bradycardia with 1st degree heart block. sb4 [place] interval is prolonged at 49 msec. QRS interval is normal at 120 msec. QT interval is prolonged at 534 msec. No Q waves. T waves are Normal. No ST changes noted. Clinical impression: No evidence of ischemia. Interpreted by me. Reviewed by me. Administered Medications: 23:00 Drug: NS 0.9% IV 1000 ml IV at 1 bolus Per protocol; 1000 mL bolus Route: IV; Rate: 1 jw7 bolus; Site: left forearm; 09/11 01:11 Follow up: IV Status: Completed infusion j09/10 23:36 Drug: fentaNYL (PF) IVP 50 mcg IVP once Route: IVP; Site: left forearm; 09/11 01:10 Follow up: Response: Pain is decreased j7 09/10 23:36 Drug: Ondansetron IVP 4 mg IVP once; over 2 minutes Route: IVP; Site: left antecubital; 7 09/11 01:10 Follow up: Response: Nausea is decreased Disposition: 05:51 Co-signature as Attending Physician, Juan Yoder MD I agree with the assessment sp4 and plan of care. I reviewed the patient's care provided by the Advanced Practice Provider and agree with the diagnosis and treatment plan. Disposition Summary: 09/12/23 01:07 Discharge Ordered Notes: Location: Home sb4 Problem: new sb4 Symptoms: have improved sb4 Condition: Stable sb4 Diagnosis - Abdominal pain, Generalized sb4 - Chest pain, unspecified sb4 - Other chronic pain sb4 Followup: sb4 - With: Gilmer Quispe MD - When: As needed - Reason: Recheck today's complaints, Re-evaluation by your physician Discharge Instructions: - Discharge Summary Sheet sb4 - Chronic Pain, Adult sb4 - Abdominal Pain, Adult, [id number] sb4 - Nonspecific Chest Pain, Adult, [id number] sb4 Forms: - Patient Portal Instructions sb4 - Leadership Thank You Letter sb4 Signatures: Dispatcher [employer] EDMS Rekha Marin, RN RN jw7 Fausto Navarrete RN RN jj7 Lucila Shields PA-C PAJose A sb4 Juan Yoder MD MD sp4 Tamie Villalobos RN RN cm10 Corrections: (The following items were deleted from the chart) 09/10 21:02 21:02 BASIC METABOLIC PANEL+C.LAB.BRZ ordered. EDMS EDMS 21:02 21:02 CBC+H.LAB.BRZ ordered. EDMS EDMS 21:02 21:02 HEPATIC FUNCTION+C.LAB.BRZ ordered. EDMS EDMS 21:02 21:02 MAGNESIUM+C.LAB.BRZ ordered. EDMS EDMS 21:02 21:02 PROBNP+C.LAB.BRZ ordered. EDMS EDMS 21:02 21:02 PROTIME (+INR)+COAG.LAB.BRZ ordered. EDMS EDMS 21:02 21:02 Troponin High Sensitivity+C.LAB.BRZ ordered. EDMS EDMS 21:02 21:02 LIPASE+C.LAB.BRZ ordered. EDMS EDMS 21:02 21:02 Chest Single View+RAD.RAD.BRZ ordered. EDMS EDMS 23:36 23:14 Chest Abdomen W/ Con+CT.RAD.BRZ ordered. EDMS EDMS 23:40 23:40 Troponin High Sensitivity+C.LAB.BRZ ordered. EDMS EDMS
[2023-09-12 01:31] VITALS: BP 143/43; TEMP 97.3; O2SAT 96
--- NOTE | 2023-09-12 12:25 | RAD REPORT ---
EXAM DESCRIPTION: CT - Chest Abdomen Pelvis W Cont - 09/12/2023 6:09 am ADDENDUM #1 Prior exam of August 21, 2022 was made available for comparison. Images were reviewed. The aneurysmal dil atation of the ascending and descending thoracic aorta along with extensive atherosclerotic plaque an d mural thrombus is unchanged. Electronically signed by: Zahira Hannah MD 09/12/2023 01:14 AM CDT RP End of Addendum EXAM: CT Chest, Abdomen and Pelvis With Intravenous Contrast CLINICAL HISTORY: The patient is 68 years old and is Female; abd pain;Chest pain TECHNIQUE: Axial computed tomography images of the chest, abdomen and pelvis with intravenous contra st. Sagittal and coronal reformatted images were created and reviewed. This CT exam was performed using one or more of the following dose reduction techniques: automated exposure control, adjustme nt of the mA and/or kV according to patient size, and/or use of iterative reconstruction technique. COMPARISON: CT abdomen pelvis February 23, 2023 FINDINGS: CHEST: LUNGS: The lungs are clear of focal opacity, mass, or consolidation. PLEURAL SPACE: Unremarkable. No significant effusion. No pneumothorax. HEART: The heart is enlarged. ABDOMEN: LIVER: Unremarkable. No mass. GALLBLADDER AND BILE DUCTS: Calcified gallstones are present within the gallbladder. There is no ductal dilatation. PANCREAS: Fatty infiltration of the pancreas is present. SPLEEN: Unremarkable. ADRENALS: Unremarkable. No mass. KIDNEYS AND URETERS: The kidneys enhance symmetrically and are without hydronephrosis or hydroure ter. No obstructing renal or ureteral calculus is seen. STOMACH AND BOWEL: Stomach is decompressed. The small bowel is normal in caliber. A moderate amou nt of stool is present throughout the colon. There is no mucosal thickening or evidence of obstructio n. PELVIS: APPENDIX: The appendix is normal in caliber without surrounding inflammation. BLADDER: The bladder is incompletely distended. REPRODUCTIVE: Unremarkable as visualized. CHEST, ABDOMEN and PELVIS: INTRAPERITONEAL SPACE: Unremarkable. No significant fluid collection. No free air. BONES/JOINTS: A right hip prosthesis is present causing streak artifact limiting evaluation speci fically of the pelvis. Minimal degenerative change of the spine is noted. Chronic compression defor mity of L1 is present. Evidence of median sternotomy is noted. SOFT TISSUES: The soft tissues are normal. VASCULATURE: Extensive atherosclerosis of the aorta is present. Aneurysmal dilatation of the thor acic aorta measuring 4.2 cm is noted. Evidence of a prosthetic aortic valve is noted. Aneurysmal di latation of the ascending aorta measuring approximately 4 cm is noted. There are no obvious filling defects identified within the pulmonary arteries to suggest pulmonary embolism. LYMPH NODES: Unremarkable. No enlarged lymph nodes. IMPRESSION: 1. Extensive atherosclerosis specifically of the aortic arch with minimal mural thromb us near the root of the aorta and associated aneurysmal dilatation of both the ascending aorta and de scending thoracic aorta. Correlating to prior CT of the chest report August 21, 2022, the size of the aor ta is similar. However, images were not available for review. 2. No evidence of pulmonary embolism. Minimal 3. No bowel obstruction. Normal appendix. Electronically signed by: Zahira Hannah MD 09/12/2023 12:59 AM CDT RP Due to temporary technical issues with the PACS/Fluency reporting system, reports are being signed by the in house radiologist without review as a courtesy to ensure prompt reporting. The interpreting r adiologist is fully responsible for the content of the report.
--- NOTE | 2023-09-13 16:55 | EKG ---
Test Date: 2023-09-11 Test Time: 20:50:24 [employer] Systems Installer: ANDRY MEASUREMENT RESULTS: Intervals: Rate: 49 ND: 240 QRSD: 120 QT: 534 QTc: 482 [place]: P: 117 ND: 240 QRS: 67 T: 58 INTERPRETIVE STATEMENTS: Marked sinus bradycardia with sinus arrhythmia with 1st degree AV block Incomplete left bundle branch block Abnormal ECG Compared to ECG 05/01/2023 00:18:29 First degree AV block now present Left bundle-branch block now present Atrial fibrillation no longer present ST (T wave) deviation no longer present Possible ischemia no longer present Electronically Signed On 09-13-23 16:49:45 CDT by Jam Bolanos
== END 2023-09-12 01:17 | disposition home or self-care (01) ==
LOC: ER 20:35
DX: R07.9 Chest pain, unspecified (principal); R10.84 Generalized abdominal pain; G89.29 Other chronic pain; R51.9 Headache, unspecified; I10 Essential (primary) hypertension
CPT/HCPCS: 93005; 85025; 80048; 36415; 83735; 85610; 80076; 84484 ×2; 83690; 83880; 71260; 74177; 71045; 99284; Q9967; J3010; J2405; J7030

== ENCOUNTER 2023-10-18 01:03 | Emergency (ER) | payer OTHER ==
[2023-10-18 02:31] LABS: Absolute Basophils 0.1 K/uL (0-0.5); Absolute Eosinophils 0.1 K/uL (0-0.5); Absolute Lymphocytes (CBC) 0.9 K/uL (0.7-4.9); Absolute Monocytes 0.6 K/uL (0.1-1.3); Basophils % 1.5 % (0-1.3); Eosinophils % 3.2 % (0-4.4); Hematocrit 28.4 % (36.0-45.0); Hemoglobin 8.9 g/dL (12.0-15.0); Lymphocytes % 18.1 % (15.3-44.8); MCH 30.3 pg (27.0-35.0); MCHC 31.3 g/dL (32.0-36.0); MCV 96.6 fL (80-100); MPV 8.7 fL (7.6-11.3); Monocytes % 12.9 % (3.3-12.3); Neutrophils % 64.3 % (41.7-73.7); Nucleated Red Blood Cells % 0.1 % (0-0); Platelets 200 thou/uL (152-406); RBC Red Blood Cell Count 2.94 M/uL (3.86-4.86); Red Cell Distribution Width 15.8 % (12.1-15.2)
[2023-10-18 02:43] LABS: PT Prothrombin Time 17.4 SECONDS (9.4-12.5); Protime INR 1.6
[2023-10-18 02:53] LABS: Anion Gap 4.6 mEq/L (5.0-15.0); Potassium 3.6 mEq/L (3.5-5.1); Troponin High Sensitivity 12.9 pg/mL (<58.9)
--- NOTE | 2023-10-18 04:57 | ER ---
Nurse's Notes [facility] Name: Michelle Saavedra Age: 68 yrs Sex: Female : 1955 Arrival Date: 10/18/2023 Time: 01:03 Bed 8 Private MD: Shar Roa Diagnosis: Chest pain, unspecified Presentation: 10/17 01:25 Chief complaint: Patient states: CHEST PAIN ALL DAY. SWELLING AND PAIN TO LEFT ANKLE X2 jj7 DAYS. Coronavirus screen: At this time, the client does not indicate any symptoms associated with coronavirus-19. Ebola Screen: No symptoms or risks identified at this time. Initial Sepsis Screen: Does the patient meet any 2 criteria? No. Patient's initial sepsis screen is negative. Does the patient have a suspected source of infection? No. Patient's initial sepsis screen is negative. Risk Assessment: Do you want to hurt yourself or someone else? Patient reports desire/thoughts of hurting themselves or someone else. Provider notified. Onset of symptoms was October 17, 2023. 01:25 Method Of Arrival: Wheelchair jj7 01:25 Acuity: JAKUB 3 jj7 Triage Assessment: 01:25 General: Appears in no apparent distress. comfortable, Behavior is calm, cooperative, jj7 appropriate for age. Pain: Complains of pain in chest, left Achilles and left lateral malleolus. Cardiovascular: Reports chest pain, nausea. Musculoskeletal: Swelling present in left lateral ankle and anterior aspect of left ankle Reports pain in left lateral ankle and anterior aspect of left ankle. Historical: - Allergies: 01:37 No Known Allergies; jj7 - PMHx: 01:37 Atrial fibrillation; COPD; Hypercholesterolemia; Hypertensive disorder; mechanical jj7 valve; - PSHx: 01:37 mechanical valve; Right hip replacement; jj7 - Immunization history:: Adult Immunizations not up to date, Client reports having NOT received the Covid vaccine. Flu vaccine is up to date. - Infectious Disease History:: Denies. - Social history:: Smoking status: Patient denies any tobacco usage or history of. Patient/guardian denies using alcohol, street drugs, IV drugs. Screenin:25 Abuse screen: Denies threats or abuse. Nutritional screening: No deficits noted. jj7 Tuberculosis screening: No symptoms or risk factors identified. 05:17 [facility] ED Fall Risk Assessment (Adult) History of falling in the last 3 months, jj7 including since admission No falls in past 3 months (0 pts) Confusion or Disorientation No (0 pts) Intoxicated or Sedated No (0 pts) Impaired Gait Yes (1 pt) Mobility Assist Device Used No (0 pt) Altered Elimination No (0 pt) Score/Fall Risk Level 0 - 2 = Low Risk Oriented to surroundings, Maintained a safe environment, Educated pt \T\ family on fall prevention, incl call for assistance when getting out of bed. Assessment: 01:25 Reassessment: SEE TRIAGE ASSESSMENT. Pain: Pain does not radiate. Pain began gradually. jj7 Vital Signs: 01:25 BP 178 / 68; Pulse 46; Resp 14; Temp 98.3; Pulse Ox 100% ; Weight 46.27 kg; Height 5 j7 ft. 3 in. ; Pain 9/10; 02:19 BP 172 / 53; Pulse 50; Resp 17; Pulse Ox 97% ; jj7 03:00 BP 180 / 48; Pulse 50; Resp 16; Pulse Ox 97% ; jj7 04:15 BP 151 / 50; Pulse 45; Resp 17; Pulse Ox 99% ; jj7 05:17 BP 150 / 49; Pulse 51; Resp 17; Temp 98.2; Pulse Ox 96% ; jj7 01:25 Body Mass Index 18.07 (46.27 kg, 160.02 cm) jj7 01:25 Pain Scale: Adult jj7 ED Course: 01:05 Patient arrived in ED. mr 01:05 Shar Roa MD is Private Physician. mr 01:25 Arm band placed on right wrist. Patient placed in an exam room, on a stretcher, on jj7 quality assurance monitor body. 01:25 Patient has correct armband on for positive identification. Bed in low position. Call j7 light in reach. Side rails up X2. Provided Education on: USE OF CALL GENAO. Client placed on continuous cardiac and pulse oximetry monitoring. NIBP monitoring applied. patient monitor on. Pulse ox on. Warm blanket given. 01:25 O2 via RA Response to oxygen therapy: O2 SAT ON RA 100%. jj7 01:37 Triage completed. jj7 01:53 Zane Whitehead MD is Attending Physician. bo1 02:20 Inserted saline lock: 20 gauge in right antecubital area, using aseptic technique. jj7 Blood collected. 02:20 Basic Metabolic Panel Sent. jj7 02:20 CBC with Diff Sent. jj7 02:20 PT-INR Sent. jj7 02:20 Troponin HS Sent. jj7 02:43 XRAY Chest (1 view) In Process Unspecified. EDID 04:56 Shar Roa MD is Referral Physician. bo1 05:17 No provider procedures requiring assistance completed. IV discontinued, intact, jj7 bleeding controlled, No redness/swelling at site. Pressure dressing applied. Administered Medications: No medications were administered Medication: 01:25 VIS not applicable for this client. jj7 Outcome: 04:56 Discharge ordered by . bo1 05:17 Discharged to home via wheelchair, jj7 05:17 Condition: good 05:17 Discharge instructions given to patient, Instructed on discharge instructions, Demonstrated understanding of instructions, 05:18 Patient left the ED. jj7 Signatures: Dispatcher [employer] [facility] Kathrin Billy, Marques Reg mr Fausto Navarrete, RN RN jj7 Zane Whitehead MD MD bo1
--- NOTE | 2023-10-18 04:58 | EDPHYS ---
Physician Documentation [facility] Name: Michelle Saavedra Age: 68 yrs Sex: Female : 1955 Arrival Date: 10/18/2023 Time: 01:03 Bed 8 Private MD: Shar Roa ED Physician Zane Whitehead HPI: 10/17 01:54 This 68 yrs old Female presents to ER via Wheelchair with complaints of Chest bo1 Pain, Arm Pain, Feet Swelling, Nausea. 01:54 The patient has experienced similar episodes in the past, "I am just worried." My bo1 PT/INR may be low. It was "1.9" last time.. Historical: - Allergies: 01:37 No Known Allergies; jj7 - PMHx: 01:37 Atrial fibrillation; COPD; Hypercholesterolemia; Hypertensive disorder; mechanical jj7 valve; - PSHx: 01:37 mechanical valve; Right hip replacement; jj7 - Immunization history:: Adult Immunizations not up to date, Client reports having NOT received the Covid vaccine. Flu vaccine is up to date. - Infectious Disease History:: Denies. - Social history:: Smoking status: Patient denies any tobacco usage or history of. Patient/guardian denies using alcohol, street drugs, IV drugs. ROS: 04:53 Constitutional: Negative for fever, chills, and weight loss, bo1 04:53 MS/extremity: Positive for pain, tingling, 04:54 Cardiovascular: Positive for chest pain, Pt reports her "Usual CP" and would she get bo1 some "pain meds.", Exam: 04:52 Constitutional: This is a well developed, well nourished patient who is awake, alert, bo1 and in no acute distress. 04:52 Neck: External neck: is normal, 04:52 Chest/axilla: Inspection: no acute changes, 04:52 Cardiovascular: Rate: bradycardic, Rhythm: regular, Heart sounds: normal, 04:52 Respiratory: Exam negative for acute changes, the patient does not display signs of respiratory distress, 04:52 Abdomen/GI: Exam negative for acute changes, 04:52 Musculoskeletal/extremity: Extremities: all appear grossly normal, with no appreciated pain with palpation, 04:52 Skin: Exam negative for ecchymosis, petechiae, rash, 04:52 Neuro: Exam negative for acute changes, 05:07 ECG was reviewed by the Attending Physician. bo1 Vital Signs: 01:25 BP 178 / 68; Pulse 46; Resp 14; Temp 98.3; Pulse Ox 100% ; Weight 46.27 kg; Height 5 j ft. 3 in. ; Pain 9/10; 02:19 BP 172 / 53; Pulse 50; Resp 17; Pulse Ox 97% ; j7 03:00 BP 180 / 48; Pulse 50; Resp 16; Pulse Ox 97% ; j7 04:15 BP 151 / 50; Pulse 45; Resp 17; Pulse Ox 99% ; j7 05:17 BP 150 / 49; Pulse 51; Resp 17; Temp 98.2; Pulse Ox 96% ; j7 01:25 Body Mass Index 18.07 (46.27 kg, 160.02 cm) [facility] 01:25 Pain Scale: Adult [facility] MDM: 02:03 Patient medically screened. bo1 04:50 Differential diagnosis: Chronic c/o with stable ongoing labs. No criteria for acute bo1 hospitalization. ED course: Pt has stable symptoms and will call her son for discharge pickup.. 04:58 Data reviewed: vital signs, lab test result(s), CBC, electrolytes, EKG, radiologic bo1 studies, plain films. 10/17 01:54 Order name: Basic Metabolic Panel; Complete Time: 04:09 bo10/17 01:54 Order name: CBC with Diff; Complete Time: 04:09 10/17 01:54 Order name: PT-INR; Complete Time: 04:09 bo10/17 01:54 Order name: Troponin HS; Complete Time: 04:09 10/17 01:54 Order name: XRAY Chest (1 view) 10/17 01:54 Order name: Cardiac monitoring; Complete Time: 02:10 10/17 01:54 Order name: EKG - Nurse/Tech; Complete Time: 02:34 10/17 01:54 Order name: IV Saline Lock; Complete Time: 02:20 bo10/17 01:54 Order name: Labs collected and sent; Complete Time: 02:20 bo10/17 01:54 Order name: O2 Per Protocol; Complete Time: 02:10 10/17 01:54 Order name: O2 Sat Monitoring; Complete Time: :10 bo1 EC:07 Rate is 52 beats/min. QRS [place] is Normal. [place] interval is prolonged. Q waves are Present bo1 in leads V1, V2. T waves are Inverted in leads aVL, aVR, V1, V2. No ST changes noted. Clinical impression: 1st degree heart block, Septal FL - age indeterminate, and Sinus bradycardia. Interpreted by me. Reviewed by me. Administered Medications: No medications were administered Disposition Summary: 10/18/23 04:56 Discharge Ordered Notes: Location: Home bo1 Problem: chronic bo1 Symptoms: are unchanged bo1 Condition: Stable bo1 Diagnosis - Chest pain, unspecified bo1 Followup: bo1 - With: Private Physician - When: Today - Reason: Followup: bo1 - With: Shar Roa MD - When: Today - Reason: Discharge Instructions: - Discharge Summary Sheet bo1 - Nonspecific Chest Pain, Adult bo1 Forms: - Medication Reconciliation Form bo1 - Antibiotic Education bo1 - Prescription Opioid Use bo1 - Patient Portal Instructions bo1 - Leadership Thank You Letter bo1 Signatures: Dispatcher [employer] Fausto Poole RN RN jj7 Zane Whitehead MD MD bo1
[2023-10-18 05:34] VITALS: BP 150/49; TEMP 98.2; O2SAT 96
--- NOTE | 2023-10-18 11:12 | EKG ---
Test Date: 2023-10-18 Test Time: 02:27:16 Door Liner: AF MEASUREMENT RESULTS: Intervals: Rate: 52 MA: 254 QRSD: 120 QT: 528 QTc: 491 [place]: P: 91 MA: 254 QRS: 57 T: 68 INTERPRETIVE STATEMENTS: Sinus bradycardia with 1st degree AV block Septal infarct, age undetermined Abnormal ECG Compared to ECG 09/11/2023 20:50:24 Myocardial infarct finding now present Sinus arrhythmia no longer present Left bundle-branch block no longer present Electronically Signed On 10-18-23 11:11:39 CDT by Osiel Corbin
--- NOTE | 2023-10-18 12:02 | RAD REPORT ---
EXAM DESCRIPTION: XR Chest, 1 View CLINICAL HISTORY: The patient is 68 years old and is Female; Chest Pain TECHNIQUE: Frontal view of the chest. COMPARISON: XR Chest 09/12/2023. 09/11/2023 CT chest abdomen pelvis FINDINGS: LUNGS: Suspected artifactual prominence of the bilateral hilar structures secondary to t echnique and patient positioning. No focal consolidation. PLEURAL SPACE: No appreciable pleural effusion or pneumothorax. MEDIASTINUM: Stable enlargement of the cardiomediastinal silhouette. BONES/JOINTS: Median sternotomy. VASCULATURE: Calcified atherosclerosis of the thoracic aorta. IMPRESSION: No acute acute cardiopulmonary abnormality. Electronically signed by: John Owusu MD 10/18/2023 03:53 AM CDT RP Due to temporary technical issues with the PACS/Fluency reporting system, reports are being signed by the in house radiologist without review as a courtesy to ensure prompt reporting. The interpreting r adiologist is fully responsible for the content of the report.
== END 2023-10-18 05:18 | disposition home or self-care (01) ==
LOC: ER 01:03
DX: R07.9 Chest pain, unspecified (principal); I10 Essential (primary) hypertension; I48.91 Unspecified atrial fibrillation
CPT/HCPCS: 36415; 71045; 80048; 84484; 85025; 85610; 93005; 99285

== ENCOUNTER 2024-04-03 08:37 | Emergency (ER) | payer OTHER ==
[2024-04-03] MEDS ORDERED: ONDANSETRON 4 MG/2 ML VIAL ONE (09:21)
[2024-04-03] MEDS ORDERED: MORPHINE 2 MG/ML SYR ONE (09:22)
[2024-04-03 09:27] LABS: Hematocrit 32.9 % (36.0-45.0); Hemoglobin 10.7 g/dL (12.0-15.0); MCH 28.7 pg (27.0-35.0); MCHC 32.6 g/dL (32.0-36.0); MPV 7.8 fL (7.6-11.3); Platelets 255 thou/uL (152-406); RBC Red Blood Cell Count 3.74 M/uL (3.86-4.86); Red Cell Distribution Width 18.3 % (12.1-15.2)
[2024-04-03 09:33] LABS: PT Prothrombin Time 39.1 SECONDS (9.4-12.5); Protime INR 3.62
[2024-04-03 09:46] LABS: Anion Gap 6.9 mEq/L (5.0-15.0); Potassium 3.9 mEq/L (3.5-5.1)
--- NOTE | 2024-04-03 10:06 | RAD REPORT ---
EXAM: CT brain without contrast HISTORY: TRAUMA COMPARISON: 08/14/2023 TECHNIQUE: Multiple contiguous axial images were obtained and a CT of the brain without contrast. Sag ittal and coronal reformats were performed. One or more of the following dose reduction techniques were used: Automated exposure control, adjust ment of the mA and/or kV according to patient size, and/or iterative reconstruction. FINDINGS: No evidence of hydrocephalus, intracranial hemorrhage, or extra-axial fluid collection. The brain is normal in morphology. No evidence of midline shift or areas of brain edema. The calvarium is intact. The visualized paranasal sinuses and mastoid air cells are essentially clear . IMPRESSION: No evidence of acute intracranial abnormality. EXAM: CT of the cervical spine without contrast HISTORY: Neck pain, injury TRAUMA TECHNIQUE: Multiple contiguous axial images were obtained in a CT of the cervical spine without contr ast. Sagittal and coronal reformats were performed. FINDINGS: The vertebral bodies demonstrate normal height and alignment. No evidence of acute fracture or subluxation.. No degenerative changes are present. No prevertebral soft tissue swelling is seen. The posterior facets are well aligned. Normal alignment of the skull base with the cervical spine is seen. The lung apices are unremarkable. IMPRESSION: No evidence of acute osseous abnormality of the cervical spine.
--- NOTE | 2024-04-03 10:10 | RAD REPORT ---
EXAMINATION: CT MAXILLOFACIAL WITHOUT CONTRAST CLINICAL INDICATION: TRAUMA TECHNIQUE: Axial images were obtained through the facial bones and orbits without intravenous contras t. Sagittal and coronal reconstructions were created from the data. One or more of the following dose reduction techniques were used: Automated exposure control, adjustment of the mA and/or kV accor ding to patient size, and/or iterative reconstruction. Unless otherwise specified, incidental findings do not require dedicated imaging follow-up. COMPARISON: 02/10/2017 FINDINGS: SOFT TISSUE: Moderate carotid atherosclerosis bilaterally. BONES: Minimal nasal bone fracture is possible. Correlation with point tenderness is advised. ORBITS: The globes are intact. No intraorbital hemorrhage or mass. SINUSES: The visualized paranasal sinuses and mastoid air cells are essentially clear. IMPRESSION: Minimal nasal bone fracture is present. Correlation with point tenderness in this region suggested.
--- NOTE | 2024-04-03 10:19 | RAD REPORT ---
EXAM: CT CHEST, ABDOMEN AND PELVIS WITHOUT CONTRAST CLINICAL INDICATION: TRAUMA TECHNIQUE: CT chest, abdomen and pelvis was performed without contrast, as per department protocol. A xial, sagittal and coronal reconstructions were obtained. One or more of the following dose reduction techniques were used: Automated exposure control, adjustment of the mA and/or kV according to patient size, and/or iterative reconstruction. Unless otherwise specified, incidental findings do not require dedicated imaging follow-up. Examination is limited by the lack of intravenous contrast material. COMPARISON: No prior exam. FINDINGS: LUNGS: No evidence of airspace or interstitial process. No nodules. PLEURA: No pleural effusion. No pneumothorax. MEDIASTINUM AND LYMPH NODES: No mediastinal mass or fluid collection. Normal size mediastinal, hilar, and axillary lymph nodes. Heavy aortic atherosclerosis. The descending thoracic aorta measures 4 cm in transverse dimension. OSSEOUS STRUCTURES AND CHEST WALL: Intact. LIVER: Normal in size and contour. No focal lesion or biliary dilatation. Cholelithiasis. PANCREAS: No mass, ductal dilation, or kyle-pancreatic fluid. SPLEEN: Normal size. No focal lesion. ADRENALS: Normal; no mass. KIDNEYS: Normal size and contour. No hydronephrosis. URINARY BLADDER: Normal contour. GASTROINTESTINAL TRACT: No bowel obstruction, free air, significant free fluid or abscess. APPENDIX: Normal appendix. LYMPH NODES: No lymphadenopathy. MUSCULOSKELETAL: No acute or suspicious osseous abnormality. Moderate chronic L1 compression deformit y. Mild thoracic scoliosis. OTHER: Right total of arthroplasty. Aortoiliac atherosclerosis. IMPRESSION: No acute or significant abnormalities seen in the chest, abdomen or pelvis. Cholelithiasis. Heavy atherosclerosis.
--- NOTE | 2024-04-03 10:27 | EDPHYS ---
Physician Documentation [facility] Name: Michelle Saavedra Age: 68 yrs Sex: Female : 1955 Arrival Date: 04/03/2024 Time: 08:37 Bed 16 Private MD: ED Physician Suleiman Valdivia HPI: 04/03 09:07 This 68 yrs old Female presents to ER via Ambulatory with complaints of Fall sp3 Injury. 09:07 68-year-old female with history of COPD, atrial fibrillation, mechanical heart valve, sp3 right hip replacement now presents to the ED with mechanical fall that occurred approximately 4 days ago as reported by patient. She states she had positive LOC, facial contusions and neck pain. She also claims her left shoulder and left hip and lower back hurt. She denies any chest pain, shortness of breath, bleeding, inability to walk, or any other signs or symptoms on ROS at this time.. Historical: - Allergies: 09:07 No Known Allergies; hb - Home Meds: 09:07 Warfarin Oral [Active]; atorvastatin oral [Active]; Amiodarone Oral [Active]; hb Metoprolol Tartrate Oral [Active]; furosemide Oral [Active]; - PMHx: 09:07 Atrial fibrillation; COPD; Hypercholesterolemia; Hypertensive disorder; mechanical hb valve; - PSHx: 09:07 mechanical valve; Right hip replacement; hb - Immunization history:: Adult Immunizations up to date. - Infectious Disease History:: Denies. - Social history:: Smoking status: Patient/guardian denies using tobacco, but has a distant history of tobacco abuse. ROS: 09:08 Constitutional: Negative for fever, chills, and weight loss, Eyes: Negative for injury, sp3 pain, redness, and discharge, Neck: Negative for injury, pain, and swelling, Cardiovascular: Negative for chest pain, palpitations, and edema, Respiratory: Negative for shortness of breath, cough, wheezing, and pleuritic chest pain, Abdomen/GI: Negative for abdominal pain, nausea, vomiting, diarrhea, and constipation, Back: Negative for injury and pain, Skin: Negative for injury, rash, and discoloration, Neuro: Negative for headache, weakness, numbness, tingling, and seizure, Psych: Negative for depression, anxiety, suicide ideation, homicidal ideation, and hallucinations, Allergy/Immunology: Negative for hives, rash, and allergies, 09:08 All other systems are negative, Exam: 09:09 Constitutional: This is a well developed, well nourished patient who is awake, alert, sp3 and in no acute distress. Eyes: Pupils equal round and reactive to light, extra-ocular motions intact. Lids and lashes normal. Conjunctiva and sclera are non-icteric and not injected. Cornea within normal limits. Periorbital areas with no swelling, redness, or edema. ENT: Nares patent. No nasal discharge, no septal abnormalities noted. External auditory canals are clear. Oropharynx with no redness, swelling, or masses, exudates, or evidence of obstruction, uvula midline. Mucous membranes moist. Neck: Trachea midline, no thyromegaly or masses palpated, and no cervical lymphadenopathy. Supple, full range of motion without nuchal rigidity, or vertebral point tenderness. No Meningismus. Chest/axilla: Normal chest wall appearance and motion. Nontender with no deformity. No lesions are appreciated. Cardiovascular: Regular rate and rhythm with a normal S1 and S2. No gallops, murmurs, or rubs. Normal PMI, no JVD. No pulse deficits. Respiratory: Lungs have equal breath sounds bilaterally, clear to auscultation and percussion. No rales, rhonchi or wheezes noted. No increased work of breathing, no retractions or nasal flaring. Abdomen/GI: Soft, non-tender, with normal bowel sounds. No distension or tympany. No guarding or rebound. No evidence of tenderness throughout. Neuro: Awake and alert, GCS 15, oriented to person, place, time, and situation. Cranial nerves II-XII grossly intact. Motor strength 5/5 in all extremities. Sensory grossly intact. Cerebellar exam normal. Normal gait. Psych: Awake, alert, with orientation to person, place and time. Behavior, mood, and affect are within normal limits. 09:09 Head/face: Facial contusions noted in the left zygomatic arch, left temporal region and periocular region. No ocular involvement, anterior hyphema or other traumatic injury noted. There is no septal hematoma. Neck pain is isolated to the left trapezius muscle. Left shoulder pain on palpation without dislocation. Hip exam is normal. Mild pain to palpation on the lower back mainly muscular.. Vital Signs: 09:05 BP 167 / 60; Pulse 60; Resp 16; Temp 97.8(TE); Pulse Ox 100% on R/A; Weight 47.63 kg; hb Height 5 ft. 2 in. ; Pain 8/10; 09:40 BP 152 / 61; Pulse 71; Resp 17; Pulse Ox 98% on R/A; rs5 10:48 BP 155 / 66; Pulse 77; Resp 17; Pulse Ox 99% on R/A; rs5 09:05 Body Mass Index 19.20 (47.63 kg, 157.48 cm) hb 09:05 Pain Scale: Adult hb MDM: 09:03 Medical Screening Exam initiated sp3 09:10 Data reviewed: vital signs, nurses notes, old medical records, lab test result(s), sp3 radiologic studies. ED course: 68-year-old female with mechanical fall with probable soft tissue injuries versus facial bone fracture versus intracranial hemorrhage. Full trauma gram will be ordered including CT scan of the head, C-spine, facial bones, chest abdomen and pelvis Patient is on warfarin therefore PT/INR and CBC and chemistries will be ordered as well. Morphine and Zofran for pain control. If workup negative we will safely discharge patient home at this time.. 10:25 ED course: Nasal bone fracture noted on facial bone CT. Remainder of CT scans are sp3 negative for any acute injury. INR at 3.6 and no need for reversal. Patient will be safely discharged home at this time with follow-up to PCP.. 12 09:07 Order name: PT-INR; Complete Time: 09:46 sp3 04/03 09:07 Order name: CBC w/o diff; Complete Time: 09:46 sp3 04/03 09:07 Order name: Chem 7; Complete Time: 09:46 sp3 04/03 09:07 Order name: CT Facial Bones W/O Con; Complete Time: 10:22 sp3 04/03 09:25 Order name: Head C Spine Mpr Wo Con; Complete Time: 10:22 EDMS 04/03 09:28 Order name: Chest Abd Pelvis Wo Con; Complete Time: 10:22 EDMS Administered Medications: 09:31 Drug: morphine IVP or IV 2 mg IVP once over 4 mins Route: IVP; Infused Over: 4 mins; rs5 Site: left antecubital; 09:55 Follow up: Response: No adverse reaction; Pain is decreased rs5 09:31 Drug: Ondansetron IVP 4 mg IVP once; over 2 minutes Route: IVP; Site: left antecubital; rs5 09:45 Follow up: Response: No adverse reaction rs5 10:37 Drug: morphine IVP or IV 4 mg IVP once over 4 mins Route: IVP; Infused Over: 4 mins; rs5 Site: left antecubital; 11:00 Follow up: Response: No adverse reaction; Pain is decreased rs5 10:37 Not Given (Physician Discretion): morphineor iv 4 mg IVP once over 4 mins rs5 Disposition Summary: 04/03/24 10:26 Discharge Ordered Notes: Location: Home sp3 Condition: Stable sp3 Diagnosis - Nasal fracture, facial contusions, cervical strain, fall, closed head injury sp3 Followup: sp3 - With: Private Physician - When: Upon discharge from the Emergency Department - Reason: Continuance of care Discharge Instructions: - Discharge Summary Sheet sp3 - Nasal Fracture sp3 - Fall Prevention in the Home, Adult, [id number] sp3 Forms: - Medication Reconciliation Form sp3 - Antibiotic Education sp3 - Prescription Opioid Use sp3 - Patient Portal Instructions sp3 - Leadership Thank You Letter sp3 Prescriptions: - Tramadol 50 mg Oral Tablet - take 1 tablet ORAL route every 8 hours as needed; 12 tablet; Refills: 0, sp3 Product Selection Permitted Signatures: Dispatcher [employer] EDSeema Varela RN RN Suleiman Valdivia MD MD sp3 Wilfred Schwarz RN RN rs5 Corrections: (The following items were deleted from the chart) 09:25 09:08 Head C Spine Cap Wo Con+CT.RAD.BRZ ordered. EDMS EDMS
--- NOTE | 2024-04-03 10:27 | ER ---
Nurse's Notes [facility] Name: Michelle Saavedra Age: 68 yrs Sex: Female : 1955 Arrival Date: 04/03/2024 Time: 08:37 Bed 16 Private MD: Diagnosis: Nasal fracture, facial contusions, cervical strain, fall, closed head injury Presentation: 04/03 09:05 Chief complaint: Left neck pain after mechanical fall from standing 3 days ago. hb Bruising noted to left face and left upper arm. Coronavirus screen: At this time, the client does not indicate any symptoms associated with coronavirus-19. Ebola Screen: No symptoms or risks identified at this time. Initial Sepsis Screen: Does the patient meet any 2 criteria? No. Patient's initial sepsis screen is negative. Does the patient have a suspected source of infection? No. Patient's initial sepsis screen is negative. Risk Assessment: Do you want to hurt yourself or someone else? Patient reports no desire to harm self or others. Onset of symptoms was March 31, 2024. 09:05 Method Of Arrival: Ambulatory 09:05 Acuity: JAKUB 3 hb Triage Assessment: 09:04 General: Appears in no apparent distress. uncomfortable, Behavior is calm, cooperative. rs5 Historical: - Allergies: 09:07 No Known Allergies; hb - Home Meds: 09:07 Warfarin Oral [Active]; atorvastatin oral [Active]; Amiodarone Oral [Active]; hb Metoprolol Tartrate Oral [Active]; furosemide Oral [Active]; - PMHx: 09:07 Atrial fibrillation; COPD; Hypercholesterolemia; Hypertensive disorder; mechanical hb valve; - PSHx: 09:07 mechanical valve; Right hip replacement; hb - Immunization history:: Adult Immunizations up to date. - Infectious Disease History:: Denies. - Social history:: Smoking status: Patient/guardian denies using tobacco, but has a distant history of tobacco abuse. Screenin:01 [facility] ED Fall Risk Assessment (Adult) History of falling in the last 3 months, rs5 including since admission Yes- single mechanical fall (1 pt) Confusion or Disorientation No (0 pts) Intoxicated or Sedated No (0 pts) Impaired Gait Yes (1 pt) Mobility Assist Device Used Yes (1 pt) Altered Elimination No (0 pt) Score/Fall Risk Level 3 or more points = High Risk Oriented to surroundings, Maintained a safe environment. Abuse screen: Denies threats or abuse. Nutritional screening: No deficits noted. Tuberculosis screening: No symptoms or risk factors identified. Assessment: 09:05 General: Appears in no apparent distress. uncomfortable, Behavior is calm, cooperative. rs5 Pain: Complains of pain in left side of neck and left upper arm Pain currently is 8 out of 10 on a pain scale. Quality of pain is described as aching, Is continuous. Neuro: Level of Consciousness is awake, alert, obeys commands, Oriented to person, place, time, situation. Cardiovascular: Patient's skin is warm and dry. Respiratory: Airway is patent Respiratory effort is even, unlabored, Respiratory pattern is regular, symmetrical. GI: Abdomen is round non-distended, Abd is soft and non tender X 4 quads. : No signs and/or symptoms were reported regarding the genitourinary system. EENT: No signs and/or symptoms were reported regarding the EENT system. Derm: Skin is intact, Skin is pink, warm \T\ dry. Musculoskeletal: Range of motion: limited in neck and left upper arm. 10:07 Reassessment: Patient and/or family updated on plan of care and expected duration. Pain rs5 level reassessed. Patient is alert, oriented x 3, equal unlabored respirations, skin warm/dry/pink. 10:45 Reassessment: Patient and/or family updated on plan of care and expected duration. Pain rs5 level reassessed. Patient is alert, oriented x 3, equal unlabored respirations, skin warm/dry/pink. Vital Signs: 09:05 BP 167 / 60; Pulse 60; Resp 16; Temp 97.8(TE); Pulse Ox 100% on R/A; Weight 47.63 kg; hb Height 5 ft. 2 in. ; Pain 8/10; 09:40 BP 152 / 61; Pulse 71; Resp 17; Pulse Ox 98% on R/A; rs5 10:48 BP 155 / 66; Pulse 77; Resp 17; Pulse Ox 99% on R/A; rs5 09:05 Body Mass Index 19.20 (47.63 kg, 157.48 cm) hb 09:05 Pain Scale: Adult hb ED Course: 08:43 Patient arrived in ED. sj2 09:02 Schwarz, Wilfred, PHILLIP is Primary Nurse. rs5 09:03 Suleiman Valdivia MD is Attending Physician. sp3 09:04 Patient has correct armband on for positive identification. Placed in gown. Bed in low rs5 position. Call light in reach. Side rails up X2. 09:05 Inserted saline lock: 20 gauge in left antecubital area, using aseptic technique. Blood rs5 collected. Flushed with 10 mL NS. 09:07 Triage completed. hb 09:10 Arm band placed on. hb 09:59 CT Facial Bones W/O Con In Process Unspecified. EDMS 10:00 Head C Spine Mpr Wo Con In Process Unspecified. EDMS 10:00 Chest Abd Pelvis Wo Con In Process Unspecified. EDMS 10:55 Provided Education on: discharge instructions . rs5 11:00 No provider procedures requiring assistance completed. IV discontinued, intact, rs5 bleeding controlled, No redness/swelling at site. Pressure dressing applied. Administered Medications: 09:31 Drug: morphine IVP or IV 2 mg IVP once over 4 mins Route: IVP; Infused Over: 4 mins; rs5 Site: left antecubital; 09:55 Follow up: Response: No adverse reaction; Pain is decreased rs5 09:31 Drug: Ondansetron IVP 4 mg IVP once; over 2 minutes Route: IVP; Site: left antecubital; rs5 09:45 Follow up: Response: No adverse reaction rs5 10:37 Drug: morphine IVP or IV 4 mg IVP once over 4 mins Route: IVP; Infused Over: 4 mins; rs5 Site: left antecubital; 11:00 Follow up: Response: No adverse reaction; Pain is decreased rs5 10:37 Not Given (Physician Discretion): morphineor iv 4 mg IVP once over 4 mins rs5 Medication: 09:20 VIS not applicable for this client. rs5 Outcome: 10:26 Discharge ordered by . sp3 11:00 Patient left the ED. rs5 11:00 Discharged to home via wheelchair, with family, rs5 11:00 Condition: stable 11:00 Discharge instructions given to patient, family, Instructed on discharge instructions, follow up and referral plans. medication usage, Demonstrated understanding of instructions, follow-up care, medications, Prescriptions given X 1, Signatures: Dispatcher [facility] EDMS Seema Bruno RN RN Suleiman Valdivia MD MD sp3 Wilfred Schwarz RN RN rs5 Sally Wise sj2 Corrections: (The following items were deleted from the chart) 15:32 11:13 Patient left the ED. rs5 rs5 15:35 10:55 Response: No adverse reaction; Pain is decreased rs5 rs5
[2024-04-03] MEDS ORDERED: MORPHINE 4 MG/ML SYR ONE (10:36)
[2024-04-03 11:17] VITALS: BP 167/60; TEMP 97.8; O2SAT 100
== END 2024-04-03 11:13 | disposition home or self-care (01) ==
LOC: ER 08:37
DX: S02.2XXA Fracture of nasal bones, initial encounter for closed fracture (principal); S16.1XXA Strain of muscle, fascia and tendon at neck level, initial encounter; W18.30XA Fall on same level, unspecified, initial encounter; Y93.9 Activity, unspecified; Y92.9 Unspecified place or not applicable; J44.9 Chronic obstructive pulmonary disease, unspecified; I48.11 Longstanding persistent atrial fibrillation; Z96.641 Presence of right artificial hip joint; I10 Essential (primary) hypertension; E78.00 Pure hypercholesterolemia, unspecified; Z95.2 Presence of prosthetic heart valve
CPT/HCPCS: 80048; 36415; 85610; 85027; 70450; 71250; 72125; 70486; 76377; 74176; 96375; 96374; 99284; J2270; J2405

== ENCOUNTER 2024-05-16 12:49 | Emergency (ER) | payer OTHER ==
[2024-05-16] MEDS ORDERED: FENTANYL CITR 100 MCG/2 ML ONE (13:59)
[2024-05-16 14:47] LABS: Protime INR 4.06
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
[2024-05-16 14:56] LABS: Absolute Basophils 0.1 K/uL (0-0.5); Absolute Eosinophils 0.3 K/uL (0-0.5); Absolute Lymphocytes (CBC) 0.8 K/uL (0.7-4.9); Absolute Monocytes 0.7 K/uL (0.1-1.3); Absolute Neutrophil 6.3 K/uL (1.8-8.0); Basophils % 1.1 % (0-1.3); Eosinophils % 3.2 % (0-4.4); Hematocrit 27.3 % (36.0-45.0); Hemoglobin 8.8 g/dL (12.0-15.0); Lymphocytes % 10.4 % (15.3-44.8); MCH 28.1 pg (27.0-35.0); MCHC 32.3 g/dL (32.0-36.0); MCV 87.1 fL (80-100); MPV 8.8 fL (7.6-11.3); Monocytes % 8.4 % (3.3-12.3); Neutrophils % 76.9 % (41.7-73.7); Nucleated Red Blood Cells % 0.1 % (0-0); Platelets 274 thou/uL (152-406); RBC Red Blood Cell Count 3.14 M/uL (3.86-4.86); Red Cell Distribution Width 17.9 % (12.1-15.2)
[2024-05-16 15:00] LABS: Albumin 2.9 g/dL (3.4-5.0); Albumin/Globulin Ratio 0.8 (1.1-1.8); Anion Gap 9.7 mEq/L (5.0-15.0); Bilirubin Direct 0.3 mg/dL (0-0.2); Bilirubin Indirect, Calculated 0.5 mg/dL (0.2-0.8); Bilirubin Total 0.8 mg/dL (0.2-1.0); Globulin 3.7 g/dL (2.3-3.5); Potassium 3.7 mEq/L (3.5-5.1); Protein, Total 6.6 g/dL (6.4-8.2); Troponin High Sensitivity 15.6 pg/mL (<58.9)
--- NOTE | 2024-05-16 15:02 | RAD REPORT ---
EXAM: CT brain without contrast HISTORY: dizziness, headache COMPARISON: 04/03/2024 TECHNIQUE: Multiple contiguous axial images were obtained and a CT of the brain without contrast. Sag ittal and coronal reformats were performed. FINDINGS: No evidence of hydrocephalus, intracranial hemorrhage, or extra-axial fluid collection. Mild brain atrophy with mild periventricular and deep white matter chronic microvascular ischemic ch anges present. The calvarium is intact. The visualized paranasal sinuses and mastoid air cells are essentially clear . IMPRESSION: No evidence of acute intracranial abnormality. EXAM: CT of the cervical spine without contrast HISTORY: dizziness, headache COMPARISON: None TECHNIQUE: Multiple contiguous axial images were obtained in a CT of the cervical spine without contr ast. Sagittal and coronal reformats were performed. FINDINGS: The vertebral bodies demonstrate normal height and alignment. No evidence of acute fracture or subluxation.. Mild multilevel endplate, uncovertebral joint, and facet degenerative changes, contributing to mild degrees of neural foraminal narrowing most notably at C4-5 and C5-6. Findings ar e stable. No prevertebral soft tissue swelling is seen. The posterior facets are well aligned. Normal alignment of the skull base with the cervical spine is seen. The lung apices are separately evaluated on CT chest of the same day. IMPRESSION: No evidence of acute osseous abnormality of the cervical spine. Stable mild multilevel degenerative c hanges as above.
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
[2024-05-16] MEDS ORDERED: METHOCARBAMOL 1,000 MG/10 ML VIAL ONE (16:21)
[2024-05-16] MEDS ORDERED: FUROSEMIDE 20 MG/ 2ML VIAL ONE (16:21)
[2024-05-16] MEDS ORDERED: NA CHLORIDE 0.9% 100 ML ONE (16:21)
[2024-05-16] MEDS ORDERED: HYDRALAZINE HCL 20 MG/ML VIAL ONE (17:38)
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
[2024-05-16] MEDS ORDERED: HYDROCODONE/APAP 10/325 TAB ONE (17:55)
[2024-05-16 18:39] VITALS: TEMP 97.7
[2024-05-16 18:55] VITALS: BP 176/59; O2SAT 100
== END 2024-05-16 18:08 | disposition home or self-care (01) ==
LOC: ER 12:49
DX: R51.9 Headache, unspecified (principal); M54.2 Cervicalgia; I11.0 Hypertensive heart disease with heart failure; I50.9 Heart failure, unspecified; V49.50XA Passenger injured in collision with unspecified motor vehicles in traffic accident, initial encounter; I10 Essential (primary) hypertension; Z96.641 Presence of right artificial hip joint
CPT/HCPCS: 85025; 80048; 36415; 83735; 85610; 80076; 84484; 70450; 71250; 72125; 74176; 71045; 99284; J0360; J1940; J3010; J2800; 93005

== ENCOUNTER 2024-07-06 19:51 | Emergency (ER) | payer OTHER ==
[2024-07-06] MEDS ORDERED: METOCLOPRAMIDE 10 MG/2mL INJ ONE (20:47)
[2024-07-06] MEDS ORDERED: droPERidol 5 MG/2 ML VIAL ONE (20:47)
[2024-07-06 20:52] LABS: Absolute Basophils 0.1 K/uL (0-0.5); Absolute Lymphocytes (CBC) 0.8 K/uL (0.7-4.9); Absolute Monocytes 0.6 K/uL (0.1-1.3); Basophils % 1.2 % (0-1.3); Eosinophils % 0.8 % (0-4.4); Hematocrit 28.7 % (36.0-45.0); Hemoglobin 9.1 g/dL (12.0-15.0); MCH 26.8 pg (27.0-35.0); MCHC 31.8 g/dL (32.0-36.0); MCV 84.5 fL (80-100); MPV 7.6 fL (7.6-11.3); Monocytes % 10.4 % (3.3-12.3); Neutrophils % 72.6 % (41.7-73.7); Nucleated Red Blood Cells % 0.1 % (0-0); Platelets 250 thou/uL (152-406); Red Cell Distribution Width 16.8 % (12.1-15.2)
[2024-07-06 21:03] LABS: PT Prothrombin Time 28.7 SECONDS (10-13.0); Protime INR 2.64
--- NOTE | 2024-07-06 21:08 | RAD REPORT ---
EXAMINATION: ONE VIEW CHEST XR CLINICAL INDICATION: CHEST PAIN TECHNIQUE: Frontal chest projection is submitted. Examination is limited by patient positioning and t echnique. COMPARISON: 05/16/2024 FINDINGS: The lungs are diffusely emphysematous but grossly clear. The heart is upper limit of normal in size. No displaced fractures identified. Sternotomy wires. IMPRESSION: COPD without an acute process suspected.
[2024-07-06 21:21] LABS: Albumin 3.6 g/dL (3.4-5.0); Albumin/Globulin Ratio 0.9 (1.1-1.8); Bilirubin Direct 0.2 mg/dL (0-0.2); Bilirubin Indirect, Calculated 0.2 mg/dL (0.2-0.8); Bilirubin Total 0.4 mg/dL (0.2-1.0); Globulin 3.8 g/dL (2.3-3.5); Protein, Total 7.4 g/dL (6.4-8.2); Troponin High Sensitivity 9.5 pg/mL (<58.9)
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
[2024-07-06 22:54] VITALS: TEMP 98.2
[2024-07-06 23:02] VITALS: BP 109/58; O2SAT 98
== END 2024-07-06 22:32 | disposition home or self-care (01) ==
LOC: ER 19:51
DX: G44.209 Tension-type headache, unspecified, not intractable (principal); R07.89 Other chest pain; M25.512 Pain in left shoulder; M25.511 Pain in right shoulder; I10 Essential (primary) hypertension; J44.9 Chronic obstructive pulmonary disease, unspecified
CPT/HCPCS: 93005; 85025; 80048; 36415; 83735; 85610; 80076; 84484; 83880; 71045; 96375; 96374; 99285; J2765; J1790

== ENCOUNTER 2024-07-25 04:35 | Emergency (ER) | payer MEDICARE, OTHER ==
[2024-07-25 07:01] LABS: PT Prothrombin Time 54.2 SECONDS (10-13.0); Protime INR 5.14
[2024-07-25 07:07] LABS: Absolute Basophils 0.1 K/uL (0-0.5); Absolute Eosinophils 0.2 K/uL (0-0.5); Absolute Lymphocytes (CBC) 0.9 K/uL (0.7-4.9); Absolute Monocytes 0.6 K/uL (0.1-1.3); Absolute Neutrophil 4.4 K/uL (1.8-8.0); Eosinophils % 2.8 % (0-4.4); Hematocrit 30.5 % (36.0-45.0); Hemoglobin 9.9 g/dL (12.0-15.0); MCH 26.8 pg (27.0-35.0); MCHC 32.6 g/dL (32.0-36.0); MCV 82.3 fL (80-100); MPV 7.7 fL (7.6-11.3); Monocytes % 9.1 % (3.3-12.3); Neutrophils % 72.1 % (41.7-73.7); Nucleated Red Blood Cells % 0.1 % (0-0); Platelets 276 thou/uL (152-406); Red Cell Distribution Width 17.3 % (12.1-15.2)
[2024-07-25 07:08] LABS: Anion Gap 5.5 mEq/L (5.0-15.0); Potassium 3.5 mEq/L (3.5-5.1)
--- NOTE | 2024-07-25 07:51 | RAD REPORT ---
Procedure: Chest Single View HISTORY: Chest pain COMPARISON: May 2024 FINDINGS: The lungs appear clear of acute infiltrate. No significant pleural effusion noted. The heart is moderately to markedly enlarged. Postsurgical changes involve the chest. . IMPRESSION: No acute abnormality is displayed.
--- NOTE | 2024-07-25 08:09 | RAD REPORT ---
EXAMINATION: CT HEAD WITHOUT CONTRAST CT CERVICAL SPINE WITHOUT CONTRAST CLINICAL INDICATION: Head and neck injury status post fall. Head and neck pain TECHNIQUE: Axial CT images from the skull base to the vertex without intravenous contrast. Axial CT i mages through the cervical spine were obtained without intravenous contrast. Sagittal and coronal reformatted images were created from the data set. Coronal and sagittal reformatted images were creat ed from the data set. One or more of the following dose reduction techniques were used: Automated exposure control, adjustment of the mA and/or kV according to patient size, and/or iterative reconstr uction. Unless otherwise specified, incidental findings do not require dedicated imaging follow-up. [id number]. Comparison: May 2024 FINDINGS: An intracranial bleed is not seen. Ventricles are normal in caliber. No significant hypodensity within the brain No extra-axial fluid collection. No fluid within the sinuses/mastoids No fracture or dislocation is seen involving the cervical spine. IMPRESSION: No acute intracranial abnormality noted A cervical fracture is not seen. If the patient continues to have symptoms to suggest acute SUPERINTENDENT PRESSURE/spinal pathology then MRI would be rec ommended
[2024-07-25] MEDS ORDERED: ONDANSETRON 4 MG/2 ML VIAL ONE (08:21)
[2024-07-25] MEDS ORDERED: MORPHINE 4 MG/ML SYR ONE (08:21)
--- NOTE | 2024-07-25 10:12 | EDPHYS ---
Physician Documentation [facility] Name: Michelle Saavedra Age: 69 yrs Sex: Female : 1955 Arrival Date: 07/25/2024 Time: 04:35 Bed 20 Private MD: ED Physician Eugene Dooley HPI: 07/25 06:23 This 69 yrs old Female presents to ER via Wheelchair with complaints of Fall sp3 Injury head injury from dizziness. 06:23 69-year-old female with atrial fibrillation on warfarin, COPD, hyperlipidemia, sp3 hypertension, aortic stenosis status post valve replacement now presents to the ED with chief complaint dizziness (which is chronic for her) with subsequent fall and "hitting her head really hard". Fall was witnessed by family. She currently endorses headache but denies neck pain, chest pain, shortness of breath, ongoing dizziness, abdominal pain, nausea, vomiting, diarrhea, bleeding, extremity pain, syncope, or any other signs or symptoms on ROS at this time.. Historical: - Allergies: 05:47 No Known Allergies; jj7 - PMHx: 05:47 Atrial fibrillation; COPD; Hypercholesterolemia; Hypertensive disorder; mechanical jj7 valve; - PSHx: 05:47 mechanical valve; Right hip replacement; jj7 - Immunization history:: Adult Immunizations up to date, Client reports having NOT received the Covid vaccine. - Infectious Disease History:: Denies. - Immunization history: Last tetanus immunization: unknown. - Social history:: Smoking status: Patient denies any tobacco usage or history of. Patient/guardian denies using alcohol, street drugs, IV drugs. ROS: 06:25 Constitutional: Negative for fever, chills, and weight loss, Eyes: Negative for injury, sp3 pain, redness, and discharge, Neck: Negative for injury, pain, and swelling, Cardiovascular: Negative for chest pain, palpitations, and edema, Respiratory: Negative for shortness of breath, cough, wheezing, and pleuritic chest pain, Abdomen/GI: Negative for abdominal pain, nausea, vomiting, diarrhea, and constipation, Back: Negative for injury and pain, MS/Extremity: Negative for injury and deformity, Skin: Negative for injury, rash, and discoloration, Psych: Negative for depression, anxiety, suicide ideation, homicidal ideation, and hallucinations, Allergy/Immunology: Negative for hives, rash, and allergies, Endocrine: Negative for neck swelling, polydipsia, polyuria, polyphagia, and marked weight changes, Hematologic/Lymphatic: Negative for swollen nodes, abnormal bleeding, and unusual bruising, 06:25 All other systems are negative, Exam: 06:26 Constitutional: This is a well developed, well nourished patient who is awake, alert, sp3 and in no acute distress. Head/Face: Normocephalic, atraumatic. Eyes: Pupils equal round and reactive to light, extra-ocular motions intact. Lids and lashes normal. Conjunctiva and sclera are non-icteric and not injected. Cornea within normal limits. Periorbital areas with no swelling, redness, or edema. ENT: Nares patent. No nasal discharge, no septal abnormalities noted. External auditory canals are clear. Oropharynx with no redness, swelling, or masses, exudates, or evidence of obstruction, uvula midline. Mucous membranes moist. Neck: Trachea midline, no thyromegaly or masses palpated, and no cervical lymphadenopathy. Supple, full range of motion without nuchal rigidity, or vertebral point tenderness. No Meningismus. Chest/axilla: Normal chest wall appearance and motion. Nontender with no deformity. No lesions are appreciated. Cardiovascular: Regular rate and rhythm with a normal S1 and S2. No gallops, murmurs, or rubs. Normal PMI, no JVD. No pulse deficits. Respiratory: Lungs have equal breath sounds bilaterally, clear to auscultation and percussion. No rales, rhonchi or wheezes noted. No increased work of breathing, no retractions or nasal flaring. Abdomen/GI: Soft, non-tender, with normal bowel sounds. No distension or tympany. No guarding or rebound. No evidence of tenderness throughout. Back: No spinal tenderness. No costovertebral tenderness. Full range of motion. Skin: Warm, dry with normal turgor. Normal color with no rashes, no lesions, and no evidence of cellulitis. MS/ Extremity: Pulses equal, no cyanosis. Neurovascular intact. Full, normal range of motion. Neuro: Awake and alert, GCS 15, oriented to person, place, time, and situation. Cranial nerves II-XII grossly intact. Motor strength 5/5 in all extremities. Sensory grossly intact. Cerebellar exam normal. Normal gait. Psych: Awake, alert, with orientation to person, place and time. Behavior, mood, and affect are within normal limits. Vital Signs: 05:05 BP 167 / 47; Pulse 49; Resp 16; Pulse Ox 99% ; Weight 46.27 kg; Height 5 ft. 2 in. ; jj7 06:00 BP 104 / 39; Pulse 45; Resp 17; Pulse Ox 96% ; jj7 07:21 BP 139 / 47; Pulse 47; Resp 16 S; Pulse Ox 95% on R/A; kc6 08:17 BP 159 / 48; Pulse 44; Resp 17 S; Pulse Ox 95% on R/A; kc6 09:01 BP 167 / 85; Pulse 47; Resp 17 S; Pulse Ox 98% on R/A; kc6 10:18 BP 164 / 50; Pulse 54; Resp 18 S; Pulse Ox 97% on R/A; kc6 05:05 Body Mass Index 18.66 (46.27 kg, 157.48 cm) jj7 [place] Coma Score: 05:05 Eye Response: spontaneous(4). Motor Response: obeys commands(6). Verbal Response: jj7 oriented(5). Total: 15. Trauma Score (Adult): 05:05 Eye Response: spontaneous(1); Verbal Response: oriented(1); Motor Response: obeys jj7 commands(2); Systolic BP: > 89 mm Hg(4); Respiratory Rate: 10 to 29 per min(4); [place] Score: 15; Trauma Score: 12 MDM: 06:03 Medical Screening Exam initiated sp3 06:26 Data reviewed: old medical records, lab test result(s), radiologic studies. ED course: sp3 69-year-old female with fall, head injury while on warfarin. Will obtain CT scan of the head and C-spine coupled with general labs including INR. If workup negative, we will safely discharge patient home. Patient will be signed out to daytime physician for reevaluation and final disposition.. 10:24 Differential diagnosis: Intracranial hemorrhage, concussion. Consideration of rt Admission/Observation Patient was admitted/placed on observation. Patient does have a supratherapeutic INR,, globulins 2.5-3.5. She has mechanical valve, do not want to reverse and cause thrombus. Recommended that she hold her Coumadin for a day, and get it rechecked as soon as possible. CT scan is without bleed, she shows no signs of active bleeding at this time. Headache is improving with treatment in the ED. Patient was observed for some time with no worsening of condition. Patient was deemed stable for discharge, but, I did speak with the patient regarding her INR and the possibility of a delayed bleed. Patient understands that she should return at any time if she has worsening of her headache or neurologic condition to have a repeat scan CT scan of the head.. I considered the following discharge prescriptions or medication management in the emergency department Medications were administered in the Emergency Department. See MAR. Independent interpretation of the following test(s) in the Emergency Department CT Scan: My interpretation is No intracranial hemorrhage seen on interpretation of CT scan images. Care significantly affected by the following chronic conditions: Chronic Obstructive Pulmonary Disease. Counseling: I had a detailed discussion with the patient and/or guardian regarding the historical points, exam findings, and any diagnostic results supporting the discharge/admit diagnosis, lab results, radiology results, the need for outpatient follow up, to return to the emergency department if symptoms worsen or persist or if there are any questions or concerns that arise at home. Response to treatment: the patient's symptoms have markedly improved after treatment. 07/25 06:21 Order name: Basic Metabolic Panel; Complete Time: 07:22 sp3 07/25 06:21 Order name: CBC with Diff; Complete Time: 07:22 sp3 07/25 06:21 Order name: PT-INR; Complete Time: 07:22 sp3 07/25 06:21 Order name: XRAY Chest (1 view); Complete Time: 08:12 sp3 07/25 06:21 Order name: CT Head C Spine; Complete Time: 08:12 sp3 07/25 06:21 Order name: Cardiac monitoring; Complete Time: 06:46 sp3 Administered Medications: 08:38 Drug: morphine IVP or IV 4 mg IVP once over 4 mins Route: IVP; Infused Over: 4 mins; kc6 Site: left antecubital; 10:18 Follow up: Response: No adverse reaction; RASS: Alert and Calm (0) kc6 08:38 Drug: Ondansetron IVP 4 mg IVP once; over 2 minutes Route: IVP; Site: left antecubital; kc6 10:18 Follow up: Response: No adverse reaction kc6 Disposition Summary: 07/25/24 10:12 Discharge Ordered Notes: Location: Home rt Problem: new rt Symptoms: have improved rt Condition: Stable rt Diagnosis - Closed head injury rt - Supratherapeutic INR rt Followup: rt - With: Private Physician - When: 2 - 3 days - Reason: Discharge Instructions: - Discharge Summary Sheet rt - Head Injury, Adult rt - Warfarin Information rt Forms: - Medication Reconciliation Form rt - Antibiotic Education rt - Prescription Opioid Use rt - Patient Portal Instructions rt - Leadership Thank You Letter rt Prescriptions: - Tramadol 50 mg Oral tablet - take 1 tablet ORAL route every 8 hours as needed; 6 tablet; Refills: 0, Product rt Selection Permitted Signatures: Dispatcher [employer] Suleiman Owens MD MD sp3 Helen Kauffman RN RN kc6 Fausto Navarrete RN RN jj7 Eugene Dooley MD MD rt Corrections: (The following items were deleted from the chart) 06:21 06:21 Head C Spine MPR Wo Con+CT.RAD.BRZ ordered. EDMS EDMS
--- NOTE | 2024-07-25 10:12 | ER ---
Nurse's Notes [facility] Name: Michelle Saavedra Age: 69 yrs Sex: Female : 1955 Arrival Date: 07/25/2024 Time: 04:35 Bed 20 Private MD: Diagnosis: Closed head injury;Supratherapeutic INR Presentation: 07/25 05:05 Chief complaint: Patient states: IS ON A "WATER PILL" AND WAS GETTING UP TO USE THE [facility] RESTROOM WHEN SHE TRIPPED AND FELL FORWARD ON HER FACE. NOW HAVING HEAD, NECK, SHOULDER AND BACK PAIN. Mechanism of Injury: Fall from standing position. 05:05 Acuity: JAKUB 3 jj7 05:05 Method Of Arrival: Wheelchair j 07:05 Care prior to arrival: None. Trauma event details: Injury occurred in the [address], Injury occurred: at home. Injury occurred: July 25, 2024. 07:05 Coronavirus screen: At this time, the client does not indicate any symptoms associated [facility] with coronavirus-19. Ebola Screen: No symptoms or risks identified at this time. 07:05 Initial Sepsis Screen: Does the patient meet any 2 criteria? No. Patient's initial [facility] sepsis screen is negative. Does the patient have a suspected source of infection? No. Patient's initial sepsis screen is negative. Risk Assessment: Do you want to hurt yourself or someone else? Patient reports no desire to harm self or others. Onset of symptoms was July 25, 2024. Triage Assessment: 05:45 Pain: Complains of pain in left scapular area and right scapular area. Musculoskeletal: 7 Reports pain in back of head, back of neck and back. Trauma Activation: Not Applicable Physician: ED Physician; Name: ; Notified At: ; Arrived At: Physician: General Surgeon; Name: ; Notified At: ; Arrived At: Physician: Radiology; Name: ; Notified At: ; Arrived At: Physician: Respiratory; Name: ; Notified At: ; Arrived At: Physician: Lab; Name: ; Notified At: ; Arrived At: Historical: - Allergies: 05:47 No Known Allergies; jj7 - PMHx: 05:47 Atrial fibrillation; COPD; Hypercholesterolemia; Hypertensive disorder; mechanical j7 valve; - PSHx: 05:47 mechanical valve; Right hip replacement; jj7 - Immunization history:: Adult Immunizations up to date, Client reports having NOT received the Covid vaccine. - Infectious Disease History:: Denies. - Immunization history: Last tetanus immunization: unknown. - Social history:: Smoking status: Patient denies any tobacco usage or history of. Patient/guardian denies using alcohol, street drugs, IV drugs. Screenin:05 Abuse screen: Denies threats or abuse. Nutritional screening: No deficits noted. jj7 Tuberculosis screening: No symptoms or risk factors identified. 05:47 [facility] ED Fall Risk Assessment (Adult) History of falling in the last 3 months, jj7 including since admission Yes- single mechanical fall (1 pt) Confusion or Disorientation No (0 pts) Intoxicated or Sedated No (0 pts) Impaired Gait No (0 pts) Mobility Assist Device Used No (0 pt) Altered Elimination No (0 pt) Score/Fall Risk Level 0 - 2 = Low Risk Oriented to surroundings, Maintained a safe environment, Educated pt \\T\\ family on fall prevention, incl call for assistance when getting out of bed, Assessed \\T\\ reinforced patient's understanding of fall precautions. Primary Survey: 07:05 NO uncontrolled hemorrhage observed. A: The client is awake and alert. The airway is kc6 patent. Breathing/Chest: Spontaneous respiratory effort, equal unlabored respirations, breath sounds clear bilaterally, regular pattern, symmetrical chest rise and fall. Circulation: No external hemorrhage present. Regular and strong central pulse, skin warm/dry/normal color. Disability Pupils are equal, round, reactive to light and accommodation. Client is alert. Exposure/Environment: All clothing and personal items were removed. Forensic evidence collection is not deemed to be indicated at this time. Items placed in patient belonging bag. There is no evidence of uncontrolled external bleeding. No obvious injuries are noted at this time. A warming method has been applied: A warm blanket has been provided to the patient. 07:21 Reassessment Alertness and Airway: Awake and alert. The airway is patent. Breathing: kc6 Spontaneous respiratory effort, equal unlabored respirations, breath sounds clear bilaterally, regular pattern with symmetrical chest rise and fall. Circulation: No external hemorrhage noted. Regular and strong central pulse, skin warm/dry/normal color. Disability: Pupils Pupils are equal, round, reactive to light and accomodation. Alert. Assessment: 05:05 General: Appears in no apparent distress. comfortable, slender, unkempt, Behavior is jj7 calm, cooperative, appropriate for age, drowsy. Pain: Complains of pain in head, back of neck and back. Musculoskeletal: Reports pain in left scapular area and right scapular area. 07:05 General: Appears in no apparent distress. comfortable, slender, unkempt, Behavior is kc6 cooperative, drowsy. Pain:. Neuro: Level of Consciousness is awake, alert, obeys commands, Oriented to person, place, time, situation, Appropriate for age. Cardiovascular: Capillary refill < 3 seconds. Respiratory: Airway is patent Trachea midline Respiratory effort is even, unlabored, Respiratory pattern is regular, symmetrical. GI: No signs and/or symptoms were reported involving the gastrointestinal system. : No signs and/or symptoms were reported regarding the genitourinary system. EENT: No signs and/or symptoms were reported regarding the EENT system. Derm: No signs and/or symptoms reported regarding the dermatologic system. Skin is intact, is fragile, is thin, with poor turgor Skin is dry, Skin is pale, Skin temperature is warm. Musculoskeletal: Circulation, motion, and sensation intact. Range of motion: intact in all extremities. 08:17 Reassessment: Patient appears in no apparent distress at this time. No changes from kc6 previously documented assessment. Patient and/or family updated on plan of care and expected duration. Pain level reassessed. Patient is alert, oriented x 3, equal unlabored respirations, skin warm/dry/pink. Patient states symptoms have not improved. 09:00 Reassessment: Patient appears in no apparent distress at this time. No changes from kc6 previously documented assessment. Patient and/or family updated on plan of care and expected duration. Pain level reassessed. Patient is alert, oriented x 3, equal unlabored respirations, skin warm/dry/pink. 10:17 Reassessment: Patient appears in no apparent distress at this time. No changes from kc6 previously documented assessment. Patient and/or family updated on plan of care and expected duration. Pain level reassessed. Patient is alert, oriented x 3, equal unlabored respirations, skin warm/dry/pink. Patient states symptoms have improved. Vital Signs: 05:05 BP 167 / 47; Pulse 49; Resp 16; Pulse Ox 99% ; Weight 46.27 kg; Height 5 ft. 2 in. ; jj7 06:00 BP 104 / 39; Pulse 45; Resp 17; Pulse Ox 96% ; jj7 07:21 BP 139 / 47; Pulse 47; Resp 16 S; Pulse Ox 95% on R/A; kc6 08:17 BP 159 / 48; Pulse 44; Resp 17 S; Pulse Ox 95% on R/A; kc6 09:01 BP 167 / 85; Pulse 47; Resp 17 S; Pulse Ox 98% on R/A; kc6 10:18 BP 164 / 50; Pulse 54; Resp 18 S; Pulse Ox 97% on R/A; kc6 05:05 Body Mass Index 18.66 (46.27 kg, 157.48 cm) jj7 [place] Coma Score: 05:05 Eye Response: spontaneous(4). Motor Response: obeys commands(6). Verbal Response: jj7 oriented(5). Total: 15. Trauma Score (Adult): 05:05 Eye Response: spontaneous(1); Verbal Response: oriented(1); Motor Response: obeys jj7 commands(2); Systolic BP: > 89 mm Hg(4); Respiratory Rate: 10 to 29 per min(4); [place] Score: 15; Trauma Score: 12 ED Course: 04:36 Patient arrived in ED. jj6 05:05 Patient has correct armband on for positive identification. Bed in low position. Call jj7 light in reach. Side rails up X2. 05:34 Suleiman Valdivia MD is Attending Physician. sp3 05:36 Fausto Navarrete, PHILLIP is Primary Nurse. jj7 05:41 Triage completed. jj7 05:45 Arm band placed on right wrist. Patient placed in the treatment room, on a stretcher. jj7 06:38 XRAY Chest (1 view) In Process Unspecified. EDMS 06:40 Inserted saline lock: 20 gauge in left antecubital area, using aseptic technique. Blood jj7 collected. Flushed with 10 mL NS. 06:46 Basic Metabolic Panel Sent. jj7 06:46 CBC with Diff Sent. jj7 06:46 PT-INR Sent. jj7 06:57 Attending Physician role handed off by Suleiman Valdivia MD rt 06:57 Eugene Dooley MD is Attending Physician. rt 07:00 Report received from PHILLIP MONROY. kc6 07:03 Report given to HELEN FISHER. jj7 07:05 Patient has correct armband on for positive identification. Bed in low position. Call kc6 light in reach. Side rails up X2. Pulse ox on. NIBP on. Door closed. Noise minimized. Lights dimmed. Warm blanket given. Pillow given. Verbal reassurance given. 07:05 Thermoregulation: warm blanket given to patient. kc6 07:18 Patient maintains SpO2 saturation greater than 95% on room air. kc6 07:[address] via stretcher. kc6 07:31 CT Head C Spine In Process Unspecified. EDMS 10:33 Assisted to bathroom. kc6 10:33 No provider procedures requiring assistance completed. IV discontinued, intact, kc6 bleeding controlled, No redness/swelling at site. Pressure dressing applied. 10:34 Provided Education on: fall precautions, signs and symptoms of stroke. kc6 Administered Medications: 08:38 Drug: morphine IVP or IV 4 mg IVP once over 4 mins Route: IVP; Infused Over: 4 mins; kc6 Site: left antecubital; 10:18 Follow up: Response: No adverse reaction; RASS: Alert and Calm (0) kc6 08:38 Drug: Ondansetron IVP 4 mg IVP once; over 2 minutes Route: IVP; Site: left antecubital; kc6 10:18 Follow up: Response: No adverse reaction kc6 Medication: 05:47 VIS not applicable for this client. jj7 Outcome: 10:12 Discharge ordered by . rt 10:33 Discharged to home via wheelchair, with family, kc6 10:33 Condition: good 10:33 Discharge instructions given to patient, family, Instructed on discharge instructions, follow up and referral plans. no drinking with medication, no driving heavy equipment, medication usage, safety practices, Demonstrated understanding of instructions, follow-up care, medications, Prescriptions given X 1, 10:34 Patient left the ED. kc6 Signatures: Dispatcher [employer] EDMS Suleiman Valdivia MD MD sp3 Rachelle Tinajero jj6 Helen Kauffman, RN RN kc6 Fausto Navarrete RN RN jalex7 Eugene Dooley MD MD rt
[2024-07-25 11:24] VITALS: BP 164/50; O2SAT 97
== END 2024-07-25 10:34 | disposition home or self-care (01) ==
LOC: ER 04:35
DX: S09.90XA Unspecified injury of head, initial encounter (principal); R79.1 Abnormal coagulation profile; W18.30XA Fall on same level, unspecified, initial encounter; I48.91 Unspecified atrial fibrillation; Z79.01 Long term (current) use of anticoagulants; I10 Essential (primary) hypertension; J44.9 Chronic obstructive pulmonary disease, unspecified; Z96.641 Presence of right artificial hip joint
CPT/HCPCS: 85025; 80048; 36415; 85610; 70450; 72125; 71045; 96375; 96374; 99285; J2405

== ENCOUNTER 2024-08-21 12:12 | Inpatient (IN) | payer MEDICARE, OTHER ==
--- NOTE | 2024-08-21 12:57 | RAD REPORT ---
EXAMINATION: ONE VIEW CHEST XR CLINICAL INDICATION: CHEST PAIN TECHNIQUE: Frontal chest projection is submitted. Examination is limited by patient positioning and t echnique. COMPARISON: 07/25/2024 FINDINGS: The lungs are diffusely emphysematous but grossly clear. The heart is moderately enlarged in size. No displaced fractures identified. Sternotomy wires. Aortic atherosclerosis. IMPRESSION: COPD without an acute process suspected.
[2024-08-21 13:11] LABS: Anion Gap 10.2 mEq/L (5.0-15.0); Potassium 4.2 mEq/L (3.5-5.1); Troponin High Sensitivity 14.7 pg/mL (<58.9)
[2024-08-21 13:15] LABS: Absolute Basophils 0.1 K/uL (0-0.5); Absolute Eosinophils 0.1 K/uL (0-0.5); Absolute Lymphocytes (CBC) 0.8 K/uL (0.7-4.9); Absolute Monocytes 0.6 K/uL (0.1-1.3); Absolute Neutrophil 4.6 K/uL (1.8-8.0); Basophils % 1.3 % (0-1.3); Eosinophils % 1.2 % (0-4.4); Hemoglobin 8.8 g/dL (12.0-15.0); Lymphocytes % 13.4 % (15.3-44.8); MCH 27.3 pg (27.0-35.0); MCHC 32.5 g/dL (32.0-36.0); MCV 84.1 fL (80-100); MPV 8.2 fL (7.6-11.3); Monocytes % 9.1 % (3.3-12.3); Nucleated Red Blood Cells % 0.1 % (0-0); Platelets 290 thou/uL (152-406); RBC Red Blood Cell Count 3.21 M/uL (3.86-4.86); Red Cell Distribution Width 18.8 % (12.1-15.2)
--- NOTE | 2024-08-21 14:02 | ER ---
Nurse's Notes [facility] Name: Michelle Saavedra Age: 69 yrs Sex: Female : 1955 Arrival Date: 08/21/2024 Time: 12:12 Bed 16 Private MD: Diagnosis: Chest pain, unspecified;Essential (primary) hypertension;Elevated BNP Presentation: 08/21 12:18 Chief complaint: EMS states: they were toned out for left sided chest and arm pain that kc6 began at 0700. Coronavirus screen: At this time, the client does not indicate any symptoms associated with coronavirus-19. Ebola Screen: No symptoms or risks identified at this time. Initial Sepsis Screen: Does the patient meet any 2 criteria? No. Patient's initial sepsis screen is negative. Does the patient have a suspected source of infection? No. Patient's initial sepsis screen is negative. Risk Assessment: Do you want to hurt yourself or someone else? Patient reports no desire to harm self or others. Onset of symptoms was August 21, 2024. 12:18 Method Of Arrival: EMS: [facility] 6 12:18 Acuity: JAKBU 3 6 12:20 Care prior to arrival: Medication(s) given: ASA, 81 mg, x 4, IV initiated. 22 GA, in kc6 the right wrist. Historical: - Allergies: 12:19 No Known Allergies; kc6 - PMHx: 12:19 mechanical valve; Hypertensive disorder; Hypercholesterolemia; COPD; Atrial kc6 fibrillation; - PSHx: 12:19 Right hip replacement; mechanical valve; kc6 - Immunization history:: Adult Immunizations not up to date. - Infectious Disease History:: Denies. - Social history:: Smoking status: Patient denies any tobacco usage or history of. Screenin:21 [facility] ED Fall Risk Assessment (Adult) History of falling in the last 3 months, kc6 including since admission No falls in past 3 months (0 pts) Confusion or Disorientation No (0 pts) Intoxicated or Sedated No (0 pts) Impaired Gait No (0 pts) Mobility Assist Device Used No (0 pt) Altered Elimination No (0 pt) Score/Fall Risk Level 0 - 2 = Low Risk Oriented to surroundings. Abuse screen: Denies threats or abuse. Denies injuries from another. Nutritional screening: No deficits noted. Tuberculosis screening: No symptoms or risk factors identified. Assessment: 12:18 General: Appears in no apparent distress. uncomfortable, slender, unkempt, Behavior is kc6 calm, cooperative, appropriate for age. Pain: Complains of pain in chest and left arm Pain radiates to left arm Pain began 0700. Neuro: Level of Consciousness is awake, alert, obeys commands, Oriented to person, place, time, situation, Appropriate for age. Cardiovascular: Reports chest pain, Capillary refill < 3 seconds Rhythm is atrial fibrillation. Respiratory: Airway is patent Trachea midline Respiratory effort is even, unlabored, Respiratory pattern is regular, symmetrical. GI: No signs and/or symptoms were reported involving the gastrointestinal system. : No signs and/or symptoms were reported regarding the genitourinary system. EENT: No signs and/or symptoms were reported regarding the EENT system. Derm: No signs and/or symptoms reported regarding the dermatologic system. Skin is intact, is fragile, is thin, with poor turgor Skin is dry, Skin is pale, Skin temperature is warm. Musculoskeletal: No signs and/or symptoms reported regarding the musculoskeletal system. Circulation, motion, and sensation intact. Range of motion: intact in all extremities. 13:18 Reassessment: Patient appears in no apparent distress at this time. No changes from kc6 previously documented assessment. Patient and/or family updated on plan of care and expected duration. Pain level reassessed. Patient is alert, oriented x 3, equal unlabored respirations, skin warm/dry/pink. 14:18 Reassessment: Patient appears in no apparent distress at this time. No changes from kc6 previously documented assessment. Patient and/or family updated on plan of care and expected duration. Pain level reassessed. Patient is alert, oriented x 3, equal unlabored respirations, skin warm/dry/pink. Vital Signs: 12:18 BP 138 / 83; Pulse 73; Resp 15 S; Pulse Ox 100% on R/A; Weight 46.27 kg (M); Height 5 kc6 ft. 3 in. (R); 13:47 BP 146 / 77; Pulse 71; Resp 19 S; Pulse Ox 100% on R/A; kc6 14:21 BP 142 / 83; Pulse 72; Resp 17 S; Pulse Ox 99% on R/A; kc6 12:18 Body Mass Index 18.07 (46.27 kg, 160.02 cm) kc6 ED Course: 12:18 Patient arrived in ED. kc6 12:18 Ean Dumont MD is Attending Physician. rn 12:19 Triage completed. kc6 12:19 Arm band placed on. kc6 12:21 Patient has correct armband on for positive identification. Placed in gown. Bed in low kc6 position. Call light in reach. Side rails up X2. interior design professor on. Pulse ox on. NIBP on. Door closed. Noise minimized. Lights dimmed. Warm blanket given. Pillow given. Verbal reassurance given. 12:21 Maintain EMS IV. Dressing intact. Good blood return noted. Site clean \T\ dry. Gauge \T\ donnell 6 site: 22G RWRIST. Flushed with 10 mL NS. Patient maintains SpO2 saturation greater than 95% on room air. 12:22 Helen Kauffman RN is Primary Nurse. kc6 12:25 Attending Physician role handed off by Ean Dumont MD ms3 12:25 Jesus Alberto Edwards DO is Attending Physician. ms3 12:35 XRAY Chest (1 view) In Process Unspecified. EDMS 12:47 Initial lab(s) drawn, by ri, sent to lab. EKG done, by ED staff, reviewed by Jesus Alberto Edwards DO. 13:59 Dontrell Antoine MD is Hospitalizing Provider. ms3 14:57 Assisted to bedside commode. Repositioned patient. Linen changed. kc6 15:12 Head Brain Wo Cont In Process Unspecified. EDMS 18:11 No provider procedures requiring assistance completed. Patient admitted, IV remains in kc6 place. Administered Medications: 14:47 Drug: morphine IVP or IV 4 mg IVP once over 4 mins Route: IVP; Infused Over: 4 mins; kc6 Site: right wrist; 14:47 Drug: Ondansetron IVP 4 mg IVP once; over 2 minutes Route: IVP; Site: right wrist; kc6 Medication: 18:12 VIS not applicable for this client. kc6 Outcome: 14:01 Decision to Hospitalize by Provider. ms3 18:11 Admitted to Med/surg accompanied by tech, family with patient, via wheelchair, room kc6 405, with chart, 18:11 Condition: good 18:11 Instructed on the need for admit, 18:12 Patient left the ED. kc6 Signatures: Dispatcher [employer] EDEna Dotson MD MD rn Sims, Marcus, DO DO ms3 Helen Kauffman RN RN kc6
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
[2024-08-21] MEDS ORDERED: MORPHINE 4 MG/ML SYR ONE (14:32)
[2024-08-21] MEDS ORDERED: ONDANSETRON 4 MG/2 ML VIAL ONE (14:32)
[2024-08-21] MEDS ORDERED: ACETAMINOPHEN 500 MG TAB PO PRN (14:52)
[2024-08-21] MEDS ORDERED: ALBUTEROL 2.5 MG/3 ML NEB SOL NEB PRN (14:52)
[2024-08-21] MEDS ORDERED: ONDANSETRON 4 MG/2 ML VIAL IV PRN (14:52)
[2024-08-21] MEDS ORDERED: HYDRALAZINE HCL 20 MG/ML VIAL IV PRN (14:59)
[2024-08-21 15:04] LABS: PT Prothrombin Time 23.3 SECONDS (10-13.0); Protime INR 2.12
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
[2024-08-21] MEDS: METOPROLOL TAR 25 MG TAB PO SCH (20:11)
[2024-08-21] MEDS: WARFARIN SODIUM 2 MG TAB PO SCH (20:13)
[2024-08-21] MEDS: MORPHINE 2 MG/ML SYR IV PRN (20:13)
[2024-08-21] MEDS: NA CHLORIDE 0.9% 1,000 ML IV SCH (20:17)
[2024-08-21] MEDS: ATORVASTATIN 40 MG TAB PO SCH (20:28)
[2024-08-21 20:52] VITALS: BMI 18.0
--- NOTE | 2024-08-21 21:59 | RAD REPORT ---
EXAM: CT brain without contrast HISTORY: fall 2 days ago COMPARISON: 12/11/2022 TECHNIQUE: Multiple contiguous axial images were obtained and a CT of the brain without contrast. Sag ittal and coronal reformats were performed. One or more of the following dose reduction techniques were used: Automated exposure control, adjustm ent of the mA and/or kV according to patient size, and/or iterative reconstruction. FINDINGS: No evidence of hydrocephalus, intracranial hemorrhage, or extra-axial fluid collection. The brain is normal in morphology. No evidence of midline shift or areas of brain edema. The calvarium is intact. The visualized paranasal sinuses and mastoid air cells are essentially clear . IMPRESSION: No evidence of acute intracranial abnormality. Electronically signed by: Kevin Benz MD 08/21/2024 03:40 PM CDT Due to temporary technical issues with the PACS/[employer] reporting system, reports are being purvi d by the in-house radiologist without review as a courtesy to ensure prompt reporting the interpreting radiologist is fully responsible for the content of the report. Transcribed Date/Time: 08/21/2024 9:58 PM
--- NOTE | 2024-08-21 22:00 | RAD REPORT ---
EXAM: CT CHEST, ABDOMEN AND PELVIS WITH CONTRAST CLINICAL INDICATION: chest pain TECHNIQUE: CT chest, abdomen and pelvis was performed, following the administration of contrast, as p er department protocol. Axial, sagittal and coronal reconstructions were obtained. One or more of the following dose reduction techniques were used: Automated exposure control, adjustment of the mA a nd/or kV according to patient size, and/or iterative reconstruction. Unless otherwise specified, incidental findings do not require dedicated imaging follow-up. COMPARISON: 09/11/2023 FINDINGS: LUNGS: Subtle areas of groundglass opacity in the left upper lobe. No worrisome nodule, mass or infil trate seen. Extensive atherosclerosis of the thoracic aorta. Small hiatal hernia. PLEURA: No pleural effusion. No pneumothorax. MEDIASTINUM AND LYMPH NODES: No mediastinal mass or fluid collection. Normal size mediastinal, hilar, and axillary lymph nodes. OSSEOUS STRUCTURES AND CHEST WALL: Intact. LIVER: Normal in size and contour. No focal lesion or biliary dilatation. Cholelithiasis. PANCREAS: No mass, ductal dilation, or kyle-pancreatic fluid. SPLEEN: Normal size. No focal lesion. ADRENALS: Normal; no mass. KIDNEYS: Normal size and contour. No hydronephrosis. URINARY BLADDER: Normal contour. GASTROINTESTINAL TRACT: No bowel obstruction, free air, significant free fluid or abscess. Moderat e stool is present throughout the colon. APPENDIX: Normal appendix. LYMPH NODES: No lymphadenopathy. MUSCULOSKELETAL: Moderate chronic wedge compression deformity L1. Moderate L5-S1 spondylosis. Right t otal hip arthroplasty. OTHER: Aortoiliac atherosclerosis. IMPRESSION: No acute abnormalities seen in the chest, abdomen or pelvis. Cholelithiasis. Moderate stool is present throughout the colon. Electronically signed by: Kevin Benz MD 08/21/2024 03:57 PM CDT Due to temporary technical issues with the PACS/[employer] reporting system, reports are being purvi d by the in-house radiologist without review as a courtesy to ensure prompt reporting the interpreting radiologist is fully responsible for the content of the report. Transcribed Date/Time: 08/21/2024 10:00 PM
[2024-08-22] MEDS: PANTOPRAZOLE 40MG TABLET PO SCH (05:14)
[2024-08-22 06:01] LABS: Absolute Basophils 0.1 K/uL (0-0.5); Absolute Eosinophils 0.2 K/uL (0-0.5); Absolute Lymphocytes (CBC) 0.8 K/uL (0.7-4.9); Absolute Monocytes 0.5 K/uL (0.1-1.3); Absolute Neutrophil 4.1 K/uL (1.8-8.0); Basophils % 1.2 % (0-1.3); Eosinophils % 3.8 % (0-4.4); Hematocrit 26.2 % (36.0-45.0); Hemoglobin 8.4 g/dL (12.0-15.0); MCH 26.9 pg (27.0-35.0); MCHC 31.9 g/dL (32.0-36.0); MCV 84.3 fL (80-100); MPV 7.8 fL (7.6-11.3); Nucleated Red Blood Cells % 0.1 % (0-0); Platelets 279 thou/uL (152-406); RBC Red Blood Cell Count 3.11 M/uL (3.86-4.86)
[2024-08-22 06:31] LABS: PT Prothrombin Time 20.6 SECONDS (10-13.0); Protime INR 1.86
[2024-08-22 06:56] LABS: ALT/SGPT 70 U/L (13-56); AST/SGOT 67 U/L (15-37); Albumin/Globulin Ratio 0.9 (1.1-1.8); Alkaline Phosphatase 94 U/L (45-117); Anion Gap 8.8 mEq/L (5.0-15.0); BUN Blood Urea Nitrogen 10 mg/dL (7-18); Bicarbonate 29 mEq/L (21-32); Bilirubin Total 0.3 mg/dL (0.2-1.0); Globulin 3.5 g/dL (2.3-3.5); Glomerular Filtration Rate 50 ml/min (=/>90); Glucose Level 83 mg/dL (74-106); HDL Cholesterol 63 mg/dL (40-60); LDL Cholesterol, Calculated 42 mg/dL (<130); LDL Cholesterol,Calc NonReport 42; Potassium 3.8 mEq/L (3.5-5.1); Protein, Total 6.5 g/dL (6.4-8.2); Sodium Level 140 mEq/L (136-145)
[2024-08-22 07:00] LABS: Bilirubin Direct < 0.2 mg/dL (0-0.2); Bilirubin Indirect, Calculated 0.1 mg/dL (0.2-0.8)
--- NOTE | 2024-08-22 09:47 | P.PN ---
Date of Service: 08/22/24 Subjective: ongoing chest discomfort also reports ongoing abdominal discomfort - for a long time, which she is seeing GI for had BM yesterday morning, doesn't feel bloated still with slight nausea, no vomiting Physical Exam: GEN: Alert, oriented, NAD CV: Irregularly irregular rhythm/rate, mild TTP along sternum Pulm: Nonlabored respirations on room air, clear bilaterally ABD: soft, mild TTP diffusely, nondistended Neuro: Normal speech, normal affect Problem List: Chest pain Chronic abdominal pain GERD Chronic CHF Hypertension Hyperlipidemia Hx A-fib on anticoagulation Hx thoracic aortic aneurysm Hx mechanical aortic valve replacement Chest pain on admission, presents with chest pain radiating to left shoulder, +SOB. CT chest/abd/pelvis only noted cholelithiasis, moderate stool burden. No other acute findings. CXR noted COPD without acute process. CT head negative for any acute findings. Trend troponins - negative so far. Monitor on telemetry Resume home metoprolol, statin, amio Cardio consult pain control, IVF TSH 4.96 unclear etiology Chronic abdominal pain GERD reports some chronic intermittent abdominal pain. +intermittent diarrhea, nausea Follows up with GI as outpatient. CT chest/abd/pelvis noted cholelithiasis, moderate stool burden ALT/AST minimally elevated Chronic CHF Hypertension Hyperlipidemia Hx A-fib on anticoagulation Hx thoracic aortic aneurysm Hx mechanical aortic valve replacement confirm home meds, restart as appropriate resume home metoprolol, statin, protonix VTE: home coumadin Code: Full Dispo: Home, ~1 day Pending cardiac recs Time Spent Managing Pts Care (In Minutes): 55
[2024-08-22] MEDS: ATORVASTATIN 40 MG TAB PO SCH (20:46)
[2024-08-23 03:17] VITALS: O2SAT 98
[2024-08-23 06:16] LABS: Absolute Basophils 0.1 K/uL (0-0.5); Absolute Eosinophils 0.3 K/uL (0-0.5); Absolute Lymphocytes (CBC) 0.6 K/uL (0.7-4.9); Absolute Monocytes 0.7 K/uL (0.1-1.3); Absolute Neutrophil 6.8 K/uL (1.8-8.0); Basophils % 0.8 % (0-1.3); Eosinophils % 3.3 % (0-4.4); Hematocrit 25.2 % (36.0-45.0); Hemoglobin 8.1 g/dL (12.0-15.0); Lymphocytes % 7.3 % (15.3-44.8); MCH 26.9 pg (27.0-35.0); MCHC 31.9 g/dL (32.0-36.0); MCV 84.2 fL (80-100); MPV 7.8 fL (7.6-11.3); Monocytes % 8.1 % (3.3-12.3); Neutrophils % 80.5 % (41.7-73.7); Platelets 236 thou/uL (152-406); Red Cell Distribution Width 18.6 % (12.1-15.2)
[2024-08-23 06:21] LABS: Protime INR 2.19
[2024-08-23 06:26] LABS: Anion Gap 9.1 mEq/L (5.0-15.0); Potassium 4.1 mEq/L (3.5-5.1)
[2024-08-23] MEDS: GABAPENTIN 300 MG CAP PO SCH (08:42)
[2024-08-23] MEDS: EZETIMIBE 10 MG TAB PO SCH (08:42)
[2024-08-23] MEDS: PANTOPRAZOLE 40MG TABLET PO SCH (08:42)
[2024-08-23] MEDS: AMIODARONE HCL 200 MG TAB PO SCH (08:42)
--- NOTE | 2024-08-23 10:40 | P.PN ---
Date of Service: 08/23/24 Subjective: feeling bloated, constipated no BM yet, +flatus afebrile Physical Exam: GEN: Alert, oriented, NAD CV: Irregularly irregular rhythm/rate, mild TTP along sternum Pulm: Nonlabored respirations on room air, clear bilaterally ABD: soft, mild TTP diffusely, nondistended Neuro: Normal speech, normal affect Problem List: Chest pain Chronic abdominal pain GERD Chronic CHF Hypertension Hyperlipidemia Hx A-fib on anticoagulation Hx thoracic aortic aneurysm Hx mechanical aortic valve replacement Chest pain on admission, presents with chest pain radiating to left shoulder, +SOB. CT chest/abd/pelvis only noted cholelithiasis, moderate stool burden. No other acute findings. CXR noted COPD without acute process. CT head negative for any acute findings. Troponins negative x3. Monitor on telemetry Resume home metoprolol, statin, amio Cardio consulted TSH 4.96 unclear etiology Chronic abdominal pain GERD reports some chronic intermittent abdominal pain. reported intermittent diarrhea at home, nausea Follows up with GI as outpatient. CT chest/abd/pelvis noted cholelithiasis, moderate stool burden ALT/AST minimally elevated 08/23 - Feeling more bloated, constipated today No BM since arrival. +Flatus Miralax x1 ordered DC morphine - could be contributing to constipation Continue Tylenol #3 as needed for pain Recommend outpatient GI evaluation, consider outpatient EGD/colonscopy in near future to further evaluate Chronic CHF Hypertension Hyperlipidemia Hx A-fib on anticoagulation Hx thoracic aortic aneurysm Hx mechanical aortic valve replacement confirm home meds, restart as appropriate resume home metoprolol, statin, protonix VTE: home coumadin Code: Full Dispo: Home, later today vs tomorrow Pending cardiac recs Time Spent Managing Pts Care (In Minutes): 55
[2024-08-23] MEDS: CODEINE 30MG/APAP 300MG TAB PO PRN (10:45)
[2024-08-23] MEDS: POLYETHYL GLY 3350 17 GM/DOSE PO ONE (10:46)
[2024-08-23 12:43] VITALS: BP 113/74; TEMP 97.2
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
--- NOTE | 2024-08-24 12:06 | EKG ---
Test Date: 2024-08-21 Test Time: 12:27:25 Tip Finisher: EVA MEASUREMENT RESULTS: Intervals: Rate: 78 HI: QRSD: 138 QT: 454 QTc: 517 [place]: P: HI: QRS: 112 T: 84 INTERPRETIVE STATEMENTS: Atrial fibrillation Right axis deviation Nonspecific intraventricular block Abnormal ECG Compared to ECG 07/06/2024 20:28:41 Right-axis deviation now present Sinus rhythm no longer present First degree AV block no longer present Electronically Signed On 08-24-24 12:05:05 CDT by Osiel Corbin
== END 2024-08-23 15:33 | disposition home or self-care (01) | DRG 313 ==
LOC: ER 12:12 → ERHOLD 14:52 → 4TH 18:02
PROVIDERS: ADMIT Hospitalist; ATTEND Hospitalist
DX: R07.9 Chest pain, unspecified (principal); I13.0 Hypertensive heart and chronic kidney disease with heart failure and stage 1 through stage 4 chronic kidney disease, or unspecified chronic kidney disease; I50.9 Heart failure, unspecified; N18.31 Chronic kidney disease, stage 3a; I48.91 Unspecified atrial fibrillation; E78.00 Pure hypercholesterolemia, unspecified; K21.9 Gastro-esophageal reflux disease without esophagitis; J44.9 Chronic obstructive pulmonary disease, unspecified; K80.20 Calculus of gallbladder without cholecystitis without obstruction; Z95.2 Presence of prosthetic heart valve; Z79.01 Long term (current) use of anticoagulants; Z96.641 Presence of right artificial hip joint; Z79.899 Other long term (current) drug therapy
CPT/HCPCS: 36415; 70450; 71045; 71260; 74177; 80048; 80061; 80076; 83880; 84439; 84443; 84484; 85025; 85610; 93005; 96374; 96375; 99285; J2270; J2405; J7030

== ENCOUNTER 2024-11-23 23:58 | Emergency (ER) | payer OTHER ==
--- NOTE | 2024-11-24 00:20 | EDPHYS ---
Physician Documentation [facility] Name: Michelle Saavedra Age: 69 yrs Sex: Female : 1955 Arrival Date: 11/23/2024 Time: 23:58 Bed 25 Private MD: ED Physician Juan Yoder HPI: 11/24 00:15 This 69 yrs old Female presents to ER via Unassigned with complaints of Skin kb Sore(s), sore on butt. 00:15 Pt is a 69 year old female who presents for sore on right buttock that started "at kb least 1.5 weeks ago." Pt reports pain to area. Came in today because it isn't getting any better with antibiotic cream. . Historical: - Allergies: 00:22 No Known Allergies; jj7 - PMHx: 00:22 Atrial fibrillation; COPD; Hypercholesterolemia; Hypertensive disorder; mechanical jj7 valve; - PSHx: 00:22 mechanical valve; Right hip replacement; jj7 - Immunization history:: Adult Immunizations up to date. - Infectious Disease History:: Denies. - Social history:: Smoking status: Patient denies any tobacco usage or history of. Patient/guardian denies using alcohol, street drugs, IV drugs. ROS: 00:16 Constitutional: As per HPI kb Exam: 00:16 Constitutional: This is a well developed, well nourished patient who is awake, alert, kb and in no acute distress. Head/Face: Normocephalic, atraumatic. ENT: Moist Mucous membranes Respiratory: Respirations even and unlabored. No increased work of breathing. Talking in full sentences MS/ Extremity: Pulses equal, no cyanosis. Neurovascular intact. Full, normal range of motion. Neuro: Awake and alert, GCS 15, oriented to person, place, time, and situation. 00:16 Skin: small open wound without drainage, slight surrounding erythema. No swelling, warmth, cellulitis. Vital Signs: 00:10 BP 112 / 68; Pulse 67; Resp 16; Temp 97.7; Pulse Ox 100% ; jj7 MDM: 00:05 Medical Screening Exam initiated kb 00:17 Differential diagnosis: pressure ulcer, abscess, cellulitis. Data reviewed: vital kb signs, nurses notes. Counseling: I had a detailed discussion with the patient and/or guardian regarding the historical points, exam findings, and any diagnostic results supporting the discharge/admit diagnosis, the need for outpatient follow up, a family practitioner, to return to the emergency department if symptoms worsen or persist or if there are any questions or concerns that arise at home. Administered Medications: 00:39 Drug: Cephalexin PO 500 mg PO once Route: PO; jj7 00:41 Follow up: Response: No adverse reaction jj7 Disposition: 05:37 Co-signature as Attending Physician, Juan Yoder MD I agree with the assessment sp4 and plan of care. I reviewed the patient's care provided by the Advanced Practice Provider and agree with the diagnosis and treatment plan. Disposition Summary: 11/24/24 00:19 Discharge Ordered Notes: Location: Home kb Condition: Stable kb Diagnosis - Local infection of the skin and subcutaneous tissue, unspecified - right buttock kb Followup: kb - With: Emergency Department - When: As needed - Reason: Worsening of condition Followup: kb - With: Private Physician - When: 2 - 3 days - Reason: Recheck today's complaints, Continuance of care, Re-evaluation by your physician Discharge Instructions: - Discharge Summary Sheet kb - Pressure Injury kb - Wound Infection, [id number] kb Forms: - Medication Reconciliation Form kb - Antibiotic Education kb - Prescription Opioid Use kb - Patient Portal Instructions kb - Leadership Thank You Letter kb Prescriptions: - mupirocin 2 % Topical ointment - apply 1 application TOPICAL route 2 times per day; 1 Unspecified; Refills: 0, kb Product Selection Permitted - Cephalexin 500 mg Oral Capsule - take 1 capsule ORAL route every 8 hours for 10 days; 30 capsule; Refills: 0, kb Product Selection Permitted Signatures: Zahida Espinal, Fausto Hernández RN RN jj7 Juan Yoder MD MD sp4
[2024-11-24] MEDS ORDERED: CEPHALEXIN 250 MG CAP ONE (00:35)
--- NOTE | 2024-11-24 00:41 | ER ---
Nurse's Notes [facility] Name: Michelle Saavedra Age: 69 yrs Sex: Female : 1955 Arrival Date: 11/23/2024 Time: 23:58 Bed 25 Private MD: Diagnosis: Local infection of the skin and subcutaneous tissue, unspecified-right buttock Presentation: 11/24 00:10 Chief complaint: Patient states: SORE ON HER BUTTOCKS X 1 1/2 WEEKS. COUGH FOR A MONTH. jj7 Coronavirus screen: cough unrelated to allergies. Ebola Screen: No symptoms or risks identified at this time. Initial Sepsis Screen: Does the patient meet any 2 criteria? No. Patient's initial sepsis screen is negative. Does the patient have a suspected source of infection? No. Patient's initial sepsis screen is negative. Risk Assessment: Do you want to hurt yourself or someone else? Patient reports no desire to harm self or others. Onset of symptoms was November 16, 2024. 00:10 Method Of Arrival: Wheelchair jj7 00:10 Acuity: JAKUB 5 jj7 Triage Assessment: 00:22 General: Appears in no apparent distress. uncomfortable, slender, unkempt, Behavior is jj7 calm, cooperative, appropriate for age. Pain: Complains of pain in right gluteus basil. Derm: Decubitus located on right approximately 1.5 cm to 2.5 cm is stage I has erythematous edges is draining none noted. Historical: - Allergies: 00:22 No Known Allergies; jj7 - PMHx: 00:22 Atrial fibrillation; COPD; Hypercholesterolemia; Hypertensive disorder; mechanical jj7 valve; - PSHx: 00:22 mechanical valve; Right hip replacement; jj7 - Immunization history:: Adult Immunizations up to date. - Infectious Disease History:: Denies. - Social history:: Smoking status: Patient denies any tobacco usage or history of. Patient/guardian denies using alcohol, street drugs, IV drugs. Screenin:25 [facility] ED Fall Risk Assessment (Adult) History of falling in the last 3 months, jj7 including since admission No falls in past 3 months (0 pts) Confusion or Disorientation No (0 pts) Intoxicated or Sedated No (0 pts) Impaired Gait No (0 pts) Mobility Assist Device Used No (0 pt) Altered Elimination No (0 pt) Score/Fall Risk Level 0 - 2 = Low Risk. Abuse screen: Denies threats or abuse. Nutritional screening: No deficits noted. Tuberculosis screening: No symptoms or risk factors identified. Assessment: 00:25 Reassessment: SEE TRIAGE ASSESSMENT. jj7 Vital Signs: 00:10 BP 112 / 68; Pulse 67; Resp 16; Temp 97.7; Pulse Ox 100% ; jj7 ED Course: 00:01 Patient arrived in ED. gm2 00:05 Zahida Espinal FNP-C is PHCP. luiza 00:05 Juan Yoder MD is Attending Physician. kb 00:22 Triage completed. jj7 00:22 Arm band placed on right wrist. jj7 00:25 Patient has correct armband on for positive identification. Placed in gown. Bed in low jj7 position. Call light in reach. Side rails up X2. Adult w/ patient. Provided Education on: USE OF CALL GENAO. Warm blanket given. 00:25 No provider procedures requiring assistance completed. Patient did not have IV access jj7 during this emergency room visit. Administered Medications: 00:39 Drug: Cephalexin PO 500 mg PO once Route: PO; jj7 00:41 Follow up: Response: No adverse reaction jj7 Medication: 00:25 VIS not applicable for this client. jj7 Outcome: 00:19 Discharge ordered by . kb 00:39 Discharged to home via wheelchair, with family, jj7 00:39 Condition: good 00:39 Discharge instructions given to patient, Instructed on discharge instructions, follow up and referral plans. medication usage, Demonstrated understanding of instructions, medications, wound care, Prescriptions given X 2, 00:39 Discharge instructions given to Instructed on wound care, 00:41 Patient left the ED. jj7 Signatures: Zahida Espinal FNP-C FNP-Ckb Johnson, Juwairiyah, RN RN jj7 Anna Baig gm2
[2024-11-24 01:01] VITALS: BP 112/68; TEMP 97.7; O2SAT 100
== END 2024-11-24 00:41 | disposition home or self-care (01) ==
LOC: ER 23:58
DX: L08.9 Local infection of the skin and subcutaneous tissue, unspecified (principal)
CPT/HCPCS: 99283

== ENCOUNTER 2024-11-27 17:38 | Emergency (ER) | payer OTHER ==
[2024-11-27] MEDS ORDERED: FAMOTIDINE 20 MG/2 ML VIAL IV ONE (18:08)
[2024-11-27] MEDS ORDERED: ASPIRIN 81 MG CHEWABLE TABLET ONE (18:08)
[2024-11-27] MEDS ORDERED: NA CHLORIDE 0.9% 500 ML ONE (18:08)
[2024-11-27 18:18] LABS: Absolute Lymphocytes (CBC) 0.7 K/uL (0.7-4.9); Hematocrit 26.1 % (36.0-45.0); Hemoglobin 8.1 g/dL (12.0-15.0); MCH 28.9 pg (27.0-35.0); MCHC 31.2 g/dL (32.0-36.0); MCV 92.7 fL (80-100); MPV 8.6 fL (7.6-11.3); Nucleated RBC Absolute Count 0.0 (0-0); Nucleated Red Blood Cells % 0.1 % (0-0); RBC Red Blood Cell Count 2.81 M/uL (3.86-4.86); White Blood Count 5.50 thou/uL (4.3-10.9)
[2024-11-27 18:25] LABS: PT Prothrombin Time 27.0 SECONDS (10-13.0); Protime INR 2.45
[2024-11-27 18:38] LABS: ALT/SGPT 42 U/L (13-56); AST/SGOT 51 U/L (15-37); Albumin 2.9 g/dL (3.4-5.0); Albumin/Globulin Ratio 0.7 (1.1-1.8); Alkaline Phosphatase 103 U/L (45-117); Anion Gap 11.1 mEq/L (5.0-15.0); BUN Blood Urea Nitrogen 11 mg/dL (7-18); Globulin 3.9 g/dL (2.3-3.5); Glucose Level 109 mg/dL (74-106); Lipase 34 U/L (13-75); Magnesium 1.8 mg/dL (1.6-2.4); NT PRO-BNP 3159 pg/mL (<125); Potassium 4.1 mEq/L (3.5-5.1); Troponin High Sensitivity 14.0 pg/mL (<58.9)
[2024-11-27 18:40] LABS: Bilirubin Indirect, Calculated 0.1 mg/dL (0.2-0.8)
--- NOTE | 2024-11-27 18:45 | RAD REPORT ---
EXAMINATION: CT HEAD WITHOUT CONTRAST CT CERVICAL SPINE WITHOUT CONTRAST CLINICAL INDICATION: Head and neck injury status post fall. Head and neck pain TECHNIQUE: Axial CT images from the skull base to the vertex without intravenous contrast. Axial CT i mages through the cervical spine were obtained without intravenous contrast. Sagittal and coronal reformatted images were created from the data set. Coronal and sagittal reformatted images were creat ed from the data set. One or more of the following dose reduction techniques were used: Automated exposure control, adjustment of the mA and/or kV according to patient size, and/or iterative reconstr uction. Unless otherwise specified, incidental findings do not require dedicated imaging follow-up. [id number]. Comparison: October 2020 FINDINGS: An intracranial bleed is not seen. Ventricles are normal in caliber. No significant hypodensity within the brain No extra-axial fluid collection. No fluid within the sinuses/mastoids No fracture or dislocation is seen involving the cervical spine. IMPRESSION: No acute intracranial abnormality noted A cervical fracture is not seen. If the patient continues to have symptoms to suggest acute STEM TEACHER/spinal pathology then MRI would be rec ommended
[2024-11-27 18:53] LABS: Anisocytosis 1+; Blood Morphology Comment NOTED (NOT SEEN); Macrocytosis SLIGHT; Microcytosis SLIGHT; White Blood Cell Scan OK (OK)
--- NOTE | 2024-11-27 18:53 | RAD REPORT ---
EXAM: CT CHEST, ABDOMEN AND PELVIS WITHOUT CONTRAST CLINICAL INDICATION: Chest and abdominal pain TECHNIQUE: CT chest, abdomen and pelvis was performed, without IV contrast, as per department protoco l. Axial, sagittal and coronal reconstructions were obtained. One or more of the following dose reduction techniques were used: Automated exposure control, adjustment of the mA and/or kV according to the patient size, and/or iterative reconstruction. Unless otherwise specified, incidental findings do not require dedicated imaging follow-up. The lack of IV and oral contrast limits evaluation of the mediastinum, jalen, vessels, organs and georgie l. COMPARISON: None FINDINGS: A pulmonary contusion not present. No mediastinal hematoma. Aortic stent present. 4 cm aneurysm descending thoracic aorta unchanged. Cardiomegaly. Small bilateral pleural effusions. No pleural effusion. No pericardial effusion. Liver, spleen, pancreas, adrenals kidneys and bladder do not demonstrate a traumatic injury. Stones within the neck of the gallbladder. Mild gastric distention Right hip arthroplasty Moderate old compression fracture L1 vertebral body. Small amount of pelvic ascites. IMPRESSION: Cholelithiasis 4 cm aneurysm descending thoracic aorta unchanged No acute traumatic injury involving the chest/abdomen/pelvis seen
[2024-11-27 18:54] LABS: Ovalocytes SLIGHT; Teardrop Cell FEW
--- NOTE | 2024-11-27 19:08 | ER ---
Nurse's Notes [facility] Name: Michelle Saavedra Age: 69 yrs Sex: Female : 1955 Arrival Date: 11/27/2024 Time: 17:38 Bed 4 Private MD: Diagnosis: Fall on same level, unspecified;detention (current) use of anticoagulants-AVR;Contusion of right shoulder;Anemia, unspecified;Pleural effusion in other conditions classified elsewhere-BILATERAL SMALL;Cardiomegaly Presentation: 11/27 17:46 Chief complaint: Patient states: SOB with exertion since last night. Fell onto R kc6 shoulder this morning, pain since. Coronavirus screen: Client denies travel out of the [place] in the last 14 days. At this time, the client does not indicate any symptoms associated with coronavirus-19. Ebola Screen: Patient denies travel to an Ebola-affected area in the 21 days before illness onset. Initial Sepsis Screen: Does the patient meet any 2 criteria? No. Patient's initial sepsis screen is negative. Does the patient have a suspected source of infection? No. Patient's initial sepsis screen is negative. Risk Assessment: Do you want to hurt yourself or someone else? Patient reports no desire to harm self or others. Onset of symptoms was November 26, 2024. 17:46 Method Of Arrival: Wheelchair [facility] 17:46 Acuity: JAKUB 3 kc6 Triage Assessment: 17:47 General: Appears uncomfortable, Behavior is calm, cooperative, appropriate for age, kc6 Reports fatigue for. Pain: Complains of pain in R shoulder Quality of pain is described as aching. Respiratory: Reports shortness of breath on exertion. Musculoskeletal: Reports pain in R shoulder. Injury Description: Bruise sustained to R shoulder. Historical: - Allergies: 17:42 No Known Allergies; nh2 - PMHx: 17:42 Atrial fibrillation; COPD; Hypercholesterolemia; Hypertensive disorder; mechanical nh2 valve; - PSHx: 17:42 mechanical valve; Right hip replacement; nh2 - Immunization history:: Adult Immunizations up to date. - Infectious Disease History:: Denies. - Social history:: Smoking status: Patient denies any tobacco usage or history of. Screenin:[facility] ED Fall Risk Assessment (Adult) History of falling in the last 3 months, ar8 including since admission Yes- single mechanical fall (1 pt) Confusion or Disorientation No (0 pts) Intoxicated or Sedated No (0 pts) Impaired Gait No (0 pts) Mobility Assist Device Used No (0 pt) Altered Elimination No (0 pt) Score/Fall Risk Level 0 - 2 = Low Risk Oriented to surroundings, Maintained a safe environment. Abuse screen: Denies threats or abuse. Nutritional screening: No deficits noted. Tuberculosis screening: No symptoms or risk factors identified. Assessment: 17:49 General: Appears uncomfortable, Behavior is cooperative. Pain: Complains of pain in ar8 right scapular area Pain currently is 8 out of 10 on a pain scale. Neuro: No deficits noted. Level of Consciousness is awake, alert, obeys commands, Oriented to person, place, time, situation. Cardiovascular: No deficits noted. Respiratory: Reports shortness of breath on exertion Airway is patent Respiratory effort is even, unlabored, Respiratory pattern is regular, symmetrical, Breath sounds are coarse bilaterally. GI: No deficits noted. Musculoskeletal: Tenderness present in right scapular area. 19:43 Reassessment: pt given fentanyl for pain. pt informed about discharge. will monitor pt mf3 before discharge. Vital Signs: 17:46 Pulse 58; Resp 17; Temp 98.1(O); Pulse Ox 99% on R/A; Weight 47.63 kg; Height 5 ft. 3 kc6 in. ; Pain 8/10; 17:48 BP 185 / 68; ar8 19:06 BP 157 / 101; Pulse 59; ar8 20:09 BP 167 / 72; mf3 20:09 Pulse 65; Resp 17; Temp 98.2; Pulse Ox 98% ; mf3 17:46 Body Mass Index 18.60 (47.63 kg, 160.02 cm) kc6 17:46 Pain Scale: Adult [facility] ED Course: 17:40 Patient arrived in ED. im 17:42 Gab Del Real MD is Attending Physician. milton 17:42 Arm band placed on Patient placed in an exam room, on a stretcher. nh2 17:43 Franc Avalos, PHILLIP is Primary Nurse. ar8 17:47 Triage completed. kc6 17:51 Bed in low position. Call light in reach. Side rails up X2. Provided Education on: plan ar8 of care. Client placed on continuous cardiac and pulse oximetry monitoring. NIBP monitoring applied. 17:51 No provider procedures requiring assistance completed. ar8 18:05 EKG done, by ED staff, reviewed by Gab Del Real MD. ar8 18:10 Inserted saline lock: 22 gauge in left antecubital area, using aseptic technique. Blood ar8 collected. Flushed with 10 mL NS. 18:14 Basic Metabolic Panel Sent. ar8 18:14 CBC with Diff Sent. ar8 18:14 LFT's Sent. ar8 18:14 Magnesium Sent. ar8 18:14 NT PRO-BNP Sent. ar8 18:14 PT-INR Sent. ar8 18:15 Troponin HS Sent. ar8 18:21 Chest Abd Pelvis Wo Con In Process Unspecified. EDMS 18:21 Head C Spine Mpr Wo Con In Process Unspecified. EDMS 19:03 XRAY Chest (1 view) In Process Unspecified. EDMS 19:03 Shoulder Right (2 View) XRAY In Process Unspecified. EDMS 20:08 Sling applied to right arm. mf3 20:09 IV discontinued, No redness/swelling at site. mf3 Administered Medications: 18:25 Not Given (Duplicate Order): ns 0.9% 500 ml 500 ml IV at 1 bolus once; to be given as a milton bolus over 30 minutes 18:32 Drug: Famotidine IVP 20 mg IVP once; dilute with 10 mL 0.9% NaCl; give over 2 minutes ar8 Route: IVP; Site: left antecubital; 19:00 Follow up: Response: No adverse reaction vc1 18:34 Drug: Aspirin PO Chewable Tablet 81 mg PO once Route: PO; ar8 19:00 Follow up: Response: No adverse reaction vc1 19:42 Drug: Ondansetron IVP 4 mg IVP once; over 2 minutes Route: IVP; Site: left antecubital; mf3 20:12 Follow up: Response: No adverse reaction mf3 19:43 Drug: fentaNYL (PF) IVP 50 mcg IVP once Route: IVP; Site: left antecubital; mf3 20:12 Follow up: Response: No adverse reaction mf3 Medication: 17:51 VIS not applicable for this client. ar8 Outcome: 19:07 Discharge ordered by . milton 20:09 Discharged to home via wheelchair, mf3 20:09 Condition: stable 20:09 Discharge instructions given to patient, Instructed on discharge instructions, follow up and referral plans. medication usage, Demonstrated understanding of instructions, follow-up care, medications, Prescriptions given X 1, 20:12 Patient left the ED. mf3 Signatures: Dispatcher [employer] Gab Nation MD MD cha Calcote, Vanessa RN RN vc1 Helen Kauffman, RN RN kc6 Kim Cartwright Jr, Noel RN RN [facility] Franc Avalos RN RN ar8 Diana Messina RN RN 3
--- NOTE | 2024-11-27 19:08 | EDPHYS ---
Physician Documentation [facility] Name: Michelle Saavedra Age: 69 yrs Sex: Female : 1955 Arrival Date: 11/27/2024 Time: 17:38 Bed 4 Private MD: ED Physician Gab Del Real HPI: 11/27 18:26 This 69 yrs old Female presents to ER via Wheelchair with complaints of High milton Blood Pressure, Fall Injury. 18:26 The patient has elevated blood pressure and discovered this at home. Onset: The milton symptoms/episode began/occurred just prior to arrival, this morning. Modifying factors: The symptoms are aggravated by activity, The symptoms are alleviated by remaining still. Associated signs and symptoms: The patient has no apparent associated signs or symptoms. Historical: - Allergies: 17:42 No Known Allergies; nh2 - PMHx: 17:42 Atrial fibrillation; COPD; Hypercholesterolemia; Hypertensive disorder; mechanical nh2 valve; - PSHx: 17:42 mechanical valve; Right hip replacement; nh2 - Immunization history:: Adult Immunizations up to date. - Infectious Disease History:: Denies. - Social history:: Smoking status: Patient denies any tobacco usage or history of. ROS: 18:26 Constitutional: Negative for fever, chills, and weight loss, Eyes: Negative for injury, milton pain, redness, and discharge, ENT: Negative for injury, pain, and discharge, Neck: Negative for injury, pain, and swelling, Cardiovascular: Negative for chest pain, palpitations, and edema, Abdomen/GI: Negative for abdominal pain, nausea, vomiting, diarrhea, and constipation, Back: Negative for injury and pain, : Negative for injury, bleeding, discharge, and swelling, Skin: Negative for injury, rash, and discoloration, Neuro: Negative for headache, weakness, numbness, tingling, and seizure, Psych: Negative for depression, anxiety, suicide ideation, homicidal ideation, and hallucinations, Allergy/Immunology: Negative for hives, rash, and allergies, Endocrine: Negative for neck swelling, polydipsia, polyuria, polyphagia, and marked weight changes, Hematologic/Lymphatic: Negative for swollen nodes, abnormal bleeding, and unusual bruising, 18:26 Respiratory: Positive for shortness of breath, at rest. 18:26 MS/extremity: Positive for decreased range of motion, pain, tenderness, of the anterior aspect of right shoulder and posterior aspect of right shoulder, Exam: 18:26 Constitutional: This is a well developed, well nourished patient who is awake, alert, milton and in no acute distress. Head/Face: Normocephalic, atraumatic. Eyes: Pupils equal round and reactive to light, extra-ocular motions intact. Lids and lashes normal. Conjunctiva and sclera are non-icteric and not injected. Cornea within normal limits. Periorbital areas with no swelling, redness, or edema. ENT: Nares patent. No nasal discharge, no septal abnormalities noted. Tympanic membranes are normal and external auditory canals are clear. Oropharynx with no redness, swelling, or masses, exudates, or evidence of obstruction, uvula midline. Mucous membranes moist. Neck: Trachea midline, no thyromegaly or masses palpated, and no cervical lymphadenopathy. Supple, full range of motion without nuchal rigidity, or vertebral point tenderness. No Meningismus. Chest/axilla: Normal chest wall appearance and motion. Nontender with no deformity. No lesions are appreciated. Cardiovascular: Regular rate and rhythm with a normal S1 and S2. No gallops, murmurs, or rubs. Normal PMI, no JVD. No pulse deficits. Respiratory: Lungs have equal breath sounds bilaterally, clear to auscultation and percussion. No rales, rhonchi or wheezes noted. No increased work of breathing, no retractions or nasal flaring. Abdomen/GI: Soft, non-tender, with normal bowel sounds. No distension or tympany. No guarding or rebound. No evidence of tenderness throughout. Back: No spinal tenderness. No costovertebral tenderness. Full range of motion. Skin: Warm, dry with normal turgor. Normal color with no rashes, no lesions, and no evidence of cellulitis. Neuro: Awake and alert, GCS 15, oriented to person, place, time, and situation. Cranial nerves II-XII grossly intact. Motor strength 5/5 in all extremities. Sensory grossly intact. Cerebellar exam normal. Normal gait. Psych: Awake, alert, with orientation to person, place and time. Behavior, mood, and affect are within normal limits. 18:26 ECG was reviewed by the Attending Physician. 18:26 Musculoskeletal/extremity: Extremities: grossly normal except: noted in the anterior aspect of right shoulder and posterior aspect of right shoulder: decreased ROM, pain, ROM: no acute changes, Perfusion: the patient is normally perfused throughout, Sensation intact. DVT Exam: No signs of deep vein thrombosis. no pain, no swelling, no tenderness, negative Homans' sign noted on exam, no appreciated bluish discoloration, no erythema, no increased warmth, Vital Signs: 17:46 Pulse 58; Resp 17; Temp 98.1(O); Pulse Ox 99% on R/A; Weight 47.63 kg; Height 5 ft. 3 kc6 in. ; Pain 8/10; 17:48 BP 185 / 68; ar8 19:06 BP 157 / 101; Pulse 59; ar8 20:09 BP 167 / 72; mf3 20:09 Pulse 65; Resp 17; Temp 98.2; Pulse Ox 98% ; mf3 17:46 Body Mass Index 18.60 (47.63 kg, 160.02 cm) kc6 17:46 Pain Scale: Adult kc6 MDM: 17:42 Medical Screening Exam initiated milton 18:28 Antibiotic administration: Not indicated. Differential diagnosis: Anterior dislocation milton with fracture, Anterior dislocation without fracture, Posterior dislocation with fracture, Posterior dislocation without fracture, humeral head fracture, glenoid fracture, DJD, tendonitis, Anxiety Reaction asthma, Bronchitis CHF exacerbation, Chronic Obstructive Pulmonary Disease hypertensive crisis, Malignant HTN, intracerebral hemorrhage, Myocardial Infarction pneumonia, Pneumothorax Psychogenic pulmonary edema, Pulmonary Embolism reactive airway disease, Sepsis Unstable Angina. Differential Diagnosis altered mental status, sepsis, flu. Immunization status: Pneumococcal vaccine: Influenza vaccine: Data reviewed: vital signs, nurses notes, lab test result(s), EKG, radiologic studies, CT scan, plain films. Consideration of Admission/Observation Escalation of care including admission/observation considered. I considered the following discharge prescriptions or medication management in the emergency department Medications were administered in the Emergency Department. See MAR. Independent interpretation of the following test(s) in the Emergency Department EKG: See my EKG interpretation above. Historians other than the Patient: Spouse/Significant Other: spouse well informed. Care significantly affected by the following chronic conditions: Hypertension, Chronic Obstructive Pulmonary Disease, coumadin, avr. Counseling: I had a detailed discussion with the patient and/or guardian regarding the historical points, exam findings, and any diagnostic results supporting the discharge/admit diagnosis, lab results, radiology results. 11/27 17:49 Order name: Basic Metabolic Panel; Complete Time: 18:52 [facility] 11/27 17:49 Order name: CBC with Diff; Complete Time: 19:00 [facility] 11/27 17:49 Order name: LFT's; Complete Time: 18:52 [facility] 11/27 17:49 Order name: Magnesium; Complete Time: 18:52 [facility] 11/27 17:49 Order name: NT PRO-BNP; Complete Time: 18:52 [facility] 11/27 17:49 Order name: PT-INR; Complete Time: 18:52 [facility] 11/27 17:49 Order name: Troponin HS; Complete Time: 18:52 [facility] 11/27 17:49 Order name: Lipase; Complete Time: 18:52 [facility] 11/27 18:26 Order name: CBC Smear Scan; Complete Time: 19:00 EDMS 11/27 17:49 Order name: XRAY Chest (1 view) [facility] 11/27 17:49 Order name: Shoulder Right (2 View) XRAY [facility] 11/27 17:57 Order name: Chest Abd Pelvis Wo Con; Complete Time: 19:00 EDMI 11/27 17:57 Order name: Head C Spine Mpr Wo Con; Complete Time: 18:52 EDMI 11/27 17:49 Order name: Cardiac monitoring; Complete Time: 18:14 [facility] 11/27 17:49 Order name: EKG - Nurse/Tech; Complete Time: 18:14 [facility] 11/27 17:49 Order name: IV Saline Lock; Complete Time: 18:14 [facility] 11/27 17:49 Order name: Labs collected and sent; Complete Time: 18:14 [facility] 11/27 17:49 Order name: O2 Per Protocol; Complete Time: 18:14 [facility] 11/27 17:49 Order name: O2 Sat Monitoring; Complete Time: 18:14 [facility] 11/27 19:05 Order name: Sling; Complete Time: 20:08 [facility] 11/27 19:06 Order name: Ice pack; Complete Time: 20:08 [facility] EC:26 Rate is 56 beats/min. Rhythm is regular. QRS [place] is Normal. [place] interval is normal. QRS milton interval is normal. QT interval is normal. No Q waves. T waves are Normal. No ST changes noted. Clinical impression: Sinus bradycardia and No evidence of ischemia. Interpreted by me. Reviewed by me. Administered Medications: 18:25 Not Given (Duplicate Order): ns 0.9% 500 ml 500 ml IV at 1 bolus once; to be given as a milton bolus over 30 minutes 18:32 Drug: Famotidine IVP 20 mg IVP once; dilute with 10 mL 0.9% NaCl; give over 2 minutes ar8 Route: IVP; Site: left antecubital; 19:00 Follow up: Response: No adverse reaction vc1 18:34 Drug: Aspirin PO Chewable Tablet 81 mg PO once Route: PO; ar8 19:00 Follow up: Response: No adverse reaction vc1 19:42 Drug: Ondansetron IVP 4 mg IVP once; over 2 minutes Route: IVP; Site: left antecubital; mf3 20:12 Follow up: Response: No adverse reaction mf3 19:43 Drug: fentaNYL (PF) IVP 50 mcg IVP once Route: IVP; Site: left antecubital; mf3 20:12 Follow up: Response: No adverse reaction mf3 Disposition Summary: 11/27/24 19:07 Discharge Ordered Notes: Location: Home milton Problem: new milton Symptoms: have improved milton Condition: Stable milton Diagnosis - Fall on same level, unspecified milton - correction (current) use of anticoagulants - AVR milton - Contusion of right shoulder milton - Anemia, unspecified milton - Pleural effusion in other conditions classified elsewhere - BILATERAL SMALL milton - Cardiomegaly milton Followup: milton - With: Private Physician - When: 2 - 3 days - Reason: Recheck today's complaints, Continuance of care, Re-evaluation by your physician Discharge Instructions: - Discharge Summary Sheet milton - Anemia milton - Fall Prevention in the Home, Adult milton - Medicine Refill at the Emergency Department milton - Pleural Effusion milton - Shoulder Pain milton - Warfarin Coagulopathy milton - Fall Prevention in the Home, Adult, [id number] milton Forms: - Medication Reconciliation Form milton - Antibiotic Education milton - Prescription Opioid Use milton - Patient Portal Instructions milton - Leadership Thank You Letter milton Prescriptions: - Tylenol-Codeine #3 300mg-30mg Oral tablet - take 2 tablets ORAL route every 6 hours As needed; 20 tablet; Refills: 0, milton Product Selection Permitted Signatures: Dispatcher [employer] Gab Nation MD MD cha Campbell, Kaitlyn RN RN kc6 Dio Valencia Jr, RN RN [facility] Franc Avalos RN RN ar8 Diana Messina RN RN mf3 Alena Camilo RN vc1 Corrections: (The following items were deleted from the chart) 17:50 17:50 BASIC METABOLIC PANEL+C.LAB.BRZ ordered. EDMS EDMS 17:50 17:50 CBC+H.LAB.BRZ ordered. EDMS EDMS 17:50 17:50 HEPATIC FUNCTION+C.LAB.BRZ ordered. EDMS EDMS 17:50 17:50 MAGNESIUM+C.LAB.BRZ ordered. EDMS EDMS 17:50 17:50 PROBNP+C.LAB.BRZ ordered. EDMS EDMS 17:50 17:50 PROTIME (+INR)+COAG.LAB.BRZ ordered. EDMS EDMS 17:50 17:50 Troponin High Sensitivity+C.LAB.BRZ ordered. EDMS EDMS 17:50 17:50 LIPASE+C.LAB.BRZ ordered. EDMS EDMS 17:50 17:50 UA Rfx Chaitanya Cult if indicated+U.LAB.BRZ ordered. EDMS EDMS 17:50 17:50 Chest Single View+RAD.RAD.BRZ ordered. EDMS EDMS 17:50 17:50 Shoulder Right 2 View+RAD.RAD.BRZ ordered. EDMS EDMS 17:50 17:50 Head C Spine Cap Wo Con+CT.RAD.BRZ ordered. EDMS EDMS
--- NOTE | 2024-11-27 19:23 | RAD REPORT ---
Exam:Shoulder Right 2+ Views History: Right shoulder pain Findings: No fracture or dislocation seen Bones are osteoporotic
--- NOTE | 2024-11-27 19:25 | RAD REPORT ---
Procedure: Chest Single View HISTORY: Shortness of breath COMPARISON: October 2024 FINDINGS: Lungs appear clear of acute infiltrate. Heart markedly enlarged. Small bilateral pleural effusions. Post surgical changes involve the chest.
[2024-11-27] MEDS ORDERED: ONDANSETRON 4 MG/2 ML VIAL ONE (19:29)
[2024-11-27] MEDS ORDERED: FENTANYL CITR 100 MCG/2 ML ONE ×2 (19:29→19:35)
[2024-11-28 00:21] VITALS: BP 167/72; TEMP 98.2; O2SAT 98
== END 2024-11-27 20:12 | disposition home or self-care (01) ==
LOC: ER 17:38
DX: S40.011A Contusion of right shoulder, initial encounter (principal); D64.9 Anemia, unspecified; J90 Pleural effusion, not elsewhere classified; I51.7 Cardiomegaly; W18.30XA Fall on same level, unspecified, initial encounter; Z79.01 Long term (current) use of anticoagulants; I10 Essential (primary) hypertension; J44.9 Chronic obstructive pulmonary disease, unspecified; I48.91 Unspecified atrial fibrillation
CPT/HCPCS: 85025; 80048; 36415; 83735; 85610; 80076; 84484; 83690; 83880; 70450; 71250; 72125; 74176; 71045; 73030; 96375; 96374; 99285; J3010 ×2; J2405; J7040; 93005

== ENCOUNTER 2025-01-05 17:21 | Inpatient (IN) | payer OTHER ==
--- NOTE | 2025-01-05 18:40 | RAD REPORT ---
EXAM: Chest Single View HISTORY: 69 years Female CHEST PAIN COMPARISON: 01/03/2025 FINDINGS: LUNGS/PLEURA: Improved aeration of lungs bilaterally. Scarring at the left lung base. CARDIAC/MEDIASTINUM: Stable enlargement. UPPER ABDOMEN: No significant abnormality. BONES: Sternotomy. No acute abnormality. LINES/TUBES/OTHER: N/A IMPRESSION: Resolved pulmonary edema.
[2025-01-05 18:47] LABS: Absolute Lymphocytes (CBC) 0.8 K/uL (0.7-4.9); Hematocrit 31.4 % (36.0-45.0); Hemoglobin 10.3 g/dL (12.0-15.0); MCH 29.5 pg (27.0-35.0); MCHC 32.9 g/dL (32.0-36.0); MCV 89.7 fL (80-100); MPV 8.0 fL (7.6-11.3); Nucleated RBC Absolute Count 0.0 (0-0); Nucleated Red Blood Cells % 0.1 % (0-0); RBC Red Blood Cell Count 3.50 M/uL (3.86-4.86); White Blood Count 6.80 thou/uL (4.3-10.9)
[2025-01-05 19:11] LABS: ALT/SGPT 25.0 U/L (13-56); AST/SGOT 30.0 U/L (15-37); Albumin 3.1 g/dL (3.4-5.0); Albumin/Globulin Ratio 0.8 (1.1-1.8); Alkaline Phosphatase 103.0 U/L (45-117); Anion Gap 9.9 mEq/L (5.0-15.0); BUN Blood Urea Nitrogen 21.0 mg/dL (7-18); Bilirubin Indirect, Calculated 0.3 mg/dL (0.2-0.8); Globulin 4.1 g/dL (2.3-3.5); Glucose Level 108.0 mg/dL (74-106); Magnesium 2.0 mg/dL (1.6-2.4); Potassium 3.9 mEq/L (3.5-5.1); Troponin High Sensitivity 12.9 pg/mL (<58.9)
--- NOTE | 2025-01-05 19:17 | RAD REPORT ---
EXAMINATION: Head C Spine Mpr Wo Con CLINICAL INDICATION: Female, 69 years old. PAIN TECHNIQUE: Axial CT images from the skull base to the vertex without intravenous contrast. Axial CT i mages through the cervical spine were obtained without intravenous contrast. Sagittal and coronal reformatted images were created from the data set. Coronal and sagittal reformatted images were creat ed from the data set. One or more of the following dose reduction techniques were used: Automated exposure control, adjustment of the mA and/or kV according to patient size, and/or iterative reconstr uction. Unless otherwise specified, incidental findings do not require dedicated imaging follow-up. [id number]. COMPARISON: 11/27/24 FINDINGS: Head: INTRACRANIAL: No acute intracranial hemorrhage. No acute large vascular territory infarct. No hydroce phalus. No mass effect or midline shift. No significant white matter disease. VASCULATURE: No visualized abnormalities in the arteries or dural venous sinuses. SCALP/SKULL: No calvarial fracture identified. No acute soft tissue abnormality. SINUSES: The visualized paranasal sinuses are mostly clear. No significant mastoid fluid. Cervical spine: ALIGNMENT: The cervical spine has normal alignment without scoliosis or spondylolisthesis. BONE: Vertebral body heights are maintained. No aggressive osseous lesions. DEGENERATIVE: Multilevel cervical spondylosis with evidence of bilateral neural foraminal narrowing. No high grade central spinal stenosis. SOFT TISSUE: Coronary artery calcifications. IMPRESSION: No acute intracranial abnormality. No acute fracture or traumatic malalignment of the cervical spine.
--- NOTE | 2025-01-05 19:25 | ER ---
Nurse's Notes [facility] Name: Michelle Saavedra Age: 69 yrs Sex: Female : 1955 Arrival Date: 01/05/2025 Time: 17:21 Bed 19 Private MD: Diagnosis: Fall on same level, unspecified;Unspecified injury of head, initial encounter;Chest pain, unspecified;Weakness Presentation: 01/05 17:38 Chief complaint: Patient states: 1. Fell last night 3-4 times. States she was so weak ll1 she couldn't pick herself off the floor. 2. CP for 4 days, admitted here on Saturday for CP. 3. Chronic abdominal pain is worse. Coronavirus screen: Client denies travel out of the [place] in the last 14 days. At this time, the client does not indicate any symptoms associated with coronavirus-19. Ebola Screen: Patient denies travel to an Ebola-affected area in the 21 days before illness onset. Initial Sepsis Screen: Does the patient meet any 2 criteria? No. Patient's initial sepsis screen is negative. Does the patient have a suspected source of infection? No. Patient's initial sepsis screen is negative. Risk Assessment: Do you want to hurt yourself or someone else? Patient reports no desire to harm self or others. Onset of symptoms was January 02, 2025. 17:38 Method Of Arrival: Wheelchair ll1 17:38 Acuity: JAKUB 3 ll1 20:15 Care prior to arrival: None. Mechanism of Injury: Fall from roof. Trauma event details: kj2 Injury occurred: January 05, 2025. Triage Assessment: 17:38 General: Appears uncomfortable, Behavior is calm, cooperative, appropriate for age, ll1 Reports fatigue for. Pain: Complains of pain in head Pain currently is 8 out of 10 on a pain scale. Quality of pain is described as aching. Neuro: Reports headache. Cardiovascular: Reports chest pain. GI: Reports lower abdominal pain, upper abdominal pain, nausea. Derm: Reports bruising R eye. Historical: - Allergies: 17:37 No Known Allergies; ll1 - PMHx: 17:37 Atrial fibrillation; COPD; Hypercholesterolemia; Hypertensive disorder; mechanical ll1 valve; - PSHx: 17:37 hip surgery; ll1 - Immunization history:: Adult Immunizations up to date. - Infectious Disease History:: Denies. - Immunization history: Last tetanus immunization: unknown. - Social history:: Smoking status: Patient denies any tobacco usage or history of. Screenin:23 [facility] ED Fall Risk Assessment (Adult) History of falling in the last 3 months, kt5 including since admission Yes- fall prone (multiple falls) (3 pts) Confusion or Disorientation No (0 pts) Intoxicated or Sedated No (0 pts) Impaired Gait Yes (1 pt) Mobility Assist Device Used No (0 pt) Altered Elimination No (0 pt) Score/Fall Risk Level 3 or more points = High Risk Oriented to surroundings, Maintained a safe environment, Hourly rounding (assess needs \T\ fall precautionary measures) done. Abuse screen: Denies threats or abuse. Nutritional screening: No deficits noted. Tuberculosis screening: No symptoms or risk factors identified. Primary Survey: 20:15 NO uncontrolled hemorrhage observed. A: The client is awake and alert. The airway is kj2 patent. The client is alert. Airway: patent. Breathing/Chest: Spontaneous respiratory effort, equal unlabored respirations, breath sounds clear bilaterally, regular pattern, symmetrical chest rise and fall. Respiratory effort: spontaneous, unlabored. Circulation: No external hemorrhage present. Regular and strong central pulse, skin warm/dry/normal color. Hemorrhage: No external hemorrhage noted. Pulses: palpable . Skin color: pink. Disability Pupils are equal, round, reactive to light and accommodation. Client is alert. Exposure/Environment: All clothing and personal items were removed. Forensic evidence collection is not deemed to be indicated at this time. Items placed in patient belonging bag. There is no evidence of uncontrolled external bleeding. 21:30 Reassessment Breathing: Spontaneous respiratory effort, equal unlabored respirations, kj2 breath sounds clear bilaterally, regular pattern with symmetrical chest rise and fall. Respiratory effort Unlabored Circulation: No external hemorrhage noted. Regular and strong central pulse, skin warm/dry/normal color. Heart rhythm Sinus rhythm Disability: Pupils Pupils are equal, round, reactive to light and accomodation. Assessment: 19:23 General: Appears in no apparent distress. comfortable, Behavior is calm, cooperative, kt5 appropriate for age. General: pt c/o of generalized weakness and fatigue, pt states she fell 4 times last night due to weakness, denies loc. Pain: Denies pain. Neuro: No deficits noted. Whitney Agitation-Sedation Scale (RASS): 0 - Alert and Calm Level of Consciousness is awake, alert, obeys commands, Oriented to person, place, time. Cardiovascular: Reports fatigue, generalized weakness Heart tones S1 S2 present Capillary refill < 3 seconds Clubbing of nail beds is absent JVD is absent Pulses are all present. Edema is absent. Respiratory: Airway is patent Trachea midline Respiratory effort is even, unlabored, Respiratory pattern is regular, symmetrical. GI: No deficits noted. No signs and/or symptoms were reported involving the gastrointestinal system. Abdomen is flat, non-distended, Bowel sounds present X 4 quads. Abd is soft and non tender X 4 quads. : No deficits noted. No signs and/or symptoms were reported regarding the genitourinary system. Derm: No deficits noted. No signs and/or symptoms reported regarding the dermatologic system. Skin is fragile, is thin, Skin is dry, Skin is pink, warm \T\ dry. normal. Musculoskeletal: No deficits noted. No signs and/or symptoms reported regarding the musculoskeletal system. 19:37 Reassessment: Patient appears in no apparent distress at this time. Patient and/or kt5 family updated on plan of care and expected duration. Pain level reassessed. Patient is alert, oriented x 3, equal unlabored respirations, skin warm/dry/pink. pt c/o of nausea, iv meds given, will monitors. 20:03 General: report given to juliana rn all questions answered. kt5 20:10 Reassessment: Patient appears in no apparent distress at this time. Patient and/or kj2 family updated on plan of care and expected duration. Pain level reassessed. Patient is alert, oriented x 3, equal unlabored respirations, skin warm/dry/pink. 21:14 Reassessment: Patient appears in no apparent distress at this time. Patient and/or kj2 family updated on plan of care and expected duration. Pain level reassessed. Patient is alert, oriented x 3, equal unlabored respirations, skin warm/dry/pink. 21:57 Reassessment: vital signs will now be charted in [facility] as ordered. kj2 22:11 Reassessment: Patient appears in no apparent distress at this time. Patient and/or kj2 family updated on plan of care and expected duration. Pain level reassessed. Patient is alert, oriented x 3, equal unlabored respirations, skin warm/dry/pink. Vital Signs: 17:38 BP 144 / 54; Pulse 55; Resp 16; Temp 98.2; Pulse Ox 96% on R/A; Weight 47.17 kg; Height ll1 5 ft. 3 in. ; Pain 8/10; 19:37 BP 154 / 54; Pulse 53; Resp 16; Pulse Ox 96% ; kt5 21:00 BP 140 / 50; Pulse 55; Resp 16; Pulse Ox 95% on R/A; kj2 17:38 Body Mass Index 18.42 (47.17 kg, 160.02 cm) ll1 17:38 Pain Scale: Adult ll1 [place] Coma Score: 20:15 Eye Response: spontaneous(4). Motor Response: obeys commands(6). Verbal Response: kj2 oriented(5). Total: 15. Trauma Score (Adult): 20:15 Eye Response: spontaneous(1); Verbal Response: oriented(1); Motor Response: obeys kj2 commands(2); Systolic BP: > 89 mm Hg(4); Respiratory Rate: 10 to 29 per min(4); Gray Score: 15; Trauma Score: 12 ED Course: 17:37 Patient arrived in ED. ll1 17:37 [facility]ahida Espinal FNP-C [facility]. kb 17:37 Arm band placed on Patient placed in an exam room, on a stretcher. ll1 17:38 Gab Del Real MD is Attending Physician. kb 17:41 Triage completed. ll1 18:24 XRAY Chest (1 view) In Process Unspecified. EDMS 18:50 Initial lab(s) drawn, by dental laboratory assistant, sent to lab. Inserted saline lock: 22 gauge in left ts3 wrist, using aseptic technique. Blood collected. Flushed with 10 mL NS. 18:50 EKG done, by plasma center technician. reviewed by Zahida PANTOJA. ts3 18:54 CT Head C Spine In Process Unspecified. EDMS 19:17 Radha Wellington, PHILLIP is Primary Nurse. kt5 19:23 Dale Reddy MD is Hospitalizing Provider. kb 19:23 Bed in low position. Call light in reach. Side rails up X 1. Client placed on kt5 continuous cardiac and pulse oximetry monitoring. NIBP monitoring applied. site monitor on. Door closed. Noise minimized. Warm blanket given. Pillow given. 20:15 Provided Education on: call light. kj2 20:15 Patient maintains SpO2 saturation greater than 95% on room air. Thermoregulation: none kj2 needed. 21:13 Sonia Cochran, RN is Primary Nurse. kj2 22:44 Report given to PHILLIP Zabala. kj2 01/06 07:08 No provider procedures requiring assistance completed. Patient admitted, IV remains in cm10 place. Administered Medications: 01/05 19:37 Drug: Ondansetron IVP 4 mg IVP once; over 2 minutes Route: IVP; Site: left forearm; kt5 21:26 Follow up: Response: No adverse reaction kj2 Medication: 19:23 VIS not applicable for this client. kt5 Outcome: 19:24 Decision to Hospitalize by Provider. kb 01/06 07:08 Admitted to ER Hold. Please see [facility] for further documentation. cm10 Condition: stable Instructed on the need for admit, 14:26 Patient left the ED. cm10 Signatures: Dispatcher [employer] EDMS Zahida Espinal, FINANCIAL SECRETARY-C FINANCIAL SECRETARY-CkRaleigh Edmondson, RN RN ll1 Tamie Villalobso RN RN cm10 Sonia Cochran, RN RN kj2 Arely Villeda 3 Radha Wellington, RN RN kt5
--- NOTE | 2025-01-05 19:25 | EDPHYS ---
Physician Documentation [facility] Name: Michelle Saavedra Age: 69 yrs Sex: Female : 1955 Arrival Date: 01/05/2025 Time: 17:21 Bed 19 Private MD: ED Physician Gab Del Real HPI: 01/05 18:02 This 69 yrs old Female presents to ER via Wheelchair with complaints of Fall kb Injury. 18:04 Pt is a 69 year old female who presents for chronic abd pain, 4 days of chest pain and kb fall. States she was admitted a few days ago for the chest pain and left yesterday because she had important things to do with her dog. States she fell in her restroom last night, hit her forehead then tried to get up and fell backwards. States she couldn't get up on her own so her son helped her when he got home about 30 minutes later. . Historical: - Allergies: 17:37 No Known Allergies; ll1 - PMHx: 17:37 Atrial fibrillation; COPD; Hypercholesterolemia; Hypertensive disorder; mechanical ll1 valve; - PSHx: 17:37 hip surgery; ll1 - Immunization history:: Adult Immunizations up to date. - Infectious Disease History:: Denies. - Immunization history: Last tetanus immunization: unknown. - Social history:: Smoking status: Patient denies any tobacco usage or history of. ROS: 18:08 Constitutional: As per HPI kb Exam: 18:08 Constitutional: This is a well developed, well nourished patient who is awake, alert, kb and in no acute distress. ENT: Moist Mucous membranes Cardiovascular: Regular rate Respiratory: Respirations even and unlabored. No increased work of breathing. Talking in full sentences Skin: Warm, dry with normal turgor. Normal color. MS/ Extremity: Pulses equal, no cyanosis. Neurovascular intact. Full, normal range of motion. Neuro: Awake and alert, GCS 15, oriented to person, place, time, and situation. 18:08 Head/face: Noted is no obvious of injury or deformity except ecchymosis, that is mild, of the right side of forehead, 18:49 ECG was reviewed by the Attending Physician. kb Vital Signs: 17:38 BP 144 / 54; Pulse 55; Resp 16; Temp 98.2; Pulse Ox 96% on R/A; Weight 47.17 kg; Height ll1 5 ft. 3 in. ; Pain 8/10; 19:37 BP 154 / 54; Pulse 53; Resp 16; Pulse Ox 96% ; kt5 21:00 BP 140 / 50; Pulse 55; Resp 16; Pulse Ox 95% on R/A; kj2 17:38 Body Mass Index 18.42 (47.17 kg, 160.02 cm) ll1 17:38 Pain Scale: Adult ll1 [place] Coma Score: 20:15 Eye Response: spontaneous(4). Motor Response: obeys commands(6). Verbal Response: kj2 oriented(5). Total: 15. Trauma Score (Adult): 20:15 Eye Response: spontaneous(1); Verbal Response: oriented(1); Motor Response: obeys kj2 commands(2); Systolic BP: > 89 mm Hg(4); Respiratory Rate: 10 to 29 per min(4); Gray Score: 15; Trauma Score: 12 MDM: 17:38 Medical Screening Exam initiated kb 19:22 Differential diagnosis: abrasion, closed head injury, contusion, weakness, acute mi, kb arrhythmia. Data reviewed: vital signs, nurses notes. Consideration of Admission/Observation Patient was admitted/placed on observation. Escalation of care including admission/observation considered. Management of patient was discussed with the following: Hospitalist: Pt accepted for admission by Dr Reddy. Counseling: I had a detailed discussion with the patient and/or guardian regarding the historical points, exam findings, and any diagnostic results supporting the discharge/admit diagnosis, lab results, radiology results, the need for further work-up and treatment in the hospital. 01/05 18:04 Order name: Basic Metabolic Panel; Complete Time: 19:12 kb 01/05 18:04 Order name: CBC with Diff; Complete Time: 18:49 kb 01/05 18:04 Order name: LFT's; Complete Time: 19:12 kb 01/05 18:04 Order name: Magnesium; Complete Time: 19:12 kb 01/05 18:04 Order name: Troponin HS; Complete Time: 19:12 kb 01/05 20:13 Order name: CBC with Automated Diff EDMS 01/05 20:13 Order name: CBC with Automated Diff; Complete Time: 09:56 EDMS 01/05 20:13 Order name: Comprehensive Metabolic Panel EDMS 01/05 20:13 Order name: Comprehensive Metabolic Panel; Complete Time: 09:56 EDMS 01/05 20:13 Order name: Troponin High Sensitivity EDMS 01/05 20:13 Order name: Troponin High Sensitivity; Complete Time: 09:56 EDMS 01/06 11:01 Order name: Protime (+INR); Complete Time: 11:53 EDMS 01/06 11:01 Order name: PTT, Activated Partial Thromb; Complete Time: 11:53 EDMS 01/06 11:04 Order name: NT PRO-BNP; Complete Time: 11:53 EDMS 01/05 17:42 Order name: CT Head C Spine; Complete Time: 19:17 kb 01/05 18:04 Order name: XRAY Chest (1 view); Complete Time: 18:41 kb 01/06 13:44 Order name: CT; Complete Time: 13:52 EDMS 01/05 18:04 Order name: Cardiac monitoring; Complete Time: 19:44 kb 01/05 18:04 Order name: EKG - Nurse/Tech; Complete Time: 18:49 kb 01/05 18:04 Order name: IV Saline Lock; Complete Time: 18:49 kb 01/05 18:04 Order name: Labs collected and sent; Complete Time: 18:49 kb 01/05 18:04 Order name: O2 Per Protocol; Complete Time: 19:44 kb 01/05 18:04 Order name: O2 Sat Monitoring; Complete Time: 19:44 kb EC:49 Rate is 52 beats/min. Rhythm is regular. QRS [place] is Normal. ID interval is prolonged kb at 298 msec. QRS interval is normal at 120 msec. QT interval is normal at 479 msec. Administered Medications: 19:37 Drug: Ondansetron IVP 4 mg IVP once; over 2 minutes Route: IVP; Site: left forearm; kt5 21:26 Follow up: Response: No adverse reaction kj2 Disposition Summary: 01/05/25 19:24 Hospitalization Ordered Notes: Hospitalization Status: Observation kb Provider: Dale Reddy Condition: Stable kb Problem: new kb Symptoms: are unchanged kb Bed/Room Type: Standard kb Location: Telemetry/MedSurg (observation)(01/06/25 13:37) Room Assignment: [facility](01/06/25 13:37) ss Diagnosis - Fall on same level, unspecified kb - Unspecified injury of head, initial encounter kb - Chest pain, unspecified kb - Weakness kb Forms: - Medication Reconciliation Form kb - SBAR form kb - Leadership Thank You Letter kb Signatures: Dispatcher [employer] EDMS Zahida Espinal, HOSPITAL FELLOW-C HOSPITAL FELLOW-Marguerite Leonard, RN RN ss Raleigh Cyr RN RN ll1 Ofelia Domingo rv1 Sonia Cochran, RN RN kj2 Radha Wellington RN RN kt5 Corrections: (The following items were deleted from the chart) 17:42 17:42 Head C Spine MPR Wo Con+CT.RAD.BRZ ordered. EDMS EDMS 18:05 18:05 Chest Single View+RAD.RAD.BRZ ordered. EDMS EDMS 20:18 19:24 Telemetry/MedSurg (observation) kb rv1 20:18 19:24 kb rv1 01/06 13:37 01/05 20:18 BR ER HOLD rv1 ss 01/06 13:37 01/05 20:18 ERHOLD- rv1
[2025-01-05] MEDS ORDERED: ONDANSETRON 4 MG/2 ML VIAL ONE (19:34)
--- NOTE | 2025-01-05 20:05 | P.HP ---
Certification for Inpatient Patient admitted to: Observation With expected LOS: <2 Midnights Practitioner: I am a practitioner with admitting privileges, knowledge of patient current condition, hospital course, and medical plan of care. Services: Services provided to patient in accordance with Admission requirements found in Title 42 Section 412.3 of the Code of Federal Regulations Patient History Date of Service: 01/05/25 Reason for admission: Chest PAIN History of Present Illness: 69 year old female with pmhx mechanical heart valve, A-fib, CKD, COPD, CHF, hypertension, hyperlipidemia who presents to the ED with chief complaint of shortness of breath which started yesterday and has been progressively getting worse associated with some left-sided chest pain. Denies any fever or chills. No nausea vomiting or diarrhea. Pressure-like feeling, retrosternally with radiation to left side. No sick contacts. Denies any diaphoresis. The patient was assessed in the ER and was admitted for further management of CHF exacerbation and chest pain rule out ACS Allergies No Known Allergies Allergy (Verified 02/20/23 11:06) Home medications list reviewed: Yes Home Medications: Atorvastatin Calcium 80 mg PO BEDTIME 12/25/21 Gabapentin 300 mg PO TID 12/25/21 Zolpidem Tartrate [Ambien*] 10 mg PO BEDTIME 12/25/21 Ezetimibe [Zetia*] 10 mg PO DAILY 08/21/22 Amiodarone HCl [Cordarone*] 200 mg PO DAILY 02/20/23 Warfarin Sodium [Coumadin*] 1 mg PO TuThSa@1700 05/01/23 Metoprolol Tartrate [Lopressor*] 37.5 mg PO BID 08/22/24 Warfarin Sodium [Coumadin*] 1.5 mg PO SuMoWeFr@1700 08/22/24 Furosemide [Lasix*] 40 mg PO BIDL #60 tab 01/04/25 Potassium Chloride 10 meq PO DAILY #30 tab 01/04/25 Spironolactone [Aldactone] 25 mg PO DAILY #30 tab 01/04/25 - Past Medical/Surgical History Diabetic: No Past Medical History: Reviewed- Non-Contributory -: arthritis back -: Atrial Fibrillation -: Aortic Valve Replacement (Mechanical) -: Thoracic Aortic Aneurysm -: CHF -: HTN -: GERD -: HLD -: Anemia -: A-fib with RVR -: anemia -: AFIB with RVR Past Surgical History: Reviewed- Non-Contributory -: aortic valve replacement -: tubal ligation -: R Hip Replacement Psychosocial/ Personal History: Patient lives at home with her children - Family History Brother -: Cancer Notes: heart attack Mother -: Heart disease, Diabetes Notes: of heart attack Father -: Heart disease Notes: of heart attack Sister -: Cancer Notes: sisters x2 - DM. sister x1 - heart attack. sister- lung cancer - Social History Smoking Status: Never smoker Alcohol use: No CD- Drugs: No Caffeine use: No Physical Examination - Studies Laboratory Data (last 24 hrs) 01/05/25 01/05/25 18:39 18:39 WBC 6.80 Hgb 10.3 L Hct 31.4 L Plt Count 244 Sodium 139 Potassium 3.9 BUN 21 H Creatinine 1.13 H Glucose 108 H Magnesium 2.0 Total Bilirubin 0.5 AST 30 ALT 25 Alkaline Phosphatase 103 Assessment and Plan - Plan Acute on chronic CHF diastolic Monitor closely on telemetry Started on aggressive diuresis X-ray findings consistent with CHF Oxygen supplementation Will try to wean down oxygen requirement Continue home medications Titrate as needed Cardiology consult Chest pain rule out ACS Will trend cardiac enzymes Will monitor telemetry Started on aspirin and statin EKG did not show any acute changes suggestive of ischemia HX History of atrial fibrillation/mechanical aortic valve repair on chronic anticoagulation with warfarin Daily INR, Hypertension Antihypertensives titrated Continue home medications and titrate as needed Hyperlipidemia Continue statin Anemia of chronic disease Monitor H&H closely No overt bleeding at this time GI/DVT prophylaxis Advanced directive full code Discharge Plan: Home Plan to discharge in: 48 Hours - Advance Directives Does patient have a Living Will: No Does patient have a Durable POA for Healthcare: No - Code Status/Comfort Care Code Status: Full Code Time Spent Managing Pts Care (In Minutes): 48
[2025-01-05] MEDS ORDERED: ONDANSETRON 4 MG/2 ML VIAL IV PRN (20:09)
[2025-01-05] MEDS ORDERED: HYDRALAZINE HCL 20 MG/ML VIAL IV PRN (23:38)
[2025-01-05] MEDS ORDERED: HEPARIN 5000 UNIT/ML 1 ML VIAL ONE (23:59)
[2025-01-05] MEDS ORDERED: ACETAMINOPHEN 325 MG TABLET ONE (23:59)
[2025-01-06] MEDS: ACETAMINOPHEN 325 MG TABLET PO PRN (00:36)
[2025-01-06] MEDS: HEPARIN 5000 UNIT/ML 1 ML VIAL SQ SCH (00:47)
[2025-01-06 05:13] LABS: Absolute Lymphocytes (CBC) 0.7 K/uL (0.7-4.9); Hematocrit 30.7 % (36.0-45.0); Hemoglobin 10.3 g/dL (12.0-15.0); MCH 30.0 pg (27.0-35.0); MCHC 33.5 g/dL (32.0-36.0); MCV 89.7 fL (80-100); MPV 8.1 fL (7.6-11.3); Nucleated RBC Absolute Count 0.0 (0-0); Nucleated Red Blood Cells % 0.2 % (0-0); RBC Red Blood Cell Count 3.42 M/uL (3.86-4.86); White Blood Count 5.80 thou/uL (4.3-10.9)
[2025-01-06 05:30] LABS: ALT/SGPT 24.0 U/L (13-56); AST/SGOT 26.0 U/L (15-37); Albumin 2.8 g/dL (3.4-5.0); Albumin/Globulin Ratio 0.8 (1.1-1.8); Alkaline Phosphatase 97.0 U/L (45-117); Anion Gap 7.8 mEq/L (5.0-15.0); BUN Blood Urea Nitrogen 22.0 mg/dL (7-18); Globulin 3.4 g/dL (2.3-3.5); Glucose Level 97.0 mg/dL (74-106); Potassium 3.8 mEq/L (3.5-5.1)
[2025-01-06] MEDS ORDERED: HYDROMORPHONE HCL 1 MG/ML INJ ONE ×2 (08:19→13:03)
[2025-01-06] MEDS: HYDROMORPHONE HCL 1 MG/ML INJ IV ONE (08:27)
[2025-01-06] MEDS ORDERED: GABAPENTIN 300 MG CAP ONE (09:47)
[2025-01-06] MEDS ORDERED: HEPARIN 5000 UNIT/ML 1 ML VIAL ONE (09:48)
[2025-01-06] MEDS ORDERED: METOPROLOL TAR 25 MG TAB ONE (09:48)
[2025-01-06] MEDS ORDERED: FUROSEMIDE 40 MG/4 ML VIAL ONE (09:48)
[2025-01-06] MEDS: METOPROLOL TAR 25 MG TAB PO SCH (09:50)
[2025-01-06] MEDS ORDERED: SPIRONOLACTONE 25 MG TABLET ONE (09:59)
[2025-01-06] MEDS ORDERED: AMIODARONE HCL 200 MG TAB ONE (10:10)
[2025-01-06] MEDS: AMIODARONE HCL 200 MG TAB PO SCH (10:27)
[2025-01-06] MEDS: SPIRONOLACTONE 25 MG TABLET PO SCH (10:27)
[2025-01-06] MEDS: FUROSEMIDE 40 MG/4 ML VIAL IV SCH (10:28)
[2025-01-06] MEDS: GABAPENTIN 300 MG CAP PO SCH (10:28)
--- NOTE | 2025-01-06 10:44 | P.CNS ---
Date of Consult: 01/06/25 Chief Complaint: Chest PAIN History of Present Illness: Patient with PMH of mechanical AVR, AF, Diastolic heart failure, presented with abdominal and chest pain, denies palpitations, no syncope, no breathing problems. Allergies No Known Allergies Allergy (Verified 02/20/23 11:06) Home medications list reviewed: Yes Home Medications: Atorvastatin Calcium 80 mg PO BEDTIME 12/25/21 Gabapentin 300 mg PO TID 12/25/21 Zolpidem Tartrate [Ambien*] 10 mg PO BEDTIME 12/25/21 Ezetimibe [Zetia*] 10 mg PO DAILY 08/21/22 Amiodarone HCl [Cordarone*] 200 mg PO DAILY 02/20/23 Warfarin Sodium [Coumadin*] 1 mg PO TuThSa@1700 05/01/23 Metoprolol Tartrate [Lopressor*] 37.5 mg PO BID 08/22/24 Warfarin Sodium [Coumadin*] 1.5 mg PO SuMoWeFr@1700 08/22/24 Furosemide [Lasix*] 40 mg PO BIDL #60 tab 01/04/25 Potassium Chloride 10 meq PO DAILY #30 tab 01/04/25 Spironolactone [Aldactone] 25 mg PO DAILY #30 tab 01/04/25 - Past Medical/Surgical History Diabetic: No -: arthritis back -: Atrial Fibrillation -: Aortic Valve Replacement (Mechanical) -: Thoracic Aortic Aneurysm -: CHF -: HTN -: GERD -: HLD -: Anemia -: A-fib with RVR -: anemia -: AFIB with RVR -: aortic valve replacement -: tubal ligation -: R Hip Replacement Psychosocial/ Personal History: Patient lives at home with her children - Family History Brother Medical History: Cancer Notes: heart attack Mother Medical History: Heart disease, Diabetes Notes: of heart attack Father Medical History: Heart disease Notes: of heart attack Sister Medical History: Cancer Notes: sisters x2 - DM. sister x1 - heart attack. sister- lung cancer - Social History Smoking Status: Current every day smoker Alcohol use: No CD- Drugs: No Caffeine use: No Review of Systems 10-point ROS is otherwise unremarkable Physical Examination Temp Pulse Resp BP Pulse Ox 97.8 F 53 18 160/44 H 99 01/06/25 08:03 01/06/25 08:03 01/06/25 08:57 01/06/25 08:03 01/06/25 08:57 General: Alert, In no apparent distress HEENT: Atraumatic, PERRLA, Mucous membr. moist/pink, EOMI, Sclerae nonicteric Neck: Supple, 2+ carotid pulse no bruit, No LAD, Without JVD or thyroid abnormality Respiratory: Clear to auscultation bilaterally, Normal air movement Cardiovascular: Regular rate/rhythm, Normal S1 S2 Gastrointestinal: Normal bowel sounds, No tenderness Musculoskeletal: No tenderness Integumentary: No rashes Neurological: Normal gait, Normal speech, Normal tone, Normal affect Lymphatics: No axilla or inguinal lymphadenopathy Laboratory Data (last 24 hrs) 01/05/25 01/05/25 18:39 18:39 WBC 6.80 Hgb 10.3 L Hct 31.4 L Plt Count 244 Sodium 139 Potassium 3.9 BUN 21 H Creatinine 1.13 H Glucose 108 H Magnesium 2.0 Total Bilirubin 0.5 AST 30 ALT 25 Alkaline Phosphatase 103 - Problems (1) Atrial fibrillation Current Visit: No Status: Acute Plan: continue Amiodarone 200 mg po daily continue Coumadin, INR 2-3 Continue to monitor on tele (2) Chest pain Current Visit: No Status: Acute Plan: atypical, cardiac enzymes are negative x3 No further cardiac work up needed continue Lipitor 40 mg daily Qualifiers: Chest pain type: unspecified Qualified Code(s): R07.9 - Chest pain, unspeci fied (3) Mechanical heart valve present Current Visit: No Status: Chronic Plan: continue Coumadin for INR goal 2-3 recent echo shown normal valve function.
[2025-01-06 11:01] LABS: PT Prothrombin Time 18.2 SECONDS (10-13.0); PTT, Activated Partial Thromb 30.5 SECONDS (27.2-37.4); Protime INR 1.63
[2025-01-06] MEDS: EZETIMIBE 10 MG TAB PO SCH (11:27)
[2025-01-06] MEDS ORDERED: HYDRALAZINE HCL 20 MG/ML VIAL IV PRN (11:40)
--- NOTE | 2025-01-06 13:43 | RAD REPORT ---
EXAM: CT CHEST, ABDOMEN AND PELVIS WITH CONTRAST CLINICAL INDICATION: Female, 69 years old. pain TECHNIQUE: CT chest, abdomen, and pelvis was performed, following the administration of contrast, as per department protocol. Axial, sagittal and coronal reconstructions were obtained. One or more of the following dose reduction techniques were used: Automated exposure control, adjustment of the mA a nd/or kV according to patient size, and/or iterative reconstruction. Unless otherwise specified, incidental findings do not require dedicated imaging follow-up. COMPARISON: 01/03/2025 FINDINGS: LUNGS AND AIRWAYS: No evidence of airspace or interstitial process. Decreased density of the ill-defi hardik ovoid groundglass opacity within the peripheral right upper lobe measuring 2.2 cm, may relate to a resolving focus of pneumonitis. PLEURA: Stable trace left pleural effusion. No pneumothorax. MEDIASTINUM AND LYMPH NODES: No mediastinal mass or fluid collection. Normal size mediastinal, hilar, and axillary lymph nodes. THORACIC AORTA: Sequelae of ascending aorta graft reconstruction and prosthetic aortic valve. Fusifor m aneurysmal dilation at the junction with the arch, and along the proximal to mid descending aorta, with maximum caliber 3.8 cm. PULMONARY ARTERIES: Normal caliber. OSSEOUS STRUCTURES AND CHEST WALL: Intact. LIVER: Normal in size and contour. No focal lesion or biliary dilitation. BILIARY SYSTEM: Contracted gallbladder over multiple stones. Pericholecystic fat stranding seen on th e prior exam is less pronounced today. PANCREAS: No mass, ductal dilation, or kyle-pancreatic fluid. SPLEEN: Normal size. No focal lesion. ADRENALS: Normal; no mass. KIDNEYS AND URETERS: Normal size and contour. No hydronephrosis. URINARY BLADDER: Normal contour. GASTROINTESTINAL TRACT: No bowel obstruction, free air, significant free fluid or abscess. APPENDIX: No inflammatory changes in region of appendix. LYMPH NODES: No lymphadenopathy. ABDOMINAL AORTA AND OTHER VESSELS: Normal caliber aorta and IVC. MUSCULOSKELETAL: Right hip arthroplasty hardware in place, results in streak artifact which limits ev aluation. Mild superior endplate compression deformities at T5, T7, and moderate compression deformity at L1, stable, with stable posterior cortical buckling at L1. No acute or suspicious osseou s abnormality. IMPRESSION: No acute or significant abnormalities seen in the chest, abdomen or pelvis. Partial improvement in de nsity of ovoid right lower lobe groundglass opacity, may relate to improving pneumonitis. Stable findings including aneurysmal dilation of the aortic arch and descending thoracic aorta, woody lithiasis, and multiple superior endplate vertebral compression deformities of indeterminate age.
[2025-01-06] MEDS: HYDROMORPHONE HCL 1 MG/ML INJ IV PRN (14:03)
--- NOTE | 2025-01-06 16:28 | P.PN ---
Subjective Date of Service: 01/06/25 Chief Complaint: Chest PAIN Subjective: Other (Patient is complaining of postprandial pain. CT chest, abdomen pelvis is unremarkable for acute findings. She has known aneurysm of the ascending and descending aorta but these appear stable. She is requesting to stay due to intractable abdominal pain. She has been getting IV Dilaudid for pain) Physical Examination - Vital Signs Temperature: 98 F Blood Pressure: 158/68 Pulse: 53 Respirations: 16 Pulse Ox (%): 98 - Physical Exam General: Cooperative, Cachectic, Acute distress HEENT: Atraumatic, Normocephalic Respiratory: Clear to auscultation bilaterally, Normal air movement Cardiovascular: No edema, Normal pulses, Regular rate/rhythm, Normal S1 S2, Systolic murmur Neurological: Normal speech - Studies Laboratory Data (last 24 hrs) 01/05/25 01/05/25 18:39 18:39 WBC 6.80 Hgb 10.3 L Hct 31.4 L Plt Count 244 Sodium 139 Potassium 3.9 BUN 21 H Creatinine 1.13 H Glucose 108 H Magnesium 2.0 Total Bilirubin 0.5 AST 30 ALT 25 Alkaline Phosphatase 103 Assessment And Plan - Plan Assessment Patient is a 69-year-old female with known past medical history of mechanical aortic valve, atrial fibrillation and ascending/descending aortic aneurysm she was admitted after she presented with chest pain and shortness of breath. ACS has been ruled out with negative cardiac enzymes. Patient's hospital course has been complicated by intractable abdominal pain. She is staying for pain control. Abdominal pain Chest pain Grade 2 diastolic CHF Bradycardia Mechanical aortic valve on warfarin1.5 and 1 mg on alternating days Subtherapeutic INR Atrial fibrillation PLAN: CT abdomen and pelvis without acute findings Lactic acid pending Continue pain control Case discussed with GI. Concern for chronic mesenteric ischemia. She is high r isk due to her history of atherosclerotic disease Patient will need to follow-up outpatient with GI for endoscopic evaluation Cardiac clearance by [facility] cardiology Patient can be discharged once her pain is controlled Increase warfarin to 1.5 mg daily She will need to be followed at the warfarin clinic
[2025-01-06] MEDS: WARFARIN SODIUM 1 MG TAB PO SCH (16:48)
[2025-01-06] MEDS ORDERED: WARFARIN SODIUM 1 MG TAB PO SCH (17:00)
[2025-01-06] MEDS ORDERED: HYOSCYAMINE SULF 0.125 MG TAB PO SCH (18:00)
[2025-01-06] MEDS: ATORVASTATIN 80 MG TAB PO SCH (21:06)
[2025-01-07 08:10] LABS: PT Prothrombin Time 16.8 SECONDS (10-13.0); PTT, Activated Partial Thromb 29.9 SECONDS (27.2-37.4); Protime INR 1.5
[2025-01-07] MEDS: HYOSCYAMINE SULF 0.125 MG TAB PO SCH (08:39)
--- NOTE | 2025-01-07 11:54 | P.PN ---
Subjective Date of Service: 01/07/25 Chief Complaint: Chest PAIN Subjective: No new changes, No C/O voiced, Tolerating diet, Improving Review of Systems 10-point ROS is otherwise unremarkable Physical Examination - Vital Signs Temperature: 98.1 F Blood Pressure: 126/48 Pulse: 54 Respirations: 14 Pulse Ox (%): 97 - Physical Exam General: Alert, In no apparent distress HEENT: Atraumatic, PERRLA, EOMI Neck: Supple, JVD not distended Respiratory: Clear to auscultation bilaterally, Normal air movement Cardiovascular: Regular rate/rhythm, Normal S1 S2 Gastrointestinal: Normal bowel sounds, No tenderness Musculoskeletal: No tenderness Integumentary: No rashes Neurological: Normal speech, Normal tone, Normal affect Lymphatics: No axilla or inguinal lymphadenopathy - Studies Medications List Reviewed: Yes Assessment And Plan - Current Problems (Diagnosis) (1) Atrial fibrillation Current Visit: No Status: Acute Plan: continue Amiodarone 200 mg po daily continue Coumadin, INR 2-3 Continue to monitor on tele (2) Chest pain Current Visit: No Status: Acute Plan: atypical, cardiac enzymes are negative x3 No further cardiac work up needed continue Lipitor 40 mg daily Qualifiers: Chest pain type: unspecified Qualified Code(s): R07.9 - Chest pain, unspecified (3) Mechanical heart valve present Current Visit: No Status: Chronic Plan: continue Coumadin for INR goal 2-3 recent echo shown normal valve function. (4) Preoperative clearance Current Visit: Yes Status: Acute Plan: we were asked if we can do clearance for patient for outpatient GI procedure, patient has a long time follow up with [facility] Cardiology and Clearance need to be obtained from them as patient will need to be bridged at time of procedure with lovenox for the mechanical valve. Cardiology will sign off, please call with any questions.
--- NOTE | 2025-01-07 12:31 | P.PN ---
Subjective Date of Service: 01/07/25 Chief Complaint: Chest PAIN Subjective: No new changes (Patient continues to have subtherapeutic INR. She has a mechanical aortic valve and is currently on warfarin. Started on heparin infusion for bridging) Physical Examination - Vital Signs Temperature: 98.1 F Blood Pressure: 126/48 Pulse: 54 Respirations: 14 Pulse Ox (%): 97 - Physical Exam General: In no apparent distress, Cooperative, Cachectic HEENT: Atraumatic, Normocephalic Respiratory: Other (Breathing is not labored) Cardiovascular: No edema, Normal pulses, Regular rate/rhythm, Normal S1 S2, Systolic murmur Neurological: Normal speech - Studies Medications List Reviewed: Yes Assessment And Plan - Plan Assessment Patient is a 69-year-old female with known past medical history of mechanical aortic valve, atrial fibrillation and ascending/descending aortic aneurysm she was admitted after she presented with chest pain and shortness of breath. ACS has been ruled out with negative cardiac enzymes. Patient's hospital course has been complicated by intractable abdominal pain. She stay in the hospital for pain control. She received a trial of Levsin. Additionally, patient's INR continued to be subtherapeutic and downtrending. She will be started on heparin infusion today for bridging while on warfarin. Abdominal pain Chest pain Grade 2 diastolic CHF Bradycardia Mechanical aortic valve on warfarin1.5 and 1 mg on alternating days Subtherapeutic INR Atrial fibrillation PLAN: She is currently on warfarin 1.5 mg daily Patient started on heparin infusion for subtherapeutic INR Goal INR 2-[address] abdomen and pelvis without acute findings She stay in the hospital for trial of Levsin Case discussed with GI. Concern for chronic mesenteric ischemia. She is high risk due to her history of atherosclerotic disease Patient will need to follow-up outpatient with GI for endoscopic evaluation Cardiac clearance by [facility] cardiology Patient can be discharged once INR is therapeutic She will need to be followed at the warfarin clinic
[2025-01-07] MEDS: HEPARIN/D5W 25,000 UNIT/500 ML BAG IV SCH (13:42)
[2025-01-07] MEDS ORDERED: WARFARIN SODIUM 1 MG TAB PO SCH (17:00)
[2025-01-07 22:31] LABS: PT Prothrombin Time 17.3 SECONDS (10-13.0); PTT, Activated Partial Thromb 68.3 SECONDS (27.2-37.4); Protime INR 1.55
[2025-01-08 03:09] LABS: PT Prothrombin Time 17.4 SECONDS (10-13.0); PTT, Activated Partial Thromb 78.2 SECONDS (27.2-37.4); Protime INR 1.56
[2025-01-08 04:50] LABS: Absolute Lymphocytes (CBC) 1.0 K/uL (0.7-4.9); Hematocrit 28.8 % (36.0-45.0); Hemoglobin 9.3 g/dL (12.0-15.0); MCH 29.4 pg (27.0-35.0); MCHC 32.4 g/dL (32.0-36.0); MCV 90.8 fL (80-100); MPV 8.5 fL (7.6-11.3); Nucleated RBC Absolute Count 0.0 (0-0); Nucleated Red Blood Cells % 0.0 % (0-0); RBC Red Blood Cell Count 3.17 M/uL (3.86-4.86); White Blood Count 7.10 thou/uL (4.3-10.9)
[2025-01-08 05:08] LABS: Anion Gap 9.7 mEq/L (5.0-15.0); BUN Blood Urea Nitrogen 33.0 mg/dL (7-18); Glucose Level 127.0 mg/dL (74-106); Magnesium 2.1 mg/dL (1.6-2.4); Potassium 4.7 mEq/L (3.5-5.1)
[2025-01-08] MEDS: NA CHLORIDE 0.9% 500 ML IV ONE (08:52)
--- NOTE | 2025-01-08 09:37 | P.PN ---
Subjective Date of Service: 01/08/25 Chief Complaint: Chest PAIN Subjective: Improving (Patient is feeling better. Pain is better controlled. She is on warfarin with heparin infusion for bridging for her mechanical aortic valve.) Physical Examination - Vital Signs Temperature: 97.9 F Blood Pressure: 153/59 Pulse: 57 Respirations: 15 Pulse Ox (%): 92 - Physical Exam General: Alert, In no apparent distress, Cooperative, Cachectic HEENT: Atraumatic, Normocephalic Respiratory: Other (breathing is not laboured on room air) Cardiovascular: No edema, Systolic murmur - Studies Medications List Reviewed: Yes Assessment And Plan - Plan Assessment Patient is a 69-year-old female with known past medical history of me chanical aortic valve, atrial fibrillation and ascending/descending aortic aneurysm she was admitted after she presented with chest pain and shortness of breath. ACS has been ruled out with negative cardiac enzymes. Patient's hospital course has been complicated by intractable abdominal pain. She stay in the hospital for pain control. She received a trial of Levsin. Additionally, patient's INR continued to be subtherapeutic and downtrending. She will be started on heparin infusion today for bridging while on warfarin. IRVING Abdominal pain Chest pain Grade 2 diastolic CHF Bradycardia Mechanical aortic valve on warfarin1.5 and 1 mg on alternating days Subtherapeutic INR Atrial fibrillation PLAN: NS bolus due to Cr RISE Discontinue diurectis: IV lasix and spironolactone Day 2 of heparin infusion and scheduled p.o. warfarin INR is 1.53, goal INR 2-3 for mechanical aortic valve We may have to increase her warfarin to 2 mg tomorrow if no improvement of INR CT abdomen and pelvis without acute findings Her abdominal pain is better controlled with Levsin Case discussed with GI. Concern for chronic mesenteric ischemia. She is high risk due to her history of atherosclerotic disease Patient will need to follow-up outpatient with GI for endoscopic evaluation Cardiac clearance by [facility] cardiology Patient can be discharged once INR is therapeutic She will need to be followed at the warfarin clinic
[2025-01-08 11:32] LABS: PT Prothrombin Time 17.4 SECONDS (10-13.0); PTT, Activated Partial Thromb 95.1 SECONDS (27.2-37.4); Protime INR 1.56
[2025-01-08 19:29] VITALS: BMI 18.2
[2025-01-08 19:43] LABS: PT Prothrombin Time 17.0 SECONDS (10-13.0); PTT, Activated Partial Thromb 62.6 SECONDS (27.2-37.4); Protime INR 1.52
--- NOTE | 2025-01-09 15:49 | P.PN ---
Subjective Date of Service: 01/09/25 Chief Complaint: Chest PAIN Subjective: Improving (No acute events overnight. Unable to obtain INR today as patient is a hard stick. Currently getting midline.) Physical Examination - Vital Signs Temperature: 98 F Blood Pressure: 117/50 Pulse: 55 Respirations: 14 Pulse Ox (%): 98 - Physical Exam General: Alert, In no apparent distress, Cooperative, Cachectic HEENT: Atraumatic Respiratory: Clear to auscultation bilaterally, Normal air movement Cardiovascular: No edema, Normal pulses, Regular rate/rhythm, Normal S1 S2, Systolic murmur Neurological: Normal speech - Studies Medications List Reviewed: Yes Assessment And Plan - Plan Assessment Patient is a 69-year-old female with known past medical history of mechanical aortic valve, atrial fibrillation and ascending/descending aortic aneurysm she was admitted after she presented with chest pain and shortness of breath. ACS has been ruled out with negative cardiac enzymes. Patient's hospital course has been complicated by intractable abdominal pain. She stay in the hospital for pain control. She received a trial of Levsin. Additionally, patient's INR continued to be subtherapeutic and downtrending. She will be started on heparin infusion today for bridging while on warfarin. [place] Abdominal pain Chest pain Grade 2 diastolic CHF Bradycardia Mechanical aortic valve on warfarin1.5 and 1 mg on alternating days Subtherapeutic INR Atrial fibrillation PLAN: Unable to obtain labs today since patient is a hard stick Will obtain a BMP and INR once the midline has been established. Warfarin and heparin infusion adjustment be made based on the above values Patient is on anticoagulation for mechanical aortic valve and presented with a subtherapeutic INR We may have to increase her warfarin to 2 mg if no improvement of INR CT abdomen and pelvis without acute findings Her abdominal pain is better controlled with Levsin Case discussed with GI. Concern for chronic mesenteric ischemia. She is high risk due to her history of atherosclerotic disease Patient will need to follow-up outpatient with GI for endoscopic evaluation Cardiac clearance by [facility] cardiology Patient can be discharged once INR is therapeutic She will need to be followed at the warfarin clinic
[2025-01-09 16:16] LABS: PT Prothrombin Time 17.1 SECONDS (10-13.0); PTT, Activated Partial Thromb 61.7 SECONDS (27.2-37.4); Protime INR 1.53
[2025-01-09 16:20] LABS: Anion Gap 7.0 mEq/L (5.0-15.0); BUN Blood Urea Nitrogen 29.0 mg/dL (7-18); Glucose Level 115.0 mg/dL (74-106); Magnesium 2.4 mg/dL (1.6-2.4); Potassium 5.0 mEq/L (3.5-5.1)
[2025-01-09 16:46] LABS: Absolute Lymphocytes (CBC) 0.7 K/uL (0.7-4.9); Hematocrit 25.3 % (36.0-45.0); Hemoglobin 8.3 g/dL (12.0-15.0); MCH 30.0 pg (27.0-35.0); MCHC 33.0 g/dL (32.0-36.0); MCV 90.9 fL (80-100); MPV 8.4 fL (7.6-11.3); Nucleated RBC Absolute Count 0.0 (0-0); Nucleated Red Blood Cells % 0.1 % (0-0); RBC Red Blood Cell Count 2.78 M/uL (3.86-4.86); White Blood Count 7.50 thou/uL (4.3-10.9)
[2025-01-09] MEDS: WARFARIN SODIUM 2 MG TAB PO SCH (17:47)
[2025-01-09] MEDS: Mupirocin NASAL 2 APPL/1 GM TUBE NAS SCH (20:21)
[2025-01-10 08:02] LABS: Anion Gap 8.6 mEq/L (5.0-15.0); BUN Blood Urea Nitrogen 31.0 mg/dL (7-18); Glucose Level 128.0 mg/dL (74-106); Magnesium 2.3 mg/dL (1.6-2.4); Potassium 4.6 mEq/L (3.5-5.1)
[2025-01-10 08:04] LABS: Absolute Lymphocytes (CBC) 0.7 K/uL (0.7-4.9); Hematocrit 24.2 % (36.0-45.0); Hemoglobin 7.9 g/dL (12.0-15.0); MCH 29.7 pg (27.0-35.0); MCHC 32.7 g/dL (32.0-36.0); MCV 90.9 fL (80-100); MPV 9.1 fL (7.6-11.3); Nucleated RBC Absolute Count 0.0 (0-0); Nucleated Red Blood Cells % 0.0 % (0-0); RBC Red Blood Cell Count 2.67 M/uL (3.86-4.86); White Blood Count 6.60 thou/uL (4.3-10.9)
[2025-01-10 08:23] LABS: PT Prothrombin Time 16.4 SECONDS (10-13.0); Protime INR 1.47
--- NOTE | 2025-01-10 09:40 | P.PN ---
Date of Service: 01/10/25 Subjective: Doing okay, feels tired/run down Denies constipation currently on O2. Denies using oxygen at home HR mostly in 50s overnight/today Physical Exam: GEN: Alert, oriented CV: Sinus Bradycardia, systolic murmur Pulm:Nonlabored respirations on 2L NC, clear bilaterally ABD: soft, nontender, nondistended Neuro: Normal speech, normal affect Problem List: Subtherapeutic INR Mechanical aortic valve-on warfarin Atypical Chest pain Bradycardia Chronic diastolic CHF A-fib on chronic anticoagulation IRVING Abdominal pain Chronic diastolic CHF Bradycardia Subtherapeutic INR Mechanical aortic valve-on warfarin Coumadin increased to 2mg 01/09 Continue to bridge coumadin with heparin until INR improves INR goal 2-3 Daily labs. INR 1.4-1.5 Atypical Chest pain Bradycardia Chronic diastolic CHF A-fib on chronic anticoagulation on admission, presents with chest pain associated with shortness of breath. CT chest/abd/pelvis: No acute findings. Partial improvement in density of ovoid right lower lobe groundglass opacity, may relate to improving pneumonitis. 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 CT head/spine negative. CXR shows resolving pulm edema Troponins negative. Monitor on telemetry EKG without ischemic changes Cardiology consulted Atypical chest pain, no further work up per cardio Abdominal pain Her abdominal pain is better controlled with Levsin Case discussed with GI. Concern for chronic mesenteric ischemia. She is high risk due to her history of atherosclerotic disease Patient will need to follow-up outpatient with GI for endoscopic evaluation IRVING Cr peaked at 1.51 01/08 Continue to monitor renal function Improving off IVF VTE: Home coumadin Code: Full Dispo: Home pending INR improves / therapeutic Time Spent Managing Pts Care (In Minutes): 40
[2025-01-11 08:39] LABS: Absolute Lymphocytes (CBC) 0.7 K/uL (0.7-4.9); Hematocrit 24.5 % (36.0-45.0); Hemoglobin 8.0 g/dL (12.0-15.0); MCH 29.9 pg (27.0-35.0); MCHC 32.5 g/dL (32.0-36.0); MCV 92.2 fL (80-100); MPV 9.0 fL (7.6-11.3); Nucleated RBC Absolute Count 0.0 (0-0); Nucleated Red Blood Cells % 0.1 % (0-0); RBC Red Blood Cell Count 2.66 M/uL (3.86-4.86); White Blood Count 8.00 thou/uL (4.3-10.9)
[2025-01-11 08:56] LABS: ALT/SGPT 26.0 U/L (13-56); AST/SGOT 23.0 U/L (15-37); Albumin 2.6 g/dL (3.4-5.0); Albumin/Globulin Ratio 0.7 (1.1-1.8); Alkaline Phosphatase 76.0 U/L (45-117); Anion Gap 8.4 mEq/L (5.0-15.0); BUN Blood Urea Nitrogen 25.0 mg/dL (7-18); Globulin 3.6 g/dL (2.3-3.5); Glucose Level 110.0 mg/dL (74-106); Potassium 4.4 mEq/L (3.5-5.1)
[2025-01-11 09:03] LABS: PT Prothrombin Time 16.8 SECONDS (10-13.0); Protime INR 1.5
--- NOTE | 2025-01-11 09:11 | P.PN ---
Date of Service: 01/11/25 Subjective: reports some mild epistaxis with some blood clots this morning otherwise no new issues vitals stable Physical Exam: GEN: Alert, oriented CV: Sinus Bradycardia, systolic murmur Pulm:Nonlabored respirations on 2L NC, clear bilaterally ABD: soft, nontender, nondistended Neuro: Normal speech, normal affect Problem List: Subtherapeutic INR Mechanical aortic valve-on warfarin Atypical Chest pain Bradycardia Chronic diastolic CHF A-fib on chronic anticoagulation IRVING Abdominal pain Chronic diastolic CHF Bradycardia Subtherapeutic INR Mechanical aortic valve-on warfarin Coumadin increased to 2mg 01/09 Continue to bridge coumadin with heparin until INR improves INR goal 2-3 Daily labs. INR 1.4-1.5 Atypical Chest pain Bradycardia Chronic diastolic CHF A-fib on chronic anticoagulation on admission, presents with chest pain associated with shortness of breath. CT chest/abd/pelvis: No acute findings. Partial improvement in density of ovoid right lower lobe groundglass opacity, may relate to improving pneumonitis. 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 CT head/spine negative. CXR shows resolving pulm edema Troponins negative. Monitor on telemetry EKG without ischemic changes Cardiology consulted Atypical chest pain, no further work up per cardio Wean oxygen as tolerated humidify oxygen to help with minor epistaxis - no active bleed - just blood tinged when blowing nose Abdominal pain Her abdominal pain is better controlled with Levsin Case discussed with GI. Concern for chronic mesenteric ischemia. She is high risk due to her history of atherosclerotic disease Patient will need to follow-up outpatient with GI for endoscopic evaluation IRVING Cr peaked at 1.51 01/08 Continue to monitor renal function Improving off IVF VTE: coumadin with heparin bridge Code: Full Dispo: Home pending INR improves / therapeutic Time Spent Managing Pts Care (In Minutes): 40
[2025-01-12 05:02] LABS: PT Prothrombin Time 17.6 SECONDS (10-13.0); Protime INR 1.58
[2025-01-12 05:03] LABS: Hematocrit 24.1 % (36.0-45.0); Hemoglobin 7.8 g/dL (12.0-15.0); MCH 29.9 pg (27.0-35.0); MCHC 32.6 g/dL (32.0-36.0); MCV 91.9 fL (80-100); MPV 9.2 fL (7.6-11.3); RBC Red Blood Cell Count 2.62 M/uL (3.86-4.86); White Blood Count 8.60 thou/uL (4.3-10.9)
[2025-01-12 05:25] LABS: Anion Gap 7.2 mEq/L (5.0-15.0); BUN Blood Urea Nitrogen 22.0 mg/dL (7-18); Glucose Level 110.0 mg/dL (74-106); Magnesium 2.1 mg/dL (1.6-2.4); Potassium 4.2 mEq/L (3.5-5.1)
[2025-01-12] MEDS: HYDROMORPHONE HCL 1 MG/ML INJ IV PRN (18:16)
[2025-01-12] MEDS: WARFARIN SODIUM 1 MG TAB PO SCH (18:40)
--- NOTE | 2025-01-12 18:43 | P.PN ---
Subjective Date of Service: 01/12/25 Chief Complaint: Chest PAIN Patient reports intermittent pain. She is maintained on 2 L oxygen by nasal cannula. She stated she is able to ambulate to and from the bathroom. Physical Examination - Vital Signs Temperature: 98.1 F Blood Pressure: 131/59 Pulse: 56 Respirations: 16 Pulse Ox (%): 96 - Studies Medications List Reviewed: Yes Assessment And Plan - Plan Physical Exam: GEN: Alert, oriented CV: Sinus Bradycardia, systolic murmur Pulm: clear bilaterally, adequate breath sounds bilaterally. ABD: soft, nontender, nondistended Neuro: Normal speech, normal affect Problem List: Subtherapeutic INR Mechanical aortic valve-on warfarin Atypical Chest pain Bradycardia Chronic diastolic CHF A-fib on chronic anticoagulation IRVING Abdominal pain Chronic diastolic CHF Bradycardia Acute respiratory failure with hypoxia Plan: Subtherapeutic INR Mechanical aortic valve-on warfarin Coumadin increased to 3mg on 01/12 Continue to bridge coumadin with heparin until INR improves INR goal 2-3 Atypical Chest pain Bradycardia Chronic diastolic CHF Acute respiratory failure with hypoxia A-fib on chronic anticoagulation on admission, presents with chest pain associated with shortness of breath. CT chest/abd/pelvis: No acute findings. Partial improvement in density of ovoid right lower lobe groundglass opacity, may relate to improving pneumonitis. 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 CT head/spine negative. CXR shows resolving pulm edema Troponins negative. Monitor on telemetry EKG without ischemic changes Cardiology input appreciated Atypical chest pain, no further work up per cardio Wean oxygen as tolerated Abdominal pain Her abdominal pain is better controlled with Levsin Case discussed with GI. Concern for chronic mesenteric ischemia. She is high risk due to her history of atherosclerotic disease Patient will need to follow-up outpatient with GI for endoscopic evaluation IRVING Serum creatinine level improved off IVF Continue to monitor renal function Continue to monitor renal function. VTE: coumadin with heparin bridge Code: Full Dispo: Home.
[2025-01-12] MEDS: WARFARIN SODIUM 1 MG TAB PO ONE (21:29)
[2025-01-13 04:57] LABS: Absolute Lymphocytes (CBC) 0.8 K/uL (0.7-4.9); Hematocrit 22.7 % (36.0-45.0); Hemoglobin 7.5 g/dL (12.0-15.0); MCH 30.2 pg (27.0-35.0); MCHC 32.9 g/dL (32.0-36.0); MCV 92.0 fL (80-100); MPV 8.6 fL (7.6-11.3); Nucleated RBC Absolute Count 0.0 (0-0); Nucleated Red Blood Cells % 0.5 % (0-0); RBC Red Blood Cell Count 2.47 M/uL (3.86-4.86); White Blood Count 7.60 thou/uL (4.3-10.9)
[2025-01-13 05:04] LABS: PT Prothrombin Time 16.9 SECONDS (10-13.0); PTT, Activated Partial Thromb 47.6 SECONDS (27.2-37.4); Protime INR 1.51
[2025-01-13 05:12] LABS: Anion Gap 9.2 mEq/L (5.0-15.0); BUN Blood Urea Nitrogen 22.0 mg/dL (7-18); Glucose Level 125.0 mg/dL (74-106); Potassium 4.2 mEq/L (3.5-5.1)
[2025-01-13] MEDS: ENOXAPARIN 60 MG/0.6 ML SQ SCH (09:50)
[2025-01-13] MEDS: WARFARIN SODIUM 3 MG TAB PO SCH (17:49)
--- NOTE | 2025-01-13 18:58 | P.PN ---
Subjective Date of Service: 01/13/25 Chief Complaint: Chest PAIN Patient reports generalized body pains She is maintained on 2 L oxygen by nasal cannula. No issues overnight. Physical Examination - Vital Signs Temperature: 98.1 F Blood Pressure: 123/70 Pulse: 65 Respirations: 18 Pulse Ox (%): 98 - Studies Medications List Reviewed: Yes Assessment And Plan - Plan Physical Exam: GEN: Alert, oriented CV: Regular rhythm, normal rate, systolic murmur Pulm: clear bilaterally, adequate breath sounds bilaterally. ABD: soft, nontender, nondistended Neuro: Normal speech, normal affect Problem List: Subtherapeutic INR Mechanical aortic valve-on warfarin Atypical Chest pain Bradycardia Chronic diastolic CHF A-fib on chronic anticoagulation IRVING Abdominal pain Chronic diastolic CHF Bradycardia Acute respiratory failure with hypoxia Plan: Subtherapeutic INR Mechanical aortic valve-on warfarin Coumadin increased to 3mg on 01/12 Continue Coumadin 3 mg daily and monitor PT/INR Heparin drip changed to Lovenox INR goal 2-3 Plan is to discharge patient with Lovenox bridge until PTT INR becomes therapeutic at home. Patient stated she follows up at the [facility] at [place] for PT/INR check twice a week. Atypical Chest pain Bradycardia Chronic diastolic CHF Acute respiratory failure with hypoxia A-fib on chronic anticoagulation on admission, presents with chest pain associated with shortness of breath. CT chest/abd/pelvis: No acute findings. Partial improvement in density of ovoid right lower lobe groundglass opacity, may relate to improving pneumonitis. 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 CT head/spine negative. CXR shows resolving pulm edema Troponins negative. Monitor on telemetry EKG without ischemic changes Cardiology input appreciated Atypical chest pain, no further work up per cardio Wean oxygen as tolerated Abdominal pain Her abdominal pain is better controlled with Levsin Case discussed with GI. Concern for chronic mesenteric ischemia. She is high risk due to her history of atherosclerotic disease Patient will need to follow-up outpatient with GI for endoscopic evaluation IRVING-resolved Status post IVF IRVING resolved Continue to monitor renal function. Chronic anemia Drop in hemoglobin from 8.3 to 7.5 Check CBC in a.m. to follow Patient currently on therapeutic Lovenox instead of heparin drip Plan is to discharge home with Lovenox bridge for Coumadin anticoagulation if hemoglobin remains stable on the therapeutic Lovenox. VTE: coumadin with therapeutic Lovenox bridge Code: Full Dispo: Home.
[2025-01-14 08:30] LABS: Hematocrit 23.2 % (36.0-45.0); Hemoglobin 7.6 g/dL (12.0-15.0); MCH 30.2 pg (27.0-35.0); MCHC 32.8 g/dL (32.0-36.0); MCV 92.2 fL (80-100); MPV 8.4 fL (7.6-11.3); RBC Red Blood Cell Count 2.52 M/uL (3.86-4.86); White Blood Count 7.40 thou/uL (4.3-10.9)
[2025-01-14 08:31] LABS: Absolute Lymphocytes (CBC) 0.8 K/uL (0.7-4.9); Nucleated RBC Absolute Count 0.0 (0-0); Nucleated Red Blood Cells % 0.1 % (0-0)
--- NOTE | 2025-01-14 10:49 | P.DS ---
Admission Date: 01/07/25 Discharge Date: 01/14/25 Disposition: DC HOME/HOME HEALTH CARE Discharge Condition: FAIR Reason for Admission: Chest PAIN Brief History of Present Illness: Patient with a history of mechanical heart valve, A-fib, CKD, COPD, CHF, hypertension, hyperlipidemia presented to the ED with complaint of shortness of breath with associated with some left-sided chest pain. No fever. She was assessed in the ER, initial troponin negative, EKG showed no ischemic changes, chest x-ray showed no acute disease.patient was admitted for further management of CHF exacerbation and to rule out ACS due to the chest pain. Hospital Course: Problem List: Subtherapeutic INR Mechanical aortic valve-on warfarin Atypical Chest pain Bradycardia Chronic diastolic CHF A-fib on chronic anticoagulation IRVING Abdominal pain Chronic diastolic CHF Bradycardia Acute respiratory failure with hypoxia Subtherapeutic INR Mechanical aortic valve-on warfarin Patient PT/INR was subtherapeutic. Coumadin increased titrated to on 01/12, INR now 1.86. Patient medical record reviewed and noted she was taking up to 2.5 mg Coumadin. She was initially bridged with heparin drip which was later changed to therapeutic subcutaneous Lovenox Patient was discharged with Coumadin 2.5 mg daily with therapeutic Lovenox bridge until PT/INR become therapeutic Patient stated she follows up at the rn traveling office at [facility] for PT/INR check twice a week. Patient was advised to follow-up with her rn traveling on Saturday01/18/2025 for INR check and if INR goal is reached to stop the Lovenox bridge Atypical Chest pain Bradycardia Chronic diastolic CHF Acute respiratory failure with hypoxia A-fib on chronic anticoagulation Chronic atrial fibrillation on admission, presents with chest pain associated with shortness of breath. CT chest/abd/pelvis: No acute findings. Partial improvement in density of ovoid right lower lobe groundglass opacity, may relate to improving pneumonitis. 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 CT head/spine negative. CXR shows resolving pulm edema Troponins trended negative. EKG without ischemic changes Patient seen by cardiology and recommended no further cardiac workup. Atypical chest pain, no further work up per cardio Oxygen weaned off. Her oxygen saturation is 93% on room air. Amiodarone resumed on discharge. Abdominal pain Her abdominal pain is better controlled with Levsin Resolved. IRVING-resolved Status post IVF IRVING resolved Continue to monitor renal function. Chronic anemia Drop in hemoglobin from 8.3 to 7.5 and remained stable around 7 with anticoagulation with warfarin and subcutaneous Lovenox Vital Signs/Physical Exam: Temp Pulse Resp BP Pulse Ox 97.9 F 82 18 118/62 89 L 01/14/25 08:00 01/14/25 09:35 01/14/25 09:32 01/14/25 09:35 01/14/25 09:32 General: Alert, In no apparent distress, Oriented x3, Other (Cachectic) HEENT: Mucous membr. moist/pink, Sclerae nonicteric Neck: Supple, JVD not distended Respiratory: Clear to auscultation bilaterally Cardiovascular: No edema, Normal S1 S2, Irregular heart rate/rhythm Gastrointestinal: Normal bowel sounds, Soft and benign, Non-distended, No tenderness Musculoskeletal: No swelling Integumentary: No rashes, No cyanosis Neurological: Normal speech, Normal strength at 5/5 x4 extr, Cranial nerves 3-12 intact Laboratory Data at Discharge: WBC 7.40 thou/uL (4.3-10.9) 01/14/25 08:23 Hgb 7.6 g/dL (12.0-15.0) L 01/14/25 08:23 Hct 23.2 % (36.0-45.0) L 01/14/25 08:23 Plt Count 234 thou/uL (152-406) 01/14/25 08:23 PT Cancelled 01/13/25 Unknown INR Cancelled 01/13/25 Unknown APTT Cancelled 01/13/25 09:15 Sodium Cancelled 01/13/25 Unknown Potassium Cancelled 01/13/25 Unknown BUN Cancelled 01/13/25 Unknown Creatinine Cancelled 01/13/25 Unknown Glucose Cancelled 01/13/25 Unknown Phosphorus 5.0 mg/dL (2.5-4.9) H 01/08/25 04:30 Magnesium 2.1 mg/dL (1.6-2.4) 01/12/25 04:44 Total Bilirubin 0.4 mg/dL (0.2-1.0) 01/11/25 08:27 AST 23 U/L (15-37) 01/11/25 08:27 ALT 26 U/L (13-56) 01/11/25 08:27 Alkaline Phosphatase 76 U/L (45-117) 01/11/25 08:27 Home Medications: Atorvastatin Calcium 80 mg PO BEDTIME 12/25/21 Gabapentin 300 mg PO TID 12/25/21 Zolpidem Tartrate [Ambien*] 10 mg PO BEDTIME 12/25/21 Ezetimibe [Zetia*] 10 mg PO DAILY 08/21/22 Amiodarone HCl [Cordarone*] 200 mg PO DAILY 02/20/23 Metoprolol Tartrate [Lopressor*] 37.5 mg PO BID 08/22/24 Spironolactone [Aldactone*] 25 mg PO DAILY #30 tab 01/04/25 Enoxaparin Sodium [Lovenox 60 MG INJ*] 50 mg SQ Q12HR 5 Days #10 syr 01/14/25 Hyoscyamine Sulfate [Levsin TAB*] 0.125 mg PO QID PRN #20 tab 01/14/25 Warfarin Sodium 2.5 mg PO DAILY #30 tab 01/14/25 New Medications: Enoxaparin Sodium [Lovenox 60 MG INJ*] 50 mg SQ Q12HR 5 Days #10 syr Hyoscyamine Sulfate [Levsin TAB*] 0.125 mg PO QID PRN #20 tab PRN Reason: Abdominal Cramps Warfarin Sodium 2.5 mg PO DAILY #30 tab Physician Discharge Instructions: Patient with a history of mechanical heart valve, A-fib, CKD, COPD, CHF, hypertension, hyperlipidemia presented to the ED with complaint of shortness of breath with associated with some left-sided chest pain. No fever. She was assessed in the ER, initial troponin negative, EKG showed no ischemic changes, chest x-ray showed no acute disease.patient was admitted for further management of CHF exacerbation and to rule out ACS due to the chest pain. Problem List: Subtherapeutic INR Mechanical aortic valve-on warfarin Atypical Chest pain Bradycardia Chronic diastolic CHF A-fib on chronic anticoagulation IRVING Abdominal pain Chronic diastolic CHF Bradycardia Acute respiratory failure with hypoxia Subtherapeutic INR Mechanical aortic valve-on warfarin Patient PT/INR was subtherapeutic. Coumadin increased titrated to on 01/12, INR now 1.86. Patient medical record reviewed and noted she was taking up to 2.5 mg Coumadin. She was initially bridged with heparin drip which was later changed to therapeutic subcutaneous Lovenox Patient was discharged with Coumadin 2.5 mg daily with therapeutic Lovenox bridge until PT/INR become therapeutic Patient stated she follows up at the rn traveling office at [facility] for PT/INR check twice a week. Patient was advised to follow-up with her rn traveling on Saturday01/18/2025 for INR check and if INR goal is reached to stop the Lovenox bridge Atypical Chest pain Bradycardia Chronic diastolic CHF Acute respiratory failure with hypoxia A-fib on chronic anticoagulation Chronic atrial fibrillation on admission, presents with chest pain associated with shortness of breath. CT chest/abd/pelvis: No acute findings. Partial improvement in density of ovoid right lower lobe groundglass opacity, may relate to improving pneumonitis. 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 CT head/spine negative. CXR shows resolving pulm edema Troponins trended negative. EKG without ischemic changes Patient seen by cardiology and recommended no further cardiac workup. Atypical chest pain, no further work up per cardio Oxygen weaned off. Amiodarone resumed on discharge. Abdominal pain Her abdominal pain is better controlled with Levsin Resolved. IRVING-resolved Status post IVF IRVING resolved Continue to monitor renal function. Chronic anemia Drop in hemoglobin from 8.3 to 7.5 and remained stable around 7 with anticoagulation with warfarin and subcutaneous Lovenox Please check your PT/INR on Saturday04/20/2024 Diet: AHA Activity: Fall precautions Followup: Shar Roa MD [Primary Care Provider] - 1 Week Saurabh Gonzalez MD [ASSOCIATE-ACTIVE - CAN ADMIT] - 1-2 Weeks (Chronic intermittent abdominal pain)
[2025-01-14 11:13] LABS: PT Prothrombin Time 20.6 SECONDS (10-13.0); Protime INR 1.86
[2025-01-14 12:42] VITALS: BP 138/71; TEMP 97.5
[2025-01-14 12:49] VITALS: O2SAT 93
== END 2025-01-14 14:44 | disposition home or self-care (01) | DRG 291 ==
LOC: ER 17:21 → ERHOLD 20:09 → 4TH 01-06 14:29 → OBSVTOIN 01-07 07:07
PROVIDERS: ADMIT Family Medicine; ATTEND Internal Medicine
PROC: 02HV33Z Insertion of Infusion Device into Superior Vena Cava, Percutaneous Approach (ICD-10-PCS; principal; 2025-01-09)
DX: I11.0 Hypertensive heart disease with heart failure (principal); I50.33 Acute on chronic diastolic (congestive) heart failure; J96.01 Acute respiratory failure with hypoxia; R64 Cachexia; Z68.1 Body mass index [BMI] 19.9 or less, adult; N17.9 Acute kidney failure, unspecified; I48.20 Chronic atrial fibrillation, unspecified; I77.810 Thoracic aortic ectasia; J98.4 Other disorders of lung; M43.9 Deforming dorsopathy, unspecified; J44.9 Chronic obstructive pulmonary disease, unspecified; E78.00 Pure hypercholesterolemia, unspecified; S09.90XA Unspecified injury of head, initial encounter; K21.9 Gastro-esophageal reflux disease without esophagitis; D63.8 Anemia in other chronic diseases classified elsewhere; F17.200 Nicotine dependence, unspecified, uncomplicated; Z95.2 Presence of prosthetic heart valve; Z79.01 Long term (current) use of anticoagulants; Z96.641 Presence of right artificial hip joint; Z79.899 Other long term (current) drug therapy
CPT/HCPCS: 36415; 70450; 71045; 71260; 72125; 74177; 80048; 80053; 80076; 83605; 83735; 83880; 84100; 84484; 85025; 85027; 85610; 85730; 93005; 96374; 99285; G0378; J1171; J1644; J1650; J1938; J2405; J7040; Q9967

== ENCOUNTER 2025-02-05 21:22 | Emergency (ER) | payer OTHER ==
[2025-02-05 23:09] LABS: Absolute Lymphocytes (CBC) 1.0 K/uL (0.7-4.9); Hematocrit 28.8 % (36.0-45.0); Hemoglobin 9.2 g/dL (12.0-15.0); MCH 28.5 pg (27.0-35.0); MCHC 32.0 g/dL (32.0-36.0); MCV 89.3 fL (80-100); MPV 8.5 fL (7.6-11.3); Nucleated RBC Absolute Count 0.0 (0-0); Nucleated Red Blood Cells % 0.2 % (0-0); RBC Red Blood Cell Count 3.23 M/uL (3.86-4.86); White Blood Count 2.60 thou/uL (4.3-10.9)
[2025-02-05] MEDS ORDERED: KETOROLAC 30 MG/ML INJ ONE (23:22)
[2025-02-05 23:23] LABS: Anion Gap 8.2 mEq/L (5.0-15.0); BUN Blood Urea Nitrogen 9.0 mg/dL (7-18); Glucose Level 96.0 mg/dL (74-106)
[2025-02-05 23:24] LABS: Potassium 4.2 mEq/L (3.5-5.1)
--- NOTE | 2025-02-05 23:32 | RAD REPORT ---
EXAM: CT Chest, Abdomen and Pelvis Without Intravenous Contrast CLINICAL HISTORY: The patient is 69 years old and is Female; fall TECHNIQUE: Axial computed tomography images of the chest, abdomen and pelvis without intravenous contrast. S agittal and coronal reformatted images were created and reviewed. This CT exam was performed using one or more of the following dose reduction techniques: automated exposure control, adjustmen t of the mA and/or kV according to patient size, and/or use of iterative reconstruction technique. COMPARISON: No relevant prior studies available. FINDINGS: CHEST: LUNGS AND PLEURAL SPACES: Minimal dependent densities in the lung bases are present. The lungs are otherwise well-inflated and clear. There is no effusion or pneumothorax. The tracheobronchial tree is patent. No mass. HEART: The heart is enlarged. Prosthetic aortic valve is noted. ABDOMEN: LIVER: Homogeneous without focal mass. GALLBLADDER AND BILE DUCTS: Calcified gallstones are present within the gallbladder. There is no ductal dilatation. PANCREAS: Fatty atrophy of the pancreas is present. No ductal dilation. SPLEEN: Unremarkable. ADRENALS: Unremarkable. No mass. KIDNEYS AND URETERS: No obstructing stones. No hydronephrosis. No perinephric fluid. STOMACH AND BOWEL: The stomach is decompressed. The small bowel is normal in caliber. Stool is pr esent throughout the colon. Scattered colonic diverticula are noted without surrounding inflammation. PELVIS: APPENDIX: The appendix is normal in caliber without surrounding inflammation. BLADDER: The bladder is moderately distended. No stones. REPRODUCTIVE: Unremarkable as visualized. CHEST, ABDOMEN and PELVIS: INTRAPERITONEAL SPACE: Unremarkable. No significant fluid collection. No free air. BONES/JOINTS: A right hip prosthesis is present. The hardware is engaged without surrounding luce ncy. Evidence of median sternotomy is noted. There is no acute fracture of the visualized axial and appendicular skeleton. Chronic compression deformity of the superior endplate of L1 with mild/mod erate height loss and minimal retropulsion is noted. Chronic Schmorl's nodes at the superior endplate of T5 and T7 are also present. The vertebral body heights and alignment are otherwise mainta ined. SOFT TISSUES: The soft tissues are normal. VASCULATURE: Extensive atherosclerosis of the aorta specifically the thoracic aorta is noted. N o aortic aneurysm. LYMPH NODES: Unremarkable. No enlarged lymph nodes. IMPRESSION: 1. No evidence of solid organ injury or traumatic bony findings on this noncontrast CT of the chest , abdomen, pelvis. 2. Chronic findings as detailed above. Electronically signed by: Zahira Hannah MD 02/05/2025 11:25 PM CDT RP Due to temporary technical issues with the PACS/[employer] reporting system, reports are being purvi d by the in-house radiologist without review as a courtesy to ensure prompt reporting the interpreting radiologist is fully responsible for the content of the report. Transcribed Date/Time: 02/05/2025 11:31 PM
--- NOTE | 2025-02-05 23:32 | RAD REPORT ---
EXAMINATION: Head C Spine Mpr Wo Con CLINICAL HISTORY: FALL COMPARISON: None TECHNIQUE: Noncontrast axial images of the head and cervical spine were obtained. Sagittal and espinosa l reformatted images obtained. FINDINGS: CT cervical spine: Degenerative disc disease is prominent from C4 through C7. No fracture or acute ma lalignment. CT head: Mild chronic maxillary mucosal thickening. Otherwise, no significant sinus or mastoid diseas e. No apparent skull fracture. The cerebellar tonsils are in the appropriate position. The pituitary gland is normal size. The ventricles are not enlarged. Brain volume is normal for age. No significant small vessel changes. No intracranial hemorrhage or ma ss lesion. The orbits are unremarkable. IMPRESSION: 1: No acute intracranial finding. Normal CT of the head for age. 2: Degenerative changes of the cervical spine without evidence of acute traumatic injury. RADIATION DOSE REDUCTION: This exam was performed according to our departmental dose-optimization pro gram which includes automated exposure control, adjustment of the mA and/or kV according to patient size and/or use of iterative reconstruction technique. Electronically signed by: Magdi Eagle MD 02/05/2025 11:24 PM CDT RP Due to temporary technical issues with the PACS/[employer] reporting system, reports are being purvi d by the in-house radiologist without review as a courtesy to ensure prompt reporting the interpreting radiologist is fully responsible for the content of the report. Transcribed Date/Time: 02/05/2025 11:31 PM
[2025-02-05] MEDS ORDERED: TRAMADOL HCL 50 MG TAB ONE (23:54)
[2025-02-05] MEDS ORDERED: ACETAMINOPHEN 325 MG TABLET ONE (23:55)
--- NOTE | 2025-02-06 00:05 | ER ---
Nurse's Notes [facility] Name: Michelle Saavedra Age: 69 yrs Sex: Female : 1955 Arrival Date: 02/05/2025 Time: 21:22 Bed 11 Private MD: Diagnosis: Fall on same level from slipping, tripping and stumbling with subsequent striking against object;Contusion of thorax-left side Presentation: 02/05 21:39 Chief complaint: Patient states: patient fell wheile putting on shorts at home, hitting kj2 her right ribcage. Coronavirus screen: Client denies travel out of the [place] in the last 14 days. Ebola Screen: No symptoms or risks identified at this time. Initial Sepsis Screen: Does the patient meet any 2 criteria? No. Patient's initial sepsis screen is negative. Does the patient have a suspected source of infection? No. Patient's initial sepsis screen is negative. Risk Assessment: Do you want to hurt yourself or someone else? Patient reports no desire to harm self or others. Onset of symptoms was February 05, 2025. 21:39 Method Of Arrival: Ambulatory kj2 21:39 Acuity: JAKUB 3 kj2 Triage Assessment: 21:44 General: see nurse's assessment. kj2 Historical: - Allergies: 21:42 No Known Allergies; kj2 - PMHx: 21:43 Atrial fibrillation; COPD; Hypercholesterolemia; Hypertensive disorder; mechanical kj2 valve; - PSHx: 21:43 Hip surgery; kj2 - Immunization history:: Adult Immunizations unknown. - Infectious Disease History:: Denies. - Social history:: Smoking status: unknown. Screenin:45 [facility] ED Fall Risk Assessment (Adult) History of falling in the last 3 months, kj2 including since admission Yes- single mechanical fall (1 pt) Confusion or Disorientation No (0 pts) Intoxicated or Sedated No (0 pts) Impaired Gait No (0 pts) Mobility Assist Device Used No (0 pt) Altered Elimination No (0 pt) Score/Fall Risk Level 0 - 2 = Low Risk Maintained a safe environment, Hourly rounding (assess needs \T\ fall precautionary measures) done. Abuse screen: Denies threats or abuse. Denies injuries from another. Nutritional screening: No deficits noted. Tuberculosis screening: No symptoms or risk factors identified. Assessment: 21:41 Pain: Complains of pain in right ribcage Pain currently is 8 out of 10 on a pain scale. kj2 Neuro: Level of Consciousness is awake, alert, obeys commands, Oriented to person, place, time, situation. Cardiovascular: Patient's skin is warm and dry. Respiratory: Airway is patent Respiratory effort is even, unlabored. GI: No signs and/or symptoms were reported involving the gastrointestinal system. : No signs and/or symptoms were reported regarding the genitourinary system. 21:41 General: Appears uncomfortable, Behavior is cooperative, crying. kj2 22:50 Reassessment: Patient appears in no apparent distress at this time. kj2 02/06 00:05 Reassessment: Patient is alert, oriented x 3, equal unlabored respirations, skin br2 warm/dry/pink. Patient states symptoms have improved. Vital Signs: 02/05 21:39 BP 184 / 82; Pulse 66; Resp 18; Temp 97.7; Pulse Ox 97% on R/A; kj2 22:50 BP 140 / 62; Pulse 64; Resp 18; Pulse Ox 100% on R/A; kj2 23:25 BP 187 / 76; Pulse 66; Resp 20; Pulse Ox 100% ; kj2 02/06 00:28 BP 160 / 70; Pulse 67; Resp 18 S; Pulse Ox 100% on R/A; Pain 5/10; br2 02/06 00:28 Pain Scale: Adult br2 ED Course: 02/05 21:24 Patient arrived in ED. im 21:32 Gab Pollock PA-C is PHCP. cp 21:32 Geronimo Vazquez DO is Attending Physician. cp 21:39 Sonia Cochran, PHILLIP is Primary Nurse. kj2 21:41 Triage completed. kj2 21:45 Patient has correct armband on for positive identification. Call light in reach. Side kj2 rails up X 1. Adult w/ patient. Provided Education on: call light. 22:33 Chest Abd Pelvis Wo Con In Process Unspecified. EDMS 22:33 Head C Spine Mpr Wo Con In Process Unspecified. EDMS 22:50 Missed attempt(s): 22 gauge in left antecubital area. kj2 22:55 Missed attempt(s): 20 gauge in left upper arm. kj2 23:28 Inserted saline lock: 22 gauge in right forearm, using aseptic technique. Blood br2 collected. Flushed with 10 mL NS. 23:35 No provider procedures requiring assistance completed. kj2 02/06 00:05 Report given to Joan Oconnor RN. kj2 00:05 Report received from PHILLIP NIEVES. br2 00:28 IV discontinued, intact, bleeding controlled. br2 Administered Medications: 02/05 23:35 Drug: Ketorolac IVP 15 mg IVP once Route: IVP; Site: right forearm; kj2 02/06 00:03 Follow up: Response: No adverse reaction kj2 00:13 Drug: Acetaminophen PO 650 mg PO once Route: PO; kj2 00:28 Follow up: Response: Medication administered at discharge. br2 00:13 Drug: traMADol PO 50 mg PO once Route: PO; kj2 00:28 Follow up: Response: Medication administered at discharge. br2 Medication: 02/05 23:36 VIS not applicable for this client. kj2 Outcome: 02/06 00:05 Discharge ordered by . carlos 00:28 Discharged to home via wheelchair, br2 00:28 Condition: improved 00:28 Discharge instructions given to patient, Instructed on discharge instructions, Demonstrated understanding of instructions, follow-up care, medications, Prescriptions given X 1, 00:28 Patient left the ED. br2 Signatures: Dispatcher [employer] EDMS Gab Pollock PA-C PA-C cp Mendoza, Itzel im Riddle, Belinda, RN RN br2 Sonia Cochran RN RN kj2 Corrections: (The following items were deleted from the chart) 02/05 21:44 21:41 General: see triage assessment. kj2 kj2 02/06 00:45 00:44 Patient left the ED. br2 br2
--- NOTE | 2025-02-06 00:05 | EDPHYS ---
Physician Documentation [facility] Name: Michelle Saavedra Age: 69 yrs Sex: Female : 1955 Arrival Date: 02/05/2025 Time: 21:22 Bed 11 Private MD: ED Physician Geronimo Vazquez HPI: 02/05 22:25 This 69 yrs old Female presents to ER via Ambulatory with complaints of Pain cp All Over. 22:25 The patient or guardian reports chest pain that is located primarily in the left cp lateral chest wall and left flank. 22:25 Onset: today, after reported fall at home. Severity of pain: in the emergency cp department the pain is unchanged despite home interventions. Patient somnolent requiring sternal rub to awaken upon initial presentation. Reports losing balance and falling onto left side striking left rib area. Historical: - Allergies: 21:42 No Known Allergies; kj2 - PMHx: 21:43 Atrial fibrillation; COPD; Hypercholesterolemia; Hypertensive disorder; mechanical kj2 valve; - PSHx: 21:43 Hip surgery; kj2 - Immunization history:: Adult Immunizations unknown. - Infectious Disease History:: Denies. - Social history:: Smoking status: unknown. ROS: 22:30 Constitutional: Negative for fever, cp 22:30 Cardiovascular: Positive for chest pain, of the left lateral side chest, cp 22:30 Back: Positive for flank pain, on the left, 22:30 All other systems are negative, Exam: 22:33 Constitutional: The patient appears in no acute distress, non-diaphoretic, non-toxic, cp well developed, well nourished, unkempt, 22:33 Head/Face: Normocephalic, atraumatic. cp 22:33 Neck: C-spine: vertebral tenderness, that is mild, appreciated at C5 and C6, crepitus, is not appreciated, 22:33 Chest/axilla: Inspection: normal, Palpation: crepitus, is not appreciated, tenderness, that is moderate, of the left lateral lower posterior chest and left lateral lower anterior chest, 22:33 Cardiovascular: Rate: normal, Rhythm: regular, Edema: is not appreciated, JVD: is not appreciated, 22:33 Respiratory: the patient does not display signs of respiratory distress, Respirations: normal, no use of accessory muscles, no retractions, Breath sounds: are clear throughout, no decreased breath sounds, no stridor, no wheezing, 22:33 Abdomen/GI: Inspection: abdomen appears normal, Bowel sounds: active, all quadrants, Palpation: soft, in all quadrants, moderate abdominal tenderness, in the posterior aspect of left lateral abdomen and anterior aspect of left lateral abdomen, rebound tenderness, is not appreciated, 22:33 Skin: exam left side chest and abdominal wall does not show swelling, ecchymosis. 22:33 Neuro: Orientation: to person, place, situation, Mentation: able to follow commands, somnolent, Motor: moves all fours, no focal deficits, 22:33 Special observations: complaints out of proportion to exam, Vital Signs: 21:39 BP 184 / 82; Pulse 66; Resp 18; Temp 97.7; Pulse Ox 97% on R/A; kj2 22:50 BP 140 / 62; Pulse 64; Resp 18; Pulse Ox 100% on R/A; kj2 23:25 BP 187 / 76; Pulse 66; Resp 20; Pulse Ox 100% ; kj2 02/06 00:28 BP 160 / 70; Pulse 67; Resp 18 S; Pulse Ox 100% on R/A; Pain 5/10; br2 02/06 00:28 Pain Scale: Adult br2 MDM: 02/05 21:32 Medical Screening Exam initiated cp 02/06 00:05 Data reviewed: vital signs, nurses notes, lab test result(s), radiologic studies, CT cp scan, and as a result, I will discharge patient. 00:05 Differential diagnosis: abnormal EKG, acute myocardial infarction, contusion, rib cp fracture, pneumothorax. I considered the following discharge prescriptions or medication management in the emergency department Medications were administered in the Emergency Department. See MAR. Care significantly affected by the following chronic conditions: Hypertension, Chronic Obstructive Pulmonary Disease. Counseling: I had a detailed discussion with the patient and/or guardian regarding the historical points, exam findings, and any diagnostic results supporting the discharge/admit diagnosis, lab results, radiology results, to return to the emergency department if symptoms worsen or persist or if there are any questions or concerns that arise at home. Response to treatment: the patient's symptoms have mildly improved after treatment, and as a result, I will discharge patient. ED course: reevaluation: patient alert and answering questions appropriately. no signs respiratory distress. 02/05 22:19 Order name: Basic Metabolic Panel; Complete Time: 23:29 cp 02/05 22:19 Order name: CBC with Diff; Complete Time: 23:29 cp 02/05 23:29 Interpretation: Normal except: WBC 2.60; RBC 3.23; HGB 9.2; HCT 28.8; RDW 17.5; MN% cp 12.9; BASO% 1.7; NEUT A 1.2. 02/05 22:19 Order name: Type And Screen; Complete Time: 00:18 cp 02/06 00:18 Interpretation: Reviewed. cp 02/05 22:24 Order name: Chest Abd Pelvis Wo Con EDMS 02/05 22:25 Order name: Head C Spine Mpr Wo Con EDMS 02/05 23:38 Interpretation: Report reviewed. cp 02/05 22:19 Order name: Labs collected and sent; Complete Time: 23:08 cp Administered Medications: 02/05 23:35 Drug: Ketorolac IVP 15 mg IVP once Route: IVP; Site: right forearm; kj2 02/06 00:03 Follow up: Response: No adverse reaction kj2 00:13 Drug: Acetaminophen PO 650 mg PO once Route: PO; kj2 00:28 Follow up: Response: Medication administered at discharge. br2 00:13 Drug: traMADol PO 50 mg PO once Route: PO; kj2 00:28 Follow up: Response: Medication administered at discharge. br2 Disposition: 19:03 Chart complete. cp Disposition Summary: 02/06/25 00:05 Discharge Ordered Notes: Location: Home cp Problem: new cp Symptoms: have improved cp Condition: Stable cp Diagnosis - Fall on same level from slipping, tripping and stumbling with subsequent striking cp against object - Contusion of thorax - left side cp Followup: cp - With: Private Physician - When: 2 - 3 days - Reason: Recheck today's complaints Discharge Instructions: - Discharge Summary Sheet cp - Rib Contusion cp - Fall Prevention in the Home, Adult cp Forms: - Medication Reconciliation Form cp - Antibiotic Education cp - Prescription Opioid Use cp - Patient Portal Instructions cp - Leadership Thank You Letter cp Prescriptions: - diclofenac sodium 1 % Topical gel - apply 1 gram TOPICAL route 2-3 times daily apply to painful area of chest wall cp as directed; 45 gram tube; Refills: 0, Product Selection Permitted Signatures: Dispatcher [employer] EDMS Gab Pollock PA-C PA-C cp Jordan, Krystal RN RN kj2 Anastasia Ritchie RN br2 Corrections: (The following items were deleted from the chart) 02/05 22:20 22:20 Head C Spine Cap Wo Con+CT.RAD.BRZ ordered. EDMS EDMS
[2025-02-06 07:31] VITALS: TEMP 97.7
[2025-02-06 07:37] VITALS: O2SAT 100
[2025-02-06 07:44] VITALS: BP 160/70
== END 2025-02-06 00:44 | disposition home or self-care (01) ==
LOC: ER 21:22
DX: S20.212A Contusion of left front wall of thorax, initial encounter (principal); W01.198A Fall on same level from slipping, tripping and stumbling with subsequent striking against other object, initial encounter
CPT/HCPCS: 85025; 80048; 36415; 86900; 86850; 86901; 70450; 71250; 72125; 74176; 96374; 99284; J1885

== ENCOUNTER 2025-02-07 14:19 | Emergency (ER) | payer OTHER ==
[2025-02-07] MEDS ORDERED: HYDROCODONE/APAP 10/325 TAB ONE (15:10)
--- NOTE | 2025-02-07 16:47 | RAD REPORT ---
EXAMINATION: Humerus Right CLINICAL INDICATION: Female, 69 years old. PAIN RIGHT COMPARISON: No prior exam. IMPRESSION: Right proximal humerus fracture which appears to only involve the greater tuberosity. The surgical ne ck appears intact. The remaining humerus is intact.
--- NOTE | 2025-02-07 16:49 | RAD REPORT ---
EXAMINATION: Femur Right VIEWS: Four views CLINICAL INDICATION: Female, 69 years old. PAIN RIGHT COMPARISON: 03/03/2023 IMPRESSION: Intact right hip arthroplasty. No acute fracture. No dislocation. Peripheral vascular calcifications.
[2025-02-07] MEDS ORDERED: MORPHINE 2 MG/ML SYR ONE (17:30)
--- NOTE | 2025-02-07 17:59 | ER ---
Nurse's Notes [facility] Name: Michelle Saavedra Age: 69 yrs Sex: Female : 1955 Arrival Date: 02/07/2025 Time: 14:19 Bed 13 Private MD: Diagnosis: Fracture of greater tuberosity of humerus;Contusion of right thigh Presentation: 02/07 14:28 Chief complaint: Patient states: Tripped over dog 30 min [employer]. Landed on R side. R ll1 shoulder pain, swelling, and limited ROM since. Coronavirus screen: Client denies travel out of the [place] in the last 14 days. At this time, the client does not indicate any symptoms associated with coronavirus-19. Ebola Screen: Patient denies travel to an Ebola-affected area in the 21 days before illness onset. Initial Sepsis Screen: Does the patient meet any 2 criteria? No. Patient's initial sepsis screen is negative. Does the patient have a suspected source of infection? No. Patient's initial sepsis screen is negative. Risk Assessment: Do you want to hurt yourself or someone else? Patient reports no desire to harm self or others. Onset of symptoms was February 07, 2025. 14:28 Method Of Arrival: Wheelchair ll1 14:28 Acuity: JAKUB 3 ll1 Triage Assessment: 14:28 General: Appears distressed, uncomfortable, unkempt, Behavior is calm, cooperative, ll1 appropriate for age. Pain: Complains of pain in R shoulder Quality of pain is described as aching. Musculoskeletal: Swelling present in R shoulder Reports pain in R shoulder. Injury Description: trip and fall over dog. Historical: - Allergies: 14:28 No Known Allergies; ll1 - PMHx: 14:28 Atrial fibrillation; COPD; Hypercholesterolemia; Hypertensive disorder; mechanical ll1 valve; - PSHx: 14:28 Hip surgery; ll1 - Immunization history:: Adult Immunizations up to date. - Infectious Disease History:: Denies. - Social history:: Smoking status: Patient denies any tobacco usage or history of. - Family history:: not pertinent. - Hospitalizations: : No recent hospitalization is reported. Screenin:19 [facility] ED Fall Risk Assessment (Adult) History of falling in the last 3 months, db including since admission Yes- single mechanical fall (1 pt) Confusion or Disorientation No (0 pts) Intoxicated or Sedated No (0 pts) Impaired Gait No (0 pts) Mobility Assist Device Used No (0 pt) Altered Elimination No (0 pt) Score/Fall Risk Level 0 - 2 = Low Risk Oriented to surroundings, Maintained a safe environment. Abuse screen: Denies threats or abuse. Denies injuries from another. Nutritional screening: No deficits noted. Tuberculosis screening: No symptoms or risk factors identified. Primary Survey: 16:20 NO uncontrolled hemorrhage observed. A: The client is awake and alert. The airway is db patent. Breathing/Chest: Spontaneous respiratory effort, equal unlabored respirations, breath sounds clear bilaterally, regular pattern, symmetrical chest rise and fall. Circulation: No external hemorrhage present. Regular and strong central pulse, skin warm/dry/normal color. Disability Client is alert. Exposure/Environment: A warming method has been applied: A warm blanket has been provided to the patient. Reassessment Alertness and Airway: Awake and alert. The airway is patent. Breathing: Spontaneous respiratory effort, equal unlabored respirations, breath sounds clear bilaterally, regular pattern with symmetrical chest rise and fall. Respiratory effort Spontaneous Respiratory pattern Regular Chest inspection Symmetrical Circulation: No external hemorrhage noted. Regular and strong central pulse, skin warm/dry/normal color. Assessment: 15:30 Reassessment: Patient appears in no apparent distress at this time. Patient and/or db family updated on plan of care and expected duration. Pain level reassessed. Patient is alert, oriented x 3, equal unlabored respirations, skin warm/dry/pink. General: Appears in no apparent distress. comfortable, Behavior is calm, cooperative. Pain: Complains of pain in right arm. Neuro: Level of Consciousness is awake, alert, obeys commands, Oriented to person, place, time, situation. Respiratory: Airway is patent Respiratory effort is even, unlabored, Respiratory pattern is regular, symmetrical. 16:19 Reassessment: Patient appears in no apparent distress at this time. Patient and/or db family updated on plan of care and expected duration. Pain level reassessed. Patient is alert, oriented x 3, equal unlabored respirations, skin warm/dry/pink. 17:54 Reassessment: Patient appears in no apparent distress at this time. Patient and/or db family updated on plan of care and expected duration. Pain level reassessed. Patient is alert, oriented x 3, equal unlabored respirations, skin warm/dry/pink. Musculoskeletal: Circulation, motion, and sensation intact. Capillary refill < 3 seconds, Range of motion: limited in right shoulder. 18:22 Reassessment: Patient appears in no apparent distress at this time. Patient and/or db family updated on plan of care and expected duration. Pain level reassessed. Patient is alert, oriented x 3, equal unlabored respirations, skin warm/dry/pink. Vital Signs: 14:28 BP 104 / 50; Pulse 73; Resp 17; Temp 97.6; Pulse Ox 97% ; Weight 48.99 kg; Height 5 ft. ll1 3 in. ; Pain 10/10; 16:03 BP 149 / 70; Pulse 68; Resp 18; Pulse Ox 95% on R/A; db 17:30 BP 170 / 68; Pulse 70; Resp 16; Pulse Ox 95% on R/A; db 18:11 BP 173 / 63; Pulse 71; Resp 16; Pulse Ox 95% ; db 14:28 Body Mass Index 19.13 (48.99 kg, 160.02 cm) ll1 14:28 Pain Scale: Adult ll1 [place] Coma Score: 16:03 Eye Response: spontaneous(4). Motor Response: obeys commands(6). Verbal Response: db oriented(5). Total: 15. Trauma Score (Adult): 16:03 Eye Response: spontaneous(1); Verbal Response: oriented(1); Motor Response: obeys db commands(2); Systolic BP: > 89 mm Hg(4); Respiratory Rate: 10 to 29 per min(4); Gray Score: 15; Trauma Score: 12 ED Course: 14:21 Patient arrived in ED. al6 14:22 Ean Dumont MD is Attending Physician. rn 14:28 Arm band placed on. ll1 14:30 Triage completed. ll1 14:58 Patient placed in an exam room, on a stretcher. ll1 14:58 Provided Education on: ER procedures and process. Warm blanket given. ll1 15:03 Raleigh Cyr, RN is Primary Nurse. ll1 15:14 Aura Velazquez, RN is Primary Nurse. db 16:19 Patient has correct armband on for positive identification. Bed in low position. Call db light in reach. Side rails up X2. Pulse ox on. NIBP on. 16:27 XRAY Humerus RIGHT In Process Unspecified. EDMS 16:27 XRAY Femur RIGHT In Process Unspecified. EDMS 17:53 Sling applied to right arm. db 18:22 No provider procedures requiring assistance completed. Patient did not have IV access db during this emergency room visit. Administered Medications: 15:00 Drug: [place] PO 10 mg-325 mg 1 tabs PO once Route: PO; db 18:31 Follow up: Response: No adverse reaction db 17:44 Drug: morphine IM 4 mg IM once Route: IM; Site: right ventrogluteal; db 18:31 Follow up: Response: No adverse reaction db Medication: 15:30 VIS not applicable for this client. db Outcome: 17:59 Discharge ordered by . rn 18:22 Discharged to home ambulatory, with family, db 18:22 Condition: stable 18:22 Discharge instructions given to patient, family, Instructed on discharge instructions, follow up and referral plans. Prescriptions given X 1, 18:31 Patient left the ED. db Signatures: Dispatcher [employer] EDMS Ean Dumont MD MD rn Lewis, Lynsay RN RN ll1 Aura Velazquez, RN RN db Laura Hodge al6
--- NOTE | 2025-02-07 17:59 | EDPHYS ---
Physician Documentation [facility] Name: Michelle Saavedra Age: 69 yrs Sex: Female : 1955 Arrival Date: 02/07/2025 Time: 14:19 Bed 13 Private MD: ED Physician Ean Dumont HPI: 02/07 14:32 This 69 yrs old Female presents to ER via Wheelchair with complaints of Fall rn Injury. 14:32 Patient reports she was tripped by her dog, fell onto her right side. Reports mainly rn right shoulder pain as she landed with her arm tucked. Also reports right mid thigh pain. No other trauma or injury. Fell last week and was seen for rib injury, reports CT only showed bruised ribs no breaks. No head injury or LOC. No neck or back pain.. Historical: - Allergies: 14:28 No Known Allergies; ll1 - PMHx: 14:28 Atrial fibrillation; COPD; Hypercholesterolemia; Hypertensive disorder; mechanical ll1 valve; - PSHx: 14:28 Hip surgery; ll1 - Immunization history:: Adult Immunizations up to date. - Infectious Disease History:: Denies. - Social history:: Smoking status: Patient denies any tobacco usage or history of. - Family history:: not pertinent. - Hospitalizations: : No recent hospitalization is reported. ROS: 14:32 Constitutional: Negative for fever, chills, and weight loss, Neck: Negative for injury, rn pain, and swelling, Cardiovascular: Negative for chest pain, palpitations, and edema, Respiratory: Negative for shortness of breath, cough, wheezing, and pleuritic chest pain, Abdomen/GI: Negative for abdominal pain, nausea, vomiting, diarrhea, and constipation, Back: Negative for injury and pain, MS/Extremity: Positive for right shoulder and right femur pain Skin: Negative for injury, rash, and discoloration, Neuro: Negative for headache, weakness, numbness, tingling, and seizure, Exam: 14:32 Constitutional: This is a well developed, well nourished patient who is awake, alert, rn and in no acute distress. Neck: No midline cervical tenderness Chest/axilla: No focal rib tenderness or crepitus Cardiovascular: Regular rate and rhythm. No pulse deficits. MS/ Extremity: Pulses equal, no cyanosis. Neurovascular intact. Painful range of motion of the right humerus. Mild swelling about the humeral head. Mild painful range of motion of the right thigh/femur. No significant swelling or hematoma. No shortening or rotational deformity noted. Neuro: Awake and alert, GCS 15 Vital Signs: 14:28 BP 104 / 50; Pulse 73; Resp 17; Temp 97.6; Pulse Ox 97% ; Weight 48.99 kg; Height 5 ft. ll1 3 in. ; Pain 10/10; 16:03 BP 149 / 70; Pulse 68; Resp 18; Pulse Ox 95% on R/A; db 17:30 BP 170 / 68; Pulse 70; Resp 16; Pulse Ox 95% on R/A; db 18:11 BP 173 / 63; Pulse 71; Resp 16; Pulse Ox 95% ; db 14:28 Body Mass Index 19.13 (48.99 kg, 160.02 cm) ll1 14:28 Pain Scale: Adult ll1 [place] Coma Score: 16:03 Eye Response: spontaneous(4). Motor Response: obeys commands(6). Verbal Response: db oriented(5). Total: 15. Trauma Score (Adult): 16:03 Eye Response: spontaneous(1); Verbal Response: oriented(1); Motor Response: obeys db commands(2); Systolic BP: > 89 mm Hg(4); Respiratory Rate: 10 to 29 per min(4); [place] Score: 15; Trauma Score: 12 MDM: 14:22 Medical Screening Exam initiated rn 16:59 Differential diagnosis: contusion, fracture, sprain, strain. Data reviewed: vital rn signs, nurses notes, radiologic studies, plain films, and as a result, I will discharge patient. Independent interpretation of the following test(s) in the Emergency Department X-Ray: My interpretation is X-ray images right shoulder show possible proximal humerus fracture per my interpretation. X-ray images right femur negative for acute fracture or dislocation, shows previous hip arthroplasty that appears intact per my interpretation. Care significantly affected by the following chronic conditions: Hypertension, Chronic Obstructive Pulmonary Disease. Counseling: I had a detailed discussion with the patient and/or guardian regarding the historical points, exam findings, and any diagnostic results supporting the discharge/admit diagnosis, radiology results, the need for outpatient follow up, to return to the emergency department if symptoms worsen or persist or if there are any questions or concerns that arise at home. Response to treatment: the patient's symptoms have mildly improved after treatment, and as a result, I will discharge patient. Special discussion: I discussed with the patient/guardian in detail that at this point there is no indication for admission to the hospital. It is understood, however, that if the symptoms persist or worsen the patient needs to return immediately for re-evaluation. Based on the history and exam findings, there is no indication for further emergent testing or inpatient evaluation. I discussed with the patient/guardian the need to see the orthopedic surgeon for further evaluation of the symptoms. ED course: Patient with humeral fracture, seems to involve only greater tuberosity of right humerus. Will place in sling and prescribed pain medication as patient states she does not have any active pain medication prescriptions. Patient has seen Dr. Nelson in the past, I recommend following up for further recommendations although need for surgery is low. I have personally reviewed all of the results, including but not limited to imaging deemed necessary to safely discharge this patient at this time. All results given to and printed out for patient. I personally went over all the results with the patient and answered all questions. Patient will follow-up with PCP and or specialist as discussed. Return precautions given and understood.. 02/07 14:30 Order name: XRAY Humerus RIGHT; Complete Time: 16:51 rn 02/07 14:30 Order name: XRAY Femur RIGHT; Complete Time: 16:51 rn 02/07 16:57 Order name: Sling; Complete Time: 17:45 rn Administered Medications: 15:00 Drug: [place] PO 10 mg-325 mg 1 tabs PO once Route: PO; db 18:31 Follow up: Response: No adverse reaction db 17:44 Drug: morphine IM 4 mg IM once Route: IM; Site: right ventrogluteal; db 18:31 Follow up: Response: No adverse reaction db Disposition Summary: 02/07/25 17:59 Discharge Ordered Notes: Location: Home rn Problem: new rn Symptoms: have improved rn Condition: Stable rn Diagnosis - Fracture of greater tuberosity of humerus rn - Contusion of right thigh rn Followup: rn - With: Private Physician - When: As needed - Reason: Recheck today's complaints, Re-evaluation by your physician Discharge Instructions: - Discharge Summary Sheet rn - Humerus Fracture Treated With Immobilization rn Forms: - Medication Reconciliation Form rn - Antibiotic rn concurrent review - Prescription Opioid Use rn - Patient Portal Instructions rn - Leadership Thank You Letter rn Prescriptions: - Tylenol-Codeine #3 300mg-30mg Oral tablet - take 1 tablet ORAL route every 6 hours As needed; 12 tablet; Refills: 0, rn Product Selection Permitted Signatures: Dispatcher [employer] EDMS Ean Dumont MD MD rn Lewis, Lynsay, RN RN ll1 Aura Velazquez RN RN db Corrections: (The following items were deleted from the chart) 14:30 14:30 Femur Right+RAD.RAD.BRZ ordered. EDMS EDMS
[2025-02-07 18:56] VITALS: TEMP 97.6
[2025-02-07 18:59] VITALS: O2SAT 95
[2025-02-07 19:01] VITALS: BP 173/63
== END 2025-02-07 18:31 | disposition home or self-care (01) ==
LOC: ER 14:19
DX: S42.251A Displaced fracture of greater tuberosity of right humerus, initial encounter for closed fracture (principal); S70.11XA Contusion of right thigh, initial encounter; W01.0XXA Fall on same level from slipping, tripping and stumbling without subsequent striking against object, initial encounter
CPT/HCPCS: 73060; 73552; 96372; 99284; J2270